=== PATIENT | female | born 1995 | race Caucasian/White ===

== ENCOUNTER 2017-11-15 20:39 | Emergency (ER) | payer BC, MEDICAID, SELFPAY ==
[2017-11-15 20:41] VITALS: BP 112/75; PULSE 84; RESP 15; TEMP 36.8; O2SAT 100; BMI 22.4
--- NOTE | 2017-11-15 21:23 | US_ITS ---
STUDY: FIRST TRIMESTER OBSTETRICAL ULTRASOUND REASON FOR EXAM: Female, 22 years old. . Pain. LMP: 08/29/2017 TECHNIQUE: Grayscale, color and Doppler images were obtained by transvaginal scanning PRIOR ULTRASOUND: None. FINDINGS: There is visualization of a single gestational sac in a normal intrauterine position. There is a visualized yolk sac. There is visualization of a live embryo. The crown-rump length (CRL) measures 4.5 cm, indicating an estimated gestational age (EGA) of 11 weeks, 3 days. There is demonstrated cardiac activity with a heart rate of 178 bpm. The uterus measures 9.6 x 7.4 x 5.8. There is no demonstrated uterine fibroid. The cervix is closed. The right ovary measures 3.5 x 2.6 x 2.7 cm. There is no right ovarian cyst. There is no visualized right adnexal mass or complex lesion. The left ovary measures 2.8 x 1.8 x 1.2 cm. There is no left ovarian cyst. There is no visualized left adnexal mass or complex lesion. There is no fluid in the cul de sac. US/Transvaginal w/Preg US IMPRESSION: Single live intrauterine gestation, as described above. Electronically Signed: Skinny Vanessa, at 22:37 EST Tel , Service support ,
--- NOTE | 2017-11-15 21:27 | ED.VISSUMM ---
- ER Visit Summary Date of Service: 11/15/17 Chief Complaint: [Pelvic cramping] History of Present Illness: The patient is a 22 F who presents the emergency department. She is 11 weeks . Yesterday she had a gastroenteritis and was vomiting with diarrhea. She spent 4 hours in the emergency department. She received Phenergan. This morning she had a brownish vaginal discharge. This afternoon about 3 PM she started having lower abdominal cramping. She feels pressure in her lower pelvis. This is her first . She is followed by Bonnie Watson. She had an ultrasound at 9 weeks which is unremarkable. She does complain of some mild dysuria today] Physical Examination: [] Vital signs normal WN WD NAD PERRL EOMI MMM NECK supple and nontender, no masses RRR no murmur rub or gallop, no peripheral edema, symmetric radial pulses CTAB no respiratory distress ABDOMEN is soft she has mild tenderness of bilateral lower quadrants and suprapubic area, normal bowel sounds, no distension, no rebound or guarding SKIN is warm and dry no rashes Alert and Oriented x3, CN II-XII in tact, no motor or sensory deficits, gait normal No lymphadenopathy Test Results: [] Emergency Department Course and Treatment: [Screening ABO blood type was sent. Serum hCG was sent. Patient was given Tylenol for discomfort. Ultrasound was ordered. Ultrasound was obtained and showed a live IUP with a heart rate of 178 gestational age 11 weeks and 3 days. Blood type was O+ serum hCG was 73,000. Pelvic exam showed a closed cervix with thick white discharge. GC and Chlamydia cultures were sent. Patient did continue to have cramping however there was no blood on exam and she reported no more bleeding. I did precaution her about the possibility of miscarriage and she understands reasons for which to return and will follow up with her APPLICATION INTEGRATOR] Treatment Plan: [] Disposition: [Discharge] Impression: [Threatened miscarriage] This note was generated with [employer] dictation software. It may contain incorrect words, spelling, and punctuation that were not noted in review of the chart prior to signing ED Disposition - Plan for ED Patient: Chief Complaint: Vag Bld, Preg Referrals: Kevin Stauffer MD [Primary Care Provider] -
[2017-11-15] MEDS: Acetaminophen 500 MG Tablet 1000 MG PO (21:28)
[2017-11-15 22:24] LABS: Color, Urine Yellow (Yellow); Glucose, Dipstick Normal (Normal); Ketone-Dipstick Negative (Negative); Leukocyte Esterase-Dipstick Negative /ul (Negative); Nitrite-Dipstick Negative (Negative); Occult Blood-Urine 25 /ul (Negative); Protein-Dipstick Negative (Negative); Specific Gravity, Urine 1.025 (1.002-1.030); Urine Bilirubin Dipstick Negative (Negative); Urine Clarity Clear (Clear); Urine Urobilinogen Normal (Normal)
[2017-11-15 22:36] LABS: Squamous Epithelial Cells - UA 0-5 SEEN /hpf (5-10)
[2017-11-15 22:37] LABS: Bacteria RARE /hpf (None Seen); Mucous, Urine 1+ /hpf (<or=2+); Red Blood Cells-Urine 0-5 SEEN /hpf (0-5); White Blood Cells 0 SEEN /hpf (0-5)
--- NOTE | 2017-11-15 23:26 | ED.DEP ---
ED Disposition - Plan for ED Patient: Chief Complaint: Vag Bld, Preg Instructions: ED Miscarriage Poss Referrals: Diana Andrade MD [STAFF PHYSICIAN] - 11/17/17
[2017-11-15 23:35] VITALS: BP 119/74; PULSE 73; RESP 18; O2SAT 99
[2017-11-16 01:24] LABS: Chlamydia Trachomatis by PCR Negative (Negative); Neisserai gonorrhoeae by PCR Negative (Negative); Probe Check PASS; Sample Adequacy Control PASS; Specimen Processing Control PASS
== END 2017-11-15 23:36 | disposition home or self-care (01) ==
LOC: ED 21:32
PROVIDERS: Emergency Provider Emergency Medicine; Family Provider Family Medicine; PCP Family Medicine
DX: O20.0 Threatened abortion (principal); Z3A.11 11 weeks gestation of pregnancy
CPT/HCPCS: 76817; 81001; 84702; 86900; 86901; 87491; 87591; 99283; J7030

== ENCOUNTER → 2017-11-30 14:51 | Outpatient (CLI) | payer BC, MEDICAID, SELFPAY ==
[2017-11-30 16:25] LABS: Free T3 2.2 pg/mL (2.18-3.98); T4 Free Direct 1.09 ng/dL (0.76-1.46); Thyroid Stim Hormone (TSH) 7.79 uIU/mL (0.358-3.74)
== END ==
PROVIDERS: Family Provider Family Medicine; PCP Family Medicine; Visit Provider Obstetrics & Gynecology
DX: O99.280 Endocrine, nutritional and metabolic diseases complicating pregnancy, unspecified trimester (principal); E03.9 Hypothyroidism, unspecified; Z3A.00 Weeks of gestation of pregnancy not specified
CPT/HCPCS: 36415; 84439; 84443; 84481

== ENCOUNTER → 2017-12-28 09:55 | Outpatient (CLI) | payer BC, MEDICAID, SELFPAY ==
[2017-12-28 11:02] LABS: Free T3 2.7 pg/mL (2.18-3.98); T4 Free Direct 1.31 ng/dL (0.76-1.46); Thyroid Stim Hormone (TSH) 3.68 uIU/mL (0.358-3.74)
[2017-12-31 03:01] LABS: AFP MoM Value 1.03 (.); AFP Value-EIA 41.5 ng/mL (.); Comment Report (.); DIA MoM Value 1.18 (.); DIA Value-EIA 211.04 pg/mL (.); DSR (By Age) 1022 (.); DSR (Second Trimester) 6187 (.); Gestat. Age Based On As provided (.); Gestational Age 17.3 WEEKS (.); Insulin Dep Diabetes No (.); Maternal Age At EDD 25.2 YEARS (.)
== END ==
PROVIDERS: Visit Provider Obstetrics & Gynecology
DX: O99.282 Endocrine, nutritional and metabolic diseases complicating pregnancy, second trimester (principal); E03.9 Hypothyroidism, unspecified; Z3A.00 Weeks of gestation of pregnancy not specified
CPT/HCPCS: 36415; 82105; 82677; 84439; 84443; 84481; 84702; 86336

== ENCOUNTER 2018-02-09 09:02 | Emergency (ER) | payer BC, MEDICAID, SELFPAY ==
[2018-02-09 09:03] VITALS: BP 128/70; PULSE 106; RESP 24; TEMP 36.8; O2SAT 100; BMI 25.0
--- NOTE | 2018-02-09 09:29 | ED.DCSUM_ITS ---
- ER Visit Summary Date of Service: 02/09/18 Chief Complaint: Cough and congestion History of Present Illness: The patient is a 22 F history of asthma, anemia and currently 6 months . For last 3-4 days she has had nasal congestion and a nonproductive cough. She denies hemoptysis. Only chest pain is with coughing. No fever. No vomiting some mild diarrhea no dysuria. No vaginal bleeding. Her due date is May of this year. Physical Examination: Appearing young female no acute distress. Pulse ox 100% on room air no signs of hypoxia. H EENT exam nasal congestion clear rhinorrhea. Posterior pharynx moist and pink without erythema or exudate. No trouble breathing or swallowing no drooling or stridor neck nontender no JVD no lymphadenopathy. Lungs dry cough but no rales, rhonchi or wheezing equal and symmetrical no distress heart regular rhythm rate about 100 205 no murmur. Abdomen is soft and nontender. Normal bowel sounds no peritoneal signs. Gravid nontender uterus she is moving all 4 extremities. Calves are nontender without edema or cords. Neurologically she is awake and alert without focal deficits. Posterior lung auscultation is unchanged. Test Results: X-ray AP and lateral view no acute abnormality read both by myself the radiologist. Emergency Department Course and Treatment: The patient is a viral URI. She does not need antibiotics. She is not wheezing I do not feel she needs steroids and reportedly in the past she had angioedema when she was taking steroids and and Zithromax in the right unsure which one caused the reaction. She had to be intubated that time Treatment Plan: Patient is doing well on repeat exam at 1023. She will be treated as a viral URI. Disposition: Discharged Impression: Viral bronchitis 6 months This note was generated with [employer] dictation software. It may contain incorrect words, spelling, and punctuation that were not noted in review of the chart prior to signing ED Disposition - Plan for ED Patient: Chief Complaint: Shortness of Breath Referrals: Kevin Stauffer MD [Primary Care Provider] -
--- NOTE | 2018-02-09 09:35 | RAD_ITS ---
STUDY: X-RAY CHEST REASON FOR EXAM: Female, 22 years old. Cough and shortness of breath. The patient is six-month . The patient was shielded appropriately. TECHNIQUE: PA and lateral views of the chest. COMPARISON: Comparison is made with prior study dated October 17, 2015. FINDINGS: The lungs are clear and expanded. There is no demonstrated pleural abnormality. Normal size heart. Normal mediastinum and phillip. Normal visualized pulmonary arteries. Normal visualized aortic arch and descending thoracic aorta. Normal visualized thoracic spine. Normal visualized ribs, clavicles, and shoulders. There is no demonstrated abnormality of the visualized soft tissue structures of the upper abdomen. RAD/Chest PA and Lateral IMPRESSION: Normal x-ray examination of the chest. Electronically Signed: Lonnie Kim MD at 9:50 EDT Tel [phone], Service support ,
[2018-02-09] MEDS: Ipratropium/Albuterol Sulfate 3 ML AMPUL.NEB INHALATION (09:40)
[2018-02-09 09:42] VITALS: PULSE 116; RESP 21; O2SAT 100
--- NOTE | 2018-02-09 10:25 | ED.DEP ---
ED Disposition - Plan for ED Patient: Disposition: Home or Assisted Living Chief Complaint: Shortness of Breath Instructions: ED URI Viral Referrals: Kevin Stauffer MD [Primary Care Provider] - 1 Week if not improving Additional Instructions: Fluids and rest. Tylenol as needed.
== END 2018-02-09 10:39 | disposition home or self-care (01) ==
PROVIDERS: Emergency Provider Emergency Medicine; Family Provider Family Medicine; PCP Family Medicine
DX: O26.893 Other specified pregnancy related conditions, third trimester (principal); J06.9 Acute upper respiratory infection, unspecified; J20.8 Acute bronchitis due to other specified organisms; Z3A.00 Weeks of gestation of pregnancy not specified
CPT/HCPCS: 71046; 94640; 99282

== ENCOUNTER 2018-02-13 18:30 | Outpatient (CLI) | payer BC, MEDICAID, SELFPAY ==
[2018-02-13 18:42] VITALS: BMI 25.7
[2018-02-13 19:35] LABS: Mucous, Urine 0 SEEN /hpf (<or=2+); Squamous Epithelial Cells - UA 0 SEEN /hpf (5-10)
[2018-02-13] MEDS: Acetaminophen 500 MG Tablet 1000 MG PO (19:40)
[2018-02-13] MEDS: Nitrofurantoin Macrocrystals 100 MG Capsule PO (19:40)
[2018-02-13 19:50] LABS: Color, Urine Yellow (Yellow); Glucose, Dipstick Normal (Normal); Ketone-Dipstick Negative (Negative); Leukocyte Esterase-Dipstick 500 /ul (Negative); Nitrite-Dipstick Negative (Negative); Occult Blood-Urine 150 /ul (Negative); Protein-Dipstick 30 mg/dl (Negative); Urine Bilirubin Dipstick Negative (Negative); Urine Clarity Sl. Cloudy (Clear); Urine Urobilinogen Normal (Normal)
[2018-02-13] MEDS: Phenazopyridine 95 MG Tablet 190 MG PO (19:51)
[2018-02-13 20:51] LABS: Bacteria 2+ /hpf (None Seen); Red Blood Cells-Urine 10-25 SEEN /hpf (0-5); White Blood Cells 50-100 SEEN /hpf (0-5)
[2018-02-13 21:04] VITALS: TEMP 35.9
--- NOTE | 2018-02-14 07:57 | OB.TRI.NOTE ---
History of Present Illness Date of Service: 02/13/18 Was patient seen by the physician?: No Reason For Visit: BLEEDING cramping dysuria Date of Service: 02/13/18 Final MORRO: 06/05/18 Gestational age: 24 Weeks and 0 Days History of Present Illness: 22 yo female presents at 24 wk with pain with urination, lower abdominal cramping and some spotting. She had intercourse recently. No continued bleeding. + FM. unsure if contractions. no ROM. Home Medications Medication Instructions Recorded Levothyroxine [Synthroid] 150 mcg PO DAILY 02/04/16 Vit No.130/Iron/FA 1 each PO DAILY 02/27/17 [ Vitamins] Pyridoxine HCl [Vitamin B-6] 100 mg PO DAILY 11/14/17 Kelp 150 mcg PO DAILY 02/09/18 Allergies azithromycin [From Zithromax Z-Ruiz] Allergy (Verified 02/09/18 09:03) Anaphylaxis bacitracin [From Neosporin (vtz-zat-ccslh)] Allergy (Verified 02/09/18 09:03) Swelling bacitracin zinc [From Neosporin (rma-vre-qlxzd)] Allergy (Verified 02/09/18 09:03) Swelling ketorolac [From Toradol] Allergy (Verified 02/09/18 09:03) Other latex Allergy (Verified 02/09/18 09:03) Rash neomycin sulfate [From Neosporin (nma-ojm-mngje)] Allergy (Verified 02/09/18 09:03) Swelling polymyxin B [From Neosporin (ruf-ppo-gfhvy)] Allergy (Verified 02/09/18 09:03) Swelling prednisone Allergy (Verified 02/09/18 09:03) Anaphylaxis EXCEDRIN Allergy (Uncoded 02/09/18 09:03) Anaphylaxis Physical Exam Vitals: Vital Signs Temp 96.6 F L 02/13/18 21:04 NST - FHR Rate Baby A Baseline: 130s with accels to 150s Variability:: Moderate Accelerations:: 10 x 10 Decelerations:: None NST Reactive:: Yes, Appropriate for gestational age FHR Category:: Category I Uterine Activity:: No UCs noted Impression/Plan 24 wk EGA UA with 150 occult blood 500 LE, 2+ bacteria. Sp Gr 1.020 Urinary tract infection, w/o fever or CVAT Macrobid and Pyridium given Macrobid x 7 d planned and RX [facility] appt as planned.
--- NOTE | 2018-02-14 08:02 | OB.TRI.HP_ITS ---
History of Present Illness Date of Service: 02/13/18 Was patient seen by the physician?: No Reason For Visit: BLEEDING cramping dysuria Date of Service: 02/13/18 Final MORRO: 06/05/18 Gestational age: 24 Weeks and 0 Days History of Present Illness: 22 yo female presents at 24 wk with pain with urination, lower abdominal cramping and some spotting. She had intercourse recently. No continued bleeding. + FM. unsure if contractions. no ROM. Home Medications Medication Instructions Recorded Levothyroxine [Synthroid] 150 mcg PO DAILY 02/04/16 Vit No.130/Iron/FA 1 each PO DAILY 02/27/17 [ Vitamins] Pyridoxine HCl [Vitamin B-6] 100 mg PO DAILY 11/14/17 Kelp 150 mcg PO DAILY 02/09/18 Allergies azithromycin [From Zithromax Z-Ruiz] Allergy (Verified 02/09/18 09:03) Anaphylaxis bacitracin [From Neosporin (qve-uam-nqrqo)] Allergy (Verified 02/09/18 09:03) Swelling bacitracin zinc [From Neosporin (dzk-mzw-jssec)] Allergy (Verified 02/09/18 09: 03) Swelling ketorolac [From Toradol] Allergy (Verified 02/09/18 09:03) Other latex Allergy (Verified 02/09/18 09:03) Rash neomycin sulfate [From Neosporin (doa-ove-zlmll)] Allergy (Verified 02/09/18 09: 03) Swelling polymyxin B [From Neosporin (cfp-ngl-tarpt)] Allergy (Verified 02/09/18 09:03) Swelling prednisone Allergy (Verified 02/09/18 09:03) Anaphylaxis EXCEDRIN Allergy (Uncoded 02/09/18 09:03) Anaphylaxis Physical Exam Vitals: Vital Signs Temp 96.6 F L 02/13/18 21:04 NST - FHR Rate Baby A Baseline: 130s with accels to 150s Variability:: Moderate Accelerations:: 10 x 10 Decelerations:: None NST Reactive:: Yes, Appropriate for gestational age FHR Category:: Category I Uterine Activity:: No UCs noted Impression/Plan 24 wk EGA UA with 150 occult blood 500 LE, 2+ bacteria. Sp Gr 1.020 Urinary tract infection, w/o fever or CVAT Macrobid and Pyridium given Macrobid x 7 d planned and RX [facility] appt as planned.
== END 2018-02-13 21:05 | disposition home or self-care (01) ==
LOC: WPOUT 18:30 → WP 18:31
PROVIDERS: Family Provider Family Medicine; PCP Family Medicine; Visit Provider Obstetrics & Gynecology
DX: O23.42 Unspecified infection of urinary tract in pregnancy, second trimester (principal); Z3A.24 24 weeks gestation of pregnancy
CPT/HCPCS: 59025; 59050; 81001; 87077; 87086; 87088; 87186; 99218; G0378

== ENCOUNTER → 2018-02-22 10:56 | Outpatient (CLI) | payer BC, MEDICAID, SELFPAY ==
[2018-02-22 14:34] LABS: Free T3 2.7 pg/mL (2.18-3.98); T4 Free Direct 1.13 ng/dL (0.76-1.46); Thyroid Stim Hormone (TSH) 0.56 uIU/mL (0.358-3.74)
== END ==
PROVIDERS: Visit Provider Obstetrics & Gynecology
DX: O99.282 Endocrine, nutritional and metabolic diseases complicating pregnancy, second trimester (principal); E03.9 Hypothyroidism, unspecified; Z3A.00 Weeks of gestation of pregnancy not specified
CPT/HCPCS: 36415; 84439; 84443; 84481

== ENCOUNTER → 2018-03-20 11:29 | Outpatient (CLI) | payer BC, MEDICAID, SELFPAY ==
[2018-03-20 11:40] LABS: Mucous, Urine 0 SEEN /hpf (<or=2+); Red Blood Cells-Urine 0 SEEN /hpf (0-5)
[2018-03-20 13:51] LABS: Color, Urine Yellow (Yellow); Glucose, Dipstick Normal (Normal); Ketone-Dipstick Negative (Negative); Leukocyte Esterase-Dipstick Negative /ul (Negative); Nitrite-Dipstick Negative (Negative); Occult Blood-Urine 10 /ul (Negative); Protein-Dipstick Negative (Negative); Urine Bilirubin Dipstick Negative (Negative); Urine Clarity Cloudy (Clear); Urine Urobilinogen Normal (Normal)
[2018-03-20 14:05] LABS: Hematocrit 29.9 % (37-47); Hemoglobin 9.7 g/dl (12.0-15.0); Mean Corp Hgb Conc 32.4 g/gl (32-36); Mean Corpuscular Hgb 26.3 pg (27.0-32.0); Mean Platelet Vol. 10.4 fl (6.2-12.0); Platelet Count 299 K/mm3 (150-450); RBC Distribution Width CV 14.1 % (11.6-14.6); RBC Distribution Width SD 40.3 fl (35.1-43.9); Red Blood Count 3.69 M/mm3 (4.2-5.4); White Blood Count 13.3 K/mm3 (4.4-11.0)
[2018-03-20 14:09] LABS: Amorphous Sediment 3+; Bacteria 2+ /hpf (None Seen); Squamous Epithelial Cells - UA 0-5 SEEN /hpf (5-10); White Blood Cells 0-5 SEEN /hpf (0-5)
[2018-03-20 14:10] LABS: Scan Indicated on CBC? Y/N NO
[2018-03-20 15:58] LABS: Glucose Challenge Gest 1H 50g 119 mg/dL (70-140)
== END ==
PROVIDERS: Visit Provider Obstetrics & Gynecology
DX: O23.40 Unspecified infection of urinary tract in pregnancy, unspecified trimester (principal); Z3A.00 Weeks of gestation of pregnancy not specified
CPT/HCPCS: 36415; 81001; 82950; 85027; 87086; 87088

== ENCOUNTER → 2018-04-20 16:15 | Outpatient (CLI) | payer BC, MEDICAID, SELFPAY ==
[2018-04-20 16:44] LABS: Hematocrit 33.1 % (37-47); Hemoglobin 10.5 g/dl (12.0-15.0); Mean Corp Hgb Conc 31.7 g/gl (32-36); Mean Corpuscular Hgb 25.3 pg (27.0-32.0); Mean Corpuscular Volume 79.8 fL (81-99); Mean Platelet Vol. 9.9 fl (6.2-12.0); Platelet Count 270 K/mm3 (150-450); RBC Distribution Width CV 14.3 % (11.6-14.6); RBC Distribution Width SD 41.5 fl (35.1-43.9); Red Blood Count 4.15 M/mm3 (4.2-5.4); White Blood Count 13.6 K/mm3 (4.4-11.0)
[2018-04-20 17:03] LABS: ALB/GLOB Ratio 0.6 RATIO (0.9-2.4); AST(SGOT) 11 U/L (15-37); Alanine Aminotransfer ALT/SGPT 16 U/L (13-56); Albumin, Serum 2.8 g/dL (3.2-5.0); Alkaline Phosphatase 87 U/L (45-117); Anion Gap 10 (5-15); BUN 4 mg/dL (7-18); BUN/Creat Ratio 8.1 RATIO (10-20); Calcium,Total 8.2 mg/dL (8.5-10.1); Chloride 105 mmol/L (98-107); Creatinine, Serum 0.49 mg/dL (0.55-1.02); EST Glomerular Filtration Rate 162 mL/min (>60); Est Glom Filt Rate - Afr Amer 196 mL/min (>60); Globulin 4.5 g/dL (2.2-4.2); Glucose 70 mg/dL (74-106); Potassium 3.4 mmol/L (3.5-5.1); Protein, Total 7.3 g/dL (6.4-8.2); Sodium Level 139 mmol/L (136-145); Uric Acid 3.1 mg/dL (2.6-6.0)
[2018-04-20 17:05] LABS: Scan Indicated on CBC? Y/N NO
[2018-04-20 17:20] LABS: Fetal Fibronectin Negative
[2018-04-20 17:26] LABS: Protein, Urine (Random) 22.8 mg/dL (<11.9)
== END ==
PROVIDERS: Visit Provider Obstetrics & Gynecology
DX: Z34.83 Encounter for supervision of other normal pregnancy, third trimester (principal); R10.9 Unspecified abdominal pain
CPT/HCPCS: 36415; 80053; 82570; 82731; 84156; 84550; 85027

== ENCOUNTER 2018-04-27 15:10 | Outpatient (CLI) | payer BC, MEDICAID, SELFPAY ==
[2018-04-27 15:35] VITALS: BMI 28.0
[2018-04-27 15:52] LABS: ROM Internal Control Test YES-OK TO RESULT pt. (Internal QC); ROM Patient Test Negative (Negative)
[2018-04-27 16:16] LABS: Mucous, Urine 0 SEEN /hpf (<or=2+)
[2018-04-27 16:41] LABS: Color, Urine Yellow (Yellow); Glucose, Dipstick Normal (Normal); Ketone-Dipstick Negative (Negative); Leukocyte Esterase-Dipstick Negative /ul (Negative); Nitrite-Dipstick Negative (Negative); Occult Blood-Urine 250 /ul (Negative); Protein-Dipstick Negative (Negative); Urine Bilirubin Dipstick Negative (Negative); Urine Clarity Sl. Cloudy (Clear); Urine Urobilinogen Normal (Normal)
[2018-04-27 16:57] LABS: Bacteria RARE /hpf (None Seen); Red Blood Cells-Urine 0-5 SEEN /hpf (0-5); Squamous Epithelial Cells - UA 0-5 SEEN /hpf (5-10); White Blood Cells 0-5 SEEN /hpf (0-5)
--- NOTE | 2018-04-30 07:53 | OB.TRI.NOTE ---
History of Present Illness Date of Service: 04/27/18 Was patient seen by the physician?: No Reason For Visit: R/O PREMATURE LABOR Date of Service: 04/27/18 Final MORRO: 06/05/18 Gestational age: 34 Weeks and 3 Days History of Present Illness: 23 yo female at 34 3/7 wk with CC of abdominal pain starting at 1400 and ? SROM. with a jaycee of fluid after voiding. Allergies azithromycin [From Zithromax Z-Ruiz] Allergy (Verified 02/09/18 09:03) Anaphylaxis bacitracin [From Neosporin (vwr-kor-louwx)] Allergy (Verified 02/09/18 09:03) Swelling bacitracin zinc [From Neosporin (nro-pob-imogk)] Allergy (Verified 02/09/18 09:03) Swelling ketorolac [From Toradol] Allergy (Verified 02/09/18 09:03) Other latex Allergy (Verified 02/09/18 09:03) Rash neomycin sulfate [From Neosporin (xnu-hnu-qwrst)] Allergy (Verified 02/09/18 09:03) Swelling polymyxin B [From Neosporin (hcs-rmh-drhys)] Allergy (Verified 02/09/18 09:03) Swelling prednisone Allergy (Verified 02/09/18 09:03) Anaphylaxis EXCEDRIN Allergy (Uncoded 02/09/18 09:03) Anaphylaxis Physical Exam Cervix Dilation (cm): 0 - Ext os FT, Int os CL Station: -3 Effacement (%): 0 - ROM NEGATIVE NST - FHR Rate Baby A Baseline: 120-130 with accels to 170s variable to 100 (quick return) Variability:: Moderate Accelerations:: 15 x 15 Decelerations:: Variable NST Reactive:: Yes, Appropriate for gestational age FHR Category:: Category I Uterine Activity:: Irreg UCs with irritability noted Impression/Plan 34 3/7 wk FALSE LABOR ROM NEG UA occult blood, but rare bacteria. NEG for UTI Home. Labor warnings Keep next appt as scheduled with Dr. HIDALGO. Return to hospital if inc s/sx of labor.
--- NOTE | 2018-04-30 08:00 | OB.TRI.HP_ITS ---
History of Present Illness Date of Service: 04/27/18 Was patient seen by the physician?: No Reason For Visit: R/O PREMATURE LABOR Date of Service: 04/27/18 Final MORRO: 06/05/18 Gestational age: 34 Weeks and 3 Days History of Present Illness: 23 yo female at 34 3/7 wk with CC of abdominal pain starting at 1400 and ? SROM. with a jaycee of fluid after voiding. Allergies azithromycin [From Zithromax Z-Ruiz] Allergy (Verified 02/09/18 09:03) Anaphylaxis bacitracin [From Neosporin (wam-yrr-dvdhx)] Allergy (Verified 02/09/18 09:03) Swelling bacitracin zinc [From Neosporin (woe-hrg-jvlak)] Allergy (Verified 02/09/18 09: 03) Swelling ketorolac [From Toradol] Allergy (Verified 02/09/18 09:03) Other latex Allergy (Verified 02/09/18 09:03) Rash neomycin sulfate [From Neosporin (rhu-zvr-hkeng)] Allergy (Verified 02/09/18 09: 03) Swelling polymyxin B [From Neosporin (qua-dxz-ycxpe)] Allergy (Verified 02/09/18 09:03) Swelling prednisone Allergy (Verified 02/09/18 09:03) Anaphylaxis EXCEDRIN Allergy (Uncoded 02/09/18 09:03) Anaphylaxis Physical Exam Cervix Dilation (cm): 0 - Ext os FT, Int os CL Station: -3 Effacement (%): 0 - ROM NEGATIVE NST - FHR Rate Baby A Baseline: 120-130 with accels to 170s variable to 100 (quick return) Variability:: Moderate Accelerations:: 15 x 15 Decelerations:: Variable NST Reactive:: Yes, Appropriate for gestational age FHR Category:: Category I Uterine Activity:: Irreg UCs with irritability noted Impression/Plan 34 3/7 wk FALSE LABOR ROM NEG UA occult blood, but rare bacteria. NEG for UTI Home. Labor warnings Keep next appt as scheduled with Dr. HIDALGO. Return to hospital if inc s/sx of labor.
== END 2018-04-27 18:15 | disposition home or self-care (01) ==
LOC: WPOUT 15:15 → WP 15:16
PROVIDERS: Family Provider Family Medicine; PCP Family Medicine; Visit Provider Obstetrics & Gynecology
DX: O47.03 False labor before 37 completed weeks of gestation, third trimester (principal); Z3A.34 34 weeks gestation of pregnancy
CPT/HCPCS: 59025; 59050; 81001; 84112; 99218; G0378

== ENCOUNTER → 2018-05-09 11:03 | Outpatient (CLI) | payer BC, MEDICAID, SELFPAY ==
[2018-05-09 17:14] LABS: Group B Strep DNA By PCR Negative (Negative); Internal Control PASS; Probe Check PASS; Specimen Processing Control PASS
== END ==
PROVIDERS: Visit Provider Obstetrics & Gynecology
DX: Z36.85 Encounter for antenatal screening for Streptococcus B (principal)
CPT/HCPCS: 87081; 87653

== ENCOUNTER 2018-05-19 10:55 | Outpatient (CLI) | payer BC, MEDICAID, SELFPAY ==
[2018-05-19 11:21] VITALS: BMI 28.8
[2018-05-19 11:50] LABS: Bacteria 0 SEEN /hpf (None Seen); Mucous, Urine 0 SEEN /hpf (<or=2+); Red Blood Cells-Urine 0 SEEN /hpf (0-5); White Blood Cells 0 SEEN /hpf (0-5)
[2018-05-19 11:58] LABS: Color, Urine Yellow (Yellow); Glucose, Dipstick Normal (Normal); Ketone-Dipstick Negative (Negative); Leukocyte Esterase-Dipstick Negative /ul (Negative); Nitrite-Dipstick Negative (Negative); Occult Blood-Urine Negative /ul (Negative); Protein-Dipstick Negative (Negative); Urine Bilirubin Dipstick Negative (Negative); Urine Clarity Clear (Clear); Urine Urobilinogen Normal (Normal)
[2018-05-19 12:05] LABS: Squamous Epithelial Cells - UA 0-5 SEEN /hpf (5-10)
--- NOTE | 2018-05-20 08:03 | OB.TRI.NOTE ---
History of Present Illness Date of Service: 05/19/18 Was patient seen by the physician?: No Reason For Visit: R/O LABOR Date of Service: 05/19/18 Final MORRO: 06/05/18 Final MORRO Source: US <20 weeks Gestational age: 37 Weeks and 5 Days History of Present Illness: C/O contractions and pressure. Allergies azithromycin [From Zithromax Z-Ruiz] Allergy (Verified 02/09/18 09:03) Anaphylaxis bacitracin [From Neosporin (jwo-nvg-ghhbx)] Allergy (Verified 02/09/18 09:03) Swelling bacitracin zinc [From Neosporin (aey-qpv-qyydu)] Allergy (Verified 02/09/18 09:03) Swelling ketorolac [From Toradol] Allergy (Verified 02/09/18 09:03) Other latex Allergy (Verified 02/09/18 09:03) Rash neomycin sulfate [From Neosporin (bsd-znc-jvjzi)] Allergy (Verified 02/09/18 09:03) Swelling polymyxin B [From Neosporin (eii-tii-oxjdj)] Allergy (Verified 02/09/18 09:03) Swelling prednisone Allergy (Verified 02/09/18 09:03) Anaphylaxis EXCEDRIN Allergy (Uncoded 02/09/18 09:03) Anaphylaxis Physical Exam General: Alert, Oriented x3, Cooperative, No apparent distress Cardiovascular: Regular rate, Regular Rhythm Lungs: Clear to auscultation, Normal air movement Abdomen: Bowel Sounds Present, Soft, Non Tender, Non-Distended, Gravid, Appropriate for Gestational Age Extremities:: No edema Neurological: Neuro 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 Signs and symptoms of labor and SROM reviewed with the patient. Will followup in office or return with increasing symptoms of labor.
--- NOTE | 2018-05-20 08:06 | OB.TRI.HP_ITS ---
History of Present Illness Date of Service: 05/19/18 Was patient seen by the physician?: No Reason For Visit: R/O LABOR Date of Service: 05/19/18 Final MORRO: 06/05/18 Final MORRO Source: US <20 weeks Gestational age: 37 Weeks and 5 Days History of Present Illness: C/O contractions and pressure. Allergies azithromycin [From Zithromax Z-Ruiz] Allergy (Verified 02/09/18 09:03) Anaphylaxis bacitracin [From Neosporin (yda-fdh-zxclm)] Allergy (Verified 02/09/18 09:03) Swelling bacitracin zinc [From Neosporin (eeq-imc-ccnvi)] Allergy (Verified 02/09/18 09: 03) Swelling ketorolac [From Toradol] Allergy (Verified 02/09/18 09:03) Other latex Allergy (Verified 02/09/18 09:03) Rash neomycin sulfate [From Neosporin (rbx-sdy-kuyco)] Allergy (Verified 02/09/18 09: 03) Swelling polymyxin B [From Neosporin (tyl-lia-oopfm)] Allergy (Verified 02/09/18 09:03) Swelling prednisone Allergy (Verified 02/09/18 09:03) Anaphylaxis EXCEDRIN Allergy (Uncoded 02/09/18 09:03) Anaphylaxis Physical Exam General: Alert, Oriented x3, Cooperative, No apparent distress Cardiovascular: Regular rate, Regular Rhythm Lungs: Clear to auscultation, Normal air movement Abdomen: Bowel Sounds Present, Soft, Non Tender, Non-Distended, Gravid, Appropriate for Gestational Age Extremities:: No edema Neurological: Neuro 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 Signs and symptoms of labor and SROM reviewed with the patient. Will followup in office or return with increasing symptoms of labor.
== END 2018-05-19 12:30 | disposition home or self-care (01) ==
LOC: WPOUT 11:00 → WP 11:01
PROVIDERS: Family Provider Family Medicine; PCP Family Medicine; Visit Provider Obstetrics & Gynecology
DX: O47.1 False labor at or after 37 completed weeks of gestation (principal); Z3A.37 37 weeks gestation of pregnancy
CPT/HCPCS: 59025; 59050; 81001; 99218; G0378

== ENCOUNTER → 2018-05-24 13:58 | Outpatient (CLI) | payer BC, MEDICAID, SELFPAY ==
[2018-05-24 15:22] LABS: Hematocrit 34.5 % (37-47); Hemoglobin 11.4 g/dl (12.0-15.0); Mean Corpuscular Hgb 26.1 pg (27.0-32.0); Mean Corpuscular Volume 78.9 fL (81-99); Mean Platelet Vol. 11.2 fl (6.2-12.0); Platelet Count 285 K/mm3 (150-450); RBC Distribution Width CV 15.1 % (11.6-14.6); Red Blood Count 4.37 M/mm3 (4.2-5.4); White Blood Count 14.2 K/mm3 (4.4-11.0)
[2018-05-24 15:25] LABS: Scan Indicated on CBC? Y/N NO
[2018-05-24 15:55] LABS: ALB/GLOB Ratio 0.6 RATIO (0.9-2.4); AST(SGOT) 14 U/L (15-37); Alanine Aminotransfer ALT/SGPT 18 U/L (13-56); Albumin, Serum 2.7 g/dL (3.2-5.0); Alkaline Phosphatase 94 U/L (45-117); Anion Gap 11 (5-15); BUN 7 mg/dL (7-18); BUN/Creat Ratio 10.2 RATIO (10-20); Calcium,Total 8.6 mg/dL (8.5-10.1); Chloride 105 mmol/L (98-107); Creatinine, Serum 0.69 mg/dL (0.55-1.02); EST Glomerular Filtration Rate 110 mL/min (>60); Est Glom Filt Rate - Afr Amer 134 mL/min (>60); Free T3 2.4 pg/mL (2.18-3.98); Globulin 4.6 g/dL (2.2-4.2); Glucose 142 mg/dL (74-106); Potassium 3.5 mmol/L (3.5-5.1); Protein, Total 7.3 g/dL (6.4-8.2); Sodium Level 140 mmol/L (136-145); Thyroid Stim Hormone (TSH) 2.49 uIU/mL (0.358-3.74); Uric Acid 4.3 mg/dL (2.6-6.0)
[2018-05-24 16:07] LABS: Protein, Urine (Random) 21.6 mg/dL (<11.9); Protein:Creat Ratio 183 mg/g CRE (0-200)
[2018-05-28 14:07] LABS: Hemoglobin Fraction A 97.8 % (96.4-98.8); Hemoglobin Fraction A2 2.2 % (1.8-3.2); Hemoglobin Fraction C 0 % (0.0); Hemoglobin Fraction F 0 % (0.0-2.0); Hemoglobin Fraction S 0 % (0.0); Hemoglobin Solubility,Panel Negative (Negative)
== END ==
PROVIDERS: Visit Provider Obstetrics & Gynecology
DX: O99.019 Anemia complicating pregnancy, unspecified trimester (principal); D64.9 Anemia, unspecified; Z3A.00 Weeks of gestation of pregnancy not specified
CPT/HCPCS: 36415; 80053; 82570; 83021; 84156; 84439; 84443; 84481; 84550; 85027; 85660

== ENCOUNTER 2018-05-30 15:13 | Inpatient (IN) | payer BC, MEDICAID, SELFPAY ==
[2018-05-30 15:47] VITALS: BMI 27.6
[2018-05-30] MEDS: Lactated Ringers 1,000 ML 50 ML IV ×2 (15:50→22:40)
[2018-05-30 16:09] LABS: Hematocrit 34.2 % (37-47); Hemoglobin 11.4 g/dl (12.0-15.0); Mean Corp Hgb Conc 33.3 g/gl (32-36); Mean Corpuscular Hgb 26.3 pg (27.0-32.0); Mean Corpuscular Volume 78.8 fL (81-99); Mean Platelet Vol. 10.9 fl (6.2-12.0); Platelet Count 298 K/mm3 (150-450); RBC Distribution Width CV 15.4 % (11.6-14.6); RBC Distribution Width SD 42.1 fl (35.1-43.9); Red Blood Count 4.34 M/mm3 (4.2-5.4); White Blood Count 12.6 K/mm3 (4.4-11.0)
[2018-05-30 16:15] LABS: Scan Indicated on CBC? Y/N NO
[2018-05-30] MEDS: 0.9% Saline Lock 10 ML Syringe IV (19:44)
[2018-05-30] MEDS: Nalbuphine 10 MG/ML Ampul IV (19:44)
[2018-05-30] MEDS: fentaNYL-bupivacaine (epidural) 100 ML BAG EPIDURAL (23:34)
[2018-05-30] MEDS: Ondansetron 4 MG/2 ML Vial IV (23:56)
[2018-05-31] VITALS (15 sets, daily range): BP systolic 97–139; BP diastolic 56–82; PULSE 87–120; RESP 15–103; TEMP 36.7–37.6; O2SAT 95–100
[2018-05-31] MEDS: Oxytocin 30 units/NS 500 ml 30 UNITS/500 ML IV.SOLN IV (00:28)
[2018-05-31] MEDS: Lactated Ringers 1,000 ML 50 ML IV ×3 (02:21→11:31)
[2018-05-31] MEDS: fentaNYL-bupivacaine (epidural) 100 ML BAG EPIDURAL (04:12)
[2018-05-31] MEDS: DiphenhydrAMINE 25 MG Capsule PO (05:55)
[2018-05-31] MEDS: Acetaminophen 325 MG Tablet PO ×2 (08:41→20:05)
[2018-05-31] MEDS: Ondansetron 4 MG/2 ML Vial IV (11:31)
--- NOTE | 2018-05-31 13:00 | PCM.PN.BLA ---
Progress Note LABOR PROGRESS NOTE Jaquelin complains of left sided body pain, worsened with contractions. She is asking about a section. AVSS GEN - Appears uncomfortable, AAO x 3 FHR 135, moderate variability, + accelerations, no decelerations TOCO 5/10 min SVE 8/80/-1, some caput present and u/l cervical edema A/P: 23yo G1 @ 39 1/7wga in labor on pitocin, Cat I FHR -IUPC placed by RN - if contractions inadequate will increase pitocin further -Recommend continue in labor. Reviewed with patient section as an alternative and will proceed if desired. risks reviewed including pain, bleeding, infection, nerve injury, hemorrhage possibly requiring further surgery including hysterectomy, bowel injury, bladder injury, ureteral injury, VTE. Patinet declines at this time. -Repeat exam in 1.5 hours and if unchanged will plan to proceed with section. -Anesthesiology consultation for further pain management
[2018-05-31] MEDS: Mag Hydrox/Al Hydrox/Simeth 30 ML UDC PO (13:06)
[2018-05-31] MEDS: Sodium Citrate/Citric Acid 30 ML UDC PO (14:30)
--- NOTE | 2018-05-31 15:27 | FALS_PTH ---
PATIENT: SONIA SZYMANSKI LOC: [facility] U#:[id number] AGE/SX: 23/F ROOM: WP008 RE05/30/[address]: Dr. Diana Watson MD : 1995 BED: 1 DIS: 06/04/2018 SPEC #: [id number] RECD: 06/01/18 11:41 STATUS: CHRIS REJamir #: [id number] LENORA: 05/31/18 15:[address]: Diana Steele DEPT: SURGICAL PATHOLOGY RECD BY: Chivo Haddad ENTERED: 06/01/18 11:41 SP TYPE: FALL TUBES OTHR DR: Dr. Kevin Stauffer MD Tissues: Fallopian tube Procedures: Surgery Specimen Level II HEADER OPERATION: Tubal ligation PRE-OP DIAGNOSIS: Desires sterilization TISSUE SUBMITTED: Fallopian tube, stitch in left tube MICROSCOPIC DIAGNOSIS Right and left fallopian tubes, bilateral partial salpingectomies: Two complete cross-sections of fallopian tubes with no pathologic change. AM:mariella 06/04/18 MICROSCOPIC DESCRIPTION Slides are reviewed. GROSS DESCRIPTION Received in fixative is one container labeled with the patient's name and designated tubes, stitch left tube. The specimen consists of two tubular pieces of craft soft tissue. The right tube measures 1 cm in length and 0.7 cm in diameter. The left tube measures 1.5 cm in length and 0.7 cm in diameter. The left tube is identified by a suture and inked black. The entire specimen is submitted in one cassette. Both pieces will be sectioned at the time of embedding. / MOISE:mariella 06/01/18 TC:5 CPT: 08558 x2
--- NOTE | 2018-05-31 16:11 | OP.PN_ITS ---
- Problem List (1) 39 weeks gestation of Status: Acute (2) Arrest of dilation, delivered, current hospitalization Status: Acute (3) delivery delivered Status: Acute H-Mqvcbmk-Qowpdmgoq PostOp Date of Procedure: 05/31/18 Primary Surgeon/Physician: Diana Andrade, bakery team leader: Ryan Mcintyre Pre-op Diagnosis: Desires elective sterilization, - - Arrest of dilation Post-Op Diagnosis: Desires elective sterilization, - - Arrest of Dilation Surgery/Procedure Performed: Primary low transverse Section, - - Bilateral tubal ligation Description of Surgical Findings:: normal tubes and ovaries and uterus Estimated Blood Loss: 600 ml Specimens Removed: placenta to [facility] Drain: [place] to straight drain Type of Anesthesia: Epidural - Admit VTE Documentation VTE Present on Admission: No VTE Mechan Device Prophylaxis: SCD's VTE Pharm Prophylaxis ordered?: No
--- NOTE | 2018-05-31 16:13 | OP.PCM_ITS ---
- Problem List (1) 39 weeks gestation of Status: Acute (2) Arrest of dilation, delivered, current hospitalization Status: Acute (3) delivery delivered Status: Acute Delivery Classification: Scheduled Final MORRO: 06/05/18 Final MORRO Source: [place] <20 weeks Gestational age: 39 Weeks and 2 Days Indications: Jaquelin is a 23-year-old 1 at 39-1/7 weeks gestational age admitted in labor. She had amniotomy and was augmented with Pitocin and progressed to 89 cm however had been 8-9 cm for more than 6 hours on Pitocin with inadequate contractions. Risks, benefits, indications and alternatives to procedure were reviewed at length. Indications for : Desires elective sterilization, Sec. Arrest of Dilitation Description of Procedure: The patient was taken to the operating room and spinal analgesia was administered. She is placed in a dorsal supine position with left lateral tilt. The perineum and abdomen were prepped and draped in sterile fashion. And the spinal was found to be adequate. A Pfannenstiel incision was made using a scalpel and brought down to incise the subcutaneous tissue and rectus fascia at the midline. Subcutaneous tissue was bluntly dissected off the fascia laterally. The fascial incision was dissected laterally and cephalad using curved Carpio scissors. The superior leaflet of the rectus fascia was grasped using Mirella clamps and bluntly dissected and sharply dissected from the underlying rectus muscle. In a similar fashion the inferior rectus fascia was dissected from the underlying muscle. The rectus muscles were bluntly at the midline. The peritoneum was identified and entered [sharply]. The bladder blade was placed into the abdomen and the vesicouterine peritoneal fold identified. The fold was incised and a bladder flap created. Bladder blade was then repositioned to the abdomen. A low transverse hysterotomy was made using the [Metzenbaum scissors] to level of the membranes. The hysterotomy was extended bluntly cephalad and caudad. The membranes were then ruptured revealing clear fluid. The head was elevated and brought to the level of the hysterotomy and the delivered revealing vigorous [ male] . A loose nuchal cord was reduced. The cord was doubly clamped and cut after 60 seconds. The infant was passed to awaiting [nursery personnel] . The placenta was [expressed] from the uterus and appeared intact on inspection. The uterus was exteriorized and cleared of debris. The hysterotomy was then repaired using 0 Vicryl running lock suture. A second imbricating layer was also placed for additional hemostasis. Attention was turned to the right adnexa and the tube was grasped using a Anival clamp. And the avascular segment of the ampullary mesosalpinx was incised using the Bovie. The proximal and distal portions of the tube were tied with 2 oh plain gut and the intervening tube excised. In similar fashion Hazel tubal ligation was also performed on the left. There is good hemostasis. The uterus and adnexa were returned to the abdomen. Srinivasan was placed along the hysterotomy site for continued hemostasis. The bladder blade was removed. The anterior cul -de-sac was cleared of debris. The peritoneum and rectus muscles were reapproximated using 2-0 Vicryl running suture. The rectus fascia was closed using 0 Vicryl running suture. The subcutaneous tissue was sponge irrigated and small capillary bleeding controlled using the Bovie device. The subcutaneous tissue was reapproximated using 2-0 Vicryl. The skin was closed using 4-0 Monocryl subcuticularly. a Mepilex occlusive dressing was placed over the incision. The fundus was firm. The patient was then transferred to the recovery room without complication. Sponge, instrument, and needle counts were correct ?2. Amniotic Membrane Rupture Type: Spontaneous Amniotic Fluid Description: Clear Placenta Disposition: [facility] Specimen(s) sent to pathology: placenta to [facility] Drain: Worley to straight drain Cord Entanglement: Around neck x 1, loose Nuchal Cord Compression: Without compression Cord Vessel Description: 3 Vessels Esitmated Blood Loss (ml): 600 Gender: Male (1 minute): 8 (5 minute): 9 Delayed cord clamping: Yes Pre-op Antibiotic Given: Ancef 2 grams IV x1 Pt instructed on risks of surgery: Bleeding, Anesthesia Risks, Infection, Need for Future C-Sections, Failure Rate of 1 to 2%, Injury to surrounding structure( s) including bowel and bladder Complications: None - Admit VTE Documentation VTE Present on Admission: No VTE Mechan Device Prophylaxis: SCD's VTE Pharm Prophylaxis ordered?: No
[2018-05-31] MEDS: Lactated Ringers 1,000 ML 100 ML IV (16:15)
--- NOTE | 2018-05-31 17:33 | NURSING ---
1730: epidural catheter removed, blue tip intact
--- NOTE | 2018-05-31 19:16 | PCM.DCCSEC ---
Discharge Diet: No Restrictions Discharge Activity: Return to Normal Activity, May Not Drive, May not drive while taking narcotic pain medications., May Shower May resume sexual activity in: 6 weeks Lifting Restrictions: 10 lb Call your doctor if your incision/area has: Continuous Slow Oozing, Sudden Increased Bleeding, Increased Pain/ Swelling, Increased Redness, Foul Smelling Discharge Call your doctor if you observe: Fever of 101 or Higher, Inability to urinate, Inability to have a bowel movement, Using more than one pad per hour, Shortness of breath, Chest pain, Calf discomfort, Uncontrolled pain Suture Line Care: Avoid Pulling/Pushing Remove Dressing in (days):: 2 Cleanse incision/area with: Soap & Water Additional Instructions: If you experience any of the following, contact your healthcare provider. Bleeding that soaks a pad every hour for 2 hours Fever 100.4 or higher Unrelieved incision or abdominal pain Swelling, redness, discharge or bleeding from your incision or episiotomy site Your incision begins to separate Problems urinating (including inability to urinate or burning while urinating). Visual changes Severe headache Flu-like symptoms Pain or redness in one of both of your breasts Pain, warmth, tenderness or swelling in your legs, especially the calf area Frequent nausea and vomiting Symptoms of depression or anxiety If you experience any of the following, call 911 or go to the nearest Emergency Room. Chest pain Problems breathing Seizure activity Partial or complete paralysis of a body part, slurred speech, weakness or drooping of the face, or a sudden inability to walk or hold your balance Allergies/Adverse Reactions: Allergies azithromycin [From Zithromax Z-Ruiz] Allergy (Verified 05/30/18 19:24) Anaphylaxis bacitracin [From Neosporin ([id number]-[id number])] Allergy (Verified 05/30/18 19:24) Swelling bacitracin zinc [From Neosporin (ike-ogq-prngd)] Allergy (Verified 05/30/18 19:24) Swelling ketorolac [From Toradol] Allergy (Verified 05/30/18 19:24) Other latex Allergy (Verified 05/30/18 19:24) Rash neomycin sulfate [From Neosporin ([id number])] Allergy (Verified 05/30/18 19:24) Swelling polymyxin B [From Neosporin ([id number]-[id number])] Allergy (Verified 05/30/18 19:24) Swelling prednisone Allergy (Verified 05/30/18 19:24) Anaphylaxis EXCEDRIN Allergy (Uncoded 02/09/18 09:03) Anaphylaxis Medications to take at Discharge Levothyroxine [Synthroid] 150 mcg PO DAILY 02/04/16 Vit No.130/Iron/FA [ Vitamins] 1 each PO DAILY 02/27/17 Kelp 150 mcg PO DAILY 02/09/18 Levothyroxine [Synthroid] 88 mcg PO DAILY@0600 #30 tab 05/31/18 Oxycodone [Oxyir] 1 - 2 tab PO Q4H PRN PRN 3 Days #28 tablet 05/31/18 The following prescriptions were given: Oxycodone [Oxyir] 1 - 2 tab PO Q4H PRN PRN 3 Days #28 tablet PRN Reason: Mod-Severe Pain (4-1010) Levothyroxine [Synthroid] 88 mcg PO DAILY@0600 #30 tab Follow-Up: Call to make an appointment with your doctor for an incision check in 1-2 weeks. You will also need a 6 week post- follow up appointment. Test results from this visit will be discussed in further detail at your follow-up appointment, if applicable. Please Follow Up With: Diana Andrade MD When: 1-2 [facility] Primary Care Physician: Kevin Stauffer MD [Primary Care Provider] -
--- NOTE | 2018-05-31 19:20 | DCINST_ITS ---
Discharge Diet: No Restrictions Discharge Activity: Return to Normal Activity, May Not Drive, May not drive while taking narcotic pain medications., May Shower May resume sexual activity in: 6 weeks Lifting Restrictions: 10 lb Call your doctor if your incision/area has: Continuous Slow Oozing, Sudden Increased Bleeding, Increased Pain/ Swelling, Increased Redness, Foul Smelling Discharge Call your doctor if you observe: Fever of 101 or Higher, Inability to urinate, Inability to have a bowel movement, Using more than one pad per hour, Shortness of breath, Chest pain, Calf discomfort, Uncontrolled pain Suture Line Care: Avoid Pulling/Pushing Remove Dressing in (days):: 2 Cleanse incision/area with: Soap & Water Additional Instructions: If you experience any of the following, contact your healthcare provider. * Bleeding that soaks a pad every hour for 2 hours * Fever 100.4 or higher * Unrelieved incision or abdominal pain * Swelling, redness, discharge or bleeding from your incision or episiotomy site * Your incision begins to separate * Problems urinating (including inability to urinate or burning while urinating) . * Visual changes * Severe headache * Flu-like symptoms * Pain or redness in one of both of your breasts * Pain, warmth, tenderness or swelling in your legs, especially the calf area * Frequent nausea and vomiting * Symptoms of depression or anxiety If you experience any of the following, call 911 or go to the nearest Emergency Room. * Chest pain * Problems breathing * Seizure activity * Partial or complete paralysis of a body part, slurred speech, weakness or drooping of the face, or a sudden inability to walk or hold your balance Allergies/Adverse Reactions: Allergies azithromycin [From Zithromax Z-Ruiz] Allergy (Verified 05/30/18 19:24) Anaphylaxis bacitracin [From Neosporin (ers-eqv-onalk)] Allergy (Verified 05/30/18 19:24) Swelling bacitracin zinc [From Neosporin ([id number]-ogd-bcxwa)] Allergy (Verified 05/30/18 19: 24) Swelling ketorolac [From Toradol] Allergy (Verified 05/30/18 19:24) Other latex Allergy (Verified 05/30/18 19:24) Rash neomycin sulfate [From Neosporin (vsk-nfw-biatb)] Allergy (Verified 05/30/18 19: 24) Swelling polymyxin B [From Neosporin (bwa-fbo-nvhyc)] Allergy (Verified 05/30/18 19:24) Swelling prednisone Allergy (Verified 05/30/18 19:24) Anaphylaxis EXCEDRIN Allergy (Uncoded 02/09/18 09:03) Anaphylaxis Medications to take at Discharge Levothyroxine [Synthroid] 150 mcg PO DAILY 02/04/16 Vit No.130/Iron/FA [ Vitamins] 1 each PO DAILY 02/27/17 Kelp 150 mcg PO DAILY 02/09/18 Levothyroxine [Synthroid] 88 mcg PO DAILY@0600 #30 tab 05/31/18 Oxycodone [Oxyir] 1 - 2 tab PO Q4H PRN PRN 3 Days #28 tablet 05/31/18 The following prescriptions were given: Oxycodone [Oxyir] 1 - 2 tab PO Q4H PRN PRN 3 Days #28 tablet PRN Reason: Mod-Severe Pain (4-08/01) Levothyroxine [Synthroid] 88 mcg PO DAILY@0600 #30 tab Follow-Up: Call to make an appointment with your doctor for an incision check in 1-2 weeks. You will also need a 6 week post- follow up appointment. Test results from this visit will be discussed in further detail at your follow- up appointment, if applicable. Please Follow Up With: Diana Andrade MD When: 1-2 [facility] Primary Care Physician: Kevin Stauffer MD [Primary Care Provider] -
--- NOTE | 2018-05-31 19:25 | PN_ITS ---
Progress Note LABOR PROGRESS NOTE Jaquelin complains of left sided body pain, worsened with contractions. She is asking about a section. AVSS GEN - Appears uncomfortable, AAO x 3 FHR 135, moderate variability, + accelerations, no decelerations TOCO 5/10 min SVE 8/80/-1, some caput present and u/l cervical edema A/P: 23yo G1 @ 39 1/7wga in labor on pitocin, Cat I FHR -IUPC placed by RN - if contractions inadequate will increase pitocin further -Recommend continue in labor. Reviewed with patient section as an alternative and will proceed if desired. risks reviewed including pain , bleeding, infection, nerve injury, hemorrhage possibly requiring further surgery including hysterectomy, bowel injury, bladder injury, ureteral injury, VTE. Patinet declines at this time. -Repeat exam in 1.5 hours and if unchanged will plan to proceed with section. -Anesthesiology consultation for further pain management
[2018-05-31] MEDS: Cefazolin 1 GM/50 ML BAG IV (22:35)
[2018-06-01] VITALS (13 sets, daily range): BP systolic 101–130; BP diastolic 52–74; PULSE 88–111; RESP 16–20; TEMP 36.8–37; O2SAT 96–99
[2018-06-01] MEDS: Lactated Ringers 1,000 ML 100 ML IV (01:19)
[2018-06-01] MEDS: Acetaminophen 325 MG Tablet PO ×4 (01:31→22:26)
--- NOTE | 2018-06-01 01:39 | NURSING ---
0030-resting sound did not awaken
--- NOTE | 2018-06-01 01:56 | NURSING ---
0130-awake d/t baby spitting, states her pain is 5-6/10 on ps. medicated with tylenol.
[2018-06-01] MEDS: DiphenhydrAMINE 25 MG Capsule PO (04:13)
[2018-06-01] MEDS: Cefazolin 1 GM/50 ML BAG IV (06:33)
[2018-06-01] MEDS: Levothyroxine 88 MCG Tablet PO (06:38)
[2018-06-01 07:05] LABS: Hematocrit 27.6 % (37-47); Hemoglobin 9.1 g/dl (12.0-15.0); Mean Corpuscular Hgb 26.2 pg (27.0-32.0); Mean Corpuscular Volume 79.5 fL (81-99); Mean Platelet Vol. 10.6 fl (6.2-12.0); Platelet Count 231 K/mm3 (150-450); RBC Distribution Width CV 15.5 % (11.6-14.6); RBC Distribution Width SD 42.5 fl (35.1-43.9); Red Blood Count 3.47 M/mm3 (4.2-5.4); White Blood Count 17.9 K/mm3 (4.4-11.0)
[2018-06-01 07:06] LABS: Scan Indicated on CBC? Y/N NO
--- NOTE | 2018-06-01 07:10 | PCM.PN.OB ---
Patient Problems: Active and Suspected Problems 39 weeks gestation of (Acute) Arrest of dilation, delivered, current hospitalization (Acute) delivery delivered (Acute) Subjective: She is sore this morning. Not yet out of bed. is nursing well. Denies heavy lochia. Objective: avss - Physical Exam General: Alert, Oriented x3, Cooperative, No apparent distress HEENT: Atraumatic, Normocephalic Lungs: Clear to auscultation, Normal air movement Cardiovascular: Regular rate, Regular Rhythm, Normal S1, Normal S2 Abdomen: Bowel Sounds Present, Soft, Non Tender, Non-Distended, - - Fundus firm and nontender, lochia scant - incisional dressing c/d/i Extremities: No edema, No Calf Tenderness Neurological: Neuro grossly intact Psych/Mental Status: Normal Affect, Appropriate, Alert and oriented to time, place, person, mood and affect Vital Signs Temp Pulse Resp BP Pulse Ox 98.4 F 104 H 16 117/67 97 06/01/18 12:00 06/01/18 12:00 06/01/18 12:00 06/01/18 12:00 06/01/18 12:00 Oxygen Delivery Method Room Air Weight: 79.832 kg Body Mass Index (BMI) 27.6 Intake and Output for Last 24 Hours 05/30/18 05/31/18 06/01/18 23:59 23:59 23:59 Intake Total 9058.5 / 9058.5 2294 / 2294 Output Total 800 / 800 5950 / 5950 1700 / 1700 Balance -800 / -800 3108.5 / 3108.5 594 / 594 Laboratory Tests Past 24 Hrs 06/01/18 06:40 WBC 17.9 H RBC 3.47 L Hgb 9.1 L Hct 27.6 L MCV 79.5 L MCH 26.2 L MCHC 33.0 RDW 15.5 H RDW Differential 42.5 Plt Count 231 MPV 10.6 Medical Necessity - Tobacco Use Smoking Status: Former smoker Assessment/Plan All Active Problems 39 weeks gestation of (Acute) Arrest of dilation, delivered, current hospitalization (Acute) delivery delivered (Acute) Confusion (Acute) Acute respiratory failure (Resolved) 23yo POD#1 s/p PLTCS doing well. -Routine postop care -d/c peterson -Regular diet
[2018-06-01] MEDS: oxyCODONE 5 MG Tablet PO ×3 (14:22→23:20)
[2018-06-01] MEDS: Senna/Docusate Sodium 1 Tablet PO (18:48)
[2018-06-02 02:00] VITALS: BP 119/69; PULSE 98; RESP 16; TEMP 37.1
[2018-06-02] MEDS: oxyCODONE 5 MG Tablet PO ×4 (05:33→22:40)
[2018-06-02] MEDS: Levothyroxine 88 MCG Tablet PO (05:34)
--- NOTE | 2018-06-02 07:52 | PCM.PN.OB ---
Patient Problems: Active and Suspected Problems 39 weeks gestation of (Acute) Arrest of dilation, delivered, current hospitalization (Acute) delivery delivered (Acute) Subjective: POD#2 primary C/S after labor, FTP Doing ok. Less sore this am. Planning to stay until POD#4 at this point. - Physical Exam General: Alert, Oriented x3, Cooperative, No apparent distress HEENT: Atraumatic Neck: Supple Abdomen: Soft - fundus firm and tender c/w postop status, at approx umbilicus Skin: Incision - mepilex dressing dry and intact. Psych/Mental Status: Normal Affect Vital Signs Temp Pulse Resp BP Pulse Ox 98.8 F 98 16 119/69 97 06/02/18 02:00 06/02/18 02:00 06/02/18 02:00 06/02/18 02:00 06/01/18 16:15 Oxygen Delivery Method Room Air Weight: 79.832 kg Body Mass Index (BMI) 27.6 Intake and Output for Last 24 Hours 05/31/18 06/01/18 06/02/18 23:59 23:59 23:59 Intake Total 9058.5 / 9058.5 2294 / 2294 Output Total 5950 / 5950 6500 / 6500 Balance 3108.5 / 3108.5 -4206 / -4206 Medical Necessity - Tobacco Use Smoking Status: Former smoker Assessment/Plan All Active Problems 39 weeks gestation of (Acute) Arrest of dilation, delivered, current hospitalization (Acute) delivery delivered (Acute) Confusion (Acute) Acute respiratory failure (Resolved) POD#2 Primary C/S for CPD, FTP Stable postop . Continue care. Assist with nursing, care.
[2018-06-02 09:33] VITALS: BP 115/76; PULSE 93; RESP 16; TEMP 37.6
[2018-06-02] MEDS: Acetaminophen 325 MG Tablet PO ×2 (10:27→20:09)
[2018-06-02] MEDS: Prenatal Vits Tablet 1 TABLET PO (11:44)
[2018-06-02 14:30] VITALS: BP 122/75; PULSE 88; RESP 16; TEMP 36.6
[2018-06-02] MEDS: Senna/Docusate Sodium 1 Tablet PO (17:31)
[2018-06-02 20:00] VITALS: BP 122/82; PULSE 94; RESP 16; TEMP 37.5; O2SAT 98
[2018-06-03 03:35] VITALS: BP 116/72; PULSE 84; RESP 16; TEMP 37.3; O2SAT 96
[2018-06-03] MEDS: oxyCODONE 5 MG Tablet PO ×4 (05:45→20:51)
[2018-06-03] MEDS: Levothyroxine 88 MCG Tablet PO (06:04)
--- NOTE | 2018-06-03 08:37 | PCM.PN.OB ---
Patient Problems: Active and Suspected Problems 39 weeks gestation of (Acute) Arrest of dilation, delivered, current hospitalization (Acute) delivery delivered (Acute) Subjective: POD#3 Wants to stay. States incision is still hurting. Likes abdominal binder. - Physical Exam General: Alert, Oriented x3, Cooperative, No apparent distress HEENT: Atraumatic Neck: Supple Abdomen: Soft - Fundus firm and tender c/w postop status. Skin: Incision - Mepilex dry, intact. Surrounding skin w/o irritation, erythema. (c/o itchiness there) Neurological: Cranial nerves II-XII grossly intact Psych/Mental Status: Normal Affect Vital Signs Temp Pulse Resp BP Pulse Ox 99.2 F H 84 16 116/72 96 06/03/18 03:35 06/03/18 03:35 06/03/18 03:35 06/03/18 03:35 06/03/18 03:35 Oxygen Delivery Method Room Air Weight: 79.832 kg Body Mass Index (BMI) 27.6 Intake and Output for Last 24 Hours 06/01/18 06/02/18 06/03/18 23:59 23:59 23:59 Intake Total 2294 / 2294 Output Total 6500 / 6500 Balance -4206 / -4206 Medical Necessity - Tobacco Use Smoking Status: Former smoker Assessment/Plan All Active Problems 39 weeks gestation of (Acute) Arrest of dilation, delivered, current hospitalization (Acute) delivery delivered (Acute) Confusion (Acute) Acute respiratory failure (Resolved) POD#3 Primary C/S for CPD, FTP Stable postop . wants to stay. Continue care.
[2018-06-03 09:14] VITALS: BP 116/70; PULSE 87; RESP 20; TEMP 37.3; O2SAT 96
[2018-06-03] MEDS: Senna/Docusate Sodium 1 Tablet PO (10:28)
[2018-06-03] MEDS: Acetaminophen 325 MG Tablet PO ×2 (10:30→19:59)
[2018-06-03] MEDS: Prenatal Vits Tablet 1 TABLET PO (12:18)
[2018-06-03 14:00] VITALS: BP 111/75; PULSE 80; TEMP 37.4; O2SAT 97
[2018-06-03 20:00] VITALS: BP 131/71; PULSE 91; RESP 16; TEMP 37.4; O2SAT 98
[2018-06-04] MEDS: Acetaminophen 325 MG Tablet PO (00:11)
[2018-06-04 03:10] VITALS: BP 123/80; PULSE 80; RESP 16; TEMP 36.9; O2SAT 97
[2018-06-04] MEDS: oxyCODONE 5 MG Tablet PO ×2 (03:47→08:57)
[2018-06-04] MEDS: Levothyroxine 88 MCG Tablet PO (05:51)
--- NOTE | 2018-06-04 08:47 | PCM.PN.OB ---
Patient Problems: Active and Suspected Problems 39 weeks gestation of (Acute) Arrest of dilation, delivered, current hospitalization (Acute) delivery delivered (Acute) Subjective: POD#4 C/S Ready to go home today. No concerns voiced. Objective: Holding baby and eating breakfast. - Physical Exam General: Alert, Oriented x3, Cooperative, No apparent distress HEENT: Atraumatic Neck: Supple Abdomen: Soft - Fundus inferior to umblicus, Tender c/w postop status. Skin: Incision - CDI. Mepilex dressing in place. Neurological: Cranial nerves II-XII grossly intact Psych/Mental Status: Normal Affect Vital Signs Temp Pulse Resp BP Pulse Ox 98.5 F 80 16 123/80 H 97 06/04/18 03:10 06/04/18 03:10 06/04/18 03:10 06/04/18 03:10 06/04/18 03:10 Oxygen Delivery Method Room Air Weight: 79.832 kg Body Mass Index (BMI) 27.6 Medical Necessity - Tobacco Use Smoking Status: Former smoker Assessment/Plan All Active Problems 39 weeks gestation of (Acute) Arrest of dilation, delivered, current hospitalization (Acute) delivery delivered (Acute) Confusion (Acute) Acute respiratory failure (Resolved) POD#4 Primary C/S for CPD, FTP Stable postop . Plans to go home today.
--- NOTE | 2018-06-04 08:51 | PCM.DC.SUM ---
Discharge Date and Diagnosis - Problem List Patient Problems: Active and Suspected Problems 39 weeks gestation of (Acute) Arrest of dilation, delivered, current hospitalization (Acute) delivery delivered (Acute) Date of Admission: 04/29/15 - 39 wk Date of Discharge: 06/04/18 - C/S and Bilateral tubal occlusion - Primary Discharge Diagnosis Active and Suspected Problems 39 weeks gestation of (Acute) Arrest of dilation, delivered, current hospitalization (Acute) delivery delivered (Acute) - Secondary Discharge Diagnosis Chronic Problems Migraine (Chronic) Mild intermittent asthma (Chronic) Hospital Course and Treatment Operations: - - C section for arrest of dilation. Bilateral tubal occlusion. Summary of Care Provided: The patient is a 23 year old F presents 39-1/7 weeks gestational age admitted in labor. She had amniotomy and was augmented with Pitocin and progressed to 8- 9 cm however had been 8-9 cm for more than 6 hours on Pitocin with inadequate contractions. Primary C section and bilateral tubal occlusion performed. Preoperative Hgb 11.4 g/dl Acute blood loss anemia then and postop Hgb at 9.1 g/dl. Postoperative course uneventful. Elected to stay until POD#4 . Discharge home today. RTO in 2 wk for postop incision check. Discharge Diet: No Restrictions Discharge Activity: Return to Normal Activity, May Not Drive, May not drive while taking narcotic pain medications., May Shower May resume sexual activity in: 6 weeks Call your doctor if your incision/area has: Continuous Slow Oozing, Sudden Increased Bleeding, Increased Pain/ Swelling, Increased Redness, Foul Smelling Discharge Call your doctor if you observe: Fever of 101 or Higher, Inability to urinate, Inability to have a bowel movement, Using more than one pad per hour, Shortness of breath, Chest pain, Calf discomfort, Uncontrolled pain Suture Line Care: Avoid Pulling/Pushing Remove Dressing in (days):: 2 Cleanse incision/area with: Soap & Water Home Medications: Medications to take at Discharge Levothyroxine [Synthroid] 150 mcg PO DAILY 02/04/16 Vit No.130/Iron/FA [ Vitamins] 1 each PO DAILY 02/27/17 Kelp 150 mcg PO DAILY 02/09/18 Levothyroxine [Synthroid] 88 mcg PO DAILY@0600 #30 tab 05/31/18 Oxycodone [Oxyir] 1 - 2 tab PO Q4H PRN PRN 3 Days #28 tablet 05/31/18 Following Prescrptions Were Given to Patient: Oxycodone [Oxyir] 1 - 2 tab PO Q4H PRN PRN 3 Days #28 tablet PRN Reason: Mod-Severe Pain (-08/01) Levothyroxine [Synthroid] 88 mcg PO DAILY@0600 #30 tab Primary Care Physician: Kevin Stauffer MD [Primary Care Provider] - Please Follow Up With: Diana Andrade MD When: [facility]2 [facility] Medical Necessity - Tobacco Use Smoking Status: Former smoker Meaningful Use Info Meaningful Use Diagnoses (Choose all that apply): None applicable
[2018-06-04] MEDS: Senna/Docusate Sodium 1 Tablet PO (08:57)
[2018-06-04 09:00] VITALS: BP 119/78; PULSE 101; RESP 185; TEMP 36.8
[2018-06-05 12:58] LABS: Pathology Specimen OB SEE PATHOLOGY REPORT
== END 2018-06-04 11:45 | disposition home or self-care (01) | DRG 765 ==
PROVIDERS: Obstetrics & Gynecology; Admitting Provider Obstetrics & Gynecology; Family Provider Family Medicine; PCP Family Medicine; Visit Provider Obstetrics & Gynecology
DX: O62.1 Secondary uterine inertia (principal); D62 Acute posthemorrhagic anemia; O13.3 Gestational [pregnancy-induced] hypertension without significant proteinuria, third trimester; O69.81X0 Labor and delivery complicated by cord around neck, without compression, not applicable or unspecified; O90.81 Anemia of the puerperium; Z87.891 Personal history of nicotine dependence; O99.52 Diseases of the respiratory system complicating childbirth; J45.20 Mild intermittent asthma, uncomplicated; O99.283 Endocrine, nutritional and metabolic diseases complicating pregnancy, third trimester; E05.00 Thyrotoxicosis with diffuse goiter without thyrotoxic crisis or storm; Z3A.39 39 weeks gestation of pregnancy; Z37.0 Single live birth; Z30.2 Encounter for sterilization
CPT/HCPCS: 59025; 59050; 85027; 86850; 86900; 88302; 99218; J7120; A4216; G0378; J2405; J3490

== ENCOUNTER 2018-12-09 06:42 | Emergency (ER) | payer BC, OTHER, SELFPAY ==
[2018-12-09 06:43] VITALS: BP 112/73; PULSE 90; RESP 18; TEMP 36.7; O2SAT 100; BMI 22.9
--- NOTE | 2018-12-09 07:08 | CT_ITS ---
STUDY: CT ABDOMEN AND PELVIS WITHOUT CONTRAST REASON FOR EXAM: Female, 23 years old. Left lower abdominal pain beginning today. Hematuria. RADIATION DOSAGE (If Supplied By Facility): CTDIvol = ( 7.37 ) mGy, DLP = ( 360.69 ) mGycm TECHNIQUE: Transaxial images were obtained from the dome of the diaphragm to the symphysis pubis without oral contrast, and without intravenous contrast. Sagittal and coronal images were reconstructed. Individualized dose optimization techniques were used for this CT. COMPARISON: CT of the abdomen and pelvis, February 27, 2017. FINDINGS: The visualized lung bases are unremarkable. The visualized portions of the heart are within normal limits. Normal liver. Normal gallbladder and extrahepatic biliary system. There are multiple benign calcified granulomata of the spleen. Normal pancreas. Normal bilateral adrenal glands. Normal right kidney. Normal left kidney. Normal visualized ureters. Normal visualized stomach. Normal small intestine. Normal colon. The appendix is visualized and appears normal. Normal abdominal aorta. Normal inferior vena cava. There is nonspecific subcentimeter lymphadenopathy at the level of the renal phillip which appears unchanged. Normal urinary bladder. Normal uterus and ovaries. There is no pelvic lymphadenopathy. No free air or free fluid is seen within the peritoneal cavity. Normal abdominal wall. Normal osseous structures. CT/Abdomen/Pelvis without Cont IMPRESSION: No acute intra-abdominal or pelvic abnormality or major interval change. Specifically, there is no evidence of renal, ureteral or urinary bladder abnormality. Electronically Signed: William Bradford DO at 8:38 EST Tel [phone], Service support ,
--- NOTE | 2018-12-09 07:09 | ED.VISSUMM ---
- ER Visit Summary Date of Service: 12/09/18 Chief Complaint: Left flank pain History of Present Illness: The patient is a 23 F presenting with left flank pain. Patient states pain woke her from sleep at 4 AM. She has pain in the left back radiating to the left lower abdomen. She has a history of previous kidney stones. She has had hematuria. She has nausea with no vomiting. Denies other complaints. Physical Examination: Vitals are stable. Patient is afebrile. Alert no acute distress. HEENT exam is unremarkable. Neck is supple. Lungs are clear and equal bilaterally. Heart is regular rate and rhythm. Abdomen is soft mild left lower quadrant tenderness with no rebound or guarding Back left CVA tenderness Extremities are unremarkable. Skin is warm and dry. Remainder of exam is unremarkable. Emergency Department Course and Treatment: Patient was given morphine, Zofran IV. HCG negative. Urinalysis shows 0-5 white blood cells, over 100 red blood cells. She states she did start her period today. CT abdomen pelvis shows no acute process. Patient was given Toradol IV. She has a listed allergy to Toradol but states that her reaction is that it has made her mean in the past. Patient continued to have pain. Pelvic ultrasound was obtained and shows no ovarian masses or sonographic evidence of ovarian torsion. Slight fluid within the endocervical canal. On reevaluation, patient is resting comfortably. She is given a prescription for Percocet. 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 Advised return to ED if worsening complaints. Disposition: Discharge home Impression: Left flank pain This note was generated with [employer] dictation software. It may contain incorrect words, spelling, and punctuation that were not noted in review of the chart prior to signing ED Disposition - Plan for ED Patient: Referrals: Kevin Stauffer MD [Primary Care Provider] -
[2018-12-09] MEDS: Ondansetron 4 MG/2 ML Vial IV (07:21)
[2018-12-09] MEDS: Morphine 4 MG/ML Syringe IV ×2 (07:21→09:02)
[2018-12-09 07:28] LABS: Mucous, Urine 0 SEEN /hpf (<or=2+); Squamous Epithelial Cells - UA 0 SEEN /hpf (5-10)
[2018-12-09 07:29] LABS: Color, Urine Red (Yellow); Glucose, Dipstick Normal (Normal); Ketone-Dipstick 5 mg/dl (Negative); Leukocyte Esterase-Dipstick 25 /ul (Negative); Nitrite-Dipstick Negative (Negative); Occult Blood-Urine 250 /ul (Negative); Protein-Dipstick 100 mg/dl (Negative); Specific Gravity, Urine 1.025 (1.002-1.030); Urine Bilirubin Dipstick Negative (Negative); Urine Clarity Turbid (Clear); Urine Urobilinogen Normal (Normal)
[2018-12-09 07:36] LABS: Red Blood Cells-Urine > 100 SEEN /hpf (0-5)
[2018-12-09 07:39] LABS: Bacteria 1+ /hpf (None Seen); White Blood Cells 0-5 SEEN /hpf (0-5)
[2018-12-09 07:40] LABS: Pregnancy, Serum, hCG Quali. NEGATIVE Negative (0-9 Nonpreg)
[2018-12-09 08:57] VITALS: BP 134/62; PULSE 71; RESP 16; O2SAT 98
--- NOTE | 2018-12-09 09:00 | US_ITS ---
STUDY: ULTRASOUND TRANSVAGINAL CLINICAL: Female, 23 years old. Left-sided pelvic pain for one day TECHNIQUE: Transvaginal COMPARISON: CT from earlier today FINDINGS: Normal uterine size measuring 9.2 x 4.5 x 2.8 cm in maximal craniocaudal dimension. There are no myometrial masses. Normal endometrial thickness measuring 9 mm. There are no endometrial masses, and there is slight amount of fluid in the endocervical canal. Normal uterine cervix. Normal right ovary, measuring 2.7 x 2.3 x 1.9 cm. There are multiple follicles without a dominant cyst. Normal left ovary, measuring 2.8 x 2.8 x 1.5 cm. There are multiple follicles without a dominant cyst. Minimal amount of free fluid in the dependent portion of the pelvis. US/Transvaginal Non- IMPRESSION: 1. No ovarian masses or sonographic evidence of ovarian torsion. 2. Slight fluid within the endocervical canal. Electronically Signed: Kevin Cabrales MD at 11:20 EST , Service support ,
[2018-12-09] MEDS: Ketorolac 30 MG/ML Syringe IV (09:03)
[2018-12-09 10:00] VITALS: RESP 16
--- NOTE | 2018-12-09 11:52 | ED.DEP ---
ED Disposition - Plan for ED Patient: Instructions: ED Abdominal Pain Unkn Cause Prescriptions: Oxycodone HCl/Acetaminophen [Percocet 5/325] 1 tablet PO Q6H PRN PRN 3 Days #12 tablet PRN Reason: Pain Referrals: Kevin Stauffer MD [Primary Care Provider] - Diana Andrade MD [STAFF PHYSICIAN] -
[2018-12-09] MEDS: oxyCODONE 5 MG Tablet PO (12:06)
== END 2018-12-09 12:14 | disposition home or self-care (01) ==
PROVIDERS: Emergency Provider Emergency Medicine; Family Provider Family Medicine; PCP Family Medicine
DX: R10.32 Left lower quadrant pain (principal); Z87.442 Personal history of urinary calculi
CPT/HCPCS: 74176; 76830; 81001; 84703; 93976; 96374; 96375; 96376; 99283; J7030; A4216; J2405

== ENCOUNTER 2019-02-21 10:04 | Emergency (ER) | payer BC, OTHER, SELFPAY ==
[2019-02-21 10:06] VITALS: BP 118/75; PULSE 83; RESP 12; TEMP 36.4; O2SAT 100; BMI 23.7
[2019-02-21 10:12] VITALS: BP 116/73; PULSE 77; RESP 18; O2SAT 100
--- NOTE | 2019-02-21 10:13 | EKG12_ITS ---
Test Reason : CP Blood Pressure : / mmHG Vent. Rate : 081 BPM Atrial Rate : 081 BPM P-R Int : 168 ms QRS Dur : 094 ms QT Int : 382 ms P-R-T Axes : 035 044 -24 degrees QTc Int : 443 ms Normal sinus rhythm ST & T wave abnormality, consider inferior ischemia ST & T wave abnormality, consider anterior ischemia Abnormal ECG Confirmed by ELEUTERIO CHRISTY MD ([id number]), society editor CAMILA FLETCHER ([id number]) on 02/26/2019 3:45:57 PM Referred By: DIANA Confirmed By:ELEUTERIO CHRISTY MD
--- NOTE | 2019-02-21 12:04 | ED.RN ---
PT SPOUSE BEEN RUDE SINCE PT'S ARRIVAL. PT HAD JUST ARRIVED BY EMS, PT SPOUSE COMES BACK TO PTS ROOM AND STATES THAT HE HAS BEEN WAITING FOR 5 MIN AND KNOW ONE INFORMED HIM THE PT WAS THERE. PT SPOUSE WAS LOUD STATING THIS HOSPITAL SUCKS. PT SPOUSE WAS INFORMED THAT THE PT HAD JUST ARRIVED BY EMS, SKIP LLANES STATED THIS TO PT SPOUSE. PT SPOUSE CONTINUES TO BE DEMANDING AND RUDE. APOLOGIZES HAD BEEN MADE REGARDING DELAY OF MD. SPOUSE INFORMED THAT PT IS ON THE MONITOR AND EKG HAD BEEN OBTAINED.
--- NOTE | 2019-02-21 12:20 | ED.VISSUMM ---
- ER Visit Summary Date of Service: 02/21/19 Chief Complaint: Chest pain History of Present Illness: The patient is a 23 F of cardiac arrhythmia primarily a tachycardia. She also has anemia and had a prior thyroidectomy and is on thyroid medication. She is never had any coronary disease. Sees Dr. Angel Gonsalves of cardiology. Is undergoing a further evaluation of the electrolyte activity of her heart and he is determining a plan to treat that. He is expecting to place her on a beta-adal. Physical Examination: Young female no acute distress. Vital signs are stable. He is afebrile. Her pulse ox is 100% on room air. No signs of hypoxia. H EENT exam is unremarkable. Neck: No lymphadenopathy. Lungs clear to auscultation bilaterally. Heart regular rhythm no murmur. Rate approximately 80. Chest wall reproducible chest wall pain along the left lateral sternum consistent with a costochondritis. No ecchymosis or bruising. No subcu air crepitus. No history of trauma. Abdomen soft nontender. Normal bowel sounds no peritoneal signs. Patient moving all 4 extremities. She is equal symmetrical radial pulses. Calves are nontender without edema or cords. Neurologically she is awake alert with no focal motor deficits. Test Results: EKG shows a sinus rhythm rate of [address]-T wave changes anterolaterally. There is no old EKG available for comparison. Patient requested a cardiac work-up be done. A portable chest x-ray 1 view read by myself and radiologist shows no acute abnormality. White count was 7. Hemoglobin of 12. Letter lites unremarkable potassium 3.4. Normal creatinine and gap. Troponin normal. Patient has had chest pain for hours I do not think she needs a repeat troponin. Emergency Department Course and Treatment: I spoke to the patient's director business integration Dr. Angel Gonsalves. He has her set up for further outpatient evaluation for this rhythm issue. Clinically I think this pain is noncardiac and chest wall pain. Instructed to ice it and use Motrin for pain. Patient was given IV Toradol in the emergency department for pain. On repeat exam at 1341 she is doing well. Treatment Plan: Ice and Motrin. Follow-up with a director business integration. Disposition: Discharge Impression: Acute chest wall pain This note was generated with [employer] dictation software. It may contain incorrect words, spelling, and punctuation that were not noted in review of the chart prior to signing ED Disposition - Plan for ED Patient: Disposition: Home or Assisted Living Referrals: Vince Leonard MD [STAFF PHYSICIAN] - As soon as possible Additional Instructions: Chest wall for pain. Motrin for pain and inflammation. Follow-up with your director business integration.
--- NOTE | 2019-02-21 12:23 | ED.DCSUM_ITS ---
- ER Visit Summary Date of Service: 02/21/19 Chief Complaint: Chest pain History of Present Illness: The patient is a 23 F of cardiac arrhythmia primarily a tachycardia. She also has anemia and had a prior thyroidectomy and is on thyroid medication. She is never had any coronary disease. Sees Dr. Angel Gonsalves of cardiology. Is undergoing a further evaluation of the electrolyte activity of her heart and he is determining a plan to treat that. He is expecting to place her on a beta-adal. Physical Examination: Young female no acute distress. Vital signs are stable. He is afebrile. Her pulse ox is 100% on room air. No signs of hypoxia. H EENT exam is unremarkable. Neck: No lymphadenopathy. Lungs clear to auscultation bilaterally. Heart regular rhythm no murmur. Rate approximately 80. Chest wall reproducible chest wall pain along the left lateral sternum consistent with a costochondritis. No ecchymosis or bruising. No subcu air crepitus. No history of trauma. Abdomen soft nontender. Normal bowel sounds no peritoneal signs. Patient moving all 4 extremities. She is equal symmetrical radial pulses. Calves are nontender without edema or cords. Neurologically she is awake alert with no focal motor deficits. Test Results: EKG shows a sinus rhythm rate of [address]-T wave changes anterolaterally. There is no old EKG available for comparison. Patient requested a cardiac work-up be done. A portable chest x-ray 1 view read by myself and radiologist shows no acute abnormality. White count was 7. Hemoglobin of 12. Letter lites unremarkable potassium 3.4. Normal creatinine and gap. Troponin normal. Patient has had chest pain for hours I do not think she needs a repeat troponin. Emergency Department Course and Treatment: I spoke to the patient's miner operator Dr. Angel Gonsalves. He has her set up for further outpatient evaluation for this rhythm issue. Clinically I think this pain is noncardiac and chest wall pain. Instructed to ice it and use Motrin for pain. Patient was given IV Toradol in the emergency department for pain. On repeat exam at 1341 she is doing well. Treatment Plan: Ice and Motrin. Follow-up with a miner operator. Disposition: Discharge Impression: Acute chest wall pain This note was generated with [employer] dictation software. It may contain incorrect words, spelling, and punctuation that were not noted in review of the chart prior to signing ED Disposition - Plan for ED Patient: Disposition: Home or Assisted Living Referrals: Vince Leonard MD [STAFF PHYSICIAN] - As soon as possible Additional Instructions: Chest wall for pain. Motrin for pain and inflammation. Follow-up with your miner operator.
[2019-02-21 12:31] VITALS: O2SAT 97
[2019-02-21 12:33] VITALS: PULSE 78; RESP 16
--- NOTE | 2019-02-21 12:38 | RAD_ITS ---
STUDY: X-RAY CHEST REASON FOR EXAM: Female, 23 years old. Chest pain. TECHNIQUE: Single AP portable view of the chest. COMPARISON: Comparison is made with prior study February 09, 2018. FINDINGS: The lungs are clear and expanded. There is no demonstrated pleural abnormality. Normal size heart. Normal mediastinum and phillip. Normal visualized pulmonary arteries. Normal visualized aortic arch and descending thoracic aorta. Normal visualized thoracic spine. Normal visualized ribs, clavicles, and shoulders. There is no demonstrated abnormality of the visualized soft tissue structures of the upper abdomen. RAD/Chest 1 View (Portable) IMPRESSION: Normal x-ray examination of the chest. Electronically Signed: Lonnie Kim, at 12:58 EDT , Service support ,
[2019-02-21] MEDS: Ketorolac 30 MG/ML Syringe IV (12:42)
[2019-02-21 13:02] LABS: Absolute Lymphocyte Count 2.53 X10^3/ul (0.83-4.51); Absolute Neutrophil Count 4.6 X10^3/uL (2.0-7.7); Basophil# 0.02 X10^3/uL; Basophil% 0.3 % (0-1); Eosinophil# 0.03 X10^3/uL; Eosinophils% 0.4 % (0-5); Hematocrit 39.1 % (37-47); Hemoglobin 12.6 g/dl (12.0-15.0); Lymphocyte # 2.53 X10^3/ul (4.0); Lymphocyte % 32.1 % (19-41); Mean Corp Hgb Conc 32.2 g/gl (32-36); Mean Corpuscular Hgb 25.1 pg (27.0-32.0); Mean Platelet Vol. 10.1 fl (6.2-12.0); Monocyte# 0.67 X10^3/uL; Monocyte% 8.5 % (0-10); Neutrophil # 4.63 X10^3/uL (2.7-7.7); Neutrophil % 58.6 % (47-70); Platelet Count 340 K/mm3 (150-450); RBC Distribution Width CV 14.7 % (11.6-14.6); RBC Distribution Width SD 40.6 fl (35.1-43.9); Red Blood Count 5.01 M/mm3 (4.2-5.4); White Blood Count 7.9 K/mm3 (4.4-11.0)
[2019-02-21 13:03] LABS: POSITIVE COUNT NO; POSITIVE DIFFERENTIAL NO; POSITIVE MORPHOLOGY NO
[2019-02-21 13:21] LABS: Anion Gap 7 (5-15); BUN 7 mg/dL (7-18); BUN/Creat Ratio 10.1 RATIO (10-20); Chloride 107 mmol/L (98-107); Creatinine, Serum 0.69 mg/dL (0.55-1.02); EST Glomerular Filtration Rate 109 mL/min (>60); Est Glom Filt Rate - Afr Amer 131 mL/min (>60); Estimated Creatinine Clearance 116.68 ml/min; Glucose 83 mg/dL (74-106); Potassium 3.4 mmol/L (3.5-5.1); Sodium Level 141 mmol/L (136-145)
[2019-02-21 14:07] VITALS: BP 113/72; PULSE 74; RESP 18; O2SAT 98
== END 2019-02-21 14:08 | disposition home or self-care (01) ==
PROVIDERS: Emergency Provider Emergency Medicine; Family Provider Family Medicine; PCP Family Medicine
DX: R07.89 Other chest pain (principal); E03.9 Hypothyroidism, unspecified; Z87.442 Personal history of urinary calculi; Z86.2 Personal history of diseases of the blood and blood-forming organs and certain disorders involving the immune mechanism; Z79.899 Other long term (current) drug therapy
CPT/HCPCS: 71045; 80048; 84484; 85025; 93005; 96374; 99285; A4216

== ENCOUNTER 2019-03-19 09:46 | Emergency (ER) | payer OTHER, SELFPAY ==
[2019-03-19 09:48] VITALS: BP 129/89; PULSE 82; RESP 16; TEMP 36.6; O2SAT 99; BMI 23.2
--- NOTE | 2019-03-19 10:01 | EKG12_ITS ---
Test Reason : CP Blood Pressure : / mmHG Vent. Rate : 087 BPM Atrial Rate : 087 BPM P-R Int : 214 ms QRS Dur : 094 ms QT Int : 386 ms P-R-T Axes : 045 061 -32 degrees QTc Int : 464 ms Poor data quality, interpretation may be adversely affected Sinus rhythm with sinus arrhythmia with 1st degree A-V block ST & T wave abnormality, consider lateral ischemia Prolonged QT Abnormal ECG Confirmed by ROBY CAVANAUGH ([id number]), mapping editor SOILA SORIANO ([id number]) on 03/21/2019 8:39:18 AM Referred By: MANI/ISH Confirmed By:ROBY CAVANAUGH
--- NOTE | 2019-03-19 10:02 | RAD_ITS ---
STUDY: X-RAY CHEST REASON FOR EXAM: Female, 24 years old. Chest discomfort. TECHNIQUE: PA and lateral views of the chest. COMPARISON: Comparison is made with prior examination dated February 21, 2019. FINDINGS: EKG electrodes are seen. The lungs are clear and expanded. There is no demonstrated pleural abnormality. Normal size heart. Normal mediastinum and phillip. Scattered calcified granulomas. Normal visualized pulmonary arteries. Normal visualized aortic arch and descending thoracic aorta. Normal visualized thoracic spine. Normal visualized ribs, clavicles, and shoulders. There is no demonstrated abnormality of the visualized soft tissue structures of the upper abdomen. RAD/Chest PA and Lateral IMPRESSION: Normal x-ray examination of the chest. Electronically Signed: Lonnie Kim, at 10:52 EDT , Service support ,
[2019-03-19] MEDS: Nitroglycerin SL (ED/IMG/CATH) 0.4 MG TABLET SUBLINGUAL (10:08)
[2019-03-19 10:13] LABS: Absolute Lymphocyte Count 2.79 X10^3/ul (0.83-4.51); Absolute Neutrophil Count 3.2 X10^3/uL (2.0-7.7); Basophil# 0.01 X10^3/uL; Basophil% 0.1 % (0-1); Eosinophil# 0.04 X10^3/uL; Eosinophils% 0.6 % (0-5); Hematocrit 40.1 % (37-47); Hemoglobin 13.1 g/dl (12.0-15.0); Lymphocyte # 2.79 X10^3/ul (4.0); Lymphocyte % 41.7 % (19-41); Mean Corp Hgb Conc 32.7 g/gl (32-36); Mean Corpuscular Hgb 25.3 pg (27.0-32.0); Mean Corpuscular Volume 77.4 fL (81-99); Mean Platelet Vol. 10.2 fl (6.2-12.0); Monocyte# 0.67 X10^3/uL; Neutrophil # 3.17 X10^3/uL (2.7-7.7); Neutrophil % 47.5 % (47-70); Platelet Count 392 K/mm3 (150-450); RBC Distribution Width CV 14.4 % (11.6-14.6); RBC Distribution Width SD 40.1 fl (35.1-43.9); Red Blood Count 5.18 M/mm3 (4.2-5.4); White Blood Count 6.7 K/mm3 (4.4-11.0)
[2019-03-19 10:15] LABS: POSITIVE COUNT NO; POSITIVE DIFFERENTIAL NO; POSITIVE MORPHOLOGY NO
[2019-03-19 10:26] LABS: Anion Gap 6 (5-15); BUN 9 mg/dL (7-18); BUN/Creat Ratio 10.5 RATIO (10-20); Chloride 105 mmol/L (98-107); Creatinine, Serum 0.86 mg/dL (0.55-1.02); EST Glomerular Filtration Rate 85 mL/min (>60); Est Glom Filt Rate - Afr Amer 103 mL/min (>60); Glucose 88 mg/dL (74-106); Magnesium 1.9 mg/dL (1.6-2.6); Potassium 3.6 mmol/L (3.5-5.1); Sodium Level 140 mmol/L (136-145)
--- NOTE | 2019-03-19 10:28 | ED.VISSUMM ---
- ER Visit Summary Date of Service: 03/19/19 Chief Complaint: Chest pain History of Present Illness: The patient is a 24 F who states she woke this morning with a pressure in her chest. She has had this before. She is currently seeing Dr. Gonsalves for cardiology. The patient notes that she had a stress test. This was suspicious for right coronary territory ischemia. Noted to have poor augmentation of LV function and prominent inferior dysfunction associated with chest discomfort and ST depression with exercise. Based on this approximate 4 days ago she underwent heart catheterization at [facility] showed the coronary arteries to be clear. She has a history of Graves' disease and is currently on Synthroid. She is also on verapamil. She tells me that there is no clear etiology for the patient's symptomology. She states she has nitroglycerin but was advised by the on-call nurse not to take it as her heart rate was in the 50s. She has a history of what sounds like a tachybradycardia dysrhythmia. I see documentation of SVT. Notes she has an appointment tomorrow with cardiology. Physical Examination: Afebrile vital signs are stable Gen: Well-nourished well-developed Head: Normocephalic atraumatic Eyes: Perrl EOMI ENT: TMs clear no rhinorrhea moist mucous membranes Neck: Supple no lymphadenopathy no JVD nontender CVS: Regular rate rhythm no murmurs normal S1-S2 Respiratory: No distress clear to auscultation bilaterally chest nontender Abdomen: Soft nontender nondistended normal bowel sounds no masses Back: Nontender Extremity: Nontender no edema Skin: Normal color no rash Neuro: alert orientated ?3 CN II-XII intact normal strength sensation reflexes gait cerebellar Psych: Normal affect normal mood Test Results: EKG showed a sinus rhythm first-degree AV block. Heart rate is 87. There are some ST abnormalities laterally. CBC BMP troponin magnesium negative. Chest x-ray negative. Emergency Department Course and Treatment: Patient had no events on the monitor. She is been as low as 54. She is had no evidence of SVT. Patient received nitroglycerin which helped with the pain. She has appointment tomorrow with cardiology. Impression: 1. Chest pain This note was generated with [employer] software. It may contain incorrect words, spelling, and punctuation that were not noted in review of the chart prior to signing ED Disposition - Plan for ED Patient: Disposition: Home or Assisted Living Instructions: ED Chest Pain Atypical Unkn Cause Referrals: Vince Leonard MD [STAFF PHYSICIAN] - Keep Dante appointment
--- NOTE | 2019-03-19 10:32 | ED.DCSUM_ITS ---
- ER Visit Summary Date of Service: 03/19/19 Chief Complaint: Chest pain History of Present Illness: The patient is a 24 F who states she woke this morning with a pressure in her chest. She has had this before. She is currently seeing Dr. Gonsalves for cardiology. The patient notes that she had a stress test. This was suspicious for right coronary territory ischemia. Noted to have poor augmentation of LV function and prominent inferior dysfunction associated with chest discomfort and ST depression with exercise. Based on this approximate 4 days ago she underwent heart catheterization at [facility] showed the coronary arteries to be clear. She has a history of Graves' disease and is currently on Synthroid. She is also on verapamil. She tells me that there is no clear etiology for the patient's symptomology. She states she has nitroglycerin but was advised by the on-call nurse not to take it as her heart rate was in the 50s. She has a history of what sounds like a tachybradycardia dysrhythmia. I see documentation of SVT. Notes she has an appointment tomorrow with cardiology. Physical Examination: Afebrile vital signs are stable Gen: Well-nourished well-developed Head: Normocephalic atraumatic Eyes: Perrl EOMI ENT: TMs clear no rhinorrhea moist mucous membranes Neck: Supple no lymphadenopathy no JVD nontender CVS: Regular rate rhythm no murmurs normal S1-S2 Respiratory: No distress clear to auscultation bilaterally chest nontender Abdomen: Soft nontender nondistended normal bowel sounds no masses Back: Nontender Extremity: Nontender no edema Skin: Normal color no rash Neuro: alert orientated ?3 CN II-XII intact normal strength sensation reflexes gait cerebellar Psych: Normal affect normal mood Test Results: EKG showed a sinus rhythm first-degree AV block. Heart rate is 87. There are some ST abnormalities laterally. CBC BMP troponin magnesium negative. Chest x-ray negative. Emergency Department Course and Treatment: Patient had no events on the monitor. She is been as low as 54. She is had no evidence of SVT. Patient received nitroglycerin which helped with the pain. She has appointment tomorrow with cardiology. Impression: 1. Chest pain This note was generated with [employer] software. It may contain incorrect words, spelling, and punctuation that were not noted in review of the chart prior to signing ED Disposition - Plan for ED Patient: Disposition: Home or Assisted Living Instructions: ED Chest Pain Atypical Unkn Cause Referrals: Vince Leonard MD [STAFF PHYSICIAN] - Keep Dante appointment
[2019-03-19 10:53] VITALS: BP 105/70; PULSE 72; RESP 14; O2SAT 98
[2019-03-19 11:27] VITALS: BP 100/72; PULSE 63; RESP 16; O2SAT 98
[2019-03-19 12:46] VITALS: PULSE 97; RESP 16; RESP 18; O2SAT 97
== END 2019-03-19 12:47 | disposition home or self-care (01) ==
PROVIDERS: Emergency Provider Emergency Medicine; Family Provider Family Medicine; PCP Family Medicine
DX: R07.9 Chest pain, unspecified (principal); E05.00 Thyrotoxicosis with diffuse goiter without thyrotoxic crisis or storm; F32.9 Major depressive disorder, single episode, unspecified; Z79.899 Other long term (current) drug therapy; Z87.891 Personal history of nicotine dependence
CPT/HCPCS: 71046; 80048; 83735; 84484; 85025; 93005; 99284; A4216

== ENCOUNTER 2019-06-08 14:34 | Emergency (ER) | payer OTHER, SELFPAY ==
[2019-06-08 14:35] VITALS: BP 103/55; PULSE 105; RESP 17; TEMP 36.7; O2SAT 99; BMI 23.6
--- NOTE | 2019-06-08 15:10 | CT_ITS ---
STUDY: CT BRAIN WITHOUT CONTRAST REASON FOR EXAM: Female, 24 years old. Left ear pain for 3 weeks RADIATION DOSAGE (If Supplied By Facility): CTDIvol = ( 44.99 ) mGy, DLP = ( 745.49 ) mGycm TECHNIQUE: Transaxial CT imaging of the brain was performed without administration of intravenous contrast material. Individualized dose optimization techniques were used for this CT. COMPARISON: No relevant priors. FINDINGS: Normal soft tissue structures. Normal calvarium. Bilateral tragal piercings are noted. Normal size ventricles and extra-axial spaces for the patient's age. Normal white matter tracts of the cerebral hemispheres. Normal basal ganglia and thalami. Normal brainstem. Normal cerebellum. There is no intracranial hemorrhage. There are no findings of an acute ischemic infarction. Normal visualized paranasal sinuses and mastoid air cells and auditory canals. CT/Brain/Head without Contrast IMPRESSION: 1. Normal unenhanced CT scan of the brain. Electronically Signed: Kevin Cabrales MD (Brooks) at 16:10 EDT , Service support ,
[2019-06-08] MEDS: HYDROcodone Bitartrate/Apap 5/325 Tablet PO (15:18)
[2019-06-08] MEDS: AMOXICILLIN 500 MG CAPSULE PO (15:19)
--- NOTE | 2019-06-08 16:16 | ED.DCSUM_ITS ---
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 She reports she has left ear pain that began approximately 3 weeks ago. Is a sharp pain is 10 on 10 at worst a 10 currently. Is worsened by nothing. She is taken Tylenol, ibuprofen, heating pad without relief. Patient reports that she was seen last week and was told that she had an otitis externa she was placed on Ciprodex which she took twice a day for 7 days. She finished this 3 days ago. She did not get any relief from this. She does report that she is getting clear drainage from her ear. Patient denies any fever or chills. No dental pain. Physical Examination: Vitals: Stable. Afebrile. General: Well-nourished and well-developed. Head: Normocephalic atraumatic. HEENT: Pain with movement of the tragus on the left. However, her external auditory canal is normal. There is no swelling. There is no exudate. Her TM appears normal as well. I do not appreciate any fluid in the canal. She does have mild left mastoid tenderness. There is no lateral or outward displacement of her pinna. Neck: Supple, no lymphadenopathy. No JVD. Nontender. Cardiovascular: Regular rate and rhythm. No murmurs. Respiratory: No respiratory distress. Clear to auscultation bilaterally. Abdominal: Soft, nontender, nondistended, normal bowel sounds. No guarding, rebound, or peritoneal signs. Back: Nontender. Extremities: Nontender, no edema. Skin: Normal color, no rash. Neurologic: Alert and oriented ?3. Cranial nerves II through XII are intact. Normal strength and sensation. Psych: Normal affect. Test Results: CT brain is normal. No mastoiditis. Emergency Department Course and Treatment: The prolonged discussion the patient this time I do not have an explanation for pain. With the clear drainage I question whether or not she may have a perforated eardrum. She was given a dose of amoxicillin and [place] here. Treatment Plan: Patient will be discharged instructions to follow-up with Dr. Munroe in 1 week for another exam. She will be discharged with amoxicillin and [place]. Return to the emergency department for any worsening symptoms. Disposition: To home in improved and stable condition. Impression: 1. Otalgia on the left, uncertain cause. This note was generated with [employer] dictation software. It may contain incorrect words, spelling, and punctuation that were not noted in review of the chart prior to signing ED Disposition - Plan for ED Patient: Disposition: Home or Assisted Living Instructions: EARACHE w/o Infection (Adult) Prescriptions: Amoxicillin 500 mg PO TID #30 tab Prescription Printed Hydrocodone Bitart/Apap 5-325 [[place] 5MG-325MG] 1 tab PO Q4H PRN PRN 2 Days #10 tab PRN Reason: Pain Prescription Printed Referrals: Gerardo Munroe MD [STAFF PHYSICIAN] - 1 Week
[2019-06-08 16:28] VITALS: BP 107/83; PULSE 81; RESP 14; O2SAT 99
== END 2019-06-08 16:31 | disposition home or self-care (01) ==
LOC: ED 16:23
PROVIDERS: Emergency Provider Emergency Medicine; Family Provider Family Medicine; PCP Family Medicine
DX: H92.02 Otalgia, left ear (principal); E03.9 Hypothyroidism, unspecified; Z79.899 Other long term (current) drug therapy
CPT/HCPCS: 70450; 99283

== ENCOUNTER 2019-09-10 16:36 | Emergency (ER) | payer OTHER, SELFPAY ==
[2019-09-10 16:37] VITALS: BP 128/77; PULSE 78; RESP 15; TEMP 36.7; O2SAT 98; BMI 25.3
[2019-09-10] MEDS: diazePAM 5 MG Tablet PO (16:54)
--- NOTE | 2019-09-10 16:55 | RAD_ITS ---
STUDY: X-RAY - CERVICAL SPINE REASON FOR EXAM: Female, 24 years old. Neck pain and headache TECHNIQUE: 4 view(s) of the cervical spine were obtained. COMPARISON: None FINDINGS: Normal anterior atlantoaxial articulation. Normal odontoid process. Normal cervical lordosis. Normal vertebral bodies and endplates. Normal disc space heights. Normal visualized intervertebral neuroforamina. The soft tissue structures are unremarkable. RAD/Cerv Spine 2 or 3 Views IMPRESSION: Normal x-ray examination of the visualized cervical spine. Electronically Signed: Mehdi Montalvo MD at 17:10 EST , Service support ,
--- NOTE | 2019-09-10 17:18 | ED.VIS.GEN ---
History of Present Illness Chief Complaint: Other, Pain/Inj Informant: Patient Onset: Yesterday Narrative: Left-sided neck pain since 4 PM yesterday. No falls or injuries. Reports pain into her shoulder. Also reports numbness and tingling of the hand especially ulnar aspect. She is right-hand dominant. 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 History of gastric ulcers and kidney stones. Use Tylenol with no relief. Pain worse with movement. Prior similar symptoms: No Past Medical History - Allergies and Home Meds Allergies/Adverse Reactions: Allergies azithromycin [From Zithromax Z-Ruiz] Allergy (Verified 09/10/19 16:39) Anaphylaxis bacitracin [From Neosporin ([id number])] Allergy (Verified 09/10/19 16:39) Swelling bacitracin zinc [From Neosporin (mql-[id number])] Allergy (Verified 09/10/19 16:39) Swelling latex Allergy (Verified 09/10/19 16:39) Rash neomycin sulfate [From Neosporin (iur-pwu-cwikh)] Allergy (Verified 09/10/19 16:39) Swelling polymyxin B [From Neosporin (apy-hbb-jurim)] Allergy (Verified 09/10/19 16:39) Swelling prednisone Allergy (Verified 09/10/19 16:39) Anaphylaxis EXCEDRIN Allergy (Uncoded 09/10/19 16:39) Anaphylaxis Primary Care Physician: Kevin Stauffer MD [Primary Care Provider] - Surgical History: no surgical history Smoking Status: Never smoker - Family History Maternal Family History: Reports: No pertinent history Paternal Family History: Reports: No pertinent history Review of Systems General: Denies: Chills, Fever, Sweats Eyes: Denies: Visual changes - bilaterally, Diplopia ENT: Denies: Rhinorrhea, Sore throat Cardiovascular: Denies: Chest pain, Palpitations Respiratory: Denies: Dyspnea, Cough, Dyspnea on exertion Gastrointestinal: Denies: Abdominal pain, Nausea, Vomiting, Diarrhea, Melena, Hematochezia Genitourinary: Denies: Dysuria, Hematuria, Frequency Musculoskeletal: Reports: Neck pain. Denies: Back pain, Extremity Pain Skin: Denies: Rash, Wounds Neurological: Reports: Parasthesia, Numbness. Denies: Headache, Weakness Physical Exam Vital Signs/Narrative: Vital Signs Temp Pulse Resp BP Pulse Ox 09/10/19 16:37 98.1 F 78 15 128/77 H 98 Inital Vital Signs reviewed: Yes General: Well nourished, Well developed, No Acute Distress Head: Normocephalic, Atraumatic Eyes: Perrl, EOMI ENT: Moist mucous membranes, No rhinorrhea Neck: Supple, - - No midline tenderness tender palpation along left lateral cervical with somatic dysfunction especially at C2-C3. Spurling's test negative bilaterally. Cardiovascular: Regular rate, Regular rhythm, No murmurs Respiratory: No distress, CTA bilaterally, Chest nontender Abdomen: Soft, Nontender, Nondistended, Normal bowel sounds Back: Nontender, Normal Inspection Extremities: Nontender, No edema, - - Left upper extremity: Strength intact, positive Tinel's at ulnar cubital region. vascular intact distally. Skin: Normal color, No rash Neurological: Alert, Oriented x3, Cranial nerves II-XII grossly intact, Normal Strength, Normal Sensation Psychological: Normal affect, Normal Mood Diagnostic/Tx/Re-eval Clinical Impression(s) from Imaging Studies Cervical Spine X-Ray 09/10/19 16:55 IMPRESSION: Normal x-ray examination of the visualized cervical spine. Electronically Signed: Mehdi Montalvo MD at 17:10 EST , Service support , - Medical Decision Making History and exam not consistent with radicular symptoms into her hands. She has a positive Tinel's concerning for ulnar tunnel syndrome. Neck concern for cervical strain with pain to the upper trapezius region. Somatic dysfunction cervical spine, I did obtain x-rays which were negative. Discussed osteopathic manipulation for which she agreed. She was initially treated with Valium, HVLA performed upper cervical at C2 and C3 with improve movement and alignment, however she still reports muscle pain. She cannot do NSAIDs due to gastric ulcers. Discussed continue Tylenol every 6 hours. She provided short course of Valium to use for muscle relaxer control. She will follow-up with her PCP for reevaluation and further testing as an outpatient. All questions were answered. ED Disposition - Plan for ED Patient: Disposition: Home or Assisted Living Diagnosis: Sprain of cervical neck, Ulnar nerve entrapment syndrome Instructions: Neck Sprain/Strain Prescriptions: Diazepam [Valium] 5 mg PO Q8 PRN #12 tablet PRN Reason: Muscle Spasm Transmission Status: Sent to [facility] Referrals: Kevin Stauffer MD [Primary Care Provider] - 3-5 Days Additional Instructions: Neck x-ray normal. Somatic dysfunction of your neck, status post osteopathic manipulation of your neck. Continue Valium and Tylenol. Follow-up with your doctor. Left hand tingling concerns for ulnar nerve syndrome. Further work-up as an outpatient.
== END 2019-09-10 17:31 | disposition home or self-care (01) ==
PROVIDERS: Emergency Provider Emergency Medicine; Family Provider Family Medicine; PCP Family Medicine
DX: S13.4XXA Sprain of ligaments of cervical spine, initial encounter (principal); X58.XXXA Exposure to other specified factors, initial encounter; Y93.9 Activity, unspecified; G56.22 Lesion of ulnar nerve, left upper limb
CPT/HCPCS: 72040; 99283

== ENCOUNTER 2019-10-06 09:00 | Emergency (ER) | payer OTHER, SELFPAY ==
[2019-10-06 09:01] VITALS: BP 121/69; PULSE 103; RESP 16; TEMP 36.7; O2SAT 97; BMI 25.7
--- NOTE | 2019-10-06 09:18 | RAD_ITS ---
STUDY: X-RAY - RIGHT ANKLE REASON FOR EXAM: Female, 24 years old. Fall with pain TECHNIQUE: 3 view(s) of the ankle. COMPARISON: None. FINDINGS: Normal visualized distal tibia and fibula. Normal medial and lateral malleoli. Normal tibiotalar articulation and ankle mortise. Normal visualized talus and calcaneus. The visualized subtalar, talonavicular, calcaneocuboid and tarsal articulations are normal. The soft tissue structures are unremarkable. RAD/Ankle min 3 Views IMPRESSION: Normal x-ray examination of the ankle. Electronically Signed: Emery Baugh DO at 10:17 EST Tel , Service support ,
--- NOTE | 2019-10-06 09:19 | RAD_ITS ---
STUDY: X-RAY - RIGHT FOOT CLINICAL: Female, 24 years old. Foot and ankle pain TECHNIQUE: 3 view(s) of the foot. COMPARISON: None. FINDINGS: Normal talus, calcaneus, and tarsal bones. Normal visualized subtalar, talonavicular, calcaneocuboid, tarsal and tarsometatarsal articulations. Normal metatarsi. Normal metatarsophalangeal joint of the great toe. Normal tibial and fibular sesamoid bones. Normal interphalangeal joint of the great toe. Normal phalanges of the great toe. Normal second through fifth metatarsophalangeal joints. Normal interphalangeal joints and phalanges of the lesser toes. The soft tissue structures are unremarkable. RAD/Foot min 3 Views IMPRESSION: Normal x-ray examination of the foot. Electronically Signed: Emery Baugh DO at 10:13 EST Tel , Service support ,
--- NOTE | 2019-10-06 09:20 | ED.VIS.GEN ---
History of Present Illness <Santosh Donaldson - Last Filed: 10/06/19 09:32> Informant: Patient Narrative: Patient is a 24-year-old female with no significant past medical history who presents with right ankle pain. States that it began last night. States that she tripped while coming off of a concrete patio and twisted her right ankle. States that the pain is sharp in nature. Worse with ambulation. States that she is having difficulty bearing weight. States that she has broken this foot before in the past. Denies any numbness or tingling. Denies any head trauma or loss of consciousness. <Bryce Romero - Last Filed: 10/06/19 13:09> Chief Complaint: Lower Extremity Injury Past Medical History <Santosh Donaldson - Last Filed: 10/06/19 09:32> Prior records reviewed: Yes Past Medical History: None Surgical History: no surgical history Lives: Spouse/ Significant Other Smoking Status: Former smoker - Family History Maternal Family History: Reports: No pertinent history Paternal Family History: Reports: No pertinent history <Bryce Romero - Last Filed: 10/06/19 13:09> - Allergies and Home Meds Allergies/Adverse Reactions: Allergies azithromycin [From Zithromax Z-Ruiz] Allergy (Verified 10/06/19 09:01) Anaphylaxis bacitracin [From Neosporin (imd-rwn-dywgi)] Allergy (Verified 10/06/19 09:01) Swelling bacitracin zinc [From Neosporin (bhg-scy-jgycf)] Allergy (Verified 10/06/19 09:01) Swelling latex Allergy (Verified 10/06/19 09:01) Rash neomycin sulfate [From Neosporin (gmh-kwe-kidlt)] Allergy (Verified 10/06/19 09:01) Swelling polymyxin B [From Neosporin (zfd-qvu-cfxnb)] Allergy (Verified 10/06/19 09:01) Swelling prednisone Allergy (Verified 10/06/19 09:01) Anaphylaxis EXCEDRIN Allergy (Uncoded 10/06/19 09:01) Anaphylaxis Primary Care Physician: Kevin Stauffer MD [Primary Care Provider] - Review of Systems General: Denies: Chills, Fever, Sweats Eyes: Denies: Visual changes - bilaterally, Diplopia ENT: Denies: Rhinorrhea, Sore throat Cardiovascular: Denies: Chest pain, Palpitations Respiratory: Denies: Dyspnea, Cough, Dyspnea on exertion Gastrointestinal: Denies: Abdominal pain, Nausea, Vomiting, Diarrhea, Melena, Hematochezia Genitourinary: Denies: Dysuria, Hematuria, Frequency Musculoskeletal: Reports: Arthralgias. Denies: Back pain, Extremity Pain Skin: Denies: Rash, Wounds Neurological: Denies: Headache, Weakness, Numbness <Bryce Romero - Last Filed: 10/06/19 13:09> Physical Exam Vital Signs/Narrative: Vital Signs Temp Pulse Resp BP Pulse Ox 10/06/19 09:01 98.1 F 103 H 16 121/69 H 97 <Santosh Donaldson - Last Filed: 10/06/19 09:32> Vital Signs/Narrative: Vital Signs Temp Pulse Resp BP Pulse Ox 10/06/19 09:01 98.1 F 103 H 16 121/69 H 97 Inital Vital Signs reviewed: Yes General: Well nourished, Well developed, No Acute Distress Head: Normocephalic, Atraumatic Eyes: Perrl, EOMI ENT: Moist mucous membranes, No rhinorrhea Neck: Supple, Nontender Cardiovascular: Regular rate, Regular rhythm, No murmurs Respiratory: No distress, CTA bilaterally, Chest nontender Abdomen: Soft, Nontender, Nondistended, Normal bowel sounds Back: Nontender, Normal Inspection Extremities: No edema, Tenderness - Pain to palpation of the medial and lateral right ankle and foot. No significant edema or gnosis Skin: Normal color, No rash Neurological: Alert, Oriented x3, Cranial nerves II-XII grossly intact, Normal Strength, Normal Sensation Psychological: Normal affect, Normal Mood <Bryce Romero - Last Filed: 10/06/19 13:09> Diagnostic/Tx/Re-eval - Medical Decision Making The patient was seen with Dr. Lewis agree with history and physical as above patient injured her ankle twisting it, prior history of injury, the exam she is able to dorsi and plantarflex minimally the Achilles appears intact the foot is unremarkable, at this time x-rays will be obtained see the full chart for full details and disposition <Santosh Donaldson - Last Filed: 10/06/19 09:32> Chest X-Ray - ED: - - X-ray of the right ankle as well as foot shows no acute abnormality. - Medical Decision Making Patient appears well nontoxic. Vital signs within normal limits. No acute fracture. Patient was given naproxen and will be discharged home with this medication. Given Naren wrap as well as crutches. Asked to follow-up with her primary care provider. Patient agreeable and discharged home in stable condition. <Bryce Romero - Last Filed: 10/06/19 13:09> ED Disposition <Santosh Donaldson - Last Filed: 10/06/19 09:32> <Bryce Romero - Last Filed: 10/06/19 13:09> - Plan for ED Patient: Disposition: Home or Assisted Living Diagnosis: Sprain and strain of ankle Instructions: Sprain, Ankle, with X-Ray Prescriptions: Naproxen 500 mg PO BID 5 Days #10 tab Prescription Printed Referrals: Kevin Stauffer MD [Primary Care Provider] -
[2019-10-06] MEDS: Naproxen 500 MG Tablet PO (09:55)
== END 2019-10-06 10:50 | disposition home or self-care (01) ==
PROVIDERS: Emergency Provider Emergency Medicine; Family Provider Family Medicine; PCP Family Medicine
DX: S93.401A Sprain of unspecified ligament of right ankle, initial encounter (principal); S96.911A Strain of unspecified muscle and tendon at ankle and foot level, right foot, initial encounter; W01.0XXA Fall on same level from slipping, tripping and stumbling without subsequent striking against object, initial encounter; Y93.9 Activity, unspecified; Y92.9 Unspecified place or not applicable; Y99.9 Unspecified external cause status; Z88.1 Allergy status to other antibiotic agents; Z91.040 Latex allergy status; Z87.891 Personal history of nicotine dependence; Z79.899 Other long term (current) drug therapy
CPT/HCPCS: 73610; 73630; 99284

== ENCOUNTER 2020-03-02 14:24 | Day surgery (SDC) | payer MEDICAID, SELFPAY ==
[2020-03-02] VITALS (8 sets, daily range): BP systolic 90–110; BP diastolic 58–77; PULSE 60–83; RESP 16; TEMP 36.6–37.3; O2SAT 97–100; BMI 26.4
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
[2020-03-02 15:17] LABS: Absolute Lymphocyte Count 2.78 X10^3/uL (0.83-4.51); Absolute Neutrophil Count 6.4 X10^3/uL (2.0-7.7); Basophil# 0.03 X10^3/uL; Basophil% 0.3 % (0-1); Eosinophil# 0.02 X10^3/uL; Eosinophils% 0.2 % (0-5); Hematocrit 36.2 % (37-47); Hemoglobin 11.6 g/dL (12.0-15.0); Lymphocyte # 2.78 X10^3/ul (4.0); Lymphocyte % 26.8 % (19-41); Mean Corpuscular Hgb 25.1 pg (27.0-32.0); Mean Corpuscular Volume 78.4 fL (81-99); Mean Platelet Vol. 9.9 fl (6.2-12.0); Monocyte# 1.09 X10^3/uL; Monocyte% 10.5 % (0-10); NRBC Flagged by Analyzer 0 % (0-5); Neutrophil # 6.44 X10^3/uL (2.7-7.7); Neutrophil % 61.9 % (47-70); Platelet Count 304 K/mm3 (150-450); RBC Distribution Width CV 13.7 % (11.6-14.6); RBC Distribution Width SD 39.2 fl (35.1-43.9); Red Blood Count 4.62 M/mm3 (4.2-5.4); White Blood Count 10.4 K/mm3 (4.4-11.0)
[2020-03-02 15:19] LABS: Prothrombin Time (Protime)PT. 13.1 SECONDS (11.7-14.9)
[2020-03-02] MEDS: Lactated Ringers 1,000 ML 100 ML IV (15:19)
[2020-03-02 15:20] LABS: Partial Thromboplast Time 32.3 Seconds (24.1-36.2)
--- NOTE | 2020-03-02 16:20 | OV_PTH ---
PATIENT: SONIA SZYMANSKI LOC: [facility] [place] U#:[id number] AGE/SX: 24/F ROOM: RE03/02/[address]: Dr. Jamil Martinez MD : 1995 BED: DIS: 03/02/2020 SPEC #: [id number] RECD: 03/03/20 07:57 STATUS: CHRIS JUDIE #: [id number] LENORA: 03/02/20 16:[address]: Jamil Martinez DEPT: SURGICAL PATHOLOGY RECD BY: Rosie Matamoros ENTERED: 03/03/20 09:05 SP TYPE: OVARY OTHR DR: Dr. Kevin Stauffer MD Tissues: Left ovary Procedures: Surgery Specimen Level IV Surgery Specimen Level V HEADER OPERATION: Laparoscopic left salpingo-oophorectomy, right salpingectomy PRE-OP DIAGNOSIS: Left ovarian cyst, left lower quadrant pain TISSUE SUBMITTED: Left fallopian tube and ovary, right fallopian tube MICROSCOPIC DIAGNOSIS Left fallopian tube and ovary and right fallopian tube, left salpingo-oophorectomy and right salpingectomy: Bilateral fallopian tubes - no pathologic diagnosis. Left ovary: Serous cystadenoma (1 cm in greatest dimension). See comment. - Hemorrhagic corpus luteum cyst and physiologic follicular cysts.. SJ:rg 03/04/20 COMMENT The lesion was noted grossly as paratubal cyst Case has been reviewed in consultation with Dr. Wheeler who concurs with the above diagnosis. IDC:AM MICROSCOPIC DESCRIPTION Slides are reviewed. GROSS DESCRIPTION Received in fixative is one container labeled with the patient's name and designated left fallopian tube and ovary and right fallopian tube. The specimen consists of bilateral fallopian tubes including fimbrial endsand ovary in multiple pieces identified as left ovary and one detached piece of fallopian tube. One of the fallopian tubes measures 5 cm in length and up to 0.6 cm in diameter. The fimbrial end is identified. Sections reveal unremarkable cut surfaces. A paratubal cyst is noted filled with agosto turbid fluid measuring 1 cm in diameter. The cyst wall is smooth without any papillation. The second fallopian tube measures 3.5 cm in length and 0.5 cm in diameter. Sections do not reveal any mass lesion. The fimbrial end is identified. The smaller detached piece of fallopian tube measures 0.5 cm in length and 0.5 cm in diameter. The detached ovary in multiple pieces measures in aggregate 4.5 x 4 x 1.5 cm. A few of the fragments consist of hemorrhagic tissue and may represent hemorrhagic cyst content. The largest piece of ovary measures 4 cm in greatest dimension. Sections reveal multiple cysts filled with hemorrhagic fluid. The largest cyst measures 1 cm in greatest dimension. Detention Deputy sections are submitted in eight cassettes as follows: 1 - one fallopian tube including paratubal cyst, 2-3 - second fallopian tube and detached piece of fallopian tube, inked black, 4-8 - ovary (4 contains the hemorrhagic tissue). / SJ:mariella 03/03/20 TC:1 CPT: 42469, 73454
--- NOTE | 2020-03-02 16:50 | OP.PCM_ITS ---
Report of Operation Date of Procedure: 03/02/20 Pre-Operative Diagnosis: Left Ovarian Cyst, Left Lower Quadrant Pain Post-Operative Diagnosis: Left Ovarian Cyst, Left Lower Quadrant Pain, Dense Adhesions Surgery/Procedure Performed:: Diagnostic Laparoscopy, Laparoscopic Left Salpingo-Oophorectomy, Right Salpingectomy, Lysis of Dense Adhesions Description of Surgical Findings:: 8 cm size uterus with small cervix high in vagina which would make laparoscopic- assisted vaginal hysterectomy technically not feasible. However robotic assisted vaginal hysterectomy would be feasible if hysterectomy were ever needed. Dense adhesions of the uterus to the anterior abdominal wall and dense adhesions of the remnants of the fallopian tubes to the abdominal wall. Dense adhesions of the omentum to the anterior abdominal wall. The majority this adhe sions were taken down with Enseal cautery. 5 cm left ovarian cyst with clear fluid present on a small stalk which would make pain from torsion likely. Evidence of prior bilateral tubal ligation. Normal right ovary and normal uterus except for the dense adhesions of the uterus to the anterior abdominal medina. No evidence of endometriosis. cooling tower technician: Shahrzad Bang Type of Anesthesia:: General - Endotracheal Anesthesiologist: Esa Post Specimen's removed: Left fallopian tube and ovary, right fallopian tube Estimated Blood Loss (mL): Minimal Fluids Replaced: Crystalloid Description of Procedure: Surgeon: Jamil Martinez MD, FACOG Indications: This is a 24 year old patient who presented to the emergency room in [place] last Ernesto with severe left lower quadrant pain. She was noted to have approximately a 5 cm left ovarian cyst and was given Percocet and sent home. Her pain persisted and she presented again to the emergency room in [place] today. Her pain was so severe that she was nearly unable to walk. Repeat ultrasound showed a persistent left ovarian cyst. Urine test was negative. White count was normal. Patient denies any nausea vomiting or diarrhea. She has had a prior tubal sterilization done. She desires that we proceed with surgery due to the pain being so severe. Patient has been counseled during the risk and indications of this procedure including the possibly of bleeding, infection, and injury to surrounding structures such as bowel and bladder. All questions were answered to consider the patient well- informed. Procedure: The patient was taken to the operating room where after induction of general anesthesia, she was placed in the dorsolithotomy position and prepped and draped in the usual sterile fashion. The bladder was drained of appro ximately 50 cc of clear yellow urine with a latex free catheter. Anterior cervix was grasped with the tenaculum. Conn cannula was placed and attention was turned toward the laparoscopic portion of the procedure. Approximately 20 cc of half percent ropivacaine was injected subumbilically, 10 cm right and lateral to the subumbilical port, and suprapubically after adhesions had been cleared. A 5 mm bladeless trocar was placed subumbilically and intraperitoneal placement confirmed. After CO2 insufflation was complete, a 5 mm bladeless trocar was introduced in the right lateral area. This was done under direct visualization. The above adhesive findings were noted and after ligating these adhesions a 10/12 mm bladeless port was placed suprapubically. Enseal device was used to ligate the majority of adhesions and infundibulopelvic ligaments on the left and was also used to detach the left cystic ovary and left fallopian tube remnants. The right fallopian tube was also detached with the Enseal device. All remnants were brought through the 10/12 mm suprapubic port with a laparoscopic grasper. Pelvis was copiously irrigated and hemostasis was noted. The right ureter was noted to peristalsis after the procedure. Photographs were taken. Laparoscopic instruments with as much CO2 gas as possible were removed and incisions were closed with interrupted 4-0 Monocryl suture after placing 2 [id number] 0 Vicryl sutures deep in the 10/12 mm port site to close underlying subcutaneous tissue. Steri-Strips placed across the incision. Vaginal instruments were removed. Patient tolerated procedure well was taken to recovery room in satisfactory condition sponge instrument and needle counts were all reportedly correct. Estimated blood loss for the case was minimal. There were no apparent complications of the surgery. Cefotan 2 g IV was given prior to beginning the operative procedure. Specimens to pathology was bilateral tubes and left cystic ovary. Grafts/Implants Used: None - Complications None - Admit VTE Documentation VTE Present on Admission: Yes VTE Mechan Device Prophylaxis: SCD's
--- NOTE | 2020-03-02 16:55 | DCINST_ITS ---
Discharge Diet: No Restrictions - Increase fluid intake for the next 48 hours. Discharge Activity: Return to Normal Activity, May Drive - when you are no longer taking pain/narcotic medicines., May Shower, May Take a Tub Bath May resume sexual activity in: 2 weeks Additional Activity Instructions:: Ambulate often the next week after surgery. Nothing in the vagina for 5 days. Call your doctor if your incision/area has: Continuous Slow Oozing, Sudden Increased Bleeding, Increased Pain/ Swelling, Increased Redness, Foul Smelling Discharge Call your doctor if you observe: Fever of 101 or Higher, Inability to urinate, Inability to have a bowel movement, Using more than one pad per hour Allergies/Adverse Reactions: Allergies azithromycin [From Zithromax Z-Ruiz] Allergy (Verified 03/02/20 14:48) Anaphylaxis bacitracin [From Neosporin ([id number])] Allergy (Verified 03/02/20 14:48) Swelling bacitracin zinc [From Neosporin ([id number])] Allergy (Verified 03/02/20 14:48) Swelling latex Allergy (Verified 03/02/20 14:48) Rash neomycin sulfate [From Neosporin ([id number])] Allergy (Verified 03/02/20 14:48) Swelling polymyxin B [From Neosporin ([id number])] Allergy (Verified 03/02/20 14:48) Swelling prednisone Allergy (Verified 03/02/20 14:48) Anaphylaxis EXCEDRIN Allergy (Uncoded 03/02/20 14:48) Anaphylaxis Medications to take at Discharge Verapamil HCl [Verapamil ER] 120 mg PO DAILY 03/19/19 Hydroxyzine HCl 25 mg PO PRN PRN 10/06/19 Levothyroxine [Synthroid] 112 mcg PO DAILY@0600 03/02/20 Oxycodone [Oxyir] 5 mg PO Q6H PRN PRN 7 Days #10 tablet 03/02/20 The following prescriptions were given: Oxycodone [Oxyir] 5 mg PO Q6H PRN PRN 7 Days #10 tablet PRN Reason: Pain Score 6-10/10 Transmission Status: Sent to [facility] #30 Primary Care Physician: Kevin Stauffer MD [Primary Care Provider] - Test Results: Test results from this visit will be discussed in further detail at your follow- up appointment, if applicable. Please Follow Up With: Jamil Martinez MD - [phone] When: 2 to 3 weeks.
[2020-03-02] MEDS: Ropivacaine 0.5% 30 ML Vial (17:05)
[2020-03-02] MEDS: oxyCODONE 5 MG Tablet PO (19:45)
== END 2020-03-02 20:35 | disposition home or self-care (01) ==
LOC: SDC 14:30 → AC 14:30
PROVIDERS: PCP Family Medicine; Referring Provider Obstetrics & Gynecology; Visit Provider Obstetrics & Gynecology
PROC: (CPT 58661; principal; 2020-03-02 16:05)
DX: D27.1 Benign neoplasm of left ovary (principal); N83.12 Corpus luteum cyst of left ovary; Z87.891 Personal history of nicotine dependence; Z79.899 Other long term (current) drug therapy; E05.00 Thyrotoxicosis with diffuse goiter without thyrotoxic crisis or storm; J45.909 Unspecified asthma, uncomplicated; K21.9 Gastro-esophageal reflux disease without esophagitis
CPT/HCPCS: 00840; 58661; 36415; 85025; 85610; 85730; 86850; 86900; 86901; 88305; 88307; J7120; C1760; J2405

== ENCOUNTER → 2020-04-28 12:22 | Outpatient (CLI) | payer MEDICAID, SELFPAY ==
[2020-03-02 14:58] VITALS: BMI 26.4
--- NOTE | 2020-04-28 12:25 | US_ITS ---
STUDY: ULTRASOUND OF THE FEMALE PELVIS - COMPLETE REASON FOR EXAM: Female, 25 years old. RLQ PAIN -- LTO / TUBE REMOVED LMP: March 31, 2020. TECHNIQUE: Transabdominal TECHNICAL QUALITY: Adequate. COMPARISON: Comparison is made with prior examination dated December 09, 2018. FINDINGS: The uterus is anteverted and is in a midline position. The uterus measures 10.6 cm x 3 cm x 5.6 cm. Normal uterine cervix. The endometrium measures 8.0 mm in thickness, and is heterogeneous (striated). There is no demonstrated endometrial mass. There is no demonstrated myometrial mass. I.U.D. - The patient does not have an I.U.D. The right ovary is visualized. The right ovary measures 2.6 cm x 2.4 cm x 2.4 cm. There is no right ovarian cyst or ovarian mass. There is no visualized right adnexal mass or complex lesion. There is normal arterial and normal venous vascularity. The left ovary is non-visualized. The patient is status post left oophorectomy. There is no fluid in the cul-de-sac. The pre void volume of the bladder was 267 ml. Polycystic ovary disease: No. US/Pelvic (Non ) IMPRESSION: Normal female pelvis. Status post left oophorectomy. Electronically Signed: Lonnie Kim, at 13:06 EDT , Service support ,
== END ==
PROVIDERS: PCP Family Medicine; Referring Provider Obstetrics & Gynecology; Visit Provider Obstetrics & Gynecology
DX: R10.31 Right lower quadrant pain (principal)
CPT/HCPCS: 76856; 93976

== ENCOUNTER 2020-08-13 14:22 | Observation (INO) | payer MEDICAID, SELFPAY ==
[2020-03-02 14:58] VITALS: BMI 26.4
--- NOTE | 2020-08-07 09:12 | EKG12_ITS ---
Test Reason : PRE OP Blood Pressure : / mmHG Vent. Rate : 072 BPM Atrial Rate : 072 BPM P-R Int : 142 ms QRS Dur : 084 ms QT Int : 356 ms P-R-T Axes : 039 055 -16 degrees QTc Int : 389 ms Normal sinus rhythm Nonspecific T wave abnormality Abnormal ECG Confirmed by SENIA PRO, DIANE ([id number]), editor school photograph SOILA SORIANO ([id number]) on 08/10/2020 7:59:44 AM Referred By: Diana Watson Confirmed By:DIANE CONN MD
[2020-08-07 11:13] LABS: Hemoglobin 12.8 g/dL (12.0-15.0); Mean Corp Hgb Conc 31.2 g/dL (32-36); Mean Corpuscular Hgb 25.2 pg (27.0-32.0); Mean Corpuscular Volume 80.7 fL (81-99); Mean Platelet Vol. 10.1 fl (6.2-12.0); Platelet Count 420 K/mm3 (150-450); RBC Distribution Width CV 13.2 % (11.6-14.6); RBC Distribution Width SD 38.7 fl (35.1-43.9); Red Blood Count 5.08 M/mm3 (4.2-5.4); White Blood Count 7.1 K/mm3 (4.4-11.0)
[2020-08-07 11:28] LABS: Prothrombin Time (Protime)PT. 13.1 SECONDS (11.7-14.9)
[2020-08-07 11:29] LABS: Partial Thromboplast Time 29.9 Seconds (24.1-36.2)
[2020-08-07 11:50] LABS: AST(SGOT) 9 U/L (15-37); Alanine Aminotransfer ALT/SGPT 15 U/L (13-56); Alkaline Phosphatase 85 U/L (45-117); Anion Gap 5 (5-15); BUN 6 mg/dL (7-18); BUN/Creat Ratio 7.9 RATIO (10-20); Bilirubin, Direct 0.18 mg/dL (0.00-0.30); Calcium,Total 9.3 mg/dL (8.5-10.1); Chloride 107 mmol/L (98-107); Creatinine, Serum 0.76 mg/dL (0.55-1.02); EST Glomerular Filtration Rate 96 mL/min (>60); Est Glom Filt Rate - Afr Amer 116 mL/min (>60); Globulin 4.5 g/dL (2.2-4.2); Glucose 92 mg/dL (74-106); Potassium 3.8 mmol/L (3.5-5.1); Protein, Total 8.5 g/dL (6.4-8.2); Sodium Level 139 mmol/L (136-145); Thyroid Stim Hormone (TSH) 0.26 uIU/mL (0.358-3.74)
[2020-08-07 18:40] LABS: Free T3 3.2 pg/mL (2.18-3.98); T4 Free Direct 1.33 ng/dL (0.76-1.46)
[2020-08-13] VITALS (13 sets, daily range): BP systolic 101–122; BP diastolic 7–80; PULSE 65–98; RESP 16–18; TEMP 36.8–37.7; O2SAT 93–100; BMI 25.7
--- NOTE | 2020-08-13 00:17 | PCM.HPOB.BLA ---
- Problem List (1) Chronic female pelvic pain Status: Chronic (2) Adenomyosis Status: Acute (3) Endometriosis determined by laparoscopy Status: Acute (4) Abnormal uterine bleeding (AUB) Status: Acute History and Physical Date of Admission: 08/13/20 Date: 08/07/2020 Name: SONIA AVENDAÑO Age: 25 Date of : 1995 HISTORY OF PRESENT ILLNESS: On 08/07/2020, Sonia Avendaño, a 25 year old female 1 0 0 0 1, presented for: -- Pre-Op -- Sonia is being seen for pre op visit. Mother and son are with pt for visit today. Pt to have LAVH 08/13/[address] Bonnie Watson at [facility]. Pt is having surgery due to adenomyosis. Consents signed and information reviewed. Medications and allergeis are up to date. AM as above. hx known endometriosis and chronic pelvic pain with dysmenorrhea and AUB with presumed adenomyosis. Plan for LAVH. [facility] ALLERGIES: Latex, Hives and/or rash, Voltaren, Swelling-throat, Zithromax, Swelling-throat, Prednisone, Swelling-throat, Neosporin, Tongue swelling, Excedrin Migraine, Tongue swelling, Aspirin and Gastric ulcer with hemorrhage MEDICATIONS HISTORY: Current medications prescribed by our practice are: 1. gabapentin 300 mg capsule, take 1 capsule qd for 1 week then increase to bid 2. Prometrium 200 mg capsule, One pill by mouth twice a day Patient is also takin. albuterol sulfate HFA 90 mcg/actuation aerosol inhaler, As Directed 2. hydroxyzine HCl 25 mg tablet, One pill by mouth three times a day prn 3. nitroglycerin 0.3 mg sublingual tablet, As Directed prn 4. Synthroid 112 mcg tablet, One pill by mouth once a day 5. verapamil ER 120 mg 24 hr capsule,extended release, One pill by mouth once a day 6. Zoloft 25 mg tablet, 1 tab po daily REVIEW OF SYSTEMS: GENERAL - Denies fever, or chills SKIN - Denies skin changes EYES - Denies visual changes EARS - Denies difficulty hearing NOSE - Denies nasal congestion or bleeding MOUTH - Denies sore throat or difficulty swallowing NECK - Denies pain or swelling RESPIRATORY - Denies shortness of breath or wheezing CARDIOVASCULAR - Denies palpitations or chest pain GASTROINTESTINAL - Denies nausea, vomiting, diarrhea, constipation GENITOURINARY - Denies dysuria, frequency of urination, incontinence of urine MUSCULOSKELETAL - Denies joint or muscle pain NEUROLOGICAL - Denies localized numbness or weakness PSYCHIATRIC - Denies depression or anxiety ENDOCRINE - Denies heat or cold intolerance, weight loss or gain HEMATO-IMMUNOLOGIC - Denies excesive bleeding with cuts SURGICAL HISTORY: 1. 05/31/2018 and Tubal Summer Bonnie Watson MD 2. 03/02/2020 Dx laparoscopy, LSO/Rt salpingectomy, lysis of adhesions Jamil Martinez M.D. 3. thyroidectomy 2016 4. Nelson Teeth Removal MENSTRUAL HISTORY: LMP Known?- Approximate-Month KnownAmount/Duration - 4 to 7 days, Regularity - Irregular, Frequency - variable days, LMP - 08/05/20, Age Onset Menarche - 10 FAMILY HISTORY: Uncle - Type 1 Diabetes; SOCIAL HISTORY: Alcohol Use - denies drinking Smoking - used to smoke but quit Diet - no particular diet Lifestyle - Exercise - none Seat Belt Use - always Employer - stays at home Illicit Drug Use - denies use of street drugs Sexual Activity - single sexual partner Residence - lives with Place of - [place], [place] Spouse-Sig Other Name - Compa Avendaño Spouse-Sig Other 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 Spouse-Sig Other Phone No - [phone] Children Name(s) - Americo Lazaro Control - Tubal PHYSICAL EXAMINATION BP- 110/76 Sitting, Right arm, regular cuff Temp- 98.2 Weight- 153.00 lbs Height- 64.25 inch BMI:26.11 CONSTITUTIONAL - NAD, well nourished, and well developed SKIN - No rash, lesions, or ulcers HEENT - Normocephalic, PERRLA, EOMI LUNGS - CTA x2 without wheezes, crackles or rales CARDIAC - Regular rate and rhythm without rubs, murmurs, or gallops ABDOMEN - Without hepatosplenomegaly, distention, masses, rebound, or guarding; normal bowel sounds; no hernias EXTREMITIES - No edema or calf tenderness NEUROLOGICAL - normal gait, normal balance, normal motor PSYCHIATRIC - A and O to time, place, person, mood and affect Laboratory Tests 10/16/20 10/16/20 10/16/20 Range/Units 11:03 11:01 11:01 WBC (4.4-11.0) K/mm3 RBC (4.2-5.4) M/mm3 Hgb (12.0-15.0) g/dL Hct (37-47) % MCV (81-99) fL MCH (27.0-32.0) pg MCHC (32-36) g/dL RDW Std Deviation (35.1-43.9) fl RDW Coeff of Renetta (11.6-14.6) % Plt Count (150-450) K/mm3 MPV (6.2-12.0) fl PT 13.1 (11.7-14.9) SECONDS INR 1.0 APTT 29.9 (24.1-36.2) Seconds Sodium 139 (136-145) mmol/L Potassium 3.8 (3.5-5.1) mmol/L Chloride 107 (98-107) mmol/L Carbon Dioxide 27.0 (21.0-32.0) mmol/L Anion Gap 5 (5-15) BUN 6 L (7-18) mg/dL Creatinine 0.76 (0.55-1.02) mg/dL Est GFR (MDRD) Af Amer 116 (>60) mL/min Est GFR (MDRD) Non-Af 96 (>60) mL/min BUN/Creatinine Ratio 7.9 L (10-20) RATIO Glucose 92 (74-106) mg/dL Calcium 9.3 (8.5-10.1) mg/dL Total Bilirubin 0.80 (0.20-1.00) mg/dL Direct Bilirubin 0.18 (0.00-0.30) mg/dL AST 9 L (15-37) U/L ALT 15 (13-56) U/L Alkaline Phosphatase 85 (45-117) U/L Total Protein 8.5 H (6.4-8.2) g/dL Albumin 4.0 (3.2-5.0) g/dL Globulin 4.5 H (2.2-4.2) g/dL TSH 0.26 L (0.358-3.74) uIU/mL Free T4 1.33 (0.76-1.46) ng/dL Free T3 pg/dL 3.2 (2.18-3.98) pg/mL COVID-19 (PINKY) (Not Detected) Blood Type O POSITIVE Antibody Screen NEGATIVE 08/07/20 08/07/20 Range/Units 11:01 09:15 WBC 7.1 (4.4-11.0) K/mm3 RBC 5.08 (4.2-5.4) M/mm3 Hgb 12.8 (12.0-15.0) g/dL Hct 41.0 (37-47) % MCV 80.7 L (81-99) fL MCH 25.2 L (27.0-32.0) pg MCHC 31.2 L (32-36) g/dL RDW Std Deviation 38.7 (35.1-43.9) fl RDW Coeff of Renetta 13.2 (11.6-14.6) % Plt Count 420 (150-450) K/mm3 MPV 10.1 (6.2-12.0) fl PT (11.7-14.9) SECONDS INR APTT (24.1-36.2) Seconds Sodium (136-145) mmol/L Potassium (3.5-5.1) mmol/L Chloride (98-107) mmol/L Carbon Dioxide (21.0-32.0) mmol/L Anion Gap (5-15) BUN (7-18) mg/dL Creatinine (0.55-1.02) mg/dL Est GFR (MDRD) Af Amer (>60) mL/min Est GFR (MDRD) Non-Af (>60) mL/min BUN/Creatinine Ratio (10-20) RATIO Glucose (74-106) mg/dL Calcium (8.5-10.1) mg/dL Total Bilirubin (0.20-1.00) mg/dL Direct Bilirubin (0.00-0.30) mg/dL AST (15-37) U/L ALT (13-56) U/L Alkaline Phosphatase (45-117) U/L Total Protein (6.4-8.2) g/dL Albumin (3.2-5.0) g/dL Globulin (2.2-4.2) g/dL TSH (0.358-3.74) uIU/mL Free T4 (0.76-1.46) ng/dL Free T3 pg/dL (2.18-3.98) pg/mL COVID-19 (PINKY) Not Detected (Not Detected) Blood Type Antibody Screen ASSESSMENT: PLAN BY DIAGNOSIS: 1. Dyspareunia, Endometriosis Of Uterus, Lower Abdominal Pain, Unspecified and Secondary Dysmenorrhea Adenomyosis and endometriosis Plan for LAVH, r/b ovarian conservation discussed at length today. Pt in agreement with oophorectomy as surgically indicated, otherwise plan for conservation Procedural r/b/i/a reviewed Consents signed, preop instructions reviewed at length Rx Oxycodone 5mg, #15 Pt and mother given opportunity to ask questions and questions answered to her satisfaction Medication(s) Stopped/Reason: Prometrium 200 mg capsule - No Longer Needed
[2020-08-13] MEDS: Acetaminophen 500 MG Tablet 1000 MG PO ×2 (08:39→18:04)
[2020-08-13] MEDS: Heparin Injection (Vial) 5,000 UNIT/ML VIAL 5000 UNIT SC ×2 (08:41→21:19)
[2020-08-13] MEDS: Lactated Ringers 1,000 ML 75 ML IV ×4 (09:14→19:00)
--- NOTE | 2020-08-13 10:10 | HYST_PTH ---
PATIENT: SONIA SZYMANSKI LOC: MS3 U#:[id number] AGE/SX: 25/F ROOM: [facility] RE08/13/[address]: Dr. Diana Watson MD : 1995 BED: 1 DIS: 08/14/2020 SPEC #: [id number] RECD: 08/14/20 07:15 STATUS: CHRIS REJamir #: [id number] LENORA: 08/13/20 10:[address]: Diana Steele DEPT: SURGICAL PATHOLOGY RECD BY: Rosie Matamoros ENTERED: 08/14/20 07:59 SP TYPE: HYSTERECT OTHR DR: Dr. Kevin Stauffer MD Tissues: A - Ligament, NOS B - Perineum, NOS C - Uterus, NOS Procedures: Surgery Specimen Level IV Surgery Specimen Level V HEADER OPERATION: Resection of endometriosis, hysterectomy, LAVH PRE-OP DIAGNOSIS: Chronic pelvic pain, adenomyosis, endometriosis, abnormal uterine bleeding TISSUE SUBMITTED: A - Left uterosacral ligament endometriosis, B - Posterior cul-de-sac endometriosis, C - Uterus and cervix MICROSCOPIC DIAGNOSIS A. Left uterosacral ligament, biopsy: Fragments of fibroconnective tissue with focal changes suggestive of endometriosis. B. Posterior cul-de-sac, biopsy: Fragments of fibroconnective tissue with focal changes suggestive of endometriosis. C. Uterus and cervix, hysterectomy: Cervix - mild chronic cystic cervicitis. Endometrium - proliferative endometrium. Myometrium - no pathologic diagnosis. SJ:mariella 08/17/20 COMMENT Case has been reviewed in consultation with Dr. Wheeler who concurs with the above diagnosis. IDC:AM MICROSCOPIC DESCRIPTION Slides are reviewed. GROSS DESCRIPTION A - Received in fixative is one container labeled with the patient's name and designated left uterosacral ligament endometriosis. The specimen consists of multiple irregular fragments of craft congested soft tissue that in aggregate measure 2 x 0.5 x 0.3 cm. The specimen is totally submitted in one cassette. B - Received in fixative is one container labeled with the patient's name and designated posterior culdesac endometriosis. The specimen consists of two irregular fragments of craft-pink congested soft tissue that in aggregate measure 1.5 x 0.5 x 0.2 cm. The specimen is totally submitted in one cassette. C - Received in fixative is one container labeled with the patient's name and designated uterus and cervix. The specimen consists of a hysterectomy specimen consisting of uterus with cervix weighing 49 gm and measuring 8 x 5 x 3 cm. The serosal surface is craft, glistening. The ectocervical mucosa is unremarkable. The external os is oval in contour. The endocervical canal measures 3 cm in length and the endocervical mucosa is craft, glistening and unremarkable. The triangular endometrial cavity measures 4 cm in length and 1.5 cm in width. The endometrium is craft, glistening, focally congested without any mass lesion and measures 0.1 cm in thickness. Sections of the uterine wall do not reveal any mass lesion and measures 1.5 cm in thickness. Mortar Carrier sections are submitted in six cassettes as follows: 1 - anterior cervix, 2 - posterior cervix, 3 & 4 - anterior uterine wall, 5 & 6 - posterior uterine wall. / MOISE:mariella 08/14/20 TC:5 CPT: 64732, 11300 x2
[2020-08-13] MEDS: Cefotetan 2 GM in 0.9% NS 100 ML IV (11:47)
[2020-08-13] MEDS: Bupivacaine Mpf 0.5% 30 ML VIAL (12:13)
[2020-08-13] MEDS: Vasopressin 20 UNITS/ML Vial (13:40)
--- NOTE | 2020-08-13 14:27 | PCM.OPRPT ---
Problem List (1) Chronic female pelvic pain Status: Chronic (2) Adenomyosis Status: Acute (3) Endometriosis determined by laparoscopy Status: Acute (4) Abnormal uterine bleeding (AUB) Status: Acute Report of Operation Date of Procedure: 08/13/20 Pre-Operative Diagnosis: 1. Chronic pelvic pain. 2. Endometriosis. 3. Adenomyosis. 4. Dysmenorrhea. 5. Irregular menstruation Post-Operative Diagnosis: 1. Chronic pelvic pain. 2. Endometriosis. 3. Adenomyosis. 4. Dysmenorrhea. 5. Irregular menstruation Surgery/Procedure Performed:: Laparoscopic assisted vaginal hysterectomy. Lysis of adhesion. Surgical treatment of endometriosis Description of Surgical Findings:: Posterior culdesac and L. uterosacral ligament endometriosis Anterior culdesac bladder adhesions Absent tubes bilaterally, absent L. ovary R. ovary normal in appearance pediatric oncologist: Bárbara Woods SSFA Type of Anesthesia:: General, Local Anesthesiologist: Terrance Varma Specimen's removed: 1. uterus and cervix. 2. L. uterosacral ligament peritoneum. 3. Posterior culdesac peritoneum #1. 4. Posterior culdesac peritoneum #2 Drains: UO 150 mL Estimated Blood Loss (mL): 350 ml Fluids Replaced: 1100 ml Description of Procedure: Indications: 25-year-old 1 para 1-0-0-1 with history of chronic pelvic pain no endometriosis as confirmed by laparoscopy prior with recurrent pelvic pain refractory to progestin hormonal medical management. Patient was not a candidate for [facility]. She was counseled regarding management options and opted to proceed with laparoscopic-assisted vaginal hysterectomy with unilateral ovarian conservation. Patient had previously undergone bilateral salpingectomy and LSO for ovarian cyst and sterilization request. Procedural risks, benefits, indications and alternatives were reviewed at length. Patient desired to proceed. Procedure: The patient was brought to the operating room and signed was performed. She was placed in the dorsal supine position and induced under general anesthesia and intubated. She was repositioned to dorsolithotomy and examination under anesthesia prep was performed. Her arms were tucked at her sides. The abdomen and perineum were prepped and draped in sterile fashion. The catheter was placed in the bladder. Patient was placed into high lithotomy and a weighted speculum placed vaginally. The cervix was grasped the anterior cervical lip and sounded to 8 cm. The tenaculum was removed and an ad [employer] allow uterine manipulator was placed. The patient was placed into low lithotomy attention turned to the abdomen. An inferior umbilical incision was made using a scalpel and Veress needle was subsequently placed with successful hanging drop test and no aspirate. Abdominal entry pressures were less than 5 mmHg. The abdomen was insufflated to 15 mmHg. The Veress needle was removed and a 5 mm trocar was placed under laparoscopic guidance confirming entry into the abdominal cavity. Right and left lower quadrant tap blocks were performed under laparoscopic guidance using half percent Marcaine. Using transillumination incisions were made at each of the sites and 5 mm ports were also placed. A suprapubic incision was made and a 5 mm port also placed at the site. The patient was placed into Trendelenburg. The abdomen and pelvis were inspected. There was extensive scarring of the bladder to the uterus likely due to prior sections as well as posterior cul-de-sac, and sigmoid adhesions to the left uterus were present. The left uterosacral ligament endometriosis noted. The bilateral tubes and left ovary were notably surgically absent. I sharply and bluntly dissected the of the sigmoid uterine adhesions. The left ureter tract was identified and left uterosacral peritoneum endometriosis was demarcated using L hook electrocoagulation and a wide margin. The peritoneum was undermined sharply and bluntly with excision of the peritoneum. In similar fashion posterior cul-de-sac endometriosis was also removed. Third lesion was close to the rectum. And E EA sizer was placed rectally to demarcate the rectum further. The right lateral posterior cul-de-sac endometriosis lesion was sharply and bluntly excised using wide margin. The EEA sizer was removed. Approximately 45 minutes of time was devoted to excision of endometriotic lesions section. I then proceeded with the hysterectomy. The left round ligament was clamped, coagulated and transected using the LigaSure. The anterior broad ligament was opened and the uterine vessels were skeletonized and the left bladder flap created with lysis of anterior bladder adhesions sharply and bluntly. The posterior broad ligament was taken down. Attention was turned to the right adnexa. The uterine ovarian ligament and the round ligaments were simultaneously clamped, electrocoagulated and transected using the LigaSure device. The anterior broad ligament was opened with skeletonization of the uterine arteries and completion of the bladder flap. The posterior broad ligament was opened. The uterine vessels bilaterally were electrocoagulated using the LigaSure device. The laparoscope was removed and abdomen desufflated, and attention was turned to the perineum. The patient was placed into high lithotomy, less steep Trendelenburg and a weighted speculum was placed vaginally. The Advincula uterine manipulator was removed. The cervix was grasped the anterior cervical lip using a single-tooth tenaculum. A circumferential incision was just inferior to the cervicovaginal junction using a scalpel. The anterior vesicouterine uterine membrane was dissected and the anterior cul-de-sac peritoneum was entered identified and sharply entered. A curved Bellmont was placed at the site. The posterior cul-de-sac was entered sharply and a long weighted speculum was placed here. The uterosacral then cardinal ligaments and uterine vessels were serially Kin clamped cut and suture ligated using 0 Vicryl. 0 Vicryl was used for all sutures during this procedure. The uterus and cervix were delivered. A modified Hunter culdoplasty was performed incorporating the uterosacral ligament pedicles with the posterior and anterior cul-de-sac peritoneum distally. The vaginal cuff was reapproximated using serial figure of 8 sutures. There is good hemostasis here. The patient was placed into low lithotomy and attention turned to the abdomen for repeat laparoscopy. The abdomen was reinsufflated to 15 mmHg and laparoscopy again performed. The pelvis was irrigated and suctioned. The vaginal cuff and prior biopsy sites were hemostatic. The procedure was complete. The abdomen was desufflated laparoscope and trochars were removed. The skin was closed using 4-0 Monocryl by the student surgical or first assist registered nurse under my supervision. Steri-Strips and OpSite were placed over the incisions. The patient was placed into dorsal supine position, awakened, extubated and transferred to the recovery room without complication. Sponge, instrument and needle counts were correct x2. Patient tolerated the procedure well. - Complications None - Admit VTE Documentation VTE Present on Admission: No VTE Mechan Device Prophylaxis: SCD's VTE Pharm Prophylaxis ordered?: Yes
--- NOTE | 2020-08-13 15:48 | CPS ---
SMI placed in room. Pt not on floor at this time
[2020-08-13] MEDS: oxyCODONE 5 MG Tablet PO ×2 (18:04→22:21)
[2020-08-13] MEDS: Sertraline 50 MG Tablet 25 MG PO (18:06)
[2020-08-13] MEDS: hydrOXYzine PAM 25 MG Capsule PO (21:19)
[2020-08-13] MEDS: Gabapentin 300 MG Capsule PO (21:22)
[2020-08-14] VITALS (7 sets, daily range): BP systolic 100–111; BP diastolic 55–75; PULSE 63–85; RESP 16–17; TEMP 36.4–37.6; O2SAT 94–100
[2020-08-14] MEDS: oxyCODONE 5 MG Tablet PO ×3 (05:26→13:58)
[2020-08-14] MEDS: Acetaminophen 500 MG Tablet 1000 MG PO (05:26)
[2020-08-14] MEDS: Levothyroxine 112 MCG Tablet PO (05:28)
[2020-08-14 06:43] LABS: Hematocrit 33.4 % (37-47); Hemoglobin 10.5 g/dL (12.0-15.0); Mean Corp Hgb Conc 31.4 g/dL (32-36); Mean Corpuscular Hgb 25.5 pg (27.0-32.0); Mean Corpuscular Volume 81.3 fL (81-99); Mean Platelet Vol. 10.2 fl (6.2-12.0); Platelet Count 338 K/mm3 (150-450); RBC Distribution Width CV 13.4 % (11.6-14.6); RBC Distribution Width SD 39.9 fl (35.1-43.9); Red Blood Count 4.11 M/mm3 (4.2-5.4); White Blood Count 11.1 K/mm3 (4.4-11.0)
[2020-08-14 07:12] LABS: Creatinine, Serum 0.72 mg/dL (0.55-1.02); EST Glomerular Filtration Rate 103 mL/min (>60); Est Glom Filt Rate - Afr Amer 125 mL/min (>60); Estimated Creatinine Clearance 105.61 ml/min
[2020-08-14] MEDS: Lactated Ringers 1,000 ML 75 ML IV (08:23)
[2020-08-14] MEDS: Gabapentin 300 MG Capsule PO (10:50)
[2020-08-14] MEDS: Heparin Injection (Vial) 5,000 UNIT/ML VIAL 5000 UNIT SC (10:50)
--- NOTE | 2020-08-14 12:26 | PCM.DC.VHY ---
Discharge Diet: No Restrictions Discharge Activity: Return to Normal Activity, May not drive while taking narcotic pain medications., May Shower, - - No tub bath for 2 weeks May resume sexual activity in: 6 weeks Lifting Restrictions: 5-10 lb Call your doctor if your incision/area has: Continuous Slow Oozing, Increased Pain/ Swelling, Increased Redness Call your doctor if you observe: Fever of 101 or Higher, Inability to urinate, Inability to have a bowel movement, Using more than one pad per hour, Shortness of breath, Chest pain, Calf discomfort, Uncontrolled pain Suture Line Care: Avoid Pulling/Pushing Remove Dressing in (days):: 1 - Remove steristrip (mini bandaids) in 5 days Cleanse incision/area with: Soap & Water Instructions: ED [place] Catheter Care Additional Instructions: You may take Tylenol or Extra Strength Tylenol over the counter as needed for pain. Allergies/Adverse Reactions: Allergies azithromycin [From Zithromax Z-Ruiz] Allergy (Verified 08/04/20 08:50) Anaphylaxis bacitracin [From Neosporin (jqt-phn-invge)] Allergy (Verified 08/04/20 08:50) Swelling bacitracin zinc [From Neosporin (yan-tij-bqfqc)] Allergy (Verified 08/04/20 08:50) Swelling latex Allergy (Verified 08/04/20 08:50) Rash neomycin sulfate [From Neosporin (pxc-beg-robda)] Allergy (Verified 08/04/20 08:50) Swelling polymyxin B [From Neosporin (ysk-vnq-gqqvf)] Allergy (Verified 08/04/20 08:50) Swelling prednisone Allergy (Verified 08/04/20 08:50) Anaphylaxis EXCEDRIN Allergy (Uncoded 08/04/20 08:50) Anaphylaxis Medications to take at Discharge Verapamil HCl [Verapamil ER] 120 mg PO QHS 03/19/19 Hydroxyzine HCl 25 mg PO PRN PRN 10/06/19 Levothyroxine [Synthroid] 112 mcg PO DAILY@0600 03/02/20 Albuterol Inhaler [Ventolin Hfa] 1 - 2 puff INHALATION Q4H PRN PRN 08/04/20 Gabapentin [Neurontin] 300 mg PO BID 08/04/20 Multivitamin with Minerals [Hair, Skin and Nails] 1 ea PO DAILY 08/04/20 Rizatriptan Benzoate [Maxalt] 10 mg PO PRN PRN 08/04/20 Sertraline HCl [Zoloft] 25 mg PO 1500 08/04/20 Nitrofurantoin Monohyd/M-Cryst [Macrobid 100 mg Capsule] 100 mg PO BID #10 cap 08/14/20 Oxycodone [Oxyir] 5 mg PO Q6H PRN PRN 7 Days #30 tab 08/14/20 The following prescriptions were given: Nitrofurantoin Monohyd/M-Cryst [Macrobid 100 mg Capsule] 100 mg PO BID #10 cap Transmission Status: Pending to [facility] Oxycodone [Oxyir] 5 mg PO Q6H PRN PRN 7 Days #30 tab PRN Reason: Pain Score 4-10 Transmission Status: Received by [facility] Primary Care Physician: Kevin Stauffer MD [Primary Care Provider] - Test Results: Test results from this visit will be discussed in further detail at your follow-up appointment, if applicable. Please Follow Up With: Diana Steele MD When: 08/28/20 at 0845 am Please Follow Up With: Diana Steele MD - Call to schedule nurse visit for catheter removal When: Monday08/18/20
== END 2020-08-14 14:20 | disposition home or self-care (01) ==
LOC: SDC 14:41 → MS3 14:41
PROVIDERS: Anesthesiology; Admitting Provider Obstetrics & Gynecology; PCP Family Medicine; Referring Provider Obstetrics & Gynecology; Visit Provider Obstetrics & Gynecology
PROC: 0UT9FZZ Resection of Uterus, Via Natural or Artificial Opening With Percutaneous Endoscopic Assistance (ICD-10-PCS; CPT 58550; principal; 2020-08-13 09:45)
DX: N80.3 Endometriosis of pelvic peritoneum (principal); N80.0 Endometriosis of uterus; G89.29 Other chronic pain; Z20.828 Contact with and (suspected) exposure to other viral communicable diseases; N72 Inflammatory disease of cervix uteri; N94.6 Dysmenorrhea, unspecified; N94.10 Unspecified dyspareunia; N92.6 Irregular menstruation, unspecified; F41.9 Anxiety disorder, unspecified; F32.9 Major depressive disorder, single episode, unspecified; K21.9 Gastro-esophageal reflux disease without esophagitis; E05.00 Thyrotoxicosis with diffuse goiter without thyrotoxic crisis or storm; Z79.899 Other long term (current) drug therapy; Z87.891 Personal history of nicotine dependence
CPT/HCPCS: 00940; 58550; 36415; 80048; 80076; 82565; 84439; 84443; 84481; 85027; 85610; 85730; 86850; 86900; 86901; 87635; 88305; 88307; 93005; 96360; 96361; 99218; 99251; C9803; J7120; G0378; G0463; J2405; U0003

== ENCOUNTER → 2020-08-18 13:10 | Outpatient (CLI) | payer MEDICAID, SELFPAY ==
[2020-08-13 16:57] VITALS: BMI 25.7
[2020-08-18 13:14] LABS: Mucous, Urine 0 SEEN /hpf (<or=2+)
[2020-08-18 13:48] LABS: Absolute Lymphocyte Count 2.11 X10^3/uL (0.83-4.51); Basophil# 0.04 X10^3/uL; Basophil% 0.4 % (0-1); Eosinophil# 0.11 X10^3/uL; Eosinophils% 1.1 % (0-5); Hematocrit 40.8 % (37-47); Hemoglobin 12.6 g/dL (12.0-15.0); Lymphocyte # 2.11 X10^3/ul (4.0); Mean Corp Hgb Conc 30.9 g/dL (32-36); Mean Corpuscular Hgb 24.9 pg (27.0-32.0); Mean Corpuscular Volume 80.6 fL (81-99); Mean Platelet Vol. 10.1 fl (6.2-12.0); Monocyte# 0.75 X10^3/uL; Monocyte% 7.5 % (0-10); NRBC Flagged by Analyzer 0 % (0-5); Neutrophil # 6.99 X10^3/uL (2.7-7.7); Neutrophil % 69.6 % (47-70); Platelet Count 398 K/mm3 (150-450); RBC Distribution Width CV 13.4 % (11.6-14.6); RBC Distribution Width SD 38.7 fl (35.1-43.9); Red Blood Count 5.06 M/mm3 (4.2-5.4)
[2020-08-18 13:51] LABS: Color, Urine Yellow (Yellow); Glucose, Dipstick Normal (Normal); Ketone-Dipstick Negative (Negative); Leukocyte Esterase-Dipstick 500 /ul (Negative); Nitrite-Dipstick Negative (Negative); Occult Blood-Urine 250 /ul (Negative); Protein-Dipstick 15 mg/dl (Negative); Specific Gravity, Urine 1.015 (1.002-1.030); Urine Bilirubin Dipstick Negative (Negative); Urine Clarity Clear (Clear); Urine Urobilinogen Normal (Normal)
[2020-08-18 13:59] LABS: Red Blood Cells-Urine 0-5 SEEN /hpf (0-5); White Blood Cells 50-100 SEEN /hpf (0-5)
[2020-08-18 14:00] LABS: Bacteria 2+ /hpf (None Seen); Squamous Epithelial Cells - UA 10-25 SEEN /hpf (5-10)
== END ==
PROVIDERS: PCP Family Medicine; Visit Provider Obstetrics & Gynecology
DX: Z98.890 Other specified postprocedural states (principal)
CPT/HCPCS: 81001; 85025; 87077; 87086; 87088; 87186

== ENCOUNTER → 2020-09-25 10:54 | Outpatient (CLI) | payer MEDICAID, SELFPAY ==
[2020-08-13 16:57] VITALS: BMI 25.7
[2020-09-25 10:58] LABS: Bacteria 0 SEEN /hpf (None Seen); Mucous, Urine 0 SEEN /hpf (<or=2+); White Blood Cells 0 SEEN /hpf (0-5)
[2020-09-25 11:31] LABS: Color, Urine Yellow (Yellow); Glucose, Dipstick Normal (Normal); Ketone-Dipstick Negative (Negative); Leukocyte Esterase-Dipstick Negative /ul (Negative); Nitrite-Dipstick Negative (Negative); Occult Blood-Urine 25 /ul (Negative); Protein-Dipstick Negative (Negative); Urine Bilirubin Dipstick Negative (Negative); Urine Clarity Cloudy (Clear); Urine Urobilinogen Normal (Normal)
[2020-09-25 11:43] LABS: Red Blood Cells-Urine 0-5 SEEN /hpf (0-5); Squamous Epithelial Cells - UA 0-5 SEEN /hpf (5-10)
[2020-09-25 11:44] LABS: Amorphous Sediment 1+
== END ==
PROVIDERS: PCP Family Medicine; Visit Provider Obstetrics & Gynecology
DX: R31.9 Hematuria, unspecified (principal)
CPT/HCPCS: 81001; 87086; 87088

== ENCOUNTER → 2020-10-22 07:17 | Outpatient (CLI) | payer MEDICAID, SELFPAY ==
[2020-08-13 16:57] VITALS: BMI 25.7
[2020-10-22 08:37] LABS: Estradiol 64.7 pg/mL; Follicle Stimulating Hormone 7.7 mIU/mL
== END ==
PROVIDERS: PCP Family Medicine; Referring Provider Obstetrics & Gynecology; Visit Provider Obstetrics & Gynecology
DX: Z13.31 Encounter for screening for depression (principal); Z51.81 Encounter for therapeutic drug level monitoring
CPT/HCPCS: 36415; 82670; 83001

== ENCOUNTER 2020-11-11 16:45 | Emergency (ER) | payer MEDICAID, SELFPAY ==
[2020-08-13 16:57] VITALS: BMI 25.7
[2020-11-11 16:46] VITALS: BP 123/85; PULSE 106; RESP 16; TEMP 36.8; O2SAT 100; BMI 24.7
--- NOTE | 2020-11-11 16:59 | CT_ITS ---
STUDY: CT BRAIN WITHOUT CONTRAST REASON FOR EXAM: Female, 25 years old. HEADACHE, PARAESTHESIAS RADIATION DOSAGE (If Supplied By Facility): CTDIvol = ( 44.99 ) mGy, DLP = ( 779.24 ) mGycm TECHNIQUE: Transaxial CT imaging of the brain was performed without administration of intravenous contrast material. Individualized dose optimization techniques were used for this CT. COMPARISON: 06/08/2019 FINDINGS: Normal soft tissue structures. Normal calvarium. Normal size ventricles and extra-axial spaces for the patient''s age. Normal white matter tracts of the cerebral hemispheres. Normal basal ganglia and thalami. Normal brainstem. Normal cerebellum. There is no intracranial hemorrhage. There are no findings of an acute ischemic infarction. Normal visualized paranasal sinuses. CT/Brain/Head without Contrast IMPRESSION: Normal unenhanced CT scan of the brain. Electronically Signed: Chivo Yee MD at 17:33 EST Tel , Service support ,
--- NOTE | 2020-11-11 17:01 | ED.DCSUM_ITS ---
- ER Visit Summary Date of Service: 11/11/20 Chief Complaint: [Headache and numbness and tingling to left side of body] History of Present Illness: The patient is a 25 F [resents to the emergency department with complaint of an odd sensation that started around 3 PM where she just felt strange and lightheaded. Patient states that she then felt somewhat confused. Patient developed pain behind her left thigh and then numbness and tingling to the left side of her body. Patient states that she has had similar episodes like this since August. Patient currently seeing a neurologist and they are evaluating possibility of migraine versus seizure disorder. Patient does have remote history of seizures. Patient 5 days ago was started on Depakote. Patient does complain of photophobia with her headache. Patient denies any nausea or vomiting. Patient denies any urinary symptoms. Patient does have history of graves disease is remote. She has had prior hysterectomy.] Patient states that she has an EEG scheduled for November and also has MRIs of the brain and spine ordered for next Monday. Physical Examination: [HEENT-PERRLA, EOMI. Cranial nerves II through XII grossly intact. TMs clear. Mucous membranes moist. No adenopathy. Cardiovascular-regular rate and rhythm without murmur or ectopy Lungs-clear to auscultation, chest wall stable without crepitus or subcu emphysema Abdomen-normoactive bowel sounds, soft, nontender, no rebound or rigidity, no peritoneal signs. Neuro crhc-qfmnyi-xyyl and heel honeycutt testing within normal limits, negative Romberg, negative for drift, fundi benign patient has normal strength in the upper and lower extremities. She does complain of paresthesias to the left arm and left leg. There is no evidence of facial droop. Extremities-intact ?4, normal range of motion, normal pulses, atraumatic] Test Results: [CBC with differential was normal. Chemistries unremarkable. Valproic acid level was 59. CT scan of the brain without contrast was normal.] Emergency Department Course and Treatment: [The line established on arrival. Patient was given a liter normal same fluid bolus as well as Reglan, Benadryl, and Toradol. On repeat examination patient's headaches mostly resolved at this point she is resting comfortably in bed and states that her paresthesias have resolved.] Treatment Plan: [Patient to follow-up with her neurologist and to continue to have further work-up such as MRI and EEG. I suspect patient likely having complex migraines.] Disposition: [Discharged home in stable condition] Impression: [Complex migrainous cephalgia-resolved] This note was generated with [employer] dictation software. It may contain incorrect words, spelling, and punctuation that were not noted in review of the chart prior to signing ED Disposition - Plan for ED Patient: Referrals: Kevin Stauffer MD [Primary Care Provider] -
[2020-11-11] MEDS: 0.9% Normal Saline 1,000 ML 1000 ML IV (17:11)
[2020-11-11] MEDS: Metoclopramide 10 MG/2 ML Vial IV (17:12)
[2020-11-11] MEDS: DiphenhydrAMINE 50 MG/ML Syringe 25 MG IV (17:12)
[2020-11-11] MEDS: Ketorolac 30 MG/ML Syringe IV (17:12)
[2020-11-11 17:19] LABS: Absolute Lymphocyte Count 2.41 X10^3/uL (0.83-4.51); Absolute Neutrophil Count 3.2 X10^3/uL (2.0-7.7); Basophil# 0.03 X10^3/uL; Basophil% 0.5 % (0-1); Eosinophil# 0.08 X10^3/uL; Eosinophils% 1.3 % (0-5); Hematocrit 37.4 % (37-47); Hemoglobin 11.9 g/dL (12.0-15.0); Lymphocyte # 2.41 X10^3/ul (4.0); Lymphocyte % 38.3 % (19-41); Mean Corp Hgb Conc 31.8 g/dL (32-36); Mean Corpuscular Hgb 25.5 pg (27.0-32.0); Mean Corpuscular Volume 80.1 fL (81-99); Mean Platelet Vol. 10.2 fl (6.2-12.0); Monocyte# 0.58 X10^3/uL; Monocyte% 9.2 % (0-10); NRBC Flagged by Analyzer 0 % (0-5); Neutrophil # 3.19 X10^3/uL (2.7-7.7); Neutrophil % 50.5 % (47-70); Platelet Count 346 K/mm3 (150-450); RBC Distribution Width CV 14.5 % (11.6-14.6); RBC Distribution Width SD 42.5 fl (35.1-43.9); Red Blood Count 4.67 M/mm3 (4.2-5.4); White Blood Count 6.3 K/mm3 (4.4-11.0)
[2020-11-11 17:27] LABS: Anion Gap 5 (5-15); BUN 5 mg/dL (7-18); BUN/Creat Ratio 5.9 RATIO (10-20); Calcium,Total 8.7 mg/dL (8.5-10.1); Chloride 107 mmol/L (98-107); Creatinine, Serum 0.84 mg/dL (0.55-1.02); EST Glomerular Filtration Rate 86 mL/min (>60); Est Glom Filt Rate - Afr Amer 104 mL/min (>60); Estimated Creatinine Clearance 94.18 ml/min; Glucose 105 mg/dL (74-106); Potassium 3.7 mmol/L (3.5-5.1); Sodium Level 139 mmol/L (136-145)
[2020-11-11 17:30] LABS: Valproic Acid (Depakene) Level 59 ug/mL (50-100)
--- NOTE | 2020-11-11 18:47 | ED.DEP ---
ED Disposition - Plan for ED Patient: Instructions: ED, Migraine (Classical) Referrals: Kevin Stauffer MD [Primary Care Provider] - Additional Instructions: see your neurologist
[2020-11-11 18:56] VITALS: BP 124/77; PULSE 62; RESP 15; O2SAT 98
== END 2020-11-11 18:56 | disposition home or self-care (01) ==
LOC: ED 17:39
PROVIDERS: Emergency Provider Emergency Medicine; PCP Family Medicine
DX: R51.9 Headache, unspecified (principal)
CPT/HCPCS: 70450; 80048; 80164; 85025; 96361; 96374; 96375; 99285; J7030; A4216

== ENCOUNTER → 2020-11-24 10:54 | Outpatient (CLI) | payer MEDICAID, SELFPAY ==
[2020-11-11 16:46] VITALS: BMI 24.7
[2020-11-24 11:18] LABS: Mucous, Urine 0 SEEN /hpf (<or=2+); White Blood Cells 0 SEEN /hpf (0-5)
[2020-11-24 14:27] LABS: Color, Urine Yellow (Yellow); Glucose, Dipstick Normal (Normal); Ketone-Dipstick 5 mg/dl (Negative); Leukocyte Esterase-Dipstick Negative /ul (Negative); Nitrite-Dipstick Negative (Negative); Occult Blood-Urine 50 /ul (Negative); Protein-Dipstick Negative (Negative); Urine Bilirubin Dipstick Negative (Negative); Urine Clarity Sl. Cloudy (Clear); Urine Urobilinogen Normal (Normal)
[2020-11-24 14:43] LABS: Bacteria 1+ /hpf (None Seen); Red Blood Cells-Urine 0-5 SEEN /hpf (0-5); Squamous Epithelial Cells - UA 0-5 SEEN /hpf (5-10)
== END ==
PROVIDERS: PCP Family Medicine; Visit Provider Obstetrics & Gynecology
DX: R30.0 Dysuria (principal)
CPT/HCPCS: 81001; 87086

== ENCOUNTER → 2020-12-18 08:49 | Outpatient (CLI) | payer MEDICAID, SELFPAY ==
[2020-08-13 16:57] VITALS: BMI 25.7
[2020-12-11 13:47] VITALS: BMI 25.3
--- NOTE | 2020-12-18 10:58 | TELEMED_ITS ---
[facility] has confirmed receipt of a request for visit. This document confirms receipt of the order initiating the consult. To find the results of the consultation, please view the patient's reports for the scanned Telemed Consult.
== END ==
PROVIDERS: PCP Family Medicine; Referring Provider Psychiatry & Neurology Sleep Medicine; Visit Provider Psychiatry & Neurology Sleep Medicine
DX: R56.9 Unspecified convulsions (principal); R20.0 Anesthesia of skin; R53.1 Weakness; Z87.898 Personal history of other specified conditions
CPT/HCPCS: 95819

== ENCOUNTER 2020-12-28 06:01 | Day surgery (SDC) | payer MEDICAID, SELFPAY ==
[2020-12-11 13:47] VITALS: BMI 25.3
[2020-12-23 13:29] LABS: Hematocrit 38.4 % (37-47); Hemoglobin 11.8 g/dL (12.0-15.0); Mean Corp Hgb Conc 30.7 g/dL (32-36); Mean Corpuscular Hgb 25.2 pg (27.0-32.0); Mean Corpuscular Volume 82.1 fL (81-99); Mean Platelet Vol. 10.4 fl (6.2-12.0); Platelet Count 347 K/mm3 (150-450); RBC Distribution Width CV 14.2 % (11.6-14.6); RBC Distribution Width SD 42.3 fl (35.1-43.9); Red Blood Count 4.68 M/mm3 (4.2-5.4); White Blood Count 6.2 K/mm3 (4.4-11.0)
[2020-12-23 13:41] LABS: International Normalized Ratio 1.1; Prothrombin Time (Protime)PT. 13.3 SECONDS (11.7-14.9)
[2020-12-23 13:42] LABS: Partial Thromboplast Time 30.3 Seconds (24.1-36.2)
[2020-12-23 13:54] LABS: Valproic Acid (Depakene) Level 73 ug/mL (50-100)
[2020-12-23 13:58] LABS: Creatinine, Serum 0.63 mg/dL (0.55-1.02); EST Glomerular Filtration Rate 121 mL/min (>60); Est Glom Filt Rate - Afr Amer 146 mL/min (>60); Thyroid Stim Hormone (TSH) 0.28 uIU/mL (0.358-3.74)
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
[2020-12-28] VITALS (7 sets, daily range): BP systolic 95–115; BP diastolic 60–89; PULSE 66–89; RESP 14–18; TEMP 36.8–37.1; O2SAT 94–100; BMI 24.7
--- NOTE | 2020-12-28 | APP_PTH ---
PATIENT: SONIA SZYMANSKI [place] [facility] [place][id number] AGE/SX: 25/F ROOM: RE12/28/[address]: Dr. Jamil Martinez MD : 1995 BED: DIS: 12/28/2020 SPEC #: [id number] RECD: 12/28/20 12:52 STATUS: CHRIS REJamir #: [id number] LENORA: 12/28/20 00:[address]: Jamil Martinez DEPT: SURGICAL PATHOLOGY RECD BY: Robby Robles ENTERED: 12/28/20 12:52 SP TYPE: APPENDIX OTHR DR: MD Dr. Catrachito Ribeiro MD Dr. William Lago, MD Tissues: A - Appendix, NOS B - Right ovary Procedures: Surgery Specimen Level III Surgery Specimen Level IV HEADER OPERATION: Laparoscopic oophorectomy PRE-OP DIAGNOSIS: Abdominal pain right lower quadrant, recurrent endometriosis TISSUE SUBMITTED: A - Appendix, B - Right ovary MICROSCOPIC DIAGNOSIS A. Appendix, appendectomy: Appendix, no pathologic diagnosis. See comment. B. Right ovary, oophorectomy: Physiologic follicular and corpus luteal cysts. Focal minimal mesothelial inclusion cysts. See comment. SJ:mariella 12/29/2020 COMMENT A. The entire appendix is examined. No evidence of acute inflammation in the lumen or appendicular wall. B. The entire specimen is examined. Changes consistent with endometriosis are not seen. Correlation with clinical findings and appropriate follow up are necessary. Case has been reviewed in consultation with Dr. Wheeler who concurs with the above diagnosis. IDC:AM MICROSCOPIC DESCRIPTION Slides are reviewed. GROSS DESCRIPTION A - Received in fixative is one container labeled with the patient's name and designated appendix. The specimen consists of an appendix measuring 5 cm in length and up to 0.6 cm in diameter. The attached periappendiceal adipose tissue measures up to 1.5 cm in width. The serosa is mildly congested. No obvious perforation is identified. The lumen contains fecal material. No fecalith is identified. The entire appendix is submitted in two cassettes as follows: 1 - proximal portion and tip, 2 - rest of the appendix. B - Received in fixative is one container labeled with the patient's name and designated right ovary. The specimen consists of an ovary in multiple pieces measuring in aggregate 4 x 3 x 1.5 cm. A hemorrhagic corpus luteum is noted measuring 0.5 cm in greatest dimension. No obvious mass lesion is identified. The entire specimen is submitted in four cassettes. / SJ:mariella 12/28/20 TC:4 CPT: 82996, 54072
[2020-12-28] MEDS: Lactated Ringers 1,000 ML 100 ML IV ×2 (06:49→08:15)
--- NOTE | 2020-12-28 07:14 | PCM.HP.BLA ---
Problem List (1) RLQ abdominal pain Status: Acute History and Physical Date of Admission: 12/28/20 Intake Vital Signs 12/11/20 Height 5 ft 5 in 12/11/20 Weight: 152 lb 8 oz 12/11/20 BP 112/78 12/11/20 Blood Pressure Location Rt brachial 12/11/20 Position Sitting 12/11/20 Respiration 20 H 12/11/20 Pulse 115 H 12/11/20 Pulse Source NIBP 12/11/20 Temp 98.2 F 12/11/20 Temp Source Temporal 12/11/20 Pulse Oximetry (%) 97 12/11/20 Oxygen Delivery Method room air Intake Visit Reasons: APPY, COMBINED SURGERY Chief Complaint: elective appy [employer] Required: No Is patient in pain?: No Allergies azithromycin [From Zithromax Z-Ruiz] Allergy (Verified 12/11/20 13:48) Anaphylaxis bacitracin [From Neosporin (cnl-hky-pdxhi)] Allergy (Verified 12/11/20 13:48) Swelling bacitracin zinc [From Neosporin (dhu-syj-qnokb)] Allergy (Verified 12/11/20 13:48) Swelling latex Allergy (Verified 12/11/20 13:48) Rash neomycin sulfate [From Neosporin (yzi-cwi-giwef)] Allergy (Verified 12/11/20 13:48) Swelling polymyxin B [From Neosporin (yld-ukm-fvwvq)] Allergy (Verified 12/11/20 13:48) Swelling prednisone Allergy (Verified 12/11/20 13:48) Anaphylaxis EXCEDRIN Allergy (Uncoded 08/04/20 08:50) Anaphylaxis Medications Verapamil HCl [Verapamil ER] 120 mg PO QHS 03/19/19 [History Confirmed 12/11/20] Hydroxyzine HCl 25 mg PO PRN PRN 10/06/19 [History Confirmed 12/11/20] Levothyroxine [Synthroid] 112 mcg PO DAILY@0600 03/02/20 [History Confirmed 12/11/20] Albuterol Inhaler [Ventolin Hfa] 1 - 2 puff INHALATION Q4H PRN PRN 08/04/20 [History Confirmed 12/11/20] Gabapentin [Neurontin] 300 mg PO TID 08/04/20 [History Confirmed 12/11/20] Multivitamin with Minerals [Hair, Skin and Nails] 1 ea PO DAILY 08/04/20 [History Confirmed 12/11/20] Sertraline HCl [Zoloft] 25 mg PO 1500 08/04/20 [History Confirmed 12/11/20] divalproex 500 mg tablet,delayed release 500 mg PO QDAY tab 12/11/20 [History Confirmed 12/11/20] nitroglycerin 0.3 mg sublingual tablet 0.3 mg SUBLINGUAL Q5M PRN 12/11/20 [History Confirmed 12/11/20] Is last menstrual period known: No Post menopausal: No Patient : No PFSH Medical History (Updated 12/11/20 @ 13:45 by Nayeli Casarez) Anxiety and depression (Acute) Seizure (Acute) Graves disease (Acute) Chronic female pelvic pain (Chronic) Adenomyosis (Acute) Endometriosis determined by laparoscopy (Acute) Abnormal uterine bleeding (AUB) (Acute) Migraine (Chronic) Mild intermittent asthma (Chronic) Surgical History (Updated 12/11/20 @ 13:46 by Nayeli Casarez) History of section (Acute) History of laparoscopic-assisted vaginal hysterectomy (Acute) History of laparoscopy (Acute) History of left salpingo-oophorectomy (Acute) History of thyroidectomy (Acute) History of tubal ligation (Acute) History of wisdom tooth extraction (Acute) Family History (Updated 12/11/20 @ 13:47 by Nayeli Casarez) Uncle Diabetes Cancer lung Father Diabetes Grandfather CVA (cerebral vascular accident) Cancer lung, unsure additional type Uncle Cancer brain Grandmother Cancer lung and unsure additional type Social History (Updated 12/11/20 @ 16:[address] Gabino Chavez MD) Smoking Status: Former smoker HPI HPI HPI: SONIA SZYMANSKI, is a 25 F who presents to the office today for HPI HPI Surgical H&P: Yes HPI: SONIA SZYMANSKI, is a 25 F who presents to the office today for right lower quadrant pain. The patient was referred for appendectomy during right oophorectomy. The patient is undergoing a right oophorectomy for multiple cysts in the right ovary as well as right lower quadrant pain. Patient has been having sharp pain for several months. ROS General General: No weight change, appetite, fatigue, colon cancer, breast cancer or weakness HEENT HEENT: No difficulty swallowing, eye injury, eye surgery, swollen glands or hoarseness Endo Endocrine: Yes thyroid disease; no diabetes mellitus, thyroid cancer, Hair loss, heat intolerance or cold intolerance Musc Musculoskeletal: No back problems, arthritis, rheumatoid arthritis, gout or joint pain Cardio Cardiovascular: No murmur, pacemaker, heart disease, atrial fibrillation, high blood pressure, heart attack, heart stent, palpitations, shortness of breat with exertion or chest pain Psych Psychiatric: Yes depression and anxiety; no hearing voices Resp Respiratory: Yes shortness of breath, No sleep apnea, No cough, No COPD, Yes asthma, No emphysema, No wheezing Gastro Gastrointestinal: Yes abdominal pain, No nausea or vomiting, Yes diarrhea, No constipation, No blood in stool, No acid reflux, No hemorrhoids, Yes ulcers, No gallbladder problem, No black,tarry stools Kelvin Hematologic: No blood thinners, No blood disorders, No bleeding, No anemia, No blood clots Neuro Neurologic: No weakness Exam Const General: cooperative Orientation: alert, oriented x3 Resp Effort & Inspection: normal respiratory effort Auscultation: clear to auscultation bilaterally Cardio Rate: regular rate Rhythm: regular rhythm Heart Sounds: no murmurs GI Inspection: non-distended Palpation: soft, nontender Assessment & Plan Problems 1. RLQ abdominal pain R10.31 Plan The patient is having severe right lower quadrant pain and is scheduled to undergo a right oophorectomy. The patient requests appendectomy during time of surgery. I discussed this with her and I discussed the risks of bleeding, infection, injury to surrounding organs. Patient understands risks and would like appendectomy during the time of oophorectomy to remove appendicitis from her differential diagnosis in the future. Gabino Chavez MD Pager: [facility] [address] [place] [address], [address] [place] [address] Office: I have seen and reexamined the patient and there are no changes.
[2020-12-28] MEDS: Cefotetan 2 GM in 0.9% NS 100 ML IV (07:34)
[2020-12-28] MEDS: Ropivacaine 0.5% 30 ML Vial (07:50)
--- NOTE | 2020-12-28 08:18 | OP.PCM_ITS ---
Report of Operation Date of Procedure: 12/28/20 Pre-Operative Diagnosis: Right Lower Quadrant Pain and Endometriosis Post-Operative Diagnosis: Right Lower Quadrant Pain and Endometriosis Surgery/Procedure Performed:: Laparoscopic Right Oophorectomy and Appendectomy Description of Surgical Findings:: Normal-appearing right ovary with absent fallopian tubes, uterus, and left ovary. Normal-appearing appendix. Powder burn implant of endometriosis near the right ovary. panel wirer: Ryan Mcintyre Type of Anesthesia:: General - Endotracheal Anesthesiologist: Arthur Lowery Specimen's removed: Right ovary and appendix Estimated Blood Loss (mL): Minimal Fluids Replaced: Crystalloid Description of Procedure: Surgeon: Jamil Martinez MD, FACOG Co-surgeon: Gabino Chavez MD, FACS Indications: This is a 25 year old patient who has the above diagnosis. She had a prior hysterectomy and left salpingo-oophorectomy and right salpingectomy. She understands that this procedure may not help with her right lower quadrant pain and understands that with the right ovary removed that she will be surgically menopausal which may require hormone replacement therapy for an indefinite period of time. All questions were answered to consider the patient well-informed. Procedure: The patient was taken to the operating room where after induction of general anesthesia, she was placed in the dorsolithotomy position and prepped and draped in the usual sterile fashion. The bladder was drained of approximately 50 cc of clear yellow urine with a catheter. Approximately 20 cc of half percent ropivacaine was injected subumbilically, suprapubically and midway between. A 5 mm bladeless trocar was placed subumbilically and intraperitoneal placement confirmed. After CO2 insufflation was complete, a 5 mm bladeless trocar and eventually a 10/12 mm trocar was introduced suprapubically. The above findings were noted. A 5 mm bladeless port was then placed midway between these 2 ports for manipulation. The right ovary was identified and noted to be free of the pelvic sidewall. The infundibulopelvic ligament was divided with an Enseal device without difficulty and ovary removed in pieces through the 10/12 mm port without difficulty. Hemostasis was noted and the single spot of powder burn endometriosis was cauterized with the Enseal device. At this time in the procedure Dr. Gabino Chavez was present and performed the appendectomy which is dictated separately. Laparoscopic instruments with as much CO2 gas as possible were removed and incisions were closed with interrupted 4-0 Monocryl suture. Steri-Strips placed across the incision. The patient tolerated the procedure well was taken to recovery room in satisfactory condition and sponge instrument and needle counts were all reportedly correct. Estimated blood loss for the case was minimal. There were no apparent complications of the surgery. Specimens to pathology was right ovary and appendix Grafts/Implants Used: None - Complications None - Admit VTE Documentation VTE Present on Admission: Yes VTE Mechan Device Prophylaxis: SCD's
--- NOTE | 2020-12-28 08:30 | PCM.DC.TUB ---
Discharge Diet: No Restrictions - Increase fluid intake for the next 48 hours. Discharge Activity: Return to Normal Activity, May Drive - when you are no longer taking pain/narcotic medicines., May Shower, May Take a Tub Bath May resume sexual activity in: 3 weeks Additional Activity Instructions:: Ambulate often the next week after surgery. Nothing in the vagina for 5 days. Call your doctor if your incision/area has: Continuous Slow Oozing, Sudden Increased Bleeding, Increased Pain/ Swelling, Increased Redness, Foul Smelling Discharge Call your doctor if you observe: Fever of 101 or Higher, Inability to urinate, Inability to have a bowel movement, Using more than one pad per hour Allergies/Adverse Reactions: Allergies azithromycin [From Zithromax Z-Ruiz] Allergy (Verified 12/28/20 06:23) Anaphylaxis bacitracin [From Neosporin ([id number]-[id number])] Allergy (Verified 12/28/20 06:23) Swelling bacitracin zinc [From Neosporin (ijf-ohn-wzxps)] Allergy (Verified 12/28/20 06:23) Swelling latex Allergy (Verified 12/28/20 06:23) Rash neomycin sulfate [From Neosporin ([id number]-wkp-[id number])] Allergy (Verified 12/28/20 06:23) Swelling polymyxin B [From Neosporin ([id number]-ail-[id number])] Allergy (Verified 12/28/20 06:23) Swelling prednisone Allergy (Verified 12/28/20 06:23) Anaphylaxis EXCEDRIN Allergy (Uncoded 12/28/20 06:23) Anaphylaxis Medications to take at Discharge Verapamil HCl [Verapamil ER] 120 mg PO QHS 03/19/19 Hydroxyzine HCl 25 mg PO PRN PRN 10/06/19 Levothyroxine [Synthroid] 112 mcg PO DAILY@0600 03/02/20 Albuterol Inhaler [Ventolin Hfa] 1 - 2 puff INHALATION Q4H PRN PRN 08/04/20 Gabapentin [Neurontin] 300 mg PO TID 08/04/20 Multivitamin with Minerals [Hair, Skin and Nails] 1 ea PO DAILY 08/04/20 Sertraline HCl [Zoloft] 25 mg PO QHS 08/04/20 divalproex 500 mg tablet,delayed release 500 mg PO QHS tab 12/11/20 nitroglycerin 0.3 mg sublingual tablet 0.3 mg SUBLINGUAL Q5M PRN 12/11/20 Calcium/Soy/Cohosh/Melatonin [Estroven Nighttime Caplet] 1 ea PO QHS 12/21/20 Estradiol 2 mg PO DAILY #100 tab 12/28/20 Oxycodone [Oxyir] 5 mg PO Q6H PRN PRN 7 Days #5 tablet 12/28/20 The following prescriptions were given: Estradiol 2 mg PO DAILY #100 tab Transmission Status: Pending to [facility] Oxycodone [Oxyir] 5 mg PO Q6H PRN PRN 7 Days #5 tablet PRN Reason: Pain Score 6-10 Transmission Status: Sent to [facility] Primary Care Physician: Kevin Stauffer MD [Primary Care Provider] - Test Results: Test results from this visit will be discussed in further detail at your follow-up appointment, if applicable. Please Follow Up With: Jamil Martinez MD - [phone] When: 2-3 weeks
[2020-12-28] MEDS: Acetaminophen 325 MG Tablet 650 MG PO (09:43)
[2020-12-28] MEDS: oxyCODONE 5 MG Tablet PO (09:43)
--- NOTE | 2020-12-28 10:03 | PCM.OPRPT ---
Problem List (1) RLQ abdominal pain Status: Acute Report of Operation Date of Procedure: 12/28/20 Pre-Operative Diagnosis: Chronic right lower quadrant pain Post-Operative Diagnosis: Same Surgery/Procedure Performed:: Laparoscopic appendectomy Specimen's removed: Appendix Description of Procedure: The patient underwent laparoscopic right oophorectomy by Dr. Martinez. At the end of his portion of procedure I took over the operation. I located the appendix in the right lower quadrant and grasped and elevated. The mesoappendix was taken down using Enseal. The base of the appendix was stapled across and the appendix was placed into a bag and it was removed through the 12 mm port. The air was then allowed to desufflate from the abdomen and the ports were removed. An 0 Vicryl suture was used to close the anterior fascia at the large port site. All the incisions were injected with local anesthesia and closed with interrupted 4-0 Monocryl sutures. Steri-Strips and bandages were applied and patient was awoken and taken to PACU in stable condition. - Admit VTE Documentation VTE Mechan Device Prophylaxis: SCD's
== END 2020-12-28 10:37 | disposition home or self-care (01) ==
LOC: SDC 06:01 → AC 06:02
PROVIDERS: Anesthesiology; Surgery; PCP Family Medicine; Referring Provider Anesthesiology; Visit Provider Obstetrics & Gynecology
PROC: (CPT 58720; principal; 2020-12-28 07:10)
PROC: 0DTJ4ZZ Resection of Appendix, Percutaneous Endoscopic Approach (ICD-10-PCS; CPT 44970; 2020-12-28 07:10)
DX: N83.11 Corpus luteum cyst of right ovary (principal); N80.3 Endometriosis of pelvic peritoneum; Z20.828 Contact with and (suspected) exposure to other viral communicable diseases; N83.291 Other ovarian cyst, right side; Z79.899 Other long term (current) drug therapy; J45.909 Unspecified asthma, uncomplicated; F32.9 Major depressive disorder, single episode, unspecified; Z87.891 Personal history of nicotine dependence; F41.9 Anxiety disorder, unspecified; K21.9 Gastro-esophageal reflux disease without esophagitis
CPT/HCPCS: 00840; 44970; 58661; 36415; 80164; 82565; 84443; 85027; 85610; 85730; 86850; 86900; 86901; 87426; 88304; 88305; C9803; J7120; C1760; J2405

== ENCOUNTER 2021-02-02 09:41 | Emergency (ER) | payer MEDICAID, SELFPAY ==
[2020-12-28 06:27] VITALS: BMI 24.7
[2021-02-02 09:42] VITALS: BP 141/82; PULSE 85; RESP 16; TEMP 35.8; O2SAT 99; BMI 24.7
--- NOTE | 2021-02-02 09:58 | CT_ITS ---
STUDY: CT ABDOMEN AND PELVIS WITHOUT CONTRAST REASON FOR EXAM: Female, 25 years old. Left flank pain. Recent appendectomy and ovarian surgery. RADIATION DOSAGE (If Supplied By Facility): CTDIvol = ( 6.34 ) mGy, DLP = ( 306.15 ) mGycm TECHNIQUE: Transaxial images were obtained from the dome of the diaphragm to the symphysis pubis without oral contrast, and without intravenous contrast. Sagittal and coronal images were reconstructed. Individualized dose optimization techniques were used for this CT. COMPARISON: Comparison is made with prior study dated 12/09/2018. FINDINGS: The visualized lung bases are unremarkable. The visualized portions of the heart are within normal limits. Normal liver. Mild degree of increased density within the gallbladder lumen suggestive of either tiny gallstones or sludge. There are multiple benign calcified granulomata of the spleen. Normal pancreas. Normal bilateral adrenal glands. Normal right kidney. Normal left kidney. There is a small hiatal hernia. Normal small intestine. There are scattered colonic diverticula consistent with diverticulosis. There are surgical clips in the region of the appendix consistent with a prior appendectomy. Normal abdominal aorta. Normal inferior vena cava. There is borderline retroperitoneal lymphadenopathy with enlarged nodes no greater than 10mm in the short axis diameter. Normal urinary bladder. There is absence of the uterus consistent with a prior hysterectomy. Mild degree of increased markings are seen in the subcutaneous fat overlying the lower anterior abdominal wall most likely secondary to prior surgery. Normal osseous structures. CT/Abdomen/Pelvis without Cont IMPRESSION: Increased density within the gallbladder lumen suggestive of either gallstones or sludge. Correlation with ultrasound is recommended if clinically indicated. No acute abnormality is seen. Electronically Signed: Lonnie Kim MD at 11:06 EDT , Service support ,
--- NOTE | 2021-02-02 09:59 | ED.DCSUM_ITS ---
History of Present Illness Chief Complaint: Flank Pain Informant: Patient Onset: Today Current Severity: Moderate Maximum Severity: Moderate Narrative: Patient presents with dysuria and left flank pain. Patient states symptoms started at 4 AM this morning. This woke her from sleep. When she initially urinated this morning she did have some blood in her urine. Patient has had a hysterectomy in the past. 5 weeks ago she had her right ovary removed and appendectomy. Patient does state that after her surgeries she had difficulty passing urine and had to go home with a catheter. No fever or chills. She does have a history of kidney stones as well. - Past Medical History (1) Anxiety and depression Status: Chronic (2) Seizure Status: Chronic (3) Migraine Status: Chronic (4) Mild intermittent asthma Status: Chronic Past Medical History - Allergies and Home Meds Allergies/Adverse Reactions: Allergies azithromycin [From Zithromax Z-Ruiz] Allergy (Verified 02/02/21 09:44) Anaphylaxis bacitracin [From Neosporin (sev-amq-zpege)] Allergy (Verified 02/02/21 09:44) Swelling bacitracin zinc [From Neosporin (hjv-kcd-wvdid)] Allergy (Verified 02/02/21 09:4 4) Swelling latex Allergy (Verified 02/02/21 09:44) Rash neomycin sulfate [From Neosporin (zfv-dhs-pfewk)] Allergy (Verified 02/02/21 09:44) Swelling polymyxin B [From Neosporin (zvw-jyz-rhfqx)] Allergy (Verified 02/02/21 09:44) Swelling prednisone Allergy (Verified 02/02/21 09:44) Anaphylaxis EXCEDRIN Allergy (Uncoded 02/02/21 09:44) Anaphylaxis Primary Care Physician: Kevin Stauffer MD [Primary Care Provider] - 1 Week Prior records reviewed: Yes Surgical History: no surgical history Lives: With Family Smoking Status: Former smoker - Family History Maternal Family History: Family History (Last Updated 12/11/20 @ 13:47 by Nayeli Casarez) Uncle Diabetes Cancer Father Diabetes Grandfather CVA (cerebral vascular accident) Cancer Uncle Cancer Grandmother Cancer Family History: Reports: No pertinent history Paternal Family History: Family History (Last Updated 12/11/20 @ 13:47 by Nayeli Casarez) Uncle Diabetes Cancer Father Diabetes Grandfather CVA (cerebral vascular accident) Cancer Uncle Cancer Grandmother Cancer Family History: Reports: No pertinent history Review of Systems General: Denies: Chills, Fever Eyes: Denies: Visual changes - bilaterally ENT: Denies: Bilateral ear pain Cardiovascular: Denies: Chest pain Respiratory: Denies: Dyspnea, Cough Gastrointestinal: Reports: Abdominal pain. Denies: Vomiting, Diarrhea Genitourinary: Reports: Dysuria Musculoskeletal: Denies: Swelling, Extremity Pain Skin: Denies: Rash Hematologic: Denies: Easy bruising, Easy bleeding Allergy: Denies: Uticaria Physical Exam Vital Signs/Narrative: Vital Signs Temp Pulse Resp BP Pulse Ox 02/02/21 09:42 96.5 F L 85 16 141/82 H 99 Inital Vital Signs reviewed: Yes General: Well nourished, Well developed Neck: Supple Cardiovascular: Regular rate, Regular rhythm Respiratory: No distress, CTA bilaterally Abdomen: Soft, Tender - Suprapubic tenderness to palpation.. Negative for: Guarding, Rebound tenderness Extremities: Nontender Skin: Normal color Neurological: Alert, Oriented x3 Psychological: Normal affect Diagnostic/Tx/Re-eval Impressions Abdomen/Pelvis CT 02/02/21 09:58 IMPRESSION: Increased density within the gallbladder lumen suggestive of either gallstones or sludge. Correlation with ultrasound is recommended if clinically indicated. No acute abnormality is seen. Electronically Signed: Lonnie Kim MD at 11:06 EDT , Service support , 02/02/21 09:58 Abdomen/Pelvis without Cont [CT] Stat Laboratory Results 02/02/21 02/02/21 02/02/21 09:55 09:55 10:00 WBC 10.6 RBC 4.82 Hgb 12.4 Hct 40.0 MCV 83.0 MCH 25.7 L MCHC 31.0 L RDW Std Deviation 42.9 RDW Coeff of Renetta 14.1 Plt Count 333 MPV 10.4 Immature Gran % (Auto) 0.300 Neut % (Auto) 69.4 Lymph % (Auto) 22.4 [place] % (Auto) 7.0 Eos % (Auto) 0.5 Baso % (Auto) 0.4 Absolute Neuts (auto) 7.3 Absolute Lymphs (auto) 2.37 Nucleated RBC % 0 Sodium 138 Potassium 3.9 Chloride 102 Carbon Dioxide 30.0 Anion Gap 6 BUN 9 Creatinine 0.73 Estim Creat Clear Calc 104.16 Est GFR (MDRD) Af Amer 123 Est GFR (MDRD) Non-Af 101 BUN/Creatinine Ratio 12.4 Glucose 84 Calcium 9.0 Urine Color Yellow Urine Clarity Clear Urine pH 8.0 Ur Specific Alpha 1.010 Urine Protein Negative Urine Glucose (UA) Normal Urine Ketones Negative Urine Occult Blood 50 H Urine Nitrite Negative Urine Bilirubin Negative Urine Urobilinogen Normal Ur Leukocyte Esterase 25 H Urine RBC 0-5 SEEN Urine WBC 10-25 SEEN Ur Squamous Epith Cells 0 SEEN Urine Bacteria 0 SEEN Urine Mucus 0 SEEN - Medical Decision Making She was given morphine, Zofran, Toradol, IV fluids. Test results are largely unremarkable. Renal function is normal. Urinalysis does have white cells. CT flank reveals questionable gallstones. No abnormalities noted in the pelvis. On repeat evaluation patient's resting comfortably but states she is still having pain. She will be treated for UTI. I will cover her with 10 days of antibiotics because she is having significant flank pain with it as well. She will be given Azo to help with dysuria. ED Disposition - Plan for ED Patient: Disposition: Home or Assisted Living Diagnosis: Pyelonephritis Instructions: ED Pyelonephritis, Female (Adult) Prescriptions: Smz/Tmp Ds [Bactrim Ds] 1 tablet PO BID #20 tab Transmission Status: Received by [facility] Hydrocodone Bitart/Apap 5-325 [[place] 5MG-325MG] 1 tablet PO Q6H PRN PRN 3 Days #10 tab PRN Reason: Pain Transmission Status: Received by [facility] Phenazopyridine HCl [Pyridium] 200 mg PO BID PRN PRN #10 tablet PRN Reason: Pain Transmission Status: Received by [facility] Referrals: Kevin Stauffer MD [Primary Care Provider] - 1 Week
[2021-02-02 10:05] LABS: Bacteria 0 SEEN /hpf (None Seen); Mucous, Urine 0 SEEN /hpf (<or=2+); Squamous Epithelial Cells - UA 0 SEEN /hpf (5-10)
[2021-02-02] MEDS: Ondansetron 4 MG/2 ML Vial IV (10:08)
[2021-02-02] MEDS: Ketorolac 30 MG/ML Syringe IV (10:08)
[2021-02-02 10:09] LABS: Glucose, Dipstick Normal (Normal); Ketone-Dipstick Negative (Negative); Leukocyte Esterase-Dipstick 25 /ul (Negative); Nitrite-Dipstick Negative (Negative); Occult Blood-Urine 50 /ul (Negative); Protein-Dipstick Negative (Negative); Urine Bilirubin Dipstick Negative (Negative); Urine Clarity Clear (Clear); Urine Urobilinogen Normal (Normal)
[2021-02-02] MEDS: Morphine 4 MG/ML Syringe IV ×2 (10:09→12:06)
[2021-02-02] MEDS: 0.9% Normal Saline 1,000 ML 150 ML IV (10:10)
[2021-02-02 10:11] LABS: Color, Urine Yellow (Yellow)
[2021-02-02 10:13] LABS: Absolute Lymphocyte Count 2.37 X10^3/uL (0.83-4.51); Absolute Neutrophil Count 7.3 X10^3/uL (2.0-7.7); Basophil# 0.04 X10^3/uL; Basophil% 0.4 % (0-1); Eosinophil# 0.05 X10^3/uL; Eosinophils% 0.5 % (0-5); Hemoglobin 12.4 g/dL (12.0-15.0); Lymphocyte # 2.37 X10^3/ul (4.0); Lymphocyte % 22.4 % (19-41); Mean Corpuscular Hgb 25.7 pg (27.0-32.0); Mean Platelet Vol. 10.4 fl (6.2-12.0); Monocyte# 0.74 X10^3/uL; NRBC Flagged by Analyzer 0 % (0-5); Neutrophil # 7.33 X10^3/uL (2.7-7.7); Neutrophil % 69.4 % (47-70); Platelet Count 333 K/mm3 (150-450); RBC Distribution Width CV 14.1 % (11.6-14.6); RBC Distribution Width SD 42.9 fl (35.1-43.9); Red Blood Count 4.82 M/mm3 (4.2-5.4); White Blood Count 10.6 K/mm3 (4.4-11.0)
[2021-02-02 10:19] LABS: Red Blood Cells-Urine 0-5 SEEN /hpf (0-5); White Blood Cells 10-25 SEEN /hpf (0-5)
[2021-02-02 10:24] LABS: Anion Gap 6 (5-15); BUN 9 mg/dL (7-18); BUN/Creat Ratio 12.4 RATIO (10-20); Chloride 102 mmol/L (98-107); Creatinine, Serum 0.73 mg/dL (0.55-1.02); EST Glomerular Filtration Rate 101 mL/min (>60); Est Glom Filt Rate - Afr Amer 123 mL/min (>60); Estimated Creatinine Clearance 104.16 ml/min; Glucose 84 mg/dL (74-106); Potassium 3.9 mmol/L (3.5-5.1); Sodium Level 138 mmol/L (136-145)
[2021-02-02] MEDS: Phenazopyridine 95 MG Tablet 190 MG PO (12:06)
[2021-02-02] MEDS: Smz/Tmp Ds Tablet 1 TABLET PO (12:06)
== END 2021-02-02 12:09 | disposition home or self-care (01) ==
PROVIDERS: Emergency Provider Emergency Medicine; PCP Family Medicine
DX: N12 Tubulo-interstitial nephritis, not specified as acute or chronic (principal); J45.20 Mild intermittent asthma, uncomplicated; F32.9 Major depressive disorder, single episode, unspecified; Z90.721 Acquired absence of ovaries, unilateral; Z87.891 Personal history of nicotine dependence; Z87.442 Personal history of urinary calculi
CPT/HCPCS: 74176; 80048; 81001; 85025; 96361; 96374; 96375; 96376; 99284; J7030; A4216; J2405

== ENCOUNTER 2021-06-18 10:30 | Emergency (ER) | payer MEDICAID, SELFPAY ==
[2021-06-18 10:31] VITALS: BP 118/72; PULSE 75; RESP 16; TEMP 36.2; O2SAT 100; BMI 28.5
[2021-06-18 10:35] VITALS: BP 118/72; PULSE 72; RESP 16; TEMP 36.2; O2SAT 100
--- NOTE | 2021-06-18 11:02 | EKG12_ITS ---
Test Reason : VERTIGO Blood Pressure : / mmHG Vent. Rate : 068 BPM Atrial Rate : 068 BPM P-R Int : 210 ms QRS Dur : 102 ms QT Int : 402 ms P-R-T Axes : 065 049 -23 degrees QTc Int : 427 ms Sinus rhythm with 1st degree A-V block Nonspecific T wave abnormality Abnormal ECG Confirmed by JAELYN PRO, ELEUTERIO ([id number]), manager editorial SOILA SORIANO ([id number]) on 06/21/2021 12:42:06 PM Referred By: ESTEFANI Confirmed By:ELEUTERIO CHRISTY MD
--- NOTE | 2021-06-18 11:02 | CT_ITS ---
STUDY: CT ABDOMEN AND PELVIS WITHOUT CONTRAST REASON FOR EXAM: Female, 26 years old. Postoperative abdominal pain. The patient is one week post cholecystectomy. RADIATION DOSAGE (If Supplied By Facility): CTDIvol = ( 6.67 ) mGy, DLP = ( 349.90 ) mGycm TECHNIQUE: Transaxial images were obtained from the dome of the diaphragm to the symphysis pubis without oral contrast, and without intravenous contrast. Sagittal and coronal images were reconstructed. Individualized dose optimization techniques were used for this CT. COMPARISON: Comparison is made with prior examination dated 02/02/2021. FINDINGS: The visualized lung bases are unremarkable. The visualized portions of the heart are within normal limits. Normal liver. There are surgical clips in the gallbladder fossa consistent with a prior cholecystectomy. There are multiple benign calcified granulomata of the spleen. Normal pancreas. There is a small, circumscribed, smooth, low attenuation left adrenal mass, consistent with an adrenal adenoma. This measures 1.1 cm. This was not well seen on prior examination. Normal right adrenal gland. Normal right kidney. Normal left kidney. Normal visualized stomach. Normal small intestine. There are scattered colonic diverticula consistent with diverticulosis. There are surgical clips in the region of the appendix consistent with a prior appendectomy. Normal abdominal aorta. Normal inferior vena cava. Normal retroperitoneum. Normal urinary bladder. There is absence of the uterus consistent with a prior hysterectomy. Normal abdominal wall. Normal osseous structures. CT/Abdomen/Pel W ORAL Cont Only IMPRESSION: The patient is status post cholecystectomy. Findings suggestive of a 1.1 cm left adrenal adenoma. Electronically Signed: Lonnie Kim MD at 13:13 EDT , Service support ,
--- NOTE | 2021-06-18 11:03 | EX.ED.DYSGE1 ---
HPI History of Present Illness Chief Complaint: Abd Pain Informant: patient and spouse/S.O. Narrative Narrative: Patient presents with symptoms that been ongoing since she got home from surgery Monday. They seem worse today though. She states she lifted her dog and she got pain in the upper incision. She is still eating and drinking and moving bowels though. No fevers or sweats. No swelling of the incision. Incision did not open. She also complains that she gets very dizzy mostly if she sits up or she moves. She feels as though the room is shaking back and forth. She does report a history of vertigo. This is similar. She is not having headaches. She has no chest pain or palpitations. She is having no dyspnea. No history of DVT or PE. She states her blood pressure has been skyrocketing up to 140. Sometimes it plummets down to 102. No known heart rate changes with this. She is concerned that there is bleeding in the abdomen. [facility] Medical History Abnormal uterine bleeding (AUB) Adenomyosis Anxiety and depression Chronic female pelvic pain Endometriosis determined by laparoscopy Graves disease Migraine Mild intermittent asthma Seizure Home Medications hydroxyzine HCl 25 mg PO PRN PRN 10/06/19 [History Last Taken Unknown] levothyroxine 112 mcg PO DAILY@0600 03/02/20 [History Last Taken 12/28/20 05:00] albuterol sulfate 1 - 2 puff INHALATION Q4H PRN PRN 08/04/20 [History Last Taken Unknown] sertraline 25 mg PO QHS 08/04/20 [History Last Taken Unknown] divalproex 500 mg tablet,delayed release 500 mg PO QHS tab 12/11/20 [History Last Taken Unknown] nitroglycerin 0.3 mg sublingual tablet 0.3 mg SUBLINGUAL Q5M PRN 12/11/20 [History Last Taken Unknown] estradiol 2 mg PO DAILY #100 tab 12/28/20 [Rx Last Taken Unknown] phenazopyridine 200 mg PO BID PRN PRN #10 tablet 02/02/21 [Rx Last Taken Unknown] sulfamethoxazole-trimethoprim 1 tablet PO BID #20 tab 02/02/21 [Rx Last Taken Unknown] meclizine 25 mg PO TID PRN #20 tab 06/18/21 [Rx Last Taken Unknown] Allergy/AdvReac Type Severity Reaction Status Date / Time azithromycin Allergy Anaphylaxis Verified 06/18/21 10:36 [From Zithromax Z-Ruiz] bacitracin Allergy Swelling Verified 06/18/21 10:36 [From Neosporin ([id number])] bacitracin zinc Allergy Swelling Verified 06/18/21 10:36 [From Neosporin ([id number])] latex Allergy Rash Verified 06/18/21 10:36 neomycin sulfate Allergy Swelling Verified 06/18/21 10:36 [From Neosporin ([id number])] polymyxin B Allergy Swelling Verified 06/18/21 10:36 [From Neosporin ([id number])] prednisone Allergy Anaphylaxis Verified 06/18/21 10:36 EXCEDRIN Allergy Anaphylaxis Uncoded 06/18/21 10:36 Family History Uncle Diabetes Cancer lung Father Diabetes Grandfather CVA (cerebral vascular accident) Cancer lung, unsure additional type Uncle Cancer brain Grandmother Cancer lung and unsure additional type Surgical History History of section History of laparoscopic-assisted vaginal hysterectomy History of laparoscopy History of left salpingo-oophorectomy History of thyroidectomy History of tubal ligation History of wisdom tooth extraction Social History Smoking Status: Former smoker ROS ROS ED Constitutional Constitutional ED: Denies chills, fever(s) or sweats Eyes Eyes: Reports blurry vision and other Details: He feels like her vision is shaking back and forth. ENT ENT ED: Denies rhinorrhea Respiratory/Chest Respiratory/Chest: Denies cough, dyspnea or sputum Gastrointestinal Gastrointestinal: Reports abdominal pain; Denies constipation, diarrhea, melena, nausea or vomiting Genitourinary Genitourinary ED: Denies dysuria Musculoskeletal Musculoskeletal: Denies back pain, myalgias or neck pain Integumentary Denies rash Neurologic Neurologic: Denies headache(s), paresthesias or weakness Psychiatric Psychiatric: Reports anxiety Endocrine Endocrinology: Denies polydipsia or polyuria Allergic/Immunologic Allergic/Immunologic ED: Denies urticaria EXAM Physical Exam Const Vital Signs: 06/18/21 10:31 06/18/21 10:35 06/18/21 11:37 Temperature 97.2 F L 97.2 F L 97.3 F L Temperature Source Temporal Temporal Oral Pulse Rate 75 72 84 Respiratory Rate 16 16 16 Blood Pressure 118/72 118/72 124/77 H Blood Pressure Mean 87 87 92 Pulse Ox 100 100 97 Oxygen Delivery Method Room Air Room Air Room Air 06/18/21 12:32 06/18/21 13:31 Temperature 97 F L 98.2 F Temperature Source Temporal Oral Pulse Rate 68 63 Respiratory Rate 12 15 Blood Pressure 104/73 117/75 Blood Pressure Mean 83 89 Pulse Ox 100 100 Oxygen Delivery Method Room Air Room Air Positive well nourished and well developed General Appearance ED: well developed and NAD HEENT Reports dry mucous membranes Mouth ED: Yes dry mucous membranes Mouth: dry mucous membranes Eyes EOMs intact bilaterally Eyes Narrative: Patient's pupils are normal and reactive. They go from about 3 down to 2 mm with light. She does have some nystagmus when she moves or twists. This is horizontal. When this happens she feels more dizzy. General Eye ED: Negative for pale conjunctiva or scleral icterus Neck no lymphadenopathy and supple Chest Wall inspection of chest normal Resp normal respiratory effort and clear to auscultation bilaterally Resp Narrative: No pain or disc for with breath Effort and Inspection: Negative for pain with movement Auscultation: Negative for rales, rhonchi or wheezes Cardio regular rate, regular rhythm and no murmurs GI normal to inspection, nondistended, normoactive bowel sounds GI Narrative: Patient's port sites look good and intact. There is no erythema or warmth. There is no herniation that is noted. She has local tenderness around the wound in the right upper quadrant. But overall the abdomen is not notably tender. It is a little hard to separate tenderness with very light touch versus firmer touch. Palpation: soft Back/Spine no CVA tenderness Extremity normal to inspection Extremity Narrative: No cords edema distended veins or asymmetry. General Extremety ED: Negative for edema or tenderness General Extremity: Negative for edema Neuro oriented x3 Neuro Narrative: Normal other than some mild horizontal nystagmus as above with motion. Sensorium / Orientation: alert Psych mental status grossly normal Skin no rashes or lesions noted MDM MDM MDM Narrative Medical decision making narrative: Patient's blood work showed normal CBC. Hemoglobin is stable. Electrolytes look normal. LFTs show no marked abnormalities. Lactate was mildly elevated. Urine is negative. I did a CT scan of the abdomen that shows no acute process. There is no sign of fluid collection or bleeding. I rechecked the patient. Her nystagmus is gone. She has had vertigo many times before. She is not sure what meds she was put on. However she seemed to spot to Antivert well. Patient is not having chest pain dyspnea or palpitations. She is feeling better. I think it is okay that we get her home. I see no indication of any complication with her surgery whatsoever. Lab Data Attestation: I reviewed the patient's lab results. Labs: Laboratory Results - last 24 hr 06/18/21 06/18/21 06/18/21 10:34 10:34 11:05 WBC 7.2 RBC 4.68 Hgb 12.4 Hct 39.4 MCV 84.2 MCH 26.5 L MCHC 31.5 L RDW Std Deviation 43.6 RDW Coeff of Renetta 14.3 Plt Count 366 MPV 9.8 Immature Gran % (Auto) 0.400 Neut % (Auto) 58.7 Lymph % (Auto) 29.7 [place] % (Auto) 8.0 Eos % (Auto) 2.6 Baso % (Auto) 0.6 Absolute Neuts (auto) 4.2 Absolute Lymphs (auto) 2.15 Nucleated RBC % 0 Sodium 137 Potassium 3.6 Chloride 103 Carbon Dioxide 27.0 Anion Gap 7 BUN 11 Creatinine 0.67 Estim Creat Clear Calc 112.49 Est GFR (MDRD) Af Amer 135 Est GFR (MDRD) Non-Af 111 BUN/Creatinine Ratio 16.4 Glucose 81 Lactic Acid 2.5 H* Calcium 9.0 Total Bilirubin 0.50 AST 21 ALT 50 Alkaline Phosphatase 86 Total Protein 8.8 H Albumin 3.6 Globulin 5.2 H Albumin/Globulin Ratio 0.7 L Lipase 66 L Urine Color Urine Clarity Urine pH Ur Specific [place] Urine Protein Urine Glucose (UA) Urine Ketones Urine Occult Blood Urine Nitrite Urine Bilirubin Urine Urobilinogen Ur Leukocyte Esterase Urine RBC Urine WBC Ur Squamous Epith Cells Urine Bacteria Urine Mucus 06/18/21 11:32 WBC RBC Hgb Hct MCV MCH MCHC RDW Std Deviation RDW Coeff of Renetta Plt Count MPV Immature Gran % (Auto) Neut % (Auto) Lymph % (Auto) [place] % (Auto) Eos % (Auto) Baso % (Auto) Absolute Neuts (auto) Absolute Lymphs (auto) Nucleated RBC % Sodium Potassium Chloride Carbon Dioxide Anion Gap BUN Creatinine Estim Creat Clear Calc Est GFR (MDRD) Af Amer Est GFR (MDRD) Non-Af BUN/Creatinine Ratio Glucose Lactic Acid Calcium Total Bilirubin AST ALT Alkaline Phosphatase Total Protein Albumin Globulin Albumin/Globulin Ratio Lipase Urine Color Straw Urine Clarity Clear Urine pH 7.0 Ur Specific [place] 1.010 Urine Protein Negative Urine Glucose (UA) Normal Urine Ketones Negative Urine Occult Blood 25 H Urine Nitrite Negative Urine Bilirubin Negative Urine Urobilinogen Normal Ur Leukocyte Esterase Negative Urine RBC 0 SEEN Urine WBC 0 SEEN Ur Squamous Epith Cells 0-5 SEEN Urine Bacteria RARE Urine Mucus 0 SEEN Radiography Diagnostic Testing: Radiology Impression Abdomen CT 06/18/21 11:02 IMPRESSION: The patient is status post cholecystectomy. Findings suggestive of a 1.1 cm left adrenal adenoma. Electronically Signed: Lonnie Kim MD at 13:13 EDT , Service support , EKG Initial EKG: Comments: EKG done for lightheadedness and read by me shows normal sinus rhythm rate of 68. No ectopy. There are some nonspecific anterior lateral changes but this is similar to 07 August [address]. No acute [address] elevation. SC interval is slightly long showing a slight first-degree AV block. QRS duration and QTc normal. Discharge Plan Triage Chief Complaint: Abd Pain ED Provider: Kyrie Castro Dx/Rx/DC Orders Clinical Impression: Vertigo Instructions: ED Vertigo, Unspecified Prescriptions: New meclizine 25 mg tablet 25 mg PO TID PRN (Reason: dizziness) Qty: 20 RF: 0 No Action divalproex 500 mg tablet,delayed release (DR/EC) 500 mg PO QHS RF: 0 nitroglycerin 0.3 mg tablet, sublingual 0.3 mg SUBLINGUAL Q5M PRN (Reason: cp) RF: 0 hydroxyzine HCl 25 MG tablet 25 mg PO PRN PRN (Reason: Anxiety) RF: 0 levothyroxine 88 MCG tablet 112 mcg PO DAILY@0600 RF: 0 sertraline 25 MG tablet 25 mg PO QHS RF: 0 albuterol sulfate 1 INHALER inhaler 1 - 2 puff INHALATION Q4H PRN PRN (Reason: Sob &/Or Wheezing) RF: 0 estradiol 2 MG tablet 2 mg PO DAILY Qty: 100 RF: 4 sulfamethoxazole-trimethoprim 1 TABLET tablet 1 tablet PO BID Qty: 20 RF: 0 phenazopyridine 200 MG tablet 200 mg PO BID PRN PRN (Reason: Pain) Qty: 10 RF: 0 Primary Care Provider: Kevin Stauffer Referrals: Kevin Stauffer MD [Primary Care Provider] - 3-5 Days if not improving Disposition Disposition: Home, Self Care
[2021-06-18 11:10] LABS: Absolute Lymphocyte Count 2.15 X10^3/uL (0.83-4.51); Absolute Neutrophil Count 4.2 X10^3/uL (2.0-7.7); Basophil# 0.04 X10^3/uL; Basophil% 0.6 % (0-1); Eosinophil# 0.19 X10^3/uL; Eosinophils% 2.6 % (0-5); Hematocrit 39.4 % (37-47); Hemoglobin 12.4 g/dL (12.0-15.0); Lymphocyte # 2.15 X10^3/ul (0.83-4.51); Lymphocyte % 29.7 % (19-41); Mean Corp Hgb Conc 31.5 g/dL (32-36); Mean Corpuscular Hgb 26.5 pg (27.0-32.0); Mean Corpuscular Volume 84.2 fL (81-99); Mean Platelet Vol. 9.8 fl (6.2-12.0); Monocyte# 0.58 X10^3/uL; NRBC Flagged by Analyzer 0 % (0-5); Neutrophil # 4.24 X10^3/uL (2.7-7.7); Neutrophil % 58.7 % (47-70); Platelet Count 366 K/mm3 (150-450); RBC Distribution Width CV 14.3 % (11.6-14.6); RBC Distribution Width SD 43.6 fl (35.1-43.9); Red Blood Count 4.68 M/mm3 (4.2-5.4); White Blood Count 7.2 K/mm3 (4.4-11.0)
[2021-06-18] MEDS: 0.9% Normal Saline 1,000 ML 1000 ML IV (11:10)
[2021-06-18] MEDS: Meclizine HCl 25 MG Tablet PO (11:10)
[2021-06-18 11:22] LABS: ALB/GLOB Ratio 0.7 RATIO (0.9-2.4); AST(SGOT) 21 U/L (15-37); Alanine Aminotransfer ALT/SGPT 50 U/L (13-56); Albumin, Serum 3.6 g/dL (3.2-5.0); Alkaline Phosphatase 86 U/L (45-117); Anion Gap 7 (5-15); BUN 11 mg/dL (7-18); BUN/Creat Ratio 16.4 RATIO (10-20); Chloride 103 mmol/L (98-107); Creatinine, Serum 0.67 mg/dL (0.55-1.02); EST Glomerular Filtration Rate 111 mL/min (>60); Est Glom Filt Rate - Afr Amer 135 mL/min (>60); Estimated Creatinine Clearance 112.49 ml/min; Globulin 5.2 g/dL (2.2-4.2); Glucose 81 mg/dL (74-106); Lipase 66 U/L (73-393); Potassium 3.6 mmol/L (3.5-5.1); Protein, Total 8.8 g/dL (6.4-8.2); Sodium Level 137 mmol/L (136-145)
[2021-06-18 11:37] VITALS: BP 124/77; PULSE 84; RESP 16; TEMP 36.3; O2SAT 97
[2021-06-18 11:38] LABS: Mucous, Urine 0 SEEN /hpf (<or=2+); Red Blood Cells-Urine 0 SEEN /hpf (0-5); White Blood Cells 0 SEEN /hpf (0-5)
[2021-06-18 11:39] LABS: Color, Urine Straw (Yellow); Glucose, Dipstick Normal (Normal); Ketone-Dipstick Negative (Negative); Leukocyte Esterase-Dipstick Negative /ul (Negative); Nitrite-Dipstick Negative (Negative); Occult Blood-Urine 25 /ul (Negative); Protein-Dipstick Negative (Negative); Urine Bilirubin Dipstick Negative (Negative); Urine Clarity Clear (Clear); Urine Urobilinogen Normal (Normal)
[2021-06-18 11:48] LABS: Lactic Acid 2.5 mmol/L (0.4-1.9)
[2021-06-18 11:48] LABS: Bacteria RARE /hpf (None Seen); Squamous Epithelial Cells - UA 0-5 SEEN /hpf (5-10)
[2021-06-18 12:32] VITALS: BP 104/73; PULSE 68; RESP 12; TEMP 36.1; O2SAT 100
[2021-06-18 13:31] VITALS: BP 117/75; PULSE 63; RESP 15; TEMP 36.8; O2SAT 100
[2021-06-18 14:09] VITALS: BP 122/71; PULSE 78; RESP 16; O2SAT 98
[2021-06-18 15:11] LABS: Reflex Lactate? Y
== END 2021-06-18 14:10 | disposition home or self-care (01) ==
PROVIDERS: Emergency Provider Emergency Medicine; PCP Family Medicine
DX: R42 Dizziness and giddiness (principal); F32.9 Major depressive disorder, single episode, unspecified; E05.00 Thyrotoxicosis with diffuse goiter without thyrotoxic crisis or storm; J45.20 Mild intermittent asthma, uncomplicated; Z87.891 Personal history of nicotine dependence; Z79.899 Other long term (current) drug therapy
CPT/HCPCS: 74176; 80053; 81001; 83605; 83690; 85025; 93005; 96360; 96361; 99285

== ENCOUNTER 2021-08-10 18:43 | Emergency (ER) | payer MEDICAID, SELFPAY ==
[2021-08-10 18:46] VITALS: BP 114/69; PULSE 109; RESP 40; TEMP 35.9; O2SAT 100; BMI 26.6
[2021-08-10 18:48] VITALS: PULSE 111; RESP 22
[2021-08-10] MEDS: Ipratropium/Albuterol Sulfate 3 ML AMPUL.NEB INHALATION (18:48)
== END 2021-08-10 19:37 | disposition left against medical advice (07) ==
LOC: ED 19:39
PROVIDERS: PCP Family Medicine
DX: Z53.21 Procedure and treatment not carried out due to patient leaving prior to being seen by health care provider (principal)
CPT/HCPCS: 87426; 94640

== ENCOUNTER 2021-09-17 08:34 | Emergency (ER) | payer MEDICAID, SELFPAY ==
[2021-09-17 08:35] VITALS: BP 118/76; PULSE 100; RESP 18; TEMP 36.6; O2SAT 99; BMI 27.4
--- NOTE | 2021-09-17 09:11 | EDS_ITS ---
HPI History of Present Illness Chief Complaint: Chest Pain Informant: patient Onset/Context/Timing Onset: Days (2) Activity at onset: sudden and sleep Timing: Continuous and Waxes and wanes Quality: Positive for Sharp Location: - (epigastric/mid-low chest) Current Severity: Moderate Maximum Severity: Severe Worsened By: - (swallowing food) Relieved By: Nothing (tried pantoprazole, baking soda in water) Associated Symptoms: Positive for - (mild sore throat, wheezing/sob); Negative for Nausea, Vomiting and Fever Narrative Narrative: Patient states she is having discomfort in her lower mid chest without radiation/epigastrium that woke her up at 3 AM couple mornings ago, has been constant ever since but colicky, she states it was definitely worse when she was swallowing food she had trouble eating Thanksgiving dinner last night as a result, when the food seems to get to her lower esophagus it seems to make the discomfort worse. She also states that she has been wheezing lately, she has a history of asthma, as a result she has been using her nebulizer with albuterol, this has been helping the wheezing when she has had a. She is not using this a lot. She has had a mild sore throat, no fevers or chills, no coughing. She denies any leg pain or swelling, history DVT or PE, hospitalization/travel/surgery/immobilization in the past 1-2 months. She has extensive medical history for her age including Davonte's disease, Graves' disease, seizure disorder, etc., and she states she has some type of heart problem which is why she became concerned enough to come to the ER for this. On further exploration when the patient pulls up her [facility] in my chart, it appears that she had palpitations in the past and therefore has been following with cardiology Dr. Leonard, and she was diagnosed with a first-degree AV block with no ST segment problems, she had a normal stress echo and a normal heart cath in 2019. Patient states because of the mild sore throat and wheezing she did a home Covid test 3 days ago and it was negative. She has not been vaccinated, but is thinking about getting vaccinated because of all of her medical problems. [facility] Medical History (Updated 09/17/21 @ 10:[address] Piotr Garay MD) Abnormal uterine bleeding (AUB) Adenomyosis Anxiety and depression Chronic female pelvic pain Endometriosis determined by laparoscopy Graves disease History of left heart catheterization Migraine Mild intermittent asthma Seizure Home Medications hydroxyzine HCl 25 mg PO PRN PRN 10/06/19 [History Last Taken Unknown] levothyroxine 112 mcg PO DAILY@0600 03/02/20 [History Last Taken 12/28/20 05:00] albuterol sulfate 1 - 2 puff INHALATION Q4H PRN PRN 08/04/20 [History Last Taken Unknown] sertraline 25 mg PO QHS 08/04/20 [History Last Taken Unknown] divalproex 500 mg tablet,delayed release 500 mg PO QHS tab 12/11/20 [History Last Taken Unknown] nitroglycerin 0.3 mg sublingual tablet 0.3 mg SUBLINGUAL Q5M PRN 12/11/20 [History Last Taken Unknown] estradiol 2 mg PO DAILY #100 tab 12/28/20 [Rx Last Taken Unknown] phenazopyridine 200 mg PO BID PRN PRN #10 tablet 02/02/21 [Rx Last Taken Unknown] sulfamethoxazole-trimethoprim 1 tablet PO BID #20 tab 02/02/21 [Rx Last Taken Unknown] meclizine 25 mg PO TID PRN #20 tab 06/18/21 [Rx Last Taken Unknown] pantoprazole 40 mg PO DAILY #14 tab 09/17/21 [Rx Last Taken Unknown] Allergy/AdvReac Type Severity Reaction Status Date / Time azithromycin Allergy Anaphylaxis Verified 09/17/21 08:38 [From Zithromax Z-Ruiz] bacitracin Allergy Swelling Verified 09/17/21 08:38 [From Neosporin ([id number])] bacitracin zinc Allergy Swelling Verified 09/17/21 08:38 [From Neosporin ([id number])] latex Allergy Rash Verified 09/17/21 08:38 neomycin sulfate Allergy Swelling Verified 09/17/21 08:38 [From Neosporin ([id number])] polymyxin B Allergy Swelling Verified 09/17/21 08:38 [From Neosporin ([id number])] EXCEDRIN Allergy Anaphylaxis Uncoded 09/17/21 08:38 Family History Uncle Diabetes Cancer lung Father Diabetes Grandfather CVA (cerebral vascular accident) Cancer lung, unsure additional type Uncle Cancer brain Grandmother Cancer lung and unsure additional type Surgical History History of section History of laparoscopic-assisted vaginal hysterectomy History of laparoscopy History of left salpingo-oophorectomy History of thyroidectomy History of tubal ligation History of wisdom tooth extraction Social History Smoking Status: Former smoker ROS ROS ED Constitutional Constitutional ED: Denies chills or fever(s) Eyes Eyes: Denies change in vision or diplopia ENT ENT ED: Reports sore throat; Denies rhinorrhea Cardiovascular Cardiovascular: Reports as per HPI and chest pain; Denies palpitations Respiratory/Chest Respiratory/Chest: Reports dyspnea and wheezing; Denies cough Gastrointestinal Gastrointestinal: Reports abdominal pain and nausea; Denies diarrhea or vomiting Genitourinary Genitourinary ED: Denies dysuria or hematuria Musculoskeletal Musculoskeletal: Denies back pain or neck pain Integumentary Denies abscess or rash Neurologic Neurologic: Denies headache(s), paresthesias or weakness Psychiatric Psychiatric: Denies anxiety or suicidal thoughts EXAM Physical Exam Const Vital Signs: 09/17/21 08:35 09/17/21 09:36 Temperature 97.9 F Temperature Source Temporal Pulse Rate 100 Respiratory Rate 18 Respiratory Effort Normal Non-Labored Respiratory Pattern Normal Blood Pressure 118/76 Blood Pressure Mean 90 Pulse Ox 99 Oxygen Delivery Method Room Air Positive well nourished and well developed General Appearance ED: well developed and NAD HEENT Reports moist mucous membranes normocephalic and atraumatic Eyes PERRL and EOMs intact bilaterally Neck full ROM and supple Resp normal respiratory effort and clear to auscultation bilaterally Cardio regular rate, regular rhythm and no murmurs Rate: Negative for tachycardic GI non-distended GI Narrative: Tender in epigastrium only. Otherwise benign exam. Negative [place]'s. Auscultation: normoactive bowel sounds Palpation: soft Back/Spine no CVA tenderness General Back: other FROM Extremity normal to inspection and no calf tenderness General Extremety ED: Negative for edema, pulses abnormal or tenderness General Extremity: Negative for edema or pulses abnormal Neuro oriented x3, CN's II-XII intact bilaterally and no sensory deficits noted Sensorium / Orientation: awake and alert Motor Exam: strength 5/5 throughout Skin no rashes or lesions noted and no wounds MDM MDM MDM Narrative Medical decision making narrative: EKG and x-ray are unremarkable. I feel like the patient's mild asthma symptoms are unrelated to this chest discomfort which she states feels esophageal and I agree. She states it is much worse whenever she swallows anything, and on its way down her esophagus she has no discomfort until it seems to get to the end. I do not think she needs a CT scan at this time nor any blood work, she has had a prior cholecystectomy, this clearly is distal esophagus/stomach in etiology, but she is able to pass food and liquids, it just hurts. I would recommend following up for an EGD if symptoms persist and do a PPI in the meantime, we discussed all that and she was in agreement, she was given a referral. Radiography Diagnostic Testing: Clinical Impression(s) from Imaging Studies Chest X-Ray 09/17/21 09:50 IMPRESSION: No acute cardiopulmonary process. Electronically Signed: Dieudonne Lua MD at 10:12 EST Tel , Service support , EKG Initial EKG: Attestation: I personally reviewed and interpreted this EKG as follows: Interpretation: Sinus Rhythm, No Acute Injury Pattern and Non-Specific ST Changes (Inferiorly and laterally, unchanged compared with prior) Prior EKG tracings: available for review (06/18/2021) Prior: Unchanged Discharge Plan Triage Chief Complaint: Chest Pain ED Provider: Piotr Garay Dx/Rx/DC Orders Clinical Impression: Acute epigastric pain Instructions: ED Epigastric Pain Uncertain Cause Prescriptions: New pantoprazole 40 mg tablet,delayed release (DR/EC) 40 mg PO DAILY Qty: 14 RF: 0 No Action divalproex 500 mg tablet,delayed release (DR/EC) 500 mg PO QHS RF: 0 nitroglycerin 0.3 mg tablet, sublingual 0.3 mg SUBLINGUAL Q5M PRN (Reason: cp) RF: 0 hydroxyzine HCl 25 MG tablet 25 mg PO PRN PRN (Reason: Anxiety) RF: 0 levothyroxine 88 MCG tablet 112 mcg PO DAILY@0600 RF: 0 sertraline 25 MG tablet 25 mg PO QHS RF: 0 albuterol sulfate 1 INHALER inhaler 1 - 2 puff INHALATION Q4H PRN PRN (Reason: Sob &/Or Wheezing) RF: 0 estradiol 2 MG tablet 2 mg PO DAILY Qty: 100 RF: 4 sulfamethoxazole-trimethoprim 1 TABLET tablet 1 tablet PO BID Qty: 20 RF: 0 phenazopyridine 200 MG tablet 200 mg PO BID PRN PRN (Reason: Pain) Qty: 10 RF: 0 meclizine 25 mg tablet 25 mg PO TID PRN (Reason: dizziness) Qty: 20 RF: 0 Primary Care Provider: Kevin Stauffer Referrals: Gabo Salomon DO [STAFF PHYSICIAN] - As soon as possible Kevin Stauffer MD [Primary Care Provider] - Disposition Disposition: Home, Self Care
--- NOTE | 2021-09-17 09:11 | EKG12_ITS ---
Test Reason : Blood Pressure : / mmHG Vent. Rate : 086 BPM Atrial Rate : 086 BPM P-R Int : 164 ms QRS Dur : 090 ms QT Int : 362 ms P-R-T Axes : 033 042 -20 degrees QTc Int : 433 ms Normal sinus rhythm Nonspecific T wave abnormality Abnormal ECG Confirmed by JAELYN PRO, ELEUTERIO ([id number]), legal editor SOILA SORIANO ([id number]) on 09/21/2021 8:52:47 AM Referred By: ERMIAS Confirmed By:ELEUTERIO CHRISTY MD
--- NOTE | 2021-09-17 09:50 | RAD_ITS ---
INDICATION: cp/sob EXAMINATION/TECHNIQUE: X-RAY - XR Chest 2 Views COMPARISON: Chest radiograph from 03/11/2019. FINDINGS: LINES/DEVICES: None. The cardiomediastinal silhouette is within normal limits. No focal consolidations, effusions, or sizable pneumothorax. Osseous structures are grossly intact. RAD/Chest PA and Lateral IMPRESSION: No acute cardiopulmonary process. Electronically Signed: Dieudonne Lua MD at 10:12 EST Tel , Service support ,
[2021-09-17] MEDS: Mag Hydrox/Al Hydrox/Simeth 30 ML UDC PO (09:53)
[2021-09-17 11:16] VITALS: RESP 18
== END 2021-09-17 11:17 | disposition home or self-care (01) ==
PROVIDERS: Emergency Provider Emergency Medicine; PCP Family Medicine
DX: R10.13 Epigastric pain (principal); Z87.891 Personal history of nicotine dependence
CPT/HCPCS: 71046; 93005; 99283

== ENCOUNTER 2021-09-21 12:17 | Day surgery (SDC) | payer MEDICAID, SELFPAY ==
[2021-09-21 13:03] VITALS: BP 95/66; PULSE 47; RESP 18; TEMP 37.2; O2SAT 97; BMI 26.3
[2021-09-21] MEDS: Lactated Ringers 1,000 ML 15 ML IV (13:17)
--- NOTE | 2021-09-21 13:30 | EGD_PTH ---
PATIENT: SONIA SZYMANSKI LOC: EN U#:[id number] AGE/SX: 26/F ROOM: RE09/21/[address]: Dr. Gabo Salomon DO : 1995 BED: DIS: 09/21/2021 SPEC #: [id number] RECD: 09/21/21 15:18 STATUS: CHRIS REJamir #: [id number] LENORA: 09/21/21 13:[address]: Gabo Salomon DEPT: SURGICAL PATHOLOGY RECD BY: Radha Armas ENTERED: 09/22/21 09:32 SP TYPE: EGD BIOPSY LAWANDA DR: Dr. Kevin Stauffer MD Tissues: A - Gastric mucous membrane B - Duodenum, NOS C - Esophagus, NOS Procedures: Surgery Specimen Level IV HEADER OPERATION: EGD PRE-OP DIAGNOSIS: Acute epigastric pain, RLQ abdominal pain, dysphagia TISSUE SUBMITTED: A ? Antrum biopsy for H. pylori and path, B ? Duodenum biopsy, C ? Random esophagus biopsy MICROSCOPIC DIAGNOSIS A. Antrum biopsy: Mild gastritis. See microscopic description and comment. B. Duodenum, biopsy: Fragments of duodenal mucosa with mild congestion. C. Esophagus, random biopsy: Fragments of squamous epithelium, no pathologic diagnosis. SJ:rg 09/23/2021 COMMENT A. The results of immunohistochemistry for Helicobacter pylori will be reported separately ([id number]). MICROSCOPIC DESCRIPTION Slides are reviewed. A. The specimen shows fragments of gastric mucosa with chronic inflammatory cell infiltrates in the lamina propria consisting of lymphocytes and plasma cells, consistent with mild chronic gastritis. Focal mucosal congestion is also noted. GROSS DESCRIPTION A - Received in fixative is one container labeled with the patient's name and designated antrum biopsy. The specimen consists of two irregular fragments of light craft soft tissue that in aggregate measure 0.5 x 0.5 x 0.1 cm. The specimen is totally submitted in one cassette. B - Received in fixative is one container labeled with the patient's name and designated duodenum biopsy. The specimen consists of multiple irregular fragments of light craft soft tissue that in aggregate measure 1.5 x 0.5 x 0.1 cm. The specimen is totally submitted in one cassette. C - Received in fixative is one container labeled with the patient's name and designated random esophagus biopsy. The specimen consists of multiple irregular fragments of light craft soft tissue that in aggregate measure 1 x 0.2 x 0.1 cm. The specimen is totally submitted in one cassette. / SJ:rg 09/22/21 TC:5 CPT: 78362 x3
--- NOTE | 2021-09-21 13:30 | IMM_PTH ---
PATIENT: SONIA SZYMANSKI LOC: EN U#:[id number] AGE/SX: 26/F ROOM: RE09/21/[address]: Dr. Gabo Salomon DO : 1995 BED: DIS: 09/21/2021 SPEC #: [id number] RECD: 09/22/21 13:36 STATUS: CHRIS REQ #: [id number] LENORA: 09/21/21 13:[address]: Gabo Salomon DEPT: IMMUNOHISTOCHEMISTRY RECD BY: Marilee Rosario ENTERED: 09/22/21 13:37 SP TYPE: IMMUNO OTHR DR: Dr. Kevin Stauffer MD Tissues: A - Stomach, NOS Procedures: H Pylori (initial) PHYSICIAN & INSTITUTION [address] [address] SPECIMEN INFORMATION: Tissue Source: A ? Antrum biopsy Clinical Info: Acute epigastric pain, RLQ abdominal pain, dysphagia Specimen Number: [id number] CPT code: 72726 METHODOLOGY: Deparaffinized sections of prefer/formalin-fixed tissue or PAP/DQ stained slides are incubated with monoclonal/polyclonal antibodies/oligonucleotide probes. Localization is made via biotin free immunoperoxidase method. Appropriate controls are performed and reacted as expected. Results on target cell population are indicated in the following table: RESULTS: ANTIBODY / CLONE RESULT Block A H Pylori (polyclonal) negative These tests were developed and their performance characteristics determined by [facility]. They may not have been cleared or approved by the U.S. Food and Drug Administration. The FDA has determined that such clearance or approval is not necessary. INTERPRETATION: A. Antrum, biopsy: Negative for Helicobacter pylori organisms. SJ:mariella 09/23/2021
--- NOTE | 2021-09-21 14:41 | HP.PCM_ITS ---
History and Physical Date of Admission: 09/21/21 who presents to the office today for evaluation of midepigastric chest pain and GERD. She did go to the emergency room after having worsening midepigastric pain associated with nausea and worsening reflux disease. Thanksgiving morning she woke with pain midepigastric and chest. Additionally she has difficulty with swallowing and hoarsness. Presented to ED for evaluation who referred to our office and gave her protonix. 4-5 years prior she had EGD and colonoscopy performed with findings of gastric ulcer located at the top of her stomach, IBS-D and diverticulitis history. IBS managed with diet. Gallbladder removed May of this year following severe pain and testing showed it was not functioning correctly. No repeat EGD. History of [place]'s Disease, Grave's Disease, migraines, seizures, hypothyroid. ROS ENT ENT: Positive for difficulty swallowing, hoarseness and sore throat Cardio Cardiology: Positive for chest pain at rest and shortness of breath Gastro GI: Positive for diarrhea, difficulty swallowing and nausea/dyspepsia Psych Psychiatric: Positive for anxiety Exam Const General: cooperative and comfortable Nutritional Appearance: average body habitus and well nourished HENMT Head: normal to inspection Ears: hearing grossly normal bilaterally Nose: external nose normal Face and sinus: normal facial exam Mouth: oral mucosae normal Throat: posterior oropharynx normal Eyes General: appearance normal, both eyes and all related structures Neck Neck: normal visual inspection Chest Chest palpation & inspection: normal inspection of the chest and normal palpation of entire chest wall Resp Effort & Inspection: normal respiratory effort Auscultation: Bilateral: Clear to Auscultation Cardio Palpation: normal PMI Rate: regular rate Rhythm: regular rhythm GI Inspection: normal to inspection Auscultation: normal bowel sounds Percussion: normal to percussion Palpation: no hepatosplenomegaly Skin General: no rashes or lesions noted Neuro General: patient alert Extrem General: normal to inspection Psych Affect: normal affect Quality Reporting Tobacco Screening (CMS 138) Smoking Status: Former smoker Assessment and Plan Assessment and Plan (1) Acute epigastric pain: Status: Acute Plan - Dr. Ayon Friend, DO: Differential diagnosis for abdominal pain would be functional abdominal pain, IBS, gastritis, atypical GERD. We will also evaluate her for possible celiac disease. She should also possibly worked up for a men syndrome being that she does have [place]'s disease and Graves' disease. (2) RLQ abdominal pain: Status: Acute Plan - Dr. Ayon Friend, DO: . This was for functional gallbladder disease. It is better since removing her gallbladder but she still gets occasional pain. (3) Dysphagia: Status: Acute Plan - Dr. Ayon Friend, DO: We will evaluate her upper GI tract for erosive esophagitis, eosinophilic esophagitis, hiatal hernia, esophageal web. I suspect this is all from erosive esophagitis however we will not know until she gets an upper endoscopy. I have re-examined the patient. There are no clinical changes since date of exam.
[2021-09-21 15:10] VITALS: BP 107/72; BP 95/66; PULSE 80; RESP 16; TEMP 36.1; O2SAT 99
[2021-09-21 15:15] VITALS: BP 95/66; BP 96/65; PULSE 76; RESP 16; O2SAT 99
[2021-09-21 15:20] VITALS: BP 102/65; BP 95/66; PULSE 85; RESP 16; O2SAT 100
[2021-09-21 15:22] VITALS: BP 107/65; BP 95/66; PULSE 81; RESP 16; TEMP 36.6; O2SAT 97
--- NOTE | 2021-09-21 15:34 | OP.EGD_ITS ---
Patient Name: Jaquelin Avendaño Procedure Date: 09/21/2021 2:35 PM Date of : 1995 Age: 26 Procedure: Upper GI endoscopy Indications: Epigastric abdominal pain, Dysphagia Providers: Gabo Salomon DO Medicines: See the Anesthesia note for documentation of the administered medications Patient Profile: This is a 26 year old female. Refer to note in patient chart for documentation of history and physical. Patient has symptoms of chronic dysphagia and dysphagia with solids. Complications: No immediate complications. Procedure: Pre-Anesthesia Assessment: - Prior to the procedure, a History and Physical was performed, and patient medications and allergies were reviewed. The risks and benefits of the procedure and the sedation options and risks were discussed with the patient. All questions were answered and informed consent was obtained. Patient identification and proposed procedure were verified by the physician in the pre-procedure area. Mental Status Examination: alert and oriented. Airway Examination: normal oropharyngeal airway and neck mobility. Respiratory Examination: clear to auscultation. CV Examination: normal. Prophylactic Antibiotics: The patient does not require prophylactic antibiotics. Prior Anticoagulants: The patient has taken no previous anticoagulant or antiplatelet agents. ASA Grade Assessment: II - A patient with mild systemic disease. After reviewing the risks and benefits, the patient was deemed in satisfactory condition to undergo the procedure. The anesthesia plan was to use moderate sedation / analgesia (conscious sedation). Immediately prior to administration of medications, the patient was re-assessed for adequacy to receive sedatives. The heart rate, respiratory rate, oxygen saturations, blood pressure, adequacy of pulmonary ventilation, and response to care were monitored throughout the procedure. The physical status of the patient was re-assessed after the procedure. After obtaining informed consent, the endoscope was passed under direct vision. Throughout the procedure, the patient's blood pressure, pulse, and oxygen saturations were monitored continuously. The Endoscope was introduced through the mouth, and advanced to the second part of duodenum. The upper GI endoscopy was accomplished without difficulty. The patient tolerated the procedure well. Moderate Sedation: Moderate (conscious) sedation was administered by the endoscopy nurse and supervised by the endoscopist. The patient's oxygen saturation, heart rate, blood pressure and response to care were monitored. Total physician intraservice time was 15 minutes. Scope In: 2:48:37 PM Scope Out: 3:03:44 PM Total Procedure Duration Time 0 hours 15 minutes 7 seconds Findings: Non-severe esophagitis with no bleeding was found. Biopsies were taken with a cold forceps for histology. Verification of patient identification for the specimen was done. Estimated blood loss was minimal. A mild Schatzki ring was found in the lower third of the esophagus. A guidewire was placed and the scope was withdrawn. Dilation was performed with a Savary dilator with no resistance at 54 Fr. The dilation site was examined and showed moderate improvement in luminal narrowing. Estimated blood loss was minimal. Localized mild inflammation characterized by congestion (edema) was found at the pylorus. Biopsies were taken with a cold forceps for histology. Verification of patient identification for the specimen was done. Estimated blood loss was minimal. Scattered moderate inflammation characterized by erosions, erythema and friability was found in the first portion of the duodenum. Biopsies were taken with a cold forceps for histology. Verification of patient identification for the specimen was done. Estimated blood loss was minimal. Impression: - Non-severe non-erosive esophagitis. Biopsied. - Mild Schatzki ring. Dilated. - Gastritis. Biopsied. - Duodenitis. Biopsied. Recommendation: - Discharge patient to home. - Resume previous diet. - Continue present medications. - Await pathology results. - Repeat upper endoscopy in 1 year for surveillance based on pathology results. - Return to GI office in 2 weeks. Procedure Code(s): --- Professional --- 51063, Esophagogastroduodenoscopy, flexible, transoral; with insertion of guide wire followed by passage of dilator(s) through esophagus over guide wire 16804, 59, Esophagogastroduodenoscopy, flexible, transoral; with biopsy, single or multiple G0500, Moderate sedation services provided by the same physician or other qualified health foster care case manager performing a gastrointestinal endoscopic service that sedation supports, requiring the presence of an independent trained observer to assist in the monitoring of the patient's level of consciousness and physiological status; initial 15 minutes of intra-service time; patient age 5 years or older (additional time may be reported with 92089, as appropriate) Diagnosis Code(s): --- Professional --- K20.8, Other esophagitis K22.2, Esophageal obstruction K29.70, Gastritis, unspecified, without bleeding K29.80, Duodenitis without bleeding R10.13, Epigastric pain R13.10, Dysphagia, unspecified CPT copyright 2017 [employer]. All rights reserved. The codes documented in this report are preliminary and upon hospital librarian review may be revised to meet current compliance requirements. Gabo Salomon DO 09/21/2021 3:34:27 PM This report has been signed electronically. Number of Addenda: 1 Note Initiated On: 09/21/2021 2:35 PM Addendum Number: 1 Addendum Date: 06/24/2022 6:37:24 AM MAC was used instead of moderate sedation for this patient. Gabo Salomon DO 06/24/2022 6:37:29 AM This report has been signed electronically.
[2021-09-21 15:45] VITALS: BP 95/66
== END 2021-09-21 15:48 ==
LOC: EN 12:19 → AC 12:19
PROVIDERS: PCP Family Medicine; Referring Provider Family Medicine; Visit Provider Internal Medicine Gastroenterology
DX: K29.70 Gastritis, unspecified, without bleeding (principal); K20.90 Esophagitis, unspecified without bleeding; K22.2 Esophageal obstruction; K29.80 Duodenitis without bleeding; K21.9 Gastro-esophageal reflux disease without esophagitis; J45.909 Unspecified asthma, uncomplicated; F41.9 Anxiety disorder, unspecified; F32.A Depression, unspecified; E03.9 Hypothyroidism, unspecified; E27.1 Primary adrenocortical insufficiency; R56.9 Unspecified convulsions; G43.909 Migraine, unspecified, not intractable, without status migrainosus; K58.9 Irritable bowel syndrome, unspecified; E05.00 Thyrotoxicosis with diffuse goiter without thyrotoxic crisis or storm; Z87.891 Personal history of nicotine dependence; Z79.899 Other long term (current) drug therapy
CPT/HCPCS: 43239; 43248; 87426; 88305; 88342; C9803; J7120; C1769; J2405

== ENCOUNTER 2021-09-29 12:09 | Emergency (ER) | payer MEDICAID, SELFPAY ==
[2021-09-29 12:10] VITALS: BP 123/83; PULSE 65; RESP 15; TEMP 36.3; O2SAT 100; BMI 27.5
[2021-09-29] MEDS: Ondansetron 4 MG/2 ML Vial IV (13:15)
[2021-09-29] MEDS: 0.9% Normal Saline 1,000 ML 1000 ML IV (13:15)
[2021-09-29 13:16] VITALS: RESP 16
[2021-09-29 13:17] LABS: Absolute Lymphocyte Count 3.04 X10^3/uL (0.83-4.51); Absolute Neutrophil Count 2.7 X10^3/uL (2.0-7.7); Basophil# 0.01 X10^3/uL; Basophil% 0.2 % (0-1); Eosinophil# 0.02 X10^3/uL; Eosinophils% 0.3 % (0-5); Hematocrit 33.6 % (37-47); Hemoglobin 10.9 g/dL (12.0-15.0); Lymphocyte # 3.04 X10^3/ul (0.83-4.51); Lymphocyte % 49.8 % (19-41); Mean Corp Hgb Conc 32.4 g/dL (32-36); Mean Corpuscular Hgb 27.1 pg (27.0-32.0); Mean Corpuscular Volume 83.6 fL (81-99); Mean Platelet Vol. 9.7 fl (6.2-12.0); Monocyte# 0.33 X10^3/uL; Monocyte% 5.4 % (0-10); NRBC Flagged by Analyzer 0 % (0-5); Neutrophil # 2.67 X10^3/uL (2.7-7.7); Neutrophil % 43.8 % (47-70); Platelet Count 277 K/mm3 (150-450); Red Blood Count 4.02 M/mm3 (4.2-5.4); White Blood Count 6.1 K/mm3 (4.4-11.0)
--- NOTE | 2021-09-29 13:25 | CT_ITS ---
STUDY: CT ABDOMEN AND PELVIS WITHOUT CONTRAST REASON FOR EXAM: Female, 26 years old. Abdominal pain. History of [place]''s disease and Graves'' disease. RADIATION DOSAGE (If Supplied By Facility): CTDIvol = ( 6.95 ) mGy, DLP = ( 359.28 ) mGycm TECHNIQUE: Transaxial images were obtained from the dome of the diaphragm to the symphysis pubis without oral contrast, and without intravenous contrast. Sagittal and coronal images were reconstructed. Individualized dose optimization techniques were used for this CT. COMPARISON: Comparison is made with prior study 06/18/2021. FINDINGS: The visualized lung bases are unremarkable. The visualized portions of the heart are within normal limits. Normal liver. The patient is status post cholecystectomy. Normal spleen. Normal pancreas. There is a small, circumscribed, smooth, low attenuation left adrenal mass, consistent with an adrenal adenoma. This is unchanged. Normal right adrenal gland. Normal right kidney. Normal left kidney. Normal visualized stomach. Normal small intestine. Normal colon. The appendix is visualized and appears normal. Normal abdominal aorta. Normal inferior vena cava. There is borderline retroperitoneal lymphadenopathy with enlarged nodes no greater than 10mm in the short axis diameter. Normal urinary bladder. There is absence of the uterus consistent with a prior hysterectomy. Normal abdominal wall. Normal osseous structures. CT/Abdomen/Pelvis without Cont IMPRESSION: Stable examination. Electronically Signed: Lonnie Kim MD at 14:07 EST , Service support ,
[2021-09-29 13:50] LABS: ALB/GLOB Ratio 0.7 RATIO (0.9-2.4); AST(SGOT) 6 U/L (15-37); Alanine Aminotransfer ALT/SGPT 16 U/L (13-56); Albumin, Serum 2.8 g/dL (3.2-5.0); Alkaline Phosphatase 54 U/L (45-117); Anion Gap 6 (5-15); BUN 11 mg/dL (7-18); BUN/Creat Ratio 12.5 RATIO (10-20); Calcium,Total 8.4 mg/dL (8.5-10.1); Chloride 102 mmol/L (98-107); Creatinine, Serum 0.88 mg/dL (0.55-1.02); EST Glomerular Filtration Rate 81 mL/min (>60); Est Glom Filt Rate - Afr Amer 98 mL/min (>60); Globulin 4.3 g/dL (2.2-4.2); Glucose 92 mg/dL (74-106); Lipase 53 U/L (73-393); Potassium 2.8 mmol/L (3.5-5.1); Protein, Total 7.1 g/dL (6.4-8.2); Sodium Level 142 mmol/L (136-145)
[2021-09-29 13:51] LABS: Mucous, Urine 0 SEEN /hpf (<or=2+)
[2021-09-29 13:54] LABS: Color, Urine Yellow (Yellow); Glucose, Dipstick Normal (Normal); Ketone-Dipstick 5 mg/dl (Negative); Leukocyte Esterase-Dipstick 25 /ul (Negative); Nitrite-Dipstick Negative (Negative); Occult Blood-Urine 10 /ul (Negative); Protein-Dipstick 30 mg/dl (Negative); Urine Clarity Clear (Clear); Urine Urobilinogen 4 mg/dl (Normal)
[2021-09-29 14:04] LABS: Urine Bilirubin Dipstick 1 mg/dL (Negative)
--- NOTE | 2021-09-29 14:22 | EDS_ITS ---
HPI History of Present Illness Chief Complaint: Nausea/Vomiting Narrative Narrative: Patient with past medical history of Herman's disease, takes oral steroids, presents with multiple somatic complaints, but mainly nausea and vomiting, along with diarrhea. She states that she has had Covid and was diagnosed last week. She has been having shortness of breath and fatigue consistent with COVID-19. However, she developed nausea and vomiting. She has vomited a few times today. She was able to take her morning dose of steroids, but states she vomited them back up. She administered her intramuscular injection of steroids for her Herman's, and presents to the emergency department because she was told by her risk and insurance manager that anytime she has nausea and vomiting and is unable to take her steroids that she needs to come directly to the emergency department. Past medical history also includes Graves' disease and seizure disorder. She states she feels fatigued and has had symptoms of nausea and vomiting with a small amount of diarrhea from her COVID- 19. [facility] Medical History Abnormal uterine bleeding (AUB) Adenomyosis Anxiety and depression Asthma Cardiology follow-up encounter Chest pain Chronic female pelvic pain Diabetes Difficulty swallowing Dysphagia Easy bruising Endometriosis determined by laparoscopy Former smoker Gastric reflux Graves disease History of diverticulitis History of echocardiogram History of IBS History of left heart catheterization History of steroid therapy History of stress test History of ulceration Low iron Migraine Mild intermittent asthma Restless legs Seizure Seizures Shortness of breath on exertion Wears glasses Home Medications hydroxyzine HCl 25 mg PO PRN PRN 10/06/19 [History Last Taken Unknown] levothyroxine 112 mcg PO DAILY@0600 03/02/20 [History Last Taken 09/21/21] albuterol sulfate 1 - 2 puff INHALATION Q4H PRN PRN 08/04/20 [History Last Taken Unknown] divalproex 500 mg tablet,delayed release 750 mg PO QHS tab 12/11/20 [History Last Taken Unknown] nitroglycerin 0.3 mg sublingual tablet 0.3 mg SUBLINGUAL Q5M PRN 12/11/20 [History Last Taken Unknown] estradiol 2 mg PO DAILY #100 tab 12/28/20 [Rx Last Taken Unknown] pantoprazole 40 mg PO DAILY #14 tab 09/17/21 [Rx Last Taken Unknown] eletriptan 20 mg PO Q2H PRN 09/20/21 [History Last Taken Unknown] fluoxetine [Prozac] 20 mg PO QHS 09/20/21 [History Last Taken Unknown] fremanezumab-vfrm [Ajovy Autoinjector] 225 mg SUBCUT QMONTH 09/20/21 [History Last Taken Unknown] hydrocortisone [Cortef] 10 mg PO QHS 09/20/21 [History Last Taken Unknown] hydrocortisone [Cortef] 15 mg PO DAILY 09/20/21 [History Last Taken 09/21/21] misoprostol 100 mcg tablet 100 mcg PO .q8 #52 tab 09/21/21 [Rx Last Taken Unknown] ondansetron 4 mg PO Q8H PRN #10 tab 09/29/21 [Rx Last Taken Unknown] potassium chloride 20 meq PO DAILY #7 tab 09/29/21 [Rx Last Taken Unknown] Allergy/AdvReac Type Severity Reaction Status Date / Time azithromycin Allergy Anaphylaxis Verified 09/29/21 12:13 [From Zithromax Z-Ruiz] bacitracin Allergy Swelling Verified 09/29/21 12:13 [From Neosporin ([id number])] bacitracin zinc Allergy Swelling Verified 09/29/21 12:13 [From Neosporin ([id number])] latex Allergy Rash Verified 09/29/21 12:13 neomycin sulfate Allergy Swelling Verified 09/29/21 12:13 [From Neosporin ([id number])] polymyxin B Allergy Swelling Verified 09/29/21 12:13 [From Neosporin ([id number])] EXCEDRIN Allergy Anaphylaxis Uncoded 09/29/21 12:13 Family History Uncle Diabetes Cancer lung Father Diabetes Grandfather CVA (cerebral vascular accident) Cancer lung, unsure additional type Uncle Cancer brain Grandmother Cancer lung and unsure additional type Surgical History History of appendectomy History of section History of laparoscopic-assisted vaginal hysterectomy History of laparoscopy History of left salpingo-oophorectomy History of thyroidectomy History of tubal ligation History of wisdom tooth extraction Hx laparoscopic cholecystectomy Social History Smoking Status: Former smoker ROS ROS ED ROS Narrative Constitutional: No fever, no chills. Positive fatigue. HEENT: No sore throat. No neck pain. No loss of vision. No rhinorrhea. Cardiovascular: No chest pain. No palpitations. No pedal edema. Respiratory: Positive cough, positive shortness of breath. Abdominal: Diffuse abdominal pain. Positive nausea. Positive vomiting. No hematemesis. Small amount of diarrhea. Genitourinary: No dysuria. No hematuria. Musculoskeletal: No myalgias. No arthralgias. Neurologic: No headaches. No dizziness. No lightheadedness. Skin: No rash. No change in color. Psychiatric: No depression. No anxiety. EXAM Physical Exam Narrative Exam Narrative: Afebrile. Vital signs noted. HEENT: Normocephalic. Atraumatic. PERRL, EOMI. Neck soft and supple. No point tenderness or step off. Cardiovascular: Regular rate and rhythm. No murmurs, rubs, or gallops appreciated. Respiratory: No tachypnea. Lungs clear to auscultation bilaterally. Occasional dry cough on examination. Gastrointestinal: Abdomen soft, mild diffuse tenderness to palpation, with normoactive bowel sounds. No rebound or guarding. Neurological: Awake. Alert. Nonfocal, nonlateralizing. Skin: No rash. Normal color. No pallor. Musculoskeletal: No pedal edema. Full range of motion extremities. Const Vital Signs: 09/29/21 12:10 09/29/21 13:16 Temperature 97.3 F L Temperature Source Temporal Pulse Rate 65 Respiratory Rate 15 16 Blood Pressure 123/83 H Blood Pressure Mean 96 Pulse Ox 100 Oxygen Delivery Method Room Air Room Air MDM MDM MDM Narrative Medical decision making narrative: Comprehensive work-up was pursued. Her CBC shows normal white count of 6.1, hemoglobin stable at 10.9, normal platelet count of 277. Potassium is low at 2.8 with a CO2 of 34. She has normal sodium of 142. With addisonian crisis, the low sodium and high potassium is not seen. Her creatinine is normal at 0.88. Calcium slightly low at 8.4. Lipase low at 53. LFTs are grossly unremarkable/not elevated. Her urinalysis shows 5 urine ketones, but no evidence of infection with negative nitrites. In discussion with the patient, I discussed potassium replacement with her. She has not had vomiting here in the emergency department. She will be administered potassium in attempt to see if she can take her oral medications. I do feel that this time she tolerates her potassium, as there is been no vomiting here in the emergency department, I do not feel that she needs to be admitted for her COVID-19 as she is not hypoxic, and satting 100% on room air. She will be given a prescription for 20 mEq of potassium to take daily for the next 7 days and follow-up with her primary care physician. She was also written a prescription for Zofran 4 mg oral disintegrating tablets #10. I will sign the patient out to the oncoming physician to ensure that she be discharged. She is in stable condition. Lab Data Attestation: I reviewed the patient's lab results. Labs: Laboratory Results - last 24 hr 09/29/21 09/29/21 09/29/21 13:01 13:01 13:47 WBC 6.1 RBC 4.02 L Hgb 10.9 L Hct 33.6 L MCV 83.6 MCH 27.1 MCHC 32.4 RDW Std Deviation 43.0 RDW Coeff of Renetta 14.0 Plt Count 277 MPV 9.7 Immature Gran % (Auto) 0.500 Neut % (Auto) 43.8 L Lymph % (Auto) 49.8 H [place] % (Auto) 5.4 Eos % (Auto) 0.3 Baso % (Auto) 0.2 Absolute Neuts (auto) 2.7 Absolute Lymphs (auto) 3.04 Nucleated RBC % 0 Sodium 142 Potassium 2.8 L Chloride 102 Carbon Dioxide 34.0 H Anion Gap 6 BUN 11 Creatinine 0.88 Estim Creat Clear Calc 89.10 Est GFR (MDRD) Af Amer 98 Est GFR (MDRD) Non-Af 81 BUN/Creatinine Ratio 12.5 Glucose 92 Calcium 8.4 L Total Bilirubin 0.50 AST 6 L ALT 16 Alkaline Phosphatase 54 Total Protein 7.1 Albumin 2.8 L Globulin 4.3 H Albumin/Globulin Ratio 0.7 L Lipase 53 L Urine Color Yellow Urine Clarity Clear Urine pH 7.0 Ur Specific [employer] 1.010 Urine Protein 30 H Urine Glucose (UA) Normal Urine Ketones 5 H Urine Occult Blood 10 H Urine Nitrite Negative Urine Bilirubin 1 H Urine Urobilinogen 4 H Ur Leukocyte Esterase 25 H Urine RBC 0-5 SEEN Urine WBC 0-5 SEEN Ur Squamous Epith Cells 0-5 SEEN Urine Bacteria 1+ Urine Mucus 0 SEEN Radiography Diagnostic Testing: Clinical Impression(s) from Imaging Studies Abdomen/Pelvis CT 09/29/21 13:25 IMPRESSION: Stable examination. Electronically Signed: Lonnie Kim MD at 14:07 EST , Service support , Discharge Plan Triage Chief Complaint: Nausea/Vomiting ED Provider: Liborio Santo Dx/Rx/DC Orders Clinical Impression: COVID-19, Nausea & vomiting, Acute hypokalemia Instructions: Coronavirus Disease 2019 (COVID-19): Overview, Coronavirus Disease 2019 (COVID-19): Caring for Yourself or Others, ED Hypokalemia, ED Vomiting (Adult) Prescriptions: New potassium chloride 20 mEq tablet extended release 20 meq PO DAILY Qty: 7 RF: 0 ondansetron 4 mg tablet,disintegrating 4 mg PO Q8H PRN (Reason: nausea and vomiting) Qty: 10 RF: 0 No Action divalproex 500 mg tablet,delayed release (DR/EC) 750 mg PO QHS RF: 0 nitroglycerin 0.3 mg tablet, sublingual 0.3 mg sublingual Q5M PRN (Reason: cp) RF: 0 hydroxyzine HCl 25 MG tablet 25 mg PO PRN PRN (Reason: Anxiety) RF: 0 levothyroxine 88 MCG tablet 112 mcg PO DAILY@0600 RF: 0 albuterol sulfate 1 INHALER inhaler 1 - 2 puff INHALATION Q4H PRN PRN (Reason: Sob &/Or Wheezing) RF: 0 estradiol 2 MG tablet 2 mg PO DAILY Qty: 100 RF: 4 pantoprazole 40 mg tablet,delayed release (DR/EC) 40 mg PO DAILY Qty: 14 RF: 0 hydrocortisone [Cortef] 20 mg Tablet 15 mg PO DAILY RF: 0 hydrocortisone [Cortef] 20 mg Tablet 10 mg PO QHS RF: 0 fluoxetine [Prozac] 20 mg Capsule 20 mg PO QHS RF: 0 eletriptan 20 mg Tablet 20 mg PO Q2H PRN (Reason: MIGRAINES) RF: 0 Ajovy Autoinjector 225 mg/1.5 mL Auto-Injector 225 mg SUBCUT QMONTH RF: 0 misoprostol 100 mcg tablet 100 mcg PO .q8 Qty: 52 RF: 0 Primary Care Provider: Kevin Stauffer Referrals: Kevin Stauffer MD [Primary Care Provider] - 10/04/21 Disposition Disposition: Home, Self Care
[2021-09-29 14:23] LABS: Bacteria 1+ /hpf (None Seen); Red Blood Cells-Urine 0-5 SEEN /hpf (0-5); Squamous Epithelial Cells - UA 0-5 SEEN /hpf (5-10); White Blood Cells 0-5 SEEN /hpf (0-5)
[2021-09-29] MEDS: Potassium Chloride Oral Tablet 20 MEQ 40 MEQ PO (15:42)
[2021-09-29 16:12] VITALS: PULSE 84
[2021-09-29 16:13] VITALS: PULSE 84; RESP 16
== END 2021-09-29 16:13 | disposition home or self-care (01) ==
PROVIDERS: Emergency Provider Emergency Medicine; PCP Family Medicine
DX: U07.1 COVID-19 (principal); R11.2 Nausea with vomiting, unspecified; E87.6 Hypokalemia; E27.1 Primary adrenocortical insufficiency; Z87.891 Personal history of nicotine dependence; Z79.899 Other long term (current) drug therapy
CPT/HCPCS: 74176; 80053; 81001; 83690; 85025; 96374; 99284; A4216; J2405

== ENCOUNTER 2021-10-28 07:31 | Day surgery (SDC) | payer MEDICAID, SELFPAY ==
[2021-10-28] MEDS: Lidocaine Jelly 2% 20 ML Syringe (URO-JET) 1 APPLIC (07:50)
[2021-10-28 08:27] VITALS: BP 124/86; PULSE 78; RESP 18; TEMP 36.6; O2SAT 98
== END 2021-10-28 23:59 | disposition home or self-care (01) ==
LOC: EN 07:32
PROVIDERS: PCP Family Medicine; Referring Provider Family Medicine; Visit Provider Internal Medicine Gastroenterology
PROC: F00ZJWZ Instrumental Swallowing and Oral Function Assessment using Swallowing Equipment (ICD-10-PCS; CPT 43235; principal; 2021-10-28 07:25)
DX: R13.10 Dysphagia, unspecified (principal)

== ENCOUNTER 2021-10-29 07:44 | Outpatient (CLI) | payer MEDICAID, SELFPAY ==
--- NOTE | 2021-10-29 08:14 | RAD_ITS ---
STUDY: X-RAY - ESOPHAGUS (BARIUM SWALLOW) WITH FLUOROSCOPY REASON FOR EXAM: Female, 26 years old. Difficulty swallowing TECHNIQUE: 17 view(s) of the esophagus were obtained following swallowing of barium. FLUOROSCOPY TIME (if supplied): (28 seconds) minutes/seconds COMPARISON: None. FINDINGS: There is no demonstrated esophageal foreign body. There is no demonstrated stricture or mucosal abnormality. Normal gastroesophageal junction, without a demonstrated hiatal hernia. The patient ingested a 12 mm tablet of barium without any difficulty. Normal visualized aortic arch and descending thoracic aorta. Normal visualized pulmonary parenchyma. Normal visualized osseous structures of the thorax. RAD/Esophagus Dual Contrast IMPRESSION: Normal plain film x-ray examination (barium swallow) of the esophagus. Electronically Signed: Lonnie Kim MD at 8:53 EST , Service support ,
== END 2021-10-29 23:59 | disposition short-term general hospital (02) ==
LOC: RAD 07:46
PROVIDERS: PCP Family Medicine; Referring Provider Internal Medicine Gastroenterology; Visit Provider Internal Medicine Gastroenterology
DX: R13.10 Dysphagia, unspecified (principal)
CPT/HCPCS: 74221

== ENCOUNTER 2021-11-02 10:22 | Outpatient (CLI) | payer MEDICAID, SELFPAY ==
--- NOTE | 2021-11-02 10:33 | NM_ITS ---
CLINICAL: 26-year-old female with reported history of abdominal pain and clinical gastroparesis. SEMI-SOLID PHASE 99m Tc SULFUR COLLOID GASTRIC EMPTYING STUDY COMPARISON: CT of the abdomen-pelvis report 09/29/2021 FINDINGS: The patient was administered 1.0 mCi of 99m Tc sulfur colloid mixed with oatmeal and consumed per os. Image acquisitions in the anterior-posterior projections for a total of 60 minutes. There is prompt visualization of the stomach. There is no gastroesophageal reflux identified. The T ? emptying was calculated to be 37.19 minutes, (Normal: 12-56 minutes). NM/Gastric Emptying Study IMPRESSION: 1. NORMAL 99m Tc sulfur colloid semi-solid phase (oatmeal) gastric emptying imaging examination. A. There is normal and preserved semi-solid phase gastric emptying compared to normal controls. (Amie et al, J Nucl Med Tech 38: 186, 2010). Electronically Signed: Chivo Hubbard DO at 21:57 EST Tel , Service support ,
== END 2021-11-02 23:59 | disposition short-term general hospital (02) ==
LOC: NM 10:23
PROVIDERS: PCP Family Medicine; Referring Provider Internal Medicine Gastroenterology; Visit Provider Internal Medicine Gastroenterology
DX: K31.84 Gastroparesis (principal)
CPT/HCPCS: 78264; A9541

== ENCOUNTER 2021-11-05 08:35 | Emergency (ER) | payer MEDICAID, SELFPAY ==
[2021-11-05 08:36] VITALS: BP 136/95; PULSE 86; RESP 16; TEMP 37; O2SAT 97; BMI 27.4
--- NOTE | 2021-11-05 09:20 | EDS_ITS ---
HPI HPI - GI History of Present Illness Chief Complaint: Chest Pain Narrative Narrative: 26-year-old female presenting with epigastric pain. She states she has a known hiatal hernia. She also states that she was told she had an abnormal upper endoscopy performed by Dr. Salomon. She states that she has been having this epigastric pain. She is already had her esophagitis dilated by Dr. Salomon in September. She reports that the pain is getting worse. She states that she did message Dr. Salomon and he is trying to find a surgeon could repair her hiatal hernia. She reports multiple episodes of vomiting last night. She has Phenergan at home. She also states she is on amitriptyline for her stomach issues. [facility] Medical History Abnormal uterine bleeding (AUB) Adenomyosis Anxiety and depression Asthma Cardiology follow-up encounter Chest pain Chronic female pelvic pain Diabetes Difficulty swallowing Dysphagia Easy bruising Endometriosis determined by laparoscopy Former smoker Gastric reflux Gastroparesis Graves disease History of diverticulitis History of echocardiogram History of IBS History of left heart catheterization History of steroid therapy History of stress test History of ulceration Low iron Migraine Mild intermittent asthma Restless legs Seizure Seizures Shortness of breath on exertion Wears glasses Home Medications hydroxyzine HCl 25 mg PO PRN PRN 10/06/19 [History Last Taken Unknown] levothyroxine 112 mcg PO DAILY@0600 03/02/20 [History Last Taken 09/21/21] albuterol sulfate 1 - 2 puff INHALATION Q4H PRN PRN 08/04/20 [History Last Taken Unknown] divalproex 500 mg tablet,delayed release 750 mg PO QHS tab 12/11/20 [History Last Taken Unknown] nitroglycerin 0.3 mg sublingual tablet 0.3 mg SUBLINGUAL Q5M PRN 12/11/20 [History Last Taken Unknown] estradiol 2 mg PO DAILY #100 tab 12/28/20 [Rx Last Taken Unknown] eletriptan 20 mg PO Q2H PRN 09/20/21 [History Last Taken Unknown] fluoxetine [Prozac] 20 mg PO QHS 09/20/21 [History Last Taken Unknown] fremanezumab-vfrm [Ajovy Autoinjector] 225 mg SUBCUT QMONTH 09/20/21 [History Last Taken Unknown] hydrocortisone [Cortef] 10 mg PO QHS 09/20/21 [History Last Taken Unknown] hydrocortisone [Cortef] 15 mg PO DAILY 09/20/21 [History Last Taken 09/21/21] misoprostol 100 mcg tablet 100 mcg PO .q8 #52 tab 09/21/21 [Rx Last Taken Unknown] ondansetron 4 mg PO Q8H PRN #10 tab 09/29/21 [Rx Last Taken Unknown] potassium chloride 20 meq PO DAILY #7 tab 09/29/21 [Rx Last Taken Unknown] amitriptyline 10 mg tablet 10 mg PO QHS #30 tab 10/11/21 [Rx Last Taken Unknown] diltiazem HCl [Cardizem] 30 mg PO TID #30 tab 11/05/21 [Rx Last Taken Unknown] sucralfate [Carafate] 10 ml PO TID 11/05/21 [History Last Taken Unknown] Allergy/AdvReac Type Severity Reaction Status Date / Time azithromycin Allergy Anaphylaxis Verified 11/05/21 08:38 [From Zithromax Z-Ruiz] bacitracin Allergy Swelling Verified 11/05/21 08:38 [From Neosporin ([id number])] bacitracin zinc Allergy Swelling Verified 11/05/21 08:38 [From Neosporin ([id number])] latex Allergy Rash Verified 11/05/21 08:38 neomycin sulfate Allergy Swelling Verified 11/05/21 08:38 [From Neosporin ([id number])] polymyxin B Allergy Swelling Verified 11/05/21 08:38 [From Neosporin ([id number])] EXCEDRIN Allergy Anaphylaxis Uncoded 11/05/21 08:38 Family History Uncle Diabetes Cancer lung Father Diabetes Grandfather CVA (cerebral vascular accident) Cancer lung, unsure additional type Uncle Cancer brain Grandmother Cancer lung and unsure additional type Surgical History History of appendectomy History of section History of laparoscopic-assisted vaginal hysterectomy History of laparoscopy History of left salpingo-oophorectomy History of thyroidectomy History of tubal ligation History of wisdom tooth extraction Hx laparoscopic cholecystectomy Social History Smoking Status: Former smoker ROS ROS ED Constitutional Constitutional ED: Denies chills or fever(s) ENT ENT ED: Reports sore throat; Denies rhinorrhea Cardiovascular Cardiovascular: Reports chest pain Respiratory/Chest Respiratory/Chest: Denies cough or dyspnea Gastrointestinal Gastrointestinal: Reports abdominal pain, nausea and vomiting Genitourinary Genitourinary ED: Denies dysuria or hematuria Musculoskeletal Musculoskeletal: Denies arthralgias or myalgias Integumentary Denies Abrasions or rash Neurologic Neurologic: Denies headache(s), paresthesias or weakness EXAM Physical Exam Const Vital Signs: 11/05/21 08:36 11/05/21 09:31 11/05/21 10:40 Temperature 98.6 F Temperature Source Oral Pulse Rate 86 65 84 Respiratory Rate 16 18 17 Blood Pressure 136/95 H 142/99 H 123/90 H Blood Pressure Mean 108 113 101 Pulse Ox 97 95 100 Oxygen Delivery Method Room Air Room Air Room Air 11/05/21 12:24 Temperature Temperature Source Pulse Rate 94 Respiratory Rate 16 Blood Pressure 119/80 Blood Pressure Mean 93 Pulse Ox 97 Oxygen Delivery Method Room Air Positive well nourished General Appearance ED: NAD; Negative for pallor HEENT Reports moist mucous membranes normocephalic and atraumatic Eyes PERRL and EOMs intact bilaterally General Eye ED: Negative for pale conjunctiva or scleral icterus Neck no lymphadenopathy and supple Resp normal respiratory effort and clear to auscultation bilaterally GI non-distended Palpation: soft and tender epigastric Neuro Sensorium / Orientation: alert, oriented to person, oriented to place and oriented to time Psych mental status grossly normal and thought process normal Skin General Skin Exam: Negative for jaundice or pallor MDM MDM MDM Narrative Medical decision making narrative: Patient presenting with epigastric pain. I did obtain an EKG and on my interpretation there are T wave inversions in leads V3 through V6 as well as 2,3, and aVF. These appear to be present on her previous EKG. No ST elevations. Chest x-ray my interpretation is no acute cardiopulmonary process and the radiologist, that there might be a focal infiltrate in the right infrahilar area. CBC near baseline. No leukocytosis. Hemoglobin stable. Renal function electrolytes are normal. LFTs are normal. Patient was given a liter of IV fluids and she has had a 0.5 mg dose of Dilaudid followed by 1 mg dose of Dilaudid for her pain she is very tearful. Depakote level came back normal. High-sensitivity troponin is initially 4 and on delta troponin is 3. Therefore she ruled out for cardiac. I obtained a CTA of the chest which is negative for acute findings. After negative work-up I spoke with Dr. Salomon regarding the patient. He stated that she does have a very small hiatal hernia but he does not believe anybody will surgically repair this. He thinks that the majority of her pain is from esophageal spasms which are severe. She is already on amitriptyline to help with this. He recommended putting on her calcium channel adal. This was provided for her and first dose was given in the ER. She is recommended to follow-up with Dr. Salomon outpatient. Impression: 1. Chest pain noncardiac 2. Esophageal spasm Lab Data Attestation: I reviewed the patient's lab results. Labs: Laboratory Results - last 24 hr 11/05/21 11/05/21 11/05/21 09:30 09:30 09:30 WBC 10.3 RBC 4.11 L Hgb 10.9 L Hct 34.6 L MCV 84.2 MCH 26.5 L MCHC 31.5 L RDW Std Deviation 43.5 RDW Coeff of Renetta 14.1 Plt Count 360 MPV 9.1 Immature Gran % (Auto) 0.600 Neut % (Auto) 45.5 L Lymph % (Auto) 45.0 H [place] % (Auto) 7.9 Eos % (Auto) 0.7 Baso % (Auto) 0.3 Absolute Neuts (auto) 4.7 Absolute Lymphs (auto) 4.61 H Nucleated RBC % 0 Platelet Estimate ADEQUATE RBC Morphology NORM C+C Sodium 140 Potassium 3.7 Chloride 103 Carbon Dioxide 31.0 Anion Gap 6 BUN 11 Creatinine 0.79 Estim Creat Clear Calc 99.25 Est GFR (MDRD) Af Amer 112 Est GFR (MDRD) Non-Af 92 BUN/Creatinine Ratio 14.0 Glucose 73 L Calcium 8.9 Total Bilirubin 0.30 AST 5 L ALT 18 Alkaline Phosphatase 48 Troponin I High Sens Total Protein 7.2 Albumin 3.0 L Globulin 4.2 Albumin/Globulin Ratio 0.7 L Lipase 51 L Valproic Acid 55 11/05/21 11/05/21 09:30 11:45 WBC RBC Hgb Hct MCV MCH MCHC RDW Std Deviation RDW Coeff of Renetta Plt Count MPV Immature Gran % (Auto) Neut % (Auto) Lymph % (Auto) [place] % (Auto) Eos % (Auto) Baso % (Auto) Absolute Neuts (auto) Absolute Lymphs (auto) Nucleated RBC % Platelet Estimate RBC Morphology Sodium Potassium Chloride Carbon Dioxide Anion Gap BUN Creatinine Estim Creat Clear Calc Est GFR (MDRD) Af Amer Est GFR (MDRD) Non-Af BUN/Creatinine Ratio Glucose Calcium Total Bilirubin AST ALT Alkaline Phosphatase Troponin I High Sens 4 3 Total Protein Albumin Globulin Albumin/Globulin Ratio Lipase Valproic Acid Radiography Diagnostic Testing: Clinical Impression(s) from Imaging Studies Chest X-Ray 11/05/21 09:35 IMPRESSION: Possible focal right infrahilar infiltrate. Electronically Signed: Lonnie Kim MD at 9:56 EST , Service support , Chest CTA 11/05/21 10:20 IMPRESSION: Minimal degree of dependent bibasilar atelectasis. No evidence of pulmonary embolism. Electronically Signed: Lonnie Kim MD at 11:15 EST , Service support , Discharge Plan Triage Chief Complaint: Chest Pain ED Provider: Rodrigo Mace Dx/Rx/DC Orders Instructions: ED Chest Pain, Noncardiac, ED Esophageal Spasm Prescriptions: New diltiazem HCl [Cardizem] 30 mg tablet 30 mg PO TID Qty: 30 RF: 0 No Action divalproex 500 mg tablet,delayed release (DR/EC) 750 mg PO QHS RF: 0 nitroglycerin 0.3 mg tablet, sublingual 0.3 mg sublingual Q5M PRN (Reason: cp) RF: 0 hydroxyzine HCl 25 MG tablet 25 mg PO PRN PRN (Reason: Anxiety) RF: 0 levothyroxine 88 MCG tablet 112 mcg PO DAILY@0600 RF: 0 albuterol sulfate 1 INHALER inhaler 1 - 2 puff INHALATION Q4H PRN PRN (Reason: Sob &/Or Wheezing) RF: 0 estradiol 2 MG tablet 2 mg PO DAILY Qty: 100 RF: 4 hydrocortisone [Cortef] 20 mg Tablet 15 mg PO DAILY RF: 0 hydrocortisone [Cortef] 20 mg Tablet 10 mg PO QHS RF: 0 fluoxetine [Prozac] 20 mg Capsule 20 mg PO QHS RF: 0 eletriptan 20 mg Tablet 20 mg PO Q2H PRN (Reason: MIGRAINES) RF: 0 Ajovy Autoinjector 225 mg/1.5 mL Auto-Injector 225 mg SUBCUT QMONTH RF: 0 potassium chloride 20 mEq tablet extended release 20 meq PO DAILY Qty: 7 RF: 0 ondansetron 4 mg tablet,disintegrating 4 mg PO Q8H PRN (Reason: nausea and vomiting) Qty: 10 RF: 0 sucralfate [Carafate] 100 mg/mL suspension 10 ml PO TID RF: 0 misoprostol 100 mcg tablet 100 mcg PO .q8 Qty: 52 RF: 0 amitriptyline 10 mg tablet 10 mg PO QHS Qty: 30 RF: 2 Primary Care Provider: Kevin Stauffer Referrals: Gabo Salomon DO [STAFF PHYSICIAN] - As Needed Kevin Stauffer MD [Primary Care Provider] - Disposition Disposition: Home, Self Care Discharge Date/Time: 11/05/21 12:33
[2021-11-05] MEDS: Morphine 4 MG/ML Syringe IV (09:30)
[2021-11-05] MEDS: Ondansetron 4 MG/2 ML Vial IV (09:30)
[2021-11-05] MEDS: 0.9% Normal Saline 1,000 ML 1000 ML IV (09:30)
[2021-11-05 09:31] VITALS: BP 142/99; PULSE 65; RESP 18; O2SAT 95
--- NOTE | 2021-11-05 09:35 | RAD_ITS ---
STUDY: X-RAY CHEST REASON FOR EXAM: Female, 26 years old. Epigastric pain TECHNIQUE: Single AP portable view of the chest. COMPARISON: Comparison is made with prior study dated 09/17/2021. FINDINGS: Mild increased markings in the right infrahilar region. This may represent an early right infrahilar infiltrate. There is no demonstrated pleural abnormality. Normal size heart. Normal mediastinum and phillip. Normal visualized pulmonary arteries. Normal visualized aortic arch and descending thoracic aorta. Normal visualized thoracic spine. Normal visualized ribs, clavicles, and shoulders. There is no demonstrated abnormality of the visualized soft tissue structures of the upper abdomen. RAD/Chest 1 View (Portable) IMPRESSION: Possible focal right infrahilar infiltrate. Electronically Signed: Lonnie Kim MD at 9:56 EST , Service support ,
[2021-11-05 09:37] LABS: Absolute Lymphocyte Count 4.61 X10^3/uL (0.83-4.51); Absolute Neutrophil Count 4.7 X10^3/uL (2.0-7.7); Basophil# 0.03 X10^3/uL; Basophil% 0.3 % (0-1); Eosinophil# 0.07 X10^3/uL; Eosinophils% 0.7 % (0-5); Hematocrit 34.6 % (37-47); Hemoglobin 10.9 g/dL (12.0-15.0); Lymphocyte # 4.61 X10^3/ul (0.83-4.51); Mean Corp Hgb Conc 31.5 g/dL (32-36); Mean Corpuscular Hgb 26.5 pg (27.0-32.0); Mean Corpuscular Volume 84.2 fL (81-99); Mean Platelet Vol. 9.1 fl (6.2-12.0); Monocyte# 0.81 X10^3/uL; Monocyte% 7.9 % (0-10); NRBC Flagged by Analyzer 0 % (0-5); Neutrophil # 4.67 X10^3/uL (2.7-7.7); Neutrophil % 45.5 % (47-70); POSITIVE MORPHOLOGY YES; Platelet Count 360 K/mm3 (150-450); RBC Distribution Width CV 14.1 % (11.6-14.6); RBC Distribution Width SD 43.5 fl (35.1-43.9); Red Blood Count 4.11 M/mm3 (4.2-5.4); White Blood Count 10.3 K/mm3 (4.4-11.0)
[2021-11-05 09:41] LABS: Differential Indicated SCAN CRITERIA MET
[2021-11-05 09:53] LABS: ALB/GLOB Ratio 0.7 RATIO (0.9-2.4); AST(SGOT) 5 U/L (15-37); Alanine Aminotransfer ALT/SGPT 18 U/L (13-56); Alkaline Phosphatase 48 U/L (45-117); Anion Gap 6 (5-15); BUN 11 mg/dL (7-18); Calcium,Total 8.9 mg/dL (8.5-10.1); Chloride 103 mmol/L (98-107); Creatinine, Serum 0.79 mg/dL (0.55-1.02); EST Glomerular Filtration Rate 92 mL/min (>60); Est Glom Filt Rate - Afr Amer 112 mL/min (>60); Estimated Creatinine Clearance 99.25 ml/min; Globulin 4.2 g/dL (2.2-4.2); Glucose 73 mg/dL (74-106); Lipase 51 U/L (73-393); Potassium 3.7 mmol/L (3.5-5.1); Protein, Total 7.2 g/dL (6.4-8.2); Sodium Level 140 mmol/L (136-145)
--- NOTE | 2021-11-05 10:06 | ED.RN ---
DR ESTEVEZ NOTIFIED PT C/O INCREASED PAIN
[2021-11-05 10:08] LABS: Valproic Acid (Depakene) Level 55 ug/mL (50-100)
[2021-11-05] MEDS: HYDROmorphone 0.5 MG/0.5 ML SYRINGE IV (10:09)
--- NOTE | 2021-11-05 10:10 | EKGRS_ITS ---
Test Reason : CP Blood Pressure : / mmHG Vent. Rate : 081 BPM Atrial Rate : 081 BPM P-R Int : 202 ms QRS Dur : 088 ms QT Int : 384 ms P-R-T Axes : 063 052 265 degrees QTc Int : 446 ms Normal sinus rhythm ST & T wave abnormality, consider inferior ischemia ; metabolic effect; medication effect ST & T wave abnormality, consider anterolateral ischemia ; metabolic effect; medication effect Abnormal ECG Confirmed by SENIA PRO, DIANE ([id number]), health editor SOILA SORIANO ([id number]) on 11/08/2021 11:05:37 AM Referred By: ROCÍO Confirmed By:DIANE CONN MD
--- NOTE | 2021-11-05 10:14 | ED.RN ---
pt reports increased pain, tearful reports it hurts to breath in her back. pt placed on cardiac catheterization technologist. assisted back into bed.
[2021-11-05 10:15] LABS: Platelet Estimate ADEQUATE (ADEQ); Red Cell Morphology NORM C+C NORMAL (NORM C&C)
--- NOTE | 2021-11-05 10:20 | CT_ITS ---
STUDY: CTA CHEST REASON FOR EXAM: Female, 26 years old. Chest pain RADIATION DOSAGE (If Supplied By Facility): CTDIvol = ( 10.04 ) mGy, DLP = ( 338.31 ) mGycm TECHNIQUE: The examination was performed with the intravenous administration of IV 100mL Isovue-370. Post-processing of the angiographic images was performed, with multiplanar reformation and 3D reconstruction. Individualized dose optimization techniques were used for this CT. COMPARISON: None. FINDINGS: Small benign-appearing bilateral axillary lymph nodes. Normal enhancement of the main pulmonary artery and right and left pulmonary arteries. Normal enhancement of the bilateral peripheral pulmonary arteries. There is no demonstrated pulmonary embolism. Normal thoracic aorta and visualized great vessels. There is no demonstrated aortic dissection. Normal heart and pericardium. Normal mediastinum. Normal hilar regions. Normal visualized trachea and bronchi. The lungs are well expanded. Minimal degree of dependent bibasilar atelectasis. Normal pleura. Normal chest wall structures. Normal osseous structures. Normal visualized upper abdomen. CT/CTA Chest W/WO Contrast IMPRESSION: Minimal degree of dependent bibasilar atelectasis. No evidence of pulmonary embolism. Electronically Signed: Lonnie Kim MD at 11:15 EST , Service support ,
[2021-11-05 10:40] VITALS: BP 123/90; PULSE 84; RESP 17; O2SAT 100
[2021-11-05] MEDS: HYDROmorphone 1 MG/ML Syringe IV (10:41)
[2021-11-05 10:42] LABS: Troponin-I HS 4 pg/mL (3.0-54.0)
[2021-11-05 12:12] LABS: Troponin-I HS 3 pg/mL (3.0-54.0)
[2021-11-05 12:24] VITALS: BP 119/80; PULSE 94; RESP 16; O2SAT 97
[2021-11-05] MEDS: dilTIAZem 30 MG Tablet PO (12:28)
== END 2021-11-05 12:33 | disposition home or self-care (01) ==
PROVIDERS: Emergency Provider Student in an Organized Health Care Education/Training Program; PCP Family Medicine; Visit Provider Student in an Organized Health Care Education/Training Program
DX: R07.89 Other chest pain (principal); K22.4 Dyskinesia of esophagus; J45.909 Unspecified asthma, uncomplicated; K21.9 Gastro-esophageal reflux disease without esophagitis; Z87.891 Personal history of nicotine dependence; Z79.899 Other long term (current) drug therapy
CPT/HCPCS: 71045; 71275; 80053; 80164; 83690; 84484; 85025; 93005; 96361; 96374; 96375; 96376; 99284; Q9967; A4216; J2405

== ENCOUNTER 2021-11-18 10:27 | Outpatient (CLI) | payer MEDICAID, SELFPAY ==
[2021-11-18 12:24] LABS: Erythrocyte Sedimentation Rate 4 mm/hr (0-30)
[2021-11-18 13:36] LABS: Rheumatoid Factor < 10.0 IU/mL (<15)
[2021-11-22 18:08] LABS: Anti-Centromere B Ab <0.2 AI (0.0-0.9); Anti-Chromatin <0.2 AI (0.0-0.9); Anti-Jo <0.2 AI (0.0-0.9); Anti-Scleroderma-70 AB <0.2 AI (0.0-0.9); RNP Ab 0.7 AI (0.0-0.9); SJOGREN'S Anti-SS-A test < 0.2 AI (0.0-0.9); SJOGREN'S Anti-SS-B test < 0.2 AI (0.0-0.9); Smith Ab <0.2 AI (0.0-0.9)
[2021-11-22 21:46] LABS: Anti-Nuclear Antibody Test Negative (.); Anti-dsDNA Ab 9 IU/mL (0-9)
== END 2021-11-18 23:59 | disposition short-term general hospital (02) ==
LOC: LAB 10:28
PROVIDERS: PCP Family Medicine; Referring Provider Nurse Practitioner Adult Health; Visit Provider Nurse Practitioner Adult Health
DX: M25.50 Pain in unspecified joint (principal)
CPT/HCPCS: 36415; 85652; 86038; 86140; 86225; 86235; 86431

== ENCOUNTER 2021-11-29 08:10 | Outpatient (CLI) | payer MEDICAID, SELFPAY ==
--- NOTE | 2021-11-29 08:11 | RAD_ITS ---
STUDY: X-RAY - ESOPHAGUS (BARIUM SWALLOW) WITH FLUOROSCOPY REASON FOR EXAM: Female, 26 years old. Eval for achalasia, abnl manometry -- timed esophagram TECHNIQUE: 22 view(s) of the esophagus were obtained following swallowing of barium. FLUOROSCOPY TIME (if supplied): (34 seconds) minutes/seconds COMPARISON: Comparison is made with prior study dated 10/29/2021. FINDINGS: There is no demonstrated esophageal foreign body. There is no demonstrated stricture or mucosal abnormality. Normal gastroesophageal junction, without a demonstrated hiatal hernia. The patient ingested a 12 mm tablet of barium without any difficulty. Normal visualized aortic arch and descending thoracic aorta. Normal visualized pulmonary parenchyma. Normal visualized osseous structures of the thorax. RAD/Esophagus Single Contrast IMPRESSION: Normal plain film x-ray examination (barium swallow) of the esophagus. Electronically Signed: Lonnie Kim MD at 9:03 EST ,
== END 2021-11-29 23:59 | disposition home or self-care (01) ==
LOC: RAD 08:10
PROVIDERS: PCP Family Medicine; Referring Provider Nurse Practitioner Adult Health; Visit Provider Nurse Practitioner Adult Health
DX: R10.13 Epigastric pain (principal); K21.9 Gastro-esophageal reflux disease without esophagitis; R11.10 Vomiting, unspecified
CPT/HCPCS: 74220

== ENCOUNTER 2021-12-02 15:48 | Emergency (ER) | payer MEDICAID, SELFPAY ==
[2021-12-02 15:49] VITALS: BP 129/98; PULSE 85; PULSE 95; RESP 16; RESP 18; TEMP 33.2; O2SAT 100; BMI 28.6
--- NOTE | 2021-12-02 16:03 | EKG12_ITS ---
Test Reason : CP Blood Pressure : / mmHG Vent. Rate : 082 BPM Atrial Rate : 082 BPM P-R Int : 200 ms QRS Dur : 098 ms QT Int : 416 ms P-R-T Axes : 036 031 017 degrees QTc Int : 486 ms Normal sinus rhythm Nonspecific ST and T wave abnormality Abnormal ECG Confirmed by SENIA PRO, DIANE ([id number]), purchasing expeditor SOILA SORIANO ([id number]) on 12/03/2021 11:06:21 AM Referred By: ROB Confirmed By:DIANE CONN MD
--- NOTE | 2021-12-02 16:09 | EDS_ITS ---
HPI History of Present Illness Chief Complaint: Chest Pain Narrative Narrative: 26-year-old female presenting with retrosternal chest pain. She has a long history of acid reflux and hiatal hernia. She sees Dr. Salomon for this. She had pain in her stomach and was diagnosed with gastritis and duodenitis. She recently had upper endoscopy by Dr. Salomon which did show this. She is also having trouble swallowing and states that she is having trouble keeping her medications down and are getting stuck in her throat. Patient did speak with Dr. Salomon today it was told to come to the emergency room for pain control. [facility] Medical History Abnormal uterine bleeding (AUB) Adenomyosis Anxiety and depression Asthma Cardiology follow-up encounter Chest pain Chronic female pelvic pain Diabetes Difficulty swallowing Dysphagia Easy bruising Endometriosis determined by laparoscopy Former smoker Gastric reflux Gastroparesis Graves disease History of diverticulitis History of echocardiogram History of IBS History of left heart catheterization History of steroid therapy History of stress test History of ulceration Low iron Migraine Mild intermittent asthma Restless legs Seizure Seizures Shortness of breath on exertion Wears glasses Home Medications hydroxyzine HCl 25 mg PO PRN PRN 10/06/19 [History Last Taken Unknown] levothyroxine 112 mcg PO DAILY@0600 03/02/20 [History Last Taken 09/21/21] albuterol sulfate 1 - 2 puff INHALATION Q4H PRN PRN 08/04/20 [History Last Taken Unknown] divalproex 500 mg tablet,delayed release 750 mg PO QHS tab 12/11/20 [History Last Taken Unknown] nitroglycerin 0.3 mg sublingual tablet 0.3 mg SUBLINGUAL Q5M PRN 12/11/20 [History Last Taken Unknown] estradiol 2 mg PO DAILY #100 tab 12/28/20 [Rx Last Taken Unknown] eletriptan 20 mg PO Q2H PRN 09/20/21 [History Last Taken Unknown] fluoxetine [Prozac] 20 mg PO QHS 09/20/21 [History Last Taken Unknown] fremanezumab-vfrm [Ajovy Autoinjector] 225 mg SUBCUT QMONTH 09/20/21 [History Last Taken Unknown] hydrocortisone [Cortef] 10 mg PO QHS 09/20/21 [History Last Taken Unknown] hydrocortisone [Cortef] 15 mg PO DAILY 09/20/21 [History Last Taken 09/21/21] ondansetron 4 mg PO Q8H PRN #10 tab 09/29/21 [Rx Last Taken Unknown] potassium chloride 20 meq PO DAILY #7 tab 09/29/21 [Rx Last Taken Unknown] sucralfate [Carafate] 10 ml PO TID 11/05/21 [History Last Taken Unknown] pantoprazole 40 mg tablet,delayed release 40 mg PO BID #60 tab 11/12/21 [Rx Last Taken Unknown] alprazolam 0.25 mg tablet 0.25 mg PO BID PRN #14 tab 11/19/21 [Rx Last Taken Unknown] amitriptyline 25 mg tablet 25 mg PO QHS #30 tab 11/19/21 [Rx Last Taken Unknown] lorazepam [Ativan] 1 mg PO TID PRN #12 tab 12/02/21 [Rx Last Taken Unknown] Allergy/AdvReac Type Severity Reaction Status Date / Time azithromycin Allergy Anaphylaxis Verified 12/02/21 15:56 [From Zithromax Z-Ruiz] bacitracin Allergy Swelling Verified 12/02/21 15:56 [From Neosporin ([id number])] bacitracin zinc Allergy Swelling Verified 12/02/21 15:56 [From Neosporin ([id number])] latex Allergy Rash Verified 12/02/21 15:56 neomycin sulfate Allergy Swelling Verified 12/02/21 15:56 [From Neosporin ([id number])] polymyxin B Allergy Swelling Verified 12/02/21 15:56 [From Neosporin ([id number])] EXCEDRIN Allergy Anaphylaxis Uncoded 12/02/21 15:56 Family History Uncle Diabetes Cancer lung Father Diabetes Grandfather CVA (cerebral vascular accident) Cancer lung, unsure additional type Uncle Cancer brain Grandmother Cancer lung and unsure additional type Surgical History History of appendectomy History of section History of laparoscopic-assisted vaginal hysterectomy History of laparoscopy History of left salpingo-oophorectomy History of thyroidectomy History of tubal ligation History of wisdom tooth extraction Hx laparoscopic cholecystectomy Social History Smoking Status: Former smoker ROS ROS ED Constitutional Constitutional ED: Denies chills or fever(s) Eyes Eyes: Denies blurry vision or change in vision ENT ENT ED: Denies rhinorrhea or sore throat Cardiovascular Cardiovascular: Reports as per HPI Respiratory/Chest Respiratory/Chest: Denies cough or dyspnea Gastrointestinal Gastrointestinal: Reports nausea; Denies abdominal pain or vomiting Genitourinary Genitourinary ED: Denies dysuria or hematuria Musculoskeletal Musculoskeletal: Denies arthralgias or myalgias Integumentary Denies Abrasions or rash Neurologic Neurologic: Denies headache(s) or weakness Psychiatric Psychiatric: Denies anxiety or depression EXAM Physical Exam Const Vital Signs: 12/02/21 15:49 12/02/21 15:56 12/02/21 16:13 Temperature 91.7 F L Temperature Source Temporal Pulse Rate 95 74 Respiratory Rate 18 Respiratory Effort Normal Non-Labored Blood Pressure 129/98 H 133/98 H Blood Pressure Mean 108 Pulse Ox 100 96 Oxygen Delivery Method Room Air Room Air 12/02/21 16:16 Temperature Temperature Source Pulse Rate 88 Respiratory Rate 17 Respiratory Effort Blood Pressure 113/68 Blood Pressure Mean 83 Pulse Ox 94 Oxygen Delivery Method Room Air Positive well nourished General Appearance ED: NAD HEENT Reports moist mucous membranes normocephalic and atraumatic Eyes PERRL and EOMs intact bilaterally Resp normal respiratory effort Cardio regular rate and regular rhythm GI normal to inspection, nondistended, normoactive bowel sounds Extremity normal to inspection General Extremety ED: Negative for edema or tenderness General Extremity: Negative for edema Neuro oriented x3 Sensorium / Orientation: awake and alert Psych mental status grossly normal Skin no rashes or lesions noted and no wounds Heart Score History: Slightly/Non-Suspicious ECG: Normal Age: </= 45 years Risk Factors: No Risk Factors Troponin: </= Normal Limit Score: 0 MDM MDM MDM Narrative Medical decision making narrative: Patient presenting with chest pain. EKG on my interpretation shows normal sinus rhythm with ventricular rate of 82 bpm. There does appear to be T wave inversions in V3, V5, V6. V4 #2 is artifact to be interpreted. Patient given nitroglycerin and Dilaudid with Zofran. EKG is unchanged from previous. CBC and CMP are unremarkable. High-sensitivity troponin is less than 3. Patient is already had a cardiac work-up for this which was negative as well. She had a CTA recently which was negative for PE. Patient initially given Dilaudid and Zofran as well as nitroglycerin. She states that this did not give her much relief. I spoke with Dr. Salmoon who recommended trying Ativan. Patient has been trying to use Xanax at home but she states this is not helping. Dr. Salomon believes there is a component of anxiety which is worsening her spasm and 1 mg of Ativan was given and the patient reports relief. She states her pain is not related 0 but it is improved. Dr. Salomon requested that I send her home with prescription for Ativan. He will try to get her follow-up with a specialty try to figure out where her source of pain is coming from. Patient is discharged home in stable condition. Impression: 1. Chest pain noncardiac 2. Esophageal spasm Lab Data Attestation: I reviewed the patient's lab results. Labs: Laboratory Results - last 24 hr 12/02/21 12/02/21 12/02/21 16:02 16:02 16:02 WBC 9.6 RBC 4.34 Hgb 11.7 L Hct 36.9 L MCV 85.0 MCH 27.0 MCHC 31.7 L RDW Std Deviation 44.0 H RDW Coeff of Renetta 14.1 Plt Count 362 MPV 9.2 Immature Gran % (Auto) 0.700 Neut % (Auto) 57.8 Lymph % (Auto) 33.1 [place] % (Auto) 7.0 Eos % (Auto) 0.9 Baso % (Auto) 0.5 Absolute Neuts (auto) 5.5 Absolute Lymphs (auto) 3.18 Nucleated RBC % 0 Sodium 137 Potassium 3.7 Chloride 104 Carbon Dioxide 29.0 Anion Gap 4 L BUN 7 Creatinine 0.83 Estim Creat Clear Calc 94.47 Est GFR (MDRD) Af Amer 104 Est GFR (MDRD) Non-Af 86 BUN/Creatinine Ratio 8.4 L Glucose 93 Calcium 8.7 Total Bilirubin 0.30 Direct Bilirubin 0.08 AST 11 L ALT 21 Alkaline Phosphatase 63 Troponin I High Sens < 3 L Total Protein 7.7 Albumin 3.3 Globulin 4.4 H Lipase 71 L Radiography Diagnostic Testing: Clinical Impression(s) from Imaging Studies Chest X-Ray 12/02/21 16:30 IMPRESSION: No radiographic evidence of acute cardiopulmonary disease. at 1641 Reported and signed by: Crystal Gonzalez MD Electronically Signed: Crystal Gonzalez MD at 16:40 EST Reading Location ID and State: [facility] / [place] Tel , Service support , Discharge Plan Triage Chief Complaint: Chest Pain ED Provider: Rodrigo Mace Dx/Rx/DC Orders Instructions: ED Chest Pain, Noncardiac, ED Esophageal Spasm Prescriptions: New lorazepam [Ativan] 1 mg tablet 1 mg PO TID PRN (Reason: anxiety) Qty: 12 RF: 0 No Action divalproex 500 mg tablet,delayed release (DR/EC) 750 mg PO QHS RF: 0 nitroglycerin 0.3 mg tablet, sublingual 0.3 mg sublingual Q5M PRN (Reason: cp) RF: 0 pantoprazole 40 mg tablet,delayed release (DR/EC) 40 mg PO BID Qty: 60 RF: 1 hydroxyzine HCl 25 MG tablet 25 mg PO PRN PRN (Reason: Anxiety) RF: 0 levothyroxine 88 MCG tablet 112 mcg PO DAILY@0600 RF: 0 albuterol sulfate 1 INHALER inhaler 1 - 2 puff INHALATION Q4H PRN PRN (Reason: Sob &/Or Wheezing) RF: 0 estradiol 2 MG tablet 2 mg PO DAILY Qty: 100 RF: 4 hydrocortisone [Cortef] 20 mg Tablet 15 mg PO DAILY RF: 0 hydrocortisone [Cortef] 20 mg Tablet 10 mg PO QHS RF: 0 fluoxetine [Prozac] 20 mg Capsule 20 mg PO QHS RF: 0 eletriptan 20 mg Tablet 20 mg PO Q2H PRN (Reason: MIGRAINES) RF: 0 Ajovy Autoinjector 225 mg/1.5 mL Auto-Injector 225 mg SUBCUT QMONTH RF: 0 potassium chloride 20 mEq tablet extended release 20 meq PO DAILY Qty: 7 RF: 0 ondansetron 4 mg tablet,disintegrating 4 mg PO Q8H PRN (Reason: nausea and vomiting) Qty: 10 RF: 0 sucralfate [Carafate] 100 mg/mL suspension 10 ml PO TID RF: 0 amitriptyline 25 mg tablet 25 mg PO QHS Qty: 30 RF: 2 alprazolam 0.25 mg tablet 0.25 mg PO BID PRN (Reason: anxiety) Qty: 14 RF: 0 Primary Care Provider: Kevin Stauffer Referrals: Kevin Stauffer MD [Primary Care Provider] - Disposition Disposition: Home, Self Care
[2021-12-02 16:13] VITALS: BP 133/98; PULSE 74; O2SAT 96
[2021-12-02] MEDS: Nitroglycerin SL (ED/IMG/CATH) 0.4 MG TABLET SL (16:13)
[2021-12-02 16:16] VITALS: BP 113/68; PULSE 88; RESP 17; O2SAT 94
[2021-12-02] MEDS: Ondansetron 4 MG/2 ML Vial IV (16:20)
[2021-12-02] MEDS: HYDROmorphone 0.5 MG/0.5 ML SYRINGE IV (16:20)
[2021-12-02 16:21] LABS: Absolute Lymphocyte Count 3.18 X10^3/uL (0.83-4.51); Absolute Neutrophil Count 5.5 X10^3/uL (2.0-7.7); Basophil# 0.05 X10^3/uL; Basophil% 0.5 % (0-1); Eosinophil# 0.09 X10^3/uL; Eosinophils% 0.9 % (0-5); Hematocrit 36.9 % (37-47); Hemoglobin 11.7 g/dL (12.0-15.0); Lymphocyte # 3.18 X10^3/ul (0.83-4.51); Lymphocyte % 33.1 % (19-41); Mean Corp Hgb Conc 31.7 g/dL (32-36); Mean Platelet Vol. 9.2 fl (6.2-12.0); Monocyte# 0.67 X10^3/uL; NRBC Flagged by Analyzer 0 % (0-5); Neutrophil # 5.54 X10^3/uL (2.7-7.7); Neutrophil % 57.8 % (47-70); Platelet Count 362 K/mm3 (150-450); RBC Distribution Width CV 14.1 % (11.6-14.6); Red Blood Count 4.34 M/mm3 (4.2-5.4); White Blood Count 9.6 K/mm3 (4.4-11.0)
--- NOTE | 2021-12-02 16:30 | RAD_ITS ---
HISTORY: chest pain. TECHNIQUE: XR Chest 1 View. # of images incl. paperwork: 1. COMPARISON: 11/05/2021. FINDINGS: CARDIOMEDIASTINAL STRUCTURES: Cardiac silhouette not enlarged. Mediastinal contour unremarkable. LUNGS: Calcified granuloma in the left midlung again seen. PLEURA: No pleural effusion or pneumothorax. OSSEOUS STRUCTURES: Unremarkable. RAD/Chest 1 View (Portable) IMPRESSION: No radiographic evidence of acute cardiopulmonary disease. at 1641 Reported and signed by: Crystal Gonzalez MD Electronically Signed: Crystal Gonzalez MD at 16:40 EST ,
[2021-12-02 16:34] LABS: Anion Gap 4 (5-15); BUN 7 mg/dL (7-18); BUN/Creat Ratio 8.4 RATIO (10-20); Calcium,Total 8.7 mg/dL (8.5-10.1); Chloride 104 mmol/L (98-107); Creatinine, Serum 0.83 mg/dL (0.55-1.02); EST Glomerular Filtration Rate 86 mL/min (>60); Est Glom Filt Rate - Afr Amer 104 mL/min (>60); Estimated Creatinine Clearance 94.47 ml/min; Glucose 93 mg/dL (74-106); Lipase 71 U/L (73-393); Potassium 3.7 mmol/L (3.5-5.1); Sodium Level 137 mmol/L (136-145); Troponin-I HS < 3 pg/mL (3.0-54.0)
[2021-12-02 16:38] LABS: AST(SGOT) 11 U/L (15-37); Alanine Aminotransfer ALT/SGPT 21 U/L (13-56); Albumin, Serum 3.3 g/dL (3.2-5.0); Alkaline Phosphatase 63 U/L (45-117); Bilirubin, Direct 0.08 mg/dL (0.00-0.30); Globulin 4.4 g/dL (2.2-4.2); Protein, Total 7.7 g/dL (6.4-8.2)
[2021-12-02] MEDS: LORazepam 2 MG/ML Syringe 1 MG IV (17:41)
[2021-12-02 18:20] VITALS: BP 124/68; PULSE 71; RESP 16; O2SAT 98
== END 2021-12-02 18:21 | disposition home or self-care (01) ==
PROVIDERS: Emergency Provider Student in an Organized Health Care Education/Training Program; PCP Family Medicine; Visit Provider Student in an Organized Health Care Education/Training Program
DX: R07.89 Other chest pain (principal); K22.4 Dyskinesia of esophagus; Z87.891 Personal history of nicotine dependence
CPT/HCPCS: 71045; 80048; 80076; 83690; 84484; 85025; 93005; 96374; 96375; 99284; A4216; J2405

== ENCOUNTER 2021-12-19 09:34 | Emergency (ER) | payer MEDICAID, SELFPAY ==
[2021-12-19 09:35] VITALS: BP 131/83; PULSE 89; RESP 20; TEMP 36.9; O2SAT 100; BMI 29.3
--- NOTE | 2021-12-19 09:54 | EKG12_ITS ---
Test Reason : Blood Pressure : / mmHG Vent. Rate : 070 BPM Atrial Rate : 070 BPM P-R Int : 158 ms QRS Dur : 098 ms QT Int : 382 ms P-R-T Axes : 048 043 -24 degrees QTc Int : 412 ms Normal sinus rhythm ST & T wave abnormality, consider lateral ischemia Abnormal ECG Confirmed by JAELYN PRO, ELEUTERIO ([id number]), development editor SOILA SORIANO ([id number]) on 12/21/2021 10:59:24 AM Referred By: RU Confirmed By:ELEUTERIO CHRISTY MD
--- NOTE | 2021-12-19 09:58 | EDS_ITS ---
HPI History of Present Illness Chief Complaint: Chest Pain Detail of Chief Complaint: Chest pain and throat pain x5 days Informant: patient Onset/Context/Timing Current Severity: Severe Narrative Narrative: Patient presents to the emergency department chief complaint of pain in her chest that sharp and radiates towards her throat x5 days. Patient states that she has been dealing with similar issues since August 2021. Patient has been seen by GI Dr. Salomon and has had EGD and was told she had a Schatzki ring as well as a hiatal hernia. Patient has been taking Carafate as well as Nexium and Levsin. She is scheduled to have another EGD by another physician for a second opinion tomorrow. Patient states that she has been seen in the emergency department several times for this. Patient denies fever. She has vomited 4 times today. Pain is severe. She denies blood in her stool or black tarry stool. Prior similar symptoms: Yes PFSH PFSH Medical History Abnormal uterine bleeding (AUB) Adenomyosis Anxiety and depression Asthma Cardiology follow-up encounter Chest pain Chronic female pelvic pain Diabetes Difficulty swallowing Dysphagia Easy bruising Endometriosis determined by laparoscopy Former smoker Gastric reflux Gastroparesis Graves disease History of diverticulitis History of echocardiogram History of IBS History of left heart catheterization History of steroid therapy History of stress test History of ulceration Low iron Migraine Mild intermittent asthma Restless legs Seizure Seizures Shortness of breath on exertion Wears glasses Home Medications hydroxyzine HCl 25 mg PO PRN PRN 10/06/19 [History Last Taken Unknown] levothyroxine 112 mcg PO DAILY@0600 03/02/20 [History Last Taken 09/21/21] albuterol sulfate 1 - 2 puff INHALATION Q4H PRN PRN 08/04/20 [History Last Taken Unknown] divalproex 500 mg tablet,delayed release 750 mg PO QHS tab 12/11/20 [History Last Taken Unknown] nitroglycerin 0.3 mg sublingual tablet 0.3 mg SUBLINGUAL Q5M PRN 12/11/20 [History Last Taken Unknown] estradiol 2 mg PO DAILY #100 tab 12/28/20 [Rx Last Taken Unknown] eletriptan 20 mg PO Q2H PRN 09/20/21 [History Last Taken Unknown] fluoxetine [Prozac] 20 mg PO QHS 09/20/21 [History Last Taken Unknown] fremanezumab-vfrm [Ajovy Autoinjector] 225 mg SUBCUT QMONTH 09/20/21 [History Last Taken Unknown] hydrocortisone [Cortef] 15 mg PO DAILY 09/20/21 [History Last Taken 09/21/21] ondansetron 4 mg PO Q8H PRN #10 tab 09/29/21 [Rx Last Taken Unknown] potassium chloride 20 meq PO DAILY #7 tab 09/29/21 [Rx Last Taken Unknown] sucralfate [Carafate] 10 ml PO TID 11/05/21 [History Last Taken Unknown] pantoprazole 40 mg tablet,delayed release 40 mg PO BID #60 tab 11/12/21 [Rx Last Taken Unknown] amitriptyline 25 mg tablet 25 mg PO QHS #30 tab 11/19/21 [Rx Last Taken Unknown] lorazepam [Ativan] 1 mg PO TID PRN #12 tab 12/02/21 [Rx Last Taken Unknown] alprazolam 0.5 mg tablet 0.5 mg PO TID PRN #30 tab 12/16/21 [Rx Last Taken Unknown] esomeprazole magnesium [Nexium] 40 mg PO DAILY 12/19/21 [History Last Taken Unknown] hydrocodone-acetaminophen 1 tab PO Q4H PRN PRN 2 Days #5 tablet 12/19/21 [Rx Last Taken Unknown] hyoscyamine sulfate [Levsin] 0.125 mg PO Q4H PRN PRN 12/19/21 [History Last Taken Unknown] Allergy/AdvReac Type Severity Reaction Status Date / Time azithromycin Allergy Anaphylaxis Verified 12/02/21 15:56 [From Zithromax Z-Ruiz] bacitracin Allergy Swelling Verified 12/02/21 15:56 [From Neosporin ([id number])] bacitracin zinc Allergy Swelling Verified 12/02/21 15:56 [From Neosporin ([id number])] latex Allergy Rash Verified 12/02/21 15:56 neomycin sulfate Allergy Swelling Verified 12/02/21 15:56 [From Neosporin ([id number])] polymyxin B Allergy Swelling Verified 12/02/21 15:56 [From Neosporin ([id number])] EXCEDRIN Allergy Anaphylaxis Uncoded 12/02/21 15:56 Family History Uncle Diabetes Cancer lung Father Diabetes Grandfather CVA (cerebral vascular accident) Cancer lung, unsure additional type Uncle Cancer brain Grandmother Cancer lung and unsure additional type Surgical History History of appendectomy History of section History of laparoscopic-assisted vaginal hysterectomy History of laparoscopy History of left salpingo-oophorectomy History of thyroidectomy History of tubal ligation History of wisdom tooth extraction Hx laparoscopic cholecystectomy Social History Smoking Status: Former smoker ROS ROS ED Constitutional Constitutional ED: Reports systems reviewed and no addt'l complaints, except as documented; Denies body ache(s), change in weight or chills Eyes Eyes: Denies acute decrease in peripheral vision, change in vision, double vision or loss of vision ENT ENT ED: Reports none; Denies ear pain, lip swelling, loss taste/smell, neck pain, otalgia or sore throat Cardiovascular Cardiovascular: Reports none and chest pain; Denies abdominal pain, chest pain with activity, leg edema, lightheadedness, palpitations, rapid heart rate or syncope Respiratory/Chest Respiratory/Chest: Reports none; Denies change in mental status, dry cough, dyspnea, hemoptysis, shortness of breath at rest or shortness of breath with exertion Gastrointestinal Gastrointestinal: Reports none, nausea and vomiting; Denies abdominal pain, change in stool character, diarrhea, hematemesis, hematochezia, melena or rectal bleeding Genitourinary Genitourinary ED: Reports none; Denies abdominal discomfort, anuria, dysuria, genital pain or polyuria Musculoskeletal Musculoskeletal: Reports none; Denies arthralgias, back pain, difficulty walking, extremity pain, muscle weakness or myalgias Integumentary Reports none; Denies abscess or rash Neurologic Neurologic: Reports none; Denies abnormal gait, confusion, focal weakness, frequent falls, headache(s), loss of vision, numbness, paresthesias, radicular pain, vertigo or weakness Psychiatric Psychiatric: Reports systems reviewed and no addt'l complaints, except as documented and none; Denies behavioral changes, confusion, difficulty conc entrating, hallucinations, suicidal ideation, tactile hallucinations or visual hallucinations Endocrine Endocrinology: Denies none, cold intolerance, excessive sweating, fatigue or heat intolerance Hematologic/Lymphatic Hematologic/Lymphatic: Reports none; Denies anemia, easy bleeding or easy bruising Allergic/Immunologic Allergic/Immunologic ED: Denies as per HPI, none, lip swelling, mouth swelling, throat swelling, tongue swelling or hives EXAM Physical Exam Const Vital Signs: 12/19/21 09:35 12/19/21 09:52 12/19/21 10:36 Temperature 98.4 F Temperature Source Temporal Pulse Rate 89 93 Respiratory Rate 20 H 15 Respiratory Effort Short of Breath Blood Pressure 131/83 H 116/79 Blood Pressure Mean 99 91 Pulse Ox 100 97 Oxygen Delivery Method Room Air Room Air Positive well nourished and well developed General Appearance ED: well developed and NAD HEENT Reports TM's clear and moist mucous membranes HEENT Narrative: Patient has old thyroidectomy scar with no edema noted over the anterior throat. No masses palpated. normocephalic and atraumatic; Negative for trauma or tenderness Tympanic Membrane ED: Yes TM's clear Eyes PERRL and EOMs intact bilaterally General Eye ED: Negative for pale conjunctiva or scleral icterus Neck no lymphadenopathy, supple and no JVD General: Negative for tenderness Chest Wall inspection of chest normal and palpation of chest normal Chest: Negative for tenderness Resp normal respiratory effort and clear to auscultation bilaterally Effort and Inspection: Negative for respiratory distress or pain with movement Auscultation: Negative for rhonchi, wheezes or diminished lung sounds Cardio regular rate, regular rhythm, S1 normal heart sound, S2 normal heart sound and no murmurs Peripheral Pulses: pulses 2+ throughout GI normal to inspection, nondistended, normoactive bowel sounds, soft to palpation, non-tender, non-distended and no masses Back/Spine no CVA tenderness and no thoracic nor lumbar tenderness Extremity normal to inspection General Extremety ED: Negative for edema General Extremity: Negative for edema Neuro oriented x3, CN's II-XII intact bilaterally, no sensory deficits noted and gait normal Sensorium / Orientation: awake, alert, oriented to person, oriented to place and oriented to time Motor Exam: strength 5/5 throughout and strength abnormal Psych mental status grossly normal Skin no rashes or lesions noted and no wounds MDM MDM MDM Narrative Medical decision making narrative: IV line established on arrival. Patient was medicated Dilaudid 1 mg IV as well as Ativan 1 mg IV. She was ordered a GI cocktail but she stated that she could not swallow it. Patient continued complaint of pain and was given a second milligram of Dilaudid IV. Lab work-up was unremarkable. Chest x-ray unremarkable. EKG was unremarkable. She did feel markedly improved after the second Dilaudid dose. At this point I do not feel she has a surgical emergency and feel she can follow-up tomorrow with her senior interactive producer for her scope. I will write her a prescription for few Doss for pain as needed for severe pain. Patient advised to return if fever, hemoptysis, black tarry stool, or condition should worsen anyway. Lab Data Attestation: I reviewed the patient's lab results. Labs: Laboratory Results - last 24 hr 12/19/21 12/19/21 10:10 10:10 WBC 9.8 RBC 4.30 Hgb 11.5 L Hct 36.0 L MCV 83.7 MCH 26.7 L MCHC 31.9 L RDW Std Deviation 44.5 H RDW Coeff of Renetta 14.6 Plt Count 376 MPV 9.2 Immature Gran % (Auto) 0.300 Neut % (Auto) 52.2 Lymph % (Auto) 37.6 [place] % (Auto) 8.4 Eos % (Auto) 1.2 Baso % (Auto) 0.3 Absolute Neuts (auto) 5.1 Absolute Lymphs (auto) 3.68 Nucleated RBC % 0 Sodium 139 Potassium 3.6 Chloride 106 Carbon Dioxide 28.0 Anion Gap 5 BUN 9 Creatinine 0.84 Estim Creat Clear Calc 89.72 Est GFR (MDRD) Af Amer 104 Est GFR (MDRD) Non-Af 86 BUN/Creatinine Ratio 10.8 Glucose 79 Calcium 9.0 Total Bilirubin 0.60 AST 10 L ALT 22 Alkaline Phosphatase 56 Troponin I High Sens < 3 L Total Protein 7.4 Albumin 3.2 Globulin 4.2 Albumin/Globulin Ratio 0.8 L Lipase 64 L Radiography Diagnostic Testing: Clinical Impression(s) from Imaging Studies Chest X-Ray 12/19/21 10:42 IMPRESSION: Normal x-ray examination of the chest. Electronically Signed: Shahana Taylor MD at 11:30 EST , 1 view chest x-ray obtained interpreted by myself no acute disease process. Radiology in agreement. EKG Initial EKG: Attestation: I personally reviewed and interpreted this EKG as follows: Comments: Sinus rhythm with a ventricular rate of [address] changes Prior EKG tracings: available for review Prior: Unchanged Discharge Plan Triage Chief Complaint: Chest Pain ED Provider: Herberth Spear Dx/Rx/DC Orders Clinical Impression: Chest pain Instructions: ED Chest Pain, Uncertain Cause Prescriptions: New hydrocodone-acetaminophen [hydrocodone-acetaminophen] 1 TABLET tablet 1 tab PO Q4H PRN PRN (Reason: Pain) 2 Days Qty: 5 RF: 0 No Action divalproex 500 mg tablet,delayed release (DR/EC) 750 mg PO QHS RF: 0 nitroglycerin 0.3 mg tablet, sublingual 0.3 mg sublingual Q5M PRN (Reason: cp) RF: 0 pantoprazole 40 mg tablet,delayed release (DR/EC) 40 mg PO BID Qty: 60 RF: 1 hydroxyzine HCl 25 MG tablet 25 mg PO PRN PRN (Reason: Anxiety) RF: 0 levothyroxine 88 MCG tablet 112 mcg PO DAILY@0600 RF: 0 albuterol sulfate 1 INHALER inhaler 1 - 2 puff INHALATION Q4H PRN PRN (Reason: Sob &/Or Wheezing) RF: 0 estradiol 2 MG tablet 2 mg PO DAILY Qty: 100 RF: 4 hydrocortisone [Cortef] 20 mg Tablet 15 mg PO DAILY RF: 0 fluoxetine [Prozac] 20 mg Capsule 20 mg PO QHS RF: 0 eletriptan 20 mg Tablet 20 mg PO Q2H PRN (Reason: MIGRAINES) RF: 0 Ajovy Autoinjector 225 mg/1.5 mL Auto-Injector 225 mg SUBCUT QMONTH RF: 0 potassium chloride 20 mEq tablet extended release 20 meq PO DAILY Qty: 7 RF: 0 ondansetron 4 mg tablet,disintegrating 4 mg PO Q8H PRN (Reason: nausea and vomiting) Qty: 10 RF: 0 sucralfate [Carafate] 100 mg/mL suspension 10 ml PO TID RF: 0 lorazepam [Ativan] 1 mg tablet 1 mg PO TID PRN (Reason: anxiety) Qty: 12 RF: 0 hyoscyamine sulfate [Levsin] 0.125 mg Tablet 0.125 mg PO Q4H PRN PRN (Reason: swallowing) RF: 0 esomeprazole magnesium [Nexium] 40 mg Capsule,Delayed Release(Dr/Ec) 40 mg PO DAILY RF: 0 amitriptyline 25 mg tablet 25 mg PO QHS Qty: 30 RF: 2 alprazolam [Xanax] 0.5 mg tablet 0.5 mg PO TID PRN (Reason: anxiety) Qty: 30 RF: 0 Primary Care Provider: Kevin Stauffer Referrals: Kevin Stauffer MD [Primary Care Provider] - Activity Restrictions/Additional Instructions: See your senior interactive producer tomorrow for your EGD. Disposition Disposition: Home, Self Care
[2021-12-19] MEDS: 0.9% Normal Saline 1,000 ML 150 ML IV (10:20)
[2021-12-19] MEDS: Ondansetron 4 MG/2 ML Vial IV (10:21)
[2021-12-19] MEDS: Mag Hydrox/Al Hydrox/Simeth 30 ML UDC PO (10:21)
[2021-12-19] MEDS: LORazepam 2 MG/ML Syringe 1 MG IV (10:21)
[2021-12-19] MEDS: HYDROmorphone 1 MG/ML Syringe IV ×2 (10:21→11:15)
[2021-12-19 10:24] LABS: Absolute Lymphocyte Count 3.68 X10^3/uL (0.83-4.51); Absolute Neutrophil Count 5.1 X10^3/uL (2.0-7.7); Basophil# 0.03 X10^3/uL; Basophil% 0.3 % (0-1); Eosinophil# 0.12 X10^3/uL; Eosinophils% 1.2 % (0-5); Hemoglobin 11.5 g/dL (12.0-15.0); Lymphocyte # 3.68 X10^3/ul (0.83-4.51); Lymphocyte % 37.6 % (19-41); Mean Corp Hgb Conc 31.9 g/dL (32-36); Mean Corpuscular Hgb 26.7 pg (27.0-32.0); Mean Corpuscular Volume 83.7 fL (81-99); Mean Platelet Vol. 9.2 fl (6.2-12.0); Monocyte# 0.82 X10^3/uL; Monocyte% 8.4 % (0-10); NRBC Flagged by Analyzer 0 % (0-5); Neutrophil % 52.2 % (47-70); Platelet Count 376 K/mm3 (150-450); RBC Distribution Width CV 14.6 % (11.6-14.6); RBC Distribution Width SD 44.5 fl (35.1-43.9); White Blood Count 9.8 K/mm3 (4.4-11.0)
[2021-12-19 10:36] VITALS: BP 116/79; PULSE 93; RESP 15; O2SAT 97
[2021-12-19 10:37] LABS: ALB/GLOB Ratio 0.8 RATIO (0.9-2.4); AST(SGOT) 10 U/L (15-37); Alanine Aminotransfer ALT/SGPT 22 U/L (13-56); Albumin, Serum 3.2 g/dL (3.2-5.0); Alkaline Phosphatase 56 U/L (45-117); Anion Gap 5 (5-15); BUN 9 mg/dL (7-18); BUN/Creat Ratio 10.8 RATIO (10-20); Chloride 106 mmol/L (98-107); Creatinine, Serum 0.84 mg/dL (0.55-1.02); EST Glomerular Filtration Rate 86 mL/min (>60); Est Glom Filt Rate - Afr Amer 104 mL/min (>60); Estimated Creatinine Clearance 89.72 ml/min; Globulin 4.2 g/dL (2.2-4.2); Glucose 79 mg/dL (74-106); Lipase 64 U/L (73-393); Potassium 3.6 mmol/L (3.5-5.1); Protein, Total 7.4 g/dL (6.4-8.2); Sodium Level 139 mmol/L (136-145); Troponin-I HS < 3 pg/mL (3.0-54.0)
--- NOTE | 2021-12-19 10:37 | ED.RN ---
Patient unable to swallow GI cocktail, ended up spitting it out. Dr. Garcia aware
--- NOTE | 2021-12-19 10:42 | RAD_ITS ---
STUDY: X-RAY CHEST REASON FOR EXAM: Female, 26 years old. chest pain Technologist Notes PT C/O CP AND PAIN IN THROAT. I HAVE TO TELL MYSELF TO SWALLOW GETTING WORSE FOR THE PAST 4 DAYS. I''VE BEEN DEALING WITH THIS SINCE AUGUST TECHNIQUE: Single AP portable view of the chest. COMPARISON: Chest x-ray 12/02/2021, CTA chest 11/05/2021 FINDINGS: Cardiac monitoring leads are present. The lungs are clear and expanded. There is no demonstrated pleural abnormality. Normal size heart. Normal mediastinum and phillip. Normal visualized pulmonary arteries. Normal visualized aortic arch and descending thoracic aorta. Normal visualized thoracic spine. Normal visualized ribs, clavicles, and shoulders. There is no demonstrated abnormality of the visualized soft tissue structures of the upper abdomen. RAD/Chest 1 View (Portable) IMPRESSION: Normal x-ray examination of the chest. Electronically Signed: Shahana Taylor MD at 11:30 EST ,
[2021-12-19 12:12] VITALS: BP 105/83; PULSE 88; RESP 12
== END 2021-12-19 12:17 | disposition home or self-care (01) ==
PROVIDERS: Emergency Provider Emergency Medicine; PCP Family Medicine; Visit Provider Emergency Medicine
DX: R07.9 Chest pain, unspecified (principal); K21.9 Gastro-esophageal reflux disease without esophagitis; J45.909 Unspecified asthma, uncomplicated; G43.909 Migraine, unspecified, not intractable, without status migrainosus; Z87.891 Personal history of nicotine dependence; Z79.899 Other long term (current) drug therapy
CPT/HCPCS: 71045; 80053; 83690; 84484; 85025; 93005; 96374; 96375; 96376; 99283; J7030; A4216; J2405

== ENCOUNTER 2021-12-21 14:20 | Emergency (ER) | payer MEDICAID, SELFPAY ==
[2021-12-21 14:21] VITALS: BP 125/84; PULSE 69; RESP 15; TEMP 36.4; O2SAT 99; BMI 29.4
[2021-12-21 14:44] VITALS: BP 125/84; PULSE 69; RESP 15; TEMP 36.4; O2SAT 99
--- NOTE | 2021-12-21 14:50 | EX.ED.DYSGE1 ---
HPI History of Present Illness Chief Complaint: Nausea/Vomiting Informant: patient Onset/Context/Timing Onset: Weeks Current Severity: Moderate Maximum Severity: Severe Narrative Narrative: Patient presents secondary to continued epigastric pain radiating up into her chest. She has been having problems similar to this since last August. She is undergone 2 EGDs, second 1 yesterday. She is been diagnosed with a hiatal hernia, Schatzki's ring, and esophagitis. Biopsies were taken yesterday and they are awaiting pathology results. Patient is already on Carafate and Protonix. Patient states she called her doctor today when she was unable to get pain under control and they asked her to come to the emergency room. [facility] Medical History Abnormal uterine bleeding (AUB) Addisons disease Adenomyosis Anxiety and depression Asthma Cardiology follow-up encounter Chest pain Chronic female pelvic pain Diabetes Difficulty swallowing Dysphagia Easy bruising Endometriosis determined by laparoscopy Former smoker Gastric reflux Gastroparesis Graves disease History of diverticulitis History of echocardiogram History of IBS History of left heart catheterization History of steroid therapy History of stress test History of ulceration Low iron Migraine Mild intermittent asthma Restless legs Seizures Shortness of breath on exertion Wears glasses Home Medications hydroxyzine HCl 25 mg PO PRN PRN 10/06/19 [History Last Taken Unknown] levothyroxine 112 mcg PO DAILY@0600 03/02/20 [History Last Taken 09/21/21] albuterol sulfate 1 - 2 puff INHALATION Q4H PRN PRN 08/04/20 [History Last Taken Unknown] divalproex 500 mg tablet,delayed release 750 mg PO QHS tab 12/11/20 [History Last Taken Unknown] nitroglycerin 0.3 mg sublingual tablet 0.3 mg SUBLINGUAL Q5M PRN 12/11/20 [History Last Taken Unknown] estradiol 2 mg PO DAILY #100 tab 12/28/20 [Rx Last Taken Unknown] eletriptan 20 mg PO Q2H PRN 09/20/21 [History Last Taken Unknown] fluoxetine [Prozac] 20 mg PO QHS 09/20/21 [History Last Taken Unknown] fremanezumab-vfrm [Ajovy Autoinjector] 225 mg SUBCUT QMONTH 09/20/21 [History Last Taken Unknown] hydrocortisone [Cortef] 15 mg PO DAILY 09/20/21 [History Last Taken 09/21/21] ondansetron 4 mg PO Q8H PRN #10 tab 09/29/21 [Rx Last Taken Unknown] potassium chloride 20 meq PO DAILY #7 tab 09/29/21 [Rx Last Taken Unknown] sucralfate [Carafate] 10 ml PO TID 11/05/21 [History Last Taken Unknown] pantoprazole 40 mg tablet,delayed release 40 mg PO BID #60 tab 11/12/21 [Rx Last Taken Unknown] amitriptyline 25 mg tablet 25 mg PO QHS #30 tab 11/19/21 [Rx Last Taken Unknown] lorazepam [Ativan] 1 mg PO TID PRN #12 tab 12/02/21 [Rx Last Taken Unknown] alprazolam 0.5 mg tablet 0.5 mg PO TID PRN #30 tab 12/16/21 [Rx Last Taken Unknown] esomeprazole magnesium [Nexium] 40 mg PO DAILY 12/19/21 [History Last Taken Unknown] hydrocodone-acetaminophen 1 tab PO Q4H PRN PRN 2 Days #5 tablet 12/19/21 [Rx Last Taken Unknown] hyoscyamine sulfate [Levsin] 0.125 mg PO Q4H PRN PRN 12/19/21 [History Last Taken Unknown] promethazine 25 mg NC Q6H PRN #12 ea 12/21/21 [Rx Last Taken Unknown] Allergy/AdvReac Type Severity Reaction Status Date / Time azithromycin Allergy Anaphylaxis Verified 12/02/21 15:56 [From Zithromax Z-Ruiz] bacitracin Allergy Swelling Verified 12/02/21 15:56 [From Neosporin ([id number])] bacitracin zinc Allergy Swelling Verified 12/02/21 15:56 [From Neosporin ([id number])] latex Allergy Rash Verified 12/02/21 15:56 neomycin sulfate Allergy Swelling Verified 12/02/21 15:56 [From Neosporin ([id number])] polymyxin B Allergy Swelling Verified 12/02/21 15:56 [From Neosporin ([id number])] EXCEDRIN Allergy Anaphylaxis Uncoded 12/02/21 15:56 Family History Uncle Diabetes Cancer lung Father Diabetes Grandfather CVA (cerebral vascular accident) Cancer lung, unsure additional type Uncle Cancer brain Grandmother Cancer lung and unsure additional type Surgical History History of appendectomy History of section History of laparoscopic-assisted vaginal hysterectomy History of laparoscopy History of left salpingo-oophorectomy History of thyroidectomy History of tubal ligation History of wisdom tooth extraction Hx laparoscopic cholecystectomy Social History Smoking Status: Former smoker ROS ROS ED Constitutional Constitutional ED: Denies chills or fever(s) Eyes Eyes: Denies change in vision ENT ENT ED: Reports sore throat Cardiovascular Cardiovascular: Reports chest pain Respiratory/Chest Respiratory/Chest: Denies cough or dyspnea Gastrointestinal Gastrointestinal: Reports abdominal pain, nausea and vomiting; Denies diarrhea Genitourinary Genitourinary ED: Denies dysuria Musculoskeletal Musculoskeletal: Denies back pain Integumentary Denies rash Neurologic Neurologic: Denies headache(s) or weakness Allergic/Immunologic Allergic/Immunologic ED: Denies urticaria EXAM Physical Exam Const Vital Signs: 12/21/21 14:21 12/21/21 14:44 12/21/21 15:40 Temperature 97.6 F L 97.6 F L 97.6 F L Temperature Source Temporal Temporal Temporal Pulse Rate 69 69 69 Respiratory Rate 15 15 15 Blood Pressure 125/84 H 125/84 H 125/84 H Blood Pressure Mean 97 97 97 Pulse Ox 99 99 99 Oxygen Delivery Method Room Air Room Air Room Air 12/21/21 16:38 Temperature Temperature Source Pulse Rate Respiratory Rate 16 Blood Pressure Blood Pressure Mean Pulse Ox Oxygen Delivery Method Positive well nourished and well developed General Appearance ED: well developed HEENT Reports moist mucous membranes Eyes PERRL and EOMs intact bilaterally Neck supple Chest Wall inspection of chest normal and palpation of chest normal Resp normal respiratory effort and clear to auscultation bilaterally Cardio regular rate and regular rhythm GI Palpation: soft and tender epigastric Extremity normal to inspection Neuro oriented x3 Sensorium / Orientation: alert Psych mental status grossly normal Skin no rashes or lesions noted MDM MDM MDM Narrative Medical decision making narrative: Patient was given a small dose of Dilaudid and Zofran along with IV fluids. Lab work obtained and chest x-ray ordered because of the recent EGD. Lab Data Attestation: I reviewed the patient's lab results. Labs: Laboratory Results - last 24 hr 12/21/21 12/21/21 15:00 15:00 WBC 8.4 RBC 4.10 L Hgb 11.2 L Hct 34.9 L MCV 85.1 MCH 27.3 MCHC 32.1 RDW Std Deviation 44.6 H RDW Coeff of Renetta 14.4 Plt Count 345 MPV 9.5 Immature Gran % (Auto) 0.400 Neut % (Auto) 63.7 Lymph % (Auto) 26.8 Hubbard % (Auto) 8.0 Eos % (Auto) 0.7 Baso % (Auto) 0.4 Absolute Neuts (auto) 5.3 Absolute Lymphs (auto) 2.25 Nucleated RBC % 0 Sodium 139 Potassium 3.9 Chloride 105 Carbon Dioxide 28.0 Anion Gap 6 BUN 10 Creatinine 0.86 Estim Creat Clear Calc 87.64 Est GFR (MDRD) Af Amer 101 Est GFR (MDRD) Non-Af 83 BUN/Creatinine Ratio 11.7 Glucose 137 H Calcium 8.8 Total Bilirubin 0.30 Direct Bilirubin 0.06 AST 23 ALT 89 H Alkaline Phosphatase 69 Total Protein 7.1 Albumin 3.0 L Globulin 4.1 Lipase 99 Radiography Chest X-Ray - ED: 1 View, Read by ED Physician, Normal, Heart, Lungs and Mediastinum Diagnostic Testing: Clinical Impression(s) from Imaging Studies Chest X-Ray 12/21/21 15:05 IMPRESSION: Normal x-ray examination of the chest. Electronically Signed: Lonnie Kim MD at 15:19 EST , Treatment and Re-Evaluation Comments:: Chest x-ray is unremarkable. Lab work normal. When I went back to reevaluate the patient she had vomited again. She was given IM Phenergan. At this time on repeat evaluation she does report that her nausea is improved. She told the nurse that if you are not going to give anything further for pain she would just leave. I advised her I am trying to control her nausea so she can keep her medicines down at home. I will give her 1 more small dose of IV Dilaudid here and write her prescriptions for Phenergan suppositories. She already has Zofran ODT at home. She is to call her doctor tomorrow for follow-up and further analgesics as needed. Discharge Plan Triage Chief Complaint: Nausea/Vomiting ED Provider: Charleen Guaman Dx/Rx/DC Orders Clinical Impression: Epigastric pain, Vomiting Instructions: ED Vomiting (Adult), ED Epigastric Pain Uncertain Cause Prescriptions: New promethazine 25 mg suppository 25 mg NC Q6H PRN (Reason: nausea and vomiting) Qty: 12 RF: 0 No Action divalproex 500 mg tablet,delayed release (DR/EC) 750 mg PO QHS RF: 0 nitroglycerin 0.3 mg tablet, sublingual 0.3 mg sublingual Q5M PRN (Reason: cp) RF: 0 pantoprazole 40 mg tablet,delayed release (DR/EC) 40 mg PO BID Qty: 60 RF: 1 hydroxyzine HCl 25 MG tablet 25 mg PO PRN PRN (Reason: Anxiety) RF: 0 levothyroxine 88 MCG tablet 112 mcg PO DAILY@0600 RF: 0 albuterol sulfate 1 INHALER inhaler 1 - 2 puff INHALATION Q4H PRN PRN (Reason: Sob &/Or Wheezing) RF: 0 estradiol 2 MG tablet 2 mg PO DAILY Qty: 100 RF: 4 hydrocortisone [Cortef] 20 mg Tablet 15 mg PO DAILY RF: 0 fluoxetine [Prozac] 20 mg Capsule 20 mg PO QHS RF: 0 eletriptan 20 mg Tablet 20 mg PO Q2H PRN (Reason: MIGRAINES) RF: 0 Ajovy Autoinjector 225 mg/1.5 mL Auto-Injector 225 mg SUBCUT QMONTH RF: 0 potassium chloride 20 mEq tablet extended release 20 meq PO DAILY Qty: 7 RF: 0 ondansetron 4 mg tablet,disintegrating 4 mg PO Q8H PRN (Reason: nausea and vomiting) Qty: 10 RF: 0 sucralfate [Carafate] 100 mg/mL suspension 10 ml PO TID RF: 0 lorazepam [Ativan] 1 mg tablet 1 mg PO TID PRN (Reason: anxiety) Qty: 12 RF: 0 hyoscyamine sulfate [Levsin] 0.125 mg Tablet 0.125 mg PO Q4H PRN PRN (Reason: swallowing) RF: 0 esomeprazole magnesium [Nexium] 40 mg Capsule,Delayed Release(Dr/Ec) 40 mg PO DAILY RF: 0 hydrocodone-acetaminophen [hydrocodone-acetaminophen] 1 TABLET tablet 1 tab PO Q4H PRN PRN (Reason: Pain) 2 Days Qty: 5 RF: 0 amitriptyline 25 mg tablet 25 mg PO QHS Qty: 30 RF: 2 alprazolam [Xanax] 0.5 mg tablet 0.5 mg PO TID PRN (Reason: anxiety) Qty: 30 RF: 0 Primary Care Provider: Kevin Stauffer Referrals: Kevin Stauffer MD [Primary Care Provider] - As soon as possible Disposition Disposition: Home, Self Care
[2021-12-21] MEDS: HYDROmorphone 1 MG/ML Syringe 0.5 MG IV (15:01)
[2021-12-21] MEDS: 0.9% Normal Saline 1,000 ML 1000 ML IV (15:01)
[2021-12-21] MEDS: Ondansetron 4 MG/2 ML Vial IV (15:01)
--- NOTE | 2021-12-21 15:05 | RAD_ITS ---
STUDY: X-RAY CHEST REASON FOR EXAM: Female, 26 years old. Pain -- EGD 12/20 TECHNIQUE: Single AP portable view of the chest. COMPARISON: Comparison is made with prior study dated 12/19/2021. FINDINGS: The lungs are clear and expanded. There is no demonstrated pleural abnormality. Normal size heart. Normal mediastinum and phillip. Normal visualized pulmonary arteries. Normal visualized aortic arch and descending thoracic aorta. Normal visualized thoracic spine. Normal visualized ribs, clavicles, and shoulders. There is no demonstrated abnormality of the visualized soft tissue structures of the upper abdomen. RAD/Chest 1 View (Portable) IMPRESSION: Normal x-ray examination of the chest. Electronically Signed: Lonnie Kim MD at 15:19 EST ,
[2021-12-21 15:11] LABS: Absolute Lymphocyte Count 2.25 X10^3/uL (0.83-4.51); Absolute Neutrophil Count 5.3 X10^3/uL (2.0-7.7); Basophil# 0.03 X10^3/uL; Basophil% 0.4 % (0-1); Eosinophil# 0.06 X10^3/uL; Eosinophils% 0.7 % (0-5); Hematocrit 34.9 % (37-47); Hemoglobin 11.2 g/dL (12.0-15.0); Lymphocyte # 2.25 X10^3/ul (0.83-4.51); Lymphocyte % 26.8 % (19-41); Mean Corp Hgb Conc 32.1 g/dL (32-36); Mean Corpuscular Hgb 27.3 pg (27.0-32.0); Mean Corpuscular Volume 85.1 fL (81-99); Mean Platelet Vol. 9.5 fl (6.2-12.0); Monocyte# 0.67 X10^3/uL; NRBC Flagged by Analyzer 0 % (0-5); Neutrophil # 5.34 X10^3/uL (2.7-7.7); Neutrophil % 63.7 % (47-70); Platelet Count 345 K/mm3 (150-450); RBC Distribution Width CV 14.4 % (11.6-14.6); RBC Distribution Width SD 44.6 fl (35.1-43.9); White Blood Count 8.4 K/mm3 (4.4-11.0)
[2021-12-21 15:26] LABS: AST(SGOT) 23 U/L (15-37); Alanine Aminotransfer ALT/SGPT 89 U/L (13-56); Alkaline Phosphatase 69 U/L (45-117); Anion Gap 6 (5-15); BUN 10 mg/dL (7-18); BUN/Creat Ratio 11.7 RATIO (10-20); Bilirubin, Direct 0.06 mg/dL (0.00-0.30); Calcium,Total 8.8 mg/dL (8.5-10.1); Chloride 105 mmol/L (98-107); Creatinine, Serum 0.86 mg/dL (0.55-1.02); EST Glomerular Filtration Rate 83 mL/min (>60); Est Glom Filt Rate - Afr Amer 101 mL/min (>60); Estimated Creatinine Clearance 87.64 ml/min; Globulin 4.1 g/dL (2.2-4.2); Glucose 137 mg/dL (74-106); Lipase 99 U/L (73-393); Potassium 3.9 mmol/L (3.5-5.1); Protein, Total 7.1 g/dL (6.4-8.2); Sodium Level 139 mmol/L (136-145)
[2021-12-21 15:40] VITALS: BP 125/84; PULSE 69; RESP 15; TEMP 36.4; O2SAT 99
[2021-12-21] MEDS: proMETHazine 25 MG/ML Syringe IM (16:21)
[2021-12-21 16:38] VITALS: RESP 16
--- NOTE | 2021-12-21 17:30 | ED.RN ---
PER MARION, RN, PT CALLED OUT WANTING MORE PAIN MEDS. PT STATED THAT IF SHE ISNT GOING TO GET MORE PAIN MEDS, THEN SHE IS JUST GOING TO LEAVE. MARION MADE AWARE TO DR HERNANDEZ. 0.5 MG DILAUDID ORDERED BEFORE DISCHARGE.
[2021-12-21] MEDS: HYDROmorphone 0.5 MG/0.5 ML SYRINGE IV (17:37)
[2021-12-21 18:03] VITALS: PULSE 71; RESP 18; O2SAT 98
== END 2021-12-21 18:03 | disposition home or self-care (01) ==
PROVIDERS: Emergency Provider Emergency Medicine; PCP Family Medicine; Visit Provider Emergency Medicine
DX: R10.13 Epigastric pain (principal); R11.2 Nausea with vomiting, unspecified; Z87.891 Personal history of nicotine dependence
CPT/HCPCS: 71045; 80048; 80076; 83690; 85025; 96361; 96372; 96374; 96375; 96376; 99282; J7030; A4216; J2405

== ENCOUNTER 2022-01-13 09:45 | Emergency (ER) | payer MEDICAID, SELFPAY ==
[2022-01-13 09:45] VITALS: BP 153/96; PULSE 65; RESP 16; TEMP 36.2; O2SAT 100; BMI 25.0
[2022-01-13 10:06] LABS: Bedside Glucose 67 mg/dL (74-106)
--- NOTE | 2022-01-13 10:36 | CT_ITS ---
STUDY: CT BRAIN WITHOUT CONTRAST REASON FOR EXAM: Female, 26 years old. headache RADIATION DOSAGE (If Supplied By Facility): CTDIvol = ( 44.99 ) mGy, DLP = ( 745.49 ) mGycm TECHNIQUE: Transaxial CT imaging of the brain was performed without administration of intravenous contrast material. Individualized dose optimization techniques were used for this CT. COMPARISON: 11/11/2020 FINDINGS: Normal soft tissue structures. Normal calvarium. Normal size ventricles and extra-axial spaces for the patient''s age. Normal white matter tracts of the cerebral hemispheres. Normal basal ganglia and thalami. Normal brainstem. Normal cerebellum. There is no intracranial hemorrhage. There are no findings of an acute ischemic infarction. Normal visualized paranasal sinuses. CT/Brain/Head without Contrast IMPRESSION: Normal unenhanced CT scan of the brain. Electronically Signed: Kevin Cabrales MD ([place]) at 11:21 EDT ,
--- NOTE | 2022-01-13 10:40 | EDS_ITS ---
HPI <CATE Ramos - Last Filed: 01/13/22 13:14> History of Present Illness Chief Complaint: General Illness Narrative Narrative: 26 female with a long medical history, Mineral's, hypothyroidism, chronic migraines, diabetes, Graves' disease presents to the emergency department with 3 days of headache, having difficulty keeping her blood sugar up, as well as feeling generally unwell. Patient did speak with her specialist, they did advise her to come the office however the patient was feeling so unwell, the patient decided come to the emergency department. Patient denies any chest pain, denies any nausea or vomiting. Patient states that her blood s ugar was low, patient states that she fell in the emergency department striking her right eye. Patient states that the headache is unlike her other migraines. Patient denies any fevers or chills PFSH <CATE Ramos - Last Filed: 01/13/22 13:14> PFSH Medical History Abnormal uterine bleeding (AUB) Addisons disease Adenomyosis Anxiety and depression Asthma Cardiology follow-up encounter Chest pain Chronic female pelvic pain Diabetes Difficulty swallowing Dysphagia Easy bruising Endometriosis determined by laparoscopy Former smoker Gastric reflux Gastroparesis Graves disease History of diverticulitis History of echocardiogram History of IBS History of left heart catheterization History of steroid therapy History of stress test History of ulceration Low iron Migraine Mild intermittent asthma Restless legs Seizures Shortness of breath on exertion Wears glasses Home Medications hydroxyzine HCl 25 mg PO PRN PRN 10/06/19 [History Last Taken Unknown] levothyroxine 112 mcg PO DAILY@0600 03/02/20 [History Last Taken 09/21/21] albuterol sulfate 1 - 2 puff INHALATION Q4H PRN PRN 08/04/20 [History Last Taken Unknown] divalproex 500 mg tablet,delayed release 750 mg PO QHS tab 12/11/20 [History Last Taken Unknown] nitroglycerin 0.3 mg sublingual tablet 0.3 mg SUBLINGUAL Q5M PRN 12/11/20 [History Last Taken Unknown] estradiol 2 mg PO DAILY #100 tab 12/28/20 [Rx Last Taken Unknown] eletriptan 20 mg PO Q2H PRN 09/20/21 [History Last Taken Unknown] fluoxetine [Prozac] 20 mg PO QHS 09/20/21 [History Last Taken Unknown] fremanezumab-vfrm [Ajovy Autoinjector] 225 mg SUBCUT QMONTH 09/20/21 [History Last Taken Unknown] hydrocortisone [Cortef] 15 mg PO DAILY 09/20/21 [History Last Taken 09/21/21] ondansetron 4 mg PO Q8H PRN #10 tab 09/29/21 [Rx Last Taken Unknown] potassium chloride 20 meq PO DAILY #7 tab 09/29/21 [Rx Last Taken Unknown] sucralfate [Carafate] 10 ml PO TID 11/05/21 [History Last Taken Unknown] pantoprazole 40 mg tablet,delayed release 40 mg PO BID #60 tab 11/12/21 [Rx Last Taken Unknown] amitriptyline 25 mg tablet 25 mg PO QHS #30 tab 11/19/21 [Rx Last Taken Unknown] lorazepam [Ativan] 1 mg PO TID PRN #12 tab 12/02/21 [Rx Last Taken Unknown] alprazolam 0.5 mg tablet 0.5 mg PO TID PRN #30 tab 12/16/21 [Rx Last Taken Unknown] esomeprazole magnesium [Nexium] 40 mg PO DAILY 12/19/21 [History Last Taken Unknown] hydrocodone-acetaminophen 1 tab PO Q4H PRN PRN 2 Days #5 tablet 12/19/21 [Rx Last Taken Unknown] hyoscyamine sulfate [Levsin] 0.125 mg PO Q4H PRN PRN 12/19/21 [History Last Taken Unknown] promethazine 25 mg NH Q6H PRN #12 ea 12/21/21 [Rx Last Taken Unknown] Allergy/AdvReac Type Severity Reaction Status Date / Time azithromycin Allergy Anaphylaxis Verified 01/13/22 09:48 [From Zithromax Z-Ruiz] bacitracin Allergy Swelling Verified 01/13/22 09:48 [From Neosporin ([id number])] bacitracin zinc Allergy Swelling Verified 01/13/22 09:48 [From Neosporin ([id number])] latex Allergy Rash Verified 01/13/22 09:48 neomycin sulfate Allergy Swelling Verified 01/13/22 09:48 [From Neosporin ([id number])] polymyxin B Allergy Swelling Verified 01/13/22 09:48 [From Neosporin ([id number])] EXCEDRIN Allergy Anaphylaxis Uncoded 01/13/22 09:48 Family History Uncle Diabetes Cancer lung Father Diabetes Grandfather CVA (cerebral vascular accident) Cancer lung, unsure additional type Uncle Cancer brain Grandmother Cancer lung and unsure additional type Surgical History History of appendectomy History of section History of laparoscopic-assisted vaginal hysterectomy History of laparoscopy History of left salpingo-oophorectomy History of thyroidectomy History of tubal ligation History of wisdom tooth extraction Hx laparoscopic cholecystectomy Social History Smoking Status: Former smoker ROS <Migel Luis NP-C - Last Filed: 01/13/22 13:14> ROS ED ROS Narrative Constitutional: Negative for fever, chills, weight loss or gain. Positive for feeling weakness Eyes: Negative for vision loss, vision change, double vision ENT: Negative for any hearing changes, ringing in the ears, dizziness, discharge, pain Nose: Negative for any congestion, runny nose, sinus pain, allergies Throat: Negative for any sore throat hoarseness, voice changes, Cardiovascular: Negative for any chest pain, tightness, palpitations, racing heartbeat Respiratory: Negative for any coughs, sputum production, coughing, hemoptysis, shortness of breath, shortness of breath on exertion, Gastrointestinal: Negative for any abdominal pain, nausea, vomiting, diarrhea, constipation, blood in stool, blood in vomit : Negative for any urinary frequency, incontinence, dysuria, retention, blood in urine Muscle skeletal: Negative for any muscle joint pain, stiffness, myalgias, a rthralgias, neck pain, back pain Neurological: Negative for any headache, head injury, dizziness, syncope, numbness or tingling Skin: Negative for any rashes, lumps, itching, abrasions, lacerations Psychiatric: Negative for any depression, anxiety, stress, suicidal ideation, homicidal ideation Hematologic: Negative for any easy bruising, excessive bruising, easy bleeding Allergies: Negative for any eczema, hives, rash EXAM <CATE Ramos - Last Filed: 01/13/22 13:14> Physical Exam Const Vital Signs: 01/13/22 09:45 01/13/22 11:10 Temperature 97.1 F L Temperature Source Temporal Pulse Rate 65 Respiratory Rate 16 Respiratory Effort Normal Non-Labored Respiratory Pattern Normal Blood Pressure 153/96 H Blood Pressure Mean 115 Pulse Ox 100 Oxygen Delivery Method Room Air HEENT HEENT Narrative: Patient did have slight edema to the right eyebrow secondary to the fall, pupils equal round reactive light negative for any hematoma, septal hematoma tenderness Eyes PERRL and EOMs intact bilaterally Neck no lymphadenopathy and supple Neck Narrative: Negative for any tenderness Chest Wall inspection of chest normal and palpation of chest normal Resp normal respiratory effort and clear to auscultation bilaterally Cardio regular rate, regular rhythm and no murmurs GI normal to inspection, nondistended, normoactive bowel sounds, non-tender and non-distended Palpation: soft Back/Spine no CVA tenderness Extremity normal to inspection Neuro oriented x3 and CN's II-XII intact bilaterally Sensorium / Orientation: alert Motor Exam: strength 5/5 throughout Psych mental status grossly normal Skin no rashes or lesions noted <Dr. Ryan Lopez MD - Last Filed: 01/13/22 11:12> Physical Exam Const Vital Signs: 01/13/22 09:45 01/13/22 11:10 Temperature 97.1 F L Temperature Source Temporal Pulse Rate 65 Respiratory Rate 16 Respiratory Effort Normal Non-Labored Respiratory Pattern Normal Blood Pressure 153/96 H Blood Pressure Mean 115 Pulse Ox 100 Oxygen Delivery Method Room Air MDM <CATE Ramos - Last Filed: 01/13/22 13:14> [facility] Lab Data Labs: Laboratory Results - last 24 hr 01/13/22 01/13/22 01/13/22 09:58 10:59 10:59 WBC 10.3 RBC 4.16 L Hgb 11.4 L Hct 35.5 L MCV 85.3 MCH 27.4 MCHC 32.1 RDW Std Deviation 43.8 RDW Coeff of Renetta 14.1 Plt Count 316 MPV 9.7 Immature Gran % (Auto) 0.600 Neut % (Auto) 55.5 Lymph % (Auto) 34.8 [place] % (Auto) 8.3 Eos % (Auto) 0.5 Baso % (Auto) 0.3 Absolute Neuts (auto) 5.7 Absolute Lymphs (auto) 3.57 Nucleated RBC % 0 Sodium 139 Potassium 3.4 L Chloride 102 Carbon Dioxide 30.0 Anion Gap 7 BUN 9 Creatinine 0.82 Estim Creat Clear Calc 91.91 Est GFR (MDRD) Af Amer 107 Est GFR (MDRD) Non-Af 88 BUN/Creatinine Ratio 11.0 Glucose 83 Calcium 8.4 L POC Glucose 67 L Radiography Diagnostic Testing: Clinical Impression(s) from Imaging Studies Brain CT 01/13/22 10:36 IMPRESSION: Normal unenhanced CT scan of the brain. Electronically Signed: Kevin Cabrales MD (Brooks) at 11:21 EDT Reading Location ID and State: [facility] / [place] , Service support , Patient appears well, patient appears nontoxic, vital signs are stable. Patient presents the emergency department because she has feels ill, weak over the last several weeks. Patient did have multiple complaints. Patient biggest complaint was a headache, patient did receive a CT scan of brain which was unremarkable. Patient's laboratory studies show slight anemia however this is chronic, patient is blood sugar was 67, she did receive crackers, peanut butter, this raised her blood sugar up to 87. Patient states to have been having low blood sugars for multiple months. Patient did receive medications such as IM Toradol, Compazine, by mouth Benadryl for her headache this helped slightly however she still complains of a chronic migraine. On reassessment, the patient states that she was hungry and would like to be discharged. At this time, there is no indication of a deep tissue infection, infection, intracranial process. Patient will be discharged and follow-up outpatient with her specialties. Instructed return for any worsening symptoms. <Dr. Ryan Lopez MD - Last Filed: 01/13/22 11:12> [facility] Narrative Medical decision making narrative: 1*-year-old female evaluated with her physician pastrycook's assistant. She has had a headache for the last 2 to 3 days. She has a history of chronic migraines but states this feels different. When she was placed in the room today she had an episode where she passed out fell and hit her head. She has a mild contusion on her head. Otherwise exam is unremarkable. She is neurologically intact. She is awake and alert. She has no focal motor deficits. Lungs are clear. Heart regular rhythm. CAT scan labs are being obtained. For headache she will be treated with Toradol, Compazine and Benadryl. She had initial IV which blew she did not want a second 1 started so she will get IM injections and p.o. medications. She did take Tylenol at home already today. Lab Data Lab results narrative: CBC shows a white count of 10. H&H 11 and 35. Labs: Laboratory Results - last 24 hr 01/13/22 01/13/22 01/13/22 09:58 10:59 10:59 WBC 10.3 RBC 4.16 L Hgb 11.4 L Hct 35.5 L MCV 85.3 MCH 27.4 MCHC 32.1 RDW Std Deviation 43.8 RDW Coeff of Renetta 14.1 Plt Count 316 MPV 9.7 Immature Gran % (Auto) 0.600 Neut % (Auto) 55.5 Lymph % (Auto) 34.8 [place] % (Auto) 8.3 Eos % (Auto) 0.5 Baso % (Auto) 0.3 Absolute Neuts (auto) 5.7 Absolute Lymphs (auto) 3.57 Nucleated RBC % 0 Sodium 139 Potassium 3.4 L Chloride 102 Carbon Dioxide 30.0 Anion Gap 7 BUN 9 Creatinine 0.82 Estim Creat Clear Calc 91.91 Est GFR (MDRD) Af Amer 107 Est GFR (MDRD) Non-Af 88 BUN/Creatinine Ratio 11.0 Glucose 83 Calcium 8.4 L POC Glucose 67 L Radiography Diagnostic Testing: Clinical Impression(s) from Imaging Studies Brain CT 01/13/22 10:36 IMPRESSION: Normal unenhanced CT scan of the brain. Electronically Signed: Kevin Cabrales MD (Brooks) at 11:21 EDT , Discharge Plan Triage Chief Complaint: General Illness ED Midlevel Provider: Migel Luis ED Provider: Ryan Lopez Dx/Rx/DC Orders Clinical Impression: Headache, Hypoglycemia Instructions: Understanding Headache Pain, ED Hypoglycemia Oral Diabetic ... Prescriptions: No Action divalproex 500 mg tablet,delayed release (DR/EC) 750 mg PO QHS RF: 0 nitroglycerin 0.3 mg tablet, sublingual 0.3 mg sublingual Q5M PRN (Reason: cp) RF: 0 pantoprazole 40 mg tablet,delayed release (DR/EC) 40 mg PO BID Qty: 60 RF: 1 hydroxyzine HCl 25 MG tablet 25 mg PO PRN PRN (Reason: Anxiety) RF: 0 levothyroxine 88 MCG tablet 112 mcg PO DAILY@0600 RF: 0 albuterol sulfate 1 INHALER inhaler 1 - 2 puff INHALATION Q4H PRN PRN (Reason: Sob &/Or Wheezing) RF: 0 estradiol 2 MG tablet 2 mg PO DAILY Qty: 100 RF: 4 hydrocortisone [Cortef] 20 mg Tablet 15 mg PO DAILY RF: 0 fluoxetine [Prozac] 20 mg Capsule 20 mg PO QHS RF: 0 eletriptan 20 mg Tablet 20 mg PO Q2H PRN (Reason: MIGRAINES) RF: 0 Ajovy Autoinjector 225 mg/1.5 mL Auto-Injector 225 mg SUBCUT QMONTH RF: 0 potassium chloride 20 mEq tablet extended release 20 meq PO DAILY Qty: 7 RF: 0 ondansetron 4 mg tablet,disintegrating 4 mg PO Q8H PRN (Reason: nausea and vomiting) Qty: 10 RF: 0 sucralfate [Carafate] 100 mg/mL suspension 10 ml PO TID RF: 0 lorazepam [Ativan] 1 mg tablet 1 mg PO TID PRN (Reason: anxiety) Qty: 12 RF: 0 hyoscyamine sulfate [Levsin] 0.125 mg Tablet 0.125 mg PO Q4H PRN PRN (Reason: swallowing) RF: 0 esomeprazole magnesium [Nexium] 40 mg Capsule,Delayed Release(Dr/Ec) 40 mg PO DAILY RF: 0 hydrocodone-acetaminophen [hydrocodone-acetaminophen] 1 TABLET tablet 1 tab PO Q4H PRN PRN (Reason: Pain) 2 Days Qty: 5 RF: 0 promethazine 25 mg suppository 25 mg NH Q6H PRN (Reason: nausea and vomiting) Qty: 12 RF: 0 amitriptyline 25 mg tablet 25 mg PO QHS Qty: 30 RF: 2 alprazolam [Xanax] 0.5 mg tablet 0.5 mg PO TID PRN (Reason: anxiety) Qty: 30 RF: 0 Primary Care Provider: Kevin Stauffer Referrals: Kevin tSauffer MD [Primary Care Provider] - Print Language: Japanese Disposition Disposition: Home, Self Care
[2022-01-13 11:02] LABS: Absolute Lymphocyte Count 3.57 X10^3/uL (0.83-4.51); Absolute Neutrophil Count 5.7 X10^3/uL (2.0-7.7); Basophil# 0.03 X10^3/uL; Basophil% 0.3 % (0-1); Eosinophil# 0.05 X10^3/uL; Eosinophils% 0.5 % (0-5); Hematocrit 35.5 % (37-47); Hemoglobin 11.4 g/dL (12.0-15.0); Lymphocyte # 3.57 X10^3/ul (0.83-4.51); Lymphocyte % 34.8 % (19-41); Mean Corp Hgb Conc 32.1 g/dL (32-36); Mean Corpuscular Hgb 27.4 pg (27.0-32.0); Mean Corpuscular Volume 85.3 fL (81-99); Mean Platelet Vol. 9.7 fl (6.2-12.0); Monocyte# 0.85 X10^3/uL; Monocyte% 8.3 % (0-10); NRBC Flagged by Analyzer 0 % (0-5); Neutrophil # 5.69 X10^3/uL (2.7-7.7); Neutrophil % 55.5 % (47-70); Platelet Count 316 K/mm3 (150-450); RBC Distribution Width CV 14.1 % (11.6-14.6); RBC Distribution Width SD 43.8 fl (35.1-43.9); Red Blood Count 4.16 M/mm3 (4.2-5.4); White Blood Count 10.3 K/mm3 (4.4-11.0)
[2022-01-13 11:16] LABS: Anion Gap 7 (5-15); BUN 9 mg/dL (7-18); Calcium,Total 8.4 mg/dL (8.5-10.1); Chloride 102 mmol/L (98-107); Creatinine, Serum 0.82 mg/dL (0.55-1.02); EST Glomerular Filtration Rate 88 mL/min (>60); Est Glom Filt Rate - Afr Amer 107 mL/min (>60); Estimated Creatinine Clearance 91.91 ml/min; Glucose 83 mg/dL (74-106); Potassium 3.4 mmol/L (3.5-5.1); Sodium Level 139 mmol/L (136-145)
[2022-01-13] MEDS: proCHLORPERazine 10 MG/2 ML Vial IM (11:21)
[2022-01-13] MEDS: DiphenhydrAMINE 25 MG Capsule 50 MG PO (11:21)
[2022-01-13] MEDS: Ketorolac 60 MG/2 ML Vial IM (11:21)
[2022-01-13 13:13] VITALS: BP 128/86; PULSE 53; RESP 18; O2SAT 96
== END 2022-01-13 13:17 | disposition home or self-care (01) ==
PROVIDERS: Nurse Practitioner; Emergency Provider Emergency Medicine; PCP Family Medicine; Visit Provider Emergency Medicine
DX: R51.9 Headache, unspecified (principal); E16.2 Hypoglycemia, unspecified; Z87.891 Personal history of nicotine dependence
CPT/HCPCS: 70450; 80048; 82962; 85025; 96372; 99281

== ENCOUNTER 2022-07-11 11:27 | Emergency (ER) | payer MEDICAID, SELFPAY ==
[2022-07-11 11:28] VITALS: BP 112/70; PULSE 95; RESP 16; TEMP 36.8; O2SAT 100; BMI 26.9
[2022-07-11 11:31] VITALS: BP 112/70; PULSE 95; RESP 16; TEMP 36.8; O2SAT 100
--- NOTE | 2022-07-11 12:29 | CT_ITS ---
STUDY: CT ABDOMEN AND PELVIS WITH CONTRAST REASON FOR EXAM: Female, 27 years old. ruq pain RADIATION DOSAGE (If Supplied By Facility): CTDIvol = ( 10.20 ) mGy, DLP = ( 531.08 ) mGycm TECHNIQUE: Transaxial images were obtained from the dome of the diaphragm to the symphysis pubis without oral contrast. IV 100mL Isovue-300 was administered. Sagittal and coronal images were reconstructed. Individualized dose optimization techniques were used for this CT. COMPARISON: 09/29/2021 FINDINGS: The visualized lung bases are unremarkable. The visualized portions of the heart are within normal limits. Normal liver. There is non-visualization of the gallbladder, which may be secondary to either contraction or a prior cholecystectomy. Normal spleen. Normal pancreas. Normal bilateral adrenal glands. Normal right kidney. Normal left kidney. Normal visualized stomach. Normal small intestine. Normal colon. There are surgical clips in the region of the appendix consistent with a prior appendectomy. Normal abdominal aorta. Normal inferior vena cava. Normal retroperitoneum. Normal urinary bladder. Normal abdominal wall. Normal osseous structures. CT/Abdomen/Pelvis W IV Cont ONLY IMPRESSION: Normal enhanced CT of the abdomen and pelvis. Electronically Signed: Chivo Yee MD at 13:35 EDT ,
[2022-07-11 12:30] VITALS: BP 112/70; PULSE 95; RESP 16; TEMP 36.8; O2SAT 100
--- NOTE | 2022-07-11 12:30 | ED.VIS.GI ---
HPI HPI - GI History of Present Illness Chief Complaint: Abd Pain Narrative Narrative: 27-year-old female presenting with right upper quadrant abdominal pain. She states he has had this for a couple of weeks. She initially presented via squad to [facility] in [place] and it was determined she was in an addisonian crisis. Patient was ultimately transferred over to [facility] where she has spent the last 2 weeks. Apparently she had to have a feeding tube placed. She reportedly had intractable nausea and vomiting and was unable to eat and drink. She had an upper endoscopy performed which showed normal esophagus and stomach. The patient reports that her LFTs were initially elevated, but [facility] could not determine why. She states she had a normal right upper quadrant ultrasound. When these normalized she was discharged home. She had use a walker at home. She had a follow-up televisit on the and the patient reports she is having continuing ongoing right upper quadrant pain. She was initially given oxycodone for this but she states it did not make the pain go away. She states has been trying to stick to a bland diet but last night ate chicken nuggets which made her pain worse. She did not eat today. She is not had a fever. She is making bowel movements. She has not been vomiting. [facility] Medical History Abnormal uterine bleeding (AUB) Addisons disease Adenomyosis Anxiety and depression Asthma Cardiology follow-up encounter Chest pain Chronic female pelvic pain Diabetes Difficulty swallowing Dysphagia Easy bruising Endometriosis determined by laparoscopy Former smoker Gastric reflux Gastroparesis Graves disease History of diverticulitis History of echocardiogram History of IBS History of left heart catheterization History of steroid therapy History of stress test History of ulceration Low iron Migraine Mild intermittent asthma Restless legs Seizures Shortness of breath on exertion Wears glasses Home Medications hydroxyzine HCl 25 mg tablet 25 mg PO PRN PRN Anxiety 10/06/19 [History Last Taken Unknown] levothyroxine 88 mcg tablet 112 mcg PO DAILY@0600 03/02/20 [History Last Taken 09/21/21] albuterol sulfate 90 mcg/actuation aerosol inhaler 1 - 2 puff inhalation Q4H PRN PRN Sob &/Or Wheezing 08/04/20 [History Last Taken Unknown] divalproex 500 mg tablet,delayed release 750 mg PO QHS 12/11/20 [History Last Taken Unknown] nitroglycerin 0.3 mg sublingual tablet 0.3 mg sublingual Q5M PRN cp 12/11/20 [History Last Taken Unknown] estradiol 2 mg tablet 2 mg PO DAILY #100 tabs 12/28/20 [Rx Last Taken Unknown] eletriptan 20 mg tablet 20 mg PO Q2H PRN MIGRAINES 09/20/21 [History Last Taken Unknown] fluoxetine 20 mg capsule (Prozac) 20 mg PO QHS 09/20/21 [History Last Taken Unknown] fremanezumab-vfrm 225 mg/1.5 mL subcutaneous auto-injector (Ajovy) 225 mg subcut QMONTH 09/20/21 [History Last Taken Unknown] hydrocortisone 20 mg tablet (Cortef) 15 mg PO DAILY 09/20/21 [History Last Taken 09/21/21] ondansetron 4 mg disintegrating tablet 4 mg PO Q8H PRN nausea and vomiting #10 tabs 09/29/21 [Rx Last Taken Unknown] potassium chloride 20 mEq tablet,extended release 20 meq PO DAILY #7 tabs 09/29/21 [Rx Last Taken Unknown] sucralfate 100 mg/mL oral suspension (Carafate) 10 ml PO TID 11/05/21 [History Last Taken Unknown] pantoprazole 40 mg tablet,delayed release 40 mg PO BID #60 tabs 11/12/21 [Rx Last Taken Unknown] amitriptyline 25 mg tablet 25 mg PO QHS #30 tabs 11/19/21 [Rx Last Taken Unknown] lorazepam 1 mg tablet (Ativan) 1 mg PO TID PRN anxiety #12 tabs 12/02/21 [Rx Last Taken Unknown] alprazolam 0.5 mg tablet (Xanax) 0.5 mg PO TID PRN anxiety #30 tabs 12/16/21 [Rx Last Taken Unknown] esomeprazole magnesium 40 mg capsule,delayed release (Nexium) 40 mg PO DAILY 12/19/21 [History Last Taken Unknown] hydrocodone-acetaminophen 5-325mg 5mg-325mg 1 tab PO Q4H PRN PRN Pain 2 days #5 TABLETS 12/19/21 [Rx Last Taken Unknown] hyoscyamine sulfate 0.125 mg tablet (Levsin) 0.125 mg PO Q4H PRN PRN swallowing 12/19/21 [History Last Taken Unknown] promethazine 25 mg rectal suppository 25 mg VA Q6H PRN nausea and vomiting #12 ea 12/21/21 [Rx Last Taken Unknown] ondansetron 4 mg disintegrating tablet 4 mg PO Q8H PRN nausea and vomiting #10 tabs 07/11/22 [Rx Last Taken Unknown] Allergy/AdvReac Type Severity Reaction Status Date / Time azithromycin Allergy Anaphylaxis Verified 07/11/22 11:31 [From Zithromax Z-Ruiz] bacitracin Allergy Swelling Verified 07/11/22 11:31 [From Neosporin ([id number])] bacitracin zinc Allergy Swelling Verified 07/11/22 11:31 [From Neosporin ([id number])] latex Allergy Rash Verified 07/11/22 11:31 neomycin sulfate Allergy Swelling Verified 07/11/22 11:31 [From Neosporin ([id number])] polymyxin B Allergy Swelling Verified 07/11/22 11:31 [From Neosporin ([id number])] EXCEDRIN Allergy Anaphylaxis Uncoded 07/11/22 11:31 Family History Uncle Diabetes Cancer lung Father Diabetes Grandfather CVA (cerebral vascular accident) Cancer lung, unsure additional type Uncle Cancer brain Grandmother Cancer lung and unsure additional type Surgical History History of appendectomy History of section History of laparoscopic-assisted vaginal hysterectomy History of laparoscopy History of left salpingo-oophorectomy History of thyroidectomy History of tubal ligation History of wisdom tooth extraction Hx laparoscopic cholecystectomy Social History Smoking Status: Former smoker ROS ROS ED Constitutional Constitutional ED: Denies chills or fever(s) ENT ENT ED: Denies rhinorrhea or sore throat Cardiovascular Cardiovascular: Denies chest pain or palpitations Respiratory/Chest Respiratory/Chest: Denies cough or dyspnea Gastrointestinal Gastrointestinal: Reports abdominal pain and nausea; Denies constipation or diarrhea Genitourinary Genitourinary ED: Denies dysuria or hematuria Musculoskeletal Musculoskeletal: Denies arthralgias or back pain Integumentary Denies abscess Neurologic Neurologic: Denies headache(s) Psychiatric Psychiatric: Denies anxiety or depression Endocrine Endocrinology: Denies polydipsia or polyphagia EXAM Physical Exam Const Vital Signs: 07/11/22 11:28 07/11/22 11:31 07/11/22 12:30 Temperature 98.3 F 98.3 F 98.3 F Temperature Source Temporal Temporal Temporal Pulse Rate 95 95 95 Respiratory Rate 16 16 16 Blood Pressure 112/70 112/70 112/70 Blood Pressure Mean 84 84 84 Pulse Ox 100 100 100 Oxygen Delivery Method Room Air Room Air Room Air 07/11/22 13:32 07/11/22 14:06 Temperature Temperature Source Pulse Rate 90 73 Respiratory Rate 18 16 Blood Pressure 91/53 L 118/64 Blood Pressure Mean 65 Pulse Ox 100 99 Oxygen Delivery Method Room Air Positive well nourished General Appearance ED: NAD; Negative for pallor HEENT Reports moist mucous membranes atraumatic Eyes PERRL and EOMs intact bilaterally General Eye ED: Negative for pale conjunctiva or scleral icterus Resp normal respiratory effort and clear to auscultation bilaterally Effort and Inspection: respiratory distress Auscultation: Negative for rales, rhonchi or wheezes Cardio regular rate and regular rhythm GI Palpation: tender RLQ Back/Spine no CVA tenderness Neuro CN's II-XII intact bilaterally Sensorium / Orientation: alert and oriented to person Motor Exam: strength 5/5 throughout Psych mental status grossly normal Skin General Skin Exam: Negative for jaundice or pallor MDM MDM MDM Narrative Medical decision making narrative: Patient presenting with continued upper abdominal pain on the right. She has a history of gastroparesis, endometriosis and has been hospitalized at [facility] for the last 2 weeks prior to coming to the [place] emergency room. She states she was referred to the emergency room here. She states that all of her follow-up appointments are booked way out and she cannot wait for them. She initially had oxycodone which did not improve her pain. She states that she had been doing bland foods and trying to stick to the diet. She is also reports that last night she ate chicken nuggets which made her pain worse. She has not had a fever. I looked through the medical record I did not see a source of her elevated LFTs. I will obtain blood work and give her morphine and Zofran for pain and nausea. I will obtain imaging. Patient CBC shows no leukocytosis. Hemoglobin hematocrit are stable. Platelets are normal. Renal function and electrolytes are normal. LFTs all within normal limits. Lipase is negative at 95. Patient was initially medicated with morphine and Zofran. She complained of more pain and she was given a dose of 0.5 of Dilaudid. I obtained a CT of the abdomen pelvis with IV contrast with does not show anything acute. Again the patient recently had an upper endoscopy when she was in the hospital and a right upper quadrant ultrasound which were normal. I did not find a source of her pain today. Given her vital signs lab work and CT scan are normal I feel she safe for discharge home. Impression: 1. Abdominal pain 2. Nausea 3. History of Davonte's disease Lab Data Attestation: I reviewed the patient's lab results. Labs: Laboratory Results - last 24 hr 07/11/22 07/11/22 12:41 12:41 WBC 7.7 RBC 4.73 Hgb 12.3 Hct 39.5 MCV 83.5 MCH 26.0 L MCHC 31.1 L RDW Std Deviation 44.3 H RDW Coeff of Renetta 14.6 Plt Count 376 MPV 9.5 Immature Gran % (Auto) 0.300 Neut % (Auto) 43.5 L Lymph % (Auto) 43.4 H [place] % (Auto) 9.0 Eos % (Auto) 3.4 Baso % (Auto) 0.4 Absolute Neuts (auto) 3.4 Absolute Lymphs (auto) 3.34 Nucleated RBC % 0 Sodium 139 Potassium 3.9 Chloride 101 Carbon Dioxide 28.0 Anion Gap 10 BUN 9 Creatinine 0.79 Estim Creat Clear Calc 94.55 Est GFR (MDRD) Af Amer 110 Est GFR (MDRD) Non-Af 91 BUN/Creatinine Ratio 11.3 Glucose 75 Calcium 9.2 Total Bilirubin 0.60 Direct Bilirubin 0.09 AST 10 L ALT 24 Alkaline Phosphatase 75 Total Protein 8.0 Albumin 3.3 Globulin 4.7 H Lipase 95 Radiography Diagnostic Testing: Clinical Impression(s) from Imaging Studies Abdomen/Pelvis CT 07/11/22 12:29 IMPRESSION: Normal enhanced CT of the abdomen and pelvis. Electronically Signed: Chivo Yee MD at 13:35 EDT , Discharge Plan Triage Chief Complaint: Abd Pain ED Provider: Rodrigo Mace Dx/Rx/DC Orders Instructions: ED Abdominal Pain Unkn Cause Fem Prescriptions: New ondansetron 4 mg tablet,disintegrating 4 mg PO Q8H PRN (Reason: nausea and vomiting) Qty: 10 0RF No Action divalproex 500 mg tablet,delayed release (DR/EC) 750 mg PO QHS Label Comments: Take 1 tablet by mouth daily at bedtime. nitroglycerin 0.3 mg tablet, sublingual 0.3 mg sublingual Q5M PRN (Reason: cp) Rx Instructions: do not exceed 3 doses per episode pantoprazole 40 mg tablet,delayed release (DR/EC) 40 mg PO BID Qty: 60 1RF hydroxyzine HCl 25 MG tablet 25 mg PO PRN PRN (Reason: Anxiety) levothyroxine 88 MCG tablet 112 mcg PO DAILY@0600 albuterol sulfate 1 INHALER inhaler 1 - 2 puff INHALATION Q4H PRN PRN (Reason: Sob &/Or Wheezing) estradiol 2 MG tablet 2 mg PO DAILY Qty: 100 4RF hydrocortisone [Cortef] 20 mg Tablet 15 mg PO DAILY fluoxetine [Prozac] 20 mg Capsule 20 mg PO QHS eletriptan 20 mg Tablet 20 mg PO Q2H PRN (Reason: MIGRAINES) Ajovy Autoinjector 225 mg/1.5 mL Auto-Injector 225 mg SUBCUT QMONTH potassium chloride 20 mEq tablet extended release 20 meq PO DAILY Qty: 7 0RF ondansetron 4 mg tablet,disintegrating 4 mg PO Q8H PRN (Reason: nausea and vomiting) Qty: 10 0RF sucralfate [Carafate] 100 mg/mL suspension 10 ml PO TID Rx Instructions: Take one hour prior to meals on an empty stomach. lorazepam [Ativan] 1 mg tablet 1 mg PO TID PRN (Reason: anxiety) Qty: 12 0RF hyoscyamine sulfate [Levsin] 0.125 mg Tablet 0.125 mg PO Q4H PRN PRN (Reason: swallowing) esomeprazole magnesium [Nexium] 40 mg Capsule,Delayed Release(Dr/Ec) 40 mg PO DAILY hydrocodone-acetaminophen [hydrocodone-acetaminophen] 1 TABLET tablet 1 tab PO Q4H PRN PRN (Reason: Pain) 2 Days Qty: 5 0RF promethazine 25 mg suppository 25 mg VA Q6H PRN (Reason: nausea and vomiting) Qty: 12 0RF amitriptyline 25 mg tablet 25 mg PO QHS Qty: 30 2RF alprazolam [Xanax] 0.5 mg tablet 0.5 mg PO TID PRN (Reason: anxiety) Qty: 30 0RF Primary Care Provider: Kevin Stauffer Referrals: Kevin Stauffer MD [Primary Care Provider] - Disposition Disposition: Home, Self Care Discharge Date/Time: 07/11/22 14:07
[2022-07-11] MEDS: 0.9% Normal Saline 1,000 ML 1000 ML IV (12:41)
[2022-07-11] MEDS: Morphine 4 MG/ML Syringe IV (12:43)
[2022-07-11] MEDS: Ondansetron 4 MG/2 ML Vial IV (12:43)
[2022-07-11 12:48] LABS: Absolute Lymphocyte Count 3.34 X10^3/uL (0.83-4.51); Absolute Neutrophil Count 3.4 X10^3/uL (2.0-7.7); Basophil# 0.03 X10^3/uL; Basophil% 0.4 % (0-1); Eosinophil# 0.26 X10^3/uL; Eosinophils% 3.4 % (0-5); Hematocrit 39.5 % (37-47); Hemoglobin 12.3 g/dL (12.0-15.0); Lymphocyte # 3.34 X10^3/ul (0.83-4.51); Lymphocyte % 43.4 % (19-41); Mean Corp Hgb Conc 31.1 g/dL (32-36); Mean Corpuscular Volume 83.5 fL (81-99); Mean Platelet Vol. 9.5 fl (6.2-12.0); Monocyte# 0.69 X10^3/uL; NRBC Flagged by Analyzer 0 % (0-5); Neutrophil # 3.36 X10^3/uL (2.7-7.7); Neutrophil % 43.5 % (47-70); Platelet Count 376 K/mm3 (150-450); RBC Distribution Width CV 14.6 % (11.6-14.6); RBC Distribution Width SD 44.3 fl (35.1-43.9); Red Blood Count 4.73 M/mm3 (4.2-5.4); White Blood Count 7.7 K/mm3 (4.4-11.0)
[2022-07-11 13:02] LABS: AST(SGOT) 10 U/L (15-37); Alanine Aminotransfer ALT/SGPT 24 U/L (13-56); Albumin, Serum 3.3 g/dL (3.2-5.0); Alkaline Phosphatase 75 U/L (45-117); Anion Gap 10 (5-15); BUN 9 mg/dL (7-18); BUN/Creat Ratio 11.3 RATIO (10-20); Bilirubin, Direct 0.09 mg/dL (0.00-0.30); Calcium,Total 9.2 mg/dL (8.5-10.1); Chloride 101 mmol/L (98-107); Creatinine, Serum 0.79 mg/dL (0.55-1.02); EST Glomerular Filtration Rate 91 mL/min (>60); Est Glom Filt Rate - Afr Amer 110 mL/min (>60); Estimated Creatinine Clearance 94.55 ml/min; Globulin 4.7 g/dL (2.2-4.2); Glucose 75 mg/dL (74-106); Lipase 95 U/L (73-393); Potassium 3.9 mmol/L (3.5-5.1); Sodium Level 139 mmol/L (136-145)
[2022-07-11] MEDS: HYDROmorphone 0.5 MG/0.5 ML SYRINGE IV (13:26)
[2022-07-11 13:32] VITALS: BP 91/53; PULSE 90; RESP 18; O2SAT 100
[2022-07-11 14:06] VITALS: BP 118/64; PULSE 73; RESP 16; O2SAT 99
== END 2022-07-11 14:07 | disposition home or self-care (01) ==
PROVIDERS: Emergency Provider Student in an Organized Health Care Education/Training Program; PCP Family Medicine; Visit Provider Student in an Organized Health Care Education/Training Program
DX: R10.11 Right upper quadrant pain (principal); R11.0 Nausea; Z87.891 Personal history of nicotine dependence
CPT/HCPCS: 74177; 80048; 80076; 83690; 85025; 96361; 96374; 96375; 99283; J7030; Q9967; A4216; J2405

== ENCOUNTER 2022-08-09 09:22 | Inpatient (IN) | payer MEDICAID, SELFPAY ==
[2022-08-09] VITALS (9 sets, daily range): BP systolic 105–132; BP diastolic 67–80; PULSE 73–128; RESP 11–20; TEMP 35.9–37.1; O2SAT 94–99; BMI 28.5; BMI 28.0
--- NOTE | 2022-08-09 09:36 | ED.RN ---
BLOOD GLUCOSE 91
[2022-08-09 09:51] LABS: Bedside Glucose 91 mg/dL (74-106)
--- NOTE | 2022-08-09 09:51 | EX.ED.DYSGE1 ---
HPI History of Present Illness Chief Complaint: Abd Pain Informant: patient Onset/Context/Timing Onset: Days Context: Gradual Onset Narrative Narrative: Patient presents with vomiting, diarrhea, abdominal pain. She has a history of Davonte's disease and states that she was admitted to the hospital at [facility] about 6 weeks ago with an addisonian crisis. She is concerned that she is in crisis again. She reports increasing abdominal pain with nausea, vomiting, and diarrhea over the past couple of days. No fever has been noted. She is currently doing Solu-Cortef injections. states he found her this morning confused and vomiting. He did not give her her emergency injection, but did call squad. [facility] Medical History Abnormal uterine bleeding (AUB) Addisons disease Adenomyosis Anxiety and depression Asthma Cardiology follow-up encounter Chest pain Chronic female pelvic pain Diabetes Difficulty swallowing Dysphagia Easy bruising Endometriosis determined by laparoscopy Former smoker Gastric reflux Gastroparesis Graves disease History of diverticulitis History of echocardiogram History of IBS History of left heart catheterization History of steroid therapy History of stress test History of ulceration Low iron Migraine Mild intermittent asthma Restless legs Seizures Shortness of breath on exertion Wears glasses Home Medications hydroxyzine HCl 25 mg tablet 25 mg PO PRN PRN Anxiety 10/06/19 [History Last Taken Unknown] levothyroxine 88 mcg tablet 112 mcg PO DAILY@0600 03/02/20 [History Last Taken 09/21/21] albuterol sulfate 90 mcg/actuation aerosol inhaler 1 - 2 puff inhalation Q4H PRN PRN Sob &/Or Wheezing 08/04/20 [History Last Taken Unknown] divalproex 500 mg tablet,delayed release 750 mg PO QHS 12/11/20 [History Last Taken Unknown] nitroglycerin 0.3 mg sublingual tablet 0.3 mg sublingual Q5M PRN cp 12/11/20 [History Last Taken Unknown] estradiol 2 mg tablet 2 mg PO DAILY #100 tabs 12/28/20 [Rx Last Taken Unknown] eletriptan 20 mg tablet 20 mg PO Q2H PRN MIGRAINES 09/20/21 [History Last Taken Unknown] fluoxetine 20 mg capsule (Prozac) 20 mg PO QHS 09/20/21 [History Last Taken Unknown] fremanezumab-vfrm 225 mg/1.5 mL subcutaneous auto-injector (Ajovy) 225 mg subcut QMONTH 09/20/21 [History Last Taken Unknown] hydrocortisone 20 mg tablet (Cortef) 15 mg PO DAILY 09/20/21 [History Last Taken 09/21/21] ondansetron 4 mg disintegrating tablet 4 mg PO Q8H PRN nausea and vomiting #10 tabs 09/29/21 [Rx Last Taken Unknown] potassium chloride 20 mEq tablet,extended release 20 meq PO DAILY #7 tabs 09/29/21 [Rx Last Taken Unknown] sucralfate 100 mg/mL oral suspension (Carafate) 10 ml PO TID 11/05/21 [History Last Taken Unknown] pantoprazole 40 mg tablet,delayed release 40 mg PO BID #60 tabs 11/12/21 [Rx Last Taken Unknown] amitriptyline 25 mg tablet 25 mg PO QHS #30 tabs 11/19/21 [Rx Last Taken Unknown] lorazepam 1 mg tablet (Ativan) 1 mg PO TID PRN anxiety #12 tabs 12/02/21 [Rx Last Taken Unknown] alprazolam 0.5 mg tablet (Xanax) 0.5 mg PO TID PRN anxiety #30 tabs 12/16/21 [Rx Last Taken Unknown] esomeprazole magnesium 40 mg capsule,delayed release (Nexium) 40 mg PO DAILY 12/19/21 [History Last Taken Unknown] hydrocodone-acetaminophen 5-325mg 5mg-325mg 1 tab PO Q4H PRN PRN Pain 2 days #5 TABLETS 12/19/21 [Rx Last Taken Unknown] hyoscyamine sulfate 0.125 mg tablet (Levsin) 0.125 mg PO Q4H PRN PRN swallowing 12/19/21 [History Last Taken Unknown] promethazine 25 mg rectal suppository 25 mg NH Q6H PRN nausea and vomiting #12 ea 12/21/21 [Rx Last Taken Unknown] ondansetron 4 mg disintegrating tablet 4 mg PO Q8H PRN nausea and vomiting #10 tabs 07/11/22 [Rx Last Taken Unknown] hydrocortisone sod succinate 100 mg solution for injection (Solu-Cortef) mg 08/09/22 [History Last Taken Unknown] Allergy/AdvReac Type Severity Reaction Status Date / Time acetaminophen Allergy Anaphylaxis Verified 08/09/22 09:28 [From Excedrin Migraine] aspirin Allergy Anaphylaxis Verified 08/09/22 09:28 [From Excedrin Migraine] azithromycin Allergy Anaphylaxis Verified 08/09/22 09:28 [From Zithromax Z-Ruiz] bacitracin Allergy Swelling Verified 08/09/22 09:28 [From Neosporin ([id number])] bacitracin zinc Allergy Swelling Verified 08/09/22 09:28 [From Neosporin ([id number])] caffeine Allergy Anaphylaxis Verified 08/09/22 09:28 [From Excedrin Migraine] latex Allergy Rash Verified 08/09/22 09:28 neomycin sulfate Allergy Swelling Verified 08/09/22 09:28 [From Neosporin ([id number])] polymyxin B Allergy Swelling Verified 08/09/22 09:28 [From Neosporin ([id number])] Family History Uncle Diabetes Cancer lung Father Diabetes Grandfather CVA (cerebral vascular accident) Cancer lung, unsure additional type Uncle Cancer brain Grandmother Cancer lung and unsure additional type Surgical History History of appendectomy History of section History of laparoscopic-assisted vaginal hysterectomy History of laparoscopy History of left salpingo-oophorectomy History of thyroidectomy History of tubal ligation History of wisdom tooth extraction Hx laparoscopic cholecystectomy Social History Smoking Status: Former smoker ROS ROS ED Constitutional Constitutional ED: Denies chills or fever(s) Eyes Eyes: Denies change in vision or discharge from eye(s) ENT ENT ED: Denies discharge from eye(s), rhinorrhea or sore throat Cardiovascular Cardiovascular: Denies chest pain or palpitations Respiratory/Chest Respiratory/Chest: Denies cough or dyspnea Gastrointestinal Gastrointestinal: Reports abdominal pain, diarrhea, nausea and vomiting Genitourinary Genitourinary ED: Denies difficulty urinating or dysuria Musculoskeletal Musculoskeletal: Denies back pain or extremity pain Integumentary Denies Abrasions or rash Neurologic Neurologic: Denies headache(s) or weakness Allergic/Immunologic Allergic/Immunologic ED: Denies lip swelling or urticaria EXAM Physical Exam Const Vital Signs: 08/09/22 09:23 08/09/22 10:40 08/09/22 11:13 Temperature 96.7 F L Temperature Source Temporal Pulse Rate 128 H 94 82 Respiratory Rate 20 H 12 11 L Blood Pressure 117/71 112/75 105/68 Blood Pressure Mean 86 87 80 Pulse Ox 98 96 99 Oxygen Delivery Method Room Air Room Air Room Air 08/09/22 13:00 Temperature Temperature Source Pulse Rate 107 H Respiratory Rate 16 Blood Pressure Blood Pressure Mean Pulse Ox 96 Oxygen Delivery Method Room Air Positive well nourished and well developed General Appearance ED: well developed HEENT Reports normocephalic and head/scalp atraumatic Eyes PERRL and EOMs intact bilaterally Neck supple Chest Wall inspection of chest normal and palpation of chest normal Resp clear to auscultation bilaterally Resp Narrative: Tachypnea Cardio regular rhythm Rate: tachycardic GI normal to inspection, nondistended, normoactive bowel sounds Palpation: soft Narrative: Abdomen soft with tenderness in the epigastrium and right upper quadrant. No guarding or rebound. Extremity normal to inspection Neuro oriented x3 and no sensory deficits noted Sensorium / Orientation: alert Motor Exam: strength 5/5 throughout Psych mental status grossly normal Skin no rashes or lesions noted MDM MDM MDM Narrative Medical decision making narrative: Patient was given IV Solu-Cortef 100 mg on arrival along with IV fluids. Lab work obtained. She is treated with Dilaudid and Zofran for pain control. Lab Data Attestation: I reviewed the patient's lab results. Labs: Laboratory Results - last 24 hr 08/09/22 08/09/22 08/09/22 09:30 09:30 09:30 WBC 8.4 RBC 4.60 Hgb 12.2 Hct 38.7 MCV 84.1 MCH 26.5 L MCHC 31.5 L RDW Std Deviation 44.5 H RDW Coeff of Renetta 14.6 Plt Count 360 MPV 10.1 Immature Gran % (Auto) 0.400 Neut % (Auto) 44.1 L Lymph % (Auto) 40.9 Durham % (Auto) 11.7 H Eos % (Auto) 2.4 Baso % (Auto) 0.5 Absolute Neuts (auto) 3.7 Absolute Lymphs (auto) 3.45 Nucleated RBC % 0 Sodium 143 Potassium 3.4 L Chloride 108 H Carbon Dioxide 20.0 L Anion Gap 15 BUN 9 Creatinine 1.00 Estim Creat Clear Calc 74.69 Est GFR (MDRD) Af Amer 84 Est GFR (MDRD) Non-Af 70 BUN/Creatinine Ratio 9.0 L Glucose 84 Lactic Acid 5.5 H* Calcium 9.2 Total Bilirubin 0.60 Direct Bilirubin 0.12 AST 10 L ALT 20 Alkaline Phosphatase 66 Total Protein 8.3 H Albumin 3.6 Globulin 4.7 H Lipase 85 POC Glucose 08/09/22 08/09/22 09:31 14:21 WBC RBC Hgb Hct MCV MCH MCHC RDW Std Deviation RDW Coeff of Renetta Plt Count MPV Immature Gran % (Auto) Neut % (Auto) Lymph % (Auto) Durham % (Auto) Eos % (Auto) Baso % (Auto) Absolute Neuts (auto) Absolute Lymphs (auto) Nucleated RBC % Sodium Potassium Chloride Carbon Dioxide Anion Gap BUN Creatinine Estim Creat Clear Calc Est GFR (MDRD) Af Amer Est GFR (MDRD) Non-Af BUN/Creatinine Ratio Glucose Lactic Acid 2.6 H* Calcium Total Bilirubin Direct Bilirubin AST ALT Alkaline Phosphatase Total Protein Albumin Globulin Lipase POC Glucose 91 Radiography Diagnostic Testing: Clinical Impression(s) from Imaging Studies Abdomen/Pelvis CTA 08/09/22 11:37 IMPRESSION: Prior cholecystectomy. No acute abnormality is seen. Electronically Signed: Lonnie Kim MD at 12:24 EDT Reading Location ID and State: [facility] / [place] , Service support , Treatment and Re-Evaluation Narrative: Lab work including CBC, chemistry studies, LFTs are unremarkable. Lactic acid is elevated at 5.5. In light of this patient is sent for CTA of the abdomen and pelvis. This returns with no acute abnormality, prior cholecystectomy noted. Patient's heart rate has improved into the 80s. She has required repeat doses of analgesics. She still states that she feels off and dizzy. 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 Pride at [facility]. I spoke with the transfer line at [facility] and patient has been accepted by medicine. Patient's repeat lactic acid is 2.6. We will treat her with Solu-Cortef 100 mg every 6 hours while awaiting transfer bed. Discharge Plan Triage Chief Complaint: Abd Pain ED Provider: Charleen Guaman Dx/Rx/DC Orders Clinical Impression: Addisonian crisis Prescriptions: No Action divalproex 500 mg tablet,delayed release (DR/EC) 750 mg PO QHS Label Comments: Take 1 tablet by mouth daily at bedtime. nitroglycerin 0.3 mg tablet, sublingual 0.3 mg sublingual Q5M PRN (Reason: cp) Rx Instructions: do not exceed 3 doses per episode pantoprazole 40 mg tablet,delayed release (DR/EC) 40 mg PO BID Qty: 60 1RF hydroxyzine HCl 25 MG tablet 25 mg PO PRN PRN (Reason: Anxiety) levothyroxine 88 MCG tablet 112 mcg PO DAILY@0600 albuterol sulfate 1 INHALER inhaler 1 - 2 puff INHALATION Q4H PRN PRN (Reason: Sob &/Or Wheezing) estradiol 2 MG tablet 2 mg PO DAILY Qty: 100 4RF hydrocortisone [Cortef] 20 mg Tablet 15 mg PO DAILY fluoxetine [Prozac] 20 mg Capsule 20 mg PO QHS eletriptan 20 mg Tablet 20 mg PO Q2H PRN (Reason: MIGRAINES) Ajovy Autoinjector 225 mg/1.5 mL Auto-Injector 225 mg SUBCUT QMONTH potassium chloride 20 mEq tablet extended release 20 meq PO DAILY Qty: 7 0RF ondansetron 4 mg tablet,disintegrating 4 mg PO Q8H PRN (Reason: nausea and vomiting) Qty: 10 0RF sucralfate [Carafate] 100 mg/mL suspension 10 ml PO TID Rx Instructions: Take one hour prior to meals on an empty stomach. lorazepam [Ativan] 1 mg tablet 1 mg PO TID PRN (Reason: anxiety) Qty: 12 0RF hyoscyamine sulfate [Levsin] 0.125 mg Tablet 0.125 mg PO Q4H PRN PRN (Reason: swallowing) esomeprazole magnesium [Nexium] 40 mg Capsule,Delayed Release(Dr/Ec) 40 mg PO DAILY hydrocodone-acetaminophen [hydrocodone-acetaminophen] 1 TABLET tablet 1 tab PO Q4H PRN PRN (Reason: Pain) 2 Days Qty: 5 0RF promethazine 25 mg suppository 25 mg NH Q6H PRN (Reason: nausea and vomiting) Qty: 12 0RF ondansetron 4 mg tablet,disintegrating 4 mg PO Q8H PRN (Reason: nausea and vomiting) Qty: 10 0RF Solu-Cortef 100 mg recon soln Label Comments: INJECT 15MG IN THE MORNING, 7.5MG AT 2PM AND 5MG AT 7PM amitriptyline 25 mg tablet 25 mg PO QHS Qty: 30 2RF alprazolam [Xanax] 0.5 mg tablet 0.5 mg PO TID PRN (Reason: anxiety) Qty: 30 0RF Primary Care Provider: Kevin Stauffer Referrals: Kevin Stauffer MD [Primary Care Provider] - Disposition Disposition: Acute Care Hospital Discharge Location: [facility]
[2022-08-09] MEDS: HYDROmorphone 1 MG/ML Syringe 0.5 MG IV (09:56)
[2022-08-09] MEDS: Ondansetron 4 MG/2 ML Vial IV (09:56)
[2022-08-09] MEDS: Hydrocortisone Sod Succinate 100 MG/2 ML Vial IV ×3 (09:56→22:20)
[2022-08-09] MEDS: 0.9% Normal Saline 1,000 ML 1000 ML IV (09:58)
[2022-08-09 10:12] LABS: Absolute Lymphocyte Count 3.45 X10^3/uL (0.83-4.51); Absolute Neutrophil Count 3.7 X10^3/uL (2.0-7.7); Basophil# 0.04 X10^3/uL; Basophil% 0.5 % (0-1); Eosinophils% 2.4 % (0-5); Hematocrit 38.7 % (37-47); Hemoglobin 12.2 g/dL (12.0-15.0); Lymphocyte # 3.45 X10^3/ul (0.83-4.51); Lymphocyte % 40.9 % (19-41); Mean Corp Hgb Conc 31.5 g/dL (32-36); Mean Corpuscular Hgb 26.5 pg (27.0-32.0); Mean Corpuscular Volume 84.1 fL (81-99); Mean Platelet Vol. 10.1 fl (6.2-12.0); Monocyte# 0.99 X10^3/uL; Monocyte% 11.7 % (0-10); NRBC Flagged by Analyzer 0 % (0-5); Neutrophil # 3.72 X10^3/uL (2.7-7.7); Neutrophil % 44.1 % (47-70); Platelet Count 360 K/mm3 (150-450); RBC Distribution Width CV 14.6 % (11.6-14.6); RBC Distribution Width SD 44.5 fl (35.1-43.9); White Blood Count 8.4 K/mm3 (4.4-11.0)
[2022-08-09 10:37] LABS: AST(SGOT) 10 U/L (15-37); Alanine Aminotransfer ALT/SGPT 20 U/L (13-56); Albumin, Serum 3.6 g/dL (3.2-5.0); Alkaline Phosphatase 66 U/L (45-117); Anion Gap 15 (5-15); BUN 9 mg/dL (7-18); Bilirubin, Direct 0.12 mg/dL (0.00-0.30); Calcium,Total 9.2 mg/dL (8.5-10.1); Chloride 108 mmol/L (98-107); EST Glomerular Filtration Rate 70 mL/min (>60); Est Glom Filt Rate - Afr Amer 84 mL/min (>60); Estimated Creatinine Clearance 74.69 ml/min; Globulin 4.7 g/dL (2.2-4.2); Glucose 84 mg/dL (74-106); Lipase 85 U/L (73-393); Potassium 3.4 mmol/L (3.5-5.1); Protein, Total 8.3 g/dL (6.4-8.2); Sodium Level 143 mmol/L (136-145)
[2022-08-09] MEDS: 0.9% Normal Saline 1,000 ML 250 ML IV ×3 (10:38→18:16)
[2022-08-09 10:54] LABS: Lactic Acid 5.5 mmol/L (0.4-1.9)
[2022-08-09] MEDS: HYDROmorphone 0.5 MG/0.5 ML SYRINGE IV ×4 (11:23→20:25)
[2022-08-09] MEDS: Potassium Chloride 10mEq/100mL 10 MEQ/100 ML IV.SOLN. 100 MEQ IV BOLUS ×4 (11:24→21:26)
--- NOTE | 2022-08-09 11:37 | CT_ITS ---
STUDY: CTA ABDOMEN AND PELVIS WITH CONTRAST REASON FOR EXAM: Female, 27 years old. Abd pain, elevated lactate RADIATION DOSAGE (If Supplied By Facility): CTDIvol = ( 21.10 ) mGy, DLP = ( 709.42 ) mGycm TECHNIQUE: Transaxial images were obtained from the dome of the diaphragm to the symphysis pubis without oral contrast. IV 100mL Isovue-370 was administered. Sagittal and coronal images were reconstructed. Individualized dose optimization techniques were used for this CT. COMPARISON: Comparison is made with prior study 07/11/2022. FINDINGS: The visualized lung bases are unremarkable. The visualized portions of the heart are within normal limits. Normal liver. The patient is status post cholecystectomy. Normal spleen. Normal pancreas. Normal bilateral adrenal glands. Normal right kidney. Normal left kidney. Normal visualized stomach. Normal small intestine. There are scattered colonic diverticula consistent with diverticulosis. The appendix is visualized and appears normal. Normal abdominal aorta. Normal inferior vena cava. Normal retroperitoneum. Normal urinary bladder. Normal abdominal wall. Normal osseous structures. CT/CT ANGIO ABD&PEL W/O&W/DYE IMPRESSION: Prior cholecystectomy. No acute abnormality is seen. Electronically Signed: Lonnie Kim MD at 12:24 EDT ,
[2022-08-09] MEDS: fentaNYL 100 MCG/2 ML Ampul 50 MCG IV (13:06)
--- NOTE | 2022-08-09 13:48 | NURSING ---
CALLED [facility] ABOUT TRANSFER
[2022-08-09 14:05] LABS: Reflex Lactate? Y
[2022-08-09 15:02] LABS: Lactic Acid 2.6 mmol/L (0.4-1.9)
--- NOTE | 2022-08-09 15:18 | NURSING ---
ACCEPTED AT [facility] BY DR BAILEY. WAITING ON A ROOM
--- NOTE | 2022-08-09 17:04 | NURSING ---
CALLED [facility]. TALKED TO [facility]. NO BED YET
--- NOTE | 2022-08-09 18:07 | NURSING ---
MED SURG KJ ADDISONIAN CRISIS, NAUSEA, VOMITING
--- NOTE | 2022-08-09 18:50 | PCM.HP.STD ---
HPI - General General Date of Admission: 08/09/22 Date of Service: 08/09/22 Chief Complaint: Abdominal pain, nausea and vomiting and diarrhea for past few days HPI Narrative SONIA SZYMANSKI, is a 27 F with multiple comorbidities at young age including Sargents's disease, Graves' disease status post thyroidectomy in 2015 came to ED for nausea, vomiting, diarrhea for past few days. She stated she initially had constipation could not move bowel for few days then started having runny bowel movement for last 2 to 3 days. She not had bowel movement today. She denies fever and headache. She has persistent vomiting. Abdominal pain is mainly epigastric/upper abdomen, cramping in nature intermittent after every few hours lasting for half hour to 1 hour. She has severe abdominal pain ranging 8-10/10 intensity. She was admitted in [facility] last week of May for addisonian crisis and she feels the same way. 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 She is also confused in the morning. Patient other comorbidities which includes migraine disease, anxiety, depression, GERD. She also has gastric ulcer but on recent [facility] admission she had EGD and was told ulcer is small in size and healing. Denies fever. In ED, CT head, abdomen pelvis CTA which did not show acute abnormality. She had appendectomy, cholecystectomy, abdominal hysterectomy and left salpingo-oophorectomy. She was told that she has endometriosis and is growing in pelvic wall. In triage, she was tachycardic heart rate 128 bpm, BP 117/71 with no hypoxia or tachypnea. [facility] Medical History Abnormal uterine bleeding (AUB) Addisons disease Adenomyosis Anxiety and depression Asthma Cardiology follow-up encounter Chest pain Chronic female pelvic pain Diabetes Difficulty swallowing Dysphagia Easy bruising Endometriosis determined by laparoscopy Former smoker Gastric reflux Gastroparesis Graves disease History of diverticulitis History of echocardiogram History of IBS History of left heart catheterization History of steroid therapy History of stress test History of ulceration Low iron Migraine Mild intermittent asthma Restless legs Seizures Shortness of breath on exertion Wears glasses Home Medications albuterol sulfate 90 mcg/actuation aerosol inhaler 1 - 2 puff inhalation Q4H PRN PRN Sob &/Or Wheezing 08/04/20 [History Last Taken Unknown] nitroglycerin 0.3 mg sublingual tablet 0.3 mg sublingual Q5M PRN cp 12/11/20 [History Last Taken Unknown] fremanezumab-vfrm 225 mg/1.5 mL subcutaneous auto-injector (Ajovy) 225 mg subcut QMONTH MIGRAINES 09/20/21 [History Last Taken 07/12/22] ondansetron 4 mg disintegrating tablet 4 mg PO Q8H PRN nausea and vomiting #10 tabs 09/29/21 [Rx Last Taken 2 Days Ago ~08/07/22] sucralfate 100 mg/mL oral suspension (Carafate) 10 ml PO TID GERD 11/05/21 [History Last Taken Unknown] lorazepam 1 mg tablet (Ativan) 1 mg PO TID PRN anxiety #12 tabs 12/02/21 [Rx Last Taken 08/08/22] esomeprazole magnesium 40 mg capsule,delayed release (Nexium) 40 mg PO DAILY GERD 12/19/21 [History Last Taken 08/08/22] acarbose 25 mg tablet 25 mg PO TID sugar 08/09/22 [History Last Taken Unknown] albuterol sulfate 90 mcg/actuation aerosol inhaler (Ventolin HFA) 2 inh inhalation Q4H PRN sob 08/09/22 [History Last Taken Unknown] buspirone 5 mg tablet 5 mg PO TID ANXIETY 08/09/22 [History Last Taken 08/08/22] divalproex 250 mg tablet,delayed release 250 mg PO UD SEIZURE 08/09/22 [History Last Taken 08/08/22] eletriptan 40 mg tablet 40 mg PO DAILY migraines 08/09/22 [History Last Taken 2 Days Ago ~08/07/22] estradiol 0.0375 mg/24 hr weekly transdermal patch 0.0375 mg transdermal MO HORMONES 08/09/22 [History Last Taken 08/01/22] fludrocortisone 0.1 mg tablet 0.1 mg PO DAILY ADDISONS 08/09/22 [History Last Taken 08/08/22] fluoxetine 40 mg capsule 40 mg PO DAILY ANXIETY 08/09/22 [History Last Taken 08/08/22] glucagon 1 mg/0.2 mL subcutaneous auto-injector (Gvoke HypoPen 2-Pack) 1 mg subcut DAILY PRN PRN Hypoglycemia 10/18/22 [History Last Taken Unknown] hydrocortisone sod succinate 100 mg solution for injection (Solu-Cortef) 5 - 15 mg IM TID ADDISONS 08/09/22 [History Last Taken 08/09/22] hydroxychloroquine 200 mg tablet 200 mg PO BID ARTHRITIS 08/09/22 [History Last Taken 08/08/22] levothyroxine 137 mcg tablet 137 mcg PO DAILY thyroid 08/09/22 [History Last Taken 08/08/22] tizanidine 4 mg tablet 4 mg PO Q8H PRN Spasms 08/09/22 [History Last Taken 2 Days Ago ~08/07/22] trazodone 100 mg tablet 100 mg PO QHS SLEEP 08/09/22 [History Last Taken 08/07/22] Allergy/AdvReac Type Severity Reaction Status Date / Time acetaminophen Allergy Anaphylaxis Verified 08/09/22 09:28 [From Excedrin Migraine] aspirin Allergy Anaphylaxis Verified 08/09/22 09:28 [From Excedrin Migraine] azithromycin Allergy Anaphylaxis Verified 08/09/22 09:28 [From Zithromax Z-Ruiz] bacitracin Allergy Swelling Verified 08/09/22 09:28 [From Neosporin ([id number])] bacitracin zinc Allergy Swelling Verified 08/09/22 09:28 [From Neosporin ([id number])] caffeine Allergy Anaphylaxis Verified 08/09/22 09:28 [From Excedrin Migraine] latex Allergy Rash Verified 08/09/22 09:28 neomycin sulfate Allergy Swelling Verified 08/09/22 09:28 [From Neosporin ([id number])] polymyxin B Allergy Swelling Verified 08/09/22 09:28 [From Neosporin ([id number])] Family History Uncle Diabetes Cancer lung Father Diabetes Grandfather CVA (cerebral vascular accident) Cancer lung, unsure additional type Uncle Cancer brain Grandmother Cancer lung and unsure additional type Surgical History History of appendectomy History of section History of laparoscopic-assisted vaginal hysterectomy History of laparoscopy History of left salpingo-oophorectomy History of thyroidectomy History of tubal ligation History of wisdom tooth extraction Hx laparoscopic cholecystectomy Social History Smoking Status: Former smoker ROS ROS Narrative Constitutional: Reports fatigue and weakness, dehydrated. HEENT: Reports systems reviewed and no addt'l complaints, except as documented Respiratory/Chest: Denies chest pain, shortness of breath at rest or with exertion Gastrointestinal: Denies hematemesis, melena or hematochezia. Rest as described in HPI. Genitourinary: Denies burning urination or new urinary tract symptoms Musculoskeletal: Sometimes muscle spasm on Flexeril. Neurologic:. History of seizure on antiepileptic and chronic migraine headaches on migraine prophylaxis. Psychiatric: Anxiety and depression. Multiple functional disorders skin: No ulcer. No rash Endocrinology: Sargents's disease. Hypothyroidism after thyroidectomy for Graves' disease. Intermittent sometimes hypoglycemia. Hematologic/Lymphatic: Reports systems reviewed and no addt'l complaints, except as documented Rest 14 ROS are negative except as mentioned in HPI Vital Signs Vital Signs Vital Signs: 08/09/22 09:23 08/09/22 10:40 08/09/22 11:13 Temperature 96.7 F L Temperature Source Temporal Pulse Rate 128 H 94 82 Respiratory Rate 20 H 12 11 L Blood Pressure 117/71 112/75 105/68 Blood Pressure Mean 86 87 80 Pulse Ox 98 96 99 Oxygen Delivery Method Room Air Room Air Room Air 08/09/22 13:00 08/09/22 15:00 08/09/22 17:00 Temperature Temperature Source Pulse Rate 107 H 100 73 Respiratory Rate 16 14 17 Blood Pressure Blood Pressure Mean Pulse Ox 96 98 96 Oxygen Delivery Method Room Air Room Air Room Air 08/09/22 18:00 Temperature 98.8 F Temperature Source Temporal Pulse Rate 78 Respiratory Rate 13 Blood Pressure 132/78 H Blood Pressure Mean 96 Pulse Ox 94 Oxygen Delivery Method Room Air Weight Weight: 171 lb 8.314 oz Body Mass Index (BMI) 28.5 Physical Exam Narrative Physical exam General: Alert, Oriented x3, Cooperative HEENT: Atraumatic, PERRLA, EOMI, Normocephalic Oral: Oral mucosa dry. No Gingival or Mucosal Lesions/ Ulcerations Neck: Supple, No JVD, Negative Carotid Bruits Lungs: Air entry equal in bilateral lung bases. No crepitation/rhonchi Cardiovascular: Sinus rhythm, regular rate and rhythm, Normal S1, Normal S2, No murmurs Abdomen: Bowel Sounds hyperactive, soft, Non Tender, Non-Distended : No renal angle tenderness. No suprapubic tenderness. Extremities: No edema, Capillary Refill Less than 3 Seconds Skin: No rashes, No breakdown Musculoskeletal: No Tenderness to Palpation of Joints or Extremities. ROM full. Neurological: Cranial nerves II-XII grossly intact, DTR 2+/4 and Symmetrical, Neuro grossly intact Psych/Mental Status: Anxious. Results Lab / Micro Data Result Diagrams: 08/09/22 09:30 08/09/22 09:30 Labs: Laboratory Results - last 24 hr 08/09/22 09:30: WBC 8.4, RBC 4.60, Hgb 12.2, Hct 38.7, MCV 84.1, MCH 26.5 L, MCHC 31.5 L, RDW Std Deviation 44.5 H, RDW Coeff of Renetta 14.6, Plt Count 360, MPV 10.1, Immature Gran % (Auto) 0.400, Neut % (Auto) 44.1 L, Lymph % (Auto) 40.9, [place] % (Auto) 11.7 H, Eos % (Auto) 2.4, Baso % (Auto) 0.5, Absolute Neuts (auto) 3.7, Absolute Lymphs (auto) 3.45, Nucleated RBC % 0 08/09/22 09:30: Sodium 143, Potassium 3.4 L, Chloride 108 H, Carbon Dioxide 20.0 L, Anion Gap 15, BUN 9, Creatinine 1.00, Estim Creat Clear Calc 74.69, Est GFR (MDRD) Af Amer 84, Est GFR (MDRD) Non-Af 70, BUN/Creatinine Ratio 9.0 L, Glucose 84, Calcium 9.2, Total Bilirubin 0.60, Direct Bilirubin 0.12, AST 10 L, ALT 20, Alkaline Phosphatase 66, Total Protein 8.3 H, Albumin 3.6, Globulin 4.7 H, Lipase 85 08/09/22 09:30: Lactic Acid 5.5 H* 08/09/22 09:31: POC Glucose 91 08/09/22 14:21: Lactic Acid 2.6 H* Radiology Impression Abdomen/Pelvis CTA 08/09/22 11:37 IMPRESSION: Prior cholecystectomy. No acute abnormality is seen. Electronically Signed: Lonnie Kim MD at 12:24 EDT , Assessment & Plan Assessment/Plan (1) Addisonian crisis: (2) Epigastric pain: PLAN: Plan This is a 27-year-old female with history of Sargents's disease admitted for abdominal pain, nausea vomiting dehydration and tachycardia suggestive of Davonte's crisis. 1. Davonte's crisis: Patient is being admitted to [facility] floor. Patient was discharged with normal saline bolus in ED. Started on IV fluid Ringer lactate to 50 mill per hour for 1 L and then 150 mill per hour to continue. Patient is accepted in [facility] but they do not have beds therefore admitted in the interim period. As per ED, they might have bed tomorrow AM. Patient is started on hydrocortisone 100 mg every 6 hourly in ED and changed to 100 mg every 8 hourly. Mild hypokalemia, potassium getting replaced. Check serum magnesium and phosphorus. Continue soft diet as tolerated. 2. Sargents's disease, Graves' disease status post thyroidectomy subsequent hypothyroidism and intermittent history of hypoglycemia due to Sargents's disease: Serum cortisol, TSH and free T4 ordered for tomorrow AM. Accu-Chek every 6 hourly with hypoglycemia protocol 3. History of GERD and PUD: IV pantoprazole 40 mg 1 dose now and then continue pantoprazole oral once daily and had recent EGD in [facility] [place] and was told stomach ulcer is healing and smaller in size. 4. Migraines headache, chronic focal epilepsy: Home medications continued. 5. Gynecological disorders: Patient had history of abnormal uterine bleeding, endometriosis, adenomyosis status post hysterectomy and left salpingo-oophorectomy: 6. Multiple other comorbidities which include mild intermittent asthma, anxiety and depression, chronic pelvic pain: Home medication reconciliation done Full code ordered. Charges/Coding Visit Charges Inpatient E&M: 93676 Init Hosp L3
[2022-08-09 19:13] LABS: Magnesium 2.1 mg/dL (1.6-2.6); Phosphorus 2.6 mg/dL (2.5-4.9)
[2022-08-09] MEDS: Lactated Ringers 1,000 ML 250 ML IV (20:20)
[2022-08-09] MEDS: LORazepam 1 MG Tablet PO (20:25)
[2022-08-09] MEDS: busPIRone 5 MG Tablet PO (22:18)
[2022-08-09] MEDS: traZODone 100 MG Tablet PO (22:18)
[2022-08-09] MEDS: Divalproex Sodium 250 MG Tablet 500 MG PO (22:19)
[2022-08-09] MEDS: Ensure Plus High Protein 120 ML LIQUID PO (22:24)
[2022-08-09] MEDS: 0.9% Saline Lock 10 ML Syringe IV (22:24)
[2022-08-10] MEDS: 0.9% Saline Lock 10 ML Syringe IV ×3 (01:20→22:13)
[2022-08-10] MEDS: HYDROmorphone 0.5 MG/0.5 ML SYRINGE IV ×7 (01:21→22:12)
[2022-08-10] MEDS: Lactated Ringers 1,000 ML 150 ML IV ×3 (01:21→14:34)
[2022-08-10 02:46] LABS: Bedside Glucose 129 mg/dL (74-106)
[2022-08-10] MEDS: Hydrocortisone Sod Succinate 100 MG/2 ML Vial IV ×3 (05:28→22:13)
[2022-08-10] MEDS: busPIRone 5 MG Tablet PO ×3 (05:28→22:14)
[2022-08-10] MEDS: Sucralfate 1 GM Tablet PO ×3 (05:29→16:35)
[2022-08-10] MEDS: Levothyroxine 137 MCG Tablet PO (05:29)
[2022-08-10 05:50] LABS: Absolute Lymphocyte Count 1.58 X10^3/uL (0.83-4.51); Absolute Neutrophil Count 8.2 X10^3/uL (2.0-7.7); Basophil# 0.01 X10^3/uL; Basophil% 0.1 % (0-1); Hematocrit 31.7 % (37-47); Hemoglobin 10.4 g/dL (12.0-15.0); Lymphocyte # 1.58 X10^3/ul (0.83-4.51); Mean Corp Hgb Conc 32.8 g/dL (32-36); Mean Corpuscular Hgb 27.1 pg (27.0-32.0); Mean Corpuscular Volume 82.6 fL (81-99); Monocyte# 0.68 X10^3/uL; Monocyte% 6.5 % (0-10); NRBC Flagged by Analyzer 0 % (0-5); Neutrophil # 8.22 X10^3/uL (2.7-7.7); Platelet Count 303 K/mm3 (150-450); RBC Distribution Width CV 14.4 % (11.6-14.6); RBC Distribution Width SD 42.9 fl (35.1-43.9); Red Blood Count 3.84 M/mm3 (4.2-5.4); White Blood Count 10.5 K/mm3 (4.4-11.0)
[2022-08-10] MEDS: Ensure Plus High Protein 120 ML LIQUID PO ×3 (05:56→22:14)
[2022-08-10 06:11] LABS: Bedside Glucose 128 mg/dL (74-106)
[2022-08-10 06:40] LABS: Anion Gap 8 (5-15); BUN 5 mg/dL (7-18); BUN/Creat Ratio 7.4 RATIO (10-20); Calcium,Total 8.4 mg/dL (8.5-10.1); Chloride 106 mmol/L (98-107); Creatinine, Serum 0.68 mg/dL (0.55-1.02); EST Glomerular Filtration Rate 109 mL/min (>60); Est Glom Filt Rate - Afr Amer 132 mL/min (>60); Estimated Creatinine Clearance 109.84 ml/min; Glucose 128 mg/dL (74-106); Potassium 3.6 mmol/L (3.5-5.1); Sodium Level 140 mmol/L (136-145); Thyroid Stim Hormone (TSH) 0.33 uIU/mL (0.358-3.74)
[2022-08-10 06:40] LABS: Bacteria 0 SEEN /hpf (None Seen); Mucous, Urine 0 SEEN /hpf (<or=2+); Squamous Epithelial Cells - UA 0 SEEN /hpf (5-10); White Blood Cells 0 SEEN /hpf (0-5)
[2022-08-10 06:41] LABS: Color, Urine Yellow (Yellow); Glucose, Dipstick Normal (Normal); Ketone-Dipstick 5 mg/dl (Negative); Leukocyte Esterase-Dipstick Negative /ul (Negative); Nitrite-Dipstick Negative (Negative); Occult Blood-Urine 50 /ul (Negative); Protein-Dipstick Negative (Negative); Urine Bilirubin Dipstick Negative (Negative); Urine Clarity Clear (Clear); Urine Urobilinogen Normal (Normal)
[2022-08-10 06:47] LABS: Red Blood Cells-Urine 0-5 SEEN /hpf (0-5)
[2022-08-10 07:54] VITALS: O2SAT 95
[2022-08-10] MEDS: Fluoxetine HCl 40 MG CAPSULE PO (08:10)
[2022-08-10] MEDS: Divalproex Sodium 250 MG Tablet PO (08:10)
[2022-08-10] MEDS: Pantoprazole Sodium 40 MG Tablet PO (08:10)
[2022-08-10 08:15] VITALS: BP 107/77; PULSE 80; RESP 16; TEMP 36.4; O2SAT 98
--- NOTE | 2022-08-10 09:45 | CASEMGMT ---
Addendum entered by Grisel Meredith 08/10/22 13:31: Pt plans to trf to [facility] with possibility of trf yet today. RN CM assessment not completed at this time. Original Note: According to [facility] website, the following tertiary facilities are in network: [facility], [facility], [facility], [facility], [facility], [facility] and .
[2022-08-10 12:05] LABS: Bedside Glucose 113 mg/dL (74-106)
[2022-08-10] MEDS: LORazepam 1 MG Tablet PO (12:34)
[2022-08-10 14:40] VITALS: BP 113/75; PULSE 91; RESP 16; TEMP 36.7; O2SAT 97
[2022-08-10] MEDS: proCHLORPERazine 10 MG/2 ML Vial 5 MG IV (15:39)
[2022-08-10 16:55] LABS: Bedside Glucose 118 mg/dL (74-106)
--- NOTE | 2022-08-10 17:01 | PN.HOSP_ITS ---
Subjective Subjective Complains of ongoing right upper quadrant and epigastric pain. Had EGD done [facility] for similar presentation. Attributes this to addisonian crisis however blood pressure and other labs seem to be normal. CT of the abdomen pelvis is unremarkable. Has been transferred to [facility] and transfer is pending. Objective Data Objective Data Vital Signs: Vital Signs Temp Pulse Resp BP Pulse Ox O2 Del Method 98.0 F 91 16 113/75 97 Room Air 08/10/22 14:40 08/10/22 14:40 08/10/22 14:40 08/10/22 14:40 08/10/22 14:40 08/10/22 14:40 Oxygen Delivery Method Room Air Weight: 76.5 kg Body Mass Index (BMI) 28.0 Intake & Output: Intake and Output for Last 24 Hours 08/08/22 08/09/22 08/10/22 23:59 23:59 23:59 Intake Total 4026.67 / 4026.67 3462.5 / 3462.5 Output Total 1150 / 1150 Balance 4026.67 / 3576.67 2312.5 / 2312.5 Lab / Micro Data Result Diagrams: 08/10/22 05:17 08/10/22 05:17 Labs: Laboratory Results - last 24 hr 08/09/22 09:30: Phosphorus 2.6, Magnesium 2.1 08/10/22 01:14: POC Glucose 129 H 08/10/22 05:17: WBC 10.5, RBC 3.84 L, Hgb 10.4 L, Hct 31.7 L, MCV 82.6, MCH 27.1, MCHC 32.8, RDW Std Deviation 42.9, RDW Coeff of Renetta 14.4, Plt Count 303, MPV 10.0, Immature Gran % (Auto) 0.400, Neut % (Auto) 78.0 H, Lymph % (Auto) 15.0 L, [place] % (Auto) 6.5, Eos % (Auto) 0.0, Baso % (Auto) 0.1, Absolute Neuts (auto) 8.2 H, Absolute Lymphs (auto) 1.58, Nucleated RBC % 0 08/10/22 05:17: Sodium 140, Potassium 3.6, Chloride 106, Carbon Dioxide 26.0, Anion Gap 8, BUN 5 L, Creatinine 0.68, Estim Creat Clear Calc 109.84, Est GFR (MDRD) Af Amer 132, Est GFR (MDRD) Non-Af 109, BUN/Creatinine Ratio 7.4 L, Glucose 128 H, Calcium 8.4 L, TSH 0.33 L, Free T4 0.90 08/10/22 05:17: Cortisol 21.50 08/10/22 05:39: POC Glucose 128 H 08/10/22 05:40: Urine Color Yellow, Urine Clarity Clear, Urine pH 7.0, Ur Specific [place] 1.010, Urine Protein Negative, Urine Glucose (UA) Normal, Urine Ketones 5 H, Urine Occult Blood 50 H, Urine Nitrite Negative, Urine Bilirubin Negative, Urine Urobilinogen Normal, Ur Leukocyte Esterase Negative, Urine RBC 0-5 SEEN, Urine WBC 0 SEEN, Ur Squamous Epith Cells 0 SEEN, Urine Bacteria 0 SEEN, Urine Mucus 0 SEEN 08/10/22 11:32: POC Glucose 113 H 08/10/22 16:35: POC Glucose 118 H Physical Exam Const alert, oriented x3, no apparent distress, healthy appearing and well nourished Constitutional Narrative: Overweight, young female lying in bed appears comfortable upon my arrival however complaining of abdominal pain and the need for further opiates HEENT head/scalp atraumatic and moist oral mucous membranes Head and Scalp: normocephalic Resp normal respiratory effort, no retractions, no use of accessory muscles and clear to auscultation bilaterally Auscultation: Negative for crackles, rales, rhonchi or wheezes Cardio regular rate, regular rhythm, S1 normal heart sound, S2 normal heart sound, no murmurs, no rub, no gallops and no clicks GI normal to inspection, nondistended, normoactive bowel sounds and soft to palpation GI Narrative: Patient complains of tenderness with palpation of the right upper quadrant and epigastrium Extremity no clubbing, cyanosis or edema Neuro oriented x3, CN's II-XII intact bilaterally, moves all extremities and no focal motor deficits Speech: speech normal Psych Psych Narrative: Flat affect Assessment & Plan Assessment/Plan (1) Epigastric pain: (2) Lactic acidosis: (3) Nausea & vomiting: PLAN: Plan Abdominal pain/nausea/vomiting -Patient attributes to addisonian crisis however patient never had hypotension nor did she have any abnormal potassium or glucose on presentation -Had EGD earlier this year without any abnormalities identified--> biopsies performed([facility]) -She is following with GI as an outpatient at [facility] and colonoscopy has been recommended however patient has not yet to have this procedure performed -Has appointment documented there via [facility] was 08/01/2022 -Continue on Solu-Cortef as ordered -Continue transitional diet -Decrease IV fluids to 50 cc an hour with normal blood pressure -CTA of the abdomen pelvis was negative -Appears that the patient has a history of abdominal pain in different areas with a history of endometriosis -Continue pain medication wean as able -Patient follows with endocrinology at [facility] in bed is pending availability Lactic acidosis -Resolved -Etiology unclear at this point as patient never had any hypotension and did not appear to be volume depleted or hypoxic History of GERD -Continue PPI -Continue Carafate [place]'s disease -Continue cortisol -Serum cortisol is normal History of Graves' disease status post thyroidectomy -TSH and free T4 within normal limits -Continue vit D History of seizure disorder -Continue divalproex Rheumatoid arthritis -Continue hydroxychloroquine History of migraine headaches -Current issues-patient is on a chronic suppression medication will continue upon discharge -Continue home eletriptan History of endometriosis -No identifiable current issues -Patient status post hysterectomy Depression/anxiety -Continue home Ativan next-Home fluoxetine seen -Continue home BuSpar DVT prophylaxis -We will start Lovenox as patient did not getting out of bed much CODE STATUS Full code Charges/Coding Visit Charges Inpatient E&M: 41529 Subs Hosp L2
[2022-08-10] MEDS: Ondansetron 4 MG/2 ML Vial IV (18:59)
[2022-08-10 20:40] VITALS: BP 116/71; PULSE 79; RESP 14; TEMP 36.8; O2SAT 96
[2022-08-10] MEDS: traZODone 100 MG Tablet PO (22:13)
[2022-08-10] MEDS: Divalproex Sodium 250 MG Tablet 500 MG PO (22:13)
[2022-08-11] MEDS: HYDROmorphone 0.5 MG/0.5 ML SYRINGE IV ×8 (01:19→23:26)
[2022-08-11] MEDS: Lactated Ringers 1,000 ML 50 ML IV ×2 (02:31→20:33)
[2022-08-11 02:40] VITALS: BP 121/82; PULSE 73; RESP 16; TEMP 36.6; O2SAT 98
[2022-08-11 03:56] LABS: Bedside Glucose 154 mg/dL (74-106)
[2022-08-11] MEDS: Ondansetron 4 MG/2 ML Vial IV ×3 (05:14→23:25)
[2022-08-11] MEDS: 0.9% Saline Lock 10 ML Syringe IV ×4 (05:15→20:36)
[2022-08-11] MEDS: Sucralfate 1 GM Tablet PO ×3 (05:21→16:03)
[2022-08-11] MEDS: Levothyroxine 137 MCG Tablet PO (05:21)
[2022-08-11] MEDS: busPIRone 5 MG Tablet PO ×3 (05:21→20:33)
[2022-08-11] MEDS: Hydrocortisone Sod Succinate 100 MG/2 ML Vial IV ×3 (05:22→20:33)
[2022-08-11 07:04] LABS: Anion Gap 8 (5-15); BUN 7 mg/dL (7-18); BUN/Creat Ratio 9.6 RATIO (10-20); Calcium,Total 8.1 mg/dL (8.5-10.1); Chloride 104 mmol/L (98-107); Creatinine, Serum 0.73 mg/dL (0.55-1.02); EST Glomerular Filtration Rate 100 mL/min (>60); Est Glom Filt Rate - Afr Amer 121 mL/min (>60); Estimated Creatinine Clearance 102.32 ml/min; Glucose 107 mg/dL (74-106); Magnesium 1.8 mg/dL (1.6-2.6); Phosphorus 3.8 mg/dL (2.5-4.9); Potassium 3.4 mmol/L (3.5-5.1); Sodium Level 143 mmol/L (136-145)
[2022-08-11 07:51] LABS: Bedside Glucose 127 mg/dL (74-106)
[2022-08-11 08:10] VITALS: BP 124/81; PULSE 65; RESP 16; TEMP 36.6; O2SAT 97
[2022-08-11] MEDS: proCHLORPERazine 10 MG/2 ML Vial 5 MG IV (08:20)
[2022-08-11] MEDS: Potassium Chloride 10mEq/100mL 10 MEQ/100 ML IV.SOLN. 100 MEQ IV BOLUS ×4 (08:21→12:30)
[2022-08-11] MEDS: Pantoprazole Sodium 40 MG Tablet PO (09:29)
[2022-08-11] MEDS: Divalproex Sodium 250 MG Tablet PO (09:29)
[2022-08-11] MEDS: Fluoxetine HCl 40 MG CAPSULE PO (09:29)
[2022-08-11] MEDS: Enoxaparin 40 MG/0.4 ML Syringe SC (09:32)
[2022-08-11 11:25] LABS: Bedside Glucose 163 mg/dL (74-106)
[2022-08-11 14:21] VITALS: BP 107/69; PULSE 70; RESP 16; TEMP 36.7; O2SAT 95
[2022-08-11 14:38] VITALS: PULSE 80
--- NOTE | 2022-08-11 14:52 | PCM.PN.HOSP ---
Subjective Subjective Patient complains of continuing epigastric pain and nausea. Has been able to eat small amounts. Requesting diet be advanced from transitional. No episodes of hypotension and blood sugars appear to be stable. Remains on stress dose steroids. 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 Objective Data Objective Data Vital Signs: Vital Signs Temp Pulse Resp BP Pulse Ox O2 Del Method 98.1 F 80 16 107/69 95 Room Air 08/11/22 14:21 08/11/22 14:38 08/11/22 14:21 08/11/22 14:21 08/11/22 14:21 08/11/22 14:21 Oxygen Delivery Method Room Air Weight: 78.925 kg Body Mass Index (BMI) 28.0 Intake & Output: Intake and Output for Last 24 Hours 08/09/22 08/10/22 08/11/22 23:59 23:59 23:59 Intake Total 4026.67 / 4026.67 4477.5 / 4477.5 1385 / 1385 Output Total 1150 / 1150 1800 / 1800 Balance 4026.67 / 3576.67 3327.5 / 3327.5 -415 / -415 Lab / Micro Data Result Diagrams: 08/10/22 05:17 08/11/22 06:20 Labs: Laboratory Results - last 24 hr 08/10/22 16:35: POC Glucose 118 H 08/11/22 03:18: POC Glucose 154 H 08/11/22 06:20: Sodium 143, Potassium 3.4 L, Chloride 104, Carbon Dioxide 31.0, Anion Gap 8, BUN 7, Creatinine 0.73, Estim Creat Clear Calc 102.32, Est GFR (MDRD) Af Amer 121, Est GFR (MDRD) Non-Af 100, BUN/Creatinine Ratio 9.6 L, Glucose 107 H, Calcium 8.1 L, Phosphorus 3.8, Magnesium 1.8 08/11/22 07:33: POC Glucose 127 H 08/11/22 11:05: POC Glucose 163 H Physical Exam Const alert, oriented x3, no apparent distress, healthy appearing and well nourished Constitutional Narrative: Overweight, young female lying in bed appears comfortable upon my arrival however continues to complain of epigastric/right upper quadrant abdominal pain HEENT head/scalp atraumatic and moist oral mucous membranes Resp normal respiratory effort, no retractions, no use of accessory muscles and clear to auscultation bilaterally Auscultation: Negative for crackles, rales, rhonchi or wheezes Cardio regular rate, regular rhythm, S1 normal heart sound, S2 normal heart sound, no murmurs, no rub, no gallops and no clicks GI normal to inspection, nondistended, normoactive bowel sounds and soft to palpation GI Narrative: Patient complains of tenderness with palpation of the right upper quadrant and epigastrium Extremity no clubbing, cyanosis or edema Neuro oriented x3, moves all extremities and no focal motor deficits Speech: speech normal Psych Psych Narrative: Flat affect Assessment & Plan Assessment/Plan (1) Epigastric pain: (2) Lactic acidosis: (3) Nausea & vomiting: PLAN: Plan Abdominal pain/nausea/vomiting -Patient attributes to addisonian crisis however patient never had hypotension nor did she have any abnormal potassium or glucose on presentation -Had EGD earlier this year without any abnormalities identified--> biopsies performed([facility]) -She is following with GI as an outpatient at [facility] and colonoscopy has been recommended however patient has not yet to have this procedure performed -Has appointment documented there via [facility] was 08/01/2022 -Continue on Solu-Cortef as ordered -Advance to regular diet -Continue IV fluids to 50 cc an hour with normal blood pressure -CTA of the abdomen pelvis was negative -Appears that the patient has a history of abdominal pain in different areas with a history of endometriosis -Continue pain medication wean as able -Patient follows with endocrinology at [facility] in bed is pending availability -Call made to [facility] and they indicates she still on the list however bed is still pending Hypokalemia -IV potassium supplementation with ongoing nausea -Repeat potassium level in a.m. History of GERD -Continue PPI -Continue Carafate Davonte's disease -Continue cortisol -Serum cortisol is normal History of Graves' disease status post thyroidectomy -TSH and free T4 within normal limits -Continue vit D History of seizure disorder -Continue divalproex Rheumatoid arthritis -Continue hydroxychloroquine History of migraine headaches -Current issues-patient is on a chronic suppression medication will continue upon discharge -Continue home eletriptan History of endometriosis -No identifiable current issues and patient without any pelvic pain at this time -Patient status post hysterectomy Depression/anxiety -Continue home Ativan next-Home fluoxetine seen -Continue home BuSpar DVT prophylaxis -Continue Lovenox subcu CODE STATUS Full code Charges/Coding Visit Charges Inpatient E&M: 91602 Subs Hosp L2
[2022-08-11 16:25] LABS: Bedside Glucose 126 mg/dL (74-106)
[2022-08-11] MEDS: Ensure Plus High Protein 120 ML LIQUID PO ×2 (17:27→20:31)
[2022-08-11 20:21] VITALS: BP 129/85; PULSE 86; RESP 15; TEMP 36.8; O2SAT 98
[2022-08-11] MEDS: Divalproex Sodium 250 MG Tablet 500 MG PO (20:32)
[2022-08-11] MEDS: traZODone 100 MG Tablet PO (20:33)
[2022-08-11 21:36] LABS: Bedside Glucose 133 mg/dL (74-106)
[2022-08-12 02:21] VITALS: BP 121/80; PULSE 60; RESP 16; TEMP 36.7; O2SAT 95
[2022-08-12] MEDS: HYDROmorphone 0.5 MG/0.5 ML SYRINGE IV ×6 (02:57→21:43)
[2022-08-12] MEDS: 0.9% Saline Lock 10 ML Syringe IV (02:57)
[2022-08-12] MEDS: Levothyroxine 137 MCG Tablet PO (06:17)
[2022-08-12] MEDS: Hydrocortisone Sod Succinate 100 MG/2 ML Vial IV ×2 (06:17→13:28)
[2022-08-12] MEDS: busPIRone 5 MG Tablet PO ×3 (06:17→21:01)
[2022-08-12] MEDS: Sucralfate 1 GM Tablet PO ×2 (06:22→15:55)
[2022-08-12 07:06] LABS: Bedside Glucose 112 mg/dL (74-106)
[2022-08-12 07:12] LABS: Anion Gap 6 (5-15); BUN 10 mg/dL (7-18); BUN/Creat Ratio 15.8 RATIO (10-20); Calcium,Total 8.5 mg/dL (8.5-10.1); Chloride 101 mmol/L (98-107); Creatinine, Serum 0.63 mg/dL (0.55-1.02); EST Glomerular Filtration Rate 118 mL/min (>60); Est Glom Filt Rate - Afr Amer 142 mL/min (>60); Estimated Creatinine Clearance 118.56 ml/min; Glucose 98 mg/dL (74-106); Potassium 3.2 mmol/L (3.5-5.1); Sodium Level 140 mmol/L (136-145)
[2022-08-12 08:21] VITALS: BP 124/80; PULSE 62; RESP 16; TEMP 36.3; O2SAT 96
[2022-08-12] MEDS: Enoxaparin 40 MG/0.4 ML Syringe SC (09:19)
[2022-08-12] MEDS: Fluoxetine HCl 40 MG CAPSULE PO (09:19)
[2022-08-12] MEDS: Pantoprazole Sodium 40 MG Tablet PO (09:19)
[2022-08-12] MEDS: Divalproex Sodium 250 MG Tablet PO (09:19)
[2022-08-12 09:32] VITALS: O2SAT 94
[2022-08-12] MEDS: Ondansetron 4 MG/2 ML Vial IV (13:24)
--- NOTE | 2022-08-12 14:05 | CASEMGMT ---
RN NATHALIE PAIN COORDINATOR CM to room to meet with patient for initial transition planning/care coordination assessment. SKIP ZELAYA introduced self and role at [facility].? Pt voices understanding and consents to assessment at this time.? Pt resting in bed in no distress at this time.?Family friend, Alie, @ bedside and pt agreeable to her being present during assessment. Pt is A/O at this time and answers all questions appropriately.?? Care providers, pharmacy, and demographics verified/updated at this time. Pt did become tearful during assessment, as she was sharing the stressors of frequent hospitalizations and illnesses and how it has been difficult for her children. Emotional support provided. Offered for poultry raiser to come talk w/her but she declines, stating her director of dementia operations has been in to see her. She also states has good support from her and family. PCP: Dr Stauffer Specialists: Therapeutic Specialist/Dr Pride @ [facility]. Pt also sees GI specialist and neurologist @ [facility] and has upcoming appt @ [facility] to see specialist for recent finding of a pelvic cyst. Preferred Pharmacy: [facility] Insurance: [employer] Prescription Benefit:?Yes Living Will/HPOA:? Pt does not currently have LW/HCPOA and would like to talk w/SW to complete HCPOA, if possible, before she transfers to [facility], made aware. Pt aware SW may not be available prior to transfer, and if not, to f/u with SW @ [facility]. She was also made aware can f/u w/SW as an OP @ [facility] for AD completion. Pt has Check Writer Salesperson Rac Card w/contact information. LNOK: , Chidi. Mother, Sofia. Living Arrangements: Lives w/ and 2 children, ages 4 and 7, in 2-story home w/basement. Bedroom is on 2nd floor. Bathroom is on main floor. Laundry in basement. Pt states she is able to bath/dress herself, but does stay nearby to assist her in/out for safety. assists w/home mgmt tasks and taking care of the children. Pt states after recent hospitalization she has been very weak and the stairs are difficult at times. Discussed w/pt if it is an option for [facility]SU, if needed, in the future. She states that may be a possibility. and family are supportive. Brother came to stay w/her after recent hospitalization to help her while @ work. Transportation:?Pt states she has not been driving recently. provides transportation. DME: States has the following DME:?shower chair, cane, walker, nebulizer, BP machine, functioning glucometer w/supplies. Pt is not on insulin. Discussed option of BSC. She states she does not want to get one at this time, but may consider it in the future. Pt states no need for further DME at this time.? HHC/SNF: No hx of either. Pt states when she left the hospital last admission, they discussed OP therapy w/her, but she declined at that time. Pt states she may consider it once she is able to return home again. Pt voices no further concerns/needs at this time and voiced appreciation of time and support. Advised pt to ask for CM if any further questions/concerns/needs arise.? Voices understanding. PLAN:??transfer to [facility]. Awaiting bed. Ying ARGUETAN RN CM
[2022-08-12 14:20] VITALS: BP 149/99; PULSE 65; RESP 16; TEMP 36.6; O2SAT 97
[2022-08-12 14:20] LABS: Bedside Glucose 102 mg/dL (74-106)
--- NOTE | 2022-08-12 15:57 | PCM.PN.HOSP ---
Objective Data Objective Data Vital Signs: Vital Signs Temp Pulse Resp BP Pulse Ox O2 Del Method 97.3 F L 62 16 124/80 H 94 Room Air 08/12/22 08:21 08/12/22 08:21 08/12/22 08:21 08/12/22 08:21 08/12/22 09:32 08/12/22 09:32 Oxygen Delivery Method Room Air Weight: 78.3 kg Body Mass Index (BMI) 28.0 Intake & Output: Intake and Output for Last 24 Hours 08/10/22 08/11/22 08/12/22 23:59 23:59 23:59 Intake Total 4477.5 / 4477.5 2636.67 / 2836.67 700 / 700 Output Total 1150 / 1150 1800 / 1800 Balance 3327.5 / 3327.5 836.67 / 1036.67 700 / 700 Lab / Micro Data Result Diagrams: 08/10/22 05:17 08/12/22 05:50 Labs: Laboratory Results - last 24 hr 08/11/22 16:01: POC Glucose 126 H 08/11/22 21:00: POC Glucose 133 H 08/12/22 05:50: Sodium 140, Potassium 3.2 L, Chloride 101, Carbon Dioxide 33.0 H, Anion Gap 6, BUN 10, Creatinine 0.63, Estim Creat Clear Calc 118.56, Est GFR (MDRD) Af Amer 142, Est GFR (MDRD) Non-Af 118, BUN/Creatinine Ratio 15.8, Glucose 98, Calcium 8.5 08/12/22 06:27: POC Glucose 112 H 08/12/22 14:00: POC Glucose 102 Physical Exam Const alert, oriented x3, no apparent distress, healthy appearing and well nourished Constitutional Narrative: Overweight, young female lying in bed appears comfortable HEENT head/scalp atraumatic and moist oral mucous membranes Resp normal respiratory effort, no retractions, no use of accessory muscles and clear to auscultation bilaterally Auscultation: Negative for crackles, rales, rhonchi or wheezes Cardio regular rate, regular rhythm, S1 normal heart sound, S2 normal heart sound, no murmurs, no rub, no gallops and no clicks GI normal to inspection, nondistended, normoactive bowel sounds and soft to palpation GI Narrative: tenderness with palpation of the right upper quadrant and epigastrium Extremity no clubbing, cyanosis or edema Neuro oriented x3, CN's II-XII intact bilaterally, moves all extremities and no focal motor deficits Speech: speech normal Psych Psych Narrative: Flat affect Assessment & Plan Assessment/Plan (1) Nausea & vomiting: (2) Epigastric pain: PLAN: Plan Abdominal pain/nausea/vomiting -Patient attributes to addisonian crisis however patient never had hypotension nor did she have any abnormal potassium or glucose on presentation -Had EGD earlier this year without any abnormalities identified--> biopsies performed([facility]) -She is following with GI as an outpatient at [facility] and colonoscopy has been recommended however patient has not yet to have this procedure performed -Has appointment documented there via [facility] was 08/01/2022 -Continue on Solu-Cortef but weaned to 50 3 times daily -Sinew p.o. regular diet however p.o. intake has been poor -Continue IV fluids to 50 cc an hour with normal blood pressure -CTA of the abdomen pelvis was negative -Appears that the patient has a history of abdominal pain in different areas with a history of endometriosis -Decrease Dilaudid from every 3 to every 4 hours -Patient follows with endocrinology at [facility] in bed is pending availability -Call made to [facility] and they indicates she still on the list however bed is still pending--> Maybe there will be a bed later today Hypokalemia -40 mill equivalents p.o. potassium -Repeat potassium level in a.m. History of GERD -Continue PPI -Continue Carafate Davonte's disease -Continue cortisol -Serum cortisol is normal History of Graves' disease status post thyroidectomy -TSH and free T4 within normal limits -Continue vit D History of seizure disorder -Continue divalproex Rheumatoid arthritis -Continue hydroxychloroquine History of migraine headaches -Current issues-patient is on a chronic suppression medication will continue upon discharge -Continue home eletriptan History of endometriosis -No identifiable current issues and patient without any pelvic pain at this time -Patient status post hysterectomy Depression/anxiety -Continue home Ativan next-Home fluoxetine seen -Continue home BuSpar DVT prophylaxis -Continue Lovenox subcu CODE STATUS Full code Charges/Coding Visit Charges Inpatient E&M: 53112 Subs Hosp L2
--- NOTE | 2022-08-12 16:13 | CASEMGMT ---
Social Work Met with patient to complete advanced directives. Original and copy placed on chart. Copies provided to pt. During completion of documents, pt and this worker had conversations about pt's medical conditions, home life, support systems, and concerns pt had for homegoing. Pt expressed her , mother and MIL are all very supportive. Pt has two children whom are being cared for by and in-law's during hospitalization. Pt has been able to visit with children during stay. Pt stated she has a very close relationship with her Senior Major Gifts Officer who is also a counselor. Pt has been speaking with Senior Major Gifts Officer regularly for prayer and therapy. Pt appears to have good insight to health issues and mental health. SW provided ongoing supportive listening, validation of feelings, and emotional support throughout conversation. No other SW needs noted. Mahogany Liz, EDWIN DIAZW
[2022-08-12] MEDS: Lactated Ringers 1,000 ML 50 ML IV (17:17)
[2022-08-12] MEDS: Ensure Plus High Protein 120 ML LIQUID PO (17:18)
[2022-08-12] MEDS: Potassium Chloride Oral Tablet 20 MEQ 40 MEQ PO (17:35)
[2022-08-12 18:46] LABS: Bedside Glucose 165 mg/dL (74-106)
[2022-08-12] MEDS: Hydrocortisone Sod Succinate 100 MG/2 ML Vial 50 MG IV (21:00)
[2022-08-12] MEDS: Divalproex Sodium 250 MG Tablet 500 MG PO (21:01)
[2022-08-12] MEDS: traZODone 100 MG Tablet PO (21:02)
[2022-08-12] MEDS: LORazepam 1 MG Tablet PO (21:05)
[2022-08-12 21:49] VITALS: BP 129/88; PULSE 60; RESP 16; TEMP 36.6; O2SAT 98
[2022-08-12 23:05] LABS: Bedside Glucose 108 mg/dL (74-106)
[2022-08-13] MEDS: HYDROmorphone 0.5 MG/0.5 ML SYRINGE IV ×5 (03:43→21:21)
[2022-08-13 03:49] VITALS: BP 135/83; PULSE 63; RESP 16; TEMP 36.6; O2SAT 98
[2022-08-13] MEDS: busPIRone 5 MG Tablet PO ×3 (05:39→21:20)
[2022-08-13] MEDS: Hydrocortisone Sod Succinate 100 MG/2 ML Vial 50 MG IV ×3 (05:39→21:20)
[2022-08-13] MEDS: Levothyroxine 137 MCG Tablet PO (05:39)
[2022-08-13] MEDS: Sucralfate 1 GM Tablet PO ×3 (05:39→17:07)
[2022-08-13 07:06] LABS: Bedside Glucose 71 mg/dL (74-106)
--- NOTE | 2022-08-13 07:44 | NURSING ---
[facility] transfer line called for an update. No bed available at this time, but it could be this weekend.
[2022-08-13 07:47] LABS: Anion Gap 8 (5-15); BUN 12 mg/dL (7-18); BUN/Creat Ratio 19.5 RATIO (10-20); Calcium,Total 8.5 mg/dL (8.5-10.1); Chloride 101 mmol/L (98-107); Creatinine, Serum 0.62 mg/dL (0.55-1.02); EST Glomerular Filtration Rate 122 mL/min (>60); Est Glom Filt Rate - Afr Amer 147 mL/min (>60); Estimated Creatinine Clearance 120.47 ml/min; Glucose 86 mg/dL (74-106); Potassium 3.5 mmol/L (3.5-5.1); Sodium Level 138 mmol/L (136-145)
[2022-08-13 08:17] VITALS: BP 161/93; PULSE 59; RESP 16; TEMP 36.3; O2SAT 100
[2022-08-13] MEDS: Pantoprazole Sodium 40 MG Tablet PO (08:19)
[2022-08-13] MEDS: Enoxaparin 40 MG/0.4 ML Syringe SC (08:19)
[2022-08-13] MEDS: Ensure Plus High Protein 120 ML LIQUID PO ×3 (08:19→21:29)
[2022-08-13] MEDS: Fluoxetine HCl 40 MG CAPSULE PO (08:19)
[2022-08-13] MEDS: Divalproex Sodium 250 MG Tablet PO (08:20)
[2022-08-13 12:48] VITALS: BP 135/97; PULSE 62; RESP 16; TEMP 36.2; O2SAT 98
[2022-08-13] MEDS: 0.9% Saline Lock 10 ML Syringe IV ×2 (12:53→21:20)
[2022-08-13] MEDS: Ondansetron 4 MG/2 ML Vial IV (12:53)
--- NOTE | 2022-08-13 12:58 | PCM.PN.HOSP ---
Subjective Subjective Patient still remains lightheaded with upright movement, p.o. intake remains poor. Still having abdominal pain that worsens with eating. Blood pressure and electrolytes remained stable. Patient appears to be hydrating herself fairly well. Objective Data Objective Data Vital Signs: Vital Signs Temp Pulse Resp BP Pulse Ox O2 Del Method 97.2 F L 62 16 135/97 H 98 Room Air 08/13/22 12:48 08/13/22 12:48 08/13/22 12:48 08/13/22 12:48 08/13/22 12:48 08/13/22 12:48 Oxygen Delivery Method Room Air Weight: 78.3 kg Body Mass Index (BMI) 28.0 Intake & Output: Intake and Output for Last 24 Hours 08/11/22 08/12/22 08/13/22 23:59 23:59 23:59 Intake Total 2636.67 / 2836.67 1979 1321.67 / 1321.67 Output Total 1800 / 1800 Balance 836.67 / 1036.67 1979 1321.67 / 1321.67 Lab / Micro Data Result Diagrams: 08/10/22 05:17 08/13/22 06:51 Labs: Laboratory Results - last 24 hr 08/12/22 14:00: POC Glucose 102 08/12/22 18:26: POC Glucose 165 H 08/12/22 21:46: POC Glucose 108 H 08/13/22 05:42: POC Glucose 71 L 08/13/22 06:51: Sodium 138, Potassium 3.5, Chloride 101, Carbon Dioxide 29.0, Anion Gap 8, BUN 12, Creatinine 0.62, Estim Creat Clear Calc 120.47, Est GFR (MDRD) Af Amer 147, Est GFR (MDRD) Non-Af 122, BUN/Creatinine Ratio 19.5, Glucose 86, Calcium 8.5 Physical Exam Const alert, oriented x3, no apparent distress, healthy appearing and well nourished Constitutional Narrative: Overweight, young female lying in bed appears comfortable HEENT head/scalp atraumatic and moist oral mucous membranes Resp normal respiratory effort, no retractions, no use of accessory muscles and clear to auscultation bilaterally Auscultation: Negative for crackles, rales, rhonchi or wheezes Cardio regular rate, regular rhythm, S1 normal heart sound, S2 normal heart sound, no murmurs, no rub, no gallops and no clicks GI normal to inspection, nondistended, normoactive bowel sounds and soft to palpation GI Narrative: tenderness with palpation of the right upper quadrant and epigastrium Extremity no clubbing, cyanosis or edema Neuro oriented x3, moves all extremities and no focal motor deficits Speech: speech normal Assessment & Plan Assessment/Plan (1) Nausea & vomiting: (2) Epigastric pain: PLAN: Plan Abdominal pain/nausea/vomiting -Patient attributes to addisonian crisis however patient never had hypotension nor did she have any abnormal potassium or glucose on presentation -Had EGD earlier this year without any abnormalities identified--> biopsies performed([facility]) -She is following with GI as an outpatient at [facility] and colonoscopy has been recommended however patient has not yet to have this procedure performed -Has appointment documented there via [facility] was 08/01/2022 -Continue on Solu-Cortef 50 mg 3 times daily -Continue p.o. regular diet however p.o. intake has been poor -P.o. intake is not improved by Monday and she still at our institution will start Dobbhoff tube feeds -Trial off IV fluids -CTA of the abdomen pelvis was negative -Appears that the patient has a history of abdominal pain in different areas with a history of endometriosis -Continue as needed Dilaudid -Patient follows with endocrinology at [facility] in bed is pending availability -Call made to [facility] and they indicates she still on the list however bed is still pending Hypokalemia - resolved -Continue to monitor History of GERD -Continue PPI -Continue Carafate Davonte's disease -Continue hydrocortisone -Serum cortisol is normal History of Graves' disease status post thyroidectomy -TSH and free T4 within normal limits -Continue vit D History of seizure disorder -Continue divalproex Rheumatoid arthritis -Continue hydroxychloroquine History of migraine headaches -Current issues-patient is on a chronic suppression medication will continue upon discharge -Continue home eletriptan History of endometriosis -No identifiable current issues and patient without any pelvic pain at this time -Patient status post hysterectomy Depression/anxiety -Continue home Ativan next-Home fluoxetine seen -Continue home BuSpar DVT prophylaxis -Continue Lovenox subcu CODE STATUS Full code Charges/Coding Visit Charges Inpatient E&M: 73419 Subs Hosp L2
[2022-08-13 17:12] VITALS: BP 122/91; PULSE 58; RESP 16; TEMP 36.2; O2SAT 97
[2022-08-13 17:40] LABS: Bedside Glucose 117 mg/dL (74-106)
[2022-08-13] MEDS: traZODone 100 MG Tablet PO (21:20)
[2022-08-13] MEDS: Divalproex Sodium 250 MG Tablet 500 MG PO (21:20)
[2022-08-14] VITALS: BP 134/93; PULSE 64; RESP 16; TEMP 36.4; O2SAT 97
[2022-08-14 00:51] LABS: Bedside Glucose 106 mg/dL (74-106)
[2022-08-14] MEDS: HYDROmorphone 0.5 MG/0.5 ML SYRINGE IV ×4 (02:27→15:45)
[2022-08-14] MEDS: 0.9% Saline Lock 10 ML Syringe IV ×5 (02:27→15:45)
[2022-08-14] MEDS: Hydrocortisone Sod Succinate 100 MG/2 ML Vial 50 MG IV ×2 (06:27→15:00)
[2022-08-14] MEDS: Levothyroxine 137 MCG Tablet PO (06:27)
[2022-08-14] MEDS: busPIRone 5 MG Tablet PO ×2 (06:27→15:00)
[2022-08-14] MEDS: Sucralfate 1 GM Tablet PO ×3 (06:28→16:39)
[2022-08-14 06:30] VITALS: BP 132/83; PULSE 56; RESP 16; TEMP 36.3; O2SAT 93
[2022-08-14] MEDS: Ondansetron 4 MG/2 ML Vial IV ×2 (06:35→12:01)
[2022-08-14 07:11] LABS: Bedside Glucose 87 mg/dL (74-106)
--- NOTE | 2022-08-14 07:16 | NURSING ---
[facility] transfer line called at this time and they state medicine has accepted but there is still no bed.
[2022-08-14] MEDS: Enoxaparin 40 MG/0.4 ML Syringe SC (08:32)
[2022-08-14] MEDS: Pantoprazole Sodium 40 MG Tablet PO (08:33)
[2022-08-14] MEDS: Divalproex Sodium 250 MG Tablet PO (08:33)
[2022-08-14] MEDS: Fluoxetine HCl 40 MG CAPSULE PO (08:33)
--- NOTE | 2022-08-14 11:18 | PN.HOSP_ITS ---
Subjective Subjective Patient frustrated as she still having pain and what she describes as true dizziness with position changes and still is waiting for [facility] bed. She states her abdominal pain just worsens with eating. I did discuss with her the need to start enteral feeds tomorrow if she still not taking much by p.o. with [facility]. She voiced understanding and is agreeable to this if need be. She indicates that she is trying to eat however it just increases her pain and nausea. She has had multiple types of testing all of which recently have been fairly unremarkable. Objective Data Objective Data Vital Signs: Vital Signs Temp Pulse Resp BP Pulse Ox O2 Del Method 97.3 F L 56 L 16 132/83 H 93 Room Air 08/14/22 06:30 08/14/22 06:30 08/14/22 06:30 08/14/22 06:30 08/14/22 06:30 08/14/22 06:30 Oxygen Delivery Method Room Air Weight: 76.3 kg Body Mass Index (BMI) 28.0 Intake & Output: Intake and Output for Last 24 Hours 08/12/22 08/13/22 08/14/22 23:59 23:59 23:59 Intake Total 1979 2211.67 / 2211.67 Balance 1979 2211.67 / 2211.67 Lab / Micro Data Result Diagrams: 08/10/22 05:17 08/13/22 06:51 Labs: Laboratory Results - last 24 hr 08/13/22 17:05: POC Glucose 117 H 08/14/22 00:29: POC Glucose 106 08/14/22 06:41: POC Glucose 87 Physical Exam Narrative . Const alert, oriented x3, no apparent distress, healthy appearing and well nourished Constitutional Narrative: Overweight, young female lying in bed appears comfortable, watching television, hardly tray at bedside HEENT head/scalp atraumatic and moist oral mucous membranes Resp normal respiratory effort, no retractions, no use of accessory muscles and clear to auscultation bilaterally Auscultation: Negative for crackles, rales, rhonchi or wheezes Cardio regular rate, regular rhythm, S1 normal heart sound, S2 normal heart sound, no murmurs, no rub, no gallops and no clicks GI normal to inspection, nondistended, normoactive bowel sounds and soft to palpation GI Narrative: tenderness with palpation of the right upper quadrant and epigastrium Extremity no clubbing, cyanosis or edema Neuro oriented x3, moves all extremities and no focal motor deficits Speech: speech normal Psych Psych Narrative: Flat affect Assessment & Plan Assessment/Plan (1) Nausea & vomiting: (2) Epigastric pain: PLAN: Plan Abdominal pain/nausea/vomiting -Patient attributes to addisonian crisis however patient never had hypotension nor did she have any abnormal potassium or glucose on presentation -Had EGD earlier this year without any abnormalities identified--> biopsies performed([facility]) -She is following with GI as an outpatient at [facility] and colonoscopy has been idalia mmended however patient has not yet to have this procedure performed -Has appointment documented there via [facility] was 08/01/2022 -Continue on Solu-Cortef 50 mg 3 times daily -Continue p.o. regular diet however p.o. intake has been poor -P.o. intake is not improved by Monday and she still at our institution will start Dobbhoff tube feeds -Trial off IV fluids -CTA of the abdomen pelvis was negative -Appears that the patient has a history of abdominal pain in different areas with a history of endometriosis -Continue as needed Dilaudid -Patient follows with endocrinology at [facility] in bed is pending availability -Call made to [facility] and they indicates she still on the list however bed is still pending--> possibly later today Hypokalemia -resolved -Continue to monitor with repeat BMP in a.m. History of GERD -Continue PPI -Continue Carafate Davonte's disease -Continue hydrocortisone as ordered -Serum cortisol is normal History of Graves' disease status post thyroidectomy -TSH and free T4 within normal limits -Continue TSH History of seizure disorder -Continue divalproex Rheumatoid arthritis -Continue hydroxychloroquine History of migraine headaches -Current issues-patient is on a chronic suppression medication will continue upon discharge -Continue home eletriptan History of endometriosis -No identifiable current issues and patient without any pelvic pain at this time -Patient status post hysterectomy Depression/anxiety -Continue home Ativan next-Home fluoxetine seen -Continue home BuSpar DVT prophylaxis -Continue Lovenox subcu CODE STATUS Full code Charges/Coding Visit Charges Inpatient E&M: 22727 Subs Hosp L2
[2022-08-14 12:02] VITALS: BP 144/94; PULSE 57; RESP 16; TEMP 36.7; O2SAT 97
[2022-08-14 12:30] LABS: Bedside Glucose 82 mg/dL (74-106)
--- NOTE | 2022-08-14 14:33 | NURSING ---
Called [facility] transfer line at this time and [facility] transfer center states there is still no bed available.
[2022-08-14 17:25] LABS: Bedside Glucose 162 mg/dL (74-106)
--- NOTE | 2022-08-14 17:44 | NURSING ---
Report called to [facility] at [facility].
--- NOTE | 2022-08-15 06:51 | PCM.DC.SUM ---
Providers Date of Admission: 08/09/22 Date of Discharge: 08/14/22 Primary Care Physician: Dr. Kevin Stauffer MD Reason For Visit: ABDOMINAL PAIN, ADDISONS DISEASE ON HYDROCORTISONE Diagnosis Discharge Diagnosis (1) Nausea & vomiting: Status: Acute Code(s): R11.2 - Nausea with vomiting, unspecified (2) Epigastric pain: Status: Acute Code(s): R10.13 - Epigastric pain Medications at Discharge Home Medications albuterol sulfate 90 mcg/actuation aerosol inhaler 1 - 2 puff inhalation Q4H PRN PRN Sob &/Or Wheezing 08/04/20 nitroglycerin 0.3 mg sublingual tablet 0.3 mg sublingual Q5M PRN cp 12/11/20 fremanezumab-vfrm 225 mg/1.5 mL subcutaneous auto-injector (Ajovy) 225 mg subcut QMONTH MIGRAINES 09/20/21 ondansetron 4 mg disintegrating tablet 4 mg PO Q8H PRN nausea and vomiting #10 tabs 09/29/21 sucralfate 100 mg/mL oral suspension (Carafate) 10 ml PO TID GERD 11/05/21 lorazepam 1 mg tablet (Ativan) 1 mg PO TID PRN anxiety #12 tabs 12/02/21 esomeprazole magnesium 40 mg capsule,delayed release (Nexium) 40 mg PO DAILY GERD 12/19/21 acarbose 25 mg tablet 25 mg PO TID sugar 08/09/22 albuterol sulfate 90 mcg/actuation aerosol inhaler (Ventolin HFA) 2 inh inhalation Q4H PRN sob 08/09/22 buspirone 5 mg tablet 5 mg PO TID ANXIETY 08/09/22 divalproex 250 mg tablet,delayed release 250 mg PO UD SEIZURE 08/09/22 eletriptan 40 mg tablet 40 mg PO DAILY migraines 08/09/22 estradiol 0.0375 mg/24 hr weekly transdermal patch 0.0375 mg transdermal MO HORMONES 08/09/22 fludrocortisone 0.1 mg tablet 0.1 mg PO DAILY ADDISONS 08/09/22 fluoxetine 40 mg capsule 40 mg PO DAILY ANXIETY 08/09/22 glucagon 1 mg/0.2 mL subcutaneous auto-injector (Gvoke HypoPen 2-Pack) 1 mg subcut DAILY PRN PRN Hypoglycemia 08/09/22 hydrocortisone sod succinate 100 mg solution for injection (Solu-Cortef) 5 - 15 mg IM TID ADDISONS 08/09/22 hydroxychloroquine 200 mg tablet 200 mg PO BID ARTHRITIS 08/09/22 levothyroxine 137 mcg tablet 137 mcg PO DAILY thyroid 08/09/22 tizanidine 4 mg tablet 4 mg PO Q8H PRN Spasms 08/09/22 trazodone 100 mg tablet 100 mg PO QHS SLEEP 08/09/22 Hospital Course Operations None Procedures - (CTA abdomen pelvis) Summary of Care Provided Minutes Spent on Discharge: 25 Hospital Course: Ms. Avendaño is a 27-year-old female who presented to emergency department [facility] on 08/09/2022 with abdominal pain, nausea and vomiting, and diarrhea that had been ongoing for a couple days prior to presentation. 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 She indicated that she had not had a bowel movement on the day of presentation and had persistent vomiting with nausea. She is also had ongoing abdominal pain mainly in the epigastric and bilateral upper abdomen. She reported was cramping in nature and intermittent. She complained that it was 8 out of 10 in intensity and that her clinical informatics spec at [facility] has been adjusting her Solu-Cortef dosing. She has had multiple recent studies including gastric emptying study which was normal, an EGD which was normal, and has followed up with GI up at [facility] and has been scheduled for colonoscopy to be done on September 01. She does have history of gastric ulcer but has noted an EGD was done recently and was noted to be improved with no significant abnormalities. Upon presentation she was tachycardic with a heart rate of 128 but blood pressure was 117/171. Given her history and concern for possible issues related to her Nassau's [facility] was contacted and they accepted her for transfer. Bed was not available immediately so she was admitted to hospital. She was maintained on IV fluids and her electrolytes and blood pressures were monitored. She had no significant blood pressure fluctuations during her hospital course and was only mildly hypokalemic intermittently for which she was replaced with potassium. Her p.o. intake remained poor however she was able to maintain hydration and we were able to discontinue IV fluids. She was on stress dose steroids and on admission initially was placed on 100 every 8 this was subsequently decreased to 50 every 8 prior to discharge. A bed finally became available on 08/14/2022 when she was discharged to [facility] for further work-up and evaluation by her clinical informatics spec. Discharge diagnoses: Abdominal pain/nausea and vomiting Nassau's disease Intermittent hypokalemia GERD History of PUD History of Graves' disease status post thyroidectomy Seizure disorder RA History of migraine headaches History of endometriosis Depression Anxiety Physical Exam Narrative . Const alert, oriented x3, no apparent distress, healthy appearing and well nourished Constitutional Narrative: Overweight, young female lying in bed appears comfortable, watching television, hardly eaten tray at bedside General Appearance: cooperative, comfortable, well kempt and well developed Orientation / Consciousness: awake Exam Limitations: no limitations Nutritional Appearance: overweight HEENT normocephalic, head/scalp atraumatic, hearing grossly normal bilaterally and moist oral mucous membranes Resp normal respiratory effort, no retractions, no use of accessory muscles and clear to auscultation bilaterally Auscultation: Negative for crackles, rales, rhonchi or wheezes Cardio regular rate, regular rhythm, S1 normal heart sound, S2 normal heart sound, no murmurs, no rub, no gallops and no clicks GI normal to inspection, nondistended, normoactive bowel sounds and soft to palpation GI Narrative: tenderness with palpation of the right upper quadrant and epigastrium Extremity no clubbing, cyanosis or edema Neuro oriented x3, CN's II-XII intact bilaterally, moves all extremities and no focal motor deficits Speech: speech normal Psych Psych Narrative: Flat affect Weight / BMI Weight Weight: 76.3 kg Body Mass Index (BMI) 28.0 ABG / Lab / Microbiology Data Result Diagrams: 08/10/22 05:17 08/13/22 06:51 Laboratory: Laboratory Results - last 24 hr 08/14/22 06:41: POC Glucose 87 08/14/22 11:55: POC Glucose 82 08/14/22 17:03: POC Glucose 162 H Meaningful Use Info Meaningful Use Diagnoses (Choose all that apply): None applicable Discharge Plan Admission Admit Date/Time: 08/09/22 18:09 Primary Reason for Your Visit: Nausea vomiting/abdominal pain Attending Provider: Litzy Young Primary Care Provider: Kevin Stauffer Consulting Providers: Saqib Cohen Discharge Orders/Prescriptions Prescriptions: No Action nitroglycerin 0.3 mg tablet, sublingual 0.3 mg sublingual Q5M PRN (Reason: cp) Rx Instructions: do not exceed 3 doses per episode albuterol sulfate 1 INHALER inhaler 1 - 2 puff INHALATION Q4H PRN PRN (Reason: Sob &/Or Wheezing) Ajovy Autoinjector 225 mg/1.5 mL Auto-Injector 225 mg SUBCUT QMONTH ondansetron 4 mg tablet,disintegrating 4 mg PO Q8H PRN (Reason: nausea and vomiting) Qty: 10 0RF sucralfate [Carafate] 100 mg/mL suspension 10 ml PO TID Rx Instructions: Take one hour prior to meals on an empty stomach. lorazepam [Ativan] 1 mg tablet 1 mg PO TID PRN (Reason: anxiety) Qty: 12 0RF esomeprazole magnesium [Nexium] 40 mg Capsule,Delayed Release(Dr/Ec) 40 mg PO DAILY Solu-Cortef 100 mg recon soln 5 - 15 mg IM TID fluoxetine 40 mg capsule 40 mg PO DAILY Label Comments: Take 1 capsule by mouth once daily. buspirone 5 mg tablet 5 mg PO TID Label Comments: TAKE 1 TABLET BY MOUTH THREE TIMES DAILY levothyroxine 137 mcg tablet 137 mcg PO DAILY Label Comments: Take 1 tablet by mouth once daily. divalproex 250 mg tablet,delayed release (DR/EC) 250 mg PO UD Label Comments: Take 1 tablet by mouth every morning AND TAKE 2 tablets every evening. tizanidine 4 mg tablet 4 mg PO Q8H PRN (Reason: Spasms) Label Comments: TAKE 1 TABLET BY MOUTH EVERY 8 HOURS NEEDED trazodone 100 mg tablet 100 mg PO QHS Label Comments: Take 1 tablet by mouth daily at bedtime. hydroxychloroquine 200 mg tablet 200 mg PO BID Label Comments: Take 1 tablet by mouth twice daily. albuterol sulfate [Ventolin HFA] 90 mcg/actuation HFA aerosol inhaler 2 inh INHALATION Q4H PRN (Reason: sob) Label Comments: Inhale 2 Puffs as instructed every 4 hours as needed. fludrocortisone 0.1 mg tablet 0.1 mg PO DAILY Label Comments: TAKE 1 TABLET BY MOUTH EVERY DAY acarbose 25 mg tablet 25 mg PO TID Label Comments: TAKE 1 TABLET THREE TIMES DAILY eletriptan 40 mg tablet 40 mg PO DAILY Label Comments: Take 1 tablet at the onset of migraine. Repeat 1 dose in 2 hours, if needed. estradiol 0.0375 mg/24 hr patch weekly 0.0375 mg transdermal MO Label Comments: Apply 1 Patch as directed one time a week. Gvoke HypoPen 2-Pack 1 mg/0.2 mL auto-injector 1 mg SUBCUT DAILY PRN PRN (Reason: Hypoglycemia) Label Comments: Inject 1 mg subcutaneously as needed. Referrals / Follow Up: Kevin Stauffer MD [Primary Care Provider] - Disposition Disposition (needs filled in before D/C Order can be placed): Acute Care Hospital Charges/Coding Visit Charges Inpatient E&M: 80647 Disch Hosp
== END 2022-08-14 17:45 | disposition short-term general hospital (02) | DRG 251 ==
LOC: ED 15:21 → MS3 18:14
PROVIDERS: Admitting Provider Internal Medicine; Emergency Provider Emergency Medicine; PCP Family Medicine; Visit Provider Internal Medicine
DX: R10.13 Epigastric pain (principal); E27.1 Primary adrenocortical insufficiency; E87.20 Acidosis, unspecified; E11.9 Type 2 diabetes mellitus without complications; G40.109 Localization-related (focal) (partial) symptomatic epilepsy and epileptic syndromes with simple partial seizures, not intractable, without status epilepticus; M06.9 Rheumatoid arthritis, unspecified; K21.9 Gastro-esophageal reflux disease without esophagitis; J45.20 Mild intermittent asthma, uncomplicated; G43.909 Migraine, unspecified, not intractable, without status migrainosus; E87.6 Hypokalemia; F41.9 Anxiety disorder, unspecified; E89.0 Postprocedural hypothyroidism; R11.2 Nausea with vomiting, unspecified; F32.A Depression, unspecified; Z79.84 Long term (current) use of oral hypoglycemic drugs; Z79.01 Long term (current) use of anticoagulants; Z79.52 Long term (current) use of systemic steroids; Z79.890 Hormone replacement therapy; Z79.899 Other long term (current) drug therapy; Z87.891 Personal history of nicotine dependence; Z90.710 Acquired absence of both cervix and uterus
CPT/HCPCS: 36415; 74174; 80048; 80076; 81001; 82533; 82962; 83605; 83690; 83735; 84100; 84439; 84443; 85025; 97802; 99285; J7030; J7120; Q9967; A4216; J2405

== ENCOUNTER 2022-09-05 11:53 | Emergency (ER) | payer MEDICAID, SELFPAY ==
[2022-09-05 11:54] VITALS: BP 122/77; PULSE 119; RESP 14; TEMP 36.3; O2SAT 99; BMI 28.1
[2022-09-05 13:14] LABS: Bacteria 0 SEEN /hpf (None Seen); Mucous, Urine 0 SEEN /hpf (<or=2+); White Blood Cells 0 SEEN /hpf (0-5)
[2022-09-05 13:25] LABS: Color, Urine Yellow (Yellow); Glucose, Dipstick Normal (Normal); Ketone-Dipstick 5 mg/dl (Negative); Leukocyte Esterase-Dipstick Negative /ul (Negative); Nitrite-Dipstick Negative (Negative); Occult Blood-Urine 150 /ul (Negative); Protein-Dipstick 15 mg/dl (Negative); Specific Gravity, Urine 1.015 (1.002-1.030); Urine Bilirubin Dipstick Negative (Negative); Urine Clarity Clear (Clear); Urine Urobilinogen Normal (Normal)
[2022-09-05 13:43] LABS: Red Blood Cells-Urine 10-25 SEEN /hpf (0-5); Squamous Epithelial Cells - UA 0-5 SEEN /hpf (5-10)
[2022-09-05 13:54] VITALS: RESP 16
--- NOTE | 2022-09-05 15:00 | CT_ITS ---
STUDY: CT ABDOMEN AND PELVIS WITHOUT CONTRAST REASON FOR EXAM: Female, 27 years old. Flank pain -- s/p total hysterectomy. Hematuria. History of recent UTI. RADIATION DOSAGE (If Supplied By Facility): CTDIvol = ( 7.44 ) mGy, DLP = ( 381.19 ) mGycm TECHNIQUE: Transaxial images were obtained from the dome of the diaphragm to the symphysis pubis without oral contrast, and without intravenous contrast. Sagittal and coronal images were reconstructed. Individualized dose optimization techniques were used for this CT. COMPARISON: Comparison is made with prior study dated 07/11/2022. FINDINGS: 2 mm calcified granuloma in the peripheral lateral aspect of the The visualized portions of the heart are within normal limits. Normal liver. The patient is status post cholecystectomy. Normal spleen. Normal pancreas. Normal bilateral adrenal glands. Normal right kidney. Normal left kidney. Normal visualized stomach. Surgical anastomosis seen in the distal ileum. Normal colon. The appendix is visualized and appears normal. There is scattered atherosclerotic calcification of the abdominal aorta, without a demonstrated aneurysm. Normal inferior vena cava. There is borderline retroperitoneal lymphadenopathy with enlarged nodes no greater than 10mm in the short axis diameter. Normal urinary bladder. Normal abdominal wall. Normal osseous structures. CT/Abdomen/Pelvis without Cont IMPRESSION: No acute abnormality is seen. Electronically Signed: Lonnie Kim MD at 15:41 EST ,
[2022-09-05] MEDS: Ondansetron 4 MG/2 ML Vial IV (15:12)
[2022-09-05] MEDS: Morphine 4 MG/ML Syringe IV (15:12)
[2022-09-05] MEDS: Ketorolac 15 MG/ML Vial IV (15:17)
[2022-09-05 15:19] LABS: Absolute Neutrophil Count 3.7 X10^3/uL (2.0-7.7); Basophil# 0.03 X10^3/uL; Basophil% 0.4 % (0-1); Eosinophil# 0.04 X10^3/uL; Eosinophils% 0.6 % (0-5); Hematocrit 34.4 % (37-47); Hemoglobin 11.3 g/dL (12.0-15.0); Mean Corp Hgb Conc 32.8 g/dL (32-36); Mean Corpuscular Volume 82.3 fL (81-99); Mean Platelet Vol. 9.7 fl (6.2-12.0); Monocyte% 10.3 % (0-10); NRBC Flagged by Analyzer 0 % (0-5); Neutrophil # 3.68 X10^3/uL (2.7-7.7); Neutrophil % 54.4 % (47-70); Platelet Count 327 K/mm3 (150-450); RBC Distribution Width CV 14.5 % (11.6-14.6); RBC Distribution Width SD 43.8 fl (35.1-43.9); Red Blood Count 4.18 M/mm3 (4.2-5.4); White Blood Count 6.8 K/mm3 (4.4-11.0)
--- NOTE | 2022-09-05 15:24 | EDS_ITS ---
HPI History of Present Illness Chief Complaint: Flank Pain Narrative Narrative: Patient presents with right flank pain and hematuria that started today. No fevers or chills. No cough or congestion. She does have some right lower abdominal pain. She does have a history of kidney stones. She also has a history of multiple UTIs. [facility] Medical History Abnormal uterine bleeding (AUB) Addisonian crisis Addisons disease Adenomyosis Anxiety and depression Asthma Cardiology follow-up encounter Chest pain Chronic female pelvic pain Diabetes Difficulty swallowing Dysphagia Easy bruising Endometriosis determined by laparoscopy Former smoker Gastric reflux Gastroparesis Graves disease History of diverticulitis History of echocardiogram History of IBS History of left heart catheterization History of steroid therapy History of stress test History of ulceration Low iron Migraine Mild intermittent asthma Restless legs Seizures Shortness of breath on exertion Wears glasses Home Medications albuterol sulfate 90 mcg/actuation aerosol inhaler 1 - 2 puff inhalation Q4H PRN PRN Sob &/Or Wheezing 08/04/20 [History Last Taken Unknown] nitroglycerin 0.3 mg sublingual tablet 0.3 mg sublingual Q5M PRN cp 12/11/20 [History Last Taken Unknown] fremanezumab-vfrm 225 mg/1.5 mL subcutaneous auto-injector (Ajovy) 225 mg subcut QMONTH MIGRAINES 09/20/21 [History Last Taken 07/12/22] ondansetron 4 mg disintegrating tablet 4 mg PO Q8H PRN nausea and vomiting #10 tabs 09/29/21 [Rx Last Taken 2 Days Ago ~08/07/22] sucralfate 100 mg/mL oral suspension (Carafate) 10 ml PO TID GERD 11/05/21 [History Last Taken Unknown] lorazepam 1 mg tablet (Ativan) 1 mg PO TID PRN anxiety #12 tabs 12/02/21 [Rx Last Taken 08/08/22] esomeprazole magnesium 40 mg capsule,delayed release (Nexium) 40 mg PO DAILY GERD 12/19/21 [History Last Taken 08/08/22] acarbose 25 mg tablet 25 mg PO TID sugar 08/09/22 [History Last Taken 08/08/22] albuterol sulfate 90 mcg/actuation aerosol inhaler (Ventolin HFA) 2 inh inhalation Q4H PRN sob 08/09/22 [History Last Taken Unknown] buspirone 5 mg tablet 5 mg PO TID ANXIETY 08/09/22 [History Last Taken 08/08/22] divalproex 250 mg tablet,delayed release 250 mg PO UD SEIZURE 08/09/22 [History Last Taken 08/08/22] eletriptan 40 mg tablet 40 mg PO DAILY migraines 08/09/22 [History Last Taken 2 Days Ago ~08/07/22] estradiol 0.0375 mg/24 hr weekly transdermal patch 0.0375 mg transdermal MO HORMONES 08/09/22 [History Last Taken 08/01/22] fludrocortisone 0.1 mg tablet 0.1 mg PO DAILY ADDISONS 08/09/22 [History Last Taken 08/08/22] fluoxetine 40 mg capsule 40 mg PO DAILY ANXIETY 08/09/22 [History Last Taken 08/08/22] glucagon 1 mg/0.2 mL subcutaneous auto-injector (GvAmerican Well HypoPen 2-Pack) 1 mg subcut DAILY PRN PRN Hypoglycemia 08/09/22 [History Last Taken Unknown] hydrocortisone sod succinate 100 mg solution for injection (Solu-Cortef) 5 - 15 mg IM TID ADDISONS 08/09/22 [History Last Taken 08/09/22] hydroxychloroquine 200 mg tablet 200 mg PO BID ARTHRITIS 08/09/22 [History Last Taken 08/08/22] levothyroxine 137 mcg tablet 137 mcg PO DAILY thyroid 08/09/22 [History Last Taken 08/08/22] tizanidine 4 mg tablet 4 mg PO Q8H PRN Spasms 08/09/22 [History Last Taken 2 Days Ago ~08/07/22] trazodone 100 mg tablet 100 mg PO QHS SLEEP 08/09/22 [History Last Taken 08/07/22] metformin 500 mg tablet 500 mg PO DAILY 09/05/22 [History Last Taken Unknown] naproxen 500 mg tablet (Naprosyn) 500 mg PO BID #20 tabs 09/05/22 [Rx Last Taken Unknown] sulfamethoxazole 800 mg-trimethoprim 160 mg tablet (Bactrim DS) 1 tab PO BID #14 tabs 09/05/22 [Rx Last Taken Unknown] Allergy/AdvReac Type Severity Reaction Status Date / Time acetaminophen Allergy Anaphylaxis Verified 09/05/22 11:58 [From Excedrin Migraine] aspirin Allergy Anaphylaxis Verified 09/05/22 11:58 [From Excedrin Migraine] azithromycin Allergy Anaphylaxis Verified 09/05/22 11:58 [From Zithromax Z-Ruiz] bacitracin Allergy Swelling Verified 09/05/22 11:58 [From Neosporin ([id number])] bacitracin zinc Allergy Swelling Verified 09/05/22 11:58 [From Neosporin ([id number])] caffeine Allergy Anaphylaxis Verified 09/05/22 11:58 [From Excedrin Migraine] latex Allergy Rash Verified 09/05/22 11:58 neomycin sulfate Allergy Swelling Verified 09/05/22 11:58 [From Neosporin ([id number])] polymyxin B Allergy Swelling Verified 09/05/22 11:58 [From Neosporin ([id number])] Family History Uncle Diabetes Cancer lung Father Diabetes Grandfather CVA (cerebral vascular accident) Cancer lung, unsure additional type Uncle Cancer brain Grandmother Cancer lung and unsure additional type Surgical History History of appendectomy History of section History of laparoscopic-assisted vaginal hysterectomy History of laparoscopy History of left salpingo-oophorectomy History of thyroidectomy History of tubal ligation History of wisdom tooth extraction Hx laparoscopic cholecystectomy Social History Smoking Status: Former smoker ROS ROS ED ROS Narrative Past medical history: Reviewed, includes multiple UTIs, Davonte's disease, gastroparesis, Graves' disease, chronic pelvic pain status post total hysterectomy. Medications: Reviewed Social history: Noncontributory Review of systems: All systems negative except as indicated General: No fever Eyes: No visual changes ENT: No upper airway congestion, normal voice Neck: No neck pain Cardiovascular: No chest pain Respiratory: No shortness of breath or cough Gastrointestinal: As in HPI Genitourinary: As in HPI Musculoskeletal: Denies myalgias no difficulty with ambulation Skin: No rash Neurological: No memory loss, confusion or any focal weakness Psych: No recent behavioral changes Hematologic: No easy bleeding or easy bruising EXAM Physical Exam Narrative Exam Narrative: Physical exam General: Patient appears somewhat uncomfortable Head: Normocephalic, Atraumatic Eyes: Conjunctiva not pale ENT: Moist mucous membranes Neck: Supple, Nontender, No lymphadenopathy Cardiovascular: Regular rate, Regular rhythm Respiratory: No distress, CTA bilaterally Abdomen: Soft, minimal right-sided abdominal pain Back: Nontender, Normal Inspection. Right CVA tenderness. Extremities: Nontender, No edema Skin: Normal color, No rash Neurological: Alert, Normal Strength, Normal Sensation Psychological: Normal affect Const Vital Signs: 09/05/22 11:54 09/05/22 13:54 09/05/22 14:44 Temperature 97.4 F L Temperature Source Temporal Pulse Rate 119 H Respiratory Rate 14 16 Respiratory Effort Normal Non-Labored Respiratory Pattern Normal Blood Pressure 122/77 H Blood Pressure Mean 92 Pulse Ox 99 Oxygen Delivery Method Room Air MDM MDM MDM Narrative Medical decision making narrative: Patient is a normal work-up, she may have hemorrhagic cystitis but otherwise she has a normal work-up without kidney stones. I will discharge her with antibiotics and analgesics. Lab Data Labs: Laboratory Results - last 24 hr 09/05/22 09/05/22 09/05/22 13:03 15:05 15:05 WBC 6.8 RBC 4.18 L Hgb 11.3 L Hct 34.4 L MCV 82.3 MCH 27.0 MCHC 32.8 RDW Std Deviation 43.8 RDW Coeff of Renetta 14.5 Plt Count 327 MPV 9.7 Immature Gran % (Auto) 0.300 Neut % (Auto) 54.4 Lymph % (Auto) 34.0 Clay % (Auto) 10.3 H Eos % (Auto) 0.6 Baso % (Auto) 0.4 Absolute Neuts (auto) 3.7 Absolute Lymphs (auto) 2.30 Nucleated RBC % 0 Sodium 139 Potassium 3.7 Chloride 102 Carbon Dioxide 27.0 Anion Gap 10 BUN 11 Creatinine 0.76 Estim Creat Clear Calc 98.28 Est GFR (MDRD) Af Amer 115 Est GFR (MDRD) Non-Af 95 BUN/Creatinine Ratio 14.4 Glucose 80 Calcium 9.0 Total Bilirubin 0.60 AST 10 L ALT 23 Alkaline Phosphatase 52 Total Protein 7.8 Albumin 3.5 Globulin 4.3 H Albumin/Globulin Ratio 0.8 L Urine Color Yellow Urine Clarity Clear Urine pH 7.0 Ur Specific [place] 1.015 Urine Protein 15 H Urine Glucose (UA) Normal Urine Ketones 5 H Urine Occult Blood 150 H Urine Nitrite Negative Urine Bilirubin Negative Urine Urobilinogen Normal Ur Leukocyte Esterase Negative Urine RBC 10-25 SEEN Urine WBC 0 SEEN Ur Squamous Epith Cells 0-5 SEEN Urine Bacteria 0 SEEN Urine Mucus 0 SEEN Radiography Diagnostic Testing: Clinical Impression(s) from Imaging Studies Abdomen/Pelvis CT 09/05/22 15:00 IMPRESSION: No acute abnormality is seen. Electronically Signed: Lonnie Kim MD at 15:41 EST , Discharge Plan Triage Chief Complaint: Flank Pain ED Provider: Migel Osei Dx/Rx/DC Orders Clinical Impression: Acute flank pain, Hematuria Instructions: ED Hematuria Prescriptions: New sulfamethoxazole-trimethoprim [Bactrim DS] 800-160 mg tablet 1 tab PO BID Qty: 14 0RF naproxen [Naprosyn] 500 mg tablet 500 mg PO BID Qty: 20 0RF No Action nitroglycerin 0.3 mg tablet, sublingual 0.3 mg sublingual Q5M PRN (Reason: cp) Rx Instructions: do not exceed 3 doses per episode albuterol sulfate 1 INHALER inhaler 1 - 2 puff INHALATION Q4H PRN PRN (Reason: Sob &/Or Wheezing) Ajovy Autoinjector 225 mg/1.5 mL Auto-Injector 225 mg SUBCUT QMONTH ondansetron 4 mg tablet,disintegrating 4 mg PO Q8H PRN (Reason: nausea and vomiting) Qty: 10 0RF sucralfate [Carafate] 100 mg/mL suspension 10 ml PO TID Rx Instructions: Take one hour prior to meals on an empty stomach. lorazepam [Ativan] 1 mg tablet 1 mg PO TID PRN (Reason: anxiety) Qty: 12 0RF esomeprazole magnesium [Nexium] 40 mg Capsule,Delayed Release(Dr/Ec) 40 mg PO DAILY Solu-Cortef 100 mg recon soln 5 - 15 mg IM TID fluoxetine 40 mg capsule 40 mg PO DAILY Label Comments: Take 1 capsule by mouth once daily. buspirone 5 mg tablet 5 mg PO TID Label Comments: TAKE 1 TABLET BY MOUTH THREE TIMES DAILY levothyroxine 137 mcg tablet 137 mcg PO DAILY Label Comments: Take 1 tablet by mouth once daily. divalproex 250 mg tablet,delayed release (DR/EC) 250 mg PO UD Label Comments: Take 1 tablet by mouth every morning AND TAKE 2 tablets every evening. tizanidine 4 mg tablet 4 mg PO Q8H PRN (Reason: Spasms) Label Comments: TAKE 1 TABLET BY MOUTH EVERY 8 HOURS NEEDED trazodone 100 mg tablet 100 mg PO QHS Label Comments: Take 1 tablet by mouth daily at bedtime. hydroxychloroquine 200 mg tablet 200 mg PO BID Label Comments: Take 1 tablet by mouth twice daily. albuterol sulfate [Ventolin HFA] 90 mcg/actuation HFA aerosol inhaler 2 inh INHALATION Q4H PRN (Reason: sob) Label Comments: Inhale 2 Puffs as instructed every 4 hours as needed. fludrocortisone 0.1 mg tablet 0.1 mg PO DAILY Label Comments: TAKE 1 TABLET BY MOUTH EVERY DAY acarbose 25 mg tablet 25 mg PO TID Label Comments: TAKE 1 TABLET THREE TIMES DAILY eletriptan 40 mg tablet 40 mg PO DAILY Label Comments: Take 1 tablet at the onset of migraine. Repeat 1 dose in 2 hours, if needed. estradiol 0.0375 mg/24 hr patch weekly 0.0375 mg transdermal MO Label Comments: Apply 1 Patch as directed one time a week. Gvoke HypoPen 2-Pack 1 mg/0.2 mL auto-injector 1 mg SUBCUT DAILY PRN PRN (Reason: Hypoglycemia) Label Comments: Inject 1 mg subcutaneously as needed. metformin 500 mg Tablet 500 mg PO DAILY Primary Care Provider: Kevin Stauffer Referrals: Kevin Stauffer MD [Primary Care Provider] - 3-5 Days Disposition Disposition: Home, Self Care
[2022-09-05 15:31] LABS: ALB/GLOB Ratio 0.8 RATIO (0.9-2.4); AST(SGOT) 10 U/L (15-37); Alanine Aminotransfer ALT/SGPT 23 U/L (13-56); Albumin, Serum 3.5 g/dL (3.2-5.0); Alkaline Phosphatase 52 U/L (45-117); Anion Gap 10 (5-15); BUN 11 mg/dL (7-18); BUN/Creat Ratio 14.4 RATIO (10-20); Chloride 102 mmol/L (98-107); Creatinine, Serum 0.76 mg/dL (0.55-1.02); EST Glomerular Filtration Rate 95 mL/min (>60); Est Glom Filt Rate - Afr Amer 115 mL/min (>60); Estimated Creatinine Clearance 98.28 ml/min; Globulin 4.3 g/dL (2.2-4.2); Glucose 80 mg/dL (74-106); Potassium 3.7 mmol/L (3.5-5.1); Protein, Total 7.8 g/dL (6.4-8.2); Sodium Level 139 mmol/L (136-145)
[2022-09-05] MEDS: oxyCODONE 5 MG Tablet PO (16:58)
[2022-09-05 17:02] VITALS: BP 120/70; PULSE 79; RESP 18; O2SAT 100
== END 2022-09-05 17:03 | disposition home or self-care (01) ==
PROVIDERS: Emergency Provider Emergency Medicine; PCP Family Medicine; Visit Provider Emergency Medicine
DX: R10.9 Unspecified abdominal pain (principal); E11.43 Type 2 diabetes mellitus with diabetic autonomic (poly)neuropathy; R31.9 Hematuria, unspecified; F41.9 Anxiety disorder, unspecified; F32.A Depression, unspecified; Z87.891 Personal history of nicotine dependence; Z79.899 Other long term (current) drug therapy; Z79.84 Long term (current) use of oral hypoglycemic drugs
CPT/HCPCS: 74176; 80053; 81001; 85025; 96361; 96374; 96375; 99285; J7030; A4216; J2405

== ENCOUNTER 2022-09-06 21:31 | Emergency (ER) | payer MEDICAID, SELFPAY ==
[2022-09-06 21:32] VITALS: BP 122/85; PULSE 95; RESP 15; TEMP 36.6; O2SAT 98; BMI 29.7
--- NOTE | 2022-09-06 21:49 | EX.ED.DYSGE1 ---
HPI History of Present Illness Chief Complaint: Complaint Detail of Chief Complaint: Urinary retention Informant: patient Narrative Narrative: Patient presents to the emergency department complaint of not being able to urinate. Patient states that she last urinated on her own yesterday morning. Patient was seen in the emergency department yesterday for flank pain and had a work-up including lab work and urinalysis and a CT scan which were essentially unremarkable. Patient followed up with her urologist today who had to do a straight cath and they got over 500 cc of urine at the time. Patient was told that she would need to return to their office if she could not urinate. Patient apparently had one of her bladder medications discontinued today. Patient complains of sensation of feeling like she needs to urinate but cannot. She complains of some pain in her back. Patient is not had a fever. She had no vomiting or diarrhea. [facility] Medical History Abnormal uterine bleeding (AUB) Addisonian crisis Addisons disease Adenomyosis Anxiety and depression Asthma Cardiology follow-up encounter Chest pain Chronic female pelvic pain Diabetes Difficulty swallowing Dysphagia Easy bruising Endometriosis determined by laparoscopy Former smoker Gastric reflux Gastroparesis Graves disease History of diverticulitis History of echocardiogram History of IBS History of left heart catheterization History of steroid therapy History of stress test History of ulceration Low iron Migraine Mild intermittent asthma Restless legs Seizures Shortness of breath on exertion Wears glasses Home Medications albuterol sulfate 90 mcg/actuation aerosol inhaler 1 - 2 puff inhalation Q4H PRN PRN Sob &/Or Wheezing 08/04/20 [History Last Taken Unknown] nitroglycerin 0.3 mg sublingual tablet 0.3 mg sublingual Q5M PRN cp 12/11/20 [History Last Taken Unknown] fremanezumab-vfrm 225 mg/1.5 mL subcutaneous auto-injector (Ajovy) 225 mg subcut QMONTH MIGRAINES 09/20/21 [History Last Taken 07/12/22] ondansetron 4 mg disintegrating tablet 4 mg PO Q8H PRN nausea and vomiting #10 tabs 09/29/21 [Rx Last Taken 2 Days Ago ~08/07/22] sucralfate 100 mg/mL oral suspension (Carafate) 10 ml PO TID GERD 11/05/21 [History Last Taken Unknown] lorazepam 1 mg tablet (Ativan) 1 mg PO TID PRN anxiety #12 tabs 12/02/21 [Rx Last Taken 08/08/22] esomeprazole magnesium 40 mg capsule,delayed release (Nexium) 40 mg PO DAILY GERD 12/19/21 [History Last Taken 08/08/22] acarbose 25 mg tablet 25 mg PO TID sugar 08/09/22 [History Last Taken 08/08/22] albuterol sulfate 90 mcg/actuation aerosol inhaler (Ventolin HFA) 2 inh inhalation Q4H PRN sob 08/09/22 [History Last Taken Unknown] buspirone 5 mg tablet 5 mg PO TID ANXIETY 08/09/22 [History Last Taken 08/08/22] divalproex 250 mg tablet,delayed release 250 mg PO UD SEIZURE 08/09/22 [History Last Taken 08/08/22] eletriptan 40 mg tablet 40 mg PO DAILY migraines 08/09/22 [History Last Taken 2 Days Ago ~08/07/22] estradiol 0.0375 mg/24 hr weekly transdermal patch 0.0375 mg transdermal MO HORMONES 08/09/22 [History Last Taken 08/01/22] fludrocortisone 0.1 mg tablet 0.1 mg PO DAILY ADDISONS 08/09/22 [History Last Taken 08/08/22] fluoxetine 40 mg capsule 40 mg PO DAILY ANXIETY 08/09/22 [History Last Taken 08/08/22] glucagon 1 mg/0.2 mL subcutaneous auto-injector (Gvoke HypoPen 2-Pack) 1 mg subcut DAILY PRN PRN Hypoglycemia 08/09/22 [History Last Taken Unknown] hydrocortisone sod succinate 100 mg solution for injection (Solu-Cortef) 5 - 15 mg IM TID ADDISONS 08/09/22 [History Last Taken 08/09/22] hydroxychloroquine 200 mg tablet 200 mg PO BID ARTHRITIS 08/09/22 [History Last Taken 08/08/22] levothyroxine 137 mcg tablet 137 mcg PO DAILY thyroid 08/09/22 [History Last Taken 08/08/22] tizanidine 4 mg tablet 4 mg PO Q8H PRN Spasms 08/09/22 [History Last Taken 2 Days Ago ~08/07/22] trazodone 100 mg tablet 100 mg PO QHS SLEEP 08/09/22 [History Last Taken 08/07/22] metformin 500 mg tablet 500 mg PO DAILY 09/05/22 [History Last Taken Unknown] naproxen 500 mg tablet (Naprosyn) 500 mg PO BID #20 tabs 09/05/22 [Rx Last Taken Unknown] sulfamethoxazole 800 mg-trimethoprim 160 mg tablet (Bactrim DS) 1 tab PO BID #14 tabs 09/05/22 [Rx Last Taken Unknown] phenazopyridine 200 mg tablet (Pyridium) 200 mg PO TID 6 doses #6 tabs 09/06/22 [Rx Last Taken Unknown] Allergy/AdvReac Type Severity Reaction Status Date / Time acetaminophen Allergy Anaphylaxis Verified 09/06/22 21:36 [From Excedrin Migraine] aspirin Allergy Anaphylaxis Verified 09/06/22 21:36 [From Excedrin Migraine] azithromycin Allergy Anaphylaxis Verified 09/06/22 21:36 [From Zithromax Z-Ruiz] bacitracin Allergy Swelling Verified 09/06/22 21:36 [From Neosporin ([id number])] bacitracin zinc Allergy Swelling Verified 09/06/22 21:36 [From Neosporin ([id number])] caffeine Allergy Anaphylaxis Verified 09/06/22 21:36 [From Excedrin Migraine] latex Allergy Rash Verified 09/06/22 21:36 neomycin sulfate Allergy Swelling Verified 09/06/22 21:36 [From Neosporin ([id number])] polymyxin B Allergy Swelling Verified 09/06/22 21:36 [From Neosporin ([id number])] Family History Uncle Diabetes Cancer lung Father Diabetes Grandfather CVA (cerebral vascular accident) Cancer lung, unsure additional type Uncle Cancer brain Grandmother Cancer lung and unsure additional type Surgical History History of appendectomy History of section History of laparoscopic-assisted vaginal hysterectomy History of laparoscopy History of left salpingo-oophorectomy History of thyroidectomy History of tubal ligation History of wisdom tooth extraction Hx laparoscopic cholecystectomy Social History Smoking Status: Former smoker ROS ROS ED Review of Systems ROS Unobtainable: other Constitutional Constitutional ED: Reports lethargy; Denies chills, fever(s), sweats or weight loss Eyes Eyes: Denies blurry vision, change in vision or diplopia ENT ENT ED: Denies rhinorrhea or sore throat Cardiovascular Cardiovascular: Denies chest pain, orthopnea or racing heartbeat Respiratory/Chest Respiratory/Chest: Denies cough, dyspnea, dyspnea on exertion, orthopnea or sputum Gastrointestinal Gastrointestinal: Reports abdominal pain; Denies diarrhea, nausea or vomiting Genitourinary Genitourinary ED: Denies dysuria, hematuria or urinary frequency Musculoskeletal Musculoskeletal: Reports back pain; Denies arthralgias, myalgias or neck pain Integumentary Denies abscess, Abrasions or rash Neurologic Neurologic: Denies headache(s) or weakness Psychiatric Psychiatric: Denies anxiety, depression or suicidal thoughts Endocrine Endocrinology: Denies polydipsia, polyphagia or polyuria Hematologic/Lymphatic Hematologic/Lymphatic: Denies easy bleeding, easy bruising or lymphadenopathy Allergic/Immunologic Allergic/Immunologic ED: Denies mouth swelling, tongue swelling or urticaria EXAM Physical Exam Const Vital Signs: 09/06/22 21:32 Temperature 97.8 F Temperature Source Temporal Pulse Rate 95 Respiratory Rate 15 Blood Pressure 122/85 H Blood Pressure Mean 97 Pulse Ox 98 Oxygen Delivery Method Room Air Positive well nourished and well developed General Appearance ED: well developed and NAD HEENT Reports TM's clear and moist mucous membranes normocephalic and atraumatic; Negative for trauma or tenderness Tympanic Membrane ED: Yes TM's clear Eyes PERRL and EOMs intact bilaterally General Eye ED: Negative for pale conjunctiva or scleral icterus Neck no lymphadenopathy, supple and no JVD General: Negative for tenderness Chest Wall inspection of chest normal and palpation of chest normal Chest: Negative for tenderness Resp normal respiratory effort and clear to auscultation bilaterally Effort and Inspection: Negative for respiratory distress or pain with movement Auscultation: Negative for rhonchi, wheezes or diminished lung sounds Cardio regular rate, regular rhythm, S1 normal heart sound, S2 normal heart sound and no murmurs Peripheral Pulses: pulses 2+ throughout GI normal to inspection, nondistended, normoactive bowel sounds, soft to palpation, non-distended and no masses GI Narrative: Patient was mild tenderness over the suprapubic region. There is no rebound, rigidity, or peritoneal signs. No masses palpated. Back/Spine no CVA tenderness and no thoracic nor lumbar tenderness Extremity normal to inspection General Extremety ED: Negative for edema General Extremity: Negative for edema Neuro oriented x3, CN's II-XII intact bilaterally, no sensory deficits noted and gait normal Sensorium / Orientation: awake, alert, oriented to person, oriented to place and oriented to time Motor Exam: strength 5/5 throughout and strength abnormal Psych mental status grossly normal Skin no rashes or lesions noted and no wounds MDM MDM MDM Narrative Medical decision making narrative: Patient had a Worley catheter placed in we obtained 375 cc of urine and the urine continues to drain from the bladder. The urine appeared clear. At this point she will be sent home with a leg bag and will be started on Pyridium. Patient advised to follow-up with her urologist tomorrow. Discharge Plan Triage Chief Complaint: Complaint ED Provider: Herberth Spear Dx/Rx/DC Orders Clinical Impression: Acute urinary retention Instructions: ED Urinary Retention, Female Prescriptions: New phenazopyridine [Pyridium] 200 mg tablet 200 mg PO TID Qty: 6 0RF No Action nitroglycerin 0.3 mg tablet, sublingual 0.3 mg sublingual Q5M PRN (Reason: cp) Rx Instructions: do not exceed 3 doses per episode albuterol sulfate 1 INHALER inhaler 1 - 2 puff INHALATION Q4H PRN PRN (Reason: Sob &/Or Wheezing) Ajovy Autoinjector 225 mg/1.5 mL Auto-Injector 225 mg SUBCUT QMONTH ondansetron 4 mg tablet,disintegrating 4 mg PO Q8H PRN (Reason: nausea and vomiting) Qty: 10 0RF sucralfate [Carafate] 100 mg/mL suspension 10 ml PO TID Rx Instructions: Take one hour prior to meals on an empty stomach. lorazepam [Ativan] 1 mg tablet 1 mg PO TID PRN (Reason: anxiety) Qty: 12 0RF esomeprazole magnesium [Nexium] 40 mg Capsule,Delayed Release(Dr/Ec) 40 mg PO DAILY Solu-Cortef 100 mg recon soln 5 - 15 mg IM TID fluoxetine 40 mg capsule 40 mg PO DAILY Label Comments: Take 1 capsule by mouth once daily. buspirone 5 mg tablet 5 mg PO TID Label Comments: TAKE 1 TABLET BY MOUTH THREE TIMES DAILY levothyroxine 137 mcg tablet 137 mcg PO DAILY Label Comments: Take 1 tablet by mouth once daily. divalproex 250 mg tablet,delayed release (DR/EC) 250 mg PO UD Label Comments: Take 1 tablet by mouth every morning AND TAKE 2 tablets every evening. tizanidine 4 mg tablet 4 mg PO Q8H PRN (Reason: Spasms) Label Comments: TAKE 1 TABLET BY MOUTH EVERY 8 HOURS NEEDED trazodone 100 mg tablet 100 mg PO QHS Label Comments: Take 1 tablet by mouth daily at bedtime. hydroxychloroquine 200 mg tablet 200 mg PO BID Label Comments: Take 1 tablet by mouth twice daily. albuterol sulfate [Ventolin HFA] 90 mcg/actuation HFA aerosol inhaler 2 inh INHALATION Q4H PRN (Reason: sob) Label Comments: Inhale 2 Puffs as instructed every 4 hours as needed. fludrocortisone 0.1 mg tablet 0.1 mg PO DAILY Label Comments: TAKE 1 TABLET BY MOUTH EVERY DAY acarbose 25 mg tablet 25 mg PO TID Label Comments: TAKE 1 TABLET THREE TIMES DAILY eletriptan 40 mg tablet 40 mg PO DAILY Label Comments: Take 1 tablet at the onset of migraine. Repeat 1 dose in 2 hours, if needed. estradiol 0.0375 mg/24 hr patch weekly 0.0375 mg transdermal MO Label Comments: Apply 1 Patch as directed one time a week. Gvoke HypoPen 2-Pack 1 mg/0.2 mL auto-injector 1 mg SUBCUT DAILY PRN PRN (Reason: Hypoglycemia) Label Comments: Inject 1 mg subcutaneously as needed. metformin 500 mg Tablet 500 mg PO DAILY sulfamethoxazole-trimethoprim [Bactrim DS] 800-160 mg tablet 1 tab PO BID Qty: 14 0RF naproxen [Naprosyn] 500 mg tablet 500 mg PO BID Qty: 20 0RF Primary Care Provider: Kevin Stauffer Referrals: Kevin Stauffer MD [Primary Care Provider] - Activity Restrictions/Additional Instructions: Follow-up with your urologist tomorrow Disposition Disposition: Home, Self Care
[2022-09-06] MEDS: Phenazopyridine 95 MG Tablet 190 MG PO (22:33)
== END 2022-09-06 22:46 | disposition home or self-care (01) ==
PROVIDERS: Emergency Provider Emergency Medicine; PCP Family Medicine; Visit Provider Emergency Medicine
DX: R33.9 Retention of urine, unspecified (principal); Z87.891 Personal history of nicotine dependence
CPT/HCPCS: 51702; 99284

== ENCOUNTER 2022-09-08 17:38 | Emergency (ER) | payer MEDICAID, SELFPAY ==
[2022-09-08 17:39] VITALS: BP 108/77; PULSE 105; RESP 14; TEMP 37.1; O2SAT 99; BMI 28.1
--- NOTE | 2022-09-08 18:22 | EDS_ITS ---
HPI HPI - Female History of Present Illness Chief Complaint: Worley C/O Narrative Narrative: 27-year-old female presents with Worley catheter pain that she has had since its insertion 2 days ago. She states that she saw her urologist at the [facility] [place] because she is had longstanding bladder problems ever since her hysterectomy a year ago. She is had Worley catheters in the past. When she went to see him on Monday, she was in urinary retention and they had to straight catheterize her in the office. She was told that if she could not urinate 4 hours later that she needed to come to the emergency department. She states she came to the emergency department, saw Dr. Garcia, who inserted a Worley catheter because of her continued urinary retention. She states that this was most likely from a medication that was changed on Monday. She had a high dose of an antispasm medication for her bladder which was changed by her urologist. Since Monday she has developed pain in the Worley catheter and she states that she can feel when she is urinating and it feels like razor blades. She is still taking Pyridium. She presents to the emergency department because she would like the Worley catheter removed to see if she can urinate on her own. She denies any fevers or chills. She has occasional nausea but no vomiting and she states that she has having mild bladder pain. [facility] Medical History Abnormal uterine bleeding (AUB) Addisonian crisis Addisons disease Adenomyosis Anxiety and depression Asthma Cardiology follow-up encounter Chest pain Chronic female pelvic pain Diabetes Difficulty swallowing Dysphagia Easy bruising Endometriosis determined by laparoscopy Former smoker Gastric reflux Gastroparesis Graves disease History of diverticulitis History of echocardiogram History of IBS History of left heart catheterization History of steroid therapy History of stress test History of ulceration Low iron Migraine Mild intermittent asthma Restless legs Seizures Shortness of breath on exertion Wears glasses Home Medications albuterol sulfate 90 mcg/actuation aerosol inhaler 1 - 2 puff inhalation Q4H PRN PRN Sob &/Or Wheezing 08/04/20 [History Last Taken Unknown] nitroglycerin 0.3 mg sublingual tablet 0.3 mg sublingual Q5M PRN cp 12/11/20 [History Last Taken Unknown] fremanezumab-vfrm 225 mg/1.5 mL subcutaneous auto-injector (Ajovy) 225 mg subcut QMONTH MIGRAINES 09/20/21 [History Last Taken 07/12/22] ondansetron 4 mg disintegrating tablet 4 mg PO Q8H PRN nausea and vomiting #10 tabs 09/29/21 [Rx Last Taken 2 Days Ago ~08/07/22] sucralfate 100 mg/mL oral suspension (Carafate) 10 ml PO TID GERD 11/05/21 [History Last Taken Unknown] lorazepam 1 mg tablet (Ativan) 1 mg PO TID PRN anxiety #12 tabs 12/02/21 [Rx Last Taken 08/08/22] esomeprazole magnesium 40 mg capsule,delayed release (Nexium) 40 mg PO DAILY GERD 12/19/21 [History Last Taken 08/08/22] acarbose 25 mg tablet 25 mg PO TID sugar 08/09/22 [History Last Taken 08/08/22] albuterol sulfate 90 mcg/actuation aerosol inhaler (Ventolin HFA) 2 inh inhalation Q4H PRN sob 08/09/22 [History Last Taken Unknown] buspirone 5 mg tablet 5 mg PO TID ANXIETY 08/09/22 [History Last Taken 08/08/22] divalproex 250 mg tablet,delayed release 250 mg PO UD SEIZURE 08/09/22 [History Last Taken 08/08/22] eletriptan 40 mg tablet 40 mg PO DAILY migraines 08/09/22 [History Last Taken 2 Days Ago ~08/07/22] estradiol 0.0375 mg/24 hr weekly transdermal patch 0.0375 mg transdermal MO HORMONES 08/09/22 [History Last Taken 08/01/22] fludrocortisone 0.1 mg tablet 0.1 mg PO DAILY ADDISONS 08/09/22 [History Last Taken 08/08/22] fluoxetine 40 mg capsule 40 mg PO DAILY ANXIETY 08/09/22 [History Last Taken 1 ] glucagon 1 mg/0.2 mL subcutaneous auto-injector (Gvoke HypoPen 2-Pack) 1 mg subcut DAILY PRN PRN Hypoglycemia 08/09/22 [History Last Taken Unknown] hydrocortisone sod succinate 100 mg solution for injection (Solu-Cortef) 5 - 15 mg IM TID ADDISONS 08/09/22 [History Last Taken 08/09/22] hydroxychloroquine 200 mg tablet 200 mg PO BID ARTHRITIS 08/09/22 [History Last Taken 08/08/22] levothyroxine 137 mcg tablet 137 mcg PO DAILY thyroid 08/09/22 [History Last Taken 08/08/22] tizanidine 4 mg tablet 4 mg PO Q8H PRN Spasms 08/09/22 [History Last Taken 2 Days Ago ~08/07/22] trazodone 100 mg tablet 100 mg PO QHS SLEEP 08/09/22 [History Last Taken 08/07/22] metformin 500 mg tablet 500 mg PO DAILY 09/05/22 [History Last Taken Unknown] naproxen 500 mg tablet (Naprosyn) 500 mg PO BID #20 tabs 09/05/22 [Rx Last Taken Unknown] sulfamethoxazole 800 mg-trimethoprim 160 mg tablet (Bactrim DS) 1 tab PO BID #14 tabs 09/05/22 [Rx Last Taken Unknown] phenazopyridine 200 mg tablet (Pyridium) 200 mg PO TID 6 doses #6 tabs 09/06/22 [Rx Last Taken Unknown] Allergy/AdvReac Type Severity Reaction Status Date / Time acetaminophen Allergy Anaphylaxis Verified 09/08/22 17:42 [From Excedrin Migraine] aspirin Allergy Anaphylaxis Verified 09/08/22 17:42 [From Excedrin Migraine] azithromycin Allergy Anaphylaxis Verified 09/08/22 17:42 [From Zithromax Z-Ruiz] bacitracin Allergy Swelling Verified 09/08/22 17:42 [From Neosporin ([id number])] bacitracin zinc Allergy Swelling Verified 09/08/22 17:42 [From Neosporin ([id number])] caffeine Allergy Anaphylaxis Verified 09/08/22 17:42 [From Excedrin Migraine] latex Allergy Rash Verified 09/08/22 17:42 neomycin sulfate Allergy Swelling Verified 09/08/22 17:42 [From Neosporin ([id number])] polymyxin B Allergy Swelling Verified 09/08/22 17:42 [From Neosporin ([id number])] Family History Uncle Diabetes Cancer lung Father Diabetes Grandfather CVA (cerebral vascular accident) Cancer lung, unsure additional type Uncle Cancer brain Grandmother Cancer lung and unsure additional type Surgical History History of appendectomy History of section History of laparoscopic-assisted vaginal hysterectomy History of laparoscopy History of left salpingo-oophorectomy History of thyroidectomy History of tubal ligation History of wisdom tooth extraction Hx laparoscopic cholecystectomy Social History Smoking Status: Former smoker ROS ROS ED ROS Narrative Constitutional: No fever, no chills. HEENT: No sore throat. No neck pain. No loss of vision. No rhinorrhea. Cardiovascular: No chest pain. No palpitations. No pedal edema. Respiratory: No cough, no shortness of breath. Abdominal: Suprapubic abdominal pain. No nausea. No vomiting. Genitourinary: No dysuria. Randall urine secondary to Pyridium. Positive pain with urination although she has a Worley catheter in place. Musculoskeletal: No myalgias. No arthralgias. Neurologic: No headaches. No dizziness. No lightheadedness. Skin: No rash. No change in color. Psychiatric: No depression. No anxiety. EXAM Physical Exam Const Vital Signs: 09/08/22 17:39 09/08/22 18:46 Temperature 98.8 F Temperature Source Temporal Pulse Rate 105 H 92 Respiratory Rate 14 17 Blood Pressure 108/77 Blood Pressure Mean 87 Pulse Ox 99 98 Oxygen Delivery Method Room Air MDM MDM MDM Narrative Medical decision making narrative: I had a lengthy discussion with the patient that should her Worley catheter be removed, she may go into urinary retention again. She thinks it was secondary to the medication. She is frustrated because she cannot see her urologist until Monday, approximately 5 days from now. Worley catheter will be removed. She was told to return to the emergency department if she cannot urinate in 4 to 8 hours for Worley catheter reinsertion. Disposition is discharged home in stable condition. Discharge Plan Triage Chief Complaint: Worley C/O ED Provider: Liborio Santo Dx/Rx/DC Orders Clinical Impression: History of urinary retention, Encounter for Worley catheter removal, Worley catheter problem, Dysuria Instructions: Dysuria Prescriptions: No Action nitroglycerin 0.3 mg tablet, sublingual 0.3 mg sublingual Q5M PRN (Reason: cp) Rx Instructions: do not exceed 3 doses per episode albuterol sulfate 1 INHALER inhaler 1 - 2 puff INHALATION Q4H PRN PRN (Reason: Sob &/Or Wheezing) Ajovy Autoinjector 225 mg/1.5 mL Auto-Injector 225 mg SUBCUT QMONTH ondansetron 4 mg tablet,disintegrating 4 mg PO Q8H PRN (Reason: nausea and vomiting) Qty: 10 0RF sucralfate [Carafate] 100 mg/mL suspension 10 ml PO TID Rx Instructions: Take one hour prior to meals on an empty stomach. lorazepam [Ativan] 1 mg tablet 1 mg PO TID PRN (Reason: anxiety) Qty: 12 0RF esomeprazole magnesium [Nexium] 40 mg Capsule,Delayed Release(Dr/Ec) 40 mg PO DAILY Solu-Cortef 100 mg recon soln 5 - 15 mg IM TID fluoxetine 40 mg capsule 40 mg PO DAILY Label Comments: Take 1 capsule by mouth once daily. buspirone 5 mg tablet 5 mg PO TID Label Comments: TAKE 1 TABLET BY MOUTH THREE TIMES DAILY levothyroxine 137 mcg tablet 137 mcg PO DAILY Label Comments: Take 1 tablet by mouth once daily. divalproex 250 mg tablet,delayed release (DR/EC) 250 mg PO UD Label Comments: Take 1 tablet by mouth every morning AND TAKE 2 tablets every evening. tizanidine 4 mg tablet 4 mg PO Q8H PRN (Reason: Spasms) Label Comments: TAKE 1 TABLET BY MOUTH EVERY 8 HOURS NEEDED trazodone 100 mg tablet 100 mg PO QHS Label Comments: Take 1 tablet by mouth daily at bedtime. hydroxychloroquine 200 mg tablet 200 mg PO BID Label Comments: Take 1 tablet by mouth twice daily. albuterol sulfate [Ventolin HFA] 90 mcg/actuation HFA aerosol inhaler 2 inh INHALATION Q4H PRN (Reason: sob) Label Comments: Inhale 2 Puffs as instructed every 4 hours as needed. fludrocortisone 0.1 mg tablet 0.1 mg PO DAILY Label Comments: TAKE 1 TABLET BY MOUTH EVERY DAY acarbose 25 mg tablet 25 mg PO TID Label Comments: TAKE 1 TABLET THREE TIMES DAILY eletriptan 40 mg tablet 40 mg PO DAILY Label Comments: Take 1 tablet at the onset of migraine. Repeat 1 dose in 2 hours, if needed. estradiol 0.0375 mg/24 hr patch weekly 0.0375 mg transdermal MO Label Comments: Apply 1 Patch as directed one time a week. Gvoke HypoPen 2-Pack 1 mg/0.2 mL auto-injector 1 mg SUBCUT DAILY PRN PRN (Reason: Hypoglycemia) Label Comments: Inject 1 mg subcutaneously as needed. metformin 500 mg Tablet 500 mg PO DAILY sulfamethoxazole-trimethoprim [Bactrim DS] 800-160 mg tablet 1 tab PO BID Qty: 14 0RF naproxen [Naprosyn] 500 mg tablet 500 mg PO BID Qty: 20 0RF phenazopyridine [Pyridium] 200 mg tablet 200 mg PO TID Qty: 6 0RF Primary Care Provider: Kevin Stauffer Referrals: Kevin Stauffer MD [Primary Care Provider] - Activity Restrictions/Additional Instructions: Follow-up with your urologist as soon as possible. Return with inability to urinate in 4 to 8 hours. Disposition Disposition: Home, Self Care Discharge Date/Time: 09/08/22 18:50
[2022-09-08 18:46] VITALS: PULSE 92; RESP 17; O2SAT 98
== END 2022-09-08 18:50 | disposition home or self-care (01) ==
PROVIDERS: Emergency Provider Emergency Medicine; PCP Family Medicine; Visit Provider Emergency Medicine
DX: R33.9 Retention of urine, unspecified (principal); T83.9XXA Unspecified complication of genitourinary prosthetic device, implant and graft, initial encounter; R30.0 Dysuria; Z87.891 Personal history of nicotine dependence; X58.XXXA Exposure to other specified factors, initial encounter
CPT/HCPCS: 99282

== ENCOUNTER 2022-09-10 20:38 | Emergency (ER) | payer MEDICAID, SELFPAY ==
[2022-09-10 20:39] VITALS: BP 123/77; PULSE 105; RESP 18; TEMP 36.8; O2SAT 100; BMI 28.3
--- NOTE | 2022-09-10 21:26 | EDS_ITS ---
HPI HPI - Female History of Present Illness Chief Complaint: Complaint Narrative Narrative: 27-year-old female presenting with dysuria and urinary frequency. She is on Pyridium and states she still having the symptoms. On the the patient presented with acute urinary retention and a Worley catheter was placed. She had this in until the and she came back to the emergency room to have it removed because she felt it was burning. She continues to have burning. She is able to void all day yesterday without much difficulty but noticed the burning started about 430 this morning she has had urinary frequency and urgency all day. She switched to follow-up with Dr. Lopez her urologist next week and she supposed to be taught how to self catheterize her self as needed. She has not have any suprapubic pressure. She is not feeling ill. No nausea or vomiting. No abdominal pain. [facility] Medical History Abnormal uterine bleeding (AUB) Addisonian crisis Addisons disease Adenomyosis Anxiety and depression Asthma Cardiology follow-up encounter Chest pain Chronic female pelvic pain Diabetes Difficulty swallowing Dysphagia Easy bruising Endometriosis determined by laparoscopy Former smoker Gastric reflux Gastroparesis Graves disease History of diverticulitis History of echocardiogram History of IBS History of left heart catheterization History of steroid therapy History of stress test History of ulceration Low iron Migraine Mild intermittent asthma Restless legs Seizures Shortness of breath on exertion Wears glasses Home Medications albuterol sulfate 90 mcg/actuation aerosol inhaler 1 - 2 puff inhalation Q4H PRN PRN Sob &/Or Wheezing 08/04/20 [History Last Taken Unknown] nitroglycerin 0.3 mg sublingual tablet 0.3 mg sublingual Q5M PRN cp 12/11/20 [History Last Taken Unknown] fremanezumab-vfrm 225 mg/1.5 mL subcutaneous auto-injector (Ajovy) 225 mg subcut QMONTH MIGRAINES 09/20/21 [History Last Taken 07/12/22] ondansetron 4 mg disintegrating tablet 4 mg PO Q8H PRN nausea and vomiting #10 tabs 09/29/21 [Rx Last Taken 2 Days Ago ~08/07/22] sucralfate 100 mg/mL oral suspension (Carafate) 10 ml PO TID GERD 11/05/21 [History Last Taken Unknown] lorazepam 1 mg tablet (Ativan) 1 mg PO TID PRN anxiety #12 tabs 12/02/21 [Rx Last Taken 08/08/22] esomeprazole magnesium 40 mg capsule,delayed release (Nexium) 40 mg PO DAILY GERD 12/19/21 [History Last Taken 08/08/22] acarbose 25 mg tablet 25 mg PO TID sugar 08/09/22 [History Last Taken 08/08/22] albuterol sulfate 90 mcg/actuation aerosol inhaler (Ventolin HFA) 2 inh inhalation Q4H PRN sob 08/09/22 [History Last Taken Unknown] buspirone 5 mg tablet 5 mg PO TID ANXIETY 08/09/22 [History Last Taken 08/08/22] divalproex 250 mg tablet,delayed release 250 mg PO UD SEIZURE 08/09/22 [History Last Taken 08/08/22] eletriptan 40 mg tablet 40 mg PO DAILY migraines 08/09/22 [History Last Taken 2 Days Ago ~08/07/22] estradiol 0.0375 mg/24 hr weekly transdermal patch 0.0375 mg transdermal [place] HORMONES 08/09/22 [History Last Taken 08/01/22] fludrocortisone 0.1 mg tablet 0.1 mg PO DAILY ADDISONS 08/09/22 [History Last Taken 08/08/22] fluoxetine 40 mg capsule 40 mg PO DAILY ANXIETY 08/09/22 [History Last Taken 08/08/22] glucagon 1 mg/0.2 mL subcutaneous auto-injector (Gvoke HypoPen 2-Pack) 1 mg s ubcut DAILY PRN PRN Hypoglycemia 08/09/22 [History Last Taken Unknown] hydrocortisone sod succinate 100 mg solution for injection (Solu-Cortef) 5 - 15 mg IM TID ADDISONS 08/09/22 [History Last Taken 08/09/22] hydroxychloroquine 200 mg tablet 200 mg PO BID ARTHRITIS 08/09/22 [History Last Taken 08/08/22] levothyroxine 137 mcg tablet 137 mcg PO DAILY thyroid 08/09/22 [History Last Taken 08/08/22] tizanidine 4 mg tablet 4 mg PO Q8H PRN Spasms 08/09/22 [History Last Taken 2 Days Ago ~08/07/22] trazodone 100 mg tablet 100 mg PO QHS SLEEP 08/09/22 [History Last Taken 08/07/22] metformin 500 mg tablet 500 mg PO DAILY 09/05/22 [History Last Taken Unknown] naproxen 500 mg tablet (Naprosyn) 500 mg PO BID #20 tabs 09/05/22 [Rx Last Taken Unknown] sulfamethoxazole 800 mg-trimethoprim 160 mg tablet (Bactrim DS) 1 tab PO BID #14 tabs 09/05/22 [Rx Last Taken Unknown] phenazopyridine 200 mg tablet (Pyridium) 200 mg PO TID 6 doses #6 tabs 09/06/22 [Rx Last Taken Unknown] cephalexin 500 mg capsule 500 mg PO Q12 #14 caps 09/10/22 [Rx Last Taken Unknown] Allergy/AdvReac Type Severity Reaction Status Date / Time acetaminophen Allergy Anaphylaxis Verified 09/10/22 20:42 [From Excedrin Migraine] aspirin Allergy Anaphylaxis Verified 09/10/22 20:42 [From Excedrin Migraine] azithromycin Allergy Anaphylaxis Verified 09/10/22 20:42 [From Zithromax Z-Ruiz] bacitracin Allergy Swelling Verified 09/10/22 20:42 [From Neosporin ([id number])] bacitracin zinc Allergy Swelling Verified 09/10/22 20:42 [From Neosporin ([id number])] caffeine Allergy Anaphylaxis Verified 09/10/22 20:42 [From Excedrin Migraine] latex Allergy Rash Verified 09/10/22 20:42 neomycin sulfate Allergy Swelling Verified 09/10/22 20:42 [From Neosporin ([id number])] polymyxin B Allergy Swelling Verified 09/10/22 20:42 [From Neosporin ([id number])] Family History Uncle Diabetes Cancer lung Father Diabetes Grandfather CVA (cerebral vascular accident) Cancer lung, unsure additional type Uncle Cancer brain Grandmother Cancer lung and unsure additional type Surgical History History of appendectomy History of section History of laparoscopic-assisted vaginal hysterectomy History of laparoscopy History of left salpingo-oophorectomy History of thyroidectomy History of tubal ligation History of wisdom tooth extraction Hx laparoscopic cholecystectomy Social History Smoking Status: Former smoker ROS ROS ED Constitutional Constitutional ED: Denies chills or fever(s) Eyes Eyes: Denies change in vision or diplopia ENT ENT ED: Denies rhinorrhea or sore throat Cardiovascular Cardiovascular: Denies chest pain or palpitations Respiratory/Chest Respiratory/Chest: Denies cough or dyspnea Gastrointestinal Gastrointestinal: Denies abdominal pain, nausea or vomiting Genitourinary Genitourinary ED: Reports dysuria and urinary frequency Musculoskeletal Musculoskeletal: Denies arthralgias or myalgias Integumentary Denies abscess or Abrasions Neurologic Neurologic: Denies headache(s) or paresthesias Psychiatric Psychiatric: Denies anxiety or depression EXAM Physical Exam Const Vital Signs: 09/10/22 20:39 Temperature 98.3 F Temperature Source Temporal Pulse Rate 105 H Respiratory Rate 18 Blood Pressure 123/77 H Blood Pressure Mean 92 Pulse Ox 100 Oxygen Delivery Method Room Air Positive well nourished General Appearance ED: NAD HEENT Reports TM's clear and moist mucous membranes Tympanic Membrane ED: Yes TM's clear Eyes EOMs intact bilaterally Chest Wall inspection of chest normal and palpation of chest normal Resp normal respiratory effort and clear to auscultation bilaterally Cardio regular rate and regular rhythm GI normal to inspection, nondistended, normoactive bowel sounds Back/Spine no CVA tenderness Extremity normal to inspection Neuro oriented x3 and CN's II-XII intact bilaterally Sensorium / Orientation: alert Motor Exam: strength 5/5 throughout Psych mental status grossly normal Skin no rashes or lesions noted MDM MDM MDM Narrative Medical decision making narrative: 27-year-old female presenting with dysuria and urinary frequency. She is voiding although it small amounts. No fevers or chills. No abdominal pain or flank pain. She feels otherwise well. Bladder scan showed 27 cc. Patient was unable to void so I gave her water. We will obtain a urinalysis and hCG. Urinalysis consistent with UTI. She will be treated with Keflex. First dose given in the ER. Urine test negative. She will follow-up with urology. Impression: 1. UTI Lab Data Attestation: I reviewed the patient's lab results. Labs: Laboratory Results - last 24 hr 09/10/22 21:35 Urine Color SEE COMMENT BELOW Urine Clarity Clear Urine pH 5.0 Ur Specific [place] 1.030 Urine Protein 30 H Urine Glucose (UA) Normal Urine Ketones 5 H Urine Occult Blood 150 H Urine Nitrite Positive H Urine Bilirubin 3 H Urine Urobilinogen 4 H Ur Leukocyte Esterase 25 H Urine RBC 5-10 SEEN Urine WBC 10-25 SEEN Ur Squamous Epith Cells 0-5 SEEN Urine Bacteria 1+ Hyaline Casts 0-5 SEEN Urine Mucus 4+ Urine Test Negative Discharge Plan Triage Chief Complaint: Complaint ED Provider: Rodrigo Mace Dx/Rx/DC Orders Instructions: ED Cystitis Female Adult Prescriptions: New cephalexin 500 mg capsule 500 mg PO Q12 Qty: 14 0RF No Action nitroglycerin 0.3 mg tablet, sublingual 0.3 mg sublingual Q5M PRN (Reason: cp) Rx Instructions: do not exceed 3 doses per episode albuterol sulfate 1 INHALER inhaler 1 - 2 puff INHALATION Q4H PRN PRN (Reason: Sob &/Or Wheezing) Ajovy Autoinjector 225 mg/1.5 mL Auto-Injector 225 mg SUBCUT QMONTH ondansetron 4 mg tablet,disintegrating 4 mg PO Q8H PRN (Reason: nausea and vomiting) Qty: 10 0RF sucralfate [Carafate] 100 mg/mL suspension 10 ml PO TID Rx Instructions: Take one hour prior to meals on an empty stomach. lorazepam [Ativan] 1 mg tablet 1 mg PO TID PRN (Reason: anxiety) Qty: 12 0RF esomeprazole magnesium [Nexium] 40 mg Capsule,Delayed Release(Dr/Ec) 40 mg PO DAILY Solu-Cortef 100 mg recon soln 5 - 15 mg IM TID fluoxetine 40 mg capsule 40 mg PO DAILY Label Comments: Take 1 capsule by mouth once daily. buspirone 5 mg tablet 5 mg PO TID Label Comments: TAKE 1 TABLET BY MOUTH THREE TIMES DAILY levothyroxine 137 mcg tablet 137 mcg PO DAILY Label Comments: Take 1 tablet by mouth once daily. divalproex 250 mg tablet,delayed release (DR/EC) 250 mg PO UD Label Comments: Take 1 tablet by mouth every morning AND TAKE 2 tablets every evening. tizanidine 4 mg tablet 4 mg PO Q8H PRN (Reason: Spasms) Label Comments: TAKE 1 TABLET BY MOUTH EVERY 8 HOURS NEEDED trazodone 100 mg tablet 100 mg PO QHS Label Comments: Take 1 tablet by mouth daily at bedtime. hydroxychloroquine 200 mg tablet 200 mg PO BID Label Comments: Take 1 tablet by mouth twice daily. albuterol sulfate [Ventolin HFA] 90 mcg/actuation HFA aerosol inhaler 2 inh INHALATION Q4H PRN (Reason: sob) Label Comments: Inhale 2 Puffs as instructed every 4 hours as needed. fludrocortisone 0.1 mg tablet 0.1 mg PO DAILY Label Comments: TAKE 1 TABLET BY MOUTH EVERY DAY acarbose 25 mg tablet 25 mg PO TID Label Comments: TAKE 1 TABLET THREE TIMES DAILY eletriptan 40 mg tablet 40 mg PO DAILY Label Comments: Take 1 tablet at the onset of migraine. Repeat 1 dose in 2 hours, if needed. estradiol 0.0375 mg/24 hr patch weekly 0.0375 mg transdermal [place] Label Comments: Apply 1 Patch as directed one time a week. Gvoke HypoPen 2-Pack 1 mg/0.2 mL auto-injector 1 mg SUBCUT DAILY PRN PRN (Reason: Hypoglycemia) Label Comments: Inject 1 mg subcutaneously as needed. metformin 500 mg Tablet 500 mg PO DAILY sulfamethoxazole-trimethoprim [Bactrim DS] 800-160 mg tablet 1 tab PO BID Qty: 14 0RF naproxen [Naprosyn] 500 mg tablet 500 mg PO BID Qty: 20 0RF phenazopyridine [Pyridium] 200 mg tablet 200 mg PO TID Qty: 6 0RF Primary Care Provider: Kevin Stauffer Referrals: eKvin Stauffer MD [Primary Care Provider] - Disposition Disposition: Home, Self Care
[2022-09-10 22:00] LABS: Glucose, Dipstick Normal (Normal); Ketone-Dipstick 5 mg/dl (Negative); Leukocyte Esterase-Dipstick 25 /ul (Negative); Nitrite-Dipstick Positive (Negative); Occult Blood-Urine 150 /ul (Negative); Protein-Dipstick 30 mg/dl (Negative); Urine Clarity Clear (Clear); Urine Urobilinogen 4 mg/dl (Normal)
[2022-09-10 22:03] LABS: Color, Urine SEE COMMENT BELOW (Yellow); Urine Bilirubin Dipstick 3 mg/dL (Negative)
[2022-09-10 22:04] LABS: Internal QC Validated? YES +Cl - CLEAR BKGD; Pregnancy, Urine Negative Negative
[2022-09-10 22:09] LABS: Mucous, Urine 4+ /hpf (<or=2+)
[2022-09-10 22:10] LABS: Red Blood Cells-Urine 5-10 SEEN /hpf (0-5); Squamous Epithelial Cells - UA 0-5 SEEN /hpf (5-10); White Blood Cells 10-25 SEEN /hpf (0-5)
[2022-09-10 22:12] LABS: Bacteria 1+ /hpf (None Seen); Hyaline Cast 0-5 SEEN /lpf (0-5)
[2022-09-10] MEDS: Cephalexin 250 MG Capsule 500 MG PO (22:24)
== END 2022-09-10 22:25 | disposition home or self-care (01) ==
PROVIDERS: Emergency Provider Student in an Organized Health Care Education/Training Program; PCP Family Medicine; Visit Provider Student in an Organized Health Care Education/Training Program
DX: N39.0 Urinary tract infection, site not specified (principal); Z87.891 Personal history of nicotine dependence
CPT/HCPCS: 81001; 81025; 87077; 87086; 87088; 87186; 99283

== ENCOUNTER 2022-09-11 18:12 | Emergency (ER) | payer MEDICAID, SELFPAY ==
[2022-09-11 18:13] VITALS: BP 129/84; PULSE 115; RESP 18; TEMP 36.6; O2SAT 100; BMI 29.1
--- NOTE | 2022-09-11 18:30 | EDS_ITS ---
HPI <TRUDI Nicholson - Last Filed: 09/11/22 20:27> History of Present Illness Chief Complaint: Complaint Narrative Narrative: 27-year-old female presents with urinary retention x24 hours. She has had issues urinating since her hysterectomy 2 years ago. At first it was incontinence and she was placed on antispasmodics. She was having retention issues and her urologist thought it was due to the high dose of the antispasmodic so it was discontinued. She continued to retain urine and was seen here on September 06 and discharged with indwelling Worley catheter. She states it was burning and irritating so she came back on the and had it removed. She came back on the because she was having dysuria and dribbling and was diagnosed with a UTI and prescribed Keflex. She states she has not urinated at all for 24 hours and she has low back pain and suprapubic pressure. She follows with a urologist at [facility] Dr. Lopez and is scheduled to see him in 2 days. PFS <TRUDI Nicholson - Last Filed: 09/11/22 20:27> [facility] Medical History Abnormal uterine bleeding (AUB) Addisonian crisis Addisons disease Adenomyosis Anxiety and depression Asthma Cardiology follow-up encounter Chest pain Chronic female pelvic pain Diabetes Difficulty swallowing Dysphagia Easy bruising Endometriosis determined by laparoscopy Former smoker Gastric reflux Gastroparesis Graves disease History of diverticulitis History of echocardiogram History of IBS History of left heart catheterization History of steroid therapy History of stress test History of ulceration Low iron Migraine Mild intermittent asthma Restless legs Seizures Shortness of breath on exertion Wears glasses Home Medications albuterol sulfate 90 mcg/actuation aerosol inhaler 1 - 2 puff inhalation Q4H PRN PRN Sob &/Or Wheezing 08/04/20 [History Last Taken Unknown] nitroglycerin 0.3 mg sublingual tablet 0.3 mg sublingual Q5M PRN cp 12/11/20 [History Last Taken Unknown] fremanezumab-vfrm 225 mg/1.5 mL subcutaneous auto-injector (Ajovy) 225 mg subcut QMONTH MIGRAINES 09/20/21 [History Last Taken 07/12/22] ondansetron 4 mg disintegrating tablet 4 mg PO Q8H PRN nausea and vomiting #10 tabs 09/29/21 [Rx Last Taken 2 Days Ago ~08/07/22] sucralfate 100 mg/mL oral suspension (Carafate) 10 ml PO TID GERD 11/05/21 [History Last Taken Unknown] lorazepam 1 mg tablet (Ativan) 1 mg PO TID PRN anxiety #12 tabs 12/02/21 [Rx Last Taken 08/08/22] esomeprazole magnesium 40 mg capsule,delayed release (Nexium) 40 mg PO DAILY GERD 12/19/21 [History Last Taken 08/08/22] acarbose 25 mg tablet 25 mg PO TID sugar 08/09/22 [History Last Taken 08/08/22] albuterol sulfate 90 mcg/actuation aerosol inhaler (Ventolin HFA) 2 inh inhalation Q4H PRN sob 08/09/22 [History Last Taken Unknown] buspirone 5 mg tablet 5 mg PO TID ANXIETY 08/09/22 [History Last Taken 08/08/22] divalproex 250 mg tablet,delayed release 250 mg PO UD SEIZURE 08/09/22 [History Last Taken 08/08/22] eletriptan 40 mg tablet 40 mg PO DAILY migraines 08/09/22 [History Last Taken 2 Days Ago ~08/07/22] estradiol 0.0375 mg/24 hr weekly transdermal patch 0.0375 mg transdermal MO HORMONES 08/09/22 [History Last Taken 08/01/22] fludrocortisone 0.1 mg tablet 0.1 mg PO DAILY ADDISONS 08/09/22 [History Last Taken 08/08/22] fluoxetine 40 mg capsule 40 mg PO DAILY ANXIETY 08/09/22 [History Last Taken 08/08/22] glucagon 1 mg/0.2 mL subcutaneous auto-injector (Gvoke HypoPen 2-Pack) 1 mg subcut DAILY PRN PRN Hypoglycemia 08/09/22 [History Last Taken Unknown] hydrocortisone sod succinate 100 mg solution for injection (Solu-Cortef) 5 - 15 mg IM TID ADDISONS 08/09/22 [History Last Taken 08/09/22] hydroxychloroquine 200 mg tablet 200 mg PO BID ARTHRITIS 08/09/22 [History Last Taken 08/08/22] levothyroxine 137 mcg tablet 137 mcg PO DAILY thyroid 08/09/22 [History Last Taken 08/08/22] tizanidine 4 mg tablet 4 mg PO Q8H PRN Spasms 08/09/22 [History Last Taken 2 Days Ago ~08/07/22] trazodone 100 mg tablet 100 mg PO QHS SLEEP 08/09/22 [History Last Taken 08/07/22] metformin 500 mg tablet 500 mg PO DAILY 09/05/22 [History Last Taken Unknown] naproxen 500 mg tablet (Naprosyn) 500 mg PO BID #20 tabs 09/05/22 [Rx Last Taken Unknown] sulfamethoxazole 800 mg-trimethoprim 160 mg tablet (Bactrim DS) 1 tab PO BID #14 tabs 09/05/22 [Rx Last Taken Unknown] phenazopyridine 200 mg tablet (Pyridium) 200 mg PO TID 6 doses #6 tabs 09/06/22 [Rx Last Taken Unknown] cephalexin 500 mg capsule 500 mg PO Q12 #14 caps 09/10/22 [Rx Last Taken Unknown] Allergy/AdvReac Type Severity Reaction Status Date / Time acetaminophen Allergy Anaphylaxis Verified 09/11/22 18:41 [From Excedrin Migraine] aspirin Allergy Anaphylaxis Verified 09/11/22 18:41 [From Excedrin Migraine] azithromycin Allergy Anaphylaxis Verified 09/11/22 18:41 [From Zithromax Z-Ruiz] bacitracin Allergy Swelling Verified 09/11/22 18:41 [From Neosporin ([id number])] bacitracin zinc Allergy Swelling Verified 09/11/22 18:41 [From Neosporin ([id number])] caffeine Allergy Anaphylaxis Verified 09/11/22 18:41 [From Excedrin Migraine] latex Allergy Rash Verified 09/11/22 18:41 neomycin sulfate Allergy Swelling Verified 09/11/22 18:41 [From Neosporin ([id number])] polymyxin B Allergy Swelling Verified 09/11/22 18:41 [From Neosporin ([id number])] Family History Uncle Diabetes Cancer lung Father Diabetes Grandfather CVA (cerebral vascular accident) Cancer lung, unsure additional type Uncle Cancer brain Grandmother Cancer lung and unsure additional type Surgical History History of appendectomy History of section History of laparoscopic-assisted vaginal hysterectomy History of laparoscopy History of left salpingo-oophorectomy History of thyroidectomy History of tubal ligation History of wisdom tooth extraction Hx laparoscopic cholecystectomy Social History Smoking Status: Former smoker ROS <TRUDI Nicholson - Last Filed: 09/11/22 20:27> ROS ED ROS Narrative Constitutional: Negative for fever, chills, malaise. Eyes: Negative for visual change. ENT: Negative for sore throat, ear pain, rhinorrhea. CVS: Negative for palpitations, chest pain, syncope. Respiratory: Negative for shortness of breath, cough, orthopnea. GI: Positive for suprapubic pain. No nausea or vomiting, constipation. : Positive for retention. Neuro: Negative for headache, motor/sensory dysfunction. Skin: Negative for rash, abscess, or wound. Musc: Negative for joint pain, swelling, trauma. Heme: Negative for easy bruising, bleeding, lymphadenopathy. EXAM <TRUDI Nicholson - Last Filed: 09/11/22 20:27> Physical Exam Narrative Exam Narrative: CONST: Patient sitting in no acute distress. EYES: Normal inspection. NECK: Normal inspection. RESP: No respiratory distress, CTAB. CVS: Regular rate and rhythm, no murmur, no gallop. ABD: Soft with suprapubic tenderness but no significant distention, no guarding or rebound. Back: Normal inspection, no CVA tenderness. SKIN: Color normal, no rash, warm, dry, intact. EXTREMITIES: Normal appearance, no pedal edema. NEURO: Oriented x4. PSYCH: Normal affect. Const Vital Signs: 09/11/22 18:13 09/11/22 18:38 09/11/22 18:40 Temperature 98 F 97.8 F 97.8 F Temperature Source Temporal Oral Oral Pulse Rate 115 H 102 H 109 H Respiratory Rate 18 18 18 Blood Pressure 129/84 H 116/87 H 116/87 H Blood Pressure Mean 99 96 96 Pulse Ox 100 100 99 Oxygen Delivery Method Room Air Room Air Room Air 09/11/22 19:57 09/11/22 20:14 09/11/22 20:28 Temperature 97.5 F L Temperature Source Temporal Pulse Rate 88 101 H 93 Respiratory Rate 18 18 18 Blood Pressure 123/68 H 119/63 118/74 Blood Pressure Mean 86 81 Pulse Ox 99 95 94 Oxygen Delivery Method Room Air Room Air <Liborio Santo MD - Last Filed: 09/11/22 22:48> Physical Exam Const Vital Signs: 09/11/22 18:13 09/11/22 18:38 09/11/22 18:40 Temperature 98 F 97.8 F 97.8 F Temperature Source Temporal Oral Oral Pulse Rate 115 H 102 H 109 H Respiratory Rate 18 18 18 Blood Pressure 129/84 H 116/87 H 116/87 H Blood Pressure Mean 99 96 96 Pulse Ox 100 100 99 Oxygen Delivery Method Room Air Room Air Room Air 09/11/22 19:57 09/11/22 20:14 09/11/22 20:28 Temperature 97.5 F L Temperature Source Temporal Pulse Rate 88 101 H 93 Respiratory Rate 18 18 18 Blood Pressure 123/68 H 119/63 118/74 Blood Pressure Mean 86 81 Pulse Ox 99 95 94 Oxygen Delivery Method Room Air Room Air MDM <TRUDI Nicholson - Last Filed: 09/11/22 20:27> [facility] Narrative Medical decision making narrative: Patient presents with urinary retention over the last 24 hours. She was here earlier this week for this issue and had a Worley placed but came back and had it removed due to discomfort. She also just started Keflex for UTI. She appears well nontoxic. Vital signs unremarkable. Anastacio is soft with mild suprapubic tenderness. No CVA tenderness. Bladder scan showed 250 cc present but patient states she has had significantly more than the scan showed in the past. Thus Worley was placed and does have over 400 cc of urine output. Culture from yesterday showed gram-negative rods so it is appropriate to continue Keflex. BMP obtained today is normal and she had symptomatic improvement in her low back pain after Toradol. Patient counseled to follow-up with her urologist as scheduled on 09/13 and was discharged in stable condition. Lab Data Attestation: I reviewed the patient's lab results. Labs: Laboratory Results - last 24 hr 09/11/22 19:26 Sodium 139 Potassium 4.6 Chloride 105 Carbon Dioxide 26.0 Anion Gap 8 BUN 9 Creatinine 0.74 Estim Creat Clear Calc 100.94 Est GFR (MDRD) Af Amer 118 Est GFR (MDRD) Non-Af 98 BUN/Creatinine Ratio 12.1 Glucose 88 Calcium 9.3 <Liborio Santo MD - Last Filed: 09/11/22 22:48> [facility] Narrative Medical decision making narrative: Patient presents with urinary retention over the last 24 hours. She was here earlier this week for this issue and had a Worley placed but came back and had it removed due to discomfort. She also just started Keflex for UTI. She appears well nontoxic. Vital signs unremarkable. Anastacio is soft with mild suprapubic tenderness. No CVA tenderness. Bladder scan showed 250 cc present but patient states she has had significantly more than the scan showed in the past. Thus Worley was placed and does have over 400 cc of urine output. Culture from yesterday showed gram-negative rods so it is appropriate to continue Keflex. BMP obtained today is normal and she had symptomatic improvement in her low back pain after Toradol. Patient counseled to follow-up with her urologist as scheduled on 09/13 and was discharged in stable condition. I have personally performed a face to face assessment of the patient and have reviewed the MIN Note. I performed a substantive portion of the visit including all aspects of the following. My bell findings include: History is low back pain. History of urinary retention and UTI. Seen in emergency department multiple times, the last time for Worley catheter removal, then for UTI symptoms. Complaining of urinary retention and not being able to urinate despite tolerance of p.o. fluids, has not urinated for 24 hours reportedly. Exam is afebrile. Vital signs noted. Regular rate and rhythm. Lungs clear to auscultation bilaterally. Abdomen soft and nontender. Medical Decision Making bladder scan shows only 250 mL of urine. She states that at her urologist office it only showed 300 mL of urine but when they inserted Worlye catheter, 600 mL was produced. She would like Worley catheter inserted. Check BMP. She has normal creatinine of 0.74 and normal BUN of 9, no evidence of dehydration. Given Toradol for her low back pain. Follow-up with urology. Discharge. Other additions or changes: [None] Lab Data Labs: Laboratory Results - last 24 hr 09/11/22 19:26 Sodium 139 Potassium 4.6 Chloride 105 Carbon Dioxide 26.0 Anion Gap 8 BUN 9 Creatinine 0.74 Estim Creat Clear Calc 100.94 Est GFR (MDRD) Af Amer 118 Est GFR (MDRD) Non-Af 98 BUN/Creatinine Ratio 12.1 Glucose 88 Calcium 9.3 Discharge Plan Triage Chief Complaint: Complaint ED Midlevel Provider: Danyell Saenz ED Provider: Liborio Santo Dx/Rx/DC Orders Clinical Impression: Acute on chronic urinary retention, UTI (urinary tract infection) Instructions: ED Worley Catheter, Care, ED Cystitis Female Adult Prescriptions: No Action nitroglycerin 0.3 mg tablet, sublingual 0.3 mg sublingual Q5M PRN (Reason: cp) Rx Instructions: do not exceed 3 doses per episode albuterol sulfate 1 INHALER inhaler 1 - 2 puff INHALATION Q4H PRN PRN (Reason: Sob &/Or Wheezing) Ajovy Autoinjector 225 mg/1.5 mL Auto-Injector 225 mg SUBCUT QMONTH ondansetron 4 mg tablet,disintegrating 4 mg PO Q8H PRN (Reason: nausea and vomiting) Qty: 10 0RF sucralfate [Carafate] 100 mg/mL suspension 10 ml PO TID Rx Instructions: Take one hour prior to meals on an empty stomach. lorazepam [Ativan] 1 mg tablet 1 mg PO TID PRN (Reason: anxiety) Qty: 12 0RF esomeprazole magnesium [Nexium] 40 mg Capsule,Delayed Release(Dr/Ec) 40 mg PO DAILY Solu-Cortef 100 mg recon soln 5 - 15 mg IM TID fluoxetine 40 mg capsule 40 mg PO DAILY Label Comments: Take 1 capsule by mouth once daily. buspirone 5 mg tablet 5 mg PO TID Label Comments: TAKE 1 TABLET BY MOUTH THREE TIMES DAILY levothyroxine 137 mcg tablet 137 mcg PO DAILY Label Comments: Take 1 tablet by mouth once daily. divalproex 250 mg tablet,delayed release (DR/EC) 250 mg PO UD Label Comments: Take 1 tablet by mouth every morning AND TAKE 2 tablets every evening. tizanidine 4 mg tablet 4 mg PO Q8H PRN (Reason: Spasms) Label Comments: TAKE 1 TABLET BY MOUTH EVERY 8 HOURS NEEDED trazodone 100 mg tablet 100 mg PO QHS Label Comments: Take 1 tablet by mouth daily at bedtime. hydroxychloroquine 200 mg tablet 200 mg PO BID Label Comments: Take 1 tablet by mouth twice daily. albuterol sulfate [Ventolin HFA] 90 mcg/actuation HFA aerosol inhaler 2 inh INHALATION Q4H PRN (Reason: sob) Label Comments: Inhale 2 Puffs as instructed every 4 hours as needed. fludrocortisone 0.1 mg tablet 0.1 mg PO DAILY Label Comments: TAKE 1 TABLET BY MOUTH EVERY DAY acarbose 25 mg tablet 25 mg PO TID Label Comments: TAKE 1 TABLET THREE TIMES DAILY eletriptan 40 mg tablet 40 mg PO DAILY Label Comments: Take 1 tablet at the onset of migraine. Repeat 1 dose in 2 hours, if needed. estradiol 0.0375 mg/24 hr patch weekly 0.0375 mg transdermal MO Label Comments: Apply 1 Patch as directed one time a week. Gvoke HypoPen 2-Pack 1 mg/0.2 mL auto-injector 1 mg SUBCUT DAILY PRN PRN (Reason: Hypoglycemia) Label Comments: Inject 1 mg subcutaneously as needed. metformin 500 mg Tablet 500 mg PO DAILY sulfamethoxazole-trimethoprim [Bactrim DS] 800-160 mg tablet 1 tab PO BID Qty: 14 0RF naproxen [Naprosyn] 500 mg tablet 500 mg PO BID Qty: 20 0RF phenazopyridine [Pyridium] 200 mg tablet 200 mg PO TID Qty: 6 0RF cephalexin 500 mg capsule 500 mg PO Q12 Qty: 14 0RF Primary Care Provider: Kevin Stauffer Referrals: Kevin Stauffer MD [Primary Care Provider] - Activity Restrictions/Additional Instructions: Continue the antibiotics and the Worley will stay in until you see your urologist. Disposition Disposition: Home, Self Care Discharge Date/Time: 09/11/22 20:43
[2022-09-11 18:38] VITALS: BP 116/87; PULSE 102; RESP 18; TEMP 36.6; O2SAT 100
[2022-09-11 18:40] VITALS: BP 116/87; PULSE 109; RESP 18; TEMP 36.6; O2SAT 99
[2022-09-11 19:57] VITALS: BP 123/68; PULSE 88; RESP 18; TEMP 36.4; O2SAT 99
--- NOTE | 2022-09-11 20:08 | ED.RN ---
PT REQUESTING PAIN MEDICATION AT 1999. DR. NGUYỄN NOTIFIED AT 2004. NO NEW ORDERS AT THIS TIME.
[2022-09-11 20:14] VITALS: BP 119/63; PULSE 101; RESP 18; O2SAT 95
[2022-09-11] MEDS: Ketorolac 15 MG/ML Vial IV (20:17)
[2022-09-11 20:18] LABS: Anion Gap 8 (5-15); BUN 9 mg/dL (7-18); BUN/Creat Ratio 12.1 RATIO (10-20); Calcium,Total 9.3 mg/dL (8.5-10.1); Chloride 105 mmol/L (98-107); Creatinine, Serum 0.74 mg/dL (0.55-1.02); EST Glomerular Filtration Rate 98 mL/min (>60); Est Glom Filt Rate - Afr Amer 118 mL/min (>60); Estimated Creatinine Clearance 100.94 ml/min; Glucose 88 mg/dL (74-106); Potassium 4.6 mmol/L (3.5-5.1); Sodium Level 139 mmol/L (136-145)
[2022-09-11 20:28] VITALS: BP 118/74; PULSE 93; RESP 18; O2SAT 94
== END 2022-09-11 20:43 | disposition home or self-care (01) ==
PROVIDERS: Physician Assistant; Emergency Provider Emergency Medicine; PCP Family Medicine; Visit Provider Emergency Medicine
DX: R33.9 Retention of urine, unspecified (principal); N39.0 Urinary tract infection, site not specified; Z87.891 Personal history of nicotine dependence
CPT/HCPCS: 51702; 80048; 96374; 99284; A4216

== ENCOUNTER 2022-10-29 10:43 | Emergency (ER) | payer MEDICAID, SELFPAY ==
[2022-10-29 10:45] VITALS: BP 142/97; PULSE 103; RESP 4; TEMP 36.3; O2SAT 99; BMI 27.6
--- NOTE | 2022-10-29 10:56 | RAD_ITS ---
STUDY: X-RAY CHEST REASON FOR EXAM: Female, 27 years old. Weakness TECHNIQUE: Single AP portable view of the chest. COMPARISON: December 21, 2021 FINDINGS: The lungs are clear and expanded. There are stable granulomatous calcification in the left lower chest. There is no demonstrated pleural abnormality. Normal size heart. There are calcified mediastinal lymph nodes. Normal visualized pulmonary arteries. Normal visualized aortic arch and descending thoracic aorta. Normal visualized thoracic spine. Normal visualized ribs, clavicles, and shoulders. There is no demonstrated abnormality of the visualized soft tissue structures of the upper abdomen. RAD/Chest 1 View (Portable) IMPRESSION: No acute cardiopulmonary disease. Stable appearance. Electronically Signed: Piotr Holcomb MD at 12:39 EST ,
--- NOTE | 2022-10-29 10:59 | EDS_ITS ---
HPI History of Present Illness Chief Complaint: Dizziness Narrative Narrative: Patient presents with lightheadedness, she possibly had a seizure and she has some vertigo. 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 She feels the same before each Sequatchie's crisis. She does not feel lightheaded. She has pain in her right upper quadrant which is also consistent with her Sequatchie's disease. No recent fever or chills. No recent urinary symptoms. [facility] Medical History Abnormal uterine bleeding (AUB) Addisonian crisis Addisons disease Adenomyosis Anxiety and depression Asthma Cardiology follow-up encounter Chest pain Chronic female pelvic pain Diabetes Difficulty swallowing Dysphagia Easy bruising Endometriosis determined by laparoscopy Former smoker Gastric reflux Gastroparesis Graves disease History of diverticulitis History of echocardiogram History of IBS History of left heart catheterization History of steroid therapy History of stress test History of ulceration Low iron Migraine Mild intermittent asthma Restless legs Seizures Shortness of breath on exertion Wears glasses Home Medications albuterol sulfate 90 mcg/actuation aerosol inhaler 1 - 2 puff inhalation Q4H PRN PRN Sob &/Or Wheezing 08/04/20 [History Last Taken Unknown] nitroglycerin 0.3 mg sublingual tablet 0.3 mg sublingual Q5M PRN cp 12/11/20 [History Last Taken Unknown] fremanezumab-vfrm 225 mg/1.5 mL subcutaneous auto-injector (Ajovy) 225 mg subcut QMONTH MIGRAINES 09/20/21 [History Last Taken 07/12/22] ondansetron 4 mg disintegrating tablet 4 mg PO Q8H PRN nausea and vomiting #10 tabs 09/29/21 [Rx Last Taken 2 Days Ago ~08/07/22] sucralfate 100 mg/mL oral suspension (Carafate) 10 ml PO TID GERD 11/05/21 [History Last Taken Unknown] lorazepam 1 mg tablet (Ativan) 1 mg PO TID PRN anxiety #12 tabs 12/02/21 [Rx Last Taken 08/08/22] esomeprazole magnesium 40 mg capsule,delayed release (Nexium) 40 mg PO DAILY GERD 12/19/21 [History Last Taken 08/08/22] acarbose 25 mg tablet 25 mg PO TID sugar 10/18/22 [History Last Taken 08/08/22] albuterol sulfate 90 mcg/actuation aerosol inhaler (Ventolin HFA) 2 inh inhalation Q4H PRN sob 08/09/22 [History Last Taken Unknown] buspirone 5 mg tablet 5 mg PO TID ANXIETY 08/09/22 [History Last Taken 08/08/22] divalproex 250 mg tablet,delayed release 250 mg PO UD SEIZURE 08/09/22 [History Last Taken 08/08/22] eletriptan 40 mg tablet 40 mg PO DAILY migraines 08/09/22 [History Last Taken 2 Days Ago ~08/07/22] estradiol 0.0375 mg/24 hr weekly transdermal patch 0.0375 mg transdermal [place] HORMONES 08/09/22 [History Last Taken 08/01/22] fludrocortisone 0.1 mg tablet 0.1 mg PO DAILY ADDISONS 08/09/22 [History Last Taken 08/08/22] fluoxetine 40 mg capsule 40 mg PO DAILY ANXIETY 08/09/22 [History Last Taken 08/08/22] glucagon 1 mg/0.2 mL subcutaneous auto-injector (Gvoke HypoPen 2-Pack) 1 mg subcut DAILY PRN PRN Hypoglycemia 08/09/22 [History Last Taken Unknown] hydrocortisone sod succinate 100 mg solution for injection (Solu-Cortef) 5 - 15 mg IM TID ADDISONS 08/09/22 [History Last Taken 08/09/22] hydroxychloroquine 200 mg tablet 200 mg PO BID ARTHRITIS 08/09/22 [History Last Taken 08/08/22] levothyroxine 137 mcg tablet 137 mcg PO DAILY thyroid 08/09/22 [History Last Taken 08/08/22] tizanidine 4 mg tablet 4 mg PO Q8H PRN Spasms 08/09/22 [History Last Taken 2 Days Ago ~08/07/22] trazodone 100 mg tablet 100 mg PO QHS SLEEP 08/09/22 [History Last Taken 08/07/22] metformin 500 mg tablet 500 mg PO DAILY 09/05/22 [History Last Taken Unknown] naproxen 500 mg tablet (Naprosyn) 500 mg PO BID #20 tabs 09/05/22 [Rx Last Taken Unknown] sulfamethoxazole 800 mg-trimethoprim 160 mg tablet (Bactrim DS) 1 tab PO BID #14 tabs 09/05/22 [Rx Last Taken Unknown] phenazopyridine 200 mg tablet (Pyridium) 200 mg PO TID 6 doses #6 tabs 09/06/22 [Rx Last Taken Unknown] cephalexin 500 mg capsule 500 mg PO Q12 #14 caps 09/10/22 [Rx Last Taken U nknown] oxycodone 5 mg capsule 5 mg PO TID 3 days #9 caps 10/29/22 [Rx Last Taken Unknown] Allergy/AdvReac Type Severity Reaction Status Date / Time acetaminophen Allergy Anaphylaxis Verified 10/29/22 10:49 [From Excedrin Migraine] aspirin Allergy Anaphylaxis Verified 10/29/22 10:49 [From Excedrin Migraine] azithromycin Allergy Anaphylaxis Verified 10/29/22 10:49 [From Zithromax Z-Ruiz] bacitracin Allergy Swelling Verified 10/29/22 10:49 [From Neosporin ([id number])] bacitracin zinc Allergy Swelling Verified 10/29/22 10:49 [From Neosporin ([id number])] caffeine Allergy Anaphylaxis Verified 10/29/22 10:49 [From Excedrin Migraine] latex Allergy Rash Verified 10/29/22 10:49 neomycin sulfate Allergy Swelling Verified 10/29/22 10:49 [From Neosporin ([id number])] polymyxin B Allergy Swelling Verified 10/29/22 10:49 [From Neosporin ([id number])] Family History Uncle Diabetes Cancer lung Father Diabetes Grandfather CVA (cerebral vascular accident) Cancer lung, unsure additional type Uncle Cancer brain Grandmother Cancer lung and unsure additional type Surgical History History of appendectomy History of section History of laparoscopic-assisted vaginal hysterectomy History of laparoscopy History of left salpingo-oophorectomy History of thyroidectomy History of tubal ligation History of wisdom tooth extraction Hx laparoscopic cholecystectomy Social History Smoking Status: Former smoker ROS ROS ED ROS Narrative Past medical history: Reviewed Medications: Reviewed Social history: Noncontributory Review of systems: All systems negative except as indicated General: No fever, she does feel ill Eyes: No visual changes ENT: No upper airway congestion, normal voice Neck: No neck pain Cardiovascular: No chest pain Respiratory: No shortness of breath or cough Gastrointestinal: Right upper quadrant abdominal pain Genitourinary: No dysuria Musculoskeletal: Denies myalgias no difficulty with ambulation Skin: No rash Neurological: Possible seizure, no current neurological symptoms. She is oriented x3. Psych: No recent behavioral changes Hematologic: No easy bleeding or easy bruising EXAM Physical Exam Narrative Exam Narrative: Physical exam General: She appears relatively comfortable in the bed Head: Normocephalic, Atraumatic Eyes: Conjunctiva not pale ENT: Slightly dry mucous membranes. Normal tongue no abrasions. Neck: Supple, Nontender, No lymphadenopathy Cardiovascular: Regular rate, Regular rhythm Respiratory: No distress, CTA bilaterally Abdomen: Soft, Nontender, Nondistended Back: Nontender, Normal Inspection. Negative for: CVA tenderness Extremities: Nontender, No edema. Full range of motion without trauma. Skin: Normal color, No rash Neurological: Alert, Normal Strength, Normal Sensation Psychological: Normal affect Const Vital Signs: 10/29/22 10:45 10/29/22 10:51 10/29/22 11:23 Temperature 97.4 F L Temperature Source Temporal Pulse Rate 103 H Pulse Rate [Lying] 95 Pulse Rate [Sitting (for 1 minute prior to obtaining)] 98 Pulse Rate [Standing (for 1 minute prior to obtaining)] 123 H Respiratory Rate 4 L Respiratory Effort Normal Non-Labored Respiratory Pattern Normal Blood Pressure 142/97 H Blood Pressure [Lying] 118/75 Blood Pressure [Sitting (for 1 minute prior to obtaining)] 120/80 Blood Pressure [Standing (for 1 minute prior to obtaining)] 114/76 Blood Pressure Mean 112 Blood Pressure Mean [Lying] 89 Blood Pressure Mean [Sitting (for 1 minute prior to obtaining)] 93 Blood Pressure Mean [Standing (for 1 minute prior to obtaining)] 88 Pulse Ox 99 Oxygen Delivery Method Room Air 10/29/22 12:30 10/29/22 14:00 Temperature Temperature Source Pulse Rate 102 H 103 H Pulse Rate [Lying] Pulse Rate [Sitting (for 1 minute prior to obtaining)] Pulse Rate [Standing (for 1 minute prior to obtaining)] Respiratory Rate 22 H 14 Respiratory Effort Respiratory Pattern Blood Pressure 112/74 110/74 Blood Pressure [Lying] Blood Pressure [Sitting (for 1 minute prior to obtaining)] Blood Pressure [Standing (for 1 minute prior to obtaining)] Blood Pressure Mean 86 86 Blood Pressure Mean [Lying] Blood Pressure Mean [Sitting (for 1 minute prior to obtaining)] Blood Pressure Mean [Standing (for 1 minute prior to obtaining)] Pulse Ox 97 96 Oxygen Delivery Method Room Air Room Air MDM MDM MDM Narrative Medical decision making narrative: A. Problems addressed Patient has a low TSH which means she probably is taking too much of her Synthroid, I talked to her about reducing it from 130 mg to 100 mg and getting checked again in 1 week. She can follow-up with her front counter clerk. As far as the Sequatchie's, there is no signs or symptoms of this, she has a normal blood pressure and cortisol level in the emergency department. Otherwise she has the same right upper quadrant abdominal pain that she has had in the past, this will be treated with analgesia. I did think about a CT of the abdomen but this is chronic recurrent abdominal pain with no leukocytosis. B. Amount and/or complexity of the data (2 out of 3) 1. I reviewed the external note from the nurse practitioner Dar for GI on 11/12/2021, this chronic abdominal pain seems to be related to acid reflux although the patient thinks it could be related to her Sequatchie's. I interpreted blood work as above I discussed the patient with her sister who was in the room 2. Independent interpretation of test Telemetry: Sinus rhythm with a rate in the low 100s on the monitor there is no ectopy I have thought about doing a CT see above. C. Risk of complications and/or morbidity See above. Lab Data Labs: Laboratory Results - last 24 hr 10/29/22 10/29/22 10/29/22 10:50 10:50 10:50 WBC 5.9 RBC 4.61 Hgb 11.6 L Hct 37.4 MCV 81.1 MCH 25.2 L MCHC 31.0 L RDW Std Deviation 39.4 RDW Coeff of Renetta 13.4 Plt Count 293 MPV 10.0 Immature Gran % (Auto) 0.300 Neut % (Auto) 45.8 L Lymph % (Auto) 39.7 Nye % (Auto) 12.7 H Eos % (Auto) 1.0 Baso % (Auto) 0.5 Absolute Neuts (auto) 2.7 Absolute Lymphs (auto) 2.35 Nucleated RBC % 0 PT INR Sodium 140 Potassium 3.2 L Chloride 105 Carbon Dioxide 23.0 Anion Gap 12 BUN 10 Creatinine 0.89 Estim Creat Clear Calc 83.93 Est GFR (MDRD) Af Amer 96 Est GFR (MDRD) Non-Af 79 BUN/Creatinine Ratio 11.2 Glucose 100 Calcium 9.3 Total Bilirubin 0.50 AST 8 L ALT 19 Alkaline Phosphatase 57 Troponin I High Sens 3 Total Protein 7.9 Albumin 3.5 Globulin 4.4 H Albumin/Globulin Ratio 0.8 L TSH 0.02 L Cortisol 25.40 H Urine Color Urine Clarity Urine pH Ur Specific [place] Urine Protein Urine Glucose (UA) Urine Ketones Urine Occult Blood Urine Nitrite Urine Bilirubin Urine Urobilinogen Ur Leukocyte Esterase Urine Test 10/29/22 10/29/22 11:35 12:00 WBC RBC Hgb Hct MCV MCH MCHC RDW Std Deviation RDW Coeff of Renetta Plt Count MPV Immature Gran % (Auto) Neut % (Auto) Lymph % (Auto) Nye % (Auto) Eos % (Auto) Baso % (Auto) Absolute Neuts (auto) Absolute Lymphs (auto) Nucleated RBC % PT 12.9 INR 1.0 Sodium Potassium Chloride Carbon Dioxide Anion Gap BUN Creatinine Estim Creat Clear Calc Est GFR (MDRD) Af Amer Est GFR (MDRD) Non-Af BUN/Creatinine Ratio Glucose Calcium Total Bilirubin AST ALT Alkaline Phosphatase Troponin I High Sens Total Protein Albumin Globulin Albumin/Globulin Ratio TSH Cortisol Urine Color Yellow Urine Clarity Clear Urine pH 8.0 Ur Specific [place] 1.010 Urine Protein Negative Urine Glucose (UA) Normal Urine Ketones Negative Urine Occult Blood 50 H Urine Nitrite Negative Urine Bilirubin Negative Urine Urobilinogen Normal Ur Leukocyte Esterase Negative Urine Test Negative Radiography Diagnostic Testing: Clinical Impression(s) from Imaging Studies Chest X-Ray 10/29/22 10:56 IMPRESSION: No acute cardiopulmonary disease. Stable appearance. Electronically Signed: Piotr Holcomb MD at 12:39 EST , Treatment and Re-Evaluation Narrative: A. Problems addressed ( does not have to be diagnoses) B. Amount and/or complexity of the data (2 out of 3) I ordered blood work and interpreted it I discussed the patient with her sister who was in the room and told me that she has similar symptoms with all her Sequatchie's disease. 2. Independent interpretation of test Telemetry: EKG: Bedside ultrasound X-ray read by me I have thought about doing the following tests but the patient 3. Discussion of management with external healthcare provider C. Risk of complications and/or morbidity I have thought about admitting the patient High risk parenteral controlled substances Drug therapy requiring intensive monitoring for toxicity The following treatments were considered The following medications were considered The following systemic symptoms have placed the patient at high probability of high risk condition Prescription medication was considered however the patient decided to table take [id number] medication Patient has a chronic history of which is not at goal therapy Patient is having an exacerbation or severe exacerbation of Patient has the following social determinants of health and it impacts their health care Discharge Plan Triage Chief Complaint: Dizziness Other Complaint: Nausea/Vomiting ED Provider: Migel Osei Dx/Rx/DC Orders Clinical Impression: Davonte's disease, Hypothyroidism, Abdominal pain Instructions: Abdominal Pain, When You Have Davonte Disease Prescriptions: New oxycodone 5 mg capsule 5 mg PO TID 3 Days Qty: 9 0RF No Action nitroglycerin 0.3 mg tablet, sublingual 0.3 mg sublingual Q5M PRN (Reason: cp) Rx Instructions: do not exceed 3 doses per episode albuterol sulfate 1 INHALER inhaler 1 - 2 puff INHALATION Q4H PRN PRN (Reason: Sob &/Or Wheezing) Ajovy Autoinjector 225 mg/1.5 mL Auto-Injector 225 mg SUBCUT QMONTH ondansetron 4 mg tablet,disintegrating 4 mg PO Q8H PRN (Reason: nausea and vomiting) Qty: 10 0RF sucralfate [Carafate] 100 mg/mL suspension 10 ml PO TID Rx Instructions: Take one hour prior to meals on an empty stomach. lorazepam [Ativan] 1 mg tablet 1 mg PO TID PRN (Reason: anxiety) Qty: 12 0RF esomeprazole magnesium [Nexium] 40 mg Capsule,Delayed Release(Dr/Ec) 40 mg PO DAILY Solu-Cortef 100 mg recon soln 5 - 15 mg IM TID fluoxetine 40 mg capsule 40 mg PO DAILY Label Comments: Take 1 capsule by mouth once daily. buspirone 5 mg tablet 5 mg PO TID Label Comments: TAKE 1 TABLET BY MOUTH THREE TIMES DAILY levothyroxine 137 mcg tablet 137 mcg PO DAILY Label Comments: Take 1 tablet by mouth once daily. divalproex 250 mg tablet,delayed release (DR/EC) 250 mg PO UD Label Comments: Take 1 tablet by mouth every morning AND TAKE 2 tablets every evening. tizanidine 4 mg tablet 4 mg PO Q8H PRN (Reason: Spasms) Label Comments: TAKE 1 TABLET BY MOUTH EVERY 8 HOURS NEEDED trazodone 100 mg tablet 100 mg PO QHS Label Comments: Take 1 tablet by mouth daily at bedtime. hydroxychloroquine 200 mg tablet 200 mg PO BID Label Comments: Take 1 tablet by mouth twice daily. albuterol sulfate [Ventolin HFA] 90 mcg/actuation HFA aerosol inhaler 2 inh INHALATION Q4H PRN (Reason: sob) Label Comments: Inhale 2 Puffs as instructed every 4 hours as needed. fludrocortisone 0.1 mg tablet 0.1 mg PO DAILY Label Comments: TAKE 1 TABLET BY MOUTH EVERY DAY acarbose 25 mg tablet 25 mg PO TID Label Comments: TAKE 1 TABLET THREE TIMES DAILY eletriptan 40 mg tablet 40 mg PO DAILY Label Comments: Take 1 tablet at the onset of migraine. Repeat 1 dose in 2 hours, if needed. estradiol 0.0375 mg/24 hr patch weekly 0.0375 mg transdermal [place] Label Comments: Apply 1 Patch as directed one time a week. Gvoke HypoPen 2-Pack 1 mg/0.2 mL auto-injector 1 mg SUBCUT DAILY PRN PRN (Reason: Hypoglycemia) Label Comments: Inject 1 mg subcutaneously as needed. metformin 500 mg Tablet 500 mg PO DAILY sulfamethoxazole-trimethoprim [Bactrim DS] 800-160 mg tablet 1 tab PO BID Qty: 14 0RF naproxen [Naprosyn] 500 mg tablet 500 mg PO BID Qty: 20 0RF phenazopyridine [Pyridium] 200 mg tablet 200 mg PO TID Qty: 6 0RF cephalexin 500 mg capsule 500 mg PO Q12 Qty: 14 0RF Primary Care Provider: Kevin Stauffer Referrals: Kevin Stauffer MD [Primary Care Provider] - 3-5 Days Disposition Disposition: Home, Self Care
[2022-10-29] MEDS: 0.9% Normal Saline 1,000 ML 1000 ML IV (11:05)
[2022-10-29 11:15] LABS: Absolute Lymphocyte Count 2.35 X10^3/uL (0.83-4.51); Absolute Neutrophil Count 2.7 X10^3/uL (2.0-7.7); Basophil# 0.03 X10^3/uL; Basophil% 0.5 % (0-1); Eosinophil# 0.06 X10^3/uL; Hematocrit 37.4 % (37-47); Hemoglobin 11.6 g/dL (12.0-15.0); Lymphocyte # 2.35 X10^3/ul (0.83-4.51); Lymphocyte % 39.7 % (19-41); Mean Corpuscular Hgb 25.2 pg (27.0-32.0); Mean Corpuscular Volume 81.1 fL (81-99); Monocyte# 0.75 X10^3/uL; Monocyte% 12.7 % (0-10); NRBC Flagged by Analyzer 0 % (0-5); Neutrophil # 2.71 X10^3/uL (2.7-7.7); Neutrophil % 45.8 % (47-70); Platelet Count 293 K/mm3 (150-450); RBC Distribution Width CV 13.4 % (11.6-14.6); RBC Distribution Width SD 39.4 fl (35.1-43.9); Red Blood Count 4.61 M/mm3 (4.2-5.4); White Blood Count 5.9 K/mm3 (4.4-11.0)
[2022-10-29 11:23] VITALS: BP 114/76; BP 118/75; BP 120/80; PULSE 123; PULSE 95; PULSE 98
[2022-10-29] MEDS: Ondansetron 4 MG/2 ML Vial IV ×2 (11:27→12:48)
[2022-10-29] MEDS: Morphine 4 MG/ML Syringe IV ×2 (11:27→12:41)
[2022-10-29 11:46] LABS: ALB/GLOB Ratio 0.8 RATIO (0.9-2.4); AST(SGOT) 8 U/L (15-37); Alanine Aminotransfer ALT/SGPT 19 U/L (13-56); Albumin, Serum 3.5 g/dL (3.2-5.0); Alkaline Phosphatase 57 U/L (45-117); Anion Gap 12 (5-15); BUN 10 mg/dL (7-18); BUN/Creat Ratio 11.2 RATIO (10-20); Calcium,Total 9.3 mg/dL (8.5-10.1); Chloride 105 mmol/L (98-107); Creatinine, Serum 0.89 mg/dL (0.55-1.02); EST Glomerular Filtration Rate 79 mL/min (>60); Est Glom Filt Rate - Afr Amer 96 mL/min (>60); Estimated Creatinine Clearance 83.93 ml/min; Globulin 4.4 g/dL (2.2-4.2); Glucose 100 mg/dL (74-106); Potassium 3.2 mmol/L (3.5-5.1); Protein, Total 7.9 g/dL (6.4-8.2); Sodium Level 140 mmol/L (136-145); Thyroid Stim Hormone (TSH) 0.02 uIU/mL (0.358-3.74); Troponin-I HS 3 pg/mL (3.0-54.0)
[2022-10-29 11:52] LABS: Prothrombin Time (Protime)PT. 12.9 SECONDS (11.7-14.9)
[2022-10-29 12:10] LABS: Color, Urine Yellow (Yellow); Glucose, Dipstick Normal (Normal); Ketone-Dipstick Negative (Negative); Leukocyte Esterase-Dipstick Negative /ul (Negative); Nitrite-Dipstick Negative (Negative); Occult Blood-Urine 50 /ul (Negative); Protein-Dipstick Negative (Negative); Urine Bilirubin Dipstick Negative (Negative); Urine Clarity Clear (Clear); Urine Urobilinogen Normal (Normal)
[2022-10-29 12:17] LABS: Internal QC Validated? YES +Cl - CLEAR BKGD; Pregnancy, Urine Negative Negative
[2022-10-29 12:30] VITALS: BP 112/74; PULSE 102; RESP 22; O2SAT 97
[2022-10-29] MEDS: LORazepam 2 MG/ML Syringe 0.5 MG IV (12:48)
[2022-10-29 14:00] VITALS: BP 110/74; PULSE 103; RESP 14; O2SAT 96
[2022-10-29] MEDS: oxyCODONE 5 MG Tablet PO (14:54)
[2022-10-29 14:57] VITALS: BP 103/66; PULSE 88
--- NOTE | 2022-10-29 15:00 | ED.RN ---
Waiting for Metoprolol to come from pharmacy and noted VS to be normal with HR now in the 80's, Dr. Osei advised to hold Metoprolol at to DC as ordered due to VS stable.
== END 2022-10-29 15:02 | disposition home or self-care (01) ==
PROVIDERS: Emergency Provider Emergency Medicine; PCP Family Medicine; Visit Provider Emergency Medicine
DX: E27.1 Primary adrenocortical insufficiency (principal); E03.9 Hypothyroidism, unspecified; R11.2 Nausea with vomiting, unspecified; G89.29 Other chronic pain; R10.9 Unspecified abdominal pain; Z87.891 Personal history of nicotine dependence
CPT/HCPCS: 71045; 80053; 81002; 81025; 82533; 84443; 84484; 85025; 85610; 87428; 96361; 96374; 96375; 96376; 99285; J7030; A4216; J2405

== ENCOUNTER 2022-10-31 17:17 | Emergency (ER) | payer MEDICAID, SELFPAY ==
[2022-10-31 17:19] VITALS: BP 119/76; PULSE 109; RESP 18; TEMP 36.6; O2SAT 97; BMI 27.4
--- NOTE | 2022-10-31 19:50 | CT_ITS ---
STUDY: CT CERVICAL SPINE WITHOUT CONTRAST REASON FOR EXAM: Female, 27 years old. Fall. RADIATION DOSAGE (If Supplied By Facility): CTDIvol = ( 20.66 ) mGy, DLP = ( 460.62 ) mGycm TECHNIQUE: High resolution transaxial imaging was performed without contrast material. Sagittal and coronal images were reconstructed. Individualized dose optimization techniques were used for this CT. COMPARISON: None FINDINGS: Normal craniovertebral junction. Normal anterior atlantoaxial articulation. Normal odontoid process. There is straightening of the normal cervical lordosis. Normal vertebral bodies and posterior osseous elements. C2-3: Normal endplates. Normal disc height and morphology. Normal central canal and intervertebral neuroforamina. C3-4: Normal endplates. Normal disc height and morphology. Normal central canal and intervertebral neuroforamina. C4-5: Normal endplates. Normal disc height and morphology. Normal central canal and intervertebral neuroforamina. C5-6: Normal endplates. Normal disc height and morphology. Normal central canal and intervertebral neuroforamina. C6-7: Normal endplates. Normal disc height and morphology. Normal central canal and intervertebral neuroforamina. C7-T1: Normal endplates. Normal disc height and morphology. Normal central canal and intervertebral neuroforamina. Normal visualized soft tissue structures. CT/Spine Cervical without Contras IMPRESSION: 1. No acute fracture or subluxation. 2. Flattening of the cervical lordosis. Positional versus muscular strain. Note: MRI is more sensitive than CT in detecting cord injury, ligamentous injury and epidural hematoma. If there is continued clinical concern for any of these entities, MRI should be considered. Electronically Signed: William Bradford DO at 20:55 EST ,
--- NOTE | 2022-10-31 19:50 | CT_ITS ---
STUDY: CT BRAIN WITHOUT CONTRAST REASON FOR EXAM: Female, 27 years old. Fall. RADIATION DOSAGE (If Supplied By Facility): CTDIvol = ( 44.99 ) mGy, DLP = ( 812.98 ) mGycm TECHNIQUE: Transaxial CT imaging of the brain was performed without administration of intravenous contrast material. Individualized dose optimization techniques were used for this CT. COMPARISON: January 13, 2022. FINDINGS: Normal soft tissue structures. Normal calvarium. Normal size ventricles and extra-axial spaces for the patient''s age. Normal white matter tracts of the cerebral hemispheres. Normal basal ganglia and thalami. Normal brainstem. Normal cerebellum. There is no intracranial hemorrhage. There are no findings of an acute ischemic infarction. Normal visualized paranasal sinuses. CT/Brain/Head without Contrast IMPRESSION: Normal unenhanced CT scan of the brain. Electronically Signed: William Bradford DO at 20:34 EST ,
--- NOTE | 2022-10-31 19:59 | EKG12_ITS ---
Test Reason : DYSRHYTHMIA Blood Pressure : / mmHG Vent. Rate : 072 BPM Atrial Rate : 072 BPM P-R Int : 182 ms QRS Dur : 094 ms QT Int : 418 ms P-R-T Axes : 030 040 012 degrees QTc Int : 457 ms Normal sinus rhythm Normal ECG Confirmed by SENIA PRO, DIANE ([id number]), editorial specialist SOILA SORIANO ([id number]) on 11/02/2022 10:42:03 AM Referred By: TL Confirmed By:DIANE CONN MD
--- NOTE | 2022-10-31 20:00 | RAD_ITS ---
STUDY: X-RAY - PELVIS AND RIGHT HIP REASON FOR EXAM: Female, 27 years old. Fell down a flight of steps at home at approximately 1300 hours. Patient felt dizzy prior to falling. Loss of consciousness with headache dizziness and right hip pain. TECHNIQUE: 3 views of the pelvis and hip. COMPARISON: None. FINDINGS: There is a non-specific bowel gas pattern. Normal visualized soft tissue structures. There are atherosclerotic vascular calcifications. Normal bilateral iliac wings, sacroiliac joints and visualized sacrum. Normal bilateral superior and inferior pubic rami. Normal pubic symphysis. Normal bilateral ischial tuberosities. Normal visualized right femoral head. Normal right acetabulum. Normal right hip joint. RAD/HIP, UNI W/ Pelvis 2-3 Views IMPRESSION: Normal x-ray examination of the pelvis and right hip. Electronically Signed: William Bradford DO at 20:42 EST ,
--- NOTE | 2022-10-31 20:00 | RAD_ITS ---
STUDY: X-RAY - LUMBAR SPINE REASON FOR EXAM: Female, 27 years old. Fell down a flight of steps. Pain. TECHNIQUE: 3 view(s) of the lumbar spine were obtained. COMPARISON: None FINDINGS: Normal lumbar lordosis. There is no substantial scoliosis. There is a normal alignment of the vertebrae. Normal vertebral bodies and endplates. Normal disc space heights. There is no evidence of acute fracture or loss of vertebral axial height. The soft tissue structures are unremarkable. RAD/Lumbar Spine 2 or 3 Views IMPRESSION: Normal x-ray examination of the lumbar spine. Electronically Signed: William Bradford DO at 20:42 EST ,
--- NOTE | 2022-10-31 20:16 | EX.ED.GENINJ ---
HPI <TRUDI Quinones - Last Filed: 10/31/22 22:28> History of Present Illness Chief Complaint: Fall Narrative Narrative: Patient presents today after falling down her stairs earlier this evening. She states she has been dizzy since Monday and went to walk in her basement when she fell down steps. She thinks she may have lost consciousness and woke up on the floor. Patient is complaining of head pain, radiating pain, and lower back pain. Patient has a history of [place]'s disease as well as hypothyroidism. Patient states her dizziness is intermittent and does not worsen with head movements. 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 Patient denies tinnitus, recent illness, fever, chest pain, shortness of breath, abdominal pain, nausea, vomiting, and diarrhea. [facility] <TRUDI Quinones - Last Filed: 10/31/22 22:28> [facility] Medical History Abnormal uterine bleeding (AUB) Addisonian crisis Addisons disease Adenomyosis Anxiety and depression Asthma Cardiology follow-up encounter Chest pain Chronic female pelvic pain Diabetes Difficulty swallowing Dysphagia Easy bruising Endometriosis determined by laparoscopy Former smoker Gastric reflux Gastroparesis Graves disease History of diverticulitis History of echocardiogram History of IBS History of left heart catheterization History of steroid therapy History of stress test History of ulceration Low iron Migraine Mild intermittent asthma Restless legs Seizures Shortness of breath on exertion Wears glasses Home Medications albuterol sulfate 90 mcg/actuation aerosol inhaler 1 - 2 puff inhalation Q4H PRN PRN Sob &/Or Wheezing 08/04/20 [History Last Taken Unknown] nitroglycerin 0.3 mg sublingual tablet 0.3 mg sublingual Q5M PRN cp 12/11/20 [History Last Taken Unknown] fremanezumab-vfrm 225 mg/1.5 mL subcutaneous auto-injector (Ajovy) 225 mg subcut QMONTH MIGRAINES 09/20/21 [History Last Taken 07/12/22] ondansetron 4 mg disintegrating tablet 4 mg PO Q8H PRN nausea and vomiting #10 tabs 09/29/21 [Rx Last Taken 2 Days Ago ~08/07/22] sucralfate 100 mg/mL oral suspension (Carafate) 10 ml PO TID GERD 11/05/21 [History Last Taken Unknown] lorazepam 1 mg tablet (Ativan) 1 mg PO TID PRN anxiety #12 tabs 12/02/21 [Rx Last Taken 08/08/22] esomeprazole magnesium 40 mg capsule,delayed release (Nexium) 40 mg PO DAILY GERD 12/19/21 [History Last Taken 08/08/22] acarbose 25 mg tablet 25 mg PO TID sugar 08/09/22 [History Last Taken 08/08/22] albuterol sulfate 90 mcg/actuation aerosol inhaler (Ventolin HFA) 2 inh inhalation Q4H PRN sob 08/09/22 [History Last Taken Unknown] buspirone 5 mg tablet 5 mg PO TID ANXIETY 08/09/22 [History Last Taken 08/08/22] divalproex 250 mg tablet,delayed release 250 mg PO UD SEIZURE 08/09/22 [History Last Taken 08/08/22] eletriptan 40 mg tablet 40 mg PO DAILY migraines 08/09/22 [History Last Taken 2 Days Ago ~08/07/22] estradiol 0.0375 mg/24 hr weekly transdermal patch 0.0375 mg transdermal MO HORMONES 08/09/22 [History Last Taken 08/01/22] fludrocortisone 0.1 mg tablet 0.1 mg PO DAILY [place] 08/09/22 [History Last Taken 08/08/22] fluoxetine 40 mg capsule 40 mg PO DAILY ANXIETY 08/09/22 [History Last Taken 08/08/22] glucagon 1 mg/0.2 mL subcutaneous auto-injector (Gvoke HypoPen 2-Pack) 1 mg subcut DAILY PRN PRN Hypoglycemia 08/09/22 [History Last Taken Unknown] hydrocortisone sod succinate 100 mg solution for injection (Solu-Cortef) 5 - 15 mg IM TID [place] 08/09/22 [History Last Taken 08/09/22] hydroxychloroquine 200 mg tablet 200 mg PO BID ARTHRITIS 08/09/22 [History Last Taken 08/08/22] levothyroxine 137 mcg tablet 137 mcg PO DAILY thyroid 08/09/22 [History Last Taken 08/08/22] tizanidine 4 mg tablet 4 mg PO Q8H PRN Spasms 08/09/22 [History Last Taken 2 Days Ago ~08/07/22] trazodone 100 mg tablet 100 mg PO QHS SLEEP 08/09/22 [History Last Taken 08/07/22] metformin 500 mg tablet 500 mg PO DAILY 09/05/22 [History Last Taken Unknown] naproxen 500 mg tablet (Naprosyn) 500 mg PO BID #20 tabs 09/05/22 [Rx Last Taken Unknown] sulfamethoxazole 800 mg-trimethoprim 160 mg tablet (Bactrim DS) 1 tab PO BID #14 tabs 09/05/22 [Rx Last Taken Unknown] phenazopyridine 200 mg tablet (Pyridium) 200 mg PO TID 6 doses #6 tabs 09/06/22 [Rx Last Taken Unknown] cephalexin 500 mg capsule 500 mg PO Q12 #14 caps 09/10/22 [Rx Last Taken Unknown] oxycodone 5 mg capsule 5 mg PO TID 3 days #9 caps 10/29/22 [Rx Last Taken Unknown] Allergy/AdvReac Type Severity Reaction Status Date / Time acetaminophen Allergy Anaphylaxis Verified 10/29/22 10:49 [From Excedrin Migraine] aspirin Allergy Anaphylaxis Verified 10/29/22 10:49 [From Excedrin Migraine] azithromycin Allergy Anaphylaxis Verified 10/29/22 10:49 [From Zithromax Z-Ruiz] bacitracin Allergy Swelling Verified 10/29/22 10:49 [From Neosporin ([id number])] bacitracin zinc Allergy Swelling Verified 10/29/22 10:49 [From Neosporin ([id number])] caffeine Allergy Anaphylaxis Verified 10/29/22 10:49 [From Excedrin Migraine] latex Allergy Rash Verified 10/29/22 10:49 neomycin sulfate Allergy Swelling Verified 10/29/22 10:49 [From Neosporin ([id number])] polymyxin B Allergy Swelling Verified 10/29/22 10:49 [From Neosporin ([id number])] Family History Uncle Diabetes Cancer lung Father Diabetes Grandfather CVA (cerebral vascular accident) Cancer lung, unsure additional type Uncle Cancer brain Grandmother Cancer lung and unsure additional type Surgical History History of appendectomy History of section History of laparoscopic-assisted vaginal hysterectomy History of laparoscopy History of left salpingo-oophorectomy History of thyroidectomy History of tubal ligation History of wisdom tooth extraction Hx laparoscopic cholecystectomy Social History Smoking Status: Former smoker ROS <TRUDI Quinones - Last Filed: 10/31/22 22:28> ROS ED Constitutional Constitutional ED: Denies chills, fever(s) or sweats Eyes Eyes: Denies blurry vision or change in vision ENT ENT ED: Denies ear pain or sore throat Cardiovascular Cardiovascular: Denies chest pain or palpitations Respiratory/Chest Respiratory/Chest: Denies cough, dyspnea or dyspnea on exertion Gastrointestinal Gastrointestinal: Reports nausea; Denies abdominal pain, diarrhea or vomiting Genitourinary Genitourinary ED: Denies dysuria, hematuria or urinary frequency Musculoskeletal Musculoskeletal: Reports back pain, myalgias and neck pain Integumentary Denies abscess, Abrasions or rash Neurologic Neurologic: Reports headache(s); Denies paresthesias or weakness Psychiatric Psychiatric: Denies anxiety, depression or suicidal thoughts EXAM <TRUDI Quinones - Last Filed: 10/31/22 22:28> Physical Exam Const Vital Signs: 10/31/22 17:19 10/31/22 21:38 Temperature 98 F Temperature Source Temporal Pulse Rate 109 H 62 Respiratory Rate 18 15 Blood Pressure 119/76 116/74 Blood Pressure Mean 90 Pulse Ox 97 98 Oxygen Delivery Method Room Air Positive well nourished and well developed General Appearance ED: well developed and NAD HEENT atraumatic Eyes PERRL and EOMs intact bilaterally General Eye ED: Yes other Neck full ROM Chest Wall inspection of chest normal and palpation of chest normal Resp normal respiratory effort and clear to auscultation bilaterally Cardio regular rhythm and no murmurs Rate: regular rate GI non-tender, non-distended and no masses Palpation: soft Back/Spine normal to inspection Back/Spine Narrative: Patient does have some tenderness to palpation to her lumbar paraspinal muscles. No hematoma. Extremity Extremity Narrative: Patient has a bruise on her right forearm. She has full range of motion of her arm and denies arm pain. Radial pulses 2+ bilaterally neurovascularly intact, good capillary refill. Patient has tenderness to palpation in her right hip joint. DP pulses 2+ bilaterally, neurovascularly intact, good capillary refill. No hematoma present on either lower extremity. Neuro oriented x3, CN's II-XII intact bilaterally, moves all extremities, no focal motor deficits and no sensory deficits noted Sensorium / Orientation: alert <Dr. Manuel Corrales DO - Last Filed: 10/31/22 23:38> Physical Exam Const Vital Signs: 10/31/22 17:19 10/31/22 21:38 Temperature 98 F Temperature Source Temporal Pulse Rate 109 H 62 Respiratory Rate 18 15 Blood Pressure 119/76 116/74 Blood Pressure Mean 90 Pulse Ox 97 98 Oxygen Delivery Method Room Air MDM <Francisca Gonzalez PA - Last Filed: 10/31/22 22:28> [facility] Narrative Medical decision making narrative: Patient presents after falling down the steps to her basement. Patient appears to be in pain but is nontoxic-appearing. CT of the head and neck obtained and shows no acute findings. Lumbar and hip x-rays obtained and showed no acute findings. She has been given Zofran for her nausea and pain control. Laboratory work obtained due to patient's dizziness does not show any clear findings as to why patient would be dizzy. Free T4 obtained because patient TSH was low on last visit. It appears to be within normal limits. Patient has had this dizziness worked up in the past and states she was put on meclizine by her PCP for vertigo which did not help. Patient was given Reglan here to see if this would help with the dizziness. On reexamination patient requested to go home and did not want to be here anymore. She denied allowing the nurse to ambulate her to see if she could walk and just wanted to leave. Patient discharged home in stable condition. Impressions 1. dizziness 2. fall 3. back pain 4. neck pain 5. hip pain 6. [place]'s disease Attending note: Patient seen and evaluated with shirt creaser. I perform my own [id number]-gs-[id number] evaluation. I agree with the plan of work-up. There is a fall up 15 steps in the basement. She passed out. No anticoagulation medicines. History of [place]'s disease with dizziness symptoms. Pain to her head right hip and lower back. Came in by private vehicle. Exam GCS 15 no scalp hematoma or laceration no hemotympanums there is paraspinal neck tenderness. No midline thoracic or lumbar tenderness no chest wall tenderness. There is small ecchymosis on the lateral aspect of the right hip negative logroll no deformities. Focal neurological deficits. EKG sinus rhythm. Trauma scans head and neck were interpreted reviewed by myself showed no acute intracranial hemorrhage or cervical fractures. Pending radiology read. X-ray 3 views lumbar spine interpreted by myself shows no fracture or dislocation. 3 view right hip and pelvis interpreted by myself no fracture or dislocation. Lab Data Lab results narrative: Hemoglobin 11.5, hematocrit 36, MCH 26.3, BMP unremarkable, T4 1.2, cortisol 4.8 Labs: Laboratory Results - last 24 hr 10/31/22 10/31/22 10/31/22 20:17 20:17 20:17 WBC 6.7 RBC 4.37 Hgb 11.5 L Hct 36.0 L MCV 82.4 MCH 26.3 L MCHC 31.9 L RDW Std Deviation 40.1 RDW Coeff of Renetta 13.4 Plt Count 273 MPV 10.0 Immature Gran % (Auto) 0.100 Neut % (Auto) 51.1 Lymph % (Auto) 34.2 Stephenson % (Auto) 13.3 H Eos % (Auto) 0.9 Baso % (Auto) 0.4 Absolute Neuts (auto) 3.4 Absolute Lymphs (auto) 2.29 Nucleated RBC % 0 Sodium 140 Potassium 4.2 Chloride 105 Carbon Dioxide 27.0 Anion Gap 8 BUN 8 Creatinine 0.74 Estim Creat Clear Calc 100.94 Est GFR (MDRD) Af Amer 118 Est GFR (MDRD) Non-Af 98 BUN/Creatinine Ratio 10.8 Glucose 96 Calcium 9.2 Free T4 1.22 Cortisol 10/31/22 20:25 WBC RBC Hgb Hct MCV MCH MCHC RDW Std Deviation RDW Coeff of Renetta Plt Count MPV Immature Gran % (Auto) Neut % (Auto) Lymph % (Auto) Stephenson % (Auto) Eos % (Auto) Baso % (Auto) Absolute Neuts (auto) Absolute Lymphs (auto) Nucleated RBC % Sodium Potassium Chloride Carbon Dioxide Anion Gap BUN Creatinine Estim Creat Clear Calc Est GFR (MDRD) Af Amer Est GFR (MDRD) Non-Af BUN/Creatinine Ratio Glucose Calcium Free T4 Cortisol 4.80 Radiography Diagnostic Testing: Clinical Impression(s) from Imaging Studies Brain CT 10/31/22 19:50 IMPRESSION: Normal unenhanced CT scan of the brain. Electronically Signed: William [place] kandis at 20:34 EST Reading Location ID and State: [place] / [place] Tel [phone], Service support , Cervical Spine CT 10/31/22 19:50 IMPRESSION: 1. No acute fracture or subluxation. 2. Flattening of the cervical lordosis. Positional versus muscular strain. Note: MRI is more sensitive than CT in detecting cord injury, ligamentous injury and epidural hematoma. If there is continued clinical concern for any of these entities, MRI should be considered. Electronically Signed: William [place] kandis at 20:55 EST Reading Location ID and State: [employer] / [place] Tel [phone], Service support , Hip/Pelvis X-Ray 10/31/22 20:00 IMPRESSION: Normal x-ray examination of the pelvis and right hip. Electronically Signed: William Bradford DO at 20:42 EST Reading Location ID and State: [employer] / [employer] Tel [phone], Service support , Lumbar Spine X-Ray 10/31/22 20:00 IMPRESSION: Normal x-ray examination of the lumbar spine. Electronically Signed: William Bradford DO at 20:42 EST Reading Location ID and State: [employer] / [employer] Tel [phone], Service support , X-rays and CTs interpreted by attending ED physician. EKG Initial EKG: Comments: Sinus rate of 72, no ST changes. T wave inversion in lead III nonspecific. QTc 457. EKG interpreted by attending ED physician. <Dr. Manuel Corrales DO - Last Filed: 10/31/22 23:38> [facility] Narrative Medical decision making narrative: Patient presents after falling down the steps to her basement. Patient appears to be in pain but is nontoxic-appearing. CT of the head and neck obtained and shows no acute findings. Lumbar and hip x-rays obtained and showed no acute findings. She has been given Zofran for her nausea and pain control. Laboratory work obtained due to patient's dizziness does not show any clear findings as to why patient would be dizzy. Free T4 obtained because patient TSH was low on last visit. It appears to be within normal limits. Patient has had this dizziness worked up in the past and states she was put on meclizine by her PCP for vertigo which did not help. Patient was given Reglan here to see if this would help with the dizziness. On reexamination patient requested to go home and did not want to be here anymore. She denied allowing the nurse to ambulate her to see if she could walk and just wanted to leave. Patient discharged home in stable condition. Impressions 1. dizziness 2. fall 3. back pain 4. neck pain 5. hip pain 6. [place]'s disease Attending note: Patient seen and evaluated with shirt creaser. I perform my own iuzr-dg-bqam evaluation. I agree with the plan of work-up. There is a fall up 15 steps in the basement. She passed out. No anticoagulation medicines. History of [place]'s disease with dizziness symptoms. Pain to her head right hip and lower back. Came in by private vehicle. Exam GCS 15 no scalp hematoma or laceration no hemotympanums there is paraspinal neck tenderness. No midline thoracic or lumbar tenderness no chest wall tenderness. There is small ecchymosis on the lateral aspect of the right hip negative logroll no deformities. Focal neurological deficits. EKG sinus rhythm. Trauma scans head and neck were interpreted reviewed by myself showed no acute intracranial hemorrhage or cervical fractures. Pending radiology read. X-ray 3 views lumbar spine interpreted by myself shows no fracture or dislocation. 3 view right hip and pelvis interpreted by myself no fracture or dislocation. Differentials intracranial hemorrhage, syncope, vertigo, right hip fracture versus contusion, lumbar contusion, lumbar sprain, or vertebral fracture. All image studies with CT scan x-rays read by radiology also negative. EKG sinus rhythm. Cortisol returned normal range along with free T4 levels. Initial plan for treatment with Reglan however she declined this. She stated nursing she wanted to go home. Discussed ambulation trial however she states she just wanted to leave. Discharged with outpatient follow-up. Lab Data Attestation: I reviewed the patient's lab results. Labs: Laboratory Results - last 24 hr 10/31/22 10/31/22 10/31/22 20:17 20:17 20:17 WBC 6.7 RBC 4.37 Hgb 11.5 L Hct 36.0 L MCV 82.4 MCH 26.3 L MCHC 31.9 L RDW Std Deviation 40.1 RDW Coeff of Renetta 13.4 Plt Count 273 MPV 10.0 Immature Gran % (Auto) 0.100 Neut % (Auto) 51.1 Lymph % (Auto) 34.2 Stephenson % (Auto) 13.3 H Eos % (Auto) 0.9 Baso % (Auto) 0.4 Absolute Neuts (auto) 3.4 Absolute Lymphs (auto) 2.29 Nucleated RBC % 0 Sodium 140 Potassium 4.2 Chloride 105 Carbon Dioxide 27.0 Anion Gap 8 BUN 8 Creatinine 0.74 Estim Creat Clear Calc 100.94 Est GFR (MDRD) Af Amer 118 Est GFR (MDRD) Non-Af 98 BUN/Creatinine Ratio 10.8 Glucose 96 Calcium 9.2 Free T4 1.22 Cortisol 10/31/22 20:25 WBC RBC Hgb Hct MCV MCH MCHC RDW Std Deviation RDW Coeff of Renetta Plt Count MPV Immature Gran % (Auto) Neut % (Auto) Lymph % (Auto) Stephenson % (Auto) Eos % (Auto) Baso % (Auto) Absolute Neuts (auto) Absolute Lymphs (auto) Nucleated RBC % Sodium Potassium Chloride Carbon Dioxide Anion Gap BUN Creatinine Estim Creat Clear Calc Est GFR (MDRD) Af Amer Est GFR (MDRD) Non-Af BUN/Creatinine Ratio Glucose Calcium Free T4 Cortisol 4.80 Radiography Diagnostic Testing: Clinical Impression(s) from Imaging Studies Brain CT 10/31/22 19:50 IMPRESSION: Normal unenhanced CT scan of the brain. Electronically Signed: William Bradford DO at 20:34 EST Reading Location ID and State: [address] [place] [address] Tel [phone], Service support , Cervical Spine CT 10/31/22 19:50 IMPRESSION: 1. No acute fracture or subluxation. 2. Flattening of the cervical lordosis. Positional versus muscular strain. Note: MRI is more sensitive than CT in detecting cord injury, ligamentous injury and epidural hematoma. If there is continued clinical concern for any of these entities, MRI should be considered. Electronically Signed: William Bradford DO at 20:55 EST Reading Location ID and State: [facility] / [place] Tel [phone], Service support , Hip/Pelvis X-Ray 10/31/22 20:00 IMPRESSION: Normal x-ray examination of the pelvis and right hip. Electronically Signed: William Bradford at 20:42 EST Reading Location ID and State: [place] / [place] Tel [phone], Service support , Lumbar Spine X-Ray 10/31/22 20:00 IMPRESSION: Normal x-ray examination of the lumbar spine. Electronically Signed: William Bradford DO at 20:42 EST Reading Location ID and State: [facility] / [place] Tel [phone], Service support , EKG Initial EKG: Attestation: I personally reviewed and interpreted this EKG as follows: Comments: Sinus rate of 72, no ST changes. T wave inversion in lead III nonspecific. QTc 457. Discharge Plan Triage Chief Complaint: Fall ED Midlevel Provider: Francisca Gonzalez ED Provider: Manuel Corrales Dx/Rx/DC Orders Clinical Impression: Fall, Dizziness, Back pain, Davonte's disease, Contusion of hip, right, Lumbar contusion, CHI (closed head injury) Instructions: ED Dizziness, Uncertain Cause Prescriptions: No Action nitroglycerin 0.3 mg tablet, sublingual 0.3 mg sublingual Q5M PRN (Reason: cp) Rx Instructions: do not exceed 3 doses per episode albuterol sulfate 1 INHALER inhaler 1 - 2 puff INHALATION Q4H PRN PRN (Reason: Sob &/Or Wheezing) Ajovy Autoinjector 225 mg/1.5 mL Auto-Injector 225 mg SUBCUT QMONTH ondansetron 4 mg tablet,disintegrating 4 mg PO Q8H PRN (Reason: nausea and vomiting) Qty: 10 0RF sucralfate [Carafate] 100 mg/mL suspension 10 ml PO TID Rx Instructions: Take one hour prior to meals on an empty stomach. lorazepam [Ativan] 1 mg tablet 1 mg PO TID PRN (Reason: anxiety) Qty: 12 0RF esomeprazole magnesium [Nexium] 40 mg Capsule,Delayed Release(Dr/Ec) 40 mg PO DAILY Solu-Cortef 100 mg recon soln 5 - 15 mg IM TID fluoxetine 40 mg capsule 40 mg PO DAILY Label Comments: Take 1 capsule by mouth once daily. buspirone 5 mg tablet 5 mg PO TID Label Comments: TAKE 1 TABLET BY MOUTH THREE TIMES DAILY levothyroxine 137 mcg tablet 137 mcg PO DAILY Label Comments: Take 1 tablet by mouth once daily. divalproex 250 mg tablet,delayed release (DR/EC) 250 mg PO UD Label Comments: Take 1 tablet by mouth every morning AND TAKE 2 tablets every evening. tizanidine 4 mg tablet 4 mg PO Q8H PRN (Reason: Spasms) Label Comments: TAKE 1 TABLET BY MOUTH EVERY 8 HOURS NEEDED trazodone 100 mg tablet 100 mg PO QHS Label Comments: Take 1 tablet by mouth daily at bedtime. hydroxychloroquine 200 mg tablet 200 mg PO BID Label Comments: Take 1 tablet by mouth twice daily. albuterol sulfate [Ventolin HFA] 90 mcg/actuation HFA aerosol inhaler 2 inh INHALATION Q4H PRN (Reason: sob) Label Comments: Inhale 2 Puffs as instructed every 4 hours as needed. fludrocortisone 0.1 mg tablet 0.1 mg PO DAILY Label Comments: TAKE 1 TABLET BY MOUTH EVERY DAY acarbose 25 mg tablet 25 mg PO TID Label Comments: TAKE 1 TABLET THREE TIMES DAILY eletriptan 40 mg tablet 40 mg PO DAILY Label Comments: Take 1 tablet at the onset of migraine. Repeat 1 dose in 2 hours, if needed. estradiol 0.0375 mg/24 hr patch weekly 0.0375 mg transdermal MO Label Comments: Apply 1 Patch as directed one time a week. Gvoke HypoPen 2-Pack 1 mg/0.2 mL auto-injector 1 mg SUBCUT DAILY PRN PRN (Reason: Hypoglycemia) Label Comments: Inject 1 mg subcutaneously as needed. metformin 500 mg Tablet 500 mg PO DAILY sulfamethoxazole-trimethoprim [Bactrim DS] 800-160 mg tablet 1 tab PO BID Qty: 14 0RF naproxen [Naprosyn] 500 mg tablet 500 mg PO BID Qty: 20 0RF phenazopyridine [Pyridium] 200 mg tablet 200 mg PO TID Qty: 6 0RF cephalexin 500 mg capsule 500 mg PO Q12 Qty: 14 0RF oxycodone 5 mg capsule 5 mg PO TID 3 Days Qty: 9 0RF Primary Care Provider: Kevin Stauffer Referrals: Kevin Stauffer MD [Primary Care Provider] - 3-5 Days Activity Restrictions/Additional Instructions: Ice the area where you are in pain from falling for 10 to 15 minutes 3-4 times a day for the next few days. Follow-up with PCP. You can take Tylenol and ibuprofen for pain. Disposition Disposition: Home, Self Care Discharge Date/Time: 10/31/22 21:39
[2022-10-31 20:32] LABS: Absolute Lymphocyte Count 2.29 X10^3/uL (0.83-4.51); Absolute Neutrophil Count 3.4 X10^3/uL (2.0-7.7); Basophil# 0.03 X10^3/uL; Basophil% 0.4 % (0-1); Eosinophil# 0.06 X10^3/uL; Eosinophils% 0.9 % (0-5); Hemoglobin 11.5 g/dL (12.0-15.0); Lymphocyte # 2.29 X10^3/ul (0.83-4.51); Lymphocyte % 34.2 % (19-41); Mean Corp Hgb Conc 31.9 g/dL (32-36); Mean Corpuscular Hgb 26.3 pg (27.0-32.0); Mean Corpuscular Volume 82.4 fL (81-99); Monocyte# 0.89 X10^3/uL; Monocyte% 13.3 % (0-10); NRBC Flagged by Analyzer 0 % (0-5); Neutrophil # 3.41 X10^3/uL (2.7-7.7); Neutrophil % 51.1 % (47-70); Platelet Count 273 K/mm3 (150-450); RBC Distribution Width CV 13.4 % (11.6-14.6); RBC Distribution Width SD 40.1 fl (35.1-43.9); Red Blood Count 4.37 M/mm3 (4.2-5.4); White Blood Count 6.7 K/mm3 (4.4-11.0)
[2022-10-31] MEDS: fentaNYL 100 MCG/2 ML Ampul 25 MCG IV (20:33)
[2022-10-31] MEDS: Ondansetron 4 MG/2 ML Vial IV (20:34)
[2022-10-31 20:48] LABS: Anion Gap 8 (5-15); BUN 8 mg/dL (7-18); BUN/Creat Ratio 10.8 RATIO (10-20); Calcium,Total 9.2 mg/dL (8.5-10.1); Chloride 105 mmol/L (98-107); Creatinine, Serum 0.74 mg/dL (0.55-1.02); EST Glomerular Filtration Rate 98 mL/min (>60); Est Glom Filt Rate - Afr Amer 118 mL/min (>60); Estimated Creatinine Clearance 100.94 ml/min; Glucose 96 mg/dL (74-106); Potassium 4.2 mmol/L (3.5-5.1); Sodium Level 140 mmol/L (136-145)
[2022-10-31 20:58] LABS: T4 Free Direct 1.22 ng/dL (0.76-1.46)
[2022-10-31] MEDS: Metoclopramide 10 MG/2 ML Vial 5 MG IV (21:21)
--- NOTE | 2022-10-31 21:37 | ED.RN ---
Pt. back and forth about wanting to be admitted and wanting to go home. Pt. states she is still dizzy, still in pain but wants to go home. This RN attempted to walk patient her Dr. order to ensure she could walk and pt. refused. States she would just like to go home.
[2022-10-31 21:38] VITALS: BP 116/74; PULSE 62; RESP 15; O2SAT 98
--- NOTE | 2022-10-31 21:39 | ED.RN ---
PT STATED SHE WAS READY TO GO HOME AND DIDN'T WANT TO WAIT FOR DC PAPERS. PT AMBULATED FROM ED WITH STEADY GAIT AND NO SIGN OF DISCOMFORT
== END 2022-10-31 21:39 | disposition home or self-care (01) ==
PROVIDERS: Physician Assistant; Emergency Provider Emergency Medicine; PCP Family Medicine; Visit Provider Emergency Medicine
DX: S70.01XA Contusion of right hip, initial encounter (principal); E27.1 Primary adrenocortical insufficiency; E11.9 Type 2 diabetes mellitus without complications; S30.0XXA Contusion of lower back and pelvis, initial encounter; W10.8XXA Fall (on) (from) other stairs and steps, initial encounter; Y93.01 Activity, walking, marching and hiking; Y99.8 Other external cause status; Y92.008 Other place in unspecified non-institutional (private) residence as the place of occurrence of the external cause; E03.9 Hypothyroidism, unspecified; Z79.84 Long term (current) use of oral hypoglycemic drugs; Z79.899 Other long term (current) drug therapy; Z87.891 Personal history of nicotine dependence
CPT/HCPCS: 70450; 72100; 72125; 73502; 80048; 82533; 84439; 85025; 93005; 96374; 96375; 99282; J2405

== ENCOUNTER 2022-11-03 19:21 | Emergency (ER) | payer MEDICAID, SELFPAY ==
[2022-11-03 19:23] VITALS: BP 112/82; PULSE 86; RESP 18; TEMP 36.3; O2SAT 100; BMI 29.5
--- NOTE | 2022-11-03 20:05 | EDS_ITS ---
HPI HPI - GI History of Present Illness Chief Complaint: Nausea/Vomiting/Diarrhea Informant: patient Abdominal Pain/Flank Pain Onset: Weeks (1) Context: Gradual Onset Timing: Continuous Quality: Aching Location: RUQ Current Severity: Moderate Maximum Severity: Moderate Worsened by: - (vomiting) Relieved by: Nothing Nausea/Vomiting/Emesis GI Symptom: Positive for Nausea and Vomiting Onset: Weeks (1) Quality: Positive for Nonbilious Severity: Severe Diarrhea/Melena/Hematochezia GI Symptom: Positive for Diarrhea; Negative for Melena or Hematochezia Onset: Weeks (1) Stool Quality: Positive for Watery Severity: Moderate Associated Symptoms Associated Symptoms: Negative for Dysuria, Frequency or Hematuria Narrative Narrative: Patient presents with 1 week of vomiting and diarrhea, right upper quadrant abdominal pain. She has had prior cholecystectomy and appendectomy. She states she has a history of [place]ag[place]'s disease and it is flared up. When asked how she knows that, she states the same symptoms that she already told me. Earlier in the week, she was seen here after she had a syncopal episode, resulting in her falling down a flight of steps. She had imaging here, verified she did not have any acute injuries other than contusions. She has had no further syncopal episodes. She is on Solu-Cortef subcutaneous injections, 15 mg every morning, and 7.5 mg another 2 times throughout the rest of the day, she has been continuing to do that but no stress dosing. She denies any known fevers. She states she was treated the other 2 times she was in this emergency department and this past week when she has had the symptoms, but she has not been prescribed any antinausea medication to use at home. [facility] Medical History Abnormal uterine bleeding (AUB) Addisonian crisis Addisons disease Adenomyosis Anxiety and depression Asthma Cardiology follow-up encounter Chest pain Chronic female pelvic pain Diabetes Difficulty swallowing Dysphagia Easy bruising Endometriosis determined by laparoscopy Former smoker Gastric reflux Gastroparesis Graves disease History of diverticulitis History of echocardiogram History of IBS History of left heart catheterization History of steroid therapy History of stress test History of ulceration Low iron Migraine Mild intermittent asthma Restless legs Seizures Shortness of breath on exertion Wears glasses Home Medications albuterol sulfate 90 mcg/actuation aerosol inhaler 1 - 2 puff inhalation Q4H PRN PRN Sob &/Or Wheezing 08/04/20 [History Last Taken Unknown] nitroglycerin 0.3 mg sublingual tablet 0.3 mg sublingual Q5M PRN cp 12/11/20 [History Last Taken Unknown] fremanezumab-vfrm 225 mg/1.5 mL subcutaneous auto-injector (Ajovy) 225 mg subcut QMONTH MIGRAINES 09/20/21 [History Last Taken 07/12/22] lorazepam 1 mg tablet (Ativan) 1 mg PO TID PRN anxiety #12 tabs 12/02/21 [Rx Last Taken 08/08/22] esomeprazole magnesium 40 mg capsule,delayed release (Nexium) 40 mg PO DAILY GERD 12/19/21 [History Last Taken 08/08/22] acarbose 25 mg tablet 25 mg PO TID sugar 08/09/22 [History Last Taken 08/08/22] albuterol sulfate 90 mcg/actuation aerosol inhaler (Ventolin HFA) 2 inh inhalation Q4H PRN sob 08/09/22 [History Last Taken Unknown] buspirone 5 mg tablet 5 mg PO TID ANXIETY 08/09/22 [History Last Taken 08/08/22] divalproex 250 mg tablet,delayed release 250 mg PO UD SEIZURE 08/09/22 [History Last Taken 08/08/22] eletriptan 40 mg tablet 40 mg PO DAILY migraines 08/09/22 [History Last Taken 2 Days Ago ~08/07/22] estradiol 0.0375 mg/24 hr weekly transdermal patch 0.0375 mg transdermal MO HORMONES 08/09/22 [History Last Taken 08/01/22] fludrocortisone 0.1 mg tablet 0.1 mg PO DAILY ADDISONS 08/09/22 [History Last Taken 08/08/22] fluoxetine 40 mg capsule 40 mg PO DAILY ANXIETY 08/09/22 [History Last Taken 08/08/22] glucagon 1 mg/0.2 mL subcutaneous auto-injector (Gvoke HypoPen 2-Pack) 1 mg subcut DAILY PRN PRN Hypoglycemia 08/09/22 [History Last Taken Unknown] hydrocortisone sod succinate 100 mg solution for injection (Solu-Cortef) 5 - 15 mg IM TID ADDISONS 08/09/22 [History Last Taken 08/09/22] hydroxychloroquine 200 mg tablet 200 mg PO BID ARTHRITIS 08/09/22 [History Last Taken 08/08/22] levothyroxine 137 mcg tablet 137 mcg PO DAILY thyroid 08/09/22 [History Last Taken 08/08/22] tizanidine 4 mg tablet 4 mg PO Q8H PRN Spasms 08/09/22 [History Last Taken 2 Days Ago ~08/07/22] metformin 500 mg tablet 500 mg PO DAILY 09/05/22 [History Last Taken Unknown] hydrocodone-acetaminophen 5-325mg 5mg-325mg 1 tab PO Q4H PRN PRN Pain 2 days #10 TABLETS 11/03/22 [Rx Last Taken Unknown] ondansetron 4 mg disintegrating tablet 8 mg PO Q8H PRN PRN Nausea #20 tabs 11/03/22 [Rx Last Taken Unknown] Allergy/AdvReac Type Severity Reaction Status Date / Time acetaminophen Allergy Anaphylaxis Verified 10/29/22 10:49 [From Excedrin Migraine] aspirin Allergy Anaphylaxis Verified 10/29/22 10:49 [From Excedrin Migraine] azithromycin Allergy Anaphylaxis Verified 10/29/22 10:49 [From Zithromax Z-Ruiz] bacitracin Allergy Swelling Verified 10/29/22 10:49 [From Neosporin ([id number])] bacitracin zinc Allergy Swelling Verified 10/29/22 10:49 [From Neosporin ([id number])] caffeine Allergy Anaphylaxis Verified 10/29/22 10:49 [From Excedrin Migraine] latex Allergy Rash Verified 10/29/22 10:49 neomycin sulfate Allergy Swelling Verified 10/29/22 10:49 [From Neosporin ([id number])] polymyxin B Allergy Swelling Verified 10/29/22 10:49 [From Neosporin ([id number])] Family History Uncle Diabetes Cancer lung Father Diabetes Grandfather CVA (cerebral vascular accident) Cancer lung, unsure additional type Uncle Cancer brain Grandmother Cancer lung and unsure additional type Surgical History History of appendectomy History of section History of laparoscopic-assisted vaginal hysterectomy History of laparoscopy History of left salpingo-oophorectomy History of thyroidectomy History of tubal ligation History of wisdom tooth extraction Hx laparoscopic cholecystectomy Social History Smoking Status: Former smoker ROS ROS ED Constitutional Constitutional ED: Reports fatigue and malaise; Denies chills or fever(s) Eyes Eyes: Denies change in vision or diplopia ENT ENT ED: Denies rhinorrhea or sore throat Cardiovascular Cardiovascular: Reports syncope; Denies chest pain or palpitations Respiratory/Chest Respiratory/Chest: Denies cough or dyspnea Gastrointestinal Gastrointestinal: Reports abdominal pain, diarrhea, nausea and vomiting; Denies melena Genitourinary Genitourinary ED: Denies dysuria or hematuria Musculoskeletal Musculoskeletal: Denies back pain or neck pain Integumentary Denies abscess or rash Neurologic Neurologic: Denies headache(s), paresthesias or weakness Psychiatric Psychiatric: Denies anxiety or suicidal thoughts EXAM Physical Exam Const Vital Signs: 11/03/22 19:23 11/03/22 21:57 Temperature 97.3 F L Temperature Source Temporal Pulse Rate 86 82 Respiratory Rate 18 16 Blood Pressure 112/82 H 120/88 H Blood Pressure Mean 92 98 Pulse Ox 100 98 Oxygen Delivery Method Room Air Room Air Positive well nourished and well developed Constitutional Narrative: Appears malaised, no distress. Conversive in full sentences. Keenly alert. General Appearance ED: well developed and NAD HEENT Reports moist mucous membranes normocephalic and atraumatic Eyes PERRL and EOMs intact bilaterally Neck full ROM and supple Resp normal respiratory effort and clear to auscultation bilaterally Cardio regular rate, regular rhythm and no murmurs Rate: Negative for tachycardic GI non-distended GI Narrative: Tender epigastrium and right upper quadrant, no guarding or rebound. No other areas of tenderness. Soft. Auscultation: normoactive bowel sounds Palpation: soft Back/Spine no CVA tenderness General Back: other FROM Extremity normal to inspection General Extremety ED: Negative for edema, pulses abnormal or tenderness General Extremity: Negative for edema or pulses abnormal Neuro oriented x3, CN's II-XII intact bilaterally and no sensory deficits noted Sensorium / Orientation: awake and alert Motor Exam: strength 5/5 throughout Psych thought process normal Mood & Affect: anxious Skin no rashes or lesions noted and no wounds MDM MDM MDM Narrative Medical decision making narrative: I reviewed patient's prior labs and imaging. Her blood pressure is normal right now, but I am still giving her a stress dose of Solu-Medrol 60 mg IV in addition to IV fluids, Zofran, and analgesics. She had CT imaging of her head and neck but did not have anything of her abdomen/pelvis. Since she has been having this pain for a week now even though she has had prior cholecystectomy I am doing labs as well as a CT. Labs are normal. There is no electrolyte imbalance nor hypotension to suggest adrenal crisis. Given her acute illness, I gave her IV Solu-Medrol 60 mg in order to provide stress dose steroid to help her avoid adrenal crisis. She injects at home, so she is already bypassing the GI tract with her GI illness. She states she has been able to keep down fluids well, but having trouble eating at home. She was feeling better after medications here although the pain was coming back. I am happy to retreat this. We did a CT scan of her abdomen/pelvis I see nothing acute. My interpretation of the CT agrees with that of the radiologist. Given all of this, I am comfortable discharging her home. I did consider the possibility of C. difficile since she has had cephalexin for a urinary tract infection recently, however she did not provide diarrhea to send to the lab here in the emergency department. She states the last time she went was right before coming to the ER and it was liquid. I will send her home with a kit and a prescription for C. difficile testing and close outpatient follow-up if her symptoms do not resolve. Advised to eat yogurt every day, prescribe Zofran to go home with, and advised regarding stress dose steroids, I would recommend doubling her dosing for right now, basically until her illness resolves I think would be reasonable as long as it is less than a week. Lab Data Attestation: I reviewed the patient's lab results. Labs: Laboratory Results - last 24 hr 11/03/22 11/03/22 20:15 20:15 WBC 5.4 RBC 4.11 L Hgb 10.5 L Hct 33.6 L MCV 81.8 MCH 25.5 L MCHC 31.3 L RDW Std Deviation 39.3 RDW Coeff of Renetta 13.1 Plt Count 267 MPV 9.7 Immature Gran % (Auto) 0.200 Neut % (Auto) 41.0 L Lymph % (Auto) 43.5 H Bertie % (Auto) 13.6 H Eos % (Auto) 1.1 Baso % (Auto) 0.6 Absolute Neuts (auto) 2.2 Absolute Lymphs (auto) 2.33 Nucleated RBC % 0 Sodium 142 Potassium 3.6 Chloride 110 H Carbon Dioxide 27.0 Anion Gap 5 BUN 9 Creatinine 0.70 Estim Creat Clear Calc 106.71 Est GFR (MDRD) Af Amer 127 Est GFR (MDRD) Non-Af 105 BUN/Creatinine Ratio 12.9 Glucose 90 Calcium 8.5 Total Bilirubin 0.30 AST 12 L ALT 52 Alkaline Phosphatase 76 Total Protein 6.9 Albumin 3.1 L Globulin 3.8 Albumin/Globulin Ratio 0.8 L Lipase 100 Radiography Diagnostic Testing: Clinical Impression(s) from Imaging Studies Abdomen/Pelvis CT 11/03/22 20:07 IMPRESSION: No mass or obstruction. No hydronephrosis. Postoperative change. Electronically Signed: Piotr Holcomb MD at 21:34 EST , Discharge Plan Triage Chief Complaint: Nausea/Vomiting/Diarrhea ED Provider: Piotr Garay Dx/Rx/DC Orders Clinical Impression: Gastroenteritis, [place]ag[place]a's disease, Right upper quadrant abdominal pain Instructions: Viral Gastroenteritis, Abdominal Pain Prescriptions: New hydrocodone-acetaminophen [hydrocodone-acetaminophen] 5-325 mg tablet 1 tab PO Q4H PRN PRN (Reason: Pain) 2 Days Qty: 10 0RF ondansetron [ondansetron] 4 mg tablet,disintegrating 8 mg PO Q8H PRN PRN (Reason: Nausea) Qty: 20 0RF No Action nitroglycerin 0.3 mg tablet, sublingual 0.3 mg sublingual Q5M PRN (Reason: cp) Rx Instructions: do not exceed 3 doses per episode albuterol sulfate 1 INHALER inhaler 1 - 2 puff INHALATION Q4H PRN PRN (Reason: Sob &/Or Wheezing) Ajovy Autoinjector 225 mg/1.5 mL Auto-Injector 225 mg SUBCUT QMONTH lorazepam [Ativan] 1 mg tablet 1 mg PO TID PRN (Reason: anxiety) Qty: 12 0RF esomeprazole magnesium [Nexium] 40 mg Capsule,Delayed Release(Dr/Ec) 40 mg PO DAILY Solu-Cortef 100 mg recon soln 5 - 15 mg IM TID fluoxetine 40 mg capsule 40 mg PO DAILY Label Comments: Take 1 capsule by mouth once daily. buspirone 5 mg tablet 5 mg PO TID Label Comments: TAKE 1 TABLET BY MOUTH THREE TIMES DAILY levothyroxine 137 mcg tablet 137 mcg PO DAILY Label Comments: Take 1 tablet by mouth once daily. divalproex 250 mg tablet,delayed release (DR/EC) 250 mg PO UD Label Comments: Take 1 tablet by mouth every morning AND TAKE 2 tablets every evening. tizanidine 4 mg tablet 4 mg PO Q8H PRN (Reason: Spasms) Label Comments: TAKE 1 TABLET BY MOUTH EVERY 8 HOURS NEEDED hydroxychloroquine 200 mg tablet 200 mg PO BID Label Comments: Take 1 tablet by mouth twice daily. albuterol sulfate [Ventolin HFA] 90 mcg/actuation HFA aerosol inhaler 2 inh INHALATION Q4H PRN (Reason: sob) Label Comments: Inhale 2 Puffs as instructed every 4 hours as needed. fludrocortisone 0.1 mg tablet 0.1 mg PO DAILY Label Comments: TAKE 1 TABLET BY MOUTH EVERY DAY acarbose 25 mg tablet 25 mg PO TID Label Comments: TAKE 1 TABLET THREE TIMES DAILY eletriptan 40 mg tablet 40 mg PO DAILY Label Comments: Take 1 tablet at the onset of migraine. Repeat 1 dose in 2 hours, if needed. estradiol 0.0375 mg/24 hr patch weekly 0.0375 mg transdermal MO Label Comments: Apply 1 Patch as directed one time a week. Gvoke HypoPen 2-Pack 1 mg/0.2 mL auto-injector 1 mg SUBCUT DAILY PRN PRN (Reason: Hypoglycemia) Label Comments: Inject 1 mg subcutaneously as needed. metformin 500 mg Tablet 500 mg PO DAILY Primary Care Provider: Kevin Stauffer Referrals: Kevin Stauffer MD [Primary Care Provider] - 3-5 Days if not improving Activity Restrictions/Additional Instructions: Double your steroid injection dosing until your vomiting and diarrhea are better, then go back to your usual dosing. Disposition Disposition: Home, Self Care
--- NOTE | 2022-11-03 20:07 | CT_ITS ---
STUDY: CT ABDOMEN AND PELVIS WITH CONTRAST REASON FOR EXAM: Female, 27 years old. Upper abd pain, vomiting RADIATION DOSAGE (If Supplied By Facility): CTDIvol = ( 17.49 ) mGy, DLP = ( 799.56 ) mGycm TECHNIQUE: Transaxial images were obtained from the dome of the diaphragm to the symphysis pubis without oral contrast. IV 100mL Isovue-370 was administered. Sagittal and coronal images were reconstructed. Individualized dose optimization techniques were used for this CT. COMPARISON: None. FINDINGS: There is left lower lung granuloma. The visualized portions of the heart are within normal limits. Normal liver. There is non-visualization of the gallbladder, which may be secondary to either contraction or a prior cholecystectomy. Normal spleen. Normal pancreas. Normal bilateral adrenal glands. Normal right kidney. Normal left kidney. Normal visualized stomach. Normal small intestine. Normal colon. There are surgical clips in the region of the appendix consistent with a prior appendectomy. Normal abdominal aorta. Normal inferior vena cava. Normal retroperitoneum. Normal urinary bladder. There is absence of the uterus consistent with a prior hysterectomy. There is no free fluid in the abdomen or pelvis. Normal abdominal wall. Normal osseous structures. CT/Abdomen/Pelvis W IV Cont ONLY IMPRESSION: No mass or obstruction. No hydronephrosis. Postoperative change. Electronically Signed: Piotr Holcomb MD at 21:34 EST ,
[2022-11-03] MEDS: Dicyclomine 20 MG/2 ML Vial IM (20:15)
[2022-11-03] MEDS: MethylPREDNISolone 125 MG/2 ML Vial 60 MG IV (20:16)
[2022-11-03] MEDS: Ondansetron 4 MG/2 ML Vial IV (20:16)
[2022-11-03] MEDS: Ketorolac 15 MG/ML Vial IV (20:16)
[2022-11-03] MEDS: 0.9% Normal Saline 1,000 ML 999 ML IV (20:17)
[2022-11-03 20:24] LABS: Absolute Lymphocyte Count 2.33 X10^3/uL (0.83-4.51); Absolute Neutrophil Count 2.2 X10^3/uL (2.0-7.7); Basophil# 0.03 X10^3/uL; Basophil% 0.6 % (0-1); Eosinophil# 0.06 X10^3/uL; Eosinophils% 1.1 % (0-5); Hematocrit 33.6 % (37-47); Hemoglobin 10.5 g/dL (12.0-15.0); Lymphocyte # 2.33 X10^3/ul (0.83-4.51); Lymphocyte % 43.5 % (19-41); Mean Corp Hgb Conc 31.3 g/dL (32-36); Mean Corpuscular Hgb 25.5 pg (27.0-32.0); Mean Corpuscular Volume 81.8 fL (81-99); Mean Platelet Vol. 9.7 fl (6.2-12.0); Monocyte# 0.73 X10^3/uL; Monocyte% 13.6 % (0-10); NRBC Flagged by Analyzer 0 % (0-5); Platelet Count 267 K/mm3 (150-450); RBC Distribution Width CV 13.1 % (11.6-14.6); RBC Distribution Width SD 39.3 fl (35.1-43.9); Red Blood Count 4.11 M/mm3 (4.2-5.4); White Blood Count 5.4 K/mm3 (4.4-11.0)
[2022-11-03 20:43] LABS: ALB/GLOB Ratio 0.8 RATIO (0.9-2.4); AST(SGOT) 12 U/L (15-37); Alanine Aminotransfer ALT/SGPT 52 U/L (13-56); Albumin, Serum 3.1 g/dL (3.2-5.0); Alkaline Phosphatase 76 U/L (45-117); Anion Gap 5 (5-15); BUN 9 mg/dL (7-18); BUN/Creat Ratio 12.9 RATIO (10-20); Calcium,Total 8.5 mg/dL (8.5-10.1); Chloride 110 mmol/L (98-107); EST Glomerular Filtration Rate 105 mL/min (>60); Est Glom Filt Rate - Afr Amer 127 mL/min (>60); Estimated Creatinine Clearance 106.71 ml/min; Globulin 3.8 g/dL (2.2-4.2); Glucose 90 mg/dL (74-106); Lipase 100 U/L (73-393); Potassium 3.6 mmol/L (3.5-5.1); Protein, Total 6.9 g/dL (6.4-8.2); Sodium Level 142 mmol/L (136-145)
[2022-11-03] MEDS: Morphine 4 MG/ML Syringe IV (20:58)
[2022-11-03 21:57] VITALS: BP 120/88; PULSE 82; RESP 16; O2SAT 98
[2022-11-03] MEDS: HYDROcodone Bitartrate/Apap 5/325 Tablet PO (23:10)
[2022-11-03] MEDS: Mag Hydrox/Al Hydrox/Simeth 30 ML UDC PO (23:10)
== END 2022-11-03 23:53 | disposition home or self-care (01) ==
PROVIDERS: Emergency Provider Emergency Medicine; PCP Family Medicine; Visit Provider Emergency Medicine
DX: K52.9 Noninfective gastroenteritis and colitis, unspecified (principal); E27.1 Primary adrenocortical insufficiency; R10.11 Right upper quadrant pain; Z87.891 Personal history of nicotine dependence
CPT/HCPCS: 74177; 80053; 83690; 85025; 96372; 96374; 96375; 99285; Q9967; J2405

== ENCOUNTER 2023-02-04 16:46 | Emergency (ER) | payer MEDICAID, SELFPAY ==
[2023-02-04 16:48] VITALS: PULSE 103; RESP 16; TEMP 36.3; BMI 32.1
--- NOTE | 2023-02-04 17:09 | EX.ED.DYSGE1 ---
HPI History of Present Illness Chief Complaint: Seizure Narrative Narrative: 27-year-old female here with concern for seizure, vomiting. History is provided by patient and EMS. Patient states she was lying in bed when she had aura of having a seizure. Denies any recent fever, abdominal pain. Notes after her seizure she had vomiting. Thinks her [place]'s is getting worse. States she does not think she is . Denies any medication noncompliance. Last dose of Depakote was yesterday. PFSH PFS Medical History Abnormal uterine bleeding (AUB) Addisonian crisis Addisons disease Adenomyosis Anxiety and depression Asthma Cardiology follow-up encounter Chest pain Chronic female pelvic pain Diabetes Difficulty swallowing Dysphagia Easy bruising Endometriosis determined by laparoscopy Former smoker Gastric reflux Gastroparesis Graves disease History of diverticulitis History of echocardiogram History of IBS History of left heart catheterization History of steroid therapy History of stress test History of ulceration Low iron Migraine Mild intermittent asthma Restless legs Seizures Shortness of breath on exertion Wears glasses Home Medications albuterol sulfate 90 mcg/actuation aerosol inhaler 1 - 2 puff inhalation Q4H PRN PRN Sob &/Or Wheezing 08/04/20 [History Last Taken Unknown] nitroglycerin 0.3 mg sublingual tablet 0.3 mg sublingual Q5M PRN cp 12/11/20 [History Last Taken Unknown] fremanezumab-vfrm 225 mg/1.5 mL subcutaneous auto-injector (Ajovy) 225 mg subcut QMONTH MIGRAINES 09/20/21 [History Last Taken 07/12/22] lorazepam 1 mg tablet (Ativan) 1 mg PO TID PRN anxiety #12 tabs 12/02/21 [Rx Last Taken 08/08/22] esomeprazole magnesium 40 mg capsule,delayed release (Nexium) 40 mg PO DAILY GERD 12/19/21 [History Last Taken 08/08/22] acarbose 25 mg tablet 25 mg PO TID sugar 08/09/22 [History Last Taken 08/08/22] albuterol sulfate 90 mcg/actuation aerosol inhaler (Ventolin HFA) 2 inh inhalation Q4H PRN sob 08/09/22 [History Last Taken Unknown] buspirone 5 mg tablet 5 mg PO TID ANXIETY 08/09/22 [History Last Taken 08/08/22] divalproex 250 mg tablet,delayed release 250 mg PO UD SEIZURE 08/09/22 [History Last Taken 08/08/22] eletriptan 40 mg tablet 40 mg PO DAILY migraines 08/09/22 [History Last Taken 2 Days Ago ~08/07/22] estradiol 0.0375 mg/24 hr weekly transdermal patch 0.0375 mg transdermal [place] HORMONES 08/09/22 [History Last Taken 08/01/22] fludrocortisone 0.1 mg tablet 0.1 mg PO DAILY ADDISONS 08/09/22 [History Last Taken 08/08/22] fluoxetine 40 mg capsule 40 mg PO DAILY ANXIETY 08/09/22 [History Last Taken 08/08/22] glucagon 1 mg/0.2 mL subcutaneous auto-injector (Gvoke HypoPen 2-Pack) 1 mg subcut DAILY PRN PRN Hypoglycemia 08/09/22 [History Last Taken Unknown] hydrocortisone sod succinate 100 mg solution for injection (Solu-Cortef) 5 - 15 mg IM TID ADDISONS 08/09/22 [History Last Taken 08/09/22] hydroxychloroquine 200 mg tablet 200 mg PO BID ARTHRITIS 08/09/22 [History Last Taken 08/08/22] levothyroxine 137 mcg tablet 137 mcg PO DAILY thyroid 08/09/22 [History Last Taken 08/08/22] tizanidine 4 mg tablet 4 mg PO Q8H PRN Spasms 08/09/22 [History Last Taken 2 Days Ago ~08/07/22] metformin 500 mg tablet 500 mg PO DAILY 09/05/22 [History Last Taken Unknown] hydrocodone-acetaminophen 5-325mg 5mg-325mg 1 tab PO Q4H PRN PRN Pain 2 days #10 TABLETS 11/03/22 [Rx Last Taken Unknown] ondansetron 4 mg disintegrating tablet 8 mg PO Q8H PRN PRN Nausea #20 tabs 11/03/22 [Rx Last Taken Unknown] Allergy/AdvReac Type Severity Reaction Status Date / Time acetaminophen Allergy Anaphylaxis Verified 02/04/23 17:05 [From Excedrin Migraine] aspirin Allergy Anaphylaxis Verified 02/04/23 17:05 [From Excedrin Migraine] azithromycin Allergy Anaphylaxis Verified 02/04/23 17:05 [From Zithromax Z-Ruiz] bacitracin Allergy Swelling Verified 02/04/23 17:05 [From Neosporin ([id number])] bacitracin zinc Allergy Swelling Verified 02/04/23 17:05 [From Neosporin ([id number])] caffeine Allergy Anaphylaxis Verified 02/04/23 17:05 [From Excedrin Migraine] latex Allergy Rash Verified 02/04/23 17:05 neomycin sulfate Allergy Swelling Verified 02/04/23 17:05 [From Neosporin ([id number])] polymyxin B Allergy Swelling Verified 02/04/23 17:05 [From Neosporin ([id number])] Family History Uncle Diabetes Cancer lung Father Diabetes Grandfather CVA (cerebral vascular accident) Cancer lung, unsure additional type Uncle Cancer brain Grandmother Cancer lung and unsure additional type Surgical History History of appendectomy History of section History of laparoscopic-assisted vaginal hysterectomy History of laparoscopy History of left salpingo-oophorectomy History of thyroidectomy History of tubal ligation History of wisdom tooth extraction Hx laparoscopic cholecystectomy Social History Smoking Status: Former smoker ROS ROS ED ROS Narrative Constitutional: Denies fever HEENT: Denies sore throat Neck: Denies neck pain Cardiovascular: Denies chest pain, syncope Respiratory: Denies shortness of breath GI: Endorses nausea, vomiting and abdominal pain : Denies changes in urinary habits Musculoskeletal: Denies muscle or joint pain Neurologic: Endorses seizures Skin denies rash EXAM Physical Exam Narrative Exam Narrative: Nursing triage notes reviewed, Vital signs reviewed Constitutional: please see mdm HENT: MMM Eyes: Pupils equal round and reactive to light, Extraocular muscles intact Neck: No stridor, no JVD, full neck ROM Lungs: Clear to auscultation, No wheezing or rales. No increased work of breathing, no conversational dyspnea, no accessory muscle use, no nasal flaring. No respiratory distress noted Heart: Regular rate and rhythm, No murmurs, No rubs and No gallops, 2+ distal pulses (radial, femoral, posterior tibial) in all extremities Abdomen: Soft, there is no tenderness, rigidity, rebound or guarding, no obvious peritoneal signs, no palpable pulsatile abdominal masses, no auscultated abdominal bruit : No CVAT Extremities: No edema Neuro: Alert and oriented x3, neuro exam at baseline, cranial nerves II through XII are intact. No pain with extraocular muscle movement. There is negative test of skew. Normal speech. 5 of 5 strength in upper and lower extremities in flexion extension. Intact sensation to light touch in upper and lower extremity dermatomes. No truncal or extremity ataxia. No dysdiadochokinesia. Normal gait. 2+ reflexes. No meningeal signs. Negative Babinski. NIH of 0 Skin: No rash or lesions noted Const Vital Signs: 02/04/23 16:48 02/04/23 19:01 02/04/23 22:35 Temperature 97.4 F L Temperature Source Temporal Pulse Rate 103 H 70 97 Respiratory Rate 16 15 Blood Pressure 105/75 111/79 Blood Pressure Mean 85 89 Pulse Ox 97 Oxygen Delivery Method Room Air Room Air MDM MDM MDM Narrative Medical decision making narrative: Chief Complaint: Seizure External records reviewed: Last CT scan of the head was in October 2022 showed no acute process I considered the following differential diagnosis: Hypoglycemia, hyponatremia, infection, eclampsia, syncope, myocardial ischemia, arrhythmia, anemia, electrolyte abnormality, dehydration, medication noncompliance. The patient had no focal neurologic deficits to suggest acute intracranial abnormality. There is no fever, meningeal signs to suggest meningitis or encephalitis. I obtained a broad lab work-up to further elucidate etiology of the patient's complaints. Labs without evidence of significant hyponatremia, hypoglycemia. Patient's valproic acid level is subtherapeutic suggestive of med noncompliance which may have precipitated her seizure. Will dose valproic acid here. test negative making eclampsia less likely. Patient's lactate was persistently elevated despite IV fluids. I attributed this to likely recent seizure. I gave the patient fluids and repeated a lactate level. Lactate up trended for the second time. Given her abdominal pain I was concerned about intra-abdominal pathology or infection. CT scan was negative. No obvious source of infection could be ascertained on exam with labs. Delay in antibiotics secondary to concern for initial seizure. Third lactate continued to uptrend. At this point I was more concerned about sepsis which can also lower the patient's seizure threshold so I faiza blood cultures, give broad-spectrum antibiotics and continue to resuscitate the patient with fluids. At this point do not think the patient's port for home-going. This discussed with the patient she agreed. She should be admitted pending blood cultures, ongoing care and resuscitation. Factors affecting care: History of seizures on Depakote Social determinants of health: Former smoker History obtained from others: Shared decision making: I will have a discussion with the patient and or visitors regarding risk/benefits of further testing or admission. They will be made aware of of the risk/benefits inherent in this decision they will be given the opportunity to voice understanding. Consults: none Lab Data Attestation: I reviewed the patient's lab results. Lab results narrative: CBC without leukocytosis, mild anemia no thrombocytopenia. BMP without evidence of significant electrolyte abnormalities, no anion gap, no acute kidney injury. LFTs show no evidence of hepatobiliary pathology. TSH within normal limits Alcohol level negative Valproic acid subtherapeutic indicative of med noncompliance Lactic acid elevated indicative of poor endorgan perfusion makes seizure more likely test is negative UA without evidence of UTI Labs: Laboratory Results - last 24 hr 02/04/23 02/04/23 02/04/23 17:33 17:33 17:33 WBC 7.8 RBC 4.51 Hgb 11.6 L Hct 37.5 MCV 83.1 MCH 25.7 L MCHC 30.9 L RDW Std Deviation 45.3 H RDW Coeff of Renetta 14.8 H Plt Count 368 MPV 9.7 Sodium 138 Potassium 3.7 Chloride 103 Carbon Dioxide 28.0 Anion Gap 7 BUN 9 Creatinine 0.86 Estim Creat Clear Calc 86.85 Est GFR (MDRD) Af Amer 99 Est GFR (MDRD) Non-Af 82 BUN/Creatinine Ratio 10.4 Glucose 121 H Lactic Acid Calcium 9.0 Total Bilirubin 0.30 AST 13 L ALT 22 Alkaline Phosphatase 62 Total Protein 7.6 Albumin 3.3 Globulin 4.3 H Albumin/Globulin Ratio 0.8 L Lipase 26 TSH 1.14 Urine Color Urine Clarity Urine pH Ur Specific [place] Urine Protein Urine Glucose (UA) Urine Ketones Urine Occult Blood Urine Nitrite Urine Bilirubin Urine Urobilinogen Ur Leukocyte Esterase Urine RBC Urine WBC Ur Squamous Epith Cells Urine Bacteria Urine Mucus Urine Test Urine Opiates Screen Urine Methadone Screen Ur Barbiturates Screen Valproic Acid Ur Phencyclidine Scrn Ur Amphetamines Screen MDMA (Ecstasy) Screen U Benzodiazepines Scrn Urine Cocaine Screen U Cannabinoids Screen Ur Drug Screen Comment Ethyl Alcohol < 3.0 02/04/23 02/04/23 02/04/23 17:33 17:33 19:16 WBC RBC Hgb Hct MCV MCH MCHC RDW Std Deviation RDW Coeff of Renetta Plt Count MPV Sodium Potassium Chloride Carbon Dioxide Anion Gap BUN Creatinine Estim Creat Clear Calc Est GFR (MDRD) Af Amer Est GFR (MDRD) Non-Af BUN/Creatinine Ratio Glucose Lactic Acid 2.8 H* Calcium Total Bilirubin AST ALT Alkaline Phosphatase Total Protein Albumin Globulin Albumin/Globulin Ratio Lipase TSH Urine Color Yellow Urine Clarity Clear Urine pH 7.0 Ur Specific [place] 1.010 Urine Protein Negative Urine Glucose (UA) Normal Urine Ketones Negative Urine Occult Blood 50 H Urine Nitrite Negative Urine Bilirubin Negative Urine Urobilinogen Normal Ur Leukocyte Esterase Negative Urine RBC 0-5 SEEN Urine WBC 0-5 SEEN Ur Squamous Epith Cells 0-5 SEEN Urine Bacteria 0 SEEN Urine Mucus 0 SEEN Urine Test Negative Urine Opiates Screen Urine Methadone Screen Ur Barbiturates Screen Valproic Acid 44 L Ur Phencyclidine Scrn Ur Amphetamines Screen MDMA (Ecstasy) Screen U Benzodiazepines Scrn Urine Cocaine Screen U Cannabinoids Screen Ur Drug Screen Comment Ethyl Alcohol 02/04/23 02/04/23 02/04/23 19:16 20:30 23:51 WBC RBC Hgb Hct MCV MCH MCHC RDW Std Deviation RDW Coeff of Renetta Plt Count MPV Sodium Potassium Chloride Carbon Dioxide Anion Gap BUN Creatinine Estim Creat Clear Calc Est GFR (MDRD) Af Amer Est GFR (MDRD) Non-Af BUN/Creatinine Ratio Glucose Lactic Acid 3.1 H* 4.3 H* Calcium Total Bilirubin AST ALT Alkaline Phosphatase Total Protein Albumin Globulin Albumin/Globulin Ratio Lipase TSH Urine Color Urine Clarity Urine pH Ur Specific [place] Urine Protein Urine Glucose (UA) Urine Ketones Urine Occult Blood Urine Nitrite Urine Bilirubin Urine Urobilinogen Ur Leukocyte Esterase Urine RBC Urine WBC Ur Squamous Epith Cells Urine Bacteria Urine Mucus Urine Test Urine Opiates Screen POSITIVE H Urine Methadone Screen NEGATIVE Ur Barbiturates Screen NEGATIVE Valproic Acid Ur Phencyclidine Scrn NEGATIVE Ur Amphetamines Screen NEGATIVE MDMA (Ecstasy) Screen NEGATIVE U Benzodiazepines Scrn NEGATIVE Urine Cocaine Screen NEGATIVE U Cannabinoids Screen NEGATIVE Ur Drug Screen Comment Ethyl Alcohol Radiography Chest X-Ray - ED: Read by ED Physician Diagnostic Testing: Clinical Impression(s) from Imaging Studies Chest X-Ray 02/04/23 17:45 IMPRESSION: No radiographic evidence of acute cardiopulmonary disease. Electronically Signed: Maykel Berry DO at 18:25 EDT , Abdomen/Pelvis CT 02/04/23 21:17 IMPRESSION: Left adnexal cystic nodules. Electronically Signed: Maykel Berry DO at 23:33 EDT , I have personally reviewed the patient's chest x-ray. Chest x-ray is unremarkable for pulmonary edema, pneumothorax, pneumonia or focal cardiopulmonary abnormality. EKG Initial EKG: Attestation: I personally reviewed and interpreted this EKG as follows: Comments: EKG with sinus tachycardia, normal intervals, no STEMI. No WPW, no Brugada, no ARVD Discharge Plan Triage Chief Complaint: Seizure ED Provider: Elfego Anna Dx/Rx/DC Orders Prescriptions: No Action nitroglycerin 0.3 mg tablet, sublingual 0.3 mg sublingual Q5M PRN (Reason: cp) Rx Instructions: do not exceed 3 doses per episode albuterol sulfate 1 INHALER inhaler 1 - 2 puff INHALATION Q4H PRN PRN (Reason: Sob &/Or Wheezing) Ajovy Autoinjector 225 mg/1.5 mL Auto-Injector 225 mg SUBCUT QMONTH lorazepam [Ativan] 1 mg tablet 1 mg PO TID PRN (Reason: anxiety) Qty: 12 0RF esomeprazole magnesium [Nexium] 40 mg Capsule,Delayed Release(Dr/Ec) 40 mg PO DAILY Solu-Cortef 100 mg recon soln 5 - 15 mg IM TID fluoxetine 40 mg capsule 40 mg PO DAILY Label Comments: Take 1 capsule by mouth once daily. buspirone 5 mg tablet 5 mg PO TID Label Comments: TAKE 1 TABLET BY MOUTH THREE TIMES DAILY levothyroxine 137 mcg tablet 137 mcg PO DAILY Label Comments: Take 1 tablet by mouth once daily. divalproex 250 mg tablet,delayed release (DR/EC) 250 mg PO UD Label Comments: Take 1 tablet by mouth every morning AND TAKE 2 tablets every evening. tizanidine 4 mg tablet 4 mg PO Q8H PRN (Reason: Spasms) Label Comments: TAKE 1 TABLET BY MOUTH EVERY 8 HOURS NEEDED hydroxychloroquine 200 mg tablet 200 mg PO BID Label Comments: Take 1 tablet by mouth twice daily. albuterol sulfate [Ventolin HFA] 90 mcg/actuation HFA aerosol inhaler 2 inh INHALATION Q4H PRN (Reason: sob) Label Comments: Inhale 2 Puffs as instructed every 4 hours as needed. fludrocortisone 0.1 mg tablet 0.1 mg PO DAILY Label Comments: TAKE 1 TABLET BY MOUTH EVERY DAY acarbose 25 mg tablet 25 mg PO TID Label Comments: TAKE 1 TABLET THREE TIMES DAILY eletriptan 40 mg tablet 40 mg PO DAILY Label Comments: Take 1 tablet at the onset of migraine. Repeat 1 dose in 2 hours, if needed. estradiol 0.0375 mg/24 hr patch weekly 0.0375 mg transdermal [place] Label Comments: Apply 1 Patch as directed one time a week. Gvoke HypoPen 2-Pack 1 mg/0.2 mL auto-injector 1 mg SUBCUT DAILY PRN PRN (Reason: Hypoglycemia) Label Comments: Inject 1 mg subcutaneously as needed. metformin 500 mg Tablet 500 mg PO DAILY hydrocodone-acetaminophen [hydrocodone-acetaminophen] 5-325 mg tablet 1 tab PO Q4H PRN PRN (Reason: Pain) 2 Days Qty: 10 0RF ondansetron [ondansetron] 4 mg tablet,disintegrating 8 mg PO Q8H PRN PRN (Reason: Nausea) Qty: 20 0RF Primary Care Provider: Kevin Stauffer Referrals: Kevin Stauffer MD [Primary Care Provider] -
--- NOTE | 2023-02-04 17:20 | EKG12_ITS ---
Test Reason : SEIZERS Blood Pressure : / mmHG Vent. Rate : 109 BPM Atrial Rate : 109 BPM P-R Int : 156 ms QRS Dur : 092 ms QT Int : 332 ms P-R-T Axes : 037 027 040 degrees QTc Int : 447 ms Sinus tachycardia Nonspecific ST and T wave abnormality Abnormal ECG When compared with ECG of 31-OCT-2022 20:25, Vent. rate has increased BY 37 BPM Nonspecific T wave abnormality now evident in Lateral leads Confirmed by AFRICA SOLORZANO ([id number]), material expeditor SOILA SORIANO ([id number]) on 02/08/2023 1:40:11 PM Referred By: Confirmed By:AFRICA SOLORZANO
[2023-02-04] MEDS: 0.9% Normal Saline 1,000 ML 1000 ML IV (17:42)
[2023-02-04] MEDS: Metoclopramide 10 MG/2 ML Vial 5 MG IV (17:42)
[2023-02-04] MEDS: Hydrocortisone Sod Succinate 100 MG/2 ML Vial IV (17:42)
--- NOTE | 2023-02-04 17:45 | RAD_ITS ---
INDICATION: seizure r/o PNA EXAMINATION/TECHNIQUE: X-RAY - XR Chest 1 View COMPARISON: October 29, 2022. FINDINGS: LINES/DEVICES: None. LUNGS: No consolidation, edema or effusion. No pneumothorax. MEDIASTINUM AND CARDIOVASCULAR STRUCTURES: Cardiac silhouette not enlarged. Central airways and mediastinal contour are unremarkable. BONES AND SOFT TISSUES: Unremarkable. RAD/Chest 1 View (Portable) IMPRESSION: No radiographic evidence of acute cardiopulmonary disease. Electronically Signed: Maykel Berry DO at 18:25 EDT ,
[2023-02-04 17:49] LABS: Hematocrit 37.5 % (37-47); Hemoglobin 11.6 g/dL (12.0-15.0); Mean Corp Hgb Conc 30.9 g/dL (32-36); Mean Corpuscular Hgb 25.7 pg (27.0-32.0); Mean Corpuscular Volume 83.1 fL (81-99); Mean Platelet Vol. 9.7 fl (6.2-12.0); Platelet Count 368 K/mm3 (150-450); RBC Distribution Width CV 14.8 % (11.6-14.6); RBC Distribution Width SD 45.3 fl (35.1-43.9); Red Blood Count 4.51 M/mm3 (4.2-5.4); White Blood Count 7.8 K/mm3 (4.4-11.0)
[2023-02-04 18:11] LABS: ALB/GLOB Ratio 0.8 RATIO (0.9-2.4); AST(SGOT) 13 U/L (15-37); Alanine Aminotransfer ALT/SGPT 22 U/L (13-56); Albumin, Serum 3.3 g/dL (3.2-5.0); Alkaline Phosphatase 62 U/L (45-117); Anion Gap 7 (5-15); BUN 9 mg/dL (7-18); BUN/Creat Ratio 10.4 RATIO (10-20); Chloride 103 mmol/L (98-107); Creatinine, Serum 0.86 mg/dL (0.55-1.02); EST Glomerular Filtration Rate 82 mL/min (>60); Est Glom Filt Rate - Afr Amer 99 mL/min (>60); Estimated Creatinine Clearance 86.85 ml/min; Globulin 4.3 g/dL (2.2-4.2); Glucose 121 mg/dL (74-106); Lipase 26 U/L (13-75); Potassium 3.7 mmol/L (3.5-5.1); Protein, Total 7.6 g/dL (6.4-8.2); Sodium Level 138 mmol/L (136-145); Thyroid Stim Hormone (TSH) 1.14 uIU/mL (0.358-3.74)
[2023-02-04] MEDS: Famotidine 200 MG/20 ML MDV 20 MG in 0.9% Normal Saline (Pres. free 8 ML 300 MG IV (18:25)
[2023-02-04] MEDS: Morphine 2 MG/ML Syringe IV (18:25)
[2023-02-04 18:30] LABS: Alcohol, Blood (Medical)-Serum < 3.0 mg/dL
[2023-02-04 18:31] LABS: Lactic Acid 2.8 mmol/L (0.4-1.9); Valproic Acid (Depakene) Level 44 ug/mL (50-100)
[2023-02-04 19:01] VITALS: BP 105/75; PULSE 70; RESP 15; O2SAT 97
[2023-02-04 19:21] LABS: Bacteria 0 SEEN /hpf (None Seen); Mucous, Urine 0 SEEN /hpf (<or=2+)
[2023-02-04 19:23] LABS: Color, Urine Yellow (Yellow); Glucose, Dipstick Normal (Normal); Ketone-Dipstick Negative (Negative); Leukocyte Esterase-Dipstick Negative /ul (Negative); Nitrite-Dipstick Negative (Negative); Occult Blood-Urine 50 /ul (Negative); Protein-Dipstick Negative (Negative); Urine Bilirubin Dipstick Negative (Negative); Urine Clarity Clear (Clear); Urine Urobilinogen Normal (Normal)
[2023-02-04 19:27] LABS: White Blood Cells 0-5 SEEN /hpf (0-5)
[2023-02-04 19:28] LABS: Red Blood Cells-Urine 0-5 SEEN /hpf (0-5); Squamous Epithelial Cells - UA 0-5 SEEN /hpf (5-10)
[2023-02-04 19:29] LABS: Internal QC Validated? YES +Cl - CLEAR BKGD; Pregnancy, Urine Negative Negative
[2023-02-04] MEDS: Divalproex Sodium 250 MG Tablet PO (19:30)
[2023-02-04 19:38] LABS: Amphetamine Urine VISTA NEGATIVE (<1000 ng/mL); Barbiturate Urine VISTA NEGATIVE (< 200 ng/mL); Benzodiazepine Urine VISTA NEGATIVE (< 200 ng/mL); Cocaine Urine VISTA NEGATIVE (< 300 ng/mL); Ecstacy Urine VISTA NEGATIVE (< 500 ng/mL); Methadone Urine VISTA NEGATIVE (< 300 ng/mL); PCP Urine VISTA NEGATIVE (< 25 ng/mL); THC Urine VISTA NEGATIVE (< 50 ng/mL); Vista UDS pH Range 7
[2023-02-04] MEDS: 0.9% Normal Saline 1,000 ML 999 ML IV (20:27)
[2023-02-04] MEDS: Morphine 4 MG/ML Syringe IV (20:28)
--- NOTE | 2023-02-04 21:17 | CT_ITS ---
STUDY: CT ABDOMEN AND PELVIS WITH CONTRAST REASON FOR EXAM: Female, 27 years old. abdominal pain RADIATION DOSAGE (If Supplied By Facility): CTDIvol = ( 15.01 ) mGy, DLP = ( 849.78 ) mGycm TECHNIQUE: Transaxial images were obtained from the dome of the diaphragm to the symphysis pubis without oral contrast. Oral and amp; IV Gastrografin and amp; 100mL Isovue-370 was administered. Sagittal and coronal images were reconstructed. Individualized dose optimization techniques were used for this CT. COMPARISON: 11/03/2022 FINDINGS: The visualized lung bases are unremarkable. The visualized portions of the heart are within normal limits. Normal liver. Nonvisualization of the gallbladder. No significant dilatation of the extrahepatic biliary system. Normal spleen. Normal pancreas. Normal bilateral adrenal glands. Normal right kidney. Normal left kidney. Normal visualized stomach. Normal small intestine. Normal colon. The appendix is nonvisualized. Normal abdominal aorta. Normal inferior vena cava. Normal retroperitoneum. Normal urinary bladder. Left adnexal cystic nodules up to 2 cm. Normal abdominal wall. Normal osseous structures. CT/Abdomen/Pelvis WITH Contrast IMPRESSION: Left adnexal cystic nodules. Electronically Signed: Maykel Berry DO at 23:33 EDT Reading Location ID and State: [facility] / [place] Tel [phone], Service support ,
[2023-02-04 21:19] LABS: Lactic Acid 3.1 mmol/L (0.4-1.9)
[2023-02-04 21:40] LABS: Reflex Lactate? Y
[2023-02-04 22:35] VITALS: BP 111/79; PULSE 97
[2023-02-04] MEDS: HYDROmorphone 0.5 MG/0.5 ML SYRINGE IV (23:35)
[2023-02-05 00:41] LABS: Lactic Acid 4.3 mmol/L (0.4-1.9)
[2023-02-05 00:41] LABS: Reflex Lactate? Y
--- NOTE | 2023-02-05 01:06 | HP.PCM.HOS_ITS ---
HPI - General General Date of Admission: 02/05/23 Date of Service: 02/05/23 Chief Complaint: seizures HPI Narrative SONIA SZYMANSKI, is a 27 F with a significant history of Meriden's Disease, Grave's Disease, migraines, seizures, and hypothyroidism who presented to the emergency department with seizures. Patient reported that 3 days prior to presentation she had malaise, fatigue and Vertigo. She has been very lethargic and she has been sleeping a lot more than usual. On the day of presentation she had a seizure with postictal confusion. Patient was brought to emergency department by paramedics. Reportedly on the morning of the day of presentation she missed her Depakote. Patient complains of excruciating pain at her epigastrium [facility] Medical History (Updated 02/05/23 @ 01:[address] Kev Caldwell MD) Abnormal uterine bleeding (AUB) Addisonian crisis Addisons disease Adenomyosis Anxiety and depression Asthma Cardiology follow-up encounter Chest pain Chronic female pelvic pain Diabetes Difficulty swallowing Dysphagia Easy bruising Endometriosis determined by laparoscopy Former smoker Gastric reflux Gastroparesis Graves disease History of diverticulitis History of echocardiogram History of IBS History of left heart catheterization History of steroid therapy History of stress test History of ulceration Low iron Migraine Mild intermittent asthma Restless legs Seizures Shortness of breath on exertion Wears glasses Home Medications albuterol sulfate 90 mcg/actuation aerosol inhaler 1 - 2 puff inhalation Q4H PRN PRN Sob &/Or Wheezing 08/04/20 [History Last Taken Unknown] nitroglycerin 0.3 mg sublingual tablet 0.3 mg sublingual Q5M PRN cp 12/11/20 [History Last Taken Unknown] fremanezumab-vfrm 225 mg/1.5 mL subcutaneous auto-injector (Ajovy) 225 mg subcut QMONTH MIGRAINES 09/20/21 [History Last Taken 07/12/22] lorazepam 1 mg tablet (Ativan) 1 mg PO TID PRN anxiety #12 tabs 12/02/21 [Rx Last Taken 08/08/22] esomeprazole magnesium 40 mg capsule,delayed release (Nexium) 40 mg PO DAILY GERD 12/19/21 [History Last Taken 08/08/22] acarbose 25 mg tablet 25 mg PO TID sugar 08/09/22 [History Last Taken 08/08/22] albuterol sulfate 90 mcg/actuation aerosol inhaler (Ventolin HFA) 2 inh inhalation Q4H PRN sob 08/09/22 [History Last Taken Unknown] buspirone 5 mg tablet 5 mg PO TID ANXIETY 08/09/22 [History Last Taken 08/08/22] divalproex 250 mg tablet,delayed release 250 mg PO UD SEIZURE 08/09/22 [History Last Taken 08/08/22] eletriptan 40 mg tablet 40 mg PO DAILY migraines 08/09/22 [History Last Taken 2 Days Ago ~08/07/22] estradiol 0.0375 mg/24 hr weekly transdermal patch 0.0375 mg transdermal MO HORMONES 08/09/22 [History Last Taken 08/01/22] fludrocortisone 0.1 mg tablet 0.1 mg PO DAILY ADDISONS 08/09/22 [History Last Taken 08/08/22] fluoxetine 40 mg capsule 40 mg PO DAILY ANXIETY 08/09/22 [History Last Taken 08/08/22] glucagon 1 mg/0.2 mL subcutaneous auto-injector (Gvoke HypoPen 2-Pack) 1 mg capps bcut DAILY PRN PRN Hypoglycemia 08/09/22 [History Last Taken Unknown] hydrocortisone sod succinate 100 mg solution for injection (Solu-Cortef) 5 - 15 mg IM TID ADDISONS 08/09/22 [History Last Taken 08/09/22] hydroxychloroquine 200 mg tablet 200 mg PO BID ARTHRITIS 08/09/22 [History Last Taken 08/08/22] levothyroxine 137 mcg tablet 137 mcg PO DAILY thyroid 08/09/22 [History Last Taken 08/08/22] tizanidine 4 mg tablet 4 mg PO Q8H PRN Spasms 08/09/22 [History Last Taken 2 Days Ago ~08/07/22] metformin 500 mg tablet 500 mg PO DAILY 09/05/22 [History Last Taken Unknown] hydrocodone-acetaminophen 5-325mg 5mg-325mg 1 tab PO Q4H PRN PRN Pain 2 days #10 TABLETS 11/03/22 [Rx Last Taken Unknown] ondansetron 4 mg disintegrating tablet 8 mg PO Q8H PRN PRN Nausea #20 tabs 11/03/22 [Rx Last Taken Unknown] Allergy/AdvReac Type Severity Reaction Status Date / Time acetaminophen Allergy Anaphylaxis Verified 02/04/23 17:05 [From Excedrin Migraine] aspirin Allergy Anaphylaxis Verified 02/04/23 17:05 [From Excedrin Migraine] azithromycin Allergy Anaphylaxis Verified 02/04/23 17:05 [From Zithromax Z-Ruiz] bacitracin Allergy Swelling Verified 02/04/23 17:05 [From Neosporin ([id number])] bacitracin zinc Allergy Swelling Verified 02/04/23 17:05 [From Neosporin ([id number])] caffeine Allergy Anaphylaxis Verified 02/04/23 17:05 [From Excedrin Migraine] latex Allergy Rash Verified 02/04/23 17:05 neomycin sulfate Allergy Swelling Verified 02/04/23 17:05 [From Neosporin ([id number])] polymyxin B Allergy Swelling Verified 02/04/23 17:05 [From Neosporin ([id number])] Family History Uncle Diabetes Cancer lung Father Diabetes Grandfather CVA (cerebral vascular accident) Cancer lung, unsure additional type Uncle Cancer brain Grandmother Cancer lung and unsure additional type Surgical History History of appendectomy History of section History of laparoscopic-assisted vaginal hysterectomy History of laparoscopy History of left salpingo-oophorectomy History of thyroidectomy History of tubal ligation History of wisdom tooth extraction Hx laparoscopic cholecystectomy Social History Smoking Status: Former smoker ROS ROS Narrative Pertinent positives and pertinent negatives as noted in HPI. All other systems were reviewed and are negative Vital Signs Vital Signs Vital Signs: 02/04/23 16:48 02/04/23 19:01 02/04/23 22:35 Temperature 97.4 F L Temperature Source Temporal Pulse Rate 103 H 70 97 Respiratory Rate 16 15 Blood Pressure 105/75 111/79 Blood Pressure Mean 85 89 Pulse Ox 97 Oxygen Delivery Method Room Air Room Air Weight Weight: 87.4 kg Body Mass Index (BMI) 32.1 Physical Exam Narrative Physical exam: General: Well-nourished, well-developed. Head: Normocephalic, atraumatic, no tenderness Eyes: Vision is grossly intact. EOMI ENT, no trauma, moist mucous membranes, no rhinorrhea Neck: Nontender, No thyromegaly. CVS: Regular rate and rhythm. S1-S2 present. No murmur, gallop or rub. Respiratory : clear to auscultation bilaterally, chest wall nontender Abdomen: Soft, nontender, nondistended, normal bowel sounds, no masses : Deferred Back: Nontender, no CVA tenderness, no midline spinal tenderness, deformities, step-offs Extremities: Nontender full range of motion, no trauma Skin: Normal color, no trauma, abrasions Neuro: Alert, oriented, cranial nerves II through XII grossly intact. Psychiatry: Normal mood. Normal affect. Not depressed. Not anxious. Results Lab / Micro Data Result Diagrams: 02/04/23 17:33 02/04/23 17:33 Labs: Laboratory Results - last 24 hr 02/04/23 17:33: WBC 7.8, RBC 4.51, Hgb 11.6 L, Hct 37.5, MCV 83.1, MCH 25.7 L, MCHC 30.9 L, RDW Std Deviation 45.3 H, RDW Coeff of Renetta 14.8 H, Plt Count 368, MPV 9.7 02/04/23 17:33: Sodium 138, Potassium 3.7, Chloride 103, Carbon Dioxide 28.0, Anion Gap 7, BUN 9, Creatinine 0.86, Estim Creat Clear Calc 86.85, Est GFR (MDRD) Af Amer 99, Est GFR (MDRD) Non-Af 82, BUN/Creatinine Ratio 10.4, Glucose 121 H, Calcium 9.0, Total Bilirubin 0.30, AST 13 L, ALT 22, Alkaline Phosphatase 62, Total Protein 7.6, Albumin 3.3, Globulin 4.3 H, Albumin/Globulin Ratio 0.8 L , Lipase 26, TSH 1.14 02/04/23 17:33: Ethyl Alcohol < 3.0 02/04/23 17:33: Lactic Acid 2.8 H* 02/04/23 17:33: Valproic Acid 44 L 02/04/23 19:16: Urine Color Yellow, Urine Clarity Clear, Urine pH 7.0, Ur Specific Hayes 1.010, Urine Protein Negative, Urine Glucose (UA) Normal, Urine Ketones Negative, Urine Occult Blood 50 H, Urine Nitrite Negative, Urine Bilirubin Negative, Urine Urobilinogen Normal, Ur Leukocyte Esterase Negative, Urine RBC 0-5 SEEN, Urine WBC 0-5 SEEN, Ur Squamous Epith Cells 0-5 SEEN, Urine Bacteria 0 SEEN, Urine Mucus 0 SEEN, Urine Test Negative 02/04/23 19:16: Urine Opiates Screen POSITIVE H, Urine Methadone Screen NEGATIVE, Ur Barbiturates Screen NEGATIVE, Ur Phencyclidine Scrn NEGATIVE, Ur Amphetamines Screen NEGATIVE, MDMA (Ecstasy) Screen NEGATIVE, U Benzodiazepines Scrn NEGATIVE, Urine Cocaine Screen NEGATIVE, U Cannabinoids Screen NEGATIVE, Ur Drug Screen Comment 02/04/23 20:30: Lactic Acid 3.1 H* 02/04/23 23:51: Lactic Acid 4.3 H* Radiology Impression Chest X-Ray 02/04/23 17:45 IMPRESSION: No radiographic evidence of acute cardiopulmonary disease. Electronically Signed: Maykel Berry DO at 18:25 EDT Reading Location ID and State: [facility] / [place] Tel [phone], Service support , Abdomen/Pelvis CT 02/04/23 21:17 IMPRESSION: Left adnexal cystic nodules. Electronically Signed: Maykel Berry DO at 23:33 EDT , Assessment & Plan Assessment/Plan (1) Epigastric pain: (2) Seizure disorder: (3) Nausea & vomiting: (4) Graves disease: (5) Hypothyroidism: PLAN: Plan Davonte's disease Unclear whether flare up or not. On presentation patient was not hypotensive We will check a.m. cortisol level. Patient think that she received steroids from paramedics. Hypothyroidism status post thyroidectomy Patient hypothyroidism secondary to Graves' disease. Will check a TSH level. Continue home Synthroid Breakthrough seizures Depakote level mildly low. Received Depakote 250 mg p.o. x1 at the ED Discussed with ED physician to consult neurologist for further recommendations. Upon further discussions with ED physician was informed that patient will be transferred to another hospital. Lactic acidosis Initial lactic acid of 2.8. Patient received IV fluid boluses and her lactic rather went up to 4.3 on repeat. No clear source of infection at this time. Of note patient's does not meet SIRS criteria. Admittedly patient is immunocompromise but been on steroids. However patient does not look sick. We will hold off further antibiotics at this time. Trend lactic acid. Await blood cultures Abdominal pain Unclear etiology. Cannot rule out side effects from acarbose In the past patient followed up with GI Protonix ordered DVT prophylaxis: Subcutaneous Lovenox ordered Charges/Coding Multi Select Codes Visit Charges Office Visit/Consults: 01891 ED Visit; Moderate Severity
[2023-02-05 01:10] VITALS: BP 110/77; PULSE 109; RESP 20
[2023-02-05 01:21] VITALS: BP 113/69; PULSE 105; RESP 17; TEMP 36.4
[2023-02-05] MEDS: Ketorolac 15 MG/ML Vial IV (01:26)
[2023-02-05] MEDS: 0.9% Normal Saline 1,000 ML 999 ML IV (03:31)
[2023-02-05 03:52] VITALS: BP 110/71; PULSE 110; RESP 18; O2SAT 98
[2023-02-05] MEDS: HYDROmorphone 0.5 MG/0.5 ML SYRINGE IV (04:54)
[2023-02-05 05:15] VITALS: BP 110/69; PULSE 101; RESP 16; TEMP 36.7; O2SAT 98
[2023-02-05 05:33] VITALS: BP 117/77; PULSE 94; RESP 16; O2SAT 98
--- NOTE | 2023-02-05 05:55 | ED.RN ---
ACCEPTED AT [facility] 8[address] BED [address] ETA [id number]
== END 2023-02-05 07:08 | disposition short-term general hospital (02) ==
PROVIDERS: Emergency Provider Emergency Medicine; PCP Family Medicine; Visit Provider Emergency Medicine
DX: R10.13 Epigastric pain (principal); G40.909 Epilepsy, unspecified, not intractable, without status epilepticus; E11.9 Type 2 diabetes mellitus without complications; E89.0 Postprocedural hypothyroidism; E05.00 Thyrotoxicosis with diffuse goiter without thyrotoxic crisis or storm; J45.909 Unspecified asthma, uncomplicated; F41.9 Anxiety disorder, unspecified; F32.A Depression, unspecified; Z79.84 Long term (current) use of oral hypoglycemic drugs; Z79.899 Other long term (current) drug therapy; Z87.891 Personal history of nicotine dependence
CPT/HCPCS: 71045; 74177; 80053; 80164; 80307; 81001; 81025; 82077; 83605; 83690; 84443; 85027; 87040; 93005; 96365; 96366; 96367; 96375; 96376; 99285; J7030; J7040; Q9967; A4216; J3490

== ENCOUNTER 2023-02-12 10:26 | Emergency (ER) | payer MEDICAID, SELFPAY ==
[2023-02-12 10:27] VITALS: BP 115/74; PULSE 108; RESP 16; TEMP 37; O2SAT 100; BMI 32.3
[2023-02-12] MEDS: 0.9% Normal Saline 1,000 ML 1000 ML IV (11:24)
[2023-02-12] MEDS: Ondansetron 4 MG/2 ML Vial IV (11:24)
[2023-02-12] MEDS: Morphine 4 MG/ML Syringe IV (11:33)
--- NOTE | 2023-02-12 11:33 | EX.ED.DYSGE1 ---
HPI <TRUDI Quinones - Last Filed: 02/12/23 14:37> History of Present Illness Chief Complaint: Dizziness Narrative Narrative: Patient presenting today with complaints of fatigue, lightheadedness, and feeling like she is having an Freeborn's crisis. Patient was recently admitted to the hospital last Monday at [facility] with similar symptoms as well as having a seizure and was kept for 5 days due to lactic acidosis and elevated liver enzymes. Patient went home on Monday because she was feeling better and states that yesterday she began to feel symptomatic again. She reports right upper quadrant pain that she states happens whenever she is having an Davonte's crisis. She states she was told that she had a swollen liver after having a RUQ ultrasound performed while in the hospital. She also reports having elevated liver enzymes at that time. She has had multiple episodes of nausea, vomiting, and diarrhea since yesterday. She denies any fever, chills, chest pain, shortness of breath, urinary symptoms, hematemesis. PFSH <TRUDI Quinones - Last Filed: 02/12/23 14:37> [facility] Medical History Abnormal uterine bleeding (AUB) Addisonian crisis Addisons disease Adenomyosis Anxiety and depression Asthma Cardiology follow-up encounter Chest pain Chronic female pelvic pain Diabetes Difficulty swallowing Dysphagia Easy bruising Endometriosis determined by laparoscopy Former smoker Gastric reflux Gastroparesis Graves disease History of diverticulitis History of echocardiogram History of IBS History of left heart catheterization History of steroid therapy History of stress test History of ulceration Low iron Migraine Mild intermittent asthma Restless legs Seizures Shortness of breath on exertion Wears glasses Home Medications albuterol sulfate 90 mcg/actuation aerosol inhaler 1 - 2 puff inhalation Q4H PRN PRN Sob &/Or Wheezing 08/04/20 [History Last Taken Unknown] nitroglycerin 0.3 mg sublingual tablet 0.3 mg sublingual Q5M PRN cp 12/11/20 [History Last Taken Unknown] fremanezumab-vfrm 225 mg/1.5 mL subcutaneous auto-injector (Ajovy) 225 mg subcut QMONTH MIGRAINES 09/20/21 [History Last Taken 07/12/22] lorazepam 1 mg tablet (Ativan) 1 mg PO TID PRN anxiety #12 tabs 12/02/21 [Rx Last Taken 08/08/22] esomeprazole magnesium 40 mg capsule,delayed release (Nexium) 40 mg PO DAILY GERD 12/19/21 [History Last Taken 08/08/22] acarbose 25 mg tablet 25 mg PO TID sugar 08/09/22 [History Last Taken 08/08/22] albuterol sulfate 90 mcg/actuation aerosol inhaler (Ventolin HFA) 2 inh inhalation Q4H PRN sob 08/09/22 [History Last Taken Unknown] buspirone 5 mg tablet 5 mg PO TID ANXIETY 08/09/22 [History Last Taken 08/08/22] eletriptan 40 mg tablet 40 mg PO DAILY migraines 08/09/22 [History Last Taken 2 Days Ago ~08/07/22] estradiol 0.0375 mg/24 hr weekly transdermal patch 0.0375 mg transdermal MO HORMONES 08/09/22 [History Last Taken 08/01/22] fludrocortisone 0.1 mg tablet 0.1 mg PO DAILY ADDISONS 08/09/22 [History Last Taken 08/08/22] fluoxetine 40 mg capsule 40 mg PO DAILY ANXIETY 08/09/22 [History Last Taken 08/08/22] glucagon 1 mg/0.2 mL subcutaneous auto-injector (GvVYRE Limited HypoPen 2-Pack) 1 mg subcut DAILY PRN PRN Hypoglycemia 08/09/22 [History Last Taken Unknown] hydrocortisone sod succinate 100 mg solution for injection (Solu-Cortef) 5 - 15 mg IM TID ADDISONS 08/09/22 [History Last Taken 08/09/22] hydroxychloroquine 200 mg tablet 200 mg PO BID ARTHRITIS 08/09/22 [History Last Taken 08/08/22] levothyroxine 137 mcg tablet 137 mcg PO DAILY thyroid 08/09/22 [History Last Taken 08/08/22] tizanidine 4 mg tablet 4 mg PO Q8H PRN Spasms 08/09/22 [History Last Taken 2 Days Ago ~08/07/22] metformin 500 mg tablet 500 mg PO DAILY 09/05/22 [History Last Taken Unknown] hydrocodone-acetaminophen 5-325mg 5mg-325mg 1 tab PO Q4H PRN PRN Pain 2 days #10 TABLETS 11/03/22 [Rx Last Taken Unknown] ondansetron 4 mg disintegrating tablet 8 mg PO Q8H PRN PRN Nausea #20 tabs 11/03/22 [Rx Last Taken Unknown] ondansetron 4 mg disintegrating tablet 4 mg PO Q8H PRN PRN Nausea #10 tabs 02/12/23 [Rx Last Taken Unknown] Allergy/AdvReac Type Severity Reaction Status Date / Time acetaminophen Allergy Anaphylaxis Verified 02/12/23 10:29 [From Excedrin Migraine] aspirin Allergy Anaphylaxis Verified 02/12/23 10:29 [From Excedrin Migraine] azithromycin Allergy Anaphylaxis Verified 02/12/23 10:29 [From Zithromax Z-Ruiz] bacitracin Allergy Swelling Verified 02/12/23 10:29 [From Neosporin ([id number])] bacitracin zinc Allergy Swelling Verified 02/12/23 10:29 [From Neosporin ([id number])] caffeine Allergy Anaphylaxis Verified 02/12/23 10:29 [From Excedrin Migraine] latex Allergy Rash Verified 02/12/23 10:29 neomycin sulfate Allergy Swelling Verified 02/12/23 10:29 [From Neosporin ([id number])] polymyxin B Allergy Swelling Verified 02/12/23 10:29 [From Neosporin ([id number])] Family History Uncle Diabetes Cancer lung Father Diabetes Grandfather CVA (cerebral vascular accident) Cancer lung, unsure additional type Uncle Cancer brain Grandmother Cancer lung and unsure additional type Surgical History History of appendectomy History of section History of laparoscopic-assisted vaginal hysterectomy History of laparoscopy History of left salpingo-oophorectomy History of thyroidectomy History of tubal ligation History of wisdom tooth extraction Hx laparoscopic cholecystectomy Social History Smoking Status: Former smoker ROS <TRUDI Quinones - Last Filed: 02/12/23 14:37> ROS ED Constitutional Constitutional ED: Denies chills, fever(s) or sweats Eyes Eyes: Denies change in vision Cardiovascular Cardiovascular: Denies chest pain or palpitations Respiratory/Chest Respiratory/Chest: Denies cough or dyspnea Gastrointestinal Gastrointestinal: Reports abdominal pain, diarrhea, nausea and vomiting; Denies constipation Genitourinary Genitourinary ED: Denies dysuria, hematuria or urinary urgency Musculoskeletal Musculoskeletal: Denies arthralgias or myalgias Integumentary Denies abscess, Abrasions or rash Neurologic Neurologic: Reports dizziness and weakness Psychiatric Psychiatric: Denies anxiety, depression, suicidal ideation or suicidal thoughts EXAM <TRUDI Quinones - Last Filed: 02/12/23 14:37> Physical Exam Const Vital Signs: 02/12/23 10:27 02/12/23 12:43 Temperature 98.6 F Temperature Source Oral Pulse Rate 108 H 84 Respiratory Rate 16 16 Blood Pressure 115/74 Blood Pressure Mean 87 Pulse Ox 100 Oxygen Delivery Method Room Air Positive well nourished, well developed and no apparent distress General Appearance ED: well developed HEENT Reports normocephalic and head/scalp atraumatic Mouth ED: Yes moist mucous membranes normal Eyes PERRL and EOMs intact bilaterally Neck full ROM and supple Chest Wall inspection of chest normal Resp normal respiratory effort and clear to auscultation bilaterally Cardio regular rate and regular rhythm GI non-distended and no masses GI Narrative: Right upper quadrant tenderness to palpation. Palpation: soft Back/Spine normal ROM and normal to inspection Extremity normal to inspection and full ROM Neuro oriented x3, CN's II-XII intact bilaterally, moves all extremities, no focal motor deficits and no sensory deficits noted Sensorium / Orientation: awake and alert Psych mental status grossly normal and thought process normal Skin no rashes or lesions noted and no wounds <Dr. Charleen Gauman MD - Last Filed: 02/12/23 15:46> Physical Exam Const Vital Signs: 02/12/23 10:27 02/12/23 12:43 Temperature 98.6 F Temperature Source Oral Pulse Rate 108 H 84 Respiratory Rate 16 16 Blood Pressure 115/74 Blood Pressure Mean 87 Pulse Ox 100 Oxygen Delivery Method Room Air MDM <TRUDI Quinones - Last Filed: 02/12/23 14:37> MDM MDM Narrative Medical decision making narrative: Patient presenting today with fatigue, lightheadedness, RUQ pain abdominal pain, fatigue, nausea, vomiting, and diarrhea that she has had since yesterday. Patient presented here to the ED 02/04 due to a seizure and vomiting and was found to have up-trending lactic acidosis and was ultimately transferred to [facility] where she stayed until Monday. Patient reported having an inflamed liver that was found on RUQ US while in the hospital. We have obtained this report, it shows evidence of a cholecystectomy but otherwise was unremarkable. Patient reports having elevated LFTs and was ultimately taken off of Depakote and put on Vimpat. We have not found any record of patient having elevated LFTs as it was not documented during her hospital visit. However, it was documented in her recent PCP note from last week and she does have an ALT here of 71. Otherwise, labs are unremarkable and lactic acid is WNL. She reports that the hospital told her to discontinue her 20 mg dose Zoloft completely due to her elevated LFTs. Her psychiatrist has been trying to wean her off of this slowly. We have encouraged her that it is dangerous to abruptly discontinue this medication and that she should go back on it until she sees her psychiatrist. She has been given IV fluids, Zofran, Ativan, and morphine here. Recent PCP note states that patient has been referred to pain management for her chronic right upper quadrant pain. I do not feel that any imaging is needed today as patient recently had a CT of her abdomen and pelvis that was unremarkable on 02/04 and recently had a RUQ US that was unremarkable. On reexamination patient is feeling much better. She states she still has leftover OxyContin at home for her pain. I have given her a prescription for Zofran. Her main complaint was feeling fatigued, this could be due to her recently being in the hospital for several days. I have encouraged her to get plenty of rest. She has had no vomiting or diarrhea here in the ED. She is to follow-up with her PCP tomorrow to make an appointment. She has been given return instructions will be discharged home in stable condition. She is comfortable with plan. Lab Data Attestation: I reviewed the patient's lab results. Lab results narrative: Hemoglobin 11.4, anion gap 4, ALT 71 Labs: Laboratory Results - last 24 hr 02/12/23 02/12/23 02/12/23 11:20 11:20 11:20 WBC 7.4 RBC 4.40 Hgb 11.4 L Hct 37.1 MCV 84.3 MCH 25.9 L MCHC 30.7 L RDW Std Deviation 46.6 H RDW Coeff of Renetta 15.3 H Plt Count 346 MPV 9.1 Immature Gran % (Auto) 1.100 H Neut % (Auto) 44.6 L Lymph % (Auto) 36.5 Turner % (Auto) 13.9 H Eos % (Auto) 3.0 Baso % (Auto) 0.9 Absolute Neuts (auto) 3.3 Absolute Lymphs (auto) 2.70 Nucleated RBC % 0 Sodium 139 Potassium 3.9 Chloride 105 Carbon Dioxide 30.0 Anion Gap 4 L BUN 8 Creatinine 0.76 Estim Creat Clear Calc 98.28 Est GFR (MDRD) Af Amer 115 Est GFR (MDRD) Non-Af 95 BUN/Creatinine Ratio 10.5 Glucose 82 Lactic Acid 1.9 Calcium 9.2 Total Bilirubin 0.30 AST 19 ALT 71 H Alkaline Phosphatase 65 Total Protein 7.6 Albumin 3.3 Globulin 4.3 H Albumin/Globulin Ratio 0.8 L <Dr. Charleen Guaman MD - Last Filed: 02/12/23 15:46> [facility] Lab Data Labs: Laboratory Results - last 24 hr 02/12/23 02/12/23 02/12/23 11:20 11:20 11:20 WBC 7.4 RBC 4.40 Hgb 11.4 L Hct 37.1 MCV 84.3 MCH 25.9 L MCHC 30.7 L RDW Std Deviation 46.6 H RDW Coeff of Renetta 15.3 H Plt Count 346 MPV 9.1 Immature Gran % (Auto) 1.100 H Neut % (Auto) 44.6 L Lymph % (Auto) 36.5 Turner % (Auto) 13.9 H Eos % (Auto) 3.0 Baso % (Auto) 0.9 Absolute Neuts (auto) 3.3 Absolute Lymphs (auto) 2.70 Nucleated RBC % 0 Sodium 139 Potassium 3.9 Chloride 105 Carbon Dioxide 30.0 Anion Gap 4 L BUN 8 Creatinine 0.76 Estim Creat Clear Calc 98.28 Est GFR (MDRD) Af Amer 115 Est GFR (MDRD) Non-Af 95 BUN/Creatinine Ratio 10.5 Glucose 82 Lactic Acid 1.9 Calcium 9.2 Total Bilirubin 0.30 AST 19 ALT 71 H Alkaline Phosphatase 65 Total Protein 7.6 Albumin 3.3 Globulin 4.3 H Albumin/Globulin Ratio 0.8 L Treatment and Re-Evaluation :: Patient seen and evaluated with MIN. I personally interviewed and examined the patient. I was involved in all aspects of patient's orders, interpretation of results, and treatment. Patient seen and evaluated secondary to abdominal pain and dizziness. Patient was recently admitted to [facility] with similar. She was discharged a few days ago. Patient states that she feels extremely fatigued and wiped out after her hospital stay. Today she is having more right upper quadrant pain and her friend called the ambulance. Patient reports being told that her LFTs were abnormal during her recent stay and her lactic acid is been elevated. She states she was taken off of Depakote and Zoloft secondary to the elevated LFTs. She has been placed on Vimpat. She states that her psychiatrist had been tapering down her Zoloft but she was still on 20 mg a day and was to continue that until she was seen by her psychiatrist. They told her to [facility] to stop the Zoloft completely. Patient states she was told that if her LFTs or lactic acid are still elevated and she gets recurrent symptoms that she would need to be readmitted. Patient lying in bed no acute distress. She is nontoxic-appearing. Head and neck examination unremarkable. Moist mucous membranes. Heart is regular rate and rhythm. Lung sounds are clear. Abdomen is soft with mild tenderness on the right. No guarding or rebound. Neuro exam reveals no focal neurodeficits. I was able to review the records from [facility] and [facility]. I do not see any documentation of what her liver function tests were. She had a right upper quadrant ultrasound that was normal. She was referred to pain management for her chronic right-sided abdominal pain. CBC and chemistry studies today are unremarkable. LFTs significant only for a slightly elevated ALT at 71. Her lactic acid today is normal at 1.9. At this time patient would prefer to go home. She still has some oxycodone left from her recent discharge. She can follow with her primary care physician for any further pain medication. I advised her that she needs to restart her Zoloft at 20 mg and taper it per the psychiatrist recommendations, as stopping this suddenly can certainly make her feel significantly worse and lead to withdrawal. She voices understanding and agreement. Discharge Plan Triage Chief Complaint: Dizziness ED Midlevel Provider: Francisca Gonzalez ED Provider: Charleen Guaman Dx/Rx/DC Orders Clinical Impression: Abdominal pain, Nausea & vomiting, Fatigue, Diarrhea Instructions: ED Vomiting and Diarrhea ... Prescriptions: New ondansetron 4 mg tablet,disintegrating 4 mg PO Q8H PRN PRN (Reason: Nausea) Qty: 10 0RF No Action nitroglycerin 0.3 mg tablet, sublingual 0.3 mg sublingual Q5M PRN (Reason: cp) Rx Instructions: do not exceed 3 doses per episode albuterol sulfate 1 INHALER inhaler 1 - 2 puff INHALATION Q4H PRN PRN (Reason: Sob &/Or Wheezing) Ajovy Autoinjector 225 mg/1.5 mL Auto-Injector 225 mg SUBCUT QMONTH lorazepam [Ativan] 1 mg tablet 1 mg PO TID PRN (Reason: anxiety) Qty: 12 0RF esomeprazole magnesium [Nexium] 40 mg Capsule,Delayed Release(Dr/Ec) 40 mg PO DAILY Solu-Cortef 100 mg recon soln 5 - 15 mg IM TID fluoxetine 40 mg capsule 40 mg PO DAILY Label Comments: Take 1 capsule by mouth once daily. buspirone 5 mg tablet 5 mg PO TID Label Comments: TAKE 1 TABLET BY MOUTH THREE TIMES DAILY levothyroxine 137 mcg tablet 137 mcg PO DAILY Label Comments: Take 1 tablet by mouth once daily. tizanidine 4 mg tablet 4 mg PO Q8H PRN (Reason: Spasms) Label Comments: TAKE 1 TABLET BY MOUTH EVERY 8 HOURS NEEDED hydroxychloroquine 200 mg tablet 200 mg PO BID Label Comments: Take 1 tablet by mouth twice daily. albuterol sulfate [Ventolin HFA] 90 mcg/actuation HFA aerosol inhaler 2 inh INHALATION Q4H PRN (Reason: sob) Label Comments: Inhale 2 Puffs as instructed every 4 hours as needed. fludrocortisone 0.1 mg tablet 0.1 mg PO DAILY Label Comments: TAKE 1 TABLET BY MOUTH EVERY DAY acarbose 25 mg tablet 25 mg PO TID Label Comments: TAKE 1 TABLET THREE TIMES DAILY eletriptan 40 mg tablet 40 mg PO DAILY Label Comments: Take 1 tablet at the onset of migraine. Repeat 1 dose in 2 hours, if needed. estradiol 0.0375 mg/24 hr patch weekly 0.0375 mg transdermal MO Label Comments: Apply 1 Patch as directed one time a week. Gvoke HypoPen 2-Pack 1 mg/0.2 mL auto-injector 1 mg SUBCUT DAILY PRN PRN (Reason: Hypoglycemia) Label Comments: Inject 1 mg subcutaneously as needed. metformin 500 mg Tablet 500 mg PO DAILY hydrocodone-acetaminophen [hydrocodone-acetaminophen] 5-325 mg tablet 1 tab PO Q4H PRN PRN (Reason: Pain) 2 Days Qty: 10 0RF ondansetron [ondansetron] 4 mg tablet,disintegrating 8 mg PO Q8H PRN PRN (Reason: Nausea) Qty: 20 0RF Primary Care Provider: Kevin Stauffer Referrals: Kevin Stauffer MD [Primary Care Provider] - 1-2 Days if not improving Activity Restrictions/Additional Instructions: Please follow-up your PCP, get plenty of rest, drink plenty of fluids and return for any worsening of symptoms. Disposition Disposition: Home, Self Care Discharge Date/Time: 02/12/23 12:45
[2023-02-12 11:37] LABS: Absolute Neutrophil Count 3.3 X10^3/uL (2.0-7.7); Basophil# 0.07 X10^3/uL; Basophil% 0.9 % (0-1); Eosinophil# 0.22 X10^3/uL; Hematocrit 37.1 % (37-47); Hemoglobin 11.4 g/dL (12.0-15.0); Lymphocyte % 36.5 % (19-41); Mean Corp Hgb Conc 30.7 g/dL (32-36); Mean Corpuscular Hgb 25.9 pg (27.0-32.0); Mean Corpuscular Volume 84.3 fL (81-99); Mean Platelet Vol. 9.1 fl (6.2-12.0); Monocyte# 1.03 X10^3/uL; Monocyte% 13.9 % (0-10); NRBC Flagged by Analyzer 0 % (0-5); Neutrophil % 44.6 % (47-70); Platelet Count 346 K/mm3 (150-450); RBC Distribution Width CV 15.3 % (11.6-14.6); RBC Distribution Width SD 46.6 fl (35.1-43.9); White Blood Count 7.4 K/mm3 (4.4-11.0)
[2023-02-12 11:50] LABS: ALB/GLOB Ratio 0.8 RATIO (0.9-2.4); AST(SGOT) 19 U/L (15-37); Alanine Aminotransfer ALT/SGPT 71 U/L (13-56); Albumin, Serum 3.3 g/dL (3.2-5.0); Alkaline Phosphatase 65 U/L (45-117); Anion Gap 4 (5-15); BUN 8 mg/dL (7-18); BUN/Creat Ratio 10.5 RATIO (10-20); Calcium,Total 9.2 mg/dL (8.5-10.1); Chloride 105 mmol/L (98-107); Creatinine, Serum 0.76 mg/dL (0.55-1.02); EST Glomerular Filtration Rate 95 mL/min (>60); Est Glom Filt Rate - Afr Amer 115 mL/min (>60); Estimated Creatinine Clearance 98.28 ml/min; Globulin 4.3 g/dL (2.2-4.2); Glucose 82 mg/dL (74-106); Potassium 3.9 mmol/L (3.5-5.1); Protein, Total 7.6 g/dL (6.4-8.2); Sodium Level 139 mmol/L (136-145)
[2023-02-12 11:52] LABS: Lactic Acid 1.9 mmol/L (0.4-1.9)
[2023-02-12] MEDS: LORazepam 2 MG/ML Syringe 0.5 MG IV (12:06)
[2023-02-12] MEDS: Sertraline 50 MG Tablet 25 MG PO (12:06)
[2023-02-12 12:43] VITALS: PULSE 84; RESP 16
== END 2023-02-12 12:45 | disposition home or self-care (01) ==
PROVIDERS: Physician Assistant; Emergency Provider Emergency Medicine; PCP Family Medicine; Visit Provider Emergency Medicine
DX: R10.9 Unspecified abdominal pain (principal); R11.2 Nausea with vomiting, unspecified; R53.83 Other fatigue; R19.7 Diarrhea, unspecified; Z87.891 Personal history of nicotine dependence
CPT/HCPCS: 80053; 83605; 85025; 96361; 96374; 96375; 96376; 99285; J2405

== ENCOUNTER 2023-02-14 19:20 | Emergency (ER) | payer MEDICAID, SELFPAY ==
[2023-02-14 19:21] VITALS: BP 112/77; PULSE 72; RESP 15; TEMP 36.6; O2SAT 100; BMI 32.3
[2023-02-14 19:58] LABS: Absolute Lymphocyte Count 2.46 X10^3/uL (0.83-4.51); Absolute Neutrophil Count 4.2 X10^3/uL (2.0-7.7); Basophil# 0.05 X10^3/uL; Basophil% 0.6 % (0-1); Eosinophil# 0.16 X10^3/uL; Eosinophils% 2.1 % (0-5); Hematocrit 36.1 % (37-47); Hemoglobin 11.6 g/dL (12.0-15.0); Lymphocyte # 2.46 X10^3/ul (0.83-4.51); Lymphocyte % 31.9 % (19-41); Mean Corp Hgb Conc 32.1 g/dL (32-36); Mean Corpuscular Hgb 26.5 pg (27.0-32.0); Mean Corpuscular Volume 82.6 fL (81-99); Mean Platelet Vol. 9.3 fl (6.2-12.0); Monocyte# 0.81 X10^3/uL; Monocyte% 10.5 % (0-10); NRBC Flagged by Analyzer 0 % (0-5); Neutrophil # 4.18 X10^3/uL (2.7-7.7); Neutrophil % 54.1 % (47-70); Platelet Count 379 K/mm3 (150-450); RBC Distribution Width CV 15.5 % (11.6-14.6); RBC Distribution Width SD 46.8 fl (35.1-43.9); Red Blood Count 4.37 M/mm3 (4.2-5.4); White Blood Count 7.7 K/mm3 (4.4-11.0)
[2023-02-14 20:10] LABS: Color, Urine Yellow (Yellow); Glucose, Dipstick Normal (Normal); Ketone-Dipstick Negative (Negative); Leukocyte Esterase-Dipstick Negative /ul (Negative); Mucous, Urine 0 SEEN /hpf (<or=2+); Nitrite-Dipstick Negative (Negative); Occult Blood-Urine 50 /ul (Negative); Protein-Dipstick Negative (Negative); Specific Gravity, Urine 1.015 (1.002-1.030); Urine Bilirubin Dipstick Negative (Negative); Urine Clarity Clear (Clear); Urine Urobilinogen Normal (Normal); White Blood Cells 0 SEEN /hpf (0-5)
[2023-02-14 20:13] LABS: Internal QC Validated? YES +Cl - CLEAR BKGD; Pregnancy, Serum, hCG Quali. NEGATIVE Negative
[2023-02-14 20:16] LABS: Bacteria RARE /hpf (None Seen); Red Blood Cells-Urine 0-5 SEEN /hpf (0-5); Squamous Epithelial Cells - UA 0-5 SEEN /hpf (5-10)
[2023-02-14 20:19] LABS: ALB/GLOB Ratio 0.7 RATIO (0.9-2.4); AST(SGOT) 54 U/L (15-37); Alanine Aminotransfer ALT/SGPT 190 U/L (13-56); Albumin, Serum 3.4 g/dL (3.2-5.0); Alkaline Phosphatase 76 U/L (45-117); Anion Gap 6 (5-15); BUN 7 mg/dL (7-18); Calcium,Total 8.8 mg/dL (8.5-10.1); Chloride 104 mmol/L (98-107); Creatinine, Serum 0.87 mg/dL (0.55-1.02); EST Glomerular Filtration Rate 81 mL/min (>60); Est Glom Filt Rate - Afr Amer 98 mL/min (>60); Estimated Creatinine Clearance 85.85 ml/min; Globulin 4.6 g/dL (2.2-4.2); Glucose 142 mg/dL (74-106); Potassium 4.5 mmol/L (3.5-5.1); Sodium Level 137 mmol/L (136-145)
--- NOTE | 2023-02-14 21:09 | US_ITS ---
STUDY: ABDOMINAL ULTRASOUND - RIGHT UPPER QUADRANT REASON FOR VISIT: Female, 27 years old abd pain -- vomiting, hx of cholecystectomy, eval cbd TECHNIQUE: Ultrasound evaluation of the right upper quadrant was performed with real-time and static agosto-scale imaging. TECHNICAL QUALITY: Adequate. COMPARISON: None. FINDINGS: Liver: The liver measures 17.4 cm in craniocaudal dimension. There is mildly increased echogenicity of the liver. The bile ducts are within normal limits. There is hepatic color flow. The direction of portal flow is hepatopetal. There is no demonstrated mass lesion. Gallbladder: Patient is status post cholecystectomy. Common bile duct is mildly distended measuring 7 mm in diameter this can be within normal limits status post cholecystectomy. No intrahepatic biliary ductal dilation. Common Pancreas: No abnormality within limits of the exam. 9 x 11 x 4 mm anechoic focus anterior to the pancreatic head. Right Kidney: Normal size, contour and echogenicity. No cortical thinning. No solid or cystic mass lesion. No hydronephrosis. US/Gallbladder IMPRESSION: 7 mm diameter common bile duct may potentially be within normal limits status post cholecystectomy. Correlation for obstructive biliary pattern is recommended. No intrahepatic ductal dilation. A limited increased echogenicity of the liver suggesting mild hepatic steatosis. 9 x 11 x 4 mm anechoic focus anterior to the pancreatic head. Electronically Signed: Chuck Wade DO at 22:51 EDT ,
[2023-02-14] MEDS: 0.9% Normal Saline 1,000 ML 1000 ML IV (21:23)
[2023-02-14] MEDS: Morphine 4 MG/ML Syringe IV (21:24)
[2023-02-14] MEDS: Ondansetron 4 MG/2 ML Vial IV (21:25)
[2023-02-14 21:44] LABS: Lipase 26 U/L (13-75)
--- NOTE | 2023-02-14 22:40 | ED.VIS.GI ---
HPI HPI - GI History of Present Illness Chief Complaint: Abd Pain Informant: patient Narrative Narrative: Patient presents recurrent diarrhea starting yesterday along with vomiting today and abdominal pain. History of [place]'s disease and seizure disorder. Cholecystectomy, appendectomy and hysterectomy in the past. She is followed by GI through [facility]. She states she is concerned and upped her steroids today. She denies recent antibiotics. States stools are darker however nonbloody. Denies hematemesis. States she was here 2 days ago for similar. She has a history of elevated liver enzymes states concerned that is going back up. She had blood work from triage stated it was started and elevated compared to previous. States she was [facility] discharged a week ago after 5-day stay for trending up lactic acidosis. She states there is unclear source. She states she was taken off her Zoloft however when she returned 2 days ago this was restarted. She states she had a dilated common bile duct in the past report had MRI studies last July confirming this however never had an ERCP. Denies urinary. Prior similar symptoms: Yes PFSH PFSH Medical History Abnormal uterine bleeding (AUB) Addisonian crisis Addisons disease Adenomyosis Anxiety and depression Asthma Cardiology follow-up encounter Chest pain Chronic female pelvic pain Diabetes Difficulty swallowing Dysphagia Easy bruising Endometriosis determined by laparoscopy Former smoker Gastric reflux Gastroparesis Graves disease History of diverticulitis History of echocardiogram History of IBS History of left heart catheterization History of steroid therapy History of stress test History of ulceration Low iron Migraine Mild intermittent asthma Restless legs Seizures Shortness of breath on exertion Wears glasses Home Medications albuterol sulfate 90 mcg/actuation aerosol inhaler 1 - 2 puff inhalation Q4H PRN PRN Sob &/Or Wheezing 08/04/20 [History Last Taken Unknown] nitroglycerin 0.3 mg sublingual tablet 0.3 mg sublingual Q5M PRN cp 12/11/20 [History Last Taken Unknown] fremanezumab-vfrm 225 mg/1.5 mL subcutaneous auto-injector (Ajovy) 225 mg subcut QMONTH MIGRAINES 09/20/21 [History Last Taken 07/12/22] lorazepam 1 mg tablet (Ativan) 1 mg PO TID PRN anxiety #12 tabs 12/02/21 [Rx Last Taken 08/08/22] esomeprazole magnesium 40 mg capsule,delayed release (Nexium) 40 mg PO DAILY GERD 12/19/21 [History Last Taken 08/08/22] acarbose 25 mg tablet 25 mg PO TID sugar 08/09/22 [History Last Taken 08/08/22] albuterol sulfate 90 mcg/actuation aerosol inhaler (Ventolin HFA) 2 inh inhalation Q4H PRN sob 08/09/22 [History Last Taken Unknown] buspirone 5 mg tablet 5 mg PO TID ANXIETY 08/09/22 [History Last Taken 08/08/22] eletriptan 40 mg tablet 40 mg PO DAILY migraines 08/09/22 [History Last Taken 2 Days Ago ~08/07/22] estradiol 0.0375 mg/24 hr weekly transdermal patch 0.0375 mg transdermal [place] HORMONES 08/09/22 [History Last Taken 08/01/22] fludrocortisone 0.1 mg tablet 0.1 mg PO DAILY ADDISONS 08/09/22 [History Last Taken 08/08/22] fluoxetine 40 mg capsule 40 mg PO DAILY ANXIETY 08/09/22 [History Last Taken 08/08/22] glucagon 1 mg/0.2 mL subcutaneous auto-injector (GvWealthyLife HypoPen 2-Pack) 1 mg subcut DAILY PRN PRN Hypoglycemia 08/09/22 [History Last Taken Unknown] hydrocortisone sod succinate 100 mg solution for injection (Solu-Cortef) 5 - 15 mg IM TID ADDISONS 08/09/22 [History Last Taken 08/09/22] hydroxychloroquine 200 mg tablet 200 mg PO BID ARTHRITIS 08/09/22 [History Last Taken 08/08/22] levothyroxine 137 mcg tablet 137 mcg PO DAILY thyroid 08/09/22 [History Last Taken 08/08/22] tizanidine 4 mg tablet 4 mg PO Q8H PRN Spasms 08/09/22 [History Last Taken 2 Days Ago ~08/07/22] metformin 500 mg tablet 500 mg PO DAILY 09/05/22 [History Last Taken Unknown] hydrocodone-acetaminophen 5-325mg 5mg-325mg 1 tab PO Q4H PRN PRN Pain 2 days #10 TABLETS 11/03/22 [Rx Last Taken Unknown] ondansetron 4 mg disintegrating tablet 8 mg PO Q8H PRN PRN Nausea #20 tabs 11/03/22 [Rx Last Taken Unknown] ondansetron 4 mg disintegrating tablet 4 mg PO Q8H PRN PRN Nausea #10 tabs 02/12/23 [Rx Last Taken Unknown] hyoscyamine sulfate 0.125 mg sublingual tablet (Levsin/SL) 0.125 mg PO TID PRN abdominal pain #10 tabs 02/14/23 [Rx Last Taken Unknown] Allergy/AdvReac Type Severity Reaction Status Date / Time acetaminophen Allergy Anaphylaxis Verified 02/14/23 19:25 [From Excedrin Migraine] aspirin Allergy Anaphylaxis Verified 02/14/23 19:25 [From Excedrin Migraine] azithromycin Allergy Anaphylaxis Verified 02/14/23 19:25 [From Zithromax Z-Ruiz] bacitracin Allergy Swelling Verified 02/14/23 19:25 [From Neosporin ([id number])] bacitracin zinc Allergy Swelling Verified 02/14/23 19:25 [From Neosporin ([id number])] caffeine Allergy Anaphylaxis Verified 02/14/23 19:25 [From Excedrin Migraine] latex Allergy Rash Verified 02/14/23 19:25 neomycin sulfate Allergy Swelling Verified 02/14/23 19:25 [From Neosporin ([id number])] polymyxin B Allergy Swelling Verified 02/14/23 19:25 [From Neosporin ([id number])] Family History Uncle Diabetes Cancer lung Father Diabetes Grandfather CVA (cerebral vascular accident) Cancer lung, unsure additional type Uncle Cancer brain Grandmother Cancer lung and unsure additional type Surgical History History of appendectomy History of section History of laparoscopic-assisted vaginal hysterectomy History of laparoscopy History of left salpingo-oophorectomy History of thyroidectomy History of tubal ligation History of wisdom tooth extraction Hx laparoscopic cholecystectomy Social History Smoking Status: Former smoker ROS ROS ED Constitutional Constitutional ED: Denies chills, fever(s) or sweats Eyes Eyes: Denies change in vision ENT ENT ED: Denies dysphagia or sore throat Cardiovascular Cardiovascular: Denies chest pain, leg edema, palpitations or racing heartbeat Respiratory/Chest Respiratory/Chest: Denies cough, dyspnea or dyspnea on exertion Gastrointestinal Gastrointestinal: Reports abdominal pain, diarrhea and vomiting; Denies nausea Genitourinary Genitourinary ED: Denies dysuria, hematuria or urinary frequency Musculoskeletal Musculoskeletal: Denies back pain, extremity pain or neck pain Integumentary Denies rash or wounds Neurologic Neurologic: Denies headache(s), paresthesias or weakness EXAM Physical Exam Const Vital Signs: 02/14/23 19:21 Temperature 97.9 F Temperature Source Temporal Pulse Rate 72 Respiratory Rate 15 Blood Pressure 112/77 Blood Pressure Mean 88 Pulse Ox 100 Oxygen Delivery Method Room Air Positive well nourished and well developed General Appearance ED: well developed and NAD HEENT HEENT Narrative: Mild dry mucosal membranes normocephalic and atraumatic Eyes PERRL, EOMs intact bilaterally and conjunctivae normal General Eye ED: Yes normal appearance of both eyes Neck no lymphadenopathy and supple General: Negative for tenderness Chest Wall Chest: Negative for tenderness Resp normal respiratory effort and normal air movement Effort and Inspection: symmetric chest movement; Negative for respiratory distress Cardio regular rate, regular rhythm and no murmurs Peripheral Pulses: pulses 2+ throughout GI normal to inspection, nondistended, normoactive bowel sounds GI Narrative: Mild mid abdominal pain, no guarding or rebound. Palpation: Negative for guarding or rebound tenderness present Back/Spine no CVA tenderness and no thoracic nor lumbar tenderness Extremity normal to inspection General Extremety ED: Negative for edema or tenderness General Extremity: Negative for edema Neuro oriented x3, CN's II-XII intact bilaterally and no sensory deficits noted Sensorium / Orientation: awake and alert Skin no rashes or lesions noted and no wounds MDM MDM MDM Narrative Medical decision making narrative: Interventions / MDM: Differential diagnosis: Gastroenteritis, vomiting, diarrhea, choledocholithiasis Diagnosis considered but do not suspect: [place]'s crisis, normal blood pressure My EKG interpretation: N/A Imaging independently reviewed and interpreted by myself: Gallbladder ultrasound: Common bile duct 7 mm, absent gallbladder, pancreas with hyper anechoic lesion up to 1.1 cm. Fatty liver. External documents reviewed: Clinisync -visit from [facility] with a neurology consult took her off Depakote due to elevated liver enzymes started on Vimpat. Also noted referral to pain management. She is seen by psychiatry stopped her Zoloft. Test considered but not ordered:N/A ED course: Patient laboratory studies started in triage white count 6 and her enzymes slightly elevated at 190 ALT AST 54. Elevated from 2 days ago. Likely added normal. Due to reported dilated common bile duct in the past, reporting she had gallstones prior to her cholecystectomy. Ultrasound was ordered for evaluation. She was treated with morphine and Zofran fluids. Re-evaluation: Soft abdomen she was given additional Levsin. Proving symptoms no vomiting or diarrhea in the ED. Liver enzymes elevated slightly I did send for hepatitis panel for further evaluation. Clinically nontoxic. She has Zofran at home. Discussed findings for ultrasound the patient which can be followed up with her GI doctor through [facility]. Disposition discussed with patient/family/significant other: Patient and significant other Case discussed with consulting clinician: N/A Lab Data Attestation: I reviewed the patient's lab results. Labs: Laboratory Results - last 24 hr 02/14/23 02/14/23 02/14/23 19:50 19:50 19:50 WBC 7.7 RBC 4.37 Hgb 11.6 L Hct 36.1 L MCV 82.6 MCH 26.5 L MCHC 32.1 RDW Std Deviation 46.8 H RDW Coeff of Renetta 15.5 H Plt Count 379 MPV 9.3 Immature Gran % (Auto) 0.800 Neut % (Auto) 54.1 Lymph % (Auto) 31.9 [place] % (Auto) 10.5 H Eos % (Auto) 2.1 Baso % (Auto) 0.6 Absolute Neuts (auto) 4.2 Absolute Lymphs (auto) 2.46 Nucleated RBC % 0 Sodium 137 Potassium 4.5 Chloride 104 Carbon Dioxide 27.0 Anion Gap 6 BUN 7 Creatinine 0.87 Estim Creat Clear Calc 85.85 Est GFR (MDRD) Af Amer 98 Est GFR (MDRD) Non-Af 81 BUN/Creatinine Ratio 8.0 L Glucose 142 H Calcium 8.8 Total Bilirubin 0.30 AST 54 H ALT 190 H Alkaline Phosphatase 76 Total Protein 8.0 Albumin 3.4 Globulin 4.6 H Albumin/Globulin Ratio 0.7 L Lipase Serum , Qual NEGATIVE Urine Color Urine Clarity Urine pH Ur Specific [place] Urine Protein Urine Glucose (UA) Urine Ketones Urine Occult Blood Urine Nitrite Urine Bilirubin Urine Urobilinogen Ur Leukocyte Esterase Urine RBC Urine WBC Ur Squamous Epith Cells Urine Bacteria Urine Mucus 02/14/23 02/14/23 20:00 21:30 WBC RBC Hgb Hct MCV MCH MCHC RDW Std Deviation RDW Coeff of [place]etta Plt Count MPV Immature Gran % (Auto) Neut % (Auto) Lymph % (Auto) [place] % (Auto) Eos % (Auto) Baso % (Auto) Absolute Neuts (auto) Absolute Lymphs (auto) Nucleated RBC % Sodium Potassium Chloride Carbon Dioxide Anion Gap BUN Creatinine Estim Creat Clear Calc Est GFR (MDRD) Af Amer Est GFR (MDRD) Non-Af BUN/Creatinine Ratio Glucose Calcium Total Bilirubin AST ALT Alkaline Phosphatase Total Protein Albumin Globulin Albumin/Globulin Ratio Lipase 26 Serum , Qual Urine Color Yellow Urine Clarity Clear Urine pH 6.0 Ur Specific [place] 1.015 Urine Protein Negative Urine Glucose (UA) Normal Urine Ketones Negative Urine Occult Blood 50 H Urine Nitrite Negative Urine Bilirubin Negative Urine Urobilinogen Normal Ur Leukocyte Esterase Negative Urine RBC 0-5 SEEN Urine WBC 0 SEEN Ur Squamous Epith Cells 0-5 SEEN Urine Bacteria RARE Urine Mucus 0 SEEN Radiography Diagnostic Testing: Clinical Impression(s) from Imaging Studies Gallbladder Ultrasound 02/14/23 21:09 IMPRESSION: 7 mm diameter common bile duct may potentially be within normal limits status post cholecystectomy. Correlation for obstructive biliary pattern is recommended. No intrahepatic ductal dilation. A limited increased echogenicity of the liver suggesting mild hepatic steatosis. 9 x 11 x 4 mm anechoic focus anterior to the pancreatic head. Electronically Signed: Chuck Wade DO at 22:51 EDT , Discharge Plan Triage Chief Complaint: Abd Pain ED Provider: Manuel Corrales Dx/Rx/DC Orders Clinical Impression: Nausea & vomiting, Abdominal pain, Diarrhea, Elevated liver enzymes Instructions: Abdominal Pain, ED Vomiting and Diarrhea ... Prescriptions: New hyoscyamine sulfate [Levsin/SL] 0.125 mg tablet, sublingual 0.125 mg PO TID PRN (Reason: abdominal pain) Qty: 10 0RF No Action nitroglycerin 0.3 mg tablet, sublingual 0.3 mg sublingual Q5M PRN (Reason: cp) Rx Instructions: do not exceed 3 doses per episode albuterol sulfate 1 INHALER inhaler 1 - 2 puff INHALATION Q4H PRN PRN (Reason: Sob &/Or Wheezing) Ajovy Autoinjector 225 mg/1.5 mL Auto-Injector 225 mg SUBCUT QMONTH lorazepam [Ativan] 1 mg tablet 1 mg PO TID PRN (Reason: anxiety) Qty: 12 0RF esomeprazole magnesium [Nexium] 40 mg Capsule,Delayed Release(Dr/Ec) 40 mg PO DAILY Solu-Cortef 100 mg recon soln 5 - 15 mg IM TID fluoxetine 40 mg capsule 40 mg PO DAILY Label Comments: Take 1 capsule by mouth once daily. buspirone 5 mg tablet 5 mg PO TID Label Comments: TAKE 1 TABLET BY MOUTH THREE TIMES DAILY levothyroxine 137 mcg tablet 137 mcg PO DAILY Label Comments: Take 1 tablet by mouth once daily. tizanidine 4 mg tablet 4 mg PO Q8H PRN (Reason: Spasms) Label Comments: TAKE 1 TABLET BY MOUTH EVERY 8 HOURS NEEDED hydroxychloroquine 200 mg tablet 200 mg PO BID Label Comments: Take 1 tablet by mouth twice daily. albuterol sulfate [Ventolin HFA] 90 mcg/actuation HFA aerosol inhaler 2 inh INHALATION Q4H PRN (Reason: sob) Label Comments: Inhale 2 Puffs as instructed every 4 hours as needed. fludrocortisone 0.1 mg tablet 0.1 mg PO DAILY Label Comments: TAKE 1 TABLET BY MOUTH EVERY DAY acarbose 25 mg tablet 25 mg PO TID Label Comments: TAKE 1 TABLET THREE TIMES DAILY eletriptan 40 mg tablet 40 mg PO DAILY Label Comments: Take 1 tablet at the onset of migraine. Repeat 1 dose in 2 hours, if needed. estradiol 0.0375 mg/24 hr patch weekly 0.0375 mg transdermal [place] Label Comments: Apply 1 Patch as directed one time a week. Gvoke HypoPen 2-Pack 1 mg/0.2 mL auto-injector 1 mg SUBCUT DAILY PRN PRN (Reason: Hypoglycemia) Label Comments: Inject 1 mg subcutaneously as needed. metformin 500 mg Tablet 500 mg PO DAILY hydrocodone-acetaminophen [hydrocodone-acetaminophen] 5-325 mg tablet 1 tab PO Q4H PRN PRN (Reason: Pain) 2 Days Qty: 10 0RF ondansetron [ondansetron] 4 mg tablet,disintegrating 8 mg PO Q8H PRN PRN (Reason: Nausea) Qty: 20 0RF ondansetron 4 mg tablet,disintegrating 4 mg PO Q8H PRN PRN (Reason: Nausea) Qty: 10 0RF Primary Care Provider: Kevin Stauffer Referrals: Kevin Stauffer MD [Primary Care Provider] - Activity Restrictions/Additional Instructions: Blood work slight elevated liver enzymes 190 ALT, 54 AST. Bilirubin is normal. Lipase is normal. Ultrasound notes fatty liver, common bile duct 7 mm normal. Pancreas with anechoic lesion of 11 mm is largest. Hepatitis panel sent and pending. Follow-up with your GI doctor. Use Levsin as needed Zofran at home as needed. Disposition Disposition: Home, Self Care Discharge Date/Time: 02/14/23 23:25
[2023-02-14] MEDS: Hyoscyamine Sulfate 0.125 MG Tablet SL (22:46)
[2023-02-16 06:09] LABS: HEPATITIS B SURFACE AG Negative (Negative); Hep C Antibodies Non Reactive (Non Reactive); Hepatitis A IgM Antibody Negative (Negative); Hepatitis B Core AB IgM Negative (Negative)
== END 2023-02-14 23:25 | disposition home or self-care (01) ==
PROVIDERS: Emergency Provider Emergency Medicine; PCP Family Medicine; Visit Provider Emergency Medicine
DX: R11.2 Nausea with vomiting, unspecified (principal); R10.9 Unspecified abdominal pain; R19.7 Diarrhea, unspecified; K76.0 Fatty (change of) liver, not elsewhere classified; Z87.891 Personal history of nicotine dependence
CPT/HCPCS: 76705; 80053; 80074; 81001; 83690; 84703; 85025; 96360; 96361; 99284; J7030; A4216; J2405

== ENCOUNTER 2023-02-23 15:27 | Emergency (ER) | payer MEDICAID, SELFPAY ==
[2023-02-23 15:28] VITALS: BP 92/73; PULSE 95; RESP 16; TEMP 36.3; O2SAT 100; BMI 32.1
[2023-02-23] MEDS: 0.9% Normal Saline 1,000 ML 1000 ML IV (16:07)
--- NOTE | 2023-02-23 16:13 | EDS_ITS ---
HPI <CATE Ramos - Last Filed: 02/23/23 18:38> History of Present Illness Chief Complaint: Seizure Narrative Narrative: Patient is a 27-year-old female with history of seizure disorder, anxiety, depression adrenal insufficiency who takes Solu-Cortef 30 mg throughout the day. Patient also has history of seizure disorder, recently admitted here and then transferred to [facility] for 6 days. Last admission date was 02/14/2023. Patient states she was sitting on the couch today when she had a seizure, her friend called the ambulance. On arrival, the patient was not postictal. The patient has been taking Vimpat, has been off Depakote for greater than 2 weeks. She did state that she did miss some doses over the last couple days secondary to forgetting. She complains of a headache worse the left side which is chronic after she is having her seizures. Her last seizure was Monday which was 1 week ago. She did not come to the emergency department that time. She has been having trouble giving herself her full dose of Solu-Cortef secondary to a pharmacy issue. Patient states that she sees Tejal in [place]. Patient is unable to get in with her until March. Patient has no other complaints other than left-sided headache. [facility] <CATE Ramos - Last Filed: 02/23/23 18:38> [facility] Medical History Abnormal uterine bleeding (AUB) Addisonian crisis Addisons disease Adenomyosis Anxiety and depression Asthma Cardiology follow-up encounter Chest pain Chronic female pelvic pain Diabetes Difficulty swallowing Dysphagia Easy bruising Endometriosis determined by laparoscopy Former smoker Gastric reflux Gastroparesis Graves disease History of diverticulitis History of echocardiogram History of IBS History of left heart catheterization History of steroid therapy History of stress test History of ulceration Low iron Migraine Mild intermittent asthma Restless legs Seizures Shortness of breath on exertion Wears glasses Home Medications albuterol sulfate 90 mcg/actuation aerosol inhaler 1 - 2 puff inhalation Q4H PRN PRN Sob &/Or Wheezing 08/04/20 [History Last Taken Unknown] nitroglycerin 0.3 mg sublingual tablet 0.3 mg sublingual Q5M PRN cp 12/11/20 [History Last Taken Unknown] fremanezumab-vfrm 225 mg/1.5 mL subcutaneous auto-injector (Ajovy) 225 mg subcut QMONTH MIGRAINES 09/20/21 [History Last Taken 07/12/22] lorazepam 1 mg tablet (Ativan) 1 mg PO TID PRN anxiety #12 tabs 12/02/21 [Rx Last Taken 08/08/22] esomeprazole magnesium 40 mg capsule,delayed release (Nexium) 40 mg PO DAILY GERD 12/19/21 [History Last Taken 08/08/22] acarbose 25 mg tablet 25 mg PO TID sugar 08/09/22 [History Last Taken 08/08/22] albuterol sulfate 90 mcg/actuation aerosol inhaler (Ventolin HFA) 2 inh inhalation Q4H PRN sob 08/09/22 [History Last Taken Unknown] buspirone 5 mg tablet 15 mg PO TID ANXIETY 08/09/22 [History Last Taken 07/23 05/13] eletriptan 40 mg tablet 40 mg PO DAILY migraines 08/09/22 [History Last Taken 2 Days Ago ~08/07/22] estradiol 0.0375 mg/24 hr weekly transdermal patch 0.0375 mg transdermal MO HORMONES 08/09/22 [History Last Taken 08/01/22] fludrocortisone 0.1 mg tablet 0.1 mg PO DAILY ADDISONS 08/09/22 [History Last Taken 08/08/22] glucagon 1 mg/0.2 mL subcutaneous auto-injector (Gvoke HypoPen 2-Pack) 1 mg subcut DAILY PRN PRN Hypoglycemia 08/09/22 [History Last Taken Unknown] hydrocortisone sod succinate 100 mg solution for injection (Solu-Cortef) 5 - 15 mg IM TID ADDISONS 08/09/22 [History Last Taken 08/09/22] hydroxychloroquine 200 mg tablet 200 mg PO BID ARTHRITIS 08/09/22 [History Last Taken 08/08/22] levothyroxine 137 mcg tablet 125 mcg PO DAILY thyroid 08/09/22 [History Last Taken 08/08/22] tizanidine 4 mg tablet 4 mg PO Q8H PRN Spasms 08/09/22 [History Last Taken 2 Days Ago ~08/07/22] hydrocodone-acetaminophen 5-325mg 5mg-325mg 1 tab PO Q4H PRN PRN Pain 2 days #10 TABLETS 11/03/22 [Rx Last Taken Unknown] ondansetron 4 mg disintegrating tablet 8 mg PO Q8H PRN PRN Nausea #20 tabs 11/03/22 [Rx Last Taken Unknown] ondansetron 4 mg disintegrating tablet 4 mg PO Q8H PRN PRN Nausea #10 tabs 02/12/23 [Rx Last Taken Unknown] hyoscyamine sulfate 0.125 mg sublingual tablet (Levsin/SL) 0.125 mg PO TID PRN abdominal pain #10 tabs 02/14/23 [Rx Last Taken Unknown] clomipramine 75 mg capsule 100 mg PO DAILY 02/23/23 [History Last Taken Unknown] cyclobenzaprine 10 mg tablet 10 mg PO TID 02/23/23 [History Last Taken Unknown] gabapentin 100 mg capsule 100 mg PO BID 02/23/23 [History Last Taken Unknown] glimepiride 1 mg tablet 1 mg PO DAILY 02/23/23 [History Last Taken Unknown] lacosamide 100 mg tablet 100 mg PO BID 02/23/23 [History Last Taken Unknown] oxybutynin chloride 5 mg tablet 5 mg PO TID 02/23/23 [History Last Taken Unknown] pantoprazole 40 mg tablet,delayed release 40 mg PO DAILY 02/23/23 [History Last Taken Unknown] promethazine 25 mg tablet 25 mg PO Q6H PRN PRN Nausea 02/23/23 [History Last Taken Unknown] sitagliptin phosphate 100 mg tablet (Januvia) 100 mg PO DAILY 02/23/23 [History Last Taken Unknown] sucralfate 100 mg/mL oral suspension 1 g PO BID 02/23/23 [History Last Taken Unknown] Allergy/AdvReac Type Severity Reaction Status Date / Time acetaminophen Allergy Anaphylaxis Verified 02/23/23 15:32 [From Excedrin Migraine] aspirin Allergy Anaphylaxis Verified 02/23/23 15:32 [From Excedrin Migraine] azithromycin Allergy Anaphylaxis Verified 02/23/23 15:32 [From Zithromax Z-Ruiz] bacitracin Allergy Swelling Verified 02/23/23 15:32 [From Neosporin ([id number])] bacitracin zinc Allergy Swelling Verified 02/23/23 15:32 [From Neosporin ([id number])] caffeine Allergy Anaphylaxis Verified 02/23/23 15:32 [From Excedrin Migraine] latex Allergy Rash Verified 02/23/23 15:32 neomycin sulfate Allergy Swelling Verified 02/23/23 15:32 [From Neosporin ([id number])] polymyxin B Allergy Swelling Verified 02/23/23 15:32 [From Neosporin ([id number])] Family History Uncle Diabetes Cancer lung Father Diabetes Grandfather CVA (cerebral vascular accident) Cancer lung, unsure additional type Uncle Cancer brain Grandmother Cancer lung and unsure additional type Surgical History History of appendectomy History of section History of laparoscopic-assisted vaginal hysterectomy History of laparoscopy History of left salpingo-oophorectomy History of thyroidectomy History of tubal ligation History of wisdom tooth extraction Hx laparoscopic cholecystectomy Social History Smoking Status: Former smoker ROS <CATE Ramos - Last Filed: 02/23/23 18:38> ROS ED ROS Narrative Constitutional: Negative for fever, chills, weight loss, weakness Eyes: Negative for vision loss, vision change, double vision ENT: Negative for any sore throat, ear pain, congestion Cardiovascular: Negative for any chest pain, tightness, palpitations Respiratory: Negative for any cough, sputum production, hemoptysis, dyspnea, dyspnea on exertion, orthopnea Gastrointestinal: Negative for any abdominal pain, nausea, vomiting, diarrhea, constipation, blood in stool, blood in vomit : Negative for any urinary frequency, dysuria, retention, blood in urine Muscle skeletal: Negative for any muscle joint pain, stiffness, myalgias, arthralgias, neck pain, back pain Neurological: Negative for any numbness or tingling, dizziness. Positive left- sided headache, syncope Skin: Negative for any rashes, lumps, itching, abrasions, lacerations Psychiatric: Negative for any depression, anxiety, stress, suicidal ideation, homicidal ideation Hematologic: Negative for any easy bruising, excessive bruising, easy bleeding Allergies: Negative for any eczema, hives, rash EXAM <CATE Ramos - Last Filed: 02/23/23 18:38> Physical Exam Narrative Exam Narrative: Vital signs reviewed. Patient alert and orient x4. HEET: Head normocephalic atraumatic, TMs clear bilaterally. Posterior pharynx is clear, dry mucous membranes. Nares clear bilaterally. Pupils are equal round reactive to light. Neck: Supple with no lymphadenopathy or tenderness. No signs of meningismus Cardiac: Regular rate and rhythm no murmurs gallops or rubs, equal peripheral pulses bilaterally. Respiratory: Lungs clear to auscultation bilaterally. No chest tenderness. Abdomen: Soft, nontender, nondistended. No abdominal bruit or pulsatile masses. No hepatosplenomegaly Extremities: No peripheral edema, no signs of gross trauma or deformity. Active full range of motion of all extremities. Neuro: Cranial nerves II through XII intact, no focal neurological deficits. Skin: Clean dry and intact with no rash, purpura, petechiae, vesicles or pustules. Backs/flank: No CVA tenderness, no midline spinal tenderness, no deformity. Psych: Normal mood and affect. No SI, HI or acute psychosis. Const Vital Signs: 02/23/23 15:28 02/23/23 17:31 Temperature 97.4 F L Temperature Source Temporal Pulse Rate 95 80 Respiratory Rate 16 16 Blood Pressure 92/73 112/76 Blood Pressure Mean 79 88 Pulse Ox 100 100 Oxygen Delivery Method Room Air Room Air Positive well nourished and well developed General Appearance ED: well developed <Dr. Herberth Spear DO - Last Filed: 02/23/23 18:25> Physical Exam Const Vital Signs: 02/23/23 15:28 02/23/23 17:31 Temperature 97.4 F L Temperature Source Temporal Pulse Rate 95 80 Respiratory Rate 16 16 Blood Pressure 92/73 112/76 Blood Pressure Mean 79 88 Pulse Ox 100 100 Oxygen Delivery Method Room Air Room Air MDM <CATE Ramos - Last Filed: 02/23/23 18:38> MDM Lab Data Labs: Laboratory Results - last 24 hr 02/23/23 02/23/23 02/23/23 16:22 16:22 18:00 WBC 7.6 RBC 4.60 Hgb 11.7 L Hct 38.8 MCV 84.3 MCH 25.4 L MCHC 30.2 L RDW Std Deviation 48.0 H RDW Coeff of Renetta 15.7 H Plt Count 387 MPV 10.2 Immature Gran % (Auto) 0.300 Neut % (Auto) 55.8 Lymph % (Auto) 33.2 [place] % (Auto) 9.3 Eos % (Auto) 0.9 Baso % (Auto) 0.5 Absolute Neuts (auto) 4.2 Absolute Lymphs (auto) 2.51 Nucleated RBC % 0 Sodium 140 Potassium 3.5 Chloride 104 Carbon Dioxide 26.0 Anion Gap 10 BUN 8 Creatinine 0.83 Estim Creat Clear Calc 89.99 Est GFR (MDRD) Af Amer 104 Est GFR (MDRD) Non-Af 86 BUN/Creatinine Ratio 9.7 L Glucose 87 Calcium 9.4 Total Bilirubin 0.70 AST 19 ALT 67 H Alkaline Phosphatase 79 Total Protein 8.4 H Albumin 3.8 Globulin 4.6 H Albumin/Globulin Ratio 0.8 L Urine Color Yellow Urine Clarity Clear Urine pH 7.0 Ur Specific [place] 1.010 Urine Protein Negative Urine Glucose (UA) Normal Urine Ketones Negative Urine Occult Blood 25 H Urine Nitrite Negative Urine Bilirubin Negative Urine Urobilinogen Normal Ur Leukocyte Esterase 25 H Urine RBC 0-5 SEEN Urine WBC 0 SEEN Ur Squamous Epith Cells 0 SEEN Urine Bacteria 0 SEEN Urine Mucus 0 SEEN Treatment and Re-Evaluation :: Patient appears generally well, patient appears nontoxic, vital signs are stable. Patient presents to the emergency department for concern of a seizure- like activity. Patient had no loss of conscious, no bowel or bladder inco ntinence. Patient was seen here a couple weeks ago for the same, last seizure that she said was Monday which was 1 week ago. Patient is complaint is a headache which she gets after seizures. Patient was given 10 mg of Solu-Cortef, she takes 310 mg subcu shots daily. Patient's laboratory values show a normal CBC, chemistries were unremarkable. Patient was given a migraine cocktail, history of she states that this did little to help her headache however she would like to be discharged because she has a migraine medications at home. Patient is ambulatory, patient's neurological exam was unremarkable. Considered CT scan of the brain however she had one recently which was negative. She has history of the seizures. I did reach out to the patient's neurologist in [place], they will try to put her on the list to get seen sooner. Patient does have a ride in the room. At this time, patient states that she would like to be discharged. The patient was given return precautions, all questions ordered. Patient stable for discharge. <Dr. Herberth Spear, DO - Last Filed: 02/23/23 18:25> [facility] Narrative Medical decision making narrative: I have personally performed a face to face assessment of the patient and have reviewed the MIN Note. I performed a substantive portion of the visit including all aspects of the following. My bell findings include: History is [patient presents with a seizure via EMS. Patient apparently was with a friend when she had an episode that she thought was seizure related. Patient apparently became confused and disoriented but did not lose consciousness. There was no significant shaking. Patient wanted to then go to sleep but her friend would letter and call the squad for. Patient does have history of seizure disorder and states that her neurologist thinks it is stress related. Patient recently switched from Depakote to Vimpat because she was having some elevation in her liver enzymes and elevated lactate. Patient has not been totally compliant with her Vimpat and is missed it for several days. 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 Patient does complain of a headache. She denies falls or head injuries. She denies recent illness otherwise.] Patient did not lose control of bowel or bladder. She did not bite her tongue. Exam is [HEENT-PERRLA, EOMI. Cranial nerves II through XII grossly intact. TMs clear. Mucous membranes moist. No adenopathy. Cardiovascular-regular rate and rhythm without murmur or ectopy Lungs-clear to auscultation, chest wall stable without crepitus or subcu emphysema Abdomen-normoactive bowel sounds, soft, nontender, no rebound or rigidity, no peritoneal signs. Extremities-intact ?4, normal range of motion, normal pulses, atraumatic] Medical Decison Making [patient presents with possible seizure. She has a history of nonepileptic seizures. She has not been compliant with her Vimpat. Patient was medicated with Ativan 1 mg IV and given Toradol for her headache. Patient will be discharged to home. Advised to continue with her Vimpat and follow-up with her neurologist. Clinically I do not feel she had an epileptic seizure as there is no loss of consciousness and she had no loss of bowel or bladder. Patient currently working on obtaining Solu-Cortef through her pharmacy. We will contact our pharmacy to see if they have it available.] Other additions or changes: [None] Lab Data Labs: Laboratory Results - last 24 hr 02/23/23 02/23/23 02/23/23 16:22 16:22 18:00 WBC 7.6 RBC 4.60 Hgb 11.7 L Hct 38.8 MCV 84.3 MCH 25.4 L MCHC 30.2 L RDW Std Deviation 48.0 H RDW Coeff of Renetta 15.7 H Plt Count 387 MPV 10.2 Immature Gran % (Auto) 0.300 Neut % (Auto) 55.8 Lymph % (Auto) 33.2 [place] % (Auto) 9.3 Eos % (Auto) 0.9 Baso % (Auto) 0.5 Absolute Neuts (auto) 4.2 Absolute Lymphs (auto) 2.51 Nucleated RBC % 0 Sodium 140 Potassium 3.5 Chloride 104 Carbon Dioxide 26.0 Anion Gap 10 BUN 8 Creatinine 0.83 Estim Creat Clear Calc 89.99 Est GFR (MDRD) Af Amer 104 Est GFR (MDRD) Non-Af 86 BUN/Creatinine Ratio 9.7 L Glucose 87 Calcium 9.4 Total Bilirubin 0.70 AST 19 ALT 67 H Alkaline Phosphatase 79 Total Protein 8.4 H Albumin 3.8 Globulin 4.6 H Albumin/Globulin Ratio 0.8 L Urine Color Yellow Urine Clarity Clear Urine pH 7.0 Ur Specific [place] 1.010 Urine Protein Negative Urine Glucose (UA) Normal Urine Ketones Negative Urine Occult Blood 25 H Urine Nitrite Negative Urine Bilirubin Negative Urine Urobilinogen Normal Ur Leukocyte Esterase 25 H Urine RBC 0-5 SEEN Urine WBC 0 SEEN Ur Squamous Epith Cells 0 SEEN Urine Bacteria 0 SEEN Urine Mucus 0 SEEN Discharge Plan Triage Chief Complaint: Seizure ED Midlevel Provider: Migel Luis ED Provider: Herberth Spear Dx/Rx/DC Orders Clinical Impression: Anxiety, Seizure, Cephalalgia Instructions: ED Anxiety Reaction, ED Headache, Tension, ED Seizure, Recurrent (Adult) Prescriptions: No Action nitroglycerin 0.3 mg tablet, sublingual 0.3 mg sublingual Q5M PRN (Reason: cp) Rx Instructions: do not exceed 3 doses per episode albuterol sulfate 1 INHALER inhaler 1 - 2 puff INHALATION Q4H PRN PRN (Reason: Sob &/Or Wheezing) Ajovy Autoinjector 225 mg/1.5 mL Auto-Injector 225 mg SUBCUT QMONTH lorazepam [Ativan] 1 mg tablet 1 mg PO TID PRN (Reason: anxiety) Qty: 12 0RF esomeprazole magnesium [Nexium] 40 mg Capsule,Delayed Release(Dr/Ec) 40 mg PO DAILY Solu-Cortef 100 mg recon soln 5 - 15 mg IM TID buspirone 5 mg tablet 15 mg PO TID Label Comments: TAKE 1 TABLET BY MOUTH THREE TIMES DAILY levothyroxine 137 mcg tablet 125 mcg PO DAILY Label Comments: Take 1 tablet by mouth once daily. tizanidine 4 mg tablet 4 mg PO Q8H PRN (Reason: Spasms) Label Comments: TAKE 1 TABLET BY MOUTH EVERY 8 HOURS NEEDED hydroxychloroquine 200 mg tablet 200 mg PO BID Label Comments: Take 1 tablet by mouth twice daily. albuterol sulfate [Ventolin HFA] 90 mcg/actuation HFA aerosol inhaler 2 inh INHALATION Q4H PRN (Reason: sob) Label Comments: Inhale 2 Puffs as instructed every 4 hours as needed. fludrocortisone 0.1 mg tablet 0.1 mg PO DAILY Label Comments: TAKE 1 TABLET BY MOUTH EVERY DAY acarbose 25 mg tablet 25 mg PO TID Label Comments: TAKE 1 TABLET THREE TIMES DAILY eletriptan 40 mg tablet 40 mg PO DAILY Label Comments: Take 1 tablet at the onset of migraine. Repeat 1 dose in 2 hours, if needed. estradiol 0.0375 mg/24 hr patch weekly 0.0375 mg transdermal [place] Label Comments: Apply 1 Patch as directed one time a week. Gvoke HypoPen 2-Pack 1 mg/0.2 mL auto-injector 1 mg SUBCUT DAILY PRN PRN (Reason: Hypoglycemia) Label Comments: Inject 1 mg subcutaneously as needed. hydrocodone-acetaminophen [hydrocodone-acetaminophen] 5-325 mg tablet 1 tab PO Q4H PRN PRN (Reason: Pain) 2 Days Qty: 10 0RF ondansetron [ondansetron] 4 mg tablet,disintegrating 8 mg PO Q8H PRN PRN (Reason: Nausea) Qty: 20 0RF ondansetron 4 mg tablet,disintegrating 4 mg PO Q8H PRN PRN (Reason: Nausea) Qty: 10 0RF hyoscyamine sulfate [Levsin/SL] 0.125 mg tablet, sublingual 0.125 mg PO TID PRN (Reason: abdominal pain) Qty: 10 0RF cyclobenzaprine 10 mg tablet 10 mg PO TID clomipramine 75 mg capsule 100 mg PO DAILY sucralfate 100 mg/mL suspension 1 g PO BID glimepiride 1 mg tablet 1 mg PO DAILY pantoprazole 40 mg tablet,delayed release (DR/EC) 40 mg PO DAILY promethazine 25 mg tablet 25 mg PO Q6H PRN PRN (Reason: Nausea) gabapentin 100 mg capsule 100 mg PO BID oxybutynin chloride 5 mg tablet 5 mg PO TID Januvia 100 mg tablet 100 mg PO DAILY lacosamide 100 mg tablet 100 mg PO BID Primary Care Provider: Kevin Stauffer Referrals: Kevin Stauffer MD [Primary Care Provider] - Disposition Disposition: Home, Self Care
[2023-02-23] MEDS: Hydrocortisone Sod Succinate 100 MG/2 ML Vial 10 MG IM (16:33)
[2023-02-23] MEDS: LORazepam 2 MG/ML Syringe 1 MG IV (16:34)
[2023-02-23 16:35] LABS: Absolute Lymphocyte Count 2.51 X10^3/uL (0.83-4.51); Absolute Neutrophil Count 4.2 X10^3/uL (2.0-7.7); Basophil# 0.04 X10^3/uL; Basophil% 0.5 % (0-1); Eosinophil# 0.07 X10^3/uL; Eosinophils% 0.9 % (0-5); Hematocrit 38.8 % (37-47); Hemoglobin 11.7 g/dL (12.0-15.0); Lymphocyte # 2.51 X10^3/ul (0.83-4.51); Lymphocyte % 33.2 % (19-41); Mean Corp Hgb Conc 30.2 g/dL (32-36); Mean Corpuscular Hgb 25.4 pg (27.0-32.0); Mean Corpuscular Volume 84.3 fL (81-99); Mean Platelet Vol. 10.2 fl (6.2-12.0); Monocyte% 9.3 % (0-10); NRBC Flagged by Analyzer 0 % (0-5); Neutrophil # 4.21 X10^3/uL (2.7-7.7); Neutrophil % 55.8 % (47-70); Platelet Count 387 K/mm3 (150-450); RBC Distribution Width CV 15.7 % (11.6-14.6); White Blood Count 7.6 K/mm3 (4.4-11.0)
[2023-02-23 16:49] LABS: ALB/GLOB Ratio 0.8 RATIO (0.9-2.4); AST(SGOT) 19 U/L (15-37); Alanine Aminotransfer ALT/SGPT 67 U/L (13-56); Albumin, Serum 3.8 g/dL (3.2-5.0); Alkaline Phosphatase 79 U/L (45-117); Anion Gap 10 (5-15); BUN 8 mg/dL (7-18); BUN/Creat Ratio 9.7 RATIO (10-20); Calcium,Total 9.4 mg/dL (8.5-10.1); Chloride 104 mmol/L (98-107); Creatinine, Serum 0.83 mg/dL (0.55-1.02); EST Glomerular Filtration Rate 86 mL/min (>60); Est Glom Filt Rate - Afr Amer 104 mL/min (>60); Estimated Creatinine Clearance 89.99 ml/min; Globulin 4.6 g/dL (2.2-4.2); Glucose 87 mg/dL (74-106); Potassium 3.5 mmol/L (3.5-5.1); Protein, Total 8.4 g/dL (6.4-8.2); Sodium Level 140 mmol/L (136-145)
[2023-02-23] MEDS: Ketorolac 15 MG/ML Vial IV (17:26)
[2023-02-23 17:31] VITALS: BP 112/76; PULSE 80; RESP 16; O2SAT 100
[2023-02-23 18:07] LABS: Bacteria 0 SEEN /hpf (None Seen); Mucous, Urine 0 SEEN /hpf (<or=2+); Squamous Epithelial Cells - UA 0 SEEN /hpf (5-10); White Blood Cells 0 SEEN /hpf (0-5)
[2023-02-23 18:10] LABS: Color, Urine Yellow (Yellow); Glucose, Dipstick Normal (Normal); Ketone-Dipstick Negative (Negative); Leukocyte Esterase-Dipstick 25 /ul (Negative); Nitrite-Dipstick Negative (Negative); Occult Blood-Urine 25 /ul (Negative); Protein-Dipstick Negative (Negative); Urine Bilirubin Dipstick Negative (Negative); Urine Clarity Clear (Clear); Urine Urobilinogen Normal (Normal)
[2023-02-23] MEDS: DiphenhydrAMINE 50 MG/ML Syringe 25 MG IV (18:13)
[2023-02-23] MEDS: Metoclopramide 10 MG/2 ML Vial IV (18:14)
[2023-02-23 18:15] LABS: Red Blood Cells-Urine 0-5 SEEN /hpf (0-5)
== END 2023-02-23 18:45 | disposition home or self-care (01) ==
PROVIDERS: Nurse Practitioner; Emergency Provider Emergency Medicine; PCP Family Medicine; Visit Provider Emergency Medicine
DX: F41.9 Anxiety disorder, unspecified (principal); E11.43 Type 2 diabetes mellitus with diabetic autonomic (poly)neuropathy; R56.9 Unspecified convulsions; R51.9 Headache, unspecified; J45.909 Unspecified asthma, uncomplicated; K21.9 Gastro-esophageal reflux disease without esophagitis; F32.A Depression, unspecified; Z87.891 Personal history of nicotine dependence; Z79.899 Other long term (current) drug therapy; Z79.84 Long term (current) use of oral hypoglycemic drugs
CPT/HCPCS: 80053; 81001; 85025; 96361; 96372; 96374; 96375; 99285; J7030; A4216

== ENCOUNTER 2023-06-09 13:18 | Emergency (ER) | payer MEDICAID, SELFPAY ==
[2023-06-09 13:19] VITALS: BP 146/96; PULSE 106; RESP 18; TEMP 35.8; O2SAT 100; BMI 33.7
--- NOTE | 2023-06-09 13:34 | EDS_ITS ---
HPI <TRUDI Nicholson - Last Filed: 06/09/23 14:47> History of Present Illness Chief Complaint: Nausea/Vomiting/Diarrhea Narrative Narrative: 28-year-old female with PMH of seizures, DM2, O'Neals's disease, Graves' disease, PETERSON presents with upper abdominal pain and nausea and vomiting that started this morning. She states she had similar symptoms about 3 weeks ago and was admitted to [facility]. Today she cannot keep down any p.o. intake and feels weak and thinks her skin looks flushed. She has had loose light-colored stools. No urinary symptoms. Surgical history includes cholecystectomy, appendectomy, complete hysterectomy for endometriosis. PFSH <TRUDI Nicholson - Last Filed: 06/09/23 14:47> [facility] Medical History Abnormal uterine bleeding (AUB) Addisonian crisis Addisons disease Adenomyosis Anxiety and depression Asthma Cardiology follow-up encounter Chest pain Chronic female pelvic pain Diabetes Difficulty swallowing Dysphagia Easy bruising Endometriosis determined by laparoscopy Former smoker Gastric reflux Gastroparesis Graves disease History of diverticulitis History of echocardiogram History of IBS History of left heart catheterization History of steroid therapy History of stress test History of ulceration Low iron Migraine Mild intermittent asthma Restless legs Seizures Shortness of breath on exertion Wears glasses Home Medications albuterol sulfate 90 mcg/actuation aerosol inhaler 1 - 2 puff inhalation Q4H PRN PRN Sob &/Or Wheezing 08/04/20 [History Last Taken Unknown] nitroglycerin 0.3 mg sublingual tablet 0.3 mg sublingual Q5M PRN cp 12/11/20 [History Last Taken Unknown] fremanezumab-vfrm 225 mg/1.5 mL subcutaneous auto-injector (Ajovy) 225 mg subcut QMONTH MIGRAINES 09/20/21 [History Last Taken 07/12/22] lorazepam 1 mg tablet (Ativan) 1 mg PO TID PRN anxiety #12 tabs 12/02/21 [Rx Last Taken 08/08/22] esomeprazole magnesium 40 mg capsule,delayed release (Nexium) 40 mg PO DAILY GERD 12/19/21 [History Last Taken 08/08/22] acarbose 25 mg tablet 25 mg PO TID sugar 08/09/22 [History Last Taken 08/08/22] albuterol sulfate 90 mcg/actuation aerosol inhaler (Ventolin HFA) 2 inh inhalation Q4H PRN sob 08/09/22 [History Last Taken Unknown] buspirone 5 mg tablet 15 mg PO TID ANXIETY 08/09/22 [History Last Taken 08/08/22] eletriptan 40 mg tablet 40 mg PO DAILY migraines 08/09/22 [History Last Taken 2 Days Ago ~08/07/22] estradiol 0.0375 mg/24 hr weekly transdermal patch 0.0375 mg transdermal MO H ORMONES 08/09/22 [History Last Taken 08/01/22] fludrocortisone 0.1 mg tablet 0.1 mg PO DAILY ADDISONS 08/09/22 [History Last Taken 08/08/22] glucagon 1 mg/0.2 mL subcutaneous auto-injector (Gvoke HypoPen 2-Pack) 1 mg subcut DAILY PRN PRN Hypoglycemia 08/09/22 [History Last Taken Unknown] hydrocortisone sod succinate 100 mg solution for injection (Solu-Cortef) 5 - 15 mg IM TID ADDISONS 08/09/22 [History Last Taken 08/09/22] hydroxychloroquine 200 mg tablet 200 mg PO BID ARTHRITIS 08/09/22 [History Last Taken 08/08/22] levothyroxine 137 mcg tablet 125 mcg PO DAILY thyroid 08/09/22 [History Last Taken 08/08/22] tizanidine 4 mg tablet 4 mg PO Q8H PRN Spasms 08/09/22 [History Last Taken 2 Days Ago ~08/07/22] hydrocodone-acetaminophen 5-325mg 5mg-325mg 1 tab PO Q4H PRN PRN Pain 2 days #10 TABLETS 11/03/22 [Rx Last Taken Unknown] ondansetron 4 mg disintegrating tablet 8 mg (2 x 4 mg) PO Q8H PRN PRN Nausea #20 tabs 11/03/22 [Rx Last Taken Unknown] ondansetron 4 mg disintegrating tablet 4 mg PO Q8H PRN PRN Nausea #10 tabs 02/12/23 [Rx Last Taken Unknown] hyoscyamine sulfate 0.125 mg sublingual tablet (Levsin/SL) 0.125 mg PO TID PRN abdominal pain #10 tabs 02/14/23 [Rx Last Taken Unknown] clomipramine 75 mg capsule 100 mg PO DAILY 02/23/23 [History Last Taken Unknown] cyclobenzaprine 10 mg tablet 10 mg PO TID 02/23/23 [History Last Taken Unknown] gabapentin 100 mg capsule 100 mg PO BID 02/23/23 [History Last Taken Unknown] glimepiride 1 mg tablet 1 mg PO DAILY 02/23/23 [History Last Taken Unknown] lacosamide 100 mg tablet 100 mg PO BID 02/23/23 [History Last Taken Unknown] oxybutynin chloride 5 mg tablet 5 mg PO TID 02/23/23 [History Last Taken Unknown] pantoprazole 40 mg tablet,delayed release 40 mg PO DAILY 02/23/23 [History Last Taken Unknown] promethazine 25 mg tablet 25 mg PO Q6H PRN PRN Nausea 02/23/23 [History Last Taken Unknown] sitagliptin phosphate 100 mg tablet (Januvia) 100 mg PO DAILY 02/23/23 [History Last Taken Unknown] sucralfate 100 mg/mL oral suspension 1 g PO BID 02/23/23 [History Last Taken Unknown] ondansetron 4 mg disintegrating tablet 4 mg PO Q6H PRN nausea and vomiting #12 tabs 06/09/23 [Rx Last Taken Unknown] Allergy/AdvReac Type Severity Reaction Status Date / Time acetaminophen Allergy Anaphylaxis Verified 06/09/23 13:19 [From Excedrin Migraine] aspirin Allergy Anaphylaxis Verified 06/09/23 13:19 [From Excedrin Migraine] azithromycin Allergy Anaphylaxis Verified 06/09/23 13:19 [From Zithromax Z-Ruiz] bacitracin Allergy Swelling Verified 06/09/23 13:19 [From Neosporin ([id number])] bacitracin zinc Allergy Swelling Verified 06/09/23 13:19 [From Neosporin ([id number])] caffeine Allergy Anaphylaxis Verified 06/09/23 13:19 [From Excedrin Migraine] latex Allergy Rash Verified 06/09/23 13:19 neomycin sulfate Allergy Swelling Verified 06/09/23 13:19 [From Neosporin ([id number])] polymyxin B Allergy Swelling Verified 06/09/23 13:19 [From Neosporin ([id number])] Family History Uncle Diabetes Cancer lung Father Diabetes Grandfather CVA (cerebral vascular accident) Cancer lung, unsure additional type Uncle Cancer brain Grandmother Cancer lung and unsure additional type Surgical History History of appendectomy History of section History of laparoscopic-assisted vaginal hysterectomy History of laparoscopy History of left salpingo-oophorectomy History of thyroidectomy History of tubal ligation History of wisdom tooth extraction Hx laparoscopic cholecystectomy Social History Smoking Status: Former smoker ROS <TRUDI Nicholson - Last Filed: 06/09/23 14:47> ROS ED ROS Narrative Constitutional: Negative for fever, chills, malaise. CVS: Negative for palpitations, chest pain, syncope. Respiratory: Negative for shortness of breath, cough, orthopnea. GI: Positive for abdominal pain, nausea, vomiting. Negative for constipation, melena, hematochezia. : Negative for dysuria, hematuria or frequency. Neuro: Negative for headache. EXAM <TRUDI Nicholson - Last Filed: 06/09/23 14:47> Physical Exam Narrative Exam Narrative: CONST: Patient sitting in no acute distress. EYES: Normal inspection. ENT: Normal inspection, slightly dry mucous membranes. NECK: Normal inspection. RESP: No respiratory distress, CTAB. CVS: Regular rate and rhythm, no murmur, no gallop. ABD: Soft with diffuse upper abdominal tenderness, no guarding or rebound, nondistended, no hepatosplenomegaly. SKIN: Color normal, no rash, warm, dry, intact. EXTREMITIES: Normal appearance, no pedal edema. NEURO: Oriented x4. PSYCH: Normal affect. Const Vital Signs: 06/09/23 13:19 Temperature 96.4 F L Temperature Source Temporal Pulse Rate 106 H Respiratory Rate 18 Blood Pressure 146/96 H Blood Pressure Mean 112 Pulse Ox 100 Oxygen Delivery Method Room Air <Dr. Ryan Lopez MD - Last Filed: 06/09/23 13:56> Physical Exam Const Vital Signs: 06/09/23 13:19 Temperature 96.4 F L Temperature Source Temporal Pulse Rate 106 H Respiratory Rate 18 Blood Pressure 146/96 H Blood Pressure Mean 112 Pulse Ox 100 Oxygen Delivery Method Room Air [facility] <TRUDI Nicholson - Last Filed: 06/09/23 14:47> [facility] Narrative Medical decision making narrative: Patient complains of upper abdominal pain and nausea and vomiting. Has a history of Peterson and states she was hospitalized for this about 3 weeks ago with liver enzymes in the thousands. She appears well and nontoxic. She is slightly hypertensive and tachycardic at 106 with otherwise normal vital signs. She does not look ill or septic. Exam is only notable for upper abdominal pain without peritoneal signs. She is already had a cholecystectomy. She does have history of GERD and PETERSON. Labs show white count of 14.0 which may be reactive from vomiting. Hemoglobin is 11.7. She has normal electrolytes, normal renal function, AST 18, ALT 30, normal lipase. Urinalysis negative. She has had a hysterectomy so I did not obtain a test. After IV fluids, Zofran, and Toradol she is feeling somewhat improved. She did request prescription pain medication for home but she states she cannot take NSAIDs due to prior GI bleed and was advised not to take Tylenol after her liver issues. I do not think narcotic medication is indicated. Her symptoms may be viral gastroenteritis and I discussed symptomatic treatment and prescribed Zofran. She also has Phenergan at home. Patient was given return precautions and discharged in stable condition. I have personally performed a face to face assessment of the patient and have reviewed the MIN Note. I performed a substantive portion of the visit including all aspects of the following. My bell findings include: History is 28-year-old female complaining of right upper quadrant abdominal pain. Has a history of liver disease. Complaining nausea and vomiting for the last several days. Recent hospitalization at [facility]. Pending upcoming appointment to see a liver specialist at [facility]. Exam is [28-year-old no acute distress vital signs stable afebrile. HEENT exam unremarkable. Neck is nontender. No JVD. No lymphadenopathy. Lungs clear to auscultation bilaterally. Heart regular rhythm no murmur. Abdomen soft nondistended normal bowel sounds no peritoneal signs. Tender to right upper quadrant. Moves all 4 extremities nontender no edema. Back nontender. She is awake and alert. No focal motor deficits.] Medical Decision Making [patient with acute on chronic right abdominal pain. Treated with Zofran for nausea and Toradol for pain.] Other additions or changes: [None] Lab Data Attestation: I reviewed the patient's lab results. Labs: Laboratory Results - last 24 hr 06/09/23 06/09/23 13:42 14:18 WBC 14.0 H RBC 4.42 Hgb 11.7 L Hct 37.7 MCV 85.3 MCH 26.5 L MCHC 31.0 L RDW Std Deviation 44.4 H RDW Coeff of Renetta 14.5 Plt Count 364 MPV 9.6 Immature Gran % (Auto) 1.000 H Neut % (Auto) 75.8 H Lymph % (Auto) 16.0 L Citrus % (Auto) 7.0 Eos % (Auto) 0.0 Baso % (Auto) 0.2 Absolute Neuts (auto) 10.6 H Absolute Lymphs (auto) 2.23 Nucleated RBC % 0 Sodium 136 Potassium 4.1 Chloride 104 Carbon Dioxide 26.0 Anion Gap 6 BUN 12 Creatinine 0.80 Estim Creat Clear Calc 92.53 Est GFR (MDRD) Af Amer 108 Est GFR (MDRD) Non-Af 89 BUN/Creatinine Ratio 15.0 Glucose 98 Calcium 9.5 Total Bilirubin 0.50 Direct Bilirubin 0.08 AST 18 ALT 30 Alkaline Phosphatase 70 Total Protein 7.9 Albumin 3.4 Globulin 4.5 H Lipase 33 Urine Color Yellow Urine Clarity Clear Urine pH 7.0 Ur Specific Hersey 1.010 Urine Protein Negative Urine Glucose (UA) Normal Urine Ketones Negative Urine Occult Blood 50 H Urine Nitrite Negative Urine Bilirubin Negative Urine Urobilinogen Normal Ur Leukocyte Esterase Negative Urine RBC 0 SEEN Urine WBC 0 SEEN Ur Squamous Epith Cells 0 SEEN Urine Bacteria 0 SEEN Urine Mucus 0 SEEN <Dr. Ryan Lopez MD - Last Filed: 06/09/23 13:56> [facility] Narrative Medical decision making narrative: I have personally performed a face to face assessment of the patient and have reviewed the MIN Note. I performed a substantive portion of the visit including all aspects of the following. My bell findings include: History is 28-year-old female complaining of right upper quadrant abdominal pain. Has a history of liver disease. Complaining nausea and vomiting for the last several days. Recent hospitalization at [facility]. Pending upcoming appointment to see a liver specialist at [facility]. Exam is [28-year-old no acute distress vital signs stable afebrile. HEENT exam unremarkable. Neck is nontender. No JVD. No lymphadenopathy. Lungs clear to auscultation bilaterally. Heart regular rhythm no murmur. Abdomen soft nondistended normal bowel sounds no peritoneal signs. Tender to right upper quadrant. Moves all 4 extremities nontender no edema. Back nontender. She is awake and alert. No focal motor deficits.] Medical Decision Making [patient with acute on chronic right abdominal pain. Treated with Zofran for nausea and Toradol for pain.] Other additions or changes: [None] History & Record Review Discussion w/independent historian: Patient Lab Data Labs: Laboratory Results - last 24 hr 06/09/23 06/09/23 13:42 14:18 WBC 14.0 H RBC 4.42 Hgb 11.7 L Hct 37.7 MCV 85.3 MCH 26.5 L MCHC 31.0 L RDW Std Deviation 44.4 H RDW Coeff of Renetta 14.5 Plt Count 364 MPV 9.6 Immature Gran % (Auto) 1.000 H Neut % (Auto) 75.8 H Lymph % (Auto) 16.0 L Citrus % (Auto) 7.0 Eos % (Auto) 0.0 Baso % (Auto) 0.2 Absolute Neuts (auto) 10.6 H Absolute Lymphs (auto) 2.23 Nucleated RBC % 0 Sodium 136 Potassium 4.1 Chloride 104 Carbon Dioxide 26.0 Anion Gap 6 BUN 12 Creatinine 0.80 Estim Creat Clear Calc 92.53 Est GFR (MDRD) Af Amer 108 Est GFR (MDRD) Non-Af 89 BUN/Creatinine Ratio 15.0 Glucose 98 Calcium 9.5 Total Bilirubin 0.50 Direct Bilirubin 0.08 AST 18 ALT 30 Alkaline Phosphatase 70 Total Protein 7.9 Albumin 3.4 Globulin 4.5 H Lipase 33 Urine Color Yellow Urine Clarity Clear Urine pH 7.0 Ur Specific Hersey 1.010 Urine Protein Negative Urine Glucose (UA) Normal Urine Ketones Negative Urine Occult Blood 50 H Urine Nitrite Negative Urine Bilirubin Negative Urine Urobilinogen Normal Ur Leukocyte Esterase Negative Urine RBC 0 SEEN Urine WBC 0 SEEN Ur Squamous Epith Cells 0 SEEN Urine Bacteria 0 SEEN Urine Mucus 0 SEEN Discharge Plan Triage Chief Complaint: Nausea/Vomiting/Diarrhea Other Complaint: Abd Pain ED Midlevel Provider: Danyell Saenz ED Provider: Ryan Lopez Dx/Rx/DC Orders Clinical Impression: Nausea and vomiting, Abdominal pain Instructions: ED Vomiting (Adult) Prescriptions: New ondansetron 4 mg tablet,disintegrating 4 mg PO Q6H PRN (Reason: nausea and vomiting) Qty: 12 0RF No Action nitroglycerin 0.3 mg tablet, sublingual 0.3 mg sublingual Q5M PRN (Reason: cp) Rx Instructions: do not exceed 3 doses per episode albuterol sulfate 1 INHALER inhaler 1 - 2 puff INHALATION Q4H PRN PRN (Reason: Sob &/Or Wheezing) Ajovy Autoinjector 225 mg/1.5 mL Auto-Injector 225 mg SUBCUT QMONTH lorazepam [Ativan] 1 mg tablet 1 mg PO TID PRN (Reason: anxiety) Qty: 12 0RF esomeprazole magnesium [Nexium] 40 mg Capsule,Delayed Release(Dr/Ec) 40 mg PO DAILY Solu-Cortef 100 mg recon soln 5 - 15 mg IM TID buspirone 5 mg tablet 15 mg PO TID Patient Comments: TAKE 1 TABLET BY MOUTH THREE TIMES DAILY levothyroxine 137 mcg tablet 125 mcg PO DAILY Patient Comments: Take 1 tablet by mouth once daily. tizanidine 4 mg tablet 4 mg PO Q8H PRN (Reason: Spasms) Patient Comments: TAKE 1 TABLET BY MOUTH EVERY 8 HOURS NEEDED hydroxychloroquine 200 mg tablet 200 mg PO BID Patient Comments: Take 1 tablet by mouth twice daily. albuterol sulfate [Ventolin HFA] 90 mcg/actuation HFA aerosol inhaler 2 inh INHALATION Q4H PRN (Reason: sob) Patient Comments: Inhale 2 Puffs as instructed every 4 hours as needed. fludrocortisone 0.1 mg tablet 0.1 mg PO DAILY Patient Comments: TAKE 1 TABLET BY MOUTH EVERY DAY acarbose 25 mg tablet 25 mg PO TID Patient Comments: TAKE 1 TABLET THREE TIMES DAILY eletriptan 40 mg tablet 40 mg PO DAILY Patient Comments: Take 1 tablet at the onset of migraine. Repeat 1 dose in 2 hours, if needed. estradiol 0.0375 mg/24 hr patch weekly 0.0375 mg transdermal MO Patient Comments: Apply 1 Patch as directed one time a week. Gvoke HypoPen 2-Pack 1 mg/0.2 mL auto-injector 1 mg SUBCUT DAILY PRN PRN (Reason: Hypoglycemia) Patient Comments: Inject 1 mg subcutaneously as needed. hydrocodone-acetaminophen [hydrocodone-acetaminophen] 5-325 mg tablet 1 tab PO Q4H PRN PRN (Reason: Pain) 2 Days Qty: 10 0RF ondansetron [ondansetron] 4 mg tablet,disintegrating 8 mg PO Q8H PRN PRN (Reason: Nausea) Qty: 20 0RF ondansetron 4 mg tablet,disintegrating 4 mg PO Q8H PRN PRN (Reason: Nausea) Qty: 10 0RF hyoscyamine sulfate [Levsin/SL] 0.125 mg tablet, sublingual 0.125 mg PO TID PRN (Reason: abdominal pain) Qty: 10 0RF cyclobenzaprine 10 mg tablet 10 mg PO TID clomipramine 75 mg capsule 100 mg PO DAILY sucralfate 100 mg/mL suspension 1 g PO BID glimepiride 1 mg tablet 1 mg PO DAILY pantoprazole 40 mg tablet,delayed release (DR/EC) 40 mg PO DAILY promethazine 25 mg tablet 25 mg PO Q6H PRN PRN (Reason: Nausea) gabapentin 100 mg capsule 100 mg PO BID oxybutynin chloride 5 mg tablet 5 mg PO TID Januvia 100 mg tablet 100 mg PO DAILY lacosamide 100 mg tablet 100 mg PO BID Primary Care Provider: Kevin Stauffer Referrals: Kevin Stauffer MD [Primary Care Provider] - Activity Restrictions/Additional Instructions: Today your blood work overall looks unremarkable. Your liver enzymes are normal at 18, 30 (AST, ALT). I prescribed Zofran which is for nausea and vomiting and recommended rest and increase fluids. Follow-up with your primary care doctor. Disposition Disposition: Home, Self Care
[2023-06-09] MEDS: Ondansetron 4 MG/2 ML Vial IV (13:41)
[2023-06-09] MEDS: 0.9% Normal Saline 1,000 ML 999 ML IV (13:41)
[2023-06-09] MEDS: Ketorolac 30 MG/ML Syringe IV (13:54)
[2023-06-09 14:02] LABS: Absolute Lymphocyte Count 2.23 X10^3/uL (0.83-4.51); Absolute Neutrophil Count 10.6 X10^3/uL (2.0-7.7); Basophil# 0.03 X10^3/uL; Basophil% 0.2 % (0-1); Hematocrit 37.7 % (37-47); Hemoglobin 11.7 g/dL (12.0-15.0); Lymphocyte # 2.23 X10^3/ul (0.83-4.51); Mean Corpuscular Hgb 26.5 pg (27.0-32.0); Mean Corpuscular Volume 85.3 fL (81-99); Mean Platelet Vol. 9.6 fl (6.2-12.0); Monocyte# 0.97 X10^3/uL; NRBC Flagged by Analyzer 0 % (0-5); Neutrophil # 10.58 X10^3/uL (2.7-7.7); Neutrophil % 75.8 % (47-70); Platelet Count 364 K/mm3 (150-450); RBC Distribution Width CV 14.5 % (11.6-14.6); RBC Distribution Width SD 44.4 fl (35.1-43.9); Red Blood Count 4.42 M/mm3 (4.2-5.4)
[2023-06-09 14:21] LABS: AST(SGOT) 18 U/L (15-37); Alanine Aminotransfer ALT/SGPT 30 U/L (13-56); Albumin, Serum 3.4 g/dL (3.2-5.0); Alkaline Phosphatase 70 U/L (45-117); Anion Gap 6 (5-15); BUN 12 mg/dL (7-18); Bilirubin, Direct 0.08 mg/dL (0.00-0.30); Calcium,Total 9.5 mg/dL (8.5-10.1); Chloride 104 mmol/L (98-107); EST Glomerular Filtration Rate 89 mL/min (>60); Est Glom Filt Rate - Afr Amer 108 mL/min (>60); Estimated Creatinine Clearance 92.53 ml/min; Globulin 4.5 g/dL (2.2-4.2); Glucose 98 mg/dL (74-106); Lipase 33 U/L (13-75); Potassium 4.1 mmol/L (3.5-5.1); Protein, Total 7.9 g/dL (6.4-8.2); Sodium Level 136 mmol/L (136-145)
[2023-06-09 14:22] LABS: Bacteria 0 SEEN /hpf (None Seen); Mucous, Urine 0 SEEN /hpf (<or=2+); Red Blood Cells-Urine 0 SEEN /hpf (0-5); Squamous Epithelial Cells - UA 0 SEEN /hpf (5-10); White Blood Cells 0 SEEN /hpf (0-5)
[2023-06-09 14:26] LABS: Color, Urine Yellow (Yellow); Glucose, Dipstick Normal (Normal); Ketone-Dipstick Negative (Negative); Leukocyte Esterase-Dipstick Negative /ul (Negative); Nitrite-Dipstick Negative (Negative); Occult Blood-Urine 50 /ul (Negative); Protein-Dipstick Negative (Negative); Urine Bilirubin Dipstick Negative (Negative); Urine Clarity Clear (Clear); Urine Urobilinogen Normal (Normal)
--- NOTE | 2023-06-09 14:56 | ED.RN ---
pt was given d/c paperwork. states this is not a stomach bug, also states i have zofran at home. pt states i just want this iv out
== END 2023-06-09 14:57 | disposition home or self-care (01) ==
PROVIDERS: Physician Assistant; Emergency Provider Emergency Medicine; PCP Family Medicine; Visit Provider Emergency Medicine
DX: R11.2 Nausea with vomiting, unspecified (principal); R10.9 Unspecified abdominal pain; Z87.891 Personal history of nicotine dependence
CPT/HCPCS: 99281 ×2; 80048; 80076; 81001; 83690; 85025; 96374; 96375; 99282; J7030; A4216; J2405

== ENCOUNTER 2023-07-24 11:09 | Emergency (ER) | payer MEDICAID, SELFPAY ==
[2023-07-24 11:28] VITALS: BP 121/87; PULSE 108; RESP 14; TEMP 36.3; O2SAT 100
[2023-07-24] MEDS: Ondansetron 4 MG/2 ML Vial IV (12:55)
[2023-07-24] MEDS: 0.9% Normal Saline (1000mL) 1,000 ML 1000 ML IV (12:55)
[2023-07-24 13:00] LABS: Absolute Lymphocyte Count 2.94 X10^3/uL (0.83-4.51); Absolute Neutrophil Count 6.5 X10^3/uL (2.0-7.7); Basophil# 0.04 X10^3/uL; Basophil% 0.4 % (0-1); Hemoglobin 12.1 g/dL (12.0-15.0); Lymphocyte # 2.94 X10^3/ul (0.83-4.51); Lymphocyte % 28.2 % (19-41); Mean Corpuscular Hgb 26.2 pg (27.0-32.0); Mean Corpuscular Volume 84.6 fL (81-99); Mean Platelet Vol. 9.3 fl (6.2-12.0); Monocyte# 0.91 X10^3/uL; Monocyte% 8.7 % (0-10); NRBC Flagged by Analyzer 0 % (0-5); Neutrophil # 6.46 X10^3/uL (2.7-7.7); Neutrophil % 62.1 % (47-70); Platelet Count 344 K/mm3 (150-450); RBC Distribution Width CV 13.8 % (11.6-14.6); RBC Distribution Width SD 42.5 fl (35.1-43.9); Red Blood Count 4.61 M/mm3 (4.2-5.4); White Blood Count 10.4 K/mm3 (4.4-11.0)
[2023-07-24 13:20] LABS: AST(SGOT) 16 U/L (15-37); Alanine Aminotransfer ALT/SGPT 32 U/L (13-56); Albumin, Serum 3.4 g/dL (3.2-5.0); Alkaline Phosphatase 83 U/L (45-117); Anion Gap 6 (5-15); BUN 6 mg/dL (7-18); BUN/Creat Ratio 7.6 RATIO (10-20); Bilirubin, Direct 0.12 mg/dL (0.00-0.30); Chloride 106 mmol/L (98-107); Creatinine, Serum 0.79 mg/dL (0.55-1.02); EST Glomerular Filtration Rate 91 mL/min (>60); Est Glom Filt Rate - Afr Amer 110 mL/min (>60); Globulin 4.5 g/dL (2.2-4.2); Glucose 79 mg/dL (74-106); Lipase 19 U/L (13-75); Potassium 3.8 mmol/L (3.5-5.1); Protein, Total 7.9 g/dL (6.4-8.2); Sodium Level 140 mmol/L (136-145)
[2023-07-24 13:34] VITALS: PULSE 96; RESP 21
[2023-07-24] MEDS: MethylPREDNISolone 125 MG/2 ML Vial 60 MG IV (13:55)
[2023-07-24 14:04] LABS: Lactic Acid 1.7 mmol/L (0.4-1.9)
--- NOTE | 2023-07-24 14:38 | EX.ED.DYSGE1 ---
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 Patient states she feels like she is having an Spade's crisis. Patient follows with [facility] endocrinology. She notes that her steroid dosing was decreased last week. Today at work obtained via anus/lightheaded is her sink. She also has a reported history of fatty liver disease is she is been evaluated for and hypothyroidism (Graves' disease). There is a reported seizure history. Mom states she went to pick her up and she seemed rather out of it to the point where she pulled over into a fire department and had the fire department transported her here. Patient notes right-sided abdominal pain. Mom states her enzyme living did as well as her lactic acid which they would like checked. They are not certain why her lactic acid is elevated or what impact that has on her treatment/disposition. Patient states that over the past several days she has not been feeling quite right. She did not speak with on-call endocrinology. [facility] Medical History Abnormal uterine bleeding (AUB) Addisonian crisis Addisons disease Adenomyosis Anxiety and depression Asthma Cardiology follow-up encounter Chest pain Chronic female pelvic pain Diabetes Difficulty swallowing Dysphagia Easy bruising Endometriosis determined by laparoscopy Former smoker Gastric reflux Gastroparesis Graves disease History of diverticulitis History of echocardiogram History of IBS History of left heart catheterization History of steroid therapy History of stress test History of ulceration Low iron Migraine Mild intermittent asthma Restless legs Seizures Shortness of breath on exertion Wears glasses Home Medications albuterol sulfate 90 mcg/actuation aerosol inhaler 1 - 2 puff inhalation Q4H PRN PRN Sob &/Or Wheezing 08/04/20 [History Last Taken Unknown] acarbose 25 mg tablet 25 mg PO TID sugar 08/09/22 [History Last Taken 08/08/22] albuterol sulfate 90 mcg/actuation aerosol inhaler (Ventolin HFA) 2 inh inhalation Q4H PRN sob 08/09/22 [History Last Taken Unknown] buspirone 5 mg tablet 15 mg PO TID ANXIETY 08/09/22 [History Last Taken 08/08/22] eletriptan 40 mg tablet 40 mg PO DAILY migraines 08/09/22 [History Last Taken 2 Days Ago ~08/07/22] estradiol 0.0375 mg/24 hr weekly transdermal patch 0.0375 mg transdermal MO HORMONES 08/09/22 [History Last Taken 08/01/22] fludrocortisone 0.1 mg tablet 0.1 mg PO DAILY ADDISONS 08/09/22 [History Last Taken 08/08/22] glucagon 1 mg/0.2 mL subcutaneous auto-injector (Gvoke HypoPen 2-Pack) 1 mg subcut DAILY PRN PRN Hypoglycemia 08/09/22 [History Last Taken Unknown] hydrocortisone sod succinate 100 mg solution for injection (Solu-Cortef) 5 - 15 mg IM TID ADDISONS 08/09/22 [History Last Taken 08/09/22] hydroxychloroquine 200 mg tablet 200 mg PO BID ARTHRITIS 08/09/22 [History Last Taken 08/08/22] tizanidine 4 mg tablet 4 mg PO Q8H PRN Spasms 08/09/22 [History Last Taken 2 Days Ago ~08/07/22] ondansetron 4 mg disintegrating tablet 8 mg (2 x 4 mg) PO Q8H PRN PRN Nausea #20 tabs 11/03/22 [Rx Last Taken Unknown] ondansetron 4 mg disintegrating tablet 4 mg PO Q8H PRN PRN Nausea #10 tabs 02/12/23 [Rx Last Taken Unknown] hyoscyamine sulfate 0.125 mg sublingual tablet (Levsin/SL) 0.125 mg PO TID PRN abdominal pain #10 tabs 02/14/23 [Rx Last Taken Unknown] clomipramine 75 mg capsule 100 mg PO DAILY 02/23/23 [History Last Taken Unknown] cyclobenzaprine 10 mg tablet 10 mg PO TID 02/23/23 [History Last Taken Unknown] gabapentin 100 mg capsule 100 mg PO BID 02/23/23 [History Last Taken Unknown] glimepiride 1 mg tablet 1 mg PO DAILY 02/23/23 [History Last Taken Unknown] lacosamide 100 mg tablet 100 mg PO BID 02/23/23 [History Last Taken Unknown] oxybutynin chloride 5 mg tablet 5 mg PO TID 02/23/23 [History Last Taken Unknown] pantoprazole 40 mg tablet,delayed release 40 mg PO DAILY 02/23/23 [History Last Taken Unknown] promethazine 25 mg tablet 25 mg PO Q6H PRN PRN Nausea 02/23/23 [History Last Taken Unknown] sitagliptin phosphate 100 mg tablet (Januvia) 100 mg PO DAILY 02/23/23 [History Last Taken Unknown] sucralfate 100 mg/mL oral suspension 1 g PO BID 02/23/23 [History Last Taken Unknown] ondansetron 4 mg disintegrating tablet 4 mg PO Q6H PRN nausea and vomiting #12 tabs 06/09/23 [Rx Last Taken Unknown] atorvastatin 10 mg tablet 10 mg PO DAILY 07/24/23 [History Last Taken Unknown] clomipramine 50 mg capsule 100 mg PO DAILY 07/24/23 [History Last Taken Unknown] dexamethasone 0.5 mg tablet 0.5 mg PO DAILY 07/24/23 [History Last Taken Unknown] levothyroxine 125 mcg tablet 125 mcg PO DAILY 07/24/23 [History Last Taken Unknown] lorazepam 0.5 mg tablet 0.5 mg PO DAILY PRN anxiety 07/24/23 [History Last Taken Unknown] naloxone 4 mg/actuation nasal spray 1 spray intranasal PRN PRN OVERDOSE 07/24/23 [History Last Taken Unknown] polyethylene glycol 3350 17 gram/dose oral powder 17 g PO DAILY 07/24/23 [History Last Taken Unknown] scopolamine base 1 mg over 3 days transdermal patch 1 patch topical Q72H 07/24/23 [History Last Taken Unknown] sertraline 50 mg tablet 50 mg PO DAILY 07/24/23 [History Last Taken Unknown] Allergy/AdvReac Type Severity Reaction Status Date / Time acetaminophen Allergy Anaphylaxis Verified 07/24/23 11:27 [From Excedrin Migraine] aspirin Allergy Anaphylaxis Verified 07/24/23 11:27 [From Excedrin Migraine] azithromycin Allergy Anaphylaxis Verified 07/24/23 11:27 [From Zithromax Z-Ruiz] bacitracin Allergy Swelling Verified 07/24/23 11:27 [From Neosporin ([id number])] bacitracin zinc Allergy Swelling Verified 07/24/23 11:27 [From Neosporin ([id number])] caffeine Allergy Anaphylaxis Verified 07/24/23 11:27 [From Excedrin Migraine] latex Allergy Rash Verified 07/24/23 11:27 neomycin sulfate Allergy Swelling Verified 06/09/23 13:19 [From Neosporin ([id number])] polymyxin B Allergy Swelling Verified 07/24/23 11:27 [From Neosporin ([id number])] Family History Uncle Diabetes Cancer lung Father Diabetes Grandfather CVA (cerebral vascular accident) Cancer lung, unsure additional type Uncle Cancer brain Grandmother Cancer lung and unsure additional type Surgical History History of appendectomy History of section History of laparoscopic-assisted vaginal hysterectomy History of laparoscopy History of left salpingo-oophorectomy History of thyroidectomy History of tubal ligation History of wisdom tooth extraction Hx laparoscopic cholecystectomy Social History Smoking Status: Former smoker ROS ROS ED Constitutional Constitutional ED: Reports chills and sweats; Denies fever(s) or weight loss Eyes Eyes: Denies change in vision or diplopia ENT ENT ED: Denies ear pain, rhinorrhea or sore throat Cardiovascular Cardiovascular: Reports palpitations and other Details: Near syncope ; Denies chest pain, orthopnea or racing heartbeat Respiratory/Chest Respiratory/Chest: Denies cough, dyspnea or orthopnea Gastrointestinal Gastrointestinal: Reports abdominal pain, diarrhea, nausea and vomiting Genitourinary Genitourinary ED: Denies dysuria, hematuria or urinary frequency Musculoskeletal Musculoskeletal: Denies arthralgias or myalgias Integumentary Denies abscess or rash Neurologic Neurologic: Denies headache(s) or weakness Psychiatric Psychiatric: Denies anxiety, depression, suicidal ideation or suicidal thoughts Endocrine Endocrinology: Reports polydipsia; Denies polyphagia or polyuria Allergic/Immunologic Allergic/Immunologic ED: Denies mouth swelling, tongue swelling or urticaria EXAM Physical Exam Const Vital Signs: 07/24/23 11:28 07/24/23 13:34 Temperature 97.3 F L Temperature Source Temporal Pulse Rate 108 H 96 Respiratory Rate 14 21 H Blood Pressure 121/87 H Blood Pressure Mean 98 Pulse Ox 100 Oxygen Delivery Method Room Air Positive well nourished, well developed and obese General Appearance ED: well developed Nutritional Appearance: obese HEENT Reports normocephalic, head/scalp atraumatic and moist mucous membranes Eyes PERRL and EOMs intact bilaterally Neck no lymphadenopathy, supple and no JVD Resp normal respiratory effort and clear to auscultation bilaterally Cardio regular rate, regular rhythm and no murmurs GI Palpation: soft and tender; Negative for guarding or rebound tenderness present Back/Spine no CVA tenderness and normal ROM Extremity normal to inspection General Extremety ED: Negative for edema General Extremity: Negative for edema Neuro oriented x3 and CN's II-XII intact bilaterally Sensorium / Orientation: alert Motor Exam: strength 5/5 throughout Psych mental status grossly normal Mood & Affect: Negative for depressed or tearful Skin no rashes or lesions noted and no wounds MDM MDM MDM Narrative Medical decision making narrative: White count 10.4. Lipase is 19. Lactic acid 1.7. Normal liver enzymes. BMP is normal with a BUN of 6 creatinine 0.79. Patient received IV fluids Zofran and Solu-Medrol. From an emergent standpoint I think the patient can be discharged home. She does not appear clinically dehydrated. No evidence of obstruction. She does not have a surgical abdomen. Patient should follow-up with her treatment team. Lab Data Attestation: I reviewed the patient's lab results. Labs: Laboratory Results - last 24 hr 07/24/23 12:50 WBC 10.4 RBC 4.61 Hgb 12.1 Hct 39.0 MCV 84.6 MCH 26.2 L MCHC 31.0 L RDW Std Deviation 42.5 RDW Coeff of Renetta 13.8 Plt Count 344 MPV 9.3 Immature Gran % (Auto) 0.600 Neut % (Auto) 62.1 Lymph % (Auto) 28.2 [place] % (Auto) 8.7 Eos % (Auto) 0.0 Baso % (Auto) 0.4 Absolute Neuts (auto) 6.5 Absolute Lymphs (auto) 2.94 Nucleated RBC % 0 Sodium 140 Potassium 3.8 Chloride 106 Carbon Dioxide 28.0 Anion Gap 6 BUN 6 L Creatinine 0.79 Est GFR (MDRD) Af Amer 110 Est GFR (MDRD) Non-Af 91 BUN/Creatinine Ratio 7.6 L Glucose 79 Lactic Acid 1.7 Calcium 9.0 Total Bilirubin 0.50 Direct Bilirubin 0.12 AST 16 ALT 32 Alkaline Phosphatase 83 Total Protein 7.9 Albumin 3.4 Globulin 4.5 H Lipase 19 Discharge Plan Triage Chief Complaint: Nausea/Vomiting ED Provider: Franko Crowley Dx/Rx/DC Orders Clinical Impression: Dizziness, Spade's disease, Abdominal pain, vomiting, and diarrhea Instructions: When You Have Spade Disease Prescriptions: No Action albuterol sulfate 1 INHALER inhaler 1 - 2 puff INHALATION Q4H PRN PRN (Reason: Sob &/Or Wheezing) Solu-Cortef 100 mg recon soln 5 - 15 mg IM TID buspirone 5 mg tablet 15 mg PO TID Patient Comments: TAKE 1 TABLET BY MOUTH THREE TIMES DAILY tizanidine 4 mg tablet 4 mg PO Q8H PRN (Reason: Spasms) Patient Comments: TAKE 1 TABLET BY MOUTH EVERY 8 HOURS NEEDED hydroxychloroquine 200 mg tablet 200 mg PO BID Patient Comments: Take 1 tablet by mouth twice daily. albuterol sulfate [Ventolin HFA] 90 mcg/actuation HFA aerosol inhaler 2 inh INHALATION Q4H PRN (Reason: sob) Patient Comments: Inhale 2 Puffs as instructed every 4 hours as needed. fludrocortisone 0.1 mg tablet 0.1 mg PO DAILY Patient Comments: TAKE 1 TABLET BY MOUTH EVERY DAY acarbose 25 mg tablet 25 mg PO TID Patient Comments: TAKE 1 TABLET THREE TIMES DAILY eletriptan 40 mg tablet 40 mg PO DAILY Patient Comments: Take 1 tablet at the onset of migraine. Repeat 1 dose in 2 hours, if needed. estradiol 0.0375 mg/24 hr patch weekly 0.0375 mg transdermal MO Patient Comments: Apply 1 Patch as directed one time a week. Gvoke HypoPen 2-Pack 1 mg/0.2 mL auto-injector 1 mg SUBCUT DAILY PRN PRN (Reason: Hypoglycemia) Patient Comments: Inject 1 mg subcutaneously as needed. ondansetron [ondansetron] 4 mg tablet,disintegrating 8 mg PO Q8H PRN PRN (Reason: Nausea) Qty: 20 0RF ondansetron 4 mg tablet,disintegrating 4 mg PO Q8H PRN PRN (Reason: Nausea) Qty: 10 0RF hyoscyamine sulfate [Levsin/SL] 0.125 mg tablet, sublingual 0.125 mg PO TID PRN (Reason: abdominal pain) Qty: 10 0RF cyclobenzaprine 10 mg tablet 10 mg PO TID clomipramine 75 mg capsule 100 mg PO DAILY sucralfate 100 mg/mL suspension 1 g PO BID glimepiride 1 mg tablet 1 mg PO DAILY pantoprazole 40 mg tablet,delayed release (DR/EC) 40 mg PO DAILY promethazine 25 mg tablet 25 mg PO Q6H PRN PRN (Reason: Nausea) gabapentin 100 mg capsule 100 mg PO BID oxybutynin chloride 5 mg tablet 5 mg PO TID Januvia 100 mg tablet 100 mg PO DAILY lacosamide 100 mg tablet 100 mg PO BID ondansetron 4 mg tablet,disintegrating 4 mg PO Q6H PRN (Reason: nausea and vomiting) Qty: 12 0RF lorazepam 0.5 mg tablet 0.5 mg PO DAILY PRN (Reason: anxiety) Patient Comments: Take 1 tablet by mouth once daily as needed for up to 30 days. dexamethasone 0.5 mg tablet 0.5 mg PO DAILY Patient Comments: TAKE 1 TABLET BY MOUTH EVERY 6 HOURS atorvastatin 10 mg tablet 10 mg PO DAILY Patient Comments: TAKE 1 TABLET BY MOUTH ONCE DAILY levothyroxine 125 mcg tablet 125 mcg PO DAILY Patient Comments: Take 1 tablet by mouth once daily. M=S AND 1.5 ON MONDAY polyethylene glycol 3350 17 gram/dose powder 17 g PO DAILY Patient Comments: Take 17 g by mouth once daily. Dissolve dose in 4 - 8 ounces of liquid and take as directed. sertraline 50 mg tablet 50 mg PO DAILY Patient Comments: Take 1 tablet by mouth once daily. Take 1/2 tab once a day orally for one week then 1 tab once a day scopolamine base 1 mg over 3 days patch 3 day 1 patch topical Q72H Patient Comments: Place 1 patch on skin every 72 hours. naloxone 4 mg/actuation spray,non-aerosol 1 spray INTRANASAL PRN PRN (Reason: OVERDOSE) Patient Comments: [place] 0.1 mL (contents of one device) into one nostril upon signs of opioid overdose. Call 911. May repeat once if no response within 2-3 minutes. clomipramine 50 mg capsule 100 mg PO DAILY Patient Comments: TAKE 2 CAPSULES BY MOUTH EVERY DAY AT BEDTIME Primary Care Provider: Kevin Stauffer Referrals: Kevin Stauffer MD [Primary Care Provider] - As Needed Disposition Disposition: Home, Self Care
--- NOTE | 2023-07-24 14:43 | ED.RN ---
Patient requested IV to be taken out prior to recieving d/c paperwork. States I don't need the paperwork.
== END 2023-07-24 14:44 | disposition home or self-care (01) ==
PROVIDERS: Emergency Provider Emergency Medicine; PCP Family Medicine; Visit Provider Emergency Medicine
DX: R42 Dizziness and giddiness (principal); E27.1 Primary adrenocortical insufficiency; R11.2 Nausea with vomiting, unspecified; R19.7 Diarrhea, unspecified; E66.9 Obesity, unspecified; Z79.899 Other long term (current) drug therapy; Z87.891 Personal history of nicotine dependence
CPT/HCPCS: 80048; 80076; 83605; 83690; 85025; 96374; 96375; 99283; J7030; A4216; J2405

== ENCOUNTER 2024-03-08 11:10 | Emergency (ER) | payer MEDICAID, SELFPAY ==
[2024-03-08 11:12] VITALS: BP 132/85; PULSE 85; RESP 18; TEMP 36.6; O2SAT 98; BMI 36.1
--- NOTE | 2024-03-08 11:51 | EKG12_ITS ---
Test Reason : CP Blood Pressure : / mmHG Vent. Rate : 092 BPM Atrial Rate : 092 BPM P-R Int : 164 ms QRS Dur : 100 ms QT Int : 362 ms P-R-T Axes : 034 029 269 degrees QTc Int : 447 ms Normal sinus rhythm ST & T wave abnormality, consider lateral ischemia Abnormal ECG Confirmed by Chuck Mackenzie ([id number]), editor news ABDOUL MUSTAFA ([id number]) on 03/11/2024 8:46:46 AM Referred By: HERB/MANI Confirmed By:Chuck Mackenzie
[2024-03-08 12:28] LABS: Absolute Lymphocyte Count 2.78 X10^3/uL (0.83-4.51); Absolute Neutrophil Count 4.6 X10^3/uL (2.0-7.7); Basophil# 0.03 X10^3/uL; Basophil% 0.4 % (0-1); Hematocrit 36.9 % (37-47); Hemoglobin 11.3 g/dL (12.0-15.0); Lymphocyte # 2.78 X10^3/ul (0.83-4.51); Lymphocyte % 33.7 % (19-41); Mean Corp Hgb Conc 30.6 g/dL (32-36); Mean Corpuscular Hgb 24.3 pg (27.0-32.0); Mean Corpuscular Volume 79.4 fL (81-99); Mean Platelet Vol. 9.6 fl (6.2-12.0); Monocyte# 0.83 X10^3/uL; Monocyte% 10.1 % (0-10); NRBC Flagged by Analyzer 0 % (0-5); Neutrophil # 4.56 X10^3/uL (2.7-7.7); Neutrophil % 55.3 % (47-70); Platelet Count 313 K/mm3 (150-450); RBC Distribution Width CV 16.2 % (11.6-14.6); RBC Distribution Width SD 46.5 fl (35.1-43.9); Red Blood Count 4.65 M/mm3 (4.2-5.4); White Blood Count 8.2 K/mm3 (4.4-11.0)
--- NOTE | 2024-03-08 12:45 | RAD_ITS ---
STUDY: X-RAY CHEST REASON FOR EXAM: Female, 29 years old. Chest pain TECHNIQUE: Single AP portable view of the chest. COMPARISON: Comparison is made with prior study February 04, 2023. FINDINGS: EKG electrodes are seen. The lungs are clear and expanded. There is no demonstrated pleural abnormality. Normal size heart. Normal mediastinum and phillip. Normal visualized pulmonary arteries. Normal visualized aortic arch and descending thoracic aorta. Normal visualized thoracic spine. Normal visualized ribs, clavicles, and shoulders. There is no demonstrated abnormality of the visualized soft tissue structures of the upper abdomen. RAD/Chest 1 View (Portable) IMPRESSION: Normal x-ray examination of the chest. Electronically Signed: Lonnie Kim MD at 13:15 EDT ,
[2024-03-08 12:52] LABS: Lactic Acid 2.1 mmol/L (0.4-1.9)
[2024-03-08 12:53] LABS: AST(SGOT) 33 U/L (15-37); Alanine Aminotransfer ALT/SGPT 57 U/L (13-56); Albumin, Serum 3.2 g/dL (3.2-5.0); Alkaline Phosphatase 100 U/L (45-117); Anion Gap 4 (5-15); BUN 5 mg/dL (7-18); BUN/Creat Ratio 5.8 RATIO (10-20); Calcium,Total 8.8 mg/dL (8.5-10.1); Chloride 107 mmol/L (98-107); Creatinine, Serum 0.86 mg/dL (0.55-1.02); EST Glomerular Filtration Rate 82 mL/min (>60); Est Glom Filt Rate - Afr Amer 99 mL/min (>60); Estimated Creatinine Clearance 110.13 ml/min; Globulin 4.2 g/dL (2.2-4.2); Glucose 87 mg/dL (74-106); Magnesium 1.8 mg/dL (1.6-2.6); Potassium 3.5 mmol/L (3.5-5.1); Protein, Total 7.4 g/dL (6.4-8.2); Sodium Level 138 mmol/L (136-145); Thyroid Stim Hormone (TSH) 2.92 uIU/mL (0.358-3.74); Troponin-I HS < 3 pg/mL (3.0-54.0)
--- NOTE | 2024-03-08 12:59 | EDS_ITS ---
HPI History of Present Illness Chief Complaint: Chest Pain Informant: patient Narrative Narrative: 29-year-old female presenting to the emergency room stating she does not feel well. Patient states over the past several days she has had nausea dizziness when she tries to move. She states she is having difficulty doing her daily routine. She was seen in the emergency department at an outside facility last night where she tells me that her TSH was 9 and her magnesium was low they wanted to transfer her to [facility] because the doctor did not have much experience with her endocrinology issues but they ended up discharging her home. She called the ambulance today due to continued symptoms. Patient states that her heart is racing because she is hyperthyroid. I explained to her that if her TSH was elevated it would be more that she is hypothyroid and that is consistent with what her doctors wrote on her papers last night. Patient denies any diarrhea or fevers. She states that she has been trying to see her health insurance specialist for 5 months and has an appointment in several weeks. [facility] Medical History Addisonian crisis Addisons disease Gastroparesis Dysphagia Wears glasses History of steroid therapy Diabetes Low iron Easy bruising Restless legs Seizures Difficulty swallowing History of ulceration History of IBS History of diverticulitis Gastric reflux Former smoker Asthma Shortness of breath on exertion Cardiology follow-up encounter History of echocardiogram History of stress test Chest pain History of left heart catheterization Anxiety and depression Graves disease Abnormal uterine bleeding (AUB) Endometriosis determined by laparoscopy Adenomyosis Chronic female pelvic pain Migraine Mild intermittent asthma Home Medications ?Medication ?Instructions ?Recorded ?Last Taken ?Type albuterol sulfate 90 mcg/actuation 1 - 2 puff inhalation Q4H PRN PRN 08/04/20 Unknown History aerosol inhaler Sob &/Or Wheezing acarbose 25 mg tablet 25 mg PO TID sugar 08/09/22 08/08/22 History albuterol sulfate 90 mcg/actuation 2 inh inhalation Q4H PRN sob 08/09/22 Unknown History aerosol inhaler (Ventolin HFA) buspirone 5 mg tablet 15 mg PO TID ANXIETY 08/09/22 08/08/22 History eletriptan 40 mg tablet 40 mg PO DAILY migraines 08/09/22 2 Days Ago History ~08/07/22 estradiol 0.0375 mg/24 hr weekly 0.0375 mg transdermal MO HORMONES 08/09/22 08/01/22 History transdermal patch fludrocortisone 0.1 mg tablet 0.1 mg PO DAILY ADDISONS 08/09/22 08/08/22 History glucagon 1 mg/0.2 mL subcutaneous 1 mg subcut DAILY PRN PRN 08/09/22 Unknown History auto-injector (Gvoke HypoPen Hypoglycemia 2-Pack) hydrocortisone sod succinate 100 5 - 15 mg IM TID ADDISONS 08/09/22 08/09/22 History mg solution for injection (Solu-Cortef) hydroxychloroquine 200 mg tablet 200 mg PO BID ARTHRITIS 08/09/22 08/08/22 History tizanidine 4 mg tablet 4 mg PO Q8H PRN Spasms 08/09/22 2 Days Ago History ~08/07/22 ondansetron 4 mg disintegrating 8 mg (2 x 4 mg) PO Q8H PRN PRN 11/03/22 Unknown Rx tablet Nausea #20 tabs ondansetron 4 mg disintegrating 4 mg PO Q8H PRN PRN Nausea #10 tabs 02/12/23 Unknown Rx tablet hyoscyamine sulfate 0.125 mg 0.125 mg PO TID PRN abdominal pain 02/14/23 Unknown Rx sublingual tablet (Levsin/SL) #10 tabs clomipramine 75 mg capsule 100 mg PO DAILY 02/23/23 Unknown History cyclobenzaprine 10 mg tablet 10 mg PO TID 02/23/23 Unknown History gabapentin 100 mg capsule 100 mg PO BID 02/23/23 Unknown History glimepiride 1 mg tablet 1 mg PO DAILY 02/23/23 Unknown History lacosamide 100 mg tablet 100 mg PO BID 02/23/23 Unknown History oxybutynin chloride 5 mg tablet 5 mg PO TID 02/23/23 Unknown History pantoprazole 40 mg tablet,delayed 40 mg PO DAILY 02/23/23 Unknown History release promethazine 25 mg tablet 25 mg PO Q6H PRN PRN Nausea 02/23/23 Unknown History sitagliptin phosphate 100 mg 100 mg PO DAILY 02/23/23 Unknown History tablet (Januvia) sucralfate 100 mg/mL oral 1 g PO BID 02/23/23 Unknown History suspension ondansetron 4 mg disintegrating 4 mg PO Q6H PRN nausea and 06/09/23 Unknown Rx tablet vomiting #12 tabs atorvastatin 10 mg tablet 10 mg PO DAILY 07/24/23 Unknown History clomipramine 50 mg capsule 100 mg PO DAILY 07/24/23 Unknown History dexamethasone 0.5 mg tablet 0.5 mg PO DAILY 07/24/23 Unknown History levothyroxine 125 mcg tablet 125 mcg PO DAILY 07/24/23 Unknown History lorazepam 0.5 mg tablet 0.5 mg PO DAILY PRN anxiety 07/24/23 Unknown History naloxone 4 mg/actuation nasal spray 1 spray intranasal PRN PRN OVERDOSE 07/24/23 Unknown History polyethylene glycol 3350 17 17 g PO DAILY 07/24/23 Unknown History gram/dose oral powder scopolamine base 1 mg over 3 days 1 patch topical Q72H 07/24/23 Unknown History transdermal patch sertraline 50 mg tablet 50 mg PO DAILY 07/24/23 Unknown History Allergy/AdvReac Type Severity Reaction Status Date / Time acetaminophen (From Excedrin Allergy Anaphylaxis Verified 03/08/24 11:17 Migraine) aspirin (From Excedrin Allergy Anaphylaxis Verified 03/08/24 11:17 Migraine) azithromycin (From Zithromax Allergy Anaphylaxis Verified 03/08/24 11:17 Z-Ruiz) bacitracin (From Neosporin Allergy Swelling Verified 03/08/24 11:17 ([id number])) bacitracin zinc (From Allergy Swelling Verified 03/08/24 11:17 Neosporin ([id number])) caffeine (From Excedrin Allergy Anaphylaxis Verified 03/08/24 11:17 Migraine) latex Allergy Rash Verified 03/08/24 11:17 neomycin sulfate (From Allergy Swelling Verified 03/08/24 11:17 Neosporin ([id number])) polymyxin B (From Neosporin Allergy Swelling Verified 03/08/24 11:17 ([id number])) Family History Uncle Diabetes Cancer lung Father Diabetes Grandfather CVA (cerebral vascular accident) Cancer lung, unsure additional type Uncle Cancer brain Grandmother Cancer lung and unsure additional type Surgical History History of appendectomy Hx laparoscopic cholecystectomy History of left salpingo-oophorectomy History of tubal ligation History of laparoscopic-assisted vaginal hysterectomy History of laparoscopy History of wisdom tooth extraction History of thyroidectomy History of section Social History Smoking Status: Former smoker ROS ROS ED ROS Narrative Dizziness with movement Constitutional Constitutional ED: Reports chills; Denies fever(s) or weight loss Eyes Eyes: Denies change in vision or diplopia ENT ENT ED: Denies ear pain, rhinorrhea or sore throat Cardiovascular Cardiovascular: Denies chest pain, orthopnea, palpitations or racing heartbeat Respiratory/Chest Respiratory/Chest: Denies cough, dyspnea or orthopnea Gastrointestinal Gastrointestinal: Reports nausea; Denies abdominal pain, diarrhea or vomiting Genitourinary Genitourinary ED: Denies dysuria, hematuria or urinary frequency Musculoskeletal Musculoskeletal: Denies arthralgias or myalgias Integumentary Denies abscess or rash Neurologic Neurologic: Denies headache(s) or weakness Psychiatric Psychiatric: Denies anxiety, depression, suicidal ideation or suicidal thoughts Endocrine Endocrinology: Denies polydipsia, polyphagia or polyuria Allergic/Immunologic Allergic/Immunologic ED: Denies mouth swelling, tongue swelling or urticaria EXAM Physical Exam Const Vital Signs: 03/08/24 11:12 03/08/24 11:18 03/08/24 13:11 Temperature 98 F Temperature Source Oral Pulse Rate 85 82 Pulse Rate [Lying] Pulse Rate [Sitting (for 1 minute prior to obtaining)] Pulse Rate [Standing (for 1 minute prior to obtaining)] Respiratory Rate 18 16 Respiratory Effort Normal Blood Pressure 132/85 H 118/90 H Blood Pressure [Lying] Blood Pressure [Sitting (for 1 minute prior to obtaining)] Blood Pressure [Standing (for 1 minute prior to obtaining)] Blood Pressure Mean 100 99 Blood Pressure Mean [Lying] Blood Pressure Mean [Sitting (for 1 minute prior to obtaining)] Blood Pressure Mean [Standing (for 1 minute prior to obtaining)] Pulse Ox 98 100 Oxygen Delivery Method Room Air 03/08/24 13:24 Temperature Temperature Source Pulse Rate Pulse Rate [Lying] 78 Pulse Rate [Sitting (for 1 minute prior to obtaining)] 92 Pulse Rate [Standing (for 1 minute prior to obtaining)] 120 H Respiratory Rate Respiratory Effort Blood Pressure Blood Pressure [Lying] 115/59 L Blood Pressure [Sitting (for 1 minute prior to obtaining)] 122/79 H Blood Pressure [Standing (for 1 minute prior to obtaining)] 118/100 H Blood Pressure Mean Blood Pressure Mean [Lying] 77 Blood Pressure Mean [Sitting (for 1 minute prior to obtaining)] 93 Blood Pressure Mean [Standing (for 1 minute prior to obtaining)] 106 Pulse Ox Oxygen Delivery Method Positive well nourished, well developed and obese General Appearance ED: well developed Nutritional Appearance: obese HEENT Reports normocephalic, head/scalp atraumatic and moist mucous membranes Eyes PERRL and EOMs intact bilaterally Neck no lymphadenopathy, supple and no JVD Resp normal respiratory effort and clear to auscultation bilaterally Cardio regular rate, regular rhythm and no murmurs GI normal to inspection, nondistended, normoactive bowel sounds and non-tender Palpation: soft Back/Spine no CVA tenderness and normal ROM Extremity normal to inspection General Extremety ED: Negative for edema General Extremity: Negative for edema Neuro oriented x3 and CN's II-XII intact bilaterally Sensorium / Orientation: alert Motor Exam: strength 5/5 throughout Psych mental status grossly normal Mood & Affect: Negative for depressed or tearful Skin no rashes or lesions noted and no wounds MDM MDM MDM Narrative Medical decision making narrative: White count 8.2 hemoglobin 11.3 which is chronic platelet count of 313. Creatinine is normal 0.86 BUN of 5 CO2 is 27 anion gap is 4. Lactic acid 2.1. This is of questionable clinical significance though she is not showing any other shock. Troponin is normal urinalysis shows the patient to appears to be well-hydrated with no obvious infection. Patient was asked to stand for vital signs and did not feel that she could do it. Nursing notes that the patient was not hypotensive but was tachycardic. Tachycardia could be explained by the patient's behavior during the testing. At this point I do not think that the patient is in a Nye's crisis. I will recommend that she follow-up with her doctors continue oral hydration take her nausea medications as it was prescribed last night. Of note I did recheck her TSH today which came back in the normal range. I am not sure why there would be a large discrepancy between her TSH level that she self-reports last night and ours. History & Record Review Discussion w/independent historian: Patient Additional record(s) reviewed:: Prior ED visit and Prior labs Lab Data Attestation: I reviewed the patient's lab results. Labs: Laboratory Results - last 24 hr 03/08/24 03/08/24 12:10 13:50 WBC 8.2 RBC 4.65 Hgb 11.3 L Hct 36.9 L MCV 79.4 L MCH 24.3 L MCHC 30.6 L RDW Std Deviation 46.5 H RDW Coeff of Renetta 16.2 H Plt Count 313 MPV 9.6 Immature Gran % (Auto) 0.500 Neut % (Auto) 55.3 Lymph % (Auto) 33.7 Howard % (Auto) 10.1 H Eos % (Auto) 0.0 Baso % (Auto) 0.4 Absolute Neuts (auto) 4.6 Absolute Lymphs (auto) 2.78 Nucleated RBC % 0 Sodium 138 Potassium 3.5 Chloride 107 Carbon Dioxide 27.0 Anion Gap 4 L BUN 5 L Creatinine 0.86 Estim Creat Clear Calc 110.13 Est GFR (MDRD) Af Amer 99 Est GFR (MDRD) Non-Af 82 BUN/Creatinine Ratio 5.8 L Glucose 87 Lactic Acid 2.1 H* Calcium 8.8 Magnesium 1.8 Total Bilirubin 0.90 Direct Bilirubin 0.20 AST 33 ALT 57 H Alkaline Phosphatase 100 Troponin I High Sens < 3 L Total Protein 7.4 Albumin 3.2 Globulin 4.2 TSH 2.92 Urine Color Yellow Urine Clarity Sl. Cloudy Urine pH 8.0 Ur Specific [place] 1.010 Urine Protein Negative Urine Glucose (UA) Normal Urine Ketones Negative Urine Occult Blood 10 H Urine Nitrite Negative Urine Bilirubin Negative Urine Urobilinogen 1 H Ur Leukocyte Esterase Negative Urine RBC 0-5 SEEN Urine WBC 0 SEEN Ur Squamous Epith Cells 0-5 SEEN Urine Bacteria 0 SEEN Urine Mucus 0 SEEN Urine Test Negative Radiography Diagnostic Testing: Clinical Impression(s) from Imaging Studies Chest X-Ray 03/08/24 12:45 IMPRESSION: Normal x-ray examination of the chest. Electronically Signed: Lonnie Kim MD at 13:15 EDT , EKG Initial EKG: Attestation: I personally reviewed and interpreted this EKG as follows: Comments: Normal sinus rhythm ventricular rate of 92 bpm Discharge Plan Triage Chief Complaint: Chest Pain ED Provider: Franko Crowley Dx/Rx/DC Orders Clinical Impression: Dizziness, Nausea, Davonte's disease Prescriptions: No Action albuterol sulfate 1 INHALER inhaler 1 - 2 puff INHALATION Q4H PRN PRN (Reason: Sob &/Or Wheezing) Solu-Cortef 100 mg recon soln 5 - 15 mg IM TID buspirone 5 mg tablet 15 mg PO TID Patient Comments: TAKE 1 TABLET BY MOUTH THREE TIMES DAILY tizanidine 4 mg tablet 4 mg PO Q8H PRN (Reason: Spasms) Patient Comments: TAKE 1 TABLET BY MOUTH EVERY 8 HOURS NEEDED hydroxychloroquine 200 mg tablet 200 mg PO BID Patient Comments: Take 1 tablet by mouth twice daily. albuterol sulfate [Ventolin HFA] 90 mcg/actuation HFA aerosol inhaler 2 inh INHALATION Q4H PRN (Reason: sob) Patient Comments: Inhale 2 Puffs as instructed every 4 hours as needed. fludrocortisone 0.1 mg tablet 0.1 mg PO DAILY Patient Comments: TAKE 1 TABLET BY MOUTH EVERY DAY acarbose 25 mg tablet 25 mg PO TID Patient Comments: TAKE 1 TABLET THREE TIMES DAILY eletriptan 40 mg tablet 40 mg PO DAILY Patient Comments: Take 1 tablet at the onset of migraine. Repeat 1 dose in 2 hours, if needed. estradiol 0.0375 mg/24 hr patch weekly 0.0375 mg transdermal MO Patient Comments: Apply 1 Patch as directed one time a week. Gvoke HypoPen 2-Pack 1 mg/0.2 mL auto-injector 1 mg SUBCUT DAILY PRN PRN (Reason: Hypoglycemia) Patient Comments: Inject 1 mg subcutaneously as needed. ondansetron [ondansetron] 4 mg tablet,disintegrating 8 mg PO Q8H PRN PRN (Reason: Nausea) Qty: 20 0RF ondansetron 4 mg tablet,disintegrating 4 mg PO Q8H PRN PRN (Reason: Nausea) Qty: 10 0RF hyoscyamine sulfate [Levsin/SL] 0.125 mg tablet, sublingual 0.125 mg PO TID PRN (Reason: abdominal pain) Qty: 10 0RF cyclobenzaprine 10 mg tablet 10 mg PO TID clomipramine 75 mg capsule 100 mg PO DAILY sucralfate 100 mg/mL suspension 1 g PO BID glimepiride 1 mg tablet 1 mg PO DAILY pantoprazole 40 mg tablet,delayed release (DR/EC) 40 mg PO DAILY promethazine 25 mg tablet 25 mg PO Q6H PRN PRN (Reason: Nausea) gabapentin 100 mg capsule 100 mg PO BID oxybutynin chloride 5 mg tablet 5 mg PO TID Januvia 100 mg tablet 100 mg PO DAILY lacosamide 100 mg tablet 100 mg PO BID ondansetron 4 mg tablet,disintegrating 4 mg PO Q6H PRN (Reason: nausea and vomiting) Qty: 12 0RF lorazepam 0.5 mg tablet 0.5 mg PO DAILY PRN (Reason: anxiety) Patient Comments: Take 1 tablet by mouth once daily as needed for up to 30 days. dexamethasone 0.5 mg tablet 0.5 mg PO DAILY Patient Comments: TAKE 1 TABLET BY MOUTH EVERY 6 HOURS atorvastatin 10 mg tablet 10 mg PO DAILY Patient Comments: TAKE 1 TABLET BY MOUTH ONCE DAILY levothyroxine 125 mcg tablet 125 mcg PO DAILY Patient Comments: Take 1 tablet by mouth once daily. M=S AND 1.5 ON MONDAY polyethylene glycol 3350 17 gram/dose powder 17 g PO DAILY Patient Comments: Take 17 g by mouth once daily. Dissolve dose in 4 - 8 ounces of liquid and take as directed. sertraline 50 mg tablet 50 mg PO DAILY Patient Comments: Take 1 tablet by mouth once daily. Take 1/2 tab once a day orally for one week then 1 tab once a day scopolamine base 1 mg over 3 days patch 3 day 1 patch topical Q72H Patient Comments: Place 1 patch on skin every 72 hours. naloxone 4 mg/actuation spray,non-aerosol 1 spray INTRANASAL PRN PRN (Reason: OVERDOSE) Patient Comments: [place] 0.1 mL (contents of one device) into one nostril upon signs of opioid overdose. Call 911. May repeat once if no response within 2-3 minutes. clomipramine 50 mg capsule 100 mg PO DAILY Patient Comments: TAKE 2 CAPSULES BY MOUTH EVERY DAY AT BEDTIME Primary Care Provider: Kevin Stauffer Referrals: Kevin Stauffer MD [Primary Care Provider] - 3-5 Days Activity Restrictions/Additional Instructions: Please mushroom picker your nausea medication as prescribed last night. I would encourage oral hydration. Please schedule follow-up with your primary care doctor Print Language: Mozambican Disposition Disposition: Home, Self Care
[2024-03-08 13:11] VITALS: BP 118/90; PULSE 82; RESP 16; O2SAT 100
[2024-03-08 13:24] VITALS: BP 115/59; BP 118/100; BP 122/79; PULSE 120; PULSE 78; PULSE 92
[2024-03-08 13:54] LABS: Bacteria 0 SEEN /hpf (None Seen); Mucous, Urine 0 SEEN /hpf (<or=2+); White Blood Cells 0 SEEN /hpf (0-5)
[2024-03-08 14:09] LABS: Color, Urine Yellow (Yellow); Glucose, Dipstick Normal (Normal); Ketone-Dipstick Negative (Negative); Leukocyte Esterase-Dipstick Negative /ul (Negative); Nitrite-Dipstick Negative (Negative); Occult Blood-Urine 10 /ul (Negative); Protein-Dipstick Negative (Negative); Urine Bilirubin Dipstick Negative (Negative); Urine Clarity Sl. Cloudy (Clear); Urine Urobilinogen 1 mg/dl (Normal)
[2024-03-08 14:28] LABS: Red Blood Cells-Urine 0-5 SEEN /hpf (0-5); Squamous Epithelial Cells - UA 0-5 SEEN /hpf (5-10)
[2024-03-08 14:29] LABS: Internal QC Validated? YES +Cl - CLEAR BKGD; Pregnancy, Urine Negative Negative; Record Kit Lot#,Urine Preg HCG0000718089
[2024-03-08 15:00] VITALS: BP 116/88; PULSE 80; RESP 16; O2SAT 100
[2024-03-08 15:16] VITALS: BP 108/82; PULSE 98; RESP 16; TEMP 36.8; O2SAT 98
--- NOTE | 2024-03-08 15:25 | ED.RN ---
1520: THE PATIENT WAS NOT PLEASED WITH THE DOCTOR DURING THIS VISIT. STATING HE DIDN'T DO ANYTHING THIS TIME OR LAST TIME, HE DOESN'T UNDERSTAND THE DISEASE. SHE WAS UNDERSTANDING OF THE D/C INSTRUCTIONS. SHE WAS OFFERED THE PATIENT ADVOCATE NUMBER AND REFUSED IT. I INSTRUCTED THE PATIENT TO CALL AT A LATER TIME IF SHE FELT IT WAS NECESSARY. PATIENT ASSISTED INTO WHEELCHAIR AND TAKEN TO THE WAITING ROOM WITH HER SON. I WAS INFORMED HER WOULD BE COMING TO GET HER.
[2024-03-08 16:22] LABS: Reflex Lactate? Y
== END 2024-03-08 15:25 | disposition home or self-care (01) ==
PROVIDERS: Emergency Provider Emergency Medicine; PCP Family Medicine; Visit Provider Emergency Medicine
DX: R42 Dizziness and giddiness (principal); E27.1 Primary adrenocortical insufficiency; R11.0 Nausea; J45.909 Unspecified asthma, uncomplicated; Z87.891 Personal history of nicotine dependence
CPT/HCPCS: 71045; 80048; 80076; 81001; 81025; 83605; 83735; 84443; 84484; 85025; 93005; 99285

== ENCOUNTER 2024-04-01 10:54 | Emergency (ER) | payer MEDICAID, SELFPAY ==
[2024-04-01] VITALS (10 sets, daily range): BP systolic 89–124; BP diastolic 59–93; PULSE 83–109; RESP 11–23; TEMP 36.2–36.7; O2SAT 92–98; BMI 37.0
--- NOTE | 2024-04-01 11:21 | CT_ITS ---
STUDY: CT BRAIN WITHOUT CONTRAST REASON FOR EXAM: Female, 29 years old. Syncope, head trauma RADIATION DOSAGE (If Supplied By Facility): CTDIvol = ( 44.99 ) mGy, DLP = ( 796.11 ) mGycm TECHNIQUE: Transaxial CT imaging of the brain was performed without administration of intravenous contrast material. Individualized dose optimization techniques were used for this CT. COMPARISON: Comparison is made with prior study dated October 31, 2022. FINDINGS: Normal soft tissue structures. Normal calvarium. Normal size ventricles and extra-axial spaces for the patient''s age. Normal white matter tracts of the cerebral hemispheres. Normal basal ganglia and thalami. Normal brainstem. Normal cerebellum. There is no intracranial hemorrhage. There are no findings of an acute ischemic infarction. Normal visualized paranasal sinuses. CT/Brain/Head without Contrast IMPRESSION: Normal unenhanced CT scan of the brain. Electronically Signed: Lonnie Kim MD at 12:22 EDT ,
[2024-04-01] MEDS: 0.9% Normal Saline (1000mL) 1,000 ML 999 ML IV (11:29)
[2024-04-01] MEDS: Hydrocortisone Sod Succinate 100 MG/2 ML Vial IV (11:29)
--- NOTE | 2024-04-01 11:30 | EKG12_ITS ---
Test Reason : Blood Pressure : / mmHG Vent. Rate : 088 BPM Atrial Rate : 088 BPM P-R Int : 170 ms QRS Dur : 096 ms QT Int : 380 ms P-R-T Axes : 042 021 000 degrees QTc Int : 459 ms Normal sinus rhythm ST & T wave abnormality, consider lateral ischemia Abnormal ECG Confirmed by Chuck Mackenzie ([id number]), news video editor SOILA SORIANO ([id number]) on 04/02/2024 9:11:51 AM Referred By: SUSY Confirmed By:Chuck Mackenzie
--- NOTE | 2024-04-01 11:35 | RAD_ITS ---
STUDY: X-RAY CHEST REASON FOR EXAM: Female, 29 years old. Chest pain TECHNIQUE: Single AP portable view of the chest. COMPARISON: Comparison is made with prior study March 08, 2024. FINDINGS: EKG electrodes are seen. The lungs are clear and expanded. Scattered calcified granulomas. There is no demonstrated pleural abnormality. Normal size heart. Normal mediastinum and phillip. Normal visualized pulmonary arteries. Normal visualized aortic arch and descending thoracic aorta. Normal visualized thoracic spine. Normal visualized ribs, clavicles, and shoulders. There is no demonstrated abnormality of the visualized soft tissue structures of the upper abdomen. RAD/Chest 1 View (Portable) IMPRESSION: Normal x-ray examination of the chest. Electronically Signed: Lonnie Kim MD at 12:22 EDT ,
[2024-04-01] MEDS: Metoclopramide 10 MG/2 ML Vial 5 MG IV (12:21)
[2024-04-01 12:37] LABS: Absolute Lymphocyte Count 2.23 X10^3/uL (0.83-4.51); Absolute Neutrophil Count 5.5 X10^3/uL (2.0-7.7); Basophil# 0.05 X10^3/uL; Basophil% 0.6 % (0-1); Hematocrit 41.1 % (37-47); Hemoglobin 12.8 g/dL (12.0-15.0); Lymphocyte # 2.23 X10^3/ul (0.83-4.51); Lymphocyte % 25.6 % (19-41); Mean Corp Hgb Conc 31.1 g/dL (32-36); Mean Corpuscular Hgb 24.3 pg (27.0-32.0); Mean Platelet Vol. 9.7 fl (6.2-12.0); Monocyte# 0.84 X10^3/uL; Monocyte% 9.7 % (0-10); NRBC Flagged by Analyzer 0 % (0-5); Neutrophil # 5.52 X10^3/uL (2.7-7.7); Neutrophil % 63.4 % (47-70); Platelet Count 362 K/mm3 (150-450); RBC Distribution Width CV 16.2 % (11.6-14.6); RBC Distribution Width SD 45.6 fl (35.1-43.9); Red Blood Count 5.27 M/mm3 (4.2-5.4); White Blood Count 8.7 K/mm3 (4.4-11.0)
[2024-04-01 12:42] LABS: Bedside Glucose 104 mg/dL (74-106)
[2024-04-01 12:48] LABS: Anion Gap 5 (5-15); BUN 6 mg/dL (7-18); BUN/Creat Ratio 6.6 RATIO (10-20); Calcium,Total 9.8 mg/dL (8.5-10.1); Chloride 106 mmol/L (98-107); EST Glomerular Filtration Rate 77 mL/min (>60); Est Glom Filt Rate - Afr Amer 93 mL/min (>60); Estimated Creatinine Clearance 110.41 ml/min; Glucose 99 mg/dL (74-106); Potassium 4.1 mmol/L (3.5-5.1); Sodium Level 135 mmol/L (136-145); Troponin-I HS (w/2H Reflex) < 3 pg/mL (3.0-54.0)
[2024-04-01] MEDS: Ketorolac 15 MG/ML Vial IV (13:51)
[2024-04-01] MEDS: oxyCODONE 5 MG Tablet PO (13:51)
--- NOTE | 2024-04-01 14:22 | EX.ED.DYSGE1 ---
HPI History of Present Illness Chief Complaint: Syncope [facility] Medical History Addisonian crisis Addisons disease Gastroparesis Dysphagia Wears glasses History of steroid therapy Diabetes Low iron Easy bruising Restless legs Seizures Difficulty swallowing History of ulceration History of IBS History of diverticulitis Gastric reflux Former smoker Asthma Shortness of breath on exertion Cardiology follow-up encounter History of echocardiogram History of stress test Chest pain History of left heart catheterization Anxiety and depression Graves disease Abnormal uterine bleeding (AUB) Endometriosis determined by laparoscopy Adenomyosis Chronic female pelvic pain Migraine Mild intermittent asthma Home Medications ?Medication ?Instructions ?Recorded ?Last Taken ?Type albuterol sulfate 90 mcg/actuation 1 - 2 puff inhalation Q4H PRN PRN 08/04/20 Unknown History aerosol inhaler Sob &/Or Wheezing acarbose 25 mg tablet 25 mg PO TID sugar 08/09/22 08/08/22 History albuterol sulfate 90 mcg/actuation 2 inh inhalation Q4H PRN sob 08/09/22 Unknown History aerosol inhaler (Ventolin HFA) buspirone 5 mg tablet 15 mg PO TID ANXIETY 08/09/22 08/08/22 History eletriptan 40 mg tablet 40 mg PO DAILY migraines 08/09/22 2 Days Ago History ~08/07/22 estradiol 0.0375 mg/24 hr weekly 0.0375 mg transdermal MO HORMONES 08/09/22 08/01/22 History transdermal patch fludrocortisone 0.1 mg tablet 0.1 mg PO DAILY ADDISONS 08/09/22 08/08/22 History glucagon 1 mg/0.2 mL subcutaneous 1 mg subcut DAILY PRN PRN 08/09/22 Unknown History auto-injector (Gvoke HypoPen Hypoglycemia 2-Pack) hydrocortisone sod succinate 100 5 - 15 mg IM TID ADDISONS 08/09/22 08/09/22 History mg solution for injection (Solu-Cortef) hydroxychloroquine 200 mg tablet 200 mg PO BID ARTHRITIS 08/09/22 08/08/22 History tizanidine 4 mg tablet 4 mg PO Q8H PRN Spasms 08/09/22 2 Days Ago History ~08/07/22 ondansetron 4 mg disintegrating 8 mg (2 x 4 mg) PO Q8H PRN PRN 01/12/23 Unknown Rx tablet Nausea #20 tabs ondansetron 4 mg disintegrating 4 mg PO Q8H PRN PRN Nausea #10 tabs 02/12/23 Unknown Rx tablet hyoscyamine sulfate 0.125 mg 0.125 mg PO TID PRN abdominal pain 02/14/23 Unknown Rx sublingual tablet (Levsin/SL) #10 tabs clomipramine 75 mg capsule 100 mg PO DAILY 02/23/23 Unknown History cyclobenzaprine 10 mg tablet 10 mg PO TID 02/23/23 Unknown History gabapentin 100 mg capsule 100 mg PO BID 02/23/23 Unknown History glimepiride 1 mg tablet 1 mg PO DAILY 02/23/23 Unknown History lacosamide 100 mg tablet 100 mg PO BID 02/23/23 Unknown History oxybutynin chloride 5 mg tablet 5 mg PO TID 02/23/23 Unknown History pantoprazole 40 mg tablet,delayed 40 mg PO DAILY 02/23/23 Unknown History release promethazine 25 mg tablet 25 mg PO Q6H PRN PRN Nausea 02/23/23 Unknown History sitagliptin phosphate 100 mg 100 mg PO DAILY 02/23/23 Unknown History tablet (Januvia) sucralfate 100 mg/mL oral 1 g PO BID 02/23/23 Unknown History suspension ondansetron 4 mg disintegrating 4 mg PO Q6H PRN nausea and 06/09/23 Unknown Rx tablet vomiting #12 tabs atorvastatin 10 mg tablet 10 mg PO DAILY 07/24/23 Unknown History clomipramine 50 mg capsule 100 mg PO DAILY 07/24/23 Unknown History dexamethasone 0.5 mg tablet 0.5 mg PO DAILY 07/24/23 Unknown History levothyroxine 125 mcg tablet 125 mcg PO DAILY 07/24/23 Unknown History lorazepam 0.5 mg tablet 0.5 mg PO DAILY PRN anxiety 07/24/23 Unknown History naloxone 4 mg/actuation nasal spray 1 spray intranasal PRN PRN OVERDOSE 07/24/23 Unknown History polyethylene glycol 3350 17 17 g PO DAILY 07/24/23 Unknown History gram/dose oral powder scopolamine base 1 mg over 3 days 1 patch topical Q72H 07/24/23 Unknown History transdermal patch sertraline 50 mg tablet 50 mg PO DAILY 07/24/23 Unknown History Allergy/AdvReac Type Severity Reaction Status Date / Time acetaminophen (From Excedrin Allergy Anaphylaxis Verified 04/01/24 11:01 Migraine) aspirin (From Excedrin Allergy Anaphylaxis Verified 04/01/24 11:01 Migraine) azithromycin (From Zithromax Allergy Anaphylaxis Verified 04/01/24 11:01 Z-Ruiz) bacitracin (From Neosporin Allergy Swelling Verified 04/01/24 11:01 ([id number])) bacitracin zinc (From Allergy Swelling Verified 04/01/24 11:01 Neosporin ([id number])) caffeine (From Excedrin Allergy Anaphylaxis Verified 04/01/24 11:01 Migraine) latex Allergy Rash Verified 04/01/24 11:01 neomycin sulfate (From Allergy Swelling Verified 04/01/24 11:01 Neosporin ([id number])) polymyxin B (From Neosporin Allergy Swelling Verified 04/01/24 11:01 ([id number])) Family History Uncle Diabetes Cancer lung Father Diabetes Grandfather CVA (cerebral vascular accident) Cancer lung, unsure additional type Uncle Cancer brain Grandmother Cancer lung and unsure additional type Surgical History History of appendectomy Hx laparoscopic cholecystectomy History of left salpingo-oophorectomy History of tubal ligation History of laparoscopic-assisted vaginal hysterectomy History of laparoscopy History of wisdom tooth extraction History of thyroidectomy History of section Social History Smoking Status: Former smoker EXAM Physical Exam Const Vital Signs: 04/01/24 10:56 04/01/24 11:04 04/01/24 11:34 Temperature 98.0 F Temperature Source Oral Pulse Rate 109 H Respiratory Rate 12 Respiratory Effort Normal Non-Labored Respiratory Pattern Normal Blood Pressure 90/74 Blood Pressure Mean 79 Pulse Ox 97 Oxygen Delivery Method Room Air Room Air 04/01/24 12:15 04/01/24 12:30 04/01/24 12:45 Temperature Temperature Source Pulse Rate 98 97 Respiratory Rate 20 H 22 H Respiratory Effort Respiratory Pattern Blood Pressure 89/59 L 113/80 123/93 H Blood Pressure Mean 70 91 102 Pulse Ox 98 97 Oxygen Delivery Method 04/01/24 13:00 04/01/24 13:15 04/01/24 13:30 Temperature Temperature Source Pulse Rate 89 96 89 Respiratory Rate 23 H 11 L 15 Respiratory Effort Respiratory Pattern Blood Pressure 112/86 H 114/85 H 119/90 H Blood Pressure Mean 95 96 101 Pulse Ox 95 92 96 Oxygen Delivery Method 04/01/24 13:45 04/01/24 14:00 Temperature Temperature Source Pulse Rate 90 83 Respiratory Rate 20 H 20 H Respiratory Effort Respiratory Pattern Blood Pressure 116/87 H 119/92 H Blood Pressure Mean 97 102 Pulse Ox 95 95 Oxygen Delivery Method [facility] MDM Narrative Medical decision making narrative: HISTORY OF PRESENT ILLNESS: 29-year-old female presents with concern for syncope. She states her blood sugar earlier was 42. She then describes lightheadedness, dizziness shakiness and loss of consciousness. States she lost consciousness he did strike the back of her head. She denies any focal neurologic deficits at this time. Denies any chest pain, shortness of breath, recent fever, cough, vomiting, diarrhea. No urinary complaints. She notes history of Clearwater's disease. REVIEW OF SYSTEMS: Detailed in HPI PHYSICAL EXAM: Nursing triage notes reviewed, Vital signs reviewed Constitutional: please see [facility] HENT: MMM, atraumatic, normocephalic Eyes: Pupils equal round and reactive to light, Extraocular muscles intact Neck: No stridor, no JVD, full neck ROM Lungs: Clear to auscultation, No wheezing or rales. No increased work of breathing, no conversational dyspnea, no accessory muscle use, no nasal flaring. No respiratory distress noted Heart: Regular rate and rhythm, No murmurs, No rubs and No gallops, 2+ distal pulses (radial, femoral, posterior tibial) in all extremities Abdomen: Soft, there is no tenderness, rigidity, rebound or guarding, no obvious peritoneal signs, no palpable pulsatile abdominal masses, no auscultated abdominal bruit : No CVAT Extremities: No edema Neuro: No focal neurological deficits, cranial nerves II through XII intact, 5/5 strength in all extremities. Intact sensation to light touch in all extremities, 2+ reflexes bilateral patella tendons. Normal gait. No ataxia. Skin: No rash or lesions noted MEDICAL DECISION MAKING: Chief Complaint: Syncope, head trauma External records reviewed: Recent ED visit on 03/08/2024 with concern for not feeling well, nausea and dizziness. Factors affecting care: History of seizures, Davonte's disease Social determinants of health: none Consults: none MDM Narrative: Patient was initially with soft blood pressures however was afebrile, nontoxic-appearing. No focus of trauma noted on exam. No focal cardiopulmonary normalities noted I considered the following differential diagnosis: Addisonian crisis, arrhythmia, anemia, electro disturbance, intracranial hemorrhage, hypoglycemia ALL IMAGES (IF OBTAINED) HAVE BEEN PERSONALLY REVIEWED AND INTERPRETED BY MYSELF. I have personally reviewed the patient's chest x-ray. Chest x-ray is unremarkable for pulmonary edema, pneumothorax, pneumonia or focal cardiopulmonary abnormality. EKG with normal sinus rhythm, normal axis, normal intervals, no ST or T wave changes to suggest ischemia. No evidence of WPW, Brugada, ARVD. High-sensitivity troponin is negative, no evidence of myocardial ischemia Corrected glucose within normal limits BMP without significant electrolyte abnormalities, no MARZENA, no evidence of metabolic acidosis CBC without leukocytosis, severe anemia, no thrombocytopenia. CT scan of the brain is negative The synthesis of the patients history, physical exam, labs, and images suggest likely hypoglycemia as a cause of her syncope. No signs of abnormal heart rhythm, ACS, anemia, electrolyte disturbance. No clinical exam, historical evidence to suggest pulmonary embolism. Initial blood pressure improved after 1 L of IV fluid. The patient maintained her blood pressure here after fluids. While I gave stress dose steroids as a precaution given initial low blood pressure, report of hypoglycemia and syncope I do not think she is undergoing true addisonian crisis. In addition she has oral corticosteroids to take at home. She is appropriate discharge home with close PCP follow-up. The patient and/or family, caregivers express understanding. The patient and/or family, caregivers agrees with the plan. Shared decision making: I will have a discussion with the patient and or visitors regarding risk/benefits of further testing or admission. They will be made aware of of the risk/benefits inherent in this decision they will be given the opportunity to voice understanding. Total critical care time today provided was at least 0 minutes. This excludes separately billable procedures. Critical care time (if documented) is secondary to the patient having high probability of clinically significant/life threatening deterioration in the patient's condition which required my urgent intervention. Impression: 1. Hyperglycemia 2. Syncope 3. History of Clearwater's disease Dispo: Discharge home This note was generated with [employer]! dictation software. It may contain incorrect words, spelling, and punctuation that were not noted in review of the chart prior to signing. Lab Data Labs: Laboratory Results - last 24 hr 04/01/24 04/01/24 12:20 12:24 WBC 8.7 RBC 5.27 Hgb 12.8 Hct 41.1 MCV 78.0 L MCH 24.3 L MCHC 31.1 L RDW Std Deviation 45.6 H RDW Coeff of Renetta 16.2 H Plt Count 362 MPV 9.7 Immature Gran % (Auto) 0.700 Neut % (Auto) 63.4 Lymph % (Auto) 25.6 Haskell % (Auto) 9.7 Eos % (Auto) 0.0 Baso % (Auto) 0.6 Absolute Neuts (auto) 5.5 Absolute Lymphs (auto) 2.23 Nucleated RBC % 0 Sodium 135 L Potassium 4.1 Chloride 106 Carbon Dioxide 24.0 Anion Gap 5 BUN 6 L Creatinine 0.90 Estim Creat Clear Calc 110.41 Est GFR (MDRD) Af Amer 93 Est GFR (MDRD) Non-Af 77 BUN/Creatinine Ratio 6.6 L Glucose 99 Calcium 9.8 Troponin I High Sens < 3 L POC Glucose 104 Radiography Diagnostic Testing: Clinical Impression(s) from Imaging Studies Brain CT 04/01/24 11:21 IMPRESSION: Normal unenhanced CT scan of the brain. Electronically Signed: Lonnie Kim MD at 12:22 EDT , Chest X-Ray 04/01/24 11:35 IMPRESSION: Normal x-ray examination of the chest. Electronically Signed: Lonnie Kim MD at 12:22 EDT , Discharge Plan Triage Chief Complaint: Syncope ED Provider: Elfego Anna Dx/Rx/DC Orders Prescriptions: No Action albuterol sulfate 1 INHALER inhaler 1 - 2 puff INHALATION Q4H PRN PRN (Reason: Sob &/Or Wheezing) Solu-Cortef 100 mg recon soln 5 - 15 mg IM TID buspirone 5 mg tablet 15 mg PO TID Patient Comments: TAKE 1 TABLET BY MOUTH THREE TIMES DAILY tizanidine 4 mg tablet 4 mg PO Q8H PRN (Reason: Spasms) Patient Comments: TAKE 1 TABLET BY MOUTH EVERY 8 HOURS NEEDED hydroxychloroquine 200 mg tablet 200 mg PO BID Patient Comments: Take 1 tablet by mouth twice daily. albuterol sulfate [Ventolin HFA] 90 mcg/actuation HFA aerosol inhaler 2 inh INHALATION Q4H PRN (Reason: sob) Patient Comments: Inhale 2 Puffs as instructed every 4 hours as needed. fludrocortisone 0.1 mg tablet 0.1 mg PO DAILY Patient Comments: TAKE 1 TABLET BY MOUTH EVERY DAY acarbose 25 mg tablet 25 mg PO TID Patient Comments: TAKE 1 TABLET THREE TIMES DAILY eletriptan 40 mg tablet 40 mg PO DAILY Patient Comments: Take 1 tablet at the onset of migraine. Repeat 1 dose in 2 hours, if needed. estradiol 0.0375 mg/24 hr patch weekly 0.0375 mg transdermal MO Patient Comments: Apply 1 Patch as directed one time a week. Gvoke HypoPen 2-Pack 1 mg/0.2 mL auto-injector 1 mg SUBCUT DAILY PRN PRN (Reason: Hypoglycemia) Patient Comments: Inject 1 mg subcutaneously as needed. ondansetron [ondansetron] 4 mg tablet,disintegrating 8 mg PO Q8H PRN PRN (Reason: Nausea) Qty: 20 0RF ondansetron 4 mg tablet,disintegrating 4 mg PO Q8H PRN PRN (Reason: Nausea) Qty: 10 0RF hyoscyamine sulfate [Levsin/SL] 0.125 mg tablet, sublingual 0.125 mg PO TID PRN (Reason: abdominal pain) Qty: 10 0RF cyclobenzaprine 10 mg tablet 10 mg PO TID clomipramine 75 mg capsule 100 mg PO DAILY sucralfate 100 mg/mL suspension 1 g PO BID glimepiride 1 mg tablet 1 mg PO DAILY pantoprazole 40 mg tablet,delayed release (DR/EC) 40 mg PO DAILY promethazine 25 mg tablet 25 mg PO Q6H PRN PRN (Reason: Nausea) gabapentin 100 mg capsule 100 mg PO BID oxybutynin chloride 5 mg tablet 5 mg PO TID Januvia 100 mg tablet 100 mg PO DAILY lacosamide 100 mg tablet 100 mg PO BID ondansetron 4 mg tablet,disintegrating 4 mg PO Q6H PRN (Reason: nausea and vomiting) Qty: 12 0RF lorazepam 0.5 mg tablet 0.5 mg PO DAILY PRN (Reason: anxiety) Patient Comments: Take 1 tablet by mouth once daily as needed for up to 30 days. dexamethasone 0.5 mg tablet 0.5 mg PO DAILY Patient Comments: TAKE 1 TABLET BY MOUTH EVERY 6 HOURS atorvastatin 10 mg tablet 10 mg PO DAILY Patient Comments: TAKE 1 TABLET BY MOUTH ONCE DAILY levothyroxine 125 mcg tablet 125 mcg PO DAILY Patient Comments: Take 1 tablet by mouth once daily. M=S AND 1.5 ON MONDAY polyethylene glycol 3350 17 gram/dose powder 17 g PO DAILY Patient Comments: Take 17 g by mouth once daily. Dissolve dose in 4 - 8 ounces of liquid and take as directed. sertraline 50 mg tablet 50 mg PO DAILY Patient Comments: Take 1 tablet by mouth once daily. Take 1/2 tab once a day orally for one week then 1 tab once a day scopolamine base 1 mg over 3 days patch 3 day 1 patch topical Q72H Patient Comments: Place 1 patch on skin every 72 hours. naloxone 4 mg/actuation spray,non-aerosol 1 spray INTRANASAL PRN PRN (Reason: OVERDOSE) Patient Comments: Tavernier 0.1 mL (contents of one device) into one nostril upon signs of opioid overdose. Call 911. May repeat once if no response within 2-3 minutes. clomipramine 50 mg capsule 100 mg PO DAILY Patient Comments: TAKE 2 CAPSULES BY MOUTH EVERY DAY AT BEDTIME Primary Care Provider: Kevin Stauffer Referrals: Kevin Stauffer MD [Primary Care Provider] - Print Language: Latvian
[2024-04-01 14:27] LABS: Reflex Troponin-HS? (from REC) Y
== END 2024-04-01 14:52 | disposition home or self-care (01) ==
PROVIDERS: Emergency Provider Emergency Medicine; PCP Family Medicine; Visit Provider Emergency Medicine
DX: R55 Syncope and collapse (principal); E27.1 Primary adrenocortical insufficiency; E11.65 Type 2 diabetes mellitus with hyperglycemia; Z87.891 Personal history of nicotine dependence; F41.8 Other specified anxiety disorders; Z79.84 Long term (current) use of oral hypoglycemic drugs; K21.9 Gastro-esophageal reflux disease without esophagitis; Z79.899 Other long term (current) drug therapy; Z90.49 Acquired absence of other specified parts of digestive tract; Z90.721 Acquired absence of ovaries, unilateral; Z98.51 Tubal ligation status; Z90.710 Acquired absence of both cervix and uterus
CPT/HCPCS: 70450; 71045; 80048; 82962; 84484; 85025; 93005; 96361; 96374; 96375; 96376; 99284; J7030; A4216

== ENCOUNTER 2024-07-18 09:04 | Emergency (ER) | payer MEDICAID, SELFPAY ==
[2024-07-18 09:05] VITALS: BP 124/87; PULSE 111; RESP 22; TEMP 36.8; O2SAT 98; BMI 32.3
--- NOTE | 2024-07-18 09:11 | CT_ITS ---
STUDY: CT ABDOMEN AND PELVIS WITHOUT CONTRAST REASON FOR EXAM: Female, 29 years old. Left flank pain since yesterday. RADIATION DOSAGE (If Supplied By Facility): CTDIvol = ( 13.60 ) mGy, DLP = ( 720.55 ) mGycm TECHNIQUE: Transaxial images were obtained from the dome of the diaphragm to the symphysis pubis without oral contrast, and without intravenous contrast. Sagittal and coronal images were reconstructed. Individualized dose optimization techniques were used for this CT. COMPARISON: Comparison is made with prior study dated February 04, 2023. FINDINGS: The visualized lung bases are unremarkable. The visualized portions of the heart are within normal limits. There is decreased attenuation of the liver consistent with steatosis. The patient is status post cholecystectomy. Normal spleen. Normal pancreas. Normal bilateral adrenal glands. Normal right kidney. Normal left kidney. Incidental note is made of a left retroaortic renal vein. Normal visualized stomach. Normal small intestine. There are scattered colonic diverticula consistent with diverticulosis. There are surgical clips in the region of the appendix consistent with a prior appendectomy. There is scattered atherosclerotic calcification of the abdominal aorta, without a demonstrated aneurysm. Normal inferior vena cava. Normal retroperitoneum. Normal urinary bladder. There is absence of the uterus consistent with a prior hysterectomy. Stable 1.9 cm left adnexal cyst. Normal abdominal wall. Normal osseous structures. CT/Abdomen/Pelvis without Cont IMPRESSION: Scattered sigmoid diverticula. Stable left adnexal cyst. No obstructive uropathy is seen. Electronically Signed: Lonnie Kim MD at 9:53 EDT ,
--- NOTE | 2024-07-18 09:11 | ED.VIS.GI ---
HPI HPI - GI History of Present Illness Chief Complaint: Flank Pain Informant: patient Narrative Narrative: Brought in by EMS left lower quadrant abdominal pain rating to her flank since yesterday. Stayed no blood and dysuria yesterday. No fevers. Nausea without vomiting. Hysterectomy in the past. Similar symptoms with kidney stone last time a year ago. States there is been no intervention. Multiple allergies including Toradol causing nausea. She denies history of gastric ulcers. Tolerated Zofran and morphine in the past. Prior similar symptoms: Yes PFSH PFSH Medical History Addisonian crisis Addisons disease Gastroparesis Dysphagia Wears glasses History of steroid therapy Diabetes Low iron Easy bruising Restless legs Seizures Difficulty swallowing History of ulceration History of IBS History of diverticulitis Gastric reflux Former smoker Asthma Shortness of breath on exertion Cardiology follow-up encounter History of echocardiogram History of stress test Chest pain History of left heart catheterization Anxiety and depression Graves disease Abnormal uterine bleeding (AUB) Endometriosis determined by laparoscopy Adenomyosis Chronic female pelvic pain Migraine Mild intermittent asthma Home Medications ?Medication ?Instructions ?Recorded ?Last Taken ?Type albuterol sulfate 90 mcg/actuation 1 - 2 puff inhalation Q4H PRN PRN 08/04/20 Unknown History aerosol inhaler Sob &/Or Wheezing acarbose 25 mg tablet 25 mg PO TID sugar 08/09/22 08/08/22 History albuterol sulfate 90 mcg/actuation 2 inh inhalation Q4H PRN sob 08/09/22 Unknown History aerosol inhaler (Ventolin HFA) buspirone 5 mg tablet 15 mg PO TID ANXIETY 08/09/22 08/08/22 History eletriptan 40 mg tablet 40 mg PO DAILY migraines 08/09/22 2 Days Ago History ~08/07/22 estradiol 0.0375 mg/24 hr weekly 0.0375 mg transdermal MO HORMONES 08/09/22 08/01/22 History transdermal patch fludrocortisone 0.1 mg tablet 0.1 mg PO DAILY ADDISONS 08/09/22 08/08/22 History glucagon 1 mg/0.2 mL subcutaneous 1 mg subcut DAILY PRN PRN 08/09/22 Unknown History auto-injector (Gvoke HypoPen Hypoglycemia 2-Pack) hydrocortisone sod succinate 100 5 - 15 mg IM TID ADDISONS 08/09/22 08/09/22 History mg solution for injection (Solu-Cortef) hydroxychloroquine 200 mg tablet 200 mg PO BID ARTHRITIS 08/09/22 08/08/22 History tizanidine 4 mg tablet 4 mg PO Q8H PRN Spasms 08/09/22 2 Days Ago History ~08/07/22 ondansetron 4 mg disintegrating 8 mg (2 x 4 mg) PO Q8H PRN PRN 11/03/22 Unknown Rx tablet Nausea #20 tabs ondansetron 4 mg disintegrating 4 mg PO Q8H PRN PRN Nausea #10 tabs 02/12/23 Unknown Rx tablet hyoscyamine sulfate 0.125 mg 0.125 mg PO TID PRN abdominal pain 02/14/23 Unknown Rx sublingual tablet (Levsin/SL) #10 tabs clomipramine 75 mg capsule 100 mg PO DAILY 02/23/23 Unknown History cyclobenzaprine 10 mg tablet 10 mg PO TID 02/23/23 Unknown History gabapentin 100 mg capsule 100 mg PO BID 02/23/23 Unknown History glimepiride 1 mg tablet 1 mg PO DAILY 02/23/23 Unknown History lacosamide 100 mg tablet 100 mg PO BID 02/23/23 Unknown History oxybutynin chloride 5 mg tablet 5 mg PO TID 02/23/23 Unknown History pantoprazole 40 mg tablet,delayed 40 mg PO DAILY 02/23/23 Unknown History release promethazine 25 mg tablet 25 mg PO Q6H PRN PRN Nausea 02/23/23 Unknown History sitagliptin phosphate 100 mg 100 mg PO DAILY 02/23/23 Unknown History tablet (Januvia) sucralfate 100 mg/mL oral 1 g PO BID 02/23/23 Unknown History suspension ondansetron 4 mg disintegrating 4 mg PO Q6H PRN nausea and 06/09/23 Unknown Rx tablet vomiting #12 tabs atorvastatin 10 mg tablet 10 mg PO DAILY 07/24/23 Unknown History clomipramine 50 mg capsule 100 mg PO DAILY 07/24/23 Unknown History dexamethasone 0.5 mg tablet 0.5 mg PO DAILY 07/24/23 Unknown History levothyroxine 125 mcg tablet 125 mcg PO DAILY 07/24/23 Unknown History lorazepam 0.5 mg tablet 0.5 mg PO DAILY PRN anxiety 07/24/23 Unknown History naloxone 4 mg/actuation nasal spray 1 spray intranasal PRN PRN OVERDOSE 07/24/23 Unknown History polyethylene glycol 3350 17 17 g PO DAILY 07/24/23 Unknown History gram/dose oral powder scopolamine base 1 mg over 3 days 1 patch topical Q72H 07/24/23 Unknown History transdermal patch sertraline 50 mg tablet 50 mg PO DAILY 07/24/23 Unknown History metoclopramide HCl 5 mg tablet 5 mg PO Q8H PRN PRN headache #20 04/01/24 Unknown Rx (Reglan) tabs ondansetron 4 mg disintegrating 4 mg PO Q8H PRN PRN Nausea #10 tabs 07/18/24 Unknown Rx tablet oxycodone 5 mg tablet 5 mg PO Q6H PRN pain 3 days #10 07/18/24 Unknown Rx tabs Allergy/AdvReac Type Severity Reaction Status Date / Time acetaminophen (From Excedrin Allergy Anaphylaxis Verified 04/01/24 11:01 Migraine) aspirin (From Excedrin Allergy Anaphylaxis Verified 04/01/24 11:01 Migraine) azithromycin (From Zithromax Allergy Anaphylaxis Verified 04/01/24 11:01 Z-Ruiz) bacitracin (From Neosporin Allergy Swelling Verified 04/01/24 11:01 ([id number])) bacitracin zinc (From Allergy Swelling Verified 04/01/24 11:01 Neosporin ([id number])) caffeine (From Excedrin Allergy Anaphylaxis Verified 04/01/24 11:01 Migraine) latex Allergy Rash Verified 04/01/24 11:01 neomycin sulfate (From Allergy Swelling Verified 04/01/24 11:01 Neosporin ([id number])) polymyxin B (From Neosporin Allergy Swelling Verified 04/01/24 11:01 ([id number])) Family History Uncle Diabetes Cancer lung Father Diabetes Grandfather CVA (cerebral vascular accident) Cancer lung, unsure additional type Uncle Cancer brain Grandmother Cancer lung and unsure additional type Surgical History History of appendectomy Hx laparoscopic cholecystectomy History of left salpingo-oophorectomy History of tubal ligation History of laparoscopic-assisted vaginal hysterectomy History of laparoscopy History of wisdom tooth extraction History of thyroidectomy History of section Social History Smoking Status: Former smoker ROS ROS ED Constitutional Constitutional ED: Denies chills, fever(s) or sweats Eyes Eyes: Denies change in vision ENT ENT ED: Denies dysphagia or sore throat Cardiovascular Cardiovascular: Denies chest pain, leg edema, palpitations or racing heartbeat Respiratory/Chest Respiratory/Chest: Denies cough, dyspnea or dyspnea on exertion Gastrointestinal Gastrointestinal: Reports abdominal pain and nausea; Denies diarrhea or vomiting Genitourinary Genitourinary ED: Reports dysuria and hematuria; Denies urinary frequency Musculoskeletal Musculoskeletal: Reports back pain; Denies extremity pain or neck pain Integumentary Denies rash or wounds Neurologic Neurologic: Reports other Details: Reports dizziness ; Denies headache(s), paresthesias or weakness EXAM Physical Exam Const Vital Signs: 07/18/24 09:05 07/18/24 10:50 Temperature 98.3 F 97.5 F L Temperature Source Oral Pulse Rate 111 H 81 Respiratory Rate 22 H 16 Blood Pressure 124/87 H 127/63 H Blood Pressure Mean 99 84 Pulse Ox 98 99 Oxygen Delivery Method Room Air Positive well nourished and well developed Constitutional Narrative: Anxious, uncomfortable, nontoxic General Appearance ED: well developed HEENT Reports moist mucous membranes normocephalic and atraumatic Eyes EOMs intact bilaterally and conjunctivae normal General Eye ED: Yes normal appearance of both eyes Neck no lymphadenopathy and supple General: Negative for tenderness Chest Wall Chest: Negative for tenderness Resp normal respiratory effort and normal air movement Effort and Inspection: symmetric chest movement; Negative for respiratory distress Cardio regular rhythm and no murmurs Rate: tachycardic Peripheral Pulses: pulses 2+ throughout GI normal to inspection, nondistended, normoactive bowel sounds and non-tender GI Narrative: No guarding or rebound. Negative Monaco's or McBurney's tenderness. Palpation: Negative for guarding or rebound tenderness present Back/Spine no CVA tenderness and no thoracic nor lumbar tenderness Extremity normal to inspection General Extremety ED: Negative for edema or tenderness General Extremity: Negative for edema Neuro oriented x3, CN's II-XII intact bilaterally and no sensory deficits noted Sensorium / Orientation: awake and alert Skin no rashes or lesions noted and no wounds MDM MDM MDM Narrative Medical decision making narrative: Interventions / MDM: Differential diagnosis: Flank pain, ovarian cyst Diagnosis considered but do not suspect: Kidney stone however negative CT. UTI however urine negative. My EKG interpretation: N/A Imaging independently reviewed and interpreted by myself: Noncontrast CT abdomen pelvis: No obstructive process. 1.9 cm ovarian cyst noted per radiology. External documents reviewed: N/A Test considered but not ordered:N/A ED course: Tachycardic uncomfortable hematuria dysuria with flank pain. Renal stone protocol. Fluids started Zofran morphine. Labs including a urine. CT scan. History of Russell's disease blood pressure stable. 1015: Workup negative for any obstructive kidney process reported 1.9 cm ovarian cyst. Urine with microscopic hematuria no infection. Reevaluation proving symptoms. Discussed the ovarian cyst however she reports she had a total hysterectomy including ovaries removed followed by Dr. Bonnie Watson. Discussed the cystic structure that is stable in the adnexal region. Pain worsens yesterday show monitor for rash for any shingles concerns. She will follow-up with her gynecology team. Prescription for pain and nausea. All questions were answered. Re-evaluation: stable Disposition discussed with patient/family/significant other: Patient Case discussed with consulting clinician: N/A This note was generated with boomtrain dictation software. It may contain incorrect words, spelling, and punctuation that were not noted in checking the note before signing. Lab Data Labs: Laboratory Results - last 24 hr 07/18/24 07/18/24 09:00 09:20 WBC 9.1 RBC 5.26 Hgb 12.5 Hct 39.7 MCV 75.5 L MCH 23.8 L MCHC 31.5 L RDW Std Deviation 44.6 H RDW Coeff of Renetta 16.6 H Plt Count 377 MPV 9.6 Immature Gran % (Auto) 0.400 Neut % (Auto) 57.0 Lymph % (Auto) 33.5 [place] % (Auto) 8.8 Eos % (Auto) 0.0 Baso % (Auto) 0.3 Absolute Neuts (auto) 5.2 Absolute Lymphs (auto) 3.04 Nucleated RBC % 0 Sodium 137 Potassium 3.2 L Chloride 104 Carbon Dioxide 23.0 Anion Gap 10 BUN 7 Creatinine 0.96 Estim Creat Clear Calc 96.38 Est GFR (MDRD) Af Amer 87 Est GFR (MDRD) Non-Af 72 BUN/Creatinine Ratio 7.3 L Glucose 86 Calcium 9.6 Urine Color Yellow Urine Clarity Sl. Cloudy Urine pH 8.0 Ur Specific [place] 1.010 Urine Protein 15 H Urine Glucose (UA) 1000 H Urine Ketones Negative Urine Occult Blood 150 H Urine Nitrite Negative Urine Bilirubin Negative Urine Urobilinogen Normal Ur Leukocyte Esterase Negative Urine RBC 10-25 SEEN Urine WBC 0-5 SEEN Ur Squamous Epith Cells 0-5 SEEN Ur Transition Epith Cell 0-5 SEEN Urine Bacteria 0 SEEN Urine Mucus 0 SEEN Radiography Diagnostic Testing: Clinical Impression(s) from Imaging Studies Abdomen/Pelvis CT 07/18/24 09:11 IMPRESSION: Scattered sigmoid diverticula. Stable left adnexal cyst. No obstructive uropathy is seen. Electronically Signed: Lonnie Kim MD at 9:53 EDT , Discharge Plan Triage Chief Complaint: Flank Pain ED Provider: Manuel Corrales Dx/Rx/DC Orders Clinical Impression: Left flank pain, Ovarian cyst, Hematuria Instructions: Ovarian Cysts, ED Flank Pain, Uncertain Cause, ED Hematuria Prescriptions: New ondansetron 4 mg tablet,disintegrating 4 mg PO Q8H PRN PRN (Reason: Nausea) Qty: 10 0RF oxycodone 5 mg tablet 5 mg PO Q6H PRN (Reason: pain) 3 Days Qty: 10 0RF No Action albuterol sulfate 1 INHALER inhaler 1 - 2 puff INHALATION Q4H PRN PRN (Reason: Sob &/Or Wheezing) Solu-Cortef 100 mg recon soln 5 - 15 mg IM TID buspirone 5 mg tablet 15 mg PO TID Patient Comments: TAKE 1 TABLET BY MOUTH THREE TIMES DAILY tizanidine 4 mg tablet 4 mg PO Q8H PRN (Reason: Spasms) Patient Comments: TAKE 1 TABLET BY MOUTH EVERY 8 HOURS NEEDED hydroxychloroquine 200 mg tablet 200 mg PO BID Patient Comments: Take 1 tablet by mouth twice daily. albuterol sulfate [Ventolin HFA] 90 mcg/actuation HFA aerosol inhaler 2 inh INHALATION Q4H PRN (Reason: sob) Patient Comments: Inhale 2 Puffs as instructed every 4 hours as needed. fludrocortisone 0.1 mg tablet 0.1 mg PO DAILY Patient Comments: TAKE 1 TABLET BY MOUTH EVERY DAY acarbose 25 mg tablet 25 mg PO TID Patient Comments: TAKE 1 TABLET THREE TIMES DAILY eletriptan 40 mg tablet 40 mg PO DAILY Patient Comments: Take 1 tablet at the onset of migraine. Repeat 1 dose in 2 hours, if needed. estradiol 0.0375 mg/24 hr patch weekly 0.0375 mg transdermal MO Patient Comments: Apply 1 Patch as directed one time a week. Gvoke HypoPen 2-Pack 1 mg/0.2 mL auto-injector 1 mg SUBCUT DAILY PRN PRN (Reason: Hypoglycemia) Patient Comments: Inject 1 mg subcutaneously as needed. ondansetron [ondansetron] 4 mg tablet,disintegrating 8 mg PO Q8H PRN PRN (Reason: Nausea) Qty: 20 0RF ondansetron 4 mg tablet,disintegrating 4 mg PO Q8H PRN PRN (Reason: Nausea) Qty: 10 0RF hyoscyamine sulfate [Levsin/SL] 0.125 mg tablet, sublingual 0.125 mg PO TID PRN (Reason: abdominal pain) Qty: 10 0RF cyclobenzaprine 10 mg tablet 10 mg PO TID clomipramine 75 mg capsule 100 mg PO DAILY sucralfate 100 mg/mL suspension 1 g PO BID glimepiride 1 mg tablet 1 mg PO DAILY pantoprazole 40 mg tablet,delayed release (DR/EC) 40 mg PO DAILY promethazine 25 mg tablet 25 mg PO Q6H PRN PRN (Reason: Nausea) gabapentin 100 mg capsule 100 mg PO BID oxybutynin chloride 5 mg tablet 5 mg PO TID Januvia 100 mg tablet 100 mg PO DAILY lacosamide 100 mg tablet 100 mg PO BID ondansetron 4 mg tablet,disintegrating 4 mg PO Q6H PRN (Reason: nausea and vomiting) Qty: 12 0RF lorazepam 0.5 mg tablet 0.5 mg PO DAILY PRN (Reason: anxiety) Patient Comments: Take 1 tablet by mouth once daily as needed for up to 30 days. dexamethasone 0.5 mg tablet 0.5 mg PO DAILY Patient Comments: TAKE 1 TABLET BY MOUTH EVERY 6 HOURS atorvastatin 10 mg tablet 10 mg PO DAILY Patient Comments: TAKE 1 TABLET BY MOUTH ONCE DAILY levothyroxine 125 mcg tablet 125 mcg PO DAILY Patient Comments: Take 1 tablet by mouth once daily. M=S AND 1.5 ON MONDAY polyethylene glycol 3350 17 gram/dose powder 17 g PO DAILY Patient Comments: Take 17 g by mouth once daily. Dissolve dose in 4 - 8 ounces of liquid and take as directed. sertraline 50 mg tablet 50 mg PO DAILY Patient Comments: Take 1 tablet by mouth once daily. Take 1/2 tab once a day orally for one week then 1 tab once a day scopolamine base 1 mg over 3 days patch 3 day 1 patch topical Q72H Patient Comments: Place 1 patch on skin every 72 hours. naloxone 4 mg/actuation spray,non-aerosol 1 spray INTRANASAL PRN PRN (Reason: OVERDOSE) Patient Comments: [place] 0.1 mL (contents of one device) into one nostril upon signs of opioid overdose. Call 911. May repeat once if no response within 2-3 minutes. clomipramine 50 mg capsule 100 mg PO DAILY Patient Comments: TAKE 2 CAPSULES BY MOUTH EVERY DAY AT BEDTIME metoclopramide HCl [Reglan] 5 mg tablet 5 mg PO Q8H PRN PRN (Reason: headache) Qty: 20 0RF Stand Alone Forms: ED Work / School Excuse Primary Care Provider: Kevin Stauffer Referrals: Nasir Thomas MD [Med Staff - Active Staff] - 1-2 Weeks Diana Steele MD [Med Staff - Active Staff] - 1 Week Kevin Stauffer MD [Primary Care Provider] - 1 Week Activity Restrictions/Additional Instructions: 1.9 cm cystlike structure left adnexa reported from radiology ovarian cyst. However you report total hysterectomy with ovaries removed. No kidney stones no urine infection. Take medications as prescribed. Follow-up with your therapist for cystlike structure. Follow-up with urology for blood in your urine. Monitor for any vesicular rash in the region of pain for possible shingles. Print Language: Greek Disposition Disposition: Home, Self Care Discharge Date/Time: 07/18/24 10:51
[2024-07-18 09:18] LABS: Absolute Lymphocyte Count 3.04 X10^3/uL (0.83-4.51); Absolute Neutrophil Count 5.2 X10^3/uL (2.0-7.7); Basophil# 0.03 X10^3/uL; Basophil% 0.3 % (0-1); Hematocrit 39.7 % (37-47); Hemoglobin 12.5 g/dL (12.0-15.0); Lymphocyte # 3.04 X10^3/ul (0.83-4.51); Lymphocyte % 33.5 % (19-41); Mean Corp Hgb Conc 31.5 g/dL (32-36); Mean Corpuscular Hgb 23.8 pg (27.0-32.0); Mean Corpuscular Volume 75.5 fL (81-99); Mean Platelet Vol. 9.6 fl (6.2-12.0); Monocyte% 8.8 % (0-10); NRBC Flagged by Analyzer 0 % (0-5); Neutrophil # 5.17 X10^3/uL (2.7-7.7); Platelet Count 377 K/mm3 (150-450); RBC Distribution Width CV 16.6 % (11.6-14.6); RBC Distribution Width SD 44.6 fl (35.1-43.9); Red Blood Count 5.26 M/mm3 (4.2-5.4); White Blood Count 9.1 K/mm3 (4.4-11.0)
[2024-07-18] MEDS: 0.9% Normal Saline (1000mL) 1,000 ML 250 ML IV (09:18)
[2024-07-18] MEDS: Ondansetron 4 MG/2 ML Vial IV (09:19)
[2024-07-18] MEDS: Morphine 4 MG/ML Syringe IV (09:19)
[2024-07-18 09:29] LABS: Anion Gap 10 (5-15); BUN 7 mg/dL (7-18); BUN/Creat Ratio 7.3 RATIO (10-20); Calcium,Total 9.6 mg/dL (8.5-10.1); Chloride 104 mmol/L (98-107); Creatinine, Serum 0.96 mg/dL (0.55-1.02); EST Glomerular Filtration Rate 72 mL/min (>60); Est Glom Filt Rate - Afr Amer 87 mL/min (>60); Estimated Creatinine Clearance 96.38 ml/min; Glucose 86 mg/dL (74-106); Potassium 3.2 mmol/L (3.5-5.1); Sodium Level 137 mmol/L (136-145)
[2024-07-18 09:31] LABS: Bacteria 0 SEEN /hpf (None Seen); Mucous, Urine 0 SEEN /hpf (<or=2+)
[2024-07-18 09:32] LABS: Color, Urine Yellow (Yellow); Glucose, Dipstick 1000 mg/dl (Normal); Ketone-Dipstick Negative (Negative); Leukocyte Esterase-Dipstick Negative /ul (Negative); Nitrite-Dipstick Negative (Negative); Occult Blood-Urine 150 /ul (Negative); Protein-Dipstick 15 mg/dl (Negative); Urine Bilirubin Dipstick Negative (Negative); Urine Clarity Sl. Cloudy (Clear); Urine Urobilinogen Normal (Normal)
[2024-07-18 09:49] LABS: Red Blood Cells-Urine 10-25 SEEN /hpf (0-5)
[2024-07-18 09:50] LABS: Squamous Epithelial Cells - UA 0-5 SEEN /hpf (5-10); Transitional Epithelial - Ur 0-5 SEEN /hpf (0-5); White Blood Cells 0-5 SEEN /hpf (0-5)
[2024-07-18] MEDS: oxyCODONE 5 MG Tablet PO (10:44)
[2024-07-18 10:50] VITALS: BP 127/63; PULSE 81; RESP 16; TEMP 36.4; O2SAT 99
== END 2024-07-18 10:51 | disposition home or self-care (01) ==
PROVIDERS: Emergency Provider Emergency Medicine; PCP Family Medicine; Visit Provider Emergency Medicine
DX: R10.32 Left lower quadrant pain (principal); E27.1 Primary adrenocortical insufficiency; G40.909 Epilepsy, unspecified, not intractable, without status epilepticus; E11.43 Type 2 diabetes mellitus with diabetic autonomic (poly)neuropathy; R31.29 Other microscopic hematuria; N83.8 Other noninflammatory disorders of ovary, fallopian tube and broad ligament; K31.84 Gastroparesis; K21.9 Gastro-esophageal reflux disease without esophagitis; K57.30 Diverticulosis of large intestine without perforation or abscess without bleeding; J45.20 Mild intermittent asthma, uncomplicated; F41.9 Anxiety disorder, unspecified; F32.A Depression, unspecified; G43.909 Migraine, unspecified, not intractable, without status migrainosus; G25.81 Restless legs syndrome; E05.00 Thyrotoxicosis with diffuse goiter without thyrotoxic crisis or storm; Z88.1 Allergy status to other antibiotic agents; Z87.19 Personal history of other diseases of the digestive system; Z90.49 Acquired absence of other specified parts of digestive tract; Z79.84 Long term (current) use of oral hypoglycemic drugs; Z87.442 Personal history of urinary calculi; Z90.710 Acquired absence of both cervix and uterus; Z79.890 Hormone replacement therapy; Z87.891 Personal history of nicotine dependence
CPT/HCPCS: 74176; 80048; 81001; 85025; 96361; 96374; 96375; 99284; J7030; J2405

== ENCOUNTER 2024-12-10 12:17 | Emergency (ER) | payer MEDICAID, SELFPAY ==
[2024-12-10 12:18] VITALS: BP 101/76; PULSE 82; RESP 15; TEMP 35.8; O2SAT 99
[2024-12-10] MEDS: Ondansetron 4 MG/2 ML Vial IV (14:14)
[2024-12-10] MEDS: Meclizine 12.5 MG Tablet PO (14:14)
[2024-12-10] MEDS: 0.9% Normal Saline (1000mL) 1,000 ML 999 ML IV (14:15)
[2024-12-10 14:17] VITALS: BP 103/83; PULSE 68; RESP 18; O2SAT 97; BMI 32.2
[2024-12-10 14:30] LABS: Absolute Lymphocyte Count 2.44 X10^3/uL (0.83-4.51); Basophil# 0.06 X10^3/uL; Basophil% 0.7 % (0-1); Hematocrit 39.1 % (37-47); Hemoglobin 12.1 g/dL (12.0-15.0); Lymphocyte # 2.44 X10^3/ul (0.83-4.51); Lymphocyte % 26.8 % (19-41); Mean Corp Hgb Conc 30.9 g/dL (32-36); Mean Corpuscular Hgb 24.2 pg (27.0-32.0); Mean Platelet Vol. 9.9 fl (6.2-12.0); Monocyte# 0.61 X10^3/uL; Monocyte% 6.7 % (0-10); NRBC Flagged by Analyzer 0 % (0-5); Neutrophil # 5.95 X10^3/uL (2.7-7.7); Neutrophil % 65.5 % (47-70); Platelet Count 355 K/mm3 (150-450); RBC Distribution Width CV 17.2 % (11.6-14.6); RBC Distribution Width SD 47.8 fl (35.1-43.9); Red Blood Count 5.01 M/mm3 (4.2-5.4); White Blood Count 9.1 K/mm3 (4.4-11.0)
[2024-12-10 14:44] LABS: Internal QC Validated? YES +Cl - CLEAR BKGD; Pregnancy, Serum, hCG Quali. NEGATIVE Negative
[2024-12-10 14:51] LABS: ALB/GLOB Ratio 0.8 RATIO (0.9-2.4); AST(SGOT) 27 U/L (15-37); Alanine Aminotransfer ALT/SGPT 47 U/L (13-56); Albumin, Serum 3.5 g/dL (3.2-5.0); Alkaline Phosphatase 112 U/L (45-117); Anion Gap 6 (5-15); BUN 9 mg/dL (7-18); BUN/Creat Ratio 10.4 RATIO (10-20); Calcium,Total 9.5 mg/dL (8.5-10.1); Chloride 106 mmol/L (98-107); Creatinine, Serum 0.87 mg/dL (0.55-1.02); EST Glomerular Filtration Rate 80 mL/min (>60); Est Glom Filt Rate - Afr Amer 97 mL/min (>60); Estimated Creatinine Clearance 102.59 ml/min; Globulin 4.4 g/dL (2.2-4.2); Glucose 88 mg/dL (74-106); Lipase 24 U/L (73-393); Potassium 3.9 mmol/L (3.5-5.1); Protein, Total 7.9 g/dL (6.4-8.2); Sodium Level 138 mmol/L (136-145)
[2024-12-10 14:57] VITALS: BP 112/76; PULSE 69; RESP 18; O2SAT 100
[2024-12-10] MEDS: diazePAM 2 MG Tablet PO (15:23)
--- NOTE | 2024-12-10 15:33 | EX.ED.DYSGE1 ---
HPI History of Present Illness Chief Complaint: General Illness Narrative Narrative: Patient is a 29-year-old female with past medical history of [place]'s disease, gastroparesis, diabetes, seizures, IBS, asthma, migraine headaches, vertigo who presents to the emergency department with a chief complaint of just not feeling well overall and dizziness as well. She states that she is under a lot of stress recently as she recently lost a family member unexpectedly which she knows that stress and stuff can mess with her [place]'s disease. Patient is also complaining some right sided abdominal pain as well as nausea. She states that she is very fatigued overall and does not feel well. Patient denies any sick contacts. [facility] Medical History Addisonian crisis Addisons disease Gastroparesis Dysphagia Wears glasses History of steroid therapy Diabetes Low iron Easy bruising Restless legs Seizures Difficulty swallowing History of ulceration History of IBS History of diverticulitis Gastric reflux Former smoker Asthma Shortness of breath on exertion Cardiology follow-up encounter History of echocardiogram History of stress test Chest pain History of left heart catheterization Anxiety and depression Graves disease Abnormal uterine bleeding (AUB) Endometriosis determined by laparoscopy Adenomyosis Chronic female pelvic pain Migraine Mild intermittent asthma Home Medications ?Medication ?Instructions ?Recorded ?Last Taken ?Type albuterol sulfate 90 mcg/actuation 1 - 2 puff inhalation Q4H PRN PRN 08/04/20 Unknown History aerosol inhaler Sob &/Or Wheezing acarbose 25 mg tablet 25 mg PO TID sugar 08/09/22 08/08/22 History albuterol sulfate 90 mcg/actuation 2 inh inhalation Q4H PRN sob 08/09/22 Unknown History aerosol inhaler (Ventolin HFA) buspirone 5 mg tablet 15 mg PO TID ANXIETY 08/09/22 08/08/22 History eletriptan 40 mg tablet 40 mg PO DAILY migraines 08/09/22 2 Days Ago History ~08/07/22 estradiol 0.0375 mg/24 hr weekly 0.0375 mg transdermal MO HORMONES 08/09/22 08/01/22 History transdermal patch fludrocortisone 0.1 mg tablet 0.1 mg PO DAILY ADDISONS 08/09/22 08/08/22 History glucagon 1 mg/0.2 mL subcutaneous 1 mg subcut DAILY PRN PRN 08/09/22 Unknown History auto-injector (Gvoke HypoPen Hypoglycemia 2-Pack) hydrocortisone sod succinate 100 5 - 15 mg IM TID ADDISONS 08/09/22 08/09/22 History mg solution for injection (Solu-Cortef) hydroxychloroquine 200 mg tablet 200 mg PO BID ARTHRITIS 08/09/22 08/08/22 History tizanidine 4 mg tablet 4 mg PO Q8H PRN Spasms 08/09/22 2 Days Ago History ~08/07/22 ondansetron 4 mg disintegrating 8 mg (2 x 4 mg) PO Q8H PRN PRN 11/03/22 Unknown Rx tablet Nausea #20 tabs ondansetron 4 mg disintegrating 4 mg PO Q8H PRN PRN Nausea #10 tabs 02/12/23 Unknown Rx tablet hyoscyamine sulfate 0.125 mg 0.125 mg PO TID PRN abdominal pain 02/14/23 Unknown Rx sublingual tablet (Levsin/SL) #10 tabs clomipramine 75 mg capsule 100 mg PO DAILY 02/23/23 Unknown History cyclobenzaprine 10 mg tablet 10 mg PO TID 02/23/23 Unknown History gabapentin 100 mg capsule 100 mg PO BID 02/23/23 Unknown History glimepiride 1 mg tablet 1 mg PO DAILY 02/23/23 Unknown History lacosamide 100 mg tablet 100 mg PO BID 02/23/23 Unknown History oxybutynin chloride 5 mg tablet 5 mg PO TID 02/23/23 Unknown History pantoprazole 40 mg tablet,delayed 40 mg PO DAILY 02/23/23 Unknown History release promethazine 25 mg tablet 25 mg PO Q6H PRN PRN Nausea 02/23/23 Unknown History sitagliptin phosphate 100 mg 100 mg PO DAILY 02/23/23 Unknown History tablet (Januvia) sucralfate 100 mg/mL oral 1 g PO BID 02/23/23 Unknown History suspension ondansetron 4 mg disintegrating 4 mg PO Q6H PRN nausea and 06/09/23 Unknown Rx tablet vomiting #12 tabs atorvastatin 10 mg tablet 10 mg PO DAILY 07/24/23 Unknown History clomipramine 50 mg capsule 100 mg PO DAILY 07/24/23 Unknown History dexamethasone 0.5 mg tablet 0.5 mg PO DAILY 07/24/23 Unknown History levothyroxine 125 mcg tablet 125 mcg PO DAILY 07/24/23 Unknown History lorazepam 0.5 mg tablet 0.5 mg PO DAILY PRN anxiety 07/24/23 Unknown History naloxone 4 mg/actuation nasal spray 1 spray intranasal PRN PRN OVERDOSE 07/24/23 Unknown History polyethylene glycol 3350 17 17 g PO DAILY 07/24/23 Unknown History gram/dose oral powder scopolamine base 1 mg over 3 days 1 patch topical Q72H 07/24/23 Unknown History transdermal patch sertraline 50 mg tablet 50 mg PO DAILY 07/24/23 Unknown History metoclopramide HCl 5 mg tablet 5 mg PO Q8H PRN PRN headache #20 04/01/24 Unknown Rx (Reglan) tabs ondansetron 4 mg disintegrating 4 mg PO Q8H PRN PRN Nausea #10 tabs 07/18/24 Unknown Rx tablet oxycodone 5 mg tablet 5 mg PO Q6H PRN pain 3 days #10 07/18/24 Unknown Rx tabs Allergy/AdvReac Type Severity Reaction Status Date / Time acetaminophen (From Excedrin Allergy Anaphylaxis Verified 12/10/24 12:18 Migraine) aspirin (From Excedrin Allergy Anaphylaxis Verified 12/10/24 12:18 Migraine) azithromycin (From Zithromax Allergy Anaphylaxis Verified 12/10/24 12:18 Z-Ruiz) bacitracin (From Neosporin Allergy Swelling Verified 12/10/24 12:18 ([id number])) bacitracin zinc (From Allergy Swelling Verified 12/10/24 12:18 Neosporin ([id number])) caffeine (From Excedrin Allergy Anaphylaxis Verified 12/10/24 12:18 Migraine) latex Allergy Rash Verified 12/10/24 12:18 neomycin sulfate (From Allergy Swelling Verified 12/10/24 12:18 Neosporin ([id number])) polymyxin B (From Neosporin Allergy Swelling Verified 12/10/24 12:18 ([id number])) Family History Uncle Diabetes Cancer lung Father Diabetes Grandfather CVA (cerebral vascular accident) Cancer lung, unsure additional type Uncle Cancer brain Grandmother Cancer lung and unsure additional type Surgical History History of appendectomy Hx laparoscopic cholecystectomy History of left salpingo-oophorectomy History of tubal ligation History of laparoscopic-assisted vaginal hysterectomy History of laparoscopy History of wisdom tooth extraction History of thyroidectomy History of section Social History Smoking Status: Former smoker ROS ROS ED ROS Narrative Constitutional: Complains of head pressure as well as dizziness denies any fevers or chills denies diffuse bodyaches Eyes: Denies change in vision double vision blurry vision Cardiovascular: Denies chest pain or palpitations Respiratory: Denies coughing wheezing shortness of breath Abdomen: Denies abdominal pain nausea vomit diarrhea : Denies any urinary symptoms Neurological: Denies any numbness, weakness, tingling Musculoskeletal: Denies back pain Skin: Denies any rashes or lesions EXAM Physical Exam Narrative Exam Narrative: General: Patient lying in bed rest comfortably did not appear to be in any acute distress Head: Atraumatic, normocephalic Eyes: PERRL bilaterally, EOMI bilateral, no conjunctival injection noted Neck: Soft, supple, trachea midline Cardiovascular: Regular rate and rhythm no murmurs gallops rubs noted Respiratory: Clear to auscultation bilaterally no rales rhonchi or wheezes noted Abdomen: Soft, nondistended, mild tenderness palpation the right upper quadrant no rebound or guarding on exam Extremities: +5/5 strength noted in the bilateral upper and lower extremities, radial pulses +2/4 in the bilateral extremities, no pedal edema on exam, Neurological: Patient commands and that she was at [facility] year is 2024. NIH is 0 GCS 15 Skin: Warm, dry, intact no rashes or lesions noted Const Vital Signs: 12/10/24 12:18 12/10/24 14:17 12/10/24 14:20 Temperature 96.5 F L Temperature Source Temporal Pulse Rate 82 68 Respiratory Rate 15 18 Respiratory Effort Normal Non-Labored Respiratory Pattern Normal Blood Pressure 101/76 103/83 H Blood Pressure Mean 84 89 Pulse Ox 99 97 Oxygen Delivery Method Room Air Room Air 12/10/24 14:57 Temperature Temperature Source Pulse Rate 69 Respiratory Rate 18 Respiratory Effort Respiratory Pattern Blood Pressure 112/76 Blood Pressure Mean 88 Pulse Ox 100 Oxygen Delivery Method Room Air MDM MDM MDM Narrative Medical decision making narrative: Patient is a 29-year-old female who presented to the emergency department the chief complaint of dizziness, generalized not feeling well as well as abdominal pain nausea. On the differential diagnose includes but limited to intracranial hemorrhage, migraine, vertigo, , electrolyte abnormality, dehydration, influenza COVID. Once workup is obtained reviewed she will be reevaluated. Patient given IV fluids and Antivert. Reevaluation she states that she is still having dizziness we will add a CT head on as well as try Valium. Patient CBC reviewed showed no evidence leukocytosis white blood count normal at 9.1, hemoglobin 12.1, plate count to be 355. Patient sodium normal 130, potassium normal 3.9, creatinine normal at 0.87. Patient's AST and ALT were normal at 2747 respectively. Patient lipase normal at 24, test negative. Patient CT abdomen pelvis with IV contrast as well as CT head without contrast pending. Patient tested negative for COVID flu RSV. Patient's case will be signed out to oncoming provider to follow-up on CT results and make ultimate disposition see their note for details. Lab Data Labs: Laboratory Results - last 24 hr 12/10/24 14:22 WBC 9.1 RBC 5.01 Hgb 12.1 Hct 39.1 MCV 78.0 L MCH 24.2 L MCHC 30.9 L RDW Std Deviation 47.8 H RDW Coeff of Renetta 17.2 H Plt Count 355 MPV 9.9 Immature Gran % (Auto) 0.300 Neut % (Auto) 65.5 Lymph % (Auto) 26.8 [place] % (Auto) 6.7 Eos % (Auto) 0.0 Baso % (Auto) 0.7 Absolute Neuts (auto) 6.0 Absolute Lymphs (auto) 2.44 Nucleated RBC % 0 Sodium 138 Potassium 3.9 Chloride 106 Carbon Dioxide 26.0 Anion Gap 6 BUN 9 Creatinine 0.87 Estim Creat Clear Calc 102.59 Est GFR (MDRD) Af Amer 97 Est GFR (MDRD) Non-Af 80 BUN/Creatinine Ratio 10.4 Glucose 88 Calcium 9.5 Total Bilirubin 0.80 AST 27 ALT 47 Alkaline Phosphatase 112 Total Protein 7.9 Albumin 3.5 Globulin 4.4 H Albumin/Globulin Ratio 0.8 L Lipase 24 L Serum , Qual NEGATIVE Discharge Plan Triage Chief Complaint: General Illness ED Provider: Diallo Lowery Dx/Rx/DC Orders Prescriptions: No Action albuterol sulfate 1 INHALER inhaler 1 - 2 puff INHALATION Q4H PRN PRN (Reason: Sob &/Or Wheezing) Solu-Cortef 100 mg recon soln 5 - 15 mg IM TID buspirone 5 mg tablet 15 mg PO TID Patient Comments: TAKE 1 TABLET BY MOUTH THREE TIMES DAILY tizanidine 4 mg tablet 4 mg PO Q8H PRN (Reason: Spasms) Patient Comments: TAKE 1 TABLET BY MOUTH EVERY 8 HOURS NEEDED hydroxychloroquine 200 mg tablet 200 mg PO BID Patient Comments: Take 1 tablet by mouth twice daily. albuterol sulfate [Ventolin HFA] 90 mcg/actuation HFA aerosol inhaler 2 inh INHALATION Q4H PRN (Reason: sob) Patient Comments: Inhale 2 Puffs as instructed every 4 hours as needed. fludrocortisone 0.1 mg tablet 0.1 mg PO DAILY Patient Comments: TAKE 1 TABLET BY MOUTH EVERY DAY acarbose 25 mg tablet 25 mg PO TID Patient Comments: TAKE 1 TABLET THREE TIMES DAILY eletriptan 40 mg tablet 40 mg PO DAILY Patient Comments: Take 1 tablet at the onset of migraine. Repeat 1 dose in 2 hours, if needed. estradiol 0.0375 mg/24 hr patch weekly 0.0375 mg transdermal MO Patient Comments: Apply 1 Patch as directed one time a week. Gvoke HypoPen 2-Pack 1 mg/0.2 mL auto-injector 1 mg SUBCUT DAILY PRN PRN (Reason: Hypoglycemia) Patient Comments: Inject 1 mg subcutaneously as needed. ondansetron [ondansetron] 4 mg tablet,disintegrating 8 mg PO Q8H PRN PRN (Reason: Nausea) Qty: 20 0RF ondansetron 4 mg tablet,disintegrating 4 mg PO Q8H PRN PRN (Reason: Nausea) Qty: 10 0RF hyoscyamine sulfate [Levsin/SL] 0.125 mg tablet, sublingual 0.125 mg PO TID PRN (Reason: abdominal pain) Qty: 10 0RF cyclobenzaprine 10 mg tablet 10 mg PO TID clomipramine 75 mg capsule 100 mg PO DAILY sucralfate 100 mg/mL suspension 1 g PO BID glimepiride 1 mg tablet 1 mg PO DAILY pantoprazole 40 mg tablet,delayed release (DR/EC) 40 mg PO DAILY promethazine 25 mg tablet 25 mg PO Q6H PRN PRN (Reason: Nausea) gabapentin 100 mg capsule 100 mg PO BID oxybutynin chloride 5 mg tablet 5 mg PO TID Januvia 100 mg tablet 100 mg PO DAILY lacosamide 100 mg tablet 100 mg PO BID ondansetron 4 mg tablet,disintegrating 4 mg PO Q6H PRN (Reason: nausea and vomiting) Qty: 12 0RF lorazepam 0.5 mg tablet 0.5 mg PO DAILY PRN (Reason: anxiety) Patient Comments: Take 1 tablet by mouth once daily as needed for up to 30 days. dexamethasone 0.5 mg tablet 0.5 mg PO DAILY Patient Comments: TAKE 1 TABLET BY MOUTH EVERY 6 HOURS atorvastatin 10 mg tablet 10 mg PO DAILY Patient Comments: TAKE 1 TABLET BY MOUTH ONCE DAILY levothyroxine 125 mcg tablet 125 mcg PO DAILY Patient Comments: Take 1 tablet by mouth once daily. M=S AND 1.5 ON MONDAY polyethylene glycol 3350 17 gram/dose powder 17 g PO DAILY Patient Comments: Take 17 g by mouth once daily. Dissolve dose in 4 - 8 ounces of liquid and take as directed. sertraline 50 mg tablet 50 mg PO DAILY Patient Comments: Take 1 tablet by mouth once daily. Take 1/2 tab once a day orally for one week then 1 tab once a day scopolamine base 1 mg over 3 days patch 3 day 1 patch topical Q72H Patient Comments: Place 1 patch on skin every 72 hours. naloxone 4 mg/actuation spray,non-aerosol 1 spray INTRANASAL PRN PRN (Reason: OVERDOSE) Patient Comments: [place] 0.1 mL (contents of one device) into one nostril upon signs of opioid overdose. Call 911. May repeat once if no response within 2-3 minutes. clomipramine 50 mg capsule 100 mg PO DAILY Patient Comments: TAKE 2 CAPSULES BY MOUTH EVERY DAY AT BEDTIME metoclopramide HCl [Reglan] 5 mg tablet 5 mg PO Q8H PRN PRN (Reason: headache) Qty: 20 0RF ondansetron 4 mg tablet,disintegrating 4 mg PO Q8H PRN PRN (Reason: Nausea) Qty: 10 0RF oxycodone 5 mg tablet 5 mg PO Q6H PRN (Reason: pain) 3 Days Qty: 10 0RF Primary Care Provider: Kevin Stauffer Referrals: Kevin Stauffer MD [Primary Care Provider] - Print Language: Micronesian
--- NOTE | 2024-12-10 15:40 | CT_ITS ---
EXAM: BRAIN/HEAD WITHOUT CONTRAST CLINICAL HISTORY: Dizzy COMPARISON: None. TECHNIQUE: Noncontrast images of the head with multiplanar reconstructions. Dose reduction techniques were used including intermediate exposure control (AEC),iterative reconstruction technique, and/or mA and/or KV dose adjustments based on patient's size. FINDINGS: CT HEAD FINDINGS: No acute intracranial hemorrhage, mass, mass effect, midline shift or pathologic extra-axial fluid collection. No hydrocephalus. Age- appropriate cerebral volume and white matter. Visualized paranasal sinuses and mastoid air cells are clear. The calvarium is grossly intact. CT/Brain/Head without Contrast IMPRESSION: No CT evidence of acute intracranial pathology. Reading Location: [facility]
--- NOTE | 2024-12-10 15:40 | CT_ITS ---
PROCEDURE: ABDOMEN/PELVIS W IV CONT ONLY REASON FOR EXAM: Epigastric pain TECHNIQUE: Abdomen and pelvis CT with intravenous contrast. IV CONTRAST: COMPARISON: 07/18/2024 FINDINGS: Lung bases: Clear Liver: Diffuse fatty infiltration. Gallbladder: Surgically absent. Spleen: Unremarkable. Pancreas: Normal size without evidence of mass surrounding inflammation or ductal dilation. Adrenals: Unremarkable. Kidneys: Normal renal sizes. No hydronephrosis. Bladder: Unremarkable. Reproductive Organs: Prior hysterectomy. Adnexal regions are unremarkable. Bowel: No bowel obstruction. Appendix: Normal. Lymph nodes: No suspicious lymph node enlargement. Vasculature: Major vascular structures are unremarkable. Peritoneum / Retroperitoneum: No ascites. No free air. Bones: Unremarkable. CT/Abdomen/Pelvis W IV Cont ONLY IMPRESSION: 1. No acute abnormality in the abdomen and pelvis. 2. Hepatic steatosis One or more dose reduction techniques were used (e.g., Automated exposure contr ol, adjustment of the mA and/or kV according to patient size, use of iterative reconstruction technique). Reading Location: [facility]
[2024-12-10 16:00] VITALS: PULSE 76; RESP 18; O2SAT 96
[2024-12-10 17:28] VITALS: BP 110/78; PULSE 72; RESP 16; TEMP 36.8; O2SAT 99
== END 2024-12-10 17:29 | disposition home or self-care (01) ==
PROVIDERS: Emergency Medicine; Emergency Provider Emergency Medicine; PCP Family Medicine; Visit Provider Emergency Medicine
DX: R42 Dizziness and giddiness (principal); E27.1 Primary adrenocortical insufficiency; G40.909 Epilepsy, unspecified, not intractable, without status epilepticus; E11.43 Type 2 diabetes mellitus with diabetic autonomic (poly)neuropathy; R10.9 Unspecified abdominal pain; R11.0 Nausea; K31.84 Gastroparesis; K58.9 Irritable bowel syndrome, unspecified; E05.00 Thyrotoxicosis with diffuse goiter without thyrotoxic crisis or storm; J45.20 Mild intermittent asthma, uncomplicated; F32.A Depression, unspecified; F41.9 Anxiety disorder, unspecified; G43.909 Migraine, unspecified, not intractable, without status migrainosus; Z88.1 Allergy status to other antibiotic agents; Z79.84 Long term (current) use of oral hypoglycemic drugs; Z79.899 Other long term (current) drug therapy; Z79.890 Hormone replacement therapy; Z87.891 Personal history of nicotine dependence
CPT/HCPCS: 70450; 74177; 80053; 83690; 84703; 85025; 87631; 93005; 96361; 96374; 99285; Q9967; A4216; J2405

== ENCOUNTER 2025-02-16 16:23 | Inpatient (IN) | payer MEDICAID, SELFPAY ==
[2025-02-16] VITALS (8 sets, daily range): BP systolic 98–132; BP diastolic 56–91; PULSE 61–116; RESP 15–20; TEMP 36.1–36.8; O2SAT 95–100; BMI 31.1; BMI 30.7
--- NOTE | 2025-02-16 16:40 | EKG12_ITS ---
Test Reason : Blood Pressure : */* mmHG Vent. Rate : 73 BPM Atrial Rate : 73 BPM P-R Int : 156 ms QRS Dur : 104 ms QT Int : 384 ms P-R-T Axes : 29 18 4 degrees QTcB Int : 423 ms Normal sinus rhythm Incomplete right bundle branch block ST & T wave abnormality, consider anterior ischemia Abnormal ECG Confirmed by HENNA PRO, ALEX ([id number]), social media editor ABDOUL MUSTAFA ([id number]) on 02/19/2025 11:54:12 AM Referred By: Agustín Noriega Confirmed By: ALEX AGUILLON MD
--- NOTE | 2025-02-16 16:41 | EX.ED.DYSGE1 ---
HPI History of Present Illness Chief Complaint: Nausea/Vomiting Detail of Chief Complaint: I feel terrible Informant: patient and spouse/S.O. Onset/Context/Timing Onset: Days Context: Sudden Onset Timing: Continuous Quality: Nausea, vomiting diarrhea, history of Davonte's disease Location: Generalized Current Severity: Moderate Maximum Severity: Severe Worsened by: Orthostatic lightheadedness, has not taken Decadron in a couple of weeks Relieved by: nothing Associated Symptoms Associated Symptoms: HPI narrative Narrative Narrative: Patient is a 29-year-old female. She has not felt well for the past several days. She initially had diarrhea. She has had nausea and vomiting for the past 24+ hours. Patient denies hematemesis, coffee-ground emesis, melena or hematochezia. She states she feels terrible. She denies headache. She states she feels tired. She has had no visual ocular auditory symptoms. She does endorse thirst dry mouth, decreased urine output and orthostatic lightheadedness. Patient states she ran out of Decadron has not taken it for couple of weeks. She is status post hysterectomy with bilateral salpingo-oophorectomy due to extensive endometriosis. She does have history of diabetes with gastroparesis. Review of prior records also indicates she has a history of Graves' disease, seizure disorder and migraine headaches. She presently does complain of mild headache. She denies ringing or ears decreased hearing. She has no respiratory symptoms. She denies chest discomfort. Prior similar symptoms: Yes Recent Illness/Hospitalization: No PFSH PFSH Medical History Addisonian crisis Addisons disease Gastroparesis Dysphagia Wears glasses History of steroid therapy Diabetes Low iron Easy bruising Restless legs Seizures Difficulty swallowing History of ulceration History of IBS History of diverticulitis Gastric reflux Former smoker Asthma Shortness of breath on exertion Cardiology follow-up encounter History of echocardiogram History of stress test Chest pain History of left heart catheterization Anxiety and depression Graves disease Abnormal uterine bleeding (AUB) Endometriosis determined by laparoscopy Adenomyosis Chronic female pelvic pain Migraine Mild intermittent asthma Home Medications ?Medication ?Instructions ?Recorded ?Last Taken ?Type albuterol sulfate 90 mcg/actuation 1 - 2 puff inhalation Q4H PRN PRN 08/04/20 Unknown History aerosol inhaler Sob &/Or Wheezing albuterol sulfate 90 mcg/actuation 2 inh inhalation Q4H PRN sob 08/09/22 Unknown History aerosol inhaler (Ventolin HFA) eletriptan 40 mg tablet 40 mg PO DAILY migraines 08/09/22 2 Days Ago History ~08/07/22 tizanidine 4 mg tablet 4 mg PO Q8H PRN Spasms 08/09/22 2 Days Ago History ~08/07/22 ondansetron 4 mg disintegrating 8 mg (2 x 4 mg) PO Q8H PRN PRN 11/03/22 Unknown Rx tablet Nausea #20 tabs ondansetron 4 mg disintegrating 4 mg PO Q8H PRN PRN Nausea #10 tabs 02/12/23 Unknown Rx tablet clomipramine 75 mg capsule 100 mg PO DAILY see pcp 02/23/23 Unknown History pantoprazole 40 mg tablet,delayed 40 mg PO DAILY see pcp 02/23/23 Unknown History release promethazine 25 mg tablet 25 mg PO Q6H PRN PRN Nausea 02/23/23 Unknown History ondansetron 4 mg disintegrating 4 mg PO Q6H PRN nausea and 06/09/23 Unknown Rx tablet vomiting #12 tabs atorvastatin 10 mg tablet 10 mg PO DAILY hyperlipidemia 07/24/23 Unknown History clomipramine 50 mg capsule 100 mg PO BID see pcp 07/24/23 Unknown History dexamethasone 0.5 mg tablet 0.5 mg PO DAILY see pcp 07/24/23 Unknown History levothyroxine 125 mcg tablet 125 mcg PO DAILY see pcp 07/24/23 Unknown History naloxone 4 mg/actuation nasal spray 1 spray intranasal PRN PRN OVERDOSE 07/24/23 Unknown History ondansetron 4 mg disintegrating 4 mg PO Q8H PRN PRN Nausea #10 tabs 07/18/24 Unknown Rx tablet ondansetron 4 mg disintegrating 4 mg PO Q6H PRN nausea and 12/10/24 Unknown Rx tablet vomiting #20 tabs alprazolam 0.5 mg tablet 0.5 mg PO TID PRN PRN anxiety 02/16/25 Unknown History empagliflozin 10 mg tablet 10 mg PO DAILY see pcp 02/16/25 Unknown History (Jardiance) erenumab-aooe 70 mg/mL 70 mg subcut QMONTH see pcp 02/16/25 Unknown History subcutaneous auto-injector (Aimovig Autoinjector) lamotrigine 100 mg tablet 100 mg PO DAILY see pcp 02/16/25 Unknown History lurasidone 60 mg tablet 60 mg PO QPM see pcp 02/16/25 Unknown History tirzepatide 2.5 mg/0.5 mL 2.5 mg subcut QWEEK see PCP 02/16/25 Unknown History subcutaneous pen injector (Mounjaro) topiramate 25 mg tablet 25 mg PO QHS migraine 02/16/25 Unknown History Allergy/AdvReac Type Severity Reaction Status Date / Time acetaminophen (From Excedrin Allergy Anaphylaxis Verified 02/16/25 16:25 Migraine) aspirin (From Excedrin Allergy Anaphylaxis Verified 02/16/25 16:25 Migraine) azithromycin (From Zithromax Allergy Anaphylaxis Verified 02/16/25 16:25 Z-Ruiz) bacitracin (From Neosporin Allergy Swelling Verified 02/16/25 16:25 ([id number])) bacitracin zinc (From Allergy Swelling Verified 02/16/25 16:25 Neosporin ([id number])) caffeine (From Excedrin Allergy Anaphylaxis Verified 02/16/25 16:25 Migraine) latex Allergy Rash Verified 02/16/25 16:25 neomycin sulfate (From Allergy Swelling Verified 02/16/25 16:25 Neosporin ([id number])) polymyxin B (From Neosporin Allergy Swelling Verified 02/16/25 16:25 ([id number])) Family History Uncle Diabetes Cancer lung Father Diabetes Grandfather CVA (cerebral vascular accident) Cancer lung, unsure additional type Uncle Cancer brain Grandmother Cancer lung and unsure additional type Surgical History History of appendectomy Hx laparoscopic cholecystectomy History of left salpingo-oophorectomy History of tubal ligation History of laparoscopic-assisted vaginal hysterectomy History of laparoscopy History of wisdom tooth extraction History of thyroidectomy History of section Social History (Updated 02/16/25 @ 16:54 by Vesta Lucero) household members: spouse housing: house Smoking Status: Former smoker ROS ROS ED Constitutional Constitutional ED: Reports chills; Denies fever(s), subjective, sweats or weight loss Eyes Eyes: Denies blurry vision, change in vision or diplopia ENT ENT ED: Denies ear pain, rhinorrhea or sore throat Cardiovascular Cardiovascular: Denies chest pain or palpitations Respiratory/Chest Respiratory/Chest: Denies cough, dyspnea or dyspnea on exertion Gastrointestinal Gastrointestinal: Reports abdominal pain, diarrhea, nausea and vomiting; Denies constipation or melena Genitourinary Genitourinary ED: Denies dysuria, hematuria or urinary frequency Musculoskeletal Musculoskeletal: Denies arthralgias or myalgias Integumentary Denies rash Neurologic Neurologic: Reports weakness; Denies headache(s) or paresthesias Psychiatric Psychiatric: Reports depression Hematologic/Lymphatic Hematologic/Lymphatic: Reports systems reviewed and no addt'l complaints, except as documented Allergic/Immunologic Allergic/Immunologic ED: Denies mouth swelling or tongue swelling EXAM Physical Exam Const Vital Signs: 02/16/25 16:25 02/16/25 16:53 02/16/25 18:25 Temperature 97.3 F L Temperature Source Temporal Pulse Rate 116 H 79 67 Respiratory Rate 20 H 19 H 15 Blood Pressure 132/91 H 120/79 110/75 Blood Pressure Mean 104 92 86 Pulse Ox 100 99 95 Oxygen Delivery Method Room Air Room Air 02/16/25 19:05 Temperature 97 F L Temperature Source Pulse Rate 61 Respiratory Rate 16 Blood Pressure 116/75 Blood Pressure Mean 88 Pulse Ox 96 Oxygen Delivery Method Positive well nourished and well developed Constitutional Narrative: Patient has some vann face and buffalo hump. There is some telangiectasias noted of the extremities. There is no petechiae. Vital signs remarkable for heart rate of 116. General Appearance ED: well developed and pallor HEENT Reports dry mucous membranes HEENT Narrative: Head is atraumatic normocephalic. Ears normal. Nares patent. Posterior pharynx is normal. Mouth ED: Yes dry mucous membranes Mouth: dry mucous membranes Eyes PERRL and EOMs intact bilaterally General Eye ED: Negative for pale conjunctiva or scleral icterus Neck no lymphadenopathy, supple and no JVD Resp normal respiratory effort and clear to auscultation bilaterally Cardio regular rhythm, S1 normal heart sound, S2 normal heart sound and no murmurs Rate: tachycardic GI normal to inspection, nondistended, normoactive bowel sounds, non-distended and no masses; Negative for non-tender or hepatosplenomegaly Palpation: soft and tender other (Generalized); Negative for guarding, mass or rebound tenderness present Extremity normal to inspection General Extremety ED: Negative for edema or tenderness General Extremity: Negative for edema Neuro oriented x3 and CN's II-XII intact bilaterally Neuro Narrative: Moves all extremities. No obvious focal findings. Sensorium / Orientation: Negative for alert Skin no rashes or lesions noted, no wounds and No skin turgor normal General Skin Exam: pallor; Negative for elasticity normal or jaundice MDM MDM MDM Narrative Medical decision making narrative: Patient appears ill. Suspect she has a viral illness and possible adrenal insufficiency crisis due to her illness and lack of steroids. I will 100 mg of Solu-Cortef was ordered. Appropriate blood work was ordered. Clinically she appears dehydrated. 1 L normal saline was ordered. Competence of metabolic panel was obtained to assess renal function, CO2 anion gap as well as glucose since she is diabetic. Concern for hypokalemia because of the diarrhea. Will obtain urine to rule out infection and to assess for ketones. History & Record Review Additional record(s) reviewed:: Prior inpatient record (Last admission was July 2022 for [place]'s crisis.), Prior outpatient record, Prior ED visit and Prior labs Lab Data Attestation: I reviewed the patient's lab results. Lab results narrative: CBC is remarkable for microcytic indices. Urinalysis is unremarkable. Macro was positive for occult blood and leukoesterase. Micro is negative. Comprehensive metabolic panel is unremarkable. Lactate is elevated 2.5. Labs: Laboratory Results - last 24 hr 02/16/25 02/16/25 02/16/25 16:41 17:00 19:00 WBC 7.1 RBC 4.91 Hgb 12.1 Hct 38.2 MCV 77.8 L MCH 24.6 L MCHC 31.7 L RDW Std Deviation 47.2 H RDW Coeff of Renetta 16.7 H Plt Count 347 MPV 9.8 Immature Gran % (Auto) 0.400 Neut % (Auto) 46.3 L Lymph % (Auto) 41.9 H [place] % (Auto) 9.3 Eos % (Auto) 1.7 Baso % (Auto) 0.4 Absolute Neuts (auto) 3.3 Absolute Lymphs (auto) 2.97 Nucleated RBC % 0 Sodium 138 Potassium 3.4 Chloride 102 Carbon Dioxide 23.4 Anion Gap 13 BUN 4 Creatinine 0.82 Estim Creat Clear Calc 107.02 Est GFR (MDRD) Non-Af 98 BUN/Creatinine Ratio 4.6 L Glucose 93 Lactic Acid 2.5 H* Calcium 9.4 Total Bilirubin 0.94 AST 26 ALT 32 Alkaline Phosphatase 114 H Troponin T High Sens 6 Troponin T Hi Sens 2 Hr < 6 Total Protein 7.9 Albumin 4.3 Globulin 3.6 Albumin/Globulin Ratio 1.2 Urine Color Straw Urine Clarity Clear Urine pH 6.0 Ur Specific [place] 1.005 Urine Protein Negative Urine Glucose (UA) Normal Urine Ketones Negative Urine Occult Blood 10 H Urine Nitrite Negative Urine Bilirubin Negative Urine Urobilinogen Normal Ur Leukocyte Esterase 25 H Urine RBC 0-5 SEEN Urine WBC 0-5 SEEN Ur Squamous Epith Cells 0-5 SEEN Urine Bacteria 0 SEEN Urine Mucus 0 SEEN EKG Initial EKG: Attestation: I personally reviewed and interpreted this EKG as follows: Interpretation: Sinus Rhythm (Sinus rhythm rate of 73. There is evidence of an incomplete right bundle branch block. VT interval 256 ms cures duration 104 ms. QT duration 294 ms. [place] is normal. It is unchanged from December 10, 2024.) Prior: Unchanged (December 10, 2024.) Management Discussion w/another healthcare provider: Hospitalist (Dr. Wang was made aware of patient's history, past medical history, presentation findings and results. Plan is full admission medical surgical for.) Treatment and Re-Evaluation :: Patient was reassessed at 1750. She still does not appear well and reports she does not feel any better. Her heart rate has improved. Her heart rate is now 66 on the monitor. Her blood pressure is stable. 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
[2025-02-16] MEDS: Hydrocortisone Sod Succinate 100 MG/2 ML Vial IV (16:50)
[2025-02-16] MEDS: 0.9% Normal Saline (1000mL) 1,000 ML 1000 ML IV (16:52)
[2025-02-16 16:58] LABS: Absolute Lymphocyte Count 2.97 X10^3/uL (0.83-4.51); Absolute Neutrophil Count 3.3 X10^3/uL (2.0-7.7); Basophil# 0.03 X10^3/uL; Basophil% 0.4 % (0-1); Eosinophil# 0.12 X10^3/uL; Eosinophils% 1.7 % (0-5); Hematocrit 38.2 % (37-47); Hemoglobin 12.1 g/dL (12.0-15.0); Lymphocyte # 2.97 X10^3/ul (0.83-4.51); Lymphocyte % 41.9 % (19-41); Mean Corp Hgb Conc 31.7 g/dL (32-36); Mean Corpuscular Hgb 24.6 pg (27.0-32.0); Mean Corpuscular Volume 77.8 fL (81-99); Mean Platelet Vol. 9.8 fl (6.2-12.0); Monocyte# 0.66 X10^3/uL; Monocyte% 9.3 % (0-10); NRBC Flagged by Analyzer 0 % (0-5); Neutrophil # 3.27 X10^3/uL (2.7-7.7); Neutrophil % 46.3 % (47-70); Platelet Count 347 K/mm3 (150-450); RBC Distribution Width CV 16.7 % (11.6-14.6); RBC Distribution Width SD 47.2 fl (35.1-43.9); Red Blood Count 4.91 M/mm3 (4.2-5.4); White Blood Count 7.1 K/mm3 (4.4-11.0)
[2025-02-16 17:05] LABS: Bacteria 0 SEEN /hpf (None Seen); Mucous, Urine 0 SEEN /hpf (<or=2+)
[2025-02-16 17:06] LABS: Color, Urine Straw (Yellow); Glucose, Dipstick Normal (Normal); Ketone-Dipstick Negative (Negative); Leukocyte Esterase-Dipstick 25 /ul (Negative); Nitrite-Dipstick Negative (Negative); Occult Blood-Urine 10 /ul (Negative); Protein-Dipstick Negative (Negative); Specific Gravity, Urine 1.005 (1.002-1.030); Urine Bilirubin Dipstick Negative (Negative); Urine Clarity Clear (Clear); Urine Urobilinogen Normal (Normal)
[2025-02-16 17:15] LABS: Red Blood Cells-Urine 0-5 SEEN /hpf (0-5); Squamous Epithelial Cells - UA 0-5 SEEN /hpf (5-10); White Blood Cells 0-5 SEEN /hpf (0-5)
[2025-02-16 17:21] LABS: ALB/GLOB Ratio 1.2 RATIO (0.9-2.4); AST(SGOT) 26 U/L (<=31); Alanine Aminotransfer ALT/SGPT 32 U/L (<=34); Albumin, Serum 4.3 g/dL (3.5-5.0); Alkaline Phosphatase 114 U/L (35-104); Anion Gap 13 (5-15); BUN 4 mg/dL (4-19); BUN/Creat Ratio 4.6 RATIO (10-20); Calcium,Total 9.4 mg/dL (7.6-11.0); Carbon Dioxide 23.4 mmol/L (21.0-32.0); Chloride 102 mmol/L (98-108); Creatinine, Serum 0.82 mg/dL (0.70-1.20); EST Glomerular Filtration Rate 98 (>60); Estimated Creatinine Clearance 107.02 ml/min (50-250); Globulin 3.6 g/dL (2.2-4.2); Glucose 93 mg/dL (70-99); Potassium 3.4 mmol/L (3.3-5.1); Protein, Total 7.9 g/dL (5.9-8.4); Sodium Level 138 mmol/L (133-145); Total Bilirubin 0.94 mg/dL (0.00-1.30); Troponin T High Sensitivity 6 ng/L (<=14)
[2025-02-16 17:34] LABS: Lactic Acid 2.5 mmol/L (0.0-2.0)
--- NOTE | 2025-02-16 19:06 | PCM.HP.STD ---
HPI - General General Date of Admission: 02/16/25 Date of Service: 02/16/25 Chief Complaint: N/V/Diarrhea, poor PO, not taking her Davonte's medications HPI Narrative SONIA SZYMANSKI, is a 29-year-old female history of Davonte's disease, anxiety, migraines, ?diabetes, GERD, non focal stress induced seizures, and hypothyroidism who presented to [facility] ED 02/16/2025 with nausea and vomiting with orthostatic lightheadedness in the setting of not taking her Decadron for Davonte's for a week or two because she did not pick it up. She initially had diarrhea and has felt unwell for several days and now has had nausea and vomiting since this AM. Feels tired and has dry mouth and is not urinating as much, also reports some orthostatic lightheadedness. In the ED patient initially tachycardic with heart rate of 116, blood pressure 132/91, afebrile, respiratory rate 20 saturating 100% on room air. CBC and BMP no acute process however lactic was 2.5. Patient given IV fluids and IV steroids however still feels generally unwell so hospitalist contacted for admission. Patient evaluated at bedside. Pt reports she started having diarrhea a couple of days ago and nausea and vomiting today, she hasn't been taking her Decadron which she takes reportedly for her Center Line's disease because she did not pick it up, patient not very forthcoming with how long she has not been taking this but sounds as though it has been a week or 2, she also has not been taking her Topamax or her Synthroid. Patient reports that she does get the symptoms when she does not take her medications. Initially reports no abdominal pain but then reports some upper abdominal discomfort that she says happens whenever she is having any symptoms and that this is not new. Patient denies any fever, she reports she feels a little bit dizzy and that Like she is spinning. Patient said she felt weird earlier and that she has a history of nonfocal stress-induced seizures for which she just takes Topamax and has not been taking this (fill history show she takes this for migraines) and that she thinks she may have had 1 earlier because she was dizzy and confused. When asking if patient has ever had an epileptic seizure she denies, asked if she follows with a neurologist for these nonfocal stress-induced seizures and she said no, she does follow with a neurologist for her migraines but said that they do not talk about the seizures. [facility] Medical History Addisonian crisis Addisons disease Gastroparesis Dysphagia Wears glasses History of steroid therapy Diabetes Low iron Easy bruising Restless legs Seizures Difficulty swallowing History of ulceration History of IBS History of diverticulitis Gastric reflux Former smoker Asthma Shortness of breath on exertion Cardiology follow-up encounter History of echocardiogram History of stress test Chest pain History of left heart catheterization Anxiety and depression Graves disease Abnormal uterine bleeding (AUB) Endometriosis determined by laparoscopy Adenomyosis Chronic female pelvic pain Migraine Mild intermittent asthma Home Medications ?Medication ?Instructions ?Recorded ?Last Taken ?Type albuterol sulfate 90 mcg/actuation 1 - 2 puff inhalation Q4H PRN PRN 08/04/20 Unknown History aerosol inhaler Sob &/Or Wheezing albuterol sulfate 90 mcg/actuation 2 inh inhalation Q4H PRN sob 08/09/22 Unknown History aerosol inhaler (Ventolin HFA) eletriptan 40 mg tablet 40 mg PO DAILY migraines 08/09/22 2 Days Ago History ~08/07/22 tizanidine 4 mg tablet 4 mg PO Q8H PRN Spasms 08/09/22 2 Days Ago History ~08/07/22 ondansetron 4 mg disintegrating 8 mg (2 x 4 mg) PO Q8H PRN PRN 11/03/22 Unknown Rx tablet Nausea #20 tabs ondansetron 4 mg disintegrating 4 mg PO Q8H PRN PRN Nausea #10 tabs 02/12/23 Unknown Rx tablet clomipramine 75 mg capsule 100 mg PO DAILY 02/23/23 Unknown History pantoprazole 40 mg tablet,delayed 40 mg PO DAILY 02/23/23 Unknown History release promethazine 25 mg tablet 25 mg PO Q6H PRN PRN Nausea 02/23/23 Unknown History ondansetron 4 mg disintegrating 4 mg PO Q6H PRN nausea and 06/09/23 Unknown Rx tablet vomiting #12 tabs atorvastatin 10 mg tablet 10 mg PO DAILY 07/24/23 Unknown History clomipramine 50 mg capsule 100 mg PO DAILY 07/24/23 Unknown History dexamethasone 0.5 mg tablet 0.5 mg PO DAILY 07/24/23 Unknown History levothyroxine 125 mcg tablet 125 mcg PO DAILY 07/24/23 Unknown History naloxone 4 mg/actuation nasal spray 1 spray intranasal PRN PRN OVERDOSE 07/24/23 Unknown History ondansetron 4 mg disintegrating 4 mg PO Q8H PRN PRN Nausea #10 tabs 07/18/24 Unknown Rx tablet ondansetron 4 mg disintegrating 4 mg PO Q6H PRN nausea and 12/10/24 Unknown Rx tablet vomiting #20 tabs alprazolam 0.5 mg tablet 0.5 mg PO TID PRN PRN anxiety 02/16/25 Unknown History empagliflozin 10 mg tablet 10 mg PO DAILY see pcp 02/16/25 Unknown History (Jardiance) erenumab-aooe 70 mg/mL 70 mg subcut QMONTH see pcp 02/16/25 Unknown History subcutaneous auto-injector (Aimovig Autoinjector) lamotrigine 100 mg tablet 100 mg PO DAILY see pcp 02/16/25 Unknown History lurasidone 60 mg tablet 60 mg PO QPM see pcp 02/16/25 Unknown History tirzepatide 2.5 mg/0.5 mL 2.5 mg subcut QWEEK see PCP 02/16/25 Unknown History subcutaneous pen injector (Toyunyadiraro) topiramate 25 mg tablet 25 mg PO QHS migraine 02/16/25 Unknown History Allergy/AdvReac Type Severity Reaction Status Date / Time acetaminophen (From Excedrin Allergy Anaphylaxis Verified 02/16/25 16:25 Migraine) aspirin (From Excedrin Allergy Anaphylaxis Verified 02/16/25 16:25 Migraine) azithromycin (From Zithromax Allergy Anaphylaxis Verified 02/16/25 16:25 Z-Ruiz) bacitracin (From Neosporin Allergy Swelling Verified 02/16/25 16:25 ([id number])) bacitracin zinc (From Allergy Swelling Verified 02/16/25 16:25 Neosporin ([id number])) caffeine (From Excedrin Allergy Anaphylaxis Verified 02/16/25 16:25 Migraine) latex Allergy Rash Verified 02/16/25 16:25 neomycin sulfate (From Allergy Swelling Verified 02/16/25 16:25 Neosporin ([id number])) polymyxin B (From Neosporin Allergy Swelling Verified 02/16/25 16:25 ([id number])) Family History Uncle Diabetes Cancer lung Father Diabetes Grandfather CVA (cerebral vascular accident) Cancer lung, unsure additional type Uncle Cancer brain Grandmother Cancer lung and unsure additional type Surgical History History of appendectomy Hx laparoscopic cholecystectomy History of left salpingo-oophorectomy History of tubal ligation History of laparoscopic-assisted vaginal hysterectomy History of laparoscopy History of wisdom tooth extraction History of thyroidectomy History of section Social History (Updated 02/16/25 @ 16:54 by Vesta Lucero) household members: spouse housing: house Smoking Status: Former smoker ROS ROS Narrative General: Denies fever/chills HENT: denies stuffy nose, denies sore throat EYES: Denies changes in vision but feels like she is spinning Resp: Denies cough, denies shortness of breath Cardiac: Denies chest pain GI: Has a little upper abdominal discomfort that she did not note until palpation said this is not new, has had diarrhea as well as nausea and vomiting, no blood in her stool : Some decreased urination Extremity: Denies swelling MSK: Generalized weakness Neuro: Has some tingling in hands and feet from her diabetes which she reports is chronic Heme: Denies any bleeding or bruising Skin: Denies rashes Psychiatric: No complaints voiced Vital Signs Vital Signs Vital Signs: 02/16/25 16:25 02/16/25 16:53 02/16/25 18:25 Temperature 97.3 F L Temperature Source Temporal Pulse Rate 116 H 79 67 Respiratory Rate 20 H 19 H 15 Blood Pressure 132/91 H 120/79 110/75 Blood Pressure Mean 104 92 86 Pulse Ox 100 99 95 Oxygen Delivery Method Room Air Room Air Weight Weight: 85 kg Body Mass Index (BMI) 31.1 Physical Exam Narrative General: Alert, oriented HEENT: Atraumatic, normocephalic Eyes: Anicteric, normal conjunctiva, extraocular movements grossly intact Neck: Supple Respiratory: Clear to auscultation bilaterally, normal respiratory effort Cardiovascular: Regular rate and rhythm GI: Soft, no significant tenderness, no rebound, guarding, rigidity, nondistended Extremities: No edema Musculoskeletal: Moving all extremities Neuro: No overt focal neurological deficits Skin: No rashes appreciated Psych: Cooperative Results Lab / Micro Data 02/16/25 16:41 02/16/25 16:41 Labs: Laboratory Results - last 24 hr 02/16/25 16:41: WBC 7.1, RBC 4.91, Hgb 12.1, Hct 38.2, MCV 77.8 L, MCH 24.6 L, MCHC 31.7 L, RDW Std Deviation 47.2 H, RDW Coeff of Renetta 16.7 H, Plt Count 347, MPV 9.8, Immature Gran % (Auto) 0.400, Neut % (Auto) 46.3 L, Lymph % (Auto) 41.9 H, [place] % (Auto) 9.3, Eos % (Auto) 1.7, Baso % (Auto) 0.4, Absolute Neuts (auto) 3.3, Absolute Lymphs (auto) 2.97, Nucleated RBC % 0, Sodium 138, Potassium 3.4, Chloride 102, Carbon Dioxide 23.4, Anion Gap 13, BUN 4, Creatinine 0.82, Estim Creat Clear Calc 107.02, Est GFR (MDRD) Non-Af 98, BUN/Creatinine Ratio 4.6 L, Glucose 93, Lactic Acid 2.5 H*, Calcium 9.4, Total Bilirubin 0.94, AST 26, ALT 32, Alkaline Phosphatase 114 H, Troponin T High Sens 6, Total Protein 7.9, Albumin 4.3, Globulin 3.6, Albumin/Globulin Ratio 1.2 02/16/25 17:00: Urine Color Straw, Urine Clarity Clear, Urine pH 6.0, Ur Specific [place] 1.005, Urine Protein Negative, Urine Glucose (UA) Normal, Urine Ketones Negative, Urine Occult Blood 10 H, Urine Nitrite Negative, Urine Bilirubin Negative, Urine Urobilinogen Normal, Ur Leukocyte Esterase 25 H, Urine RBC 0-5 SEEN, Urine WBC 0-5 SEEN, Ur Squamous Epith Cells 0-5 SEEN, Urine Bacteria 0 SEEN, Urine Mucus 0 SEEN Assessment & Plan Assessment/Plan (1) Nausea, vomiting and diarrhea: PLAN: Plan # Nausea/vomiting/diarrhea -Over the past several days -Possibly due to patient's noncompliance with her home medications, she reports this does happen when she misses her medications -Continue stress dose steroids, will also add fludrocortisone at this time -Monitor intake and output -Presently vitally stable and CBC and BMP unremarkable with no significant electrolyte abnormalities -IV fluids -Given patient's nausea and vomiting will start on clear liquid diet and advance as she tolerates -Supportive care -Will check stool studies in the event there is a GI component though less likely -Abdomen soft with no rebound, guarding, rigidity, do not see acute need for imaging at this time, if symptoms worsen or do not improve can consider abdominal imaging # History of Center Line's disease -Patient has not taken her Decadron as she did not pick it up -Stress dose steroids as above, fludrocortisone #Depression/anxiety -Continue home medications #GERD -Continue PPI #?Diabetes -Glucose checks and sliding scale insulin -Pt on Jardiance outpt, will place on glucose checks and SSI for closer monitoring of glucose especially with decreased PO d/t n/v -Check AM A1c # Nonfocal stress-induced seizures - Patient reports she does not follow with a neurologist and was diagnosed with nonfocal stress-induced seizures before for which she takes 25 mg of Topamax nightly (though indication is listed as migraine) - 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 #DVT ppx: SCDs Mary Wang MD Charges/Coding Visit Charges Inpatient E&M: 76979 Init Hosp L2
--- NOTE | 2025-02-16 19:15 | ED.RN ---
pt med list unable to cpmlete d/t dr. pryor being in chart
[2025-02-16 19:22] LABS: Troponin T High Sens 2 HR < 6 ng/L (<=14)
[2025-02-16 20:52] LABS: Reflex Lactate? Y
[2025-02-16] MEDS: 0.9% Normal Saline (1000mL) 1,000 ML 100 ML IV (21:08)
[2025-02-16] MEDS: LURASIDONE HCL 40 MG TABLET 60 MG PO (21:31)
[2025-02-16] MEDS: Atorvastatin Calcium 10 MG Tablet PO (21:31)
[2025-02-16] MEDS: CLOMIPRAMINE HCL 25 MG 100 MG PO (21:31)
[2025-02-16] MEDS: Fludrocortisone Acetate 0.1 MG Tablet 0.05 MG PO (21:32)
[2025-02-16] MEDS: Topiramate 25 MG Tablet PO (21:32)
[2025-02-16] MEDS: 0.9% Saline Lock 10 ML Syringe IV (21:35)
[2025-02-16 21:42] LABS: Troponin T High Sens 4 HR < 6 ng/L (<=14)
[2025-02-16 21:45] LABS: Lactic Acid 1.9 mmol/L (0.0-2.0)
[2025-02-16] MEDS: LORazepam 2 MG/ML Syringe IV (22:32)
[2025-02-16] MEDS: Ondansetron 4 MG/2 ML Vial IV (22:33)
--- NOTE | 2025-02-16 22:41 | CASEMGMT ---
Social Work: bushel worker responded to Rapid Response Team call; no family/visitors present. bushel worker stood near bedside of patient while patient received medical care. Charleen Kemp CNA CAREGIVER, BUTTON DECORATING MACHINE OPERATOR
[2025-02-16 22:42] LABS: Allen Test Positive; Base Excess -9 mmol/L (-2 to +2); Bicarbonate 14.9 mmol/L (22-26); Blood Gas Specimen Type ART; Mode Not entered; O2 Delivery Device Cannula; PO2 120 mmHG (75-100); SITE L Radial; SO2 99 % (95-99); Total Carbon Dioxide 16 mmol/L; pCO2 21.4 mmHg (35-45); pH 7.45 (7.35-7.45)
--- NOTE | 2025-02-16 22:47 | NURSING ---
pt was heard breathing heavily financial operations analyst light, another RN came to the room to check on pt. Pt started seizing and became unresponsive, was place to her left side for safety. Staff assist was called, additional staffs came to the room. Rapid response called, see documentation.
--- NOTE | 2025-02-16 22:59 | PN.HOSP_ITS ---
Hospitalist Note Rapid response was called at approximately 22:10 hours with patient having witnessed pseudoseizure likely triggered by worsening nausea, anxiety and malaise. She was treated supportively and then given IV lorazepam 2 mg once with complete resolution of her neurologic symptoms. She then was treated with IV ondansetron followed by IM promethazine with improvement in her nausea. Her blood glucose was 154 mg/dL and her vital signs are now normal with appropriate mentation. ABG was unremarkable. EKG showed no signs of STEMI. Patient was pl aced on telemetric monitoring with IV lorazepam ordered as needed for recurrence. Med-trauma surgeon updated with plan.
[2025-02-16] MEDS: proMETHazine 25 MG/ML Syringe IM (23:04)
[2025-02-16 23:18] LABS: Bedside Glucose 130 mg/dL (74-106)
[2025-02-16 23:18] LABS: Bedside Glucose 144 mg/dL (74-106)
[2025-02-16] MEDS: Hydrocortisone Sod Succinate 100 MG/2 ML Vial 50 MG IV (23:44)
[2025-02-17] VITALS (7 sets, daily range): BP systolic 94–124; BP diastolic 54–81; PULSE 61–120; RESP 15–16; TEMP 36.5–36.6; O2SAT 97–100
--- NOTE | 2025-02-17 00:21 | EKG12_ITS ---
Test Reason : Seizure Blood Pressure : */* mmHG Vent. Rate : 98 BPM Atrial Rate : 98 BPM P-R Int : 182 ms QRS Dur : 94 ms QT Int : 380 ms P-R-T Axes : 25 16 176 degrees QTcB Int : 485 ms Normal sinus rhythm ST & T wave abnormality, consider anterolateral ischemia Abnormal ECG When compared with ECG of 16-Feb-2025 16:48, MANUAL COMPARISON REQUIRED DATA IS UNCONFIRMED Confirmed by JAELYN PRO, ELEUTERIO ([id number]), senior technical editor SOILA SORIANO ([id number]) on 02/20/2025 1:37:09 PM Referred By: Agustín Noriega Confirmed By: ELEUTERIO CHRISTY MD
[2025-02-17] MEDS: Levothyroxine 125 MCG Tablet PO (06:17)
[2025-02-17] MEDS: 0.9% Normal Saline (1000mL) 1,000 ML 100 ML IV ×2 (06:17→16:17)
[2025-02-17] MEDS: Hydrocortisone Sod Succinate 100 MG/2 ML Vial 50 MG IV ×3 (06:17→17:35)
[2025-02-17] MEDS: Ondansetron 4 MG/2 ML Vial IV (06:24)
[2025-02-17 06:48] LABS: Bedside Glucose 122 mg/dL (74-106)
[2025-02-17 07:09] LABS: Absolute Lymphocyte Count 1.68 X10^3/uL (0.83-4.51); Absolute Neutrophil Count 6.1 X10^3/uL (2.0-7.7); Basophil# 0.01 X10^3/uL; Basophil% 0.1 % (0-1); Hematocrit 36.2 % (37-47); Hemoglobin 11.5 g/dL (12.0-15.0); Lymphocyte # 1.68 X10^3/ul (0.83-4.51); Lymphocyte % 20.5 % (19-41); Mean Corp Hgb Conc 31.8 g/dL (32-36); Mean Corpuscular Hgb 24.7 pg (27.0-32.0); Mean Corpuscular Volume 77.8 fL (81-99); Monocyte# 0.41 X10^3/uL; NRBC Flagged by Analyzer 0 % (0-5); Neutrophil # 6.08 X10^3/uL (2.7-7.7); Platelet Count 368 K/mm3 (150-450); RBC Distribution Width CV 16.8 % (11.6-14.6); RBC Distribution Width SD 47.5 fl (35.1-43.9); Red Blood Count 4.65 M/mm3 (4.2-5.4); White Blood Count 8.2 K/mm3 (4.4-11.0)
[2025-02-17 08:03] LABS: ALB/GLOB Ratio 1.2 RATIO (0.9-2.4); AST(SGOT) 23 U/L (<=31); Alanine Aminotransfer ALT/SGPT 28 U/L (<=34); Albumin, Serum 3.9 g/dL (3.5-5.0); Alkaline Phosphatase 101 U/L (35-104); Anion Gap 10 (5-15); BUN 3 mg/dL (4-19); BUN/Creat Ratio 4.7 RATIO (10-20); Calcium,Total 8.9 mg/dL (7.6-11.0); Carbon Dioxide 24.9 mmol/L (21.0-32.0); Chloride 106 mmol/L (98-108); Creatinine, Serum 0.67 mg/dL (0.70-1.20); EST Glomerular Filtration Rate 120 (>60); Estimated Creatinine Clearance 130.15 ml/min (50-250); Globulin 3.3 g/dL (2.2-4.2); Glucose 115 mg/dL (70-99); Magnesium 1.9 mg/dL (1.5-2.2); Potassium 3.8 mmol/L (3.3-5.1); Protein, Total 7.2 g/dL (5.9-8.4); Sodium Level 141 mmol/L (133-145); Total Bilirubin 0.91 mg/dL (0.00-1.30)
[2025-02-17 08:16] LABS: Hemoglobin A1c 5.8 % (<=5.6)
[2025-02-17] MEDS: lamoTRIgine 100 MG Tablet PO (10:54)
[2025-02-17] MEDS: CLOMIPRAMINE HCL 25 MG 100 MG PO ×2 (10:55→22:45)
[2025-02-17] MEDS: Fludrocortisone Acetate 0.1 MG Tablet 0.05 MG PO (10:55)
[2025-02-17] MEDS: Pantoprazole Sodium 40 MG Tablet PO (10:55)
--- NOTE | 2025-02-17 11:08 | PCM.PN.HOSP ---
Reason for Visit Reason for Visit: Diagnoses Nausea with vomiting, unspecified (02/16/25) Diarrhea, unspecified (02/16/25) Subjective Subjective Saw patient at bedside this morning. Patient was laying in bed and appeared mildly uncomfortable due to ongoing nausea with abdominal pain. Noted that she continues to have lightheadedness and dizziness with sitting up in bed. Does not have an appetite at this time. Notes that with past admissions like this it has taken a few days for her to start to feel better. She denies any other new concerns this morning. Objective Data Objective Data Vital Signs: Vital Signs Temp Pulse Resp BP Pulse Ox O2 Del Method O2 Flow Rate 97.7 F L 76 16 96/54 L 99 Nasal Cannula 2 02/17/25 08:07 02/17/25 10:44 02/17/25 08:07 02/17/25 10:44 02/17/25 08:07 02/17/25 08:07 02/17/25 08:07 Oxygen Flow Rate (L/min) 2 Oxygen Delivery Method Nasal Cannula Weight: 83.915 kg Body Mass Index (BMI) 30.7 Intake & Output: Intake and Output for Last 24 Hours 02/15/25 02/16/25 02/17/25 23:59 23:59 23:59 Intake Total 1000 / 1000 915 / 915 Output Total 450 / 450 Balance 1000 / 1000 465 / 465 Lab / Micro Data 02/17/25 06:20 02/17/25 06:20 Labs: Laboratory Results - last 24 hr 02/16/25 16:41: WBC 7.1, RBC 4.91, Hgb 12.1, Hct 38.2, MCV 77.8 L, MCH 24.6 L, MCHC 31.7 L, RDW Std Deviation 47.2 H, RDW Coeff of Renetta 16.7 H, Plt Count 347, MPV 9.8, Immature Gran % (Auto) 0.400, Neut % (Auto) 46.3 L, Lymph % (Auto) 41.9 H, [place] % (Auto) 9.3, Eos % (Auto) 1.7, Baso % (Auto) 0.4, Absolute Neuts (auto) 3.3, Absolute Lymphs (auto) 2.97, Nucleated RBC % 0, Sodium 138, Potassium 3.4, Chloride 102, Carbon Dioxide 23.4, Anion Gap 13, BUN 4, Creatinine 0.82, Estim Creat Clear Calc 107.02, Est GFR (MDRD) Non-Af 98, BUN/Creatinine Ratio 4.6 L, Glucose 93, Lactic Acid 2.5 H*, Calcium 9.4, Total Bilirubin 0.94, AST 26, ALT 32, Alkaline Phosphatase 114 H, Troponin T High Sens 6, Total Protein 7.9, Albumin 4.3, Globulin 3.6, Albumin/Globulin Ratio 1.2 02/16/25 17:00: Urine Color Straw, Urine Clarity Clear, Urine pH 6.0, Ur Specific [place] 1.005, Urine Protein Negative, Urine Glucose (UA) Normal, Urine Ketones Negative, Urine Occult Blood 10 H, Urine Nitrite Negative, Urine Bilirubin Negative, Urine Urobilinogen Normal, Ur Leukocyte Esterase 25 H, Urine RBC 0-5 SEEN, Urine WBC 0-5 SEEN, Ur Squamous Epith Cells 0-5 SEEN, Urine Bacteria 0 SEEN, Urine Mucus 0 SEEN 02/16/25 19:00: Troponin T Hi Sens 2 Hr < 6 02/16/25 21:10: Lactic Acid 1.9, Troponin T Hi Sens 4Hr < 6 02/16/25 21:20: POC Glucose 144 H 02/16/25 22:24: POC Glucose 130 H 02/17/25 06:20: WBC 8.2, RBC 4.65, Hgb 11.5 L, Hct 36.2 L, MCV 77.8 L, MCH 24.7 L, MCHC 31.8 L, RDW Std Deviation 47.5 H, RDW Coeff of Renetta 16.8 H, Plt Count 368, MPV 10.0, Immature Gran % (Auto) 0.400, Neut % (Auto) 74.0 H, Lymph % (Auto) 20.5, [place] % (Auto) 5.0, Eos % (Auto) 0.0, Baso % (Auto) 0.1, Absolute Neuts (auto) 6.1, Absolute Lymphs (auto) 1.68, Nucleated RBC % 0, Sodium 141, Potassium 3.8, Chloride 106, Carbon Dioxide 24.9, Anion Gap 10, BUN 3 L, Creatinine 0.67 L, Estim Creat Clear Calc 130.15, Est GFR (MDRD) Non-Af 120, BUN/Creatinine Ratio 4.7 L, Glucose 115 H, Hemoglobin A1c 5.8 H, Calcium 8.9, Magnesium 1.9, Total Bilirubin 0.91, AST 23, ALT 28, Alkaline Phosphatase 101, Total Protein 7.2, Albumin 3.9, Globulin 3.3, Albumin/Globulin Ratio 1.2, TSH 10.200 H 02/17/25 06:22: POC Glucose 122 H ABG Data ABG results: ABG 02/16/25 22:37 Specimen Type ART Sample Site L Radial pH 7.45 Bicarbonate Actual 14.9 L Total CO2 16 Base Excess -9 L O2 Saturation 99 O2 % 2.0 ABG pCO2 21.4 L ABG pO2 120 H Juan Jose Test Positive O2 Delivery Device Cannula Vent Mode Not entered Physical Exam Const alert and oriented x3 Constitutional Narrative: Younger female, class I obesity, mildly fatigued appearing, mildly uncomfortable appearing due to ongoing nausea and abdominal discomfort, otherwise conversing normally. General Appearance: cooperative HEENT normocephalic, head/scalp atraumatic, hearing grossly normal bilaterally, nasal mucous membranes and turbinates normal and moist oral mucous membranes Eyes PERRL, EOMs intact bilaterally and conjunctivae normal Neck full ROM Chest inspection of chest normal Resp normal respiratory effort, normal air movement, no use of accessory muscles and clear to auscultation bilaterally Cardio regular rate, regular rhythm, no murmurs and peripheral pulses 2+ throughout GI GI Narrative: Abdomen mildly tender to palpation diffusely but otherwise soft and nondistended. Back/Spine normal ROM Extremity normal to inspection, full ROM and no pedal edema Skin no rashes or lesions noted Psych mental status grossly normal Mood & Affect: anxious Assessment & Plan Assessment/Plan (1) Nausea, vomiting and diarrhea: (2) Orthostatic hypotension: PLAN: Plan Patient is a 29-year-old female who presented to [facility] ED on 02/16/2025 with nausea/vomiting and lightheadedness. 1. 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 Presented with nausea/vomiting/diarrhea, abdominal discomfort and orthostatic lightheadedness and had not taken home Decadron in a few weeks as she had run out. Giving 3 L of IV fluids total through morning of 02/18. Continue IV stress dose steroids and p.o. fludrocortisone. Continue clear liquid diet and advance as tolerated. No electrolyte abnormalities but will continue to monitor BMP daily. 2. 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 Is on home Topamax and Lamictal, though she reports recent nonadherence to these medications as she ran out. Apparently does not follow with neurology. Topamax notably is listed as being prescribed for migraines. Had episode on the evening of admission concerning for seizure versus pseudoseizure. Will continue home Topamax and Lamictal at this time. 3. Depression/anxiety ? Continue home clomipramine, lurasidone and alprazolam as needed. Chronic medical conditions: ? Class I obesity: BMI 30 on admit. Is on Mounjaro weekly as noted below. Encouraged weight loss. ? Reported type 2 diabetes mellitus: A1c 5.8% on admit. Hold home empagliflozin and Mounjaro. Continue treatment with sliding scale insulin as needed. ? Hypothyroidism: Continue home Synthroid. ? Hyperlipidemia: Continue home statin. ? GERD: Continue home PPI. ? History of endometriosis s/p hysterectomy with bilateral salpingo-oophorectomy. DVT prophylaxis: Lovenox CODE STATUS: Full code, verified Expected disposition: Home, 2 to 3 days Total clinical time spent by myself addressing the patient's medical issues, reviewing all the data, and collaborating with patient's care team: 35 minutes. Charges/Coding Visit Charges Inpatient E&M: 42560 Subs Hosp L2
--- NOTE | 2025-02-17 11:36 | CASEMGMT ---
SKIP ZELAYA Assessment Face to Face with patient for initial transition planning/care coordination assessment. SKIP ZELAYA introduced self and role at [facility], pt voices understanding. Pt is A&Ox4 and is resting comfortably in bed and is calm. Care providers, pharmacy, and demographics verified. Admitting dx: Dehydration, N/V LACE Strata: 3 PCP: [facility] Specialists: Shannen ([facility] Endo), Maximino (Neurology), Trina ([facility] Psychiatry) Preferred Pharmacy: [facility] Insurance: [employer] Prescription Benefit: Yes LNOK: Chidi Avendaño (H), Sofia Alfonso (Mother) Living Arrangements: Pt lives with her and 2 children (Ages 6 & 10) in a 2 story home with 2 steps to enter ADLs/IADLs: Pt states that she is independent Transportation: Self, DME: Functioning CBGM with 1 sensor left. Pt states that she has an active Rx for this to get refilled. Pt states that she also has a backup BGM with sufficient supplies. Pt also reports that she has a shower chair, cane, FWW, Nebulizer, and BP Machine HHC/SNF: Reports HH history x 2 years ago through . Denies SNF hx or needs Medication Compliancy: Per H&P, pt was not taking her medications x 1-2 weeks prior to arrival. Pt states that she,Just did not get them. Pt states that affordability was not the issue and then stated again that she just did not get them. Pt states that she does have them now and plans to resume taking them after DC. Pt?s goal: Home Plan: Home with family, anticipate no additional needs. Pt denies the need for any form of HH or OP therapy. Pt states that she feels safe returning home with her family once she is medically ready and denies further questions or concerns at this time. Report given to MS3 SKIP ZELAYA. Raj Tavarez
[2025-02-17 11:45] LABS: Bedside Glucose 114 mg/dL (74-106)
[2025-02-17] MEDS: HYDROmorphone 0.5 MG/0.5 ML SYRINGE IV ×2 (13:47→19:55)
[2025-02-17 17:00] LABS: Bedside Glucose 108 mg/dL (74-106)
[2025-02-17] MEDS: Senna/Docusate Sodium 1 Tablet PO (21:53)
[2025-02-17] MEDS: ALPRAZolam 0.5 MG Tablet PO (21:53)
[2025-02-17] MEDS: Topiramate 25 MG Tablet PO (21:53)
[2025-02-17] MEDS: Atorvastatin Calcium 10 MG Tablet PO (21:53)
[2025-02-17] MEDS: LURASIDONE HCL 40 MG TABLET 60 MG PO (22:46)
[2025-02-18] VITALS (11 sets, daily range): BP systolic 97–113; BP diastolic 63–80; PULSE 61–86; RESP 15–18; TEMP 36.2–36.8; O2SAT 95–99
[2025-02-18] MEDS: Hydrocortisone Sod Succinate 100 MG/2 ML Vial 50 MG IV ×4 (00:21→18:10)
[2025-02-18] MEDS: HYDROmorphone 0.5 MG/0.5 ML SYRINGE IV ×2 (02:25→06:28)
[2025-02-18] MEDS: 0.9% Saline Lock 10 ML Syringe IV ×4 (06:06→18:10)
[2025-02-18] MEDS: Levothyroxine 125 MCG Tablet PO (06:06)
[2025-02-18 07:25] LABS: Bedside Glucose 113 mg/dL (74-106)
[2025-02-18] MEDS: Fludrocortisone Acetate 0.1 MG Tablet 0.05 MG PO (09:55)
[2025-02-18] MEDS: CLOMIPRAMINE HCL 25 MG 100 MG PO ×2 (09:55→21:11)
[2025-02-18] MEDS: Enoxaparin 40 MG/0.4 ML Syringe SC (09:55)
[2025-02-18] MEDS: Senna/Docusate Sodium 1 Tablet PO ×2 (09:57→21:12)
[2025-02-18] MEDS: HYDROmorphone 2 MG TABLET PO ×3 (10:06→21:09)
[2025-02-18] MEDS: Pantoprazole Sodium 40 MG Tablet PO (10:07)
[2025-02-18] MEDS: lamoTRIgine 100 MG Tablet PO (10:07)
--- NOTE | 2025-02-18 10:38 | PCM.PN.HOSP ---
Reason for Visit Reason for Visit: Diagnoses Orthostatic hypotension (02/16/25) Nausea with vomiting, unspecified (02/16/25) Diarrhea, unspecified (02/16/25) Subjective Subjective Saw patient at bedside this morning. Patient appeared similar this morning to yesterday, was laying comfortably in bed but continued to appear fatigued. Patient stated that she did feel slightly better this morning compared yesterday. She was able to get down apple juice and a cup of Jell-O without issue this morning. Notes that her abdominal pain feels somewhat improved. Denies any other new concerns today. Objective Data Objective Data Vital Signs: Vital Signs Temp Pulse Resp BP Pulse Ox O2 Del Method O2 Flow Rate 98.3 F 63 18 110/80 98 Room Air 2 02/18/25 08:00 02/18/25 08:00 02/18/25 10:00 02/18/25 08:00 02/18/25 08:00 02/18/25 10:00 02/17/25 21:09 Oxygen Flow Rate (L/min) 2 Oxygen Delivery Method Room Air Weight: 83.915 kg Body Mass Index (BMI) 30.7 Intake & Output: Intake and Output for Last 24 Hours 02/16/25 02/17/25 02/18/25 23:59 23:59 23:59 Intake Total 1000 / 1000 1915 / 1915 1100 / 1100 Output Total 1650 / 1650 Balance 1000 / 1000 265 / 265 1100 / 1100 Lab / Micro Data 02/17/25 06:20 02/17/25 06:20 Labs: Laboratory Results - last 24 hr 02/17/25 11:23: POC Glucose 114 H 02/17/25 16:39: POC Glucose 108 H 02/18/25 06:10: POC Glucose 113 H Physical Exam Const alert and oriented x3 Constitutional Narrative: Younger female, class I obesity, fatigued appearing but otherwise appears comfortable laying in bed and is conversing normally. General Appearance: cooperative HEENT normocephalic, head/scalp atraumatic, hearing grossly normal bilaterally, nasal mucous membranes and turbinates normal and moist oral mucous membranes Eyes PERRL, EOMs intact bilaterally and conjunctivae normal Neck full ROM Chest inspection of chest normal Resp normal respiratory effort, normal air movement, no use of accessory muscles and clear to auscultation bilaterally Cardio regular rate, regular rhythm, no murmurs and peripheral pulses 2+ throughout GI GI Narrative: Abdomen mildly tender to palpation diffusely but otherwise soft and nondistended. Stable. Back/Spine normal ROM Extremity normal to inspection, full ROM and no pedal edema Skin no rashes or lesions noted Psych mental status grossly normal Mood & Affect: anxious Assessment & Plan Assessment/Plan (1) Nausea, vomiting and diarrhea: (2) Orthostatic hypotension: PLAN: Plan Patient is a 29-year-old female who presented to [facility] ED on 02/16/2025 with nausea/vomiting and lightheadedness. 1. 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 Presented with nausea/vomiting/diarrhea, abdominal discomfort and orthostatic lightheadedness and had not taken home Decadron in a few weeks as she had run out. Given 3 L of IV fluids total through morning of 02/18. Mild to moderate improvement noted to this point. Orthostatic vital signs on morning of 02/18 much improved from admission. Continue IV stress dose steroids and p.o. fludrocortisone for now; hopeful to transition to only p.o. steroids tomorrow. Continue clear liquid diet and advance as tolerated. No electrolyte abnormalities but will continue to monitor BMP daily. 2. 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 Is on home Topamax and Lamictal, though she reports recent nonadherence to these medications as she ran out. Apparently does not follow with neurology. Topamax notably is listed as being prescribed for migraines. Had episode on the evening of admission concerning for seizure versus pseudoseizure, no further episodes since then. Continue home Topamax and Lamictal at this time. 3. Depression/anxiety ? Continue home clomipramine, lurasidone and alprazolam as needed. Chronic medical conditions: ? Class I obesity: BMI 30 on admit. Is on Mounjaro weekly as noted below. Encouraged weight loss. ? Reported type 2 diabetes mellitus: A1c 5.8% on admit. Hold home empagliflozin and Mounjaro. Continue treatment with sliding scale insulin as needed. ? Hypothyroidism: Continue home Synthroid. ? Hyperlipidemia: Continue home statin. ? GERD: Continue home PPI. ? History of endometriosis s/p hysterectomy with bilateral salpingo-oophorectomy DVT prophylaxis: Lovenox CODE STATUS: Full code, verified Expected disposition: Home, 2 to 3 days Total clinical time spent by myself addressing the patient's medical issues, reviewing all the data, and collaborating with patient's care team: 35 minutes. Charges/Coding Visit Charges Inpatient E&M: 25643 Subs Hosp L2
[2025-02-18 13:48] LABS: Bedside Glucose 99 mg/dL (74-106)
[2025-02-18] MEDS: ALPRAZolam 0.5 MG Tablet PO ×2 (14:43→21:27)
[2025-02-18 17:08] LABS: Bedside Glucose 117 mg/dL (74-106)
[2025-02-18] MEDS: Atorvastatin Calcium 10 MG Tablet PO (21:12)
[2025-02-18] MEDS: LURASIDONE HCL 40 MG TABLET 60 MG PO (21:13)
[2025-02-18] MEDS: Topiramate 25 MG Tablet PO (21:27)
[2025-02-19] VITALS (7 sets, daily range): BP systolic 113–132; BP diastolic 68–83; PULSE 46–82; RESP 16–18; TEMP 36.4–36.6; O2SAT 96–100
[2025-02-19] MEDS: Hydrocortisone Sod Succinate 100 MG/2 ML Vial 50 MG IV ×2 (00:25→06:31)
[2025-02-19] MEDS: HYDROmorphone 2 MG TABLET PO ×4 (04:19→22:43)
[2025-02-19] MEDS: Levothyroxine 125 MCG Tablet PO (04:20)
[2025-02-19 06:51] LABS: Bedside Glucose 110 mg/dL (74-106)
[2025-02-19 07:49] LABS: Hematocrit 33.4 % (37-47); Hemoglobin 10.7 g/dL (12.0-15.0); Mean Corpuscular Hgb 24.9 pg (27.0-32.0); Mean Corpuscular Volume 77.9 fL (81-99); Platelet Count 355 K/mm3 (150-450); RBC Distribution Width CV 17.1 % (11.6-14.6); RBC Distribution Width SD 48.3 fl (35.1-43.9); Red Blood Count 4.29 M/mm3 (4.2-5.4); White Blood Count 9.7 K/mm3 (4.4-11.0)
[2025-02-19 08:18] LABS: Anion Gap 11 (5-15); BUN 7 mg/dL (4-19); BUN/Creat Ratio 8.2 RATIO (10-20); Calcium,Total 8.9 mg/dL (7.6-11.0); Carbon Dioxide 24.8 mmol/L (21.0-32.0); Chloride 106 mmol/L (98-108); EST Glomerular Filtration Rate 102 (>60); Glucose 104 mg/dL (70-99); Potassium 3.2 mmol/L (3.3-5.1); Sodium Level 141 mmol/L (133-145)
[2025-02-19] MEDS: Enoxaparin 40 MG/0.4 ML Syringe SC (08:57)
[2025-02-19] MEDS: lamoTRIgine 100 MG Tablet PO (08:57)
[2025-02-19] MEDS: CLOMIPRAMINE HCL 25 MG 100 MG PO ×2 (08:58→21:17)
[2025-02-19] MEDS: Pantoprazole Sodium 40 MG Tablet PO (08:59)
[2025-02-19] MEDS: Senna/Docusate Sodium 1 Tablet PO ×2 (08:59→21:16)
[2025-02-19] MEDS: ALPRAZolam 0.5 MG Tablet PO ×2 (09:04→18:49)
[2025-02-19] MEDS: dexAMETHasone 4 MG Tablet 6 MG PO (09:05)
--- NOTE | 2025-02-19 11:26 | PCM.PN.HOSP ---
Reason for Visit Reason for Visit: Diagnoses Orthostatic hypotension (02/16/25) Nausea with vomiting, unspecified (02/16/25) Diarrhea, unspecified (02/16/25) Subjective Subjective Saw patient at bedside this morning. Patient continues to have mild to moderate improvement in her energy level and abdominal pain. Was able to tolerate a small breakfast with regular diet this morning. Is okay with transitioning to p.o. steroids with potential plan to go home tomorrow if she continues to improve. No other new concerns today. Objective Data Objective Data Vital Signs: Vital Signs Temp Pulse Resp BP Pulse Ox O2 Del Method O2 Flow Rate 97.8 F 60 16 129/83 H 97 Room Air 2 02/19/25 09:10 02/19/25 09:12 02/19/25 09:10 02/19/25 09:10 02/19/25 09:10 02/19/25 09:10 02/17/25 21:09 Oxygen Flow Rate (L/min) 2 Oxygen Delivery Method Room Air Weight: 83.915 kg Body Mass Index (BMI) 30.7 Intake & Output: Intake and Output for Last 24 Hours 02/17/25 02/18/25 02/19/25 23:59 23:59 23:59 Intake Total 1915 / 1915 1650 / 1650 Output Total 1650 / 1650 Balance 265 / 265 1650 / 1650 Lab / Micro Data 02/19/25 07:20 02/19/25 07:20 Labs: Laboratory Results - last 24 hr 02/18/25 11:22: POC Glucose 99 02/18/25 16:50: POC Glucose 117 H 02/19/25 06:29: POC Glucose 110 H 02/19/25 07:20: WBC 9.7, RBC 4.29, Hgb 10.7 L, Hct 33.4 L, MCV 77.9 L, MCH 24.9 L, MCHC 32.0, RDW Std Deviation 48.3 H, RDW Coeff of Renetta 17.1 H, Plt Count 355, MPV 10.0, Sodium 141, Potassium 3.2 L, Chloride 106, Carbon Dioxide 24.8, Anion Gap 11, BUN 7, Creatinine 0.80, Estim Creat Clear Calc 109.00, Est GFR (MDRD) Non-Af 102, BUN/Creatinine Ratio 8.2 L, Glucose 104 H, Calcium 8.9 Physical Exam Const alert and oriented x3 Constitutional Narrative: Younger female, class I obesity, mildly fatigued appearing but improving, otherwise appears comfortable laying in bed and is conversing normally. General Appearance: cooperative HEENT normocephalic, head/scalp atraumatic, hearing grossly normal bilaterally, nasal mucous membranes and turbinates normal and moist oral mucous membranes Eyes PERRL, EOMs intact bilaterally and conjunctivae normal Neck full ROM Chest inspection of chest normal Resp normal respiratory effort, normal air movement, no use of accessory muscles and clear to auscultation bilaterally Cardio regular rate, regular rhythm, no murmurs and peripheral pulses 2+ throughout GI GI Narrative: Abdomen soft, nondistended and now nontender to palpation. Improved from admission. Back/Spine normal ROM Extremity normal to inspection, full ROM and no pedal edema Skin no rashes or lesions noted Psych mental status grossly normal Mood & Affect: anxious Assessment & Plan Assessment/Plan (1) Nausea, vomiting and diarrhea: (2) Orthostatic hypotension: PLAN: Plan Patient is a 29-year-old female who presented to [facility] ED on 02/16/2025 with nausea/vomiting and lightheadedness. 1. Suspected adrenal crisis in setting of [place]'s disease ? Presented with nausea/vomiting/diarrhea, abdominal discomfort and orthostatic lightheadedness and had not taken home Decadron in a few weeks as she had run out. Given 3 L of IV fluids total through morning of 02/18. Moderate improvement noted to this point. Orthostatic vital signs on morning of 02/18 much improved from admission. Transitioned from IV stress to steroids and p.o. fludrocortisone to p.o. Decadron on 02/19. Advanced to regular diet on 02/19 and patient tolerating without issue. If patient continues to improve tomorrow, will plan for discharge home on Decadron taper. 2. 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 Is on home Topamax and Lamictal, though she reports recent nonadherence to these medications as she ran out. Apparently does not follow with neurology. Topamax notably is listed as being prescribed for migraines. Had episode on the evening of admission concerning for seizure versus pseudoseizure, no further episodes since then. Continue home Topamax and Lamictal at this time. 3. Depression/anxiety ? Continue home clomipramine, lurasidone and alprazolam as needed. Chronic medical conditions: ? Class I obesity: BMI 30 on admit. Is on Mounjaro weekly as noted below. Encouraged weight loss. ? Reported type 2 diabetes mellitus: A1c 5.8% on admit. Hold home empagliflozin and Mounjaro. Continue treatment with sliding scale insulin as needed. ? Hypothyroidism: Continue home Synthroid. ? Hyperlipidemia: Continue home statin. ? GERD: Continue home PPI. ? History of endometriosis s/p hysterectomy with bilateral salpingo-oophorectomy DVT prophylaxis: Lovenox CODE STATUS: Full code, verified Expected disposition: Home, 1 to 2 days Total clinical time spent by myself addressing the patient's medical issues, reviewing all the data, and collaborating with patient's care team: 35 minutes. Charges/Coding Visit Charges Inpatient E&M: 01750 Subs Hosp L2
[2025-02-19 11:47] LABS: Bedside Glucose 137 mg/dL (74-106)
[2025-02-19 16:16] LABS: Bedside Glucose 134 mg/dL (74-106)
[2025-02-19] MEDS: Topiramate 25 MG Tablet PO (21:16)
[2025-02-19] MEDS: LURASIDONE HCL 40 MG TABLET 60 MG PO (21:17)
[2025-02-19] MEDS: Atorvastatin Calcium 10 MG Tablet PO (21:18)
[2025-02-20 04:00] VITALS: BP 133/91; PULSE 46; RESP 16; TEMP 36.4; O2SAT 97
[2025-02-20] MEDS: Levothyroxine 125 MCG Tablet PO (05:25)
[2025-02-20] MEDS: HYDROmorphone 2 MG TABLET PO ×2 (05:48→12:17)
[2025-02-20 07:15] VITALS: O2SAT 98
[2025-02-20 08:27] LABS: Bedside Glucose 90 mg/dL (74-106)
[2025-02-20 09:40] VITALS: BP 99/65; PULSE 69; RESP 18; TEMP 36.4; O2SAT 99
[2025-02-20] MEDS: CLOMIPRAMINE HCL 25 MG 100 MG PO (09:46)
[2025-02-20] MEDS: lamoTRIgine 100 MG Tablet PO (09:46)
[2025-02-20] MEDS: Potassium Chloride Oral Tablet 20 MEQ 40 MEQ PO (09:46)
[2025-02-20] MEDS: Senna/Docusate Sodium 1 Tablet PO (09:47)
[2025-02-20] MEDS: Pantoprazole Sodium 40 MG Tablet PO (09:47)
[2025-02-20] MEDS: Enoxaparin 40 MG/0.4 ML Syringe SC (09:47)
[2025-02-20] MEDS: dexAMETHasone 4 MG Tablet 6 MG PO (09:49)
--- NOTE | 2025-02-20 10:23 | DS.PCM_ITS ---
Providers Date of Admission: 02/16/25 Date of Discharge: 02/20/25 Primary Care Physician: Dr. Kevin Stauffer MD Reason For Visit: DEHYDRATION, NAUSEA, VOMITING Diagnosis Discharge Diagnosis (1) Abdominal pain: Status: Inactive Code(s): R10.9 - Unspecified abdominal pain (2) Acute adrenal insufficiency: Status: Acute Code(s): E27.40 - Unspecified adrenocortical insufficiency (3) Epigastric pain: Status: Acute Code(s): R10.13 - Epigastric pain Medications at Discharge Home Medications albuterol sulfate 90 mcg/actuation aerosol inhaler (Ventolin HFA) 2 inh inhalation Q4H PRN sob 08/09/22 eletriptan 40 mg tablet 40 mg PO DAILY migraines 08/09/22 tizanidine 4 mg tablet 4 mg PO Q8H PRN Spasms 08/09/22 ondansetron 4 mg disintegrating tablet 8 mg (2 x 4 mg) PO Q8H PRN PRN Nausea #20 tabs 11/03/22 pantoprazole 40 mg tablet,delayed release 40 mg PO DAILY see pcp 02/23/23 promethazine 25 mg tablet 25 mg PO Q6H PRN PRN Nausea 02/23/23 atorvastatin 10 mg tablet 10 mg PO DAILY hyperlipidemia 07/24/23 clomipramine 50 mg capsule 100 mg PO BID see pcp 07/24/23 levothyroxine 125 mcg tablet 125 mcg PO DAILY see pcp 07/24/23 naloxone 4 mg/actuation nasal spray 1 spray intranasal PRN PRN OVERDOSE 07/24/23 alprazolam 0.5 mg tablet 0.5 mg PO TID PRN PRN anxiety 02/16/25 empagliflozin 10 mg tablet (Jardiance) 10 mg PO DAILY see pcp 02/16/25 erenumab-aooe 70 mg/mL subcutaneous auto-injector (Aimovig Autoinjector) 70 mg subcut QMONTH see pcp 02/16/25 lamotrigine 100 mg tablet 100 mg PO DAILY see pcp 02/16/25 lurasidone 60 mg tablet 60 mg PO QPM see pcp 02/16/25 tirzepatide 2.5 mg/0.5 mL subcutaneous pen injector (Mounjaro) 2.5 mg subcut QWEEK see PCP 02/16/25 topiramate 25 mg tablet 25 mg PO QHS migraine 02/16/25 dexamethasone 1.5 mg tablet See Rx Instructions .Route .COMPLEX 30 days #60 tabs 02/20/25 hydromorphone 2 mg tablet 2 mg PO TID PRN PRN Pain Score 6-10 3 days #9 tabs 02/20/25 Hospital Course Operations None Procedures EKG Summary of Care Provided Minutes Spent on Discharge: 35 Hospital Course: Patient is a 29-year-old female who presented to [facility] ED on 02/16/2025 with nausea/vomiting and lightheadedness. Hospital course as noted below. Patient discharged home in stable condition on 02/20. 1. Suspected adrenal crisis in setting of [place]'s disease ? Presented with nausea/vomiting/diarrhea, abdominal discomfort and orthostatic lightheadedness and had not taken home Decadron in a few weeks as she had run out. Given 3 L of IV fluids total through morning of 02/18. Moderate improvement noted to this point. Orthostatic vital signs on morning of 02/18 much improved from admission. Transitioned from IV stress steroids and p.o. fludrocortisone to p.o. Decadron on 02/19. Advanced to regular diet on 02/19 and patient tolerated without issue. Will discharge on Decadron taper of 6 mg for 3 days, then 4.5 mg for 3 days, then 3 mg for 3 days, then 1.5 mg daily going forward. 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 2. 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 Is on home Topamax and Lamictal, though she reports recent nonadherence to these medications as she ran out. Apparently does not follow with neurology. Topamax notably is listed as being prescribed for migraines. Had episode on the evening of admission concerning for seizure versus pseudoseizure, no further episodes since then. Continue home Topamax and Lamictal at this time. 3. Depression/anxiety ? Continue home clomipramine, lurasidone and alprazolam as needed. Chronic medical conditions: ? Class I obesity: BMI 30 on admit. Is on Mounjaro weekly as noted below. Encouraged weight loss. ? Reported type 2 diabetes mellitus: A1c 5.8% on admit. Treated with sliding scale insulin with meals while inpatient with good glucose control. Okay to resume home empagliflozin and Mounjaro on discharge. ? Hypothyroidism: Continue home Synthroid. ? Hyperlipidemia: Continue home statin. ? GERD: Continue home PPI. ? History of endometriosis s/p hysterectomy with bilateral salpingo-oophorectomy Total clinical time spent by myself addressing the patient's medical issues, reviewing all the data, and collaborating with patient's care team: 35 minutes. Physical Exam Const alert and oriented x3 Constitutional Narrative: Younger female, class I obesity, mildly fatigued appearing but improving, otherwise appears comfortable laying in bed and is conversing normally. General Appearance: cooperative HEENT normocephalic, head/scalp atraumatic, hearing grossly normal bilaterally, nasal mucous membranes and turbinates normal and moist oral mucous membranes Eyes PERRL, EOMs intact bilaterally and conjunctivae normal Neck full ROM Chest inspection of chest normal Resp normal respiratory effort, normal air movement, no use of accessory muscles and clear to auscultation bilaterally Cardio regular rate, regular rhythm, no murmurs and peripheral pulses 2+ throughout GI GI Narrative: Abdomen soft, nondistended and now nontender to palpation. Improved from admission. Back/Spine normal ROM Extremity normal to inspection, full ROM and no pedal edema Skin no rashes or lesions noted Psych mental status grossly normal Mood & Affect: anxious Weight / BMI Weight Weight: 83.915 kg Body Mass Index (BMI) 30.7 ABG / Lab / Microbiology Data 02/19/25 07:20 02/19/25 07:20 Laboratory: Laboratory Results - last 24 hr 02/19/25 11:29: POC Glucose 137 H 02/19/25 15:54: POC Glucose 134 H 02/20/25 05:47: POC Glucose 90 D/C Instructions DC O2, CPAP, BIPAP Needs Home O2 Discharge instructions: No Meaningful Use Info Meaningful Use Meaningful Use Diagnoses (Choose all that apply): None applicable Ischemic Stroke Statin Dosing Therapy Reference: STATIN DOSE THERAPY REFERENCE: * Patients > 75 years receive moderate or high dose statin therapy. * Patients 75 years or YOUNGER should receive HIGH intensity statin dose unless contraindicated. You will be required to document reason for non-treatment if statin daily dose does not meet guidelines. HIGH DOSE STATIN THERAPY DAILY Atorvastatin > than or = to 40 mg Rosuvastatin > than or = to 20 mg Amlodipine + Atorvastatin > than or = to 2.5/40 mg Ezetimibe + Simvastatin 10/80 mg Simvastatin 80mg Discharge Plan Admission Admit Date/Time: 02/16/25 19:07 Primary Reason for Your Visit: Nausea/vomiting and lightheadedness Attending Provider: Robbin Hanks Primary Care Provider: Kevin Stauffer Consulting Providers: Mary Wang Discharge Orders/Prescriptions Prescriptions: New hydromorphone 2 mg Tablet 2 mg PO TID PRN PRN (Reason: Pain Score 6-10) 3 Days Qty: 9 0RF dexamethasone 1.5 mg tablet See Rx Instructions .ROUTE .COMPLEX 30 Days Qty: 60 0RF Rx Instructions: Please take as follows: 4 pills for 3 days, then 3 pills for 3 days, then 2 pills for 3 days, then 1 pill daily going forward. Continued tizanidine 4 mg tablet 4 mg PO Q8H PRN (Reason: Spasms) Patient Comments: TAKE 1 TABLET BY MOUTH EVERY 8 HOURS NEEDED albuterol sulfate [Ventolin HFA] 90 mcg/actuation HFA aerosol inhaler 2 inh INHALATION Q4H PRN (Reason: sob) Patient Comments: Inhale 2 Puffs as instructed every 4 hours as needed. eletriptan 40 mg tablet 40 mg PO DAILY Patient Comments: Take 1 tablet at the onset of migraine. Repeat 1 dose in 2 hours, if needed. ondansetron 4 mg tablet,disintegrating 8 mg PO Q8H PRN PRN (Reason: Nausea) Qty: 20 0RF pantoprazole 40 mg tablet,delayed release (DR/EC) 40 mg PO DAILY promethazine 25 mg tablet 25 mg PO Q6H PRN PRN (Reason: Nausea) atorvastatin 10 mg tablet 10 mg PO DAILY Patient Comments: TAKE 1 TABLET BY MOUTH ONCE DAILY levothyroxine 125 mcg tablet 125 mcg PO DAILY Patient Comments: Take 1 tablet by mouth once daily. M=S AND 1.5 ON MONDAY naloxone 4 mg/actuation spray,non-aerosol 1 spray INTRANASAL PRN PRN (Reason: OVERDOSE) Patient Comments: [place] 0.1 mL (contents of one device) into one nostril upon signs of opioid overdose. Call 911. May repeat once if no response within 2-3 minutes. clomipramine 50 mg capsule 100 mg PO BID Patient Comments: TAKE 2 CAPSULES BY MOUTH EVERY DAY AT BEDTIME alprazolam 0.5 mg tablet 0.5 mg PO TID PRN PRN (Reason: anxiety) topiramate 25 mg tablet 25 mg PO QHS lurasidone 60 mg tablet 60 mg PO QPM lamotrigine 100 mg tablet 100 mg PO DAILY Jardiance 10 mg tablet 10 mg PO DAILY Mounjaro 2.5 mg/0.5 mL pen injector 2.5 mg subcut QWEEK Rx Instructions: for 4 weeks Aimovig Autoinjector 70 mg/mL auto-injector 70 mg subcut QMONTH Discontinued albuterol sulfate 1 INHALER inhaler 1 - 2 puff INHALATION Q4H PRN PRN (Reason: Sob &/Or Wheezing) ondansetron 4 mg tablet,disintegrating 4 mg PO Q8H PRN PRN (Reason: Nausea) Qty: 10 0RF clomipramine 75 mg capsule 100 mg PO DAILY ondansetron 4 mg tablet,disintegrating 4 mg PO Q6H PRN (Reason: nausea and vomiting) Qty: 12 0RF dexamethasone 0.5 mg tablet 0.5 mg PO DAILY Patient Comments: TAKE 1 TABLET BY MOUTH EVERY 6 HOURS ondansetron 4 mg tablet,disintegrating 4 mg PO Q8H PRN PRN (Reason: Nausea) Qty: 10 0RF ondansetron 4 mg tablet,disintegrating 4 mg PO Q6H PRN (Reason: nausea and vomiting) Qty: 20 0RF Referrals / Follow Up: Kevin Stauffer MD [Primary Care Provider] - Disposition Disposition (needs filled in before D/C Order can be placed): Home, Self Care Charges/Coding Visit Charges Inpatient E&M: 58302 Disch Hosp >30min
[2025-02-20] MEDS: ALPRAZolam 0.5 MG Tablet PO (11:35)
--- NOTE | 2025-02-20 11:36 | CASEMGMT ---
Pt with dc order in. No homegoing needs at this time.
[2025-02-20 11:50] LABS: Bedside Glucose 110 mg/dL (74-106)
== END 2025-02-20 13:31 | disposition home or self-care (01) | DRG 424 ==
LOC: ED 18:54 → MS3 19:10
PROVIDERS: Admitting Provider Internal Medicine; Emergency Provider Emergency Medicine; PCP Family Medicine; Referring Provider Emergency Medicine; Visit Provider Hospitalist
DX: E27.2 Addisonian crisis (principal); E87.20 Acidosis, unspecified; R56.9 Unspecified convulsions; E11.43 Type 2 diabetes mellitus with diabetic autonomic (poly)neuropathy; E89.0 Postprocedural hypothyroidism; E05.00 Thyrotoxicosis with diffuse goiter without thyrotoxic crisis or storm; F32.A Depression, unspecified; Z68.30 Body mass index [BMI] 30.0-30.9, adult; E27.1 Primary adrenocortical insufficiency; R19.7 Diarrhea, unspecified; G43.909 Migraine, unspecified, not intractable, without status migrainosus; F41.9 Anxiety disorder, unspecified; I95.1 Orthostatic hypotension; K21.9 Gastro-esophageal reflux disease without esophagitis; E78.5 Hyperlipidemia, unspecified; K31.84 Gastroparesis; Z90.722 Acquired absence of ovaries, bilateral; Z90.710 Acquired absence of both cervix and uterus; Z87.891 Personal history of nicotine dependence; Z83.3 Family history of diabetes mellitus; Z79.52 Long term (current) use of systemic steroids; E66.811 Obesity, class 1; Z88.6 Allergy status to analgesic agent; Z88.8 Allergy status to other drugs, medicaments and biological substances; Z91.048 Other nonmedicinal substance allergy status; Z91.040 Latex allergy status; Z79.02 Long term (current) use of antithrombotics/antiplatelets; Z79.899 Other long term (current) drug therapy; Z79.84 Long term (current) use of oral hypoglycemic drugs; Z79.890 Hormone replacement therapy
CPT/HCPCS: 36415; 36600; 80048; 80053; 81001; 82803; 82962; 83036; 83605; 83735; 84443; 84484; 85025; 85027; 93005; 99285; A4216; J2405

== ENCOUNTER 2025-06-16 10:06 | Observation (INO) | payer MEDICAID, SELFPAY ==
[2025-06-16] VITALS (11 sets, daily range): BP systolic 94–114; BP diastolic 67–82; PULSE 52–103; RESP 11–18; TEMP 36.5–37; O2SAT 93–100; BMI 33.0
--- NOTE | 2025-06-16 10:55 | EDS_ITS ---
HPI History of Present Illness Chief Complaint: Dizziness Informant: patient Onset/Context/Timing Onset: Yesterday Context: Gradual Onset Timing: Continuous Quality: Dizzy, spinning sensation Location: Generalized Worsened by: Nothing Relieved by: Nothing Narrative Narrative: Patient presents with dizziness and possible [place]'s flare. Patient states she feels like everything is spinning. Patient states it is generalized. Patient admits to some nausea but denies any vomiting. Patient admits to some right upper quadrant abdominal pain which she states is typical of her [place]linger's flareups. Patient states nothing makes it worse and nothing makes it better. Patient states it has been constant since yesterday evening. Patient states she had difficulty walking and called EMS. [facility] Medical History (Updated 06/16/25 @ 17:[address] Terrance Tavera, ) Depression Kidney stones GI bleed Irregular heart beat Migraines Addisonian crisis Addisons disease Gastroparesis Dysphagia Wears glasses History of steroid therapy Diabetes Low iron Easy bruising Restless legs Seizures Difficulty swallowing History of ulceration History of IBS History of diverticulitis Gastric reflux Former smoker Asthma Shortness of breath on exertion Cardiology follow-up encounter History of echocardiogram History of stress test Chest pain History of left heart catheterization Anxiety and depression Graves disease Abnormal uterine bleeding (AUB) Endometriosis determined by laparoscopy Adenomyosis Chronic female pelvic pain Migraine Mild intermittent asthma Home Medications ?Medication ?Instructions ?Recorded ?Last Taken ?Type albuterol sulfate 90 mcg/actuation 2 inh inhalation Q4 H PRN sob 08/09/22 Unknown History aerosol inhaler (Ventolin HFA) tizanidine 4 mg tablet 4 mg PO Q8H PRN Spasms 08/0906/15/25 History pantoprazole 40 mg tablet,delayed 40 mg PO DAILY see p cp 02/23/23 06/15/25 History release atorvastatin 10 mg tablet 10 mg PO DAILY hyperlipidemi a 07/24/23 06/15/25 History clomipramine 50 mg capsule 100 mg PO BID see pcp 07/2406/15/25 History levothyroxine 125 mcg tablet 125 mcg PO DAILY see pcp 07/24/23 06/15/25 History alprazolam 0.5 mg tablet 0.5 mg PO TID PRN PRN anxiet y 02/16/25 06/15/25 History empagliflozin 10 mg tablet 10 mg PO DAILY see pcp 01/2206/15/25 History (Jardiance) lamotrigine 100 mg tablet 100 mg PO DAILY see pcp 01/2206/15/25 History lurasidone 60 mg tablet 60 mg PO QPM see pcp 5 06/15/25 History topiramate 25 mg tablet 25 mg PO QHS migraine 06/15/25 History dexamethasone 0.75 mg tablet 1.5 mg PO Q24H 06/16/25 0 06/15/25 History Allergy/AdvReac Type Severity Reaction Status Date / Time acetaminophen (From Excedrin Allergy Anaphylaxis Verified 06/16/25 10:09 Migraine) aspirin (From Excedrin Allergy Anaphylaxis Verified 06/16/25 10:09 Migraine) azithromycin (From Zithromax Allergy Anaphylaxis Verified 06/16/25 10:09 Z-Ruiz) bacitracin (From Neosporin Allergy Swelling Verified 06/16/25 10:09 ([id number])) bacitracin zinc (From Allergy Swelling Verified 06/16/25 10:09 Neosporin ([id number])) caffeine (From Excedrin Allergy Anaphylaxis Verified 06/16/25 10:09 Migraine) latex Allergy Rash Verified 06/16/25 10:09 neomycin sulfate (From Allergy Swelling Verified 06/16/25 10:09 Neosporin ([id number])) polymyxin B (From Neosporin Allergy Swelling Verified 06/16/25 10:09 ([id number])) Family History Uncle Diabetes Cancer lung Father Diabetes Grandfather CVA (cerebral vascular accident) Cancer lung, unsure additional type Uncle Cancer brain Grandmother Cancer lung and unsure additional type Surgical History (Updated 06/16/25 @ 17:11 by Dayami Steele) History of cholecystectomy History of appendectomy Hx laparoscopic cholecystectomy History of left salpingo-oophorectomy History of tubal ligation History of laparoscopic-assisted vaginal hysterectomy History of laparoscopy History of wisdom tooth extraction History of thyroidectomy History of section Social History (Updated 02/16/25 @ 16:54 by Vesta Lucero) household members: spouse housing: house Smoking Status: Former smoker EXAM Physical Exam Const Vital Signs: 06/16/25 10:07 06/16/25 10:59 06/16/25 11:07 Temperature 97.9 F Temperature Source Oral Pulse Rate 66 62 Pulse Rate [Lying] 64 Pulse Rate [Sitting (for 1 minute prior to obtaining)] 81 Pulse Rate [Standing (for 1 minute prior to obtaining)] 103 H Respiratory Rate 11 L Blood Pressure 102/68 101/72 Blood Pressure [Lying] 94/67 Blood Pressure [Sitting (for 1 minute prior to obtaining)] 106/79 Blood Pressure [Standing (for 1 minute prior to obtaining)] 98/82 H Blood Pressure Mean 79 81 Blood Pressure Mean [Lying] 76 Blood Pressure Mean [Sitting (for 1 minute prior to obtaining)] 88
--- NOTE | 2025-06-16 10:55 | EX.ED.DYSGE1 ---
HPI History of Present Illness Chief Complaint: Dizziness Informant: patient Onset/Context/Timing Onset: Yesterday Context: Gradual Onset Timing: Continuous Quality: Dizzy, spinning sensation Location: Generalized Worsened by: Nothing Relieved by: Nothing Narrative Narrative: Patient presents with dizziness and possible Davonte's flare. Patient states she feels like everything is spinning. Patient states it is generalized. Patient admits to some nausea but denies any vomiting. Patient admits to some right upper quadrant abdominal pain which she states is typical of her Becker's flareups. Patient states nothing makes it worse and nothing makes it better. Patient states it has been constant since yesterday evening. Patient states she had difficulty walking and called EMS. [facility] Medical History (Updated 06/16/25 @ 17:[address] Terrance Tavera, ) Depression Kidney stones GI bleed Irregular heart beat Migraines Addisonian crisis Addisons disease Gastroparesis Dysphagia Wears glasses History of steroid therapy Diabetes Low iron Easy bruising Restless legs Seizures Difficulty swallowing History of ulceration History of IBS History of diverticulitis Gastric reflux Former smoker Asthma Shortness of breath on exertion Cardiology follow-up encounter History of echocardiogram History of stress test Chest pain History of left heart catheterization Anxiety and depression Graves disease Abnormal uterine bleeding (AUB) Endometriosis determined by laparoscopy Adenomyosis Chronic female pelvic pain Migraine Mild intermittent asthma Home Medications ?Medication ?Instructions ?Recorded ?Last Taken ?Type albuterol sulfate 90 mcg/actuation 2 inh inhalation Q4H PRN sob 08/09/22 Unknown History aerosol inhaler (Ventolin HFA) tizanidine 4 mg tablet 4 mg PO Q8H PRN Spasms 08/09/22 06/15/25 History pantoprazole 40 mg tablet,delayed 40 mg PO DAILY see pcp 02/23/23 06/15/25 History release atorvastatin 10 mg tablet 10 mg PO DAILY hyperlipidemia 07/24/23 06/15/25 History clomipramine 50 mg capsule 100 mg PO BID see pcp 07/24/23 06/15/25 History levothyroxine 125 mcg tablet 125 mcg PO DAILY see pcp 07/24/23 06/15/25 History alprazolam 0.5 mg tablet 0.5 mg PO TID PRN PRN anxiety 02/16/25 06/15/25 History empagliflozin 10 mg tablet 10 mg PO DAILY see pcp 02/16/25 06/15/25 History (Jardiance) lamotrigine 100 mg tablet 100 mg PO DAILY see pcp 02/16/25 06/15/25 History lurasidone 60 mg tablet 60 mg PO QPM see pcp 02/16/25 06/15/25 History topiramate 25 mg tablet 25 mg PO QHS migraine 02/16/25 06/15/25 History dexamethasone 0.75 mg tablet 1.5 mg PO Q24H 06/16/25 06/15/25 History Allergy/AdvReac Type Severity Reaction Status Date / Time acetaminophen (From Excedrin Allergy Anaphylaxis Verified 06/16/25 10:09 Migraine) aspirin (From Excedrin Allergy Anaphylaxis Verified 06/16/25 10:09 Migraine) azithromycin (From Zithromax Allergy Anaphylaxis Verified 06/16/25 10:09 Z-Ruiz) bacitracin (From Neosporin Allergy Swelling Verified 06/16/25 10:09 ([id number])) bacitracin zinc (From Allergy Swelling Verified 06/16/25 10:09 Neosporin ([id number])) caffeine (From Excedrin Allergy Anaphylaxis Verified 06/16/25 10:09 Migraine) latex Allergy Rash Verified 06/16/25 10:09 neomycin sulfate (From Allergy Swelling Verified 06/16/25 10:09 Neosporin ([id number])) polymyxin B (From Neosporin Allergy Swelling Verified 06/16/25 10:09 ([id number])) Family History Uncle Diabetes Cancer lung Father Diabetes Grandfather CVA (cerebral vascular accident) Cancer lung, unsure additional type Uncle Cancer brain Grandmother Cancer lung and unsure additional type Surgical History (Updated 06/16/25 @ 17:11 by Dayami Steele) History of cholecystectomy History of appendectomy Hx laparoscopic cholecystectomy History of left salpingo-oophorectomy History of tubal ligation History of laparoscopic-assisted vaginal hysterectomy History of laparoscopy History of wisdom tooth extraction History of thyroidectomy History of section Social History (Updated 02/16/25 @ 16:54 by Vesta Lucero) household members: spouse housing: house Smoking Status: Former smoker EXAM Physical Exam Const Vital Signs: 06/16/25 10:07 06/16/25 10:59 06/16/25 11:07 Temperature 97.9 F Temperature Source Oral Pulse Rate 66 62 Pulse Rate [Lying] 64 Pulse Rate [Sitting (for 1 minute prior to obtaining)] 81 Pulse Rate [Standing (for 1 minute prior to obtaining)] 103 H Respiratory Rate 11 L Blood Pressure 102/68 101/72 Blood Pressure [Lying] 94/67 Blood Pressure [Sitting (for 1 minute prior to obtaining)] 106/79 Blood Pressure [Standing (for 1 minute prior to obtaining)] 98/82 H Blood Pressure Mean 79 81 Blood Pressure Mean [Lying] 76 Blood Pressure Mean [Sitting (for 1 minute prior to obtaining)] 88 Blood Pressure Mean [Standing (for 1 minute prior to obtaining)] 87 Pulse Ox 94 98 Oxygen Delivery Method Room Air 06/16/25 12:00 06/16/25 13:35 06/16/25 14:58 Temperature Temperature Source Pulse Rate 67 61 63 Pulse Rate [Lying] Pulse Rate [Sitting (for 1 minute prior to obtaining)] Pulse Rate [Standing (for 1 minute prior to obtaining)] Respiratory Rate 14 17 Blood Pressure 98/71 Blood Pressure [Lying] Blood Pressure [Sitting (for 1 minute prior to obtaining)] Blood Pressure [Standing (for 1 minute prior to obtaining)] Blood Pressure Mean 80 Blood Pressure Mean [Lying] Blood Pressure Mean [Sitting (for 1 minute prior to obtaining)] Blood Pressure Mean [Standing (for 1 minute prior to obtaining)] Pulse Ox 99 93 Oxygen Delivery Method 06/16/25 15:00 06/16/25 16:13 Temperature Temperature Source Pulse Rate 66 65 Pulse Rate [Lying] Pulse Rate [Sitting (for 1 minute prior to obtaining)] Pulse Rate [Standing (for 1 minute prior to obtaining)] Respiratory Rate 16 18 Blood Pressure Blood Pressure [Lying] Blood Pressure [Sitting (for 1 minute prior to obtaining)] Blood Pressure [Standing (for 1 minute prior to obtaining)] Blood Pressure Mean Blood Pressure Mean [Lying] Blood Pressure Mean [Sitting (for 1 minute prior to obtaining)] Blood Pressure Mean [Standing (for 1 minute prior to obtaining)] Pulse Ox 100 Oxygen Delivery Method Positive well nourished and well developed Constitutional Narrative: BMI is 33.0. General Appearance ED: well developed and NAD HEENT Reports moist mucous membranes Neck supple and no JVD Resp normal respiratory effort and clear to auscultation bilaterally Cardio regular rate and regular rhythm GI non-tender and non-distended Palpation: soft Extremity normal to inspection General Extremety ED: Negative for edema or tenderness General Extremity: Negative for edema Neuro oriented x3, CN's II-XII intact bilaterally and no sensory deficits noted Sensorium / Orientation: alert Motor Exam: strength 5/5 throughout Psych mental status grossly normal MDM MDM MDM Narrative Medical decision making narrative: Differential diagnosis includes Becker's crisis, gastroenteritis, gastritis, peptic ulcer disease, duodenal ulcer, pancreatitis, dehydration, diabetic ketoacidosis, sepsis, peripheral vertigo, and electrolyte abnormality. CBC will be obtained to assess for leukocytosis and anemia. Basic metabolic profile will be obtained to assess for electrolyte abnormality and renal function. Serum lactate will be obtained to assess for sepsis. PT with INR PTT will be obtained to assess for coagulopathy. Serum cortisol level will be obtained to assess for Becker's crisis. Urinalysis will be obtained to assess for urinary tract infection or hematuria. COVID-19, influenza, and RSV PCR will be obtained to assess for viral illness. Serum ketones will be obtained to assess for diabetic ketoacidosis. Orthostatic vital signs will be obtained to assess for hypovolemia. History & Record Review Additional record(s) reviewed:: Prior inpatient record, Prior ED visit and Prior labs Lab Data Attestation: I reviewed the patient's lab results. Lab results narrative: CBC was reviewed and was essentially within normal limits. Basic metabolic profile was reviewed and was within normal limits. Serum lactate was reviewed and was 2.0. PT with INR and PTT were reviewed and were within normal limits. Urinalysis was reviewed. There is no evidence of urinary tract infection or hematuria. Serum cortisol level was reviewed and was low at 0.16. Beta hydroxybutyrate was obtained and was normal at 0.1. COVID-19 PCR was reviewed and was negative. Influenza PCR was reviewed and was negative for influenza A and influenza B. RSV PCR was reviewed and was negative. Labs: Laboratory Results - last 24 hr 06/16/25 06/16/25 06/16/25 11:11 11:35 11:53 WBC 9.4 RBC 5.19 Hgb 12.7 Hct 41.6 MCV 80.2 L MCH 24.5 L MCHC 30.5 L RDW Std Deviation 45.7 H RDW Coeff of Renetta 16.1 H Plt Count 280 MPV 9.6 Immature Gran % (Auto) 0.400 Neut % (Auto) 58.0 Lymph % (Auto) 32.6 [place] % (Auto) 8.6 Eos % (Auto) 0.0 Baso % (Auto) 0.4 Absolute Neuts (auto) 5.4 Absolute Lymphs (auto) 3.06 Nucleated RBC % 0 PT 13.1 INR 1.0 APTT 29.0 Sodium 140 Potassium 3.8 Chloride 103 Carbon Dioxide 21.3 Anion Gap 16 H BUN 9 Creatinine 0.92 Estim Creat Clear Calc 97.23 Est GFR (MDRD) Non-Af 85 BUN/Creatinine Ratio 10.1 Glucose 72 Lactic Acid 2.0 Calcium 9.1 b-Hydroxybutyric mmol/L 0.1 Cortisol AM Sample 0.16 L Urine Color Straw Urine Clarity Clear Urine pH 7.0 Ur Specific [place] 1.005 Urine Protein 15 H Urine Glucose (UA) 250 H Urine Ketones Negative Urine Occult Blood Negative Urine Nitrite Negative Urine Bilirubin Negative Urine Urobilinogen Normal Ur Leukocyte Esterase Negative Urine RBC 0 SEEN Urine WBC 0-5 SEEN Ur Squamous Epith Cells 0 SEEN Urine Bacteria RARE Urine Mucus 0 SEEN Treatment and Re-Evaluation :: Patient was given IV fluids. Patient was given a dose of Solu-Cortef. Patient is feeling better on reevaluation. However, she still felt dizzy. Patient was advised of her findings. Patient was given a repeat bolus of normal saline. Case was discussed with the hospitalist. She will admit the patient to her service. Patient understood and was agreeable with the plan. All questions were answered. Discharge Plan Dx/Rx/DC Orders Clinical Impression: Acute adrenal insufficiency, Vertigo, Type 2 diabetes mellitus Disposition Disposition: Acute Care Hospital [facility] Discharge Date/Time: 06/16/25 17:41
[2025-06-16 11:20] LABS: Mucous, Urine 0 SEEN /hpf (<or=2+); Red Blood Cells-Urine 0 SEEN /hpf (0-5); Squamous Epithelial Cells - UA 0 SEEN /hpf (5-10)
[2025-06-16 11:26] LABS: Color, Urine Straw (Yellow); Glucose, Dipstick 250 mg/dl (Normal); Ketone-Dipstick Negative (Negative); Leukocyte Esterase-Dipstick Negative /ul (Negative); Nitrite-Dipstick Negative (Negative); Occult Blood-Urine Negative /ul (Negative); Protein-Dipstick 15 mg/dl (Negative); Specific Gravity, Urine 1.005 (1.002-1.030); Urine Bilirubin Dipstick Negative (Negative)
[2025-06-16] MEDS: 0.9% Normal Saline (1000mL) 1,000 ML 1000 ML IV ×2 (11:42→16:55)
[2025-06-16 11:45] LABS: Hematocrit 41.6 % (37-47); Hemoglobin 12.7 g/dL (12.0-15.0); Immature Granulocytes Count 0.040 X10^3/uL (0.0-0.0); Mean Corp Hgb Conc 30.5 g/dL (32-36); Mean Corpuscular Volume 80.2 fL (81-99); Mean Platelet Vol. 9.6 fl (6.2-12.0); NRBC Flagged by Analyzer 0 % (0-5); Platelet Count 280 K/mm3 (150-450); RBC Distribution Width CV 16.1 % (11.6-14.6); RBC Distribution Width SD 45.7 fl (35.1-43.9); Red Blood Count 5.19 M/mm3 (4.2-5.4); White Blood Count 9.4 K/mm3 (4.4-11.0)
[2025-06-16 12:11] LABS: Prothrombin Time (Protime)PT. 13.1 SECONDS (11.7-14.9)
[2025-06-16 12:12] LABS: Partial Thromboplast Time 29.0 Seconds (24.1-36.2)
[2025-06-16 12:30] LABS: BETA-HYDROXYBUTYRATE 0.1 mmol/L (0.0-0.3)
[2025-06-16 12:35] LABS: Anion Gap 16 (5-15); BUN 9 mg/dL (4-19); BUN/Creat Ratio 10.1 RATIO (10-20); CORTISOL AM 0.16 ug/dL (6.02-18.40); Calcium,Total 9.1 mg/dL (7.6-11.0); Carbon Dioxide 21.3 mmol/L (21.0-32.0); Chloride 103 mmol/L (98-108); Estimated Creatinine Clearance 97.23 ml/min (50-250); Glucose 72 mg/dL (70-99); Potassium 3.8 mmol/L (3.3-5.1)
[2025-06-16 15:57] LABS: Reflex Lactate? Y
--- NOTE | 2025-06-16 17:13 | PCM.HP.STD ---
HPI - General General Date of Admission: 06/16/25 Date of Service: 06/16/25 Chief Complaint: light headed HPI Narrative SONIA SZYMANSKI, is a 30-year-old female history of [place]'s disease, anxiety, migraines, GERD, hypothyroidism who presented to [facility] ED 06/16/2025 reporting lightheadedness and feeling like she was going into an adrenal crisis. In the ED patient afebrile, heart rate 66 with a blood pressure 102/68 and patient 94% on room air. Labs fairly unrevealing aside from a cortisol that was low at 0.16 despite patient reporting compliance with her medications for Menifee's. She reports she recently saw her chief operator reformer and they were actually going to increase her medicine as they were concerned she was headed towards adrenal crisis which she has yet to pick it up. Patient given a dose of IV hydrocortisone, IV fluids and hospitalist contacted for admission. Patient evaluated at bedside, she reports that she is lightheaded and feels foggy when she tries to sit up or stand up, also has a left sided headache which she reports is where she gets her migraines and thinks it is from all of the stress of this, has had some nausea and diarrhea over the past 2 days and reports that this feels just like previous adrenal crises, also some right upper quadrant pain, again consistent with this. [facility] Medical History (Updated 06/16/25 @ 17:[address] Terrance Tavera, DO) Abnormal uterine bleeding (AUB) Addisonian crisis Addisons disease Adenomyosis Anxiety and depression Asthma Cardiology follow-up encounter Chest pain Chronic female pelvic pain Depression Diabetes Difficulty swallowing Dysphagia Easy bruising Endometriosis determined by laparoscopy Former smoker Gastric reflux Gastroparesis GI bleed Graves disease History of diverticulitis History of echocardiogram History of IBS History of left heart catheterization History of steroid therapy History of stress test History of ulceration Irregular heart beat Kidney stones Low iron Migraine Migraines Mild intermittent asthma Restless legs Seizures Shortness of breath on exertion Wears glasses Home Medications ?Medication ?Instructions ?Recorded ?Last Taken ?Type albuterol sulfate 90 mcg/actuation 2 inh inhalation Q4H PRN sob 08/09/22 Unknown History aerosol inhaler (Ventolin HFA) tizanidine 4 mg tablet 4 mg PO Q8H PRN Spasms 08/09/22 06/15/25 History pantoprazole 40 mg tablet,delayed 40 mg PO DAILY see pcp 02/23/23 06/15/25 History release atorvastatin 10 mg tablet 10 mg PO DAILY hyperlipidemia 07/24/23 06/15/25 History clomipramine 50 mg capsule 100 mg PO BID see pcp 07/24/23 06/15/25 History levothyroxine 125 mcg tablet 125 mcg PO DAILY see pcp 07/24/23 06/15/25 History alprazolam 0.5 mg tablet 0.5 mg PO TID PRN PRN anxiety 02/16/25 06/15/25 History empagliflozin 10 mg tablet 10 mg PO DAILY see pcp 02/16/25 06/15/25 History (Jardiance) lamotrigine 100 mg tablet 100 mg PO DAILY see pcp 02/16/25 06/15/25 History lurasidone 60 mg tablet 60 mg PO QPM see pcp 02/16/25 06/15/25 History topiramate 25 mg tablet 25 mg PO QHS migraine 02/16/25 06/15/25 History dexamethasone 0.75 mg tablet 1.5 mg PO Q24H 06/16/25 06/15/25 History Allergy/AdvReac Type Severity Reaction Status Date / Time acetaminophen (From Excedrin Allergy Anaphylaxis Verified 06/16/25 10:09 Migraine) aspirin (From Excedrin Allergy Anaphylaxis Verified 06/16/25 10:09 Migraine) azithromycin (From Zithromax Allergy Anaphylaxis Verified 06/16/25 10:09 Z-Ruiz) bacitracin (From Neosporin Allergy Swelling Verified 06/16/25 10:09 ([id number])) bacitracin zinc (From Allergy Swelling Verified 06/16/25 10:09 Neosporin ([id number])) caffeine (From Excedrin Allergy Anaphylaxis Verified 06/16/25 10:09 Migraine) latex Allergy Rash Verified 06/16/25 10:09 neomycin sulfate (From Allergy Swelling Verified 06/16/25 10:09 Neosporin ([id number])) polymyxin B (From Neosporin Allergy Swelling Verified 06/16/25 10:09 ([id number])) Family History Uncle Diabetes Cancer lung Father Diabetes Grandfather CVA (cerebral vascular accident) Cancer lung, unsure additional type Uncle Cancer brain Grandmother Cancer lung and unsure additional type Surgical History (Updated 06/16/25 @ 17:11 by Dayami Steele) History of appendectomy History of section History of cholecystectomy History of laparoscopic-assisted vaginal hysterectomy History of laparoscopy History of left salpingo-oophorectomy History of thyroidectomy History of tubal ligation History of wisdom tooth extraction Hx laparoscopic cholecystectomy Social History (Updated 02/16/25 @ 16:54 by Vesta Lucero) household members: spouse housing: house Smoking Status: Former smoker ROS ROS Narrative General: Denies fever/chills HENT: Left-sided headache, denies stuffy nose, denies sore throat EYES: Denies changes in vision Resp: Denies cough, denies shortness of breath Cardiac: Denies chest pain GI: Some right upper quadrant pain, diarrhea, nausea : Denies changes in urination Extremity: Denies swelling MSK: Feels generally weak and fatigued Neuro: Denies any numbness/tingling Heme: Denies any bleeding or bruising Skin: Denies rashes Psychiatric: No complaints voiced Vital Signs Vital Signs Vital Signs: 06/16/25 10:07 06/16/25 10:59 06/16/25 11:07 Temperature 97.9 F Temperature Source Oral Pulse Rate 66 62 Pulse Rate [Lying] 64 Pulse Rate [Sitting (for 1 minute prior to obtaining)] 81 Pulse Rate [Standing (for 1 minute prior to obtaining)] 103 H Respiratory Rate 11 L Blood Pressure 102/68 101/72 Blood Pressure [Lying] 94/67 Blood Pressure [Sitting (for 1 minute prior to obtaining)] 106/79 Blood Pressure [Standing (for 1 minute prior to obtaining)] 98/82 H Blood Pressure Mean 79 81 Blood Pressure Mean [Lying] 76 Blood Pressure Mean [Sitting (for 1 minute prior to obtaining)] 88 Blood Pressure Mean [Standing (for 1 minute prior to obtaining)] 87 Pulse Ox 94 98 Oxygen Delivery Method Room Air 06/16/25 12:00 06/16/25 13:35 06/16/25 14:58 Temperature Temperature Source Pulse Rate 67 61 63 Pulse Rate [Lying] Pulse Rate [Sitting (for 1 minute prior to obtaining)] Pulse Rate [Standing (for 1 minute prior to obtaining)] Respiratory Rate 14 17 Blood Pressure 98/71 Blood Pressure [Lying] Blood Pressure [Sitting (for 1 minute prior to obtaining)] Blood Pressure [Standing (for 1 minute prior to obtaining)] Blood Pressure Mean 80 Blood Pressure Mean [Lying] Blood Pressure Mean [Sitting (for 1 minute prior to obtaining)] Blood Pressure Mean [Standing (for 1 minute prior to obtaining)] Pulse Ox 99 93 Oxygen Delivery Method 06/16/25 15:00 06/16/25 16:13 Temperature Temperature Source Pulse Rate 66 65 Pulse Rate [Lying] Pulse Rate [Sitting (for 1 minute prior to obtaining)] Pulse Rate [Standing (for 1 minute prior to obtaining)] Respiratory Rate 16 18 Blood Pressure Blood Pressure [Lying] Blood Pressure [Sitting (for 1 minute prior to obtaining)] Blood Pressure [Standing (for 1 minute prior to obtaining)] Blood Pressure Mean Blood Pressure Mean [Lying] Blood Pressure Mean [Sitting (for 1 minute prior to obtaining)] Blood Pressure Mean [Standing (for 1 minute prior to obtaining)] Pulse Ox 100 Oxygen Delivery Method Weight Weight: 89.9 kg Body Mass Index (BMI) 33.0 Physical Exam Narrative General: Alert, oriented, appears to feel unwell HEENT: Atraumatic, normocephalic Eyes: Anicteric, normal conjunctiva, extraocular movements grossly intact Neck: Supple Respiratory: Clear to auscultation bilaterally, normal respiratory effort Cardiovascular: Regular rate and rhythm GI: Soft, nondistended, some tenderness more on right side of abdomen without rebound, guarding, rigidity Extremities: No edema Musculoskeletal: Moving all extremities Neuro: No overt focal neurological deficits Skin: No rashes appreciated Psych: Cooperative Results Lab / Micro Data 06/16/25 11:35 06/16/25 11:35 Labs: Laboratory Results - last 24 hr 06/16/25 11:11: Urine Color Straw, Urine Clarity Clear, Urine pH 7.0, Ur Specific [place] 1.005, Urine Protein 15 H, Urine Glucose (UA) 250 H, Urine Ketones Negative, Urine Occult Blood Negative, Urine Nitrite Negative, Urine Bilirubin Negative, Urine Urobilinogen Normal, Ur Leukocyte Esterase Negative, Urine RBC 0 SEEN, Urine WBC 0-5 SEEN, Ur Squamous Epith Cells 0 SEEN, Urine Bacteria RARE, Urine Mucus 0 SEEN 06/16/25 11:35: WBC 9.4, RBC 5.19, Hgb 12.7, Hct 41.6, MCV 80.2 L, MCH 24.5 L, MCHC 30.5 L, RDW Std Deviation 45.7 H, RDW Coeff of Renetta 16.1 H, Plt Count 280, MPV 9.6, Immature Gran % (Auto) 0.400, Neut % (Auto) 58.0, Lymph % (Auto) 32.6, [place] % (Auto) 8.6, Eos % (Auto) 0.0, Baso % (Auto) 0.4, Absolute Neuts (auto) 5.4, Absolute Lymphs (auto) 3.06, Nucleated RBC % 0, Sodium 140, Potassium 3.8, Chloride 103, Carbon Dioxide 21.3, Anion Gap 16 H, BUN 9, Creatinine 0.92, Estim Creat Clear Calc 97.23, Est GFR (MDRD) Non-Af 85, BUN/Creatinine Ratio 10.1, Glucose 72, Calcium 9.1, b-Hydroxybutyric mmol/L 0.1, Cortisol AM Sample 0.16 L 06/16/25 11:53: PT 13.1, INR 1.0, APTT 29.0, Lactic Acid 2.0 Micro: Microbiology 06/16/25 11:00 Mucosa - Nose SARS-CoV-2, Influenza & RSV (PCR) - Final Assessment & Plan Assessment/Plan (1) Acute adrenal insufficiency: PLAN: Plan # 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 insufficiency - Serum cortisol is low, patient reports all of her symptoms are consistent with previous episodes of adrenal insufficiency, recently saw her outpatient chief operator reformer who was concern for this as well and was going to adjust her medications but she has not picked them up yet - Continue stress dose steroids and IV fluids - Blood pressure already improving, patient seems to be improving overall, may not need prolonged stay # History of migraines - Continue Topamax #Depression/anxiety -Continue home medications #GERD -Continue PPI #Hypothyroidism -Continue Synthroid #DVT ppx: Hypothyroidism Mary Wang MD Time spent in the patient's overall evaluation, decision-making process, review of diagnostic data, adjustment of management, discussion with other providers, nursing and ancillary staff involved in patient's care documentation, 57 Minutes Charges/Coding Visit Charges Inpatient E&M: 20461 Init Hosp L2
[2025-06-16] MEDS: 0.9% Normal Saline (1000mL) 1,000 ML 100 ML IV (18:48)
[2025-06-16] MEDS: 0.9% Saline Lock 10 ML Syringe IV (20:28)
[2025-06-17 00:48] VITALS: BP 117/76; PULSE 59; RESP 16; TEMP 36.4; O2SAT 98
[2025-06-17] MEDS: 0.9% Normal Saline (1000mL) 1,000 ML 100 ML IV (05:11)
[2025-06-17 06:05] VITALS: BP 101/72; PULSE 70; RESP 16; TEMP 36.3; O2SAT 94
[2025-06-17 07:40] LABS: Hematocrit 35.4 % (37-47); Hemoglobin 11.2 g/dL (12.0-15.0); Immature Granulocytes Count 0.040 X10^3/uL (0.0-0.0); Mean Corp Hgb Conc 31.6 g/dL (32-36); Mean Corpuscular Volume 79.2 fL (81-99); Mean Platelet Vol. 10.6 fl (6.2-12.0); NRBC Flagged by Analyzer 0 % (0-5); Platelet Count 356 K/mm3 (150-450); RBC Distribution Width CV 16.1 % (11.6-14.6); RBC Distribution Width SD 45.8 fl (35.1-43.9); Red Blood Count 4.47 M/mm3 (4.2-5.4); White Blood Count 10.1 K/mm3 (4.4-11.0)
[2025-06-17 08:37] VITALS: BP 109/74; PULSE 67; RESP 18; TEMP 36.2; O2SAT 98
[2025-06-17] MEDS: CLARIFY ORDER 1 EACH NOTE (08:42)
[2025-06-17 08:44] LABS: Anion Gap 11 (5-15); BUN 6 mg/dL (4-19); BUN/Creat Ratio 8.7 RATIO (10-20); Calcium,Total 8.1 mg/dL (7.6-11.0); Carbon Dioxide 21.9 mmol/L (21.0-32.0); Chloride 106 mmol/L (98-108); Estimated Creatinine Clearance 124.24 ml/min (50-250); Glucose 89 mg/dL (70-99); Potassium 3.9 mmol/L (3.3-5.1)
--- NOTE | 2025-06-17 09:29 | PCM.DC ---
Discharge Instructions DC O2, CPAP, BIPAP needs Home O2 Discharge instructions: No Dressing / Incision Discharge Activity: Return to Normal Activity Dressing / Incision Call your doctor if you observe: Fever of 101 or Higher, Shortness of breath, Dizziness, Fainting spells, Swelling in the ankles, Chest pain and Increased palpitations (irregular heartbeat) Follow Up Care Test Results: Test results from this visit will be discussed in further detail at your follow-up appointment, if applicable. Discharge Plan Admission Admit Date/Time: 06/16/25 17:13 Attending Provider: Mode Christianson Primary Care Provider: Kevin Stauffer Consulting Providers: Mary Wang Discharge Orders/Prescriptions Prescriptions: New oxycodone 5 mg Tablet 5 mg PO Q4H PRN PRN (Reason: Pain Score 4-10) 3 Days Qty: 10 0RF dexamethasone 1.5 mg tablet 1.5 mg PO DAILY Qty: 18 0RF Rx Instructions: take 3 tablets daily for 3 days then 2 tablets daily for 3 days then 1 tablet daily for 3 days then resume regular dosing Continued tizanidine 4 mg tablet 4 mg PO Q8H PRN (Reason: Spasms) Patient Comments: TAKE 1 TABLET BY MOUTH EVERY 8 HOURS NEEDED albuterol sulfate [Ventolin HFA] 90 mcg/actuation HFA aerosol inhaler 2 inh INHALATION Q4H PRN (Reason: sob) Patient Comments: Inhale 2 Puffs as instructed every 4 hours as needed. pantoprazole 40 mg tablet,delayed release (DR/EC) 40 mg PO DAILY atorvastatin 10 mg tablet 10 mg PO DAILY Patient Comments: TAKE 1 TABLET BY MOUTH ONCE DAILY levothyroxine 125 mcg tablet 125 mcg PO DAILY Patient Comments: Take 1 tablet by mouth once daily. M=S AND 1.5 ON MONDAY clomipramine 50 mg capsule 100 mg PO BID Patient Comments: TAKE 2 CAPSULES BY MOUTH EVERY DAY AT BEDTIME alprazolam 0.5 mg tablet 0.5 mg PO TID PRN PRN (Reason: anxiety) topiramate 25 mg tablet 25 mg PO QHS lurasidone 60 mg tablet 60 mg PO QPM lamotrigine 100 mg tablet 100 mg PO DAILY Jardiance 10 mg tablet 10 mg PO DAILY dexamethasone 0.75 mg tablet 1.5 mg PO Q24H Referrals / Follow Up: [place],Kevin, MD [Primary Care Provider] - Within 1 Week Disposition Disposition (needs filled in before D/C Order can be placed): Home, Self Care
[2025-06-17 09:56] LABS: Ferritin 41 ng/mL (22-378); Iron Binding Capacity,Total 322 ug/dL (250-450)
[2025-06-17 10:04] LABS: Iron 52 ug/dL (50-170); Iron Binding Capacity,Unsat 270 ug/dL (228-428)
--- NOTE | 2025-06-17 10:47 | PHA.DC_ITS ---
Pharmacy [facility] Counseling Pharmacy Service has performed discharge medication reconciliation and counseling for this patient. 1. OXYCODONE 5MG PO Q4H PRN PAIN 2. DECADRON 4.5MG PO DAILY X 3 DAYS, THEN 3MG X 3 DAYS, THEN 1.5MG X 3 DAYS, THEN RESUME NORMAL DOSING The patient's discharge medication list was reviewed for discrepancies and discrepancies were resolved. The patient was counseled on the following discharge medications and changes in medications for homegoing were reviewed. The Reason for Use, instructions for use, and potential side effects were reviewed for all new medications. The patient's questions regarding all of their medications were answered. The patient was able to verbally demonstrate an understanding of their discharge medications. Medications at Discharge Home Medications albuterol sulfate 90 mcg/actuation aerosol inhaler (Ventolin HFA) 2 inh inhalation Q4H PRN sob 08/09/22 tizanidine 4 mg tablet 4 mg PO Q8H PRN Spasms 08/09/22 pantoprazole 40 mg tablet,delayed release 40 mg PO DAILY see pcp 02/23/23 atorvastatin 10 mg tablet 10 mg PO DAILY hyperlipidemia 07/24/23 clomipramine 50 mg capsule 100 mg PO BID see pcp 07/24/23 levothyroxine 125 mcg tablet 125 mcg PO DAILY see pcp 07/24/23 alprazolam 0.5 mg tablet 0.5 mg PO TID PRN PRN anxiety 02/16/25 empagliflozin 10 mg tablet (Jardiance) 10 mg PO DAILY see pcp 02/16/25 lamotrigine 100 mg tablet 100 mg PO DAILY see pcp 02/16/25 lurasidone 60 mg tablet 60 mg PO QPM see pcp 02/16/25 topiramate 25 mg tablet 25 mg PO QHS migraine 02/16/25 dexamethasone 0.75 mg tablet 1.5 mg PO Q24H 06/16/25 dexamethasone 1.5 mg tablet 1.5 mg PO DAILY #18 tabs 06/17/25 oxycodone 5 mg tablet 5 mg PO Q4H PRN PRN Pain Score 4-10 3 days #10 tabs 06/17/25
[2025-06-17 14:17] VITALS: BP 105/80; PULSE 65; RESP 18; TEMP 36.2; O2SAT 96
--- NOTE | 2025-06-17 15:49 | PCM.DC.SUM ---
Providers Date of Admission: 06/16/25 Primary Care Physician: Dr. Kevin Stauffer MD Reason For Visit: CONCERNS FOR ADRENAL CRISIS Diagnosis Discharge Diagnosis (1) Acute adrenal insufficiency: Status: Acute Code(s): E27.40 - Unspecified adrenocortical insufficiency Medications at Discharge Home Medications albuterol sulfate 90 mcg/actuation aerosol inhaler (Ventolin HFA) 2 inh inhalation Q4H PRN sob 08/09/22 tizanidine 4 mg tablet 4 mg PO Q8H PRN Spasms 08/09/22 pantoprazole 40 mg tablet,delayed release 40 mg PO DAILY see pcp 02/23/23 atorvastatin 10 mg tablet 10 mg PO DAILY hyperlipidemia 07/24/23 clomipramine 50 mg capsule 100 mg PO BID see pcp 07/24/23 levothyroxine 125 mcg tablet 125 mcg PO DAILY see pcp 07/24/23 alprazolam 0.5 mg tablet 0.5 mg PO TID PRN PRN anxiety 02/16/25 empagliflozin 10 mg tablet (Jardiance) 10 mg PO DAILY see pcp 02/16/25 lamotrigine 100 mg tablet 100 mg PO DAILY see pcp 02/16/25 lurasidone 60 mg tablet 60 mg PO QPM see pcp 02/16/25 topiramate 25 mg tablet 25 mg PO QHS migraine 02/16/25 dexamethasone 0.75 mg tablet 1.5 mg PO Q24H 06/16/25 dexamethasone 1.5 mg tablet 1.5 mg PO DAILY #18 tabs 06/17/25 oxycodone 5 mg tablet 5 mg PO Q4H PRN PRN Pain Score 4-10 3 days #10 tabs 06/17/25 Hospital Course Operations None Procedures None Summary of Care Provided Minutes Spent on Discharge: 33 Hospital Course: Per HPI: SONIA SZYMANSKI, is a 30-year-old female history of Ocean's disease, anxiety, migraines, GERD, hypothyroidism who presented to [facility] ED 06/16/2025 reporting lightheadedness and feeling like she was going into an adrenal crisis. In the ED patient afebrile, heart rate 66 with a blood pressure 102/68 and patient 94% on room air. Labs fairly unrevealing aside from a cortisol that was low at 0.16 despite patient reporting compliance with her medications for Ocean's. She reports she recently saw her correctional officer captain and they were actually going to increase her medicine as they were concerned she was headed towards adrenal crisis which she has yet to pick it up. Patient given a dose of IV hydrocortisone, IV fluids and hospitalist contacted for admission. Patient evaluated at bedside, she reports that she is lightheaded and feels foggy when she tries to sit up or stand up, also has a left sided headache which she reports is where she gets her migraines and thinks it is from all of the stress of this, has had some nausea and diarrhea over the past 2 days and reports that this feels just like previous adrenal crises, also some right upper quadrant pain, again consistent with this. Hospital Course: 1. Adrenal insufficiency?30-year-old female with a history of Davonte's disease presents to the hospital with signs and symptoms of concerning for acute adrenal insufficiency. She was feeling lightheaded and dizzy and was borderline hypotensive with very low cortisol level. She has been having this low cortisol level for the last couple of weeks and her correctional officer captain prescribed her an increased dose of Decadron, she states that she is supposed to take 0.5 mg daily and was increased to 0.75 mg p.o. daily however she has not picked it up yet and so presented to the hospital. She was placed on stress dose hydrocortisone at 50 mg IV 4 times daily. Today she says that she was feeling much better and would like to go home, I discussed with her the possibility of discharge and she expressed understanding the risks and benefits of going home and would still like to go home today. Will plan for Decadron 1.5 mg p.o. daily starting at 3 tablets daily for 3 days and then 2 tablets daily for 3 days then 1 tablet daily for 3 days and then she can resume her correctional officer captain dosing of 0.75 mg p.o. daily. Lab work and vital signs on the day of discharge were all unremarkable and systolic blood pressures have remained above 100 today. She was also complaining about a nonspecific abdominal pain she says that she often times gets epigastric and right upper quadrant abdominal pain intermittently. She does have a history of a cholecystectomy as well as a history of a hysterectomy for endometriosis so 3 days of pain medication were prescribed. 2. History of migraines, depression, anxiety, GERD, hypothyroidism are all chronic medical conditions complicate her care. Her home medications were continued where appropriate. Physical Exam Narrative General: Alert, Oriented x3, Cooperative, No apparent distress HEENT: Atraumatic, PERRLA, EOMI, Normocephalic Oral: Moist Mucosa Neck: Supple, No JVD Lungs: Clear to auscultation, Normal air movement, No rhonchi, No wheeze, No rales Cardiovascular: Regular rate, Regular Rhythm, Normal S1, Normal S2, No murmurs Abdomen: Soft, mildly tender right upper quadrant and epigastric region, Non-Distended, No Hepato-splenomegaly Extremities: No edema, Capillary Refill Less than 3 Seconds Skin: No rashes, No breakdown Musculoskeletal: No Tenderness to Palpation of Joints or Extremities Neurological: No focal neurological deficits, Motor Exam 5/5 strength throughout, Sensory exam intact to light touch and pain Psych/Mental Status: Normal Affect, Appropriate Weight / BMI Weight Weight: 198 lb 3.129 oz Body Mass Index (BMI) 33.0 ABG / Lab / Microbiology Data 06/17/25 06:58 06/17/25 06:58 Laboratory: Laboratory Results - last 24 hr 06/16/25 19:30: Lactic Acid 1.7 06/17/25 06:58: WBC 10.1, RBC 4.47, Hgb 11.2 L, Hct 35.4 L, MCV 79.2 L, MCH 25.1 L, MCHC 31.6 L, RDW Std Deviation 45.8 H, RDW Coeff of Renetta 16.1 H, Plt Count 356, MPV 10.6, Immature Gran % (Auto) 0.400, Neut % (Auto) 76.9 H, Lymph % (Auto) 17.7 L, Yates % (Auto) 4.8, Eos % (Auto) 0.0, Baso % (Auto) 0.2, Absolute Neuts (auto) 7.8 H, Absolute Lymphs (auto) 1.78, Nucleated RBC % 0, Sodium 139, Potassium 3.9, Chloride 106, Carbon Dioxide 21.9, Anion Gap 11, BUN 6, Creatinine 0.72, Estim Creat Clear Calc 124.24, Est GFR (MDRD) Non-Af 114, BUN/Creatinine Ratio 8.7 L, Glucose 89, Calcium 8.1, Iron 52, TIBC 322, Iron Saturation 16.1, Unsaturated IBC 270, Ferritin 41 Microbiology: Microbiology 06/16/25 11:00 Mucosa - Nose SARS-CoV-2, Influenza & RSV (PCR) - Final D/C Instructions Call your doctor if you observe: Fever of 101 or Higher, Shortness of breath, Dizziness, Fainting spells, Swelling in the ankles, Chest pain and Increased palpitations (irregular heartbeat) DC O2, CPAP, BIPAP Needs Home O2 Discharge instructions: No Meaningful Use Info Meaningful Use Meaningful Use Diagnoses (Choose all that apply): None applicable Discharge Plan Admission Admit Date/Time: 06/16/25 17:13 Attending Provider: Mode Christianson Primary Care Provider: Kevin Stauffer Consulting Providers: Mary Wang Discharge Orders/Prescriptions Prescriptions: New oxycodone 5 mg Tablet 5 mg PO Q4H PRN PRN (Reason: Pain Score 4-10) 3 Days Qty: 10 0RF dexamethasone 1.5 mg tablet 1.5 mg PO DAILY Qty: 18 0RF Rx Instructions: take 3 tablets daily for 3 days then 2 tablets daily for 3 days then 1 tablet daily for 3 days then resume regular dosing Continued tizanidine 4 mg tablet 4 mg PO Q8H PRN (Reason: Spasms) Patient Comments: TAKE 1 TABLET BY MOUTH EVERY 8 HOURS NEEDED albuterol sulfate [Ventolin HFA] 90 mcg/actuation HFA aerosol inhaler 2 inh INHALATION Q4H PRN (Reason: sob) Patient Comments: Inhale 2 Puffs as instructed every 4 hours as needed. pantoprazole 40 mg tablet,delayed release (DR/EC) 40 mg PO DAILY atorvastatin 10 mg tablet 10 mg PO DAILY Patient Comments: TAKE 1 TABLET BY MOUTH ONCE DAILY levothyroxine 125 mcg tablet 125 mcg PO DAILY Patient Comments: Take 1 tablet by mouth once daily. M=S AND 1.5 ON MONDAY clomipramine 50 mg capsule 100 mg PO BID Patient Comments: TAKE 2 CAPSULES BY MOUTH EVERY DAY AT BEDTIME alprazolam 0.5 mg tablet 0.5 mg PO TID PRN PRN (Reason: anxiety) topiramate 25 mg tablet 25 mg PO QHS lurasidone 60 mg tablet 60 mg PO QPM lamotrigine 100 mg tablet 100 mg PO DAILY Jardiance 10 mg tablet 10 mg PO DAILY dexamethasone 0.75 mg tablet 1.5 mg PO Q24H Referrals / Follow Up: Kevin Stauffer MD [Primary Care Provider] - 06/18/25 11:00 am Disposition Disposition (needs filled in before D/C Order can be placed): Home, Self Care Charges/Coding Visit Charges Inpatient E&M: 42316 Disch Hosp >30min
== END 2025-06-17 15:39 | disposition home or self-care (01) ==
LOC: ED 10:45 → MS3 17:30
PROVIDERS: Admitting Provider Internal Medicine; Emergency Provider Emergency Medicine; PCP Family Medicine; Visit Provider Family Medicine
DX: E27.1 Primary adrenocortical insufficiency (principal); E11.43 Type 2 diabetes mellitus with diabetic autonomic (poly)neuropathy; Z79.84 Long term (current) use of oral hypoglycemic drugs; Z79.890 Hormone replacement therapy; Z87.891 Personal history of nicotine dependence; K21.9 Gastro-esophageal reflux disease without esophagitis; F41.9 Anxiety disorder, unspecified; J45.20 Mild intermittent asthma, uncomplicated; K31.84 Gastroparesis; Z79.899 Other long term (current) drug therapy; E03.9 Hypothyroidism, unspecified; G43.909 Migraine, unspecified, not intractable, without status migrainosus; F32.A Depression, unspecified
CPT/HCPCS: 36415; 80048; 81001; 82010; 82533; 82728; 83540; 83550; 83605; 85025; 85610; 85730; 87631; 96361; 96374; 96375; 96376; 99221; 99285; A4216; G0378; J2405

== ENCOUNTER 2025-07-20 13:05 | Observation (INO) | payer MEDICAID, SELFPAY ==
--- OUTSIDE RECORDS SUMMARY | 2025-07-19 10:29 | XMS RPT_ITS ---
Author Name Auto Generated Organization OHIP Support Name Relationship Address Phone TRINH SZYMANSKI Next of Kin [address] [place] [address] + TRINH SZYMANSKI Next of Kin [address] [place] [place] [address] Unavailable NOT GIVEN Next of Kin [place]available TRINH SZYMANSKI Next of Kin [address] [place] [place] [address] + TRINH SZYMANSKI Next of Kin [address] [place] [address] Unavailable NOT GIVEN Next of [place] TRINH SZYMANSKI Next of Kin [address] [facility] [place] [address] + TRINH SZYMANSKI Next of Kin [address] [place] [place] [address] Unavailable NOT GIVEN Next of Kin [place] Un[place] TRINH SZYMANSKI Next of Kin [address] [place] [address] + TRINH SZYMANSKI Next of Kin [address] [facility] [place] [address] Unavailable NOT GIVEN Next of Kin [place]available TRINH SZYMANSKI Next of Kin [address] [facility] [place] [address] + TRINH SZYMANSKI Next of Kin [address] [place] [address] Unavailable NOT GIVEN Next of [place] Un[place] TRINH SZYMANSKI Next of Kin [address] [facility] [place] [address] + NESSA TRINH Next of Kin [address] [place] [address] Unavailable NOT GIVEN [facility] [place] Un[place] NESSA TRINH Next of Kin [address] [place] [address] + NESSA TRINH Next of Kin [address] [place] [address] Unavailable NOT GIVEN Next of Kin [place]available NESSA TRINH Next of Kin [address] [place] [address] + NESSA TRINH Next of Kin [address] [place] [address] Unavailable NOT GIVEN Next of Kin [place], [place] Unavailable NESSAKHURRAMRY Next of Kin [address] [place] [address] + NESSA TRINH Next of Kin [address] [place] [address] Unavailable NOT GIVEN Next of Kin [place] Unavailable NESSAELISEOTRINH Next of Kin [address] [place] [address] + NESSA TRINH Next of Kin [address] [place] [address] Unavailable NOT GIVEN Next of Kin [place], [place] Unavailable Care Team Providers Care Special Education Professional Name Role Phone RODNEY MACE JR Admitting Unavailable RODNEY MACE JR Attending Unavailable RODNEY MACE JR Primary Care Unavailable KEVIN BRADLEY MD Referring Unavailable KEVIN BRADLEY MD Consulting Unavailable PROVIDER, UNKNOWN Consulting Unavailable KALANI DIAZ MD Attending Unavailable KALANI DIAZ MD Primary Care Unavailable KALANI DIAZ MD Admitting Unavailable KEVIN BRADLEY MD Consulting Unavailable KEVIN BRADLEY MD Referring Unavailable PROVIDER, UNKNOWN Consulting Unavailable MATTHIAS LEANDRO C Primary Care Unavailable KEVIN BRADLEY MD Referring Unavailable MATTHIAS LEANDRO Daysi Admitting Unavailable KEVIN BRADLEY MD Consulting Unavailable MATTHIAS LEANDRO C Attending Unavailable PROVIDER, UNKNOWN Consulting Unavailable RIZZO, LEANDRO C Primary Care Unavailable MATTHIAS LEANDRO C Admitting Unavailable KEVIN BRADLEY MD Consulting Unavailable KEVIN BRADLEY MD Referring Unavailable MATTHIAS LEANDRO C Attending Unavailable PROVIDER, UNKNOWN Consulting Unavailable RODNEY MACE JR Admitting Unavailable RODNEY MACE JR Attending Unavailable RODNEY MACE JR Primary Care Unavailable MIRNA, KEVIN PRO Consulting Unavailable MIRNA, KEVIN PRO Referring Unavailable PROVIDER, UNKNOWN Consulting Unavailable BRYCE JUSTIN Attending Unavailable BRYCE JUSTIN Primary Care Unavailable BRYCE JUSTIN Admitting Unavailable MIRNA, KEVIN PRO Consulting Unavailable MIRNA, KEVIN PRO Referring Unavailable PROVIDER, UNKNOWN Consulting Unavailable RODNEY MACE JR Attending Unavailable RODNEY MACE JR Primary Care Unavailable RODNEY MACE JR Admitting Unavailable MIRNA, KEVIN PRO Consulting Unavailable MIRNA, KEVIN PRO Referring Unavailable PROVIDER, UNKNOWN Consulting Unavailable KEVIN GARCIA Attending Unavailable KEVIN GARCIA Primary Care Unavailable KEVIN GARCIA Admitting Unavailable MIRNA, KEVIN PRO Consulting Unavailable MIRNA, KEVIN PRO Referring Unavailable PROVIDER, UNKNOWN Consulting Unavailable LEANDRO RIZZO Admitting Unavailable MIRNA, KEVIN PRO Consulting Unavailable MIRNA, KEVIN PRO Referring Unavailable LEANDRO RIZZO Attending Unavailable LEANDRO RIZZO Primary Care Unavailable PROVIDER, UNKNOWN Consulting Unavailable ANJU VILLAGRAN DO Attending Unavailable ANJU VILLAGRAN DO Primary Care Unavailable ANJU VILLAGRAN DO Admitting Unavailable MIRNA, KEVIN PRO Referring Unavailable MIRNA, KEVIN PRO Consulting Unavailable PROVIDER, UNKNOWN Consulting Unavailable KEVIN BRADLEY Primary Care Unavailable TRINA DAILY Referring Unavailable TRINA DAILY Attending Unavailable KEVIN BRADLEY Primary Care Unavailable TRINA DAILY Referring Unavailable TRINA DAILY Attending Unavailable KEVIN BRADLEY Attending Unavailable KEVIN BRADLEY Primary Care Unavailable KEVIN BRADLEY Referring Unavailable KEVIN BRADLEY Primary Care Unavailable KEVIN BRADLEY Referring Unavailable MIRNA, KEVIN Prajapati Primary Care Unavailable MIRNA, KEVIN Prajapati Primary Care Unavailable KEVIN BRADLEY Attending Unavailable KEVIN BRADLEY Primary Care Unavailable TRINA DAILY Attending Unavailable KEVIN BRADLEY Primary Care Unavailable BECKIE BEAR Attending Unavaila ble KEVIN BRADLEY Primary Care Unavailable TRINA DAILY Attending Unavailable TRINA DAILY Referring Unavailable TRINA DAILY Attending Unavailable KEVIN BRADLEY Primary Care Unavailable TRINA DAILY Referring Unavailable KEVIN BRADLEY Primary Care Unavailable KEVIN BRADLEY Attending Unavailable TRINA DAILY Attending Unavailable KEVIN BRADLEY Primary Care Unavailable TRINA DAILY Referring Unavailable MIRNA, KEVIN Prajapati Attending Unavailable KEVIN BRADLEY Primary Care Unavailable PROBLEMS DATE TYPE CONDITION / CODE ATTENDING STATUS [facility] 01/18/2022 Active Graves disease / E05.00(ICD-10) NA Active [facility] 06/09/2025 Active Anemia, unspecif ied type / D64.9(ICD-10) NA Active [facility] 06/09/2025 Active Adrenal crisis ( HCC) / E27.2(ICD-10) NA Active [facility] 06/09/2025 Active Severe episode o f recurrent major depressive disorder, without psychotic features (HCC) / F33.2(ICD-10) KEVIN BRADLEY [facility] 06/09/2025 Active Type 2 diabetes mellitus with hypoglycemia without coma, without long-term current use of insulin ([facility]) / E11.649(ICD-10) KEVIN BRADLEY [facility] 08/15/2022 Active SLE (systemic teo pus erythematosus related syndrome) ([facility]) / M32.9(ICD-10) KEVIN BRADLEY [facility] 08/15/2022 Active Post-surgical hypothyroidism / E89.0(ICD-10) KEVIN BRADLEY [facility] 08/14/2022 Active Adrenal insuffic iency (Stewart's disease) ([facility]) / E27.1(ICD-10) KEVIN BRADLEY [facility] 01/18/2022 Active Esophagitis / K20.90(ICD-10) KEVIN BRADLEY [facility] 01/18/2022 Active Seizure-like act ivity ([facility]) / R56.9(ICD-10) KEVIN BRADLEY [facility] 06/27/2017 Active Mild intermitten t asthma without complication ([facility]) / J45.20(ICD-10) KEVIN BRADLEY Active [facility] 06/09/2025 Active Contusion of mul tiple sites of left shoulder and upper arm, subsequent encounter / S40.012D(ICD-10) KEVIN BRADLEY Active [facility] 06/09/2025 Active Contusion of mul tiple sites of left shoulder and upper arm, subsequent encounter / S40.022D(ICD-10) KEVIN BRADLEY [facility] 06/09/2025 Active Contusion of lef t hip, subsequent encounter / S70.02XD(ICD-10) KEVIN BRADLEY Active [facility] 02/05/2023 Active Major depressive disorder, recurrent episode, moderate (HCC) / F33.1(ICD-10) TRINA DAILY [facility] 02/05/2023 Active Mixed obsessiona l thoughts and acts / F42.2(ICD-10) TRINA DAILY [facility] 02/05/2023 Active Chronic post-tra umatic stress disorder (PTSD) / F43.12(ICD-10) TRINA DAILY [facility] 12/26/2022 Active Panic disorder w ith agoraphobia / F40.01(ICD-10) TRINA DAILY [facility] 04/02/[address]ors / Z65.8(ICD-10) TRINA DAILY [facility] 04/02/2025 Active Encounter for lo ng-term (current) use of medications / Z79.899(ICD-10) TRINA DAILY [facility] 02/05/2023 Active OLGA (generalized anxiety disorder) / F41.1(ICD-10) KEVIN BRADLEY [facility] 08/15/2022 Active Prediabetes / R73.03(ICD-10) KEVIN BRADLEY Active [facility] 08/15/2022 Active Recurrent major depression in partial remission / F33.41(ICD-10) KEVIN BRADLEY Active [facility] 08/15/2022 Active Other migraine w ithout status migrainosus, intractable / G43.819(ICD-10) KEVIN BRADLEY [facility] 01/18/2022 Active Mixed anxiety de pressive disorder / F41.8(ICD-10) KEVIN BRADLEY Active [facility] 09/13/2021 Active Migraine variant with headache / G43.809(ICD-10) KEVIN BRADLEY Active [facility] 09/13/2021 Active Weakness / R53.1(ICD-10) KEVIN BRADLEY Active [facility] 2025 Active Upper respirator y tract infection, unspecified type / J06.9(ICD-10) KEVIN BRADLEY Active [facility] PROCEDURES No Procedure Records Found RESULTS URINALYSIS Collected: 2:33 PM Status: F Source: [facility] TYPE CODE TESTS RESULT OUT OF RANGE REFERENCE UNITS LAB URINALYSIS(KARMA NC) URINALYSIS Result Comment: URINALYSIS LAB Specimen Type(LOINC) Specimen Type R LAB Color(LOINC) Color p.yel NORMAL: YELLOW LAB Clarity(LOINC) Clarity clear PEARL L: CLEAR LAB ph(LOINC) ph 7 NORMAL: 5.0-8.0 LAB Protein(LOINC) Protein NEG PEARL L: NEGATIVE LAB Glucose(LOINC) Glucose 1000 Abnormal PEARL L: NORMAL LAB Ketone(LOINC) Ketone NEG NORMAL : NEGATIVE LAB Bilirubin(LOIN C) Bilirubin NEG NORMAL: NEGATIVE LAB Blood(LOINC) Blood NEG NORMAL: NEGATIVE LAB Urobilinog(KARMA NC) Urobilinog NORM NORMAL: NORMAL LAB Sp [place](LOINC) Sp [place] 1.010 NORMAL: 1.010-1.030 LAB Nitrite(LOINC) Nitrite NEG PEARL L: NEGATIVE LAB Leukocytes(KARMA NC) Leukocytes NEG NORMAL: NEGATIVE LAB Microscopic(LO INC) Microscopic NOT INDICATED Performed By: #### [id number] ## ## [facility],[address] [place] [address] RESPIRATORY PANEL PCR (POM) Collected: 07/19/2025 11: 00 AM Status: F Source: [facility] TYPE CODE TESTS RESULT OUT OF RANGE REFERENCE UNITS LAB RESPIRATORY PANEL PCR (POM)(LOINC) RESPIRATORY PANEL PCR (POM) Result Comment: RESPIRATORY PANEL FLEX PCR LAB ADENOVIRUS(LOINC ) ADENOVIRUS NEGATIVE NORMAL: NEGATIVE LAB H. METAPNEUMOVIRUS( LOINC) H. METAPNEUMOVIRUS NEGATIVE NORMAL: NEGATIVE LAB Influenza A(LOINC) Influenza A NEGATIVE NORMAL: NEGATIVE LAB INFLUENZA A H1(LOINC) INFLUENZA A H1 NEGATIVE NORMAL: NEGATIVE LAB INFLUENZA A H3(LOINC) INFLUENZA A H3 NEGATIVE NORMAL: NEGATIVE LAB Influenza B(LOINC) Influenza B NEGATIVE NORMAL: NEGATIVE LAB PARAINFLUENZA 1(LOINC) PARAINFLUENZA 1 NEGATIVE NORMAL: NEGATIVE LAB PARAINFLUENZA 2(LOINC) PARAINFLUENZA 2 NEGATIVE NORMAL: NEGATIVE LAB PARAINFLUENZA 3(LOINC) PARAINFLUENZA 3 NEGATIVE NORMAL: NEGATIVE LAB PARAINFLUENZA 4(LOINC) PARAINFLUENZA 4 NEGATIVE NORMAL: NEGATIVE LAB RSV A(LOINC) RSV A NEGATIVE NORMAL: NEGATIVE LAB RSV B(LOINC) RSV B NEGATIVE NORMAL: NEGATIVE LAB RHINOVIRUS(LOINC ) RHINOVIRUS NEGATIVE NORMAL: NEGATIVE LAB B. PARAPERTUSSIS(LO INC) B. PARAPERTUSSIS NEGATIVE NORMAL: NEGATIVE LAB B. HOLMESII(LOINC) B. HOLMESII NEGATIVE NORMAL: NEGATIVE LAB B. PERTUSSIS(LOINC) B. PERTUSSIS NEGATIVE NORMAL: NEGATIVE LAB SEND TO IC?(LOINC) SEND TO IC? NO Result Comment: THIS ASSAY H BEEN VALIDATED IN THE [facility] FOR USE WITH NASOPHARYNGEAL SPECIMENS IN [facility]. INTERPRETIVE DATA THE [employer] RESPIRATORY PATHOGENS FLEX NUCLEIC ACID TEST (RP FLEX) IS A MULTIPLEXED QUALITATIVE TEST INTENDED FOR THE SIMULTANEOUS DETECTION AND IDENTIFICATION OF MULTIPLE VIRAL AND BACTERIAL NUCLEIC ACIDS IN NASOPHARYNGEAL SWABS (HOT WORT SETTLER) OBTAINED FROM INDIVIDUALS SUSPECTED OF RESPIRATORY TRACT INFECTION. THE TEST IS PERFORMED ON THE AUTOMATED [employer] SYSTEM UTILIZING REVERSE FARROWING MANAGER (RT), POLYMERASE CHAIN REACTION (PCR), AND MICROARRAY HYBRIDIZATION TO DETECT GENE SEQUENCES OF THE FOLLOWING ORGANISM TYPES AND SUBTYPES: ADENOVIRUS, HUMAN METAPNEUMOVIRUS,INFLUENZA A,INFLUENZA A (SUBTYPE H1), INFLUENZA A (SUBTYPE H3), INFLUENZA B,PARAINFLUENZA 1,PARAINFLUENZA 2, PARAINFLUENZA 3, PARAINFLUENZA 4, RESPIRATORY SYNCYTIAL VIRUS A,RESPIRATORY SYNCYTIAL VIRUS B, RHINOVIRUS,BORDETELLA PARAPERTUSSIS/BRONCHISEPTICA,BORDETELLA HOLMESII,AND BORDETELLA PERTUSSIS. DETECTING AND IDENTIFYING SPECIFIC VIRAL AND BACTERIAL NUCLEIC ACIDS FROM INDIVIDUALS EXHIBITING SIGNS AND SYMPTOMS OF RESPIRATORY INFECTION AIDS IN THE DIAGNOSIS OF RESPIRATORY INFECTION, IF USED IN CONJUNCTION WITH OTHER CLINICAL AND LABORATORY FINDINGS. THE RESULTS OF THIS TEST SHOULD NOT BE USED THE SOLE BASIS FOR DIAGNOSIS, TREATMENT, OR PATIENT MANAGEMENT DECISIONS. NEGATIVE RESULTS IN THE PRESENCE OF A RESPIRATORY ILLNESS DO NOT PRECLUDE RESPIRATORY INFECTION AND MAY BE DUE TO INFECTION WITH PATHOGENS THAT ARE NOT DETECTED BY THIS TEST OR LOWER RESPIRATORY TRACT INFECTION THAT IS NOT DETECTED BY AN HOT WORT SETTLER SPECIMEN. CONVERSELY, POSITIVE RESULTS DO NOT RULE-OUT INFECTION OR CO-INFECTION WITH ORGANISMS NOT DETECTED BY RP FLEX. THE AGENT(S) DETECTED MAY NOT BE THE DEFINITE CAUSE OF DISEASE. THE USE OF ADDITIONAL LABORATORY TESTING AND CLINICAL PRESENTATION MAY BE NECESSARY TO ESTABLISH A FINAL DIAGNOSIS OF RESPIRATORY INFECTION. CLINICAL EVALUATION INDICATES A LOWER SENSITIVITY SPECIFIC TO RP FLEX FOR THE DETECTION OF RHINOVIRUS. IF INFECTION WITH RHINOVIRUS IS SUSPECTED, NEGATIVE SAMPLES SHOULD BE CONFIRMED USING AN ALTERNATIVE METHOD. PERFORMANCE CHARACTERISTICS FOR INFLUENZA A WERE ESTABLISHED WHEN INFLUENZA A/H1 (2009 PANDEMIC) AND A/H3 WERE THE PREDOMINANT INFLUENZA A VIRUSES IN CIRCULATION. RP FLEX MAY NOT DETECT NOVEL INFLUENZA A STRAINS. IF INFECTION WITH A NOVEL INFLUENZA A VIRUS IS SUSPECTED BASED ON CURRENT CLINICAL AND EPIDEMIOLOGICAL SCREENING CRITERIA RECOMMENDED BY PUBLIC HEALTH AUTHORITIES, SPECIMENS SHOULD BE COLLECTED WITH APPROPRIATE INFECTION CONTROL PRECAUTIONS USED SPECIFICALLY FOR NOVEL VIRULENT INFLUENZA VIRUSES AND SENT TO APPROPRIATE HEALTH AUTHORITIES FOR TESTING. VIRAL CULTURE SHOULD NOT BE ATTEMPTED IN THESE CASES UNLESS A BIOSAFETY LEVEL (BSL) 3+ FACILITY IS AVAILABLE TO RECEIVE AND CULTURE SPECIMENS. Performed By: #### [id number] ## ## [place] [address] RSV Observed: 07/19/2025 11:00 AM Status: F Source: [facility] RSV NEGATIVE INTERNAL NEG QC PASS INTERNAL POS QC PASS EXTERNAL QC DONE? YES THIS TESTS IS INTENDED FOR IN VITRO DIAGNOSTIC USE TO AID IN THE DIAGNOSIS OF RESPIRATORY SYNCTYIAL VIRUS INFECTIONS IN AND PEDIATRIC PATIENTS UNDER THE AGE OF 5. IT IS RECOMMENDED THAT NEGATIVE TEST RESULTS BE CONFIRMED BY CELL CULTURE. Performed By: #### [id number] ## ## [place] [id number] CORONAVIRUS (SARS) ANTIGEN TEST Collect ed: 07/19/2025 11:00 AM Status: F Source: [facility] TYPE CODE TESTS RESULT OUT OF RANGE REFERENCE UNITS LAB SARS ANTIGEN(LOINC) SARS ANTIGEN NEGATIVE NORMAL: NEGATIVE LAB INTERNAL CONTROL(LOINC) INTERNAL CONTROL PASS LAB EXTERNAL QC DONE?(LOINC) EXTERNAL QC DONE? YES LAB SEND TO IC?(LOINC) SEND TO IC? NO Result Comment: SARS-CoV-2 THIS TEST IS BEING USED UNDER THE FDA EUA PROCEDURE. THIS ASSAY HAS BEEN VALIDATED AT [facility] FOR USE WITH NASAL AND NASOPHARYNGEAL SWAB SPECIMENS. INTERPRETIVE DATA TEST RESULTS SHOULD ALWAYS BE CONSIDERED IN THE CONTEXT OF CLINICAL OBSERVATIONS AND EPIDEMIOLOGICAL DATA IN MAKING FINAL DIAGNOSIS AND PATIENT MANAGEMENT DECISIONS. PATIENT MANAGEMENT SHOULD FOLLOW CURRENT CDC GUIDELINES. THE ANATOLIY SARS ANTIGEN LESTER DOES NOT DIFFERENTIATE BETWEEN SARS-CoV & SARS-CoV-2. A POSITIVE TEST RESULT INDICATES THE PRESENCE OF SARS-CoV-2 NUCLEOCAPSID PROTEIN ANTIGEN, AND THE PATIENT IS INFECTED WITH THE VIRUS AND PRESUMED TO BE CONTAGIOUS. A NEGATIVE TEST RESULT FOR THIS TEST MEANS THAT SARS-CoV-2 NUCLEOCAPSID PROTEIN ANTIGEN WAS NOT PRESENT IN THE SPECIMEN ABOVE THE LIMIT OF DETECTION. HOWEVER, A NEGATIVE RESULT DOES NOT RULE OUT COVID-19 AND SHOULD NOT BE USED THE SOLE BASIS FOR TREATMENT OR PATIENT MANAGEMENT DECISIONS. A NEGATIVE RESULT DOES NOT EXCLUDE THE POSSIBILITY OF COVID-19. NEGATIVE RESULTS, FROM PATIENTS WITH SYMPTOM ONSET BEYOND FIVE DAYS, SHOULD BE TREATED PRESUMPTIVE AND CONFIRMATION WITH A MOLECULAR ASSAY, IF NECESSARY, FOR PATIENT MANAGEMENT, MAY BE PERFORMED. WHEN DIAGNOSTIC TESTING IS NEGATIVE, THE POSSIBLILTY OF A FALSE NEGATIVE RESULT SHOULD BE CONSIDERED IN THE CONTEXT OF A PATIENT'S RECENT EXPOSURES AND THE PRESENCE OF CLINICAL SIGNS AND SYMPTOMS CONSISTENT WITH COVID-19. THE POSSIBILITY OF A FALSE NEGATIVE RESULT SHOULD ESPECIALLY BE CONSIDERED IF THE PATIENT'S RECENT EXPOSURES OR CLINICAL PRESENTATION INDICATE THAT COVID-19 IS LIKELY, AND DIAGNOSTIC TESTS FOR OTHER CAUSES OF ILLNESS (e.g., OTHER RESPIRATORY ILLNESS) ARE NEGATIVE. IF COVID-19 IS STILL SUSPECTED BASED ON EXPOSURE HISTORY TOGETHER WITH OTHER CLINICAL FINDINGS, RE-TESTING SHOULD BE CONSIDERED BY HEALTHCARE PROVIDERS IN CONSULTATION WITH PUBLIC HEALTH AUTHORITIES. Performed By: #### [id number] ## ## [facility],[address] [place] [address] INFLUENZA VIRUS RAPID A/B Observed: 06/24 11:00 AM Status: F Source: [facility] INFLUENZA A NEGATIVE INFLUENZA B NEGATIVE INTERNAL NEG QC PASS INTERNAL POS QC PASS EXTERNAL QC DONE? YES SEND TO IC? AGNIESZKA NEGATIVE TEST RESULT DOES NOT EXCLUDE INFECTION WITH INFLUENZA A OR B. THEREFORE, THE RESULTS OBTAINED FROM THIS FLU TEST SHOULD BE USED IN CONJUCTION WITH CLINICAL FINDINGS TO MAKE AN ACCURATE DIAGNOSIS. A POSITIVE RESULT DOES NOT RULE OUT CO-INFECTIONS WITH OTHER PATHOGENS OR IDENTIFY ANY SPECIFIC INFLUENZA A VIRUS SUBTYPE.CO-INFECTION WITH INFLUENZA A AND B IS RARE. IT IS RECOMMENDED THAT DUAL POSITIVE RESULTS BE CONFIRMED BY VIRAL CULTURE OR AN FDA-CLEARED INFLUENZA A AND B MOLECULAR ASSAY. INDIVIDUALS WHO HAVE RECEIVED NASALLY ADMINISTERED INFLUENZA A VACCINE MAY TEST POSITIVE IN COMMERCIALLY AVAILABLE INFLUENZA RAPID DIAGNOSTIC TESTS FOR UP TO THREE DAYS. RESULT CRITICAL? NO Performed By: #### [id number] ## ## [address] [address] LACTATE Collected: 10:56 AM Status: F Source: [facility] TYPE CODE TESTS RESULT OUT OF RANGE REFERENCE UNITS LAB LACTATE(LOINC) LACTATE 1.8 0.4 - 2.0 mmol/L Performed By: #### [id number] ## ## [place] [id number] TROPONIN Collected: 10:55 AM Status: F Source: [facility] TYPE CODE TESTS RESULT OUT OF RANGE REFERENCE UNITS LAB HS TROPONIN(LOINC) HS TROPONIN <4.0 0.0 - 51.4 pg/mL Performed By: #### [id number] ## ## [address] [address] CBC + DIFF Collected: 10:55 AM Status: F Source: [facility] TYPE CODE TESTS RESULT OUT OF RANGE REFERENCE UNITS LAB CBC + DIFF(LOINC) CBC + DIFF Result Comment: CBC-COMPLETE BLOOD COUNT LAB WBC(LOINC) WBC 9.7 4.5 - 10.8 x 10EE3/UL LAB RBC(LOINC) RBC 4.87 4.10 - 5.30 x 10EE6/UL LAB HEMOGLOBIN(KARMA NC) HEMOGLOBIN 12.2 12.0 - 16.0 g/dl LAB HEMATOCRIT([facility] NC) HEMATOCRIT 36.8 34.0 - 46.0 % LAB MCV(LOINC) MCV 76 Low 80 - 99 fl LAB MCH(LOINC) MCH 25 Low 27 - 33 pg LAB MCHC(LOINC) MCHC 33 32 - 36 X10 3 LAB RDW/CV(LOINC) RDW/CV 16.6 High 12.0 - 15.6 % LAB PLATELET(LOINC ) PLATELET 421 150 - 450 x10EE3/UL LAB MPV(LOINC) MPV 7.4 6.6 - 10.5 fl Result Comment: AUTOMATED DI FFERENTIAL LAB NEUT %(LOINC) NEUT % 58.8 46.0 - 76.0 % LAB LYMPH %(LOINC) LYMPH % 32.4 20.0 - 45.0 % LAB MONOS %(LOINC) MONOS % 8.2 0.0 - 10.0 % LAB EO %(LOINC) EO % 0.4 0.0 - 7.0 % LAB BASO %(LOINC) BASO % 0.3 0.0 - 2.0 % LAB Lymph #(LOINC) Lymph # 3.14 High 0.80 - 2.80 x10EE 3/UL LAB Neut #(LOINC) Neut # 5.71 1.50 - 7.10 x10EE3 /UL LAB Cannon #(LOINC) Cannon # 0.79 0.20 - 1.00 x10EE3 /UL LAB EO #(LOINC) EO # 0.03 0.00 - 0.50 x10EE3/U L LAB Baso #(LOINC) Baso # 0.03 0.00 - 0.10 x10EE3 /UL LAB MANUAL DIFF(LOINC) MANUAL DIFF N/A LAB MORPHOLOGY([facility] NC) MORPHOLOGY N/A Performed By: #### [id number] ## ## [place] [id number] TSH Collected: 10:55 AM Status: F Source: [facility] TYPE CODE TESTS RESULT OUT OF RANGE REFERENCE UNITS LAB TSH(LOINC) TSH 2.69 0.35 - 3.74 uIU/ml Performed By: #### [id number] ## ## [place] [id number] CK [CCL] Collected: 5 10:55 AM Status: F Source: [facility] TYPE CODE TESTS RESULT OUT OF RANGE REFERENCE UNITS LAB CK(LOINC) CK 46 42-196 U/L Result Comment: [facility] [address] [place] [id number] Eric Singh III, M.D. [id number] Performed By: #### [id number] ## ## [place] [address],[place] [address] CMP WITH EGFR Collected: 10:55 AM Status: F Source: [facility] TYPE CODE TESTS RESULT OUT OF RANGE REFERENCE UNITS LAB CMP with eGFR(LOINC) CMP with eGFR Result Comment: COMPREHENSIV E METABOLIC PANEL LAB SODIUM(LOINC) SODIUM 137 136 - 145 mmol/l LAB POTASSIUM(LOIN C) POTASSIUM 3.2 Low 3.5 - 5.1 mmol/L LAB CHLORIDE(LOINC ) CHLORIDE 101 98 - 107 mmol/L LAB CO2(LOINC) CO2 31.1 21.0 - 32.0 mmol/L LAB GLUCOSE(LOINC) GLUCOSE 77 74 - 106 mg/dl LAB BUN(LOINC) BUN 9 7 - 18 mg/dl LAB CREATININE(KARMA NC) CREATININE 0.98 0.55 - 1.02 mg/dl LAB AST/SGOT(LOINC ) AST/SGOT 14 13 - 39 U/L LAB ALK PHOS(LOINC) ALK PHOS 105 46 - 116 U/L LAB CALCIUM(LOINC) CALCIUM 8.6 8.5 - 10.1 mg/dl LAB TOTAL PROTEIN(LOINC) TOTAL PROTEIN 7.1 6.4 - 8.2 g/dl LAB ALBUMIN(LOINC) ALBUMIN 3.1 Low 3.4 - 5.0 g/dL LAB GLOBULIN(LOINC ) GLOBULIN 4.0 High 1.5 - 3.8 G/DL LAB A/G RATIO(LOINC) A/G RATIO 0.8 Low 0.9 - 1.6 LAB TOTAL BILI(LOINC) TOTAL BILI 0.7 0.2 - 1.0 mg/dl LAB B/C RATIO(LOINC) B/C RATIO 9 0 - 30 ratio LAB ALT/SGPT(LOINC ) ALT/SGPT 30 16 - 63 U/L LAB ANION GAP(LOINC) ANION GAP 8 Low 10 - 20 mmol/L LAB AGE(LOINC) AGE 30 years LAB eGFR(LOINC) eGFR >60 60 - 999 ML/MINUT E LAB eGFR(AA)(LOINC ) eGFR(AA) >60 60 - 999 ML/MINUT E Result Comment: ACCORDING TO THE NATIONAL KIDNEY DISEASE EDUCATION PROGRAM(NKDE), A NORMAL eGFR IS A VALUE GREATER THAN OR EQUAL TO 60 ML/MIN/1.73 SQ METERS. CHRONIC KIDNEY DISEASE: <60mL/MIN/1.73 SQ METERS KIDNEY FAILURE: <15mL/MIN/1.73 SQ METERS THIS TEST SHOULD ONLY BE USED FOR PATIENTS 18 YEARS OF AGE AND OLDER. Performed By: #### [id number] ## ## [address] [address] LIPASE Collected: 10:55 AM Status: F Source: [facility] TYPE CODE TESTS RESULT OUT OF RANGE REFERENCE UNITS LAB LIPASE(LOINC) LIPASE 21.0 15.0 - 78.0 U/L Result Comment: *PLEASE NOTE THAT RANGES FOR LIPASE HAVE CHANGED OF 10/20/23 DUE TO AN ASSAY UPDATE BY THE PRODUCTION CONTROLLER.THE NEW ASSAY RANGE IS 6-250 U/L, WITH A REFERENCE RANGE OF 16-77 U/L. Performed By: #### [id number] ## ## [address] [address] CK SERPL-CCNC Collected: 10:55 AM Status: F Source: [facility] Order Comment: Specimen Type : BLOOD SPECIMEN Ordering Facility: [facility] Address: [address] [place] [id number] TYPE CODE TESTS RESULT OUT OF RANGE REFERENCE UNITS LAB 2157-6(LOINC) CK SerPl-cCnc 46 42-196 U/L Performed By: #### [id number] ## ## [facility] CLIA [id number] [address] [place] [address] [place] Observed: 06/13/2025 2:37 PM Status: COMPLETED Source: [facility] HNO ID: [id number] Author: BRISEYDA KIM MD Service: ? Author Type: Physician Type: Progress Notes Filed: 06/13/2025 14:48 Note Text: virtual zoom 2:35-2:46 I have communicated my name and active licensure. The patient's identity and physical location were verified at the time of this visit. Either the patient or their legal in store representative has been informed of the risks and benefits of -- and alternatives to -- treatment through a remote evaluation and consents to proceed with the evaluation remotely. 30 year old female who comes for eval of davonte's and hypoglycemia. bs dropping to 52, 53 54. Patient on decadron 0.5 mg/d . Due to the lows she increased to 1 mg/d. Low blood sugars improved with decadron 1 mg/d. Plan decrease deamethasone from 1 mg to 0.75 mg/d Briseyda Kim MD Answers submitted by the patient for this visit: Core Review of Systems (Submitted on 06/11/2025) Fever : No Night sweats: No Recent unintentional weight change: Yes Nasal Congestion: No Hearing Loss: No Vision Disturbance: No A cough: No Difficulty Breathing?: No Chest pain: No Irregular heartbeat: No Leg Swelling: No Nausea: No Diarrhea: No Black tarry stools: No Difficulty Urinating?: No Awaken at Night More Than Once to Urinate?: No Joint pain or stiffness: Yes Muscle aches: Yes Leg or Foot Discomfort at Night?: No A rash: No Dizziness: Yes Headaches: Yes Memory Loss: No Seizures: No CNPN Observed: 06/12/2025 12:00 AM Status: COMPLETED Source: [facility] Telephone (ENDCMN) JAQUELIN SZYMANSKI ([id number]) 1995 F Date Time Provider Department 06/12/25 LITZY RUCKER [facility] During your visit today, we recorded the following information about you: Litzy Rucker RD 06/12/2025 11:25 AM Signed Spoke with patient this morning re: sharing blood sugar readings prior to virtual visit tomorrow with Dr. Kim. Patient states that she is wearing a Cecily CGM. Instructions sent via [employer] for uploading and sharing her data with our office. Patient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 HIGH/URGENT SEVERITY (31281-55) Nurse/IV/IM/Infusions IM/SQ (59615) 482513 1 $0.00 $0.00 Grand Total $0.00 Providers Rodney Mace D.O. Chief Complaint HIP INJURY. Principal Diagnosis Contusion to the left hip. 1 of 2 [facility] JAQUELIN SZYMANSKI, : 1995, , ICD-10 Codes S70.02xA: Contusion of left hip, initial encounter 2 of 2 ED NURSES CLINICAL NOTE Observed: 2024 4:40 PM Status: F Source: [facility] Nurse Narrative - BUDDY SZYMANSKI, : 1995, , Nurse Clinical [address] [address] [phone] 06/06/2025 16:40:00 Patient: JAQUELIN SZYMANSKI Sex: Female : 1995 Age: 30y Disposition: Discharge to Home Disposition Decision Time: 17:54 06/06/2025 Departure Time: 18:06 06/06/2025 TRIAGE Arrived by private vehicle. Historian: (patient). Primary physician (Mirna). ( Pt offers was ran over with a shopping cart at [facility] and knocked over and c/o unable to put pressure on her leg and nauseated). Triage time: 16:39 06/06/2025. Acuity: LEVEL 4. Chief Complaint: LEFT LOWER EXTREMITY PAIN. Injury occurred. This started yesterday. It is described as radiating to the left lower extremity. SEPSIS SCREEN: NEGATIVE. SIRS criteria negative: heart rate greater than 90. No possible sources of infection. -- 16:48 06/06/25 ASIM Rodríguez R.N. 16:45 06/06/25. BP: 122/81 MAP: 95. HR: 109. RR: 17. O2 saturation: 99% Temperature: 97.3 F. Pain level now 9/10. (tylenol 1230- 2 tabs ES). -- 16:45 06/06/25 ASIM Rodríguez R.N. Measurements: 16:45 06/06/25 Wt: 84.4 kg, Ht/Osmar: 65.0 in, BMI: 30.95 -- 16:45 06/06/25 ASIM Rodríguez R.N. Medications: Xanax 0.5 mg tablet: 1 once a day. -- 16:43 06/06/25 ASIM Rodríguez R.N. topiramate 25 mg tablet: 1 once a day. -- 16:43 06/06/25 ASIM Rodríguez R.N. lurasidone 40 mg tablet: 1 once a day. -- 16:43 06/06/25 ASIM Rodríguez R.N. 1 of 4 Nurse Narrative - JAQUELIN SZYMANSKI, : 1995, , levothyroxine 125 mcg tablet: 1 once a day. -- 16:43 06/06/25 ASIM Rodríguez R.N. Jardiance 10 mg tablet: 1 once a day. -- 16:43 06/06/25 ASIM Rodríguez R.N. fludrocortisone 0.1 mg tablet: 1 once a day. -- 16:43 06/06/25 ASIM Rodríguez R.N. eletriptan 40 mg tablet: 1 tablet as directed. (onset and every 2 hours) -- 16:43 06/06/25 ASIM Rodríguez R.N. dexamethasone 0.5 mg tablet: 1 once a day. -- 16:43 06/06/25 ASIM Rodríguez R.N. clomipramine 50 mg capsule: 4 capsule twice a day. (200 mg total) -- 16:43 06/06/25 ASIM Rodríguez R.N. atorvastatin 10 mg tablet: 1 tablet once a day. -- 16:43 06/06/25 ASIM Rodríguez R.N. Aimovig Autoinjector 70 mg/mL subcutaneous auto-injector: 1 once a month. -- 16:43 06/06/25 ASIM Rodríguez R.N. 16:39 06/06/25. Preferred Pharmacy: ([email or web address] [place]). -- 16:48 06/06/25 ASIM Rodríguez R.N. Allergies: Excedrin Migraine -- 16:43 06/06/25 ASIM Rodríguez R.N. Neosporin (sfk-edj-bhyzm) -- 16:43 06/06/25 ASIM Rodríguez R.N. latex -- 16:43 06/06/25 ASIM Rodríguez R.N. azithromycin -- 16:43 06/06/25 ASIM Rodríguez R.N. Problems: nonalcoholic steatohepatitis -- 16:44 06/06/25 ASIM Rodríguez R.N. Stewart's Disease -- 16:44 06/06/25 ASIM Rodríguez R.N. Migraine Headache -- 16:44 06/06/25 ASIM Rodríguez R.N. Grave's Disease -- 16:44 06/06/25 ASIM Rodríguez R.N. Diabetes Mellitus Type 2 -- 16:44 06/06/25 ASIM Rodríguez R.N. Seizure -- 16:44 06/06/25 ASIM Rodríguez R.N. Surgeries: Gallbladder Surgery -- 16:44 06/06/25 ASIM Rodríguez R.N. Appendectomy -- 16:44 06/06/25 ASIM Rodríguez R.N. -- 16:44 06/06/25 ASIM Rodríguez R.N. Total abdominal hysterectomy -- 16:44 06/06/25 ASIM Rodríguez R.N. History 2 of 4 Nurse Narrative - JAQUELIN SZYMANSKI, : 1995, , 16:39 06/06/25. PAST MEDICAL HX: Immunizations: up-to-date. LNMP: No menstrual periods. SOCIAL HX: Never smoker. No alcohol use or drug use. The patient has not traveled outside the [place] Infectious disease exposure: No infectious disease exposure. ABUSE ASSESSMENT: The patient answered yes to the question(s) Do you feel safe in your home? and no to the question(s) Are you afraid to go home?. Abuse denied. SELF HARM ASSESSMENT: Self harm assessment was performed. The patient answered no to the question(s) Have you recently felt down, depressed, or hopeless? and Do you have thoughts of harming or killing yourself?. FALL RISK ASSESSMENT: Fall risk assessment completed. Risk factors identified include patient impairment of mobility. Fall interventions initiated. Patient visible from nurses' station and identified as a fall risk by ID band. -- 16:48 06/06/25 EDT Brianna Rodríguez R.N. Interventions 16:39 06/06/25. Advanced care plan discussed with patient (Ful Code). -- 16:48 06/06/25 EDT Brianna Rodríguez R.N. PHYSICAL ASSESSMENT 17:47 06/06/25. Ambulatory to room. GENERAL / NEURO / PSYCH: Oriented X 4. Alert. Appears in no acute distress. EXTREMITIES: Limited ROM present. Extremity pulses are within normal limits. Neuro-vascular status intact to the extremity. No lower extremity edema. Normal gait. Left hip: tenderness. SKIN: Skin intact. Skin is warm and dry. -- 17:47 06/06/25 VISHALT Javy Zee R.N. NURSING PROGRESS NOTES 17:15 06/06/25. Ondansetron (Zofran) ODT PO 4 mg given. -- 17:15 06/06/25 VISHALT Javy Zee R.N. 17:15 06/06/25. KetorOLAC (Toradol) IM 30 mg given. -- 17:15 06/06/25 VISHALT Javy Zee R.N. DISPOSITION / DISCHARGE 3 of 4 Nurse Narrative - JAQUELIN SZYMANSKI, : 1995, , 18:06 06/06/25. Condition at departure: unchanged. No learning barriers present. Discharge instructions provided and reviewed. Patient verbalized understanding. Written instructions provided in Scottish. The patient was discharged by the physician. The patient was discharged home. The patient left ambulatory and via private vehicle. Patient driving. -- 18:06 06/06/25 EDT Javy Zee R.N. Departure time: 18:06 06/06/2025. -- 18:07 06/06/25 EDT Javy Zee R.N. (Electronically signed by Javy Zee R.N. 06/06/25 18:08:14 EDT) Generated by [facility] 4 of 4 ED ORDER SHEET (CPOE ONLY) Observed: 4:40 PM Status: F Source: [facility] Order Sheet - JAQUELIN SZYMANSKI , : 1995, , Order Sheet [address] [address] [id number] 06/06/2025 Patient: JAQUELIN SZYMANSKI Sex: Female : 1995 Age: 30y MEASUREMENTS: Wt: 84.4 kg, Ht/Osmar: 65.0 in, BMI: 30.95 ALLERGIES: Excedrin Migraine, Neosporin (wwr-vym-yorlf), azithromycin, latex MEDICATION/IV/DRIP/FLUID ORDERS Order Description Priority Entered Acknowledged Completed KetorOLAC (Toradol) IM30 mg 17:03 06/06/2025 17:15 (NOW x1) Rodney Mace D.O. 06/06/2025 Javy Zee R.N. Reason for ordering with alerts: Benefits outweigh risks --17:03 06/06/2025 Rodney Mace D.O. Ondansetron (Zofran) ODT PO4 17:03 06/06/2025 17:15 mg (NOW x1) Rodney Mace D.O. 06/06/2025 Javy Zee R.N. LAB ORDERS Order Description Priority Entered Acknowledged Collected Completed DIAGNOSTIC STUDY ORDERS Order Description Priority Entered Acknowledged Completed CT Hip L wo Cont Stat Stat 17:03 06/06/2025 17:17 Rodney Mace D.O. 06/06/2025 1 of 2 Order Sheet - JAQUELIN SZYMANSKI, : 1995, , Javy Zee R.N. Order Comments: 17:02 06/06/2025: Status: Not . Rodney Mace D.O. Reason for Study: hip trauma STAFF ORDERS Order Description Priority Entered Acknowledged Collected Completed [Electronically signed by Rodney Mace D.O. (06/06/2025 17:54 EDT)] 2 of 2 ED PHYSICIAN CLINICAL REPORT Observed: 0 06/06/2025 4:40 PM Status: F Source: [facility] Narrative - JAQUELIN SZYMANSKI, : 1995, , Physician Clinical [address] [place] [address] [phone] 06/06/2025 16:40:00 Patient: JAQUELIN SZYMANSKI Sex: Female : 1995 Age: 30y Disposition: Discharge Disposition Decision Time: 17:54 06/06/2025 Measurements Wt: 84.4 kg, Ht/Osmar: 65.0 in, BMI: 30.95 Initial Vital Sign Measured Time BP MAP HR RR O2Sat ETCO2 Temp Pain GCS RTS 16:45 06/06/2025 122/81 95 109 17 99% 97.3 F 9 Time Seen: 16:42 06/06/2025. Arrived- By private vehicle. Historian- patient. HISTORY OF PRESENT ILLNESS Chief Complaint: HIP INJURY. The injury occurred yesterday. ( allegedly Was knocked over by a grocery cart). Occurred at a store. The patient complains of moderate pain. No blow to the head. REVIEW OF SYSTEMS NEUROLOGICAL: No numbness, headache or weakness. SKIN: No laceration. : No bladder dysfunction. RESPIRATORY: No difficulty breathing. GI: No nausea or vomiting. EARS: No hearing loss. EYES: No loss of vision. Status: Not . 1 of 5 Narrative - JAQUELIN SZYMANSKI, : 1995, , PAST HISTORY See nurses notes. Stewart's Disease Diabetes Mellitus Type 2 Grave's Disease Migraine Headache nonalcoholic steatohepatitis Seizure Surgeries: Appendectomy Gallbladder Surgery Total abdominal hysterectomy Medications: Aimovig Autoinjector 70 mg/mL subcutaneous auto-injector: 1 once a month. atorvastatin 10 mg tablet: 1 tablet once a day. clomipramine 50 mg capsule: 4 capsule twice a day. (200 mg total) dexamethasone 0.5 mg tablet: 1 once a day. eletriptan 40 mg tablet: 1 tablet as directed. (onset and every 2 hours) fludrocortisone 0.1 mg tablet: 1 once a day. Jardiance 10 mg tablet: 1 once a day. levothyroxine 125 mcg tablet: 1 once a day. lurasidone 40 mg tablet: 1 once a day. topiramate 25 mg tablet: 1 once a day. Xanax 0.5 mg tablet: 1 once a day. Allergies: azithromycin Excedrin Migraine latex Neosporin (ppu-nxe-ghuox) SOCIAL HISTORY 2 of 5 Narrative - JAQUELIN SZYMANSKI, : 1995, , Never smoker. No alcohol use or drug use. ADDITIONAL NOTES The nursing notes have been reviewed. PHYSICAL EXAM Vital Signs: Have been reviewed. Appearance: Alert. Oriented X3. Eyes: Pupils equal, round and reactive to light. EOM intact. CVS: Pulses normal. Respiratory: No respiratory distress. Back: No tenderness. Skin: Skin intact. Skin warm and dry. Extremities: Left hip: moderate tenderness, mild swelling and small ecchymosis located in the lateral aspect of the hip. Neurovascular intact distally. No erythema, laceration or deformity. No limitation in ROM. The left leg is not shortened, externally rotated or internally rotated. Neuro: Oriented X 3. No motor deficit. No sensory deficit. LABS, X-RAYS, AND EKG Diagnostic Study Tests: CT HIP W/O LT Final EXAM Date: 06/06/2025 17:29:00 EDT MsgRcvd: 06/06/2025 17:39 EDT [place] [id number] Patient: JAQUELIN SZYMANSKI Phone#: : 1995 Age: 30 Gender: F Pt. Type: ER Account: [id number] Location: 052 Ordering: RODNEY MACE Exam Date: 06/06/2025/17:18 Family Phys: KEVIN BRADLEY Charge Code: [id number] Physician: [place] Order #: [id number] Dose#: 9.9 mGy 3 of 5 [facility] - JAQUELIN SZYMANSKI, : 1995, , PROCEDURE: CT HIP LT WITHOUT CONTRAST COMPARISON: None. INDICATIONS: Trauma. TECHNIQUE: Multi-planar CT images were created without intravenous contrast. All CT scans at this facility use dose modulation, iterative reconstruction, and/or weight based dosing when appropriate to reduce radiation dose to as low as reasonably achievable. IV CONTRAST: No IV contrast used,ml TOTAL DOSE: 9.9 CTDIvol(mGy) FINDINGS: BONES: Normal. No significant arthropathy or acute abnormality. SOFT TISSUES: Negative. No visible soft tissue swelling. EFFUSION: None visible. OTHER: Negative. CONCLUSION: 1. There is no evidence of acute bone abnormality. Dictated by: Gretchen Espinoza MD on 06/06/2025 at 17:33 Approved by: Gretchen Espinoza MD on 06/06/2025 at 17:35 PROGRESS AND PROCEDURES MEDICAL DECISION MAKING: (Precautions w patient presenting today for re- evaluation of hip pain. She had fall yesterday after allegedly being hit by shopping cart at [employer]. She states it ran her over. Patient states he has been having pain with ambulation. She was seen yesterday and had negative hip x-rays. She states she has a leave work today secondary to pain. She states she has tried ice and an has not helped. She has a antalgic gait. Denies new trauma. No numbness or tingling. Differential includes hip contusion versus hip fracture. We will obtain a CT of the left hip. Patient will be given an I am dose of Toradol as well as Zofran as she states she is nauseous from the pain. CT of the left hip is negative for acute fracture or subluxation. Patient is counseled on findings. I offered her crutches for ambulation but she did not want them. I will send her home with a prescription for Naprosyn and she is given a work note for couple of days.). Disposition: Condition: good. Discharged in good condition. Discharge decision based on the following: patient's condition is stable. CLINICAL IMPRESSION Contusion to the left hip. 4 of 5 Narrative - JAQUELIN SZYMANSKI, : 1995, , DISCHARGE INSTRUCTIONS Follow-up: Follow up with your healthcare provider. Understanding of the discharge instructions verbalized by patient. (Electronically signed by Rodney Mace D.O. 06/06/25 17:54:42 EDT) [facility] ED MED ADMINISTRATION DETAIL Observed: 0 06/06/2025 4:40 PM Status: F Source: [facility] [employer]wardess - JAQUELIN SZYMANSKI, : 1995, , [place] [address] [id number] 06/06/2025 Patient: JAQUELIN SZYMANSKI Sex: Female : 1995 Age: 30y MEASUREMENTS: Wt: 84.4 kg, Ht/Osmar: 65.0 in, BMI: 30.95 ALLERGIES: Excedrin Migraine, Neosporin (dar-efe-ooaif), azithromycin, latex Medication Ordered Medication Administration Date/Time KetorOLAC 17:15 08 KetorOLAC (Toradol) IM 30 mg given. - 17:15 Javy Given (Toradol) IM 30 mg Angel Luis Zee 17:15 06/06/2025 (NOW x1) Javy Zee R.N. Scanned Ondansetron 17:15 08 Ondansetron (Zofran) ODT PO 4 mg given. - 17:15 Given (Zofran) ODT PO 4 Javy Zee R.N. 17:15 06/06/2025 mg (NOW x1) Javy Zee R.N. Scanned [address] CERVICAL W/O CONTRAST Observed: 06/05 7:37 PM Status: F Source: [place] [id number] [place], [place] [address] Patient: JAQUELIN SZYMANSKI Phone#: : 1995 Age: 30 Gender: F Pt. Type: ER Account: [id number] Location: [facility] Ordering: OLIVER CUADRA Exam Date: 06/05/2025/19:21 Family Phys: KEVIN BRADLEY Charge Code: [id number] Physician: [place] Order #: [id number] Dose#: 11.9 mgy PROCEDURE: CT CERVICAL WITHOUT CONTRAST COMPARISON: [facility], CT, CERVICAL W/O CON, 04/11/2024, 16:39. INDICATIONS: Trauma. TECHNIQUE: Multi-planar CT images were created without intravenous contrast. All CT scans at this facility use dose modulation, iterative reconstruction, and/or weight-based dosing when appropriate to reduce radiation dose to as low as reasonably achievable. IV CONTRAST: No IV contrast used,ml TOTAL DOSE: 11.9 CTDIvol(mGy) FINDINGS: Attenuation of the CT beam by the patient's shoulders somewhat limits evaluation of the lower cervical spine. CRANIOCERVICAL AREA: Normal foramen magnum with no Chiari malformation. PARASPINAL AREA: Normal with no visible mass. BONES: Vertebral bodies are maintained in height and alignment. No appreciable fracture or subluxation. Anterior osteophyte present at C5-6. Dens is intact. Lateral masses are symmetric. CERVICAL DISC LEVELS: C2-C3 to C7-T1: No significant disc/facet abnormality, spinal stenosis, or foraminal stenosis. CONCLUSION: 1. No acute osseous abnormality Dictated by: Hailee Alicea MD on 06/05/2025 at 19:43 Approved by: Hailee Alicea MD on 06/05/2025 at 19:46 HIP COMPLETE LT MIN 2 VIEWS W/PELVIS Observed: 06/05/2025 7:36 PM Status: F Source: [address] [address] Patient: JAQUELIN SZYMANSKI Phone#: : 1995 Age: 30 Gender: F Pt. Type: ER Account: [id number] Location: 052 Ordering: OLIVER CUADRA Exam Date: 06/05/2025/19:34 Family Phys: KEVIN BRADLEY Charge Code: [id number] Physician: [place] Order #: [id number] Dose#: PROCEDURE: X-RAY HIP LT COMPLETE MIN 2 VIEWS W/PELVIS COMPARISON: None. INDICATIONS: Trauma. FINDINGS: BONES: Normal. No significant arthropathy or acute abnormality. SOFT TISSUES: Negative. No visible soft tissue swelling. EFFUSION: None visible. OTHER: Moderate stool retention. CONCLUSION: 1. There is no evidence of acute bone abnormality. Dictated by: Gretchen Espinoza MD on 06/06/2025 at 8:49 Approved by: Gretchen Espinoza MD on 06/06/2025 at 8:51 CT BRAIN W/O CONTRAST Observed: 06/05/20 7:36 PM Status: F Source: [place] [address] Patient: JAQUELIN SZYMANSKI Phone#: : 1995 Age: 30 Gender: F Pt. Type: ER Account: [id number] Location: [facility] Ordering: OLIVER CUADRA Exam Date: 06/05/2025/19:21 Family Phys: KEVIN BRADLEY Charge Code: [id number] Physician: [place] Order #: [id number] Dose#: 57.50 mGy PROCEDURE: CT BRAIN WITHOUT CONTRAST COMPARISON: [facility], CT, BRAIN W/O CON, 08/15/2024, 18:11. INDICATIONS: Trauma. TECHNIQUE: CT images were obtained without contrast material. All CT scans at this facility use dose modulation, iterative reconstruction, and/or weight based dosing when appropriate to reduce radiation dose to as low as reasonably achievable. IV CONTRAST: No IV contrast used,0.0ml TOTAL DOSE: 57.50 CTDIvol(mGy) FINDINGS: CEREBRUM: No edema, hemorrhage, mass, or inappropriate atrophy. CEREBELLUM: No edema, hemorrhage, mass, or inappropriate atrophy. BRAINSTEM: No edema, hemorrhage, mass, or inappropriate atrophy. CSF SPACES: Ventricles, cisterns, and sulci are appropriate for age. No hydrocephalus, subarachnoid hemorrhage, or mass. SKULL: No mass or other significant visible lesion. SINUSES: Limited views demonstrate no significant mucosal thickening or fluid. ORBITS: Limited views are unremarkable. OTHER: Negative. CONCLUSION: 1. No appreciable acute intracranial abnormality or interval change. Dictated by: Hailee Alicea MD on 06/05/2025 at 19:39 Approved by: Hailee Alicea MD on 06/05/2025 at 19:42 ED MED ADMINISTRATION DETAIL Observed: 0 06/05/2025 6:54 PM Status: F Source: [facility] [employer]ess - JAQUELIN SZYMANSKI, : 1995, , Medication Administration Record [address] [address] [id number] 06/05/2025 Patient: JAQUELIN SZYMANSKI Sex: Female : 1995 Age: 30y MEASUREMENTS: Wt: 84.4 kg, Ht/Osmar: 65.0 in, BMI: 30.95 ALLERGIES: Excedrin Migraine, Neosporin (rdg-byj-rrqay), azithromycin, latex Medication Ordered Medication Administration Date/Time OxyCODONE-APAP 19:28 06/05 OxyCODONE-APAP 5-325 (Percocet) PO 1 tab given. Given 5-325 (Percocet) PO Allergies verified and confirmed 5 rights. Information reviewed with 19:28 06/05/2025 1 tab (NOW x1, patient including reason for taking this medication. Verbalizes Mile Alas R.N. HIGH ALERT understanding. - 19:28 Mile Alas R.N. Not Scanned MEDICATION) ketorolac (Toradol) 20:50 06/05 ketorolac (Toradol) PO 10 mg given. Allergies verified Given PO 10 mg (NOW x1) and confirmed 5 rights. Information reviewed with patient including 20:50 06/05/2025 reason for taking this medication. Verbalizes understanding. - Mile Alas R.N. 20:51 Mile Alas R.N. Scanned 1 of 1 ED SUPER BILL Observed: 06/05/2025 6:54 PM Status: F Source: [facility] JAQUELIN SZYMANSKI, : 1995, , [address] [address] [id number] 06/05/2025 Patient: JAQUELIN SZYMANSKI Sex: Female : 1995 Age: 30y Item Professional Category Description Facility Code Code Quantity Fee Total Nurse/E/M EMERGENCY 448641 1 $0.00 $0.00 DEPARTMENT VISIT HIGH/URGENT SEVERITY (18736-15) Grand Total $0.00 Providers Oliver Cuadra D.O. Chief Complaint LEFT HIP INJURY. Principal Diagnosis Minor closed head injury. No loss of consciousness. No right cerebral injury or right sided epidural hematoma. No left cerebral injury or left sided epidural hematoma. No cerebellar injury. No brainstem injury. No concussion or skull fracture. [facility] 1995[facility] , Cervical strain. Sprain of the iliofemoral ligament of the left hip. ICD-10 Codes S16.1xxA: Strain of muscle, fascia and tendon at neck level, initial encounter S06.890A: Other specified intracranial injury without loss of consciousness, initial encounter S73.112A: Iliofemoral ligament sprain of left hip, initial encounter 2 of 2 ED PHYSICIAN CLINICAL REPORT Observed: 0 06/05/2025 6:54 PM Status: F Source: [facility] JAQUELIN SZYMANSKI, : 1995, , Physician Clinical Narrative [address] [address] [id number] 06/05/2025 18:54:00 Patient: JAQUELIN SZYMANSKI Sex: Female : 1995 Age: 30y Disposition: Discharge to Home Disposition Decision Time: 20:30 06/05/2025 Departure Time: 20:53 06/05/2025 Measurements Wt: 84.4 kg, Ht/Osmar: 65.0 in, BMI: 30.95 Initial Vital Sign Measured Time BP MAP HR RR O2Sat ETCO2 Temp Pain GCS RTS 18:58 06/05/2025 153/90 111 118 18 100% 97.8 F 8 Time Seen: 18:58 06/05/2025. Arrived- By private vehicle. Historian- patient. HISTORY OF PRESENT ILLNESS Chief Complaint: LEFT HIP INJURY. The injury occurred just prior to arrival. Occurred at a store ([employer]). The patient complains of severe pain. The patient sustained a blow to the head. (ladder fell and struck head/neck). No loss of consciousness. The patient was dazed. REVIEW OF SYSTEMS EARS: No hearing loss. SKIN: No laceration. EYES: No loss of vision. : No bladder dysfunction. RESPIRATORY: No difficulty breathing. GI: No abdominal pain or nausea. PSYCHIATRIC: No depression. NEUROLOGICAL: No numbness or weakness. The patient has had a headache. CVS: No chest pain. Status: Not . 1 of 7 Narrative - NESSAJAQUELIN, : 1995, , PAST HISTORY See nurses notes. Stewart's Disease Diabetes Mellitus Type 2 Grave's Disease Migraine Headache nonalcoholic steatohepatitis Seizure Surgeries: Appendectomy Gallbladder Surgery Total abdominal hysterectomy Medications: Aimovig Autoinjector 70 mg/mL subcutaneous auto-injector: 1 once a month . atorvastatin 10 mg tablet: 1 tablet once a day . clomipramine 50 mg capsule: 4 capsule twice a day . (200 mg total) dexamethasone 0.5 mg tablet: 1 once a day . eletriptan 40 mg tablet: 1 tablet as directed . (onset and every 2 hours) fludrocortisone 0.1 mg tablet: 1 once a day . Jardiance 10 mg tablet: 1 once a day . levothyroxine 125 mcg tablet: 1 once a day . lurasidone 40 mg tablet: 1 once a day . topiramate 25 mg tablet: 1 once a day . Xanax 0.5 mg tablet: 1 once a day . Allergies: azithromycin Excedrin Migraine latex Neosporin (rhy-wce-cxhyj) SOCIAL HISTORY 2 of 7 Narrative - JAQUELIN SZYMANSKI, : 1995, , Never smoker. No alcohol use or drug use. ADDITIONAL NOTES The nursing notes have been reviewed. PHYSICAL EXAM Appearance: Alert. Oriented X3. Appears to be in pain. Head: Left parietal area: mild tenderness and swelling of the posterior aspect of the left parietal area. No erythema, ecchymosis, petechiae, laceration or abrasion. No puncture wound, foreign body or deformity. No avulsion. Eyes: Pupils equal, round and reactive to light. EOM intact. ENT: No dental injury. Pharynx normal. Neck: Moderate muscle spasm of the left posterior neck. Mild vertebral tenderness of the lower cervical spine. No palpable step-off. CVS: Heart sounds normal. Pulses normal. Respiratory: Painless inspiration. Breath sounds normal. Chest nontender. Abdomen: No visible injury. Soft and nontender. Bowel sounds normal. No organomegaly. No mass. Back: No tenderness. ROM normal. Skin: Skin intact. Skin warm and dry. Extremities: Moderate bony tenderness present in the left hip. Left hip: moderate tenderness and mild swelling located in the anterior and lateral aspect of the hip. Limited ROM (diminished flexion and extension). Neurovascular intact distally. No erythema, laceration, abrasion, ecchymosis or puncture wound. No foreign body or deformity. No avulsion. The left leg is not shortened or externally rotated. Gait: Limping gait. Gait not tested due to pain. Neuro: Oriented X 3. No motor deficit. No sensory deficit. LABS, X-RAYS, AND EKG X-Rays: Left hip negative. Diagnostic Study Tests: CT BRAIN W/O CONTRAST Final EXAM Date: 06/05/2025 19:36:00 EDT MsgRcvd: 06/05/2025 19:46 EDT [facility] 3 of 7 JAQUELIN Durham, : 1995, , [address] [address] Patient: JAQUELIN SZYMANSKI Phone#: : 1995 Age: 30 Gender: F Pt. Type: ER Account: [id number] Location: 052 Ordering: OLIVER CUADRA Exam Date: 06/05/2025/19:21 Family Phys: KEVIN BRADLEY Charge Code: [id number] Physician: [place] Order #: [id number] Dose#: 57.50 mGy PROCEDURE: CT BRAIN WITHOUT CONTRAST COMPARISON: [facility], CT, BRAIN W/O CON, 08/15/2024, 18:11. INDICATIONS: Trauma. TECHNIQUE: CT images were obtained without contrast material. All CT scans at this facility use dose modulation, iterative reconstruction, and/or weight based dosing when appropriate to reduce radiation dose to as low as reasonably achievable. IV CONTRAST: No IV contrast used,0.0ml TOTAL DOSE: 57.50 CTDIvol(mGy) FINDINGS: CEREBRUM: No edema, hemorrhage, mass, or inappropriate atrophy. CEREBELLUM: No edema, hemorrhage, mass, or inappropriate atrophy. BRAINSTEM: No edema, hemorrhage, mass, or inappropriate atrophy. CSF SPACES: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 R.N. NURSING PROGRESS NOTES 11:36 05/05/25. BP: 110/70 MAP: 78 mmHg. HR: 88 bpm. -- 16:23 05/05/25 EDT Bryce Torrez R.N. 11:51 05/05/25. BP: 107/76 MAP: 84 mmHg. HR: 84 bpm. -- 16:05/05/25 EDT Bryce Torrez R.N. 12:12 05/05/25. IV NS 0.9 % 1000 mL started in bag#1 1000 mL at 999 mL/hr via Site# 1. Allergies verified and confirmed 5 rights. IV patency established. IV site checked: no pain, redness, or swelling. IV flushed thoroughly pre-medication administration. Information reviewed with patient. -- 12:05/05/25 EDT Bryce Torrez R.N. 12:05/05/25. HYDROmorphone (Dilaudid) IVP 0.5 mg given via Site# 1. Allergies verified and confirmed 5 rights. IV patency established. IV site checked: no pain, redness, or swelling. IV flushed thoroughly pre-medication administration. IVP given by nurse. Information reviewed with patient. Verbalizes understanding. Medication Wastage: 0.5 mg wasted. -- 12:05/05/25 EDT Bryce Torrez R.N. 3 of 5 Nurse Narrative 12:05/05/25. Zofran IVP 4 mg given via Site# 1. Allergies verified and confirmed 5 rights. IV patency established. IV site checked: no pain, redness, or swelling. IV flushed thoroughly pre-medication administration. IVP given by nurse. -- 12:05/05/25 EDT Bryce Torrez R.N. 12:15 05/05/25. Hydrocortisone (Solu-Cortef) IVP 100 mg given via Site# 1. Allergies verified and confirmed 5 rights. IV patency established. IV site checked: no pain, redness, or swelling. IV flushed thoroughly pre-medication administration. IVP given by nurse. Information reviewed with patient. -- 12:15 05/05/25 EDT Bryce Torrez R.N. 12:21 05/05/25. BP: 107/65 MAP: 79 mmHg. HR: 94 bpm. -- 16:23 05/05/25 EDT Bryce Torrez R.N. 12:36 05/05/25. BP: 124/83 MAP: 91 mmHg. HR: 80 bpm. -- 16:24 05/05/25 EDT Bryce Torrez R.N. 12:51 05/05/25. BP: 109/65 MAP: 79 mmHg. HR: 87 bpm. -- 16:24 05/05/25 EDT Bryce Torrez R.N. 12:53 05/05/25. Call light placed in reach. Side rails up. Bed placed in lowest position. -- 12:53 05/05/25 EDT Bryce Torrez R.N. 12:58 05/05/25. Critical value relayed by josie leo (12:57 05/05/2025). Critical value received by katharina kirby. Lactate level: 2.1. ED physician and charge nurse notifed of critical value. -- 12:58 05/05/25 EDT Samantha Snider 13:06 05/05/25. BP: 108/74 MAP: 81 mmHg. HR: 89 bpm. -- 16:24 05/05/25 EDT Bryce Torrez R.N. 13:20 05/05/25. IV NS 0.9 %: Medication Discontinued. bag #1 infused. Total amount infused: 1000 mL. IV patency established. IV site checked: no pain, redness, or swelling. IV flushed thoroughly post-medication administration. -- 15:10 05/05/25 EDT Bryce Torrez R.N. 13:21 05/05/25. BP: 126/80 MAP: 91 mmHg. HR: 87 bpm. -- 16:24 05/05/25 EDT Bryce Torrez R.N. 13:36 05/05/25. BP: 112/65 MAP: 80 mmHg. HR: 85 bpm. -- 16:05/05/25 EDT Bryce Torrez R.N. 13:51 05/05/25. BP: 117/74 MAP: 85 mmHg. HR: 88 bpm. -- 16:05/05/25 EDT Bryce Torrez R.N. 14:36 05/05/25. BP: 117/75 MAP: 88 mmHg. HR: 81 bpm. -- 16:05/05/25 EDT Bryce Torrez R.N. 14:37 05/05/25. HYDROmorphone (Dilaudid) IVP 1 mg given via Site# 1. Allergies verified and confirmed 5 rights. IV patency established. IV site checked: no pain, redness, or swelling. IV flushed thoroughly pre-medication administration. Information reviewed with patient. -- 14:39 05/05/25 EDT Bryce Torrez R.N. 14:51 05/05/25. BP: 118/64 MAP: 82 mmHg. HR: 88 bpm. -- 16:05/05/25 EDT Bryce Torrez R.N. 14:53 05/05/25. IV NS 0.9 % 1000 mL started in bag#2 1000 mL at 999 mL/hr via Site# 1. Allergies verified and confirmed 5 rights. IV patency established. IV site checked: no pain, redness, or swelling. IV flushed thoroughly pre-medication administration. Information reviewed with patient. -- 14:56 05/05/25 EDT Bryce Torrez R.N. 15:06 05/05/25. BP: 111/65 MAP: 78 mmHg. HR: 83 bpm. -- 16:05/05/25 EDT Bryce Torrez R.N. 15:21 05/05/25. BP: 129/87 MAP: 98 mmHg. HR: 87 bpm. -- 16:05/05/25 EDT Bryce Torrez R.N. 15:36 05/05/25. BP: 106/59 MAP: 74 mmHg. HR: 85 bpm. -- 16:24 05/05/25 EDT Bryce Torrez R.N. 15:51 05/05/25. BP: 106/59 MAP: 71 mmHg. HR: 87 bpm. -- 16:24 05/05/25 EDT Bryce Torrez R.N. 16:06 05/05/25. BP: 107/70 MAP: 77 mmHg. HR: 98 bpm. -- 16:24 05/05/25 EDT Bryce Torrez R.N. DISPOSITION / DISCHARGE 4 of 5 Nurse Narrative 12:14 05/05/25. Site #1 started in the right antecubital space with a 20g angiocath with aseptic technique and good blood return; 1 attempt. Blood drawn: rainbow set and agosto tube(s) and cultures x 1. Saline lock flushed with 5 mL saline. -- 12:14 05/05/25 EDT Bryce Torrez R.N. 16:10 05/05/25. IV NS 0.9 %: Medication Discontinued. bag #2 completed upon discharge. Total amount infused: 1000 mL. IV patency established. IV site checked: no pain, redness, or swelling. IV flushed thoroughly post-medication administration. -- 16:27 05/05/25 EDT Bryce Torrez R.N. Departure time: 16:15 05/05/2025. Condition at departure: improved. No learning barriers present. Discharge instructions provided and reviewed with the patient. Patient verbalized understanding. Written instructions provided in Scottish. The patient was discharged by the physician. The patient was discharged home and accompanied by spouse. The patient left ambulatory and via private vehicle. Spouse driving. -- 16:33 05/05/25 EDT Bryce Torrez R.N. 16:15 05/05/25. Site #1 removed upon discharge. Bandage applied. -- 16:31 05/05/25 EDT Bryce Torrez R.N. (Electronically signed by Bryce Torrez R.N. 05/05/25 18:26:13 EDT) [facility] PHYSICIAN CLINICAL REPORT Observed: 0 05/05/2025 11:12 AM Status: F Source: [facility] Narrative Physician Clinical Narrative [address] [place] [address] [phone] 05/05/2025 11:12:00 Patient: JAQUELIN SZYMANSKI [facility]#: [id number] Sex: Female : 1995 Age: 30y Disposition: Discharge to Home Disposition Decision Time: 15:57 05/05/2025 Departure Time: 16:15 05/05/2025 Measurements Wt: 84.4 kg, Ht/Osmar: 65.0 in, BMI: 30.95 Initial Vital Sign Measured Time BP MAP HR RR O2Sat ETCO2 Temp Pain GCS RTS 11:27 05/05/2025 95/75 82 87 16 98% RA 98.0 F 8 Time Seen: 11:41 05/05/2025. Arrived- By private vehicle. Historian- patient. HISTORY OF PRESENT ILLNESS Chief Complaint: ABDOMINAL PAIN. This started yesterday started not feeling well yesterday. States that her glucose levels have been running low in the 40s and 50s and she can not get them up. She feels nauseated has tried to take p.o. fluids orange juice etc. but states that it just taste real yucky. and is still present. Modifying factors- (Feel as weak lightheaded a bit dizzy. She states that she gets episodes of sweating and feeling clammy.). The patient has had nausea and loss of appetite. No vomiting or diarrhea. Similar symptoms previously. Patient has had similar symptoms several times. REVIEW OF SYSTEMS 1 of 10 Narrative EYES: No blurred vision. NEUROLOGICAL: No headache. CONSTITUTIONAL: No fever or chills. : No difficulty with urination, pain with urination or urinary frequency. GI: No constipation. CVS: No chest pain. THROAT: No sore throat. PAST HISTORY See nurses notes. 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 atorvastatin 10 mg tablet: 1 tablet once a day . clomipramine 50 mg capsule: 4 capsule twice a day . (200 mg total) dexamethasone 0.5 mg tablet: 1 once a day . eletriptan 40 mg tablet: 1 tablet as directed . (onset and every 2 hours) fludrocortisone 0.1 mg tablet: 1 once a day . Jardiance 10 mg tablet: 1 once a day . levothyroxine 125 mcg tablet: 1 once a day . lurasidone 40 mg tablet: 1 once a day . topiramate 25 mg tablet: 1 once a day . Xanax 0.5 mg tablet: 1 once a day . Allergies: azithromycin Excedrin Migraine latex 2 of 10 Narrative Neosporin ([id number]) SOCIAL HISTORY Does not use tobacco. No alcohol use. ADDITIONAL NOTES The nursing notes have been reviewed. PHYSICAL EXAM Vital Signs: Have been reviewed. Appearance: Alert. Oriented X3. No acute distress. Patient in mild distress. Eyes: Pupils equal, round and reactive to light. Eyes normal inspection. ENT: Nose normal. Pharynx normal. Neck: Normal inspection. Neck supple. CVS: Normal heart rate and rhythm. Heart sounds normal. Pulses normal. Respiratory: No respiratory distress. Breath sounds normal. Chest nontender. Abdomen: Soft. Mild rebound tenderness diffusely. No guarding or rigidity. Bowel sounds normal. No organomegaly. No mass. Obese. Back: Normal inspection. Skin: Skin warm and dry. Normal skin color. No rash. Normal skin turgor. Extremities: Extremities exhibit normal ROM. No lower extremity edema. Neuro: Oriented X 3. No motor deficit. No sensory deficit. Reflexes normal. LABS, X-RAYS, AND EKG Laboratory Tests: C-REACTIVE PROTEIN Final LENORA: 05/05/2025 12:10:00 EDT MsgRcvd: 05/05/2025 12:54 EDT Lab Test Result Reference Status Received Comments 1.38 mg/dl 05/05/2025 12:54 CRP 0.00 - 0.90 Final Above high normal EDT 3 of 10 Narrative CBC + DIFF Final LENORA: 05/05/2025 12:10:00 EDT MsgRcvd: 05/05/2025 12:42 EDT Lab Test Result Reference Status Received Comments 05/05/2025 12:42 CBC-COMPLETE CBC + DIFF Final EDT BLOOD COUNT 05/05/2025 12:42 WBC 8.8 x 10/UL 4.5 - 10.8 Final EDT 05/05/2025 12:42 RBC 4.96 x 10/UL 4.10 - 5.30 Final EDT 05/05/2025 12:42 HEMOGLOBIN 12.4 g/dl 12.0 - 16.0 Final EDT 05/05/2025 12:42 HEMATOCRIT 37.6 % 34.0 - 46.0 Final EDT 76 fl 05/05/2025 12:42 MCV 80 - 99 Final Below low normal EDT 25 pg 05/05/2025 12:42 MCH 27 - 33 Final Below low normal EDT 05/05/2025 12:42 MCHC 33 X10 3 32 - 36 Final EDT 16.0 % 05/05/2025 12:42 RDW/CV 12.0 - 15.6 Final Above high normal EDT 05/05/2025 12:42 PLATELET 376 x10/UL 150 - 450 Final EDT 05/05/2025 12:42 AUTOMATED MPV 7.5 fl 6.6 - 10.5 Final EDT DIFFERENTIAL 05/05/2025 12:42 NEUT % 66.9 % 46.0 - 76.0 Final EDT 4 of 10 Narrative Lab Test Result Reference Status Received Comments 05/05/2025 12:42 LYMPH % 25.3 % 20.0 - 45.0 Final EDT 05/05/2025 12:42 MONOS % 7.4 % 0.0 - 10.0 Final EDT 05/05/2025 12:42 EO % 0.2 % 0.0 - 7.0 Final EDT 05/05/2025 12:42 BASO % 0.3 % 0.0 - 2.0 Final EDT 05/05/2025 12:42 Lymph # 2.23 x10/UL 0.80 - 2.80 Final EDT 05/05/2025 12:42 Neut # 5.90 x10/UL 1.50 - 7.10 Final EDT 05/05/2025 12:42 Cannon # 0.65 x10/UL 0.20 - 1.00 Final EDT 05/05/2025 12:42 EO # 0.02 x10/UL 0.00 - 0.50 Final EDT 05/05/2025 12:42 Baso # 0.02 x10/UL 0.00 - 0.10 Final EDT 05/05/2025 12:42 MANUAL DIFF N/A New Order EDT 05/05/2025 12:42 MORPHOLOGY N/A New Order EDT CMP with eGFR Final LENORA: 05/05/2025 12:10:00 EDT MsgRcvd: 05/05/2025 12:54 EDT Lab Test Result Reference Status Received Comments 5 of 10 Narrative Lab Test Result Reference Status Received Comments COMPREHENSIVE 05/05/2025 CMP with eGFR Final METABOLIC 12:54 EDT PANEL 05/05/2025 SODIUM 139 mmol/l 136 - 145 Final 12:54 EDT 05/05/2025 POTASSIUM 4.4 mmol/L 3.5 - 5.1 Final 12:54 EDT 05/05/2025 CHLORIDE 102 mmol/L 98 - 107 Final 12:54 EDT 05/05/2025 CO2 28.1 mmol/L 21.0 - 32.0 Final 12:54 EDT 05/05/2025 GLUCOSE 90 mg/dl 74 - 106 Final 12:54 EDT 05/05/2025 BUN 8 mg/dl 7 - 18 Final 12:54 EDT 05/05/2025 CREATININE 0.97 mg/dl 0.55 - 1.02 Final 12:54 EDT 05/05/2025 AST/SGOT 28 U/L 13 - 39 Final 12:54 EDT 05/05/2025 ALK PHOS 105 U/L 46 - 116 Final 12:54 EDT 8.4 mg/dl 05/05/2025 CALCIUM 8.5 - 10.1 Final Below low normal 12:54 EDT TOTAL 05/05/2025 7.9 g/dl 6.4 - 8.2 Final PROTEIN 12:54 EDT 3.2 g/dL 05/05/2025 ALBUMIN 3.4 - 5.0 Final Below low normal 12:54 EDT 6 of 10 Narrative Lab Test Result Reference Status Received Comments 4.7 G/DL 05/05/2025 GLOBULIN Above high 1.5 - 3.8 Final 12:54 EDT normal 0.7 05/05/2025 A/G RATIO 0.9 - 1.6 Final Below low normal 12:54 EDT 05/05/2025 TOTAL BILI 0.9 mg/dl 0.2 - 1.0 Final 12:54 EDT 05/05/2025 B/C RATIO 8 ratio 0 - 30 Final 12:54 EDT 05/05/2025 ALT/SGPT 25 U/L 16 - 63 Final 12:54 EDT 05/05/2025 ANION GAP 13 mmol/L 10 - 20 Final 12:54 EDT 05/05/2025 AGE 30 years Final 12:54 EDT 05/05/2025 eGFR >60 ML/MINUTE 60 - 999 Final 12:54 EDT 7 of 10 Narrative Lab Test Result Reference Status Received Comments ACCORDING TO THE NATIONAL KIDNEY DISEASE EDUCATION PROGRAM(NKDE), A NORMAL eGFR IS A VALUE GREATER THAN OR EQUAL TO 60 ML/MIN/1.73 SQ METERS. 05/05/2025 CHRONIC KIDNEY eGFR(AA) >60 ML/MINUTE 60 - 999 Final 12:54 EDT DISEASE: <60mL/MIN/1.73 SQ METERS KIDNEY FAILURE: <15mL/MIN/1.73 SQ METERS THIS TEST SHOULD ONLY BE USED FOR PATIENTS 18 YEARS OF AGE AND OLDER. LACTATE Final LENORA: 05/05/2025 12:10:00 EDT MsgRcvd: 05/05/2025 12:57 EDT Lab Test Result Reference Status Received Comments 8 of 10 Narrative Lab Test Result Reference Status Received Comments LACTATE 3 HR NOTIFIED TO: _RACHEL 2.1 mmol/L 05/05/2025 05/05/25.1256.CWB. . . LACTATE Above high 0.4 - 2.0 Final 12:57 EDT LACTATE 3 HR NOTIFIED BY: normal _CB 05/05/25.1256.CWB. . . NT-proBNP Final LENORA: 05/05/2025 12:10:00 EDT MsgRcvd: 05/05/2025 13:14 EDT Lab Test Result Reference Status Received Comments 05/05/2025 13:14 NT PRO-BNP 20 pg/mL 0 - 125 Final EDT TSH Final LENORA: 05/05/2025 12:10:00 EDT MsgRcvd: 05/05/2025 13:24 EDT Lab Test Result Reference Status Received Comments 0.16 uIU/ml 05/05/2025 13:24 TSH 0.35 - 3.74 Final Below low normal EDT PROGRESS AND PROCEDURES MEDICAL DECISION MAKING: MEDICAL COMPLEXITY MODERATE. Pertinent clinical findings include the acute presentation and the character and location of the pain. The exam revealed no vital signs that were significantly abnormal, unequal pulses, rebound tenderness or mass. Serious conditions are unlikely to be a cause for the patient's findings. IV fluids and narcotics have been given and antiemetics have been given. (Patient is seen frequently in the ED usually for abdominal pain. She does have a history of Stewart's. Appears minimally hypovolemia but not severely dehydrated. No evidence of any obvious acute infection suspect possible viral etiology. Did feel somewhat improved after IV fluid). Disposition: Condition: stable. Discharged in stable condition. Discharge decision based on the following: patient's condition is stable; patient's exam is stable; clinical impression is consistent with outpatient treatment. 9 of 10 Narrative CLINICAL IMPRESSION Chronic generalized abdominal pain of undetermined cause. Vomiting with nausea. Abnormal tests; (borderline hypoglycemia). Davonte's disease. DISCHARGE INSTRUCTIONS Warnings: GENERAL WARNINGS: Return or contact your physician immediately if your condition worsens or changes unexpectedly, if not improving as expected, or if other problems arise. Prescription Medications: increased Decadron to 2 mg daily for the next 3 days. Follow-up: Follow up with your doctor in two days if not better. (Electronically signed by Leandro Rizzo M.D. 05/05/25 16:42:43 EDT) Generated by [facility] 10 of 10 ED ORDER SHEET ([facility] ONLY) Observed: 11:12 AM Status: F Source: [facility] Order Sheet Order Sheet [address] [place] [address] [id number] 05/05/2025 Patient: JAQUELIN SZYMANSKI Sex: Female : 1995 Age: 30y MEASUREMENTS: Wt: 84.4 kg, Ht/Osmar: 65.0 in, BMI: 30.95 ALLERGIES: Excedrin Migraine, Neosporin ([id number]), azithromycin, latex MEDICATION/IV/DRIP/FLUID ORDERS Order Description Priority Entered Acknowledged Completed IV NS 0.9 %1000 mL at 999 11:52 05/05/2025 11:55 12:14 mL/hr (NOW x1) Leandro Rizzo M.D. 05/05/2025 05/05/2025 Bryce Monroe R.N. RRicky Zofran IVP4 mg (NOW x1) 11:52 05/05/2025 11:55 12:14 Leandro Rizzo M.D. 05/05/2025 05/05/2025 Bryce Monroe R.N. R.NKaye HYDROmorphone (Dilaudid) 11:52 05/05/2025 11:55 12:14 IVP0.5 mg (NOW x1, HIGH Leandro Rizzo M.D. 05/05/2025 05/05/2025 ALERT MEDICATION) Bryce Monroe R.N. RKayeNKaye Reason for ordering with alerts: Benefits outweigh risks --11:52 05/05/2025 Leandro Rizzo M.D. Hydrocortisone (Solu-Cortef) 11:52 05/05/2025 11:55 12:15 [id number] mg (NOW x1) Leandro Rizzo M.D. 05/05/2025 05/05/2025 Bryce Monroe R.N. RKayeNKaye 1 of 3 Order Sheet HYDROmorphone (Dilaudid) 14:34 05/05/2025 14:35 14:39 IVP1 mg (NOW x1, HIGH ALERT Leandro Rizzo M.D. 05/05/2025 05/05/2025 MEDICATION) Bryce Monroe R.N. RKayeNKaye Reason for ordering with alerts: Clinical consideration given --14:34 05/05/2025 Leandro Rizzo M.D. IV NS 0.9 %1000 mL at 999 14:51 05/05/2025 14:56 mL/hr (NOW x1) Bryce Torrez R.N. 05/05/2025 Verbal Order, Auth by: Leandro Monroe M.D. R.N. Read back and verified Reason for ordering with alerts: Benefits outweigh risks --14:51 05/05/2025 Bryce Torrez R.N. LAB ORDERS Order Description Priority Entered Acknowledged Collected Completed CBC w Diff Stat Stat 11:51 05/05/2025 11:54 05/05/2025 12:30 05/05/2025 Lyric Sierra Cameron Yoder, R.N. R.N. CMP Stat Stat 11:51 05/05/2025 11:54 05/05/2025 12:30 05/05/2025 Lyric Sierra Cameron Yoder, R.N. RCarmel. Blood Culture Stat 11:51 05/05/2025 11:54 05/05/2025 12:30 05/05/2025 [Angelica] # 1 Stat Lyric Sierra Cameron Yoder, R.N. R.N. Blood Culture Stat 11:51 05/05/2025 11:54 05/05/2025 13:33 05/05/2025 [[place]] # 2 Stat Lyric Sierra Cameron Yoder, R.N. R.N. BNP Stat Stat 11:51 05/05/2025 11:54 05/05/2025 12:30 05/05/2025 Lyric Sierra Cameron Yoder, R.N. R.N. 2 of 3 Order Sheet Urinalysis Stat Stat 11:51 05/05/2025 11:55 05/05/2025 Lyric Sierra R.N. CRP Stat Stat 11:51 05/05/2025 11:54 05/05/2025 12:30 05/05/2025 Lyric Sierra Cameron Yoder, R.N. RCarmel. TSH Stat Stat 11:51 05/05/2025 11:55 05/05/2025 12:30 05/05/2025 Lyric Sierra Cameron Yoder, R.N. RKayeN. Lactate, Serum Stat Stat 11:51 05/05/2025 11:54 05/05/2025 12:30 05/05/2025 Lyric Sierra Cameron Yoder, R.N. R.N. DIAGNOSTIC STUDY ORDERS Order Description Priority Entered Acknowledged Completed STAFF ORDERS Order Description Priority Entered Acknowledged Collected Completed [Electronically signed by Leandro Rizzo M.D. (05/05/2025 16:42 EDT)] 3 of 3 ED SUPER BILL Observed: 05/05/2025 11:12 AM Status: F [facility] [address] [address] [id number] 05/05/2025 Patient: JAQUELIN SZYMANSKI Sex: Female : 1995 Age: 30y Item Facility Professional Category Description Code Code Quantity Fee Total Drugs Normal Saline 583463 2 $0.00 $0.00 1000cc (020777) Nurse/E/M EMERGENCY 240852 1 $0.00 $0.00 DEPARTMENT VISIT HIGH/URGENT SEVERITY (75900-61) Nurse/IV/IM/Infusions Hydration 997449 2 $0.00 $0.00 additional hour (02671) Nurse/IV/IM/Infusions IVP additional 080024 2 $0.00 $0.00 push (69421) Nurse/IV/IM/Infusions IVP initial 991170 1 $0.00 $0.00 (79721) Nurse/IV/IM/Infusions IVP same med [id number] 1 $0.00 $0.00 (31 min apart) (19137) Grand Total $0.00 1 of 2 [facility] Providers Leandro Rizzo M.D. Chief Complaint ABDOMINAL PAIN. Principal Diagnosis Chronic generalized abdominal pain of undetermined cause. Vomiting with nausea. Abnormal tests; (borderline hypoglycemia). Davonte's disease. ICD-10 Codes R10.84: Generalized abdominal pain R11.2: Nausea with vomiting, unspecified 2 of 2 ED VITALS FLOW SHEET Observed: 11:12 AM Status: F Source: [facility] Vitals Vital Sign Flow Sheet [address] [address] [id number] 05/05/2025 Patient: JAQUELIN SZYMANSKI Sex: Female : 1995 Age: 30y Measurements Wt: 84.4 kg, Ht/Osmar: 65.0 in, BMI: 30.95 Measured Time BP MAP HR RR O2Sat ETCO2 Temp Pain GCS RTS 16:06 05/05/2025 107/70 77 98 16:05 05/05/2025 96 94% 16:00 05/05/2025 97 94% 15:55 05/05/2025 91 93% 15:51 05/05/2025 106/59 71 87 15:50 05/05/2025 88 93% 15:45 05/05/2025 88 94% 15:40 05/05/2025 86 93% 15:36 05/05/2025 106/59 74 85 15:35 05/05/2025 84 94% 15:30 05/05/2025 87 96% 15:25 05/05/2025 81 95% 15:21 05/05/2025 129/87 98 87 15:20 05/05/2025 124 93% 15:15 05/05/2025 89 95% 1 of 4 Vitals Measured Time BP MAP HR RR O2Sat ETCO2 Temp Pain GCS RTS 15:10 05/05/2025 81 94% 15:06 05/05/2025 111/65 78 83 15:05 05/05/2025 81 94% 15:00 05/05/2025 81 94% 14:55 05/05/2025 83 95% 14:51 05/05/2025 118/64 82 88 14:50 05/05/2025 86 93% 14:45 05/05/2025 85 96% 14:40 05/05/2025 85 96% 14:36 05/05/2025 117/75 88 81 14:35 05/05/2025 91 96% 14:30 05/05/2025 84 95% 14:25 05/05/2025 84 95% 14:21 05/05/2025 119/81 89 82 14:20 05/05/2025 87 96% 14:15 05/05/2025 86 98% 14:10 05/05/2025 94 96% 14:06 05/05/2025 110/73 79 89 14:05 05/05/2025 89 97% 14:00 05/05/2025 89 96% 13:55 05/05/2025 85 96% 13:51 05/05/2025 117/74 85 88 13:50 05/05/2025 83 96% 13:45 05/05/2025 85 96% 13:40 05/05/2025 83 96% 2 of 4 Vitals Measured Time BP MAP HR RR O2Sat ETCO2 Temp Pain GCS RTS 13:36 05/05/2025 112/65 80 85 13:35 05/05/2025 85 98% 13:30 05/05/2025 89 97% 13:25 05/05/2025 84 97% 13:21 05/05/2025 126/80 91 87 13:20 05/05/2025 87 97% 13:15 05/05/2025 87 97% 13:10 05/05/2025 88 97% 13:06 05/05/2025 108/74 81 89 13:05 05/05/2025 89 97% 13:00 05/05/2025 91 96% 12:55 05/05/2025 97 96% 12:51 05/05/2025 109/65 79 87 12:50 05/05/2025 89 97% 12:45 05/05/2025 92 97% 12:40 05/05/2025 91 96% 12:36 05/05/2025 124/83 91 80 12:35 05/05/2025 87 97% 12:30 05/05/2025 94 96% 12:25 05/05/2025 89 97% 12:21 05/05/2025 107/65 79 94 12:20 05/05/2025 98 98% 12:15 05/05/2025 86 97% 12:10 05/05/2025 92 99% 12:06 05/05/2025 122/50 76 89 3 of 4 Vitals Measured Time BP MAP HR RR O2Sat ETCO2 Temp Pain GCS RTS 12:05 05/05/2025 94 99% 12:00 05/05/2025 90 99% 11:55 05/05/2025 92 98% 11:51 05/05/2025 107/76 84 84 11:50 05/05/2025 86 98% 11:45 05/05/2025 101 99% 11:40 05/05/2025 89 99% 11:36 05/05/2025 110/70 78 88 11:35 05/05/2025 87 100% 11:30 05/05/2025 89 99% 11:27 05/05/2025 95/75 82 87 16 98% RA 98.0 F 8 4 of 4 PROGRESS Observed: 04/02/2025 2:00 PM Status: COMPLETED Source: [facility] ID: [id number] Author: TRINA DAILY APRN.WELL [employer]ER Service: ? Author Type: Nurse Practitioner Type: Progress Notes Filed: 04/02/2025 14:31 Note Text: FOLLOW UP - PSYCHIATRIC PROGRESS NOTE Visit Type:Virtual Visit utilizing two-way audio and video for at least a portion of the visit. Consent for virtual visit obtained verbally. Confidentiality limitations with virtual visits reviewed with the patient and guardian, if present, who have accepted the risk verbally prior to proceeding with encounter. I have communicated my name and active licensure. The patient's identity and physical location were verified at the time of this visit. Either the patient or their legal in store representative has been informed of the risks and benefits of -- and alternatives to -- treatment through a remote evaluation and consents to proceed with the evaluation remotely. Recording using [employer] software for draft documentation of the visit was discussed with the patient/authorized in store representative; all questions welcomed and answered. Patient/authorized in store representative agreed to proceed Reason for Visit: Outpatient follow-up and safety monitoring of previously prescribed psychiatric medication, psychotherapy or other treatment CC: Follow up on psychiatric medication management. HPI: Patient is a 30-year-old female with a history of OCD, PTSD, and depression, presenting for follow-up. The patient was recently hospitalized due to an inability to access her medications and experiencing an adrenal crisis. She reports being off clomipramine for about a month but resumed it yesterday. She has continued taking lamotrigine and Latuda without interruption. Since discontinuing clomipramine, she has experienced a resurgence of OCD symptoms, describing them as so bad. She reports intrusive thoughts compelling her to engage in cleaning and other activities, which interfere with her sleep. These compulsions are driven by a need to feel better and an inability to relax unless the tasks are completed. She notes that clomipramine previously made a significant difference in managing these symptoms. Despite the challenges, she reports that lamotrigine and Latuda have been effective in managing her depression. She denies feeling overwhelmed or depressed due to the resurgence of OCD symptoms. She also expresses concerns about her son's schooling and the additional stress of managing these responsibilities without her full medication regimen. She is currently working from home and is exploring options for FMLA to manage her workload and mental health needs effectively. Risks and benefits of the medication, including any black box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 08/15/2022 Hyperemesis [R11.10] 08/15/2022 OLGA (generalized anxiety disorder) [F41.1] 08/15/2022 Nausea and vomiting [R11.2] 11/18/2022 Malnutrition of mild degree (HCC) [E44.1] 11/20/2022 Elevated LFTs [R79.89] 11/20/2022 Mixed obsessional thoughts and acts [F42.2] 12/26/2022 Panic disorder with agoraphobia [F40.01] 12/26/2022 Chronic post-traumatic stress disorder (PTSD) [*12/26/2022 Major depressive disorder, recurrent episode, m*12/26/2022 Elevated liver enzymes [R74.8] 05/03/2023 Obesity, Class I, BMI 30-34.9 [E66.811] 05/12/2023 12/06/2023 Encounter Status:Closed by MAKENZIE LEVIN on 02/17/25 ELBOW COMPLETE RT Observed: 02/03/2025 9:57 AM Status: F Source: [place] [address] Patient: JAQUELIN SZYMANSKI Phone#: : 1995 Age: 29 Gender: F Pt. Type: ER Account: [id number] Location: 052 Ordering: KEVIN GARCIA Exam Date: 02/02/2025/19:15 Family Phys: KEVIN BRADLEY Charge Code: 025418 Physician: [place] Order #: [id number] Dose#: PROCEDURE: X-RAY ELBOW RT MIN 3 VIEWS COMPARISON: [facility], XR, FOOT LT COMPLETE, 08/22/2023, 20:19. INDICATIONS: Elbow injury. FINDINGS: BONES: Subtle lucency in the radial head concerning for nondisplaced fracture. Distal humerus unremarkable. Proximal ulna is unremarkable. SOFT TISSUES: Negative. No visible soft tissue swelling. EFFUSION: None visible. OTHER: Negative. CONCLUSION: 1. Subtle lucency in the radial head, concerning for nondisplaced fracture. This report was communicated by telephone to Dr. Kalani Mathew at the dictation time shown below. Dictated by: Hailee Alicae MD on 02/03/2025 at 9:31 Approved by: Hailee Alicea MD on 02/03/2025 at 9:56 ED SUPER BILL Observed: 02/02/2025 6:35 PM Status: C Source: [address] [address] [id number] 02/02/2025 Patient: JAQUELIN SZYMANSKI Sex: Female : 1995 Age: 29y Item Professional Category Description Facility Code Code Quantity Fee Total Nurse/E/M EMERGENCY 876766 1 $0.00 $0.00 DEPARTMENT VISIT MODERATE SEVERITY (13415-98) Grand Total $0.00 Providers Kevin Garcia D.O. Chief Complaint Injury to the right elbow and Chief Complaint- patient was did not really feel well was been on a stress or uncle she doubled her steroids. And she slipped and fell in the bathroom and hit the tub she injured her right elbow which was giving her severe pain complain some minimal pain to the hip. She denied loss of consciousness. She presents to the emergency department. she has a history of Stewart's disease. Actually, the patient states she is lightheaded and then fell into the bath. She says she gets lightheaded frequently with her Stewart's. Said this is kind of normal for her. We did do orthostatics. And her heart rate did elevate. She said she felt okay with this. I did offer to do a workup on her. But she declined saying this is pretty much baseline for her. 1 of 2 Superbill Principal Diagnosis Acute traumatic pain in the right upper extremity (elbow) and right lower extremity (hip). Near syncope Single contusion with soft tissue hematoma to the right elbow and left hip. Fall on the same level by stumbling. ICD-10 Codes G89.11: Acute pain due to trauma W01.0XXA: Fall on same level from slipping, tripping and stumbling without subsequent striking against object, initial encounter S50.01xA: Contusion of right elbow, initial encounter S70.02xA: Contusion of left hip, initial encounter R55: Syncope and collapse 2 of 2 ED MED ADMINISTRATION DETAIL Observed: 0 02/02/2025 6:35 PM Status: C Source: [facility] Banquet Stewardess Medication Administration Record [address] [address] [id number] 02/02/2025 Patient: JAQUELIN SZYMANSKI Sex: Female : 1995 Age: 29y MEASUREMENTS: Wt: 84.4 kg, Ht/Osmar: 66.0 in, BMI: 30.02 ALLERGIES: Excedrin Migraine, Neosporin (iih-wim-pvgrx), azithromycin, latex Medication Ordered Medication Administration Date/Time OxyCODONE-APAP 20:26 02/02 OxyCODONE-APAP 5-325 (Percocet) PO 1 tab given. Given 5-325 (Percocet) PO Allergies verified and confirmed 5 rights. Information reviewed with 20:26 02/02/2025 1 tab (NOW x1, patient including reason for taking this medication, signs of allergic Sosa Abbasi R.N. HIGH ALERT reaction and precautions. Verbalizes understanding. - 20:28 Scanned MEDICATION) Sosa Abbasi R.N. OxyCODONE-APAP Completed 5-325 (Percocet) PO 20:44 02/02/2025 2 tab Sosa Abbasi R.N. Order Comments: 20:00 02/02/2025 (to go) Kevin Garcia D.O. 20:44 02/02/2025 Order Completed. Medication given for home per order Sosa Abbasi R.N. 1 of 1 ED VITALS FLOW SHEET Observed: 6:35 PM Status: C Source: [facility] Vitals Vital Sign Flow Sheet [address] [address] [id number] 02/02/2025 Patient: JAQUELIN SZYMANSKI Sex: Female : 1995 Age: 29y Measurements Wt: 84.4 kg, Ht/Osmar: 66.0 in, BMI: 30.02 Measured Time BP MAP HR RR O2Sat ETCO2 Temp Pain GCS RTS 20:50 02/02/2025 16 4 20:42 02/02/2025 91/65 73 73 20:41 02/02/2025 84 94% 20:40 02/02/2025 103/76 83 87 20:38 02/02/2025 108/74 83 84 20:36 02/02/2025 96 96% 20:36 02/02/2025 107/70 82 90 20:35 02/02/2025 107/64 70 93 20:32 02/02/2025 93/63 72 96 20:31 02/02/2025 95 98% 20:30 02/02/2025 105/61 70 93 20:28 02/02/2025 99/64 73 92 20:26 02/02/2025 84 97% 20:26 02/02/2025 114/70 82 84 20:24 02/02/2025 113/75 84 79 1 of 3 Vitals Measured Time BP MAP HR RR O2Sat ETCO2 Temp Pain GCS RTS 20:22 02/02/2025 98/60 76 81 20:21 02/02/2025 83 94% 20:19 02/02/2025 111/69 80 86 20:18 02/02/2025 107/72 81 80 20:16 02/02/2025 95 96% 20:16 02/02/2025 101/59 80 90 20:13 02/02/2025 107/68 78 92 20:12 02/02/2025 96/69 74 92 20:11 02/02/2025 89 89% 20:09 02/02/2025 113/73 81 83 20:07 02/02/2025 106/66 78 82 20:06 02/02/2025 88 97% 20:05 02/02/2025 101/65 77 83 20:03 02/02/2025 106/69 83 84 20:01 02/02/2025 105/72 81 81 20:01 02/02/2025 88 88% 19:59 02/02/2025 101/68 77 82 19:57 02/02/2025 109/72 84 93 19:56 02/02/2025 83 96% 19:55 02/02/2025 96/59 71 82 19:53 02/02/2025 100/66 78 92 19:51 02/02/2025 90 95% 19:51 02/02/2025 106/71 79 87 19:49 02/02/2025 104/68 76 87 19:47 02/02/2025 103/67 75 89 2 of 3 Vitals Measured Time BP MAP HR RR O2Sat ETCO2 Temp Pain GCS RTS 19:45 02/02/2025 104/65 78 82 19:43 02/02/2025 108/75 86 84 19:41 02/02/2025 93 97% 19:41 02/02/2025 120/94 102 114 19:39 02/02/2025 113/80 90 90 19:37 02/02/2025 102/51 74 88 19:36 02/02/2025 88 95% 19:31 02/02/2025 88 94% 19:26 02/02/2025 83 98% 19:16 02/02/2025 81 94% 19:11 02/02/2025 96 98% 19:08 02/02/2025 109/75 81 94 19:06 02/02/2025 85 95% 19:01 02/02/2025 94 96% 18:56 02/02/2025 82 94% 18:53 02/02/2025 109/74 85 80 18:51 02/02/2025 74 97% 18:46 02/02/2025 87 95% 18:41 02/02/2025 91 98% 18:41 02/02/2025 124/88 100 95 16 98% RA 98.4 F 8 18:38 02/02/2025 124/88 95 72 3 of 3 ED NURSES CLINICAL NOTE Observed: 2024 6:35 PM Status: C Source: [facility] Nurse Narrative Nurse Clinical Narrative [facility] [address] [place] [address] [id number] 02/02/2025 18:35:00 Patient: JAQUELIN SZYMANSKI Sex: Female : 1995 Age: 29y Disposition: Discharge to Home Disposition Decision Time: 20:47 02/02/2025 Departure Time: 20:52 02/02/2025 TRIAGE Arrived by private vehicle. Historian: (patient). Primary physician (Dr. Gonsalez). Triage time: 18:38 02/02/2025. Acuity: LEVEL 3. Chief Complaint: RIGHT UPPER EXTREMITY PAIN, NUMBNESS and TINGLING. Location of symptoms- right elbow. This started today. ( Fell backwards into the bathtub. Left hip pain). The patient has had fatigue and dizziness. SEPSIS SCREEN: NEGATIVE. SIRS criteria negative: heart rate greater than 90. -- 18:42 02/02/25 EDT Sosa Abbasi R.N. 18:41 02/02/25. BP: 124/88 MAP: 100. HR: 95. RR: 16. O2 saturation: 98% on room air. Temperature: 98.4 F (temporal). Pain level now 8/10. Describes the pain as aching and throbbing. (Right Elbow). -- 18:42 02/02/25 ASIM Abbasi R.N. Measurements: 18:41 02/02/25 Wt: 84.4 kg, Ht/Osmar: 66.0 in, BMI: 30.02 -- 18:41 02/02/25 ASIM Abbasi R.N. Medications: Xanax 0.5 mg tablet: 1 once a day . -- 18:40 04/13/25 VISHALT Sosa Abbasi R.N. topiramate 25 mg tablet: 1 once a day . -- 18:40 02/02/25 EDT Sosa Abbasi R.N. 1 of 4 Nurse Narrative lurasidone 40 mg tablet: 1 once a day . -- 18:40 02/02/25 VISHALT Sosa Abbasi R.N. levothyroxine 125 mcg tablet: 1 once a day . -- 18:40 02/02/25 EDT Sosa Abbasi R.N. Jardiance 10 mg tablet: 1 once a day . -- 18:40 02/02/25 VISHALT Sosa Abbasi R.N. fludrocortisone 0.1 mg tablet: 1 once a day . -- 18:40 02/02/25 VISHALT Sosa Abbasi R.N. eletriptan 40 mg tablet: 1 tablet as directed . (onset and every 2 hours) -- 18:40 02/02/25 VISHALT Sosa Abbasi R.N. dexamethasone 0.5 mg tablet: 1 once a day . -- 18:40 02/02/25 VISHALT Sosa Abbasi R.N. clomipramine 50 mg capsule: 4 capsule twice a day . (200 mg total) -- 18:40 02/02/25 VISHALT Sosa Abbasi R.N. atorvastatin 10 mg tablet: 1 tablet once a day . -- 18:40 02/02/25 VISHALT Sosa Abbasi R.N. Aimovig Autoinjector 70 mg/mL subcutaneous auto-injector: 1 once a month . -- 18:40 02/02/25 VISHALT Sosa Abbasi R.N. Allergies: Excedrin Migraine -- 18:40 02/02/25 VISHALT Sosa Abbasi R.N. Neosporin (vfq-czh-akctd) -- 18:40 02/02/25 VISHALT Sosa Abbasi R.N. latex -- 18:40 02/02/25 VISHALT Sosa Abbasi R.N. azithromycin -- 18:40 02/02/25 VISHALT Sosa Abbasi R.N. 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 Migraine Headache -- 18:40 02/02/25 EDT Sosa Abbasi R.N. Grave's Disease -- 18:40 02/02/25 EDT Sosa Abbasi R.N. Diabetes Mellitus Type 2 -- 18:40 02/02/25 EDT Sosa Abbasi R.N. Seizure -- 18:40 02/02/25 EDT Sosa Abbasi R.N. ADDITIONAL SURGERIES: Gallbladder Surgery -- 18:40 02/02/25 EDT Sosa Abbasi R.N. Appendectomy -- 18:40 02/02/25 VISHALT Sosa Abbasi R.N. -- 18:40 02/02/25 EDT Sosa Abbasi R.N. Total abdominal hysterectomy -- 18:40 02/02/25 VISHALT Sosa Abbasi R.N. History 18:38 02/02/25. PAST MEDICAL HX: Immunizations: up-to-date. 2 of 4 Nurse Narrative SOCIAL HX: Never smoker. No alcohol use or drug use. The patient has not traveled outside the [place] Infectious disease exposure: No infectious disease exposure. ABUSE ASSESSMENT: The patient answered yes to the question(s) Do you feel safe in your home? and no to the question(s) Are you afraid to go home?. SELF HARM ASSESSMENT: Self harm assessment was performed. The patient answered no to the question(s) Have you recently felt down, depressed, or hopeless? and Do you have thoughts of harming or killing yourself?. FALL RISK ASSESSMENT: Fall risk assessment completed. Risk factors identified include dizziness. Fall interventions initiated. Patient placed on stretcher. Side rails up x2. Bed in low position. Brakes on. Call light in reach of patient. Instructed not to get up without assistance. Instructions given to patient including fall prevention information. Verbalizes understanding. -- 18:42 02/02/25 ASIM Abbasi R.N. Interventions 18:38 02/02/25. Advanced care plan discussed with patient. Patient does not have advanced directive. -- 18:42 02/02/25 EDT Sosa Abbasi R.N. PHYSICAL ASSESSMENT 18:45 02/02/25. GENERAL / NEURO / PSYCH: Oriented X 4. Alert. Appears in no acute distress. ( Pt arrives via w/c to ER#6 c/o right elbow pain that started after she fell in the bathroom today.PT reports she has been stress out from a in the family and wanted to take a bath and she fell. Pt has a bruise noted to the outer right upper forearm below the elbow. Pt states more pain with extension.). The patient has numbness. EXTREMITIES: Limited ROM present. No upper extremity edema. Right elbow: tenderness and ecchymosis of the area of the posterior elbow. Limited ROM secondary to pain (diminished extension). No laceration, abrasion, puncture wound, foreign body or deformity. SKIN: Skin intact. Skin is warm and dry. -- 19:10 02/02/25 EDT Brianna Rodríguez R.N. NURSING PROGRESS NOTES 19:02/02/25. Care transferred and report received (Riky). -- 19:27 02/02/25 EDT Ingrid Aguilar R.N. 19:17 02/02/25. Patient transported to radiology by stretcher with plant health care technician. -- 19:27 02/02/25 EDT Ingrid Aguilar R.N. 19:27 02/02/25. Patient returned from radiology by stretcher with plant health care technician. -- 19:27 02/02/25 EDT Ingrid Aguilar R.N. 3 of 4 Nurse Narrative 19:28 02/02/25. ( Pt c/o increased pain to her right elbow. Reported to Dr. Garcia.). -- 19:28 02/02/25 EDT Ingrid Aguilar R.N. 19:33 02/02/25. ED physician at the patient's bedside (19:33 02/02/2025). -- 19:33 02/02/25 EDT Ingrid Aguilar R.N. 19:37 02/02/25. BP: 102/51 MAP: 74 mmHg. HR: 88 bpm. -- 19:41 02/02/25 EDT Ingrid Aguilar R.N. 19:39 02/02/25. BP: 113/80 MAP: 90 mmHg. HR: 90 bpm. -- 19:41 02/02/25 EDT Ingrid Aguilar R.N. 19:41 02/02/25. BP: 120/94 MAP: 102 mmHg. HR: 114 bpm. -- 19:42 02/02/25 EDT Ingrid Aguilar R.N. 19:42 02/02/25. ( Orthostatic vs completed.). -- 19:42 02/02/25 EDT Ingrid Aguilar R.N. 19:43 02/02/25. ( VS reported to MD.). -- 23:39 02/02/25 EDT Ingrid Aguilar R.N. 20:26 02/02/25. OxyCODONE-APAP 5-325 (Percocet) PO 1 tab given. Allergies verified and confirmed 5 rights. Information reviewed with patient including reason for taking this medication, signs of allergic reaction and precautions. Verbalizes understanding. -- 20:28 02/02/25 EDT Sosa Abbasi R.N. 20:46 02/02/25. Sling applied to right arm by nurse; distal pulses intact, sensation intact and motor function within normal limits. -- 20:46 02/02/25 EDT Sosa Abbasi R.N. 20:47 02/02/25. ED physician at the patient's bedside. -- 20:47 02/02/25 EDT Sosa Abbasi R.N. DISPOSITION / DISCHARGE 20:41 02/02/25. HR: 84 bpm. O2 saturation: 94%. -- 20:53 02/02/25 EDT Sosa Abbasi R.N. 20:42 02/02/25. BP: 91/65 MAP: 73 mmHg. HR: 73 bpm. -- 20:53 02/02/25 EDT Sosa Abbasi R.N. 20:50 02/02/25. RR: 16. Temperature: Deferred . Pain level now 4/10. (Right elbow). -- 20:54 02/02/25 EDT Sosa Abbasi R.N. Departure time: 20:52 02/02/2025. Condition at departure: stable. No learning barriers present. Reviewed medication(s) side effects, precautions, dosing and course information. Prescription(s) given to the patient. Medication(s) given for home use per physician order and policy. Reviewed ice and elevation instructions. Reviewed referral to an orthopedic surgeon. Patient verbalized understanding. Written instructions provided in Scottish. The patient was discharged home. The patient left ambulatory and via private vehicle. Spouse driving. -- 20:55 02/02/25 EDT Sosa Abbasi R.N. (Electronically signed by Ingrid Aguilar R.N. 02/03/25 06:56:37 EDT) Generated by [facility] 4 of 4 ED VISIT SUMMARY Observed: 02/02/2025 6:35 PM Status: C Source: [facility] Visit Overview Visit Overview [address] [place] [address] [id number] 02/02/2025 Patient: JAQUELIN SZYMANSKI Sex: Female : 1995 Age: 29y 02/05/2025 03:58 PM EDT ED Arrival:18:35 02/02/2025 EDT Status:not Recent Travel:no Language:eng Adv Directive:No Isolation Status: Ethnicity:N Fall Risk:risk Infectious Disease Exposure:no Measurements:5'6 / 167.6 Self-Harm Status:risk Sepsis Screen:negative cm 186.0 lb / 84.4 kg Chief Complaint:right elbow, RIGHT UPPER EXTREMITY NUMBNESS, RIGHT UPPER EXTREMITY PAIN, RIGHT UPPER EXTREMITY TINGLING, (Dr. Gonsalez), and (Fell backwards into the bathtub. Left hip pain) ALLERGIES azithromycin Excedrin Migraine latex Neosporin (fyi-zhk-ftmow) 1 of 4 Visit Overview HOME MEDICATIONS Aimovig Autoinjector 70 mg/mL subcutaneous auto-injector: 1 once a month . atorvastatin 10 mg tablet: 1 tablet once a day . clomipramine 50 mg capsule: 4 capsule twice a day . (200 mg total) dexamethasone 0.5 mg tablet: 1 once a day . eletriptan 40 mg tablet: 1 tablet as directed . (onset and every 2 hours) fludrocortisone 0.1 mg tablet: 1 once a day . Jardiance 10 mg tablet: 1 once a day . levothyroxine 125 mcg tablet: 1 once a day . lurasidone 40 mg tablet: 1 once a day . topiramate 25 mg tablet: 1 once a day . Xanax 0.5 mg tablet: 1 once a day . 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 Immunizations: up-to-date Migraine Headache See nurses notes Seizure PAST SURGICAL HISTORY Appendectomy Gallbladder Surgery Total abdominal hysterectomy SOCIAL HISTORY Smoking status: No Alcohol use: No Drug use: No ED COURSE 2 of 4 Visit Overview MEDICATIONS GIVEN IN EMERGENCY DEPARTMENT 20:26 02/02/25 OxyCODONE-APAP 5-325 (Percocet) PO 1 tab IV SITE INFORMATION INTAKE OUTPUT REASSESMENT (most recent) 19:28 02/02/25. ( Pt c/o increased pain to her right elbow. Reported to Dr. Garcia.). VITAL SIGNS First Vitals Last Vitals Temp 18:38 02/02/25 Temp 20:50 02/02/25 BP 18:38 02/02/25 124/88 BP 20:50 02/02/25 HR 18:38 02/02/25 72 HR 20:50 02/02/25 RR 18:38 02/02/25 RR 20:50 02/02/25 16 O2 Sat 18:38 02/02/25 O2 Sat 20:50 02/02/25 Pain 18:38 02/02/25 Pain 20:50 02/02/25 4 ETCO2 18:38 02/02/25 ETCO2 20:50 02/02/25 GCS 18:38 02/02/25 GCS 20:50 02/02/25 RTS 18:38 02/02/25 RTS 20:50 02/02/25 PROCEDURES NURSING INTERVENTIONS LABS / STUDIES LABS / STUDIES ORDERED EKG - ED Elbow R Complete LABS / STUDIES PENDING IMPORT ELBOW COMPLETE RT CLINICAL IMPRESSION 3 of 4 Visit Overview ACUTE TRAUMATIC PAIN IN THE RIGHT UPPER EXTREMITY (ELBOW) AND RIGHT LOWER EXTREMITY (HIP) FALL ON THE SAME LEVEL BY STUMBLING NEAR SYNCOPE SINGLE CONTUSION WITH SOFT TISSUE HEMATOMA TO THE RIGHT ELBOW AND LEFT HIP 4 of 4 ED ORDER SHEET (CPOE ONLY) Observed: 6:35 PM Status: C Source: [facility] Order Sheet Order Sheet [facility] [address] [place] [address] [id number] 02/02/2025 Patient: JAQUELIN SZYMANSKI Sex: Female : 1995 Age: 29y MEASUREMENTS: Wt: 84.4 kg, Ht/Osmar: 66.0 in, BMI: 30.02 ALLERGIES: Excedrin Migraine, Neosporin (tmy-xcr-hpypa), azithromycin, latex MEDICATION/IV/DRIP/FLUID ORDERS Order Description Priority Entered Acknowledged Completed OxyCODONE-APAP 5-325 20:00 02/02/2025 20:25 20:28 (Percocet) PO1 tab (NOW x1, Kevin Garcia, 02/02/2025 02/02/2025 HIGH ALERT MEDICATION) Sosa Martinez R.N. RKayeNKaye Reason for ordering with alerts: Benefits outweigh risks --20:00 02/02/2025 Kevin Garcia D.O. OxyCODONE-APAP 5-325 20:00 02/02/2025 20:25 20:44 (Percocet) PO2 tab (NOW x1, Kevin Garcia, 02/02/2025 02/02/2025 HIGH ALERT MEDICATION) Sosa Martinez R.NKaye RKayeNKaye Order Comments: 20:00 02/02/2025: (to go) Kevin Garcia D.O. 20:44 02/02/2025: Order Completed. Medication given for home per order Sosa Abbasi R.N. Reason for ordering with alerts: Benefits outweigh risks --20:00 02/02/2025 Kevin Garcia D.O. LAB ORDERS Order Description Priority Entered Acknowledged Collected Completed 1 of 2 Order Sheet EKG - ED Stat Stat 19:49 02/02/2025 20:15 02/02/2025 20:15 02/02/2025 Sosa [place] Katelyn Horst, D.O. R.N. R.NKaye DIAGNOSTIC STUDY ORDERS Order Description Priority Entered Acknowledged Completed Elbow R Complete Stat Stat 19:11 02/02/2025 19:12 20:28 Kevin Garcia 02/02/2025 02/02/2025 Sosa Wall, RKayeNKaye RKayeNKaye Order Comments: 19:11 02/02/2025: Status: Not . Kevin Garcia D.O. Reason for Study: Elbow Injury STAFF ORDERS Order Description Priority Entered Acknowledged Collected Completed Sling - arm 20:15 02/02/2025 20:25 02/02/2025 20:28 02/02/2025 Sosa Hampton Katelyn Horst, D.O. R.NKaye RKayeNKaye [Electronically signed by Kevin Garcia D.O. (02/03/2025 07:54 EDT)] 2 of 2 ED PHYSICIAN CLINICAL REPORT Observed: 0 02/02/2025 6:35 PM Status: C Source: [facility] Narrative Physician Clinical Narrative [address] [address] [phone] 02/02/2025 18:35:00 Patient: JAQUELIN SZYMANSKI Sex: Female : 1995 Age: 29y Disposition: Discharge to Home Disposition Decision Time: 20:47 02/02/2025 Departure Time: 20:52 02/02/2025 Measurements Wt: 84.4 kg, Ht/Somar: 66.0 in, BMI: 30.02 Initial Vital Sign Measured Time BP MAP HR RR O2Sat ETCO2 Temp Pain GCS RTS 18:38 02/02/2025 124/88 95 72 Time Seen: 19:06 02/02/2025. Arrived- By private vehicle. Historian- patient. Independent historian- family. HISTORY OF PRESENT ILLNESS Chief Complaint: Injury to the right elbow and Chief Complaint- patient was did not really feel well was been on a stress or uncle she doubled her steroids. And she slipped and fell in the bathroom and hit the tub she injured her right elbow which was giving her severe pain complain some minimal pain to the hip. She denied loss of consciousness. She presents to the emergency department. she has a history of Davonte's disease. Actually, the patient states she is lightheaded and then fell into the bath. She says she gets lightheaded frequently with her Stewart's. Said this is kind of normal for her. We did do orthostatics. And her heart rate did elevate. She said she felt okay with this. I did offer to do a workup on her. But she declined saying this is pretty much baseline for her. The injury happened just prior to arrival. Occurred at work. REVIEW OF SYSTEMS 1 of 5 Narrative SKIN: No suspected foreign body or skin laceration. NEUROLOGICAL: The patient has had new onset of constant, pain-related tingling of the right hand (moderate). No weakness. MUSCULOSKELETAL: The patient has had swelling. Status: Not . PAST HISTORY See nurses notes. Stewart's Disease Diabetes Mellitus Type 2 Grave's Disease Migraine Headache Seizure Surgeries: Appendectomy Gallbladder Surgery Total abdominal hysterectomy Medications: Aimovig Autoinjector 70 mg/mL subcutaneous auto-injector: 1 once a month . atorvastatin 10 mg tablet: 1 tablet once a day . clomipramine 50 mg capsule: 4 capsule twice a day . (200 mg total) dexamethasone 0.5 mg tablet: 1 once a day . eletriptan 40 mg tablet: 1 tablet as directed . (onset and every 2 hours) fludrocortisone 0.1 mg tablet: 1 once a day . Jardiance 10 mg tablet: 1 once a day . levothyroxine 125 mcg tablet: 1 once a day . lurasidone 40 mg tablet: 1 once a day . topiramate 25 mg tablet: 1 once a day . Xanax 0.5 mg tablet: 1 once a day . Allergies: azithromycin Excedrin Migraine latex Neosporin (wub-ziu-tcurg) 2 of 5 Narrative SOCIAL HISTORY Never smoker. No alcohol use. ADDITIONAL NOTES The nursing notes have been reviewed. PHYSICAL EXAM Appearance: Appears to be in pain. Head: Head atraumatic. Eyes: Pupils equal, round and reactive to light. Eyes normal inspection. ENT: Ears normal. Nose normal. Neck: Normal inspection. CVS: Normal heart rate and rhythm. Heart sounds normal. Respiratory: No respiratory distress. Breath sounds normal. Abdomen: No visible injury. Soft and nontender. Back: Normal inspection. No tenderness. Skin: Skin warm and dry. Normal skin color. Normal skin turgor. Extremities: Right elbow: moderate tenderness, mild swelling and medium sized ecchymosis. Limited ROM secondary to pain (diminished extension). Neurovascular intact distally. No erythema, abrasion, deformity or open wound communicating with joint space. No avulsion. Extremities otherwise negative. Neuro, Vascular and Tendons: Sensation intact. Motor intact. Neuro: No motor deficit. LABS, X-RAYS, AND EKG 12-LEAD EKG: EKG time: 20:14 02/02/2025. No acute process. Rate: 97. Normal QRS complex. Normal axis. ST depression in lead I, aVL, V4, V5 and V6. Changes present when compared to prior EKG. Interpretation time: 20:18 02/02/2025. PROGRESS AND PROCEDURES MEDICAL DECISION MAKING: (patient was did not really feel well was been on a stress or uncle she doubled her steroids. And she slipped and fell in the bathroom and hit the tub she injured her right elbow which was giving her severe pain complain some minimal pain to the left hip. She denied loss of consciousness. She presents to the emergency department. she has a history of Stewart's disease. 3 of 5 Narrative Actually, the patient states she is lightheaded and then fell into the bath. She says she gets lightheaded frequently with her Davonte's. Said this is kind of normal for her. We did do orthostatics. And her heart rate did elevate. She said she felt okay with this. I did offer to do a workup on her. But she declined saying this is pretty much baseline for her. patient had a EKG he which showed red 97 normal axis there was some depression V4 V6 1 aVL it actually looks improved for EKG done on October 20, 2024 I did offer her to do a workup for her near-syncope she says she has he has all the time and she feels okay at this time and wants to go home and declines it at this time. She was placed in a sling I did give her a Percocet here for the pain we will give her 2 Percocet to go she should follow up with her family doctor and also Dr. Lyndon Story she does have some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 vaccine every fall. Ask your provider about this. When to seek medical advice Call your healthcare provider right away if you have the flu and any of these occur: Cough with lots of colored mucus (sputum) or blood in your mucus Chest pain, shortness of breath, wheezing, or trouble breathing Severe headache, or face, neck, or ear pain New rash with fever Fever of 100.4F (38C) or higher, or as directed by your healthcare provider Confusion, behavior change, or seizure 4 of 5 Discharge Instructions Severe weakness or dizziness You get a new fever or cough after getting better for a few days Also call your provider if you have flu symptoms and have a weakened immune system or are taking medicines that can weaken your immune system. These include steroids and certain anti-inflammatory medicines. Activities Restrictions [address] [address] [id number] 11/10/2024 Patient: JAQUELIN SZYMANSKI Sex: Female : 1995 Age: 29y You have been given the following instructions regarding activity, work, and/or school. Off work for 3 days. Facility [facility] 5 of 5 ED PHYSICIAN CLINICAL REPORT Observed: 0 11/10/2024 3:13 PM Status: F Source: [facility] Narrative Physician Clinical Narrative [address] [address] [id number] 11/10/2024 Patient: JAQUELIN SZYMANSKI Sex: Female : 1995 Age: 29y Measurements Wt: 85.7 kg, Ht/Osmar: 65.0 in, BMI: 31.45 Initial Vital Sign Measured Time BP MAP HR RR O2Sat ETCO2 Temp Pain GCS RTS 15:17 11/10/2024 127/85 94 70 Time Seen: 15:38 11/10/2024. Arrived- By private vehicle. Historian- patient. HISTORY OF PRESENT ILLNESS Chief Complaint: COUGH, SORE THROAT, SINUS PAIN, CHILLS and MUSCLE ACHES. This started 3 days ago and is still present. The patient has had a cough, chest discomfort, nasal congestion and a nasal discharge. No sputum production, difficulty breathing or ear pain. Additional history - The patient has had contact with a sick child with confirmed type A flu and Coronavirus. Similar symptoms previously. None. Recent medical care: Not recently seen/assessed. REVIEW OF SYSTEMS SKIN: No skin rash. CVS: No pedal edema or calf pain. NEUROLOGICAL: The patient has had a headache. EYES: No eye discomfort. GI: The patient has had nausea, vomiting and diarrhea. No abdominal pain. 1 of 8 Narrative ENDO/HEME/LYMPH: No enlarged lymph nodes. : No difficulty with urination. ALLERGY/IMMUNO: No hay fever. 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 atorvastatin 10 mg tablet: 1 tablet once a day. clomipramine 50 mg capsule: 4 capsule twice a day. (200 mg total) dexamethasone 0.5 mg tablet: 1 once a day. eletriptan 40 mg tablet: 1 tablet as directed. (onset and every 2 hours) fludrocortisone 0.1 mg tablet: 1 once a day. Jardiance 10 mg tablet: 1 once a day. levothyroxine 125 mcg tablet: 1 once a day. lurasidone 40 mg tablet: 1 once a day. topiramate 25 mg tablet: 1 once a day. Xanax 0.5 mg tablet: 1 once a day. Allergies: azithromycin Excedrin Migraine latex Neosporin (ges-lvp-nfscr) SOCIAL HISTORY 2 of 8 Narrative No alcohol use or drug use. ADDITIONAL NOTES The nursing notes have been reviewed. PHYSICAL EXAM Vital Signs: Have been reviewed. Appearance: Alert. No acute distress. Eyes: Pupils equal, round and reactive to light. Eyes normal inspection. ENT: Pharynx normal. Uvula midline. No pharyngeal erythema, mouth ulcerations, tonsillar exudate, peritonsillar mass or muffled or hoarse voice. No trismus. Neck: Normal inspection. Neck supple. CVS: Normal heart rate and rhythm. Heart sounds normal. Respiratory: No respiratory distress. Painless inspiration. Breath sounds normal. Skin: Skin warm. Normal skin color. No rash. Neuro: Oriented X 3. No motor deficit. No sensory deficit. LABS, X-RAYS, AND EKG Laboratory Tests: CORONAVIRUS (SARS) ANTIGEN TEST Final LENORA: 11/10/2024 17:15:00 EST MsgRcvd: 11/10/2024 17:49 EST Lab Test Result Reference Status Received Comments NORMAL: 11/10/2024 SARS ANTIGEN NEGATIVE Final NEGATIVE 17:49 EST INTERNAL 11/10/2024 PASS Final CONTROL 17:49 EST EXTERNAL QC 11/10/2024 YES Final DONE? 17:49 EST 3 of 8 Narrative SARS-CoV-2 THIS TEST IS BEING USED UNDER THE FDA EUA PROCEDURE. THIS ASSAY HAS BEEN VALIDATED AT [facility] FOR USE WITH NASAL AND NASOPHARYNGEAL SWAB SPECIMENS. INTERPRETIVE DATA TEST RESULTS SHOULD ALWAYS BE CONSIDERED IN THE CONTEXT OF CLINICAL OBSERVATIONS AND EPIDEMIOLOGICAL DATA IN MAKING FINAL DIAGNOSIS AND PATIENT MANAGEMENT DECISIONS. PATIENT MANAGEMENT SHOULD FOLLOW CURRENT CDC GUIDELINES. [facility] [place] [facility] SARS 4 of 8 ANTIGEN LESTER DOES NOT Narrative INFLUENZA VIRUS RAPID A/B Final LENORA: 11/10/2024 16:05:00 EST MsgRcvd: 11/10/2024 17:00 EST Lab Test Result Reference Status Received Comments POSITIVE 11/10/2024 CALLED TO ANDERSON BY INFLUENZA A [NEGATIVE Final 17:00 EST MKY AT 16:58 Abnormal NEGATIVE 11/10/2024 INFLUENZA B Final [NEGATIVE 17:00 EST INTERNAL 11/10/2024 PASS Final NEG QC 17:00 EST INTERNAL 11/10/2024 PASS Final POS QC 17:00 EST EXTERNAL QC 11/10/2024 YES Final DONE? 17:00 EST 5 of 8 Narrative A NEGATIVE TEST RESULT DOES NOT EXCLUDE INFECTION WITH INFLUENZA A OR B. THEREFORE, THE RESULTS OBTAINED FROM THIS FLU TEST SHOULD BE USED IN CONJUCTION WITH CLINICAL FINDINGS TO MAKE AN ACCURATE DIAGNOSIS. A POSITIVE RESULT DOES NOT RULE OUT CO-INFECTIONS WITH OTHER PATHOGENS OR IDENTIFY ANY SPECIFIC INFLUENZA A VIRUS 11/10/2024 SEND TO IC? YES Final SUBTYPE.CO-INFECTION 17:00 EST WITH INFLUENZA A AND B IS RARE. IT IS RECOMMENDED THAT DUAL POSITIVE RESULTS BE CONFIRMED BY VIRAL CULTURE OR AN FDA-CLEARED INFLUENZA A AND B MOLECULAR ASSAY. INDIVIDUALS WHO HAVE RECEIVED NASALLY ADMINISTERED 6 of 8 INFLUENZA A VACCINE MAY TEST Narrative RESULT 11/10/2024 NO Final CRITICAL? 17:00 EST PROGRESS AND PROCEDURES MEDICAL DECISION MAKING: (I do no Patient presenting with chills, myalgias, nausea, vomiting. She states her son was diagnosed with influenza and COVID on Monday. This has been her symptoms started. She states she needs to be tested for COVID and influenza in order to be off of work. On exam her heart is regular rate and rhythm without murmur lungs clear to auscultation bilaterally HEENT exam is unremarkable. I did test for COVID, influenza and this is pending. She is given a shot of IM Toradol and Zofran for nausea. Patient is just positive for influenza A. There was a delay in care as her COVID test had to be redone. Patient states she needed to have a positive COVID the stay home from work. COVID test was negative. I did give her a work note. I wrote her a prescription for Zofran. I recommended Prolia of fluids and rest. Return precautions discussed.). Disposition: Condition: good. Discharged in good condition. CLINICAL IMPRESSION Influenza type A with upper respiratory infection. DISCHARGE INSTRUCTIONS Off work for 3 days. Prescription Medications: ondansetron 4 mg disintegrating tablet: Take 1 tablet on tongue every eight hours for nausea/vomiting for 5 days, dispense 15 tablet. Refills 0. Pharmacy: [id number] - [address] [place] [address]. Follow-up: Follow up with your healthcare provider. Follow up with doctor. Understanding of the discharge instructions verbalized by patient. (Electronically signed by Rodney Mace D.O. 11/10/24 17:54:57 EST) 7 of 8 Narrative Generated by [employer] 8 of 8 ED MED ADMINISTRATION DETAIL Observed: 0 11/10/2024 3:13 PM Status: F Source: [facility] Banquet Stewardess Medication Administration Record [address] [address] [id number] 11/10/2024 Patient: JAQUELIN SZYMANSKI Sex: Female : 1995 Age: 29y MEASUREMENTS: Wt: 85.7 kg, Ht/Osmar: 65.0 in, BMI: 31.45 ALLERGIES: Excedrin Migraine, Neosporin (qio-lhb-bqcvt), azithromycin, latex Medication Ordered Medication Administration Date/Time KetorOLAC 16:12 11/10 KetorOLAC (Toradol) IM 30 mg given. Given in the Given (Toradol) IM 30 mg right gluteus jeancarlos. Allergies verified and confirmed 5 rights. 16:12 11/10/2024 (NOW x1) Information reviewed with patient including reason for taking this Sosa Abbasi R.N. medication, signs of allergic reaction and precautions. Verbalizes Scanned understanding. - 16:14 Sosa Abbasi R.N. Ondansetron ODT 16:11 11/10 Ondansetron ODT PO 4 mg given. Allergies verified Given PO 4 mg (NOW x1) and confirmed 5 rights. Information reviewed with patient including 16:11 11/10/2024 reason for taking this medication, signs of allergic reaction and Sosa Abbasi R.N. precautions. Verbalizes understanding. - 16:12 Sosa Abbasi R.N. Scanned 1 of 1 ED ORDER SHEET (CPOE ONLY) Observed: 3:13 PM Status: F Source: [facility] Order Sheet Order Sheet [address] [address] [id number] 11/10/2024 Patient: JAQUELIN SZYMANSKI Sex: Female : 1995 Age: 29y MEASUREMENTS: Wt: 85.7 kg, Ht/Osmar: 65.0 in, BMI: 31.45 ALLERGIES: Excedrin Migraine, Neosporin (iym-rir-enmos), azithromycin, latex MEDICATION/IV/DRIP/FLUID ORDERS Order Description Priority Entered Acknowledged Completed KetorOLAC (Toradol) IM30 mg 15:46 11/10/2024 16:10 16:14 (NOW x1) Rodney Mace D.O. 11/10/2024 11/10/2024 Sosa Tsai, Jani.N. R.NKaye Reason for ordering with alerts: Benefits outweigh risks --15:46 11/10/2024 Rodney Mace D.O. Ondansetron ODT PO4 mg 15:46 11/10/2024 16:10 16:12 (NOW x1) Rodney Mace D.O. 11/10/2024 11/10/2024 Sosa Tsai, Jani.N. R.NKaye LAB ORDERS Order Description Priority Entered Acknowledged Collected Completed Rapid COVID (SARS) Stat 15:45 11/10/2024 16:05 11/10/2024 16:05 11/10/2024 ANTIGEN TEST Stat Sosa Stout Katelyn Horst, D.O. R.N. R.NKaye 1 of 2 Order Sheet Flu Swab (Influenzae Stat 15:45 11/10/2024 16:05 11/10/2024 16:05 11/10/2024 AAg) Stat Sosa Stout Katelyn Horst, D.O. R.N. R.NKaye DIAGNOSTIC STUDY ORDERS Order Description Priority Entered Acknowledged Completed STAFF ORDERS Order Description Priority Entered Acknowledged Collected Completed [Electronically signed by Rodney Mace D.O. (11/10/2024 17:54 EST)] 2 of 2 ED SUPER BILL Observed: 11/10/2024 3:13 PM Status: F Source: [address] [place] [address] [id number] 11/10/2024 Patient: JAQUELIN SZYMANSKI Sex: Female : 1995 Age: 29y Item Facility Professional Category Description Code Code Quantity Fee Total Nurse/E/M EMERGENCY 996994 1 $0.00 $0.00 DEPARTMENT VISIT HIGH/URGENT SEVERITY (37764-12) Nurse/IV/IM/Infusions IM/SQ (93635) 708699 1 $0.00 $0.00 Grand Total $0.00 Providers Rodney Mace D.O. Chief Complaint COUGH, SORE THROAT, SINUS PAIN, CHILLS and MUSCLE ACHES. Principal Diagnosis Influenza type A with upper respiratory infection. 1 of 2 [facility] ICD-10 Codes J11.1: Influenza due to unidentified influenza virus with other respiratory manifestations J06.9: Acute upper respiratory infection, unspecified 2 of 2 ED NURSES CLINICAL NOTE Observed: 2024 3:13 PM Status: F Source: [facility] Nurse Narrative Nurse Clinical Narrative [facility] [address] [place] [address] [phone] 11/10/2024 Patient: JAQUELIN SZYMANSKI Sex: Female : 1995 Age: 29y Disposition: Discharge to Home Disposition Decision Time: 17:55 11/10/2024 Departure Time: 18:16 11/10/2024 TRIAGE Arrived by private vehicle. Historian: patient. ( son had Flu A and COVID dg'd on Monday). Triage time: 15:09 11/10/2024. Acuity: LEVEL 3. Chief Complaint: COUGH, known FLU EXPOSURE, SINUS CONGESTION and known COVID-19 EXPOSURE. Onset. (Monday). The patient has had chest congestion, fatigue, a headache and diarrhea. SEPSIS SCREEN: NEGATIVE. SIRS criteria negative. Possible sources of infection: COVID-19. -- 15:20 11/10/24 TOMAS Rodríguez R.N. 15:11/10/24. BP: 127/85 MAP: 99. HR: 90. RR: 18. O2 saturation: 99% Temperature: 97.8 F. Pain level now 10/10. -- 15:11/10/24 TOMAS Rodríguez R.N. Measurements: 15:11/10/24 Wt: 85.7 kg, Ht/Osmar: 65.0 in, BMI: 31.45 -- 15:11/10/24 TOMAS Rodríguez R.N. Medications: Xanax 0.5 mg tablet: 1 once a day. -- 15:11/10/24 TOMAS Rodríguez R.N. topiramate 25 mg tablet: 1 once a day. -- 15:11/10/24 TOMAS Rodríguez R.N. lurasidone 40 mg tablet: 1 once a day. -- 15:11/10/24 TOMAS Rodríguez R.N. levothyroxine 125 mcg tablet: 1 once a day. -- 15:11/10/24 TOMAS Rodríguez R.N. 1 of 4 Nurse Narrative Jardiance 10 mg tablet: 1 once a day. -- 15:11/10/24 TOMAS Rodríguez R.N. fludrocortisone 0.1 mg tablet: 1 once a day. -- 15:11/10/24 TOMAS Rodríguez R.N. eletriptan 40 mg tablet: 1 tablet as directed. (onset and every 2 hours) -- 15:11/10/24 TOMAS Rodríguez R.N. dexamethasone 0.5 mg tablet: 1 once a day. -- 15:11/10/24 TOMAS Rodríguez R.N. clomipramine 50 mg capsule: 4 capsule twice a day. (200 mg total) -- 15:11/10/24 TOMAS Rodríguez R.N. atorvastatin 10 mg tablet: 1 tablet once a day. -- 15:11/10/24 TOMAS Rodríguez R.N. Aimovig Autoinjector 70 mg/mL subcutaneous auto-injector: 1 once a month. -- 15:11/10/24 TOMAS Rodríguez R.N. Allergies: Excedrin Migraine -- 15:11/10/24 TOMAS Rodríguez R.N. Neosporin (tui-qbe-jppzc) -- 15:11/10/24 TOMAS Rodríguez R.N. latex -- 15:11/10/24 TOMAS Rodríguez R.N. azithromycin -- 15:11/10/24 TOMAS Rodríguez R.N. Problems: Davonte's Disease -- 15:11/10/24 TOMAS Rodríguez R.N. Migraine Headache -- 15:11/10/24 TOMAS Rodríguez R.N. Grave's Disease -- 15:11/10/24 EST Brianna Rodríguez, R.N. Diabetes Mellitus Type 2 -- 15:17 11/10/24 TOMAS Rodríguez R.N. Seizure -- 15:11/10/24 TOMAS Rodríguez R.N. ADDITIONAL SURGERIES: Gallbladder Surgery -- 15:11/10/24 TOMAS Rodríguez R.N. Appendectomy -- 15:11/10/24 TOMAS Rodríguez R.N. -- 15:11/10/24 TOMAS Rodríguez R.N. Total abdominal hysterectomy -- 15:11/10/24 TOMAS Rodríguez R.N. History 15:11/10/24. PAST MEDICAL HX: No menstrual periods. Denies current . SOCIAL HX: Never smoker. No alcohol use or drug use. The patient has not traveled outside the [place] Infectious disease exposure: No infectious disease exposure. 2 of 4 Nurse Narrative ABUSE ASSESSMENT: The patient answered yes to the question(s) Do you feel safe in your home? and no to the question(s) Are you afraid to go home?. Abuse denied. No suspicion of abuse. SELF HARM ASSESSMENT: Self harm assessment was performed. The patient answered no to the question(s) Have you recently felt down, depressed, or hopeless? and Do you have thoughts of harming or killing yourself?. FALL RISK ASSESSMENT: Fall risk assessment completed. No risk factors identified. -- 15:11/10/24 TOMAS Rodríguez R.N. Interventions 15:11/10/24. Advanced care plan discussed with patient (Full Code). -- 15:11/10/24 TOMAS Rodríguez R.N. PHYSICAL ASSESSMENT 16:11/10/24. GENERAL / NEURO / PSYCH: Alert. Oriented X 4. Appears in no acute distress. HEENT: Pupils equal, round and reactive to light. RESPIRATORY: Respirations not labored. Nonproductive cough. Breath sounds within normal limits. CVS: Normal sinus rhythm noted. Capillary refill less than 2 seconds. Pulses within normal limits. GI / : The patient has had decreased oral intake. The patient has had nausea and diarrhea. Emesis noted. Abdomen soft and nontender and normal bowel sounds. SKIN: Skin intact. Skin is warm and dry. Normal skin turgor. -- 16:11/10/24 TOMAS Abbasi R.N. 16:06 11/10/24. Pain level now 8/10. Describes the pain as tightness. -- 16:07 11/10/24 TOMAS Abbasi R.N. NURSING PROGRESS NOTES 15:42 11/10/24. ED physician at the patient's bedside. -- 15:42 11/10/24 TOMAS Abbasi R.N. 16:05 11/10/24. Patient ID band checked. COVID-19 specimen obtained by nurse via nasal specimen. Labeled in the presence of the patient and sent to lab. Patient ID band checked. Flu swab obtained by nurse via nasal swab. Labeled in the presence of the patient and sent to lab. -- 16:06 11/10/24 TOMAS Abbasi R.N. 16:11 11/10/24. Ondansetron ODT PO 4 mg given. Allergies verified and confirmed 5 rights. Information reviewed with patient including reason for taking this medication, signs of allergic reaction and precautions. Verbalizes understanding. -- 16:12 11/10/24 TOMAS Abbasi R.N. 3 of 4 Nurse Narrative 16:12 11/10/24. KetorOLAC (Toradol) IM 30 mg given. Given in the right gluteus jeancarlos. Allergies verified and confirmed 5 rights. Information reviewed with patient including reason for taking this medication, signs of allergic reaction and precautions. Verbalizes understanding. -- 16:14 11/10/24 TOMAS Abbasi R.N. 16:58 11/10/24. Flu A+. ED physician and charge nurse notifed of critical value. Orders were not received. -- 16:58 11/10/24 TOMAS Gayle R.N. DISPOSITION / DISCHARGE 18:11/10/24. BP: 114/73 MAP: 80 mmHg. HR: 70 bpm. -- 18:17 11/10/24 TOMAS Abbasi R.N. 18:04 11/10/24. HR: 71 bpm. O2 saturation: 100%. -- 18:17 11/10/24 TOMAS Abbasi R.N. Cardiac rhythm: normal sinus rhythm. Departure time: 18:16 11/10/2024. Condition at departure: stable. No learning barriers present. Discharge instructions provided and reviewed with the patient. Patient verbalized understanding. Written instructions provided in Scottish. The patient was discharged home. The patient left ambulatory and via private vehicle. -- 18:18 11/10/24 EST Sosa Abbasi R.N. (Electronically signed by Sosa Abbasi R.N. 11/10/24 18:18:47 EST) Generated by [facility] 4 of 4 URINALYSIS Collected: 4 1:24 PM Status: F Source: [facility] TYPE CODE TESTS RESULT OUT OF RANGE REFERENCE UNITS LAB URINALYSIS(KARMA NC) URINALYSIS Result Comment: URINALYSIS LAB Specimen Type(LOINC) Specimen Type R LAB Color(LOINC) Color keven NORMAL: YELLOW LAB Clarity(LOINC) Clarity clear PEARL L: CLEAR LAB ph(LOINC) ph 5 NORMAL: 5.0-8.0 LAB Protein(LOINC) Protein 30 Abnormal PEARL L: NEGATIVE LAB Glucose(LOINC) Glucose 250 Abnormal PEARL L: NORMAL LAB Ketone(LOINC) Ketone 50 Abnormal NORMAL : NEGATIVE LAB Bilirubin(LOIN C) Bilirubin 1 Abnormal NORMAL: NEGATIVE LAB Blood(LOINC) Blood 25 Abnormal NORMAL: NEGATIVE LAB Urobilinog(KARMA NC) Urobilinog NORM NORMAL: NORMAL LAB Sp [place](LOINC) Sp [place] 1.025 NORMAL: 1.010-1.030 LAB Nitrite(LOINC) Nitrite NEG PEARL L: NEGATIVE LAB Leukocytes(KARMA NC) Leukocytes NEG NORMAL: NEGATIVE LAB Microscopic(LO INC) Microscopic SEE BELOW Result Comment: MICROSCOPIC LAB Wbc(LOINC) Wbc NONE 0-5/hpf LAB Rbc(LOINC) Rbc 0-5 0-3/hpf LAB Casts(LOINC) Casts NONE LAB Crystals(LOINC ) Crystals NONE LAB Amorphous(LOIN C) Amorphous NONE LAB Bacteria(LOINC ) Bacteria NONE LAB Epi Cells(LOINC) Epi Cells OCC LAB Mucous(LOINC) Mucous NONE LAB Yeast(LOINC) Yeast NONE Performed By: #### [id number] ## ## [facility],[address] [place] [address] CBC + DIFF Collected: 4 11:53 AM Status: F Source: [facility] TYPE CODE TESTS RESULT OUT OF RANGE REFERENCE UNITS LAB CBC + DIFF(LOINC) CBC + DIFF Result Comment: CBC-COMPLETE BLOOD COUNT LAB WBC(LOINC) WBC 7.2 4.5 - 10.8 x 10EE3/UL LAB RBC(LOINC) RBC 5.35 High 4.10 - 5.30 x 10EE6/UL LAB HEMOGLOBIN(KARMA NC) HEMOGLOBIN 13.7 12.0 - 16.0 g/dl LAB HEMATOCRIT(KARMA NC) HEMATOCRIT 40.0 34.0 - 46.0 % LAB MCV(LOINC) MCV 75 Low 80 - 99 fl LAB MCH(LOINC) MCH 26 Low 27 - 33 pg LAB MCHC(LOINC) MCHC 34 32 - 36 X10 3 LAB RDW/CV(LOINC) RDW/CV 16.8 High 12.0 - 15.6 % LAB PLATELET(LOINC ) PLATELET 424 150 - 450 x10EE3/UL LAB MPV(LOINC) MPV 7.9 6.6 - 10.5 fl Result Comment: AUTOMATED DI FFERENTIAL LAB NEUT %(LOINC) NEUT % 59.0 46.0 - 76.0 % LAB LYMPH %(LOINC) LYMPH % 32.0 20.0 - 45.0 % LAB MONOS %(LOINC) MONOS % 8.3 0.0 - 10.0 % LAB EO %(LOINC) EO % 0.3 0.0 - 7.0 % LAB BASO %(LOINC) BASO % 0.4 0.0 - 2.0 % LAB Lymph #(LOINC) Lymph # 2.29 0.80 - 2.80 x10EE 3/UL LAB Neut #(LOINC) Neut # 4.22 1.50 - 7.10 x10EE3 /UL LAB Cannon #(LOINC) Cannon # 0.59 0.20 - 1.00 x10EE3 /UL LAB EO #(LOINC) EO # 0.02 0.00 - 0.50 x10EE3/U L LAB Baso #(LOINC) Baso # 0.03 0.00 - 0.10 x10EE3 /UL LAB MANUAL DIFF(LOINC) MANUAL DIFF N/A LAB MORPHOLOGY(KARMA NC) MORPHOLOGY N/A Performed By: #### [id number] ## ## [facility] [address] [address] TROPONIN Collected: 11:53 AM Status: F Source: [facility] TYPE CODE TESTS RESULT OUT OF RANGE REFERENCE UNITS LAB HS TROPONIN(LOINC) HS TROPONIN <4.0 0.0 - 51.4 pg/mL Performed By: #### [id number] ## ## [address] [address] CORONAVIRUS (SARS) ANTIGEN TEST Collect ed: 10/20/2024 11:53 AM Status: F Source: [facility] TYPE CODE TESTS RESULT OUT OF RANGE REFERENCE UNITS LAB SARS ANTIGEN(LOINC) SARS ANTIGEN NEGATIVE NORMAL: NEGATIVE LAB INTERNAL CONTROL(LOINC) INTERNAL CONTROL PASS LAB EXTERNAL QC DONE?(LOINC) EXTERNAL QC DONE? YES LAB SEND TO IC?(LOINC) SEND TO IC? NO Result Comment: SARS-CoV-2 THIS TEST IS BEING USED UNDER THE FDA EUA PROCEDURE. THIS ASSAY HAS BEEN VALIDATED AT [facility] FOR USE WITH NASAL AND NASOPHARYNGEAL SWAB SPECIMENS. INTERPRETIVE DATA TEST RESULTS SHOULD ALWAYS BE CONSIDERED IN THE CONTEXT OF CLINICAL OBSERVATIONS AND EPIDEMIOLOGICAL DATA IN MAKING FINAL DIAGNOSIS AND PATIENT MANAGEMENT DECISIONS. PATIENT MANAGEMENT SHOULD FOLLOW CURRENT CDC GUIDELINES. THE ANATOLIY SARS ANTIGEN LESTER DOES NOT DIFFERENTIATE BETWEEN SARS-CoV & SARS-CoV-2. A POSITIVE TEST RESULT INDICATES THE PRESENCE OF SARS-CoV-2 NUCLEOCAPSID PROTEIN ANTIGEN, AND THE PATIENT IS INFECTED WITH THE VIRUS AND PRESUMED TO BE CONTAGIOUS. A NEGATIVE TEST RESULT FOR THIS TEST MEANS THAT SARS-CoV-2 NUCLEOCAPSID PROTEIN ANTIGEN WAS NOT PRESENT IN THE SPECIMEN ABOVE THE LIMIT OF DETECTION. HOWEVER, A NEGATIVE RESULT DOES NOT RULE OUT COVID-19 AND SHOULD NOT BE USED THE SOLE BASIS FOR TREATMENT OR PATIENT MANAGEMENT DECISIONS. A NEGATIVE RESULT DOES NOT EXCLUDE THE POSSIBILITY OF COVID-19. NEGATIVE RESULTS, FROM PATIENTS WITH SYMPTOM ONSET BEYOND FIVE DAYS, SHOULD BE TREATED PRESUMPTIVE AND CONFIRMATION WITH A MOLECULAR ASSAY, IF NECESSARY, FOR PATIENT MANAGEMENT, MAY BE PERFORMED. WHEN DIAGNOSTIC TESTING IS NEGATIVE, THE POSSIBLILTY OF A FALSE NEGATIVE RESULT SHOULD BE CONSIDERED IN THE CONTEXT OF A PATIENT'S RECENT EXPOSURES AND THE PRESENCE OF CLINICAL SIGNS AND SYMPTOMS CONSISTENT WITH COVID-19. THE POSSIBILITY OF A FALSE NEGATIVE RESULT SHOULD ESPECIALLY BE CONSIDERED IF THE PATIENT'S RECENT EXPOSURES OR CLINICAL PRESENTATION INDICATE THAT COVID-19 IS LIKELY, AND DIAGNOSTIC TESTS FOR OTHER CAUSES OF ILLNESS (e.g., OTHER RESPIRATORY ILLNESS) ARE NEGATIVE. IF COVID-19 IS STILL SUSPECTED BASED ON EXPOSURE HISTORY TOGETHER WITH OTHER CLINICAL FINDINGS, RE-TESTING SHOULD BE CONSIDERED BY HEALTHCARE PROVIDERS IN CONSULTATION WITH PUBLIC HEALTH AUTHORITIES. Performed By: #### [id number] ## ## [facility],[address] [place] [address] CMP WITH EGFR Collected: 4 11:53 AM Status: F Source: [facility] TYPE CODE TESTS RESULT OUT OF RANGE REFERENCE UNITS LAB CMP with eGFR(LOINC) CMP with eGFR Result Comment: COMPREHENSIV E METABOLIC PANEL LAB SODIUM(LOINC) SODIUM 139 136 - 145 mmol/l LAB POTASSIUM(LOIN C) POTASSIUM 4.0 3.5 - 5.1 mmol/L LAB CHLORIDE(LOINC ) CHLORIDE 103 98 - 107 mmol/L LAB CO2(LOINC) CO2 25.3 21.0 - 32.0 mmol/L LAB GLUCOSE(LOINC) GLUCOSE 90 74 - 106 mg/dl LAB BUN(LOINC) BUN 12 7 - 18 mg/dl LAB CREATININE(KARMA NC) CREATININE 1.08 High 0.55 - 1.02 mg/dl LAB AST/SGOT(LOINC ) AST/SGOT 35 13 - 39 U/L LAB ALK PHOS(LOINC) ALK PHOS 131 High 46 - 116 U/L LAB CALCIUM(LOINC) CALCIUM 9.5 8.5 - 10.1 mg/dl LAB TOTAL PROTEIN(LOINC) TOTAL PROTEIN 8.3 High 6.4 - 8.2 g/dl LAB ALBUMIN(LOINC) ALBUMIN 3.9 3.4 - 5.0 g/dL LAB GLOBULIN(LOINC ) GLOBULIN 4.4 High 1.5 - 3.8 G/DL LAB A/G RATIO(LOINC) A/G RATIO 0.9 0.9 - 1.6 LAB TOTAL BILI(LOINC) TOTAL BILI 1.4 High 0.2 - 1.0 mg/dl LAB B/C RATIO(LOINC) B/C RATIO 11 0 - 30 ratio LAB ALT/SGPT(LOINC ) ALT/SGPT 54 16 - 63 U/L LAB ANION GAP(LOINC) ANION GAP 15 10 - 20 mmol/L LAB AGE(LOINC) AGE 29 years LAB eGFR(LOINC) eGFR 59 Low 60 - 999 ML/MINUT E LAB eGFR(AA)(LOINC ) eGFR(AA) >60 60 - 999 ML/MINUT E Result Comment: ACCORDING TO THE NATIONAL KIDNEY DISEASE EDUCATION PROGRAM(NKDE), A NORMAL eGFR IS A VALUE GREATER THAN OR EQUAL TO 60 ML/MIN/1.73 SQ METERS. CHRONIC KIDNEY DISEASE: <60mL/MIN/1.73 SQ METERS KIDNEY FAILURE: <15mL/MIN/1.73 SQ METERS THIS TEST SHOULD ONLY BE USED FOR PATIENTS 18 YEARS OF AGE AND OLDER. Performed By: #### [id number] ## ## [place] [address] INFLUENZA VIRUS RAPID A/B Observed: 09/23 11:53 AM Status: F Source: [facility] INFLUENZA A NEGATIVE INFLUENZA B NEGATIVE INTERNAL NEG QC PASS INTERNAL POS QC PASS EXTERNAL QC DONE? YES SEND TO IC? [facility] NEGATIVE TEST RESULT DOES NOT EXCLUDE INFECTION WITH INFLUENZA A OR B. THEREFORE, THE RESULTS OBTAINED FROM THIS FLU TEST SHOULD BE USED IN CONJUCTION WITH CLINICAL FINDINGS TO MAKE AN ACCURATE DIAGNOSIS. A POSITIVE RESULT DOES NOT RULE OUT CO-INFECTIONS WITH OTHER PATHOGENS OR IDENTIFY ANY SPECIFIC INFLUENZA A VIRUS SUBTYPE.CO-INFECTION WITH INFLUENZA A AND B IS RARE. IT IS RECOMMENDED THAT DUAL POSITIVE RESULTS BE CONFIRMED BY VIRAL CULTURE OR AN FDA-CLEARED INFLUENZA A AND B MOLECULAR ASSAY. INDIVIDUALS WHO HAVE RECEIVED NASALLY ADMINISTERED INFLUENZA A VACCINE MAY TEST POSITIVE IN COMMERCIALLY AVAILABLE INFLUENZA RAPID DIAGNOSTIC TESTS FOR UP TO THREE DAYS. RESULT CRITICAL? NO Performed By: #### [id number] ## ## [place] [id number] CHEST 1 VIEW Observed: 10/20/2024 11:38 AM Status: F Source: [place] [address] Patient: JAQUELIN SZYMANSKI Phone#: : 1995 Age: 29 Gender: F Pt. Type: ER Account: [id number] Location: [id number] Ordering: BRYCE JUSTIN Exam Date: 10/20/2024/11:32 Family Phys: KEVIN BRADLEY Charge Code: 514162 Physician: [place] Order #: [id number] Dose#: PROCEDURE: X-RAY CHEST 1 VIEW COMPARISON: [facility], XR, CHEST 1 VIEW, 05/10/2024, 20:31. INDICATIONS: Cough. FINDINGS: LUNGS: Normal. No significant pulmonary parenchymal abnormalities. VASCULATURE: Normal. Unremarkable pulmonary vasculature. CARDIAC: Normal. No cardiac silhouette abnormality or cardiomegaly. MEDIASTINUM: Normal. No visible mass or adenopathy. PLEURA: Normal. No effusion or pleural thickening. BONES: Normal. No fracture or visible bony lesion. OTHER: Negative. CONCLUSION: No acute disease. Dictated by: Gretchen Espinoza MD on 10/20/2024 at 20:03 Approved by: Gretchen Espinoza MD on 10/20/2024 at 20:04 ED ORDER SHEET (CPOE ONLY) Observed: 11:11 AM Status: F Source: [facility] Order Sheet Order Sheet [address] [place] [address] [id number] 10/20/2024 Patient: JAQUELIN SZYMANSKI Sex: Female : 1995 Age: 29y MEASUREMENTS: Wt: 86.6 kg, Ht/Osmar: 65.0 in, BMI: 31.78 ALLERGIES: Excedrin Migraine, Neosporin ([id number]), azithromycin, latex MEDICATION/IV/DRIP/FLUID ORDERS Order Description Priority Entered Acknowledged Completed IV NS 0.9 %1000 mL at 999 11:30 10/20/2024 11:31 12:06 mL/hr (NOW x1) Bryce Justin, 10/20/2024 10/20/2024 Tila Conteh, Jani.N. R.N. KetorOLAC (Toradol) IVP30 mg 11:30 10/20/2024 11:31 12:06 (NOW x1) Bryce Justin, 10/20/2024 10/20/2024 Tila Conteh R.N. R.N. Reason for ordering with alerts: Benefits outweigh risks --11:30 10/20/2024 Bryce Justin D.O. Acetaminophen (Tylenol) 14:12 10/20/2024 14:22 14:28 PO975 mg (NOW x1) Bryce Justin, 10/20/2024 10/20/2024 Tila Conteh R.N. RRicky Reason for ordering with alerts: Benefits outweigh risks --14:12 10/20/2024 Bryce Justin D.O. 1 of 3 Order Sheet LAB ORDERS Order Description Priority Entered Acknowledged Collected Completed CBC w Diff Stat Stat 11:30 10/20/2024 11:31 10/20/2024 12:01 10/20/2024 Tila Alston Lemasters, D.O. R.N. R.NKaye CMP Stat Stat 11:30 10/20/2024 11:31 10/20/2024 12:01 10/20/2024 Tila Alston Lemasters, D.O. R.N. R.NKaye EKG - ED Stat Stat 11:30 10/20/2024 11:31 10/20/2024 12:01 10/20/2024 Tila Alstno Lemasters, D.O. R.N. R.NKaye Troponin-I Stat Stat 11:30 10/20/2024 11:31 10/20/2024 12:01 10/20/2024 Tila Alston Lemasters, D.O. R.N. R.N. Urinalysis Stat Stat 11:30 10/20/2024 11:31 10/20/2024 12:01 10/20/2024 Tila Alston Lemasters, D.O. R.N. R.NKaye Rapid COVID (SARS) Stat 11:30 10/20/2024 11:31 10/20/2024 12:01 10/20/2024 ANTIGEN TEST Stat Tila Alston Lemasters, D.O. R.N. R.NKaye Flu Swab (Influenzae Stat 11:30 10/20/2024 11:31 10/20/2024 12:01 10/20/2024 AAg) Stat Tila Alston Lemasters, D.O. R.NKaye RKayeNKaye DIAGNOSTIC STUDY ORDERS 2 of 3 Order Sheet Order Description Priority Entered Acknowledged Completed Chest 1V Stat Stat 11:30 10/20/2024 11:31 12:01 Bryce Justin, 10/20/2024 10/20/2024 Tila Conteh R.N. RRicky Reason for Study: Cough STAFF ORDERS Order Description Priority Entered Acknowledged Collected Completed IV Saline Lock 11:30 10/20/2024 11:31 10/20/2024 12:01 10/20/2024 Tila Alston Lemasters, D.O. R.N. RKayeNKaye [Electronically signed by Bryce Justin D.O. (11/02/2024 07:55 EST)] 3 of 3 ED PHYSICIAN DISCHARGE REPORT Observed: 10/20/2024 11:11 AM Status: F Source: [facility] Discharge Instructions Discharge Summary [address] [address] [id number] 10/20/2024 Patient: JAQUELIN SZYMANSKI Sex: Female : 1995 Age: 29y Thank you for visiting [facility]. You have been evaluated today by Bryce Justin D.O. for the following condition(s): Principal Diagnosis Viral syndrome INSTRUCTIONS Prescription Medications: ketorolac 10 mg tablet: Take 1 tablet by mouth every eight hours as needed for pain for 5 days, dispense 15 tablet. Refills 0. Pharmacy: [facility] - [address] [place] [address]. ondansetron 4 mg disintegrating tablet: Take 1 tablet on tongue every eight hours for nausea/vomiting for 5 days, dispense 15 tablet. Refills 0. Pharmacy: [facility] - [address] [place] [address]. Follow-up: Follow up with your healthcare provider in two days. Call for an appointment. You have been given the following additional information: Viral Syndrome (Adult) 1 of 4 Discharge Instructions Patient Signature Facility [facility] [place] Date/Time General Instructions with ExitWriter [place] [address] [place] [address] [phone] 10/20/2024 Patient: JAQUELIN SZYMANSKI Sex: Female : 1995 Age: 29y Thank you for visiting [facility]. You have been evaluated today by Bryce Justin D.O. for the following condition(s): Principal Diagnosis Viral syndrome INSTRUCTIONS Prescription Medications: ketorolac 10 mg tablet: Take 1 tablet by mouth every eight hours as needed for pain for 5 days, dispense 15 tablet. Refills 0. Pharmacy: [facility] - [address] [place] [address]. ondansetron 4 mg disintegrating tablet: Take 1 tablet on tongue every eight hours for nausea/vomiting for 5 days, dispense 15 tablet. Refills 0. Pharmacy: [facility] - [address] [place] [address]. Follow-up: Follow up with your healthcare provider in two days. Call for an appointment. 2 of 4 Discharge Instructions ADDITIONAL INFORMATION Viral Syndrome (Adult) A viral illness may cause a number of symptoms such as fever. Other symptoms depend on the part of the body that the virus affects. If it settles in your nose, throat, and lungs, it may cause cough, sore throat, congestion, runny nose, headache, earache and other ear symptoms, or shortness of breath. If it settles in your stomach and intestinal tract, it may cause nausea, vomiting, cramping, and diarrhea. Sometimes it causes generalized symptoms like aching all over, feeling tired, loss of energy, or loss of appetite. A viral illness usually lasts anywhere from several days to several weeks, but sometimes it lasts longer. In some cases, a more serious infection can look like a viral syndrome in the first few days of the illness. You may need another exam and additional tests to know the difference. Watch for the warning signs listed below for when to seek medical advice. Home care Follow these guidelines for taking care of yourself at home: If symptoms are severe, rest at home for the first 2 to 3 days. Stay away from cigarette smoke - both your smoke and the smoke from others. You may use fmbw-rds-wvptwnt acetaminophen or ibuprofen for fever, muscle aching, and headache, unless another medicine was prescribed for this. If you have chronic liver or kidney disease or ever had a stomach ulcer or gastrointestinal bleeding, talk with your healthcare provider before using these medicines. No one who is younger than 18 and ill with a fever should take aspirin. It may cause severe disease or . Your appetite may be poor, so a light diet is fine. Avoid dehydration by drinking 8 to 12, 8-ounce glasses of fluids each day. This may include water; orange juice; lemonade; apple, grape, and cranberry juice; clear fruit drinks; electrolyte replacement and sports drinks; and decaffeinated teas and coffee. If you have been diagnosed with a kidney disease, ask your healthcare provider how much and what types of fluids you should drink to prevent dehydration. If you have kidney disease, drinking too much fluid can cause it build up in the your body and be dangerous to your health. Pkji-ayp-tlxdxrf remedies won't shorten the length of the illness but may be helpful for symptoms such as cough, sore throat, nasal and sinus congestion, or diarrhea. Don't use decongestants if you have high blood pressure. 3 of 4 Discharge Instructions Follow-up care Follow up with your healthcare provider if you do not improve over the next week. Call 911 Call 911 if any of the following occur: Convulsion Feeling weak, dizzy, or like you are going to faint Chest pain, or more than mild shortness of breath When to seek medical advice Call your healthcare provider right away if any of these occur: Cough with lots of colored sputum (mucus) or blood in your sputum Chest pain, shortness of breath, wheezing, or trouble breathing Severe headache; face, neck, or ear pain Severe, constant pain in the lower right side of your belly (abdominal) Continued vomiting (can't keep liquids down) Frequent diarrhea (more than 5 times a day); blood (red or black color) or mucus in diarrhea Feeling weak, dizzy, or like you are going to faint Extreme thirst Fever of 100.4F (38C) or higher, or as directed by your healthcare provider 4 of 4 ED NURSES CLINICAL NOTE Observed: 2023 11:11 AM Status: F Source: [facility] Nurse Narrative Nurse Clinical Narrative [facility] [address] [place] [address] [phone] 10/20/2024 Patient: JAQUELIN SZYMANSKI Sex: Female : 1995 Age: 29y Disposition: Discharge to Home Disposition Decision Time: 14:42 10/20/2024 Departure Time: 14:53 10/20/2024 TRIAGE Arrived by private vehicle. Historian: patient. Accompanied by family. Triage time: 11:11 10/20/2024. Acuity: LEVEL 3. Chief Complaint: COUGH and SORE THROAT and SINUS CONGESTION and CHILLS (headache, chest pain). Onset. (). -- 11:25 10/20/24 TOMAS Rodríguez R.N. 11:10/20/24. SEPSIS SCREEN: NEGATIVE. SIRS criteria negative: heart rate greater than 90. Possible sources of infection: COVID-19. -- 11:38 10/20/24 TOMAS Rodríguez R.N. 11:10/20/24. BP: 112/73 MAP: 86. HR: 120. RR: 19. O2 saturation: 97% Temperature: 97.8 F. Pain level now 5/10. Describes the pain as aching. -- 11:10/20/24 TOMAS Rodríguez R.N. Measurements: 11:10/20/24 Wt: 86.6 kg, Ht/Osmar: 65.0 in, BMI: 31.78 -- 11:10/20/24 TOMAS Rodríguez R.N. Medications: Xanax 0.5 mg tablet: 1 once a day. -- 11:10/20/24 TOMAS Rodríguez R.N. topiramate 25 mg tablet: 1 once a day. -- 11:10/20/24 TOMAS Rodríguez R.N. lurasidone 40 mg tablet: 1 once a day. -- 11:10/20/24 TOMAS Rodríguez R.N. 1 of 4 Nurse Narrative Aimovig Autoinjector 70 mg/mL subcutaneous auto-injector: 1 once a month. -- 11:10/20/24 TOMAS Rodríguez R.N. levothyroxine 125 mcg tablet: 1 once a day. -- 11:10/20/24 TOMAS Rodríguez R.N. Jardiance 10 mg tablet: 1 once a day. -- 11:10/20/24 TOMAS Rodríguez R.N. fludrocortisone 0.1 mg tablet: 1 once a day. -- 11:10/20/24 TOMAS Rodríguez R.N. eletriptan 40 mg tablet: 1 tablet as directed. (onset and every 2 hours) -- 11:10/20/24 TOMAS Rodríguez R.N. dexamethasone 0.5 mg tablet: 1 once a day. -- 11:10/20/24 TOMAS Rodríguez R.N. clomipramine 50 mg capsule: 4 capsule twice a day. (200 mg total) -- 11:10/20/24 TOMAS Rodríguez R.N. atorvastatin 10 mg tablet: 1 tablet once a day. -- 11:10/20/24 TOMAS Rodríguez R.N. Allergies: Excedrin Migraine -- 11:19 10/20/24 TOMAS Rodríguez R.N. Neosporin (sjo-exa-dmsev) -- 11:19 10/20/24 TOMAS Rodríguez R.N. latex -- 11:19 10/20/24 TOMAS Rodríguez R.N. azithromycin -- 11:19 10/20/24 TOMAS Rodríguez R.N. Home Medications/Allergy Information Source: patient -- 11:20 10/20/24 TOMAS Rodríguez R.N. 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 Migraine Headache -- 11:20 10/20/24 TOMAS Rodríguez R.N. Grave's Disease -- 11:20 10/20/24 TOMAS Rodríguez R.N. Diabetes Mellitus Type 2 -- 11:20 10/20/24 TOMAS Rodríguez R.N. Seizure -- 11:20 10/20/24 TOMAS Rodríguez R.N. ADDITIONAL SURGERIES: Gallbladder Surgery -- 11:20 10/20/24 TOMAS Rodríguez R.N. Appendectomy -- 11:20 10/20/24 TOMAS Rodríguez R.N. -- 11:20 10/20/24 TOMAS Rodríguez R.N. Total abdominal hysterectomy -- 11:20 10/20/24 TOMAS Rodríguez R.N. History 2 of 4 Nurse Narrative 11:10/20/24. PAST MEDICAL HX: Immunizations: up-to-date. No menstrual periods. Denies current . SOCIAL HX: Never smoker. No alcohol use or drug use. The patient has not traveled outside the [place] ABUSE ASSESSMENT: The patient answered yes to the question(s) Do you feel safe in your home? and no to the question(s) Are you afraid to go home?. Abuse denied. No suspicion of abuse. SELF HARM ASSESSMENT: Self harm assessment was performed. The patient answered no to the question(s) Have you recently felt down, depressed, or hopeless? and Do you have thoughts of harming or killing yourself?. FALL RISK ASSESSMENT: Fall risk assessment completed. No risk factors identified. -- 11:25 10/20/24 TOMAS Rodríguez R.N. 11:10/20/24. SOCIAL HX: The patient has not traveled outside the [place] Infectious disease exposure: No infectious disease exposure. -- 11:38 10/20/24 TOMAS Rodríguez R.N. Interventions 11:11 10/20/24. Advanced care plan (Full Code). -- 11:25 10/20/24 TOMAS Rodríguez R.N. PHYSICAL ASSESSMENT 12:08 10/20/24. Ambulatory to room. GENERAL / NEURO / PSYCH: Alert. Oriented X 4. ( Pt started with a WALKER on Monday. She now has runny nose, feels feverish, chills. Pt is afebrile upon arrival.). HEENT: Pupils equal, round and reactive to light. Runny nose. RESPIRATORY: Respirations not labored. No cough. GI / : The patient has had nausea. SKIN: Skin is warm and dry. -- 12:23 10/20/24 TOMAS Torrez R.N. NURSING PROGRESS NOTES 11:19 10/20/24. 12-LEAD EKG: EKG time: (11:10/20/2024). 12-Lead EKG was performed by me and shown to the ED physician. -- 11:39 10/20/24 TOMAS Rodríguez R.N. 11:34 10/20/24. technology sales specialist at the patient's bedside (doing ordered chest x- ray). -- 11:34 10/20/24 TOMAS Torrez R.N. 3 of 4 Nurse Narrative 11:53 10/20/24. Site #1 started via IV in the left antecubital space with an 18g angiocath with aseptic technique, ultrasound guidance and good blood return; 1 attempt. Blood drawn: rainbow set tube(s). Labeled in the presence of the patient and sent to the lab. Saline lock flushed with 5 mL saline. -- 12:03 10/20/24 TOMAS Torrez R.N. 12:05 10/20/24. KetorOLAC (Toradol) IVP 30 mg given via Site# 1. Allergies verified and confirmed 5 rights. IV patency established. IV site checked: no pain, redness, or swelling. IV flushed thoroughly pre-medication administration. IVP given by nurse. Information reviewed with patient including reason for taking this medication. -- 12:06 10/20/24 TOMAS Torrez R.N. 12:10/20/24. IV NS 0.9 % 1000 mL started in bag#1 1000 mL at 999 mL/hr via Site# 1. Allergies verified and confirmed 5 rights. Via IV pump. IV patency established. IV site checked: no pain, redness, or swelling. IV flushed thoroughly pre-medication administration. Information reviewed with patient including reason for taking this medication. -- 12:06 10/20/24 TOMAS Torrez R.N. 12:08 10/20/24. Patient identifiers checked. Call light placed in reach. Side rails up x 2. Bed placed in lowest position. Brakes of bed on. -- 12:18 10/20/24 TOMAS Torrez R.N. 13:29 10/20/24. IV NS 0.9 %: Medication Discontinued. bag #1 infused. Total amount infused: 1000 mL. IV patency established. IV site checked: no pain, redness, or swelling. IV flushed thoroughly post-medication administration. -- 14:29 10/20/24 TOMAS Torrez R.N. 14:27 10/20/24. Acetaminophen (Tylenol) PO 975 mg given. Allergies verified and confirmed 5 rights. Information reviewed with patient including reason for taking this medication. -- 14:28 10/20/24 TOMAS Torrez R.N. DISPOSITION / DISCHARGE 14:31 10/20/24. BP: 100/48 MAP: 65 mmHg. HR: 94 bpm. -- 15:10 10/20/24 TOMAS Torrez R.N. Departure time: 14:53 10/20/2024. Condition at departure: improved. No learning barriers present. Discharge instructions provided and reviewed with the patient. Reviewed medication(s). Reviewed referral to a primary care physician for followup. Patient verbalized understanding. Written instructions provided in Scottish. The patient was discharged by the physician. The patient was discharged home. The patient left ambulatory and via private vehicle. Spouse driving. -- 15:07 10/20/24 TOMAS Torrez R.N. Departure time: 14:53 10/20/2024. -- 15:07 10/20/24 TOMAS Torrez R.N. 14:53 10/20/24. BP: 103/56 taken on left arm, while lying. MAP: 72. Pain level now 4/10. -- 15:10 10/20/24 TOMAS Torrez R.N. 14:53 10/20/24. Site #1 removed upon discharge. Catheter intact. Bandaid applied. -- 15:06 10/20/24 TOMAS Torrez R.N. (Electronically signed by Tila Torrez R.N. 10/20/24 15:10:58 EST) Generated by [facility] 4 of 4 ED VITALS FLOW SHEET Observed: 11:11 AM Status: F Source: [facility] Vitals Vital Sign Flow Sheet [place] [address] [place] [phone] 10/20/2024 Patient: JAQUELIN SZYMANSKI [facility]#: [id number] Sex: Female : 1995 Age: 29y Measurements Wt: 86.6 kg, Ht/Osmar: 65.0 in, BMI: 31.78 Measured Time BP MAP HR RR O2Sat ETCO2 Temp Pain GCS RTS 14:53 10/20/2024 103/56 72 4 14:40 10/20/2024 76 98% 14:35 10/20/2024 78 97% 13:20 10/20/2024 89 96% 13:15 10/20/2024 89 96% 13:10 10/20/2024 83 94% 13:05 10/20/2024 82 94% 13:04 10/20/2024 98/63 71 86 13:00 10/20/2024 96 94% 12:55 10/20/2024 81 95% 12:50 10/20/2024 81 95% 12:45 10/20/2024 84 94% 12:44 10/20/2024 98/53 68 85 12:40 10/20/2024 77 94% 12:30 10/20/2024 78 94% 1 of 2 Vitals Measured Time BP MAP HR RR O2Sat ETCO2 Temp Pain GCS RTS 12:25 10/20/2024 88 94% 12:24 10/20/2024 100/63 75 81 12:15 10/20/2024 81 95% 12:10 10/20/2024 97 95% 12:05 10/20/2024 105 96% 12:04 10/20/2024 106/76 84 97 12:00 10/20/2024 94 96% 11:50 10/20/2024 112 97% 11:45 10/20/2024 86 96% 11:44 10/20/2024 110/79 86 89 11:40 10/20/2024 95 97% 11:30 10/20/2024 111 98% 11:25 10/20/2024 112/73 86 111 11:25 10/20/2024 112 97% 11:21 10/20/2024 112/73 86 120 19 97% 97.8 F 5 2 of 2 ED VISIT SUMMARY Observed: 10/20/2024 11:11 AM Status: F Source: [facility] Visit Overview Visit Overview [place] [address] [place] [address] [phone] 10/20/2024 Patient: JAQUELIN SZYMANSKI Sex: Female : 1995 Age: 29y 11/02/2024 07:55 AM EST ED Arrival:11:11 10/20/2024 EST Status:not Recent Travel:no Language:eng Adv Directive: Isolation Status: Ethnicity:N Fall Risk:no risk Infectious Disease Exposure:no Measurements:5'5 / 165.1 Self-Harm Status:risk Sepsis Screen:negative cm 191.0 lb / 86.6 kg Chief Complaint:CHILLS, COUGH, SINUS CONGESTION, SORE THROAT, (headache, chest pain ), and ( ) ALLERGIES azithromycin Excedrin Migraine latex Neosporin (eyl-znz-pulyu) HOME MEDICATIONS Aimovig Autoinjector 70 mg/mL subcutaneous auto-injector: 1 once a month. atorvastatin 10 mg tablet: 1 tablet once a day. Visit Overview clomipramine 50 mg capsule: 4 capsule twice a day. (200 mg total) dexamethasone 0.5 mg tablet: 1 once a day. eletriptan 40 mg tablet: 1 tablet as directed. (onset and every 2 hours) fludrocortisone 0.1 mg tablet: 1 once a day. Jardiance 10 mg tablet: 1 once a day. levothyroxine 125 mcg tablet: 1 once a day. lurasidone 40 mg tablet: 1 once a day. topiramate 25 mg tablet: 1 once a day. Xanax 0.5 mg tablet: 1 once a day. 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 Immunizations: up-to-date Migraine Headache No menstrual periods Seizure PAST SURGICAL HISTORY Appendectomy Gallbladder Surgery Total abdominal hysterectomy SOCIAL HISTORY Smoking status: No Alcohol use: No Drug use: No ED COURSE MEDICATIONS GIVEN IN EMERGENCY DEPARTMENT 12:05 10/20/24 KetorOLAC (Toradol) IVP 30 mg 12:06 10/20/24 IV NS 0.9 % 1000 mL 999 mL/hr 2 4 Visit Overview 14:27 10/20/24 Acetaminophen (Tylenol) PO 975 mg IV SITE INFORMATION INTAKE OUTPUT REASSESMENT (most recent) 12:08 10/20/24. Ambulatory to room. GENERAL / NEURO / PSYCH: Alert. Oriented X 4. ( Pt started with a WALKER on Monday. She now has runny nose, feels feverish, chills. Pt is afebrile upon arrival.). HEENT: Pupils equal, round and reactive to light. Runny nose. RESPIRATORY: Respirations not labored. No cough. GI / : The patient has had nausea. SKIN: Skin is warm and dry. VITAL SIGNS First Vitals Last Vitals Temp 11:21 10/20/24 97.8 F Temp 14:53 10/20/24 BP 11:21 10/20/24 112/73 BP 14:53 10/20/24 103/56 HR 11:21 10/20/24 120 HR 14:53 10/20/24 RR 11:21 10/20/24 19 RR 14:53 10/20/24 O2 Sat 11:21 10/20/24 97% O2 Sat 14:53 10/20/24 Pain 11:21 10/20/24 5 Pain 14:53 10/20/24 4 ETCO2 11:21 10/20/24 ETCO2 14:53 10/20/24 GCS 11:21 10/20/24 GCS 14:53 10/20/24 RTS 11:21 10/20/24 RTS 14:53 10/20/24 PROCEDURES NURSING INTERVENTIONS LABS / STUDIES LABS / STUDIES ORDERED CBC w Diff Chest 1V CMP EKG - ED Flu Swab (Influenzae AAg) Rapid COVID (SARS) ANTIGEN TEST 3 of 4 Visit Overview Troponin-I Urinalysis CLINICAL IMPRESSION VIRAL SYNDROME 4 of 4 ED SUPER BILL Observed: 10/20/2024 11:11 AM Status: F Source: [address] [place] [address] [phone] 10/20/2024 Patient: JAQUELIN SZYMANSKI Sex: Female : 1995 Age: 29y Item Facility Professional Category Description Code Code Quantity Fee Total Nurse/E/M EMERGENCY 084211 1 $0.00 $0.00 DEPARTMENT VISIT HIGH/URGENT SEVERITY (29134-48) Nurse/IV/IM/Infusions Hydration 395430 1 $0.00 $0.00 additional hour (23897) Nurse/IV/IM/Infusions IVP initial 761480 1 $0.00 $0.00 (52819) Grand Total $0.00 Providers Bryce Justin D.O. Chief Complaint COUGH, MUSCLE ACHES and FLU. 1 of 2 Superbill Principal Diagnosis Viral syndrome ICD-10 Codes B34.9: Viral infection, unspecified 2 of 2 ED PHYSICIAN CLINICAL REPORT Observed: 1 12/21/2023 11:11 AM Status: F Source: [facility] Narrative Physician Clinical [address] [place] [address] [phone] 10/20/2024 Patient: JAQUELIN SZYMANSKI Sex: Female : 1995 Age: 29y Disposition: Discharge to Home Disposition Decision Time: 14:42 10/20/2024 Departure Time: 14:53 10/20/2024 Measurements Wt: 86.6 kg, Ht/Osmar: 65.0 in, BMI: 31.78 Initial Vital Sign Measured Time BP MAP HR RR O2Sat ETCO2 Temp Pain GCS RTS 11:21 10/20/2024 112/73 86 120 19 97% 97.8 F 5 Time Seen: 11:26 10/20/2024. Arrived- By private vehicle. Historian- patient. HISTORY OF PRESENT ILLNESS Chief Complaint: COUGH, MUSCLE ACHES and FLU. (2-3 days). (cough, myalgias, headache. COVID exposure. Denies any nausea, vomiting, abdominal pain, urinary symptoms.). REVIEW OF SYSTEMS NEUROLOGICAL: The patient has had a headache. GI: No nausea, vomiting or diarrhea. PAST HISTORY Stewart's Disease 1 of 17 Narrative Diabetes Mellitus Type 2 Grave's Disease Migraine Headache Seizure Surgeries: Appendectomy Gallbladder Surgery Total abdominal hysterectomy Medications: Aimovig Autoinjector 70 mg/mL subcutaneous auto-injector: 1 once a month. atorvastatin 10 mg tablet: 1 tablet once a day. clomipramine 50 mg capsule: 4 capsule twice a day. (200 mg total) dexamethasone 0.5 mg tablet: 1 once a day. eletriptan 40 mg tablet: 1 tablet as directed. (onset and every 2 hours) fludrocortisone 0.1 mg tablet: 1 once a day. Jardiance 10 mg tablet: 1 once a day. levothyroxine 125 mcg tablet: 1 once a day. lurasidone 40 mg tablet: 1 once a day. topiramate 25 mg tablet: 1 once a day. Xanax 0.5 mg tablet: 1 once a day. Allergies: azithromycin Excedrin Migraine latex Neosporin (fmx-yvr-wviio) Home Medications/Allergy Information Source: patient - Brianna RodríguezAngel Luis, 10/20/2024 11:20 EST SOCIAL HISTORY No alcohol use or drug use. 2 of 17 Narrative ADDITIONAL NOTES The nursing notes have been reviewed. PHYSICAL EXAM Vital Signs: Have been reviewed. Appearance: Alert. No acute distress. Eyes: Pupils equal, round and reactive to light. Eyes normal inspection. ENT: Ears normal. Nose normal. Pharynx normal. Uvula midline. Neck: Normal inspection. Neck supple. CVS: Tachycardia. Heart sounds normal. Pulses normal. Respiratory: No respiratory distress. Breath sounds normal. Abdomen: Soft and nontender. Skin: Skin warm and dry. Normal skin color. Extremities: No lower extremity edema. Neuro: No motor deficit. No sensory deficit. LABS, X-RAYS, AND EKG 12-LEAD EKG: EKG time: 11:19 10/20/2024. Tachycardia (124). Normal P waves. Normal QRS complex. Normal ST and T waves. The study has been interpreted contemporaneously by me. Interpretation time: 11:21 10/20/2024. Laboratory Tests: CBC + DIFF Final LENORA: 10/20/2024 11:53:00 EST MsgRcvd: 10/20/2024 12:37 EST Lab Test Result Reference Status Received Comments 10/20/2024 12:37 CBC-COMPLETE CBC + DIFF Final EST BLOOD COUNT 10/20/2024 12:37 WBC 7.2 x 10/UL 4.5 - 10.8 Final EST 3 of 17 Narrative 5.35 x 10/UL 10/20/2024 12:37 RBC 4.10 - 5.30 Final Above high normal EST 10/20/2024 12:37 HEMOGLOBIN 13.7 g/dl 12.0 - 16.0 Final EST 10/20/2024 12:37 HEMATOCRIT 40.0 % 34.0 - 46.0 Final EST 75 fl 10/20/2024 12:37 MCV 80 - 99 Final Below low normal EST 26 pg 10/20/2024 12:37 MCH 27 - 33 Final Below low normal EST 10/20/2024 12:37 MCHC 34 X10 3 32 - 36 Final EST 16.8 % 10/20/2024 12:37 RDW/CV 12.0 - 15.6 Final Above high normal EST 10/20/2024 12:37 PLATELET 424 x10/UL 150 - 450 Final EST 10/20/2024 12:37 AUTOMATED MPV 7.9 fl 6.6 - 10.5 Final EST DIFFERENTIAL 10/20/2024 12:37 NEUT % 59.0 % 46.0 - 76.0 Final EST 10/20/2024 12:37 LYMPH % 32.0 % 20.0 - 45.0 Final EST 10/20/2024 12:37 MONOS % 8.3 % 0.0 - 10.0 Final EST 10/20/2024 12:37 EO % 0.3 % 0.0 - 7.0 Final EST 10/20/2024 12:37 BASO % 0.4 % 0.0 - 2.0 Final EST 4 of 17 Narrative 10/20/2024 12:37 Lymph # 2.29 x10/UL 0.80 - 2.80 Final EST 10/20/2024 12:37 Neut # 4.22 x10/UL 1.50 - 7.10 Final EST 10/20/2024 12:37 Cannon # 0.59 x10/UL 0.20 - 1.00 Final EST 10/20/2024 12:37 EO # 0.02 x10/UL 0.00 - 0.50 Final EST 10/20/2024 12:37 Baso # 0.03 x10/UL 0.00 - 0.10 Final EST 10/20/2024 12:37 MANUAL DIFF N/A New Order EST 10/20/2024 12:37 MORPHOLOGY N/A New Order EST CMP with eGFR Final LENORA: 10/20/2024 11:53:00 EST MsgRcvd: 10/20/2024 12:57 EST Lab Test Result Reference Status Received Comments COMPREHENSIVE 10/20/2024 CMP with eGFR Final METABOLIC 12:57 EST PANEL 10/20/2024 SODIUM 139 mmol/l 136 - 145 Final 12:57 EST 10/20/2024 POTASSIUM 4.0 mmol/L 3.5 - 5.1 Final 12:57 EST 10/20/2024 CHLORIDE 103 mmol/L 98 - 107 Final 12:57 EST 5 of 17 Narrative 10/20/2024 CO2 25.3 mmol/L 21.0 - 32.0 Final 12:57 EST 10/20/2024 GLUCOSE 90 mg/dl 74 - 106 Final 12:57 EST 10/20/2024 BUN 12 mg/dl 7 - 18 Final 12:57 EST 1.08 mg/dl 10/20/2024 CREATININE Above high 0.55 - 1.02 Final 12:57 EST normal 10/20/2024 AST/SGOT 35 U/L 13 - 39 Final 12:57 EST 131 U/L 10/20/2024 ALK PHOS Above high 46 - 116 Final 12:57 EST normal 10/20/2024 CALCIUM 9.5 mg/dl 8.5 - 10.1 Final 12:57 EST 8.3 g/dl TOTAL 10/20/2024 Above high 6.4 - 8.2 Final PROTEIN 12:57 EST normal 10/20/2024 ALBUMIN 3.9 g/dL 3.4 - 5.0 Final 12:57 EST 4.4 G/DL 10/20/2024 GLOBULIN Above high 1.5 - 3.8 Final 12:57 EST normal 10/20/2024 A/G RATIO 0.9 0.9 - 1.6 Final 12:57 EST 1.4 mg/dl 10/20/2024 TOTAL BILI Above high 0.2 - 1.0 Final 12:57 EST normal 6 of 17 Narrative 10/20/2024 B/C RATIO 11 ratio 0 - 30 Final 12:57 EST 10/20/2024 ALT/SGPT 54 U/L 16 - 63 Final 12:57 EST 10/20/2024 ANION GAP 15 mmol/L 10 - 20 Final 12:57 EST 10/20/2024 AGE 29 years Final 12:57 EST 59 ML/MINUTE 10/20/2024 eGFR 60 - 999 Final Below low normal 12:57 EST 7 of 17 Narrative ACCORDING TO THE NATIONAL KIDNEY DISEASE EDUCATION PROGRAM(NKDE), A NORMAL eGFR IS A VALUE GREATER THAN OR EQUAL TO 60 ML/MIN/1.73 SQ METERS. 10/20/2024 CHRONIC KIDNEY eGFR(AA) >60 ML/MINUTE 60 - 999 Final 12:57 EST DISEASE: <60mL/MIN/1.73 SQ METERS KIDNEY FAILURE: <15mL/MIN/1.73 SQ METERS THIS TEST SHOULD ONLY BE USED FOR PATIENTS 18 YEARS OF AGE AND OLDER. CORONAVIRUS (SARS) ANTIGEN TEST Final LENORA: 10/20/2024 11:53:00 EST MsgRcvd: 10/20/2024 13:04 EST Lab Test Result Reference Status Received Comments NORMAL: 10/20/2024 SARS ANTIGEN NEGATIVE Final NEGATIVE 13:04 EST INTERNAL 10/20/2024 PASS Final CONTROL 13:04 EST 8 of 17 Narrative EXTERNAL QC 10/20/2024 YES Final DONE? 13:04 EST 9 of 17 Narrative SARS-CoV-2 THIS TEST IS BEING USED UNDER THE FDA EUA PROCEDURE. THIS ASSAY HAS BEEN VALIDATED AT [facility] FOR USE WITH NASAL AND NASOPHARYNGEAL SWAB SPECIMENS. INTERPRETIVE DATA TEST RESULTS SHOULD ALWAYS BE CONSIDERED IN THE CONTEXT OF CLINICAL OBSERVATIONS AND EPIDEMIOLOGICAL DATA IN MAKING FINAL DIAGNOSIS AND PATIENT MANAGEMENT DECISIONS. PATIENT MANAGEMENT SHOULD FOLLOW CURRENT CDC GUIDELINES. THE ANATOLIY SARS ANTIGEN LESTER DOES NOT Narrative INFLUENZA VIRUS RAPID A/B Final LENORA: 10/20/2024 11:53:00 EST MsgRcvd: 10/20/2024 13:05 EST Lab Test Result Reference Status Received Comments NEGATIVE 10/20/2024 INFLUENZA A Final [NEGATIVE 13:05 EST NEGATIVE 10/20/2024 INFLUENZA B Final [NEGATIVE 13:05 EST INTERNAL 10/20/2024 PASS Final NEG QC 13:05 EST INTERNAL 10/20/2024 PASS Final POS QC 13:05 EST EXTERNAL QC 10/20/2024 YES Final DONE? 13:05 EST 11 of 17 Narrative A NEGATIVE TEST RESULT DOES NOT EXCLUDE INFECTION WITH INFLUENZA A OR B. THEREFORE, THE RESULTS OBTAINED FROM THIS FLU TEST SHOULD BE USED IN CONJUCTION WITH CLINICAL FINDINGS TO MAKE AN ACCURATE DIAGNOSIS. A POSITIVE RESULT DOES NOT RULE OUT CO-INFECTIONS WITH OTHER PATHOGENS OR IDENTIFY ANY SPECIFIC INFLUENZA A VIRUS 10/20/2024 SEND TO IC? NO Final SUBTYPE.CO-INFECTION 13:05 EST WITH INFLUENZA A AND B IS RARE. IT IS RECOMMENDED THAT DUAL POSITIVE RESULTS BE CONFIRMED BY VIRAL CULTURE OR AN FDA-CLEARED INFLUENZA A AND B MOLECULAR ASSAY. INDIVIDUALS WHO HAVE RECEIVED NASALLY ADMINISTERED INFLUENZA A VACCINE MAY TEST Narrative RESULT 10/20/2024 NO Final CRITICAL? 13:05 EST TROPONIN Final LENORA: 10/20/2024 11:53:00 EST MsgRcvd: 10/20/2024 12:58 EST Lab Test Result Reference Status Received Comments 10/20/2024 12:58 HS TROPONIN <4.0 pg/mL 0.0 - 51.4 Final EST URINALYSIS Final LENORA: 10/20/2024 13:24:00 EST MsgRcvd: 10/20/2024 14:35 EST Lab Test Result Reference Status Received Comments 10/20/2024 14:35 URINALYSIS Final URINALYSIS EST 10/20/2024 14:35 Specimen Type R New Order EST NORMAL: 10/20/2024 14:35 Color keven Final YELLOW EST NORMAL: 10/20/2024 14:35 Clarity clear Final CLEAR EST NORMAL: 10/20/2024 14:35 ph 5 Final 5.0-8.0 EST 30 NORMAL: 10/20/2024 14:35 Protein Final Abnormal NEGATIVE EST 250 NORMAL: 10/20/2024 14:35 Glucose Final Abnormal NORMAL EST 13 Narrative 50 NORMAL: 10/20/2024 14:35 Ketone Final Abnormal NEGATIVE EST 1 NORMAL: 10/20/2024 14:35 Bilirubin Final Abnormal NEGATIVE EST 25 NORMAL: 10/20/2024 14:35 Blood Final Abnormal NEGATIVE EST NORMAL: 10/20/2024 14:35 Urobilinog NORM Final NORMAL EST NORMAL: 10/20/2024 14:35 Sp [place] 1.025 Final 1.010-1.030 EST NORMAL: 10/20/2024 14:35 Nitrite NEG Final NEGATIVE EST NORMAL: 10/20/2024 14:35 Leukocytes NEG Final NEGATIVE EST 10/20/2024 14:35 Microscopic SEE BELOW Final MICROSCOPIC EST 10/20/2024 14:35 Wbc NONE 0-5/hpf Final EST 10/20/2024 14:35 Rbc 0-5 0-3/hpf Final EST 10/20/2024 14:35 Casts NONE Final EST 10/20/2024 14:35 Crystals NONE Final EST 10/20/2024 14:35 Amorphous NONE Final EST 10/20/2024 14:35 Bacteria NONE Final EST 14 of 17 Narrative 10/20/2024 14:35 Epi Cells OCC Final EST 10/20/2024 14:35 Mucous NONE Final EST 10/20/2024 14:35 Yeast NONE Final EST Diagnostic Study Tests: CHEST 1 VIEW Final EXAM Date: 10/20/2024 11:38:00 EST MsgRcvd: 10/20/2024 20:08 EST [place] [id number] Patient: JAQUELIN SZYMANSKI Phone#: : 1995 Age: 29 Gender: F Pt. Type: ER Account: [id number] Location: 2 Ordering: BRYCE JUSTIN Exam Date: 10/20/2024/11:32 Family Phys: KEVIN BRADLEY Charge Code: [id number] Physician: [place] Order #: [id number] Dose#: PROCEDURE: X-RAY CHEST 1 VIEW COMPARISON: [facility], XR, CHEST 1 VIEW, 05/10/2024, 20:31. INDICATIONS: Cough. FINDINGS: LUNGS: Normal. No significant pulmonary parenchymal abnormalities. VASCULATURE: Normal. Unremarkable pulmonary vasculature. CARDIAC: Normal. No cardiac silhouette abnormality or cardiomegaly. MEDIASTINUM: Normal. No visible mass or adenopathy. PLEURA: Normal. No effusion or pleural thickening. BONES: Normal. No fracture or visible bony lesion. OTHER: Negative. CONCLUSION: No acute disease. 15 of 17 Narrative Dictated by: Gretchen Espinoza MD on 10/20/2024 at 20:03 Approved by: Gretchen Espinoza MD on 10/20/2024 at 20:04 PROGRESS AND PROCEDURES Differential Diagnosis: Other possible considerations: URI, pneumonia, bronchitis, volume depletion. MEDICAL DECISION MAKING: (Patient appears well nontoxic. Lab work unremarkable. Patient treated with fluid resuscitation, Toradol, Tylenol. Feeling improved. Viral swabs negative. Patient advised on continued supportive care and follow up with primary care. Stable time of discharge.). Disposition: Condition: good. Disposition Decision Time: 14:42 10/20/2024. Patient discharged. Discharged in good condition. CLINICAL IMPRESSION Viral syndrome DISCHARGE INSTRUCTIONS Prescription Medications: ketorolac 10 mg tablet: Take 1 tablet by mouth every eight hours as needed for pain for 5 days, dispense 15 tablet. Refills 0. Pharmacy: [id number] - [address] [place] [address]. ondansetron 4 mg disintegrating tablet: Take 1 tablet on tongue every eight hours for nausea/vomiting for 5 days, dispense 15 tablet. Refills 0. Pharmacy: [id number] - [address] [place] [address]. Follow-up: Follow up with your healthcare provider in two days. Call for an appointment. (Electronically signed by Bryce Justin D.O. 11/02/24 07:55:08 EST) Disposition History: 16 of Narrative Disposition Decision Time: 14:42 10/20/2024. Disposition changed to Discharge. -- 14:42 10/20/2024 Bryce Justin D.O. Disposition Decision Time: 14:42 10/20/2024. Disposition changed to Discharge to Home. Departure Time: 14:53 10/20/2024. -- 15:07 10/20/2024 Tila Torrez R.N. Generated by [facility] ED MED ADMINISTRATION DETAIL Observed: 1 12/21/2023 11:11 AM Status: F Source: [facility] Banquet Stewardess Medication Administration Record [address] [place] [address] [phone] 10/20/2024 Patient: JAQUELIN SZYMANSKI Sex: Female : 1995 Age: 29y MEASUREMENTS: Wt: 86.6 kg, Ht/Osmar: 65.0 in, BMI: 31.78 ALLERGIES: Excedrin Migraine, Neosporin (fxa-yaw-wazrx), azithromycin, latex Medication Ordered Medication Administration Date/Time IV NS 0.9 % 1000 12:10/20 IV NS 0.9 % 1000 mL started in bag#1 1000 mL at Started mL at 999 mL/hr 999 mL/hr via Site# 1. Allergies verified and confirmed 5 rights. Via 12:06 10/20/2024 (NOW x1) IV pump. IV patency established. IV site checked: no pain, redness, Tila Torrez R.N. or swelling. IV flushed thoroughly pre-medication administration. Stopped Information reviewed with patient including reason for taking this 13:29 10/20/2024 medication. - 12:06 Angel Luis Dinh R.N. Scanned 13:10/20 Medication Discontinued: bag #1 infused. Total amount infused: 1000 mL. IV patency established. IV site checked: no pain, redness, or swelling. IV flushed thoroughly post-medication administration. - 14:29 Tila Torrez R.N. KetorOLAC 12:10/20 KetorOLAC (Toradol) IVP 30 mg given via Site# 1. Given (Toradol) IVP 30 mg Allergies verified and confirmed 5 rights. IV patency established. IV 12:10/20/2024 (NOW x1) site checked: no pain, redness, or swelling. IV flushed thoroughly Tila Torrez R.N. pre-medication administration. IVP given by nurse. Information Scanned reviewed with patient including reason for taking this medication. - 12:06 Tila Torrez R.N. Acetaminophen 14:27 10/20 Acetaminophen (Tylenol) PO 975 mg given. Allergies Given (Tylenol) PO 975 verified and confirmed 5 rights. Information reviewed with patient 14:27 10/20/2024 mg (NOW x1) including reason for taking this medication. - 14:28 Tila Dinh R.N. RRicky Scanned 1 of 2 Banquet Stewardess 2 of 2 URINALYSIS Collected: 4 11:20 PM Status: F Source: [facility] TYPE CODE TESTS RESULT OUT OF RANGE REFERENCE UNITS LAB URINALYSIS(KARMA NC) URINALYSIS Result Comment: URINALYSIS LAB Specimen Type(LOINC) Specimen Type R LAB Color(LOINC) Color yellow NORMAL: YELLOW LAB Clarity(LOINC) Clarity clear PEARL L: CLEAR LAB ph(LOINC) ph 5 NORMAL: 5.0-8.0 LAB Protein(LOINC) Protein NEG PEARL L: NEGATIVE LAB Glucose(LOINC) Glucose 1000 Abnormal PEARL L: NORMAL LAB Ketone(LOINC) Ketone NEG NORMAL : NEGATIVE LAB Bilirubin(LOIN C) Bilirubin NEG NORMAL: NEGATIVE LAB Blood(LOINC) Blood 25 Abnormal NORMAL: NEGATIVE LAB Urobilinog(KARMA NC) Urobilinog NORM NORMAL: NORMAL LAB Sp [place](LOINC) Sp [place] 1.020 NORMAL: 1.010-1.030 LAB Nitrite(LOINC) Nitrite NEG PEARL L: NEGATIVE LAB Leukocytes(KARMA NC) Leukocytes NEG NORMAL: NEGATIVE LAB Microscopic(LO INC) Microscopic SEE BELOW Result Comment: MICROSCOPIC LAB Wbc(LOINC) Wbc NONE 0-5/hpf LAB Rbc(LOINC) Rbc 0-5 0-3/hpf LAB Casts(LOINC) Casts NONE LAB Crystals(LOINC ) Crystals NONE LAB Amorphous(LOIN C) Amorphous NONE LAB Bacteria(LOINC ) Bacteria 1+ LAB Epi Cells(LOINC) Epi Cells FEW LAB Mucous(LOINC) Mucous 2+ LAB Yeast(LOINC) Yeast NONE Performed By: #### [id number] ## ## [facility],[address] [place] [address] URINE Collected: 10/07/2024 11:20 PM Statu s: F Source: [facility] TYPE CODE TESTS RESULT OUT OF RANGE REFERENCE UNITS LAB UR(LOINC) UR NEGATIVE NEGATIVE LAB INTERNAL QC(LOINC) INTERNAL QC PASS LAB EXTERNAL QC DONE?(LOINC) EXTERNAL QC DONE? YES Performed By: #### [id number] ## ## [place] [address] CT KUB (KIDNEY STONE PROTOCOL) Observed: 10/07/2024 9:06 PM Status: F Source: [place] [id number] Patient: JAQUELIN SZYMANSKI Phone#: : 1995 Age: 29 Gender: F Pt. Type: ER Account: [id number] Location: 052 Ordering: DR. STEPHANIE RODAS Exam Date: 10/07/2024/20:39 Family Phys: KEVIN BRADLEY Charge Code: [id number] Physician: [place] Order #: [id number] Dose#: 13.2 mGy PROCEDURE: CT ABDOMEN AND PELVIS WITHOUT CONTRAST COMPARISON: [facility], CT, ABDOMEN/PELVIS W CON, 06/10/2024, 15:23. [facility], CT, KUB W/O CON, 11/02/2023, 15:17. INDICATIONS: Kidney stones, flank pain. TECHNIQUE: After obtaining the patient's consent, CT images of the abdomen and pelvis were created without non-ionic intravenous contrast material. All CT scans at this facility use dose modulation, iterative reconstruction, and/or weight based dosing when appropriate to reduce radiation dose to as low as reasonably achievable. IV CONTRAST: No IV contrast used,ml TOTAL DOSE: 13.2 CTDIvol(mGy) FINDINGS: KIDNEYS: No right nephrolithiasis or hydronephrosis. ADRENALS: Normal. No mass or enlargement. URINARY BLADDER: Normal. No visible focal wall thickening, lesion, or calculus. LIVER: Liver is diffusely decreased in attenuation, consistent with diffuse fatty infiltration of the liver. BILIARY: Gallbladder is absent. PANCREAS: Unremarkable in contour SPLEEN: Calcified granulomas in the spleen. AORTA/VASCULAR: No aortic aneurysm. There are scattered atherosclerotic calcifications of the aorta. RETROPERITONEUM: Limited evaluation for adenopathy in the absence of contrast BOWEL/MESENTERY: No bowel obstruction or dilatation. Moderate to large stool burden. Appendix is not visualized. Surgical clips are present at the cecum, likely secondary to appendectomy. ABDOMINAL WALL: Normal. No mass or hernia. PELVIC NODES: Normal. No adenopathy. PELVIC ORGANS: Uterus is absent. Low-attenuation lesion in the left ovary measuring 3.3 x 3.6 x 3.1 cm, incompletely characterized without contrast. Continued Report - Page 2 of 2 Patient: JAQUELIN SZYMANSKI Phone#: : 1995 Age: 29 Gender: F Pt. Type: ER Account: [id number] Location: 052 Ordering: DR. STEPHANIE RODAS Exam Date: 10/07/2024/20:39 Family Phys: KEVIN BRADLEY Charge Code: [id number] Physician: [place] Order #: [id number] Dose#: 13.2 mGy BONES: Normal. No bony lesion or fracture. LUNG BASES: Calcified granuloma in the left lower lobe. Scarring versus atelectasis in the right middle lobe. OTHER: Negative. CONCLUSION: 1. No nephrolithiasis or hydronephrosis. 2. Constipation 3. Fatty infiltration of the liver Dictated by: Hailee Alicea MD on 10/07/2024 at 20:52 Approved by: Hailee Alicea MD on 10/07/2024 at 21:02 LIPASE Collected: 4 7:40 PM Status: F Source: [facility] TYPE CODE TESTS RESULT OUT OF RANGE REFERENCE UNITS LAB LIPASE(LOINC) LIPASE 21.0 15.0 - 78.0 U/L Result Comment: *PLEASE NOTE THAT RANGES FOR LIPASE HAVE CHANGED OF 10/20/23 DUE TO AN ASSAY UPDATE BY THE PRODUCTION CONTROLLER.THE NEW ASSAY RANGE IS 6-250 U/L, WITH A REFERENCE RANGE OF 16-77 U/L. Performed By: #### [id number] ## ## [facility],[address] [place] [address] CBC + DIFF Collected: 4 7:40 PM Status: F Source: [facility] TYPE CODE TESTS RESULT OUT OF RANGE REFERENCE UNITS LAB CBC + DIFF(LOINC) CBC + DIFF Result Comment: CBC-COMPLETE BLOOD COUNT LAB WBC(LOINC) WBC 8.7 4.5 - 10.8 x 10EE3/UL LAB RBC(LOINC) RBC 4.86 4.10 - 5.30 x 10EE6/UL LAB HEMOGLOBIN(KARMA NC) HEMOGLOBIN 12.2 12.0 - 16.0 g/dl LAB HEMATOCRIT(KARMA NC) HEMATOCRIT 36.7 34.0 - 46.0 % LAB MCV(LOINC) MCV 76 Low 80 - 99 fl LAB MCH(LOINC) MCH 25 Low 27 - 33 pg LAB MCHC(LOINC) MCHC 33 32 - 36 X10 3 LAB RDW/CV(LOINC) RDW/CV 17.0 High 12.0 - 15.6 % LAB PLATELET(LOINC ) PLATELET 336 150 - 450 x10EE3/UL LAB MPV(LOINC) MPV 7.8 6.6 - 10.5 fl Result Comment: AUTOMATED DI FFERENTIAL LAB NEUT %(LOINC) NEUT % 58.1 46.0 - 76.0 % LAB LYMPH %(LOINC) LYMPH % 32.6 20.0 - 45.0 % LAB MONOS %(LOINC) MONOS % 8.7 0.0 - 10.0 % LAB EO %(LOINC) EO % 0.4 0.0 - 7.0 % LAB BASO %(LOINC) BASO % 0.3 0.0 - 2.0 % LAB Lymph #(LOINC) Lymph # 2.83 High 0.80 - 2.80 x10EE 3/UL LAB Neut #(LOINC) Neut # 5.04 1.50 - 7.10 x10EE3 /UL LAB Cannon #(LOINC) Cannon # 0.75 0.20 - 1.00 x10EE3 /UL LAB EO #(LOINC) EO # 0.03 0.00 - 0.50 x10EE3/U L LAB Baso #(INC) Baso # 0.02 0.00 - 0.10 x10EE3 /UL LAB MANUAL DIFF([facility]) MANUAL DIFF N/A LAB MORPHOLOGY([facility]MA AK) MORPHOLOGY N/A Performed By: #### [id number] ## ## [facility],[address] [place] [address] CMP WITH EGFR Collected: 4 7:40 PM Status: F Source: [facility] TYPE CODE TESTS RESULT OUT OF RANGE REFERENCE UNITS LAB CMP with eGFR(INC) CMP with eGFR Result Comment: COMPREHENSIV E METABOLIC PANEL LAB SODIUM(LOINC) SODIUM 137 136 - 145 mmol/l LAB POTASSIUM(LOIN C) POTASSIUM 4.2 3.5 - 5.1 mmol/L LAB CHLORIDE(LOINC ) CHLORIDE 102 98 - 107 mmol/L LAB CO2(LOINC) CO2 26.7 21.0 - 32.0 mmol/L LAB GLUCOSE(LOINC) GLUCOSE 88 74 - 106 mg/dl LAB BUN(LOINC) BUN 7 7 - 18 mg/dl LAB CREATININE(KARMA NC) CREATININE 0.97 0.55 - 1.02 mg/dl LAB AST/SGOT(LOINC ) AST/SGOT 20 13 - 39 U/L LAB ALK PHOS(LOINC) ALK PHOS 116 46 - 116 U/L LAB CALCIUM(LOINC) CALCIUM 9.3 8.5 - 10.1 mg/dl LAB TOTAL PROTEIN(LOINC) TOTAL PROTEIN 7.9 6.4 - 8.2 g/dl LAB ALBUMIN(LOINC) ALBUMIN 3.3 Low 3.4 - 5.0 g/dL LAB GLOBULIN(LOINC ) GLOBULIN 4.6 High 1.5 - 3.8 G/DL LAB A/G RATIO(LOINC) A/G RATIO 0.7 Low 0.9 - 1.6 LAB TOTAL BILI(LOINC) TOTAL BILI 0.6 0.2 - 1.0 mg/dl LAB B/C RATIO(LOINC) B/C RATIO 7 0 - 30 ratio LAB ALT/SGPT(LOINC ) ALT/SGPT 30 16 - 63 U/L LAB ANION GAP(LOINC) ANION GAP 13 10 - 20 mmol/L LAB AGE(LOINC) AGE 29 years LAB eGFR(LOINC) eGFR >60 60 - 999 ML/MINUT E LAB eGFR(AA)(LOINC ) eGFR(AA) >60 60 - 999 ML/MINUT E Result Comment: ACCORDING TO THE NATIONAL KIDNEY DISEASE EDUCATION PROGRAM(NKDE), A NORMAL eGFR IS A VALUE GREATER THAN OR EQUAL TO 60 ML/MIN/1.73 SQ METERS. CHRONIC KIDNEY DISEASE: <60mL/MIN/1.73 SQ METERS KIDNEY FAILURE: <15mL/MIN/1.73 SQ METERS THIS TEST SHOULD ONLY BE USED FOR PATIENTS 18 YEARS OF AGE AND OLDER. Performed By: #### [id number] ## ## [facility],[address] [place] [address] ED VISIT SUMMARY Observed: 10/07/2024 6:23 PM Status: F Source: [facility] Visit [place] [address] [id number] 10/07/2024 Patient: JAQUELIN SZYMANSKI Sex: Female : 1995 Age: 29y 10/08/2024 02:01 AM EST ED Arrival:18:23 10/07/2024 EST Status:not Recent Travel:no Language:eng Adv Directive: Isolation Status: Ethnicity:N Fall Risk:no risk Infectious Disease Exposure:no Measurements:5'5 / 165.1 Self-Harm Status:risk Sepsis Screen:negative cm 191.0 lb / 86.6 kg Chief Complaint:ABDOMINAL PAIN, (hurts with urination; urinating frequently), and (right sided pain ) ALLERGIES azithromycin Excedrin Migraine latex Neosporin (zuo-cpb-boiiz) HOME MEDICATIONS Aimovig Autoinjector 70 mg/mL subcutaneous auto-injector: 1 once a month. atorvastatin 10 mg tablet: 1 tablet once a day. 1 4 Visit Overview clomipramine 50 mg capsule: 2 capsule twice a day. dexamethasone 0.5 mg tablet: 1 once a day. eletriptan 40 mg tablet: 1 tablet as directed. fludrocortisone 0.1 mg tablet: 1 once a day. Jardiance 10 mg tablet: 1 once a day. levothyroxine 125 mcg tablet: 1 once a day. lorazepam 1 mg tablet: Stopped 10/07/2024. lurasidone 40 mg tablet: 1 once a day. topiramate 25 mg tablet: 1 once a day. Xanax 0.5 mg tablet: 1 once a day. 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 Immunizations: up-to-date Migraine Headache No menstrual periods Seizure PAST SURGICAL HISTORY Appendectomy Gallbladder Surgery Total abdominal hysterectomy SOCIAL HISTORY Smoking status: No Alcohol use: No Drug use: No ED COURSE MEDICATIONS GIVEN IN EMERGENCY DEPARTMENT 19:58 10/07/24 IV NS 0.9 % 1000 mL 999 mL/hr 2 4 Visit Overview 20:05 10/07/24 Zofran IVP 4 mg 20:08 10/07/24 KetorOLAC (Toradol) IVP 15 mg 21:00 10/07/24 HYDROmorphone (Dilaudid) IVP 0.5 mg 22:20 10/07/24 Zofran IVP 4 mg 22:24 10/07/24 HYDROmorphone (Dilaudid) IVP 0.5 mg IV SITE INFORMATION INTAKE OUTPUT REASSESMENT (most recent) 19:35 10/07/24. Ambulatory to room. GENERAL / NEURO / PSYCH: Alert. Oriented X 4. HEENT: Mucous membranes are pink. RESPIRATORY: Respirations not labored. Breath sounds within normal limits. GI / : Abdomen soft and nontender. Bowel sounds within normal limits. SKIN: Skin is warm and dry. VITAL SIGNS First Vitals Last Vitals Temp 18:28 10/07/24 98.0 F Temp 22:28 10/07/24 BP 18:28 10/07/24 108/69 BP 22:28 10/07/24 101/58 HR 18:28 10/07/24 108 HR 22:28 10/07/24 89 RR 18:28 10/07/24 17 RR 22:28 10/07/24 16 O2 Sat 18:28 10/07/24 97% O2 Sat 22:28 10/07/24 97% RA Pain 18:28 10/07/24 8 Pain 22:28 10/07/24 8 ETCO2 18:28 10/07/24 ETCO2 22:28 10/07/24 GCS 18:28 10/07/24 GCS 22:28 10/07/24 RTS 18:28 10/07/24 RTS 22:28 10/07/24 PROCEDURES NURSING INTERVENTIONS LABS / STUDIES LABS / STUDIES ORDERED CBC w Diff CMP 3 of [address] KUB (Kidney stone) Lipase Urinalysis Urine - HCG CLINICAL IMPRESSION RIGHT UPPER QUADRANT ABDOMINAL PAIN 4 of 4 ED VITALS FLOW SHEET Observed: 6:23 PM Status: F Source: [facility] Vitals Vital Sign Flow Sheet [address] [address] [id number] 10/07/2024 Patient: JAQUELIN SZYMANSKI Sex: Female : 1995 Age: 29y Measurements Wt: 86.6 kg, Ht/Osmar: 65.0 in, BMI: 31.78 Measured Time BP MAP HR RR O2Sat ETCO2 Temp Pain GCS RTS 22:28 10/07/2024 101/58 72 89 16 97% RA 8 18:28 10/07/2024 108/69 82 108 17 97% 98.0 F 8 1 of 1 ED ORDER SHEET (CPOE ONLY) Observed: 6:23 PM Status: F Source: [facility] Order Sheet Order Sheet [address] [address] [id number] 10/07/2024 Patient: JAQUELIN SZYMANSKI Sex: Female : 1995 Age: 29y MEASUREMENTS: Wt: 86.6 kg, Ht/Osmar: 65.0 in, BMI: 31.78 ALLERGIES: Excedrin Migraine, Neosporin ([id number]-lcz-bmyyx), azithromycin, latex MEDICATION/IV/DRIP/FLUID ORDERS Order Description Priority Entered Acknowledged Completed Zofran IVP4 mg (NOW x1) 19:33 10/07/2024 19:35 20:05 Stephanie Rodas M.D. 10/07/2024 10/07/2024 Ingrid Gagnon, Jani.N. R.N. IV NS 0.9 %1000 mL at 999 19:33 10/07/2024 19:35 19:59 mL/hr (NOW x1) Stephanie Rodas M.D. 10/07/2024 10/07/2024 Ingrid Gagnon, Jani.N. R.N. KetorOLAC (Toradol) IVP15 mg 19:33 10/07/2024 19:35 20:08 (NOW x1) Stephanie Rodas M.D. 10/07/2024 10/07/2024 Ingrid Gagnon, AngeliqueN. R.N. Reason for ordering with alerts: Benefits outweigh risks --19:33 10/07/2024 Stephanie Rodas M.D. HYDROmorphone (Dilaudid) 20:53 10/07/2024 20:55 21:02 IVP0.5 mg (NOW x1, HIGH Stephanie Rodas M.D. 10/07/2024 10/07/2024 ALERT MEDICATION) Ingrid Gagnon, 1 of 3 Order Sheet R.N. R.N. Reason for ordering with alerts: Benefits outweigh risks --20:53 10/07/2024 Stephanie Rodas M.D. HYDROmorphone (Dilaudid) 22:11 10/07/2024 22:14 22:24 IVP0.5 mg (NOW x1, HIGH Stephanie Rodas M.D. 10/07/2024 10/07/2024 ALERT MEDICATION) Ingrid Gagnon R.NKaye RKayeNKaye Reason for ordering with alerts: Benefits outweigh risks --22:11 10/07/2024 Stephanie Rodas M.D. Zofran IVP4 mg (NOW x1) 22:11 10/07/2024 22:14 22:24 Stephanie Rodas M.D. 10/07/2024 10/07/2024 Ingrid Aguilar, Ingrid Aguilar R.N. R.NKaye Reason for ordering with alerts: Benefits outweigh risks --22:11 10/07/2024 Stephanie Rodas M.D. LAB ORDERS Order Description Priority Entered Acknowledged Collected Completed CBC w Diff Stat Stat 18:35 10/07/2024 18:49 10/07/2024 Sosa Stout D.O. R.Marlee. CMP Stat Stat 18:35 10/07/2024 18:49 10/07/2024 Sosa Stout D.O. RCarmel. Lipase Stat Stat 18:35 10/07/2024 18:49 10/07/2024 Sosa Stout D.O. R.NKaye Urinalysis Stat Stat 18:35 10/07/2024 18:49 10/07/2024 Sosa Stout D.O. R.NKaye 2 of 3 Order Sheet Urine - HCG Stat 18:35 10/07/2024 18:49 10/07/2024 Stat Sosa Stout D.O. R.NKaye DIAGNOSTIC STUDY ORDERS Order Description Priority Entered Acknowledged Completed CT ABD/PEL wo Cont Stat Stat 19:32 10/07/2024 Cancelled: Other Stephanie Rodas M.D. 20:01 EST Stephanie Rodas M.D. Order Comments: 19:32 10/07/2024: (right sided flank pain. hx of kidney stones) Stephanie Rodas M.D. Reason for Study: Abdominal Pain CT KUB (Kidney stone) Stat Stat 20:01 10/07/2024 20:12 Stephanie Rodas M.D. 10/07/2024 Ingrid Aguilar R.N. Reason for Study: Kidney Stones,Flank Pain STAFF ORDERS Order Description Priority Entered Acknowledged Collected Completed IV Saline Lock 18:35 10/07/2024 18:49 10/07/2024 Sosa Stout D.O. R.N. [Electronically signed by Stephanie Rodas M.D. (10/08/2024 02:01 EST)] 3 of 3 ED MED ADMINISTRATION DETAIL Observed: 1 12/08/2023 6:23 PM Status: F Source: [facility] Banquet Stewardess Medication Administration Record [facility] [address] [facility] [place] [address] [id number] 10/07/2024 Patient: JAQUELIN SZYMANSKI Sex: Female : 1995 Age: 29y MEASUREMENTS: Wt: 86.6 kg, Ht/Osmar: 65.0 in, BMI: 31.78 ALLERGIES: Excedrin Migraine, Neosporin ([id number]), azithromycin, latex Medication Ordered Medication Administration Date/Time Zofran IVP 4 mg 20:05 10/07 Zofran IVP 4 mg given via Site# 1. Allergies verified Given (NOW x1) and confirmed 5 rights. IV patency established. IV site checked: no 20:05 10/07/2024 pain, redness, or swelling. IV flushed thoroughly pre-medication Ingrid Aguilar R.N. administration. IVP given by nurse. Information reviewed with Scanned patient. - 20:05 Ingrid Aguilar R.N. IV NS 0.9 % 1000 19:58 10/07 IV NS 0.9 % 1000 mL started in bag#1 1000 mL at Started mL at 999 mL/hr 999 mL/hr via Site# 2. Allergies verified and confirmed 5 rights. Via 19:58 10/07/2024 (NOW x1) IV pump. IV patency established. IV site checked: no pain, redness, Ingrid Aguilar R.N. or swelling. IV flushed thoroughly pre-medication administration. Stopped Information reviewed with patient. - 19:59 Ingrid Aguilar R.N. 20:03 10/07/2024 Ingrid Aguilar R.N. 20:03 10/07 Medication Discontinued: bag #1 infused. Total Scanned amount infused: 1000 mL. IV patency established. IV site checked: no pain, redness, or swelling. IV flushed thoroughly post-medication administration. - 00:03 Ingrid Aguilar R.N. 1 of 3 Banquet Stewardess Medication Ordered Medication Administration Date/Time KetorOLAC 20:08 10/07 KetorOLAC (Toradol) IVP 15 mg given via Site# 1. Given (Toradol) IVP 15 mg Allergies verified and confirmed 5 rights. IV patency established. IV 20:08 10/07/2024 (NOW x1) site checked: no pain, redness, or swelling. IV flushed thoroughly Ingrid Aguilar R.N. pre-medication administration. IVP given by nurse. Information Scanned reviewed with patient including reason for taking this medication. Medication Wastage: 15 mg wasted. - 20:08 Ingrid Aguilar R.N. 21:05 10/07 Medication Response: No adverse reaction. Pain is worsening. - 21:06 Ingrid Aguilar R.N. HYDROmorphone 21:00 10/07 HYDROmorphone (Dilaudid) IVP 0.5 mg given via Given (Dilaudid) IVP 0.5 Site# 1. Allergies verified and confirmed 5 rights. IV patency 21:00 10/07/2024 mg (NOW x1, HIGH established. IV site checked: no pain, redness, or swelling. IV Ingrid Aguilar R.N. ALERT flushed thoroughly pre-medication administration. IVP given by Scanned MEDICATION) nurse. Information reviewed with patient including reason for taking this medication. Medication Wastage: 0.5 mg wasted. - 21:02 Ingrid Aguilar R.N. 21:10/07 Medication Response: No adverse reaction. Pain is improving. Symptoms have improved. The patient feels better. - 21:06 Ingrid Aguilar R.N. HYDROmorphone 22:24 10/07 HYDROmorphone (Dilaudid) IVP 0.5 mg given via Given (Dilaudid) IVP 0.5 Site# 1. Allergies verified and confirmed 5 rights. IV patency 22:24 10/07/2024 mg (NOW x1, HIGH established. IV site checked: no pain, redness, or swelling. IV Ingrid Aguilar R.N. ALERT flushed thoroughly pre-medication administration. IVP given by Scanned MEDICATION) nurse. Information reviewed with patient. Medication Wastage: 0.5 mg wasted. - 22:24 Ingrid Aguilar R.N. 22:38 10/07 Medication Response: No adverse reaction. Pain is improving. Symptoms have improved. The patient feels better. - 22:38 Ingrid Aguilar R.N. 2 of 3 Banquet Stewardess Medication Ordered Medication Administration Date/Time Zofran IVP 4 mg 22:20 10/07 Zofran IVP 4 mg given via Site# 1. Confirmed 5 rights. Given (NOW x1) IV patency established. IV site checked: no pain, redness, or 22:20 10/07/2024 swelling. IV flushed thoroughly pre-medication administration. IVP Ingrid Aguilar R.N. given by nurse. Information reviewed with patient. - 22:24 Ingrid Aguilar R.N. 22:39 10/07 Medication Response: No adverse reaction. Pain is improving. Symptoms have improved. The patient feels better. - 22:39 Ingrid Aguilar R.N. 3 of 3 ED NURSES CLINICAL NOTE Observed: 2023 6:23 PM Status: F Source: [facility] Nurse Narrative Nurse Clinical Narrative [address] [address] [id number] 10/07/2024 Patient: JAQUELIN SZYMANSKI Sex: Female : 1995 Age: 29y Disposition: Discharge to Home Disposition Decision Time: 23:27 10/07/2024 Departure Time: 23:36 10/07/2024 TRIAGE Arrived by private vehicle. Historian: patient. Triage time: 18:25 10/07/2024. Acuity: LEVEL 3. Chief Complaint: ABDOMINAL PAIN and (right sided pain). This started yesterday. ( hurts with urination; urinating frequently). The patient has had nausea. SEPSIS SCREEN: NEGATIVE. SIRS criteria negative: heart rate greater than 90. No possible sources of infection. -- 18:31 10/07/24 TOMAS Rodríguez R.N. 18:28 10/07/24. BP: 108/69 MAP: 82. HR: 108. RR: 17. O2 saturation: 97% Temperature: 98 F. Pain level now 8/10. Describes the pain as sharp. Constant. -- 18:30 10/07/24 TOMAS Rodríguez R.N. Measurements: 18:28 10/07/24 Wt: 86.6 kg, Ht/Osmar: 65.0 in, BMI: 31.78 -- 18:28 10/07/24 TOMAS Rodríugez R.N. Medications: topiramate 25 mg tablet: 1 once a day. -- 18:41 10/07/24 TOMAS Rodríguez R.N. lurasidone 40 mg tablet: 1 once a day. -- 18:41 10/07/24 TOMAS Rodríguez R.N. Xanax 0.5 mg tablet: 1 once a day. -- 18:41 10/07/24 TOMAS Rodríguez R.N. lorazepam 1 mg tablet: Stopped 10/07/2024. -- 18:41 10/07/24 TOMAS Rodríguez R.N. 1 of 5 Nurse Narrative levothyroxine 125 mcg tablet: 1 once a day. -- 18:41 10/07/24 TOMAS Rodríguez R.N. Jardiance 10 mg tablet: 1 once a day. -- 18:41 10/07/24 TOMAS Rodríguez R.N. fludrocortisone 0.1 mg tablet: 1 once a day. -- 18:41 10/07/24 TOMAS Rodríguez R.N. eletriptan 40 mg tablet: 1 tablet as directed. -- 18:41 10/07/24 TOMAS Rodríguez R.N. dexamethasone 0.5 mg tablet: 1 once a day. -- 18:41 10/07/24 TOMAS Rodríguez R.N. clomipramine 50 mg capsule: 2 capsule twice a day. -- 18:41 10/07/24 TOMAS Rodríguez R.N. atorvastatin 10 mg tablet: 1 tablet once a day. -- 18:41 10/07/24 TOMAS Rodríguez R.N. Aimovig Autoinjector 70 mg/mL subcutaneous auto-injector: 1 once a month. -- 18:41 10/07/24 OTMAS Rodríguez R.N. Allergies: Excedrin Migraine -- 18:26 10/07/24 TOMAS Rodríguez R.N. Neosporin (bbu-tqa-rbmnm) -- 18:26 10/07/24 TOMAS Rodríguez R.N. latex -- 18:26 10/07/24 TOMAS Rodríguez R.N. azithromycin -- 18:26 10/07/24 TOMAS Rodríguez R.N. Home Medications/Allergy Information Source: patient -- 18:26 10/07/24 TOMAS Rodríguez R.N. 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 Migraine Headache -- 18:26 10/07/24 TOMAS Rodríguez R.N. Grave's Disease -- 18:26 10/07/24 TOMAS Rodríguez R.N. Diabetes Mellitus Type 2 -- 18:26 10/07/24 TOMAS Rodríguez R.N. Seizure -- 18:26 10/07/24 TOMAS Rodríguez R.N. ADDITIONAL SURGERIES: Gallbladder Surgery -- 18:27 10/07/24 TOMAS Rodríguez R.N. Appendectomy -- 18:27 10/07/24 TOMAS Rodríguez R.N. -- 18:27 10/07/24 TOMAS Rodríguez R.N. Total abdominal hysterectomy -- 18:27 10/07/24 TOMAS Rodríguez R.N. History 2 of 5 Nurse Narrative 18:25 10/07/24. PAST MEDICAL HX: Immunizations: up-to-date. No menstrual periods. Denies current . SOCIAL HX: Never smoker. No alcohol use or drug use. The patient has not traveled outside the [place] Infectious disease exposure: No infectious disease exposure. ABUSE ASSESSMENT: The patient answered yes to the question(s) Do you feel safe in your home? and no to the question(s) Are you afraid to go home?. Abuse denied. No suspicion of abuse. SELF HARM ASSESSMENT: Self harm assessment was performed. The patient answered no to the question(s) Have you recently felt down, depressed, or hopeless? and Do you have thoughts of harming or killing yourself?. FALL RISK ASSESSMENT: Fall risk assessment completed. No risk factors identified. -- 18:31 10/07/24 TOMAS Rodríguez R.N. Interventions 18:25 10/07/24. Advanced care plan (Full Code). -- 18:31 10/07/24 TOMAS Rodríguez R.N. PHYSICAL ASSESSMENT 18:28 10/07/24. BP: 108/69 MAP: 82. HR: 108. RR: 17. O2 saturation: 97% Temperature: 98 F. Pain level now 8/10. Describes the pain as sharp. Constant. -- 19:49 10/07/24 TOMAS Aguilar R.N. 19:35 10/07/24. Ambulatory to room. GENERAL / NEURO / PSYCH: Alert. Oriented X 4. HEENT: Mucous membranes are pink. RESPIRATORY: Respirations not labored. Breath sounds within normal limits. GI / : Abdomen soft and nontender. Bowel sounds within normal limits. SKIN: Skin is warm and dry. -- 19:50 10/07/24 TOMAS Aguilar R.N. NURSING PROGRESS NOTES 19:05 10/07/24. Care transferred and report received (Fabio). -- 19:27 10/07/24 TOMAS Aguilar R.N. 19:40 10/07/24. Site #1 started via IV in the left antecubital space with a 20g angiocath with aseptic technique, ultrasound guidance and good blood return; 3 attempts. Blood drawn: rainbow set tube(s). Labeled in the presence of the patient and sent to the lab. Saline lock flushed with 5 mL saline. -- 19:41 10/07/24 TOMAS Abbasi R.N. 19:50 10/07/24. ( Pt is resting on cart). -- 19:50 10/07/24 TOMAS Aguilar R.N. 3 of 5 Nurse Narrative 19:58 10/07/24. IV NS 0.9 % 1000 mL started in bag#1 1000 mL at 999 mL/hr via Site# 2. Allergies verified and confirmed 5 rights. Via IV pump. IV patency established. IV site checked: no pain, redness, or swelling. IV flushed thoroughly pre-medication administration. Information reviewed with patient. -- 19:59 10/07/24 TOMAS Aguilar R.N. 20:05 10/07/24. Zofran IVP 4 mg given via Site# 1. Allergies verified and confirmed 5 rights. IV patency established. IV site checked: no pain, redness, or swelling. IV flushed thoroughly pre-medication administration. IVP given by nurse. Information reviewed with patient. -- 20:05 10/07/24 TOMAS Aguilar R.N. 20:08 10/07/24. KetorOLAC (Toradol) IVP 15 mg given via Site# 1. Allergies verified and confirmed 5 rights. IV patency established. IV site checked: no pain, redness, or swelling. IV flushed thoroughly pre-medication administration. IVP given by nurse. Information reviewed with patient including reason for taking this medication. Medication Wastage: 15 mg wasted. -- 20:08 10/07/24 TOMAS Aguilar R.N. 20:11 10/07/24. ( Pt is resting on cart). -- 20:11 10/07/24 TOMAS Aguilar R.N. 20:29 10/07/24. Patient walked to radiology with plant health care technician. -- 20:44 10/07/24 TOMAS Aguilar R.N. 20:45 10/07/24. Patient walked back from radiology with plant health care technician. -- 20:45 10/07/24 TOMAS Aguilar R.N. 20:48 10/07/24. ( Pt c/o increased pain to RUQ of abd. 8/10, Reported to ). -- 20:53 10/07/24 TOMAS Aguilar R.N. 21:00 10/07/24. HYDROmorphone (Dilaudid) IVP 0.5 mg given via Site# 1. Allergies verified and confirmed 5 rights. IV patency established. IV site checked: no pain, redness, or swelling. IV flushed thoroughly pre-medication administration. IVP given by nurse. Information reviewed with patient including reason for taking this medication. Medication Wastage: 0.5 mg wasted. -- 21:02 10/07/24 TOMAS Aguilar R.N. 21:05 10/07/24. ( Pt medicated as ordered. Resting on her left side.). -- 21:05 10/07/24 TOMAS Aguilar R.N. 21:05 10/07/24. KetorOLAC (Toradol) IVP: Medication Response. No adverse reaction. Pain is worsening. -- 21:06 10/07/24 TOMAS Aguilar R.N. 21:06 10/07/24. HYDROmorphone (Dilaudid) IVP: Medication Response. No adverse reaction. Pain is improving. Symptoms have improved. The patient feels better. -- 21:06 10/07/24 TOMAS Aguilar R.N. 22:00 10/07/24. ( Pain has lessened. 10). -- 23:59 10/07/24 TOMAS Aguilar R.N. 22:20 10/07/24. Zofran IVP 4 mg given via Site# 1. Confirmed 5 rights. IV patency established. IV site checked: no pain, redness, or swelling. IV flushed thoroughly pre-medication administration. IVP given by nurse. Information reviewed with patient. -- 22:24 10/07/24 TOMAS Aguilar R.N. 22:24 10/07/24. HYDROmorphone (Dilaudid) IVP 0.5 mg given via Site# 1. Allergies verified and confirmed 5 rights. IV patency established. IV site checked: no pain, redness, or swelling. IV flushed thoroughly pre-medication administration. IVP given by nurse. Information reviewed with patient. Medication Wastage: 0.5 mg wasted. -- 22:24 10/07/24 TOMAS Aguilar R.N. 22:28 10/07/24. BP: 101/58 (regular cuff) taken on right arm, while lying. MAP: 72. HR: 89. Regular and normal rate. RR: 16. Regular and unlabored. O2 saturation: 97% on room air. Pain level now 8/10. -- 22:29 10/07/24 TOMAS Aguilar R.N. 4 of 5 Nurse Narrative 22:38 10/07/24. HYDROmorphone (Dilaudid) IVP: Medication Response. No adverse reaction. Pain is improving. Symptoms have improved. The patient feels better. -- 22:38 10/07/24 TOMAS Aguilar R.N. 22:39 10/07/24. Zofran IVP: Medication Response. No adverse reaction. Pain is improving. Symptoms have improved. The patient feels better. -- 22:39 10/07/24 TOMAS Aguilar R.N. 23:36 10/08/24. Side rails up x 1. Bed placed in lowest position. Brakes of bed on. At the patient's bedside (23:25 10/08/2024). -- 00:01 10/08/24 TOMAS Aguilar R.N. DISPOSITION / DISCHARGE 19:44 10/07/24. Site #2 started via IV in the left antecubital space with a 20g angiocath with aseptic technique and ultrasound guidance. Blood drawn: rainbow set tube(s). Saline lock flushed with 5 mL saline. (Inserted per Keshia VALDIVIA.) -- 19:59 10/07/24 TOMAS Aguilar R.N. 20:03 10/07/24. IV NS 0.9 %: Medication Discontinued. bag #1 infused. Total amount infused: 1000 mL. IV patency established. IV site checked: no pain, redness, or swelling. IV flushed thoroughly post-medication administration. -- 00:03 10/08/24 TOMAS Aguilar R.N. Departure time: 23:36 10/07/2024. Condition at departure: improved. No learning barriers present. Discharge instructions provided and reviewed with the patient. Patient verbalized understanding. Written instructions provided in Scottish. The patient was discharged by the physician. The patient was discharged home and accompanied by spouse. The patient left ambulatory and via private vehicle. Spouse driving. -- 00:04 10/08/24 TOMAS Aguilar R.N. 23:36 10/07/24. Site #1 removed upon discharge. Catheter intact. Pressure dressing applied. -- 00:05 10/08/24 TOMAS Aguilar R.N. 23:36 10/07/24. Site #2 removed upon discharge. Catheter intact. Pressure dressing applied. -- 00:06 10/08/24 TOMAS Aguilar R.N. (Electronically signed by Ingrid Aguilar R.N. 10/08/24 00:07:23 EST) Generated by [employer] 5 of 5 ED PHYSICIAN CLINICAL REPORT Observed: 1 12/08/2023 6:23 PM Status: F Source: [facility] Narrative Physician Clinical Narrative [facility] [address] [place] [address] [phone] 10/07/2024 Patient: JAQUELIN SZYMANSKI Sex: Female : 1995 Age: 29y Disposition: Discharge to Home Disposition Decision Time: 23:27 10/07/2024 Departure Time: 23:36 10/07/2024 Measurements Wt: 86.6 kg, Ht/Osmar: 65.0 in, BMI: 31.78 Initial Vital Sign Measured Time BP MAP HR RR O2Sat ETCO2 Temp Pain GCS RTS 18:28 10/07/2024 108/69 82 108 17 97% 98.0 F 8 Time Seen: 19:30 10/07/2024. Historian- patient. HISTORY OF PRESENT ILLNESS Chief Complaint: FLANK PAIN. Additional history - ( Patient is a 29-year-old female who presents to the ED with complaint of ongoing right-sided flank pain, over the last 2 days, described as constant, sharp, nothing makes it worse or better. She has a history of renal stones, and thinks that this feels like 1. She denies vomiting, but admits to nausea. Denies urinary symptoms. Having normal bowel movement. Denies chest pain, shortness of breath, fever or chills. Denies tobacco use, denies ETOH use or any illicit drug History of cholecystectomy, hysterectomy in the past.). REVIEW OF SYSTEMS negative review of system unless otherwise mentioned in HPI. 1 of 14 Narrative PAST HISTORY Stewart's Disease Diabetes Mellitus Type 2 Grave's Disease Migraine Headache Seizure Surgeries: Appendectomy Gallbladder Surgery Total abdominal hysterectomy Medications: Aimovig Autoinjector 70 mg/mL subcutaneous auto-injector: 1 once a month. atorvastatin 10 mg tablet: 1 tablet once a day. clomipramine 50 mg capsule: 2 capsule twice a day. dexamethasone 0.5 mg tablet: 1 once a day. eletriptan 40 mg tablet: 1 tablet as directed. fludrocortisone 0.1 mg tablet: 1 once a day. Jardiance 10 mg tablet: 1 once a day. levothyroxine 125 mcg tablet: 1 once a day. lorazepam 1 mg tablet: Stopped 10/07/2024. lurasidone 40 mg tablet: 1 once a day. topiramate 25 mg tablet: 1 once a day. Xanax 0.5 mg tablet: 1 once a day. Allergies: azithromycin Excedrin Migraine latex Neosporin ([id number]) Home Medications/Allergy Information Source: patient - Brianna RodríguezAngel Luis, 10/07/2024 18:26 EST 2 of 14 Narrative SOCIAL HISTORY Never smoker. ADDITIONAL NOTES The nursing notes have been reviewed. PHYSICAL EXAM Vital Signs: Have been reviewed. Appearance: Alert. Oriented X3. No acute distress. Eyes: Eyes normal inspection. ENT: Ears normal. Neck: Normal inspection. CVS: Normal heart rate. Respiratory: No respiratory distress. Rectal: Mild right-sided CVA tenderness, no right lower quadrant pain, mild right upper quadrant tenderness on exam, no guarding, no rigidity on exam. Skin: Normal skin color. Extremities: Extremities exhibit normal ROM. Neuro: Oriented X 3. No motor deficit. LABS, X-RAYS, AND EKG Diagnostic Tests: Diagnostic tests have been ordered, with results reviewed and considered in the medical decision making process. Laboratory Tests: CBC + DIFF Final LENORA: 10/07/2024 19:40:00 EST MsgRcvd: 10/07/2024 20:11 EST Lab Test Result Reference Status Received Comments 10/07/2024 20:11 CBC-COMPLETE CBC + DIFF Final EST BLOOD COUNT 3 of 14 Narrative 10/07/2024 20:11 WBC 8.7 x 10/UL 4.5 - 10.8 Final EST 10/07/2024 20:11 RBC 4.86 x 10/UL 4.10 - 5.30 Final EST 10/07/2024 20:11 HEMOGLOBIN 12.2 g/dl 12.0 - 16.0 Final EST 10/07/2024 20:11 HEMATOCRIT 36.7 % 34.0 - 46.0 Final EST 76 fl 10/07/2024 20:11 MCV 80 - 99 Final Below low normal EST 25 pg 10/07/2024 20:11 MCH 27 - 33 Final Below low normal EST 10/07/2024 20:11 MCHC 33 X10 3 32 - 36 Final EST 17.0 % 10/07/2024 20:11 RDW/CV 12.0 - 15.6 Final Above high normal EST 10/07/2024 20:11 PLATELET 336 x10/UL 150 - 450 Final EST 10/07/2024 20:11 AUTOMATED MPV 7.8 fl 6.6 - 10.5 Final EST DIFFERENTIAL 10/07/2024 20:11 NEUT % 58.1 % 46.0 - 76.0 Final EST 10/07/2024 20:11 LYMPH % 32.6 % 20.0 - 45.0 Final EST 10/07/2024 20:11 MONOS % 8.7 % 0.0 - 10.0 Final EST 10/07/2024 20:11 EO % 0.4 % 0.0 - 7.0 Final EST 4 of 14 Narrative 10/07/2024 20:11 BASO % 0.3 % 0.0 - 2.0 Final EST 2.83 x10/UL 10/07/2024 20:11 Lymph # 0.80 - 2.80 Final Above high normal EST 10/07/2024 20:11 Neut # 5.04 x10/UL 1.50 - 7.10 Final EST 10/07/2024 20:11 Cannon # 0.75 x10/UL 0.20 - 1.00 Final EST 10/07/2024 20:11 EO # 0.03 x10/UL 0.00 - 0.50 Final EST 10/07/2024 20:11 Baso # 0.02 x10/UL 0.00 - 0.10 Final EST 10/07/2024 20:11 MANUAL DIFF N/A New Order EST 10/07/2024 20:11 MORPHOLOGY N/A New Order EST CMP with eGFR Final LENORA: 10/07/2024 19:40:00 EST MsgRcvd: 10/07/2024 20:19 EST Lab Test Result Reference Status Received Comments COMPREHENSIVE 10/07/2024 CMP with eGFR Final METABOLIC 20:19 EST PANEL 10/07/2024 SODIUM 137 mmol/l 136 - 145 Final 20:19 EST 10/07/2024 POTASSIUM 4.2 mmol/L 3.5 - 5.1 Final 20:19 EST 5 of 14 Narrative 10/07/2024 CHLORIDE 102 mmol/L 98 - 107 Final 20:19 EST 10/07/2024 CO2 26.7 mmol/L 21.0 - 32.0 Final 20:19 EST 10/07/2024 GLUCOSE 88 mg/dl 74 - 106 Final 20:19 EST 10/07/2024 BUN 7 mg/dl 7 - 18 Final 20:19 EST 10/07/2024 CREATININE 0.97 mg/dl 0.55 - 1.02 Final 20:19 EST 10/07/2024 AST/SGOT 20 U/L 13 - 39 Final 20:19 EST 10/07/2024 ALK PHOS 116 U/L 46 - 116 Final 20:19 EST 10/07/2024 CALCIUM 9.3 mg/dl 8.5 - 10.1 Final 20:19 EST TOTAL 10/07/2024 7.9 g/dl 6.4 - 8.2 Final PROTEIN 20:19 EST 3.3 g/dL 10/07/2024 ALBUMIN 3.4 - 5.0 Final Below low normal 20:19 EST 4.6 G/DL 10/07/2024 GLOBULIN Above high 1.5 - 3.8 Final 20:19 EST normal 0.7 10/07/2024 A/G RATIO 0.9 - 1.6 Final Below low normal 20:19 EST 10/07/2024 TOTAL BILI 0.6 mg/dl 0.2 - 1.0 Final 20:19 EST 6 of 14 Narrative 10/07/2024 B/C RATIO 7 ratio 0 - 30 Final 20:19 EST 10/07/2024 ALT/SGPT 30 U/L 16 - 63 Final 20:19 EST 10/07/2024 ANION GAP 13 mmol/L 10 - 20 Final 20:19 EST 10/07/2024 AGE 29 years Final 20:19 EST 10/07/2024 eGFR >60 ML/MINUTE 60 - 999 Final 20:19 EST 7 of 14 Narrative ACCORDING TO THE NATIONAL KIDNEY DISEASE EDUCATION PROGRAM(NKDE), A NORMAL eGFR IS A VALUE GREATER THAN OR EQUAL TO 60 ML/MIN/1.73 SQ METERS. 10/07/2024 CHRONIC KIDNEY eGFR(AA) >60 ML/MINUTE 60 - 999 Final 20:19 EST DISEASE: <60mL/MIN/1.73 SQ METERS KIDNEY FAILURE: <15mL/MIN/1.73 SQ METERS THIS TEST SHOULD ONLY BE USED FOR PATIENTS 18 YEARS OF AGE AND OLDER. LIPASE Final LENORA: 10/07/2024 19:40:00 EST MsgRcvd: 10/07/2024 20:19 EST Lab Test Result Reference Status Received Comments 8 of 14 Narrative *PLEASE NOTE THAT RANGES FOR LIPASE HAVE CHANGED OF 10/20/23 DUE TO AN ASSAY 10/07/2024 LIPASE 21.0 U/L 15.0 - 78.0 Final UPDATE BY THE 20:19 EST PRODUCTION CONTROLLER.THE NEW ASSAY RANGE IS 6-250 U/L, WITH A REFERENCE RANGE OF 16-77 U/L. URINE Final LENORA: 10/07/2024 23:20:00 EST MsgRcvd: 10/07/2024 23:59 EST Lab Test Result Reference Status Received Comments 10/07/2024 23:59 NEGATIVE NEGATIVE Final UR EST 10/07/2024 23:59 INTERNAL QC PASS Final EST EXTERNAL QC 10/07/2024 23:59 YES Final DONE? EST URINALYSIS Final LENROA: 10/07/2024 23:20:00 EST MsgRcvd: 10/08/2024 00:02 EST Lab Test Result Reference Status Received Comments 10/08/2024 00:02 URINALYSIS Final URINALYSIS EST 10/08/2024 00:02 Specimen Type R New Order EST 9 of 14 Narrative NORMAL: 10/08/2024 00:02 Color yellow Final YELLOW EST NORMAL: 10/08/2024 00:02 Clarity clear Final CLEAR EST NORMAL: 10/08/2024 00:02 ph 5 Final 5.0-8.0 EST NORMAL: 10/08/2024 00:02 Protein NEG Final NEGATIVE EST 1000 NORMAL: 10/08/2024 00:02 Glucose Final Abnormal NORMAL EST NORMAL: 10/08/2024 00:02 Ketone NEG Final NEGATIVE EST NORMAL: 10/08/2024 00:02 Bilirubin NEG Final NEGATIVE EST 25 NORMAL: 10/08/2024 00:02 Blood Final Abnormal NEGATIVE EST NORMAL: 10/08/2024 00:02 Urobilinog NORM Final NORMAL EST NORMAL: 10/08/2024 00:02 Sp [place] 1.020 Final 1.010-1.030 EST NORMAL: 10/08/2024 00:02 Nitrite NEG Final NEGATIVE EST NORMAL: 10/08/2024 00:02 Leukocytes NEG Final NEGATIVE EST 10/08/2024 00:02 Microscopic SEE BELOW Final MICROSCOPIC EST 10/08/2024 00:02 Wbc NONE 0-5/hpf Final EST of 14 Narrative 10/08/2024 00:02 Rbc 0-5 0-3/hpf Final EST 10/08/2024 00:02 Casts NONE Final EST 10/08/2024 00:02 Crystals NONE Final EST 10/08/2024 00:02 Amorphous NONE Final EST 10/08/2024 00:02 Bacteria 1+ Final EST 10/08/2024 00:02 Epi Cells FEW Final EST 10/08/2024 00:02 Mucous 2+ Final EST 10/08/2024 00:02 Yeast NONE Final EST Diagnostic Study Tests: CT KUB (KIDNEY STONE PROTOCOL) Final EXAM Date: 10/07/2024 21:06:00 EST MsgRcvd: 10/07/2024 21:06 EST [place] [id number] Patient: JAQUELIN SZYMANSKI Phone#: : 1995 Age: 29 Gender: F Pt. Type: ER Account: [id number] Location: 052 Ordering: DR. STEPHANIE RODAS Exam Date: 10/07/2024/20:39 Family Phys: KEVIN BRADLEY Charge Code: [id number] Physician: [place] Order #: [id number] Narrative Dose#: 13.2 mGy PROCEDURE: CT ABDOMEN AND PELVIS WITHOUT CONTRAST COMPARISON: [facility], CT,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 MEDICATION/IV/DRIP/FLUID ORDERS Order Description Priority Entered Acknowledged Completed IV NS 0.9 %1000 mL at 500 11:28 08/26/2024 11:35 mL/hr (NOW x1) Kevin Garcia, 08/26/2024 Ken Torrez, Angel Luis LAB ORDERS Order Description Priority Entered Acknowledged Collected Completed CBC w Diff Stat Stat 10:58 08/26/2024 10:59 08/26/2024 10:59 08/26/2024 Tila Hampton Natalie Yoder, D.O. R.N. R.Marlee. CMP Stat Stat 10:58 08/26/2024 10:59 08/26/2024 10:59 08/26/2024 Tila Hampton Natalie Yoder, D.O. R.N. R.Marlee. Troponin-I Stat Stat 10:58 08/26/2024 10:59 08/26/2024 10:59 08/26/2024 Tila Hampton Natalie Yoder, 1 of 3 Order Sheet Ken Hein R.Marlee. EKG - ED Stat Stat 10:58 08/26/2024 10:59 08/26/2024 10:59 08/26/2024 Tila Hampton Natalie Yoder, D.O. R.N. R.N. Urinalysis Stat Stat 11:29 08/26/2024 11:30 08/26/2024 11:30 08/26/2024 Tila Hampton Natalie Yoder, D.O. R.N. R.NKaye Troponin-I Stat Stat 12:41 08/26/2024 12:49 08/26/2024 13:33 08/26/2024 Tila Hampton Natalie Yoder, D.O. R.NKaye R.NKaye DIAGNOSTIC STUDY ORDERS Order Description Priority Entered Acknowledged Completed STAFF ORDERS Order Description Priority Entered Acknowledged Collected Completed Obtain Old EKG 10:58 08/26/2024 10:59 08/26/2024 10:59 08/26/2024 Tila Hampton Natalie Yoder, D.O. R.N. R.N. Lining Mechanic 10:58 08/26/2024 10:59 08/26/2024 10:59 08/26/2024 Tila Hampton Natalie Yoder, D.O. R.NKaye RRicky Vital signs every 15 10:58 08/26/2024 10:59 08/26/2024 10:59 08/26/2024 minutes Tila Hampton Natalie Yoder, D.O. R.NKaye RRicky 2 of 3 Order Sheet IV Saline Lock 10:58 08/26/2024 10:59 08/26/2024 10:59 08/26/2024 Tila Hampton Natalie Yoder, D.O. R.N. RRicky Vitals - Orthostatic 13:15 08/26/2024 13:33 08/26/2024 13:33 08/26/2024 Tila Hampton Natalie Yoder, D.O. R.N. RRicky [Electronically signed by Kevin Garcia D.O. (08/27/2024 00:13 EST)] 3 of 3 ED PHYSICIAN CLINICAL REPORT Observed: 08/26/2024 10:39 AM Status: F Source: [facility] Narrative Physician Clinical Narrative [address] [address] [id number] 08/26/2024 Patient: JAQUELIN SZYMANSKI Sex: Female : 1995 Age: 29y Disposition: Discharge to Home Disposition Decision Time: 14:10 08/26/2024 Departure Time: 14:37 08/26/2024 Measurements Wt: 87.1 kg, Ht/Osmar: 65.0 in, BMI: 31.95 Initial Vital Sign Measured Time BP MAP HR RR O2Sat ETCO2 Temp Pain GCS RTS 10:45 08/26/2024 115/82 89 95 Time Seen: 10:50 08/26/2024. Arrived- By ambulance. Historian- patient. Independent historian- EMS personnel. HISTORY OF PRESENT ILLNESS Chief Complaint: SINGLE SYNCOPAL EPISODE. This occurred just prior to arrival. The patient has recovered. The patient had preceding symptoms of light-headedness and dim vision. The patient had preceding symptoms of nausea (vomiting). The patient felt faint and lost consciousness. REVIEW OF SYSTEMS GI: No abdominal pain, vomiting or diarrhea. NEUROLOGICAL: No headache or dizziness. ENDO/HEME/LYMPH: No enlarged lymph nodes. CONSTITUTIONAL: No fever. THROAT: No sore throat. : No difficulty with urination. SKIN: No skin rash. CVS: No chest pain or palpitations. PAST HISTORY 1 of 11 Narrative Stewart's Disease Diabetes Mellitus Type 2 Grave's Disease Migraine Headache Seizure Surgeries: Appendectomy Gallbladder Surgery Total abdominal hysterectomy Medications: Aimovig Autoinjector 70 mg/mL subcutaneous auto-injector atorvastatin 10 mg tablet clomipramine 50 mg capsule dexamethasone 0.5 mg tablet eletriptan 40 mg tablet fludrocortisone 0.1 mg tablet Jardiance 10 mg tablet levothyroxine 125 mcg tablet lorazepam 1 mg tablet lurasidone 40 mg tablet topiramate 25 mg tablet Allergies: azithromycin Excedrin Migraine latex Neosporin (uhl-nzr-pljmh) SOCIAL HISTORY Never smoker. No alcohol use. ADDITIONAL NOTES The nursing notes have been reviewed. 2 of 11 Narrative PHYSICAL EXAM Appearance: Alert. No acute distress. Head: Swelling (patient's swelling probable from steroid use). Eyes: Pupils equal, round and reactive to light. No nystagmus. ENT: Normal ENT inspection. TM's normal. Pharynx normal. Neck: Neck supple. CVS: Normal heart rate and rhythm. Heart sounds normal. Respiratory: No respiratory distress. Abdomen: Soft and nontender. Back: Normal inspection. Skin: Skin warm and dry. Normal skin color. No rash. Extremities: Extremities exhibit normal ROM. No lower extremity edema. Neuro: Alert. Oriented X 3. Mood/affect normal. Cranial nerves normal (as tested). No cerebellar findings. No motor deficit. No sensory deficit. LABS, X-RAYS, AND EKG Laboratory Tests: CBC + DIFF Final LENORA: 08/26/2024 10:51:00 EST MsgRcvd: 08/26/2024 11:47 EST Lab Test Result Reference Status Received Comments 08/26/2024 11:47 CBC-COMPLETE CBC + DIFF Final EST BLOOD COUNT 08/26/2024 11:47 WBC 9.1 x 10/UL 4.5 - 10.8 Final EST 5.38 x 10/UL 08/26/2024 11:47 RBC 4.10 - 5.30 Final Above high normal EST 08/26/2024 11:47 HEMOGLOBIN 12.9 g/dl 12.0 - 16.0 Final EST 3 of 11 Narrative 08/26/2024 11:47 HEMATOCRIT 40.1 % 34.0 - 46.0 Final EST 75 fl 08/26/2024 11:47 MCV 80 - 99 Final Below low normal EST 24 pg 08/26/2024 11:47 MCH 27 - 33 Final Below low normal EST 08/26/2024 11:47 MCHC 32 X10 3 32 - 36 Final EST 17.5 % 08/26/2024 11:47 RDW/CV 12.0 - 15.6 Final Above high normal EST 08/26/2024 11:47 PLATELET 449 x10/UL 150 - 450 Final EST 08/26/2024 11:47 AUTOMATED MPV 7.9 fl 6.6 - 10.5 Final EST DIFFERENTIAL 08/26/2024 11:47 NEUT % 67.2 % 46.0 - 76.0 Final EST 08/26/2024 11:47 LYMPH % 24.1 % 20.0 - 45.0 Final EST 08/26/2024 11:47 MONOS % 8.2 % 0.0 - 10.0 Final EST 08/26/2024 11:47 EO % 0.3 % 0.0 - 7.0 Final EST 08/26/2024 11:47 BASO % 0.3 % 0.0 - 2.0 Final EST 08/26/2024 11:47 Lymph # 2.19 x10/UL 0.80 - 2.80 Final EST 08/26/2024 11:47 Neut # 6.13 x10/UL 1.50 - 7.10 Final EST 4 of 11 Narrative 08/26/2024 11:47 Cannon # 0.75 x10/UL 0.20 - 1.00 Final EST 08/26/2024 11:47 EO # 0.02 x10/UL 0.00 - 0.50 Final EST 08/26/2024 11:47 Baso # 0.02 x10/UL 0.00 - 0.10 Final EST 08/26/2024 11:47 MANUAL DIFF SEE BELOW Final EST 08/26/2024 11:47 SEGS 69 % 46 - 76 Final EST 08/26/2024 11:47 LYMPH 25 % 20 - 45 Final EST 08/26/2024 11:47 MONOS 6% 0 - 10 Final EST 08/26/2024 11:47 CELL COUNT 100 Final EST 08/26/2024 11:47 MORPHOLOGY N/A New Order EST CMP with eGFR Final LENORA: 08/26/2024 10:51:00 EST MsgRcvd: 08/26/2024 11:27 EST Lab Test Result Reference Status Received Comments COMPREHENSIVE 08/26/2024 CMP with eGFR Final METABOLIC 11:27 EST PANEL 08/26/2024 SODIUM 139 mmol/l 136 - 145 Final 11:27 EST 5 of 11 Narrative 08/26/2024 POTASSIUM 4.4 mmol/L 3.5 - 5.1 Final 11:27 EST SPECIMEN MODERATELY 08/26/2024 New Order HEMOLYZED 11:27 EST MODERATELY 08/26/2024 CHLORIDE 100 mmol/L 98 - 107 Final 11:27 EST 08/26/2024 CO2 25.6 mmol/L 21.0 - 32.0 Final 11:27 EST 08/26/2024 GLUCOSE 90 mg/dl 74 - 106 Final 11:27 EST 08/26/2024 BUN 8 mg/dl 7 - 18 Final 11:27 EST 08/26/2024 CREATININE 0.94 mg/dl 0.55 - 1.02 Final 11:27 EST 08/26/2024 AST/SGOT 34 U/L 13 - 39 Final 11:27 EST 129 U/L 08/26/2024 ALK PHOS Above high 46 - 116 Final 11:27 EST normal 08/26/2024 CALCIUM 9.7 mg/dl 8.5 - 10.1 Final 11:27 EST 8.4 g/dl TOTAL 08/26/2024 Above high 6.4 - 8.2 Final PROTEIN 11:27 EST normal 08/26/2024 ALBUMIN 3.9 g/dL 3.4 - 5.0 Final 11:27 EST 6 of 11 Narrative 4.5 G/DL 08/26/2024 GLOBULIN Above high 1.5 - 3.8 Final 11:27 EST normal 08/26/2024 A/G RATIO 0.9 0.9 - 1.6 Final 11:27 EST 1.5 mg/dl 08/26/2024 TOTAL BILI Above high 0.2 - 1.0 Final 11:27 EST normal 08/26/2024 B/C RATIO 9 ratio 0 - 30 Final 11:27 EST 08/26/2024 ALT/SGPT 52 U/L 16 - 63 Final 11:27 EST 08/26/2024 ANION GAP 18 mmol/L 10 - 20 Final 11:27 EST 08/26/2024 AGE 29 years Final 11:27 EST 08/26/2024 eGFR >60 ML/MINUTE 60 - 999 Final 11:27 EST 7 of 11 Narrative ACCORDING TO THE NATIONAL KIDNEY DISEASE EDUCATION PROGRAM(NKDE), A NORMAL eGFR IS A VALUE GREATER THAN OR EQUAL TO 60 ML/MIN/1.73 SQ METERS. 08/26/2024 CHRONIC KIDNEY eGFR(AA) >60 ML/MINUTE 60 - 999 Final 11:27 EST DISEASE: <60mL/MIN/1.73 SQ METERS KIDNEY FAILURE: <15mL/MIN/1.73 SQ METERS THIS TEST SHOULD ONLY BE USED FOR PATIENTS 18 YEARS OF AGE AND OLDER. TROPONIN Final LENORA: 08/26/2024 10:51:00 EST MsgRcvd: 08/26/2024 11:27 EST Lab Test Result Reference Status Received Comments 08/26/2024 11:27 HS TROPONIN <4.0 pg/mL 0.0 - 51.4 Final EST TROPONIN 8 of 11 Narrative Final LENORA: 08/26/2024 12:56:00 EST MsgRcvd: 08/26/2024 13:43 EST Lab Test Result Reference Status Received Comments 08/26/2024 13:43 HS TROPONIN <4.0 pg/mL 0.0 - 51.4 Final EST URINALYSIS Final LENORA: 08/26/2024 12:48:00 EST MsgRcvd: 08/26/2024 13:17 EST Lab Test Result Reference Status Received Comments 08/26/2024 13:17 URINALYSIS Final URINALYSIS EST 08/26/2024 13:17 Specimen Type R New Order EST NORMAL: 08/26/2024 13:17 Color p.yel Final YELLOW EST NORMAL: 08/26/2024 13:17 Clarity clear Final CLEAR EST NORMAL: 08/26/2024 13:17 ph 6.5 Final 5.0-8.0 EST 15 NORMAL: 08/26/2024 13:17 Protein Final Abnormal NEGATIVE EST 1000 NORMAL: 08/26/2024 13:17 Glucose Final Abnormal NORMAL EST 5 NORMAL: 08/26/2024 13:17 Ketone Final Abnormal NEGATIVE EST NORMAL: 08/26/2024 13:17 Bilirubin NEG Final NEGATIVE EST 9 of 11 Narrative 10 NORMAL: 08/26/2024 13:17 Blood Final Abnormal NEGATIVE EST NORMAL: 08/26/2024 13:17 Urobilinog NORM Final NORMAL EST NORMAL: 08/26/2024 13:17 Sp [place] 1.010 Final 1.010-1.030 EST NORMAL: 08/26/2024 13:17 Nitrite POS Final NEGATIVE EST NORMAL: 08/26/2024 13:17 Leukocytes NEG Final NEGATIVE EST 08/26/2024 13:17 Microscopic SEE BELOW Final MICROSCOPIC EST 08/26/2024 13:17 Wbc NONE 0-5/hpf Final EST 08/26/2024 13:17 Rbc 0-5 0-3/hpf Final EST 08/26/2024 13:17 Casts NONE Final EST 08/26/2024 13:17 Crystals NONE Final EST 08/26/2024 13:17 Amorphous NONE Final EST 08/26/2024 13:17 Bacteria 1+ Final EST 08/26/2024 13:17 Epi Cells FEW Final EST 08/26/2024 13:17 Mucous NONE Final EST 10 of 11 Narrative 08/26/2024 13:17 Yeast NONE Final EST PROGRESS AND PROCEDURES MEDICAL DECISION MAKING: (patient came in she was having nausea and vomiting this morning and felt lightheaded. And when the squad was there they are getting her to go and she passed out briefly they caught her. She presented to the emergency department her EKGs see no obvious ST elevation or depression. Her electrolytes were unremarkable. She has had 2 sets of cardiac markers which were unremarkable. I suspect she had 2 mild dehydration and or vagal when she had her episode where she passed out. She will be discharged home. And told to return if any problems or concerns.). Disposition: Condition: stable. Discharged in fair condition. Discharge decision based on the following: patient's condition is stable; patient's exam is stable. CLINICAL IMPRESSION Syncope. Vomiting with nausea. Possible acute urinary tract infection with cystitis. No hematuria. DISCHARGE INSTRUCTIONS Prescription Medications: cephalexin 500 mg tablet: Take 1 tablet by mouth twice a day for 3 days, dispense 6 tablet. Refills 0. Pharmacy: [id number] - [address] [place] [address]. Follow-up: Follow up with your doctor in two. Call for an appointment. (Electronically signed by Kevin Garcia D.O. 08/27/24 00:12:59 EST) [facility] by [facility] of 11 ED VITALS FLOW SHEET Observed: 10:39 AM Status: F Source: [facility] Vitals Vital Sign Flow Sheet [place] [address] [place] [address] [phone] 08/26/2024 Patient: JAQUELIN SZYMANSKI Sex: Female : 1995 Age: 29y Measurements Wt: 87.1 kg, Ht/Osmar: 65.0 in, BMI: 31.95 Measured Time BP MAP HR RR O2Sat ETCO2 Temp Pain GCS RTS 14:33 08/26/2024 94 100% 14:28 08/26/2024 86 97% 14:26 08/26/2024 112/81 91 78 14:23 08/26/2024 82 96% 14:18 08/26/2024 88 97% 14:13 08/26/2024 76 98% 14:08 08/26/2024 75 96% 14:07 08/26/2024 95/64 70 74 14:03 08/26/2024 78 95% 13:58 08/26/2024 79 97% 13:53 08/26/2024 84 96% 13:48 08/26/2024 86 98% 13:47 08/26/2024 110/60 76 82 13:43 08/26/2024 79 98% 13:38 08/26/2024 82 99% 1 of 4 Vitals Measured Time BP MAP HR RR O2Sat ETCO2 Temp Pain GCS RTS 13:33 08/26/2024 79 99% 13:30 08/26/2024 113/73 86 95 16 98% 13:30 08/26/2024 113/73 81 97 13:28 08/26/2024 85 98% 13:28 08/26/2024 110/84 89 83 13:28 08/26/2024 110/84 93 85 16 99% 13:26 08/26/2024 100/66 77 84 16 99% 13:25 08/26/2024 100/66 77 80 13:23 08/26/2024 84 96% 13:18 08/26/2024 84 97% 13:13 08/26/2024 82 95% 13:08 08/26/2024 81 96% 13:06 08/26/2024 106/77 83 78 13:03 08/26/2024 83 95% 12:58 08/26/2024 85 96% 12:53 08/26/2024 82 98% 12:48 08/26/2024 78 99% 12:46 08/26/2024 115/77 84 74 12:38 08/26/2024 83 95% 12:33 08/26/2024 79 96% 12:30 08/26/2024 108/82 89 75 12:28 08/26/2024 81 96% 12:23 08/26/2024 80 96% 12:18 08/26/2024 81 97% 12:15 08/26/2024 118/84 92 75 2 of 4 Vitals Measured Time BP MAP HR RR O2Sat ETCO2 Temp Pain GCS RTS 12:13 08/26/2024 80 96% 12:08 08/26/2024 85 88% 12:03 08/26/2024 82 94% 12:00 08/26/2024 114/81 91 77 11:58 08/26/2024 81 95% 11:53 08/26/2024 78 95% 11:48 08/26/2024 87 98% 11:45 08/26/2024 105/67 79 84 11:43 08/26/2024 83 96% 11:38 08/26/2024 83 93% 11:33 08/26/2024 77 91% 11:30 08/26/2024 109/81 89 78 11:28 08/26/2024 87 95% 11:23 08/26/2024 88 98% 11:18 08/26/2024 89 90% 11:15 08/26/2024 110/77 85 82 11:13 08/26/2024 87 88% 11:08 08/26/2024 88 88% 11:03 08/26/2024 79 98% 11:00 08/26/2024 103/73 80 84 10:58 08/26/2024 93 99% 10:53 08/26/2024 89 95% 10:48 08/26/2024 91 99% 10:48 08/26/2024 115/82 93 88 18 99% 97.6 F 0 10:45 08/26/2024 115/82 89 95 3 of 4 Vitals 4 of 4 ED SUPER BILL Observed: 08/26/2024 10:39 AM Status: F [facility] [address] [place] [address] [phone] 08/26/2024 Patient: JAQUELIN SZYMANSKI Sex: Female : 1995 Age: 29y Item Professional Category Description Facility Code Code Quantity Fee Total Nurse/E/M EMERGENCY 843556 1 $0.00 $0.00 DEPARTMENT VISIT MODERATE SEVERITY (44897-51) Grand Total $0.00 Providers Kevin Garcia D.O. Chief Complaint SINGLE SYNCOPAL EPISODE. Principal Diagnosis Syncope. Vomiting with nausea. [facility] R[facility]: Syncope and collapse R11.2: Nausea with vomiting, unspecified 2 of 2 ED VISIT SUMMARY Observed: 08/26/2024 10:39 AM Status: F Source: [facility] Visit Overview Visit Overview [address] [place] [address] [phone] 08/26/2024 Patient: JAQUELIN SZYMANSKI Sex: Female : 1995 Age: 29y 08/27/2024 12:13 AM EST ED Arrival:10:39 08/26/2024 EST Status: Recent Travel:no Language:eng Adv Directive:No Isolation Status: Ethnicity:N Fall Risk:risk Infectious Disease Exposure:no Measurements:5'5 / 165.1 Self-Harm Status:risk Sepsis Screen:negative cm 192.0 lb / 87.1 kg Chief Complaint:DIZZINESS and FAINTING ALLERGIES azithromycin Excedrin Migraine latex Neosporin ([id number]) HOME MEDICATIONS Aimovig Autoinjector 70 mg/mL subcutaneous auto-injector atorvastatin 10 mg tablet clomipramine 50 mg capsule dexamethasone 0.5 mg tablet 1 of 3 Visit Overview eletriptan 40 mg tablet fludrocortisone 0.1 mg tablet Jardiance 10 mg tablet levothyroxine 125 mcg tablet lorazepam 1 mg tablet lurasidone 40 mg tablet topiramate 25 mg tablet 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 To room via stretcher. Patient gowned. GENERAL / NEURO / PSYCH: Alert. Oriented X 4. Appears in no acute distress. ( Pt believes she had a seizure earlier. She isn't acting post-ictal. A Ox4). HEENT: Pupils equal, round and reactive to light. RESPIRATORY: Respirations not labored. CVS: Capillary refill less than 2 seconds. Pulses within normal limits. SKIN: Skin is warm and dry. VITAL SIGNS First Vitals Last Vitals Temp 10:45 08/26/24 Temp 14:33 08/26/24 BP 10:45 08/26/24 115/82 BP 14:33 08/26/24 HR 10:45 08/26/24 95 HR 14:33 08/26/24 94 RR 10:45 08/26/24 RR 14:33 08/26/24 O2 Sat 10:45 08/26/24 O2 Sat 14:33 08/26/24 100% Pain 10:45 08/26/24 Pain 14:33 08/26/24 ETCO2 10:45 08/26/24 ETCO2 14:33 08/26/24 GCS 10:45 08/26/24 GCS 14:33 08/26/24 RTS 10:45 08/26/24 RTS 14:33 08/26/24 PROCEDURES NURSING INTERVENTIONS LABS / STUDIES LABS / STUDIES ORDERED CBC w Diff CMP EKG - ED Troponin-I Troponin-I Urinalysis CLINICAL IMPRESSION POSSIBLE ACUTE URINARY TRACT INFECTION WITH CYSTITIS. NO HEMATURIA SYNCOPE VOMITING WITH NAUSEA 3 of 3 ED NURSES CLINICAL NOTE Observed: 2023 10:39 AM Status: F Source: [facility] Nurse Narrative Nurse Clinical Narrative [facility] [place] [address] [phone] 08/26/2024 Patient: JAQUELIN SZYMANSKI Sex: Female : 1995 Age: 29y Disposition: Discharge to Home Disposition Decision Time: 14:10 08/26/2024 Departure Time: 14:37 08/26/2024 TRIAGE Arrived by EMS, and from home. Historian: patient. Primary physician (Mirna). ( Pt woke up feeling dizzy. Pt stated to vomit, which caused her BP to drop. Pt had a syncopal episode when squad arrived but she was caught before she went down.). Triage time: 10:44 08/26/2024. Acuity: LEVEL 3. This started just prior to arrival. 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 SEPSIS SCREEN: NEGATIVE. SIRS criteria negative. No possible sources of infection. -- 10:49 08/26/24 TOMAS Torrez R.N. 10:48 08/26/24. BP: 115/82 MAP: 93. HR: 88. RR: 18. O2 saturation: 99% Temperature: 97.6 F (oral). Pain level now 0/10. -- 10:48 08/26/24 TOMAS Torrez R.N. Acuity: LEVEL 3. Chief Complaint: DIZZINESS and FAINTING. 10:58 08/26/24. -- 10:58 08/26/24 TOMAS Torrez R.N. Measurements: 10:49 08/26/24 Wt: 87.1 kg, Ht/Osmar: 65.0 in, BMI: 31.95 -- 10:49 08/26/24 TOMAS Torrez R.N. 1 of 4 Nurse Narrative Medications: atorvastatin 10 mg tablet -- 10:47 08/26/24 TOMAS Torrez R.N. levothyroxine 125 mcg tablet -- 10:47 08/26/24 TOMAS Torrez R.N. topiramate 25 mg tablet -- 10:47 08/26/24 TOMAS Torrez R.N. dexamethasone 0.5 mg tablet -- 10:47 08/26/24 EST Tila Torrez R.N. clomipramine 50 mg capsule -- 10:47 08/26/24 TOMAS Torrez R.N. fludrocortisone 0.1 mg tablet -- 10:47 08/26/24 EST Tila Torrez R.N. eletriptan 40 mg tablet -- 10:47 08/26/24 EST Tila Torrez R.N. lorazepam 1 mg tablet -- 10:47 08/26/24 EST Tila Torrez R.N. lurasidone 40 mg tablet -- 10:47 08/26/24 EST Tila Torrez R.N. Jardiance 10 mg tablet -- 10:47 08/26/24 EST Tila Torrez R.N. Aimovig Autoinjector 70 mg/mL subcutaneous auto-injector -- 10:47 08/26/24 TOMAS Torrez R.N. Allergies: Excedrin Migraine -- 10:47 08/26/24 TOMAS Torrez R.N. Neosporin ([id number]) -- 10:47 08/26/24 TOMAS Torrez R.N. latex -- 10:47 08/26/24 EST Tila Torrez R.N. azithromycin -- 10:47 08/26/24 TOMAS Torrez R.N. Problems: Stewart's Disease -- 10:47 08/26/24 TOMAS Torrez R.N. Migraine Headache -- 10:47 08/26/24 TOMAS Torrez R.N. Grave's Disease -- 10:47 08/26/24 TOMAS Torrez R.N. Diabetes Mellitus Type 2 -- 10:47 08/26/24 TOMAS Torrez R.N. Seizure -- 10:47 08/26/24 TOMAS Torrez R.N. 10:44 08/26/24. Preferred pharmacy: [facility]. -- 10:49 08/26/24 EST Tila Torrez, R.N. ADDITIONAL SURGERIES: Gallbladder Surgery -- 10:47 08/26/24 TOMAS Torrez R.N. Appendectomy -- 10:47 08/26/24 TOMAS Torrez R.N. 2 of 4 Nurse Narrative -- 10:47 08/26/24 TOMAS Torrez R.N. Total abdominal hysterectomy -- 10:47 08/26/24 TOMAS Torrez R.N. History 10:44 08/26/24. SOCIAL HX: Never smoker. No alcohol use or drug use. The patient has not traveled outside the [place] Infectious disease exposure: No infectious disease exposure. ABUSE ASSESSMENT: The patient answered yes to the question(s) Do you feel safe in your home? and no to the question(s) Are you afraid to go home?. SELF HARM ASSESSMENT: Self harm assessment was performed. The patient answered no to the question(s) Have you recently felt down, depressed, or hopeless? and Do you have thoughts of harming or killing yourself?. FALL RISK ASSESSMENT: Fall risk assessment completed. Risk factors identified include dizziness and patient history of fainting. -- 10:49 08/26/24 TOMAS Torrez R.N. Interventions 10:44 08/26/24. Advanced care plan discussed with patient. Patient does not have advanced directive. -- 10:49 08/26/24 TOMAS Torrez R.N. PHYSICAL ASSESSMENT 10:48 08/26/24. BP: 115/82 MAP: 93. HR: 88. RR: 18. O2 saturation: 99% Temperature: 97.6 F (oral). Pain level now 0/10. -- 10:50 08/26/24 TOMAS Torrez R.N. 10:51 08/26/24. To room via stretcher. Patient gowned. GENERAL / NEURO / PSYCH: Alert. Oriented X 4. Appears in no acute distress. ( Pt believes she had a seizure earlier. She isn't acting post-ictal. A Ox4). HEENT: Pupils equal, round and reactive to light. RESPIRATORY: Respirations not labored. CVS: Capillary refill less than 2 seconds. Pulses within normal limits. SKIN: Skin is warm and dry. -- 10:52 08/26/24 TOMAS Torrez R.N. NURSING PROGRESS NOTES 3 of 4 Nurse Narrative 10:56 08/26/24. One (1) unsuccessful IV access attempt in the left antecubital space. Applied bandaid. (Able to obtain rainbow set. Labeled in pt's presence Sent to lab for processing.) -- 10:56 08/26/24 TOMAS Torrez R.N. 10:57 08/26/24. Call light placed in reach. Side rails up x 2. Bed placed in lowest position. Brakes of bed on. -- 10:57 08/26/24 TOMAS Torrez R.N. 13:26 08/26/24. BP: 100/66 while lying. MAP: 77. HR: 84. RR: 16. O2 saturation: 99% -- 13:26 08/26/24 TOMAS Torrez R.N. 13:28 08/26/24. BP: 110/84 while sitting. MAP: 93. HR: 85. RR: 16. O2 saturation: 99% -- 13:28 08/26/24 TOMAS Torrez R.N. 13:30 08/26/24. BP: 113/73 while standing. MAP: 86. HR: 95. RR: 16. O2 saturation: 98% -- 13:30 08/26/24 TOMAS Torrez R.N. DISPOSITION / DISCHARGE 14:26 08/26/24. BP: 112/81 MAP: 91 mmHg. HR: 78 bpm. -- 14:36 08/26/24 TOMAS Vasquez R.N. 14:33 08/26/24. HR: 94 bpm. O2 saturation: 100%. -- 14:36 08/26/24 TOMAS Vasquez R.N. Departure time: 14:37 08/26/2024. Condition at departure: unchanged. Reviewed medication(s). Treatments reviewed. The patient was discharged home and accompanied by family. The patient left ambulatory and via private vehicle. Family member driving. -- 14:37 08/26/24 TOMAS Vasquez R.N. (Electronically signed by Tila Torrez R.N. 08/26/24 14:42:16 EST) Generated by [facility] 4 of 4 ED PHYSICIAN DISCHARGE REPORT Observed: 08/26/2024 10:39 AM Status: F Source: [facility] Discharge Instructions Discharge Summary [address] [address] [id number] 08/26/2024 Patient: JAQUELIN SZYMANSKI Sex: Female : 1995 Age: 29y Thank you for visiting [facility]. You have been evaluated today by Kevin Garcia D.O. for the following condition(s): Principal Diagnosis Syncope. Vomiting with nausea. INSTRUCTIONS Prescription Medications: cephalexin 500 mg tablet: Take 1 tablet by mouth twice a day for 3 days, dispense 6 tablet. Refills 0. Pharmacy: [id number] [id number] [place] [address]. Follow-up: Follow up with your doctor in two. Call for an appointment. You have been given the following additional information: Vomiting (Adult) Bladder Infection, Female (Adult) Patient Signature 1 of 8 Discharge Instructions Facility [facility] Date/Time General Instructions with ExitWriter [address] [address] [phone] 08/26/2024 Patient: JAQUELIN SZYMANSKI Sex: Female : 1995 Age: 29y Thank you for visiting [facility]. You have been evaluated today by Kevin Garcia D.O. for the following condition(s): Principal Diagnosis Syncope. Vomiting with nausea. INSTRUCTIONS Prescription Medications: cephalexin 500 mg tablet: Take 1 tablet by mouth twice a day for 3 days, dispense 6 tablet. Refills 0. Pharmacy: [facility] [address] [place] [address]. Follow-up: Follow up with your doctor in two. Call for an appointment. ADDITIONAL INFORMATION 2 of 8 Discharge Instructions Vomiting (Adult) Vomiting is a common symptom that may be due to different causes. These include gastroenteritis (stomach flu), food poisoning and gastritis. There are other more serious causes of vomiting which may be hard to diagnose early in the illness. Therefore, it is important to watch for the warning signs listed below. The main danger from repeated vomiting is dehydration. This is due to excess loss of water and minerals from the body. When this occurs, your body fluids must be replaced. Home care If symptoms are severe, rest at home for the next 24 hours. Because your symptoms may be from an infection, wash your hands often and well. If soap and water are not available, use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] 09/07/2021 11/18/2022 Vertigo [R42] 09/13/2021 Seizure (HCC) [R56.9] 09/13/2021 02/06/2023 Mixed anxiety depressive disorder [F41.8] 09/13/2021 Mild intermittent asthma [J45.20] 09/13/2021 Migraine variant with headache [G43.809] 09/14/2020 H/O total vaginal hysterectomy [Z90.710] 08/13/2020 Endometriosis [N80.9] 09/13/2021 delivery delivered [O82] 09/13/2021 Weakness [R53.1] 09/14/2020 Noninfective gastroenteritis and colitis, unspe*11/02/2020 Schatzki's ring [K22.2] 09/23/2021 Chronic gastritis without bleeding [K29.50] 09/23/2021 Epigastric pain [R10.13] 12/22/2021 Hypoglycemia [E16.2] 01/14/2022 Esophagitis [K20.90] 01/15/2022 Hematuria [R31.9] 01/15/2022 BOBBY positive [R76.8] 01/15/2022 Paresthesias [R20.2] 01/15/2022 Adrenal insufficiency (Stewart's disease) (HCC)*08/14/2022 SLE (systemic lupus erythematosus related syndr*08/15/2022 Prediabetes [R73.03] 08/15/2022 Other insomnia [G47.09] 08/15/2022 Hyperemesis [R11.10] 08/15/2022 OLGA (generalized anxiety disorder) [F41.1] 08/15/2022 Nausea and vomiting [R11.2] 11/18/2022 Malnutrition of mild degree (HCC) [E44.1] 11/20/2022 Elevated LFTs [R79.89] 11/20/2022 Mixed obsessional thoughts and acts [F42.2] 12/26/2022 Panic disorder with agoraphobia [F40.01] 12/26/2022 Chronic post-traumatic stress disorder (PTSD) [*12/26/2022 Major depressive disorder, recurrent episode, m*12/26/2022 Elevated liver enzymes [R74.8] 05/03/2023 Obesity, Class I, BMI 30-34.9 [E66.811] 05/12/2023 12/06/2023 Encounter Status:Closed by WALLY FARFAN on 08/19/24 CT FACIAL BONES W/O CONTRAST Observed: 1 9:11 AM Status: F Source: [place] [id number] Patient: JAQUELIN SZYMANSKI Phone#: : 1995 Age: 29 Gender: F Pt. Type: ER Account: [id number] Location: 052 Ordering: LEANDRO RIZZO Exam Date: 08/15/2024/18:11 Family Phys: KEVIN BRADLEY Charge Code: [id number] Physician: [place] Order #: [id number] Dose#: [id number] PROCEDURE: CT FACIAL BONES WITHOUT CONTRAST COMPARISON: [facility], CT, FACIAL BONES W/O CON, 01/16/2024, 14:22. INDICATIONS: Facial pain. TECHNIQUE: After obtaining the patient's consent, CT images were created without non-ionic intravenous contrast. All CT scans at this facility use dose modulation, iterative reconstruction, and/or weight based dosing when appropriate to reduce radiation dose to as low as reasonably achievable. IV CONTRAST: No IV contrast used,0.0ml TOTAL DOSE: 27.80 CTDIvol(mGy) FINDINGS: FACIAL BONES: Normal. No bony lesion or fracture SINUSES: Normal. No visible mass, significant fluid or mucosal thickening. NASAL FOSSA: Normal. No mass, fracture, or significant septal deviation. SKULL BASE: Normal. No mass or bone destruction. ORBITS: Normal. No visible mass, hematoma, edema or fracture. CAVERNOUS SINUS: Normal. Symmetric appearance with no visible lesion. SALIVARY GLANDS: Normal. The parotid and submandibular glands are unremarkable. OTHER: The patient is partially edentulous. The nasopharynx, oropharynx, and oral cavity are unremarkable. No lymphadenopathy. CONCLUSION: 1. There is no evidence of acute abnormality. There has been no interval change. Dictated by: Gretchen Espinoza MD on 08/16/2024 at 9:08 Approved by: Gretchen Espinoza MD on 08/16/2024 at 9:11 CT BRAIN W/O CONTRAST Observed: 08/16/20 9:08 AM Status: F Source: [address] [address] Patient: JAQUELIN SZYMANSKI Phone#: : 1995 Age: 29 Gender: F Pt. Type: ER Account: [id number] Location: 052 Ordering: LEANDRO RIZZO Exam Date: 08/15/2024/18:11 Family Phys: KEVIN BRADLEY Charge Code: [id number] Physician: [place] Order #: [id number] Dose#: [id number] PROCEDURE: CT BRAIN WITHOUT CONTRAST COMPARISON: [facility], CT, BRAIN W/O CON, 04/11/2024, 16:39. INDICATIONS: Headache. TECHNIQUE: CT images were obtained without contrast material. All CT scans at this facility use dose modulation, iterative reconstruction, and/or weight based dosing when appropriate to reduce radiation dose to as low as reasonably achievable. IV CONTRAST: No IV contrast used,0.0ml TOTAL DOSE: 52.30 CTDIvol(mGy) FINDINGS: CEREBRUM: No edema, hemorrhage, mass, acute infarction, or inappropriate atrophy. CEREBELLUM: No edema, hemorrhage, mass, acute infarction, or inappropriate atrophy. BRAINSTEM: No edema, hemorrhage, mass, acute infarction, or inappropriate atrophy. CSF SPACES: Ventricles, cisterns, and sulci are appropriate for age. No hydrocephalus, subarachnoid hemorrhage, or mass. SKULL: No mass or other significant visible lesion. SINUSES: Limited views demonstrate no significant mucosal thickening or fluid. ORBITS: Limited views are unremarkable. OTHER: Negative. CONCLUSION: 1. There is no evidence of acute intracranial abnormality. There has been no interval change since prior exam. Dictated by: Gretchen Espinoza MD on 08/16/2024 at 9:06 Approved by: Gretchen Espinoza MD on 08/16/2024 at 9:08 [facility] Observed: 08/16/2024 12:00 AM Status: COMPLETED Source: [facility] Telephone (FAMPWS) JAQUELIN SZYMANSKI ([id number]) 1995 F Date Time Provider Department 08/16/24 KEVIN BRADLEY During your visit today, we recorded the following information about you: Hayde Garsia LPN 08/16/2024 12:17 PM Signed Patient calling, states she went to the [facility] ER last night for a migraine. She has been having trouble getting her migraine medication due to prior authorizations. States while at the ER they gave her morphine and sent her home with oxycodone which she has taken 1/2 a tablet of today and has not really helped. She states that her whole face hurts which is not typical with her migraines and wondering if she should be concerned. She will be able to pick and shovel man her migraine medication tomorrow. Asking if PCP would recommend she do anything different. Please advise. Kevin [place] MD 08/16/2024 1:32 PM Signed That is as strong a med as she can get. Did they do ct etc in ER. If not and is worst headache of her life or neuro issues, to ER Mariluz Goldman LPN 08/16/2024 2:11 PM Signed Behind eyes hurts so bad she can't even move her eyes. Eletriptin is approved but out of stock so will probably be tomorrow before she gets it. Did get some relief last night but back to terrible pain today. Has been a couple of months without her preventative shot. Knows that may need to go back to ER. Allergies As of Date: 08/16/2024 Noted Allergy Reaction PREDNISONE 12/23/2015 10 - Anaphylaxis Comments: Had at the same time as Brisa - unsure which caused the anaphylaxis [id number] 02/27/2017 10 - Anaphylaxis EXCEDRIN (ACETAMINOPHEN-CAFFEINE) 06/05/2013 7 - Swelling Comments: Mouth, can take tylenol LATEX 07/08/2014 2 - Rash 4 - Hives Comments: at site NEOSPORIN ([id number]*04/21/2014 4 - Hives VOLTAREN (DICLOFENAC SODIUM) 09/29/2014 14 - Other: See Comments Comments: Nausea ZITHROMAX (AZITHROMYCIN) 07/30/2014 10 - Anaphylaxis Comments: Hospitalized on 07/03/14 for this Date Reviewed: 05/22/2024 Reviewed by: Mounika Begum MA - Fully Assessed Reason for Visit: Patient Update [1234] Prescriptions as of 08/16/2024 - atorvastatin (LIPITOR) 10 mg tablet Take 1 tablet by mouth once daily. - clomiPRAMINE (ANAFRANIL) 50 mg capsule Take 2 capsules by mouth daily at bedtime AND 2 capsules every morning. - lurasidone (LATUDA) 40 mg tablet Take 1 tablet by mouth daily with dinner. Take with 300 calories. - LORazepam (ATIVAN) 1 mg tablet Take 1 tablet by mouth two times a day for 60 days. - pantoprazole DR (PROTONIX) 40 mg tablet Take 1 tablet by mouth daily at 6 am. - sucralfate (CARAFATE) 100 mg/mL suspension Take 10 mL by mouth before meals and at bedtime. (560cc=2wks) - ondansetron orally disintegrating (ZOFRAN ODT) 4 mg disintegrating tablet Take 1 tablet by mouth every 6 hours as needed for nausea/vomiting. - empagliflozin (JARDIANCE) 10 mg tablet Take 1 tablet by mouth daily with breakfast. - tirzepatide (MOUNJARO) 2.5 mg/0.5 mL pen injector Inject 2.5 mg subcutaneously one time a week. - eletriptan (RELPAX) 40 mg tablet At migraine onset. may repeat in 2 hours if necessary - erenumab-aooe 70 mg/mL subcutaneous auto-injector (AIMOVIG) Inject 1 mL subcutaneously once every month. Do not shake. - Blood-Glucose Sensor (FREESTYLE CECILY 3 SENSOR) eliseo 1 Each every 2 weeks. - topiramate (TOPAMAX) 25 mg tablet Take 1 tablet by mouth daily at bedtime. - levothyroxine (SYNTHROID) 125 mcg tablet take 1 tablet by mouth once daily. - fludrocortisone (FLORINEF) 0.1 mg tablet Take 1 tablet by mouth once daily. - tiZANidine HCl (ZANAFLEX) 4 mg capsule Take 1 capsule by mouth three times daily as needed. Hold flexeril while on meds - dexAMETHasone (DECADRON) 0.5 mg tablet Take 1 tablet by mouth every 6 hours. - promethazine (PHENERGAN) 25 mg tablet Take 1 tablet by mouth every 6 hours as needed for nausea/vomiting. - albuterol HFA (PROAIR HFA) 90 mcg/actuation inhaler Inhale 2 Puffs as instructed every 4 hours as needed for wheezing/shortness of breath. - Syringe with Needle, Disp, (BD TUBERCULIN SYRINGE) 1 mL 27 x 1/2 1 Each three times daily. - Food Supplement, Lactose-Free (NUTRITIONAL DRINK) liqd Take 237 mL by mouth three times daily with meals. - Blood-Glucose Meter Use to check blood sugar 3-4 times daily. - Lancets lancets Use as instructed - blood sugar diagnostic (BLOOD GLUCOSE TEST) test strip Use as instructed - acetaminophen (TYLENOL) 500 mg tablet 2 tablets by ORAL/FEEDING TUBE route every 8 hours as needed for pain. - alcohol swabs 3x/d - glucagon (GVOKE HYPOPEN 2-PACK) 1 mg/0.2 mL AutoInjector Inject 1 mg subcutaneously as needed. - albuterol (PROVENTIL) 2.5 mg /3 mL (0.083 %) nebulizer solution Use 3 mL via nebulizer every 4 hours as needed for wheezing/shortness of breath. Use over 5-15minutes. 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] 09/07/2021 11/18/2022 Vertigo [R42] 09/13/2021 Seizure (HCC) [R56.9] 09/13/2021 02/06/2023 Mixed anxiety depressive disorder [F41.8] 09/13/2021 Mild intermittent asthma [J45.20] 09/13/2021 Migraine variant with headache [G43.809] 09/14/2020 H/O total vaginal hysterectomy [Z90.710] 08/13/2020 Endometriosis [N80.9] 09/13/2021 delivery delivered [O82] 09/13/2021 Weakness [R53.1] 09/14/2020 Noninfective gastroenteritis and colitis, unspe*11/02/2020 Schatzki's ring [K22.2] 09/23/2021 Chronic gastritis without bleeding [K29.50] 09/23/2021 Epigastric pain [R10.13] 12/22/2021 Hypoglycemia [E16.2] 01/14/2022 Esophagitis [K20.90] 01/15/2022 Hematuria [R31.9] 01/15/2022 BOBBY positive [R76.8] 01/15/2022 Paresthesias [R20.2] 01/15/2022 Adrenal insufficiency (Stewart's disease) (HCC)*08/14/2022 SLE (systemic lupus erythematosus related syndr*08/15/2022 Prediabetes [R73.03] 08/15/2022 Other insomnia [G47.09] 08/15/2022 Hyperemesis [R11.10] 08/15/2022 OLGA (generalized anxiety disorder) [F41.1] 08/15/2022 Nausea and vomiting [R11.2] 11/18/2022 Malnutrition of mild degree (HCC) [E44.1] 11/20/2022 Elevated LFTs [R79.89] 11/20/2022 Mixed obsessional thoughts and acts [F42.2] 12/26/2022 Panic disorder with agoraphobia [F40.01] 12/26/2022 Chronic post-traumatic stress disorder (PTSD) [*12/26/2022 Major depressive disorder, recurrent episode, m*12/26/2022 Elevated liver enzymes [R74.8] 05/03/2023 Obesity, Class I, BMI 30-34.9 [E66.811] 05/12/2023 12/06/2023 Encounter Status:Closed by MARILUZ GOLDMAN on 08/16/24 CBC + DIFF Collected: 4 5:51 PM Status: F Source: [facility] TYPE CODE TESTS RESULT OUT OF RANGE REFERENCE UNITS LAB CBC + DIFF(LOINC) CBC + DIFF Result Comment: CBC-COMPLETE BLOOD COUNT LAB WBC(LOINC) WBC 8.6 4.5 - 10.8 x 10EE3/UL LAB RBC(LOINC) RBC 5.38 High 4.10 - 5.30 x 10EE6/UL LAB HEMOGLOBIN(KARMA NC) HEMOGLOBIN 12.9 12.0 - 16.0 g/dl LAB HEMATOCRIT(KARMA NC) HEMATOCRIT 40.8 34.0 - 46.0 % LAB MCV(LOINC) MCV 76 Low 80 - 99 fl LAB MCH(LOINC) MCH 24 Low 27 - 33 pg LAB MCHC(LOINC) MCHC 32 32 - 36 X10 3 LAB RDW/CV(LOINC) RDW/CV 17.5 High 12.0 - 15.6 % LAB PLATELET(LOINC ) PLATELET 365 150 - 450 x10EE3/UL LAB MPV(LOINC) MPV 7.9 6.6 - 10.5 fl Result Comment: AUTOMATED DI FFERENTIAL LAB NEUT %(LOINC) NEUT % 57.7 46.0 - 76.0 % LAB LYMPH %(LOINC) LYMPH % 33.8 20.0 - 45.0 % LAB MONOS %(LOINC) MONOS % 7.7 0.0 - 10.0 % LAB EO %(LOINC) EO % 0.7 0.0 - 7.0 % LAB BASO %(LOINC) BASO % 0.2 0.0 - 2.0 % LAB Lymph #(LOINC) Lymph # 2.89 High 0.80 - 2.80 x10EE 3/UL LAB Neut #(LOINC) Neut # 4.94 1.50 - 7.10 x10EE3 /UL LAB Cannon #(LOINC) Cannon # 0.66 0.20 - 1.00 x10EE3 /UL LAB EO #(LOINC) EO # 0.06 0.00 - 0.50 x10EE3/U L LAB Baso #(LOINC) Baso # 0.02 0.00 - 0.10 x10EE3 /UL LAB MANUAL DIFF(LOINC) MANUAL DIFF N/A LAB MORPHOLOGY(KARMA NC) MORPHOLOGY N/A Performed By: #### [id number] ## ## [facility],[address] [place] [address] CMP WITH EGFR Collected: 4 5:51 PM Status: F Source: [facility] TYPE CODE TESTS RESULT OUT OF RANGE REFERENCE UNITS LAB CMP with eGFR(LOINC) CMP with eGFR Result Comment: COMPREHENSIV E METABOLIC PANEL LAB SODIUM(LOINC) SODIUM 139 136 - 145 mmol/l LAB POTASSIUM(LOIN C) POTASSIUM 3.6 3.5 - 5.1 mmol/L LAB CHLORIDE(LOINC ) CHLORIDE 102 98 - 107 mmol/L LAB CO2(LOINC) CO2 27.1 21.0 - 32.0 mmol/L LAB GLUCOSE(LOINC) GLUCOSE 84 74 - 106 mg/dl LAB BUN(LOINC) BUN 13 7 - 18 mg/dl LAB CREATININE(KARMA NC) CREATININE 1.10 High 0.55 - 1.02 mg/dl LAB AST/SGOT(LOINC ) AST/SGOT 19 13 - 39 U/L LAB ALK PHOS(LOINC) ALK PHOS 120 High 46 - 116 U/L LAB CALCIUM(LOINC) CALCIUM 9.1 8.5 - 10.1 mg/dl LAB TOTAL PROTEIN(LOINC) TOTAL PROTEIN 8.1 6.4 - 8.2 g/dl LAB ALBUMIN(LOINC) ALBUMIN 3.6 3.4 - 5.0 g/dL LAB GLOBULIN(LOINC ) GLOBULIN 4.5 High 1.5 - 3.8 G/DL LAB A/G RATIO(LOINC) A/G RATIO 0.8 Low 0.9 - 1.6 LAB TOTAL BILI(LOINC) TOTAL BILI 0.9 0.2 - 1.0 mg/dl LAB B/C RATIO(LOINC) B/C RATIO 12 0 - 30 ratio LAB ALT/SGPT(LOINC ) ALT/SGPT 31 16 - 63 U/L LAB ANION GAP(LOINC) ANION GAP 14 10 - 20 mmol/L LAB AGE(LOINC) AGE 29 years LAB eGFR(LOINC) eGFR 58 Low 60 - 999 ML/MINUT E LAB eGFR(AA)(LOINC ) eGFR(AA) >60 60 - 999 ML/MINUT E Result Comment: ACCORDING TO THE NATIONAL KIDNEY DISEASE EDUCATION PROGRAM(NKDE), A NORMAL eGFR IS A VALUE GREATER THAN OR EQUAL TO 60 ML/MIN/1.73 SQ METERS. CHRONIC KIDNEY DISEASE: <60mL/MIN/1.73 SQ METERS KIDNEY FAILURE: <15mL/MIN/1.73 SQ METERS THIS TEST SHOULD ONLY BE USED FOR PATIENTS 18 YEARS OF AGE AND OLDER. Performed By: #### [id number] ## ## [facility],[address] [place] [id number] ED MED ADMINISTRATION DETAIL Observed: 1 4:40 PM Status: F Source: [facility] Banquet Stewardess Medication Administration Record [address] [place] [address] [id number] 08/15/2024 Patient: JAQUELIN SZYMANSKI Sex: Female : 1995 Age: 29y MEASUREMENTS: Wt: 88.0 kg, Ht/Osmar: 65.0 in, BMI: 32.28 ALLERGIES: Excedrin Migraine, Neosporin ([id number]), azithromycin, latex Medication Ordered Medication Administration Date/Time IV NS 0.9 % 1000 17:56 08/15 IV NS 0.9 % 1000 mL started in bag#1 1000 mL at Started mL at 999 mL/hr 999 mL/hr via Site# 1. - 17:56 Stephanie Samuel R.N. 17:56 08/15/2024 (NOW x1) Stephanie Samuel R.N. 19:11 08/15 Medication Discontinued: IV infused. Total amount Stopped infused: 1000 mL. - 19:11 Stephanie Samuel R.N. 19:11 08/15/2024 Stephanie Samuel R.N. Scanned MORPHine IVP 4 17:55 08/15 MORPHine IVP 2 mg given over 2 minute(s) via Site# Given mg (NOW x1, HIGH 1. - 17:55 Stephanie Samuel R.N. 17:55 08/15/2024 ALERT Stephanie Samuel R.N. MEDICATION) 19:11 08/15 Medication Response: No adverse reaction. - 19:11 Scanned Stephanie Samuel R.N. Ondansetron IVP 4 17:56 08/15 Ondansetron IVP 4 mg given over 2 minute(s) via Given mg (NOW x1) Site# 1. - 17:57 Stephanie Samuel R.N. 17:56 08/15/2024 Stephanie Samuel R.N. 19:11 08/15 Medication Response: No adverse reaction. - 19:11 Scanned Stephanie Samuel R.N. 1 of 2 Banquet Stewardess Medication Ordered Medication Administration Date/Time MORPHine IVP 6 19:07 08/15 MORPHine IVP 6 mg given over 2 minute(s) via Site# Given mg (NOW x1, HIGH 1. - 19:08 Angelique GuevaraNKaye 19:07 08/15/2024 ALERT Stephanie Samuel R.N. MEDICATION) Scanned MethylPREDNISolo 19:07 08/15 MethylPREDNISolone Sodium Succ (Solu-Medrol) IVP Given ne Sodium Succ 125 mg given over 2 minute(s) via Site# 1. - 19:07 Stephanie Samuel, 19:07 08/15/2024 (Solu-Medrol) IVP R.N. Stephanie Samuel R.N. 125 mg (NOW x1) Scanned 2 of 2 ED VISIT SUMMARY Observed: 08/15/2024 4:40 PM Status: F Source: [facility] Visit Overview Visit Overview [address] [address] [id number] 08/15/2024 Patient: JAQUELIN SZYMANSKI Sex: Female : 1995 Age: 29y 08/15/2024 07:48 PM EDT ED Arrival:16:40 08/15/2024 EDT Status:not Recent Travel:no Language:eng Adv Directive: Isolation Status: Ethnicity:N Fall Risk:no risk Infectious Disease Exposure:no Measurements:5'5 / 165.1 Self-Harm Status:risk Sepsis Screen:negative cm 194.0 lb / 88.0 kg Chief Complaint:FACIAL PAIN and MIGRAINE HEADACHE ALLERGIES azithromycin Excedrin Migraine latex Neosporin (ebt-eks-yumll) HOME MEDICATIONS Unable To Obtain PAST MEDICAL HISTORY / PROBLEMS 1 of 3 Visit Overview Stewart's Disease Diabetes Mellitus Type 2 Grave's Disease Migraine Headache See nurses notes Seizure PAST SURGICAL HISTORY Appendectomy Gallbladder Surgery Total abdominal hysterectomy SOCIAL HISTORY Smoking status: No Alcohol use: No Drug use: No ED COURSE MEDICATIONS GIVEN IN EMERGENCY DEPARTMENT 17:55 08/15/24 MORPHine IVP 2 mg over 2 minute(s) 17:56 08/15/24 IV NS 0.9 % 1000 mL 999 mL/hr 17:56 08/15/24 Ondansetron IVP 4 mg over 2 minute(s) 19:07 08/15/24 MethylPREDNISolone Sodium Succ (Solu-Medrol) IVP 125 mg over 2 minute(s) 19:07 08/15/24 MORPHine IVP 6 mg over 2 minute(s) IV SITE INFORMATION INTAKE OUTPUT REASSESMENT (most recent) 2 of 3 Visit Overview 18:27 08/15/24. Oxygen not administered. Monitoring of patient in place. No cold pack applied. Patient gowned. Head of bed elevated 45 degrees. Reassurance given. Lights dimmed. GENERAL / NEURO / PSYCH: The patient reports headache is still present but improving and is currently mild in severity. Alert. Oriented X 4. HEENT: The patient reports eye pain is still present but improving and is currently mild in severity. The patient reports neck pain is still present but improving. Pupils equal, round and reactive to light. RESPIRATORY: No respiratory distress. SKIN: Skin is warm. Skin color within normal limits. Two patient identifiers checked. Call light placed in reach. Side rails up x 2. Bed placed in lowest position. Brakes of bed on. VITAL SIGNS First Vitals Last Vitals Temp 16:46 08/15/24 Temp 19:23 08/15/24 BP 16:46 08/15/24 117/85 BP 19:23 08/15/24 HR 16:46 08/15/24 91 HR 19:23 08/15/24 98 RR 16:46 08/15/24 RR 19:23 08/15/24 O2 Sat 16:46 08/15/24 O2 Sat 19:23 08/15/24 93% Pain 16:46 08/15/24 Pain 19:23 08/15/24 ETCO2 16:46 08/15/24 ETCO2 19:23 08/15/24 GCS 16:46 08/15/24 GCS 19:23 08/15/24 RTS 16:46 08/15/24 RTS 19:23 08/15/24 PROCEDURES NURSING INTERVENTIONS LABS / STUDIES LABS / STUDIES ORDERED CBC w Diff CMP CT Brain wo IV Cont CT Facial wo IV Cont CLINICAL IMPRESSION ACUTE NONTRAUMATIC PAIN IN THE HEAD AND FACE 3 of 3 ED PHYS CODING ABST SUMMARY Observed: 4:40 PM Status: F Source: [facility] Coding Summary Coding Summary [facility] [address] [place] [address] [id number] 08/15/2024 Patient: JAQUELIN SZYMANSKI Sex: Female : 1995 Age: 29y ICD-10 Codes R51: Headache This is a partial abstract of information documented in the full record. Singer [employer] Un[employer] must use independent judgment in selecting codes. CPT copyright 2022 [employer]. All Rights Reserved. 1 of 1 ED FACILITY CODING SUMMARY Observed: 4:40 PM Status: F Source: [facility] Facility Coding Facility Coding Summary [address] [place] [address] [id number] 08/15/2024 Patient: JAQUELIN SZYMANSKI Sex: Female : 1995 Age: 29y Providers: Leandro Rizzo M.D. DIAGNOSTIC WORKUP Chief Complaint SWELLING OF JAW / FACE facial pain. -- Leandro Rizzo M.D. Principal Diagnosis Acute nontraumatic pain in the head and face. -- Leandro Rizzo M.D. ICD-10 Codes R51: Headache PROCEDURES Procedures from Providers: Procedures from Nurses/Facility: IV Hydration (CPT: 99555) IV Push MORPHine IVP (CPT: 24562) IV Push MethylPREDNISolone Sodium Succ (Solu-Medrol) IVP (CPT: 14181) IV Push Ondansetron IVP (CPT: 55817) IV Push MORPHine IVP (CPT: 50831) SUPPLIES 1 of 2 Facility Coding ELEVEL 87984-52 This is a partial abstract of information documented in the full record. Singer [employer]loader must use independent judgment in selecting codes. CPT copyright 2022 [employer]. All Rights Reserved. 2 of 2 ED PHYSICIAN CLINICAL REPORT Observed: 1 4:40 PM Status: F Source: [facility] Narrative Physician Clinical Narrative [facility] [address] [place] [address] [id number] 08/15/2024 Patient: JAQUELIN SZYMANSKI Sex: Female : 1995 Age: 29y Disposition: Discharge to Home Disposition Decision Time: 19:09 08/15/2024 Measurements Wt: 88.0 kg, Ht/Osmar: 65.0 in, BMI: 32.28 Initial Vital Sign Measured Time BP MAP HR RR O2Sat ETCO2 Temp Pain GCS RTS 16:46 08/15/2024 117/85 94 91 Time Seen: 17:31 08/15/2024. Arrived- By private vehicle. Historian- patient. HISTORY OF PRESENT ILLNESS Chief Complaint: SWELLING OF JAW / FACE facial pain. This started 2 days ago and is still present. Pain described as moderate. The patient has had a sore throat, swelling of the jaw and face, jaw pain and facial pain. The patient has had ear pain. No mouth sores, nasal discharge or congestion or toothache. Similar symptoms previously. None. REVIEW OF SYSTEMS EYES: The patient has had moderate eye discomfort (retro orbital) involving the left eye with pain. No burning eye discomfort, foreign body sensation or photophobia. CONSTITUTIONAL: No fever. Status: Not . 1 of 8 Narrative PAST HISTORY See nurses notes. seen freq in ED for abd pain. Davonte's Disease Diabetes Mellitus Type 2 Grave's Disease Migraine Headache Seizure Surgeries: Appendectomy Gallbladder Surgery Total abdominal hysterectomy Medications: unable to obtain home medications Allergies: azithromycin Excedrin Migraine latex Neosporin (hdk-xxt-ieuuk) SOCIAL HISTORY Does not use tobacco. Resides in a house. Marital status: . ADDITIONAL NOTES The nursing notes have been reviewed. PHYSICAL EXAM Vital Signs: Have been reviewed. Appearance: Anxious. Patient in mild distress. Head: Normal external inspection. No facial erythema. No tenderness to palpation/percussion over the 2 of 8 Narrative sinuses, mandibular swelling or maxillary swelling. Eyes: Pupils equal, round and reactive to light. No conjunctival findings. ENT: Ears normal. Nose normal. Pharynx normal. Lips normal. Gums normal. No trismus present. Uvula midline. No tonsillar exudate, peritonsillar mass, muffled or hoarse voice or drooling. No dental decay or tenderness. The mucous membranes are not dry. Neck: Trachea midline. No adenopathy. Thyroid normal. CVS: Normal heart rate. Heart sounds normal. Pulses normal. Respiratory: No respiratory distress. Breath sounds normal. Chest nontender. Abdomen: Soft. Skin: Normal skin color. No rash. Extremities: Extremities exhibit normal ROM. Extremities nontender. LABS, X-RAYS, AND EKG CT Face: No acute disease. CT Head: No acute disease. Laboratory Tests: CBC + DIFF Final LENORA: 08/15/2024 17:51:00 EDT MsgRcvd: 08/15/2024 18:31 EDT Lab Test Result Reference Status Received Comments 08/15/2024 18:31 CBC-COMPLETE CBC + DIFF Final EDT BLOOD COUNT 08/15/2024 18:31 WBC 8.6 x 10/UL 4.5 - 10.8 Final EDT 5.38 x 10/UL 08/15/2024 18:31 RBC 4.10 - 5.30 Final Above high normal EDT 08/15/2024 18:31 HEMOGLOBIN 12.9 g/dl 12.0 - 16.0 Final EDT 08/15/2024 18:31 HEMATOCRIT 40.8 % 34.0 - 46.0 Final EDT 3 of 8 Narrative 76 fl 08/15/2024 18:31 MCV 80 - 99 Final Below low normal EDT 24 pg 08/15/2024 18:31 MCH 27 - 33 Final Below low normal EDT 08/15/2024 18:31 MCHC 32 X10 3 32 - 36 Final EDT 17.5 % 08/15/2024 18:31 RDW/CV 12.0 - 15.6 Final Above high normal EDT 08/15/2024 18:31 PLATELET 365 x10/UL 150 - 450 Final EDT 08/15/2024 18:31 AUTOMATED MPV 7.9 fl 6.6 - 10.5 Final EDT DIFFERENTIAL 08/15/2024 18:31 NEUT % 57.7 % 46.0 - 76.0 Final EDT 08/15/2024 18:31 LYMPH % 33.8 % 20.0 - 45.0 Final EDT 08/15/2024 18:31 MONOS % 7.7 % 0.0 - 10.0 Final EDT 08/15/2024 18:31 EO % 0.7 % 0.0 - 7.0 Final EDT 08/15/2024 18:31 BASO % 0.2 % 0.0 - 2.0 Final EDT 2.89 x10/UL 08/15/2024 18:31 Lymph # 0.80 - 2.80 Final Above high normal EDT 08/15/2024 18:31 Neut # 4.94 x10/UL 1.50 - 7.10 Final EDT 08/15/2024 18:31 Cannon # 0.66 x10/UL 0.20 - 1.00 Final EDT 4 of 8 Narrative 08/15/2024 18:31 EO # 0.06 x10/UL 0.00 - 0.50 Final EDT 08/15/2024 18:31 Baso # 0.02 x10/UL 0.00 - 0.10 Final EDT 08/15/2024 18:31 MANUAL DIFF N/A New Order EDT 08/15/2024 18:31 MORPHOLOGY N/A New Order EDT CMP with eGFR Final LENORA: 08/15/2024 17:51:00 EDT MsgRcvd: 08/15/2024 18:35 EDT Lab Test Result Reference Status Received Comments COMPREHENSIVE 08/15/2024 CMP with eGFR Final METABOLIC 18:35 EDT PANEL 08/15/2024 SODIUM 139 mmol/l 136 - 145 Final 18:35 EDT 08/15/2024 POTASSIUM 3.6 mmol/L 3.5 - 5.1 Final 18:35 EDT 08/15/2024 CHLORIDE 102 mmol/L 98 - 107 Final 18:35 EDT 08/15/2024 CO2 27.1 mmol/L 21.0 - 32.0 Final 18:35 EDT 08/15/2024 GLUCOSE 84 mg/dl 74 - 106 Final 18:35 EDT 08/15/2024 BUN 13 mg/dl 7 - 18 Final 18:35 EDT 5 of 8 Narrative 1.10 mg/dl 08/15/2024 CREATININE Above high 0.55 - 1.02 Final 18:35 EDT normal 08/15/2024 AST/SGOT 19 U/L 13 - 39 Final 18:35 EDT 120 U/L 08/15/2024 ALK PHOS Above high 46 - 116 Final 18:35 EDT normal 08/15/2024 CALCIUM 9.1 mg/dl 8.5 - 10.1 Final 18:35 EDT TOTAL 08/15/2024 8.1 g/dl 6.4 - 8.2 Final PROTEIN 18:35 EDT 08/15/2024 ALBUMIN 3.6 g/dL 3.4 - 5.0 Final 18:35 EDT 4.5 G/DL 08/15/2024 GLOBULIN Above high 1.5 - 3.8 Final 18:35 EDT normal 0.8 08/15/2024 A/G RATIO 0.9 - 1.6 Final Below low normal 18:35 EDT 08/15/2024 TOTAL BILI 0.9 mg/dl 0.2 - 1.0 Final 18:35 EDT 08/15/2024 B/C RATIO 12 ratio 0 - 30 Final 18:35 EDT 08/15/2024 ALT/SGPT 31 U/L 16 - 63 Final 18:35 EDT 08/15/2024 ANION GAP 14 mmol/L 10 - 20 Final 18:35 EDT 08/15/2024 AGE 29 years Final 18:35 EDT 6 of 8 Narrative 58 ML/MINUTE 08/15/2024 eGFR 60 - 999 Final Below low normal 18:35 EDT ACCORDING TO THE NATIONAL KIDNEY DISEASE EDUCATION PROGRAM(NKDE), A NORMAL eGFR IS A VALUE GREATER THAN OR EQUAL TO 60 ML/MIN/1.73 SQ METERS. 08/15/2024 CHRONIC KIDNEY eGFR(AA) >60 ML/MINUTE 60 - 999 Final 18:35 EDT DISEASE: <60mL/MIN/1.73 SQ METERS KIDNEY FAILURE: <15mL/MIN/1.73 SQ METERS THIS TEST SHOULD ONLY BE USED FOR PATIENTS 18 YEARS OF AGE AND OLDER. PROGRESS AND PROCEDURES Differential Diagnosis: I considered migraine, cluster headache, cerebral venous thrombosis and trigeminal neuralgia as a possible cause of headache in this patient. This is a partial list of diagnoses considered. MEDICAL DECISION MAKING: No significant abnormalities were noted on the tests reviewed. MEDICAL COMPLEXITY MODERATE. Serious conditions are unlikely to be a cause for the patient's findings. The 7 of 8 Narrative diagnosis appears to be less serious in nature. Disposition: Condition: stable. Discharged in stable condition. Discharge decision based on the following: patient's condition is stable; patient's exam is stable; no abnormal test results. CLINICAL IMPRESSION Acute nontraumatic pain in the head and face. possible atypical igraine. DISCHARGE INSTRUCTIONS No strenuous activity. Rest today. Warnings: GENERAL WARNINGS: Return or contact your physician immediately if your condition worsens or changes unexpectedly, if not improving as expected, or if other problems arise. Prescription Medications: Medications prescribed: Percocet ([facility] [employer]). Percocet 5 mg-325 mg tablet: 1 tablet by mouth three times a day, dispense 6 tablet. Refills 0. Pharmacy: [id number] [address] [place] [address]. Phone: Follow-up: Follow up with your doctor tomorrow if not better. (Electronically signed by Leandro Rizzo M.D. 08/15/24 19:33:22 EDT) Generated by [facility] 8 of 8 ED SUPER BILL Observed: 08/15/2024 4:40 PM Status: F Source: [address] [place] [address] [id number] 08/15/2024 Patient: JAQUELIN SZYMANSKI Sex: Female : 1995 Age: 29y Item Facility Professional Category Description Code Code Quantity Fee Total Nurse/E/M EMERGENCY 512036 1 $0.00 $0.00 DEPARTMENT VISIT HIGH/URGENT SEVERITY (80759-69) Nurse/IV/IM/Infusions Hydration 980379 1 $0.00 $0.00 additional hour (65498) Nurse/IV/IM/Infusions IVP additional 311970 2 $0.00 $0.00 push (72600) Nurse/IV/IM/Infusions IVP initial 471523 1 $0.00 $0.00 (36457) Nurse/IV/IM/Infusions IVP same med 378611 1 $0.00 $0.00 (31 min apart) (22087) Grand Total $0.00 Providers Leandro Rizzo M.D. 1 of 2 [facility] Chief Complaint SWELLING OF JAW / FACE facial pain. Principal Diagnosis Acute nontraumatic pain in the head and face. ICD-10 Codes R51: Headache 2 of 2 ED PHYSICIAN DISCHARGE REPORT Observed: 08/15/2024 4:40 PM Status: F Source: [facility] Discharge Instructions Discharge Summary [address] [place] [address] [id number] 08/15/2024 Patient: JAQUELIN SZYMANSKI Sex: Female : 1995 Age: 29y Thank you for visiting [facility]. You have been evaluated today by Leandro Rizzo M.D. for the following condition(s): Principal Diagnosis Acute nontraumatic pain in the head and face. INSTRUCTIONS No strenuous activity. Rest today. Warnings: GENERAL WARNINGS: Return or contact your physician immediately if your condition worsens or changes unexpectedly, if not improving as expected, or if other problems arise. Prescription Medications: Medications prescribed: Percocet ([facility] [employer] [employer] [facility]). Percocet 5 mg-325 mg tablet: 1 tablet by mouth three times a day, dispense 6 tablet. Refills 0. Pharmacy: [id number] - [address] [place] [address]. Phone: Follow-up: Follow up with your doctor tomorrow if not better. You have been given the following additional information: Acute Pain, Uncertain Cause 1 of 4 Discharge Instructions Patient Signature Facility [facility] [place] Date/Time General Instructions with ExitWriter [address] [address] [id number] 08/15/2024 Patient: JAQUELIN SZYMANSKI Sex: Female : 1995 Age: 29y Thank you for visiting [facility]. You have been evaluated today by Leandro Rizzo M.D. for the following condition(s): Principal Diagnosis Acute nontraumatic pain in the head and face. INSTRUCTIONS No strenuous activity. Rest today. Warnings: GENERAL WARNINGS: Return or contact your physician immediately if your condition worsens or changes unexpectedly, if not improving as expected, or if other problems arise. Prescription Medications: Medications prescribed: Percocet ([facility] [place]). Percocet 5 mg-325 mg tablet: 1 tablet by mouth three times a day, dispense 6 tablet. Refills 0. Pharmacy: [id number] - [address] [place] [address]. Phone: 2 of 4 Discharge Instructions Follow-up: Follow up with your doctor tomorrow if not better. ADDITIONAL INFORMATION Acute Pain, Uncertain Cause Pain can be caused by many conditions that range from very minor to very serious. In some cases, though, pain comes and goes with no apparent cause. We were not able to find the exact cause for your pain. At this time there is no sign of any serious illness causing your pain. More tests may be needed to determine the cause. In many cases, pain like this goes away by itself. Home care Take any medicines as prescribed. If another medicine was not prescribed for pain, you can take an gsog-esf-nbkcbex pain medicine such as ibuprofen or acetaminophen. Use these as directed on the label. Follow-up care Follow up with your healthcare provider or our staff as directed. When to seek medical advice Call your healthcare provider for any of the following: Pain changes in pattern Pain doesn't lessen or gets worse New symptoms appear Fever of 100.4F (38C) or higher, or as directed by your healthcare provider Activities [address] [place] [address] [phone] 3 of 4 Discharge Instructions 08/15/2024 Patient: JAQUELIN SZYMANSKI Sex: Female : 1995 Age: 29y You have been given the following instructions regarding activity, work, and/or school. No strenuous activity. Rest today. Facility [facility] 4 of 4 ED NURSES CLINICAL NOTE Observed: 2023 4:40 PM Status: F Source: [facility] Nurse Narrative Nurse Clinical Narrative [address] [place] [address] [phone] 08/15/2024 Patient: JAQUELIN SZYMANSKI Sex: Female : 1995 Age: 29y Disposition: Discharge to Home Disposition Decision Time: 19:09 08/15/2024 Departure Time: 19:47 08/15/2024 TRIAGE Arrived by private vehicle. Historian: patient. ( Severe Left-sided facial pain began 2 days [employer]. Pt states that pain is worse today and that it is making her feel nauseated. Pain is excruciating behind left eye. Pt sees bright spots in visual field. Pt states it feels similar to a usual migraine but the pain is intractable even after she has taken her medication.). Triage time: 16:46 08/15/2024. This started 2 days ago. The patient has had fever, nausea and vomiting. SEPSIS SCREEN: NEGATIVE. SIRS criteria negative. No possible sources of infection. -- 16:56 08/15/24 EDT Jatinder Rodriguez E.M.T.-P. 16:46 08/15/24. BP: 117/85 MAP: 94 mmHg. HR: 91 bpm. -- 16:54 08/15/24 EDT Candelaria SebastianPKaye 16:55 08/15/24. Pain level now 10/10. Patient conversant. Describes the pain as sharp. Constant. Physician notified. It is described as radiating to the left ear and left neck. -- 16:55 08/15/24 EDT Jatinder Rodriguez E.M.T.-P. 16:55 08/15/24. Pain level now 10/10. Patient conversant. Describes the pain as sharp. Constant. Physician notified. It is described as radiating to the left ear and left neck. -- 16:57 08/15/24 EDT Jatinder Rodriguez E.M.T.-P. Chief Complaint: MIGRAINE HEADACHE and FACIAL PAIN. 16:57 08/15/24. -- 16:57 08/15/24 EDT Jatinder Rodriguez E.M.T.-P. 16:58 08/15/24. BP: 117/85 MAP: 96. HR: 88. RR: 18. O2 saturation: 100% Temperature: 97.8 F. Pain level now 08/01. -- 16:58 08/15/24 EDT Jatinder Rodriguez E.M.T.-P. Acuity: LEVEL 3. 17:06 08/15/24. -- 17:06 08/15/24 EDT Stephanie Samuel R.N. 1 of 5 Nurse Narrative Acuity: LEVEL 4. 17:23 08/15/24. -- 17:23 08/15/24 EDT Tila Torrez R.N. Measurements: 16:53 08/15/24 Wt: 88.0 kg, Ht/Osmar: 65.0 in, BMI: 32.28 -- 16:53 08/15/24 EDT Jatinder Michael, E.M.T.-P. Medications: unable to obtain home medications -- 16:53 08/15/24 EDT Candelaria SebastianP. atorvastatin 10 mg tablet -- 17:03 08/15/24 EDT Marylu Sebastian-P. levothyroxine 125 mcg tablet -- 17:03 08/15/24 EDT Candelaria SebastianPKaye topiramate 25 mg tablet: Take 1 tablet by mouth daily at bedtime. -- 17:03 08/15/24 EDT Candelaria SebastianP. dexamethasone 0.5 mg tablet: TAKE 1 TABLET BY MOUTH EVERY 6 HOURS -- 17:03 08/15/24 EDT Candelaria SebastianP. clomipramine 50 mg capsule -- 17:03 08/15/24 EDT Candelaria SebastianP. fludrocortisone 0.1 mg tablet -- 17:03 08/15/24 EDT Candelaria SebastianP. eletriptan 40 mg tablet -- 17:03 08/15/24 EDT Candelaria SebastianPKaye lorazepam 1 mg tablet: Take 1 tablet by mouth two times a day for 60 days. -- 17:03 08/15/24 EDT Candelaria SebastianP. lurasidone 40 mg tablet -- 17:03 08/15/24 EDT Candelaria SebastianP. Jardiance 10 mg tablet: Take 1 tablet by mouth daily with breakfast. -- 17:03 08/15/24 EDT Candelaria SebastianPKaye Aimovig Autoinjector 70 mg/mL subcutaneous auto-injector -- 17:03 08/15/24 EDT Candelaria SebastianP. Allergies: Excedrin Migraine -- 16:49 08/15/24 EDT Candelaria SebastianPKaye Neosporin (bkc-bxt-zaqdr) -- 16:49 08/15/24 EDT Candelaria SebastianP. latex -- 16:50 08/15/24 EDT Jatinder Rodriguez E.M.T.-P. azithromycin -- 16:50 08/15/24 EDT Jatinder Rodriguez E.M.T.-P. 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 Migraine Headache -- 16:51 08/15/24 EDT Jatinder Rodriguez E.M.T.-P. Grave's Disease -- 16:51 08/15/24 EDT Jatinder Rodriguez E.M.T.-P. Diabetes Mellitus Type 2 -- 16:51 08/15/24 EDT Jatinder Rodriguez E.M.T.-P. Seizure -- 16:51 08/15/24 EDT Jatinder Rodriguez E.M.T.-P. 2 of 5 Nurse Narrative ADDITIONAL SURGERIES: Gallbladder Surgery -- 16:51 08/15/24 EDT Jatinder Rodriguez E.M.T.-P. Appendectomy -- 16:51 08/15/24 EDT Jatinder Rodriguez E.M.T.-P. -- 16:52 08/15/24 EDT Jatinder Rodriguez E.M.T.-P. Total abdominal hysterectomy -- 16:52 08/15/24 EDT Jatinder Rodriguez E.M.T.-P. History 16:46 08/15/24. SOCIAL HX: Former smoker, end date 2016. No alcohol use or drug use. The patient has not traveled outside the [place] Infectious disease exposure: No infectious disease exposure. ABUSE ASSESSMENT: The patient answered yes to the question(s) Do you feel safe in your home? and no to the question(s) Are you afraid to go home?. SELF HARM ASSESSMENT: Self harm assessment was performed. The patient answered no to the question(s) Have you recently felt down, depressed, or hopeless? and Do you have thoughts of harming or killing yourself?. FALL RISK ASSESSMENT: Fall risk assessment completed. No risk factors identified. -- 16:56 08/15/24 EDT Jatinder Rodriguez E.M.T.-P. Interventions 16:46 08/15/24. Identification band and allergy band on patient. -- 16:56 08/15/24 EDT Jatinder Rodriguez E.M.T.-P. PHYSICAL ASSESSMENT 16:58 08/15/24. GENERAL / NEURO / PSYCH: Alert. Oriented X 4. Appears in pain. Speech within normal limits. Pupillary exam: Pupils are equal, round, and reactive to light. Right pupil 3mm, round and briskly reactive to light directly. Left pupil: 3mm, round and briskly reactive to light directly. HEENT: No facial asymmetry noted. Pupils equal, round and reactive to light. No signs of head trauma. ( LEFT FACIAL PAINPT REPORTS VISUAL DISTRUBANCE AND NECK PAIN). RESPIRATORY: Respirations not labored. Breath sounds within normal limits. CVS: No abnormal heart sounds. Capillary refill less than 2 seconds but is not greater than 2 seconds. 3 of 5 Nurse Narrative GI / : Abdomen soft and nontender. No nausea noted. No abdominal tenderness or distention. No emesis noted. SKIN: Skin is warm and dry. Skin not cool to touch. -- 16:59 08/15/24 EDT Stephanie Samuel R.N. NURSING PROGRESS NOTES 17:55 08/15/24. MORPHine IVP 2 mg given over 2 minute(s) via Site# 1. -- 17:55 08/15/24 EDT Stephanie Samuel R.N. 17:55 08/15/24. Site #1 started via IV in the right antecubital space with a 20g angiocath. -- 17:55 08/15/24 EDT Stephanie Samuel R.N. 17:56 08/15/24. IV NS 0.9 % 1000 mL started in bag#1 1000 mL at 999 mL/hr via Site# 1. -- 17:56 08/15/24 EDT Stephanie Samuel R.N. 17:56 08/15/24. Ondansetron IVP 4 mg given over 2 minute(s) via Site# 1. -- 17:57 08/15/24 EDT Stephanie Samuel R.N. 18:25 08/15/24. Patient returned. (1820). Patient waiting for CT results. -- 18:25 08/15/24 EDT Stephanie Samuel R.N. 18:27 08/15/24. Oxygen not administered. Monitoring of patient in place. No cold pack applied. Patient gowned. Head of bed elevated 45 degrees. Reassurance given. Lights dimmed. GENERAL / NEURO / PSYCH: The patient reports headache is still present but improving and is currently mild in severity. Alert. Oriented X 4. HEENT: The patient reports eye pain is still present but improving and is currently mild in severity. The patient reports neck pain is still present but improving. Pupils equal, round and reactive to light. RESPIRATORY: No respiratory distress. SKIN: Skin is warm. Skin color within normal limits. Two patient identifiers checked. Call light placed in reach. Side rails up x 2. Bed placed in lowest position. Brakes of bed on. -- 18:27 08/15/24 EDJuancarlos Samuel R.N. 19:07 08/15/24. MethylPREDNISolone Sodium Succ (Solu-Medrol) IVP 125 mg given over 2 minute(s) via Site# 1. -- 19:08/15/24 EDJuancarlos Samuel R.N. 19:07 08/15/24. MORPHine IVP 6 mg given over 2 minute(s) via Site# 1. -- 19:08 08/15/24 EDJuancarlos Samuel R.N. 19:11 08/15/24. IV NS 0.9 %: Medication Discontinued. IV infused. Total amount infused: 1000 mL. -- 19:11 08/15/24 ASIM Samuel R.N. 19:11 08/15/24. MORPHine IVP: Medication Response. No adverse reaction. -- 19:11 08/15/24 ASIM Samuel R.N. 19:11 08/15/24. Ondansetron IVP: Medication Response. No adverse reaction. -- 19:11 08/15/24 ASIM Samuel R.N. DISPOSITION / DISCHARGE 16:46 08/15/24. BP: 117/85 MAP: 94 mmHg. HR: 91 bpm. -- 19:25 08/15/24 ASIM Samuel R.N. 4 of 5 Nurse Narrative 16:53 08/15/24. HR: 92 bpm. O2 saturation: 98%. -- 19:25 08/15/24 EDT Stephanie Samuel R.N. 16:56 08/15/24. RR: 18. Temperature: 97.8 F. -- 19:25 08/15/24 EDT Stephanie Samuel R.N. 16:58 08/15/24. BP: 117/85 MAP: 96. HR: 88. RR: 18. O2 saturation: 100% Temperature: 97.8 F. Pain level now 08/01. -- 19:25 08/15/24 EDT Stephanie Samuel R.N. 16:58 08/15/24. HR: 89 bpm. O2 saturation: 99%. -- 19:25 08/15/24 EDT Jani Guevara.N. 17:00 08/15/24. BP: 116/80 MAP: 90 mmHg. HR: 85 bpm. -- 19:25 08/15/24 EDAngelique VegaNKaye 17:08 08/15/24. HR: 90 bpm. O2 saturation: 98%. -- 19:25 08/15/24 EDT Stephanie Samuel R.N. 17:15 08/15/24. BP: 115/83 MAP: 91 mmHg. HR: 87 bpm. -- 19:25 08/15/24 EDJuancarlos Samuel R.N. 17:23 08/15/24. HR: 94 bpm. O2 saturation: 98%. -- 19:25 08/15/24 EDJuancarlos Samuel R.NKaye 17:30 08/15/24. BP: 118/73 MAP: 81 mmHg. HR: 89 bpm. -- 19:25 08/15/24 EDT Stephanie Samuel R.N. 17:43 08/15/24. HR: 90 bpm. O2 saturation: 97%. -- 19:25 08/15/24 EDJuancarlos Samuel R.N. 17:45 08/15/24. BP: 113/78 MAP: 87 mmHg. HR: 87 bpm. -- 19:25 08/15/24 EDJuancarlos Samuel R.NKaye 17:58 08/15/24. HR: 93 bpm. O2 saturation: 100%. -- 19:25 08/15/24 EDT Jani Guevara.NKaye 18:00 08/15/24. BP: 124/86 MAP: 98 mmHg. HR: 89 bpm. -- 19:25 08/15/24 EDT Angelique GuevaraNKaye 18:18 08/15/24. HR: 95 bpm. O2 saturation: 97%. -- 19:25 08/15/24 EDT Jani Guevara.NKaye 18:28 08/15/24. HR: 93 bpm. O2 saturation: 97%. -- 19:25 08/15/24 EDT Jani Guevara.NKaye 18:30 08/15/24. BP: 118/84 MAP: 91 mmHg. HR: 91 bpm. -- 19:25 08/15/24 EDT Angelique GuevaraNKaye 18:33 08/15/24. HR: 94 bpm. O2 saturation: 98%. -- 19:25 08/15/24 EDT Jani Guevara.NKaye 18:53 08/15/24. HR: 82 bpm. O2 saturation: 100%. -- 19:25 08/15/24 EDT Angelique GuevaraNKaye 19:00 08/15/24. BP: 126/89 MAP: 108 mmHg. HR: 72 bpm. -- 19:25 08/15/24 EDT Jani Guevara.NKaye 19:15 08/15/24. BP: 136/84 MAP: 101 mmHg. HR: 88 bpm. -- 19:25 08/15/24 EDT Jani Guevara.NKaye 19:23 08/15/24. HR: 98 bpm. O2 saturation: 93%. -- 19:25 08/15/24 EDT Angelique GuevaraNKaye 19:24 08/15/24. Site #1 removed. Bandage, pressure dressing and manual pressure applied. (CATHETER IS INTACT BLEEDING CONTROLLED.) -- 19:24 08/15/24 EDT Jani Guevara.NKaye 19:26 08/15/24. Condition at departure: improved. Reviewed warnings. Reviewed medication(s) (PERCOCET 5/325). Reviewed referrals (F/U WITH PCP). Written instructions provided in Scottish. The patient was discharged by the physician. The patient was discharged home and accompanied by spouse. The patient left ambulatory and via private vehicle. Patient driving. -- 19:26 08/15/24 EDT Stephanie Samuel R.N. Departure time: 19:47 08/15/2024. -- 19:47 08/15/24 EDT Stephanie Samuel R.N. (Electronically signed by Stephanie Samuel R.N. 08/15/24 19:48:07 EDT) Generated by [facility] 5 of 5 ED ORDER SHEET (CPOE ONLY) Observed: 4:40 PM Status: F Source: [facility] Order Sheet Order Sheet [address] [id number] 08/15/2024 Patient: JAQUELIN SZYMANSKI Sex: Female : 1995 Age: 29y MEASUREMENTS: Wt: 88.0 kg, Ht/Osmar: 65.0 in, BMI: 32.28 ALLERGIES: Excedrin Migraine, Neosporin (tno-pgq-gdxqj), azithromycin, latex MEDICATION/IV/DRIP/FLUID ORDERS Order Description Priority Entered Acknowledged Completed IV NS 0.9 %1000 mL at 999 17:42 08/15/2024 17:53 17:56 mL/hr (NOW x1) Leandro Rizzo M.D. 08/15/2024 08/15/2024 Stephanie Guevara R.N. RKayeNKaye MORPHine IVP4 mg (NOW x1, 17:42 08/15/2024 17:53 17:55 HIGH ALERT MEDICATION) Leandro Rizzo M.D. 08/15/2024 08/15/2024 Stephanie Guevara R.N. R.N. Reason for ordering with alerts: Does not appear to be a true allergy --17:42 08/15/2024 Leandro Rizzo M.D. Ondansetron IVP4 mg (NOW x1) 17:42 08/15/2024 17:53 17:57 Leandro Rizzo M.D. 08/15/2024 08/15/2024 Stephanie Guevara R.N. R.Issac MORPHine IVP6 mg (NOW x1, 18:58 08/15/2024 19:05 19:08 HIGH ALERT MEDICATION) Leandro Rizzo M.D. 08/15/2024 08/15/2024 Stephanie Guevara, 1 of 3 Order Sheet R.N. R.N. Reason for ordering with alerts: Clinical consideration given --18:58 08/15/2024 Leandro Rizzo M.D. MethylPREDNISolone Sodium 18:58 08/15/2024 19:05 19:07 Succ (Solu-Medrol) QLO247 mg Leandro Rizzo M.D. 08/15/2024 08/15/2024 (NOW x1) Stephanie Guevara R.N. RRicky LAB ORDERS Order Description Priority Entered Acknowledged Collected Completed CBC w Diff Stat Stat 17:42 08/15/2024 17:45 08/15/2024 17:53 08/15/2024 Lyric Sierra Samuel Burgett, R.N. RRicky CMP Stat Stat 17:42 08/15/2024 17:45 08/15/2024 17:53 08/15/2024 Lyric Sierra Samuel Burgett, R.N. R.Issac DIAGNOSTIC STUDY ORDERS Order Description Priority Entered Acknowledged Completed CT Brain wo IV Cont Stat Stat 17:42 08/15/2024 17:46 18:06 Leandro Rizzo M.D. 08/15/2024 08/15/2024 Stephanie Guevara R.N. RKayeNKaye Order Comments: 17:42 08/15/2024: Status: Not . Leandro Rizzo M.D. Reason for Study: Headache CT Facial wo IV Cont Stat Stat 17:42 08/15/2024 17:46 18:23 Leandro Rizzo M.D. 08/15/2024 08/15/2024 Stephanie Guevara R.N. R.N. Order Comments: 17:42 08/15/2024: Status: Not . Leandro Rizzo M.D. Reason for Study: Facial Pain STAFF ORDERS 2 of 3 Order Sheet Order Description Priority Entered Acknowledged Collected Completed [Electronically signed by Leandro Rizzo M.D. (08/15/2024 19:33 EDT)] 3 of 3 PROGRESS Observed: 08/07/2024 9:03 AM Status: COMPLETED Source: [facility] ID: [id number] Author: KEVIN BRADLEY MD Service: ? Author Type: Physician Type: Progress Notes Filed: 08/07/2024 09:14 Note Text: Patient presents with: Acute Visit: Leg pain HPI:This visit is a virtual encounter. It required patient-provider interaction for the medical decision making as documented below. Patient has elected to have a visit through distance medicine I have communicated my name and active licensure. The patient's identity and physical location were verified at the time of this visit. Either the patient or their legal in store representative has been informed of the risks and benefits of -- and alternatives to -- treatment through a remote evaluation and consents to proceed with the evaluation remotely. Complains of leg pain for several week. Started with a muscle cramp and never went away. Happens with both legs. Has back pain that corresponds along with the leg pain. No injury. Stretching out in bed or sitting down makes it worse. Feet feel numb occasionally. No swelling or redness in the legs. Pain is more in the calves. No hx of dvt. Legs occasionally feel week. Is on a statin. Sugars have been overall ok. Occasionally low. Sees endo. Meds were switched to jardiance.a few months ago. Discussed hydration. MEDICATIONS: Current Outpatient Medications Medication Sig atorvastatin (LIPITOR) 10 mg tablet Take 1 tablet by mouth once daily. clomiPRAMINE (ANAFRANIL) 50 mg capsule Take 2 capsules by mouth daily at bedtime AND 2 capsules every morning. lurasidone (LATUDA) 40 mg tablet Take 1 tablet by mouth daily with dinner. Take with 300 calories. LORazepam (ATIVAN) 1 mg tablet Take 1 tablet by mouth two times a day for [address] (PROTONIX) 40 mg tablet Take 1 tablet by mouth daily at 6 am. sucralfate (CARAFATE) 100 mg/mL suspension Take 10 mL by mouth before meals and at bedtime. (560cc=2wks) ondansetron orally disintegrating (ZOFRAN ODT) 4 mg disintegrating tablet Take 1 tablet by mouth every 6 hours as needed for nausea/vomiting. empagliflozin (JARDIANCE) 10 mg tablet Take 1 tablet by mouth daily with breakfast. tirzepatide (MOUNJARO) 2.5 mg/0.5 mL pen injector Inject 2.5 mg subcutaneously one time a week. eletriptan (RELPAX) 40 mg tablet At migraine onset. may repeat in 2 hours if necessary erenumab-aooe 70 mg/mL subcutaneous auto-injector (AIMOVIG) Inject 1 mL subcutaneously once every month. Do not shake. Blood-Glucose Sensor (FREESTYLE CECILY 3 SENSOR) eliseo 1 Each every 2 weeks. topiramate (TOPAMAX) 25 mg tablet Take 1 tablet by mouth daily at bedtime. levothyroxine (SYNTHROID) 125 mcg tablet take 1 tablet by mouth once daily. fludrocortisone (FLORINEF) 0.1 mg tablet Take 1 tablet by mouth once daily. tiZANidine HCl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 [facility] 08/15/2024 JAQUELIN DESAITODOB: [id number] [place], [place] [address]Hum: () Primary Insurance:[facility] OUTPATIENTPolicy Number: [id number] Date:Plan Name:X2 JAQUELIN DESAITODOB: [id number] [place] [address] [facility] 08/07/2024 Primary Insurance:[facility] MEDICAIDPolicy Number: [id number] Date:9279-00-83Wevk Name:X JAQUELIN DESAITODOB: [id number] [place] [address] [facility]
--- OUTSIDE RECORDS SUMMARY | 2025-07-19 10:29 | XMS RPT_ITS ---
Author Name Auto Generated Organization OHIP Support Name Relationship Address Phone TRINH SZYMANSKI Next of Kin [address] [place] [address] + TRINH SZYMANSKI Next of Kin [address] [place] [address] Unavailable NOT GIVEN Next of Kin [place] Unavailable TRIHN SZYMANSKI Next of Kin [address] [place] [address] + TRINH SZYMANSKI Next of Kin [address] [facility] [place] [address] Unavailable NOT GIVEN Next of Kin [place] Unavailable TRINH SZYMANSKI Next of Kin [address] [place] [address] + TRINH SZYMANSKI Next of Kin [address] [place] [address] Unavailable NOT GIVEN Next of Kin [place] Unavailable TRINH SZYMANSKI Next of Kin [address] [address] + TRINH SZYMANSKI Next of Kin [address] [facility] [place] [address] Unavailable NOT GIVEN Next of Kin [place]available TRINH SZYMANSKI Next of Kin [address] [facility] [place] [address] + TRINH SZYMANSKI Next of Kin [address] [facility] [place] [address] Unavailable NOT GIVEN Next of Kin [place] Un[place] TRINH SZYMANSKI Next of Kin [address] [facility] [place] [address] + NESSA TRINH Next of Kin [address] [place] [address] Unavailable NOT GIVEN Next of Kin [place], [place] Unavailable NESSA TRINH Next of Kin [address] [place] [address] + NESSA TRINH Next of Kin [address] [place] [address] Unavailable NOT GIVEN Next of Kin [place], Wy Unavailable NESSA TRINH Next of Kin [address] [place] [address] + NESSA TRINH Next of Kin [address] [place] [address] Unavailable NOT GIVEN Next of Kin [place], Wy Unavailable NESSA TRINH Next of Kin [address] [place] [address] + NESSA TRINH Next of Kin [address] [place] [address] Unavailable NOT GIVEN Next of Kin [place], Wy Unavailable NESSA TRINH Next of Kin [address] [place] [address] + NESSA TRINH Next of Kin [address] [facility] [place] [address] Unavailable NOT GIVEN Next of Kin [place], Wy Unavailable Care Team Providers Care Automatic Pilot Mechanic Name Role Phone KEVIN BRADLEY Primary Care Unavailable TRINA DAILY Referring Unavailable TRINA DAILY Attending Unavailable KEVIN BRADLEY Primary Care Unavailable TRINA DAILY Referring Unavailable TRINA DAILY Attending Unavailable KEVIN BRADLEY Attending Unavailable KEVIN BRADLEY Primary Care Unavailable KEVIN BRADLEY Referring Unavailable KEVIN BRADLEY Primary Care Unavailable KEVIN BRADLEY Referring Unavailable KEVIN BRADLEY Primary Care Unavailable KEVIN BRADLEY Primary Care Unavailable KEVIN [...] Unavailable TRINA DAILY Referring Unavailable KEVIN BRADLEY Attending Unavailable KEVIN BRADLEY Primary Care Unavailable RODNEY MACE JR Admitting Unavailable RODNEY MACE JR Attending Unavailable RODNEY MACE JR Primary Care Unavailable KEVIN BRADLEY MD Referring Unavailable MIRNA, KEVIN PRO Consulting Unavailable PROVIDER, UNKNOWN Consulting Unavailable KALANI DIAZ MD Attending Unavailable KALANI DIAZ MD Primary Care Unavailable KALANI DIAZ MD Admitting Unavailable MIRNA, KEVIN PRO Consulting Unavailable KEVIN BRADLEY MD Referring Unavailable PROVIDER, UNKNOWN Consulting Unavailable LEANDRO RIZZO Primary Care Unavailable MIRNA, KEVIN PRO Referring Unavailable LEANDRO RIZZO Admitting Unavailable MIRNA, KEVIN PRO Consulting Unavailable LEANDRO RIZZO Attending Unavailable PROVIDER, UNKNOWN Consulting Unavailable LEANDRO RIZZO Primary Care Unavailable MATTHIAS LEANDRO Daysi Admitting Unavailable KEVIN BRADLEY MD Consulting Unavailable KEVIN BRADLEY MD Referring Unavailable LEANDRO RIZZO Attending Unavailable PROVIDER, UNKNOWN Consulting Unavailable RODNEY MACE JR Admitting Unavailable RODRI, RODNEY SEPULVEDA Attending Unavailable RODNEY MACE JR Primary Care Unavailable MIRNA, KEVIN PRO Consulting Unavailable KEVIN BRADLEY MD Referring Unavailable PROVIDER, UNKNOWN Consulting Unavailable BRYCE JUSTIN Attending Unavailable BRYCE JUSTIN Primary Care Unavailable BRYCE JUSTIN Admitting Unavailable MIRNA, KEVIN PRO Consulting Unavailable KEVIN BRADLEY MD Referring Unavailable PROVIDER, UNKNOWN Consulting Unavailable RODNEY MACE JR Attending Unavailable RODNEY MACE JR Primary Care Unavailable RODNEY MACE JR Admitting Unavailable MIRNA, KEVIN PRO Consulting Unavailable KEVIN BRADLEY MD Referring Unavailable PROVIDER, UNKNOWN Consulting Unavailable KEVIN GARCIA Attending Unavailable KEVIN GARCIA Primary Care Unavailable KEVIN GARCIA Admitting Unavailable KEVIN BRADLEY MD Consulting Unavailable KEVIN BRADLEY MD Referring Unavailable PROVIDER, UNKNOWN Consulting Unavailable LEANDRO RIZZO Admitting Unavailable MIRNA, KEVIN PRO Consulting Unavailable KEVIN BRADLEY MD Referring Unavailable LEANDRO RIZZO Attending Unavailable MATTHIAS LEANDRO C Primary Care Unavailable PROVIDER, UNKNOWN Consulting Unavailable ANJU VILLAGRAN DO Attending Unavailable ANJU VILLAGRAN DO Primary Care Unavailable ANJU VILLAGRAN DO Admitting Unavailable KEVIN BRADLEY MD Referring Unavailable KEVIN BRADLEY MD Consulting Unavailable PROVIDER, UNKNOWN Consulting Unavailable PROBLEMS DATE TYPE CONDITION / CODE ATTENDING STATUS [facility] 01/18/2022 Active Graves disease / E05.00(ICD-10) NA [facility] 06/09/2025 Active Anemia, unspecif ied type / D64.9(ICD-10) NA [facility] 06/09/2025 Active Adrenal crisis ( HCC) / E27.2(ICD-10) NA [facility] 06/09/2025 Active Severe episode o f recurrent major depressive disorder, without psychotic features ([facility]) / F33.2(ICD-10) KEVIN BRADLEY [facility] 06/09/2025 Active Type 2 diabetes mellitus with hypoglycemia without coma, without long-term current use of insulin ([facility]) / E11.649(ICD-10) KEVIN BRADLEY [facility] 08/15/2022 Active SLE (systemic teo pus erythematosus related syndrome) ([facility]) / M32.9(ICD-10) KEVIN BRADLEY [facility] 08/15/2022 Active Post-surgical hypothyroidism / E89.0(ICD-10) KEVIN BRADLEY [facility] 08/14/2022 Active Adrenal insuffic iency (Warren's disease) ([facility]) / E27.1(ICD-10) KEVIN BRADLEY [facility] 01/18/2022 Active Esophagitis / K20.90(ICD-10) KEVIN BRADLEY [facility] 01/18/2022 Active Seizure-like act ivity ([facility]) / R56.9(ICD-10) KEVIN BRADLEY [facility] 06/27/2017 Active Mild intermitten t asthma without complication ([facility]) / J45.20(ICD-10) KEVIN BRADLEY Active [facility] 06/09/2025 Active Contusion of mul tiple sites of left shoulder and upper arm, subsequent encounter / S40.012D(ICD-10) KEVIN BRADLEY [facility] 06/09/2025 Active Contusion of mul tiple sites of left shoulder and upper arm, subsequent encounter / S40.022D(ICD-10) KEVIN BRADLEY [facility] 06/09/2025 Active Contusion of lef t hip, subsequent encounter / S70.02XD(ICD-10) KEVIN BRADLEY Active [facility] 02/05/2023 Active Major depressive disorder, recurrent episode, moderate (HCC) / F33.1(ICD-10) TRINA DAILY [facility] 02/05/2023 Active Mixed obsessiona l thoughts and acts / F42.2(ICD-10) TRINA DAILY [facility] 02/05/2023 Active Chronic post-tra umatic stress disorder (PTSD) / F43.12(ICD-10) TRINA DAILY [facility] 12/26/2022 Active Panic disorder w ith agoraphobia / F40.01(ICD-10) TRINA DAILY [facility] 04/02/[address] essors / Z65.8(ICD-10) TRINA DAILY [facility] 04/02/2025 Active Encounter for lo ng-term (current) use of medications / Z79.899(ICD-10) TRINA DAILY [facility] 02/05/2023 Active OLGA (generalized anxiety disorder) / F41.1(ICD-10) KEVIN BRADLEY [facility] 08/15/2022 Active Prediabetes / R73.03(ICD-10) KEVIN BRADLEY Active [facility] 08/15/2022 Active Recurrent major depression in partial remission / F33.41(ICD-10) KEVIN BRADLEY Active [facility] 08/15/2022 Active Other migraine w ithout status migrainosus, intractable / G43.819(ICD-10) KEVIN BRADLEY [facility] 01/18/2022 Active Mixed anxiety de pressive disorder / F41.8(ICD-10) KEVIN BRADLEY Active [facility] 09/13/2021 Active Migraine variant with headache / G43.809(ICD-10) KEVIN BRADLEY Active [facility] 09/13/2021 Active Weakness / R53.1(ICD-10) KEVIN BRADLEY Active [facility] 2025 Active Upper respirator y tract infection, unspecified type / J06.9(ICD-10) KEVIN BRADLEY Active [facility] PROCEDURES No Procedure Records Found RESULTS URINALYSIS Collected: 2:33 PM Status: F Source: [facility] TYPE CODE TESTS RESULT OUT OF [...] NC) Urobilinog NORM NORMAL: NORMAL LAB Sp Valier(LOINC) Sp Valier 1.010 NORMAL: 1.010-1.030 LAB Nitrite(LOINC) Nitrite NEG PEARL L: NEGATIVE LAB Leukocytes(KARMA NC) Leukocytes NEG NORMAL: NEGATIVE LAB Microscopic(LO INC) Microscopic NOT INDICATED Performed By: #### [id number] ## ## [facility],[address] [place] [address] RESPIRATORY PANEL PCR (POM) Collected: 07/19/2025 11: 00 AM Status: F Source: [facility] TYPE CODE TESTS RESULT OUT OF [...] THIS ASSAY H BEEN VALIDATED IN THE [facility] FOR USE WITH NASOPHARYNGEAL SPECIMENS IN [facility]. INTERPRETIVE DATA THE [employer] RESPIRATORY PATHOGENS FLEX NUCLEIC ACID TEST (RP FLEX) IS A MULTIPLEXED QUALITATIVE TEST INTENDED FOR THE SIMULTANEOUS DETECTION AND IDENTIFICATION OF MULTIPLE VIRAL AND BACTERIAL NUCLEIC ACIDS IN NASOPHARYNGEAL SWABS (POWER PLANT MANAGER) OBTAINED FROM INDIVIDUALS SUSPECTED OF RESPIRATORY TRACT INFECTION. THE TEST IS PERFORMED ON THE AUTOMATED [employer] SYSTEM UTILIZING REVERSE COLLECTION CARD CLERK (RT), POLYMERASE CHAIN REACTION (PCR), AND MICROARRAY [...] INFECTION THAT IS NOT DETECTED BY AN POWER PLANT MANAGER SPECIMEN. CONVERSELY, POSITIVE RESULTS DO NOT RULE-OUT [...] RECEIVE AND CULTURE SPECIMENS. Performed By: #### [id number] ## ## [place] [address] RSV Observed: 07/19/2025 11:00 AM Status: F Source: [facility] RSV NEGATIVE INTERNAL NEG QC PASS INTERNAL POS QC PASS EXTERNAL QC DONE? YES THIS TESTS IS INTENDED FOR IN [facility] USE TO AID IN THE DIAGNOSIS OF RESPIRATORY SYNCTYIAL VIRUS INFECTIONS IN AND PEDIATRIC PATIENTS UNDER THE AGE OF 5. IT IS RECOMMENDED THAT NEGATIVE TEST RESULTS BE CONFIRMED BY CELL CULTURE. Performed By: #### [id number] ## ## [place] [id number] CORONAVIRUS (SARS) ANTIGEN TEST Collect ed: 07/19/2025 11:00 AM Status: F Source: [facility] TYPE CODE TESTS RESULT OUT OF RANGE REFERENCE UNITS LAB SARS ANTIGEN(LOINC) SARS ANTIGEN NEGATIVE NORMAL: NEGATIVE LAB INTERNAL CONTROL(LOINC) INTERNAL CONTROL PASS LAB EXTERNAL QC DONE?(LOINC) EXTERNAL QC DONE? YES LAB SEND TO IC?(LOINC) SEND TO IC? NO Result Comment: SARS-CoV-2 THIS TEST IS BEING USED UNDER THE FDA EUA PROCEDURE. THIS ASSAY HAS BEEN VALIDATED AT [facility] FOR USE WITH NASAL AND NASOPHARYNGEAL SWAB [...] WITH PUBLIC HEALTH AUTHORITIES. Performed By: #### [id number] ## ## [facility],[address] [place] [address] INFLUENZA VIRUS RAPID A/B Observed: 06/24 11:00 AM Status: F Source: [facility] INFLUENZA A NEGATIVE INFLUENZA B NEGATIVE [...] DAYS. RESULT CRITICAL? NO Performed By: #### [id number] ## ## [address] [address] LACTATE Collected: 10:56 AM Status: F Source: [facility] TYPE CODE TESTS RESULT OUT OF RANGE REFERENCE UNITS LAB LACTATE(LOINC) LACTATE 1.8 0.4 - 2.0 mmol/L Performed By: #### [id number] ## ## [place] [id number] TROPONIN Collected: 10:55 AM Status: F Source: [facility] TYPE CODE TESTS RESULT OUT OF RANGE REFERENCE UNITS LAB HS TROPONIN(LOINC) HS TROPONIN <4.0 0.0 - 51.4 pg/mL Performed By: #### [id number] ## ## [address] [address] CBC + DIFF Collected: 10:55 AM Status: F Source: [facility] TYPE CODE TESTS RESULT OUT OF [...] 5.71 1.50 - 7.10 x10EE3 /UL LAB [place] #(LOINC) [place] # 0.79 0.20 - 1.00 x10EE3 /UL LAB EO #(LOINC) EO # 0.03 0.00 - 0.50 x10EE3/U L LAB Baso #(LOINC) Baso # 0.03 0.00 - 0.10 x10EE3 /UL LAB MANUAL DIFF(LOINC) MANUAL DIFF N/A LAB MORPHOLOGY(KARMA NC) MORPHOLOGY N/A Performed By: #### [id number] ## ## [place] [address] TSH Collected: 5 10:55 AM Status: F Source: [facility] TYPE CODE TESTS RESULT OUT OF RANGE REFERENCE UNITS LAB TSH(INC) TSH 2.69 0.35 - 3.74 uIU/ml Performed By: #### [id number] ## ## [place] [address] CMP WITH EGFR Collected: 5 10:55 AM Status: F Source: [facility] TYPE CODE TESTS RESULT OUT OF [...] OF AGE AND OLDER. Performed By: #### [id number] ## ## [facility],[address] [place] [address] LIPASE Collected: 5 10:55 AM Status: F Source: [facility] TYPE CODE TESTS RESULT OUT OF RANGE REFERENCE UNITS LAB LIPASE(LOINC) LIPASE 21.0 15.0 - 78.0 U/L Result Comment: *PLEASE NOTE THAT RANGES FOR LIPASE HAVE CHANGED OF 10/20/23 DUE TO AN ASSAY UPDATE BY THE FOUR CORNER FORMER MACHINE OPERATOR.THE NEW ASSAY RANGE IS 6-250 U/L, WITH A REFERENCE RANGE OF 16-77 U/L. Performed By: #### [id number] ## ## [facility],[address] [place] [address] PROGRESS Observed: 06/13/2025 2:37 PM Status: COMPLETED Source: [facility] HNO ID: [id number] Author: BRISEYDA KIM MD Service: ? Author Type: Physician Type: Progress Notes Filed: 06/13/2025 14:48 Note Text: virtual zoom 2:35-2:46 I have communicated my name and active licensure. The patient's identity and physical location were verified at the time of this visit. Either the patient or their legal inside sales representative has been informed of the risks [...] Observed: 06/12/2025 12:00 AM Status: COMPLETED Source: [facility] Telephone (ENDCMN) JAQUELIN SZYMANSKI ([id number]) 1995 F Date Time Provider Department 06/12/25 LITZY RUCKER During your visit today, we recorded the following information about you: Litzy Rucker, JOEL 06/12/2025 11:25 AM Signed Spoke with patient this morning re: sharing blood sugar readings prior to virtual visit tomorrow with Dr. Kim. Patient states that she is wearing a Cecily CGM. Instructions sent via [employer] for uploading and sharing her data with our office. Patient agreeable to doing so. Keshia Rucker RDN, [facility] Allergies As of Date: 06/12/2025 Noted Allergy Reaction PREDNISONE 12/23/2015 10 - Anaphylaxis Comments: Had at the same time as Denisegeri - unsure which caused the anaphylaxis [id number] 02/27/2017 10 - Anaphylaxis EXCEDRIN (ACETAMINOPHEN-CAFFEINE) 06/05/2013 7 - Swelling Comments: Mouth, can take tylenol LATEX 07/08/2014 2 - Rash 4 - Hives Comments: at site NEOSPORIN ([id number]*04/21/2014 4 - Hives VOLTAREN (DICLOFENAC SODIUM) 09/29/2014 [...] 01/15/2022 06/09/2025 Paresthesias [R20.2] 01/15/2022 Adrenal insufficiency (Warren's disease) (HCC)*08/14/2022 SLE (systemic lupus erythematosus related [...] Observed: 06/09/2025 4:28 PM Status: COMPLETED Source: [facility] ID: [id number] Author: KEVIN BRADLEY MD Service: ? Author Type: Physician Type: Progress Notes Filed: 06/09/2025 16:33 Note Text: Malia Szymanski is a 30-year-old female presenting for follow-up after an ER visit. HPI ER Follow-Up: - Recent ER visit at [facility]. Seen on 2 occasions at er on 06/05 and 06/06 - No loss of consciousness. No new headache or other neuro issues. - Underwent left hip X-ray and cervical spine and head CT, all unremarkable. - Was bending over in an aisle at [employer] and was struck by a shopping cart. [...] Z-geri - unsure which caused the anaphylaxis Yfh-Ozuyizcawwbdc-P* Anaphylaxis Excedrin [Acetamino* Swelling Mouth, can take [...] bowel prep, will need repeated EGD W/O [facility] SPEC VARICIES INJ 09/21/2021 EXTRACTION ERUPTED TOOTH 08/2015 HYSTERECTOMY 08/13/2020 LAPAROSCOPIC CHOLECYSTECTOMY 06/09/2021 [facility] REMOVAL OF OVARY(S) Right 12/28/2020 Dr Chavez THYROIDECTOMY TOTAL/COMPLETE 2016 [facility] / [facility] VAGINAL HYSTERECTOMY FAMILY [...] encounter (S70.02XD) - Recent ER visit at [facility] in [place]; reviewed available records including unremarkable X-rays of left hip. - Reviewed available records including unremarkable CT scan of cervical spine and neck. - Ice alternating with heat. - trazodone prn. Do not use with xanax. - return if not better in one week or as needed. 3. Severe episode of recurrent major depressive disorder, without psychotic features ([facility]) (F33.2) 4. Chronic post-traumatic stress disorder (PTSD) (F43.12) - Continues psychiatric follow-up with [facility]. 5. Type 2 diabetes mellitus with hypoglycemia without coma, without long-term current use of insulin ([facility]) (E11.649) - Pending A1c lab from April; advised patient to complete today. 6. SLE (systemic lupus erythematosus related syndrome) ([facility]) (M32.9) - stable. 7. Seizure-like activity ([facility]) (R56.9) - Continues neurology follow-up with Dr. Stanton. 8. Mild intermittent asthma without complication ([facility]) (J45.20) stable. 9. Esophagitis (K20.90) continue meds. 10. Adrenal insufficiency (Warren's disease) ([facility]) (E27.1) - Pending cortisol lab from April; advised patient to complete today. 11. Post-surgical hypothyroidism (E89.0) - Pending TSH lab from April; advised patient to complete today. - Continues endocrinology follow-up with Dr. Kim. (See patient after visit summary for additional instructions to patient) Kevin Bradley MD Recording using [employer] software for draft documentation of the visit was discussed with the patient/authorized inside sales representative; all questions welcomed and answered. Patient/authorized inside sales representative agreed to proceed [1] Social History [...] 06/09/2025 4:[address] atus: F Source: [facility] Order Comment: Specimen Type : BLOOD SPECIMEN Ordering Facility: [facility] Address: [address] [place] [address] TYPE CODE TESTS RESULT OUT OF RANGE REFERENCE UNITS LAB 6690-2([facility]) WBC # Bld Auto 8.99 3.70-11.00 k/uL LAB 789-8([facility]) RBC # Bld Auto 4.86 3.90-5.20 m/ uL LAB 718-7([facility]) Hgb Bld-mCnc 11.9 11.5-15.5 g/dL LAB 4544-3([facility]) Hct VFr Bld Auto 38.6 36.0-46.0 % LAB 787-2([facility]) MCV RBC Auto 79.4 Low 80.0-100.0 fL LAB 785-6([facility]) MCH RBC Qn Auto 24.5 Low 26.0-34.0 p g LAB 786-4(INC) MCHC RBC Auto-mCnc 30.8 30.5-36.0 g/dL LAB 46432-3([facility]) RDW RBC-Rto 16.4 High 11.5-15.0 % LAB 777-3(INC) Platelet # Bld Auto 411 High 150-400 k/uL LAB 44472-2([facility]) PMV Bld Auto 10.1 9.0-12.7 fL LAB 770-8(INC) Neutrophils/leuk NFr Bld Auto 55.4 % LAB 751-8(LOINC) Neutrophils # Bld Auto 4.98 1.45-7.50 k/uL LAB 736-9(INC) Lymphocytes/leuk NFr Bld Auto 35.8 % LAB 731-0(INC) Lymphocytes # Bld Auto 3.22 1.00-4.00 k/uL LAB 5905-5(INC) Monocytes/leuk NFr Bld Auto 7.9 % LAB 742-7(LOINC) Monocytes # Bld Auto 0.71 <0.87 k/uL LAB 713-8(LOINC) Eosinophil/leuk NFr Bld Auto 0.0 % LAB 711-2(LOINC) Eosinophil # Bld Auto <0.03 <0.46 k/uL LAB 706-2(LOINC) Basophils/leuk NFr Bld Auto 0.6 % LAB 704-7(LOINC) Basophils # Bld Auto 0.05 <0.11 k/uL LAB 00604-3(LOINC) Imm Granulocytes/liban k NFr Bld Auto 0.3 % LAB 46937-7(LOINC) Imm Granulocytes # Bld Auto 0.03 <0.10 k/uL LAB 75619-9(LOINC) nRBC/100 WBC Bld-Rto 0.0 /100 WBC LAB 771-6(INC) nRBC # Bld Auto <0.01 <0.01 k/u L LAB 28994-3([facility]) Differential method Bld Auto Performed By: #### 94257-7 # ### [facility] CLIA [id number] [address] [place] [address] [place] IRON+TIBC PNL SERPL Collected: 06/09/2025 4:[address] atus: F Source: [facility] Order Comment: Specimen Type : BLOOD SPECIMEN Ordering Facility: [facility] Address: [address] [place] [address] TYPE CODE TESTS RESULT OUT OF RANGE REFERENCE UNITS LAB 2498-4(LOINC) Iron SerPl-mCnc 48 41-186 ug/dL LAB 2500-7(INC) TIBC SerPl-mCnc 382 232-386 ug/dL LAB 86229-4(INC) Iron/TIBC SerPl-sRto 12.6 Low 15.0-57.0 % Performed By: #### 2143-6, 2 276-4, 92527-4, TSHRF #### [facility] CLIA [id number] [address] [place] [address] [place] FERRITIN SERPL-MCNC Collected: 06/09/20 4:02 PM Status: F Source: [facility] Order Comment: Specimen Type : BLOOD SPECIMEN Ordering Facility: [facility] Address: [address] [place] [address] TYPE CODE TESTS RESULT OUT OF RANGE REFERENCE UNITS LAB 2276-4(LOINC) Ferritin SerPl-mCnc 39.8 14.7-205.1 ng/mL Performed By: #### 2143-6, 2 276-4, 08942-7, TSHRF #### [facility] CLIA [id number] [address] [place] [address] [place] TSH W/REFLEX FT4 Collected: 4:02 PM Status: F Source: [facility] Comment: Specimen Type : BLOOD SPECIMEN Ordering Facility: [facility] Address: [address] [place] [address] TYPE CODE TESTS RESULT OUT OF RANGE REFERENCE UNITS LAB 3016-3(LOINC) TSH SerPl-aCnc 1.650 0.270-4.200 mIU/L Result Comment: If the patie nt is , TSH reference range varies by gestational period: First Trimester (weeks 9-12): 0.180-2.990 mIU/L Second Trimester: 0.110-3.980 mIU/L Third Trimester: 0.480-4.710 mIU/L Fercho Potter et al. A Practical Approach for the Verifications and Determination of Site- and Trimester-Specific Reference Intervals for Thyroid Function tests in . Thyroid, 2019:29:3:412-420. Robbin Wilson, et al. 2017 Guidelines of the [place] Thyroid Association for the Diagnosis and Management of Thyroid Disease during and the . Thyroid, 2017:27:3:315-389. Performed By: #### 2143-6, 2 276-4, 60178-1, TSHRF #### [facility] CLIA [id number] [address] [place], [place] [id number] [place] CORTIS SERPL-MCNC Collected: 06/09/2025 4:02 PM Stat us: F Source: [facility] Comment: Specimen Type : BLOOD SPECIMEN Ordering Facility: [facility] Address: [address] [place] [address] TYPE CODE TESTS RESULT OUT OF RANGE REFERENCE UNITS LAB 2143-6(LOINC) Cortis SerPl-mCnc 0.3 Low 4.8-19.5 ug/dL Result Comment: Provided ref erence range is from 6-10 AM sample collection time. Cortisol Reference Range: 6-10 AM = 4.8-19.5 ug/dL, 4-8 PM = 2.5-11.9 ug/dL Performed By: #### 2143-6, 2 276-4, 92866-7, TSHRF #### [facility] CLIA [id number] [address] [place] [address] OF [place] DEPRECATED HGB A1C BLD Collected: 06/09 4:02 PM Status: F Source: [facility] Comment: Specimen Type : BLOOD SPECIMEN Ordering Facility: [facility] Address: [address] [place] [address] TYPE CODE TESTS RESULT OUT OF RANGE REFERENCE UNITS LAB 4548-4(LOINC) HbA1c MFr Bld 5.6 4.3-5.6 % Result Comment: [place] Day[employer] betes Association guidelines indicate that patients with HgbA1c in the range 5.7-6.4% are at increased risk for development of diabetes, and intervention by lifestyle modification may be beneficial. HgbA1c greater or equal to 6.5% is considered diagnostic of diabetes. LAB 40477-3(LOINC) Est. average glucose Bld gHb Est-mCnc 114 mg/dL Result Comment: eAG: (Estima anjelica average glucose) is a calculated value from HgbA1c and is inside sales representative of the average blood glucose level in the last 2-3 month period. Performed By: #### 09403-1 # ### [facility] CLIA [id number] [address] [place] [address] OF NIKOLAS COMP METAB 2000 PNL SERPL Collected: 4:02 PM Status: F Source: [facility] Order Comment: Specimen Type : BLOOD SPECIMEN Ordering Facility: [facility] Address: [address] [place] [address] TYPE CODE TESTS RESULT OUT OF RANGE REFERENCE UNITS LAB 2885-2(LOINC) Prot SerPl-mCnc 7.0 6.3-8.0 g/dL LAB 1751-7(LOINC) Albumin SerPl-mCnc 4.3 3.9-4.9 g/dL LAB 27539-9(LOINC) Calcium SerPl-mCnc 9.6 8.5-10.2 mg/dL LAB 1975-2(LOINC) Bilirub SerPl-mCnc 0.7 0.2-1.3 mg/dL LAB 6768-6(LOINC) ALP SerPl-cCnc 116 34-123 U/L LAB 1920-8(LOINC) AST SerPl-cCnc 17 13-35 U/L LAB 1742-6(LOINC) ALT SerPl-cCnc 37 7-38 U/L LAB 2345-7(LOINC) Glucose SerPl-mCnc 85 74-99 mg/dL Result Comment: The [place] Diabetes Association (ADA) provides guidance for cutoff [...] Standards of Medical Care in Diabetes 2016, [place] Diabetes Association. Diabetes Care. 2016.39(Suppl 1). LAB 3094-0(LOINC) BUN SerPl-mCnc 7 7-21 mg/dL LAB 2160-0(LOINC) Creat SerPl-mCnc 0.99 High 0.58-0.96 mg/dL LAB 2951-2(LOINC) Sodium SerPl-sCnc 139 136-144 mmol/L LAB 2823-3(LOINC) Potassium SerPl-sCnc 4.2 3.7-5.1 mmol/L LAB 2075-0(LOINC) Chloride SerPl-sCnc 100 98-107 mmol/L LAB 2027-9(LOINC) CO2 SerPl-sCnc 25 22-30 mmol/L LAB 24477-5(LOINC) Anion Gap SerPl-sCnc 14 8-15 mmol/L LAB 85580-5(INC) eGFRcr SerPlBld CKD-EPI 2020 78 >=60 mL/min/1. [...] actual GFR. Performed By: #### 2132-9, 2 432-8, 8 #### [facility] CLIA [id number] [address] [place] [address] [place] VIT B12 SERPL-MCNC Collected: 06/09/2025 4:02 PM Sta tus: F Source: [facility] Order Comment: Specimen Type : BLOOD SPECIMEN Ordering Facility: [facility] Address: [address] [place] [address] TYPE CODE TESTS RESULT OUT OF RANGE REFERENCE UNITS LAB 2131-9([facility]) Vit B12 SerPl-mCnc 772 342-1785 pg/mL Performed By: #### 2132-9, 2 4322-8, 8 #### [facility] CLIA [id number] [address] [place] [address] [place] FOLATE SERPL-MCNC Collected: 06/09/2025 4:02 PM Stat us: F Source: [facility] Order Comment: Specimen Type : BLOOD SPECIMEN Ordering Facility: [facility] Address: [address] [place] [address] TYPE CODE TESTS RESULT OUT OF RANGE REFERENCE UNITS LAB 4-8([facility]) Folate SerPl-mCnc 5.7 >4.7 ng/mL Performed By: #### 2132-9, 2 3-8, 8 #### [facility] CLIA [id number] [address] [place] [address] [place] XR SHLDR >/=3V AP/TIMOTHY AP/OTHR LT Observed: 06/09/2025 4:00 PM Status: F Source: [facility] * * *Final Report* * * [...] Soft tissues are unremarkable. IMPRESSION: Normal exam. Heddler Tier: PSCB Transcribe Date/Time: Jun 14 2025 6:28P Dictated by : MOUNIKA HILARIO MD This examination was interpreted and the report reviewed and electronically signed by: MOUNIKA HILARIO MD on Jun 14 2025 6:29PM EST [id number] Observed: 06/09/2025 3:40 PM Status: COMPLETED Source: [facility] HNO ID: [id number] Author: GINO LENZ RT(R) Service: ? Author Type: Mass Spectroscopist Type: Progress Notes Filed: 06/09/2025 15:58 Note [...] PATIENT PRESENTS WITH AN IMPLANTABLE OR ATTACHED OIL DIPPER: No RADIOLOGY DEPARTMENT: General X-ray: Exam(s) Completed: Upper Extremity X-Ray(s): Shoulder, AP / TRUE AP / AXILLARY left PERIPHERAL IV DATA: Not applicable SIGNED BY: RT Solange(R) June 09, 2025 3:42 PM IDAOV Observed: 06/09/2025 3:00 PM Status: COMPLETED Source: [facility] NESSAJAQUELIN ([id number]) 1995 F Date Time Provider Department 06/09/25 3:00 PM KEVIN BRADLEY [facility] During your visit today, we recorded [...] Bradley MD 06/09/2025 4:33 PM Signed Malia Syzmanski is a 30-year-old female presenting for follow-up after an ER visit. HPI ER Follow-Up: - Recent ER visit at [facility] in [place]. Seen on 2 occasions at er on 06/05 and 06/06 - No loss of consciousness. No new headache or other neuro issues. - Underwent left hip X-ray and cervical spine and head CT, all unremarkable. - Was bending over in an aisle at [employer] and was struck by a shopping cart. [...] Z-geri - unsure which caused the anaphylaxis Gfl-Uacrwjzeiqfyf-I* Anaphylaxis Excedrin [Acetamino* Swelling Mouth, can take [...] bowel prep, will need repeated EGD W/O [facility] SPEC VARICIES INJ 09/21/2021 EXTRACTION ERUPTED TOOTH 08/2015 HYSTERECTOMY 08/13/2020 LAPAROSCOPIC CHOLECYSTECTOMY 06/09/2021 Byron Story REMOVAL OF OVARY(S) Right 12/28/2020 Dr Chavez THYROIDECTOMY TOTAL/COMPLETE 2016 graves [facility] / [facility] VAGINAL HYSTERECTOMY FAMILY [...] encounter (S70.02XD) - Recent ER visit at [facility] in [place]; reviewed available records including unremarkable X-rays of left hip. - Reviewed available records including unremarkable CT scan of cervical spine and neck. - Ice alternating with heat. - trazodone prn. Do not use with xanax. - return if not better in one week or as needed. 3. Severe episode of recurrent major depressive disorder, without psychotic features ([facility]) (F33.2) 4. Chronic post-traumatic stress disorder (PTSD) (F43.12) - Continues psychiatric follow-up with YESSY Daily. 5. Type 2 diabetes mellitus with hypoglycemia without coma, without long-term current use of insulin ([facility]) (E11.649) - Pending A1c lab from April; advised patient to complete today. 6. SLE (systemic lupus erythematosus related syndrome) ([facility]) (M32.9) - stable. 7. Seizure-like activity ([facility]) (R56.9) - Continues neurology follow-up with Dr. Stanton. 8. Mild intermittent asthma without complication ([facility]) (J45.20) stable. 9. Esophagitis (K20.90) continue meds. 10. Adrenal insufficiency (Warren's disease) ([facility]) (E27.1) - Pending cortisol lab from April; advised patient to complete today. 11. Post-surgical hypothyroidism (E89.0) - Pending TSH lab from April; advised patient to complete today. - Continues endocrinology follow-up with Dr. Kim. (See patient after visit summary for additional instructions to patient) Kevin Bradley MD Recording using [employer] software for draft documentation of the visit was discussed with the patient/authorized inside sales representative; all questions welcomed and answered. Patient/authorized inside sales representative agreed to proceed [1] Social History [...] Z-geri - unsure which caused the anaphylaxis UYN-XBXZQNINKDXRS-EVHL-BUFFERS 02/27/2017 10 - Anaphylaxis EXCEDRIN (ACETAMINOPHEN-CAFFEINE) 06/05/2013 7 - Swelling Comments: Mouth, can take tylenol LATEX 07/08/2014 2 - Rash 4 - Hives Comments: at site NEOSPORIN (CHLQMCLL-IYCVEJNDND-TA*04/21/2014 4 - Hives VOLTAREN (DICLOFENAC SODIUM) 09/29/2014 [...] (HCC) [R56.9] Mild intermittent asthma without complication (HCC) [J45.20] Esophagitis [K20.90] Adrenal insufficiency (Davonte's disease) (HCC) [E27.1] Post-surgical hypothyroidism [E89.0] Chronic post-traumatic stress disorder (PTSD) [F43.12] Order(s):pantoprazole DR (PROTONIX) 40 mg tabletTake 1 tablet by mouth daily at 6 am.Disp: 90 tabletRfl: 3 XR SHOULDER GENERAL 3V OR MORE AP/TRUE AP/OTHER LEFT [[id number]] Order #: [id number] FUTURE tiZANidine (ZANAFLEX) 4 mg tabletTake 1 [...] 03/20/2021 Recurrent major depression in partial remission*03/21/2021 Warren's disease (HCC) [E27.1] 09/07/2021 11/18/2022 Vertigo [R42] [...] 01/15/2022 06/09/2025 Paresthesias [R20.2] 01/15/2022 Adrenal insufficiency (Warren's disease) (HCC)*08/14/2022 SLE (systemic lupus erythematosus related [...] for Encounter Date Provider Department Center 06/09/2025 [id number] BRADLEY [facility] Encounter Status:Closed by KEVIN BRADLEY on 06/09/25 CT HIP W/O LT Observed: 06/06/2025 5:29 PM Status: F Source: [place] [address] Patient: JAQUELIN SZYMANSKI Phone#: : 1995 Age: 30 Gender: F Pt. Type: ER Account: [id number] Location: [facility] Ordering: RODNEY MACE Exam Date: 06/06/2025/17:18 Family Phys: KEVIN BRADLEY Charge Code: [id number] Physician: Greenwood Order #: [id number] Dose#: 9.9 mGy PROCEDURE: CT HIP LT [...] Observed: 06/06/2025 4:40 PM Status: F Source: [facility] Visit Overview - YANCI SZYMANSKI, : 1995, , [place] [address] [id number] 06/06/2025 Patient: JAQUELIN SZYMANSKI Sex: Female : 1995 Age: 30y 06/06/2025 06:08 PM EDT ED Arrival:16:40 06/06/2025 EDT Status:not Recent Travel:no Language:eng Adv Directive: Isolation Status: Ethnicity:N Fall Risk:risk Infectious Disease Exposure:no Measurements:5'5 / 165.1 Self-Harm Status:risk Sepsis Screen:negative cm 186.0 lb / 84.4 kg Chief Complaint:LEFT LOWER EXTREMITY PAIN, (Mirna), and (Pt offers was ran over with a shopping cart at [facility] and knocked over and c/o unable to put pressure on her leg and nauseated ) ALLERGIES azithromycin Excedrin Migraine latex Neosporin (azg-lfs-jsswx) 1 of 4 Visit Overview - JAQUELIN [...] a day. PAST MEDICAL HISTORY / PROBLEMS Davonte's Disease Diabetes Mellitus Type 2 Grave's Disease Immunizations: up-to-date LNMP: No menstrual periods Migraine Headache nonalcoholic steatohepatitis See nurses notes Seizure PAST SURGICAL HISTORY Appendectomy Gallbladder Surgery Total abdominal hysterectomy SOCIAL HISTORY Smoking status: No Alcohol use: No Drug use: No 2 of 4 Visit Overview - JAQUELIN SZYMANSKI, : 1995, , ED [...] L wo Cont 3 of 4 Visit Overview - JAQUELIN SZYMANSKI, : 1995, , CLINICAL IMPRESSION CONTUSION TO THE LEFT HIP 4 of 4 ED VITALS FLOW SHEET Observed: 4:40 PM Status: F Source: [facility] Vitals - JAQUELIN SZYMANSKI, : 1995, , Vital Sign Flow Sheet [address] [address] [id number] 06/06/2025 Patient: JAQUELIN SZYMANSKI Sex: Female : [...] Observed: 06/06/2025 4:40 PM Status: F Source: [facility] AJQUELIN SZYMANSKI, : 1995, , [address] [address] [id number] 06/06/2025 Patient: JAQUELIN SZYMANSKI Sex: Female : 1995 Age: 30y Item Facility Professional Category Description Code Code Quantity Fee Total Nurse/E/M EMERGENCY 491680 1 $0.00 $0.00 DEPARTMENT VISIT HIGH/URGENT SEVERITY (92741-61) Nurse/IV/IM/Infusions IM/SQ (53886) 690779 1 $0.00 $0.00 Grand Total $0.00 Providers Rodney Mace D.O. Chief Complaint HIP INJURY. Principal Diagnosis Contusion to the left hip. 1 of 2 [facility], : 1995, , ICD-10 Codes S70.02xA: Contusion of left hip, initial encounter 2 of 2 ED NURSES CLINICAL NOTE Observed: 2024 4:40 PM Status: F Source: [facility] Nurse Narrative - BUDDY SZYMANSKI, : 1995, , Nurse Clinical Narrative [address] [address] [id number] 06/06/2025 16:40:00 Patient: JQAUELIN SZYMANSKI Sex: Female : 1995 Age: 30y Disposition: Discharge to Home Disposition Decision Time: 17:54 06/06/2025 Departure Time: 18:06 06/06/2025 TRIAGE Arrived by private vehicle. Historian: (patient). Primary physician (Mirna). ( Pt offers was ran over with a shopping cart at [facility] and knocked over and c/o unable to put pressure on her leg and nauseated). Triage time: 16:39 06/06/2025. Acuity: LEVEL 4. Chief Complaint: LEFT LOWER EXTREMITY PAIN. Injury occurred. This started yesterday. It is described as radiating to the left lower extremity. SEPSIS SCREEN: NEGATIVE. SIRS criteria negative: heart rate greater than 90. No possible sources of infection. -- 16:48 06/06/25 EDT Brianna Rodríguez R.N. 16:45 06/06/25. BP: 122/81 MAP: 95. HR: 109. RR: 17. O2 saturation: 99% Temperature: 97.3 F. Pain level now 9/10. (tylenol 1230- 2 tabs ES). -- 16:45 06/06/25 ASIM Rodríguez R.N. Measurements: 16:45 06/06/25 Wt: 84.4 kg, Ht/Osmar: 65.0 in, BMI: 30.95 -- 16:45 06/06/25 EDT Brianna Rodríguez R.N. Medications: Xanax 0.5 mg tablet: 1 once a day. -- 16:43 06/06/25 VISHALT Brianna Rodríguez R.N. topiramate 25 mg tablet: 1 once a day. -- 16:43 06/06/25 VISHALT Brianna Rodríguez R.N. lurasidone 40 mg tablet: 1 once a day. -- 16:43 06/06/25 VISHALT Brianna Rodríguez R.N. 1 of 4 Nurse Narrative [...] ASIM Rodríguez R.N. 16:39 06/06/25. Preferred Pharmacy: ([facility]). -- 16:48 06/06/25 ASIM Rodríguez R.N. Allergies: Excedrin Migraine -- 16:43 06/06/25 ASIM Rodríguez R.N. Neosporin (byw-tnz-yhbmr) -- 16:43 06/06/25 ASIM Rodríguez R.N. latex -- 16:43 06/06/25 ASIM Rodríguez R.N. azithromycin -- 16:43 06/06/25 ASIM Rodríguez R.N. Problems: nonalcoholic steatohepatitis -- 16:44 06/06/25 ASIM Rodríguez R.N. Davonte's Disease -- 16:44 06/06/25 ASIM Rodríguez R.N. Migraine Headache -- 16:44 06/06/25 ASIM Rodríguez R.N. Grave's Disease -- 16:44 06/06/25 ASIM Rodríguez R.N. Diabetes Mellitus Type 2 -- 16:44 06/06/25 ASIM Rodríguez R.N. Seizure -- 16:44 06/06/25 VISHALT Brianna Rodríguez R.N. Surgeries: Gallbladder Surgery -- 16:44 06/06/25 ASIM Rodríguez R.N. Appendectomy -- 16:44 06/06/25 ASIM Rodríguez R.N. -- 16:44 06/06/25 ASIM Rodríguez R.N. Total abdominal hysterectomy -- 16:44 06/06/25 ASIM Rodríguez R.N. History 2 of 4 Nurse Narrative - NESSA JAQUELIN, : 1995, , 16:39 06/06/25. PAST MEDICAL [...] risk by ID band. -- 16:48 06/06/25 ASIM Rodríguez R.N. Interventions 16:39 06/06/25. Advanced care plan discussed with patient (Ful Code). -- 16:48 06/06/25 ASIM Rodríguez R.N. PHYSICAL ASSESSMENT 17:47 06/06/25. Ambulatory to room. GENERAL / NEURO / PSYCH: Oriented X 4. Alert. Appears in no acute distress. EXTREMITIES: Limited ROM present. Extremity pulses are within normal limits. Neuro-vascular status intact to the extremity. No lower extremity edema. Normal gait. Left hip: tenderness. SKIN: Skin intact. Skin is warm and dry. -- 17:47 06/06/25 EDT Javy Zee R.N. NURSING PROGRESS NOTES 17:15 06/06/25. Ondansetron (Zofran) ODT PO 4 mg given. -- 17:15 06/06/25 EDT Javy Zee R.N. 17:15 06/06/25. KetorOLAC (Toradol) IM 30 mg given. -- 17:15 06/06/25 EDT Javy Zee R.N. DISPOSITION / DISCHARGE 3 of 4 Nurse Narrative - JAQUELIN SZYMANSKI, : 1995, , 18:06 06/06/25. Condition at departure: unchanged. No learning barriers present. Discharge instructions provided and reviewed. Patient verbalized understanding. Written instructions provided in Moroccan. The patient was discharged by the physician. The patient was discharged home. The patient left ambulatory and via private vehicle. Patient driving. -- 18:06 06/06/25 EDT Javy Zee R.N. Departure time: 18:06 06/06/2025. -- 18:07 06/06/25 EDT Javy Zee R.N. (Electronically signed by Javy Zee R.N. 06/06/25 18:08:14 EDT) Generated by [facility] 4 of 4 ED ORDER SHEET (CPOE ONLY) Observed: 4:40 PM Status: F Source: [facility] Order Sheet - JAQUELIN SZYMANSKI , : 1995, , Order Sheet [address] [place] [address] [id number] 06/06/2025 Patient: JAQUELIN SZYMANSKI Sex: Female : 1995 Age: 30y MEASUREMENTS: Wt: 84.4 kg, Ht/Osmar: 65.0 in, BMI: 30.95 ALLERGIES: Excedrin Migraine, Neosporin (exx-xnh-qbzqt), azithromycin, latex MEDICATION/IV/DRIP/FLUID ORDERS Order Description Priority [...] JAQUELIN SZYMANSKI, : 1995, , Javy Zee RKayeN. Order Comments: 17:02 06/06/2025: Status: Not . Rodney Mace D.O. Reason for Study: hip trauma STAFF ORDERS Order Description Priority Entered Acknowledged Collected Completed [Electronically signed by Rodney Mace D.O. (06/06/2025 17:54 EDT)] 2 of 2 ED PHYSICIAN CLINICAL REPORT Observed: 0 06/06/2025 4:40 PM Status: F Source: [facility] Narrative - JAQUELIN SZYMANSKI, : 1995, , Physician Clinical [address] [address] [id number] 06/06/2025 16:40:00 Patient: JAQUELIN SZYMANSKI Sex: Female [...] vision. Status: Not . 1 of 5 JAQUELIN Durham, : 1995, , PAST HISTORY See nurses notes. Warren's Disease Diabetes Mellitus Type 2 Grave's Disease [...] day. Allergies: azithromycin Excedrin Migraine latex Neosporin (dmc-moe-pmghm) SOCIAL HISTORY 2 of 5 JAQUELIN Durham, : 1995, , Never smoker. No alcohol [...] 06/06/2025 17:29:00 EDT MsgRcvd: 06/06/2025 17:39 EDT [place] [address] Patient: JAQUELIN SZYMANSKI Phone#: : 1995 Age: 30 Gender: F Pt. Type: ER Account: [id number] Location: 052 Ordering: RODNEY MACE Exam Date: 06/06/2025/17:18 Family Phys: KEVIN MIRNA Charge Code: [id number] Physician: Greenwood Order #: [id number] Dose#: 9.9 mGy 3 of 5 Narrative - JAQUELIN SZYMANSKI, : 1995, , PROCEDURE: [...] allegedly being hit by shopping cart at [employer]. She states it ran her over. Patient [...] left hip. 4 of 5 Narrative - NESSAJAQUELIN BROWN, : 1995, , DISCHARGE INSTRUCTIONS Follow-up: Follow up with your healthcare provider. Understanding of the discharge instructions verbalized by patient. (Electronically signed by Rodney Mace D.O. 06/06/25 17:54:42 EDT) Generated by [facility] 5 of 5 ED MED ADMINISTRATION DETAIL Observed: 0 06/06/2025 4:40 PM Status: F Source: [facility] Carbon Setter - NESSAJAQUELIN BROWN, : 1995, , Medication Administration Record [address] [place] [address] [id number] 06/06/2025 Patient: BUDDY SZYMANSKIASHReinaldo Cardenas Sex: Female : 1995 Age: 30y MEASUREMENTS: Wt: 84.4 kg, Ht/Osmar: 65.0 in, BMI: 30.95 ALLERGIES: Excedrin Migraine, Neosporin (ias-yvv-swwer), azithromycin, latex Medication Ordered Medication Administration Date/Time [...] Observed: 06/05 7:37 PM Status: F Source: [place] [address] Patient: JAUQELIN SZYMANSKI Phone#: : 1995 Age: 30 Gender: F Pt. Type: ER Account: [id number] Location: [facility] Ordering: OLIVER CUADRA Exam Date: 06/05/2025/19:21 Family Phys: KEVIN BRADLEY Charge Code: [id number] Physician: Greenwood Order #: [id number] Dose#: 11.9 mgy PROCEDURE: CT CERVICAL WITHOUT CONTRAST COMPARISON: [facility], CT, CERVICAL W/O CON, 04/11/2024, 16:39. INDICATIONS: [...] Observed: 06/05/2025 7:36 PM Status: F Source: [place] [address] Patient: JAQUELIN SZYMANSKIKaye Phone#: : 1995 Age: 30 Gender: F Pt. Type: ER Account: [id number] Location: 052 Ordering: OLIVER CUADRA Exam Date: 06/05/2025/19:34 Family Phys: KEVIN BRADLEY Charge Code: [id number] Physician: Greenwood Order #: [id number] Dose#: PROCEDURE: X-RAY HIP LT COMPLETE MIN [...] Observed: 06/05/20 7:36 PM Status: F Source: [place] [address] Patient: JAQUELIN SZYMANSKI. Phone#: : 1995 Age: 30 Gender: F Pt. Type: ER Account: [id number] Location: [facility] Ordering: OLIVER CUADRA Exam Date: 06/05/2025/19:21 Family Phys: KEVIN BRADLEY Charge Code: [id number] Physician: Greenwood Order #: [id number] Dose#: 57.50 mGy PROCEDURE: CT BRAIN WITHOUT CONTRAST COMPARISON: [facility], CT, BRAIN W/O CON, 08/15/2024, 18:11. INDICATIONS: [...] 0 06/05/2025 6:54 PM Status: F Source: [facility] Carbon Setter - JAQUELIN SZYMANSKI, : 1995, , Medication Administration Record [address] [address] [id number] 06/05/2025 Patient: JAQUELIN SZYMANSKI Sex: Female : 1995 Age: 30y MEASUREMENTS: Wt: 84.4 kg, Ht/Osmar: 65.0 in, BMI: 30.95 ALLERGIES: Excedrin Migraine, Neosporin (gle-evn-pmhqd), azithromycin, latex Medication Ordered Medication Administration Date/Time [...] Observed: 06/05/2025 6:54 PM Status: F [facility] 1995, , [address] [address] [id number] 06/05/2025 Patient: JAQUELIN SZYMANSKI Sex: Female : 1995 Age: 30y Item Professional Category Description Facility Code Code Quantity Fee Total Nurse/E/M EMERGENCY 868054 1 $0.00 $0.00 DEPARTMENT VISIT HIGH/URGENT SEVERITY (80734-77) Grand Total $0.00 Providers Oliver Cuadra D.O. Chief Complaint LEFT HIP INJURY. Principal Diagnosis Minor closed head injury. No loss of consciousness. No right cerebral injury or right sided epidural hematoma. No left cerebral injury or left sided epidural hematoma. No cerebellar injury. No brainstem injury. No concussion or skull fracture. [facility] 2 [facility] : 1995, , Cervical strain. Sprain of the iliofemoral ligament of the left hip. ICD-10 Codes S16.1xxA: Strain of muscle, fascia and tendon at neck level, initial encounter S06.890A: Other specified intracranial injury without loss of consciousness, initial encounter S73.112A: Iliofemoral ligament sprain of left hip, initial encounter 2 of 2 ED PHYSICIAN CLINICAL REPORT Observed: 0 06/05/2025 6:54 PM Status: F Source: [facility] JAQUELIN SZYMANSKI, : 1995, , Physician Clinical [address] [address] [id number] 06/05/2025 18:54:00 Patient: JAQUELIN SZYMANSKI Sex: Female [...] prior to arrival. Occurred at a store ([facility]). The patient complains of severe pain. The [...] pain. Status: Not . 1 of 7 JAQUELIN Durham, : 1995, , PAST HISTORY See nurses notes. Warren's Disease Diabetes Mellitus Type 2 Grave's Disease [...] . Allergies: azithromycin Excedrin Migraine latex Neosporin (ebt-qau-ksvkf) SOCIAL HISTORY 2 of 7 JAQUELIN Durham, : 1995, , Never smoker. No alcohol [...] 06/05/2025 19:36:00 EDT MsgRcvd: 06/05/2025 19:46 EDT [facility] 3 of 7 [facility] - JAQUELIN SZYMANSKI, : 1995, , [address] [place] [address] Patient: JAQUELIN SZYMANSKI Phone#: : 1995 Age: 30 Gender: F Pt. Type: ER Account: [id number] Location: [facility] Ordering: OLIVER CUADRA Exam Date: 06/05/2025/19:21 Family Phys: KEVIN MIRNA Charge Code: [id number] Physician: Greenwood Order #: [id number] Dose#: 57.50 mGy PROCEDURE: CT BRAIN WITHOUT CONTRAST COMPARISON: [facility], CT, BRAIN W/O CON, 08/15/2024, 18:11. INDICATIONS: [...] 06/05/2025 19:37:00 EDT MsgRcvd: 06/05/2025 19:50 EDT [facility] 4 of 7 Narrative - JAQUELIN SZYMANSKI, : 1995, , [address] [place] [address] Patient: JAQUELIN SZYMANSKI Phone#: : 1995 Age: 30 Gender: F Pt. Type: ER Account: [id number] Location: [facility] Ordering: OLIVER CUADRA Exam Date: 06/05/2025/19:21 Family Phys: KEVIN BRADLEY Charge Code: [id number] Physician: Greenwood Order #: [id number] Dose#: 11.9 mgy PROCEDURE: CT CERVICAL WITHOUT CONTRAST COMPARISON: [facility], CT, CERVICAL W/O CON, 04/11/2024, 16:39. INDICATIONS: [...] was struck by a shopping cart at [employer]. 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 6 of 7 Narrative - JAQUELIN SZYMANSKI, : 1995, , CLINICAL [...] days, dispense 15 tablet. Refills 0. Pharmacy: [facility] - [address] [place] [address]. Understanding of the discharge instructions verbalized by patient. Follow-up with: Dr. Kevin Bradley, Phone: [phone], [place], [place]. Follow up in three days. Call for an appointment. Reason for referral: evaluation and treatment. Summary of care provided to patient. (Electronically signed by Oliver Cuadra D.O. 06/05/25 21:25:22 EDT) Generated by [facility] 7 of 7 ED VISIT SUMMARY Observed: 06/05/2025 6:54 PM Status: F Source: [facility] Visit Overview - YANCI SZYMANSKI, : 1995, , Visit [place] [id number] 06/05/2025 Patient: JAQUELIN SZYMANSKI Sex: Female : 1995 Age: 30y 06/05/2025 09:25 PM EDT ED Arrival:18:54 06/05/2025 EDT Status:not Recent Travel:no Language:eng Adv Directive:No Isolation Status: Ethnicity:N Fall Risk:risk Infectious Disease Exposure:no Measurements:5'5 / 165.1 Self-Harm Status:risk Sepsis Screen:negative cm 186.0 lb / 84.4 kg Chief Complaint:(18:41 06/05/2025), ([place]), and (Pt was [place] by [place] and then a ladder fell on her. ) ALLERGIES azithromycin Excedrin Migraine latex Neosporin (ycf-wvg-yugfn) HOME MEDICATIONS Aimovig Autoinjector 70 mg/mL subcutaneous auto-injector: 1 once a month . atorvastatin 10 mg tablet: 1 tablet once a day . 1 of 4 Visit Shi - JAQUELIN SZYMANSKI, : 1995, , clomipramine [...] day . PAST MEDICAL HISTORY / PROBLEMS Warren's Disease Diabetes Mellitus Type 2 Grave's Disease Migraine Headache nonalcoholic steatohepatitis See nurses notes Seizure PAST SURGICAL HISTORY Appendectomy Gallbladder Surgery Total abdominal hysterectomy SOCIAL HISTORY Smoking status: No Alcohol use: No Drug use: No ED COURSE MEDICATIONS GIVEN IN EMERGENCY DEPARTMENT 19:28 06/05/25 OxyCODONE-APAP 5-325 (Percocet) PO 1 tab 20:50 06/05/25 ketorolac (Toradol) PO 10 mg 2 of 4 Visit Shi - JAQUELIN SZYMANSKI, : 1995, , IV [...] STRAIN 3 of 4 Visit Overview - NESSA JAQUELIN, : 1995, , MINOR CLOSED HEAD INJURY. NO LOSS OF CONSCIOUSNESS. NO RIGHT CEREBRAL INJURY OR RIGHT SIDED EPIDURAL HEMATOMA. NO LEFT CEREBRAL INJURY OR LEFT SIDED EPIDURAL HEMATOMA. NO CEREBELLAR INJURY. NO BRAINSTEM INJURY. NO CONCUSSION OR SKULL FRACTURE SPRAIN OF THE ILIOFEMORAL LIGAMENT OF THE LEFT HIP 4 of 4 ED ORDER SHEET (CPOE ONLY) Observed: 6:54 PM Status: F Source: [facility] Order Sheet - JAQUELIN SZYMANSKI , : 1995, , Order Sheet [facility] [address] [place] [address] [id number] 06/05/2025 Patient: JAQUELIN SZYMANSKI Sex: Female : 1995 Age: 30y MEASUREMENTS: Wt: 84.4 kg, Ht/Osmar: 65.0 in, BMI: 30.95 ALLERGIES: Excedrin Migraine, Neosporin (tef-vdb-hahxj), azithromycin, latex MEDICATION/IV/DRIP/FLUID ORDERS Order Description Priority Entered Acknowledged Completed OxyCODONE-APAP 5-325 19:14 06/05/2025 19:23 19:28 (Percocet) PO1 tab (NOW x1, Oliver Cuadra D.O. 06/05/2025 06/05/2025 HIGH ALERT MEDICATION) Angel Luis Jorgensen R.N. Reason for ordering [...] 06/05/2025 1 of 2 Order Sheet - JAQUELIN SZYMANSKI, : 1995, , Angel Luis Jorgensen R.N. [...] Observed: 2024 6:54 PM Status: F Source: [facility] Nurse Narrative - BUDDY SZYMANSKI, : 1995, , Nurse Clinical [address] [address] [phone] 06/05/2025 18:54:00 Patient: JAQUELIN SZYMANSKI Sex: Female : 1995 Age: 30y Disposition: Discharge to Home Disposition Decision Time: 20:30 06/05/2025 Departure Time: 20:53 06/05/2025 TRIAGE Arrived by private vehicle. Historian: (patient). Unaccompanied. Primary physician (Mirna). Triage time: 18:55 06/05/2025. Acuity: LEVEL 4. Chief Complaint: INJURY TO THE LEFT HIP. Occurred 18:41 06/05/2025. ( Pt was hit by shopping cart at [facility] and then a ladder fell on her.). The patient has had trouble walking, neck pain and back pain. Fell; fell onto tile surface while standing. Treatment HEADRIG SAWYER: None. SEPSIS SCREEN: NEGATIVE. SIRS criteria negative: heart rate greater than 90. No possible sources of infection. -- 18:58 06/05/25 EDT José Miguel Story R.N. 18:58 06/05/25. BP: 153/90 MAP: 111. HR: 118. RR: 18. O2 saturation: 100% Temperature: 97.8 F. Pain level now 06/01. -- 18:58 06/05/25 ASIM Story R.N. Measurements: 18:58 06/05/25 Wt: 84.4 kg, Ht/Osmar: 65.0 in, BMI: 30.95 -- 18:06/05/25 ASIM Story R.N. Medications: 1 of 4 Nurse Narrative - NESSA JAQUELIN, : 1995, , Xanax 0.5 mg tablet: 1 once a day . -- 18:59 06/05/25 ASIM Story R.N. topiramate 25 mg tablet: 1 once a day . -- 18:06/05/25 ASIM Story R.N. lurasidone 40 mg tablet: 1 once a day . -- 18:06/05/25 ASIM Story R.N. levothyroxine 125 mcg tablet: 1 once a day . -- 18:06/05/25 ASIM Story R.N. Jardiance 10 mg tablet: 1 once a day . -- 18:06/05/25 ASIM Story R.N. fludrocortisone 0.1 mg tablet: 1 once a day . -- 18:59 06/05/25 ASIM Story R.N. eletriptan 40 mg tablet: 1 tablet as directed . (onset and every 2 hours) -- 18:06/05/25 ASIM Story R.N. dexamethasone 0.5 mg tablet: 1 once a day . -- 18:06/05/25 ASIM Story R.N. clomipramine 50 mg capsule: 4 capsule twice a day . (200 mg total) -- 18:06/05/25 ASIM Story R.N. atorvastatin 10 mg tablet: 1 tablet once a day . -- 18:06/05/25 EDT José Miguel Story, R.N. Aimovig Autoinjector 70 mg/mL subcutaneous auto-injector: 1 once a month . -- 18:59 06/05/25 ASIM Story R.N. 18:55 06/05/25. Preferred Pharmacy: ([facility]). -- 18:58 06/05/25 ASIM Story R.N. Allergies: Excedrin Migraine -- 18:56 06/05/25 ASIM Story R.N. Neosporin (ybp-akj-eobnq) -- 18:56 06/05/25 ASIM Story R.N. latex -- 18:56 06/05/25 ASIM Story R.N. azithromycin -- 18:56 06/05/25 VISHALT José Miguel Story R.N. Problems: nonalcoholic steatohepatitis -- 18:57 06/05/25 ASIM Story R.N. Davonte's Disease -- 18:57 06/05/25 ASIM Story R.N. Migraine Headache -- 18:57 06/05/25 ASIM Story R.N. Grave's Disease -- 18:57 06/05/25 ASIM Story R.N. Diabetes Mellitus Type 2 -- 18:57 06/05/25 ASIM Story R.N. Seizure -- 18:57 06/05/25 VISHALT José Miguel Story R.N. Surgeries: Gallbladder Surgery -- 18:57 06/05/25 ASIM Story R.N. Appendectomy -- 18:57 06/05/25 ASIM Story R.N. -- 18:57 06/05/25 ASIM Story R.N. Total abdominal hysterectomy -- 18:57 06/05/25 ASIM Story R.N. 2 of 4 Nurse Elizabeth - JAQUELIN SZYMANSKI, : 1995, , History [...] band. Patient in slippers. -- 18:58 06/05/25 EDT José Miguel Story R.N. Interventions 18:55 06/05/25. Advanced care plan discussed with patient. Patient does not have advanced directive. (full code). -- 18:58 06/05/25 EDT José Miguel Story R.N. PHYSICAL ASSESSMENT 19:57 06/05/25. GENERAL [...] Patient transported to CT by stretcher with radiologic technology teacher. -- 19:20 06/05/25 EDT Mile Alas R.N. 3 of 4 Nurse Narrative - JAQUELIN SZYMANSKI, : 1995, , 19:28 06/05/25. OxyCODONE-APAP 5-325 (Percocet) PO 1 tab given. Allergies verified and confirmed 5 rights. Information reviewed with patient including reason for taking this medication. Verbalizes understanding. -- 19:28 06/05/25 EDT Mile Alas R.N. 19:33 06/05/25. Patient returned from CT by stretcher with radiologic technology teacher. -- 19:33 06/05/25 EDT Mile Alas R.N. [...] Patient verbalized understanding. Written instructions provided in Moroccan. -- 20:55 06/05/25 EDT Mile Alas R.N. (Electronically signed by Mile Alas R.N. 06/05/25 20:55:58 EDT) Generated by [facility] 4 of 4 ED VITALS FLOW SHEET Observed: 6:54 PM Status: F Source: [facility] Vitals - JAQUELIN SZYMANSKI, : 1995, , Vital Sign Flow Sheet [address] [address] [phone] 06/05/2025 Patient: JAQUELIN SZYMANSKI Sex: Female : [...] Observed: 06/04/2025 4:00 PM Status: COMPLETED Source: [facility] ID: [id number] Author: TRINA DAILY APRN.HUY Service: ? Author Type: Nurse Practitioner Type: [...] visit. Either the patient or their legal inside sales representative has been informed of the risks and benefits of -- and alternatives to -- treatment through a remote evaluation and consents to proceed with the evaluation remotely. Recording using ambient Salemarked software for draft documentation of the visit was discussed with the patient/authorized inside sales representative; all questions welcomed and answered. 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 She has missed fewer days recently, taking only two days off since April for personal reasons. She uses one PTO day per month for mental health. She inquired about FMLA but has not met the required hours due to previous absences. She is concerned about stress triggering her Warren's disease, leading to potential hospitalizations. She is [...] bowel prep, will need repeated EGD W/O [facility] SPEC VARICIES INJ 09/21/2021 EXTRACTION ERUPTED TOOTH [...] by mouth three times daily with meals. 17785 mL 5 Blood-Glucose Meter Use to check [...] Appropriate Insight: Improving Judgment: Improving DATA REVIEWED: [facility] website checked and validated. All prescriptions have been APPROPRIATELY filled. No suspicious activity was identified. 06/04/2025 by Trina Daily APRN.LAB ASSISTANT Psychiatric scales, Labs, and Electronic medical record [...] DATE: June 04, 2025 TIME: 4:00 PM CBL Observed: 05/05/2025 1:00 PM Status: F Source: [facility] . MICRO - Microbiology PROCEDURE: Blood Culture [...] Locations *1: This test was performed at: [facility], [address] [place] [address], [facility] , CULTURE BLOOD [[place]] Observed: 2024 1:00 PM Status: F Source: [facility] CULTURE BLOOD [[place]] _[facility]_ [facility] REPORTS AND ATTACHMENTS FOR SCANNED REPORT 05/12/[email or web address] Performed By: #### [id number] ## ## [facility],[address] [place] [address] Observed: 05/05/2025 12:10 PM Status: F Source: [facility] . MICRO - Microbiology PROCEDURE: Blood Culture [...] Locations *1: This test was performed at: [facility], [address] [place] [address], [address] [place] [address] NT-PROBNP Collected: 12:10 PM Status: F Source: [facility] TYPE CODE TESTS RESULT OUT OF RANGE REFERENCE UNITS LAB NT PRO-BNP(LOINC) NT PRO-BNP 20 0 - 125 pg/ mL Performed By: #### [id number] ## ## [place] [id number] LACTATE Collected: 12:10 PM Status: F Source: [facility] TYPE CODE TESTS RESULT OUT OF RANGE REFERENCE UNITS LAB LACTATE(LOINC) LACTATE 2.1 High 0.4 - 2.0 mmol/L Result Comment: LACTATE 3 HR NOTIFIED TO: _RACNADINE 05/05/25.1256.CWB. . . LACTATE 3 HR NOTIFIED BY: _CB 05/05/25.1256.CWB. . . Performed By: #### [id number] ## ## [address] [address] TSH Collected: 12:10 PM Status: F Source: [facility] TYPE CODE TESTS RESULT OUT OF RANGE REFERENCE UNITS LAB TSH(LOINC) TSH 0.16 Low 0.35 - 3.74 uIU/ml Performed By: #### [id number] ## ## [address] [address] CBC + DIFF Collected: 12:10 PM Status: F Source: [facility] TYPE CODE TESTS RESULT OUT OF [...] 5.90 1.50 - 7.10 x10EE3 /UL LAB [place] #(LOINC) [place] # 0.65 0.20 - 1.00 x10EE3 /UL LAB EO #(LOINC) EO # 0.02 0.00 - 0.50 x10EE3/U L LAB Baso #(LOINC) Baso # 0.02 0.00 - 0.10 x10EE3 /UL LAB MANUAL DIFF(LOINC) MANUAL DIFF N/A LAB MORPHOLOGY([facility]) MORPHOLOGY N/A Performed By: #### [id number] ## ## [place] [address] C-REACTIVE PROTEIN Collected: 12:10 PM Status: F Source: [facility] TYPE CODE TESTS RESULT OUT OF RANGE REFERENCE UNITS LAB CRP([facility]) CRP 1.38 High 0.00 - 0.90 mg/dl Performed By: #### [id number] ## ## [facility],[address] [place], [place] [id number] CMP WITH EGFR Collected: 12:10 PM Status: F Source: [facility] TYPE CODE TESTS RESULT OUT OF RANGE REFERENCE UNITS LAB CMP with eGFR([facility]) CMP with eGFR Result Comment: COMPREHENSIV E METABOLIC PANEL LAB SODIUM(INC) SODIUM 139 136 - 145 mmol/l LAB POTASSIUM(IN C) POTASSIUM 4.4 3.5 - 5.1 mmol/L LAB CHLORIDE(INC ) CHLORIDE 102 98 - 107 mmol/L LAB CO2(INC) CO2 28.1 21.0 - 32.0 mmol/L LAB GLUCOSE([facility]) GLUCOSE 90 74 - 106 mg/dl LAB BUN([facility]) BUN 8 7 - 18 mg/dl LAB CREATININE([facility]) CREATININE 0.97 0.55 - 1.02 mg/dl LAB AST/SGOT(INC ) AST/SGOT 28 13 - 39 U/L LAB ALK PHOS([facility]) ALK PHOS 105 46 - 116 U/L LAB CALCIUM(LOINC) CALCIUM 8.4 Low 8.5 - 10.1 mg/dl LAB TOTAL PROTEIN(LOINC) TOTAL PROTEIN 7.9 6.4 - 8.2 g/dl LAB ALBUMIN(INC) ALBUMIN 3.2 Low 3.4 - 5.0 g/dL LAB GLOBULIN(INC ) GLOBULIN 4.7 High 1.5 - 3.8 [...] OF AGE AND OLDER. Performed By: #### [id number] ## ## [place] [address] CULTURE BLOOD [[place]] Observed: 2024 12:10 PM Status: F Source: [facility] CULTURE BLOOD [[place]] _[facility] REPORTS AND ATTACHMENTS FOR SCANNED REPORT 05/12/[email or web address].COMPLETE Performed By: #### [id number] ## ## [place] [id number] ED VISIT SUMMARY Observed: 05/05/2025 11:12 AM Status: F Source: [facility] Visit Overview [place] [address] [id number] 05/05/2025 Patient: JAQUELIN SZYMANSKI Sex: Female : [...] ) ALLERGIES azithromycin Excedrin Migraine latex Neosporin (daj-fis-zwbvo) HOME MEDICATIONS Aimovig Autoinjector 70 mg/mL subcutaneous [...] 05/05/25 98.0 F Temp 16:06 05/05/25 BP 11:27 05/05/25 95/75 BP 16:06 05/05/25 107/70 HR 11:27 05/05/25 87 HR 16:06 05/05/25 98 RR 11:27 05/05/25 16 RR 16:06 05/05/25 O2 Sat 11:27 05/05/25 98% RA O2 Sat 16:06 05/05/25 Pain 11:27 05/05/25 8 Pain 16:06 05/05/25 ETCO2 11:27 05/05/25 ETCO2 16:06 05/05/25 GCS 11:27 05/05/25 GCS 16:06 05/05/25 RTS 11:27 05/05/25 RTS 16:06 05/05/25 PROCEDURES NURSING INTERVENTIONS LABS / STUDIES LABS / STUDIES ORDERED 3 of 4 Visit Overview Blood Culture [[place]] # 1 Blood Culture [[place]] # 2 BNP CBC w Diff CMP CRP Lactate, Serum TSH Urinalysis CLINICAL IMPRESSION ABNORMAL TESTS; (BORDERLINE HYPOGLYCEMIA) CHRONIC GENERALIZED ABDOMINAL PAIN OF UNDETERMINED CAUSE VOMITING WITH NAUSEA 4 of 4 ED MED ADMINISTRATION DETAIL Observed: 0 05/05/2025 11:12 AM Status: F Source: [facility] Carbon Setter Medication Administration Record [address] [address] [id number] 05/05/2025 Patient: JAQUELIN SZYMANSKI Sex: Female : 1995 Age: 30y MEASUREMENTS: Wt: 84.4 kg, Ht/Osmar: 65.0 in, BMI: 30.95 ALLERGIES: Excedrin Migraine, Neosporin (kqz-wiy-xavfj), azithromycin, latex Medication Ordered Medication Administration Date/Time IV NS 0.9 % 1000 12:12 05/05 IV NS 0.9 % 1000 mL [...] Bryce Torrez R.N. Zofran IVP 4 mg 12:05/05 Zofran IVP 4 mg given via Site# 1. Allergies verified Given (NOW x1) and confirmed 5 rights. IV patency established. IV site checked: no 12:14 05/05/2025 pain, redness, or swelling. IV flushed thoroughly pre-medication Bryce Torrez administration. IVP given by nurse. - 12:14 Bryce Torrez R.N. RRicky Scanned HYDROmorphone 12:05/05 HYDROmorphone (Dilaudid) IVP 0.5 mg given via Given (Dilaudid) IVP 0.5 Site# 1. Allergies verified and confirmed 5 rights. IV patency 12:14 05/05/2025 mg (NOW x1, HIGH established. IV site checked: no pain, redness, or swelling. IV Bryce Torrez ALERT flushed thoroughly pre-medication administration. IVP given by R.N. MEDICATION) nurse. Information reviewed with patient. Verbalizes understanding. Scanned Medication Wastage: 0.5 mg wasted. - 12:14 Bryce Torrez R.N. 1 of 2 Carbon Setter Medication Ordered Medication Administration Date/Time Hydrocortisone 12:15 05/05 Hydrocortisone (Solu-Cortef) IVP 100 mg given via Given (Solu-Cortef) IVP Site# 1. Allergies verified and confirmed 5 rights. IV patency 12:05/05/2025 100 mg (NOW x1) established. IV site checked: no pain, redness, or swelling. IV Bryce Torrez flushed thoroughly pre-medication administration. IVP given by R.N. nurse. Information reviewed with patient. - 12:15 Bryce Torrez, Scanned R.N. HYDROmorphone 14:37 07 HYDROmorphone (Dilaudid) IVP 1 mg given via [...] Observed: 2024 11:12 AM Status: F Source: [facility] Nurse Narrative Nurse Clinical [address] [address] [id number] 05/05/2025 11:12:00 Patient: JAQEULIN SZYMANSKI Sex: Female : 1995 Age: 30y Disposition: Discharge to Home Disposition Decision Time: 15:57 05/05/2025 Departure Time: 16:15 05/05/2025 TRIAGE Arrived by private vehicle. Historian: (patient). Accompanied by family. Primary physician (Dr. Bradley). Triage time: 11:05/05/2025. Acuity: LEVEL 2. Chief Complaint: DIZZINESS, WEAKNESS and LIGHT HEADED and DIABETIC (hypoglycemia, headache, nausea, right rib pain). This started yesterday. The patient has had nausea and a headache. No ear pain, trouble walking, vomiting, weakness or fainting episodes. No tinnitus. SEPSIS SCREEN: NEGATIVE. SIRS criteria negative. No possible sources of infection. -- 11:05/05/25 ASIM Flower R.N. 11:05/05/25. BP: 95/75 MAP: 82. HR: 87. RR: 16. O2 saturation: 98% on room air. Temperature: 98 F (oral). Pain level now 06/01. -- 11:05/05/25 ASIM Flower R.N. Measurements: 11:05/05/25 Wt: 84.4 kg, Ht/Osmar: 65.0 in, BMI: 30.95 -- 11:05/05/25 ASIM Flower R.N. Medications: Xanax 0.5 mg tablet: 1 once a day . -- 11:05/05/25 VISHALT Nicolette Flower R.N. topiramate 25 mg tablet: 1 once a day . -- 11:05/05/25 ASIM Flower R.N. 1 of 5 Nurse Narrative lurasidone 40 mg tablet: 1 once a day . -- 11:05/05/25 ASIM Flower R.N. levothyroxine 125 mcg tablet: 1 once a day . -- 11:05/05/25 VISHALT Nicolette Flower R.N. Jardiance 10 mg tablet: 1 once a day . -- 11:05/05/25 VISHALT Nicolette Flower R.N. fludrocortisone 0.1 mg tablet: 1 once a day . -- 11:05/05/25 ASIM Flower R.N. eletriptan 40 mg tablet: 1 tablet as directed . (onset and every 2 hours) -- 11:05/05/25 ASIM Flower R.N. dexamethasone 0.5 mg tablet: 1 once a day . -- 11:05/05/25 VISHALT Nicolette Flower R.N. clomipramine 50 mg capsule: 4 capsule twice a day . (200 mg total) -- 11:05/05/25 ASIM Flower R.N. atorvastatin 10 mg tablet: 1 tablet once a day . -- 11:05/05/25 ASIM Flower R.N. Aimovig Autoinjector 70 mg/mL subcutaneous auto-injector: 1 once a month . -- 11:05/05/25 ASIM Flower R.N. Allergies: Excedrin Migraine -- 11:05/05/25 VISHALT Nicolette Flower R.N. Neosporin (vrw-ltg-sgzco) -- 11:05/05/25 VISHALT Nicolette Flower R.N. latex -- 11:05/05/25 VISHALT Nicolette Flower R.N. azithromycin -- 11:05/05/25 VISHALT Nicolette Flower R.N. Problems: Davonte's Disease -- 11:05/05/25 VISHALT Nicolette Flower R.N. Migraine Headache -- 11:05/05/25 VISHALT Nicolette Flower R.N. Grave's Disease -- 11:05/05/25 VISHALT Nicolette Flower R.N. Diabetes Mellitus Type 2 -- 11:05/05/25 ASIM Flower R.N. Seizure -- 11:05/05/25 VISHALT Nicolette Flower R.N. nonalcoholic steatohepatitis -- 11:05/05/25 VISHALT Nicolette Flower R.N. Surgeries: Gallbladder Surgery -- 11:05/05/25 ASIM Flower R.N. Appendectomy -- 11:05/05/25 VISHALT Nicolette Flower R.N. -- 11:05/05/25 VISHALT Nicolette Flower R.N. Total abdominal hysterectomy -- 11:05/05/25 VISHALT Nicolette Flower R.N. History 11:05/05/25. SOCIAL HX: Never [...] assessment completed. No risk factors identified. -- 11:28 05/05/25 EDT Nicolette Flower R.N. Interventions 11:08 05/05/25. Advanced care plan. Patient does not have advanced directive. -- 11:28 05/05/25 EDT Nicolette Flower R.N. PHYSICAL ASSESSMENT 11:48 05/05/25. ( [...] MAP: 84 mmHg. HR: 84 bpm. -- 16:23 05/05/25 EDT Bryce Torrez R.N. 12:12 05/05/25. IV NS 0.9 % 1000 mL started in bag#1 1000 mL at 999 mL/hr via Site# 1. Allergies verified and confirmed 5 rights. IV patency established. IV site checked: no pain, redness, or swelling. IV flushed thoroughly pre-medication administration. Information reviewed with patient. -- 12:14 05/05/25 EDT Bryce Torrez R.N. 12:05/05/25. HYDROmorphone (Dilaudid) IVP 0.5 mg given via Site# 1. Allergies verified and confirmed 5 rights. IV patency established. IV site checked: no pain, redness, or swelling. IV flushed thoroughly pre-medication administration. IVP given by nurse. Information reviewed with patient. Verbalizes understanding. Medication Wastage: 0.5 mg wasted. -- 12:14 05/05/25 EDT Bryce Torrez R.N. 3 of 5 [...] MAP: 79 mmHg. HR: 87 bpm. -- 16:05/05/25 EDT Bryce Torrez R.N. 12:53 05/05/25. Call [...] MAP: 80 mmHg. HR: 85 bpm. -- 16:24 05/05/25 EDT Angelique MonroeNKaye 13:51 05/05/25. BP: 117/74 MAP: 85 mmHg. HR: 88 bpm. -- 16:24 05/05/25 EDT Angelique MonroeNKaye 14:36 05/05/25. BP: 117/75 MAP: 88 mmHg. HR: 81 bpm. -- 16:24 05/05/25 EDT Angelique MonroeNKaye 14:37 05/05/25. HYDROmorphone (Dilaudid) IVP 1 mg given via Site# 1. Allergies verified and confirmed 5 rights. IV patency established. IV site checked: no pain, redness, or swelling. IV flushed thoroughly pre-medication administration. Information reviewed with patient. -- 14:39 05/05/25 EDT Bryce Torrez R.N. 14:51 05/05/25. BP: 118/64 MAP: 82 mmHg. HR: 88 bpm. -- 16:24 05/05/25 EDT Bryce Torrez R.N. 14:53 05/05/25. IV [...] MAP: 78 mmHg. HR: 83 bpm. -- 16:24 05/05/25 EDT Bryce Torrez R.N. 15:21 05/05/25. BP: [...] / DISCHARGE 4 of 5 Nurse Narrative 12:05/05/25. Site #1 started in the right antecubital [...] Patient verbalized understanding. Written instructions provided in Moroccan. The patient was discharged by the physician. The patient was discharged home and accompanied by spouse. The patient left ambulatory and via private vehicle. Spouse driving. -- 16:33 05/05/25 EDT Bryce Torrez R.N. 16:15 05/05/25. Site #1 removed upon discharge. Bandage applied. -- 16:31 05/05/25 EDT Bryce Torrez R.N. (Electronically signed by Bryce Torrez R.N. 05/05/25 18:26:13 EDT) Generated by [facility] 5 of 5 ED PHYSICIAN CLINICAL REPORT Observed: 0 05/05/2025 11:12 AM Status: F Source: [facility] Narrative Physician Clinical Narrative [address] [place] [address] [phone] 05/05/2025 11:12:00 Patient: JAQUELIN SZYMANSKI Sex: Female [...] for abdominal pain related issues does have Warren's disease diabetes. Warren's Disease Diabetes Mellitus Type 2 Grave's Disease [...] Migraine latex 2 of 10 Narrative Neosporin (tbh-rww-zwuyr) SOCIAL HISTORY Does not use tobacco. No [...] 1.50 - 7.10 Final EDT 05/05/2025 12:42 [place] # 0.65 x10/UL 0.20 - 1.00 Final [...] pain. She does have a history of Davonte's. Appears minimally hypovolemia but not severely dehydrated. [...] Vomiting with nausea. Abnormal tests; (borderline hypoglycemia). Warren's disease. DISCHARGE INSTRUCTIONS Warnings: GENERAL WARNINGS: Return [...] Rizzo M.D. 05/05/25 16:42:43 EDT) Generated by [facility] 10 of 10 ED ORDER SHEET (CPOE ONLY) Observed: 11:12 AM Status: F Source: [facility] Order Sheet Order Sheet [place] [id number] [place] [address] [phone] 05/05/2025 Patient: JAQUELIN SZYMANSKI Sex: Female : 1995 Age: 30y MEASUREMENTS: Wt: 84.4 kg, Ht/Osmar: 65.0 in, BMI: 30.95 ALLERGIES: Excedrin Migraine, Neosporin (xqq-fla-hswfq), azithromycin, latex MEDICATION/IV/DRIP/FLUID ORDERS Order Description Priority Entered Acknowledged Completed IV NS 0.9 %1000 mL at 999 11:52 05/05/2025 11:55 12:14 mL/hr (NOW x1) Leandro Rizzo M.D. 05/05/2025 05/05/2025 Bryce Monroe, R.N. R.N. Zofran IVP4 mg (NOW x1) 11:52 05/05/2025 11:55 12:14 Leandro Rizzo M.D. 05/05/2025 05/05/2025 Bryce Monroe, Jani.N. R.N. HYDROmorphone (Dilaudid) 11:52 05/05/2025 11:55 12:14 IVP0.5 mg (NOW x1, HIGH Leandro Rizzo M.D. 05/05/2025 05/05/2025 ALERT MEDICATION) Bryce Monroe R.N. R.N. Reason for ordering with alerts: Benefits outweigh risks --11:52 05/05/2025 Leandro Rizzo M.D. Hydrocortisone (Solu-Cortef) 11:52 05/05/2025 11:55 12:15 [id number] mg (NOW x1) Leandro Rizzo M.D. 05/05/2025 05/05/2025 Bryce Monroe R.N. R.N. 1 of 3 Order Sheet HYDROmorphone (Dilaudid) 14:34 05/05/2025 14:35 14:39 IVP1 mg (NOW x1, HIGH ALERT Leandro Rizzo M.D. 05/05/2025 05/05/2025 MEDICATION) Bryce Monroe R.N. R.N. Reason for ordering with alerts: [...] 05/05/2025 Lyric Sierra Cameron Yoder, R.N. RCarmel. CMP Stat Stat 11:51 05/05/2025 11:54 05/05/2025 12:30 05/05/2025 Lyric Sierra Cameron Yoder, R.N. RKayeN. Blood Culture Stat 11:51 05/05/2025 11:54 05/05/2025 12:30 05/05/2025 [Nba] # 1 Stat Lyric Sierra Cameron Yoder, R.N. RKayeN. Blood Culture Stat 11:51 05/05/2025 11:54 05/05/2025 13:33 05/05/2025 [Nba] # 2 Stat Lyric Sierra Cameron Yoder, R.N. RKayeNKaye BNP Stat Stat 11:51 05/05/2025 11:54 05/05/2025 12:30 05/05/2025 Lyric Sierra Cameron Yoder, R.N. RRicky 2 of 3 Order Sheet Urinalysis Stat Stat 11:51 05/05/2025 11:55 05/05/2025 Lyric Sierra R.N. CRP Stat Stat 11:51 05/05/2025 11:54 05/05/2025 12:30 05/05/2025 Lyric Sierra Cameron Yoder, R.N. RRicky TSH Stat Stat 11:51 05/05/2025 11:55 05/05/2025 12:30 05/05/2025 Lyric Sierra Cameron Yoder, R.N. R.N. Lactate, Serum Stat Stat 11:51 05/05/2025 11:54 05/05/2025 12:30 05/05/2025 Lyric Sierra Cameron Yoder, R.N. RRicky DIAGNOSTIC STUDY ORDERS Order Description Priority Entered Acknowledged Completed STAFF ORDERS Order Description Priority Entered Acknowledged Collected Completed [Electronically signed by Leandro Rizzo M.D. (05/05/2025 16:42 EDT)] 3 of 3 ED SUPER BILL Observed: 05/05/2025 11:12 AM Status: F Source: [address] [id number] 05/05/2025 Patient: JAQUELIN SZYMANSKI Sex: Female : 1995 Age: 30y Item Facility Professional Category Description Code Code Quantity Fee Total Drugs Normal Saline 147860 2 $0.00 $0.00 1000cc (036436) Nurse/E/M EMERGENCY 891538 1 $0.00 $0.00 DEPARTMENT VISIT HIGH/URGENT SEVERITY (27487-66) Nurse/IV/IM/Infusions Hydration 363884 2 $0.00 $0.00 additional hour (91565) Nurse/IV/IM/Infusions IVP additional 247291 2 $0.00 $0.00 push (08949) Nurse/IV/IM/Infusions IVP initial 771891 1 $0.00 $0.00 (78704) Nurse/IV/IM/Infusions IVP same med 017677 1 $0.00 $0.00 (31 min apart) (69515) Grand Total $0.00 1 of 2 Superbill Providers Leandro Rizzo M.D. Chief Complaint ABDOMINAL PAIN. Principal Diagnosis Chronic generalized abdominal pain of undetermined cause. Vomiting with nausea. Abnormal tests; (borderline hypoglycemia). Warren's disease. ICD-10 Codes R10.84: Generalized abdominal pain R11.2: Nausea with vomiting, unspecified 2 of 2 ED VITALS FLOW SHEET Observed: 11:12 AM Status: F Source: [facility] Vitals Vital Sign Flow Sheet [address] [place] [address] [id number] 05/05/2025 Patient: JAQUELIN SZYMANSKI Sex: Female : [...] Observed: 04/02/2025 2:00 PM Status: COMPLETED Source: [facility] HNO ID: [id number] Author: TRINA DAILY APRN.LAB ASSISTANT Service: ? Author Type: Nurse Practitioner Type: [...] visit. Either the patient or their legal inside sales representative has been informed of the risks and benefits of -- and alternatives to -- treatment through a remote evaluation and consents to proceed with the evaluation remotely. Recording using ambient Salemarked software for draft documentation of the visit was discussed with the patient/authorized inside sales representative; all questions welcomed and answered. Patient/authorized inside sales representative agreed to proceed Reason for Visit: [...] bowel prep, will need repeated EGD W/O [facility] SPEC VARICIES INJ 09/21/2021 EXTRACTION ERUPTED TOOTH [...] by mouth three times daily with meals. 60383 mL 5 Blood-Glucose Meter Use to check [...] Observed: 2025 9:10 AM Status: COMPLETED Source: [facility] ID: [id number] Author: KEVIN BRADLEY MD Service: ? Author Type: Physician Type: Progress Notes Filed: 2025 09:32 Note Text: Malia is a 30-year-old female with a history of Warren's disease, hypothyroidism, depression, and anxiety, presenting for a hospital follow-up after an adrenal crisis. Virtual Visit (Audio/Visual)I have discussed the nature of this visit with the patient which will occur via [facility] (Phone, Virtual Visit) and she agrees to proceed with this interaction. HPI Adrenal Crisis: - Hospitalized at [facility] from 02/16 to 02/20 for suspected adrenal [...] Anxiety: - Managed by Bárbara Daily, Psych, AVIATION SUPPORT EQUIPMENT REPAIRER; Malia is adherent to medications. - Recent [...] Z-geri - unsure which caused the anaphylaxis Jgk-Uiagfgausmmqm-M* Anaphylaxis Excedrin [Acetamino* Swelling Mouth, can take [...] bowel prep, will need repeated EGD W/O [facility] SPEC VARICIES INJ 09/21/2021 EXTRACTION ERUPTED TOOTH [...] Diabetic Foot Exam due on 08/09/2023 Covid-19 Vaccine(2023-) due on 06/23/2024 LDL Cholesterol due on [...] Adrenal crisis (HCC) (E27.2) 2. Adrenal insufficiency (Warren's disease) (HCC) (E27.1) - Recent hospitalization from [...] Declines covid testing. - Advised use of uzlr-pme-yfxvtaz cough and cold medications. - Monitor for [...] to patient) Kevin Bradley MD Recording using [employer] software for draft documentation of the visit was discussed with the patient/authorized inside sales representative; all questions welcomed and answered. Patient/authorized inside sales representative agreed to proceed MARIXA Observed: 02/12/2025 12:00 AM Status: COMPLETED Source: [facility] Telephone (PSWSTR) JAQUELIN SZYMANSKI ([id number]) 1995 F Date Time Provider Department 02/12/25 TRINA DAILY PSWSTR During your visit today, we recorded the following information about you: Dang Mayen RN 02/12/2025 8:09 AM Signed Pt calling [...] Z-geri - unsure which caused the anaphylaxis OHZ-ZCYVHBVORTMMM-CBEQ-BUFFERS 02/27/2017 10 - Anaphylaxis EXCEDRIN (ACETAMINOPHEN-CAFFEINE) 06/05/2013 7 - Swelling Comments: Mouth, can take tylenol LATEX 07/08/2014 2 - Rash 4 - Hives Comments: at site NEOSPORIN (OAGDBJDE-SFLPRPQTDK-HT*04/21/2014 4 - Hives VOLTAREN (DICLOFENAC SODIUM) 09/29/2014 [...] Observed: 02/03/2025 9:57 AM Status: F Source: [place] [address] Patient: JAQUELIN SZYMANSKI Phone#: : 1995 Age: 29 Gender: F Pt. Type: ER Account: [id number] Location: [facility] Ordering: KEVIN GARCIA Exam Date: 02/02/2025/19:15 Family Phys: KEVIN BRADLEY Charge Code: 265572 Physician: [place] Order #: [id number] Dose#: PROCEDURE: X-RAY ELBOW RT MIN 3 VIEWS COMPARISON: [facility], XR, FOOT LT COMPLETE, 08/22/2023, 20:19. INDICATIONS: [...] dictation time shown below. Dictated by: Hailee Alicea MD on 02/03/2025 at 9:31 Approved by: Hailee Alicea MD on 02/03/2025 at 9:56 ED SUPER BILL Observed: 02/02/2025 6:35 PM Status: C [facility] [address] [place] [address] [id number] 02/02/2025 Patient: JAQUELIN SZYMANSKI Sex: Female : 1995 Age: 29y Item Professional Category Description Facility Code Code Quantity Fee Total Nurse/E/M EMERGENCY 016663 1 $0.00 $0.00 DEPARTMENT VISIT MODERATE SEVERITY (87330-25) Grand Total $0.00 Providers Kevin Garcia D.O. [...] emergency department. she has a history of Warren's disease. Actually, the patient states she is [...] much baseline for her. 1 of 2 [facility] Principal Diagnosis Acute traumatic pain in the [...] 0 02/02/2025 6:35 PM Status: C Source: [facility] Carbon Setter Medication Administration Record [facility] [address] [place] [address] [id number] 02/02/2025 Patient: JAQUELIN SZYMANSKI Sex: Female : 1995 Age: 29y MEASUREMENTS: Wt: 84.4 kg, Ht/Osmar: 66.0 in, BMI: 30.02 ALLERGIES: Excedrin Migraine, Neosporin (hvt-bow-yixrq), azithromycin, latex Medication Ordered Medication Administration Date/Time [...] SHEET Observed: 6:35 PM Status: C Source: [facility] Vitals Vital Sign Flow Sheet [address] [place] [address] [phone] 02/02/2025 Patient: JAQUELIN SZYMANSKI Sex: Female : [...] Observed: 2024 6:35 PM Status: C Source: [facility] Nurse Narrative Nurse Clinical Narrative [facility] [address] [place] [address]. [place] [address] [phone] 02/02/2025 18:35:00 Patient: JAQUELIN SZYMANSKI Sex: Female [...] rate greater than 90. -- 18:42 02/02/25 ASIM Abbasi R.N. 18:41 02/02/25. BP: 124/88 MAP: [...] once a day . -- 18:40 02/02/25 ASIM Abbasi R.N. topiramate 25 mg tablet: 1 once a day . -- 18:40 02/02/25 ASIM Abbasi R.N. 1 of 4 Nurse Narrative lurasidone 40 mg tablet: 1 once a day . -- 18:40 02/02/25 ASIM Abbasi R.N. levothyroxine 125 mcg tablet: 1 once a day . -- 18:40 02/02/25 ASIM Abbasi R.N. Jardiance 10 mg tablet: 1 once a day . -- 18:40 02/02/25 VISHALT Sosa Abbasi R.N. fludrocortisone 0.1 mg tablet: 1 once a day . -- 18:40 02/02/25 ASIM Abbasi R.N. eletriptan 40 mg tablet: 1 tablet as directed . (onset and every 2 hours) -- 18:40 02/02/25 ASIM Abbasi R.N. dexamethasone 0.5 mg tablet: 1 once a day . -- 18:40 02/02/25 ASIM Abbasi R.N. clomipramine 50 mg capsule: 4 capsule twice a day . (200 mg total) -- 18:40 02/02/25 EDT Soas Abbasi R.N. atorvastatin 10 mg tablet: 1 tablet once a day . -- 18:40 02/02/25 EDT Sosa Abbasi R.N. Aimovig Autoinjector 70 mg/mL subcutaneous auto-injector: 1 once a month . -- 18:40 02/02/25 EDT Sosa Abbasi R.N. Allergies: Excedrin Migraine -- 18:40 02/02/25 EDT Sosa Abbasi R.N. Neosporin (ovi-xgb-vfrkx) -- 18:40 02/02/25 EDT Sosa Abbasi R.N. latex -- 18:40 02/02/25 EDT Sosa Abbasi R.N. azithromycin -- 18:40 02/02/25 EDT Sosa Abbasi R.N. 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 Migraine Headache -- 18:40 02/02/25 EDT Sosa Abbasi R.N. Grave's Disease -- 18:40 02/02/25 EDT Sosa Abbasi R.N. Diabetes Mellitus Type 2 -- 18:40 02/02/25 EDT Sosa Abbasi R.N. Seizure -- 18:40 02/02/25 VISHALT Sosa Abbasi R.N. ADDITIONAL SURGERIES: Gallbladder Surgery -- 18:40 02/02/25 EDT Sosa Abbasi R.N. Appendectomy -- 18:40 02/02/25 EDT Sosa Abbasi R.N. -- 18:40 02/02/25 EDT Sosa Abbasi R.N. Total abdominal hysterectomy -- 18:40 02/02/25 EDT Sosa Abbasi R.N. History 18:38 02/02/25. PAST [...] prevention information. Verbalizes understanding. -- 18:42 02/02/25 EDT Sosa Abbasi R.N. Interventions 18:38 02/02/25. Advanced care [...] Patient transported to radiology by stretcher with radiologic technology teacher. -- 19:27 02/02/25 EDT Ingrid Aguilar R.N. 19:27 02/02/25. Patient returned from radiology by stretcher with radiologic technology teacher. -- 19:27 02/02/25 EDT Ingrid Aguilar R.N. 3 of 4 Nurse Narrative 19:28 02/02/25. ( Pt c/o increased pain to her right elbow. Reported to Dr. Garcia.). -- 19:28 02/02/25 EDT Ingrid Aguilar R.N. 19:02/02/25. ED physician at the patient's bedside (19:02/02/2025). -- 19:33 02/02/25 EDT Ingrid Aguilar R.N. [...] R.N. 19:43 02/02/25. ( VS reported to .). -- 23:39 02/02/25 EDT Ingrid Aguilar R.N. [...] Patient verbalized understanding. Written instructions provided in Moroccan. The patient was discharged home. The patient left ambulatory and via private vehicle. Spouse driving. -- 20:55 02/02/25 EDT Sosa Abbasi R.N. (Electronically signed by Ingrid Aguilar R.N. 02/03/25 06:56:37 EDT) Generated by [facility] 4 of 4 ED VISIT SUMMARY Observed: 02/02/2025 6:35 PM Status: C Source: [facility] Visit Overview Visit Overview [address] [place] [address] [id number] 02/02/2025 Patient: JAQUELIN SZYMANSKI Sex: Female : [...] pain) ALLERGIES azithromycin Excedrin Migraine latex Neosporin (mke-mwy-bukla) 1 of 4 Visit Overview HOME MEDICATIONS [...] day . PAST MEDICAL HISTORY / PROBLEMS Warren's Disease Diabetes Mellitus Type 2 Grave's Disease [...] Temp 18:38 02/02/25 Temp 20:50 02/02/25 BP 18:02/02/25 124/88 BP 20:50 02/02/25 HR 18:02/02/25 72 HR 20:50 02/02/25 RR 18:02/02/25 RR 20:50 02/02/25 16 O2 Sat 18:38 [...] ONLY) Observed: 6:35 PM Status: C Source: [facility] Order Sheet Order Sheet [address] [place] [address] [id number] 02/02/2025 Patient: JAQUELIN SZYMANSKI Sex: Female : 1995 Age: 29y MEASUREMENTS: Wt: 84.4 kg, Ht/Osmar: 66.0 in, BMI: 30.02 ALLERGIES: Excedrin Migraine, Neosporin (wie-vzh-aduhw), azithromycin, latex MEDICATION/IV/DRIP/FLUID ORDERS Order Description Priority Entered Acknowledged Completed OxyCODONE-APAP 5-325 20:00 02/02/2025 20:25 20:28 (Percocet) PO1 tab (NOW x1, Kevin Garcia, 02/02/2025 02/02/2025 HIGH ALERT MEDICATION) Ken Abbasi, Sosa Abbsai, R.N. R.N. Reason for ordering with alerts: Benefits outweigh risks --20:00 02/02/2025 Kevin Garcia D.O. OxyCODONE-APAP 5-325 20:00 02/02/2025 20:25 20:44 (Percocet) PO2 tab (NOW x1Kevin, 02/02/2025 02/02/2025 HIGH ALERT MEDICATION) Sosa [place] R.N. R.N. Order Comments: 20:00 02/02/2025: (to go) Kevin [...] 02/02/2025 Sosa Hampton Katelyn Horst, D.O. R.N. RRicky DIAGNOSTIC STUDY ORDERS Order Description Priority Entered Acknowledged Completed Elbow R Complete Stat Stat 19:11 02/02/2025 19:12 20:28 Kevin Garcia 02/02/2025 02/02/2025 Sosa Wall R.NKaye RRicky Order Comments: 19:11 02/02/2025: Status: Not . [...] 0 02/02/2025 6:35 PM Status: C Source: [facility] Narrative Physician Clinical Narrative [address] [address] [phone] 02/02/2025 18:35:00 Patient: JAQUELIN SZYMANSKI Sex: Female : 1995 Age: 29y Disposition: Discharge to Home Disposition Decision Time: 20:47 02/02/2025 Departure Time: 20:52 02/02/2025 Measurements Wt: 84.4 kg, Ht/Osmar: 66.0 in, BMI: 30.02 Initial Vital Sign [...] Not . PAST HISTORY See nurses notes. Warren's Disease Diabetes Mellitus Type 2 Grave's Disease [...] . Allergies: azithromycin Excedrin Migraine latex Neosporin (cty-itz-kowpu) 2 of 5 Narrative SOCIAL HISTORY Never [...] she has a history of Davonte's disease. 3 of 5 Narrative Actually, the [...] level. Wear sling. Follow-up with: Lyndon Story MD,[facility], [facility], Orthopedic, Phone: [phone], [facility] [place] [phone]. (Rest. ice 15 minutes every 4-6 hours. return if increasing pain tingling or any concerns. do qjsnf-wl-ukbzbw exercises which were demonstrated 10 reps every [...] 15:58:18 EDT Kevin Garcia D.O. Generated by [facility] 5 of 5 PROGRESS Observed: 01/01/2025 2:00 PM Status: COMPLETED Source: [facility] HNO ID: [id number] Author: TRINA DAILY APRN.LAB ASSISTANT Service: ? Author Type: Nurse Practitioner Type: [...] visit. Either the patient or their legal inside sales representative has been informed of the risks [...] focused. Is going to reach out to [facility] as she had a good experience there [...] bowel prep, will need repeated EGD W/O [facility] SPEC VARICIES INJ 09/21/2021 EXTRACTION ERUPTED TOOTH 08/2015 HYSTERECTOMY 08/13/2020 LAPAROSCOPIC CHOLECYSTECTOMY 06/09/2021 Byron Story REMOVAL OF OVARY(S) Right 12/28/2020 Dr Chavez THYROIDECTOMY TOTAL/COMPLETE 2015 [facility] / [facility] VAGINAL HYSTERECTOMY ALLERGIES Allergen Reactions Prednisone Anaphylaxis Had at the same time as Z-geri - unsure which caused the anaphylaxis Bba-Adaucbidevruh-R* Anaphylaxis Excedrin [Acetamino* Swelling Mouth, can take [...] stressors Major depressive disorder, recurrent episode, moderate ([facility]) GAF: -60-51 Moderate symptoms or moderate difficulty [...] help address depressive symptoms. [facility] focused [facility]. Complete [...] 1 [facility] Risk: Moderate: Moderate risk from testing/treatment and Drug management Medical Decision Making Level: 5 - High ADD ON PSYCHOTHERAPY CODE : No SIGNATURE: Trina Daily APRN.CNP PATIENT NAME: Jaquelin Szymanski DATE: January 01, 2025 TIME: 2:00 PM PROGRESS Observed: 12/18/2024 10:52 AM Status: COMPLETED Source: [facility] ID: [id number] Author: KEVIN BRADLEY MD Service: ? Author [...] visit. Either the patient or their legal inside sales representative has been informed of the risks [...] by mouth daily with breakfast. Blood-Glucose Sensor (MyWobileYLE CECILY 3 SENSOR) eliseo 1 Each every [...] Z-geri - unsure which caused the anaphylaxis Ghu-Akwtabpjdfvnt-F* Anaphylaxis Excedrin [Acetamino* Swelling Mouth, can take [...] bowel prep, will need repeated EGD W/O [facility] SPEC VARICIES INJ 09/21/2021 EXTRACTION ERUPTED TOOTH 08/2015 HYSTERECTOMY 08/13/2020 LAPAROSCOPIC CHOLECYSTECTOMY 06/09/2021 Byron Story REMOVAL OF OVARY(S) Right 12/28/2020 Dr Chavez THYROIDECTOMY TOTAL/COMPLETE 2016 [facility] / [facility] VAGINAL HYSTERECTOMY FAMILY [...] at some point for a check up. MARIXA Observed: 12/17/2024 12:00 AM Status: COMPLETED Source: [facility] Telephone (FAMPWS) NESSAJAQUELIN ([id number]) 1995 F Date Time Provider Department 12/17/24 KEVIN BRADLEY [facility] During your visit today, we recorded [...] Z-geri - unsure which caused the anaphylaxis ZHD-XABYPEJIJIAPB-MBII-BUFFERS 02/27/2017 10 - Anaphylaxis EXCEDRIN (ACETAMINOPHEN-CAFFEINE) 06/05/2013 7 - Swelling Comments: Mouth, can take tylenol LATEX 07/08/2014 2 - Rash 4 - Hives Comments: at site NEOSPORIN (VFNJIYEA-MSDVQKLNCG-DF*04/21/2014 4 - Hives VOLTAREN (DICLOFENAC SODIUM) 09/29/2014 [...] 03/20/2021 Recurrent major depression in partial remission*03/21/2021 Warren's disease (HCC) [E27.1] 09/07/2021 11/18/2022 Vertigo [R42] [...] [R76.8] 01/15/2022 Paresthesias [R20.2] 01/15/2022 Adrenal insufficiency (Warren's disease) (HCC)*08/14/2022 SLE (systemic lupus erythematosus related [...] Observed: 11/20/2024 1:34 PM Status: COMPLETED Source: [facility] ID: [id number] Author: TRINA DAILY APRN.LAB ASSISTANT Service: ? Author Type: Nurse Practitioner Type: [...] visit. Either the patient or their legal inside sales representative has been informed of the risks [...] providers. Is going to reach out to [facility] to start trauma focused therapy. Has had good experience in the past with [facility] as she went there for therapy when [...] bowel prep, [facility] 09/21/2021 EXTRACTION ERUPTED TOOTH 08/2015 HYSTERECTOMY 08/13/2020 LAPAROSCOPIC CHOLECYSTECTOMY 06/09/2021 Byron Story REMOVAL OF OVARY(S) Right 12/28/2020 Dr Chavez THYROIDECTOMY TOTAL/COMPLETE 2016 [facility] / [facility] VAGINAL HYSTERECTOMY ALLERGIES Allergen Reactions Prednisone Anaphylaxis Had at the same time as Z-geri - unsure which caused the anaphylaxis Zel-Nyyaukrzaokoz-B* Anaphylaxis Excedrin [Acetamino* Swelling Mouth, can take [...] focused. Is going to reach out to [facility] as she had a good experience there [...] ed: 11/10/2024 5:15 PM Status: F Source: [facility] TYPE CODE TESTS RESULT OUT OF RANGE REFERENCE UNITS LAB SARS ANTIGEN(LOINC) SARS ANTIGEN NEGATIVE NORMAL: NEGATIVE LAB INTERNAL CONTROL(LOINC) INTERNAL CONTROL PASS LAB EXTERNAL QC DONE?(LOINC) EXTERNAL QC DONE? YES LAB SEND TO IC?(LOINC) SEND TO IC? NO Result Comment: SARS-CoV-2 THIS TEST IS BEING USED UNDER THE FDA EUA PROCEDURE. THIS ASSAY HAS BEEN VALIDATED AT [facility] FOR USE WITH NASAL AND NASOPHARYNGEAL SWAB [...] WITH PUBLIC HEALTH AUTHORITIES. Performed By: #### [id number] ## ## [facility],[address] [place], [place] [id number] INFLUENZA VIRUS RAPID A/B Observed: 10/23 4:05 PM Status: F Source: [facility] INFLUENZA A POSITIVE CALLED TO ANDERSON BY NIDIA AT 16:58 INFLUENZA B NEGATIVE [...] DAYS. RESULT CRITICAL? NO Performed By: #### [id number] ## ## [facility],[address] [place] [address] ED NURSES CLINICAL NOTE Observed: 2024 3:13 PM Status: F Source: [facility] Nurse Narrative Nurse Clinical Narrative [address] [place] [address] [phone] 11/10/2024 Patient: JAQUELIN SZYMANSKI Sex: Female : [...] negative. Possible sources of infection: COVID-19. -- 15:11/10/24 TOMAS Rodríguez R.N. 15:11/10/24. BP: 127/85 MAP: [...] Migraine -- 15:11/10/24 TOMAS Rodríguez R.N. Neosporin (zzv-itf-amxaw) -- 15:11/10/24 TOMAS Rodríguez R.N. latex -- 15:11/10/24 EST Brianna Rodríguez, R.N. azithromycin -- 15:17 11/10/24 TOMAS Rodríguez R.N. Problems: Warren's Disease -- 15:11/10/24 TOMAS Rodríguez R.N. Migraine Headache -- 15:11/10/24 TOMAS Rodríguez R.N. Grave's Disease -- 15:11/10/24 TOMAS Rodríguez R.N. Diabetes Mellitus Type 2 -- 15:11/10/24 TOMAS Rodríguez R.N. Seizure -- 15:11/10/24 TOMAS [...] discussed with patient (Full Code). -- 15:11/10/24 TMOAS Rodríguez R.N. PHYSICAL ASSESSMENT 16:11/10/24. GENERAL / [...] warm and dry. Normal skin turgor. -- 16:08 11/10/24 TOMAS Abbasi R.N. 16:06 11/10/24. Pain level [...] mmHg. HR: 70 bpm. -- 18:17 11/10/24 EST Sosa Abbasi R.N. 18:04 11/10/24. HR: 71 bpm. O2 saturation: 100%. -- 18:17 11/10/24 EST Sosa Abbasi R.N. Cardiac rhythm: normal sinus rhythm. Departure time: 18:16 11/10/2024. Condition at departure: stable. No learning barriers present. Discharge instructions provided and reviewed with the patient. Patient verbalized understanding. Written instructions provided in Moroccan. The patient was discharged home. The patient left ambulatory and via private vehicle. -- 18:18 11/10/24 EST Sosa Abbasi R.N. (Electronically signed by Sosa Abbasi R.N. 11/10/24 18:18:47 EST) Generated by [facility] 4 of 4 ED VITALS FLOW SHEET Observed: 3:13 PM Status: F Source: [facility] Vitals Vital Sign Flow Sheet [address] [address] [phone] 11/10/2024 Patient: JAQUELIN SZYMANSKI Sex: Female : [...] Observed: 11/10/2024 3:13 PM Status: F Source: [facility] Visit Overview Visit Overview [place] [address] [place] [address] [phone] 11/10/2024 Patient: JAQUELIN SZYMANSKI Sex: Female : [...] ) ALLERGIES azithromycin Excedrin Migraine latex Neosporin (htt-mtc-wqmmg) HOME MEDICATIONS 1 of 4 Visit Overview [...] a day. PAST MEDICAL HISTORY / PROBLEMS Davonte's Disease Diabetes Mellitus Type 2 Grave's Disease Migraine Headache No menstrual periods Seizure PAST SURGICAL HISTORY Appendectomy Gallbladder Surgery Total abdominal hysterectomy SOCIAL HISTORY Smoking status: No Alcohol use: No Drug use: No ED COURSE MEDICATIONS GIVEN IN EMERGENCY DEPARTMENT 16:11 11/10/24 Ondansetron ODT PO 4 mg 2 of 4 Visit Overview 16:12 11/10/24 KetorOLAC (Toradol) IM 30 mg IV SITE INFORMATION INTAKE OUTPUT REASSESMENT (most recent) 16:06 11/10/24. GENERAL / NEURO / PSYCH: Alert. Oriented [...] VITAL SIGNS First Vitals Last Vitals Temp 15:17 11/10/24 Temp 18:09 11/10/24 BP 15:17 11/10/24 127/85 BP 18:09 11/10/24 HR 15:17 11/10/24 70 HR 18:09 11/10/24 74 RR 15:17 11/10/24 RR 18:09 11/10/24 O2 Sat 15:17 11/10/24 O2 Sat 18:09 [...] Observed: 11/10/2024 3:13 PM Status: F Source: [facility] Discharge Instructions Discharge Summary [address] [place] [address] [phone] 11/10/2024 Patient: JAQUELIN SZYMANSKI Sex: Female : 1995 Age: 29y Thank you for visiting [facility]. You have been evaluated today by Rodney Rodri, D.O. for the following condition(s): Principal Diagnosis Influenza type A with upper respiratory infection. INSTRUCTIONS Off work for 3 days. Prescription Medications: ondansetron 4 mg disintegrating tablet: Take 1 tablet on tongue every eight hours for nausea/vomiting for 5 days, dispense 15 tablet. Refills 0. Pharmacy: [id number] - [address] [place] [address]. Follow-up: Follow up with your healthcare provider. Follow up with doctor. Understanding of the discharge instructions verbalized by patient. You have been given the following additional information: Influenza (Adult) 1 of 5 Discharge Instructions Patient Signature Facility [facility] [employer] Date/Time General Instructions with ExitWriter [place] [address] [place] [address] [phone] 11/10/2024 Patient: JAQUELIN SZYMANSKI Sex: Female : 1995 Age: 29y Thank you for visiting [facility]. You have been evaluated today by Rodney Mace D.O. for the following condition(s): Principal Diagnosis Influenza type A with upper respiratory infection. INSTRUCTIONS Off work for 3 days. Prescription Medications: ondansetron 4 mg disintegrating tablet: Take 1 tablet on tongue every eight hours for nausea/vomiting for 5 days, dispense 15 tablet. Refills 0. Pharmacy: [id number] - [address] [place] [address]. Follow-up: Follow up with your healthcare provider. [...] loosen secretions in your nose and lungs. Tyda-jxb-navrwte cold medicines will not make the flu [...] steroids and certain anti-inflammatory medicines. Activities Restrictions [address] [address] [phone] 11/10/2024 Patient: JAQUELIN SZYMANSKI Sex: Female : 1995 Age: 29y You have been given the following instructions regarding activity, work, and/or school. Off work for 3 days. Facility [facility] 5 of 5 ED PHYSICIAN CLINICAL REPORT Observed: 0 11/10/2024 3:13 PM Status: F Source: [facility] Narrative Physician Clinical Narrative [address] [address] [phone] 11/10/2024 Patient: JAQUELIN SZYMANSKI Sex: Female : [...] urination. ALLERGY/IMMUNO: No hay fever. PAST HISTORY Warren's Disease Diabetes Mellitus Type 2 Grave's Disease [...] day. Allergies: azithromycin Excedrin Migraine latex Neosporin (nxm-buj-vjcry) SOCIAL HISTORY 2 of 8 Narrative No [...] PROCEDURE. THIS ASSAY HAS BEEN VALIDATED AT [facility] FOR USE WITH NASAL AND NASOPHARYNGEAL SWAB SPECIMENS. INTERPRETIVE DATA TEST RESULTS SHOULD ALWAYS BE CONSIDERED IN THE CONTEXT OF CLINICAL OBSERVATIONS AND EPIDEMIOLOGICAL DATA IN MAKING FINAL DIAGNOSIS AND PATIENT MANAGEMENT DECISIONS. PATIENT MANAGEMENT SHOULD FOLLOW CURRENT CDC GUIDELINES. THE ANATOLIY SARS 4 of 8 ANTIGEN LESTER DOES NOT Narrative INFLUENZA VIRUS RAPID A/B Final LENROA: 11/10/2024 16:05:00 EST MsgRcvd: 11/10/2024 17:00 EST [...] days, dispense 15 tablet. Refills 0. Pharmacy: [facility] - [address] [place] [address]. Follow-up: Follow up with your healthcare provider. Follow up with doctor. Understanding of the discharge instructions verbalized by patient. (Electronically signed by Rodney Mace D.O. 11/10/24 17:54:57 EST) 7 of 8 Narrative Generated by [facility] 8 of 8 ED MED ADMINISTRATION DETAIL Observed: 0 11/10/2024 3:13 PM Status: F Source: [facility] Carbon Setter Medication Administration Record [address] [place] [address] [id number] 11/10/2024 Patient: JAQUELIN SZYMANSKI Sex: Female : 1995 Age: 29y MEASUREMENTS: Wt: 85.7 kg, Ht/Osmar: 65.0 in, BMI: 31.45 ALLERGIES: Excedrin Migraine, Neosporin (ufk-inr-qtyza), azithromycin, latex Medication Ordered Medication Administration Date/Time [...] ONLY) Observed: 3:13 PM Status: F Source: [facility] Order Sheet Order Sheet [address] [address] [id number] 11/10/2024 Patient: JAQUELIN SZYMANSKI Sex: Female : 1995 Age: 29y MEASUREMENTS: Wt: 85.7 kg, Ht/Osmar: 65.0 in, BMI: 31.45 ALLERGIES: Excedrin Migraine, Neosporin (pck-chl-hqlzh), azithromycin, latex MEDICATION/IV/DRIP/FLUID ORDERS Order Description Priority Entered Acknowledged Completed KetorOLAC (Toradol) IM30 mg 15:46 11/10/2024 16:10 16:14 (NOW x1) Rodney Mace D.O. 11/10/2024 11/10/2024 Sosa Tsai, AngeliqueN. R.N. Reason for ordering with alerts: Benefits outweigh risks --15:46 11/10/2024 Rodney Mace D.O. Ondansetron ODT PO4 mg 15:46 11/10/2024 16:10 16:12 (NOW x1) Rodney Mace D.O. 11/10/2024 11/10/2024 Sosa Tsai R.N. RKayeN. LAB ORDERS Order Description Priority Entered Acknowledged Collected Completed Rapid COVID (SARS) Stat 15:45 11/10/2024 16:05 11/10/2024 16:05 11/10/2024 ANTIGEN TEST Stat Sosa Stout Katelyn Horst, D.O. RKayeN. R.N. 1 of 2 Order Sheet Flu Swab (Influenzae Stat 15:45 11/10/2024 16:05 11/10/2024 16:05 11/10/2024 AAg) Stat Sosa Stout, Sosa Abbasi D.O. RKayeNKaye RKayeNKaye DIAGNOSTIC STUDY ORDERS Order Description Priority Entered Acknowledged Completed STAFF ORDERS Order Description Priority Entered Acknowledged Collected Completed [Electronically signed by Rodney Mace D.O. (11/10/2024 17:54 EST)] 2 of 2 ED SUPER BILL Observed: 11/10/2024 3:13 PM Status: F Source: [address] [address] [id number] 11/10/2024 Patient: JAQUELIN SZYMANSKI Sex: Female : 1995 Age: 29y Item Facility Professional Category Description Code Code Quantity Fee Total Nurse/E/M EMERGENCY 828096 1 $0.00 $0.00 DEPARTMENT VISIT HIGH/URGENT SEVERITY (27670-05) Nurse/IV/IM/Infusions IM/SQ (61426) 696009 1 $0.00 $0.00 Grand Total $0.00 Providers Rodney Mace D.O. Chief Complaint COUGH, SORE THROAT, SINUS PAIN, CHILLS and MUSCLE ACHES. Principal Diagnosis Influenza type A with upper respiratory infection. 1 of 2 [facility] ICD-10 Codes J11.1: Influenza due to unidentified influenza virus with other respiratory manifestations J06.9: Acute upper respiratory infection, unspecified 2 of 2 URINALYSIS Collected: 4 1:24 PM Status: F Source: [facility] TYPE CODE TESTS RESULT OUT OF [...] NC) Urobilinog NORM NORMAL: NORMAL LAB Sp Valier(LOINC) Sp Valier 1.025 NORMAL: 1.010-1.030 LAB Nitrite(LOINC) Nitrite NEG [...] LAB Yeast(LOINC) Yeast NONE Performed By: #### [id number] ## ## [facility],[address] [place] [address] CBC + DIFF Collected: 4 11:53 AM Status: F Source: [facility] TYPE CODE TESTS RESULT OUT OF [...] 4.22 1.50 - 7.10 x10EE3 /UL LAB [place] #(LOINC) [place] # 0.59 0.20 - 1.00 x10EE3 /UL LAB EO #(LOINC) EO # 0.02 0.00 - 0.50 x10EE3/U L LAB Baso #(LOINC) Baso # 0.03 0.00 - 0.10 x10EE3 /UL LAB MANUAL DIFF(LOINC) MANUAL DIFF N/A LAB MORPHOLOGY(KARMA NC) MORPHOLOGY N/A Performed By: #### [id number] ## ## [place] [address] TROPONIN Collected: 11:53 AM Status: F Source: [facility] TYPE CODE TESTS RESULT OUT OF RANGE REFERENCE UNITS LAB HS TROPONIN(INC) HS TROPONIN <4.0 0.0 - 51.4 pg/mL Performed By: #### [id number] ## ## [place] [address] CORONAVIRUS (SARS) ANTIGEN TEST Collect ed: 10/20/2024 11:53 AM Status: F Source: [facility] TYPE CODE TESTS RESULT OUT OF RANGE REFERENCE UNITS LAB SARS ANTIGEN(LOINC) SARS ANTIGEN NEGATIVE NORMAL: NEGATIVE LAB INTERNAL CONTROL(LOINC) INTERNAL CONTROL PASS LAB EXTERNAL QC DONE?(LOINC) EXTERNAL QC DONE? YES LAB SEND TO IC?(LOINC) SEND TO IC? NO Result Comment: SARS-CoV-2 THIS TEST IS BEING USED UNDER THE FDA EUA PROCEDURE. THIS ASSAY HAS BEEN VALIDATED AT [facility] FOR USE WITH NASAL AND NASOPHARYNGEAL SWAB [...] WITH PUBLIC HEALTH AUTHORITIES. Performed By: #### [id number] ## ## [facility],[address] [place] [address] CMP WITH EGFR Collected: 4 11:53 AM Status: F Source: [facility] TYPE CODE TESTS RESULT OUT OF [...] OF AGE AND OLDER. Performed By: #### [id number] ## ## [facility],[address] [place] [address] INFLUENZA VIRUS RAPID A/B Observed: 09/23 11:53 AM Status: F Source: [facility] INFLUENZA A NEGATIVE INFLUENZA B NEGATIVE [...] DAYS. RESULT CRITICAL? NO Performed By: #### [id number] ## ## [facility],[address] [place] [address] CHEST 1 VIEW Observed: 10/20/2024 11:38 AM Status: F Source: [place] [address] Patient: JAQUELIN SZYMANSKI Phone#: : 1995 Age: 29 Gender: F Pt. Type: ER Account: [id number] Location: [facility] Ordering: BRYCE JUSTIN Exam Date: 10/20/2024/11:32 Family Phys: KEVIN BRADLEY Charge Code: [id number] Physician: Greenwood Order #: [id number] Dose#: PROCEDURE: X-RAY CHEST 1 VIEW COMPARISON: [facility], , CHEST 1 VIEW, 05/10/2024, 20:31. INDICATIONS: Cough. [...] ONLY) Observed: 11:11 AM Status: F Source: [facility] Order Sheet Order Sheet [address] [address] [id number] 10/20/2024 Patient: JAQUELIN SZYMANSKI Sex: Female : 1995 Age: 29y MEASUREMENTS: Wt: 86.6 kg, Ht/Osmar: 65.0 in, BMI: 31.78 ALLERGIES: Excedrin Migraine, Neosporin (cdy-wuf-rlfcj), azithromycin, latex MEDICATION/IV/DRIP/FLUID ORDERS Order Description Priority Entered Acknowledged Completed IV NS 0.9 %1000 mL at 999 11:30 10/20/2024 11:31 12:06 mL/hr (NOW x1) Bryce Justin, 10/20/2024 10/20/2024 D.OTila Jennings, R.N. R.N. KetorOLAC (Toradol) IVP30 mg 11:30 10/20/2024 11:31 12:06 (NOW x1) Bryce Justin, 10/20/2024 10/20/2024 Tila Conteh, R.N. R.N. Reason for ordering with alerts: Benefits outweigh risks --11:30 10/20/2024 Bryce Justin D.O. Acetaminophen (Tylenol) 14:12 10/20/2024 14:22 14:28 PO975 mg (NOW x1) Bryce Justin, 10/20/2024 10/20/2024 Tila Conteh, Jani.N. R.N. Reason for ordering with alerts: Benefits outweigh risks --14:12 10/20/2024 Bryce Justin D.O. 1 of 3 Order Sheet LAB ORDERS Order Description Priority Entered Acknowledged Collected Completed CBC w Diff Stat Stat 11:30 10/20/2024 11:31 10/20/2024 12:01 10/20/2024 Tila Alston Lemasters, D.O. R.N. R.N. CMP Stat Stat 11:30 10/20/2024 11:31 10/20/2024 12:01 10/20/2024 Tila Alston Lemasters, D.O. R.N. R.N. EKG - ED Stat Stat 11:30 10/20/2024 11:31 10/20/2024 12:01 10/20/2024 Tila Alston Lemasters, D.O. R.N. R.N. Troponin-I Stat Stat 11:30 10/20/2024 11:31 10/20/2024 12:01 10/20/2024 Tila Alston Lemasters, D.O. R.N. R.NKaye Urinalysis Stat Stat 11:30 10/20/2024 11:31 10/20/2024 12:01 10/20/2024 Tila Alston Lemasters, D.O. R.N. R.NKaye Rapid COVID (SARS) Stat 11:30 10/20/2024 11:31 10/20/2024 12:01 10/20/2024 ANTIGEN TEST Stat Tila Alston Lemasters, D.O. R.N. R.NKaye Flu Swab (Influenzae Stat 11:30 10/20/2024 11:31 10/20/2024 12:01 10/20/2024 AAg) Stat Tila Alston Lemasters, D.O. R.N. R.NKaye DIAGNOSTIC STUDY ORDERS 2 of 3 Order Sheet Order Description Priority Entered Acknowledged Completed Chest 1V Stat Stat 11:30 10/20/2024 11:31 12:01 Bryce Justin, 10/20/2024 10/20/2024 Tila Conteh R.N. R.NKaye Reason for Study: Cough STAFF ORDERS Order Description Priority Entered Acknowledged Collected Completed IV Saline Lock 11:30 10/20/2024 11:31 10/20/2024 12:01 10/20/2024 Tila Alston Lemasters, D.O. R.N. R.NKaye [Electronically signed by Bryce Justin D.O. (11/02/2024 07:55 EST)] 3 of 3 ED PHYSICIAN DISCHARGE REPORT Observed: 10/20/2024 11:11 AM Status: F Source: [facility] Discharge Instructions Discharge Summary [address] [address] [id number] 10/20/2024 Patient: JAQUELIN SZYMANSKI Sex: Female : 1995 Age: 29y Thank you for visiting [facility]. You have been evaluated today by Bryce Justin D.O. for the following condition(s): Principal Diagnosis Viral syndrome INSTRUCTIONS Prescription Medications: ketorolac 10 mg tablet: Take 1 tablet by mouth every eight hours as needed for pain for 5 days, dispense 15 tablet. Refills 0. Pharmacy: [facility] [address] [place] [address]. ondansetron 4 mg disintegrating tablet: Take 1 tablet on tongue every eight hours for nausea/vomiting for 5 days, dispense 15 tablet. Refills 0. Pharmacy: [facility] - [address] [place] [address]. Follow-up: Follow up with your healthcare provider in two days. Call for an appointment. You have been given the following additional information: Viral Syndrome (Adult) 1 of 4 Discharge Instructions Patient Signature Facility [employer] Date/Time General Instructions with ExitWriter [address] [address] [id number] 10/20/2024 Patient: JAQUELIN SZYMANSKI Sex: Female : 1995 Age: 29y Thank you for visiting [facility]. You have been evaluated today by Bryce Justin D.O. for the following condition(s): Principal Diagnosis Viral syndrome INSTRUCTIONS Prescription Medications: ketorolac 10 mg tablet: Take 1 tablet by mouth every eight hours as needed for pain for 5 days, dispense 15 tablet. Refills 0. Pharmacy: [facility] [address] [place] [address]. ondansetron 4 mg disintegrating tablet: Take 1 tablet on tongue every eight hours for nausea/vomiting for 5 days, dispense 15 tablet. Refills 0. Pharmacy: [facility] - [address] [place] [address]. Follow-up: Follow up with your healthcare provider [...] the smoke from others. You may use hxvj-yrg-nfhxhra acetaminophen or ibuprofen for fever, muscle aching, [...] body and be dangerous to your health. Hhrz-psv-smqbzhq remedies won't shorten the length of the [...] Observed: 2023 11:11 AM Status: F Source: [facility] Nurse Narrative Nurse Clinical Narrative [address] [address] [phone] 10/20/2024 Patient: JAQUELIN SZYMANSKI Sex: Female : 1995 Age: 29y Disposition: Discharge to Home Disposition Decision Time: 14:42 10/20/2024 Departure Time: 14:53 10/20/2024 TRIAGE Arrived by private vehicle. Historian: patient. Accompanied by family. Triage time: 11:11 10/20/2024. Acuity: LEVEL 3. Chief Complaint: COUGH and SORE THROAT and SINUS CONGESTION and CHILLS (headache, chest pain). Onset. (). -- 11:25 10/20/24 TOMAS Rodríguez R.N. 11:11 10/20/24. SEPSIS SCREEN: NEGATIVE. SIRS criteria negative: heart rate greater than 90. Possible sources of infection: COVID-19. -- 11:38 10/20/24 TOMAS Rodríguez R.N. 11:21 10/20/24. BP: 112/73 MAP: 86. HR: 120. RR: 19. O2 saturation: 97% Temperature: 97.8 F. Pain level now 5/10. Describes the pain as aching. -- 11:24 10/20/24 TOMAS Rodríguez R.N. Measurements: 11:10/20/24 Wt: 86.6 [...] -- 11:19 10/20/24 TOMAS Rodríguez R.N. Neosporin (irv-ybe-rsggu) -- 11:19 10/20/24 TOMAS Rodríguez R.N. latex -- 11:19 10/20/24 TOMAS Rodríguez R.N. azithromycin -- 11:19 10/20/24 TOMAS Rodríguez R.N. Home Medications/Allergy Information Source: patient -- 11:20 10/20/24 TOMAS Rodríguez R.N. Problems: Davonte's Disease -- 11:20 10/20/24 TOMAS Rodríguez R.N. [...] R.N. History 2 of 4 Nurse Narrative 11:11 10/20/24. PAST MEDICAL HX: Immunizations: up-to-date. No menstrual [...] identified. -- 11:25 10/20/24 TOMAS Rodríguez R.N. 11:11 10/20/24. SOCIAL HX: The patient has not traveled [...] NOTES 11:19 10/20/24. 12-LEAD EKG: EKG time: (11:19 10/20/2024). 12-Lead EKG was performed by me and shown to the ED physician. -- 11:39 10/20/24 TOMAS Rodríguez R.N. 11:34 10/20/24. lead technical architect at the patient's bedside (doing ordered chest [...] medication. -- 12:06 10/20/24 TOMAS Torrez R.N. 12:06 10/20/24. IV NS 0.9 % 1000 mL started [...] Patient verbalized understanding. Written instructions provided in Moroccan. The patient was discharged by the physician. The patient was discharged home. The patient left ambulatory and via private vehicle. Spouse driving. -- 15:07 10/20/24 TOMAS Torrez R.N. Departure time: 14:53 10/20/2024. -- 15:07 10/20/24 TOMAS Torrez R.N. 14:53 10/20/24. BP: 103/56 taken on left arm, while lying. MAP: 72. Pain level now 10. -- 15:10 10/20/24 TOMAS Torrez R.N. 14:53 10/20/24. Site #1 removed upon discharge. Catheter intact. Bandaid applied. -- 15:06 10/20/24 TOMAS Torrez R.N. (Electronically signed by Tila Torrez R.N. 10/20/24 15:10:58 EST) Generated by [facility] 4 of 4 ED VITALS FLOW SHEET Observed: 11:11 AM Status: F Source: [facility] Vitals Vital Sign Flow Sheet [address] [address] [id number] 10/20/2024 Patient: JAQUELIN SZYMANSKI Sex: Female : [...] Observed: 10/20/2024 11:11 AM Status: F Source: [facility] Visit Overview Visit Overview [address] [place] [address] [phone] 10/20/2024 Patient: JAQUELIN SZYMANSKI Sex: Female : [...] ) ALLERGIES azithromycin Excedrin Migraine latex Neosporin (qyz-aqr-jgxul) HOME MEDICATIONS Aimovig Autoinjector 70 mg/mL subcutaneous auto-injector: 1 once a month. atorvastatin 10 mg tablet: 1 tablet once a day. 1 of 4 Visit Overview clomipramine 50 mg capsule: 4 [...] a day. PAST MEDICAL HISTORY / PROBLEMS Davonte's Disease [...] 999 mL/hr 2 of 4 Visit Overview 14:27 10/20/24 Acetaminophen (Tylenol) [...] Observed: 10/20/2024 11:11 AM Status: F Source: [facility] [address] [place] [address] [phone] 10/20/2024 Patient: JAQUELIN SZYMANSKI Sex: Female : 1995 Age: 29y Item Facility Professional Category Description Code Code Quantity Fee Total Nurse/E/M EMERGENCY 248267 1 $0.00 $0.00 DEPARTMENT VISIT HIGH/URGENT SEVERITY (08818-14) Nurse/IV/IM/Infusions Hydration 967214 1 $0.00 $0.00 additional hour (72263) Nurse/IV/IM/Infusions IVP initial 203563 1 $0.00 $0.00 (70763) Grand Total $0.00 Providers Bryce Justin D.O. Chief Complaint COUGH, MUSCLE ACHES and FLU. 1 of 2 [facility] Principal Diagnosis Viral syndrome ICD-10 Codes B34.9: Viral infection, unspecified 2 of 2 ED PHYSICIAN CLINICAL REPORT Observed: 1 12/21/2023 11:11 AM Status: F Source: [facility] Narrative Physician Clinical Narrative [facility] [address] [facility] [place] [address] [phone] 10/20/2024 Patient: JAQUELIN SZYMANSKI Sex: Female : [...] No nausea, vomiting or diarrhea. PAST HISTORY Warren's Disease 1 of 17 Narrative Diabetes Mellitus [...] day. Allergies: azithromycin Excedrin Migraine latex Neosporin (byy-aeg-phsat) Home Medications/Allergy Information Source: patient - Brianna Rodríguez R.N., 10/20/2024 11:20 EST SOCIAL HISTORY No alcohol [...] 1.50 - 7.10 Final EST 10/20/2024 12:37 [place] # 0.59 x10/UL 0.20 - 1.00 Final [...] PROCEDURE. THIS ASSAY HAS BEEN VALIDATED AT [facility] FOR USE WITH NASAL AND NASOPHARYNGEAL SWAB [...] 14:35 Glucose Final Abnormal NORMAL EST 13 of 17 Narrative 50 NORMAL: 10/20/2024 14:35 Ketone Final Abnormal NEGATIVE EST 1 NORMAL: 10/20/2024 14:35 Bilirubin Final Abnormal NEGATIVE EST 25 NORMAL: 10/20/2024 14:35 Blood Final Abnormal NEGATIVE EST NORMAL: 10/20/2024 14:35 Urobilinog NORM Final NORMAL EST NORMAL: 10/20/2024 14:35 Sp Valier 1.025 Final 1.010-1.030 EST NORMAL: 10/20/2024 14:35 [...] 10/20/2024 11:38:00 EST MsgRcvd: 10/20/2024 20:08 EST [place] [address] Patient: JAQUELIN SZYMANSKI Phone#: : 1995 Age: 29 Gender: F Pt. Type: ER Account: [id number] Location: 052 Ordering: BRYCE JUSTIN Exam Date: 10/20/2024/11:32 Family Phys: KEVIN BRADLEY Charge Code: [id number] Physician: Greenwood Order #: [id number] Dose#: PROCEDURE: X-RAY CHEST 1 VIEW COMPARISON: [facility], XR, CHEST 1 VIEW, 05/10/2024, 20:31. INDICATIONS: [...] days, dispense 15 tablet. Refills 0. Pharmacy: [facility] - [address] [place] [id number]. ondansetron 4 mg disintegrating tablet: Take 1 tablet on tongue every eight hours for nausea/vomiting for 5 days, dispense 15 tablet. Refills 0. Pharmacy: [facility] - [address] [place] [address]. Follow-up: Follow up with your healthcare provider in two days. Call for an appointment. (Electronically signed by Bryce Justin D.O. 11/02/24 07:55:08 EST) Disposition History: 16 of 17 Narrative Disposition Decision Time: 14:42 10/20/2024. Disposition changed to Discharge. -- 14:42 10/20/2024 Bryce Justin D.O. Disposition Decision Time: 14:42 10/20/2024. Disposition changed to Discharge to Home. Departure Time: 14:53 10/20/2024. -- 15:07 10/20/2024 Tila Torrez R.N. Generated by [facility] 17 of 17 ED MED ADMINISTRATION DETAIL Observed: 1 12/21/2023 11:11 AM Status: F Source: [facility] Carbon Setter Medication Administration Record [place] [address] [place] [address] [phone] 10/20/2024 Patient: JAQUELIN SZYMANSKI Sex: Female : 1995 Age: 29y MEASUREMENTS: Wt: 86.6 kg, Ht/Osmar: 65.0 in, BMI: 31.78 ALLERGIES: Excedrin Migraine, Neosporin (raz-jkb-ypdjk), azithromycin, latex Medication Ordered Medication Administration Date/Time IV NS 0.9 % 1000 12:10/20 IV NS 0.9 % 1000 mL started in bag#1 1000 mL at Started mL at 999 mL/hr 999 mL/hr via Site# 1. Allergies verified and confirmed 5 rights. Via 12:10/20/2024 (NOW x1) IV pump. IV patency established. [...] for taking this medication. - 14:28 Tila Torrez, Tila Torrez, Angel Luis RRicky Scanned 1 of 2 Carbon Setter 2 of 2 URINALYSIS Collected: 11:20 PM Status: F Source: [facility] TYPE CODE TESTS RESULT OUT OF [...] NC) Urobilinog NORM NORMAL: NORMAL LAB Sp Valier(LOINC) Sp Valier 1.020 NORMAL: 1.010-1.030 LAB Nitrite(LOINC) Nitrite NEG [...] LAB Yeast(LOINC) Yeast NONE Performed By: #### [id number] ## ## [facility],[address] [place] [address] URINE Collected: 10/07/2024 11:20 PM Statu s: F Source: [facility] TYPE CODE TESTS RESULT OUT OF RANGE REFERENCE UNITS LAB UR(LOINC) UR NEGATIVE NEGATIVE LAB INTERNAL QC(LOINC) INTERNAL QC PASS LAB EXTERNAL QC DONE?(INC) EXTERNAL QC DONE? YES Performed By: #### [id number] ## ## [facility],[address] [place] [address] CT KUB (KIDNEY STONE PROTOCOL) Observed: 10/07/2024 9:06 PM Status: F Source: [place] [address] Patient: JAQUELIN SZYMANSKI Phone#: : 1995 Age: 29 Gender: F Pt. Type: ER Account: [id number] Location: 2 Ordering: DR. STEPHANIE RODAS Exam Date: 10/07/2024/20:39 Family Phys: KEVIN BRADLEY Charge Code: [id number] Physician: Greenwood Order #: [id number] Dose#: 13.2 mGy PROCEDURE: CT ABDOMEN AND PELVIS WITHOUT CONTRAST COMPARISON: [facility], CT, ABDOMEN/PELVIS W CON, 06/10/2024, 15:23. [facility], CT, KUB W/O CON, 11/02/2023, 15:17. INDICATIONS: [...] 29 Gender: F Pt. Type: ER Account: [id number] Location: 052 Ordering: DR. STEPHANIE RODAS Exam Date: 10/07/2024/20:39 Family Phys: KEVIN BRADLEY Charge Code: [id number] Physician: Greenwood Order #: [id number] Dose#: 13.2 mGy BONES: Normal. No bony [...] Collected: 4 7:40 PM Status: F Source: [facility] TYPE CODE TESTS RESULT OUT OF RANGE REFERENCE UNITS LAB LIPASE(LOINC) LIPASE 21.0 15.0 - 78.0 U/L Result Comment: *PLEASE NOTE THAT RANGES FOR LIPASE HAVE CHANGED OF 10/20/23 DUE TO AN ASSAY UPDATE BY THE FOUR CORNER FORMER MACHINE OPERATOR.THE NEW ASSAY RANGE IS 6-250 U/L, WITH A REFERENCE RANGE OF 16-77 U/L. Performed By: #### [id number] ## ## [facility],[address] [place] [address] CBC + DIFF Collected: 4 7:40 PM Status: F Source: [facility] TYPE CODE TESTS RESULT OUT OF [...] 5.04 1.50 - 7.10 x10EE3 /UL LAB [place] #(LOINC) [place] # 0.75 0.20 - 1.00 x10EE3 /UL LAB EO #(LOINC) EO # 0.03 0.00 - 0.50 x10EE3/U L LAB Baso #(LOINC) Baso # 0.02 0.00 - 0.10 x10EE3 /UL LAB MANUAL DIFF(LOINC) MANUAL DIFF N/A LAB MORPHOLOGY(KARMA NC) MORPHOLOGY N/A Performed By: #### [id number] ## ## [facility],[address] [place] [address] CMP WITH EGFR Collected: 4 7:40 PM Status: F Source: [facility] TYPE CODE TESTS RESULT OUT OF [...] OF AGE AND OLDER. Performed By: #### [id number] ## ## [facility],[address] [place] [address] ED VISIT SUMMARY Observed: 10/07/2024 6:23 PM Status: F Source: [facility] Visit Overview Visit Overview [address] [place] [address] [phone] 10/07/2024 Patient: JAQUELIN SZYMANSKI Sex: Female : [...] ) ALLERGIES azithromycin Excedrin Migraine latex Neosporin (qks-xaw-ooohm) HOME MEDICATIONS Aimovig Autoinjector 70 mg/mL subcutaneous auto-injector: 1 once a month. atorvastatin 10 mg tablet: 1 tablet once a day. 1 of 4 Visit Overview clomipramine 50 mg capsule: [...] a day. 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 [address] [id number] 10/07/2024 Patient: JAQUELIN SZYMANSKI Sex: Female : [...] ONLY) Observed: 6:23 PM Status: F Source: [facility] Order Sheet Order Sheet [address] [place] [address] [id number] 10/07/2024 Patient: JAQUELIN SZYMANSKI Sex: Female : 1995 Age: 29y MEASUREMENTS: Wt: 86.6 kg, Ht/Osmar: 65.0 in, BMI: 31.78 ALLERGIES: Excedrin Migraine, Neosporin (jjl-tqc-dqhpq), azithromycin, latex MEDICATION/IV/DRIP/FLUID ORDERS Order Description Priority Entered Acknowledged Completed Zofran IVP4 mg (NOW x1) 19:33 10/07/2024 19:35 20:05 Stephanie Rodas M.D. 10/07/2024 10/07/2024 Ingrid Gagnon R.NKaye R.N. IV NS 0.9 %1000 mL at 999 19:33 10/07/2024 19:35 19:59 mL/hr (NOW x1) Stephanie Rodas M.D. 10/07/2024 10/07/2024 Ingrid Gagnon R.N. R.N. KetorOLAC (Toradol) IVP15 mg 19:33 10/07/2024 19:35 20:08 (NOW x1) Stephanie Rodas M.D. 10/07/2024 10/07/2024 Ingrid Jeff, Ingrid Jeff, R.N. R.N. Reason for ordering with alerts: [...] M.D. 10/07/2024 10/07/2024 ALERT MEDICATION) Ingrid Gagnon, AngeliqueN. R.N. Reason for ordering with alerts: Benefits outweigh risks --22:11 10/07/2024 Stephanie Rodas M.D. Zofran IVP4 mg (NOW x1) 22:11 10/07/2024 22:14 22:24 Stephanie Rodas M.D. 10/07/2024 10/07/2024 Ingrid Gagnon, Jani.N. R.N. Reason for ordering with alerts: Benefits outweigh risks --22:11 10/07/2024 Stephanie Rodas M.D. LAB ORDERS Order Description Priority Entered Acknowledged Collected Completed CBC w Diff Stat Stat 18:35 10/07/2024 18:49 10/07/2024 Sosa Stout D.O. R.N. CMP Stat Stat 18:35 10/07/2024 18:49 10/07/2024 Sosa Stout D.O. R.N. Lipase Stat Stat 18:35 10/07/2024 18:49 10/07/2024 Sosa Stout D.O. RRicky Urinalysis Stat Stat 18:35 10/07/2024 18:49 10/07/2024 Sosa Stout D.O. RKayeNKaye 2 of 3 Order Sheet Urine - HCG Stat 18:35 10/07/2024 18:49 10/07/2024 Stat Sosa Stout D.O. RRicky DIAGNOSTIC STUDY ORDERS Order Description Priority Entered [...] 18:35 10/07/2024 18:49 10/07/2024 Sosa Stout D.O. RKayeNKaye [Electronically signed by Stephanie Rodas M.D. (10/08/2024 02:01 EST)] 3 of 3 ED MED ADMINISTRATION DETAIL Observed: 1 12/08/2023 6:23 PM Status: F Source: [facility] Carbon Setter Medication Administration Record [address] [address] [id number] 10/07/2024 Patient: JAQUELIN SZYMANSKI Sex: Female : 1995 Age: 29y MEASUREMENTS: Wt: 86.6 kg, Ht/Osmar: 65.0 in, BMI: 31.78 ALLERGIES: Excedrin Migraine, Neosporin (azb-ndh-xbpyf), azithromycin, latex Medication Ordered Medication Administration Date/Time [...] 00:03 Ingrid Aguilar R.N. 1 of 3 Carbon Setter Medication Ordered Medication Administration Date/Time KetorOLAC 20:08 [...] mg wasted. - 21:02 Ingrid Aguilar R.N. 21:06 10/07 Medication Response: No adverse reaction. Pain [...] 22:38 Ingrid Aguilar R.N. 2 of 3 Carbon Setter Medication Ordered Medication Administration Date/Time Zofran IVP [...] Observed: 2023 6:23 PM Status: F Source: [facility] Nurse Narrative Nurse Clinical Narrative [facility] [address] [place] [address] [phone] 10/07/2024 Patient: JAQUELIN SZYMANSKI Sex: Female : [...] in, BMI: 31.78 -- 18:28 10/07/24 TOMAS Rodríguez R.N. Medications: topiramate 25 mg tablet: 1 [...] 1 once a month. -- 18:41 10/07/24 TOMAS Rodríguez R.N. Allergies: Excedrin Migraine -- 18:26 10/07/24 TOMAS Rodríguez R.N. Neosporin (dzv-jnh-tabaq) -- 18:26 10/07/24 TOMAS Rodríguez R.N. latex -- 18:26 10/07/24 TOMAS Rodríguez R.N. azithromycin -- 18:26 10/07/24 TOMAS Rodríguez R.N. Home Medications/Allergy Information Source: patient -- 18:26 10/07/24 TOMAS Rodríguez R.N. Problems: Warren's Disease -- 18:26 10/07/24 TOMAS Rodríguez R.N. [...] is resting on cart). -- 19:50 10/07/24 EST Ingrid Aguilar R.N. 3 of 5 Nurse Narrative [...] 20:29 10/07/24. Patient walked to radiology with radiologic technology teacher. -- 20:44 10/07/24 TOMAS Aguilar R.N. 20:45 10/07/24. Patient walked back from radiology with radiologic technology teacher. -- 20:45 10/07/24 TOMAS Aguilar R.N. 20:48 [...] R.N. 22:00 10/07/24. ( Pain has lessened. 6/10). -- 23:59 10/07/24 TOMAS Aguilar R.N. 22:20 [...] 97% on room air. Pain level now 06/01. -- 22:29 10/07/24 TOMAS Aguilar R.N. 4 of 5 Nurse Narrative 22:38 10/07/24. HYDROmorphone (Dilaudid) IVP: Medication Response. No adverse reaction. Pain is improving. Symptoms have improved. The patient feels better. -- 22:38 10/07/24 TOMAS Aguialr R.N. 22:39 10/07/24. Zofran IVP: Medication Response. [...] with 5 mL saline. (Inserted per Keshia MONSIVAIS) -- 19:59 10/07/24 TOMAS Aguilar R.N. 20:03 10/07/24. IV NS 0.9 %: Medication Discontinued. bag #1 infused. Total amount infused: 1000 mL. IV patency established. IV site checked: no pain, redness, or swelling. IV flushed thoroughly post-medication administration. -- 00:03 10/08/24 EST Ingrid Aguilar R.N. Departure time: 23:36 10/07/2024. Condition at departure: improved. No learning barriers present. Discharge instructions provided and reviewed with the patient. Patient verbalized understanding. Written instructions provided in Moroccan. The patient was discharged by the physician. The patient was discharged home and accompanied by spouse. The patient left ambulatory and via private vehicle. Spouse driving. -- 00:04 10/08/24 EST Ingrid Aguilar R.N. 23:36 10/07/24. Site #1 removed upon discharge. Catheter intact. Pressure dressing applied. -- 00:05 10/08/24 EST Ingrid Aguilar R.N. 23:36 10/07/24. Site #2 removed upon discharge. Catheter intact. Pressure dressing applied. -- 00:06 10/08/24 EST Ingrid Aguilar R.N. (Electronically signed by Ingrid Aguilar R.N. 10/08/24 00:07:23 EST) Generated by [facility] 5 of 5 ED PHYSICIAN CLINICAL REPORT Observed: 1 12/08/2023 6:23 PM Status: F Source: [facility] Narrative Physician Clinical Narrative [address] [address] [id number] 10/07/2024 Patient: JAQUELIN SZYMANSKI Sex: Female : [...] HPI. 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 Allergies: azithromycin Excedrin Migraine latex Neosporin (uje-cdu-jctjj) Home Medications/Allergy Information Source: patient - Brianna [...] 1.50 - 7.10 Final EST 10/07/2024 20:11 [place] # 0.75 x10/UL 0.20 - 1.00 Final [...] 78.0 Final UPDATE BY THE 20:19 EST FOUR CORNER FORMER MACHINE OPERATOR.THE NEW ASSAY RANGE IS 6-250 U/L, WITH A REFERENCE RANGE OF 16-77 U/L. URINE Final LENORA: 10/07/2024 23:20:00 EST MsgRcvd: 10/07/2024 23:59 EST Lab Test Result Reference Status Received Comments 10/07/2024 23:59 NEGATIVE NEGATIVE Final UR EST 10/07/2024 23:59 INTERNAL QC PASS Final EST EXTERNAL QC 10/07/2024 23:59 YES Final DONE? EST URINALYSIS Final LENORA: 10/07/2024 23:20:00 EST MsgRcvd: 10/08/2024 00:02 EST [...] Final NORMAL EST NORMAL: 10/08/2024 00:02 Sp Valier 1.020 Final 1.010-1.030 EST NORMAL: 10/08/2024 00:02 Nitrite NEG Final NEGATIVE EST NORMAL: 10/08/2024 00:02 Leukocytes NEG Final NEGATIVE EST 10/08/2024 00:02 Microscopic SEE BELOW Final MICROSCOPIC EST 10/08/2024 00:02 Wbc NONE 0-5/hpf Final EST Narrative 10/08/2024 00:02 Rbc 0-5 0-3/hpf Final [...] 10/07/2024 21:06:00 EST MsgRcvd: 10/07/2024 21:06 EST [place] [address] Patient: JAQUELIN SZYMANSKI Phone#: : 1995 Age: 29 Gender: F Pt. Type: ER Account: [id number] Location: 052 Ordering: DR. STEPHANIE RODAS Exam Date: 10/07/2024/20:39 Family Phys: KEVIN BRADLEY Charge Code: 717705 Physician: Greenwood Order #: [id number] Narrative Dose#: 13.2 mGy PROCEDURE: CT ABDOMEN AND PELVIS WITHOUT CONTRAST COMPARISON: [facility], CT, ABDOMEN/PELVIS W CON, 06/10/2024, 15:23. [facility], CT, KUB W/O CON, 11/02/2023, 15:17. INDICATIONS: [...] 29 Gender: F Pt. Type: ER Account: [id number] Location: 052 Ordering: DR. STEPHANIE RODAS Exam Date: 10/07/2024/20:39 Family Phys: KEVIN MIRNA Charge Code: 627650 Physician: Greenwood Order #: [id number] 12 of 14 Narrative Dose#: 13.2 mGy [...] this time to follow up with PCP. 13 of 14 Narrative Disposition: Discharge patient Impression: abdominal pain). [...] Rodas M.D. 10/08/24 02:01:16 EST) Generated by [facility] 14 of 14 ED PHYSICIAN DISCHARGE REPORT Observed: 10/07/2024 6:23 PM Status: F Source: [facility] Discharge Instructions Discharge Summary [address] [address] [id number] 10/07/2024 Patient: JAQUELIN SZYMANSKI Sex: Female : 1995 Age: 29y Thank you for visiting [facility]. You have been evaluated today by Stephanie [...] of Abdominal Pain (Female) Patient Signature Facility Binder Lockstitch Date/Time 1 of 5 Discharge Instructions General Instructions with ExitWriter [address] [address] [id number] 10/07/2024 Patient: JAQUELIN SZYMANSKI Sex: Female : 1995 Age: 29y Thank you for visiting [facility]. You have been evaluated today by Stephanie [...] Observed: 10/07/2024 6:23 PM Status: F Source: [address] [place] [address] [phone] 10/07/2024 Patient: JAQUELIN SZYMANSKI Sex: Female : 1995 Age: 29y Item Facility Professional Category Description Code Code Quantity Fee Total Drugs Normal Saline 744050 1 $0.00 $0.00 1000cc (361142) Nurse/E/M EMERGENCY 113781 1 $0.00 $0.00 DEPARTMENT VISIT HIGH/URGENT SEVERITY (93870-43) Nurse/IV/IM/Infusions IVP additional 003341 2 $0.00 $0.00 push (48072) Nurse/IV/IM/Infusions IVP initial 319918 1 $0.00 $0.00 (38707) Nurse/IV/IM/Infusions IVP same med 375197 2 $0.00 $0.00 (31 min apart) (28268) Grand Total $0.00 Providers Stephanie Rodas M.D. 1 of 2 [facility] Chief Complaint FLANK PAIN. Principal Diagnosis Right upper quadrant abdominal pain. ICD-10 Codes R10.11: Right upper quadrant pain 2 of 2 PROGRESS Observed: 09/25/2024 3:29 PM Status: COMPLETED Source: [facility] HNO ID: [id number] Author: TRINA DAILY APRN.CNP Service: ? Author Type: Nurse Practitioner Type: [...] visit. Either the patient or their legal inside sales representative has been informed of the risks and benefits of -- and alternatives to -- treatment through a remote evaluation and consents to proceed with the evaluation remotely. All information is from Patient report except when noted. This evaluation is NOT intended for forensic, disability or child custody purposes. ITrina APRN.CNP, personally performed the services described in this documentation. All medical record entries made by the CHRISTINE student were at my direction and in my presence. I have reviewed the chart and discharge instructions (if applicable) and agree that the record reflects my personal performance and is accurate and complete. Trina Daily APRN.CNP October 03, 2024 CC: Presenting today for [...] level for monitoring purposes. 4. [facility] or 180. 5. Follow up [...] bowel prep, will need repeated EGD W/O [facility] SPEC VARICIES INJ 09/21/2021 EXTRACTION ERUPTED TOOTH 08/2015 HYSTERECTOMY 08/13/2020 LAPAROSCOPIC CHOLECYSTECTOMY 06/09/2021 Byron Story REMOVAL OF OVARY(S) Right 12/28/2020 Dr Chavez THYROIDECTOMY TOTAL/COMPLETE 2015 [facility] VAGINAL HYSTERECTOMY ALLERGIES Allergen Reactions Prednisone Anaphylaxis Had at the same time as Z-geri - unsure which caused the anaphylaxis Syn-Gbaxbofazpxue-G* Anaphylaxis Excedrin [Acetamino* Swelling Mouth, can take [...] Observed: 09/25/2024 10:24 AM Status: COMPLETED Source: [facility] ID: [id number] Author: BECKIE BEAR MD Service: ? Author Type: Physician Type: Progress Notes Filed: 09/25/2024 10:25 Note Text: Patient left without being seen TROPONIN Collected: 12:56 PM Status: F Source: [facility] TYPE CODE TESTS RESULT OUT OF RANGE REFERENCE UNITS LAB HS TROPONIN(LOINC) HS TROPONIN <4.0 0.0 - 51.4 pg/mL Performed By: #### [id number] ## ## [facility],[address] [place] [address] URINALYSIS Collected: 4 12:48 PM Status: F Source: [facility] TYPE CODE TESTS RESULT OUT OF [...] NC) Urobilinog NORM NORMAL: NORMAL LAB Sp Valier(LOINC) Sp Valier 1.010 NORMAL: 1.010-1.030 LAB Nitrite(LOINC) Nitrite POS [...] LAB Yeast(LOINC) Yeast NONE Performed By: #### [id number] ## ## [facility],[address] [place] [address] TROPONIN Collected: 4 10:51 AM Status: F Source: [facility] TYPE CODE TESTS RESULT OUT OF RANGE REFERENCE UNITS LAB HS TROPONIN(LOINC) HS TROPONIN <4.0 0.0 - 51.4 pg/mL Performed By: #### [id number] ## ## [facility],[address] [place] [address] CBC + DIFF Collected: 4 10:51 AM Status: F Source: [facility] TYPE CODE TESTS RESULT OUT OF [...] 6.13 1.50 - 7.10 x10EE3 /UL LAB [place] #(LOINC) [place] # 0.75 0.20 - 1.00 x10EE3 /UL [...] MORPHOLOGY(KARMA NC) MORPHOLOGY N/A Performed By: #### [id number] ## ## [facility],[address] [place] [address] ED ORDER SHEET (CPOE ONLY) Observed: 01/2024 10:39 AM Status: F Source: [facility] Order [place] [address] [id number] 08/26/2024 Patient: JAQUELIN SZYMANSKI Sex: Female : 1995 Age: 29y MEASUREMENTS: Wt: 87.1 kg, Ht/Osmar: 65.0 in, BMI: 31.95 ALLERGIES: Excedrin Migraine, Neosporin (gog-kdf-mkwzo), azithromycin, latex MEDICATION/IV/DRIP/FLUID ORDERS Order Description Priority Entered Acknowledged Completed IV NS 0.9 %1000 mL at 500 11:28 08/26/2024 11:35 mL/hr (NOW x1) Kevin Garcia, 08/26/2024 Ken Torrez, R.NKaye LAB ORDERS Order Description Priority Entered Acknowledged Collected Completed CBC w Diff Stat Stat 10:58 08/26/2024 10:59 08/26/2024 10:59 08/26/2024 Tila Hampton Natalie Yoder, D.O. R.N. R.N. CMP Stat Stat 10:58 08/26/2024 10:59 08/26/2024 10:59 08/26/2024 Tila Hampton Natalie Yoder, D.O. R.N. R.N. Troponin-I Stat Stat 10:58 08/26/2024 10:59 08/26/2024 10:59 08/26/2024 Tila Hampton Natalie Yoder, 1 of 3 Order Sheet Ken Hein R.N. EKG - ED Stat Stat 10:58 08/26/2024 10:59 08/26/2024 10:59 08/26/2024 Tila Hampton Natalie Yoder, D.O. R.N. R.NKaye Urinalysis Stat Stat 11:29 08/26/2024 11:30 08/26/2024 11:30 08/26/2024 Tila Hampton Natalie Yoder, D.O. R.N. R.NKaye Troponin-I Stat Stat 12:41 08/26/2024 12:49 08/26/2024 13:33 08/26/2024 Tila Hampton Natalie Yoder, D.O. R.N. R.NKaye DIAGNOSTIC STUDY ORDERS Order Description Priority Entered Acknowledged Completed STAFF ORDERS Order Description Priority Entered Acknowledged Collected Completed Obtain Old EKG 10:58 08/26/2024 10:59 08/26/2024 10:59 08/26/2024 Tila Hampton Natalie Yoder, D.O. R.N. R.NKaye General Road Production Manager 10:58 08/26/2024 10:59 08/26/2024 10:59 08/26/2024 Tila Hampton Natalie Yoder, D.O. R.N. R.NKaye Vital signs every 15 10:58 08/26/2024 10:59 08/26/2024 10:59 08/26/2024 minutes Tila Hampton Natalie Yoder, D.O. R.N. R.NKaye 2 of 3 Order Sheet IV Saline Lock 10:58 08/26/2024 10:59 08/26/2024 10:59 08/26/2024 Tila Hampton Natalie Yoder, D.O. R.N. R.NKaye Vitals - Orthostatic 13:15 08/26/2024 13:33 08/26/2024 13:33 08/26/2024 Tila Hampton Natalie Yoder, D.O. R.N. R.NKaye [Electronically signed by Kevin Garcia D.O. (08/27/2024 00:13 EST)] 3 of 3 ED PHYSICIAN CLINICAL REPORT Observed: 08/26/2024 10:39 AM Status: F Source: [facility] Narrative Physician Clinical Narrative [facility] [address] [place] [address] [phone] 08/26/2024 Patient: JAQUELIN SZYMANSKI Sex: Female : [...] palpitations. PAST HISTORY 1 of 11 Narrative Warren's Disease Diabetes Mellitus Type 2 Grave's Disease [...] tablet Allergies: azithromycin Excedrin Migraine latex Neosporin (azp-rlu-xckyq) SOCIAL HISTORY Never smoker. No alcohol use. [...] EST 4 of 11 Narrative 08/26/2024 11:47 [place] # 0.75 x10/UL 0.20 - 1.00 Final [...] Final NORMAL EST NORMAL: 08/26/2024 13:17 Sp Valier 1.010 Final 1.010-1.030 EST NORMAL: 08/26/2024 13:17 [...] days, dispense 6 tablet. Refills 0. Pharmacy: [facility] - [address] [place] [address]. Follow-up: Follow up with your doctor in two. Call for an appointment. (Electronically signed by Kevin Garcia D.O. 08/27/24 00:12:59 EST) Generated by [facility] ED VITALS FLOW SHEET Observed: 10:39 AM Status: F Source: [facility] Vitals Vital Sign Flow Sheet [address] [place] [address] [phone] 08/26/2024 Patient: JAQUELIN SZYMANSKI Sex: Female : [...] Observed: 08/26/2024 10:39 AM Status: F Source: [address] [place] [address] [phone] 08/26/2024 Patient: JAQUELIN SZYMANSKI Sex: Female : 1995 Age: 29y Item Professional Category Description Facility Code Code Quantity Fee Total Nurse/E/M EMERGENCY 132321 1 $0.00 $0.00 DEPARTMENT VISIT MODERATE SEVERITY (28969-10) Grand Total $0.00 Providers Kevin Radha, D.O. Chief Complaint SINGLE SYNCOPAL EPISODE. Principal Diagnosis Syncope. Vomiting with nausea. 1 of 2 Superbill ICD-10 Codes R55: Syncope and collapse R11.2: Nausea with vomiting, unspecified 2 of 2 ED VISIT SUMMARY Observed: 08/26/2024 10:39 AM Status: F Source: [facility] Visit Overview Visit Overview [facility] [address] [place] [address] [phone] 08/26/2024 Patient: JAQUELIN SZYMANSKI Sex: Female : 1995 Age: 29y 08/27/2024 12:13 AM EST ED Arrival:10:39 08/26/2024 EST Status: Recent Travel:no Language:eng Adv Directive:No Isolation Status: Ethnicity:N Fall Risk:risk Infectious Disease Exposure:no Measurements:5'5 / 165.1 Self-Harm Status:risk Sepsis Screen:negative cm 192.0 lb / 87.1 kg Chief Complaint:DIZZINESS and FAINTING ALLERGIES azithromycin Excedrin Migraine latex Neosporin (efd-xpm-hsokv) HOME MEDICATIONS Aimovig Autoinjector 70 mg/mL subcutaneous auto-injector atorvastatin 10 mg tablet clomipramine 50 mg capsule dexamethasone 0.5 mg tablet 1 of 3 Visit Overview eletriptan 40 mg tablet fludrocortisone 0.1 mg tablet Jardiance 10 mg tablet levothyroxine 125 mcg tablet lorazepam 1 mg tablet lurasidone 40 mg tablet topiramate 25 mg tablet PAST MEDICAL HISTORY / PROBLEMS Warren's Disease Diabetes Mellitus Type 2 Grave's Disease [...] Observed: 2023 10:39 AM Status: F Source: [facility] Nurse Narrative Nurse Clinical Narrative [place] [address] [place] [address] [phone] 08/26/2024 Patient: JAQUELIN SZYMANSKI Sex: Female : [...] This started just prior to arrival. 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 SEPSIS SCREEN: NEGATIVE. SIRS criteria negative. No possible sources of infection. -- 10:49 08/26/24 TOMAS Torrez R.N. 10:48 11/4/24. BP: 115/82 MAP: 93. HR: 88. RR: [...] fludrocortisone 0.1 mg tablet -- 10:47 08/26/24 TOMAS Torrez R.N. eletriptan 40 mg tablet -- 10:47 08/26/24 TOMAS Torrez R.N. lorazepam 1 mg tablet -- 10:47 08/26/24 TOMAS Torrez R.N. lurasidone 40 mg tablet -- 10:47 08/26/24 EST Tila Torrez R.N. Jardiance 10 mg tablet -- 10:47 08/26/24 TOMAS Torrez R.N. Aimovig Autoinjector 70 mg/mL subcutaneous auto-injector -- 10:47 08/26/24 TOMAS Torrez R.N. Allergies: Excedrin Migraine -- 10:47 08/26/24 TOMAS Torrez R.N. Neosporin (jfn-jsx-dbimg) -- 10:47 08/26/24 TOMAS Torrez R.N. latex -- 10:47 08/26/24 TOMAS Torrez R.N. azithromycin -- 10:47 08/26/24 TOMAS Torrez R.N. Problems: Warren's Disease -- 10:47 08/26/24 TOMAS Torrez R.N. Migraine Headache -- 10:47 08/26/24 TOMAS Torrez R.N. Grave's Disease -- 10:47 08/26/24 TOMAS Torrez R.N. Diabetes Mellitus Type 2 -- 10:47 08/26/24 TOMAS Torrez R.N. Seizure -- 10:47 08/26/24 TOMAS Torrez R.N. 10:44 08/26/24. Preferred pharmacy: [facility] Hal Felipe. -- 10:49 08/26/24 TOMAS Torrez R.N. ADDITIONAL SURGERIES: Gallbladder Surgery -- 10:47 [...] 84. RR: 16. O2 saturation: 99% -- 13:08/26/24 TOMAS Torrez R.N. 13:28 08/26/24. BP: 110/84 [...] Torrez R.N. 08/26/24 14:42:16 EST) Generated by [facility] 4 of 4 ED PHYSICIAN DISCHARGE REPORT Observed: 08/26/2024 10:39 AM Status: F Source: [facility] Discharge Instructions Discharge Summary [address] [address] [id number] 08/26/2024 Patient: JAQUELIN SZYMANSKI Sex: Female : 1995 Age: 29y Thank you for visiting [facility]. You have been evaluated today by Kevin Garcia D.O. for the following condition(s): Principal Diagnosis Syncope. Vomiting with nausea. INSTRUCTIONS Prescription Medications: cephalexin 500 mg tablet: Take 1 tablet by mouth twice a day for 3 days, dispense 6 tablet. Refills 0. Pharmacy: [facility] - [address] [place] [address]. Follow-up: Follow up with your doctor in two. Call for an appointment. You have been given the following additional information: Vomiting (Adult) Bladder Infection, Female (Adult) Patient Signature 1 of 8 Discharge Instructions Facility Binder Lockstitch Date/Time General Instructions with ExitWriter [address] [address] [phone] 08/26/2024 Patient: JAQUELIN SZYMANSKI Sex: Female : 1995 Age: 29y Thank you for visiting [facility]. You have been evaluated today by Kevin Garcia D.O. for the following condition(s): Principal Diagnosis Syncope. Vomiting with nausea. INSTRUCTIONS Prescription Medications: cephalexin 500 mg tablet: Take 1 tablet by mouth twice a day for 3 days, dispense 6 tablet. Refills 0. Pharmacy: [facility] - [address] [place] [phone]. Follow-up: Follow up with your doctor in [...] and water are not available, use alcohol-based internal wholesaler to keep from spreading the infection to [...] 1 10/26/2023 10:39 AM Status: F Source: [facility] Carbon Setter Medication Administration Record [facility] [address] [facility] [place] [address] [phone] 08/26/2024 Patient: JAQUELIN SZYMANSKI Sex: Female : 1995 Age: 29y MEASUREMENTS: Wt: 87.1 kg, Ht/Osmar: 65.0 in, BMI: 31.95 ALLERGIES: Excedrin Migraine, Neosporin (uyt-vdh-dbbnl), azithromycin, latex Medication Ordered Medication Administration Date/Time PROGRESS Observed: 08/21/2024 1:07 PM Status: COMPLETED [facility] [id number] Author: TRINA DAILY APRN.HUY Service: ? Author Type: Nurse Practitioner Type: [...] visit. Either the patient or their legal inside sales representative has been informed of the risks [...] to poor sleep. Recommend weekly trauma-based therapy. Celtaxsys did not work out. Alternative resources provided. [...] to some high school football games, birthday green party for child. States she hated it. [...] her anxiety and stress will cause another Davonte's flare up. Taking Latuda and Topamax as [...] bowel prep, will need repeated EGD W/O [facility] SPEC VARICIES INJ 09/21/2021 EXTRACTION ERUPTED TOOTH 08/2015 HYSTERECTOMY 08/13/2020 LAPAROSCOPIC CHOLECYSTECTOMY 06/09/2021 Byron Story REMOVAL OF OVARY(S) Right 12/28/2020 Dr Chavez THYROIDECTOMY TOTAL/COMPLETE 2015 [facility] VAGINAL HYSTERECTOMY ALLERGIES Allergen Reactions Prednisone Anaphylaxis Had at the same time as Z-geri - unsure which caused the anaphylaxis Inz-Zpwqncxwrarxc-J* Anaphylaxis Excedrin [Acetamino* Swelling Mouth, can take [...] level for monitoring purposes. 4. Look into [facility] for counseling or 180. 5. Follow up [...] DATE: August 21, 2024 TIME: 1:07 PM CNPN Observed: 08/19/2024 12:00 AM Status: COMPLETED Source: [facility] Telephone (EMQ) JAQUELIN SZYMANSKI ([id number]) 1995 F Date Time Provider Department 08/19/24 BRISEYDA KIM EMQ During your visit today, we recorded the [...] your request via staff message to the [employer] Auth Appeals Pool ([id number]). You can find templates listed below to support your appeal in [employer] (Epic drop down, select patient care, select send letter). If it is an urgent request, you can email the [place] auth Team at . Please make sure [...] Medical Necessity Apurva BRUSH Clindoc Wally Prior [employer] Machine Mechanic III Endocrinology AND Metabolism [place] Allergies As of Date: 08/19/2024 Noted Allergy Reaction PREDNISONE 12/23/2015 10 - Anaphylaxis Comments: Had at the same time as Z-geri - unsure which caused the anaphylaxis AXT-TQXMYIYTEFFZF-QCJQ-BUFFERS 02/27/2017 10 - Anaphylaxis EXCEDRIN (ACETAMINOPHEN-CAFFEINE) 06/05/2013 7 - Swelling Comments: Mouth, can take tylenol LATEX 07/08/2014 2 - Rash 4 - Hives Comments: at site NEOSPORIN (JMLAWWHW-CCPTXQPDDB-VK*04/21/2014 4 - Hives VOLTAREN (DICLOFENAC SODIUM) 09/29/2014 14 - Other: See Comments Comments: Nausea ZITHROMAX (AZITHROMYCIN) 07/30/2014 10 - Anaphylaxis Comments: Hospitalized on 07/03/14 for this Date Reviewed: 05/22/2024 Reviewed by: Mounika Begum MA - Fully Assessed Reason for Visit: Medication Preauthorization [914] Cmt: Mounjaro Prescriptions as of 08/19/2024 - atorvastatin (LIPITOR) [...] 03/20/2021 Recurrent major depression in partial remission*03/21/2021 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 Type: ER Account: [id number] Location: [facility] Ordering: LEANDRO RIZZO Exam Date: 08/15/2024/18:11 Family Phys: KEVIN BRADLEY Charge Code: [id number] Physician: Greenwood Order #: [id number] Dose#: [id number] PROCEDURE: CT FACIAL BONES WITHOUT CONTRAST COMPARISON: [facility], CT, FACIAL BONES W/O CON, 01/16/2024, 14:22. [...] Observed: 08/16/20 9:08 AM Status: F Source: [place] [address] Patient: JAQUELIN SZYMANSKI Phone#: : 1995 Age: 29 Gender: F Pt. Type: ER Account: [id number] Location: 052 Ordering: LEANDRO RIZZO Exam Date: 08/15/2024/18:11 Family Phys: KEVIN BRADLEY Charge Code: 322032 Physician: Greenwood Order #: [id number] Dose#: [id number] PROCEDURE: CT BRAIN WITHOUT CONTRAST COMPARISON: [facility], CT, BRAIN W/O CON, 04/11/2024, 16:39. INDICATIONS: [...] Gretchen Espinoza MD on 08/16/2024 at 9:08 [facility] Observed: 08/16/2024 12:00 AM Status: COMPLETED Source: [facility] Telephone (FAMWS) JAQUELIN SZYMANSKI ([id number]) 1995 F Date Time Provider Department 08/16/24 KEVIN BRADLEY [facility] During your visit today, we recorded the following information about you: Hayde Garsia LPN 08/16/2024 12:17 PM Signed Patient calling, states she went to the [facility] ER last night for a migraine. [...] be concerned. She will be able to spanish moss picker her migraine medication tomorrow. Asking if PCP [...] Comments: Had at the same time as TadSantigeri - unsure which caused the anaphylaxis UOF-VHIREVKHMPWCV-XMIN-BUFFERS 02/27/2017 10 - Anaphylaxis EXCEDRIN (ACETAMINOPHEN-CAFFEINE) 06/05/2013 7 - Swelling Comments: Mouth, can take tylenol LATEX 07/08/2014 2 - Rash 4 - Hives Comments: at site NEOSPORIN (VCMRJADA-ZFHWWKZWDS-IP*04/21/2014 4 - Hives VOLTAREN (DICLOFENAC SODIUM) 09/29/2014 14 - Other: See Comments Comments: Nausea ZITHROMAX (AZITHROMYCIN) 07/30/2014 10 - Anaphylaxis Comments: Hospitalized on 07/03/14 for this Date Reviewed: 05/22/2024 Reviewed by: Mounika Beugm MA - Fully Assessed Reason for Visit: [...] GOLDMAN on 08/16/24 CBC + DIFF Collected: 5:51 PM Status: F Source: [facility] TYPE CODE TESTS RESULT OUT OF [...] 4.94 1.50 - 7.10 x10EE3 /UL LAB [place] #(INC) [place] # 0.66 0.20 - 1.00 x10EE3 /UL LAB EO #([facility]) EO # 0.06 0.00 - 0.50 x10EE3/U L LAB Baso #([facility]) Baso # 0.02 0.00 - 0.10 x10EE3 /UL LAB MANUAL DIFF([facility]) MANUAL DIFF N/A LAB MORPHOLOGY([facility]) MORPHOLOGY N/A Performed By: #### [id number] ## ## [facility],[address] [place] [address] CMP WITH EGFR Collected: 4 5:51 PM Status: F Source: [facility] TYPE CODE TESTS RESULT OUT OF RANGE REFERENCE UNITS LAB CMP with eGFR(INC) CMP with eGFR Result Comment: COMPREHENSIV E METABOLIC PANEL LAB SODIUM(INC) SODIUM 139 136 - 145 mmol/l LAB POTASSIUM(IN C) POTASSIUM 3.6 3.5 - 5.1 mmol/L LAB CHLORIDE(INC ) CHLORIDE 102 98 - 107 mmol/L LAB CO2(INC) CO2 27.1 21.0 - 32.0 mmol/L LAB GLUCOSE([facility]) GLUCOSE 84 74 - 106 mg/dl LAB BUN([facility]) BUN 13 7 - 18 mg/dl LAB CREATININE([facility]) CREATININE 1.10 High 0.55 - 1.02 mg/dl LAB AST/SGOT(LOINC ) AST/SGOT 19 13 - 39 U/L LAB ALK PHOS(LOINC) ALK PHOS 120 High 46 - 116 U/L LAB CALCIUM(LOINC) CALCIUM 9.1 8.5 - 10.1 mg/dl LAB TOTAL PROTEIN(LOINC) TOTAL PROTEIN 8.1 6.4 - 8.2 g/dl LAB ALBUMIN(LOINC) ALBUMIN 3.6 3.4 - 5.0 g/dL LAB GLOBULIN(INC ) GLOBULIN 4.5 High 1.5 - 3.8 [...] OF AGE AND OLDER. Performed By: #### [id number] ## ## [facility],[address] [place] [address] ED MED ADMINISTRATION DETAIL Observed: 1 4:40 PM Status: F Source: [facility] Carbon Setter Medication [place] [address] [id number] 08/15/2024 Patient: JAQUELIN SZYMANSKI Sex: Female : 1995 Age: 29y MEASUREMENTS: Wt: 88.0 kg, Ht/Osmar: 65.0 in, BMI: 32.28 ALLERGIES: Excedrin Migraine, Neosporin (pgw-hhw-vsupf), azithromycin, latex Medication Ordered Medication Administration Date/Time [...] Scanned Stephanie Samuel R.N. 1 of 2 Carbon Setter Medication Ordered Medication Administration Date/Time MORPHine IVP [...] Observed: 08/15/2024 4:40 PM Status: F Source: [facility] Visit Overview Visit Overview [address] [place] [address] [phone] 08/15/2024 Patient: JAQUELIN SZYMANSKI Sex: Female : 1995 Age: 29y 08/15/2024 07:48 PM EDT ED Arrival:16:40 08/15/2024 EDT Status:not Recent Travel:no Language:eng Adv Directive: Isolation Status: Ethnicity:N Fall Risk:no risk Infectious Disease Exposure:no Measurements:5'5 / 165.1 Self-Harm Status:risk Sepsis Screen:negative cm 194.0 lb / 88.0 kg Chief Complaint:FACIAL PAIN and MIGRAINE HEADACHE ALLERGIES azithromycin Excedrin Migraine latex Neosporin (jkc-pmo-oqbyb) HOME MEDICATIONS Unable To Obtain PAST MEDICAL HISTORY / PROBLEMS 3 Visit Overview Warren's Disease Diabetes Mellitus Type 2 Grave's Disease [...] SITE INFORMATION INTAKE OUTPUT REASSESMENT (most recent) of 3 Visit Overview 18:27 08/15/24. Oxygen [...] SUMMARY Observed: 4:40 PM Status: F Source: [facility] Coding Summary Coding Summary [address] [address] [id number] 08/15/2024 Patient: JAQUELIN SZYMANSKI Sex: Female : 1995 Age: 29y ICD-10 Codes R51: Headache This is a partial abstract of information documented in the full record. Interpreter must use independent judgment in selecting codes. CPT copyright 2022 [employer]. All Rights Reserved. 1 of 1 ED FACILITY CODING SUMMARY Observed: 4:40 PM Status: F Source: [facility] Facility Coding Facility Coding Summary [address] [address] [id number] 08/15/2024 Patient: JAQUELIN SZYMANSKI Sex: Female : 1995 Age: 29y Providers: Leandro Rizzo M.D. DIAGNOSTIC WORKUP Chief Complaint SWELLING OF JAW / FACE facial pain. -- Leandro Rizzo M.D. Principal Diagnosis Acute nontraumatic pain in the head and face. -- Leandro Rizzo M.D. ICD-10 Codes R51: Headache PROCEDURES Procedures from Providers: Procedures from Nurses/Facility: IV Hydration (CPT: 82093) IV Push MORPHine IVP (CPT: 39149) IV Push MethylPREDNISolone Sodium Succ (Solu-Medrol) IVP (CPT: 26743) IV Push Ondansetron IVP (CPT: 07012) IV Push MORPHine IVP (CPT: 76394) SUPPLIES 1 of 2 Facility Coding NIDHI 90336-25 This is a partial abstract of information documented in the full record. Interpreter must use independent judgment in selecting codes. CPT copyright 2022 [employer]. All Rights Reserved. 2 of 2 ED PHYSICIAN CLINICAL REPORT Observed: 1 4:40 PM Status: F Source: [facility] Narrative Physician Clinical Narrative [facility] [address] [place] [address]. [place] [address] [phone] 08/15/2024 Patient: JAQUELIN SZYMANSKI Sex: Female : [...] medications Allergies: azithromycin Excedrin Migraine latex Neosporin (ncy-qbl-wrqdy) SOCIAL HISTORY Does not use tobacco. Resides [...] 1.50 - 7.10 Final EDT 08/15/2024 18:31 [place] # 0.66 x10/UL 0.20 - 1.00 Final [...] problems arise. Prescription Medications: Medications prescribed: Percocet ([facility]). Percocet 5 mg-325 mg tablet: 1 tablet by mouth three times a day, dispense 6 tablet. Refills 0. Pharmacy: [facility] - [address] [place] [address]. Phone: Follow-up: Follow up with your doctor tomorrow if not better. (Electronically signed by Leandro Rizzo M.D. 08/15/24 19:33:22 EDT) [facility] by [facility] 8 of 8 ED SUPER BILL Observed: 08/15/2024 4:40 PM Status: F Source: [address] [address] [phone] 08/15/2024 Patient: JAQUELIN SZYMANSKI Sex: Female : 1995 Age: 29y Item Facility Professional Category Description Code Code Quantity Fee Total Nurse/E/M EMERGENCY 367975 1 $0.00 $0.00 DEPARTMENT VISIT HIGH/URGENT SEVERITY (23006-90) Nurse/IV/IM/Infusions Hydration 300740 1 $0.00 $0.00 additional hour (66023) Nurse/IV/IM/Infusions IVP additional 422975 2 $0.00 $0.00 push (64563) Nurse/IV/IM/Infusions IVP initial 655424 1 $0.00 $0.00 (68137) Nurse/IV/IM/Infusions IVP same med 920211 1 $0.00 $0.00 (31 min apart) (29902) Grand Total $0.00 Providers Leandro Rizzo M.D. 1 of 2 [facility] Chief Complaint SWELLING OF JAW / FACE facial pain. Principal Diagnosis Acute nontraumatic pain in the head and face. ICD-10 Codes R51: Headache 2 of 2 ED PHYSICIAN DISCHARGE REPORT Observed: 08/15/2024 4:40 PM Status: F Source: [facility] Discharge Instructions Discharge Summary [address] [address] [id number] 08/15/2024 Patient: JAQUELIN SZYMANSKI Sex: Female : 1995 Age: 29y Thank you for visiting [facility]. You have been evaluated today by Leandro Rizzo M.D. for the following condition(s): Principal Diagnosis Acute nontraumatic pain in the head and face. INSTRUCTIONS No strenuous activity. Rest today. Warnings: GENERAL WARNINGS: Return or contact your physician immediately if your condition worsens or changes unexpectedly, if not improving as expected, or if other problems arise. Prescription Medications: Medications prescribed: Percocet ([facility]). Percocet 5 mg-325 mg tablet: 1 tablet by mouth three times a day, dispense 6 tablet. Refills 0. Pharmacy: [facility] - [address] [place] [address]. Phone: Follow-up: Follow up with your doctor tomorrow if not better. You have been given the following additional information: Acute Pain, Uncertain Cause 1 of 4 Discharge Instructions Patient Signature Facility Binder Lockstitch Date/Time General Instructions with ExitWriter [address] [address] [id number] 08/15/2024 Patient: JAQUELIN SZYMANSKI Sex: Female : 1995 Age: 29y Thank you for visiting [facility]. You have been evaluated today by Leandro Rizzo M.D. for the following condition(s): Principal Diagnosis Acute nontraumatic pain in the head and face. INSTRUCTIONS No strenuous activity. Rest today. Warnings: GENERAL WARNINGS: Return or contact your physician immediately if your condition worsens or changes unexpectedly, if not improving as expected, or if other problems arise. Prescription Medications: Medications prescribed: Percocet ([employer]). Percocet 5 mg-325 mg tablet: 1 tablet by mouth three times a day, dispense 6 tablet. Refills 0. Pharmacy: [facility] - [address] [place] [address]. Phone: 2 of 4 Discharge Instructions Follow-up: [...] prescribed for pain, you can take an iyog-bgm-dknapiu pain medicine such as ibuprofen or acetaminophen. [...] as directed by your healthcare provider Activities [address] [place] [address] [phone] 3 of 4 Discharge Instructions 08/15/2024 Patient: JAQUELIN SZYMANSKI Sex: Female : 1995 Age: 29y You have been given the following instructions regarding activity, work, and/or school. No strenuous activity. Rest today. Facility [facility] 4 of 4 ED NURSES CLINICAL NOTE Observed: 2023 4:40 PM Status: F Source: [facility] Nurse Narrative Nurse Clinical Narrative [facility] [address] [place] [address] [phone] 08/15/2024 Patient: JAQUELIN SZYMANSKI Sex: Female : 1995 Age: 29y Disposition: Discharge to Home Disposition Decision Time: 19:09 08/15/2024 Departure Time: 19:47 08/15/2024 TRIAGE Arrived by private vehicle. Historian: patient. 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 Pt states that pain is worse today [...] sources of infection. -- 16:56 08/15/24 EDT Candelaria SebastianP. 16:46 08/15/24. BP: 117/85 MAP: 94 mmHg. HR: 91 bpm. -- 16:54 08/15/24 EDT Harvinder Sebastian.-P. 16:55 08/15/24. Pain level now 10/10. Patient conversant. Describes the pain as sharp. Constant. Physician notified. It is described as radiating to the left ear and left neck. -- 16:55 08/15/24 EDT Marylu Sebastian-P. 16:55 08/15/24. Pain level now 10/10. Patient conversant. Describes the pain as sharp. Constant. Physician notified. It is described as radiating to the left ear and left neck. -- 16:57 08/15/24 EDT Candelaria SebastianPKaye Chief Complaint: MIGRAINE HEADACHE and FACIAL PAIN. 16:57 08/15/24. -- 16:57 08/15/24 EDT Candelaria SebastianPKaye 16:58 08/15/24. BP: 117/85 MAP: 96. HR: 88. RR: 18. O2 saturation: 100% Temperature: 97.8 F. Pain level now 08/01. -- 16:58 08/15/24 EDT Candelaria SebastianPKaye Acuity: LEVEL 3. 17:06 08/15/24. -- 17:06 08/15/24 EDT Stephanie Samuel R.N. 1 of 5 Nurse Narrative Acuity: LEVEL 4. 17:23 08/15/24. -- 17:23 08/15/24 EDT Tila Torrez R.N. Measurements: 16:53 08/15/24 Wt: 88.0 kg, Ht/Osmar: 65.0 in, BMI: 32.28 -- 16:53 08/15/24 EDT Candelaria SebastianPKaye Medications: unable to obtain home medications -- 16:53 08/15/24 EDT Candelaria SebastianP. atorvastatin 10 mg tablet -- 17:03 08/15/24 EDT Candelaria SebastianP. levothyroxine 125 mcg tablet -- 17:03 08/15/24 EDT Marylu Sebastian-PKaye topiramate 25 mg tablet: Take 1 tablet by mouth daily at bedtime. -- 17:03 08/15/24 EDT Candelaria SebastianPKaye dexamethasone 0.5 mg tablet: TAKE 1 TABLET BY MOUTH EVERY 6 HOURS -- 17:03 08/15/24 EDT Marylu Sebastian-P. clomipramine 50 mg capsule -- 17:03 08/15/24 EDT Candelaria SebastianPKaye fludrocortisone 0.1 mg tablet -- 17:03 08/15/24 EDT Candelaria SebastianPKaye eletriptan 40 mg tablet -- 17:03 08/15/24 EDT Candelaria SebastianPaKye lorazepam 1 mg tablet: Take 1 tablet by mouth two times a day for 60 days. -- 17:03 08/15/24 EDT Jatinder Rodriguez E.M.T.-P. lurasidone 40 mg tablet -- 17:03 08/15/24 EDT Jatinder Rodriguez E.M.T.-P. Jardiance 10 mg tablet: Take 1 tablet by mouth daily with breakfast. -- 17:03 08/15/24 EDT Jatinder Rodriguez E.M.T.-P. Aimovig Autoinjector 70 mg/mL subcutaneous auto-injector -- 17:03 08/15/24 EDT Jatinder Rodriguez E.M.T.-P. Allergies: Excedrin Migraine -- 16:49 08/15/24 EDT Jatinder Rodriguez E.M.T.-P. Neosporin (cdh-xfn-rfdzc) -- 16:49 08/15/24 EDT Jatinder Rodriguez E.M.T.-P. latex -- 16:50 08/15/24 EDT Jatinder Rodriguez E.M.T.-P. azithromycin -- 16:50 08/15/24 EDT Jatinder Rodriguez E.M.T.-P. Problems: Davonte's Disease -- 16:50 08/15/24 EDT Jatinder Rodriguez [...] Brakes of bed on. -- 18:27 08/15/24 EDT Stephanie Samuel R.N. 19:07 08/15/24. MethylPREDNISolone Sodium Succ (Solu-Medrol) IVP 125 mg given over 2 minute(s) via Site# 1. -- 19:07 08/15/24 EDT Stephanie Samuel R.N. 19:07 08/15/24. MORPHine IVP 6 mg given over 2 minute(s) via Site# 1. -- 19:08 08/15/24 EDT Stephanie aSmuel R.N. 19:11 08/15/24. IV NS 0.9 %: Medication Discontinued. IV infused. Total amount infused: 1000 mL. -- 19:11 08/15/24 EDT Stephanie Samuel R.N. 19:11 08/15/24. MORPHine IVP: Medication Response. No adverse reaction. -- 19:11 08/15/24 EDT Stephanie Samuel R.N. 19:11 08/15/24. Ondansetron IVP: Medication Response. No adverse reaction. -- 19:11 08/15/24 EDJuancarlos Samuel R.N. DISPOSITION / DISCHARGE 16:46 08/15/24. BP: 117/85 MAP: 94 mmHg. HR: 91 bpm. -- 19:25 08/15/24 EDT Stephanie Samuel R.N. 4 of 5 Nurse Narrative [...] O2 saturation: 99%. -- 19:25 08/15/24 EDT Stephanie Samuel R.N. 17:00 08/15/24. BP: 116/80 MAP: 90 mmHg. HR: 85 bpm. -- 19:25 08/15/24 EDJuancarlos Samuel R.N. 17:08 08/15/24. HR: 90 bpm. O2 saturation: 98%. -- 19:25 08/15/24 EDJuancarlos Samuel R.N. 17:15 08/15/24. BP: 115/83 MAP: 91 mmHg. HR: 87 bpm. -- 19:25 08/15/24 EDJuancarlos Samuel R.N. 17:23 08/15/24. HR: 94 bpm. O2 saturation: 98%. -- 19:25 08/15/24 EDT Stephanie Samuel R.N. 17:30 08/15/24. BP: 118/73 MAP: 81 mmHg. HR: 89 bpm. -- 19:25 08/15/24 EDT Stephanie Samuel R.N. 17:43 08/15/24. HR: 90 bpm. O2 saturation: 97%. -- 19:25 08/15/24 EDT Stephanie Samuel R.N. 17:45 08/15/24. BP: 113/78 MAP: 87 mmHg. HR: 87 bpm. -- 19:25 08/15/24 EDJuancarlos Samuel R.NKaye 17:58 08/15/24. HR: 93 bpm. O2 saturation: 100%. -- 19:25 08/15/24 EDJuancarlos Samuel R.N. 18:00 08/15/24. BP: 124/86 MAP: 98 mmHg. HR: 89 bpm. -- 19:25 08/15/24 EDJuancarlos Samuel R.NKaye 18:18 08/15/24. HR: 95 bpm. O2 saturation: 97%. -- 19:25 08/15/24 ASIM Samuel R.NKaye 18:28 08/15/24. HR: 93 bpm. O2 saturation: 97%. -- 19:25 08/15/24 EDT Stephanie Samuel R.N. 18:30 08/15/24. BP: 118/84 MAP: 91 mmHg. HR: 91 bpm. -- 19:25 08/15/24 EDJuancarlos Samuel R.NKaye 18:33 08/15/24. HR: 94 bpm. O2 saturation: 98%. -- 19:25 08/15/24 EDJuancarlos Samuel R.NKaye 18:53 08/15/24. HR: 82 bpm. O2 saturation: 100%. -- 19:25 08/15/24 EDT Stephanie Samuel R.N. 19:00 08/15/24. BP: 126/89 MAP: 108 mmHg. HR: 72 bpm. -- 19:25 08/15/24 EDT Stephanie Samuel R.N. 19:15 08/15/24. BP: 136/84 MAP: 101 mmHg. HR: 88 bpm. -- 19:25 08/15/24 EDT Stephanie Samuel R.N. 19:23 08/15/24. HR: 98 bpm. O2 saturation: 93%. -- 19:25 08/15/24 EDT Stephanie Samuel R.N. 19:24 08/15/24. Site #1 removed. Bandage, pressure dressing and manual pressure applied. (CATHETER IS INTACT BLEEDING CONTROLLED.) -- 19:24 08/15/24 EDT Stephanie Samuel R.N. 19:26 08/15/24. Condition at departure: improved. Reviewed warnings. Reviewed medication(s) (PERCOCET 5/325). Reviewed referrals (F/U WITH PCP). Written instructions provided in Moroccan. The patient was discharged by the physician. The patient was discharged home and accompanied by spouse. The patient left ambulatory and via private vehicle. Patient driving. -- 19:26 08/15/24 EDT Stephanie Samuel R.N. Departure time: 19:47 08/15/2024. -- 19:47 08/15/24 EDT Stephanie Samuel R.N. (Electronically signed by Stephanie Samuel R.N. 08/15/24 19:48:07 EDT) Generated by [facility] 5 of 5 ED ORDER SHEET (CPOE ONLY) Observed: 4:40 PM Status: F Source: [facility] Order Sheet Order Sheet [address] [place] [address] [id number] 08/15/2024 Patient: JAQUELIN SZYMANSKI Sex: Female : 1995 Age: 29y MEASUREMENTS: Wt: 88.0 kg, Ht/Osmar: 65.0 in, BMI: 32.28 ALLERGIES: Excedrin Migraine, Neosporin (tas-bzz-ztvkk), azithromycin, latex MEDICATION/IV/DRIP/FLUID ORDERS Order Description Priority Entered Acknowledged Completed IV NS 0.9 %1000 mL at 999 17:42 08/15/2024 17:53 17:56 mL/hr (NOW x1) Leandro Rizzo M.D. 08/15/2024 08/15/2024 Stephanie Guevara R.N. R.N. MORPHine IVP4 mg (NOW x1, 17:42 08/15/2024 17:53 17:55 HIGH ALERT MEDICATION) Leandro Rizzo M.D. 08/15/2024 08/15/2024 Stephanie Guevara R.N. R.NKaye Reason for ordering with alerts: Does not appear to be a true allergy --17:42 08/15/2024 Leandro Rizzo M.D. Ondansetron IVP4 mg (NOW x1) 17:42 08/15/2024 17:53 17:57 Leandro Rizzo M.D. 08/15/2024 08/15/2024 Stephanie Guevara R.NKaye R.N. MORPHine IVP6 mg (NOW x1, 18:58 08/15/2024 19:05 19:08 HIGH ALERT MEDICATION) Leandro Rizzo M.D. 08/15/2024 08/15/2024 Stephanie Guevara, 1 of 3 Order Sheet R.N. R.N. Reason for ordering with alerts: Clinical consideration given --18:58 08/15/2024 Leandro Rizzo M.D. MethylPREDNISolone Sodium 18:58 08/15/2024 19:05 19:07 Succ (Solu-Medrol) URE927 mg Leandro Rizzo M.D. 08/15/2024 08/15/2024 (NOW x1) Stephanie Guevara R.NKaye RKayeNKaye LAB ORDERS Order Description Priority Entered Acknowledged Collected Completed CBC w Diff Stat Stat 17:42 08/15/2024 17:45 08/15/2024 17:53 08/15/2024 Lyric Sierra Samuel Burgett, R.N. R.N. CMP Stat Stat 17:42 08/15/2024 17:45 08/15/2024 17:53 08/15/2024 Lyric Sierra Samuel Burgett, R.N. R.N. DIAGNOSTIC STUDY ORDERS Order Description [...] Observed: 08/07/2024 9:03 AM Status: COMPLETED [id number] Author: KEVIN BRADLEY MD Service: ? Author [...] visit. Either the patient or their legal inside sales representative has been informed of the risks [...] Z-geri - unsure which caused the anaphylaxis Kcf-Wxltcobzamivs-C* Anaphylaxis Excedrin [Acetamino* Swelling Mouth, can take [...] bowel prep, will need repeated EGD W/O [facility] SPEC VARICIES INJ 09/21/2021 EXTRACTION ERUPTED TOOTH [...] Observed: 08/07/2024 12:00 AM Status: COMPLETED Source: [facility] Telephone ([email or web address].ws) JAQUELIN SZYMANSKI ([id number]) 1995 F Date Time Provider Department 08/07/24 KEVIN BRADLEY [facility] During your visit today, we recorded [...] Z-geri - unsure which caused the anaphylaxis [id number]-KQXXUAGWVGAPY-CTFE-BUFFERS 02/27/2017 10 - Anaphylaxis EXCEDRIN (ACETAMINOPHEN-CAFFEINE) 06/05/2013 7 - Swelling Comments: Mouth, can take tylenol LATEX 07/08/2014 2 - Rash 4 - Hives Comments: at site NEOSPORIN (XHMBVJHZ-CKIIXQJLGO-DM*04/21/2014 4 - Hives VOLTAREN (DICLOFENAC SODIUM) 09/29/2014 [...] [R76.8] 01/15/2022 Paresthesias [R20.2] 01/15/2022 Adrenal insufficiency (Warren's disease) (HCC)*08/14/2022 SLE (systemic lupus erythematosus related [...] Encounter Status:Closed by MARILUZ GOLDMAN on 08/08/24 MARIXA Observed: 08/05/2024 12:00 AM Status: COMPLETED Source: [facility] Telephone (ENDOMN) JAQUELIN SZYMANSKI ([id number]) 1995 F Date Time Provider Department 08/05/24 BRISEYDA KIM During your visit today, we recorded the following information about you: Halina Campbell 08/05/2024 2:35 PM Signed Received the following notification from [facility]. Please advise, thank you! Halina Campbell Clinical Nursing Manager II Endocrinology AND Metabolism [place] [facility] X-20, F-20 Allergies As of Date: 08/05/2024 Noted Allergy Reaction PREDNISONE 12/23/2015 10 - Anaphylaxis Comments: Had at the same time as Z-geri - unsure which caused the anaphylaxis [id number]-ZQPWRPKGTFOCN-IHDJ-BUFFERS 02/27/2017 10 - Anaphylaxis EXCEDRIN (ACETAMINOPHEN-CAFFEINE) 06/05/2013 7 - Swelling Comments: Mouth, can take tylenol LATEX 07/08/2014 2 - Rash 4 - Hives Comments: at site NEOSPORIN ([id number]-HEEHYTRPIP-RA*04/21/2014 4 - Hives VOLTAREN (DICLOFENAC SODIUM) 09/29/2014 [...] [R76.8] 01/15/2022 Paresthesias [R20.2] 01/15/2022 Adrenal insufficiency (Warren's disease) (HCC)*08/14/2022 SLE (systemic lupus erythematosus related [...] NAME / CODE REACTION SEVERITY SOURCE 02/27/2017 DRUG/004501339(SNO MED CT) ASA-ACETAMINOPHEN -CAFF-BUFFERS ANAPHYLAXIS [facility] 12/23/2015 DRUG INGREDI/316256416( SNOMED CT) PREDNISONE ANAPHYLAXIS [facility] 09/29/2014 DRUG INGREDI/083272976( SNOMED CT) DICLOFENAC SODIUM OTHER: SEE C [facility] 07/30/2014 DRUG INGREDI/263887185( SNOMED CT) AZITHROMYCIN ANAPHYLAXIS [facility] 07/08/2014 DRUG INGREDI/083662565( SNOMED CT) LATEX RASH [facility] 04/21/2014 DRUG/900276166(SNO MED CT) NEOMYCIN-BACITRAC IN-POLYMYXIN HIVES [facility] 06/05/2013 DRUG/828836652(SNO MED CT) ACETAMINOPHEN-CAF FEINE SWELLING [facility] Drug Allergy/095901422( SNOMED CT) ASPIRIN/27932793( RXNORM) U [facility] Environmental Allergy/755755612( SNOMED CT) LATEX Moderate (Severity Modifier) (Qualifier Value) [facility] Drug Allergy/466658895( SNOMED CT) ZITHROMAX/1624862 9(RXNORM) ANAPHYLAXIS Severe (Severity Modifier) (Qualifier Value) [facility] Drug Allergy/053349449( SNOMED CT) ZITHROMAX Z-GERI/99672076(RX NORM) ANAPHYLAXIS Severe (Severity Modifier) (Qualifier Value) [facility] Drug Allergy/021443977( SNOMED CT) EXCEDRIN/46226463 (RXNORM) Moderate (Severity Modifier) (Qualifier Value) [facility] Drug Allergy/221558717( SNOMED CT) NEOSPORIN/6242095 0(RXNORM) Moderate (Severity Modifier) (Qualifier Value) [facility] ENCOUNTERS ADMIT/DISCHARGE ACCOUNT NUMBER ADMITTING ENCOUNTER CLASS LOCATION SOURCE 07/19/2025/07/19/20 25 [id number] ANJU VILLAGRAN DO Emergency BuildinR oom: ERBed: 1 [facility] 06/09/2025/06/09/20 25 [id number] Ambulatory [facility] HospitalBuild ing:[facility] 06/09/2025 [id number] Ambulatory [facility] HospitalBuild ing:WORG [facility] 06/09/2025/06/09/20 25 [id number] [facility] [id number] RODNEY MACE JR Emergency BuildinR oom: ERBed: 2 [facility] 06/05/2025/06/05/20 25 [id number] KALANI DIAZ MD Emergency BuildinR oom: ERBed: 2 [facility] 06/04/2025/06/04/20 25 [id number] [facility] [facility] 05/05/2025/05/05/20 25 [id number] LEANDRO RIZZO Emergency BuildinR oom: ERBed: W4 [facility] 04/02/2025/04/02/20 [id number] [facility] 03/06/2025/03/06/20 [id number] Ambulatory [facility] HospitalBuild ing:FPMBHT [facility] 02/02/2025/02/03/20 [id number] LEANDRO RIZZO Emergency BuildinR oom: ERBed: 6 [facility] 01/01/2025/01/02/20 25 [id number] [facility] 12/18/2024/12/18/19 [id number] Ambulatory [facility] HospitalBuild ing:WOFM [facility] 11/20/2024/11/20/19 [id number] [facility] 11/10/2024/11/10/19 25 [id number] RODNEY MACE JR Emergency BuildinR oom: ERBed: 5 [facility] 10/20/2024/10/20/20 24 [id number] BRYCE JUSTIN Emergency BuildinR oom: ERBed: 3 [facility] 10/07/2024/10/07/20 24 [id number] RODNEY MACE JR Emergency BuildinR oom: ERBed: W2 [facility] 09/25/2024/09/25/20 24 [id number] Ambulatory [facility] HospitalBuild ing:PSYCHA [facility] 09/25/2024/09/25/20 24 [id number] [facility]ENW[facility] 08/26/2024/08/26/20 24 [id number] KEVIN GARCIA Emergency BuildinR oom: ERBed: 5 [facility] 08/21/2024/08/21/20 24 [id number] [facility] 08/15/2024/08/15/20 [id number] LEANDRO RIZZO Emergency BuildinR oom: ERBed: 1 [facility] 08/07/2024/08/07/20 [id number] [facility] PAYERS ENCOUNTER GUARANTOR PAYER SUBSCRIBER SOURCE 07/19/2025 JAQUELIN Cardenas LUISAB: [id number] [place], [place] [address]Shj: (HP) Primary Insurance:[place] [employer] OUTPATIENTPolicy Number: [id number] Date:Plan Name:X2 JAQUELIN Cardenas LUISAB: [id number] [place] [address] [facility] 06/09/2025 Primary Insurance:[facility] MEDICAIDPolicy Number: [id number] Date:6512-28-04Ivhn Name:X JAQUELIN DESAIBRENDAB: [id number] [place] [address] [facility] 06/09/2025 Primary Insurance:[facility] MEDICAIDPolicy Number: [id number] Date:3253-01-09Tsor Name:X JAQUELIN DESAISTEPHANIEDOB: [id number] [place] [address] [facility] 06/09/2025 Primary Insurance:[facility] MEDICAIDPolicy Number: [id number] Date:4832-44-01Sbun Name:X JAQUELIN DESAISTEPHANIEDOB: [id number] [place] [address] [facility] 06/06/2025 JAQUELIN Cardenas LUISAB: [id number] [place], [place] [address]Ptr: (HP) Primary Insurance:[employer] [employer] OUTPATIENTPolicy Number: [id number] Date:Plan Name:X2 JAQUELIN Cardenas LUISAB: [id number] [place] [address] [facility] 06/05/2025 JAQUELIN Cardenas LUISAB: [id number] [place], [place] [address]Ald: (HP) Primary Insurance:[employer] [employer] OUTPATIENTPolicy Number: [id number] Date:Plan Name:X2 JAQUELIN SZYMANSKIDOB: [id number] [place] [address] [facility] 06/04/2025 Primary Insurance:[facility] MEDICAIDPolicy Number: [id number] Date:4918-58-20Bsiq Name:Renato SZYMANSKIB: [id number] [place], [place] [id number] [place] [address] 05/05/2025 JAQUELIN Cardenas LUISAB: [id number] [place], [place] [address]Wmx: (HP) Primary Insurance:[employer] OUTPATIENTPolicy Number: [id number] Date:Plan Name:X2 JAQUELIN SZYMANSKIB: [id number] [place] [address] [facility] 04/02/2025 Primary Insurance:[facility] MEDICAIDPolicy Number: [id number] Date:8936-38-05Ahcl Name:Renato SZYMANSKIB: [id number] [place] [address] [facility] 2025 Primary Insurance:[facility] MEDICAIDPolicy Number: [id number] Date:1850-01-46Bcsj Name:Renato SZYMANSKIB: [id number] [place] [address] [facility] 02/02/2025 JAQUELIN Cardenas LUISAB: [id number] [place], [place] [address]Cyk: (HP) Primary Insurance:[employer] [employer] OUTPATIENTPolicy Number: [id number] Date:Plan Name:X2 JAQUELIN SZYMANSKIDOB: [id number] [place] [address] [facility] 01/01/2025 Primary Insurance:[facility] MEDICAIDPolicy Number: [id number] Date:3389-14-37Rctn Name:X JAQUELIN DESAITODOB: [id number] [place] [address] [facility] 12/18/2024 Primary Insurance:[facility] MEDICAIDPolicy Number: [id number] Date:0475-85-53Wrop Name:X JAQUELIN SZYMANSKIDOB: [id number] [place] [address] [facility] 11/20/2024 Primary Insurance:[facility] MEDICAIDPolicy Number: [id number] Date:2664-15-41Fqvu Name:X JAQUELIN DESAITODOB: [id number] [place] [address] [facility] 11/10/2024 JAQUELIN DESAITODOB: [id number] [place], [place] [address]Ipk: (HP) Primary Insurance:[employer] OUTPATIENTPolicy Number: [id number] Date:Plan Name:X2 JAQUELIN DESAITODOB: [id number] [place] [address] [facility] 10/20/2024 JAQUELIN DESAITODOB: [id number] [place], [place] [address]Qtu: (HP) Primary Insurance:[facility] MEDICAID OUTPATIENTPolicy Number: [id number] Date:Plan Name:X2 JAQUELIN DESAITODOB: [id number] [place] [address] [facility] 10/07/2024 JAQUELIN DESAITODOB: [id number] [place], [place] [address]Zyy: (HP) Primary Insurance:[facility] MEDICAID OUTPATIENTPolicy Number: [id number] Date:Plan Name:X2 JAQUELIN DESAITODOB: [id number] [place] [address] [facility] 09/25/2024 Primary Insurance:[facility] MEDICAIDPolicy Number: [id number] Date:4375-19-80Pere Name:Renato DESAITODOB: [id number] [place] [address] [facility] 09/25/2024 Primary Insurance:[facility] MEDICAIDPolicy Number: [id number] Date:4519-53-97Pdbp Name:X JAQUELIN DESAITODOB: [id number] [place] [address] [facility] 08/26/2024 JAQUELIN LLOYDTODOB: [id number] [place], [place] [address]Vtn: () Primary Insurance:[facility] MEDICAID OUTPATIENTPolicy Number: [id number] Date:Plan Name:X2 JAQUELIN DESAITODOB: [id number] [place] [address] [facility] 08/21/2024 Primary Insurance:[facility] MEDICAIDPolicy Number: [id number] Date:3585-71-67Morv Name:Renato DESAITODOB: [id number] [place] [address] [facility] 08/15/2024 JAQUELINDAVID DESAITODOB: [id number] [place], [place] [address]Wgv: () Primary Insurance:[facility] OUTPATIENTPolicy Number: [id number] Date:Plan Name:Gianluca Cardenas FAMILIA: [id number] [place] [address] [facility] 08/07/2024 Primary Insurance:[facility] MEDICAIDPolicy Number: [id number] Date:3911-02-56Babg Name:Renato SCOTT FAMILIA: [id number] [facility] [place] [address] [facility]
[2025-07-20 13:06] VITALS: BP 138/85; PULSE 100; RESP 16; TEMP 36.7; O2SAT 100; BMI 32.3
--- NOTE | 2025-07-20 13:29 | EDS_ITS ---
HPI History of Present Illness Chief Complaint: General Illness Detail of Chief Complaint: Weakness and myalgias Narrative Narrative: Patient presents to the emergency department with complaint of generalized weakness and myalgias. Patient states that she believes she is having an Johnston flareup. She had recent evaluation by her mounted police officer at [facility] and had low cortisol levels so they increased her Decadron to 0.75 mg daily. Patient states that she started getting sick a week ago with cold-like symptoms. 3 days ago started with vomiting and diarrhea. She was seen at [facility] yesterday where she had fluids given as well as steroids IV and potassium IV. She is not feeling any better. Patient denies fevers. Patient also complains of some facial swelling which is typical when she has her Davonte's flares. [facility] Medical History (Updated 07/20/25 @ 14:[address] Herberth Spear, DO) Depression Kidney stones GI bleed Irregular heart beat Migraines Acute adrenal insufficiency Addisonian crisis Addisons disease Gastroparesis Dysphagia Wears glasses History of steroid therapy Diabetes Low iron Easy bruising Restless legs Seizures Difficulty swallowing History of ulceration History of IBS History of diverticulitis Gastric reflux Former smoker Asthma Shortness of breath on exertion Cardiology follow-up encounter History of echocardiogram History of stress test Chest pain History of left heart catheterization Anxiety and depression Graves disease Abnormal uterine bleeding (AUB) Endometriosis determined by laparoscopy Adenomyosis Chronic female pelvic pain Migraine Mild intermittent asthma Home Medications ?Medication ?Instructions ?Recorded ?Last Taken ?Type albuterol sulfate 90 mcg/actuation 2 inh inhalation Q4 H PRN sob 08/09/22 Unknown History aerosol inhaler (Ventolin HFA) pantoprazole 40 mg tablet,delayed 40 mg PO DAILY see p cp 02/23/23 07/20/25 History release atorvastatin 10 mg tablet 10 mg PO DAILY hyperlipidemi a 07/24/23 07/19/25 History clomipramine 50 mg capsule 100 mg PO BID see pcp 07/2407/19/25 History levothyroxine 125 mcg tablet 125 mcg PO DAILY see pcp 07/24/23 07/20/25 History alprazolam 0.5 mg tablet 0.5 mg PO Q8H PRN anxiety 07/19/25 History empagliflozin 10 mg tablet 10 mg PO DAILY see pcp 01/2207/19/25 History (Jardiance) lamotrigine 100 mg tablet 100 mg PO DAILY see pcp 01/2207/19/25 History lurasidone 60 mg tablet 60 mg PO QPM see pcp 5 07/19/25 History topiramate 25 mg tablet 25 mg PO QHS migraine 07/19/25 History dexamethasone 0.75 mg tablet 0.75 mg PO Q24H 06/16/25 07/20/25 History ondansetron 4 mg disintegrating 4 mg PO TID PRN nausea /vomiting 07/20/25 07/20/25 History tablet potassium chloride 10 mEq 10 meq PO BID 07/20/25 Unkno wn History tablet,extended release Allergy/AdvReac Type Severity Reaction Status Date / Time acetaminophen (From Excedrin Allergy Anaphylaxis Verified 07/20/25 13:07 Migraine) aspirin (From Excedrin Allergy Anaphylaxis Verified 07/20/25 13:07 Migraine) azithromycin (From Zithromax Allergy Anaphylaxis Verified 07/20/25 13:07 Z-Ruiz) bacitracin (From Neosporin Allergy Swelling Verified 07/20/25 13:07 ([id number])) bacitracin zinc (From Allergy Swelling Verified 07/20/25 13:07 Neosporin ([id number])) caffeine (From Excedrin Allergy Anaphylaxis Verified 07/20/25 13:07 Migraine) latex Allergy Rash Verified 07/20/25 13:07 neomycin sulfate (From Allergy Swelling Verified 07/20/25 13:07 Neosporin ([id number])) polymyxin B (From Neosporin Allergy Swelling Verified 07/20/25 13:07 (ljv-yai-jazis)) Family History Uncle Diabetes Cancer lung Father Diabetes Grandfather CVA (cerebral vascular accident) Cancer lung, unsure additional type Uncle Cancer brain Grandmother Cancer lung and unsure additional type Surgical History History of cholecystectomy History of appendectomy Hx laparoscopic cholecystectomy History of left salpingo-oophorectomy History of tubal ligation History of laparoscopic-assisted vaginal hysterectomy History of laparoscopy History of wisdom tooth extraction History of thyroidectomy History of section Social History (Updated 02/16/25 @ 16:54 by Vesta Lucero) household members: spouse housing: house Smoking Status: Former smoker ROS ROS ED Review of Systems ROS Unobtainable: other Constitutional Constitutional ED: Reports lethargy; Denies chills, fever(s), sweats or weight loss Eyes Eyes: Denies blurry vision, change in vision or diplopia ENT ENT ED: Denies rhinorrhea or sore throat Cardiovascular Cardiovascular: Denies chest pain, orthopnea or racing heartbeat Respiratory/Chest Respiratory/Chest: Reports dyspnea on exertion; Denies cough, dyspnea, orthopnea or sputum Gastrointestinal Gastrointestinal: Reports diarrhea, nausea and vomiting; Denies abdominal pain Genitourinary Genitourinary ED: Denies dysuria, hematuria or urinary frequency Musculoskeletal Musculoskeletal: Reports myalgias; Denies arthralgias, back pain or neck pain Integumentary Denies abscess, Abrasions or rash Neurologic Neurologic: Reports headache(s) and weakness Psychiatric Psychiatric: Denies anxiety, depression or suicidal thoughts Endocrine Endocrinology: Denies polydipsia, polyphagia or polyuria Hematologic/Lymphatic Hematologic/Lymphatic: Denies easy bleeding, easy bruising or lymphadenopathy Allergic/Immunologic Allergic/Immunologic ED: Denies mouth swelling, tongue swelling or urticaria EXAM Physical Exam Const Vital Signs: 07/20/25 13:06 07/20/25 13:25 Temperature 98.0 F Temperature Source Oral Pulse Rate 100 Respiratory Rate 16 Respiratory Pattern Normal Blood Pressure 138/85 H Blood Pressure Mean 102 Pulse Ox 100 Oxygen Delivery Method Room Air Positive well nourished and well developed General Appearance ED: well developed and NAD HEENT Reports TM's clear and moist mucous membranes normocephalic and atraumatic; Negative for trauma or tenderness Tympanic Membrane ED: Yes TM's clear Eyes PERRL and EOMs intact bilaterally General Eye ED: Negative for pale conjunctiva or scleral icterus Neck no lymphadenopathy, supple and no JVD General: Negative for tenderness Chest Wall inspection of chest normal and palpation of chest normal Chest: Negative for tenderness Resp normal respiratory effort and clear to auscultation bilaterally Effort and Inspection: Negative for respiratory distress or pain with movement Auscultation: Negative for rhonchi, wheezes or diminished lung sounds Cardio regular rate, regular rhythm, S1 normal heart sound, S2 normal heart sound and no murmurs Peripheral Pulses: pulses 2+ throughout GI normal to inspection, nondistended, normoactive bowel sounds, soft to palpation, non-tender, non-distended and no masses Back/Spine no CVA tenderness and no thoracic nor lumbar tenderness Extremity normal to inspection General Extremety ED: Negative for edema General Extremity: Negative for edema Neuro oriented x3, CN's II-XII intact bilaterally, no sensory deficits noted and gait normal Sensorium / Orientation: awake, alert, oriented to person, oriented to place and oriented to time Motor Exam: strength 5/5 throughout and strength abnormal Psych mental status grossly normal Skin no rashes or lesions noted and no wounds MDM MDM MDM Narrative Medical decision making narrative: Patient presents with concern for Johnston's crisis. History of same in the past. Seen at emergency department in [place] yesterday and continues to complain of not feeling well. Recent URI symptoms and also recent vomiting and diarrhea. IV line established. She was given normal saline fluid bolus. CBC with differential obtained showed an elevated white count of 14.7 which may be related to recent increase in her steroids. Hemoglobin was 12 and platelet count 445. Chemistries unremarkable. AST and ALT elevated with an AST of 288 and ALT of 502. Alk phos was 177. Serum hCG was negative. Cortisol was 0.12. Patient case discussed with hospitalist. Results discussed with patient and she tells me she recently had diagnosis of GROSS. Suspect she may have adrenal insufficiency as well as recent viral infection potentially. Her abdominal exam does reveal some tenderness over the right upper quadrant but the abdomen is soft and appears benign. Lab Data Attestation: I reviewed the patient's lab results. Labs: Laboratory Results - last 24 hr 07/20/25 13:33 WBC 14.7 H RBC 4.89 Hgb 12.0 Hct 37.3 MCV 76.3 L MCH 24.5 L MCHC 32.2 RDW Std Deviation 45.6 H RDW Coeff of Renetta 16.8 H Plt Count 445 MPV 9.1 Immature Gran % (Auto) 2.000 H Neut % (Auto) 67.9 Lymph % (Auto) 22.7 [place] % (Auto) 7.2 Eos % (Auto) 0.0 Baso % (Auto) 0.2 Absolute Neuts (auto) 10.0 H Absolute Lymphs (auto) 3.34 Nucleated RBC % 0 Sodium 137 Potassium 3.5 Chloride 99 Carbon Dioxide 22.5 Anion Gap 16 H BUN 8 Creatinine 0.79 Estim Creat Clear Calc 112.03 Est GFR (MDRD) Non-Af 102 BUN/Creatinine Ratio 10.0 Glucose 103 H Calcium 9.5 Total Bilirubin 0.55 AST 288 H ALT 502 H Alkaline Phosphatase 177 H Total Protein 7.4 Albumin 4.1 Globulin 3.3 Albumin/Globulin Ratio 1.2 Serum , Qual NEGATIVE Cortisol AM Sample 0.12 L Discharge Plan Dx/Rx/DC Orders Clinical Impression: Acute adrenal insufficiency, Weakness, Myalgia, Elevated liver enzymes Disposition Disposition: Acute Care Hospital [facility]
[2025-07-20 13:44] LABS: Hematocrit 37.3 % (37-47); Hemoglobin 12.0 g/dL (12.0-15.0); Immature Granulocytes Count 0.290 X10^3/uL (0.0-0.0); Mean Corp Hgb Conc 32.2 g/dL (32-36); Mean Corpuscular Volume 76.3 fL (81-99); Mean Platelet Vol. 9.1 fl (6.2-12.0); NRBC Flagged by Analyzer 0 % (0-5); Platelet Count 445 K/mm3 (150-450); RBC Distribution Width CV 16.8 % (11.6-14.6); RBC Distribution Width SD 45.6 fl (35.1-43.9); Red Blood Count 4.89 M/mm3 (4.2-5.4); White Blood Count 14.7 K/mm3 (4.4-11.0)
[2025-07-20] MEDS: 0.9% Normal Saline (1000mL) 1,000 ML 1000 ML IV (13:55)
[2025-07-20 14:32] LABS: Internal QC Validated? YES +Cl - CLEAR BKGD; Pregnancy, Serum, hCG Quali. NEGATIVE Negative; Record Kit Lot#, Serum Preg. 0000964736
[2025-07-20 14:33] LABS: AST(SGOT) 288 U/L (<=31); Alanine Aminotransfer ALT/SGPT 502 U/L (<=34); Albumin, Serum 4.1 g/dL (3.5-5.0); Alkaline Phosphatase 177 U/L (35-104); Anion Gap 16 (5-15); BUN 8 mg/dL (4-19); BUN/Creat Ratio 10.0 RATIO (10-20); CORTISOL AM 0.12 ug/dL (6.02-18.40); Calcium,Total 9.5 mg/dL (7.6-11.0); Carbon Dioxide 22.5 mmol/L (21.0-32.0); Chloride 99 mmol/L (98-108); Estimated Creatinine Clearance 112.03 ml/min (50-250); Globulin 3.3 g/dL (2.2-4.2); Glucose 103 mg/dL (70-99); Potassium 3.5 mmol/L (3.3-5.1)
[2025-07-20 14:50] LABS: Mucous, Urine 0 SEEN /hpf (<or=2+)
[2025-07-20 14:51] LABS: Color, Urine Yellow (Yellow); Glucose, Dipstick 1000 mg/dl (Normal); Ketone-Dipstick Negative (Negative); Leukocyte Esterase-Dipstick Negative /ul (Negative); Nitrite-Dipstick Negative (Negative); Occult Blood-Urine 10 /ul (Negative); Protein-Dipstick Negative (Negative); Specific Gravity, Urine 1.010 (1.002-1.030); Urine Bilirubin Dipstick Negative (Negative)
--- NOTE | 2025-07-20 15:04 | PCM.HP.STD ---
HPI - General General Date of Admission: 07/20/25 Date of Service: 07/20/25 Chief Complaint: Weakness, fatigue, aches, nausea and diarrhea HPI Narrative SONIA SZYMANSKI, is a 30-year-old female history of [place]'s disease, GERD, hypothyroidism, depression and anxiety who presented to [facility] ED 07/20/2025 with generalized weakness and myalgias and she was concerned she may be having an [place]'s flare. Recently evaluated by her wastewater design engineer at [facility] and had low cortisol level so they increased her Decadron to 0.75 mg daily, for the past week she started getting sick with cold-like symptoms and 3 days ago she started with vomiting and diarrhea. She was seen at [facility] yesterday and was given fluids as well as IV steroids and potassium but she is not feeling any better. Also complaining of some facial swelling which is typical for her [place]'s flare. In the ED temp 98, heart rate 100 and blood pressure 138/85, respiratory rate 16 pulse ox 100% on room air. CBC with a white count of 14 and hemoglobin of 12, CMP with a BUN of 8 and creatinine 0.79, elevated liver function tests with AST of 288, ALT 502, alk phos 177, cortisol 0.12, serum negative, UA ordered but not yet obtained. Given patient's symptoms and low cortisol consistent with Dav[place]'s flare hospitalist contacted for admission. Patient evaluated at bedside, she reports 1 week ago she had URI-like symptoms with some cough, congestion, shortness of breath with some intermittent chest pain, nausea and congestion which has significantly improved however on Monday she felt herself started to have symptoms consistent with adrenal crisis. She was feeling weak, achy, tired and she started having significant nausea as well as diarrhea. She had a syncopal episode yesterday when she went from laying on the couch to sitting up that was brief and she went to [place] and was given fluids and potassium and discharged home however she reports she continues to feel worse so she presented to [facility] ED. Reports her only URI symptom is a little bit congestion still however the rest of her symptoms have resolved, does have headache, diarrhea and nausea but is the same as previous flares, weakness, achiness, fatigue and right upper quadrant abdominal pain. Discussed her elevated liver enzymes and she reports that in the [id number] past she had a CT of her abdomen for this right upper quadrant pain and that was when she was told she has GROSS and no other acute abnormalities were found. Her current pain is the same pain she gets every time she has a flare. Patient notes some increased urinary frequency without any burning on urination. No fevers, no changes in vision. No rashes, bleeding, bruising. Also notes some swelling in her face which she reports is also consistent with her symptoms when she has acute adrenal insufficiency. [facility] Medical History (Updated 07/20/25 @ 14:[address] Herberth Spear, DO) Abnormal uterine bleeding (AUB) Acute adrenal insufficiency Addisonian crisis Addisons disease Adenomyosis Anxiety and depression Asthma Cardiology follow-up encounter Chest pain Chronic female pelvic pain Depression Diabetes Difficulty swallowing Dysphagia Easy bruising Endometriosis determined by laparoscopy Former smoker Gastric reflux Gastroparesis GI bleed Graves disease History of diverticulitis History of echocardiogram History of IBS History of left heart catheterization History of steroid therapy History of stress test History of ulceration Irregular heart beat Kidney stones Low iron Migraine Migraines Mild intermittent asthma Restless legs Seizures Shortness of breath on exertion Wears glasses Home Medications ?Medication ?Instructions ?Recorded ?Last Taken ?Type albuterol sulfate 90 mcg/actuation 2 inh inhalation Q4H PRN sob 08/09/22 Unknown History aerosol inhaler (Ventolin HFA) pantoprazole 40 mg tablet,delayed 40 mg PO DAILY see pcp 02/23/23 07/20/25 History release atorvastatin 10 mg tablet 10 mg PO DAILY hyperlipidemia 07/24/23 07/19/25 History clomipramine 50 mg capsule 100 mg PO BID see pcp 07/24/23 07/19/25 History levothyroxine 125 mcg tablet 125 mcg PO DAILY see pcp 07/24/23 07/20/25 History alprazolam 0.5 mg tablet 0.5 mg PO Q8H PRN anxiety 02/16/25 07/19/25 History empagliflozin 10 mg tablet 10 mg PO DAILY see pcp 02/16/25 07/19/25 History (Jardiance) lamotrigine 100 mg tablet 100 mg PO DAILY see pcp 02/16/25 07/19/25 History lurasidone 60 mg tablet 60 mg PO QPM see pcp 02/16/25 07/19/25 History topiramate 25 mg tablet 25 mg PO QHS migraine 02/16/25 07/19/25 History dexamethasone 0.75 mg tablet 0.75 mg PO Q24H 06/16/25 07/20/25 History ondansetron 4 mg disintegrating 4 mg PO TID PRN nausea/vomiting 07/20/25 07/20/25 History tablet potassium chloride 10 mEq 10 meq PO BID 07/20/25 Unknown History tablet,extended release Allergy/AdvReac Type Severity Reaction Status Date / Time acetaminophen (From Excedrin Allergy Anaphylaxis Verified 07/20/25 13:07 Migraine) aspirin (From Excedrin Allergy Anaphylaxis Verified 07/20/25 13:07 Migraine) azithromycin (From Zithromax Allergy Anaphylaxis Verified 07/20/25 13:07 Z-Ruiz) bacitracin (From Neosporin Allergy Swelling Verified 07/20/25 13:07 ([id number])) bacitracin zinc (From Allergy Swelling Verified 07/20/25 13:07 Neosporin ([id number])) caffeine (From Excedrin Allergy Anaphylaxis Verified 07/20/25 13:07 Migraine) latex Allergy Rash Verified 07/20/25 13:07 neomycin sulfate (From Allergy Swelling Verified 07/20/25 13:07 Neosporin ([id number])) polymyxin B (From Neosporin Allergy Swelling Verified 07/20/25 13:07 ([id number])) Family History Uncle Diabetes Cancer lung Father Diabetes Grandfather CVA (cerebral vascular accident) Cancer lung, unsure additional type Uncle Cancer brain Grandmother Cancer lung and unsure additional type Surgical History History of appendectomy History of section History of cholecystectomy History of laparoscopic-assisted vaginal hysterectomy History of laparoscopy History of left salpingo-oophorectomy History of thyroidectomy History of tubal ligation History of wisdom tooth extraction Hx laparoscopic cholecystectomy Social History (Updated 02/16/25 @ 16:54 by Vesta Lucero) household members: spouse housing: house Smoking Status: Former smoker ROS ROS Narrative General: Denies fever/chills HENT: Some headache, still has some congestion, denies sore throat EYES: Denies changes in vision Resp: Denies cough, denies shortness of breath Cardiac: Denies chest pain GI: Right upper quadrant abdominal pain consistent with her previous pain, significant nausea with poor p.o., frequent diarrhea : Urinary frequency Extremity: Denies swelling in extremities, feels she has some swelling in her face similar to previous MSK: Denies weakness Neuro: Denies any numbness/tingling Heme: Denies any bleeding or bruising Skin: Denies rashes Psychiatric: Patient tearful, concerned she is going to lose her job Vital Signs Vital Signs Vital Signs: 07/20/25 13:06 07/20/25 13:25 Temperature 98.0 F Temperature Source Oral Pulse Rate 100 Respiratory Rate 16 Respiratory Pattern Normal Blood Pressure 138/85 H Blood Pressure Mean 102 Pulse Ox 100 Oxygen Delivery Method Room Air Weight Weight: 88.042 kg Body Mass Index (BMI) 32.3 Physical Exam Narrative General: Alert, oriented, patient tearful HEENT: Atraumatic, normocephalic Eyes: Anicteric, normal conjunctiva, extraocular movements grossly intact Neck: Supple Respiratory: Clear to auscultation bilaterally, normal respiratory effort Cardiovascular: Regular rate and rhythm GI: Tender to palpation right upper quadrant without rebound, guarding, rigidity Extremities: No significant pitting edema Musculoskeletal: Moving all extremities Neuro: No overt focal neurological deficits Skin: No rashes appreciated Psych: Cooperative but is tearful and anxious Results Lab / Micro Data 07/20/25 13:33 07/20/25 13:33 Labs: Laboratory Results - last 24 hr 07/20/25 13:33: WBC 14.7 H, RBC 4.89, Hgb 12.0, Hct 37.3, MCV 76.3 L, MCH 24.5 L, MCHC 32.2, RDW Std Deviation 45.6 H, RDW Coeff of Renetta 16.8 H, Plt Count 445, MPV 9.1, Immature Gran % (Auto) 2.000 H, Neut % (Auto) 67.9, Lymph % (Auto) 22.7, Real % (Auto) 7.2, Eos % (Auto) 0.0, Baso % (Auto) 0.2, Absolute Neuts (auto) 10.0 H, Absolute Lymphs (auto) 3.34, Nucleated RBC % 0, Sodium 137, Potassium 3.5, Chloride 99, Carbon Dioxide 22.5, Anion Gap 16 H, BUN 8, Creatinine 0.79, Estim Creat Clear Calc 112.03, Est GFR (MDRD) Non-Af 102, BUN/Creatinine Ratio 10.0, Glucose 103 H, Calcium 9.5, Total Bilirubin 0.55, AST 288 H, ALT 502 H, Alkaline Phosphatase 177 H, Total Protein 7.4, Albumin 4.1, Globulin 3.3, Albumin/Globulin Ratio 1.2, Serum , Qual NEGATIVE, Cortisol AM Sample 0.12 L 07/20/25 14:45: Urine Color Yellow, Urine Clarity Clear, Urine pH 7.0, Ur Specific [place] 1.010, Urine Protein Negative, Urine Glucose (UA) 1000 H, Urine Ketones Negative, Urine Occult Blood 10 H, Urine Nitrite Negative, Urine Bilirubin Negative, Urine Urobilinogen Normal, Ur Leukocyte Esterase Negative Assessment & Plan Assessment/Plan (1) Acute adrenal insufficiency: (2) Elevated liver enzymes: PLAN: Plan # Adrenal insufficiency in the setting of known Davonte's disease - Patient has symptoms consistent with all of her previous episodes of acute adrenal insufficiency -Will give hydrocortisone 50 every 6 for stress dose steroids -IV fluids - Seems this may have been precipitated by URI, awaiting COVID/flu/RSV which was obtained in the ED, will add respiratory panel -Awaiting UA # Elevated liver function tests - AST 288, ALT 502, alk phos 177 -Does report right upper quadrant pain but notes it is the exact same pain she gets with every adrenal crisis with no differences -Reports a CT scan in the [id number] past though she is unsure when that was obtained due to the symptoms and she was told that she has GROSS -Avoid hepatotoxic agents -Repeat CMP in the a.m. -Given symptoms are consistent with all of her previous flares do not certainly think she needs acute reimaging however if pain changes or LFTs worsen will likely need further evaluation - Will hold statin # Nausea and diarrhea -IV fluids, antiemetics, supportive care -Diet as tolerated -Will obtain stool studies, suspect this is due to to #1 however cannot rule out other underlying etiology and feel it is reasonable to obtain the studies #Hypothyroidism -Continue Synthroid #Depression/anxiety -Continue home medications #GERD - Will give PPI IV due to patient's significant nausea and difficulty tolerating p.o. #DVT ppx: SCDs Mary Wang MD Charges/Coding Visit Charges Inpatient E&M: 97822 Init Hosp L2
[2025-07-20 15:06] VITALS: BP 135/93; PULSE 96; RESP 26; O2SAT 100
[2025-07-20 15:12] LABS: Red Blood Cells-Urine 0-5 SEEN /hpf (0-5); Squamous Epithelial Cells - UA 0-5 SEEN /hpf (5-10)
[2025-07-20 15:23] VITALS: BP 135/93; PULSE 81; RESP 16; TEMP 36.6; O2SAT 100
[2025-07-20 15:41] VITALS: BP 112/85; PULSE 71; RESP 17; TEMP 36.8; O2SAT 100; BMI 32.3
[2025-07-20] MEDS: 0.9% Normal Saline (1000mL) 1,000 ML 100 ML IV (16:07)
[2025-07-20 21:32] VITALS: BP 131/82; PULSE 76; RESP 16; TEMP 36.6; O2SAT 95
[2025-07-20] MEDS: MELATONIN 10 MG TABLET PO (21:34)
[2025-07-21] MEDS: 0.9% Saline Lock 10 ML Syringe IV ×2 (01:53→18:33)
[2025-07-21] MEDS: 0.9% Normal Saline (1000mL) 1,000 ML 100 ML IV ×2 (01:53→12:06)
[2025-07-21 03:30] VITALS: BP 113/66; PULSE 68; RESP 16; TEMP 36.4; O2SAT 95
[2025-07-21 05:34] LABS: Hematocrit 35.5 % (37-47); Hemoglobin 10.8 g/dL (12.0-15.0); Immature Granulocytes Count 0.090 X10^3/uL (0.0-0.0); Mean Corp Hgb Conc 30.4 g/dL (32-36); Mean Corpuscular Volume 79.2 fL (81-99); Mean Platelet Vol. 9.3 fl (6.2-12.0); NRBC Flagged by Analyzer 0 % (0-5); Platelet Count 465 K/mm3 (150-450); RBC Distribution Width CV 17.0 % (11.6-14.6); RBC Distribution Width SD 48.5 fl (35.1-43.9); Red Blood Count 4.48 M/mm3 (4.2-5.4); White Blood Count 12.9 K/mm3 (4.4-11.0)
[2025-07-21 06:06] LABS: AST(SGOT) 328 U/L (<=31); Alanine Aminotransfer ALT/SGPT 550 U/L (<=34); Albumin, Serum 3.7 g/dL (3.5-5.0); Alkaline Phosphatase 180 U/L (35-104); Anion Gap 12 (5-15); BUN 7 mg/dL (4-19); BUN/Creat Ratio 11.4 RATIO (10-20); Calcium,Total 8.6 mg/dL (7.6-11.0); Carbon Dioxide 23.5 mmol/L (21.0-32.0); Chloride 105 mmol/L (98-108); Estimated Creatinine Clearance 149.97 ml/min (50-250); Globulin 3.0 g/dL (2.2-4.2); Glucose 113 mg/dL (70-99); Potassium 3.9 mmol/L (3.3-5.1)
--- NOTE | 2025-07-21 09:07 | PCM.PN.HOSP ---
Subjective Subjective Still does not feel back to her baseline and does not feel much improved from admission Objective Data Objective Data Vital Signs: Vital Signs Temp Pulse Resp BP Pulse Ox O2 Del Method 97.6 F L 68 16 113/66 95 Room Air 07/21/25 03:30 07/21/25 03:30 07/21/25 03:30 07/21/25 03:30 07/21/25 03:30 07/21/25 03:30 Oxygen Delivery Method Room Air Weight: 194 lb 0.108 oz Body Mass Index (BMI) 32.3 Intake & Output: Intake and Output for Last 24 Hours 07/20/25 07/21/25 07/22/25 03:59 03:59 03:59 Intake Total 2656.67 / 2656.67 60 / 60 Balance 2656.67 / 2656.67 Lab / Micro Data 07/21/25 05:10 07/21/25 05:10 Labs: Laboratory Results - last 24 hr 07/20/25 13:33: WBC 14.7 H, RBC 4.89, Hgb 12.0, Hct 37.3, MCV 76.3 L, MCH 24.5 L, MCHC 32.2, RDW Std Deviation 45.6 H, RDW Coeff of Renetta 16.8 H, Plt Count 445, MPV 9.1, Immature Gran % (Auto) 2.000 H, Neut % (Auto) 67.9, Lymph % (Auto) 22.7, [place] % (Auto) 7.2, Eos % (Auto) 0.0, Baso % (Auto) 0.2, Absolute Neuts (auto) 10.0 H, Absolute Lymphs (auto) 3.34, Nucleated RBC % 0, Sodium 137, Potassium 3.5, Chloride 99, Carbon Dioxide 22.5, Anion Gap 16 H, BUN 8, Creatinine 0.79, Estim Creat Clear Calc 112.03, Est GFR (MDRD) Non-Af 102, BUN/Creatinine Ratio 10.0, Glucose 103 H, Calcium 9.5, Total Bilirubin 0.55, AST 288 H, ALT 502 H, Alkaline Phosphatase 177 H, Total Protein 7.4, Albumin 4.1, Globulin 3.3, Albumin/Globulin Ratio 1.2, Serum , Qual NEGATIVE, Cortisol AM Sample 0.12 L 07/20/25 14:45: Urine Color Yellow, Urine Clarity Clear, Urine pH 7.0, Ur Specific [place] 1.010, Urine Protein Negative, Urine Glucose (UA) 1000 H, Urine Ketones Negative, Urine Occult Blood 10 H, Urine Nitrite Negative, Urine Bilirubin Negative, Urine Urobilinogen Normal, Ur Leukocyte Esterase Negative, Urine RBC 0-5 SEEN, Urine WBC 0-5 SEEN, Ur Squamous Epith Cells 0-5 SEEN, Urine Bacteria 1+, Urine Mucus 0 SEEN 07/20/25 21:42: POC Glucose 147 H 07/21/25 05:10: WBC 12.9 H, RBC 4.48, Hgb 10.8 L, Hct 35.5 L, MCV 79.2 L, MCH 24.1 L, MCHC 30.4 L D, RDW Std Deviation 48.5 H, RDW Coeff of Renetta 17.0 H, Plt Count 465 H, MPV 9.3, Immature Gran % (Auto) 0.700, Neut % (Auto) 77.0 H, Lymph % (Auto) 15.5 L, [place] % (Auto) 6.7, Eos % (Auto) 0.0, Baso % (Auto) 0.1, Absolute Neuts (auto) 9.9 H, Absolute Lymphs (auto) 1.99, Nucleated RBC % 0, Sodium 141, Potassium 3.9, Chloride 105, Carbon Dioxide 23.5, Anion Gap 12, BUN 7, Creatinine 0.59 L, Estim Creat Clear Calc 149.97, Est GFR (MDRD) Non-Af 123, BUN/Creatinine Ratio 11.4, Glucose 113 H, Calcium 8.6, Total Bilirubin 0.49, AST 328 H, ALT 550 H, Alkaline Phosphatase 180 H, Total Protein 6.7, Albumin 3.7, Globulin 3.0, Albumin/Globulin Ratio 1.3 Micro: Microbiology 07/20/25 16:31 Mucosa - Nasopharyngeal Respiratory Panel (PCR) - Final 07/20/25 14:30 Mucosa - Nose SARS-CoV-2, Influenza & RSV (PCR) - Final Physical Exam Narrative General: Alert, Oriented x3, Cooperative, No apparent distress HEENT: Atraumatic, PERRLA, EOMI, Normocephalic Oral: Moist Mucosa Neck: Supple, No JVD Lungs: Diminished, Normal air movement, No rhonchi, No wheeze, No rales Cardiovascular: Regular rate, Regular Rhythm, Normal S1, Normal S2, No murmurs Abdomen: Soft, TTP RUQ, Non-Distended, No Hepato-splenomegaly Extremities: No edema, Capillary Refill Less than 3 Seconds Skin: No rashes, No breakdown Musculoskeletal: No Tenderness to Palpation of Joints or Extremities Neurological: No focal neurological deficits, Motor Exam 5/5 strength throughout, Sensory exam intact to light touch and pain Psych/Mental Status: Normal Affect, Appropriate Assessment & Plan Assessment/Plan (1) Acute adrenal insufficiency: (2) Elevated liver enzymes: PLAN: Plan 1. 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 Elevated LFTs higher than her normal to be expected in the setting of her [place]'s and MASH ? Continue with stress dose steroids, if she does start to feel better can plan for discharge on her previous taper ? Continue with IV fluids ? I do recommend outpatient follow-up with gastroenterology for her elevated LFTs ? Respiratory panels are negative will continue supportive care for her nausea and diarrhea 2. Hypothyroidism ? Stable ? Continue with Synthroid 3. Anxiety/depression ? Stable ? Continue with her home medications 4. GERD ? Stable ? Continue with her home medications DVT: SCDs Charges/Coding Visit Charges Inpatient E&M: 42093 Subs Hosp L2
[2025-07-21 09:30] VITALS: BP 119/71; PULSE 88; RESP 18; TEMP 36.6; O2SAT 97
[2025-07-21] MEDS: Pantoprazole Sodium 40 MG in 0.9% Normal Saline (100mL MB+) 100 ML 300 MG IV (10:13)
--- NOTE | 2025-07-21 11:30 | NURSING ---
Patient's blood sugar per dexcom 116.
--- NOTE | 2025-07-21 13:31 | CASEMGMT ---
SKIP ZELAYA Assessment Face to Face with patient for initial transition planning/care coordination assessment. SKIP ZELAYA introduced self and role at [facility], pt voices understanding. Pt is A&Ox4 and is resting comfortably in bed and is calm. Care providers, pharmacy, and demographics verified. Admitting dx: Adrenal Crisis PCP: Xiomy Specialists: Shannen ([facility] Endo), Maximino (Neurology), Trina ([facility]), [facility] Preferred Pharmacy: [facility] Insurance: [employer] Prescription Benefit: Yes LNOK: Chidi Avendaño (H), Sofia Alfonso (Mother) Living Arrangements: Pt lives with her and 2 children (Ages 6 & 10) in a 2 story home with 2 steps to enter ADLs/IADLs: Pt states that she is independent. 6-Click score is 24 Transportation: Self, DME: Functioning CBGM with sensors. Pt states that she also has a backup BGM with sufficient supplies. Pt states that she has a shower chair, cane, FWW, Nebulizer, and BP Machine HHC/SNF: Reports HH history x 2 years ago through [facility]. Denies SNF hx or needs Pt?s goal: Home Plan: Home with family, anticipate no additional needs. Pt denies the need for any form of HH or OP therapy. Pt states that she feels safe returning home with her family once she is medically ready and denies further questions or concerns at this time. Report given to [facility] [employer] CM. Raj Story RN, CM
[2025-07-21 15:30] VITALS: BP 141/93; PULSE 73; RESP 18; TEMP 36.4; O2SAT 97
[2025-07-21] MEDS: LURASIDONE HCL 60 MG TABLET PO (16:48)
--- NOTE | 2025-07-21 16:54 | NURSING ---
Patient's blood sugar per dexcom 160.
[2025-07-21 21:10] VITALS: BP 118/80; PULSE 65; RESP 16; TEMP 36.5; O2SAT 97
[2025-07-21] MEDS: MELATONIN 10 MG TABLET PO (21:17)
[2025-07-22] MEDS: 0.9% Saline Lock 10 ML Syringe IV ×4 (00:52→11:17)
[2025-07-22 00:55] VITALS: BP 120/81; PULSE 60; RESP 14; TEMP 36.7; O2SAT 94
[2025-07-22 06:14] LABS: Hematocrit 35.4 % (37-47); Hemoglobin 10.7 g/dL (12.0-15.0); Immature Granulocytes Count 0.200 X10^3/uL (0.0-0.0); Mean Corp Hgb Conc 30.2 g/dL (32-36); Mean Corpuscular Volume 80.3 fL (81-99); Mean Platelet Vol. 9.5 fl (6.2-12.0); NRBC Flagged by Analyzer 0 % (0-5); Platelet Count 452 K/mm3 (150-450); RBC Distribution Width CV 17.0 % (11.6-14.6); RBC Distribution Width SD 48.9 fl (35.1-43.9); Red Blood Count 4.41 M/mm3 (4.2-5.4); White Blood Count 12.3 K/mm3 (4.4-11.0)
[2025-07-22 06:25] VITALS: BP 132/93; PULSE 72; RESP 16; TEMP 36.7; O2SAT 96
[2025-07-22 07:11] LABS: AST(SGOT) 81 U/L (<=31); Alanine Aminotransfer ALT/SGPT 346 U/L (<=34); Albumin, Serum 3.5 g/dL (3.5-5.0); Alkaline Phosphatase 148 U/L (35-104); Anion Gap 13 (5-15); BUN 7 mg/dL (4-19); BUN/Creat Ratio 9.1 RATIO (10-20); Calcium,Total 8.8 mg/dL (7.6-11.0); Carbon Dioxide 23.1 mmol/L (21.0-32.0); Chloride 103 mmol/L (98-108); Estimated Creatinine Clearance 122.90 ml/min (50-250); Globulin 3.0 g/dL (2.2-4.2); Glucose 109 mg/dL (70-99); Potassium 4.0 mmol/L (3.3-5.1)
--- NOTE | 2025-07-22 08:35 | DCINST_ITS ---
Discharge Instructions DC O2, CPAP, BIPAP needs Home O2 Discharge instructions: No Dressing / Incision Discharge Activity: Return to Normal Activity Dressing / Incision Call your doctor if you observe: Fever of 101 or Higher, Shortness of breath, Dizziness, Fainting spells, Swelling in the ankles, Chest pain and Increased palpitations (irregular heartbeat) Follow Up Care Test Results: Test results from this visit will be discussed in further detail at your follow- up appointment, if applicable. Discharge Plan Admission Admit Date/Time: 07/20/25 15:05 Attending Provider: Mode Christianson Primary Care Provider: Kevin Stauffer Consulting Providers: Mary Wang Discharge Orders/Prescriptions Prescriptions: New dexamethasone 1.5 mg tablet 1.5 mg PO DAILY Qty: 18 0RF Rx Instructions: Take 3 tablets daily for 3 days then 2 tablets daily for 3 days then 1 tablet daily for 3 days then resume your home dosing oxycodone 5 mg tablet 5 mg PO Q8H PRN (Reason: pain) 3 Days Qty: 10 0RF Continued albuterol sulfate [Ventolin HFA] 90 mcg/actuation HFA aerosol inhaler 2 inh INHALATION Q4H PRN (Reason: sob) Patient Comments: Inhale 2 Puffs as instructed every 4 hours as needed. pantoprazole 40 mg tablet,delayed release (DR/EC) 40 mg PO DAILY atorvastatin 10 mg tablet 10 mg PO DAILY Patient Comments: TAKE 1 TABLET BY MOUTH ONCE DAILY levothyroxine 125 mcg tablet 125 mcg PO DAILY Patient Comments: Take 1 tablet by mouth once daily. M=S AND 1.5 ON MONDAY clomipramine 50 mg capsule 100 mg PO BID alprazolam 0.5 mg tablet 0.5 mg PO Q8H PRN (Reason: anxiety) topiramate 25 mg tablet 25 mg PO QHS lurasidone 60 mg tablet 60 mg PO QPM lamotrigine 100 mg tablet 100 mg PO DAILY Jardiance 10 mg tablet 10 mg PO DAILY ondansetron 4 mg tablet,disintegrating 4 mg PO TID PRN (Reason: nausea/vomiting) potassium chloride 10 mEq tablet extended release 10 meq PO BID dexamethasone 0.75 mg tablet 0.75 mg PO Q24H Referrals / Follow Up: Kevin Stauffer MD [Primary Care Provider, Medical] - Within 1 Week Disposition Disposition (needs filled in before D/C Order can be placed): Home, Self Care
[2025-07-22] MEDS: 0.9% Normal Saline (250mL Bag) 250 ML 15 ML IV (09:15)
[2025-07-22] MEDS: Pantoprazole Sodium 40 MG in 0.9% Normal Saline (100mL MB+) 100 ML 300 MG IV (09:16)
--- NOTE | 2025-07-22 09:40 | PHA.DC_ITS ---
Pharmacy [facility] Counseling Pharmacy Service has performed discharge medication reconciliation and counseling for this patient. The patient's discharge medication list was reviewed for discrepancies and discrepancies were resolved. The patient was counseled on the following discharge medications and changes in medications for homegoing were reviewed. The Reason for Use, instructions for use, and potential side effects were reviewed for all new medications. The patient's questions regarding all of their medications were answered. 1. Dexamethasone taper 2. Oxycodone 5 mg PO Q8H PRN pain The patient was able to verbally demonstrate an understanding of their discharge medications. Medications at Discharge Home Medications albuterol sulfate 90 mcg/actuation aerosol inhaler (Ventolin HFA) 2 inh inhalation Q4H PRN sob 08/09/22 pantoprazole 40 mg tablet,delayed release 40 mg PO DAILY see pcp 02/23/23 atorvastatin 10 mg tablet 10 mg PO DAILY hyperlipidemia 07/24/23 clomipramine 50 mg capsule 100 mg PO BID see pcp 07/24/23 levothyroxine 125 mcg tablet 125 mcg PO DAILY see pcp 07/24/23 alprazolam 0.5 mg tablet 0.5 mg PO Q8H PRN anxiety 02/16/25 empagliflozin 10 mg tablet (Jardiance) 10 mg PO DAILY see pcp 02/16/25 lamotrigine 100 mg tablet 100 mg PO DAILY see pcp 02/16/25 lurasidone 60 mg tablet 60 mg PO QPM see pcp 02/16/25 topiramate 25 mg tablet 25 mg PO QHS migraine 02/16/25 dexamethasone 0.75 mg tablet 0.75 mg PO Q24H 06/16/25 ondansetron 4 mg disintegrating tablet 4 mg PO TID PRN nausea/vomiting 07/20/25 potassium chloride 10 mEq tablet,extended release 10 meq PO BID 07/20/25 dexamethasone 1.5 mg tablet 1.5 mg PO DAILY #18 tabs 07/22/25 oxycodone 5 mg tablet 5 mg PO Q8H PRN pain 3 days #10 tabs 07/22/25
--- NOTE | 2025-07-22 09:53 | PCM.DC.SUM ---
Providers Date of Admission: 07/20/25 Primary Care Physician: Dr. Kevin Stauffer MD Reason For Visit: ADRENAL CRISIS Diagnosis Discharge Diagnosis (1) Acute adrenal insufficiency: Status: Acute Code(s): E27.40 - Unspecified adrenocortical insufficiency (2) Elevated liver enzymes: Status: Acute Code(s): R74.8 - Abnormal levels of other serum enzymes Medications at Discharge Home Medications albuterol sulfate 90 mcg/actuation aerosol inhaler (Ventolin HFA) 2 inh inhalation Q4H PRN sob 08/09/22 pantoprazole 40 mg tablet,delayed release 40 mg PO DAILY see pcp 02/23/23 atorvastatin 10 mg tablet 10 mg PO DAILY hyperlipidemia 07/24/23 clomipramine 50 mg capsule 100 mg PO BID see pcp 07/24/23 levothyroxine 125 mcg tablet 125 mcg PO DAILY see pcp 07/24/23 alprazolam 0.5 mg tablet 0.5 mg PO Q8H PRN anxiety 02/16/25 empagliflozin 10 mg tablet (Jardiance) 10 mg PO DAILY see pcp 02/16/25 lamotrigine 100 mg tablet 100 mg PO DAILY see pcp 02/16/25 lurasidone 60 mg tablet 60 mg PO QPM see pcp 02/16/25 topiramate 25 mg tablet 25 mg PO QHS migraine 02/16/25 dexamethasone 0.75 mg tablet 0.75 mg PO Q24H 06/16/25 ondansetron 4 mg disintegrating tablet 4 mg PO TID PRN nausea/vomiting 07/20/25 potassium chloride 10 mEq tablet,extended release 10 meq PO BID 07/20/25 dexamethasone 1.5 mg tablet 1.5 mg PO DAILY #18 tabs 07/22/25 oxycodone 5 mg tablet 5 mg PO Q8H PRN pain 3 days #10 tabs 07/22/25 Hospital Course Operations None Procedures None Summary of Care Provided Minutes Spent on Discharge: 33 Hospital Course: Per HPI: SONIA SZYMANSKI, is a 30-year-old 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 and had low cortisol level so they increased her Decadron to 0.75 mg daily, for the past week she started getting sick with cold-like symptoms and 3 days ago she started with vomiting and diarrhea. She was seen at [facility] yesterday and was given fluids as well as IV steroids and potassium but she is not feeling any better. Also complaining of some facial swelling which is typical for her Baxter's flare. In the ED temp 98, heart rate 100 and blood pressure 138/85, respiratory rate 16 pulse ox 100% on room air. CBC with a white count of 14 and hemoglobin of 12, CMP with a BUN of 8 and creatinine 0.79, elevated liver function tests with AST of 288, ALT 502, alk phos 177, cortisol 0.12, serum negative, UA ordered but not yet obtained. Given patient's symptoms and low cortisol consistent with Baxter's flare hospitalist contacted for admission. Patient evaluated at bedside, she reports 1 week ago she had URI-like symptoms with some cough, congestion, shortness of breath with some intermittent chest pain, nausea and congestion which has significantly improved however on Monday she felt herself started to have symptoms consistent with adrenal crisis. She was feeling weak, achy, tired and she started having significant nausea as well as diarrhea. She had a syncopal episode yesterday when she went from laying on the couch to sitting up that was brief and she went to [place] and was given fluids and potassium and discharged home however she reports she continues to feel worse so she presented to [facility] ED. Reports her only URI symptom is a little bit congestion still however the rest of her symptoms have resolved, does have headache, diarrhea and nausea but is the same as previous flares, weakness, achiness, fatigue and right upper quadrant abdominal pain. Discussed her elevated liver enzymes and she reports that in the [id number] past she had a CT of her abdomen for this right upper quadrant pain and that was when she was told she has GROSS and no other acute abnormalities were found. Her current pain is the same pain she gets every time she has a flare. Patient notes some increased urinary frequency without any burning on urination. No fevers, no changes in vision. No rashes, bleeding, bruising. Also notes some swelling in her face which she reports is also consistent with her symptoms when she has acute adrenal insufficiency. Hospital Course: 1. Adrenal insufficiency in the setting of Davonte's disease with MASH?30-year-old female presented to the hospital with another Baxter's crisis likely precipitated by a viral URI. Respiratory panels were negative though. LFTs were also elevated which is not inconsistent with her past though they were more elevated than usual. They have significantly improved on the day of discharge and I do recommend that she follow-up with gastroenterology as an outpatient. In the meantime she was placed on stress dose steroids of hydrocortisone 50 mg IV 4 times daily. She is feeling a little bit better despite having her abdominal pain. She would like to go home today with the steroid taper and the oxycodone that she had been given the last time she was here in the hospital. She expressed understanding of the risk and benefits of going home and would like to go home today. 2. Hypothyroidism, anxiety, depression, GERD are all chronic medical conditions which complicate her care. Her home medications were continued where appropriate Physical Exam Narrative General: Alert, Oriented x3, Cooperative, No apparent distress HEENT: Atraumatic, PERRLA, EOMI, Normocephalic Oral: Moist Mucosa Neck: Supple, No JVD Lungs: Diminished, Normal air movement, No rhonchi, No wheeze, No rales Cardiovascular: Regular rate, Regular Rhythm, Normal S1, Normal S2, No murmurs Abdomen: Soft, TTP RUQ, Non-Distended, No Hepato-splenomegaly Extremities: No edema, Capillary Refill Less than 3 Seconds Skin: No rashes, No breakdown Musculoskeletal: No Tenderness to Palpation of Joints or Extremities Neurological: No focal neurological deficits, Motor Exam 5/5 strength throughout, Sensory exam intact to light touch and pain Psych/Mental Status: Normal Affect, Appropriate Weight / BMI Weight Weight: 194 lb 0.108 oz Body Mass Index (BMI) 32.3 ABG / Lab / Microbiology Data 07/22/25 05:06 07/22/25 05:06 Laboratory: Laboratory Results - last 24 hr 07/22/25 05:06: WBC 12.3 H, RBC 4.41, Hgb 10.7 L, Hct 35.4 L, MCV 80.3 L, MCH 24.3 L, MCHC 30.2 L, RDW Std Deviation 48.9 H, RDW Coeff of Renetta 17.0 H, Plt Count 452 H, MPV 9.5, Immature Gran % (Auto) 1.600 H, Neut % (Auto) 68.9, Lymph % (Auto) 21.8, [place] % (Auto) 7.5, Eos % (Auto) 0.0, Baso % (Auto) 0.2, Absolute Neuts (auto) 8.5 H, Absolute Lymphs (auto) 2.69, Nucleated RBC % 0, Sodium 140, Potassium 4.0, Chloride 103, Carbon Dioxide 23.1, Anion Gap 13, BUN 7, Creatinine 0.72, Estim Creat Clear Calc 122.90, Est GFR (MDRD) Non-Af 115, BUN/Creatinine Ratio 9.1 L, Glucose 109 H, Calcium 8.8, Total Bilirubin 0.21, AST 81 H, ALT 346 H, Alkaline Phosphatase 148 H, Total Protein 6.4, Albumin 3.5, Globulin 3.0, Albumin/Globulin Ratio 1.2 Microbiology: Microbiology 07/20/25 16:31 Mucosa - Nasopharyngeal Respiratory Panel (PCR) - Final 07/20/25 14:30 Mucosa - Nose SARS-CoV-2, Influenza & RSV (PCR) - Final D/C Instructions Call your doctor if you observe: Fever of 101 or Higher, Shortness of breath, Dizziness, Fainting spells, Swelling in the ankles, Chest pain and Increased palpitations (irregular heartbeat) DC O2, CPAP, BIPAP Needs Home O2 Discharge instructions: No Meaningful Use Info Meaningful Use Meaningful Use Diagnoses (Choose all that apply): None applicable Discharge Plan Admission Admit Date/Time: 07/20/25 15:05 Attending Provider: Mode Christianson Primary Care Provider: Kevin Stauffer Consulting Providers: Mary Wang Discharge Orders/Prescriptions Prescriptions: New dexamethasone 1.5 mg tablet 1.5 mg PO DAILY Qty: 18 0RF Rx Instructions: Take 3 tablets daily for 3 days then 2 tablets daily for 3 days then 1 tablet daily for 3 days then resume your home dosing oxycodone 5 mg tablet 5 mg PO Q8H PRN (Reason: pain) 3 Days Qty: 10 0RF Continued albuterol sulfate [Ventolin HFA] 90 mcg/actuation HFA aerosol inhaler 2 inh INHALATION Q4H PRN (Reason: sob) Patient Comments: Inhale 2 Puffs as instructed every 4 hours as needed. pantoprazole 40 mg tablet,delayed release (DR/EC) 40 mg PO DAILY atorvastatin 10 mg tablet 10 mg PO DAILY Patient Comments: TAKE 1 TABLET BY MOUTH ONCE DAILY levothyroxine 125 mcg tablet 125 mcg PO DAILY Patient Comments: Take 1 tablet by mouth once daily. M=S AND 1.5 ON MONDAY clomipramine 50 mg capsule 100 mg PO BID alprazolam 0.5 mg tablet 0.5 mg PO Q8H PRN (Reason: anxiety) topiramate 25 mg tablet 25 mg PO QHS lurasidone 60 mg tablet 60 mg PO QPM lamotrigine 100 mg tablet 100 mg PO DAILY Jardiance 10 mg tablet 10 mg PO DAILY ondansetron 4 mg tablet,disintegrating 4 mg PO TID PRN (Reason: nausea/vomiting) potassium chloride 10 mEq tablet extended release 10 meq PO BID dexamethasone 0.75 mg tablet 0.75 mg PO Q24H Referrals / Follow Up: Kevin Stauffer MD [Primary Care Provider, Medical] - Within 1 Week Disposition Disposition (needs filled in before D/C Order can be placed): Home, Self Care Charges/Coding Visit Charges Inpatient E&M: 09062 Disch Hosp >30min
[2025-07-22 12:25] VITALS: BP 110/65; PULSE 63; RESP 16; TEMP 36.1; O2SAT 95
== END 2025-07-22 12:50 | disposition home or self-care (01) ==
LOC: ED 14:55 → PCU 15:20
PROVIDERS: Admitting Provider Internal Medicine; Emergency Provider Emergency Medicine; PCP Family Medicine; Visit Provider Family Medicine
DX: E27.1 Primary adrenocortical insufficiency (principal); E11.43 Type 2 diabetes mellitus with diabetic autonomic (poly)neuropathy; E03.9 Hypothyroidism, unspecified; K75.81 Nonalcoholic steatohepatitis (NASH); F32.A Depression, unspecified; K21.9 Gastro-esophageal reflux disease without esophagitis; F41.9 Anxiety disorder, unspecified; Z87.891 Personal history of nicotine dependence; Z79.51 Long term (current) use of inhaled steroids; Z79.899 Other long term (current) drug therapy
CPT/HCPCS: 36415; 80053; 81001; 82533; 82962; 84703; 85025; 87631; 87633; 96361; 96365; 96366; 96375; 96376; 99221; 99285; A4216; G0378; J2405

== ENCOUNTER 2025-08-26 08:39 | Observation (INO) | payer OTHER, SELFPAY ==
[2025-08-26] VITALS (8 sets, daily range): BP systolic 83–115; BP diastolic 63–87; PULSE 64–101; RESP 14–18; TEMP 36.4–36.6; O2SAT 95–100; BMI 34.7; BMI 34.4
--- NOTE | 2025-08-26 09:16 | EX.ED.DYSGE1 ---
HPI History of Present Illness Chief Complaint: General Illness Informant: patient Narrative Narrative: Patient is a 30-year-old female with history of [place]'s disease, Graves' disease, type 2 diabetes mellitus (reports hypoglycemia), gastroparesis, migraines, depression and anxiety, IBS and MASH and GERD presenting with concern addisonian crisis. Patient states she has had an increased stress with home and work lately. States she started to feel like she is maybe getting an addisonian crisis yesterday with her typical symptoms of liver hurting (pain on her right side). This morning she felt dizzy, her feet felt flushed, she was shaky and had increased pain on her right side. She denies any nausea or vomiting. No she has had some recent urinary frequency does have a history of urinary tract infections. Denies any dysuria. Notes that she did not take her Decadron today (normally on 0.75 mg daily and supposed to double it if she is having a crisis). Took a normal dose yesterday. Denies any recent infectious symptoms, URI symptoms or fevers. Came in for further evaluation. She follows with Dr. Pride through the [facility] for endocrinology. Chart review shows that patient was admitted for similar presentation on 07/20 through 07/22 and at that time and had a recent URI symptoms. Liver enzymes were downtrending and she was opposed to follow-up for the GROSS. Patient does admit she has not been able to follow-up. [facility] Medical History Depression Kidney stones GI bleed Irregular heart beat Migraines Acute adrenal insufficiency Addisonian crisis Addisons disease Gastroparesis Dysphagia Wears glasses History of steroid therapy Diabetes Low iron Easy bruising Restless legs Seizures Difficulty swallowing History of ulceration History of IBS History of diverticulitis Gastric reflux Former smoker Asthma Shortness of breath on exertion Cardiology follow-up encounter History of echocardiogram History of stress test Chest pain History of left heart catheterization Anxiety and depression Graves disease Abnormal uterine bleeding (AUB) Endometriosis determined by laparoscopy Adenomyosis Chronic female pelvic pain Migraine Mild intermittent asthma Home Medications ?Medication ?Instructions ?Recorded ?Last Taken ?Type albuterol sulfate 90 mcg/actuation 2 inh inhalation Q4H PRN sob 08/09/22 Unknown History aerosol inhaler (Ventolin HFA) pantoprazole 40 mg tablet,delayed 40 mg PO DAILY GERD 02/23/23 07/20/25 History release atorvastatin 10 mg tablet 10 mg PO DAILY hyperlipidemia 07/24/23 08/25/25 History clomipramine 50 mg capsule 100 mg PO BID DEPRESSION 07/24/23 08/26/25 History levothyroxine 125 mcg tablet 125 mcg PO DAILY THYROID 07/24/23 08/25/25 History alprazolam 0.5 mg tablet 0.5 mg PO Q8H PRN anxiety 02/16/25 08/25/25 History empagliflozin 10 mg tablet 10 mg PO DAILY TYPE 2 DIABETES 02/16/25 08/26/25 History (Jardiance) lamotrigine 100 mg tablet 100 mg PO DAILY MOOD 02/16/25 08/25/25 History lurasidone 60 mg tablet 60 mg PO QPM MOOD 02/16/25 08/25/25 History topiramate 25 mg tablet 25 mg PO QHS migraine 02/16/25 08/25/25 History ondansetron 4 mg disintegrating 4 mg PO TID PRN nausea/vomiting 07/20/25 08/19/25 History tablet Allergy/AdvReac Type Severity Reaction Status Date / Time acetaminophen (From Excedrin Allergy Anaphylaxis Verified 07/20/25 13:07 Migraine) aspirin (From Excedrin Allergy Anaphylaxis Verified 07/20/25 13:07 Migraine) azithromycin (From Zithromax Allergy Anaphylaxis Verified 07/20/25 13:07 Z-Ruiz) bacitracin (From Neosporin Allergy Swelling Verified 07/20/25 13:07 ([id number])) bacitracin zinc (From Allergy Swelling Verified 07/20/25 13:07 Neosporin ([id number])) caffeine (From Excedrin Allergy Anaphylaxis Verified 07/20/25 13:07 Migraine) latex Allergy Rash Verified 07/20/25 13:07 neomycin sulfate (From Allergy Swelling Verified 07/20/25 13:07 Neosporin ([id number])) polymyxin B (From Neosporin Allergy Swelling Verified 07/20/25 13:07 ([id number])) Family History Uncle Diabetes Cancer lung Father Diabetes Grandfather CVA (cerebral vascular accident) Cancer lung, unsure additional type Uncle Cancer brain Grandmother Cancer lung and unsure additional type Surgical History History of cholecystectomy History of appendectomy Hx laparoscopic cholecystectomy History of left salpingo-oophorectomy History of tubal ligation History of laparoscopic-assisted vaginal hysterectomy History of laparoscopy History of wisdom tooth extraction History of thyroidectomy History of section Social History household members: spouse housing: house Smoking Status: Former smoker ROS ROS ED Constitutional Constitutional ED: Reports other Details: flushed feeling ; Denies chills or fever(s) Cardiovascular Cardiovascular: Denies chest pain Respiratory/Chest Respiratory/Chest: Denies cough or dyspnea Gastrointestinal Gastrointestinal: Reports abdominal pain; Denies nausea or vomiting Genitourinary Genitourinary ED: Reports urinary frequency; Denies dysuria or hematuria Musculoskeletal Musculoskeletal: Reports myalgias Integumentary Denies rash Neurologic Neurologic: Reports weakness and other Details: shaky feeling Psychiatric Psychiatric: Reports anxiety Hematologic/Lymphatic Hematologic/Lymphatic: Denies easy bleeding or easy bruising EXAM Physical Exam Const Vital Signs: 08/26/25 08:40 08/26/25 10:39 08/26/25 11:29 Temperature 97.7 F L Temperature Source Oral Pulse Rate 101 H 78 Pulse Rate [Lying] 71 Pulse Rate [Sitting (for 1 minute prior to obtaining)] 84 Respiratory Rate 18 16 Respiratory Effort Respiratory Pattern Blood Pressure 114/84 H 83/72 L Blood Pressure [Lying] 109/73 Blood Pressure [Sitting (for 1 minute prior to obtaining)] 83/72 L Blood Pressure Mean 94 75 Blood Pressure Mean [Lying] 85 Blood Pressure Mean [Sitting (for 1 minute prior to obtaining)] 75 Pulse Ox 100 98 Oxygen Delivery Method Room Air Room Air 08/26/25 12:00 08/26/25 12:24 Temperature Temperature Source Pulse Rate 64 Pulse Rate [Lying] Pulse Rate [Sitting (for 1 minute prior to obtaining)] Respiratory Rate 16 Respiratory Effort Normal Respiratory Pattern Normal Blood Pressure 115/87 H Blood Pressure [Lying] Blood Pressure [Sitting (for 1 minute prior to obtaining)] Blood Pressure Mean 96 Blood Pressure Mean [Lying] Blood Pressure Mean [Sitting (for 1 minute prior to obtaining)] Pulse Ox 98 Oxygen Delivery Method Room Air Positive well nourished and well developed Constitutional Narrative: Patient looks nontoxic but does look like she does not feel well. General Appearance ED: well developed and NAD HEENT Reports moist mucous membranes HEENT Narrative: Flushed face Eyes PERRL General Eye ED: Negative for pale conjunctiva or scleral icterus Neck supple and no JVD Chest Wall inspection of chest normal and palpation of chest normal Resp normal respiratory effort and clear to auscultation bilaterally Cardio regular rate and regular rhythm GI Inspection: Negative for abdominal distention Auscultation: normoactive bowel sounds Palpation: soft and tender RUQ; Negative for rebound tenderness present Extremity normal to inspection General Extremety ED: Negative for edema General Extremity: Negative for edema Neuro Sensorium / Orientation: alert Motor Exam: general weakness Psych mental status grossly normal Mood & Affect: depressed Skin no wounds Rashes: No rashes noted MDM MDM MDM Narrative Medical decision making narrative: Patient evaluated for increased upper quadrant abdominal pain, shaky feeling, dizziness and feeling flushed. She states she feels that she is having and addisonian crisis. Patient's vital signs are stable but she is mildly tachycardic with a heart rate of 101. Denies any acute cardiopulmonary symptoms. She is afebrile. Patient is given fentanyl for pain control and Solu-Cortef for concern of acute addisonian crisis with her history of [place]'s disease. Is given a liter of IV fluids. Tells me that her Dexcom is picking her blood sugars 50. Not she has not anything to eat. Is given apple juice in the emergency room. I will obtain workup looking for cause of her symptoms including infection and looking for electrolyte imbalances. Workup shows a mild anemia which is chronic. Is microcytic in nature. She has a low cortisol a.m. level but her work is otherwise largely normal. After liter of fluid and stress dose of Solu-Cortef orthostatic vital signs are performed and she is quite symptomatic. I spoke with her meeting/event planner through [facility]. He states that her presentation is atypical but given her profound orthostasis does not recommend admission. Wonders if her gastroparesis/IBS is causing poor absorption of her Decadron that she takes orally as she is on a relatively high dose. Also anticipates her cortisol level will be low because of her high baseline steroid need/use. No other acute recommendations at this time. Will speak to hospitalist for admission. Lab Data Labs: Laboratory Results - last 24 hr 08/26/25 08/26/25 08/26/25 09:20 09:24 09:44 WBC 10.0 RBC 4.44 Hgb 11.0 L Hct 34.3 L MCV 77.3 L MCH 24.8 L MCHC 32.1 RDW Std Deviation 49.3 H RDW Coeff of Renetta 17.9 H Plt Count 426 MPV 9.4 Immature Gran % (Auto) 0.900 Neut % (Auto) 46.6 L Lymph % (Auto) 40.7 [place] % (Auto) 9.6 Eos % (Auto) 1.9 Baso % (Auto) 0.3 Absolute Neuts (auto) 4.7 Absolute Lymphs (auto) 4.07 Nucleated RBC % 0 Differential Comment SCANNED Reactive Lymphocytes 1+ Sodium 139 Potassium 3.6 Chloride 103 Carbon Dioxide 25.9 Anion Gap 10 BUN 9 Creatinine 0.92 Estim Creat Clear Calc 99.95 Est GFR (MDRD) Non-Af 85 BUN/Creatinine Ratio 10.2 Glucose 71 Calcium 9.1 Total Bilirubin 0.59 Direct Bilirubin 0.22 AST 17 ALT 22 Alkaline Phosphatase 83 Total Protein 7.1 Albumin 4.0 Globulin 3.1 Cortisol AM Sample 0.14 L Urine Color Yellow Urine Clarity Clear Urine pH 7.0 Ur Specific [place] 1.010 Urine Protein 15 H Urine Glucose (UA) 1000 H Urine Ketones Negative Urine Occult Blood 10 H Urine Nitrite Negative Urine Bilirubin Negative Urine Urobilinogen Normal Ur Leukocyte Esterase Negative Urine RBC 0 SEEN Urine WBC 0 SEEN Ur Squamous Epith Cells 0-5 SEEN Urine Bacteria 0 SEEN Urine Mucus 0 SEEN Management Discussion w/another healthcare provider: Hospitalist and Staffing Director Discharge Plan Dx/Rx/DC Orders Clinical Impression: Weakness, Acute adrenal insufficiency, Type 2 diabetes mellitus, Abdominal pain, RUQ Disposition Disposition: Acute Care Hospital [facility] Discharge Date/Time: 08/26/25 14:43
[2025-08-26] MEDS: 0.9% Normal Saline (1000mL) 1,000 ML 999 ML IV ×2 (09:32→11:36)
[2025-08-26] MEDS: fentaNYL 100 MCG/2 ML Ampul 50 MCG IV (09:32)
[2025-08-26 09:37] LABS: Hematocrit 34.3 % (37-47); Hemoglobin 11.0 g/dL (12.0-15.0); Immature Granulocytes Count 0.090 X10^3/uL (0.0-0.0); Mean Corp Hgb Conc 32.1 g/dL (32-36); Mean Corpuscular Volume 77.3 fL (81-99); Mean Platelet Vol. 9.4 fl (6.2-12.0); NRBC Flagged by Analyzer 0 % (0-5); POSITIVE MORPHOLOGY YES; Platelet Count 426 K/mm3 (150-450); RBC Distribution Width CV 17.9 % (11.6-14.6); RBC Distribution Width SD 49.3 fl (35.1-43.9); Red Blood Count 4.44 M/mm3 (4.2-5.4); White Blood Count 10.0 K/mm3 (4.4-11.0)
[2025-08-26 09:41] LABS: Differential Indicated SCAN CRITERIA MET
[2025-08-26 09:50] LABS: Mucous, Urine 0 SEEN /hpf (<or=2+); Red Blood Cells-Urine 0 SEEN /hpf (0-5)
[2025-08-26 09:59] LABS: Color, Urine Yellow (Yellow); Glucose, Dipstick 1000 mg/dl (Normal); Ketone-Dipstick Negative (Negative); Leukocyte Esterase-Dipstick Negative /ul (Negative); Nitrite-Dipstick Negative (Negative); Occult Blood-Urine 10 /ul (Negative); Protein-Dipstick 15 mg/dl (Negative); Specific Gravity, Urine 1.010 (1.002-1.030); Urine Bilirubin Dipstick Negative (Negative)
[2025-08-26 10:00] LABS: AST(SGOT) 17 U/L (<=31); Alanine Aminotransfer ALT/SGPT 22 U/L (<=34); Albumin, Serum 4.0 g/dL (3.5-5.0); Alkaline Phosphatase 83 U/L (35-104); Anion Gap 10 (5-15); BUN 9 mg/dL (4-19); BUN/Creat Ratio 10.2 RATIO (10-20); Bilirubin, Direct 0.22 mg/dL (0.00-0.30); Calcium,Total 9.1 mg/dL (7.6-11.0); Carbon Dioxide 25.9 mmol/L (21.0-32.0); Chloride 103 mmol/L (98-108); Estimated Creatinine Clearance 99.95 ml/min (50-250); Globulin 3.1 g/dL (2.2-4.2); Glucose 71 mg/dL (70-99); Potassium 3.6 mmol/L (3.3-5.1)
[2025-08-26 10:04] LABS: CORTISOL AM 0.14 ug/dL (6.02-18.40)
[2025-08-26 10:06] LABS: Differential Comment SCANNED; Reactive Lymphocyte 1+
[2025-08-26 10:07] LABS: Squamous Epithelial Cells - UA 0-5 SEEN /hpf (5-10)
--- NOTE | 2025-08-26 13:02 | PCM.HP.STD ---
HPI - General General Date of Service: 08/26/25 Chief Complaint: dizziness, abdominal pain HPI Narrative SONIA SZYMANSKI, is a 30 F with history of presents with weakness, dizziness, right upper quadrant abdominal pain consistent when she gets crises. Has been under stress lately with her uncle recently as well as other personal stressors. Also complains of facial swelling again also consistent with her Jones's crises. She does take dexamethasone 0.75 mg daily states that she has not been missing any doses. Anesthesia presented here, received fentanyl IV, 100 mg of hydrocortisone and Bentyl. She had a cortisol level that was 0.14. FOR[facility]LY [facility] Medical History Depression Kidney stones GI bleed Irregular heart beat Migraines Acute adrenal insufficiency Addisonian crisis Addisons disease Gastroparesis Dysphagia Wears glasses History of steroid therapy Diabetes Low iron Easy bruising Restless legs Seizures Difficulty swallowing History of ulceration History of IBS History of diverticulitis Gastric reflux Former smoker Asthma Shortness of breath on exertion Cardiology follow-up encounter History of echocardiogram History of stress test Chest pain History of left heart catheterization Anxiety and depression Graves disease Abnormal uterine bleeding (AUB) Endometriosis determined by laparoscopy Adenomyosis Chronic female pelvic pain Migraine Mild intermittent asthma Home Medications ?Medication ?Instructions ?Recorded ?Last Taken ?Type albuterol sulfate 90 mcg/actuation 2 inh inhalation Q4H PRN sob 08/09/22 Unknown History aerosol inhaler (Ventolin HFA) pantoprazole 40 mg tablet,delayed 40 mg PO DAILY GERD 02/23/23 07/20/25 History release atorvastatin 10 mg tablet 10 mg PO DAILY hyperlipidemia 07/24/23 08/25/25 History clomipramine 50 mg capsule 100 mg PO BID DEPRESSION 07/24/23 08/26/25 History levothyroxine 125 mcg tablet 125 mcg PO DAILY THYROID 07/24/23 08/25/25 History alprazolam 0.5 mg tablet 0.5 mg PO Q8H PRN anxiety 02/16/25 08/25/25 History empagliflozin 10 mg tablet 10 mg PO DAILY TYPE 2 DIABETES 02/16/25 08/26/25 History (Jardiance) lamotrigine 100 mg tablet 100 mg PO DAILY MOOD 02/16/25 08/25/25 History lurasidone 60 mg tablet 60 mg PO QPM MOOD 02/16/25 08/25/25 History topiramate 25 mg tablet 25 mg PO QHS migraine 02/16/25 08/25/25 History ondansetron 4 mg disintegrating 4 mg PO TID PRN nausea/vomiting 07/20/25 08/19/25 History tablet Allergy/AdvReac Type Severity Reaction Status Date / Time acetaminophen (From Excedrin Allergy Anaphylaxis Verified 07/20/25 13:07 Migraine) aspirin (From Excedrin Allergy Anaphylaxis Verified 07/20/25 13:07 Migraine) azithromycin (From Zithromax Allergy Anaphylaxis Verified 07/20/25 13:07 Z-Ruiz) bacitracin (From Neosporin Allergy Swelling Verified 07/20/25 13:07 ([id number])) bacitracin zinc (From Allergy Swelling Verified 07/20/25 13:07 Neosporin ([id number])) caffeine (From Excedrin Allergy Anaphylaxis Verified 07/20/25 13:07 Migraine) latex Allergy Rash Verified 07/20/25 13:07 neomycin sulfate (From Allergy Swelling Verified 07/20/25 13:07 Neosporin ([id number])) polymyxin B (From Neosporin Allergy Swelling Verified 07/20/25 13:07 ([id number])) Family History Uncle Diabetes Cancer lung Father Diabetes Grandfather CVA (cerebral vascular accident) Cancer lung, unsure additional type Uncle Cancer brain Grandmother Cancer lung and unsure additional type Surgical History History of cholecystectomy History of appendectomy Hx laparoscopic cholecystectomy History of left salpingo-oophorectomy History of tubal ligation History of laparoscopic-assisted vaginal hysterectomy History of laparoscopy History of wisdom tooth extraction History of thyroidectomy History of section Social History household members: spouse housing: house Smoking Status: Former smoker ROS ROS Narrative Nausea, no vomiting. No fever or chills. No dysuria, no diarrhea. No rashes. Vital Signs Vital Signs Vital Signs: 08/26/25 08:40 08/26/25 10:39 08/26/25 11:29 Temperature 36.5 C L Temperature Source Oral Pulse Rate 101 H 78 Pulse Rate [Lying] 71 Pulse Rate [Sitting (for 1 minute prior to obtaining)] 84 Respiratory Rate 18 16 Respiratory Effort Respiratory Pattern Blood Pressure 114/84 H 83/72 L Blood Pressure [Lying] 109/73 Blood Pressure [Sitting (for 1 minute prior to obtaining)] 83/72 L Blood Pressure Mean 94 75 Blood Pressure Mean [Lying] 85 Blood Pressure Mean [Sitting (for 1 minute prior to obtaining)] 75 Pulse Ox 100 98 Oxygen Delivery Method Room Air Room Air 08/26/25 12:00 08/26/25 12:24 Temperature Temperature Source Pulse Rate 64 Pulse Rate [Lying] Pulse Rate [Sitting (for 1 minute prior to obtaining)] Respiratory Rate 16 Respiratory Effort Normal Respiratory Pattern Normal Blood Pressure 115/87 H Blood Pressure [Lying] Blood Pressure [Sitting (for 1 minute prior to obtaining)] Blood Pressure Mean 96 Blood Pressure Mean [Lying] Blood Pressure Mean [Sitting (for 1 minute prior to obtaining)] Pulse Ox 98 Oxygen Delivery Method Room Air Weight Weight: 94.801 kg Body Mass Index (BMI) 34.7 Physical Exam Const alert and no apparent distress Constitutional Narrative: No respiratory distress. No conversational dyspnea. HEENT normocephalic, head/scalp atraumatic, hearing grossly normal bilaterally and moist oral mucous membranes Resp normal respiratory effort, no retractions, no use of accessory muscles and clear to auscultation bilaterally Cardio regular rate, regular rhythm, S1 normal heart sound and S2 normal heart sound GI GI Narrative: Exhibited discomfort with manual palpation of the right upper quadrant. Did not exhibit discomfort from pressure in the right upper quadrant with the stethoscope. Nondistended. Normal bowel sounds. Neuro Sensorium / Orientation: awake and alert Results Lab / Micro Data 08/26/25 09:20 08/26/25 09:20 Labs: Laboratory Results - last 24 hr 08/26/25 09:20: WBC 10.0, RBC 4.44, Hgb 11.0 L, Hct 34.3 L, MCV 77.3 L, MCH 24.8 L, MCHC 32.1, RDW Std Deviation 49.3 H, RDW Coeff of Renetta 17.9 H, Plt Count 426, MPV 9.4, Immature Gran % (Auto) 0.900, Neut % (Auto) 46.6 L, Lymph % (Auto) 40.7, [place] % (Auto) 9.6, Eos % (Auto) 1.9, Baso % (Auto) 0.3, Absolute Neuts (auto) 4.7, Absolute Lymphs (auto) 4.07, Nucleated RBC % 0, Differential Comment SCANNED, Reactive Lymphocytes 1+, Sodium 139, Potassium 3.6, Chloride 103, Carbon Dioxide 25.9, Anion Gap 10, BUN 9, Creatinine 0.92, Estim Creat Clear Calc 99.95, Est GFR (MDRD) Non-Af 85, BUN/Creatinine Ratio 10.2, Glucose 71, Calcium 9.1, Total Bilirubin 0.59, Direct Bilirubin 0.22, AST 17, ALT 22, Alkaline Phosphatase 83, Total Protein 7.1, Albumin 4.0, Globulin 3.1 08/26/25 09:24: Cortisol AM Sample 0.14 L 08/26/25 09:44: Urine Color Yellow, Urine Clarity Clear, Urine pH 7.0, Ur Specific [place] 1.010, Urine Protein 15 H, Urine Glucose (UA) 1000 H, Urine Ketones Negative, Urine Occult Blood 10 H, Urine Nitrite Negative, Urine Bilirubin Negative, Urine Urobilinogen Normal, Ur Leukocyte Esterase Negative, Urine RBC 0 SEEN, Urine WBC 0 SEEN, Ur Squamous Epith Cells 0-5 SEEN, Urine Bacteria 0 SEEN, Urine Mucus 0 SEEN Assessment & Plan Assessment/Plan (1) Acute adrenal insufficiency: PLAN: Unclear if true adrenal crisis versus some other possibility. Patient did receive IV hydrocortisone. Patient has some personal stressors that are compounding this assessment treatment was not true adrenal crisis. Nonetheless, her a.m. cortisol was low. Patient received that 100 mg of IV hydrocortisone. Will continue with 50 mg every 6 hours with plans to taper to cortisone on discharge. I looked through Dr. Burris but was unable to find any information through the [facility] system Recommend patient follow-up with her quahogger after discharge close follow-up. Patient planing of abdominal pain LFTs at this time are improved from previous. If she does have worsening abdominal pain and need to consider CT imaging. Patient's last CT imaging we have in our system from November of this year. As needed oxycodone. PLAN: Plan Hyperglycemia: Continue empagliflozin. Sliding scale insulin. Hypothyroidism: Continue levothyroxine Hyperlipidemia: Continue atorvastatin Mood disorder: Continue lamotrigine and alprazolam Multiple medical allergies. Patient has noted anaphylaxis to a myriad of medications including acetaminophen, aspirin, and azithromycin, and Excedrin, as well as swelling due to other medications. If these are true allergies and plaque cyst then patient should have close follow-up with an gis analyst developer Class I: Complicates care and recovery. The prophylaxis with experience Charges/Coding Visit Charges Inpatient E&M: 52894 Init Hosp L2
[2025-08-26] MEDS: 0.9% Normal Saline (1000mL) 1,000 ML 150 ML IV (15:24)
--- NOTE | 2025-08-26 17:15 | CASEMGMT ---
Social Work- SW was requested by pt. SW introduced self and role. Pt reports that she would like to discuss an issue with care provider. Pt tearful and visibly upset. Pt shared experiences and request for a new provider. It was noted that provider was not documented to have previously been a provider for pt personally. SW collaborated with charge nurse and bedside nurse, as well as SW supervisor cigar making hand. A new care provider was assigned; pt updated. Pt appreciative and reports that all other staff have been helpful and good. SW remains available to follow. EASTON Sharma
[2025-08-26] MEDS: LURASIDONE HCL 40 MG TABLET 60 MG PO (22:52)
[2025-08-26] MEDS: 0.9% Saline Lock 10 ML Syringe IV (23:00)
[2025-08-27] MEDS: 0.9% Saline Lock 10 ML Syringe IV ×4 (00:08→16:59)
[2025-08-27 03:35] LABS: Hematocrit 35.9 % (37-47); Hemoglobin 11.2 g/dL (12.0-15.0); Immature Granulocytes Count 0.090 X10^3/uL (0.0-0.0); Mean Corp Hgb Conc 31.2 g/dL (32-36); Mean Corpuscular Volume 78.7 fL (81-99); Mean Platelet Vol. 9.3 fl (6.2-12.0); NRBC Flagged by Analyzer 0 % (0-5); Platelet Count 442 K/mm3 (150-450); RBC Distribution Width CV 17.9 % (11.6-14.6); RBC Distribution Width SD 50.8 fl (35.1-43.9); Red Blood Count 4.56 M/mm3 (4.2-5.4); White Blood Count 14.7 K/mm3 (4.4-11.0)
[2025-08-27 04:03] LABS: AST(SGOT) 14 U/L (<=31); Alanine Aminotransfer ALT/SGPT 18 U/L (<=34); Albumin, Serum 3.8 g/dL (3.5-5.0); Alkaline Phosphatase 92 U/L (35-104); Anion Gap 13 (5-15); BUN 5 mg/dL (4-19); BUN/Creat Ratio 8.4 RATIO (10-20); Calcium,Total 8.7 mg/dL (7.6-11.0); Carbon Dioxide 19.7 mmol/L (21.0-32.0); Chloride 105 mmol/L (98-108); Estimated Creatinine Clearance 147.57 ml/min (50-250); Globulin 2.9 g/dL (2.2-4.2); Glucose 118 mg/dL (70-99); Potassium 3.8 mmol/L (3.3-5.1)
[2025-08-27 04:39] VITALS: BP 107/72; PULSE 63; RESP 16; TEMP 36.6; O2SAT 99
[2025-08-27] MEDS: Lidocaine 5% Patch 1 PATCH TOPICAL (08:07)
--- NOTE | 2025-08-27 10:39 | PCM.PN.HOSP ---
Reason for Visit Chief Complaint: dizziness, abdominal pain Subjective Subjective Still dizzy when she gets up and needed help getting to the bathroom but was able to get there, still having some abdominal pain consistent with her typical adrenal crisis which is slightly improving but still present, no changes in bowel, not vomiting, overall slowly improving Objective Data Objective Data Vital Signs: Vital Signs Temp Pulse Resp BP Pulse Ox O2 Del Method 98 F 63 16 107/72 99 Room Air 08/27/25 04:39 08/27/25 04:39 08/27/25 04:39 08/27/25 04:39 08/27/25 04:39 08/27/25 04:39 Oxygen Delivery Method Room Air Weight: 93.9 kg Body Mass Index (BMI) 34.4 Intake & Output: Intake and Output for Last 24 Hours 08/25/25 08/26/25 08/27/25 23:59 23:59 23:59 Intake Total 3000 / 3330 730 / 730 Balance 3000 / 3330 730 / 730 Lab / Micro Data 08/27/25 03:01 08/27/25 03:01 Labs: Laboratory Results - last 24 hr 08/26/25 16:33: POC Glucose 124 H 08/26/25 22:51: POC Glucose 109 H 08/27/25 03:01: WBC 14.7 H, RBC 4.56, Hgb 11.2 L, Hct 35.9 L, MCV 78.7 L, MCH 24.6 L, MCHC 31.2 L, RDW Std Deviation 50.8 H, RDW Coeff of Renetta 17.9 H, Plt Count 442, MPV 9.3, Immature Gran % (Auto) 0.600, Neut % (Auto) 80.8 H, Lymph % (Auto) 14.1 L, [place] % (Auto) 4.2, Eos % (Auto) 0.1, Baso % (Auto) 0.2, Absolute Neuts (auto) 11.9 H, Absolute Lymphs (auto) 2.06, Nucleated RBC % 0, Sodium 137, Potassium 3.8, Chloride 105, Carbon Dioxide 19.7 L, Anion Gap 13, BUN 5, Creatinine 0.62 L, Estim Creat Clear Calc 147.57, Est GFR (MDRD) Non-Af 121, BUN/Creatinine Ratio 8.4 L, Glucose 118 H, Calcium 8.7, Total Bilirubin 0.51, AST 14, ALT 18, Alkaline Phosphatase 92, Total Protein 6.7, Albumin 3.8, Globulin 2.9, Albumin/Globulin Ratio 1.3 08/27/25 06:18: POC Glucose 86 Physical Exam Narrative General: Alert, oriented HEENT: Atraumatic, normocephalic Eyes: Anicteric, normal conjunctiva, extraocular movements grossly intact Neck: Supple Respiratory: Clear to auscultation bilaterally, normal respiratory effort Cardiovascular: Regular rate and rhythm GI: Soft, tender in right upper quadrant without rebound, guarding, rigidity Extremities: No edema Musculoskeletal: Moving all extremities Neuro: No overt focal neurological deficits Skin: No rashes appreciated Psych: Cooperative Assessment & Plan Assessment/Plan (1) Acute adrenal insufficiency: PLAN: Plan #Acute adrenal insufficiency - Symptoms consistent with previous flares - Patient on stress dose steroids - Receiving IV fluids - Slowly improving #Hypothyroidism -Continue Synthroid # Prediabetes - A1c 5.8% on 02/17/2025 - Glucose checks and sliding scale insulin #Depression/anxiety -Continue home medications #GERD -Continue PPI #DVT ppx: Lovenox subcu Mary Wang MD Time spent in the patient's overall evaluation, decision-making process, review of diagnostic data, adjustment of management, discussion with other providers, nursing and ancillary staff involved in patient's care documentation, 37 Minutes Charges/Coding Visit Charges Inpatient E&M: 28078 Subs Hosp L2
[2025-08-27] MEDS: 0.9% Normal Saline (1000mL) 1,000 ML 250 ML IV (11:35)
[2025-08-27 22:13] VITALS: BP 117/81; PULSE 63; RESP 18; TEMP 36.4; O2SAT 99
[2025-08-27] MEDS: LURASIDONE HCL 40 MG TABLET 60 MG PO (22:23)
[2025-08-28] MEDS: 0.9% Saline Lock 10 ML Syringe IV ×3 (00:31→11:57)
[2025-08-28 03:36] LABS: Hematocrit 35.4 % (37-47); Hemoglobin 10.8 g/dL (12.0-15.0); Mean Corp Hgb Conc 30.5 g/dL (32-36); Mean Corpuscular Volume 79.2 fL (81-99); Mean Platelet Vol. 9.3 fl (6.2-12.0); Platelet Count 433 K/mm3 (150-450); RBC Distribution Width CV 17.9 % (11.6-14.6); RBC Distribution Width SD 51.1 fl (35.1-43.9); Red Blood Count 4.47 M/mm3 (4.2-5.4); White Blood Count 13.2 K/mm3 (4.4-11.0)
[2025-08-28 04:07] LABS: Anion Gap 12 (5-15); BUN 8 mg/dL (4-19); BUN/Creat Ratio 11.6 RATIO (10-20); Calcium,Total 8.6 mg/dL (7.6-11.0); Carbon Dioxide 21.6 mmol/L (21.0-32.0); Chloride 106 mmol/L (98-108); Estimated Creatinine Clearance 138.63 ml/min (50-250); Glucose 128 mg/dL (70-99); Potassium 3.9 mmol/L (3.3-5.1)
[2025-08-28 05:00] VITALS: BP 139/94; PULSE 88; RESP 16; TEMP 36.5; O2SAT 100
[2025-08-28 08:00] VITALS: BP 122/90; PULSE 62; RESP 12; TEMP 36.3; O2SAT 97
[2025-08-28] MEDS: Lidocaine 5% Patch 1 PATCH TOPICAL (08:35)
--- NOTE | 2025-08-28 10:38 | NURSING ---
0985-CAME TO ROOM WITH PAIN MEDICINE WAS TOLD TO PT. PT SLEEPING.
--- NOTE | 2025-08-28 13:12 | CASEMGMT ---
SKIP CM into pt room, pt denies any homegoing needs. Pt states she has a walker and shower chair at home. Pt states she feels weak but denies need for any therapy. She states it will just take time to get back to normal.
[2025-08-28 14:00] VITALS: BP 103/68; PULSE 69; RESP 15; TEMP 36.3; O2SAT 100
[2025-08-28 15:00] VITALS: BP 103/68; BP 111/71; BP 119/64; PULSE 69; PULSE 84; PULSE 90
--- NOTE | 2025-08-28 15:59 | DS.PCM_ITS ---
Providers Date of Admission: 08/26/25 Date of Discharge: 08/28/25 Primary Care Physician: Dr. Kevin Stauffer MD Reason For Visit: DIZZINESS Diagnosis Discharge Diagnosis (1) Acute adrenal insufficiency: Status: Acute Code(s): E27.40 - Unspecified adrenocortical insufficiency Plan #Acute adrenal insufficiency #Hypothyroidism # Prediabetes #Depression/anxiety #GERD Medications at Discharge Home Medications albuterol sulfate 90 mcg/actuation aerosol inhaler (Ventolin HFA) 2 inh inhalation Q4H PRN sob 08/09/22 pantoprazole 40 mg tablet,delayed release 40 mg PO DAILY GERD 02/23/23 atorvastatin 10 mg tablet 10 mg PO DAILY hyperlipidemia 07/24/23 clomipramine 50 mg capsule 100 mg PO BID DEPRESSION 07/24/23 levothyroxine 125 mcg tablet 125 mcg PO DAILY THYROID 07/24/23 alprazolam 0.5 mg tablet 0.5 mg PO Q8H PRN anxiety 02/16/25 empagliflozin 10 mg tablet (Jardiance) 10 mg PO DAILY TYPE 2 DIABETES 02/16/25 lamotrigine 100 mg tablet 100 mg PO DAILY MOOD 02/16/25 lurasidone 60 mg tablet 60 mg PO QPM MOOD 02/16/25 topiramate 25 mg tablet 25 mg PO QHS migraine 02/16/25 ondansetron 4 mg disintegrating tablet 4 mg PO TID PRN nausea/vomiting 07/20/25 dexamethasone 1.5 mg tablet See Rx Instructions .Route .COMPLEX #18 tabs 08/28/25 oxycodone 5 mg tablet 5 mg PO Q6H PRN Pain Score 4-10 3 days #12 tabs 08/28/25 Hospital Course Summary of Care Provided Minutes Spent on Discharge: 24 Hospital Course: SONIA SZYMANSKI, is a 30-year-old female history of Hanna's disease, GERD, hypothyroidism, depression and anxiety who presented to [facility] ED 08/26/2025 with generalized weakness, right upper quadrant pain, and lightheadedness with concern she was having an Davonte's flare. Patient was unable to complete orthostats due to significant drop in blood pressure with symptoms. Hospitalist contacted for admission, she was given stress dose steroids and IV fluids and supportive care. Patient slowly improved, on day of discharge does report she is feeling tired but reports all of her symptoms are slowly improving and lightheadedness improving, does still the right upper quadrant pain which she said is the exact same as all of her other flares and that slowly improving as well. Aside from feeling tired there are no other new or acute complaints, discussed with patient staying 1 more night versus discharge home and ultimately patient comfortable discharging home. Orthostats negative on day of discharge. Lab work with no acute process and was similar to the day before. Pt discharged w/ decadron taper and instructions to follow up w/ outpt providers Physical Exam Narrative General: Tired but is awake and answers questions appropriately HEENT: Atraumatic, normocephalic Eyes: extraocular movements grossly intact Neck: Supple Respiratory: normal respiratory effort Cardiovascular: no edema appreciated GI: nondistended, still some right upper quadrant pain consistent with previous Extremities: Moving all extremities Neuro: No overt focal neurological deficits Psych: Cooperative Weight / BMI Weight Weight: 93.9 kg Body Mass Index (BMI) 34.4 ABG / Lab / Microbiology Data 08/28/25 03:24 08/28/25 03:24 Laboratory: Laboratory Results - last 24 hr 08/27/25 16:58: POC Glucose 132 H 08/27/25 22:16: POC Glucose 103 08/28/25 03:24: WBC 13.2 H, RBC 4.47, Hgb 10.8 L, Hct 35.4 L, MCV 79.2 L, MCH 24.2 L, MCHC 30.5 L, RDW Std Deviation 51.1 H, RDW Coeff of Renetta 17.9 H, Plt Count 433, MPV 9.3, Sodium 139, Potassium 3.9, Chloride 106, Carbon Dioxide 21.6, Anion Gap 12, BUN 8, Creatinine 0.66 L, Estim Creat Clear Calc 138.63, Est GFR (MDRD) Non-Af 120, BUN/Creatinine Ratio 11.6, Glucose 128 H, Calcium 8.6 08/28/25 06:46: POC Glucose 94 08/28/25 10:59: POC Glucose 120 H 08/28/25 16:40: POC Glucose 160 H D/C Instructions DC O2, CPAP, BIPAP Needs Home O2 Discharge instructions: No Meaningful Use Info Meaningful Use Meaningful Use Diagnoses (Choose all that apply): None applicable Discharge Plan Admission Admit Date/Time: 08/26/25 13:01 Primary Reason for Your Visit: Adrenal crisis Attending Provider: Mary Wang Primary Care Provider: Kevin Stauffer Consulting Providers: Terrance Dumas Instructions Patient Instructions: ED Fall Prevention Additional Instructions / Restrictions: DISCHARGE INSTRUCTIONS PLEASE READ *Please take this with you to your next doctors appointment* - A prescription of dexamethasone was sent to your preferred pharmacy on file for stress dose steroids -Take 3 tablets daily for 3 days then 2 tablets daily for 3 days then 1 tablet daily for 3 days then resume your home dosing - Please follow-up with the physician who manages your steroids for further instructions and management -A prescription for medicine to help with your pain was also sent to your preferred pharmacy on file -Please call your primary care provider's office upon discharge to schedule a hospital follow up within 1 week. -For any concerning signs or symptoms please call 911 or proceed to the nearest emergency department Discharge Orders/Prescriptions Prescriptions: New oxycodone 5 mg Tablet 5 mg PO Q6H PRN (Reason: Pain Score 4-10) 3 Days Qty: 12 0RF dexamethasone 1.5 mg tablet See Rx Instructions .ROUTE .COMPLEX Qty: 18 0RF Rx Instructions: Take 3 tablets daily for 3 days then 2 tablets daily for 3 days then 1 tablet daily for 3 days then resume your home dosing Continued albuterol sulfate [Ventolin HFA] 90 mcg/actuation HFA aerosol inhaler 2 inh INHALATION Q4H PRN (Reason: sob) Patient Comments: Inhale 2 Puffs as instructed every 4 hours as needed. pantoprazole 40 mg tablet,delayed release (DR/EC) 40 mg PO DAILY atorvastatin 10 mg tablet 10 mg PO DAILY Patient Comments: TAKE 1 TABLET BY MOUTH ONCE DAILY levothyroxine 125 mcg tablet 125 mcg PO DAILY clomipramine 50 mg capsule 100 mg PO BID alprazolam 0.5 mg tablet 0.5 mg PO Q8H PRN (Reason: anxiety) topiramate 25 mg tablet 25 mg PO QHS lurasidone 60 mg tablet 60 mg PO QPM lamotrigine 100 mg tablet 100 mg PO DAILY Jardiance 10 mg tablet 10 mg PO DAILY ondansetron 4 mg tablet,disintegrating 4 mg PO TID PRN (Reason: nausea/vomiting) Referrals / Follow Up: Kevin Stauffer MD [Primary Care Provider, Medical] - Within 1 Week Disposition Disposition (needs filled in before D/C Order can be placed): Home, Self Care Charges/Coding Visit Charges Inpatient E&M: 60642 Disch Hosp
--- NOTE | 2025-08-28 16:35 | PHA.DC_ITS ---
Pharmacy [facility] has performed discharge medication counseling for this patient. The patient was counseled on the following discharge medications and changes in medications for homegoing review. - Dexamethasone 1.5 mg tablet, Oxycodone 5 mg tablet The Reason for Use, instructions for use, and potential side effects were reviewed for all new medications. The patient's questions regarding all of their medications were answered. The patient was able to verbally demonstrate an understanding of their discharge medications. Medications at Discharge Home Medications albuterol sulfate 90 mcg/actuation aerosol inhaler (Ventolin HFA) 2 inh inhalation Q4H PRN sob 08/09/22 pantoprazole 40 mg tablet,delayed release 40 mg PO DAILY GERD 02/23/23 atorvastatin 10 mg tablet 10 mg PO DAILY hyperlipidemia 07/24/23 clomipramine 50 mg capsule 100 mg PO BID DEPRESSION 07/24/23 levothyroxine 125 mcg tablet 125 mcg PO DAILY THYROID 07/24/23 alprazolam 0.5 mg tablet 0.5 mg PO Q8H PRN anxiety 02/16/25 empagliflozin 10 mg tablet (Jardiance) 10 mg PO DAILY TYPE 2 DIABETES 02/16/25 lamotrigine 100 mg tablet 100 mg PO DAILY MOOD 02/16/25 lurasidone 60 mg tablet 60 mg PO QPM MOOD 02/16/25 topiramate 25 mg tablet 25 mg PO QHS migraine 02/16/25 ondansetron 4 mg disintegrating tablet 4 mg PO TID PRN nausea/vomiting 07/20/25 dexamethasone 1.5 mg tablet See Rx Instructions .Route .COMPLEX #18 tabs 08/28/25 oxycodone 5 mg tablet 5 mg PO Q6H PRN Pain Score 4-10 3 days #12 tabs 08/28/25
== END 2025-08-28 16:58 | disposition home or self-care (01) ==
LOC: ED 09:37 → MS3 14:40
PROVIDERS: Emergency Provider Emergency Medicine; PCP Family Medicine; Visit Provider Internal Medicine
DX: E27.1 Primary adrenocortical insufficiency (principal); E11.43 Type 2 diabetes mellitus with diabetic autonomic (poly)neuropathy; E11.65 Type 2 diabetes mellitus with hyperglycemia; K31.84 Gastroparesis; R10.11 Right upper quadrant pain; G43.909 Migraine, unspecified, not intractable, without status migrainosus; F41.9 Anxiety disorder, unspecified; F32.A Depression, unspecified; K58.9 Irritable bowel syndrome, unspecified; E03.9 Hypothyroidism, unspecified; E78.5 Hyperlipidemia, unspecified; D64.9 Anemia, unspecified; K75.81 Nonalcoholic steatohepatitis (NASH); K21.9 Gastro-esophageal reflux disease without esophagitis; J45.20 Mild intermittent asthma, uncomplicated; E66.811 Obesity, class 1; Z63.4 Disappearance and death of family member; Z88.6 Allergy status to analgesic agent; Z88.1 Allergy status to other antibiotic agents; Z88.8 Allergy status to other drugs, medicaments and biological substances; Z87.19 Personal history of other diseases of the digestive system; Z79.890 Hormone replacement therapy; Z79.899 Other long term (current) drug therapy; Z79.84 Long term (current) use of oral hypoglycemic drugs; Z87.440 Personal history of urinary (tract) infections; Z87.891 Personal history of nicotine dependence; Z90.49 Acquired absence of other specified parts of digestive tract; Z68.34 Body mass index [BMI] 34.0-34.9, adult
CPT/HCPCS: 36415; 80048; 80053; 80076; 81001; 82024; 82533; 82962; 84439; 84443; 85025; 85027; 96361; 96366; 96372; 96374; 96375; 96376; 97802; 99221; 99285; A4216; G0378

== ENCOUNTER 2025-09-16 18:28 | Emergency (ER) | payer OTHER, SELFPAY ==
[2025-09-16 18:30] VITALS: BP 129/86; PULSE 127; RESP 20; TEMP 35.8; O2SAT 98
[2025-09-16 18:35] VITALS: BP 118/75; PULSE 84; O2SAT 98; BMI 35.0
--- NOTE | 2025-09-16 19:05 | CT_ITS ---
PROCEDURE: CT ABDOMEN/PELVIS W IV CONT ONLY 09/16/2025 REASON FOR EXAM: RUQ PAIN TECHNIQUE: Procedure Code: [id number] Modality: CT Procedure: ABDOMEN/PELVIS W IV CONT ONLY Coronal and Sagittal reconstruction series were provided. CONTRAST: Isovue 370 VOLUME: 100 mL One or more dose reduction techniques were used (e.g., Automated exposure control, adjustment of the mA and/or kV according to patient size, use of iterative reconstruction technique. RADIATION DOSE SUMMARY: DLP: 1001.44 mGycm COMPARISON: 12/10/2024 FINDINGS: Lung bases: Clear. Liver: Diffuse hepatic steatosis. Gallbladder: Surgically absent. Spleen: Unremarkable. Pancreas: Unremarkable. Adrenals: Unremarkable. Kidneys: Unremarkable. No urolithiasis or hydronephrosis. Bladder: Unremarkable. Reproductive Organs: Prior hysterectomy. Unremarkable adnexal regions. Bowel: No evidence of obstruction or active inflammatory process. Appendix appears surgically absent with pericecal surgical material. Lymph nodes: No suspicious lymph node enlargement. Vasculature: Normal caliber abdominal aorta and IVC. Peritoneum / Retroperitoneum: No ascites or free air. Bones: No significant abnormality. CT/Abdomen/Pelvis W IV Cont ONLY IMPRESSION: No acute intra-abdominal pathology. Hepatic steatosis. Reading Location: [id number]
--- NOTE | 2025-09-16 19:05 | EKG12_ITS ---
Test Reason : DYSRHYTHMIA Blood Pressure : */* mmHG Vent. Rate : 108 BPM Atrial Rate : 108 BPM P-R Int : 152 ms QRS Dur : 82 ms QT Int : 298 ms P-R-T Axes : 33 11 19 degrees QTcB Int : 399 ms Sinus tachycardia Nonspecific ST and T wave abnormality Abnormal ECG Confirmed by JAELYN PRO, ELEUTERIO ([id number]), photograph editor SOILA SORIANO ([id number]) on 09/17/2025 9:24:06 AM Referred By: CATHERINE Confirmed By: ELEUTERIO CHRISTY MD
--- NOTE | 2025-09-16 19:05 | RAD_ITS ---
PROCEDURE: CHEST PA AND LATERAL 09/16/2025 REASON FOR EXAM: SOB, RULE OUT PNA TECHNIQUE: Procedure Code: RADCXR Modality: DX Procedure: CHEST PA AND LATERAL COMPARISON: 04/01/2024 FINDINGS: LUNGS AND PLEURA: No focal airspace consolidation. Calcified granulomas again seen. No pleural effusion or pneumothorax. HEART AND MEDIASTINUM: The heart size and mediastinal contours are normal. BONES: No acute osseous abnormality. RAD/Chest PA and Lateral IMPRESSION: NO ACUTE FINDINGS. Reading Location: [id number]
[2025-09-16] MEDS: 0.9% Normal Saline (1000mL) 1,000 ML 999 ML IV (19:22)
[2025-09-16 19:23] LABS: Hematocrit 39.3 % (37-47); Hemoglobin 12.2 g/dL (12.0-15.0); Immature Granulocytes Count 0.060 X10^3/uL (0.0-0.0); Mean Corp Hgb Conc 31.0 g/dL (32-36); Mean Corpuscular Volume 80.0 fL (81-99); Mean Platelet Vol. 9.5 fl (6.2-12.0); NRBC Flagged by Analyzer 0 % (0-5); Platelet Count 446 K/mm3 (150-450); RBC Distribution Width CV 17.6 % (11.6-14.6); RBC Distribution Width SD 50.5 fl (35.1-43.9); Red Blood Count 4.91 M/mm3 (4.2-5.4); White Blood Count 8.6 K/mm3 (4.4-11.0)
--- OUTSIDE RECORDS SUMMARY | 2025-09-16 19:28 | XMS RPT_ITS | CCD ---
Author Organization [facility] Care Team Providers Care Tester Armature Or Fields Name Role Phone ISAIAS BRADLEY Unavailable Unavailable JOSE NARVAEZ Unavailable Unavailable SOLANGE, JOSE W Unavailable Unavailable SABOTA, BRISEYDA W Unavailable Unavailable SABOTA, BRISEYDA W Unavailable Unavailable SABOTA, BRISEYDA W Unavailable Unavailable SABOTA, BRISEYDA W Unavailable Unavailable SABOTA, BRISEYDA W Unavailable Unavailable SABOTA, BRISEYDA W Unavailable Unavailable SABOTA, BRISEYDA W Unavailable Unavailable SABOTA, BRISEYDA W Unavailable Unavailable SABOTA, BRISEYDA W Unavailable Unavailable LEVER, OLIVER Lee Unavailable Unavailable JEFFERSONOLIVER Unavailable Unavaila ble LEVER, OLIVER Lee Unavailable Unavailable LEVER, OLIVER Lee Unavailable Unavailable LEVER, OLIVER Lee Unavailable Unavailable LEVER, OLIVER Lee Unavailable Unavailable KENIA PRESCOTT Attending Unavailable ISAIAS BRADLEY Primary Care Unavailable SYSTEM, PROVIDER NOT IN Referring UnavailISAIAS Spence Primary Care Unavailable AL JULIO COTTON Admitting Unavailab KURT Murphy Consulting Unavailable LONNY VALDES Attending Unavailable Isaias Bradley Primary Care Provider Isaias Bradley Primary Care Provider [phone] Isaias Bradley MD Primary Care Provider Isaias Bradley MD Primary Care Provider Unavailable Primary Care Provider Isaias Hanna MD Primary Care Provider ALAYNA RASMUSSEN Admitting Unavailable LILIANA BUTCHER Referring Unavailable KATE BEGUM Attending Unavailable CONSULT, ENDOCRINOLOGY-GENERAL Consulting U Dr. Isaias Luna Primary Care Provider Guaman, Dr. Villaseñor Emergency Provider Noel, Dr. Cerrato Admit Provider Noel, Dr. Cerrato Attending Provider Noel, Dr. Cerrato Other Provider Hector, Dr. Mcghee Attending Provider Hector, Dr. Mcghee Other Provider Mirna, Dr. Brown Primary Care Provider Rowena, Dr. Villaseñor Emergency Provider Noel, Dr. Cerrato Admit Provider Noel, Dr. Cerrato Attending Provider Noel, Dr. Cerrato Other Provider Hector, Dr. Mcghee Attending Provider Hector, Dr. Mcghee Other Provider Isaias Bradley MD Primary Care Provider Esa Cordero PA-C Unavailable Isaias Bradley MD Unavailable Stanton Serrano RN Unavailable Mario Bowen Attending Unavailable Karen Hernandez Referring Unavailable ISAIAS BRADLEY Primary Care Unavailable ISAIAS BRADLEY Primary Care Unavailable JONO JOHNSON Admitting Unavailable BELKIS CASSIDY Attending Unavailable SANA BRADY Consulting Unavailable Amber Shen RN Unavailable [phone] Dr. Isaias Bradley Primary Care Provider Dr. Elfego Anna Emergency Provider Dr. Kev Caldwell Attending Provider Dr. Elfego Anan Referring Provider ISAIAS BRADLEY Primary Care Unavailable KAMAR BURR Consulting Unavailab le EMILY GARCIAI Admitting Unavailable YANNA GARCIA Attending Unavailable SCOTT III, DARRICK W Attending Unavailable ISAIAS BRADLEY Primary Care Unavailable ISAIAS BRADLEY Referring Unavailable KASHIF III, ISAIAS ALISA (HIST) Referring Unavailable ISAIAS BRADLEY Primary Care Unavailable JOSE GUADALUPE GARCIA Admitting Unavailable JOSE GUADALUPE GARCIA Attending Unavailable Jordy RN, Mode Tavarez Unavailable Unavailalbania Spence RN, Mode Tavarez Unavailable UnavailALIX Dubon Attending Unavailable ISAIAS BRADLEY Primary Care Unavailable Isaias Bradley MD Primary Care Provider ISAIAS ROWLAND Admitting Unavailable ISAIAS ROWLAND Attending Unavailable ISAIAS ROWLAND Primary Care Unavailable ISAIAS BRADLEY MD Primary Care Physician Fuentes Rounding Nurse, Andreas Unavailable Oleg BRADLEY MD, ISAIAS Primary Care Unavailable OTSILAS DAMON Admitting Unavailable ADRI PRO, KASSANDRA Najera Attending Unavailab JESENIA Florian DO Consulting Unavail sidney ELIZONDO MD, SABI Consulting Unavailable MIRNA PRO, ISAIAS Consulting Unavailable Haagen FIELD RESEARCH ASSISTANT.HEALTH CLUB MANAGER, Abby Unavailable Suppan FIELD RESEARCH ASSISTANT.HEALTH CLUB MANAGER, Vida A Unavailable Suppan FIELD RESEARCH ASSISTANT.HEALTH CLUB MANAGER, Vida A Unavailable Suppan FIELD RESEARCH ASSISTANT.HEALTH CLUB MANAGER, Vida A Unavailable Dr. Isaias Bradley MD Primary Care Provider Dr. Elfego Anna DO Attending Provider Dr. Elfego Anna DO Emergency Provider Dr. Agustín Noriega MD Referring Provider Dr. Agustín Noriega MD Emergency Provider Dr. Mary Wang MD Admit Provider Dr. Mary Wang MD Attending Provider Dr. Isaias Bradley MD Primary Care Provider Dr. Mary Wang MD Other Provider Dr. Robbin Hanks DO Attending Provider Dr. Aneudy Reese MD Attending Provider Dr. Oliver Tripp DO Referring Provider Unav ailable Latonya ZUNIGA, Dr. Siegel Other Provider Ayse ZUNIGA, Dr. Carlos Emergency Provider Felipe PRO, Dr. Hernandez Attending Provider Meghan PRO, Dr. Mode Bender Attending Provider Mirna PRO, Dr. Brown Primary Care Physician Ayse ZUNIGA, Dr. Carlos Emergency Department Physi mari Felipe PRO, Dr. Hernandez Admitting Physician Felipe PRO, Dr. Hernandez Nurse Practitioner Meghan PRO, Dr. Mode Bender Attending Physician Meghan PRO, Dr. Mode Bender Nurse Practitioner Beatris ZUNIGA, Dr. Kevin Emergency Department Physici an ISAIAS BRADLEY MD Referring Unavailable MIRNAISAIAS Platt MD Consulting Unavailable RIZZO, CANDIE C Primary Care Unavailable RIZZO, CANDIE C Attending Unavailable RIZZO, CANDIE C Admitting Unavailable PROVIDER, UNKNOWN Consulting Unavailable ISAIAS BRADLEY MD Referring Unavailable ISAIAS BRADLEY MD Consulting Unavailable RIZZO, CANDIE C Admitting Unavailable RIZZO, CANDIE C Primary Care Unavailable RIZZO, CANDIE C Attending Unavailable PROVIDER, UNKNOWN Consulting Unavailable KALANI DYE MD Attending Unavailable KALANI DYE MD Admitting Unavailable ISAIAS BRADLEY MD Referring Unavailable ISAIAS BRADLEY MD Consulting Unavailable KALANI DYE MD Primary Care Unavailable PROVIDER, UNKNOWN Consulting Unavailable ISAIAS BRADLEY MD Referring Unavailable HERB, RODNEY JR Admitting Unavailable HERB, RODNEY JR Primary Care Unavailable RODNEY ESTEVEZ JR Attending Unavailable ISAIAS BRADLEY MD Consulting Unavailable PROVIDER, UNKNOWN Consulting Unavailable TERRANCE VILLAGRAN DO Attending Unavailable TERRANCE VILLAGRAN DO Admitting Unavailable ISAIAS BRADLEY MD Referring Unavailable TERRANCE VILLAGRAN DO Primary Care Unavailable ISAIAS BRADLEY MD Consulting Unavailable PROVIDER, UNKNOWN Consulting Unavailable ISAIAS BRADLEY MD Referring Unavailable ISAIAS BRADLEY MD Consulting Unavailable RIZZO, CANDIE C Admitting Unavailable RIZZO, CANDIE C Primary Care Unavailable RIZZO, CANDIE C Attending Unavailable PROVIDER, UNKNOWN Consulting Unavailable ISAIAS BRADLEY MD Referring Unavailable MIRNA, ISAIAS MD Consulting Unavailable ISAIAS ROWLAND Attending Unavailable ISAIAS ROWLAND Admitting Unavailable ISAIAS ROWLAND Primary Care Unavailable PROVIDER, UNKNOWN Consulting Unavailable ISAIAS BRADLEY MD Referring Unavailable ISAIAS BRADLEY MD Consulting Unavailable RODNEY ESTEVEZ JR Admitting Unavailable RODNEY ESTEVEZ JR Primary Care Unavailable RODNEY ESTEVEZ JR Attending Unavailable PROVIDER, UNKNOWN Consulting Unavailable LEANDRO JUSTIN Attending Unavailable LEANDRO JUSTIN Admitting Unavailable ISAIAS BRADLEY MD Referring Unavailable ISAIAS BRADLEY MD Consulting Unavailable LEANDRO JUSTIN Primary Care Unavailable PROVIDER, UNKNOWN Consulting Unavailable ISAIAS BRADLEY MD Consulting Unavailable RODNEY ESTEVEZ JR Primary Care Unavailable RODNEY ESTEVEZ JR Attending Unavailable ISAIAS BRADLEY MD Referring Unavailable RODNEY ESTEVEZ JR Admitting Unavailable PROVIDER, UNKNOWN Consulting Unavailable Mary Wang Attending Unavailable Terrance Dumas Consulting Unavailable Terrance Dumas Admitting Unavailable [facility] Care Unavailable Felipe, Mary Consulting Unavailable Mode Christianson Attending Unavailable [facility] Care Unavailable Wang, Mary Consulting Unavailable Mary Wang Admitting Unavailable Mode Christianson Consulting Unavailable Terrance Dumas Attending Unavailable [facility] Primary Care Unavailable Wang Mary Consulting Unavailable Mary Wang Attending Unavailable [facility] Care Unavailable Felipe, Mary Admitting Unavailable Oliver Tripp Referring Unavailable Aneudy Reese Attending Unavailable [facility] Care Unavailable Mode Christianson Attending Unavailable Mode Christianson Consulting Unavailable Mary Wang Attending Unavailable WangMary Consulting Unavailable Felipe, Mary Admitting Unavailable Robbin Hanks Attending Unavailable [facility] Primary Care Unavailable Noriega, Agustín Referring Unavailable Robbin Hanks Consulting Unavailable Mary Wang Attending Unavailable Elfego Anna Attending Unavailable [facility] Primary Care Unavailable Wang Mary Consulting Unavailable Mode Christianson Attending Unavailable [facility] Care Unavailable Wang, Mary Admitting Unavailable Wang, Mary Admitting Unavailable Robbin Hanks Attending Unavailable Noriega, Agustín Referring Unavailable Wang, Mary Consulting Unavailable [facility] Primary Care Unavailable WangMary Attending Unavailable Jopperi, Terrance Consulting Unavailable Jopperi, Terrance Admitting Unavailable [facility] Care Unavailable Wang, Mray Consulting Unavailable Mode Christianson Attending Unavailable Mirna, Isaias Primary Care Unavailable Mary Wang Admitting Unavailable ISAIAS BRADLEY Attending Unavailable ISAIAS BRADLEY Primary Care Unavailable KENISHA DAILY Attending Unavailable KENISHA DAILY Referring Unavailable MIRNA, ISAIAS Prajapati Primary Care Unavailable ISAIAS BRADLEY Attending Unavailable ISAIAS BRADLEY Primary Care Unavailable KENISHA DAILY Attending Unavailable KENISHA DAILY Referring Unavailable MIRNA, ISAIAS Prajapati Primary Care Unavailable KENISHA DAILY Attending Unavailable KENISHA DAILY Referring Unavailable MIRNA, ISAIAS Prajapati Primary Care Unavailable MIRNA, ISAIAS Prajapati Attending Unavailable MIRNA, ISAIAS Prajapati Primary Care Unavailable MIRNA, ISAIAS Prajapati Referring Unavailable MIRNA, ISAIAS Prajapati Primary Care Unavailable MIRNA, ISAIAS Prajapati Referring Unavailable MIRNA, ISAIAS Prajapati Primary Care Unavailable KENISHA DAILY Attending Unavailable KENISHA DAILY Referring Unavailable MIRNA, ISAIAS Prajapati Primary Care Unavailable BECKIE DOE Attending Unavaila ble ISAIAS BRADLEY Primary Care Unavailable KENISHA DAILY Attending Unavailable KENISHA DAILY Referring Unavailable MIRNA, ISAIAS Prajapati Primary Care Unavailable KENISHA DAILY Attending Unavailable KENISHA DAILY Referring Unavailable MIRNA, ISAIAS Prajapati Primary Care Unavailable Allergies Allergy Classification Reported Allergen(s) Allergy Type Date of Onset Reaction(s) Facility Acetaminophen / Aspirin / Caffeine (1 source) Acetaminophen / Aspirin / Caffeine; Translations: [APAP/ASA/caffein e] Drug Allergy throat [facility] Acetaminophen / Caffeine (1 source) Acetaminophen / Caffeine Drug Allergy 06-05-20 13 Swelling [facility] bacitracin / neomycin / polymyxin b (2 sources) bacitracin / neomycin / polymyxin b; Translations: [bacitracin/neomy tess/polymyxin B topical] Drug Allergy 04-21-20 14 [facility] Work Phone: Corticosteroids (1 source) predniSONE Drug Allergy 12-23-19 16 Anaphylaxis [facility] Work Phone: Latex (2 sources) Latex Substance Allergy 07-08-20 14 Rash, [facility] Work Phone: Macrolides (antibiotic) (2 sources) Azithromycin; Translations: [azithromycin] Drug Allergy 07-30-20 14 Anaphylaxis [facility] NSAIDs (1 source) Diclofenac Drug Allergy 09-29-20 14 Other: See Comments [facility] (20 sources) acetaminophen / caffeine; Translations: [ACETAMINOPHEN-CA FFEINE] Drug Allergy 06-05-20 13 Swelling [facility] (20 sources) azithromycin; Translations: [AZITHROMYCIN] Drug Allergy 07-30-20 14 Anaphylaxis [facility] (20 sources) diclofenac; Translations: [DICLOFENAC SODIUM] Drug Allergy 09-29-20 14 Other: See Comments [facility] (20 sources) Latex; Translations: [LATEX] Propensity to adverse reactions to drug (disorder) 07-08-20 14 Rash, Hives, Swelling [facility] (20 sources) predniSONE; Translations: [PREDNISONE] Drug Allergy 12-23-19 16 Anaphylaxis [facility] (20 sources) NEOMYCIN-BACITRAC IN-POLYMYXIN; Translations: [NEOMYCIN-BACITRA TESS-POLYMYXIN] Propensity to adverse reactions to drug (disorder) 04-21-20 14 [facility] Repository (2 sources) natural latex rubber; Translations: [LATEX, NATURAL RUBBER] Propensity to adverse reactions to drug (disorder) 08-11-20 17 [facility] Repository (2 sources) ASPIRIN-ACETAMINO PHEN-CAFFEINE; Translations: [ASPIRIN-ACETAMIN OPHEN-CAFFEINE] Propensity to adverse reactions to drug (disorder) 08-11-20 17 Swelling [facility] Repository (2 sources) NEOMYCIN-BACITRAC NZN-POLYMYXNB; Translations: [NEOMYCIN-BACITRA CNZN-POLYMYXNB] Propensity to adverse reactions to drug (disorder) 08-11-20 17 [facility] Repository (20 sources) Bacitracin Drug Allergy 07-21-20 19 [place] (1 source) Neomycin-Polymyxi n-Gramicidin Propensity to adverse reactions to drug 07-21-20 19 [place] (20 sources) Asa-Acetaminophen -Caff-Buffers; Translations: [ASA-ACETAMINOPHE T-MVHW-XBBWEWE] Drug Allergy 02-28-20 17 Anaphylaxis [facility] (1 source) Bacitracin / Polymyxin B Drug Allergy 06-25-20 22 [facility] (3 sources) Acetaminophen / Aspirin / Caffeine; Translations: [EXCEDRIN] Drug Allergy 07-11-20 Anaphylaxis [facility] Repository (20 sources) Bacitracin; Translations: [bacitracin zinc] Drug Allergy 07-11-20 [facility] (20 sources) Neomycin; Translations: [neomycin sulfate] Drug Allergy 07-11-20 Swelling [facility] (20 sources) Polymyxin B Drug Allergy 07-11-20 Swelling [facility] (20 sources) Acetaminophen Drug Allergy 08-09-20 Anaphylaxis [facility] (20 sources) Aspirin Drug Allergy 08-09-20 Anaphylaxis [facility] (20 sources) Caffeine Drug Allergy 08-09-20 Anaphylaxis [facility] (2 sources) Aspirin Drug Allergy [facility] (2 sources) Azithromycin Drug Allergy [facility] (2 sources) Azithromycin Drug Allergy [facility] (2 sources) Bacitracin / Neomycin / Polymyxin B Drug Allergy [facility] (1 source) Acetaminophen Drug Allergy 07-20-20 25 [facility] Repository (1 source) Aspirin Drug Allergy 07-20-20 25 [facility] Repository (1 source) Bacitracin Drug Allergy 07-20-20 25 [facility] Repository (1 source) Caffeine Drug Allergy 07-20-20 25 [facility] Repository (1 source) Ketorolac Drug Allergy 08-27-20 25 [facility] Repository (1 source) polymyxin B Drug allergy (disorder) 07-20-20 25 [facility] Repository Medications Current Medications Medication Drug Class(es) Dates Sig (Normalized) Sig (Original) acetaminophen 500 mg oral tablet (20 sources) Start: 08-19-2022 take 2 tablets enteral route every eight hours as needed acetaminophen (TYLENOL) 500 mg tablet 2 tablets by ORAL/FEEDING TUBE route every 8 hours as needed for pain. 08/19/2022 Active Start: 08-19-2022 take 2 tablets by mo uth every eight hours as needed acetaminophen (TYLENOL) 500 mg tablet 2 tablets by ORAL/FEEDING TUBE route every 8 hours as needed for pain. 0 08/19/2022 Active Start: 06-25-2022 End: 07-05-2022 take 1 tablet by mouth every six hours as needed 650 mg, Oral, EVERY 6 HOURS NEEDED, Starting on 06/25/22 at 0518, Until 07/05/22 at 1642, Mild Pain, Oral temp > 100.4 F Maximum dose of acetaminophen is 4000 mg from all sources in 24 hours. Start: 09-14-2020 End: 09-15-2020 take 1 tablet by mouth every four hours as needed 650 mg, Oral, Every 4 hours PRN, mild pain, fever 100.4 F or greater, headaches, Starting 09/14/20 at 2006 Comment on above: 2 tablets by ORAL/FE EDING TUBE route every 8 hours as needed for pain. acetaminophen 325 mg / HYDROcodone bitartrate 5 mg oral tablet (20 sources) Opioid Agonist Start: 4 End: 4 take 1 tablet by mouth every six hours as needed for pain [place] 325- 5 mg oral tablet Dose = 1 tab(s), Oral, q6h, PRN for pain, X 3 day(s), # 7 tab(s), 0 Refill(s), Pharmacy: [id number], Abdominal pain, 165, cm, 05/12/24 23:25:00 EDT, Height, 93, kg, 05/12/24 23:25:00 EDT, Dosing Weight Start Date: 05/16/24 Stop Date: 05/19/24 Status: Ordered Start: 11-03-2022 End: 07-24-2023 Hydrocodone-Acetaminophen 5- 325 mg tablet Discontinued 1 {tbl} PO EVERY 4 HOURS NEEDED as needed for Pain 10 2 November 03, 2022 July 24, 2023 12:32pm Abdominal pain Unspecified abdominal pain Start: 11-03-2022 End: 07-24-2023 take 1 tablet by mouth every four hours as needed Hydrocodone-Acetaminophen Discontinued 1 TABLET PO EVERY 4 HOURS NEEDED 10 November 03, 2022 July 24, 2023 12:32pm Start: 12-19-2021 take 1 tablet by ashish th every four hours as needed Hydrocodone-Acetaminophen Active 1 TABLE T PO EVERY 4 HOURS NEEDED 5 2 December 19, 2021 Start: 02-02-2021 End: 02-05-2021 Hydrocodone-Acetaminophen 1 TABLET tablet Discontinued 1 {tbl} PO EVERY 6 HOURS NEEDED as needed for Pain 10 3 0 February 02, 2021 February 04, 2021 12:00am February 05, 2021 12:04am Pyelonephritis Tubulo-interstitial nephritis, not specified as acute or chronic Start: 02-02-2021 End: 02-05-2021 take 1 tablet by mouth every six hours as needed Hydrocodone-Acetaminophen Discontinued 1 TABLET PO EVERY 6 HOURS NEEDED 10 3 February 02, 2021 February 05, 2021 12:04am Start: 07-21-2019 End: 07-21-2019 HYDROcodone-acetaminophen (N ORCO) 5-325 MG per tablet 2 tablet Start: 06-08-2019 End: 06-12-2019 Hydrocodone-Acetaminophen 1 TABLET tablet Discontinued 1 {tbl} PO EVERY 4 HOURS NEEDED as needed for Pain 10 2 0 June 08, 2019 June 09, 2019 12:00am June 12, 2019 12:06am Left ear pain Otalgia, left ear Start: 06-08-2019 End: 06-12-2019 take 1 tablet by mouth every four hours as needed Hydrocodone-Acetaminophen Discontinued 1 TABLET PO EVERY 4 HOURS NEEDED 10 2 June 08, 2019 June 12, 2019 12:06am take 1 tablet by ashish th every six hours as needed HYDROcodone-acetaminophen (NORCO) 5-325 mg per tablet Take 1 tablet by mouth every 6 (six) hours as needed for pain. 0 Active [id number] actuat albuterol 0.09 mg/actuat metered dose inhaler (20 sources) beta2-Adrenergic Agonist Start: 02-07-2023 take 2 puff(s) by inhalation every four hours as needed for wheezing albuterol HFA (PROAIR HFA) 90 mcg/actuation inhaler Inhale 2 Puffs as instructed every 4 hours as needed for wheezing/shortness of breath. 02/07/2023 Active Start: 08-09-2022 Albuterol Sulf ate (Ventolin Hfa) 90 mcg/actuation HFA aerosol inhaler Active 2 INH INHALATION Q4H August 09, 2022 12:00am Start: 04-15-2022 End: 02-07-2023 albuterol HFA (PROAIR HFA) 9 0 mcg/actuation inhaler [The details of the medication are not available because there are pending changes by a home health clinician.] 18 g 3 04/15/2022 02/07/2023 Discontinued Start: 04-15-2022 take 2 puff(s) by in halation every four hours as needed albuterol 108 (90 Base) MCG/ACT Aero Soln inhaler Inhale 2 puffs Every 4 hours as needed. 0 04/15/2022 Active Start: 09-09-2021 take 2.5 mg by inhal ation every four hours as needed for dyspnea and dyspnea albuterol (PROVENTIL) 2.5 mg /3 mL (0.083 %) nebulizer solution Indications: SOB (shortness of breath) Use 3 mL via nebulizer every 4 hours as needed for wheezing/shortness of breath. Use over 5-15minutes. 120 mL 1 09/09/2021 Active Start: 09-09-2021 albuterol (2.5 MG/3ML) 0.083% inhalation solution Inhale 2.5 mg Every 4 hours as needed. 0 09/09/2021 Active Start: 02-17-2021 End: 04-15-2022 take 2 puff(s) by inhalation every four hours as needed albuterol HFA (PROAIR HFA) 90 mcg/actuation inhaler Inhale 2 Puffs as instructed every 4 hours as needed. 18 g 3 02/17/2021 04/15/2022 Discontinued Start: 08-04-2020 End: 02-20-2025 Start: 08-04-2020 take 1 puff(s) by in halation every four hours as needed Albuterol Sulfate Active 1 - 2 PUFF INHALATION EVERY 4 HOURS NEEDED August 04, 2020 12:00am Comment on above: Inhale 2 Puffs as in structed every 4 hours as needed. Use 3 mL via nebuliz er every 4 hours as needed for wheezing/shortness of breath. Use over 5-15minutes. [The details of the medication are not available because there are pending changes by a home health clinician.] Inhale 2 Puffs as in structed every 4 hours as needed for wheezing/shortness of breath. Albuterol (Eqv-Ventolin HFA) 90 mcg/inh inhalation aerosol (1 source) Start: 07-20-20 24 take 1 dose by inhalation every six hours as needed for wheezing Albuterol (Eqv-Ventolin HFA) 90 mcg/inh inhalation aerosol Dose = 1 puff(s), Inhalation, q6hr, PRN as needed for wheezing, 0 Refill(s) Start Date: 05/11/24 Status: Ordered ALPRAZolam 0.5 mg oral tablet (20 sources) Benzodiazepine Start: 02-17-20 take 1 tablet by mouth every eight hours as needed for anxiety Start: 02-14-2025 End: 07-04-2025 take 1 tablet by mouth three times daily as needed for anxiety ALPRAZolam (XANAX) 0.5 mg tablet Indications: Panic disorder with agoraphobia , Chronic post-traumatic stress disorder (PTSD) Take 1 tablet by mouth three times a day as needed (anxiety and panic symptoms) for up to 30 days. 60 tablet 06/04/2025 07/04/2025 Active Start: 09-25-2024 End: 02-12-2025 take 1 tablet by mouth three times daily as needed for anxiety ALPRAZolam (XANAX) 0.5 mg tablet Indications: Panic disorder with agoraphobia , Chronic post-traumatic stress disorder (PTSD) Take 1 tablet by mouth three times a day as needed (anxiety and panic symptoms) for up to 30 days. 60 tablet 01/13/2025 02/12/2025 Active Start: 09-04-2024 End: 09-18-2024 take 1 tablet by mouth three times daily as needed for anxiety ALPRAZolam (XANAX) 0.5 mg tablet Indications: Panic disorder with agoraphobia , Chronic post-traumatic stress disorder (PTSD) Take 1 tablet by mouth three times a day as needed (anxiety and panic symptoms) for up to 14 days. 30 tablet 09/04/2024 09/18/2024 Active Start: 08-21-2024 End: 08-31-2024 take 1 tablet by mouth three times daily as needed for anxiety ALPRAZolam (XANAX) 0.5 mg tablet Indications: Panic disorder with agoraphobia , Chronic post-traumatic stress disorder (PTSD) Take 1 tablet by mouth three times a day as needed (anxiety and panic symptoms) for up to 10 days. 30 tablet 08/21/2024 08/31/2024 Active Start: 12-16-2021 take 1 tablet by ashish th three times daily Alprazolam (Xanax) 0.5 mg tablet Active 0.5 MG PO THREE TIMES A DAY December 16, 2021 1:00am Start: 11-12-2021 End: 11-15-2021 take 1 tablet by mouth twice daily as needed for anxiety Alprazolam 0.25 mg tablet Discontinued 0.25 mg PO TWICE A DAY as needed for anxiety 6 3 0 November 12, 2021 1:00am November 14, 2021 1:00am November 15, 2021 1:01am amitriptyline hydrochloride 25 mg oral tablet (20 sources) Tricyclic Antidepressant Start: 11-19-2021 End: 07-28-2022 take 25 mg by mouth at bedtime Amitriptyline Active 25 MG PO AT BEDTIME November 19, 2021 1:00am Start: 10-11-2021 End: 11-19-2021 take 1 tablet by mouth at bedtime Amitriptyline 10 mg tablet Discontinued 10 mg PO AT BEDTIME October 11, 2021 1:00am November 19, 2021 3:05pm Take one tablet at bedtime. Comment on above: Take 25 mg by mouth daily at bedtime. amoxicillin 500 mg oral capsule (3 sources) Penicillin-class Antibacterial Start: End: take 1 capsule by mouth every twelve hours amoxicillin (AMOXIL) 500 mg capsule Indications: Acute otitis media, right Take 1 capsule by mouth every 12 hours for 7 days. 14 capsule 12/18/2024 12/25/2024 Active Start: 02-09-2022 End: 02-16-2022 take 1 tablet by mouth twice daily amoxicillin (AMOXIL) 875 mg tablet Take 1 tablet by mouth twice daily for 7 days. 14 tablet 02/09/2022 02/16/2022 Comment on above: Take 1 tablet by ashish th twice daily for 7 days. atorvastatin 10 mg oral tablet (20 sources) HMG-CoA Reductase Inhibitor Start: 06-27-2023 End: 08-01-2024 take 1 tablet by mouth once daily Comment on above: Take 1 tablet by ashish th once daily. Blood-Glucose Meter (20 sources) Start: 09-02-2022 Blood-Glucose Meter Use to check blood sugar 3-4 times daily. 1 Each 1 09/02/2022 Suspended Start: 09-02-2022 Blood-Glucose Meter Use to check blood sugar 3-4 times daily. 1 Each 1 09/02/2022 Active Comment on above: Use to check blood s ugar 3-4 times daily. Blood-Glucose Sensor (FREESTYLE LUKE 3 SENSOR) eliseo (20 sources) Start: 12-16-2024 Blood-Glucose Sensor (FREESTYLE LUKE 3 SENSOR) eliseo 1 Each every 2 weeks. 2 Each 5 12/16/2024 Active Start: 10-02-2024 End: 12-16-2024 Blood-Glucose Sensor (FREEST YLE LUKE 3 SENSOR) eliseo 1 Each every 2 weeks. 2 Each 5 10/02/2024 12/16/2024 Discontinued Start: 10-02-2024 Blood-Glucose Sensor (FREESTYLE LUKE 3 SENSOR) eliseo 1 Each every 2 weeks. 2 Each 5 10/02/2024 Active Start: 12-21-2023 End: 10-02-2024 Blood-Glucose Sensor (FREEST YLE LUKE 3 SENSOR) eliseo 1 Each every 2 weeks. 2 Each 5 12/21/2023 10/02/2024 Discontinued Start: 12-21-2023 Blood-Glucose Sensor (FREESTYLE LUKE 3 SENSOR) eliseo 1 Each every 2 weeks. 2 Each 5 12/21/2023 Active Start: 09-22-2023 End: 12-21-2023 Blood-Glucose Sensor (FREEST YLE LUKE 3 SENSOR) eliseo 1 Each every 2 weeks. 2 Each 5 09/22/2023 12/21/2023 Discontinued Start: 09-22-2023 Blood-Glucose Sensor (FREESTYLE LUKE 3 SENSOR) eliseo 1 Each every 2 weeks. 2 Each 5 09/22/2023 Active Comment on above: 1 Each every 2 weeks . busPIRone hydrochloride 15 mg oral tablet (20 sources) Start: 04-19-2023 End: 05-19-2023 take 1 tablet by mouth twice daily busPIRone (BUSPAR) 15 mg tablet Indications: Anxiety with depression Take 1 tablet by mouth twice daily. 60 tablet 5 04/19/2023 05/19/2023 Active Start: 02-01-2023 End: 03-18-2023 take 1 tablet by mouth twice daily busPIRone (BUSPAR) 15 mg tablet Take 1 tablet by mouth twice daily. 60 tablet 5 02/16/2023 03/18/2023 Active Start: 12-02-2022 End: 12-02-2023 take 1 tablet by mouth three times daily busPIRone (BUSPAR) 7.5 mg tablet Indications: Reaction, adjustment, with anxious, depressed mood Take 1 tablet by mouth three times daily. 90 tablet 11 12/02/2022 02/01/2023 Discontinued Start: 08-09-2022 End: 02-16-2025 take 3 tablets by mouth three times daily Buspirone 5 mg tablet Discontinued 15 mg PO THREE TIMES A DAY August 09, 2022 12:00am February 16, 2025 7:41pm ANXIETY Start: 08-09-2022 take 15 mg by mouth three times daily Buspirone Active 15 MG PO THREE TIMES A DAY August 09, 2022 12:00am Start: 07-01-2022 End: 07-05-2022 busPIRone (BUSPAR) tablet 5 mg Start: 06-27-2022 End: 07-01-2022 busPIRone (BUSPAR) tablet 5 mg Start: 03-18-2022 End: 12-02-2022 take 1 tablet by mouth three times daily busPIRone (BUSPAR) 5 mg tablet Indications: Reaction, adjustment, with anxious, depressed mood Take 1 tablet by mouth three times daily. 90 tablet 2 07/21/2022 12/02/2022 Discontinued Comment on above: Take 1 tablet by ashish th three times daily. Take 1 tablet by ashish th twice daily. Calcium Carbonate / Ergocalciferol (1 source) Provitamin D2 Compound take 1 tablet by mouth twice daily calcium carbonate-vitam in D2 500 mg(1,250mg) -200 unit tablet Take 1 tablet by mouth 2 (two) times a day. 0 Active clomiPRAMINE hydrochloride 50 mg oral capsule (20 sources) Tricyclic Antidepressant Start: take 1 capsule by mouth twice daily Start: 07-24-2023 take 100 mg by mouth once steven y Clomipramine Active 100 MG PO DAILY July 24, 2023 12:00am Start: 02-23-2023 take 100 mg by mouth once steven y Clomipramine Active 100 MG PO DAILY February 23, 2023 12:00am Start: 02-23-2023 End: 02-20-2025 take 1 capsule by mouth once daily Clomipramine 75 mg capsule Discontinued 100 mg PO DAILY February 23, 2023 12:00am February 20, 2025 10:51am see pcp Start: 02-23-2023 take 100 mg by mouth once steven y Clomipramine Active 100 MG PO DAILY February 23, 2023 12:00am Start: 02-16-2023 End: 08-03-2025 take 2 capsules by mouth once daily at bedtime, then take 2 capsules by mouth once daily in the morning clomiPRAMINE (ANAFRANIL) 50 mg capsule Indications: Panic disorder with agoraphobia , Mixed obsessional thoughts and acts , Chronic post-traumatic stress disorder (PTSD) Take 2 capsules by mouth daily at bedtime AND 2 capsules every morning. 120 capsule 2 06/04/2025 08/03/2025 Active Start: 02-01-2023 End: 02-20-2025 take 1 capsule by mouth once daily Clomipramine 75 mg capsule Discontinued 100 mg PO DAILY February 23, 2023 12:00am February 20, 2025 10:51am see pcp Start: 12-26-2022 End: 02-08-2023 take 1 capsule by mouth once daily at bedtime, then take 2 capsules by mouth once daily at bedtime clomiPRAMINE (ANAFRANIL) 25 mg capsule Take 1 capsule by mouth daily at bedtime for 14 days, THEN 2 capsules daily at bedtime. 74 capsule 0 12/26/2022 02/01/2023 Discontinued Comment on above: Take 1 capsule by mo uth daily at bedtime for 14 days, THEN 2 capsules daily at bedtime. Take 1 capsule by mo uth daily at bedtime. Take 2 capsules by m outh daily at bedtime. Take 2 capsules by m outh daily at bedtime AND 1 capsule every morning. Take 2 capsules by m outh daily at bedtime AND 2 capsules every morning. dexamethasone 1.5 mg oral tablet (20 sources) Corticosteroid Start: 07-22-2025 Start: 07-22-2025 Start: 06-17-2025 End: 07-20-2025 Dexamethasone 1.5 mg tablet Discontinued 1.5 mg PO DAILY 18 0 June 17, 2025 12:00am July 20, 2025 2:50pm take 3 tablets daily for 3 days then 2 tablets daily for 3 days then 1 tablet daily for 3 days then resume regular dosing Start: 06-16-2025 take 1 tablet by ashish every twenty-four hours Start: 06-16-2025 take 2 tablets by mo [facility] every twenty-four hours Dexamethasone 0.75 mg tablet Active 1.5 mg PO Q24H June 16, 2025 12:00am Start: 06-13-2025 take 1 tablet by ashish twice daily at mealtime dexAMETHasone (DECADRON) 0.75 mg tablet Take 1 tablet by mouth two times a day with meals. 90 tablet 3 06/13/2025 Active Start: 02-20-2025 End: 06-16-2025 Dexamethasone 1.5 mg tablet Discontinued 0 .ROUTE .COMPLEX 60 30 0 February 20, 2025 12:00am June 16, 2025 4:29pm Please take as follows: 4 pills for 3 days, then 3 pills for 3 days, then 2 pills for 3 days, then 1 pill daily going forward. Start: 07-24-2023 End: 02-20-2025 take 1 tablet by mouth once daily Dexamethasone 0.5 mg tablet Discontinued 0.5 mg PO DAILY July 24, 2023 12:00am February 20, 2025 10:51am see pcp Start: 06-14-2023 End: 06-13-2025 take 1 tablet by mouth every six hours dexAMETHasone (DECADRON) 0.5 mg tablet Take 1 tablet by mouth every 6 hours. 90 tablet 3 09/11/2024 06/13/2025 Discontinued Start: 02-23-2023 End: 06-14-2023 take 1 tablet by mouth once daily at breakfast dexAMETHasone (DECADRON) 1 mg tablet Take 1 tablet by mouth daily with breakfast. 90 tablet 2 02/23/2023 06/14/2023 Discontinued Comment on above: Take 1 tablet by ashish daily with breakfast. Take 1 tablet by ashish th every 6 hours. empagliflozin 10 mg oral tablet (20 sources) Sodium-Glucose Cotransporter 2 Inhibitor Start: 02-16-2025 take 1 tablet by mouth once daily Start: 03-15-2024 End: 12-16-2024 take 1 tablet by mouth once daily at breakfast empagliflozin (JARDIANCE) 10 mg tablet Take 1 tablet by mouth daily with breakfast. 90 tablet 3 12/16/2024 Active Food Supplement, Lactose-Free (NUTRITIONAL DRINK) liqd (20 sources) Start: 11-02-2022 take 237 mL by mouth three times daily at mealtime Food Supplement, Lactose-Free (NUTRITIONAL DRINK) liqd Indications: Chronic gastritis without bleeding, unspecified gastritis type , Hyperemesis Take 237 mL by mouth three times daily with meals. [id number] mL 5 11/02/2022 Active Start: 11-02-2022 take 237 mL by mouth three times daily at mealtime Food Supplement, Lactose-Free (NUTRITIONAL DRINK) liqd Indications: Chronic gastritis without bleeding, unspecified gastritis type , Hyperemesis Take 237 mL by mouth three times daily with meals. [id number] mL 5 11/02/2022 Suspended Start: 11-02-2022 End: 05-01-2023 take 237 mL by mouth three times daily at mealtime Food Supplement, Lactose-Free (NUTRITIONAL DRINK) liqd Indications: Chronic gastritis without bleeding, unspecified gastritis type , Hyperemesis Take 237 mL by mouth three times daily with meals. [id number] mL 5 11/02/2022 05/01/2023 Active Comment on above: Take 237 mL by mouth three times daily with meals. Iron (1 source) iron 18 mg Tab Take by mouth . 0 Active isopropyl alcohol 0.7 ml/ml medicated pad (20 sources) Start: 07-28-2022 alcohol swabs 3x/d 300 Each 3 07/28/2022 Active Comment on above: 3x/d lamoTRIgine 100 mg oral tablet (20 sources) Mood Stabilizer, Anti-epileptic Agent Start: 01-01-2025 End: 08-03-2025 take 1 tablet by mouth once daily Start: 11-20-2024 End: 01-01-2025 take 1 tablet by mouth once daily, then take 2 tablets by mouth once daily, then take 3 tablets by mouth once daily lamoTRIgine (LAMICTAL) 25 mg tablet Take 1 tablet by mouth once daily for 14 days, THEN 2 tablets once daily for 14 days, THEN 3 tablets once daily for 14 days. 84 tablet 11/20/2024 01/01/2025 Discontinued (Course of therapy completed) levothyroxine sodium 0.125 mg oral tablet (20 sources) l-Thyroxine Start: 05-11-2024 levothyroxine 125 mcg (0.125 mg) oral tablet Dose : 125 mcg = 1 tab(s), Oral, qDay, 0 Refill(s) Start Date: 05/11/24 Status: Ordered Start: 11-16-2022 End: 12-16-2024 take 1 tablet by mouth once daily Start: 08-09-2022 End: 07-24-2023 Levothyroxine 137 mcg tablet Discontinued 125 ug PO DAILY August 09, 2022 12:00am July 24, 2023 12:28pm thyroid Start: 08-09-2022 End: 07-24-2023 take 125 ug by mouth once daily Levothyroxine Discontinued 125 MCG PO DAILY August 09, 2022 12:00am July 24, 2023 12:28pm Start: 07-02-2022 End: 07-05-2022 levothyroxine (SYNTHROID) ta blet 137.5 mcg Start: 06-26-2022 End: 07-01-2022 levothyroxine (SYNTHROID) ta blet 137.5 mcg Start: 01-04-2022 End: 11-16-2022 take 1 tablet by mouth once daily levothyroxine (LEVOXYL) 137 mcg tablet Take 1 tablet by mouth once daily. 90 tablet 3 01/04/2022 11/16/2022 Discontinued Start: 09-13-2021 End: 01-04-2022 take 1 tablet by mouth once daily levothyroxine (SYNTHROID) 112 mcg tablet Indications: [place]'s disease (HCC) Take 1 tablet by mouth once daily. 90 tablet 3 09/13/2021 01/04/2022 Discontinued Start: 09-15-2020 End: 10-15-2020 take 1 tablet by mouth once daily levothyroxine (SYNTHROID, LEVOTHROID) 75 MCG tablet Take 1 (one) tablet (75 mcg total) by mouth once daily . 30 tablet 0 09/15/2020 10/15/2020 Active Start: 09-15-2020 End: 09-15-2020 take 88 ug by mouth once daily 88 mcg, Oral, Daily, Fi rst dose on Tu09/15/20 at 0600 For patients on continuous tube feed: Hold TF from 1 hr before until 1 hr after each dose. TF rate may need adjustment to meet caloric needs. Start: 03-02-2020 take 112 ug by mouth once daily Levothyroxine Active 112 MCG PO DAILY@0600 March 02, 2020 2:50pm Start: 05-31-2018 End: 03-02-2020 take 1 tablet by mouth once daily Levothyroxine 88 MCG tablet Discontinued 88 ug PO DAILY@0600 30 May 31, 2018 12:00am March 02, 2020 2:50pm Comment on above: Take 1 tablet by ashish th once daily. Take 1 tablet by ashish th once daily. mon-mon and 1 1/2 tabs on monday lurasidone hydrochloride 60 mg oral tablet (20 sources) Atypical Antipsychotic Start: 02-14-2025 End: 07-04-2025 take 1 tablet by mouth once daily in the evening Start: 08-21-2024 End: 01-31-2025 take 1 tablet by mouth once daily at dinner lurasidone (LATUDA) 60 mg tablet Take 1 tablet by mouth daily with dinner. Take with 300 calories. 30 tablet 1 01/01/2025 Active Start: 07-11-2024 End: 08-21-2024 take 1 tablet by mouth once daily at dinner lurasidone (LATUDA) 40 mg tablet Take 1 tablet by mouth daily with dinner. Take with 300 calories. 30 tablet 1 07/11/2024 08/21/2024 Discontinued Start: 01-23-2024 End: 06-21-2024 take 1 tablet by mouth once daily at dinner lurasidone (LATUDA) 40 mg tablet Take 1 tablet by mouth daily with dinner. Take with 300 calories. 30 tablet 1 05/22/2024 06/21/2024 Active Start: 12-13-2023 End: 01-12-2024 take 1 tablet by mouth once daily lurasidone (LATUDA) 40 mg tablet Take 1 tablet by mouth once daily. Take with 300 calories. 30 tablet 0 12/13/2023 Active Start: 11-29-2023 End: 12-13-2023 take 1 tablet by mouth once daily lurasidone (LATUDA) 20 mg tablet Take 1 tablet by mouth once daily. Take with 300 calories. 30 tablet 0 11/29/2023 12/13/2023 Discontinued Comment on above: [facility] Take with 300 calories. metFORMIN hydrochloride 500 mg oral tablet (20 sources) Biguanide Start: 09-05-2022 take 500 mg by mouth once daily Metformin Active 500 MG PO DAILY September 05, 2022 1:00am Start: 08-23-2022 End: 12-16-2022 take 1 tablet by mouth once daily metFORMIN ER (GLUCOPHAGE XR) 500 mg 24 hr tablet Take 1 tablet by mouth once daily. 90 tablet 3 08/23/2022 12/16/2022 Discontinued Comment on above: [facility] naproxen 500 mg oral tablet (20 sources) Nonsteroidal Anti-inflammatory Drug Start: 09-05-2022 take 1 tablet by mouth twice daily Naproxen (Naprosyn) 500 mg tablet Active 500 MG PO TWICE A DAY September 05, 2022 12:00am Start: 10-06-2019 End: 10-11-2019 take 1 tablet by mouth twice daily Naproxen 500 MG tablet Discontinued 500 mg PO TWICE A DAY 10 5 0 October 06, 2019 1:00am October 10, 2019 1:00am October 11, 2019 1:10am nitrofurantoin, macrocrystals 25 mg / nitrofurantoin, monohydrate 75 mg oral capsule (1 source) Nitrofuran Antibacterial Start: 11-23-2023 End: 11-28-2023 take 1 capsule by mouth twice daily at mealtime nitrofurantoin monohydrate and macrocrystal (MACROBID) 100 mg capsule Take 1 capsule by mouth two times a day with meals for 5 days. 10 capsule 0 11/23/2023 11/28/2023 Active Comment on above: Take 1 capsule by mo [facility] two times a day with meals for 5 days. ondansetron 4 mg disintegrating oral tablet (20 sources) Serotonin-3 Receptor Antagonist Start: 07-20-2025 take 1 tablet by mouth three times daily as needed for nausea Start: 06-09-2023 End: 02-20-2025 take 1 tablet by mouth every six hours as needed for nausea and vomiting Ondansetron 4 mg tablet,disintegrating Discontinued 4 mg PO EVERY 6 HOURS as needed for nausea and vomiting December 10, 2024 1:00am May 1st, 2025 10:52am Start: 02-12-2023 End: 02-20-2025 take 1 tablet by mouth every eight hours as needed for nausea Ondansetron 4 mg tablet,disintegrating Discontinued 4 mg PO EVERY 8 HOURS NEEDED as needed for Nausea July 18, 2024 12:00am February 20, 2025 10:52am Start: 11-03-2022 End: 06-16-2025 take 2 tablets by mouth every eight hours as needed for nausea Ondansetron 4 mg tablet,disintegrating Discontinued 8 mg PO EVERY 8 HOURS NEEDED as needed for Nausea November 03, 2022 1:00am June 16, 2025 4:30pm Start: 11-03-2022 take 8 mg by mouth e very eight hours as needed Ondansetron Active 8 MG PO EVERY 8 HOURS NEEDED November 03, 2022 1:00am Start: 06-25-2022 End: 06-25-2022 ondansetron 4mg/2ml (ZOFRAN) injection 4 mg Start: 09-29-2021 take 4 mg by mouth e very eight hours Ondansetron Active 4 MG PO Q8H September 29, 2021 12:00am Start: 09-14-2020 End: 09-15-2020 take 4 mg intravenous route every six hours as needed 4 mg, Intravenous, Every 6 hours PRN, nausea, vomiting, Starting 09/14/20 at 2006 oseltamivir 75 mg oral capsule (3 sources) Neuraminidase Inhibitor Start: 10-05-2022 End: 10-10-2022 take 1 capsule by mouth twice daily oseltamivir (TAMIFLU) 75 mg capsule Indications: Flu-like symptoms Take 1 capsule by mouth twice daily for 5 days. 10 capsule 0 10/05/2022 10/10/2022 Active Comment on above: Take 1 capsule by mo [facility] twice daily for 5 days. oxyCODONE hydrochloride 5 mg oral tablet (20 sources) Opioid Agonist Start: 07-22-2025 take 1 tablet by mouth every eight hours as needed for pain Start: 07-22-2025 take 1 tablet by ashish every eight hours as needed for pain Start: 06-17-2025 End: 07-20-2025 take 1 tablet by mouth every four hours as needed for pain Oxycodone 5 mg Tablet Discontinued 5 mg PO EVERY 4 HOURS NEEDED as needed for Pain Score 4-10 10 3 0 June 17, 2025 July 20, 2025 2:50pm Epigastric pain Right lower quadrant abdominal pain Epigastric pain Right lower quadrant pain Start: 07-18-2024 End: 02-16-2025 take 1 tablet by mouth every six hours as needed for pain Oxycodone 5 mg tablet Discontinued 5 mg PO EVERY 6 HOURS as needed for pain 10 3 0 July 18, 2024 February 16, 2025 7:43pm Left flank pain Unspecified abdominal pain Start: 02-07-2023 End: 02-12-2023 take 1 tablet by mouth every six hours as needed oxyCODONE IR (ROXICODONE) 5 mg immediate release tablet Indications: RUQ pain Take 1 tablet by mouth every 6 hours as needed for up to 5 days. 20 tablet 0 02/07/2023 02/12/2023 Active Start: 10-29-2022 take 5 mg by mouth t hree times daily Oxycodone Active 5 MG PO THREE TIMES A DAY 9 October 29, 2022 Start: 08-19-2022 End: 08-26-2022 take 1 tablet by mouth every six hours as needed oxyCODONE IR (ROXICODONE) 5 mg immediate release tablet Indications: Right flank pain Take 1 tablet by mouth every 6 hours as needed for up to 7 days. 20 tablet 0 08/19/2022 08/26/2022 Active Start: 07-01-2022 End: 07-07-2022 take 1 tablet by mouth every eight hours as needed for pain oxyCODONE 5 MG tablet Indications: Abdominal pain due to injury Take 1 tablet by mouth every 8 hours as needed for Severe Pain for up to 10 doses. 10 tablet 0 07/05/2022 07/07/2022 Active Start: 06-28-2022 End: 07-01-2022 take 1 tablet nasogastric route every four hours as needed oxyCODONE (ROXICODONE) tablet 5 mg Start: 12-28-2020 End: 01-04-2021 take 1 tablet by mouth every six hours as needed for pain Oxycodone 5 MG tablet Discontinued 5 mg PO EVERY 6 HOURS NEEDED as needed for Pain Score 6-10 5 7 0 December 28, 2020 January 03, 2021 1:00am January 04, 2021 12:03am Other acute postprocedural pain Start: 08-14-2020 End: 08-21-2020 take 1 tablet by mouth every six hours as needed for pain Oxycodone 5 MG tablet Discontinued 5 mg PO EVERY 6 HOURS NEEDED as needed for Pain Score 4-10 30 7 0 August 14, 2020 August 20, 2020 12:00am August 21, 2020 12:03am Endometriosis of pelvic peritoneum Start: 03-02-2020 End: 03-09-2020 take 1 tablet by mouth every six hours as needed for pain Oxycodone 5 MG tablet Discontinued 5 mg PO EVERY 6 HOURS NEEDED as needed for Pain Score 6-10/10 10 7 0 March 02, 2020 March 08, 2020 12:00am March 09, 2020 12:02am Other acute postprocedural pain Comment on above: Take 1 tablet by ashish th every 6 hours as needed for up to 7 days. Take 1 tablet by ashish th every 6 hours as needed for up to 5 days. pantoprazole 40 mg delayed release oral tablet (20 sources) Proton Pump Inhibitor Start: 02-23-2023 End: 06-09-2026 take 1 tablet by mouth once daily Start: 11-23-2022 End: 01-20-2023 take 1 tablet by mouth once daily, then take 6 tablets by mouth in the morning pantoprazole DR (PROTONIX) 40 mg tablet Take 1 tablet by mouth DAILY (6 AM). 30 tablet 5 12/21/2022 Active Start: 06-25-2022 End: 07-05-2022 pantoprazole (PROTONIX) inje ction 40 mg Start: 11-12-2021 take 40 mg by mouth twice steven y Pantoprazole Active 40 MG PO TWICE A DAY November 12, 2021 1:00am Comment on above: Take 1 tablet by ashish th DAILY (6 AM). Take 1 tablet by ashish th daily at 6 am. potassium chloride 10 meq extended release oral tablet (4 sources) Start: 07-20-2025 take 1 tablet by mouth twice daily Start: 09-29-2021 take 20 mEq by mouth once steven y Potassium Chloride Active 20 MEQ PO DAILY September 29, 2021 1:00am prazosin 2 mg oral capsule (20 sources) alpha-Adrenergic Ev Start: 04-03-2024 End: 07-02-2024 prazosin 2 mg oral capsule Dose : 2 mg = 1 cap(s), Oral, qHS, 0 Refill(s) Start Date: 05/11/24 Status: Ordered Start: 02-15-2024 End: 03-16-2024 take 1 capsule by mouth once daily at bedtime prazosin (MINIPRESS) 2 mg cap Take 1 capsule by mouth daily at bedtime. 30 capsule 0 02/15/2024 03/16/2024 Active Start: 11-15-2023 End: 01-12-2024 take 1 capsule by mouth once daily at bedtime prazosin (MINIPRESS) 2 mg cap Take 1 capsule by mouth daily at bedtime. 30 capsule 0 12/13/2023 01/12/2024 Active Start: 09-20-2023 End: 10-20-2023 take 1 capsule by mouth once daily at bedtime prazosin (MINIPRESS) 1 mg cap Take 1 capsule by mouth daily at bedtime. 30 capsule 0 09/20/2023 10/20/2023 Active Start: 08-17-2023 End: 09-16-2023 take 1 capsule by mouth once daily at bedtime prazosin (MINIPRESS) 1 mg cap Take 1 capsule by mouth daily at bedtime. 30 capsule 0 08/17/2023 09/16/2023 Active Comment on above: Take 1 capsule by mo uth daily at bedtime. 21/IRON FU/FOLIC ACID ( COMPLETE ORAL) (1 source) 21/IRON FU/FOLIC ACID ( COMPLETE ORAL) Take by mouth. 0 Active Syringe with Needle, Disp, (BD TUBERCULIN SYRINGE) 1 mL 27 x 1/2" (20 sources) Start: 11-23-2022 Syringe with Needle, Disp, (BD TUBERCULIN SYRINGE) 1 mL 27 x 1/2" 1 Each three times daily. 300 Each 3 11/23/2022 Suspended Start: 11-23-2022 Syringe with N eedle, Disp, (BD TUBERCULIN SYRINGE) 1 mL 27 x 1/2" 1 Each three times daily. 300 Each 3 11/23/2022 Active Start: 07-28-2022 End: 11-22-2022 Syringe with Needle, Disp, ( BD TUBERCULIN SYRINGE) 1 mL 27 x 1/2" 1 Each three times daily. 300 Each 0 07/28/2022 11/22/2022 Discontinued Start: 07-28-2022 Syringe with N eedle, Disp, (BD TUBERCULIN SYRINGE) 1 mL 27 x 1/2" 1 Each three times daily. 300 Each 0 07/28/2022 Suspended Start: 07-28-2022 Syringe with N eedle, Disp, (BD TUBERCULIN SYRINGE) 1 mL 27 x 1/2" 1 Each three times daily. 300 Each 0 07/28/2022 Active Comment on above: 1 Each three times d aily. tiZANidine 4 mg oral tablet (20 sources) Central alpha-2 Adrenergic Agonist Start: 06-09-2025 take 1 tablet by mouth once daily tiZANidine (ZANAFLEX) 4 mg tablet Indications: Contusion of multiple sites of left shoulder and upper arm, subsequent encounter , Contusion of left hip, subsequent encounter Take 1 tablet by mouth once daily. 20 tablet 06/09/2025 Active Start: 02-01-2023 End: 06-09-2025 take 1 capsule by mouth three times daily as needed tiZANidine HCl (ZANAFLEX) 4 mg capsule Indications: Lumbar pain Take 1 capsule by mouth three times daily as needed. Hold flexeril while on meds 20 capsule 07/05/2023 06/09/2025 Discontinued Start: 08-09-2022 End: 07-20-2025 take 1 tablet by mouth every eight hours as needed for muscle spasms Tizanidine 4 mg tablet Discontinued 4 mg PO Q8H as needed for Spasms August 09, 2022 12:00am July 20, 2025 2:50pm Start: 03-15-2022 End: 07-21-2022 take 4 mg by mouth every eight hours Tizanidine Active 4 MG PO Q8H August 09, 2022 12:00am Comment on above: Take 1 tablet by ashish th every 8 hours as needed (muscle spasms). Take 1 capsule by mo uth three times daily as needed. Hold flexeril while on meds topiramate 25 mg oral tablet (20 sources) Start: 02-16-2025 End: 03-19-2026 take 1 tablet by mouth at bedtime Start: 11-22-2023 End: 11-21-2024 take 1 tablet by mouth at bedtime Topiramate 25 mg tablet Active 25 mg PO AT BEDTIME February 16, 2025 12:00am Start: 09-22-2020 End: 10-22-2020 take 1 tablet by mouth twice daily topiramate (TOPAMAX) 25 MG tablet Take 1 (one) tablet (25 mg total) by mouth 2 (two) times a day Start: 09/22/20. 60 tablet 0 09/22/2020 10/22/2020 Active Start: 09-15-2020 End: 09-15-2020 topiramate (TOPAMAX) tablet 25 mg Start: 09-15-2020 End: 10-15-2020 take 1 tablet by mouth once daily topiramate (TOPAMAX) 25 MG tablet Take 1 (one) tablet (25 mg total) by mouth nightly . 30 tablet 0 09/15/2020 10/15/2020 Active Comment on above: Take 1 tablet by ashish th daily at bedtime. traZODone hydrochloride 100 mg oral tablet (20 sources) Serotonin Reuptake Inhibitor Start: 06-27-2022 End: 07-05-2022 traZODone (DESYREL) tablet 100 mg Start: 08-31-2021 End: 09-14-2022 take 1 tablet by mouth once daily at bedtime traZODone (DESYREL) 100 mg tablet Indications: Reaction, adjustment, with anxious, depressed mood Take 1 tablet by mouth daily at bedtime. 30 tablet 5 03/18/2022 09/14/2022 take 1 tablet by ashish th once daily traZODone (DESYREL) 50 MG tablet Take 50 mg by mouth daily 0 Active Comment on above: Take 1 tablet by ashish th daily at bedtime. verapamil hydrochloride 120 mg oral tablet (1 source) Calcium Channel Ev take 1 tablet by mouth once daily verapamil (CALAN) 120 MG tablet Take 120 mg by mouth nightly 0 Active Completed/Discontinued Medications Medication Drug Class(es) Dates Sig (Normalized) Sig (Original) acarbose 25 mg oral tablet (20 sources) alpha-Glucosidase Inhibitor Start: 07-01-2022 End: 07-05-2022 acarbose (PRECOSE) tablet 25 mg Start: 06-26-2022 End: 07-01-2022 acarbose (PRECOSE) tablet 25 mg Start: 02-02-2022 End: 02-16-2025 take 1 tablet by mouth three times daily Acarbose 25 mg tablet Discontinued 25 mg PO THREE TIMES A DAY August 09, 2022 12:00am February 16, 2025 7:41pm sugar Comment on above: Take 1 tablet by ashish th three times daily. take 1 tablet by ashish th three times daily acetaminophen 325 mg / oxyCODONE hydrochloride 5 mg oral tablet (20 sources) Opioid Agonist Start: 0 End: 0 take 1-10 tablets by mouth every six hours as needed for pain Oxycodone-Acetaminoph en 1 EACH tablet Discontinued 1 NMA PO EVERY 6 HOURS as needed for Pain 1-10 Or Fever August 04, 2020 12:00am August 14, 2020 12:24pm Start: 08-04-2020 End: 08-14-2020 Oxycodone-Acetaminophen Disc ontinued 1 EACH PO EVERY 6 HOURS August 04, 2020 12:00am August 14, 2020 12:24pm Start: 12-09-2018 End: 12-12-2018 Oxycodone-Acetaminophen 1 TA BLET tablet Discontinued 1 {tbl} PO EVERY 6 HOURS NEEDED as needed for Pain 12 3 0 December 09, 2018 1:00am December 11, 2018 1:00am December 12, 2018 1:07am Flank pain Unspecified abdominal pain Start: 12-09-2018 End: 12-12-2018 take 1 tablet by mouth every six hours as needed Oxycodone-Acetaminophen Discontinued 1 TABLET PO EVERY 6 HOURS NEEDED 12 3 December 09, 2018 1:00am December 12, 2018 1:07am ARIPiprazole 5 mg oral tablet (20 sources) Atypical Antipsychotic Start: 11-29-2023 End: 12-29-2023 take 1 tablet by mouth once daily ARIPiprazole (ABILIFY) 5 mg tablet Take 1 tablet by mouth once daily. 45 tablet 0 11/29/2023 12/13/2023 Discontinued (Side Effects) Start: 11-22-2023 End: 12-22-2023 take 1.5 tablets by mouth once daily ARIPiprazole (ABILIFY) 5 mg tablet Take 1.5 tablets by mouth once daily. 45 tablet 0 11/22/2023 11/29/2023 Discontinued (Adjust Sig - Block E-Cancel) Start: 08-02-2023 End: 10-20-2023 take 1 tablet by mouth once daily ARIPiprazole (ABILIFY) 5 mg tablet Take 1 tablet by mouth once daily. 30 tablet 0 09/20/2023 10/20/2023 Active Start: 07-26-2023 End: 08-25-2023 take 1 tablet by mouth once daily ARIPiprazole (ABILIFY) 2 mg tablet Take 1 tablet by mouth once daily. 30 tablet 0 07/26/2023 08/02/2023 Discontinued Comment on above: Take 1 tablet by ashish once daily. Take 1.5 tablets by mouth once daily. azithromycin 250 mg oral tablet (20 sources) Macrolide Antimicrobial Start: End: take 1 tablet by mouth once daily Azithromycin 250 MG tablet Discontinued 250 mg PO DAILY July 03, 2014 12:00am July 05, 2014 1:06pm calcium carbonate 648 mg oral tablet (1 source) Start: End: calcium carbonate antacid tablet 648 mg calcium carbonate 1250 mg / cholecalciferol 200 unt oral tablet (1 source) Vitamin D Start: End: take 2 tablets by mouth once daily at breakfast 2 tablet, Oral, Daily with breakfast, First dose on Mon09/15/20 at 0800 cephalexin 500 mg oral capsule (6 sources) Cephalosporin Antibacterial Start: 023 End: 023 take 1 capsule by mouth twice daily cephALEXin (KEFLEX) 500 mg capsule Indications: Urinary frequency Take 1 capsule by mouth twice daily for 5 days. 10 capsule 0 04/13/2023 04/18/2023 Start: 09-10-2022 take 500 mg by mouth every twelve hours Cephalexin Active 500 MG PO EVERY 12 HOURS September 10, 2022 12:00am Start: 01-27-2022 End: 01-27-2022 cephALEXin 500 mg cap(s) (KE FLEX) Comment on above: Take 1 capsule by mo [facility] twice daily for 5 days. cyclobenzaprine hydrochloride 10 mg oral tablet (20 sources) Muscle Relaxant Start: 02-08-20 23 End: 02-17-20 25 take 1 tablet by mouth three times daily Cyclobenzaprine 10 mg tablet Discontinued 10 mg PO THREE TIMES A DAY February 23, 2023 12:00am February 16, 2025 7:42pm Start: 10-18-2022 End: 02-07-2023 cyclobenzaprine (FLEXERIL) 1 0 mg tablet Indications: Acute bilateral low back pain with left-sided sciatica [The details of the medication are not available because there are pending changes by a home health clinician.] 30 tablet 2 10/18/2022 02/07/2023 Discontinued Start: 10-18-2022 take 1 tablet by ashish th three times daily as needed cyclobenzaprine (FLEXERIL) 10 mg tablet Indications: Acute bilateral low back pain with left-sided sciatica Take 1 tablet by mouth three times daily as needed. 30 tablet 2 10/18/2022 Active Start: 08-19-2022 End: 08-26-2022 take 1 tablet by mouth three times daily cyclobenzaprine (FLEXERIL) 5 mg tablet Take 1 tablet by mouth three times daily for 7 days. 21 tablet 0 08/19/2022 08/26/2022 Active Start: 04-01-2021 End: 01-14-2022 take 1 tablet by mouth three times daily as needed cyclobenzaprine (FLEXERIL) 10 mg tablet Indications: Acute bilateral low back pain with left-sided sciatica Take 1 tablet by mouth three times daily as needed. 30 tablet 0 11/29/2021 12/28/2021 Discontinued Comment on above: Take 1 tablet by ashish th three times daily as needed. Take 1 tablet by ashish th three times daily for 7 days. [The details of the medication are not available because there are pending changes by a home health clinician.] Take 1 tablet by ashish th three times daily as needed for muscle spasm. dilTIAZem hydrochloride 30 mg oral tablet (20 sources) Calcium Channel Ev Start: 11-05-19 End: 11-12-19 take 1 tablet by mouth three times daily Diltiazem Hcl (Cardizem) 30 mg tablet Discontinued 30 mg PO THREE TIMES A DAY 30 0 November 05, 2021 1:00am November 12, 2021 3:57pm 1 ml diphenhydrAMINE hydrochloride 50 mg/ml cartridge (1 source) Histamine-1 Receptor Antagonist Start: 07-04-20 End: 07-04-20 diphenhydrAMINE (BENADRYL) injection eletriptan 40 mg oral tablet (20 sources) Serotonin-1b and Serotonin-1d Receptor Agonist Start: 09-20-20 take 20 mg by mouth every two hours Eletriptan Active 20 MG PO Q2H September 20, 2021 1:00am Start: 09-14-2021 End: 06-16-2025 take 1 tablet by mouth once daily Eletriptan 40 mg tablet Discontinued 40 mg PO DAILY August 09, 2022 12:00am June 16, 2025 4:30pm migraines Comment on above: At migraine onset. m ay repeat in 2 hours if necessary [The details of the medication are not available because there are pending changes by a home health clinician.] 0.4 ml enoxaparin sodium 100 mg/ml prefilled syringe (1 source) Low Molecular Weight Heparin Start: 09-15-20 End: 09-15-20 inject 40 mg by subcutaneous injection once daily 40 mg, Subcutaneous, Daily, First dose on Mon09/15/20 at 0800 Administer in abdomen unless otherwise directed by prescriber. Notify physician if patient refuses. Indication: VTE Prophylaxis Enoxaparin Sodium (LOVENOX) injection 40 mg (1 source) Start: 06-27-20 End: 07-05-20 Enoxaparin Sodium (LOVENOX) injection 40 mg 1 ml erenumab-aooe 70 mg/ml auto-injector (20 sources) Start: 03-11-20 End: 06-16-20 Erenumab-Aooe (Aimovig Autoinjector) 70 mg/mL auto-injector Discontinued 70 mg SC EVERY MONTH February 16, 2025 12:00am June 16, 2025 4:30pm see pcp Start: 07-22-2023 End: 08-21-2023 inject 1 mL by subcutaneous injection every month erenumab-aooe (AIMOVIG AUTOINJECTOR) 70 mg/mL auto-injector Indications: Migraine with aura, not intractable, without status migrainosus Inject 1 mL subcutaneously once every month. 1 mL 5 07/22/2023 08/21/2023 Comment on above: Inject 1 mL subcutan eously once every month. esomeprazole 40 mg delayed release oral capsule (20 sources) Proton Pump Inhibitor Start: 12-19-19 End: 07-24-20 take 1 capsule by mouth once daily Esomeprazole Magnesium (Nexium) 40 mg Capsule,Delayed Release(Dr/Ec) Discontinued 40 mg PO DAILY December 19, 2021 1:00am July 24, 2023 12:37pm GERD Start: 12-17-2021 End: 01-14-2022 take 1 capsule by mouth twice daily before mealtime, then take 1 capsule by mouth twice daily esomeprazole (NEXIUM) 40 mg capsule Take 1 capsule by mouth twice daily before meals. 1 po BID; 30" - 1 hr before breakast and before dinner 60 capsule 1 12/17/2021 01/14/2022 Discontinued Comment on above: Take 1 capsule by [facility] once daily. Take 1 capsule by [facility] twice daily before meals. 1 po BID; 30" - 1 hr before breakast and before dinner 168 hr estradiol 0.32886 mg/hr transdermal system (20 sources) Estrogen Start: apply 1 dose transdermal route every week estradiol 0.0375 MG/24HR Patch Weekly Place 1 patch on skin Once a week. 0 05/30/2022 Active Start: 04-01-2022 End: 02-16-2025 Estradiol 0.0375 mg/24 hr pa tch weekly Discontinued 0.0375 mg TD MO August 09, 2022 12:00am February 16, 2025 7:42pm HORMONES Start: 12-28-2020 End: 04-01-2022 take 2 mg by mouth once daily Estradiol Active 2 MG PO DAILY December 28, 2020 1:00am Comment on above: Take 2 mg by mouth o nce daily. Apply 1 Patch as dir ected one time a week. Take 1 tablet by ashish once daily. 2 ml fentaNYL 0.05 mg/ml injection (2 sources) Opioid Agonist Start: 07-04-20 End: 07-04-20 fentaNYL (SUBLIMAZE) injection fludrocortisone acetate 0.1 mg oral tablet (20 sources) Start: 09-13-20 End: 02-17-20 take 1 tablet by mouth once daily Fludrocortisone 0.1 mg tablet Discontinued 0.1 mg PO DAILY August 09, 2022 12:00am February 16, 2025 7:42pm ADDISONS Comment on above: Take 1 tablet by ashish once daily. FLUoxetine 20 mg oral capsule (20 sources) Serotonin Reuptake Inhibitor Start: 02-02-20 End: 03-03-20 take 1 capsule by mouth once daily FLUoxetine (PROZAC) 20 mg capsule Take 1 capsule by mouth once daily. 30 capsule 0 02/01/2023 02/07/2023 Discontinued Start: 07-02-2022 End: 07-05-2022 FLUoxetine (PROZAC) oral [place] ution 40 mg Start: 06-26-2022 End: 07-01-2022 FLUoxetine (PROZAC) oral [place] ution 40 mg Start: 02-07-2022 End: 02-01-2023 take 1 capsule by mouth once daily FLUoxetine (PROZAC) 40 mg capsule Indications: Reaction, adjustment, with anxious, depressed mood Take 1 capsule by mouth once daily. 30 capsule 5 03/18/2022 12/26/2022 Discontinued Start: 10-25-2021 take 1 capsule by [facility] once daily FLUoxetine HCl (PROZAC) 40 mg capsule Indications: Reaction, adjustment, with anxious, depressed mood Take 1 capsule by mouth once daily. 30 capsule 5 10/25/2021 Active Start: 09-20-2021 take 1 capsule by [facility] at bedtime Fluoxetine (Prozac) 20 mg Capsule Active 20 MG PO AT BEDTIME September 20, 2021 1:00am Comment on above: Take 1 capsule by mouth once daily. 1.5 ml fremanezumab-vfr m 150 mg/ml auto-injector (20 sources) Start: 2 End: 3 inject 1.5 mL by subcutaneous injection every month AJOVY AUTOINJECTOR 225 mg/1.5 mL auto-injector INJECT 1.5 ML SUBCUTANEOUSLY ONCE EVERY MONTH 1 Pen 5 01/06/2022 02/07/2023 Discontinued Start: 09-20-2021 End: 07-24-2023 Fremanezumab-Vfrm (Ajovy Aut oinjector) 225 mg/1.5 mL Auto-Injector Discontinued 225 mg SC EVERY MONTH September 20, 2021 1:00am October 2nd, 2023 12:37pm MIGRAINES Start: 08-26-2021 End: 01-04-2022 WALDOASHISH AUTOINJECTOR 225 mg/1. 5 mL auto-injector Comment on above: INJECT 1.5 ML SUBCUT ANEOUSLY ONCE EVERY MONTH gabapentin 100 mg oral capsule (20 sources) Anti-epileptic Agent Start: 05-15-2023 End: 12-10-2023 gabapentin (NEURONTIN) 100 mg capsule Indications: Adrenal insufficiency (Wabasso's disease) (HCC) , SLE (systemic lupus erythematosus related syndrome) (HCC) , Chronic pain syndrome One po q hs for one week, and then increase to BID. 60 capsule 2 05/15/2023 08/23/2023 Discontinued Start: 02-23-2023 End: 02-16-2025 take 1 capsule by mouth twice daily Gabapentin 100 mg capsule Discontinued 100 mg PO TWICE A DAY February 23, 2023 12:00am February 16, 2025 7:42pm Start: 01-12-2023 End: 03-14-2023 gabapentin (NEURONTIN) 100 m g capsule Indications: Adrenal insufficiency (Wabasso's disease) (HCC) , SLE (systemic lupus erythematosus related syndrome) (HCC) , Chronic pain syndrome One po q hs for one week, and then increase to BID. 60 capsule 2 01/12/2023 Suspended Start: 06-26-2022 End: 07-01-2022 gabapentin (NEURONTIN) capsu le 100 mg Start: 03-25-2022 End: 07-28-2022 take 1 capsule by mouth three times daily as needed gabapentin (NEURONTIN) 100 mg capsule Indications: Acute right-sided low back pain with right-sided sciatica Take 1 capsule by mouth three times daily as needed for up to 30 days. 90 capsule 0 03/25/2022 07/28/2022 Discontinued Start: 05-21-2021 End: 01-14-2022 take 1 capsule by mouth once daily at bedtime gabapentin (NEURONTIN) 300 mg capsule Take 1 capsule by mouth daily at bedtime for 90 days. 30 capsule 2 05/21/2021 01/14/2022 Discontinued Start: 09-14-2020 End: 09-15-2020 take 300 mg by mouth once daily 300 mg, Oral, Nightly, First dose on 09/14/20 at 2100 Comment on above: Take 1 capsule by mo uth daily at bedtime for 90 days. Take 1 capsule by [facility] three times daily as needed for up to 30 days. One po q hs for one week, and then increase to BID. GI Cocktail (1 source) Start: End: take 30 mL nasogastric route every six hours as needed GI Cocktail glimepiride 1 mg oral tablet (20 sources) Sulfonylurea Start: End: take 1 tablet by mouth once daily Glimepiride 1 mg tablet Discontinued 1 mg PO DAILY February 23, 2023 12:00am February 16, 2025 7:42pm Comment on above: Take 1 tablet by ashish once daily. [The details of the medication are not available because there are pending changes by a home health clinician.] Take 1 tablet by ashish th as directed. take if BG >160 0.2 ml glucagon 5 mg/ml auto-injector (20 sources) Antihypoglycemic Agent Start: End: Glucagon (Gvoke Hypopen 2-Pack) 1 mg/0.2 mL auto-injector Discontinued 1 mg SC DAILY NEEDED as needed for Hypoglycemia August 09, 2022 12:00am February 16, 2025 7:42pm Start: 02-02-2022 glucagon (GVOK E HYPOPEN 2-PACK) 1 mg/0.2 mL AutoInjector Inject 1 mg subcutaneously as needed. 0.4 mL 2 02/02/2022 Active Comment on above: Inject 1 mg subcutan eously as needed. 250 ml glucose 50 mg/ml / sodium chloride 9 mg/ml injection (1 source) Start: 06-25-2022 End: 07-05-2022 dextrose 5% and sodium chloride 0.9% IV solution hydrocortisone 100 mg injection (20 sources) Corticosteroid Start: 08-19-2022 End: 02-23-2023 hydrocortisone sodium succinate (SOLU-CORTEF) 100 mg injection [The details of the medication are not available because there are pending changes by a home health clinician.] 30 Each 3 08/19/2022 02/23/2023 Discontinued Start: 08-19-2022 hydrocortisone sodium succinate (SOLU-CORTEF) 100 mg injection 15 mg q am 7.5 mg 2p 7.5 mg 7 pm 30 Each 3 08/19/2022 Active Start: 07-28-2022 hydrocortisone sodium succinate (SOLU-CORTEF) 100 mg injection 15 mg q am 7.5 mg 2p 5 mg 7 pm 30 Each 3 07/28/2022 Suspended Start: 06-29-2022 End: 07-05-2022 hydrocortisone (CORTEF) tabl et 10 mg Start: 06-25-2022 End: 06-26-2022 hydrocortisone sodium succin ate PF (SOLU-CORTEF) injection 100 mg Start: 03-18-2022 End: 08-14-2022 hydrocortisone (CORTEF) 5 mg tablet Indications: Wabasso's disease (HCC) Take 10 mg in the morning, 10 mg in the afternoon, and 5 mg in the evening 150 tablet 11 03/18/2022 08/14/2022 Discontinued Start: 09-20-2021 Hydrocortisone (Cortef) 20 mg Tablet Active 15 MG PO DAILY September 20, 2021 1:00am Start: 09-14-2021 End: 02-16-2025 inject 100 mg by intramuscular injection three times daily Hydrocortisone Sod Succinate (Solu-Cortef) 100 mg recon soln Discontinued 5 - 15 mg IM THREE TIMES A DAY August 09, 2022 12:00am February 16, 2025 7:42pm ADDISONS Start: 08-09-2021 End: 01-18-2022 hydrocortisone (CORTEF) 5 mg tablet 3 tabs am 2 tab at dinner 450 tablet 3 08/09/2021 01/18/2022 Discontinued (Adjust Sig - Block E-Cancel) End: 08-14-2022 take 1 tablet by mouth once daily in the evening hydrocortisone (CORTEF) 5 mg tablet Take 5 mg by mouth DAILY AT 6 PM. 08/14/2022 Discontinued Comment on above: Inject 2 mL intramus cularly as needed. Take 10 mg by mouth daily after lunch. Take 5 mg by mouth D AILY AT 6 PM. Take 10 mg by mouth every morning. 3 tabs am 2 tab at d inner Take 10 mg in the mo rning, 10 mg in the afternoon, and 5 mg in the evening 15 mg q am 7.5 mg 2p 5 mg 7 pm 15 mg q am 7.5 mg 2p 7.5 mg 7 pm [The details of the medication are not available because there are pending changes by a home health clinician.] Hydrocortisone Sod Succinate (Solu-Cortef) 100 mg recon soln (3 sources) Start: 2021 End: 2024 inject 100 mg by intramuscular injection three times daily Hydrocortisone Sod Succinate (Solu-Cortef) 100 mg recon soln Discontinued 5 - 15 mg IM THREE TIMES A DAY August 09, 2022 12:00am February 16, 2025 7:42pm ADDISONS Start: 08-09-2022 End: 02-16-2025 inject 100 mg by intramuscular injection three times daily Hydrocortisone Sod Succinate (Solu-Cortef) 100 mg recon soln Discontinued 5 - 15 mg IM THREE TIMES A DAY August 09, 2022 12:00am February 16, 2025 7:42pm HYDROmorphone hydrochloride 2 mg oral tablet (9 sources) Opioid Agonist Start: 02-20-2025 End: 06-16-2025 take 1 tablet by mouth three times daily as needed for pain Hydromorphone 2 mg Tablet Discontinued 2 mg PO 3 TIMES DAILY NEEDED as needed for Pain Score 6-10 9 3 0 February 20, 2025 June 16, 2025 4:30pm Abdominal pain Acute adrenal insufficiency Epigastric pain Unspecified abdominal pain Unspecified adrenocortical insufficiency Epigastric pain Start: 07-04-2022 End: 07-03-2022 HYDROmorphone (DILAUDID) inj ection 0.5 mg Start: 07-01-2022 End: 07-01-2022 HYDROmorphone (DILAUDID) inj ection 0.5 mg Start: 06-25-2022 End: 07-05-2022 HYDROmorphone (DILAUDID) inj ection 0.5 mg hydroxychloroquine sulfate 200 mg oral tablet (20 sources) Antimalarial, Antirheumatic Agent Start: 07-22-2022 End: 02-16-2025 take 1 tablet by mouth twice daily Hydroxychloroquine 200 mg tablet Discontinued 200 mg PO TWICE A DAY August 09, 2022 12:00am February 16, 2025 7:42pm ARTHRITIS Start: 07-01-2022 End: 07-05-2022 hydroxychloroquine (PLAQUENI L) suspension 200 mg Start: 06-26-2022 End: 07-01-2022 hydroxychloroquine (PLAQUENI L) suspension 200 mg Start: 03-04-2022 End: 06-02-2022 take 1 tablet by mouth twice daily hydroxychloroquine 200 MG tablet Take 200 mg by mouth 2 times daily. 0 05/23/2022 Active Comment on above: Take 1 tablet by ashish th twice daily. Take 200 mg by mouth twice daily. hydrOXYzine hydrochloride 25 mg oral tablet (11 sources) Antihistamine Start: 08-13-20 End: 03-18-20 take 1 tablet by mouth three times daily as needed for anxiety hydrOXYzine HCl (ATARAX) 25 mg tablet Indications: DIOGO (generalized anxiety disorder) Take 1 tablet by mouth three times daily as needed for Anxiety. 30 tablet 1 08/13/2019 03/18/2022 Discontinued Comment on above: Take 1 tablet by ashish three times daily as needed for Anxiety. hyoscyamine sulfate 0.125 mg sublingual tablet (20 sources) Start: 02-15-20 End: 02-17-20 take 1 tablet by mouth three times daily as needed for pain Hyoscyamine Sulfate (Levsin/Sl) 0.125 mg tablet, sublingual Discontinued 0.125 mg PO THREE TIMES A DAY as needed for abdominal pain 10 February 14, 2023 12:00am February 16, 2025 7:37pm Start: 12-19-2021 take 1 tablet by ashish every four hours as needed Hyoscyamine Sulfate (Levsin) 0.125 mg Tablet Active 0.125 MG PO EVERY 4 HOURS NEEDED December 19, 2021 1:00am Start: 12-17-2021 End: 08-14-2022 take 0.125 mg under the tongue every four hours as needed hyoscyamine sublingual (LEVSIN/SL) 0.125 mg Dissolve 1 tablet under the tongue every 4 hours as needed. 120 tablet 2 12/17/2021 08/14/2022 Discontinued Comment on above: Dissolve 1 tablet un noah the tongue every 4 hours as needed. ibuprofen 200 mg oral tablet (20 sources) Nonsteroidal Anti-inflammatory Drug Start: 014 End: 014 take 1 tablet by mouth every six hours as needed for pain Ibuprofen 200 MG tablet Discontinued 200 mg PO EVERY 6 HOURS NEEDED as needed for Pain July 03, 2014 12:00am July 05, 2014 1:06pm Jevity 1.5 William/Fiber LIQD (1 source) Start: End: Jevity 1.5 William/Fiber LIQD 1 ml ketorolac tromethamine 15 mg/ml cartridge (1 source) Nonsteroidal Anti-inflammatory Drug, Cyclooxygenase Inhibitor Start: End: take 15 mg intravenously every six hours as needed ketorolac (TORADOL) injection 15 mg lacosamide 100 mg oral tablet (20 sources) Anti-epileptic Agent Start: End: take 1 tablet by mouth twice daily Lacosamide 100 mg tablet Discontinued 100 mg PO TWICE A DAY February 23, 2023 12:00am February 16, 2025 7:42pm Comment on above: Take 1 tablet by ashish twice daily for 30 days. Do not start before February 08, 2023. Take 1 tablet by ashish twice daily for 30 days. lidocaine hydrochloride 0.02 mg/mg topical gel (2 sources) Antiarrhythmic, Amide Local Anesthetic Start: End: lidocaine 2 % (XYLOCAINE) Start: 07-21-2019 End: 07-21-2019 lidocaine 1 % injection 5 mL LORazepam 1 mg oral tablet (20 sources) Benzodiazepine Start: 05-22-2024 End: 09-09-2024 take 1 tablet by mouth twice daily LORazepam (ATIVAN) 1 mg tablet Indications: Mixed obsessional thoughts and acts , Chronic post-traumatic stress disorder (PTSD) , Panic disorder with agoraphobia Take 1 tablet by mouth two times a day for 60 days. 60 tablet 1 07/11/2024 08/21/2024 Discontinued (Lack of Efficacy) Start: 05-11-2024 LORazepam 1 mg oral tablet Dose : 1 mg = 1 tab(s), Oral, BID, PRN as needed for anxiety, 0 Refill(s), 93 Start Date: 05/11/24 Status: Ordered Start: 04-03-2024 End: 05-03-2024 take 1 tablet by mouth twice daily as needed for anxiety LORazepam (ATIVAN) 1 mg tablet Indications: Mixed obsessional thoughts and acts , Panic disorder with agoraphobia , Chronic post-traumatic stress disorder (PTSD) Take 1 tablet by mouth two times a day as needed (anxiety and intrusive thoughts) for up to 30 days. 60 tablet 0 04/03/2024 05/03/2024 Active Start: 02-15-2024 End: 03-16-2024 take 1 tablet by mouth twice daily as needed for anxiety LORazepam (ATIVAN) 1 mg tablet Indications: Mixed obsessional thoughts and acts , Panic disorder with agoraphobia , Chronic post-traumatic stress disorder (PTSD) Take 1 tablet by mouth two times a day as needed (anxiety and intrusive thoughts) for up to 30 days. 60 tablet 0 02/15/2024 03/16/2024 Active Start: 11-22-2023 End: 01-12-2024 take 1 tablet by mouth twice daily as needed for anxiety LORazepam (ATIVAN) 1 mg tablet Indications: Mixed obsessional thoughts and acts , Panic disorder with agoraphobia , Chronic post-traumatic stress disorder (PTSD) Take 1 tablet by mouth two times a day as needed (anxiety and intrusive thoughts) for up to 30 days. 60 tablet 0 12/13/2023 01/12/2024 Active Start: 09-20-2023 End: 10-20-2023 take 1 tablet by mouth once daily as needed for anxiety LORazepam (ATIVAN) 1 mg tablet Indications: Mixed obsessional thoughts and acts , Panic disorder with agoraphobia , Chronic post-traumatic stress disorder (PTSD) Take 1 tablet by mouth once daily as needed (anxiety and intrusive thoughts) for up to 30 days. 30 tablet 0 09/20/2023 10/20/2023 Active Start: 07-26-2023 End: 08-31-2023 take 1 tablet by mouth once daily as needed for anxiety LORazepam (ATIVAN) 1 mg tablet Indications: Mixed obsessional thoughts and acts , Panic disorder with agoraphobia , Chronic post-traumatic stress disorder (PTSD) Take 1 tablet by mouth once daily as needed (anxiety and intrusive thoughts) for up to 14 days. 14 tablet 0 07/26/2023 08/02/2023 Discontinued Start: 07-12-2023 End: 02-16-2025 take 1 tablet by mouth once daily as needed for anxiety Lorazepam 0.5 mg tablet Discontinued 0.5 mg PO DAILY as needed for anxiety July 24, 2023 12:00am February 16, 2025 7:42pm Start: 06-08-2023 End: 07-08-2023 take 1 tablet by mouth once daily as needed LORazepam (ATIVAN) 0.5 mg Indications: Mixed obsessional thoughts and acts , Panic disorder with agoraphobia , Chronic post-traumatic stress disorder (PTSD) , Major depressive disorder, recurrent episode, moderate (HCC) Take 1 tablet by mouth once daily as needed for up to 30 days. 30 tablet 0 06/08/2023 07/08/2023 Active Start: 04-18-2023 End: 05-18-2023 take 1 tablet by mouth once daily as needed LORazepam (ATIVAN) 0.5 mg Indications: Mixed obsessional thoughts and acts , Panic disorder with agoraphobia , Chronic post-traumatic stress disorder (PTSD) , Major depressive disorder, recurrent episode, moderate (HCC) Take 1 tablet by mouth once daily as needed for up to 30 days. 30 tablet 0 04/18/2023 05/18/2023 Active Start: 02-01-2023 End: 04-02-2023 take 1 tablet by mouth once daily as needed LORazepam (ATIVAN) 0.5 mg Indications: Mixed obsessional thoughts and acts , Panic disorder with agoraphobia , Chronic post-traumatic stress disorder (PTSD) , Major depressive disorder, recurrent episode, moderate (HCC) Take 1 tablet by mouth once daily as needed for up to 30 days. Do not start before March 03, 2023. 30 tablet 0 03/03/2023 04/02/2023 Active Start: 12-26-2022 End: 01-25-2023 take 0.5 tablet by mouth twice daily as needed LORazepam (ATIVAN) 0.5 mg Indications: Mixed obsessional thoughts and acts , Panic disorder with agoraphobia , Chronic post-traumatic stress disorder (PTSD) , Major depressive disorder, recurrent episode, moderate (HCC) Take 0.5 tablets by mouth twice daily as needed for up to 30 days. 15 tablet 0 12/26/2022 01/25/2023 Active Start: 12-02-2021 End: 07-24-2023 take 1 tablet by mouth three times daily as needed for anxiety Lorazepam (Ativan) 1 mg tablet Discontinued 1 mg PO THREE TIMES A DAY as needed for anxiety 12 0 December 02, 2021 1:00am July 24, 2023 12:28pm Comment on above: Take 0.5 tablets by mouth twice daily as needed for up to 30 days. Take 1 tablet by ashish th once daily as needed for up to 30 days. Take 1 tablet by ashish th once daily as needed for up to 30 days. Do not start before March 03, 2023. Take 1 tablet by ashish once daily as needed (anxiety and intrusive thoughts) for up to 14 days. Take 1 tablet by ashish th once daily as needed (anxiety and intrusive thoughts) for up to 30 days. Take 1 tablet by ashish th two times a day as needed (anxiety and intrusive thoughts) for up to 30 days. magic mouthwash (standard) (1 source) Start: 2021 End: 2021 take 15 mL transmucosal route every six hours as needed magic mouthwash (standard) melatonin 3 mg oral tablet (1 source) Start: 2021 End: 2021 take 6 mg by mouth once daily at bedtime as needed 6 mg, Oral, DAILY AT BEDTIME NEEDED, Starting on 06/25/22 at 0518, Until 07/05/22 at 1642, Insomnia metoclopramide 5 mg oral tablet (6 sources) Dopamine-2 Receptor Antagonist Start: 2023 End: 2024 take 1 tablet by mouth every eight hours as needed for headache Metoclopramide Hcl (Reglan) 5 mg tablet Discontinued 5 mg PO EVERY 8 HOURS NEEDED as needed for headache 20 0 April 01, 2024 2:29pm February 16, 2025 7:37pm metroNIDAZOLE 500 mg oral tablet (1 source) Nitroimidazole Antimicrobial Start: 2019 End: 2019 take 1 tablet by mouth twice daily metroNIDAZOLE (FLAGYL) 500 MG tablet Take 500 mg by mouth 2 (two) times a day . 0 08/28/2020 09/15/2020 Discontinued (Stop Taking at Discharge) 2 ml midazolam 1 mg/ml injection (3 sources) Benzodiazepine Start: 2021 End: 2021 Midazolam HCl (PF) (VERSED) injection miSOPROStol 0.1 mg oral tablet (20 sources) Prostaglandin E1 Analog Start: 2020 End: 2021 take 8 ug by mouth once Misoprostol 100 mcg tablet Discontinued 100 ug PO .q8 52 0 September 21, 2021 1:00am November 12, 2021 3:57pm 1 ml morphine sulfate 2 mg/ml cartridge (1 source) Opioid Agonist Start: 2019 End: 2019 2 mg, Intravenous, Once, 09/14/20 at 2100, For 1 dose Start: 09-14-2020 End: 09-14-2020 2 mg, Intravenous, Once, 09/14/20 at 2100, For 1 dose naloxone hydrochloride 40 mg/ml nasal spray (20 sources) Opioid Antagonist Start: 07-24-2023 End: 06-16-2025 Naloxone 4 mg/actuation spray,non-aerosol Discontinued 1 NMA INTRANASAL NEEDED as needed for OVERDOSE July 24, 2023 12:00am June 16, 2025 4:30pm Start: 07-24-2023 Naloxone Activ e 1 SPRAY INTRANASAL NEEDED July 24, 2023 12:00am Start: 05-12-2023 End: 09-04-2023 naloxone 4 mg/actuation nasa l spray (NARCAN) Use 1 spray in one nostril as needed for overdose. May repeat every 2 to 3 min in alternating nostrils until medical assistance is available 2 Each 0 05/12/2023 09/04/2023 Discontinued Comment on above: Use 1 spray in one n ostril as needed for overdose. May repeat every 2 to 3 min in alternating nostrils until medical assistance is available naloxone (NARCAN) injection 0.1 mg (1 source) Start: 09-14-2020 End: 09-15-2020 naloxone (NARCAN) injection 0.1 mg Naloxone 4 mg/actuation spray,non-aerosol (3 sources) Start: 07-24-2023 End: 06-16-2025 Naloxone 4 mg/actuation spray,non-aerosol Discontinued 1 NMA INTRANASAL NEEDED as needed for OVERDOSE July 24, 2023 12:00am June 16, 2025 4:30pm Start: 07-24-2023 Naloxone 4 mg/ actuation spray,non-aerosol Active 1 NMA INTRANASAL NEEDED as needed for OVERDOSE July 24, 2023 12:00am nitroglycerin 0.3 mg sublingual tablet (20 sources) Nitrate Vasodilator Start: 12-11-2020 End: 07-24-2023 Nitroglycerin 0.3 mg tablet, sublingual Discontinued 0.3 mg SL Q5M as needed for cp December 11, 2020 1:00am July 24, 2023 12:37pm do not exceed 3 doses per episode Start: 12-11-2020 End: 07-24-2023 Nitroglycerin Discontinued 0 .3 MG SL Q5M December 11, 2020 1:00am July 24, 2023 12:37pm do not exceed 3 doses per episode Start: 02-21-2019 End: 07-28-2022 nitroglycerin sublingual (NI TROQUICK) 0.4 mg SL tablet Dissolve 1 tablet under the tongue as needed. FOR CHEST PAIN. IF NO RELIEF CALL 911 1 Bottle of 25 3 02/21/2019 07/28/2022 Discontinued Comment on above: Dissolve 1 tablet un noah the tongue as needed. FOR CHEST PAIN. IF NO RELIEF CALL 911 omeprazole 40 mg delayed release oral capsule (20 sources) Proton Pump Inhibitor Start: 2021 End: 2021 take 1 capsule by mouth once daily Omeprazole 40 mg capsule,delayed release(DR/EC) Discontinued 40 mg PO DAILY 90 3 November 19, 2021 1:00am November 19, 2021 2:35pm ondansetron 4mg/2ml (ZOFRAN) injection 4 mg (1 source) Start: 2021 End: 2021 take 4 mg intravenously every six hours as needed ondansetron 4mg/2ml (ZOFRAN) injection 4 mg oxybutynin chloride 5 mg oral tablet (20 sources) Cholinergic Muscarinic Antagonist Start: 2021 End: 2024 take 1 tablet by mouth three times daily Oxybutynin Chloride 5 mg tablet Discontinued 5 mg PO THREE TIMES A DAY February 23, 2023 12:00am February 16, 2025 7:42pm Comment on above: Take 1 tablet by ashish th three times daily. Take 1 tablet by ashish th three times daily as needed. perflutren lipid microspheres (DEFINVigilix) 0.143 mg/mL solution 0-10 mL of mixture (1 source) Start: 2019 End: 2019 0-10 mL of mixture, Intravenous, Once in imaging, contrast, IF suboptimal echo, Starting 09/14/20 at 2008, For 48 hours Prepare syringe by withdrawing 1.3 mL of perflutren (DEFINITY) from the 2ml vial. Further dilute the 1.3 mL of perflutren with Sodium Chloride (NS) 0.9% to total volume of 10 ml. Chart total "ML OF MIXTURE" given to patient. phenazopyridine hydrochloride 200 mg oral tablet (7 sources) Start: 2022 End: 2022 take 1 tablet by mouth three times daily as needed phenazopyridine (PYRIDIUM) 200 mg tablet Indications: Urinary frequency Take 1 tablet by mouth three times daily as needed for up to 3 days. 9 tablet 0 04/13/2023 04/16/2023 Start: 09-06-2022 take 1 tablet by ashish th three times daily Phenazopyridine (Pyridium) 200 mg tablet Active 200 MG PO THREE TIMES A DAY 6 September 06, 2022 12:00am Comment on above: Take 1 tablet by ashish th three times daily as needed for up to 3 days. phenol 14 mg/ml mouthwash (1 source) Start: 06-30-2022 End: 07-05-2022 phenol (CHLORASEPTIC) 1.4 % oral spray 2 spray polyethylene glycol 3350 38003 mg powder for oral solution (20 sources) Osmotic Laxative Start: 07-24-2023 End: 02-16-2025 take 17 g by mouth once daily Polyethylene Glycol 3350 17 gram/dose powder Discontinued 17 g PO DAILY July 24, 2023 12:00am February 16, 2025 7:43pm Start: 06-14-2023 End: 06-13-2024 polyethylene glycol 3350 (LA XATIVE PEG 3350) 17 gram/dose powder Indications: Chronic constipation Take 17 g by mouth once daily. Dissolve dose in 4 - 8 ounces of liquid and take as directed. 510 g 11 06/14/2023 11/22/2023 Discontinued Comment on above: Take 17 g by mouth o nce daily. Dissolve dose in 4 - 8 ounces of liquid and take as directed. polyethylene glycol 3350 084324 mg / potassium chloride 2970 mg / sodium bicarbonate 6740 mg / sodium chloride 5860 mg / sodium sulfate 75627 mg powder for oral solution (20 sources) Osmotic Laxative Start: 11-18-2022 End: 02-07-2023 peg 3350-Electrolytes (GOLYTELY) 236-22.74-6.74 -5.86 gram suspension Refer to printed patient instructions that will be mailed to you. 4000 mL 0 11/18/2022 02/07/2023 Discontinued (Course of therapy completed) Start: 09-14-2022 End: 09-14-2022 peg 3350-Electrolytes (GOLYT DELGADO) 236-22.74-6.74 -5.86 gram suspension Indications: Diarrhea, unspecified type Take 4,000 mL by mouth one time only for 1 dose. Refer to printed prep instructions from your provider. 4000 mL 0 09/14/2022 09/14/2022 Active Start: 08-01-2022 End: 08-01-2022 peg 3350-Electrolytes (GOLYT DELGADO) 236-22.74-6.74 -5.86 gram suspension Take 4,000 mL by mouth one time only for 1 dose. Refer to printed prep instructions from your provider. 4000 mL 0 08/01/2022 08/01/2022 Active Comment on above: Take 4,000 mL by ashish th one time only for 1 dose. Refer to printed prep instructions from your provider. Refer to printed pat ient instructions that will be mailed to you. potassium bicarbonate 20 meq effervescent oral tablet (2 sources) Start: 06-27-20 End: 06-28-20 Potassium Bicarb-Citric Acid (Effer-K) 20 MEQ effervescent tablets for oral solution 40 mEq predniSONE 10 mg oral tablet (20 sources) Start: 07-03-20 14 End: 07-05-20 14 take 4 tablets by mouth once daily Prednisone 10 MG tablet Discontinued 40 mg PO DAILY July 03, 2014 12:00am July 05, 2014 1:06pm Start: 07-03-2014 End: 07-05-2014 take 40 mg by mouth once daily Prednisone Discontinued 40 MG PO DAILY July 03, 2014 12:00am July 05, 2014 1:06pm promethazine hydrochloride 25 mg oral tablet (20 sources) Phenothiazine Start: 02-23-2023 End: 08-25-2025 take 1 tablet by mouth every six hours as needed for nausea Promethazine 25 mg tablet Discontinued 25 mg PO EVERY 6 HOURS NEEDED as needed for Nausea February 23, 2023 12:00am June 16, 2025 4:30pm Start: 07-14-2022 End: 02-07-2023 take 1 tablet by mouth every six hours as needed for nausea promethazine (PHENERGAN) 25 mg tablet Indications: Hyperemesis Take 1 tablet by mouth every 6 hours as needed for nausea/vomiting. 02/07/2023 Active Start: 06-25-2022 End: 07-05-2022 take 6.25 mg intravenously every eight hours as needed promethazine (PHENERGAN) injection 6.25 mg Start: 12-21-2021 Promethazine A ctive 25 MG RC EVERY 6 HOURS December 21, 2021 1:00am Start: 09-14-2020 End: 09-14-2020 take 25 mg by mouth once 25 mg, Oral, Once, Mon 09/14 at 2100, For 1 dose Comment on above: Take 1 tablet by ashish th every 6 hours as needed. [The details of the medication are not available because there are pending changes by a home health clinician.] Take 1 tablet by ashish th every 6 hours as needed for nausea/vomiting. rizatriptan 10 mg oral tablet (20 sources) Serotonin-1b and Serotonin-1d Receptor Agonist Start: 04-20-2021 End: 01-14-2022 rizatriptan (MAXALT) 10 mg tablet Indications: Migraine with aura, not intractable, without status migrainosus Take at migraine onset.May repeat 2 hrs later if needed. 12 tablet 5 04/20/2021 01/14/2022 Discontinued Start: 08-04-2020 End: 12-11-2020 Rizatriptan 10 MG tablet Dis continued 10 mg PO NEEDED as needed for migraines August 04, 2020 12:00am December 11, 2020 2:50pm Comment on above: Take at migraine ons et.May repeat 2 hrs later if needed. 72 hr scopolamine 0.0139 mg/hr transdermal system (20 sources) Anticholinergic Start: 07-24-2023 End: 02-16-2025 Scopolamine Base 1 mg over 3 days patch 3 day Discontinued 1 NMA TOPICAL Q72H July 24, 2023 12:00am February 16, 2025 7:43pm Start: 07-24-2023 Scopolamine Ba se Active 1 PATCH TOPICAL Q72H July 24, 2023 12:00am Start: 07-05-2022 scopolamine 1. 5 mg/72 [address] 1 patch on skin every 72 hours. 10 patch 1 07/05/2022 Active Start: 06-26-2022 End: 11-22-2023 scopolamine (TRANSDERM-SCOP) patch 1.5 mg/72 hr (delivers 1 mg over 3 days) Apply 1 Patch as directed every 72 hours. As needed for nausea 0 07/05/2022 11/22/2023 Discontinued Comment on above: Apply 1 Patch as dir ected every 72 hours. Apply 1 Patch as dir ected every 72 hours. As needed [The details of the medication are not available because there are pending changes by a home health clinician.] Apply 1 Patch as dir ected every 72 hours. As needed for nausea sertraline 50 mg oral tablet (20 sources) Serotonin Reuptake Inhibitor Start: 3 End: 5 take 1 tablet by mouth once daily Sertraline 50 mg tablet Discontinued 50 mg PO DAILY July 24, 2023 12:00am February 16, 2025 7:43pm Start: 09-14-2020 End: 09-15-2020 take 25 mg by mouth once daily 25 mg, Oral, Daily, Fir st dose on 09/14/20 at 2130 take 1 tablet by ashish th once daily sertraline (ZOLOFT) 25 MG tablet Take 25 mg by mouth daily . 0 Active Comment on above: Take 1 tablet by ashish th once daily. Take 1/2 tab once a day orally for one week then 1 tab once a day SITagliptin 100 mg oral tablet (20 sources) Dipeptidyl Peptidase 4 Inhibitor Start: 3 End: 5 take 1 tablet by mouth once daily Sitagliptin Phosphate (Januvia) 100 mg tablet Discontinued 100 mg PO DAILY February 23, 2023 12:00am February 16, 2025 7:43pm Comment on above: Take 1 tablet by ashish once daily. 1000 ml sodium chloride 9 mg/ml injection (1 source) Start: 2 End: 2 Intravenous, at 20 mL/hr, NEEDED, Starting on 06/25/22 at 0518, Until 07/05/22 at 1642, Carrier Fluid - See Admin. Inst 250mL 0.9NS to be used as carrier fluid for intermittent small volume or piggyback medication administration as needed. Infusion rate of the carrier fluid should be set at 20 mL/hr unless the rate as the intermittent medication is less than 20 mL/hr. For intermittent medications with a rate less than 20 mL/hr set the carrier fluid at that rate of the intermittent or piggy back medication. sucralfate 100 mg/ml oral suspension (20 sources) Aluminum Complex Start: 4 End: 5 take 10 mL by mouth at bedtime sucralfate (CARAFATE) 100 mg/mL suspension Take 10 mL by mouth before meals and at bedtime. (560cc=2wks) 1200 mL 5 05/27/2024 11/23/2024 Start: 02-23-2023 End: 02-16-2025 take 1 g by mouth twice daily Sucralfate 100 mg/mL agustin pension Discontinued 1 g PO TWICE A DAY February 23, 2023 12:00am February 16, 2025 7:43pm Start: 02-23-2023 take 1 g by mouth twice daily Sucralfate Active 1 GM PO TWICE A DAY February 23, 2023 12:00am Start: 11-22-2022 End: 01-20-2023 take 10 mL by mouth twice daily sucralfate (CARAFATE) 100 mg/mL suspension Take 10 mL by mouth twice daily. 600 mL 5 12/21/2022 01/20/2023 Active Start: 07-02-2022 End: 07-05-2022 sucralfate (CARAFATE) oral suspension 1,000 mg Start: 11-05-2021 take 1 mL by mouth o nce daily at mealtime Sucralfate (Carafate) 100 mg/mL suspension Active 10 ML PO THREE TIMES A DAY November 05, 2021 9:00am Take one hour prior to meals on an empty stomach. Start: 10-11-2021 End: 11-05-2021 take 1 mL by mouth once at mealtime Sucralfate (Carafate) 100 mg/mL suspension Discontinued 10 mL PO before meals 1000 2 October 11, 2021 1:00am November 05, 2021 9:58am Take one hour prior to meals on an empty stomach. Start: 10-11-2021 End: 11-05-2021 take 1 mL by mouth once at mealtime Sucralfate (Carafate) 100 mg/mL suspension Discontinued 10 ML PO before meals 999October 11, 2021 1:00am November 05, 2021 9:58am Take one hour prior to meals on an empty stomach. Comment on above: Take 10 mL by mouth twice daily. Take 1 g by mouth tw ice daily. sulfamethoxazole 800 mg / trimethoprim 160 mg oral tablet (20 sources) Dihydrofolate Reductase Inhibitor Antibacterial, Sulfonamide Antimicrobial Start: 09-05-20 End: 11-18-19 take 1 tablet by mouth twice daily sulfamethoxazole-tr imethoprim (BACTRIM DS,SEPTRA DS) 800-160 mg per tablet Take 1 tablet by mouth twice daily. 0 09/05/2022 11/18/2022 Discontinued (Erroneous entry) Comment on above: Take 1 tablet by ashish twice daily. SUMAtriptan 25 mg oral tablet (1 source) Serotonin-1b and Serotonin-1d Receptor Agonist Start: 09-14-20 End: 09-15-20 20 50 mg, Oral, As needed, migraine, Starting 09/14/20 at 2003 thiamine 100 mg oral tablet (2 sources) Start: 07-02-20 End: 07-05-20 thiamine tablet 100 mg Start: 06-26-2022 End: 07-01-2022 thiamine tablet 100 mg Tirzepatide (2 sources) Start: 02-16-2025 End: 06-16-2025 Tirzepatide (Mounjaro) 2.5 mg/0.5 mL pen injector Discontinued 2.5 mg SC EVERY WEEK February 16, 2025 12:00am June 16, 2025 4:31pm see PCP for 4 weeks tirzepatide (MOUNJARO) 2.5 mg/0.5 mL pen injector (20 sources) Start: 03-15-2024 End: 06-09-2025 inject 2.5 mg by subcutaneous injection every week tirzepatide (MOUNJARO) 2.5 mg/0.5 mL pen injector Inject 2.5 mg subcutaneously one time a week. 4 Each 1 03/15/2024 06/09/2025 Discontinued (Cost of medication) Start: 03-15-2024 inject 2.5 mg by sub cutaneous injection every week tirzepatide (MOUNJARO) 2.5 mg/0.5 mL pen injector Inject 2.5 mg subcutaneously one time a week. 4 Each 1 03/15/2024 Active Tirzepatide (Mounjaro) 2.5 mg/0.5 mL pen injector (3 sources) Start: 02-16-2025 End: 06-16-2025 Tirzepatide (Mounjaro) 2.5 mg/0.5 mL pen injector Discontinued 2.5 mg SC EVERY WEEK February 16, 2025 12:00am June 16, 2025 4:31pm see PCP for 4 weeks Start: 02-16-2025 Tirzepatide (M ounjaro) 2.5 mg/0.5 mL pen injector Active 2.5 mg SC EVERY WEEK February 16, 2025 12:00am for 4 weeks traMADol hydrochloride 50 mg oral tablet (7 sources) Opioid Agonist Start: 11-22-2022 End: 11-25-2022 take 1 tablet by mouth twice daily traMADol (ULTRAM) 50 mg tablet Indications: Generalized abdominal pain Take 1 tablet by mouth twice daily for 3 days. 6 tablet 0 11/22/2022 11/25/2022 Start: 06-25-2022 End: 06-28-2022 take 1 tablet nasogastric route every eight hours as needed traMADol (ULTRAM) tablet 50 mg Comment on above: Take 1 tablet by ashish th twice daily for 3 days. trospium chloride 20 mg oral tablet (8 sources) Cholinergic Muscarinic Antagonist Start: 2 End: 2 take 1 tablet by mouth twice daily before mealtime trospium (SANCTURA) 20 mg tablet Take 1 tablet by mouth twice daily before meals. 60 tablet 1 08/19/2022 09/06/2022 Discontinued Comment on above: Take 1 tablet by ashish th twice daily before meals. divalproex sodium 250 mg delayed release oral tablet (20 sources) Mood Stabilizer, Anti-epileptic Agent Start: 2 End: 2 valproate (DEPAKENE) solution 250 mg Start: 06-26-2022 End: 07-01-2022 valproate (DEPAKENE) solutio n 250 mg Start: 12-17-2021 End: 02-07-2023 take 1 tablet by mouth once daily in the morning, then take 2 tablets by mouth once daily in the evening divalproex DR (DEPAKOTE) 250 mg EC tablet Take 1 tablet by mouth every morning AND 2 tablets every evening. 270 tablet 1 12/17/2021 09/17/2022 Discontinued Start: 12-11-2020 take 750 mg by mouth at bedtim e Divalproex Active 750 MG PO AT BEDTIME December 11, 2020 1:00am Comment on above: Take 1 tablet by ashish th every morning AND 2 tablets every evening. Problems Active Problems Problem Classification Problem Date Documented Da te Episodic/Chronic Abdominal pain (20 sources) Epigastric pain; Translations: [Epigastric pain] Onset: 06-27-2017 Resolved: 07-20-2021 12-22-2021 Episodic Adjustment disorders (6 sources) Adjustment disorder with mixed anxiety and depressed mood; Translations: [Adjustment disorder with mixed anxiety and depressed mood] Chronic Anxiety disorders (20 sources) Mixed anxiety and depressive disorder; Translations: [Other specified anxiety disorders] Onset: 09-13-2021 01-18-2022 Chronic Asthma (20 sources) Asthma; Translations: [Unspecified asthma, uncomplicated] Onset: 06-27-2017 06-27-2017 Chronic Cardiac dysrhythmias (7 sources) Tachycardia; Translations: [Tachycardia, unspecified] Episodic Complication of device; implant or graft (16 sources) Complication of urinary catheter; Translations: [Unspecified complication of genitourinary prosthetic device, implant and graft, initial encounter] 09-16-2022 Episodic Complications of surgical procedures or medical care (20 sources) Postoperative hypothyroidism; Translations: [Postprocedural hypothyroidism] Onset: 05-30-2016 01-18-2022 Chronic Complications of surgical procedures or medical care (1 source) Drug therapy finding; Translations: [Unspecified adverse effect of drug or medicament, initial encounter] 05-01-2024 Episodic Conditions associated with dizziness or vertigo (20 sources) Vertigo; Translations: [Dizziness and giddiness] Onset: 09-13-2021 09-13-2021 Episodic Deficiency and other anemia (1 source) Anemia; Translations: [Anemia, unspecified] 2025 Episodic Diabetes mellitus with complications (9 sources) Type 2 diabetes mellitus; Translations: [Type 2 diabetes mellitus with hypoglycemia without coma] Onset: 06-09-2025 03-15-2024 Chronic Diabetes mellitus without complication (19 sources) Type 2 diabetes mellitus without complication; Translations: [Type 2 diabetes mellitus without complications] Chronic Comment on above: HYPOGLYCEMIA/SLADE S AND GRAVES DISEASE Diseases of mouth; excluding dental (2 sources) Recurrent ulcer of mouth; Translations: [Other lesions of oral mucosa] Episodic E Codes: Fall (13 sources) Fall; Translations: [Unspecified fall, initial encounter] 11-08-2022 Episodic Endometriosis (20 sources) Endometriosis (clinical); Translations: [Endometriosis, unspecified] Onset: 09-13-2021 01-18-2022 Chronic Epilepsy; convulsions (15 sources) Seizure disorder; Translations: [Epilepsy, unspecified, not intractable, without status epilepticus] 02-05-2023 Chronic Esophageal disorders (20 sources) Gastro-esophageal reflux disease without esophagitis; Translations: [Lower esophageal ring] Onset: 06-28-2017 01-18-2022 Chronic distress and abnormal forces of labor (20 sources) Arrested active phase of labor; Translations: [Secondary uterine inertia] 09-10-2019 Episodic Fluid and electrolyte disorders (20 sources) Acute hypokalemia; Translations: [Hypokalemia] Episodic Gastritis and duodenitis (20 sources) Chronic gastritis; Translations: [Unspecified chronic gastritis without bleeding] Onset: 09-23-2021 09-23-2021 Chronic Gastritis and duodenitis (2 sources) Gastritis; Translations: [Gastritis, unspecified, without bleeding] Episodic Genitourinary symptoms and ill-defined conditions (17 sources) Urge incontinence of urine; Translations: [Urge incontinence] Chronic Genitourinary symptoms and ill-defined conditions (20 sources) Blood in urine; Translations: [Hematuria, unspecified] Onset: 01-15-2022 01-18-2022 Episodic Headache; including migraine (20 sources) Migraine variant with headache; Translations: [Migraine] Onset: 09-14-2020 09-14-2020 Chronic Headache; including migraine (20 sources) Headache; Translations: [Headache] 01-21-2022 Episodic Hepatitis (1 source) Acute hepatitis; Translations: [Acute viral hepatitis, unspecified] 05-18-2023 Episodic Mood disorders (20 sources) Recurrent major depression in partial remission; Translations: [Major depressive disorder, recurrent, in partial remission] Onset: 03-21-2021 Resolved: 06-09-2025 01-15-2022 Chronic Noninfectious gastroenteritis (20 sources) Noninfectious gastroenteritis; Translations: [Noninfective gastroenteritis and colitis, unspecified] Onset: 11-02-2020 09-13-2021 Episodic Nonspecific chest pain (20 sources) Chest pain; Translations: [Chest pain, unspecified] 12-27-2021 Episodic Other aftercare (6 sources) Long-term current use of drug therapy; Translations: [Other retirement (current) drug therapy] 08-28-2024 Episodic Other circulatory disease (7 sources) Orthostatic hypotension; Translations: [Orthostatic hypotension] 02-16-2025 Episodic Other complications of ; puerperium affecting management of mother (20 sources) Deliveries by ; Translations: [Encounter for delivery without indication] Onset: 09-13-2021 Resolved: 06-09-2025 09-13-2021 Episodic Other connective tissue disease (1 source) Pain in bilateral legs; Translations: [Pain in right leg] 08-07-2024 Episodic Other connective tissue disease (4 sources) Muscle pain; Translations: [Myalgia, unspecified site] 07-20-2025 Episodic Other disorders of stomach and duodenum (20 sources) Gastroparesis syndrome; Translations: [Gastroparesis] 10-05-2021 Episodic Other endocrine disorders (20 sources) Slade's disease; 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] Onset: 09-07-2021 Resolved: 11-18-2022 01-18-2022 Chronic Other endocrine disorders (20 sources) Hypoglycemia; Translations: [Hypoglycemia, unspecified] Onset: 01-14-2022 Resolved: 06-09-2025 01-18-2022 Chronic Other endocrine disorders (4 sources) Adrenal cortical hypofunction; Translations: [Unspecified adrenocortical insufficiency] Chronic Other endocrine disorders (20 sources) Severe adrenal insufficiency; Translations: [Addisonian crisis] Chronic Other endocrine disorders (3 sources) Addisonian crisis; Translations: [Glucocorticoid deficiency] Onset: 2025 Chronic Other endocrine disorders (3 sources) Primary adrenocortical insufficiency; Translations: [Adrenal insufficiency (Wabasso's disease) (HCC)] Onset: 08-14-2022 Chronic Other endocrine disorders (1 source) Primary adrenocortical insufficiency; 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] Chronic Other endocrine disorders (14 sources) Acute adrenal insufficiency; Translations: [Unspecified adrenocortical insufficiency] 02-16-2025 Chronic Other endocrine disorders (1 source) Hypoadrenalism; Translations: [Addisonian crisis] 2025 Chronic Other endocrine disorders (2 sources) Unspecified adrenocortical insufficiency; Translations: [Unspecified adrenocortical insufficiency] Onset: 08-28-2025 Chronic Other female genital disorders (20 sources) Abnormal uterine bleeding; Translations: [Abnormal uterine and vaginal bleeding, unspecified] 12-27-2020 Chronic Other gastrointestinal disorders (20 sources) Dysphagia; Translations: [Dysphagia, unspecified] Episodic Other gastrointestinal disorders (20 sources) Diarrhea; Translations: [Diarrhea, unspecified] Episodic Other gastrointestinal disorders (1 source) Chronic constipation; Translations: [Other constipation] 06-14-2023 Episodic Other injuries and conditions due to external causes (12 sources) Closed injury of head; Translations: [Unspecified injury of head, initial encounter] 11-08-2022 Episodic Other liver diseases (2 sources) Steatosis of liver; Translations: [Fatty (change of) liver, not elsewhere classified] 04-06-2024 Chronic Other liver diseases (20 sources) Elevated liver enzymes level; Translations: [Abnormal levels of other serum enzymes] Onset: 05-03-2023 Episodic Other liver diseases (2 sources) Abnormal levels of other serum enzymes; Translations: [Elevated liver enzymes] Onset: 05-03-2023 Episodic Other nervous system disorders (20 sources) Ulnar nerve entrapment; Translations: [Lesion of ulnar nerve, unspecified upper limb] 09-11-2019 Chronic Other nervous system disorders (3 sources) Chronic pain syndrome; Translations: [Chronic pain syndrome] Chronic Other nervous system disorders (1 source) Chronic pain syndrome; Translations: [Chronic pain syndrome] Onset: 03-16-2023 Chronic Other non-traumatic joint disorders (2 sources) Multiple joint pain; Translations: [Pain in unspecified joint] Episodic Other non-traumatic joint disorders (1 source) Hip pain; Translations: [Pain in unspecified hip] Episodic Other nutritional; endocrine; and metabolic disorders (2 sources) Obesity; Translations: [Obesity, unspecified] 12-06-2023 Chronic Other nutritional; endocrine; and metabolic disorders (2 sources) Severe obesity; Translations: [Morbid (severe) obesity due to excess calories] 03-15-2024 Chronic Other nutritional; endocrine; and metabolic disorders (2 sources) H/O: thyroid disorder; Translations: [Personal history of other endocrine, nutritional and metabolic disease] Episodic Other nutritional; endocrine; and metabolic disorders (2 sources) H/O: endocrine disorder; Translations: [Personal history of other endocrine, nutritional and metabolic disease] Episodic Other nutritional; endocrine; and metabolic disorders (2 sources) Weight loss; Translations: [Abnormal weight loss] Episodic Other nutritional; endocrine; and metabolic disorders (1 source) Loss of appetite; Translations: [Anorexia] Episodic Other skin disorders (2 sources) Butterfly rash; Translations: [Rash and other nonspecific skin eruption] Episodic Otitis media and related conditions (1 source) Acute right otitis media; Translations: [Otitis media, unspecified, right ear] 12-18-2024 Episodic Ovarian cyst (6 sources) Follicular cyst of ovary; Translations: [Cyst of ovary] Onset: 08-11-2017 08-11-2017 Episodic Residual codes; unclassified (20 sources) Insomnia; Translations: [Other insomnia] Onset: 08-15-2022 08-15-2022 Chronic Residual codes; unclassified (20 sources) Gestation period, 39 weeks; Translations: [39 weeks gestation of ] 09-10-2019 Episodic Residual codes; unclassified (20 sources) Confusional state; Translations: [Disorientation, unspecified] 05-31-2018 Episodic Residual codes; unclassified (16 sources) H/O: urinary disease; Translations: [Personal history of other specified conditions] 09-16-2022 Episodic Residual codes; unclassified (1 source) Influenza-like symptoms; Translations: [Other general symptoms and signs] Episodic Residual codes; unclassified (1 source) Unable to perform personal care activity; Translations: [Other specified health status] Episodic Residual codes; unclassified (2 sources) Failed encounter; Translations: [No-show for appointment] 06-12-2024 Episodic Respiratory failure; insufficiency; arrest (adult) (20 sources) Acute respiratory failure; Translations: [Acute respiratory failure, unspecified whether with hypoxia or hypercapnia] 05-31-2018 Episodic Spondylosis; intervertebral disc disorders; other back problems (20 sources) Acute low back pain; Translations: [Acute midline low back pain without sciatica] Onset: 02-05-2023 Episodic Sprains and strains (20 sources) Neck sprain; Translations: [Sprain of joints and ligaments of unspecified parts of neck, initial encounter] 09-11-2019 Episodic Superficial injury; contusion (20 sources) Contusion of lower back; Translations: [Contusion of lower back and pelvis, initial encounter] Onset: 06-09-2025 11-08-2022 Episodic Syncope (3 sources) Syncope; Translations: [Syncope and collapse] Episodic Systemic lupus erythematosus and connective tissue disorders (20 sources) Systemic lupus erythematosus-related syndrome; Translations: [Systemic lupus erythematosus, unspecified] Onset: 08-15-2022 08-15-2022 Chronic Thyroid disorders (20 sources) Graves' disease; Translations: [Thyrotoxicosis with diffuse goiter without thyrotoxic crisis or storm] Onset: 12-23-2015 01-18-2022 Chronic Unclassified (1 source) Unknown / UNK(Unknown) Onset: 05-10-2017 Unclassified (7 sources) NO SHOW Unclassified (2 sources) APPOINTMENT CANCELLED 09-27-2023 Urinary tract infections (20 sources) Pyelonephritis; Translations: [Tubulo-interstitial nephritis, not specified as acute or chronic] 09-19-2022 Episodic Viral infection (20 sources) Disease caused by 2019-nCoV; Translations: [COVID-19] Episodic Past or Other Problems Problem Classification Problem Date Documented Da te Episodic/Chronic Administrative/social admission (5 sources) Stress; Translations: [Other specified problems related to psychosocial circumstances] Onset: 01-01-2025 11-20-2024 Episodic Deficiency and other anemia (1 source) Anemia, unspecified; Translations: [Anemia, unspecified type] Onset: 2025 Episodic Diabetes mellitus without complication (20 sources) Prediabetes; Translations: [Prediabetes] Onset: 08-15-2022 Resolved: 06-09-2025 08-15-2022 Episodic Epilepsy; convulsions (20 sources) Neurological finding; Translations: [Unspecified convulsions] Onset: 03-20-2021 Resolved: 02-06-2023 01-18-2022 Episodic Esophageal disorders (20 sources) Esophagitis; Translations: [Esophagitis] Onset: 01-15-2022 01-18-2022 Episodic Gastrointestinal hemorrhage (1 source) Melena; Translations: [Melena] Onset: 06-28-2017 Episodic Immunizations and screening for infectious disease (20 sources) Anti-nuclear factor positive; Translations: [Other specified abnormal immunological findings in serum] Onset: 01-15-2022 Resolved: 06-09-2025 01-18-2022 Episodic Inflammation; infection of eye (except that caused by tuberculosis or sexually transmitteddisease) (1 source) Hordeolum externum left lower eyelid; Translations: [Hordeolum externum left lower eyelid] Onset: 08-11-2017 08-11-2017 Episodic Malaise and fatigue (20 sources) Asthenia; Translations: [Weakness] Onset: 09-14-2020 Resolved: 06-09-2025 09-13-2021 Episodic Nausea and vomiting (20 sources) Nausea; Translations: [Nausea and vomiting] Onset: 06-28-2017 Episodic Nutritional deficiencies (20 sources) Undernutrition; Translations: [Mild protein-calorie malnutrition] Onset: 11-20-2022 Resolved: 06-09-2025 Chronic Open wounds of head; neck; and trunk (1 source) Laceration of nose; Translations: [Laceration of nose, initial encounter] Episodic Other aftercare (1 source) Other termite control representative (current) drug therapy; Translations: [Encounter for long-term (current) use of medications] Onset: 01-01-2025 Episodic Other circulatory disease (1 source) Orthostatic hypotension; Translations: [Orthostatic hypotension] Onset: 02-20-2025 Episodic Other complications of ; puerperium affecting management of mother (20 sources) delivery - delivered; Translations: [Encounter for delivery without indication] Onset: 09-13-2021 09-13-2021 Episodic Other gastrointestinal disorders (2 sources) Diarrhea, unspecified; Translations: [Diarrhea, unspecified] Onset: 06-28-2017 Episodic Other nervous system disorders (20 sources) Paresthesia; Translations: [Paresthesia of skin] Onset: 01-15-2022 01-18-2022 Episodic Other nutritional; endocrine; and metabolic disorders (20 sources) Obese class I; Translations: [Obesity, unspecified] Onset: 05-12-2023 Resolved: 12-06-2023 05-12-2023 Chronic Other screening for suspected conditions (not mental disorders or infectious disease) (20 sources) Liver function tests abnormal; Translations: [Other specified abnormal findings of blood chemistry] Onset: 11-20-2022 Episodic Other upper respiratory infections (20 sources) Sore throat symptom; Translations: [Acute pharyngitis, unspecified] Onset: 07-03-2014 Resolved: 07-30-2014 Episodic Results Test Name Value Interpretation Reference Range Facility Basic Metabolic Profile (BMP )on 09-03-2025 BUN Normal 4-19 [facility] Comment on above: Result Comment: Canc elled via OM: Order cancelled - Patient discharged Performed By: #### L 500.2500, L100.0500 ####[facility] [address] [facility] [address] BUN/CRE Normal 10-20 [facility] Comment on above: Result Comment: Canc elled via OM: Order cancelled - Patient discharged Performed By: #### L 500.2500, L100.0500 ####[facility] [address] [place], [address] Calcium Normal 7.6-11.0 [facility] Comment on above: Result Comment: Canc elled via OM: Order cancelled - Patient discharged Performed By: #### L 500.2500, L100.0500 ####[facility] [address] [place], [address] CL Normal 98-108 [facility] Comment on above: Result Comment: Canc elled via OM: Order cancelled - Patient discharged Performed By: #### L 500.2500, L100.0500 ####[facility] [address] [place], [address] CO2 Normal 21.0-32.0 [facility] Comment on above: Result Comment: Canc elled via OM: Order cancelled - Patient discharged Performed By: #### L 500.2500, L100.0500 ####[facility] [address] [place], [address] CREAT,SERUM Normal 0.70-1.20 [facility] Comment on above: Result Comment: Canc elled via OM: Order cancelled - Patient discharged Performed By: #### L 500.2500, L100.0500 ####[facility] [address] [place], [address] eGFR Normal >60 [facility] Comment on above: Result Comment: Canc elled via OM: Order cancelled - Patient discharged Performed By: #### L 500.2500, L100.0500 ####[facility] [address] [place], [address] GAP Normal 5-15 [facility] Comment on above: Result Comment: Canc elled via OM: Order cancelled - Patient discharged Performed By: #### L 500.2500, L100.0500 ####[facility] [address] [place], [address] GLU Normal 70-99 [facility] Comment on above: Result Comment: Canc elled via OM: Order cancelled - Patient discharged Performed By: #### L 500.2500, L100.0500 ####[facility] [address] [place], [address] Potassium Normal 3.3-5.1 [facility] Comment on above: Result Comment: Canc elled via OM: Order cancelled - Patient discharged Performed By: #### L 500.2500, L100.0500 ####[facility] [address] [place], [address] Basic Metabolic Profile (BMP) Normal 133-145 [facility] Comment on above: Result Comment: Canc elled via OM: Order cancelled - Patient discharged Performed By: #### L 500.2500, L100.0500 ####[facility] [address] [place], [address] CBC-Complete Blood Cnt No Di ffon 09-03-2025 HCT Normal 37-47 [facility] Comment on above: Result Comment: Canc elled via OM: Order cancelled - Patient discharged Performed By: #### L 500.2500, L100.0500 ####[facility] [address] [place], [address] HGB Normal 12.0-15.0 [facility] Comment on above: Result Comment: Canc elled via OM: Order cancelled - Patient discharged Performed By: #### L 500.2500, L100.0500 ####[facility] [address] [place], [address] MCH Normal 27.0-32.0 [facility] Comment on above: Result Comment: Canc elled via OM: Order cancelled - Patient discharged Performed By: #### L 500.2500, L100.0500 ####[facility] [address] [place], [address] MCHC Normal 32-36 [facility] Comment on above: Result Comment: Canc elled via OM: Order cancelled - Patient discharged Performed By: #### L 500.2500, L100.0500 ####[facility] [address] [place], [address] MCV Normal 81-99 [facility] Comment on above: Result Comment: Canc elled via OM: Order cancelled - Patient discharged Performed By: #### L 500.2500, L100.0500 ####[facility] [address] [place], [address] PLT Normal 150-450 [facility] Comment on above: Result Comment: Canc elled via OM: Order cancelled - Patient discharged Performed By: #### L 500.2500, L100.0500 ####[facility] [address] [place], [address] RBC Normal 4.2-5.4 [facility] Comment on above: Result Comment: Canc elled via OM: Order cancelled - Patient discharged Performed By: #### L 500.2500, L100.0500 ####[facility] [address] [place], [address] RDW CV Normal 11.6-14.6 [facility] Comment on above: Result Comment: Canc elled via OM: Order cancelled - Patient discharged Performed By: #### L 500.2500, L100.0500 ####[facility] [address] [place], [address] RDW SD Normal 35.1-43.9 [facility] Comment on above: Result Comment: Canc elled via OM: Order cancelled - Patient discharged Performed By: #### L 500.2500, L100.0500 ####[facility] [address] [place], [address] WBC Normal 4.4-11.0 [facility] Comment on above: Result Comment: Canc elled via OM: Order cancelled - Patient discharged Performed By: #### L 500.2500, L100.0500 ####[facility] [address] [place], [address] Basic Metabolic Profile (BMP )on 09-02-2025 BUN Normal 4-19 [facility] Comment on above: Result Comment: Canc elled via OM: Order cancelled - Patient discharged Performed By: #### L 100.0500, L500.2500 ####[facility] [address] [place], [address] BUN/CRE Normal 10-20 [facility] Comment on above: Result Comment: Canc elled via OM: Order cancelled - Patient discharged Performed By: #### L 100.0500, L500.2500 ####[facility] [address] [place], [address] Calcium Normal 7.6-11.0 [facility] Comment on above: Result Comment: Canc elled via OM: Order cancelled - Patient discharged Performed By: #### L 100.0500, L500.2500 ####[facility] [address] [place], [address] CL Normal 98-108 [facility] Comment on above: Result Comment: Canc elled via OM: Order cancelled - Patient discharged Performed By: #### L 100.0500, L500.2500 ####[facility] [address] [place], [address] CO2 Normal 21.0-32.0 [facility] Comment on above: Result Comment: Canc elled via OM: Order cancelled - Patient discharged Performed By: #### L 100.0500, L500.2500 ####[facility] [address] [place], [address] CREAT,SERUM Normal 0.70-1.20 [facility] Comment on above: Result Comment: Canc elled via OM: Order cancelled - Patient discharged Performed By: #### L 100.0500, L500.2500 ####[facility] [address] [place], [address] eGFR Normal >60 [facility] Comment on above: Result Comment: Canc elled via OM: Order cancelled - Patient discharged Performed By: #### L 100.0500, L500.2500 ####[facility] [address] [place], [address] GAP Normal 5-15 [facility] Comment on above: Result Comment: Canc elled via OM: Order cancelled - Patient discharged Performed By: #### L 100.0500, L500.2500 ####[facility] [address] [place], [address] GLU Normal 70-99 [facility] Comment on above: Result Comment: Canc elled via OM: Order cancelled - Patient discharged Performed By: #### L 100.0500, L500.2500 ####[facility] [address] [place], [address] Potassium Normal 3.3-5.1 [facility] Comment on above: Result Comment: Canc elled via OM: Order cancelled - Patient discharged Performed By: #### L 100.0500, L500.2500 ####[facility] [address] [place], [address] Basic Metabolic Profile (BMP) Normal 133-145 [facility] Comment on above: Result Comment: Canc elled via OM: Order cancelled - Patient discharged Performed By: #### L 100.0500, L500.2500 ####[facility] [address] [place], [address] CBC-Complete Blood Cnt No Di ffon 09-02-2025 HCT Normal 37-47 [facility] Comment on above: Result Comment: Canc elled via OM: Order cancelled - Patient discharged Performed By: #### L 100.0500, L500.2500 ####[facility] [address] [place], [address] HGB Normal 12.0-15.0 [facility] Comment on above: Result Comment: Canc elled via OM: Order cancelled - Patient discharged Performed By: #### L 100.0500, L500.2500 ####[facility] [address] [place], [address] MCH Normal 27.0-32.0 [facility] Comment on above: Result Comment: Canc elled via OM: Order cancelled - Patient discharged Performed By: #### L 100.0500, L500.2500 ####[facility] [address] [place], [address] MCHC Normal 32-36 [facility] Comment on above: Result Comment: Canc elled via OM: Order cancelled - Patient discharged Performed By: #### L 100.0500, L500.2500 ####[facility] [address] [place], [address] MCV Normal 81-99 [facility] Comment on above: Result Comment: Canc elled via OM: Order cancelled - Patient discharged Performed By: #### L 100.0500, L500.2500 ####[facility] [address] [place], [address] PLT Normal 150-450 [facility] Comment on above: Result Comment: Canc elled via OM: Order cancelled - Patient discharged Performed By: #### L 100.0500, L500.2500 ####[facility] [address] [place], [address] RBC Normal 4.2-5.4 [facility] Comment on above: Result Comment: Canc elled via OM: Order cancelled - Patient discharged Performed By: #### L 100.0500, L500.2500 ####[facility] [address] [place], [address] RDW CV Normal 11.6-14.6 [facility] Comment on above: Result Comment: Canc elled via OM: Order cancelled - Patient discharged Performed By: #### L 100.0500, L500.2500 ####[facility] [address] [place], [address] RDW SD Normal 35.1-43.9 [facility] Comment on above: Result Comment: Canc elled via OM: Order cancelled - Patient discharged Performed By: #### L 100.0500, L500.2500 ####[facility] [address] [place], [address] WBC Normal 4.4-11.0 [facility] Comment on above: Result Comment: Canc elled via OM: Order cancelled - Patient discharged Performed By: #### L 100.0500, L500.2500 ####[facility] [address] [place], [address] Basic Metabolic Profile (BMP )on 09-01-2025 BUN Normal 4-19 [facility] Comment on above: Result Comment: Canc elled via OM: Order cancelled - Patient discharged Performed By: #### L 500.2500, L100.0500 ####[facility] [address] [place], [address] BUN/CRE Normal -20 [facility] Comment on above: Result Comment: Canc elled via OM: Order cancelled - Patient discharged Performed By: #### L 500.2500, L100.0500 ####[facility] [address] [place], [address] Calcium Normal 7.6-11.0 [facility] Comment on above: Result Comment: Canc elled via OM: Order cancelled - Patient discharged Performed By: #### L 500.2500, L100.0500 ####[facility] [address] [place], [address] CL Normal 98-108 [facility] Comment on above: Result Comment: Canc elled via OM: Order cancelled - Patient discharged Performed By: #### L 500.2500, L100.0500 ####[facility] [address] [place], [address] CO2 Normal 21.0-32.0 [facility] Comment on above: Result Comment: Canc elled via OM: Order cancelled - Patient discharged Performed By: #### L 500.2500, L100.0500 ####[facility] [address] [place], [address] CREAT,SERUM Normal 0.70-1.20 [facility] Comment on above: Result Comment: Canc elled via OM: Order cancelled - Patient discharged Performed By: #### L 500.2500, L100.0500 ####[facility] [address] [place], [address] eGFR Normal >60 [facility] Comment on above: Result Comment: Canc elled via OM: Order cancelled - Patient discharged Performed By: #### L 500.2500, L100.0500 ####[facility] [address] [place], [address] GAP Normal 5-15 [facility] Comment on above: Result Comment: Canc elled via OM: Order cancelled - Patient discharged Performed By: #### L 500.2500, L100.0500 ####[facility] [address] [place], [address] GLU Normal 70-99 [facility] Comment on above: Result Comment: Canc elled via OM: Order cancelled - Patient discharged Performed By: #### L 500.2500, L100.0500 ####[facility] [address] [place], [address] Potassium Normal 3.3-5.1 [facility] Comment on above: Result Comment: Canc elled via OM: Order cancelled - Patient discharged Performed By: #### L 500.2500, L100.0500 ####[facility] [address] [place], [address] Basic Metabolic Profile (BMP) Normal 133-145 [facility] Comment on above: Result Comment: Canc elled via OM: Order cancelled - Patient discharged Performed By: #### L 500.2500, L100.0500 ####[facility] [address] [place], [address] CBC-Complete Blood Cnt No Di ffon 09-01-2025 HCT Normal 37-47 [facility] Comment on above: Result Comment: Canc elled via OM: Order cancelled - Patient discharged Performed By: #### L 500.2500, L100.0500 ####[facility] [address] [place], [address] HGB Normal 12.0-15.0 [facility] Comment on above: Result Comment: Canc elled via OM: Order cancelled - Patient discharged Performed By: #### L 500.2500, L100.0500 ####[facility] [address] [place], [address] MCH Normal 27.0-32.0 [facility] Comment on above: Result Comment: Canc elled via OM: Order cancelled - Patient discharged Performed By: #### L 500.2500, L100.0500 ####[facility] [address] [place], [address] MCHC Normal 32-36 [facility] Comment on above: Result Comment: Canc elled via OM: Order cancelled - Patient discharged Performed By: #### L 500.2500, L100.0500 ####[facility] [address] [place], [address] MCV Normal 81-99 [facility] Comment on above: Result Comment: Canc elled via OM: Order cancelled - Patient discharged Performed By: #### L 500.2500, L100.0500 ####[facility] [address] [place], [address] PLT Normal 150-450 [facility] Comment on above: Result Comment: Canc elled via OM: Order cancelled - Patient discharged Performed By: #### L 500.2500, L100.0500 ####[facility] [address] [place], [address] RBC Normal 4.2-5.4 [facility] Comment on above: Result Comment: Canc elled via OM: Order cancelled - Patient discharged Performed By: #### L 500.2500, L100.0500 ####[facility] [address] [place], [address] RDW CV Normal 11.6-14.6 [facility] Comment on above: Result Comment: Canc elled via OM: Order cancelled - Patient discharged Performed By: #### L 500.2500, L100.0500 ####[facility] [address] [place], [address] RDW SD Normal 35.1-43.9 [facility] Comment on above: Result Comment: Canc elled via OM: Order cancelled - Patient discharged Performed By: #### L 500.2500, L100.0500 ####[facility] [address] [place], [address] WBC Normal 4.4-11.0 [facility] Comment on above: Result Comment: Canc elled via OM: Order cancelled - Patient discharged Performed By: #### L 500.2500, L100.0500 ####[facility] [address] [place], [address] Basic Metabolic Profile (BMP )on 08-31-2025 BUN Normal 4-19 [facility] Comment on above: Result Comment: Canc elled via OM: Order cancelled - Patient discharged Performed By: #### L 100.0500, L500.2500 ####[facility] [address] [place], [address] BUN/CRE Normal 10-20 [facility] Comment on above: Result Comment: Canc elled via OM: Order cancelled - Patient discharged Performed By: #### L 100.0500, L500.2500 ####[facility] [address] [place], [address] Calcium Normal 7.6-11.0 [facility] Comment on above: Result Comment: Canc elled via OM: Order cancelled - Patient discharged Performed By: #### L 100.0500, L500.2500 ####[facility] [address] [place], [address] CL Normal 98-108 [facility] Comment on above: Result Comment: Canc elled via OM: Order cancelled - Patient discharged Performed By: #### L 100.0500, L500.2500 ####[facility] [address] [place], [address] CO2 Normal 21.0-32.0 [facility] Comment on above: Result Comment: Canc elled via OM: Order cancelled - Patient discharged Performed By: #### L 100.0500, L500.2500 ####[facility] [address] [place], [address] CREAT,SERUM Normal 0.70-1.20 [facility] Comment on above: Result Comment: Canc elled via OM: Order cancelled - Patient discharged Performed By: #### L 100.0500, L500.2500 ####[facility] [address] [place], [address] eGFR Normal >60 [facility] Comment on above: Result Comment: Canc elled via OM: Order cancelled - Patient discharged Performed By: #### L 100.0500, L500.2500 ####[facility] [address] [place], [address] GAP Normal 5-15 [facility] Comment on above: Result Comment: Canc elled via OM: Order cancelled - Patient discharged Performed By: #### L 100.0500, L500.2500 ####[facility] [address] [place], [address] GLU Normal 70-99 [facility] Comment on above: Result Comment: Canc elled via OM: Order cancelled - Patient discharged Performed By: #### L 100.0500, L500.2500 ####[facility] [address] [place], [address] Potassium Normal 3.3-5.1 [facility] Comment on above: Result Comment: Canc elled via OM: Order cancelled - Patient discharged Performed By: #### L 100.0500, L500.2500 ####[facility] [address] [place], [address] Basic Metabolic Profile (BMP) Normal 133-145 [facility] Comment on above: Result Comment: Canc elled via OM: Order cancelled - Patient discharged Performed By: #### L 100.0500, L500.2500 ####[facility] [address] [place], [address] CBC-Complete Blood Cnt No Di ffon 08-31-2025 HCT Normal 37-47 [facility] Comment on above: Result Comment: Canc elled via OM: Order cancelled - Patient discharged Performed By: #### L 100.0500, L500.2500 ####[facility] [address] [place], [address] HGB Normal 12.0-15.0 [facility] Comment on above: Result Comment: Canc elled via OM: Order cancelled - Patient discharged Performed By: #### L 100.0500, L500.2500 ####[facility] [address] [place], [address] MCH Normal 27.0-32.0 [facility] Comment on above: Result Comment: Canc elled via OM: Order cancelled - Patient discharged Performed By: #### L 100.0500, L500.2500 ####[facility] [address] [place], [address] MCHC Normal 32-36 [facility] Comment on above: Result Comment: Canc elled via OM: Order cancelled - Patient discharged Performed By: #### L 100.0500, L500.2500 ####[facility] [address] [place], [address] MCV Normal 81-99 [facility] Comment on above: Result Comment: Canc elled via OM: Order cancelled - Patient discharged Performed By: #### L 100.0500, L500.2500 ####[facility] [address] [place], [address] PLT Normal 150-450 [facility] Comment on above: Result Comment: Canc elled via OM: Order cancelled - Patient discharged Performed By: #### L 100.0500, L500.2500 ####[facility] [address] [place], [address] RBC Normal 4.2-5.4 [facility] Comment on above: Result Comment: Canc elled via OM: Order cancelled - Patient discharged Performed By: #### L 100.0500, L500.2500 ####[facility] [address] [place], [address] RDW CV Normal 11.6-14.6 [facility] Comment on above: Result Comment: Canc elled via OM: Order cancelled - Patient discharged Performed By: #### L 100.0500, L500.2500 ####[facility] [address] [place], [address] RDW SD Normal 35.1-43.9 [facility] Comment on above: Result Comment: Canc elled via OM: Order cancelled - Patient discharged Performed By: #### L 100.0500, L500.2500 ####[facility] [address] [place], [address] WBC Normal 4.4-11.0 [facility] Comment on above: Result Comment: Canc elled via OM: Order cancelled - Patient discharged Performed By: #### L 100.0500, L500.2500 ####[facility] [address] [place], [address] Basic Metabolic Profile (BMP )on 08-30-2025 BUN Normal 4-19 [facility] Comment on above: Result Comment: Canc elled via OM: Order cancelled - Patient discharged Performed By: #### L 100.0500, L500.2500 ####[facility] [address] [place], [address] BUN/CRE Normal 10-20 [facility] Comment on above: Result Comment: Canc elled via OM: Order cancelled - Patient discharged Performed By: #### L 100.0500, L500.2500 ####[facility] [address] [place], [address] Calcium Normal 7.6-11.0 [facility] Comment on above: Result Comment: Canc elled via OM: Order cancelled - Patient discharged Performed By: #### L 100.0500, L500.2500 ####[facility] [address] [place], [address] CL Normal 98-108 [facility] Comment on above: Result Comment: Canc elled via OM: Order cancelled - Patient discharged Performed By: #### L 100.0500, L500.2500 ####[facility] [address] [place], [address] CO2 Normal 21.0-32.0 [facility] Comment on above: Result Comment: Canc elled via OM: Order cancelled - Patient discharged Performed By: #### L 100.0500, L500.2500 ####[facility] [address] [place], [address] CREAT,SERUM Normal 0.70-1.20 [facility] Comment on above: Result Comment: Canc elled via OM: Order cancelled - Patient discharged Performed By: #### L 100.0500, L500.2500 ####[facility] [address] [place], [address] eGFR Normal >60 [facility] Comment on above: Result Comment: Canc elled via OM: Order cancelled - Patient discharged Performed By: #### L 100.0500, L500.2500 ####[facility] [address] [place], [address] GAP Normal 5-15 [facility] Comment on above: Result Comment: Canc elled via OM: Order cancelled - Patient discharged Performed By: #### L 100.0500, L500.2500 ####[facility] [address] [place], [address] GLU Normal 70-99 [facility] Comment on above: Result Comment: Canc elled via OM: Order cancelled - Patient discharged Performed By: #### L 100.0500, L500.2500 ####[facility] [address] [place], [address] Potassium Normal 3.3-5.1 [facility] Comment on above: Result Comment: Canc elled via OM: Order cancelled - Patient discharged Performed By: #### L 100.0500, L500.2500 ####[facility] [address] [place], [address] Basic Metabolic Profile (BMP) Normal 133-145 [facility] Comment on above: Result Comment: Canc elled via OM: Order cancelled - Patient discharged Performed By: #### L 100.0500, L500.2500 ####[facility] [address] [place], [address] CBC-Complete Blood Cnt No Di ffon 08-30-2025 HCT Normal 37-47 [facility] Comment on above: Result Comment: Canc elled via OM: Order cancelled - Patient discharged Performed By: #### L 100.0500, L500.2500 ####[facility] [address] [place], [address] HGB Normal 12.0-15.0 [facility] Comment on above: Result Comment: Canc elled via OM: Order cancelled - Patient discharged Performed By: #### L 100.0500, L500.2500 ####[facility] [address] [place], [address] MCH Normal 27.0-32.0 [facility] Comment on above: Result Comment: Canc elled via OM: Order cancelled - Patient discharged Performed By: #### L 100.0500, L500.2500 ####[facility] [address] [place], [address] MCHC Normal 32-36 [facility] Comment on above: Result Comment: Canc elled via OM: Order cancelled - Patient discharged Performed By: #### L 100.0500, L500.2500 ####[facility] [address] [place], [address] MCV Normal 81-99 [facility] Comment on above: Result Comment: Canc elled via OM: Order cancelled - Patient discharged Performed By: #### L 100.0500, L500.2500 ####[facility] [address] [place], [address] PLT Normal 150-450 [facility] Comment on above: Result Comment: Canc elled via OM: Order cancelled - Patient discharged Performed By: #### L 100.0500, L500.2500 ####[facility] [address] [place], [address] RBC Normal 4.2-5.4 [facility] Comment on above: Result Comment: Canc elled via OM: Order cancelled - Patient discharged Performed By: #### L 100.0500, L500.2500 ####[facility] [address] [place], [address] RDW CV Normal 11.6-14.6 [facility] Comment on above: Result Comment: Canc elled via OM: Order cancelled - Patient discharged Performed By: #### L 100.0500, L500.2500 ####[facility] [address] [place], [address] RDW SD Normal 35.1-43.9 [facility] Comment on above: Result Comment: Canc elled via OM: Order cancelled - Patient discharged Performed By: #### L 100.0500, L500.2500 ####[facility] [address] [place], [address] WBC Normal 4.4-11.0 [facility] Comment on above: Result Comment: Canc elled via OM: Order cancelled - Patient discharged Performed By: #### L 100.0500, L500.2500 ####[facility] [address] [place], [address] Basic Metabolic Profile (BMP )on 08-29-2025 BUN Normal 4-19 [facility] Comment on above: Result Comment: Canc elled via OM: Order cancelled - Patient discharged Performed By: #### L 100.0500, L500.2500 ####[facility] [address] [place], [address] BUN/CRE Normal 10-20 [facility] Comment on above: Result Comment: Canc elled via OM: Order cancelled - Patient discharged Performed By: #### L 100.0500, L500.2500 ####[facility] [address] [place], [address] Calcium Normal 7.6-11.0 [facility] Comment on above: Result Comment: Canc elled via OM: Order cancelled - Patient discharged Performed By: #### L 100.0500, L500.2500 ####[facility] [address] [place], [address] CL Normal 98-108 [facility] Comment on above: Result Comment: Canc elled via OM: Order cancelled - Patient discharged Performed By: #### L 100.0500, L500.2500 ####[facility] [address] [place], [address] CO2 Normal 21.0-32.0 [facility] Comment on above: Result Comment: Canc elled via OM: Order cancelled - Patient discharged Performed By: #### L 100.0500, L500.2500 ####[facility] [address] [place], [address] CREAT,SERUM Normal 0.70-1.20 [facility] Comment on above: Result Comment: Canc elled via OM: Order cancelled - Patient discharged Performed By: #### L 100.0500, L500.2500 ####[facility] [address] [place], [address] eGFR Normal >60 [facility] Comment on above: Result Comment: Canc elled via OM: Order cancelled - Patient discharged Performed By: #### L 100.0500, L500.2500 ####[facility] [address] [place], [address] GAP Normal 5-15 [facility] Comment on above: Result Comment: Canc elled via OM: Order cancelled - Patient discharged Performed By: #### L 100.0500, L500.2500 ####[facility] [address] [place], [address] GLU Normal 70-99 [facility] Comment on above: Result Comment: Canc elled via OM: Order cancelled - Patient discharged Performed By: #### L 100.0500, L500.2500 ####[facility] [address] [place], [address] Potassium Normal 3.3-5.1 [facility] Comment on above: Result Comment: Canc elled via OM: Order cancelled - Patient discharged Performed By: #### L 100.0500, L500.2500 ####[facility] [address] [place], [address] Basic Metabolic Profile (BMP) Normal 133-145 [facility] Comment on above: Result Comment: Canc elled via OM: Order cancelled - Patient discharged Performed By: #### L 100.0500, L500.2500 ####[facility] [address] [place], [address] CBC-Complete Blood Cnt No Di ffon 08-29-2025 HCT Normal 37-47 [facility] Comment on above: Result Comment: Canc elled via OM: Order cancelled - Patient discharged Performed By: #### L 100.0500, L500.2500 ####[facility] [address] [place], [address] HGB Normal 12.0-15.0 [facility] Comment on above: Result Comment: Canc elled via OM: Order cancelled - Patient discharged Performed By: #### L 100.0500, L500.2500 ####[facility] [address] [place], [address] MCH Normal 27.0-32.0 [facility] Comment on above: Result Comment: Canc elled via OM: Order cancelled - Patient discharged Performed By: #### L 100.0500, L500.2500 ####[facility] [address] [place], [address] MCHC Normal 32-36 [facility] Comment on above: Result Comment: Canc elled via OM: Order cancelled - Patient discharged Performed By: #### L 100.0500, L500.2500 ####[facility] [address] [place], [address] MCV Normal 81-99 [facility] Comment on above: Result Comment: Canc elled via OM: Order cancelled - Patient discharged Performed By: #### L 100.0500, L500.2500 ####[facility] [address] [place], [address] PLT Normal 150-450 [facility] Comment on above: Result Comment: Canc elled via OM: Order cancelled - Patient discharged Performed By: #### L 100.0500, L500.2500 ####[facility] [address] [place], [address] RBC Normal 4.2-5.4 [facility] Comment on above: Result Comment: Canc elled via OM: Order cancelled - Patient discharged Performed By: #### L 100.0500, L500.2500 ####[facility] [address] [place], [address] RDW CV Normal 11.6-14.6 [facility] Comment on above: Result Comment: Canc elled via OM: Order cancelled - Patient discharged Performed By: #### L 100.0500, L500.2500 ####[facility] [address] [place], [address] RDW SD Normal 35.1-43.9 [facility] Comment on above: Result Comment: Canc elled via OM: Order cancelled - Patient discharged Performed By: #### L 100.0500, L500.2500 ####[facility] [address] [place], [address] WBC Normal 4.4-11.0 [facility] Comment on above: Result Comment: Canc elled via OM: Order cancelled - Patient discharged Performed By: #### L 100.0500, L500.2500 ####[facility] [address] [place], [address] Basic Metabolic Profile (BMP )on 08-28-2025 BUN/CRE 11.6 RATIO Normal 10-20 [facility] Comment on above: Performed By: #### L 100.0500, L500.2500 ####[facility] [address] [place], [address] Calcium [Mass/Vol] 8.6 mg/dL Normal 7.6-11.0 [facility] Comment on above: Performed By: #### L 100.0500, L500.2500 ####[facility] [address] [place], [address] Chloride [Moles/Vol] 106 mmol/L Normal 98-108 [facility] Comment on above: Performed By: #### L 100.0500, L500.2500 ####[facility] [address] [place], [address] CO2 [Moles/Vol] 21.6 mmol/L Normal 21.0-32.0 [facility] Comment on above: Performed By: #### L 100.0500, L500.2500 ####[facility] [address] [place], [address] Creatinine [Mass/Vol] 0.66 mg/dL Low 0.70-1.20 [facility] Comment on above: Performed By: #### L 100.0500, L500.2500 ####[facility] [address] [place], [address] ECRCL 138.63 ml/min Normal 50-250 [facility] Comment on above: Performed By: #### L 100.0500, L500.2500 ####[facility] [address] [place], [address] GAP 12 Normal 5-15 [facility] Comment on above: Performed By: #### L 100.0500, L500.2500 ####[facility] [address] [place], [address] GFR/1.73 sq M.predicted among non-blacks MDRD (S/P/Bld) [Vol rate/Area] 120 mL/min/{1.73_m2} Normal >60 [facility] Comment on above: Result Comment: mL/m in/1.73m2 CKD-EPI Creatinine Equation (2020) Performed By: #### L 100.0500, L500.2500 ####[facility] [address] [place], [address] Glucose [Mass/Vol] 128 mg/dL High 70-99 [facility] Comment on above: Performed By: #### L 100.0500, L500.2500 ####[facility] [address] [place], [address] Potassium [Moles/Vol] 3.9 mmol/L Normal 3.3-5.1 [facility] Comment on above: Performed By: #### L 100.0500, L500.2500 ####[facility] [address] [place], [address] Sodium [Moles/Vol] 139 mmol/L Normal 133-145 [facility] Comment on above: Performed By: #### L 100.0500, L500.2500 ####[facility] [address] [place], [address] Urea nitrogen [Mass/Vol] 8 mg/dL Normal 4-19 [facility] Comment on above: Performed By: #### L 100.0500, L500.2500 ####[facility] [address] [place], [address] Bedside Glucoseon 08-28-2025 FINGERSTICK GLU 160 mg/dL High 74-106 [facility] Comment on above: Result Comment: NANI GEMENT OF PATIENT CARE PER NURSING PROTOCOL Performed By: #### L 501.080 ####[facility] [address] [place], [address] FINGERSTICK GLU 120 mg/dL High 74-106 [facility] Comment on above: Result Comment: NANI GEMENT OF PATIENT CARE PER NURSING PROTOCOL Performed By: #### L 501.080 ####[facility] [address] [place], [address] FINGERSTICK GLU 94 mg/dL Normal 74-106 [facility] Comment on above: Result Comment: NANI GEMENT OF PATIENT CARE PER NURSING PROTOCOL Performed By: #### L 501.080 ####[facility] [address] [place], [address] CBC-Complete Blood Cnt No Di ffon 08-28-2025 Erythrocyte distribution width (RBC) [Ratio] 17.9 % High 11.6-14.6 [facility] Comment on above: Performed By: #### L 100.0500, L500.2500 ####[facility] [address] [place], [address] Hematocrit (Bld) [Volume fraction] 35.4 % Low 37-47 [facility] Comment on above: Performed By: #### L 100.0500, L500.2500 ####[facility] [address] [place], [address] Hemoglobin (Bld) [Mass/Vol] 10.8 g/dL Low 12.0-15.0 [facility] Comment on above: Performed By: #### L 100.0500, L500.2500 ####[facility] [address] [place], [address] MCH (RBC) [Entitic mass] 24.2 pg Low 27.0-32.0 [facility] Comment on above: Performed By: #### L 100.0500, L500.2500 ####[facility] [address] [place], [address] MCHC (RBC) [Mass/Vol] 30.5 g/dL Low 32-36 [facility] Comment on above: Performed By: #### L 100.0500, L500.2500 ####[facility] [address] [place], [address] MCV (RBC) [Entitic vol] 79.2 fL Low 81-99 [facility] Comment on above: Performed By: #### L 100.0500, L500.2500 ####[facility] [address] [place], [address] Platelet mean volume (Bld) [Entitic vol] 9.3 fL Normal 6.2-12.0 [facility] Comment on above: Performed By: #### L 100.0500, L500.2500 ####[facility] [address] [place], [address] Platelets (Bld) [#/Vol] 433 10*3/uL Normal 150-450 [facility] Comment on above: Performed By: #### L 100.0500, L500.2500 ####[facility] [address] [place], [address] RBC (Bld) [#/Vol] 4.47 10*6/uL Normal 4.2-5.4 [facility] Comment on above: Performed By: #### L 100.0500, L500.2500 ####[facility] [address] [place], [address] RDW SD 51.1 fl High 35.1-43.9 [facility] Comment on above: Performed By: #### L 100.0500, L500.2500 ####[facility] [address] [place], [address] WBC (Bld) [#/Vol] 13.2 10*3/uL High 4.4-11.0 [facility] Comment on above: Performed By: #### L 100.0500, L500.2500 ####[facility] [address] [place], [address] Discharge Instructionon Discharge Instruction Normal [facility] Adrenocorticotropic Hormoneo n 08-27-2025 ACTH < 1.5 Low 7.2-63.3 [facility] Comment on above: Result Comment: ACTH reference interval for samples collected between 7 and10 AM.Performed at: [address] [id number] Director: Jaime Woods PhD, Phone: [phone] Performed By: #### L 3300.1000 ####[facility] [address] [place], [address] Bedside Glucoseon 08-27-2025 FINGERSTICK GLU 103 mg/dL Normal 74-106 [facility] Comment on above: Result Comment: NANI GEMENT OF PATIENT CARE PER NURSING PROTOCOL Performed By: #### L 501.080 ####[facility] [address] [place], [address] FINGERSTICK GLU 132 mg/dL High 74-106 [facility] Comment on above: Result Comment: NANI GEMENT OF PATIENT CARE PER NURSING PROTOCOL Performed By: #### L 501.080 ####[facility] [address] [place], [address] FINGERSTICK GLU 146 mg/dL High 74-106 [facility] Comment on above: Result Comment: NANI GEMENT OF PATIENT CARE PER NURSING PROTOCOL Performed By: #### L 501.080 ####[facility] [address] [place], [address] FINGERSTICK GLU 86 mg/dL Normal 74-106 [facility] Comment on above: Result Comment: NANI GEMENT OF PATIENT CARE PER NURSING PROTOCOL Performed By: #### L 501.080 ####[facility] [address] [place], [address] CBC W/Diff, Automatedon 11-0 Absolute Lymph 2.06 X10 3/uL Normal 0.83-4.51 [facility] Comment on above: Performed By: #### L 100.0100, L500.4050 ####[facility] [address] [place], [address] Absolute Neut 11.9 X10 3/uL High 2.0-7.7 [facility] Comment on above: Performed By: #### L 100.0100, L500.4050 ####[facility] [address] [place], [address] Basophils/100 WBC (Bld) 0.2 % Normal 0-1 [facility] Comment on above: Performed By: #### L 100.0100, L500.4050 ####[facility] [address] [place], [address] Eosinophils/100 WBC (Bld) 0.1 % Normal 0-5 [facility] Comment on above: Performed By: #### L 100.0100, L500.4050 ####[facility] [address] [place], [address] Erythrocyte distribution width (RBC) [Ratio] 17.9 % High 11.6-14.6 [facility] Comment on above: Performed By: #### L 100.0100, L500.4050 ####[facility] [address] [place], [address] Hematocrit (Bld) [Volume fraction] 35.9 % Low 37-47 [facility] Comment on above: Performed By: #### L 100.0100, L500.4050 ####[facility] [address] [place], [address] Hemoglobin (Bld) [Mass/Vol] 11.2 g/dL Low 12.0-15.0 [facility] Comment on above: Performed By: #### L 100.0100, L500.4050 ####[facility] [address] [place], [address] IG% 0.600 Normal 0.0-0.9 [facility] Comment on above: Result Comment: IG% - Immature Granulocytes (promyelocytes, myelocytes andmetamyelocytes) > 1% indicates that a LEFT SHIFT is Present. Performed By: #### L 100.0100, L500.4050 ####[facility] [address] [place], [address] Lymphocytes/100 WBC (Bld) 14.1 % Low 19-41 [facility] Comment on above: Performed By: #### L 100.0100, L500.4050 ####[facility] [address] [place], [address] MCH (RBC) [Entitic mass] 24.6 pg Low 27.0-32.0 [facility] Comment on above: Performed By: #### L 100.0100, L500.4050 ####[facility] [address] [place], [address] MCHC (RBC) [Mass/Vol] 31.2 g/dL Low 32-36 [facility] Comment on above: Performed By: #### L 100.0100, L500.4050 ####[facility] [address] [place], [address] MCV (RBC) [Entitic vol] 78.7 fL Low 81-99 [facility] Comment on above: Performed By: #### L 100.0100, L500.4050 ####[facility] [address] [place], [address] Monocytes/100 WBC (Bld) 4.2 % Normal 0-10 [facility] Comment on above: Performed By: #### L 100.0100, L500.4050 ####[facility] [address] [place], [address] Neutrophils/100 WBC (Bld) 80.8 % High 47-70 [facility] Comment on above: Performed By: #### L 100.0100, L500.4050 ####[facility] [address] [place], [address] Nucleated RBC (Bld) [#/Vol] 0 10*3/uL Normal 0-5 [facility] Comment on above: Performed By: #### L 100.0100, L500.4050 ####[facility] [address] [place], [address] Platelet mean volume (Bld) [Entitic vol] 9.3 fL Normal 6.2-12.0 [facility] Comment on above: Performed By: #### L 100.0100, L500.4050 ####[facility] [address] [place], [address] Platelets (Bld) [#/Vol] 442 10*3/uL Normal 150-450 [facility] Comment on above: Performed By: #### L 100.0100, L500.4050 ####[facility] [address] [place], [address] RBC (Bld) [#/Vol] 4.56 10*6/uL Normal 4.2-5.4 [facility] Comment on above: Performed By: #### L 100.0100, L500.4050 ####[facility] [address] [place], [address] RDW SD 50.8 fl High 35.1-43.9 [facility] Comment on above: Performed By: #### L 100.0100, L500.4050 ####[facility] [address] [place], [address] WBC (Bld) [#/Vol] 14.7 10*3/uL High 4.4-11.0 [facility] Comment on above: Performed By: #### L 100.0100, L500.4050 ####[facility] [address] [place], [address] Comprehensive Metabolic Prof ilon 08-27-2025 Albumin [Mass/Vol] 3.8 g/dL Normal 3.5-5.0 [facility] Comment on above: Performed By: #### L 100.0100, L500.4050 ####[facility] [address] [place], [address] Albumin/Globulin [Mass ratio] 1.3 {ratio} Normal 0.9-2.4 [facility] Comment on above: Performed By: #### L 100.0100, L500.4050 ####[facility] [address] [place], [address] ALK PHOS 92 U/L Normal 35-104 [facility] Comment on above: Performed By: #### L 100.0100, L500.4050 ####[facility] [address] [place], [address] ALT [Catalytic activity/Vol] 18 U/L Normal <=34 [facility] Comment on above: Performed By: #### L 100.0100, L500.4050 ####[facility] [address] [place], [address] AST [Catalytic activity/Vol] 14 U/L Normal <=31 [facility] Comment on above: Performed By: #### L 100.0100, L500.4050 ####[facility] [address] [place], [address] Bilirubin [Mass/Vol] 0.51 mg/dL Normal 0.00-1.30 [facility] Comment on above: Performed By: #### L 100.0100, L500.4050 ####[facility] [address] [place], [address] BUN/CRE 8.4 RATIO Low 10-20 [facility] Comment on above: Performed By: #### L 100.0100, L500.4050 ####[facility] [address] [place], [address] Calcium [Mass/Vol] 8.7 mg/dL Normal 7.6-11.0 [facility] Comment on above: Performed By: #### L 100.0100, L500.4050 ####[facility] [address] [place], [address] Chloride [Moles/Vol] 105 mmol/L Normal 98-108 [facility] Comment on above: Performed By: #### L 100.0100, L500.4050 ####[facility] [address] [place], [address] CO2 [Moles/Vol] 19.7 mmol/L Low 21.0-32.0 [facility] Comment on above: Performed By: #### L 100.0100, L500.4050 ####[facility] [address] [place], [address] Creatinine [Mass/Vol] 0.62 mg/dL Low 0.70-1.20 [facility] Comment on above: Performed By: #### L 100.0100, L500.4050 ####[facility] [address] [place], [address] ECRCL 147.57 ml/min Normal 50-250 [facility] Comment on above: Performed By: #### L 100.0100, L500.4050 ####[facility] [address] [place], [address] GAP 13 Normal 5-15 [facility] Comment on above: Performed By: #### L 100.0100, L500.4050 ####[facility] [address] [place], [address] GFR/1.73 sq M.predicted among non-blacks MDRD (S/P/Bld) [Vol rate/Area] 121 mL/min/{1.73_m2} Normal >60 [facility] Comment on above: Result Comment: mL/m in/1.73m2 CKD-EPI Creatinine Equation (2020) Performed By: #### L 100.0100, L500.4050 ####[facility] [address] [place], [address] Globulin (S) [Mass/Vol] 2.9 g/dL Normal 2.2-4.2 [facility] Comment on above: Performed By: #### L 100.0100, L500.4050 ####[facility] [address] [place], [address] Glucose [Mass/Vol] 118 mg/dL High 70-99 [facility] Comment on above: Performed By: #### L 100.0100, L500.4050 ####[facility] [address] [place], [address] Potassium [Moles/Vol] 3.8 mmol/L Normal 3.3-5.1 [facility] Comment on above: Performed By: #### L 100.0100, L500.4050 ####[facility] [address] [place], [address] Sodium [Moles/Vol] 137 mmol/L Normal 133-145 [facility] Comment on above: Performed By: #### L 100.0100, L500.4050 ####[facility] [address] [place], [address] T PROT 6.7 g/dL Normal 5.9-8.4 [facility] Comment on above: Performed By: #### L 100.0100, L500.4050 ####[facility] [address] [place], [address] Urea nitrogen [Mass/Vol] 5 mg/dL Normal 4-19 [facility] Comment on above: Performed By: #### L 100.0100, L500.4050 ####[facility] [address] [place], [address] T4 Free Directon 08-27-2025 T4 FREE DIRECT 1.00 ng/dL Normal 0.76-1.46 [facility] Comment on above: Order Comment: Comme nts: Add onto previous labs if possibleAdd onto previous labs if possible Performed By: #### L 501.9520, L506.0400 ####[facility] [address] [place], [address] Thyroid Stim Hormone (TSH)on 08-27-2025 TSH 0.536 uIU/mL Normal 0.300-4.200 [facility] Comment on above: Order Comment: Comme nts: Add onto previous labs if possible Performed By: #### L 501.9520, L506.0400 ####[facility] [address] [place], [address] Basic Metabolic Profile (BMP )on 08-26-2025 BUN/CRE 10.2 RATIO Normal 10-20 [facility] Comment on above: Performed By: #### L 500.2500, L500.3400, L100.0100 ####[facility] [address] [place], [address] Calcium [Mass/Vol] 9.1 mg/dL Normal 7.6-11.0 [facility] Comment on above: Performed By: #### L 500.2500, L500.3400, L100.0100 ####[facility] [address] [place], [address] Chloride [Moles/Vol] 103 mmol/L Normal 98-108 [facility] Comment on above: Performed By: #### L 500.2500, L500.3400, L100.0100 ####[facility] [address] [place], [address] CO2 [Moles/Vol] 25.9 mmol/L Normal 21.0-32.0 [facility] Comment on above: Performed By: #### L 500.2500, L500.3400, L100.0100 ####[facility] [address] [place], [address] Creatinine [Mass/Vol] 0.92 mg/dL Normal 0.70-1.20 [facility] Comment on above: Performed By: #### L 500.2500, L500.3400, L100.0100 ####[facility] [address] [place], [address] ECRCL 99.95 ml/min Normal 50-250 [facility] Comment on above: Performed By: #### L 500.2500, L500.3400, L100.0100 ####[facility] [address] [place], [address] GAP 10 Normal 5-15 [facility] Comment on above: Performed By: #### L 500.2500, L500.3400, L100.0100 ####[facility] [address] [place], [address] GFR/1.73 sq M.predicted among non-blacks MDRD (S/P/Bld) [Vol rate/Area] 85 mL/min/{1.73_m2} Normal >60 [facility] Comment on above: Result Comment: mL/m in/1.73m2 CKD-EPI Creatinine Equation (2020) Performed By: #### L 500.2500, L500.3400, L100.0100 ####[facility] [address] [place], [address] Glucose [Mass/Vol] 71 mg/dL Normal 70-99 [facility] Comment on above: Performed By: #### L 500.2500, L500.3400, L100.0100 ####[facility] [address] [place], [address] Potassium [Moles/Vol] 3.6 mmol/L Normal 3.3-5.1 [facility] Comment on above: Performed By: #### L 500.2500, L500.3400, L100.0100 ####[facility] [address] [place], [address] Sodium [Moles/Vol] 139 mmol/L Normal 133-145 [facility] Comment on above: Performed By: #### L 500.2500, L500.3400, L100.0100 ####[facility] [address] [place], [address] Urea nitrogen [Mass/Vol] 9 mg/dL Normal 4-19 [facility] Comment on above: Performed By: #### L 500.2500, L500.3400, L100.0100 ####[facility] [address] [place], [address] Bedside Glucoseon 08-26-2025 FINGERSTICK GLU 109 mg/dL High 74-106 [facility] Comment on above: Result Comment: NANI GEMENT OF PATIENT CARE PER NURSING PROTOCOL Performed By: #### L 501.080 ####[facility] [address] [place], [address] FINGERSTICK GLU 124 mg/dL High 74-106 [facility] Comment on above: Result Comment: NANI GEMENT OF PATIENT CARE PER NURSING PROTOCOL Performed By: #### L 501.080 ####[facility] [address] [place], [address] CBC W/Diff, Automatedon REACTIVE LYMPH 1+ Normal [facility] Comment on above: Performed By: #### L 500.2500, L500.3400, L100.0100 ####[facility] [address] [place], [address] SMEAR COMMENT SCANNED Normal [facility] Comment on above: Performed By: #### L 500.2500, L500.3400, L100.0100 ####[facility] [address] [place], [address] Emergency Department Summary on 08-26-2025 Emergency Department Summary Normal [facility] H AND P Exam - Hospitaliston 08-26-2025 H&P Exam - Hospitalist Normal [facility] L509.6001on 08-26-2025 CORTISOL 0.14 ug/dL Low 6.02-18.40 [facility] Comment on above: Performed By: #### L 509.6001 ####[facility] [address] [place], [address] Liver Profileon 08-26-2025 Albumin [Mass/Vol] 4.0 g/dL Normal 3.5-5.0 [facility] Comment on above: Performed By: #### L 500.2500, L500.3400, L100.0100 ####[facility] [address] [place], [address] ALK PHOS 83 U/L Normal 35-104 [facility] Comment on above: Performed By: #### L 500.2500, L500.3400, L100.0100 ####[facility] [address] [place], [address] ALT [Catalytic activity/Vol] 22 U/L Normal <=34 [facility] Comment on above: Performed By: #### L 500.2500, L500.3400, L100.0100 ####[facility] [address] [place], [address] AST [Catalytic activity/Vol] 17 U/L Normal <=31 [facility] Comment on above: Performed By: #### L 500.2500, L500.3400, L100.0100 ####[facility] [address] [place], [address] Bilirubin [Mass/Vol] 0.59 mg/dL Normal 0.00-1.30 [facility] Comment on above: Performed By: #### L 500.2500, L500.3400, L100.0100 ####[facility] [address] [place], [address] Bilirubin.direct [Mass/Vol] 0.22 mg/dL Normal 0.00-0.30 [facility] Comment on above: Performed By: #### L 500.2500, L500.3400, L100.0100 ####[facility] [address] [place], [address] Globulin (S) [Mass/Vol] 3.1 g/dL Normal 2.2-4.2 [facility] Comment on above: Performed By: #### L 500.2500, L500.3400, L100.0100 ####[facility] [address] [place], [address] T PROT 7.1 g/dL Normal 5.9-8.4 [facility] Comment on above: Performed By: #### L 500.2500, L500.3400, L100.0100 ####[facility] [address] [place], [address] Urinalysis, Completeon 08-26 EPI,SQUAMOUS 0-5 SEEN Normal 5-10 [facility] Comment on above: Order Comment: CLEAN CATCH Performed By: #### L 400.0001 ####[facility] [address] [place], [address] BACTERIA 0 SEEN Normal None Seen [facility] Comment on above: Order Comment: CLEAN CATCH Performed By: #### L 400.0001 ####[facility] [address] [place], [address] Mucus Ql (Urine sed) 0 SEEN Normal [facility] Comment on above: Order Comment: CLEAN CATCH Performed By: #### L 400.0001 ####[facility] [address] [place], [address] RBC 0 SEEN Normal 0-5 [facility] Comment on above: Order Comment: CLEAN CATCH Performed By: #### L 400.0001 ####[facility] [address] [place], [address] WBC 0 SEEN Normal 0-5 [facility] Comment on above: Order Comment: CLEAN CATCH Performed By: #### L 400.0001 ####[facility] [address] [place], [address] Absolute lymphocyte countOrd ered By: Mode Christianson on 07-22-2025 Lymphocytes Auto (Unsp spec) [#/Vol] 2.69 10*3/uL 0.83-4.51 [facility] Absolute neutrophil countOrd ered By: Mode Christianson on 07-22-2025 Neutrophils (Bld) [#/Vol] 8.5 10*3/uL High 2.0-7.7 [facility] Anion gap in Serum or Plasma Ordered By: Mode Christianson on 07-22-2025 Anion gap [Moles/Vol] 13 mmol/L 5-15 [facility] Automated lymphocyte count a s percentage of total leukocytesOrdered By: Mode Christianson on 07-22-2025 Lymphocytes/100 WBC Auto (Unsp spec) 21.8 % 19-41 [facility] BUN/creatinine ratioOrdered By: Mode Christianson on 07-22-2025 Urea nitrogen/Creatinine [Mass ratio] 9.1 mg/mg Low 10-20 [facility] Basophil percentageOrdered B y: Mode Christianson on 07-22-2025 Basophils/100 WBC (Bld) 0.2 % 0-1 [facility] Bilirubin, totalOrdered By: Mode Christianson on 07-22-2025 Bilirubin [Mass/Vol] 0.21 mg/dL 0.00-1.30 [facility] CBC W/Diff, Automatedon 06-25 0-2024 Absolute Lymph 2.69 X10 3/uL Normal 0.83-4.51 [facility] Comment on above: Performed By: #### L 500.4050, L100.0100 ####[facility] [address] [place], [address] Absolute Neut 8.5 X10 3/uL High 2.0-7.7 [facility] Comment on above: Performed By: #### L 500.4050, L100.0100 ####[facility] [address] [place], [address] Basophils/100 WBC (Bld) 0.2 % Normal 0-1 [facility] Comment on above: Performed By: #### L 500.4050, L100.0100 ####[facility] [address] [place], [address] Eosinophils/100 WBC (Bld) 0.0 % Normal 0-5 [facility] Comment on above: Performed By: #### L 500.4050, L100.0100 ####[facility] [address] [place], [address] Erythrocyte distribution width (RBC) [Ratio] 17.0 % High 11.6-14.6 [facility] Comment on above: Performed By: #### L 500.4050, L100.0100 ####[facility] [address] [place], [address] Hematocrit (Bld) [Volume fraction] 35.4 % Low 37-47 [facility] Comment on above: Performed By: #### L 500.4050, L100.0100 ####[facility] [address] [place], [address] Hemoglobin (Bld) [Mass/Vol] 10.7 g/dL Low 12.0-15.0 [facility] Comment on above: Performed By: #### L 500.4050, L100.0100 ####[facility] [address] [place], [address] IG% 1.600 High 0.0-0.9 [facility] Comment on above: Result Comment: IG% - Immature Granulocytes (promyelocytes, myelocytes andmetamyelocytes) > 1% indicates that a LEFT SHIFT is Present. Performed By: #### L 500.4050, L100.0100 ####[facility] [address] [place], [address] Lymphocytes/100 WBC (Bld) 21.8 % Normal 19-41 [facility] Comment on above: Performed By: #### L 500.4050, L100.0100 ####[facility] [address] [place], [address] MCH (RBC) [Entitic mass] 24.3 pg Low 27.0-32.0 [facility] Comment on above: Performed By: #### L 500.4050, L100.0100 ####[facility] [address] [place], [address] MCHC (RBC) [Mass/Vol] 30.2 g/dL Low 32-36 [facility] Comment on above: Performed By: #### L 500.4050, L100.0100 ####[facility] [address] [place], [address] MCV (RBC) [Entitic vol] 80.3 fL Low 81-99 [facility] Comment on above: Performed By: #### L 500.4050, L100.0100 ####[facility] [address] [place], [address] Monocytes/100 WBC (Bld) 7.5 % Normal 0-10 [facility] Comment on above: Performed By: #### L 500.4050, L100.0100 ####[facility] [address] [place], [address] Neutrophils/100 WBC (Bld) 68.9 % Normal 47-70 [facility] Comment on above: Performed By: #### L 500.4050, L100.0100 ####[facility] [address] [place], [address] Nucleated RBC (Bld) [#/Vol] 0 10*3/uL Normal 0-5 [facility] Comment on above: Performed By: #### L 500.4050, L100.0100 ####[facility] [address] [place], [address] Platelet mean volume (Bld) [Entitic vol] 9.5 fL Normal 6.2-12.0 [facility] Comment on above: Performed By: #### L 500.4050, L100.0100 ####[facility] [address] [place], [address] Platelets (Bld) [#/Vol] 452 10*3/uL High 150-450 [facility] Comment on above: Performed By: #### L 500.4050, L100.0100 ####[facility] [address] [place], [address] RBC (Bld) [#/Vol] 4.41 10*6/uL Normal 4.2-5.4 [facility] Comment on above: Performed By: #### L 500.4050, L100.0100 ####[facility] [address] [place], [address] RDW SD 48.9 fl High 35.1-43.9 [facility] Comment on above: Performed By: #### L 500.4050, L100.0100 ####[facility] [address] [place], [address] WBC (Bld) [#/Vol] 12.3 10*3/uL High 4.4-11.0 [facility] Comment on above: Performed By: #### L 500.4050, L100.0100 ####[facility] [address] [place], [address] Carbon dioxide, total [Moles /volume] in Central venous bloodOrdered By: Mode Christianson on 07-22-2025 CO2 [Moles/Vol] 23.1 mmol/L 21.0-32.0 [facility] Chloride assayOrdered By: Erin Christianson on 07-22-2025 Chloride [Moles/Vol] 103 mmol/L 98-108 [facility] Comprehensive Metabolic Prof ilon 07-22-2025 Albumin [Mass/Vol] 3.5 g/dL Normal 3.5-5.0 [facility] Comment on above: Performed By: #### L 500.4050, L100.0100 ####[facility] [address] [place], [address] Albumin/Globulin [Mass ratio] 1.2 {ratio} Normal 0.9-2.4 [facility] Comment on above: Performed By: #### L 500.4050, L100.0100 ####[facility] [address] [place], [address] ALK PHOS 148 U/L High 35-104 [facility] Comment on above: Performed By: #### L 500.4050, L100.0100 ####[facility] [address] [place], [address] ALT [Catalytic activity/Vol] 346 U/L High <=34 [facility] Comment on above: Performed By: #### L 500.4050, L100.0100 ####[facility] [address] [place], [address] AST [Catalytic activity/Vol] 81 U/L High <=31 [facility] Comment on above: Performed By: #### L 500.4050, L100.0100 ####[facility] [address] [place], [address] Bilirubin [Mass/Vol] 0.21 mg/dL Normal 0.00-1.30 [facility] Comment on above: Performed By: #### L 500.4050, L100.0100 ####[facility] [address] [place], [address] BUN/CRE 9.1 RATIO Low 10-20 [facility] Comment on above: Performed By: #### L 500.4050, L100.0100 ####[facility] [address] [place], [address] Calcium [Mass/Vol] 8.8 mg/dL Normal 7.6-11.0 [facility] Comment on above: Performed By: #### L 500.4050, L100.0100 ####[facility] [address] [place], [address] Chloride [Moles/Vol] 103 mmol/L Normal 98-108 [facility] Comment on above: Performed By: #### L 500.4050, L100.0100 ####[facility] [address] [place], [address] CO2 [Moles/Vol] 23.1 mmol/L Normal 21.0-32.0 [facility] Comment on above: Performed By: #### L 500.4050, L100.0100 ####[facility] [address] [place], [address] Creatinine [Mass/Vol] 0.72 mg/dL Normal 0.70-1.20 [facility] Comment on above: Performed By: #### L 500.4050, L100.0100 ####[facility] [address] [place], [address] ECRCL 122.90 ml/min Normal 50-250 [facility] Comment on above: Performed By: #### L 500.4050, L100.0100 ####[facility] [address] [place], [address] GAP 13 Normal 5-15 [facility] Comment on above: Performed By: #### L 500.4050, L100.0100 ####[facility] [address] [place], [address] GFR/1.73 sq M.predicted among non-blacks MDRD (S/P/Bld) [Vol rate/Area] 115 mL/min/{1.73_m2} Normal >60 [facility] Comment on above: Result Comment: mL/m in/1.73m2 CKD-EPI Creatinine Equation (2020) Performed By: #### L 500.4050, L100.0100 ####[facility] [address] [place], [address] Globulin (S) [Mass/Vol] 3.0 g/dL Normal 2.2-4.2 [facility] Comment on above: Performed By: #### L 500.4050, L100.0100 ####[facility] [address] [place], [address] Glucose [Mass/Vol] 109 mg/dL High 70-99 [facility] Comment on above: Performed By: #### L 500.4050, L100.0100 ####[facility] [address] [place], [address] Potassium [Moles/Vol] 4.0 mmol/L Normal 3.3-5.1 [facility] Comment on above: Performed By: #### L 500.4050, L100.0100 ####[facility] [address] [place], [address] Sodium [Moles/Vol] 140 mmol/L Normal 133-145 [facility] Comment on above: Performed By: #### L 500.4050, L100.0100 ####[facility] [address] [place], [address] T PROT 6.4 g/dL Normal 5.9-8.4 [facility] Comment on above: Performed By: #### L 500.4050, L100.0100 ####[facility] [address] [place], [address] Urea nitrogen [Mass/Vol] 7 mg/dL Normal 4-19 [facility] Comment on above: Performed By: #### L 500.4050, L100.0100 ####[facility] [address] [place], [address] Discharge Instructionon 06-25 Discharge Instruction Normal [facility] ED MED ADMINISTRATION DETAIL on 07-22-2025 ED MED ADMINISTRATION DETAIL Normal [facility] ED NURSES CLINICAL NOTEon ED NURSES CLINICAL NOTE Normal [facility] ED ORDER SHEET (CPOE ONLY)on 07-22-2025 ED ORDER SHEET (CPOE ONLY) Normal [facility] ED PHYSICIAN CLINICAL REPORT on 07-22-2025 ED PHYSICIAN CLINICAL REPORT Normal [facility] ED SUPER BILLon 07-22-2025 ED SUPER BILL Normal [facility] ED VISIT SUMMARYon ED VISIT SUMMARY Normal [facility] ED VITALS FLOW SHEETon 07-22 ED VITALS FLOW SHEET Normal [facility] Eosinophil percentageOrdered By: Mode Christianson on 07-22-2025 Eosinophils/100 WBC (Bld) 0.0 % 0-5 [facility] Erythrocyte distribution wid th ratioOrdered By: Mode Christianson on 07-22-2025 Erythrocyte distribution width (RBC) [Ratio] 17.0 % High 11.6-14.6 [facility] Erythrocyte distribution wid th standard deviationOrdered By: Mode Christianson on 07-22-2025 Erythrocyte distribution width (RBC) [Ratio] 48.9 fl High 35.1-43.9 [facility] Glomerular filtration rate ( GFR) estimation/1.73 sq m using serum, plasma, or whole bOrdered By: Mode Christianson on 07-22-2025 GFR/1.73 sq M.predicted among non-blacks MDRD (S/P/Bld) [Vol rate/Area] 115 mL/min/{1.73_m2} >60 [facility] Comment on above: mL/min/1.73m2 CKD-EP I Creatinine Equation (2020) Hematocrit Auto (Bld) [Volum e fraction]Ordered By: Mode Christianson on 07-22-2025 Hematocrit (Bld) [Volume fraction] 35.4 % Low 37-47 [facility] Hemoglobin measurementOrdere d By: Mode Christianson on 07-22-2025 Hemoglobin (Bld) [Mass/Vol] 10.7 g/dL Low 12.0-15.0 [facility] Immature granulocytes/100 WB C Auto (Bld)Ordered By: Mode Chrisitanson on 07-22-2025 Immature granulocytes/100 WBC (Bld) 1.600 % High 0.0-0.9 [facility] Comment on above: IG% - Immature Granu locytes (promyelocytes, myelocytes and metamyelocytes) > 1% indicates that a LEFT SHIFT is Present. Laboratory - Chemistry and C hemistry - challengeOrdered By: Mode Christianson on 07-22-2025 AST [Catalytic activity/Vol] 81 U/L High <32 [facility] MCV (mean corpuscular volume ) determinationOrdered By: Mode Christianson on 07-22-2025 MCV (RBC) [Entitic vol] 80.3 fL Low 81-99 [facility] Mean corpuscular hemoglobin (MCH) determinationOrdered By: Mode Christianson on 07-22-2025 MCH (RBC) [Entitic mass] 24.3 pg Low 27.0-32.0 [facility] Mean corpuscular hemoglobin concentration (MCHC) determinationOrdered By: Mode Christianson on 07-22-2025 MCHC (RBC) [Mass/Vol] 30.2 g/dL Low 32-36 [facility] Mean platelet volume determi nationOrdered By: Mode Christianson on 07-22-2025 Platelet mean volume (Bld) [Entitic vol] 9.5 fL 6.2-12.0 [facility] Monocyte percentageOrdered B y: Mode Christianson on 07-22-2025 Monocytes/100 WBC (Bld) 7.5 % 0-10 [facility] Neutrophil percentageOrdered By: Mode Christianson on 07-22-2025 Neutrophils/100 WBC (Bld) 68.9 % 47-70 [facility] Nucleated red blood cell per centageOrdered By: Mode Christianson on 07-22-2025 Nucleated RBC/100 WBC (Bld) [Ratio] 0 % 0-5 [facility] Platelet countOrdered By: Erin Christianson on 07-22-2025 Platelets (Bld) [#/Vol] 452 10*3/uL High 150-450 [facility] Potassium measurement (mass/ volume)Ordered By: Mode Christianson on 07-22-2025 Potassium (Unsp spec) [Mass/Vol] 4.0 mmol/L 3.3-5.1 [facility] RBC Auto (Bld) [#/Vol]Ordere d By: Mdoe Christianson on 07-22-2025 RBC (Bld) [#/Vol] 4.41 10*6/uL 4.2-5.4 [facility] Serum creatinine measurement (mass/volume)Ordered By: Mode Christianson on 07-22-2025 Creatinine [Mass/Vol] 0.72 mg/dL 0.70-1.20 [facility] Serum globulin measurementOr dered By: Mode Christianson on 07-22-2025 Globulin (S) [Mass/Vol] 3.0 g/dL 2.2-4.2 [facility] Serum glucose measurement (m ass/volume)Ordered By: Mode Christianson on 07-22-2025 Glucose [Mass/Vol] 109 mg/dL High 70-99 [facility] Serum or plasma alanine hammer otransferase (ALT) measurementOrdered By: Mode Christianson on 07-22-2025 ALT [Catalytic activity/Vol] 346 U/L High <35 [facility] Serum or plasma albumin evert urement (mass/volume)Ordered By: Mode Christianson on 07-22-2025 Albumin [Mass/Vol] 3.5 g/dL 3.5-5.0 [facility] Serum or plasma albumin/glob ulin mass ratioOrdered By: Mode Christianson on 07-22-2025 Albumin/Globulin [Mass ratio] 1.2 {ratio} 0.9-2.4 [facility] Serum or plasma alkaline kelsy sphatase measurementOrdered By: Mode Christianson on 07-22-2025 ALP [Catalytic activity/Vol] 148 U/L High 35-104 [facility] Serum or plasma calcium evert urement (mass/volume)Ordered By: Mode Christianson on 07-22-2025 Calcium [Mass/Vol] 8.8 mg/dL 7.6-11.0 [facility] Serum or plasma urea nitroge n measurement (mass/volume)Ordered By: Mode Christianson on 07-22-2025 Urea nitrogen [Mass/Vol] 7 mg/dL 4-19 [facility] Sodium levelOrdered By: John Christianson on 07-22-2025 Sodium [Moles/Vol] 140 mmol/L 133-145 [facility] Total proteinOrdered By: Scar Christianson on 07-22-2025 Protein [Mass/Vol] 6.4 g/dL 5.9-8.4 [facility] White blood cell (WBC) count Ordered By: Mode Christianson on 07-22-2025 WBC (Bld) [#/Vol] 12.3 10*3/uL High 4.4-11.0 [facility] CBC W/Diff, Automatedon 06-24 Absolute Lymph 1.99 X10 3/uL Normal 0.83-4.51 [facility] Comment on above: Performed By: #### L 500.4050, L100.0100 ####[facility] [address] [place], [place], [id number] Absolute Neut 9.9 X10 3/uL High 2.0-7.7 [facility] Comment on above: Performed By: #### L 500.4050, L100.0100 ####[facility] [address] [place], [address] Basophils/100 WBC (Bld) 0.1 % Normal 0-1 [facility] Comment on above: Performed By: #### L 500.4050, L100.0100 ####[facility] [address] [place], [address] Eosinophils/100 WBC (Bld) 0.0 % Normal 0-5 [facility] Comment on above: Performed By: #### L 500.4050, L100.0100 ####[facility] [address] [place], [address] Erythrocyte distribution width (RBC) [Ratio] 17.0 % High 11.6-14.6 [facility] Comment on above: Performed By: #### L 500.4050, L100.0100 ####[facility] [address] [place], [address] Hematocrit (Bld) [Volume fraction] 35.5 % Low 37-47 [facility] Comment on above: Performed By: #### L 500.4050, L100.0100 ####[facility] [address] [place], [address] Hemoglobin (Bld) [Mass/Vol] 10.8 g/dL Low 12.0-15.0 [facility] Comment on above: Performed By: #### L 500.4050, L100.0100 ####[facility] [address] [place], [address] IG% 0.700 Normal 0.0-0.9 [facility] Comment on above: Result Comment: IG% - Immature Granulocytes (promyelocytes, myelocytes andmetamyelocytes) > 1% indicates that a LEFT SHIFT is Present. Performed By: #### L 500.4050, L100.0100 ####[facility] [address] [place], [address] Lymphocytes/100 WBC (Bld) 15.5 % Low 19-41 [facility] Comment on above: Performed By: #### L 500.4050, L100.0100 ####[facility] [address] [place], [address] MCH (RBC) [Entitic mass] 24.1 pg Low 27.0-32.0 [facility] Comment on above: Performed By: #### L 500.4050, L100.0100 ####[facility] [address] [place], [address] MCHC (RBC) [Mass/Vol] 30.4 g/dL Low 32-36 [facility] Comment on above: Performed By: #### L 500.4050, L100.0100 ####[facility] [address] [place], [address] MCV (RBC) [Entitic vol] 79.2 fL Low 81-99 [facility] Comment on above: Performed By: #### L 500.4050, L100.0100 ####[facility] [address] [place], [address] Monocytes/100 WBC (Bld) 6.7 % Normal 0-10 [facility] Comment on above: Performed By: #### L 500.4050, L100.0100 ####[facility] [address] [place], [address] Neutrophils/100 WBC (Bld) 77.0 % High 47-70 [facility] Comment on above: Performed By: #### L 500.4050, L100.0100 ####[facility] [address] [place], [address] Nucleated RBC (Bld) [#/Vol] 0 10*3/uL Normal 0-5 [facility] Comment on above: Performed By: #### L 500.4050, L100.0100 ####[facility] [address] [place], [address] Platelet mean volume (Bld) [Entitic vol] 9.3 fL Normal 6.2-12.0 [facility] Comment on above: Performed By: #### L 500.4050, L100.0100 ####[facility] [address] [place], [address] Platelets (Bld) [#/Vol] 465 10*3/uL High 150-450 [facility] Comment on above: Performed By: #### L 500.4050, L100.0100 ####[facility] [address] [place], [address] RBC (Bld) [#/Vol] 4.48 10*6/uL Normal 4.2-5.4 [facility] Comment on above: Performed By: #### L 500.4050, L100.0100 ####[facility] [address] [place], [address] RDW SD 48.5 fl High 35.1-43.9 [facility] Comment on above: Performed By: #### L 500.4050, L100.0100 ####[facility] [address] [place], [address] WBC (Bld) [#/Vol] 12.9 10*3/uL High 4.4-11.0 [facility] Comment on above: Performed By: #### L 500.4050, L100.0100 ####[facility] [address] [place], [address] Comprehensive Metabolic Prof ilon 07-21-2025 Albumin [Mass/Vol] 3.7 g/dL Normal 3.5-5.0 [facility] Comment on above: Performed By: #### L 500.4050, L100.0100 ####[facility] [address] [place], [address] Albumin/Globulin [Mass ratio] 1.3 {ratio} Normal 0.9-2.4 [facility] Comment on above: Performed By: #### L 500.4050, L100.0100 ####[facility] [address] [place], [address] ALK PHOS 180 U/L High 35-104 [facility] Comment on above: Performed By: #### L 500.4050, L100.0100 ####[facility] [address] [place], [address] ALT [Catalytic activity/Vol] 550 U/L High <=34 [facility] Comment on above: Performed By: #### L 500.4050, L100.0100 ####[facility] [address] [place], [address] AST [Catalytic activity/Vol] 328 U/L High <=31 [facility] Comment on above: Performed By: #### L 500.4050, L100.0100 ####[facility] [address] [place], [address] Bilirubin [Mass/Vol] 0.49 mg/dL Normal 0.00-1.30 [facility] Comment on above: Performed By: #### L 500.4050, L100.0100 ####[facility] [address] [place], [address] BUN/CRE 11.4 RATIO Normal 10-20 [facility] Comment on above: Performed By: #### L 500.4050, L100.0100 ####[facility] [address] [place], [address] Calcium [Mass/Vol] 8.6 mg/dL Normal 7.6-11.0 [facility] Comment on above: Performed By: #### L 500.4050, L100.0100 ####[facility] [address] [place], [address] Chloride [Moles/Vol] 105 mmol/L Normal 98-108 [facility] Comment on above: Performed By: #### L 500.4050, L100.0100 ####[facility] [address] [place], [address] CO2 [Moles/Vol] 23.5 mmol/L Normal 21.0-32.0 [facility] Comment on above: Performed By: #### L 500.4050, L100.0100 ####[facility] [address] [place], [address] Creatinine [Mass/Vol] 0.59 mg/dL Low 0.70-1.20 [facility] Comment on above: Performed By: #### L 500.4050, L100.0100 ####[facility] [address] [place], [address] ECRCL 149.97 ml/min Normal 50-250 [facility] Comment on above: Performed By: #### L 500.4050, L100.0100 ####[facility] [address] [place], [address] GAP 12 Normal 5-15 [facility] Comment on above: Performed By: #### L 500.4050, L100.0100 ####[facility] [address] [place], [address] GFR/1.73 sq M.predicted among non-blacks MDRD (S/P/Bld) [Vol rate/Area] 123 mL/min/{1.73_m2} Normal >60 [facility] Comment on above: Result Comment: mL/m in/1.73m2 CKD-EPI Creatinine Equation (2020) Performed By: #### L 500.4050, L100.0100 ####[facility] [address] [place], [address] Globulin (S) [Mass/Vol] 3.0 g/dL Normal 2.2-4.2 [facility] Comment on above: Performed By: #### L 500.4050, L100.0100 ####[facility] [address] [place], [address] Glucose [Mass/Vol] 113 mg/dL High 70-99 [facility] Comment on above: Performed By: #### L 500.4050, L100.0100 ####[facility] [address] [place], [address] Potassium [Moles/Vol] 3.9 mmol/L Normal 3.3-5.1 [facility] Comment on above: Performed By: #### L 500.4050, L100.0100 ####[facility] [address] [place], [address] Sodium [Moles/Vol] 141 mmol/L Normal 133-145 [facility] Comment on above: Performed By: #### L 500.4050, L100.0100 ####[facility] [address] [place], [address] T PROT 6.7 g/dL Normal 5.9-8.4 [facility] Comment on above: Performed By: #### L 500.4050, L100.0100 ####[facility] [address] [place], [address] Urea nitrogen [Mass/Vol] 7 mg/dL Normal 4-19 [facility] Comment on above: Performed By: #### L 500.4050, L100.0100 ####[facility] [address] [place], [address] Bedside Glucoseon 07-20-2025 FINGERSTICK GLU 147 mg/dL High 74-106 [facility] Comment on above: Result Comment: NANI TREVIÑO OF PATIENT CARE PER NURSING PROTOCOL Performed By: #### L 501.080 ####[facility] [address] [place], [address] Bilirubin Test strip Ql (U)O rdered By: Herberth Spear on 07-20-2025 Bilirubin Ql (U) Negative Negative [facility] CBC W/Diff, Automatedon 06-24 Absolute Lymph 3.34 X10 3/uL Normal 0.83-4.51 [facility] Comment on above: Performed By: #### L 100.0100, L700.6800 ####[facility] [address] [place], [address] Absolute Neut 10.0 X10 3/uL High 2.0-7.7 [facility] Comment on above: Performed By: #### L 100.0100, L700.6800 ####[facility] [address] [place], [address] Basophils/100 WBC (Bld) 0.2 % Normal 0-1 [facility] Comment on above: Performed By: #### L 100.0100, L700.6800 ####[facility] [address] [place], [address] Eosinophils/100 WBC (Bld) 0.0 % Normal 0-5 [facility] Comment on above: Performed By: #### L 100.0100, L700.6800 ####[facility] [address] [place], [address] Erythrocyte distribution width (RBC) [Ratio] 16.8 % High 11.6-14.6 [facility] Comment on above: Performed By: #### L 100.0100, L700.6800 ####[facility] [address] [place], [address] Hematocrit (Bld) [Volume fraction] 37.3 % Normal 37-47 [facility] Comment on above: Performed By: #### L 100.0100, L700.6800 ####[facility] [address] [place], [address] Hemoglobin (Bld) [Mass/Vol] 12.0 g/dL Normal 12.0-15.0 [facility] Comment on above: Performed By: #### L 100.0100, L700.6800 ####[facility] [address] [place], [address] IG% 2.000 High 0.0-0.9 [facility] Comment on above: Result Comment: IG% - Immature Granulocytes (promyelocytes, myelocytes andmetamyelocytes) > 1% indicates that a LEFT SHIFT is Present. Performed By: #### L 100.0100, L700.6800 ####[facility] [address] [place], [address] Lymphocytes/100 WBC (Bld) 22.7 % Normal 19-41 [facility] Comment on above: Performed By: #### L 100.0100, L700.6800 ####[facility] [address] [place], [address] MCH (RBC) [Entitic mass] 24.5 pg Low 27.0-32.0 [facility] Comment on above: Performed By: #### L 100.0100, L700.6800 ####[facility] [address] [place], [address] MCHC (RBC) [Mass/Vol] 32.2 g/dL Normal 32-36 [facility] Comment on above: Performed By: #### L 100.0100, L700.6800 ####[facility] [address] [place], [address] MCV (RBC) [Entitic vol] 76.3 fL Low 81-99 [facility] Comment on above: Performed By: #### L 100.0100, L700.6800 ####[facility] [address] [place], [address] Monocytes/100 WBC (Bld) 7.2 % Normal 0-10 [facility] Comment on above: Performed By: #### L 100.0100, L700.6800 ####[facility] [address] [place], [address] Neutrophils/100 WBC (Bld) 67.9 % Normal 47-70 [facility] Comment on above: Performed By: #### L 100.0100, L700.6800 ####[facility] [address] [place], [address] Nucleated RBC (Bld) [#/Vol] 0 10*3/uL Normal 0-5 [facility] Comment on above: Performed By: #### L 100.0100, L700.6800 ####[facility] [address] [place], [address] Platelet mean volume (Bld) [Entitic vol] 9.1 fL Normal 6.2-12.0 [facility] Comment on above: Performed By: #### L 100.0100, L700.6800 ####[facility] [address] [place], [address] Platelets (Bld) [#/Vol] 445 10*3/uL Normal 150-450 [facility] Comment on above: Performed By: #### L 100.0100, L700.6800 ####[facility] [address] [place], [address] RBC (Bld) [#/Vol] 4.89 10*6/uL Normal 4.2-5.4 [facility] Comment on above: Performed By: #### L 100.0100, L700.6800 ####[facility] [address] [place], [address] RDW SD 45.6 fl High 35.1-43.9 [facility] Comment on above: Performed By: #### L 100.0100, L700.6800 ####[facility] [address] [place], [address] WBC (Bld) [#/Vol] 14.7 10*3/uL High 4.4-11.0 [facility] Comment on above: Performed By: #### L 100.0100, L700.6800 ####[facility] [address] [place], [address] CK [CCL]on 07-20-2025 CK [Catalytic activity/Vol] 46 U/L Normal 42-196 [facility] Comment on above: Result Comment: [facility] [address] [place], [place] [address]Yxuxkj Francisco KERR [id number] Performed By: #### 2 33038 ####[facility],[address] [place] [address] Comprehensive Metabolic Prof ilon 07-20-2025 Albumin [Mass/Vol] 4.1 g/dL Normal 3.5-5.0 [facility] Comment on above: Performed By: #### L 509.6001, L500.4050 ####[facility] [address] [place], [address] Albumin/Globulin [Mass ratio] 1.2 {ratio} Normal 0.9-2.4 [facility] Comment on above: Performed By: #### L 509.6001, L500.4050 ####[facility] [address] [place], [address] ALK PHOS 177 U/L High 35-104 [facility] Comment on above: Performed By: #### L 509.6001, L500.4050 ####[facility] [address] [place], [address] ALT [Catalytic activity/Vol] 502 U/L High <=34 [facility] Comment on above: Performed By: #### L 509.6001, L500.4050 ####[facility] [address] [place], [address] AST [Catalytic activity/Vol] 288 U/L High <=31 [facility] Comment on above: Performed By: #### L 509.6001, L500.4050 ####[facility] [address] [place], [address] Bilirubin [Mass/Vol] 0.55 mg/dL Normal 0.00-1.30 [facility] Comment on above: Performed By: #### L 509.6001, L500.4050 ####[facility] [address] [place], [address] BUN/CRE 10.0 RATIO Normal 10-20 [facility] Comment on above: Performed By: #### L 509.6001, L500.4050 ####[facility] [address] [place], [address] Calcium [Mass/Vol] 9.5 mg/dL Normal 7.6-11.0 [facility] Comment on above: Performed By: #### L 509.6001, L500.4050 ####[facility] [address] [place], [address] Chloride [Moles/Vol] 99 mmol/L Normal 98-108 [facility] Comment on above: Performed By: #### L 509.6001, L500.4050 ####[facility] [address] [place], [address] CO2 [Moles/Vol] 22.5 mmol/L Normal 21.0-32.0 [facility] Comment on above: Performed By: #### L 509.6001, L500.4050 ####[facility] [address] [place], [address] Creatinine [Mass/Vol] 0.79 mg/dL Normal 0.70-1.20 [facility] Comment on above: Performed By: #### L 509.6001, L500.4050 ####[facility] [address] [place], [address] ECRCL 112.03 ml/min Normal 50-250 [facility] Comment on above: Performed By: #### L 509.6001, L500.4050 ####[facility] [address] [place], [address] GAP 16 High 5-15 [facility] Comment on above: Performed By: #### L 509.6001, L500.4050 ####[facility] [address] [place], [address] GFR/1.73 sq M.predicted among non-blacks MDRD (S/P/Bld) [Vol rate/Area] 102 mL/min/{1.73_m2} Normal >60 [facility] Comment on above: Result Comment: mL/m in/1.73m2 CKD-EPI Creatinine Equation (2020) Performed By: #### L 509.6001, L500.4050 ####[facility] [address] [place], [address] Globulin (S) [Mass/Vol] 3.3 g/dL Normal 2.2-4.2 [facility] Comment on above: Performed By: #### L 509.6001, L500.4050 ####[facility] [address] [place], [address] Glucose [Mass/Vol] 103 mg/dL High 70-99 [facility] Comment on above: Performed By: #### L 509.6001, L500.4050 ####[facility] [address] [place], [address] Potassium [Moles/Vol] 3.5 mmol/L Normal 3.3-5.1 [facility] Comment on above: Performed By: #### L 509.6001, L500.4050 ####[facility] [address] [place], [address] Sodium [Moles/Vol] 137 mmol/L Normal 133-145 [facility] Comment on above: Performed By: #### L 509.6001, L500.4050 ####[facility] [address] [place], [address] T PROT 7.4 g/dL Normal 5.9-8.4 [facility] Comment on above: Performed By: #### L 509.6001, L500.4050 ####[facility] [address] [place], [address] Urea nitrogen [Mass/Vol] 8 mg/dL Normal 4-19 [facility] Comment on above: Performed By: #### L 509.6001, L500.4050 ####[facility] [address] [place], [address] Emergency Department Summary on 07-20-2025 Emergency Department Summary Normal [facility] deOrdered By: Mary Wang on 07-20-2025 Glucose [Mass/Vol] 147 mg/dL High 74-106 [facility] Comment on above: MANAGEMENT OF PATIEN T CARE PER NURSING PROTOCOL H AND P Exam - Hospitaliston 07-20-2025 H&P Exam - Hospitalist Normal [facility] Influenza virus A and B and SARS-CoV-2 (COVID-19) and Respiratory syncytial virus RNAOrdered By: Herberth Spear on 07-20-2025 SARS-CoV-2 (COVID-19) RNA PINKY+probe Ql (Unsp spec) [facility] Ketones Test strip Ql (U)Ord ered By: Herberth Spear on 07-20-2025 Ketones Ql (U) Negative Negative [facility] L509.6001on 07-20-2025 CORTISOL 0.12 ug/dL Low 6.02-18.40 [facility] Comment on above: Performed By: #### L 509.6001, L500.4050 ####[facility] [address] [place], [address] M100.678on 07-20-2025 M100.678 Pending SARS-CoV-2 (COVID 19) Negative INFLUENZA A Negative INFLUENZA B Negative RSV PCR Negative Normal [facility] Comment on above: Performed By: #### L 400.0001, M100.678 ####[facility] [address] [place], [address] Microscopic analysis of urin e for red blood cells (RBC)Ordered By: Herberth Spear on 07-20-2025 Microscopic analysis of urine for red blood cells (RBC) 0-5 SEEN /hpf 0-5 [facility] Mucus LM Ql (Urine sed)Order ed By: Herberth Spear on 07-20-2025 Mucus Ql (Urine sed) 0 SEEN /hpf [facility] Nitrite Test strip Ql (U)Ord ered By: Herberth Spear on 07-20-2025 Nitrite Ql (U) Negative Negative [facility] ,Serum,hCG Quali.on 07-20-2025 HCG, SERUM QUAL Negative Normal [facility] Comment on above: Performed By: #### L 100.0100, L700.6800 ####[facility] [address] [place], [place], [id number] Protein Test strip Ql (U)Ord ered By: Herberth Spear on 07-20-2025 Protein Ql (U) Negative Negative [facility] RESPIRATORY PANEL MOLECULARo n 07-20-2025 RP PANEL Normal [facility] Comment on above: Performed By: #### M 100.638 ####[facility] [address] [place], [address] Respiratory pathogens detect ion panel by molecular detection methodOrdered By: Mary Wang on 07-20-2025 Respiratory pathogens DNA and RNA panel PINKY+probe (Resp) [facility] Serum beta-hCG test, qualita tiveOrdered By: Herberth Spear on 07-20-2025 Beta HCG ( test) Ql Negative [facility] Serum or plasma cortisol rdau surement (mass/volume)Ordered By: Herberth Spear on 07-20-2025 Cortisol [Mass/Vol] 0.12 ug/dL Low 6.02-18.40 [facility] Squamous epithelial cells de tection in urine sediment by light microscopyOrdered By: Herberth Spear on 07-20-2025 Epithelial cells.squamous LM Ql (Urine sed) 0-5 SEEN /hpf 5-10 [facility] Urinalysis, Completeon 07-20 BACTERIA 1+ /hpf Normal None Seen [facility] Comment on above: Order Comment: CLEAN CATCH Performed By: #### L 400.0001, M100.678 ####[facility] [address] [place], [address] EPI,SQUAMOUS 0-5 SEEN Normal 5-10 [facility] Comment on above: Order Comment: CLEAN CATCH Performed By: #### L 400.0001, M100.678 ####[facility] [address] [place], [address] RBC 0-5 SEEN Normal 0-5 [facility] Comment on above: Order Comment: CLEAN CATCH Performed By: #### L 400.0001, M100.678 ####[facility] [address] [place], [address] WBC 0-5 SEEN Normal 0-5 [facility] Comment on above: Order Comment: CLEAN CATCH Performed By: #### L 400.0001, M100.678 ####[facility] [address] [place], [address] Mucus Ql (Urine sed) 0 SEEN Normal [facility] Comment on above: Order Comment: CLEAN CATCH Performed By: #### L 400.0001, M100.678 ####[facility] [address] [place], [address] Urine clarityOrdered By: Rosa Spear on 07-20-2025 Clarity (U) Clear Clear [facility] Urine color determinationOrd ered By: Herberth Spear on 07-20-2025 Color (U) Yellow Yellow [facility] Urine glucose detectionOrder ed By: Herberth Spear on 07-20-2025 Glucose Ql (U) 1000 mg/dl High Normal [facility] Urine leukocyte esterase det ection by dipstickOrdered By: Herberth Spear on 07-20-2025 Leukocyte esterase Test strip Ql (U) Negative Negative [facility] Urine pHOrdered By: Herberth Un gur on 07-20-2025 pH (U) 7.0 [pH] 5.0 - 8.0 [facility] Urine sediment bacteria coun t by microscopy (number/high power field)Ordered By: Herberth Spear on 07-20-2025 Bacteria LM.HPF (Urine sed) [#/Area] 1 /[HPF] None Seen [facility] Urine specific gravity measu rementOrdered By: Herberth Spear on 07-20-2025 Specific gravity (U) [Rel density] 1.010 1.002-1.030 [facility] Urine urobilinogen measureme ntOrdered By: Herberth Spear on 07-20-2025 Urobilinogen Ql (U) Normal mg/dl Normal [facility] White blood cell countOrdere d By: Herberth Spear on 07-20-2025 White blood cell count 0-5 SEEN /hpf 0-5 [facility] CBC + DIFFon 07-19-2025 Baso # 0.03 x10EE3/UL Normal 0.00 - 0.10 [facility] Comment on above: Performed By: #### 2 13527 ####[facility],[address] [place] [address] Basophils/100 WBC (Bld) 0.3 % Normal 0.0 - 2.0 [facility] Comment on above: Performed By: #### 2 22817 ####[facility],[address] [place] [address] CBC + DIFF Normal [facility] Comment on above: Result Comment: CBC- COMPLETE BLOOD COUNT Performed By: #### 2 60551 ####[facility],[address] [place] [address] EO # 0.03 x10EE3/UL Normal 0.00 - 0.50 [facility] Comment on above: Performed By: #### 2 34931 ####[facility],[address] [place] [address] Eosinophils/100 WBC (Bld) 0.4 % Normal 0.0 - 7.0 [facility] Comment on above: Performed By: #### 2 73481 ####[facility],[address] [place] [address] Erythrocyte distribution width (RBC) [Ratio] 16.6 % High 12.0 - 15.6 [facility] Comment on above: Performed By: #### 2 49881 ####[facility],[address] [place] [address] Hematocrit (Bld) [Volume fraction] 36.8 % Normal 34.0 - 46.0 [facility] Comment on above: Performed By: #### 2 16783 ####[facility],[address] [place], [place] [id number] Hemoglobin (Bld) [Mass/Vol] 12.2 g/dL Normal 12.0 - 16.0 [facility] Comment on above: Performed By: #### 2 04761 ####[facility],[address] [place], [place] [id number] Lymph # 3.14 x10EE3/UL High 0.80 - 2.80 [facility] Comment on above: Performed By: #### 2 13965 ####[facility],[address] [place] [address],[place] [address] Lymphocytes/100 WBC (Bld) 32.4 % Normal 20.0 - 45.0 [facility] Comment on above: Performed By: #### 2 49876 ####[facility],[address] [place] [address] MANUAL DIFF N/A Normal [facility] Comment on above: Performed By: #### 2 15227 ####[facility],[address] [place] [address] MCH (RBC) [Entitic mass] 25 pg Low 27 - 33 [facility] Comment on above: Performed By: #### 2 66744 ####[facility],[address] [place] [address] MCHC 33 X10 3 Normal 32 - 36 [facility] Comment on above: Performed By: #### 2 20245 ####[facility],[address] [place] [address] MCV (RBC) [Entitic vol] 76 fL Low 80 - 99 [facility] Comment on above: Performed By: #### 2 59059 ####[facility],[address] [place] [address] Freestone # 0.79 x10EE3/UL Normal 0.20 - 1.00 [facility] Comment on above: Performed By: #### 2 29970 ####[facility],[address] [place] [address] MONOS % 8.2 % Normal 0.0 - 10.0 [facility] Comment on above: Performed By: #### 2 83901 ####[facility],[address] [place], [place] [id number] Morphology Arnie (Bld) [Interp] N/A Normal [facility] Comment on above: Performed By: #### 2 46148 ####[facility],[address] [place] [address] Neut # 5.71 x10EE3/UL Normal 1.50 - 7.10 [facility] Comment on above: Performed By: #### 2 45695 ####[facility],[address] [place] [address] 60349 Neutrophils/100 WBC (Bld) 58.8 % Normal 46.0 - 76.0 [facility] Comment on above: Performed By: #### 2 40232 ####[facility],[address] [place], [place] [id number] PLATELET 421 x10EE3/UL Normal 150 - 450 [facility] Comment on above: Performed By: #### 2 27447 ####[facility],[address] [place] [address] Platelet mean volume (Bld) [Entitic vol] 7.4 fL Normal 6.6 - 10.5 [facility] Comment on above: Result Comment: AUTO MATED DIFFERENTIAL Performed By: #### 2 59119 ####[facility],[address] [place] [address] RBC 4.87 x 10EE6/UL Normal 4.10 - 5.30 [facility] Comment on above: Performed By: #### 2 02191 ####[facility],[address] [place], [place] [id number] WBC 9.7 x 10EE3/UL Normal 4.5 - 10.8 [facility] Comment on above: Performed By: #### 2 28669 ####[facility],[address] [place], [place] [id number] CK SerPl-cCncon 07-19-2025 CK [Catalytic activity/Vol] 46 U/L Normal 42-196 [facility] Comment on above: Order Comment: Speci men Type: BLOOD SPECIMENOrdering Facility: [facility] Address: [address] [place] [address] Performed By: #### 2 157-6 ####[facility] [id number] [address] [place] CMP with eGFRon 07-19-2025 AGE 30 years Normal [facility] Comment on above: Performed By: #### 2 34970 ####[facility],[address] [place] [address]674 Albumin [Mass/Vol] 3.1 g/dL Low 3.4 - 5.0 [facility] Comment on above: Performed By: #### 2 19409 ####[facility],[address] [place] [address] Albumin/Globulin [Mass ratio] 0.8 {ratio} Low 0.9 - 1.6 [facility] Comment on above: Performed By: #### 2 33302 ####[facility],[address] [place], [place] [id number] ALK PHOS 105 U/L Normal 46 - 116 [facility] Comment on above: Performed By: #### 2 21026 ####[facility],[address] [place], [place] [id number] ALT [Catalytic activity/Vol] 30 U/L Normal 16 - 63 [facility] Comment on above: Performed By: #### 2 97776 ####[facility],[address] [place] [address] Anion gap [Moles/Vol] 8 mmol/L Low 10 - 20 [facility] Comment on above: Performed By: #### 2 05998 ####[address] [address] AST [Catalytic activity/Vol] 14 U/L Normal 13 - 39 [facility] Comment on above: Performed By: #### 2 19302 ####[address] [address] B/C RATIO 9 ratio Normal 0 - 30 [facility] Comment on above: Performed By: #### 2 24169 ####[address] [address] Bilirubin [Mass/Vol] 0.7 mg/dL Normal 0.2 - 1.0 [facility] Comment on above: Performed By: #### 2 11969 ####[place] [address] Calcium [Mass/Vol] 8.6 mg/dL Normal 8.5 - 10.1 [facility] Comment on above: Performed By: #### 2 49913 ####[place] [address] Chloride [Moles/Vol] 101 mmol/L Normal 98 - 107 [facility] Comment on above: Performed By: #### 2 13588 ####[place] [address] CMP with eGFR Normal [facility] Comment on above: Result Comment: COMP REHENSIVE METABOLIC PANEL Performed By: #### 2 21695 ####[place] [address] CO2 [Moles/Vol] 31.1 mmol/L Normal 21.0 - 32.0 [facility] Comment on above: Performed By: #### 2 19495 ####[place] [address] Creatinine [Mass/Vol] 0.98 mg/dL Normal 0.55 - 1.02 [facility] Comment on above: Performed By: #### 2 27046 ####[place] [address] GFR/1.73 sq M.predicted among non-blacks MDRD (S/P/Bld) [Vol rate/Area] mL/min/{1.73_m2} Normal 60 - 999 [facility] Comment on above: Performed By: #### 2 55363 ####[facility],[address] [place] [address] Result Comment: ACCO RDING TO THE NATIONAL KIDNEY DISEASE EDUCATION PROGRAM(NKDE), A NORMAL eGFRIS A VALUE GREATER THAN OR EQUAL TO 60 ML/MIN/1.73 SQ METERS.CHRONIC KIDNEY DISEASE: <60mL/MIN/1.73 SQ METERSKIDNEY FAILURE: <15mL/MIN/1.73 SQ METERSTHIS TEST SHOULD ONLY BE USED FOR PATIENTS 18 YEARS OF AGE AND OLDER. Globulin (S) [Mass/Vol] 4.0 g/dL High 1.5 - 3.8 [facility] Comment on above: Performed By: #### 2 99258 ####[facility],[address] [place] [address] Glucose [Mass/Vol] 77 mg/dL Normal 74 - 106 [facility] Comment on above: Performed By: #### 2 31024 ####[facility],[address] [place] [address] Potassium [Moles/Vol] 3.2 mmol/L Low 3.5 - 5.1 [facility] Comment on above: Performed By: #### 2 30408 ####[facility],[address] [place] [address] Protein [Mass/Vol] 7.1 g/dL Normal 6.4 - 8.2 [facility] Comment on above: Performed By: #### 2 06480 ####[address] [address] Sodium [Moles/Vol] 137 mmol/L Normal 136 - 145 [facility] Comment on above: Performed By: #### 2 40468 ####[facility],[address] [place] [address] 14234 Urea nitrogen [Mass/Vol] 9 mg/dL Normal 7 - 18 [facility] Comment on above: Performed By: #### 2 11337 ####[facility],[address] [place] [address] CORONAVIRUS (SARS) ANTIGEN T ESTon 07-19-2025 EXTERNAL QC DONE? YES Normal [facility] Comment on above: Performed By: #### 2 11107 ####[facility],[address] [place] [address] 35421 INTERNAL CONTROL PASS Normal [facility] Comment on above: Performed By: #### 2 88495 ####[facility],[address] [place] [address] 38314 SARS ANTIGEN Negative Normal NORMAL: NEGATIVE [facility] Comment on above: Performed By: #### 2 88280 ####[facility],[address] [place] [address]95 SEND TO ? NO Normal [facility] Comment on above: Result Comment: SARS -CoV-2THIS TEST IS BEING USED UNDER THE FDA EUA PROCEDURE. THIS ASSAY HAS BEENVALIDATED AT [facility] FOR USE WITH NASAL AND NASOPHARYNGEAL SWABSPECIMENS.INTERPRETIVE DATATEST RESULTS SHOULD ALWAYS BE CONSIDERED IN THE CONTEXT OF CLINICALOBSERVATIONS AND EPIDEMIOLOGICAL DATA IN MAKING FINAL DIAGNOSIS AND PATIENTMANAGEMENT DECISIONS. PATIENT MANAGEMENT SHOULD FOLLOW CURRENT CDC GUIDELINES.THE ANATOLIY SARS ANTIGEN LESTER DOES NOT DIFFERENTIATE BETWEEN SARS-CoV & SARS-CoV-2.A POSITIVE TEST RESULT INDICATES THE PRESENCE OF SARS-CoV-2 NUCLEOCAPSID PROTEINANTIGEN, AND THE PATIENT IS INFECTED WITH THE VIRUS AND PRESUMED TO BECONTAGIOUS.A NEGATIVE TEST RESULT FOR THIS TEST MEANS THAT SARS-CoV-2 NUCLEOCAPSID PROTEINANTIGEN WAS NOT PRESENT IN THE SPECIMEN ABOVE THE LIMIT OF DETECTION. HOWEVER, ANEGATIVE RESULT DOES NOT RULE OUT COVID-19 AND SHOULD NOT BE USED THE SOLEBASIS FOR TREATMENT OR PATIENT MANAGEMENT DECISIONS. A NEGATIVE RESULT DOES NOTEXCLUDE THE POSSIBILITY OF COVID-19. NEGATIVE RESULTS, FROM PATIENTS WITHSYMPTOM ONSET BEYOND FIVE DAYS, SHOULD BE TREATED PRESUMPTIVE ANDCONFIRMATION WITH A MOLECULAR ASSAY, IF NECESSARY, FOR PATIENT MANAGEMENT, MAYBE PERFORMED.WHEN DIAGNOSTIC TESTING IS NEGATIVE, THE POSSIBLILTY OF A FALSE NEGATIVE RESULTSHOULD BE CONSIDERED IN THE CONTEXT OF A PATIENT'S RECENT EXPOSURES AND THEPRESENCE OF CLINICAL SIGNS AND SYMPTOMS CONSISTENT WITH COVID-19. THEPOSSIBILITY OF A FALSE NEGATIVE RESULT SHOULD ESPECIALLY BE CONSIDERED IF THEPATIENT'S RECENT EXPOSURES OR CLINICAL PRESENTATION INDICATE THAT COVID-19 ISLIKELY, AND DIAGNOSTIC TESTS FOR OTHER CAUSES OF ILLNESS (e.g., OTHERRESPIRATORY ILLNESS) ARE NEGATIVE. IF COVID-19 IS STILL SUSPECTED BASED ONEXPOSURE HISTORY TOGETHER WITH OTHER CLINICAL FINDINGS, RE-TESTING SHOULD BECONSIDERED BY HEALTHCARE PROVIDERS IN CONSULTATION WITH [facility]. Performed By: #### 2 03592 ####[facility],[address] [place] [address] INFLUENZA VIRUS RAPID A/Bon 07-19-2025 INFLUENZA VIRUS RAPID A/B Normal [facility] Comment on above: Performed By: #### 2 39755 ####[place] [address] LACTATEon 07-19-2025 Lactate [Moles/Vol] 1.8 mmol/L Normal 0.4 - 2.0 [facility] Comment on above: Performed By: #### 2 68002 ####[facility],[address] [place] [address] LIPASEon 07-19-2025 Lipase [Catalytic activity/Vol] 21.0 U/L Normal 15.0 - 78.0 [facility] Comment on above: Result Comment: *PLE ASE NOTE THAT RANGES FOR LIPASE HAVE CHANGED OF 10/20/23 DUE TO AN ASSAYUPDATE BY THE RIVER PILOT.THE NEW ASSAY RANGE IS 6-250 U/L, WITH A REFERENCERANGE OF 16-77 U/L. Performed By: #### 2 92109 ####[facility],[address] [place] [address] RESPIRATORY PANEL PCR (POM)o n 07-19-2025 ADENOVIRUS Negative Normal NORMAL: NEGATIVE [facility] Comment on above: Performed By: #### 2 48690 ####[address] [address] B. HOLMESII Negative Normal NORMAL: NEGATIVE [facility] Comment on above: Performed By: #### 2 13840 ####[address] [address] B. PARAPERTUSSIS Negative Normal NORMAL: NEGATIVE [facility] Comment on above: Performed By: #### 2 76052 ####[facility],[address] [facility] [address] B. PERTUSSIS Negative Normal NORMAL: NEGATIVE [facility] Comment on above: Performed By: #### 2 00173 ####[facility],[address] [facility] [address] H. METAPNEUMOVIRUS Negative Normal NORMAL: NEGATIVE [facility] Comment on above: Performed By: #### 2 48074 ####[facility],[address] [facility] [address] Influenza A Negative Normal NORMAL: NEGATIVE [facility] Comment on above: Performed By: #### 2 42913 ####[facility],[address] [facility] [address] INFLUENZA A H1 Negative Normal NORMAL: NEGATIVE [facility] Comment on above: Performed By: #### 2 23743 ####[facility],[address] [facility] [address] INFLUENZA A H3 Negative Normal NORMAL: NEGATIVE [facility] Comment on above: Performed By: #### 2 19645 ####[facility],[address] [facility] [address] Influenza B Negative Normal NORMAL: NEGATIVE [facility] Comment on above: Performed By: #### 2 97920 ####[facility],[address] [facility],[place] [address] PARAINFLUENZA 1 Negative Normal NORMAL: NEGATIVE [facility] Comment on above: Performed By: #### 2 62895 ####[facility],[address] [facility] [address] PARAINFLUENZA 2 Negative Normal NORMAL: NEGATIVE [facility] Comment on above: Performed By: #### 2 43291 ####[facility],[address] [facility],[place] [address] PARAINFLUENZA 3 Negative Normal NORMAL: NEGATIVE [facility] Comment on above: Performed By: #### 2 07475 ####[facility],[address] [place] [address] PARAINFLUENZA 4 Negative Normal NORMAL: NEGATIVE [facility] Comment on above: Performed By: #### 2 01147 ####[facility],[address] [place] [address] RESPIRATORY PANEL PCR (POM) Normal [facility] Comment on above: Result Comment: RESP IRATORY PANEL FLEX PCR Performed By: #### 2 71254 ####[facility],[address] [place] [address] RHINOVIRUS Negative Normal NORMAL: NEGATIVE [facility] Comment on above: Performed By: #### 2 43055 ####[facility],[address] [place] [address] RSV A Negative Normal NORMAL: NEGATIVE [facility] Comment on above: Performed By: #### 2 61815 ####[facility],[address] [place] [address] RSV B Negative Normal NORMAL: NEGATIVE [facility] Comment on above: Performed By: #### 2 04981 ####[facility],[address] [place] [address]157 SEND TO ? NO Normal [facility] Comment on above: Result Comment: THIS ASSAY HAS BEEN VALIDATED IN THE [facility] FOR USE WITHNASOPHARYNGEAL SPECIMENS IN [facility].INTERPRETIVE DATATHE [employer] RESPIRATORY PATHOGENS FLEX NUCLEIC ACID TEST (RP FLEX) IS AMULTIPLEXED QUALITATIVE TEST INTENDED FOR THE SIMULTANEOUS DETECTION ANDIDENTIFICATION OF MULTIPLE VIRAL AND BACTERIAL NUCLEIC ACIDS IN NASOPHARYNGEALSWABS (SCIENCE ANALYST) OBTAINED FROM INDIVIDUALS SUSPECTED OF RESPIRATORY TRACT INFECTION.THE TEST IS PERFORMED ON THE AUTOMATED [employer] SYSTEM UTILIZING REVERSETRANSCRIPTION (RT), POLYMERASE CHAIN REACTION (PCR), AND MICROARRAYHYBRIDIZATION TO DETECT GENE SEQUENCES OF THE FOLLOWING ORGANISM TYPES ANDSUBTYPES:ADENOVIRUS, HUMAN METAPNEUMOVIRUS,INFLUENZA A,INFLUENZA A (SUBTYPE H1),INFLUENZA A (SUBTYPE H3), INFLUENZA B,PARAINFLUENZA 1,PARAINFLUENZA 2,PARAINFLUENZA 3, PARAINFLUENZA 4, RESPIRATORY SYNCYTIAL VIRUS A,RESPIRATORYSYNCYTIAL VIRUS B, RHINOVIRUS,BORDETELLA PARAPERTUSSIS/BRONCHISEPTICA,BORDETELLAHOLMESII,AND BORDETELLA PERTUSSIS.DETECTING AND IDENTIFYING SPECIFIC VIRAL AND BACTERIAL NUCLEIC ACIDS FROMINDIVIDUALS EXHIBITING SIGNS AND SYMPTOMS OF RESPIRATORY INFECTION AIDS IN THEDIAGNOSIS OF RESPIRATORY INFECTION, IF USED IN CONJUNCTION WITH OTHER CLINICALAND LABORATORY FINDINGS. THE RESULTS OF THIS TEST SHOULD NOT BE USED THE SOLEBASIS FOR DIAGNOSIS, TREATMENT, OR PATIENT MANAGEMENT DECISIONS.NEGATIVE RESULTS IN THE PRESENCE OF A RESPIRATORY ILLNESS DO NOT PRECLUDERESPIRATORY INFECTION AND MAY BE DUE TO INFECTION WITH PATHOGENS THAT ARE NOTDETECTED BY THIS TEST OR LOWER RESPIRATORY TRACT INFECTION THAT IS NOT DETECTEDBY AN SCIENCE ANALYST SPECIMEN. CONVERSELY, POSITIVE RESULTS DO NOT RULE-OUT INFECTION ORCO-INFECTION WITH ORGANISMS NOT DETECTED BY RP FLEX. THE AGENT(S) DETECTED MAYNOT BE THE DEFINITE CAUSE OF DISEASE. THE USE OF ADDITIONAL LABORATORY TESTINGAND CLINICAL PRESENTATION MAY BE NECESSARY TO ESTABLISH A FINAL DIAGNOSIS OFRESPIRATORY INFECTION. CLINICAL EVALUATION INDICATES A LOWER SENSITIVITYSPECIFIC TO RP FLEX FOR THE DETECTION OF RHINOVIRUS. IF INFECTION WITHRHINOVIRUS IS SUSPECTED, NEGATIVE SAMPLES SHOULD BE CONFIRMED USING ANALTERNATIVE METHOD.PERFORMANCE CHARACTERISTICS FOR INFLUENZA A WERE ESTABLISHED WHEN INFLUENZA A/H1(2009 PANDEMIC) AND A/H3 WERE THE PREDOMINANT INFLUENZA A VIRUSES INCIRCULATION. RP FLEX MAY NOT DETECT NOVEL INFLUENZA A STRAINS. IF INFECTION WITHA NOVEL INFLUENZA A VIRUS IS SUSPECTED BASED ON CURRENT CLINICAL ANDEPIDEMIOLOGICAL SCREENING CRITERIA RECOMMENDED BY PUBLIC HEALTH AUTHORITIES,SPECIMENS SHOULD BE COLLECTED WITH APPROPRIATE INFECTION CONTROL PRECAUTIONSUSED SPECIFICALLY FOR NOVEL VIRULENT INFLUENZA VIRUSES AND SENT TO APPROPRIATEHEALTH AUTHORITIES FOR TESTING. VIRAL CULTURE SHOULD NOT BE ATTEMPTED IN THESECASES UNLESS A BIOSAFETY LEVEL (BSL) 3+ FACILITY IS AVAILABLE TO RECEIVE ANDCULTURE SPECIMENS. Performed By: #### 2 78548 ####[address] [address] RSVon 07-19-2025 RSV Normal [facility] Comment on above: Performed By: #### 2 15488 ####[facility],[address] [place] [address] 23968 TROPONINon 07-19-2025 HS TROPONIN <4.0 Normal 0.0 - 51.4 [facility] Comment on above: Performed By: #### 2 68703 ####[facility],[address] [place], [place] [id number] TSHon 07-19-2025 TSH Qn 2.69 m[IU]/L Normal 0.35 - 3.74 [facility] Comment on above: Performed By: #### 2 09938 ####[facility],[address] [place] [address] URINALYSISon 07-19-2025 Bilirubin Ql (U) Negative Normal NORMAL: NEGATIVE [facility] Comment on above: Performed By: #### 2 57435 ####[facility],[address] [place], [place] [id number] Clarity (U) clear Normal NORMAL: CLEAR [facility] Comment on above: Performed By: #### 2 45317 ####[facility],[address] [place], [place] [id number] Color (U) p.yel Normal NORMAL: YELLOW [facility] Comment on above: Performed By: #### 2 32879 ####[facility],[address] [place] [address] Glucose Ql (U) 1000 Abnormal NORMAL: NORMAL [facility] Comment on above: Performed By: #### 2 58426 ####[facility],[address] [place] [address] Hemoglobin Ql (U) Negative Normal NORMAL: NEGATIVE [facility] Comment on above: Performed By: #### 2 34763 ####[facility],[address] [place] [address] 24945 Ketone Negative Normal NORMAL: NEGATIVE [facility] Comment on above: Performed By: #### 2 03003 ####[facility],[address] [place] [address]25[address] Leukocytes Negative Normal NORMAL: NEGATIVE [facility] Comment on above: Performed By: #### 2 72544 ####[facility],[address] [place] [address] Nitrite Ql (U) Negative Normal NORMAL: NEGATIVE [facility] Comment on above: Performed By: #### 2 38046 ####[facility],[address] [place] [address] pH (U) 7 [pH] Normal NORMAL: 5.0-8.0 [facility] Comment on above: Performed By: #### 2 63609 ####[facility],[address] [place] [address] Protein Ql (U) Negative Normal NORMAL: NEGATIVE [facility] Comment on above: Performed By: #### 2 19023 ####[facility],[address] [place] [address] Sp [place] 1.010 Normal NORMAL: 1.010-1.030 [facility] Comment on above: Performed By: #### 2 69243 ####[facility],[address] [place] [address] Specimen Type R Normal [facility] Comment on above: Performed By: #### 2 23421 ####[facility],[address] [place] [address] Urinalysis dipstick W Reflex Microscopic panel (U) NOT INDICATED Normal [facility] Comment on above: Performed By: #### 2 75859 ####[place] [address] Urobilinog NORM Normal NORMAL: NORMAL [facility] Comment on above: Performed By: #### 2 48185 ####[place] [address] Absolute lymphocyte countOrd ered By: Mary Wang on 06-17-2025 Lymphocytes Auto (Unsp spec) [#/Vol] 1.78 10*3/uL 0.83-4.51 [facility] Absolute neutrophil countOrd ered By: Mary Wang on 06-17-2025 Neutrophils (Bld) [#/Vol] 7.8 10*3/uL High 2.0-7.7 [facility] Anion gap in Serum or Plasma Ordered By: Mary Wang on 06-17-2025 Anion gap [Moles/Vol] 11 mmol/L 5-15 [facility] Automated lymphocyte count a s percentage of total leukocytesOrdered By: Mary Wang on 06-17-2025 Lymphocytes/100 WBC Auto (Unsp spec) 17.7 % Low 19-41 [facility] BUN/creatinine ratioOrdered By: Mary Wang on 06-17-2025 Urea nitrogen/Creatinine [Mass ratio] 8.7 mg/mg Low 10-20 [facility] Basic Metabolic Profile (BMP )on 06-17-2025 BUN/CRE 8.7 RATIO Low 10-20 [facility] Comment on above: Performed By: #### L 100.0100, L500.2500 ####[facility] [address] [place], [address] Calcium [Mass/Vol] 8.1 mg/dL Normal 7.6-11.0 [facility] Comment on above: Performed By: #### L 100.0100, L500.2500 ####[facility] [address] [place], [address] Chloride [Moles/Vol] 106 mmol/L Normal 98-108 [facility] Comment on above: Performed By: #### L 100.0100, L500.2500 ####[facility] [address] [place], [address] CO2 [Moles/Vol] 21.9 mmol/L Normal 21.0-32.0 [facility] Comment on above: Performed By: #### L 100.0100, L500.2500 ####[facility] [address] [place], [address] Creatinine [Mass/Vol] 0.72 mg/dL Normal 0.70-1.20 [facility] Comment on above: Performed By: #### L 100.0100, L500.2500 ####[facility] [address] [place], [address] ECRCL 124.24 ml/min Normal 50-250 [facility] Comment on above: Performed By: #### L 100.0100, L500.2500 ####[facility] [address] [place], [address] GAP 11 Normal 5-15 [facility] Comment on above: Performed By: #### L 100.0100, L500.2500 ####[facility] [address] [place], [address] GFR/1.73 sq M.predicted among non-blacks MDRD (S/P/Bld) [Vol rate/Area] 114 mL/min/{1.73_m2} Normal >60 [facility] Comment on above: Result Comment: mL/m in/1.73m2 CKD-EPI Creatinine Equation (2020) Performed By: #### L 100.0100, L500.2500 ####[facility] [address] [place], [address] Glucose [Mass/Vol] 89 mg/dL Normal 70-99 [facility] Comment on above: Performed By: #### L 100.0100, L500.2500 ####[facility] [address] [place], [address] Potassium [Moles/Vol] 3.9 mmol/L Normal 3.3-5.1 [facility] Comment on above: Result Comment: Hemo lysis present, Results??could be affected.?? Performed By: #### L 100.0100, L500.2500 ####[facility] [address] [place], [address] Sodium [Moles/Vol] 139 mmol/L Normal 133-145 [facility] Comment on above: Performed By: #### L 100.0100, L500.2500 ####[facility] [address] [place], [address] Urea nitrogen [Mass/Vol] 6 mg/dL Normal 4-19 [facility] Comment on above: Performed By: #### L 100.0100, L500.2500 ####[facility] [address] [place], [address] Basophil percentageOrdered B y: Mary Wang on 06-17-2025 Basophils/100 WBC (Bld) 0.2 % 0-1 [facility] CBC W/Diff, Automatedon 05-24 Absolute Lymph 1.78 X10 3/uL Normal 0.83-4.51 [facility] Comment on above: Performed By: #### L 100.0100, L500.2500 ####[facility] [address] [place], [address] Absolute Neut 7.8 X10 3/uL High 2.0-7.7 [facility] Comment on above: Performed By: #### L 100.0100, L500.2500 ####[facility] [address] [place], [address] Basophils/100 WBC (Bld) 0.2 % Normal 0-1 [facility] Comment on above: Performed By: #### L 100.0100, L500.2500 ####[facility] [address] [place], [address] Eosinophils/100 WBC (Bld) 0.0 % Normal 0-5 [facility] Comment on above: Performed By: #### L 100.0100, L500.2500 ####[facility] [address] [place], [address] Erythrocyte distribution width (RBC) [Ratio] 16.1 % High 11.6-14.6 [facility] Comment on above: Performed By: #### L 100.0100, L500.2500 ####[facility] [address] [place], [address] Hematocrit (Bld) [Volume fraction] 35.4 % Low 37-47 [facility] Comment on above: Performed By: #### L 100.0100, L500.2500 ####[facility] [address] [place], [address] Hemoglobin (Bld) [Mass/Vol] 11.2 g/dL Low 12.0-15.0 [facility] Comment on above: Performed By: #### L 100.0100, L500.2500 ####[facility] [address] [place], [address] IG% 0.400 Normal 0.0-0.9 [facility] Comment on above: Result Comment: IG% - Immature Granulocytes (promyelocytes, myelocytes andmetamyelocytes) > 1% indicates that a LEFT SHIFT is Present. Performed By: #### L 100.0100, L500.2500 ####[facility] [address] [place], [address] Lymphocytes/100 WBC (Bld) 17.7 % Low 19-41 [facility] Comment on above: Performed By: #### L 100.0100, L500.2500 ####[facility] [address] [place], [address] MCH (RBC) [Entitic mass] 25.1 pg Low 27.0-32.0 [facility] Comment on above: Performed By: #### L 100.0100, L500.2500 ####[facility] [address] [place], [address] MCHC (RBC) [Mass/Vol] 31.6 g/dL Low 32-36 [facility] Comment on above: Performed By: #### L 100.0100, L500.2500 ####[facility] [address] [place], [address] MCV (RBC) [Entitic vol] 79.2 fL Low 81-99 [facility] Comment on above: Performed By: #### L 100.0100, L500.2500 ####[facility] [address] [place], [address] Monocytes/100 WBC (Bld) 4.8 % Normal 0-10 [facility] Comment on above: Performed By: #### L 100.0100, L500.2500 ####[facility] [address] [place], [address] Neutrophils/100 WBC (Bld) 76.9 % High 47-70 [facility] Comment on above: Performed By: #### L 100.0100, L500.2500 ####[facility] [address] [place], [address] Nucleated RBC (Bld) [#/Vol] 0 10*3/uL Normal 0-5 [facility] Comment on above: Performed By: #### L 100.0100, L500.2500 ####[facility] [address] [place], [address] Platelet mean volume (Bld) [Entitic vol] 10.6 fL Normal 6.2-12.0 [facility] Comment on above: Performed By: #### L 100.0100, L500.2500 ####[facility] [address] [place], [address] Platelets (Bld) [#/Vol] 356 10*3/uL Normal 150-450 [facility] Comment on above: Performed By: #### L 100.0100, L500.2500 ####[facility] [address] [place], [address] RBC (Bld) [#/Vol] 4.47 10*6/uL Normal 4.2-5.4 [facility] Comment on above: Performed By: #### L 100.0100, L500.2500 ####[facility] [address] [place], [address] RDW SD 45.8 fl High 35.1-43.9 [facility] Comment on above: Performed By: #### L 100.0100, L500.2500 ####[facility] [address] [place], [address] WBC (Bld) [#/Vol] 10.1 10*3/uL Normal 4.4-11.0 [facility] Comment on above: Performed By: #### L 100.0100, L500.2500 ####[facility] [address] [place], [place], [id number] Carbon dioxide, total [Moles /volume] in Central venous bloodOrdered By: Mary Wang on 06-17-2025 CO2 [Moles/Vol] 21.9 mmol/L 21.0-32.0 [facility] Chloride assayOrdered By: Trudi Wang on 06-17-2025 Chloride [Moles/Vol] 106 mmol/L 98-108 [facility] Discharge Instructionon 08-2 Discharge Instruction Normal [facility] Eosinophil percentageOrdered By: Mary Wang on 06-17-2025 Eosinophils/100 WBC (Bld) 0.0 % 0-5 [facility] Erythrocyte distribution wid th ratioOrdered By: Mary Wang on 06-17-2025 Erythrocyte distribution width (RBC) [Ratio] 16.1 % High 11.6-14.6 [facility] Erythrocyte distribution wid th standard deviationOrdered By: Mary Wang on 06-17-2025 Erythrocyte distribution width (RBC) [Ratio] 45.8 fl High 35.1-43.9 [facility] Ferritinon 06-17-2025 Ferritin [Mass/Vol] 41 ng/mL Normal 22-378 [facility] Comment on above: Order Comment: C62 N O STORAGE Performed By: #### L 503.6020, L503.6550 ####[facility] [address] [place], [place], [id number] Glomerular filtration rate ( GFR) estimation/1.73 sq m using serum, plasma, or whole bOrdered By: Mary Wang on 06-17-2025 GFR/1.73 sq M.predicted among non-blacks MDRD (S/P/Bld) [Vol rate/Area] 114 mL/min/{1.73_m2} >60 [facility] Comment on above: mL/min/1.73m2 CKD-EP I Creatinine Equation (2020) Hematocrit Auto (Bld) [Volum e fraction]Ordered By: Mary Wang on 06-17-2025 Hematocrit (Bld) [Volume fraction] 35.4 % Low 37-47 [facility] Hemoglobin measurementOrdere d By: Mary Wang on 06-17-2025 Hemoglobin (Bld) [Mass/Vol] 11.2 g/dL Low 12.0-15.0 [facility] Immature granulocytes/100 WB C Auto (Bld)Ordered By: Mary Wang on 06-17-2025 Immature granulocytes/100 WBC (Bld) 0.400 % 0.0-0.9 [facility] Comment on above: IG% - Immature Granu locytes (promyelocytes, myelocytes and metamyelocytes) > 1% indicates that a LEFT SHIFT is Present. Iron measurement (mass/mass) Ordered By: Mode Christianson on 06-17-2025 Iron (Unsp spec) [Mass/Mass] 52 ug/dL 50-170 [facility] Iron+Iron Binding Capacityon 06-17-2025 Iron [Mass/Vol] 52 ug/dL Normal 50-170 [facility] Comment on above: Order Comment: C62 N O STORAGE Performed By: #### L 503.6018, L503.6650 ####[facility] [address] [place], [place], [id number] UIBC 270 ug/dL Normal 228-428 [facility] Comment on above: Order Comment: C62 N O STORAGE Result Comment: Hemo lysis present, Results??could be affected.?? Performed By: #### L 503.6030, L503.6550 ####[facility] [address] [place], [place], [id number] MCV (mean corpuscular volume ) determinationOrdered By: Mary Wang on 06-17-2025 MCV (RBC) [Entitic vol] 79.2 fL Low 81-99 [facility] Mean corpuscular hemoglobin (MCH) determinationOrdered By: Mary Wang on 06-17-2025 MCH (RBC) [Entitic mass] 25.1 pg Low 27.0-32.0 [facility] Mean corpuscular hemoglobin concentration (MCHC) determinationOrdered By: Mary Wang on 06-17-2025 MCHC (RBC) [Mass/Vol] 31.6 g/dL Low 32-36 [facility] Mean platelet volume determi nationOrdered By: Mary Wang on 06-17-2025 Platelet mean volume (Bld) [Entitic vol] 10.6 fL 6.2-12.0 [facility] Monocyte percentageOrdered B y: Mary Wang on 06-17-2025 Monocytes/100 WBC (Bld) 4.8 % 0-10 [facility] Neutrophil percentageOrdered By: Mary Wang on 06-17-2025 Neutrophils/100 WBC (Bld) 76.9 % High 47-70 [facility] No Panel InformationOrdered By: Mode Christianson on 06-17-2025 Unsaturated Iron Binding Capacity 270 ug/dL 228-428 [facility] Comment on above: Hemolysis present, R esults could be affected. Nucleated red blood cell per centageOrdered By: Mary Wang on 06-17-2025 Nucleated RBC/100 WBC (Bld) [Ratio] 0 % 0-5 [facility] Platelet countOrdered By: Trudi Wang on 06-17-2025 Platelets (Bld) [#/Vol] 356 10*3/uL 150-450 [facility] Potassium measurement (mass/ volume)Ordered By: Mary Wang on 06-17-2025 Potassium (Unsp spec) [Mass/Vol] 3.9 mmol/L 3.3-5.1 [facility] Comment on above: Hemolysis present, R esults could be affected. RBC Auto (Bld) [#/Vol]Ordere d By: Mary Wang on 06-17-2025 RBC (Bld) [#/Vol] 4.47 10*6/uL 4.2-5.4 [facility] Serum creatinine measurement (mass/volume)Ordered By: Mary Wang on 06-17-2025 Creatinine [Mass/Vol] 0.72 mg/dL 0.70-1.20 [facility] Serum glucose measurement (m ass/volume)Ordered By: Mary Wang on 06-17-2025 Glucose [Mass/Vol] 89 mg/dL 70-99 [facility] Serum or plasma calcium evert urement (mass/volume)Ordered By: Mary Wang on 06-17-2025 Calcium [Mass/Vol] 8.1 mg/dL 7.6-11.0 [facility] Serum or plasma ferritin radu surement (mass/volume)Ordered By: Mode Christianson on 06-17-2025 Ferritin [Mass/Vol] 41 ng/mL 22-378 [facility] Serum or plasma iron saturat ion measurement (mass fraction)Ordered By: Mode Christianson on 06-17-2025 Iron saturation [Mass fraction] 16.1 % 13-59 [facility] Comment on above: Previous reported re sult: 16.0 %Edited by: LENO on 06/17/25:1004 AMENDED REPORT 06/17/25 1004 IRON SATURATION previously reported as: 16.0 % Serum or plasma urea nitroge n measurement (mass/volume)Ordered By: Mary Wang on 06-17-2025 Urea nitrogen [Mass/Vol] 6 mg/dL 4-19 [facility] Sodium levelOrdered By: Donald Wang on 06-17-2025 Sodium [Moles/Vol] 139 mmol/L 133-145 [facility] White blood cell (WBC) count Ordered By: Mary Wang on 06-17-2025 WBC (Bld) [#/Vol] 10.1 10*3/uL 4.4-11.0 [facility] Absolute lymphocyte countOrd ered By: Terrance Tavera on 06-16-2025 Lymphocytes Auto (Unsp spec) [#/Vol] 3.06 10*3/uL 0.83-4.51 [facility] Absolute neutrophil countOrd ered By: Terrance Tavera on 06-16-2025 Neutrophils (Bld) [#/Vol] 5.4 10*3/uL 2.0-7.7 [facility] Activated partial thrombopla stin time (aPTT) in platelet poor plasma by coagulation aOrdered By: Terrance Tavera on 06-16-2025 aPTT Coag (PPP) [Time] 29.0 s 24.1-36.2 [facility] Anion gap in Serum or Plasma Ordered By: Terrance Tavera on 06-16-2025 Anion gap [Moles/Vol] 16 mmol/L High 5-15 [facility] Automated lymphocyte count a s percentage of total leukocytesOrdered By: Terrance Tavera on 06-16-2025 Lymphocytes/100 WBC Auto (Unsp spec) 32.6 % - [facility] BUN/creatinine ratioOrdered By: Terrance Tavera on 06-16-2025 Urea nitrogen/Creatinine [Mass ratio] 10.1 mg/mg - [facility] Basic Metabolic Profile (BMP )on 06-16-2025 BUN/CRE 10.1 RATIO Normal - [facility] Comment on above: Performed By: #### L 300.4310, L100.0100, L300.3900, L503.6005, L509.6001, L500.2500 ####[facility] [address] [place], [address] Calcium [Mass/Vol] 9.1 mg/dL Normal 7.6-11.0 [facility] Comment on above: Performed By: #### L 300.4310, L100.0100, L300.3900, L503.6005, L509.6001, L500.2500 ####[facility] [address] [place], [address] Chloride [Moles/Vol] 103 mmol/L Normal 98-108 [facility] Comment on above: Performed By: #### L 300.4310, L100.0100, L300.3900, L503.6005, L509.6001, L500.2500 ####[facility] [address] [place], [address] CO2 [Moles/Vol] 21.3 mmol/L Normal 21.0-32.0 [facility] Comment on above: Performed By: #### L 300.4310, L100.0100, L300.3900, L503.6005, L509.6001, L500.2500 ####[facility] [address] [place], [address] Creatinine [Mass/Vol] 0.92 mg/dL Normal 0.70-1.20 [facility] Comment on above: Performed By: #### L 300.4310, L100.0100, L300.3900, L503.6005, L509.6001, L500.2500 ####[facility] [address] [place], [address] ECRCL 97.23 ml/min Normal 50-250 [facility] Comment on above: Performed By: #### L 300.4310, L100.0100, L300.3900, L503.6005, L509.6001, L500.2500 ####[facility] [address] [place], [address] GAP 16 High 5-15 [facility] Comment on above: Performed By: #### L 300.4310, L100.0100, L300.3900, L503.6005, L509.6001, L500.2500 ####[facility] [address] [place], [address] GFR/1.73 sq M.predicted among non-blacks MDRD (S/P/Bld) [Vol rate/Area] 85 mL/min/{1.73_m2} Normal >60 [facility] Comment on above: Result Comment: mL/m in/1.73m2 CKD-EPI Creatinine Equation (2020) Performed By: #### L 300.4310, L100.0100, L300.3900, L503.6005, L509.6001, L500.2500 ####[facility] [address] [place], [address] Glucose [Mass/Vol] 72 mg/dL Normal 70-99 [facility] Comment on above: Performed By: #### L 300.4310, L100.0100, L300.3900, L503.6005, L509.6001, L500.2500 ####[facility] [address] [place], [address] Potassium [Moles/Vol] 3.8 mmol/L Normal 3.3-5.1 [facility] Comment on above: Performed By: #### L 300.4310, L100.0100, L300.3900, L503.6005, L509.6001, L500.2500 ####[facility] [address] [place], [address] Sodium [Moles/Vol] 140 mmol/L Normal 133-145 [facility] Comment on above: Performed By: #### L 300.4310, L100.0100, L300.3900, L503.6005, L509.6001, L500.2500 ####[facility] [address] [place], [address] Urea nitrogen [Mass/Vol] 9 mg/dL Normal 4-19 [facility] Comment on above: Performed By: #### L 300.4310, L100.0100, L300.3900, L503.6005, L509.6001, L500.2500 ####[facility] [address] [place], [address] Basophil percentageOrdered B y: Terrance Tavera on 06-16-2025 Basophils/100 WBC (Bld) 0.4 % 0-1 [facility] Beta-Hydroxbytyrateon 2024 BETA-HYDROXYBUT 0.1 mmol/L Normal 0.0-0.3 [facility] Comment on above: Performed By: #### L 501.6901 ####[facility] [address] [place], [address] Beta-hydroxybutyrateOrdered By: Terrance Tavera on 06-16-2025 Beta hydroxybutyrate [Mass/Vol] 0.1 mmol/L 0.0-0.3 [facility] Bilirubin Test strip Ql (U)O rdered By: Terrance Tavera on 06-16-2025 Bilirubin Ql (U) Negative Negative [facility] CBC W/Diff, Automatedon 05-24 Absolute Lymph 3.06 X10 3/uL Normal 0.83-4.51 [facility] Comment on above: Performed By: #### L 300.4310, L100.0100, L300.3900, L503.6005, L509.6001, L500.2500 ####[facility] [address] [place], [address] Absolute Neut 5.4 X10 3/uL Normal 2.0-7.7 [facility] Comment on above: Performed By: #### L 300.4310, L100.0100, L300.3900, L503.6005, L509.6001, L500.2500 ####[facility] [address] [place], [address] Basophils/100 WBC (Bld) 0.4 % Normal 0-1 [facility] Comment on above: Performed By: #### L 300.4310, L100.0100, L300.3900, L503.6005, L509.6001, L500.2500 ####[facility] [address] [place], [address] Eosinophils/100 WBC (Bld) 0.0 % Normal 0-5 [facility] Comment on above: Performed By: #### L 300.4310, L100.0100, L300.3900, L503.6005, L509.6001, L500.2500 ####[facility] [address] [place], [address] Erythrocyte distribution width (RBC) [Ratio] 16.1 % High 11.6-14.6 [facility] Comment on above: Performed By: #### L 300.4310, L100.0100, L300.3900, L503.6005, L509.6001, L500.2500 ####[facility] [address] [place], [address] Hematocrit (Bld) [Volume fraction] 41.6 % Normal 37-47 [facility] Comment on above: Performed By: #### L 300.4310, L100.0100, L300.3900, L503.6005, L509.6001, L500.2500 ####[facility] [address] [place] [place], [address] Hemoglobin (Bld) [Mass/Vol] 12.7 g/dL Normal 12.0-15.0 [facility] Comment on above: Performed By: #### L 300.4310, L100.0100, L300.3900, L503.6005, L509.6001, L500.2500 ####[facility] [address] [place] [place], [address] IG% 0.400 Normal 0.0-0.9 [facility] Comment on above: Result Comment: IG% - Immature Granulocytes (promyelocytes, myelocytes andmetamyelocytes) > 1% indicates that a LEFT SHIFT is Present. Performed By: #### L 300.4310, L100.0100, L300.3900, L503.6005, L509.6001, L500.2500 ####[facility] [address] [place] [place], [address] Lymphocytes/100 WBC (Bld) 32.6 % Normal 19-41 [facility] Comment on above: Performed By: #### L 300.4310, L100.0100, L300.3900, L503.6005, L509.6001, L500.2500 ####[facility] [address] [place], [address] MCH (RBC) [Entitic mass] 24.5 pg Low 27.0-32.0 [facility] Comment on above: Performed By: #### L 300.4310, L100.0100, L300.3900, L503.6005, L509.6001, L500.2500 ####[facility] [address] [place], [address] MCHC (RBC) [Mass/Vol] 30.5 g/dL Low 32-36 [facility] Comment on above: Performed By: #### L 300.4310, L100.0100, L300.3900, L503.6005, L509.6001, L500.2500 ####[facility] [address] [place], [address] MCV (RBC) [Entitic vol] 80.2 fL Low 81-99 [facility] Comment on above: Performed By: #### L 300.4310, L100.0100, L300.3900, L503.6005, L509.6001, L500.2500 ####[facility] [address] [place], [address] Monocytes/100 WBC (Bld) 8.6 % Normal 0-10 [facility] Comment on above: Performed By: #### L 300.4310, L100.0100, L300.3900, L503.6005, L509.6001, L500.2500 ####[facility] [address] [place], [address] Neutrophils/100 WBC (Bld) 58.0 % Normal 47-70 [facility] Comment on above: Performed By: #### L 300.4310, L100.0100, L300.3900, L503.6005, L509.6001, L500.2500 ####[facility] [address] [place], [address] Nucleated RBC (Bld) [#/Vol] 0 10*3/uL Normal 0-5 [facility] Comment on above: Performed By: #### L 300.4310, L100.0100, L300.3900, L503.6005, L509.6001, L500.2500 ####[facility] [address] [place], [address] Platelet mean volume (Bld) [Entitic vol] 9.6 fL Normal 6.2-12.0 [facility] Comment on above: Performed By: #### L 300.4310, L100.0100, L300.3900, L503.6005, L509.6001, L500.2500 ####[facility] [address] [place], [address] Platelets (Bld) [#/Vol] 280 10*3/uL Normal 150-450 [facility] Comment on above: Performed By: #### L 300.4310, L100.0100, L300.3900, L503.6005, L509.6001, L500.2500 ####[facility] [address] [place], [address] RBC (Bld) [#/Vol] 5.19 10*6/uL Normal 4.2-5.4 [facility] Comment on above: Performed By: #### L 300.4310, L100.0100, L300.3900, L503.6005, L509.6001, L500.2500 ####[facility] [address] [place], [address] RDW SD 45.7 fl High 35.1-43.9 [facility] Comment on above: Performed By: #### L 300.4310, L100.0100, L300.3900, L503.6005, L509.6001, L500.2500 ####[facility] [address] [place], [address] WBC (Bld) [#/Vol] 9.4 10*3/uL Normal 4.4-11.0 [facility] Comment on above: Performed By: #### L 300.4310, L100.0100, L300.3900, L503.6005, L509.6001, L500.2500 ####[facility] [address] [place], [address] Carbon dioxide, total [Moles /volume] in Central venous bloodOrdered By: Terrance Tavera on 06-16-2025 CO2 [Moles/Vol] 21.3 mmol/L 21.0-32.0 [facility] Chloride assayOrdered By: Yaneli Tavera on 06-16-2025 Chloride [Moles/Vol] 103 mmol/L 98-108 [facility] Emergency Department Summary on 06-16-2025 Emergency Department Summary Normal [facility] Eosinophil percentageOrdered By: Terrance Tavera on 06-16-2025 Eosinophils/100 WBC (Bld) 0.0 % 0-5 [facility] Erythrocyte distribution wid th ratioOrdered By: Terrance Tavera on 06-16-2025 Erythrocyte distribution width (RBC) [Ratio] 16.1 % High 11.6-14.6 [facility] Erythrocyte distribution wid th standard deviationOrdered By: Terrance Tavera on 06-16-2025 Erythrocyte distribution width (RBC) [Ratio] 45.7 fl High 35.1-43.9 [facility] Glomerular filtration rate ( GFR) estimation/1.73 sq m using serum, plasma, or whole bOrdered By: Terrance Tavera on 06-16-2025 GFR/1.73 sq M.predicted among non-blacks MDRD (S/P/Bld) [Vol rate/Area] 85 mL/min/{1.73_m2} >60 [facility] Comment on above: mL/min/1.73m2 CKD-EP I Creatinine Equation (2020) H AND P Exam - [facility] 06-16-2025 H&P Exam - Hospitalist Normal [facility] Hematocrit Auto (Bld) [Volum e fraction]Ordered By: Terrance Tavera on 06-16-2025 Hematocrit (Bld) [Volume fraction] 41.6 % 37-47 [facility] Hemoglobin measurementOrdere d By: Terrance Tavera on 06-16-2025 Hemoglobin (Bld) [Mass/Vol] 12.7 g/dL 12.0-15.0 [facility] Immature granulocytes/100 WB C Auto (Bld)Ordered By: Terrance Tavera on 06-16-2025 Immature granulocytes/100 WBC (Bld) 0.400 % 0.0-0.9 [facility] Comment on above: IG% - Immature Granu locytes (promyelocytes, myelocytes and metamyelocytes) > 1% indicates that a LEFT SHIFT is Present. Influenza virus A and B and SARS-CoV-2 (COVID-19) and Respiratory syncytial virus RNAOrdered By: Terrance Tavera on 06-16-2025 SARS-CoV-2 (COVID-19) RNA PINKY+probe Ql (Unsp spec) [facility] International normalized rat io (INR) calculationOrdered By: Terrance Tavera on 06-16-2025 INR Coag (Bld) [Relative time] 1.0 {INR} [facility] Ketones Test strip Ql (U)Ord ered By: Terrance Tavera on 06-16-2025 Ketones Ql (U) Negative Negative [facility] L509.6001on 06-16-2025 CORTISOL 0.16 ug/dL Low 6.02-18.40 [facility] Comment on above: Performed By: #### L 300.4310, L100.0100, L300.3900, L503.6005, L509.6001, L500.2500 ####[facility] [address] [place], [address] Lactic Acidon 06-16-2025 Lactate [Moles/Vol] 1.7 mmol/L Normal 0.0-2.0 [facility] Comment on above: Performed By: #### L 503.6005 ####[facility] [address] [address] [place], [place], [id number] Lactate [Moles/Vol] 2.0 mmol/L Normal 0.0-2.0 [facility] Comment on above: Order Comment: Y Result Comment: Crit ical Result(s) Called to: Fish RN (ER) by:Genaro??Results read back by same. Performed By: #### L 300.4310, L100.0100, L300.3900, L503.6005, L509.6001, L500.2500 ####[facility] [address] [place], [place], [id number] Lactic acid measurementOrder ed By: Terrance Tavera on 06-16-2025 Lactate [Moles/Vol] 1.7 mmol/L 0.0-2.0 [facility] Lactate [Moles/Vol] 2.0 mmol/L 0.0-2.0 [facility] Comment on above: Critical Result(s) C alled to: Fish RN (ER) by: Genaro Results read back by same. M100.678on 06-16-2025 M100.678 Pending SARS-CoV-2 (COVID 19) Negative INFLUENZA A Negative INFLUENZA B Negative RSV PCR Negative Normal [facility] Comment on above: Performed By: #### M 100.678 ####[facility] [address] [place], [place], [id number] MCV (mean corpuscular volume ) determinationOrdered By: Terrance Tavera on 06-16-2025 MCV (RBC) [Entitic vol] 80.2 fL Low 81-99 [facility] Mean corpuscular hemoglobin (MCH) determinationOrdered By: Terrance Tavera on 06-16-2025 MCH (RBC) [Entitic mass] 24.5 pg Low 27.0-32.0 [facility] Mean corpuscular hemoglobin concentration (MCHC) determinationOrdered By: Terrance Tavera on 06-16-2025 MCHC (RBC) [Mass/Vol] 30.5 g/dL Low 32-36 [facility] Mean platelet volume determi nationOrdered By: Terrance Tavera on 06-16-2025 Platelet mean volume (Bld) [Entitic vol] 9.6 fL 6.2-12.0 [facility] Microscopic analysis of urin e for red blood cells (RBC)Ordered By: Terrance Tavera on 06-16-2025 Microscopic analysis of urine for red blood cells (RBC) 0 SEEN /hpf 0-5 [facility] Monocyte percentageOrdered B y: Terrance Tavera on 06-16-2025 Monocytes/100 WBC (Bld) 8.6 % 0-10 [facility] Mucus LM Ql (Urine sed)Order ed By: Terrance Tavera on 06-16-2025 Mucus Ql (Urine sed) 0 SEEN /hpf [facility] Neutrophil percentageOrdered By: Terrance Tavera on 06-16-2025 Neutrophils/100 WBC (Bld) 58.0 % 47-70 [facility] Nitrite Test strip Ql (U)Ord ered By: Terrance Tavera on 06-16-2025 Nitrite Ql (U) Negative Negative [facility] Nucleated red blood cell per centageOrdered By: Terrance Tavera on 06-16-2025 Nucleated RBC/100 WBC (Bld) [Ratio] 0 % 0-5 [facility] Partial Thromboplast Timeon 06-16-2025 aPTT Coag (Bld) [Time] 29.0 s Normal 24.1-36.2 [facility] Comment on above: Performed By: #### L 300.4310, L100.0100, L300.3900, L503.6005, L509.6001, L500.2500 ####[facility] [address] [place], [place], [id number] Platelet countOrdered By: Yaneli Tavera on 06-16-2025 Platelets (Bld) [#/Vol] 280 10*3/uL 150-450 [facility] Potassium measurement (mass/ volume)Ordered By: Terrance Tavera on 06-16-2025 Potassium (Unsp spec) [Mass/Vol] 3.8 mmol/L 3.3-5.1 [facility] Protein Test strip Ql (U)Ord ered By: Terrance Tavera on 06-16-2025 Protein Ql (U) 15 mg/dl High Negative [facility] Prothrombin Time w/INRon INR Coag (PPP) [Relative time] 1.0 {INR} Normal [facility] Comment on above: Performed By: #### L 300.4310, L100.0100, L300.3900, L503.6005, L509.6001, L500.2500 ####[facility] [address] [place], [address] PT Coag (PPP) [Time] 13.1 s Normal 11.7-14.9 [facility] Comment on above: Performed By: #### L 300.4310, L100.0100, L300.3900, L503.6005, L509.6001, L500.2500 ####[facility] [address] [place], [place], [address] Prothrombin timeOrdered By: Terrance Tavera on 06-16-2025 PT Coag (PPP) [Time] 13.1 s 11.7-14.9 [facility] RBC Auto (Bld) [#/Vol]Ordere d By: Terrance Tavera on 06-16-2025 RBC (Bld) [#/Vol] 5.19 10*6/uL 4.2-5.4 [facility] Serum creatinine measurement (mass/volume)Ordered By: Terrance Tavera on 06-16-2025 Creatinine [Mass/Vol] 0.92 mg/dL 0.70-1.20 [facility] Serum glucose measurement (m ass/volume)Ordered By: Terrance Tavera on 06-16-2025 Glucose [Mass/Vol] 72 mg/dL 70-99 [facility] Serum or plasma calcium evert urement (mass/volume)Ordered By: Terrance Tavera on 06-16-2025 Calcium [Mass/Vol] 9.1 mg/dL 7.6-11.0 [facility] Serum or plasma cortisol radu surement (mass/volume)Ordered By: Terrance Tavera on 06-16-2025 Cortisol [Mass/Vol] 0.16 ug/dL Low 6.02-18.40 [facility] Serum or plasma urea nitroge n measurement (mass/volume)Ordered By: Terrance Tavera on 06-16-2025 Urea nitrogen [Mass/Vol] 9 mg/dL 4-19 [facility] Sodium levelOrdered By: Terrance Tavera on 06-16-2025 Sodium [Moles/Vol] 140 mmol/L 133-145 [facility] Squamous epithelial cells de tection in urine sediment by light microscopyOrdered By: Terrance Tavera on 06-16-2025 Epithelial cells.squamous LM Ql (Urine sed) 0 SEEN /hpf 5-10 [facility] Urinalysis, Completeon 06-16 BACTERIA RARE Normal None Seen [facility] Comment on above: Order Comment: CLEAN CATCH Performed By: #### L 400.0001 ####[facility] [address] [place], [address] WBC 0-5 SEEN Normal 0-5 [facility] Comment on above: Order Comment: CLEAN CATCH Performed By: #### L 400.0001 ####[facility] [address] [place], [address] EPI,SQUAMOUS 0 SEEN Normal 5-10 [facility] Comment on above: Order Comment: CLEAN CATCH Performed By: #### L 400.0001 ####[facility] [address] [place], [address] Mucus Ql (Urine sed) 0 SEEN Normal [facility] Comment on above: Order Comment: CLEAN CATCH Performed By: #### L 400.0001 ####[facility] [address] [place], [address] RBC 0 SEEN Normal 0-5 [facility] Comment on above: Order Comment: CLEAN CATCH Performed By: #### L 400.0001 ####[facility] [address] [place], [address] Urine clarityOrdered By: Lisa Tavera on 06-16-2025 Clarity (U) Clear Clear [facility] Urine color determinationOrd ered By: Terrance Tavera on 06-16-2025 Color (U) Straw Yellow [facility] Urine glucose detectionOrder ed By: Terrance Tavera on 06-16-2025 Glucose Ql (U) 250 mg/dl High Normal [facility] Urine leukocyte esterase det ection by dipstickOrdered By: Terrance Tavera on 06-16-2025 Leukocyte esterase Test strip Ql (U) Negative Negative [facility] Urine pHOrdered By: Terrance ponce on 06-16-2025 pH (U) 7.0 [pH] 5.0 - 8.0 [facility] Urine sediment bacteria coun t by microscopy (number/high power field)Ordered By: Terrance Tavera on 06-16-2025 Bacteria LM.HPF (Urine sed) [#/Area] RARE /hpf None Seen [facility] Urine specific gravity measu rementOrdered By: Terrance Tavera on 06-16-2025 Specific gravity (U) [Rel density] 1.005 1.002-1.030 [facility] Urine urobilinogen measureme ntOrdered By: Terrance Tavera on 06-16-2025 Urobilinogen Ql (U) Normal mg/dl Normal [facility] White blood cell (WBC) count Ordered By: Terrance Tavera on 06-16-2025 WBC (Bld) [#/Vol] 9.4 10*3/uL 4.4-11.0 [facility] White blood cell countOrdere d By: Terrance Tavera on 06-16-2025 White blood cell count 0-5 SEEN /hpf 0-5 [facility] CNPNon 06-12-2025 CNPN Telephone [facility] SONIA SZYMANSKI ([id number]) 1995 F Date Time Provider Department 06/12/25 [facility] During your visit today, we recorded the following information about you: Litzy Andre, JOEL 06/12/2025 11:25 AM Signed Spoke with patient this morning re: sharing blood sugar readings prior to virtual visit tomorrow with Dr. Pride. Patient states that she is wearing a Luke CGM. Instructions sent via [employer] for uploading and sharing her data with our office. Patient agreeable to doing so. Keshia Andre RDN, [facility] Allergies As of Date: 06/12/2025 Noted Allergy Reaction PREDNISONE 12/23/2015 10 - Anaphylaxis Comments: Had at the same time as Z-trinidad - unsure which caused the anaphylaxis [id number]- [id number] 02/27/2017 10 - Anaphylaxis EXCEDRIN (ACETAMINOPHEN-CAFFEINE ) 06/05/2013 7 - Swelling Comments: Mouth, can take tylenol LATEX 07/08/2014 2 - Rash 4 - Hives Comments: at site NEOSPORIN ([id number] *04/21/2014 4 - Hives VOLTAREN (DICLOFENAC SODIUM) 09/29/2014 14 - Other: See Comments Comments: Nausea ZITHROMAX (AZITHROMYCIN) 07/30/2014 10 - Anaphylaxis Comments: Hospitalized on 07/03/14 for this Date Reviewed: 06/09/2025 Reviewed by: Jeanne Goldman LPN - Fully Assessed Reason for [...] daily with breakfast. - Blood-Glucose Sensor (FREESTYLE LUKE 3 SENSOR) eliseo 1 Each every 2 [...] (BD TUBERCULIN SYRINGE) 1 mL 27 x 1/2" 1 Each three times daily. 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 Normal [facility] CBC W Auto Differential pane l (Bld)on 06-09-2025 Basophils (Bld) [#/Vol] 0.05 10*3/uL Normal <0.11 [facility] Comment on above: Order Comment: Speci men Type: BLOOD SPECIMENOrdering Facility: [facility] Address: [address] [place] [address] Performed By: #### 5 7021-8 ####[facility] LABCLIA [id number] [place] [address] [place] Basophils/100 WBC (Bld) 0.6 % Normal [facility] Comment on above: Order Comment: Speci men Type: BLOOD SPECIMENOrdering Facility: [facility] Address: [address] [place] [address] Performed By: #### 5 7021-8 ####[facility] LABCLIA [id number] [place] [address] [place] Differential cell count method Nom (Bld) Auto Normal [facility] Comment on above: Order Comment: Speci men Type: BLOOD SPECIMENOrdering Facility: [facility] Address: [address] [place] [address] Performed By: #### 5 7021-8 ####[facility] LABCLIA [id number] [place] [address] [place] Eosinophils (Bld) [#/Vol] 10*3/uL Normal <0.46 [facility] Comment on above: Order Comment: Speci men Type: BLOOD SPECIMENOrdering Facility: [facility] Address: [address] [place] [address] Performed By: #### 5 7021-8 ####[facility] LABCLIA [id number] [place] [address] [place] Eosinophils/100 WBC (Bld) 0.0 % Normal [facility] Comment on above: Order Comment: Speci men Type: BLOOD SPECIMENOrdering Facility: [facility] Address: [address] [place] [address] Performed By: #### 5 7021-8 ####[facility] LABCLIA [id number] [place] [address] [place] Erythrocyte distribution width (RBC) [Ratio] 16.4 % High 11.5-15.0 [facility] Comment on above: Order Comment: Speci men Type: BLOOD SPECIMENOrdering Facility: [facility] Address: [address] [place] [address] Performed By: #### 5 7021-8 ####[facility] LABCLIA [id number] [place] [address] [place] Hematocrit (Bld) [Volume fraction] 38.6 % Normal 36.0-46.0 [facility] Comment on above: Order Comment: Speci men Type: BLOOD SPECIMENOrdering Facility: [facility] Address: [address] [place] [address] Performed By: #### 5 7021-8 ####[facility] LABCLIA [id number] [place] [address] [place] Hemoglobin (Bld) [Mass/Vol] 11.9 g/dL Normal 11.5-15.5 [facility] Comment on above: Order Comment: Speci men Type: BLOOD SPECIMENOrdering Facility: [facility] Address: [address] [place] [address] Performed By: #### 5 7021-8 ####[facility] LABCLIA [id number] [place] [address] [place] Immature granulocytes (Bld) [#/Vol] 0.03 10*3/uL Normal <0.10 [facility] Comment on above: Order Comment: Speci men Type: BLOOD SPECIMENOrdering Facility: [facility] Address: [address] [place] [address] Performed By: #### 5 7021-8 ####[facility] LABCLIA [id number] [place] [address] [place] Immature granulocytes/100 WBC (Bld) 0.3 % Normal [facility] Comment on above: Order Comment: Speci men Type: BLOOD SPECIMENOrdering Facility: [facility] Address: [address] [place] [address] Performed By: #### 5 7021-8 ####[facility] LABCLIA [id number] [place] [address] [place] Lymphocytes (Bld) [#/Vol] 3.22 10*3/uL Normal 1.00-4.00 [facility] Comment on above: Order Comment: Speci men Type: BLOOD SPECIMENOrdering Facility: [facility] Address: [address] [place] [address] Performed By: #### 5 7021-8 ####[facility] LABIA [id number] [place] [address] [place] Lymphocytes/100 WBC (Bld) 35.8 % Normal [facility] Comment on above: Order Comment: Speci men Type: BLOOD SPECIMENOrdering Facility: [facility] Address: [address] [place] [address] Performed By: #### 5 7021-8 ####[facility] LABIA [id number] [place] [address] [place] MCH (RBC) [Entitic mass] 24.5 pg Low 26.0-34.0 [facility] Comment on above: Order Comment: Speci men Type: BLOOD SPECIMENOrdering Facility: [facility] Address: [address] [place] [address] Performed By: #### 5 7021-8 ####[facility] [id number] [place] [address] [place] MCHC (RBC) [Mass/Vol] 30.8 g/dL Normal 30.5-36.0 [facility] Comment on above: Order Comment: Speci men Type: BLOOD SPECIMENOrdering Facility: [facility] Address: [address] [place] [address] Performed By: #### 5 7021-8 ####[facility] LABIA [id number] [place] [address] [place] MCV (RBC) [Entitic vol] 79.4 fL Low 80.0-100.0 [facility] Comment on above: Order Comment: Speci men Type: BLOOD SPECIMENOrdering Facility: [facility] Address: [address] [place] [address] Performed By: #### 5 7021-8 ####[facility] LABIA [id number] [address] [place] [address] [place] Monocytes (Bld) [#/Vol] 0.71 10*3/uL Normal <0.87 [facility] Comment on above: Order Comment: Speci men Type: BLOOD SPECIMENOrdering Facility: [facility] Address: [address] [place] [address] Performed By: #### 5 7021-8 ####[facility] LABCLIA [id number] [facility] [address], [place] [address] [place] Monocytes/100 WBC (Bld) 7.9 % Normal [facility] Comment on above: Order Comment: Speci men Type: BLOOD SPECIMENOrdering Facility: [facility] Address: [address] [place] [address] Performed By: #### 5 7021-8 ####[facility] LABCLIA [id number] [facility] [place] [address] [place] Neutrophils (Bld) [#/Vol] 4.98 10*3/uL Normal 1.45-7.50 [facility] Comment on above: Order Comment: Speci men Type: BLOOD SPECIMENOrdering Facility: [facility] Address: [address] [place] [address] Performed By: #### 5 7021-8 ####[facility] LABCLIA [id number] [facility] [address], [place] [address] [place] Neutrophils/100 WBC (Bld) 55.4 % Normal [facility] Comment on above: Order Comment: Speci men Type: BLOOD SPECIMENOrdering Facility: [facility] Address: [address] [place] [address] Performed By: #### 5 7021-8 ####[facility] LABCLIA [id number] [facility] [place] [address] [place] Nucleated RBC (Bld) [#/Vol] 10*3/uL Normal <0.01 [facility] Comment on above: Order Comment: Speci men Type: BLOOD SPECIMENOrdering Facility: [facility] Address: [address] [place] [address] Performed By: #### 5 7021-8 ####[facility] LABCLIA [id number] [place] [address] [place] Nucleated RBC/100 WBC (Bld) [Ratio] 0.0 /100 WBC Normal [facility] Comment on above: Order Comment: Speci men Type: BLOOD SPECIMENOrdering Facility: [facility] Address: [address] [place] [address] Performed By: #### 5 7021-8 ####[facility] LABCLIA [id number] [place] [address] [place] Platelet mean volume (Bld) [Entitic vol] 10.1 fL Normal 9.0-12.7 [facility] Comment on above: Order Comment: Speci men Type: BLOOD SPECIMENOrdering Facility: [facility] Address: [address] [place] [address] Performed By: #### 5 7021-8 ####[facility] LABCLIA [id number] [place] [address] [place] Platelets (Bld) [#/Vol] 411 10*3/uL High 150-400 [facility] Comment on above: Order Comment: Speci men Type: BLOOD SPECIMENOrdering Facility: [facility] Address: [address] [place] [address] Performed By: #### 5 7021-8 ####[facility] LABCLIA [id number] [address] [address] [place] RBC (Bld) [#/Vol] 4.86 10*6/uL Normal 3.90-5.20 [facility] Comment on above: Order Comment: Speci men Type: BLOOD SPECIMENOrdering Facility: [facility] Address: [address] [place] [address] Performed By: #### 5 7021-8 ####[facility] LABCLIA [id number] [place] [id number] [place] WBC (Bld) [#/Vol] 8.99 10*3/uL Normal 3.70-11.00 [facility] Comment on above: Order Comment: Speci men Type: BLOOD SPECIMENOrdering Facility: [facility] Address: [address] [place] [address] Performed By: #### 5 7021-8 ####[facility] LABCLIA [id number] [place] [id number] [place] CNOVon 06-09-2025 CNOV Office Visit (FAMPWS ) NESSASONIA BROWN ([id number]) 1995 F Date Time Provider Department 06/09/25 3:00 PM [facility] During your visit today, we recorded the following information about you: Pulse Blood pressure Weight 94/minute 94/62 87.1 kg Isaias Bradley MD 06/09/2025 3:28 PM Signed - Have the following lab tests drawn today before you leave: cortisol; comprehensive metabolic panel (CMP); thyroid-stimulating hormone (TSH); hemoglobin A1c (A1c); ferritin; folate; vitamin B12; iron; and complete blood count (CBC). - Continue your ongoing follow-up appointments with Kenisha Daily NP (psychiatry); Dr. Danielle (neurology); and Dr. Pride (endocrinology). - Use zanaflex as needed. Do not mix with xanax at same time. - ice alternating with heat. - Call if not better in one week or sooner as needed. - get xray of shoulder today Isaias Bradley MD 06/09/2025 4:33 PM Signed Malia Szymanski is a 30-year-old female presenting for follow-up after an ER visit. HPI ER Follow-Up: - Recent ER visit at [facility] in [place]. Seen on 2 occasions at er on 06/05 and 06/06 - No loss of consciousness. No new headache or other neuro issues. - Underwent left hip X-ray and cervical spine and head CT, all unremarkable. - Was bending over in an aisle at [employer] and was struck by a shopping cart. [...] Care: - Continues to follow up with Kenisha Daily NP for psychiatry. Neurological Care: - Continues to follow up with Dr. Danielle for neurology. Endocrinology Care: - Continues to follow up with Dr. Pride for endocrinology. MEDICATIONS: Current Outpatient Medications Medication [...] tablet by mouth once daily. Blood-Glucose Sensor (Cherry Blossom BakerySTYLE LUKE 3 SENSOR) eliseo 1 Each every 2 weeks. promethazine (PHENERGAN) 25 mg tablet Take 1 tablet by mouth every 6 hours as needed for nausea/vomiting. Syringe with Needle, Disp, (BD TUBERCULIN SYRINGE) 1 mL 27 x 1/2" 1 Each three times daily. Food Supplement, [...] Anaphylaxis Had at the same time as Z-trinidad - unsure which caused the anaphylaxis Dbx-Plkuxxyyalyza-E* Anaphylaxis Excedrin [Acetamino* Swelling Mouth, can take tylenol Latex Rash, Hives at site Neosporin [Neomycin* Hives Voltaren [Diclofena* Other: See Comments Nausea Zithromax [Azithrom* Anaphylaxis Hospitalized on 07/03/14 for this PAST ME (more content not included)... Normal [facility] Comprehensive metabolic 2000 panelon 06-09-2025 Albumin [Mass/Vol] 4.3 g/dL Normal 3.9-4.9 [facility] Comment on above: Order Comment: Speci men Type: BLOOD SPECIMENOrdering Facility: [facility] Address: [address] [place] [address] Performed By: #### 2 284-8, 42618-3, 2132-06 ####[facility] LABCLIA [id number] [address] [address] [place] ALP [Catalytic activity/Vol] 116 U/L Normal 34-123 [facility] Comment on above: Order Comment: Speci men Type: BLOOD SPECIMENOrdering Facility: [facility] Address: [address] [place] [address] Performed By: #### 2 284-8, 24398-3, 2132-06 ####[facility] LABCLIA [id number] [place] [id number] [place] ALT [Catalytic activity/Vol] 37 U/L Normal 7-38 [facility] Comment on above: Order Comment: Speci men Type: BLOOD SPECIMENOrdering Facility: [facility] Address: [address] [place] [address] Performed By: #### 2 284-8, 07418-5, 2132-06 ####[facility] LABIA [id number] [place] [id number] [place] Anion gap [Moles/Vol] 14 mmol/L Normal 8-15 [facility] Comment on above: Order Comment: Speci men Type: BLOOD SPECIMENOrdering Facility: [facility] Address: [address] [place] [address] Performed By: #### 2 284-8, 83446-0, 2132-06 ####[facility] LABIA [id number] [address] [address] [place] AST [Catalytic activity/Vol] 17 U/L Normal 13-35 [facility] Comment on above: Order Comment: Speci men Type: BLOOD SPECIMENOrdering Facility: [facility] Address: [address] [place] [address] Performed By: #### 2 284-8, 44070-3, 2132-06 ####[facility] LABCLIA [id number] [address] [address] [place] Bilirubin [Mass/Vol] 0.7 mg/dL Normal 0.2-1.3 [facility] Comment on above: Order Comment: Speci men Type: BLOOD SPECIMENOrdering Facility: [facility] Address: [address] [place] [address] Performed By: #### 2 284-8, 09367-1, 2132-06 ####[facility] LABCLIA [id number] [place] [id number] [place] Calcium [Mass/Vol] 9.6 mg/dL Normal 8.5-10.2 [facility] Comment on above: Order Comment: Speci men Type: BLOOD SPECIMENOrdering Facility: [facility] Address: [address] [place] [address] Performed By: #### 2 284-8, 73695-9, 2132-06 ####[facility] LABCLIA [id number] [address] [address] [place] Chloride [Moles/Vol] 100 mmol/L Normal 98-107 [facility] Comment on above: Order Comment: Speci men Type: BLOOD SPECIMENOrdering Facility: [facility] Address: [address] [place], [place] [address] Performed By: #### 2 284-8, 00807-8, 2132-06 ####[facility] LABCLIA [id number] [address] [address] [place] CO2 [Moles/Vol] 25 mmol/L Normal 22-30 [facility] Comment on above: Order Comment: Speci men Type: BLOOD SPECIMENOrdering Facility: [facility] Address: [address] [place], [place] [address] Performed By: #### 2 284-8, 66485-4, 2132-06 ####[facility] LABIA [id number] [address] [address] [place] Creatinine [Mass/Vol] 0.99 mg/dL High 0.58-0.96 [facility] Comment on above: Order Comment: Speci men Type: BLOOD SPECIMENOrdering Facility: [facility] Address: [address] [place] [address] Performed By: #### 2 284-8, 06721-0, 2132-06 ####[facility] LABIA [id number] [address] [address] [place] eGFRcr SerPlBld CKD-EPI 2020 78 mL/min/1.73m??? Normal >=60 [facility] Comment on above: Order Comment: [facility] Type: BLOOD SPECIMENOrdering Facility: [facility] Address: [address] [place] [address] Result Comment: Columba mated Glomerular Filtration Rate (eGFR) is calculated using the 2020 CKD-EPI creatinine equation. This equation utilizes serum creatinine, sex, and age as parameters. The creatinine assay has traceable calibration to isotope dilution-mass spectrometry. Refer to KDIGO guidelines for clinical interpretation. In patients with unstable renal function, e.g. those with acute kidney injury, the eGFR may not accurately reflect actual GFR. Performed By: #### 2 284-8, 69557-8, 2132-06 ####[facility] LABIA [id number] [address] [address] [place] Glucose [Mass/Vol] 85 mg/dL Normal 74-99 [facility] Comment on above: Order Comment: Speci mary Type: BLOOD SPECIMENOrdering Facility: [facility] Address: [address] [place] [employer], [place] [address] Result Comment: The [place] Diabetes Association (ADA) provides guidance for cutoff [...] Standards of Medical Care in Diabetes 2016, [place] Diabetes Association. Diabetes Care. 2016.39(Suppl 1). Performed By: #### 2 284-8, 87697-1, 2132-06 ####[facility] LABCLIA [id number] [place] [address] [place] Potassium [Moles/Vol] 4.2 mmol/L Normal 3.7-5.1 [facility] Comment on above: Order Comment: Speci men Type: BLOOD SPECIMENOrdering Facility: [facility] Address: [address] [place] [address] Performed By: #### 2 284-8, 76883-5, 2132-06 ####[facility] LABCLIA [id number] [place] [address] [place] Protein [Mass/Vol] 7.0 g/dL Normal 6.3-8.0 [facility] Comment on above: Order Comment: Nonii mary Type: BLOOD SPECIMENOrdering Facility: [facility] Address: [address] [place] [address] Performed By: #### 2 284-8, 67949-4, 2132-06 ####[facility] LABCLIA [id number] [place] [address] [place] Sodium [Moles/Vol] 139 mmol/L Normal 136-144 [facility] Comment on above: Order Comment: Speci men Type: BLOOD SPECIMENOrdering Facility: [facility] Address: [address] [place] [address] Performed By: #### 2 284-8, 19909-1, 2132-06 ####[facility] LABCLIA [id number] [address] [address] [place] Urea nitrogen [Mass/Vol] 7 mg/dL Normal 7-21 [facility] Comment on above: Order Comment: Speci men Type: BLOOD SPECIMENOrdering Facility: [facility] Address: [address] [place] [address] Performed By: #### 2 284-8, 68737-1, 2132-9 ####[facility] LABCLIA [id number] [place] [address] [place] Cortis SerPl-mCncon 06-09-20 25 Cortisol [Mass/Vol] 0.3 ug/dL Low 4.8-19.5 [facility] Comment on above: Order Comment: Speci men Type: BLOOD SPECIMENOrdering Facility: [facility] Address: [address] [place] [address] Result Comment: Prov ided reference range is from 6-10 AM sample collection time. Cortisol Reference Range: 6-10 AM = 4.8-19.5 ug/dL, 4-8 PM = 2.5-11.9 ug/dL Performed By: #### 5 0190-8, 2276-4, TSHRF, 2142-6 ####[facility] LABCLIA [id number] [place] [address] [place] Ferritin SerPl-mCncon 2024 Ferritin [Mass/Vol] 39.8 ng/mL Normal 14.7-205.1 [facility] Comment on above: Order Comment: Speci men Type: BLOOD SPECIMENOrdering Facility: [facility] Address: [address] [place] [address] Performed By: #### 5 0190-8, 2276-4, TSHRF, 2142-6 ####[facility] LABCLIA [id number] [place] [address] [place] Folate SerPl-mCncon 06-09-20 25 Folate [Mass/Vol] 5.7 ng/mL Normal >4.7 [facility] Comment on above: Order Comment: Speci men Type: BLOOD SPECIMENOrdering Facility: [facility] Address: [address] [place] [address] Performed By: #### 2 284-8, 78851-8, 2132-9 ####[facility] LABCLIA [id number] [place] [address] [place] HbA1c (Bld)on 06-09-2025 Average glucose Estimated from glycated hemoglobin (Bld) [Mass/Vol] 114 mg/dL Normal [facility] Comment on above: Order Comment: Speci men Type: BLOOD SPECIMENOrdering Facility: [facility] Address: [address] [place] [address] Result Comment: eAG: (Estimated average glucose) is a calculated value from HgbA1c and is employee representative of the average blood glucose level in the last 2-3 month period. Performed By: #### 5 5454-3 ####[facility] LABCLIA [id number] [place] [address] [place] HbA1c (Bld) [Mass fraction] 5.6 % Normal 4.3-5.6 [facility] Comment on above: Order Comment: Nonii men Type: BLOOD SPECIMENOrdering Facility: [facility] Address: [address] [place] [address] Result Comment: Ema ican Diabetes Association guidelines indicate that patients with HgbA1c in the range 5.7-6.4% are at increased risk for development of diabetes, and intervention by lifestyle modification may be beneficial. HgbA1c greater or equal to 6.5% is considered diagnostic of diabetes. Performed By: #### 5 5454-3 ####[facility] LABCLIA [id number] [place] [id number] [place] Iron and Iron binding capaci ty panelon 06-09-2025 Iron [Mass/Vol] 48 ug/dL Normal 41-186 [facility] Comment on above: Order Comment: Speci men Type: BLOOD SPECIMENOrdering Facility: [facility] Address: [address] [place] [address] Performed By: #### 5 0190-8, 2276-4, TSHRF, 2142-6 ####[facility] [id number] [address] [address] [place] Iron binding capacity [Mass/Vol] 382 ug/dL Normal 232-386 [facility] Comment on above: Order Comment: Speci men Type: BLOOD SPECIMENOrdering Facility: [facility] Address: [address] [place] [address] Performed By: #### 5 0190-8, 2276-4, TSHRF, 2142-6 ####[facility] [id number] [place] [id number] [place] Iron/TIBC [Molar ratio] 12.6 % Low 15.0-57.0 [facility] Comment on above: Order Comment: Speci men Type: BLOOD SPECIMENOrdering Facility: [facility] Address: [address] [place] [address] Performed By: #### 5 0190-8, 6-4, TSHRF, 6 ####[facility] [id number] [place] [address] [place] TSH W/REFLEX FT4on 5 TSH Qn 1.650 m[IU]/L Normal 0.270-4.200 [facility] Comment on above: Order Comment: Speci men Type: BLOOD SPECIMENOrdering Facility: [facility] Address: [address] [place] [address] Result Comment: If t he patient is , TSH reference range varies by gestational period: First Trimester (weeks 9-12): 0.180-2.990 mIU/L Second Trimester: 0.110-3.980 mIU/L Third Trimester: 0.480-4.710 mIU/L Fercho Potter et al. A Practical Approach for the Verifications and Determination of Site- and Trimester-Specific Reference Intervals for Thyroid Function tests in . Thyroid, 2019:29:3:412-420. Robbin Wilson, et al. 2017 Guidelines of the [place] Thyroid Association for the Diagnosis and Management of Thyroid Disease during and the . Thyroid, 2017:27:3:315-389. Performed By: #### 5 0190-8, 2276-4, TSHRF, 2143-6 ####[facility] LABCLIA [id number] [place] [id number] [place] [facility] Vit B12 SerPl-mCncon 025 Cobalamin (Vitamin B12) [Mass/Vol] 368 pg/mL Normal 232-1245 [facility] Comment on above: Order Comment: Speci men Type: BLOOD SPECIMENOrdering Facility: [facility] Address: [address] [place] [address] Performed By: #### 2 284-8, 21504-7, 2132-9 ####[facility] LABCLIA [id number] [place] [id number] [facility] XR SHLDR >/=3V AP/TIMOTHY AP/OTH R LTon 06-09-2025 XR SHLDR >/=3V AP/TIMOTHY AP/OTHR LT * * *Final Report* * * DATE OF EXAM: Jun 09 2025 4:00PM WOX 5252 - XR SHLDR >/=3V AP/TIMOTHY AP/OTHR LT / PROCEDURE REASON: multiple diagnoses * * * * Physician Interpretation * * * * XR SHLDR >/=3V AP/TIMOTHY AP/OTHR LT Ordering Physician: ISAIAS BRADLEY LEFT SHOULDER RADIOGRAPHS Clinical Statement: Contusion Comparison: None FINDINGS: There is no acute fracture or dislocation. The acromioclavicular and glenohumeral joints are normally approximated without degenerative change. Soft tissues are unremarkable. IMPRESSION: Normal exam. Esthetician: PSCB Transcribe Date/Time: Jun 14 2025 6:28P Dictated by : IGNACIO HILARIO MD This examination was interpreted and the report reviewed and electronically signed by: IGNACIO HILARIO MD on Jun 14 2025 6:29PM EST [id number] Normal [facility] CT HIP W/O LTon 06-06-2025 CT HIP W/O LT Normal [facility] ED MED ADMINISTRATION DETAIL on 06-06-2025 ED MED ADMINISTRATION DETAIL Normal [facility] ED NURSES CLINICAL NOTEon ED NURSES CLINICAL NOTE Normal [facility] ED ORDER SHEET (CPOE ONLY)on 06-06-2025 ED ORDER SHEET (CPOE ONLY) Normal [facility] ED PHYSICIAN CLINICAL REPORT on 06-06-2025 ED PHYSICIAN CLINICAL REPORT Normal [facility] ED SUPER BILLon 06-06-2025 ED SUPER BILL Normal [facility] ED VISIT SUMMARYon ED VISIT SUMMARY Normal [facility] ED VITALS FLOW SHEETon 06-06 ED VITALS FLOW SHEET Normal [facility] CT BRAIN W/O CONTRASTon 08- CT BRAIN W/O CONTRAST Normal [facility] CT CERVICAL W/O CONTRASTon 0 06-05-2025 CT CERVICAL W/O CONTRAST Normal [facility] ED MED ADMINISTRATION DETAIL on 06-05-2025 ED MED ADMINISTRATION DETAIL Normal [facility] ED NURSES CLINICAL NOTEon ED NURSES CLINICAL NOTE Normal [facility] ED ORDER SHEET (CPOE ONLY)on 06-05-2025 ED ORDER SHEET (CPOE ONLY) Normal [facility] ED PHYSICIAN CLINICAL REPORT on 06-05-2025 ED PHYSICIAN CLINICAL REPORT Normal [facility] ED SUPER BILLon 06-05-2025 ED SUPER BILL Normal [facility] ED VISIT SUMMARYon ED VISIT SUMMARY Normal [facility] ED VITALS FLOW SHEETon 06-05 ED VITALS FLOW SHEET Normal [facility] HIP COMPLETE LT MIN 2 VIEWS W/PELVISon 06-05-2025 HIP COMPLETE LT MIN 2 VIEWS W/PELVIS Normal [facility] C-REACTIVE PROTEINon 025 CRP 1.38 mg/dl High 0.00 - 0.90 [facility] Comment on above: Performed By: #### 2 45734 ####[facility],[address] [place] [address] CBC + DIFFon 05-05-2025 Baso # 0.02 x10EE3/UL Normal 0.00 - 0.10 [facility] Comment on above: Performed By: #### 2 99430 ####[facility],[address] [place] [address] Basophils/100 WBC (Bld) 0.3 % Normal 0.0 - 2.0 [facility] Comment on above: Performed By: #### 2 58935 ####[facility],[address] [place] [address] CBC + DIFF Normal [facility] Comment on above: Result Comment: CBC- COMPLETE BLOOD COUNT Performed By: #### 2 61229 ####[facility],[address] [place] [address] EO # 0.02 x10EE3/UL Normal 0.00 - 0.50 [facility] Comment on above: Performed By: #### 2 76881 ####[facility],[address] [place] [address] Eosinophils/100 WBC (Bld) 0.2 % Normal 0.0 - 7.0 [facility] Comment on above: Performed By: #### 2 80414 ####[facility],[address] [place] [address] Erythrocyte distribution width (RBC) [Ratio] 16.0 % High 12.0 - 15.6 [facility] Comment on above: Performed By: #### 2 53974 ####[facility],[address] [place] [address] Hematocrit (Bld) [Volume fraction] 37.6 % Normal 34.0 - 46.0 [facility] Comment on above: Performed By: #### 2 73776 ####[facility],[address] [place] [address] Hemoglobin (Bld) [Mass/Vol] 12.4 g/dL Normal 12.0 - 16.0 [facility] Comment on above: Performed By: #### 2 18841 ####[facility],[address] [place] [address] Lymph # 2.23 x10EE3/UL Normal 0.80 - 2.80 [facility] Comment on above: Performed By: #### 2 28802 ####[facility],[address] [place] [address] Lymphocytes/100 WBC (Bld) 25.3 % Normal 20.0 - 45.0 [facility] Comment on above: Performed By: #### 2 17730 ####[facility],[address] [place] [address] MANUAL DIFF N/A Normal [facility] Comment on above: Performed By: #### 2 99587 ####[facility],[address] [place] [address] MCH (RBC) [Entitic mass] 25 pg Low 27 - 33 [facility] Comment on above: Performed By: #### 2 73634 ####[facility],[address] [place] [address] MCHC 33 X10 3 Normal 32 - 36 [facility] Comment on above: Performed By: #### 2 48351 ####[facility],[address] [place] [address] MCV (RBC) [Entitic vol] 76 fL Low 80 - 99 [facility] Comment on above: Performed By: #### 2 64969 ####[facility],[address] [place], [place] [id number] [place] # 0.65 x10EE3/UL Normal 0.20 - 1.00 [facility] Comment on above: Performed By: #### 2 340[address] ####[place] [address] MONOS % 7.4 % Normal 0.0 - 10.0 [facility] Comment on above: Performed By: #### 2 04591 ####[facility],[address] [place] [address] Morphology Arnie (Bld) [Interp] N/A Normal [facility] Comment on above: Performed By: #### 2 18977 ####[facility],[address] [place] [address] Neut # 5.90 x10EE3/UL Normal 1.50 - 7.10 [facility] Comment on above: Performed By: #### 2 92822 ####[facility],[address] [place] [address] Neutrophils/100 WBC (Bld) 66.9 % Normal 46.0 - 76.0 [facility] Comment on above: Performed By: #### 2 72831 ####[facility],[address] [place] [address] PLATELET 376 x10EE3/UL Normal 150 - 450 [facility] Comment on above: Performed By: #### 2 54982 ####[facility],[address] [place] [address] Platelet mean volume (Bld) [Entitic vol] 7.5 fL Normal 6.6 - 10.5 [facility] Comment on above: Result Comment: AUTO MATED DIFFERENTIAL Performed By: #### 2 98271 ####[facility],[address] [place] [address] RBC 4.96 x 10EE6/UL Normal 4.10 - 5.30 [facility] Comment on above: Performed By: #### 2 32988 ####[facility],[address] [place] [address] WBC 8.8 x 10EE3/UL Normal 4.5 - 10.8 [facility] Comment on above: Performed By: #### 2 46662 ####[facility],[address] [place], [place] [id number] CMP with eGFRon 05-05-2025 AGE 30 years Normal [facility] Comment on above: Performed By: #### 2 55309 ####[facility],[address] [place] [address] Albumin [Mass/Vol] 3.2 g/dL Low 3.4 - 5.0 [facility] Comment on above: Performed By: #### 2 90140 ####[facility],[address] [place] [address] Albumin/Globulin [Mass ratio] 0.7 {ratio} Low 0.9 - 1.6 [facility] Comment on above: Performed By: #### 2 75088 ####[facility],[address] [place], [place] [id number] ALK PHOS 105 U/L Normal 46 - 116 [facility] Comment on above: Performed By: #### 2 64638 ####[facility],[address] [place], [place] [id number] ALT [Catalytic activity/Vol] 25 U/L Normal 16 - 63 [facility] Comment on above: Performed By: #### 2 20318 ####[facility],[address] [place] [address] Anion gap [Moles/Vol] 13 mmol/L Normal 10 - 20 [facility] Comment on above: Performed By: #### 2 56020 ####[facility],[address] [place], [place] [id number] AST [Catalytic activity/Vol] 28 U/L Normal 13 - 39 [facility] Comment on above: Performed By: #### 2 14432 ####[address] [address] B/C RATIO 8 ratio Normal 0 - 30 [facility] Comment on above: Performed By: #### 2 84631 ####[facility],[address] [place] [address] Bilirubin [Mass/Vol] 0.9 mg/dL Normal 0.2 - 1.0 [facility] Comment on above: Performed By: #### 2 09131 ####[facility],[address] [place] [address] Calcium [Mass/Vol] 8.4 mg/dL Low 8.5 - 10.1 [facility] Comment on above: Performed By: #### 2 00553 ####[facility],[address] [place] [address] Chloride [Moles/Vol] 102 mmol/L Normal 98 - 107 [facility] Comment on above: Performed By: #### 2 27658 ####[facility],[address] [place] [address] CMP with eGFR Normal [facility] Comment on above: Result Comment: COMP REHENSIVE METABOLIC PANEL Performed By: #### 2 99423 ####[place] [address] CO2 [Moles/Vol] 28.1 mmol/L Normal 21.0 - 32.0 [facility] Comment on above: Performed By: #### 2 26184 ####[facility],[address] [place] [address] Creatinine [Mass/Vol] 0.97 mg/dL Normal 0.55 - 1.02 [facility] Comment on above: Performed By: #### 2 38145 ####[facility],[address] [place], [place] [address] GFR/1.73 sq M.predicted among non-blacks MDRD (S/P/Bld) [Vol rate/Area] mL/min/{1.73_m2} Normal 60 - 999 [facility] Comment on above: Performed By: #### 2 39485 ####[place] [address] Result Comment: ACCO RDING TO THE NATIONAL KIDNEY DISEASE EDUCATION PROGRAM(NKDE), A NORMAL eGFRIS A VALUE GREATER THAN OR EQUAL TO 60 ML/MIN/1.73 SQ METERS.CHRONIC KIDNEY DISEASE: <60mL/MIN/1.73 SQ METERSKIDNEY FAILURE: <15mL/MIN/1.73 SQ METERSTHIS TEST SHOULD ONLY BE USED FOR PATIENTS 18 YEARS OF AGE AND OLDER. Globulin (S) [Mass/Vol] 4.7 g/dL High 1.5 - 3.8 [facility] Comment on above: Performed By: #### 2 48874 ####[facility],[address] [place] [address] Glucose [Mass/Vol] 90 mg/dL Normal 74 - 106 [facility] Comment on above: Performed By: #### 2 15932 ####[facility],[address] [place] [address] Potassium [Moles/Vol] 4.4 mmol/L Normal 3.5 - 5.1 [facility] Comment on above: Performed By: #### 2 23654 ####[facility],[address] [place] [address] Protein [Mass/Vol] 7.9 g/dL Normal 6.4 - 8.2 [facility] Comment on above: Performed By: #### 2 82368 ####[facility],[address] [place] [address] Sodium [Moles/Vol] 139 mmol/L Normal 136 - 145 [facility] Comment on above: Performed By: #### 2 05002 ####[facility],[address] [place] [address] Urea nitrogen [Mass/Vol] 8 mg/dL Normal 7 - 18 [facility] Comment on above: Performed By: #### 2 75190 ####[facility],[address] [place] [address] CULTURE BLOOD [NBA]on Microscopic examination of blood, culture CULTURE BLOOD [NBA] _BLOOD CULTURE_ [facility] AND ATTACHMENTS FOR SCANNED REPORT 05/12/25.0931.DNP.COMPL ETE Normal [facility] Comment on above: Performed By: #### 2 79323 ####[facility],[address] [place] [address] ED MED ADMINISTRATION DETAIL on 05-05-2025 ED MED ADMINISTRATION DETAIL Normal [facility] ED NURSES CLINICAL NOTEon ED NURSES CLINICAL NOTE Normal [facility] ED ORDER SHEET (CPOE ONLY)on 05-05-2025 ED ORDER SHEET (CPOE ONLY) Normal [facility] ED PHYSICIAN CLINICAL REPORT on 05-05-2025 ED PHYSICIAN CLINICAL REPORT Normal [facility] ED SUPER BILLon 05-05-2025 ED SUPER BILL Normal [facility] ED VISIT SUMMARYon ED VISIT SUMMARY Normal [facility] ED VITALS FLOW SHEETon 05-05 ED VITALS FLOW SHEET Normal [facility] LACTATEon 05-05-2025 Lactate [Moles/Vol] 2.1 mmol/L High 0.4 - 2.0 [facility] Comment on above: Result Comment: LACT ATE 3 HR NOTIFIED TO: _RACHEL 05/05/25.1256.CWB. . . LACTATE 3 HR NOTIFIED BY: _CB 05/05/25.1256.CWB. . . Performed By: #### 2 48646 ####[facility],[address] [place] [address] NT-proBNPon 05-05-2025 Natriuretic peptide B (Bld) [Mass/Vol] 20 pg/mL Normal 0 - 125 [facility] Comment on above: Performed By: #### 2 88619 ####[facility],[address] [place] [address] TSHon 05-05-2025 TSH Qn 0.16 m[IU]/L Low 0.35 - 3.74 [facility] Comment on above: Performed By: #### 2 82813 ####[facility],[address] [facility] [address] Basic Metabolic Profile (BMP )on 02-23-2025 BUN Normal 4-19 [facility] Comment on above: Result Comment: Canc elled via OM: Order cancelled - Patient discharged Performed By: #### L 500.2500 ####[facility] [address] [place], [address] BUN/CRE Normal 10-20 [facility] Comment on above: Result Comment: Canc elled via OM: Order cancelled - Patient discharged Performed By: #### L 500.2500 ####[facility] [address] [place], [address] Calcium Normal 7.6-11.0 [facility] Comment on above: Result Comment: Canc elled via OM: Order cancelled - Patient discharged Performed By: #### L 500.2500 ####[facility] [address] [place], [address] CL Normal 98-108 [facility] Comment on above: Result Comment: Canc elled via OM: Order cancelled - Patient discharged Performed By: #### L 500.2500 ####[facility] [address] [place], [address] CO2 Normal 21.0-32.0 [facility] Comment on above: Result Comment: Canc elled via OM: Order cancelled - Patient discharged Performed By: #### L 500.2500 ####[facility] [address] [place], [address] CREAT,SERUM Normal 0.70-1.20 [facility] Comment on above: Result Comment: Canc elled via OM: Order cancelled - Patient discharged Performed By: #### L 500.2500 ####[facility] [address] [place], [address] eGFR Normal >60 [facility] Comment on above: Result Comment: Canc elled via OM: Order cancelled - Patient discharged Performed By: #### L 500.2500 ####[facility] [address] [place], [address] GAP Normal 5-15 [facility] Comment on above: Result Comment: Canc elled via OM: Order cancelled - Patient discharged Performed By: #### L 500.2500 ####[facility] [address] [place], [address] GLU Normal 70-99 [facility] Comment on above: Result Comment: Canc elled via OM: Order cancelled - Patient discharged Performed By: #### L 500.2500 ####[facility] [address] [place], [address] Potassium Normal 3.3-5.1 [facility] Comment on above: Result Comment: Canc elled via OM: Order cancelled - Patient discharged Performed By: #### L 500.2500 ####[facility] [address] [place], [address] Basic Metabolic Profile (BMP) Normal 133-145 [facility] Comment on above: Result Comment: Canc elled via OM: Order cancelled - Patient discharged Performed By: #### L 500.2500 ####[facility] [address] [place], [address] CBC-Complete Blood Cnt No Di ffon 02-23-2025 HCT Normal 37-47 [facility] Comment on above: Result Comment: Canc elled via OM: Order cancelled - Patient discharged Performed By: #### L 100.0500 ####[facility] [address] [place], [address] HGB Normal 12.0-15.0 [facility] Comment on above: Result Comment: Canc elled via OM: Order cancelled - Patient discharged Performed By: #### L 100.0500 ####[facility] [address] [place], [address] MCH Normal 27.0-32.0 [facility] Comment on above: Result Comment: Canc elled via OM: Order cancelled - Patient discharged Performed By: #### L 100.0500 ####[facility] [address] [place], [address] MCHC Normal 32-36 [facility] Comment on above: Result Comment: Canc elled via OM: Order cancelled - Patient discharged Performed By: #### L 100.0500 ####[facility] [address] [place], [address] MCV Normal 81-99 [facility] Comment on above: Result Comment: Canc elled via OM: Order cancelled - Patient discharged Performed By: #### L 100.0500 ####[facility] [address] [place], [address] PLT Normal 150-450 [facility] Comment on above: Result Comment: Canc elled via OM: Order cancelled - Patient discharged Performed By: #### L 100.0500 ####[facility] [address] [place], [address] RBC Normal 4.2-5.4 [facility] Comment on above: Result Comment: Canc elled via OM: Order cancelled - Patient discharged Performed By: #### L 100.0500 ####[facility] [address] [place], [address] RDW CV Normal 11.6-14.6 [facility] Comment on above: Result Comment: Canc elled via OM: Order cancelled - Patient discharged Performed By: #### L 100.0500 ####[facility] [address] [place], [address] RDW SD Normal 35.1-43.9 [facility] Comment on above: Result Comment: Canc elled via OM: Order cancelled - Patient discharged Performed By: #### L 100.0500 ####[facility] [address] [place], [address] WBC Normal 4.4-11.0 [facility] Comment on above: Result Comment: Canc elled via OM: Order cancelled - Patient discharged Performed By: #### L 100.0500 ####[facility] [address] [place], [address] Basic Metabolic Profile (BMP )on 02-21-2025 BUN Normal 4-19 [facility] Comment on above: Result Comment: Canc elled via OM: Order cancelled - Patient discharged Performed By: #### L 500.2500 ####[facility] [address] [place], [address] BUN/CRE Normal 10-20 [facility] Comment on above: Result Comment: Canc elled via OM: Order cancelled - Patient discharged Performed By: #### L 500.2500 ####[facility] [address] [place], [address] Calcium Normal 7.6-11.0 [facility] Comment on above: Result Comment: Canc elled via OM: Order cancelled - Patient discharged Performed By: #### L 500.2500 ####[facility] [address] [place], [address] CL Normal 98-108 [facility] Comment on above: Result Comment: Canc elled via OM: Order cancelled - Patient discharged Performed By: #### L 500.2500 ####[facility] [address] [place], [address] CO2 Normal 21.0-32.0 [facility] Comment on above: Result Comment: Canc elled via OM: Order cancelled - Patient discharged Performed By: #### L 500.2500 ####[facility] [address] [place], [address] CREAT,SERUM Normal 0.70-1.20 [facility] Comment on above: Result Comment: Canc elled via OM: Order cancelled - Patient discharged Performed By: #### L 500.2500 ####[facility] [address] [place], [address] eGFR Normal >60 [facility] Comment on above: Result Comment: Canc elled via OM: Order cancelled - Patient discharged Performed By: #### L 500.2500 ####[facility] [address] [place], [address] GAP Normal 5-15 [facility] Comment on above: Result Comment: Canc elled via OM: Order cancelled - Patient discharged Performed By: #### L 500.2500 ####[facility] [address] [place], [address] GLU Normal 70-99 [facility] Comment on above: Result Comment: Canc elled via OM: Order cancelled - Patient discharged Performed By: #### L 500.2500 ####[facility] [address] [place], [address] Potassium Normal 3.3-5.1 [facility] Comment on above: Result Comment: Canc elled via OM: Order cancelled - Patient discharged Performed By: #### L 500.2500 ####[facility] [address] [place], [address] Basic Metabolic Profile (BMP) Normal 133-145 [facility] Comment on above: Result Comment: Canc elled via OM: Order cancelled - Patient discharged Performed By: #### L 500.2500 ####[facility] [address] [place], [address] CBC-Complete Blood Cnt No Di ffon 02-21-2025 HCT Normal 37-47 [facility] Comment on above: Result Comment: Canc elled via OM: Order cancelled - Patient discharged Performed By: #### L 100.0500 ####[facility] [address] [place], [address] HGB Normal 12.0-15.0 [facility] Comment on above: Result Comment: Canc elled via OM: Order cancelled - Patient discharged Performed By: #### L 100.0500 ####[facility] [address] [place], [address] MCH Normal 27.0-32.0 [facility] Comment on above: Result Comment: Canc elled via OM: Order cancelled - Patient discharged Performed By: #### L 100.0500 ####[facility] [address] [place], [address] MCHC Normal 32-36 [facility] Comment on above: Result Comment: Canc elled via OM: Order cancelled - Patient discharged Performed By: #### L 100.0500 ####[facility] [address] [place], [address] MCV Normal 81-99 [facility] Comment on above: Result Comment: Canc elled via OM: Order cancelled - Patient discharged Performed By: #### L 100.0500 ####[facility] [address] [place], [address] PLT Normal 150-450 [facility] Comment on above: Result Comment: Canc elled via OM: Order cancelled - Patient discharged Performed By: #### L 100.0500 ####[facility] [address] [place], [address] RBC Normal 4.2-5.4 [facility] Comment on above: Result Comment: Canc elled via OM: Order cancelled - Patient discharged Performed By: #### L 100.0500 ####[facility] [address] [place], [address] RDW CV Normal 11.6-14.6 [facility] Comment on above: Result Comment: Canc elled via OM: Order cancelled - Patient discharged Performed By: #### L 100.0500 ####[facility] [address] [place], [address] RDW SD Normal 35.1-43.9 [facility] Comment on above: Result Comment: Canc elled via OM: Order cancelled - Patient discharged Performed By: #### L 100.0500 ####[facility] [address] [place], [address] WBC Normal 4.4-11.0 [facility] Comment on above: Result Comment: Canc elled via OM: Order cancelled - Patient discharged Performed By: #### L 100.0500 ####[facility] [address] [place], [address] Bedside Glucoseon 02-20-2025 FINGERSTICK GLU 110 mg/dL High 74-106 [facility] Comment on above: Result Comment: NANI GEMENT OF PATIENT CARE PER NURSING PROTOCOL Performed By: #### L 501.080 ####[facility] [address] [place], [address] FINGERSTICK GLU 90 mg/dL Normal 74[address] [place] [address] Comment on above: Result Comment: NANI GEMENT OF PATIENT CARE PER NURSING PROTOCOL Performed By: #### L 501.080 ####[facility] [address] [place], [address] Discharge Instructionon 05-0 Discharge Instruction Normal [facility] Glucose measurement at bedsi deOrdered By: Robbin Hanks on 02-20-2025 Glucose [Mass/Vol] 110 mg/dL High 74-106 [facility] Comment on above: MANAGEMENT OF PATIEN T CARE PER NURSING PROTOCOL Anion gap in Serum or Plasma Ordered By: Robbin Hanks on 02-19-2025 Anion gap [Moles/Vol] 11 mmol/L 5-15 [facility] BUN/creatinine ratioOrdered By: Robbin Hanks on 02-19-2025 Urea nitrogen/Creatinine [Mass ratio] 8.2 mg/mg Low 10-20 [facility] Basic Metabolic Profile (BMP )on 02-19-2025 BUN/CRE 8.2 RATIO Low 10-20 [facility] Comment on above: Performed By: #### L 500.2500 ####[facility] [address] [place], [address] Calcium [Mass/Vol] 8.9 mg/dL Normal 7.6-11.0 [facility] Comment on above: Performed By: #### L 500.2500 ####[facility] [address] [place], [address] Chloride [Moles/Vol] 106 mmol/L Normal 98-108 [facility] Comment on above: Performed By: #### L 500.2500 ####[facility] [address] [place], [address] CO2 [Moles/Vol] 24.8 mmol/L Normal 21.0-32.0 [facility] Comment on above: Performed By: #### L 500.2500 ####[facility] [address] [place], [address] Creatinine [Mass/Vol] 0.80 mg/dL Normal 0.70-1.20 [facility] Comment on above: Performed By: #### L 500.2500 ####[facility] [address] [place], [address] ECRCL 109.00 ml/min Normal 50-250 [facility] Comment on above: Performed By: #### L 500.2500 ####[facility] [address] [place], [address] GAP 11 Normal 5-15 [facility] Comment on above: Performed By: #### L 500.2500 ####[facility] [address] [place], [address] GFR/1.73 sq M.predicted among non-blacks MDRD (S/P/Bld) [Vol rate/Area] 102 mL/min/{1.73_m2} Normal >60 [facility] Comment on above: Result Comment: mL/m in/1.73m2 CKD-EPI Creatinine Equation (2020) Performed By: #### L 500.2500 ####[facility] [address] [place], [address] Glucose [Mass/Vol] 104 mg/dL High 70-99 [facility] Comment on above: Performed By: #### L 500.2500 ####[facility] [address] [place], [address] Potassium [Moles/Vol] 3.2 mmol/L Low 3.3-5.1 [facility] Comment on above: Performed By: #### L 500.2500 ####[facility] [address] [place], [address] Sodium [Moles/Vol] 141 mmol/L Normal 133-145 [facility] Comment on above: Performed By: #### L 500.2500 ####[facility] [address] [place], [address] Urea nitrogen [Mass/Vol] 7 mg/dL Normal 4-19 [facility] Comment on above: Performed By: #### L 500.2500 ####[facility] [address] [place], [address] Bedside Glucoseon 02-19-2025 FINGERSTICK GLU 134 mg/dL High 74-106 [facility] Comment on above: Result Comment: NANI TREVIÑO OF PATIENT CARE PER NURSING PROTOCOL Performed By: #### L 501.080 ####[facility] [address] [place], [address] FINGERSTICK GLU 137 mg/dL High 74-106 [facility] Comment on above: Result Comment: NANI GEMENT OF PATIENT CARE PER NURSING PROTOCOL Performed By: #### L 501.080 ####[facility] [address] [place], [address] FINGERSTICK GLU 110 mg/dL High 74-106 [facility] Comment on above: Result Comment: NANI GEMENT OF PATIENT CARE PER NURSING PROTOCOL Performed By: #### L 501.080 ####[facility] [address] [place], [address] CBC-Complete Blood Cnt No Di ffon 02-19-2025 Erythrocyte distribution width (RBC) [Ratio] 17.1 % High 11.6-14.6 [facility] Comment on above: Performed By: #### L 100.0500 ####[facility] [address] [place], [address] Hematocrit (Bld) [Volume fraction] 33.4 % Low 37-47 [facility] Comment on above: Performed By: #### L 100.0500 ####[facility] [address] [place], [address] Hemoglobin (Bld) [Mass/Vol] 10.7 g/dL Low 12.0-15.0 [facility] Comment on above: Performed By: #### L 100.0500 ####[facility] [address] [place], [address] MCH (RBC) [Entitic mass] 24.9 pg Low 27.0-32.0 [facility] Comment on above: Performed By: #### L 100.0500 ####[facility] [address] [place], [address] MCHC (RBC) [Mass/Vol] 32.0 g/dL Normal 32-36 [facility] Comment on above: Performed By: #### L 100.0500 ####[facility] [address] [place], [address] MCV (RBC) [Entitic vol] 77.9 fL Low 81-99 [facility] Comment on above: Performed By: #### L 100.0500 ####[facility] [address] [place], [address] Platelet mean volume (Bld) [Entitic vol] 10.0 fL Normal 6.2-12.0 [facility] Comment on above: Performed By: #### L 100.0500 ####[facility] [address] [place], [address] Platelets (Bld) [#/Vol] 355 10*3/uL Normal 150-450 [facility] Comment on above: Performed By: #### L 100.0500 ####[facility] [address] [place], [address] RBC (Bld) [#/Vol] 4.29 10*6/uL Normal 4.2-5.4 [facility] Comment on above: Performed By: #### L 100.0500 ####[facility] [address] [place], [address] RDW SD 48.3 fl High 35.1-43.9 [facility] Comment on above: Performed By: #### L 100.0500 ####[facility] [address] [place], [address] WBC (Bld) [#/Vol] 9.7 10*3/uL Normal 4.4-11.0 [facility] Comment on above: Performed By: #### L 100.0500 ####[facility] [address] [place], [address] Carbon dioxide, total [Moles /volume] in Central venous bloodOrdered By: Robbin Hanks on 02-19-2025 CO2 [Moles/Vol] 24.8 mmol/L 21.0-32.0 [facility] Chloride assayOrdered By: Caro Hanks on 02-19-2025 Chloride [Moles/Vol] 106 mmol/L 98-108 [facility] Erythrocyte distribution wid th ratioOrdered By: Robbin Hanks on 02-19-2025 Erythrocyte distribution width (RBC) [Ratio] 17.1 % High 11.6-14.6 [facility] Erythrocyte distribution wid th standard deviationOrdered By: Robbin Hanks on 02-19-2025 Erythrocyte distribution width (RBC) [Ratio] 48.3 fl High 35.1-43.9 [facility] Glomerular filtration rate ( GFR) estimation/1.73 sq m using serum, plasma, or whole bOrdered By: Robbin Hanks on 02-19-2025 GFR/1.73 sq M.predicted among non-blacks MDRD (S/P/Bld) [Vol rate/Area] 102 mL/min/{1.73_m2} >60 [facility] Comment on above: mL/min/1.73m2 CKD-EP I Creatinine Equation (2020) Hematocrit Auto (Bld) [Volum e fraction]Ordered By: Robbin Hanks on 02-19-2025 Hematocrit (Bld) [Volume fraction] 33.4 % Low 37-47 [facility] Hemoglobin measurementOrdere d By: Robibn Hanks on 02-19-2025 Hemoglobin (Bld) [Mass/Vol] 10.7 g/dL Low 12.0-15.0 [facility] MCV (mean corpuscular volume ) determinationOrdered By: Robbin Hanks 02-19-2025 MCV (RBC) [Entitic vol] 77.9 fL Low 81-99 [facility] Mean corpuscular hemoglobin (MCH) determinationOrdered By: Robbin Hanks on 02-19-2025 MCH (RBC) [Entitic mass] 24.9 pg Low 27.0-32.0 [facility] Mean corpuscular hemoglobin concentration (MCHC) determinationOrdered By: Robbin Hanks 02-19-2025 MCHC (RBC) [Mass/Vol] 32.0 g/dL 32-36 [facility] Mean platelet volume determi nationOrdered By: Robbin Hanks 02-19-2025 Platelet mean volume (Bld) [Entitic vol] 10.0 fL 6.2-12.0 [facility] Platelet countOrdered By: Caro Hanks on 02-19-2025 Platelets (Bld) [#/Vol] 355 10*3/uL 150-450 [facility] Potassium measurement (mass/ volume)Ordered By: Robbin Hanks on 02-19-2025 Potassium (Unsp spec) [Mass/Vol] 3.2 mmol/L Low 3.3-5.1 [facility] RBC Auto (Bld) [#/Vol]Ordere d By: Robbin Hanks on 02-19-2025 RBC (Bld) [#/Vol] 4.29 10*6/uL 4.2-5.4 [facility] Serum creatinine measurement (mass/volume)Ordered By: Robbin Hanks on 02-19-2025 Creatinine [Mass/Vol] 0.80 mg/dL 0.70-1.20 [facility] Serum glucose measurement (m ass/volume)Ordered By: Robbin Hanks on 02-19-2025 Glucose [Mass/Vol] 104 mg/dL High 70-99 [facility] Serum or plasma calcium evert urement (mass/volume)Ordered By: Robbin Hanks on 02-19-2025 Calcium [Mass/Vol] 8.9 mg/dL 7.6-11.0 [facility] Serum or plasma urea nitroge n measurement (mass/volume)Ordered By: Robbin Hanks on 02-19-2025 Urea nitrogen [Mass/Vol] 7 mg/dL 4-19 [facility] Sodium levelOrdered By: Liborio Hanks on 02-19-2025 Sodium [Moles/Vol] 141 mmol/L 133-145 [facility] White blood cell (WBC) count Ordered By: Robbin Hanks on 02-19-2025 WBC (Bld) [#/Vol] 9.7 10*3/uL 4.4-11.0 [facility] Bedside Glucoseon 02-18-2025 FINGERSTICK GLU 117 mg/dL High 74-106 [facility] Comment on above: Result Comment: NANI TREVIÑO OF PATIENT CARE PER NURSING PROTOCOL Performed By: #### L 501.080 ####[facility] [address] [place], [address] FINGERSTICK GLU 99 mg/dL Normal 74-106 [facility] Comment on above: Result Comment: NANI GEMENT OF PATIENT CARE PER NURSING PROTOCOL Performed By: #### L 501.080 ####[facility] [address] [facility] [address] FINGERSTICK GLU 113 mg/dL High 74-106 [facility] Comment on above: Result Comment: NANI GEMENT OF PATIENT CARE PER NURSING PROTOCOL Performed By: #### L 501.080 ####[facility] [address] [facility] [address] 12 Lead EKGon 02-17-2025 12 Lead EKG Normal [facility] Absolute lymphocyte countOrd ered By: Mary Wang on 02-17-2025 Lymphocytes Auto (Unsp spec) [#/Vol] 1.68 10*3/uL 0.83-4.51 [facility] Absolute neutrophil countOrd ered By: Mary Wang on 02-17-2025 Neutrophils (Bld) [#/Vol] 6.1 10*3/uL 2.0-7.7 [facility] Automated lymphocyte count a s percentage of total leukocytesOrdered By: Mary Wang on 02-17-2025 Lymphocytes/100 WBC Auto (Unsp spec) 20.5 % 19-41 [facility] Basophil percentageOrdered B y: Mary Wang on 02-17-2025 Basophils/100 WBC (Bld) 0.1 % 0-1 [facility] Bedside Glucoseon 02-17-2025 FINGERSTICK GLU 108 mg/dL High 74-106 [facility] Comment on above: Result Comment: NANI GEMENT OF PATIENT CARE PER NURSING PROTOCOL Performed By: #### L 501.080 ####[facility] [address] [facility] [address] FINGERSTICK GLU 114 mg/dL High 74-106 [facility] Comment on above: Result Comment: NANI GEMENT OF PATIENT CARE PER NURSING PROTOCOL Performed By: #### L 501.080 ####[facility] [address] [place], [address] FINGERSTICK GLU 122 mg/dL High 74-106 [facility] Comment on above: Result Comment: NANI TREVIÑO OF PATIENT CARE PER NURSING PROTOCOL Performed By: #### L 501.080 ####[facility] [address] [place], [address] Bilirubin, totalOrdered By: Mary Wang on 02-17-2025 Bilirubin [Mass/Vol] 0.91 mg/dL 0.00-1.30 [facility] CBC W/Diff, Automatedon 01-22 Absolute Lymph 1.68 X10 3/uL Normal 0.83-4.51 [facility] Comment on above: Performed By: #### L 100.0100, L501.5200, L501.9520, L501.9985, L500.4050 ####[facility] [address] [place], [address] Absolute Neut 6.1 X10 3/uL Normal 2.0-7.7 [facility] Comment on above: Performed By: #### L 100.0100, L501.5200, L501.9520, L501.9985, L500.4050 ####[facility] [address] [place], [address] Basophils/100 WBC (Bld) 0.1 % Normal 0-1 [facility] Comment on above: Performed By: #### L 100.0100, L501.5200, L501.9520, L501.9985, L500.4050 ####[facility] [address] [place], [address] Eosinophils/100 WBC (Bld) 0.0 % Normal 0-5 [facility] Comment on above: Performed By: #### L 100.0100, L501.5200, L501.9520, L501.9985, L500.4050 ####[facility] [address] [place], [address] Erythrocyte distribution width (RBC) [Ratio] 16.8 % High 11.6-14.6 [facility] Comment on above: Performed By: #### L 100.0100, L501.5200, L501.9520, L501.9985, L500.4050 ####[facility] [address] [place], [address] Hematocrit (Bld) [Volume fraction] 36.2 % Low 37-47 [facility] Comment on above: Performed By: #### L 100.0100, L501.5200, L501.9520, L501.9985, L500.4050 ####[facility] [address] [place], [address] Hemoglobin (Bld) [Mass/Vol] 11.5 g/dL Low 12.0-15.0 [facility] Comment on above: Performed By: #### L 100.0100, L501.5200, L501.9520, L501.9985, L500.4050 ####[facility] [address] [place], [address] IG% 0.400 Normal 0.0-0.9 [facility] Comment on above: Result Comment: IG% - Immature Granulocytes (promyelocytes, myelocytes andmetamyelocytes) > 1% indicates that a LEFT SHIFT is Present. Performed By: #### L 100.0100, L501.5200, L501.9520, L501.9985, L500.4050 ####[facility] [address] [place], [address] Lymphocytes/100 WBC (Bld) 20.5 % Normal 19-41 [facility] Comment on above: Performed By: #### L 100.0100, L501.5200, L501.9520, L501.9985, L500.4050 ####[facility] [address] [place], [address] MCH (RBC) [Entitic mass] 24.7 pg Low 27.0-32.0 [facility] Comment on above: Performed By: #### L 100.0100, L501.5200, L501.9520, L501.9985, L500.4050 ####[facility] [address] [place], [address] MCHC (RBC) [Mass/Vol] 31.8 g/dL Low 32-36 [facility] Comment on above: Performed By: #### L 100.0100, L501.5200, L501.9520, L501.9985, L500.4050 ####[facility] [address] [place], [address] MCV (RBC) [Entitic vol] 77.8 fL Low 81-99 [facility] Comment on above: Performed By: #### L 100.0100, L501.5200, L501.9520, L501.9985, L500.4050 ####[facility] [address] [place], [address] Monocytes/100 WBC (Bld) 5.0 % Normal 0-10 [facility] Comment on above: Performed By: #### L 100.0100, L501.5200, L501.9520, L501.9985, L500.4050 ####[facility] [address] [place], [address] Neutrophils/100 WBC (Bld) 74.0 % High 47-70 [facility] Comment on above: Performed By: #### L 100.0100, L501.5200, L501.9520, L501.9985, L500.4050 ####[facility] [address] [place], [address] Nucleated RBC (Bld) [#/Vol] 0 10*3/uL Normal 0-5 [facility] Comment on above: Performed By: #### L 100.0100, L501.5200, L501.9520, L501.9985, L500.4050 ####[facility] [address] [place], [address] Platelet mean volume (Bld) [Entitic vol] 10.0 fL Normal 6.2-12.0 [facility] Comment on above: Performed By: #### L 100.0100, L501.5200, L501.9520, L501.9985, L500.4050 ####[facility] [address] [place], [address] Platelets (Bld) [#/Vol] 368 10*3/uL Normal 150-450 [facility] Comment on above: Performed By: #### L 100.0100, L501.5200, L501.9520, L501.9985, L500.4050 ####[facility] [address] [place], [address] RBC (Bld) [#/Vol] 4.65 10*6/uL Normal 4.2-5.4 [facility] Comment on above: Performed By: #### L 100.0100, L501.5200, L501.9520, L501.9985, L500.4050 ####[facility] [address] [place], [address] RDW SD 47.5 fl High 35.1-43.9 [facility] Comment on above: Performed By: #### L 100.0100, L501.5200, L501.9520, L501.9985, L500.4050 ####[facility] [address] [place], [address] WBC (Bld) [#/Vol] 8.2 10*3/uL Normal 4.4-11.0 [facility] Comment on above: Performed By: #### L 100.0100, L501.5200, L501.9520, L501.9985, L500.4050 ####[facility] [address] [place], [address] Comprehensive Metabolic Prof ilon 02-17-2025 Albumin [Mass/Vol] 3.9 g/dL Normal 3.5-5.0 [facility] Comment on above: Performed By: #### L 100.0100, L501.5200, L501.9520, L501.9985, L500.4050 ####[facility] [address] [place], [address] Albumin/Globulin [Mass ratio] 1.2 {ratio} Normal 0.9-2.4 [facility] Comment on above: Performed By: #### L 100.0100, L501.5200, L501.9520, L501.9985, L500.4050 ####[facility] [address] [place], [address] ALK PHOS 101 U/L Normal 35-104 [facility] Comment on above: Performed By: #### L 100.0100, L501.5200, L501.9520, L501.9985, L500.4050 ####[facility] [address] [place], [address] ALT [Catalytic activity/Vol] 28 U/L Normal <=34 [facility] Comment on above: Performed By: #### L 100.0100, L501.5200, L501.9520, L501.9985, L500.4050 ####[facility] [address] [place], [address] AST [Catalytic activity/Vol] 23 U/L Normal <=31 [facility] Comment on above: Performed By: #### L 100.0100, L501.5200, L501.9520, L501.9985, L500.4050 ####[facility] [address] [place], [address] Bilirubin [Mass/Vol] 0.91 mg/dL Normal 0.00-1.30 [facility] Comment on above: Performed By: #### L 100.0100, L501.5200, L501.9520, L501.9985, L500.4050 ####[facility] [address] [place], [address] BUN/CRE 4.7 RATIO Low 10-20 [facility] Comment on above: Performed By: #### L 100.0100, L501.5200, L501.9520, L501.9985, L500.4050 ####[facility] [address] [place], [address] Calcium [Mass/Vol] 8.9 mg/dL Normal 7.6-11.0 [facility] Comment on above: Performed By: #### L 100.0100, L501.5200, L501.9520, L501.9985, L500.4050 ####[facility] [address] [place], [address] Chloride [Moles/Vol] 106 mmol/L Normal 98-108 [facility] Comment on above: Performed By: #### L 100.0100, L501.5200, L501.9520, L501.9985, L500.4050 ####[facility] [address] [place], [address] CO2 [Moles/Vol] 24.9 mmol/L Normal 21.0-32.0 [facility] Comment on above: Performed By: #### L 100.0100, L501.5200, L501.9520, L501.9985, L500.4050 ####[facility] [address] [place], [address] Creatinine [Mass/Vol] 0.67 mg/dL Low 0.70-1.20 [facility] Comment on above: Performed By: #### L 100.0100, L501.5200, L501.9520, L501.9985, L500.4050 ####[facility] [address] [place], [address] ECRCL 130.15 ml/min Normal 50-250 [facility] Comment on above: Performed By: #### L 100.0100, L501.5200, L501.9520, L501.9985, L500.4050 ####[facility] [address] [place], [address] GAP 10 Normal 5-15 [facility] Comment on above: Performed By: #### L 100.0100, L501.5200, L501.9520, L501.9985, L500.4050 ####[facility] [address] [place], [address] GFR/1.73 sq M.predicted among non-blacks MDRD (S/P/Bld) [Vol rate/Area] 120 mL/min/{1.73_m2} Normal >60 [facility] Comment on above: Result Comment: mL/m in/1.73m2 CKD-EPI Creatinine Equation (2020) Performed By: #### L 100.0100, L501.5200, L501.9520, L501.9985, L500.4050 ####[facility] [address] [place], [address] Globulin (S) [Mass/Vol] 3.3 g/dL Normal 2.2-4.2 [facility] Comment on above: Performed By: #### L 100.0100, L501.5200, L501.9520, L501.9985, L500.4050 ####[facility] [address] [place], [address] Glucose [Mass/Vol] 115 mg/dL High 70-99 [facility] Comment on above: Performed By: #### L 100.0100, L501.5200, L501.9520, L501.9985, L500.4050 ####[facility] [address] [place], [address] Potassium [Moles/Vol] 3.8 mmol/L Normal 3.3-5.1 [facility] Comment on above: Performed By: #### L 100.0100, L501.5200, L501.9520, L501.9985, L500.4050 ####[facility] [address] [place], [address] Sodium [Moles/Vol] 141 mmol/L Normal 133-145 [facility] Comment on above: Performed By: #### L 100.0100, L501.5200, L501.9520, L501.9985, L500.4050 ####[facility] [address] [place], [address] T PROT 7.2 g/dL Normal 5.9-8.4 [facility] Comment on above: Performed By: #### L 100.0100, L501.5200, L501.9520, L501.9985, L500.4050 ####[facility] [address] [place], [address] Urea nitrogen [Mass/Vol] 3 mg/dL Low 4-19 [facility] Comment on above: Performed By: #### L 100.0100, L501.5200, L501.9520, L501.9985, L500.4050 ####[facility] [address] [place], [address] Eosinophil percentageOrdered By: Mary Wang on 02-17-2025 Eosinophils/100 WBC (Bld) 0.0 % 0-5 [facility] Hemoglobin A1con 02-17-2025 HbA1c (Bld) [Mass fraction] 5.8 % High <=5.6 [facility] Comment on above: Result Comment: Norm al < 5.7 % Prediabetic 5.7 - 6.4 % Diabetic >or= 6.5 % Please note range changes. Performed By: #### L 100.0100, L501.5200, L501.9520, L501.9985, L500.4050 ####[facility] [address] [place], [place], [address] Hemoglobin A1c percentageOrd ered By: Mary Wang on 02-17-2025 HbA1c (Bld) [Mass fraction] 5.8 % High <5.7 [facility] Comment on above: Normal < 5.7 % Predi abetic 5.7 - 6.4 % Diabetic >or= 6.5 % Please note range changes. Immature granulocytes/100 WB C Auto (Bld)Ordered By: Mary Wang on 02-17-2025 Immature granulocytes/100 WBC (Bld) 0.400 % 0.0-0.9 [facility] Comment on above: IG% - Immature Granu locytes (promyelocytes, myelocytes and metamyelocytes) > 1% indicates that a LEFT SHIFT is Present. Laboratory - Chemistry and C hemistry - challengeOrdered By: Mary Wang on 02-17-2025 AST [Catalytic activity/Vol] 23 U/L <32 [facility] Magnesiumon 02-17-2025 Magnesium [Mass/Vol] 1.9 mg/dL Normal 1.5-2.2 [facility] Comment on above: Performed By: #### L 100.0100, L501.5200, L501.9520, L501.9985, L500.4050 ####[facility] [address] [place], [place], [id number] Magnesium measurement (mass/ volume)Ordered By: Mary Wang on 02-17-2025 Magnesium (Unsp spec) [Mass/Vol] 1.9 mg/dL 1.5-2.2 [facility] Monocyte percentageOrdered B y: Mary Wang on 02-17-2025 Monocytes/100 WBC (Bld) 5.0 % 0-10 [facility] Neutrophil percentageOrdered By: Mary Wang on 02-17-2025 Neutrophils/100 WBC (Bld) 74.0 % High 47-70 [facility] Nucleated red blood cell per centageOrdered By: Mary Wang on 02-17-2025 Nucleated RBC/100 WBC (Bld) [Ratio] 0 % 0-5 [facility] Serum globulin measurementOr dered By: Mary Wang on 02-17-2025 Globulin (S) [Mass/Vol] 3.3 g/dL 2.2-4.2 [facility] Serum or plasma alanine hammer otransferase (ALT) measurementOrdered By: Mary Wang on 02-17-2025 ALT [Catalytic activity/Vol] 28 U/L <35 [facility] Serum or plasma albumin evert urement (mass/volume)Ordered By: Mary Wang on 02-17-2025 Albumin [Mass/Vol] 3.9 g/dL 3.5-5.0 [facility] Serum or plasma albumin/glob ulin mass ratioOrdered By: Mary Wang on 02-17-2025 Albumin/Globulin [Mass ratio] 1.2 {ratio} 0.9-2.4 [facility] Serum or plasma alkaline kelsy sphatase measurementOrdered By: Mary Wang on 02-17-2025 ALP [Catalytic activity/Vol] 101 U/L 35-104 [facility] TSH DL <= 0.005 mIU/L QnOrde red By: Mary Wang on 02-17-2025 TSH Qn 10.200 uIU/mL High 0.300-4.200 [facility] Thyroid Stim Hormone (TSH)on 02-17-2025 TSH 10.200 uIU/mL High 0.300-4.200 [facility] Comment on above: Performed By: #### L 100.0100, L501.5200, L501.9519, L501.9985, L500.4050 ####[facility] [address] [place], [place], [id number] Total proteinOrdered By: Angie Wang on 02-17-2025 Protein [Mass/Vol] 7.2 g/dL 5.9-8.4 [facility] 12 Lead EKGon 02-16-2025 12 Lead EKG Normal [facility] Absolute neutrophil countOrd ered By: Agustín Noriega on 02-16-2025 Neutrophils (Bld) [#/Vol] 3.3 10*3/uL 2.0-7.7 [facility] Anion gap in Serum or Plasma Ordered By: Agustín Noriega on 02-16-2025 Anion gap [Moles/Vol] 13 mmol/L 5-15 [facility] Assessment of wrist artery p atency prior to arterial punctureOrdered By: Mary Wang on 02-16-2025 Arterial patency Wrist artery --pre arterial puncture Positive [facility] BUN/creatinine ratioOrdered By: Agustín Noriega on 02-16-2025 Urea nitrogen/Creatinine [Mass ratio] 4.6 mg/mg Low 10-20 [facility] Basophil percentageOrdered B y: Agustín Noriega on 02-16-2025 Basophils/100 WBC (Bld) 0.4 % 0-1 [facility] Bedside Glucoseon 02-16-2025 FINGERSTICK GLU 130 mg/dL High 74-106 [facility] Comment on above: Result Comment: NANI GEMENT OF PATIENT CARE PER NURSING PROTOCOL Performed By: #### L 501.080 ####[facility] [address] [place], [place], [id number] FINGERSTICK GLU 144 mg/dL High 74-106 [facility] Comment on above: Result Comment: NANI GEMENT OF PATIENT CARE PER NURSING PROTOCOL Performed By: #### L 501.080 ####[facility] [address] [place], [place], [id number] Bilirubin Test strip Ql (U)O rdered By: Agustín Noriega on 02-16-2025 Bilirubin Ql (U) Negative Negative [facility] Bilirubin, totalOrdered By: Agustín Noriega on 02-16-2025 Bilirubin [Mass/Vol] 0.94 mg/dL 0.00-1.30 [facility] Blood Gases by CPSon 025 BAILEY TEST Positive Normal [facility] Comment on above: Performed By: #### L 9000.0800 ####[facility] [address] [place], [address] Base excess Calc (Bld) [Moles/Vol] -9 mmol/L Low -2 to +2 [facility] Comment on above: Performed By: #### L 9000.0800 ####[facility] [address] [place], [address] Blood Gas Type ART [facility] Comment on above: Performed By: #### L 9000.0800 ####[facility] [address] [place], [address] CO2 [Moles/Vol] 16 mmol/L [facility] Comment on above: Performed By: #### L 9000.0800 ####[facility] [address] [place], [address] FI02 2.0 [facility] Comment on above: Performed By: #### L 9000.0800 ####[facility] [address] [place], [address] HCO3 (Bld) [Moles/Vol] 14.9 mmol/L Low 22-26 [facility] Comment on above: Performed By: #### L 9000.0800 ####[facility] [address] [place], [address] Mode Not entered [facility] Comment on above: Performed By: #### L 9000.0800 ####[facility] [address] [place], [address] O2 Delivery Dev Cannula [facility] Comment on above: Performed By: #### L 9000.0800 ####[facility] [address] [place], [address] pCO2 21.4 mmHg Low 35-45 [facility] Comment on above: Performed By: #### L 9000.0800 ####[facility] [address] [place], [address] pH (Bld) 7.45 [pH] Normal 7.35-7.45 [facility] Comment on above: Performed By: #### L 9000.0800 ####[facility] [address] [place], [address] PO2 120 mmHG High 75-100 [facility] Comment on above: Performed By: #### L 9000.0800 ####[facility] [address] [place], [address] SITE L Radial Normal [facility] Comment on above: Performed By: #### L 9000.0800 ####[facility] [address] [place], [address] SO2 99 Normal 95-99 [facility] Comment on above: Performed By: #### L 9000.0800 ####[facility] [address] [place], [address] Blood base excess determinat ionOrdered By: Mray Wang on 02-16-2025 Base excess Calc (BldV) [Moles/Vol] -9 mmol/L Low -2-2 [facility] Blood bicarbonate measuremen tOrdered By: Mary Wang on 02-16-2025 HCO3 (Bld) [Moles/Vol] 14.9 mmol/L Low 22-26 [facility] CBC W/Diff, Automatedon 04-2 Absolute Lymph 2.97 X10 3/uL Normal 0.83-4.51 [facility] Comment on above: Performed By: #### L 500.4050, L100.0100, L501.4021, L503.6005 ####[facility] [address] [place], [address] Absolute Neut 3.3 X10 3/uL Normal 2.0-7.7 [facility] Comment on above: Performed By: #### L 500.4050, L100.0100, L501.4021, L503.6005 ####[facility] [address] [place], [address] Basophils/100 WBC (Bld) 0.4 % Normal 0-1 [facility] Comment on above: Performed By: #### L 500.4050, L100.0100, L501.4021, L503.6005 ####[facility] [address] [place], [address] Eosinophils/100 WBC (Bld) 1.7 % Normal 0-5 [facility] Comment on above: Performed By: #### L 500.4050, L100.0100, L501.4021, L503.6005 ####[facility] [address] [place], [address] Erythrocyte distribution width (RBC) [Ratio] 16.7 % High 11.6-14.6 [facility] Comment on above: Performed By: #### L 500.4050, L100.0100, L501.4021, L503.6005 ####[facility] [address] [place], [address] Hematocrit (Bld) [Volume fraction] 38.2 % Normal 37-47 [facility] Comment on above: Performed By: #### L 500.4050, L100.0100, L501.4021, L503.6005 ####[facility] [address] [place], [address] Hemoglobin (Bld) [Mass/Vol] 12.1 g/dL Normal 12.0-15.0 [facility] Comment on above: Performed By: #### L 500.4050, L100.0100, L501.4021, L503.6005 ####[facility] [address] [place], [address] IG% 0.400 Normal 0.0-0.9 [facility] Comment on above: Result Comment: IG% - Immature Granulocytes (promyelocytes, myelocytes andmetamyelocytes) > 1% indicates that a LEFT SHIFT is Present. Performed By: #### L 500.4050, L100.0100, L501.4021, L503.6005 ####[facility] [address] [place], [address] Lymphocytes/100 WBC (Bld) 41.9 % High 19-41 [facility] Comment on above: Performed By: #### L 500.4050, L100.0100, L501.4021, L503.6005 ####[facility] [address] [place], [address] MCH (RBC) [Entitic mass] 24.6 pg Low 27.0-32.0 [facility] Comment on above: Performed By: #### L 500.4050, L100.0100, L501.4021, L503.6005 ####[facility] [address] [place], [address] MCHC (RBC) [Mass/Vol] 31.7 g/dL Low 32-36 [facility] Comment on above: Performed By: #### L 500.4050, L100.0100, L501.4021, L503.6005 ####[facility] [address] [place], [address] MCV (RBC) [Entitic vol] 77.8 fL Low 81-99 [facility] Comment on above: Performed By: #### L 500.4050, L100.0100, L501.4021, L503.6005 ####[facility] [address] [place], [address] Monocytes/100 WBC (Bld) 9.3 % Normal 0-10 [facility] Comment on above: Performed By: #### L 500.4050, L100.0100, L501.4021, L503.6005 ####[facility] [address] [place], [address] Neutrophils/100 WBC (Bld) 46.3 % Low 47-70 [facility] Comment on above: Performed By: #### L 500.4050, L100.0100, L501.4021, L503.6005 ####[facility] [address] [place], [address] Nucleated RBC (Bld) [#/Vol] 0 10*3/uL Normal 0-5 [facility] Comment on above: Performed By: #### L 500.4050, L100.0100, L501.4021, L503.6005 ####[facility] [address] [place], [address] Platelet mean volume (Bld) [Entitic vol] 9.8 fL Normal 6.2-12.0 [facility] Comment on above: Performed By: #### L 500.4050, L100.0100, L501.4021, L503.6005 ####[facility] [address] [place], [address] Platelets (Bld) [#/Vol] 347 10*3/uL Normal 150-450 [facility] Comment on above: Performed By: #### L 500.4050, L100.0100, L501.4021, L503.6005 ####[facility] [address] [place], [address] RBC (Bld) [#/Vol] 4.91 10*6/uL Normal 4.2-5.4 [facility] Comment on above: Performed By: #### L 500.4050, L100.0100, L501.4021, L503.6005 ####[facility] [address] [place], [address] RDW SD 47.2 fl High 35.1-43.9 [facility] Comment on above: Performed By: #### L 500.4050, L100.0100, L501.4021, L503.6005 ####[facility] [address] [place], [address] WBC (Bld) [#/Vol] 7.1 10*3/uL Normal 4.4-11.0 [facility] Comment on above: Performed By: #### L 500.4050, L100.0100, L501.4021, L503.6005 ####[facility] [address] [place], [address] Carbon dioxide, total [Moles /volume] in Central venous bloodOrdered By: Agustín Noriega on 02-16-2025 CO2 [Moles/Vol] 23.4 mmol/L 21.0-32.0 [facility] Chloride assayOrdered By: Ug o Noriega on 02-16-2025 Chloride [Moles/Vol] 102 mmol/L 98-108 [facility] Comprehensive Metabolic Prof ilon 02-16-2025 Albumin [Mass/Vol] 4.3 g/dL Normal 3.5-5.0 [facility] Comment on above: Performed By: #### L 500.4050, L100.0100, L501.4021, L503.6005 ####[facility] [address] [place], [address] Albumin/Globulin [Mass ratio] 1.2 {ratio} Normal 0.9-2.4 [facility] Comment on above: Performed By: #### L 500.4050, L100.0100, L501.4021, L503.6005 ####[facility] [address] [place], [address] ALK PHOS 114 U/L High 35-104 [facility] Comment on above: Performed By: #### L 500.4050, L100.0100, L501.4021, L503.6005 ####[facility] [address] [place], [address] ALT [Catalytic activity/Vol] 32 U/L Normal <=34 [facility] Comment on above: Performed By: #### L 500.4050, L100.0100, L501.4021, L503.6005 ####[facility] [address] [place], [address] AST [Catalytic activity/Vol] 26 U/L Normal <=31 [facility] Comment on above: Performed By: #### L 500.4050, L100.0100, L501.4021, L503.6005 ####[facility] [address] [place], [address] Bilirubin [Mass/Vol] 0.94 mg/dL Normal 0.00-1.30 [facility] Comment on above: Performed By: #### L 500.4050, L100.0100, L501.4021, L503.6005 ####[facility] [address] [place], [address] BUN/CRE 4.6 RATIO Low 10-20 [facility] Comment on above: Performed By: #### L 500.4050, L100.0100, L501.4021, L503.6005 ####[facility] [address] [place], [address] Calcium [Mass/Vol] 9.4 mg/dL Normal 7.6-11.0 [facility] Comment on above: Performed By: #### L 500.4050, L100.0100, L501.4021, L503.6005 ####[facility] [address] [place], [address] Chloride [Moles/Vol] 102 mmol/L Normal 98-108 [facility] Comment on above: Performed By: #### L 500.4050, L100.0100, L501.4021, L503.6005 ####[facility] [address] [place], [address] CO2 [Moles/Vol] 23.4 mmol/L Normal 21.0-32.0 [facility] Comment on above: Performed By: #### L 500.4050, L100.0100, L501.4021, L503.6005 ####[facility] [address] [place], [address] Creatinine [Mass/Vol] 0.82 mg/dL Normal 0.70-1.20 [facility] Comment on above: Performed By: #### L 500.4050, L100.0100, L501.4021, L503.6005 ####[facility] [address] [place], [address] ECRCL 107.02 ml/min Normal 50-250 [facility] Comment on above: Performed By: #### L 500.4050, L100.0100, L501.4021, L503.6005 ####[facility] [address] [place], [address] GAP 13 Normal 5-15 [facility] Comment on above: Performed By: #### L 500.4050, L100.0100, L501.4021, L503.6005 ####[facility] [address] [place], [address] GFR/1.73 sq M.predicted among non-blacks MDRD (S/P/Bld) [Vol rate/Area] 98 mL/min/{1.73_m2} Normal >60 [facility] Comment on above: Result Comment: mL/m in/1.73m2 CKD-EPI Creatinine Equation (2020) Performed By: #### L 500.4050, L100.0100, L501.4021, L503.6005 ####[facility] [address] [place], [address] Globulin (S) [Mass/Vol] 3.6 g/dL Normal 2.2-4.2 [facility] Comment on above: Performed By: #### L 500.4050, L100.0100, L501.4021, L503.6005 ####[facility] [address] [place], [address] Glucose [Mass/Vol] 93 mg/dL Normal 70-99 [facility] Comment on above: Performed By: #### L 500.4050, L100.0100, L501.4021, L503.6005 ####[facility] [address] [place], [address] Potassium [Moles/Vol] 3.4 mmol/L Normal 3.3-5.1 [facility] Comment on above: Performed By: #### L 500.4050, L100.0100, L501.4021, L503.6005 ####[facility] [address] [place], [address] Sodium [Moles/Vol] 138 mmol/L Normal 133-145 [facility] Comment on above: Performed By: #### L 500.4050, L100.0100, L501.4021, L503.6005 ####[facility] [address] [place], [address] T PROT 7.9 g/dL Normal 5.9-8.4 [facility] Comment on above: Performed By: #### L 500.4050, L100.0100, L501.4021, L503.6005 ####[facility] [address] [place], [address] Urea nitrogen [Mass/Vol] 4 mg/dL Normal 4-19 [facility] Comment on above: Performed By: #### L 500.4050, L100.0100, L501.4021, L503.6005 ####[facility] [address] [place], [place], [id number] Emergency Department Summary on 02-16-2025 Emergency Department Summary Normal [facility] Eosinophil percentageOrdered By: Agustín Noriega on 02-16-2025 Eosinophils/100 WBC (Bld) 1.7 % 0-5 [facility] Epithelial cells.squamous LM Ql (Urine sed)Ordered By: Agustín Noriega on 02-16-2025 Epithelial cells.squamous LM.HPF (Urine sed) [#/Area] 0 /[HPF] 5-10 [facility] Erythrocyte distribution wid th (RBC) [Ratio]Ordered By: Agustínlc Noriega on 02-16-2025 Erythrocyte distribution width (RBC) [Entitic vol] 47.2 fL High 35.1-43.9 [facility] Erythrocyte distribution wid th ratioOrdered By: Agustínlc Noriega on 02-16-2025 Erythrocyte distribution width (RBC) [Ratio] 16.7 % High 11.6-14.6 [facility] Estimation of creatinine nj aranceOrdered By: Agustín Noriega on 02-16-2025 Estimated Creatinine Clearance Calc 107.02 ml/min 50-250 [facility] GFR/1.73 sq M.predicted ivy g non-blacks MDRD (S/P/Bld) [Vol rate/Area]Ordered By: Agustín Noriega on 02-16-2025 Estimated GFR (MDRD) Non-Af Amer 98 >60 [facility] Comment on above: mL/min/1.73m2 CKD-EP I Creatinine Equation (2020) Glucose Ql (U)Ordered By: Henry Noriega on 02-16-2025 Urine Glucose (UA) Normal mg/dl Normal [facility] H AND P Exam - Hospitaliston 02-16-2025 H&P Exam - Hospitalist Normal [facility] Hematocrit Auto (Bld) [Volum e fraction]Ordered By: Agustín Noriega on 02-16-2025 Hematocrit (Bld) [Volume fraction] 38.2 % 37-47 [facility] Hemoglobin measurementOrdere d By: Agustín Noriega on 02-16-2025 Hemoglobin (Bld) [Mass/Vol] 12.1 g/dL 12.0-15.0 [facility] Immature granulocytes/100 WB C Auto (Bld)Ordered By: Agustínlc Noriega on 02-16-2025 Immature granulocytes/100 WBC (Bld) 0.400 % 0.0-0.9 [facility] Comment on above: IG% - Immature Granu locytes (promyelocytes, myelocytes and metamyelocytes) > 1% indicates that a LEFT SHIFT is Present. Ketones Test strip Ql (U)Ord ered By: Agustín Noriega on 02-16-2025 Ketones Ql (U) Negative Negative [facility] L499.0042on 02-16-2025 Trop T High Sen < 6 Normal <=14 [facility] Comment on above: Performed By: #### L 499.0042 ####[facility] [address] [place], [address] L499.0043on 02-16-2025 Trop T High Sen < 6 Normal <=14 [facility] Comment on above: Performed By: #### L 499.0043 ####[facility] [address] [place], [address] L501.4021on 02-16-2025 Trop T High Sen 6 ng/L Normal <=14 [facility] Comment on above: Performed By: #### L 500.4050, L100.0100, L501.4021, L503.6005 ####[facility] [address] [place], [address] Laboratory - Chemistry and C hemistry - challengeOrdered By: Agustínlc Noriega on 02-16-2025 AST [Catalytic activity/Vol] 26 U/L <32 [facility] Lactic Acidon 02-16-2025 Lactate [Moles/Vol] 1.9 mmol/L Normal 0.0-2.0 [facility] Comment on above: Performed By: #### L 503.6005 ####[facility] [address] [place], [place], [address] Lactate [Moles/Vol] 2.5 mmol/L Invalid Interpretation Code 0.0-2.0 [facility] Comment on above: Order Comment: Y Result Comment: Crit ical Result(s) Called at 1734: by: RONALDO MARTINO. ??Results read back by same. Performed By: #### L 500.4050, L100.0100, L501.4021, L503.6005 ####[facility] [address] [place], [place], [id number] Lactic acid measurementOrder ed By: Agustínlc Noriega on 02-16-2025 Lactate [Moles/Vol] 1.9 mmol/L 0.0-2.0 [facility] Lactate [Moles/Vol] 2.5 mmol/L High 0.0-2.0 [facility] Comment on above: Critical Result(s) C alled at 1734: by: RONALDO MORRIS. Results read back by same. Lymphocytes Auto (Unsp spec) [#/Vol]Ordered By: Agustínlc Noriega on 02-16-2025 Lymphocytes (Bld) [#/Vol] 2.97 10*3/uL 0.83-4.51 [facility] Lymphocytes/100 WBC Auto (Un sp spec)Ordered By: Agustínlc Noriega on 02-16-2025 Lymphocytes/100 WBC (Bld) 41.9 % High 19-41 [facility] MCV (mean corpuscular volume ) determinationOrdered By: Agustínlc Noriega on 02-16-2025 MCV (RBC) [Entitic vol] 77.8 fL Low 81-99 [facility] Mean corpuscular hemoglobin (MCH) determinationOrdered By: Agustínlc Noriega on 02-16-2025 MCH (RBC) [Entitic mass] 24.6 pg Low 27.0-32.0 [facility] Mean corpuscular hemoglobin concentration (MCHC) determinationOrdered By: Agustín Noriega on 02-16-2025 MCHC (RBC) [Mass/Vol] 31.7 g/dL Low 32-36 [facility] Mean platelet volume determi nationOrdered By: Agustín Noriega on 02-16-2025 Platelet mean volume (Bld) [Entitic vol] 9.8 fL 6.2-12.0 [facility] Measurement, pHOrdered By: Gema Wang on 02-16-2025 pH (Unsp spec) 7.45 [pH] 7.35-7.45 [facility] Microscopic analysis of urin e for red blood cells (RBC)Ordered By: Agustín Noriega on 02-16-2025 Microscopic analysis of urine for red blood cells (RBC) 0-5 SEEN /hpf 0-5 [facility] Urine RBC 0-5 SEEN /hpf 0-5 [facility] Monocyte percentageOrdered B y: Agustín Noriega on 02-16-2025 Monocytes/100 WBC (Bld) 9.3 % 0-10 [facility] Mucus LM Ql (Urine sed)Order ed By: Agustín Noriega on 02-16-2025 Mucus Ql (Urine sed) 0 SEEN /hpf [facility] Neutrophil percentageOrdered By: Agustín Noriega on 02-16-2025 Neutrophils/100 WBC (Bld) 46.3 % Low 47-70 [facility] No Panel InformationOrdered By: Mary Wang on 02-16-2025 Blood Gas Sample Site L Radial [facility] Blood Gas Specimen Type ART [facility] Blood Gas Vent Mode Not entered [facility] Oxygen Delivery Device Cannula [facility] Nucleated red blood cell per centageOrdered By: Agustín Noriega on 02-16-2025 Nucleated RBC/100 WBC (Bld) [Ratio] 0 % 0-5 [facility] Platelet countOrdered By: Henry Noriega on 02-16-2025 Platelets (Bld) [#/Vol] 347 10*3/uL 150-450 [facility] Potassium (Unsp spec) [Mass/ Vol]Ordered By: Agustín Noriega on 02-16-2025 Potassium [Moles/Vol] 3.4 mmol/L 3.3-5.1 [facility] Protein Test strip Ql (U)Ord ered By: Agustín Noriega on 02-16-2025 Protein Ql (U) Negative Negative [facility] RBC Auto (Bld) [#/Vol]Ordere d By: Agustín Noriega on 02-16-2025 RBC (Bld) [#/Vol] 4.91 10*6/uL 4.2-5.4 [facility] Serum creatinine measurement (mass/volume)Ordered By: Agustín Noriega on 02-16-2025 Creatinine [Mass/Vol] 0.82 mg/dL 0.70-1.20 [facility] Serum globulin measurementOr dered By: Agustín Noriega on 02-16-2025 Globulin (S) [Mass/Vol] 3.6 g/dL 2.2-4.2 [facility] Serum glucose measurement (m ass/volume)Ordered By: Agustín Noriega on 02-16-2025 Glucose [Mass/Vol] 93 mg/dL 70-99 [facility] Serum or plasma alanine hammer otransferase (ALT) measurementOrdered By: Agustínlc Noriega on 02-16-2025 ALT [Catalytic activity/Vol] 32 U/L <35 [facility] Serum or plasma albumin evert urement (mass/volume)Ordered By: Agustín Noriega 02-16-2025 Albumin [Mass/Vol] 4.3 g/dL 3.5-5.0 [facility] Serum or plasma albumin/glob ulin mass ratioOrdered By: Agustín Noriega 02-16-2025 Albumin/Globulin [Mass ratio] 1.2 {ratio} 0.9-2.4 [facility] Serum or plasma alkaline kelsy sphatase measurementOrdered By: Agustín Noriega 02-16-2025 ALP [Catalytic activity/Vol] 114 U/L High 35-104 [facility] Serum or plasma calcium evert urement (mass/volume)Ordered By: Agustín Noriega 02-16-2025 Calcium [Mass/Vol] 9.4 mg/dL 7.6-11.0 [facility] Serum or plasma urea nitroge n measurement (mass/volume)Ordered By: Agustín Noriega 02-16-2025 Urea nitrogen [Mass/Vol] 4 mg/dL 4-19 [facility] Sodium levelOrdered By: Agustín Noriega 02-16-2025 Sodium [Moles/Vol] 138 mmol/L 133-145 [facility] Squamous epithelial cells de tection in urine sediment by light microscopyOrdered By: Agustín Noriega on 02-16-2025 Epithelial cells.squamous LM Ql (Urine sed) 0-5 SEEN /hpf 5-10 [facility] Total carbon dioxide measure mentOrdered By: Mary Wang on 02-16-2025 CO2 [Moles/Vol] 16 mmol/L [facility] Total proteinOrdered By: Agustín Noriega on 02-16-2025 Protein [Mass/Vol] 7.9 g/dL 5.9-8.4 [facility] Troponin T.cardiac High sens itivity method [Mass/Vol]Ordered By: Agustín Noriega on 02-16-2025 Troponin T High Sensitivity 2 Hour < 6 ng/L <14 [facility] Troponin T High Sensitivity 6 ng/L <14 [facility] Troponin T.cardiac [Mass/vol ume] in Serum or Plasma by High sensitivity methodOrdered By: Agustín Noriega on 02-16-2025 Troponin T.cardiac High sensitivity method [Mass/Vol] < 6 ng/L <14 [facility] Troponin T.cardiac High sensitivity method [Mass/Vol] 6 ng/L <14 [facility] Urinalysis, Completeon 02-16 EPI,SQUAMOUS 0-5 SEEN Normal 5-10 [facility] Comment on above: Order Comment: CLEAN CATCH Performed By: #### L 400.0001 ####[facility] [address] [facility] [address] RBC 0-5 SEEN Normal 0-5 [facility] Comment on above: Order Comment: CLEAN CATCH Performed By: #### L 400.0001 ####[facility] [address] [facility] [address] WBC 0-5 SEEN Normal 0-5 [facility] Comment on above: Order Comment: CLEAN CATCH Performed By: #### L 400.0001 ####[facility] [address] [place], [address] BILIRUBIN URINE Negative Normal Negative [facility] Comment on above: Order Comment: CLEAN CATCH Performed By: #### L 400.0001 ####[facility] [address] [place], [address] GLUCOSE, UR Normal Normal Normal [facility] Comment on above: Order Comment: CLEAN CATCH Performed By: #### L 400.0001 ####[facility] [address] [place], [address] KETONE UR Negative Normal Negative [facility] Comment on above: Order Comment: CLEAN CATCH Performed By: #### L 400.0001 ####[facility] [address] [place], [address] LEUK ESTERASE 25 /ul Abnormal Negative [facility] Comment on above: Order Comment: CLEAN CATCH Performed By: #### L 400.0001 ####[facility] [address] [place], [address] OCCULT BLOOD-UR 10 /ul Abnormal Negative [facility] Comment on above: Order Comment: CLEAN CATCH Performed By: #### L 400.0001 ####[facility] [address] [place], [address] pH UR 6.0 Normal 5.0 - 8.0 [facility] Comment on above: Order Comment: CLEAN CATCH Performed By: #### L 400.0001 ####[facility] [address] [place], [address] PROT DIPSTX Negative Normal Negative [facility] Comment on above: Order Comment: CLEAN CATCH Performed By: #### L 400.0001 ####[facility] [address] [place], [address] SP.GR. DIPSTX 1.005 Normal 1.002-1.030 [facility] Comment on above: Order Comment: CLEAN CATCH Performed By: #### L 400.0001 ####[facility] [address] [place], [address] UROBILI Normal Normal Normal [facility] Comment on above: Order Comment: CLEAN CATCH Performed By: #### L 400.0001 ####[facility] [address] [place], [address] BACTERIA 0 SEEN Normal None Seen [facility] Comment on above: Order Comment: CLEAN CATCH Performed By: #### L 400.0001 ####[facility] [address] [place], [address] Mucus Ql (Urine sed) 0 SEEN Normal [facility] Comment on above: Order Comment: CLEAN CATCH Performed By: #### L 400.0001 ####[facility] [address] [facility] [id number] Urine blood detectionOrdered By: Agustín Hari on 02-16-2025 Urine Occult Blood 10 /ul High Negative [facility] Urine clarityOrdered By: Agustínlc Noriega on 02-16-2025 Clarity (U) Clear Normal Clear [facility] Comment on above: Order Comment: CLEAN CATCH Performed By: #### L 400.0001 ####[facility] [address] [place], [place], [address] Urine color determinationOrd ered By: Agustín Noriega on 02-16-2025 Color (U) Straw Normal Yellow [facility] Comment on above: Order Comment: CLEAN CATCH Performed By: #### L 400.0001 ####[facility] [address] [place], [place], [id number] Urine glucose detectionOrder ed By: Agustín Noriega on 02-16-2025 Glucose Ql (U) Normal mg/dl Normal [facility] Urine leukocyte esterase det ection by dipstickOrdered By: Agustínlc Noriega on 02-16-2025 Leukocyte esterase Test strip Ql (U) 25 /ul High Negative [facility] Urine nitrite test by dipsti ckOrdered By: Agustínlc Noriega on 02-16-2025 Nitrite Ql (U) Negative Normal Negative [facility] Comment on above: Order Comment: CLEAN CATCH Performed By: #### L 400.0001 ####[facility] [address] [place], [address] Urine pHOrdered By: Agustínlc platt on 02-16-2025 pH (U) 6.0 [pH] 5.0 - 8.0 [facility] Urine sediment bacteria coun t by microscopy (number/high power field)Ordered By: Agustínlc Noriega on 02-16-2025 Bacteria LM.HPF (Urine sed) [#/Area] 0 /[HPF] None Seen [facility] Urine specific gravity measu rementOrdered By: Agustínlc Trejoo on 02-16-2025 Specific gravity (U) [Rel density] 1.005 1.002-1.030 [facility] Urine urobilinogen measureme ntOrdered By: Agustínlc Noriega on 02-16-2025 Urobilinogen Ql (U) Normal mg/dl Normal [facility] Urobilinogen Ql (U)Ordered B y: Agustín Trejoo on 02-16-2025 Urine Urobilinogen Normal mg/dl Normal [facility] White blood cell (WBC) count Ordered By: Agustínlc Noriega on 02-16-2025 WBC (Bld) [#/Vol] 7.1 10*3/uL 4.4-11.0 [facility] White blood cell countOrdere d By: Agustín Trejoo on 02-16-2025 Urine WBC 0-5 SEEN /hpf 0-5 [facility] White blood cell count 0-5 SEEN /hpf 0-5 [facility] CNPNon 02-12-2025 CNPN Telephone (PSWSTR) SONIA SZYMANSKI ([id number]) 1995 F Date Time Provider Department 02/12/25 KENISHA DAILY PSWSTR During your visit today, we recorded the following information about you: Dang Mayen RN 02/12/2025 8:09 AM Signed Pt calling in saying she needs a virtual appt with Kenisha Daily. Needs an appt as soon as possible so she can get her meds refilled. Makenzie Martinez LPN 02/17/2025 8:49 AM Signed Visit scheduled. Makenzie Martinez LPN Allergies As of Date: 02/12/2025 Noted Allergy Reaction PREDNISONE 12/23/2015 10 - Anaphylaxis Comments: Had at the same time as Z-trinidad - unsure which caused the anaphylaxis [id number] BUFFERS 02/27/2017 10 - Anaphylaxis EXCEDRIN (ACETAMINOPHEN-CAFFEINE ) 06/05/2013 7 - Swelling Comments: Mouth, can take tylenol LATEX 07/08/2014 2 - Rash 4 - Hives Comments: at site NEOSPORIN ([id number] *04/21/2014 4 - Hives VOLTAREN (DICLOFENAC SODIUM) 09/29/2014 14 - Other: See Comments Comments: Nausea ZITHROMAX (AZITHROMYCIN) 07/30/2014 10 - Anaphylaxis Comments: Hospitalized on 07/03/14 for this Date Reviewed: 12/18/2024 Reviewed by: Isaias Bradley MD - Fully Assessed Reason for [...] daily with breakfast. - Blood-Glucose Sensor (FREESTYLE LUKE 3 SENSOR) eliseo 1 Each every 2 [...] (BD TUBERCULIN SYRINGE) 1 mL 27 x 1/2" 1 Each three times daily. 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 Normal [facility] ED MED ADMINISTRATION DETAIL on 02-05-2025 ED MED ADMINISTRATION DETAIL Normal [facility] ED NURSES CLINICAL NOTEon ED NURSES CLINICAL NOTE Normal [facility] ED ORDER SHEET (CPOE ONLY)on 02-05-2025 ED ORDER SHEET (CPOE ONLY) Normal [facility] ED PHYSICIAN CLINICAL REPORT on 02-05-2025 ED PHYSICIAN CLINICAL REPORT Normal [facility] ED SUPER BILLon 02-05-2025 ED SUPER BILL Normal [facility] ED VISIT SUMMARYon ED VISIT SUMMARY Normal [facility] ED VITALS FLOW SHEETon 02-05 ED VITALS FLOW SHEET Normal [facility] ELBOW COMPLETE RTon 02-03-20 ELBOW COMPLETE RT Normal [facility] CNPNon 12-17-2024 [facility] SONIA SZYMANSKI ([id number]) 1995 F Date Time Provider Department 12/17/24 ISAIAS BRADLEY [facility] During your visit today, we recorded [...] instructions may repeat in 2 hours if necessary." Pt agreeable to take the 2nd dose [...] Brisa - unsure which caused the anaphylaxis [id number] [id number] 02/27/2017 10 - Anaphylaxis EXCEDRIN (ACETAMINOPHEN-CAFFEINE ) 06/05/2013 7 - Swelling Comments: Mouth, can take tylenol LATEX 07/08/2014 2 - Rash 4 - Hives Comments: at site NEOSPORIN ([id number] *04/21/2014 4 - Hives VOLTAREN (DICLOFENAC SODIUM) 09/29/2014 14 - Other: See Comments Comments: Nausea ZITHROMAX (AZITHROMYCIN) 07/30/2014 10 - Anaphylaxis Comments: Hospitalized on 07/03/14 for this Date Reviewed: 05/22/2024 Reviewed by: Ignacio Begum MA - Fully Assessed Reason for Visit: Patient Question [1477] Prescriptions as of 12/17/2024 - levothyroxine (SYNTHROID) 125 mcg tablet Take 1 tablet by mouth once daily. - empagliflozin (JARDIANCE) 10 mg tablet Take 1 tablet by mouth daily with breakfast. - Blood-Glucose Sensor (FREESTYLE LUKE 3 SENSOR) eliseo 1 Each every 2 [...] (BD TUBERCULIN SYRINGE) 1 mL 27 x 1/2" 1 Each three times daily. - Food [...] 03/20/2021 Recurrent major depression in partial remission*03/21/2021 Gerardo (more content not included)... Normal [facility] Abdomen/Pelvis W IV Cont ONL Yon 12-10-2024 Abdomen/Pelvis W IV Cont ONLY Normal [facility] Absolute neutrophil countOrd ered By: Diallo Lowery on 12-10-2024 Neutrophils (Bld) [#/Vol] 6.0 10*3/uL 2.0-7.7 [facility] Albumin to globulin ratioOrd ered By: Diallo Lowery on 12-10-2024 Albumin/Globulin [Mass ratio] 0.8 {ratio} Low 0.9-2.4 [facility] Basophil percentageOrdered B y: Diallo Lowery on 12-10-2024 Basophils/100 WBC (Bld) 0.7 % 0-1 [facility] Beta HCG ( test) Ql Ordered By: Diallo Lowery on 12-10-2024 Serum Test, Qualitative Negative [facility] Bilirubin, totalOrdered By: Diallo Lowery on 12-10-2024 Bilirubin [Mass/Vol] 0.80 mg/dL 0.20-1.00 [facility] Comment on above: For patients on eltr ombopag therapy, use of Dimension [place] TBIL is not recommended. Blood urea nitrogen (BUN)/cr eatinine ratioOrdered By: Diallo Lowery on 12-10-2024 Urea nitrogen/Creatinine [Mass ratio] 10.4 mg/mg 10-20 [facility] Brain/Head without Contrasto n 12-10-2024 Brain/Head without Contrast Normal [facility] CBC W/Diff, Automatedon 11-23 Absolute Lymph 2.44 X10 3/uL Normal 0.83-4.51 [facility] Comment on above: Performed By: #### L 501.2450, L700.6800, L500.4050, L100.0100 ####[facility] [address] [place], [address] Absolute Neut 6.0 X10 3/uL Normal 2.0-7.7 [facility] Comment on above: Performed By: #### L 501.2450, L700.6800, L500.4050, L100.0100 ####[facility] [address] [place], [address] Basophils/100 WBC (Bld) 0.7 % Normal 0-1 [facility] Comment on above: Performed By: #### L 501.2450, L700.6800, L500.4050, L100.0100 ####[facility] [address] [place], [address] Eosinophils/100 WBC (Bld) 0.0 % Normal 0-5 [facility] Comment on above: Performed By: #### L 501.2450, L700.6800, L500.4050, L100.0100 ####[facility] [address] [place], [address] Erythrocyte distribution width (RBC) [Ratio] 17.2 % High 11.6-14.6 [facility] Comment on above: Performed By: #### L 501.2450, L700.6800, L500.4050, L100.0100 ####[facility] [address] [place], [address] Hematocrit (Bld) [Volume fraction] 39.1 % Normal 37-47 [facility] Comment on above: Performed By: #### L 501.2450, L700.6800, L500.4050, L100.0100 ####[facility] [address] [place], [address] Hemoglobin (Bld) [Mass/Vol] 12.1 g/dL Normal 12.0-15.0 [facility] Comment on above: Performed By: #### L 501.2450, L700.6800, L500.4050, L100.0100 ####[facility] [address] [place], [address] IG% 0.300 Normal 0.0-0.9 [facility] Comment on above: Result Comment: IG% - Immature Granulocytes (promyelocytes, myelocytes andmetamyelocytes) > 1% indicates that a LEFT SHIFT is Present. Performed By: #### L 501.2450, L700.6800, L500.4050, L100.0100 ####[facility] [address] [place], [address] Lymphocytes/100 WBC (Bld) 26.8 % Normal 19-41 [facility] Comment on above: Performed By: #### L 501.2450, L700.6800, L500.4050, L100.0100 ####[facility] [address] [place], [address] MCH (RBC) [Entitic mass] 24.2 pg Low 27.0-32.0 [facility] Comment on above: Performed By: #### L 501.2450, L700.6800, L500.4050, L100.0100 ####[facility] [address] [place], [address] MCHC (RBC) [Mass/Vol] 30.9 g/dL Low 32-36 [facility] Comment on above: Performed By: #### L 501.2450, L700.6800, L500.4050, L100.0100 ####[facility] [address] [place], [address] MCV (RBC) [Entitic vol] 78.0 fL Low 81-99 [facility] Comment on above: Performed By: #### L 501.2450, L700.6800, L500.4050, L100.0100 ####[facility] [address] [place], [address] Monocytes/100 WBC (Bld) 6.7 % Normal 0-10 [facility] Comment on above: Performed By: #### L 501.2450, L700.6800, L500.4050, L100.0100 ####[facility] [address] [place], [address] Neutrophils/100 WBC (Bld) 65.5 % Normal 47-70 [facility] Comment on above: Performed By: #### L 501.2450, L700.6800, L500.4050, L100.0100 ####[facility] [address] [place], [address] Nucleated RBC (Bld) [#/Vol] 0 10*3/uL Normal 0-5 [facility] Comment on above: Performed By: #### L 501.2450, L700.6800, L500.4050, L100.0100 ####[facility] [address] [place], [address] Platelet mean volume (Bld) [Entitic vol] 9.9 fL Normal 6.2-12.0 [facility] Comment on above: Performed By: #### L 501.2450, L700.6800, L500.4050, L100.0100 ####[facility] [address] [place], [address] Platelets (Bld) [#/Vol] 355 10*3/uL Normal 150-450 [facility] Comment on above: Performed By: #### L 501.2450, L700.6800, L500.4050, L100.0100 ####[facility] [address] [place], [address] RBC (Bld) [#/Vol] 5.01 10*6/uL Normal 4.2-5.4 [facility] Comment on above: Performed By: #### L 501.2450, L700.6800, L500.4050, L100.0100 ####[facility] [address] [place], [address] RDW SD 47.8 fl High 35.1-43.9 [facility] Comment on above: Performed By: #### L 501.2450, L700.6800, L500.4050, L100.0100 ####[facility] [address] [place], [address] WBC (Bld) [#/Vol] 9.1 10*3/uL Normal 4.4-11.0 [facility] Comment on above: Performed By: #### L 501.2450, L700.6800, L500.4050, L100.0100 ####[facility] [address] [place], [address] Carbon dioxide measurementOr dered By: Diallo Lowery on 12-10-2024 CO2 [Moles/Vol] 26.0 mmol/L 21.0-32.0 [facility] Chloride measurementOrdered By: Diallo Lowery on 12-10-2024 Chloride [Moles/Vol] 106 mmol/L 98-107 [facility] Comprehensive Metabolic Prof ilon 12-10-2024 Albumin [Mass/Vol] 3.5 g/dL Normal 3.2-5.0 [facility] Comment on above: Performed By: #### L 501.2450, L700.6800, L500.4050, L100.0100 ####[facility] [address] [place], [address] Albumin/Globulin [Mass ratio] 0.8 {ratio} Low 0.9-2.4 [facility] Comment on above: Performed By: #### L 501.2450, L700.6800, L500.4050, L100.0100 ####[facility] [address] [place], [address] ALK P 112 U/L Normal 45-117 [facility] Comment on above: Performed By: #### L 501.2450, L700.6800, L500.4050, L100.0100 ####[facility] [address] [place], [address] ALT [Catalytic activity/Vol] 47 U/L Normal 13-56 [facility] Comment on above: Performed By: #### L 501.2450, L700.6800, L500.4050, L100.0100 ####[facility] [address] [place], [address] AST [Catalytic activity/Vol] 27 U/L Normal 15-37 [facility] Comment on above: Result Comment: Slig ht Hemolysis, Result may be falsely increased. Performed By: #### L 501.2450, L700.6800, L500.4050, L100.0100 ####[facility] [address] [place], [address] Bilirubin [Mass/Vol] 0.80 mg/dL Normal 0.20-1.00 [facility] Comment on above: Result Comment: For patients on eltrombopag therapy, use of Dimension [place] TBIL is not recommended. Performed By: #### L 501.2450, L700.6800, L500.4050, L100.0100 ####[facility] [address] [place], [address] BUN/CRE 10.4 RATIO Normal 10-20 [facility] Comment on above: Performed By: #### L 501.2450, L700.6800, L500.4050, L100.0100 ####[facility] [address] [place], [address] CA,Total 9.5 mg/dL Normal 8.5-10.1 [facility] Comment on above: Performed By: #### L 501.2450, L700.6800, L500.4050, L100.0100 ####[facility] [address] [place], [address] Chloride [Moles/Vol] 106 mmol/L Normal 98-107 [facility] Comment on above: Performed By: #### L 501.2450, L700.6800, L500.4050, L100.0100 ####[facility] [address] [place], [address] CO2 [Moles/Vol] 26.0 mmol/L Normal 21.0-32.0 [facility] Comment on above: Performed By: #### L 501.2450, L700.6800, L500.4050, L100.0100 ####[facility] [address] [place], [address] Creatinine [Mass/Vol] 0.87 mg/dL Normal 0.55-1.02 [facility] Comment on above: Result Comment: The validity of the calculated GFR GFRAA in patients over70 years has not been determined. Clinical correlation isessential. Performed By: #### L 501.2450, L700.6800, L500.4050, L100.0100 ####[facility] [address] [place], [address] ECRCL 102.59 ml/min Normal [facility] Comment on above: Performed By: #### L 501.2450, L700.6800, L500.4050, L100.0100 ####[facility] [address] [place], [address] EST GFR - AA 97 mL/min Normal >60 [facility] Comment on above: Result Comment: Afri can Australian GFR Calc Performed By: #### L 501.2450, L700.6800, L500.4050, L100.0100 ####[facility] [address] [place], [address] GAP 6 Normal 5-15 [facility] Comment on above: Performed By: #### L 501.2450, L700.6800, L500.4050, L100.0100 ####[facility] [address] [place], [address] GFR/1.73 sq M.predicted among non-blacks MDRD (S/P/Bld) [Vol rate/Area] 80 mL/min/{1.73_m2} Normal >60 [facility] Comment on above: Result Comment: Non- GFR Calc Performed By: #### L 501.2450, L700.6800, L500.4050, L100.0100 ####[facility] [address] [place], [address] Globulin (S) [Mass/Vol] 4.4 g/dL High 2.2-4.2 [facility] Comment on above: Performed By: #### L 501.2450, L700.6800, L500.4050, L100.0100 ####[facility] [address] [place], [address] Glucose [Mass/Vol] 88 mg/dL Normal 74-106 [facility] Comment on above: Performed By: #### L 501.2450, L700.6800, L500.4050, L100.0100 ####[facility] [address] [place], [address] Potassium [Moles/Vol] 3.9 mmol/L Normal 3.5-5.1 [facility] Comment on above: Result Comment: Slig ht Hemolysis, Result may be falsely increased. Performed By: #### L 501.2450, L700.6800, L500.4050, L100.0100 ####[facility] [address] [place], [address] Sodium [Moles/Vol] 138 mmol/L Normal 136-145 [facility] Comment on above: Performed By: #### L 501.2450, L700.6800, L500.4050, L100.0100 ####[facility] [address] [place], [address] T PROT 7.9 g/dL Normal 6.4-8.2 [facility] Comment on above: Performed By: #### L 501.2450, L700.6800, L500.4050, L100.0100 ####[facility] [address] [place], [address] Urea nitrogen [Mass/Vol] 9 mg/dL Normal 7-18 [facility] Comment on above: Performed By: #### L 501.2450, L700.6800, L500.4050, L100.0100 ####[facility] [address] [place], [address] Emergency Department Summary on 12-10-2024 Emergency Department Summary Normal [facility] Eosinophil percentageOrdered By: Diallo Lowery on 12-10-2024 Eosinophils/100 WBC (Bld) 0.0 % 0-5 [facility] Erythrocyte distribution wid th (RBC) [Ratio]Ordered By: Diallo Lowery on 12-10-2024 Erythrocyte distribution width (RBC) [Entitic vol] 47.8 fL High 35.1-43.9 [facility] Erythrocyte distribution wid th ratioOrdered By: Diallo Lowery on 12-10-2024 Erythrocyte distribution width (RBC) [Ratio] 17.2 % High 11.6-14.6 [facility] Estimated glomerular filtrat ion rate (GFR) AmericanOrdered By: Diallo Lowery on 12-10-2024 Estimated GFR (MDRD) Amer 97 mL/min >60 [facility] Comment on above: GFR Calc Estimation of creatinine nj aranceOrdered By: Diallo Lowery on 12-10-2024 Estimated Creatinine Clearance Calc 102.59 ml/min [facility] Glomerular filtration rate ( GFR) estimationOrdered By: Diallo Lowery on 12-10-2024 Estimated GFR (MDRD) Non-Af Amer 80 mL/min >60 [facility] Comment on above: Non- GFR Calc Glucose measurementOrdered B y: Diallo Lowery on 12-10-2024 Glucose [Mass/Vol] 88 mg/dL 74-106 [facility] Hematocrit Auto (Bld) [Volum e fraction]Ordered By: Diallo Lowery on 12-10-2024 Hematocrit (Bld) [Volume fraction] 39.1 % 37-47 [facility] Hemoglobin measurementOrdere d By: Diallo Lowery on 12-10-2024 Hemoglobin (Bld) [Mass/Vol] 12.1 g/dL 12.0-15.0 [facility] Immature granulocytes/100 WB C Auto (Bld)Ordered By: Diallo Lowery on 12-10-2024 Immature granulocytes/100 WBC (Bld) 0.300 % 0.0-0.9 [facility] Comment on above: IG% - Immature Granu locytes (promyelocytes, myelocytes and metamyelocytes) > 1% indicates that a LEFT SHIFT is Present. Influenza virus A and B and SARS-CoV-2 (COVID-19) and Respiratory syncytial virus RNAOrdered By: Diallo Lowery on 12-10-2024 SARS-CoV-2 (COVID-19) RNA PINKY+probe Ql (Unsp spec) [facility] Laboratory - Chemistry and C hemistry - challengeOrdered By: Diallo Lowery on 12-10-2024 AST [Catalytic activity/Vol] 27 U/L 15-37 [facility] Comment on above: Slight Hemolysis, Re sult may be falsely increased. Lipaseon 12-10-2024 Lipase [Catalytic activity/Vol] 24 U/L Low 73-393 [facility] Comment on above: Performed By: #### L 501.2450, L700.6800, L500.4050, L100.0100 ####[facility] [address] [place], [place], [address] Lipase measurementOrdered By : Diallo Lowery on 12-10-2024 Lipase [Catalytic activity/Vol] 24 U/L Low 73-393 [facility] Lymphocytes Auto (Unsp spec) [#/Vol]Ordered By: Diallo Lowery on 12-10-2024 Lymphocytes (Bld) [#/Vol] 2.44 10*3/uL 0.83-4.51 [facility] Lymphocytes/100 WBC Auto (Un sp spec)Ordered By: Diallo Lowery on 12-10-2024 Lymphocytes/100 WBC (Bld) 26.8 % 19-41 [facility] M100.678on 12-10-2024 M100.678 SARS-CoV-2 (COVID 19 ) Negative INFLUENZA A Negative INFLUENZA B Negative RSV PCR Negative Normal [facility] Comment on above: Performed By: #### M 100.678 ####[facility] [address] [place], [place], [id number] MCV (mean corpuscular volume ) determinationOrdered By: Diallo Lowery on 12-10-2024 MCV (RBC) [Entitic vol] 78.0 fL Low 81-99 [facility] Mean corpuscular hemoglobin (MCH) determinationOrdered By: Diallo Lowery on 12-10-2024 MCH (RBC) [Entitic mass] 24.2 pg Low 27.0-32.0 [facility] Mean corpuscular hemoglobin concentration (MCHC) determinationOrdered By: Diallo Lowery on 12-10-2024 MCHC (RBC) [Mass/Vol] 30.9 g/dL Low 32-36 [facility] Mean platelet volume determi nationOrdered By: Diallo Lowery on 12-10-2024 Platelet mean volume (Bld) [Entitic vol] 9.9 fL 6.2-12.0 [facility] Monocyte percentageOrdered B y: Diallo Lowery on 12-10-2024 Monocytes/100 WBC (Bld) 6.7 % 0-10 [facility] Neutrophil percentageOrdered By: Diallo Lowery on 12-10-2024 Neutrophils/100 WBC (Bld) 65.5 % 47-70 [facility] Nucleated red blood cell per centageOrdered By: Diallo Lowery on 12-10-2024 Nucleated RBC/100 WBC (Bld) [Ratio] 0 % 0-5 [facility] Platelet countOrdered By: Valentino Lowery on 12-10-2024 Platelets (Bld) [#/Vol] 355 10*3/uL 150-450 [facility] Potassium measurementOrdered By: Diallo Lowery on 12-10-2024 Potassium [Moles/Vol] 3.9 mmol/L 3.5-5.1 [facility] Comment on above: Slight Hemolysis, Re sult may be falsely increased. ,Serum,hCG Quali.on 12-10-2024 HCG, SERUM QUAL Negative Normal [facility] Comment on above: Performed By: #### L 501.2450, L700.6800, L500.4050, L100.0100 ####[facility] [address] [place], [address] RBC Auto (Bld) [#/Vol]Ordere d By: Diallo Lowery on 12-10-2024 RBC (Bld) [#/Vol] 5.01 10*6/uL 4.2-5.4 [facility] Serum anion gap measurementO rdered By: Diallo Lowery on 12-10-2024 Anion gap [Moles/Vol] 6 mmol/L 5-15 [facility] Serum globulin measurementOr dered By: Diallo Lowery on 12-10-2024 Globulin (S) [Mass/Vol] 4.4 g/dL High 2.2-4.2 [facility] Serum or plasma alanine hammer otransferase (ALT) measurementOrdered By: Diallo Lowery on 12-10-2024 ALT [Catalytic activity/Vol] 47 U/L 13-56 [facility] Serum or plasma albumin evert urement (mass/volume)Ordered By: Diallo Lowery on 12-10-2024 Albumin [Mass/Vol] 3.5 g/dL 3.2-5.0 [facility] Serum or plasma alkaline kelsy sphatase measurementOrdered By: Diallo Lowery on 12-10-2024 ALP [Catalytic activity/Vol] 112 U/L 45-117 [facility] Serum or plasma calcium evert urement (mass/volume)Ordered By: Diallo Lowery on 12-10-2024 Calcium [Mass/Vol] 9.5 mg/dL 8.5-10.1 [facility] Serum or plasma creatinine m easurement (mass/volume)Ordered By: Diallo Lowery on 12-10-2024 Creatinine [Mass/Vol] 0.87 mg/dL 0.55-1.02 [facility] Comment on above: The validity of the calculated GFR & GFRAA in patients over 70 years has not been determined. Clinical correlation is essential. Serum or plasma urea nitroge n measurement (mass/volume)Ordered By: Diallo Lowery on 12-10-2024 Urea nitrogen [Mass/Vol] 9 mg/dL 7-18 [facility] Sodium levelOrdered By: Chriss Lowery on 12-10-2024 Sodium [Moles/Vol] 138 mmol/L 136-145 [facility] Total proteinOrdered By: Steph Lowery on 12-10-2024 Protein [Mass/Vol] 7.9 g/dL 6.4-8.2 [facility] White blood cell (WBC) count Ordered By: Diallo Lowery on 12-10-2024 WBC (Bld) [#/Vol] 9.1 10*3/uL 4.4-11.0 [facility] CORONAVIRUS (SARS) ANTIGEN T ESTon 11-10-2024 EXTERNAL QC DONE? YES Normal [facility] Comment on above: Performed By: #### [id number] ####[facility],[address] [place] [address] INTERNAL CONTROL PASS Normal [facility] Comment on above: Performed By: #### 2 [id number] ####[facility],[address] [place] [address] SARS ANTIGEN Negative Normal NORMAL: NEGATIVE [facility] Comment on above: Performed By: #### 2 [id number] ####[facility],[address] [place] [address] SEND TO ? NO Normal [facility] Comment on above: Result Comment: SARS -CoV-2THIS TEST IS BEING USED UNDER THE FDA EUA PROCEDURE. THIS ASSAY HAS BEENVALIDATED AT [facility] FOR USE WITH NASAL AND NASOPHARYNGEAL SWABSPECIMENS.INTERPRETIVE DATATEST RESULTS SHOULD ALWAYS BE CONSIDERED IN THE CONTEXT OF CLINICALOBSERVATIONS AND EPIDEMIOLOGICAL DATA IN MAKING FINAL DIAGNOSIS AND PATIENTMANAGEMENT DECISIONS. PATIENT MANAGEMENT SHOULD FOLLOW CURRENT CDC GUIDELINES.THE ANATOLIY SARS ANTIGEN LESTER DOES NOT DIFFERENTIATE BETWEEN SARS-CoV & SARS-CoV-2.A POSITIVE TEST RESULT INDICATES THE PRESENCE OF SARS-CoV-2 NUCLEOCAPSID PROTEINANTIGEN, AND THE PATIENT IS INFECTED WITH THE VIRUS AND PRESUMED TO BECONTAGIOUS.A NEGATIVE TEST RESULT FOR THIS TEST MEANS THAT SARS-CoV-2 NUCLEOCAPSID PROTEINANTIGEN WAS NOT PRESENT IN THE SPECIMEN ABOVE THE LIMIT OF DETECTION. HOWEVER, ANEGATIVE RESULT DOES NOT RULE OUT COVID-19 AND SHOULD NOT BE USED THE [facility] FOR TREATMENT OR PATIENT MANAGEMENT DECISIONS. A NEGATIVE RESULT DOES NOTEXCLUDE THE POSSIBILITY OF COVID-19. NEGATIVE RESULTS, FROM PATIENTS WITHSYMPTOM ONSET BEYOND FIVE DAYS, SHOULD BE TREATED PRESUMPTIVE ANDCONFIRMATION WITH A MOLECULAR ASSAY, IF NECESSARY, FOR PATIENT MANAGEMENT, MAYBE PERFORMED.WHEN DIAGNOSTIC TESTING IS NEGATIVE, THE POSSIBLILTY OF A FALSE NEGATIVE RESULTSHOULD BE CONSIDERED IN THE CONTEXT OF A PATIENT'S RECENT EXPOSURES AND THEPRESENCE OF CLINICAL SIGNS AND SYMPTOMS CONSISTENT WITH COVID-19. THEPOSSIBILITY OF A FALSE NEGATIVE RESULT SHOULD ESPECIALLY BE CONSIDERED IF THEPATIENT'S RECENT EXPOSURES OR CLINICAL PRESENTATION INDICATE THAT COVID-19 ISLIKELY, AND DIAGNOSTIC TESTS FOR OTHER CAUSES OF ILLNESS (e.g., OTHERRESPIRATORY ILLNESS) ARE NEGATIVE. IF COVID-19 IS STILL SUSPECTED BASED ONEXPOSURE HISTORY TOGETHER WITH OTHER CLINICAL FINDINGS, RE-TESTING SHOULD BECONSIDERED BY HEALTHCARE PROVIDERS IN CONSULTATION WITH [facility]. Performed By: #### 2 73122 ####[facility],[address] [place] [address] ED MED ADMINISTRATION DETAIL on 11-10-2024 ED MED ADMINISTRATION DETAIL Normal [facility] ED NURSES CLINICAL NOTEon ED NURSES CLINICAL NOTE Normal [facility] ED ORDER SHEET (CPOE ONLY)on 11-10-2024 ED ORDER SHEET (CPOE ONLY) Normal [facility] ED PHYSICIAN CLINICAL REPORT on 11-10-2024 ED PHYSICIAN CLINICAL REPORT Normal [facility] ED PHYSICIAN DISCHARGE REPOR Ton 11-10-2024 ED PHYSICIAN DISCHARGE REPORT Normal [facility] ED SUPER BILLon 11-10-2024 ED SUPER BILL Normal [facility] ED VISIT SUMMARYon ED VISIT SUMMARY Normal [facility] ED VITALS FLOW SHEETon 11-10 ED VITALS FLOW SHEET Normal [facility] INFLUENZA VIRUS RAPID A/Bon 11-10-2024 INFLUENZA VIRUS RAPID A/B Normal [facility] Comment on above: Performed By: #### 2 12102 ####[facility],[address] [place] [address] ED MED ADMINISTRATION DETAIL on 11-02-2024 ED MED ADMINISTRATION DETAIL Normal [facility] ED NURSES CLINICAL NOTEon ED NURSES CLINICAL NOTE Normal [facility] ED ORDER SHEET (CPOE ONLY)on 11-02-2024 ED ORDER SHEET (CPOE ONLY) Normal [facility] ED PHYSICIAN CLINICAL REPORT on 11-02-2024 ED PHYSICIAN CLINICAL REPORT Normal [facility] ED PHYSICIAN DISCHARGE REPOR Ton 11-02-2024 ED PHYSICIAN DISCHARGE REPORT Normal [facility] ED SUPER BILLon 11-02-2024 ED SUPER BILL Normal [facility] ED VISIT SUMMARYon ED VISIT SUMMARY Normal [facility] ED VITALS FLOW SHEETon 11-02 ED VITALS FLOW SHEET Normal [facility] CBC + DIFFon 10-20-2024 Baso # 0.03 x10EE3/UL Normal 0.00 - 0.10 [facility] Comment on above: Performed By: #### 2 24477 ####[facility],[address] [place], [place] [id number] Basophils/100 WBC (Bld) 0.4 % Normal 0.0 - 2.0 [facility] Comment on above: Performed By: #### 2 27829 ####[facility],[address] [place] [address] CBC + DIFF Normal [facility] Comment on above: Result Comment: CBC- COMPLETE BLOOD COUNT Performed By: #### 2 72883 ####[facility],[address] [place], [place] [id number] EO # 0.02 x10EE3/UL Normal 0.00 - 0.50 [facility] Comment on above: Performed By: #### 2 15249 ####[facility],[address] [place] [address] 20819 Eosinophils/100 WBC (Bld) 0.3 % Normal 0.0 - 7.0 [facility] Comment on above: Performed By: #### 2 78498 ####[facility],[address],[place] [address] Erythrocyte distribution width (RBC) [Ratio] 16.8 % High 12.0 - 15.6 [facility] Comment on above: Performed By: #### 2 86777 ####[facility],[address] [place] [address] Hematocrit (Bld) [Volume fraction] 40.0 % Normal 34.0 - 46.0 [facility] Comment on above: Performed By: #### 2 26289 ####[facility],[address] [place] [address] Hemoglobin (Bld) [Mass/Vol] 13.7 g/dL Normal 12.0 - 16.0 [facility] Comment on above: Performed By: #### 2 48173 ####[facility],[address] [place] [address] Lymph # 2.29 x10EE3/UL Normal 0.80 - 2.80 [facility] Comment on above: Performed By: #### 2 99609 ####[facility],[address] [place] [address] Lymphocytes/100 WBC (Bld) 32.0 % Normal 20.0 - 45.0 [facility] Comment on above: Performed By: #### 2 57916 ####[facility],[address] [place] [address] MANUAL DIFF N/A Normal [facility] Comment on above: Performed By: #### 2 26083 ####[facility],[address] [place], [place] [id number] MCH (RBC) [Entitic mass] 26 pg Low 27 - 33 [facility] Comment on above: Performed By: #### 2 65197 ####[place] [address] MCHC 34 X10 3 Normal 32 - 36 [facility] Comment on above: Performed By: #### 2 54110 ####[place] [address] MCV (RBC) [Entitic vol] 75 fL Low 80 - 99 [facility] Comment on above: Performed By: #### 2 67964 ####[address] [address] [place] # 0.59 x10EE3/UL Normal 0.20 - 1.00 [facility] Comment on above: Performed By: #### 2 34943 ####[facility],[address] [place] [address] MONOS % 8.3 % Normal 0.0 - 10.0 [facility] Comment on above: Performed By: #### 2 15029 ####[place] [address] Morphology Arnie (Bld) [Interp] N/A Normal [facility] Comment on above: Performed By: #### 2 47899 ####[place] [address] Neut # 4.22 x10EE3/UL Normal 1.50 - 7.10 [facility] Comment on above: Performed By: #### 2 23911 ####[place] [address] Neutrophils/100 WBC (Bld) 59.0 % Normal 46.0 - 76.0 [facility] Comment on above: Performed By: #### 2 35454 ####[facility],[address] [place] [address] PLATELET 424 x10EE3/UL Normal 150 - 450 [facility] Comment on above: Performed By: #### 2 83389 ####[place] [id number] Platelet mean volume (Bld) [Entitic vol] 7.9 fL Normal 6.6 - 10.5 [facility] Comment on above: Result Comment: AUTO MATED DIFFERENTIAL Performed By: #### 2 94782 ####[facility],[address] [place] [address] 67414 RBC 5.35 x 10EE6/UL High 4.10 - 5.30 [facility] Comment on above: Performed By: #### 2 90149 ####[facility],[address] [place] [address] 25550 WBC 7.2 x 10EE3/UL Normal 4.5 - 10.8 [facility] Comment on above: Performed By: #### 2 25137 ####[facility],[address] [place] [address] 94270 CHEST 1 VIEWon 10-20-2024 CHEST 1 VIEW Normal [facility] CMP with eGFRon 10-20-2024 AGE 29 years Normal [facility] Comment on above: Performed By: #### 2 01406 ####[facility],[address] [place] [address] 55702 Albumin [Mass/Vol] 3.9 g/dL Normal 3.4 - 5.0 [facility] Comment on above: Performed By: #### 2 28151 ####[facility],[address] [place] [address] 05073 Albumin/Globulin [Mass ratio] 0.9 {ratio} Normal 0.9 - 1.6 [facility] Comment on above: Performed By: #### 2 44998 ####[facility],[address] [place] [address] 44408 ALK PHOS 131 U/L High 46 - 116 [facility] Comment on above: Performed By: #### 2 13309 ####[facility],[address] [place] [address] 65858 ALT [Catalytic activity/Vol] 54 U/L Normal 16 - 63 [facility] Comment on above: Performed By: #### 2 66746 ####[facility],[address] [place] [address] 23297 Anion gap [Moles/Vol] 15 mmol/L Normal 10 - 20 [facility] Comment on above: Performed By: #### 2 10032 ####[facility],[address] [place] [address] 60967 AST [Catalytic activity/Vol] 35 U/L Normal 13 - 39 [facility] Comment on above: Performed By: #### 2 94722 ####[facility],[address] [place] [address] 79224 B/C RATIO 11 ratio Normal 0 - 30 [facility] Comment on above: Performed By: #### 2 23768 ####[facility],[address] [place] [address] 72160 Bilirubin [Mass/Vol] 1.4 mg/dL High 0.2 - 1.0 [facility] Comment on above: Performed By: #### 2 79170 ####[facility],[address] [place] [address] 99741 Calcium [Mass/Vol] 9.5 mg/dL Normal 8.5 - 10.1 [facility] Comment on above: Performed By: #### 2 64665 ####[facility],[address] [place] [address] 93460 Chloride [Moles/Vol] 103 mmol/L Normal 98 - 107 [facility] Comment on above: Performed By: #### 2 54107 ####[facility],[address] [place] [address] 68156 CMP with eGFR Normal [facility] Comment on above: Result Comment: COMP REHENSIVE METABOLIC PANEL Performed By: #### 2 35622 ####[facility],[address] [place] [address] 13864 CO2 [Moles/Vol] 25.3 mmol/L Normal 21.0 - 32.0 [facility] Comment on above: Performed By: #### 2 56421 ####[facility],[address] [place] [address] 85542 Creatinine [Mass/Vol] 1.08 mg/dL High 0.55 - 1.02 [facility] Comment on above: Performed By: #### 2 70236 ####[facility],[address] [place] [address] 07175 eGFR 59 ML/MINUTE Low 60 - 999 [facility] Comment on above: Performed By: #### 2 10042 ####[facility],[address] [place] [address] 02850 GFR/1.73 sq M.predicted among non-blacks MDRD (S/P/Bld) [Vol rate/Area] mL/min/{1.73_m2} Normal 60 - 999 [facility] Comment on above: Result Comment: ACCO RDING TO THE NATIONAL KIDNEY DISEASE EDUCATION PROGRAM(NKDE), A NORMAL eGFRIS A VALUE GREATER THAN OR EQUAL TO 60 ML/MIN/1.73 SQ METERS.CHRONIC KIDNEY DISEASE: <60mL/MIN/1.73 SQ METERSKIDNEY FAILURE: <15mL/MIN/1.73 SQ METERSTHIS TEST SHOULD ONLY BE USED FOR PATIENTS 18 YEARS OF AGE AND OLDER. Performed By: #### 2 37222 ####[facility],[address] [place] [address] 75775 Globulin (S) [Mass/Vol] 4.4 g/dL High 1.5 - 3.8 [facility] Comment on above: Performed By: #### 2 97162 ####[facility],[address] [place] [address] 25765 Glucose [Mass/Vol] 90 mg/dL Normal 74 - 106 [facility] Comment on above: Performed By: #### 2 99190 ####[facility],[address] [place] [address] 86420 Potassium [Moles/Vol] 4.0 mmol/L Normal 3.5 - 5.1 [facility] Comment on above: Performed By: #### 2 47600 ####[facility],[address] [place] [address] 31384 Protein [Mass/Vol] 8.3 g/dL High 6.4 - 8.2 [facility] Comment on above: Performed By: #### 2 60107 ####[facility],[address] [place] [address] Sodium [Moles/Vol] 139 mmol/L Normal 136 - 145 [facility] Comment on above: Performed By: #### 2 54232 ####[facility],[address] [place] [address] Urea nitrogen [Mass/Vol] 12 mg/dL Normal 7 - 18 [facility] Comment on above: Performed By: #### 2 26178 ####[facility],[address] [place] [address] CORONAVIRUS (SARS) ANTIGEN T ESTon 10-20-2024 EXTERNAL QC DONE? YES Normal [facility] Comment on above: Performed By: #### 2 26884 ####[place] [address] INTERNAL CONTROL PASS Normal [facility] Comment on above: Performed By: #### 2 64054 ####[facility],[address] [place] [address] SARS ANTIGEN Negative Normal NORMAL: NEGATIVE [facility] Comment on above: Performed By: #### 2 85036 ####[facility],[address] [place] [address] SEND TO ? NO Normal [facility] Comment on above: Result Comment: SARS -CoV-2THIS TEST IS BEING USED UNDER THE FDA EUA PROCEDURE. THIS ASSAY HAS BEENVALIDATED AT [facility] FOR USE WITH NASAL AND NASOPHARYNGEAL SWABSPECIMENS.INTERPRETIVE DATATEST RESULTS SHOULD ALWAYS BE CONSIDERED IN THE CONTEXT OF CLINICALOBSERVATIONS AND EPIDEMIOLOGICAL DATA IN MAKING FINAL DIAGNOSIS AND PATIENTMANAGEMENT DECISIONS. PATIENT MANAGEMENT SHOULD FOLLOW CURRENT CDC GUIDELINES.THE ANATOLIY SARS ANTIGEN LESTER DOES NOT DIFFERENTIATE BETWEEN SARS-CoV & SARS-CoV-2.A POSITIVE TEST RESULT INDICATES THE PRESENCE OF SARS-CoV-2 NUCLEOCAPSID PROTEINANTIGEN, AND THE PATIENT IS INFECTED WITH THE VIRUS AND PRESUMED TO BECONTAGIOUS.A NEGATIVE TEST RESULT FOR THIS TEST MEANS THAT SARS-CoV-2 NUCLEOCAPSID PROTEINANTIGEN WAS NOT PRESENT IN THE SPECIMEN ABOVE THE LIMIT OF DETECTION. HOWEVER, ANEGATIVE RESULT DOES NOT RULE OUT COVID-19 AND SHOULD NOT BE USED THE SOLEBASIS FOR TREATMENT OR PATIENT MANAGEMENT DECISIONS. A NEGATIVE RESULT DOES NOTEXCLUDE THE POSSIBILITY OF COVID-19. NEGATIVE RESULTS, FROM PATIENTS WITHSYMPTOM ONSET BEYOND FIVE DAYS, SHOULD BE TREATED PRESUMPTIVE ANDCONFIRMATION WITH A MOLECULAR ASSAY, IF NECESSARY, FOR PATIENT MANAGEMENT, MAYBE PERFORMED.WHEN DIAGNOSTIC TESTING IS NEGATIVE, THE POSSIBLILTY OF A FALSE NEGATIVE RESULTSHOULD BE CONSIDERED IN THE CONTEXT OF A PATIENT'S RECENT EXPOSURES AND THEPRESENCE OF CLINICAL SIGNS AND SYMPTOMS CONSISTENT WITH COVID-19. THEPOSSIBILITY OF A FALSE NEGATIVE RESULT SHOULD ESPECIALLY BE CONSIDERED IF THEPATIENT'S RECENT EXPOSURES OR CLINICAL PRESENTATION INDICATE THAT COVID-19 ISLIKELY, AND DIAGNOSTIC TESTS FOR OTHER CAUSES OF ILLNESS (e.g., OTHERRESPIRATORY ILLNESS) ARE NEGATIVE. IF COVID-19 IS STILL SUSPECTED BASED ONEXPOSURE HISTORY TOGETHER WITH OTHER CLINICAL FINDINGS, RE-TESTING SHOULD BECONSIDERED BY HEALTHCARE PROVIDERS IN CONSULTATION WITH [facility]. Performed By: #### 2 59289 ####[place] [address] INFLUENZA VIRUS RAPID A/Bon 10-20-2024 INFLUENZA VIRUS RAPID A/B Normal [facility] Comment on above: Performed By: #### 2 74412 ####[place] [address] TROPONINon 10-20-2024 HS TROPONIN <4.0 Normal 0.0 - 51.4 [facility] Comment on above: Performed By: #### 2 87231 ####[place] [address] URINALYSISon 10-20-2024 Amorphous NONE Normal [facility] Comment on above: Performed By: #### 2 51000 ####[place] [address] Bacteria NONE Normal [facility] Comment on above: Performed By: #### 2 19336 ####[facility],[address] [place] [address] 23165 Bilirubin Ql (U) 1 Abnormal NORMAL: NEGATIVE [facility] Comment on above: Performed By: #### 2 65569 ####[facility],[address] [place] [address] 47305 Casts NONE Normal [facility] Comment on above: Performed By: #### 2 66645 ####[facility],[address] [place] [address] 91706 Clarity (U) clear Normal NORMAL: CLEAR [facility] Comment on above: Performed By: #### 2 49886 ####[facility],[address] [place] [address] 88763 Color (U) keven Normal NORMAL: YELLOW [facility] Comment on above: Performed By: #### 2 25959 ####[facility],[address] [place] [address] 26409 Crystals LM Nom (Urine sed) NONE Normal [facility] Comment on above: Performed By: #### 2 66511 ####[facility],[address] [place] [address] 84066 Epi Cells OCC Normal [facility] Comment on above: Performed By: #### 2 51570 ####[facility],[address] [place] [address] 05572 Glucose Ql (U) 250 Abnormal NORMAL: NORMAL [facility] Comment on above: Performed By: #### 2 15532 ####[facility],[address] [place] [address] 58329 Hemoglobin Ql (U) 25 Abnormal NORMAL: NEGATIVE [facility] Comment on above: Performed By: #### 2 25484 ####[facility],[address] [place] [address] 68119 Ketone 50 Abnormal NORMAL: NEGATIVE [facility] Comment on above: Performed By: #### 2 09000 ####[facility],[address] [place] [address] Leukocytes Negative Normal NORMAL: NEGATIVE [facility] Comment on above: Performed By: #### 2 86210 ####[facility],[address] [place], [place] [id number] Mucous NONE Normal [facility] Comment on above: Performed By: #### 2 81799 ####[facility],[address] [place] [address] Nitrite Ql (U) Negative Normal NORMAL: NEGATIVE [facility] Comment on above: Performed By: #### 2 72416 ####[facility],[address] [place] [address] pH (U) 5 [pH] Normal NORMAL: 5.0-8.0 [facility] Comment on above: Performed By: #### 2 56462 ####[facility],[address] [place] [address] Protein Ql (U) 30 Abnormal NORMAL: NEGATIVE [facility] Comment on above: Performed By: #### 2 17594 ####[facility],[address] [place] [address] Rbc 0-5 Normal 0-3/hpf [facility] Comment on above: Performed By: #### 2 81143 ####[facility],[address] [place] [address] Sp [place] 1.025 Normal NORMAL: 1.010-1.030 [facility] Comment on above: Performed By: #### 2 86894 ####[facility],[address] [place] [address] Specimen Type R Normal [facility] Comment on above: Performed By: #### 2 46404 ####[facility],[address] [place] [address] Urinalysis dipstick W Reflex Microscopic panel (U) SEE BELOW Normal [facility] Comment on above: Result Comment: MICR OSCOPIC Performed By: #### 2 68553 ####[facility],[address] [place] [address] Urobilinog NORM Normal NORMAL: NORMAL [facility] Comment on above: Performed By: #### 2 85228 ####[facility],[address] [place] [address] 60586 Wbc NONE Normal 0-5/hpf [facility] Comment on above: Performed By: #### 2 88715 ####[facility],[address] [place] [address] 40917 Yeast NONE Normal [facility] Comment on above: Performed By: #### 2 76356 ####[facility],[address] [place] [address] ED MED ADMINISTRATION DETAIL on 10-08-2024 ED MED ADMINISTRATION DETAIL Normal [facility] ED NURSES CLINICAL NOTEon ED NURSES CLINICAL NOTE Normal [facility] ED ORDER SHEET (CPOE ONLY)on 10-08-2024 ED ORDER SHEET (CPOE ONLY) Normal [facility] ED PHYSICIAN CLINICAL REPORT on 10-08-2024 ED PHYSICIAN CLINICAL REPORT Normal [facility] ED PHYSICIAN DISCHARGE REPOR Ton 10-08-2024 ED PHYSICIAN DISCHARGE REPORT Normal [facility] ED SUPER BILLon 10-08-2024 ED SUPER BILL Normal [facility] ED VISIT SUMMARYon ED VISIT SUMMARY Normal [facility] ED VITALS FLOW SHEETon 10-08 ED VITALS FLOW SHEET Normal [facility] URINALYSISon 10-08-2024 Amorphous NONE Normal [facility] Comment on above: Performed By: #### 2 96552 ####[facility],[address] [place], [place] [id number] Bacteria 1+ Normal [facility] Comment on above: Performed By: #### 2 44286 ####[facility],[address],[place] [address] Bilirubin Ql (U) Negative Normal NORMAL: NEGATIVE [facility] Comment on above: Performed By: #### 2 59442 ####[facility],[address] [place] [address] 05528 Casts NONE Normal [facility] Comment on above: Performed By: #### 2 36485 ####[facility],[address] [place] [address] 69996 Clarity (U) clear Normal NORMAL: CLEAR [facility] Comment on above: Performed By: #### 2 10900 ####[facility],[address] [place] [address] 06525 Color (U) yellow Normal NORMAL: YELLOW [facility] Comment on above: Performed By: #### 2 03570 ####[facility],[address] [place] [address] 11502 Crystals LM Nom (Urine sed) NONE Normal [facility] Comment on above: Performed By: #### 2 78070 ####[facility],[address] [place] [address] 87862 Epi Cells FEW Normal [facility] Comment on above: Performed By: #### 2 19990 ####[facility],[address] [place] [address] 66847 Glucose Ql (U) 1000 Abnormal NORMAL: NORMAL [facility] Comment on above: Performed By: #### 2 15806 ####[facility],[address] [place] [address] 10854 Hemoglobin Ql (U) 25 Abnormal NORMAL: NEGATIVE [facility] Comment on above: Performed By: #### 2 35431 ####[facility],[address] [place] [address] 03231 Ketone Negative Normal NORMAL: NEGATIVE [facility] Comment on above: Performed By: #### 2 33217 ####[facility],[address] [place] [address] 20952 Leukocytes Negative Normal NORMAL: NEGATIVE [facility] Comment on above: Performed By: #### 2 03851 ####[facility],[address] [place] [address] Mucous 2+ Normal [facility] Comment on above: Performed By: #### 2 46313 ####[facility],[address] [place], [place] [id number] Nitrite Ql (U) Negative Normal NORMAL: NEGATIVE [facility] Comment on above: Performed By: #### 2 95749 ####[facility],[address] [place] [address] pH (U) 5 [pH] Normal NORMAL: 5.0-8.0 [facility] Comment on above: Performed By: #### 2 36839 ####[facility],[address] [place] [address] Protein Ql (U) Negative Normal NORMAL: NEGATIVE [facility] Comment on above: Performed By: #### 2 19260 ####[facility],[address] [place] [address] Rbc 0-5 Normal 0-3/hpf [facility] Comment on above: Performed By: #### 2 61735 ####[facility],[address] [place] [address] Sp [place] 1.020 Normal NORMAL: 1.010-1.030 [facility] Comment on above: Performed By: #### 2 24852 ####[facility],[address] [place] [address] Specimen Type R Normal [facility] Comment on above: Performed By: #### 2 74267 ####[facility],[address] [place] [address] Urinalysis dipstick W Reflex Microscopic panel (U) SEE BELOW Normal [facility] Comment on above: Result Comment: MICR OSCOPIC Performed By: #### 2 40028 ####[facility],[address],[place] [address] Urobilinog NORM Normal NORMAL: NORMAL [facility] Comment on above: Performed By: #### 2 19437 ####[facility],[address] [place] [address] 17071 Wbc NONE Normal 0-5/hpf [facility] Comment on above: Performed By: #### 2 17518 ####[facility],[address] [place] [address] 47036 Yeast NONE Normal [facility] Comment on above: Performed By: #### 2 91223 ####[facility],[address] [place] [address] CBC + DIFFon 10-07-2024 Baso # 0.02 x10EE3/UL Normal 0.00 - 0.10 [facility] Comment on above: Performed By: #### 2 27104 ####[facility],[address] [place] [address] 93768 Basophils/100 WBC (Bld) 0.3 % Normal 0.0 - 2.0 [facility] Comment on above: Performed By: #### 2 39336 ####[facility],[address] [place] [address] CBC + DIFF Normal [facility] Comment on above: Result Comment: CBC- COMPLETE BLOOD COUNT Performed By: #### 2 35665 ####[facility],[address] [place] [address] 47144 EO # 0.03 x10EE3/UL Normal 0.00 - 0.50 [facility] Comment on above: Performed By: #### 2 40679 ####[facility],[address] [place] [address] 80712 Eosinophils/100 WBC (Bld) 0.4 % Normal 0.0 - 7.0 [facility] Comment on above: Performed By: #### 2 48932 ####[facility],[address] [place], [place] [id number] Erythrocyte distribution width (RBC) [Ratio] 17.0 % High 12.0 - 15.6 [facility] Comment on above: Performed By: #### 2 58938 ####[facility],[address] [place] [address] Hematocrit (Bld) [Volume fraction] 36.7 % Normal 34.0 - 46.0 [facility] Comment on above: Performed By: #### 2 38557 ####[facility],[address] [place] [address] Hemoglobin (Bld) [Mass/Vol] 12.2 g/dL Normal 12.0 - 16.0 [facility] Comment on above: Performed By: #### 2 74845 ####[facility],[address] [place] [address] Lymph # 2.83 x10EE3/UL High 0.80 - 2.80 [facility] Comment on above: Performed By: #### 2 22655 ####[facility],[address] [place], [place] [id number] Lymphocytes/100 WBC (Bld) 32.6 % Normal 20.0 - 45.0 [facility] Comment on above: Performed By: #### 2 06104 ####[facility],[address] [place], [place] [id number] MANUAL DIFF N/A Normal [facility] Comment on above: Performed By: #### 2 19078 ####[facility],[address] [place], [place] [id number] MCH (RBC) [Entitic mass] 25 pg Low 27 - 33 [facility] Comment on above: Performed By: #### 2 69895 ####[place] [id number] MCHC 33 X10 3 Normal 32 - 36 [facility] Comment on above: Performed By: #### 2 52510 ####[facility],[address] [place], [place] [id number] MCV (RBC) [Entitic vol] 76 fL Low 80 - 99 [facility] Comment on above: Performed By: #### 2 73971 ####[facility],[address] [place] [address] [place] # 0.75 x10EE3/UL Normal 0.20 - 1.00 [facility] Comment on above: Performed By: #### 2 60591 ####[facility],[address] [place] [address] MONOS % 8.7 % Normal 0.0 - 10.0 [facility] Comment on above: Performed By: #### 2 75996 ####[facility],[address] [place] [address] Morphology Arnie (Bld) [Interp] N/A Normal [facility] Comment on above: Performed By: #### 2 53886 ####[place] [address] Neut # 5.04 x10EE3/UL Normal 1.50 - 7.10 [facility] Comment on above: Performed By: #### 2 61385 ####[place] [address] Neutrophils/100 WBC (Bld) 58.1 % Normal 46.0 - 76.0 [facility] Comment on above: Performed By: #### 2 57534 ####[place] [address] PLATELET 336 x10EE3/UL Normal 150 - 450 [facility] Comment on above: Performed By: #### 2 55443 ####[place] [address] Platelet mean volume (Bld) [Entitic vol] 7.8 fL Normal 6.6 - 10.5 [facility] Comment on above: Result Comment: AUTO MATED DIFFERENTIAL Performed By: #### 2 40251 ####[place] [address] RBC 4.86 x 10EE6/UL Normal 4.10 - 5.30 [facility] Comment on above: Performed By: #### 2 92941 ####[facility],[address] [place] [address] 45122 WBC 8.7 x 10EE3/UL Normal 4.5 - 10.8 [facility] Comment on above: Performed By: #### 2 53471 ####[facility],[address] [place] [address] 41192 CMP with eGFRon 10-07-2024 AGE 29 years Normal [facility] Comment on above: Performed By: #### 2 86337 ####[facility],[address] [place] [address] 32349 Albumin [Mass/Vol] 3.3 g/dL Low 3.4 - 5.0 [facility] Comment on above: Performed By: #### 2 59498 ####[facility],[address] [place], [place] [id number] Albumin/Globulin [Mass ratio] 0.7 {ratio} Low 0.9 - 1.6 [facility] Comment on above: Performed By: #### 2 10191 ####[facility],[address] [place] [address] 75351 ALK PHOS 116 U/L Normal 46 - 116 [facility] Comment on above: Performed By: #### 2 81405 ####[facility],[address] [place] [address] 08986 ALT [Catalytic activity/Vol] 30 U/L Normal 16 - 63 [facility] Comment on above: Performed By: #### 2 96325 ####[facility],[address] [place] [address] 46900 Anion gap [Moles/Vol] 13 mmol/L Normal 10 - 20 [facility] Comment on above: Performed By: #### 2 92902 ####[facility],[address] [place] [address] 55161 AST [Catalytic activity/Vol] 20 U/L Normal 13 - 39 [facility] Comment on above: Performed By: #### 2 55868 ####[facility],[address] [place] [address] 84828 B/C RATIO 7 ratio Normal 0 - 30 [facility] Comment on above: Performed By: #### 2 75425 ####[facility],[address] [place] [address] 68079 Bilirubin [Mass/Vol] 0.6 mg/dL Normal 0.2 - 1.0 [facility] Comment on above: Performed By: #### 2 41482 ####[facility],[address] [place] [address] 88668 Calcium [Mass/Vol] 9.3 mg/dL Normal 8.5 - 10.1 [facility] Comment on above: Performed By: #### 2 02046 ####[facility],[address] [place] [address] 87841 Chloride [Moles/Vol] 102 mmol/L Normal 98 - 107 [facility] Comment on above: Performed By: #### 2 87987 ####[facility],[address] [place] [address] 93318 CMP with eGFR Normal [facility] Comment on above: Result Comment: COMP REHENSIVE METABOLIC PANEL Performed By: #### 2 74952 ####[facility],[address] [place] [address] 40657 CO2 [Moles/Vol] 26.7 mmol/L Normal 21.0 - 32.0 [facility] Comment on above: Performed By: #### 2 53270 ####[facility],[address] [place] [address] 54890 Creatinine [Mass/Vol] 0.97 mg/dL Normal 0.55 - 1.02 [facility] Comment on above: Performed By: #### 2 39203 ####[facility],[address] [place] [address] 19528 GFR/1.73 sq M.predicted among non-blacks MDRD (S/P/Bld) [Vol rate/Area] mL/min/{1.73_m2} Normal 60 - 999 [facility] Comment on above: Performed By: #### 2 09678 ####[facility],[address] [place] [address] 19832 Result Comment: ACCO RDING TO THE NATIONAL KIDNEY DISEASE EDUCATION PROGRAM(NKDE), A NORMAL eGFRIS A VALUE GREATER THAN OR EQUAL TO 60 ML/MIN/1.73 SQ METERS.CHRONIC KIDNEY DISEASE: <60mL/MIN/1.73 SQ METERSKIDNEY FAILURE: <15mL/MIN/1.73 SQ METERSTHIS TEST SHOULD ONLY BE USED FOR PATIENTS 18 YEARS OF AGE AND OLDER. Globulin (S) [Mass/Vol] 4.6 g/dL High 1.5 - 3.8 [facility] Comment on above: Performed By: #### 2 88660 ####[facility],[address] [place] [address] 10169 Glucose [Mass/Vol] 88 mg/dL Normal 74 - 106 [facility] Comment on above: Performed By: #### 2 29681 ####[facility],[address] [place] [address] 17470 Potassium [Moles/Vol] 4.2 mmol/L Normal 3.5 - 5.1 [facility] Comment on above: Performed By: #### 2 07125 ####[facility],[address] [place] [address] 70399 Protein [Mass/Vol] 7.9 g/dL Normal 6.4 - 8.2 [facility] Comment on above: Performed By: #### 2 21847 ####[facility],[address] [place] [address] 20666 Sodium [Moles/Vol] 137 mmol/L Normal 136 - 145 [facility] Comment on above: Performed By: #### 2 95242 ####[facility],[address] [place] [address] Urea nitrogen [Mass/Vol] 7 mg/dL Normal 7 - 18 [facility] Comment on above: Performed By: #### 2 09019 ####[facility],[address] [place] [address] CT KUB (KIDNEY STONE PROTOCO L)on 10-07-2024 CT KUB (KIDNEY STONE PROTOCOL) Normal [facility] LIPASEon 10-07-2024 Lipase [Catalytic activity/Vol] 21.0 U/L Normal 15.0 - 78.0 [facility] Comment on above: Result Comment: *PLE ASE NOTE THAT RANGES FOR LIPASE HAVE CHANGED OF 10/20/23 DUE TO AN ASSAYUPDATE BY THE RIVER PILOT.THE NEW ASSAY RANGE IS 6-250 U/L, WITH A REFERENCERANGE OF 16-77 U/L. Performed By: #### 2 77530 ####[facility],[address] [place] [address] URINEon 10-07-2024 Beta HCG ( test) Ql (U) Negative Normal NEGATIVE [facility] Comment on above: Performed By: #### 2 97049 ####[facility],[address] [place] [address] EXTERNAL QC DONE? YES Normal [facility] Comment on above: Performed By: #### 2 87312 ####[facility],[address] [place] [address] INTERNAL QC PASS Normal [facility] Comment on above: Performed By: #### 2 76367 ####[facility],[address] [place] [address] ED MED ADMINISTRATION DETAIL on 08-27-2024 ED MED ADMINISTRATION DETAIL Normal [facility] ED NURSES CLINICAL NOTEon ED NURSES CLINICAL NOTE Normal [facility] ED ORDER SHEET (CPOE ONLY)on 08-27-2024 ED ORDER SHEET (CPOE ONLY) Normal [facility] ED PHYSICIAN CLINICAL REPORT on 08-27-2024 ED PHYSICIAN CLINICAL REPORT Normal [facility] ED PHYSICIAN DISCHARGE REPOR Ton 08-27-2024 ED PHYSICIAN DISCHARGE REPORT Normal [facility] ED SUPER BILLon 08-27-2024 ED SUPER BILL Normal [facility] ED VISIT SUMMARYon ED VISIT SUMMARY Normal [facility] ED VITALS FLOW SHEETon 08-27 ED VITALS FLOW SHEET Normal [facility] CBC + DIFFon 08-26-2024 Baso # 0.02 x10EE3/UL Normal 0.00 - 0.10 [facility] Comment on above: Performed By: #### 2 33667 ####[facility],[address] [place], [place] [address] Basophils/100 WBC (Bld) 0.3 % Normal 0.0 - 2.0 [facility] Comment on above: Performed By: #### 2 72199 ####[facility],[address] [place] [address] 49174 CBC + DIFF Normal [facility] Comment on above: Result Comment: CBC- COMPLETE BLOOD COUNT Performed By: #### 2 80110 ####[facility],[address] [place] [address] 11122 CELL COUNT 100 Normal [facility] Comment on above: Performed By: #### 2 73646 ####[facility],[address] [place] [address] 20909 EO # 0.02 x10EE3/UL Normal 0.00 - 0.50 [facility] Comment on above: Performed By: #### 2 53645 ####[facility],[address] [place] [address] 27129 Eosinophils/100 WBC (Bld) 0.3 % Normal 0.0 - 7.0 [facility] Comment on above: Performed By: #### 2 48533 ####[facility],[address] [place] [address] 22553 Erythrocyte distribution width (RBC) [Ratio] 17.5 % High 12.0 - 15.6 [facility] Comment on above: Performed By: #### 2 17870 ####[facility],[address] [place] [address] Hematocrit (Bld) [Volume fraction] 40.1 % Normal 34.0 - 46.0 [facility] Comment on above: Performed By: #### 2 26465 ####[facility],[address] [place] [address] Hemoglobin (Bld) [Mass/Vol] 12.9 g/dL Normal 12.0 - 16.0 [facility] Comment on above: Performed By: #### 2 43756 ####[facility],[address] [place] [address] Lymph # 2.19 x10EE3/UL Normal 0.80 - 2.80 [facility] Comment on above: Performed By: #### 2 43840 ####[facility],[address] [place], [place] [id number] Lymphocytes/100 WBC (Bld) 24.1 % Normal 20.0 - 45.0 [facility] Comment on above: Performed By: #### 2 06305 ####[facility],[address] [place], [place] [id number] Lymphocytes/100 WBC (Bld) 25 % Normal 20 - 45 [facility] Comment on above: Performed By: #### 2 64799 ####[facility],[address] [place], [place] [id number] MANUAL DIFF SEE BELOW Normal [facility] Comment on above: Performed By: #### 2 01402 ####[facility],[address] [place], [place] [id number] MCH (RBC) [Entitic mass] 24 pg Low 27 - 33 [facility] Comment on above: Performed By: #### 2 41046 ####[place] [address] MCHC 32 X10 3 Normal 32 - 36 [facility] Comment on above: Performed By: #### 2 09440 ####[facility],[address] [place] [address] MCV (RBC) [Entitic vol] 75 fL Low 80 - 99 J l [facility] Comment on above: Performed By: #### 2 06280 ####[facility],[address] [place] [address] [place] # 0.75 x10EE3/UL Normal 0.20 - 1.00 [facility] Comment on above: Performed By: #### 2 96114 ####[facility],[address] [place] [address] MONOS 6 % Normal 0 - 10 [facility] Comment on above: Performed By: #### 2 57398 ####[facility],[address] [place] [address] MONOS % 8.2 % Normal 0.0 - 10.0 [facility] Comment on above: Performed By: #### 2 65182 ####[place] [address] Morphology Arnie (Bld) [Interp] N/A Normal [facility] Comment on above: Performed By: #### 2 49936 ####[facility],[address] [place] [address] Neut # 6.13 x10EE3/UL Normal 1.50 - 7.10 [facility] Comment on above: Performed By: #### 2 69446 ####[place] [address] Neutrophils/100 WBC (Bld) 67.2 % Normal 46.0 - 76.0 [facility] Comment on above: Performed By: #### 2 01599 ####[place] [address] PLATELET 449 x10EE3/UL Normal 150 - 450 [facility] Comment on above: Performed By: #### 2 80888 ####[facility],[address] [place] [address] Platelet mean volume (Bld) [Entitic vol] 7.9 fL Normal 6.6 - 10.5 [facility] Comment on above: Result Comment: AUTO MATED DIFFERENTIAL Performed By: #### 2 18359 ####[place] [address] RBC 5.38 x 10EE6/UL High 4.10 - 5.30 [facility] Comment on above: Performed By: #### 2 30442 ####[facility],[address] [place] [address] SEGS 69 % Normal 46 - 76 [facility] Comment on above: Performed By: #### 2 94591 ####[place] [address] WBC 9.1 x 10EE3/UL Normal 4.5 - 10.8 [facility] Comment on above: Performed By: #### 2 90497 ####[place] [address] TROPONINon 08-26-2024 HS TROPONIN <4.0 Normal 0.0 - 51.4 [facility] Comment on above: Performed By: #### 2 68887 ####[facility],[address] [place] [address] HS TROPONIN <4.0 Normal 0.0 - 51.4 [facility] Comment on above: Performed By: #### 2 49301 ####[place] [id number] URINALYSISon 08-26-2024 Amorphous NONE Normal [facility] Comment on above: Performed By: #### 2 00076 ####[place] [address] Bacteria 1+ Normal [facility] Comment on above: Performed By: #### 2 94199 ####[facility],[address] [place] [address] 05356 Bilirubin Ql (U) Negative Normal NORMAL: NEGATIVE [facility] Comment on above: Performed By: #### 2 62523 ####[facility],[address] [place] [address] 22822 Casts NONE Normal [facility] Comment on above: Performed By: #### 2 53163 ####[facility],[address] [place] [address] 38248 Clarity (U) clear Normal NORMAL: CLEAR [facility] Comment on above: Performed By: #### 2 08558 ####[facility],[address] [place] [address] 23677 Color (U) p.yel Normal NORMAL: YELLOW [facility] Comment on above: Performed By: #### 2 52333 ####[facility],[address] [place] [address] 97143 Crystals LM Nom (Urine sed) NONE Normal [facility] Comment on above: Performed By: #### 2 42322 ####[facility],[address] [place] [address] 44149 Epi Cells FEW Normal [facility] Comment on above: Performed By: #### 2 25778 ####[facility],[address] [place] [address] 17577 Glucose Ql (U) 1000 Abnormal NORMAL: NORMAL [facility] Comment on above: Performed By: #### 2 21221 ####[facility],[address] [place] [address] 71968 Hemoglobin Ql (U) 10 Abnormal NORMAL: NEGATIVE [facility] Comment on above: Performed By: #### 2 06856 ####[facility],[address] [place] [address] 33334 Ketone 5 Abnormal NORMAL: NEGATIVE [facility] Comment on above: Performed By: #### 2 68495 ####[facility],[address] [place] [address] 81151 Leukocytes Negative Normal NORMAL: NEGATIVE [facility] Comment on above: Performed By: #### 2 47445 ####[facility],[address] [place] [address] 71642 Mucous NONE Normal [facility] Comment on above: Performed By: #### 2 28046 ####[facility],[address] [place], [place] [phone] Nitrite Ql (U) Positive Normal NORMAL: NEGATIVE [facility] Comment on above: Performed By: #### 2 36995 ####[facility],[address] [place], [place] [phone] pH (U) 6.5 [pH] Normal NORMAL: 5.0-8.0 [facility] Comment on above: Performed By: #### 2 15933 ####[facility],[address] [place] [address] Protein Ql (U) 15 Abnormal NORMAL: NEGATIVE [facility] Comment on above: Performed By: #### 2 75409 ####[facility],[address] [place], [place] [id number] Rbc 0-5 Normal 0-3/hpf [facility] Comment on above: Performed By: #### 2 07776 ####[facility],[address] [place], [place] [id number] Sp [place] 1.010 Normal NORMAL: 1.010-1.030 [facility] Comment on above: Performed By: #### 2 84900 ####[facility],[address] [place], [place] [id number] Specimen Type R Normal [facility] Comment on above: Performed By: #### 2 15965 ####[facility],[address] [place], [place] [id number] Urinalysis dipstick W Reflex Microscopic panel (U) SEE BELOW Normal [facility] Comment on above: Result Comment: MICR OSCOPIC Performed By: #### 2 78677 ####[facility],[address] [place] [address] 67105 Urobilinog NORM Normal NORMAL: NORMAL [facility] Comment on above: Performed By: #### 2 62326 ####[facility],[address] [place] [address] 17974 Wbc NONE Normal 0-5/hpf [facility] Comment on above: Performed By: #### 2 71874 ####[facility],[address] [place] [address] 27631 Yeast NONE Normal [facility] Comment on above: Performed By: #### 2 62069 ####[facility],[address] [place] [address] 40689 CBC + DIFFon 08-15-2024 Baso # 0.02 x10EE3/UL Normal 0.00 - 0.10 [facility] Comment on above: Performed By: #### 2 63405 ####[facility],[address] [place] [address] 81648 Basophils/100 WBC (Bld) 0.2 % Normal 0.0 - 2.0 [facility] Comment on above: Performed By: #### 2 58020 ####[facility],[address] [place] [address] 71913 CBC + DIFF Normal [facility] Comment on above: Result Comment: CBC- COMPLETE BLOOD COUNT Performed By: #### 2 77931 ####[facility],[address] [place] [address] 35000 EO # 0.06 x10EE3/UL Normal 0.00 - 0.50 [facility] Comment on above: Performed By: #### 2 58440 ####[facility],[address] [place] [address] 31969 Eosinophils/100 WBC (Bld) 0.7 % Normal 0.0 - 7.0 [facility] Comment on above: Performed By: #### 2 21453 ####[facility],[address] [place] [address] Erythrocyte distribution width (RBC) [Ratio] 17.5 % High 12.0 - 15.6 [facility] Comment on above: Performed By: #### 2 35438 ####[facility],[address] [place] [address] Hematocrit (Bld) [Volume fraction] 40.8 % Normal 34.0 - 46.0 [facility] Comment on above: Performed By: #### 2 37192 ####[facility],[address] [place] [address] Hemoglobin (Bld) [Mass/Vol] 12.9 g/dL Normal 12.0 - 16.0 [facility] Comment on above: Performed By: #### 2 21420 ####[place] [address] Lymph # 2.89 x10EE3/UL High 0.80 - 2.80 [facility] Comment on above: Performed By: #### 2 00164 ####[facility],[address] [place] [address] Lymphocytes/100 WBC (Bld) 33.8 % Normal 20.0 - 45.0 [facility] Comment on above: Performed By: #### 2 75281 ####[facility],[address] [place], [place] [phone] MANUAL DIFF N/A Normal [facility] Comment on above: Performed By: #### 2 13119 ####[facility],[address] [place], [place] [id number] MCH (RBC) [Entitic mass] 24 pg Low 27 - 33 [facility] Comment on above: Performed By: #### 2 53547 ####[place] [address] MCHC 32 X10 3 Normal 32 - 36 [facility] Comment on above: Performed By: #### 2 24082 ####[facility],[address] [place] [address] 81751 MCV (RBC) [Entitic vol] 76 fL Low 80 - 99 [facility] Comment on above: Performed By: #### 2 26452 ####[facility],[address] [place] [address] 04406 [place] # 0.66 x10EE3/UL Normal 0.20 - 1.00 [facility] Comment on above: Performed By: #### 2 87060 ####[facility],[address] [place] [address] 00644 MONOS % 7.7 % Normal 0.0 - 10.0 [facility] Comment on above: Performed By: #### 2 12226 ####[facility],[address] [place] [address] 83082 Morphology Arnie (Bld) [Interp] N/A Normal [facility] Comment on above: Performed By: #### 2 35415 ####[facility],[address] [place] [address] 69225 Neut # 4.94 x10EE3/UL Normal 1.50 - 7.10 [facility] Comment on above: Performed By: #### 2 11555 ####[facility],[address] [place] [address] 03605 Neutrophils/100 WBC (Bld) 57.7 % Normal 46.0 - 76.0 [facility] Comment on above: Performed By: #### 2 19439 ####[facility],[address] [place] [address] 57461 PLATELET 365 x10EE3/UL Normal 150 - 450 [facility] Comment on above: Performed By: #### 2 67309 ####[facility],[address] [place] [address] 02008 Platelet mean volume (Bld) [Entitic vol] 7.9 fL Normal 6.6 - 10.5 [facility] Comment on above: Result Comment: AUTO MATED DIFFERENTIAL Performed By: #### 2 68779 ####[place] [id number] RBC 5.38 x 10EE6/UL High 4.10 - 5.30 [facility] Comment on above: Performed By: #### 2 33773 ####[facility],[address] [place] [address] 85719 WBC 8.6 x 10EE3/UL Normal 4.5 - 10.8 [facility] Comment on above: Performed By: #### 2 29022 ####[facility],[address] [place] [address] CMP with eGFRon 08-15-2024 AGE 29 years Normal [facility] Comment on above: Performed By: #### 2 67715 ####[place] [address] Albumin [Mass/Vol] 3.6 g/dL Normal 3.4 - 5.0 [facility] Comment on above: Performed By: #### 2 72427 ####[facility],[address] [place] [address] 58237 Albumin/Globulin [Mass ratio] 0.8 {ratio} Low 0.9 - 1.6 [facility] Comment on above: Performed By: #### 2 36455 ####[facility],[address] [place] [address] 78495 ALK PHOS 120 U/L High 46 - 116 [facility] Comment on above: Performed By: #### 2 79997 ####[address] [address] ALT [Catalytic activity/Vol] 31 U/L Normal 16 - 63 [facility] Comment on above: Performed By: #### 2 36776 ####[address] [address] Anion gap [Moles/Vol] 14 mmol/L Normal 10 - 20 [facility] Comment on above: Performed By: #### 2 83516 ####[facility],[address] [place] [address] AST [Catalytic activity/Vol] 19 U/L Normal 13 - 39 [facility] Comment on above: Performed By: #### 2 62392 ####[facility],[address] [place] [address] B/C RATIO 12 ratio Normal 0 - 30 [facility] Comment on above: Performed By: #### 2 22168 ####[facility],[address] [place] [address] Bilirubin [Mass/Vol] 0.9 mg/dL Normal 0.2 - 1.0 [facility] Comment on above: Performed By: #### 2 54564 ####[facility],[address] [place] [address] Calcium [Mass/Vol] 9.1 mg/dL Normal 8.5 - 10.1 [facility] Comment on above: Performed By: #### 2 18932 ####[facility],[address] [place] [address] Chloride [Moles/Vol] 102 mmol/L Normal 98 - 107 [facility] Comment on above: Performed By: #### 2 06533 ####[facility],[address] [place], [place] [id number] CMP with eGFR Normal [facility] Comment on above: Result Comment: COMP REHENSIVE METABOLIC PANEL Performed By: #### 2 63027 ####[facility],[address] [place] [address] 01072 CO2 [Moles/Vol] 27.1 mmol/L Normal 21.0 - 32.0 [facility] Comment on above: Performed By: #### 2 98804 ####[facility],[address] [place] [address] 32311 Creatinine [Mass/Vol] 1.10 mg/dL High 0.55 - 1.02 [facility] Comment on above: Performed By: #### 2 04730 ####[facility],[address] [place] [address] 18103 eGFR 58 ML/MINUTE Low 60 - 999 [facility] Comment on above: Performed By: #### 2 39633 ####[facility],[address] [place] [address] 29078 GFR/1.73 sq M.predicted among non-blacks MDRD (S/P/Bld) [Vol rate/Area] mL/min/{1.73_m2} Normal 60 - 999 [facility] Comment on above: Result Comment: ACCO RDING TO THE NATIONAL KIDNEY DISEASE EDUCATION PROGRAM(NKDE), A NORMAL eGFRIS A VALUE GREATER THAN OR EQUAL TO 60 ML/MIN/1.73 SQ METERS.CHRONIC KIDNEY DISEASE: <60mL/MIN/1.73 SQ METERSKIDNEY FAILURE: <15mL/MIN/1.73 SQ METERSTHIS TEST SHOULD ONLY BE USED FOR PATIENTS 18 YEARS OF AGE AND OLDER. Performed By: #### 2 78612 ####[facility],[address] [place] [address] 88650 Globulin (S) [Mass/Vol] 4.5 g/dL High 1.5 - 3.8 [facility] Comment on above: Performed By: #### 2 87594 ####[facility],[address] [place] [address] 53526 Glucose [Mass/Vol] 84 mg/dL Normal 74 - 106 [facility] Comment on above: Performed By: #### 2 46522 ####[address] [address] Potassium [Moles/Vol] 3.6 mmol/L Normal 3.5 - 5.1 [facility] Comment on above: Performed By: #### 2 52019 ####[facility],[address] [place], [place] [phone] Protein [Mass/Vol] 8.1 g/dL Normal 6.4 - 8.2 [facility] Comment on above: Performed By: #### 2 23643 ####[facility],[address] [place], [place] [phone] Sodium [Moles/Vol] 139 mmol/L Normal 136 - 145 [facility] Comment on above: Performed By: #### 2 78487 ####[facility],[address] [place], [place] [id number] Urea nitrogen [Mass/Vol] 13 mg/dL Normal 7 - 18 [facility] Comment on above: Performed By: #### 2 50947 ####[facility],[address] [place], [place] [id number] CT BRAIN W/O CONTRASTon 07-24 CT BRAIN W/O CONTRAST Normal [facility] CT FACIAL BONES W/O CONTRAST on 08-15-2024 CT FACIAL BONES W/O CONTRAST Normal [facility] ED FACILITY CODING SUMMARYon 08-15-2024 ED FACILITY CODING SUMMARY Normal [facility] ED MED ADMINISTRATION DETAIL on 08-15-2024 ED MED ADMINISTRATION DETAIL Normal [facility] ED NURSES CLINICAL NOTEon ED NURSES CLINICAL NOTE Normal [facility] ED ORDER SHEET (CPOE ONLY)on 08-15-2024 ED ORDER SHEET (CPOE ONLY) Normal [facility] ED PHYS CODING ABST SUMMARYo n 08-15-2024 ED PHYS CODING ABST SUMMARY Normal [facility] ED PHYSICIAN CLINICAL REPORT on 08-15-2024 ED PHYSICIAN CLINICAL REPORT Normal [facility] ED PHYSICIAN DISCHARGE REPOR Ton 08-15-2024 ED PHYSICIAN DISCHARGE REPORT Normal [facility] ED SUPER BILLon 08-15-2024 ED SUPER BILL Normal [facility] ED VISIT SUMMARYon ED VISIT SUMMARY Normal [facility] Final Surgical Pathology Rep cole 05-17-2024 Final Surgical Pathology Report . 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 PYLORI IS NEGATIVE CLINICAL INFORMATION: INTRACTABLE NAUSEA AND VOMITING , RIGHT UPPER QUADRANT PAIN Procedure: EGD Preoperative diagnosis: INTRACTABLE NAUSEA AND VOMITING , RIGHT UPPER QUADRANT PAIN Postoperative diagnosis: INTRACTABLE NAUSEA AND VOMITING , RIGHT UPPER QUADRANT PAIN SPECIMEN: A GASTRIC BX R/O HELICOBACTER PYLORI GROSS DESCRIPTION: All parts labelled with patient name and [id number] Received in formalin labeled "gastric biopsy" are 6 craft-pink tissue fragments aggregating 0.1 to 0.3 x 0.1 cm. TS-1 Lindsey Hankins, [employer] Market Consultant/ Dr. Roby Harris, Pathologist Performed by Lindsey Hankins MICROSCOPIC DESCRIPTION: The microscopic examination is performed, except in the case of Gross Only. Electronically Signed by Pathology Report verified by [facility] BRIGITTE PERES Sign out Date: 05/17/2024 09:21 Performing Lab: [facility], [address] [place] [address] Pathology Dept Disclaimer If ancillary studies were utilized, the following Laboratory Developed Test (LDT) disclaimer will apply: Under CLIA requirements, [facility] Pathology Laboratory is qualified to perform high complexity testing. For all ancillary stains, positive and negative controls stain appropriately. Performance characteristics of immunohistochemical and chromogenic in-situ hybridization tests have been determined by [facility] Pathology Laboratory. These tests are used for clinical purposes, They should not be regarded as investigational or for research. Normal Counts Include [address] [facility] ([place]) .Auto Diffon 05-16-2024 Basophil, Absolute 0.0 10 3/mcL Normal 0.0-0.3 [facility] ([place]) Comment on above: Performed By: #### A VISHAL, HEPAC, CBC, ADIFF, GFR, MG, CMP #### [place] [address] Basophils/100 WBC (Bld) 0.4 % Normal 0.0-2.5 A [facility] ([place]) Comment on above: Performed By: #### A VISHAL, HEPAC, CBC, ADIFF, GFR, MG, CMP #### [address] [address] Eosinophil, Absolute 0.0 10 3/mcL Normal 0.0-0.7 [facility] ([place]) Comment on above: Performed By: #### A VISHAL, HEPAC, CBC, ADIFF, GFR, MG, CMP #### [address] [address] Eosinophils/100 WBC (Bld) 0.1 % Normal 0.0-6.0 Counts Include [address] [facility] ([place]) Comment on above: Performed By: #### A VISHAL, HEPAC, CBC, ADIFF, GFR, MG, CMP #### [address] [address] Lymphocyte, Absolute 2.0 10 3/mcL Normal 0.9-4.3 [facility] ([place]) Comment on above: Performed By: #### A VISHAL, HEPAC, CBC, ADIFF, GFR, MG, CMP #### [address] [address] Lymphocytes/100 WBC (Bld) 33.0 % Normal 20.0-40.0 Counts Include [address] [facility] ([place]) Comment on above: Performed By: #### A VISHAL, HEPAC, CBC, ADIFF, GFR, MG, CMP #### [address] [address] Monocyte, Absolute 0.6 10 3/mcL Normal 0.1-1.4 [facility] ([place]) Comment on above: Performed By: #### A VISHAL, HEPAC, CBC, ADIFF, GFR, MG, CMP #### [address] [address] Monocytes/100 WBC (Bld) 10.1 % Normal 2.0-13.0 A [facility] ([place]) Comment on above: Performed By: #### A VISHAL, HEPAC, CBC, ADIFF, GFR, MG, CMP #### [address] [address] Neutrophils/100 WBC (Bld) 56.4 % Normal 50.0-75.0 Counts Include [address] [facility] ([place]) Comment on above: Performed By: #### A VISHAL, HEPAC, CBC, ADIFF, GFR, MG, CMP #### [place] [id number] [place] [id number] .GFRon 05-16-2024 GFR Non- >60 Normal Counts Include [address] [facility] ([place]) Comment on above: Result Comment: GFR Population mean for , Non- Americans Ages 20-29 = 116 mL/min/1.73 sq.m. Ages 30-39 = 107 mL/min/1.73 sq.m. Ages 40-49 = 99 mL/min/1.73 sq.m. Ages 50-59 = 93 mL/min/1.73 sq.m. Ages 60-69 = 85 mL/min/1.73 sq.m. Ages 70+ = 75 mL/min/1.73 sq.m. Chronic Kidney Disease: Less than 60 mL/min/1.73 square meters End Stage Renal Disease: Less than 15 mL/min/1.73 square meters Performed By: #### A VISHAL, HEPAC, CBC, ADIFF, GFR, MG, CMP #### [address] [address] GFR >60 Normal [facility] ([place]) Comment on above: Result Comment: GFR Population mean for , Non- Americans Ages 20-29 = 116 mL/min/1.73 sq.m. Ages 30-39 = 107 mL/min/1.73 sq.m. Ages 40-49 = 99 mL/min/1.73 sq.m. Ages 50-59 = 93 mL/min/1.73 sq.m. Ages 60-69 = 85 mL/min/1.73 sq.m. Ages 70+ = 75 mL/min/1.73 sq.m. Chronic Kidney Disease: Less than 60 mL/min/1.73 square meters End Stage Renal Disease: Less than 15 mL/min/1.73 square meters Performed By: #### A VISHAL, HEPAC, CBC, ADIFF, GFR, MG, CMP #### [address] [address] .NEUABSon 05-16-2024 Neutrophil, Absolute 3.4 10 3/mcL Normal 2.3-8.1 [facility] ([place]) Comment on above: Performed By: #### A VISHAL, HEPAC, CBC, ADIFF, GFR, MG, CMP #### [place] [address] CBCon 05-16-2024 Erythrocyte distribution width (RBC) [Ratio] 17.3 % High 11.5-15.5 Counts Include [address] [facility] ([place]) Comment on above: Performed By: #### A VISHAL, HEPAC, CBC, ADIFF, GFR, MG, CMP #### [place] [address] Hematocrit (Bld) [Volume fraction] 35.9 % Normal 34.0-46.0 Counts Include [address] [facility] ([place]) Comment on above: Performed By: #### A VISHAL, HEPAC, CBC, ADIFF, GFR, MG, CMP #### [place] [address] Hgb 11.5 G/dL Low 12.0-16.0 Counts Include [address] [facility] ([place]) Comment on above: Performed By: #### A VISHAL, HEPAC, CBC, ADIFF, GFR, MG, CMP #### [place] [address] MCH (RBC) [Entitic mass] 24.7 pg Low 27.0-33.0 Counts Include [address] [facility] ([place]) Comment on above: Performed By: #### A VISHAL, HEPAC, CBC, ADIFF, GFR, MG, CMP #### [place] [address] MCHC 32.2 G/dL Normal 32.0-36.0 Counts Include [address] [facility] ([place] Comment on above: Performed By: #### A VISHAL, HEPAC, CBC, ADIFF, GFR, MG, CMP #### [place] [address] MCV (RBC) [Entitic vol] 77.0 fL Low 80.0-99.0 A [facility] ([place]) Comment on above: Performed By: #### A VISHAL, HEPAC, CBC, ADIFF, GFR, MG, CMP #### [place] [id number] Platelet 299 10 3/mcL Normal 150-450 Counts Include [address] [facility] ([place]) Comment on above: Performed By: #### A VISHAL, HEPAC, CBC, ADIFF, GFR, MG, CMP #### [place] [address] Platelet mean volume (Bld) [Entitic vol] 8.0 fL Normal 6.6-10.5 Counts Include [address] [facility] ([place]) Comment on above: Performed By: #### A VISHAL, HEPAC, CBC, ADIFF, GFR, MG, CMP #### [place] [id number] RBC 4.66 10 6/mcL Normal 4.10-5.30 Counts Include [address] [facility] ([place]) Comment on above: Performed By: #### A VISHAL, HEPAC, CBC, ADIFF, GFR, MG, CMP #### [place] [address] WBC 6.0 10 3/mcL Normal 4.5-10.8 Counts Include [address] [facility] ([place] Comment on above: Performed By: #### A VISHAL, HEPAC, CBC, ADIFF, GFR, MG, CMP #### [place] [address] CMPon 05-16-2024 BUN/Creatinine Ratio Unable to Calculate Normal 10.0-2 2.0 Counts Include [address] [facility] ([place]) Comment on above: Result Comment: Unab le to calculate this test result accurately. Results used to calculate this test are outside the reportable range. Performed By: #### A VISHAL, HEPAC, CBC, ADIFF, GFR, MG, CMP #### [place] [address] Urea nitrogen [Mass/Vol] mg/dL Low 8.0-22.0 Counts Include [address] [facility] ([place]) Comment on above: Performed By: #### A VISHAL, HEPAC, CBC, ADIFF, GFR, MG, CMP #### [place] [address] Albumin Level 3.1 G/dL Low 3.2-4.8 Counts Include [address] [facility] ([place]) Comment on above: Performed By: #### A VISHAL, HEPAC, CBC, ADIFF, GFR, MG, CMP #### [address] [address] Albumin/Globulin [Mass ratio] 1.0 {ratio} Normal 0.9-1.6 Counts Include [address] [facility] ([place]) Comment on above: Performed By: #### A VISHAL, HEPAC, CBC, ADIFF, GFR, MG, CMP #### [address] [address] ALP [Catalytic activity/Vol] 102 U/L Normal 38-126 Counts Include [address] [facility] ([place]) Comment on above: Performed By: #### A VISHAL, HEPAC, CBC, ADIFF, GFR, MG, CMP #### [address] [address] ALT [Catalytic activity/Vol] 94 U/L High 10-49 Counts Include [address] [facility] ([place]) Comment on above: Performed By: #### A VISHAL, HEPAC, CBC, ADIFF, GFR, MG, CMP #### [address] [address] AST [Catalytic activity/Vol] 47 U/L High 8-34 Counts Include [address] [facility] ([place]) Comment on above: Performed By: #### A VISHAL, HEPAC, CBC, ADIFF, GFR, MG, CMP #### [address] [address] Bili Total 1.30 mg/dL High 0.20-1.20 Counts Include [address] [facility] ([place]) Comment on above: Result Comment: Use of this assay is not recommended for patients undergoing treatment with eltrombopag due to the potential for falsely elevated results. Performed By: #### A VISHAL, HEPAC, CBC, ADIFF, GFR, MG, CMP #### [address] [address] Calcium [Mass/Vol] 8.8 mg/dL Normal 8.7-10.4 [facility] ([place]) Comment on above: Performed By: #### A VISHAL, HEPAC, CBC, ADIFF, GFR, MG, CMP #### [address] [address] Chloride [Moles/Vol] 105 mmol/L Normal 98-110 [facility] ([place]) Comment on above: Performed By: #### A VISHAL, HEPAC, CBC, ADIFF, GFR, MG, CMP #### [address] [address] CO2 [Moles/Vol] 28 mmol/L Normal 22-32 Counts Include [address] [facility] ([place]) Comment on above: Performed By: #### A VISHAL, HEPAC, CBC, ADIFF, GFR, MG, CMP #### [place] [id number] Creatinine [Mass/Vol] 0.92 mg/dL Normal 0.50-1.20 [facility] ([place]) Comment on above: Performed By: #### A VISHAL, HEPAC, CBC, ADIFF, GFR, MG, CMP #### [place] [address] Electrolyte Balance 11.0 mEq/L Normal 4.0-15.0 [facility] ([place]) Comment on above: Performed By: #### A VISHAL, HEPAC, CBC, ADIFF, GFR, MG, CMP #### [place] [address] Globulin 3.2 G/dL Normal 1.5-3.8 Counts Include [address] [facility] ([place] Comment on above: Performed By: #### A VISHAL, HEPAC, CBC, ADIFF, GFR, MG, CMP #### [place] [address] Glucose [Mass/Vol] 86 mg/dL Normal 70-110 [facility] ([place]) Comment on above: Performed By: #### A VISHAL, HEPAC, CBC, ADIFF, GFR, MG, CMP #### [place] [address] Potassium [Moles/Vol] 3.2 mmol/L Low 3.5-5.0 [facility] ([place]) Comment on above: Performed By: #### A VISHAL, HEPAC, CBC, ADIFF, GFR, MG, CMP #### [address] [address] Sodium [Moles/Vol] 144 mmol/L Normal 136-145 [facility] ([place]) Comment on above: Performed By: #### A VISHAL, HEPAC, CBC, ADIFF, GFR, MG, CMP #### [address] [address] Total Protein 6.3 G/dL Normal 5.7-8.2 Counts Include [address] [facility] ([place]) Comment on above: Result Comment: No te - New Reference Range in effect 20 Performed By: #### A VISHAL, HEPAC, CBC, ADIFF, GFR, MG, CMP #### [place] [address] Romeo 05-16-2024 Potassium [Moles/Vol] 3.4 mmol/L Low 3.5-5.0 [facility] ([place]) Comment on above: Performed By: #### K #### [place] [address] LABORATORYOrdered By: SYSTEM SYSTEM on 05-16-2024 Potassium [Moles/Vol] 3.4 mmol/L Low 3.5 - 5.0 mEq/L ADM SS Albumin BCP dye [Mass/Vol] 3.1 G/dL Low 3.2 - 4.8 G/dL ADM SS Albumin/Globulin [Mass ratio] 1.0 {ratio} Normal 0.9 - 1.6 ratio ADM SS ALP [Catalytic activity/Vol] 102 U/L Normal 38 - 126 U/L ADM SS ALT No additional P-5'-P [Catalytic activity/Vol] 94 U/L High 10 - 49 U/L ADM SS AST [Catalytic activity/Vol] 47 U/L High 8 - 34 U/L ADM SS Basophils (Bld) [#/Vol] 0.0 103/mcL Normal 0.0 - 0.3 10^3/mcL Workflow SS Basophils/100 WBC (Bld) 0.4 % Normal 0.0 - 2.5 % Workflow SS Bilirubin [Mass/Vol] 1.30 mg/dL High 0.20 - 1.20 mg/dL ADM SS Comment on above: Interpretive Data: U se of this assay is not recommended for patients undergoing treatment with eltrombopag due to the potential for falsely elevated results. Calcium [Mass/Vol] 8.8 mg/dL Normal 8.7 - 10. 4 mg/dL ADM SS Chloride [Moles/Vol] 105 mmol/L Normal 98 - 11 0 mEq/L ADM SS CO2 [Moles/Vol] 28 mmol/L Normal 22 - 32 mEq/L ADM SS Creatinine [Mass/Vol] 0.92 mg/dL Normal 0.50 - 1.20 mg/dL ADM SS Electrolyte Balance 11.0 mEq/L Normal 4.0 - 15 .0 mEq/L ADM SS Eosinophils (Bld) [#/Vol] 0.0 103/mcL Normal 0.0 - 0.7 10^3/mcL Workflow SS Eosinophils/100 WBC (Bld) 0.1 % Normal 0.0 - 6.0 % Workflow SS Erythrocyte distribution width (RBC) [Ratio] 17.3 % High 11.5 - 15.5 % Workflow SS GFR/1.73 sq M.predicted among blacks MDRD (S/P/Bld) [Vol rate/Area] ml/min/1.73sqm Invalid Interpretation Code Satell[employer] Chemistry S Comment on above: Interpretive Data: GFR Population mean for , Non- Americans Ages 20-29 = 116 mL/min/1.73 sq.m. Ages 30-39 = 107 mL/min/1.73 sq.m. Ages 40-49 = 99 mL/min/1.73 sq.m. Ages 50-59 = 93 mL/min/1.73 sq.m. Ages 60-69 = 85 mL/min/1.73 sq.m. Ages 70+ = 75 mL/min/1.73 sq.m. Chronic Kidney Disease: Less than 60 mL/min/1.73 square meters End Stage Renal Disease: Less than 15 mL/min/1.73 square meters GFR/1.73 sq M.predicted among non-blacks MDRD (S/P/Bld) [Vol rate/Area] ml/min/1.73sqm Invalid Interpretation Code [employer] Chemistry S Comment on above: Interpretive Data: GFR Population mean for , Non- Americans Ages 20-29 = 116 mL/min/1.73 sq.m. Ages 30-39 = 107 mL/min/1.73 sq.m. Ages 40-49 = 99 mL/min/1.73 sq.m. Ages 50-59 = 93 mL/min/1.73 sq.m. Ages 60-69 = 85 mL/min/1.73 sq.m. Ages 70+ = 75 mL/min/1.73 sq.m. Chronic Kidney Disease: Less than 60 mL/min/1.73 square meters End Stage Renal Disease: Less than 15 mL/min/1.73 square meters Globulin 3.2 G/dL Normal 1.5 - 3.8 G/dL AH ADM SS Glucose [Mass/Vol] 86 mg/dL Normal 70 - 110 mg/dL AH ADM SS Hematocrit (Bld) [Volume fraction] 35.9 % Normal 34.0 - 46.0 % AH Workflow SS Hemoglobin (Bld) [Mass/Vol] 11.5 G/dL Low 12.0 - 16.0 G/dL AH Workflow SS Lymphocytes (Bld) [#/Vol] 2.0 103/mcL Normal 0.9 - 4.3 10^3/mcL AH Workflow SS Lymphocytes/100 WBC (Bld) 33.0 % Normal 20.0 - 40.0 % AH Workflow SS Magnesium [Mass/Vol] 1.6 mg/dL Normal 1.6 - 2 .4 mg/dL AH ADM SS MCH (RBC) [Entitic mass] 24.7 pg Low 27.0 - 33.0 pg AH Workflow SS MCHC 32.2 G/dL Normal 32.0 - 36.0 G/dL AH Workflow SS MCV (RBC) [Entitic vol] 77.0 fL Low 80.0 - 99.0 fL AH Workflow SS Monocytes (Bld) [#/Vol] 0.6 103/mcL Normal 0.1 - 1.4 10^3/mcL AH Workflow SS Monocytes/100 WBC (Bld) 10.1 % Normal 2.0 - 13.0 % AH Workflow SS Neutrophils (Bld) [#/Vol] 3.4 103/mcL Normal 2.3 - 8.1 10^3/mcL AH Workflow SS Neutrophils/100 WBC (Bld) 56.4 % Normal 50.0 - 75.0 % AH Workflow SS Platelet mean volume (Bld) [Entitic vol] 8.0 fL Normal 6.6 - 10.5 fL AH Workflow SS Platelets (Bld) [#/Vol] 299 103/mcL Normal 150 - 450 10^3/mcL AH Workflow SS Potassium [Moles/Vol] 3.2 mmol/L Low 3.5 - 5.0 mEq/L AH ADM SS Protein [Mass/Vol] 6.3 G/dL Normal 5.7 - 8.2 G/dL AH ADM SS Comment on above: Interpretive Data: * *Note - New Reference Range in effect 20 RBC (Bld) [#/Vol] 4.66 106/mcL Normal 4.10 - 5.3 0 10^6/mcL AH Workflow SS Sodium [Moles/Vol] 144 mmol/L Normal 136 - 145 mEq/L AH ADM SS WBC (Bld) [#/Vol] 6.0 103/mcL Normal 4.5 - 10.8 10^3/mcL Workflow SS LABORATORYOrdered By: Cori Felton on 05-16-2024 Blood Glucose Testing Reason Routine (05/16/24 12:01 PM) [facility] Work Phone: Glucose [Mass/Vol] 96 mg/dL Normal 70 - 110 mg/dL [facility] Work Phone: Blood Glucose Testing Reason Routine (05/16/24 7:58 AM) [facility] Work Phone: Glucose [Mass/Vol] 79 mg/dL Normal 70 - 110 mg/dL [facility] Work Phone: LABORATORYOrdered By: Jasiel Hubbard on 05-16-2024 Urea nitrogen [Mass/Vol] mg/dL Low 8.0 - 22.0 mg/dL Chemistry S Urea nitrogen/Creatinine [Mass ratio] Unable to Calculate Invalid Interpretation Code 10.0 - 22.0 Chemistry S Comment on above: Result Comment: Unab le to calculate this test result accurately. Results used to calculate this test are outside the reportable range. MGon 05-16-2024 Magnesium [Mass/Vol] 1.6 mg/dL Normal 1.6-2.4 [facility] ([place]) Comment on above: Performed By: #### A VISHAL, HEPAC, CBC, ADIFF, GFR, MG, CMP #### [address] [address] .Auto Diffon 05-15-2024 Basophil, Absolute 0.0 10 3/mcL Normal 0.0-0.3 [facility] ([place]) Comment on above: Performed By: #### A VISHAL, HEPAC, CBC, ADIFF, GFR, MG, CMP #### [address] [address] Basophils/100 WBC (Bld) 0.4 % Normal 0.0-2.5 A [facility] ([place]) Comment on above: Performed By: #### A VISHAL, HEPAC, CBC, ADIFF, GFR, MG, CMP #### [address] [address] Eosinophil, Absolute 0.0 10 3/mcL Normal 0.0-0.7 [facility] ([place]) Comment on above: Performed By: #### A VISHAL, HEPAC, CBC, ADIFF, GFR, MG, CMP #### [address] [address] Eosinophils/100 WBC (Bld) 0.0 % Normal 0.0-6.0 Counts Include [address] [facility] ([place]) Comment on above: Performed By: #### A VISHAL, HEPAC, CBC, ADIFF, GFR, MG, CMP #### [address] [address] Lymphocyte, Absolute 3.1 10 3/mcL Normal 0.9-4.3 [facility] ([place]) Comment on above: Performed By: #### A VISHAL, HEPAC, CBC, ADIFF, GFR, MG, CMP #### [address] [address] Lymphocytes/100 WBC (Bld) 39.9 % Normal 20.0-40.0 Counts Include [address] [facility] ([place]) Comment on above: Performed By: #### A VISHAL, HEPAC, CBC, ADIFF, GFR, MG, CMP #### [address] [address] Monocyte, Absolute 0.7 10 3/mcL Normal 0.1-1.4 [facility] ([place]) Comment on above: Performed By: #### A VISHAL, HEPAC, CBC, ADIFF, GFR, MG, CMP #### [address] [address] Monocytes/100 WBC (Bld) 9.2 % Normal 2.0-13.0 A [facility] ([place]) Comment on above: Performed By: #### A VISHAL, HEPAC, CBC, ADIFF, GFR, MG, CMP #### [address] [address] Neutrophils/100 WBC (Bld) 50.5 % Normal 50.0-75.0 Counts Include [address] [facility] ([place]) Comment on above: Performed By: #### A VISHAL, HEPAC, CBC, ADIFF, GFR, MG, CMP #### [address] [address] .GFRon 05-15-2024 GFR >60 Normal [facility] ([place]) Comment on above: Result Comment: GFR Population mean for , Non- Americans Ages 20-29 = 116 mL/min/1.73 sq.m. Ages 30-39 = 107 mL/min/1.73 sq.m. Ages 40-49 = 99 mL/min/1.73 sq.m. Ages 50-59 = 93 mL/min/1.73 sq.m. Ages 60-69 = 85 mL/min/1.73 sq.m. Ages 70+ = 75 mL/min/1.73 sq.m. Chronic Kidney Disease: Less than 60 mL/min/1.73 square meters End Stage Renal Disease: Less than 15 mL/min/1.73 square meters Performed By: #### A VISHLA, HEPAC, CBC, ADIFF, GFR, MG, CMP #### [address] [address] GFR Non- >60 Normal Counts Include [address] [facility] ([place]) Comment on above: Result Comment: GFR Population mean for , Non- Americans Ages 20-29 = 116 mL/min/1.73 sq.m. Ages 30-39 = 107 mL/min/1.73 sq.m. Ages 40-49 = 99 mL/min/1.73 sq.m. Ages 50-59 = 93 mL/min/1.73 sq.m. Ages 60-69 = 85 mL/min/1.73 sq.m. Ages 70+ = 75 mL/min/1.73 sq.m. Chronic Kidney Disease: Less than 60 mL/min/1.73 square meters End Stage Renal Disease: Less than 15 mL/min/1.73 square meters Performed By: #### A VISHAL, HEPAC, CBC, ADIFF, GFR, MG, CMP #### [address] [address] .NEUABSon 05-15-2024 Neutrophil, Absolute 3.9 10 3/mcL Normal 2.3-8.1 [facility] ([place]) Comment on above: Performed By: #### A VISHAL, HEPAC, CBC, ADIFF, GFR, MG, CMP #### [place] [address] CBCon 05-15-2024 Erythrocyte distribution width (RBC) [Ratio] 16.5 % High 11.5-15.5 Counts Include [address] [facility] ([place]) Comment on above: Performed By: #### A VISHAL, HEPAC, CBC, ADIFF, GFR, MG, CMP #### [place] [address] Hematocrit (Bld) [Volume fraction] 36.4 % Normal 34.0-46.0 Counts Include [address] [facility] ([place] Comment on above: Performed By: #### A VISHAL, HEPAC, CBC, ADIFF, GFR, MG, CMP #### [place] [address] Hgb 11.5 G/dL Low 12.0-16.0 Counts Include [address] [facility] ([place]) Comment on above: Performed By: #### A VISHAL, HEPAC, CBC, ADIFF, GFR, MG, CMP #### [place] [address] MCH (RBC) [Entitic mass] 24.4 pg Low 27.0-33.0 Counts Include [address] [facility] ([place]) Comment on above: Performed By: #### A VISHAL, HEPAC, CBC, ADIFF, GFR, MG, CMP #### [address] [address] MCHC 31.6 G/dL Low 32.0-36.0 Counts Include [address] [facility] ([place]) Comment on above: Performed By: #### A VISHAL, HEPAC, CBC, ADIFF, GFR, MG, CMP #### [place] [address] MCV (RBC) [Entitic vol] 77.3 fL Low 80.0-99.0 A [facility] ([place]) Comment on above: Performed By: #### A VISHAL, HEPAC, CBC, ADIFF, GFR, MG, CMP #### [place] [address] Platelet 321 10 3/mcL Normal 150-450 Counts Include [address] [facility] ([place]) Comment on above: Performed By: #### A VISHAL, HEPAC, CBC, ADIFF, GFR, MG, CMP #### [place] [address] Platelet mean volume (Bld) [Entitic vol] 7.9 fL Normal 6.6-10.5 Counts Include [address] [facility] ([place]) Comment on above: Performed By: #### A VISHAL, HEPAC, CBC, ADIFF, GFR, MG, CMP #### [place] [address] RBC 4.71 10 6/mcL Normal 4.10-5.30 Counts Include [address] [facility] ([place] Comment on above: Performed By: #### A VISHAL, HEPAC, CBC, ADIFF, GFR, MG, CMP #### [place] [address] WBC 7.7 10 3/mcL Normal 4.5-10.8 Counts Include [address] [facility] ([place] Comment on above: Performed By: #### A VISHAL, HEPAC, CBC, ADIFF, GFR, MG, CMP #### [place] [address] CMPon 05-15-2024 Albumin Level 3.3 G/dL Normal 3.2-4.8 Counts Include [address] [facility] ([place]) Comment on above: Performed By: #### A VISHAL, HEPAC, CBC, ADIFF, GFR, MG, CMP #### [address] [address] Albumin/Globulin [Mass ratio] 1.0 {ratio} Normal 0.9-1.6 Counts Include [address] [facility] ([place]) Comment on above: Performed By: #### A VISHAL, HEPAC, CBC, ADIFF, GFR, MG, CMP #### [address] [address] ALP [Catalytic activity/Vol] 104 U/L Normal 38-126 Counts Include [address] [facility] ([place]) Comment on above: Performed By: #### A VISHAL, HEPAC, CBC, ADIFF, GFR, MG, CMP #### [address] [address] ALT [Catalytic activity/Vol] 107 U/L High 10-49 Counts Include [address] [facility] ([place]) Comment on above: Performed By: #### A VISHAL, HEPAC, CBC, ADIFF, GFR, MG, CMP #### [place] [id number] AST [Catalytic activity/Vol] 45 U/L High 8-34 Counts Include [address] [facility] ([place]) Comment on above: Performed By: #### A VISHAL, HEPAC, CBC, ADIFF, GFR, MG, CMP #### [place] [id number] Bili Total 1.00 mg/dL Normal 0.20-1.20 Counts Include [address] [facility] ([place]) Comment on above: Result Comment: Use of this assay is not recommended for patients undergoing treatment with eltrombopag due to the potential for falsely elevated results. Performed By: #### A VISHAL, HEPAC, CBC, ADIFF, GFR, MG, CMP #### [place] [id number] BUN/Creatinine Ratio 6.2 ratio Low 10.0-22.0 [facility] ([place]) Comment on above: Performed By: #### A VISHAL, HEPAC, CBC, ADIFF, GFR, MG, CMP #### [address] [address] Calcium [Mass/Vol] 8.7 mg/dL Normal 8.7-10.4 [facility] ([place]) Comment on above: Performed By: #### A VISHAL, HEPAC, CBC, ADIFF, GFR, MG, CMP #### [place] [id number] Chloride [Moles/Vol] 107 mmol/L Normal 98-110 [facility] ([place]) Comment on above: Performed By: #### A VISHAL, HEPAC, CBC, ADIFF, GFR, MG, CMP #### [address] [address] CO2 [Moles/Vol] 27 mmol/L Normal 22-32 Counts Include [address] [facility] At [facility] ([place]) Comment on above: Performed By: #### A VISHAL, HEPAC, CBC, ADIFF, GFR, MG, CMP #### [place] [id number] Creatinine [Mass/Vol] 0.81 mg/dL Normal 0.50-1.20 [facility] ([place]) Comment on above: Performed By: #### A VISHAL, HEPAC, CBC, ADIFF, GFR, MG, CMP #### [place] [address] Electrolyte Balance 8.0 mEq/L Normal 4.0-15.0 [facility] ([place]) Comment on above: Performed By: #### A VISHAL, HEPAC, CBC, ADIFF, GFR, MG, CMP #### [address] [address] Globulin 3.4 G/dL Normal 1.5-3.8 Counts Include 234 [facility] At [facility] ([place]) Comment on above: Performed By: #### A VISHAL, HEPAC, CBC, ADIFF, GFR, MG, CMP #### [place] [id number] Glucose [Mass/Vol] 75 mg/dL Normal 70-110 [facility] ([place]) Comment on above: Performed By: #### A VISHAL, HEPAC, CBC, ADIFF, GFR, MG, CMP #### [place] [id number] Potassium [Moles/Vol] 3.2 mmol/L Low 3.5-5.0 [facility] ([place]) Comment on above: Performed By: #### A VISHAL, HEPAC, CBC, ADIFF, GFR, MG, CMP #### [address] [address] Sodium [Moles/Vol] 142 mmol/L Normal 136-145 [facility] ([place]) Comment on above: Performed By: #### A VISHAL, HEPAC, CBC, ADIFF, GFR, MG, CMP #### [address] [address] Total Protein 6.7 G/dL Normal 5.7-8.2 Counts Include [address] [facility] At [facility] ([place]) Comment on above: Result Comment: No te - New Reference Range in effect 20 Performed By: #### A VISHAL, HEPAC, CBC, ADIFF, GFR, MG, CMP #### [address] [address] Urea nitrogen [Mass/Vol] 5.0 mg/dL Low 8.0-22.0 Counts Include [address] [facility] ([place]) Comment on above: Performed By: #### A VISHAL, HEPAC, CBC, ADIFF, GFR, MG, CMP #### [address] [address] LABORATORYOrdered By: Patricia Kruse on 05-15-2024 Blood Glucose Testing Reason Routine (05/15/24 9:59 PM) [facility] Work Phone: Glucose [Mass/Vol] 89 mg/dL Normal 70 - 110 mg/dL [facility] Work Phone: LABORATORYOrdered By: Rudy Mcknight on 05-15-2024 Glucose [Mass/Vol] 96 mg/dL [facility] Work Phone: Time of Stated Blood Glucose [phone] [facility] Work Phone: LABORATORYOrdered By: SYSTEM SYSTEM on 05-15-2024 Albumin BCP dye [Mass/Vol] 3.3 G/dL Normal 3.2 - 4.8 G/dL ADM SS Albumin/Globulin [Mass ratio] 1.0 {ratio} Normal 0.9 - 1.6 ratio ADM SS ALP [Catalytic activity/Vol] 104 U/L Normal 38 - 126 U/L ADM SS ALT No additional P-5'-P [Catalytic activity/Vol] 107 U/L High 10 - 49 U/L ADM SS AST [Catalytic activity/Vol] 45 U/L High 8 - 34 U/L ADM SS Basophils (Bld) [#/Vol] 0.0 103/mcL Normal 0.0 - 0.3 10^3/mcL Workflow SS Basophils/100 WBC (Bld) 0.4 % Normal 0.0 - 2.5 % Workflow SS Bilirubin [Mass/Vol] 1.00 mg/dL Normal 0.20 - 1.20 mg/dL ADM SS Comment on above: Interpretive Data: U se of this assay is not recommended for patients undergoing treatment with eltrombopag due to the potential for falsely elevated results. Calcium [Mass/Vol] 8.7 mg/dL Normal 8.7 - 10. 4 mg/dL ADM SS Chloride [Moles/Vol] 107 mmol/L Normal 98 - 11 0 mEq/L ADM SS CO2 [Moles/Vol] 27 mmol/L Normal 22 - 32 mEq/L ADM SS Creatinine [Mass/Vol] 0.81 mg/dL Normal 0.50 - 1.20 mg/dL ADM SS Electrolyte Balance 8.0 mEq/L Normal 4.0 - 15 .0 mEq/L ADM SS Eosinophils (Bld) [#/Vol] 0.0 103/mcL Normal 0.0 - 0.7 10^3/mcL Workflow SS Eosinophils/100 WBC (Bld) 0.0 % Normal 0.0 - 6.0 % Workflow SS Erythrocyte distribution width (RBC) [Ratio] 16.5 % High 11.5 - 15.5 % Workflow SS GFR/1.73 sq M.predicted among blacks MDRD (S/P/Bld) [Vol rate/Area] ml/min/1.73sqm Invalid Interpretation Code Chemistry S Comment on above: Interpretive Data: GFR Population mean for , Non- Americans Ages 20-29 = 116 mL/min/1.73 sq.m. Ages 30-39 = 107 mL/min/1.73 sq.m. Ages 40-49 = 99 mL/min/1.73 sq.m. Ages 50-59 = 93 mL/min/1.73 sq.m. Ages 60-69 = 85 mL/min/1.73 sq.m. Ages 70+ = 75 mL/min/1.73 sq.m. Chronic Kidney Disease: Less than 60 mL/min/1.73 square meters End Stage Renal Disease: Less than 15 mL/min/1.73 square meters GFR/1.73 sq M.predicted among non-blacks MDRD (S/P/Bld) [Vol rate/Area] ml/min/1.73sqm Invalid Interpretation Code Chemistry S Comment on above: Interpretive Data: GFR Population mean for , Non- Americans Ages 20-29 = 116 mL/min/1.73 sq.m. Ages 30-39 = 107 mL/min/1.73 sq.m. Ages 40-49 = 99 mL/min/1.73 sq.m. Ages 50-59 = 93 mL/min/1.73 sq.m. Ages 60-69 = 85 mL/min/1.73 sq.m. Ages 70+ = 75 mL/min/1.73 sq.m. Chronic Kidney Disease: Less than 60 mL/min/1.73 square meters End Stage Renal Disease: Less than 15 mL/min/1.73 square meters Globulin 3.4 G/dL Normal 1.5 - 3.8 G/dL AH ADM SS Glucose [Mass/Vol] 75 mg/dL Normal 70 - 110 mg/dL ADM SS Hematocrit (Bld) [Volume fraction] 36.4 % Normal 34.0 - 46.0 % AH Workflow SS Hemoglobin (Bld) [Mass/Vol] 11.5 G/dL Low 12.0 - 16.0 G/dL AH Workflow SS Lymphocytes (Bld) [#/Vol] 3.1 103/mcL Normal 0.9 - 4.3 10^3/mcL AH Workflow SS Lymphocytes/100 WBC (Bld) 39.9 % Normal 20.0 - 40.0 % AH Workflow SS MCH (RBC) [Entitic mass] 24.4 pg Low 27.0 - 33.0 pg AH Workflow SS MCHC 31.6 G/dL Low 32.0 - 36.0 G/dL AH Workflow SS MCV (RBC) [Entitic vol] 77.3 fL Low 80.0 - 99.0 fL AH Workflow SS Monocytes (Bld) [#/Vol] 0.7 103/mcL Normal 0.1 - 1.4 10^3/mcL AH Workflow SS Monocytes/100 WBC (Bld) 9.2 % Normal 2.0 - 13.0 % AH Workflow SS Neutrophils (Bld) [#/Vol] 3.9 103/mcL Normal 2.3 - 8.1 10^3/mcL AH Workflow SS Neutrophils/100 WBC (Bld) 50.5 % Normal 50.0 - 75.0 % AH Workflow SS Platelet mean volume (Bld) [Entitic vol] 7.9 fL Normal 6.6 - 10.5 fL AH Workflow SS Platelets (Bld) [#/Vol] 321 103/mcL Normal 150 - 450 10^3/mcL AH Workflow SS Potassium [Moles/Vol] 3.2 mmol/L Low 3.5 - 5.0 mEq/L AH ADM SS Protein [Mass/Vol] 6.7 G/dL Normal 5.7 - 8.2 G/dL AH ADM SS Comment on above: Interpretive Data: * *Note - New Reference Range in effect 20 RBC (Bld) [#/Vol] 4.71 106/mcL Normal 4.10 - 5.3 0 10^6/mcL AH Workflow SS Sodium [Moles/Vol] 142 mmol/L Normal 136 - 145 mEq/L AH ADM SS Urea nitrogen [Mass/Vol] 5.0 mg/dL Low 8.0 - 22.0 mg/dL AH ADM SS Urea nitrogen/Creatinine [Mass ratio] 6.2 ratio Low 10.0 - 22.0 ratio AH ADM SS WBC (Bld) [#/Vol] 7.7 103/mcL Normal 4.5 - 10.8 10^3/mcL AH Workflow SS .Auto Diffon 05-14-2024 Basophil, Absolute 0.0 10 3/mcL Normal 0.0-0.3 [facility] ([place]) Comment on above: Performed By: #### A VISHAL, HEPAC, CBC, ADIFF, GFR, MG, CMP #### [facility] [address] [place] [address] Basophils/100 WBC (Bld) 0.2 % Normal 0.0-2.5 A [facility] ([place]) Comment on above: Performed By: #### A VISHAL, HEPAC, CBC, ADIFF, GFR, MG, CMP #### [address] [address] Eosinophil, Absolute 0.0 10 3/mcL Normal 0.0-0.7 [facility] ([place]) Comment on above: Performed By: #### A VISHAL, HEPAC, CBC, ADIFF, GFR, MG, CMP #### [address] [address] Eosinophils/100 WBC (Bld) 0.0 % Normal 0.0-6.0 Counts Include [address] At [facility] ([place]) Comment on above: Performed By: #### A VISHAL, HEPAC, CBC, ADIFF, GFR, MG, CMP #### [address] [address] Lymphocyte, Absolute 2.4 10 3/mcL Normal 0.9-4.3 [facility] ([place]) Comment on above: Performed By: #### A VISHAL, HEPAC, CBC, ADIFF, GFR, MG, CMP #### [address] [address] Lymphocytes/100 WBC (Bld) 27.9 % Normal 20.0-40.0 Counts Include [address] ([place]) Comment on above: Performed By: #### A VISHAL, HEPAC, CBC, ADIFF, GFR, MG, CMP #### [address] [address] Monocyte, Absolute 0.7 10 3/mcL Normal 0.1-1.4 [facility] ([place]) Comment on above: Performed By: #### A VISHAL, HEPAC, CBC, ADIFF, GFR, MG, CMP #### [address] [address] Monocytes/100 WBC (Bld) 8.0 % Normal 2.0-13.0 [facility] ([place]) Comment on above: Performed By: #### A VISHAL, HEPAC, CBC, ADIFF, GFR, MG, CMP #### [address] [address] Neutrophils/100 WBC (Bld) 63.9 % Normal 50.0-75.0 Counts Include [address] [facility] ([place]) Comment on above: Performed By: #### A VISHAL, HEPAC, CBC, ADIFF, GFR, MG, CMP #### [address] [address] .GFRon 05-14-2024 GFR >60 Normal [facility] ([place]) Comment on above: Result Comment: GFR Population mean for , Non- Americans Ages 20-29 = 116 mL/min/1.73 sq.m. Ages 30-39 = 107 mL/min/1.73 sq.m. Ages 40-49 = 99 mL/min/1.73 sq.m. Ages 50-59 = 93 mL/min/1.73 sq.m. Ages 60-69 = 85 mL/min/1.73 sq.m. Ages 70+ = 75 mL/min/1.73 sq.m. Chronic Kidney Disease: Less than 60 mL/min/1.73 square meters End Stage Renal Disease: Less than 15 mL/min/1.73 square meters Performed By: #### A VISHAL, HEPAC, CBC, ADIFF, GFR, MG, CMP #### [address] [address] GFR Non- >60 Normal Counts Include [address] [facility] ([place]) Comment on above: Result Comment: GFR Population mean for , Non- Americans Ages 20-29 = 116 mL/min/1.73 sq.m. Ages 30-39 = 107 mL/min/1.73 sq.m. Ages 40-49 = 99 mL/min/1.73 sq.m. Ages 50-59 = 93 mL/min/1.73 sq.m. Ages 60-69 = 85 mL/min/1.73 sq.m. Ages 70+ = 75 mL/min/1.73 sq.m. Chronic Kidney Disease: Less than 60 mL/min/1.73 square meters End Stage Renal Disease: Less than 15 mL/min/1.73 square meters Performed By: #### A VISHAL, HEPAC, CBC, ADIFF, GFR, MG, CMP #### [address] [address] .NEUABSon 05-14-2024 Neutrophil, Absolute 5.4 10 3/mcL Normal 2.3-8.1 [facility] ([place]) Comment on above: Performed By: #### A VISHAL, HEPAC, CBC, ADIFF, GFR, MG, CMP #### [address] [address] BMPon 05-14-2024 BUN/Creatinine Ratio 8.5 ratio Low 10.0-22.0 [facility] ([place]) Comment on above: Performed By: #### A VISHAL, HEPAC, CBC, ADIFF, GFR, MG, CMP #### [address] [address] Calcium [Mass/Vol] 8.4 mg/dL Low 8.7-10.4 [facility] ([place]) Comment on above: Performed By: #### A VISHAL, HEPAC, CBC, ADIFF, GFR, MG, CMP #### [address] [address] Chloride [Moles/Vol] 106 mmol/L Normal 98-110 [facility] ([place]) Comment on above: Performed By: #### A VISHAL, HEPAC, CBC, ADIFF, GFR, MG, CMP #### [address] [address] CO2 [Moles/Vol] 28 mmol/L Normal 22-32 Counts Include [address] [facility] ([place]) Comment on above: Performed By: #### A VISHAL, HEPAC, CBC, ADIFF, GFR, MG, CMP #### [address] [address] Creatinine [Mass/Vol] 0.71 mg/dL Normal 0.50-1.20 [facility] ([place]) Comment on above: Performed By: #### A VISHAL, HEPAC, CBC, ADIFF, GFR, MG, CMP #### [address] [address] Electrolyte Balance 7.0 mEq/L Normal 4.0-15.0 [facility] ([place]) Comment on above: Performed By: #### A VISHAL, HEPAC, CBC, ADIFF, GFR, MG, CMP #### [address] [address] Glucose [Mass/Vol] 100 mg/dL Normal 70-110 [facility] ([place]) Comment on above: Performed By: #### A VISHAL, HEPAC, CBC, ADIFF, GFR, MG, CMP #### [place] [id number] Potassium [Moles/Vol] 3.6 mmol/L Normal 3.5-5.0 [facility] ([place]) Comment on above: Performed By: #### A VISHAL, HEPAC, CBC, ADIFF, GFR, MG, CMP #### [place] [id number] Sodium [Moles/Vol] 141 mmol/L Normal 136-145 [facility] ([place]) Comment on above: Performed By: #### A VISHAL, HEPAC, CBC, ADIFF, GFR, MG, CMP #### [place] [id number] Urea nitrogen [Mass/Vol] 6.0 mg/dL Low 8.0-22.0 Counts Include [address] At [facility] ([place]) Comment on above: Performed By: #### A VISHAL, HEPAC, CBC, ADIFF, GFR, MG, CMP #### [address] [address] CBCon 05-14-2024 Erythrocyte distribution width (RBC) [Ratio] 16.4 % High 11.5-15.5 Counts Include [address] At [facility] ([place]) Comment on above: Performed By: #### A VISHAL, HEPAC, CBC, ADIFF, GFR, MG, CMP #### [place] [id number] Hematocrit (Bld) [Volume fraction] 34.0 % Normal 34.0-46.0 Counts Include [address] At [facility] ([place] Comment on above: Performed By: #### A VISHAL, HEPAC, CBC, ADIFF, GFR, MG, CMP #### [place] [id number] Hgb 11.0 G/dL Low 12.0-16.0 Counts Include [address] At [facility] ([place] Comment on above: Performed By: #### A VISHAL, HEPAC, CBC, ADIFF, GFR, MG, CMP #### [place] [id number] MCH (RBC) [Entitic mass] 24.9 pg Low 27.0-33.0 Counts Include 234 [address] At [facility] ([place]) Comment on above: Performed By: #### A VISHAL, HEPAC, CBC, ADIFF, GFR, MG, CMP #### [place] [id number] MCHC 32.4 G/dL Normal 32.0-36.0 Counts Include [address] At [facility] ([place] Comment on above: Performed By: #### A VISHAL, HEPAC, CBC, ADIFF, GFR, MG, CMP #### [place] [address] MCV (RBC) [Entitic vol] 76.7 fL Low 80.0-99.0 A [facility] ([place]) Comment on above: Performed By: #### A VISHAL, HEPAC, CBC, ADIFF, GFR, MG, CMP #### [place] [address] Platelet 321 10 3/mcL Normal 150-450 Counts Include 234 B[facility] At [facility] ([place]) Comment on above: Performed By: #### A VISHAL, HEPAC, CBC, ADIFF, GFR, MG, CMP #### [place] [address] Platelet mean volume (Bld) [Entitic vol] 7.9 fL Normal 6.6-10.5 Counts Include 234 [address] At [facility] ([place] Comment on above: Performed By: #### A VISHAL, HEPAC, CBC, ADIFF, GFR, MG, CMP #### [place] [address] RBC 4.42 10 6/mcL Normal 4.10-5.30 Counts Include 234 [facility] At [facility] ([place] Comment on above: Performed By: #### A VISHAL, HEPAC, CBC, ADIFF, GFR, MG, CMP #### [place] [address] WBC 8.4 10 3/mcL Normal 4.5-10.8 Counts Include 234 [address] At [facility] ([place]) Comment on above: Performed By: #### A VISHAL, HEPAC, CBC, ADIFF, GFR, MG, CMP #### [address] [address] HFPon 05-14-2024 Bili Indirect 0.4 mg/dL Normal 0.1-10.0 Counts Include [address] At [facility] ([place]) Comment on above: Performed By: #### A VISHAL, HEPAC, CBC, ADIFF, GFR, MG, CMP #### [place] [id number] Albumin Level 3.3 G/dL Normal 3.2-4.8 Counts Include [address] [facility] ([place]) Comment on above: Performed By: #### A VISHAL, HEPAC, CBC, ADIFF, GFR, MG, CMP #### [place] [id number] Albumin/Globulin [Mass ratio] 1.1 {ratio} Normal 0.9-1.6 Counts Include [address] At [facility] ([place] Comment on above: Performed By: #### A VISHAL, HEPAC, CBC, ADIFF, GFR, MG, CMP #### [place] [address] ALP [Catalytic activity/Vol] 101 U/L Normal 38-126 Counts Include 234 [address] [facility] ([place] Comment on above: Performed By: #### A VISHAL, HEPAC, CBC, ADIFF, GFR, MG, CMP #### [place] [id number] ALT [Catalytic activity/Vol] 113 U/L High 10-49 Counts Include 234 [address] ([place] Comment on above: Performed By: #### A VISHAL, HEPAC, CBC, ADIFF, GFR, MG, CMP #### [place] [id number] AST [Catalytic activity/Vol] 48 U/L High 8-34 Counts Include [address] [facility] ([place] Comment on above: Performed By: #### A VISHAL, HEPAC, CBC, ADIFF, GFR, MG, CMP #### [place] [address] Bili Direct 0.2 mg/dL Normal 0.0-0.4 Counts Include [address] At [facility] ([place]) Comment on above: Result Comment: Use of this assay is not recommended for patients undergoing treatment with eltrombopag due to the potential for falsely elevated results. Performed By: #### A VISHAL, HEPAC, CBC, ADIFF, GFR, MG, CMP #### [address] [address] Bili Total 0.60 mg/dL Normal 0.20-1.20 Counts Include [address] At [facility] ([place]) Comment on above: Result Comment: Use of this assay is not recommended for patients undergoing treatment with eltrombopag due to the potential for falsely elevated results. Performed By: #### A VISHAL, HEPAC, CBC, ADIFF, GFR, MG, CMP #### [place] [address] Globulin 3.1 G/dL Normal 1.5-3.8 Counts Include [address] At [facility] ([place] Comment on above: Performed By: #### A VISHAL, HEPAC, CBC, ADIFF, GFR, MG, CMP #### [place] [address] Total Protein 6.4 G/dL Normal 5.7-8.2 Counts Include [address] [facility] ([place]) Comment on above: Result Comment: No te - New Reference Range in effect 20 Performed By: #### A VISHAL, HEPAC, CBC, ADIFF, GFR, MG, CMP #### [place] [address] LABORATORYOrdered By: SYSTEM SYSTEM on 05-14-2024 Albumin BCP dye [Mass/Vol] 3.3 G/dL Normal 3.2 - 4.8 G/dL ADM SS Albumin/Globulin [Mass ratio] 1.1 {ratio} Normal 0.9 - 1.6 ratio AH ADM SS ALP [Catalytic activity/Vol] 101 U/L Normal 38 - 126 U/L ADM SS ALT No additional P-5'-P [Catalytic activity/Vol] 113 U/L High 10 - 49 U/L AH ADM SS AST [Catalytic activity/Vol] 48 U/L High 8 - 34 U/L AH ADM SS Basophils (Bld) [#/Vol] 0.0 103/mcL Normal 0.0 - 0.3 10^3/mcL AH Workflow SS Basophils/100 WBC (Bld) 0.2 % Normal 0.0 - 2.5 % Workflow SS Bili Indirect 0.4 mg/dL Normal 0.1 - 10.0 mg/dL Chemistry S Bilirubin [Mass/Vol] 0.60 mg/dL Normal 0.20 - 1.20 mg/dL ADM SS Comment on above: Interpretive Data: U se of this assay is not recommended for patients undergoing treatment with eltrombopag due to the potential for falsely elevated results. Bilirubin.conjugated [Mass/Vol] 0.2 mg/dL Normal 0.0 - 0.4 mg/dL ADM SS Comment on above: Interpretive Data: U se of this assay is not recommended for patients undergoing treatment with eltrombopag due to the potential for falsely elevated results. Calcium [Mass/Vol] 8.4 mg/dL Low 8.7 - 10. 4 mg/dL ADM SS Chloride [Moles/Vol] 106 mmol/L Normal 98 - 11 0 mEq/L ADM SS CO2 [Moles/Vol] 28 mmol/L Normal 22 - 32 mEq/L ADM SS Creatinine [Mass/Vol] 0.71 mg/dL Normal 0.50 - 1.20 mg/dL ADM SS Electrolyte Balance 7.0 mEq/L Normal 4.0 - 15 .0 mEq/L ADM SS Eosinophils (Bld) [#/Vol] 0.0 103/mcL Normal 0.0 - 0.7 10^3/mcL Workflow SS Eosinophils/100 WBC (Bld) 0.0 % Normal 0.0 - 6.0 % Workflow SS Erythrocyte distribution width (RBC) [Ratio] 16.4 % High 11.5 - 15.5 % Workflow SS GFR/1.73 sq M.predicted among blacks MDRD (S/P/Bld) [Vol rate/Area] ml/min/1.73sqm Invalid Interpretation Code Chemistry S Comment on above: Interpretive Data: GFR Population mean for , Non- Americans Ages 20-29 = 116 mL/min/1.73 sq.m. Ages 30-39 = 107 mL/min/1.73 sq.m. Ages 40-49 = 99 mL/min/1.73 sq.m. Ages 50-59 = 93 mL/min/1.73 sq.m. Ages 60-69 = 85 mL/min/1.73 sq.m. Ages 70+ = 75 mL/min/1.73 sq.m. Chronic Kidney Disease: Less than 60 mL/min/1.73 square meters End Stage Renal Disease: Less than 15 mL/min/1.73 square meters GFR/1.73 sq M.predicted among non-blacks MDRD (S/P/Bld) [Vol rate/Area] ml/min/1.73sqm Invalid Interpretation Code Chemistry S Comment on above: Interpretive Data: GFR Population mean for , Non- Americans Ages 20-29 = 116 mL/min/1.73 sq.m. Ages 30-39 = 107 mL/min/1.73 sq.m. Ages 40-49 = 99 mL/min/1.73 sq.m. Ages 50-59 = 93 mL/min/1.73 sq.m. Ages 60-69 = 85 mL/min/1.73 sq.m. Ages 70+ = 75 mL/min/1.73 sq.m. Chronic Kidney Disease: Less than 60 mL/min/1.73 square meters End Stage Renal Disease: Less than 15 mL/min/1.73 square meters Globulin 3.1 G/dL Normal 1.5 - 3.8 G/dL AH ADM SS Glucose [Mass/Vol] 100 mg/dL Normal 70 - 110 mg/dL ADM SS Hematocrit (Bld) [Volume fraction] 34.0 % Normal 34.0 - 46.0 % AH Workflow SS Hemoglobin (Bld) [Mass/Vol] 11.0 G/dL Low 12.0 - 16.0 G/dL AH Workflow SS Lymphocytes (Bld) [#/Vol] 2.4 103/mcL Normal 0.9 - 4.3 10^3/mcL AH Workflow SS Lymphocytes/100 WBC (Bld) 27.9 % Normal 20.0 - 40.0 % AH Workflow SS MCH (RBC) [Entitic mass] 24.9 pg Low 27.0 - 33.0 pg AH Workflow SS MCHC 32.4 G/dL Normal 32.0 - 36.0 G/dL AH Workflow SS MCV (RBC) [Entitic vol] 76.7 fL Low 80.0 - 99.0 fL AH Workflow SS Monocytes (Bld) [#/Vol] 0.7 103/mcL Normal 0.1 - 1.4 10^3/mcL AH Workflow SS Monocytes/100 WBC (Bld) 8.0 % Normal 2.0 - 13.0 % AH Workflow SS Neutrophils (Bld) [#/Vol] 5.4 103/mcL Normal 2.3 - 8.1 10^3/mcL AH Workflow SS Neutrophils/100 WBC (Bld) 63.9 % Normal 50.0 - 75.0 % AH Workflow SS Platelet mean volume (Bld) [Entitic vol] 7.9 fL Normal 6.6 - 10.5 fL AH Workflow SS Platelets (Bld) [#/Vol] 321 103/mcL Normal 150 - 450 10^3/mcL AH Workflow SS Protein [Mass/Vol] 6.4 G/dL Normal 5.7 - 8.2 G/dL AH ADM SS Comment on above: Interpretive Data: * *Note - New Reference Range in effect 20 RBC (Bld) [#/Vol] 4.42 106/mcL Normal 4.10 - 5.3 0 10^6/mcL AH Workflow SS Sodium [Moles/Vol] 141 mmol/L Normal 136 - 145 mEq/L AH ADM SS Urea nitrogen [Mass/Vol] 6.0 mg/dL Low 8.0 - 22.0 mg/dL AH ADM SS Urea nitrogen/Creatinine [Mass ratio] 8.5 ratio Low 10.0 - 22.0 ratio AH ADM SS WBC (Bld) [#/Vol] 8.4 103/mcL Normal 4.5 - 10.8 10^3/mcL AH Workflow SS .Auto Diffon 05-13-2024 Basophil, Absolute 0.0 10 3/mcL Normal 0.0-0.3 [facility] ([place]) Comment on above: Performed By: #### A VISHAL, HEPAC, CBC, ADIFF, GFR, MG, CMP #### [address] [address] Basophils/100 WBC (Bld) 0.2 % Normal 0.0-2.5 A [facility] ([place]) Comment on above: Performed By: #### A VISHAL, HEPAC, CBC, ADIFF, GFR, MG, CMP #### [address] [address] Eosinophil, Absolute 0.0 10 3/mcL Normal 0.0-0.7 [facility] ([place]) Comment on above: Performed By: #### A VISHAL, HEPAC, CBC, ADIFF, GFR, MG, CMP #### [address] [address] Eosinophils/100 WBC (Bld) 0.0 % Normal 0.0-6.0 Counts Include 234 B[facility] At [facility] ([place]) Comment on above: Performed By: #### A VISHAL, HEPAC, CBC, ADIFF, GFR, MG, CMP #### [address] [address] Lymphocyte, Absolute 3.0 10 3/mcL Normal 0.9-4.3 [facility] ([place]) Comment on above: Performed By: #### A VISHAL, HEPAC, CBC, ADIFF, GFR, MG, CMP #### [address] [address] Lymphocytes/100 WBC (Bld) 35.8 % Normal 20.0-40.0 Counts Include 234 [facility] At [facility] ([place]) Comment on above: Performed By: #### A VISHAL, HEPAC, CBC, ADIFF, GFR, MG, CMP #### [address] [address] Monocyte, Absolute 0.7 10 3/mcL Normal 0.1-1.4 [facility] ([place]) Comment on above: Performed By: #### A VISHAL, HEPAC, CBC, ADIFF, GFR, MG, CMP #### [address] [address] Monocytes/100 WBC (Bld) 8.1 % Normal 2.0-13.0 [facility] ([place]) Comment on above: Performed By: #### A VISHAL, HEPAC, CBC, ADIFF, GFR, MG, CMP #### [address] [address] Neutrophils/100 WBC (Bld) 55.9 % Normal 50.0-75.0 Counts Include [address] At [facility] ([place]) Comment on above: Performed By: #### A VISHAL, HEPAC, CBC, ADIFF, GFR, MG, CMP #### [address] [address] .GFRon 05-13-2024 GFR >60 Normal [facility] ([place]) Comment on above: Result Comment: GFR Population mean for , Non- Americans Ages 20-29 = 116 mL/min/1.73 sq.m. Ages 30-39 = 107 mL/min/1.73 sq.m. Ages 40-49 = 99 mL/min/1.73 sq.m. Ages 50-59 = 93 mL/min/1.73 sq.m. Ages 60-69 = 85 mL/min/1.73 sq.m. Ages 70+ = 75 mL/min/1.73 sq.m. Chronic Kidney Disease: Less than 60 mL/min/1.73 square meters End Stage Renal Disease: Less than 15 mL/min/1.73 square meters Performed By: #### A VISHAL, HEPAC, CBC, ADIFF, GFR, MG, CMP #### [address] [address] GFR Non- >60 Normal Counts Include [address] [facility] At [facility] ([place]) Comment on above: Result Comment: GFR Population mean for , Non- Americans Ages 20-29 = 116 mL/min/1.73 sq.m. Ages 30-39 = 107 mL/min/1.73 sq.m. Ages 40-49 = 99 mL/min/1.73 sq.m. Ages 50-59 = 93 mL/min/1.73 sq.m. Ages 60-69 = 85 mL/min/1.73 sq.m. Ages 70+ = 75 mL/min/1.73 sq.m. Chronic Kidney Disease: Less than 60 mL/min/1.73 square meters End Stage Renal Disease: Less than 15 mL/min/1.73 square meters Performed By: #### A VISHAL, HEPAC, CBC, ADIFF, GFR, MG, CMP #### [address] [address] .NEUABSon 05-13-2024 Neutrophil, Absolute 4.7 10 3/mcL Normal 2.3-8.1 [facility]ly [facility] ([place]) Comment on above: Performed By: #### A VISHAL, HEPAC, CBC, ADIFF, GFR, MG, CMP #### [address] [address] CBCon 05-13-2024 Erythrocyte distribution width (RBC) [Ratio] 16.4 % High 11.5-15.5 Counts Include [address] [facility] ([place]) Comment on above: Performed By: #### A VISHAL, HEPAC, CBC, ADIFF, GFR, MG, CMP #### [place] [address] Hematocrit (Bld) [Volume fraction] 32.6 % Low 34.0-46.0 Counts Include [address] [facility] ([place] Comment on above: Performed By: #### A VISHAL, HEPAC, CBC, ADIFF, GFR, MG, CMP #### [place] [address] Hgb 10.5 G/dL Low 12.0-16.0 Counts Include [address] [facility] ([place] Comment on above: Performed By: #### A VISHAL, HEPAC, CBC, ADIFF, GFR, MG, CMP #### [place] [address] MCH (RBC) [Entitic mass] 24.8 pg Low 27.0-33.0 Counts Include [facility] ([place] Comment on above: Performed By: #### A VISHAL, HEPAC, CBC, ADIFF, GFR, MG, CMP #### [place] [address] MCHC 32.3 G/dL Normal 32.0-36.0 Counts Include [facility] ([place] Comment on above: Performed By: #### A VISHAL, HEPAC, CBC, ADIFF, GFR, MG, CMP #### [place] [address] MCV (RBC) [Entitic vol] 76.7 fL Low 80.0-99.0 [facility] ([place]) Comment on above: Performed By: #### A VISHAL, HEPAC, CBC, ADIFF, GFR, MG, CMP #### [place] [address] Platelet 283 10 3/mcL Normal 150-450 Counts Include [facility] ([place] Comment on above: Performed By: #### A VISHAL, HEPAC, CBC, ADIFF, GFR, MG, CMP #### [place] [id number] Platelet mean volume (Bld) [Entitic vol] 7.7 fL Normal 6.6-10.5 Counts Include [address] [facility] ([place] Comment on above: Performed By: #### A VISHAL, HEPAC, CBC, ADIFF, GFR, MG, CMP #### [place] [address] RBC 4.24 10 6/mcL Normal 4.10-5.30 Counts Include [facility] ([place] Comment on above: Performed By: #### A VISHAL, HEPAC, CBC, ADIFF, GFR, MG, CMP #### [place] [id number] WBC 8.5 10 3/mcL Normal 4.5-10.8 Counts Include [address] [facility] ([place] Comment on above: Performed By: #### A VISHAL, HEPAC, CBC, ADIFF, GFR, MG, CMP #### [place] [address] CMPon 05-13-2024 Albumin Level 2.9 G/dL Low 3.2-4.8 Counts Include [address] [facility] ([place] Comment on above: Performed By: #### A VISHAL, HEPAC, CBC, ADIFF, GFR, MG, CMP #### [place] [address] Albumin/Globulin [Mass ratio] 1.0 {ratio} Normal 0.9-1.6 Counts Include [facility] ([place] Comment on above: Performed By: #### A VISHAL, HEPAC, CBC, ADIFF, GFR, MG, CMP #### [place] [address] ALP [Catalytic activity/Vol] 96 U/L Normal 38-126 Counts Include [facility] ([place] Comment on above: Performed By: #### A VISHAL, HEPAC, CBC, ADIFF, GFR, MG, CMP #### [place] [address] ALT [Catalytic activity/Vol] 115 U/L High 10-49 Counts Include [address] [facility] ([place] Comment on above: Performed By: #### A VISHAL, HEPAC, CBC, ADIFF, GFR, MG, CMP #### [address] [address] AST [Catalytic activity/Vol] 47 U/L High 8-34 Counts Include [address] [facility] ([place] Comment on above: Performed By: #### A VISHAL, HEPAC, CBC, ADIFF, GFR, MG, CMP #### [address] [address] Bili Total 0.70 mg/dL Normal 0.20-1.20 Counts Include [address] [facility] ([place] Comment on above: Result Comment: Use of this assay is not recommended for patients undergoing treatment with eltrombopag due to the potential for falsely elevated results. Performed By: #### A VISHAL, HEPAC, CBC, ADIFF, GFR, MG, CMP #### [place] [id number] BUN/Creatinine Ratio 11.3 ratio Normal 10.0-22.0 [facility] ([place]) Comment on above: Performed By: #### A VISHAL, HEPAC, CBC, ADIFF, GFR, MG, CMP #### [address] [address] Calcium [Mass/Vol] 8.6 mg/dL Low 8.7-10.4 [facility] ([place]) Comment on above: Performed By: #### A VISHAL, HEPAC, CBC, ADIFF, GFR, MG, CMP #### [address] [address] Chloride [Moles/Vol] 108 mmol/L Normal 98-110 [facility] ([place]) Comment on above: Performed By: #### A VISHAL, HEPAC, CBC, ADIFF, GFR, MG, CMP #### [address] [address] CO2 [Moles/Vol] 26 mmol/L Normal 22-32 Counts Include [address] [facility] ([place] Comment on above: Performed By: #### A VISHAL, HEPAC, CBC, ADIFF, GFR, MG, CMP #### [address] [address] Creatinine [Mass/Vol] 0.71 mg/dL Normal 0.50-1.20 [facility] ([place]) Comment on above: Performed By: #### A VISHAL, HEPAC, CBC, ADIFF, GFR, MG, CMP #### [address] [address] Electrolyte Balance 7.0 mEq/L Normal 4.0-15.0 [facility] ([place]) Comment on above: Performed By: #### A VISHAL, HEPAC, CBC, ADIFF, GFR, MG, CMP #### [address] [address] Globulin 3.0 G/dL Normal 1.5-3.8 Counts Include [address] [facility] ([place] Comment on above: Performed By: #### A VISHAL, HEPAC, CBC, ADIFF, GFR, MG, CMP #### [place] [id number] Glucose [Mass/Vol] 79 mg/dL Normal 70-110 [facility] ([place]) Comment on above: Performed By: #### A VISHAL, HEPAC, CBC, ADIFF, GFR, MG, CMP #### [place] [id number] Potassium [Moles/Vol] 3.6 mmol/L Normal 3.5-5.0 [facility] ([place] Comment on above: Performed By: #### A VISHAL, HEPAC, CBC, ADIFF, GFR, MG, CMP #### [address] [address] Sodium [Moles/Vol] 141 mmol/L Normal 136-145 [facility] ([place]) Comment on above: Performed By: #### A VISHAL, HEPAC, CBC, ADIFF, GFR, MG, CMP #### [place] [id number] Total Protein 5.9 G/dL Normal 5.7-8.2 Counts Include [address] [facility] ([place] Comment on above: Result Comment: No te - New Reference Range in effect 20 Performed By: #### A VISHAL, HEPAC, CBC, ADIFF, GFR, MG, CMP #### [place] [id number] Urea nitrogen [Mass/Vol] 8.0 mg/dL Normal 8.0-22.0 Counts Include [address] [facility] ([place] Comment on above: Performed By: #### A VISHAL, HEPAC, CBC, ADIFF, GFR, MG, CMP #### [place] [address] HEPACon 05-13-2024 Hep A IgM Ab Non-Reactive Normal Non-Reactive Counts Include [address] [facility] ([place] Comment on above: Performed By: #### A VISAHL, HEPAC, CBC, ADIFF, GFR, MG, CMP #### [place] [address] Hep A IgM Ab Int [facility] ([place]) Comment on above: Result Comment: No s erological evidence of a current Hepatitis A infection. See Interp Performed By: #### A VISHAL, HEPAC, CBC, ADIFF, GFR, MG, CMP #### [place] [address] Hep B Core IgM Ab Non-Reactive Normal Non-Reactive [facility] ([place] Comment on above: Performed By: #### A VISHAL, HEPAC, CBC, ADIFF, GFR, MG, CMP #### [place] [address] Hep B Core IgM Ab Int Normal [facility] ([place]) Comment on above: Result Comment: Samp les with a value < 0.80 Index are considered nonreactive (negative) for IgM antibodies to hepatitis B core antigen. See Interp Performed By: #### A VISHAL, HEPAC, CBC, ADIFF, GFR, MG, CMP #### [place] [address] Hep C Ab Non-Reactive Normal Non-Reactive Counts Include [address] [facility] ([place] Comment on above: Performed By: #### A VISHAL, HEPAC, CBC, ADIFF, GFR, MG, CMP #### [place] [address] Hep C Ab Int [facility] ([place]) Comment on above: Result Comment: Nonr eactive: Samples with a value < 0.80 are considered nonreactive (negative) for antibodies to HCV. A negative test result does not exclude the possibility of exposure to or infection with HCV. HCV antibodies may be undetectable in some stages of the infection and in some clinical conditions. See Interp Performed By: #### A VISHAL, HEPAC, CBC, ADIFF, GFR, MG, CMP #### [place] [address] Hep B Surf Ag Non-Reactive Normal Non-Reactive Counts Include [address] [facility] ([place] Comment on above: Performed By: #### A VISHAL, HEPAC, CBC, ADIFF, GFR, MG, CMP #### [place] [address] LABORATORYOrdered By: Haylie hooker on 05-13-2024 HAV IgM IA Ql Non-Reactive (05/13/24 6:07 AM) Normal Non-Reactive AH ADM SS HAV IgM IA Ql No serological evide nce of a current Hepatitis A infection. Invalid Interpretation Code AH Chemistry S HBV core IgM IA Ql Non-Reactive (05/13/24 6:07 AM) Normal Non-Reactive AH ADM SS HBV core IgM IA Ql Samples with a value < 0.80 Index are considered nonreactive (negative) for IgM antibodies to hepatitis B core antigen. Normal AH Chemistry S HCV Ab IA Ql Non-Reactive (05/13/24 6:07 AM) Normal Non-Reactive AH ADM SS HCV Ab IA Ql Nonreactive: Samples with a value < 0.80 are considered nonreactive (negative) for antibodies to HCV.A negative test result does not exclude the possibility of exposure to or infection with HCV. HCV antibodies may be undetectable in some stages of the infection and in some clinical conditions. Invalid Interpretation Code AH Chemistry S LABORATORYOrdered By: SYSTEM SYSTEM on 05-13-2024 HBV surface Ag IA Ql Non-Reactive (05/13/24 6:07 AM) Normal Non-Reactive AH ADM SS Magnesium [Mass/Vol] 1.9 mg/dL Normal 1.6 - 2 .4 mg/dL AH ADM SS MGon 05-13-2024 Magnesium [Mass/Vol] 1.9 mg/dL Normal 1.6-2.4 [facility] ([place]) Comment on above: Performed By: #### A VISHAL, HEPAC, CBC, ADIFF, GFR, MG, CMP #### [place] [address] US ABDOMEN LIMITEDon 024 US ABDOMEN LIMITED ORIGINAL EXAMINATION: RIGHT UPPER QUADRANT ULTRASOUND 05/13/2024 2:38 pm COMPARISON: CT abdomen and pelvis 05/11/2024 HISTORY: ORDERING SYSTEM PROVIDED HISTORY: Reason for Exam: Elevated LFTs, RUQ abdominal pain FINDINGS: LIVER: The liver demonstrates diffuse increased echogenicity without evidence of intrahepatic biliary ductal dilatation. Masking of the portal triads is noted. BILIARY SYSTEM: Gallbladder surgically absent. Common bile duct is within normal limits measuring 5.8 mm. RIGHT KIDNEY: The right kidney is grossly unremarkable without evidence of hydronephrosis. Kidney shows normal cortical thickness and echotexture measuring 10.2 x 4.2 cm. PANCREAS: Pancreas is poorly visualized. There is tenderness encountered on direct examination over the pancreas. OTHER: No evidence of right upper quadrant ascites. IMPRESSION: 1. Diffuse fatty infiltration of the liver. 2. Tenderness on direct examination over the pancreas. Interpreted by: Werner Lambert DO Preliminary Report By: Werner Lambert DO Electronically signed By Werner Lambert DO Dictated Date: 05/13/2024 2:49:54 PM Prelim Date: 05/13/2024 2:52:24 PM Sign Date: 05/13/2024 2:52:24 PM Ordering Provider: LEATHA Barr Counts Include [address] [facility] ([place]) .Auto Diffon 05-12-2024 Basophil, Absolute 0.0 10 3/mcL Normal 0.0-0.3 [facility] ([place]) Comment on above: Performed By: #### A VISHAL, HEPAC, CBC, ADIFF, GFR, MG, CMP #### [address] [address] Basophils/100 WBC (Bld) 0.1 % Normal 0.0-2.5 A [facility] ([place]) Comment on above: Performed By: #### A VISHAL, HEPAC, CBC, ADIFF, GFR, MG, CMP #### [address] [address] Eosinophil, Absolute 0.0 10 3/mcL Normal 0.0-0.7 [facility]ly [facility] ([place]) Comment on above: Performed By: #### A VISHAL, HEPAC, CBC, ADIFF, GFR, MG, CMP #### [address] [address] Eosinophils/100 WBC (Bld) 0.0 % Normal 0.0-6.0 Counts Include [address] [facility] ([place] Comment on above: Performed By: #### A VISHAL, HEPAC, CBC, ADIFF, GFR, MG, CMP #### [address] [address] Lymphocyte, Absolute 1.4 10 3/mcL Normal 0.9-4.3 [facility] ([place] Comment on above: Performed By: #### A VISHAL, HEPAC, CBC, ADIFF, GFR, MG, CMP #### [address] [address] Lymphocytes/100 WBC (Bld) 17.4 % Low 20.0-40.0 Counts Include [address] [facility] ([place] Comment on above: Performed By: #### A VISHAL, HEPAC, CBC, ADIFF, GFR, MG, CMP #### [address] [address] Monocyte, Absolute 0.3 10 3/mcL Normal 0.1-1.4 [facility] ([place] Comment on above: Performed By: #### A VISHAL, HEPAC, CBC, ADIFF, GFR, MG, CMP #### [address] [address] Monocytes/100 WBC (Bld) 4.2 % Normal 2.0-13.0 A [facility] ([place] Comment on above: Performed By: #### A VISHAL, HEPAC, CBC, ADIFF, GFR, MG, CMP #### [address] [address] Neutrophils/100 WBC (Bld) 78.3 % High 50.0-75.0 Counts Include [address] [facility] ([place] Comment on above: Performed By: #### A VISHAL, HEPAC, CBC, ADIFF, GFR, MG, CMP #### [address] [address] .GFRon 05-12-2024 GFR >60 Normal [facility] ([place]) Comment on above: Result Comment: GFR Population mean for , Non- Americans Ages 20-29 = 116 mL/min/1.73 sq.m. Ages 30-39 = 107 mL/min/1.73 sq.m. Ages 40-49 = 99 mL/min/1.73 sq.m. Ages 50-59 = 93 mL/min/1.73 sq.m. Ages 60-69 = 85 mL/min/1.73 sq.m. Ages 70+ = 75 mL/min/1.73 sq.m. Chronic Kidney Disease: Less than 60 mL/min/1.73 square meters End Stage Renal Disease: Less than 15 mL/min/1.73 square meters Performed By: #### A VISHAL, HEPAC, CBC, ADIFF, GFR, MG, CMP #### [address] [address] GFR Non- >60 Normal Counts Include [address] [facility] ([place] Comment on above: Result Comment: GFR Population mean for , Non- Americans Ages 20-29 = 116 mL/min/1.73 sq.m. Ages 30-39 = 107 mL/min/1.73 sq.m. Ages 40-49 = 99 mL/min/1.73 sq.m. Ages 50-59 = 93 mL/min/1.73 sq.m. Ages 60-69 = 85 mL/min/1.73 sq.m. Ages 70+ = 75 mL/min/1.73 sq.m. Chronic Kidney Disease: Less than 60 mL/min/1.73 square meters End Stage Renal Disease: Less than 15 mL/min/1.73 square meters Performed By: #### A VISHAL, HEPAC, CBC, ADIFF, GFR, MG, CMP #### [address] [address] .NEUABSon 05-12-2024 Neutrophil, Absolute 6.1 10 3/mcL Normal 2.3-8.1 [facility] ([place] Comment on above: Performed By: #### A VISHAL, HEPAC, CBC, ADIFF, GFR, MG, CMP #### [address] [address] CBCon 05-12-2024 Erythrocyte distribution width (RBC) [Ratio] 16.6 % High 11.5-15.5 Counts Include [address] [facility] ([place] Comment on above: Performed By: #### A VISHAL, HEPAC, CBC, ADIFF, GFR, MG, CMP #### [place] [address] Hematocrit (Bld) [Volume fraction] 36.4 % Normal 34.0-46.0 Counts Include [address] [facility] ([place] Comment on above: Performed By: #### A VISHAL, HEPAC, CBC, ADIFF, GFR, MG, CMP #### [place] [address] Hgb 11.6 G/dL Low 12.0-16.0 Counts Include [address] [facility] ([place] Comment on above: Performed By: #### A VISHAL, HEPAC, CBC, ADIFF, GFR, MG, CMP #### [place] [address] MCH (RBC) [Entitic mass] 24.4 pg Low 27.0-33.0 Counts Include [address] [facility] ([place] Comment on above: Performed By: #### A VISHAL, HEPAC, CBC, ADIFF, GFR, MG, CMP #### [place] [address] MCHC 31.9 G/dL Low 32.0-36.0 Counts Include [address] [facility] ([place] Comment on above: Performed By: #### A VISHAL, HEPAC, CBC, ADIFF, GFR, MG, CMP #### [place] [address] MCV (RBC) [Entitic vol] 76.5 fL Low 80.0-99.0 [facility] ([place] Comment on above: Performed By: #### A VISHAL, HEPAC, CBC, ADIFF, GFR, MG, CMP #### [place] [id number] Platelet 314 10 3/mcL Normal 150-450 Counts Include [address] [facility] ([place] Comment on above: Performed By: #### A VISHAL, HEPAC, CBC, ADIFF, GFR, MG, CMP #### [place] [address] Platelet mean volume (Bld) [Entitic vol] 8.0 fL Normal 6.6-10.5 Counts Include [address] [facility] ([place] Comment on above: Performed By: #### A VISHAL, HEPAC, CBC, ADIFF, GFR, MG, CMP #### [address] [address] RBC 4.76 10 6/mcL Normal 4.10-5.30 Counts Include [address] [facility] ([place] Comment on above: Performed By: #### A VISHAL, HEPAC, CBC, ADIFF, GFR, MG, CMP #### [place] [address] WBC 7.8 10 3/mcL Normal 4.5-10.8 Counts Include [address] [facility] ([place] Comment on above: Performed By: #### A VISHAL, HEPAC, CBC, ADIFF, GFR, MG, CMP #### [place] [address] CMPon 05-12-2024 Albumin Level 3.4 G/dL Normal 3.2-4.8 Counts Include [address] [facility] ([place] Comment on above: Performed By: #### A VISHAL, HEPAC, CBC, ADIFF, GFR, MG, CMP #### [place] [address] Albumin/Globulin [Mass ratio] 1.0 {ratio} Normal 0.9-1.6 Counts Include [address] [facility] ([place] Comment on above: Performed By: #### A VISHAL, HEPAC, CBC, ADIFF, GFR, MG, CMP #### [place] [address] ALP [Catalytic activity/Vol] 121 U/L Normal 38-126 Counts Include [address] [facility] ([place] Comment on above: Performed By: #### A VISHAL, HEPAC, CBC, ADIFF, GFR, MG, CMP #### [place] [address] ALT [Catalytic activity/Vol] 184 U/L High 10-49 Counts Include [address] [facility] ([place] Comment on above: Performed By: #### A VISHAL, HEPAC, CBC, ADIFF, GFR, MG, CMP #### [place] [id number] AST [Catalytic activity/Vol] 106 U/L High 8-34 Counts Include [address] [facility] ([place] Comment on above: Performed By: #### A VISHAL, HEPAC, CBC, ADIFF, GFR, MG, CMP #### [address] [address] Bili Total 1.10 mg/dL Normal 0.20-1.20 Counts Include [address] [facility] ([place] Comment on above: Result Comment: Use of this assay is not recommended for patients undergoing treatment with eltrombopag due to the potential for falsely elevated results. Performed By: #### A VISHAL, HEPAC, CBC, ADIFF, GFR, MG, CMP #### [address] [address] BUN/Creatinine Ratio 10.0 ratio Normal 10.0-22.0 [facility] ([place] Comment on above: Performed By: #### A VISHAL, HEPAC, CBC, ADIFF, GFR, MG, CMP #### [address] [address] Calcium [Mass/Vol] 8.5 mg/dL Low 8.7-10.4 [facility] ([place]) Comment on above: Performed By: #### A VISHAL, HEPAC, CBC, ADIFF, GFR, MG, CMP #### [address] [address] Chloride [Moles/Vol] 106 mmol/L Normal 98-110 [facility] ([place] Comment on above: Performed By: #### A VISHAL, HEPAC, CBC, ADIFF, GFR, MG, CMP #### [address] [address] CO2 [Moles/Vol] 27 mmol/L Normal 22-32 Counts Include [address] [facility] ([place] Comment on above: Performed By: #### A VISHAL, HEPAC, CBC, ADIFF, GFR, MG, CMP #### [address] [address] Creatinine [Mass/Vol] 0.70 mg/dL Normal 0.50-1.20 [facility] ([place]) Comment on above: Performed By: #### A VISHAL, HEPAC, CBC, ADIFF, GFR, MG, CMP #### [address] [address] Electrolyte Balance 5.0 mEq/L Normal 4.0-15.0 [facility] ([place]) Comment on above: Performed By: #### A VISHAL, HEPAC, CBC, ADIFF, GFR, MG, CMP #### [address] [address] Globulin 3.4 G/dL Normal 1.5-3.8 Counts Include [address] [facility] ([place] Comment on above: Performed By: #### A VISHAL, HEPAC, CBC, ADIFF, GFR, MG, CMP #### [address] [address] Glucose [Mass/Vol] 112 mg/dL High 70-110 [facility] ([place] Comment on above: Performed By: #### A VISHAL, HEPAC, CBC, ADIFF, GFR, MG, CMP #### [address] [address] Potassium [Moles/Vol] 4.3 mmol/L Normal 3.5-5.0 [facility] ([place] Comment on above: Performed By: #### A VISHAL, HEPAC, CBC, ADIFF, GFR, MG, CMP #### [address] [address] Sodium [Moles/Vol] 138 mmol/L Normal 136-145 [facility] ([place] Comment on above: Performed By: #### A VISHAL, HEPAC, CBC, ADIFF, GFR, MG, CMP #### [place] [id number] Total Protein 6.8 G/dL Normal 5.7-8.2 Counts Include [address] [facility] ([place] Comment on above: Result Comment: No te - New Reference Range in effect 20 Performed By: #### A VISHAL, HEPAC, CBC, ADIFF, GFR, MG, CMP #### [address] [address] Urea nitrogen [Mass/Vol] 7.0 mg/dL Low 8.0-22.0 Counts Include [address] [facility] ([place] Comment on above: Performed By: #### A VISHAL, HEPAC, CBC, ADIFF, GFR, MG, CMP #### [address] [address] CORTon 05-12-2024 Cortisol Level 131.4 mcg/dL Normal Counts Include [address] [facility] ([place] Comment on above: Result Comment: Dario isol AM Reference Range 6.5-26.0 mcg/dL Cortisol PM Reference Range 3.5-15.0 mcg/dL Performed By: #### A VISHAL, HEPAC, CBC, ADIFF, GFR, MG, CMP #### [place] [id number] [place] [address] HGBon 05-12-2024 Hgb 11.5 G/dL Low 12.0-16.0 Counts Include [address] [facility] ([place] Comment on above: Performed By: #### A VISHAL, HEPAC, CBC, ADIFF, GFR, MG, CMP #### [address] [address] LABORATORYOrdered By: SYSTEM SYSTEM on 05-12-2024 Cortisol [Mass/Vol] 131.4 ug/dL Invalid Interpretation Code AH ADM SS Comment on above: Interpretive Data: C ortisol AM Reference Range 6.5-26.0 mcg/dL Cortisol PM Reference Range 3.5-15.0 mcg/dL XR ENTERIC TUBE PLACEMENTon 05-12-2024 XR ENTERIC TUBE PLACEMENT ORIGINAL EXAMINATION: ONE SUPINE XRAY VIEW(S) OF THE ABDOMEN 05/12/2024 3:42 am COMPARISON: CT abdomen and pelvis May 11, 2024 HISTORY: ORDERING SYSTEM PROVIDED HISTORY: Reason for Exam: NG TUBE PLACEMENT FINDINGS: There is an enteric tube with the tip and side port projecting in the region of the proximal stomach. Retained oral contrast is seen within the colon. No disproportionately dilated loops of bowel. Supine technique limits the evaluation of air-fluid levels and free air. No acute osseous abnormality. Hazy airspace opacity throughout the majority of the right lung and at the left mid to lower lung. IMPRESSION: 1. Enteric tube terminates within the proximal stomach. 2. Hazy airspace opacities within the lungs bilaterally, greater on the right, may represent developing infiltrates versus superimposition of soft tissue. A two view chest radiograph should be performed when the patient's condition permits. Interpreted by: Fabrice Moreno MD Preliminary Report By: Fabrice Moreno MD Electronically signed By Fabrice Moreno MD Dictated Date: 05/12/2024 8:16:03 AM Prelim Date: 05/12/2024 8:21:28 AM Sign Date: 05/12/2024 8:21:28 AM Ordering Provider: SILAS Barr Counts Include [facility] ([place] .Auto Diffon 05-11-2024 Basophil, Absolute 0.0 10 3/mcL Normal 0.0-0.3 [facility] ([place] Comment on above: Performed By: #### A VISHAL, HEPAC, CBC, ADIFF, GFR, MG, CMP #### [address] [address] Basophils/100 WBC (Bld) 0.4 % Normal 0.0-2.5 A [facility] ([place] Comment on above: Performed By: #### A VISHAL, HEPAC, CBC, ADIFF, GFR, MG, CMP #### [address] [address] Eosinophil, Absolute 0.0 10 3/mcL Normal 0.0-0.7 [facility] ([place] Comment on above: Performed By: #### A VISHAL, HEPAC, CBC, ADIFF, GFR, MG, CMP #### [address] [address] Eosinophils/100 WBC (Bld) 0.0 % Normal 0.0-6.0 Counts Include [address] [facility] ([place] Comment on above: Performed By: #### A VISHAL, HEPAC, CBC, ADIFF, GFR, MG, CMP #### [address] [address] Lymphocyte, Absolute 1.4 10 3/mcL Normal 0.9-4.3 [facility] ([place] Comment on above: Performed By: #### A VISHAL, HEPAC, CBC, ADIFF, GFR, MG, CMP #### [address] [address] Lymphocytes/100 WBC (Bld) 17.2 % Low 20.0-40.0 Counts Include [address] [facility] ([place] Comment on above: Performed By: #### A VISHAL, HEPAC, CBC, ADIFF, GFR, MG, CMP #### [address] [address] Monocyte, Absolute 0.6 10 3/mcL Normal 0.1-1.4 [facility] ([place] Comment on above: Performed By: #### A VISHAL, HEPAC, CBC, ADIFF, GFR, MG, CMP #### [address] [address] Monocytes/100 WBC (Bld) 6.9 % Normal 2.0-13.0 A [facility] ([place] Comment on above: Performed By: #### A VISHAL, HEPAC, CBC, ADIFF, GFR, MG, CMP #### [address] [address] Neutrophils/100 WBC (Bld) 75.5 % High 50.0-75.0 Counts Include 234 Beds At [facility] ([place]) Comment on above: Performed By: #### A VISHAL, HEPAC, CBC, ADIFF, GFR, MG, CMP #### [address] [address] .GFRon 05-11-2024 GFR >60 Normal [facility] ([place]) Comment on above: Result Comment: GFR Population mean for , Non- Americans Ages 20-29 = 116 mL/min/1.73 sq.m. Ages 30-39 = 107 mL/min/1.73 sq.m. Ages 40-49 = 99 mL/min/1.73 sq.m. Ages 50-59 = 93 mL/min/1.73 sq.m. Ages 60-69 = 85 mL/min/1.73 sq.m. Ages 70+ = 75 mL/min/1.73 sq.m. Chronic Kidney Disease: Less than 60 mL/min/1.73 square meters End Stage Renal Disease: Less than 15 mL/min/1.73 square meters Performed By: #### A VISHAL, HEPAC, CBC, ADIFF, GFR, MG, CMP #### [address] [address] GFR Non- >60 Normal Counts Include [address] Beds At [facility] ([place]) Comment on above: Result Comment: GFR Population mean for , Non- Americans Ages 20-29 = 116 mL/min/1.73 sq.m. Ages 30-39 = 107 mL/min/1.73 sq.m. Ages 40-49 = 99 mL/min/1.73 sq.m. Ages 50-59 = 93 mL/min/1.73 sq.m. Ages 60-69 = 85 mL/min/1.73 sq.m. Ages 70+ = 75 mL/min/1.73 sq.m. Chronic Kidney Disease: Less than 60 mL/min/1.73 square meters End Stage Renal Disease: Less than 15 mL/min/1.73 square meters Performed By: #### A VISHAL, HEPAC, CBC, ADIFF, GFR, MG, CMP #### [place] [address] .MDWon 05-11-2024 Monocyte Distribution Width 19.75 Normal 0.00-20.00 Counts Include 234 Beds At [facility] ([place]) Comment on above: Result Comment: For ED adult patients suspected of sepsis, MDW<=20.0 does not rule out sepsis or risk of sepsis Performed By: #### A VISHAL, HEPAC, CBC, ADIFF, GFR, MG, CMP #### [place] [address] .NEUABSon 05-11-2024 Neutrophil, Absolute 6.3 10 3/mcL Normal 2.3-8.1 [facility] ([place]) Comment on above: Performed By: #### A VISHAL, HEPAC, CBC, ADIFF, GFR, MG, CMP #### [place] [address] CBCon 05-11-2024 Erythrocyte distribution width (RBC) [Ratio] 16.3 % High 11.5-15.5 Counts Include 234 Beds At [facility] ([place] Comment on above: Performed By: #### A VISHAL, HEPAC, CBC, ADIFF, GFR, MG, CMP #### [place] [address] Hematocrit (Bld) [Volume fraction] 38.3 % Normal 34.0-46.0 Counts Include 234 Beds At [facility] ([place] Comment on above: Performed By: #### A VISHAL, HEPAC, CBC, ADIFF, GFR, MG, CMP #### [place] [address] Hgb 12.3 G/dL Normal 12.0-16.0 Counts Include 234 Beds At [facility] ([place] Comment on above: Performed By: #### A VISHAL, HEPAC, CBC, ADIFF, GFR, MG, CMP #### [place] [address] MCH (RBC) [Entitic mass] 24.7 pg Low 27.0-33.0 Counts Include 234 Beds At [facility] ([place] Comment on above: Performed By: #### A VISHAL, HEPAC, CBC, ADIFF, GFR, MG, CMP #### [place] [address] MCHC 32.1 G/dL Normal 32.0-36.0 Counts Include 234 Beds At [facility] ([place] Comment on above: Performed By: #### A VISHAL, HEPAC, CBC, ADIFF, GFR, MG, CMP #### [place] [address] MCV (RBC) [Entitic vol] 76.9 fL Low 80.0-99.0 [facility] ([place]) Comment on above: Performed By: #### A VISHAL, HEPAC, CBC, ADIFF, GFR, MG, CMP #### [place] [address] Platelet 335 10 3/mcL Normal 150-450 Counts Include 234 Beds At [facility] ([place] Comment on above: Performed By: #### A VISHAL, HEPAC, CBC, ADIFF, GFR, MG, CMP #### [place] [address] Platelet mean volume (Bld) [Entitic vol] 8.2 fL Normal 6.6-10.5 Counts Include 234 Beds At [facility] ([place] Comment on above: Performed By: #### A VISHAL, HEPAC, CBC, ADIFF, GFR, MG, CMP #### [place] [address] RBC 4.99 10 6/mcL Normal 4.10-5.30 Counts Include 234 Beds At [facility] ([place] Comment on above: Performed By: #### A VISHAL, HEPAC, CBC, ADIFF, GFR, MG, CMP #### [address] [address] WBC 8.4 10 3/mcL Normal 4.5-10.8 Counts Include 234 Beds At [facility] ([place] Comment on above: Performed By: #### A VISHAL, HEPAC, CBC, ADIFF, GFR, MG, CMP #### [place] [id number] CMPon 05-11-2024 Albumin/Globulin [Mass ratio] 1.1 {ratio} Normal 0.9-1.6 Counts Include 234 Beds At [facility] ([place] Comment on above: Performed By: #### A VISHAL, HEPAC, CBC, ADIFF, GFR, MG, CMP #### [place] [address] Bili Total 1.40 mg/dL High 0.20-1.20 Counts Include 234 Beds At [facility] ([place]) Comment on above: Result Comment: Use of this assay is not recommended for patients undergoing treatment with eltrombopag due to the potential for falsely elevated results. Performed By: #### A VISHAL, HEPAC, CBC, ADIFF, GFR, MG, CMP #### [place] [address] Globulin 3.5 G/dL Normal 1.5-3.8 Counts Include 234 Beds At [facility] ([place] Comment on above: Performed By: #### A VISHAL, HEPAC, CBC, ADIFF, GFR, MG, CMP #### [place] [address] Total Protein 7.3 G/dL Normal 5.7-8.2 Counts Include 234 Beds At [facility] ([place]) Comment on above: Result Comment: No te - New Reference Range in effect 20 Performed By: #### A VISHAL, HEPAC, CBC, ADIFF, GFR, MG, CMP #### [place] [address] BUN/Creatinine Ratio Unable to Calculate Normal 10.0-2 2.0 Counts Include 234 Beds At [facility] ([place]) Comment on above: Result Comment: Unab le to calculate this test result accurately. Results used to calculate this test are outside the reportable range. Performed By: #### A VISHAL, HEPAC, CBC, ADIFF, GFR, MG, CMP #### [address] [address] Urea nitrogen [Mass/Vol] mg/dL Low 8.0-22.0 Counts Include 234 Beds At [facility] ([place] Comment on above: Performed By: #### A VISHAL, HEPAC, CBC, ADIFF, GFR, MG, CMP #### [address] [address] Albumin Level 3.8 G/dL Normal 3.2-4.8 Counts Include 234 Beds At [facility] ([place] Comment on above: Performed By: #### A VISHAL, HEPAC, CBC, ADIFF, GFR, MG, CMP #### [address] [address] ALP [Catalytic activity/Vol] 131 U/L High 38-126 Counts Include 234 Beds At [facility] ([place] Comment on above: Performed By: #### A VISHAL, HEPAC, CBC, ADIFF, GFR, MG, CMP #### [address] [address] ALT [Catalytic activity/Vol] 224 U/L High 10-49 Counts Include 234 Beds At [facility] ([place] Comment on above: Performed By: #### A VISHAL, HEPAC, CBC, ADIFF, GFR, MG, CMP #### [address] [address] AST [Catalytic activity/Vol] 157 U/L High 8-34 Counts Include 234 Beds At [facility] ([place] Comment on above: Performed By: #### A VISHAL, HEPAC, CBC, ADIFF, GFR, MG, CMP #### [address] [address] Calcium [Mass/Vol] 8.8 mg/dL Normal 8.7-10.4 [facility] ([place]) Comment on above: Performed By: #### A VISHAL, HEPAC, CBC, ADIFF, GFR, MG, CMP #### [address] [address] Chloride [Moles/Vol] 107 mmol/L Normal 98-110 [facility] ([place]) Comment on above: Performed By: #### A VISHAL, HEPAC, CBC, ADIFF, GFR, MG, CMP #### [address] [address] CO2 [Moles/Vol] 23 mmol/L Normal 22-32 Counts Include 234 Beds At [facility] ([place] Comment on above: Performed By: #### A VISHAL, HEPAC, CBC, ADIFF, GFR, MG, CMP #### [address] [address] Creatinine [Mass/Vol] 0.65 mg/dL Normal 0.50-1.20 [facility] ([place]) Comment on above: Performed By: #### A VISHAL, HEPAC, CBC, ADIFF, GFR, MG, CMP #### [place] [id number] Electrolyte Balance 8.0 mEq/L Normal 4.0-15.0 [facility] ([place]) Comment on above: Performed By: #### A VISHAL, HEPAC, CBC, ADIFF, GFR, MG, CMP #### [place] [address] Glucose [Mass/Vol] 112 mg/dL High 70-110 [facility] ([place]) Comment on above: Performed By: #### A VISHAL, HEPAC, CBC, ADIFF, GFR, MG, CMP #### [place] [address] Potassium [Moles/Vol] 3.6 mmol/L Normal 3.5-5.0 [facility] ([place]) Comment on above: Performed By: #### A VISHAL, HEPAC, CBC, ADIFF, GFR, MG, CMP #### [place] [id number] Sodium [Moles/Vol] 138 mmol/L Normal 136-145 [facility] ([place]) Comment on above: Performed By: #### A VISHAL, HEPAC, CBC, ADIFF, GFR, MG, CMP #### [place] [address] CORTon 05-11-2024 Cortisol Level 0.7 mcg/dL Normal Counts Include 234 Beds At [facility] ([place]) Comment on above: Result Comment: Dario isol AM Reference Range 6.5-26.0 mcg/dL Cortisol PM Reference Range 3.5-15.0 mcg/dL Performed By: #### C ORT, [facility] #### [place] [address] CT ABDOMEN/PELVIS W/CONTRAST on 05-11-2024 CT ABDOMEN/PELVIS W/CONTRAST ORIGINAL EXAMINATION: CT OF THE ABDOMEN AND PELVIS WITH CONTRAST05/11/2024 10:18 pm TECHNIQUE: CT of the abdomen and pelvis was performed with the administration of intravenous contrast. Multiplanar reformatted images are provided for review. Automated exposure control, iterative reconstruction, and/or weight based adjustment of the mA/kV was utilized to reduce the radiation dose to as low as reasonably achievable. COMPARISON: None HISTORY: ORDERING SYSTEM PROVIDED HISTORY: Reason for Exam: NAUSEA VOMITING WEAKNESS GENERAL ABD PAIN abdominal pain FINDINGS: Marked diffuse hypoattenuation of the liver, with some focal areas of hyperattenuation seen; these findings consistent with hepatic steatosis with fatty sparing. No suspicious hepatic lesions.There is no intra or extrahepatic biliary duct dilation.Surgically absent gallbladder. The pancreas, and bilateral adrenal glands are unremarkable. Calcified granulomas within the spleen. The kidneys enhance symmetrically.No hydronephrosis.No suspicious renal lesions. The urinary bladder is unremarkable within the confines of under distension. Surgically absent uterus. Left adnexal cyst up to 2.7 cm; no follow-up is required. No acute abnormality of the visualized GI tract.Nonvisualized appendix; no pericecal inflammation. No pathologically enlarged or aggressive appearing lymph nodes. Nonaneurysmal aortoiliac arteries. Circumaortic left renal vein. Small focus of infiltrative stranding of the anterior right abdominal wall subcutaneous adipose tissue. There is mild overlying skin thickening. Few foci of air are seen within. No drainable fluid collection. No acute osseous abnormality.No aggressive osseous lesions. No acute or suspicious abnormality within the partially visualized lower thorax.Bibasilar dependent atelectasis. Calcified granuloma at the left lung base. IMPRESSION: No acute intra-abdominal abnormality identified. Infiltrative stranding of the right anterior abdominal subcutaneous tissues with overlying skin thickening, probably injection site granuloma. Marked hepatic steatosis. I have personally reviewed the images of this examination and agree with the resident's findings and interpretation. Interpreted by: Roby Landaverde Preliminary Report By: Jono Perez Electronically signed By Roby Landaverde Dictated Date: 05/11/2024 10:21:18 PM Prelim Date: 05/11/2024 10:33:37 PM Sign Date: 05/11/2024 11:22:54 PM Ordering Provider: SILAS Barr Counts Include 234 Beds At [facility] ([place]) HBA1C (OUTSIDE)on 05-11-2024 HbA1c (Bld) [Mass fraction] 6.5 % [facility] LABORATORYOrdered By: SYSTEM SYSTEM on 05-11-2024 Cortisol [Mass/Vol] 0.7 ug/dL Invalid Interpretation Code [facility] Comment on above: Interpretive Data: C ortisol AM Reference Range 6.5-26.0 mcg/dL Cortisol PM Reference Range 3.5-15.0 mcg/dL TSH Qn 0.776 mIU/mL Normal 0.550 - 4.780 mIU/mL [facility] Comment on above: Interpretive Data: * *Note - New Reference Range in effect 20 Lipase [Catalytic activity/Vol] 31 U/L Normal 12 - 53 U/L [facility] Comment on above: Interpretive Data: * *Note - New Reference Range in effect 20 Magnesium [Mass/Vol] 1.9 mg/dL Normal 1.6 - 2 .4 mg/dL [facility] Monocyte distribution width Auto (Bld) [Entitic vol] 19.75 1 Normal 0.00 - 20.00 [facility] Comment on above: Result Comment: For ED adult patients suspected of sepsis, MDW<=20.0 does not rule out sepsis or risk of sepsis Troponin I.cardiac DL <= 0.01 ng/mL [Mass/Vol] ng/L Normal 0 - 34 ng/L [facility] Comment on above: Interpretive Data: High Sensitive Troponin I Reference Ranges: Female: 0-34 ng/L Male: 0-54 ng/L Testing performed on Bag Borrow or Steal analyzer using direct chemiluminescent technology. LIPon 05-11-2024 Lipase Level 31 U/L Normal 12-53 Counts Include 234 Beds At [facility] ([place]) Comment on above: Result Comment: No te - New Reference Range in effect 20 Performed By: #### A VISHAL, HEPAC, CBC, ADIFF, GFR, MG, CMP #### [place] [address] MGon 05-11-2024 Magnesium [Mass/Vol] 1.9 mg/dL Normal 1.6-2.4 [facility] ([place]) Comment on above: Performed By: #### A VISHAL, HEPAC, CBC, ADIFF, GFR, MG, CMP #### [address] [address] TROPHSon 05-11-2024 High Sensitivity Troponin I <3 Normal 0-34 Counts Include 234 Beds At [facility] ([place] Comment on above: Result Comment: High Sensitive Troponin I Reference Ranges: Female: 0-34 ng/L Male: 0-54 ng/L Testing performed on Bag Borrow or Steal analyzer using direct chemiluminescent technology. Performed By: #### A VISHAL, HEPAC, CBC, ADIFF, GFR, MG, CMP #### [place] [address] TSHon 05-11-2024 TSH 0.776 mIU/mL Normal 0.550-4.780 Counts Include 234 Beds At [facility] ([place] Comment on above: Result Comment: No te - New Reference Range in effect 20 Performed By: #### C ORT, TSH #### [place] [address] TSH (EXTERNAL)on 05-10-2024 TSH Qn 2.81 m[IU]/L [facility] RESCVIDon 10-02-2023 Adenovirus Not detected Normal Not Detected Counts Include 234 Beds At [facility] ([place] Comment on above: Performed By: #### A VISHAL, HEPAC, CBC, ADIFF, GFR, MG, CMP #### [place] [address] Bordetella Parapertussis Not detected Normal Not Detected Counts Include 234 Beds At [facility] ([place] Comment on above: Performed By: #### A VISHAL, HEPAC, CBC, ADIFF, GFR, MG, CMP #### [place] [address] Bordetella Pertussis Not detected Normal Not Detected Counts Include 234 Beds At [facility] ([place] Comment on above: Performed By: #### A VISHAL, HEPAC, CBC, ADIFF, GFR, MG, CMP #### [place] [address] Chlamydophila pneumoniae Not detected Normal Not Detected Counts Include 234 Beds At [facility] ([place] Comment on above: Performed By: #### A VISHAL, HEPAC, CBC, ADIFF, GFR, MG, CMP #### [place] [address] Coronavirus 229E (Not COVID-19) Not detected Normal Not Detected Counts Include 234 Beds At [facility] ([place]) Comment on above: Performed By: #### A VISHAL, HEPAC, CBC, ADIFF, GFR, MG, CMP #### [place] [address] Coronavirus HKU1 (Not COVID-19) Not detected Normal Not Detected Counts Include 234 Beds At [facility] ([place]) Comment on above: Performed By: #### A VISHAL, HEPAC, CBC, ADIFF, GFR, MG, CMP #### [place] [address] Coronavirus NL63 (Not COVID-19) Not detected Normal Not Detected Counts Include 234 Beds At [facility] ([place]) Comment on above: Performed By: #### A VISHAL, HEPAC, CBC, ADIFF, GFR, MG, CMP #### [place] [address] Coronavirus OC43 (Not COVID-19) Not detected Normal Not Detected Counts Include 234 Beds At [facility] ([place]) Comment on above: Performed By: #### A VISHAL, HEPAC, CBC, ADIFF, GFR, MG, CMP #### [place] [address] Human Metapneumovirus Not detected Normal Not Detected Counts Include 234 Beds At [facility] ([place]) Comment on above: Performed By: #### A VISHAL, HEPAC, CBC, ADIFF, GFR, MG, CMP #### [place] [address] Influenza A Not detected Normal Not Detected Counts Include 234 Beds At [facility] ([place]) Comment on above: Performed By: #### A VISHAL, HEPAC, CBC, ADIFF, GFR, MG, CMP #### [place] [address] Influenza B Not detected Normal Not Detected Counts Include 234 Beds At [facility] ([place]) Comment on above: Performed By: #### A VISHAL, HEPAC, CBC, ADIFF, GFR, MG, CMP #### [place] [address] Mycoplasma pneumoniae Not detected Normal Not Detected Counts Include 234 Beds At [facility] ([place] Comment on above: Performed By: #### A VISHAL, HEPAC, CBC, ADIFF, GFR, MG, CMP #### [place] [address] Parainfluenza 1 Not detected Normal Not Detected [facility] ([place]) Comment on above: Performed By: #### A VISHAL, HEPAC, CBC, ADIFF, GFR, MG, CMP #### [place] [address] Parainfluenza 2 Not detected Normal Not Detected [facility] ([place] Comment on above: Performed By: #### A VISHAL, HEPAC, CBC, ADIFF, GFR, MG, CMP #### [place] [address] Parainfluenza 3 Not detected Normal Not Detected [facility] ([place] Comment on above: Performed By: #### A VISHAL, HEPAC, CBC, ADIFF, GFR, MG, CMP #### [place] [address] Parainfluenza 4 Not detected Normal Not Detected [facility] ([place] Comment on above: Performed By: #### A VISHAL, HEPAC, CBC, ADIFF, GFR, MG, CMP #### [place] [address] Respiratory Syncytial Virus Detected Abnormal Not Detected Counts Include 234 Beds At [facility] ([place] Comment on above: Performed By: #### A VISHAL, HEPAC, CBC, ADIFF, GFR, MG, CMP #### [place] [address] Rhinovirus/Enterovirus Not detected Normal Not Detecte d Counts Include 234 Beds At [facility] ([place] Comment on above: Performed By: #### A VISHAL, HEPAC, CBC, ADIFF, GFR, MG, CMP #### [facility] [address] [place], [place] [address] SARS-CoV-2 (COVID-19) RNA PINKY+probe Ql (Unsp spec) Not detected Normal Not Detected Counts Include 234 Beds At [facility] ([place]) Comment on above: Result Comment: This test is being used under the FDA EUA procedure. This assay has been validated in the [facility] for use with nasopharyngeal specimens in [facility]. If a non-validated specimen or test collection method was used, please interpret the results with caution, especially if the test result is negative. A positive test result for COVID-19 indicates that RNA from SARS-CoV-2 was detected, and the patient is infected with the virus and presumed to be contagious. Laboratory test results should always be considered in the context of clinical observations and epidemiological data in making a final diagnosis and patient management decisions. Patient management should follow current CDC guidelines. A negative test result for this test means that SARS-CoV-2 RNA was not present in the specimen above the limit of detection. However, a negative result does not rule out COVID-19 and should not be used as the sole basis for treatment or patient management decisions. A negative result does not exclude the possibility of COVID-19. When diagnostic testing is negative, the possibility of a false negative result should be considered in the context of a patient's recent exposures and the presence of clinical signs and symptoms consistent with COVID-19. The possibility of a false negative result should especially be considered if the patient?s recent exposures or clinical presentation indicate that COVID-19 is likely, and diagnostic tests for other causes of illness (e.g., other respiratory illness) are negative. If COVID-19 is still suspected based on exposure history together with other clinical findings, re-testing should be considered by healthcare providers in consultation with public health authorities. Performed By: #### A VISHAL, HEPAC, CBC, ADIFF, GFR, MG, CMP #### [place] [address] COLONOSCOPY DIAGNOSTICon [facility] GLUCOSE, BLOOD (POC)on 08-09 Glucose [Mass/Vol] 86 mg/dL 74 - 99 mg/dL [facility] Absolute lymphocyte countOrd ered By: Roby Crowley on 07-24-2023 Lymphocytes Auto (Unsp spec) [#/Vol] 2.94 10*3/uL 0.83-4.51 [facility] Basophil percentageOrdered B y: Roby Crowley on 07-24-2023 Basophils/100 WBC (Bld) 0.4 % 0-1 [facility] Bilirubin [Mass/Vol] 0.50 mg/dL 0.20-1.00 [facility] Comment on above: For patients on eltr ombopag therapy, use of [employer] [place] TBIL is not recommended. Chloride [Moles/Vol] 106 mmol/L 98-107 [facility] Eosinophils/100 WBC (Bld) 0.0 % 0-5 [facility] Glucose [Mass/Vol] 79 mg/dL 74-106 [facility] Lactate [Moles/Vol] 1.7 mmol/L 0.4-2.0 [facility] Neutrophils (Bld) [#/Vol] 6.5 10*3/uL 2.0-7.7 [facility] Neutrophils/100 WBC (Bld) 62.1 % 47-70 [facility] Potassium [Moles/Vol] 3.8 mmol/L 3.5-5.1 [facility] Protein [Mass/Vol] 7.9 g/dL 6.4-8.2 [facility] Sodium [Moles/Vol] 140 mmol/L 136-145 [facility] WBC (Bld) [#/Vol] 10.4 10*3/uL 4.4-11.0 [facility] Blood erythrocytes count (nu mber/volume)Ordered By: Roby Crowley on 07-24-2023 RBC (Bld) [#/Vol] 4.61 10*6/uL 4.2-5.4 [facility] Blood hemoglobin measurement (mass/volume)Ordered By: Roby Crowley on 07-24-2023 Hemoglobin (Bld) [Mass/Vol] 12.1 g/dL 12.0-15.0 [facility] Blood lymphocytes/100 leukoc ytesOrdered By: Roby Crowley on 07-24-2023 Lymphocytes/100 WBC (Bld) 28.2 % 19-41 [facility] Blood monocytes/100 leukocyt esOrdered By: Roby Crowley on 07-24-2023 Monocytes/100 WBC (Bld) 8.7 % 0-10 [facility] Blood platelet mean volumeOr dered By: Roby Crowley on 07-24-2023 Platelet mean volume (Bld) [Entitic vol] 9.3 fL 6.2-12.0 [facility] Determination of erythrocyte mean corpuscular volume (MCV)Ordered By: Roby Crowley on 07-24-2023 MCV (RBC) [Entitic vol] 84.6 fL 81-99 [facility] Direct bilirubinOrdered By: Roby Crowley on 07-24-2023 Bilirubin.direct [Mass/Vol] 0.12 mg/dL 0.00-0.30 [facility] Hematocrit Auto (Bld) [Volum e fraction]Ordered By: Roby Crowley on 07-24-2023 Hematocrit (Bld) [Volume fraction] 39.0 % 37-47 [facility] Laboratory - Chemistry and C hemistry - challengeOrdered By: Roby Crowley on 07-24-2023 ALP [Catalytic activity/Vol] 83 U/L 45-117 [facility] ALT [Catalytic activity/Vol] 32 U/L 13-56 [facility] CO2 [Moles/Vol] 28.0 mmol/L 21.0-32.0 [facility] Globulin (S) [Mass/Vol] 4.5 g/dL 2.2-4.2 [facility] Lipase [Catalytic activity/Vol] 19 U/L 13-75 [facility] Comment on above: Please note:LIPASE r evised reference range effective 23. New Lipase methodology. Expected to produce lower values than the previous assay method. NEW Reference Range: 13 - 75 U/L Urea nitrogen/Creatinine [Mass ratio] 7.6 mg/mg 10-20 [facility] Laboratory - Hematology and Cell countsOrdered By: Roby Crowley on 07-24-2023 Erythrocyte distribution width (RBC) [Entitic vol] 42.5 fL 35.1-43.9 [facility] Erythrocyte distribution width (RBC) [Ratio] 13.8 % 11.6-14.6 [facility] Immature granulocytes/100 WBC (Bld) 0.600 % 0.0-0.9 [facility] Comment on above: IG% - Immature Granu locytes (promyelocytes, myelocytes and metamyelocytes) > 1% indicates that a LEFT SHIFT is Present. MCH (RBC) [Entitic mass] 26.2 pg 27.0-32.0 [facility] Nucleated RBC/100 WBC (Bld) [Ratio] 0 % 0-5 [facility] MCHC Auto (RBC) [Mass/Vol]Or dered By: Roby Crowley on 07-24-2023 MCHC (RBC) [Mass/Vol] 31.0 g/dL 32-36 [facility] No Panel InformationOrdered By: Roby Crowley on 07-24-2023 Estimated GFR (MDRD) Amer 110 mL/min >60 [facility] Comment on above: GFR Calc Estimated GFR (MDRD) Non-Af Amer 91 mL/min >60 [facility] Comment on above: Non- GFR Calc Platelets bldOrdered By: Buster Crowley on 07-24-2023 Platelets (Bld) [#/Vol] 344 10*3/uL 150-450 [facility] Serum or plasma albumin evert urement (mass/volume)Ordered By: Roby Crowley on 07-24-2023 Albumin [Mass/Vol] 3.4 g/dL 3.2-5.0 [facility] Serum or plasma calcium evert urement (mass/volume)Ordered By: Roby Crowley on 07-24-2023 Calcium [Mass/Vol] 9.0 mg/dL 8.5-10.1 [facility] Serum or plasma creatinine m easurement (mass/volume)Ordered By: Roby Crowley on 07-24-2023 Creatinine [Mass/Vol] 0.79 mg/dL 0.55-1.02 [facility] Comment on above: The validity of the calculated GFR & GFRAA in patients over 70 years has not been determined. Clinical correlation is essential. Serum or plasma urea nitroge n measurement (mass/volume)Ordered By: Roby Crowley on 07-24-2023 Urea nitrogen [Mass/Vol] 6 mg/dL 7-18 [facility] Thin prep Papanicolaou smear with manual screeningOrdered By: Roby Crowley on 07-24-2023 Thin prep Papanicolaou smear with manual screening 16 U/L 15-37 [facility] Thin prep Papanicolaou smear with manual screening 6 5-15 [facility] Absolute lymphocyte countOrd ered By: Danyell Saenz on 06-09-2023 Lymphocytes Auto (Unsp spec) [#/Vol] 2.23 10*3/uL 0.83-4.51 [facility] Basophil percentageOrdered B y: Danyell Saenz on 06-09-2023 Basophil percentage 0 SEEN /hpf 0-5 [facility] Basophils/100 WBC (Bld) 0.2 % 0-1 [facility] Bilirubin [Mass/Vol] 0.50 mg/dL 0.20-1.00 [facility] Comment on above: For patients on eltr ombopag therapy, use of Dimension [place] TBIL is not recommended. Chloride [Moles/Vol] 104 mmol/L 98-107 [facility] Eosinophils/100 WBC (Bld) 0.0 % 0-5 [facility] Glucose [Mass/Vol] 98 mg/dL 74-106 [facility] Neutrophils (Bld) [#/Vol] 10.6 10*3/uL 2.0-7.7 [facility] Neutrophils/100 WBC (Bld) 75.8 % 47-70 [facility] Potassium [Moles/Vol] 4.1 mmol/L 3.5-5.1 [facility] Comment on above: Moderate Hemolysis, Result may be falsely increased. Protein [Mass/Vol] 7.9 g/dL 6.4-8.2 [facility] Sodium [Moles/Vol] 136 mmol/L 136-145 [facility] WBC (Bld) [#/Vol] 14.0 10*3/uL 4.4-11.0 [facility] Bilirubin Test strip Ql (U)O rdered By: Danyell Saenz on 06-09-2023 Bilirubin Ql (U) Negative Negative [facility] Blood erythrocytes count (nu mber/volume)Ordered By: Danyell Saenz on 06-09-2023 RBC (Bld) [#/Vol] 4.42 10*6/uL 4.2-5.4 [facility] Blood hemoglobin measurement (mass/volume)Ordered By: Danyell Saenz on 06-09-2023 Hemoglobin (Bld) [Mass/Vol] 11.7 g/dL 12.0-15.0 [facility] Blood lymphocytes/100 leukoc ytesOrdered By: Danyell Saenz on 06-09-2023 Lymphocytes/100 WBC (Bld) 16.0 % 19-41 [facility] Blood monocytes/100 leukocyt esOrdered By: Danyell Saenz on 06-09-2023 Monocytes/100 WBC (Bld) 7.0 % 0-10 [facility] Blood platelet mean volumeOr dered By: Danyell Saenz on 06-09-2023 Platelet mean volume (Bld) [Entitic vol] 9.6 fL 6.2-12.0 [facility] Determination of erythrocyte mean corpuscular volume (MCV)Ordered By: Danyell Saenz on 06-09-2023 MCV (RBC) [Entitic vol] 85.3 fL 81-99 [facility] Direct bilirubinOrdered By: Danyell Saenz on 06-09-2023 Bilirubin.direct [Mass/Vol] 0.08 mg/dL 0.00-0.30 [facility] Hematocrit Auto (Bld) [Volum e fraction]Ordered By: Danyell Saenz on 06-09-2023 Hematocrit (Bld) [Volume fraction] 37.7 % 37-47 [facility] Ketones Test strip Ql (U)Ord ered By: Danyell Saenz on 06-09-2023 Ketones Ql (U) Negative Negative [facility] Laboratory - Chemistry and C hemistry - challengeOrdered By: Danyell Saenz on 06-09-2023 ALP [Catalytic activity/Vol] 70 U/L 45-117 [facility] ALT [Catalytic activity/Vol] 30 U/L 13-56 [facility] CO2 [Moles/Vol] 26.0 mmol/L 21.0-32.0 [facility] Globulin (S) [Mass/Vol] 4.5 g/dL 2.2-4.2 [facility] Lipase [Catalytic activity/Vol] 33 U/L 13-75 [facility] Comment on above: Please note:LIPASE r evised reference range effective 23. New Lipase methodology. Expected to produce lower values than the previous assay method. NEW Reference Range: 13 - 75 U/L Urea nitrogen/Creatinine [Mass ratio] 15.0 mg/mg 10-20 [facility] Laboratory - Hematology and Cell countsOrdered By: Danyell Saenz on 06-09-2023 Erythrocyte distribution width (RBC) [Entitic vol] 44.4 fL 35.1-43.9 [facility] Erythrocyte distribution width (RBC) [Ratio] 14.5 % 11.6-14.6 [facility] Immature granulocytes/100 WBC (Bld) 1.000 % 0.0-0.9 [facility] Comment on above: IG% - Immature Granu locytes (promyelocytes, myelocytes and metamyelocytes) > 1% indicates that a LEFT SHIFT is Present. MCH (RBC) [Entitic mass] 26.5 pg 27.0-32.0 [facility] Nucleated RBC/100 WBC (Bld) [Ratio] 0 % 0-5 [facility] MCHC Auto (RBC) [Mass/Vol]Or dered By: Danyell Saenz on 06-09-2023 MCHC (RBC) [Mass/Vol] 31.0 g/dL 32-36 [facility] Mucus LM Ql (Urine sed)Order ed By: Danyell Saenz on 06-09-2023 Mucus Ql (Urine sed) 0 SEEN /hpf [facility] Nitrite Test strip Ql (U)Ord ered By: Danyell Saenz on 06-09-2023 Nitrite Ql (U) Negative Negative [facility] No Panel InformationOrdered By: Danyell Saenz on 06-09-2023 Estimated Creatinine Clearance Calc 92.53 ml/min [facility] Estimated GFR (MDRD) Amer 108 mL/min >60 [facility] Comment on above: GFR Calc Estimated GFR (MDRD) Non-Af Amer 89 mL/min >60 [facility] Comment on above: Non- GFR Calc Platelets bldOrdered By: Janine Saenz on 06-09-2023 Platelets (Bld) [#/Vol] 364 10*3/uL 150-450 [facility] Protein Test strip Ql (U)Ord ered By: Danyell Saenz on 06-09-2023 Protein Ql (U) Negative Negative [facility] Serum or plasma albumin evert urement (mass/volume)Ordered By: Danyell Saenz on 06-09-2023 Albumin [Mass/Vol] 3.4 g/dL 3.2-5.0 [facility] Serum or plasma calcium evert urement (mass/volume)Ordered By: Danyell Saenz on 06-09-2023 Calcium [Mass/Vol] 9.5 mg/dL 8.5-10.1 [facility] Serum or plasma creatinine m easurement (mass/volume)Ordered By: Danyell Saenz on 06-09-2023 Creatinine [Mass/Vol] 0.80 mg/dL 0.55-1.02 [facility] Comment on above: The validity of the calculated GFR & GFRAA in patients over 70 years has not been determined. Clinical correlation is essential. Serum or plasma urea nitroge n measurement (mass/volume)Ordered By: Danyell Saenz on 06-09-2023 Urea nitrogen [Mass/Vol] 12 mg/dL -18 [facility] Squamous epithelial cells de tection in urine sediment by light microscopyOrdered By: Danyell Saenz on 06-09-2023 Epithelial cells.squamous LM Ql (Urine sed) 0 SEEN /hpf 5-10 [facility] Thin prep Papanicolaou smear with manual screeningOrdered By: Danyell Saenz on 06-09-2023 Thin prep Papanicolaou smear with manual screening 18 U/L 15-37 [facility] Comment on above: Moderate Hemolysis, Result may be falsely increased. Thin prep Papanicolaou smear with manual screening 6 5-15 [facility] Urine blood detectionOrdered By: Danyell Saenz on 06-09-2023 RBC Ql (U) 50 /ul Negative [facility] RBC Ql (U) 0 SEEN /hpf 0-5 [facility] Urine clarityOrdered By: Janine Saenz on 06-09-2023 Clarity (U) Clear Clear [facility] Urine color determinationOrd ered By: Danyell Saenz on 06-09-2023 Color (U) Yellow Yellow [facility] Urine glucose detectionOrder ed By: Danyell Saenz on 06-09-2023 Glucose Ql (U) Normal mg/dl Normal [facility] Urine leukocyte esterase det ection by dipstickOrdered By: Danyell Saenz on 06-09-2023 Leukocyte esterase Test strip Ql (U) Negative Negative [facility] Urine pHOrdered By: Danyell rebolledo on 06-09-2023 pH (U) 7.0 [pH] 5.0 - 8.0 [facility] Urine sediment bacteria coun t by microscopy (number/high power field)Ordered By: Danyell Saenz on 06-09-2023 Bacteria LM.HPF (Urine sed) [#/Area] 0 /[HPF] None Seen [facility] Urine specific gravity measu rementOrdered By: Danyell Saenz on 06-09-2023 Specific gravity (U) [Rel density] 1.010 1.002-1.030 [facility] Urobilinogen Auto test strip Ql (U)Ordered By: Danyell Saenz on 06-09-2023 Urobilinogen Ql (U) Normal mg/dl Normal [facility] CASE MANAGEMon 05-12-2023 CASE MANAGEM HNO ID: [id number] Author: Rimma Edwards MSW Service: Nursing Author Type: Chart Changer Type: Care Mgt Progress Note Filed: 05/12/2023 8:04 AM Note Text: CARE MANAGEMENT PROGRESS NOTE SERVICE DATE: 05/12/2023 SERVICE TIME: 8:04 AM LOS: 9 days Progress note Reviewed epic. Patient came in for elevated liver enzymes. Patient is currently receiving IV antibiotics GI consulted. Plan is for patient to return home when LFTs are back to normal. SIGNATURE: EDWIN Meza PATIENT NAME: Sonia Szymanski DATE: May 12, 2023 TIME: 7:56 AM PAGER/CONTACT #: [phone] Normal [facility] CBC W Auto Differential pane l (Bld)on 05-12-2023 Basophils (Bld) [#/Vol] 0.08 10*3/uL Normal <0.11 [facility] Comment on above: Order Comment: Speci men Type: BLOOD SPECIMENOrdering Facility: [facility] Address: [address] [place] [phone] Performed By: #### 5 7021-8 ####[facility] LABORATORYCLIA [id number] [place] [address] [place] Basophils/100 WBC (Bld) 0.8 % Normal [facility] Comment on above: Order Comment: Speci men Type: BLOOD SPECIMENOrdering Facility: [facility] Address: [address] [address] Performed By: #### 5 7021-8 ####[facility] LABORATORYCLIA [id number] [place] [address] [place] [facility] [place] Differential cell count method Nom (Bld) Auto Normal [facility] Comment on above: Order Comment: Speci men Type: BLOOD SPECIMENOrdering Facility: [facility] Address: [address] [place] [address] Performed By: #### 5 7021-8 ####[facility] LABORATORYCLIA [id number] [place] [address] [place] Eosinophils (Bld) [#/Vol] 0.14 10*3/uL Normal <0.46 [facility] Comment on above: Order Comment: Speci men Type: BLOOD SPECIMENOrdering Facility: [facility] Address: [address] [place] [address] Performed By: #### 5 7021-8 ####[facility] LABORATORYCLIA [id number] [address] [place] Eosinophils/100 WBC (Bld) 1.4 % Normal [facility] Comment on above: Order Comment: Speci men Type: BLOOD SPECIMENOrdering Facility: [facility] Address: [address] [address] Performed By: #### 5 7021-8 ####[facility] LABORATORYCLIA [id number] [address] [place] Erythrocyte distribution width (RBC) [Ratio] 16.0 % High 11.5-15.0 [facility] Comment on above: Order Comment: Speci men Type: BLOOD SPECIMENOrdering Facility: [facility] Address: [address] [place], [place] [phone] Performed By: #### 5 7021-8 ####[facility] LABORATORYCLIA [id number] [place] [address] [place] Hematocrit (Bld) [Volume fraction] 34.0 % Low 36.0-46.0 [facility] Comment on above: Order Comment: Speci men Type: BLOOD SPECIMENOrdering Facility: [facility] Address: [address] [address] Performed By: #### 5 7021-8 ####[facility] LABORATORYCLIA [id number] [place] [address] [place] Hemoglobin (Bld) [Mass/Vol] 10.8 g/dL Low 11.5-15.5 [facility] Comment on above: Order Comment: Speci men Type: BLOOD SPECIMENOrdering Facility: [facility] Address: [address] [address] Performed By: #### 5 7021-8 ####[facility] LABORATORYCLIA [id number] [place] [address] [place] Immature granulocytes (Bld) [#/Vol] 0.16 10*3/uL High <0.10 [facility] Comment on above: Order Comment: Speci men Type: BLOOD SPECIMENOrdering Facility: [facility] Address: [address] [address] Performed By: #### 5 7021-8 ####[facility]ORATORYCLIA [id number] [place] [address] [place] Immature granulocytes/100 WBC (Bld) 1.7 % Normal [facility] Comment on above: Order Comment: Speci men Type: BLOOD SPECIMENOrdering Facility: [facility] Address: [address] [address] Performed By: #### 5 7021-8 ####[facility] LABORATORYCLIA [id number] [place] [address] [place] Lymphocytes (Bld) [#/Vol] 3.59 10*3/uL Normal 1.00-4.00 [facility] Comment on above: Order Comment: Speci men Type: BLOOD SPECIMENOrdering Facility: [facility] Address: [address] [address] Performed By: #### 5 7021-8 ####[facility]ORATORYCLIA [id number] [address] [place] Lymphocytes/100 WBC (Bld) 37.2 % Normal [facility] Comment on above: Order Comment: Speci men Type: BLOOD SPECIMENOrdering Facility: [facility] Address: [address] [address] Performed By: #### 5 7021-8 ####[facility] LABORATORYCLIA [id number] [place] [address] [place] MCH (RBC) [Entitic mass] 26.7 pg Normal 26.0-34.0 [facility] Comment on above: Order Comment: Speci men Type: BLOOD SPECIMENOrdering Facility: [facility] Address: [address] [address] Performed By: #### 5 7021-8 ####[facility] LABORATORYCLIA [id number] [address] [place] MCHC (RBC) [Mass/Vol] 31.8 g/dL Normal 30.5-36.0 [facility] Comment on above: Order Comment: Speci men Type: BLOOD SPECIMENOrdering Facility: [facility] Address: [address] [address] Performed By: #### 5 7021-8 ####[facility] LABORATORYCLIA [id number] [place] [address] [place] MCV (RBC) [Entitic vol] 84.0 fL Normal 80.0-100.0 [facility] Comment on above: Order Comment: Speci men Type: BLOOD SPECIMENOrdering Facility: [facility] Address: [address] [address] Performed By: #### 5 7021-8 ####[facility] LABORATORYCLIA [id number] [place] [address] [place] Monocytes (Bld) [#/Vol] 0.97 10*3/uL High <0.87 [facility] Comment on above: Order Comment: Speci men Type: BLOOD SPECIMENOrdering Facility: [facility] Address: [address] [address] Performed By: #### 5 7021-8 ####[facility]ORATORYCLIA [id number] [place] [address] [place] Monocytes/100 WBC (Bld) 10.0 % Normal [facility] Comment on above: Order Comment: Speci men Type: BLOOD SPECIMENOrdering Facility: [facility] Address: [address] [place] [address] Performed By: #### 5 7021-8 ####[facility] LABORATORYCLIA [id number] [place] [address] [place] Neutrophils (Bld) [#/Vol] 4.72 10*3/uL Normal 1.45-7.50 [facility] Comment on above: Order Comment: Speci men Type: BLOOD SPECIMENOrdering Facility: [facility] Address: [address] [place] [address] Performed By: #### 5 7021-8 ####[facility] LABORATORYCLIA [id number] [place] [address] [place] Neutrophils/100 WBC (Bld) 48.9 % Normal [facility] Comment on above: Order Comment: Speci men Type: BLOOD SPECIMENOrdering Facility: [facility] Address: [address] [place] [address] Performed By: #### 5 7021-8 ####[facility] LABORATORYCLIA [id number] [place] [address] [place] Nucleated RBC (Bld) [#/Vol] 10*3/uL Normal <0.01 [facility] Comment on above: Order Comment: Speci men Type: BLOOD SPECIMENOrdering Facility: [facility] Address: [address] [address] Performed By: #### 5 7021-8 ####[facility] LABORATORYCLIA [id number] [place] [address] [place] Nucleated RBC/100 WBC (Bld) [Ratio] 0.0 /100 WBC Normal [facility] Comment on above: Order Comment: Speci men Type: BLOOD SPECIMENOrdering Facility: [facility] Address: [address] [address] Performed By: #### 5 7021-8 ####[facility] LABORATORYCLIA [id number] [place] [address] [place] Platelet mean volume (Bld) [Entitic vol] 9.3 fL Normal 9.0-12.7 [facility] Comment on above: Order Comment: Speci men Type: BLOOD SPECIMENOrdering Facility: [facility] Address: [address] [place] [address] Performed By: #### 5 7021-8 ####[facility] LABORATORYCLIA [id number] [place] [address] [place] Platelets (Bld) [#/Vol] 316 10*3/uL Normal 150-400 [facility] Comment on above: Order Comment: Speci men Type: BLOOD SPECIMENOrdering Facility: [facility] Address: [address] [address] Performed By: #### 5 7021-8 ####[facility] LABORATORYCLIA [id number] [place] [address] [place] RBC (Bld) [#/Vol] 4.05 10*6/uL Normal 3.90-5.20 [facility] Comment on above: Order Comment: Speci men Type: BLOOD SPECIMENOrdering Facility: [facility] Address: [address] [address] Performed By: #### 5 7021-8 ####[facility]ORATORYCLIA [id number] [place] [address] [place] WBC (Bld) [#/Vol] 9.66 10*3/uL Normal 3.70-11.00 [facility] Comment on above: Order Comment: Speci men Type: BLOOD SPECIMENOrdering Facility: [facility] Address: [place] [address] Performed By: #### 5 7021-8 ####[facility] LABORATORYCLIA [id number] [place] [address] [facility] CNDSon 05-12-2023 CNDS HNO ID: [id number] Author: Duarte Wall APRN.HEALTH CLUB MANAGER Service: Hospital Medicine Author Type: Nurse Practitioner Type: Discharge Summary Filed: 05/12/2023 12:01 PM Note Text: Attestation signed by Mode Oliver DO at 05/12/2023 6:09 PM Patient admitted to the hospital for intractable nausea vomiting and abdominal pain. She was found to have a significantly elevated liver enzymes. Work-up was unremarkable and enzymes decreased with supportive care. Patient was able to tolerate a diet at discharge. 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 DISCHARGE SUMMARY PATIENT NAME: Sonia Szymanski ADMISSION DATE: 05/03/2023 DISCHARGE DATE: 05/12/2023 ATTENDING PHYSICIAN: Mode Oliver DO Code Status: Full Code Highest Readmission Risk Score: 29 The 30 day readmissions risk score is derived from an internally validated risk model which evaluates patient level characteristics, utilization history, medication orders and lab results up until the day of discharge. Patients with a score of 40 or above are considered highest risk for readmission. Specific patient level drivers will be listed at the bottom of the summary. CONSULTING TEAMS DURING HOSPITALIZATION: Treatment Team: Attending Provider: Mode Oliver DO Consulting: Alicia Teresa MD Consulting: Brayan Woodall CNP REASON FOR HOSPITALIZATION: Elevated liver enzymes DIAGNOSIS: Elevated liver enzymes Nonepileptic seizure Bipolar disorder Depression/anxiety/PTSD /obsessive impulsive disorder Wabasso's disease Hypothyroidism Diabetes mellitus type 2 Upper extremity edema OPERATIONS DURING HOSPITALIZATION: None PROCEDURES DURING HOSPITALIZATION: EKG and MRCP, ultrasound of the liver, ultrasound of the abdomen HOSPITAL COURSE: Sonia Szymanski is a 28-year-old female who transferred here from [facility] for abnormal liver enzymes. She follows with gastroenterology up in [place] and of note patient has had elevated liver enzymes in October (did downward trend at that time as well), work-up at that time done in the winter and spring included unremarkable EBV serology, BOBBY, ASMA, acute hepatitis panel, ferritin, MRCP showed mild dilatation of the CBD without filling defect and right upper quadrant ultrasound was unremarkable. EGD done this year by Dr. Bowen showed bile gastritis and unremarkable duodenal biopsy for celiac sprue. Pathology from 2021 with unremarkable terminal ileum and random colon biopsies as well. Labs from outside facility acetaminophen level was unremarkable. LFTs have been downward trending and now almost back to normal alk phos 94, AST 22, ALT 237. Of note: Patient was recently started on Anafranil which has an ADR of hepatitis, she is also on Zanaflex, Zoloft which are also hepatotoxic. She reports her mother has liver disease but she does not know what type. She reports ongoing right upper quadrant pain that is sharp and stabbing worse after eating with associated intermittent heartburn and nausea. This started back in October when her liver enzymes were elevated the first time she, she even required a feeding tube for a week. Recently, she has developed dizziness, fatigue, muscle aches, joint pain, headache, light sensitivity (reports she does not have a migraine at present) has been worsened. She denies any recent fever. She states she had a CAT scan at [facility] and was told she had a fatty liver, and her physical chart here at the facility I do not see that CAT scan report. Abdominal ultrasound showed no acute abdominal findings and a normal hepatic Doppler. Patient was evaluated by gastroenterology and noted that acute hepatitis resolving, with resolving transaminitis. GI did not have a good explanation for this to have happened except possible episode of hypotension that resulted in hypoperfusion of the liver. All her liver numbers are trending down nicely without deseeding any of her medications, autoimmune work-up and other liver work-up including MRCP reviewed to be negative. Patient had been on IV antibiotics Zosyn, she has been tolerating a diet with occasional nausea and abdominal pain. Plan is to discharge home today with oxycodone IR 10 mg Q4H as needed x 4 days. Patient has been advised to follow-up with her PCP in 1 week after discharge. Transitions of Care Critical Issues: N/A LABS AND PROCEDURES PENDING AT DISCHARGE: No pending results. PATIENT CONDITION AT DISCHARGE: Stable DISCHARGE DISPOSITION: Home with Self Care PHYSICAL EXAM General - AANDOx3, NAD CV - HS I +II, regular, no murmurs RESP -clinically clear to auscultation ABD - soft, +BS, nontender, no palpable organs EXT -no bilateral leg edema NEURO - CN II-XII grossly intact, no focal de (more content not included)... Normal [facility] Comprehensive metabolic 2000 panelon 05-12-2023 Albumin [Mass/Vol] 3.2 g/dL Normal 3.2-5.0 [facility] Comment on above: Order Comment: Shaquille hernandez Type: BLOOD SPECIMENOrdering Facility: [facility] Address: [address] [id number] Performed By: #### 2 4323-8 ####[facility] LABORATORYCLIA [id number] [place] [address] [place] ALP [Catalytic activity/Vol] 94 U/L Normal 45-117 [facility] Comment on above: Order Comment: Shaquille hernandez Type: BLOOD SPECIMENOrdering Facility: [facility] Address: [address] [id number] Performed By: #### 2 4323-8 ####[facility] LABORATORYCLIA [id number] [place] [address] [place] ALT [Catalytic activity/Vol] 237 U/L High 13-61 [facility] Comment on above: Order Comment: Speci men Type: BLOOD SPECIMENOrdering Facility: [facility] Address: [address] [place] [address] Result Comment: Resu lts may be falsely depressed after the administration of Sulfasalazine and/or Sulfapyridine. Performed By: #### 2 4323-8 ####[facility] LABORATORYCLIA [id number] [place] [address] [place] Anion gap [Moles/Vol] 9 mmol/L Normal 5-16 [facility] Comment on above: Order Comment: Speci men Type: BLOOD SPECIMENOrdering Facility: [facility] Address: [address] [place] [address] Performed By: #### 2 4323-8 ####[facility] LABORATORYCLIA [id number] [place] [address] [place] AST [Catalytic activity/Vol] 22 U/L Normal 8-34 [facility] Comment on above: Order Comment: Speci men Type: BLOOD SPECIMENOrdering Facility: [facility] Address: [address] [place] [address] Result Comment: Resu lts may be falsely depressed after the administration of Sulfasalazine and/or Sulfapyridine. Performed By: #### 2 4323-8 ####[facility] LABORATORYCLIA [id number] [place] [address] [place] Bilirubin [Mass/Vol] 0.3 mg/dL Normal 0.2-1.0 [facility] Comment on above: Order Comment: Speci men Type: BLOOD SPECIMENOrdering Facility: [facility] Address: [address] [place] [address] Performed By: #### 2 4323-8 ####[facility] LABORATORYCLIA [id number] [place] [address] [place] Calcium [Mass/Vol] 9.0 mg/dL Normal 8.5-10.5 [facility] Comment on above: Order Comment: Speci men Type: BLOOD SPECIMENOrdering Facility: [facility] Address: [address] [address] Performed By: #### 2 4323-8 ####[facility] LABORATORYCLIA [id number] [place] [address] [place] Chloride [Moles/Vol] 105 mmol/L Normal 98-107 [facility] Comment on above: Order Comment: Speci men Type: BLOOD SPECIMENOrdering Facility: [facility] Address: [address] [place] [address] Performed By: #### 2 4323-8 ####[facility] LABORATORYCLIA [id number] [place] [address] [place] CO2 [Moles/Vol] 27 mmol/L Normal 21-32 [facility] Comment on above: Order Comment: Speci men Type: BLOOD SPECIMENOrdering Facility: [facility] Address: [address] [place] [address] Performed By: #### 2 4323-8 ####[facility] LABORATORYCLIA [id number] [place] [address] [place] Creatinine [Mass/Vol] 0.66 mg/dL Normal 0.51-0.95 [facility] Comment on above: Order Comment: Speci men Type: BLOOD SPECIMENOrdering Facility: [facility] Address: [address] [place] [address] Result Comment: Renee ents receiving either N-Acetylcysteine (NAC) or Metamizole prior to venipuncture, may have falsely depressed results. Performed By: #### 2 4323-8 ####[facility] LABORATORYCLIA [id number] [place] [address] [place] ESTIMATED GLOMERULAR FILTRATION RATE 121 mL/min/1.73m??? Normal >=60 [facility] Comment on above: Order Comment: Speci men Type: BLOOD SPECIMENOrdering Facility: [facility] Address: [address] [place] [address] Result Comment: Columba mated Glomerular Filtration Rate (eGFR) is calculated using the 2020 CKD-EPI creatinine equation. This equation utilizes serum creatinine, sex, and age as parameters. The creatinine assay has traceable calibration to isotope dilution-mass spectrometry. Refer to KDIGO guidelines for clinical interpretation. In patients with unstable renal function, e.g. those with acute kidney injury, the eGFR may not accurately reflect actual GFR. Performed By: #### 2 4323-8 ####[facility] LABORATORYCLIA [id number] [address] [id number] [place] Glucose [Mass/Vol] 99 mg/dL Normal 70-100 [facility] Comment on above: Order Comment: Shaquille hernandez Type: BLOOD SPECIMENOrdering Facility: [facility] Address: [address] [phone] Result Comment: The [place] Diabetes Association (ADA) provides guidance for cutoff [...] Standards of Medical Care in Diabetes 2016, [place] Diabetes Association. Diabetes Care. 2016.39(Suppl 1). Results may be falsely elevated after the administration of Sulfapyridine. Results may be falsely depressed after the administration of Sulfasalazine. Performed By: #### 2 4323-8 ####[facility] LABORATORYCLIA [id number] [place] [address] [place] Potassium [Moles/Vol] 3.7 mmol/L Normal 3.5-5.1 [facility] Comment on above: Order Comment: Shaquille hernandez Type: BLOOD SPECIMENOrdering Facility: [facility] Address: [address] [phone] Performed By: #### 2 4323-8 ####[facility] LABORATORYCLIA [id number] [address] [id number] [place] Protein [Mass/Vol] 6.6 g/dL Normal 6.0-8.5 [facility] Comment on above: Order Comment: Speci men Type: BLOOD SPECIMENOrdering Facility: [facility] Address: [address] [address] Performed By: #### 2 4323-8 ####[facility]ORATORYCLIA [id number] [address] [place] Sodium [Moles/Vol] 141 mmol/L Normal 136-145 [facility] Comment on above: Order Comment: Speci men Type: BLOOD SPECIMENOrdering Facility: [facility] Address: [address] [address] Performed By: #### 2 4323-8 ####[facility] LABORATORYCLIA [id number] [place] [address] [place] Urea nitrogen [Mass/Vol] 8 mg/dL Normal 7-26 [facility] Comment on above: Order Comment: Speci men Type: BLOOD SPECIMENOrdering Facility: [facility] Address: [address] Performed By: #### 2 4323-8 ####[facility] LABORATORYCLIA [id number] [place] [address] [place] Comprehensive metabolic 2000 panelon 05-11-2023 Albumin [Mass/Vol] 3.3 g/dL Normal 3.2-5.0 [facility] Comment on above: Order Comment: Speci men Type: BLOOD SPECIMEN [facility] Address: [address] Performed By: #### 2 4323-8 #### [facility] CLIA [id number] [address] [place] [address] [place] ALP [Catalytic activity/Vol] 107 U/L Normal 45-117 [facility] Comment on above: Order Comment: Speci men Type: BLOOD SPECIMEN [facility] Address: [address] [address] Performed By: #### 2 4323-8 #### [facility] CLIA [id number] [address] [place] [address] [place] ALT [Catalytic activity/Vol] 324 U/L High 13-61 [facility] Comment on above: Order Comment: Shaquille hernandez Type: BLOOD SPECIMEN [facility] Address: [address] [place] [address] Result Comment: Resu lts may be falsely depressed after the administration of Sulfasalazine and/or Sulfapyridine. Performed By: #### 2 4323-8 #### [facility] CLIA [id number] [address] [place] [address] [place] Anion gap [Moles/Vol] 10 mmol/L Normal 5-16 [facility] Comment on above: Order Comment: Shaquille hernandez Type: BLOOD SPECIMEN [facility] Address: [address] [place] [address] Performed By: #### 2 4323-8 #### [facility] CLIA [id number] [address] [place] [address] [place] AST [Catalytic activity/Vol] 33 U/L Normal 8-34 [facility] Comment on above: Order Comment: Shaquille hernandez Type: BLOOD SPECIMEN [facility] Address: [address] [place] [address] Result Comment: Resu lts may be falsely depressed after the administration of Sulfasalazine and/or Sulfapyridine. Performed By: #### 2 4323-8 #### [facility] CLIA [id number] [address] [place] [address] [place] Bilirubin [Mass/Vol] 0.6 mg/dL Normal 0.2-1.0 [facility] Comment on above: Order Comment: Shaquille hernandez Type: BLOOD SPECIMEN [facility] Address: [address] [place] [address] Performed By: #### 2 4323-8 #### [facility] CLIA [id number] [address] [place] [address] [place] Calcium [Mass/Vol] 9.1 mg/dL Normal 8.5-10.5 [facility] Comment on above: Order Comment: Speci men Type: BLOOD SPECIMEN [facility] Address: [address] [place] [address] Performed By: #### 2 4323-8 #### [facility] CLIA [id number] [address] [place] [address] [place] Chloride [Moles/Vol] 104 mmol/L Normal 98-107 [facility] Comment on above: Order Comment: Speci men Type: BLOOD SPECIMEN [facility] Address: [address] [place] [address] Performed By: #### 2 4323-8 #### [facility] CLIA [id number] [address] [place] [address] [place] CO2 [Moles/Vol] 27 mmol/L Normal 21-32 [facility] Comment on above: Order Comment: Speci men Type: BLOOD SPECIMEN [facility] Address: [address] [place] [address] Performed By: #### 2 4323-8 #### [facility] CLIA [id number] [address] [place] [address] [place] Creatinine [Mass/Vol] 0.64 mg/dL Normal 0.51-0.95 [facility] Comment on above: Order Comment: Speci men Type: BLOOD SPECIMEN [facility] Address: [address] [place] [address] Result Comment: Renee ents receiving either N-Acetylcysteine (NAC) or Metamizole prior to venipuncture, may have falsely depressed results. Performed By: #### 2 4323-8 #### [facility] CLIA [id number] [address] [place] [address] [place] ESTIMATED GLOMERULAR FILTRATION RATE 122 mL/min/1.73m??? Normal >=60 [facility] Comment on above: Order Comment: Speci men Type: BLOOD SPECIMEN [facility] Address: [address] [place] [address] Result Comment: Columba mated Glomerular Filtration Rate (eGFR) is calculated using the 2020 CKD-EPI creatinine equation. This equation utilizes serum creatinine, sex, and age as parameters. The creatinine assay has traceable calibration to isotope dilution-mass spectrometry. Refer to KDIGO guidelines for clinical interpretation. In patients with unstable renal function, e.g. those with acute kidney injury, the eGFR may not accurately reflect actual GFR. Performed By: #### 2 4323-8 #### [facility] CLIA [id number] [address] [place] [address] [place] Glucose [Mass/Vol] 87 mg/dL Normal 70-100 [facility] Comment on above: Order Comment: Shaquille hernandez Type: BLOOD SPECIMEN [facility] Address: [address] [address] Result Comment: The [place] Diabetes Association (ADA) provides guidance for cutoff [...] Standards of Medical Care in Diabetes 2016, [place] Diabetes Association. Diabetes Care. 2016.39(Suppl 1). Results may be falsely elevated after the administration of Sulfapyridine. Results may be falsely depressed after the administration of Sulfasalazine. Performed By: #### 2 4323-8 #### [facility] CLIA [id number] [address] [place], [place] [id number] [place] Potassium [Moles/Vol] 4.0 mmol/L Normal 3.5-5.1 [facility] Comment on above: Order Comment: Shaquille hernandez Type: BLOOD SPECIMEN [facility] Address: [address] [phone] Performed By: #### 2 4323-8 #### [facility] CLIA [id number] [address] [place] [address] [place] Protein [Mass/Vol] 6.8 g/dL Normal 6.0-8.5 [facility] Comment on above: Order Comment: Speci men Type: BLOOD SPECIMEN [facility] Address: [address] [place] [address] Performed By: #### 2 4323-8 #### [facility] CLIA [id number] [address] [place] [address] [place] Sodium [Moles/Vol] 141 mmol/L Normal 136-145 [facility] Comment on above: Order Comment: Speci men Type: BLOOD SPECIMEN [facility] Address: [address] [place] [address] Performed By: #### 2 4323-8 #### [facility] CLIA [id number] [address] [place] [address] [place] Urea nitrogen [Mass/Vol] 9 mg/dL Normal 7-26 [facility] Comment on above: Order Comment: Speci men Type: BLOOD SPECIMEN [facility] Address: [address] [place] [address] Performed By: #### 2 4323-8 #### [facility] CLIA [id number] [address] [place] [address] [place] CASE MANAGEMon 05-10-2023 CASE MANAGEM HNO ID: [id number] Author: Rmima Edwards MSW Service: Nursing Author Type: Chart Changer Type: Care Mgt Progress Note Filed: 05/10/2023 8:10 AM Note Text: CARE MANAGEMENT PROGRESS NOTE SERVICE DATE: 05/10/2023 SERVICE TIME: 8:06 AM LOS: 7 days Progress note Reviewed epic. Patient came in for Elevated liver enzymes. Plan is to consult Gi and Endocrinology, continue IV fluids and MRI today. Will continue to follow for discharge planning. SIGNATURE: EDWIN Meza PATIENT NAME: Sonia Szymanski DATE: May 10, 2023 TIME: 8:05 AM PAGER/CONTACT #: [phone] Normal [facility] CBC W Auto Differential pane l (Bld)on 05-10-2023 Basophils (Bld) [#/Vol] 0.04 10*3/uL Normal <0.11 [facility] Comment on above: Order Comment: Speci men Type: BLOOD SPECIMEN [facility] Address: [address] [address] Performed By: #### 5 8410-2 #### [facility] CLIA [id number] [address] [place] [address] [place] Basophils/100 WBC (Bld) 0.5 % Normal [facility] Comment on above: Order Comment: Speci men Type: BLOOD SPECIMEN [facility] Address: [address] [place] [address] Performed By: #### 5 8410-2 #### [facility] CLIA [id number] [address] [place] [address] [place] Differential cell count method Nom (Bld) Auto Normal [facility] Comment on above: Order Comment: Speci men Type: BLOOD SPECIMEN [facility] Address: [address] [address] Performed By: #### 5 8410-2 #### [facility] CLIA [id number] [address] [place] [address] [place] Eosinophils (Bld) [#/Vol] 0.12 10*3/uL Normal <0.46 [facility] Comment on above: Order Comment: Speci men Type: BLOOD SPECIMEN [facility] Address: [address] [address] Performed By: #### 5 8410-2 #### [facility] CLIA [id number] [address] [place] [address] [place] Eosinophils/100 WBC (Bld) 1.4 % Normal [facility] Comment on above: Order Comment: Speci men Type: BLOOD SPECIMEN [facility] Address: [address] [address] Performed By: #### 5 8410-2 #### [facility] CLIA [id number] [address] [place] [address] [place] Erythrocyte distribution width (RBC) [Ratio] 16.0 % High 11.5-15.0 [facility] Comment on above: Order Comment: Speci men Type: BLOOD SPECIMEN [facility] Address: [address] [place] [address] Performed By: #### 5 8410-2 #### [facility] CLIA [id number] [address] [place] [address] [place] Hematocrit (Bld) [Volume fraction] 34.7 % Low 36.0-46.0 [facility] Comment on above: Order Comment: Speci men Type: BLOOD SPECIMEN [facility] Address: [address] [place] [address] Performed By: #### 5 8410-2 #### [facility] CLIA [id number] [address] [place] [address] [place] Hemoglobin (Bld) [Mass/Vol] 11.1 g/dL Low 11.5-15.5 [facility] Comment on above: Order Comment: Speci men Type: BLOOD SPECIMEN [facility] Address: [address] [place] [address] Performed By: #### 5 8410-2 #### [facility] CLIA [id number] [address] [place] [address] [place] Immature granulocytes (Bld) [#/Vol] 0.10 10*3/uL High <0.10 [facility] Comment on above: Order Comment: Speci men Type: BLOOD SPECIMEN [facility] Address: [address] [place] [address] Performed By: #### 5 8410-2 #### [facility] CLIA [id number] [address] [place] [address] [place] Immature granulocytes/100 WBC (Bld) 1.1 % Normal [facility] Comment on above: Order Comment: Speci men Type: BLOOD SPECIMEN [facility] Address: [address] [address] Performed By: #### 5 8410-2 #### [facility] CLIA [id number] [address] [place] [address] [place] Lymphocytes (Bld) [#/Vol] 3.16 10*3/uL Normal 1.00-4.00 [facility] Comment on above: Order Comment: Speci men Type: BLOOD SPECIMEN [facility] Address: [address] [address] Performed By: #### 5 8410-2 #### [facility] CLIA [id number] [address] [place] [address] [place] Lymphocytes/100 WBC (Bld) 36.2 % Normal [facility] Comment on above: Order Comment: Speci men Type: BLOOD SPECIMEN [facility] Address: [address] [address] Performed By: #### 5 8410-2 #### [facility] CLIA [id number] [address] [place] [address] [place] MCH (RBC) [Entitic mass] 26.6 pg Normal 26.0-34.0 [facility] Comment on above: Order Comment: Speci men Type: BLOOD SPECIMEN [facility] Address: [address] [address] Performed By: #### 5 8410-2 #### [facility] CLIA [id number] [address] [place] [address] [place] MCHC (RBC) [Mass/Vol] 32.0 g/dL Normal 30.5-36.0 [facility] Comment on above: Order Comment: Speci men Type: BLOOD SPECIMEN [facility] Address: [address] [address] Performed By: #### 5 8410-2 #### [facility] CLIA [id number] [address] [place] [address] [place] MCV (RBC) [Entitic vol] 83.2 fL Normal 80.0-100.0 [facility] Comment on above: Order Comment: Speci men Type: BLOOD SPECIMEN [facility] Address: [address] [address] Performed By: #### 5 8410-2 #### [facility] CLIA [id number] [address] [place] [address] [place] Monocytes (Bld) [#/Vol] 0.91 10*3/uL High <0.87 [facility] Comment on above: Order Comment: Speci men Type: BLOOD SPECIMEN [facility] Address: [address] [place] [address] Performed By: #### 5 8410-2 #### [facility] CLIA [id number] [address] [place] [address] [place] Monocytes/100 WBC (Bld) 10.4 % Normal [facility] Comment on above: Order Comment: Speci men Type: BLOOD SPECIMEN [facility] Address: [address] [place] [address] Performed By: #### 5 8410-2 #### [facility] CLIA [id number] [address] [place] [address] [place] Neutrophils (Bld) [#/Vol] 4.41 10*3/uL Normal 1.45-7.50 [facility] Comment on above: Order Comment: Speci men Type: BLOOD SPECIMEN [facility] Address: [address] [place] [address] Performed By: #### 5 8410-2 #### [facility] CLIA [id number] [address] [place] [address] [place] Neutrophils/100 WBC (Bld) 50.4 % Normal [facility] Comment on above: Order Comment: Speci men Type: BLOOD SPECIMEN [facility] Address: [address] [place], [place] [id number] Performed By: #### 5 8410-2 #### [facility] CLIA [id number] [address] [place] [address] [place] Nucleated RBC (Bld) [#/Vol] 10*3/uL Normal <0.01 [facility] Comment on above: Order Comment: Speci men Type: BLOOD SPECIMEN [facility] Address: [address] [address] Performed By: #### 5 8410-2 #### [facility] CLIA [id number] [address] [place] [address] [place] Nucleated RBC/100 WBC (Bld) [Ratio] 0.0 /100 WBC Normal [facility] Comment on above: Order Comment: Speci men Type: BLOOD SPECIMEN [facility] Address: [address] [address] Performed By: #### 5 8410-2 #### [facility] CLIA [id number] [address] [place] [address] [place] Platelet mean volume (Bld) [Entitic vol] 9.2 fL Normal 9.0-12.7 [facility] Comment on above: Order Comment: Speci men Type: BLOOD SPECIMEN [facility] Address: [address] [address] Performed By: #### 5 8410-2 #### [facility] CLIA [id number] [address] [place] [address] [place] Platelets (Bld) [#/Vol] 324 10*3/uL Normal 150-400 [facility] Comment on above: Order Comment: Speci men Type: BLOOD SPECIMEN [facility] Address: [address] Performed By: #### 5 8410-2 #### [facility] CLIA [id number] [address] [place] [address] [place] RBC (Bld) [#/Vol] 4.17 10*6/uL Normal 3.90-5.20 [facility] Comment on above: Order Comment: Speci men Type: BLOOD SPECIMEN [facility] Address: [address] [address] Performed By: #### 5 8410-2 #### [facility] CLIA [id number] [address] [place] [address] OF [facility] WBC (Bld) [#/Vol] 8.74 10*3/uL Normal 3.70-11.00 [facility] Comment on above: Order Comment: Speci men Type: BLOOD SPECIMEN [facility] Address: [address] [address] Performed By: #### 5 8410-2 #### [facility] CLIA [id number] [address] [place] [address] [facility] Comprehensive metabolic 2000 panelon 05-10-2023 Albumin [Mass/Vol] 3.1 g/dL Low 3.2-5.0 [facility] Comment on above: Order Comment: Speci men Type: BLOOD SPECIMEN Ordering Facility: [facility] Address: [address] [address] Performed By: #### 5 8410-2 #### [facility] CLIA [id number] [address] [place] [address] [place] ALP [Catalytic activity/Vol] 114 U/L Normal 45-117 [facility] Comment on above: Order Comment: Speci men Type: BLOOD SPECIMEN Ordering Facility: [facility] Address: [address] Performed By: #### 5 8410-2 #### [facility] CLIA [id number] [address] [place] [address] [place] ALT [Catalytic activity/Vol] 414 U/L High 13-61 [facility] Comment on above: Order Comment: Speci men Type: BLOOD SPECIMEN Ordering Facility: [facility] Address: [address] [address] Result Comment: Resu lts may be falsely depressed after the administration of Sulfasalazine and/or Sulfapyridine. Performed By: #### 5 8410-2 #### [facility] CLIA [id number] [address] [place] [address] [place] [facility] Anion gap [Moles/Vol] 8 mmol/L Normal 5-16 [facility] Comment on above: Order Comment: Speci men Type: BLOOD SPECIMEN Ordering Facility: [facility] Address: [address] [place] [address] Performed By: #### 5 8410-2 #### [facility] CLIA [id number] [address] [place] [address] [place] AST [Catalytic activity/Vol] 57 U/L High 8-34 [facility] Comment on above: Order Comment: Speci men Type: BLOOD SPECIMEN Ordering Facility: [facility] Address: [address] [place] [address] Result Comment: Resu lts may be falsely depressed after the administration of Sulfasalazine and/or Sulfapyridine. Performed By: #### 5 8410-2 #### [facility] CLIA [id number] [address] [place] [address] [place] Bilirubin [Mass/Vol] 0.9 mg/dL Normal 0.2-1.0 [facility] Comment on above: Order Comment: Speci men Type: BLOOD SPECIMEN Ordering Facility: [facility] Address: [address] [place] [address] Performed By: #### 5 8410-2 #### [facility] CLIA [id number] [address] [place] [address] [place] Calcium [Mass/Vol] 8.8 mg/dL Normal 8.5-10.5 [facility] Comment on above: Order Comment: Speci men Type: BLOOD SPECIMEN Ordering Facility: [facility] Address: [address] [place] [address] Performed By: #### 5 8410-2 #### [facility] CLIA [id number] [address] [place] [address] [place] Chloride [Moles/Vol] 105 mmol/L Normal 98-107 [facility] Comment on above: Order Comment: Shaquille hernandez Type: BLOOD SPECIMEN Ordering Facility: [facility] Address: [address] [address] Performed By: #### 5 8410-2 #### [facility] CLIA [id number] [address] [place] [address] [place] CO2 [Moles/Vol] 28 mmol/L Normal 21-32 [facility] Comment on above: Order Comment: Shaquille hernandez Type: BLOOD SPECIMEN Ordering Facility: [facility] Address: [address] [address] Performed By: #### 5 8410-2 #### [facility] CLIA [id number] [address] [place] [address] [place] Creatinine [Mass/Vol] 0.71 mg/dL Normal 0.51-0.95 [facility] Comment on above: Order Comment: Shaquille hernandez Type: BLOOD SPECIMEN Ordering Facility: [facility] Address: [address] [place] [address] Result Comment: Renee ents receiving either N-Acetylcysteine (NAC) or Metamizole prior to venipuncture, may have falsely depressed results. Performed By: #### 5 8410-2 #### [facility] CLIA [id number] [address] [place] [address] [place] ESTIMATED GLOMERULAR FILTRATION RATE 117 mL/min/1.73m??? Normal >=60 [facility] Comment on above: Order Comment: Shaquille hernandez Type: BLOOD SPECIMEN Ordering Facility: [facility] Address: [address] [place] [address] Result Comment: Columba mated Glomerular Filtration Rate (eGFR) is calculated using the 2020 CKD-EPI creatinine equation. This equation utilizes serum creatinine, sex, and age as parameters. The creatinine assay has traceable calibration to isotope dilution-mass spectrometry. Refer to KDIGO guidelines for clinical interpretation. In patients with unstable renal function, e.g. those with acute kidney injury, the eGFR may not accurately reflect actual GFR. Performed By: #### 5 8410-2 #### [facility] CLIA [id number] [address] [place] [address] [place] Glucose [Mass/Vol] 102 mg/dL High 70-100 [facility] Comment on above: Order Comment: Shaquille hernandez Type: BLOOD SPECIMEN Ordering Facility: [facility] Address: [address] [place] [address] Result Comment: The [place] Diabetes Association (ADA) provides guidance for cutoff [...] Standards of Medical Care in Diabetes 2016, [place] Diabetes Association. Diabetes Care. 2016.39(Suppl 1). Results may be falsely elevated after the administration of Sulfapyridine. Results may be falsely depressed after the administration of Sulfasalazine. Performed By: #### 5 8410-2 #### [facility] CLIA [id number] [address] [place] [address] [place] Potassium [Moles/Vol] 3.3 mmol/L Low 3.5-5.1 [facility] Comment on above: Order Comment: Shaquille hernandez Type: BLOOD SPECIMEN Ordering Facility: [facility] Address: [address] [address] Performed By: #### 5 8410-2 #### [facility] CLIA [id number] [address] [place] [address] [place] Protein [Mass/Vol] 6.6 g/dL Normal 6.0-8.5 [facility] Comment on above: Order Comment: Shaquille mary Type: BLOOD SPECIMEN Ordering Facility: [facility] Address: [address] [address] Performed By: #### 5 8410-2 #### [facility] CLIA [id number] [address] [place] [address] [place] Sodium [Moles/Vol] 141 mmol/L Normal 136-145 [facility] Comment on above: Order Comment: Speci men Type: BLOOD SPECIMEN Ordering Facility: [facility] Address: [address] [place] [address] Performed By: #### 5 8410-2 #### [facility] CLIA [id number] [address] [place] [address] [place] Urea nitrogen [Mass/Vol] 8 mg/dL Normal 7-26 [facility] Comment on above: Order Comment: Speci men Type: BLOOD SPECIMEN Ordering Facility: [facility] Address: [address] [place] [address] Performed By: #### 5 8410-2 #### [facility] CLIA [id number] [address] [place] [address] OF [place] NUTRITIONon 05-10-2023 NUTRITION HNO ID: [id number] Author: Savanah Clark RD Service: Nutrition Therapy Author Type: Registered Dietitian Type: Nutrition Filed: 05/10/2023 2:45 PM Note Text: NUTRITION THERAPY INITIAL ASSESSMENT SERVICE DATE: 05/10/2023 SERVICE TIME: 1420 Nutrition Assessment: Recommended Malnutrition Diagnosis: No Malnutrition Identified Nutrition Diagnosis: Problem: Suboptimal oral intake Related to: Acute illness As evidenced by: Patient/family self-report, Anorexia, Nausea, Vomiting Estimated kilocalorie needs: 1900 Calorie Calculation Method: [place]-St. Jeor (with activity factor) (x 1.2 SF) Estimated protein needs (grams): 115-140 Grams protein determined by: 2.0 - 2.5 g/kg, [place] body weight Care Plan: Continue current diet Supplements: Boost Glucose Control (QD) Monitor and Evaluation: Meet greater than 75% of estimated needs, Monitor fluid/electrolyte balance, Monitor labs, I/Os, vital signs, weight, Monitor bowel function Discharge Recommendations: Diet;Oral Supplements Diet: Carbohydrate controlled Oral Supplements: continue prn HPI: Admit for elevated LFTs, weakness, fatigue, dizziness, abd pain. PMH includes migraines, hypothyroidism, asthma, seizures, hypoglycemia, rheumatoid arthritis, Wabasso's disease. Gastroenterology following for acute hepatitis. Endocrinology following. Pt reported decreased appetite over the past couple days with n/v. Drinks Ensure q AM at home. Intake History: Nutrition Intake Prior to Admission: Greater than 75% estimated energy needs greater than or equal to 5 days Current Nutrition Intake: (Mostly adequate per Flowsheet. Pt reporting decreased appetite over the past few days.) Current Intake Over time: Greater than or equal to 5 days Diet Orders (From admission, onward) Start Ordered 05/03/23929 DIET CARBOHYDRATE CONTROLLED START NOW Question: Carbohydrate Control Answer: CONSISTENT CARBOHYDRATE 05/03/23916 Anthropometrics: Height: 165.1 cm (5' 5") Weight: 87.4 kg (192 lb 10.9 oz) Dosing Weight: 87.4 kg (192 lb 10.9 oz) Usual Weight: 87.1 kg (192 lb) 03/2023 Usual Weight Obtained From: Chart Review Body mass index is 32.06 kg/m?. Obese Weight change percentage over time: Stable Physical Exam: Subcutaneous fat loss: No fat loss Muscle loss: No muscle loss Potential micronutrient deficiency: No deficiency identified Edema/Ascites: Generalized, Upper extremities (non-pitting generalized; non-pitting face) Upper Extremity: Non-pitting (RUE) GI Symptoms: Nausea, Vomiting, Abdominal pain, Bloating, Gaseous, Anorexia Potential Signs of Inflammation: Chronic condition hypothyroidism, rheumatoid arthritis, hypoglycemia MNT Billing: $ Initial Assessment: 16-30 minutes SIGNATURE: Savanah Clark RD PATIENT NAME: Sonia Szymanski DATE: May 10, 2023 TIME: 2:42 PM Normal [facility] CBC panel Auto (Bld)on 05-09 Erythrocyte distribution width (RBC) [Ratio] 15.9 % High 11.5-15.0 [facility] Comment on above: Order Comment: Speci men Type: BLOOD SPECIMENOrdering Facility: [facility] Address: [address] [place] [id number] Performed By: #### 5 8410-2 ####[facility] [id number] [place] [address] [place] Hematocrit (Bld) [Volume fraction] 36.2 % Normal 36.0-46.0 [facility] Comment on above: Order Comment: Speci men Type: BLOOD SPECIMENOrdering Facility: [facility] Address: [address] [place] [address] Performed By: #### 5 8410-2 ####[facility] [id number] [place] [address] [place] Hemoglobin (Bld) [Mass/Vol] 11.7 g/dL Normal 11.5-15.5 [facility] Comment on above: Order Comment: Speci men Type: BLOOD SPECIMENOrdering Facility: [facility] Address: [address] [place] [address] Performed By: #### 5 8410-2 ####[facility] [id number] [place] [address] [place] MCH (RBC) [Entitic mass] 26.7 pg Normal 26.0-34.0 [facility] Comment on above: Order Comment: Speci men Type: BLOOD SPECIMENOrdering Facility: [facility] Address: [address] [place] [address] Performed By: #### 5 8410-2 ####[facility] [id number] [place] [address] [place] MCHC (RBC) [Mass/Vol] 32.3 g/dL Normal 30.5-36.0 [facility] Comment on above: Order Comment: Speci men Type: BLOOD SPECIMENOrdering Facility: [facility] Address: [address] [place] [address] Performed By: #### 5 8410-2 ####[facility] [id number] [place] [address] [place] MCV (RBC) [Entitic vol] 82.5 fL Normal 80.0-100.0 [facility] Comment on above: Order Comment: Speci men Type: BLOOD SPECIMENOrdering Facility: [facility] Address: [address] [place] [address] Performed By: #### 5 8410-2 ####[facility] [id number] [place] [address] [place] Nucleated RBC (Bld) [#/Vol] 10*3/uL Normal <0.01 [facility] Comment on above: Order Comment: Speci men Type: BLOOD SPECIMENOrdering Facility: [facility] Address: [address] [place] [address] Performed By: #### 5 8410-2 ####[facility] [id number] [place] [address] [place] Platelet mean volume (Bld) [Entitic vol] 9.0 fL Normal 9.0-12.7 [facility] Comment on above: Order Comment: Speci men Type: BLOOD SPECIMENOrdering Facility: [facility] Address: [address] [place] [address] Performed By: #### 5 8410-2 ####[facility] [id number] [place] [address] [place] Platelets (Bld) [#/Vol] 356 10*3/uL Normal 150-400 [facility] Comment on above: Order Comment: Speci men Type: BLOOD SPECIMENOrdering Facility: [facility] Address: [address] [place] [address] Performed By: #### 5 8410-2 ####[facility] [id number] [place] [address] [place] RBC (Bld) [#/Vol] 4.39 10*6/uL Normal 3.90-5.20 [facility] Comment on above: Order Comment: Speci men Type: BLOOD SPECIMENOrdering Facility: [facility] Address: [address] [place], [place] [id number] Performed By: #### 5 8410-2 ####[facility] [id number] [place] [address] [place] WBC (Bld) [#/Vol] 11.92 10*3/uL High 3.70-11.00 [facility] Comment on above: Order Comment: Speci men Type: BLOOD SPECIMENOrdering Facility: [facility] Address: [address] [place] [address] Performed By: #### 5 8410-2 ####[facility] [id number] [place] [address] [place] Hepatic function 2000 panelo n 05-09-2023 Albumin [Mass/Vol] 3.5 g/dL Normal 3.2-5.0 [facility] Comment on above: Order Comment: Speci men Type: BLOOD SPECIMENOrdering Facility: [facility] Address: [address] [place] [address] Performed By: #### 2 4325-3 ####[facility] [id number] [address] [place] ALP [Catalytic activity/Vol] 133 U/L High 45-117 [facility] Comment on above: Order Comment: Speci men Type: BLOOD SPECIMENOrdering Facility: [facility] Address: [address] [place] [address] Performed By: #### 2 4325-3 ####[facility]ORY[facility]IA [id number] [address] [place] ALT [Catalytic activity/Vol] 638 U/L High 13-61 [facility] Comment on above: Order Comment: Speci men Type: BLOOD SPECIMENOrdering Facility: [facility] Address: [address] [place] [address] Result Comment: Resu lts may be falsely depressed after the administration of Sulfasalazine and/or Sulfapyridine. Performed By: #### 2 4325-3 ####[facility] [id number] [address] [place] AST [Catalytic activity/Vol] 101 U/L High 8-34 [facility] Comment on above: Order Comment: Speci men Type: BLOOD SPECIMENOrdering Facility: [facility] Address: [address] [place], [place] [id number] Result Comment: Resu lts may be falsely depressed after the administration of Sulfasalazine and/or Sulfapyridine. Performed By: #### 2 4325-3 ####[facility]ORY[facility] [id number] [address] [place] Bilirubin [Mass/Vol] 0.9 mg/dL Normal 0.2-1.0 [facility] Comment on above: Order Comment: Speci men Type: BLOOD SPECIMENOrdering Facility: [facility] Address: [address] [place] [address] Performed By: #### 2 4325-3 ####[facility]ORYCLIA [id number] [address] Bilirubin.conjugated [Mass/Vol] 0.2 mg/dL Normal 0.0-0.4 [facility] Comment on above: Order Comment: Speci men Type: BLOOD SPECIMENOrdering Facility: [facility] Address: [address] [place] [address] Performed By: #### 2 4325-3 ####[facility]ORYCLIA [id number] [place] [address] [place] Protein [Mass/Vol] 7.7 g/dL Normal 6.0-8.5 [facility] Comment on above: Order Comment: Speci men Type: BLOOD SPECIMENOrdering Facility: [facility] Address: [address] [place] [address] Performed By: #### 2 4325-3 ####[facility]ORYCLIA [id number] [address] [place] MRI PANC/MATT WO IVCONon 07- MRI PANC/MATT WO IVCON * * *Final Report* * * DATE OF EXAM: May 09 2023 12:25PM [facility] 0729 - MRI PANC/MATT WO IVCON / PROCEDURE REASON: Abn liver function tests (LFTs) * * * * Physician Interpretation * * * * EXAMINATION: MRI PANC/MATT WO IVCON HISTORY: Abn liver function tests (LFTs) UPPER RIGHT ABDOMINAL PAIN, INFLAMMED LIVER, VOMITING, PT STATES NPO COMPARISON: 11/21/2022 PROCEDURE COMMENTS: MRI of the abdomen was performed without intravenous contrast per the MRCP protocol. The clinical history for this exam indicates the need for complex data rendering of the images. Image data was processed by means of stand-alone dedicated system, creating volume-rendered and MIP images which were then incorporated into the exam, to provide greater insight, specificity, and sensitivity in the imaging evaluation of the patient. FINDINGS: LOWER THORAX: No pleural effusion. LIVER AND BILIARY SYSTEM: Mild hepatic steatosis.. No biliary duct dilatation. Unremarkable gallbladder. SPLEEN: Unremarkable PANCREAS: Unremarkable ADRENAL GLANDS: Unremarkable KIDNEYS AND URETERS: No hydronephrosis.No focal lesion. BOWEL: No bowel dilatation PERITONEAL CAVITY: No ascites VASCULATURE: No aortic aneurysm. Assessment of vascular patency is suboptimal due to lack of IV contrast.. LYMPH NODES: No obvious ann mass ABDOMINAL WALL: Within normal limits OSSEOUS STRUCTURES: No suspicious osseous finding. IMPRESSION: 1. No acute finding. 2. Mild hepatic steatosis. Esthetician: FELICIA Transcribe Date/Time: May 10 2023 9:32A Dictated by : MELI SOLIS MD This examination was interpreted and the report reviewed and electronically signed by: MELI SOLIS MD on May 10 2023 9:40AM EST [id number] Normal [facility] US ARM VEIN DVT UNL VAS LABo n 05-09-2023 ARM VEIN DVT UNL VAS LAB Non-Invasive Vascular Laboratory [facility] Upper Extremity Venous Duplex Unilateral - Right Date of service/time: 05/09/2023 12:56:38 PM Name: MS. SONIA SZYMANSKI Date: 1995 Age: 28 years Gender: F Clinical Indication Upper extremity swelling. TECHNIQUE -------- A venous duplex ultrasound examination was performed, including grayscale imaging with compression maneuvers and color Doppler and spectral Doppler examination with augmentation maneuvers and response to respiration of the below mentioned veins. FINDINGS -------- RIGHT SIDE Internal jugular vein Doppler: normal flow. Compression: normal. Subclavian vein Doppler: normal flow. Compression: normal. Axillary vein Doppler: normal flow. Compression: normal. Brachial vein Doppler: normal flow. Compression: normal. Basilic vein Compression: normal. Cephalic vein Compression: normal. Radial vein Compression: normal. Ulnar vein Compression: normal. LEFT SIDE Subclavian vein Doppler: normal flow. Compression: normal. IMPRESSION RIGHT SIDE - DEEP VEINS Negative for acute deep vein thrombosis. RIGHT SIDE - SUPERFICIAL VEINS Negative for superficial thrombophlebitis in the basilic vein and cephalic vein. Technologist: Silvia Daniel Ordering physician: EMI ROBERTO Interpreting physician: Bo Melendez MD Final CC [employer] : [id number] See Link below for Image Normal [facility] AFP SerPl-ncon 05-08-2023 AFP [Mass/Vol] ng/mL Normal <11.0 [facility] Comment on above: Order Comment: Speci men Type: BLOOD SPECIMENOrdering Facility: [facility] Address: [address] [place] [address] Result Comment: The test is typically used as an aid in managing hepatocellular carcinoma and non-seminomatous testicular cancer when used in conjunction with physical examination, histology, and other clinical evaluation procedures. Normal levels of AFP do not entirely exclude the possibility of the above-mentioned conditions, other malignancies, and chronic liver diseases. The normal range has not been established for newborns. The Alpha-Fetoprotein test was performed using the Siemens Centaur XP chemiluminometric immunoassay method. Results obtained with different assay methods or kits cannot be used interchangeably. Performed By: #### 1 834-1 ####[facility] [id number] [place] [address] [place] CASE MANAGEMon 05-08-2023 CASE MANAGEM HNO ID: [id number] Author: EDWIN Meza Service: Nursing Author Type: Chart Changer Type: Care Mgt Progress Note Filed: 05/08/2023 11:02 AM Note Text: CARE MANAGEMENT PROGRESS NOTE SERVICE DATE: 05/08/2023 SERVICE TIME: 10:58 AM LOS: 5 days Progress note Reviewed Epic. Patient came in for elevated liver enzymes. Plan is to have a MRCP, repeat AMA/ASMA. Patient may need a liver biopsy. Will continue to follow. SIGNATURE: EDWIN Meza PATIENT NAME: Sonia Szymanski DATE: May 08, 2023 TIME: 10:58 AM PAGER/CONTACT #: [phone] [facility] CONSULT PROGon 05-08-2023 CONSULT PROG HNO ID: [id number] Author: Herman Maldonado MD Service: Gastroenterology Author Type: Physician Type: Consult Progress Note Filed: 05/08/2023 12:25 PM Note Text: GI CONSULT PROGRESS NOTE SERVICE DATE: 05/08/2023 SERVICE TIME: 957 CONSULTING SERVICE: Gastroenterology Subjective acute hepatitis, recurring elevated liver function studies, acute right upper quadrant abdominal pain with nausea INTERVAL HPI: Keke Szymanski is a 28-year-old female that was admitted from [facility] 05/03/2023 with new onset of upper abdominal pain, weakness/vertigo. Patient was initially seen and discharged home on meclizine but worsened. Transferred to [facility] with no improvement. 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 Has history of bipolar disease, depression, anxiety, PTSD. Has noted paroxysmal nonepileptic seizures on Vimpat. Patient continues to complain of severe right upper quadrant pain worse with deep breath and eating. Has no appetite with poor intake. Has consistent nausea with vomiting yesterday of bile emesis. Tends to have problems with constipation but was able to have bowel movement yesterday with no melena or hematochezia. Patient has history of heartburn/reflux on sucralfate and esomeprazole with symptoms controlled. She has reported previous episodes of elevated liver function studies with repeated acute hepatitis panel showing negative hepatitis A IgM, hepatitis B core, hepatitis B surface antigen, hepatitis C antibody negative. She is positive for hepatitis B surface antibody. Past history of cholecystectomy for cholelithiasis. Had MRCP 11/21/2022 that showed mild dilation of the common bile duct presumed secondary to cholecystectomy but no findings of filling defect. During this hospital course patient was admitted with liver function studies showing AST 223, ALT 579. Had significant increase 05/07/2023 with alk phos 137, AST 777, ALT 1116 but normal total bilirubin. Patient had a CBC with elevated white count of 11.38. Today the liver enzymes have trended down again with alk phos of 135, AST 172, ALT 798. She has had ultrasound Doppler study done 05/07/2023 that shows a mild increased liver echogenicity or fatty infiltration but common bile duct was 0.48 mm. Previous cholecystectomy. Spleen normal at 9.8 cm. Splenic vein and portal vein and hepatic veins patent. Partial liver work-up showed 05/06/2023 the cytomegalovirus and the alpha-1 antitrypsin are still pending. 05/05/2023 ceruloplasmin was normal. 05/03/2023 acute hepatitis panel negative. Past endoscopies: 11/22/[address] Mario Bowen noted reactive gastropathy, duodenum normal 11/16/[address] Jigna Jiang normal, biopsy normal 09/01/[address] Jigna Jiang normal with terminal ileum and random biopsies negative 07/04/2022 EGD at [facility]: Biopsy showed gastric inflammation 12/20/[address] Antonio Rinaldi noted reflux esophagitis with esophageal biopsy showing focal necrosis, gastritis 06/28/2017 EGD and colonoscopy with Dr. Oliver Sequeira noted slight narrowing at the GE junction approximately 38 cm, 1 cm hiatal hernia, mild erythema of the gastric mucosa and patchy areas in the fundic region. Duodenum normal. Biopsies indicated esophagus with chronic inflammation, gastric biopsy with inflammation, duodenal biopsy with focal or hyperplasia. No Miller's or H. pylori. Colonoscopy was normal and biopsies normal Previous liver work-up: 02/05/2023 iron panel: Serum iron 90, total iron binding capacity 285, 31.6% saturation, ferritin 154.5 11/24/2022 [place] virus IgM negative, IgG positive 11/22/2022 stool for occult blood negative, lactoferrin negative, stool cultures negative 11/22/2022 CMP: Alk phos 141, AST 173, ALT 536 11/21/2022 Tox screen: Positive for oxycodone 11/20/2022 acute hepatitis panel negative, ASMA negative 07/04/2022 hepatic panel: ALT 57, AST 49 06/25/2022 acute hepatitis panel negative but hepatitis B surface antibody positive, ASMA 1: 80, AMA negative 12/21/2021 acute hepatitis panel negative 02/09/2022 acute hepatitis panel negative 01/03/2022 C-reactive protein 1.1, sed rate 0. 05/09/2017 celiac panel: Low probability with low H DQ gene present Risk factors: Denies alcohol, tobacco use, substance abuse. Patient states intolerant of NSAID use. Mother had liver disease. Has hepatotoxic medications for home medication hydroxychloroquine, Vimpat Current Facility-Administered Medications Medication Dose Route Frequency oxyCODONE IR 5 mg tab(s) (ROXICODONE) 5 mg ORAL q 6 H PRN ondansetron (PF) 4 mg injection (ZOFRAN) 4 mg INTRAVENOUS q 8 H PRN NaCl 0.9% iv infusion 150 mL/hr INTRAVENOUS CONTINUOUS NaCl 0.9% iv flush bag 20 mL I (more content not included)... Normal [facility] Hepatic function 2000 panelo n 05-08-2023 Albumin [Mass/Vol] 3.5 g/dL Normal 3.2-5.0 [facility] Comment on above: Order Comment: Speci men Type: BLOOD SPECIMENOrdering Facility: [facility] Address: [address] [place] [address] Performed By: #### 2 4325-3 ####[facility] LABORATORYCLIA [id number] [place] [address] [place] ALP [Catalytic activity/Vol] 135 U/L High 45-117 [facility] Comment on above: Order Comment: Speci men Type: BLOOD SPECIMENOrdering Facility: [facility] Address: [address] [place] [address] Performed By: #### 2 4325-3 ####[facility] LABORATORYCLIA [id number] [place] [address] [place] ALT [Catalytic activity/Vol] 798 U/L High 13-61 [facility] Comment on above: Order Comment: Speci men Type: BLOOD SPECIMENOrdering Facility: [facility] Address: [address] [place] [address] Result Comment: Resu lts may be falsely depressed after the administration of Sulfasalazine and/or Sulfapyridine. Performed By: #### 2 4325-3 ####[facility] LABORATORYCLIA [id number] [place] [address] [place] AST [Catalytic activity/Vol] 172 U/L High 8-34 [facility] Comment on above: Order Comment: Speci men Type: BLOOD SPECIMENOrdering Facility: [facility] Address: [address] [place] [address] Result Comment: Resu lts may be falsely depressed after the administration of Sulfasalazine and/or Sulfapyridine. Performed By: #### 2 4325-3 ####[facility] LABORATORYCLIA [id number] [place] [address] [place] Bilirubin [Mass/Vol] 0.6 mg/dL Normal 0.2-1.0 [facility] Comment on above: Order Comment: Speci men Type: BLOOD SPECIMENOrdering Facility: [facility] Address: [address] [place] [address] Performed By: #### 2 4325-3 ####[facility] LABORATORYCLIA [id number] [place] [address] [place] Bilirubin.conjugated [Mass/Vol] 0.2 mg/dL Normal 0.0-0.4 [facility] Comment on above: Order Comment: Speci men Type: BLOOD SPECIMENOrdering Facility: [facility] Address: [address] [place] [address] Performed By: #### 2 4325-3 ####[facility] LABORATORYCLIA [id number] [place] [address] [place] Protein [Mass/Vol] 7.4 g/dL Normal 6.0-8.5 [facility] Comment on above: Order Comment: Speci men Type: BLOOD SPECIMENOrdering Facility: [facility] Address: [address] [place] [id number] Performed By: #### 2 4325-3 ####[facility] LABORATORYCLIA [id number] [place] [address] [place] LKM ABon 05-08-2023 LIVER-KIDNEY MICROSOMAL ABS <1:20 Normal <1:20 [facility] Comment on above: Order Comment: [facility] Type: BLOOD SPECIMEN [facility] Address: [address] [place] [phone] Result Comment: INTE RPRETIVE INFORMATION: Ccruy-Eapmke-Hzyazrlfz Abs, IgG Liver-Kidney Microsome IgG antibody (anti-LKM), as detected by indirect immunofluorescent antibody (IFA) techniques, may be observed in patients with autoimmune hepatitis type 2 (AIH-2), AIH-2 associated with autoimmune mtkphzgorfyvlbdluc-zvccxuxmzcs-xrvmlccgtl dystrophy (APECED), viral hepatitis C or D, and some forms of drug-induced hepatitis. This IFA does not differentiate among the four types of LKM antibodies (LKM-1, LKM-2, LKM-3, and a fourth type that recognizes CY and CY antigens). Of these, anti-LKM-1 (cytochrome [id number]) IgG antibodies are considered specific for AIH-2. This test was developed and its performance characteristics determined by [facility]. It has not been cleared or approved by the [place] Food and Drug Administration. This test was performed in a CLIA certified laboratory and is intended for clinical purposes. Performed By: [facility] [address] [place] [address] [employer] Work: Jose Guadalupe Alexander MD, PhD Performed By: #### 2 4323-8 #### [facility] CLIA [id number] [address] [place] [address] [place] Mitochondria Ab IF Ql (S)on 05-08-2023 Mitochondria M2 Ab IA Qn (S) 3.1 Units Normal <=20.0 [facility] Comment on above: Order Comment: Shaquille mary Type: BLOOD SPECIMEN [facility] Address: [address] [place] [phone] Performed By: #### 2 4323-8 #### [facility] CLIA [id number] [address] [place] [address] [place] Mitochondria M2 Ab Ql (S) Negative Normal Negative [facility] Comment on above: Order Comment: Speci men Type: BLOOD SPECIMEN [facility] Address: [address] [place] [address] Result Comment: Anti -mitochondrial antibody test is used as an aid in diagnosis of primary biliary cholangitis. Clinical correlation is required. Performed By: #### 2 4323-8 #### [facility] CLIA [id number] [address] [place] [address] [place] NURSING PROGon 05-08-2023 NURSING PROG HNO ID: [id number] Author: Zahira Moon RN Service: ? Author Type: Registered Nurse Type: Nursing Progress Note Filed: 05/08/2023 10:45 PM Note Text: Pt called c/o right arm being swollen @ 1915. At 1929 pt walked into halls AND c/o face being swollen. 1939 called out c/o right face,right numb, AND tongue being numb. 1947 message sent to Albaro Carr NP with sound. While waiting on a reply pt called again @ 1950 now c/o whole left side of her body down to her toes are numb. New message sent to Grecia. At 1999 Grecia here to see pt. Orders received. Normal [facility] PROTEIN ELECTROPHORESIS SERU M (P)on 05-08-2023 Albumin [Mass/Vol] 3.80 g/dL Normal 3.43-5.41 [facility] Comment on above: Order Comment: Speci men Type: BLOOD SPECIMEN [facility] Address: [address] [place] [address] Performed By: #### 5 8410-2 #### [facility] CLIA [id number] [address] [place] [address] [place] Alpha 1 globulin Elph [Mass/Vol] 0.35 g/dL Normal 0.18-0.43 [facility] Comment on above: Order Comment: Speci men Type: BLOOD SPECIMEN [facility] Address: [address] [place] [address] Performed By: #### 5 8410-2 #### [facility] CLIA [id number] [address] [place] [address] [place] Alpha 2 globulin Elph [Mass/Vol] 0.83 g/dL Normal 0.42-0.98 [facility] Comment on above: Order Comment: Speci men Type: BLOOD SPECIMEN [facility] Address: [address] [place] [address] Performed By: #### 5 8410-2 #### [facility] CLIA [id number] [address] [place] [address] [place] Beta globulin Elph [Mass/Vol] 1.10 g/dL Normal 0.61-1.17 [facility] Comment on above: Order Comment: Speci men Type: BLOOD SPECIMEN [facility] Address: [address] [place] [address] Performed By: #### 5 8410-2 #### [facility] CLIA [id number] [address] [place] [address] [place] Gamma globulin Elph [Mass/Vol] 1.13 g/dL Normal 0.53-1.51 [facility] Comment on above: Order Comment: Speci men Type: BLOOD SPECIMEN [facility] Address: [address] [place] [address] Performed By: #### 5 8410-2 #### [facility] CLIA [id number] [address] [place] [address] [place] M-PROTEIN LOCATION Normal [facility] Comment on above: Order Comment: Speci men Type: BLOOD SPECIMEN [facility] Address: [address] [place] [address] Result Comment: Not Applicable. Performed By: #### 5 8410-2 #### [facility] CLIA [id number] [address] [place] [address] Protein Fractions [Interp] No definitive M protein is identified on protein electrophoresis. Normal No definitive M protein is identified on protein electrophore sis. [facility] Comment on above: Order Comment: Speci men Type: BLOOD SPECIMEN [facility] Address: [address] [place] [address] Performed By: #### 5 8410-2 #### [facility] CLIA [id number] [address] [place] [address] Protein.monoclonal Elph [Mass/Vol] 0.00 g/dL Normal <=0.00 [facility] Comment on above: Order Comment: Speci men Type: BLOOD SPECIMEN [facility] Address: [address] [place] [address] Performed By: #### 5 8410-2 #### [facility] CLIA [id number] [address] [place] [address] SPE STAFF REVIEW Reviewed by Radha Guerrero M.D. [facility] Comment on above: Order Comment: Speci men Type: BLOOD SPECIMEN [facility] Address: [address] [place] [address] Performed By: #### 5 8410-2 #### [facility] CLIA [id number] [address] [place] [address] [place] Prot SerPl-mCncon 05-08-2023 Protein [Mass/Vol] 7.2 g/dL Normal 6.3-8.0 [facility] Comment on above: Order Comment: Speci men Type: BLOOD SPECIMENOrdering Facility: [facility] Address: [address] [place] [address] Performed By: #### 2 885-2 ####[facility] LABCLIA [id number] [facility] [id number] [place] [address] [place] Smooth muscle Ab Ql (S)on ACTIN SMOOTH MUSCLE IGG QUALITATIVE Negative Normal Negative [facility] Comment on above: Order Comment: Speci men Type: BLOOD SPECIMEN [facility] Address: [address] [place] [address] Performed By: #### 2 4323-8 #### [facility] CLIA [id number] [address] [place] [address] [place] ACTIN SMOOTH MUSCLE IGG QUANTITATIVE 4 Units Normal <20 [facility] Comment on above: Order Comment: Speci men Type: BLOOD SPECIMEN [facility] Address: [address] [place] [address] Performed By: #### 2 4323-8 #### [facility] CLIA [id number] [address] [place] [address] [place] Basic metabolic 2000 panelon 05-07-2023 Anion gap [Moles/Vol] 10 mmol/L Normal 5-16 [facility] Comment on above: Order Comment: Speci men Type: BLOOD SPECIMENOrdering Facility: [facility] Address: [address] [place] [address] Performed By: #### 2 4321-2, 15150-1 ####[facility] LABORATORYCLIA [id number] [place] [address] [place] Calcium [Mass/Vol] 8.9 mg/dL Normal 8.5-10.5 [facility] Comment on above: Order Comment: Speci men Type: BLOOD SPECIMENOrdering Facility: [facility] Address: [address] [place] [address] Performed By: #### 2 432-2, 38058-5 ####[facility]ORATORYCLIA [id number] [place] [address] [place] Chloride [Moles/Vol] 104 mmol/L Normal 98-107 [facility] Comment on above: Order Comment: Speci men Type: BLOOD SPECIMENOrdering Facility: [facility] Address: [address] [place] [address] Performed By: #### 2 4321-2, 98793-1 ####[facility]ORATORYCLIA [id number] [place] [address] [place] CO2 [Moles/Vol] 29 mmol/L Normal 21-32 [facility] Comment on above: Order Comment: Shaquille hernandez Type: BLOOD SPECIMENOrdering Facility: [facility] Address: [address] [place] [address] Performed By: #### 2 4321-2, 28636-4 ####[facility]ATORYCLIA [id number] [address] [place] Creatinine [Mass/Vol] 0.66 mg/dL Normal 0.51-0.95 [facility] Comment on above: Order Comment: Speci men Type: BLOOD SPECIMENOrdering Facility: [facility] Address: [address] [place] [address] Result Comment: Renee ents receiving either N-Acetylcysteine (NAC) or Metamizole prior to venipuncture, may have falsely depressed results. Performed By: #### 2 4321-2, 24970-0 ####[facility]ORATORYCLIA [id number] [address] ESTIMATED GLOMERULAR FILTRATION RATE 121 mL/min/1.73m??? Normal >=60 [facility] Comment on above: Order Comment: Shaquille hernandez Type: BLOOD SPECIMENOrdering Facility: [facility] Address: [address] [place] [address] Result Comment: Columba mated Glomerular Filtration Rate (eGFR) is calculated using the 2020 CKD-EPI creatinine equation. This equation utilizes serum creatinine, sex, and age as parameters. The creatinine assay has traceable calibration to isotope dilution-mass spectrometry. Refer to KDIGO guidelines for clinical interpretation. In patients with unstable renal function, e.g. those with acute kidney injury, the eGFR may not accurately reflect actual GFR. Performed By: #### 2 4321-2, 59109-8 ####[facility]ATORYCLIA [id number] [place] [address] [place] Glucose [Mass/Vol] 105 mg/dL High 70-100 [facility] Comment on above: Order Comment: Shaquille hernandez Type: BLOOD SPECIMENOrdering Facility: [facility] Address: [address] [place] [address] Result Comment: The [place] Diabetes Association (ADA) provides guidance for cutoff [...] Standards of Medical Care in Diabetes 2016, [place] Diabetes Association. Diabetes Care. 2016.39(Suppl 1). Results may be falsely elevated after the administration of Sulfapyridine. Results may be falsely depressed after the administration of Sulfasalazine. Performed By: #### 2 4321-2, 15810-7 ####[facility]ORATORYCLIA [id number] [place] [address] [place] Potassium [Moles/Vol] 3.6 mmol/L Normal 3.5-5.1 [facility] Comment on above: Order Comment: Speci men Type: BLOOD SPECIMENOrdering Facility: [facility] Address: [address] [place] [address] Performed By: #### 2 4321-2, 58423-4 ####[facility]ORATORYCLIA [id number] [place] [address] [place] Sodium [Moles/Vol] 143 mmol/L Normal 136-145 [facility] Comment on above: Order Comment: Speci men Type: BLOOD SPECIMENOrdering Facility: [facility] Address: [address] [place] [address] Performed By: #### 2 4321-2, 12297-7 ####[facility]ORATORYCLIA [id number] [place] [address] [place] Urea nitrogen [Mass/Vol] 8 mg/dL Normal 7-26 [facility] Comment on above: Order Comment: Speci men Type: BLOOD SPECIMENOrdering Facility: [facility] Address: [address] [place] [address] Performed By: #### 2 4321-2, 94395-2 ####[facility] LABORATORYCLIA [id number] [place] [address] [place] [facility] CBC W Auto Differential pane l (Bld)on 05-07-2023 Basophils (Bld) [#/Vol] 0.00 10*3/uL Normal <0.11 [facility] Comment on above: Order Comment: Speci men Type: BLOOD SPECIMENOrdering Facility: [facility] Address: [address] [place] [address] Performed By: #### 5 7021-8 ####[facility] LABORATORYCLIA [id number] [address] [place] Basophils/100 WBC (Bld) 0.0 % Normal [facility] Comment on above: Order Comment: Speci men Type: BLOOD SPECIMENOrdering Facility: [facility] Address: [address] [place] [place] [address] Performed By: #### 5 7021-8 ####[facility] LABORATORYCLIA [id number] [address] [place] Differential cell count method Nom (Bld) Manual Normal [facility] Comment on above: Order Comment: Speci men Type: BLOOD SPECIMENOrdering Facility: [facility] Address: [address] [place] [address] Performed By: #### 5 7021-8 ####[facility]ATORYCLIA [id number] [address] [place] Eosinophils (Bld) [#/Vol] 0.00 10*3/uL Normal <0.46 [facility] Comment on above: Order Comment: Speci men Type: BLOOD SPECIMENOrdering Facility: [facility] Address: [address] [place] [address] Performed By: #### 5 7021-8 ####[facility]ORATORYCLIA [id number] [place] [address] [place] Eosinophils/100 WBC (Bld) 0.0 % Normal [facility] Comment on above: Order Comment: Speci men Type: BLOOD SPECIMENOrdering Facility: [facility] Address: [address] [place] [address] Performed By: #### 5 7021-8 ####[facility] LABORATORYCLIA [id number] [place] [address] [place] Erythrocyte distribution width (RBC) [Ratio] 15.7 % High 11.5-15.0 [facility] Comment on above: Order Comment: Speci men Type: BLOOD SPECIMENOrdering Facility: [facility] Address: [address] [place] [address] Performed By: #### 5 7021-8 ####[facility]ORATORYCLIA [id number] [address] [place] Hematocrit (Bld) [Volume fraction] 36.5 % Normal 36.0-46.0 [facility] Comment on above: Order Comment: Speci men Type: BLOOD SPECIMENOrdering Facility: [facility] Address: [address] [place] [address] Performed By: #### 5 7021-8 ####[facility]ORATORYCLIA [id number] [place] [address] [place] Hemoglobin (Bld) [Mass/Vol] 11.6 g/dL Normal 11.5-15.5 [facility] Comment on above: Order Comment: Speci men Type: BLOOD SPECIMENOrdering Facility: [facility] Address: [address] [place] [address] Performed By: #### 5 7021-8 ####[facility] LABORATORYCLIA [id number] [place] [address] [place] Lymphocytes (Bld) [#/Vol] 3.87 10*3/uL Normal 1.00-4.00 [facility] Comment on above: Order Comment: Speci men Type: BLOOD SPECIMENOrdering Facility: [facility] Address: [address] [place] [address] Performed By: #### 5 7021-8 ####[facility]ATORYCLIA [id number] [address] [place] Lymphocytes/100 WBC (Bld) 34.0 % Normal [facility] Comment on above: Order Comment: Speci men Type: BLOOD SPECIMENOrdering Facility: [facility] Address: [address] [place] [address] Performed By: #### 5 7021-8 ####[facility] LABORATORYCLIA [id number] [address] [place] MCH (RBC) [Entitic mass] 26.4 pg Normal 26.0-34.0 [facility] Comment on above: Order Comment: Speci men Type: BLOOD SPECIMENOrdering Facility: [facility] Address: [address] [place] [address] Performed By: #### 5 7021-8 ####[facility]ATORYCLIA [id number] [address] [place] MCHC (RBC) [Mass/Vol] 31.8 g/dL Normal 30.5-36.0 [facility] Comment on above: Order Comment: Speci men Type: BLOOD SPECIMENOrdering Facility: [facility] Address: [address] [place] [address] Performed By: #### 5 7021-8 ####[facility]ORATORYCLIA [id number] [address] [place] MCV (RBC) [Entitic vol] 83.1 fL Normal 80.0-100.0 [facility] Comment on above: Order Comment: Speci men Type: BLOOD SPECIMENOrdering Facility: [facility] Address: [address] [address] Performed By: #### 5 7021-8 ####[facility]ATORYCLIA [id number] [address] [place] Monocytes (Bld) [#/Vol] 0.80 10*3/uL Normal <0.87 [facility] Comment on above: Order Comment: Speci men Type: BLOOD SPECIMENOrdering Facility: [facility] Address: [address] [place] [address] Performed By: #### 5 7021-8 ####[facility] LABORATORYCLIA [id number] [place] [address] [place] Monocytes/100 WBC (Bld) 7.0 % Normal [facility] Comment on above: Order Comment: Speci men Type: BLOOD SPECIMENOrdering Facility: [facility] Address: [address] [address] Performed By: #### 5 7021-8 ####[facility] LAB[facility]ATORYCLIA [id number] [place] [address] [place] Neutrophils (Bld) [#/Vol] 6.71 10*3/uL Normal 1.45-7.50 [facility] Comment on above: Order Comment: Speci men Type: BLOOD SPECIMENOrdering Facility: [facility] Address: [address] [place] [address] Performed By: #### 5 7021-8 ####[facility]ATORYCLIA [id number] [address] [place] Neutrophils/100 WBC (Bld) 59.0 % Normal [facility] Comment on above: Order Comment: Speci men Type: BLOOD SPECIMENOrdering Facility: [facility] Address: [address] Performed By: #### 5 7021-8 ####[facility] LABORATORYCLIA [id number] [place] [address] [place] Nucleated RBC (Bld) [#/Vol] 10*3/uL Normal <0.01 [facility] Comment on above: Order Comment: Speci men Type: BLOOD SPECIMENOrdering Facility: [facility] Address: [address] [address] Performed By: #### 5 7021-8 ####[facility] LABORATORYCLIA [id number] [place] [address] [place] Nucleated RBC/100 WBC (Bld) [Ratio] 0.0 /100 WBC Normal [facility] Comment on above: Order Comment: Speci men Type: BLOOD SPECIMENOrdering Facility: [facility] Address: [address] [address] Performed By: #### 5 7021-8 ####[facility] LABORATORYCLIA [id number] [place] [address] [place] Platelet mean volume (Bld) [Entitic vol] 9.2 fL Normal 9.0-12.7 [facility] Comment on above: Order Comment: Speci men Type: BLOOD SPECIMENOrdering Facility: [facility] Address: [address] [address] Performed By: #### 5 7021-8 ####[facility] LABORATORYCLIA [id number] [place] [address] [place] Platelets (Bld) [#/Vol] 390 10*3/uL Normal 150-400 [facility] Comment on above: Order Comment: Speci men Type: BLOOD SPECIMENOrdering Facility: [facility] Address: [address] [place] [address] Performed By: #### 5 7021-8 ####[facility] LABORATORYCLIA [id number] [place] [address] [place] Platelets Estimate (Bld) [#/Vol] Adequate Normal [facility] Comment on above: Order Comment: Speci men Type: BLOOD SPECIMENOrdering Facility: [facility] Address: [address] [address] Performed By: #### 5 7021-8 ####[facility] LABORATORYCLIA [id number] [place] [address] [place] RBC (Bld) [#/Vol] 4.39 10*6/uL Normal 3.90-5.20 [facility] Comment on above: Order Comment: Speci men Type: BLOOD SPECIMENOrdering Facility: [facility] Address: [address] [place] [address] Performed By: #### 5 7021-8 ####[facility] LABORATORYCLIA [id number] [address] [place]ORPH Reviewed: unremarkable Normal [facility] Comment on above: Order Comment: Speci men Type: BLOOD SPECIMENOrdering Facility: [facility] Address: [address] [address] Performed By: #### 5 7021-8 ####[facility] LABORATORYCLIA [id number] [address] [facility] WBC (Bld) [#/Vol] 11.38 10*3/uL High 3.70-11.00 [facility] Comment on above: Order Comment: Speci men Type: BLOOD SPECIMENOrdering Facility: [facility] Address: [address] [address] Performed By: #### 5 7021-8 ####[facility] LABORATORYCLIA [id number] [address] Hepatic function 2000 panelo n 05-07-2023 Albumin [Mass/Vol] 3.4 g/dL Normal 3.2-5.0 [facility] Comment on above: Order Comment: Speci men Type: BLOOD SPECIMENOrdering Facility: [facility] Address: [address] [address] Performed By: #### 2 4321-2, 12739-0 ####[facility] LABORATORYCLIA [id number] [address] ALP [Catalytic activity/Vol] 137 U/L High 45-117 [facility] Comment on above: Order Comment: Speci men Type: BLOOD SPECIMENOrdering Facility: [facility] Address: [address] Performed By: #### 2 4321-2, 65904-1 ####[facility] LABORATORYCLIA [id number] [address] ALT [Catalytic activity/Vol] 1166 U/L High 13-61 [facility] Comment on above: Order Comment: Speci men Type: BLOOD SPECIMENOrdering Facility: [facility] Address: [address] [place] [address] Result Comment: Resu lts may be falsely depressed after the administration of Sulfasalazine and/or Sulfapyridine. Performed By: #### 2 4321-2, 07778-0 ####[facility] LABORATORYCLIA [id number] [place] [address] [place] AST [Catalytic activity/Vol] 777 U/L High 8-34 [facility] Comment on above: Order Comment: Speci men Type: BLOOD SPECIMENOrdering Facility: [facility] Address: [address] [place] [address] Result Comment: Resu lts may be falsely depressed after the administration of Sulfasalazine and/or Sulfapyridine. Performed By: #### 2 4321-2, 54573-8 ####[facility] LABORATORYCLIA [id number] [place] [address] [place] Bilirubin [Mass/Vol] 1.0 mg/dL Normal 0.2-1.0 [facility] Comment on above: Order Comment: Speci men Type: BLOOD SPECIMENOrdering Facility: [facility] Address: [address] [place] [address] Performed By: #### 2 4321-2, 68311-3 ####[facility] LABORATORYCLIA [id number] [place] [address] [place] Bilirubin.conjugated [Mass/Vol] 0.4 mg/dL Normal 0.0-0.4 [facility] Comment on above: Order Comment: Speci men Type: BLOOD SPECIMENOrdering Facility: [facility] Address: [address] [place] [address] Performed By: #### 2 4321-2, 18319-8 ####[facility] LABORATORYCLIA [id number] [place] [address] [place] Protein [Mass/Vol] 7.3 g/dL Normal 6.0-8.5 [facility] Comment on above: Order Comment: Speci men Type: BLOOD SPECIMENOrdering Facility: [facility] Address: [place] [address] Performed By: #### 2 4321-2, 23753-0 ####[facility] LABORATORYCLIA [id number] [place] [address] [place] US ABD LIVER VASCULARon 07- US ABD LIVER VASCULAR * * *Final Report* * * DATE OF EXAM: May 07 2023 2:00PM [facility] 1233 - US ABD LIVER VASCULAR / PROCEDURE REASON: Liver disease, chronic, fibrosis * * * * Physician Interpretation * * * * EXAMINATION: LIVER VASCULAR ULTRASOUND WITH DOPPLER IMAGING CLINICAL HISTORY: Liver disease, chronic TECHNIQUE: Abdominal ultrasound was performed. Sonography of the liver with color and spectral Doppler imaging of the hepatic vasculature was performed. Images were obtained and stored in a permanent archive. MQ: USLV_1 COMPARISON: Abdominal ultrasound 05/04/2023 and MRI of the pancreas 11/21/2022 RESULT: Sonographic Findings: Pancreas: Normal sonographic appearance. Portions obscured: tail Liver: Echotexture: Normal, homogeneous. Echogenicity: Mildly increased Surface contour: Smooth Lesions: None. Biliary: No intrahepatic biliary duct dilation. CBD: 0.48 cm at the hilum. Gallbladder: Cholecystectomy Right Kidney: The right kidney measures 10.7 cm in length. No hydronephrosis. Left kidney: The left kidney measures 11 cm in length. No hydronephrosis. Spleen: The spleen measures 9.7 x 3.7 x 9.8 cm. There are no splenic lesions. Bladder: Normal Aorta: Partially visualized, maximum diameter 1.8 cm Inferior vena cava: Visualized portions are patent. Other: No ascites VASCULATURE: Splenic vein: Patent with normal waveforms The portal vein: Patent with normal waveforms and normal directional flow. Intrahepatic portal veins: Patent, normal waveforms and directionality. Hepatic artery: Patent, peak systolic velocity 69 cm/s. Inferior vena cava: patent Hepatic veins: Patent with normal waveforms. IMPRESSION: 1. No acute abdominal findings. 2. Normal hepatic Doppler. Esthetician: FELICIA Transcribe Date/Time: May 07 2023 3:32P Dictated by : MAHENDRA KEANE MD This examination was interpreted and the report reviewed and electronically signed by: MAHENDRA KEANE MD on May 07 2023 3:42PM EST [id number] Normal [facility] US ABDOMEN COMPLETEon 2022 US ABDOMEN COMPLETE * * *Final Report* * * DATE OF EXAM: May 07 2023 2:00PM U 1040 - US ABDOMEN COMPLETE / PROCEDURE REASON: Abn liver function tests (LFTs) * * * * Physician Interpretation * * * * EXAMINATION: LIVER VASCULAR ULTRASOUND WITH DOPPLER IMAGING CLINICAL HISTORY: Liver disease, chronic TECHNIQUE: Abdominal ultrasound was performed. Sonography of the liver with color and spectral Doppler imaging of the hepatic vasculature was performed. Images were obtained and stored in a permanent archive. MQ: USLV_1 COMPARISON: Abdominal ultrasound 05/04/2023 and MRI of the pancreas 11/21/2022 RESULT: Sonographic Findings: Pancreas: Normal sonographic appearance. Portions obscured: tail Liver: Echotexture: Normal, homogeneous. Echogenicity: Mildly increased Surface contour: Smooth Lesions: None. Biliary: No intrahepatic biliary duct dilation. CBD: 0.48 cm at the hilum. Gallbladder: Cholecystectomy Right Kidney: The right kidney measures 10.7 cm in length. No hydronephrosis. Left kidney: The left kidney measures 11 cm in length. No hydronephrosis. Spleen: The spleen measures 9.7 x 3.7 x 9.8 cm. There are no splenic lesions. Bladder: Normal Aorta: Partially visualized, maximum diameter 1.8 cm Inferior vena cava: Visualized portions are patent. Other: No ascites VASCULATURE: Splenic vein: Patent with normal waveforms The portal vein: Patent with normal waveforms and normal directional flow. Intrahepatic portal veins: Patent, normal waveforms and directionality. Hepatic artery: Patent, peak systolic velocity 69 cm/s. Inferior vena cava: patent Hepatic veins: Patent with normal waveforms. IMPRESSION: 1. No acute abdominal findings. 2. Normal hepatic Doppler. Esthetician: PSCB Transcribe Date/Time: May 07 2023 3:32P Dictated by : MAHENDRA KEANE MD This examination was interpreted and the report reviewed and electronically signed by: MAHENDRA KEANE MD on May 07 2023 3:42PM EST [id number] [facility] US DOPPLER COMPLETEon 2022 US DOPPLER COMPLETE * * *Final Report* * * DATE OF EXAM: May 07 2023 2:00PM [facility] 1033 - US DOPPLER COMPLETE / PROCEDURE REASON: Abn liver function tests (LFTs) * * * * Physician Interpretation * * * * EXAMINATION: LIVER VASCULAR ULTRASOUND WITH DOPPLER IMAGING CLINICAL HISTORY: Liver disease, chronic TECHNIQUE: Abdominal ultrasound was performed. Sonography of the liver with color and spectral Doppler imaging of the hepatic vasculature was performed. Images were obtained and stored in a permanent archive. MQ: USLV_1 COMPARISON: Abdominal ultrasound 05/04/2023 and MRI of the pancreas 11/21/2022 RESULT: Sonographic Findings: Pancreas: Normal sonographic appearance. Portions obscured: tail Liver: Echotexture: Normal, homogeneous. Echogenicity: Mildly increased Surface contour: Smooth Lesions: None. Biliary: No intrahepatic biliary duct dilation. CBD: 0.48 cm at the hilum. Gallbladder: Cholecystectomy Right Kidney: The right kidney measures 10.7 cm in length. No hydronephrosis. Left kidney: The left kidney measures 11 cm in length. No hydronephrosis. Spleen: The spleen measures 9.7 x 3.7 x 9.8 cm. There are no splenic lesions. Bladder: Normal Aorta: Partially visualized, maximum diameter 1.8 cm Inferior vena cava: Visualized portions are patent. Other: No ascites VASCULATURE: Splenic vein: Patent with normal waveforms The portal vein: Patent with normal waveforms and normal directional flow. Intrahepatic portal veins: Patent, normal waveforms and directionality. Hepatic artery: Patent, peak systolic velocity 69 cm/s. Inferior vena cava: patent Hepatic veins: Patent with normal waveforms. IMPRESSION: 1. No acute abdominal findings. 2. Normal hepatic Doppler. Esthetician: PSCB Transcribe Date/Time: May 07 2023 3:32P Dictated by : MAHENDRA KEANE MD This examination was interpreted and the report reviewed and electronically signed by: MAHENDRA KEANE MD on May 10 2023 12:28PM EST [id number] Normal [facility] Basic metabolic 2000 panelon 05-06-2023 Anion gap [Moles/Vol] 11 mmol/L Normal 5-16 [facility] Comment on above: Order Comment: Speci men Type: BLOOD SPECIMENOrdering Facility: [facility] Address: [address] [address] Performed By: #### 2 432-2, 81956-8 ####[facility] LABORATORYCLIA [id number] [place] [address] [place] Calcium [Mass/Vol] 8.7 mg/dL Normal 8.5-10.5 [facility] Comment on above: Order Comment: Speci men Type: BLOOD SPECIMENOrdering Facility: [facility] Address: [address] [address] Performed By: #### 2 2, 83473-4 ####[facility] LABORATORYCLIA [id number] [place] [address] [place] Chloride [Moles/Vol] 104 mmol/L Normal 98-107 [facility] Comment on above: Order Comment: Speci men Type: BLOOD SPECIMENOrdering Facility: [facility] Address: [address] [place] [address] Performed By: #### 2 4320-11, 76426-8 ####[facility] LABORATORYCLIA [id number] [place] [address] [place] CO2 [Moles/Vol] 27 mmol/L Normal 21-32 [facility] Comment on above: Order Comment: Speci men Type: BLOOD SPECIMENOrdering Facility: [facility] Address: [address] [place] [address] Performed By: #### 2 4320-11, 86674-8 ####[facility] LABORATORYCLIA [id number] [place] [address] [place] Creatinine [Mass/Vol] 0.63 mg/dL Normal 0.51-0.95 [facility] Comment on above: Order Comment: Speci men Type: BLOOD SPECIMENOrdering Facility: [facility] Address: [address] [place] [address] Result Comment: Renee ents receiving either N-Acetylcysteine (NAC) or Metamizole prior to venipuncture, may have falsely depressed results. Performed By: #### 2 4320-2, 66494-5 ####[facility] LABORATORYCLIA [id number] [address] [place] ESTIMATED GLOMERULAR FILTRATION RATE 123 mL/min/1.73m??? Normal >=60 [facility] Comment on above: Order Comment: Shaquille hernandez Type: BLOOD SPECIMENOrdering Facility: [facility] Address: [address] [place] [address] Result Comment: Columba mated Glomerular Filtration Rate (eGFR) is calculated using the 2020 CKD-EPI creatinine equation. This equation utilizes serum creatinine, sex, and age as parameters. The creatinine assay has traceable calibration to isotope dilution-mass spectrometry. Refer to KDIGO guidelines for clinical interpretation. In patients with unstable renal function, e.g. those with acute kidney injury, the eGFR may not accurately reflect actual GFR. Performed By: #### 2 4321-2, 34226-2 ####[facility] LABORATORYCLIA [id number] [address] [place] Glucose [Mass/Vol] 92 mg/dL Normal 70-100 [facility] Comment on above: Order Comment: Shaquille mary Type: BLOOD SPECIMENOrdering Facility: [facility] Address: [address] [place] [address] Result Comment: The [place] Diabetes Association (ADA) provides guidance for cutoff [...] Standards of Medical Care in Diabetes 2016, [place] Diabetes Association. Diabetes Care. 2016.39(Suppl 1). Results may be falsely elevated after the administration of Sulfapyridine. Results may be falsely depressed after the administration of Sulfasalazine. Performed By: #### 2 4321-2, 95215-8 ####[facility] LABORATORYCLIA [id number] [place] [address] [place] Potassium [Moles/Vol] 3.6 mmol/L Normal 3.5-5.1 [facility] Comment on above: Order Comment: Speci men Type: BLOOD SPECIMENOrdering Facility: [facility] Address: [address] [address] Performed By: #### 2 4321-2, 94708-8 ####[facility] LABORATORYCLIA [id number] [place] [address] [place] Sodium [Moles/Vol] 142 mmol/L Normal 136-145 [facility] Comment on above: Order Comment: Speci men Type: BLOOD SPECIMENOrdering Facility: [facility] Address: [address] [place] [address] Performed By: #### 2 4321-2, 95868-0 ####[facility] LABORATORYCLIA [id number] [address] [place] Urea nitrogen [Mass/Vol] 11 mg/dL Normal 7-26 [facility] Comment on above: Order Comment: Speci men Type: BLOOD SPECIMENOrdering Facility: [facility] Address: [address] [place] [address] Performed By: #### 2 4321-2, 33424-0 ####[facility] LABORATORYCLIA [id number] [place] [address] [place] CMV DNA DETECTION AND QUANTo n 05-06-2023 CMV DNA PINKY+probe Qn (P) Not detected Normal Not Detected [facility] Comment on above: Order Comment: Speci men Type: BLOOD SPECIMENOrdering Facility: [facility] Address: [address] [place] [address] Performed By: #### C MVQNT ####[facility] LABCLIA [id number] [address] [place] Hepatic function 2000 panelo n 05-06-2023 Albumin [Mass/Vol] 3.2 g/dL Normal 3.2-5.0 [facility] Comment on above: Order Comment: Speci men Type: BLOOD SPECIMENOrdering Facility: [facility] Address: [address] [place] [address] Performed By: #### 2 4321-2, 93375-3 ####[facility] LABORATORYCLIA [id number] [place] [address] [place] ALP [Catalytic activity/Vol] 102 U/L Normal 45-117 [facility] Comment on above: Order Comment: Speci men Type: BLOOD SPECIMENOrdering Facility: [facility] Address: [address] [place] [address] Performed By: #### 2 4321-2, 33283-8 ####[facility] LABORATORYCLIA [id number] [address] [place] ALT [Catalytic activity/Vol] 636 U/L High 13-61 [facility] Comment on above: Order Comment: Speci men Type: BLOOD SPECIMENOrdering Facility: [facility] Address: [address] [place] [address] Result Comment: Resu lts may be falsely depressed after the administration of Sulfasalazine and/or Sulfapyridine. Performed By: #### 2 4321-2, 38115-0 ####[facility] LABORATORYCLIA [id number] [address] [place] AST [Catalytic activity/Vol] 544 U/L High 8-34 [facility] Comment on above: Order Comment: Speci men Type: BLOOD SPECIMENOrdering Facility: [facility] Address: [address] [place] [address] Result Comment: Resu lts may be falsely depressed after the administration of Sulfasalazine and/or Sulfapyridine. Performed By: #### 2 4321-2, 34398-3 ####[facility] LABORATORYCLIA [id number] [place] [address] [place] Bilirubin [Mass/Vol] 0.5 mg/dL Normal 0.2-1.0 [facility] Comment on above: Order Comment: Speci men Type: BLOOD SPECIMENOrdering Facility: [facility] Address: [address] [address] Performed By: #### 2 4321-2, 82421-4 ####[facility] LABORATORYCLIA [id number] [place] [address] [place] Bilirubin.conjugated [Mass/Vol] 0.2 mg/dL Normal 0.0-0.4 [facility] Comment on above: Order Comment: Speci men Type: BLOOD SPECIMENOrdering Facility: [facility] Address: [address] [place] [address] Performed By: #### 2 4321-2, 73942-6 ####[facility] LABORATORYCLIA [id number] [place] [address] [place] Protein [Mass/Vol] 6.8 g/dL Normal 6.0-8.5 [facility] Comment on above: Order Comment: Speci men Type: BLOOD SPECIMENOrdering Facility: [facility] Address: [address] [place] [address] Performed By: #### 2 4321-2, 40326-5 ####[facility] LABORATORYCLIA [id number] [place] [address] [place] ALPHA 1 ANTITRYPS STon 05-05 [id number] STOOL, ERIN 0.38 mg/g Normal 0.00-0.50 [facility] Comment on above: Order Comment: Speci men Type: BLOOD SPECIMEN [facility] Address: [address] [place] [address] Result Comment: INTERPRETIVE INFORMATION: A1A ERIN, Random Stool This test was developed and its performance characteristics determined by [facility]. It has not been cleared or approved by the [place] Food and Drug Administration. This test was performed in a CLIA certified laboratory and is intended for clinical purposes. Performed By: [facility] [address] [place] [address] [employer] Work: Jose Guadalupe Alexander MD, PhD Performed By: #### 2 4323-8 #### [facility] CLIA [id number] [address] [place] [address] [place] BOBBY BY IFA SCREENon 05-05-20 Nuclear Ab IF (S) [Titer] Negative Normal Negative [facility] Comment on above: Order Comment: Shaquille hernandez Type: BLOOD SPECIMEN [facility] Address: [address] [address] Result Comment: Anti -nuclear antibody test is used as an aid in diagnosis of systemic autoimmune diseases. Where positive and clinically warranted, follow-up using disease-specific testing is recommended. Low positive titers are not uncommon with advanced age, certain chronic infections, and malignancies among others. Test methodology: Indirect fluorescence immunoassay (IFA) using HEp-2 cells. Performed By: #### 5 8410-2 #### [facility] CLIA [id number] [address] [place] [address] [place] Basic metabolic 2000 panelon 05-05-2023 Anion gap [Moles/Vol] 9 mmol/L Normal 5-16 [facility] Comment on above: Order Comment: Shaquille hernandez Type: BLOOD SPECIMENOrdering Facility: [facility] Address: [address] [address] Performed By: #### 2 4321-2, 2157-6, 86745-9 ####[facility] LABORATORYCLIA [id number] [place] [address] [place] Calcium [Mass/Vol] 9.1 mg/dL Normal 8.5-10.5 [facility] Comment on above: Order Comment: Shaquille hernandez Type: BLOOD SPECIMENOrdering Facility: [facility] Address: [address] Performed By: #### 2 4321-2, 2157-6, 58913-7 ####[facility] LABORATORYCLIA [id number] [place] [address] [place] Chloride [Moles/Vol] 106 mmol/L Normal 98-107 [facility] Comment on above: Order Comment: Nonii mary Type: BLOOD SPECIMENOrdering Facility: [facility] Address: [address] [address] Performed By: #### 2 4321-2, 2157-03, 32640-6 ####[facility] LABORATORYCLIA [id number] [place] [address] [place] CO2 [Moles/Vol] 28 mmol/L Normal 21-32 [facility] Comment on above: Order Comment: Speci men Type: BLOOD SPECIMENOrdering Facility: [facility] Address: [address] [address] Performed By: #### 2 4321-2, 2157-03, ####[facility] LABORATORYCLIA [id number] [address] Creatinine [Mass/Vol] 0.59 mg/dL Normal 0.51-0.95 [facility] Comment on above: Order Comment: Speci men Type: BLOOD SPECIMENOrdering Facility: [facility] Address: [address] [place] [address] Result Comment: Renee ents receiving either N-Acetylcysteine (NAC) or Metamizole prior to venipuncture, may have falsely depressed results. Performed By: #### 2 4321-2, 2157-03, ####[facility] LABORATORYCLIA [id number] [address] ESTIMATED GLOMERULAR FILTRATION RATE 125 mL/min/1.73m??? Normal >=60 [facility] Comment on above: Order Comment: Speci men Type: BLOOD SPECIMENOrdering Facility: [facility] Address: [address] [place] [address] Result Comment: Columba mated Glomerular Filtration Rate (eGFR) is calculated using the 2020 CKD-EPI creatinine equation. This equation utilizes serum creatinine, sex, and age as parameters. The creatinine assay has traceable calibration to isotope dilution-mass spectrometry. Refer to KDIGO guidelines for clinical interpretation. In patients with unstable renal function, e.g. those with acute kidney injury, the eGFR may not accurately reflect actual GFR. Performed By: #### 2 4321-2, 2157-03, 27289-8 ####[facility] LABORATORYCLIA [id number] [place] [address] [place] Glucose [Mass/Vol] 100 mg/dL Normal 70-100 [facility] Comment on above: Order Comment: Shaquille mary Type: BLOOD SPECIMENOrdering Facility: [facility] Address: [address] [place] [address] Result Comment: The Australian Diabetes Association (ADA) provides guidance for cutoff [...] Standards of Medical Care in Diabetes 2016, [place] Diabetes Association. Diabetes Care. 2016.39(Suppl 1). Results may be falsely elevated after the administration of Sulfapyridine. Results may be falsely depressed after the administration of Sulfasalazine. Performed By: #### 2 4321-2, 2157-03, 52489-8 ####[facility] LABORATORYCLIA [id number] [place] [address] [place] Potassium [Moles/Vol] 3.9 mmol/L Normal 3.5-5.1 [facility] Comment on above: Order Comment: Shaquille mary Type: BLOOD SPECIMENOrdering Facility: [facility] Address: [address] [place] [address] Performed By: #### 2 4321-2, 2157-03, 66424-7 ####[facility] LABORATORYCLIA [id number] [place] [address] [place] Sodium [Moles/Vol] 143 mmol/L Normal 136-145 [facility] Comment on above: Order Comment: Shaquille mary Type: BLOOD SPECIMENOrdering Facility: [facility] Address: [address] [place] [address] Performed By: #### 2 4321-2, 2157-03, 47687-9 ####[facility] LABORATORYCLIA [id number] [place] [id number] [place] [facility] Urea nitrogen [Mass/Vol] 10 mg/dL Normal 7-26 [facility] Comment on above: Order Comment: Speci men Type: BLOOD SPECIMENOrdering Facility: [facility] Address: [address] [place] [address] Performed By: #### 2 4321-2, 2157, 09856-6 ####[facility] LABORATORYCLIA [id number] [place] [id number] [facility] [place] CK SerPl-cCncon 05-05-2023 CK [Catalytic activity/Vol] 55 U/L Normal 28-152 [facility] Comment on above: Order Comment: Speci men Type: BLOOD SPECIMENOrdering Facility: [facility] Address: [address] [place] [address] Performed By: #### 2 4321-2, 2157, 01072-9 ####[facility] LABORATORYCLIA [id number] [place] [id number] [facility] CONSULTon 05-05-2023 CONSULT HNO ID: [id number] Author: Alicia Teresa MD Service: Endocrinology Author Type: Physician Type: Consults Filed: 05/05/2023 10:06 AM Note Text: Endocrinology Consult SERVICE DATE: 05/05/2023 SERVICE TIME: 0805 CONSULTING SERVICE: Endocrinology REQUESTING PROVIDER: Consultation requested by Evelyn Padilla APRN.HEALTH CLUB MANAGER DIAGNOSIS: Slade's Disease, hypothyroidism Subjective CHIEF COMPLAINT: Weakness, fatigue, dizziness, abdominal pain HPI: Patient is a 28-year-old female who initially presented to the [facility] emergency department earlier this week for further evaluation of weakness, fatigue, dizziness, and abdominal pain. According to the patient following an unrevealing work-up she was discharged home and given a prescription for meclizine for what the emergency department provider thought was "vertigo". Patient says she took the meclizine as prescribed but did not achieve relief in her symptoms. Patient has known [place]'s Disease and follows with endocrinology in the outpatient setting, had contacted Dr. Pride and was told to return to ER. Patient was found to have elevated liver enzymes, and transfer to [facility] was initiated. Given IV steroids last pm Outpatient regimen includes Florinef 0.1mg daily, dexamethasone 1mg daily Januvia 100mg daily, precose 25mg TID with meals, amaryl 1mg for BS >160 Also with history of total thyroidectomy for graves disease PAST MEDICAL HISTORY Diagnosis Date Anxiety Arthritis [...] Social History Tobacco Use Smoking status: Former Packs/day: 0.50 Years: 8.00 Total pack years: 4.00 Types: Cigarettes Quit date: 10/17/2015 Years since quittin.5 Smokeless tobacco: Never Tobacco comments: quit on 10/17/15 Vaping Use Vaping Use: Never used Substance Use Topics Alcohol use: Not Currently Comment: socially Drug use: Not Currently Comment: CBD products Current Facility-Administered Medications Medication Dose Route Frequency Provider Last Rate Last Admin oxyCODONE IR 5 mg tab(s) (ROXICODONE) 5 mg ORAL q 6 H PRN Jamil Johnson APRN.HEALTH CLUB MANAGER 5 mg at 05/05/23 0550 ondansetron (PF) 4 mg injection (ZOFRAN) 4 mg INTRAVENOUS q 8 H PRN Wood, Jamil R, FIELD RESEARCH ASSISTANT.HEALTH CLUB MANAGER NaCl 0.9% iv infusion 100 mL/hr INTRAVENOUS CONTINUOUS Jose Guadalupe Garcia DO 100 mL/hr at 05/04/23 0820 100 mL/hr at 05/04/23 0820 NaCl 0.9% iv flush bag 20 mL INTRAVENOUS PRN Jose Guadalupe Garcia, hydrocortisone sodium succinate (PF) 50 mg injection (Solu-CORTEF) 50 mg INTRAVENOUS q 6 H Jose Guadalupe Garcia, 50 mg at 05/05/23 0550 HYDROmorphone (PF) 0.2 mg injection (DILAUDID) 0.2 mg INTRAVENOUS q 4 H PRN Jose Guadalupe Garcia, 0.2 mg at 05/05/23 0150 heparin 5,000 Units injection 5,000 Units SUBCUTANEOUS q 12 H Jose Guadalupe Garcia DO 5,000 Units at 05/04/232104 LORazepam 0.5 mg tab(s) (ATIVAN) 0.5 mg ORAL DAILY PRN Jose Guadalupe Garcia DO busPIRone (BUSPAR) tab(s) 15 mg 15 mg ORAL BID Jose Guadalupe Garcia, 15 mg at 05/04/232102 sucralfate 1 g CUP (CARAFATE) 1 g ORAL BID Jose Guadalupe Garcia, 1 g at 05/04/232103 gabapentin 200 mg cap(s) (NEURONTIN) 200 mg ORAL AT BEDTIME Jose Guadalupe Garcia, 200 mg at 05/04/232103 lacosamide 100 mg tab(s) (VIMPAT) 100 mg ORAL BID Jose Guadalupe Garcia, 100 mg at 05/04/232102 scopolamine 1 mg over 3 days 1 Patch (TRANSDERM-SCOP) 1 Patch TRANSDERMAL q 72 HR Jose Guadalupe Garcia DO 1 Patch at 05/03/23 0953 hydrOXYchloroQUINE 200 mg tab(s) (PLAQUENIL) 200 mg ORAL BID Jose Guadalupe Garica, 200 mg at 05/04/232104 albuterol 2.5 mg /3 mL (0.083 %) 2.5 mg (PROVENTIL) 2.5 mg INHALATION q 4 H PRN Jose Guadalupe Garcia, pantoprazole DR 40 mg tab(s) (PROTONIX) 40 mg ORAL DAILY (6 AM) Jose Guadalupe Garcia 40 mg at 05/05/23 055 (more content not included)... Normal [facility] Ceruloplasmin SerPl-mCncon 0 05-05-2023 Ceruloplasmin [Mass/Vol] 20 mg/dL Normal 16-45 [facility] Comment on above: Order Comment: Speci mary Type: BLOOD SPECIMENOrdering Facility: [facility] Address: [address] [place] [address] Performed By: #### 2 064-4 ####[facility] LABCLIA [id number] [facility] [id number] [facility] Hepatic function 2000 panelo n 05-05-2023 Albumin [Mass/Vol] 3.2 g/dL Normal 3.2-5.0 [facility] Comment on above: Order Comment: Nonii mary Type: BLOOD SPECIMENOrdering Facility: [facility] Address: [address] [place] [address] Performed By: #### 2 4321-2, 2157-6, 50300-7 ####[facility] LABORATORYCLIA [id number] [place] [address] [place] ALP [Catalytic activity/Vol] 105 U/L Normal 45-117 [facility] Comment on above: Order Comment: oNnii mary Type: BLOOD SPECIMENOrdering Facility: [facility] Address: [address] [place] [address] Performed By: #### 2 4321-2, 2156, 52250-7 ####[facility] LABORATORYCLIA [id number] [place] [id number] [place] ALT [Catalytic activity/Vol] 629 U/L High 13-61 [facility] Comment on above: Order Comment: Nonii mary Type: BLOOD SPECIMENOrdering Facility: [facility] Address: [address] [place] [address] Result Comment: Resu lts may be falsely depressed after the administration of Sulfasalazine and/or Sulfapyridine. Performed By: #### 2 4321-2, 2157-03, 94771-6 ####[facility] LABORATORYCLIA [id number] [address] [place] [facility] AST [Catalytic activity/Vol] 394 U/L High 8-34 [facility] Comment on above: Order Comment: Speci men Type: BLOOD SPECIMENOrdering Facility: [facility] Address: [address] [place] [address] Result Comment: Resu lts may be falsely depressed after the administration of Sulfasalazine and/or Sulfapyridine. Performed By: #### 2 4321-2, 2157-03, ####[facility] LABORATORYCLIA [id number] [address] [place] Bilirubin [Mass/Vol] 0.5 mg/dL Normal 0.2-1.0 [facility] Comment on above: Order Comment: Speci men Type: BLOOD SPECIMENOrdering Facility: [facility] Address: [address] [place] [address] Performed By: #### 2 4321-2, 2157-03, 87426-6 ####[facility] LABORATORYCLIA [id number] [address] [place] Bilirubin.conjugated [Mass/Vol] 0.1 mg/dL Normal 0.0-0.4 [facility] Comment on above: Order Comment: Speci men Type: BLOOD SPECIMENOrdering Facility: [facility] Address: [address] [place] [address] Performed By: #### 2 4321-2, 2157-03, 30274-7 ####[facility] LABORATORYCLIA [id number] [address] [place] Protein [Mass/Vol] 7.0 g/dL Normal 6.0-8.5 [facility] Comment on above: Order Comment: Speci men Type: BLOOD SPECIMENOrdering Facility: [facility] Address: [address] [place] [address] Performed By: #### 2 4321-2, 2157-03, 67973-6 ####[facility] LABORATORYCLIA [id number] [place] [id number] [place] CBC panel Auto (Bld)on 05-04 Erythrocyte distribution width (RBC) [Ratio] 15.3 % High 11.5-15.0 [facility] Comment on above: Order Comment: Speci men Type: BLOOD SPECIMENOrdering Facility: [facility] Address: [address] [place] [address] Performed By: #### 5 8410-2 ####[facility] LABORATORYCLIA [id number] [address] [place] Hematocrit (Bld) [Volume fraction] 34.0 % Low 36.0-46.0 [facility] Comment on above: Order Comment: Speci men Type: BLOOD SPECIMENOrdering Facility: [facility] Address: [address] [place] [address] Performed By: #### 5 8410-2 ####[facility] LABORATORYCLIA [id number] [address] [place] Hemoglobin (Bld) [Mass/Vol] 11.0 g/dL Low 11.5-15.5 [facility] Comment on above: Order Comment: Speci men Type: BLOOD SPECIMENOrdering Facility: [facility] Address: [address] [place] [address] Performed By: #### 5 8410-2 ####[facility] LABORATORYCLIA [id number] [address] [place] MCH (RBC) [Entitic mass] 26.8 pg Normal 26.0-34.0 [facility] Comment on above: Order Comment: Speci men Type: BLOOD SPECIMENOrdering Facility: [facility] Address: [address] [place] [address] Performed By: #### 5 8410-2 ####[facility] LABORATORYCLIA [id number] [address] [place] MCHC (RBC) [Mass/Vol] 32.4 g/dL Normal 30.5-36.0 [facility] Comment on above: Order Comment: Speci men Type: BLOOD SPECIMENOrdering Facility: [facility] Address: [address] Performed By: #### 5 8410-2 ####[facility] LABORATORYCLIA [id number] [place] [address] [place] MCV (RBC) [Entitic vol] 82.9 fL Normal 80.0-100.0 [facility] Comment on above: Order Comment: Speci men Type: BLOOD SPECIMENOrdering Facility: [facility] Address: [address] Performed By: #### 5 8410-2 ####[facility] LABORATORYCLIA [id number] [place] [address] [place] Nucleated RBC (Bld) [#/Vol] 10*3/uL Normal <0.01 [facility] Comment on above: Order Comment: Speci men Type: BLOOD SPECIMENOrdering Facility: [facility] Address: [address] Performed By: #### 5 8410-2 ####[facility] LABORATORYCLIA [id number] [place] [address] [place] Platelet mean volume (Bld) [Entitic vol] 9.0 fL Normal 9.0-12.7 [facility] Comment on above: Order Comment: Speci men Type: BLOOD SPECIMENOrdering Facility: [facility] Address: [address] Performed By: #### 5 8410-2 ####[facility] LABORATORYCLIA [id number] [place] [address] [place] Platelets (Bld) [#/Vol] 361 10*3/uL Normal 150-400 [facility] Comment on above: Order Comment: Speci men Type: BLOOD SPECIMENOrdering Facility: [facility] Address: [address] Performed By: #### 5 8410-2 ####[facility] LABORATORYCLIA [id number] [place] [address] [facility] [place] RBC (Bld) [#/Vol] 4.10 10*6/uL Normal 3.90-5.20 [facility] Comment on above: Order Comment: Speci men Type: BLOOD SPECIMENOrdering Facility: [facility] Address: [address] [place] [address] Performed By: #### 5 8410-2 ####[facility] LABORATORYCLIA [id number] [place] [id number] [facility] WBC (Bld) [#/Vol] 10.78 10*3/uL Normal 3.70-11.00 [facility] Comment on above: Order Comment: Speci men Type: BLOOD SPECIMENOrdering Facility: [facility] Address: [address] [place] [address] Performed By: #### 5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 SerPl-mCncon 05-03-20 23 Cortisol [Mass/Vol] 0.6 ug/dL Low 3.4-22.5 [facility] Comment on above: Order Comment: Speci mary Type: BLOOD SPECIMENOrdering Facility: [facility] Address: [address] [place] [address] Result Comment: PM: Approximately half of A.M. values Performed By: #### 2 2314-9, 57237-4, 2142-6, 5194-3 ####[facility] [id number] [address] HAV IgM Ser Qlon 05-03-2023 HAV IgM Ql (S) Non-Reactive Normal Nonreactive, Equivocal [facility] Comment on above: Order Comment: [facility] Type: BLOOD SPECIMEN Ordering Facility: [facility] Address: [address] [place] [address] Result Comment: Resu lts were obtained with the [employer] FIMA IM IgM assay. Values obtained with different manufactures' assay methods may not be used interchangeably. Assay performance characteristics have not been established for immunocompromised or immunosuppressed patients, cord blood, or patients less than 2 years of age. These results may be falsely depressed in the presence of Biotin concentrations above 500 ng/mL. Performed By: #### 2 2314-9, 32354-6, 3-6, 5195-3 #### [facility] CLIA [id number] [address] [place] [address] [place] HBV core IgM Ser Qlon 2022 HBV core IgM Ql (S) Non-Reactive Normal Nonreact rylan, Equivocal [facility] Comment on above: Order Comment: Shaquille hernandez Type: BLOOD SPECIMEN Ordering Facility: [facility] Address: [address] Result Comment: Resu lts were obtained with the [employer] IM IgM assay. Values obtained with different manufactures' assay methods may not be used interchangeably. Performed By: #### 2 2314-9, 85430-6, 2142-6, 5195-3 #### [facility] CLIA [id number] [address] [place] HBV surface Ag Ser Qlon 04-22 HBV surface Ag Ql (S) Non-Reactive Normal Equivo william, Nonreactive [facility] Comment on above: Order Comment: Speci mary Type: BLOOD SPECIMENOrdering Facility: [facility] Address: [address] [address] Result Comment: Resu lts were obtained with the [employer] IM IgM assay. Values obtained with different manufactures' assay methods may not be used interchangeably. Performed By: #### 2 2314-9, 77984-4, 2142-6, 5-3 ####[facility] [id number] [address] [id number] [facility] [place] HCV RNA SerPl PINKY+probe-aCnc on 05-03-2023 HCV RNA PINKY+probe Qn Not detected Normal HCV RNA not detected by PCR. [facility] Comment on above: Order Comment: Speci men Type: BLOOD SPECIMENOrdering Facility: [facility] Address: [address] Performed By: #### 1 1011-4 ####[facility] [id number] [facility] [id number] [place], [place] [address] [place] HISTORY PHYSICALon HISTORY PHYSICAL HNO ID: [id number] Author: Jose Guadalupe Garcia DO Service: Hospital Medicine Author Type: Physician Type: HANDP Filed: 05/03/2023 9:08 AM Note Text: HISTORY AND PHYSICAL SERVICE DATE: 05/03/2023 SERVICE TIME: 8:12 AM PRIMARY CARE PHYSICIAN: Isaias Bradley MD Subjective CHIEF COMPLAINT: Weakness, fatigue, dizziness, abdominal pain HPI: Patient is a 28-year-old female who initially presented to the [facility] emergency department earlier this week for further evaluation of weakness, fatigue, dizziness, and abdominal pain. According to the patient following an unrevealing work-up she was discharged home and given a prescription for meclizine for what the emergency department provider thought was "vertigo". Patient says she took the meclizine as prescribed but did not achieve relief in her symptoms. Patient has known Wabasso's Disease and follows with endocrinology in the outpatient setting. 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 Work-up in the [facility] emergency department yesterday revealed elevation in liver enzymes within ALT of 711 and AST of 466. Total bilirubin was within normal limits. Patient tells me that imaging was obtained and was found to be unrevealing. (It does not appear that information was sent here with the patient in her packet.) In light of her elevated liver enzymes the decision was made to transfer the patient here to [facility]. PAST MEDICAL HISTORY: Systemic lupus erythematosus (SLE) Wabasso's disease Graves' disease Paroxysmal nonepileptic seizures (PNES) Bipolar disorder Depression Anxiety Post-traumatic stress disorder (PTSD) Obsessive-compulsive disorder PAST SURGICAL HISTORY: Appendectomy Colonoscopy Cholecystectomy EGD with banding of varices Hysterectomy Tooth extraction Thyroidectomy FAMILY HISTORY: Mother: bipolar disorder SOCIAL HISTORY: Denies tobacco, EtOH, and illicits MEDICATIONS: estradiol (CLIMARA) 0.0375 mg/24 hr, Apply 1 Patch as directed one time a week., Disp: 4 Patch, Rfl: 1 clomiPRAMINE (ANAFRANIL) 50 mg capsule, Take 2 capsules by mouth daily at bedtime., Disp: 60 capsule, Rfl: 1 busPIRone (BUSPAR) 15 mg tablet, Take 1 tablet by mouth twice daily., Disp: 60 tablet, Rfl: 5 sertraline (ZOLOFT) 50 mg tablet, Take 1 tablet by mouth once daily. Take 1/2 tab once a day orally for one week then 1 tab once a day, Disp: 90 tablet, Rfl: 1 LORazepam (ATIVAN) 0.5 mg, Take 1 tablet by mouth once daily as needed for up to 30 days., Disp: 30 tablet, Rfl: 0 lacosamide (VIMPAT) 100 mg tab, Take 1 tablet by mouth twice daily for 30 days., Disp: 60 tablet, Rfl: 2 dexAMETHasone (DECADRON) 1 mg tablet, Take 1 tablet by mouth daily with breakfast., Disp: 90 tablet, Rfl: 2 eletriptan (RELPAX) 40 mg tablet, At migraine onset. may repeat in 2 hours if necessary, Disp: 12 tablet, Rfl: 5 sucralfate (CARAFATE) 100 mg/mL suspension, Take 1 g by mouth twice daily., Disp: , Rfl: promethazine (PHENERGAN) 25 mg tablet, Take 1 tablet by mouth every 6 hours as needed for nausea/vomiting., Disp: , Rfl: glimepiride (AMARYL) 1 mg tablet, Take 1 tablet by mouth as directed. take if BG >160, Disp: , Rfl: albuterol HFA (PROAIR HFA) 90 mcg/actuation inhaler, Inhale 2 Puffs as instructed every 4 hours as needed for wheezing/shortness of breath., Disp: , Rfl: oxybutynin (DITROPAN) 5 mg tablet, Take 1 tablet by mouth three times daily as needed., Disp: , Rfl: tiZANidine HCl (ZANAFLEX) 4 mg capsule, Take 1 capsule by mouth three times daily as needed. Hold flexeril while on meds, Disp: 20 capsule, Rfl: 0 hydrOXYchloroQUINE (PLAQUENIL) 200 mg tablet, Take 1 tablet by mouth twice daily., Disp: 60 tablet, Rfl: 2 gabapentin (NEURONTIN) 100 mg capsule, One po q hs for one week, and then increase to BID. (Patient taking differently: Take 200 mg by mouth daily at bedtime. One po q hs for one week, and then increase to BID.), Disp: 60 capsule, Rfl: [address] (PROTONIX) 40 mg tablet, Take 1 tablet by mouth DAILY (6 AM)., Disp: 30 tablet, Rfl: 5 SITagliptin phosphate (JANUVIA) 100 mg tablet, Take 1 tablet by mouth once daily., Disp: 90 tablet, Rfl: 3 Syringe with Needle, Disp, (BD TUBERCULIN SYRINGE) 1 mL 27 x 1/2", 1 Each three times daily., Disp: 300 Each, Rfl: 3 levothyroxine (SYNTHROID) 125 mcg tablet, Take 1 tablet by mouth once daily., Disp: 90 tablet, Rfl: 3 fludrocortisone (FLORINEF) 0.1 mg tablet, Take 1 tablet by mouth once daily., Disp: 90 tablet, Rfl: 3 Blood-Glucose Meter, Use to check blood sugar 3-4 times daily., Disp: 1 Each, Rfl: 1 Lancets lancets, Use as instructed, Disp: 300 Each, Rfl: 3 blood sugar diagnostic (BLOOD GLUCOSE TEST) test strip, Use as instructed, Disp: 300 Strip, Rfl: 3 acetaminophen (TYLENOL) 500 mg ta (more content not included)... Normal [facility] UA DIP, URINE (POC)on 2022 BILIRUBIN UA (POCT) Negative Negative [facility] CLARITY UA (POCT) Clear [facility] COLOR UA (POCT) Yellow [facility] GLUCOSE UA (POCT) Negative Negative mg/dL [facility] HEMOGLOBIN/BLOOD UA (POCT) Moderate Abnormal Negative [facility] KETONE UA (POCT) Negative Negative mg/dL [facility] LEUKOCYTES UA (POCT) Trace Abnormal Negative [facility] NITRITE UA (POCT) Negative Negative [facility] PH UA (POCT) 5.5 4.5 - 8.0 [facility] Protein Ql (U) Negative Negative mg/dL [facility] SPECIFIC GRAVITY UA (POCT) 1.025 1.005 - 1.030 [facility] UROBILINOGEN UA (POCT) 0.2 E.U./dL Viji l E.U./dL [facility] CNOVon 03-16-2023 CNOV Office Visit (SPAGWO ) NESSASONIA ([id number]) 1995 F Date Time Provider Department 03/16/23 11:00 AM DARRICK CHAVEZ During your visit today, we recorded the following information about you: Pulse Respiration Normal [facility] Absolute lymphocyte countOrd ered By: Migel Luis on 02-23-2023 Lymphocytes Auto (Unsp spec) [#/Vol] 2.51 10*3/uL 0.83-4.51 [facility] Basophil percentageOrdered B y: Migel Luis on 02-23-2023 Basophil percentage 0 SEEN /hpf 0-5 [facility] Basophils/100 WBC (Bld) 0.5 % 0-1 [facility] Bilirubin [Mass/Vol] 0.70 mg/dL 0.20-1.00 [facility] Comment on above: For patients on eltr ombopag therapy, use of Dimension [place] TBIL is not recommended. Chloride [Moles/Vol] 104 mmol/L 98-107 [facility] Eosinophils/100 WBC (Bld) 0.9 % 0-5 [facility] Glucose [Mass/Vol] 87 mg/dL 74-106 [facility] Neutrophils (Bld) [#/Vol] 4.2 10*3/uL 2.0-7.7 [facility] Neutrophils/100 WBC (Bld) 55.8 % 47-70 [facility] Potassium [Moles/Vol] 3.5 mmol/L 3.5-5.1 [facility] Protein [Mass/Vol] 8.4 g/dL 6.4-8.2 [facility] Sodium [Moles/Vol] 140 mmol/L 136-145 [facility] WBC (Bld) [#/Vol] 7.6 10*3/uL 4.4-11.0 [facility] Bilirubin Test strip Ql (U)O rdered By: Migel Luis on 02-23-2023 Bilirubin Ql (U) Negative Negative [facility] Blood erythrocytes count (nu mber/volume)Ordered By: Migel Luis on 02-23-2023 RBC (Bld) [#/Vol] 4.60 10*6/uL 4.2-5.4 [facility] Blood hemoglobin measurement (mass/volume)Ordered By: Migel Luis on 02-23-2023 Hemoglobin (Bld) [Mass/Vol] 11.7 g/dL 12.0-15.0 [facility] Blood lymphocytes/100 leukoc ytesOrdered By: Migel Luis on 02-23-2023 Lymphocytes/100 WBC (Bld) 33.2 % 19-41 [facility] Blood monocytes/100 leukocyt esOrdered By: Migel Luis on 02-23-2023 Monocytes/100 WBC (Bld) 9.3 % 0-10 [facility] Blood platelet mean volumeOr dered By: Migel Luis on 02-23-2023 Platelet mean volume (Bld) [Entitic vol] 10.2 fL 6.2-12.0 [facility] CNPNon 02-23-2023 CNPN Telephone (NEADFV) SONIA SZYMANSKI ([id number]) 1995 F Date Time Provider Department 02/23/23 ALIX DANIELLE During your visit today, we recorded the following information about you: Penny Lawrence 02/23/2023 4:30 PM Signed Received call from doctor at [facility] wanting to let provider know that patient was in ER today for having a seizure. She was also admitted back on February 14 for seizures and her medication switched from depakote to vimpat. He states that patient is unable to get appt till end of March and just wants to update provider on patient and if maybe she should be seen sooner. Dana Wilkins 03/02/2023 9:40 AM Signed Message from provider states: last saw her I have never seen her for seizures. She needs an appointment with me or any other neurologist specifically for that.LC " Allergies As of Date: 02/23/2023 Noted Allergy Reaction PREDNISONE 12/23/2015 10 - Anaphylaxis Comments: Had at the same time as Denisetrinidad - unsure which caused the anaphylaxis [id number] [id number] 02/27/2017 10 - Anaphylaxis EXCEDRIN (ACETAMINOPHEN-CAFFEINE ) 06/05/2013 7 - Swelling Comments: Mouth, can take tylenol LATEX 07/08/2014 2 - Rash 4 - Hives Comments: at site NEOSPORIN ([id number] *04/21/2014 4 - Hives VOLTAREN (DICLOFENAC SODIUM) 09/29/2014 14 - Other: See Comments Comments: Nausea ZITHROMAX (AZITHROMYCIN) 07/30/2014 10 - Anaphylaxis Comments: Hospitalized on 07/03/14 for this Date Reviewed: 02/16/2023 Reviewed by: Fatoumata Richardson LPN - Fully Assessed Reason for Visit: Patient Update [1234] Prescriptions as of 2023 - dexAMETHasone (DECADRON) 1 mg tablet Take 1 tablet by mouth daily with breakfast. - clomiPRAMINE (ANAFRANIL) 50 mg capsule Take 2 capsules by mouth daily at bedtime. - busPIRone (BUSPAR) 15 mg tablet Take 1 tablet by mouth twice daily. - LORazepam (ATIVAN) 0.5 mg Take 1 tablet by mouth once daily as needed for up to 30 days. Do not start before March 03, 2023. - estradiol (CLIMARA) 0.0375 mg/24 hr Apply 1 Patch as directed one time a week. - eletriptan (RELPAX) 40 mg tablet At migraine onset. may repeat in 2 hours if necessary - sucralfate (CARAFATE) 100 mg/mL suspension Take 1 g by mouth twice daily. - lacosamide (VIMPAT) 100 mg tab Take 1 tablet by mouth twice daily for 30 days. Do not start before February 08, 2023. - promethazine (PHENERGAN) 25 mg tablet Take 1 tablet by mouth every 6 hours as needed for nausea/vomiting. - glimepiride (AMARYL) 1 mg tablet Take 1 tablet by mouth as directed. take if BG >160 - albuterol HFA (PROAIR HFA) 90 mcg/actuation inhaler Inhale 2 Puffs as instructed every 4 hours as needed for wheezing/shortness of breath. - cyclobenzaprine (FLEXERIL) 10 mg tablet Take 1 tablet by mouth three times daily as needed for muscle spasm. - oxybutynin (DITROPAN) 5 mg tablet Take 1 tablet by mouth three times daily as needed. - tiZANidine HCl (ZANAFLEX) 4 mg capsule Take 1 capsule by mouth three times daily as needed. Hold flexeril while on meds - hydrOXYchloroQUINE (PLAQUENIL) 200 mg tablet Take 1 tablet by mouth twice daily. - gabapentin (NEURONTIN) 100 mg capsule One po q hs for one week, and then increase to BID. - pantoprazole DR (PROTONIX) 40 mg tablet Take 1 tablet by mouth DAILY (6 AM). - SITagliptin phosphate (JANUVIA) 100 mg tablet Take 1 tablet by mouth once daily. - Syringe with Needle, Disp, (BD TUBERCULIN SYRINGE) 1 mL 27 x 1/2" 1 Each three times daily. - levothyroxine (SYNTHROID) 125 mcg tablet Take 1 tablet by mouth once daily. - Food Supplement, Lactose-Free (NUTRITIONAL DRINK) liqd Take 237 mL by mouth three times daily with meals. - fludrocortisone (FLORINEF) 0.1 mg tablet Take 1 tablet by mouth once daily. - Blood-Glucose Meter Use to check blood sugar 3-4 times daily. - Lancets lancets Use as instructed - blood sugar diagnostic (BLOOD GLUCOSE TEST) test strip Use as instructed - acetaminophen (TYLENOL) 500 mg tablet 2 tablets by ORAL/FEEDING TUBE route every 8 hours as needed for pain. - alcohol swabs 3x/d - scopolamine (TRANSDERM-SCOP) patch 1.5 mg/72 hr (delivers 1 mg over 3 days) Apply 1 Patch as directed every 72 hours. As needed for nausea - acarbose (PRECOSE) 25 mg tablet Take 1 tablet by mouth three times daily. - glucagon (GVOKE HYPOPEN 2-PACK) 1 mg/0.2 mL AutoInjector Inject 1 mg subcutaneously as needed. - albuterol (PROVENTIL) 2.5 mg /3 mL (0.083 %) nebulizer solution Use 3 mL via nebulizer every 4 hours as needed for wheezing/shortness of breath. Use over 5-15minutes. Problem List As Of Date 02/23/2023 Noted Resolved Epiglottitis [J05.10] 07/03/2014 07/30/2014 Graves disease [E05.00] 12/23/2015 Post-surgical hypothyroidism [E89.0] 05/30/2016 Asthma [J45.909] Abdominal cramping [R10.9] 06/27/2017 07/20/2021 Migraines [G4 (more content not included)... Normal [facility] Determination of erythrocyte mean corpuscular volume (MCV)Ordered By: Migel Luis on 02-23-2023 MCV (RBC) [Entitic vol] 84.3 fL 81-99 [facility] Hematocrit Auto (Bld) [Volum e fraction]Ordered By: Migel Luis on 02-23-2023 Hematocrit (Bld) [Volume fraction] 38.8 % 37-47 [facility] Ketones Test strip Ql (U)Ord ered By: Migel Luis on 02-23-2023 Ketones Ql (U) Negative Negative [facility] Laboratory - Chemistry and C hemistry - challengeOrdered By: Migel Luis on 02-23-2023 ALP [Catalytic activity/Vol] 79 U/L 45-117 [facility] ALT [Catalytic activity/Vol] 67 U/L 13-56 [facility] CO2 [Moles/Vol] 26.0 mmol/L 21.0-32.0 [facility] Globulin (S) [Mass/Vol] 4.6 g/dL 2.2-4.2 [facility] Urea nitrogen/Creatinine [Mass ratio] 9.7 mg/mg 10-20 [facility] Laboratory - Hematology and Cell countsOrdered By: Migel Luis on 02-23-2023 Erythrocyte distribution width (RBC) [Entitic vol] 48.0 fL 35.1-43.9 [facility] Erythrocyte distribution width (RBC) [Ratio] 15.7 % 11.6-14.6 [facility] Immature granulocytes/100 WBC (Bld) 0.300 % 0.0-0.9 [facility] Comment on above: IG% - Immature Granu locytes (promyelocytes, myelocytes and metamyelocytes) > 1% indicates that a LEFT SHIFT is Present. MCH (RBC) [Entitic mass] 25.4 pg 27.0-32.0 [facility] Nucleated RBC/100 WBC (Bld) [Ratio] 0 % 0-5 [facility] MCHC Auto (RBC) [Mass/Vol]Or dered By: Migel Luis on 02-23-2023 MCHC (RBC) [Mass/Vol] 30.2 g/dL 32-36 [facility] Mucus LM Ql (Urine sed)Order ed By: Migel Luis on 02-23-2023 Mucus Ql (Urine sed) 0 SEEN /hpf [facility] Nitrite Test strip Ql (U)Ord ered By: Migel Luis on 02-23-2023 Nitrite Ql (U) Negative Negative [facility] No Panel InformationOrdered By: Migel Luis on 02-23-2023 Estimated Creatinine Clearance Calc 89.99 ml/min [facility] Estimated GFR (MDRD) Amer 104 mL/min >60 [facility] Comment on above: GFR Calc Estimated GFR (MDRD) Non-Af Amer 86 mL/min >60 [facility] Comment on above: Non- GFR Calc Platelets bldOrdered By: Ning Luis on 02-23-2023 Platelets (Bld) [#/Vol] 387 10*3/uL 150-450 [facility] Protein Test strip Ql (U)Ord ered By: Migel Luis on 02-23-2023 Protein Ql (U) Negative Negative [facility] Serum or plasma albumin evert urement (mass/volume)Ordered By: Migel Luis on 02-23-2023 Albumin [Mass/Vol] 3.8 g/dL 3.2-5.0 [facility] Serum or plasma albumin/glob ulin mass ratioOrdered By: Migel Luis on 02-23-2023 Albumin/Globulin [Mass ratio] 0.8 {ratio} 0.9-2.4 [facility] Serum or plasma calcium evert urement (mass/volume)Ordered By: Migel Luis on 02-23-2023 Calcium [Mass/Vol] 9.4 mg/dL 8.5-10.1 [facility] Serum or plasma creatinine m easurement (mass/volume)Ordered By: Migel Luis on 02-23-2023 Creatinine [Mass/Vol] 0.83 mg/dL 0.55-1.02 [facility] Comment on above: The validity of the calculated GFR & GFRAA in patients over 70 years has not been determined. Clinical correlation is essential. Serum or plasma urea nitroge n measurement (mass/volume)Ordered By: Migel Luis on 02-23-2023 Urea nitrogen [Mass/Vol] 8 mg/dL 7-18 [facility] Squamous epithelial cells de tection in urine sediment by light microscopyOrdered By: Migel Luis on 02-23-2023 Epithelial cells.squamous LM Ql (Urine sed) 0 SEEN /hpf 5-10 [facility] Thin prep Papanicolaou smear with manual screeningOrdered By: Migel Luis on 02-23-2023 Thin prep Papanicolaou smear with manual screening 19 U/L 15-37 [facility] Thin prep Papanicolaou smear with manual screening 10 5-15 [facility] Urine blood detectionOrdered By: Migel Luis on 02-23-2023 RBC Ql (U) 25 /ul Negative [facility] RBC Ql (U) 0-5 SEEN /hpf 0-5 [facility] Urine clarityOrdered By: Ning Luis on 02-23-2023 Clarity (U) Clear Clear [facility] Urine color determinationOrd ered By: Migel Luis on 02-23-2023 Color (U) Yellow Yellow [facility] Urine glucose detectionOrder ed By: Migel Luis on 02-23-2023 Glucose Ql (U) Normal mg/dl Normal [facility] Urine leukocyte esterase det ection by dipstickOrdered By: Migel Luis on 02-23-2023 Leukocyte esterase Test strip Ql (U) 25 /ul Negative [facility] Urine pHOrdered By: Migel coles on 02-23-2023 pH (U) 7.0 [pH] 5.0 - 8.0 [facility] Urine sediment bacteria coun t by microscopy (number/high power field)Ordered By: Migel Luis on 02-23-2023 Bacteria LM.HPF (Urine sed) [#/Area] 0 /[HPF] None Seen [facility] Urine specific gravity measu rementOrdered By: Migel Luis on 02-23-2023 Specific gravity (U) [Rel density] 1.010 1.002-1.030 [facility] Urobilinogen Auto test strip Ql (U)Ordered By: Migel Luis on 02-23-2023 Urobilinogen Ql (U) Normal mg/dl Normal [facility] Absolute lymphocyte countOrd ered By: ED PROVIDER on 02-14-2023 Lymphocytes Auto (Unsp spec) [#/Vol] 2.46 10*3/uL 0.83-4.51 [facility] Basophil percentageOrdered B y: ED PROVIDER on 02-14-2023 Basophil percentage 0 SEEN /hpf 0-5 [facility] Basophils/100 WBC (Bld) 0.6 % 0-1 [facility] Bilirubin [Mass/Vol] 0.30 mg/dL 0.20-1.00 [facility] Comment on above: For patients on eltr ombopag therapy, use of Dimension [place] TBIL is not recommended. Chloride [Moles/Vol] 104 mmol/L 98-107 [facility] Eosinophils/100 WBC (Bld) 2.1 % 0-5 [facility] Glucose [Mass/Vol] 142 mg/dL 74-106 [facility] Comment on above: Fasting Glucose resu lt greater than or equal to 126 mg/dL suggests DIABETES MELLITUS per A.D.A. criteria. Neutrophils (Bld) [#/Vol] 4.2 10*3/uL 2.0-7.7 [facility] Neutrophils/100 WBC (Bld) 54.1 % 47-70 [facility] Potassium [Moles/Vol] 4.5 mmol/L 3.5-5.1 [facility] Comment on above: Moderate Hemolysis, Result may be falsely increased. Protein [Mass/Vol] 8.0 g/dL 6.4-8.2 [facility] Sodium [Moles/Vol] 137 mmol/L 136-145 [facility] WBC (Bld) [#/Vol] 7.7 10*3/uL 4.4-11.0 [facility] Beta hCG serum qualOrdered B y: ED PROVIDER on 02-14-2023 Beta HCG ( test) Ql Negative [facility] Bilirubin Test strip Ql (U)O rdered By: ED PROVIDER on 02-14-2023 Bilirubin Ql (U) Negative Negative [facility] Blood erythrocytes count (nu mber/volume)Ordered By: ED PROVIDER on 02-14-2023 RBC (Bld) [#/Vol] 4.37 10*6/uL 4.2-5.4 [facility] Blood hemoglobin measurement (mass/volume)Ordered By: ED PROVIDER on 02-14-2023 Hemoglobin (Bld) [Mass/Vol] 11.6 g/dL 12.0-15.0 [facility] Blood lymphocytes/100 leukoc ytesOrdered By: ED PROVIDER on 02-14-2023 Lymphocytes/100 WBC (Bld) 31.9 % 19-41 [facility] Blood monocytes/100 leukocyt esOrdered By: ED PROVIDER on 02-14-2023 Monocytes/100 WBC (Bld) 10.5 % 0-10 [facility] Blood platelet mean volumeOr dered By: ED PROVIDER on 02-14-2023 Platelet mean volume (Bld) [Entitic vol] 9.3 fL 6.2-12.0 [facility] Determination of erythrocyte mean corpuscular volume (MCV)Ordered By: ED PROVIDER on 02-14-2023 MCV (RBC) [Entitic vol] 82.6 fL 81-99 [facility] Hematocrit Auto (Bld) [Volum e fraction]Ordered By: ED PROVIDER on 02-14-2023 Hematocrit (Bld) [Volume fraction] 36.1 % 37-47 [facility] Ketones Test strip Ql (U)Ord ered By: ED PROVIDER on 02-14-2023 Ketones Ql (U) Negative Negative [facility] Laboratory - Chemistry and C hemistry - challengeOrdered By: Dr. Corrales on 02-14-2023 Lipase [Catalytic activity/Vol] 26 U/L 13-75 [facility] Comment on above: Please note:LIPASE r evised reference range effective 23. New Lipase methodology. Expected to produce lower values than the previous assay method. NEW Reference Range: 13 - 75 U/L Laboratory - Chemistry and C hemistry - challengeOrdered By: ED PROVIDER on 02-14-2023 ALP [Catalytic activity/Vol] 76 U/L 45-117 [facility] ALT [Catalytic activity/Vol] 190 U/L 13-56 [facility] CO2 [Moles/Vol] 27.0 mmol/L 21.0-32.0 [facility] Globulin (S) [Mass/Vol] 4.6 g/dL 2.2-4.2 [facility] Urea nitrogen/Creatinine [Mass ratio] 8.0 mg/mg 10-20 [facility] Laboratory - Hematology and Cell countsOrdered By: ED PROVIDER on 02-14-2023 Erythrocyte distribution width (RBC) [Entitic vol] 46.8 fL 35.1-43.9 [facility] Erythrocyte distribution width (RBC) [Ratio] 15.5 % 11.6-14.6 [facility] Immature granulocytes/100 WBC (Bld) 0.800 % 0.0-0.9 [facility] Comment on above: IG% - Immature Granu locytes (promyelocytes, myelocytes and metamyelocytes) > 1% indicates that a LEFT SHIFT is Present. MCH (RBC) [Entitic mass] 26.5 pg 27.0-32.0 [facility] Nucleated RBC/100 WBC (Bld) [Ratio] 0 % 0-5 [facility] MCHC Auto (RBC) [Mass/Vol]Or dered By: ED PROVIDER on 02-14-2023 MCHC (RBC) [Mass/Vol] 32.1 g/dL 32-36 [facility] Mucus LM Ql (Urine sed)Order ed By: ED PROVIDER on 02-14-2023 Mucus Ql (Urine sed) 0 SEEN /hpf [facility] Nitrite Test strip Ql (U)Ord ered By: ED PROVIDER on 02-14-2023 Nitrite Ql (U) Negative Negative [facility] No Panel InformationOrdered By: Dr. Corrales on 02-14-2023 Hepatitis A IgM Antibody Negative Negative [facility] Hepatitis B Core IgM Antibody Negative Negative [facility] Hepatitis C Antibody (EIA) Non-Reactive Non Reactive [facility] Hepatitis C Antibody Comment Comment . [facility] Comment on above: Not infected with HC V unless early or acute infection issuspected (which may be delayed in an immunocompromisedindividual), or other evidence exists to indicate HCVinfection.Performed at: [email or web address] [id number] Director: Jaime Woods PhD, Phone: [phone] No Panel InformationOrdered By: ED PROVIDER on 02-14-2023 Estimated Creatinine Clearance Calc 85.85 ml/min [facility] Estimated GFR (MDRD) Amer 98 mL/min >60 [facility] Comment on above: GFR Calc Estimated GFR (MDRD) Non-Af Amer 81 mL/min >60 [facility] Comment on above: Non- GFR Calc Platelets bldOrdered By: ED PROVIDER on 02-14-2023 Platelets (Bld) [#/Vol] 379 10*3/uL 150-450 [facility] Protein Test strip Ql (U)Ord ered By: ED PROVIDER on 02-14-2023 Protein Ql (U)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 Alcohol use: Not Currently Comment: socially Drug use: Not Currently Comment: CBD products HOME MEDICATIONS: clomiPRAMINE (ANAFRANIL) 75 mg capsule, Take 1 capsule by mouth daily at bedtime., Disp: 30 capsule, Rfl: 1 LORazepam (ATIVAN) 0.5 mg, Take 1 tablet by mouth once daily as needed for up to 30 days., Disp: 30 tablet, Rfl: 0 busPIRone (BUSPAR) 15 mg tablet, Take 1 tablet by mouth twice daily., Disp: 60 tablet, Rfl: 1 tiZANidine HCl (ZANAFLEX) 4 mg capsule, Take 1 capsule by mouth three times daily as needed. Hold flexeril while on meds, Disp: 20 capsule, Rfl: 0 hydrOXYchloroQUINE (PLAQUENIL) 200 mg tablet, Take 1 tablet by mouth twice daily., Disp: 60 tablet, Rfl: 2 gabapentin (NEURONTIN) 100 mg capsule, One po q hs for one week, and then increase to BID., Disp: 60 capsule, Rfl: 2 eletriptan (RELPAX) 40 mg tablet, At migraine onset. may repeat in 2 hours if necessary, Disp: 12 tablet, Rfl: [address] (PROTONIX) 40 mg tablet, Take 1 tablet by mouth DAILY (6 AM)., Disp: 30 tablet, Rfl: 5 SITagliptin phosphate (JANUVIA) 100 mg tablet, Take 1 tablet by mouth once daily., Disp: 90 tablet, Rfl: 3 promethazine (PHENERGAN) 25 mg tablet, Take 1 tablet by mouth every 6 hours as needed. (Patient taking differently: Take 25 mg by mouth every 6 hours as needed for nausea/vomiting.), Disp: 30 tablet, Rfl: 0 levothyroxine (SYNTHROID) 125 mcg tablet, Take 1 tablet by mouth once daily., Disp: 90 tablet, Rfl: 3 estradiol (CLIMARA) 0.0375 mg/24 hr, Apply 1 Patch as directed one time a week., Disp: 4 Patch, Rfl: 1 Food Supplement, Lactose-Free (NUTRITIONAL DRINK) liqd, Take 237 mL by mouth three times daily with meals., Disp: 23223 mL, Rfl: 5 cyclobenzaprine (FLEXERIL) 10 mg tablet, Take 1 tablet by mouth three times daily as needed. (Patient taking differently: Take 10 mg by mouth three times daily as needed for muscle spasm.), Disp: 30 tablet, Rfl: 2 fludrocortisone (FLORINEF) 0.1 mg tablet, Take 1 tablet by mouth once daily., Disp: 90 tablet, Rfl: 3 glimepiride (AMARYL) 1 mg tablet, Take 1 tablet by mouth once daily. (Patient taking differently: Take 1 mg by mouth as directed. take if BG >160), Disp: 90 tablet, Rfl: [address] (DEPAKOTE) 250 mg EC tablet, Take 1 tablet by mouth (more content not included)... Normal [facility] Iron and Iron binding capaci ty panelon 02-05-2023 Iron [Mass/Vol] 90 ug/dL Normal 41-186 [facility] Comment on above: Order Comment: Speci men Type: BLOOD SPECIMEN Ordering Facility: [facility] Address: [address] [place] [address] Performed By: #### 2 276-4, 79676-8, 3034-6, 59059-2 #### [facility] CLIA [id number] [address] [place] [address] [place] [facility] Iron binding capacity [Mass/Vol] 285 ug/dL Normal 232-386 [facility] Comment on above: Order Comment: Speci men Type: BLOOD SPECIMEN Ordering Facility: [facility] Address: [address] [place] [address] Performed By: #### 2 276-4, 60507-7, 3034-6, 39895-5 #### [facility] CLIA [id number] [address] [place] [address] [place] Iron saturation [Mass fraction] 31.6 % Normal 15.0-57.0 [facility] Comment on above: Order Comment: Speci men Type: BLOOD SPECIMEN Ordering Facility: [facility] Address: [address] [place] [address] Performed By: #### 2 276-4, 14122-9, 3034-6, 31570-5 #### [facility] CLIA [id number] [address] [place] [address] [place] Transferrin SerPl-mCncon Transferrin [Mass/Vol] 242 mg/dL Normal 200-360 [facility] Comment on above: Order Comment: Speci men Type: BLOOD SPECIMEN Ordering Facility: [facility] Address: [address] [place] [address] Performed By: #### 2 276-4, 26127-6, 3034-6, 14560-2 #### [facility] CLIA [id number] [address] [place] [address] [place] Basophil percentageOrdered B y: Dr. Anna on 02-04-2023 Basophil percentage 0-5 SEEN /hpf 0-5 [facility] Bilirubin [Mass/Vol] 0.30 mg/dL 0.20-1.00 [facility] Comment on above: For patients on eltr ombopag therapy, use of Dimension [place] TBIL is not recommended. Chloride [Moles/Vol] 103 mmol/L 98-107 [facility] Glucose [Mass/Vol] 121 mg/dL 74-106 [facility] Comment on above: Fasting Glucose resu lt from 100 to 125 mg/dL suggests IMPAIRED HOMEOSTASIS per A.D.A. criteria. Potassium [Moles/Vol] 3.7 mmol/L 3.5-5.1 [facility] Protein [Mass/Vol] 7.6 g/dL 6.4-8.2 [facility] Sodium [Moles/Vol] 138 mmol/L 136-145 [facility] WBC (Bld) [#/Vol] 7.8 10*3/uL 4.4-11.0 [facility] Bilirubin Test strip Ql (U)O rdered By: Dr. Anna on 02-04-2023 Bilirubin Ql (U) Negative Negative [facility] Blood erythrocytes count (nu mber/volume)Ordered By: Dr. Anna on 02-04-2023 RBC (Bld) [#/Vol] 4.51 10*6/uL 4.2-5.4 [facility] Blood hemoglobin measurement (mass/volume)Ordered By: Dr. Anna on 02-04-2023 Hemoglobin (Bld) [Mass/Vol] 11.6 g/dL 12.0-15.0 [facility] Blood platelet mean volumeOr dered By: Dr. Anna on 02-04-2023 Platelet mean volume (Bld) [Entitic vol] 9.7 fL 6.2-12.0 [facility] Determination of erythrocyte mean corpuscular volume (MCV)Ordered By: Dr. Anna on 02-04-2023 MCV (RBC) [Entitic vol] 83.1 fL 81-99 [facility] Hematocrit Auto (Bld) [Volum e fraction]Ordered By: Dr. Anna on 02-04-2023 Hematocrit (Bld) [Volume fraction] 37.5 % 37-47 [facility] Ketones Test strip Ql (U)Ord ered By: Dr. Anna on 02-04-2023 Ketones Ql (U) Negative Negative [facility] Laboratory - Chemistry and C hemistry - challengeOrdered By: Dr. Anna on 02-04-2023 HCG ( test) Ql (U) Negative [facility] Comment on above: Very dilute urine sp ecimens, as indicated by a low specificgravity, may not contain employee representative levels of hCG. If is still suspected, a first morning urinespecimen should be collected 48 hours later and tested. ALP [Catalytic activity/Vol] 62 U/L 45-117 [facility] ALT [Catalytic activity/Vol] 22 U/L 13-56 [facility] CO2 [Moles/Vol] 28.0 mmol/L 21.0-32.0 [facility] Globulin (S) [Mass/Vol] 4.3 g/dL 2.2-4.2 [facility] Lipase [Catalytic activity/Vol] 26 U/L 13-75 [facility] Comment on above: Please note:LIPASE r evised reference range effective 23. New Lipase methodology. Expected to produce lower values than the previous assay method. NEW Reference Range: 13 - 75 U/L Urea nitrogen/Creatinine [Mass ratio] 10.4 mg/mg 10-20 [facility] Laboratory - Drug toxicology Ordered By: Dr. Anna on 02-04-2023 Amphetamines Ql (U) Negative <1000 ng/mL [facility] Benzodiazepines Ql (U) Negative < 200 ng/mL [facility] Cannabinoids Screen Ql (U) Negative < 50 ng/mL [facility] Cocaine Ql (U) Negative < 300 ng/mL [facility] Opiates Ql (U) Positive < 300 ng/mL [facility] Laboratory - Hematology and Cell countsOrdered By: Dr. Anna on 02-04-2023 Erythrocyte distribution width (RBC) [Entitic vol] 45.3 fL 35.1-43.9 [facility] Erythrocyte distribution width (RBC) [Ratio] 14.8 % 11.6-14.6 [facility] MCH (RBC) [Entitic mass] 25.7 pg 27.0-32.0 [facility] MCHC Auto (RBC) [Mass/Vol]Or dered By: Dr. Anna on 02-04-2023 MCHC (RBC) [Mass/Vol] 30.9 g/dL 32-36 [facility] Mucus LM Ql (Urine sed)Order ed By: Dr. Anna on 02-04-2023 Mucus Ql (Urine sed) 0 SEEN /hpf [facility] Nitrite Test strip Ql (U)Ord ered By: Dr. Anna on 02-04-2023 Nitrite Ql (U) Negative Negative [facility] No Panel InformationOrdered By: Dr. Anna on 02-04-2023 MDMA (Ecstasy) Screen Negative < 500 ng/mL [facility] Urine Barbiturates Screen Negative < 200 ng/mL [facility] Urine Drug Screen Comment [facility] Comment on above: CONFIRMATORY TESTING FOR ALL POSITIVE URINE DRUG SCREENRESULTS WILL ONLY BE SENT OUT UPON PHYSICIAN ORDER. VISTA Urine Drug Screen methods provide only preliminaryanalytical test results. A more specific alternate chemicalmethod must be used in order to obtain a confirmedanalytical result. Gas chromatography/mass spectrometery(GC/MS) is the preferred confirmatory method. Clinicalconsideration and professional judgement should be appliedto any drug of abuse test result, particularly whenpreliminary positive results are used. URINE TCA TESTING MUST BE ORDERED SEPARATELY. USE TESTMNEMONIC: [facility] Urine Methadone Screen Negative < 300 ng/mL [facility] Estimated Creatinine Clearance Calc 86.85 ml/min [facility] Estimated GFR (MDRD) Amer 99 mL/min >60 [facility] Comment on above: GFR Calc Estimated GFR (MDRD) Non-Af Amer 82 mL/min >60 [facility] Comment on above: Non- GFR Calc Ethyl Alcohol Level < 3.0 mg/dL [facility] Comment on above: The serum:whole bloo d ethanol ratio is approximately 1.14and varies slightly with hematocrit. Medical Alcohol reference interval and critical value innon-tolerant individuals; 50 - 100 Impairment 100 Intoxication 100 - 250 Severe Poisoning 250 - 400 Deep/possible fatal coma Thyroid Stimulating Hormone (TSH) 1.14 uIU/mL 0.358-3.74 [facility] Valproic Acid (Depakene) Level 44 ug/mL 50-100 [facility] Platelets bldOrdered By: Dr. Anna on 02-04-2023 Platelets (Bld) [#/Vol] 368 10*3/uL 150-450 [facility] Protein Test strip Ql (U)Ord ered By: Dr. Anna on 02-04-2023 Protein Ql (U) Negative Negative [facility] Serum or plasma albumin evert urement (mass/volume)Ordered By: Dr. Anna on 02-04-2023 Albumin [Mass/Vol] 3.3 g/dL 3.2-5.0 [facility] Serum or plasma albumin/glob ulin mass ratioOrdered By: Dr. Anna on 02-04-2023 Albumin/Globulin [Mass ratio] 0.8 {ratio} 0.9-2.4 [facility] Serum or plasma calcium evert urement (mass/volume)Ordered By: Dr. Anna on 02-04-2023 Calcium [Mass/Vol] 9.0 mg/dL 8.5-10.1 [facility] Serum or plasma creatinine m easurement (mass/volume)Ordered By: Dr. Anna on 02-04-2023 Creatinine [Mass/Vol] 0.86 mg/dL 0.55-1.02 [facility] Comment on above: The validity of the calculated GFR & GFRAA in patients over 70 years has not been determined. Clinical correlation is essential. Serum or plasma urea nitroge n measurement (mass/volume)Ordered By: Dr. Anna on 02-04-2023 Urea nitrogen [Mass/Vol] 9 mg/dL 7-18 [facility] Squamous epithelial cells de tection in urine sediment by light microscopyOrdered By: Dr. Anna on 02-04-2023 Epithelial cells.squamous LM Ql (Urine sed) 0-5 SEEN /hpf 5-10 [facility] Thin prep Papanicolaou smear with manual screeningOrdered By: Dr. Anna on 02-04-2023 Thin prep Papanicolaou smear with manual screening 13 U/L 15-37 [facility] Thin prep Papanicolaou smear with manual screening 7 5-15 [facility] Urine blood detectionOrdered By: Dr. Anna on 02-04-2023 RBC Ql (U) 50 /ul Negative [facility] RBC Ql (U) 0-5 SEEN /hpf 0-5 [facility] Urine clarityOrdered By: Dr. Anna on 02-04-2023 Clarity (U) Clear Clear [facility] Urine color determinationOrd ered By: Dr. Anna on 02-04-2023 Color (U) Yellow Yellow [facility] Urine glucose detectionOrder ed By: Dr. Anna on 02-04-2023 Glucose Ql (U) Normal mg/dl Normal [facility] Urine leukocyte esterase det ection by dipstickOrdered By: Dr. Anna on 02-04-2023 Leukocyte esterase Test strip Ql (U) Negative Negative [facility] Urine pHOrdered By: Dr. Davis sosa on 02-04-2023 pH (U) 7.0 [pH] 5.0 - 8.0 [facility] Urine phencyclidine (PCP) de tectionOrdered By: Dr. Anna on 02-04-2023 Phencyclidine Ql (U) Negative < 25 ng/mL [facility] Urine sediment bacteria coun t by microscopy (number/high power field)Ordered By: Dr. Anna on 02-04-2023 Bacteria LM.HPF (Urine sed) [#/Area] 0 /[HPF] None Seen [facility] Urine specific gravity measu rementOrdered By: Dr. Anna on 02-04-2023 Specific gravity (U) [Rel density] 1.010 1.002-1.030 [facility] Urobilinogen Auto test strip Ql (U)Ordered By: Dr. Anna on 02-04-2023 Urobilinogen Ql (U) Normal mg/dl Normal [facility] STREP A MOLECULAR (POC)on Procedural Control Valid [facility] Strep A (POCT) Negative Negative [facility] ESR Westergren method (Bld) [Velocity]on 11-24-2022 ESR (Bld) [Velocity] 15 mm/h 0 - 20 mm/hr [facility] VALPROIC A/DEPAKENEon 2022 Valproate [Mass/Vol] 65.8 ug/mL 50.0 - 100.0 ug/mL [facility] CASE MANAGEMon 11-22-2022 CASE MANAGEM HNO ID: [id number] Author: Noemi Jackson RN Service: ? Author Type: Registered Nurse Type: Care Mgt Progress Note Filed: 11/22/2022 2:25 PM Note Text: CARE MANAGEMENT DISCHARGE NOTE SERVICE DATE: 11/22/2022 SERVICE TIME: 2:23 PM LOS: 2 days Admission Date: 11/18/2022 DISCHARGE ARRANGEMENT (list agency and phone number) Discharge Arrangement: Home with Home Health Provider Name: [facility] CAREGIVER ASSESSMENT: Caregiver is ready, willing and able to meet the patient's needs as recommended by the inter-professional team:: Yes Patient's transition needs and plan for meeting these needs: Return home with home care services and family support HANDOFF COMMUNICATION: Handoff to: Primary Care Physician Primary Care Physician Name/Phone: Isaias Bradley MD TRANSPORTATION ARRANGEMENTS: Transportation Arrangements: Car ADDITIONAL CONTACT RESOURCES: Discharge Information Row Name ED to Hosp-Admission (Current) from 11/18/2022 in [facility] Start of Care -- SOC within 24- 48hrs of DC Patient aware of dc orders placed for today. Patient will dc home with [facility] HHC referral updated with orders. Per patient MIL will transport today. RN updated on dc plan. SIGNATURE: Noemi Jackson RN PATIENT NAME: Sonia Szymanski DATE: November 22, 2022 TIME: 2:23 PM PAGER/CONTACT #: [phone] Normal [facility] CBC panel Auto (Bld)on 11-22 Erythrocyte distribution width (RBC) [Ratio] 13.9 % Normal 11.5-15.0 [facility] Comment on above: Order Comment: Shaquille hernandez Type: BLOOD SPECIMENOrdering Facility: [facility] Address: [address] [place] [address] Performed By: #### 5 8410-2 ####[facility]IA [id number] [place] [address] [place] Hematocrit (Bld) [Volume fraction] 33.1 % Low 36.0-46.0 [facility] Comment on above: Order Comment: Shaquille hernandez Type: BLOOD SPECIMENOrdering Facility: [facility] Address: [address] [place] [address] Performed By: #### 5 8410-2 ####[facility]ORYCLIA [id number] [place] [address] [place] Hemoglobin (Bld) [Mass/Vol] 10.4 g/dL Low 11.5-15.5 [facility] Comment on above: Order Comment: Shaquille hernandez Type: BLOOD SPECIMENOrdering Facility: [facility] Address: [address] [place] [address] Performed By: #### 5 8410-2 ####[facility]ORYCLIA [id number] [place] [address] [place] MCH (RBC) [Entitic mass] 25.6 pg Low 26.0-34.0 [facility] Comment on above: Order Comment: Speci men Type: BLOOD SPECIMENOrdering Facility: [facility] Address: [address] [place] [place] [address] Performed By: #### 5 8410-2 ####[facility]ATORYCLIA [id number] [address] MCHC (RBC) [Mass/Vol] 31.4 g/dL Normal 30.5-36.0 [facility] Comment on above: Order Comment: Speci men Type: BLOOD SPECIMENOrdering Facility: [facility] Address: [address] [place] [place] [address] Performed By: #### 5 8410-2 ####[facility]ATORYCLIA [id number] [address] MCV (RBC) [Entitic vol] 81.3 fL Normal 80.0-100.0 [facility] Comment on above: Order Comment: Speci men Type: BLOOD SPECIMENOrdering Facility: [facility] Address: [address] [place] [place] [address] Performed By: #### 5 8410-2 ####[facility]ATORYCLIA [id number] [address] Nucleated RBC (Bld) [#/Vol] 10*3/uL Normal <0.01 [facility] Comment on above: Order Comment: Speci men Type: BLOOD SPECIMENOrdering Facility: [facility] Address: [address] [place] [place] [address] Performed By: #### 5 8410-2 ####[facility]ATORYCLIA [id number] [address] Platelet mean volume (Bld) [Entitic vol] 9.9 fL Normal 9.0-12.7 [facility] Comment on above: Order Comment: Speci men Type: BLOOD SPECIMENOrdering Facility: [facility] Address: [address] [place] [address] Performed By: #### 5 8410-2 ####[facility]ATORYCLIA [id number] [address] [place] Platelets (Bld) [#/Vol] 308 10*3/uL Normal 150-400 [facility] Comment on above: Order Comment: Speci men Type: BLOOD SPECIMENOrdering Facility: [facility] Address: [address] [place] [place] [address] Performed By: #### 5 8410-2 ####[facility]ATORYCLIA [id number] [address] RBC (Bld) [#/Vol] 4.07 10*6/uL Normal 3.90-5.20 [facility] Comment on above: Order Comment: Speci men Type: BLOOD SPECIMENOrdering Facility: [facility] Address: [address] [place] [address] Performed By: #### 5 8410-2 ####[facility]ATORYCLIA [id number] [address] WBC (Bld) [#/Vol] 8.85 10*3/uL Normal 3.70-11.00 [facility] Comment on above: Order Comment: Speci men Type: BLOOD SPECIMENOrdering Facility: [facility] Address: [address] [place] [address] Performed By: #### 5 8410-2 ####[facility]ORATORYCLIA [id number] [address] CNDSon 11-22-2022 CNDS HNO ID: [id number] Author: Esa Cordero PA-C Service: Hospital Medicine Author Type: Physician Commercial Crabber Type: Discharge Summary Filed: 11/22/2022 12:55 PM Note Text: Attestation signed by Belkis Cassidy MD at 11/22/2022 3:58 PM Attending Note I have performed an assessment of the patient and have reviewed the AMBER note and agree as written. Other additions or changes: As edited Signature: Belkis Cassidy Date: 11/22/2022 Time: 3:54 PM DISCHARGE SUMMARY PATIENT NAME: Sonia Szymanski Code Status: Full Code Highest Readmission Risk Score: 26 The 30 day readmissions risk score is derived from an internally validated risk model which evaluates patient level characteristics, utilization history, medication orders and lab results up until the day of discharge. Patients with a score of 40 or above are considered highest risk for readmission. Specific patient level drivers will be listed at the bottom of the summary. Admission Information Admission Information ADMIT DATE: 11/18/2022 DISCHARGE DATE: 11/22/2022 MY DOCTORS AND MEDICAL TEAM: My Main Hospital Doctor: Belkis Cassidy MD Primary Care Provider: Isaias Bradley MD My Medical Team Members: Treatment Team: Attending Provider: Belkis Cassidy MD Consulting: Sana Brady MD Physician Commercial Crabber: Esa Cordero PA-C MY CONDITION AT DISCHARGE: Improved REASON I WAS IN THE HOSPITAL: abdominal pain SUMMARY OF WHAT HAPPENED WHILE I WAS IN THE HOSPITAL: Patient was admitted for abdominal pain. Sonia Szymanski is a 27 year old female with a past medical history significant for migraines, [place]'s, Grave's s/p surgery, seizure disorder, depression and DM2 who presents with persistent nausea, vomiting and progressive weakness for the past 2-3 weeks. On admission, LFTs were wnl, however spiked in a hepatocellular pattern. Hep panel neg, smooth Ab negative, BOBBY in process. RUQ US showed mild intrahepatic bile duct dilation and CBD 7.2mm in diameter. GI followed. MRCP obtained: NAP, mild dilation of CBD likely post surgical from remote lap elisa. EGD was performed showing bile gastritis (bx sent) and variable z-line. GI recc Protonix 40 mg PO daily and sucralfate tablets 1 gram PO BID. Pt eager for discharge home. LFTs downtrending; she should repeat LFTs in one week and f/u with GI. Can discuss with PCP about metformin contributing to abdominal symptoms and consider stopping. Problem List: Nausea and vomiting Abdominal pain Diarrhea - Has had extensive work up and multiple hospitalizations over the past few months without significant findings aside from moderate stool burden - Admits to THC use about 2 weeks ago with worsening symptoms so she stopped using it - Abdominal XR no acute process - GI following and recommends Protonix 40mg BID and adding Carafate - Checking stool studies (no BM since admission) - Anemia work up revealed iron deficiency- started IV ferrlecit - Consider repeat EGD and colonoscopy - Consider gastric emptying study - PRN pain control and antiemetics Elevated LFTs - Alk phos slightly elevated, bili wnl - ALT 101-->734 --> 665 - AST 585 --> 319 - RUQ US: mild intrahepatic bile duct dilation; CBD: 7.2 mm in diameter - MRCP Generalized weakness - 2/2 GI losses - PT/OT evaluations Electrolyte abnormality - Hypomagnesemia, replaced with Mag sulfate - Monitor 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 * OPERATIONS PERFORMED WHILE IN THE HOSPITAL: None IMPORTANT TEST/PROCEDURES: EGD MRI TEST RESULTS NOT AVAILABLE AT THIS TIME: Liver serology: BOBBY Discharge Disposition Home/Self Care Activity When You Leave the Hospital Activity Resume pre-hospital activity Diet Instructions Diet Resume pre-hospital diet Follow Up Appointments Follow-Up Appointment When: In 1 week Isaias Bradley MD [phone] [id number] [facility] [address] PCP Requested Referral Additional Provider to Provider Information: Sonia Szymanski is a 27 year old female with a past medical history significant for migraines, Wabasso's, Grave's s/p surgery, seizure disorder, depression and DM2 who presents with persistent nausea, vomiting and progressive weakness for the past 2-3 weeks. On admission, LFTs were wnl, however spiked in a hepatocellular pattern. Hep panel neg, smooth Ab negative, BOBBY in process. RUQ (more content not included)... Normal [facility] Comprehensive metabolic 2000 panelon 11-22-2022 Albumin [Mass/Vol] 3.6 g/dL Low 3.9-4.9 [facility] Comment on above: Order Comment: Speci men Type: BLOOD SPECIMENOrdering Facility: [facility] Address: [address] [place] [address] Performed By: #### 2 4322-8, ####[facility] LABORATORYCLIA [id number] [place] [address] [place] ALP [Catalytic activity/Vol] 141 U/L High 34-123 [facility] Comment on above: Order Comment: Speci men Type: BLOOD SPECIMENOrdering Facility: [facility] Address: [address] [place] [address] Performed By: #### 2 8, ####[facility] LABORATORYCLIA [id number] [address] [place] ALT [Catalytic activity/Vol] 536 U/L High 7-38 [facility] Comment on above: Order Comment: Speci men Type: BLOOD SPECIMENOrdering Facility: [facility] Address: [address] [place] [address] Performed By: #### 2 8, ####[facility] LABORATORYCLIA [id number] [address] [place] Anion gap [Moles/Vol] 6 mmol/L Low 9-18 [facility] Comment on above: Order Comment: Speci men Type: BLOOD SPECIMENOrdering Facility: [facility] Address: [address] [address] Performed By: #### 2 8, ####[facility] LABORATORYCLIA [id number] [address] [place] AST [Catalytic activity/Vol] 173 U/L High 13-35 [facility] Comment on above: Order Comment: Speci men Type: BLOOD SPECIMENOrdering Facility: [facility] Address: [address] [address] Performed By: #### 2 8, ####[facility] LABORATORYCLIA [id number] [place] [address] [place] Bilirubin [Mass/Vol] 0.6 mg/dL Normal 0.2-1.3 [facility] Comment on above: Order Comment: Speci men Type: BLOOD SPECIMENOrdering Facility: [facility] Address: [address] [place] [address] Performed By: #### 2 4328, ####S[facility] LABORATORYCLIA [id number] [place] [address] [place] Calcium [Mass/Vol] 9.0 mg/dL Normal 8.5-10.2 [facility] Comment on above: Order Comment: Speci men Type: BLOOD SPECIMENOrdering Facility: [facility] Address: [address] [place] [address] Performed By: #### 2 8, ####S[facility] LABORATORYCLIA [id number] [place] [address] [place] Chloride [Moles/Vol] 101 mmol/L Normal 97-105 [facility] Comment on above: Order Comment: Speci men Type: BLOOD SPECIMENOrdering Facility: [facility] Address: [address] [place] [address] Performed By: #### 2 8, ####[facility] LABORATORYCLIA [id number] [place] [address] [place] CO2 [Moles/Vol] 32 mmol/L High 22-30 [facility] Comment on above: Order Comment: Speci men Type: BLOOD SPECIMENOrdering Facility: [facility] Address: [address] [place] [address] Performed By: #### 2 43238, ####S[facility] LABORATORYCLIA [id number] [place] [address] [place] Creatinine [Mass/Vol] 0.63 mg/dL Normal 0.58-0.96 [facility] Comment on above: Order Comment: Speci men Type: BLOOD SPECIMENOrdering Facility: [facility] Address: [address] [place] [address] Performed By: #### 2 4323-8, ####S[facility] LABORATORYCLIA [id number] [place] [address] [place] ESTIMATED GLOMERULAR FILTRATION RATE 123 mL/min/1.73m??? Normal >=60 [facility] Comment on above: Order Comment: Shaquille hernandez Type: BLOOD SPECIMENOrdering Facility: [facility] Address: [address] [address] Result Comment: Columba mated Glomerular Filtration Rate (eGFR) is calculated using the 2020 CKD-EPI creatinine equation. This equation utilizes serum creatinine, sex, and age as parameters. The creatinine assay has traceable calibration to isotope dilution-mass spectrometry. Refer to KDIGO guidelines for clinical interpretation. In patients with unstable renal function, e.g. those with acute kidney injury, the eGFR may not accurately reflect actual GFR. Performed By: #### 2 4323-8, ####S[facility] LABORATORYCLIA [id number] [place] [id number] [place] Glucose [Mass/Vol] 78 mg/dL Normal 74-99 [facility] Comment on above: Order Comment: Shaquille hernandez Type: BLOOD SPECIMENOrdering Facility: [facility] Address: [address] [place] [address] Result Comment: The [place] Diabetes Association (ADA) provides guidance for cutoff [...] Standards of Medical Care in Diabetes 2016, Australian Diabetes Association. Diabetes Care. 2016.39(Suppl 1). Performed By: #### 2 4323-8, ####S[facility] LABORATORYCLIA [id number] [place] [address] [place] Potassium [Moles/Vol] 3.8 mmol/L Normal 3.7-5.1 [facility] Comment on above: Order Comment: Speci men Type: BLOOD SPECIMENOrdering Facility: [facility] Address: [address] [address] Performed By: #### 2 4323-8, ####S[facility] LABORATORYCLIA [id number] [place] [address] [place] Protein [Mass/Vol] 6.4 g/dL Normal 6.3-8.0 [facility] Comment on above: Order Comment: Speci men Type: BLOOD SPECIMENOrdering Facility: [facility] Address: [address] [place] [address] Performed By: #### 2 8, ####[facility] LABORATORYCLIA [id number] [address] [place] Sodium [Moles/Vol] 139 mmol/L Normal 136-144 [facility] Comment on above: Order Comment: Speci men Type: BLOOD SPECIMENOrdering Facility: [facility] Address: [address] [address] Performed By: #### 2 8, ####[facility] LABORATORYCLIA [id number] [place] [address] [place] Urea nitrogen [Mass/Vol] 3 mg/dL Low 7-21 [facility] Comment on above: Order Comment: Speci men Type: BLOOD SPECIMENOrdering Facility: [facility] Address: [address] [address] Performed By: #### 2 43238, ####[facility] LABORATORYCLIA [id number] [place] [address] [place] FECAL LACTOFERRIN/LEUKOCYTES on 11-22-2022 Lactoferrin IA Ql (Stl) Negative for lactoferrin, which may indicate the absence of fecal white blood cells Normal Negative [facility] Comment on above: Order Comment: Speci men Type: STOOL SPECIMENOrdering Facility: [facility] Address: [address] [address] Performed By: #### F ECWBC ####[facility] LABCLIA [id number] [place] [address] [place] G lamblia+Cryptosp Ag Stl Ql IAon 11-22-2022 G. lamblia+Cryptosporidium sp Ag IA Ql (Stl) CRYPTOSPORIDIUM ANTIGEN BY EIA: Negative for Cryptosporidium by EIA. GIARDIA ANTIGEN BY EIA: Negative for Giardia lamblia by EIA. Normal [facility] Comment on above: Performed By: #### 2 4323-8, 3040-3, 58386-6 #### [facility] CLIA [id number] [address] [place] [address] [place] Gastrointestinal pathogens i dentified PINKY+probe Nom (Stl)on 11-22-2022 Campylobacter sp DNA PINKY+probe Nom (Unsp spec) Not detected Normal Not Detected [facility] Comment on above: Order Comment: Speci men Type: STOOL SPECIMENOrdering Facility: [facility] Address: [address] [place] [address] Performed By: #### 7 9390-1 ####[facility] LABCLIA [id number] [address] [place] Salmonella sp DNA PINKY+probe Ql (Unsp spec) Not detected Normal Not Detected [facility] Comment on above: Order Comment: Speci men Type: STOOL SPECIMENOrdering Facility: [facility] Address: [address] [place] [address] Performed By: #### 7 9390-1 ####[facility] LABCLIA [id number] [address] [place] Shiga toxin stx gene PINKY+probe Nom (Unsp spec) Not detected Normal Not Detected [facility] Comment on above: Order Comment: Speci men Type: STOOL SPECIMENOrdering Facility: [facility] Address: [address] [place] [address] Performed By: #### 7 9390-1 ####[facility] LABCLIA [id number] [place] [address] [place] Shigella sp DNA PINKY+probe Ql (Unsp spec) Not detected Normal Not Detected [facility] Comment on above: Order Comment: Speci men Type: STOOL SPECIMENOrdering Facility: [facility] Address: [address] [place] [address] Performed By: #### 7 9390-1 ####[facility] LABCLIA [id number] [place] [address] [place] Magnesium SerPl-mCncon 11-22 Magnesium [Mass/Vol] 1.6 mg/dL Low 1.7-2.3 [facility] Comment on above: Order Comment: Speci men Type: BLOOD SPECIMENOrdering Facility: [facility] Address: [address] [place] [address] Performed By: #### 2 4323-8, 68955-1 ####[facility] LABORATORYCLIA [id number] [address] [place] OCCULT BLD EXAM-DIAGon 11-22 OCCULT BLD EXAM-DIAG Negative Normal [facility] Comment on above: Performed By: #### 2 4323-8, 0-3, 23629-6 #### [facility] CLIA [id number] [address] [facility] SURGICAL PATHOLOGYon 023 CASE REPORT Normal [facility] Comment on above: Order Comment: Speci men Type: BLOOD SPECIMEN [facility] Address: [address] [place] [address] Result Comment: Surg ical Pathology Report Case: [id number] Authorizing Provider: Mario Bowen MD Collected: 11/22/2022 10:16 AM Ordering Location: [facility] Endoscopy Received: 11/22/2022 02:39 PM Pathologist: Ashlee Rivers MD Specimens: A) - DUODENUM BIOPSY, R/O Celiac B) - STOMACH BIOPSY, R/O H.pylori Performed By: #### 2 4323-8, 0-3, 46189-2 #### [facility] CLIA [id number] [address] FINAL DIAGNOSIS Normal [facility] Comment on above: Order Comment: Speci men Type: BLOOD SPECIMEN [facility] Address: [address] [id number] Result Comment: A. D uodenum, biopsy: - Duodenal mucosa with no diagnostic abnormality. - No evidence of celiac disease. B. Stomach, biopsy: - Gastric antral and oxyntic mucosa with reactive gastropathy. - No morphologic evidence of Helicobacter pylori organisms. Performed By: #### 2 4323-8, 3039-3, #### [facility] CLIA [id number] [address] FINAL PERFORMING LAB [facility] Comment on above: Order Comment: Speci mary Type: BLOOD SPECIMEN [facility] Address: [address] [place] [address] Result Comment: Diag nostic interpretation performed at [facility], [address] [address] CLIA# [id number] [employer] Work: Eric Singh M.D. Performed By: #### 2 4323-8, 3039-3, #### [facility] CLIA [id number] [address] GROSS DESCRIPTION [facility] Comment on above: Order Comment: Speci men Type: BLOOD SPECIMEN [facility] Address: [address] [address] Result Comment: A. D UODENUM BIOPSY Received in formalin are multiple pieces of craft, soft tissue aggregating to 1.2 x 0.2 x 0.2 cm. Totally submitted in one cassette. B. STOMACH BIOPSY Received in formalin are multiple pieces of craft, soft tissue aggregating to 1.4 x 0.2 x 0.2 cm. Totally submitted in one cassette. November 22, 2022 4:45 PM Gross examination performed at [facility], [address] [place] [address] Performed By: #### 2 4323-8, 3040-3, 14756-5 #### [facility] CLIA [id number] [address] [place] [address] [facility] THERAPY NTon 11-22-2022 THERAPY NT HNO ID: [id number] Author: Virginie Naranjo, PT Service: Physical Therapy Author Type: Physical Therapist Type: Therapy (PT/OT/Speech/Resp) Filed: 11/22/2022 1:17 PM Note Text: Physical Therapy Evaluation SERVICE DATE: 11/22/2022 SERVICE TIME: 1105 to 1142 ROOM: [place] [address] Recommended Discharge Disposition: Home PT Recommended Discharge Disposition Comments: for safety assessment and to increase strength and safe functional mobility in her home Anticipated Discharge Needs: Physical Assist at Home, Supervision at Home Physical Assist at Home for: Cleaning, Laundry, Meals, Safety, Shopping, Transportation Supervision at Home due to: (initially for optimal safety) Recommended Discharge Equipment: No equipment needs anticipated PT 6 Clicks Score: 20 Precautions/Activity Restrictions: Fall Risk, Lines/Tubes/Drains Current Hospital Course: workup Reason for Hospital Admission: nausea vomiting abd pain weakness Relevant Past Medical History: 27 yo woman with hx of migraines, Slade's, Grave's s/p surgery, Seizure disorder, depression, DM2 Response to Therapy Interventions: Good participation in activities, Requires additional time to complete activities, Requires encouragement to complete activities, Slow progression with functional activities/skills Assessment Comments: Patient presents with weakness and shaking with functional mobility. Patient demonstrates safety with FWW with cues for distancing due to patient reports of falls. recommend not to use rollator due to difficulty with distance. patient demonstrates good follow through with cues. Safe with room distances and cues Continue skilled needs due to: Functional mobility/skill impairments, Safety concerns Physical Therapy Problem List: Safety Deficits, Impaired Self Care, Decreased Activity Tolerance, Decreased Range Of Motion, Decreased Strength, Functional Mobility Impairment, Balance Impaired Treatment Interventions: Education, Neuromuscular Re-education Plan for next visit: Bed mobility, Curb step training, Fall prevention, Gait training, Pre-gait activities, Sit to Stand Transfers, Sitting balance, Standing Balance, Standing Tolerance, Walker Training Home Environment Patient Lives With: Family ( and son) Assistance Available: Part-Time (SPO works) Entry To Home: Stairs, Without Rail Number Of Stairs Into Home: 1 Number Of Stairs To Bed/Bath: 0 (1st floor set-up) Tub/Shower Type: tub/shower with SC, GB, HHS Laundry: in basement; SPO can assist Equipment Owned: Walker- Wheeled, Cane, Shower Chair, Grab Bars- Shower, Hand Held Shower, Rollator Prior Functional Level: Within Functional Limits, Required Assistance, History of Falls Assistance Required With: Cleaning, Laundry, Meals, Shopping, Transportation Prior Functional Level Comments: Patient ind with rollator and ADL however recently spouse provides assist. Spouse completes IADL's, driving, shopping. 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 patient notes 3-4 falls in last approximately 1 month due to weakness. Baseline Cognition: Oriented to self, Oriented to place, Oriented to time Patient Report: patient agreeable to PT and cleared by RN. notes that she feels weak and shaky CURRENT FUNCTIONAL STATUS: Most recent performance Current Functional Mobility Assist Level Additional Information Rolling Supine to Sit Supervision Sit to Supine Supervision Scooting Supervision, Additional Information in sitting, fwd/retro at EOB Sit to Stand Contact Guard Assistance, Additional Information from lowered EOB with FWW. cues for hand placement Stand to Sit Contact Guard Assistance, Additional Information to EOB with FWW. cues for safe approach of EOB with FWW, positioning at HOB, hand placement and controlled descent Bed to Chair Toilet/Commode Gait Contact Guard Assistance, Additional Information Gait Device: Wheeled Walker Gait Distance (feet): 25 x 1 recommendation for use of FWW at home instead of rollator due to falls and educaiton of rationale. education for adjusting device height appropriately and rationale. cues for walker negotiation/sequencingd istancing and turning. reinforced distancing with need to increase UE as needed for support to limit fall risk. noted shakiness throughout with no noted instability Stairs Curb Step Contact Guard Assistance, Additional Information Device: Wheeled Walker cues for sequencing/negotiation with FWW Car Transfer Blank addison indicate activity not attempted Gait Deviations Right Lower Extremity: Heel strike during initial stance decreased, Lacks hip extension beyond mid-stance, Push off during terminal stance decreased, Step length decreased Gait Deviations Left Lower Extremity: Heel strike during initial stance decreased, Lacks hip extension beyond mid-stance, Push off during terminal stance decreased, Step length decreased General Deviatio (more content not included)... Normal [facility] Upper GI endoscopyon 023 Upper GI endoscopy [facility] Gastrointestinal Endoscopy Patient Name: Sonia Szymanski Procedure Date: 11/22/2022 10:00 AM Date of : 1995 Admit Type: Inpatient Age: 27 Room: [facility] Gender: Female Note Status: Finalized Attending MD: Mario Bowen MD Procedure: Upper GI endoscopy Indications: Generalized abdominal pain, Nausea with vomiting Providers: Mario Bowen MD Patient Profile: Refer to note in patient chart for documentation of history and physical. Referring Physician: Karen Hernandez (Referring MD) Medicines: Meperidine 100 mg IV, Fentanyl 100 micrograms IV, Midazolam 4 mg IV Complications: No immediate complications. Requesting Provider: Procedure: Pre-Anesthesia Assessment: - Prior to the procedure, a History and Physical was performed, and patient medications, allergies and sensitivities were reviewed. The patient's tolerance of previous anesthesia was reviewed. - The risks and benefits of the procedure and the sedation options and risks were discussed with the patient. All questions were answered and informed consent was obtained. - Airway Examination: Mallampati Class IV (tongue obstructs view of the soft palate). - ASA Grade Assessment: III - A patient with severe systemic disease. - After reviewing the risks and benefits, the patient was deemed in satisfactory condition to undergo the procedure. - The anesthesia plan was to use moderate sedation/analgesia (conscious sedation). After obtaining informed consent, the endoscope was passed under direct vision. Throughout the procedure, the patient's blood pressure, pulse, and oxygen saturations were monitored continuously. The Endoscope was introduced through the mouth, and advanced to the second part of duodenum. The upper GI endoscopy was accomplished without difficulty. The patient tolerated the procedure well. Moderate Sedation: The administration of moderate sedation was initiated at 10:05 AM. Total Procedure Duration: 0 hours 4 minutes 45 seconds Findings: The examined duodenum was normal. This was biopsied with a cold forceps for r/o celiac disease. Diffuse moderate inflammation characterized by congestion (edema) and granularity was found in the stomach. This was biopsied with a cold forceps for Helicobacter pylori testing. The cardia and gastric fundus were normal on retroflexion. The Z-line was variable and was found 37 cm from the incisors. The exam of the esophagus was otherwise normal. Impression: - Normal examined duodenum. Biopsied. - Bile gastritis. Biopsied. - Z-line variable, 37 cm from the incisors. Recommendation: - Await pathology results. - [facility]. - Resume regular diet. - Use Protonix (pantoprazole) 40 mg PO daily. - Use sucralfate tablets 1 gram PO BID. Procedure Code(s): --- Professional --- 47066, Esophagogastroduodenosc opy, flexible, transoral; with biopsy, single or multiple CPT copyright 2020 [employer]. All rights reserved. The codes documented in this report are preliminary and upon map clerk review may be revised to meet current compliance requirements. Attending Participation: I personally performed the entire procedure. Scope In: 10:15:04 AM Scope Out: 10:19:49 AM MD Mairo Waller MD 11/22/2022 10:28:15 AM This report has been signed electronically by Mario Bowen MD Number of Addenda: 0 Note Initiated On: 11/22/2022 10:00 AM Estimated Blood Loss: Estimated blood loss: none. Normal [facility] 11-21-2022 [facility] HNO ID: [id number] Author: RT Ana(R) Service: Radiology Author Type: Technologist Type: Allied Health Filed: 11/21/2022 11:30 AM Note Text: Radiology Service Progress Note PATIENT NAME: Sonia Szymanski DATE OF SERVICE: November 21, 2022 TIME: 11:29 AM PATIENT IDENTITY VERIFICATION COMPLETED USING TWO (2) IDENTIFIERS: Name and Date of confirmed by patient verbally and Name and Date of confirmed by identification band. FALL SCREENING: Has the patient had 2 falls in the last year or 1 fall with injury or currently using an Ambulatory Assistive Device (Walker, Cane, Wheelchair, Crutches, etc.)? Inpatient: Screened on floor PATIENT GENDER DATA: Female. status: : No status: NO. PATIENT RELEVANT IMPLANT DATA REVIEWED: Yes RADIOLOGY DEPARTMENT: MR; Exam(s) Completed: Body: Pancreas/Biliary PERIPHERAL IV DATA: Inpatient: see LDA documentation SIGNED BY: RT Ana(R) November 21, 2022 11:29 AM Normal [facility] CASE MANAGEMon 11-21-2022 CASE MANAGEM HNO ID: [id number] Author: Noemi Jackson RN Service: ? Author Type: Registered Nurse Type: Care Mgt Progress Note Filed: 11/21/2022 10:33 AM Note Text: CARE MANAGEMENT PROGRESS NOTE SERVICE DATE: 11/21/2022 SERVICE TIME: 10:32 AM LOS: 1 day Needs Prior to Discharge: OT/PT Evaluation;Other: See Comment (medical clearance) CM rounded with MD. Plan for MRCP today. PT/OT eval pending CM department will continue to follow for dc planning needs. SIGNATURE: Noemi Jackson RN PATIENT NAME: Sonia Szymanski DATE: November 21, 2022 TIME: 10:31 AM PAGER/CONTACT #: [phone] Normal [facility] CBC panel Auto (Bld)on 11-21 Erythrocyte distribution width (RBC) [Ratio] 13.8 % Normal 11.5-15.0 [facility] Comment on above: Order Comment: Speci men Type: BLOOD SPECIMENOrdering Facility: [facility] Address: [address] [place] [address] Performed By: #### 5 8410-2 ####[facility] LABORATORYCLIA [id number] [place] [address] [place] Hematocrit (Bld) [Volume fraction] 30.8 % Low 36.0-46.0 [facility] Comment on above: Order Comment: Speci men Type: BLOOD SPECIMENOrdering Facility: [facility] Address: [address] [address] Performed By: #### 5 8410-2 ####[facility] LABORATORYCLIA [id number] [place] [address] [place] Hemoglobin (Bld) [Mass/Vol] 9.9 g/dL Low 11.5-15.5 [facility] Comment on above: Order Comment: Nonii men Type: BLOOD SPECIMENOrdering Facility: [facility] Address: [address] [address] Performed By: #### 5 8410-2 ####SALGUERO LABORATORYCLIA [id number] [address] MCH (RBC) [Entitic mass] 26.1 pg Normal 26.0-34.0 [facility] Comment on above: Order Comment: Speci men Type: BLOOD SPECIMENOrdering Facility: [facility] Address: [address] [place] [address] Performed By: #### 5 8410-2 ####SALGUERO LABORATORYCLIA [id number] [address] MCHC (RBC) [Mass/Vol] 32.1 g/dL Normal 30.5-36.0 [facility] Comment on above: Order Comment: Speci men Type: BLOOD SPECIMENOrdering Facility: [facility] Address: [address] [place] [address] Performed By: #### 5 8410-2 ####SALGUERO LABORATORYCLIA [id number] [address] MCV (RBC) [Entitic vol] 81.1 fL Normal 80.0-100.0 [facility] Comment on above: Order Comment: Speci men Type: BLOOD SPECIMENOrdering Facility: [facility] Address: [address] [place] [address] Performed By: #### 5 8410-2 ####SALGUERO LABORATORYCLIA [id number] [address] Nucleated RBC (Bld) [#/Vol] 10*3/uL Normal <0.01 [facility] Comment on above: Order Comment: Speci men Type: BLOOD SPECIMENOrdering Facility: [facility] Address: [address] [place] [address] Performed By: #### 5 8410-2 ####SALGUERO LABORATORYCLIA [id number] [address] Platelet mean volume (Bld) [Entitic vol] 9.8 fL Normal 9.0-12.7 [facility] Comment on above: Order Comment: Speci men Type: BLOOD SPECIMENOrdering Facility: [facility] Address: [address] [address] Performed By: #### 5 8410-2 ####SALGUERO LABORATORYCLIA [id number] [place] [address] [facility] [place] Platelets (Bld) [#/Vol] 284 10*3/uL Normal 150-400 [facility] Comment on above: Order Comment: Speci men Type: BLOOD SPECIMENOrdering Facility: [facility] Address: [address] [place] [address] Performed By: #### 5 8410-2 ####SALGUERO LABORATORYCLIA [id number] [place] [address] [place] RBC (Bld) [#/Vol] 3.80 10*6/uL Low 3.90-5.20 [facility] Comment on above: Order Comment: Speci men Type: BLOOD SPECIMENOrdering Facility: [facility] Address: [address] [place] [address] Performed By: #### 5 8410-2 ####SALGUERO LABORATORYCLIA [id number] [address] [place] WBC (Bld) [#/Vol] 7.01 10*3/uL Normal 3.70-11.00 [facility] Comment on above: Order Comment: Speci men Type: BLOOD SPECIMENOrdering Facility: [facility] Address: [address] [place] [address] Performed By: #### 5 8410-2 ####SALGUERO LABORATORYCLIA [id number] [address] [place] CONSULT PROGon 11-21-2022 CONSULT PROG HNO ID: [id number] Author: Mario Bowen MD Service: Gastroenterology Author Type: Physician Type: Consult Progress Note Filed: 11/21/2022 3:57 PM Note Text: GASTROENTEROLOGY CONSULT PROGRESS NOTE Patient Name: Sonia Szymanski SERVICE DATE: November 21, 2022 SERVICE TIME: 9:58 AM ASSESSMENT: Elevated LFTs. DDx Choledocholithiasis, COVID, Hepatitis, DILI Persistent nausea, non-bloody emesis and anorexia x 2-3 week. DDx gastritis (COVID related, bile), PUD, bilary etiologies, esophagitis, gastroparesis, IBS vs IBD Hx of diarrhea Anemia with component of iron deficiency S/P recent COVID in September 2022 Wabasso's disease / seizure disorder / DM 2 / Depression PLAN: - Agree with MRI/MRCP as ordered - Consider ERCP based on findings - Protonix 40 mg BID / Carafate 1 gm BID - Stool log: Obtain stool studies (FL, Cx, OANDP, C.diff, OB) if diarrhea relapses - Ferrlecit 125 mg IV daily - Monitor CBC, CMP and mag daily - Consider repeat EGD based on clinical course - Future colonoscopy - Clear liquid diet - Recommend close follow up with established [facility] following discharge Patient seen and examined. Discussed with mid level provider. Bell findings confirmed. Plan as outlined. Continue to complain of abd pain. MRCP reviewed Etiology of abnormal LFTs unclear, ? DILI. Follow LFTs. Plan EGD in AM Cautioned patient to avoid pain meds. Mario Bowen MD November 21, 2022 3:54 PM ___ INTERVAL HPI: Continues to complains of severe sharp RUQ 8/10 pain with radiation to back. Associated nausea without vomiting. No further diarrhea since admission. States last BM was Monday prior to arrival. Iron studies with component of iron deficiency and has been started on Ferrlecit. RUQ US mild intrahepatic bile dilation in the setting of cholecystectomy. MRI/MRCP ordered yesterday - spoke with MRI department and possibly to be completed today at 1600. PHYSICAL EXAM: Patient Vitals for the past 24 hrs: BP Temp Temp src Pulse Resp SpO2 Weight 11/21/22 0800 107/68 36.5 ?C (97.7 ?F) Oral 93 16 96 % -- 11/21/22 0643 -- -- -- -- -- -- 76.6 kg (168 lb 14 oz) 11/21/22 0314 -- -- -- -- 16 -- -- 11/21/22 0115 -- -- -- -- 16 -- -- 11/20/22 2358 101/74 36.8 ?C (98.2 ?F) Oral 66 16 95 % -- 11/20/22 2246 -- -- -- -- 18 -- -- 11/20/22 2115 -- -- -- -- 16 -- -- 11/20/22 1856 -- -- -- -- 18 -- -- 11/20/22 1029 -- -- -- -- -- -- 77.1 kg (169 lb 15.6 oz) GENERAL: Alert AND oriented x 3. Cooperative. NAD EYES: No scleral icterus SKIN: [place] in color. No jaundice LUNGS: Clear to auscultation anteriorly CARDIAC: RRR ABDOMEN: BS hypoactive. Abdomen soft and non distended. Diffusely tender with marked tenderness to RUQ. No palpable masses or organomegaly. No guarding or rebound tenderness elicited EXTREMITIES: No upper or lower extremity edema LABS: CBC, Coags, BMP, Mg, Phos Recent Labs 11/21/2241011/20/22 1010 11/20/2244811/19/22401 WBC 7.01 -- 6.29 7.48 HB 9.9* -- 10.0* 9.3* HCT 30.8* -- 32.1* 30.0* PLT 284 -- 293 280 INR -- 1.0 -- -- NA 142 -- 140 140 K 3.7 -- 3.7 4.1 CHLOR 102 -- 102 106* CO2 34* -- 29 26 BUN 3* -- 3* 7 CREAT 0.70 -- 0.63 0.51* GLUC 85 -- 88 106* CA 8.5 -- 8.8 8.1* MG 2.0 -- 1.8 1.4* Liver Function, Amylase, AND Lipase Recent Labs 11/21/2241011/20/2244811/18/222009 TPROT 6.4 6.8 7.0 ALB 3.7* 3.9 4.0 ALT 665* 734* 101* AST 319* 585* -- ALKPHOS 131* 133* 80 TBILI 0.4 0.5 0.3 LIPASE -- 26 24 MEDICATIONS: Current Facility-Administered Medications Medication Dose Route Frequency dextrose 40 % 15 g 15 g ORAL PRN Or glucagon 1 mg injection 1 mg INTRAMUSCULAR PRN Or dextrose 10% iv bolus 12.5 g INTRAVENOUS PRN insulin lispro injection (rapid acting) (ADMELOG) SUBCUTANEOUS w MEALS insulin lispro injection (rapid acting) (ADMELOG) SUBCUTANEOUS AT BEDTIME polyethylene glycol 3350 17 g packet (MIRALAX, GLYCOLAX) 17 g ORAL DAILY PRN benzocaine-menthol 1 Lozenge (CEPACOL) 1 Lozenge MUCOUS MEMBRANE (TOPICAL MOUTH AND THROAT) q 2 H PRN benzonatate 100 mg cap(s) (TESSALON PERLE) 100 mg ORAL TID PRN calcium carbonate 1,000 mg chewable tab(s) (TUMS) 1,000 mg ORAL TID PRN melatonin 3 mg tab(s) 3 mg ORAL AT BEDTIME PRN senna-docusate 8.6-50 mg 1 tablet (SENNA-S) 1 tablet ORAL BID PRN ondansetron (PF) 4 mg injection (ZOFRAN) 4 mg INTRAVENOUS q 6 H PRN prochlorperazine 10 mg injection (COMPAZINE) 10 mg INTRAVENOUS q 6 H PRN HYDROmorphone 0.5 mg injection (DILAUDID) 0.5 mg INTRAVENOUS q 3 H PRN ipratropium-albuterol 3 mL nebulizer solution (DUONEB) 3 mL INHALATION q [address] 40 mg tab(s) (PROTONIX) 40 mg ORAL BID AC (0600/1600) oxyCODONE IR 5 mg tab(s) (ROXICODONE) 5 mg ORAL q 4 H PRN busPIRone 5 mg tab(s) (BUSPAR) 5 mg ORAL TID divalproex DR 250 mg tab(s) (DEPAKOTE) 250 mg ORAL DAILY divalp (more content not included)... Normal [facility] Comprehensive metabolic 2000 panelon 11-21-2022 Albumin [Mass/Vol] 3.7 g/dL Low 3.9-4.9 [facility] Comment on above: Order Comment: Speci men Type: BLOOD SPECIMENOrdering Facility: [facility] Address: [address] [place], [place] [address]Bárbara JEFFERY, [address] Performed By: #### 2 432-8, 67012-6 ####SALGUERO LABORATORYCLIA [id number] [place] [address] [place] ALP [Catalytic activity/Vol] 131 U/L High 34-123 [facility] Comment on above: Order Comment: Speci men Type: BLOOD SPECIMENOrdering Facility: [facility] Address: [address] [place] [address] Performed By: #### 2 4328, ####SALGUERO LABORATORYCLIA [id number] [place] [address] [place] ALT [Catalytic activity/Vol] 665 U/L High 7-38 [facility] Comment on above: Order Comment: Speci men Type: BLOOD SPECIMENOrdering Facility: [facility] Address: [address] [place] [address] Performed By: #### 2 8, ####SALGUERO LABORATORYCLIA [id number] [place] [address] [place] Anion gap [Moles/Vol] 6 mmol/L Low 9-18 [facility] Comment on above: Order Comment: Speci men Type: BLOOD SPECIMENOrdering Facility: [facility] Address: [address] [place] [address] Performed By: #### 2 8, ####SALGUERO LABORATORYCLIA [id number] [address] [place] AST [Catalytic activity/Vol] 319 U/L High 13-35 [facility] Comment on above: Order Comment: Speci men Type: BLOOD SPECIMENOrdering Facility: [facility] Address: [address] [place] [address] Performed By: #### 2 432-8, ####SALGUERO LABORATORYCLIA [id number] [address] [place] Bilirubin [Mass/Vol] 0.4 mg/dL Normal 0.2-1.3 [facility] Comment on above: Order Comment: Speci men Type: BLOOD SPECIMENOrdering Facility: [facility] Address: [address] [address] Performed By: #### 2 43212-28, ####SALGUERO LABORATORYCLIA [id number] [place] [address] [place] Calcium [Mass/Vol] 8.5 mg/dL Normal 8.5-10.2 [facility] Comment on above: Order Comment: Speci men Type: BLOOD SPECIMENOrdering Facility: [facility] Address: [address] [address] Performed By: #### 2 8, ####SALGUREO LABORATORYCLIA [id number] [place] [address] [place] Chloride [Moles/Vol] 102 mmol/L Normal 97-105 [facility] Comment on above: Order Comment: Speci men Type: BLOOD SPECIMENOrdering Facility: [facility] Address: [address] [address] Performed By: #### 2 4323-05, ####SALGUERO LABORATORYCLIA [id number] [place] [address] [place] CO2 [Moles/Vol] 34 mmol/L High 22-30 [facility] Comment on above: Order Comment: Speci men Type: BLOOD SPECIMENOrdering Facility: [facility] Address: [address] [address] Performed By: #### 2 43212-28, ####SALGUERO LABORATORYCLIA [id number] [place] [address] [place] Creatinine [Mass/Vol] 0.70 mg/dL Normal 0.58-0.96 [facility] Comment on above: Order Comment: Speci men Type: BLOOD SPECIMENOrdering Facility: [facility] Address: [address] [address] Performed By: #### 2 4328, ####SALGUERO LABORATORYCLIA [id number] [place] [address] [place] ESTIMATED GLOMERULAR FILTRATION RATE 120 mL/min/1.73m??? Normal >=60 [facility] Comment on above: Order Comment: Shaquille hernandez Type: BLOOD SPECIMENOrdering Facility: [facility] Address: [address] [id number] Result Comment: Columba mated Glomerular Filtration Rate (eGFR) is calculated using the 2020 CKD-EPI creatinine equation. This equation utilizes serum creatinine, sex, and age as parameters. The creatinine assay has traceable calibration to isotope dilution-mass spectrometry. Refer to KDIGO guidelines for clinical interpretation. In patients with unstable renal function, e.g. those with acute kidney injury, the eGFR may not accurately reflect actual GFR. Performed By: #### 2 4323-8, ####COVELO LABORATORYCLIA [id number] [place] [address] [place] Glucose [Mass/Vol] 85 mg/dL Normal 74-99 [facility] Comment on above: Order Comment: Shaquille hernandez Type: BLOOD SPECIMENOrdering Facility: [facility] Address: [place] [address] Result Comment: The [place] Diabetes Association (ADA) provides guidance for cutoff [...] Standards of Medical Care in Diabetes 2016, [place] Diabetes Association. Diabetes Care. 2016.39(Suppl 1). Performed By: #### 2 4323-8, ####COVELO LABORATORYCLIA [id number] [place] [address] [place] Potassium [Moles/Vol] 3.7 mmol/L Normal 3.7-5.1 [facility] Comment on above: Order Comment: Shaquille hernandez Type: BLOOD SPECIMENOrdering Facility: [facility] Address: [address] [id number] Performed By: #### 2 4323-8, ####SALGUERO LABORATORYCLIA [id number] [address] [place] Protein [Mass/Vol] 6.4 g/dL Normal 6.3-8.0 [facility] Comment on above: Order Comment: Speci men Type: BLOOD SPECIMENOrdering Facility: [facility] Address: [address] [place] [address] Performed By: #### 2 4323-8, ####SALGUERO LABORATORYCLIA [id number] [address] [id number] [place] Sodium [Moles/Vol] 142 mmol/L Normal 136-144 [facility] Comment on above: Order Comment: Speci men Type: BLOOD SPECIMENOrdering Facility: [facility] Address: [address] [place] [address] Performed By: #### 2 4323-8, ####SALGUERO LABORATORYCLIA [id number] [address] [place] Urea nitrogen [Mass/Vol] 3 mg/dL Low 7-21 [facility] Comment on above: Order Comment: Speci men Type: BLOOD SPECIMENOrdering Facility: [facility] Address: [address] [place] [address] Performed By: #### 2 4323-8, ####SALGUERO LABORATORYCLIA [id number] [address] [place] HCG Preg Ur Qlon 11-21-2022 HCG ( test) Ql (U) Negative Normal Negative [facility] Comment on above: Order Comment: Speci men Type: URINE SPECIMENOrdering Facility: [facility] Address: [address] [place] [address] Result Comment: This test is intended to aid in the early detection of . Very dilute urine samples, as indicated by a low specific gravity, may not contain employee representative levels of hCG. This test detects intact hCG only. This test does not reliably detect hCG degradation products, including free-beta subunit and beta-core fragment. Therefore, this test may show reduced reactivity in urine after 8 weeks gestation. A number of conditions other than , including trophoblastic disease and certain non-trophoblastic neoplasms cause elevated levels of hCG. As with any assay employing mouse antibodies, the possibility exists for interference by human anti-mouse antibodies (HAMA) in the specimen. The test provides a presumptive diagnosis for . Performed By: #### 2 106-3 ####COVELO LABORATORYCLIA [id number] [place] [address] [place] [facility] MRI 3D POST PROCESSINGon MRI 3D POST PROCESSING * * *Final Report * * * DATE OF EXAM: Nov 21 2022 11:26AM [facility] 0280 - MRI 3D POST PROCESSING / PROCEDURE REASON: Abdominal pain, acute, nonlocalized * * * * Physician Interpretation * * * * MRI/MRCP ABDOMEN WITHOUT AND WITH CONTRAST, WITH 3-D RECONSTRUCTIONS 11/21/2022 11:43 AM HISTORY: Abn liver function tests (LFTs) TECHNIQUE: Multisequential, multiplanar MR imaging of the abdomen was performed both prior to and following the administration of intravenous gadolinium-based contrast. 3D image post-processing was performed at the request of the referring physician, on the MR scanner workstation under physician supervision. Contrast: IV: 15 mL of Dotarem COMPARISON: Abdominal ultrasound 11/20/2022 RESULT: Pancreas: No mass. No duct dilation. No divisum. Biliary: Mild dilatation of the common bile duct up to 7 mm in diameter. No filling defect in the common bile duct. Gallbladder is surgically absent. Liver: No mass. Normal morphology. Portal vein and branches, splenic vein, superior mesenteric vein and hepatic veins are patent. Spleen: No mass. No splenomegaly. Adrenals: No mass. Kidneys: The kidneys enhance symmetrically. No hydronephrosis. Misc: Visualized loops of bowel are nondistended. No ascites. No abdominal lymphadenopathy. No abdominal aortic aneurysm. - - IMPRESSION: MILD DILATATION OF THE COMMON BILE DUCT LIKELY DUE TO PRIOR CHOLECYSTECTOMY. NO FILLING DEFECT IN THE COMMON BILE DUCT. Esthetician: [facility] HOSPITALRaj Transcribe Date/Time: Nov 21 2022 12:53P Dictated by : MARIA EUGENIA BARBER MD This examination was interpreted and the report reviewed and electronically signed by: MARIA EUGENIA BARBER MD on Nov 21 2022 1:10PM EST [id number] Normal [facility] MRI PANC/MATT WO/W IVCONon MRI PANC/MATT WO/W IVCON * * *Final Repor t* * * DATE OF EXAM: Nov 21 2022 11:43AM [facility] 0730 - MRI PANC/MATT WO/W IVCON / PROCEDURE REASON: Abn liver function tests (LFTs) * * * * Physician Interpretation * * * * MRI/MRCP ABDOMEN WITHOUT AND WITH CONTRAST, WITH 3-D RECONSTRUCTIONS 11/21/2022 11:43 AM HISTORY: Abn liver function tests (LFTs) TECHNIQUE: Multisequential, multiplanar MR imaging of the abdomen was performed both prior to and following the administration of intravenous gadolinium-based contrast. 3D image post-processing was performed at the request of the referring physician, on the MR scanner workstation under physician supervision. Contrast: IV: 15 mL of Dotarem COMPARISON: Abdominal ultrasound 11/20/2022 RESULT: Pancreas: No mass. No duct dilation. No divisum. Biliary: Mild dilatation of the common bile duct up to 7 mm in diameter. No filling defect in the common bile duct. Gallbladder is surgically absent. Liver: No mass. Normal morphology. Portal vein and branches, splenic vein, superior mesenteric vein and hepatic veins are patent. Spleen: No mass. No splenomegaly. Adrenals: No mass. Kidneys: The kidneys enhance symmetrically. No hydronephrosis. Misc: Visualized loops of bowel are nondistended. No ascites. No abdominal lymphadenopathy. No abdominal aortic aneurysm. - - IMPRESSION: MILD DILATATION OF THE COMMON BILE DUCT LIKELY DUE TO PRIOR CHOLECYSTECTOMY. NO FILLING DEFECT IN THE COMMON BILE DUCT. Esthetician: FELICIA Transcribe Date/Time: Nov 21 2022 12:53P Dictated by : MARIA EUGENIA BARBER MD This examination was interpreted and the report reviewed and electronically signed by: MARIA EUGENIA BARBER MD on Nov 21 2022 1:10PM EST [id number] Normal [facility] Magnesium SerPl-mCncon 11-21 Magnesium [Mass/Vol] 2.0 mg/dL Normal 1.7-2.3 [facility] Comment on above: Order Comment: Speci men Type: BLOOD SPECIMENOrdering Facility: [facility] Address: [address] [place] [phone] Performed By: #### 2 7863-8, 88963-6 ####SALGUERO LABORATORYCLIA [id number] [address] [place] THERAPY NTon 11-21-2022 THERAPY NT HNO ID: [id number] Author: Virginie Naranjo PT Service: Physical Therapy Author Type: Physical Therapist Type: Therapy (PT/OT/Speech/Resp) Filed: 11/21/2022 1:17 PM Note Text: PHYSICAL THERAPY MISSED VISIT SERVICE DATE: 11/21/2022 SERVICE TIME: 1415 to 1415 ROOM: [place] [address] Patient not seen due to Test/Procedure. Patient is at [facility]. Will check back. Patient cleared by RN when she returns from [facility]. SIGNATURE: Virginie Naranjo PT PATIENT NAME: Sonia Szymanski DATE: November 21, 2022 TIME: 1:14 PM Normal [facility] TOX SCREEN ROUT URon 023 Amphetamines Confirm (U) [Mass/Vol] Negative Normal Negative [facility] Comment on above: Order Comment: Speci men Type: URINE SPECIMENOrdering Facility: [facility] Address: [address] [place] [address] Result Comment: Cuto ff threshold at 1000 ng/mL. Performed By: #### U TOX2 ####SALGUERO LABORATORYCLIA [id number] [address] [place] BARBITURATES, URINE Negative Normal Negative [facility] Comment on above: Order Comment: Speci men Type: URINE SPECIMENOrdering Facility: [facility] Address: [address] [place] [address] Result Comment: Cuto ff threshold at 200 ng/mL. Performed By: #### U TOX2 ####SALGUERO LABORATORYCLIA [id number] [place] [address] [place] BENZODIAZEPINES, UR Negative Normal Negative [facility] Comment on above: Order Comment: Speci men Type: URINE SPECIMENOrdering Facility: [facility] Address: [address] [place] [address] Result Comment: Cuto ff threshold at 200 ng/mL. Performed By: #### U TOX2 ####SALGUERO LABORATORYCLIA [id number] [place] [address] [place] CANNABINOIDS,URINE Negative Normal Negative [facility] Comment on above: Order Comment: Speci men Type: URINE SPECIMENOrdering Facility: [facility] Address: [address] [place] [address] Result Comment: Cuto ff threshold at 50 ng/mL. Performed By: #### U TOX2 ####SALGUERO LABORATORYCLIA [id number] [place] [address] [place] Cocaine Ql (U) Negative Normal Negative [facility] Comment on above: Order Comment: Speci men Type: URINE SPECIMENOrdering Facility: [facility] Address: [address] [place] [address] Result Comment: Cuto ff threshold at 300 ng/mL. Performed By: #### U TOX2 ####SALGUERO LABORATORYCLIA [id number] [place] [address] [place] Ethanol (U) [Mass/Vol] <11 Normal <11 [facility] Comment on above: Order Comment: Speci men Type: URINE SPECIMENOrdering Facility: [facility] Address: [address] [place] [address] Performed By: #### U TOX2 ####SALGUERO LABORATORYCLIA [id number] [address] [place] Opiates Screen Ql (U) Negative Normal Negative [facility] Comment on above: Order Comment: Speci men Type: URINE SPECIMENOrdering Facility: [facility] Address: [address] [place] [address] Result Comment: Cuto ff threshold at 300 ng/mL. Performed By: #### U TOX2 ####SALGUERO LABORATORYCLIA [id number] [address] [place] oxyCODONE cutoff Screen (U) [Mass/Vol] Positive Abnormal Negative [facility] Comment on above: Order Comment: Speci men Type: URINE SPECIMENOrdering Facility: [facility] Address: [address] [address] Result Comment: Cuto ff threshold at 100 ng/mL. Performed By: #### U TOX2 ####SALGUERO LABORATORYCLIA [id number] [address] [place] Phencyclidine Ql (U) Negative Normal Negative [facility] Comment on above: Order Comment: Shaquille hernandez Type: URINE SPECIMENOrdering Facility: [facility] Address: [address] [place] [address] Result Comment: Cuto ff threshold at 25 ng/mL. Performed By: #### U TOX2 ####COVELO LABORATORYCLIA [id number] [address] [place] ALLIED HEALTHon 11-20-2022 ALLIED HEALTH HNO ID: [id number] Author: RT Scar(R) Service: ? Author Type: Technologist Type: Allied Health Filed: 11/20/2022 10:08 AM Note Text: Radiology Service Progress Note PATIENT NAME: Sonia Szymanski DATE OF SERVICE: November 20, 2022 TIME: 10:07 AM PATIENT IDENTITY VERIFICATION COMPLETED USING TWO (2) IDENTIFIERS: Name and Date of confirmed by patient verbally and Name and Date of confirmed by identification band. FALL SCREENING: Has the patient had 2 falls in the last year or 1 fall with injury or currently using an Ambulatory Assistive Device (Walker, Cane, Wheelchair, Crutches, etc.)? Inpatient: Screened on floor PATIENT GENDER DATA: Female. status: Unknown status: NO. PATIENT RELEVANT IMPLANT DATA REVIEWED: Not Applicable RADIOLOGY DEPARTMENT: Ultrasound PERIPHERAL IV DATA: Not applicable SIGNED BY: RT Scar(R) November 20, 2022 10:07 AM Normal [facility] BOBBY BY IFA SCREENon 11-20-19 23 Nuclear Ab IF (S) [Titer] Negative Normal Negative [facility] Comment on above: Order Comment: Shaquille hernandez Type: BLOOD SPECIMEN [facility] Address: [address] [place] [address] Result Comment: Anti -nuclear antibody test is used as an aid in diagnosis of systemic autoimmune diseases. Where positive and clinically warranted, follow-up using disease-specific testing is recommended. Low positive titers are not uncommon with advanced age, certain chronic infections, and malignancies among others. Test methodology: Indirect fluorescence immunoassay (IFA) using HEp-2 cells. Performed By: #### 2 4323-8, 3040-3, 60481-4 #### [facility] CLIA [id number] [address] CBC panel Auto (Bld)on 11-20 Erythrocyte distribution width (RBC) [Ratio] 13.7 % Normal 11.5-15.0 [facility] Comment on above: Order Comment: Speci men Type: BLOOD SPECIMENOrdering Facility: [facility] Address: [address] [place] [address] Performed By: #### 5 8410-2 ####[facility] [id number] [address] Hematocrit (Bld) [Volume fraction] 32.1 % Low 36.0-46.0 [facility] Comment on above: Order Comment: Speci men Type: BLOOD SPECIMENOrdering Facility: [facility] Address: [address] [place] [address] Performed By: #### 5 8410-2 ####[facility] [id number] [address] Hemoglobin (Bld) [Mass/Vol] 10.0 g/dL Low 11.5-15.5 [facility] Comment on above: Order Comment: Speci men Type: BLOOD SPECIMENOrdering Facility: [facility] Address: [address] [place] [address] Performed By: #### 5 8410-2 ####[facility] [id number] [address] MCH (RBC) [Entitic mass] 25.3 pg Low 26.0-34.0 [facility] Comment on above: Order Comment: Speci men Type: BLOOD SPECIMENOrdering Facility: [facility] Address: [address] [place] [address] Performed By: #### 5 8410-2 ####[facility] [id number] [address] MCHC (RBC) [Mass/Vol] 31.2 g/dL Normal 30.5-36.0 [facility] Comment on above: Order Comment: Speci men Type: BLOOD SPECIMENOrdering Facility: [facility] Address: [address] [address] Performed By: #### 5 8410-2 ####[facility] [id number] [place] [address] [place] MCV (RBC) [Entitic vol] 81.1 fL Normal 80.0-100.0 [facility] Comment on above: Order Comment: Speci men Type: BLOOD SPECIMENOrdering Facility: [facility] Address: [address] [address] Performed By: #### 5 8410-2 ####[facility] [id number] [place] [address] [place] Nucleated RBC (Bld) [#/Vol] 10*3/uL Normal <0.01 [facility] Comment on above: Order Comment: Speci men Type: BLOOD SPECIMENOrdering Facility: [facility] Address: [address] [address] Performed By: #### 5 8410-2 ####[facility] [id number] [address] [place] Platelet mean volume (Bld) [Entitic vol] 10.0 fL Normal 9.0-12.7 [facility] Comment on above: Order Comment: Speci men Type: BLOOD SPECIMENOrdering Facility: [facility] Address: [address] [place] [address] Performed By: #### 5 8410-2 ####[facility] [id number] [address] [place] Platelets (Bld) [#/Vol] 293 10*3/uL Normal 150-400 [facility] Comment on above: Order Comment: Speci men Type: BLOOD SPECIMENOrdering Facility: [facility] Address: [address] [place] [address] Performed By: #### 5 8410-2 ####[facility]IA [id number] [place] [address] [place] RBC (Bld) [#/Vol] 3.96 10*6/uL Normal 3.90-5.20 [facility] Comment on above: Order Comment: Speci men Type: BLOOD SPECIMENOrdering Facility: [facility] Address: [place] [address] Performed By: #### 5 8410-2 ####[facility] [id number] [address] [facility] WBC (Bld) [#/Vol] 6.29 10*3/uL Normal 3.70-11.00 [facility] Comment on above: Order Comment: Speci men Type: BLOOD SPECIMENOrdering Facility: [facility] Address: [address] [phone] Performed By: #### 5 8410-2 ####[facility]IA [id number] [place] [id number] [facility] CONSULT PROGon 11-20-2022 CONSULT PROG HNO ID: [id number] Author: Mario Bowen MD Service: Gastroenterology Author Type: Physician Type: Consult Progress Note Filed: 11/20/2022 10:13 AM Note Text: GASTROENTEROLOGY CONSULT PROGRESS NOTE Patient Name: Sonia Szymanski SERVICE DATE: November 20, 2022 SERVICE TIME: 10:04 AM ASSESSMENT: Elevated LFTs. DDx Choledocholithiasis, COVID, Hepatitis, DILI Persistent nausea, non-bloody emesis and anorexia x 2-3 week. DDx gastritis (COVID related, bile), PUD, bilary etiologies, esophagitis, gastroparesis, IBS vs IBD. Hx of diarrhea Anemia S/P recent COVID in September 2022. PLAN: At this time I recommend: - Agree with getting RUQ US, consider MRCP vs ERCP based on findings. May need repeat viral Hep profile pending results. - Continue Protonix 40 mg BID , Carafate 1 gm BID - Stool log: Check stool studies (FL, Cx, OANDP, C.diff, OB) if diarrhea relapse. - Await iron studies, folate and vitamin B12 - Monitor CBC, CMP and mag daily - Consider repeat EGD based on clinical course - Future colonoscopy - Further recommendations to be determined based on findings of above evaluation and clinical course - Recommend close follow up with established [facility] following discharge ___ INTERVAL HPI: Reports that her pain is well controlled with pain meds. RUQ and RLQ pain. Nausea, no vomiting. No stools since admit. Afebrile. LFTs elevated. PHYSICAL EXAM: Patient Vitals for the past 24 hrs: BP Temp Temp src Pulse Resp SpO2 11/20/22 0821 102/73 36.6 ?C (97.9 ?F) Oral 80 18 100 % 11/20/22 0609 -- -- -- -- 18 -- 11/20/22 0456 114/80 36.4 ?C (97.5 ?F) Oral 80 18 95 % 11/20/22 0336 -- -- -- -- 18 -- 11/20/22 0040 114/73 36.4 ?C (97.5 ?F) Oral 81 20 95 % 11/19/22 2358 -- -- -- -- 18 -- 11/19/22 2115 -- -- -- -- 18 -- 11/19/22 1559 109/72 36.5 ?C (97.7 ?F) Oral 65 18 97 % 11/19/22 1148 121/85 36.5 ?C (97.7 ?F) Oral 88 16 99 % GENERAL: Alert and oriented x 3. Appears comfortable. NAD HEENT: No pallor. No scleral icterus LUNGS: Clear to auscultation anteriorly CARDIAC: RRR ABDOMEN: Soft. Mildly distended. Non tender. Bowel sounds normal. No guarding or rebound tenderness. EXTREMITIES: No edema to MATT lower extremities LABS: CBC, Coags, BMP, Mg, Phos Recent Labs 11/20/22 0449 11/19/22 0402 11/18/222009 WBC 6.29 7.48 7.47 HB 10.0* 9.3* 10.5* HCT 32.1* 30.0* 33.4* PLT 293 280 314 NA 140 140 140 K 3.7 4.1 4.3 CHLOR 102 106* 104 CO2 29 26 26 BUN 3* 7 9 CREAT 0.63 0.51* 0.68 GLUC 88 106* 97 CA 8.8 8.1* 8.8 MG 1.8 1.4* 1.6* Liver Function, Amylase, AND Lipase Recent Labs 11/20/22 0449 11/18/222009 TPROT 6.8 7.0 ALB 3.9 4.0 ALT 734* 101* AST 585* -- ALKPHOS 133* 80 TBILI 0.5 0.3 LIPASE 26 24 MEDICATIONS: Current Facility-Administered Medications Medication Dose Route Frequency dextrose 40 % 15 g 15 g ORAL PRN Or glucagon 1 mg injection 1 mg INTRAMUSCULAR PRN Or dextrose 10% iv bolus 12.5 g INTRAVENOUS PRN insulin lispro injection (rapid acting) (ADMELOG) SUBCUTANEOUS w MEALS insulin lispro injection (rapid acting) (ADMELOG) SUBCUTANEOUS AT BEDTIME polyethylene glycol 3350 17 g packet (MIRALAX, GLYCOLAX) 17 g ORAL DAILY PRN benzocaine-menthol 1 Lozenge (CEPACOL) 1 Lozenge MUCOUS MEMBRANE (TOPICAL MOUTH AND THROAT) q 2 H PRN benzonatate 100 mg cap(s) (TESSALON PERLE) 100 mg ORAL TID PRN calcium carbonate 1,000 mg chewable tab(s) (TUMS) 1,000 mg ORAL TID PRN melatonin 3 mg tab(s) 3 mg ORAL AT BEDTIME PRN senna-docusate 8.6-50 mg 1 tablet (SENNA-S) 1 tablet ORAL BID PRN ondansetron (PF) 4 mg injection (ZOFRAN) 4 mg INTRAVENOUS q 6 H PRN prochlorperazine 10 mg injection (COMPAZINE) 10 mg INTRAVENOUS q 6 H PRN HYDROmorphone 0.5 mg injection (DILAUDID) 0.5 mg INTRAVENOUS q 3 H PRN ipratropium-albuterol 3 mL nebulizer solution (DUONEB) 3 mL INHALATION q [address] 40 mg tab(s) (PROTONIX) 40 mg ORAL BID AC (0600/1600) oxyCODONE IR 5 mg tab(s) (ROXICODONE) 5 mg ORAL q 4 H PRN busPIRone 5 mg tab(s) (BUSPAR) 5 mg ORAL TID divalproex DR 250 mg tab(s) (DEPAKOTE) 250 mg ORAL DAILY divalproex DR 500 mg tab(s) (DEPAKOTE) 500 mg ORAL AT BEDTIME fludrocortisone 0.1 mg tab(s) (FLORINEF) 0.1 mg ORAL DAILY FLUoxetine 40 mg cap(s) (PROzac) 40 mg ORAL DAILY hydrOXYchloroQUINE 200 mg tab(s) (PLAQUENIL) 200 mg ORAL BID levothyroxine 125 mcg tab(s) (SYNTHROID) 125 mcg ORAL DAILY (6 AM) hydrocortisone sodium succinate (PF) 15 mg injection (Solu-CORTEF) 15 mg OTHER DAILY hydrocortisone sodium succinate (PF) 7.5 mg injection (Solu-CORTEF) 7.5 mg INTRAVENOUS DAILY (2 PM) hydrocortisone sodium succinate (PF) 7.5 mg injection (Solu-CORTEF) 7.5 mg OTHER DAILY (7 PM) NaCl 0.9% iv flush bag 20 mL INTRAVENOUS PRN ferric gluconate 125 mg in NaCl 0.9% 100 mL (FERRLECIT) 125 mg INTRAVENOUS DAILY AT 6 PM sucralfate 1 g tab(s) (CA (more content not included)... Normal [facility] Comprehensive metabolic 2000 panelon 11-20-2022 Albumin [Mass/Vol] 3.9 g/dL Normal 3.9-4.9 [facility] Comment on above: Order Comment: Specvirginia hernandez Type: BLOOD SPECIMEN [facility] Address: [address] [place] [phone] Performed By: #### 2 4323-8, 3039-3, #### [facility] CLIA [id number] [address] [place] [address] [place] ALP [Catalytic activity/Vol] 133 U/L High 34-123 [facility] Comment on above: Order Comment: Speci mary Type: BLOOD SPECIMEN [facility] Address: [address] [place] [address] Performed By: #### 2 4323-8, 0-3, #### [facility] CLIA [id number] [address] [place] [address] [place] ALT [Catalytic activity/Vol] 734 U/L High 7-38 [facility] Comment on above: Order Comment: Speci men Type: BLOOD SPECIMEN [facility] Address: [address] [place] [address] Performed By: #### 2 4323-8, 3040-3, 15554-1 #### [facility] CLIA [id number] [address] [place] [address] [place] Anion gap [Moles/Vol] 9 mmol/L Normal 9-18 [facility] Comment on above: Order Comment: Speci men Type: BLOOD SPECIMEN [facility] Address: [address] [place] [address] Performed By: #### 2 4323-8, 0-3, #### [facility] CLIA [id number] [address] [place] AST [Catalytic activity/Vol] 585 U/L High 13-35 [facility] Comment on above: Order Comment: Speci men Type: BLOOD SPECIMEN [facility] Address: [address] [place] [address] Performed By: #### 2 4323-8, 3039-3, #### [facility] CLIA [id number] [address] [place] Bilirubin [Mass/Vol] 0.5 mg/dL Normal 0.2-1.3 [facility] Comment on above: Order Comment: Speci men Type: BLOOD SPECIMEN [facility] Address: [address] [address] Performed By: #### 2 4323-8, 3040-3, #### [facility] CLIA [id number] [address] [facility] Calcium [Mass/Vol] 8.8 mg/dL Normal 8.5-10.2 [facility] Comment on above: Order Comment: Speci men Type: BLOOD SPECIMEN [facility] Address: [address] [place] [address] Performed By: #### 2 4323-8, 3040-3, #### [facility] CLIA [id number] [address] [place] [address] [place] Chloride [Moles/Vol] 102 mmol/L Normal 97-105 [facility] Comment on above: Order Comment: Speci men Type: BLOOD SPECIMEN [facility] Address: [address] [place] [address] Performed By: #### 2 4323-8, 3040-3, #### [facility] CLIA [id number] [address] [place] [address] [place] CO2 [Moles/Vol] 29 mmol/L Normal 22-30 [facility] Comment on above: Order Comment: Speci men Type: BLOOD SPECIMEN [facility] Address: [address] [place] [address] Performed By: #### 2 4323-8, 3040-3, #### [facility] CLIA [id number] [address] [facility] Creatinine [Mass/Vol] 0.63 mg/dL Normal 0.58-0.96 [facility] Comment on above: Order Comment: Speci men Type: BLOOD SPECIMEN [facility] Address: [address] [place] [address] Performed By: #### 2 4323-8, 3040-3, #### [facility] CLIA [id number] [address] ESTIMATED GLOMERULAR FILTRATION RATE 123 mL/min/1.73m??? Normal >=60 [facility] Comment on above: Order Comment: Speci men Type: BLOOD SPECIMEN [facility] Address: [address] [place] [address] Result Comment: Columba mated Glomerular Filtration Rate (eGFR) is calculated using the 2020 CKD-EPI creatinine equation. This equation utilizes serum creatinine, sex, and age as parameters. The creatinine assay has traceable calibration to isotope dilution-mass spectrometry. Refer to KDIGO guidelines for clinical interpretation. In patients with unstable renal function, e.g. those with acute kidney injury, the eGFR may not accurately reflect actual GFR. Performed By: #### 2 4323-8, 0-3, #### [facility] CLIA [id number] [address] [place] [address] [place] Glucose [Mass/Vol] 88 mg/dL Normal 74-99 [facility] Comment on above: Order Comment: Shaquille hernandez Type: BLOOD SPECIMEN [facility] Address: [address] [place] [phone] Result Comment: The [place] Diabetes Association (ADA) provides guidance for cutoff [...] Standards of Medical Care in Diabetes 2016, [place] Diabetes Association. Diabetes Care. 2016.39(Suppl 1). Performed By: #### 2 4323-8, 0-3, #### [facility] CLIA [id number] [address] [place] [address] [place] Potassium [Moles/Vol] 3.7 mmol/L Normal 3.7-5.1 [facility] Comment on above: Order Comment: Shaquille hernandez Type: BLOOD SPECIMEN [facility] Address: [address] [place] [phone] Performed By: #### 2 4323-8, 3040-3, #### [facility] CLIA [id number] [address] [place] [address] [place] Protein [Mass/Vol] 6.8 g/dL Normal 6.3-8.0 [facility] Comment on above: Order Comment: Shaquille hernandez Type: BLOOD SPECIMEN [facility] Address: [address] [place], [place] [phone] Performed By: #### 2 4323-8, 3040-3, 07561-6 #### [facility] CLIA [id number] [address] [place] [address] [place] Sodium [Moles/Vol] 140 mmol/L Normal 136-144 [facility] Comment on above: Order Comment: Speci men Type: BLOOD SPECIMEN [facility] Address: [address] [place] [address] Performed By: #### 2 4323-8, 3040-3, #### [facility] CLIA [id number] [address] [place] [address] [place] Urea nitrogen [Mass/Vol] 3 mg/dL Low 7-21 [facility] Comment on above: Order Comment: Nonii men Type: BLOOD SPECIMEN [facility] Address: [address] [place] [address] Performed By: #### 2 4323-8, 3040-3, #### [facility] CLIA [id number] [address] [place] HAV IgM Ser Qlon 11-20-2022 HAV IgM Ql (S) Negative Normal Negative [facility] Comment on above: Order Comment: Speci men Type: BLOOD SPECIMENOrdering Facility: [facility] Address: [address] [place] [address] Result Comment: No e vidence of recent infection with Hepatitis A virus. Performed By: #### 3 1204-1, 5195-3, 59990-4 ####[facility] [id number] [address] [place] HBV core IgM Ser Qlon 2022 HBV core IgM Ql (S) Negative Normal Negative [facility] Comment on above: Order Comment: Nonii men Type: BLOOD SPECIMENOrdering Facility: [facility] Address: [address] [place] [address] Result Comment: No e vidence of recent infection with Hepatitis B virus. Should recent infection be suspected, repeat testing may be considered 3-4 weeks after this draw. Performed By: #### 3 1204-1, 5195-3, 19216-6 ####[facility] [id number] [place] [address] [place] HBV surface Ag Ser Qlon - HBV surface Ag Ql (S) Negative Normal Negative [facility] Comment on above: Order Comment: Speci men Type: BLOOD SPECIMENOrdering Facility: [facility] Address: [address] [place] [address] Performed By: #### 3 1204-1, 5195-3, 57421-6 ####[facility] [id number] [place] [address] [place] HCV Ab Ser Qlon 11-20-2022 HCV Ab Ql (S) Negative Normal Negative [facility] Comment on above: Order Comment: [facility] Type: BLOOD SPECIMENOrdering Facility: [facility] Address: [address] [place] [address] Result Comment: The result suggests no evidence of active infection with Hepatitis C virus. Should recent infection be suspected, repeat testing may be considered 4-6 weeks after this draw. Performed By: #### 1 6128-1 ####[facility] [id number] [place] [address] [place] Lipase SerPl-cCncon 11-20-19 23 Lipase [Catalytic activity/Vol] 26 U/L Normal 16-61 [facility] Comment on above: Order Comment: Speci men Type: BLOOD SPECIMEN [facility] Address: [address] [place] [address] Performed By: #### 2 4323-8, 3040-3, 51912-7 #### [facility] CLIA [id number] [address] [place] [address] [place] Magnesium SerPl-mCncon 11-20 Magnesium [Mass/Vol] 1.8 mg/dL Normal 1.7-2.3 [facility] Comment on above: Order Comment: Speci men Type: BLOOD SPECIMEN [facility] Address: [place] [address] Performed By: #### 2 4323-8, 3040-3, 52569-7 #### [facility] CLIA [id number] [address] [place] [address] [address] [facility] NUTRITIONon 11-20-2022 NUTRITION HNO ID: [id number] Author: Ronaldo Piedra RD Service: Nutrition Therapy Author Type: Registered Dietitian Type: Nutrition Filed: 11/20/2022 2:37 PM Note Text: NUTRITION THERAPY INITIAL ASSESSMENT SERVICE DATE: 11/20/2022 SERVICE TIME: 1:42 pm Nutrition Assessment: Recommended Malnutrition Diagnosis: Mild Protein-Calorie Malnutrition In the context of: Chronic Illness or Injury Based on: Subcutaneous Fat Loss Estimated kilocalorie needs: 2980-9951 Calorie Calculation Method: 20-25 kcals/kg Estimated protein needs (grams): 77-92 Grams protein determined by: 1.0 - 1.2 g/kg Care Plan: Follow for diet advancement to goal Supplements: Ensure Clear Monitor and Evaluation: Meet greater than 75% of estimated needs HPI: 27 year old female admitted with nausea, vomiting, abdominal pain, diarrhea, elevated LFTs, weakness, Wabasso's, Graves, depression, anxiety, DM. GI following. Intake History: Nutrition Intake Prior to Admission: Less than 75% estimated energy needs greater than 7 days Decreased appetite/PO intake due to nausea. We discussed ensure clear. Diet Orders (From admission, onward) Start Ordered 11/20/22 1445 DIET SUPPLEMENTS NOW Question Answer Comment Supplement 1 ENSURE CLEAR APPLE Supplement 1 Frequency THREE TIMES/DAY WITH MEALS 11/20/22 1435 11/19/22 1030 DIET LIQUID START NOW Question: Liquid Diet Answer: CLEAR LIQUID 11/19/22 1020 Anthropometrics: Height: 165.1 cm (5' 5") Weight: 77.1 kg (169 lb 15.6 oz) Dosing Weight: 77.1 kg (169 lb 15.6 oz) Usual Weight: 81.2 kg (179 lb 0.2 oz) Body mass index is 28.29 kg/m?. Weight change percentage over time: 5.1% weight loss x 2.5 months Physical Exam: Subcutaneous fat loss: Mild Muscle loss: No muscle loss Potential Signs of Inflammation: Hyperglycemia, Chronic condition MNT Billing: $ Initial Assessment: 1-15 minutes SIGNATURE: Ronaldo Piedra RD PATIENT NAME: Sonia Szymanski DATE: November 20, 2022 TIME: 2:35 PM Normal [facility] PT panel Coag (PPP)on 2022 INR Coag (PPP) [Relative time] 1.0 {INR} Normal 0.9-1.3 [facility] Comment on above: Order Comment: Shaquille hernandez Type: BLOOD SPECIMEN [facility] Address: [address] [place], [place] [phone] Result Comment: Jacquelyn min K Antagonist (VKA) Therapeutic Range: INR 2 to 3 (Target INR of 2.5) Note: For patients treated with VKA drugs, such as warfarin, the [employer] 2012 Guideline recommends a therapeutic INR range of 2 to 3 (target INR of 2.5). This recommendation includes high-risk patients with antiphospholipid syndrome with previous arterial or venous thromboembolism, current-generation mechanical or bioprosthetic aortic heart valve replacement. Note: Patients with mechanical aortic valve replacement and additional risk factors for thromboembolic events (atrial fibrillation, previous thromboembolism, LV dysfunction, hypercoagulable conditions) or an older generation mechanical AVR (i.e., ball in-Cage) or any mechanical MVR should have a INR therapeutic range of 2.5 to 3.5 (target INR of 3). Miriam GH, et al. Chest 2012, 141:7S-47S Jannet RA, et al. [facility] 2017, 70: 252-289 Performed By: #### 3 4528-0 #### [facility] CLIA [id number] [address] [place] PT Coag (PPP) [Time] 10.2 s Normal 9.7-13.0 [facility] Comment on above: Order Comment: Shaquille hernandez Type: BLOOD SPECIMEN Ordering Facility[facility] Address: [address] [place] [address] Performed By: #### 3 4528-0 #### [facility] CLIA [id number] [address] [place] Smooth muscle Ab Ql (S)on ACTIN SMOOTH MUSCLE IGG QUALITATIVE Negative Normal Negative [facility] Comment on above: Order Comment: Speci men Type: BLOOD SPECIMEN Ordering Facility[facility] Address: [address] [phone] Performed By: #### 2 4323-8, 3040-3, #### [facility] CLIA [id number] [address] ACTIN SMOOTH MUSCLE IGG QUANTITATIVE 5 Units Normal <20 [facility] Comment on above: Order Comment: Speci men Type: BLOOD SPECIMEN Ordering Facility: [facility] Address: [address] [place] [phone] Performed By: #### 2 4323-8, 0-3, #### [facility] CLIA [id number] [address] THERAPY NTon 11-20-2022 THERAPY NT HNO ID: [id number] Author: Thor Sosa, OT/L Service: Occupational Therapy Author Type: Occupational Therapist Type: Therapy (PT/OT/Speech/Resp) Filed: 11/20/2022 12:33 PM Note Text: Occupational Therapy Evaluation SERVICE DATE: 11/20/2022 SERVICE TIME: 1131 to 1208 ROOM: [place] [address] Recommended Discharge Disposition: Subacute/SNF Recommended Discharge Disposition Comments: vs Home OT with family assist PRN for safety, pending medical progression Recommended Discharge Disposition Due to: Patient requires daily, facility-based rehabilitation from at least one discipline due to:, ADL impairment resulting in caregiver dependence, body-weight supported gait training needs, caregiver training needs, decline in functional status requiring daily skilled care, deficits affecting dominant side, deficits affecting non-dominant side, high level balance deficits, ongoing intervention of multiple therapy disciplines Anticipated Discharge Needs: Undetermined Recommended Discharge Equipment: To Be Determined (May benefit from BSC, LH sponge) OT 6 Clicks Score: 18 Precautions/Activity Restrictions: Fall Risk, Lines/Tubes/Drains Current Hospital Course: workup Reason for Hospital Admission: nausea vomiting abd pain weakness Relevant Past Medical History: 27 yo woman with hx of migraines, Wabasso's, Grave's s/p surgery, Seizure disorder, depression, DM2 Response to Therapy Interventions: Good participation in activities, Low activity tolerance, Requires additional time to complete activities, Multiple ongoing medical issues, Coping deficits Continue skilled needs due to: Coping deficits, Functional impairment, Safety concerns Occupational Therapy Problem List: Education Deficit, Pain, Cognitive Deficit, Safety Deficits, Impaired Self Care, Decreased Activity Tolerance, Decreased Range Of Motion, Decreased Strength, Functional Mobility Impairment, Balance Impaired Cognition/Communication Deficits Responsiveness: Awake Follows Commands: 3-step Commands Cognitive Clinical Tests and Screens: 4AT Screening Cognitive Activities Performed: Coping; pt discouraged with re-occurring hosptial admissions and CLOF. Prepress Manager provides active listening and responds with H.CamronRStacie. Pt and writer technical publications discuss coping mechanisms, pt identifies deep breathing exercises and computer time as strategies to relax. Pt thankful for writer technical publications time, mood appears unaffected. 4AT Screening Assess alertness (ask patient to state their name and address): Normal (fully alert, but not agitated, throughout assessment) Ask patient: age, date of , current year, and current location: No mistakes Ask patient to "tell me the months of the year backwards order, starting with September": Starts but states <7 months / refuses to start Acute change or fluctuating mental status: No 4AT Score: 1 Delirium Positive/Negative: Negative Treatment Interventions: Education, Self Care / Home Management, Strengthening, Functional Mobility Training, Balance Training, Energy Conservation Training Plan for next visit: Bathing training, Dressing training, Chair/commode transfer training, Energy conservation, Family instruction, Fall prevention, Standing balance, Standing tolerance Home Environment Patient Lives With: Family ( and son) Assistance Available: Part-Time (SPO works) Entry To Home: Stairs, Without Rail Number Of Stairs Into Home: 1 Number Of Stairs To Bed/Bath: 0 (1st floor set-up) Tub/Shower Type: tub/shower with SC, GB, HHS Laundry: in basement; SPO can assist Equipment Owned: Walker- Wheeled, Cane, Shower Chair, Grab Bars- Shower, Hand Held Shower Prior Functional Level: Within Functional Limits, Required Assistance, History of Falls Assistance Required With: Cleaning, Laundry, Meals, Shopping, Transportation Baseline Cognition: Oriented to self, Oriented to place, Oriented to time Occupational Factors Life Roles: Parent, Spouse/Significant Other, Family Member, Friend Identified Strengths: Good Support System, Involvement in Hobbies/Leisure Activities, Access to Healthcare, Problem-Solving Skills, Follows Multi-Step Commands, Memory/Attention, Safety Awareness Identified Barriers: Difficulty with ADLs/IADLs, Fear/Anxiety, Fatigue/Endurance, Difficulty Coping Patient Report: "I'd like to go home if I can" CURRENT FUNCTIONAL STATUS: Most recent performance Current Activities of Daily Living Assist Level Additional Information Feeding Set Up Grooming Set Up (seated) Bathing Upper Body Stand By Assistance (seated) Bathing Lower Body Moderate Assistance (seated) Dressing Upper Body Stand By Assistance (seated) Dressing Lower Body Moderate Assistance (seated) Toileting Moderate Assistance Instrumental Activities of Daily Living Assist Level Additional Information Meal/Beverage Prep Cleaning Laundry Medication Management with Strategies Functional Mobility Assist Level Gerardo (more content not included)... [facility] US ABD RIGHT UPPER QUADRANTo n 11-20-2022 US ABD RIGHT UPPER QUADRANT * * *Final Report* * * DATE OF EXAM: Nov 20 2022 10:07AM U 1032 - US ABD RIGHT UPPER QUADRANT / PROCEDURE REASON: Abn liver function tests (LFTs) * * * * Physician Interpretation * * * * EXAM TITLE: US ABD RIGHT UPPER QUADRANT, US ABD SPLEEN -NB HISTORY: Abnormal liver function test. TECHNIQUE: Sonography of the right upper quadrant and spleen was performed. Images were obtained and stored in a permanent archive. MQ: URUQ_1 COMPARISON: CT of abdomen pelvis on 08/09/2022 RESULT: Pancreas: Normal sonographic appearance in the visualized portions. Portions obscured: tail Liver: Echotexture: Homogeneous Echogenicity: Normal Surface contour: Smooth Lesions: None. Biliary: Mild intrahepatic bile duct dilation visualized. CBD: 7.2 mm in diameter. Gallbladder: Surgically absent. -Other: Negative sonographic Monaco's sign. Kidneys: Within normal limits, measuring 11.4 cm in length of the right kidney and 10.8 cm in length of the left kidney. Spleen: No splenomegaly or mass lesion identified. The spleen measures 9.8 x 8.6 x 8.1 cm. IMPRESSION: Mild intrahepatic bile dilation in the setting of cholecystectomy. Esthetician: FELICIA Transcribe Date/Time: Nov 20 2022 11:37A Dictated by : TYLER HERRERA MD This examination was interpreted and the report reviewed and electronically signed by: TYLER HERRERA MD on Nov 20 2022 11:41AM EST [id number] [facility] US ABD SPLEEN -NBon 11-20-19 23 US ABD SPLEEN -NB * * *Final Report* * * DATE OF EXAM: Nov 20 2022 10:07AM MARIA LUZ 1232 - US ABD SPLEEN -NB / PROCEDURE REASON: Abn liver function tests (LFTs) * * * * Physician Interpretation * * * * EXAM TITLE: US ABD RIGHT UPPER QUADRANT, US ABD SPLEEN -NB HISTORY: Abnormal liver function test. TECHNIQUE: Sonography of the right upper quadrant and spleen was performed. Images were obtained and stored in a permanent archive. MQ: URUQ_1 COMPARISON: CT of abdomen pelvis on 08/09/2022 RESULT: Pancreas: Normal sonographic appearance in the visualized portions. Portions obscured: tail Liver: Echotexture: Homogeneous Echogenicity: Normal Surface contour: Smooth Lesions: None. Biliary: Mild intrahepatic bile duct dilation visualized. CBD: 7.2 mm in diameter. Gallbladder: Surgically absent. -Other: Negative sonographic Monaco's sign. Kidneys: Within normal limits, measuring 11.4 cm in length of the right kidney and 10.8 cm in length of the left kidney. Spleen: No splenomegaly or mass lesion identified. The spleen measures 9.8 x 8.6 x 8.1 cm. IMPRESSION: Mild intrahepatic bile dilation in the setting of cholecystectomy. Esthetician: FELICIA Transcribe Date/Time: Nov 20 2022 11:37A Dictated by : TYLER HERRERA MD This examination was interpreted and the report reviewed and electronically signed by: TYLER HERRERA MD on Nov 20 2022 11:41AM EST [id number] [facility] Basic metabolic 2000 panelon 11-19-2022 Anion gap [Moles/Vol] 8 mmol/L Low 9-18 [facility] Comment on above: Order Comment: Speci men Type: BLOOD SPECIMENOrdering Facility: [facility] Address: [address] [place] [phone] Performed By: #### 2 4321-2, 10033-1, 97375-5, 2276-4 ####COVELO LABORATORYCLIA [id number] [place] [address] [place] Calcium [Mass/Vol] 8.1 mg/dL Low 8.5-10.2 [facility] Comment on above: Order Comment: Speci men Type: BLOOD SPECIMENOrdering Facility: [facility] Address: [address] [place] [address] Performed By: #### 2 4321-2, 40712-9, 07370-0, 2275-4 ####SALGUERO LABORATORYCLIA [id number] [place] [address] [place] Chloride [Moles/Vol] 106 mmol/L High 97-105 [facility] Comment on above: Order Comment: Speci men Type: BLOOD SPECIMENOrdering Facility: [facility] Address: [address] [place] [address] Performed By: #### 2 4321-2, 26862-5, 63183-9, 2275-4 ####COVELO LABORATORYCLIA [id number] [address] [place] CO2 [Moles/Vol] 26 mmol/L Normal 22-30 [facility] Comment on above: Order Comment: Speci men Type: BLOOD SPECIMENOrdering Facility: [facility] Address: [address] [place] [address] Performed By: #### 2 4321-2, 16817-1, 05173-6, 2275-4 ####SALGUERO LABORATORYCLIA [id number] [place] [address] [place] Creatinine [Mass/Vol] 0.51 mg/dL Low 0.58-0.96 [facility] Comment on above: Order Comment: Speci men Type: BLOOD SPECIMENOrdering Facility: [facility] Address: [address] [place] [address] Performed By: #### 2 4321-2, 83003-3, 29515-8, 2275-4 ####COVELO LABORATORYCLIA [id number] [address] [place] ESTIMATED GLOMERULAR FILTRATION RATE 130 mL/min/1.73m??? Normal >=60 [facility] Comment on above: Order Comment: Speci men Type: BLOOD SPECIMENOrdering Facility: [facility] Address: [address] [place] [address] Result Comment: Columba mated Glomerular Filtration Rate (eGFR) is calculated using the 2020 CKD-EPI creatinine equation. This equation utilizes serum creatinine, sex, and age as parameters. The creatinine assay has traceable calibration to isotope dilution-mass spectrometry. Refer to KDIGO guidelines for clinical interpretation. In patients with unstable renal function, e.g. those with acute kidney injury, the eGFR may not accurately reflect actual GFR. Performed By: #### 2 4321-2, 17330-6, 73298-5, 2276-01 ####COVELO LABORATORYCLIA [id number] [place] [address] [place] Glucose [Mass/Vol] 106 mg/dL High 74-99 [facility] Comment on above: Order Comment: Shaquille hernandez Type: BLOOD SPECIMENOrdering Facility: [facility] Address: [address] [place], [place] [id number] Result Comment: The [place] Diabetes Association (ADA) provides guidance for cutoff [...] Standards of Medical Care in Diabetes 2016, [place] Diabetes Association. Diabetes Care. 2016.39(Suppl 1). Performed By: #### 2 4321-2, 93482-8, 19618-8, 4 ####COVELO LABORATORYCLIA [id number] [place] [address] [place] Potassium [Moles/Vol] 4.1 mmol/L Normal 3.7-5.1 [facility] Comment on above: Order Comment: Shaquille hernandez Type: BLOOD SPECIMENOrdering Facility: [facility] Address: [address] [id number] Performed By: #### 2 4321-2, 51834-0, 74994-6, 6-4 ####SALGUERO LABORATORYCLIA [id number] [place] [address] [facility] Sodium [Moles/Vol] 140 mmol/L Normal 136-144 [facility] Comment on above: Order Comment: Speci men Type: BLOOD SPECIMENOrdering Facility: [facility] Address: [address] [place], [place] [phone] Performed By: #### 2 4321-2, 56529-3, 49553-9, 2275-4 ####SALGUERO LABORATORYCLIA [id number] [place] [address] [facility] Urea nitrogen [Mass/Vol] 7 mg/dL Normal 7-21 [facility] Comment on above: Order Comment: Speci men Type: BLOOD SPECIMENOrdering Facility: [facility] Address: [address] [place], [place] [phone] Performed By: #### 2 4321-2, 52341-7, 44644-8, 2275-4 ####SALGUERO LABORATORYCLIA [id number] [place] [id number] [facility] CASE MGT INIT ASSESon 2022 CASE MGT INIT ASSES HNO ID: [id number] Author: EASTON Dodson Service: ? Author Type: Chart Changer Type: Care Mgt Initial Assessment Filed: 11/19/2022 10:25 AM Note Text: CARE MANAGEMENT: ASSESSMENT AND DISCHARGE PLAN SERVICE DATE: November 19, 2022 SERVICE TIME: 9:50 am PRIMARY CARE PHYSICIAN: Isaias Bradley MD Primary Contact: Extended Emergency Contact Information Primary Emergency Contact: Rex Szymanski Address: [address] [place], [place] [id number] [place] [address] [facility] Mobile Relation: Spouse Secondary Emergency Contact: Ingrid Alfonso Mobile Relation: Mother ADMISSION STATUS: Observation Insurance Provider: BERTHA SANTORO MEDICAID NEEDS PRIOR TO DISCHARGE Needs Prior to Discharge: OT/PT Evaluation, To Be Determined POTENTIAL TRANSITION PLANS Home;Home Care;Custodial Facility/Intermediate Care Facility Based on clinical judgement, Care Management will address the following needs: Medical;Social;Function al Patient's perception of need for this admission: Not eating for 11 days, weight loss, weakness ADVANCE DIRECTIVES Current Advance Directive: Health Care Power of Machine Rebuilder;Living Will In Chart: Yes Up To Date and Valid: Yes MS/BEHAVIOR Baseline Mental Status Prior to this Illness what was the patient's Baseline Mental Status?: Alert AND Oriented Prior to this illness, has anyone described the patient having any of the following behaviors?: Not Applicable Relationship of the informant to the patient:: Self READMISSION Last Discharge Date: 08/19/22 Is this Within the Past 30 days? 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 Bradley Last Known Visit: Yesterday. Per pt, PCP sent to the hospital Does the patient have transportation upon discharge?: Yes Use of any community resources?: No Does the patient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 #### L ZL6673, 17485-9, 46812-4, 3040-3, 3016-3 ####SALGUERO LABORATORYCLIA [id number] [address] [facility] Creatinine [Mass/Vol] 0.68 mg/dL Normal 0.58-0.96 [facility] Comment on above: Order Comment: Shaquille hernandez Type: BLOOD SPECIMENOrdering Facility: [facility] Address: [address] [place] [address] Performed By: #### L WK8615, 19761-0, 67031-4, 3040-3, 3016-3 ####COVELO LABORATORYCLIA [id number] [address] ESTIMATED GLOMERULAR FILTRATION RATE 121 mL/min/1.73m??? Normal >=60 [facility] Comment on above: Order Comment: Shaquille hernandez Type: BLOOD SPECIMENOrdering Facility: [facility] Address: [address] [place] [address] Result Comment: Columba mated Glomerular Filtration Rate (eGFR) is calculated using the 2020 CKD-EPI creatinine equation. This equation utilizes serum creatinine, sex, and age as parameters. The creatinine assay has traceable calibration to isotope dilution-mass spectrometry. Refer to KDIGO guidelines for clinical interpretation. In patients with unstable renal function, e.g. those with acute kidney injury, the eGFR may not accurately reflect actual GFR. Performed By: #### L QA0792, 74033-9, 60775-1, 3040-3, 3016-3 ####COVELO LABORATORYCLIA [id number] [address] [place] Glucose [Mass/Vol] 97 mg/dL Normal 74-99 [facility] Comment on above: Order Comment: Shaquille hernandez Type: BLOOD SPECIMENOrdering Facility: [facility] Address: [address] [place] [address] Result Comment: The [place] Diabetes Association (ADA) provides guidance for cutoff [...] Standards of Medical Care in Diabetes 2016, [place] Diabetes Association. Diabetes Care. 2016.39(Suppl 1). Performed By: #### L [id number], 90369-8, 48137-2, 3040-3, 3016-3 ####SALGUERO LABORATORYCLIA [id number] [place] [address] [place] Potassium [Moles/Vol] 4.3 mmol/L Normal 3.7-5.1 [facility] Comment on above: Order Comment: Speci men Type: BLOOD SPECIMENOrdering Facility: [facility] Address: [address] [place] [address] Performed By: #### L SD1705, 43283-7, 49774-9, 3040-3, 3016-3 ####SALGUERO LABORATORYCLIA [id number] [place] [address] [place] Protein [Mass/Vol] 7.0 g/dL Normal 6.3-8.0 [facility] Comment on above: Order Comment: Speci men Type: BLOOD SPECIMENOrdering Facility: [facility] Address: [address] [place] [address] Performed By: #### L SK4554, 70369-6, 45800-7, 3040-3, 3016-3 ####SALGUERO LABORATORYCLIA [id number] [place] [address] [place] Sodium [Moles/Vol] 140 mmol/L Normal 136-144 [facility] Comment on above: Order Comment: Speci men Type: BLOOD SPECIMENOrdering Facility: [facility] Address: [address] [place] [address] Performed By: #### L WM0481, 98830-3, 25771-2, 3040-3, 3016-3 ####SALGUERO LABORATORYCLIA [id number] [place] [address] [place] Urea nitrogen [Mass/Vol] 9 mg/dL Normal 7-21 [facility] Comment on above: Order Comment: Speci men Type: BLOOD SPECIMENOrdering Facility: [facility] Address: [place] [address] Performed By: #### L CX9804, 10139-7, 55040-9, 3040-3, 3016-3 ####SALGUERO LABORATORYCLIA [id number] [place], [place] [address] [place] [address] [place] Cortis SerPl-mCncon 11-18-19 23 Cortisol [Mass/Vol] 3.9 ug/dL Low 4.8-19.5 [facility] Comment on above: Order Comment: Speci men Type: BLOOD SPECIMENOrdering Facility: [facility] Address: [address] [id number] Result Comment: Prov ided reference range is from 6-10 AM sample collection time. Cortisol Reference Range: 6-10 AM = 4.8-19.5 ug/dL, 4-8 PM = 2.5-11.9 ug/dL Performed By: #### 2 143-6 ####[facility] LABCLIA [id number] [place] [id number] [place] ECG COMPLETEon 11-18-2022 ECG COMPLETE Ventricular Rate : 8 8 BPM Atrial Rate : 88 BPM P-R Interval : 180 ms QRS Duration : 104 ms Q-T Interval : 386 ms QTC Calculation(Bazett) : 467 ms Calculated P [place] : 47 degrees Calculated R [place] : 29 degrees Calculated T [place] : 12 degrees NORMAL SINUS RHYTHM NORMAL ECG no stemi Confirmed by WILBUR WREN MD ([id number]), editorial director Karol Harvey ([id number]) on 11/19/2022 4:08:40 PM NAME : SONIA SZYMANSKI PID : [id number] : 1995 Gender : Female Race : ORD : [id number] Procedure Date : Nov 18 2022 19:42:40 Edit Date : Nov 19 2022 16:08:41 Diagnosis: NORMAL SINUS RHYTHM NORMAL ECG no stemi Confirmed by WILBUR WREN MD ([id number]), editorial director Karol Harvey ([id number]) on 11/19/2022 4:08:40 PM Test Reason : Chest Pain Location : 1 : ER ED Overread By : WILBUR WREN MD Edited By : Karol Harvey Referred By : , Acquired by : ISABELLE, [facility] ED NOTEon 11-18-2022 ED NOTE HNO ID: [id number] Author: Deondre Flynn Service: ? Author Type: Sales Account Executive and Solutions Market Consultant Type: ED Notes Filed: 11/18/2022 7:45 PM Note Text: [facility] ED NOTE HNO ID: [id number] Author: Ashlee TejadaRn) (Hist) SKIP Delcid Service: ? Author Type: Registered Nurse Type: ED Notes Filed: 11/18/2022 7:12 PM Note Text: Pt presents to ED with c/o generalized weakness, abdominal pain, pelvic pain, "high lactate levels" and states that her doctor told her she needed to "pack bags and go to [facility] to be admitted." Pt states that she is not able to take care of herself at home and she has not been able to eat in 2 weeks. [facility] ED PROV NOTEon 11-18-2022 ED PROV NOTE HNO ID: [id number] Author: Wilbur Wren MD Service: Emergency Medicine Author Type: Physician Type: ED Provider Notes Filed: 11/18/2022 9:25 PM Note Text: ED Provider Note Patient Name: Sonia Szymanski : 1995 SERVICE DATE: 11/18/22 History Patient presents with: Abdominal Pain Nausea AND Vomiting 88-year-old female with past medical history of Graves', Wabasso's disease, seizures, lupus, migraines presents tonight with generalized weakness for the last 2 weeks. She states she has lost 11 pounds. She reports abdominal pain, nausea, vomiting. She states has been seen at multiple emergency departments closer to home in [facility] and she keeps having discharge. She reports she saw her primary care doctor today who was concerned about her continuing elevated lactate levels and dehydration and advised her to come to [facility]. History provided by: Patient interpreter and translator used: No PAST MEDICAL HISTORY Diagnosis Date Anxiety Arthritis Asthma Depression Hyperthyroidism Hypoglycemia Migraines PONV (postoperative nausea and vomiting) Seizures (HCC) last in 2009 d/t stress [...] Social History Tobacco Use Smoking status: Former Packs/day: 0.50 Years: 8.00 Pack years: 4.00 Types: Cigarettes Quit date: 10/17/2015 Years since quittin.0 Smokeless tobacco: Never Tobacco comments: quit on 10/17/15 Vaping Use Vaping Use: Never used Substance and Sexual Activity Alcohol use: Not Currently Comment: socially Drug use: Not Currently Comment: CBD products Sexual activity: Yes Partners: Male ALLERGIES Allergen Reactions Prednisone Anaphylaxis Had at the same time as Z-trinidad - unsure which caused the anaphylaxis Hkd-Mmlakczwahyvi-G* Anaphylaxis Excedrin [Acetamino* Swelling Mouth, can take tylenol Latex Rash, Hives at site Neosporin [Neomycin* Hives Voltaren [Diclofena* Other: See Comments Nausea Zithromax [Azithrom* Anaphylaxis Hospitalized on 07/03/14 for this Review of Systems Constitutional: Positive for appetite change and fatigue. Negative for chills and fever. HENT: Negative for congestion and sore throat. Eyes: Negative. Respiratory: Positive for shortness of breath. Negative for cough. Cardiovascular: Positive for chest pain and palpitations. Gastrointestinal: Positive for abdominal pain, diarrhea, nausea and vomiting. Endocrine: Negative. Genitourinary: Positive for dysuria and pelvic pain. Musculoskeletal: Negative for arthralgias and myalgias. Skin: Negative for rash and wound. Allergic/Immunologic: Negative. Neurological: Positive for dizziness, syncope and weakness. Hematological: Does not bruise/bleed easily. Psychiatric/Behavioral: Negative. Physical Exam Vitals [11/18/22 1907] BP Pulse Temp Temp src Resp SpO2 Weight Height 130/83 (!) 91 36.8 ?C (98.3 ?F) Oral 16 98 % 74.4 kg (164 lb) -- Physical Exam Vitals and nursing note reviewed. Constitutional: Appearance: Normal appearance. She is ill-appearing. HENT: Head: Normocephalic and atraumatic. Cardiovascular: Rate and Rhythm: Normal rate and regular rhythm. Pulses: Normal pulses. Pulmonary: Effort: Pulmonary effort is normal. Breath sounds: Normal breath sounds. No wheezing, rhonchi or rales. Abdominal: General: Bowel sounds are normal. There is distension (mild). Palpations: Abdomen is soft. Tenderness: There is generalized abdominal tenderness (greater in RUQ and suprapubic). Hernia: No hernia is present. Skin: General: Skin is warm. Capillary Refill: Capillary refill takes less than 2 seconds. Neurological: Mental Status: She is alert and oriented to person, place, and time. Psychiatric: Mood and Affect: Mood normal. Behavior: Behavior normal. Behavior is cooperative. Diagnostic Testing ED Labs Ordered and Reviewed CBC + DIFF - (more content not included)... Normal [facility] Gas and Carbon monoxide pane l (BldV)on 11-18-2022 Base excess Calc (BldV) [Moles/Vol] 0 mmol/L Normal 0-2 [facility] Comment on above: Order Comment: Speci men Type: VENOUS BLOOD SPECIMENOrdering Facility: [facility] Address: [address] [id number] Performed By: #### 2 4344-4 ####JOSE M RESPIRATORYCLIA [id number] [facility]AT[facility] [id number] [place] [phone] Carboxyhemoglobin (BldV) [Mass fraction] 1.0 % Normal 0.0-2.0 [facility] Comment on above: Order Comment: Speci men Type: VENOUS BLOOD SPECIMENOrdering Facility: [facility] Address: [address] [place] [address] Result Comment: Carb oxyhemoglobin Reference Range for Smokers: 2.0-8.0% Performed By: #### 2 4344-4 ####JOSE M RESPIRATORYCLIA [id number] [facility] [id number] [place] [address] CO2 (BldV) [Partial pressure] 46 mm[Hg] Normal 42-55 [facility] Comment on above: Order Comment: Speci men Type: VENOUS BLOOD SPECIMENOrdering Facility: [facility] Address: [address] [address] Performed By: #### 2 4344-4 ####[facility]ATORYBARRE [facility] [id number] [facility] RESPIRATORY [id number] [address] CO2 adjusted to patient's actual temperature (BldV) [Partial pressure] Normal [facility] Comment on above: Order Comment: Speci men Type: VENOUS BLOOD SPECIMENOrdering Facility: [facility] Address: [address] [address] Performed By: #### 2 4344-4 ####[facility]ATORYBAR[facility] [id number] [facility]OSP[facility] RESPIRATORY [id number] [place] [address] HCO3 (Bld) [Moles/Vol] 25 mmol/L Normal 24-28 [facility] Comment on above: Order Comment: Speci men Type: VENOUS BLOOD SPECIMENOrdering Facility: [facility] Address: [address] [place] [address] Performed By: #### 2 4344-4 ####[facility] [id number] [facility] RESPIRATORY [id number] [place] [address] Hemoglobin (Bld) [Mass/Vol] 10.0 g/dL Low 11.5-15.5 [facility] Comment on above: Order Comment: Speci men Type: VENOUS BLOOD SPECIMENOrdering Facility: [facility] Address: [address] [address] Performed By: #### 2 4344-4 ####[facility] [id number] [facility]OS[facility] RESPIRATORY [id number] [address] Lactate [Moles/Vol] 2.0 mmol/L Normal 0.5-2.2 [facility] Comment on above: Order Comment: Speci men Type: VENOUS BLOOD SPECIMENOrdering Facility: [facility] Address: [address] [address] Performed By: #### 2 4344-4 ####SAL[facility] RESPIRATORYCLIA [id number] [facility] RESPIRATORY [id number] [address] Methemoglobin (Bld) [Mass fraction] 1.0 % Normal 0.0-1.5 [facility] Comment on above: Order Comment: Speci men Type: VENOUS BLOOD SPECIMENOrdering Facility: [facility] Address: [address] [address] Performed By: #### 2 4344-4 ####COVELO RESPIRATORYCLIA [id number] [facility] RESPIRATORY [id number] [place] [address] O2 THERAPY RA=Room Air [facility] Comment on above: Order Comment: Speci men Type: VENOUS BLOOD SPECIMENOrdering Facility: [facility] Address: [address] [address] Performed By: #### 2 4344-4 ####C[facility] RESPIRATORYIA [id number] [facility] RESPIRATORY [id number] [address] Oxygen (BldV) [Partial pressure] 34 mm[Hg] Low 35-45 [facility] Comment on above: Order Comment: Speci men Type: VENOUS BLOOD SPECIMENOrdering Facility: [facility] Address: [address] [address] Performed By: #### 2 4344-4 ####COV[facility] RESPIRATORYCLIA [id number] [facility] RESPIRATORY [id number] [address] Oxygen adjusted to patient's actual temperature (BldV) [Partial pressure] [facility] Comment on above: Order Comment: Speci men Type: VENOUS BLOOD SPECIMENOrdering Facility: [facility] Address: [address] Performed By: #### 2 4344-4 ####SALGUERO RESPIRATORYCLIA [id number] [facility] RESPIRATORY [id number] [place] [address] Oxyhemoglobin (BldV) [Mass fraction] 61 % Normal 60-85 [facility] Comment on above: Order Comment: Speci men Type: VENOUS BLOOD SPECIMENOrdering Facility: [facility] Address: [address] [address] Performed By: #### 2 4344-4 ####[facility] RESPIRATORYCLIA [id number] [facility] RESPIRATORY [id number] [address] pH (BldV) 7.36 [pH] Normal 7.32-7.42 [facility] Comment on above: Order Comment: Speci men Type: VENOUS BLOOD SPECIMENOrdering Facility: [facility] Address: [address] [place] [address] Performed By: #### 2 4344-4 ####COVELO RESPIRATORYIA [id number] [facility]OS[facility] RESPIRATORY [id number] [place], [place] [address] pH adjusted to patient's actual temperature (BldV) Normal [facility] Comment on above: Order Comment: Speci men Type: VENOUS BLOOD SPECIMENOrdering Facility: [facility] Address: [address] [place] [address] Performed By: #### 2 4344-4 ####COVELO RESPIRATORYIA [id number] [facility]OSP[facility] RESPIRATORY [id number] [address] [address] Potassium [Moles/Vol] 3.7 mmol/L Normal 3.5-5.0 [facility] Comment on above: Order Comment: Speci men Type: VENOUS BLOOD SPECIMENOrdering Facility: [facility] Address: [address] [address] Performed By: #### 2 4344-4 ####COVELO RESPIRATORYIA [id number] [facility]OSP[facility] RESPIRATORY [id number] [place] [address] HCG Preg Ur Qlon 11-18-2022 HCG ( test) Ql (U) Negative Normal Negative [facility] Comment on above: Order Comment: Speci men Type: URINE SPECIMENOrdering Facility: [facility] Address: [address] [place] [address] Result Comment: This test is intended to aid in the early detection of . Very dilute urine samples, as indicated by a low specific gravity, may not contain employee representative levels of hCG. This test detects intact hCG only. This test does not reliably detect hCG degradation products, including free-beta subunit and beta-core fragment. Therefore, this test may show reduced reactivity in urine after 8 weeks gestation. A number of conditions other than , including trophoblastic disease and certain non-trophoblastic neoplasms cause elevated levels of hCG. As with any assay employing mouse antibodies, the possibility exists for interference by human anti-mouse antibodies (HAMA) in the specimen. The test provides a presumptive diagnosis for . Performed By: #### 2 106-3 ####SALGUERO LABORATORYCLIA [id number] [address] [id number] [place] HIGH SENSITIVITY TROPONIN T (INITIAL)on 11-18-2022 HIGH SENSITIVITY MARV <6 Normal <12 [facility] Comment on above: Order Comment: Shaquille hernandez Type: BLOOD SPECIMENOrdering Facility: [facility] Address: [address] [place] [address] Result Comment: When assessing risk for acute coronary syndromes: In patients undergoing blood draw greater than or equal to 2 hours from symptom onset, with history of very low to moderate risk and non-ischemic ECG, an initial hs-Troponin T less than 12 ng/L AND a 1 hour delta hs-Troponin T less than 3 ng/L should be considered very low risk for 30 day MACE. Performed By: #### L [id number], 91597-3, 64817-7, 3040-3, 3016-3 ####SALGUERO LABORATORYCLIA [id number] [address] [id number] [place] HIGH SENSITIVITY TROPONIN T (SECOND)on 11-18-2022 HIGH SENSITIVITY MARV <6 Normal <12 [facility] Comment on above: Order Comment: Shaquille hernandez Type: BLOOD SPECIMENOrdering Facility: [facility] Address: [address] [place] [address] Result Comment: When assessing risk for acute coronary syndromes: In patients undergoing blood draw greater than or equal to 2 hours from symptom onset, with history of very low to moderate risk and non-ischemic ECG, an initial hs-Troponin T less than 12 ng/L AND a 1 hour delta hs-Troponin T less than 3 ng/L should be considered very low risk for 30 day MACE. Performed By: #### L [id number] ####JOSE M LABORATORYCLIA [id number] [place] [address] [place] HISTORY PHYSICALon HISTORY PHYSICAL HNO ID: [id number] Author: Jono Johnson MD Service: Hospital Medicine Author Type: Physician Type: HANDP Filed: 11/18/2022 9:51 PM Note Text: HISTORY AND PHYSICAL EXAMINATION SERVICE DATE: 11/18/2022 SERVICE TIME: 9:40 PM PRIMARY CARE PHYSICIAN: Isaias Bradley MD Chief Concern: nausea vomiting abd pain weakness HPI: 27 yo woman with hx of migraines, [place]'s, Grave's s/p surgery, Seizure disorder, depression, DM2, presenting with several weeks of non-resolving intermittent nausea vomiting poor oral intake weight loss fatigue and lightheadedness with multiple falls. She is using a walker at home. No hx of neurologic disease. Multiple ED visits. Post-cholecystectomy and appendectomy as well as total hysterectomy/oophorecto my for endometriosis. Had EGD showing schatzchi ring, PUD, and hiatal hernia (per her report) but no colonoscopy. Hasn't had gastric emptying study. Has upcoming colonoscopy this coming week. Her pain is central abd. Also reports frequent non-bloody stools without fevers/chills. Went to [facility] ED 11/[address] scan showing moderate stool but no acute abnormality Had CT 11/03 at [place] without significant abnormality PAST MEDICAL HISTORY Diagnosis Date Anxiety Arthritis Asthma Depression Hyperthyroidism Hypoglycemia Migraines PONV (postoperative nausea and vomiting) Seizures (HCC) last in 2009 d/t stress [...] Social History Tobacco Use Smoking status: Former Packs/day: 0.50 Years: 8.00 Pack years: 4.00 Types: Cigarettes Quit date: 10/17/2015 Years since quittin.0 Smokeless tobacco: Never Tobacco comments: quit on 10/17/15 Vaping Use Vaping Use: Never used Substance Use Topics Alcohol use: Not Currently Comment: socially Drug use: Not Currently Comment: CBD products (Not in a hospital admission) ALLERGIES Allergen Reactions Prednisone Anaphylaxis Had at the same time as Z-trinidad - unsure which caused the anaphylaxis Gwu-Mrogdfuvepnil-J* Anaphylaxis Excedrin [Acetamino* Swelling Mouth, can take tylenol Latex Rash, Hives at site Neosporin [Neomycin* Hives Voltaren [Diclofena* Other: See Comments Nausea Zithromax [Azithrom* Anaphylaxis Hospitalized on 07/03/14 for this REVIEW OF SYSTEMS: Review of Systems Respiratory: Negative for shortness of breath. Cardiovascular: Negative for chest pain. Gastrointestinal: Positive for abdominal pain, nausea and vomiting. EXAM: BP 130/83 Pulse 89 Temp 36.8 ?C (98.3 ?F) (Oral) Resp 16 Wt 74.4 kg (164 lb) LMP 11/27/2019 SpO2 97% BMI 27.29 kg/m? Body mass index is 27.29 kg/m?. Physical Exam Constitutional: General: She is not in acute distress. Appearance: She is not diaphoretic. HENT: Head: Normocephalic. Cardiovascular: Rate and Rhythm: Normal rate and regular rhythm. Pulmonary: Effort: Pulmonary effort is normal. Breath sounds: Normal breath sounds. Abdominal: General: There is no distension. Palpations: Abdomen is soft. Tenderness: There is no abdominal tenderness. Musculoskeletal: General: No swelling. Skin: General: Skin is warm. Neurological: Mental Status: She is alert and oriented to person, place, and time. Psychiatric: Mood and Affect: Mood normal. DATA: Cat1: reviewed CBC BMP and records from [facility] of [facility] - see HPI Cat 2: personally reviewed EKG - I see normal sinus. No abnormal ST-T. Assessment: Ms. Szymanski, your life has been affected by migraines, Slade's, Grave's s/p surgery, Seizure disorder, depression, DM2. You presented to the hospital with nausea vomiting diarrhea abdominal pain weight loss with mild signs of hypovolemia but normal electrolytes indicating that she is not having an slade's crisis. Will give some extra saline and consult GI to discuss inpatient vs outpatient further testing vs supportive care. Problem lis (more content not included)... Normal [facility] Lipase SerPl-cCncon 11-18-19 23 Lipase [Catalytic activity/Vol] 24 U/L Normal 16-61 [facility] Comment on above: Order Comment: Shaquille hernandez Type: BLOOD SPECIMENOrdering Facility: [facility] Address: [address] [place] [address] Performed By: #### L [id number], 46435-8, 37524-3, 3040-3, 3016-3 ####COVELO LABORATORYCLIA [id number] [place] [address] [place] Magnesium SerPl-mCncon 11-18 Magnesium [Mass/Vol] 1.6 mg/dL Low 1.7-2.3 [facility] Comment on above: Order Comment: Shaquille hernandez Type: BLOOD SPECIMENOrdering Facility: [facility] Address: [address] [place] [address] Performed By: #### L [id number], 78260-5, 81966-0, 3040-3, 3016-3 ####COVELO LABORATORYCLIA [id number] [place] [address] [place] TSH SerPl-aCncon 11-18-2022 TSH Qn 0.034 m[IU]/L Low 0.270-4.200 [facility] Comment on above: Order Comment: Shaquille hernandez Type: BLOOD SPECIMENOrdering Facility: [facility] Address: [address] [place] [address] Result Comment: If t he patient is , TSH reference range varies by gestational period: First Trimester (weeks 9-12): 0.180-2.990 mIU/L Second Trimester: 0.110-3.980 mIU/L Third Trimester: 0.480-4.710 mIU/L Fercho Potter et al. A Practical Approach for the Verifications and Determination of Site- and Trimester-Specific Reference Intervals for Thyroid Function tests in . Thyroid, 2019:29:3:412-420. Robbin E, et al. 2017 Guidelines of the [place] Thyroid Association for the Diagnosis and Management of Thyroid Disease during and the . Thyroid, 2017:27:3:315-389. Performed By: #### L [id number], 72080-9, 47621-1, 3040-3, 3016-3 ####SAL[facility]ERO LABORATORYCLIA [id number] [address] Urinalysis complete panel (U )on 11-18-2022 Bacteria LM.HPF (Urine sed) [#/Area] Few Abnormal None Seen [facility] Comment on above: Order Comment: Speci men Type: URINE SPECIMENOrdering Facility: [facility] Address: [address] [place] [address] Performed By: #### 2 4356-8 ####SALGUERO LABORATORYCLIA [id number] [address] Bilirubin Ql (U) Negative Normal Negative [facility] Comment on above: Order Comment: Speci men Type: URINE SPECIMENOrdering Facility: [facility] Address: [address] [place] [address] Performed By: #### 2 4356-8 ####SALGUERO LABORATORYCLIA [id number] [address] Clarity (Unsp spec) Clear Normal Clear [facility] Comment on above: Order Comment: Speci men Type: URINE SPECIMENOrdering Facility: [facility] Address: [address] [address] Performed By: #### 2 4356-8 ####SALGUERO LABORATORYCLIA [id number] [address] Color (U) Yellow Normal Yellow [facility] Comment on above: Order Comment: Speci men Type: URINE SPECIMENOrdering Facility: [facility] Address: [address] [place] [address] Performed By: #### 2 4356-8 ####SALGUERO LABORATORYCLIA [id number] [address] [place] Glucose Test strip (U) [Mass/Vol] Negative Normal Negative [facility] Comment on above: Order Comment: Speci men Type: URINE SPECIMENOrdering Facility: [facility] Address: [address] [address] Performed By: #### 2 4356-8 ####SALGUERO LABORATORYCLIA [id number] [place] [address] [place] Hemoglobin Ql (U) 1+ Abnormal Negative, Trace [facility] Comment on above: Order Comment: Speci men Type: URINE SPECIMENOrdering Facility: [facility] Address: [address] [place] [address] Performed By: #### 2 4356-8 ####SALGUERO LABORATORYCLIA [id number] [place] [address] [place] Ketones Ql (U) Negative Normal Negative [facility] Comment on above: Order Comment: Speci men Type: URINE SPECIMENOrdering Facility: [facility] Address: [address] [place] [address] Performed By: #### 2 4356-8 ####SALGUERO LABORATORYCLIA [id number] [address] Leukocyte esterase Test strip Ql (U) Negative Normal Negative [facility] Comment on above: Order Comment: Speci men Type: URINE SPECIMENOrdering Facility: [facility] Address: [address] [address] Performed By: #### 2 4356-8 ####SALGUERO LABORATORYCLIA [id number] [place] [address] [place] Nitrite Ql (U) Negative Normal Negative [facility] Comment on above: Order Comment: Speci men Type: URINE SPECIMENOrdering Facility: [facility] Address: [address] [place] [address] Performed By: #### 2 4356-8 ####SALGUERO LABORATORYCLIA [id number] [address] [place] pH (U) 6.0 [pH] Normal 5.0-8.0 [facility] Comment on above: Order Comment: Speci men Type: URINE SPECIMENOrdering Facility: [facility] Address: [address] [place] [address] Performed By: #### 2 4356-8 ####SALGUERO LABORATORYCLIA [id number] [address] [place] Protein (U) [Mass/Vol] Negative Normal Negative [facility] Comment on above: Order Comment: Speci men Type: URINE SPECIMENOrdering Facility: [facility] Address: [address] [place] [address] Performed By: #### 2 4356-8 ####COVELO LABORATORYCLIA [id number] [place] [address] [place] RBC LM.HPF (Urine sed) [#/Area] 0-3 /HPF Normal 0-3 /HPF [facility] Comment on above: Order Comment: Speci men Type: URINE SPECIMENOrdering Facility: [facility] Address: [address] [place] [address] Performed By: #### 2 4356-8 ####SALGUERO LABORATORYCLIA [id number] [address] [place] Specific gravity (U) [Rel density] >=1.030 High 1.005-1.030 [facility] Comment on above: Order Comment: Speci men Type: URINE SPECIMENOrdering Facility: [facility] Address: [address] [place] [address] Performed By: #### 2 4356-8 ####SALGUERO LABORATORYCLIA [id number] [address] Urobilinogen Ql (U) 0.2 EU/dL Normal 0.2-1.0 EU/dL [facility] Comment on above: Order Comment: Speci men Type: URINE SPECIMENOrdering Facility: [facility] Address: [address] [place] [address] Performed By: #### 2 4356-8 ####SALGUERO LABORATORYCLIA [id number] [address] WBC LM.HPF (Urine sed) [#/Area] 0-5 /HPF Normal 0-5 /HPF [facility] Comment on above: Order Comment: Speci men Type: URINE SPECIMENOrdering Facility: [facility] Address: [address] [id number] Performed By: #### 2 4356-8 ####SALGUERO LABORATORYCLIA [id number] [address] Absolute lymphocyte countOrd ered By: Dr. Garay on 11-03-2022 Lymphocytes Auto (Unsp spec) [#/Vol] 2.33 10*3/uL 0.83-4.51 [facility] Basophil percentageOrdered B y: Dr. Garay on 11-03-2022 Basophils/100 WBC (Bld) 0.6 % 0-1 [facility] Bilirubin [Mass/Vol] 0.30 mg/dL 0.20-1.00 [facility] Comment on above: For patients on eltr ombopag therapy, use of Dimension [place] TBIL is not recommended. Chloride [Moles/Vol] 110 mmol/L 98-107 [facility] Eosinophils/100 WBC (Bld) 1.1 % 0-5 [facility] Glucose [Mass/Vol] 90 mg/dL 74-106 [facility] Neutrophils (Bld) [#/Vol] 2.2 10*3/uL 2.0-7.7 [facility] Neutrophils/100 WBC (Bld) 41.0 % 47-70 [facility] Potassium [Moles/Vol] 3.6 mmol/L 3.5-5.1 [facility] Protein [Mass/Vol] 6.9 g/dL 6.4-8.2 [facility] Sodium [Moles/Vol] 142 mmol/L 136-145 [facility] WBC (Bld) [#/Vol] 5.4 10*3/uL 4.4-11.0 [facility] Blood erythrocytes count (nu mber/volume)Ordered By: Dr. Garay on 11-03-2022 RBC (Bld) [#/Vol] 4.11 10*6/uL 4.2-5.4 [facility] Blood hemoglobin measurement (mass/volume)Ordered By: Dr. Garay on 11-03-2022 Hemoglobin (Bld) [Mass/Vol] 10.5 g/dL 12.0-15.0 [facility] Blood lymphocytes/100 leukoc ytesOrdered By: Dr. Garay on 11-03-2022 Lymphocytes/100 WBC (Bld) 43.5 % 19-41 [facility] Blood monocytes/100 leukocyt esOrdered By: Dr. Garay on 11-03-2022 Monocytes/100 WBC (Bld) 13.6 % 0-10 [facility] Blood platelet mean volumeOr dered By: Dr. Garay on 11-03-2022 Platelet mean volume (Bld) [Entitic vol] 9.7 fL 6.2-12.0 [facility] Determination of erythrocyte mean corpuscular volume (MCV)Ordered By: Dr. Garay on 11-03-2022 MCV (RBC) [Entitic vol] 81.8 fL 81-99 [facility] Hematocrit Auto (Bld) [Volum e fraction]Ordered By: Dr. Garay on 11-03-2022 Hematocrit (Bld) [Volume fraction] 33.6 % 37-47 [facility] Laboratory - Chemistry and C hemistry - challengeOrdered By: Dr. Garay on 11-03-2022 ALP [Catalytic activity/Vol] 76 U/L 45-117 [facility] ALT [Catalytic activity/Vol] 52 U/L 13-56 [facility] CO2 [Moles/Vol] 27.0 mmol/L 21.0-32.0 [facility] Globulin (S) [Mass/Vol] 3.8 g/dL 2.2-4.2 [facility] Lipase [Catalytic activity/Vol] 100 U/L 73-393 [facility] Urea nitrogen/Creatinine [Mass ratio] 12.9 mg/mg 10-20 [facility] Laboratory - Hematology and Cell countsOrdered By: Dr. Garay on 11-03-2022 Erythrocyte distribution width (RBC) [Entitic vol] 39.3 fL 35.1-43.9 [facility] Erythrocyte distribution width (RBC) [Ratio] 13.1 % 11.6-14.6 [facility] Immature granulocytes/100 WBC (Bld) 0.200 % 0.0-0.9 [facility] Comment on above: IG% - Immature Granu locytes (promyelocytes, myelocytes and metamyelocytes) > 1% indicates that a LEFT SHIFT is Present. MCH (RBC) [Entitic mass] 25.5 pg 27.0-32.0 [facility] Nucleated RBC/100 WBC (Bld) [Ratio] 0 % 0-5 [facility] MCHC Auto (RBC) [Mass/Vol]Or dered By: Dr. Garay on 11-03-2022 MCHC (RBC) [Mass/Vol] 31.3 g/dL 32-36 [facility] No Panel InformationOrdered By: Dr. Garay on 11-03-2022 Estimated Creatinine Clearance Calc 106.71 ml/min [facility] Estimated GFR (MDRD) Amer 127 mL/min >60 [facility] Comment on above: GFR Calc Estimated GFR (MDRD) Non-Af Amer 105 mL/min >60 [facility] Comment on above: Non- GFR Calc Platelets bldOrdered By: Dr. Garay on 11-03-2022 Platelets (Bld) [#/Vol] 267 10*3/uL 150-450 [facility] Serum or plasma albumin evert urement (mass/volume)Ordered By: Dr. Garay on 11-03-2022 Albumin [Mass/Vol] 3.1 g/dL 3.2-5.0 [facility] Serum or plasma albumin/glob ulin mass ratioOrdered By: Dr. Garay on 11-03-2022 Albumin/Globulin [Mass ratio] 0.8 {ratio} 0.9-2.4 [facility] Serum or plasma calcium evert urement (mass/volume)Ordered By: Dr. Garay on 11-03-2022 Calcium [Mass/Vol] 8.5 mg/dL 8.5-10.1 [facility] Serum or plasma creatinine m easurement (mass/volume)Ordered By: Dr. Garay on 11-03-2022 Creatinine [Mass/Vol] 0.70 mg/dL 0.55-1.02 [facility] Comment on above: The validity of the calculated GFR & GFRAA in patients over 70 years has not been determined. Clinical correlation is essential. Serum or plasma urea nitroge n measurement (mass/volume)Ordered By: Dr. Garay on 11-03-2022 Urea nitrogen [Mass/Vol] 9 mg/dL 7-18 [facility] Thin prep Papanicolaou smear with manual screeningOrdered By: Dr. Garay on 11-03-2022 Thin prep Papanicolaou smear with manual screening 12 U/L 15-37 [facility] Thin prep Papanicolaou smear with manual screening 5 5-15 [facility] Absolute lymphocyte countOrd ered By: Francisca Gonzalez on 10-31-2022 Lymphocytes Auto (Unsp spec) [#/Vol] 2.29 10*3/uL 0.83-4.51 [facility] Basophil percentageOrdered B y: Francisca Gonzalez on 10-31-2022 Basophils/100 WBC (Bld) 0.4 % 0-1 [facility] Chloride [Moles/Vol] 105 mmol/L 98-107 [facility] Eosinophils/100 WBC (Bld) 0.9 % 0-5 [facility] Glucose [Mass/Vol] 96 mg/dL 74-106 [facility] Neutrophils (Bld) [#/Vol] 3.4 10*3/uL 2.0-7.7 [facility] Neutrophils/100 WBC (Bld) 51.1 % 47-70 [facility] Potassium [Moles/Vol] 4.2 mmol/L 3.5-5.1 [facility] Sodium [Moles/Vol] 140 mmol/L 136-145 [facility] WBC (Bld) [#/Vol] 6.7 10*3/uL 4.4-11.0 [facility] Blood erythrocytes count (nu mber/volume)Ordered By: Francisca Gonzalez on 10-31-2022 RBC (Bld) [#/Vol] 4.37 10*6/uL 4.2-5.4 [facility] Blood hemoglobin measurement (mass/volume)Ordered By: Francisca Gonzalez on 10-31-2022 Hemoglobin (Bld) [Mass/Vol] 11.5 g/dL 12.0-15.0 [facility] Blood lymphocytes/100 leukoc ytesOrdered By: Francisca Gonzalez on 10-31-2022 Lymphocytes/100 WBC (Bld) 34.2 % 19-41 [facility] Blood monocytes/100 leukocyt esOrdered By: Francisca Gonzalez on 10-31-2022 Monocytes/100 WBC (Bld) 13.3 % 0-10 [facility] Blood platelet mean volumeOr dered By: Francisca Gonzalez on 10-31-2022 Platelet mean volume (Bld) [Entitic vol] 10.0 fL 6.2-12.0 [facility] Determination of erythrocyte mean corpuscular volume (MCV)Ordered By: Francisca Gonzalez on 10-31-2022 MCV (RBC) [Entitic vol] 82.4 fL 81-99 [facility] Hematocrit Auto (Bld) [Volum e fraction]Ordered By: Francisca Gonzalez on 10-31-2022 Hematocrit (Bld) [Volume fraction] 36.0 % 37-47 [facility] Laboratory - Chemistry and C hemistry - challengeOrdered By: Francisca Gonzalez on 10-31-2022 CO2 [Moles/Vol] 27.0 mmol/L 21.0-32.0 [facility] Free T4 [Mass/Vol] 1.22 ng/dL 0.76-1.46 [facility] Urea nitrogen/Creatinine [Mass ratio] 10.8 mg/mg 10-20 [facility] Laboratory - Hematology and Cell countsOrdered By: Francisca Gonzalez on 10-31-2022 Erythrocyte distribution width (RBC) [Entitic vol] 40.1 fL 35.1-43.9 [facility] Erythrocyte distribution width (RBC) [Ratio] 13.4 % 11.6-14.6 [facility] Immature granulocytes/100 WBC (Bld) 0.100 % 0.0-0.9 [facility] Comment on above: IG% - Immature Granu locytes (promyelocytes, myelocytes and metamyelocytes) > 1% indicates that a LEFT SHIFT is Present. MCH (RBC) [Entitic mass] 26.3 pg 27.0-32.0 [facility] Nucleated RBC/100 WBC (Bld) [Ratio] 0 % 0-5 [facility] MCHC Auto (RBC) [Mass/Vol]Or dered By: Francisca Gonzalez on 10-31-2022 MCHC (RBC) [Mass/Vol] 31.9 g/dL 32-36 [facility] No Panel InformationOrdered By: Francisca Gonzalez on 10-31-2022 Estimated Creatinine Clearance Calc 100.94 ml/min [facility] Estimated GFR (MDRD) Amer 118 mL/min >60 [facility] Comment on above: GFR Calc Estimated GFR (MDRD) Non-Af Amer 98 mL/min >60 [facility] Comment on above: Non- GFR Calc Platelets bldOrdered By: Scar Gonzalez on 10-31-2022 Platelets (Bld) [#/Vol] 273 10*3/uL 150-450 [facility] Serum or plasma calcium evert urement (mass/volume)Ordered By: Francisca Gonzalez on 10-31-2022 Calcium [Mass/Vol] 9.2 mg/dL 8.5-10.1 [facility] Serum or plasma cortisol radu surement (mass/volume)Ordered By: Francisca Gonzalez on 10-31-2022 Cortisol [Mass/Vol] 4.80 ug/dL 3.44-22.45 [facility] Comment on above: Adult (AM) 5.27 - 22 .45 ug/dL Adult (PM) 3.44 - 16.76 ug/dLPlease note revised CORTISOL reference range effective 2019. Serum or plasma creatinine m easurement (mass/volume)Ordered By: Francisca Gonzalez on 10-31-2022 Creatinine [Mass/Vol] 0.74 mg/dL 0.55-1.02 [facility] Comment on above: The validity of the calculated GFR & GFRAA in patients over 70 years has not been determined. Clinical correlation is essential. Serum or plasma urea nitroge n measurement (mass/volume)Ordered By: Francisca Gonzalez on 10-31-2022 Urea nitrogen [Mass/Vol] 8 mg/dL 7-18 [facility] Thin prep Papanicolaou smear with manual screeningOrdered By: Francisca Gonzalez on 10-31-2022 Thin prep Papanicolaou smear with manual screening 8 5-15 [facility] Absolute lymphocyte countOrd ered By: Dr. Osei on 10-29-2022 Lymphocytes Auto (Unsp spec) [#/Vol] 2.35 10*3/uL 0.83-4.51 [facility] Basophil percentageOrdered B y: Dr. Osei on 10-29-2022 Basophils/100 WBC (Bld) 0.5 % 0-1 [facility] Bilirubin [Mass/Vol] 0.50 mg/dL 0.20-1.00 [facility] Comment on above: For patients on eltr ombopag therapy, use of Dimension [place] TBIL is not recommended. Chloride [Moles/Vol] 105 mmol/L 98-107 [facility] Eosinophils/100 WBC (Bld) 1.0 % 0-5 [facility] Glucose [Mass/Vol] 100 mg/dL 74-106 [facility] Comment on above: Fasting Glucose resu lt from 100 to 125 mg/dL suggests IMPAIRED HOMEOSTASIS per A.D.A. criteria. Neutrophils (Bld) [#/Vol] 2.7 10*3/uL 2.0-7.7 [facility] Neutrophils/100 WBC (Bld) 45.8 % 47-70 [facility] Potassium [Moles/Vol] 3.2 mmol/L 3.5-5.1 [facility] Protein [Mass/Vol] 7.9 g/dL 6.4-8.2 [facility] Sodium [Moles/Vol] 140 mmol/L 136-145 [facility] WBC (Bld) [#/Vol] 5.9 10*3/uL 4.4-11.0 [facility] Bilirubin Test strip Ql (U)O rdered By: Dr. Osei on 10-29-2022 Bilirubin Ql (U) Negative Negative [facility] Blood erythrocytes count (nu mber/volume)Ordered By: Dr. Osei on 10-29-2022 RBC (Bld) [#/Vol] 4.61 10*6/uL 4.2-5.4 [facility] Blood hemoglobin measurement (mass/volume)Ordered By: Dr. Osei on 10-29-2022 Hemoglobin (Bld) [Mass/Vol] 11.6 g/dL 12.0-15.0 [facility] Blood lymphocytes/100 leukoc ytesOrdered By: Dr. Osei on 10-29-2022 Lymphocytes/100 WBC (Bld) 39.7 % 19-41 [facility] Blood monocytes/100 leukocyt esOrdered By: Dr. Osei on 10-29-2022 Monocytes/100 WBC (Bld) 12.7 % 0-10 [facility] Blood platelet mean volumeOr dered By: Dr. Osei on 10-29-2022 Platelet mean volume (Bld) [Entitic vol] 10.0 fL 6.2-12.0 [facility] Determination of erythrocyte mean corpuscular volume (MCV)Ordered By: Dr. Osei on 10-29-2022 MCV (RBC) [Entitic vol] 81.1 fL 81-99 [facility] Hematocrit Auto (Bld) [Volum e fraction]Ordered By: Dr. Osei on 10-29-2022 Hematocrit (Bld) [Volume fraction] 37.4 % 37-47 [facility] INR in Blood by Coagulation assayOrdered By: Dr. Osei on 10-29-2022 INR Coag (Bld) [Relative time] 1.0 {INR} [facility] Influenza virus A and B and SARS-CoV-2 (COVID-19) Ag panel - Upper respiratory specimOrdered By: Dr. Osei on 10-29-2022 SARS-CoV-2 (COVID-19) RNA PINKY+probe Ql (Resp) [facility] Ketones Test strip Ql (U)Ord ered By: Dr. Osei on 10-29-2022 Ketones Ql (U) Negative Negative [facility] Laboratory - Chemistry and C hemistry - challengeOrdered By: Dr. Osei on 10-29-2022 HCG ( test) Ql (U) Negative [facility] Comment on above: Very dilute urine sp ecimens, as indicated by a low specificgravity, may not contain employee representative levels of hCG. If is still suspected, a first morning urinespecimen should be collected 48 hours later and tested. ALP [Catalytic activity/Vol] 57 U/L 45-117 [facility] ALT [Catalytic activity/Vol] 19 U/L 13-56 [facility] CO2 [Moles/Vol] 23.0 mmol/L 21.0-32.0 [facility] Globulin (S) [Mass/Vol] 4.4 g/dL 2.2-4.2 [facility] Urea nitrogen/Creatinine [Mass ratio] 11.2 mg/mg 10-20 [facility] Laboratory - CoagulationOrde red By: Dr. Osei on 10-29-2022 PT Coag (PPP) [Time] 12.9 s 11.7-14.9 [facility] Laboratory - Hematology and Cell countsOrdered By: Dr. Osei on 10-29-2022 Erythrocyte distribution width (RBC) [Entitic vol] 39.4 fL 35.1-43.9 [facility] Erythrocyte distribution width (RBC) [Ratio] 13.4 % 11.6-14.6 [facility] Immature granulocytes/100 WBC (Bld) 0.300 % 0.0-0.9 [facility] Comment on above: IG% - Immature Granu locytes (promyelocytes, myelocytes and metamyelocytes) > 1% indicates that a LEFT SHIFT is Present. MCH (RBC) [Entitic mass] 25.2 pg 27.0-32.0 [facility] Nucleated RBC/100 WBC (Bld) [Ratio] 0 % 0-5 [facility] MCHC Auto (RBC) [Mass/Vol]Or dered By: Dr. Osei on 10-29-2022 MCHC (RBC) [Mass/Vol] 31.0 g/dL 32-36 [facility] Nitrite Test strip Ql (U)Ord ered By: Dr. Osei on 10-29-2022 Nitrite Ql (U) Negative Negative [facility] No Panel InformationOrdered By: Dr. Osei on 10-29-2022 Estimated Creatinine Clearance Calc 83.93 ml/min [facility] Estimated GFR (MDRD) Amer 96 mL/min >60 [facility] Comment on above: GFR Calc Estimated GFR (MDRD) Non-Af Amer 79 mL/min >60 [facility] Comment on above: Non- GFR Calc Thyroid Stimulating Hormone (TSH) 0.02 uIU/mL 0.358-3.74 [facility] Troponin I High Sensitivity 3 pg/mL 3.0-54.0 [facility] Comment on above: Please Note: New Beau t Units and Gender Specific Reference Ranges. For more information see Policy Stat Procedure [place] High Sensitivity Troponin (TNIH) and attachments. Platelets bldOrdered By: Dr. Osei on 10-29-2022 Platelets (Bld) [#/Vol] 293 10*3/uL 150-450 [facility] Protein Test strip Ql (U)Ord ered By: Dr. Osei on 10-29-2022 Protein Ql (U) Negative Negative [facility] Serum or plasma albumin evert urement (mass/volume)Ordered By: Dr. Osei on 10-29-2022 Albumin [Mass/Vol] 3.5 g/dL 3.2-5.0 [facility] Serum or plasma albumin/glob ulin mass ratioOrdered By: Dr. Osei on 10-29-2022 Albumin/Globulin [Mass ratio] 0.8 {ratio} 0.9-2.4 [facility] Serum or plasma calcium evert urement (mass/volume)Ordered By: Dr. Osei on 10-29-2022 Calcium [Mass/Vol] 9.3 mg/dL 8.5-10.1 [facility] Serum or plasma cortisol radu surement (mass/volume)Ordered By: Dr. Osei on 10-29-2022 Cortisol [Mass/Vol] 25.40 ug/dL 3.44-22.45 [facility] Comment on above: Adult (AM) 5.27 - 22 .45 ug/dL Adult (PM) 3.44 - 16.76 ug/dLPlease note revised CORTISOL reference range effective 2019. Serum or plasma creatinine m easurement (mass/volume)Ordered By: Dr. Osei on 10-29-2022 Creatinine [Mass/Vol] 0.89 mg/dL 0.55-1.02 [facility] Comment on above: The validity of the calculated GFR & GFRAA in patients over 70 years has not been determined. Clinical correlation is essential. Serum or plasma urea nitroge n measurement (mass/volume)Ordered By: Dr. Osei on 10-29-2022 Urea nitrogen [Mass/Vol] 10 mg/dL 7-18 [facility] Thin prep Papanicolaou smear with manual screeningOrdered By: Dr. Osei on 10-29-2022 Thin prep Papanicolaou smear with manual screening 8 U/L 15-37 [facility] Thin prep Papanicolaou smear with manual screening 12 5-15 [facility] Urine blood detectionOrdered By: Dr. Osei on 10-29-2022 RBC Ql (U) 50 /ul Negative [facility] Urine clarityOrdered By: Dr. Osei on 10-29-2022 Clarity (U) Clear Clear [facility] Urine color determinationOrd ered By: Dr. Osei on 10-29-2022 Color (U) Yellow Yellow [facility] Urine glucose detectionOrder ed By: Dr. Osei on 10-29-2022 Glucose Ql (U) Normal mg/dl Normal [facility] Urine leukocyte esterase det ection by dipstickOrdered By: Dr. Osei on 10-29-2022 Leukocyte esterase Test strip Ql (U) Negative Negative [facility] Urine pHOrdered By: Dr. Santos peters on 10-29-2022 pH (U) 8.0 [pH] 5.0 - 8.0 [facility] Urine specific gravity measu rementOrdered By: Dr. Osei on 10-29-2022 Specific gravity (U) [Rel density] 1.010 1.002-1.030 [facility] Urobilinogen Auto test strip Ql (U)Ordered By: Dr. Osei on 10-29-2022 Urobilinogen Ql (U) Normal mg/dl Normal [facility] STREP A MOLECULAR (POC)on Procedural Control Valid [facility] Strep A (POCT) Negative Negative [facility] Basophil percentageon 2021 Chloride [Moles/Vol] 105 mmol/L 98-107 [facility] Work Phone: Glucose [Mass/Vol] 88 mg/dL 74-106 [facility] Work Phone: Potassium [Moles/Vol] 4.6 mmol/L 3.5-5.1 [facility] Work Phone: Comment on above: Moderate Hemolysis, Result may be falsely increased. Sodium [Moles/Vol] 139 mmol/L 136-145 [facility] Work Phone: Laboratory - Chemistry and C hemistry - challengeon 09-11-2022 CO2 [Moles/Vol] 26.0 mmol/L 21.0-32.0 [facility] Work Phone: [phone] Urea nitrogen/Creatinine [Mass ratio] 12.1 mg/mg 08-11 [facility] Work Phone: [phone] No Panel Informationon 09-11 Estimated Creatinine Clearance Calc 100.94 ml/min [facility] Work Phone: Estimated GFR (MDRD) Amer 118 mL/min >60 [facility] Work Phone: Comment on above: GFR Calc Estimated GFR (MDRD) Non-Af Amer 98 mL/min >60 [facility] Work Phone: Comment on above: Non- GFR Calc Serum or plasma calcium evert urement (mass/volume)on 09-11-2022 Calcium [Mass/Vol] 9.3 mg/dL 8.5-10.1 [facility] Work Phone: Serum or plasma creatinine m easurement (mass/volume)on 09-11-2022 Creatinine [Mass/Vol] 0.74 mg/dL 0.55-1.02 [facility] Work Phone: Comment on above: The validity of the calculated GFR & GFRAA in patients over 70 years has not been determined. Clinical correlation is essential. Serum or plasma urea nitroge n measurement (mass/volume)on 09-11-2022 Urea nitrogen [Mass/Vol] 9 mg/dL 7-18 [facility] Work Phone: [phone] Thin prep Papanicolaou smear with manual screeningon 09-11-2022 Thin prep Papanicolaou smear with manual screening 8 5-15 [facility] Work Phone: [phone] Basophil percentageon 2021 Basophil percentage 10-25 SEEN /hpf 0-5 [facility] Work Phone: Bilirubin Test strip Ql (U)o n 09-10-2022 Bilirubin Ql (U) 3 mg/dL Negative [facility] Work Phone: Comment on above: COLOR OF URINE MAY A FFECT DIPSTICK RESULTS. Hyaline casts LM.LPF (Urine sed) [#/Area]on 09-10-2022 Hyaline casts (Urine sed) [#/Area] 0 /[LPF] 0-5 [facility] Work Phone: Ketones Test strip Ql (U)on 09-10-2022 Ketones Ql (U) 5 mg/dl Negative [facility] Work Phone: Laboratory - Chemistry and C hemistry - challengeon 09-10-2022 HCG ( test) Ql (U) Negative [facility] Work Phone: Comment on above: Very dilute urine sp ecimens, as indicated by a low specificgravity, may not contain employee representative levels of hCG. If is still suspected, a first morning urinespecimen should be collected 48 hours later and tested. Mucus LM Ql (Urine sed)on Mucus Ql (Urine sed) 4+ /hpf [facility] Work Phone: Nitrite Test strip Ql (U)on 09-10-2022 Nitrite Ql (U) Positive Negative [facility] Work Phone: Protein Test strip Ql (U)on 09-10-2022 Protein Ql (U) 30 mg/dl Negative [facility] Work Phone: Squamous epithelial cells de tection in urine sediment by light microscopyon 09-10-2022 Epithelial cells.squamous LM Ql (Urine sed) 0-5 SEEN /hpf 5-10 [facility] Work Phone: Urine blood detectionon 08-23 RBC Ql (U) 150 /ul Negative [facility] Work Phone: RBC Ql (U) 5-10 SEEN /hpf 0-5 [facility] Work Phone: Urine clarityon 09-10-2022 Clarity (U) Clear Clear [facility] Work Phone: Urine color determinationon 09-10-2022 Color (U) SEE COMMENT BELOW Yellow [facility] Work Phone: Comment on above: Visual Urine Color: ORANGE Urine glucose detectionon Glucose Ql (U) Normal mg/dl Normal [facility] Work Phone: Urine leukocyte esterase det ection by dipstickon 09-10-2022 Leukocyte esterase Test strip Ql (U) 25 /ul Negative [facility] Work Phone: Urine pHon 09-10-2022 pH (U) 5.0 [pH] 5.0 - 8.0 [facility] Work Phone: Urine sediment bacteria coun t by microscopy (number/high power field)on 09-10-2022 Bacteria LM.HPF (Urine sed) [#/Area] 1 /[HPF] None Seen [facility] Work Phone: Urine specific gravity measu rementon 09-10-2022 Specific gravity (U) [Rel density] 1.030 1.002-1.030 [facility] Work Phone: Urobilinogen Auto test strip Ql (U)on 09-10-2022 Urobilinogen Ql (U) 4 mg/dl Normal [facility] Work Phone: Absolute lymphocyte counton 09-05-2022 Lymphocytes Auto (Unsp spec) [#/Vol] 2.30 10*3/uL 0.83-4.51 [facility] Work Phone: Basophil percentageon 2021 Basophils/100 WBC (Bld) 0.4 % 0-1 [facility] Work Phone: Bilirubin [Mass/Vol] 0.60 mg/dL 0.20-1.00 [facility] Work Phone: Comment on above: For patients on eltr ombopag therapy, use of Dimension [place] TBIL is not recommended. Chloride [Moles/Vol] 102 mmol/L 98-107 [facility] Work Phone: Eosinophils/100 WBC (Bld) 0.6 % 0-5 [facility] Work Phone: Glucose [Mass/Vol] 80 mg/dL 74-106 [facility] Work Phone: Neutrophils (Bld) [#/Vol] 3.7 10*3/uL 2.0-7.7 [facility] Work Phone: Neutrophils/100 WBC (Bld) 54.4 % 47-70 [facility] Work Phone: Potassium [Moles/Vol] 3.7 mmol/L 3.5-5.1 [facility] Work Phone: Protein [Mass/Vol] 7.8 g/dL 6.4-8.2 [facility] Work Phone: Sodium [Moles/Vol] 139 mmol/L 136-145 [facility] Work Phone: WBC (Bld) [#/Vol] 6.8 10*3/uL 4.4-11.0 [facility] Work Phone: Basophil percentage 0 SEEN /hpf 0-5 [facility] Work Phone: Bilirubin Test strip Ql (U)o n 09-05-2022 Bilirubin Ql (U) Negative Negative [facility] Work Phone: Blood erythrocytes count (nu mber/volume)on 09-05-2022 RBC (Bld) [#/Vol] 4.18 10*6/uL 4.2-5.4 [facility] Work Phone: Blood hemoglobin measurement (mass/volume)on 09-05-2022 Hemoglobin (Bld) [Mass/Vol] 11.3 g/dL 12.0-15.0 [facility] Work Phone: Blood lymphocytes/100 leukoc yteson 09-05-2022 Lymphocytes/100 WBC (Bld) 34.0 % 19-41 [facility] Work Phone: Blood monocytes/100 leukocyt eson 09-05-2022 Monocytes/100 WBC (Bld) 10.3 % 0-10 [facility] Work Phone: Blood platelet mean volumeon 09-05-2022 Platelet mean volume (Bld) [Entitic vol] 9.7 fL 6.2-12.0 [facility] Work Phone: Determination of erythrocyte mean corpuscular volume (MCV)on 09-05-2022 MCV (RBC) [Entitic vol] 82.3 fL 81-99 [facility] Work Phone: Hematocrit Auto (Bld) [Volum e fraction]on 09-05-2022 Hematocrit (Bld) [Volume fraction] 34.4 % 37-47 [facility] Work Phone: Ketones Test strip Ql (U)on 09-05-2022 Ketones Ql (U) 5 mg/dl Negative [facility] Work Phone: Laboratory - Chemistry and C hemistry - challengeon 09-05-2022 ALP [Catalytic activity/Vol] 52 U/L 45-117 [facility] Work Phone: ALT [Catalytic activity/Vol] 23 U/L 13-56 [facility] Work Phone: [phone] CO2 [Moles/Vol] 27.0 mmol/L 21.0-32.0 [facility] Work Phone: [phone] Globulin (S) [Mass/Vol] 4.3 g/dL 2.2-4.2 [facility] Work Phone: Urea nitrogen/Creatinine [Mass ratio] 14.4 mg/mg 10-20 [facility] Work Phone: Laboratory - Hematology and Cell countson 09-05-2022 Erythrocyte distribution width (RBC) [Entitic vol] 43.8 fL 35.1-43.9 [facility] Work Phone: [phone] Erythrocyte distribution width (RBC) [Ratio] 14.5 % 11.6-14.6 [facility] Work Phone: [phone] Immature granulocytes/100 WBC (Bld) 0.300 % 0.0-0.9 [facility] Work Phone: [phone] Comment on above: IG% - Immature Granu locytes (promyelocytes, myelocytes and metamyelocytes) > 1% indicates that a LEFT SHIFT is Present. MCH (RBC) [Entitic mass] 27.0 pg 27.0-32.0 [facility] Work Phone: Nucleated RBC/100 WBC (Bld) [Ratio] 0 % 0-5 [facility] Work Phone: [phone] MCHC Auto (RBC) [Mass/Vol]on 09-05-2022 MCHC (RBC) [Mass/Vol] 32.8 g/dL 32-36 [facility] Work Phone: [phone] Mucus LM Ql (Urine sed)on Mucus Ql (Urine sed) 0 SEEN /hpf [facility] Work Phone: [phone] Nitrite Test strip Ql (U)on 09-05-2022 Nitrite Ql (U) Negative Negative [facility] Work Phone: No Panel Informationon 09-05 Estimated Creatinine Clearance Calc 98.28 ml/min [facility] Work Phone: [phone] Estimated GFR (MDRD) Amer 115 mL/min >60 [facility] Work Phone: [phone] Comment on above: GFR Calc Estimated GFR (MDRD) Non-Af Amer 95 mL/min >60 [facility] Work Phone: [phone] Comment on above: Non- GFR Calc Platelets bldon 09-05-2022 Platelets (Bld) [#/Vol] 327 10*3/uL 150-450 [facility] Work Phone: [phone] Protein Test strip Ql (U)on 09-05-2022 Protein Ql (U) 15 mg/dl Negative [facility] Work Phone: [phone] Serum or plasma albumin evert urement (mass/volume)on 09-05-2022 Albumin [Mass/Vol] 3.5 g/dL 3.2-5.0 [facility] Work Phone: Serum or plasma albumin/glob ulin mass ratioon 09-05-2022 Albumin/Globulin [Mass ratio] 0.8 {ratio} 0.9-2.4 [facility] Work Phone: Serum or plasma calcium evert urement (mass/volume)on 09-05-2022 Calcium [Mass/Vol] 9.0 mg/dL 8.5-10.1 [facility] Work Phone: [phone] Serum or plasma creatinine m easurement (mass/volume)on 09-05-2022 Creatinine [Mass/Vol] 0.76 mg/dL 0.55-1.02 [facility] Work Phone: Comment on above: The validity of the calculated GFR & GFRAA in patients over 70 years has not been determined. Clinical correlation is essential. Serum or plasma urea nitroge n measurement (mass/volume)on 09-05-2022 Urea nitrogen [Mass/Vol] 11 mg/dL 7-18 [facility] Work Phone: Squamous epithelial cells de tection in urine sediment by light microscopyon 09-05-2022 Epithelial cells.squamous LM Ql (Urine sed) 0-5 SEEN /hpf 5-10 [facility] Work Phone: Thin prep Papanicolaou smear with manual screeningon 09-05-2022 Thin prep Papanicolaou smear with manual screening 10 U/L 15-37 [facility] Work Phone: Thin prep Papanicolaou smear with manual screening 10 5-15 [facility] Work Phone: Urine blood detectionon 08-23 RBC Ql (U) 150 /ul Negative [facility] Work Phone: RBC Ql (U) 10-25 SEEN /hpf 0-5 [facility] Work Phone: Urine clarityon 09-05-2022 Clarity (U) Clear Clear [facility] Work Phone: Urine color determinationon 11-14-2022 Color (U) Yellow Yellow [facility] Work Phone: Urine glucose detectionon Glucose Ql (U) Normal mg/dl Normal [facility] Work Phone: Urine leukocyte esterase det ection by dipstickon 09-05-2022 Leukocyte esterase Test strip Ql (U) Negative Negative [facility] Work Phone: Urine pHon 09-05-2022 pH (U) 7.0 [pH] 5.0 - 8.0 [facility] Work Phone: Urine sediment bacteria coun t by microscopy (number/high power field)on 09-05-2022 Bacteria LM.HPF (Urine sed) [#/Area] 0 /[HPF] None Seen [facility] Work Phone: Urine specific gravity measu rementon 09-05-2022 Specific gravity (U) [Rel density] 1.015 1.002-1.030 [facility] Work Phone: Urobilinogen Auto test strip Ql (U)on 09-05-2022 Urobilinogen Ql (U) Normal mg/dl Normal [facility] Work Phone: SURGICAL PATHOLOGYon 022 Case Report Surgical Pathology Report Case: [id number] Authorizing Provider: Roby Nathan MD Collected: 09/01/2022 10:17 AM Ordering Location: Ambulatory Surgery Received: 09/01/2022 03:09 PM Pathologist: Roby Bernard MD Specimens: A) - TERMINAL ILEUM BIOPSY B) - COLON BIOPSY, Random colon bx's from the Cecum to the Rectum [facility] FINAL DIAGNOSIS A. Terminal ileum, biopsy: - Ileal mucosa with no significant pathologic abnormality. B. Random colon, biopsy: - Colonic mucosa with no significant pathologic abnormality. Colonic mucosa with no significant pathologic abnormality. [facility] Gross Description A. TERMINAL ILEUM BIOPSY Received in formalin is one piece of craft, soft tissue measuring 0.3 x 0.2 x 0.2 cm. Totally submitted in one cassette. B. COLON BIOPSY Received in formalin are multiple pieces of craft, soft tissue aggregating to 3.1 x 0.3 x 0.2 cm. Totally submitted in two cassettes. Gross examination performed at [facility], [address] [place] [id number] TTN 09/01/2022 9:54 PM [facility] Performing Lab Diagnostic interpretation performed at [facility], [address] [place] [address] CLIA# [id number] [employer] Work: Eric Singh M.D. [facility] COLONOSCOPY DIAGNOSTICon [facility] Glucose Glucometer (BldC) [M ass/Vol]on 08-14-2022 Glucose [Mass/Vol] 162 mg/dL 74-106 [facility] Work Phone: Comment on above: MANAGEMENT OF PATIEN T CARE PER NURSING PROTOCOL Basophil percentageon 2021 Chloride [Moles/Vol] 101 mmol/L 98-107 [facility] Work Phone: Glucose [Mass/Vol] 86 mg/dL 74-106 [facility] Work Phone: Potassium [Moles/Vol] 3.5 mmol/L 3.5-5.1 [facility] Work Phone: Sodium [Moles/Vol] 138 mmol/L 136-145 [facility] Work Phone: Laboratory - Chemistry and C hemistry - challengeon 08-13-2022 CO2 [Moles/Vol] 29.0 mmol/L 21.0-32.0 [facility] Work Phone: Urea nitrogen/Creatinine [Mass ratio] 19.5 mg/mg - [facility] Work Phone: No Panel Informationon 08-13 Estimated Creatinine Clearance Calc 120.47 ml/min [facility] Work Phone: Estimated GFR (MDRD) Amer 147 mL/min >60 [facility] Work Phone: Comment on above: GFR Calc Estimated GFR (MDRD) Non-Af Amer 122 mL/min >60 [facility] Work Phone: Comment on above: Non- GFR Calc Serum or plasma calcium evert urement (mass/volume)on 08-13-2022 Calcium [Mass/Vol] 8.5 mg/dL 8.5-10.1 [facility] Work Phone: Serum or plasma creatinine m easurement (mass/volume)on 08-13-2022 Creatinine [Mass/Vol] 0.62 mg/dL 0.55-1.02 [facility] Work Phone: Comment on above: The validity of the calculated GFR & GFRAA in patients over 70 years has not been determined. Clinical correlation is essential. Serum or plasma urea nitroge n measurement (mass/volume)on 08-13-2022 Urea nitrogen [Mass/Vol] 12 mg/dL 7-18 [facility] Work Phone: Thin prep Papanicolaou smear with manual screeningon 08-13-2022 Thin prep Papanicolaou smear with manual screening 8 5-15 [facility] Work Phone: Basophil percentageon 2021 Basophil percentage 3.8 mg[facility].5-4.9 [facility] - Chemistry and C hemistry - challengeon 08-11-2022 Magnesium [Mass/Vol] 1.8 mg/dL 1.6-2.6 [facility] Work Phone: Absolute lymphocyte counton 08-10-2022 Lymphocytes Auto (Unsp spec) [#/Vol] 1.58 10*3/uL 0.83-4.51 [facility] Work Phone: Basophil percentageon 2021 Basophil percentage 0 SEEN /hpf 0-5 [facility] Work Phone: Basophils/100 WBC (Bld) 0.1 % 0-1 [facility] Work Phone: Eosinophils/100 WBC (Bld) 0.0 % 0-5 [facility] Work Phone: Neutrophils (Bld) [#/Vol] 8.2 10*3/uL 2.0-7.7 [facility] Work Phone: Neutrophils/100 WBC (Bld) 78.0 % 47-70 [facility] Work Phone: WBC (Bld) [#/Vol] 10.5 10*3/uL 4.4-11.0 [facility] Work Phone: Bilirubin Test strip Ql (U)o n 08-10-2022 Bilirubin Ql (U) Negative Negative [facility] Work Phone: Blood erythrocytes count (nu mber/volume)on 08-10-2022 RBC (Bld) [#/Vol] 3.84 10*6/uL 4.2-5.4 [facility] Work Phone: [phone] Blood hemoglobin measurement (mass/volume)on 08-10-2022 Hemoglobin (Bld) [Mass/Vol] 10.4 g/dL 12.0-15.0 [facility] Work Phone: Blood lymphocytes/100 leukoc yteson 08-10-2022 Lymphocytes/100 WBC (Bld) 15.0 % 19-41 [facility] Work Phone: Blood monocytes/100 leukocyt eson 08-10-2022 Monocytes/100 WBC (Bld) 6.5 % 0-10 [facility] Work Phone: Blood platelet mean volumeon 08-10-2022 Platelet mean volume (Bld) [Entitic vol] 10.0 fL 6.2-12.0 [facility] Work Phone: Determination of erythrocyte mean corpuscular volume (MCV)on 08-10-2022 MCV (RBC) [Entitic vol] 82.6 fL 81-99 [facility] Work Phone: Hematocrit Auto (Bld) [Volum e fraction]on 08-10-2022 Hematocrit (Bld) [Volume fraction] 31.7 % 37-47 [facility] Work Phone: Ketones Test strip Ql (U)on 08-10-2022 Ketones Ql (U) 5 mg/dl Negative [facility] Work Phone: Laboratory - Chemistry and C hemistry - challengeon 08-10-2022 Free T4 [Mass/Vol] 0.90 ng/dL 0.76-1.46 [facility] Work Phone: [phone] Laboratory - Hematology and Cell countson 08-10-2022 Erythrocyte distribution width (RBC) [Entitic vol] 42.9 fL 35.1-43.9 [facility] Work Phone: [phone] Erythrocyte distribution width (RBC) [Ratio] 14.4 % 11.6-14.6 [facility] Work Phone: [phone] Immature granulocytes/100 WBC (Bld) 0.400 % 0.0-0.9 [facility] Work Phone: [phone] Comment on above: IG% - Immature Granu locytes (promyelocytes, myelocytes and metamyelocytes) > 1% indicates that a LEFT SHIFT is Present. MCH (RBC) [Entitic mass] 27.1 pg 27.0-32.0 [facility] Work Phone: [phone] Nucleated RBC/100 WBC (Bld) [Ratio] 0 % 0-5 [facility] Work Phone: [phone] MCHC Auto (RBC) [Mass/Vol]on 08-10-2022 MCHC (RBC) [Mass/Vol] 32.8 g/dL 32-36 [facility] Work Phone: Mucus LM Ql (Urine sed)on Mucus Ql (Urine sed) 0 SEEN /hpf [facility] Work Phone: [phone] Nitrite Test strip Ql (U)on 08-10-2022 Nitrite Ql (U) Negative Negative [facility] Work Phone: [phone] No Panel Informationon 08-10 Thyroid Stimulating Hormone (TSH) 0.33 uIU/mL 0.358-3.74 [facility] Work Phone: Platelets bldon 08-10-2022 Platelets (Bld) [#/Vol] 303 10*3/uL 150-450 [facility] Work Phone: Protein Test strip Ql (U)on 08-10-2022 Protein Ql (U) Negative Negative [facility] Work Phone: Serum or plasma cortisol radu surement (mass/volume)on 08-10-2022 Cortisol [Mass/Vol] 21.50 ug/dL 3.44-22.45 [facility] Work Phone: Comment on above: Adult (AM) 5.27 - 22 .45 ug/dL Adult (PM) 3.44 - 16.76 ug/dLPlease note revised CORTISOL reference range effective 2019. Squamous epithelial cells de tection in urine sediment by light microscopyon 08-10-2022 Epithelial cells.squamous LM Ql (Urine sed) 0 SEEN /hpf 5-10 [facility] Work Phone: Urine blood detectionon 07-23 RBC Ql (U) 50 /ul Negative [facility] Work Phone: RBC Ql (U) 0-5 SEEN /hpf 0-5 [facility] Work Phone: Urine clarityon 08-10-2022 Clarity (U) Clear Clear [facility] Work Phone: Urine color determinationon 08-10-2022 Color (U) Yellow Yellow [facility] Work Phone: Urine glucose detectionon Glucose Ql (U) Normal mg/dl Normal [facility] Work Phone: Urine leukocyte esterase det ection by dipstickon 08-10-2022 Leukocyte esterase Test strip Ql (U) Negative Negative [facility] Work Phone: Urine pHon 08-10-2022 pH (U) 7.0 [pH] 5.0 - 8.0 [facility] Work Phone: Urine sediment bacteria coun t by microscopy (number/high power field)on 08-10-2022 Bacteria LM.HPF (Urine sed) [#/Area] 0 /[HPF] None Seen [facility] Work Phone: Urine specific gravity measu rementon 08-10-2022 Specific gravity (U) [Rel density] 1.010 1.002-1.030 [facility] Work Phone: Urobilinogen Auto test strip Ql (U)on 08-10-2022 Urobilinogen Ql (U) Normal mg/dl Normal [facility] Work Phone: [phone] Absolute lymphocyte counton 08-09-2022 Lymphocytes Auto (Unsp spec) [#/Vol] 3.45 10*3/uL 0.83-4.51 [facility] Work Phone: Basophil percentageon 2021 Lactate [Moles/Vol] 2.6 mmol/L 0.4-2.0 [facility] Work Phone: Comment on above: Critical Result(s) C alled at: 15:08:47 08/09/2022 by: Ronaldo Mathews. Results read back by same. Basophils/100 WBC (Bld) 0.5 % 0-1 [facility] Work Phone: Bilirubin [Mass/Vol] 0.60 mg/dL 0.20-1.00 [facility] Work Phone: [phone] Comment on above: For patients on eltr ombopag therapy, use of Dimension [place] TBIL is not recommended. Chloride [Moles/Vol] 108 mmol/L 98-107 [facility] Work Phone: Eosinophils/100 WBC (Bld) 2.4 % 0-5 [facility] Work Phone: Glucose [Mass/Vol] 84 mg/dL 74-106 [facility] Work Phone: Neutrophils (Bld) [#/Vol] 3.7 10*3/uL 2.0-7.7 [facility] Work Phone: Neutrophils/100 WBC (Bld) 44.1 % 47-70 [facility] Work Phone: Potassium [Moles/Vol] 3.4 mmol/L 3.5-5.1 [facility] Work Phone: Protein [Mass/Vol] 8.3 g/dL 6.4-8.2 [facility] Work Phone: [phone] Sodium [Moles/Vol] 143 mmol/L 136-145 [facility] Work Phone: [phone] WBC (Bld) [#/Vol] 8.4 10*3/uL 4.4-11.0 [facility] Work Phone: [phone] Blood erythrocytes count (nu mber/volume)on 08-09-2022 RBC (Bld) [#/Vol] 4.60 10*6/uL 4.2-5.4 [facility] Work Phone: [phone] Blood hemoglobin measurement (mass/volume)on 08-09-2022 Hemoglobin (Bld) [Mass/Vol] 12.2 g/dL 12.0-15.0 [facility] Work Phone: [phone] Blood lymphocytes/100 leukoc yteson 08-09-2022 Lymphocytes/100 WBC (Bld) 40.9 % 19-41 [facility] Work Phone: [phone] Blood monocytes/100 leukocyt eson 08-09-2022 Monocytes/100 WBC (Bld) 11.7 % 0-10 [facility] Work Phone: [phone] Blood platelet mean volumeon 08-09-2022 Platelet mean volume (Bld) [Entitic vol] 10.1 fL 6.2-12.0 [facility] Work Phone: [phone] Determination of erythrocyte mean corpuscular volume (MCV)on 08-09-2022 MCV (RBC) [Entitic vol] 84.1 fL 81-99 [facility] Work Phone: [phone] Direct bilirubinon Bilirubin.direct [Mass/Vol] 0.12 mg/dL 0.00-0.30 [facility] Work Phone: [phone] Glucose Glucometer (BldC) [M ass/Vol]on 08-09-2022 Glucose [Mass/Vol] 91 mg/dL 74-106 [facility] Work Phone: [phone] Comment on above: MANAGEMENT OF PATIEN T CARE PER NURSING PROTOCOL Hematocrit Auto (Bld) [Volum e fraction]on 08-09-2022 Hematocrit (Bld) [Volume fraction] 38.7 % 37-47 [facility] Work Phone: [phone] Laboratory - Chemistry and C hemistry - challengeon 08-09-2022 ALP [Catalytic activity/Vol] 66 U/L 45-117 [facility] Work Phone: [phone] ALT [Catalytic activity/Vol] 20 U/L 13-56 [facility] Work Phone: [phone] CO2 [Moles/Vol] 20.0 mmol/L 21.0-32.0 [facility] Work Phone: [phone] Globulin (S) [Mass/Vol] 4.7 g/dL 2.2-4.2 [facility] Work Phone: [phone] Lipase [Catalytic activity/Vol] 85 U/L 73-393 [facility] Work Phone: [phone] Urea nitrogen/Creatinine [Mass ratio] 9.0 mg/mg 10-20 [facility] Work Phone: [phone] Laboratory - Hematology and Cell countson 08-09-2022 Erythrocyte distribution width (RBC) [Entitic vol] 44.5 fL 35.1-43.9 [facility] Work Phone: [phone] Erythrocyte distribution width (RBC) [Ratio] 14.6 % 11.6-14.6 [facility] Work Phone: [phone] Immature granulocytes/100 WBC (Bld) 0.400 % 0.0-0.9 [facility] Work Phone: [phone] Comment on above: IG% - Immature Granu locytes (promyelocytes, myelocytes and metamyelocytes) > 1% indicates that a LEFT SHIFT is Present. MCH (RBC) [Entitic mass] 26.5 pg 27.0-32.0 [facility] Work Phone: [phone] Nucleated RBC/100 WBC (Bld) [Ratio] 0 % 0-5 [facility] Work Phone: [phone] MCHC Auto (RBC) [Mass/Vol]on 08-09-2022 MCHC (RBC) [Mass/Vol] 31.5 g/dL 32-36 [facility] Work Phone: No Panel Informationon 08-09 Estimated Creatinine Clearance Calc 74.69 ml/min [facility] Work Phone: Estimated GFR (MDRD) Amer 84 mL/min >60 [facility] Work Phone: [phone] Comment on above: GFR Calc Estimated GFR (MDRD) Non-Af Amer 70 mL/min >60 [facility] Work Phone: Comment on above: Non- GFR Calc Platelets bldon 08-09-2022 Platelets (Bld) [#/Vol] 360 10*3/uL 150-450 [facility] Work Phone: Serum or plasma albumin evert urement (mass/volume)on 08-09-2022 Albumin [Mass/Vol] 3.6 g/dL 3.2-5.0 [facility] Work Phone: Serum or plasma calcium evert urement (mass/volume)on 08-09-2022 Calcium [Mass/Vol] 9.2 mg/dL 8.5-10.1 [facility] Work Phone: Serum or plasma creatinine m easurement (mass/volume)on 08-09-2022 Creatinine [Mass/Vol] 1.00 mg/dL 0.55-1.02 [facility] Work Phone: Comment on above: The validity of the calculated GFR & GFRAA in patients over 70 years has not been determined. Clinical correlation is essential. Serum or plasma urea nitroge n measurement (mass/volume)on 08-09-2022 Urea nitrogen [Mass/Vol] 9 mg/dL 05-09 [facility] Work Phone: Thin prep Papanicolaou smear with manual screeningon 08-09-2022 Thin prep Papanicolaou smear with manual screening 10 U/L 15-37 [facility] Work Phone: Thin prep Papanicolaou smear with manual screening 15 5-15 [facility] Work Phone: Absolute lymphocyte counton 07-11-2022 Lymphocytes Auto (Unsp spec) [#/Vol] 3.34 10*3/uL 0.83-4.51 [facility] Work Phone: Basophil percentageon 2021 Basophils/100 WBC (Bld) 0.4 % 0-1 [facility] Work Phone: Bilirubin [Mass/Vol] 0.60 mg/dL 0.20-1.00 [facility] Work Phone: Comment on above: For patients on eltr ombopag therapy, use of [place] TBIL is not recommended. Chloride [Moles/Vol] 101 mmol/L 98-107 [facility] Work Phone: Eosinophils/100 WBC (Bld) 3.4 % 0-5 [facility] Work Phone: Glucose [Mass/Vol] 75 mg/dL 74-106 [facility] Work Phone: Neutrophils (Bld) [#/Vol] 3.4 10*3/uL 2.0-7.7 [facility] Work Phone: Neutrophils/100 WBC (Bld) 43.5 % 47-70 [facility] Work Phone: Potassium [Moles/Vol] 3.9 mmol/L 3.5-5.1 [facility] Work Phone: Protein [Mass/Vol] 8.0 g/dL 6.4-8.2 [facility] Work Phone: Sodium [Moles/Vol] 139 mmol/L 136-145 [facility] Work Phone: WBC (Bld) [#/Vol] 7.7 10*3/uL 4.4-11.0 [facility] Work Phone: Blood erythrocytes count (nu mber/volume)on 07-11-2022 RBC (Bld) [#/Vol] 4.73 10*6/uL 4.2-5.4 [facility] Work Phone: Blood hemoglobin measurement (mass/volume)on 07-11-2022 Hemoglobin (Bld) [Mass/Vol] 12.3 g/dL 12.0-15.0 [facility] Work Phone: Blood lymphocytes/100 leukoc yteson 07-11-2022 Lymphocytes/100 WBC (Bld) 43.4 % 19-41 [facility] Work Phone: Blood monocytes/100 leukocyt eson 07-11-2022 Monocytes/100 WBC (Bld) 9.0 % 0-10 [facility] Work Phone: Blood platelet mean volumeon 07-11-2022 Platelet mean volume (Bld) [Entitic vol] 9.5 fL 6.2-12.0 [facility] Work Phone: Determination of erythrocyte mean corpuscular volume (MCV)on 07-11-2022 MCV (RBC) [Entitic vol] 83.5 fL 81-99 [facility] Work Phone: Direct bilirubinon Bilirubin.direct [Mass/Vol] 0.09 mg/dL 0.00-0.30 [facility] Work Phone: [phone] Hematocrit Auto (Bld) [Volum e fraction]on 07-11-2022 Hematocrit (Bld) [Volume fraction] 39.5 % 37-47 [facility] Work Phone: Laboratory - Chemistry and C hemistry - challengeon 07-11-2022 ALP [Catalytic activity/Vol] 75 U/L 45-117 [facility] Work Phone: ALT [Catalytic activity/Vol] 24 U/L 13-56 [facility] Work Phone: [phone] CO2 [Moles/Vol] 28.0 mmol/L 21.0-32.0 [facility] Work Phone: [phone] Globulin (S) [Mass/Vol] 4.7 g/dL 2.2-4.2 [facility] Work Phone: Lipase [Catalytic activity/Vol] 95 U/L 73-393 [facility] Work Phone: [phone] Urea nitrogen/Creatinine [Mass ratio] 11.3 mg/mg 10-20 [facility] Work Phone: Laboratory - Hematology and Cell countson 07-11-2022 Erythrocyte distribution width (RBC) [Entitic vol] 44.3 fL 35.1-43.9 [facility] Work Phone: [phone] Erythrocyte distribution width (RBC) [Ratio] 14.6 % 11.6-14.6 [facility] Work Phone: [phone] Immature granulocytes/100 WBC (Bld) 0.300 % 0.0-0.9 [facility] Work Phone: [phone] Comment on above: IG% - Immature Granu locytes (promyelocytes, myelocytes and metamyelocytes) > 1% indicates that a LEFT SHIFT is Present. MCH (RBC) [Entitic mass] 26.0 pg 27.0-32.0 [facility] Work Phone: Nucleated RBC/100 WBC (Bld) [Ratio] 0 % 0-5 [facility] Work Phone: MCHC Auto (RBC) [Mass/Vol]on 07-11-2022 MCHC (RBC) [Mass/Vol] 31.1 g/dL 32-36 [facility] Work Phone: No Panel Informationon 07-11 Estimated Creatinine Clearance Calc 94.55 ml/min [facility] Work Phone: Estimated GFR (MDRD) Amer 110 mL/min >60 [facility] Work Phone: [phone] Comment on above: GFR Calc Estimated GFR (MDRD) Non-Af Amer 91 mL/min >60 [facility] Work Phone: Comment on above: Non- GFR Calc Platelets bldon 07-11-2022 Platelets (Bld) [#/Vol] 376 10*3/uL 150-450 [facility] Work Phone: Serum or plasma albumin evert urement (mass/volume)on 07-11-2022 Albumin [Mass/Vol] 3.3 g/dL 3.2-5.0 [facility] Work Phone: Serum or plasma calcium evert urement (mass/volume)on 07-11-2022 Calcium [Mass/Vol] 9.2 mg/dL 8.5-10.1 [facility] Work Phone: Serum or plasma creatinine m easurement (mass/volume)on 07-11-2022 Creatinine [Mass/Vol] 0.79 mg/dL 0.55-1.02 [facility] Work Phone: Comment on above: The validity of the calculated GFR & GFRAA in patients over 70 years has not been determined. Clinical correlation is essential. Serum or plasma urea nitroge n measurement (mass/volume)on 07-11-2022 Urea nitrogen [Mass/Vol] 9 mg/dL 7-18 [facility] Work Phone: Thin prep Papanicolaou smear with manual screeningon 07-11-2022 Thin prep Papanicolaou smear with manual screening 10 U/L 15-37 [facility] Work Phone: Thin prep Papanicolaou smear with manual screening 10 5-15 [facility] Work Phone: BASIC METABOLIC PANELOrdered By: Emi Caruso on 07-05-2022 Anion gap [Moles/Vol] 12 mmol/L 7 - 17 mmol/L [facility] Calcium [Mass/Vol] 8.5 mg/dL Low 8.6 - 10. 5 mg/dL [facility] Chloride [Moles/Vol] 105 mmol/L 98 - 10 8 mmol/L [facility] CO2 [Moles/Vol] 30 mmol/L 21 - 31 mmol/L [facility] Creatinine [Mass/Vol] 0.71 mg/dL 0.50 - 1.20 mg/dL [facility] [facility] G[facility]/1.73 sq M.predicted CKD-EPI (S/P/Bld) [Vol rate/Area] >90 >=60 mL/min/1.73m 2 [facility] Comment on above: Reported eGFR is bas ed on the CKD-EPI 2020 equation using creatinine, age, and sex. Glucose [Mass/Vol] 88 mg/dL 70 - 99 mg/dL [facility] Interpretation and review of laboratory results Abnormal [facility] Osmolality Calc [Osmolality] 296 [facility] Potassium [Moles/Vol] 3.9 mmol/L 3.5 - 5.0 mmol/L [facility] Sodium [Moles/Vol] 143 mmol/L 135 - 145 mmol/L [facility] Comment on above: Results inconsistent with previous results Urea nitrogen [Mass/Vol] 10 mg/dL 7 - 25 mg/dL [facility] Urea nitrogen/Creatinine [Mass ratio] 14 mg/mg [facility] BASIC METABOLIC PANELon 06-23 Anion gap [Moles/Vol] 12 mmol/L Normal 7-17 [facility] Comment on above: Performed By: #### I PB MGO, C7C, HFP #### [facility] (DEFAULT) [address] [place] [address] 49735 Calcium [Mass/Vol] 8.5 mg/dL Low 8.6-10.5 [facility] Comment on above: Performed By: #### I PB, MGO, C7C, HFP #### [facility] (DEFAULT) [address] [place] [address] 63836 Chloride [Moles/Vol] 105 mmol/L Normal 98-108 [facility] Comment on above: Performed By: #### I PB, MGO, C7C, HFP #### [facility] (DEFAULT) [address] [place] [address] 08543 CO2 [Moles/Vol] 30 mmol/L Normal 21-31 [place] Comment on above: Performed By: #### I PB, MGO, C7C, HFP #### [facility] (DEFAULT) [address] [place] [address] 82198 Creatinine [Mass/Vol] 0.71 mg/dL Normal 0.50-1.20 [facility] Comment on above: Performed By: #### I PB, MGO, C7C, HFP #### [facility] (DEFAULT) [address] [place] [address] 53693 eGFR, CKD-EPI, Female >90 Normal >=60 [facility] Comment on above: Result Comment: Repo rted eGFR is based on the CKD-EPI 2020 equation using creatinine, age, and sex. Performed By: #### I PB, MGO, C7C, HFP #### [facility] (DEFAULT) [address] [place] [address] 52862 Glucose [Mass/Vol] 88 mg/dL Normal 70-99 [facility] Comment on above: Performed By: #### I PB, MGO, C7C, HFP #### [facility] (DEFAULT) [address] [place] [address] 06376 Osmolality [Osmolality] 296 mosm/kg Normal 278-305 [facility] Comment on above: Performed By: #### I PB, MGO, C7C, HFP #### [facility] (DEFAULT) [address] [place] [address] 13683 Potassium [Moles/Vol] 3.9 mmol/L Normal 3.5-5.0 [facility] Comment on above: Performed By: #### I PB, MGO, C7C, HFP #### [facility] (DEFAULT) [address] [place] [address] 64364 Sodium [Moles/Vol] 143 mmol/L Normal 135-145 [facility] Comment on above: Result Comment: Resu lts inconsistent with previous results Performed By: #### I PB, MGO, C7C, HFP #### [facility] (DEFAULT) [address] [place] [address] 11128 Urea nitrogen [Mass/Vol] 10 mg/dL Normal 7-25 [facility] Comment on above: Performed By: #### I PB, MGO, C7C, HFP #### [facility] (DEFAULT) [address] [place] [address] 48988 Urea nitrogen/Creatinine [Mass ratio] 14 mg/mg Normal [facility] Comment on above: Performed By: #### I PB, MGO, C7C, HFP #### [facility] (DEFAULT) [address] [place] [address] 79080 HEPATIC FUNCTION PANELon Albumin [Mass/Vol] 3.6 g/dL 3.5 - 5.0 g/dL [facility] ALP [Catalytic activity/Vol] 66 U/L 32 - 126 U/L [facility] ALT [Catalytic activity/Vol] 39 U/L 9 - 48 U/L [facility] AST [Catalytic activity/Vol] 17 U/L 10 - 39 U/L [facility] Bilirubin [Mass/Vol] 0.6 mg/dL <1.5 [facility] Bilirubin.direct [Mass/Vol] 0.1 mg/dL <0.3 [facility] Protein [Mass/Vol] 6.7 g/dL 6.4 - 8.3 g/dL [facility] Albumin [Mass/Vol] 3.6 g/dL Normal 3.5-5.0 [facility] Comment on above: Performed By: #### I PB, MGO, C7C, HFP #### [facility] (DEFAULT) [address] [place] [address] 35705 ALP [Catalytic activity/Vol] 66 U/L Normal 32-126 [facility] Comment on above: Performed By: #### I PB, MGO, C7C, HFP #### [facility] (DEFAULT) [address] [place] [address] 84136 ALT [Catalytic activity/Vol] 39 U/L Normal 9-48 [facility] Comment on above: Performed By: #### I PB, MGO, C7C, HFP #### [facility] (DEFAULT) [address] [place] [address] 61810 AST [Catalytic activity/Vol] 17 U/L Normal 10-39 [facility] Comment on above: Performed By: #### I PB, MGO, C7C, HFP #### [facility] (DEFAULT) [address] [place] [address] 74645 Bilirubin [Mass/Vol] 0.6 mg/dL Normal <1.5 [facility] Comment on above: Performed By: #### I PB, MGO, C7C, HFP #### [facility] (DEFAULT) [address] [place] [address] 98325 Bilirubin.indirect [Mass/Vol] 0.1 mg/dL Normal <0.3 [facility] Comment on above: Performed By: #### I PB, MGO, C7C, HFP #### [facility] (DEFAULT) [address] [place] [address] 59717 Protein [Mass/Vol] 6.7 g/dL Normal 6.4-8.3 [facility] Comment on above: Performed By: #### I PB, MGO, C7C, HFP #### [facility] (DEFAULT) [address] [place] [address] 27299 MAGNESIUMon 07-05-2022 Magnesium [Mass/Vol] 1.8 mg/dL 1.6 - 2 .6 mg/dL [facility] Magnesium [Mass/Vol] 1.8 mg/dL Normal 1.6-2.6 [facility] Comment on above: Performed By: #### I PB, MGO, C7C, HFP #### [facility] (DEFAULT) [address] [place] [address] 97787 No Panel Informationon 07-05 Interpretation and review of laboratory results Normal [facility] PHOSPHATE, INORGANICon 07-05 Phosphate [Mass/Vol] 4.3 mg/dL 2.2 - 4 .6 mg/dL [facility] Phosphorous 4.3 mg/dL Normal 2.2-4.6 [facility] Comment on above: Performed By: #### I PB, MGO, C7C, HFP #### [facility] (DEFAULT) [address] [place] [address] 71848 PLATELET COUNTon 07-05-2022 Interpretation and review of laboratory results Normal [facility] Platelet mean volume (Bld) [Entitic vol] 9.9 fL 8.5 - 12.2 fL [facility] Platelets (Bld) [#/Vol] 324 10*3/uL 150 - 393 K/uL [facility] Platelet mean volume (Bld) [Entitic vol] 9.9 fL Normal 8.5-12.2 [facility] Comment on above: Performed By: #### I PB, MGO, C7C, HFP #### [facility] (DEFAULT) [address] [place] [address] 46959 Platelets (Bld) [#/Vol] 324 10*3/uL Normal 150-393 [facility] Comment on above: Performed By: #### I PB, MGO, C7C, HFP #### [facility] (DEFAULT) [address] [place] [address] 09484 BASIC METABOLIC PANELon 06-23 Anion gap [Moles/Vol] 10 mmol/L Normal 7-17 [facility] Comment on above: Performed By: #### I PB, MGO, C7C, HFP #### [facility] (DEFAULT) [address] [place] [address] 12223 Calcium [Mass/Vol] 9.0 mg/dL Normal 8.6-10.5 [facility] Comment on above: Performed By: #### I PB, MGO, C7C, HFP #### [facility] (DEFAULT) [address] [place] [address] 66466 Chloride [Moles/Vol] 103 mmol/L Normal 98-108 [facility] Comment on above: Performed By: #### I PB, MGO, C7C, HFP #### [facility] (DEFAULT) [address] [place] [address] 89503 CO2 [Moles/Vol] 28 mmol/L Normal 21-31 [place] Comment on above: Performed By: #### I PB, MGO, C7C, HFP #### [facility] (DEFAULT) [address] [place] [address] 41488 Creatinine [Mass/Vol] 0.62 mg/dL Normal 0.50-1.20 [facility] Comment on above: Performed By: #### I PB, MGO, C7C, HFP #### [facility] (DEFAULT) [address] [place] [address] 37861 eGFR, CKD-EPI, Female >90 Normal >=60 [facility] Comment on above: Result Comment: Repo rted eGFR is based on the CKD-EPI 2020 equation using creatinine, age, and sex. Performed By: #### I PB, MGO, C7C, HFP #### [facility] (DEFAULT) [address] [place] [address] 35833 Glucose [Mass/Vol] 77 mg/dL Normal 70-99 [facility] Comment on above: Performed By: #### I PB, MGO, C7C, HFP #### [facility] (DEFAULT) [address] [place] [address] 67501 Osmolality [Osmolality] 284 mosm/kg Normal 278-305 [facility] Comment on above: Performed By: #### I PB, MGO, C7C, HFP #### [facility] (DEFAULT) [address] [place] [address] 33608 Potassium [Moles/Vol] 4.1 mmol/L Normal 3.5-5.0 [facility] Comment on above: Performed By: #### I PB, MGO, C7C, HFP #### [facility] (DEFAULT) [address] [place] [address] 61404 Sodium [Moles/Vol] 137 mmol/L Normal 135-145 [facility] Comment on above: Performed By: #### I PB, MGO, C7C, HFP #### [facility] (DEFAULT) [address] [place] [address] Urea nitrogen [Mass/Vol] 8 mg/dL Normal 7-25 [facility] Comment on above: Performed By: #### I PB, MGO, C7C, HFP #### [facility] (DEFAULT) [address] [place] [address] Urea nitrogen/Creatinine [Mass ratio] 13 mg/mg Normal [facility] Comment on above: Performed By: #### I PB, MGO, C7C, HFP #### [facility] (DEFAULT) [address] [place] [address] Anion gap [Moles/Vol] 10 mmol/L 7 - 17 mmol/L [facility] Calcium [Mass/Vol] 9.0 mg/dL 8.6 - 10. 5 mg/dL [facility] Chloride [Moles/Vol] 103 mmol/L 98 - 10 8 mmol/L [facility] CO2 [Moles/Vol] 28 mmol/L 21 - 31 mmol/L [facility] Creatinine [Mass/Vol] 0.62 mg/dL 0.50 - 1.20 mg/dL [facility] GFR/1.73 sq M.predicted CKD-EPI (S/P/Bld) [Vol rate/Area] >90 >=60 mL/min/1.73m 2 [facility] Comment on above: Reported eGFR is bas ed on the CKD-EPI 2020 equation using creatinine, age, and sex. Glucose [Mass/Vol] 77 mg/dL 70 - 99 mg/dL [facility]] [facility] Potassium [Moles/Vol] 4.1 mmol/L 3.5 - 5.0 mmol/L [facility] Sodium [Moles/Vol] 137 mmol/L 135 - 145 mmol/L [facility] Urea nitrogen [Mass/Vol] 8 mg/dL 7 - 25 mg/dL [facility] Urea nitrogen/Creatinine [Mass ratio] 13 mg/mg [facility] CBC,PLATELETSon 07-04-2021 Hematocrit (Bld) [Volume fraction] 35.1 % Normal 34.9-44.3 [facility] Comment on above: Performed By: #### I PB, MGO, C7C, HFP #### [facility] (DEFAULT) [address] [place] [address] 69251 Hemoglobin (Bld) [Mass/Vol] 11.3 g/dL Low 11.4-15.2 [facility] Comment on above: Performed By: #### I PB, MGO, C7C, HFP #### [facility] (DEFAULT) [address] [place] [address] 76309 MCV (RBC) [Entitic vol] 83.2 fL Normal 79.6-97.7 [facility] Comment on above: Performed By: #### I PB, MGO, C7C, HFP #### [facility] (DEFAULT) [address] [place] [address] 70197 Mean Cell Hgb 26.8 pg Normal 25.9-33.9 [facility] Comment on above: Performed By: #### I PB, MGO, C7C, HFP #### [facility] (DEFAULT) [address] [place] [address] 45631 Mean Cell Hgb Conc 32.2 g/dL Normal 31.4-35.9 [facility] Comment on above: Performed By: #### I PB, MGO, C7C, HFP #### [facility] (DEFAULT) [address] [place] [address] 05426 Platelet mean volume (Bld) [Entitic vol] 10.1 fL Normal 8.5-12.2 [facility] Comment on above: Performed By: #### I PB, MGO, C7C, HFP #### [facility] (DEFAULT) [address] [place] [address] 51036 Platelets (Bld) [#/Vol] 302 10*3/uL Normal 150-393 [facility] Comment on above: Performed By: #### I PB, MGO C7C, HFP #### [facility] (DEFAULT) [address] [place] [address] 58473 RBC (Bld) [#/Vol] 4.22 10*6/uL Normal 3.91-5.04 [facility] Comment on above: Performed By: #### I PB, MGO C7C, HFP #### [facility] (DEFAULT) [address] [place] [address] 29593 RBC Distribution 15.0 % High 10.8-14.9 [facility] Comment on above: Performed By: #### I PB, MGO C7C, HFP #### [facility] (DEFAULT) [address] [place] [address] 93132 WBC (Bld) [#/Vol] 12.00 10*3/uL High 3.99-11.19 [facility] Comment on above: Performed By: #### I PB, MGO C7C, HFP #### [facility] (DEFAULT) [address] [place] [address] 16575 Erythrocyte distribution width (RBC) [Ratio] 15.0 % High 10.8 - 14.9 % [facility] Hematocrit (Bld) [Volume fraction] 35.1 % 34.9 - 44.3 % [facility] Hemoglobin (Bld) [Mass/Vol] 11.3 g/dL Low 11.4 - 15.2 g/dL [facility] Interpretation and review of laboratory results Abnormal [facility] MCH (RBC) [Entitic mass] 26.8 pg 25.9 - 33.9 pg [facility] MCHC (RBC) [Mass/Vol] 32.2 g/dL 31.4 - 35.9 g/dL [facility] MCV (RBC) [Entitic vol] 83.2 fL 79.6 - 97.7 fL [facility] Platelet mean volume (Bld) [Entitic vol] 10.1 fL 8.5 - 12.2 fL [facility] Platelets (Bld) [#/Vol] 302 10*3/uL 150 - 393 K/uL [facility] RBC (d) [#/Vol] 4.22 10*6/[facility]L [facility] WBC (d[facility] [#/Vol] 12.00 10*3/uL High 3.99 - 11 .19 K/uL [facility] DIAGNOSTIC UPPER ENDOSCOPYon 07-04-2022 [facility] Patient Name: Sonia Szymanski Procedure Date: 07/04/2022 3:36 PM Date of : 1995 Admit Type: Inpatient Age: 27 Room: [facility] room 2 Gender: Female Note Status: Finalized Attending MD: Charleen Ward MD Procedure: Upper GI endoscopy Attending Participation: I personally performed the entire procedure. Indications: Abdominal pain in the right upper quadrant Providers: Charleen Ward MD, Porsha Moon, SKIP (Nurse), [facility] Patient Profile: This is a 27 year old female. Refer to note in patient chart for documentation of history and physical. Has RUQ abd pain 7/10 currently. SBP 90s. Referring MD: Vince Ingram DO Complications: No immediate complications. Medicines: Midazolam 4 mg IV, Fentanyl 50 micrograms IV, Diphenhydramine 25 mg IV Requesting Provider: Procedure: Pre-Anesthesia Assessment: - Prior to the procedure, a History and Physical was performed, and patient medications and allergies were reviewed. The risks and benefits of the procedure and the sedation options and risks were discussed with the patient. All questions were answered and informed consent was obtained. Patient identification and proposed procedure were verified by the physician, the nurse and the electrical service technician in the procedure room at 16:00 PM. Mental Status Examination: alert and oriented. Airway Examination: normal oropharyngeal airway and neck mobility and Mallampati Class II (the uvula but not tonsillar pillars visualized). Respiratory Examination: clear to auscultation. CV Examination: RRR, no murmurs, no S3 or S4 and Abdominal examination: tenderness to palpation, +BS, nondistended, soft. Prophylactic Antibiotics: The patient does not require prophylactic antibiotics. Prior Anticoagulants: The patient has taken Lovenox (enoxaparin), last dose was 5 days prior to procedure. ASA Grade Assessment: II - A patient with mild systemic disease. After reviewing the risks and benefits, the patient was deemed in satisfactory condition to undergo the procedure. The anesthesia plan was to use moderate sedation / analgesia (conscious sedation). Immediately prior to administration of medications, the patient was re-assessed for adequacy to receive sedatives. The physical status of the patient was re-assessed after the procedure. - I have reviewed and am in agreement with the patient history as documented in [facility]. - Prior Aspirin/ NSAID therapy: The patient has taken no aspirin or NSAID medications. After obtaining informed consent, the endoscope was passed under direct vision. Throughout the procedure, the patient's blood pressure, pulse, and oxygen saturations were monitored continuously. The EGD scope was introduced through the mouth, and advanced to the second part of duodenum. The upper GI endoscopy was accomplished without difficulty. The patient tolerated the procedure fairly well (started to wake up in the last minutes and was trying to pull out the scope but otherwise very calm. Findings: The examined esophagus was normal. The Z-line was regular and was found 36 cm from the incisors. Bilious fluid was found in the gastric body. The exam of the stomach was otherwise normal. The examined duodenum was normal. Biopsies were taken with a cold forceps in the gastric body, at the incisura and in the gastric antrum for histology. Estimated blood loss was minimal. Impression: - Normal esophagus. - Z-line regular, 36 cm from the incisors. - Bilious gastric fluid. - Normal examined duodenum. - Biopsies were taken with a cold forc (more content not included)... LAB, [facility] Radiology Study observation (narrative) [facility] GLUCOSE POCon 07-04-2022 Glucose [Mass/Vol] 84 mg/dL 70 - 99 mg/dL [facility] POC Sample Type CAPBL [facility] Test performed at address of the patient encounter. [facility] HEPATIC FUNCTION PANELon Albumin [Mass/Vol] 3.7 g/dL Normal 3.5-5.0 [facility] Comment on above: Performed By: #### I PB, MGO, C7C, HFP #### [facility] (DEFAULT) [address] [place] [address] 20636 ALP [Catalytic activity/Vol] 73 U/L Normal 32-126 [facility] Comment on above: Performed By: #### I PB, MGO, C7C, HFP #### [facility] (DEFAULT) [address] [place] [address] 88363 ALT [Catalytic activity/Vol] 57 U/L High 9-48 [facility] Comment on above: Performed By: #### I PB, MGO, C7C, HFP #### [facility] (DEFAULT) [address] [place] [address] 53657 AST [Catalytic activity/Vol] 49 U/L High 10-39 [facility] Comment on above: Performed By: #### I PB, MGO, C7C, HFP #### [facility] (DEFAULT) [address] [place] [address] 59016 Bilirubin [Mass/Vol] 0.9 mg/dL Normal <1.5 [facility] Comment on above: Performed By: #### I PB, MGO, C7C, HFP #### [facility] (DEFAULT) [address] [place] [address] 36424 Bilirubin.indirect [Mass/Vol] 0.2 mg/dL Normal <0.3 [facility] Comment on above: Performed By: #### I PB, MGO, C7C, HFP #### [facility] (DEFAULT) [address] [place] [address] 20673 Protein [Mass/Vol] 6.6 g/dL Normal 6.4-8.3 [facility] Comment on above: Performed By: #### I PB, MGO, C7C, HFP #### [facility] (DEFAULT) [address] [place] [address] 90620 Albumin [Mass/Vol] 3.7 g/dL 3.5 - 5.0 g/dL [facility] ALP [Catalytic activity/Vol] 73 U/L 32 - 126 U/L [facility] ALT [Catalytic activity/Vol] 57 U/L High 9 - 48 U/L [facility] AST [Catalytic activity/Vol] 49 U/L High 10 - 39 U/L [facility] Bilirubin [Mass/Vol] 0.9 mg/dL <1.5 [facility] Bilirubin.direct [Mass/Vol] 0.2 mg/dL <0.3 [facility] Interpretation and review of laboratory results Abnormal [facility] Protein [Mass/Vol] 6.6 g/dL 6.4 - 8.3 g/dL [facility] MAGNESIUMon 07-04-2022 Magnesium [Mass/Vol] 2.0 mg/dL Normal 1.6-2.6 [facility] Comment on above: Performed By: #### I PB MGOBoC, HFP #### [facility] (DEFAULT) [address] [place] [address] 27246 Magnesium [Mass/Vol] 2.0 mg/dL 1.6 - 2 .6 mg/dL [facility] No Panel Informationon 07-04 Interpretation and review of laboratory results Normal [facility] PHOSPHATE, INORGANICon 07-04 Phosphorous 4.6 mg/dL Normal 2.2-4.6 [facility] Comment on above: Performed By: #### I PB MGO C7C, HFP #### [facility] (DEFAULT) [address] [place] [address] 93572 Phosphate [Mass/Vol] 4.6 mg/dL 2.2 - 4 .6 mg/dL [facility] BASIC METABOLIC PANELon 06-23 Anion gap [Moles/Vol] 12 mmol/L Normal 7-17 [facility] Comment on above: Performed By: #### I PB MGO C7C, HFP #### [facility] (DEFAULT) [address] [place] [address] 14399 Calcium [Mass/Vol] 8.7 mg/dL Normal 8.6-10.5 [facility] Comment on above: Performed By: #### I PB, MGO, C7C, HFP #### [facility] (DEFAULT) [address] [place] [address] 09974 Chloride [Moles/Vol] 102 mmol/L Normal 98-108 [facility] Comment on above: Performed By: #### I PB, MGO, C7C, HFP #### [facility] (DEFAULT) [address] [place] [address] 23352 CO2 [Moles/Vol] 27 mmol/L Normal 21-31 [place] Comment on above: Performed By: #### I PB, MGO, C7C, HFP #### [facility] (DEFAULT) [address] [place] [address] 40064 Creatinine [Mass/Vol] 0.63 mg/dL Normal 0.50-1.20 [facility] Comment on above: Performed By: #### I PB, MGO, C7C, HFP #### [facility] (DEFAULT) [address] [place] [address] 10899 eGFR, CKD-EPI, Female >90 Normal >=60 [facility] Comment on above: Result Comment: Repo rted eGFR is based on the CKD-EPI 2020 equation using creatinine, age, and sex. Performed By: #### I PB, MGO, C7C, HFP #### [facility] (DEFAULT) [address] [place] [address] 40169 Glucose [Mass/Vol] 98 mg/dL Normal 70-99 [facility] Comment on above: Performed By: #### I PB, MGO, C7C, HFP #### [facility] (DEFAULT) [address] [place] [address] 49939 Osmolality [Osmolality] 285 mosm/kg Normal 278-305 [facility] Comment on above: Performed By: #### I PB, MGO, C7C, HFP #### [facility] (DEFAULT) [address] [place] [address] 83722 Potassium [Moles/Vol] 3.8 mmol/L Normal 3.5-5.0 [facility] Comment on above: Performed By: #### I PB, MGO, C7C, HFP #### [facility] (DEFAULT) [address] [place] [address] 92671 Sodium [Moles/Vol] 137 mmol/L Normal 135-145 [facility] Comment on above: Performed By: #### I PB, MGO, C7C, HFP #### [facility] (DEFAULT) [address] [place] [address] 26255 Urea nitrogen [Mass/Vol] 9 mg/dL Normal 7-25 [facility] Comment on above: Performed By: #### I PB, MGO, C7C, HFP #### [facility] (DEFAULT) [address] [place] [address] 33006 Urea nitrogen/Creatinine [Mass ratio] 14 mg/mg Normal [facility] Comment on above: Performed By: #### I PB, MGO, C7C, HFP #### [facility] (DEFAULT) [address] [place] [address] 53201 Anion gap [Moles/Vol] 12 mmol/L 7 - 17 mmol/L [facility] Calcium [Mass/Vol] 8.7 mg/dL 8.6 - 10. 5 mg/dL [facility] Chloride [Moles/Vol] 102 mmol/L 98 - 10 8 mmol/L [facility] CO2 [Moles/Vol] 27 mmol/L 21 - 31 mmol/L [facility] Creatinine [Mass/Vol] 0.63 mg/dL 0.50 - 1.20 mg/dL [facility] GFR/1.73 sq M.predicted CKD-EPI (S/P/Bld) [Vol rate/Area] >90 >=60 mL/min/1.73m 2 [facility] Comment on above: Reported eGFR is bas ed on the CKD-EPI 2021 equation using creatinine, age, and sex. Glucose [Mass/Vol] 98 mg/dL 70 - 99 mg/dL [facility] Osmolality Calc [Osmolality] 285 [facility] Potassium [Moles/Vol] 3.8 mmol/L 3.5 - 5.0 mmol/L [facility] Sodium [Moles/Vol] 137 mmol/L 135 - 145 mmol/L [facility] Urea nitrogen [Mass/Vol] 9 mg/dL 7 - 25 mg/dL [facility] Urea nitrogen/Creatinine [Mass ratio] 14 mg/mg [facility] EXTRA MICROon 07-03-2022 [facility] HEPATIC FUNCTION PANELon Albumin [Mass/Vol] 3.6 g/dL Normal 3.5-5.0 [facility] Comment on above: Performed By: #### I UNIQUE REGALADO C7C, HFP #### [facility] (DEFAULT) [address] [place] [address] 44562 ALP [Catalytic activity/Vol] 58 U/L Normal 32-126 [facility] Comment on above: Performed By: #### UNIQUE CASTRO C7C, HFP #### [facility] (DEFAULT) [address] [place] [address] 04095 ALT [Catalytic activity/Vol] 30 U/L Normal 9-48 [facility] Comment on above: Performed By: #### [place] PB MGLc C7C, HFP #### [facility] (DEFAULT) [address] [place] [address] 46153 AST [Catalytic activity/Vol] 10 U/L Normal 10-39 [facility] Comment on above: Performed By: #### [place] PB MGO C7C, HFP #### [facility] (DEFAULT) [address] [place] [address] 24215 Bilirubin [Mass/Vol] 0.5 mg/dL Normal <1.5 [facility] Comment on above: Performed By: #### [place] PB, MGO, C7C, HFP #### [facility] (DEFAULT) [address] [place] [address] Bilirubin.indirect [Mass/Vol] 0.1 mg/dL Normal <0.3 [facility] Comment on above: Performed By: #### I PB, MGO, C7C, HFP #### [facility] (DEFAULT) [address] [place] [address] Protein [Mass/Vol] 6.4 g/dL Normal 6.4-8.3 [facility] Comment on above: Performed By: #### I PB, MGO, C7C, HFP #### [facility] (DEFAULT) [address] [place] [address] 68782 Albumin [Mass/Vol] 3.6 g/dL 3.5 - 5.0 g/dL [facility] ALP [Catalytic activity/Vol] 58 U/L 32 - 126 U/L [facility] ALT [Catalytic activity/Vol] 30 U/L 9 - 48 U/L [facility] AST [Catalytic activity/Vol] 10 U/L 10 - 39 U/L [facility] Bilirubin [Mass/Vol] 0.5 mg/dL <1.5 [facility] Bilirubin.direct [Mass/Vol] 0.1 mg/dL <0.3 [facility] Protein [Mass/Vol] 6.4 g/dL 6.4 - 8.3 g/dL [facility] MAGNESIUMon 07-03-2022 Magnesium [Mass/Vol] 1.7 mg/dL Normal 1.6-2.6 [facility] Comment on above: Performed By: #### I PB, MGO, C7C, HFP #### [facility] (DEFAULT) [address] [place] [address] 07156 Magnesium [Mass/Vol] 1.7 mg/dL 1.6 - 2 .6 mg/dL [facility] No Panel Informationon 07-03 Interpretation and review of laboratory results Normal [facility] PHOSPHATE, INORGANICon 07-032021 Phosphorous 4.4 mg/dL Normal 2.2-4.6 [facility] Comment on above: Performed By: #### I PB MGO C7C, HFP #### [facility] (DEFAULT) [address] [place] [address] 35582 Phosphate [Mass/Vol] 4.4 mg/dL 2.2 - 4 .6 mg/dL [facility] BASIC METABOLIC PANELon 06-23-2021 Anion gap [Moles/Vol] 13 mmol/L Normal 7-17 [facility] Comment on above: Performed By: #### [place] PB, MGO, C7C, HFP #### [facility] (DEFAULT) [address] [place] [address] 36956 Calcium [Mass/Vol] 8.7 mg/dL Normal 8.6-10.5 [facility] Comment on above: Performed By: #### [place] PB, MGO, C7C, HFP #### [facility] (DEFAULT) [address] [place] [address] 13159 Chloride [Moles/Vol] 102 mmol/L Normal 98-108 [facility] Comment on above: Performed By: #### [place] PB, MGO, C7C, HFP #### [facility] (DEFAULT) [address] [place] [address] 20055 CO2 [Moles/Vol] 26 mmol/L Normal 21-31 [place] Comment on above: Performed By: #### I PB, MGO, C7C, HFP #### [facility] (DEFAULT) [address] [place] [address] 33349 Creatinine [Mass/Vol] 0.71 mg/dL Normal 0.50-1.20 [facility] Comment on above: Performed By: #### I PB, MGO, C7C, HFP #### [facility] (DEFAULT) [address] [place] [address] 71049 eGFR, CKD-EPI, Female >90 Normal >=60 [facility] Comment on above: Result Comment: Repo rted eGFR is based on the CKD-EPI 2020 equation using creatinine, age, and sex. Performed By: #### I PB, MGO, C7C, HFP #### [facility] (DEFAULT) [address] [place] [address] 09532 Glucose [Mass/Vol] 86 mg/dL Normal 70-99 [facility] Comment on above: Performed By: #### I PB, MGO, C7C, HFP #### [facility] (DEFAULT) [address] [place] [address] 14823 Osmolality [Osmolality] 285 mosm/kg Normal 278-305 [facility] Comment on above: Performed By: #### I PB, MGO, C7C, HFP #### [facility] (DEFAULT) [address] [place] [address] 38066 Potassium [Moles/Vol] 4.1 mmol/L Normal 3.5-5.0 [facility] Comment on above: Performed By: #### I PB, MGO, C7C, HFP #### [facility] (DEFAULT) [address] [place] [address] 24849 Sodium [Moles/Vol] 137 mmol/L Normal 135-145 [facility] Comment on above: Performed By: #### I PB, MGO, C7C, HFP #### [facility] (DEFAULT) [address] [place] [address] 21936 Urea nitrogen [Mass/Vol] 8 mg/dL Normal 7-25 [facility] Comment on above: Performed By: #### I PB, MGO, C7C, HFP #### [facility] (DEFAULT) [address] [place] [address] 12698 Urea nitrogen/Creatinine [Mass ratio] 11 mg/mg Normal [facility] Comment on above: Performed By: #### I PB, MGO, C7C, HFP #### [facility] (DEFAULT) [address] [place] [address] 26047 Anion gap [Moles/Vol] 13 mmol/L 7 - 17 mmol/L [facility] Calcium [Mass/Vol] 8.7 mg/dL 8.6 - 10. 5 mg/dL [facility] Chloride [Moles/Vol] 102 mmol/L 98 - 10 8 mmol/L [facility] CO2 [Moles/Vol] 26 mmol/L 21 - 31 mmol/L [facility] Creatinine [Mass/Vol] 0.71 mg/dL 0.50 - 1.20 mg/dL [facility] GFR/1.73 sq M.predicted CKD-EPI (S/P/Bld) [Vol rate/Area] >90 >=60 mL/min/1.73m 2 [facility] Comment on above: Reported eGFR is bas ed on the CKD-EPI 2020 equation using creatinine, age, and sex. Glucose [Mass/Vol] 86 mg/dL 70 - 99 mg/dL [facility] Osmolality Calc [Osmolality] 285 [facility] Potassium [Moles/Vol] 4.1 mmol/L 3.5 - 5.0 mmol/L [facility] Sodium [Moles/Vol] 137 mmol/L 135 - 145 mmol/L [facility] Urea nitrogen [Mass/Vol] 8 mg/dL 7 - 25 mg/dL [facility] Urea nitrogen/Creatinine [Mass ratio] 11 mg/mg [facility] C DIFFICILE BY PCR (CLOSTRID IUM DIFFICILE TOXIN)Ordered By: Evy Rodriguez on 07-02-2022 C. difficile DNA PINKY+probe Ql (Unsp spec) Negative Negative [facility] Interpretation and review of laboratory results Normal [facility] This assay detects Toxigenic C. difficile (Toxin B gene DNA) by PCR. Results should be interpreted in conjunction with clinical findings. [facility] C DIFFICILE BY PCR (CLOSTRID IUM DIFFICILE TOXIN)on 07-02-2022 C Difficile By Pcr Negative Normal Negative [facility] Comment on above: Order Comment: C. di fficile toxin gene testing is clinically indicated if a patient has 3 or more watery, unformed stools in 24hrs. Assess patient for common causes of diarrhea such as antibiotics, laxatives, stool softeners, tube feeding, etc. Collect one sample in a 3-vial para-trinidad kit consisting of a white, orange, and pink vial. Vials must be to fill line. If minimum volume, always fill white vial first. If multiple stool tests are ordered, only one 3-vial kit is required. If one C. Difficile is requested, only the white vial or a sterile container is required. This assay detects Toxigenic C. difficile (Toxin B gene DNA) by PCR. Results should be interpreted in conjunction with clinical findings. Performed By: #### C DIFP #### [facility] (DEFAULT) [address] [address] HEPATIC FUNCTION PANELon Albumin [Mass/Vol] 3.6 g/dL Normal 3.5-5.0 [facility] Comment on above: Performed By: #### I PB MGO, C7C, HFP #### [facility] (DEFAULT) [address] [address] ALP [Catalytic activity/Vol] 56 U/L Normal 32-126 [facility] Comment on above: Performed By: #### I PB MGO, C7C, HFP #### [facility] (DEFAULT) [address] [address] ALT [Catalytic activity/Vol] 34 U/L Normal 9-48 [facility] Comment on above: Performed By: #### I PB, MGO, C7C, HFP #### [facility] (DEFAULT) [address] [address] AST [Catalytic activity/Vol] 10 U/L Normal 10-39 [facility] Comment on above: Performed By: #### I PB, MGO, C7C, HFP #### [facility] (DEFAULT) [address] [address] Bilirubin [Mass/Vol] 0.7 mg/dL Normal <1.5 [facility] Comment on above: Performed By: #### I PB, MGO, C7C, HFP #### [facility] (DEFAULT) [address] [place] [address] 66297 Bilirubin.indirect [Mass/Vol] 0.1 mg/dL Normal <0.3 [facility] Comment on above: Performed By: #### I PB, MGO, C7C, HFP #### [facility] (DEFAULT) [address] [place] [address] Protein [Mass/Vol] 6.6 g/dL Normal 6.4-8.3 [facility] Comment on above: Performed By: #### I PB, MGO, C7C, HFP #### [facility] (DEFAULT) [address] [place] [address] 43375 Albumin [Mass/Vol] 3.6 g/dL 3.5 - 5.0 g/dL [facility] ALP [Catalytic activity/Vol] 56 U/L 32 - 126 U/L [facility] ALT [Catalytic activity/Vol] 34 U/L 9 - 48 U/L [facility] AST [Catalytic activity/Vol] 10 U/L 10 - 39 U/L [facility] Bilirubin [Mass/Vol] 0.7 mg/dL <1.5 [facility] Bilirubin.direct [Mass/Vol] 0.1 mg/dL <0.3 [facility] Protein [Mass/Vol] 6.6 g/dL 6.4 - 8.3 g/dL [facility] MAGNESIUMon 07-02-2022 Magnesium [Mass/Vol] 2.0 mg/dL Normal 1.6-2.6 [facility] Comment on above: Performed By: #### I PB, MGO, C7C, HFP #### [facility] (DEFAULT) [address] [place] [address] 88806 Magnesium [Mass/Vol] 2.0 mg/dL 1.6 - 2 .6 mg/dL [facility] No Panel Informationon 07-02 Interpretation and review of laboratory results Normal [facility] PHOSPHATE, INORGANICon 07-02 Phosphorous 4.8 mg/dL High 2.2-4.6 [facility] Comment on above: Performed By: #### I PB MGBo PlattC, HFP #### [facility] (DEFAULT) [address] [place] [address] Interpretation and review of laboratory results Abnormal [facility] Phosphate [Mass/Vol] 4.8 mg/dL High 2.2 - 4 .6 mg/dL [facility] PLATELET COUNTon 07-02-2022 Platelet mean volume (Bld) [Entitic vol] 10.0 fL Normal 8.5-12.2 [facility] Comment on above: Performed By: #### I PB MGBo PlattC, HFP #### [facility] (DEFAULT) [address] [place] [address] Platelets (Bld) [#/Vol] 313 10*3/uL Normal 150-393 [facility] Comment on above: Performed By: #### I PB, MGBo PlattC, HFP #### [facility] (DEFAULT) [address] [place] [address] Interpretation and review of laboratory results Normal [facility] Platelet mean volume (Bld) [Entitic vol] 10.0 fL 8.5 - 12.2 fL [facility] Platelets (Bld) [#/Vol] 313 10*3/uL 150 - 393 K/uL [facility] URINALYSIS REFLEX TO CULTURE PERFORMABLEon 07-02-2022 Appearance (U) Clear Normal Clear [facility] Comment on above: Order Comment: For i ndwelling catheters, specimen collection is acceptable on catheter day 1 and 2 only. ? Performed By: #### D HES, ANASR, SMA #### [facility] (DEFAULT) [address] [place] [address] Bacteria ABSENT Normal ABSENT [facility] Comment on above: Order Comment: For i ndwelling catheters, specimen collection is acceptable on catheter day 1 and 2 only. ? Performed By: #### D HES, ANASR, SMA #### [facility] (DEFAULT) [address] [place] [address] 16500 Blood Urine Small Abnormal Negative [facility] Comment on above: Order Comment: For i ndwelling catheters, specimen collection is acceptable on catheter day 1 and 2 only. ? Performed By: #### D HES, ANASR, SMA #### [facility] (DEFAULT) [address] [place] [address] 36866 Color (U) Yellow Normal Yellow [facility] Comment on above: Order Comment: For i ndwelling catheters, specimen collection is acceptable on catheter day 1 and 2 only. ? Performed By: #### D HES, ANASR, SMA #### [facility] (DEFAULT) [address] [place] [address] 81320 Glucose Ql (U) Negative Normal Negative [facility] Comment on above: Order Comment: For i ndwelling catheters, specimen collection is acceptable on catheter day 1 and 2 only. ? Performed By: #### D HES, ANASR, SMA #### [facility] (DEFAULT) [address] [place] [address] 80288 Ketones Ql (U) Negative Normal Negative [facility] Comment on above: Order Comment: For i ndwelling catheters, specimen collection is acceptable on catheter day 1 and 2 only. ? Performed By: #### D HES, ANASR, SMA #### [facility] (DEFAULT) [address] [place] [address] 81303 Leukocyte esterase Test strip Ql (U) Negative Normal Negative [facility] Comment on above: Order Comment: For i ndwelling catheters, specimen collection is acceptable on catheter day 1 and 2 only. ? Performed By: #### D HES, ANASR, SMA #### [facility] (DEFAULT) [address] [place] [address] 57883 Nitrites Urine Negative Normal Negative [facility] Comment on above: Order Comment: For i ndwelling catheters, specimen collection is acceptable on catheter day 1 and 2 only. ? Performed By: #### D HES, ANASR, SMA #### [facility] (DEFAULT) [address] [place] [address] 92858 pH (U) 6.5 [pH] Normal 5.0-7.0 [facility] Comment on above: Order Comment: For i ndwelling catheters, specimen collection is acceptable on catheter day 1 and 2 only. ? Performed By: #### D HES, ANASR, SMA #### [facility] (DEFAULT) [address] [place] [address] 41644 Protein Urine Negative Normal Negative [facility] Comment on above: Order Comment: For i ndwelling catheters, specimen collection is acceptable on catheter day 1 and 2 only. ? Performed By: #### D HES, ANASR, SMA #### [facility] (DEFAULT) [address] [place] [address] 25451 RBC Urine 3-5 Abnormal 0-2 [facility] Comment on above: Order Comment: For i ndwelling catheters, specimen collection is acceptable on catheter day 1 and 2 only. ? Performed By: #### D HES, ANASR, SMA #### [facility] (DEFAULT) [address] [place] [address] 33340 Specific [place] Urine 1.010 Normal 1.001-1.035 [facility] Comment on above: Order Comment: For i ndwelling catheters, specimen collection is acceptable on catheter day 1 and 2 only. ? Performed By: #### D HES, ANASR, SMA #### [facility] (DEFAULT) [address] [place] [address] 92822 Squamous/Epithelial Cells 2-5/hpf = 2+ Normal 1/hpf = 1+, 2-5/hpf = 2+, 0/hpf = 0+, ABSENT [facility] Comment on above: Order Comment: For i ndwelling catheters, specimen collection is acceptable on catheter day 1 and 2 only. ? Performed By: #### D HES, ANASR, SMA #### [facility] (DEFAULT) [address] [place] [address] 08941 Urobilinogen Urine 0.2 E.U./dL Normal 0.2 E.U/d L, 1.0 E.U/dL [facility] Comment on above: Order Comment: For i ndwelling catheters, specimen collection is acceptable on catheter day 1 and 2 only. ? Performed By: #### D MEE EAGLE, #### [facility] (DEFAULT) [address] [place] [address] WBC Urine 0-5 Normal 0-5 [facility] Comment on above: Order Comment: For i ndwelling catheters, specimen collection is acceptable on catheter day 1 and 2 only. ? Performed By: #### D MEE EAGLE, #### [facility] (DEFAULT) [address] [place] [address] 18033 URINALYSIS REFLEX TO CULTURE PERFORMABLEOrdered By: Sruthi Fortune on 07-02-2022 Appearance (U) Clear Clear [facility] Bacteria LM Ql (Urine sed) ABSENT ABSENT [facility] Color (U) Yellow Yellow [facility] Epithelial cells.squamous LM Ql (Urine sed) 2-5/hpf = 2+ 1/hpf = 1+, 2-5/hpf = 2+, 0/hpf = 0+, ABSENT [facility] Glucose Test strip (U) [Mass/Vol] Negative Negative [facility] Interpretation and review of laboratory results Abnormal [facility] Ketones (U) [Mass/Vol] Negative Negative [facility] Leukocyte esterase Test strip Ql (U) Negative Negative [facility] Nitrite Ql (U) [facility] pH (U) 6.5 [pH] 5.0 - 7.0 [facility] Protein (U) [Mass/Vol] Negative Negative [facility] RBC (U) [#/Vol] Small [facility] RBC LM.HPF (Urine sed) [#/Area] 3-5 Abnormal 0 - 2 /HPF [facility] Specific gravity (U) [Rel density] 1.010 [facility] Urobilinogen (U) [Mass/Vol] 0.2 E.U./dL 0.2 E.U/dL, 1.0 E.U/dL [facility] WBC LM.HPF (Urine sed) [#/Area] 0-5 0 - 5 /HPF [facility] BASIC METABOLIC PANELon 09-0 Anion gap [Moles/Vol] 11 mmol/L Normal 7-17 [facility] Comment on above: Performed By: #### D MEE EAGLE, SMA #### [facility] (DEFAULT) [address] [place] [address] 60878 Calcium [Mass/Vol] 8.4 mg/dL Low 8.6-10.5 [facility] Comment on above: Performed By: #### D MEE EAGLE, SMA #### [facility] (DEFAULT) [address] [place] [address] 11098 Chloride [Moles/Vol] 102 mmol/L Normal 98-108 [facility] Comment on above: Performed By: #### D MEE EAGLE, SMA #### [facility] (DEFAULT) [address] [place] [address] 18710 CO2 [Moles/Vol] 28 mmol/L Normal 21-31 [place] Comment on above: Performed By: #### D MEE EAGLE, SMA #### [facility] (DEFAULT) [address] [place] [address] 82083 Creatinine [Mass/Vol] 0.64 mg/dL Normal 0.50-1.20 [facility] Comment on above: Performed By: #### D MEE EAGLE, SMA #### [facility] (DEFAULT) [address] [place] [address] 65688 eGFR, CKD-EPI, Female >90 Normal >=60 [facility] Comment on above: Result Comment: Repo rted eGFR is based on the CKD-EPI 2020 equation using creatinine, age, and sex. Performed By: #### D SHAGUFTA ANA, SMA #### [facility] (DEFAULT) [address] [place] [address] 98762 Glucose [Mass/Vol] 118 mg/dL High 70-99 [facility] Comment on above: Performed By: #### D MEE EAGLE, SMA #### [facility] (DEFAULT) [address] [place] [address] 64058 Osmolality [Osmolality] 286 mosm/kg Normal 278-305 [facility] Comment on above: Performed By: #### D MEE EAGLE, SMA #### [facility] (DEFAULT) [address] [place] [address] 42830 Potassium [Moles/Vol] 3.8 mmol/L Normal 3.5-5.0 [facility] Comment on above: Performed By: #### D MEE EAGLE, SMA #### [facility] (DEFAULT) [address] [place] [address] 12722 Sodium [Moles/Vol] 137 mmol/L Normal 135-145 [facility] Comment on above: Performed By: #### D MEE EAGLE, SMA #### [facility] (DEFAULT) [address] [place] [address] 72615 Urea nitrogen [Mass/Vol] 8 mg/dL Normal 7-25 [facility] Comment on above: Performed By: #### MEE REGAN, SMA #### [facility] (DEFAULT) [address] [place] [address] 22088 Urea nitrogen/Creatinine [Mass ratio] 13 mg/mg Normal [facility] Comment on above: Performed By: #### D MEE EAGLE, SMA #### [facility] (DEFAULT) [address] [place] [address] 24240 Anion gap [Moles/Vol] 11 mmol/L 7 - 17 mmol/L [facility] Calcium [Mass/Vol] 8.4 mg/dL Low 8.6 - 10. 5 mg/dL [facility] Chloride [Moles/Vol] 102 mmol/L 98 - 10 8 mmol/L [facility] CO2 [Moles/Vol] 28 mmol/L 21 - 31 mmol/L [facility] Creatinine [Mass/Vol] 0.64 mg/dL 0.50 - 1.20 mg/dL [facility] GFR/1.73 sq M.predicted CKD-EPI (S/P/Bld) [Vol rate/Area] >90 >=60 mL/min/1.73m 2 [facility] Comment on above: Reported eGFR is bas ed on the CKD-EPI 2020 equation using creatinine, age, and sex. Glucose [Mass/Vol] 118 mg/dL High 70 - 99 mg/dL [facility] Osmolality Calc [Osmolality] 286 [facility] Potassium [Moles/Vol] 3.8 mmol/L 3.5 - 5.0 mmol/L [facility] Sodium [Moles/Vol] 137 mmol/L 135 - 145 mmol/L [facility] Urea nitrogen [Mass/Vol] 8 mg/dL 7 - 25 mg/dL [facility] Urea nitrogen/Creatinine [Mass ratio] 13 mg/mg [facility] CBC,PLATELETSon 07-01-2022 Hematocrit (Bld) [Volume fraction] 35.2 % Normal 34.9-44.3 [facility] Comment on above: Performed By: #### I UNIQUE REGALADO C7C, HFP #### [facility] (DEFAULT) [address] [place] [address] Hemoglobin (Bld) [Mass/Vol] 11.5 g/dL Normal 11.4-15.2 [facility] Comment on above: Performed By: #### I UNIQUE REGALADO C7C, HFP #### [facility] (DEFAULT) [address] [place] [address] MCV (RBC) [Entitic vol] 80.4 fL Normal 79.6-97.7 [facility] Comment on above: Performed By: #### I UNIQUE REGALADO C7C, HFP #### [facility] (DEFAULT) [address] [place] [address] Mean Cell Hgb 26.3 pg Normal 25.9-33.9 [facility] Comment on above: Performed By: #### I PB, MGO, C7C, HFP #### [facility] (DEFAULT) [address] [place] [address] 83632 Mean Cell Hgb Conc 32.7 g/dL Normal 31.4-35.9 [facility] Comment on above: Performed By: #### I PB, MGO, C7C, HFP #### [facility] (DEFAULT) [address] [place] [address] 64896 Platelet mean volume (Bld) [Entitic vol] 10.0 fL Normal 8.5-12.2 [facility] Comment on above: Performed By: #### I PB, MGO, C7C, HFP #### [facility] (DEFAULT) [address] [place] [address] 84631 Platelets (Bld) [#/Vol] 284 10*3/uL Normal 150-393 [facility] Comment on above: Performed By: #### I PB, MGO, C7C, HFP #### [facility] (DEFAULT) [address] [place] [address] 99833 RBC (Bld) [#/Vol] 4.38 10*6/uL Normal 3.91-5.04 [facility] Comment on above: Performed By: #### I PB, MGO, C7C, HFP #### [facility] (DEFAULT) [address] [place] [address] 49262 RBC Distribution 15.0 % High 10.8-14.9 [facility] Comment on above: Performed By: #### I PB, MGO, C7C, HFP #### [facility] (DEFAULT) [address] [place] [address] 91265 WBC (Bld) [#/Vol] 12.41 10*3/uL High 3.99-11.19 [facility] Comment on above: Performed By: #### I PB, MGO, C7C, HFP #### [facility] (DEFAULT) [address] [place] [address] Erythrocyte distribution width (RBC) [Ratio] 15.0 % High 10.8 - 14.9 % [facility] Hematocrit (Bld) [Volume fraction] 35.2 % 34.9 - 44.3 % [facility] Hemoglobin (Bld) [Mass/Vol] 11.5 g/dL 11.4 - 15.2 g/dL [facility] Interpretation and review of laboratory results Abnormal [facility] MCH (RBC) [Entitic mass] 26.3 pg 25.9 - 33.9 pg [facility] MCHC (RBC) [Mass/Vol] 32.7 g/dL 31.4 - 35.9 g/dL [facility] MCV (RBC) [Entitic vol] 80.4 fL 79.6 - 97.7 fL [facility] Platelet mean volume (Bld) [Entitic vol] 10.0 fL 8.5 - 12.2 fL [facility] Platelets (Bld) [#/Vol] 284 10*3/uL 150 - 393 K/uL [facility] RBC (Bld) [#/Vol] 4.38 10*6/uL [facility] WBC (Bld) [#/Vol] 12.41 10*3/uL High 3.99 - 11 .19 K/uL [facility] GLUCOSE POCon 07-01-2022 Glucose [Mass/Vol] 114 mg/dL High 70 - 99 mg/dL [facility] Interpretation and review of laboratory results Abnormal [facility] POC Sample Type CAPBL [facility] Test performed at address of the patient encounter. [facility] Glucose [Mass/Vol] 120 mg/dL High 70 - 99 mg/dL [facility] Interpretation and review of laboratory results Abnormal [facility] POC Sample Type CAPBL [facility] Test performed at address of the patient encounter. [facility] Glucose [Mass/Vol] 113 mg/dL High 70 - 99 mg/dL [facility] Interpretation and review of laboratory results Abnormal [facility] POC Sample Type CAPBL [facility] Test performed at address of the patient encounter. [facility] Glucose [Mass/Vol] 122 mg/dL High 70 - 99 mg/dL [facility] Interpretation and review of laboratory results Abnormal [facility] POC Sample Type CAPBL [facility] Test performed at address of the patient encounter. [facility] Glucose [Mass/Vol] 99 mg/dL 70 - 99 mg/dL [facility] POC Sample Type CAPBL [facility] Test performed at address of the patient encounter. [facility] HEPATIC FUNCTION PANELon Albumin [Mass/Vol] 3.5 g/dL Normal 3.5-5.0 [facility] Comment on above: Performed By: #### D HES, ANASR, SMA #### [facility] (DEFAULT) [address] [place] [address] 03203 ALP [Catalytic activity/Vol] 59 U/L Normal 32-126 [facility] Comment on above: Performed By: #### D HES, ANASR, SMA #### [facility] (DEFAULT) [address] [place] [address] 62427 ALT [Catalytic activity/Vol] 44 U/L Normal 9-48 [facility] Comment on above: Performed By: #### D HES, ANASR, SMA #### [facility] (DEFAULT) [address] [place] [address] AST [Catalytic activity/Vol] 12 U/L Normal 10-39 [facility] Comment on above: Performed By: #### D HES, ANASR, SMA #### [facility] (DEFAULT) [address] [place] [address] 25210 Bilirubin [Mass/Vol] 0.6 mg/dL Normal <1.5 [facility] Comment on above: Performed By: #### D MEE EAGLE SMA #### [facility] (DEFAULT) [address] [place] [address] 29481 Bilirubin.indirect [Mass/Vol] 0.1 mg/dL Normal <0.3 [facility] Comment on above: Performed By: #### D MEE EAGLE SMA #### [facility] (DEFAULT) [address] [place] [address] 24494 Protein [Mass/Vol] 6.3 g/dL Low 6.4-8.3 [facility] Comment on above: Performed By: #### D MEE EAGLE SMA #### [facility] (DEFAULT) [address] [place] [address] 54044 Albumin [Mass/Vol] 3.5 g/dL 3.5 - 5.0 g/dL [facility] ALP [Catalytic activity/Vol] 59 U/L 32 - 126 U/L [facility] ALT [Catalytic activity/Vol] 44 U/L 9 - 48 U/L [facility] AST [Catalytic activity/Vol] 12 U/L 10 - 39 U/L [facility] Bilirubin [Mass/Vol] 0.6 mg/dL <1.5 [facility] Bilirubin.direct [Mass/Vol] 0.1 mg/dL <0.3 [facility] Protein [Mass/Vol] 6.3 g/dL Low 6.4 - 8.3 g/dL [facility] MAGNESIUMon 07-01-2022 Magnesium [Mass/Vol] 2.2 mg/dL Normal 1.6-2.6 [facility] Comment on above: Performed By: #### D MEE EAGLE SMA #### [facility] (DEFAULT) [address] [place] [address] 58515 Interpretation and review of laboratory results Normal [facility] Magnesium [Mass/Vol] 2.2 mg/dL 1.6 - 2 .6 mg/dL [facility] No Panel Informationon 07-01 Interpretation and review of laboratory results Abnormal [facility] PHOSPHATE, INORGANICon 07-01 Phosphorous 4.8 mg/dL High 2.2-4.6 [facility] Comment on above: Performed By: #### D SHAGUFTA, ANASR, SMA #### [facility] (DEFAULT) [address] [place] [address] Phosphate [Mass/Vol] 4.8 mg/dL High 2.2 - 4 .6 mg/dL [facility] BASIC METABOLIC PANELon Anion gap [Moles/Vol] 12 mmol/L 7 - 17 mmol/L [facility] Calcium [Mass/Vol] 8.5 mg/dL Low 8.6 - 10. 5 mg/dL [facility] Chloride [Moles/Vol] 101 mmol/L 98 - 10 8 mmol/L [facility] CO2 [Moles/Vol] 32 mmol/L High 21 - 31 mmol/L [facility] Creatinine [Mass/Vol] 0.68 mg/dL 0.50 - 1.20 mg/dL [facility] GFR/1.73 sq M.predicted CKD-EPI (S/P/Bld) [Vol rate/Area] >90 >=60 mL/min/1.73m 2 [facility] Comment on above: Reported eGFR is bas ed on the CKD-EPI 2020 equation using creatinine, age, and sex. Glucose [Mass/Vol] 89 mg/dL 70 - 99 mg/dL [facility] Osmolality Calc [Osmolality] 292 [facility] Potassium [Moles/Vol] 3.8 mmol/L 3.5 - 5.0 mmol/L [facility] Sodium [Moles/Vol] 141 mmol/L 135 - 145 mmol/L [facility] Urea nitrogen [Mass/Vol] 7 mg/dL 7 - 25 mg/dL [facility] Urea nitrogen/Creatinine [Mass ratio] 10 mg/mg [facility] Anion gap [Moles/Vol] 12 mmol/L Normal 7-17 [facility] Comment on above: Performed By: #### I PB, MGO, C7C, HFP #### [facility] (DEFAULT) [address] [place] [address] 57666 Calcium [Mass/Vol] 8.5 mg/dL Low 8.6-10.5 [facility] Comment on above: Performed By: #### I PB, MGO, C7C, HFP #### [facility] (DEFAULT) [address] [place] [address] 00781 Chloride [Moles/Vol] 101 mmol/L Normal 98-108 [facility] Comment on above: Performed By: #### I PB, MGO, C7C, HFP #### [facility] (DEFAULT) [address] [place] [address] 00592 CO2 [Moles/Vol] 32 mmol/L High 21-31 [place] Comment on above: Performed By: #### I PB, MGO, C7C, HFP #### [facility] (DEFAULT) [address] [place] [address] 51128 Creatinine [Mass/Vol] 0.68 mg/dL Normal 0.50-1.20 [facility] Comment on above: Performed By: #### I PB, MGO, C7C, HFP #### [facility] (DEFAULT) [address] [place] [address] 39961 eGFR, CKD-EPI, Female >90 Normal >=60 [facility] Comment on above: Result Comment: Repo rted eGFR is based on the CKD-EPI 1 equation using creatinine, age, and sex. Performed By: #### I PB, MGO, C7C, HFP #### [facility] (DEFAULT) [address] [place] [address] 24731 Glucose [Mass/Vol] 89 mg/dL Normal 70-99 [facility] Comment on above: Performed By: #### I PB, MGO, C7C, HFP #### [facility] (DEFAULT) [address] [place] [address] 39439 Osmolality [Osmolality] 292 mosm/kg Normal 278-305 [facility] Comment on above: Performed By: #### I SABINE MGLc C7C, HFP #### [facility] (DEFAULT) [address] [place] [address] 94538 Potassium [Moles/Vol] 3.8 mmol/L Normal 3.5-5.0 [facility] Comment on above: Performed By: #### [place] REGALADO MGO C7C, HFP #### [facility] (DEFAULT) [address] [place] [address] 05445 Sodium [Moles/Vol] 141 mmol/L Normal 135-145 [facility] Comment on above: Performed By: #### [place] PB, MGO C7C, HFP #### [facility] (DEFAULT) [address] [place] [address] 43909 Urea nitrogen [Mass/Vol] 7 mg/dL Normal 7-25 [facility] Comment on above: Performed By: #### [place] PB, MGO C7C, HFP #### [facility] (DEFAULT) [address] [place] [address] 20092 Urea nitrogen/Creatinine [Mass ratio] 10 mg/mg Normal [facility] Comment on above: Performed By: #### [place] PB, MGO C7C, HFP #### [facility] (DEFAULT) [address] [place] [address] 47899 HEPATIC FUNCTION PANELon Albumin [Mass/Vol] 3.6 g/dL 3.5 - 5.0 g/dL [facility] ALP [Catalytic activity/Vol] 59 U/L 32 - 126 U/L [facility] ALT [Catalytic activity/Vol] 59 U/L High 9 - 48 U/L [facility] AST [Catalytic activity/Vol] 10 U/L 10 - 39 U/L [facility] Bilirubin [Mass/Vol] 0.5 mg/dL <1.5 [facility] Bilirubin.direct [Mass/Vol] 0.1 mg/dL <0.3 [facility] Protein [Mass/Vol] 6.4 g/dL 6.4 - 8.3 g/dL [facility] Albumin [Mass/Vol] 3.6 g/dL Normal 3.5-5.0 [facility] Comment on above: Performed By: #### I PB, MGO, C7C, HFP #### [facility] (DEFAULT) [address] [place] [address] 75537 ALP [Catalytic activity/Vol] 59 U/L Normal 32-126 [facility] Comment on above: Performed By: #### I PB, MGO, C7C, HFP #### [facility] (DEFAULT) [address] [place] [address] 94787 ALT [Catalytic activity/Vol] 59 U/L High 9-48 [facility] Comment on above: Performed By: #### I PB, MGO, C7C, HFP #### [facility] (DEFAULT) [address] [place] [address] 08765 AST [Catalytic activity/Vol] 10 U/L Normal 10-39 [facility] Comment on above: Performed By: #### I PB, MGO, C7C, HFP #### [facility] (DEFAULT) [address] [place] [address] 14495 Bilirubin [Mass/Vol] 0.5 mg/dL Normal <1.5 [facility] Comment on above: Performed By: #### I PB, MGO, C7C, HFP #### [facility] (DEFAULT) [address] [place] [address] 68065 Bilirubin.indirect [Mass/Vol] 0.1 mg/dL Normal <0.3 [facility] Comment on above: Performed By: #### I PB, MGO, C7C, HFP #### [facility] (DEFAULT) [address] [place] [address] 11892 Protein [Mass/Vol] 6.4 g/dL Normal 6.4-8.3 [facility] Comment on above: Performed By: #### I PB, MGO, C7C, HFP #### [facility] (DEFAULT) [address] [place] [address] 17736 MAGNESIUMon 06-30-2022 Magnesium [Mass/Vol] 2.2 mg/dL 1.6 - 2 .6 mg/dL [facility] Magnesium [Mass/Vol] 2.2 mg/dL Normal 1.6-2.6 [facility] Comment on above: Performed By: #### I PB, MGO, C7C, HFP #### [facility] (DEFAULT) [address] [place] [address] 87693 No Panel Informationon 06-30 Interpretation and review of laboratory results Abnormal [facility] Interpretation and review of laboratory results Normal [facility] PHOSPHATE, INORGANICon 06-30 Phosphate [Mass/Vol] 4.1 mg/dL 2.2 - 4 .6 mg/dL [facility] Phosphorous 4.1 mg/dL Normal 2.2-4.6 [facility] Comment on above: Performed By: #### I PB, MGO, C7C, HFP #### [facility] (DEFAULT) [address] [place] [address] 81450 ANTI MITOCHONDRIAL ANTIBODYO rdered By: Stanton Baker on 06-29-2022 Interpretation and review of laboratory results Normal [facility] Mitochondria Ab IF Ql (S) Negative Negative [facility] ANTI SMOOTH MUSCLE ANTIBODYo n 06-29-2022 Interpretation and review of laboratory results Abnormal [facility] Smooth muscle Ab IF (S) [Titer] Positive Abnormal Negative [facility] Smooth muscle Ab IF (S) [Titer] 1:80 Abnormal (none) [facility] BASIC METABOLIC PANELon Anion gap [Moles/Vol] 9 mmol/L Normal 7-17 [facility] Comment on above: Performed By: #### D HES, ANASR, SMA #### [facility] (DEFAULT) [address] [place] [address] 55759 Calcium [Mass/Vol] 7.9 mg/dL Low 8.6-10.5 [facility] Comment on above: Performed By: #### D MEE EAGLE, SMA #### [facility] (DEFAULT) [address] [place] [address] 71885 Chloride [Moles/Vol] 103 mmol/L Normal 98-108 [facility] Comment on above: Performed By: #### D MEE EAGLE, SMA #### [facility] (DEFAULT) [address] [place] [address] 79324 CO2 [Moles/Vol] 30 mmol/L Normal 21-31 [place] Comment on above: Performed By: #### D MEE EAGLE, SMA #### [facility] (DEFAULT) [address] [place] [address] 63090 Creatinine [Mass/Vol] 0.58 mg/dL Normal 0.50-1.20 [facility] Comment on above: Performed By: #### D MEE EAGLE, SMA #### [facility] (DEFAULT) [address] [place] [address] 64288 eGFR, CKD-EPI, Female >90 Normal >=60 [facility] Comment on above: Result Comment: Repo rted eGFR is based on the CKD-EPI 2020 equation using creatinine, age, and sex. Performed By: #### D MEE EAGLE, SMA #### [facility] (DEFAULT) [address] [place] [address] 84272 Glucose [Mass/Vol] 111 mg/dL High 70-99 [facility] Comment on above: Performed By: #### D MEE EAGLE, SMA #### [facility] (DEFAULT) [address] [place] [address] 02724 Osmolality [Osmolality] 286 mosm/kg Normal 278-305 [facility] Comment on above: Performed By: #### D MEE EAGLE, SMA #### [facility] (DEFAULT) [address] [place] [address] Potassium [Moles/Vol] 3.7 mmol/L Normal 3.5-5.0 [facility] Comment on above: Performed By: #### D MEE EAGLE, SMA #### [facility] (DEFAULT) [address] [place] [address] Sodium [Moles/Vol] 138 mmol/L Normal 135-145 [facility] Comment on above: Performed By: #### D MEE EAGLE, SMA #### [facility] (DEFAULT) [address] [place] [address] Urea nitrogen [Mass/Vol] 5 mg/dL Low 7-25 [facility] Comment on above: Performed By: #### D MEE EAGLE, SMA #### [facility] (DEFAULT) [address] [place] [address] 62184 Urea nitrogen/Creatinine [Mass ratio] 9 mg/mg Normal [facility] Comment on above: Performed By: #### D MEE EAGLE, SMA #### [facility] (DEFAULT) [address] [place] [address] 96526 Anion gap [Moles/Vol] 9 mmol/L 7 - 17 mmol/L [facility] Calcium [Mass/Vol] 7.9 mg/dL Low 8.6 - 10. 5 mg/dL [facility] Chloride [Moles/Vol] 103 mmol/L 98 - 10 8 mmol/L [facility] CO2 [Moles/Vol] 30 mmol/L 21 - 31 mmol/L [facility] Creatinine [Mass/Vol] 0.58 mg/dL 0.50 - 1.20 mg/dL [facility] GFR/1.73 sq M.predicted CKD-EPI (S/P/Bld) [Vol rate/Area] >90 >=60 mL/min/1.73m 2 [facility] Comment on above: Reported eGFR is bas ed on the CKD-EPI 2020 equation using creatinine, age, and sex. Glucose [Mass/Vol] 111 mg/dL High 70 - 99 mg/dL [facility] Osmolality Calc [Osmolality] 286 [facility] Potassium [Moles/Vol] 3.7 mmol/L 3.5 - 5.0 mmol/L [facility] Sodium [Moles/Vol] 138 mmol/L 135 - 145 mmol/L [facility] Urea nitrogen [Mass/Vol] 5 mg/dL Low 7 - 25 mg/dL [facility] Urea nitrogen/Creatinine [Mass ratio] 9 mg/mg [facility] CBC,PLATELETSon 06-29-2022 Hematocrit (Bld) [Volume fraction] 33.1 % Low 34.9-44.3 [facility] Comment on above: Performed By: #### D MEE EAGLE, SMA #### [facility] (DEFAULT) [address] [place] [address] 94537 Hemoglobin (Bld) [Mass/Vol] 10.5 g/dL Low 11.4-15.2 [facility] Comment on above: Performed By: #### D MEE EAGLE, SMA #### [facility] (DEFAULT) [address] [place] [address] 68470 MCV (RBC) [Entitic vol] 81.7 fL Normal 79.6-97.7 [facility] Comment on above: Performed By: #### D BOBBY EAGLESR, SMA #### [facility] (DEFAULT) [address] [place] [address] 57393 Mean Cell Hgb 25.9 pg Normal 25.9-33.9 [facility] Comment on above: Performed By: #### D SHAGUFTA ANASR, SMA #### [facility] (DEFAULT) [address] [place] [address] 84508 Mean Cell Hgb Conc 31.7 g/dL Normal 31.4-35.9 [facility] Comment on above: Performed By: #### D HES, ANASR, SMA #### [facility] (DEFAULT) [address] [place] [address] 83586 Platelet mean volume (Bld) [Entitic vol] 10.1 fL Normal 8.5-12.2 [facility] Comment on above: Performed By: #### D MEE EAGLE, SMA #### [facility] (DEFAULT) [address] [place] [address] 86846 Platelets (Bld) [#/Vol] 235 10*3/uL Normal 150-393 [facility] Comment on above: Performed By: #### MEE REGAN, SMA #### [facility] (DEFAULT) [address] [place] [address] 08831 RBC (Bld) [#/Vol] 4.05 10*6/uL Normal 3.91-5.04 [facility] Comment on above: Performed By: #### D MEE EAGLE, #### [facility] (DEFAULT) [address] [place] [address] 22877 RBC Distribution 15.2 % High 10.8-14.9 [facility] Comment on above: Performed By: #### D MEE EAGLE, SMA #### [facility] (DEFAULT) [address] [place] [address] 22067 WBC (Bld) [#/Vol] 10.88 10*3/uL Normal 3.99-11.19 [facility] Comment on above: Performed By: #### MEE REGAN, SMA #### [facility] (DEFAULT) [address] [place] [address] 41393 Erythrocyte distribution width (RBC) [Ratio] 15.2 % High 10.8 - 14.9 % [facility] Hematocrit (Bld) [Volume fraction] 33.1 % Low 34.9 - 44.3 % [facility] Hemoglobin (Bld) [Mass/Vol] 10.5 g/dL Low 11.4 - 15.2 g/dL [facility] Interpretation and review of laboratory results Abnormal [facility] MCH (RBC) [Entitic mass] 25.9 pg 25.9 - 33.9 pg [facility] MCHC (RBC) [Mass/Vol] 31.7 g/dL 31.4 - 35.9 g/dL [facility] MCV (RBC) [Entitic vol] 81.7 fL 79.6 - 97.7 fL [facility] Platelet mean volume (Bld) [Entitic vol] 10.1 fL 8.5 - 12.2 fL [facility] Platelets (Bld) [#/Vol] 235 10*3/uL 150 - 393 K/uL [facility] RBC (Bld) [#/Vol] 4.05 10*6/uL [facility] WBC (Bld) [#/Vol] 10.88 10*3/uL 3.99 - 11 .19 K/uL [facility] GLUCOSE POCon 06-29-2022 Glucose [Mass/Vol] 105 mg/dL High 70 - 99 mg/dL [facility] Interpretation and review of laboratory results Abnormal [facility] POC Sample Type CAPBL [facility] Test performed at address of the patient encounter. [facility] Glucose [Mass/Vol] 95 mg/dL 70 - 99 mg/dL [facility] Glucose [Mass/Vol] 99 mg/dL 70 - 99 mg/dL [facility] HEPATIC FUNCTION PANELon Albumin [Mass/Vol] 3.3 g/dL Low 3.5-5.0 [facility] Comment on above: Performed By: #### D MEE EAGLE SMA #### [facility] (DEFAULT) [address] [place] [address] 58361 ALP [Catalytic activity/Vol] 55 U/L Normal 32-126 [facility] Comment on above: Performed By: #### MEE REGAN SMA #### [facility] (DEFAULT) [address] [place] [address] ALT [Catalytic activity/Vol] 69 U/L High 9-48 [facility] Comment on above: Performed By: #### MEE REGAN SMA #### [facility] (DEFAULT) [address] [place] [address] 09397 AST [Catalytic activity/Vol] 10 U/L Normal 10-39 [facility] Comment on above: Performed By: #### D BOBBY EAGLESR, SMA #### [facility] (DEFAULT) [address] [place] [address] 64686 Bilirubin [Mass/Vol] 0.6 mg/dL Normal <1.5 [facility] Comment on above: Performed By: #### D MEE EAGLE, SMA #### [facility] (DEFAULT) [address] [place] [address] 39530 Bilirubin.indirect [Mass/Vol] 0.1 mg/dL Normal <0.3 [facility] Comment on above: Performed By: #### D MEE EAGLE, SMA #### [facility] (DEFAULT) [address] [place] [address] 23329 Protein [Mass/Vol] 5.7 g/dL Low 6.4-8.3 [facility] Comment on above: Performed By: #### D MEE EAGLE, SMA #### [facility] (DEFAULT) [address] [place] [address] 51039 Albumin [Mass/Vol] 3.3 g/dL Low 3.5 - 5.0 g/dL [facility] ALP [Catalytic activity/Vol] 55 U/L 32 - 126 U/L [facility] ALT [Catalytic activity/Vol] 69 U/L High 9 - 48 U/L [facility] AST [Catalytic activity/Vol] 10 U/L 10 - 39 U/L [facility] Bilirubin [Mass/Vol] 0.6 mg/dL <1.5 [facility] Bilirubin.direct [Mass/Vol] 0.1 mg/dL <0.3 [facility] Protein [Mass/Vol] 5.7 g/dL Low 6.4 - 8.3 g/dL [facility] MAGNESIUMon 06-29-2022 Magnesium [Mass/Vol] 1.9 mg/dL Normal 1.6-2.6 [facility] Comment on above: Performed By: #### D MEE EAGLE SMA #### [facility] (DEFAULT) [address] [place] [address] Magnesium [Mass/Vol] 1.9 mg/dL 1.6 - 2 .6 mg/dL [facility] No Panel Informationon 06-29 POC Sample Type CAPBL [facility] Test performed at address of the patient encounter. [facility] Interpretation and review of laboratory results Abnormal [facility] Interpretation and review of laboratory results Normal [facility] No Panel InformationOrdered By: Stanton Baker on 06-29-2022 [facility] PHOSPHATE, INORGANICon 06-29 Phosphorous 3.2 mg/dL Normal 2.2-4.6 [facility] Comment on above: Performed By: #### D MEE EAGLE SMA #### [facility] (DEFAULT) [address] [place] [address] Phosphate [Mass/Vol] 3.2 mg/dL 2.2 - 4 .6 mg/dL [facility] PROTEIN ELECTROPHORESISOrder ed By: Grady Mcdermott on 06-29-2022 Albumin [Mass/Vol] 3.6 g/dL 3.5 - 5.0 g/dL [facility] Alpha 1 globulin Elph [Mass/Vol] 0.3 g/dL 0.2 - 0.4 g/dL [facility] Alpha 2 globulin Elph [Mass/Vol] 0.7 g/dL 0.5 - 1.0 g/dL [facility] Beta globulin [facility]ph [Mass/Vol] 0.9 g/dL 0.5 - 1.1 g/dL [facility] Gamma globulin Elph [Mass/Vol] 1.2 g/dL 0.6 - 1.5 g/dL [facility] Pathologist interpretation (Unsp spec) [Interp] Grady Mcdermott MD [facility] Protein Fractions [Interp] Normal serum protein electrophoresis pattern. [facility] ACTHOrdered By: Sharon bryson on 06-28-2022 Corticotropin (P) [Mass/Vol] <5.0 Low 9.0 - 50.0 pg/mL [facility] Interpretation and review of laboratory results Abnormal [facility] BOBBY MULTIPLEX SCRN WITH REFL EXon 06-28-2022 Interpretation and review of laboratory results Normal [facility] Nuclear Ab Ql (S) Negative Negative [facility] Comment on above: This test includes t he following antibodies: Centromere, Chromatin, DsDNA, Jo1, Ribosomal P, DIE STAMPING PRESS OPERATOR, ScL70, Sm/DIE STAMPING PRESS OPERATOR, [place], SSA and SSB. A negative screen result means each antibody listed is negative. If positive, the individual antibody results will be reflexed. [facility] BASIC METABOLIC PANELon Anion gap [Moles/Vol] 11 mmol/L Normal 7-17 [facility] Comment on above: Performed By: #### D HES, ANASR, SMA #### [facility] (DEFAULT) [address] [place] [address] 51493 Calcium [Mass/Vol] 8.1 mg/dL Low 8.6-10.5 [facility] Comment on above: Performed By: #### D HES, ANASR, SMA #### [facility] (DEFAULT) [address] [place] [address] Chloride [Moles/Vol] 103 mmol/L Normal 98-108 [facility] Comment on above: Performed By: #### D HES, ANASR, SMA #### [facility] (DEFAULT) [address] [place] [address] 37282 CO2 [Moles/Vol] 28 mmol/L Normal 21-31 [place] Comment on above: Performed By: #### D HES, ANASR, SMA #### [facility] (DEFAULT) [address] [place] [address] 09464 Creatinine [Mass/Vol] 0.65 mg/dL Normal 0.50-1.20 [facility] Comment on above: Performed By: #### D MEE EAGLE, SMA #### [facility] (DEFAULT) [address] [place] [address] 68028 eGFR, CKD-EPI, Female >90 Normal >=60 [facility] Comment on above: Result Comment: Repo rted eGFR is based on the CKD-EPI 2020 equation using creatinine, age, and sex. Performed By: #### D MEE EAGLE, SMA #### [facility] (DEFAULT) [address] [place] [address] 23217 Glucose [Mass/Vol] 154 mg/dL High 70-99 [facility] Comment on above: Performed By: #### D MEE EAGLE, SMA #### [facility] (DEFAULT) [address] [place] [address] 21216 Osmolality [Osmolality] 291 mosm/kg Normal 278-305 [facility] Comment on above: Performed By: #### MEE REGAN, SMA #### [facility] (DEFAULT) [address] [place] [address] 97212 Potassium [Moles/Vol] 3.4 mmol/L Low 3.5-5.0 [facility] Comment on above: Performed By: #### MEE REGAN, SMA #### [facility] (DEFAULT) [address] [place] [address] 77129 Sodium [Moles/Vol] 139 mmol/L Normal 135-145 [facility] Comment on above: Performed By: #### D MEE EAGLE, SMA #### [facility] (DEFAULT) [address] [place] [address] 66596 Urea nitrogen [Mass/Vol] 6 mg/dL Low 7-25 [facility] Comment on above: Performed By: #### D MEE EAGLE, SMA #### [facility] (DEFAULT) [address] [place] [address] 08998 Urea nitrogen/Creatinine [Mass ratio] 9 mg/mg Normal [facility] Comment on above: Performed By: #### D SHAGUFTA, BOBBYSR, SMA #### [facility] (DEFAULT) [address] [place] [address] Anion gap [Moles/Vol] 11 mmol/L 7 - 17 [facility]L [facility] Calcium [Mass/Vol] 8.1 mg/dL Low 8.6 - 10. 5 mg/dL [facility] Chloride [Moles/Vol] 103 mmol/L 98 - 10 8 mmol/L [facility] CO2 [Moles/Vol] 28 mmol/L 21 - 31 mmol/L [facility] Creatinine [Mass/Vol] 0.65 mg/dL 0.50 - 1.20 mg/dL [facility] GFR/1.73 sq M.predicted CKD-EPI (S/P/Bld) [Vol rate/Area] >90 >=60 mL/min/1.73m 2 [facility] Comment on above: Reported eGFR is bas ed on the CKD-EPI 2020 equation using creatinine, age, and sex. Glucose [Mass/Vol] 154 mg/dL High 70 - 99 mg/dL [facility] Osmolality Calc [Osmolality] 291 [facility] Potassium [Moles/Vol] 3.4 mmol/L Low 3.5 - 5.0 mmol/L [facility] Sodium [Moles/Vol] 139 mmol/L 135 - 145 [facility]L [facility] Urea nitrogen [Mass/Vol] 6 mg/dL Low 7 - 25 mg/dL [facility] Urea nitrogen/Creatinine [Mass ratio] 9 mg/mg [facility] Chronic hepatitis differenti ation between hepatitis B and C virus panelOrdered By: Roopa Stevens on 06-28-2022 HBV core IgG+IgM Ql (S) Negative Negative [facility] HBV surface Ab IA Ql (S) Positive [facility]normal [facility] HBV surface Ag Ql (S) Negative Negative [facility] HCV [facility] Ql (S) Negative [facility] Interpretation and review of laboratory results Abnormal [facility] DHEA-SULFATEon 06-28-2022 DHEA-S [Mass/Vol] ug/dL Low 35 - 430 ug/dL [facility] Interpretation and review of laboratory results Abnormal [facility] GLUCOSE POCon 06-28-2022 Glucose [Mass/Vol] 148 mg/dL High 70 - 99 mg/dL [facility] POC Sample Type CAPBL [facility] Test performed at address of the patient encounter. [facility] HEPATIC FUNCTION PANELon Albumin [Mass/Vol] 3.5 g/dL Normal 3.5-5.0 [facility] Comment on above: Performed By: #### D HES, ANASR, SMA #### [facility] (DEFAULT) [address] [place] [address] 68517 ALP [Catalytic activity/Vol] 65 U/L Normal 32-126 [facility] Comment on above: Performed By: #### D HES, ANASR, SMA #### [facility] (DEFAULT) [address] [place] [address] 53835 ALT [Catalytic activity/Vol] 103 U/L High 9-48 [facility] Comment on above: Performed By: #### D HES, ANASR, SMA #### [facility] (DEFAULT) [address] [place] [address] 87356 AST [Catalytic activity/Vol] 10 U/L Normal 10-39 [facility] Comment on above: Performed By: #### D HES, ANASR, SMA #### [facility] (DEFAULT) [address] [place] [address] 99249 Bilirubin [Mass/Vol] 0.6 mg/dL Normal <1.5 [facility] Comment on above: Performed By: #### D HES, ANASR, SMA #### [facility] (DEFAULT) [address] [place] [address] 55947 Bilirubin.indirect [Mass/Vol] 0.1 mg/dL Normal <0.3 [facility] Comment on above: Performed By: #### D MEE EAGLE SMA #### [facility] (DEFAULT) [address] [place] [address] Protein [Mass/Vol] 6.0 g/dL Low 6.4-8.3 [facility] Comment on above: Performed By: #### D MEE EAGLE SMA #### [facility] (DEFAULT) [address] [place] [address] 23856 Albumin [Mass/Vol] 3.5 g/dL 3.5 - 5.0 g/dL [facility] ALP [Catalytic activity/Vol] 65 U/L 32 - 126 U/L [facility] ALT [Catalytic activity/Vol] 103 U/L High 9 - 48 U/L [facility] AST [Catalytic activity/Vol] 10 U/L 10 - 39 U/L [facility] Bilirubin [Mass/Vol] 0.6 mg/dL <1.5 [facility] Bilirubin.direct [Mass/Vol] 0.1 mg/dL <0.3 [facility] Protein [Mass/Vol] 6.0 g/dL Low 6.4 - 8.3 g/dL [facility] HEPATITIS B CORE IGM ABon HBV core IgM Ql (S) Negative Negative [facility] Interpretation and review of laboratory results Normal [facility] MAGNESIUMon 06-28-2022 Magnesium [Mass/Vol] 1.8 mg/dL Normal 1.6-2.6 [facility] Comment on above: Performed By: #### D MEE EAGLE SMA #### [facility] (DEFAULT) [address] [place] [address] 27870 Magnesium [Mass/Vol] 1.8 mg/dL 1.6 - 2 .6 mg/dL [facility] No Panel Informationon 06-28 Interpretation and review of laboratory results Abnormal [facility] Interpretation and review of laboratory results Normal [facility] PHOSPHATE, INORGANICon 06-28 -2021 Phosphorous 3.1 mg/dL Normal 2.2-4.6 [facility] Comment on above: Performed By: #### D HES, ANASR, SMA #### [facility] (DEFAULT) [address] [place] [address] 37077 Phosphate [Mass/Vol] 3.1 mg/dL 2.2 - 4 .6 mg/dL [facility] BASIC METABOLIC PANELon Anion gap [Moles/Vol] 11 mmol/L Normal 7-17 [facility] Comment on above: Performed By: #### I PB, MGO, C7C, HFP #### [facility] (DEFAULT) [address] [place] [address] 40067 Calcium [Mass/Vol] 8.2 mg/dL Low 8.6-10.5 [facility] Comment on above: Performed By: #### I PB, MGO, C7C, HFP #### [facility] (DEFAULT) [address] [place] [address] 97829 Chloride [Moles/Vol] 103 mmol/L Normal 98-108 [facility] Comment on above: Performed By: #### I PB, MGO, C7C, HFP #### [facility] (DEFAULT) [address] [place] [address] 05371 CO2 [Moles/Vol] 27 mmol/L Normal 21-31 [place] Comment on above: Performed By: #### I PB, MGO, C7C, HFP #### [facility] (DEFAULT) [address] [place] [address] 45927 Creatinine [Mass/Vol] 0.67 mg/dL Normal 0.50-1.20 [facility] Comment on above: Performed By: #### I PB, MGO, C7C, HFP #### [facility] (DEFAULT) [address] [place] [address] 38391 eGFR, CKD-EPI, Female >90 Normal >=60 [facility] Comment on above: Result Comment: Repo rted eGFR is based on the CKD-EPI 2020 equation using creatinine, age, and sex. Performed By: #### I PB, MGO, C7C, HFP #### [facility] (DEFAULT) [address] [place] [address] 85738 Glucose [Mass/Vol] 130 mg/dL High 70-99 [facility] Comment on above: Performed By: #### I PB, MGO, C7C, HFP #### [facility] (DEFAULT) [address] [place] [address] 63177 Osmolality [Osmolality] 287 mosm/kg Normal 278-305 [facility] Comment on above: Performed By: #### I PB, MGO, C7C, HFP #### [facility] (DEFAULT) [address] [place] [address] 49165 Potassium [Moles/Vol] 3.1 mmol/L Low 3.5-5.0 [facility] Comment on above: Performed By: #### I PB, MGO, C7C, HFP #### [facility] (DEFAULT) [address] [place] [address] 37565 Sodium [Moles/Vol] 138 mmol/L Normal 135-145 [facility] Comment on above: Performed By: #### I PB, MGO, C7C, HFP #### [facility] (DEFAULT) [address] [place] [address] 85578 Urea nitrogen [Mass/Vol] 6 mg/dL Low 7-25 [facility] Comment on above: Performed By: #### I PB, MGO, C7C, HFP #### [facility] (DEFAULT) [address] [place] [address] 78057 Urea nitrogen/Creatinine [Mass ratio] 9 mg/mg Normal [facility] Comment on above: Performed By: #### I PB, MGO, C7C, HFP #### [facility] (DEFAULT) [address] [place] [address] Anion gap [Moles/Vol] 11 mmol/L 7 - 17 mmol/L [facility] Calcium [Mass/Vol] 8.2 mg/dL Low 8.6 - 10. 5 mg/dL [facility] Chloride [Moles/Vol] 103 mmol/L 98 - 10 8 mmol/L [facility] CO2 [Moles/Vol] 27 mmol/L 21 - 31 mmol/L [facility] Creatinine [Mass/Vol] 0.67 mg/dL 0.50 - 1.20 mg/dL [facility] GFR/1.73 sq M.predicted CKD-EPI (S/P/Bld) [Vol rate/Area] >90 >=60 mL/min/1.73m 2 [facility] Comment on above: Reported eGFR is bas ed on the CKD-EPI 2020 equation using creatinine, age, and sex. Glucose [Mass/Vol] 130 mg/dL High 70 - 99 mg/dL [facility] Interpretation and review of laboratory results Abnormal [facility] Osmolality Calc [Osmolality] 287 [facility] Potassium [Moles/Vol] 3.1 mmol/L Low 3.5 - 5.0 mmol/L [facility] Sodium [Moles/Vol] 138 mmol/L 135 - 145 mmol/L [facility] Urea nitrogen [Mass/Vol] 6 mg/dL Low 7 - 25 mg/dL [facility] Urea nitrogen/Creatinine [Mass ratio] 9 mg/mg [facility] CBC,PLATELETSon 06-27-2022 Hematocrit (Bld) [Volume fraction] 36.0 % Normal 34.9-44.3 [facility] Comment on above: Performed By: #### H [facility] #### [facility] (DEFAULT) [address] [place] [address] Hemoglobin (Bld) [Mass/Vol] 11.9 g/dL Normal 11.4-15.2 [facility] Comment on above: Performed By: #### H [facility] #### [facility] (DEFAULT) [address] [place] [address] 45060 MCV (RBC) [Entitic vol] 80.5 fL Normal 79.6-97.7 [facility] Comment on above: Performed By: #### H EMOGC #### [facility] (DEFAULT) [address] [place] [address] 57107 Mean Cell Hgb 26.6 pg Normal 25.9-33.9 [facility] Comment on above: Performed By: #### H EMOGC #### [facility] (DEFAULT) [address] [place] [address] 50036 Mean Cell Hgb Conc 33.1 g/dL Normal 31.4-35.9 [facility] Comment on above: Performed By: #### H EMOGC #### [facility] (DEFAULT) [address] [place] [address] 87438 Platelet mean volume (Bld) [Entitic vol] 10.3 fL Normal 8.5-12.2 [facility] Comment on above: Performed By: #### H EMOGC #### [facility] (DEFAULT) [address] [place] [address] 06163 Platelets (Bld) [#/Vol] 286 10*3/uL Normal 150-393 [facility] Comment on above: Performed By: #### H EMOGC #### [facility] (DEFAULT) [address] [place] [address] 94370 RBC (Bld) [#/Vol] 4.47 10*6/uL Normal 3.91-5.04 [facility] Comment on above: Performed By: #### H EMOGC #### [facility] (DEFAULT) [address] [place] [address] 73761 RBC Distribution 14.6 % Normal 10.8-14.9 [facility] Comment on above: Performed By: #### H EMOGC #### [facility] (DEFAULT) [address] [place] [address] 56539 WBC (Bld) [#/Vol] 12.61 10*3/uL High 3.99-11.19 [facility] Comment on above: Performed By: #### H [facility] #### [facility] (DEFAULT) [address] [place] [address] Erythrocyte distribution width (RBC) [Ratio] 14.6 % 10.8 - 14.9 % [facility] Hematocrit (Bld) [Volume fraction] 36.0 % 34.9 - 44.3 % [facility] Hemoglobin (Bld) [Mass/Vol] 11.9 g/dL 11.4 - 15.2 g/dL [facility] Interpretation and review of laboratory results Abnormal [facility] MCH (RBC) [Entitic mass] 26.6 pg 25.9 - 33.9 pg [facility] MCHC (RBC) [Mass/Vol] 33.1 g/dL 31.4 - 35.9 g/dL [facility] MCV (RBC) [Entitic vol] 80.5 fL 79.6 - 97.7 fL [facility] Platelet mean volume (Bld) [Entitic vol] 10.3 fL 8.5 - 12.2 fL [facility] Platelets (Bld) [#/Vol] 286 10*3/uL 150 - 393 K/uL [facility] RBC (Bld) [#/Vol] 4.47 10*6/uL [facility] WBC (Bld) [#/Vol] 12.61 10*3/uL High 3.99 - 11 .19 K/uL [facility] HEPATIC FUNCTION PANELon Albumin [Mass/Vol] 3.6 g/dL 3.5 - 5.0 g/dL [facility] ALP [Catalytic activity/Vol] 77 U/L 32 - 126 U/L [facility] ALT [Catalytic activity/Vol] 164 U/L High 9 - 48 U/L [facility] AST [Catalytic activity/Vol] 19 U/L 10 - 39 U/L [facility] Bilirubin [Mass/Vol] 0.8 mg/dL <1.5 [facility] Bilirubin.direct [Mass/Vol] 0.2 mg/dL <0.3 [facility] Interpretation and review of laboratory results Abnormal [facility] Protein [Mass/Vol] 6.3 g/dL Low 6.4 - 8.3 g/dL [facility] Albumin [Mass/Vol] 3.6 g/dL Normal 3.5-5.0 [facility] Comment on above: Performed By: #### I PB, MGO, C7C, HFP #### [facility] (DEFAULT) [address] [place] [address] 41501 ALP [Catalytic activity/Vol] 77 U/L Normal 32-126 [facility] Comment on above: Performed By: #### I PB, MGO, C7C, HFP #### [facility] (DEFAULT) [address] [place] [address] 20642 ALT [Catalytic activity/Vol] 164 U/L High 9-48 [facility] Comment on above: Performed By: #### I PB, MGO, C7C, HFP #### [facility] (DEFAULT) [address] [place] [address] 47484 AST [Catalytic activity/Vol] 19 U/L Normal 10-39 [facility] Comment on above: Performed By: #### I PB, MGO, C7C, HFP #### [facility] (DEFAULT) [address] [place] [address] 32900 Bilirubin [Mass/Vol] 0.8 mg/dL Normal <1.5 [facility] Comment on above: Performed By: #### I PB, MGO, C7C, HFP #### [facility] (DEFAULT) [address] [place] [address] 67506 Bilirubin.indirect [Mass/Vol] 0.2 mg/dL Normal <0.3 [facility] Comment on above: Performed By: #### I PB, MGO, C7C, HFP #### [facility] (DEFAULT) [address] [place] [address] 96375 Protein [Mass/Vol] 6.3 g/dL Low 6.4-8.3 [facility] Comment on above: Performed By: #### I PB, MGO, C7C, HFP #### [facility] (DEFAULT) [address] [place] [address] 37449 MAGNESIUMon 06-27-2022 Magnesium [Mass/Vol] 1.8 mg/dL Normal 1.6-2.6 [facility] Comment on above: Performed By: #### I PB, MGO, C7C, HFP #### [facility] (DEFAULT) [address] [place] [address] 74354 Magnesium [Mass/Vol] 1.8 mg/dL 1.6 - 2 .6 mg/dL [facility] No Panel Informationon 06-27 Interpretation and review of laboratory results Normal [facility] PHOSPHATE, INORGANICon 06-27 Phosphorous 3.1 mg/dL Normal 2.2-4.6 [facility] Comment on above: Performed By: #### I PB, MGO, C7C, HFP #### [facility] (DEFAULT) [address] [place] [address] 03333 Phosphate [Mass/Vol] 3.1 mg/dL 2.2 - 4 .6 mg/dL [facility] BASIC METABOLIC PANELon Anion gap [Moles/Vol] 13 mmol/L Normal 7-17 [facility] Comment on above: Performed By: #### I PB, MGO, C7C, HFP #### [facility] (DEFAULT) [address] [place] [address] 65743 Calcium [Mass/Vol] 8.3 mg/dL Low Male: 8.6-10.5, Female: 8.6-10.5 [facility] Comment on above: Performed By: #### I PB, MGO, C7C, HFP #### [facility] (DEFAULT) [address] [place] [address] 63567 Chloride [Moles/Vol] 103 mmol/L Normal 98-108 [facility] Comment on above: Performed By: #### I PB, MGO, C7C, HFP #### [facility] (DEFAULT) [address] [place] [address] 77822 CO2 [Moles/Vol] 25 mmol/L Normal 21-31 [place] Comment on above: Performed By: #### I PB, MGO, C7C, HFP #### [facility] (DEFAULT) [address] [place] [address] 77928 Creatinine [Mass/Vol] 0.77 mg/dL Normal Male: 0.7-1.3, Female: 0.5-1.2 [facility] Comment on above: Performed By: #### I PB, MGO, C7C, HFP #### [facility] (DEFAULT) [address] [place] [address] 45751 eGFR, CKD-EPI, Female >90 Normal >=60 [facility] Comment on above: Result Comment: Repo rted eGFR is based on the CKD-EPI 2021 equation using creatinine, age, and sex. Performed By: #### I PB, MGO, C7C, HFP #### [facility] (DEFAULT) [address] [place] [address] 64437 eGFR, CKD-EPI, Male >90 Normal >=60 [facility] Comment on above: Result Comment: Repo rted eGFR is based on the CKD-EPI 2021 equation using creatinine, age, and sex. Performed By: #### I PB, MGO, C7C, HFP #### [facility] (DEFAULT) [address] [place] [address] 99372 Glucose [Mass/Vol] 117 mg/dL High 70-99 [facility] Comment on above: Performed By: #### I PB, MGO, C7C, HFP #### [facility] (DEFAULT) [address] [place] [address] 63662 Osmolality [Osmolality] 288 mosm/kg Normal 278-305 [facility] Comment on above: Performed By: #### I SABINE MGLc C7C, HFP #### [facility] (DEFAULT) [address] [place] [address] 42836 Potassium [Moles/Vol] 3.4 mmol/L Low 3.5-5.0 [facility] Comment on above: Performed By: #### [place] REGALADO MGO C7C, HFP #### [facility] (DEFAULT) [address] [place] [address] 23819 Sodium [Moles/Vol] 138 mmol/L Normal 135-145 [facility] Comment on above: Performed By: #### [place] PB, MGO C7C, HFP #### [facility] (DEFAULT) [address] [place] [address] 37537 Urea nitrogen [Mass/Vol] 10 mg/dL Normal 7-25 [facility] Comment on above: Performed By: #### [place] PB, MGO C7C, HFP #### [facility] (DEFAULT) [address] [place] [address] 44225 Urea nitrogen/Creatinine [Mass ratio] 13 mg/mg Normal [facility] Comment on above: Performed By: #### [place] PB, MGO C7C, HFP #### [facility] (DEFAULT) [address] [place] [address] 87659 Anion gap [Moles/Vol] 13 mmol/L 7 - 17 mmol/L [facility] Calcium [Mass/Vol] 8.3 mg/dL Low Male: 8.6-10.5, Female: 8.6-10.5 [facility] Chloride [Moles/Vol] 103 mmol/L 98 - 10 8 mmol/L [facility] CO2 [Moles/Vol] 25 mmol/L 21 - 31 mmol/L [facility] Creatinine [Mass/Vol] 0.77 mg/dL Male: 0.7-1.3, Female: 0.5-1.2 [facility] Glucose [Mass/Vol] 117 mg/dL High 70 - 99 mg/dL [facility] Osmolality Calc [Osmolality] 288 [facility] Potassium [Moles/Vol] 3.4 mmol/L Low 3.5 - 5.0 mmol/L [facility] Sodium [Moles/Vol] 138 mmol/L 135 - 145 mmol/L [facility] Urea nitrogen [Mass/Vol] 10 mg/dL 7 - 25 mg/dL [facility] Urea nitrogen/Creatinine [Mass ratio] 13 mg/mg [facility] CBC AND ELECTRONIC DIFFon Basophils (Bld) [#/Vol] 10*3/uL Normal Male : 0.00-0.09, Female: 0.00-0.15 [facility] Comment on above: Performed By: #### I PB, MGO, C7C, HFP #### [facility] (DEFAULT) [address] [place] [address] 53148 Basophils/100 WBC (Bld) 0.2 % Normal [facility] Comment on above: Performed By: #### I PB, MGO, C7C, HFP #### [facility] (DEFAULT) [address] [place] [address] 67896 DIFF STATUS Electronic Differential Normal [facility] Comment on above: Performed By: #### I PB, MGO, C7C, HFP #### [facility] (DEFAULT) [address] [place] [address] 47848 Eosinophils (Bld) [#/Vol] 10*3/uL Normal Male: 0.00-0.48, Female: 0.00-0.42 [facility] Comment on above: Performed By: #### I PB, MGO, C7C, HFP #### [facility] (DEFAULT) [address] [place] [address] 64891 Eosinophils/100 WBC (Bld) 0.0 % Normal [facility] Comment on above: Performed By: #### I PB, MGO, C7C, HFP #### [facility] (DEFAULT) [address] [place] [address] 68712 Hematocrit (Bld) [Volume fraction] 36.0 % Low Male: 39.6-48.8, Female: 34.9-44.3 [facility] Comment on above: Performed By: #### I PB, MGO, C7C, HFP #### [facility] (DEFAULT) [address] [place] [address] 03401 Hemoglobin (Bld) [Mass/Vol] 11.8 g/dL Normal Male: 13.4-16.8, Female: 11.4-15.2 [facility] Comment on above: Performed By: #### I PB, MGO, C7C, HFP #### [facility] (DEFAULT) [address] [place] [address] 41098 Immature Grans % 0.4 % Normal [facility] Comment on above: Performed By: #### [place] PB, MGO, C7C, HFP #### [facility] (DEFAULT) [address] [place] [address] 62626 Immature Grans Absolute 0.04 K/uL Normal Male : <=0.07, Female: <=0.08 [facility] Comment on above: Performed By: #### I PB, MGO, C7C, HFP #### [facility] (DEFAULT) [address] [place] [address] 80954 Lymphocytes (Bld) [#/Vol] 1.90 10*3/uL Normal Male: 0.83-3.57, Female: 1.16-3.51 [facility] Comment on above: Performed By: #### I PB, MGO, C7C, HFP #### [facility] (DEFAULT) [address] [place] [address] 48001 Lymphocytes/100 WBC (Bld) 20.2 % Normal [facility] Comment on above: Performed By: #### I PB, MGO, C7C, HFP #### [facility] (DEFAULT) [address] [place] [address] 34649 MCV (RBC) [Entitic vol] 80.4 fL Normal Male : 79.0-94.5, Female: 79.6-97.7 [facility] Comment on above: Performed By: #### I PB, MGO, C7C, HFP #### [facility] (DEFAULT) [address] [place] [address] 85948 Mean Cell Hgb 26.3 pg Normal Male: 26.1-33.3, Female: 25.9-33.9 [facility] Comment on above: Performed By: #### I PB, MGO, C7C, HFP #### [facility] (DEFAULT) [address] [place] [address] 00997 Mean Cell Hgb Conc 32.8 g/dL Normal Male: 31.9-36.5, Female: 31.4-35.9 [facility] Comment on above: Performed By: #### [place] PB, MGO, C7C, HFP #### [facility] (DEFAULT) [address] [place] [address] 99970 Monocytes (Bld) [#/Vol] 0.81 10*3/uL Normal Male : 0.24-0.93 Female: 0.22-0.87 [facility] Comment on above: Performed By: #### I PB, MGO, C7C, HFP #### [facility] (DEFAULT) [address] [place] [address] 93006 Monocytes/100 WBC (Bld) 8.6 % Normal [facility] Comment on above: Performed By: #### I PB, MGO, C7C, HFP #### [facility] (DEFAULT) [address] [place] [address] 08804 Nucleated RBC 0.0 /100 WBC Normal <=0.2 [place] Comment on above: Performed By: #### I PB, MGO, C7C, HFP #### [facility] (DEFAULT) [address] [place] [address] 15334 Platelet mean volume (Bld) [Entitic vol] 10.5 fL Normal Male: 8.7-12.3, Female: 8.5-12.2 [facility] Comment on above: Performed By: #### I PB, MGO, C7C, HFP #### [facility] (DEFAULT) [address] [place] [address] 13940 Platelets (Bld) [#/Vol] 292 10*3/uL Normal Male : 146-337, Female: 150-393 [facility] Comment on above: Performed By: #### I PB, MGO, C7C, HFP #### [facility] (DEFAULT) [address] [place] [address] 89393 RBC (Bld) [#/Vol] 4.48 10*6/uL Normal Male: 4.38-5.83, Female: 3.91-5.04 [facility] Comment on above: Performed By: #### I PB, MGO, C7C, HFP #### [facility] (DEFAULT) [address] [place] [address] 38479 RBC Distribution 14.6 % High Male: 10.9-14.9, Female: 10.8-14.9 [facility] Comment on above: Performed By: #### I PB, MGO, C7C, HFP #### [facility] (DEFAULT) [address] [place] [address] 91878 Segs + Bands Auto 70.6 % Normal [facility] Comment on above: Performed By: #### I PB, MGO, C7C, HFP #### [facility] (DEFAULT) [address] [place] [address] 49597 Segs + Bands,Absolute Auto 6.62 K/uL High Male: 1.57-6.19, Female: 1.64-7.28 [facility] Comment on above: Performed By: #### I PB, MGO, C7C, HFP #### [facility] (DEFAULT) [address] [place] [address] 48459 WBC (Bld) [#/Vol] 9.39 10*3/uL Normal Male: 3.73-10.10, Female: 3.99-11.19 [facility] Comment on above: Performed By: #### I PB, MGO, C7C, HFP #### [facility] (DEFAULT) [address] [place] [address] Basophils (Bld) [#/Vol] 10*3/uL Male : 0.00-0.09, Female: 0.00-0.15 K/uL [facility] Basophils/100 WBC (Bld) 0.2 % [facility] Differential cell count method Nom (Bld) Electronic Differential [facility] Eosinophils (Bld) [#/Vol] 10*3/uL Male: 0.00-0.48, Female: 0.00-0.42 K/uL [facility] Eosinophils/100 WBC (Bld) 0.0 % [facility] Erythrocyte distribution width (RBC) [Ratio] 14.6 % High Male: 10.9-14.9, Female: 10.8-14.9 [facility] Hematocrit (Bld) [Volume fraction] 36.0 % Low Male: 39.6-48.8, Female: 34.9-44.3 [facility] Hemoglobin (Bld) [Mass/Vol] 11.8 g/dL Male: 13.4-16.8, Female: 11.4-15.2 [facility] Immature granulocytes (Bld) [#/Vol] 0.04 10*3/uL Male: <=0.07, Female: <=0.08 [facility] Immature granulocytes/100 WBC (Bld) 0.4 % [facility] Interpretation and review of laboratory results Abnormal [facility] Lymphocytes (Bld) [#/Vol] 1.90 10*3/uL Male: 0.83-3.57, Female: 1.16-3.51 [facility] Lymphocytes/100 WBC (Bld) 20.2 % [facility] MCH (RBC) [Entitic mass] 26.3 pg Male: 26.1-33.3, Female: 25.9-33.9 [facility] MCHC (RBC) [Mass/Vol] 32.8 g/dL Male: 31.9-36.5, Female: 31.4-35.9 [facility] MCV (RBC) [Entitic vol] 80.4 fL Male : 79.0-94.5, Female: 79.6-97.7 [facility] Monocytes (Bld) [#/Vol] 0.81 10*3/uL Male : 0.24-0.93 Female: 0.22-0.87 [facility] Monocytes/100 WBC (Bld) 8.6 % [facility] Neutrophils (Bld) [#/Vol] 6.62 10*3/uL High Male: 1.57-6.19, Female: 1.64-7.28 [facility] Nucleated RBC/100 WBC (Bld) [Ratio] 0.0 % <=0.2 /100 WBC [facility] Platelet mean volume (Bld) [Entitic vol] 10.5 fL Male: 8.7-12.3, Female: 8.5-12.2 [facility] Platelets (Bld) [#/Vol] 292 10*3/uL Male : 146-337, Female: 150-393 [facility] RBC (Bld) [#/Vol] 4.48 10*6/uL Male: 4.38-5.83, Female: 3.91-5.04 M/uL [facility] Segmented neutrophils/100 WBC (Bld) 70.6 % [facility] WBC (Bld) [#/Vol] 9.39 10*3/uL Male: 3.73-10.10, Female: 3.99-11.19 [facility] CKon 06-26-2022 CK [Catalytic activity/Vol] 27 U/L Low Male: 30-220, Female: 30-184 [facility] Comment on above: Performed By: #### I PB, MGO, C7C, HFP #### [facility] (DEFAULT) [address] [place] [address] 45750 CK [Catalytic activity/Vol] 27 U/L Low Male: 30-220, Female: 30-184 [facility] EXTRA MICROon 06-26-2022 [facility] HEPATIC FUNCTION PANELon Albumin [Mass/Vol] 3.8 g/dL Normal Male: 3.5-5.0, Female: 3.5-5.0 [facility] Comment on above: Performed By: #### I PB, MGO, C7C, HFP #### [facility] (DEFAULT) [address] [place] [address] 43702 ALP [Catalytic activity/Vol] 85 U/L Normal Male: 32-126, Female: 32-126 [facility] Comment on above: Performed By: #### I PB, MGO, C7C, HFP #### [facility] (DEFAULT) [address] [place] [address] 30284 ALT [Catalytic activity/Vol] 240 U/L High Male: 10-52, Female: 9-48 [facility] Comment on above: Performed By: #### I PB, MGO, C7C, HFP #### [facility] (DEFAULT) [address] [place] [address] 10772 AST [Catalytic activity/Vol] 31 U/L Normal Male: 10-39, Female: 10-39 [facility] Comment on above: Performed By: #### I PB, MGO, C7C, HFP #### [facility] (DEFAULT) [address] [place] [address] 06559 Bilirubin [Mass/Vol] 0.8 mg/dL Normal <1.5 [facility] Comment on above: Performed By: #### I PB, MGO, C7C, HFP #### [facility] (DEFAULT) [address] [place] [address] 82480 Bilirubin.indirect [Mass/Vol] 0.2 mg/dL Normal <0.3 [facility] Comment on above: Performed By: #### I PB, MGO, C7C, HFP #### [facility] (DEFAULT) [address] [place] [address] 04465 Protein [Mass/Vol] 6.6 g/dL Normal Male: 6.4-8.3, Female: 6.4-8.3 [facility] Comment on above: Performed By: #### I SABINE, MGO, C7C, HFP #### [facility] (DEFAULT) [address] [place] [address] 33311 Albumin [Mass/Vol] 3.8 g/dL Male: 3.5-5.0, Female: 3.5-5.0 [facility] ALP [Catalytic activity/Vol] 85 U/L Male: 32-126, Female: 32-126 [facility] ALT [Catalytic activity/Vol] 240 U/L High Male: 10-52, Female: 9-48 [facility] AST [Catalytic activity/Vol] 31 U/L Male: 10-39, Female: 10-39 [facility] Bilirubin [Mass/Vol] 0.8 mg/dL <1.5 [facility] Bilirubin.direct [Mass/Vol] 0.2 mg/dL <0.3 [facility] Protein [Mass/Vol] 6.6 g/dL Male: 6.4-8.3, Female: 6.4-8.3 [facility] LACTATE DEHYDROGENASEon LD Total 138 U/L Normal Male: 100-190, Female: 100-190 [facility] Comment on above: Performed By: #### I PB, MGO, C7C, HFP #### [facility] (DEFAULT) [address] [place] [address] 63791 Interpretation and review of laboratory results Normal [facility] LDH Lactate to pyruvate reaction [Catalytic activity/Vol] 138 U/L Male: 100-190, Female: 100-190 [facility] Laboratory - Chemistry and C hemistry - challengeon 06-26-2022 GFR/1.73 sq M.predicted CKD-EPI (S/P/Bld) [Vol rate/Area] >90 >=60 mL/min/1.73m 2 [facility] Comment on above: Reported eGFR is bas ed on the CKD-EPI 2020 equation using creatinine, age, and sex. No Panel Informationon 06-26 Interpretation and review of laboratory results Abnormal [facility] PROTIME-INRon 06-26-2022 INR Coag (PPP) [Relative time] 1.2 {INR} High 0.9-1.1 [facility] Comment on above: Performed By: #### D HES, ANASR, SMA #### [facility] (DEFAULT) [address] [place] [address] 54867 PT Coag (PPP) [Time] 15.1 s High 11.9-14.2 [facility] Comment on above: Performed By: #### D HES, ANASR, SMA #### [facility] (DEFAULT) [address] [place] [address] 85242 INR Coag (Bld) [Relative time] 1.2 {INR} High [facility] Interpretation and review of laboratory results Abnormal [facility] PT Coag (PPP) [Time] 15.1 s High [facility] ACTHon 06-25-2022 ACTH <5.0 Low 9.0-50.0 [facility] Comment on above: Performed By: #### A CT #### [facility] (DEFAULT) [address] [place] [address] 33784 BOBBY MULTIPLEX SCRN WITH REFL EXon 06-25-2022 BOBBY Screen, Multiplex Negative Normal Negative [facility] Comment on above: Result Comment: This test includes the following antibodies: Centromere, Chromatin, DsDNA, Jo1, Ribosomal P, DIE STAMPING PRESS OPERATOR, ScL70, Sm/DIE STAMPING PRESS OPERATOR, [place], SSA and SSB. A negative screen result means each antibody listed is negative. If positive, the individual antibody results will be reflexed. Performed By: #### D HES, ANASR, SMA #### [facility] (DEFAULT) [address] [place] [address] 59601 ANTI MITOCHONDRIAL ANTIBODYo n 06-25-2022 Anti-Mitochondrial Antibody Negative Normal Negative [facility] Comment on above: Performed By: #### D HES, ANASR, SMA #### [facility] (DEFAULT) [address] [place] [address] 35284 ANTI SMOOTH MUSCLE ANTIBODYo n 06-25-2022 Smooth Muscle Antibody Positive Abnormal Negative [facility] Comment on above: Performed By: #### D HES, ANASR, SMA #### [facility] (DEFAULT) [address] [place] [address] 83253 Smooth Muscle Antibody, Quant 1:80 Abnormal (none) [facility] Comment on above: Performed By: #### D HES, ANASR, SMA #### [facility] (DEFAULT) [address] [place] [address] 51010 CALCIUMon 06-25-2022 Calcium [Mass/Vol] 9.0 mg/dL Normal Male: 8.6-10.5, Female: 8.6-10.5 [facility] Comment on above: Performed By: #### I PB, MGO, C7C, HFP #### [facility] (DEFAULT) [address] [place] [address] 89388 Calcium [Mass/Vol] 9.0 mg/dL Male: 8.6-10.5, Female: 8.6-10.5 [facility] CBC AND ELECTRONIC DIFFon Basophils (Bld) [#/Vol] 0.04 10*3/uL Normal Male : 0.00-0.09, Female: 0.00-0.15 [facility] Comment on above: Performed By: #### D HES, ANASR, SMA #### [facility] (DEFAULT) [address] [place] [address] 28420 Basophils/100 WBC (Bld) 0.4 % Normal [facility] Comment on above: Performed By: #### D HES, ANASR, SMA #### [facility] (DEFAULT) [address] [place] [address] 72989 DIFF STATUS Electronic Differential Normal [facility] Comment on above: Performed By: #### MEE REGAN, SMA #### [facility] (DEFAULT) [address] [address] Eosinophils (Bld) [#/Vol] 10*3/uL Normal Male: 0.00-0.48, Female: 0.00-0.42 [facility] Comment on above: Performed By: #### MEE REGAN, SMA #### [facility] (DEFAULT) [address] [place] [address] 81980 Eosinophils/100 WBC (Bld) 0.0 % Normal [facility] Comment on above: Performed By: #### MEE REGAN, SMA #### [facility] (DEFAULT) [address] [address] Hematocrit (Bld) [Volume fraction] 37.5 % Low Male: 39.6-48.8, Female: 34.9-44.3 [facility] Comment on above: Performed By: #### MEE REGAN, SMA #### [facility] (DEFAULT) [address] [address] Hemoglobin (Bld) [Mass/Vol] 12.1 g/dL Normal Male: 13.4-16.8, Female: 11.4-15.2 [facility] Comment on above: Performed By: #### MEE REGAN, SMA #### [facility] (DEFAULT) [address] [address] Immature Grans % 0.5 % Normal [facility] Comment on above: Performed By: #### MEE REGAN, SMA #### [facility] (DEFAULT) [address] [address]60 Immature Grans Absolute 0.06 K/uL Normal Male : <=0.07, Female: <=0.08 [facility] Comment on above: Performed By: #### MEE REGAN, SMA #### [facility] (DEFAULT) [address] [place] [address] 08653 Lymphocytes (Bld) [#/Vol] 3.60 10*3/uL High Male: 0.83-3.57, Female: 1.16-3.51 [facility] Comment on above: Performed By: #### D HES, ANASR, SMA #### [facility] (DEFAULT) [address] [place] [address] 76939 Lymphocytes/100 WBC (Bld) 32.5 % Normal [facility] Comment on above: Performed By: #### D HES, ANASR, SMA #### [facility] (DEFAULT) [address] [address] MCV (RBC) [Entitic vol] 81.0 fL Normal Male : 79.0-94.5, Female: 79.6-97.7 [facility] Comment on above: Performed By: #### D HES, ANASR, SMA #### [facility] (DEFAULT) [address] [address] Mean Cell Hgb 26.1 pg Normal Male: 26.1-33.3, Female: 25.9-33.9 [facility] Comment on above: Performed By: #### D HES, ANASR, SMA #### [facility] (DEFAULT) [address] [address] Mean Cell Hgb Conc 32.3 g/dL Normal Male: 31.9-36.5, Female: 31.4-35.9 [facility] Comment on above: Performed By: #### D HES, ANASR, SMA #### [facility] (DEFAULT) [address] [address] Monocytes (Bld) [#/Vol] 0.84 10*3/uL Normal Male : 0.24-0.93 Female: 0.22-0.87 [facility] Comment on above: Performed By: #### D HES, ANASR, SMA #### [facility] (DEFAULT) [address] [place] [address] 72216 Monocytes/100 WBC (Bld) 7.6 % Normal [facility] Comment on above: Performed By: #### D MEE EAGLE, SMA #### [facility] (DEFAULT) [address] [place] [address] 69872 Nucleated RBC 0.0 /100 WBC Normal <=0.2 [place] Comment on above: Performed By: #### MEE REGAN, SMA #### [facility] (DEFAULT) [address] [place] [address] 82400 Platelet mean volume (Bld) [Entitic vol] 12.0 fL Normal Male: 8.7-12.3, Female: 8.5-12.2 [facility] Comment on above: Performed By: #### MEE REGAN, SMA #### [facility] (DEFAULT) [address] [place] [address] 16845 Platelets (Bld) [#/Vol] 208 10*3/uL Normal Male : 146-337, Female: 150-393 [facility] Comment on above: Performed By: #### MEE REGAN, SMA #### [facility] (DEFAULT) [address] [place] [address] 76391 RBC (Bld) [#/Vol] 4.63 10*6/uL Normal Male: 4.38-5.83, Female: 3.91-5.04 [facility] Comment on above: Performed By: #### D MEE EAGLE, SMA #### [facility] (DEFAULT) [address] [place] [address] 06178 RBC Distribution 14.4 % High Male: 10.9-14.9, Female: 10.8-14.9 [facility] Comment on above: Performed By: #### Bárbara EAGLE ANASR, SMA #### [facility] (DEFAULT) [address] [place] [address] 15760 Segs + Bands Auto 59.0 % Normal [facility] Comment on above: Performed By: #### D MEE EAGLE, #### [facility] (DEFAULT) [address] [place] [address] 66529 Segs + Bands,Absolute Auto 6.52 K/uL High Male: 1.57-6.19, Female: 1.64-7.28 [facility] Comment on above: Performed By: #### MEE REGAN, #### [facility] (DEFAULT) [address] [place] [address] 49996 WBC (Bld) [#/Vol] 11.06 10*3/uL High Male: 3.73-10.10, Female: 3.99-11.19 [facility] Comment on above: Performed By: #### D MEE EAGLE, #### [facility] (DEFAULT) [address] [place] [address] 90670 Basophils (Bld) [#/Vol] 0.04 10*3/uL Male : 0.00-0.09, Female: 0.00-0.15 [facility] Basophils/100 WBC (Bld) 0.4 % [facility] Differential cell count method Nom (Bld) Electronic Differential [facility] Eosinophils (Bld) [#/Vol] 10*3/uL Male: 0.00-0.48, Female: 0.00-0.42 K/uL [facility] Eosinophils/100 WBC (Bld) 0.0 % [facility] Erythrocyte distribution width (RBC) [Ratio] 14.4 % High Male: 10.9-14.9, Female: 10.8-14.9 [facility] Hematocrit (Bld) [Volume fraction] 37.5 % Low Male: 39.6-48.8, Female: 34.9-44.3 [facility] Hemoglobin (Bld) [Mass/Vol] 12.1 g/dL Male: 13.4-16.8, Female: 11.4-15.2 [facility] Immature granulocytes (Bld) [#/Vol] 0.06 10*3/uL Male: <=0.07, Female: <=0.08 [facility] Immature granulocytes/100 WBC (Bld) 0.5 % [facility] Interpretation and review of laboratory results Abnormal [facility] Lymphocytes (Bld) [#/Vol] 3.60 10*3/uL High Male: 0.83-3.57, Female: 1.16-3.51 [facility] Lymphocytes/100 WBC (Bld) 32.5 % [facility] MCH (RBC) [Entitic mass] 26.1 pg Male: 26.1-33.3, Female: 25.9-33.9 [facility] MCHC (RBC) [Mass/Vol] 32.3 g/dL Male: 31.9-36.5, Female: 31.4-35.9 [facility] MCV (RBC) [Entitic vol] 81.0 fL Male : 79.0-94.5, Female: 79.6-97.7 [facility] Monocytes (Bld) [#/Vol] 0.84 10*3/uL Male : 0.24-0.93 Female: 0.22-0.87 [facility] Monocytes/100 WBC (Bld) 7.6 % [facility] Neutrophils (Bld) [#/Vol] 6.52 10*3/uL High Male: 1.57-6.19, Female: 1.64-7.28 [facility] Nucleated RBC/100 WBC (Bld) [Ratio] 0.0 % <=0.2 /100 WBC [facility] Platelet mean volume (Bld) [Entitic vol] 12.0 fL Male: 8.7-12.3, Female: 8.5-12.2 [facility] Platelets (Bld) [#/Vol] 208 10*3/uL Male : 146-337, Female: 150-393 [facility] RBC (Bld) [#/Vol] 4.63 10*6/uL Male: 4.38-5.83, Female: 3.91-5.04 M/uL [facility] Segmented neutrophils/100 WBC (Bld) 59.0 % [facility] WBC (Bld) [#/Vol] 11.06 10*3/uL High Male: 3.73-10.10, Female: 3.99-11.19 [facility] CHEM 7 (LYTES,BUN,CREA,GLUC) on 06-25-2022 Anion gap [Moles/Vol] 16 mmol/L Normal 7-17 [facility] Comment on above: Performed By: #### I PB, MGO, C7C, HFP #### [facility] (DEFAULT) [address] [place] [address] 80307 Chloride [Moles/Vol] 100 mmol/L Normal 98-108 [facility] Comment on above: Performed By: #### I PB, MGO, C7C, HFP #### [facility] (DEFAULT) [address] [place] [address] 77655 CO2 [Moles/Vol] 24 mmol/L Normal 21-31 [place] Comment on above: Performed By: #### I PB, MGO, C7C, HFP #### [facility] (DEFAULT) [address] [place] [address] 97239 Creatinine [Mass/Vol] 0.82 mg/dL Normal Male: 0.7-1.3, Female: 0.5-1.2 [facility] Comment on above: Performed By: #### I PB, MGO, C7C, HFP #### [facility] (DEFAULT) [address] [place] [address] 13223 eGFR, CKD-EPI, Female >90 Normal >=60 [facility] Comment on above: Result Comment: Repo rted eGFR is based on the CKD-EPI 2020 equation using creatinine, age, and sex. Performed By: #### I PB, MGO, C7C, HFP #### [facility] (DEFAULT) [address] [place] [address] 88633 eGFR, CKD-EPI, Male >90 Normal >=60 [facility] Comment on above: Result Comment: Repo rted eGFR is based on the CKD-EPI 2020 equation using creatinine, age, and sex. Performed By: #### I PB, MGO, C7C, HFP #### [facility] (DEFAULT) [address] [place] [address] 14962 Glucose [Mass/Vol] 73 mg/dL Normal 70-99 [facility] Comment on above: Performed By: #### I PB, MGO, C7C, HFP #### [facility] (DEFAULT) [address] [place] [address] 69602 Osmolality [Osmolality] 282 mosm/kg Normal 278-305 [facility] Comment on above: Performed By: #### I PB, MGO, C7C, HFP #### [facility] (DEFAULT) [address] [place] [address] 69997 Potassium [Moles/Vol] 3.9 mmol/L Normal 3.5-5.0 [facility] Comment on above: Performed By: #### I PB, MGO, C7C, HFP #### [facility] (DEFAULT) [address] [place] [address] 85305 Sodium [Moles/Vol] 136 mmol/L Normal 135-145 [facility] Comment on above: Performed By: #### I PB, MGO, C7C, HFP #### [facility] (DEFAULT) [address] [place] [address] 61025 Urea nitrogen [Mass/Vol] 10 mg/dL Normal 7-25 [facility] Comment on above: Performed By: #### I PB, MGO, C7C, HFP #### [facility] (DEFAULT) [address] [place] [address] 16665 Urea nitrogen/Creatinine [Mass ratio] 12 mg/mg Normal [facility] Comment on above: Performed By: #### I PB, MGO, C7C, HFP #### [facility] (DEFAULT) [address] [place] [address] Anion gap [Moles/Vol] 16 mmol/L 7 - 17 mmol/L [facility] Chloride [Moles/Vol] 100 mmol/L 98 - 10 8 mmol/L [facility] CO2 [Moles/Vol] 24 mmol/L 21 - 31 mmol/L [facility] Creatinine [Mass/Vol] 0.82 mg/dL Male: 0.7-1.3, Female: 0.5-1.2 [facility] Glucose [Mass/Vol] 73 mg/dL 70 - 99 mg/dL [facility] Osmolality Calc [Osmolality] 282 [facility] Potassium [Moles/Vol] 3.9 mmol/L 3.5 - 5.0 mmol/L [facility] Sodium [Moles/Vol] 136 mmol/L 135 - 145 mmol/L [facility] Urea nitrogen [Mass/Vol] 10 mg/dL 7 - 25 mg/dL [facility] Urea nitrogen/Creatinine [Mass ratio] 12 mg/mg [facility] CORTISOLOrdered By: Floridalma Mishra on 06-25-2022 Cortisol [Mass/Vol] 123.14 ug/dL High [facility] Interpretation and review of laboratory results Abnormal [facility] CORTISOLon 06-25-2022 Cortisol 123.14 mcg/dL High 3.09-22.40 [facility] Comment on above: Performed By: #### D MEE EAGLE SMA #### [facility] (DEFAULT) [address] [address] DHEA-SULFATEon 06-25-2022 DHEA-Sulfate <15 Low 35-430 [facility] Comment on above: Performed By: #### D MEE EAGLE SMA #### [facility] (DEFAULT) [address] [address] GLUCOSE POCon 06-25-2022 Glucose [Mass/Vol] 108 mg/dL High 70 - 99 mg/dL [facility] Interpretation and review of laboratory results Abnormal [facility] POC Sample Type CAPBL [facility] Test performed at address of the patient encounter. [facility] Glucose [Mass/Vol] 100 mg/dL High 70 - 99 mg/dL [facility] Interpretation and review of laboratory results Abnormal [facility] POC Sample Type CAPBL [facility] Test performed at address of the patient encounter. [facility] Glucose [Mass/Vol] 90 mg/dL 70 - 99 mg/dL [facility] POC Sample Type CAPBL [facility] Test performed at address of the patient encounter. [facility] Glucose [Mass/Vol] 89 mg/dL 70 - 99 mg/dL [facility] POC Sample Type CAPBL [facility] Test performed at address of the patient encounter. [facility] HEPATIC FUNCTION PANELon Albumin [Mass/Vol] 4.0 g/dL Normal Male: 3.5-5.0, Female: 3.5-5.0 [facility] Comment on above: Performed By: #### I PB MGO C7C, HFP #### [facility] (DEFAULT) [address] [place] [address] ALP [Catalytic activity/Vol] 104 U/L Normal Male: 32-126, Female: 32-126 [facility] Comment on above: Performed By: #### I PB, MGO C7C, HFP #### [facility] (DEFAULT) [address] [place] [address] ALT [Catalytic activity/Vol] 365 U/L High Male: 10-52, Female: 9-48 [facility] Comment on above: Performed By: #### I PB, MGO, C7C, HFP #### [facility] (DEFAULT) [address] [place] [address] AST [Catalytic activity/Vol] 69 U/L High Male: 10-39, Female: 10-39 [facility] Comment on above: Performed By: #### I PB, MGO, C7C, HFP #### [facility] (DEFAULT) [address] [place] [address]46 Bilirubin [Mass/Vol] 0.7 mg/dL Normal <1.5 [facility] Comment on above: Performed By: #### I PB, MGO, C7C, HFP #### [facility] (DEFAULT) [address] [place] [address] Bilirubin.indirect [Mass/Vol] 0.1 mg/dL Normal <0.3 [facility] Comment on above: Performed By: #### I PB, MGO, C7C, HFP #### [facility] (DEFAULT) [address] [place] [address]71 Protein [Mass/Vol] 7.3 g/dL Normal Male: 6.4-8.3, Female: 6.4-8.3 [facility] Comment on above: Performed By: #### I PB, MGO, C7C, HFP #### [facility] (DEFAULT) [address] [place] [address] Albumin [Mass/Vol] 4.0 g/dL Male: 3.5-5.0, Female: 3.5-5.0 [facility] ALP [Catalytic activity/Vol] 104 U/L Male: 32-126, Female: 32-126 [facility] ALT [Catalytic activity/Vol] 365 U/L High Male: 10-52, Female: 9-48 [facility] AST [Catalytic activity/Vol] 69 U/L High Male: 10-39, Female: 10-39 [facility] Bilirubin [Mass/Vol] 0.7 mg/dL <1.5 [facility] Bilirubin.direct [Mass/Vol] 0.1 mg/dL <0.3 [facility] Interpretation and review of laboratory results Abnormal [facility] Protein [Mass/Vol] 7.3 g/dL Male: 6.4-8.3, Female: 6.4-8.3 [facility] HEPATITIS B CORE IGM ABon Hep B Core IgM Ab Negative Normal Negative [facility] Comment on above: Performed By: #### D SHAGUFTA, MEE, SMA #### [facility] (DEFAULT) [address] [place] [address] HEPATITIS BATTERY, CHRONICon 06-25-2022 Hep B Core Ab,Total (IgG+IgM) Negative Normal Negative [facility] Comment on above: Performed By: #### D SHAGUFTA, ANASR, SMA #### [facility] (DEFAULT) [address] [place] [address] Hep B Surface Ab Positive Abnormal Negative [facility] Comment on above: Performed By: #### D SHAGUFTA, ANASR, SMA #### [facility] (DEFAULT) [address] [address] Hepatitis B Surface Ag Negative Normal Negative [facility] Comment on above: Performed By: #### D SHAGUFTA, ANA, SMA #### [facility] (DEFAULT) [address] [place] [address] Hepatitis C Antibody Negative Normal Negative [facility] Comment on above: Performed By: #### D SHAGUFTA, ANA, SMA #### [facility] (DEFAULT) [address] [place] [address] Laboratory - Chemistry and C hemistry - challengeon 06-25-2022 GFR/1.73 sq M.predicted CKD-EPI (S/P/Bld) [Vol rate/Area] >90 >=60 mL/min/1.73m 2 [facility] Comment on above: Reported eGFR is bas ed on the CKD-EPI 2020 equation using creatinine, age, and sex. MAGNESIUMon 06-25-2022 Magnesium [Mass/Vol] 1.9 mg/dL Normal Male: 1.6-2.6, Female: 1.6-2.6 [facility] Comment on above: Performed By: #### I PB, MGO, C7C, HFP #### [facility] (DEFAULT) [address] [place] [address] Magnesium [Mass/Vol] 1.9 mg/dL Male: 1.6-2.6, Female: 1.6-2.6 [facility] No Panel Informationon 06-25 Interpretation and review of laboratory results Normal [facility] PROTEIN ELECTROPHORESISon Albumin [Mass/Vol] 3.6 g/dL Normal 3.5-5.0 [facility] Comment on above: Performed By: #### I PB, MGO, C7C, HFP #### [facility] (DEFAULT) [address] [place] [address] Alpha 1 0.3 g/dL Normal 0.2-0.4 [facility] Comment on above: Performed By: #### I PB, MGO, C7C, HFP #### [facility] (DEFAULT) [address] [place] [address] Alpha 2 0.7 g/dL Normal 0.5-1.0 [facility] Comment on above: Performed By: #### I PB, MGO, C7C, HFP #### [facility] (DEFAULT) [address] [place] [address]209 Beta 0.9 g/dL Normal 0.5-1.1 [facility] Comment on above: Performed By: #### I PB, MGO, C7C, HFP #### [facility] (DEFAULT) [address] [place] [address] Gamma 1.2 g/dL Normal 0.6-1.5 [facility] Comment on above: Performed By: #### I PB, MGO, C7C, HFP #### [facility] (DEFAULT) [address] [place] [address] Interpretation By: Grady Mcdermott MD Normal [facility] Comment on above: Performed By: #### I PB, MGO, C7C, HFP #### [facility] (DEFAULT) [address] [place] [address] Spe Interpretation Normal serum protein electrophoresis pattern. Normal [facility] Comment on above: Performed By: #### I PB, MGO, C7C, HFP #### [facility] (DEFAULT) [address] [place] [address] PT,INR,PTTon 06-25-2022 aPTT Coag (Bld) [Time] 27.3 s Normal 24.0-34.3 [facility] Comment on above: Performed By: #### I PB, MGO, C7C, HFP #### [facility] (DEFAULT) [address] [place] [address] INR Coag (PPP) [Relative time] 1.1 {INR} Normal 0.9-1.1 [facility] Comment on above: Performed By: #### I PB, MGO, C7C, HFP #### [facility] (DEFAULT) [address] [place] [address] PT Coag (PPP) [Time] 14.3 s High 11.9-14.2 [facility] Comment on above: Performed By: #### I PB, MGO, C7C, HFP #### [facility] (DEFAULT) [address] [place] [address] aPTT Coag (PPP) [Time] 27.3 s [facility] INR Coag (Bld) [Relative time] 1.1 {INR} [facility] Interpretation and review of laboratory results Abnormal [facility] PT Coag (PPP) [Time] 14.3 s High [facility] SPE SERUM TOTAL PROTEINon Interpretation and review of laboratory results Normal [facility] Protein [Mass/Vol] 6.6 g/dL Male: 6.4-8.3, Female: 6.4-8.3 [facility] Protein [Mass/Vol] 6.6 g/dL Normal Male: 6.4-8.3, Female: 6.4-8.3 [facility] Comment on above: Performed By: #### I PB, MGO, C7C, HFP #### [facility] (DEFAULT) [address] [place] [address] T4 FREEon 06-25-2022 Free T4 [Mass/Vol] 1.32 ng/dL 0.86 - 1. 76 ng/dL [facility] Interpretation and review of laboratory results Normal [facility] Free T4 [Mass/Vol] 1.32 ng/dL Normal 0.86-1.76 [facility] Comment on above: Performed By: #### I PB, MGO, C7C, HFP #### [facility] (DEFAULT) [address] [place] [address] TSH W/FT4 REFLEXon TSH 3.994 uIU/mL Normal 0.550-4.780 [facility] Comment on above: Performed By: #### I PB, MGO, C7C, HFP #### [facility] (DEFAULT) [address] [place] [address] Interpretation and review of laboratory results Normal [facility] TSH Qn 3.994 m[IU]/L [facility] URINALYSIS REFLEX TO CULTURE PERFORMABLEon 06-25-2022 Appearance (U) Clear Normal Clear [facility] Comment on above: Order Comment: For i ndwelling catheters, specimen collection is acceptable on catheter day 1 and 2 only. ? Performed By: #### I PB, MGO, C7C, HFP #### [facility] (DEFAULT) [address] [place] [address] Bacteria TRACE Abnormal ABSENT [facility] Comment on above: Order Comment: For i ndwelling catheters, specimen collection is acceptable on catheter day 1 and 2 only. ? Performed By: #### I PB, MGO, C7C, HFP #### [facility] (DEFAULT) [address] [place] [address] Blood Urine Small Abnormal Negative [facility] Comment on above: Order Comment: For i ndwelling catheters, specimen collection is acceptable on catheter day 1 and 2 only. ? Performed By: #### I PB, MGO, C7C, HFP #### [facility] (DEFAULT) [address] [place] [address] Color (U) Yellow Normal Yellow [facility] Comment on above: Order Comment: For i ndwelling catheters, specimen collection is acceptable on catheter day 1 and 2 only. ? Performed By: #### I PB, MGO, C7C, HFP #### [facility] (DEFAULT) [address] [place] [address] Glucose Ql (U) Negative Normal Negative [facility] Comment on above: Order Comment: For i ndwelling catheters, specimen collection is acceptable on catheter day 1 and 2 only. ? Performed By: #### I PB, MGO, C7C, HFP #### [facility] (DEFAULT) [address] [place] [address]857 Ketones Ql (U) Negative Normal Negative [facility] Comment on above: Order Comment: For i ndwelling catheters, specimen collection is acceptable on catheter day 1 and 2 only. ? Performed By: #### I PB, MGO, C7C, HFP #### [facility] (DEFAULT) [address] [place] [address]99 Leukocyte esterase Test strip Ql (U) Negative Normal Negative [facility] Comment on above: Order Comment: For i ndwelling catheters, specimen collection is acceptable on catheter day 1 and 2 only. ? Performed By: #### I PB, MGO, C7C, HFP #### [facility] (DEFAULT) [address] [place] [address]005 Nitrites Urine Negative Normal Negative [facility] Comment on above: Order Comment: For i ndwelling catheters, specimen collection is acceptable on catheter day 1 and 2 only. ? Performed By: #### I PB, MGO, C7C, HFP #### [facility] (DEFAULT) [address] [place] [address]143 pH (U) 6.5 [pH] Normal 5.0-7.0 [facility] Comment on above: Order Comment: For i ndwelling catheters, specimen collection is acceptable on catheter day 1 and 2 only. ? Performed By: #### I PB, MGO, C7C, HFP #### [facility] (DEFAULT) [address] [place] [address]21 Protein Urine Negative Normal Negative [facility] Comment on above: Order Comment: For i ndwelling catheters, specimen collection is acceptable on catheter day 1 and 2 only. ? Performed By: #### I PB, MGO, C7C, HFP #### [facility] (DEFAULT) [address] [place] [address] 53040 RBC Urine 0-2 Normal 0-2 [facility] Comment on above: Order Comment: For i ndwelling catheters, specimen collection is acceptable on catheter day 1 and 2 only. ? Performed By: #### I PB, MGO, C7C, HFP #### [facility] (DEFAULT) [address] [place] [address] Specific [place] Urine 1.010 Normal 1.001-1.035 [facility] Comment on above: Order Comment: For i ndwelling catheters, specimen collection is acceptable on catheter day 1 and 2 only. ? Performed By: #### I PB, MGO, C7C, HFP #### [facility] (DEFAULT) [address] [place] [address] Squamous/Epithelial Cells 1/hpf = 1+ Normal 1/hpf = 1+, 2-5/hpf = 2+, 0/hpf = 0+, ABSENT [facility] Comment on above: Order Comment: For i ndwelling catheters, specimen collection is acceptable on catheter day 1 and 2 only. ? Performed By: #### I PB, MGO, C7C, HFP #### [facility] (DEFAULT) [address] [place] [address]149 Urobilinogen Urine 0.2 E.U./dL Normal 0.2 E.U/d L, 1.0 E.U/dL [facility] Comment on above: Order Comment: For i ndwelling catheters, specimen collection is acceptable on catheter day 1 and 2 only. ? Performed By: #### I PB, MGO, C7C, HFP #### [facility] (DEFAULT) [address] [place] [address] WBC Urine 0-5 Normal 0-5 [facility] Comment on above: Order Comment: For i ndwelling catheters, specimen collection is acceptable on catheter day 1 and 2 only. ? Performed By: #### I PB, MGO, C7C, HFP #### [facility] (DEFAULT) [address] [place] [address] URINALYSIS REFLEX TO CULTURE PERFORMABLEOrdered By: Yaz Mon on 06-25-2022 Appearance (U) Clear Clear [facility] Bacteria LM Ql (Urine sed) TRACE Abnormal ABSENT [facility] Color (U) Yellow Yellow [facility] Epithelial cells.squamous LM Ql (Urine sed) 1/hpf = 1+ 1/hpf = 1+, 2-5/hpf = 2+, 0/hpf = 0+, ABSENT [facility] Glucose Test strip (U) [Mass/Vol] Negative Negative [facility] Interpretation and review of laboratory results Abnormal [facility] Ketones (U) [Mass/Vol] Negative Negative [facility] Leukocyte esterase Test strip Ql (U) Negative Negative [facility] Nitrite Ql (U) Negative Negative [facility] pH (U) 6.5 [pH] 5.0 - 7.0 [facility] Protein (U) [Mass/Vol] Negative Negative [facility] RBC (U) [#/Vol] Small Abnormal Negative [facility] RBC LM.HPF (Urine sed) [#/Area] 0-2 0 - 2 /HPF [facility] Specific gravity (U) [Rel density] 1.010 [facility] Urobilinogen (U) [Mass/Vol] 0.2 E.U./dL 0.2 E.U/dL, 1.0 E.U/dL [facility] WBC LM.HPF (Urine sed) [#/Area] 0-5 0 - 5 /HPF [facility]/GBon US ABDOMEN RUQ/LIVER/GB EXAM: US ABDOMEN RUQ/LIVER/GB, 06/25/2022 15:20 PM CLINICAL INDICATIONS: transaminitis COMPARISON: No prior studies available for comparison. TECHNIQUE: Real-time ultrasound evaluation of the right upper quadrant was performed utilizing a curved array transducer. Duplex scan is performed. Color flow images and spectral waveforms obtained. FINDINGS: Pancreas: Normal. Liver: The liver parenchyma is homogenous in echotexture. There is no evidence of an intrahepatic mass or biliary ductal dilation. Doppler ultrasound demonstrates hepatopetal flow in the main portal vein. Flow velocity is 51.6 cm/sec which is borderline elevated, potentially due to recent eating or hyperdynamic cardiac status. Gall Bladder: Cholecystectomy. The common duct is normal in caliber measuring 3 mm in diameter. Right Kidney: Normal without hydronephrosis. Bipolar length is 11.6 cm. Ascites: None in the right upper quadrant. IMPRESSION: Normal right upper quadrant ultrasound following cholecystectomy. Normal [facility] US Abdomen RUQon 06-25-2022 IMPRESSION: Normal right upper quadrant ultrasound following cholecystectomy. OLOGY EXAM: US ABDOMEN RUQ/LIVER/GB, 06/25/2022 15:20 PM CLINICAL INDICATIONS: transaminitis COMPARISON: No prior studies available for comparison. TECHNIQUE: Real-time ultrasound evaluation of the right upper quadrant was performed utilizing a curved array transducer. Duplex scan is performed. Color flow images and spectral waveforms obtained. FINDINGS: Pancreas: Normal. Liver: The liver parenchyma is homogenous in echotexture. There is no evidence of an intrahepatic mass or biliary ductal dilation. Doppler ultrasound demonstrates hepatopetal flow in the main portal vein. Flow velocity is 51.6 cm/sec which is borderline elevated, potentially due to recent eating or hyperdynamic cardiac status. Gall Bladder: Cholecystectomy. The common duct is normal in caliber measuring 3 mm in diameter. Right Kidney: Normal without hydronephrosis. Bipolar length is 11.6 cm. Ascites: None in the right upper quadrant. RADIOLOGY Melania Peterson MD - 06/25/2022 EXAM: US ABDOMEN RUQ/LIVER/GB, 06/25/2022 15:20 PM CLINICAL INDICATIONS: transaminitis COMPARISON: No prior studies available for comparison. TECHNIQUE: Real-time ultrasound evaluation of the right upper quadrant was performed utilizing a curved array transducer. Duplex scan is performed. Color flow images and spectral waveforms obtained. FINDINGS: Pancreas: Normal. Liver: The liver parenchyma is homogenous in echotexture. There is no evidence of an intrahepatic mass or biliary ductal dilation. Doppler ultrasound demonstrates hepatopetal flow in the main portal vein. Flow velocity is 51.6 cm/sec which is borderline elevated, potentially due to recent eating or hyperdynamic cardiac status. Gall Bladder: Cholecystectomy. The common duct is normal in caliber measuring 3 mm in diameter. Right Kidney: Normal without hydronephrosis. Bipolar length is 11.6 cm. Ascites: None in the right upper quadrant. IMPRESSION IMPRESSION: Normal right upper quadrant ultrasound following cholecystectomy. [facility] Radiology Study observation (narrative) [facility] US Abdomen RUQOrdered By: Jarrett Peterson on 06-25-2022 [facility] Work Phone: XR ABDOMEN 1 VIEW PORTABLEon 06-25-2022 XR ABDOMEN 1 VIEW PORTABLE EXAM: XR ABDOMEN 1 VIEW PORTABLE, 06/25/2022 16:02 PM COMPARISON: No prior abdominal radiographs available for comparison. CLINICAL INDICATIONS: ng tube placement FINDINGS: Limited field of view radiograph of the upper abdomen was obtained to evaluate enteric tube positioning. The NG tube is located with its tip and side-port in the gastric body. Bowel gas pattern is non-obstructive. No gross free air. IMPRESSION: Appropriately positioned enteric tube. Normal [facility] XR Abdomen Single viewon IMPRESSION: Appropriately positioned enteric tube. OLOGY EXAM: XR ABDOMEN 1 V IEW PORTABLE, 06/25/2022 16:02 PM COMPARISON: No prior abdominal radiographs available for comparison. CLINICAL INDICATIONS: ng tube placement FINDINGS: Limited field of view radiograph of the upper abdomen was obtained to evaluate enteric tube positioning. The NG tube is located with its tip and side-port in the gastric body. Bowel gas pattern is non-obstructive. No gross free air. RADIOLOGY Roby Salcedo M D - 06/25/2022 EXAM: XR ABDOMEN 1 VIEW PORTABLE, 06/25/2022 16:02 PM COMPARISON: No prior abdominal radiographs available for comparison. CLINICAL INDICATIONS: ng tube placement FINDINGS: Limited field of view radiograph of the upper abdomen was obtained to evaluate enteric tube positioning. The NG tube is located with its tip and side-port in the gastric body. Bowel gas pattern is non-obstructive. No gross free air. IMPRESSION IMPRESSION: Appropriately positioned enteric tube. [facility] Radiology Study observation (narrative) [facility] XR Abdomen Single viewOrdere d By: Roby Salcedo on 06-25-2022 [facility] Work Phone: STREP A MOLECULAR (POC)on Procedural Control Valid [facility] Strep A (POCT) Negative Negative [facility] No Panel Informationon 02-09 IMPRESSION: Mild narrowing of the interphalangeal joints otherwise unremarkable Esthetician: FELICIA Transcribe Date/Time: Feb 09 2022 9:37A Dictated by : BENNY GONCALVES DO This examination was interpreted and the report reviewed and electronically signed by: BENNY GONCALVES DO on Feb 09 2022 9:43AM EST ZZZ_DO_NOT_U SE_DIVISION OF RADIOLOGY IMPRESSION: No acute 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: FELICIA Transcribe Date/Time: Feb 09 2022 9:40A Dictated by : BENNY GONCALVES DO This examination was interpreted and the report reviewed and electronically signed by: BENNY GONCALVES DO on Feb 09 2022 9:42AM EST ZZZ_DO_NOT_U SE_DIVISION OF RADIOLOGY [facility] Radiology Study observation (narrative) [facility] No Panel InformationOrdered By: [facility]cf Provider on 02-09-2022 [facility] STREP A MOLECULAR (POC)on Procedural Control Valid [facility] Strep A (POCT) Negative Negative [facility] XR Ankle - bilateral AP and Lateral and obliqueon 02-09-2022 * * *Final Report* * * DATE OF EXAM: Feb 09 2022 9:31AM WOX [id number] - XR ANKLE 3V AP/LAT/OBL MATT / PROCEDURE REASON: multiple diagnoses * * * * Physician Interpretation * * * * XR FOOT 3V AP/LAT/OBL MATT, XR ANKLE 3V AP/LAT/OBL MATT EXAM DATE/TIME: 02/09/2022 9:31 AM HISTORY: 26 years old Clinical information: Elevated antinuclear antibody (BOBBY) level Dysphagia, unspecified type Malar rash Polyarthralgia Bilateral diffuse ankle and feet pain with swelling x 2 months, concern for lupus TECHNIQUE: Images: XR FOOT 3V AP/LAT/OBL MATT, XR ANKLE 3V AP/LAT/OBL MATT Comparison: None. RESULT: Findings: Bilateral findings: Bone density well-preserved. Joint spaces are well-preserved. No erosions. Right :No fractures or dislocations are seen. Left :No fractures or dislocations are seen. [email or web address]_U SE_DIVISION OF RADIOLOGY Provider, [facility] - 02/09/2022 * * *Final Report* * * DATE OF EXAM: Feb 09 2022 9:31AM WOX 5553 - XR ANKLE 3V AP/LAT/OBL MATT / PROCEDURE REASON: multiple diagnoses * * * * Physician Interpretation * * * * XR FOOT 3V AP/LAT/OBL MATT, XR ANKLE 3V AP/LAT/OBL MATT EXAM DATE/TIME: 02/09/2022 9:31 AM HISTORY: 26 years old Clinical information: Elevated antinuclear antibody (BOBBY) level Dysphagia, unspecified type Malar rash Polyarthralgia Bilateral diffuse ankle and feet pain with swelling x 2 months, concern for lupus TECHNIQUE: Images: XR FOOT 3V AP/LAT/OBL MATT, XR ANKLE 3V AP/LAT/OBL MATT Comparison: None. RESULT: Findings: Bilateral findings: Bone density well-preserved. Joint spaces are well-preserved. No erosions. Right :No fractures or dislocations are seen. Left :No fractures or dislocations are seen. 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: FELICIA Transcribe Date/Time: Feb 09 2022 9:40A Dictated by : BENNY GONCALVES DO This examination was interpreted and the report reviewed and electronically signed by: BENNY GONCALVES DO on Feb 09 2022 9:42AM [facility] XR Foot - bilateral AP and L ateral and obliqueon 02-09-2022 * * *Final Report* * * DATE OF EXAM: Feb 09 2022 9:31AM WOX 5555 - XR FOOT 3V AP/LAT/OBL MATT / PROCEDURE REASON: multiple diagnoses * * * * Physician Interpretation * * * * XR FOOT 3V AP/LAT/OBL MATT, XR ANKLE 3V AP/LAT/OBL MATT EXAM DATE/TIME: 02/09/2022 9:31 AM HISTORY: 26 years old Clinical information: Elevated antinuclear antibody (BOBBY) level Dysphagia, unspecified type Malar rash Polyarthralgia Bilateral diffuse ankle and feet pain with swelling x 2 months, concern for lupus TECHNIQUE: Images: XR FOOT 3V AP/LAT/OBL MATT, XR ANKLE 3V AP/LAT/OBL MATT Comparison: None. RESULT: Findings: Bilateral findings: Bone density well-preserved. Joint spaces are well-preserved. No erosions. Right :No fractures or dislocations are seen. Left :No fractures or dislocations are seen. [id number]_U SE_DIVISION OF RADIOLOGY Provider, [facility] - 02/09/2022 * * *Final Report* * * DATE OF EXAM: Feb 09 2022 9:31AM WOX 5555 - XR FOOT 3V AP/LAT/OBL MATT / PROCEDURE REASON: multiple diagnoses * * * * Physician Interpretation * * * * XR FOOT 3V AP/LAT/OBL MATT, XR ANKLE 3V AP/LAT/OBL MATT EXAM DATE/TIME: 02/09/2022 9:31 AM HISTORY: 26 years old Clinical information: Elevated antinuclear antibody (BOBBY) level Dysphagia, unspecified type Malar rash Polyarthralgia Bilateral diffuse ankle and feet pain with swelling x 2 months, concern for lupus TECHNIQUE: Images: XR FOOT 3V AP/LAT/OBL MATT, XR ANKLE 3V AP/LAT/OBL MATT Comparison: None. RESULT: Findings: Bilateral findings: Bone density well-preserved. Joint spaces are well-preserved. No erosions. Right :No fractures or dislocations are seen. Left :No fractures or dislocations are seen. 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: PSCB Transcribe Date/Time: Feb 09 2022 9:40A Dictated by : BENNY GONCALVES DO This examination was interpreted and the report reviewed and electronically signed by: BENNY GONCALVES DO on Feb 09 2022 9:42AM [facility] XR Hand - bilateral PA and L ateral and Obliqueon 02-09-2022 * * *Final Report* * * DATE OF EXAM: Feb 09 2022 9:31AM WOX 5556 - XR HAND 3V PA/LAT/OBL MATT / PROCEDURE REASON: multiple diagnoses * * * * Physician Interpretation * * * * XR HAND 3V PA/LAT/OBL MATT/ XR WRIST 3V PA/LAT/OBL MATT HISTORY: 26 years old Clinical information: Elevated antinuclear antibody (BOBBY) level Dysphagia, unspecified type Malar rash Polyarthralgia TECHNIQUE: Images: XR HAND 3V PA/LAT/OBL MATT, XR WRIST 3V PA/LAT/OBL MATT . Comparison: None. RESULT: Findings: Findings in the wrists and hands bilaterally: No periarticular erosions are seen. Bone density well-preserved. Mild narrowing of the interphalangeal joints Right wrist: No fractures or dislocations are seen. Right hand: No fractures or dislocations are seen. Left wrist: No fractures or dislocations are seen. Left hand: No fractures or dislocations are seen. [id number]_NOT_U _DIVISION OF RADIOLOGY Provider, [facility] - 02/09/2022 * * *Final Report* * * DATE OF EXAM: Feb 09 2022 9:31AM WOX 5556 - XR HAND 3V PA/LAT/OBL MATT / PROCEDURE REASON: multiple diagnoses * * * * Physician Interpretation * * * * XR HAND 3V PA/LAT/OBL MATT/ XR WRIST 3V PA/LAT/OBL MATT HISTORY: 26 years old Clinical information: Elevated antinuclear antibody (BOBBY) level Dysphagia, unspecified type Malar rash Polyarthralgia TECHNIQUE: Images: XR HAND 3V PA/LAT/OBL MATT, XR WRIST 3V PA/LAT/OBL MATT . Comparison: None. RESULT: Findings: Findings in the wrists and hands bilaterally: No periarticular erosions are seen. Bone density well-preserved. Mild narrowing of the interphalangeal joints Right wrist: No fractures or dislocations are seen. Right hand: No fractures or dislocations are seen. Left wrist: No fractures or dislocations are seen. Left hand: No fractures or dislocations are seen. IMPRESSION IMPRESSION: Mild narrowing of the interphalangeal joints otherwise unremarkable Esthetician: PSCB Transcribe Date/Time: Feb 09 2022 9:37A Dictated by : BENNY GONCALVES DO This examination was interpreted and the report reviewed and electronically signed by: BENNY GONCALVES DO on Feb 09 2022 9:43AM [facility] XR Wrist - bilateral PA and Lateral and Obliqueon 02-09-2022 * * *Final Report* * * DATE OF EXAM: Feb 09 2022 9:31AM WOX 5621 - XR WRIST 3V PA/LAT/OBL MATT / PROCEDURE REASON: multiple diagnoses * * * * Physician Interpretation * * * * XR HAND 3V PA/LAT/OBL MATT/ XR WRIST 3V PA/LAT/OBL MATT HISTORY: 26 years old Clinical information: Elevated antinuclear antibody (BOBBY) level Dysphagia, unspecified type Malar rash Polyarthralgia TECHNIQUE: Images: XR HAND 3V PA/LAT/OBL MATT, XR WRIST 3V PA/LAT/OBL MATT . Comparison: None. RESULT: Findings: Findings in the wrists and hands bilaterally: No periarticular erosions are seen. Bone density well-preserved. Mild narrowing of the interphalangeal joints Right wrist: No fractures or dislocations are seen. Right hand: No fractures or dislocations are seen. Left wrist: No fractures or dislocations are seen. Left hand: No fractures or dislocations are seen. ZZZ_DO_NOT_U _DIVISION OF RADIOLOGY Provider, [facility] - 02/09/2022 * * *Final Report* * * DATE OF EXAM: Feb 09 2022 9:31AM WOX 5621 - XR WRIST 3V PA/LAT/OBL MATT / PROCEDURE REASON: multiple diagnoses * * * * Physician Interpretation * * * * XR HAND 3V PA/LAT/OBL MATT/ XR WRIST 3V PA/LAT/OBL MATT HISTORY: 26 years old Clinical information: Elevated antinuclear antibody (BOBBY) level Dysphagia, unspecified type Malar rash Polyarthralgia TECHNIQUE: Images: XR HAND 3V PA/LAT/OBL MATT, XR WRIST 3V PA/LAT/OBL MATT . Comparison: None. RESULT: Findings: Findings in the wrists and hands bilaterally: No periarticular erosions are seen. Bone density well-preserved. Mild narrowing of the interphalangeal joints Right wrist: No fractures or dislocations are seen. Right hand: No fractures or dislocations are seen. Left wrist: No fractures or dislocations are seen. Left hand: No fractures or dislocations are seen. IMPRESSION IMPRESSION: Mild narrowing of the interphalangeal joints otherwise unremarkable Esthetician: FELICIA Transcribe Date/Time: Feb 09 2022 9:37A Dictated by : BENNY GONCALVES DO This examination was interpreted and the report reviewed and electronically signed by: BENNY GONCALVES DO on Feb 09 2022 9:43AM EST [facility] UA DIP, URINE (POC)on 2021 BILIRUBIN UA (POCT) Negative Negative [facility] CLARITY UA (POCT) Clear [facility] COLOR UA (POCT) Yellow [facility] GLUCOSE UA (POCT) Negative Negative mg/dL [facility] HEMOGLOBIN/BLOOD UA (POCT) Moderate Abnormal Negative [facility] KETONE UA (POCT) Negative Negative mg/dL [facility] LEUKOCYTES UA (POCT) Negative Negative [facility] NITRITE UA (POCT) Negative Negative [facility] PH UA (POCT) 7.0 4.5 - 8.0 [facility] Protein Ql (U) Negative Negative mg/dL [facility] SPECIFIC GRAVITY UA (POCT) 1.020 1.005 - 1.030 [facility] UROBILINOGEN UA (POCT) 0.2 E.U./dL Viji l E.U./dL [facility] Cortisol, Freeon 07-07-2021 Free Cortisol 1.00 ug/dL Normal [facility] Reference Lab ACTHon 07-02-2021 ACTH 30.4 pg/mL Normal 7.2-63.3 [facility] Reference Lab Comment on above: Performed By: #### A [facility] #### [facility] Laboratories Routine Lab [address] [place], [place] [address] CBC WITH AUTO DIFFERENTIALon 09-15-2020 Basophils (Bld) [#/Vol] 0.03 10*3/uL [facility] Basophils/100 WBC (Bld) 0.4 % [facility] Eosinophils (Bld) [#/Vol] 0.11 10*3/uL [facility] Eosinophils/100 WBC (Bld) 1.5 % [facility] Erythrocyte distribution width (RBC) [Entitic vol] 14.0 % 11.6 - 14.8 % [facility] Hematocrit (Bld) [Volume fraction] 39.1 % 36 - 46 % [facility] Hemoglobin (Bld) [Mass/Vol] 11.8 g/dL Low 12 - 16 g/dL [facility] Immature granulocytes (Bld) [#/Vol] 0.03 10*3/uL [facility] Immature granulocytes/100 WBC (Bld) 0.40 % [facility] Comment on above: The IG parameter is the percentage of metamyelocytes, myelocytes and promyelocytes. An immature granulocyte count (IG) of 1% or more suggests the possibility of infection, an IG count of 3% is very likely related to an infection. Interpretation and review of laboratory results Abnormal [facility] Lymphocytes (Bld) [#/Vol] 3.42 10*3/uL [facility] Lymphocytes/100 WBC (Bld) 47.3 % [facility] MCH (RBC) [Entitic mass] 25.2 pg Low 26 - 34 pg [facility] MCHC (RBC) [Mass/Vol] 30.2 g/dL Low 31 - 37 g/dL [facility] MCV (RBC) [Entitic vol] 83.4 fL 80 - 100 fL [facility] Monocytes (Bld) [#/Vol] 0.74 10*3/uL [facility] Monocytes/100 WBC (Bld) 10.2 % [facility] Neutrophils (Bld) [#/Vol] 2.90 10*3/uL [facility] Neutrophils/100 WBC (Bld) 40.2 % [facility] Nucleated RBC (Bld) [#/Vol] 0.00 10*3/uL [facility] Nucleated RBC/100 WBC (Bld) [Ratio] 0.0 % [facility] Platelet mean volume (Bld) [Entitic vol] 10.8 fL 9.4 - 12.4 fL [facility] Platelets (Bld) [#/Vol] 349 10*3/uL [facility] RBC (Bld) [#/Vol] 4.69 10*6/uL [facility] WBC (Bld) [#/Vol] 7.23 10*3/uL [facility] eah Hemoglobin A1con 09-15-2020 Average glucose Estimated from glycated hemoglobin mass conc (Bld) 108 mg/dL 68 - 114 mg/dL [facility] HbA1c (Bld) [Mass fraction] 5.4 % 4 - 5.6 % [facility] Interpretation and review of laboratory results Normal [facility] Normal: 4.0% - 5.6% Increased risk for diabetes: 5.7% - 6.4% Diabetes: >= 6.5% Pediatrics: No established reference range Estimated average glucose: 68-114 mg/dL [facility] MR Cow/Carotids/Brain With A nd Without Contraston 09-15-2020 EXAMINATION: MRA COW/CAROTIDS/BRAIN WITH AND WITHOUT CONTRAST HISTORY: ORDERING SYSTEM PROVIDED HISTORY: Neuro deficit, acute, stroke suspected, TECHNOLOGIST PROVIDED HISTORY: Illness/Other Reason for exam: yesterday morning had paralysis left side of body, left sided face droop, numbness of face, swelling, had partial hysterectomy 1 month ago, slurred speech, lasted for about an hour after getting to ER Encounter Type: Initial Additional signs and symptoms: had migraine after incident, ORDERING SYSTEM PROVIDED DIAGNOSIS CODES: COMPARISON: None TECHNIQUE: Brain: multiplanar multiecho sequences were performed through the brain utilizing T1 and T2 weighting, as well as T2 gradient echo sequences, and axial diffusion weighted images. Neck MRA: 2-D and 3-D [id number] MR angiography were obtained through the neck and MIP images were created. Head MRA: 3-D [id number] MR angiography was performed through the major intracranial vessels and MIP images were created. Carotid stenosis is reported according to NASCET criteria. CONTRAST: GADOTERATE MEGLUMINE 0.5 MMOL/ML (376.9 MG/ML) INTRAVENOUS SOLUTION - 13 mL, FINDINGS: Brain : Diagnostic quality: Adequate. The brain sulci and ventricles are within normal limits for patient age. There is no intraparenchymal mass, mass effect or midline shift is noted. No abnormal extra-axial fluid collections are seen. Basal cisterns are patent. The DWI images are slightly degraded by susceptibility artifact. However within the limitation of the study there is no definite acute infarction or intracranial hemorrhage. No abnormal enhancement is noted. Vascular Flow Voids: Normal. Paranasal Sinuses and Mastoid Air Cells: Grossly clear. Orbits: No definite masses within the limitations of the study. Extracranial Findings: None. Craniocervical Junction and Skull Base: No tonsillar ectopia or mass is present. Neck MRA: Diagnostic Quality: Slightly degraded by the breathing motion. Aorta and Great Vessel Origins: Multi branching pattern Right Cervical Carotid System: Patent There is 0 % stenosis of the carotid bulb by the NASCET criteria. Left Cervical Carotid System: Patent There is 0 % stenosis of the carotid bulb by the NASCET criteria. Vertebral Arteries: Patent bilaterally without significant abnormality within the limitation of the study. Other Findings: None. Head MRA: Diagnostic Quality: Adequate. Vertebrobasilar System: The distal intra-dural vertebral arteries are normal in appearance without significant stenosis. Carotid Arteries: The right internal carotid artery including the distal cervical, petrous, cavernous and supraclinoid segments are within normal limits with no apparent dissection, aneurysm or significant stenosis. The left internal carotid artery including the distal cervical, petrous, cavernous and supraclinoid segments are within normal limits with no apparent dissection, aneurysm or significant stenosis. [place] of [place] and Major Peripheral Branches: The right CONCEPCION and MCA as well as distal branches are within normal limits with no significant vascular stenosis, aneurysm or other vascular anomaly. The left CONCEPCION and MCA as well as distal branches are within normal limits with no significant vascular stenosis, aneurysm or other vascular anomaly. The basilar artery, posterior cerebral arteries, superior cerebellar arteries, and posterior-inferior cerebellar arteries are within normal limits. Other Findings: None. [facility], Rad In Fu ji [facility] - 09/15/2020 12:55 PM EST EXAMINATION: MRA COW/CAROTIDS/BRAIN WITH AND WITHOUT CONTRAST HISTORY: ORDERING SYSTEM PROVIDED HISTORY: Neuro deficit, acute, stroke suspected, TECHNOLOGIST PROVIDED HISTORY: Illness/Other Reason for exam: yesterday morning had paralysis left side of body, left sided face droop, numbness of face, swelling, had partial hysterectomy 1 month ago, slurred speech, lasted for about an hour after getting to ER Encounter Type: Initial Additional signs and symptoms: had migraine after incident, ORDERING SYSTEM PROVIDED DIAGNOSIS CODES: COMPARISON: None TECHNIQUE: Brain: multiplanar multiecho sequences were performed through the brain utilizing T1 and T2 weighting, as well as T2 gradient echo sequences, and axial diffusion weighted images. Neck MRA: 2-D and 3-D [id number] MR angiography were obtained through the neck and MIP images were created. Head MRA: 3-D [id number]-[id number] MR angiography was performed through the major intracranial vessels and MIP images were created. Carotid stenosis is reported according to NASCET criteria. CONTRAST: GADOTERATE MEGLUMINE 0.5 MMOL/ML (376.9 MG/ML) INTRAVENOUS SOLUTION - 13 mL, FINDINGS: Brain : Diagnostic quality: Adequate. The brain sulci and ventricles are within normal limits for patient age. There is no intraparenchymal mass, mass effect or midline shift is noted. No abnormal extra-axial fluid collections are seen. Basal cisterns are patent. The DWI images are slightly degraded by susceptibility artifact. However within the limitation of the study there is no definite acute infarction or intracranial hemorrhage. No abnormal enhancement is noted. Vascular Flow Voids: Normal. Paranasal Sinuses and Mastoid Air Cells: Grossly clear. Orbits: No definite masses within the limitations of the study. Extracranial Findings: None. Craniocervical Junction and Skull Base: No tonsillar ectopia or mass is present. Neck MRA: Diagnostic Quality: Slightly degraded by the breathing motion. Aorta and Great Vessel Origins: Multi branching pattern Right Cervical Carotid System: Patent There is 0 % stenosis of the carotid bulb by the NASCET criteria. Left Cervical Carotid System: Patent There is 0 % stenosis of the carotid bulb by the NASCET criteria. Vertebral Arteries: Patent bilaterally without significant abnormality within the limitation of the study. Other Findings: None. Head MRA: Diagnostic Quality: Adequate. Vertebrobasilar System: The distal intra-dural vertebral arteries are normal in appearance without significant stenosis. Carotid Arteries: The right internal carotid artery including the distal cervical, petrous, cavernous and supraclinoid segments are within normal limits with no apparent dissection, aneurysm or significant stenosis. The left internal carotid artery including the distal cervical, petrous, cavernous and supraclinoid segments are within normal limits with no apparent dissection, aneurysm or significant stenosis. [place] of [place] and Major Peripheral Branches: The right CONCEPCION and MCA as well as distal branches are within normal limits with no significant vascular stenosis, aneurysm or other vascular anomaly. The left CONCEPCION and MCA as well as distal branches are within normal limits with no significant vascular stenosis, aneurysm or other vascular anomaly. The basilar artery, posterior cerebral arteries, superior cerebellar arteries, and posterior-inferior cerebellar arteries are within normal limits. Other Findings: None. IMPRESSION: MR Brain: 1. No acute intracranial abnormality and no abnormal enhancement Neck MRA: 1. No significant carotid or vertebral arteries stenosis within the cervical region Head MRA: 1. No evidence of intracranial aneurysm, vascular malformation, significant stenosis or occlusion. [id number]: 1. No acut e intracranial abnormality and no abnormal enhancement Neck MRA: 1. No significant carotid or vertebral arteries stenosis within the cervical region Head MRA: 1. No evidence of intracranial aneurysm, vascular malformation, significant stenosis or occlusion. Workstation ID: [id number] [facility] MRA COW/CAROTIDS/BRAIN WITH AND WITHOUT CONTRASTon 09-15-2020 MRA COW/CAROTIDS/BRAIN WITH AND WITHOUT CONTRAST EXAMINATION: MRA COW/CAROTIDS/BRAIN WITH AND WITHOUT CONTRAST HISTORY: ORDERING SYSTEM PROVIDED HISTORY: Neuro deficit, acute, stroke suspected, TECHNOLOGIST PROVIDED HISTORY: Illness/Other Reason for exam: yesterday morning had paralysis left side of body, left sided face droop, numbness of face, swelling, had partial hysterectomy 1 month ago, slurred speech, lasted for about an hour after getting to ER Encounter Type: Initial Additional signs and symptoms: had migraine after incident, ORDERING SYSTEM PROVIDED DIAGNOSIS CODES: COMPARISON: None TECHNIQUE: Brain: multiplanar multiecho sequences were performed through the brain utilizing T1 and T2 weighting, as well as T2 gradient echo sequences, and axial diffusion weighted images. Neck MRA: 2-D and 3-D [id number] MR angiography were obtained through the neck and MIP images were created. Head MRA: 3-D [id number] MR angiography was performed through the major intracranial vessels and MIP images were created. Carotid stenosis is reported according to NASCET criteria. CONTRAST: GADOTERATE MEGLUMINE 0.5 MMOL/ML (376.9 MG/ML) INTRAVENOUS SOLUTION - 13 mL, FINDINGS: Brain : Diagnostic quality: Adequate. The brain sulci and ventricles are within normal limits for patient age. There is no intraparenchymal mass, mass effect or midline shift is noted. No abnormal extra-axial fluid collections are seen. Basal cisterns are patent. The DWI images are slightly degraded by susceptibility artifact. However within the limitation of the study there is no definite acute infarction or intracranial hemorrhage. No abnormal enhancement is noted. Vascular Flow Voids: Normal. Paranasal Sinuses and Mastoid Air Cells: Grossly clear. Orbits: No definite masses within the limitations of the study. Extracranial Findings: None. Craniocervical Junction and Skull Base: No tonsillar ectopia or mass is present. Neck MRA: Diagnostic Quality: Slightly degraded by the breathing motion. Aorta and Great Vessel Origins: Multi branching pattern Right Cervical Carotid System: Patent There is 0 % stenosis of the carotid bulb by the NASCET criteria. Left Cervical Carotid System: Patent There is 0 % stenosis of the carotid bulb by the NASCET criteria. Vertebral Arteries: Patent bilaterally without significant abnormality within the limitation of the study. Other Findings: None. Head MRA: Diagnostic Quality: Adequate. Vertebrobasilar System: The distal intra-dural vertebral arteries are normal in appearance without significant stenosis. Carotid Arteries: The right internal carotid artery including the distal cervical, petrous, cavernous and supraclinoid segments are within normal limits with no apparent dissection, aneurysm or significant stenosis. The left internal carotid artery including the distal cervical, petrous, cavernous and supraclinoid segments are within normal limits with no apparent dissection, aneurysm or significant stenosis. [place] of [place] and Major Peripheral Branches: The right CONCEPCION and MCA as well as distal branches are within normal limits with no significant vascular stenosis, aneurysm or other vascular anomaly. The left CONCEPCION and MCA as well as distal branches are within normal limits with no significant vascular stenosis, aneurysm or other vascular anomaly. The basilar artery, posterior cerebral arteries, superior cerebellar arteries, and posterior-inferior cerebellar arteries are within normal limits. Other Findings: None. IMPRESSION: MR Brain: 1. No acute intracranial abnormality and no abnormal enhancement Neck MRA: 1. No significant carotid or vertebral arteries stenosis within the cervical region Head MRA: 1. No evidence of intracranial aneurysm, vascular malformation, significant stenosis or occlusion. Workstation ID: [id number] Dictated by: HARVEY IBARRA on MonSep 15, 2020 12:53:17 PM EST Transcribed by: HARVEY IBARRA on MonSep 15, 2020 12:53:17 PM EST Finalized by: HARVEY IBARRA on MonSep 15, 2020 12:53:17 PM EST [facility] Comment on above: Order Comment: Injur y/Trauma or Illness?:Illness/Other How long have you had these symptoms (acute/chronic)?:Acute Reason for exam?:yesterday morning had paralysis left side of body, left sided face droop, numbness of face, swelling, had partial hysterectomy 1 month ago, slurred speech, lasted for about an hour after getting to ER Type of Exam?:Initial Additional signs and symptoms?:had migraine after incident, MRV BRAIN WITHOUT CONTRASTon 09-15-2020 MRV BRAIN WITHOUT CONTRAST EXAMINATION: MRV BRAIN WITHOUT CONTRAST HISTORY: headache Injury/Trauma or Illness?:Illness/Other How long have you had these symptoms (acute/chronic)?:Acute Reason for exam?: Yesterday morning had paralysis left side of body, left sided face droop, numbness of face, swelling, had partial hysterectomy 1 month ago, slurred speech, lasted for about an hour after getting to ER Type of Exam?:Initial Additional signs and symptoms?:. Injury/Trauma or Illness?:Illness/Other How long have you had these symptoms (acute/chronic)?:Acute COMPARISON: Recent MRI brain and MRA of the head and neck with contrast TECHNIQUE: Noncontrast oblique parasagittal TOF MR venography sequences were obtained. MIP images were created. FINDINGS: Diagnostic Quality: Adequate There is normal flow related enhancement of the superior sagittal, transverse and sigmoid sinuses with no filling defects to suggest thrombosis. However the left transverse, and sigmoid sinuses are hypoplastic. This was confirmed on the patient MRA of the head and neck and MRI brain with and without contrast that was done in the same date later. The straight sinus, Vein of Ciaran and deep venous system are grossly normal. IMPRESSION: No definite evidence of cerebral sinus thrombosis or occlusion. Workstation ID: [id number] Dictated by: HARVEY IBARRA on MonSep 15, 2020 12:58:01 PM EST Transcribed by: HARVEY IBARRA on MonSep 15, 2020 12:58:01 PM EST Finalized by: HARVEY IBARRA on MonSep 15, 2020 12:58:01 PM EST [facility] Comment on above: Order Comment: Injur y/Trauma or Illness?:Illness/Other How long have you had these symptoms (acute/chronic)?:Acute Reason for exam?:ester morning had paralysis left side of body, left sided face droop, numbness of face, swelling, had partial hysterectomy 1 month ago, slurred speech, lasted for about an hour after getting to ER Type of Exam?:Initial Additional signs and symptoms?:. MRV Brain Without Contraston 09-15-2020 Interface, Rad In Fu ji Speechq - 09/15/2020 1:00 PM EST EXAMINATION: MRV BRAIN WITHOUT CONTRAST HISTORY: headache Injury/Trauma or Illness?:Illness/Other How long have you had these symptoms (acute/chronic)?:Acute Reason for exam?: Yester morning had paralysis left side of body, left sided face droop, numbness of face, swelling, had partial hysterectomy 1 month ago, slurred speech, lasted for about an hour after getting to ER Type of Exam?:Initial Additional signs and symptoms?:. Injury/Trauma or Illness?:Illness/Other How long have you had these symptoms (acute/chronic)?:Acute COMPARISON: Recent MRI brain and MRA of the head and neck with contrast TECHNIQUE: Noncontrast oblique parasagittal TOF MR venography sequences were obtained. MIP images were created. FINDINGS: Diagnostic Quality: Adequate There is normal flow related enhancement of the superior sagittal, transverse and sigmoid sinuses with no filling defects to suggest thrombosis. However the left transverse, and sigmoid sinuses are hypoplastic. This was confirmed on the patient MRA of the head and neck and MRI brain with and without contrast that was done in the same date later. The straight sinus, Vein of Ciaran and deep venous system are grossly normal. IMPRESSION: No definite evidence of cerebral sinus thrombosis or occlusion. Workstation ID: [id number] [facility] EXAMINATION: MRV BRA IN WITHOUT CONTRAST HISTORY: headache Injury/Trauma or Illness?:Illness/Other How long have you had these symptoms (acute/chronic)?:Acute Reason for exam?: Yesterday morning had paralysis left side of body, left sided face droop, numbness of face, swelling, had partial hysterectomy 1 month ago, slurred speech, lasted for about an hour after getting to ER Type of Exam?:Initial Additional signs and symptoms?:. Injury/Trauma or Illness?:Illness/Other How long have you had these symptoms (acute/chronic)?:Acute COMPARISON: Recent MRI brain and MRA of the head and neck with contrast TECHNIQUE: Noncontrast oblique parasagittal TOF MR venography sequences were obtained. MIP images were created. FINDINGS: Diagnostic Quality: Adequate There is normal flow related enhancement of the superior sagittal, transverse and sigmoid sinuses with no filling defects to suggest thrombosis. However the left transverse, and sigmoid sinuses are hypoplastic. This was confirmed on the patient MRA of the head and neck and MRI brain with and without contrast that was done in the same date later. The straight sinus, Vein of Ciaran and deep venous system are grossly normal. [facility] No definite evidence of cerebral sinus thrombosis or occlusion. Workstation ID: [id number] [facility] Magnesiumon 09-15-2020 Interpretation and review of laboratory results Normal [facility] Magnesium [Mass/Vol] 2.2 mg/dL 1.6 - 2 .4 mg/dL [facility] Other 09-15-2020 Interpretation and review of laboratory results Abnormal [facility] Renal Function Panelon 09-15 Albumin [Mass/Vol] 3.6 g/dL 3.2 - 5.2 g/dL [facility] Anion gap [Moles/Vol] 11 mmol/L 10 - 2 0 mmol/L [facility] Calcium [Mass/Vol] 8.8 mg/dL 8.4 - 10. 2 mg/dL [facility] Chloride [Moles/Vol] 110 mmol/L High 98 - 10 8 mmol/L [facility] Creatinine [Mass/Vol] 0.64 mg/dL 0.40 - 1.10 [facility] GFR/1.73 sq M predicted among non-blacks MDRD (S/P/Bld) [Vol rate/Area] The eGFR should be used for monitoring renal function only and not for medication dosing. [facility] GFR/1.73 sq M.predicted CKD-EPI (S/P/Bld) [Vol rate/Area] 123 >=60 mL/min/1.73 m2 [facility] Glucose [Mass/Vol] 82 mg/dL 65 - 99 mg/dL [facility] HCO3 [Moles/Vol] 25 mmol/L 21 - 32 mmol/L [facility] Phosphate [Mass/Vol] 5.2 mg/dL High 2.7 - 4 .5 mg/dL [facility] Potassium [Moles/Vol] 3.7 mmol/L 3.5 - 5.1 mmol/L [facility] Sodium [Moles/Vol] 142 mmol/L 135 - 145 mmol/L [facility] Urea nitrogen [Mass/Vol] 11 mg/dL 8 - 25 mg/dL [facility] Urea nitrogen/Creatinine [Mass ratio] 17.2 mg/mg [facility] TSHon 09-15-2020 TSH Qn 0.13 m[IU]/L Low [facility] US DOPPLER CAROTIDon 020 US DOPPLER CAROTID Patient Info Name: SONIA SZYMANSKI Age: 25 years : 1995 Gender: Female Exam Date: 09/15/2020 7:23 AM Patient Status: Inpatient Cnc Applications Engineer: Wilbur Farnsworth, HAJA, LILIS Referring Physician: [id number] Herbert HANI, ; Indications G45.9 - Transient cerebral ischemic attack, unspecified - Stroke like symptoms Procedure Description 14040 Duplex examination using B-mode, color and spectral Doppler of extracranial arteries; complete bilateral study. NASCET criteria is used when performing imaging correlation with carotid duplex interpretation. Conclusions * Right. * No evidence of stenosis in the right internal carotid artery. * No evidence of stenosis in the right subclavian, common carotid and external carotid arteries. * Right vertebral artery is patent with antegrade flow. * Left. * No evidence of stenosis in the left internal carotid artery. * No evidence of stenosis in the left subclavian, common carotid and external carotid arteries. * Left vertebral artery is patent with antegrade flow. Recommendations * No indication for advanced imaging of carotid arteries based on above findings. Measurements - Name Value - Right PSV - Right Prox CCA PSV 58 cm/s Right Mid CCA PSV 72 cm/s Right Distal CCA PSV 74 cm/s Right Prox ICA PSV 50 cm/s Right Mid ICA PSV 55 cm/s Right Distal ICA PSV 56 cm/s Right ECA PSV 62 cm/s Right Vert PSV 44 cm/s BC PSV 81 cm/s Right Prox SCA PSV 124 cm/s Rt ICA/CCA Ratio 0.7 Measurements - Name Value - Right EDV - Right Prox CCA EDV 16 cm/s Right Mid CCA EDV 19 cm/s Right Distal CCA EDV 25 cm/s Right Prox ICA EDV 29 cm/s Right Mid ICA EDV 31 cm/s Right Distal ICA EDV 33 cm/s Right ECA EDV 17 cm/s Right Vert EDV 18 cm/s BC EDV 7 cm/s Right Prox SCA EDV 12 cm/s Measurements - Name Value - Left PSV - Left Prox CCA PSV 107 cm/s Left Mid CCA PSV 116 cm/s Left Distal CCA PSV 86 cm/s Left Prox ICA PSV 78 cm/s Left Mid ICA PSV 64 cm/s Left Distal ICA PSV 32 cm/s Left ECA PSV 82 cm/s Left Vert PSV 55 cm/s Left Prox SCA PSV 106 cm/s Lt ICA/CCA Ratio 0.9 Measurements - Name Value - Left EDV - Left Prox CCA EDV 29 cm/s Left Mid CCA EDV 31 cm/s Left Distal CCA EDV 31 cm/s Left Prox ICA EDV 36 cm/s Left Mid ICA EDV 35 cm/s Left ECA EDV 23 cm/s Left Vert EDV 26 cm/s Left Prox SCA EDV 31 cm/s Right Findings * No plaque noted in the right common carotid artery. * No plaque noted in the right internal carotid artery. * No plaque noted in the right external carotid artery. Left Findings * No plaque noted in the left common carotid artery. * No plaque noted in the left internal carotid artery. * No plaque noted in the left external carotid artery. Risk Factors Patient has no prior history. . Report Signatures Amended by Arnaldo Mathtew MD on 09/15/2020 08:45 AM Finalized by Arnaldo Matthew MD on 09/15/2020 08:44 AM Normal [facility] Interface, Rad In Heartlab Xper Echopacs - 09/15/2020 8:46 AM EST Patient Info Name: SONIA SZYMANSKI Age: 25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 episodes ofliquid stool daily, she cannot remember the last time she had a solid stool. Herstools smell bad. She is more bloated, some days she cannot wear her jeans. Shehas heartburn a couple times each week, uses TUMS, which does not relieve thepain. Has not tried any OTC PPIs.Objective:Componen t Latest Ref Rng AND Units 05/10/2017Celiac Risk Haplotype Negative NegativeHLA-DQA1 Genotype 01, 01HLA-DQB1 Genotype 05:01, 06:05Celiac Disease Risk The HLA-DQ genotype of the patient is not supportive of anincreased risk of . . .Celiac Category 0Gliadin Ab, IgA <20 Units 10Gliadin Ab, IgG <20 Units 2CRP <0.9 mg/dL 0.2IgA 78 - 391 mg/dL 326Transglutaminase Ab, IgA <20 Units 4Erythro Sed Rate 0 - 20 mm/hr 7Physical exam: DeferredImpression: Diarrhea - need to r/o microscopic colitisPlan: Colonoscopy with MAC - at [facility] next June 28 EGD with MAC CBC CMPThe majority of the visit was spent counseling and/or coordinating care for thepatient. Dfma-cd-iwpd time was 15 minutes.Omero Valentino, MDPrevious VersionLori GALVAN CNP 06/21/2017 10:11 AM AddendumColonoscopy with MAC - at [facility] - Miralax prepsheet given per patient requestEGD with MACCBCCMPGENERAL ANESTHESIAHow to Prepare for Your Colonoscopy Using Golytely, Nulytely, Trilyte, or ColytePreparationsIMPOR TANT - Please Read These Instructions at Least 2 Weeks Before YourColonoscopyKey Instructions:Your bowel must be empty so that your doctor can clearly view your colon. Followall of the instructions in this handout EXACTLY as they are written.If you do NOT follow the directions for when to start drinking the bowelpreparation (see next page), your colonoscopy WILL be cancelled.? Do NOT eat any solid food the ENTIRE day before your colonoscopy.? Buy your bowel preparation at least 5 days before your colonoscopy.? Do NOT mix the solution until the day before your colonoscopy.Designated Harnessmaker Apprentice on the Day of Your ExamA responsible family member or friend MUST come with you to your colonoscopy andREMAIN in the endoscopy area until you are discharged! You are NOT ALLOWED todrive, take a taxi or bus, or leave the Endoscopy Center ALONE.If you do not have a responsible driver/merchandiser (family member or friend) with you totake you home, your exam can not be done with sedation and will be cancelled.MedicationsSo me of the medicines you take may need to be stopped or adjusted before yourcolonoscopy.You MUST call the doctor who ordered any of the following medicines at least 2weeks before your colonoscopy.? Blood Thinners -- such as Coumadin? (warfarin), Plavix ? (clopidogrel), Ticlid? (ticlopidine hydrochloride), Agrylin ? (anagrelide), Xarelto (rivaroxaban),Pradaxa (dabigatran), and Effient (Prasugrel).? Insulin or diabetes pills. Please call the doctor that monitors your glucoselevels. Your insulin dosage may need to be adjusted due to diet restrictionsrequired with this bowel preparation. (Please bring your diabetes medicationswith you on the day of your procedure.)If you take aspirin, continue it and ALL other medications prescribed by yourdoctor. On the day of your colonoscopy, take your medications with a sip ofwater.Five (5) Days Before Your ColonoscopyDo NOT take medications that stop diarrhea-- such as Imodium?, Kaopectate?, orPepto Bismol?.Do NOT take fiber supplements--such as Metamucil?, Citrucel?, or Perdiem?.Do NOT take products that contain iron--such as multi-vitamins--(the label listswhat is in the products).Do NOT take vitamin E.Buy the prescription bowel preparation at your local pharmacy or drugstore.Three (3) Days Before Your ColonoscopyDo NOT eat high-fiber foods--such as popcorn, beans, seeds (flax, sunflower,quinoa), multigrain bread, nuts, salad/vegetables, or fresh and dried fruit.One (1) Day Before Your ColonoscopyOnly drink clear liquids the ENTIRE DAY before your colonoscopy. Do NOT eat anysolid foods. Drink at least 8 ounces of clear liquids every hour after wakingup. The clear liquids you can drink include:? water, apple or white grape juice; broth; coffee or tea (without milk orcreamer); clear carbonated beverages such as jocelyn sarthak or lemon-salt river soda;Gatorade? or other sports drinks (not red); Jurgen-Aid? or other flavored drinks(not red); plain jello or other gelatins (not red); popsicles (not red)? Do NOT drink alcohol on the day before or the day of the procedure.When to Mix and Drink Your Bowel PreparationFollow the instructions on the label. After mixing, place the solution in therefrigerator for a couple of hours before drinking. You may add the flavorpacket that came with the bowel preparation. DO NOT add ice, sugar or anyflavorings to the solution.Evening before ColonoscopyStart drinking the bowel preparation at 6 PM the evening before yourcolonoscopy. Drink an 8 oz glass of bowel preparation every 10 minutes. You mustfinish drinking the solution by 9 PM the night before your scheduled procedure.You may continue to drink clear liquids only until midnight.Do NOT eat or drink ANYTHING after midnight the night before your procedure, oryour procedure may be cancelled. This is for your safety and will reduce therisk of having any food or liquid in your stomach move into your lungs(aspiration) during a procedure. If you take aspirin, take it and ALL otherprescribed medicines with a sip of water on the day of your colonoscopy.Contact InformationIf you are unable to keep your appointment or have any questions about theinstructions, please call the facility where the procedure is being performed.Call between the hours of 8:00 AM and 5:00 PM. If you are calling after 5:00 PM,please call Nurse consulting technical director at [phone].COLONOSCOP Y PROCEDURE OVERVIEWPlease read prior to the procedureWhat is a Colonoscopy?A colonoscopy is an outpatient procedure in which the inside of the largeintestine (colon and rectum) is examined. A colonoscopy is commonly used toevaluate gastrointestinal symptoms, such as rectal and intestinal bleeding,abdominal pain, or changes in bowel habits. Colonoscopies are also performed inindividuals without symptoms to check for colorectal polyps or cancer. Ascreening colonoscopy is recommended for anyone 50 years of age and older, andfor anyone with parents, siblings or children with a history of colorectalcancer or polyps.What happens before a colonoscopy?To have a successful colonoscopy, your bowel must be empty so that yourphysician can clearly view the colon. To do this, it is very important to readand follow all of the instructions given to you at least 2 weeks BEFORE yourexam.If your bowel is not empty, your colonoscopy will not be successful and may haveto be repeated.If you feel nauseated or vomit while taking the bowel preparation, wait 30minutes before drinking more fluid and start with small sips of solution. Someactivity (such as walking) or a few soda crackers may help decrease the nauseayou are feeling. If the nausea persists, please contact nurse real estate transaction coordinator [phone].You may experience skin irritation around the anus due to the passage of liquidstools. To prevent and treat skin irritation, you should: Apply Vaseline orDesitin ointment to the skin around the anus before drinking the bowelpreparation medications. These products can be purchased at any drug store. Wipethe skin after each bowel movement with disposable wet wipes instead of toiletpaper. These are found in the toilet paper area of the store. Sit in a bathtubfilled with warm water for 10 to 15 minutes after you finish passing a stool;after soaking, blot the skin dry with a soft cloth, apply Vaseline or Desitinointment to the anal area, and place a cotton ball just outside your anus toabsorb leaking fluid.What happens during a colonoscopy?During a colonoscopy, an experienced physician uses a colonoscope (a long,flexible instrument about 1/2 inch in diameter) to view the lining of the colon.The colonoscope is inserted into the rectum and advanced through the largeintestine. If necessary during a colonoscopy, small amounts of tissue can beremoved for analysis (a biopsy) and polyps can be identified and entirelyremoved. In many cases, a colonoscopy allows accurate diagnosis and treatment ofcolorectal problems without the need for a major operation.You are asked to wear a hospital gown and an IV will be started.You are given a pain reliever and a sedative intravenously (in your vein). Youwill feel relaxed and somewhat drowsy. You will lie on your left side, with yourknees drawn up towards your chest. A small amount of air is used to expand thecolon so the physician can see the colon medina. You may feel mild crampingduring the procedure. Cramping can be reduced by taking slow, deep breaths.The colonoscope is slowly withdrawn while the lining of your bowel is carefullyexamined.The procedure lasts from 30 minutes to 1 hour.What happens after a colonoscopy?You will stay in a recovery room for observation until you are ready fordischarge.You may feel some cramping or a sensation of having gas, but this quicklypasses.If sedation has been given, a responsible driver/merchandiser (a family member or friend)must drive you home.Avoid alcohol, driving, and operating machinery for 24 hours following theprocedure.Unless otherwise instructed, you may immediately return to your normal diet. Werecommend you wait until the day after your procedure to resume normalactivities.If polyps were removed or a biopsy was taken, the physician performing yourcolonoscopy will tell you when it is safe to resume taking your blood thinners.If a biopsy was taken or a polyp was removed, you may notice a little amount ofrectal bleeding for 1 to 2 days after the procedure. If you have a large amountof rectal bleeding, high or persistent fevers, or severe abdominal pain withinthe next 2 weeks, please go to your local emergency room and call the physicianwho performed your exam.Previous VersionProgress Notes ([facility]):Leatha Quinteros LPN 06/19/2017 2:58 PM Signed----- Message from Oliver Sequeira sent at 06/19/2017 2:51 PM EDT -----Please forward a copy of the report to the patient. Thanks, Segun Beltran LPN 06/19/2017 2:59 PM SignedResults from Lactose Breath Test were mailed to the patient as directed by Ida.Leatha Quinteros LPN [facility] CBCon 06-21-2017 Erythrocyte distribution width Auto Ratio (RBC) 14.0 % Normal 11.5-15.0 [facility] Comment on above: Performed By: #### C BC, CMP ####[address] [phone] Erythrocytes (RBC) 4.58 10*6/uL Normal 3.90-5.20 [facility] Comment on above: Performed By: #### C BC, CMP ####[facility] [place], [place] [phone] Erythrocytes (RBC) 0.00 10*6/uL Normal 0.00 [facility] Comment on above: Performed By: #### C BC, CMP ####[facility] [place], [place] [phone] Hematocrit (HCT) 38.3 % Normal 36.0-46.0 [facility] Comment on above: Performed By: #### C BC, CMP ####[address] [phone] Hemoglobin mass conc (Bld) 12.2 g/dL Normal 11.5-15.5 [facility] Comment on above: Performed By: #### C BC, CMP ####[place] [address] [place], [place] [phone] MCH 26.6 pG Normal 26.0-34.0 [facility] Comment on above: Performed By: #### C BC, CMP ####[address] [phone] MCHC mass conc (RBC) 31.9 g/dL Normal 30.5-36.0 [facility] Comment on above: Performed By: #### C BC, CMP ####[address] [phone] MCV 83.6 fL Normal 80.0-100.0 [facility] Comment on above: Performed By: #### C BC, CMP ####[address] [phone] Platelet mean volume (PMV) 10.6 fL Normal 9.0-12.7 [facility] Comment on above: Performed By: #### C BC, CMP ####[address] [phone] Platelets 367 10*3/uL Normal 150-400 [facility] Comment on above: Performed By: #### C BC, CMP ####[address] [phone] WBC (Leukocytes) 7.62 10*3/uL Normal 3.70-11.00 [facility] Comment on above: Performed By: #### C BC, CMP ####[address] [phone] Comp Metabolic Panelon 06-21 Alanine aminotransferase (ALT) 5 U/L Low 7-38 [facility] Comment on above: Performed By: #### C BC, CMP ####[address] [phone] Albumin 4.3 g/dL Normal 3.9-4.9 [facility] Comment on above: Performed By: #### C BC, CMP ####[place] [address] [place] [phone] Alkaline phosphatase (ALP) 61 U/L Normal 32-117 [facility] Comment on above: Performed By: #### C BC, CMP ####[place] [address] [place] [phone] Anion gap 13 mmol/L Normal 9-18 [facility] Comment on above: Performed By: #### C BC, CMP ####[place] [phone] Aspartate aminotransferase (AST) 17 U/L Normal 13-35 [facility] Comment on above: Performed By: #### C BC, CMP ####[place] [phone] Bilirubin (total) 0.8 mg/dL Normal 0.2-1.3 [facility] Comment on above: Performed By: #### C BC, CMP ####[place] [phone] Calcium 9.3 mg/dL Normal 8.5-10.2 [facility] Comment on above: Performed By: #### C BC, CMP ####[place] [address] [place] [phone] Chloride 101 mmol/L Normal 97-105 [facility] Comment on above: Performed By: #### C BC, CMP ####[place] [address] [place] [phone] CO2 25 mmol/L Normal 22-30 [facility] Comment on above: Performed By: #### C BC, CMP ####[place] [address] [place] [phone] Creatinine 0.68 mg/dL Normal 0.58-0.96 [facility] Comment on above: Performed By: #### C BC, CMP ####[facility] [place], [place] [phone] eGFR (non-black) mL/min/{1.73_m2} Normal So [facility] Comment on above: Result Comment: eGFR (Estimated GFR) Units of measure: mL/min/1.73 meters squaredeGFR is derived from the reexpressed MDRD Study equation using the following parameters: serum creatinine, age, gender and race. The creatinine assay has been calibrated to be traceable to IDMS.An eGFR <60 mL/min/1.73m2 for >3 months is consistent with chronic kidney disease. Refer to KDOQI guidelines for clinical interpretation.In patients with unstable renal function, e.g. those with acute kidney injury, the eGFR may not accurately reflect actual GFR. Performed By: #### C BC, CMP ####[place] [id number] [place], [place] [phone] Glucose mass conc 80 mg/dL Normal 74-99 [facility] Comment on above: Result Comment: The [place] Diabetes Association (ADA) provides guidance for cutoff values for fasting glucose and random glucose. The ADA defines fasting as no caloric intake for at least 8 hours. Fasting plasma glucose results between 100 to 125 mg/dL indicate increased risk for diabetes (prediabetes).Fasting plasma glucose results greater than or equal to 126 mg/dL meet the criteria for diagnosis of diabetes. In the absence of unequivocal hyperglycemia, results should be confirmed by repeat testing. In a patient with classic symptoms of hyperglycemia or hyperglycemic crisis, random plasma glucose results greater than or equal to 200 mg/dL meet the criteria for diagnosis of diabetes.Reference: Standards of Medical Care in Diabetes 2016, [place] [employer]. Diabetes Care. 2016.39(Suppl 1). Performed By: #### C BC, CMP ####[facility] [place], [place] [phone] Potassium molar conc 4.1 mmol/L Normal 3.7-5.1 [facility] Comment on above: Performed By: #### C BC, CMP ####[address], [place] [phone] Protein 6.9 g/dL Normal 6.3-8.0 [facility] Comment on above: Performed By: #### C BC, CMP ####[facility] [place], [place] [phone] Sodium 139 mmol/L Normal 136-144 [facility] Comment on above: Performed By: #### C BC, CMP ####[facility] [place], [place] [phone] Urea nitrogen 7 mg/dL Normal 7-21 [facility] Comment on above: Performed By: #### C RENÉE, CMP ####[place] [id number] [place], [place] [phone] [place] Dis[place] Summaryon 05-20-2017 [place] Discharge Summary Normal Counts Include [facility] ([place] .Auto Diffon 05-19-2017 Basophils Auto #/vol (Bld) 0.00 10 3/mcL Normal 0.00-0.19 Counts Include [facility] ([place] Comment on above: Performed By: #### C BC, ADIFF, ANEU, TROP, BMP, GFR ####[address] [place], [place] [address] Basophils/100 WBC Auto (Bld) 0.4 % Normal 0.0-2.5 Counts Include [address] [facility] ([place] Comment on above: Performed By: #### C BC, ADIFF, ANEU, TROP, BMP, GFR ####[address] [place], [place] [address] Eosinophils 0.10 10 3/mcL Normal 0.00-0.40 Counts Include [address] [facility] ([place] Comment on above: Performed By: #### C BC, ADIFF, ANEU, TROP, BMP, GFR ####[address] [place], [place] [address] Eosinophils/100 leukocytes 1.1 % Normal 0.0-7.0 Counts Include [facility] ([place] Comment on above: Performed By: #### C BC, ADIFF, ANEU, TROP, BMP, GFR ####[address] [place], [place] [address] Lymphocytes 3.60 10 3/mcL Normal 0.77-3.85 Counts Include [facility] ([place] Comment on above: Performed By: #### C BC, ADIFF, ANEU, TROP, BMP, GFR ####[address] [place], [place] [address] Lymphocytes/100 leukocytes 46.8 % Normal 10.0-50.0 Counts Include [address] [facility] ([place] Comment on above: Performed By: #### C BC, ADIFF, ANEU, TROP, BMP, GFR ####[address] [place], [place] [address] Monocytes 0.90 10 3/mcL Normal 0.15-1.00 Counts Include [address] [facility] ([place] Comment on above: Performed By: #### C BC, ADIFF, ANEU, TROP, BMP, GFR ####[address] [place], [place] [address] Monocytes/100 leukocytes 11.3 % Normal 1.7-13.0 Counts Include [address] [facility] ([place] Comment on above: Performed By: #### C BC, ADIFF, ANEU, TROP, BMP, GFR ####[address] [place], [place] [address] Neutrophils/100 WBC Auto (Bld) 40.4 % Normal 37.0-80.0 Counts Include [address] [facility] ([place] Comment on above: Performed By: #### C BC, ADIFF, ANEU, TROP, BMP, GFR ####[address] [place], [place] [address] .NEUABSon 05-19-2017 Neutrophils 3.10 10 3/mcL Normal 2.85-6.16 Counts Include [address] [facility] ([place] Comment on above: Performed By: #### C BC, ADIFF, ANEU, TROP, BMP, GFR ####[address] [place], [place] [address] BMPon 05-19-2017 BUN/Creatinine Ratio 14 ratio Normal 7-27 [facility] ([place]) Comment on above: Performed By: #### C BC, ADIFF, ANEU, TROP, BMP, GFR ####[address] [place], [place] [address] Calcium 9.0 mg/dL Normal 8.4-10.2 Counts Include [address] [facility] ([place] Comment on above: Performed By: #### C BC, ADIFF, ANEU, TROP, BMP, GFR ####[address] [place], [place] [address] Chloride 107 mmol/L Normal 98-107 Counts Include [address] [facility] ([place] Comment on above: Performed By: #### C BC, ADIFF, ANEU, TROP, BMP, GFR ####[address] [place], [place] [address] CO2 24 mmol/L Normal 22-29 Counts Include [address] [facility] ([place] Comment on above: Performed By: #### C BC, ADIFF, ANEU, TROP, BMP, GFR ####[address] [place], [place] [address] Creatinine 0.7 mg/dL Normal 0.6-1.2 Counts Include [address] [facility] ([place] Comment on above: Performed By: #### C BC, ADIFF, ANEU, TROP, BMP, GFR ####[address] [place], [place] [address] Electrolyte Balance 8.0 mEq/L Normal [facility] ([place]) Comment on above: Performed By: #### C BC, ADIFF, ANEU, TROP, BMP, GFR ####[address] [place], [place] [address] Glucose mass conc 93 mg/dL Normal 70-105 Counts Include [address] [facility] ([place] Comment on above: Performed By: #### C BC, ADIFF, ANEU, TROP, BMP, GFR ####[address] [place], [place] [address] Potassium molar conc 4.2 mmol/L Normal 3.5-5.1 [facility] ([place] Comment on above: Performed By: #### C BC, ADIFF, ANEU, TROP, BMP, GFR ####[address] [place], [place] [address] Sodium 139 mmol/L Normal 136-146 Counts Include [address] [facility] ([place] Comment on above: Performed By: #### C BC, ADIFF, ANEU, TROP, BMP, GFR ####[address] [place], [place] [address] Urea nitrogen 10.1 mg/dL Normal 7.0-18.0 Counts Include [address] [facility] ([place] Comment on above: Performed By: #### C BC, ADIFF, ANEU, TROP, BMP, GFR ####[address] [place], [place] [address] CBCon 05-19-2017 Erythrocyte distribution width Auto Ratio (RBC) 13.2 % Normal 11.5-14.5 Counts Include [address] [facility] ([place] Comment on above: Performed By: #### C BC, ADIFF, ANEU, TROP, BMP, GFR ####[address] [place], [place] [address] Erythrocytes (RBC) 4.53 10 6/mcL Normal 4.20-5.40 [facility] ([place]) Comment on above: Performed By: #### C BC, ADIFF, ANEU, TROP, BMP, GFR ####[address] [place], [place] [address] Hematocrit (HCT) 35.8 % Low 37.0-47.0 Counts Include [address] [facility] ([place] Comment on above: Performed By: #### C BC, ADIFF, ANEU, TROP, BMP, GFR ####[address] [place], [place] [address] Hemoglobin mass conc (Bld) 11.5 G/dL Low 12.0-16.0 Counts Include [address] [facility] ([place] Comment on above: Performed By: #### C BC, ADIFF, ANEU, TROP, BMP, GFR ####[address] [place], [place] [address] MCH 25.5 pg Low 27.0-31.2 Counts Include [address] [facility] ([place] Comment on above: Performed By: #### C BC, ADIFF, ANEU, TROP, BMP, GFR ####[address] [place], [place] [address] MCHC mass conc (RBC) 32.3 G/dL Low 33.0-37.0 [facility] ([place] Comment on above: Performed By: #### C BC, ADIFF, ANEU, TROP, BMP, GFR ####[address] [place], [place] [address] MCV 79.1 fL Low 80.0-94.0 Counts Include [address] [facility] ([place] Comment on above: Performed By: #### C BC, ADIFF, ANEU, TROP, BMP, GFR ####[address] [place], [place] [address] Platelet mean volume (PMV) 8.4 fL Normal 7.4-10.4 Counts Include [address] [facility] ([place] Comment on above: Performed By: #### C BC, ADIFF, ANEU, TROP, BMP, GFR ####[address] [place], [place] [address] Platelets 286 10 3/mcL Normal 130-400 Counts Include [address] [facility] ([place] Comment on above: Performed By: #### C BC, ADIFF, ANEU, TROP, BMP, GFR ####[address] [place], [place] [address] WBC (Leukocytes) 7.60 10 3/mcL Normal 4.60-10.80 [facility] ([place] Comment on above: Performed By: #### C BC, ADIFF, ANEU, TROP, BMP, GFR ####[address] [place], [place] [address] Depart Summaryon 05-19-2017 Depart Summary Normal Counts Include [address] [facility] ([place] GFRon 05-19-2017 eGFR (non-black) 116 ml/min/1.73sqm Normal Counts Include [address] [facility] ([place] Comment on above: Result Comment: GFR Population mean for , Non- Americans Ages 20-29 = 116 mL/min/1.73 sq.m. Ages 30-39 = 107 mL/min/1.73 sq.m. Ages 40-49 = 99 mL/min/1.73 sq.m. Ages 50-59 = 93 mL/min/1.73 sq.m. Ages 60-69 = 85 mL/min/1.73 sq.m. Ages 70+ = 75 mL/min/1.73 sq.m.Chronic Kidney Disease: Less than 60 mL/min/1.73 square metersEnd Stage Renal Disease: Less than 15 mL/min/1.73 square meters Performed By: #### C BC, ADIFF, ANEU, TROP, BMP, GFR ####[address] [place], [place] [address] eGFR (non-black) mL/min/{1.73_m2} Normal [facility] ([place]) Comment on above: Result Comment: GFR Population mean for , Non- Americans Ages 20-29 = 116 mL/min/1.73 sq.m. Ages 30-39 = 107 mL/min/1.73 sq.m. Ages 40-49 = 99 mL/min/1.73 sq.m. Ages 50-59 = 93 mL/min/1.73 sq.m. Ages 60-69 = 85 mL/min/1.73 sq.m. Ages 70+ = 75 mL/min/1.73 sq.m.Chronic Kidney Disease: Less than 60 mL/min/1.73 square metersEnd Stage Renal Disease: Less than 15 mL/min/1.73 square meters Performed By: #### C BC, ADIFF, ANEU, TROP, BMP, GFR ####[address] [place], [place] [address] MGon 05-19-2017 Magnesium 1.8 mg/dL Normal 1.7-2.5 Counts Include [address] [facility] ([place] Comment on above: Performed By: #### C BC, ADIFF, ANEU, TROP, BMP, GFR ####[address] [place], [place] [address] [place] History and Physica florencio 05-19-2017 [place] History and Physical Normal Counts Include [address] [facility] ([place]) [place] Inpatient Patient S ummaryon 05-19-2017 [place] Inpatient Patient Summary Normal Counts Include [address] [facility] ([place] Progress Note-Nurseon 2016 Progress Note-Nurse Normal [facility] ([place] Progress Note-Nurse Normal [facility] ([place] Progress Note-Nurse Normal [facility] ([place] .Auto Diffon 05-18-2017 Basophils Auto #/vol (Bld) 0.00 10 3/mcL Normal 0.00-0.19 Counts Include [address] [facility] ([place] Comment on above: Performed By: #### C BC, ADIFF, ANEU, TROP, BMP, GFR ####[address] [place], [place] [address] Basophils/100 WBC Auto (Bld) 0.5 % Normal 0.0-2.5 Counts Include [address] [facility] ([place] Comment on above: Performed By: #### C BC, ADIFF, ANEU, TROP, BMP, GFR ####[address] [place], [place] [address] Eosinophils 0.00 10 3/mcL Normal 0.00-0.40 Counts Include [address] [facility] ([place] Comment on above: Performed By: #### C BC, ADIFF, ANEU, TROP, BMP, GFR ####[address] [place], [place] [address] Eosinophils/100 leukocytes 0.5 % Normal 0.0-7.0 Counts Include [address] [facility] ([place] Comment on above: Performed By: #### C BC, ADIFF, ANEU, TROP, BMP, GFR ####[address] [place], [place] [address] Lymphocytes 2.40 10 3/mcL Normal 0.77-3.85 Counts Include [address] [facility] ([place] Comment on above: Performed By: #### C BC, ADIFF, ANEU, TROP, BMP, GFR ####[address] [place], [place] [address] Lymphocytes/100 leukocytes 29.9 % Normal 10.0-50.0 Counts Include [address] [facility] ([place] Comment on above: Performed By: #### C BC, ADIFF, ANEU, TROP, BMP, GFR ####[address] [place], [place] [address] Monocytes 0.80 10 3/mcL Normal 0.15-1.00 Counts Include [address] [facility] ([place] Comment on above: Performed By: #### C BC, ADIFF, ANEU, TROP, BMP, GFR ####[address] [place], [place] [address] Monocytes/100 leukocytes 9.3 % Normal 1.7-13.0 Counts Include [address] [facility] ([place] Comment on above: Performed By: #### C BC, ADIFF, ANEU, TROP, BMP, GFR ####[address] [place], [place] [address] Neutrophils/100 WBC Auto (Bld) 59.8 % Normal 37.0-80.0 Counts Include [address] [facility] ([place] Comment on above: Performed By: #### C BC, ADIFF, ANEU, TROP, BMP, GFR ####[address] [place], [place] [address] .NEUABSon 05-18-2017 Neutrophils 4.80 10 3/mcL Normal 2.85-6.16 Counts Include [address] [facility] ([place] Comment on above: Performed By: #### C BC, ADIFF, ANEU, TROP, BMP, GFR ####[address] [place], [place] [address] .Urinalysis Microscopic (AO) on 05-18-2017 UA Squam Epithelial None Seen Normal None Seen [facility] ([place] Comment on above: Performed By: #### U A, UAMICAO, PREGU ####[address] [place], [place] [address] UA WBC None Seen Normal None Seen Counts Include [address] [facility] ([place] Comment on above: Performed By: #### U A, UAMICAO, PREGU ####[address] [place], [place] [address] Urine, erythrocytes None Seen Normal None Seen [facility] ([place] Comment on above: Performed By: #### U A, UAMICAO, PREGU ####[address] [place], [place] [address] Admission Note-Nursingon Admission Note-Nursing Normal [facility] ([place]) BMPon 05-18-2017 BUN/Creatinine Ratio 14 ratio Normal 05-18 [facility]) Comment on above: Performed By: #### C BC, ADIFF, ANEU, TROP, BMP, GFR ####[address] [place], [place] [address] Calcium 9.8 mg/dL Normal 8.4-10.2 Counts Include [address] [facility] ([place] Comment on above: Performed By: #### C BC, ADIFF, ANEU, TROP, BMP, GFR ####[address] [place], [place] [address] Chloride 101 mmol/L Normal 98-107 Counts Include [address] [facility] ([place] Comment on above: Performed By: #### C BC, ADIFF, ANEU, TROP, BMP, GFR ####[address] [place], [place] [address] CO2 25 mmol/L Normal 22-29 Counts Include [address] [facility] ([place] Comment on above: Performed By: #### C BC, ADIFF, ANEU, TROP, BMP, GFR ####[address] [place], [place] [address] Creatinine 0.7 mg/dL Normal 0.6-1.2 Counts Include [address] [facility] ([place] Comment on above: Performed By: #### C BC, ADIFF, ANEU, TROP, BMP, GFR ####[address] [place], [place] [address] Electrolyte Balance 10.0 mEq/L Normal [facility] ([place] Comment on above: Performed By: #### C BC, ADIFF, ANEU, TROP, BMP, GFR ####[address] [place], [place] [address] Glucose mass conc 85 mg/dL Normal 70-105 Counts Include [address] [facility] ([place] Comment on above: Performed By: #### C BC, ADIFF, ANEU, TROP, BMP, GFR ####[address] [place], [place] [address] Potassium molar conc 3.9 mmol/L Normal 3.5-5.1 [facility] ([place] Comment on above: Performed By: #### C BC, ADIFF, ANEU, TROP, BMP, GFR ####[address] [place], [place] [address] Sodium 136 mmol/L Normal 136-146 Counts Include [address] [facility] ([place] Comment on above: Performed By: #### C BC, ADIFF, ANEU, TROP, BMP, GFR ####[address] [place], [place] [address] Urea nitrogen 9.5 mg/dL Normal 7.0-18.0 Counts Include [address] [facility] ([place] Comment on above: Performed By: #### C BC, ADIFF, ANEU, TROP, BMP, GFR ####[address] [place], [place] [address] CBCon 05-18-2017 Erythrocyte distribution width Auto Ratio (RBC) 13.3 % Normal 11.5-14.5 Counts Include [address] [facility] ([place] Comment on above: Performed By: #### C BC, ADIFF, ANEU, TROP, BMP, GFR ####[address] [place], [place] [address] Erythrocytes (RBC) 4.92 10 6/mcL Normal 4.20-5.40 [facility] ([place] Comment on above: Performed By: #### C BC, ADIFF, ANEU, TROP, BMP, GFR ####[address] [place], [place] [address] Hematocrit (HCT) 38.4 % Normal 37.0-47.0 Counts Include [address] [facility] ([place] Comment on above: Performed By: #### C BC, ADIFF, ANEU, TROP, BMP, GFR ####[address] [place], [place] [address] Hemoglobin mass conc (Bld) 12.6 G/dL Normal 12.0-16.0 Counts Include [address] [facility] ([place] Comment on above: Performed By: #### C BC, ADIFF, ANEU, TROP, BMP, GFR ####[address] [place], [place] [address] MCH 25.7 pg Low 27.0-31.2 Counts Include [address] [facility] ([place] Comment on above: Performed By: #### C BC, ADIFF, ANEU, TROP, BMP, GFR ####[address] [place], [place] [address] MCHC mass conc (RBC) 32.8 G/dL Low 33.0-37.0 [facility] ([place] Comment on above: Performed By: #### C BC, ADIFF, ANEU, TROP, BMP, GFR ####[address] [place] [id number] MCV 78.2 fL Low 80.0-94.0 Counts Include [address] [facility] ([place] Comment on above: Performed By: #### C BC, ADIFF, ANEU, TROP, BMP, GFR ####[address] [place], [place] [address] Platelet mean volume (PMV) 7.9 fL Normal 7.4-10.4 Counts Include [address] [facility] ([place] Comment on above: Performed By: #### C BC, ADIFF, ANEU, TROP, BMP, GFR ####[address] [place], [place] [address] Platelets 317 10 3/mcL Normal 130-400 Counts Include [address] [facility] ([place] Comment on above: Performed By: #### C BC, ADIFF, ANEU, TROP, BMP, GFR ####[address] [place], [place] [address] WBC (Leukocytes) 8.10 10 3/mcL Normal 4.60-10.80 [facility] ([place] Comment on above: Performed By: #### C BC, ADIFF, ANEU, TROP, BMP, GFR ####[address] [place], [place] [address] CT HEAD OR BRAIN W/O CONTRAS Ton 05-18-2017 CT HEAD OR BRAIN W/O CONTRAST ORIGINALCT HEAD OR BRAIN W/O CONTRAST CLINICAL STATEMENT: dizziness COMPARISON: None FINDINGS: This exam was performed according to our departmental dose-optimization program which includes automated exposure control, adjustment of the mA and/or kVp according to patient size and/or use of iterative reconstruction technique where applicable. The ventricles and cisternal spaces are normal. No hemorrhage, mass effect or midline shift seen. No extra-axial fluid collection or mass identified. The mastoids are aerated. Sinuses are clear. No destructive osseous lesion identified. IMPRESSION: No hemorrhage or territorial infarct Interpreted By: Werner Watsonreliminary Report By: Werner Watson MDElectronically Signed By: Werner Watson MD Dictated Date: 05/18/2017 11:55:50 AM Prelim Date: 05/18/2017 11:55:50 AM Sign Date: 05/18/2017 11:57:12 AM Normal Counts Include [address] [facility] ([place] GFRon 05-18-2017 eGFR (non-black) mL/min/{1.73_m2} Normal [facility] ([place] Comment on above: Result Comment: GFR Population mean for , Non- Americans Ages 20-29 = 116 mL/min/1.73 sq.m. Ages 30-39 = 107 mL/min/1.73 sq.m. Ages 40-49 = 99 mL/min/1.73 sq.m. Ages 50-59 = 93 mL/min/1.73 sq.m. Ages 60-69 = 85 mL/min/1.73 sq.m. Ages 70+ = 75 mL/min/1.73 sq.m.Chronic Kidney Disease: Less than 60 mL/min/1.73 square metersEnd Stage Renal Disease: Less than 15 mL/min/1.73 square meters Performed By: #### C BC, ADIFF, ANEU, TROP, BMP, GFR ####[address] [place], [place] [address] eGFR (non-black) 123 ml/min/1.73sqm Normal Counts Include [address] [facility] ([place] Comment on above: Result Comment: GFR Population mean for , Non- Americans Ages 20-29 = 116 mL/min/1.73 sq.m. Ages 30-39 = 107 mL/min/1.73 sq.m. Ages 40-49 = 99 mL/min/1.73 sq.m. Ages 50-59 = 93 mL/min/1.73 sq.m. Ages 60-69 = 85 mL/min/1.73 sq.m. Ages 70+ = 75 mL/min/1.73 sq.m.Chronic Kidney Disease: Less than 60 mL/min/1.73 square metersEnd Stage Renal Disease: Less than 15 mL/min/1.73 square meters Performed By: #### C BC, ADIFF, ANEU, TROP, BMP, GFR ####[address] [place], [place] [address] [place] [facility] Note on 05-18-2017 [place] [facility] Note Normal Counts Include [address] [facility] ([place] PREGUon 05-18-2017 HCG ( test) Ql (U) Negative Normal Counts Include [address] ([place] Comment on above: Performed By: #### U ASHKAN Najera PREGU ####[address] [place], [place] [address] test (u) int HCG not detected. Invalid Interpretation Code Counts Include [address] [facility] ([place] Comment on above: Performed By: #### U A, UAMICAO, PREGU ####[address] [place], [place] [address] Patient Summary Documentson 05-18-2017 Patient Summary Documents Normal Counts Include [address] [facility] ([place] Progress Note-Nurseon 2016 Progress Note-Nurse Normal [facility] ([place] TROPon 05-18-2017 Troponin I.cardiac mass conc ng/mL Normal 0.00-0.30 Counts Include [address] [facility] ([place] Comment on above: Result Comment: Belo w measuring range>=0.30 Consistent with cardiac damage, increased clinical risk and possibility of myocardial infarction. Serial measurements, clinical history, appropriate symptoms and/or ECG changes may help assess possibility of MA.*Other non-acute coronary syndrome conditions such as CHF, myocarditis, pulmonary emboli, sepsis and cardiac surgery could result in myocardial damage and increased troponin levels. Performed By: #### C BC, ADIFF, ANEU, TROP, BMP, GFR ####[address] [place] [address] UAon 05-18-2017 UA Appear CLEAR Normal Counts Include [address] [facility] ([place] Comment on above: Performed By: #### U A, UAMICAO, PREGU ####[address] [place] [address] UA Blood TRACE-INTACT Normal Counts Include [address] [facility] ([place] Comment on above: Performed By: #### U A, UAMICAO, PREGU ####[address] [place] [address]37 UA Leuk Est Negative [facility] ([place]) Comment on above: Performed By: #### U A, UAMICAO, PREGU ####[address] [place], [place] [address] UA Nitrite Negative [facility] ([place] Comment on above: Performed By: #### U A, UAMICAO, PREGU ####[address] [place], [place] [address] UA pH 6.5 [facility] ([place] Comment on above: Performed By: #### U A, UAMICAO, PREGU ####[address] [place], [place] [address] UA Protein Negative Normal Counts Include [address] [facility] ([place] Comment on above: Performed By: #### U A, UAMICAO, PREGU ####[address] [place] [address] UA Spec Grav 1.010 Abnormal Counts Include [address] [facility] ([place] Comment on above: Performed By: #### U A, UAMICAO, PREGU ####[address] [place] [address] UA Specimen Type Void [facility] ([place] Comment on above: Performed By: #### U A, UAMICAO, PREGU ####[address] [place] [address] UA Urobilinogen 0.2 E.U./dL [facility] ([place] Comment on above: Performed By: #### U A, UAMICAO, PREGU ####[address] [place] [address] Urine, color YELLOW [facility] ([place] Comment on above: Performed By: #### U A, UAMICAO, PREGU ####[address] [place] [address] Urine, glucose Negative [facility] ([place] Comment on above: Performed By: #### U A, UAMICAO, PREGU ####[address] [place] [address] Urine, ketones presence Negative [facility] ([place]) Comment on above: Performed By: #### U A, UAMICAO, PREGU ####[address] [place] [address] Urine, urobilinogen Negative Normal [facility] ([place] Comment on above: Performed By: #### U A, UAMICAO, PREGU ####[address] [place], [place] [address] C-Reactive Proteinon 017 C reactive protein (CRP) 0.2 mg/dL Normal <0.9 [facility] Comment on above: Performed By: #### W SR, CRP, IGA, GLIAD, TGIGA ####[facility] [place], [place] [phone] Celiac HLA-DQon 05-10-2017 [facility] Interpretation The HLA-DQ genotype of the patient is not supportive of an increased risk of celiac disease. Normal [facility] Comment on above: Performed By: #### W SR, CRP, IGA, GLIAD, TGIGA ####[place] [id number] [place], [place] [phone] Celiac Category 0 Normal [facility] Comment on above: Result Comment: (NOT E)CATEGORY DQ HAPLOTYPE RELATIVE RISKCategory 7 DQ2.2 AND DQ2.5 Extremely HighCategory 7 DQ2.5 AND DQ2.5 Extremely HighCategory 6 DQ2.2 AND DQA1*05, DQB1*03:01 Very HighCategory 5 DQ2.2 AND DQ8 Very HighCategory 5 DQ2.5 AND DQ8 Very HighCategory 4 DQ8 AND DQ8 HighCategory 3 DQ2.5 AND DQA1*05, DQB1*03:01 HighCategory 3 DQ2.5 AND DQA1*02:01, DQB1*03:03 HighCategory 3 DQ2.5 AND DQA1*03, DQB1*02 HighCategory 3 DQ2.5 AND OTHER LOW RISK ALLELE HighCategory 3 DQ2.2 AND DQA1*05, DQB1*03:03 HighCategory 2 DQ8 AND OTHER LOW RISK ALLELE ModerateCategory 1 DQ2.2 AND OTHER LOW RISK ALLELE LowCategory 0 NEGATIVE FOR DQ2.2 NegativeCategory 0 NEGATIVE FOR DQ2.5 NegativeCategory 0 NEGATIVE FOR DQ8 NegativeDQ2.2 = DQA1*02:01, DQB1*02:02DQ2.5 = DQA1*05, DQB1*02:01DQ8 = DQA1*03, DQB1*03:02The identification of one of these HLA-DQ genotypes is not, byitself, sufficient for the diagnosis of celiac disease, since bothDQ2 and DQ8 are relatively common in the general population. Thestrongest reported HLA associations with celiac disease include DQ2(DQ2.5 or DQA1*05-DQB1*02:01 & DQA2.2 or DQA1*02:01-DQB1*02:02) andDQ8 (DQA1*03:01/DQB1*03:02). This test is useful for family membersof celiac patients and patients with negative serology results. Thistesting can rule out celiac disease with high negative predictivevalue (NPV) of 95-100% depending on the ethnic background.References: 1. Anna L, Anahi J, Jonathon Hastings, et al.Cost-effective HLA typing with tagging SNPs predicts celiac diseaserisk haplotypes in the [place], Korean and Spanish populations.Immunogenetics. 2009 Jan;61(4):247-56. 2. [place] GUTIERREZ. Celiac disease:dissecting a complex inflammatory disorder. April Rev Immunol. 2002Sep;2(9):647-55. 3. Messina E, Hector HS, Christine CA, et al. Risk ofpediatric celiac disease according to HLA haplotype and country. [facility] Med. 2014 ;371(1):42-9.This test was developed and its performance characteristicsdetermined by [employer]. The test has not been cleared or approvedby the [place] FDA. However, FDA approval was not necessary since this labis certified under CLIA for high complexity testing.Test performed by: [employer], [address], [place] [address]. CLIA [id number]. Performed By: #### W SR, CRP, IGA, GLIAD, TGIGA ####[address] [phone] Celiac RiskHaplotype Negative Normal Negative [facility] Comment on above: Performed By: #### W SR, CRP, IGA, GLIAD, TGIGA ####[place] [id number] [place] [phone] HLA-DQA1 Genotype 01, 01 [facility] Comment on above: Performed By: #### W SR, CRP, IGA, GLIAD, TGIGA ####[address] [place] [phone] HLA-DQB1 Genotype 05:01, 06:05 [facility] Comment on above: Performed By: #### W SR, CRP, IGA, GLIAD, TGIGA ####[place] [phone] Gliadin(Deamin.)Abson 2016 Gliad IgA Ab 10 Units Normal <20 [facility] Comment on above: Result Comment: Nega tive : < 20 UnitsWeak Positive : 20 - 30 UnitsModerate Pos to Strong Pos: >30 Units Performed By: #### W SR, CRP, IGA, GLIAD, TGIGA ####[address] [place] [phone] Gliad IgG Ab 2 Units Normal <20 [facility] Comment on above: Result Comment: Nega tive : < 20 UnitsWeak Positive : 20 - 30 UnitsModerate Pos to Strong Pos: >30 Units Performed By: #### W SR, CRP, IGA, GLIAD, TGIGA ####[place] [phone] IgAon 05-10-2017 IgA 326 mg/dL Normal 78-391 [facility] Comment on above: Performed By: #### W SR, CRP, IGA, GLIAD, TGIGA ####[place] [phone] Sed Rate Westergrenon 2016 Sed Rate Westergren 7 mm/hr Normal 0-[address] [facility] Comment on above: Performed By: #### W SR, CRP, IGA, GLIAD, TGIGA ####[address] [place] [phone] Transglutaminase IgAon 05-10 Transglutaminase IgA 4 Units Normal <20 [facility] Comment on above: Result Comment: Nega tive : < 20 UnitsWeak Positive : 20 - 30 UnitsModerate Pos to Strong Pos: >30 Units Performed By: #### W SR, CRP, IGA, GLIAD, TGIGA ####[facility] [id number] [place], [place] [phone] Culture, urine Bacteria identified Cx Nom (U) Escherichia coli [facility] Work Phone: Influenza virus A and B and SARS-CoV-2 (COVID-19) Ag panel - Upper respiratory specim SARS-CoV-2 (COVID-19) RNA PINKY+probe Ql (Resp) [facility] Work Phone: Vital Signs Date Time Vital Sign Value Performing Clinician Facility 07-22-2025 12:25-0400 Body temperature 97 [degF] Dr. Isaias Bradley MD Work Phone: 4(852)755-481230 [place] [address] 07-22-2025 12:25-0400 Diastolic blood pressure 65 mm[Hg] Dr. Isaias Bradley MD Work Phone: 8(564)652-791030 [place] [address] 07-22-2025 12:25-0400 Heart rate 63 /min Dr. Isaias Bradley MD Work Phone: 0(618)542-917030 [place] [address] 07-22-2025 12:25-0400 Respiratory rate 16 /min Dr. Isaias Bradley MD Work Phone: 5(917)679-940430 [place] [address] 07-22-2025 12:25-0400 SaO2% (BldA) [Mass fraction] 95 % Dr. Isaias Bradley MD Work Phone: 7(869)688-671530 [place] [address] 07-22-2025 12:25-0400 Systolic blood pressure 110 mm[Hg] Dr. Isaias Bradley MD Work Phone: 2(046)584-813205 [place] [address] 07-20-2025 15:41-0400 Body height 165.[address] Isaias Bradley MD Work Phone: 3(011)415-695105 [place] [address] 07-20-2025 15:41-0400 Body mass index (BMI) [Ratio] 32.3 kg/m2 Dr. Isaias Bradley MD Work Phone: 0(378)467-207630 [place] [address] 07-20-2025 15:41-0400 Body weight [address] Isaias Bradley MD Work Phone: 9(981)194-082230 [place] [address] 06-17-2025 14:17-0400 Body temperature 97.1 [degF] Dr. Isaias Bradley MD Work Phone: 1(662)687-890630 [place] [address] 06-17-2025 14:17-0400 Diastolic blood pressure 80 mm[Hg] Dr. Isaias Bradley MD Work Phone: 4(033)757-163130 [place] [address] 06-17-2025 14:17-0400 Heart rate 65 /min Dr. Isaias Bradley MD Work Phone: 0(265)141-820630 [place] [address] 06-17-2025 14:17-0400 Respiratory rate 18 /min Dr. Isaias Bradley MD Work Phone: 6(597)324-288630 [place] [address] 06-17-2025 14:17-0400 SaO2% (BldA) [Mass fraction] 96 % Dr. Isaias Bradley MD Work Phone: 9(755)610-104230 [place] [address] 06-17-2025 14:17-0400 Systolic blood pressure 105 mm[Hg] Dr. Isaias Bradley MD Work Phone: 6(199)679-230730 [place] [address] 06-16-2025 17:56-0400 Body height 165.[address] Isaias Bradley MD Work Phone: 3(687)183-431530 [place] [address] 06-16-2025 17:56-0400 Body mass index (BMI) [Ratio] 33 kg/m2 Dr. Isaias Bradley MD Work Phone: 5(298)035-234130 [place] [address] 06-16-2025 17:56-0400 Body weight 89.[address] Isaias Bradley MD Work Phone: 5(873)991-100130 [place] [address] 06-16-2025 17:35-0400 Body temperature 98.6 [degF] Dr. Isaias Bradley MD Work Phone: 7(799)729-436730 [place] [address] 06-16-2025 17:35-0400 Diastolic blood pressure 78 mm[Hg] Dr. Isaias Bradley MD Work Phone: [facility] 06-16-2025 17:35-0400 Heart rate 76 /min Dr. Isaias Bradley MD Work Phone: 8(917)174-197630 [place] [address] 06-16-2025 17:35-0400 Respiratory rate 16 /min Dr. Isaias Bradley MD Work Phone: 9(180)999-948930 [place] [address] 06-16-2025 17:35-0400 SaO2% (BldA) [Mass fraction] 100 % Dr. Isaias Bradley MD Work Phone: 7(495)717-692530 [place] [address] 06-16-2025 17:35-0400 Systolic blood pressure 114 mm[Hg] Dr. Isaias Bradley MD Work Phone: 3(620)080-648930 [place] [address] 06-16-2025 10:07-0400 Body height 165.[address] Isaias Bradley MD Work Phone: 9(323)929-101230 [place] [address] 06-16-2025 10:07-0400 Body mass index (BMI) [Ratio] 33 kg/m2 Dr. Isaias Bradley MD Work Phone: 7(681)466-363930 [place] [address] 06-16-2025 10:07-0400 Body weight 89.[address] Isaias Bradley MD Work Phone: [facility] 06-09-2025 14:50-0400 Body mass index (BMI) [Ratio] 31.95 kg/m2 Isaias Bradley MD Work Phone: [facility] 06-09-2025 14:50-0400 Body weight 87.09 kg Isaias Bradley MD Work Phone: [facility] 06-09-2025 14:50-0400 Diastolic blood pressure 62 mm[Hg] Isaias Bradley MD Work Phone: [facility] 06-09-2025 14:50-0400 Heart rate 94 /min Isaias Bradley MD Work Phone: [facility] 06-09-2025 14:50-0400 SaO2% (BldA) [Mass fraction] 99 % Isaias Bradley MD Work Phone: [facility] 06-09-2025 14:50-0400 Systolic blood pressure 94 mm[Hg] Isaias Bradley MD Work Phone: [facility] 02-20-2025 09:40-0400 Body temperature 97.6 [degF] Dr. Isaias Bradley MD Work Phone: [facility] 02-20-2025 09:40-0400 Diastolic blood pressure 65 mm[Hg] Dr. Isaias Bradley MD Work Phone: 7(030)018-294730 [place] [address] 02-20-2025 09:40-0400 Heart rate 69 /min Dr. Isaias Bradley MD Work Phone: 7(581)284-833930 [place] [address] 02-20-2025 09:40-0400 Respiratory rate 18 /min Dr. Isaias Bradley MD Work Phone: 1(637)500-694130 [place] [address] 02-20-2025 09:40-0400 SaO2% (BldA) [Mass fraction] 99 % Dr. Isaias Bradley MD Work Phone: 6(788)504-404730 [place] [address] 02-20-2025 09:40-0400 Systolic blood pressure 99 mm[Hg] Dr. Isaias Bradley MD Work Phone: 4(942)148-628630 [place] [address] 02-17-2025 21:09-0400 Inhaled oxygen flow rate 2 L/min Dr. Isaias Bradley MD Work Phone: 4(089)158-565930 [place] [address] 02-16-2025 19:45-0400 Body mass index (BMI) [Ratio] 30.7 kg/m2 Dr. Isaias Bradley MD Work Phone: 8(777)279-095130 [place] [address] 02-16-2025 19:45-0400 Body weight 83.[address] Isaias Bradley MD Work Phone: 1(987)241-978830 [place] [address] 02-16-2025 19:05-0400 Body temperature 97 [degF] Dr. Isaias Bradley MD Work Phone: 8(327)120-763830 [place] [address] 02-16-2025 19:05-0400 Diastolic blood pressure 75 mm[Hg] Dr. Isaias Bradley MD Work Phone: 2(649)607-977730 [place] [address] 02-16-2025 19:05-0400 Heart rate 61 /min Dr. Isaias Bradley MD Work Phone: 8(458)657-462730 [place] [address] 02-16-2025 19:05-0400 Respiratory rate 16 /min Dr. Isaias Bradley MD Work Phone: 5(574)666-980330 [place] [address] 02-16-2025 19:05-0400 SaO2% (BldA) [Mass fraction] 96 % Dr. Isaias Bradley MD Work Phone: 7(767)920-402030 [place] [address] 02-16-2025 19:05-0400 Systolic blood pressure 116 mm[Hg] Dr. Isaias Bradley MD Work Phone: 9(022)079-450230 [place] [address] 02-16-2025 16:53-0400 Body mass index (BMI) [Ratio] 31.1 kg/m2 Dr. Isaias Bradley MD Work Phone: 7(885)698-822130 [place] [address] 02-16-2025 16:53-0400 Body weight [address] Isaias Bradley MD Work Phone: 7(313)513-606930 [place] [address] 02-16-2025 16:25-0400 Body height 165.[address] Isaias Bradley MD Work Phone: 7(772)635-049830 [place] [address] 12-10-2024 17:28-0500 Body temperature 98.2 [degF] Dr. Isaias Bradley MD Work Phone: 2(627)678-256330 [place] [address] 12-10-2024 17:28-0500 Diastolic blood pressure 78 mm[Hg] Dr. Isaias Bradley MD Work Phone: 3(872)661-699930 [place] [address] 12-10-2024 17:28-0500 Heart rate 72 /min Dr. Isaias Bradley MD Work Phone: 9(852)432-355130 [place] [address] 12-10-2024 17:28-0500 Respiratory rate 16 /min Dr. Isaias Bradley MD Work Phone: 5(857)967-133330 [place] [address] 12-10-2024 17:28-0500 SaO2% (BldA) [Mass fraction] 99 % Dr. Isaias Bradley MD Work Phone: 7(503)161-303130 [place] [address] 12-10-2024 17:28-0500 Systolic blood pressure 110 mm[Hg] Dr. Isaias Bradley MD Work Phone: [facility] 12-10-2024 14:17-0500 Body mass index (BMI) [Ratio] 32.2 kg/m2 Dr. Isaias Bradley MD Work Phone: [facility] 12-10-2024 14:17-0500 Body weight 87.[address] Isaias Bradley MD Work Phone: [facility] 05-16-2024 14:47-0400 Body temperature 97.52 [degF] DR SILAS CRISTOBAL MD [address] 05-16-2024 14:47-0400 Diastolic Blood Pressure Non-Invasive 73 mm[Hg] DR SILAS CRISTOBAL MD [address] 05-16-2024 14:47-0400 Heart rate 74 /min DR SILAS CRISTOBAL MD [address] [place] [address] 05-16-2024 14:47-0400 Respiratory rate 18 /min DR SILAS CRISTOBAL MD [address] [place] [address] 05-16-2024 14:47-0400 Systolic Blood Pressure Non-Invasive 105 mm[Hg] DR SILAS CRISTOBAL MD [address] 05-16-2024 06:41-0400 Blood Pressure Cuff Size DR SILAS CRISTOBAL MD [address] [place] [address] 05-16-2024 06:41-[address] SILAS CRISTOBAL MD [address] [place] [address] 05-16-2024 06:41-[address] SILAS CRISTOBAL MD [address] [place] [address] 05-16-2024 06:41-0400 Body temperature 97.52 [degF] DR SILAS CRISTOBAL MD [address] [place] [address] 05-16-2024 06:41-0400 Diastolic Blood Pressure Non-Invasive 67 mm[Hg] DR SILAS CRISTOBAL MD [facility] 05-16-2024 06:41-0400 Heart rate 70 /min DR SILAS CRISTOBAL MD [address] [place] [address] 05-16-2024 06:41-0400 Reason For Taking VItal Signs DR SILAS CRISTOBAL MD [address] [place] [address] 05-16-2024 06:41-0400 Respiratory rate 18 /min DR SILAS CRISTOBAL MD [address] [place] [address] 05-16-2024 06:41-0400 Systolic Blood Pressure Non-Invasive 111 mm[Hg] DR SILAS CRISTOBAL MD [address] [place] [address] 05-16-2024 04:05-0400 Reason For Taking VItal Signs DR SILAS CRISTOBAL MD [address] [place] [address] 05-15-2024 22:23-0400 Blood Pressure Cuff Size DR SILAS CRISTOBAL MD [address] [place] [address] 05-15-2024 22:23-[address] SILAS CRISTOBAL MD [address] [place] [address] 05-15-2024 22:23-[address] SILAS CRISTOBAL MD [address] [place] [address] 05-15-2024 22:23-0400 Body temperature 98.24 [degF] DR SILAS CRISTOBAL MD [address] [place] [address] 05-15-2024 22:23-0400 Diastolic Blood Pressure Non-Invasive 71 mm[Hg] DR SILAS CRISTOBAL MD [address] [place] [address] 05-15-2024 22:23-0400 Heart rate 75 /min DR SILAS CRISTOBAL MD [address] [place] [address] 05-15-2024 22:23-0400 Reason For Taking VItal Signs DR SILAS CRISTOBAL MD [facility] 05-15-2024 22:23-0400 Respiratory rate 18 /min DR SILAS CRISTOBAL MD [facility] 05-15-2024 22:23-0400 Systolic Blood Pressure Non-Invasive 115 mm[Hg] DR SILAS CRISTOBAL MD [address] [place] [address] 05-15-2024 18:31-0400 Heart rate 92 /min DR SILAS CRISTOBAL MD [address] [place] [address] 05-15-2024 14:57-0400 Heart rate 79 /min DR SILAS CRISTOBAL MD [address] [place] [address] 05-15-2024 11:10-0400 Blood Pressure Cuff Size DR SILAS CRISTOBAL MD [address] [place] [address] 05-15-2024 11:10-[address] SILAS CRISTOBAL MD [address] [place] [address] 05-15-2024 11:10-[address] SILAS CRISTOBAL MD [facility] 05-15-2024 11:10-0400 Heart rate 75 /min DR SILAS CRISTOBAL MD [facility] 05-14-2024 11:41-0400 Mean blood pressure 99 mm[Hg] DR SILAS CRISTOBAL MD [address] [place] [address] 05-14-2024 11:26-0400 Body temperature 96.8 [degF] DR SILAS CRISTOBAL MD [address] [place] [address] 05-14-2024 11:20-0400 Respiratory Rate - Anes 14 br/min DR SILAS CRISTOBAL MD [address] [place] [address] 05-14-2024 11:15-0400 Respiratory Rate - Anes 15 br/min DR SILAS CRISTOBAL MD [facility] 05-14-2024 11:10-0400 Respiratory Rate - Anes 0 br/min DR SILAS CRISTOBAL MD [facility] 05-12-2024 23:25-0400 Body height [address] SILAS CRISTOBAL MD [address] [place] [address] 05-12-2024 23:25-0400 Body weight [address] SILAS CRISTOBAL MD [address] [place] [address] 05-12-2024 23:25-0400 Body weight 34.16 kg/m2 DR SILAS CRISTOBAL MD [address] [place] [address] 05-12-2024 16:06-0400 Mean blood pressure 82 mm[Hg] DR SILAS CRISTOBAL MD [address] [place] [address] 05-12-2024 15:27-0400 Mean blood pressure 92 mm[Hg] DR SILAS CRISTOBAL MD [address] [place] [address] 05-11-2024 13:45-0400 Body height [address] SILAS CRISTOBAL MD [address] [place] [address] 05-11-2024 13:45-0400 Body temperature 96.44 [degF] DR SILAS CRISTOBAL MD [facility] 05-11-2024 13:45-0400 Body weight [address] SILAS CRISTOBAL MD [facility] 08-09-2023 09:20-0400 Diastolic blood pressure 66 mm[Hg] Nisa Carlton MD Work Phone: [facility] 08-09-2023 09:20-0400 Heart rate 99 /min Nisa Carlton MD Work Phone: [facility] 08-09-2023 09:20-0400 SaO2% (BldA) [Mass fraction] 98 % Nisa Carlton MD Work Phone: [facility] 08-09-2023 09:20-0400 Systolic blood pressure 110 mm[Hg] Nisa Carlton MD Work Phone: [facility] 08-09-2023 08:15-0400 Body height 165.1 cm Nisa Carlton MD Work Phone: [facility] 08-09-2023 08:15-0400 Body temperature 97.2 [degF] Nisa Carlton MD Work Phone: [facility] 08-09-2023 08:15-0400 Body weight 92.08 kg Nisa Carlton MD Work Phone: [facility] 07-24-2023 13:34-0400 Heart rate 96 /min [facility] 07-24-2023 13:34-0400 Respiratory rate 21 /min [facility] 07-24-2023 11:28-0400 Body height 165.1 cm [facility] 07-24-2023 11:28-0400 Body temperature 97.3 [degF] [facility] 07-24-2023 11:28-0400 Diastolic blood pressure 87 mm[Hg] [facility] 07-24-2023 11:28-0400 SaO2% (BldA) [Mass fraction] 100 % [facility] 07-24-2023 11:28-0400 Systolic blood pressure 121 mm[Hg] [facility] 06-09-2023 13:19-0400 Body height 165.1 cm [facility] 06-09-2023 13:19-0400 Body mass index (BMI) [Ratio] 33.7 kg/m2 [facility] 06-09-2023 13:19-0400 Body temperature 96.4 [degF] [facility] 06-09-2023 13:19-0400 Body weight 92.07 kg [facility] 06-09-2023 13:19-0400 Diastolic blood pressure 96 mm[Hg] [facility] 06-09-2023 13:19-0400 Heart rate 106 /min [facility] 06-09-2023 13:19-0400 Respiratory rate 18 /min [facility] 06-09-2023 13:19-0400 SaO2% (BldA) [Mass fraction] 100 % [facility] 06-09-2023 13:19-0400 Systolic blood pressure 146 mm[Hg] [facility] 04-13-2023 17:17-0400 Body temperature 98.1 [degF] Thor Goetz MD Work Phone: [facility] 04-13-2023 17:17-0400 Body weight 87.36 kg Thor Goetz MD Work Phone: [facility] 04-13-2023 17:17-0400 Diastolic blood pressure 82 mm[Hg] Thor Goetz MD Work Phone: [facility] 04-13-2023 17:17-0400 Heart rate 95 /min Thor Goetz MD Work Phone: [facility] 04-13-2023 17:17-0400 Respiratory rate 18 /min Thor Goetz MD Work Phone: [facility] 04-13-2023 17:17-0400 SaO2% (BldA) [Mass fraction] 97 % Thor Goetz MD Work Phone: [facility] 04-13-2023 17:17-0400 Systolic blood pressure 128 mm[Hg] Thor Goetz MD Work Phone: [facility] 02-23-2023 17:31-0400 Diastolic blood pressure 76 mm[Hg] Dr. Isaias Bradley Work Phone: [facility] 02-23-2023 17:31-0400 Heart rate 80 /min Dr. Isaias Bradley Work Phone: [facility] 02-23-2023 17:31-0400 Respiratory rate 16 /min Dr. Isaias Bradley Work Phone: [facility] 02-23-2023 17:31-0400 SaO2% (BldA) [Mass fraction] 100 % Dr. Isaias Bradley Work Phone: 5(362)297-671005 [place] [address] 02-23-2023 17:31-0400 Systolic blood pressure 112 mm[Hg] Dr. Isaias Bradley Work Phone: 4(733)288-015030 [place] [address] 02-23-2023 15:28-0400 Body height 165.[address] Isaias Bradley Work Phone: 8(838)459-305730 [place] [address] 02-23-2023 15:28-0400 Body mass index (BMI) [Ratio] 32.1 kg/m2 Dr. Isaias Bradley Work Phone: 5(313)127-404030 [place] [address] 02-23-2023 15:28-0400 Body temperature 97.4 [degF] Dr. Isaias Bradley Work Phone: 1(733)947-705330 [place] [address] 02-23-2023 15:28-0400 Body weight 87.[address] Isaias Bradley Work Phone: 7(605)990-029505 [place] [address] 02-14-2023 19:21-0400 Body height 165.[address] Isaias Bradley Work Phone: 0(628)041-013730 [place] [address] 02-14-2023 19:21-0400 Body mass index (BMI) [Ratio] 32.3 kg/m2 Dr. Isaias Bradley Work Phone: 0(172)016-379830 [place] [address] 02-14-2023 19:21-0400 Body temperature 97.9 [degF] Dr. Isaias Bradley Work Phone: 1(387)246-552305 [place] [address] 02-14-2023 19:21-0400 Body weight 88.[address] Isaias Bradley Work Phone: 9(785)199-210730 [place] [address] 02-14-2023 19:21-0400 Diastolic blood pressure 77 mm[Hg] Dr. Isaias Bardley Work Phone: 0(148)943-788905 [place] [address] 02-14-2023 19:21-0400 Heart rate 72 /min Dr. Isaias Bradley Work Phone: 4(277)994-036605 [place] [address] 02-14-2023 19:21-0400 Respiratory rate 15 /min Dr. Isaias Bradley Work Phone: 9(417)562-398730 [place] [address] 02-14-2023 19:21-0400 SaO2% (BldA) [Mass fraction] 100 % Dr. Isaias Bradley Work Phone: 5(099)450-983930 [place] [address] 02-14-2023 19:21-0400 Systolic blood pressure 112 mm[Hg] Dr. Isaias Bradley Work Phone: 6(231)978-711530 [place] [address] 02-12-2023 12:43-0400 Heart rate 84 /min Dr. Isaias Bradley Work Phone: 3(612)665-526930 [place] [address] 02-12-2023 12:43-0400 Respiratory rate 16 /min Dr. Isaias Bradley Work Phone: 9(301)583-553330 [place] [address] 02-12-2023 10:27-0400 Body height 165.[address] Isaias Bradley Work Phone: 7(527)122-714730 [place] [address] 02-12-2023 10:27-0400 Body mass index (BMI) [Ratio] 32.3 kg/m2 Dr. Isaias Bradley Work Phone: 3(542)208-100430 [place] [address] 02-12-2023 10:27-0400 Body temperature 98.6 [degF] Dr. Isaias Bradley Work Phone: 8(177)098-738230 [place] [address] 02-12-2023 10:27-0400 Body weight [address] Isaias Bradley Work Phone: 2(308)778-502630 [place] [address] 02-12-2023 10:27-0400 Diastolic blood pressure 74 mm[Hg] Dr. Isaias Bradley Work Phone: 3(956)863-536230 [place] [address] 02-12-2023 10:27-0400 SaO2% (BldA) [Mass fraction] 100 % Dr. Isaias Bradley Work Phone: 3(066)330-029930 [place] [address] 02-12-2023 10:27-0400 Systolic blood pressure 115 mm[Hg] Dr. Isaias Bradley Work Phone: 6(597)688-652230 [place] [address] 02-05-2023 05:33-0400 Diastolic blood pressure 77 mm[Hg] [facility] 02-05-2023 05:33-0400 Heart rate 94 /min [facility] 02-05-2023 05:33-0400 Respiratory rate 16 /min [facility] 02-05-2023 05:33-0400 SaO2% (BldA) [Mass fraction] 98 % [facility] 02-05-2023 05:33-0400 Systolic blood pressure 117 mm[Hg] [facility] 02-05-2023 05:15-0400 Body temperature 98 [degF] [facility] 02-04-2023 16:48-0400 Body height 165.1 cm [facility] 02-04-2023 16:48-0400 Body mass index (BMI) [Ratio] 32.1 kg/m2 [facility] 02-04-2023 16:48-0400 Body weight 87.4 kg [facility] 02-01-2023 14:46-0400 Body weight 81.19 kg Isaias Bradley MD Work Phone: [facility] 02-01-2023 14:46-0400 Diastolic blood pressure 62 mm[Hg] Isaias Bradley MD Work Phone: [facility] 02-01-2023 14:46-0400 Heart rate 100 /min Isaias Bradley MD Work Phone: [facility] 02-01-2023 14:46-0400 Systolic blood pressure 92 mm[Hg] Isaias Bradley MD Work Phone: [facility] 02-01-2023 08:56-0400 Body weight 81.19 kg Kenisha Rajguru FIELD RESEARCH ASSISTANT.HEALTH CLUB MANAGER Work Phone: [facility] 02-01-2023 08:56-0400 Diastolic blood pressure 62 mm[Hg] Kenisha Rajguru FIELD RESEARCH ASSISTANT.HEALTH CLUB MANAGER Work Phone: [facility] 02-01-2023 08:56-0400 Heart rate 134 /min Kenisha Rajguru FIELD RESEARCH ASSISTANT.HEALTH CLUB MANAGER Work Phone: [facility] 02-01-2023 08:56-0400 Systolic blood pressure 104 mm[Hg] Kenisha Rajguru FIELD RESEARCH ASSISTANT.HEALTH CLUB MANAGER Work Phone: [facility] 01-17-2023 08:41-0400 Body temperature 98.8 [degF] Jose Guadalupe Alexander FIELD RESEARCH ASSISTANT.HEALTH CLUB MANAGER Work Phone: [facility] 01-17-2023 08:41-0400 Body weight 80.74 kg Jose Guadalupe Alexander FIELD RESEARCH ASSISTANT.HEALTH CLUB MANAGER Work Phone: [facility] 01-17-2023 08:41-0400 Diastolic blood pressure 80 mm[Hg] Jose Guadalupe King FIELD RESEARCH ASSISTANT.HEALTH CLUB MANAGER Work Phone: [facility] 01-17-2023 08:41-0400 Heart rate 88 /min Jose Guadalupe Alexander FIELD RESEARCH ASSISTANT.HEALTH CLUB MANAGER Work Phone: [facility] 01-17-2023 08:41-0400 Respiratory rate 16 /min Jose Guadalupe Alexander FIELD RESEARCH ASSISTANT.HEALTH CLUB MANAGER Work Phone: [facility] 01-17-2023 08:41-0400 SaO2% (BldA) [Mass fraction] 98 % Jose Guadalupe Alexander FIELD RESEARCH ASSISTANT.HEALTH CLUB MANAGER Work Phone: [facility] 01-17-2023 08:41-0400 Systolic blood pressure 122 mm[Hg] Jose Guadalupe Alexander FIELD RESEARCH ASSISTANT.HEALTH CLUB MANAGER Work Phone: [facility] 11-29-2022 09:14-0500 Body temperature 98.1 [degF] Natalia Most RN Work Phone: [facility] 11-29-2022 09:14-0500 Diastolic blood pressure 84 mm[Hg] Natalia Most RN Work Phone: [facility] 11-29-2022 09:14-0500 Heart rate 80 /min Natalia Most RN Work Phone: [facility] 11-29-2022 09:14-0500 Respiratory rate 16 /min Natalia Most RN Work Phone: [facility] 11-29-2022 09:14-0500 SaO2% (BldA) [Mass fraction] 98 % Natalia Most RN Work Phone: [facility] 11-29-2022 09:14-0500 Systolic blood pressure 118 mm[Hg] Natalia RN Work Phone: [facility] 11-25-2022 14:14-0500 Body height 165.1 cm Paulina Long RN Work Phone: [facility] 11-25-2022 14:14-0500 Body temperature 97.39 [degF] Paulina Long RN Work Phone: [facility] 11-25-2022 14:14-0500 Body weight 74.39 kg Paulina Long RN Work Phone: [facility] 11-25-2022 14:14-0500 Diastolic blood pressure 70 mm[Hg] Paulina Long RN Work Phone: [facility] 11-25-2022 14:14-0500 Heart rate 107 /min Paulina Long RN Work Phone: [facility] 11-25-2022 14:14-0500 Respiratory rate 18 /min Paulina Long RN Work Phone: [facility] 11-25-2022 14:14-0500 SaO2% (BldA) [Mass fraction] 99 % Paulina Long RN Work Phone: [facility] 11-25-2022 14:14-0500 Systolic blood pressure 102 mm[Hg] Paulina Long RN Work Phone: [facility] 11-24-2022 11:03-0500 Body height 165.1 cm Isaias Bradley MD Work Phone: [facility] 11-24-2022 11:03-0500 Body weight 80.29 kg Isaias Bradley MD Work Phone: [facility] 11-24-2022 11:03-0500 Diastolic blood pressure 76 mm[Hg] Isaias Bradley MD Work Phone: [facility] 11-24-2022 11:03-0500 Heart rate 146 /min Isaias Bradley MD Work Phone: [facility] 11-24-2022 11:03-0500 SaO2% (BldA) [Mass fraction] 99 % Isaias Bradley MD Work Phone: [facility] 11-24-2022 11:03-0500 Systolic blood pressure 98 mm[Hg] Isaias Bradley MD Work Phone: [facility] 11-18-2022 16:03-0500 Body height 165.1 cm Isaias Bradley MD Work Phone: [facility] 11-18-2022 16:03-0500 Body weight 75.75 kg Isaias Bradley MD Work Phone: [facility] 11-18-2022 16:03-0500 Diastolic blood pressure 90 mm[Hg] Isaias Bradley MD Work Phone: [facility] 11-18-2022 16:03-0500 Heart rate 115 /min Isaias Bradley MD Work Phone: [facility] 11-18-2022 16:03-0500 SaO2% (BldA) [Mass fraction] 99 % Isaias Bradley MD Work Phone: [facility] 11-18-2022 16:03-0500 Systolic blood pressure 116 mm[Hg] Isaias Bradley MD Work Phone: [facility] 11-03-2022 21:57-0500 Diastolic blood pressure 88 mm[Hg] Dr. Isaias Bradley Work Phone: [facility] 11-03-2022 21:57-0500 Heart rate 82 /min Dr. Isaias Bradley Work Phone: [facility] 11-03-2022 21:57-0500 Respiratory rate 16 /min Dr. Isaias Bradley Work Phone: [facility] 11-03-2022 21:57-0500 SaO2% (BldA) [Mass fraction] 98 % Dr. Isaias Bradley Work Phone: [facility] 11-03-2022 21:57-0500 Systolic blood pressure 120 mm[Hg] Dr. Isaias Bradley Work Phone: 2(025)987-283843 [place] [address] 11-03-2022 19:23-0500 Body height 165.[address] Isaias Bradley Work Phone: [facility] Work Phone: 11-03-2022 19:23-0500 Body mass index (BMI) [Ratio] 29.5 kg/m2 Dr. Isaias Bradley Work Phone: 0(954)592-069805 [place] [address] 11-03-2022 19:23-0500 Body temperature 97.3 [degF] Dr. Isaias Bradley Work Phone: 8(970)714-872336 [address] 11-03-2022 19:23-0500 Body weight 80.[address] Isaias Bradley Work Phone: 8(963)327-217830 [place] [address] 10-31-2022 21:38-0500 Diastolic blood pressure 74 mm[Hg] Dr. Isaias Bradley Work Phone: 5(215)476-664030 [place] [address] 10-31-2022 21:38-0500 Heart rate 62 /min Dr. Isaias Bradley Work Phone: 2(425)496-643230 [place] [address] 10-31-2022 21:38-0500 Respiratory rate 15 /min Dr. Isaias Bradley Work Phone: 7(628)817-751230 [place] [address] 10-31-2022 21:38-0500 SaO2% (BldA) [Mass fraction] 98 % Dr. Isaias Bradley Work Phone: 5(688)033-281905 [place] [address] 10-31-2022 21:38-0500 Systolic blood pressure 116 mm[Hg] Dr. Isaias Bradley Work Phone: 4(827)781-935005 [place] [address] 10-31-2022 17:19-0500 Body height 165.[address] Isaias Bradley Work Phone: 5(021)787-857005 [place] [address] Work Phone: 10-31-2022 17:19-0500 Body mass index (BMI) [Ratio] 27.4 kg/m2 Dr. Isaias Bradley Work Phone: 7(950)588-220105 [place] [address] 10-31-2022 17:19-0500 Body temperature 98 [degF] Dr. Isaias Bradley Work Phone: 2(101)815-470205 [place] [address] 10-31-2022 17:19-0500 Body weight 74.[address] Isaias Bradley Work Phone: 4(271)024-869705 [place] [address] 10-29-2022 14:57-0500 Diastolic blood pressure 66 mm[Hg] Dr. Isaias Bradley Work Phone: 5(749)076-425130 [place] [address] 10-29-2022 14:57-0500 Heart rate 88 /min Dr. Isaias Bradley Work Phone: 2(288)952-810430 [place] [address] 10-29-2022 14:57-0500 Systolic blood pressure 103 mm[Hg] Dr. Isaias Bradley Work Phone: 0(649)570-743630 [place] [address] 10-29-2022 14:00-0500 Respiratory rate 14 /min Dr. Isaias Bradley Work Phone: 5(230)818-308930 [place] [address] 10-29-2022 14:00-0500 SaO2% (BldA) [Mass fraction] 96 % Dr. Isaias Bradley Work Phone: 5(806)013-167530 [place] [address] 10-29-2022 10:45-0500 Body mass index (BMI) [Ratio] 27.6 kg/m2 Dr. Isaias Bradley Work Phone: 7(161)275-373730 [place] [address] 10-29-2022 10:45-0500 Body temperature 97.4 [degF] Dr. Isaias Bradley Work Phone: 4(181)815-725305 [place] [address] 10-29-2022 10:45-0500 Body weight 75.[address] Isaias Bradley Work Phone: 1(393)006-020305 [place] [address] 10-05-2022 11:51-0500 Body temperature 98.91 [degF] Chelle Gonzales APRN.HEALTH CLUB MANAGER Work Phone: 3(907)551-025530 [place] [address] 10-05-2022 11:51-0500 Body weight 78.47 kg Chelle Gonzales APRN.HEALTH CLUB MANAGER Work Phone: [facility] 10-05-2022 11:51-0500 Diastolic blood pressure 68 mm[Hg] Chelle Gonzales APRN.HEALTH CLUB MANAGER Work Phone: [facility] 10-05-2022 11:51-0500 Heart rate 98 /min Chelle Praisler-Wood FIELD RESEARCH ASSISTANT.HEALTH CLUB MANAGER Work Phone: [facility] 10-05-2022 11:51-0500 Respiratory rate 16 /min Chelle Praisler-Wood FIELD RESEARCH ASSISTANT.HEALTH CLUB MANAGER Work Phone: [facility] 10-05-2022 11:51-0500 SaO2% (BldA) [Mass fraction] 97 % Chelle Praisler-Wood FIELD RESEARCH ASSISTANT.HEALTH CLUB MANAGER Work Phone: [facility] 10-05-2022 11:51-0500 Systolic blood pressure 104 mm[Hg] Chelle Praisler-Wood FIELD RESEARCH ASSISTANT.HEALTH CLUB MANAGER Work Phone: [facility] 09-11-2022 20:28-0500 Diastolic blood pressure 74 mm[Hg] Dr. Isaias Bradley Work Phone: [facility] Work Phone: 09-11-2022 20:28-0500 Heart rate 93 /min Dr. Isaias Bradley Work Phone: [facility] Work Phone: 09-11-2022 20:28-0500 Respiratory rate 18 /min Dr. Isaias Bradley Work Phone: [facility] Work Phone: 09-11-2022 20:28-0500 SaO2% (BldA) [Mass fraction] 94 % Dr. Isaias Bradley Work Phone: [facility] Work Phone: 09-11-2022 20:28-0500 Systolic blood pressure 118 mm[Hg] Dr. Isaias Bradley Work Phone: [facility] Work Phone: 09-11-2022 19:57-0500 Body temperature 97.5 [degF] Dr. Isaias Bradley Work Phone: [facility] Work Phone: 09-11-2022 18:13-0500 Body height 165.[address] Isaias Bradley Work Phone: [facility] Work Phone: 09-11-2022 18:13-0500 Body mass index (BMI) [Ratio] 29.1 kg/m2 Dr. Isaias Bradley Work Phone: [facility] Work Phone: 09-11-2022 18:13-0500 Body weight 79.[address] Isaias Bradley Work Phone: [facility] Work Phone: 09-10-2022 20:39-0500 Body height 165.[address] Isaias Bradley Work Phone: [facility] Work Phone: 09-10-2022 20:39-0500 Body mass index (BMI) [Ratio] 28.3 kg/m2 Dr. Isaias Bradley Work Phone: [facility] Work Phone: 09-10-2022 20:39-0500 Body temperature 98.3 [degF] Dr. Isaias Bradley Work Phone: [facility] Work Phone: 09-10-2022 20:39-0500 Body weight 77.[address] Isaias Bradley Work Phone: [facility] Work Phone: 09-10-2022 20:39-0500 Diastolic blood pressure 77 mm[Hg] Dr. Isaias Bradley Work Phone: [facility] Work Phone: 09-10-2022 20:39-0500 Heart rate 105 /min Dr. Isaias Bradley Work Phone: [facility] Work Phone: 09-10-2022 20:39-0500 Respiratory rate 18 /min Dr. Isaias Bradley Work Phone: [facility] Work Phone: 09-10-2022 20:39-0500 SaO2% (BldA) [Mass fraction] 100 % Dr. Isaias Bradley Work Phone: [facility] Work Phone: 09-10-2022 20:39-0500 Systolic blood pressure 123 mm[Hg] Dr. Isaias Bradley Work Phone: [facility] Work Phone: 09-08-2022 18:46-0500 Heart rate 92 /min Dr. Isaias Bradley Work Phone: [facility] Work Phone: 09-08-2022 18:46-0500 Respiratory rate 17 /min Dr. Isaias Bradley Work Phone: [facility] Work Phone: 09-08-2022 18:46-0500 SaO2% (BldA) [Mass fraction] 98 % Dr. Isaias Bradley Work Phone: [facility] Work Phone: 09-08-2022 17:39-0500 Body height 165.[address] Isaias Bradley Work Phone: [facility] Work Phone: 09-08-2022 17:39-0500 Body mass index (BMI) [Ratio] 28.1 kg/m2 Dr. Isaias Bradley Work Phone: [facility] Work Phone: 09-08-2022 17:39-0500 Body temperature 98.8 [degF] Dr. Isaias Bradley Work Phone: [facility] Work Phone: 09-08-2022 17:39-0500 Body weight 76.[address] Isaias Bradley Work Phone: [facility] Work Phone: 09-08-2022 17:39-0500 Diastolic blood pressure 77 mm[Hg] Dr. Isaias Bradley Work Phone: [facility] Work Phone: 09-08-2022 17:39-0500 Systolic blood pressure 108 mm[Hg] Dr. Isaias Bradley Work Phone: [facility] Work Phone: 09-06-2022 21:32-0500 Body height 165.[address] Isaias Bradley Work Phone: [facility] Work Phone: 09-06-2022 21:32-0500 Body mass index (BMI) [Ratio] 29.7 kg/m2 Dr. Isaias Bradley Work Phone: [facility] Work Phone: 09-06-2022 21:32-0500 Body temperature 97.8 [degF] Dr. Isaias Bradley Work Phone: [facility] Work Phone: 09-06-2022 21:32-0500 Body weight 81.[address] Isaias Bradley Work Phone: [facility] Work Phone: 09-06-2022 21:32-0500 Diastolic blood pressure 85 mm[Hg] Dr. Isaias Bradley Work Phone: [facility] Work Phone: 09-06-2022 21:32-0500 Heart rate 95 /min Dr. Isaias Bradley Work Phone: [facility] Work Phone: 09-06-2022 21:32-0500 Respiratory rate 15 /min Dr. Isaias Bradley Work Phone: [facility] Work Phone: 09-06-2022 21:32-0500 SaO2% (BldA) [Mass fraction] 98 % Dr. Isaias Bradley Work Phone: [facility] Work Phone: 09-06-2022 21:32-0500 Systolic blood pressure 122 mm[Hg] Dr. Isaias Bradley Work Phone: [facility] Work Phone: 09-05-2022 17:02-0500 Diastolic blood pressure 70 mm[Hg] Dr. Isaias Bradley Work Phone: [facility] Work Phone: 09-05-2022 17:02-0500 Heart rate 79 /min Dr. Isaias Bradley Work Phone: [facility] Work Phone: 09-05-2022 17:02-0500 Respiratory rate 18 /min Dr. Isaias Bradley Work Phone: [facility] Work Phone: 09-05-2022 17:02-0500 SaO2% (BldA) [Mass fraction] 100 % Dr. Isaias Bradley Work Phone: [facility] Work Phone: 09-05-2022 17:02-0500 Systolic blood pressure 120 mm[Hg] Dr. Isaias Bradley Work Phone: [facility] Work Phone: 09-05-2022 11:54-0500 Body height 165.[address] Isaias Bradley Work Phone: [facility] Work Phone: 09-05-2022 11:54-0500 Body mass index (BMI) [Ratio] 28.1 kg/m2 Dr. Isaias Bradley Work Phone: [facility] Work Phone: 09-05-2022 11:54-0500 Body temperature 97.4 [degF] Dr. Isaias Bradley Work Phone: [facility] Work Phone: 09-05-2022 11:54-0500 Body weight 76.[address] Isaias Bradley Work Phone: [facility] Work Phone: 09-01-2022 11:01-0500 Diastolic blood pressure 62 mm[Hg] Roby Nathan MD Work Phone: [facility] 09-01-2022 11:01-0500 Heart rate 94 /min Roby Nathan MD Work Phone: [facility] 09-01-2022 11:01-0500 Respiratory rate 16 /min Roby Nathan MD Work Phone: [facility] 09-01-2022 11:01-0500 SaO2% (BldA) [Mass fraction] 100 % Roby Nathan MD Work Phone: [facility] 09-01-2022 11:01-0500 Systolic blood pressure 92 mm[Hg] Roby Nathan MD Work Phone: [facility] 09-01-2022 09:17-0500 Body temperature 97.2 [degF] Roby Nathan MD Work Phone: [facility] 08-14-2022 12:02-0400 Body temperature 98 [degF] Dr. Isaias Bradley Work Phone: [facility] Work Phone: 08-14-2022 12:02-0400 Diastolic blood pressure 94 mm[Hg] Dr. Isaias Bradley Work Phone: [facility] Work Phone: 08-14-2022 12:02-0400 Heart rate 57 /min Dr. Isaias Bradley Work Phone: [facility] Work Phone: 08-14-2022 12:02-0400 Respiratory rate 16 /min Dr. Isaias Bradley Work Phone: [facility] Work Phone: 08-14-2022 12:02-0400 SaO2% (BldA) [Mass fraction] 97 % Dr. Isaias Bradley Work Phone: [facility] Work Phone: 08-14-2022 12:02-0400 Systolic blood pressure 144 mm[Hg] Dr. Iasias Bradley Work Phone: [facility] Work Phone: 08-14-2022 06:00-0400 Body weight 76.[address] Isaias Bradley Work Phone: [facility] Work Phone: 08-10-2022 13:41-0400 Body height 165.[address] Isaias Bradley Work Phone: [facility] Work Phone: 08-09-2022 18:55-0400 Body mass index (BMI) [Ratio] 28 kg/m2 Dr. Isaias Bradley Work Phone: [facility] Work Phone: 08-09-2022 18:00-0400 Body temperature 98.8 [degF] [facility] Work Phone: 08-09-2022 18:00-0400 Diastolic blood pressure 78 mm[Hg] [facility] Work Phone: 08-09-2022 18:00-0400 Heart rate 78 /min [facility] Work Phone: 08-09-2022 18:00-0400 Respiratory rate 13 /min [facility] Work Phone: 08-09-2022 18:00-0400 SaO2% (BldA) [Mass fraction] 94 % [facility] Work Phone: 08-09-2022 18:00-0400 Systolic blood pressure 132 mm[Hg] [facility] Work Phone: 08-09-2022 09:23-0400 Body height 165.1 cm [facility] Work Phone: 08-09-2022 09:23-0400 Body mass index (BMI) [Ratio] 28.5 kg/m2 [facility] Work Phone: 08-09-2022 09:23-0400 Body weight 77.8 kg [facility] Work Phone: 08-01-2022 10:12-0400 Body height 165.1 cm Jigna Jiang MD Work Phone: [facility] 08-01-2022 10:12-0400 Body temperature 96.49 [degF] Jigna Jiang MD Work Phone: [facility] 08-01-2022 10:12-0400 Body weight 76.66 kg Jigna Jiang MD Work Phone: [facility] 08-01-2022 10:12-0400 Diastolic blood pressure 68 mm[Hg] Jigna Jiang MD Work Phone: [facility] 08-01-2022 10:12-0400 Heart rate 88 /min Jigna Jiang MD Work Phone: [facility] 08-01-2022 10:12-0400 SaO2% (BldA) [Mass fraction] 100 % Jigna Jiang MD Work Phone: [facility] 08-01-2022 10:12-0400 Systolic blood pressure 100 mm[Hg] Jigna Jiang MD Work Phone: [facility] 07-28-2022 10:04-0400 Body height 165.1 cm Briseyda Pride MD Work Phone: [facility] 07-28-2022 10:04-0400 Body weight 77.2 kg Briseyda Pride MD Work Phone: [facility] 07-28-2022 10:04-0400 Diastolic blood pressure 65 mm[Hg] Briseyda Pride MD Work Phone: [facility] 07-28-2022 10:04-0400 Heart rate 89 /min Briseyda Pride MD Work Phone: [facility] 07-28-2022 10:04-0400 Systolic blood pressure 104 mm[Hg] Briseyda Pride MD Work Phone: [facility] 07-14-2022 14:22-0400 Body weight 75.3 kg Isaias Bradley MD Work Phone: [facility] 07-14-2022 14:22-0400 Diastolic blood pressure 72 mm[Hg] Isaias Bradley MD Work Phone: [facility] 07-14-2022 14:22-0400 Heart rate 96 /min Isaias Bradley MD Work Phone: [facility] 07-14-2022 14:22-0400 Systolic blood pressure 102 mm[Hg] Isaias Bradley MD Work Phone: [facility] 07-11-2022 14:06-0400 Diastolic blood pressure 64 mm[Hg] [facility] Work Phone: 07-11-2022 14:06-0400 Heart rate 73 /min [facility] Work Phone: 07-11-2022 14:06-0400 Respiratory rate 16 /min [facility] Work Phone: 07-11-2022 14:06-0400 SaO2% (BldA) [Mass fraction] 99 % [facility] Work Phone: 07-11-2022 14:06-0400 Systolic blood pressure 118 mm[Hg] [facility] Work Phone: 07-11-2022 12:30-0400 Body temperature 98.3 [degF] [facility] Work Phone: 07-11-2022 11:28-0400 Body height 165.1 cm [facility] Work Phone: 07-11-2022 11:28-0400 Body mass index (BMI) [Ratio] 26.9 kg/m2 [facility] Work Phone: 07-11-2022 11:28-0400 Body weight 73.48 kg [facility] Work Phone: 07-05-2022 07:20-0400 Body temperature 98.2 [degF] Alayna Rasmussen MD Work Phone: [facility] 07-05-2022 07:20-0400 Diastolic blood pressure 55 mm[Hg] Alayna Rasmussen MD Work Phone: [facility] 07-05-2022 07:20-0400 Heart rate 70 /min Alayna Rasmussen MD Work Phone: [facility] 07-05-2022 07:20-0400 Respiratory rate 16 /min Alayna Rasmussen MD Work Phone: [facility] 07-05-2022 07:20-0400 SaO2% (BldA) [Mass fraction] 97 % Alayna Rasmussen MD Work Phone: [facility] 07-05-2022 07:20-0400 Systolic blood pressure 103 mm[Hg] Alayna Rasmussen MD Work Phone: [facility] 06-26-2022 11:00-0400 Body height 165.1 cm Alayna Rasmussen MD Work Phone: [facility] 06-25-2022 03:35-0400 Body mass index (BMI) [Ratio] 30.17 kg/m2 Alayna Rasmussen MD Work Phone: [facility] 06-25-2022 03:35-0400 Body weight 82.24 kg Alayna Rasmussen MD Work Phone: [facility] 04-19-2022 11:17-0400 Body temperature 97.11 [degF] Chelle Gonzales APRN.HEALTH CLUB MANAGER Work Phone: [facility] 04-19-2022 11:17-0400 Body weight 79.56 kg Chelle Gonzales APRN.HEALTH CLUB MANAGER Work Phone: [facility] 04-19-2022 11:17-0400 Diastolic blood pressure 62 mm[Hg] Chelle Gonzales APRN.HEALTH CLUB MANAGER Work Phone: [facility] 04-19-2022 11:17-0400 Heart rate 101 /min Chelle Praisler-Wood FIELD RESEARCH ASSISTANT.HEALTH CLUB MANAGER Work Phone: [facility] 04-19-2022 11:17-0400 Respiratory rate 18 /min Chelle Praisler-Wood FIELD RESEARCH ASSISTANT.HEALTH CLUB MANAGER Work Phone: [facility] 04-19-2022 11:17-0400 SaO2% (BldA) [Mass fraction] 98 % Chelle Praisler-Wood FIELD RESEARCH ASSISTANT.HEALTH CLUB MANAGER Work Phone: [facility] 04-19-2022 11:17-0400 Systolic blood pressure 98 mm[Hg] Chelle Praisler-Wood FIELD RESEARCH ASSISTANT.HEALTH CLUB MANAGER Work Phone: [facility] 04-01-2022 14:26-0400 Diastolic blood pressure 72 mm[Hg] Abby Haagen FIELD RESEARCH ASSISTANT.HEALTH CLUB MANAGER Work Phone: [facility] 04-01-2022 14:26-0400 Heart rate 104 /min Abby Haagen FIELD RESEARCH ASSISTANT.HEALTH CLUB MANAGER Work Phone: [facility] 04-01-2022 14:26-0400 Respiratory rate 18 /min Abby Haagen FIELD RESEARCH ASSISTANT.HEALTH CLUB MANAGER Work Phone: [facility] 04-01-2022 14:26-0400 SaO2% (BldA) [Mass fraction] 98 % Abby Haagen FIELD RESEARCH ASSISTANT.HEALTH CLUB MANAGER Work Phone: [facility] 04-01-2022 14:26-0400 Systolic blood pressure 104 mm[Hg] Abby Haagen FIELD RESEARCH ASSISTANT.HEALTH CLUB MANAGER Work Phone: [facility] 02-09-2022 08:30-0400 Body temperature 97.2 [degF] Amanda Casarez FIELD RESEARCH ASSISTANT.HEALTH CLUB MANAGER Work Phone: [facility] 02-09-2022 08:30-0400 Body weight 79.83 kg Amanda Casarez FIELD RESEARCH ASSISTANT.HEALTH CLUB MANAGER Work Phone: [facility] 02-09-2022 08:30-0400 Diastolic blood pressure 68 mm[Hg] Amanda Casarez FIELD RESEARCH ASSISTANT.HEALTH CLUB MANAGER Work Phone: [facility] 02-09-2022 08:30-0400 Heart rate 92 /min Amanda Casarez APRN.HEALTH CLUB MANAGER Work Phone: [facility] 02-09-2022 08:30-0400 Respiratory rate 16 /min Amanda Casarez APRN.HEALTH CLUB MANAGER Work Phone: [facility] 02-09-2022 08:30-0400 SaO2% (BldA) [Mass fraction] 99 % Amanda Casarez APRN.HEALTH CLUB MANAGER Work Phone: [facility] 02-09-2022 08:30-0400 Systolic blood pressure 108 mm[Hg] Amanda Casarez APRN.HEALTH CLUB MANAGER Work Phone: [facility] 02-04-2022 08:46-0400 Body height 165.1 cm Ahmed Elghawy DO Work Phone: [facility] 02-04-2022 08:46-0400 Body temperature 96.91 [degF] Ahmed Elghawy DO Work Phone: [facility] 02-04-2022 08:46-0400 Body weight 80.92 kg Ahmed Elghawy DO Work Phone: [facility] 02-04-2022 08:46-0400 Diastolic blood pressure 77 mm[Hg] Ahmed Elghawy DO Work Phone: [facility] 02-04-2022 08:46-0400 Heart rate 86 /min Ahmed Elghawy DO Work Phone: [facility] 02-04-2022 08:46-0400 Systolic blood pressure 118 mm[Hg] Ahmed Elghawy DO Work Phone: [facility] 02-02-2022 13:11-0400 Body weight 80.69 kg Briseyda Pride MD Work Phone: [facility] 02-02-2022 13:11-0400 Diastolic blood pressure 53 mm[Hg] Briseyda Pride MD Work Phone: [facility] 02-02-2022 13:11-0400 Heart rate 80 /min Briseyda Pride MD Work Phone: [facility] 02-02-2022 13:11-0400 Systolic blood pressure 100 mm[Hg] Briseyda Pride MD Work Phone: [facility] 01-27-2022 08:30-0400 Body height 165.1 cm Jamil Bryant MD Work Phone: [facility] 01-27-2022 08:30-0400 Body weight 80.29 kg Jamil Bryant MD Work Phone: [facility] 01-27-2022 08:30-0400 Diastolic blood pressure 92 mm[Hg] Jamil Bryant MD Work Phone: [facility] 01-27-2022 08:30-0400 Heart rate 70 /min Jamil Bryant MD Work Phone: [facility] 01-27-2022 08:30-0400 Respiratory rate 20 /min Jamil Bryant MD Work Phone: [facility] 01-27-2022 08:30-0400 Systolic blood pressure 118 mm[Hg] Jamil Bryant MD Work Phone: [facility] 09-15-2020 12:17-0500 Body Temperature 97.2 [degF] [facility] 09-15-2020 12:17-0500 BP Diastolic 74 mm[Hg] [facility] 09-15-2020 12:17-0500 BP Systolic 107 mm[Hg] [facility] 09-15-2020 12:17-0500 Pulse (Heart Rate) 81 /min [facility] 09-15-2020 12:17-0500 Pulse Oximetry 100 % [facility] 09-15-2020 12:17-0500 Respiratory Rate 14 /min [facility] 09-14-2020 18:51-0500 BMI (Body Mass Index) 23.48 kg/m2 [facility] 09-14-2020 18:51-0500 Body weight 66 kg [facility] 09-14-2020 18:51-0500 Height 167.6 cm [facility] 07-21-2019 10:51-0400 Body Temperature 98.71 [degF] [facility] [place] [place] 07-21-2019 10:51-0400 Body weight 68.27 [facility] [place] 07-21-2019 10:51-0400 BP Diastolic 73 mm[Hg] [facility] [employer] [facility] [place] 07-21-2019 10:51-0400 BP Systolic 116 mm[Hg] [facility] [place] 07-21-2019 10:51-0400 Pulse (Heart Rate) 80 /min [facility] [facility], [place] 07-21-2019 10:51-0400 Pulse Oximetry 100 % [facility] [employer] [place] 07-21-2019 10:51-0400 Respiratory Rate 20 /min [facility] [place] Encounters Encounter Date Encounter Type Care Provider Facility Start: 09-03-2025 End: 09-03-2025 ambulatory KENISHA DAILY Facility:[facility] Start: 08-26-2025 End: 08-28-2025 ambulatory Mary Frankfort Facility:[facility] Start: 07-22-2025 Non-patient / Non-visit Dr. Erin Christianson MD -[facility] Work Phone: Start: 07-21-2025 Non-patient / Non-visit Dr. Erin Christianson MD -[facility] Work Phone: Start: 07-20-2025 ambulatory Mode Christianson [facility] Start: 07-20-2025 End: 07-22-2025 Evaluation and management of inpatient Dr. Mode Christianson MD -[facility] Work Phone: Start: 07-19-2025 End: 07-19-2025 Emergency department patient visit TERRANCE LOU [facility] Start: 06-17-2025 Non-patient / Non-visit Dr. Erin Christianson MD -[facility] Work Phone: Start: 06-16-2025 End: 06-17-2025 ambulatory Mary Wang Facility:[facility] Start: 06-16-2025 End: 06-17-2025 Evaluation and management of inpatient Dr. Mary Wang MD -[facility] Work Phone: Start: 06-16-2025 End: 06-17-[address] 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) Start: 06-13-2025 End: 06-13-2025 Telemedicine consultation with patient Briseyda Pride MD Work Phone: Endocrinology Start: 06-12-2025 End: 06-12-20[address] Andre RD Endocrinology Comment on above: virtual visit prep Start: 06-10-2025 End: 06-12-2025 ambulatory [facility] End[facility]ology Comment on above: Please share blood s ugar readings prior to virtual visit on Monday Start: 06-10-2025 End: 06-12-2025 E-mail encounter from caregiver [facility] Endocrinology Start: 06-10-2025 End: 06-10-2025 Follow-up encounter Isaias Bradley MD Work Phone: [facility] Start: 06-09-2025 End: 06-09-2025 ambulatory ISAIAS BRADLEY Facility:[facility] Start: 06-09-2025 End: 06-09-2025 Subsequent hospital visit by physician Mickey [facility] Work Phone: Radiology Comment on above: Contusion of multipl e sites of left shoulder and upper arm, subsequent encounter [S40.012D, S40.022D] Start: 06-09-2025 End: 06-09-2025 Patient encounter procedure Isaias Bradley MD Work Phone: [facility] Comment on above: Contusion of multipl e sites of left shoulder and upper arm, subsequent encounter (Primary Dx); Contusion of left hip, subsequent encounter; Severe episode of recurrent major depressive disorder, without psychotic features (HCC); Type 2 diabetes mellitus with hypoglycemia without coma, without long-term current use of insulin (HCC); SLE (systemic lupus erythematosus related syndrome) (HCC); Seizure-like activity (HCC); Mild intermittent asthma without complication (HCC); Esophagitis; Adrenal insufficiency (Slade's disease) (HCC); Post-surgical hypothyroidism; Chronic post-traumatic stress disorder (PTSD) Start: 06-09-2025 End: 06-09-2025 ambulatory ISAIAS Prajapati MIRNA Facility:[facility] Start: 06-06-2025 End: 06-06-2025 Emergency department patient visit ISAIAS PRO [facility] Start: 06-05-2025 End: 06-05-2025 [facility] Start: 06-04-2025 End: 06-04-2025 [facility] FIELD RESEARCH ASSISTANT.HEALTH CLUB MANAGER Work Phone: Psychiatry Comment on above: Panic disorder with agoraphobia (Primary Dx); Mixed obsessional thoughts and acts; Chronic post-traumatic stress disorder (PTSD); Psychosocial stressors; Major depressive disorder, recurrent episode, moderate (HCC); Encounter for long-term (current) use of medications Start: 06-04-2025 End: 06-04-2025 ambulatory [facility] Facility:[facility] Start: 05-05-2025 End: 05-05-2025 Emergency department patient visit ISAIAS PRO [facility] Start: 04-02-2025 End: 04-02-2025 [facility] FIELD RESEARCH ASSISTANT.HEALTH CLUB MANAGER Work Phone: Psychiatry Comment on above: Mixed obsessional th oughts and acts (Primary Dx); Panic disorder with agoraphobia; Chronic post-traumatic stress disorder (PTSD); Psychosocial stressors; Encounter for long-term (current) use of medications Start: 04-02-2025 End: 04-02-[facility] Start: 03-18-2025 End: 03-19-2025 Refill Isaias Bradley MD Work Phone: [facility] Comment on above: Refill Request Start: 2025 End: 2025 [facility] Isaias Bradley MD Work Phone: [facility] Comment on above: Adrenal crisis (HCC) (Primary Dx); Upper respiratory tract infection, unspecified type; Other migraine without status migrainosus, intractable; Seizure-like activity (HCC); Migraine variant with headache; Mild intermittent asthma without complication (HCC); Graves disease; Weakness; Prediabetes; Recurrent major depression in partial remission; Mixed anxiety depressive disorder; DIOGO (generalized anxiety disorder); Anemia, unspecified type; Adrenal insufficiency (Wabasso's disease) (HCC) Start: 02-20-2025 Non-patient / Non-visit [facility] Work Phone: Start: 02-19-2025 Non-patient / Non-visit [facility] Work Phone: Start: 02-18-2025 Non-patient / Non-visit [facility] Work Phone: Start: 02-17-2025 Non-patient / Non-visit [facility] Work Phone: Start: 02-16-2025 End: 02-16-2025 ambulatory Oliver Tripp Facility:[facility] Start: 02-16-2025 End: 02-16-2025 Non-patient / Non-visit Dr. Aneudy Reese MD -[facility] Work Phone: Start: 02-16-2025 ambulatory Mary Wang Facility:[facility] Start: 02-16-2025 End: 02-20-2025 Evaluation and management of inpatient Dr. Mary Wang MD -[facility] Work Phone: Start: 02-05-2025 End: 02-05-2025 ambulatory Isaias Bradley MD Work Phone: [facility] [place] Start: 02-05-2025 End: 02-05-2025 Follow-up encounter Isaias Bradley MD Work Phone: [facility] [place] Comment on above: Er follow up Start: 02-02-2025 End: 02-02-2025 Emergency department patient visit ISAIAS BRADLEY [facility] Start: 01-13-2025 End: 01-13-2025 ambulatory Kenisha Daily APRN.HEALTH CLUB MANAGER Work Phone: Psychiatry Comment on above: Xanax Start: 01-01-2025 End: 01-01-2025 [facility] Kenisha Daily APRN.HEALTH CLUB MANAGER Work Phone: Psychiatry Comment on above: Panic disorder with agoraphobia (Primary Dx); Chronic post-traumatic stress disorder (PTSD); Encounter for long-term (current) use of medications; Mixed obsessional thoughts and acts; Psychosocial stressors; Major depressive disorder, recurrent episode, moderate (HCC) Start: 01-01-2025 End: 01-01-2025 ambulatory KENISHA DAILY Facility:[facility] Start: 12-18-2024 End: 12-18-2024 ambulatory Isaias Bradley MD Work Phone: [facility] [place] Comment on above: Acute otitis media, right (Primary Dx) Start: 12-18-2024 End: 12-18-2024 Telemedicine consultation with patient Isaias Bradley MD Work Phone: [facility] [place] Start: 12-17-2024 End: 12-17-2024 Telephone encounter Isaias Bradley MD Work Phone: [facility] [place] Comment on above: Patient Question Start: 12-16-2024 End: 12-16-2024 Refill Kenisha Daily APRN.HEALTH CLUB MANAGER Work Phone: Psychiatry Comment on above: Refill Request Start: 12-10-2024 End: 12-10-2024 Emergency department patient visit Dr. Elfego Anna DO -Emergency Department Work Phone: Start: 11-20-2024 End: 11-20-2024 [facility] Kenisha Daily APRN.HEALTH CLUB MANAGER Work Phone: Psychiatry Comment on above: Major depressive dis order, recurrent episode, moderate (HCC) (Primary Dx); Panic disorder with agoraphobia; Chronic post-traumatic stress disorder (PTSD); Mixed obsessional thoughts and acts; Encounter for long-term (current) use of medications; Psychosocial stressors Start: 11-20-2024 End: 11-20-2024 ambulatory [facility] lAo DAILY Facility:[facility] Start: 11-10-2024 End: 11-10-2024 Emergency department patient visit ISAIAS PRO [facility] Start: 10-24-2024 End: 10-24-2024 Refill Kenisha Daily APRN.HEALTH CLUB MANAGER Work Phone: Psychiatry Comment on above: Refill Request Start: 10-20-2024 End: 10-20-2024 Emergency department patient visit LEANDRO JUSTIN [facility] Start: 10-07-2024 End: 10-07-2024 Emergency department patient visit ISAIAS PRO [facility] Start: 10-02-2024 End: 10-02-2024 Refill Briseyda Pride MD Work Phone: Endocrinology Comment on above: Refill Request Start: 09-25-2024 End: 09-25-2024 ambulatory [facility] Facility:[facility] Start: 09-25-2024 End: 09-25-2024 Patient encounter procedure Beckie Doe MD Work Phone: Endocrinology Comment on above: No-show for appointm ent (Primary Dx) Mixed obsessional th oughts and acts (Primary Dx); Panic disorder with agoraphobia; Chronic post-traumatic stress disorder (PTSD); Major depressive disorder, recurrent episode, moderate (HCC); Encounter for long-term (current) use of medications Start: 09-25-2024 End: 09-25-2024 Telemedicine consultation with patient Beckie Doe MD Work Phone: Endocrinology Start: 09-10-2024 End: 09-11-2024 Refill Briseyda Pride MD Work Phone: Endocrinology Comment on above: Refill Request Start: 09-04-2024 End: 09-04-2024 ambulatory Kenisha Daliy APRN.HEALTH CLUB MANAGER Work Phone: Psychiatry Comment on above: Update on new med Start: 08-27-2024 End: 08-28-2024 ambulatory Isaias Bradley MD Work Phone: [facility] [place] Comment on above: Dizziness Start: 08-26-2024 End: 08-26-2024 Emergency department patient visit ISAIAS PRO [facility] Start: 08-21-2024 End: 08-21-2024 [facility] Kenisha Daily APRN.HEALTH CLUB MANAGER Work Phone: Psychiatry Comment on above: Panic disorder with agoraphobia (Primary Dx); Chronic post-traumatic stress disorder (PTSD); Encounter for long-term (current) use of medications; Mixed obsessional thoughts and acts; Major depressive disorder, recurrent episode, moderate (HCC) Start: 08-19-2024 End: 08-19-2024 Telephone encounter Briseyda Pride MD Work Phone: [facility] [place] Comment on above: Medication Preauthor ization (Mounjaro) Start: 08-16-2024 End: 08-16-2024 Telephone encounter Isaias Bradley MD Work Phone: [facility] [place] Comment on above: Patient Update Start: 08-15-2024 End: 08-15-2024 Emergency department patient visit ISAIAS PRO [facility] Start: 08-07-2024 End: 08-08-2024 Telephone encounter Isaias Bradley MD Work Phone: [facility] [place] Comment on above: Appointment Start: 08-07-2024 End: 08-07-2024 ambulatory Isaias Bradley MD Work Phone: [facility] [place] Comment on above: Pain in both lower e xtremities (Primary Dx); Acute bilateral low back pain with right-sided sciatica Start: 08-07-2024 End: 08-07-2024 Telemedicine consultation with patient Isaias Bradley MD Work Phone: [facility] [place] Start: 08-05-2024 End: 08-27-2024 Telephone encounter Briseyda Pride MD Work Phone: Endocrinology Comment on above: Prior Auth Request Start: 08-01-2024 End: 08-01-2024 ambulatory Isaias Bradley MD Work Phone: [facility] [place] Comment on above: Pain in legs Refill Request Start: 07-16-2024 End: 07-16-2024 ambulatory Isaias Bradley MD Work Phone: [facility] [place] Comment on above: Migraine meds Start: 07-10-2024 End: 07-11-2024 ambulatory Kenisha Daily APRN.HEALTH CLUB MANAGER Work Phone: Psychiatry Comment on above: Medication Start: 06-12-2024 End: 06-12-2024 Patient encounter procedure Thomas Ribera MD Work Phone: Pain Management Comment on above: No-show for appointm ent (Primary Dx) Start: 05-27-2024 ambulatory Isaias Bradley MD Work Phone: [facility] [place] Comment on above: Medication Refill Request Start: 05-22-2024 End: 05-22-2024 [facility] Kenisha Daily APRN.HEALTH CLUB MANAGER Work Phone: Psychiatry Comment on above: Mixed obsessional th oughts and acts (Primary Dx); Chronic post-traumatic stress disorder (PTSD); Panic disorder with agoraphobia Start: 05-13-2024 Chart abstracting Isaias Sheriff MD Work Phone: [facility] [place] Start: 05-11-2024 End: 05-16-2024 Evaluation and management of inpatient DR SILAS CRISTOBAL MD [facility] Start: 05-10-2024 ambulatory Isaias Bradley MD Work Phone: [facility] [place] Comment on above: Need advice Start: 05-01-2024 ambulatory Kenisha garnica FIELD RESEARCH ASSISTANT.HEALTH CLUB MANAGER Work Phone: Psychiatry Comment on above: Need meds Start: 04-06-2024 Telephone encounter Isaias Bradley MD Work Phone: [facility] [place] Comment on above: Appointment; Consult Start: 04-06-2024 End: 04-06-2024 ambulatory Isaias Bradley MD Work Phone: [facility] [place] Comment on above: Chronic pain syndrom e (Primary Dx); Hypoglycemia; Elevated liver enzymes; Fatty liver; Adrenal insufficiency (Wabasso's disease) (HCC) Start: 04-06-2024 End: 04-06-2024 Telemedicine consultation with patient Isaias Bradley MD Work Phone: [facility] [place] Start: 04-03-2024 End: 04-03-2024 [facility] Kenisha Daily FIELD RESEARCH ASSISTANT.HEALTH CLUB MANAGER Work Phone: Psychiatry Comment on above: Severe episode of re current major depressive disorder, without psychotic features (HCC) (Primary Dx); Chronic post-traumatic stress disorder (PTSD); Mixed obsessional thoughts and acts; Panic disorder with agoraphobia Start: 04-01-2024 ambulatory Isaias Bradley MD Work Phone: [facility] Comment on above: Forwarded to Dr. Radha platt Start: 03-29-2024 End: 03-29-2024 Telemedicine consultation with patient Isaias Bradley MD Work Phone: [facility] [place] Start: 03-29-2024 End: 03-29-2024 ambulatory Isaias Bradley MD Work Phone: [facility] [place] Comment on above: NO SHOW (Primary Dx) Rescedule Start: 03-28-2024 ambulatory Kenisha garnica FIELD RESEARCH ASSISTANT.HEALTH CLUB MANAGER Work Phone: Psychiatry Comment on above: Need mediation Start: 03-22-2024 Telephone encounter Briseyda perez MD Work Phone: [facility] [place] Comment on above: Insurance Authorizat ion (tirzepatide (MOUNJARO) 2.5 mg/0.5 mL pen injector ) Insurance Authorizat ion (Denied tirzepatide (MOUNJARO) 2.5 mg/0.5 mL pen injector ) Start: 03-15-2024 End: 03-15-2024 ambulatory Briseyda Pride MD Work Phone: Endocrinology Comment on above: Type 2 diabetes sima itus with hypoglycemia without coma, without long-term current use of insulin ([facility]) [E11.649] (Primary Dx); 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.40]; Class 2 severe obesity due to excess calories with serious comorbidity and body mass index (BMI) of 37.0 to 37.9 in adult ([facility]) [E66.01, Z68.37]; 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, E06.3] Start: 03-15-2024 End: 03-15-2024 Telemedicine consultation with patient Briseyda Pride MD Work Phone: Endocrinology Start: 03-08-2024 Emergency department patient visit ISAIAS Wilson KASHIF [facility] Start: 03-07-2024 ambulatory Alix najera MD Work Phone: Neurology Comment on above: Pharmacy needs scrip t Refill Request Start: 02-28-2024 End: 02-28-2024 ambulatory Kenisha Daily APRN.HEALTH CLUB MANAGER Work Phone: Psychiatry Comment on above: NO SHOW (Primary Dx) Start: 02-28-2024 End: 02-28-2024 Telemedicine consultation with patient Kenisha Prajapati [place]ola KING.HEALTH CLUB MANAGER Work Phone: Psychiatry Start: 02-14-2024 End: 02-14-2024 ambulatory Kenisha Daily APRN.HEALTH CLUB MANAGER Work Phone: Psychiatry Comment on above: NO SHOW (Primary Dx) Did I miss ?? Start: 02-14-2024 End: 02-14-2024 Telemedicine consultation with patient Kenisha Prajapati [place]ola KING.HEALTH CLUB MANAGER Work Phone: Psychiatry Start: 02-12-2024 ambulatory Isaias Bradley MD Work Phone: [facility] [place] Comment on above: Americo form Start: 02-11-2024 ambulatory Isaias Bradley MD Work Phone: [facility] [place] Comment on above: Americo quinones Start: 01-22-2024 Refill Kenisha garnica FIELD RESEARCH ASSISTANT.HEALTH CLUB MANAGER Work Phone: Psychiatry Comment on above: Refill Request Start: 01-11-2024 ambulatory Kenisha garnica FIELD RESEARCH ASSISTANT.HEALTH CLUB MANAGER Work Phone: [facility] Start: 01-11-2024 Patient encounter procedure Kenisha Daily FIELD RESEARCH ASSISTANT.HEALTH CLUB MANAGER Work Phone: Psychiatry Comment on above: Schedule appointment Start: 12-27-2023 ambulatory Isaias Bradley MD Work Phone: [facility] [place] Comment on above: Stitches Start: 12-27-2023 End: 12-27-2023 Patient encounter procedure Kenisha Daily FIELD RESEARCH ASSISTANT.HEALTH CLUB MANAGER Work Phone: Psychiatry Comment on above: APPOINTMENT CANCELLE D (Primary Dx) Start: 12-27-2023 End: 12-27-2023 Telemedicine consultation with patient Kenisha Daily APRN.HEALTH CLUB MANAGER Work Phone: [facility] Start: 12-21-2023 Refill Briseyda boss MD Work Phone: Endocrinology Comment on above: Refill Request Start: 12-13-2023 End: 12-13-2023 [facility] Kenisha Daily FIELD RESEARCH ASSISTANT.HEALTH CLUB MANAGER Work Phone: Psychiatry Comment on above: Major depressive dis order, recurrent episode, moderate (HCC) (Primary Dx); Mixed obsessional thoughts and acts; Panic disorder with agoraphobia; Chronic post-traumatic stress disorder (PTSD) Start: 12-07-2023 ambulatory Kenisha garnica FIELD RESEARCH ASSISTANT.HEALTH CLUB MANAGER Work Phone: Psychiatry Comment on above: Clomipramine Start: 12-06-2023 End: 12-06-2023 ambulatory Isaias Bradley MD Work Phone: [facility] [place] Comment on above: Migraine variant wit h headache (Primary Dx); Class 2 obesity with body mass index (BMI) of 35.0 to 35.9 in adult, unspecified obesity type, unspecified whether serious comorbidity present Start: 12-06-2023 End: 12-06-2023 Telemedicine consultation with patient Isaias Bradley MD Work Phone: [facility] Start: 11-29-2023 End: 11-29-2023 [facility] Kenisha Daily APRN.HEALTH CLUB MANAGER Work Phone: Psychiatry Comment on above: Severe episode of re current major depressive disorder, without psychotic features (HCC) (Primary Dx); Mixed obsessional thoughts and acts; Panic disorder with agoraphobia; Chronic post-traumatic stress disorder (PTSD) Start: 11-23-2023 ambulatory Isaias Bradley MD Work Phone: [facility] [place] Comment on above: UTI Start: 10-27-2023 Telephone encounter Isaias Bradley MD Work Phone: [facility] Comment on above: Received Outside Med ical Records Start: 09-27-2023 End: 09-27-2023 Patient encounter procedure Kenisha Daily APRN.HEALTH CLUB MANAGER Work Phone: Psychiatry Comment on above: APPOINTMENT CANCELLE D (Primary Dx) Start: 09-27-2023 End: 09-27-2023 Telemedicine consultation with patient Kenisha Alo Daily APRN.HEALTH CLUB MANAGER Work Phone: [facility] Start: 09-22-2023 End: 09-22-2023 ambulatory Briseyda Pride MD Work Phone: Endocrinology Comment on above: Controlled type 2 di abetes mellitus without complication, without long-term current use of insulin (HCC) (Primary Dx); ACI (adrenal cortical insufficiency) (HCC); 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 Start: 09-22-2023 End: 09-22-2023 Telemedicine consultation with patient Briseyda Pride MD Work Phone: [facility] Start: 09-21-2023 Refill Isaias Bradley MD Work Phone: [facility] [place] Comment on above: Refill Request Start: 09-20-2023 End: 09-20-2023 [facility] Kenisha Daily APRN.HEALTH CLUB MANAGER Work Phone: Psychiatry Comment on above: Major depressive dis order, recurrent episode, moderate (HCC) (Primary Dx); Mixed obsessional thoughts and acts; Panic disorder with agoraphobia; Chronic post-traumatic stress disorder (PTSD) Start: 09-13-2023 End: 09-13-2023 ambulatory Kenisha Daily APRN.HEALTH CLUB MANAGER Work Phone: Psychiatry Comment on above: NO SHOW (Primary Dx) Start: 09-13-2023 End: 09-13-2023 Telemedicine consultation with patient Kenisha J Abimbola KING.HEALTH CLUB MANAGER Work Phone: [facility] Start: 09-04-2023 End: 09-04-2023 ambulatory Isaias Bradley MD Work Phone: [facility] [place] Comment on above: NO SHOW (Primary Dx) Start: 09-04-2023 End: 09-04-2023 Telemedicine consultation with patient Isaias Bradley MD Work Phone: [facility] Start: 08-30-2023 Telephone encounter Kenisha doran APRN.HEALTH CLUB MANAGER Work Phone: [facility] [place] Comment on above: Patient Update Start: 08-23-2023 End: 08-23-2023 Refill Isaias Bradley MD Work Phone: [facility] [place] Comment on above: Refill Request NO SHOW (Primary Dx) Start: 08-17-2023 End: 08-17-2023 [facility] Kenisha Daily APRN.HEALTH CLUB MANAGER Work Phone: Psychiatry Comment on above: Major depressive dis order, recurrent episode, moderate (HCC) (Primary Dx); Mixed obsessional thoughts and acts; Panic disorder with agoraphobia; Chronic post-traumatic stress disorder (PTSD) Start: 08-09-2023 End: 08-09-2023 Subsequent hospital visit by physician Nisa Carlton MD Work Phone: Gastroenterology Comment on above: Diarrhea, unspecifie d type [R19.7] Start: 08-02-2023 End: 08-02-2023 Telephone encounter Anna Hollingsworth RNdeburring technician Comment on above: Education Of Patient /family; Appointment (Appointment confirmed for 08/09/2023) Major depressive dis order, recurrent episode, moderate (HCC) (Primary Dx); Mixed obsessional thoughts and acts; Panic disorder with agoraphobia; Chronic post-traumatic stress disorder (PTSD) Start: 08-02-2023 End: 08-02-2023 Telemedicine consultation with patient Kenisha Alo Daily APRN.HEALTH CLUB MANAGER Work Phone: [facility] Start: 07-26-2023 End: 07-26-2023 [facility] Kenisha Prajapati Abimbola KING.HEALTH CLUB MANAGER Work Phone: Psychiatry Comment on above: Severe episode of re current major depressive disorder, with psychotic features (HCC) (Primary Dx); Mixed obsessional thoughts and acts; Panic disorder with agoraphobia; Chronic post-traumatic stress disorder (PTSD) Medication Authoriza tion Start: 07-24-2023 End: 07-24-2023 Emergency department patient visit [facility] Work Phone: Start: 07-22-2023 End: 07-22-2023 ambulatory [facility] Facility:[facility] Start: 07-12-2023 Refill Samantha Bryson Work Phone: Psychiatry Comment on above: Refill Request Start: 07-11-2023 Telephone encounter Isaias Bradley MD Work Phone: [facility] Comment on above: CMN form Start: 07-05-2023 Refill Samantha Bryson Work Phone: Psychiatry Comment on above: Refill Request Start: 06-21-2023 ambulatory Isaias Bradley MD Work Phone: [facility] Comment on above: Blood work Start: 06-15-2023 Telephone encounter Briseyda perez MD Work Phone: Endocrinology Start: 06-14-2023 End: 06-14-2023 Telemedicine consultation with patient Isaias Bradley MD Work Phone: [facility] Start: 06-14-2023 End: 06-14-2023 ambulatory Isaias Bradley MD Work Phone: Family [facility] Comment on above: Right upper quadrant abdominal pain (Primary Dx); Right lower quadrant abdominal pain; Nausea and vomiting, unspecified vomiting type; Adrenal insufficiency (Wabasso's disease) (HCC); Chronic constipation Sleeping Start: 06-13-2023 ambulatory Briseyda boss MD Work Phone: Endocrinology Comment on above: Steroids Start: 06-09-2023 End: 06-09-2023 Emergency department patient visit [facility] Work Phone: Start: 06-07-2023 ambulatory Kenisha garnica APRNRENO Work Phone: Psychiatry Comment on above: Ativan Start: 06-02-2023 Refill Isaias Bradley MD Work Phone: [facility] Comment on above: Refill Request Start: 05-30-2023 Telephone encounter Isaias Bradley MD Work Phone: [facility] Comment on above: Results Erroneous encounter- disregard Start: 05-18-2023 End: 05-18-2023 ambulatory Isaias Bradley MD Work Phone: [facility] Comment on above: Hepatitis, acute (Pr imary Dx); Adrenal insufficiency (Slade's disease) (HCC); SLE (systemic lupus erythematosus related syndrome) (HCC) Start: 05-18-2023 End: 05-18-2023 Telemedicine consultation with patient Isaias Bradley MD Work Phone: [facility] Start: 05-18-2023 Telephone encounter Isaias Bradley MD Work Phone: Family [facility] Comment on above: Orders; Appointment Start: 05-03-2023 Evaluation and manag ement of inpatient ISAIAS CUELLAR ([facility]) [facility] Facility:[id number] Start: 05-02-2023 Telephone encounter Briseyda perez MD Work Phone: Endocrinology Comment on above: Patient Update Start: 04-26-2023 Refill Isaias Bradley MD Work Phone: [facility] Comment on above: Refill Request Start: 04-19-2023 End: 04-19-2023 ambulatory Isaias Bradley MD Work Phone: [facility] Comment on above: Anxiety with depress ion (Primary Dx); Seizure-like activity (HCC); Migraine variant with headache; Adrenal insufficiency (Slade's disease) (HCC) Start: 04-19-2023 End: 04-19-2023 Telemedicine consultation with patient Isaias Bradley MD Work Phone: [facility] Start: 04-13-2023 ambulatory Isaias Bradley MD Work Phone: [facility] Start: 04-13-2023 End: 04-13-2023 Patient encounter procedure Thor Goetz MD Work Phone: [facility] Comment on above: Urinary frequency (P rimary Dx) Need Ativan refilled Start: 04-06-2023 End: 04-06-2023 ambulatory Nurse Intm/Famp Triage [facility] Work Phone: Nurse Phone Triage Comment on above: Psychiatric Problem Start: 03-16-2023 End: 03-17-2023 ambulatory [facility] Facility[facility] Start: 2023 ambulatory Isaias Bradley MD Work Phone: [facility] Comment on above: Vimpat needs sent to pharmacy Start: 02-23-2023 End: 02-23-2023 Emergency department patient visit Dr. Isaias Bradley Work Phone: [facility] Start: 02-23-2023 Telephone encounter Briseyda perez MD Work Phone: Endocrinology Comment on above: Medication Problem ( Steroid Shot) Patient Update Start: 02-16-2023 End: 02-16-2023 [facility] Kenisha Daily APRN.CNP Work Phone: Psychiatry Comment on above: Mixed obsessional th oughts and acts; Panic disorder with agoraphobia; Chronic post-traumatic stress disorder (PTSD); Major depressive disorder, recurrent episode, moderate (HCC) Refill Request Start: 02-14-2023 End: 02-14-2023 Emergency department patient [facility]aias Bradley [facility] Start: 02-12-2023 End: 02-12-2023 Emergency department patient visit Dr[facility] Isaias Bradley [facility] Start: 02-07-2023 Telephone encounter Isaias Bradley MD Work Phone: [facility] Comment on above: Insurance Authorizat ion (tizanidine) Start: 02-05-2023 End: 02-07-2023 Evaluation and management of inpatient [facility] Facility:[facility] Start: 02-05-2023 Non-patient / Non-visit Dr. Angy Bradley Work Phone: [facility] Start: 02-04-2023 End: 02-05-2023 [facility] Start: 02-01-2023 End: 02-01-2023 Patient encounter procedure Isaias Bradley MD Work Phone: [facility] Comment on above: Lumbar pain (Primary Dx) Mixed obsessional th oughts and acts; Panic disorder with agoraphobia; Chronic post-traumatic stress disorder (PTSD); Major depressive disorder, recurrent episode, moderate (HCC) Start: 01-17-2023 End: 01-17-2023 Patient encounter procedure Jose Guadalupe Alexander APRN.CNP Work Phone: [facility] Comment on above: Viral syndrome (Prim zander Dx); Sore throat Start: 01-12-2023 Telephone encounter Isaias Bradley MD Work Phone: [facility] Comment on above: Consult Start: 01-12-2023 End: 01-12-2023 ambulatory Isaias Bradley MD Work Phone: [facility] Comment on above: Chronic pain syndrom e (Primary Dx); Seizure-like activity (HCC); Other migraine without status migrainosus, intractable; Noninfectious gastroenteritis, unspecified type; Adrenal insufficiency (Wabasso's disease) (HCC); SLE (systemic lupus erythematosus related syndrome) (HCC); Post-surgical hypothyroidism; Recurrent major depression in partial remission (HCC) Start: 01-12-2023 End: 01-12-2023 Telemedicine consultation with patient Isaias Bradley MD Work Phone: [facility] Start: 01-10-2023 ambulatory Isaias Bradley MD Work Phone: [facility] Comment on above: Pain in side Abdominal Pain Start: 01-02-2023 Get Medical Advice Isaias Bradley MD Work Phone: [facility] [place] Comment on above: Not allowing Ms to s end for refill Start: 12-26-2022 End: 12-26-2022 [facility] Kenisha Daily APRN.[facility] Work Phone: Psychiatry Comment on above: Mixed obsessional th oughts and acts (Primary Dx); Panic disorder with agoraphobia; Chronic post-traumatic stress disorder (PTSD); Major depressive disorder, recurrent episode, moderate (HCC) Start: 12-25-2022 Micheal Jimenez on PA-C Work Phone: [facility] Comment on above: Refill Request Start: 12-21-2022 ambulatory Isaias Bradley MD Work Phone: [facility] Comment on above: Carafate and protoni x Start: 12-16-2022 End: 12-16-2022 ambulatory Briseyda Pride MD Work Phone: Endocrinology Comment on above: ACI (adrenal cortica l insufficiency) (HCC) (Primary Dx); Hypothyroidism due to Hlalie's thyroiditis; Controlled type 2 diabetes mellitus without complication, without long-term current use of insulin (HCC) Start: 12-16-2022 End: 12-16-2022 Telemedicine consultation with patient Briseyda Pride MD Work Phone: [facility] Start: 12-09-2022 Telephone encounter Stanton Up RN Work Phone: [facility] Comment on above: Home Care (Notificat ion of SN discipline discharge from home care services.) Start: 12-09-2022 End: 12-09-2022 Home visit Stanton Serrano RN Work Phone: [facility] Comment on above: CARE COORDINATION OT AGENCY DC WO VISI T Start: 12-04-2022 Telephone encounter Hanh yang PT Work Phone: [facility] Comment on above: Home Care Start: 12-03-2022 End: 12-03-2022 Home visit Hanh Burns PT Work Phone: [facility] Comment on above: PT UNMADE VISIT Start: 12-02-2022 End: 12-02-2022 ambulatory Isaias Bradley MD Work Phone: [facility] Comment on above: Reaction, adjustment , with anxious, depressed mood Start: 12-02-2022 End: 12-02-2022 Telemedicine consultation with patient Isaias Bradley MD Work Phone: [facility] Start: 12-01-2022 Telephone encounter Tila del rio PT Work Phone: [facility] Comment on above: Home Care (Patient d eclined PT evaluation today) Start: 12-01-2022 End: 12-01-2022 ambulatory Nurse Intm/Famp Triage [facility] Work Phone: Nurse Phone Triage Comment on above: right upper abdomina l pain Start: 11-30-2022 Telephone encounter Self [facility] Comment on above: Home Care (DELAY IN SERVICE) Results Start: 11-29-2022 End: 11-29-2022 Home visit Natalia Miller RN Work Phone: [facility] Comment on above: SN ROUTINE Start: 11-25-2022 Telephone encounter Isaias Bradley MD Work Phone: [facility] [place] Comment on above: Results Start: 11-25-2022 End: 11-25-2022 Home visit Paulina Long RN Work Phone: [facility] Comment on above: SN SOC Start: 11-24-2022 Telephone encounter Isaias Bradley MD Work Phone: [facility] Comment on above: Results Start: 11-24-2022 End: 11-24-2022 Patient encounter procedure Isaias Bradley MD Work Phone: [facility] Comment on above: Vomiting without kranthi sea, unspecified vomiting type (Primary Dx); Seizure-like activity (HCC); Seizure (HCC); Migraine variant with headache; Chronic gastritis without bleeding, unspecified gastritis type; Syncope, unspecified syncope type; Adrenal insufficiency (Wabasso's disease) (HCC); Weight loss; Reaction, adjustment, with anxious, depressed mood; Prediabetes; Elevated liver enzymes; Gastritis without bleeding, unspecified chronicity, unspecified gastritis type; SLE (systemic lupus erythematosus related syndrome) (HCC) Start: 11-23-2022 Patient Outreach Porsha boateng RN [facility] Comment on above: Transition Of Care ( TCM initial outreach discharge 11/22) Start: 11-22-2022 Telephone encounter Hanhyenifer pereira Work Phone: [facility] Comment on above: Home Care (Confirmat ion Call ) Home Care (Follow fo r [facility] ) Start: 11-22-2022 End: 11-22-2022 Evaluation and management of inpatient Mario Bowen Facility:[facility] Start: 11-18-2022 End: 11-22-2022 Evaluation and management of inpatient ISAIAS BRADLEY Facility:[facility] Start: 11-18-2022 End: 11-18-2022 Patient encounter procedure Isaias Bradley MD Work Phone: [facility] Comment on above: Dehydration (Primary Dx); Weight loss; Vomiting without nausea, unspecified vomiting type; Diarrhea, unspecified type; Anorexia; Tachycardia; Syncope, unspecified syncope type; Lactate blood increase; Adrenal insufficiency (Slade's disease) (HCC); Weakness; Prediabetes; Seizure-like activity (HCC); Unable to care for self Start: 11-18-2022 Telephone encounter Maria Eugenia N Snell deburring technician Comment on above: Appointment Confirma tion Start: 11-16-2022 ambulatory Jigna willett MD Work Phone: Gastroenterology Comment on above: Colonoscopy Start: 11-15-2022 ambulatory Briseyda boss MD Work Phone: Endocrinology Comment on above: Question regarding T SH BLD Start: 11-04-2022 Refill Isaias Bradley MD Work Phone: [facility] Comment on above: Refill Request Start: 11-03-2022 End: 11-03-2022 Emergency department patient visit Dr. [facility]aias Bradley [facility] Start: 11-02-2022 ambulatory Isaias Bradley MD Work Phone: [facility] Comment on above: Ensure Start: 10-31-2022 End: 10-31-2022 Emergency department patient visit Dr. Isaias Bradley Work Phone: [facility] Start: 10-29-2022 End: 10-29-2022 Emergency department patient visit Dr. 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 (ICD-10-CM)] Start: 10-25-2022 End: 10-25-2022 Telemedicine consultation with patient Briseyda Pride MD Work Phone: [facility] Start: 10-18-2022 End: 10-18-2022 Nutrition therapy Ronald Lovell PA-C Work Phone: [facility] Comment on above: Slade's disease (H CC) (Primary Dx); Acute bilateral low back pain with left-sided sciatica; Malnutrition of mild degree (HCC); Recurrent major depression in partial remission (HCC); Reaction, adjustment, with anxious, depressed mood; Hyperemesis; Urinary retention Start: 10-18-2022 End: 10-18-2022 Telemedicine consultation with patient Ronald Sim Nas NATION Work Phone: [facility] Start: 10-10-2022 ambulatory Isaias Bradley MD Work Phone: [facility] [place] Comment on above: Trazodone fludrocortisone Start: 10-06-2022 ambulatory Briseyda boss MD Work Phone: Endocrinology Comment on above: Tested positive for Covid at urgent care Start: 10-05-2022 End: 10-05-2022 Patient encounter procedure Chelle Gonzales APRN.HEALTH CLUB MANAGER Work Phone: [facility] Comment on above: Flu-like symptoms (P rimary Dx); Sore throat Start: 10-04-2022 Telephone encounter Briseyda perez MD Work Phone: Endocrinology Comment on above: Patient Question Start: 09-13-2022 End: 09-13-2022 Nursing evaluation of patient and report Nurse Urol [facility] Work Phone: Urology Comment on above: Retention of urine ( Primary Dx) Start: 09-13-2022 ambulatory Jigna willett MD Work Phone: Gastroenterology Comment on above: Need to reschedule c olonoscopy Start: 09-12-2022 Telephone encounter Rigoberto farias PA-C Work Phone: Urology Comment on above: Patient Update Start: 09-11-2022 End: 09-11-2022 Emergency department patient visit Dr. Isaias Bradley Work Phone: [facility] Start: 09-10-2022 End: 09-10-2022 Emergency department patient visit Dr[facility]aias Bradley [facility] Start: 09-08-2022 End: 09-08-2022 Emergency department patient visit Dr. Isaias Bradley Work Phone: [facility] Start: 09-07-2022 Telephone encounter Rigoberto farias PA-C Work Phone: Urology Comment on above: Patient Update; Appo intment Start: 09-06-2022 End: 09-06-2022 Emergency department patient visit Dr. Isaias Bradley [facility] Start: 09-06-2022 Telephone encounter Rigoberto ALMAZANC Work Phone: Urology Comment on above: Question; Pain Start: 09-05-2022 End: 09-05-2022 Emergency department patient visit Dr. Isaias Bradley Work Phone: [facility] Start: 09-01-2022 Telephone encounter Briseyda perez MD Work Phone: Endocrinology Comment on above: Medication Problem ( GLUCOSE METER) Start: 09-01-2022 End: 09-01-2022 Subsequent hospital visit by physician Roby Nathan MD Work Phone: Ambulatory Surgery Comment on above: Diarrhea, unspecifie d type [R19.7] Start: 08-30-2022 ambulatory Briseyda boss MD Work Phone: Endocrinology Comment on above: Sugar equipment Start: 08-23-2022 Orders Only Briseyda boss MD Work Phone: Endocrinology Start: 08-22-2022 ambulatory [facility] Start: 08-22-2022 Telephone encounter Isaias Bradley MD Work Phone: Family [facility] Comment on above: Home Care Management Refill Request Transition Of Care ( [facility] INITIAL OUTREACH, 1st ATTEMPT, LVM) Start: 08-15-2022 Non-patient / Non-visit Dr. Angy Bradley Work Phone: [facility] Start: 08-14-2022 Non-patient / Non-visit Dr. Angy Bradley Work Phone: [facility] Start: 08-13-2022 Non-patient / Non-visit Dr. Angy Bradley Work Phone: [facility] Start: 08-12-2022 Non-patient / Non-visit Dr. Angy Bradley Work Phone: [facility] Start: 08-11-2022 Non-patient / Non-visit Dr. Angy Bradley Work Phone: [facility] Start: 08-11-2022 ambulatory Briseyda boss MD Work Phone: Endocrinology Comment on above: Still in ER Start: 08-10-2022 Non-patient / Non-visit Dr. Angy Bradley Work Phone: [facility] Start: 08-10-2022 ambulatory Briseyda boss MD Work Phone: Endocrinology Comment on above: In ER Start: 08-09-2022 Non-patient / Non-visit Dr. 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 (NPAF 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/) Start: 08-02-2022 Refill Briseyda boss MD Work Phone: Endocrinology Comment on above: Refill Request Start: 08-01-2022 End: 08-01-2022 Patient encounter procedure Jigna Jiang MD Work Phone: Gastroenterology Comment on above: Diarrhea, unspecifie d type (Primary Dx); Abnormal LFTs Refill Request Start: 07-28-2022 ambulatory Briseyda boss MD Work Phone: Endocrinology Comment on above: Insurance needs auth orization Start: 07-28-2022 End: 07-28-2022 Patient encounter procedure Briseyda Pride MD Work Phone: Endocrinology Comment on above: Wabasso's disease (H CC) (Primary Dx) Start: 07-25-2022 ambulatory Isaias Bradley MD Work Phone: Family [facility] Comment on above: Shot record Start: 07-21-2022 Refill M Roney marquis PA-C Work Phone: Family [facility] [place] Comment on above: Refill Request Start: 07-16-2022 ambulatory Briseyda boss MD Work Phone: Endocrinology Comment on above: In ER Start: 07-15-2022 ambulatory Isaias Bradley MD Work Phone: [facility] Comment on above: Work note Start: 07-14-2022 End: 07-14-2022 Patient encounter procedure Isaias Bradley MD Work Phone: Family [facility] [place] Comment on above: Hyperemesis (Primary Dx); Wabasso's disease (HCC); Recurrent major depression in partial remission (HCC); Elevated liver enzymes; Malnutrition of mild degree (HCC) Start: 07-11-2022 End: 07-11-2022 Emergency department patient visit [facility] Start: 06-30-2022 ambulatory Rigoberto Lopez PA-C Work Phone: Urology Comment on above: Returning call to Brett mitchell Start: 06-30-2022 Telephone encounter Rigoberto farias PA-C Work Phone: Urology Comment on above: Appointment; Care Co ordinator - Other Start: 06-25-2022 End: 07-05-2022 Evaluation and management of inpatient ALAYNAMarlee RASMUSSEN Facility:[facility] Start: 06-25-2022 End: 07-05-2022 Evaluation and management of inpatient Alayna Rasmussen MD Work Phone: [facility] Comment on above: Nausea & vomiting Start: 06-20-2022 ambulatory Polly Kilgore RN NURS E [facility] Comment on above: Information Start: 05-30-2022 Refill Abby Langford APRN.HEALTH CLUB MANAGER Work Phone: [facility] Comment on above: Refill Request Start: 04-19-2022 End: 04-19-2022 Patient encounter procedure Chelle Gonzales APRN.HEALTH CLUB MANAGER Work Phone: [facility] Comment on above: Sore throat (Primary Dx) Start: 04-15-2022 Refill Isaias Bradley MD Work Phone: [facility] Comment on above: Refill Request Start: 04-01-2022 End: 04-01-2022 Office outpatient visit 15 minutes Abby Langford APRN.HEALTH CLUB MANAGER Work Phone: [facility] Comment on above: Surgical menopause ( Primary Dx); Acute right-sided low back pain with right-sided sciatica Start: 03-15-2022 End: 03-15-2022 ambulatory Ronald Sim Nas NATION Work Phone: [facility] [place] Comment on above: Acute midline low ba ck pain without sciatica (Primary Dx) Start: 03-15-2022 End: 03-15-2022 Telemedicine consultation with patient Ronald ArevaloRoneymarie Lovell PA-C Work Phone: [facility] Start: 02-09-2022 End: 02-09-2022 Subsequent hospital visit by physician Xr [facility] [place] Work Phone: Radiology Comment on above: Elevated antinuclear antibody (BOBBY) level [R76.8] Start: 02-09-2022 End: 02-09-2022 Patient encounter procedure Amanda Casarez APRN.HEALTH CLUB MANAGER Work Phone: [facility] Comment on above: Sore throat (Primary Dx) Start: 02-04-2022 End: 02-04-2022 Patient encounter procedure Sangita Fragoso DO Work Phone: Rheumatology Comment on above: Elevated antinuclear antibody (BOBBY) level (Primary Dx); Malar rash; Polyarthralgia; Dysphagia, unspecified type; Recurrent oral ulcers; History of thyroid disease; History of Slade's disease Start: 02-02-2022 End: 02-02-2022 Patient encounter procedure Briseyda Pride MD Work Phone: Endocrinology Comment on above: ACI (adrenal cortica l insufficiency) (HCC); Hypoglycemia Start: 01-27-2022 End: 01-27-2022 Patient encounter procedure Jamil Bryant MD Work Phone: Urology Comment on above: Gross hematuria (Orsi cruz Dx); Urgency of urination; Urge incontinence Start: 01-19-2022 Patient Outreach Hanh christian RN Alloy Weigher Management Comment on above: Transition Of Care ( initial encounter post hosptial discharge 01/18/22) Start: 12-26-2021 Telephone encounter Quinten Waller MD Work Phone: Gastroenterology Comment on above: Results Start: 09-14-2020 End: 09-15-2020 Patient encounter procedure PROVIDER NOT IN SYSTEM [facility] Start: 09-14-2020 End: 09-15-2020 Subsequent hospital visit by physician [facility] Work Phone: [facility] Intermediate Start: 07-21-2019 End: 07-21-2019 Emergency department patient visit [facility] Start: 07-21-2019 End: 07-21-2019 Emergency department patient visit [facility] Work Phone: [facility] ED Comment on above: Laceration of nose, initial encounter (Primary Dx) Start: 06-28-2017 End: 06-28-[address] [facility] Start: 06-21-2017 [facility] Start: 05-18-2017 End: 05-19-2017 [facility] Facility:[facility] Start: 05-10-2017 [facility] Procedures Date Procedure Procedure Detail Performing Clinician Start: 07-22-[address] Isaias Bradley MD Work Phone: Start: 07-20-2025 Urnls dip stick/tabl et reagent auto microscopy Dr. Isaias Bradley MD Work Phone: Start: 07-20-[address] Isaias Bradley MD Work Phone: Start: 07-20-2025 SARS-CoV-2, Influenz a & RSV (PCR) Dr. Isaias Bradley MD Work Phone: Start: 07-19-2025 Urinalysis ISAIAS SHERIFF Comment on above: Result Comment: URIN ALYSIS Performed By: #### [id number] ####[facility],[address] [place] [address] Start: 06-17-[address] Isaias Bradley MD Work Phone: Start: 06-17-2025 Total iron binding capacity measurement Dr. Isaias Bradley MD Work Phone: Start: 06-16-2025 SARS-CoV-2, Influenz a & RSV (PCR) Dr. Isaias Bradley MD Work Phone: Start: 06-16-[address] Isaias Bradley MD Work Phone: Start: 06-16-2025 Urnls dip stick/tabl et reagent auto microscopy Dr. Isaias Bradley MD Work Phone: Start: 02-19-[address] Isaias Bradley MD Work Phone: Start: 02-16-2025 Carbon dioxide measurement, partial pressure Dr. Isaias Bradley MD Work Phone: Start: 02-16-2025 Gases blood o2 satur ation only direct evert Dr. Isaias Bradley MD Work Phone: Start: 02-16-2025 Measurement of parti al pressure of oxygen in blood Dr. Isaias Bradley MD Work Phone: Start: 02-16-[address] Isaias Bradley MD Work Phone: Start: 02-16-2025 Urnls dip stick/tabl et reagent auto microscopy Dr. Isaias Bradley MD Work Phone: Start: 12-10-2024 Computed tomography of abdomen and pelvis with intravenous contrast Dr. Isaias Bradley MD Work Phone: Start: 12-10-2024 CT of head without contrast Dr. Isaias Bradley MD Work Phone: Start: 12-10-2024 SARS-CoV-2, Influenz a & RSV (PCR) Dr. Isaias Bradley MD Work Phone: Start: 10-20-2024 Urinalysis ISAIAS SHERIFF Comment on above: Result Comment: URIN ALYSIS Performed By: #### [id number] ####[facility],[address] [place] [address] Start: 10-08-2024 Urinalysis ISAIAS SHERIFF Comment on above: Result Comment: URIN ALYSIS Performed By: #### [id number] ####[facility],[address] [place] [address] Start: 08-26-2024 Urinalysis ISAIAS SHERIFF Comment on above: Result Comment: URIN ALYSIS Performed By: #### [id number] ####[facility],[address] [place] [address] Start: 05-11-2024 Hemoglobin A1c/Hemoglobin.total in Blood [facility] Provider Start: 05-10-2024 Thyrotropin [Units/volume] in Serum or Plasma [facility] Provider Start: 08-09-2023 Gluc bld gluc mntr d ev cleared fda spec home use Patrizia Frederick FIELD RESEARCH ASSISTANT.SHELLFISH PROCESSING LABORER Start: 08-09-2023 Colonoscopy flx dx w/collj spec when pfrmd Jigna Jiang MD Work Phone: Start: 04-13-2023 Urnls dip stick/tabl et rgnt auto w/o microscopy Porsha Holt FIELD RESEARCH ASSISTANT.HEALTH CLUB MANAGER Work Phone: Start: 02-14-2023 US scan of gallbladder Dr. Isaias Bradley Work Phone: Start: 02-04-2023 Computed tomography of abdomen and pelvis with contrast Start: 02-04-2023 Plain chest X-ray Start: 01-17-2023 STREP A MOLECULAR (POC) Zamzam Dai PA-C Work Phone: Start: 11-03-2022 Computed tomography of abdomen and pelvis with intravenous contrast Dr. Isaias Bradley Work Phone: Start: 10-31-2022 Plain x-ray of pelvi s and lower extremity Dr. Isaias Bradley Work Phone: Start: 10-31-2022 X-ray of lumbar spin e, two or three views Dr. Isaias Bradley Work Phone: Start: 10-31-2022 CT cervical spine wi thout contrast Dr. Isaias Bradley Work Phone: Start: 10-31-2022 CT of head without contrast Dr. Isaias Bradley Work Phone: Start: 10-29-2022 Plain chest X-ray Dr. Kel Bradley Work Phone: Start: 10-05-2022 STREP A MOLECULAR (POC) Chelle Gonzales APRN.CNP Work Phone: Start: 09-05-2022 CT of abdomen and pe lvis without contrast Dr. Isaias Bradley Work Phone: Start: 09-01-2022 Level iv surg pathol ogy gross&microscopic exam Roby Nathan MD Work Phone: Start: 09-01-2022 Colonoscopy flx dx w/collj spec when pfrmd Jigna Jiang MD Work Phone: Start: 08-09-2022 Computed tomography angiography of abdominal and/or pelvic blood vessel Start: 07-11-2022 Computed tomography of abdomen and pelvis with intravenous contrast Start: 07-05-2022 Basic metabolic pane l calcium total Patsy Lua MD Work Phone: Start: 07-04-2022 DIAGNOSTIC UPPER ENDOSCOPY Vince Ingram DO Work Phone: Start: 07-04-2022 Glucose measurement, blood Kate Begum DO Work Phone: Start: 07-04-2022 Comprehensive metabo lic panel Patsy Lua MD Work Phone: Start: 07-03-2022 Comprehensive metabo lic panel Patsy Lua MD Work Phone: Start: 07-02-2022 Inf agent det nuclei c acid clostridium amp probe Kate Begum DO Work Phone: Start: 07-02-2022 EXTRA MICRO Kate gomes DO Work Phone: Start: 07-02-2022 URINALYSIS REFLEX TO CULTURE Kate Begum DO Work Phone: Start: 07-02-2022 Urnls dip stick/tabl et reagent auto microscopy Kate Begum DO Work Phone: Start: 07-02-2022 Comprehensive metabo lic panel Patsy Lua MD Work Phone: Start: 07-01-2022 Glucose measurement, blood Kate Begum DO Work Phone: Start: 07-01-2022 Comprehensive metabo lic panel Patsy Lua MD Work Phone: Start: 06-30-2022 End: 07-01-2022 Glucose measurement, blood Kate Begum DO Work Phone: Start: 06-30-2022 Comprehensive metabo lic panel Patsy Lua MD Work Phone: Start: 06-29-2022 Glucose measurement, blood Patsy Lua MD Work Phone: Start: 06-29-2022 Comprehensive metabo lic panel Patsy Lua MD Work Phone: Start: 06-29-2022 Glucose measurement, blood Patsy Lua MD Work Phone: Start: 06-28-2022 Glucose measurement, blood Patsy Lua MD Work Phone: Start: 06-28-2022 Comprehensive metabo lic panel Patsy Lua MD Work Phone: Start: 06-28-2022 Glucose measurement, blood Patsy Lua MD Work Phone: Start: 06-27-2022 Comprehensive metabo lic panel Patsy Lua MD Work Phone: Start: 06-26-2022 CBC AND ELECTRONIC DIFF Sai Joyce MD Work Phone: Start: 06-26-2022 Complete blood count with white cell differential, automated Sai Joyce MD Work Phone: Start: 06-26-2022 Comprehensive metabo lic panel Sai Joyce MD Work Phone: Start: 06-25-2022 Glucose measurement, blood Sai Joyce MD Work Phone: Start: 06-25-2022 Radiologic exam abdo men 1 view Sai Joyce MD Work Phone: Start: 06-25-2022 Us abdominal real ti me w/image limited Ursula Dominguez MD, MPH Work Phone: Start: 06-25-2022 EXTRA MICRO Ursula moura MD, MPH Work Phone: Start: 06-25-2022 URINALYSIS REFLEX TO CULTURE Ursula Dominguez MD, MPH Work Phone: Start: 06-25-2022 Urnls dip stick/tabl et reagent auto microscopy Ursula Dominguez MD, MPH Work Phone: Start: 06-25-2022 ANTI MITOCHONDRIAL ANTIBODY Sai Joyce MD Work Phone: Start: 06-25-2022 ANTI SMOOTH MUSCLE ANTIBODY Sai Joyce MD Work Phone: Start: 06-25-2022 Dehydroepiandrostero ne-capps lfate Leatha Taylor MD, PhD Work Phone: Start: 06-25-2022 Hepatitis b core ant ibody hbcab igm antibody Sai Joyce MD Work Phone: Start: 06-25-2022 PROTEIN ELECTROPHORE SIS SERUM, WITH REFLEX Sai Joyce MD Work Phone: Start: 06-25-2022 SPE SERUM TOTAL PROTEIN Sai Joyce MD Work Phone: Start: 06-25-2022 Glucose measurement, blood Sai Joyce MD Work Phone: Start: 06-25-2022 Cortisol total Ursula Dominguez MD, MPH Work Phone: Start: 06-25-2022 Glucose measurement, blood Sai Joyce MD Work Phone: Start: 06-25-2022 IP CONSULT TO SPEECH THERAPY Sai Joyce MD Work Phone: Start: 06-25-2022 CBC AND ELECTRONIC DIFF Ursula Dominguez MD, MPH Work Phone: Start: 06-25-2022 Complete blood count with white cell differential, automated Ursula Dominguez MD, MPH Work Phone: Start: 06-25-2022 End: 06-25-2022 Bilirubin direct Ursula Dominguez MD, MPH Work Phone: Start: 06-25-2022 Glucose measurement, blood Alayna Rasmussen MD Work Phone: Start: 04-19-2022 STREP A MOLECULAR (POC) Chelle Gonzales APRN.HEALTH CLUB MANAGER Work Phone: Start: 02-09-2022 Radex ankle complete minimum 3 views Sangita Fragoso DO Work Phone: Start: 02-09-2022 STREP A MOLECULAR (POC) Amanda Casarez APRN.HEALTH CLUB MANAGER Work Phone: Start: 01-27-2022 Urnls dip stick/tabl et rgnt auto w/o microscopy Jamil Bryant MD Work Phone: Start: 09-15-2020 Mra head w/o contrst material Kurt Craft Work Phone: Start: 09-15-2020 Mra neck w/o &w/cont rast material Kurt Craft Work Phone: Start: 09-15-2020 Carotid artery doppl er assessment Julio Leach Work Phone: Start: 09-15-2020 Complete blood count with white cell differential, automated Julio Castillo Al Barry Work Phone: Start: 09-15-2020 Complete blood count with white cell differential, manual Julio Castillo Al Barry Work Phone: Start: 09-15-2020 Magnesium [Mass/volu me] in Serum or Plasma Julio Leach Work Phone: Start: 09-15-2020 Renal function 2000 panel - Serum or Plasma Julio Leach Work Phone: Start: 09-15-2020 Thyrotropin [Units/volume] in Serum or Plasma by Detection limit <= 0.005 mIU/L Julio Leach Work Phone: Start: 09-14-2020 Urinalysis Julio Leach Work Phone: Start: 09-14-2020 Basic metabolic 2000 panel - Serum or Plasma Julio Leach Work Phone: Start: 09-14-2020 Cobalamin (Vitamin B 12) [Mass/volume] in Serum or Plasma Julio Leach Work Phone: Start: 09-14-2020 Complete blood count with white cell differential, automated Julio Castillo Al Galad Work Phone: Start: 09-14-2020 Complete blood count with white cell differential, manual Julio Castillo Al Galad Work Phone: Start: 09-14-2020 Hemoglobin A1c/Hemoglobin.total in Blood Julio Leach Work Phone: Start: 09-14-2020 Lipid 1996 panel - S espinoza or Plasma Julio Leach Work Phone: Start: 09-14-2020 Magnesium [Mass/volu me] in Serum or Plasma Julio Leach Work Phone: Start: 09-14-2020 Vitamin D, 25-hydrox y measurement Kurt Craft Work Phone: Start: 08-13-2020 H/O: hysterectomy H/O total va ginal hysterectomy Hanh Barrera RN Start: 07-21-2019 Radex nasal bones complete minimum 3 views VESELIN KENYON Start: 07-21-2019 Radex nasal bones complete minimum 3 views Veselin Kenyon Work Phone: Start: 11-21-2011 Microscopic observat ion [Identifier] in Cervix by Cyto stain [facility] Bacteria identified in Blood by Culture Dr. Isaias Bradley Work Phone: SARS-CoV-2 & FLU Ant igen (Rapid) Dr. Isaias Bradley Work Phone: SARS-CoV-2 & FLU Ant igen (Rapid) Urine culture Dr. Isaias Sheriff Work Phone: Plan of Treatment Date Care Activity Detail Author Start: 11-22-2033 Urine microalbumin profile DTaP,Tdap,Td Vaccine (8 - Td or Tdap) [facility] Start: 06-09-2026 Annual PCP Team Chronic Disease Visit Annual PCP Team Chronic Disease Visit [facility] Start: 2026 Annual PCP Team Chronic Disease Visit Annual PCP Team Chronic Disease Visit [facility] Start: 12-18-2025 Annual PCP Team Chronic Disease Visit Annual PCP Team Chronic Disease Visit [facility] Start: 12-10-2025 Hemoglobin A1c measurement HbA1C [facility] Start: 09-03-2025 End: 09-03-2025 Follow-up encounter 09/03/2025 11:00 AM [facility] [address] [place] [address] Kenisha Daily, FIELD RESEARCH ASSISTANT.HEALTH CLUB MANAGER [address] [place] [id number] Follow Up [facility] Comment on above: Follow Up [facility] Start: 08-07-2025 Annual PCP Team Chronic Disease Visit Annual PCP Team Chronic Disease Visit [facility] Start: 07-22-2025 Patient discharge [facility] Start: 07-20-2025 Application of intermittent pneumatic compression device [facility] Start: 07-20-2025 Assessment of risk of venous thromboembolism [facility] Start: 07-20-2025 Inhalation therapy procedure [facility] Start: 07-20-2025 Insertion of catheter into peripheral vein [facility] Start: 07-20-2025 Measuring intake and output [facility] Start: 07-20-2025 Providing care according to standard [facility] Start: 07-20-2025 [facility] Start: 07-20-2025 Following clinical pathway protocol [facility] Start: 07-20-2025 Admission procedure [facility] Start: 07-20-2025 Hospital admission, emergency, from emergency room, medical nature [facility] Start: 07-03-2025 End: 07-03-2025 [facility] 07/03/2025 10:00 AM EDT [facility] [address] [place] [address] [place] [id number] [place] [address] HEADACHES, MED REFILL FOLLOW UP Neurology Comment on above: HEADACHES, MED REFILL FOLLOW UP Start: 06-23-2025 Influenza vaccination [facility] Start: 06-18-2025 End: 06-18-2025 Patient encounter procedure 06/18/2025 11:00 AM EDT Office Visit [facility] [address] [place] [address] Isaias Bradley MD [address] [place] [address] ER follow up [facility] [place] Comment on above: ER follow up Start: 06-17-2025 Patient discharge [facility] Start: 06-16-2025 End: 06-17-2025 [facility] Start: 06-16-2025 Application of intermittent pneumatic compression device [facility] Start: 06-16-2025 Assessment of risk of venous thromboembolism [facility] Start: 06-16-2025 Insertion of catheter into peripheral vein [facility] Start: 06-16-2025 Measuring intake and output [facility] Start: 06-16-2025 Providing care according to standard [facility] Start: 06-16-2025 Provision of activity privileges [facility] Start: 06-16-2025 Following clinical pathway protocol [facility] Start: 06-16-2025 Hospital admission, emergency, from emergency room, medical nature [facility] Start: 06-16-2025 Admission procedure [facility] Start: 06-13-2025 End: 06-13-2025 ambulatory 06/13/2025 2:20 PM EDT [facility] End[facility] [address] [place] [address] Briseyda Pride MD [address] [place] [address] Check up Endocrinology Comment on above: Check up Start: 05-06-2025 End: 2026 CBC W Auto Differential panel - Blood COMPLETE BLOOD COUNT AND DIFFERENTIAL Lab Routine Anemia, unspecified type Expected: 05/06/2025, Expires: 2026 [facility] Work Phone: Comment on above: Expected: 05/06/2025, Expires: Start: 05-06-2025 End: 2026 Cobalamin (Vitamin B12) [Mass/volume] in Serum or Plasma VITAMIN B12 Lab Routine Anemia, unspecified type Expected: 05/06/2025, Expires: 2026 [facility] Comment on above: Expected: 05/06/2025, Expires: Start: 05-06-2025 End: 08-05-2025 Comprehensive metabolic 2000 panel - Serum or Plasma COMPREHENSIVE METABOLIC PANEL Lab Routine Adrenal crisis (HCC) Prediabetes Expected: 05/06/2025, Expires: 08/05/2025 [facility] Comment on above: Expected: 05/06/2025, Expires: Start: 05-06-2025 End: 08-05-2025 Cortisol [Mass/volume] in Serum or Plasma CORTISOL, SERUM Lab Routine Adrenal crisis (HCC) Expected: 05/06/2025, Expires: 08/05/2025 [facility] Comment on above: Expected: 05/06/2025, Expires: Start: 05-06-2025 End: 2026 Ferritin [Mass/volume] in Serum or Plasma FERRITIN Lab Routine Anemia, unspecified type Expected: 05/06/2025, Expires: 2026 [facility] Comment on above: Expected: 05/06/2025, Expires: Start: 05-06-2025 End: 2026 Folate [Mass/volume] in Serum or Plasma FOLATE, SERUM Lab Routine Anemia, unspecified type Expected: 05/06/2025, Expires: 2026 [facility] Comment on above: Expected: 05/06/2025, Expires: Start: 05-06-2025 End: 08-05-2025 Hemoglobin A1c in Blood HEMOGLOBIN A1C Lab Routine Prediabetes Expected: 05/06/2025, Expires: 08/05/2025 [facility] Comment on above: Expected: 05/06/2025, Expires: Start: 05-06-2025 End: 2026 Iron and Iron binding capacity panel - Serum or Plasma IRON AND TIBC Lab Routine Anemia, unspecified type Expected: 05/06/2025, Expires: 2026 [facility] Comment on above: Expected: 05/06/2025, Expires: Start: 05-06-2025 End: 08-05-2025 TSH W/REFLEX FT4 TSH W/REFLEX FT4 Lab Routine Graves disease Expected: 05/06/2025, Expires: 08/05/2025 [facility] Comment on above: Expected: 05/06/2025, Expires: Start: 04-06-2025 Annual PCP Team Chronic Disease Visit Annual PCP Team Chronic Disease Visit [facility] Start: 04-02-2025 End: 04-02-2025 [facility] 04/02/2025 2:00 PM EDT [facility] [address] [place] [address] Kenisha Daily, FIELD RESEARCH ASSISTANT.HEALTH CLUB MANAGER [address] [place] [address] Provider Ordered Follow Up Psychiatry Comment on above: Provider Ordered Follow Up Start: 03-29-2025 Annual PCP Team Chronic Disease Visit Annual PCP Team Chronic Disease Visit [facility] Start: 02-20-2025 Patient discharge [facility] Start: 02-17-2025 [facility] Start: 02-16-2025 Application of intermittent pneumatic compression device [facility] Start: 02-16-2025 Oxygen therapy [facility] Start: 02-16-2025 Following clinical pathway protocol [facility] Start: 02-16-2025 Assessment of risk of venous thromboembolism [facility] Start: 02-16-2025 Care regimes management [facility] Start: 02-16-2025 Inhalation therapy procedure [facility] Start: 02-16-2025 Insertion of catheter into peripheral vein [facility] Start: 02-16-2025 Measuring intake and output [facility] Start: 02-16-2025 Notification of physician [facility] Start: 02-16-2025 Providing care according to standard [facility] Start: 02-16-2025 Provision of activity privileges [facility] Start: 02-16-2025 End: 02-16-2025 [facility] Start: 02-16-2025 Verification routine [facility] Start: 02-16-2025 Admission procedure [facility] Start: 02-16-2025 Hospital admission, emergency, from emergency room, medical nature [facility] Start: 02-16-2025 [facility] Start: 01-01-2025 End: 04-02-2025 clomiPRAMINE and Norclomipramine panel - Serum or Plasma CLOMIPRAMINE Lab Routine Encounter for long-term (current) use of medications Expected: 01/01/2025, Expires: 04/02/2025 [facility] Work Phone: Comment on above: Expected: 01/01/2025, Expires: Start: 01-01-2025 End: 01-01-2025 Follow-up encounter 01/01/2025 2:00 PM EDT [facility] [address] [place] [address] Kenisha Daily, FIELD RESEARCH ASSISTANT.HEALTH CLUB MANAGER [address] [place] [address] 5-6 week follow up Psychiatry Comment on above: 5-6 week follow up Start: 12-24-2024 End: 12-24-2024 Follow-up encounter 12/24/2024 8:00 AM EST [facility] [address] [place] [address] Briseyda Pride MD [address] [place] [address] A follow up Endocrinology Comment on above: A follow up Start: 12-10-2024 [facility] Start: 12-06-2024 Annual PCP Team Chronic Disease Visit Annual PCP Team Chronic Disease Visit [facility] Start: 11-22-2024 Annual PCP Team Chronic Disease Visit Annual PCP Team Chronic Disease Visit [facility] Start: 11-20-2024 End: 11-20-2024 [facility] 11/20/2024 1:30 PM EST [facility] [address] [place] [address] Kenisha Daily, FIELD RESEARCH ASSISTANT.HEALTH CLUB MANAGER [address] [place] [address] Provider Ordered follow up Psychiatry Comment on above: Provider Ordered follow up Start: 11-13-2024 End: 11-13-2024 Follow-up encounter 11/13/2024 3:30 PM EST [facility] [address] [place] [address] [place] [id number] [place] [address] Follow up for medication renewal Neurology Comment on above: Follow up for medication renewal Start: 11-11-2024 Hemoglobin A1c measurement HbA1C [facility] Start: 09-25-2024 End: 09-25-2024 Follow-up encounter Psychiatry Comment on above: follow up Start: 09-25-2024 End: 09-25-2024 ambulatory 09/25/2024 10:00 AM EST [facility] [address] [place] [place] [id number] Beckie Doe MD [address] [place], [place] [id number] 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 Patient would like to est with someone closer to home Start: 09-04-2024 Annual PCP Team Chronic Disease Visit Annual PCP Team Chronic Disease Visit [facility] Start: 09-04-2024 End: 09-04-2024 Patient encounter procedure 09/04/2024 2:00 PM EST Office Visit Endocrinology [address] [place] [address] Briseyda Pride MD [address] [place] [address] Addisons disease Endocrinology Comment on above: Addisons disease Start: 08-21-2024 End: 11-20-2024 clomiPRAMINE and Norclomipramine panel - Serum or Plasma CLOMIPRAMINE Lab Routine Encounter for long-term (current) use of medications Expected: 08/21/2024, Expires: 11/20/2024 [facility] Work Phone: Comment on above: Expected: 08/21/2024, Expires: Start: 08-21-2024 End: 08-21-2024 Follow-up encounter 08/21/2024 1:00 PM EDT [facility] [address] [place] [address] Kenisha Daily, FIELD RESEARCH ASSISTANT.HEALTH CLUB MANAGER [address] [place] [address] follow up Psychiatry Comment on above: follow up Start: 08-07-2024 End: 11-06-2024 Basic metabolic 2000 panel - Serum or Plasma BASIC METABOLIC PANEL Lab Routine Pain in both lower extremities Acute bilateral low back pain with right-sided sciatica Expected: 08/07/2024, Expires: 11/06/2024 [facility] Comment on above: Expected: 08/07/2024, Expires: Start: 08-07-2024 End: 11-06-2024 CBC W Auto Differential panel - Blood COMPLETE BLOOD COUNT AND DIFFERENTIAL Lab Routine Pain in both lower extremities Acute bilateral low back pain with right-sided sciatica Expected: 08/07/2024, Expires: 11/06/2024 [facility] Work Phone: Comment on above: Expected: 08/07/2024, Expires: Start: 08-07-2024 End: 11-06-2024 Creatine kinase [Enzymatic activity/volume] in Serum or Plasma CREATINE KINASE/CK Lab Routine Pain in both lower extremities Acute bilateral low back pain with right-sided sciatica Expected: 08/07/2024, Expires: 11/06/2024 [facility] Comment on above: Expected: 08/07/2024, Expires: Start: 08-07-2024 End: 11-06-2024 Erythrocyte sedimentation rate SEDIMENTATION RATE, WESTERGREN Lab Routine Pain in both lower extremities Acute bilateral low back pain with right-sided sciatica Expected: 08/07/2024, Expires: 11/06/2024 [facility] Comment on above: Expected: 08/07/2024, Expires: Start: 08-07-2024 End: 11-06-2024 Magnesium [Mass/volume] in Serum or Plasma MAGNESIUM Lab Routine Pain in both lower extremities Acute bilateral low back pain with right-sided sciatica Expected: 08/07/2024, Expires: 11/06/2024 [facility] Comment on above: Expected: 08/07/2024, Expires: Start: 08-07-2024 End: 08-07-2024 ambulatory 08/07/2024 9:00 AM EDT [facility] [place] [address] [place] [address] Isaias Bradley MD [address] [place] [address] Leg pain since Saturday 07/28. c/o intermittent feet numbness. Declined sooner appt. [facility] [place] Comment on above: Leg pain since Saturday 07/28. c/o intermit tent feet numbness. Declined sooner appt. Start: 07-05-2024 End: 07-05-2024 Patient encounter procedure 07/05/2024 1:40 PM EDT Office Visit Endocrinology [address] [place] [address] Beckie Doe MD [address] [address] addisons Endocrinology Comment on above: addisons Start: 06-24-2024 Hepatitis B surface antibody level LDL Cholesterol [facility] Start: 06-23-2024 Covid-19 Vaccine ( season) Covid-19 Vaccine ( season) [facility] Start: 06-23-2024 Covid-19 Vaccine ( season) Covid-19 Vaccine ( season) [facility] Start: 06-23-2024 Influenza vaccination [facility] Start: 06-14-2024 ANNUAL PCP TEAM CHRONIC DISEASE VISIT ANNUAL PCP TEAM CHRONIC DISEASE VISIT [facility] Start: 06-12-2024 End: 06-12-2024 Patient encounter procedure 06/12/2024 11:00 AM EDT Office Visit Pain Management [id number] [place] [address] Thomas Ribera MD [address] [place] [address] Chronic pain syndrome [G89.4] Pain Management Comment on above: Chronic pain syndrome [G89.4] Start: 05-22-2024 End: 05-22-2024 Follow-up encounter 05/22/2024 1:00 PM EDT [facility] [address] [place] [address] Kenisha Daily, FIELD RESEARCH ASSISTANT.HEALTH CLUB MANAGER [address] [place] [phone] 6 TO 8 WEEK FOLLOW UP Psychiatry Comment on above: 6 TO 8 WEEK FOLLOW UP Start: 05-18-2024 ANNUAL PCP TEAM CHRONIC DISEASE VISIT ANNUAL PCP TEAM CHRONIC DISEASE VISIT [facility] Start: 05-14-2024 End: 05-14-2024 Patient encounter procedure 05/14/2024 3:00 PM EDT Office Visit [facility] [place] [address] [place] [address] Isaias Bradley MD [address] [place], [place] [id number] 40 min visit for check up in office per Dr Bradley [facility] [place] Comment on above: 40 min visit for check up in office per Dr Bradley Start: 05-03-2024 End: 05-03-2024 Follow-up encounter 05/03/2024 2:20 PM EDT [facility] [address] [place] [address] Briseyda Pride MD [address] [place] [address] Er follow up for sugar . Dropped to 42 Endocrinology Comment on above: Er follow up for sugar . Dropped to 42 Start: 04-19-2024 ANNUAL PCP TEAM CHRONIC DISEASE VISIT ANNUAL PCP TEAM CHRONIC DISEASE VISIT [facility] Start: 04-03-2024 End: 04-03-2024 Follow-up encounter 04/03/2024 1:30 PM EDT [facility] [address] [place] [address] Kenisha Daily, FIELD RESEARCH ASSISTANT.HEALTH CLUB MANAGER [address] [place] [phone] FOLLOW UP Psychiatry Comment on above: FOLLOW UP Start: 03-29-2024 End: 03-29-2024 ambulatory 03/29/2024 2:20 PM EDT [facility] [place] [address] [place], [place] [id number] Isaias Bradley MD [address] [place], [place] [id number] Pain management [facility] Comment on above: Pain management Start: 03-15-2024 End: 03-15-2024 Follow-up encounter 03/15/2024 2:20 PM EDT [facility] [address] [place] [address] Briseyda Pride MD [address] [place] [address] Er follow up Endocrinology Comment on above: Er follow up Start: 02-28-2024 End: 02-28-2024 Follow-up encounter 02/28/2024 1:00 PM EDT [facility] [address] [place] [address] Kenisha Daily, FIELD RESEARCH ASSISTANT.HEALTH CLUB MANAGER [address] [place] [phone] FOLLOW UP Psychiatry Comment on above: FOLLOW UP Start: 02-14-2024 End: 02-14-2024 Follow-up encounter 02/14/2024 2:00 PM EDT [facility] [address] [place] [address] Kenisha Daily, FIELD RESEARCH ASSISTANT.HEALTH CLUB MANAGER [address] [place] [phone] FOLLOW UP Psychiatry Comment on above: FOLLOW UP Start: 02-02-2024 ANNUAL PCP TEAM CHRONIC DISEASE VISIT ANNUAL PCP TEAM CHRONIC DISEASE VISIT [facility] Start: 01-13-2024 ANNUAL PCP TEAM CHRONIC DISEASE VISIT ANNUAL PCP TEAM CHRONIC DISEASE VISIT [facility] Start: 12-02-2023 ANNUAL PCP TEAM CHRONIC DISEASE VISIT ANNUAL PCP TEAM CHRONIC DISEASE VISIT [facility] Start: 11-27-2023 Hemoglobin A1c measurement HbA1C [facility] Start: 11-27-2023 Hemoglobin A1c/Hemoglobin.total in Blood HbA1C [facility] Start: 11-24-2023 ANNUAL PCP TEAM CHRONIC DISEASE VISIT ANNUAL PCP TEAM CHRONIC DISEASE VISIT [facility] Start: 11-18-2023 ANNUAL PCP TEAM CHRONIC DISEASE VISIT ANNUAL PCP TEAM CHRONIC DISEASE VISIT [facility] Start: 10-18-2023 ANNUAL PCP TEAM CHRONIC DISEASE VISIT ANNUAL PCP TEAM CHRONIC DISEASE VISIT [facility] Start: 08-09-2023 3 comp foot exam completed Diabetic Foot Exam [facility] Start: 08-09-2023 ANNUAL PCP TEAM CHRONIC DISEASE VISIT ANNUAL PCP TEAM CHRONIC DISEASE VISIT [facility] Start: 08-09-2023 Diabetic foot examination Diabetic Foot Exam [facility] Start: 07-14-2023 ANNUAL PCP TEAM CHRONIC DISEASE VISIT ANNUAL PCP TEAM CHRONIC DISEASE VISIT [facility] Start: 06-25-2023 Thyroid stimulating hormone measurement TSH [facility] Start: 06-23-2023 Covid-19 Vaccine ( season) Covid-19 Vaccine ( season) [facility] Start: 06-23-2023 Influenza vaccination [facility] Start: 06-09-2023 Emergency department visit limited/minor prob EMR DPT VST MAYX REQ PHY/QHP [facility] Start: 05-30-2023 End: 07-30-2023 Basic metabolic 2000 panel - Serum or Plasma BASIC METABOLIC PNL Lab Routine Hypokalemia Expected: 05/30/2023, Expires: 07/30/2023 [facility] Work Phone: Comment on above: Expected: 05/30/2023, Expires: Start: 05-18-2023 End: 07-18-2023 Comprehensive metabolic 2000 panel - Serum or Plasma COMP METABOLIC PANEL Lab Routine Hepatitis, acute Expected: 05/18/2023, Expires: 07/18/2023 [facility] Work Phone: Comment on above: Expected: 05/18/2023, Expires: 3 Start: 04-01-2023 ANNUAL PCP TEAM CHRONIC DISEASE VISIT ANNUAL PCP TEAM CHRONIC DISEASE VISIT [facility] Start: 03-15-2023 ANNUAL PCP TEAM CHRONIC DISEASE VISIT ANNUAL PCP TEAM CHRONIC DISEASE VISIT [facility] Start: 03-15-2023 End: 12-16-2023 Comprehensive metabolic 2000 panel - Serum or Plasma COMP METABOLIC PANEL Lab Routine ACI (adrenal cortical insufficiency) (HCC) Expected: 03/15/2023, Expires: 12/16/2023 [facility] Work Phone: Comment on above: Expected: 03/15/2023, Expires: 4 Start: 03-15-2023 End: 12-16-2023 Hemoglobin A1c in Blood HGB A1C Lab Routine Controlled type 2 diabetes mellitus without complication, without long-term current use of insulin (HCC) Expected: 03/15/2023, Expires: 12/16/2023 [facility] Work Phone: Comment on above: Expected: 03/15/2023, Expires: 4 Start: 03-15-2023 End: 12-16-2023 Lipid 1996 panel - Serum or Plasma LIPID PANEL BASIC Lab Routine Controlled type 2 diabetes mellitus without complication, without long-term current use of insulin (HCC) Expected: 03/15/2023, Expires: 12/16/2023 [facility] Work Phone: Comment on above: Expected: 03/15/2023, Expires: 4 Start: 03-15-2023 End: 12-16-2023 Thyrotropin [Units/volume] in Serum or Plasma TSH BLD Lab Routine 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 Expected: 03/15/2023, Expires: 12/16/2023 [facility] Work Phone: Comment on above: Expected: 03/15/2023, Expires: 4 Start: 2023 HPV TESTING HPV TESTING [facility] Start: 2023 Screening for malignant neoplasm of cervix HPV Testing [facility] Start: 02-05-2023 End: 02-05-2023 Blood culture [facility] Start: 12-28-2022 ANNUAL PCP TEAM CHRONIC DISEASE VISIT ANNUAL PCP TEAM CHRONIC DISEASE VISIT [facility] Start: 11-30-2022 End: 01-30-2023 Hepatic function 2000 panel - Serum or Plasma HEPATIC FUNCTION PNL Lab Routine Elevated liver enzymes Expected: 11/30/2022, Expires: 01/30/2023 [facility] Work Phone: Comment on above: Expected: 11/30/2022, Expires: 3 Start: 11-25-2022 End: 01-25-2023 Comprehensive metabolic 2000 panel - Serum or Plasma COMP METABOLIC PANEL Lab Routine Malnutrition of mild degree (HCC) Expected: 11/25/2022, Expires: 01/25/2023 [facility] Work Phone: Comment on above: Expected: 11/25/2022, Expires: 3 Start: 11-24-2022 End: 01-24-2023 C reactive protein [Mass/volume] in Serum or Plasma [facility] Work Phone: Comment on above: Expected: 11/24/2022, Expires: 3 Start: 11-24-2022 End: 01-24-2023 Comprehensive metabolic 2000 panel - Serum or Plasma [facility] Work Phone: Comment on above: Expected: 11/24/2022, Expires: 3 Start: 11-24-2022 End: 01-24-2023 KING TORRES PANEL [facility] Work Phone: Comment on above: Expected: 11/24/2022, Expires: 3 Start: 11-24-2022 End: 01-24-2023 Hemoglobin A1c in Blood [facility] Work Phone: Comment on above: Expected: 11/24/2022, Expires: 3 Start: 11-24-2022 End: 01-24-2023 Nuclear Ab [Presence] in Serum by Immunoassay [facility] Work Phone: Comment on above: Expected: 11/24/2022, Expires: 3 Start: 10-25-2022 End: 12-25-2022 Thyrotropin [Units/volume] in Serum or Plasma TSH BLD Lab Routine 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 Expected: 10/25/2022, Expires: 12/25/2022 [facility] Work Phone: Comment on above: Expected: 10/25/2022, Expires: 3 Start: 10-25-2022 End: 12-25-2022 Thyroxine (T4) free [Mass/volume] in Serum or Plasma T4 FREE/FREE THYROX Lab Routine 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 Expected: 10/25/2022, Expires: 12/25/2022 [facility] Work Phone: Comment on above: Expected: 10/25/2022, Expires: 3 Start: 10-25-2022 End: 12-25-2022 Triiodothyronine (T3) Free [Mass/volume] in Serum or Plasma T3 FREE BLD Lab Routine 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 Expected: 10/25/2022, Expires: 12/25/2022 [facility] Work Phone: Comment on above: Expected: 10/25/2022, Expires: 3 Start: 10-05-2022 End: 10-19-2022 Influenza virus A and B RNA and SARS-CoV-2 (COVID-19) N gene panel - Respiratory specimen by PINKY with probe detection COVID WITH FLUA+B, ROUTINE Microbiology Routine Flu-like symptoms Expected: 10/05/2022, Expires: 10/19/2022 [facility] Work Phone: Comment on above: Expected: 10/05/2022, Expires: 2 Start: 09-10-2022 End: 09-10-2022 [facility] Work Phone: Start: 09-08-2022 Removal of urinary catheter [facility] Work Phone: Start: 08-14-2022 Patient discharge [facility] Work Phone: Start: 08-09-2022 Ambulation without limitation [facility] Work Phone: Start: 08-09-2022 Assessment of risk of venous thromboembolism [facility] Work Phone: Start: 08-09-2022 Insertion of catheter into peripheral vein [facility] Work Phone: Start: 08-09-2022 Measuring intake and output [facility] Work Phone: Start: 08-09-2022 Providing care according to standard [facility] Work Phone: Start: 08-09-2022 End: 08-09-2022 [facility] Work Phone: Start: 08-09-2022 Following clinical pathway protocol [facility] Work Phone: Start: 08-09-2022 Care regimes management [facility] Work Phone: Start: 08-09-2022 Notification of physician [facility] Work Phone: Start: 08-09-2022 Admission procedure [facility] Work Phone: Start: 08-09-2022 Patient referral to dietitian [facility] Work Phone: Start: 08-01-2022 End: 10-01-2022 Hepatic function 2000 panel - Serum or Plasma HEPATIC FUNCTION PNL Lab Routine Abnormal LFTs Expected: 08/01/2022, Expires: 10/01/2022 [facility] Work Phone: Comment on above: Expected: 08/01/2022, Expires: Start: 08-01-2022 End: 10-01-2022 Smooth muscle Ab [Presence] in Serum SMOOTH MUSCLE AB SCR Lab Routine Abnormal LFTs Expected: 08/01/2022, Expires: 10/01/2022 [facility] Work Phone: Comment on above: Expected: 08/01/2022, Expires: 2 Start: 07-14-2022 End: 09-13-2022 CBC W Auto Differential panel - Blood CBC + DIFF Lab Routine Hyperemesis Elevated liver enzymes Expected: 07/14/2022, Expires: 09/13/2022 [facility] Work Phone: Comment on above: Expected: 07/14/2022, Expires: 2 Start: 07-14-2022 End: 09-13-2022 Comprehensive metabolic 2000 panel - Serum or Plasma COMP METABOLIC PANEL Lab Routine Hyperemesis Elevated liver enzymes Expected: 07/14/2022, Expires: 09/13/2022 [facility] Work Phone: Comment on above: Expected: 07/14/2022, Expires: 2 Start: 06-23-2022 Influenza vaccination [facility] Start: 04-19-2022 End: 05-03-2022 Influenza virus A and B RNA and SARS-CoV-2 (COVID-19) N gene panel - Respiratory specimen by PINKY with probe detection COVID WITH FLUA+B, ROUTINE Microbiology Routine Sore throat Expected: 04/19/2022, Expires: 05/03/2022 [facility] Work Phone: Comment on above: Expected: 04/19/2022, Expires: 2 Start: 02-04-2022 End: 04-06-2022 Aldolase [Enzymatic activity/volume] in Serum or Plasma ALDOLASE BLD Lab Routine Elevated antinuclear antibody (BOBBY) level Dysphagia, unspecified type Malar rash Polyarthralgia 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 Expected: 02/04/2022, Expires: 04/06/2022 [facility] Work Phone: Comment on above: Expected: 02/04/2022, Expires: 2 Start: 02-04-2022 End: 04-06-2022 BOBBY BY IFA WITH REFLEX BOBBY BY IFA WITH REFLEX Lab Routine Elevated antinuclear antibody (BOBBY) level Dysphagia, unspecified type Malar rash Polyarthralgia 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 Expected: 02/04/2022, Expires: 04/06/2022 [facility] Work Phone: Comment on above: Expected: 02/04/2022, Expires: 2 Start: 02-04-2022 End: 04-06-2022 ANTI NEUTRO CYTO AB ANTI NEUTRO CYTO AB Lab Routine Elevated antinuclear antibody (BOBBY) level Dysphagia, unspecified type Malar rash Polyarthralgia 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 Expected: 02/04/2022, Expires: 04/06/2022 [facility] Work Phone: Comment on above: Expected: 02/04/2022, Expires: 2 Start: 02-04-2022 End: 04-06-2022 BLOOD TB SCREEN BLOOD TB SCREEN Lab Routine Elevated antinuclear antibody (BOBBY) level Dysphagia, unspecified type Malar rash Polyarthralgia 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 Expected: 02/04/2022, Expires: 04/06/2022 [facility] Work Phone: Comment on above: Expected: 02/04/2022, Expires: 2 Start: 02-04-2022 End: 04-06-2022 C reactive protein [Mass/volume] in Serum or Plasma C-REACTIVE PROTEIN (CRP) Lab Routine Elevated antinuclear antibody (BOBBY) level Dysphagia, unspecified type Malar rash Polyarthralgia 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 Expected: 02/04/2022, Expires: 04/06/2022 [facility] Work Phone: Comment on above: Expected: 02/04/2022, Expires: 2 Start: 02-04-2022 End: 04-06-2022 CBC W Auto Differential panel - Blood CBC + DIFF Lab Routine Elevated antinuclear antibody (BOBBY) level Dysphagia, unspecified type Malar rash Polyarthralgia 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 Expected: 02/04/2022, Expires: 04/06/2022 [facility] Work Phone: Comment on above: Expected: 02/04/2022, Expires: 2 Start: 02-04-2022 End: 04-06-2022 Chronic hepatitis differentiation between hepatitis B and C virus panel - Serum or Plasma HEP REMOTE PANEL BL Lab Routine Elevated antinuclear antibody (BOBBY) level Dysphagia, unspecified type Malar rash Polyarthralgia 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 Expected: 02/04/2022, Expires: 04/06/2022 [facility] Work Phone: Comment on above: Expected: 02/04/2022, Expires: 2 Start: 02-04-2022 End: 04-06-2022 CK CREATINE KINASE CK CREATINE KINASE Lab Routine Elevated antinuclear antibody (BOBBY) level Dysphagia, unspecified type Malar rash Polyarthralgia 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 Expected: 02/04/2022, Expires: 04/06/2022 [facility] Work Phone: Comment on above: Expected: 02/04/2022, Expires: 2 Start: 02-04-2022 End: 04-06-2022 Complement C3 [Mass/volume] in Serum or Plasma C3 COMPLEMENT BLD Lab Routine Elevated antinuclear antibody (BOBBY) level Dysphagia, unspecified type Malar rash Polyarthralgia 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 Expected: 02/04/2022, Expires: 04/06/2022 [facility] Work Phone: Comment on above: Expected: 02/04/2022, Expires: 2 Start: 02-04-2022 End: 04-06-2022 Complement C4 [Mass/volume] in Serum or Plasma C4 COMPLEMENT BLD Lab Routine Elevated antinuclear antibody (BOBBY) level Dysphagia, unspecified type Malar rash Polyarthralgia 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 Expected: 02/04/2022, Expires: 04/06/2022 [facility] Work Phone: Comment on above: Expected: 02/04/2022, Expires: 2 Start: 02-04-2022 End: 04-06-2022 Comprehensive metabolic 2000 panel - Serum or Plasma COMP METABOLIC PANEL Lab Routine Elevated antinuclear antibody (BOBBY) level Dysphagia, unspecified type Malar rash Polyarthralgia 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 Expected: 02/04/2022, Expires: 04/06/2022 [facility] Work Phone: Comment on above: Expected: 02/04/2022, Expires: 2 Start: 02-04-2022 End: 04-06-2022 Cyclic citrullinated peptide IgG Ab [Units/volume] in Serum or Plasma CCP ANTIBODY IGG Lab Routine Elevated antinuclear antibody (BOBBY) level Dysphagia, unspecified type Malar rash Polyarthralgia 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 Expected: 02/04/2022, Expires: 04/06/2022 [facility] Work Phone: Comment on above: Expected: 02/04/2022, Expires: 2 Start: 02-04-2022 End: 04-06-2022 DNA double strand Ab [Units/volume] in Serum by Immunoassay DNA AB DS + CONF BLD Lab Routine Elevated antinuclear antibody (BOBBY) level Dysphagia, unspecified type Malar rash Polyarthralgia 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 Expected: 02/04/2022, Expires: 04/06/2022 [facility] Work Phone: Comment on above: Expected: 02/04/2022, Expires: 2 Start: 02-04-2022 End: 04-06-2022 Erythrocyte sedimentation rate SED RATE WESTERGREN Lab Routine Elevated antinuclear antibody (BOBBY) level Dysphagia, unspecified type Malar rash Polyarthralgia 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 Expected: 02/04/2022, Expires: 04/06/2022 [facility] Work Phone: Comment on above: Expected: 02/04/2022, Expires: 2 Start: 02-04-2022 End: 04-06-2022 Extractable nuclear Ab panel - Serum ANTI JARAD ID Lab Routine Elevated antinuclear antibody (BOBBY) level Dysphagia, unspecified type Malar rash Polyarthralgia 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 Expected: 02/04/2022, Expires: 04/06/2022 [facility] Work Phone: Comment on above: Expected: 02/04/2022, Expires: 2 Start: 02-04-2022 End: 04-06-2022 G-6-PD QUANTITATIVE G-6-PD QUANTITATIVE Lab Routine Elevated antinuclear antibody (BOBBY) level Dysphagia, unspecified type Malar rash Polyarthralgia 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 Expected: 02/04/2022, Expires: 04/06/2022 [facility] Work Phone: Comment on above: Expected: 02/04/2022, Expires: 2 Start: 02-04-2022 End: 04-06-[address]TICO[address] Lab Routine Elevated antinuclear antibody (BOBBY) level Dysphagia, unspecified type Malar rash Polyarthralgia 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 Expected: 02/04/2022, Expires: 04/06/2022 [facility] Work Phone: Comment on above: Expected: 02/04/2022, Expires: 2 Start: 02-04-2022 End: 04-06-2022 POLYMYOSITIS AND DERMATOMYOSITIS PANEL POLYMYOSITIS AND DERMATOMYOSITIS PANEL Lab Routine Elevated antinuclear antibody (BOBBY) level Dysphagia, unspecified type Malar rash Polyarthralgia 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 Expected: 02/04/2022, Expires: 04/06/2022 [facility] Work Phone: Comment on above: Expected: 02/04/2022, Expires: 2 Start: 02-04-2022 End: 04-06-2022 Protein/Creatinine [Mass Ratio] in Urine PROTEIN CREATININE RATIO Lab Routine Elevated antinuclear antibody (BOBBY) level Dysphagia, unspecified type Malar rash Polyarthralgia 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 Expected: 02/04/2022, Expires: 04/06/2022 [facility] Work Phone: Comment on above: Expected: 02/04/2022, Expires: 2 Start: 02-04-2022 End: 04-06-2022 RHEUMATOID FACTOR BL RHEUMATOID FACTOR BL Lab Routine Elevated antinuclear antibody (BOBBY) level Dysphagia, unspecified type Malar rash Polyarthralgia 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 Expected: 02/04/2022, Expires: 04/06/2022 [facility] Work Phone: Comment on above: Expected: 02/04/2022, Expires: 2 Start: 02-04-2022 End: 04-06-2022 T4 FREE/FREE THYROX T4 FREE/FREE THYROX Lab Routine Elevated antinuclear antibody (BOBBY) level Dysphagia, unspecified type Malar rash Polyarthralgia 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 Expected: 02/04/2022, Expires: 04/06/2022 [facility] Work Phone: Comment on above: Expected: 02/04/2022, Expires: 2 Start: 02-04-2022 End: 04-06-2022 Thyroglobulin Ab [Units/volume] in Serum or Plasma THYROGLOBULIN AB Lab Routine Elevated antinuclear antibody (BOBBY) level Dysphagia, unspecified type Malar rash Polyarthralgia 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 Expected: 02/04/2022, Expires: 04/06/2022 [facility] Work Phone: Comment on above: Expected: 02/04/2022, Expires: 2 Start: 02-04-2022 End: 04-06-2022 THYROID PEROXIDASE ANTIBODY BLOOD THYROID PEROXIDASE ANTIBODY BLOOD Lab Routine Elevated antinuclear antibody (BOBBY) level Dysphagia, unspecified type Malar rash Polyarthralgia 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 Expected: 02/04/2022, Expires: 04/06/2022 [facility] Work Phone: Comment on above: Expected: 02/04/2022, Expires: 2 Start: 02-04-2022 End: 04-06-2022 Thyrotropin [Units/volume] in Serum or Plasma TSH BLD Lab Routine Elevated antinuclear antibody (BOBBY) level Dysphagia, unspecified type Malar rash Polyarthralgia 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 Expected: 02/04/2022, Expires: 04/06/2022 [facility] Work Phone: Comment on above: Expected: 02/04/2022, Expires: 2 Start: 02-04-2022 End: 04-06-2022 TPMT PHENOTYPE/ENZYME ACTIVITY TPMT PHENOTYPE/ENZYME ACTIVITY Lab Routine Elevated antinuclear antibody (BOBBY) level Dysphagia, unspecified type Malar rash Polyarthralgia 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 Expected: 02/04/2022, Expires: 04/06/2022 [facility] Work Phone: Comment on above: Expected: 02/04/2022, Expires: 2 Start: 02-04-2022 End: 04-06-2022 TSH RECEPTOR AB TSH RECEPTOR AB Lab Routine Elevated antinuclear antibody (BOBBY) level Dysphagia, unspecified type Malar rash Polyarthralgia 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 Expected: 02/04/2022, Expires: 04/06/2022 [facility] Work Phone: Comment on above: Expected: 02/04/2022, Expires: 2 Start: 02-04-2022 End: 04-06-2022 Urinalysis complete panel - Urine URINALYSIS, WITH MICROSCOPIC Lab Routine Elevated antinuclear antibody (BOBBY) level Dysphagia, unspecified type Malar rash Polyarthralgia 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 Expected: 02/04/2022, Expires: 04/06/2022 [facility] Work Phone: Comment on above: Expected: 02/04/2022, Expires: 2 Start: 02-04-2022 End: 04-06-2022 VITAMIN D 25 HYDROXY VITAMIN D 25 HYDROXY Lab Routine Elevated antinuclear antibody (BOBBY) level Dysphagia, unspecified type Malar rash Polyarthralgia 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 Expected: 02/04/2022, Expires: 04/06/2022 [facility] Work Phone: Comment on above: Expected: 02/04/2022, Expires: 2 Start: 06-23-2021 Influenza vaccination INFLUENZA (#1) [facility] Start: 06-23-2020 Influenza vaccination given Sequential Influenza Vaccine (#1) [facility] Start: 2020 HPV Vaccine (1 - 3-dose SCDM series) HPV Vaccine (1 - 3-dose SCDM series) [facility] Start: 06-23-2019 Influenza vaccination Flu vaccine (#1) [place] Start: 01-05-2017 PNEUMOCOCCAL (2 - PCV) PNEUMOCOCCAL (2 - PCV) [facility] Start: 01-05-2017 Pneumococcal vaccination [facility] Start: 05-31-2016 Urine microalbumin profile [facility] Start: 11-21-2014 Screening for malignant neoplasm of cervix Pap Smear [facility] Start: 2014 Cervical cancer screen Cervical cancer screen [place], [place] Start: 2014 Screening for malignant neoplasm of cervix CERVICAL CANCER SCREENING DISCUSSION [facility] Start: 2012 DTaP/Tdap/Td vaccine (1 - Tdap) DTaP/Tdap/Td vaccine (1 - Tdap) [place] Start: 2012 SHINGRIX VACCINE (1 of 2) SHINGRIX VACCINE (1 of 2) [facility] Start: 2012 Third diphtheria, tetanus and acellular pertussis (DTaP) vaccination TDAP (ADULT) [facility] Start: 2011 Hepatitis C antibody, confirmatory test Hepatitis C Screening [facility] Start: 2011 HEPATITIS C SCREENING HEPATITIS C SCREENING [facility] Start: 2011 HIV SCREENING HIV SCREENING [facility] Start: 2011 HIV screening HIV Screening [facility] Start: 2011 SPIROMETRY SPIROMETRY [facility] Start: 2011 Tetanus vaccination TETANUS [facility] Start: 2008 HIV screen HIV screen [place], [place] Start: 2008 HIV screening [facility] Start: 2008 HPV vaccine (1 - Female 3-dose series) HPV vaccine (1 - Female 3-dose series) [place] Start: 2006 Varicella Vaccine (1 of 2 - 13+ 2-dose series) Varicella Vaccine (1 of 2 - 13+ 2-dose series) [place] Start: 2005 Adolescent depression screening assessment Depression Screening (PHQ9) [facility] Start: 2003 Glaucoma screening Dilated Retinal Exam [facility] Start: 2003 Hepatitis B screening Urine Albumin:Creatinine Ratio [facility] Start: 2003 Hepatitis C antibody, confirmatory test Dilated Retinal Exam [facility] Start: 1998 COVID-19 VACCINE (#1) COVID-19 VACCINE (#1) [facility] Start: 1998 COVID-19 VACCINE (1) COVID-19 VACCINE (1) [facility] Start: 1996 History and physical examination, annual for health maintenance Wellness Visit [facility] Start: 1993 COVID-19 VACCINE (#1) COVID-19 VACCINE (#1) [facility] Start: 1993 Tetanus vaccination Tetanus: Every 10yrs [facility] Bacteria identified in Blood by Culture Blood Culture [facility] Bacteria identified in Urine by Culture URINE CULTURE Microbiology Routine Urinary frequency 04/13/2023 6:26 PM EDT [facility] Work Phone: End: 08-01-2023 COLONOSCOPY DIAGNOSTIC COLONOSCOPY DIAGNOSTIC Endoscopy Routine Diarrhea, unspecified type 1 Occurrences starting 08/01/2022 until 08/01/2023 [facility] Work Phone: Comment on above: 1 Occurrences starting 08/01/2022 until 08/01/2023 End: 09-14-2023 COLONOSCOPY DIAGNOSTIC COLONOSCOPY DIAGNOSTIC Endoscopy Routine Diarrhea, unspecified type 1 Occurrences starting 09/14/2022 until 09/14/2023 [facility] Work Phone: Comment on above: 1 Occurrences starting 09/14/2022 until 09/14/2023 End: 09-21-2024 Comprehensive metabolic 2000 panel - Serum or Plasma COMP METABOLIC PANEL Lab Routine ACI (adrenal cortical insufficiency) (HCC) Every 3 months for 2 Occurrences starting 09/22/2023 until 09/21/2024 [facility] Work Phone: Comment on above: Every 3 months for 2 Occurrences startin g 09/22/2023 until 09/21/2024 PETERSON - DISCONTINUE PETERSON - DISC ONTINUE Procedures Routine Retention of urine Ordered: 09/08/2022 [facility] Work Phone: Comment on above: Ordered: 09/08/2022 End: 09-21-2024 Hemoglobin A1c in Blood HGB A1C Lab Routine Controlled type 2 diabetes mellitus without complication, without long-term current use of insulin (HCC) Every 3 months for 2 Occurrences starting 09/22/2023 until 09/21/2024 [facility] Work Phone: Comment on above: Every 3 months for 2 Occurrences startin g 09/22/2023 until 09/21/2024 Hepatitis A virus Ig M Ab [Presence] in Serum [facility] Hepatitis B core ant ibody measurement, IgM type [facility] Hepatitis B surface antigen measurement [facility] Hepatitis C antibody measurement [facility] Homocysteine [Moles/Vol] [facility] Influenza virus A an d B RNA and SARS-CoV-2 (COVID-19) N gene panel - Respiratory specimen by PINKY with probe detection COVID WITH FLUA+B, ROUTINE Microbiology Routine Viral syndrome Ordered: 01/17/2023 [facility] Work Phone: Comment on above: Ordered: 01/17/2023 Lactic acid measurement [facility] End: 09-21-2024 Lipid 1996 panel - Serum or Plasma LIPID PANEL BASIC Lab Routine 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 Every 3 months for 2 Occurrences starting 09/22/2023 until 09/21/2024 [facility] Work Phone: Comment on above: Every 3 months for 2 Occurrences startin g 09/22/2023 until 09/21/2024 Patient Education [facility] Work Phone: Patient referral [facility] Work Phone: End: 2023 Radiologic exam chest 2 views XR CHEST 2V FRONTAL/LAT Radiology Routine Elevated antinuclear antibody (BOBBY) level Dysphagia, unspecified type Malar rash Polyarthralgia 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 1 Occurrences starting 02/04/2022 until 2023 [facility] Work Phone: Comment on above: 1 Occurrences starting 02/04/2022 until 2023 End: 06-25-2022 Standard ECG [facility] Comment on above: One Time for 1 Occurrences starting 12/2021 until 06/25/2022 SURG PATH REQUEST [facility] Work Phone: Comment on above: Release Upon Ordering for 1 Occurrences starting 07/04/2022, 1 completed End: 09-21-2024 Thyrotropin [Units/volume] in Serum or Plasma TSH BLD Lab Routine 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 Every 3 months for 2 Occurrences starting 09/22/2023 until 09/21/2024 [facility] Work Phone: Comment on above: Every 3 months for 2 Occurrences startin g 09/22/2023 until 09/21/2024 Troponin T.cardiac [Mass/volume] in Serum or Plasma by High sensitivity method [facility] Urine culture Urine Culture [facility] Work Phone: VOIDING TRIAL PROTOCOL VOIDING T RIAL PROTOCOL Procedures Routine Retention of urine Ordered: 09/14/2022 [facility] Work Phone: Comment on above: Ordered: 09/14/2022 End: 2023 XR ANKLE GENERAL 3V AP/LAT/OBL BILATERAL XR ANKLE GENERAL 3V AP/LAT/OBL BILATERAL Radiology Routine Elevated antinuclear antibody (BOBBY) level Dysphagia, unspecified type Malar rash Polyarthralgia 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 1 Occurrences starting 02/04/2022 until 2023 [facility] Work Phone: Comment on above: 1 Occurrences starting 02/04/2022 until 2023 End: 2023 XR FOOT GENERAL 3V AP/LAT/OBL BILATERAL XR FOOT GENERAL 3V AP/LAT/OBL BILATERAL Radiology Routine Elevated antinuclear antibody (BOBBY) level Dysphagia, unspecified type Malar rash Polyarthralgia 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 1 Occurrences starting 02/04/2022 until 2023 [facility] Work Phone: Comment on above: 1 Occurrences starting 02/04/2022 until 2023 End: 2023 XR HAND GENERAL 3V PA/LAT/OBL BILATERAL XR HAND GENERAL 3V PA/LAT/OBL BILATERAL Radiology Routine Elevated antinuclear antibody (BOBBY) level Dysphagia, unspecified type Malar rash Polyarthralgia 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 1 Occurrences starting 02/04/2022 until 2023 [facility] Work Phone: Comment on above: 1 Occurrences starting 02/04/2022 until 2023 End: 09-06-2025 XR Lumbar spine 3 Views XR LUMBAR GENERAL 3V AP/LAT/L5-S1 Radiology Routine Acute bilateral low back pain with right-sided sciatica 1 Occurrences starting 08/07/2024 until 09/06/2025 [facility] Comment on above: 1 Occurrences starting 08/07/2024 until 09/06/2025 End: 07-09-2026 XR Shoulder - left 3 Views XR SHOULDER GENERAL 3V OR MORE AP/TRUE AP/OTHER LEFT Radiology Routine Contusion of multiple sites of left shoulder and upper arm, subsequent encounter Contusion of left hip, subsequent encounter 1 Occurrences starting 06/09/2025 until 07/09/2026 [facility] Work Phone: Comment on above: 1 Occurrences starting 06/09/2025 until 07/09/2026 XR Shoulder - left 3 Views XR SHOULDER GENERAL 3V OR MORE AP/TRUE AP/OTHER LEFT Radiology Routine Contusion of multiple sites of left shoulder and upper arm, subsequent encounter Contusion of left hip, subsequent encounter 06/09/2025 4:00 PM EDT [facility] End: 2023 XR WRIST GENERAL 3V PA/LAT/OBL BILATERAL XR WRIST GENERAL 3V PA/LAT/OBL BILATERAL Radiology Routine Elevated antinuclear antibody (BOBBY) level Dysphagia, unspecified type Malar rash Polyarthralgia 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 1 Occurrences starting 02/04/2022 until 2023 [facility] Work Phone: Comment on above: 1 Occurrences starting 02/04/2022 until 2023 [facility] Immunizations Immunization Date Immunization Notes Care Provider Fa cili 11-22-2023 tetanus toxoid, redu samuel diphtheria toxoid, and acellular pertussis vaccine, adsorbed Isaias Bradley MD Work Phone: [facility] 08-17-2018 influenza virus vacc ine, unspecified formulation Samantha Felix MD Work Phone: [facility] 01-06-2016 pneumococcal polysaccharide vaccine, 23 valent Hanh Barrera RN [facility] 05-31-2006 tetanus toxoid, redu samuel diphtheria toxoid, and acellular pertussis vaccine, adsorbed Hanh Barrera RN [facility] 06-02-2004 tetanus toxoid, adsorbed Hanh christian RN [facility] 12-10-1997 diphtheria, tetanus toxoids and acellular pertussis vaccine, unspecified formulation Hanh Barrera [facility] 12-10-1997 measles, mumps and rubella virus vaccine Hanh Barrera RN [facility] 12-10-1997 trivalent poliovirus vaccine, live, oral Hanh Barrera [facility] 06-21-1994 diphtheria, tetanus toxoids and acellular pertussis vaccine, unspecified formulation Hanh Barrera [facility] 06-21-1994 haemophilus influenz ae type b vaccine, conjugate unspecified formulation Hanh Barrera [facility] 06-21-1994 measles, mumps and rubella virus vaccine Hanh Barrera [facility] 1993 hepatitis B vaccine, pediatric or pediatric/adolescent dosage Hanh Barrera RN [facility] 1993 diphtheria, tetanus toxoids and pertussis vaccine Hanh Barrera RN [facility] 1993 haemophilus influenz ae type b vaccine, conjugate unspecified formulation Hanh Barrera RN [facility] 1993 trivalent poliovirus vaccine, live, oral Hanh Barrera [facility] 1993 diphtheria, tetanus toxoids and pertussis vaccine Hanh Barrera [facility] 1993 haemophilus influenz ae type b vaccine, conjugate unspecified formulation Hanh Barrera [facility] 1993 trivalent poliovirus vaccine, live, oral Hanh Barrera [facility] 1993 hepatitis B vaccine, pediatric or pediatric/adolescent dosage Hanh Barrera RN [facility] 1993 diphtheria, tetanus toxoids and pertussis vaccine Hanh Barrera RN [facility] 1993 haemophilus influenz ae type b vaccine, conjugate unspecified formulation Hanh Barrera RN [facility] 1993 hepatitis B vaccine, pediatric or pediatric/adolescent dosage Hanh Barrera RN [facility] 1993 trivalent poliovirus vaccine, live, oral Hanh Barrera RN [facility] Payers Date Payer Category Payer Self-pay [id number] 2022 Unknown [facility] [id number] 2022-Present [address] [place] [address] [id number] 2022 Unknown [id number] 2020 Medicaid [id number] [id number] 2020 Unknown [id number] [id number] .[id number] 2017 Unknown [id number] 2014 Unknown [id number] 2014 Unknown [employer] [address] xxxxxxxxxxxx 2014-Present [phone] [address] [place] [address] xxxxxxxxxxxx [id number] .[id number] 2012 Unknown [id number] 1993 Unknown [id number] 2.16.840.1.946955.3.579.2.174 1993 Unknown [id number] 2.16.840.1.114527.3.579.2.903 1993 Unknown [id number] 2.16.840.1.971329.3.579.2.594 1993 Unknown [id number] 2.16.840.1.381804.3.579.2.627 1993 Unknown [id number] 2.16.840.1.185905.3.579.2.651 1993 Unknown [id number] 2.16.840.1.840489.3.579.2.651 1993 Unknown [id number] 2.16.840.1.060606.3.579.2.651 1993 Unknown [id number] 2.16.840.1.171453.3.579.2.651 1993 Unknown [id number] 2.16.840.1.961208.3.579.2.651 1993 Unknown [id number] 2.16.840.1.834228.3.579.2.651 1993 Unknown [id number] 2.16.840.1.141401.3.579.2.651 1993 Unknown [id number] 2.16.840.1.299220.3.579.2.651 1993 Unknown [id number] 2.16.840.1.959123.3.579.2.651 1993 Unknown [id number] 2.16.840.1.791850.3.579.2.651 Unknown [id number] 2.16.840.1.381961.3.579.2.462 Unknown [id number] 2.16.840.1.599522.3.579.2.462 Unknown [id number] 2.16.840.1.013965.3.579.2.462 Unknown [id number] 2.16.840.1.083271.3.579.2.462 Unknown [id number] 2.16.840.1.710692.3.579.2.462 Unknown [id number] 2.16.840.1.279567.3.579.2.462 Unknown [id number] 2.16.840.1.959603.3.579.2.462 Unknown [id number] 2.16.840.1.451696.3.579.2.462 Unknown [id number] 2.16.840.1.486309.3.579.2.462 Unknown [id number] 2.16.840.1.677054.3.579.2.462 Unknown [id number] 2.16.840.1.258355.3.579.2.462 Unknown [id number] 2.16.840.1.222155.3.579.2.462 Unknown [id number] 2.16.840.1.466375.3.579.2.462 Unknown [id number] 2.16.840.1.859045.3.579.2.462 Unknown [id number] 2.16.840.1.519350.3.579.2.462 Unknown [id number] 2.16.840.1.181661.3.579.2.462 Unknown [id number] 2.16.840.1.700510.3.579.2.462 Unknown [id number] 2.16.840.1.400577.3.579.2.462 Unknown [id number] 2.16.840.1.481652.3.579.2.462 Social History Date Type Detail Facility Start: 07-21-2019 End: 09-14-2020 Tobacco smoking status NHIS Never smoker [place] Start: 09-14-2020 End: 06-09-2025 Tobacco use and exposure Never used [facility] Start: 1995 Sex Assigned At Not on file M [place] Start: 01-04-2022 End: 09-06-2022 Exposure to SARS-CoV-2 (event) Not sure [facility] Start: 07-21-2019 Alcohol Comment occ. Kellen Escudero enrico KAMRANADRIÁN Start: 10-20-2015 End: 07-20-2025 Tobacco smoking status NHIS Ex-smoker [facility] Start: 10-17-2007 End: 10-17-2015 History of tobacco use Current smoker [facility] Start: 10-17-2007 End: 10-17-2015 History of tobacco use Cigarette Smoker [facility] Start: 10-20-2015 End: 08-07-2024 Cigarettes smoked current (pack per day) - Reported 0.5 [facility] Start: 01-15-2022 End: 06-09-2025 Alcohol intake Ex-drinker (finding) [facility] Start: 07-10-2020 End: 10-18-2022 History SDOH Alcohol Frequency 3 [facility] Start: 07-10-2020 History SDOH Alcohol Std Drinks 98 [facility] Start: 07-10-2020 End: 09-21-2021 History SDOH Alcohol Binge 1 [facility] Start: 01-07-2022 History SDOH Alcohol Comment socially [facility] Start: 07-10-2020 History SDOH Social Connections Phone 4 [facility] Start: 07-10-2020 End: 02-06-2023 History SDOH Social Connections Get Together 2 [facility] Start: 07-10-2020 End: 02-06-2023 History SDOH Financial 5 [facility] Start: 07-10-2020 Education 12 [facility] Start: 10-20-2015 End: 07-14-2022 Tobacco Comment quit on 10/17/15 [facility] Start: 1995 Sex Assigned At Female C [facility] Start: 06-27-2017 History SDOH Alcohol Comment social [facility] Start: 07-11-2022 End: 07-24-2023 Tobacco smoking status TNIS Unknown if ever smoked [facility] Start: 05-09-2015 Rare [facility] Start: 05-09-2015 Marijuana [facility] Start: 02-02-2021 With Family [facility] Start: 12-21-2020 Non-smoker [facility] Start: 10-18-2022 End: 08-07-2024 Social connection and isolation panel [facility] Do you belong to any clubs or organizations such as lutheran groups, [employer], [employer] or athletic groups, or school groups? No [facility] Are you now , , , , never or living with a partner? [facility] How often to you hav e a drink containing alcohol? Monthly or less [facility] How many standard drinks containing alcohol do you have on a typical day? 1 or 2 [facility] How often do you hav e 6 or more drinks on 1 occasion? Never [facility] Start: 06-05-2013 How hard is it for y ou to pay for the very basics like food, housing, medical care, and heating Not hard at all [facility] Do you feel stress - tense, restless, nervous, or anxious, or unable to sleep at night because your mind is troubled all the time - these days [OSQ] Very much [facility] (I/We) worried wheth er (my/our) food would run out before (I/we) got money to buy more. Never true [facility] Start: 07-19-2021 Gender identity Identifies as female gender (finding) [facility] Do you belong to any clubs or organizations such as lutheran groups, [employer], [employer] or athletic groups, or school groups? Yes [facility] How often to you hav e a drink containing alcohol? 2-4 times a month [facility] Do you feel stress - tense, restless, nervous, or anxious, or unable to sleep at night because your mind is troubled all the time - these days [OSQ] Rather much [facility] (I/We) worried wheth er (my/our) food would run out before (I/we) got money to buy more. DK or Refused [facility] How hard is it for y ou to pay for the very basics like food, housing, medical care, and heating Not very hard [facility] Tobacco smoking status No Smokin g Status Entered [facility] Start: 02-16-2025 Sex Female (finding) [facility] Do you feel stress - tense, restless, nervous, or anxious, or unable to sleep at night because your mind is troubled all the time - these days [OSQ] To some extent [facility] NEGATED: Highlighted row [facility] Medical Equipment Procedure Code Equipment Code Equipment Origin al Text Equipment Identifier Dates 45mm Standard Reload FDA Start: 12-28-2020 45mm Standard Reload FDA Start: 12-28-2020 45mm Standard Reload FDA Start: 12-28-2020 Use as instructed [id number] , [id number] Start: 09-01-2022 Comment on above: Use as instructed 45mm Standard Reload FDA Start: 12-28-2020 45mm Standard Reload FDA Start: 12-28-2020 45mm Standard Reload FDA Start: 12-28-2020 45mm Standard Reload FDA Start: 12-28-2020 45mm Standard Reload FDA Start: 12-28-2020 45mm Standard Reload FDA Start: 12-28-2020 45mm Standard Reload FDA Start: 12-28-2020 45mm Standard Reload FDA Start: 12-28-2020 45mm Standard Reload FDA Start: 12-28-2020 45mm Standard Reload FDA Start: 12-28-2020 45mm Standard Reload FDA Start: 12-28-2020 45mm Standard Reload FDA Start: 12-28-2020 45mm Standard Reload FDA Start: 12-28-2020 45mm Standard Reload FDA Start: 12-28-2020 45mm Standard Reload FDA Start: 12-28-2020 45mm Standard Reload FDA Start: 12-28-2020 45mm Standard Reload FDA Start: 12-28-2020 45mm Standard Reload FDA Start: 12-28-2020 Goals Date Patient Goal Desired Activity /State Functional Status Date Assessment Result Facility 07-22-2025 Functional status Ambulates [facility] Work Phone: 06-17-2025 Functional status Bedside Commode [facility] Work Phone: 02-20-2025 Functional status Bedrest [facility] Work Phone: 05-16-2024 Functional Status Room check performed [facility] 05-16-2024 Functional Status [facility] 05-16-2024 Functional Status 7am-7pm [facility] 05-16-2024 Functional Status [facility] 05-15-2024 Functional Status [facility] 05-15-2024 Functional Status Independent [facility] 05-15-2024 Functional Status [facility] 05-14-2024 Functional Status [facility] 05-14-2024 Functional Status Lunch Percent 50 [facility] 05-14-2024 Functional Status Patient Identi fied Identification band, Verbal [facility] 05-14-2024 Functional Status Done [facility] 05-14-2024 Functional Status [facility] 05-13-2024 Functional Status Dinner Percent 90 [facility] 05-13-2024 Functional Status Multilevel home [facility] 05-13-2024 Functional Status [facility] 05-13-2024 Functional Status Breakfast Percent 0 l [facility] 05-12-2024 Functional Status Sensory Deficits None A [facility] 05-12-2024 Functional Status [facility] 05-12-2023 Are you deaf, or do you have serious difficulty hearing No 05/12/2023 12:19 PM Shae Matute RN [facility] 05-12-2023 Are you blind, or do you have serious difficulty seeing, even when wearing glasses No 05/12/2023 12:19 PM Shae Matute, RN [facility] 05-12-2023 Do you have serious difficulty walking or climbing stairs No 05/12/2023 12:19 PM Shae Matute RN [facility] 05-12-2023 Do you have difficul ty dressing or bathing No 05/12/2023 12:19 PM Shae Matute RN [facility] 05-12-2023 Because of a physica l, mental, or emotional condition, do you have difficulty doing errands alone such as visiting a physician's office or shopping No 05/12/2023 12:19 PM Shae Matute RN No [facility] 08-14-2022 Functional status Activity Ability Indepe ndent [facility] Work Phone: 08-13-2022 Functional status Ambulates [facility] Work Phone: Mental Status Date Assessment Result Facility 07-22-2025 Cognitive function Voice[facility]Name [facility] Work Phone: 06-17-2025 Cognitive function Voice[facility]Name [facility] Work Phone: 06-16-2025 Cognitive function Appropriate;Drowsy [facility] Work Phone: 02-20-2025 Cognitive function Voice/Name [facility] [facility] Work Phone: 02-16-2025 Cognitive function Awake;Follows Commands;Drowsy [facility] Work Phone: 12-10-2024 Cognitive function Level Of Cons ciousness Awake;Alert;Appropriate [facility] Work Phone: 05-16-2024 Mental Status Oriented x 4 [facility] 05-16-2024 Mental Status [facility] 05-15-2024 Mental Status [facility] 05-15-2024 Mental Status [facility] 05-12-2023 Because of a physica l, mental, or emotional condition, do you have serious difficulty concentrating, remembering, or making decisions No 05/12/2023 12:19 PM Shae Matute RN [facility] 02-23-2023 Cognitive function Awake;Alert [facility] Work Phone: 02-12-2023 Cognitive function Level Of Cons ciousness Awake;Alert;Appropriate;Fol lows Commands [facility] Work Phone: 02-04-2023 Cognitive function Voice/Name [facility] Work Phone: 10-29-2022 Cognitive function Level Of Cons ciousness Awake;Alert;Appropriate;Fol lows Commands [facility] Work Phone: 09-05-2022 Cognitive function Level Of Cons ciousness Awake;Alert;Appropriate;Fol lows Commands [facility] Work Phone: 08-14-2022 Cognitive function Voice/Name [facility] Work Phone: Clinical Notes 06-27-2017 to 08-28-2025 Note Date & Type Note Facility 08-28-2025 Note [facility] 07-22-2025 Discharge summary Note Date/Time July 22, 2025 10:02am [facility] Medical Records Department [address] [place] [address] Discharge Summary 07/22/25 0953 MR#: [id number] Acct: [id number] Name: SONIA SZYMANSKI Rep #:[id number] : 1995 30 From: Mode briceño MD PCP: Dr. Isaias Bradley MD Status:ADM I N Location: [place] [address] Providers Date of Admission: 07/20/25 Primary Care Physician: Dr. Isaias Bradley MD Reason For Visit: ADRENAL CRISIS Diagnosis Discharge Diagnosis (1) Acute adrenal insufficiency: Status: Acute Code(s): E27.40 - Unspecified adrenocortical insufficiency (2) Elevated liver enzymes: Status: Acute Code(s): R74.8 - Abnormal levels of other serum enzymes Medications at Discharge Home Medications albuterol sulfate 90 mcg/actuation aerosol inhaler (Ventolin HFA) 2 inh inhalation Q4H PRN sob 08/09/22 pantoprazole 40 mg tablet,delayed release 40 mg PO DAILY see pcp 02/23/23 atorvastatin 10 mg tablet 10 mg PO DAILY hyperlipidemia 07/24/23 clomipramine 50 mg capsule 100 mg PO BID see pcp 07/24/23 levothyroxine 125 mcg tablet 125 mcg PO DAILY see pcp 07/24/23 alprazolam 0.5 mg tablet 0.5 mg PO Q8H PRN anxiety 02/16/25 empagliflozin 10 mg tablet (Jardiance) 10 mg PO DAILY see pcp 02/16/25 lamotrigine 100 mg tablet 100 mg PO DAILY see pcp 02/16/25 lurasidone 60 mg tablet 60 mg PO QPM see pcp 02/16/25 topiramate 25 mg tablet 25 mg PO QHS migraine 02/16/25 dexamethasone 0.75 mg tablet 0.75 mg PO Q24H 06/16/25 ondansetron 4 mg disintegrating tablet 4 mg PO TID PRN nausea/vomiting 07/20/25 potassium chloride 10 mEq tablet,extended release 10 meq PO BID 07/20/25 dexamethasone 1.5 mg tablet 1.5 mg PO DAILY #18 tabs 07/22/25 oxycodone 5 mg tablet 5 mg PO Q8H PRN pain 3 days #10 tabs 07/22/25 Hospital Course Operations None Procedures None Summary of Care Provided Minutes Spent on Discharge: 33 Hospital Course: Per HPI: SONIA ZSYMANSKI, is a 30-year-old female history of Wabasso's disease, GERD, hypothyroidism, depression and anxiety who presented to [facility] ED 07/20/2025 with generalized weakness and myalgias and she was concerned she may be having an Wabasso's flare. Recently evaluated by her mold operator at [facility] and had low cortisol level so they increasedher Decadron to 0.75 mg daily, for the past week she started getting sick with cold-like symptoms and 3 days ago she started with vomiting and diarrhea. She was seen at [facility] yesterday and was given fluids as well as IV steroids and potassium but she is not feeling any better. Also complaining of some facial swelling which is typical for her Wabasso's flare. In the ED temp 98, heart rate 100 and blood pressure 138/85, respiratory rate 16 pulse ox 100% on room air. CBC with a white count of 14 and hemoglobin of 12, CMP with a BUN of 8 and creatinine 0.79, elevated liver function tests with AST of 288, ALT 502, alk phos 177, cortisol 0.12, serum negative, UA ordered but not yet obtained. Given patient's symptoms and low cortisol consistent with Wabasso's flare hospitalist contacted for admission. Patient evaluated at bedside, she reports 1 week ago she had URI-like symptoms with some cough, congestion, shortness of breath with some intermittent chest pain, nausea and congestion which has significantly improved however on Monday she felt herself started to have symptoms consistent with adrenal crisis. She was feeling weak, achy, tired and she started having significant nausea as well as diarrhea. She had a syncopal episode yesterday when she went from laying on the couch to sitting up that was brief and she went to [place] and was given fluids and potassium and discharged home however she reports she continues to feel worse selene presented to [facility] ED. Reports her only URI symptom chela little bit congestion still however the rest of her symptoms have resolved, does have headache, diarrhea and nausea but is the same as previous flares, weakness, achiness, fatigue and right upper quadrant abdominal pain. Discussed her elevated liver enzymes and she reports that in the [id number] past she had a CT of her abdomen for this right upper quadrant pain and that was when shewas told she has GROSS and no other acute abnormalities were found. Her current pain is the same pain she gets every time she has a flare. Patient notes some increased urinary frequency without any burning on urination. No fevers, no changes in vision. No rashes, bleeding, bruising. Also notes some swelling in her face which she reports is also consistent with her symptoms when she has acute adrenal insufficiency. Hospital Course: 1. 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 Respiratory panels were negative though. LFTs were also elevated which is not inconsistent with her past though they were moreelevated than usual. They have significantly improved on the day of discharge and I do recommend that she follow-up with gastroenterology as an outpatient. In the meantime she was placed on stress dose steroids of hydrocortisone 50 mg IV 4 times daily. She is feeling a little bit better despite having her abdominal pain. She would like to go home today with the steroid taper and the oxycodone that she had been given the last time she was here in the hospital. She expressed understanding of the risk and benefits of going home and would like to go home today. 2. Hypothyroidism, anxiety, depression, GERD are all chronic medical conditionswhich complicate her care. Her home medications were continued where appropriate Physical Exam Narrative General: Alert, Oriented x3, Cooperative, No apparent distress HEENT: Atraumatic, PERRLA, EOMI, Normocephalic Oral: Moist Mucosa Neck: Supple, No JVD Lungs: Diminished, Normal air movement, No rhonchi, No wheeze, No rales Cardiovascular: Regular rate, Regular Rhythm, Normal S1, Normal S2, No murmurs Abdomen: Soft, TTP RUQ, Non-Distended, No Hepato-splenomegaly Extremities: No edema, Capillary Refill Less than 3 Seconds Skin: No rashes, No breakdown Musculoskeletal: No Tenderness to Palpation of Joints or Extremities Neurological: No focal neurological deficits, Motor Exam 5/5 strength throughout, Sensory exam intact to light touch and pain Psych/Mental Status: Normal Affect, Appropriate Weight / BMI Weight Weight: 194 lb 0.108 oz Body Mass Index (BMI) 32.3 ABG / Lab / Microbiology Data 07/22/25 05:06 07/22/25 05:06 Laboratory: Laboratory Results - last 24 hr 07/22/25 05:06: WBC 12.3 H, RBC 4.41, Hgb 10.7 L, Hct 35.4 L, MCV 80.3 L, MCH 24.3 L, MCHC 30.2 L, RDW Std Deviation 48.9 H, RDW Coeff of Renetta 17.0 H, Plt Count 452 H, MPV 9.5, Immature Gran % (Auto) 1.600 H, Neut % (Auto) 68.9, Lymph % (Auto) 21.8, Freestone % (Auto) 7.5, Eos % (Auto) 0.0, Baso % (Auto) 0.2, Absolute Neuts (auto) 8.5 H, Absolute Lymphs (auto) 2.69, Nucleated RBC % 0, Sodium 140, Potassium 4.0, Chloride 103, Carbon Dioxide 23.1, Anion Gap 13, BUN 7, Creatinine 0.72, Estim Creat Clear Calc 122.90, Est GFR (MDRD) Non-Af 115, BUN/Creatinine Ratio 9.1 L, Glucose 109 H, Calcium 8.8, Total Bilirubin 0.21, AST81 H, ALT 346 H, Alkaline Phosphatase 148 H, Total Protein 6.4, Albumin 3.5, Globulin 3.0, Albumin/Globulin Ratio 1.2 Microbiology: Microbiology 07/20/25 16:31 Mucosa - Nasopharyngeal Respiratory Panel (PCR) - Final 07/20/25 14:30 Mucosa - Nose SARS-CoV-2, Influenza & RSV (PCR) - Final D/C Instructions Call your doctor if you observe: Fever of 101 or Higher, Shortness of breath, Dizziness, Fainting spells, Swelling in the ankles, Chest pain and Increased palpitations (irregular heartbeat) DC O2, CPAP, BIPAP Needs Home O2 Discharge instructions: No Meaningful Use Info Meaningful Use Meaningful Use Diagnoses (Choose all that apply): None applicable Discharge Plan Admission Admit Date/Time: 07/20/25 15:05 Attending Provider: Mode Christianson Primary Care Provider: Isaias Bradley Consulting Providers: Mary Wang Discharge Orders/Prescriptions Prescriptions: New dexamethasone 1.5 mg tablet 1.5 mg PO DAILY Qty: 18 0RF Rx Instructions: Take 3 tablets daily for 3 days then 2 tablets daily for 3 days then 1 tabletdaily for 3 days then resume your home dosing oxycodone 5 mg tablet 5 mg PO Q8H PRN (Reason: pain) 3 Days Qty: 10 0RF Continued albuterol sulfate [Ventolin HFA] 90 mcg/actuation HFA aerosol inhaler 2 inh INHALATION Q4H PRN (Reason: sob) Patient Comments: Inhale 2 Puffs as instructed every 4 hours as needed. pantoprazole 40 mg tablet,delayed release (DR/EC) 40 mg PO DAILY atorvastatin 10 mg tablet 10 mg PO DAILY Patient Comments: TAKE 1 TABLET BY MOUTH ONCE DAILY levothyroxine 125 mcg tablet 125 mcg PO DAILY Patient Comments: Take 1 tablet by mouth once daily. M=S AND 1.5 ON MONDAY clomipramine 50 mg capsule 100 mg PO BID alprazolam 0.5 mg tablet 0.5 mg PO Q8H PRN (Reason: anxiety) topiramate 25 mg tablet 25 mg PO QHS lurasidone 60 mg tablet 60 mg PO QPM lamotrigine 100 mg tablet 100 mg PO DAILY Jardiance 10 mg tablet 10 mg PO DAILY ondansetron 4 mg tablet,disintegrating 4 mg PO TID PRN (Reason: nausea/vomiting) potassium chloride 10 mEq tablet extended release 10 meq PO BID dexamethasone 0.75 mg tablet 0.75 mg PO Q24H Referrals / Follow Up: Isaias Bradley MD [Primary Care Provider, Medical] - Within 1 Week Disposition Disposition (needs filled in before D/C Order can be placed): Home, Self Care Charges/Coding Visit Charges Inpatient E&M: 30639 Disch Hosp >30min 07/22/25 1002 <Electronically signed by Mode Christianson MD> Cosigner Signature (if applicable): CC: Dr. Mode Christianson MD; Dr. Isaias Bradley MD~ Signed [facility] Work Phone: 1(185) 581-785109-30-2025 Consult note Author Tom Reed [facility] Note Date/Time July 22, 2025 9:41am [facility] Medical Records Department [address] [place] [address] Counseling Note - Pharmacy 07/22/25 0940 MR#: [id number] Acct: [id number] Name: SONIA SZYMANSKI Rep #:[id number] : 1995 30 From: Tom Reed PCP: Dr. Isaias Bradley MD Status:ADM I N Y Location: [place] [address] Pharmacy [facility] Service has performed discharge medication reconciliation and counseling for this patient. The patient's discharge medication list was reviewed for discrepancies and discrepancies were resolved. The patient was counseled on the following discharge medications and changes in medications for homegoing were reviewed. The Reason for Use, instructions for use, and potential side effects were reviewed for all new medications. The patient's questions regarding all of their medications were answered. 1. Dexamethasone taper 2. Oxycodone 5 mg PO Q8H PRN pain The patient was able to verbally demonstrate an understanding of their dischargemedications. Medications at Discharge Home Medications albuterol sulfate 90 mcg/actuation aerosol inhaler (Ventolin HFA) 2 inh inhalation Q4H PRN sob 08/09/22 pantoprazole 40 mg tablet,delayed release 40 mg PO DAILY see pcp 02/23/23 atorvastatin 10 mg tablet 10 mg PO DAILY hyperlipidemia 07/24/23 clomipramine 50 mg capsule 100 mg PO BID see pcp 07/24/23 levothyroxine 125 mcg tablet 125 mcg PO DAILY see pcp 07/24/23 alprazolam 0.5 mg tablet 0.5 mg PO Q8H PRN anxiety 02/16/25 empagliflozin 10 mg tablet (Jardiance) 10 mg PO DAILY see pcp 02/16/25 lamotrigine 100 mg tablet 100 mg PO DAILY see pcp 02/16/25 lurasidone 60 mg tablet 60 mg PO QPM see pcp 02/16/25 topiramate 25 mg tablet 25 mg PO QHS migraine 02/16/25 dexamethasone 0.75 mg tablet 0.75 mg PO Q24H 06/16/25 ondansetron 4 mg disintegrating tablet 4 mg PO TID PRN nausea/vomiting 07/20/25 potassium chloride 10 mEq tablet,extended release 10 meq PO BID 07/20/25 dexamethasone 1.5 mg tablet 1.5 mg PO DAILY #18 tabs 07/22/25 oxycodone 5 mg tablet 5 mg PO Q8H PRN pain 3 days #10 tabs 07/22/25 07/22/25 0941 <Electronically signed by Tom north> Date _ Tom Sanchez Signature (if applicable): Date CC: ~ Signed [facility] Work Phone: [phone]) 255-938409-30-2025 Discharge summary Author Mode Christianson [facility] Note Date/Time July 22, 2025 8:41am [facility] Medical Records Department [address] [place] [address] Instructions for Home/Discharge Instructions 07/22/25 0835 MR#: [id number] Acct: [id number] Name: SONIA SZYMANSKI Rep #:[id number] : 1995 30 From: Mode briceño MD PCP: Dr. Isaias Bradley MD Status:ADM I N Discharge Instructions DC O2, CPAP, BIPAP needs Home O2 Discharge instructions: No Dressing / Incision Discharge Activity: Return to Normal Activity Dressing / Incision Call your doctor if you observe: Fever of 101 or Higher, Shortness of breath, Dizziness, Fainting spells, Swelling in the ankles, Chest pain and Increased palpitations (irregular heartbeat) Follow Up Care Test Results: Test results from this visit will be discussed in further detail at your follow- up appointment, if applicable. Discharge Plan Admission Admit Date/Time: 07/20/25 15:05 Attending Provider: Mode Christianson Primary Care Provider: Isaias Bradley Consulting Providers: Mary Wang Discharge Orders/Prescriptions Prescriptions: New dexamethasone 1.5 mg tablet 1.5 mg PO DAILY Qty: 18 0RF Rx Instructions: Take 3 tablets daily for 3 days then 2 tablets daily for 3 days then 1 tabletdaily for 3 days then resume your home dosing oxycodone 5 mg tablet 5 mg PO Q8H PRN (Reason: pain) 3 Days Qty: 10 0RF Continued albuterol sulfate [Ventolin HFA] 90 mcg/actuation HFA aerosol inhaler 2 inh INHALATION Q4H PRN (Reason: sob) Patient Comments: Inhale 2 Puffs as instructed every 4 hours as needed. pantoprazole 40 mg tablet,delayed release (DR/EC) 40 mg PO DAILY atorvastatin 10 mg tablet 10 mg PO DAILY Patient Comments: TAKE 1 TABLET BY MOUTH ONCE DAILY levothyroxine 125 mcg tablet 125 mcg PO DAILY Patient Comments: Take 1 tablet by mouth once daily. M=S AND 1.5 ON MONDAY clomipramine 50 mg capsule 100 mg PO BID alprazolam 0.5 mg tablet 0.5 mg PO Q8H PRN (Reason: anxiety) topiramate 25 mg tablet 25 mg PO QHS lurasidone 60 mg tablet 60 mg PO QPM lamotrigine 100 mg tablet 100 mg PO DAILY Jardiance 10 mg tablet 10 mg PO DAILY ondansetron 4 mg tablet,disintegrating 4 mg PO TID PRN (Reason: nausea/vomiting) potassium chloride 10 mEq tablet extended release 10 meq PO BID dexamethasone 0.75 mg tablet 0.75 mg PO Q24H Referrals / Follow Up: Isaias Bradley MD [Primary Care Provider, Medical] - Within 1 Week Disposition Disposition (needs filled in before D/C Order can be placed): Home, Self Care 07/22/25 0841<Electronically signed by Mode Christianson MD>Mode Christianson MD CC: Dr. Mary Wang MD; Dr. Isaias Bradley MD ~ Signed [facility] Work Phone: [phone]) 555-596409-30-2025 Discharge summary [facility] Medical Records Department [address] [place] [address] Discharge Summary 07/22/25 0953 MR#: [id number] Acct: [id number] Name: SONIA SZYMANSKI Rep #:[id number] : 1995 30 From: Mode briceño MD PCP: Dr. Isaias Bradley MD Status:ADM I N Location: [place] [address] Providers Date of Admission: 07/20/25 Primary Care Physician: Dr. Isaias Bradley MD Reason For Visit: ADRENAL CRISIS Diagnosis Discharge Diagnosis (1) Acute adrenal insufficiency: Status: Acute Code(s): E27.40 - Unspecified adrenocortical insufficiency (2) Elevated liver enzymes: Status: Acute Code(s): R74.8 - Abnormal levels of other serum enzymes Medications at Discharge Home Medications albuterol sulfate 90 mcg/actuation aerosol inhaler (Ventolin HFA) 2 inh inhalation Q4H PRN sob 08/09/22 pantoprazole 40 mg tablet,delayed release 40 mg PO DAILY see pcp 02/23/23 atorvastatin 10 mg tablet 10 mg PO DAILY hyperlipidemia 07/24/23 clomipramine 50 mg capsule 100 mg PO BID see pcp 07/24/23 levothyroxine 125 mcg tablet 125 mcg PO DAILY see pcp 07/24/23 alprazolam 0.5 mg tablet 0.5 mg PO Q8H PRN anxiety 02/16/25 empagliflozin 10 mg tablet (Jardiance) 10 mg PO DAILY see pcp 02/16/25 lamotrigine 100 mg tablet 100 mg PO DAILY see pcp 02/16/25 lurasidone 60 mg tablet 60 mg PO QPM see pcp 02/16/25 topiramate 25 mg tablet 25 mg PO QHS migraine 02/16/25 dexamethasone 0.75 mg tablet 0.75 mg PO Q24H 06/16/25 ondansetron 4 mg disintegrating tablet 4 mg PO TID PRN nausea/vomiting 07/20/25 potassium chloride 10 mEq tablet,extended release 10 meq PO BID 07/20/25 dexamethasone 1.5 mg tablet 1.5 mg PO DAILY #18 tabs 07/22/25 oxycodone 5 mg tablet 5 mg PO Q8H PRN pain 3 days #10 tabs 07/22/25 Hospital Course Operations None Procedures None Summary of Care Provided Minutes Spent on Discharge: 33 Hospital Course: Per HPI: SONIA SZYMANSKI, is a 30-year-old female history of Wabasso's disease, GERD, hypothyroidism,depression and anxiety who presented to [facility] ED 07/20/2025 with generalized weakness and myalgias and she was concerned she may be having an Wabasso's flare. Recently evaluated by her mold operator at [facility] and had low cortisol level so they increasedher Decadron to 0.75 mg daily, for the past week she started getting sick with cold-like symptoms and 3 days ago she started with vomiting and diarrhea. She was seen at [facility] yesterday and was given fluids as well as IV steroids and potassium but she is not feeling any better. Also complaining of some facial swelling which is typical for her Wabasso's flare. In the ED temp 98, heart rate 100 and blood pressure 138/85, respiratory rate 16 pulse ox 100% on room air. CBC with a white count of 14 and hemoglobin of 12, CMP with a BUN of 8 and creatinine 0.79, elevated liver function tests with AST of 288, ALT 502, alk phos 177, cortisol 0.12, serum negative, UA ordered but not yet obtained. Given patient's symptoms and low cortisol consistent with Wabasso's flare hospitalist contacted for admission. Patient evaluated at bedside, she reports 1 week ago she had URI-like symptoms withsome cough, congestion, shortness of breath with some intermittent chest pain, nausea and congestion which has significantly improved however on Monday she felt herself started to have symptoms consistent with adrenal crisis. She was feeling weak, achy, tired and she started having significant nausea as well as diarrhea. She had a syncopal episode yesterday when she went from laying on the couch to sitting up that was brief and she went to [place] and was given fluids and potassium and discharged home however she reports she continues to feel worse soshe presented to [facility] ED. Reports her only URI symptom chela little bit congestion still however the rest of her symptoms have resolved, does have headache, diarrhea and nausea but is the same as previous flares, weakness, achiness, fatigue and right upper quadrant abdominal pain. Discussed her elevated liver enzymesand she reports that in the uwm-nqg-snadgas past she had a CT of her abdomen for this right upper quadrant pain and that was when shewas told she has GROSS and no other acute abnormalities were found.Her current pain is the same pain she gets every time she has a flare. Patient notes some increasedurinary frequency without any burning on urination. No fevers, no changes in vision. No rashes, bleeding, bruising. Also notes some swelling in her face which she reports is also consistent with her symptoms when she has acute adrenal insufficiency. Hospital Course: 1. 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 Respiratory panelswere negative though. LFTs were also elevated which is not inconsistent with her past though they were moreelevated than usual. They have significantly improved on the day of discharge and I do recommend that she follow-up with gastroenterology as an outpatient. In the meantime she was placed on stress dose steroids of hydrocortisone 50 mg IV 4 times daily. She is feeling a little bit better despi te having her abdominal pain. She would like to go home today with the steroid taper and the oxycodone that she had been given the last time she was here in the hospital. She expressed understanding of the risk and benefits of going home and would like to go home today. 2. Hypothyroidism, anxiety, depression, GERD are all chronic medical conditionswhich complicate hercare. Her home medications were continued where appropriate Physical Exam Narrative General: Alert, Oriented x3, Cooperative, No apparent distress HEENT: Atraumatic, PERRLA, EOMI, Normocephalic Oral: Moist Mucosa Neck: Supple, No JVD Lungs: Diminished, Normal air movement, No rhonchi, No wheeze, No rales Cardiovascular: Regular rate, Regular Rhythm, Normal S1, Normal S2, No murmurs Abdomen: Soft, TTP RUQ, Non-Distended, No Hepato-splenomegaly Extremities: No edema, Capillary Refill Less than 3 Seconds Skin: No rashes, No breakdown Musculoskeletal: No Tenderness to Palpation of Joints or Extremities Neurological: No focal neurological deficits, Motor Exam 5/5 strength throughout, Sensory exam intact to light touch and pain Psych/Mental Status: Normal Affect, Appropriate Weight / BMI Weight Weight: 194 lb 0.108 oz Body Mass Index (BMI) 32.3 ABG / Lab / Microbiology Data 07/22/25 05:06 07/22/25 05:06 Laboratory: Laboratory Results - last 24 hr 07/22/25 05:06: WBC 12.3 H, RBC 4.41, Hgb 10.7 L, Hct 35.4 L, MCV 80.3 L, MCH 24.3 L, MCHC 30.2 L, RDW Std Deviation 48.9 H, RDW Coeff of Renetta 17.0 H, Plt Count 452 H, MPV 9.5, Immature Gran % (Auto) 1.600 H, Neut % (Auto) 68.9, Lymph % (Auto) 21.8, Freestone % (Auto) 7.5, Eos % (Auto) 0.0, Baso % (Auto)0.2, Absolute Neuts (auto) 8.5 H, Absolute Lymphs (auto) 2.69, Nucleated RBC % 0, Sodium 140, Potassium 4.0, Chloride 103, Carbon Dioxide 23.1, Anion Gap 13, BUN 7, Creatinine 0.72, Estim Creat ClearCalc 122.90, Est GFR (MDRD) Non-Af 115, BUN/Creatinine Ratio 9.1 L, Glucose 109 H, Calcium 8.8, Total Bilirubin 0.21, AST81 H, ALT 346 H, Alkaline Phosphatase 148 H, Total Protein 6.4, Albumin 3.5, Globulin 3.0, Albumin/Globulin Ratio 1.2 Microbiology: Microbiology 07/20/25 16:31 Mucosa - Nasopharyngeal Respiratory Panel (PCR) - Final 07/20/25 14:30 Mucosa - Nose SARS-CoV-2, Influenza & RSV (PCR) - Final D/C Instructions Call your doctor if you observe: Fever of 101 or Higher, Shortness of breath, Dizziness, Fainting spells, Swelling in the ankles, Chest pain and Increased palpitations (irregular heartbeat) DC O2, CPAP, BIPAP Needs Home O2 Discharge instructions: No Meaningful Use Info Meaningful Use Meaningful Use Diagnoses (Choose all that apply): None applicable Discharge Plan Admission Admit Date/Time: 07/20/25 15:05 Attending Provider: Mode Christianson Primary Care Provider: Isaias Bradley Consulting Providers: Mary Wang Discharge Orders/Prescriptions Prescriptions: New dexamethasone 1.5 mg tablet 1.5 mg PO DAILY Qty: 18 0RF Rx Instructions: Take 3 tablets daily for 3 days then 2 tablets daily for 3 days then 1 tabletdaily for 3 days then resume your home dosing oxycodone 5 mg tablet 5 mg PO Q8H PRN (Reason: pain) 3 Days Qty: 10 0RF Continued albuterol sulfate [Ventolin HFA] 90 mcg/actuation HFA aerosol inhaler 2 inh INHALATION Q4H PRN (Reason: sob) Patient Comments: Inhale 2 Puffs as instructed every 4 hours as needed. pantoprazole 40 mg tablet,delayed release (DR/EC) 40 mg PO DAILY atorvastatin 10 mg tablet 10 mg PO DAILY Patient Comments: TAKE 1 TABLET BY MOUTH ONCE DAILY levothyroxine 125 mcg tablet 125 mcg PO DAILY Patient Comments: Take 1 tablet by mouth once daily. M=S AND 1.5 ON MONDAY clomipramine 50 mg capsule 100 mg PO BID alprazolam 0.5 mg tablet 0.5 mg PO Q8H PRN (Reason: anxiety) topiramate 25 mg tablet 25 mg PO QHS lurasidone 60 mg tablet 60 mg PO QPM lamotrigine 100 mg tablet 100 mg PO DAILY Jardiance 10 mg tablet 10 mg PO DAILY ondansetron 4 mg tablet,disintegrating 4 mg PO TID PRN (Reason: nausea/vomiting) potassium chloride 10 mEq tablet extended release 10 meq PO BID dexamethasone 0.75 mg tablet 0.75 mg PO Q24H Referrals / Follow Up: Isaias Bradley MD [Primary Care Provider, Medical] - Within 1 Week Disposition Disposition (needs filled in before D/C Order can be placed): Home, Self Care Charges/Coding Visit Charges Inpatient E&M: 98294 Disch Hosp >30min 07/22/25 1002 Cosigner Signature (if applicable): CC: Dr. Mode Christianson MD; Dr. Isaias Bradley MD~ Signed [facility]09-30-2025 [facility]09-30-2025 Consult note [facility] Medical Records Department [address] [place] [address] Counseling Note - Pharmacy 07/22/25 0940 MR#: [id number] Acct: [id number] Name: SONIA SZYMANSKI Rep #:[id number] : 1995 30 From: Tom Reed PCP: Dr. Isaias Bradley MD Status:ADM I N Y Location: [place] [address] Pharmacy DC Med Rec Counseling Pharmacy Service has performed discharge medication reconciliation and counseling for this patient. The patient's discharge medication list was reviewed for discrepancies and discrepancies were resolved. The patient was counseled on the following discharge medications and changes in medications for homegoing were reviewed. The Reason for Use, instructions for use, and potential side effects were reviewed for all new medications. The patient's questions regarding all of their medications were answered. 1. Dexamethasone taper 2. Oxycodone 5 mg PO Q8H PRN pain The patient was able to verbally demonstrate an understanding of their dischargemedications. Medications at Discharge Home Medications albuterol sulfate 90 mcg/actuation aerosol inhaler (Ventolin HFA) 2 inh inhalation Q4H PRN sob 08/09/22 pantoprazole 40 mg tablet,delayed release 40 mg PO DAILY see pcp 02/23/23 atorvastatin 10 mg tablet 10 mg PO DAILY hyperlipidemia 07/24/23 clomipramine 50 mg capsule 100 mg PO BID see pcp 07/24/23 levothyroxine 125 mcg tablet 125 mcg PO DAILY see pcp 07/24/23 alprazolam 0.5 mg tablet 0.5 mg PO Q8H PRN anxiety 02/16/25 empagliflozin 10 mg tablet (Jardiance) 10 mg PO DAILY see pcp 02/16/25 lamotrigine 100 mg tablet 100 mg PO DAILY see pcp 02/16/25 lurasidone 60 mg tablet 60 mg PO QPM see pcp 02/16/25 topiramate 25 mg tablet 25 mg PO QHS migraine 02/16/25 dexamethasone 0.75 mg tablet 0.75 mg PO Q24H 06/16/25 ondansetron 4 mg disintegrating tablet 4 mg PO TID PRN nausea/vomiting 07/20/25 potassium chloride 10 mEq tablet,extended release 10 meq PO BID 07/20/25 dexamethasone 1.5 mg tablet 1.5 mg PO DAILY #18 tabs 07/22/25 oxycodone 5 mg tablet 5 mg PO Q8H PRN pain 3 days #10 tabs 07/22/25 07/22/25 0941 r> Date _ Tom Sanchez Signature (if applicable): Date CC: ~ Signed [facility]09-30-2025 Discharge summary [facility] Medical Records Department [address] [place] [address] Instructions for Home/Discharge Instructions 07/22/25 0835 MR#: [id number] Acct: [id number] Name: SONIA SZYMANSKI Rep #:[id number] : 1995 30 From: Mode briceño MD PCP: Dr. Isaias Bradley MD Status:ADM I N Discharge Instructions DC O2, CPAP, BIPAP needs Home O2 Discharge instructions: No Dressing / Incision Discharge Activity: Return to Normal Activity Dressing / Incision Call your doctor if you observe: Fever of 101 or Higher, Shortness of breath, Dizziness, Fainting spells, Swelling in the ankles, Chest pain and Increased palpitations (irregular heartbeat) Follow Up Care Test Results: Test results from this visit will be discussed in further detail at your follow- up appointment, if applicable. Discharge Plan Admission Admit Date/Time: 07/20/25 15:05 Attending Provider: Mode Christianson Primary Care Provider: Isaias Bradley Consulting Providers: Mary Wang Discharge Orders/Prescriptions Prescriptions: New dexamethasone 1.5 mg tablet 1.5 mg PO DAILY Qty: 18 0RF Rx Instructions: Take 3 tablets daily for 3 days then 2 tablets daily for 3 days then 1 tabletdaily for 3 days then resume your home dosing oxycodone 5 mg tablet 5 mg PO Q8H PRN (Reason: pain) 3 Days Qty: 10 0RF Continued albuterol sulfate [Ventolin HFA] 90 mcg/actuation HFA aerosol inhaler 2 inh INHALATION Q4H PRN (Reason: sob) Patient Comments: Inhale 2 Puffs as instructed every 4 hours as needed. pantoprazole 40 mg tablet,delayed release (DR/EC) 40 mg PO DAILY atorvastatin 10 mg tablet 10 mg PO DAILY Patient Comments: TAKE 1 TABLET BY MOUTH ONCE DAILY levothyroxine 125 mcg tablet 125 mcg PO DAILY Patient Comments: Take 1 tablet by mouth once daily. M=S AND 1.5 ON MONDAY clomipramine 50 mg capsule 100 mg PO BID alprazolam 0.5 mg tablet 0.5 mg PO Q8H PRN (Reason: anxiety) topiramate 25 mg tablet 25 mg PO QHS lurasidone 60 mg tablet 60 mg PO QPM lamotrigine 100 mg tablet 100 mg PO DAILY Jardiance 10 mg tablet 10 mg PO DAILY ondansetron 4 mg tablet,disintegrating 4 mg PO TID PRN (Reason: nausea/vomiting) potassium chloride 10 mEq tablet extended release 10 meq PO BID dexamethasone 0.75 mg tablet 0.75 mg PO Q24H Referrals / Follow Up: Isaias Bradley MD [Primary Care Provider, Medical] - Within 1 Week Disposition Disposition (needs filled in before D/C Order can be placed): Home, Self Care 07/22/25 0841Mode Christianson MD CC: Dr. Mary Wang MD; Dr. Isaias Bradley MD ~ Signed [facility]09-29-2025 Progress note Author Mode Christianson [facility] Note Date/Time July 21, 2025 9:10am [facility] Medical Records Department [address] [place] [address] Progress Note - Hospitalist 07/21/25906 MR#: [id number] Acct: [id number] Name: SONIA SZYMANSKI Rep #:[id number] : 1995 30 From: Mode briceño MD PCP: Dr. Isaias Bradley MD Status:ADM I N Location: [place] [address] Subjective Subjective Still does not feel back to her baseline and does not feel much improved from admission Objective Data Objective Data Vital Signs: Vital Signs Temp Pulse Resp BP Pulse Ox O2 Del Method 97.6 F L 68 16 113/66 95 Room Air 07/21/25 03:30 07/21/25 03:30 07/21/25 03:30 07/21/25 03:30 07/21/25 03:30 07/21/25 03:30 Oxygen Delivery Method Room Air Weight: 194 lb 0.108 oz Body Mass Index (BMI) 32.3 Intake & Output: Intake and Output for Last 24 Hours 07/20/25 07/21/25 07/22/25 03:59 03:59 03:59 Intake Total 2656.67 / 2656.67 Balance 2656.67 / 2656.67 Lab / Micro Data 07/21/25 05:10 07/21/25 05:10 Labs: Laboratory Results - last 24 hr 07/20/25 13:33: WBC 14.7 H, RBC 4.89, Hgb 12.0, Hct 37.3, MCV 76.3 L, MCH 24.5 L, MCHC 32.2, RDW Std Deviation 45.6 H, RDW Coeff of Renetta 16.8 H, Plt Count 445, MPV 9.1, Immature Gran % (Auto) 2.000 H, Neut % (Auto) 67.9, Lymph % (Auto) 22.7, Freestone % (Auto) 7.2, Eos % (Auto) 0.0, Baso % (Auto) 0.2, Absolute Neuts (auto) 10.0 H, Absolute Lymphs (auto) 3.34, Nucleated RBC % 0, Sodium 137, Potassium 3.5, Chloride 99, Carbon Dioxide 22.5, Anion Gap 16 H, BUN 8, Creatinine 0.79, Estim Creat Clear Calc 112.03, Est GFR (MDRD) Non-Af 102, BUN/Creatinine Ratio 10.0, Glucose 103 H, Calcium 9.5, Total Bilirubin 0.55, DFP850 H, ALT 502 H, Alkaline Phosphatase 177 H, Total Protein 7.4, Albumin 4.1, Globulin 3.3, Albumin/Globulin Ratio 1.2, Serum , Qual NEGATIVE, Cortisol AM Sample 0.12 L 07/20/25 14:45: Urine Color Yellow, Urine Clarity Clear, Urine pH 7.0, Ur Specific [place] 1.010, Urine Protein Negative, Urine Glucose (UA) 1000 H, UrineKetones Negative, Urine Occult Blood 10 H, Urine Nitrite Negative, Urine Bilirubin Negative, Urine Urobilinogen Normal, Ur Leukocyte Esterase Negative, Urine RBC 0-5 SEEN, Urine WBC 0-5 SEEN, Ur Squamous Epith Cells 0-5 SEEN, Urine Bacteria 1+, Urine Mucus 0 SEEN 07/20/25 21:42: POC Glucose 147 H 07/21/25 05:10: WBC 12.9 H, RBC 4.48, Hgb 10.8 L, Hct 35.5 L, MCV 79.2 L, MCH 24.1 L, MCHC 30.4 L D, RDW Std Deviation 48.5 H, RDW Coeff of Renetta 17.0 H, Plt Count 465 H, MPV 9.3, Immature Gran % (Auto) 0.700, Neut % (Auto) 77.0 H, Lymph % (Auto) 15.5 L, Fre[place] % (Auto) 6.7, Eos % (Auto) 0.0, Baso % (Auto) 0.1, Absolute Neuts (auto) 9.9 H, Absolute Lymphs (auto) 1.99, Nucleated RBC % 0, Sodium 141, Potassium 3.9, Chloride 105, Carbon Dioxide 23.5, Anion Gap 12, BUN 7, Creatinine 0.59 L, Estim Creat Clear Calc 149.97, Est GFR (MDRD) Non-Af 123, BUN/Creatinine Ratio 11.4, Glucose 113 H, Calcium 8.6, Total Bilirubin 0.49, MEP207 H, ALT 550 H, Alkaline Phosphatase 180 H, Total Protein 6.7, Albumin 3.7, Globulin 3.0, Albumin/Globulin Ratio 1.3 Micro: Microbiology 07/20/25 16:31 Mucosa - Nasopharyngeal Respiratory Panel (PCR) - Final 07/20/25 14:30 Mucosa - Nose SARS-CoV-2, Influenza & RSV (PCR) - Final Physical Exam Narrative General: Alert, Oriented x3, Cooperative, No apparent distress HEENT: Atraumatic, PERRLA, EOMI, Normocephalic Oral: Moist Mucosa Neck: Supple, No JVD Lungs: Diminished, Normal air movement, No rhonchi, No wheeze, No rales Cardiovascular: Regular rate, Regular Rhythm, Normal S1, Normal S2, No murmurs Abdomen: Soft, TTP RUQ, Non-Distended, No Hepato-splenomegaly Extremities: No edema, Capillary Refill Less than 3 Seconds Skin: No rashes, No breakdown Musculoskeletal: No Tenderness to Palpation of Joints or Extremities Neurological: No focal neurological deficits, Motor Exam 5/5 strength throughout, Sensory exam intact to light touch and pain Psych/Mental Status: Normal Affect, Appropriate Assessment & Plan Assessment/Plan (1) Acute adrenal insufficiency: (2) Elevated liver enzymes: PLAN: Plan 1. 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 Elevated LFTs higher than her normal to be expected in the setting of her Wabasso's and MASH ? Continue with stress dose steroids, if she does start to feel better can plan for discharge on her previous taper ? Continue with IV fluids ? I do recommend outpatient follow-up with gastroenterology for her elevated LFTs ? Respiratory panels are negative will continue supportive care for her nausea and diarrhea 2. Hypothyroidism ? Stable ? Continue with Synthroid 3. Anxiety/depression ? Stable ? Continue with her home medications 4. GERD ? Stable ? Continue with her home medications DVT: SCDs Charges/Coding Visit Charges Inpatient E&M: 90984 Subs Hosp L2 07/21/25909 <Electronically signed by Mode Christianson MD> Cosigner Signature (if applicable): CC: ~ Signed [facility] Work Phone: [phone] Progress note [facility] Medical Records Department [address] [place] [id number] Progress Note - Hospitalist 07/21/25906 MR#: [id number] Acct: [id number] Name: SONIA SZYMANSKI Rep #:[id number] : 1995 30 From: Mode briceño MD PCP: Dr. Isaias Bradley MD Status:ADM I N Location: [place] [address] Subjective Subjective Still does not feel back to her baseline and does not feel much improved from admission Objective Data Objective Data Vital Signs: Vital Signs Temp Pulse Resp BP Pulse Ox O2 Del Method 97.6 F L 68 16 113/66 95 Room Air 07/21/25 03:30 07/21/25 03:30 07/21/25 03:30 07/21/25 03:30 07/21/25 03:30 07/21/25 03:30 Oxygen Delivery Method Room Air Weight: 194 lb 0.108 oz Body Mass Index (BMI) 32.3 Intake & Output: Intake and Output for Last 24 Hours 07/20/25 07/21/25 07/22/25 03:59 03:59 03:59 Intake Total 2656.67 / 2656.67 60 / 60 Balance 2656.67 / 2656.67 60 / 60 Lab / Micro Data 07/21/25 05:10 07/21/25 05:10 Labs: Laboratory Results - last 24 hr 07/20/25 13:33: WBC 14.7 H, RBC 4.89, Hgb 12.0, Hct 37.3, MCV 76.3 L, MCH 24.5 L, MCHC 32.2, RDW Std Deviation 45.6 H, RDW Coeff of Renetta 16.8 H, Plt Count 445, MPV 9.1, Immature Gran % (Auto) 2.000 H,Neut % (Auto) 67.9, Lymph % (Auto) 22.7, Freestone % (Auto) 7.2, Eos % (Auto) 0.0, Baso % (Auto) 0.2, Absolute Neuts (auto) 10.0 H, Absolute Lymphs (auto) 3.34, Nucleated RBC % 0, Sodium 137, Potassium 3.5, Chloride 99, Carbon Dioxide 22.5, Anion Gap 16 H, BUN 8, Creatinine 0.79, Estim Creat Clear Calc 112.03, Est GFR (MDRD) Non-Af 102, BUN/Creatinine Ratio 10.0, Glucose 103 H, Calcium 9.5, Total Bilirubin 0.55, RIJ910 H, ALT 502 H, Alkaline Phosphatase 177 H, Total Protein 7.4, Albumin 4.1, Globulin 3.3, Albumin/Globulin Ratio 1.2, Serum , Qual NEGATIVE, Cortisol AM Sample 0.12 L 07/20/25 14:45: Urine Color Yellow, Urine Clarity Clear, Urine pH 7.0, Ur Specific [place] 1.010, Urine Protein Negative, Urine Glucose (UA) 1000 H, UrineKetones Negative, Urine Occult Blood 10 H, Urine Nitrite Negative, Urine Bilirubin Negative, Urine Urobilinogen Normal, Ur Leukocyte Esterase Negative, Urine RBC 0-5 SEEN, Urine WBC 0-5 SEEN, Ur Squamous Epith Cells 0-5 SEEN, Urine Bacteria 1+, Urine Mucus 0 SEEN 07/20/25 21:42: POC Glucose 147 H 07/21/25 05:10: WBC 12.9 H, RBC 4.48, Hgb 10.8 L, Hct 35.5 L, MCV 79.2 L, MCH 24.1 L, MCHC 30.4 L D, RDW Std Deviation 48.5 H, RDW Coeff of Renetta 17.0 H, Plt Count 465 H, MPV 9.3, Immature Gran % (Auto) 0.700, Neut % (Auto) 77.0 H, Lymph % (Auto) 15.5 L, [place] % (Auto) 6.7, Eos % (Auto) 0.0, Baso % (Auto) 0.1, Absolute Neuts (auto) 9.9 H, Absolute Lymphs (auto) 1.99, Nucleated RBC % 0, Sodium 141, Potassium 3.9, Chloride 105, Carbon Dioxide 23.5, Anion Gap 12, BUN 7, Creatinine 0.59 L, Estim CreatClear Calc 149.97, Est GFR (MDRD) Non-Af 123, BUN/Creatinine Ratio 11.4, Glucose 113 H, Calcium 8.6, Total Bilirubin 0.49, KIE679 H, ALT 550 H, Alkaline Phosphatase 180 H, Total Protein 6.7, Albumin 3.7, Globulin 3.0, Albumin/Globulin Ratio 1.3 Micro: Microbiology 07/20/25 16:31 Mucosa - Nasopharyngeal Respiratory Panel (PCR) - Final 07/20/25 14:30 Mucosa - Nose SARS-CoV-2, Influenza & RSV (PCR) - Final Physical Exam Narrative General: Alert, Oriented x3, Cooperative, No apparent distress HEENT: Atraumatic, PERRLA, EOMI, Normocephalic Oral: Moist Mucosa Neck: Supple, No JVD Lungs: Diminished, Normal air movement, No rhonchi, No wheeze, No rales Cardiovascular: Regular rate, Regular Rhythm, Normal S1, Normal S2, No murmurs Abdomen: Soft, TTP RUQ, Non-Distended, No Hepato-splenomegaly Extremities: No edema, Capillary Refill Less than 3 Seconds Skin: No rashes, No breakdown Musculoskeletal: No Tenderness to Palpation of Joints or Extremities Neurological: No focal neurological deficits, Motor Exam 5/5 strength throughout, Sensory exam intact to light touch and pain Psych/Mental Status: Normal Affect, Appropriate Assessment & Plan Assessment/Plan (1) Acute adrenal insufficiency: (2) Elevated liver enzymes: PLAN: Plan 1. 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 Elevated LFTs higher than her normal to be expected in the setting of her Wabasso's and MASH ? Continue with stress dose steroids, if she does start to feel better can plan for discharge on her previous taper ? Continue with IV fluids ? I do recommend outpatient follow-up with gastroenterology for her elevated LFTs ? Respiratory panels are negative will continue supportive care for her nausea and diarrhea 2. Hypothyroidism ? Stable ? Continue with Synthroid 3. Anxiety/depression ? Stable ? Continue with her home medications 4. GERD ? Stable ? Continue with her home medications DVT: SCDs Charges/Coding Visit Charges Inpatient E&M: 31271 Subs Hosp L2 07/21/25 0910 Cosigner Signature (if applicable): CC: ~ Signed [facility]09-28-2025 History and physical note Author Mary Wang [facility] Note Date/Time July 20, 2025 3:25pm [facility] Medical Records Department [address] [place] [address] H&P Exam - Hospitalist 07/20/25 1504 MR#: [id number] Acct: [id number] Name: SONIA SZYMANSKI Rep #:[id number] : 1995 30 From: Mary Wang MD PCP: Dr. Isaias Bradley MD Status:ADM I N Location: [place] [id number] HPI - General General Date of Admission: 07/20/25 Date of Service: 07/20/25 Chief Complaint: Weakness, fatigue, aches, nausea and diarrhea HPI Narrative SONIA SZYMANSKI, is a 30-year-old female history of Slade's disease, GERD, hypothyroidism, depression and anxiety who presented to [facility] ED 07/20/2025 with generalized weakness and myalgias and she was concerned she may be having an Wabasso's flare. Recently evaluated by her mold operator at [facility] and had low cortisol level so they increasedher Decadron to 0.75 mg daily, for the past week she started getting sick with cold-like symptoms and 3 days ago she started with vomiting and diarrhea. She was seen at [facility] yesterday and was given fluids as well as IV steroids and potassium but she is not feeling any better. Also complaining of some facial swelling which is typical for her Slade's flare. In the ED temp 98, heart rate 100 and blood pressure 138/85, respiratory rate 16 pulse ox 100% on room air. CBC with a white count of 14 and hemoglobin of 12, CMP with a BUN of 8 and creatinine 0.79, elevated liver function tests with AST of 288, ALT 502, alk phos 177, cortisol 0.12, serum negative, UA ordered but not yet obtained. Given patient's symptoms and low cortisol consistent with Slade's flare hospitalist contacted for admission. Patient evaluated at bedside, she reports 1 week ago she had URI-like symptoms with some cough, congestion, shortness of breath with some intermittent chest pain, nausea and congestion which has significantly improved however on Monday she felt herself started to have symptoms consistent with adrenal crisis. She was feeling weak, achy, tired and she started having significant nausea as well as diarrhea. She had a syncopal episode yesterday when she went from laying on the couch to sitting up that was brief and she went to [place] and was given fluids and potassium and discharged home however she reports she continues to feel worse soshe presented to [facility] ED. Reports her only URI symptom chela little bit congestion still however the rest of her symptoms have resolved, does have headache, diarrhea and nausea but is the same as previous flares, weakness, achiness, fatigue and right upper quadrant abdominal pain. Discussed her elevated liver enzymes and she reports that in the [id number] past she had a CT of her abdomen for this right upper quadrant pain and that was when shewas told she has GROSS and no other acute abnormalities were found. Her current pain is the same pain she gets every time she has a flare. Patient notes some increased urinary frequency without any burning on urination. No fevers, no changes in vision. No rashes, bleeding, bruising. Also notes some swelling in her face which she reports is also consistent with her symptoms when she has acute adrenal insufficiency. [facility] Medical History (Updated 07/20/25 @ 14:[address] Herberth Spear, ) Abnormal uterine bleeding (AUB) Acute adrenal insufficiency Addisonian crisis Addisons disease Adenomyosis Anxiety and depression Asthma Cardiology follow-up encounter Chest pain Chronic female pelvic pain Depression Diabetes Difficulty swallowing Dysphagia Easy bruising Endometriosis determined by laparoscopy Former smoker Gastric reflux Gastroparesis GI bleed Graves disease History of diverticulitis History of echocardiogram History of IBS History of left heart catheterization History of steroid therapy History of stress test History of ulceration Irregular heart beat Kidney stones Low iron Migraine Migraines Mild intermittent asthma Restless legs Seizures Shortness of breath on exertion Wears glasses Home Medications ?Medication ?Instructions ?Recorded ?Last Taken ?Type albuterol sulfate 90 mcg/actuation 2 inh inhalation Q4 H PRN sob 08/09/22 Unknown History aerosol inhaler (Ventolin HFA) pantoprazole 40 mg tablet,delayed 40 mg PO DAILY see p cp 02/23/23 07/20/25 History release atorvastatin 10 mg tablet 10 mg PO DAILY hyperlipidemi a 07/24/23 07/19/25 History clomipramine 50 mg capsule 100 mg PO BID see pcp 07/2407/19/25 History levothyroxine 125 mcg tablet 125 mcg PO DAILY see pcp 07/24/23 07/20/25 History alprazolam 0.5 mg tablet 0.5 mg PO Q8H PRN anxiety 07/19/25 History empagliflozin 10 mg tablet 10 mg PO DAILY see pcp 01/2207/19/25 History (Jardiance) lamotrigine 100 mg tablet 100 mg PO DAILY see pcp 01/2207/19/25 History lurasidone 60 mg tablet 60 mg PO QPM see pcp 5 07/19/25 History topiramate 25 mg tablet 25 mg PO QHS migraine 07/19/25 History dexamethasone 0.75 mg tablet 0.75 mg PO Q24H 06/16/25 07/20/25 History ondansetron 4 mg disintegrating 4 mg PO TID PRN nausea /vomiting 07/20/25 07/20/25 History tablet potassium chloride 10 mEq 10 meq PO BID 07/20/25 Unkno wn History tablet,extended release Allergy/AdvReac Type Severity Reaction Status Date / Time acetaminophen (From Excedrin Allergy Anaphylaxis Verified 07/20/25 13:07 Migraine) aspirin (From Excedrin Allergy Anaphylaxis Verified 07/20/25 13:07 Migraine) azithromycin (From Zithromax Allergy Anaphylaxis Verified 07/20/25 13:07 Z-[place]) bacitracin (From Neosporin Allergy Swelling Verified 07/20/25 13:07 ([id number])) bacitracin zinc (From Allergy Swelling Verified 07/20/25 13:07 Neosporin ([id number])) caffeine (From Excedrin Allergy Anaphylaxis Verified 07/20/25 13:07 Migraine) latex Allergy Rash Verified 07/20/25 13:07 neomycin sulfate (From Allergy Swelling Verified 07/20/25 13:07 Neosporin ([id number])) polymyxin B (From Neosporin Allergy Swelling Verified 07/20/25 13:07 ([id number])) Family History Uncle Diabetes Cancer lung Father Diabetes Grandfather CVA (cerebral vascular accident) Cancer lung, unsure additional type Uncle Cancer brain Grandmother Cancer lung and unsure additional type Surgical History History of appendectomy History of section History of cholecystectomy History of laparoscopic-assisted vaginal hysterectomy History of laparoscopy History of left salpingo-oophorectomy History of thyroidectomy History of tubal ligation History of wisdom tooth extraction Hx laparoscopic cholecystectomy Social History (Updated 02/16/25 @ 16:54 by Vesta Lucero) household members: spouse housing: house Smoking Status: Former smoker ROS ROS Narrative General: Denies fever/chills HENT: Some headache, still has some congestion, denies sore throat EYES: Denies changes in vision Resp: Denies cough, denies shortness of breath Cardiac: Denies chest pain GI: Right upper quadrant abdominal pain consistent with her previous pain, significant nausea with poor p.o., frequent diarrhea : Urinary frequency Extremity: Denies swelling in extremities, feels she has some swelling in her face similar to previous MSK: Denies weakness Neuro: Denies any numbness/tingling Heme: Denies any bleeding or bruising Skin: Denies rashes Psychiatric: Patient tearful, concerned she is going to lose her job Vital Signs Vital Signs Vital Signs: 07/20/25 13:06 07/20/25 13:25 Temperature 98.0 F Temperature Source Oral Pulse Rate 100 Respiratory Rate 16 Respiratory Pattern Normal Blood Pressure 138/85 H Blood Pressure Mean 102 Pulse Ox 100 Oxygen Delivery Method Room Air Weight Weight: 88.042 kg Body Mass Index (BMI) 32.3 Physical Exam Narrative General: Alert, oriented, patient tearful HEENT: Atraumatic, normocephalic Eyes: Anicteric, normal conjunctiva, extraocular movements grossly intact Neck: Supple Respiratory: Clear to auscultation bilaterally, normal respiratory effort Cardiovascular: Regular rate and rhythm GI: Tender to palpation right upper quadrant without rebound, guarding, rigidity Extremities: No significant pitting edema Musculoskeletal: Moving all extremities Neuro: No overt focal neurological deficits Skin: No rashes appreciated Psych: Cooperative but is tearful and anxious Results Lab / Micro Data 07/20/25 13:33 07/20/25 13:33 Labs: Laboratory Results - last 24 hr 07/20/25 13:33: WBC 14.7 H, RBC 4.89, Hgb 12.0, Hct 37.3, MCV 76.3 L, MCH 24.5 L, MCHC 32.2, RDW Std Deviation 45.6 H, RDW Coeff of Renetta 16.8 H, Plt Count 445, MPV 9.1, Immature Gran % (Auto) 2.000 H, Neut % (Auto) 67.9, Lymph % (Auto) 22.7, Freestone % (Auto) 7.2, Eos % (Auto) 0.0, Baso % (Auto) 0.2, Absolute Neuts (auto) 10.0 H, Absolute Lymphs (auto) 3.34, Nucleated RBC % 0, Sodium 137, Potassium 3.5, Chloride 99, Carbon Dioxide 22.5, Anion Gap 16 H, BUN 8, Creatinine 0.79, Estim Creat Clear Calc 112.03, Est GFR (MDRD) Non-Af 102, BUN/Creatinine Ratio 10.0, Glucose 103 H, Calcium 9.5, Total Bilirubin 0.55, [id number] H, ALT 502 H, Alkaline Phosphatase 177 H, Total Protein 7.4, Albumin 4.1, Globulin 3.3, Albumin/Globulin Ratio 1.2, Serum , Qual NEGATIVE, Cortisol AM Sample 0.12 L 07/20/25 14:45: Urine Color Yellow, Urine Clarity Clear, Urine pH 7.0, Ur Specific [place] 1.010, Urine Protein Negative, Urine Glucose (UA) 1000 H, UrineKetones Negative, Urine Occult Blood 10 H, Urine Nitrite Negative, Urine Bilirubin Negative, Urine Urobilinogen Normal, Ur Leukocyte Esterase Negative Assessment & Plan Assessment/Plan (1) Acute adrenal insufficiency: (2) Elevated liver enzymes: PLAN: Plan # 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 - Patient has symptoms consistent with all of her previous episodes of acute adrenal insufficiency -Will give hydrocortisone 50 every 6 for stress dose steroids -IV fluids - Seems this may have been precipitated by URI, awaiting COVID/flu/RSV which wasobtained in the ED, will add respiratory panel -Awaiting UA # Elevated liver function tests - AST 288, ALT 502, alk phos 177 -Does report right upper quadrant pain but notes it is the exact same pain she gets with every adrenal crisis with no differences -Reports a CT scan in the [id number] past though she is unsure when that was obtained due to the symptoms and she was told that she has GROSS -Avoid hepatotoxic agents -Repeat CMP in the a.m. -Given symptoms are consistent with all of her previous flares do not certainly think she needs acute reimaging however if pain changes or LFTs worsen will likely need further evaluation - Will hold statin # Nausea and diarrhea -IV fluids, antiemetics, supportive care -Diet as tolerated -Will obtain stool studies, suspect this is due to to #1 however cannot rule outother underlying etiology and feel it is reasonable to obtain the studies #Hypothyroidism -Continue Synthroid #Depression/anxiety -Continue home medications #GERD - Will give PPI IV due to patient's significant nausea and difficulty toleratingp.o. #DVT ppx: SCDs Mary Wang MD Charges/Coding Visit Charges Inpatient E&M: 17820 Init Hosp L2 07/20/25 1525 <Electronically signed by Mary Wang MD> Cosigner Signature (if applicable): CC: Dr. Mary Wang MD; Dr. Isaias Bradley MD~ Signed [facility] Work Phone: [phone]) 528-719109-28-2025 Discharge summary Author Herberth Spear [facility] Note Date/Time July 20, 2025 3:15pm [facility] Medical Records Department [address] [place] [address] Emergency Department Summary 07/20/25 MR#: [id number] Acct: [id number] Name: SONIA SZYMANSKI Rep #:[id number] : 1995 30 From: Herberth Spear DO PCP: Dr. Isaias Bradley MD Status:REG E R Location: ED HPI History of Present Illness Chief Complaint: General Illness Detail of Chief Complaint: Weakness and myalgias Narrative Narrative: Patient presents to the emergency department with complaint of generalized weakness and myalgias. Patient states that she believes she is having an Wabasso flareup. She had recent evaluation by her mold operator at [facility] and had low cortisol levels so they increased her Decadron to 0.75 mg daily. Patient states that she started getting sick a week ago with cold-like symptoms. 3 days ago started with vomiting and diarrhea. She was seen at [facility] yesterday where she had fluids given as well as steroids IVand potassium IV. She is not feeling any better. Patient denies fevers. Patient also complains of some facial swelling which is typical when she has herAddison's flares. [facility] Medical History (Updated 07/20/25 @ 14:[address] Herberth Spear, DO) Depression Kidney stones GI bleed Irregular heart beat Migraines Acute adrenal insufficiency Addisonian crisis Addisons disease Gastroparesis Dysphagia Wears glasses History of steroid therapy Diabetes Low iron Easy bruising Restless legs Seizures Difficulty swallowing History of ulceration History of IBS History of diverticulitis Gastric reflux Former smoker Asthma Shortness of breath on exertion Cardiology follow-up encounter History of echocardiogram History of stress test Chest pain History of left heart catheterization Anxiety and depression Graves disease Abnormal uterine bleeding (AUB) Endometriosis determined by laparoscopy Adenomyosis Chronic female pelvic pain Migraine Mild intermittent asthma Home Medications ?Medication ?Instructions ?Recorded ?Last Taken ?Type albuterol sulfate 90 mcg/actuation 2 inh inhalation Q4 H PRN sob 08/09/22 Unknown History aerosol inhaler (Ventolin HFA) pantoprazole 40 mg tablet,delayed 40 mg PO DAILY see p cp 02/23/23 07/20/25 History release atorvastatin 10 mg tablet 10 mg PO DAILY hyperlipidemi a 07/24/23 07/19/25 History clomipramine 50 mg capsule 100 mg PO BID see pcp 07/2407/19/25 History levothyroxine 125 mcg tablet 125 mcg PO DAILY see pcp 07/24/23 07/20/25 History alprazolam 0.5 mg tablet 0.5 mg PO Q8H PRN anxiety 07/19/25 History empagliflozin 10 mg tablet 10 mg PO DAILY see pcp 01/2207/19/25 History (Jardiance) lamotrigine 100 mg tablet 100 mg PO DAILY see pcp 01/2207/19/25 History lurasidone 60 mg tablet 60 mg PO QPM see pcp 5 07/19/25 History topiramate 25 mg tablet 25 mg PO QHS migraine 07/19/25 History dexamethasone 0.75 mg tablet 0.75 mg PO Q24H 06/16/25 07/20/25 History ondansetron 4 mg disintegrating 4 mg PO TID PRN nausea /vomiting 07/20/25 07/20/25 History tablet potassium chloride 10 mEq 10 meq PO BID 07/20/25 Unkno wn History tablet,extended release Allergy/AdvReac Type Severity Reaction Status Date / Time acetaminophen (From Excedrin Allergy Anaphylaxis Verified 07/20/25 13:07 Migraine) aspirin (From Excedrin Allergy Anaphylaxis Verified 07/20/25 13:07 Migraine) azithromycin (From Zithromax Allergy Anaphylaxis Verified 07/20/25 13:07 Z-Trin[place]) bacitracin (From Neosporin Allergy Swelling Verified 07/20/25 13:07 ([id number]-[id number])) bacitracin zinc (From Allergy Swelling Verified 07/20/25 13:07 Neosporin (dhl-sui-[id number])) caffeine (From Excedrin Allergy Anaphylaxis Verified 07/20/25 13:07 Migraine) latex Allergy Rash Verified 07/20/25 13:07 neomycin sulfate (From Allergy Swelling Verified 07/20/25 13:07 Neosporin (fun-tye-zuntf)) polymyxin B (From Neosporin Allergy Swelling Verified 07/20/25 13:07 (icq-sul-ahnvw)) Family History Uncle Diabetes Cancer lung Father Diabetes Grandfather CVA (cerebral vascular accident) Cancer lung, unsure additional type Uncle Cancer brain Grandmother Cancer lung and unsure additional type Surgical History History of cholecystectomy History of appendectomy Hx laparoscopic cholecystectomy History of left salpingo-oophorectomy History of tubal ligation History of laparoscopic-assisted vaginal hysterectomy History of laparoscopy History of wisdom tooth extraction History of thyroidectomy History of section Social History (Updated 02/16/25 @ 16:54 by Vesta Lucero) household members: spouse housing: house Smoking Status: Former smoker ROS ROS ED Review of Systems ROS Unobtainable: other Constitutional Constitutional ED: Reports lethargy; Denies chills, fever(s), sweats or weight loss Eyes Eyes: Denies blurry vision, change in vision or diplopia ENT ENT ED: Denies rhinorrhea or sore throat Cardiovascular Cardiovascular: Denies chest pain, orthopnea or racing heartbeat Respiratory/Chest Respiratory/Chest: Reports dyspnea on exertion; Denies cough, dyspnea, orthopneaor sputum Gastrointestinal Gastrointestinal: Reports diarrhea, nausea and vomiting; Denies abdominal pain Genitourinary Genitourinary ED: Denies dysuria, hematuria or urinary frequency Musculoskeletal Musculoskeletal: Reports myalgias; Denies arthralgias, back pain or neck pain Integumentary Denies abscess, Abrasions or rash Neurologic Neurologic: Reports headache(s) and weakness Psychiatric Psychiatric: Denies anxiety, depression or suicidal thoughts Endocrine Endocrinology: Denies polydipsia, polyphagia or polyuria Hematologic/Lymphatic Hematologic/Lymphatic: Denies easy bleeding, easy bruising or lymphadenopathy Allergic/Immunologic Allergic/Immunologic ED: Denies mouth swelling, tongue swelling or urticaria EXAM Physical Exam Const Vital Signs: 07/20/25 13:06 07/20/25 13:25 Temperature 98.0 F Temperature Source Oral Pulse Rate 100 Respiratory Rate 16 Respiratory Pattern Normal Blood Pressure 138/85 H Blood Pressure Mean 102 Pulse Ox 100 Oxygen Delivery Method Room Air Positive well nourished and well developed General Appearance ED: well developed and NAD HEENT Reports TM's clear and moist mucous membranes normocephalic and atraumatic; Negative for trauma or tenderness Tympanic Membrane ED: Yes TM's clear Eyes PERRL and EOMs intact bilaterally General Eye ED: Negative for pale conjunctiva or scleral icterus Neck no lymphadenopathy, supple and no JVD General: Negative for tenderness Chest Wall inspection of chest normal and palpation of chest normal Chest: Negative for tenderness Resp normal respiratory effort and clear to auscultation bilaterally Effort and Inspection: Negative for respiratory distress or pain with movement Auscultation: Negative for rhonchi, wheezes or diminished lung sounds Cardio regular rate, regular rhythm, S1 normal heart sound, S2 normal heart sound and no murmurs Peripheral Pulses: pulses 2+ throughout GI normal to inspection, nondistended, normoactive bowel sounds, soft to palpation,non-tender, non-distended and no masses Back/Spine no CVA tenderness and no thoracic nor lumbar tenderness Extremity normal to inspection General Extremety ED: Negative for edema General Extremity: Negative for edema Neuro oriented x3, CN's II-XII intact bilaterally, no sensory deficits noted and gait normal Sensorium / Orientation: awake, alert, oriented to person, oriented to place andoriented to time Motor Exam: strength 5/5 throughout and strength abnormal Psych mental status grossly normal Skin no rashes or lesions noted and no wounds MDM MDM MDM Narrative Medical decision making narrative: Patient presents with concern for Wabasso's crisis. History of same in the past. Seen at emergency department in [place] yesterday and continues to complain of not feeling well. Recent URI symptoms and also recent vomiting and diarrhea. IV line established. She was given normal saline fluid bolus. CBC with differential obtained showed an elevated white count of 14.7 which may be related to recent increase in her steroids. Hemoglobin was 12 and platelet count 445. Chemistries unremarkable. AST and ALT elevated with an AST of 288 and ALT of 502. Alk phos was 177. Serum hCG was negative. Cortisol was 0.12. Patient case discussed with hospitalist. Results discussed with patient and shechristines me she recently had diagnosis of GROSS. Suspect she may have adrenal insufficiency as well as recent viral infection potentially. Her abdominal examdoes reveal some tenderness over the right upper quadrant but the abdomen is soft and appears benign. Lab Data Attestation: I reviewed the patient's lab results. Labs: Laboratory Results - last 24 hr 07/20/25 13:33 WBC 14.7 H RBC 4.89 Hgb 12.0 Hct 37.3 MCV 76.3 L MCH 24.5 L MCHC 32.2 RDW Std Deviation 45.6 H RDW Coeff of Renetta 16.8 H Plt Count 445 MPV 9.1 Immature Gran % (Auto) 2.000 H Neut % (Auto) 67.9 Lymph % (Auto) 22.7 Fre[place] % (Auto) 7.2 Eos % (Auto) 0.0 Baso % (Auto) 0.2 Absolute Neuts (auto) 10.0 H Absolute Lymphs (auto) 3.34 Nucleated RBC % 0 Sodium 137 Potassium 3.5 Chloride 99 Carbon Dioxide 22.5 Anion Gap 16 H BUN 8 Creatinine 0.79 Estim Creat Clear Calc 112.03 Est GFR (MDRD) Non-Af 102 BUN/Creatinine Ratio 10.0 Glucose 103 H Calcium 9.5 Total Bilirubin 0.55 AST 288 H ALT 502 H Alkaline Phosphatase 177 H Total Protein 7.4 Albumin 4.1 Globulin 3.3 Albumin/Globulin Ratio 1.2 Serum , Qual NEGATIVE Cortisol AM Sample 0.12 L Discharge Plan Dx/Rx/DC Orders Clinical Impression: Acute adrenal insufficiency, Weakness, Myalgia, Elevated liver enzymes Disposition Disposition: Acute Care Hospital [facility] What to do if you have Problems For any increased pain, shortness of breath, bleeding, nausea or vomiting, chestpain, or any unexpected problems, contact your Primary Care Provider. Call [facility] ([phone]) or report to the closest Emergency Room. Call 911 if necessary. 07/20/25 1515 <Electronically signed by Herberth Spear DO> Cosigner Signature (if applicable): CC: Dr. Isaias Bradley MD ~ Signed [facility] Work Phone: 1(281) 339-883709-28-2025 History and physical note [facility] Medical Records Department [address] [place] [id number] H&P Exam - Hospitalist 07/20/25 1504 MR#: [id number] Acct: [id number] Name: SONIA SZYMANSKI Rep #:[id number] : 1995 30 From: Mary Wang MD PCP: Dr. Isaias Bradley MD Status:ADM I N Location: [place] [address] HPI - General General Date of Admission: 07/20/25 Date of Service: 07/20/25 Chief Complaint: Weakness, fatigue, aches, nausea and diarrhea HPI Narrative SONIA SZYMANSKI, is a 30-year-old female history of Wabasso's disease, GERD, hypothyroidism, depression and anxiety who presented to [facility] ED 07/20/2025 with generalized weakness and myalgias and she was concerned she may be having an Slade's flare. Recently evaluated by her endo crinologist at [facility] and had low cortisol level so they increasedher Decadron to 0.75 mgdaily, for the past week she started getting sick with cold- like symptoms and 3 days ago she started with vomiting and diarrhea. She was seen at [facility] yesterday and was given fluids aswell as IV steroids and potassium but she is not feeling any better. Also complaining of some facial swelling which is typical for her Wabasso's flare. In the ED temp 98, heart rate 100 and blood pressure 138/85, respiratory rate 16 pulse ox 100% on room air. CBC with a white count of 14 and hemoglobin of 12, CMP with a BUN of 8 and creatinine 0.79, elevated liver function tests with AST of 288, ALT 502, alk phos 177, cortisol 0.12, serum negative, UA ordered but not yet obtained. Given patient's symptoms and low cortisol consistent with Wabasso's flare hospitalist contacted for admission. Patient evaluated at bedside, she reports 1 week ago she had URI-like symptoms with some cough, congestion, shortness of breath with some intermittent chest pain, nausea and congestion which has significantly improved however on Monday she felt herself started to have symptoms consistent with adrenal crisis. She was feeling weak, achy, tired and she started having significant nausea as well as diarrhea. She had a syncopal episode yesterday when she went from laying on the couch to sitting up that was brief and she went to [place] and was given fluids and potassium and discharged home however she reports she continues to feel worse soshe presented to [facility] ED.Reports her only URI symptom chela little bit congestion still however the rest of her symptoms have resolved, does have headache, diarrhea and nausea but is the same as previous flares, weakness, achiness, fatigue and right upper quadrant abdominal pain. Discussed her elevated liver enzymes and she reports that in the [id number]-[id number] past she had a CT of her abdomen for this right upper quadrant pain and that was when shewas told she has GROSS and no other acute abnormalities were found. Her curre nt pain is the same pain she gets every time she has a flare. Patient notes some increased urinary frequency without any burning on urination. No fevers, no changes in vision. No rashes, bleeding, bruising. Also notes some swelling in her face which she reports is also consistent with her symptoms when she has acute adrenal insufficiency. [facility] Medical History (Updated 07/20/25 @ 14:[address] Herberth Spear, ) Abnormal uterine bleeding (AUB) Acute adrenal insufficiency Addisonian crisis Addisons disease Adenomyosis Anxiety and depression Asthma Cardiology follow-up encounter Chest pain Chronic female pelvic pain Depression Diabetes Difficulty swallowing Dysphagia Easy bruising Endometriosis determined by laparoscopy Former smoker Gastric reflux Gastroparesis GI bleed Graves disease History of diverticulitis History of echocardiogram History of IBS History of left heart catheterization History of steroid therapy History of stress test History of ulceration Irregular heart beat Kidney stones Low iron Migraine Migraines Mild intermittent asthma Restless legs Seizures Shortness of breath on exertion Wears glasses Home Medications ?Medication ?Instructions ?Recorded ?Last Taken ?Type albuterol sulfate 90 mcg/actuation 2 inh inhalation Q4 H PRN sob 08/09/22 Unknown History aerosol inhaler (Ventolin HFA) pantoprazole 40 mg tablet,delayed 40 mg PO DAILY see p cp 02/23/23 07/20/25 History release atorvastatin 10 mg tablet 10 mg PO DAILY hyperlipidemi a 07/24/23 07/19/25 History clomipramine 50 mg capsule 100 mg PO BID see pcp 07/2407/19/25 History levothyroxine 125 mcg tablet 125 mcg PO DAILY see pcp 07/24/23 07/20/25 History alprazolam 0.5 mg tablet 0.5 mg PO Q8H PRN anxiety 07/19/25 History empagliflozin 10 mg tablet 10 mg PO DAILY see pcp 01/2207/19/25 History (Jardiance) lamotrigine 100 mg tablet 100 mg PO DAILY see pcp 01/2207/19/25 History lurasidone 60 mg tablet 60 mg PO QPM see pcp 5 07/19/25 History topiramate 25 mg tablet 25 mg PO QHS migraine 07/19/25 History dexamethasone 0.75 mg tablet 0.75 mg PO Q24H 06/16/25 07/20/25 History ondansetron 4 mg disintegrating 4 mg PO TID PRN nausea /vomiting 07/20/25 07/20/25 History tablet potassium chloride 10 mEq 10 meq PO BID 07/20/25 Unkno wn History tablet,extended release Allergy/AdvReac Type Severity Reaction Status Date / Time acetaminophen (From Excedrin Allergy Anaphylaxis Verified 07/20/25 13:07 Migraine) aspirin (From Excedrin Allergy Anaphylaxis Verified 07/20/25 13:07 Migraine) azithromycin (From Zithromax Allergy Anaphylaxis Verified 07/20/25 13:07 Z-[place]) bacitracin (From Neosporin Allergy Swelling Verified 07/20/25 13:07 (vsh-jtt-tizis)) bacitracin zinc (From Allergy Swelling Verified 07/20/25 13:07 Neosporin (oqk-utz-opmup)) caffeine (From Excedrin Allergy Anaphylaxis Verified 07/20/25 13:07 Migraine) latex Allergy Rash Verified 07/20/25 13:07 neomycin sulfate (From Allergy Swelling Verified 07/20/25 13:07 Neosporin (zwa-ldk-vcuar)) polymyxin B (From Neosporin Allergy Swelling Verified 07/20/25 13:07 ([id number]-[id number])) Family History Uncle Diabetes Cancer lung Father Diabetes Grandfather CVA (cerebral vascular accident) Cancer lung, unsure additional type Uncle Cancer brain Grandmother Cancer lung and unsure additional type Surgical History History of appendectomy History of section History of cholecystectomy History of laparoscopic-assisted vaginal hysterectomy History of laparoscopy History of left salpingo-oophorectomy History of thyroidectomy History of tubal ligation History of wisdom tooth extraction Hx laparoscopic cholecystectomy Social History (Updated 02/16/25 @ 16:54 by Vesta Lucero) household members: spouse housing: house Smoking Status: Former smoker ROS ROS Narrative General: Denies fever/chills HENT: Some headache, still has some congestion, denies sore throat EYES: Denies changes in vision Resp: Denies cough, denies shortness of breath Cardiac: Denies chest pain GI: Right upper quadrant abdominal pain consistent with her previous pain, significant nausea with poor p.o., frequent diarrhea : Urinary frequency Extremity: Denies swelling in extremities, feels she has some swelling in her face similar to previous MSK: Denies weakness Neuro: Denies any numbness/tingling Heme: Denies any bleeding or bruising Skin: Denies rashes Psychiatric: Patient tearful, concerned she is going to lose her job Vital Signs Vital Signs Vital Signs: 07/20/25 13:06 07/20/25 13:25 Temperature 98.0 F Temperature Source Oral Pulse Rate 100 Respiratory Rate 16 Respiratory Pattern Normal Blood Pressure 138/85 H Blood Pressure Mean 102 Pulse Ox 100 Oxygen Delivery Method Room Air Weight Weight: 88.042 kg Body Mass Index (BMI) 32.3 Physical Exam Narrative General: Alert, oriented, patient tearful HEENT: Atraumatic, normocephalic Eyes: Anicteric, normal conjunctiva, extraocular movements grossly intact Neck: Supple Respiratory: Clear to auscultation bilaterally, normal respiratory effort Cardiovascular: Regular rate and rhythm GI: Tender to palpation right upper quadrant without rebound, guarding, rigidity Extremities: No significant pitting edema Musculoskeletal: Moving all extremities Neuro: No overt focal neurological deficits Skin: No rashes appreciated Psych: Cooperative but is tearful and anxious Results Lab / Micro Data 07/20/25 13:33 07/20/25 13:33 Labs: Laboratory Results - last 24 hr 07/20/25 13:33: WBC 14.7 H, RBC 4.89, Hgb 12.0, Hct 37.3, MCV 76.3 L, MCH 24.5 L, MCHC 32.2, RDW Std Deviation 45.6 H, RDW Coeff of Renetta 16.8 H, Plt Count 445, MPV 9.1, Immature Gran % (Auto) 2.000 H,Neut % (Auto) 67.9, Lymph % (Auto) 22.7, [place] % (Auto) 7.2, Eos % (Auto) 0.0, Baso % (Auto) 0.2, Absolute Neuts (auto) 10.0 H, Absolute Lymphs (auto) 3.34, Nucleated RBC % 0, Sodium 137, Potassium 3.5, Chloride 99, Carbon Dioxide 22.5, Anion Gap 16 H, BUN 8, Creatinine 0.79, Estim Creat Clear Calc 112.03, Est GFR (MDRD) Non-Af 102, BUN/Creatinine Ratio 10.0, Glucose 103 H, Calcium 9.5, Total Bilirubin 0.55, [id number] H, ALT 502 H, Alkaline Phosphatase 177 H, Total Protein 7.4, Albumin 4.1, Globulin 3.3, Albumin/Globulin Ratio 1.2, Serum , Qual NEGATIVE, Cortisol AM Sample 0.12 L 07/20/25 14:45: Urine Color Yellow, Urine Clarity Clear, Urine pH 7.0, Ur Specific [place] 1.010, Urine Protein Negative, Urine Glucose (UA) 1000 H, UrineKetones Negative, Urine Occult Blood 10 H, Urine Nitrite Negative, Urine Bilirubin Negative, Urine Urobilinogen Normal, Ur Leukocyte Esterase Negative Assessment & Plan Assessment/Plan (1) Acute adrenal insufficiency: (2) Elevated liver enzymes: PLAN: Plan # 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 - Patient has symptoms consistent with all of her previous episodes of acute adrenal insufficiency -Will give hydrocortisone 50 every 6 for stress dose steroids -IV fluids - Seems this may have been precipitated by URI, awaiting COVID/flu/RSV which wasobtained in the ED,will add respiratory panel -Awaiting UA # Elevated liver function tests - AST 288, ALT 502, alk phos 177 -Does report right upper quadrant pain but notes it is the exact same pain she gets with every adrenal crisis with no differences -Reports a CT scan in the bed-wod-sjjqqru past though she is unsure when that was obtained due to the symptoms and she was told that she has GROSS -Avoid hepatotoxic agents -Repeat CMP in the a.m. -Given symptoms are consistent with all of her previous flares do not certainly think she needs acute reimaging however if pain changes or LFTs worsen will likely need further evaluation - Will hold statin # Nausea and diarrhea -IV fluids, antiemetics, supportive care -Diet as tolerated -Will obtain stool studies, suspect this is due to to #1 however cannot rule outother underlying etiology and feel it is reasonable to obtain the studies #Hypothyroidism -Continue Synthroid #Depression/anxiety -Continue home medications #GERD - Will give PPI IV due to patient's significant nausea and difficulty toleratingp.o. #DVT ppx: SCDs Mary Wang MD Charges/Coding Visit Charges Inpatient E&M: 38991 Init Hosp L2 07/20/25 1525 Cosigner Signature (if applicable): CC: Dr. Mary Wang MD; Dr. Isaias Bradley MD~ Signed [facility]09-28-2025 Discharge summary [facility] Medical Records Department [address] [place] [address] Emergency Department Summary 07/20/25 MR#: [id number] Acct: [id number] Name: SONIA SZYMANSKI Rep #:[id number] : 1995 30 From: Herberth Spear DO PCP: Dr. Isaias Bradley MD Status:REG E R Location: ED HPI History of Present Illness Chief Complaint: General Illness Detail of Chief Complaint: Weakness and myalgias Narrative Narrative: Patient presents to the emergency department with complaint of generalized weakness and myalgias. Patient states that she believes she is having an Slade flareup. She had recent evaluation by her mold operator at [facility] and had low cortisol levels so they increased her Decadron to 0.75 mg daily. Patient states that she started getting sick a week ago with cold-like symptoms. 3 days ago started with vomiting and diarrhea. She was seen at [facility] yesterday where she hadfluids given as well as steroids IVand potassium IV. She is not feeling any better. Patient denies fevers. Patient also complains of some facial swelling which is typical when she has herAddison's flares. [facility] Medical History (Updated 07/20/25 @ 14:[address] Herberth Spear, DO) Depression Kidney stones GI bleed Irregular heart beat Migraines Acute adrenal insufficiency Addisonian crisis Addisons disease Gastroparesis Dysphagia Wears glasses History of steroid therapy Diabetes Low iron Easy bruising Restless legs Seizures Difficulty swallowing History of ulceration History of IBS History of diverticulitis Gastric reflux Former smoker Asthma Shortness of breath on exertion Cardiology follow-up encounter History of echocardiogram History of stress test Chest pain History of left heart catheterization Anxiety and depression Graves disease Abnormal uterine bleeding (AUB) Endometriosis determined by laparoscopy Adenomyosis Chronic female pelvic pain Migraine Mild intermittent asthma Home Medications ?Medication ?Instructions ?Recorded ?Last Taken ?Type albuterol sulfate 90 mcg/actuation 2 inh inhalation Q4 H PRN sob 08/09/22 Unknown History aerosol inhaler (Ventolin HFA) pantoprazole 40 mg tablet,delayed 40 mg PO DAILY see p cp 02/23/23 07/20/25 History release atorvastatin 10 mg tablet 10 mg PO DAILY hyperlipidemi a 07/24/23 07/19/25 History clomipramine 50 mg capsule 100 mg PO BID see pcp 07/2407/19/25 History levothyroxine 125 mcg tablet 125 mcg PO DAILY see pcp 07/24/23 07/20/25 History alprazolam 0.5 mg tablet 0.5 mg PO Q8H PRN anxiety 07/19/25 History empagliflozin 10 mg tablet 10 mg PO DAILY see pcp 01/2207/19/25 History (Jardiance) lamotrigine 100 mg tablet 100 mg PO DAILY see pcp 01/2207/19/25 History lurasidone 60 mg tablet 60 mg PO QPM see pcp 5 07/19/25 History topiramate 25 mg tablet 25 mg PO QHS migraine 07/19/25 History dexamethasone 0.75 mg tablet 0.75 mg PO Q24H 06/16/25 07/20/25 History ondansetron 4 mg disintegrating 4 mg PO TID PRN nausea /vomiting 07/20/25 07/20/25 History tablet potassium chloride 10 mEq 10 meq PO BID 07/20/25 Unkno wn History tablet,extended release Allergy/AdvReac Type Severity Reaction Status Date / Time acetaminophen (From Excedrin Allergy Anaphylaxis Verified 07/20/25 13:07 Migraine) aspirin (From Excedrin Allergy Anaphylaxis Verified 07/20/25 13:07 Migraine) azithromycin (From Zithromax Allergy Anaphylaxis Verified 07/20/25 13:07 Z-Trinidad) bacitracin (From Neosporin Allergy Swelling Verified 07/20/25 13:07 ([id number])) bacitracin zinc (From Allergy Swelling Verified 07/20/25 13:07 Neosporin ([id number]-izn-[id number])) caffeine (From Excedrin Allergy Anaphylaxis Verified 07/20/25 13:07 Migraine) latex Allergy Rash Verified 07/20/25 13:07 neomycin sulfate (From Allergy Swelling Verified 07/20/25 13:07 Neosporin (tok-[id number])) polymyxin B (From Neosporin Allergy Swelling Verified 07/20/25 13:07 (fie-fsb-pireq)) Family History Uncle Diabetes Cancer lung Father Diabetes Grandfather CVA (cerebral vascular accident) Cancer lung, unsure additional type Uncle Cancer brain Grandmother Cancer lung and unsure additional type Surgical History History of cholecystectomy History of appendectomy Hx laparoscopic cholecystectomy History of left salpingo-oophorectomy History of tubal ligation History of laparoscopic-assisted vaginal hysterectomy History of laparoscopy History of wisdom tooth extraction History of thyroidectomy History of section Social History (Updated 02/16/25 @ 16:54 by Vesta Lucero) household members: spouse housing: house Smoking Status: Former smoker ROS ROS ED Review of Systems ROS Unobtainable: other Constitutional Constitutional ED: Reports lethargy; Denies chills, fever(s), sweats or weight loss Eyes Eyes: Denies blurry vision, change in vision or diplopia ENT ENT ED: Denies rhinorrhea or sore throat Cardiovascular Cardiovascular: Denies chest pain, orthopnea or racing heartbeat Respiratory/Chest Respiratory/Chest: Reports dyspnea on exertion; Denies cough, dyspnea, orthopneaor sputum Gastrointestinal Gastrointestinal: Reports diarrhea, nausea and vomiting; Denies abdominal pain Genitourinary Genitourinary ED: Denies dysuria, hematuria or urinary frequency Musculoskeletal Musculoskeletal: Reports myalgias; Denies arthralgias, back pain or neck pain Integumentary Denies abscess, Abrasions or rash Neurologic Neurologic: Reports headache(s) and weakness Psychiatric Psychiatric: Denies anxiety, depression or suicidal thoughts Endocrine Endocrinology: Denies polydipsia, polyphagia or polyuria Hematologic/Lymphatic Hematologic/Lymphatic: Denies easy bleeding, easy bruising or lymphadenopathy Allergic/Immunologic Allergic/Immunologic ED: Denies mouth swelling, tongue swelling or urticaria EXAM Physical Exam Const Vital Signs: 07/20/25 13:06 07/20/25 13:25 Temperature 98.0 F Temperature Source Oral Pulse Rate 100 Respiratory Rate 16 Respiratory Pattern Normal Blood Pressure 138/85 H Blood Pressure Mean 102 Pulse Ox 100 Oxygen Delivery Method Room Air Positive well nourished and well developed General Appearance ED: well developed and NAD HEENT Reports TM's clear and moist mucous membranes normocephalic and atraumatic; Negative for trauma or tenderness Tympanic Membrane ED: Yes TM's clear Eyes PERRL and EOMs intact bilaterally General Eye ED: Negative for pale conjunctiva or scleral icterus Neck no lymphadenopathy, supple and no JVD General: Negative for tenderness Chest Wall inspection of chest normal and palpation of chest normal Chest: Negative for tenderness Resp normal respiratory effort and clear to auscultation bilaterally Effort and Inspection: Negative for respiratory distress or pain with movement Auscultation: Negative for rhonchi, wheezes or diminished lung sounds Cardio regular rate, regular rhythm, S1 normal heart sound, S2 normal heart sound and no murmurs Peripheral Pulses: pulses 2+ throughout GI normal to inspection, nondistended, normoactive bowel sounds, soft to palpation,non-tender, non-distended and no masses Back/Spine no CVA tenderness and no thoracic nor lumbar tenderness Extremity normal to inspection General Extremety ED: Negative for edema General Extremity: Negative for edema Neuro oriented x3, CN's II-XII intact bilaterally, no sensory deficits noted and gait normal Sensorium / Orientation: awake, alert, oriented to person, oriented to place andoriented to time Motor Exam: strength 5/5 throughout and strength abnormal Psych mental status grossly normal Skin no rashes or lesions noted and no wounds MDM MDM MDM Narrative Medical decision making narrative: 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 Seen at emergency department in [place] yesterday and continues to complain of not feeling well. Recent URI symptoms and also recent vomiting and diarrhea. IV line established. She was given normal saline fluid bolus. CBC with differential obtained showed an elevated white count of 14.7 which may be related to recent increase in her steroids. Hemoglobin was 12 and platelet count 445. Chemistries unremarkable. AST and ALT elevated with an AST of 288 and ALT of 502. Alk phos was 177. Serum hCG was negative. Cortisol was 0.12. Patient case discussed with hospitalist. Results discussed with patient and sheteclaree she recently had diagnosis of GROSS. Suspect she may have adrenal insufficiency as well as recentviral infection potentially. Her abdominal examdoes reveal some tenderness over the right upper quadrant but the abdomen is soft and appears benign. Lab Data Attestation: I reviewed the patient's lab results. Labs: Laboratory Results - last 24 hr 07/20/25 13:33 WBC 14.7 H RBC 4.89 Hgb 12.0 Hct 37.3 MCV 76.3 L MCH 24.5 L MCHC 32.2 RDW Std Deviation 45.6 H RDW Coeff of Renetta 16.8 H Plt Count 445 MPV 9.1 Immature Gran % (Auto) 2.000 H Neut % (Auto) 67.9 Lymph % (Auto) 22.7 Freestone % (Auto) 7.2 Eos % (Auto) 0.0 Baso % (Auto) 0.2 Absolute Neuts (auto) 10.0 H Absolute Lymphs (auto) 3.34 Nucleated RBC % 0 Sodium 137 Potassium 3.5 Chloride 99 Carbon Dioxide 22.5 Anion Gap 16 H BUN 8 Creatinine 0.79 Estim Creat Clear Calc 112.03 Est GFR (MDRD) Non-Af 102 BUN/Creatinine Ratio 10.0 Glucose 103 H Calcium 9.5 Total Bilirubin 0.55 AST 288 H ALT 502 H Alkaline Phosphatase 177 H Total Protein 7.4 Albumin 4.1 Globulin 3.3 Albumin/Globulin Ratio 1.2 Serum , Qual NEGATIVE Cortisol AM Sample 0.12 L Discharge Plan Dx/Rx/DC Orders Clinical Impression: Acute adrenal insufficiency, Weakness, Myalgia, Elevated liver enzymes Disposition Disposition: Acute Care Hospital [facility] What to do if you have Problems For any increased pain, shortness of breath, bleeding, nausea or vomiting, chestpain, or any unexpected problems, contact your Primary Care Provider. Call [facility] ([phone]) or report tothe closest Emergency Room. Call 911 if necessary. 07/20/25 1515 Cosigner Signature (if applicable): CC: Dr. Isaias Bradley MD ~ Signed [facility]08-26-20[facility] Consult note Author Polly Torrez [facility] Note Date/Time June 17, 2025 10 :48am [facility] Medical Records Department [address] [place] [address] Counseling Note - Pharmacy 06/17/25 1047 MR#: [id number] Acct: [id number] Name: SONIA SZYMANSKI Rep #:[id number] : 1995 30 From: Polly Torrez PCP: Dr. Isaias Bradley MD Status:ADM I NO Y Location: [facility] [id number] Pharmacy [facility] Counseling Pharmacy Service has performed discharge medication reconciliation and counseling for this patient. 1. OXYCODONE 5MG PO Q4H PRN PAIN 2. DECADRON 4.5MG PO DAILY X 3 DAYS, THEN 3MG X 3 DAYS, THEN 1.5MG X 3 DAYS, THEN RESUME NORMAL DOSING The patient's discharge medication list was reviewed for discrepancies and discrepancies were resolved. The patient was counseled on the following discharge medications and changes in medications for homegoing were reviewed. The Reason for Use, instructions for use, and potential side effects were reviewed for all new medications. The patient's questions regarding all of their medications were answered. The patient was able to verbally demonstrate an understanding of their dischargemedications. Medications at Discharge Home Medications albuterol sulfate 90 mcg/actuation aerosol inhaler (Ventolin HFA) 2 inh inhalation Q4H PRN sob 08/09/22 tizanidine 4 mg tablet 4 mg PO Q8H PRN Spasms 08/09/22 pantoprazole 40 mg tablet,delayed release 40 mg PO DAILY see pcp 02/23/23 atorvastatin 10 mg tablet 10 mg PO DAILY hyperlipidemia 07/24/23 clomipramine 50 mg capsule 100 mg PO BID see pcp 07/24/23 levothyroxine 125 mcg tablet 125 mcg PO DAILY see pcp 07/24/23 alprazolam 0.5 mg tablet 0.5 mg PO TID PRN PRN anxiety 02/16/25 empagliflozin 10 mg tablet (Jardiance) 10 mg PO DAILY see pcp 02/16/25 lamotrigine 100 mg tablet 100 mg PO DAILY see pcp 02/16/25 lurasidone 60 mg tablet 60 mg PO QPM see pcp 02/16/25 topiramate 25 mg tablet 25 mg PO QHS migraine 02/16/25 dexamethasone 0.75 mg tablet 1.5 mg PO Q24H 06/16/25 dexamethasone 1.5 mg tablet 1.5 mg PO DAILY #18 tabs 06/17/25 oxycodone 5 mg tablet 5 mg PO Q4H PRN PRN Pain Score 4-10 3 days #10 tabs 06/17/25 06/17/25 1048 <Electronically signed by Polly Torrez> Date _ Polly Torrez Cosigner Signature (if applicable): Date CC: ~ Signed [facility] Work Phone: 1(469) 740-116308-26-2025 Discharge summary Author Mode Christianson [facility] Note Date/Time June 17, 2025 10 :15am [facility] Medical Records Department [address] [place] [address] Instructions for Home/Discharge Instructions 06/17/25 0929 MR#: [id number] Acct: [id number] Name: SONIA SZYMANSKI Rep #:[id number] : 1995 30 From: Mode briceño MD PCP: Dr. Isaias Bradley MD Status:ADM I NO Discharge Instructions DC O2, CPAP, BIPAP needs Home O2 Discharge instructions: No Dressing / Incision Discharge Activity: Return to Normal Activity Dressing / Incision Call your doctor if you observe: Fever of 101 or Higher, Shortness of breath, Dizziness, Fainting spells, Swelling in the ankles, Chest pain and Increased palpitations (irregular heartbeat) Follow Up Care Test Results: Test results from this visit will be discussed in further detail at your follow- up appointment, if applicable. Discharge Plan Admission Admit Date/Time: 06/16/25 17:13 Attending Provider: Mode Christianson Primary Care Provider: Isaias Bradley Consulting Providers: Mary Wang Discharge Orders/Prescriptions Prescriptions: New oxycodone 5 mg Tablet 5 mg PO Q4H PRN PRN (Reason: Pain Score 4-10) 3 Days Qty: 10 0RF dexamethasone 1.5 mg tablet 1.5 mg PO DAILY Qty: 18 0RF Rx Instructions: take 3 tablets daily for 3 days then 2 tablets daily for 3 days then 1 tabletdaily for 3 days then resume regular dosing Continued tizanidine 4 mg tablet 4 mg PO Q8H PRN (Reason: Spasms) Patient Comments: TAKE 1 TABLET BY MOUTH EVERY 8 HOURS NEEDED albuterol sulfate [Ventolin HFA] 90 mcg/actuation HFA aerosol inhaler 2 inh INHALATION Q4H PRN (Reason: sob) Patient Comments: Inhale 2 Puffs as instructed every 4 hours as needed. pantoprazole 40 mg tablet,delayed release (DR/EC) 40 mg PO DAILY atorvastatin 10 mg tablet 10 mg PO DAILY Patient Comments: TAKE 1 TABLET BY MOUTH ONCE DAILY levothyroxine 125 mcg tablet 125 mcg PO DAILY Patient Comments: Take 1 tablet by mouth once daily. M=S AND 1.5 ON MONDAY clomipramine 50 mg capsule 100 mg PO BID Patient Comments: TAKE 2 CAPSULES BY MOUTH EVERY DAY AT BEDTIME alprazolam 0.5 mg tablet 0.5 mg PO TID PRN PRN (Reason: anxiety) topiramate 25 mg tablet 25 mg PO QHS lurasidone 60 mg tablet 60 mg PO QPM lamotrigine 100 mg tablet 100 mg PO DAILY Jardiance 10 mg tablet 10 mg PO DAILY dexamethasone 0.75 mg tablet 1.5 mg PO Q24H Referrals / Follow Up: Isaias Bradley MD [Primary Care Provider] - Within 1 Week Disposition Disposition (needs filled in before D/C Order can be placed): Home, Self Care 06/17/25 1015<Electronically signed by Mode Christianson MD>Mode Christianson MD CC: Dr. Mary Wang MD; Dr. Isaias Bradley MD ~ Signed [facility] Work Phone: 1(897) 686-617108-26-2025 Consult note [facility] Medical Records Department [address] [place] [address] Counseling Note - Pharmacy 06/17/25 1047 MR#: [id number] Acct: [id number] Name: SONIA SZYMANSKI Rep #:[id number] : 1995 30 From: Polly Torrez PCP: Dr. Isaias Bradley MD Status:ADM I NO Y Location: [facility] [id number] Pharmacy [facility] Counseling Pharmacy Service has performed discharge medication reconciliation and counseling for this patient. 1. OXYCODONE 5MG PO Q4H PRN PAIN 2. DECADRON 4.5MG PO DAILY X 3 DAYS, THEN 3MG X 3 DAYS, THEN 1.5MG X 3 DAYS, THEN RESUME NORMAL DOSING The patient's discharge medication list was reviewed for discrepancies and discrepancies were resolved. The patient was counseled on the following discharge medications and changes in medications for homegoing were reviewed. The Reason for Use, instructions for use, and potential side effects were reviewed for all new medications. The patient's questions regarding all of their medications were answered. The patient was able to verbally demonstrate an understanding of their dischargemedications. Medications at Discharge Home Medications albuterol sulfate 90 mcg/actuation aerosol inhaler (Ventolin HFA) 2 inh inhalation Q4H PRN sob 08/09/22 tizanidine 4 mg tablet 4 mg PO Q8H PRN Spasms 08/09/22 pantoprazole 40 mg tablet,delayed release 40 mg PO DAILY see pcp 02/23/23 atorvastatin 10 mg tablet 10 mg PO DAILY hyperlipidemia 07/24/23 clomipramine 50 mg capsule 100 mg PO BID see pcp 07/24/23 levothyroxine 125 mcg tablet 125 mcg PO DAILY see pcp 07/24/23 alprazolam 0.5 mg tablet 0.5 mg PO TID PRN PRN anxiety 02/16/25 empagliflozin 10 mg tablet (Jardiance) 10 mg PO DAILY see pcp 02/16/25 lamotrigine 100 mg tablet 100 mg PO DAILY see pcp 02/16/25 lurasidone 60 mg tablet 60 mg PO QPM see pcp 02/16/25 topiramate 25 mg tablet 25 mg PO QHS migraine 02/16/25 dexamethasone 0.75 mg tablet 1.5 mg PO Q24H 06/16/25 dexamethasone 1.5 mg tablet 1.5 mg PO DAILY #18 tabs 06/17/25 oxycodone 5 mg tablet 5 mg PO Q4H PRN PRN Pain Score 4-10 3 days #10 tabs 06/17/25 06/17/25 1048 Date _ Polly Ahmadiignyaneli Signature (if applicable): Date CC: ~ Signed [facility]08-26-2025 Discharge summary [facility] Medical Records Department [address] [place] [address] Instructions for Home/Discharge Instructions 06/17/25928 MR#: [id number] Acct: [id number] Name: SONIA SZYMANSKI Rep #:[id number] : 1995 30 From: Mode briceño MD PCP: Dr. Isaias Bradley MD Status:ADM I NO Discharge Instructions DC O2, CPAP, BIPAP needs Home O2 Discharge instructions: No Dressing / Incision Discharge Activity: Return to Normal Activity Dressing / Incision Call your doctor if you observe: Fever of 101 or Higher, Shortness of breath, Dizziness, Fainting spells, Swelling in the ankles, Chest pain and Increased palpitations (irregular heartbeat) Follow Up Care Test Results: Test results from this visit will be discussed in further detail at your follow- up appointment, if applicable. Discharge Plan Admission Admit Date/Time: 06/16/25 17:13 Attending Provider: Mode Christianson Primary Care Provider: Isaias Bradley Consulting Providers: Mary Wang Discharge Orders/Prescriptions Prescriptions: New oxycodone 5 mg Tablet 5 mg PO Q4H PRN PRN (Reason: Pain Score 4-10) 3 Days Qty: 10 0RF dexamethasone 1.5 mg tablet 1.5 mg PO DAILY Qty: 18 0RF Rx Instructions: take 3 tablets daily for 3 days then 2 tablets daily for 3 days then 1 tabletdaily for 3 days then resume regular dosing Continued tizanidine 4 mg tablet 4 mg PO Q8H PRN (Reason: Spasms) Patient Comments: TAKE 1 TABLET BY MOUTH EVERY 8 HOURS NEEDED albuterol sulfate [Ventolin HFA] 90 mcg/actuation HFA aerosol inhaler 2 inh INHALATION Q4H PRN (Reason: sob) Patient Comments: Inhale 2 Puffs as instructed every 4 hours as needed. pantoprazole 40 mg tablet,delayed release (DR/EC) 40 mg PO DAILY atorvastatin 10 mg tablet 10 mg PO DAILY Patient Comments: TAKE 1 TABLET BY MOUTH ONCE DAILY levothyroxine 125 mcg tablet 125 mcg PO DAILY Patient Comments: Take 1 tablet by mouth once daily. M=S AND 1.5 ON MONDAY clomipramine 50 mg capsule 100 mg PO BID Patient Comments: TAKE 2 CAPSULES BY MOUTH EVERY DAY AT BEDTIME alprazolam 0.5 mg tablet 0.5 mg PO TID PRN PRN (Reason: anxiety) topiramate 25 mg tablet 25 mg PO QHS lurasidone 60 mg tablet 60 mg PO QPM lamotrigine 100 mg tablet 100 mg PO DAILY Jardiance 10 mg tablet 10 mg PO DAILY dexamethasone 0.75 mg tablet 1.5 mg PO Q24H Referrals / Follow Up: Isaias Bradley MD [Primary Care Provider] - Within 1 Week Disposition Disposition (needs filled in before D/C Order can be placed): Home, Self Care 06/17/25 1015Mode Christianson MD CC: Dr. Mary Wang MD; Dr. Isaias Bradley MD ~ Signed [facility]08-25-2025 History and physical note Author Mary Wang [facility] Note Date/Time June 16, 2025 6: 04pm [facility] Medical Records Department [address] [place] [address] H&P Exam - Hospitalist 06/16/25 1713 MR#: [id number] Acct: [id number] Name: SONIA SZYMANSKI Rep #:[id number] : 1995 30 From: Mary Wang MD PCP: Dr. Isaias Bradley MD Status:ADM I NO Location: [facility] [id number] HPI - General General Date of Admission: 06/16/25 Date of Service: 06/16/25 Chief Complaint: light headed HPI Narrative SONIA SZYMANSKI, is a 30-year-old female history of Wabasso's disease, anxiety, migraines, GERD, hypothyroidism who presented to [facility] ED 06/16/2025 reporting lightheadedness and feeling like she was going into an adrenal crisis. In the ED patient afebrile, heart rate 66 with a blood /68 and patient 94% on room air. Labs fairly unrevealing aside from a cortisol that was low at 0.16 despite patient reporting compliance with her medications for Wabasso's. She reports she recently saw her mold operator andthey were actually going to increase her medicine as they were concerned she washeaded towards adrenal crisis which she has yet to pick it up. Patient given a dose of IV hydrocortisone, IV fluids and hospitalist contacted for admission. Patient evaluated at bedside, she reports that she is lightheaded and feels foggy when she tries to sit up or stand up, also has a left sided headache whichshe reports is where she gets her migraines and thinks it is from all of the stress of this, has had some nausea and diarrhea over the past 2 days and reports that this feels just like previous adrenal crises, also some right upperquadrant pain, again consistent with this. [facility] Medical History (Updated 06/16/25 @ 17:[address] Terrance Tavera, DO) Abnormal uterine bleeding (AUB) Addisonian crisis Addisons disease Adenomyosis Anxiety and depression Asthma Cardiology follow-up encounter Chest pain Chronic female pelvic pain Depression Diabetes Difficulty swallowing Dysphagia Easy bruising Endometriosis determined by laparoscopy Former smoker Gastric reflux Gastroparesis GI bleed Graves disease History of diverticulitis History of echocardiogram History of IBS History of left heart catheterization History of steroid therapy History of stress test History of ulceration Irregular heart beat Kidney stones Low iron Migraine Migraines Mild intermittent asthma Restless legs Seizures Shortness of breath on exertion Wears glasses Home Medications ?Medication ?Instructions ?Recorded ?Last Taken ?Type albuterol sulfate 90 mcg/actuation 2 inh inhalation Q4 H PRN sob 08/09/22 Unknown History aerosol inhaler (Ventolin HFA) tizanidine 4 mg tablet 4 mg PO Q8H PRN Spasms 08/0906/15/25 History pantoprazole 40 mg tablet,delayed 40 mg PO DAILY see p cp 02/23/23 06/15/25 History release atorvastatin 10 mg tablet 10 mg PO DAILY hyperlipidemi a 07/24/23 06/15/25 History clomipramine 50 mg capsule 100 mg PO BID see pcp 07/2406/15/25 History levothyroxine 125 mcg tablet 125 mcg PO DAILY see pcp 07/24/23 06/15/25 History alprazolam 0.5 mg tablet 0.5 mg PO TID PRN PRN anxiet y 02/16/25 06/15/25 History empagliflozin 10 mg tablet 10 mg PO DAILY see pcp 01/2206/15/25 History (Jardiance) lamotrigine 100 mg tablet 100 mg PO DAILY see pcp 01/2206/15/25 History lurasidone 60 mg tablet 60 mg PO QPM see pcp 5 06/15/25 History topiramate 25 mg tablet 25 mg PO QHS migraine 06/15/25 History dexamethasone 0.75 mg tablet 1.5 mg PO Q24H 06/16/25 0 06/15/25 History Allergy/AdvReac Type Severity Reaction Status Date / Time acetaminophen (From Excedrin Allergy Anaphylaxis Verified 06/16/25 10:09 Migraine) aspirin (From Excedrin Allergy Anaphylaxis Verified 06/16/25 10:09 Migraine) azithromycin (From Zithromax Allergy Anaphylaxis Verified 06/16/25 10:09 Z-[place]) bacitracin (From Neosporin Allergy Swelling Verified 06/16/25 10:09 ([id number])) bacitracin zinc (From Allergy Swelling Verified 06/16/25 10:09 Neosporin ([id number]-wby-[id number])) caffeine (From Excedrin Allergy Anaphylaxis Verified 06/16/25 10:09 Migraine) latex Allergy Rash Verified 06/16/25 10:09 neomycin sulfate (From Allergy Swelling Verified 06/16/25 10:09 Neosporin ([id number]-ygh-[id number])) polymyxin B (From Neosporin Allergy Swelling Verified 06/16/25 10:09 (tml-flz-[id number])) Family History Uncle Diabetes Cancer lung Father Diabetes Grandfather CVA (cerebral vascular accident) Cancer lung, unsure additional type Uncle Cancer brain Grandmother Cancer lung and unsure additional type Surgical History (Updated 06/16/25 @ 17:11 by Dayami Steele) History of appendectomy History of section History of cholecystectomy History of laparoscopic-assisted vaginal hysterectomy History of laparoscopy History of left salpingo-oophorectomy History of thyroidectomy History of tubal ligation History of wisdom tooth extraction Hx laparoscopic cholecystectomy Social History (Updated 02/16/25 @ 16:54 by Vesta Lucero) household members: spouse housing: house Smoking Status: Former smoker ROS ROS Narrative General: Denies fever/chills HENT: Left-sided headache, denies stuffy nose, denies sore throat EYES: Denies changes in vision Resp: Denies cough, denies shortness of breath Cardiac: Denies chest pain GI: Some right upper quadrant pain, diarrhea, nausea : Denies changes in urination Extremity: Denies swelling MSK: Feels generally weak and fatigued Neuro: Denies any numbness/tingling Heme: Denies any bleeding or bruising Skin: Denies rashes Psychiatric: No complaints voiced Vital Signs Vital Signs Vital Signs: 06/16/25 10:07 06/16/25 10:59 06/16/25 11:07 Temperature 97.9 F Temperature Source Oral Pulse Rate 66 62 Pulse Rate [Lying] 64 Pulse Rate [Sitting (for 1 minute prior to obtaining)] 81 Pulse Rate [Standing (for 1 minute prior to obtaining)] 103 H Respiratory Rate 11 L Blood Pressure 102/68 101/72 Blood Pressure [Lying] 94/67 Blood Pressure [Sitting (for 1 minute prior to obtaining)] 106/79 Blood Pressure [Standing (for 1 minute prior to obtaining)] 98/82 H Blood Pressure Mean 79 81 Blood Pressure Mean [Lying] 76 Blood Pressure Mean [Sitting (for 1 minute prior to obtaining)] 88 Blood Pressure Mean [Standing (for 1 minute prior to obtaining)] 87 Pulse Ox 94 98 Oxygen Delivery Method Room Air 06/16/25 12:00 06/16/25 13:35 06/16/25 14:58 Temperature Temperature Source Pulse Rate 67 61 63 Pulse Rate [Lying] Pulse Rate [Sitting (for 1 minute prior to obtaining)] Pulse Rate [Standing (for 1 minute prior to obtaining)] Respiratory Rate 14 17 Blood Pressure 98/71 Blood Pressure [Lying] Blood Pressure [Sitting (for 1 minute prior to obtaining)] Blood Pressure [Standing (for 1 minute prior to obtaining)] Blood Pressure Mean 80 Blood Pressure Mean [Lying] Blood Pressure Mean [Sitting (for 1 minute prior to obtaining)] Blood Pressure Mean [Standing (for 1 minute prior to obtaining)] Pulse Ox 99 93 Oxygen Delivery Method 06/16/25 15:00 06/16/25 16:13 Temperature Temperature Source Pulse Rate 66 65 Pulse Rate [Lying] Pulse Rate [Sitting (for 1 minute prior to obtaining)] Pulse Rate [Standing (for 1 minute prior to obtaining)] Respiratory Rate 16 18 Blood Pressure Blood Pressure [Lying] Blood Pressure [Sitting (for 1 minute prior to obtaining)] Blood Pressure [Standing (for 1 minute prior to obtaining)] Blood Pressure Mean Blood Pressure Mean [Lying] Blood Pressure Mean [Sitting (for 1 minute prior to obtaining)] Blood Pressure Mean [Standing (for 1 minute prior to obtaining)] Pulse Ox 100 Oxygen Delivery Method Weight Weight: 89.9 kg Body Mass Index (BMI) 33.0 Physical Exam Narrative General: Alert, oriented, appears to feel unwell HEENT: Atraumatic, normocephalic Eyes: Anicteric, normal conjunctiva, extraocular movements grossly intact Neck: Supple Respiratory: Clear to auscultation bilaterally, normal respiratory effort Cardiovascular: Regular rate and rhythm GI: Soft, nondistended, some tenderness more on right side of abdomen without rebound, guarding, rigidity Extremities: No edema Musculoskeletal: Moving all extremities Neuro: No overt focal neurological deficits Skin: No rashes appreciated Psych: Cooperative Results Lab / Micro Data 06/16/25 11:35 06/16/25 11:35 Labs: Laboratory Results - last 24 hr 06/16/25 11:11: Urine Color Straw, Urine Clarity Clear, Urine pH 7.0, Ur Specific [place] 1.005, Urine Protein 15 H, Urine Glucose (UA) 250 H, Urine Ketones Negative, Urine Occult Blood Negative, Urine Nitrite Negative, Urine Bilirubin Negative, Urine Urobilinogen Normal, Ur Leukocyte Esterase Negative, Urine RBC 0 SEEN, Urine WBC 0-5 SEEN, Ur Squamous Epith Cells 0 SEEN, Urine Bacteria RARE, Urine Mucus 0 SEEN 06/16/25 11:35: WBC 9.4, RBC 5.19, Hgb 12.7, Hct 41.6, MCV 80.2 L, MCH 24.5 L, MCHC 30.5 L, RDW Std Deviation 45.7 H, RDW Coeff of Renetta 16.1 H, Plt Count 280, MPV 9.6, Immature Gran % (Auto) 0.400, Neut % (Auto) 58.0, Lymph % (Auto) 32.6, Freestone % (Auto) 8.6, Eos % (Auto) 0.0, Baso % (Auto) 0.4, Absolute Neuts (auto) 5.4, Absolute Lymphs (auto) 3.06, Nucleated RBC % 0, Sodium 140, Potassium 3.8, Chloride 103, Carbon Dioxide 21.3, Anion Gap 16 H, BUN 9, Creatinine 0.92, EstimCreat Clear Calc 97.23, Est GFR (MDRD) Non-Af 85, BUN/Creatinine Ratio 10.1, Glucose 72, Calcium 9.1, b-Hydroxybutyric mmol/L 0.1, Cortisol AM Sample 0.16 L 06/16/25 11:53: PT 13.1, INR 1.0, APTT 29.0, Lactic Acid 2.0 Micro: Microbiology 06/16/25 11:00 Mucosa - Nose SARS-CoV-2, Influenza & RSV (PCR) - Final Assessment & Plan Assessment/Plan (1) Acute adrenal insufficiency: PLAN: Plan # History of Wabasso's disease with concern for acute adrenal insufficiency - Serum cortisol is low, patient reports all of her symptoms are consistent withprevious episodes of adrenal insufficiency, recently saw her outpatient mold operator who was concern for this as well and was going to adjust her medications but she has not picked them up yet - Continue stress dose steroids and IV fluids - Blood pressure already improving, patient seems to be improving overall, may not need prolonged stay # History of migraines - Continue Topamax #Depression/anxiety -Continue home medications #GERD -Continue PPI #Hypothyroidism -Continue Synthroid #DVT ppx: Hypothyroidism Mary Wang MD Time spent in the patient's overall evaluation, decision-making process, review of diagnostic data, adjustment of management, discussion with other providers, nursing and ancillary staff involved in patient's care documentation, 57 Minutes Charges/Coding Visit Charges Inpatient E&M: 16590 Init Hosp L2 06/16/25 1804 <Electronically signed by Mary Wang MD> Cosigner Signature (if applicable): CC: Dr. Mary Wang MD; Dr. Isaias Bradley MD~ Signed [facility] Work Phone: [phone]) 913-410408-25-2025 Discharge summary Author Terrance Tavera [facility] Note Date/Time June 16, 2025 5: 57pm [facility] Medical Records Department [address] [place] [id number] Emergency Department Summary 06/16/25 MR#: [id number] Acct: [id number] Name: SONIA SZYMANSKI Rep #:[id number] : 1995 30 From: Terrance Platt PCP: Dr. Isaias Bradley MD Status:ADM I NO Location: [id number] [id number] HPI History of Present Illness Chief Complaint: Dizziness Informant: patient Onset/Context/Timing Onset: Yesterday Context: Gradual Onset Timing: Continuous Quality: Dizzy, spinning sensation Location: Generalized Worsened by: Nothing Relieved by: Nothing Narrative Narrative: Patient presents with dizziness and possible Slade's flare. Patient states she feels like everything is spinning. Patient states it is generalized. Patient admits to some nausea but denies any vomiting. Patient admits to some right upper quadrant abdominal pain which she states is typical of her Slade'sflareups. Patient states nothing makes it worse and nothing makes it better. Patient states it has been constant since yesterday evening. Patient states shehad difficulty walking and called EMS. [facility] Medical History (Updated 06/16/25 @ 17:[address] Terrance Tavera, DO) Depression Kidney stones GI bleed Irregular heart beat Migraines Addisonian crisis Addisons disease Gastroparesis Dysphagia Wears glasses History of steroid therapy Diabetes Low iron Easy bruising Restless legs Seizures Difficulty swallowing History of ulceration History of IBS History of diverticulitis Gastric reflux Former smoker Asthma Shortness of breath on exertion Cardiology follow-up encounter History of echocardiogram History of stress test Chest pain History of left heart catheterization Anxiety and depression Graves disease Abnormal uterine bleeding (AUB) Endometriosis determined by laparoscopy Adenomyosis Chronic female pelvic pain Migraine Mild intermittent asthma Home Medications ?Medication ?Instructions ?Recorded ?Last Taken ?Type albuterol sulfate 90 mcg/actuation 2 inh inhalation Q4 H PRN sob 08/09/22 Unknown History aerosol inhaler (Ventolin HFA) tizanidine 4 mg tablet 4 mg PO Q8H PRN Spasms 08/0906/15/25 History pantoprazole 40 mg tablet,delayed 40 mg PO DAILY see p cp 02/23/23 06/15/25 History release atorvastatin 10 mg tablet 10 mg PO DAILY hyperlipidemi a 07/24/23 06/15/25 History clomipramine 50 mg capsule 100 mg PO BID see pcp 07/2406/15/25 History levothyroxine 125 mcg tablet 125 mcg PO DAILY see pcp 07/24/23 06/15/25 History alprazolam 0.5 mg tablet 0.5 mg PO TID PRN PRN anxiet y 02/16/25 06/15/25 History empagliflozin 10 mg tablet 10 mg PO DAILY see pcp 01/2206/15/25 History (Jardiance) lamotrigine 100 mg tablet 100 mg PO DAILY see pcp 01/2206/15/25 History lurasidone 60 mg tablet 60 mg PO QPM see pcp 5 06/15/25 History topiramate 25 mg tablet 25 mg PO QHS migraine 06/15/25 History dexamethasone 0.75 mg tablet 1.5 mg PO Q24H 06/16/25 0 06/15/25 History Allergy/AdvReac Type Severity Reaction Status Date / Time acetaminophen (From Excedrin Allergy Anaphylaxis Verified 06/16/25 10:09 Migraine) aspirin (From Excedrin Allergy Anaphylaxis Verified 06/16/25 10:09 Migraine) azithromycin (From Zithromax Allergy Anaphylaxis Verified 06/16/25 10:09 Z-[place]) bacitracin (From Neosporin Allergy Swelling Verified 06/16/25 10:09 ([id number]-lceil)) bacitracin zinc (From Allergy Swelling Verified 06/16/25 10:09 Neosporin (diw-pee-knwoq)) caffeine (From Excedrin Allergy Anaphylaxis Verified 06/16/25 10:09 Migraine) latex Allergy Rash Verified 06/16/25 10:09 neomycin sulfate (From Allergy Swelling Verified 06/16/25 10:09 Neosporin (enc-rsn-prcyd)) polymyxin B (From Neosporin Allergy Swelling Verified 06/16/25 10:09 (ese-bci-bdfff)) Family History Uncle Diabetes Cancer lung Father Diabetes Grandfather CVA (cerebral vascular accident) Cancer lung, unsure additional type Uncle Cancer brain Grandmother Cancer lung and unsure additional type Surgical History (Updated 06/16/25 @ 17:11 by Dayami Steele) History of cholecystectomy History of appendectomy Hx laparoscopic cholecystectomy History of left salpingo-oophorectomy History of tubal ligation History of laparoscopic-assisted vaginal hysterectomy History of laparoscopy History of wisdom tooth extraction History of thyroidectomy History of section Social History (Updated 02/16/25 @ 16:54 by Vesta Lucero) household members: spouse housing: house Smoking Status: Former smoker EXAM Physical Exam Const Vital Signs: 06/16/25 10:07 06/16/25 10:59 06/16/25 11:07 Temperature 97.9 F Temperature Source Oral Pulse Rate 66 62 Pulse Rate [Lying] 64 Pulse Rate [Sitting (for 1 minute prior to obtaining)] 81 Pulse Rate [Standing (for 1 minute prior to obtaining)] 103 H Respiratory Rate 11 L Blood Pressure 102/68 101/72 Blood Pressure [Lying] 94/67 Blood Pressure [Sitting (for 1 minute prior to obtaining)] 106/79 Blood Pressure [Standing (for 1 minute prior to obtaining)] 98/82 H Blood Pressure Mean 79 81 Blood Pressure Mean [Lying] 76 Blood Pressure Mean [Sitting (for 1 minute prior to obtaining)] 88 Blood Pressure Mean [Standing (for 1 minute prior to obtaining)] 87 Pulse Ox 94 98 Oxygen Delivery Method Room Air 06/16/25 12:00 06/16/25 13:35 06/16/25 14:58 Temperature Temperature Source Pulse Rate 67 61 63 Pulse Rate [Lying] Pulse Rate [Sitting (for 1 minute prior to obtaining)] Pulse Rate [Standing (for 1 minute prior to obtaining)] Respiratory Rate 14 17 Blood Pressure 98/71 Blood Pressure [Lying] Blood Pressure [Sitting (for 1 minute prior to obtaining)] Blood Pressure [Standing (for 1 minute prior to obtaining)] Blood Pressure Mean 80 Blood Pressure Mean [Lying] Blood Pressure Mean [Sitting (for 1 minute prior to obtaining)] Blood Pressure Mean [Standing (for 1 minute prior to obtaining)] Pulse Ox 99 93 Oxygen Delivery Method 06/16/25 15:00 06/16/25 16:13 Temperature Temperature Source Pulse Rate 66 65 Pulse Rate [Lying] Pulse Rate [Sitting (for 1 minute prior to obtaining)] Pulse Rate [Standing (for 1 minute prior to obtaining)] Respiratory Rate 16 18 Blood Pressure Blood Pressure [Lying] Blood Pressure [Sitting (for 1 minute prior to obtaining)] Blood Pressure [Standing (for 1 minute prior to obtaining)] Blood Pressure Mean Blood Pressure Mean [Lying] Blood Pressure Mean [Sitting (for 1 minute prior to obtaining)] Blood Pressure Mean [Standing (for 1 minute prior to obtaining)] Pulse Ox 100 Oxygen Delivery Method Positive well nourished and well developed Constitutional Narrative: BMI is 33.0. General Appearance ED: well developed and NAD HEENT Reports moist mucous membranes Neck supple and no JVD Resp normal respiratory effort and clear to auscultation bilaterally Cardio regular rate and regular rhythm GI non-tender and non-distended Palpation: soft Extremity normal to inspection General Extremety ED: Negative for edema or tenderness General Extremity: Negative for edema Neuro oriented x3, CN's II-XII intact bilaterally and no sensory deficits noted Sensorium / Orientation: alert Motor Exam: strength 5/5 throughout Psych mental status grossly normal MDM MDM MDM Narrative Medical decision making narrative: Differential diagnosis includes Wabasso's crisis, gastroenteritis, gastritis, peptic ulcer disease, duodenal ulcer, pancreatitis, dehydration, diabetic ketoacidosis, sepsis, peripheral vertigo, and electrolyte abnormality. CBC willbe obtained to assess for leukocytosis and anemia. Basic metabolic profile willbe obtained to assess for electrolyte abnormality and renal function. Serum lactate will be obtained to assess for sepsis. PT with INR PTT will be obtainedto assess for coagulopathy. Serum cortisol level will be obtained to assess forAddison's crisis. Urinalysis will be obtained to assess for urinary tract infection or hematuria. COVID-19, influenza, and RSV PCR will be obtained to assess for viral illness. Serum ketones will be obtained to assess for diabeticketoacidosis. Orthostatic vital signs will be obtained to assess for hypovolemia. History & Record Review Additional record(s) reviewed:: Prior inpatient record, Prior ED visit and Priorlabs Lab Data Attestation: I reviewed the patient's lab results. Lab results narrative: CBC was reviewed and was essentially within normal limits. Basic metabolic profile was reviewed and was within normal limits. Serum lactate was reviewed and was 2.0. PT with INR and PTT were reviewed and were within normal limits. Urinalysis was reviewed. There is no evidence of urinary tract infection or hematuria. Serum cortisol level was reviewed and was low at 0.16. Beta hydroxybutyrate was obtained and was normal at 0.1. COVID-19 PCR was reviewed and was negative. Influenza PCR was reviewed and was negative for influenza A and influenza B. RSV PCR was reviewed and was negative. Labs: Laboratory Results - last 24 hr 06/16/25 06/16/25 06/16/25 11:11 11:35 11:53 WBC 9.4 RBC 5.19 Hgb 12.7 Hct 41.6 MCV 80.2 L MCH 24.5 L MCHC 30.5 L RDW Std Deviation 45.7 H RDW Coeff of Renetta 16.1 H Plt Count 280 MPV 9.6 Immature Gran % (Auto) 0.400 Neut % (Auto) 58.0 Lymph % (Auto) 32.6 [place] % (Auto) 8.6 Eos % (Auto) 0.0 Baso % (Auto) 0.4 Absolute Neuts (auto) 5.4 Absolute Lymphs (auto) 3.06 Nucleated RBC % 0 PT 13.1 INR 1.0 APTT 29.0 Sodium 140 Potassium 3.8 Chloride 103 Carbon Dioxide 21.3 Anion Gap 16 H BUN 9 Creatinine 0.92 Estim Creat Clear Calc 97.23 Est GFR (MDRD) Non-Af 85 BUN/Creatinine Ratio 10.1 Glucose 72 Lactic Acid 2.0 Calcium 9.1 b-Hydroxybutyric mmol/L 0.1 Cortisol AM Sample 0.16 L Urine Color Straw Urine Clarity Clear Urine pH 7.0 Ur Specific [place] 1.005 Urine Protein 15 H Urine Glucose (UA) 250 H Urine Ketones Negative Urine Occult Blood Negative Urine Nitrite Negative Urine Bilirubin Negative Urine Urobilinogen Normal Ur Leukocyte Esterase Negative Urine RBC 0 SEEN Urine WBC 0-5 SEEN Ur Squamous Epith Cells 0 SEEN Urine Bacteria RARE Urine Mucus 0 SEEN Treatment and Re-Evaluation :: Patient was given IV fluids. Patient was given a dose of Solu-Cortef. Patient is feeling better on reevaluation. However, she still felt dizzy. Patient was advised of her findings. Patient was given a repeat bolus of normal saline. Case was discussed with the hospitalist. She will admit the patient to her service. Patient understood and was agreeable with the plan. All questions were answered. Discharge Plan Dx/Rx/DC Orders Clinical Impression: Acute adrenal insufficiency, Vertigo, Type 2 diabetes mellitus Disposition Disposition: Acute Care Hospital [facility] Discharge Date/Time: 06/16/25 17:41 What to do if you have Problems For any increased pain, shortness of breath, bleeding, nausea or vomiting, chestpain, or any unexpected problems, contact your Primary Care Provider. Call [facility] ([phone]) or report to the closest Emergency Room. Call 911 if necessary. 06/16/25 723 <Electronically signed by Terrance Tavera DO> Cosigner Signature (if applicable): CC: Dr. Isaias Bradley MD ~ Signed [facility] Work Phone: 1(291) 800-864908-25-2025 Evaluation note* Diagnosis Onset Date Resolution Status Admit Date Acute adrenal insufficiency inactive June 16, 2025 5:13pm Acute adrenal insufficiency acute July 20, 2025 3:05pm Elevated liver enzymes acute Se ptember 2024 3:05pm Myalgia acute June 3:05pm Weakness acute June 3:05pm [facility] Work Phone: 1([phone] 140-971808-25-2025 History and physical note [facility] Medical Records Department [address] [place] [address] H&P Exam - Hospitalist 06/16/25 1713 MR#: [id number] Acct: [id number] Name: SONIA SZYMANSKI Rep #:[id number] : 1995 30 From: Mary Wang MD PCP: Dr. Isaias Bradley MD Status:ADM I NO Location: [facility] [id number] HPI - General General Date of Admission: 06/16/25 Date of Service: 06/16/25 Chief Complaint: light headed HPI Narrative SONIA SZYMANSKI, is a 30-year-old female history of Wabasso's disease, anxiety, migraines, GERD, hypothyroidism who presented to [facility] ED 06/16/2025 reporting lightheadedness and feeling like she was going into an adrenal crisis. In the ED patient afebrile, heart rate 66 with a blood [id number] and patient 94% on room air. Labs fairly unrevealing aside from a cortisol that was low at 0.16 despite patient reporting compliance with her medications for Wabasso's. She reports she recently saw her mold operator andthey were actually going to increase her medicine as they were concerned she washeaded towards adrenal crisis which she has yet to pick it up. Patient given a dose of IV hydrocortisone, IV fluids and hospitalist contacted for admission. Patient evaluated at bedside, she reports that she is lightheaded and feels foggy when she tries to sit up or stand up, also has a left sided headache whichshe reports is where she gets her migraines and thinks it is from all of the stress of this, has had some nausea and diarrhea over the past 2 days and reports that this feels just like previous adrenal crises, also some right upperquadrant pain, again consistent withthis. [facility] Medical History (Updated 06/16/25 @ 17:[address] Terrance Tavera DO) Abnormal uterine bleeding (AUB) Addisonian crisis Addisons disease Adenomyosis Anxiety and depression Asthma Cardiology follow-up encounter Chest pain Chronic female pelvic pain Depression Diabetes Difficulty swallowing Dysphagia Easy bruising Endometriosis determined by laparoscopy Former smoker Gastric reflux Gastroparesis GI bleed Graves disease History of diverticulitis History of echocardiogram History of IBS History of left heart catheterization History of steroid therapy History of stress test History of ulceration Irregular heart beat Kidney stones Low iron Migraine Migraines Mild intermittent asthma Restless legs Seizures Shortness of breath on exertion Wears glasses Home Medications ?Medication ?Instructions ?Recorded ?Last Taken ?Type albuterol sulfate 90 mcg/actuation 2 inh inhalation Q4 H PRN sob 08/09/22 Unknown History aerosol inhaler (Ventolin HFA) tizanidine 4 mg tablet 4 mg PO Q8H PRN Spasms 08/0906/15/25 History pantoprazole 40 mg tablet,delayed 40 mg PO DAILY see p cp 02/23/23 06/15/25 History release atorvastatin 10 mg tablet 10 mg PO DAILY hyperlipidemi a 07/24/23 06/15/25 History clomipramine 50 mg capsule 100 mg PO BID see pcp 07/2406/15/25 History levothyroxine 125 mcg tablet 125 mcg PO DAILY see pcp 07/24/23 06/15/25 History alprazolam 0.5 mg tablet 0.5 mg PO TID PRN PRN anxiet y 02/16/25 06/15/25 History empagliflozin 10 mg tablet 10 mg PO DAILY see pcp 01/2206/15/25 History (Jardiance) lamotrigine 100 mg tablet 100 mg PO DAILY see pcp 01/2206/15/25 History lurasidone 60 mg tablet 60 mg PO QPM see pcp 5 06/15/25 History topiramate 25 mg tablet 25 mg PO QHS migraine 06/15/25 History dexamethasone 0.75 mg tablet 1.5 mg PO Q24H 06/16/25 0 06/15/25 History Allergy/AdvReac Type Severity Reaction Status Date / Time acetaminophen (From Excedrin Allergy Anaphylaxis Verified 06/16/25 10:09 Migraine) aspirin (From Excedrin Allergy Anaphylaxis Verified 06/16/25 10:09 Migraine) azithromycin (From Zithromax Allergy Anaphylaxis Verified 06/16/25 10:09 Z-[place]) bacitracin (From Neosporin Allergy Swelling Verified 06/16/25 10:09 ([id number]-krk-[id number])) bacitracin zinc (From Allergy Swelling Verified 06/16/25 10:09 Neosporin (nyc-rin-ydssf)) caffeine (From Excedrin Allergy Anaphylaxis Verified 06/16/25 10:09 Migraine) latex Allergy Rash Verified 06/16/25 10:09 neomycin sulfate (From Allergy Swelling Verified 06/16/25 10:09 Neosporin ([id number]-bdw-[id number])) polymyxin B (From Neosporin Allergy Swelling Verified 06/16/25 10:09 ([id number])) Family History Uncle Diabetes Cancer lung Father Diabetes Grandfather CVA (cerebral vascular accident) Cancer lung, unsure additional type Uncle Cancer brain Grandmother Cancer lung and unsure additional type Surgical History (Updated 06/16/25 @ 17:11 by Dayami Steele) History of appendectomy History of section History of cholecystectomy History of laparoscopic-assisted vaginal hysterectomy History of laparoscopy History of left salpingo-oophorectomy History of thyroidectomy History of tubal ligation History of wisdom tooth extraction Hx laparoscopic cholecystectomy Social History (Updated 02/16/25 @ 16:54 by Vesta Lucero) household members: spouse housing: house Smoking Status: Former smoker ROS ROS Narrative General: Denies fever/chills HENT: Left-sided headache, denies stuffy nose, denies sore throat EYES: Denies changes in vision Resp: Denies cough, denies shortness of breath Cardiac: Denies chest pain GI: Some right upper quadrant pain, diarrhea, nausea : Denies changes in urination Extremity: Denies swelling MSK: Feels generally weak and fatigued Neuro: Denies any numbness/tingling Heme: Denies any bleeding or bruising Skin: Denies rashes Psychiatric: No complaints voiced Vital Signs Vital Signs Vital Signs: 06/16/25 10:07 06/16/25 10:59 06/16/25 11:07 Temperature 97.9 F Temperature Source Oral Pulse Rate 66 62 Pulse Rate [Lying] 64 Pulse Rate [Sitting (for 1 minute prior to obtaining)] 81 Pulse Rate [Standing (for 1 minute prior to obtaining)] 103 H Respiratory Rate 11 L Blood Pressure 102/68 101/72 Blood Pressure [Lying] 94/67 Blood Pressure [Sitting (for 1 minute prior to obtaining)] 106/79 Blood Pressure [Standing (for 1 minute prior to obtaining)] 98/82 H Blood Pressure Mean 79 81 Blood Pressure Mean [Lying] 76 Blood Pressure Mean [Sitting (for 1 minute prior to obtaining)] 88 Blood Pressure Mean [Standing (for 1 minute prior to obtaining)] 87 Pulse Ox 94 98 Oxygen Delivery Method Room Air 06/16/25 12:00 06/16/25 13:35 06/16/25 14:58 Temperature Temperature Source Pulse Rate 67 61 63 Pulse Rate [Lying] Pulse Rate [Sitting (for 1 minute prior to obtaining)] Pulse Rate [Standing (for 1 minute prior to obtaining)] Respiratory Rate 14 17 Blood Pressure 98/71 Blood Pressure [Lying] Blood Pressure [Sitting (for 1 minute prior to obtaining)] Blood Pressure [Standing (for 1 minute prior to obtaining)] Blood Pressure Mean 80 Blood Pressure Mean [Lying] Blood Pressure Mean [Sitting (for 1 minute prior to obtaining)] Blood Pressure Mean [Standing (for 1 minute prior to obtaining)] Pulse Ox 99 93 Oxygen Delivery Method 06/16/25 15:00 06/16/25 16:13 Temperature Temperature Source Pulse Rate 66 65 Pulse Rate [Lying] Pulse Rate [Sitting (for 1 minute prior to obtaining)] Pulse Rate [Standing (for 1 minute prior to obtaining)] Respiratory Rate 16 18 Blood Pressure Blood Pressure [Lying] Blood Pressure [Sitting (for 1 minute prior to obtaining)] Blood Pressure [Standing (for 1 minute prior to obtaining)] Blood Pressure Mean Blood Pressure Mean [Lying] Blood Pressure Mean [Sitting (for 1 minute prior to obtaining)] Blood Pressure Mean [Standing (for 1 minute prior to obtaining)] Pulse Ox 100 Oxygen Delivery Method Weight Weight: 89.9 kg Body Mass Index (BMI) 33.0 Physical Exam Narrative General: Alert, oriented, appears to feel unwell HEENT: Atraumatic, normocephalic Eyes: Anicteric, normal conjunctiva, extraocular movements grossly intact Neck: Supple Respiratory: Clear to auscultation bilaterally, normal respiratory effort Cardiovascular: Regular rate and rhythm GI: Soft, nondistended, some tenderness more on right side of abdomen without rebound, guarding, rigidity Extremities: No edema Musculoskeletal: Moving all extremities Neuro: No overt focal neurological deficits Skin: No rashes appreciated Psych: Cooperative Results Lab / Micro Data 06/16/25 11:35 06/16/25 11:35 Labs: Laboratory Results - last 24 hr 06/16/25 11:11: Urine Color Straw, Urine Clarity Clear, Urine pH 7.0, Ur Specific [place] 1.005, Urine Protein 15 H, Urine Glucose (UA) 250 H, Urine Ketones Negative, Urine Occult Blood Negative, Urine Nitrite Negative, Urine Bilirubin Negative, Urine Urobilinogen Normal, Ur Leukocyte Esterase Negative, Urine RBC 0 SEEN, Urine WBC 0-5 SEEN, Ur Squamous Epith Cells 0 SEEN, Urine Bacteria RARE, Urine Mucus 0 SEEN 06/16/25 11:35: WBC 9.4, RBC 5.19, Hgb 12.7, Hct 41.6, MCV 80.2 L, MCH 24.5 L, MCHC 30.5 L, RDW StdDeviation 45.7 H, RDW Coeff of Renetta 16.1 H, Plt Count 280, MPV 9.6, Immature Gran % (Auto) 0.400, Neut % (Auto) 58.0, Lymph % (Auto) 32.6, Freestone % (Auto) 8.6, Eos % (Auto) 0.0, Baso % (Auto) 0.4, Absolute Neuts (auto) 5.4, Absolute Lymphs (auto) 3.06, Nucleated RBC % 0, Sodium 140, Potassium 3.8, Chloride 103, Carbon Dioxide 21.3, Anion Gap 16 H, BUN 9, Creatinine 0.92, EstimCreat Clear Calc 97.23,Est GFR (MDRD) Non-Af 85, BUN/Creatinine Ratio 10.1, Glucose 72, Calcium 9.1, b-Hydroxybutyric mmol/L 0.1, Cortisol AM Sample 0.16 L 06/16/25 11:53: PT 13.1, INR 1.0, APTT 29.0, Lactic Acid 2.0 Micro: Microbiology 06/16/25 11:00 Mucosa - Nose SARS-CoV-2, Influenza & RSV (PCR) - Final Assessment & Plan Assessment/Plan (1) Acute adrenal insufficiency: PLAN: Plan # 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 insufficiency - Serum cortisol is low, patient reports all of her symptoms are consistent withprevious episodes of adrenal insufficiency, recently saw her outpatient mold operator who was concern for this as well and was going to adjust her medications but she has not picked them up yet - Continue stress dose steroids and IV fluids - Blood pressure already improving, patient seems to be improving overall, may not need prolonged stay # History of migraines - Continue Topamax #Depression/anxiety -Continue home medications #GERD -Continue PPI #Hypothyroidism -Continue Synthroid #DVT ppx: Hypothyroidism Mary Wang MD Time spent in the patient's overall evaluation, decision-making process, review of diagnostic data,adjustment of management, discussion with other providers, nursing and ancillary staff involved in patient's care documentation, 57 Minutes Charges/Coding Visit Charges Inpatient E&M: 97454 Init Hosp L2 06/16/25 1804 Cosigner Signature (if applicable): CC: Dr. Mary Wang MD; Dr. Isaias Bradley MD~ Signed [facility]08-25-2025 Discharge summary [facility] Medical Records Department [address] [place] [address] Emergency Department Summary 06/16/25 MR#: [id number] Acct: [id number] Name: SONIA SZYMANSKI Rep #:[id number] : 1995 30 From: Terrance Platt PCP: Dr. Isaias Bradley MD Status:ADM I NO Location: MS3 TL155-9 HPI History of Present Illness Chief Complaint: Dizziness Informant: patient Onset/Context/Timing Onset: Yesterday Context: Gradual Onset Timing: Continuous Quality: Dizzy, spinning sensation Location: Generalized Worsened by: Nothing Relieved by: Nothing Narrative Narrative: Patient presents with dizziness and possible [place]'s flare. Patient states she feels like everything is spinning. Patient states it is generalized. Patient admits to some nausea but denies any vomiting. Patient admits to some right upper quadrant abdominal pain which she states is typical of her A ddison'sflareups. Patient states nothing makes it worse and nothing makes it better. Patient statesit has been constant since yesterday evening. Patient states shehad difficulty walking and called EMS. [facility] Medical History (Updated 06/16/25 @ 17:[address] Terrance Tavera DO) Depression Kidney stones GI bleed Irregular heart beat Migraines Addisonian crisis Addisons disease Gastroparesis Dysphagia Wears glasses History of steroid therapy Diabetes Low iron Easy bruising Restless legs Seizures Difficulty swallowing History of ulceration History of IBS History of diverticulitis Gastric reflux Former smoker Asthma Shortness of breath on exertion Cardiology follow-up encounter History of echocardiogram History of stress test Chest pain History of left heart catheterization Anxiety and depression Graves disease Abnormal uterine bleeding (AUB) Endometriosis determined by laparoscopy Adenomyosis Chronic female pelvic pain Migraine Mild intermittent asthma Home Medications ?Medication ?Instructions ?Recorded ?Last Taken ?Type albuterol sulfate 90 mcg/actuation 2 inh inhalation Q4 H PRN sob 08/09/22 Unknown History aerosol inhaler (Ventolin HFA) tizanidine 4 mg tablet 4 mg PO Q8H PRN Spasms 08/0906/15/25 History pantoprazole 40 mg tablet,delayed 40 mg PO DAILY see p cp 02/23/23 06/15/25 History release atorvastatin 10 mg tablet 10 mg PO DAILY hyperlipidemi a 07/24/23 06/15/25 History clomipramine 50 mg capsule 100 mg PO BID see pcp 07/2406/15/25 History levothyroxine 125 mcg tablet 125 mcg PO DAILY see pcp 07/24/23 06/15/25 History alprazolam 0.5 mg tablet 0.5 mg PO TID PRN PRN anxiet y 02/16/25 06/15/25 History empagliflozin 10 mg tablet 10 mg PO DAILY see pcp 01/2206/15/25 History (Jardiance) lamotrigine 100 mg tablet 100 mg PO DAILY see pcp 01/2206/15/25 History lurasidone 60 mg tablet 60 mg PO QPM see pcp 5 06/15/25 History topiramate 25 mg tablet 25 mg PO QHS migraine 06/15/25 History dexamethasone 0.75 mg tablet 1.5 mg PO Q24H 06/16/25 0 06/15/25 History Allergy/AdvReac Type Severity Reaction Status Date / Time acetaminophen (From Excedrin Allergy Anaphylaxis Verified 06/16/25 10:09 Migraine) aspirin (From Excedrin Allergy Anaphylaxis Verified 06/16/25 10:09 Migraine) azithromycin (From Zithromax Allergy Anaphylaxis Verified 06/16/25 10:09 Z-Trinidad) bacitracin (From Neosporin Allergy Swelling Verified 06/16/25 10:09 ([id number])) bacitracin zinc (From Allergy Swelling Verified 06/16/25 10:09 Neosporin ([id number])) caffeine (From Excedrin Allergy Anaphylaxis Verified 06/16/25 10:09 Migraine) latex Allergy Rash Verified 06/16/25 10:09 neomycin sulfate (From Allergy Swelling Verified 06/16/25 10:09 Neosporin ([id number])) polymyxin B (From Neosporin Allergy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 clomipramine, Latuda, and lorazepam at current doses. Prazosin was recently discontinued due to a fall that was believed to be related to prazosin. Recommended that patient utilize second dose of Ativan before bed instead of during the day to helptarget anxiety before bed which has been leading to poor sleep. Recommend weekly trauma-based therapy. [facility] did not work out. Alternative resources provided. MEDICATION CHANGES: Current medication regimen unchanged. Risks [...] along with medications may alter their effectiveness. Patient denies any involuntary movement related side effects. Follow Up: 2 months I spent a total of 36 minutes on the date of the service which included preparing to see the patient, totr-vx-[id number] patient care, completing clinical documentation, and counseling and educating the patient/family/caregiver, ordering medications/labs. ADD ON PSYCHOTHERAPY CODE : No SIGNATURE: Kenisha Daily APRN.CNP PATIENT NAME: Sonia Szymanski DATE: May 22, 2024 TIME: 1:00 PM documented in this encounterS[facility]24 Hospital Discharge instructions Patient Education 05/16/2024 16:43:20 Gastritis, Adult, Bypi-xi-Hfve Gastritis, Adult Gastritis is swelling (inflammation) of the stomach. Gastritis can develop quickly (acute). It can also develop slowly over time (chronic). It is important to get help for this condition. If you do not get help, your stomach can bleed, and you can get sores (ulcers) in your stomach. What are the causes? This condition may be caused by: Germs that get to your stomach. Drinking too much alcohol. Medicines you are taking. Too much acid in the stomach. A disease of the intestines or stomach. Stress. An allergic reaction. Crohn's disease. Some cancer treatments (radiation). Sometimes the cause of this condition is not known. What are the signs or symptoms? Symptoms of this condition include: Pain in your stomach. A burning feeling in your stomach. Feeling sick to your stomach (nauseous). Throwing up (vomiting). Feeling too full after you eat. Weight loss. Bad breath. Throwing up blood. Blood in your poop (stool). How is this diagnosed? This condition may be diagnosed with: Your medical history and symptoms. A physical exam. Tests. These can include: ?Blood tests. ?Stool tests. ?A procedure to look inside your stomach (upper endoscopy). ?A test in which a sample of tissue is taken for testing (biopsy). How is this treated? Treatment for this condition depends on what caused it. You may be given: Antibiotic medicine, if your condition was caused by germs. H2 blockers and similar medicines, if your condition was caused by too much acid. Follow these instructions at home: Medicines Take gagt-gkw-gptwtrl and prescription medicines only as told by your doctor. If you were prescribed an antibiotic medicine, take it as told by your doctor. Do not stop taking it even if you start to feel better. Eating and drinking Eat small meals often, instead of large meals. Avoid foods and drinks that make your symptoms worse. Drink enough fluid to keep your pee (urine) pale yellow. Alcohol use Do not drink alcohol if: ?Your doctor tells you not to drink. ?You are , may be , or are planning to become . If you drink alcohol: ?Limit your use to: ?0 1 drink a day for women. ?0 2 drinks a day for men. ?Be aware of how much alcohol is in your drink. In the [place] one drink equals one 12 oz bottle of beer (355 mL), one 5 oz glass of wine (148 mL), or one 1 oz glass of hard liquor (44 mL). General instructions Talk with your doctor about ways to manage stress. You can exercise or do deep breathing, meditation, or yoga. Do not smoke or use products that have nicotine or tobacco. If you need help quitting, ask your doctor. Keep all follow-up visits as told by your doctor. This is important. Contact a doctor if: Your symptoms get worse. Your symptoms go away and then come back. Get help right away if: You throw up blood or something that looks like coffee grounds. You have black or dark red poop. You throw up any time you try to drink fluids. Your stomach pain gets worse. You have a fever. You do not feel better after one week. Summary Gastritis is swelling (inflammation) of the stomach. You must get help for this condition. If you do not get help, your stomach can bleed, and you can get sores (ulcers). This condition is diagnosed with medical history, physical exam, or tests. You can be treated with medicines for germs or medicines to block too much acid in your stomach. This information is not intended to replace advice given to you by your health care provider. Make sure you discuss any questions you have with your health care provider. Document Released: 03/27/2009 Document Revised: 02/26/2019 Document Reviewed: 02/26/2019 [employer] Patient Education 2020 [employer]. Follow Up Care 05/11/2024 13:45:06 With:[facility] Address:Unknown When:Within 1 Week(s) Comments:Please call the office to schedule a hospital follow-up appointment. With:ISAIAS BRADLEY MD Address: [facility] [address] [place] [address]- When:1-2 days Comments:Please call the office to schedule a hospital follow-up appointment. [facility] 07-25-2024 Note. MICRO - Microbiology PROCEDURE: Blood Culture (bacterial) [*1] SOURCE: Blood BODY SITE: COLLECTED DATE/TIME: 05/10/2024 23:01 EDT RECEIVED DATE/TIME: 05/11/2024 16:42 EDT START DATE/TIME: 05/11/2024 16:42 EDT FREE TEXT SOURCE: FINAL REPORTS Final Report [] Verified Date/Time/Personnel: 05/16/2024 16:59 EDT Blood Culture: No Growth at 5 days. PRELIMINARY REPORTS Preliminary Report [] Verified Date/Time/Personnel: 05/11/2024 17:59 EDT Culture has been received in lab and is no growth to date. Routine cultures are held for 5 days. Performing Locations *1: This test was performed at: [address], [address]- , [facility]05-16-2024 Note. MICRO - Microbiology PROCEDURE: Blood Culture (bacterial) [*1] SOURCE: Blood BODY SITE: COLLECTED DATE/TIME: 05/10/2024 21:00 EDT RECEIVED DATE/TIME: 05/11/2024 16:41 EDT START DATE/TIME: 05/11/2024 16:41 EDT FREE TEXT SOURCE: FINAL REPORTS Final Report [] Verified Date/Time/Personnel: 05/16/2024 16:59 EDT Blood Culture: No Growth at 5 days. PRELIMINARY REPORTS Preliminary Report [] Verified Date/Time/Personnel: 05/11/2024 17:59 EDT Culture has been received in lab and is no growth to date. Routine cultures are held for 5 days. Performing Locations *1: This test was performed at: [address], [address] [place], [place] [id number] Note Discharge Instructions Thank you for allowing [facility] to assist you with your healthcare needs. The following is importantdischarge information regarding your hospital visit. Your Care Team ISAIAS BRADLEY MD Your Diagnosis Abdominal pain What to do next Instructions From Your Doctor Thank you for choosing [facility] - it has been a pleasure taking part in your medical care. Please follow up with your Primary Care Physician (PCP) as soon as possible after your discharge andany specialists as noted within 1-2 weeks for further evaluation. If your symptoms should persist or worsen, please return immediately to the nearest Emergency Room for further care. If you have any questions about the care you received please call us anytime at [phone]. You were treated forflare up of nausea/vomiting, difficulty swallowing, gastritis found on endoscopy, and elevated liver enzymes. Please continue medications as instructed, do not restart simvastatin until labs completed and clearance to restart per primary care provider. Please continue diet as frequent small low residue meals. Please also follow up with your gastro[facility]ology team at [facility]. To Whom It May Concern, Please excuse Ms. Szymanski from work due to medical illness, hospitalized at [facility] 05/11-05/16/2024. Thank you. Sincerely, Dr. Boone Hospitalist Follow Up Appointments Follow Up with [facility]ology team at [facility] When:In 1 week Additional Information: Please call the office to schedule a hospital follow-up appointment. Follow Up with ISAIAS BRADLEY MD When:Within 1-2 days Where:[address] [place] [address]- Additional Information: Please call the office to schedule a hospital follow-up appointment. The Following Activity and Diet Have Been Ordered for You Discharge Activity - Ordered -- Activity As Tolerated, 05/16/24 14:42:00 EDT Discharge Diet - Ordered -- Type of Diet: Regular Diet, Please continue small frequent low residue meals., 05/16/24 14:42:00EDT The Following Equipment Has Been Ordered for You No qualifying data available. The Following Treatments Have Been Ordered for You Discharge Labs Discharge Outpatient Labwork - Ordered -- cbc, cmp, hypokalemia, elevated LFTs, Hospital follow up, follow-up within: 5-7 days, Results Notify to: ISAIAS BRADLEY MD, 05/16/24 14:42:00 EDT Discharge Radiology No qualifying data available. Other Therapies No qualifying data available. Post Acute Orders No qualifying data available. Someone Will Contact You Regarding These Home Health Referrals No home referrals have been ordered for you. No one will call you. Allergies Excedrin throat swelling Latex hives Neosporin hives Zithromax throat swelling Medications Please ask your primary doctor or pharmacist before taking any other medication not listed, including over the counter drugs, herbal medications, vitamins and or supplements as they may interact withyour home medications. What How Much When Why Instructions Last Dose New acetaminophen-hydrocodone ([place] 325- 5 mg oral tablet) 1 tab(s) by mouth Every 6 hours as needed for for pain Abdominal pain Duration: 3 Days Pickup at [facility] New sucralfate (sucralfate 1 g/ 10 mL oral suspension) 2 teaspoonful(s) by mouth Four (4) times daily-before meals and at bedtime Duration: 14 Days Printed Prescription Unchanged albuterol (Albuterol (Eqv-Ventolin HFA) 90 mcg/ inh inhalation aerosol) 1 puff(s) by inhalation Every 6 hours as needed for as needed for wheezing Unchanged clomiPRAMINE (clomiPRAMINE 50 mg oral capsule) 2 cap by mouth Two (2) times a day Unchanged dexAMETHasone (dexAMETHasone 0.5 mg oral tablet) 1 tab(s) by mouth Two (2) times a day Unchanged eletriptan (eletriptan 40 mg oral tablet) 1 tab(s) by mouth Every day as needed for Pain Unchanged empagliflozin (Jardiance 10 mg oral tablet) 1 tab(s) by mouth Once a day (in the morning) Unchanged erenumab (Aimovig SureClick Autoinjector 70 mg/ mL subcutaneous solution) 70 Milligram Subcutaneous Once a month Unchanged fludrocortisone (fludrocortisone 0.1 mg oral tablet) 1 tab(s) by mouth Once a day Unchanged levothyroxine (levothyroxine 125 mcg (0.125 mg) oral tablet) 1 tab(s) by mouth Once a day Unchanged LORazepam (LORazepam 1 mg oral tablet) 1 tab(s) by mouth Two (2) times a day as needed for as needed for anxiety Unchanged lurasidone (lurasidone 40 mg oral tablet) 1 tab(s) by mouth Once a day Unchanged metoclopramide (metoclopramide 5 mg oral tablet) 1 tab(s) by mouth Every 8 hours as needed for Control symptoms Unchanged pantoprazole (pantoprazole 40 mg oral enteric coated tablet) 1 tab(s) by mouth Once a day Unchanged prazosin (prazosin 2 mg oral capsule) 1 cap by mouth Daily at bedtime Unchanged promethazine (promethazine 25 mg oral tablet) 1 tab(s) by mouth Every 6 hours as needed for as needed for nausea/vomiting Unchanged topiramate (topiramate 25 mg oral tablet) 1 tab(s) by mouth Daily at bedtime Pharmacy Information [facility]: [address] [place], [place] [id number] [phone] What How Much When Comments Stop Taking atorvastatin (atorvastatin 10 mg oral tablet) 1 tab(s) by mouth Daily at bedtime Please take this list to your next doctor s visit. Bring all medications you take, including over the counter medications, herbals and other supplements with you to your doctor s visit. Patients and families are reminded to discard old lists and to update any records with all medication providers or retail pharmacies. Medication Leaflets sucralfate (oral) (domenica PERRY fate) Carafate What is the most important information I should know about sucralfate? The liquid form of sucralfate should never be injected through a needle into the body, or mayoccur. What is sucralfate? Sucralfate is used short-term (up to 8 weeks) to treat an active duodenal ulcer. Sucralfate works mainly in the lining of the stomach and is not highly absorbed into the body. Thismedicine adheres to ulcer sites and protects them from acids, enzymes, and bile salts. Sucralfate can heal an active ulcer, but it will not prevent future ulcers from occurring. Sucralfate may also be used for purposes not listed in this medication guide. What should I discuss with my healthcare provider before taking sucralfate? You should not use sucralfate if you are allergic to it. Tell your doctor if you have ever had: diabetes; kidney disease (or if you are on dialysis); or trouble swallowing tablets. Older adults may be more sensitive to the effects of this medicine. Tell your doctor if you are or . Do not give this medicine to a child without medical advice. How should I take sucralfate? Follow all directions on your prescription label and read all medication guides or instruction sheets. Use the medicine exactly as directed. Take sucralfate on an empty stomach. Shake the oral suspension (liquid) before you measure a dose. Use the dosing syringe provided, or use a medicine dose-measuring device (not a kitchen spoon). If you are diabetic, check your blood sugar regularly. Your doctor may adjust your dose based on your blood sugar levels. The liquid from of this medicine should never be injected through a needle into the body, or may occur. Sucralfate oral suspension is to be taken only by mouth. It may take 2 to 8 weeks before you receive the full benefit of taking sucralfate. Use this medicine for the full prescribed length of time, even if your symptoms quickly improve. Your doctor may want you to keep taking sucralfate at a lower dose once your active ulcer has healed. Follow your doctor's dosing instructions very carefully. Store at room temperature away from moisture and heat. Do not allow the liquid medicine to freeze. What happens if I miss a dose? Take the medicine as soon as you can, but skip the missed dose if it is almost time for your next dose. Do not take two doses at one time. What happens if I overdose? Seek emergency medical attention or call the Poison Help line at . What should I avoid while taking sucralfate? Avoid taking any other medications within 2 hours before or after you take sucralfate. Sucralfate can make it harder for your body to absorb other medications you take by mouth. Ask your doctor before using an antacid, and use only the type your doctor recommends. Some antacids can make it harder for sucralfate to work in your stomach. Avoid taking an antacid within 30 minutes before or after taking sucralfate. What are the possible side effects of sucralfate? Get emergency medical help if you have signs of an allergic reaction: hives; difficult breathing; swelling of your face, lips, tongue, or throat. Common side effects may include: constipation, diarrhea; nausea, vomiting, gas, indigestion; itching, rash; dizziness, drowsiness; sleep problems (insomnia); headache; or back pain. This is not a complete list of side effects and others may occur. Call your doctor for medical advice about side effects. You may report side effects to FDA at 5-584-VGP-0361. What other drugs will affect sucralfate? Other drugs may affect sucralfate, including prescription and ybzv-cid-kmrvabi medicines, vitamins,and herbal products. Tell your doctor about all your current medicines and any medicine you start or stop using. Where can I get more information? Your pharmacist can provide more information about sucralfate. Remember, keep this and all other medicines out of the reach of children, never share your medicines with others, and use this medication only for the indication prescribed. Every effort has been made to ensure that the information provided by [employer]. [employer]') is accurate, up-to-date, and complete, but no guarantee is made to that effect. Drug information contained herein may be time sensitive. [employer]) information has been compiled for use by healthcare practitioners and consumers in the [place] and therefore [employer] does not warrant that uses outside of the [place] are appropriate, unless specifically indicated otherwise. [employer] drug information does not endorse drugs, diagnose patients or recommend therapy. [employer] drug information isan informational resource designed to assist licensed healthcare practitioners in caring for their p atients and/or to serve consumers viewing this service as a supplement to, and not a substitute for, the expertise, skill, knowledge and judgment of healthcare practitioners. The absence of a warningfor a given drug or drug combination in no way should be construed to indicate that the drug or drug combination is safe, effective or appropriate for any given patient. [employer] does not assume any responsibility for any aspect of healthcare administered with the aid of information [employer] provides. The information contained herein is not intended to cover all possible uses, directions, precautions, warnings, drug interactions, allergic reactions, or adverse effects. If you have questions about the drugs you are taking, check with your doctor, nurse or pharmacist. Copyright 4224-5383 [employer]. Version: .. Revision Date: 12/24/2020. acetaminophen and hydrocodone (a SEET a MIN oh fen and zuly LEAL done) Verdrocet What is the most important information I should know about acetaminophen and hydrocodone? MISUSE OF OPIOID MEDICINE CAN CAUSE ADDICTION, OVERDOSE, OR . Keep the medication in a place where others cannot get to it. Taking opioid medicine during may cause life-threatening withdrawal symptoms in the . Fatal side effects can occur if you use opioid medicine with alcohol, or with other drugs that cause drowsiness or slow your breathing. Stop taking this medicine and call your doctor right away if you have skin redness or a rash that spreads and causes blistering and peeling. What is acetaminophen and hydrocodone? Acetaminophen and hydrocodone is a combination medicine used to relieve moderate to severe pain. Acetaminophen and hydrocodone contains an opioid medicine, and may be habit-forming. Acetaminophen and hydrocodone may also be used for purposes not listed in this medication guide. What should I discuss with my healthcare provider before taking acetaminophen and hydrocodone? You should not use this medicine if you are allergic to acetaminophen or hydrocodone, or if you have: severe asthma or breathing problems; or a blockage in your stomach or intestines. Tell your doctor if you have ever had: breathing problems, sleep apnea (breathing stops during sleep); liver disease; a drug or alcohol addiction; kidney disease; a head injury or seizures; urination problems; or problems with your thyroid, pancreas, or gallbladder. If you use opioid medicine while you are , your baby could become dependent on the drug. This can cause life-threatening withdrawal symptoms in the baby after it is born. Babies born dependent on opioids may need medical treatment for several weeks. Ask a doctor before using opioid medicine if you are . Tell your doctor if you notice severe drowsiness or slow breathing in the nursing baby. How should I take acetaminophen and hydrocodone? Follow all directions on your prescription label. Never take this medicine in larger amounts, or for longer than prescribed. An overdose can damage your liver or cause . Tell your doctor if you feel an increased urge to use more of this medicine. Never share this medicine with another person, especially someone with a history of drug abuse or addiction. MISUSE CAN CAUSE ADDICTION, OVERDOSE, OR . Keep the medicine in a place where others cannot get to it. Selling or giving away this medicine is against the law. Measure liquid medicine carefully. Use the dosing syringe provided, or use a medicine dose-measuring device (not a kitchen spoon). If you need surgery or medical tests, tell the doctor ahead of time that you are using this medicine. You should not stop using this medicine suddenly. Follow your doctor's instructions about tapering your dose. Store at room temperature away from moisture and heat. Keep track of your medicine. You should be aware if anyone is using it improperly or without a prescription. Do not keep leftover opioid medication. Just one dose can cause in someone using this medicine accidentally or improperly. Ask your pharmacist where to locate a drug take-back disposal program.If there is no take-back program, flush the unused medicine down the toilet. What happens if I miss a dose? Since this medicine is used for pain, you are not likely to miss a dose. Skip any missed dose if itis almost time for your next dose. Do not use two doses at one time. What happens if I overdose? Seek emergency medical attention or call the Poison Help line at . An overdose of this medicine can be fatal, especially in a child or other person using the medicine without a prescription. Overdose symptoms may include nausea, vomiting, sweating, severe drowsiness, pinpoint pupils, slow breathing, or no breathing. Your doctor may recommend you get naloxone (a medicine to reverse an opioid overdose) and keep it with you at all times. A person caring for you can give the naloxone if you stop breathing or don't wake up. Your caregiver must still get emergency medical help and may need to perform CPR (cardiopulmonary resuscitation) on you while waiting for help to arrive. Anyone can buy naloxone from a pharmacy or local health department. Make sure any person caring foryou knows where you keep naloxone and how to use it. What should I avoid while taking acetaminophen and hydrocodone? Avoid driving or operating machinery until you know how this medicine will affect you. Dizziness ordrowsiness can cause falls, accidents, or severe injuries. Do not drink alcohol. Dangerous side effects or could occur. Ask a doctor or pharmacist before using any other medicine that may contain acetaminophen (sometimes abbreviated as APAP). Taking certain medications together can lead to a fatal overdose. What are the possible side effects of acetaminophen and hydrocodone? Get emergency medical help if you have signs of an allergic reaction: hives; difficulty breathing; swelling of your face, lips, tongue, or throat. Opioid medicine can slow or stop your breathing, and may occur. A person caring for you should give naloxone and/or seek emergency medical attention if you have slow breathing with long pauses,blue colored lips, or if you are hard to wake up. In rare cases, acetaminophen may cause a severe skin reaction that can be fatal. This could occur even if you have taken acetaminophen in the past and had no reaction. Stop taking this medicine and call your doctor right away if you have skin redness or a rash that spreads and causes blistering andpeeling. Call your doctor at once if you have: noisy breathing, sighing, shallow breathing, breathing that stops; a light-headed feeling, like you might pass out; liver problems--nausea, upper stomach pain, tiredness, loss of appetite, dark urine, asa-colored stools, jaundice (yellowing of the skin or eyes); low cortisol levels-- nausea, vomiting, loss of appetite, dizziness, worsening tiredness or weakness; o high levels of serotonin in the body--agitation, hallucinations, fever, sweating, shivering, fast heart rate, muscle stiffness, twitching, loss of coordination, nausea, vomiting, diarrhea. Serious breathing problems may be more likely in older adults and in those who are debilitated or have wasting syndrome or chronic breathing disorders. Common side effects include: dizziness, drowsiness, feeling tired; nausea, vomiting, stomach pain; constipation; or headache. This is not a complete list of side effects and others may occur. Call your doctor for medical advice about side effects. You may report side effects to FDA at 9-522-KKS-5588. What other drugs will affect acetaminophen and hydrocodone? You may have breathing problems or withdrawal symptoms if you start or stop taking certain other medicines. Tell your doctor if you also use an antibiotic, antifungal medication, heart or blood pressure medication, seizure medication, or medicine to treat HIV or hepatitis C. Opioid medication can interact with many other drugs and cause dangerous side effects or . Be sure your doctor knows if you also use: cold or allergy medicines, bronchodilator asthma/COPD medication, or a diuretic ('water pill'); medicines for motion sickness, irritable bowel syndrome, or overactive bladder; other opioids--opioid pain medicine or prescription cough medicine; a sedative like Valium--diazepam, alprazolam, lorazepam, Xanax, Klonopin, Versed, and others; drugs that make you sleepy or slow your breathing--a sleeping pill, muscle relaxer, medicine to treat mood disorders or mental illness; drugs that affect serotonin levels in your body--a stimulant, or medicine for depression, Parkinson's disease, migraine headaches, serious infections, or nausea and vomiting. This list is not complete. Other drugs may affect acetaminophen and hydrocodone, including prescription and lpet-qdw-eqdnrwe medicines, vitamins, and herbal products. Not all possible interactions are listed here. Where can I get more information? Your doctor or pharmacist can provide more information about acetaminophen and hydrocodone. Remember, keep this and all other medicines out of the reach of children, never share your medicines with others, and use this medication only for the indication prescribed. Every effort has been made to ensure that the information provided by [employer] is accurate, up-to-date, and complete, but no guarantee is made to that effect. Drug information contained herein may be time sensitive. [employer] information has been compiled for use by healthcare practitioners and consumers in the [place] and therefore [employer] does not warrant that uses outside of the [place] are appropriate, unless specifically indicated otherwise. [employer] drug information does not endorse drugs, diagnose patients or recommend therapy. [employer] drug information isan informational resource designed to assist licensed healthcare practitioners in caring for their p atients and/or to serve consumers viewing this service as a supplement to, and not a substitute for, the expertise, skill, knowledge and judgment of healthcare practitioners. The absence of a warningfor a given drug or drug combination in no way should be construed to indicate that the drug or drug combination is safe, effective or appropriate for any given patient. [employer] does not assume any responsibility for any aspect of healthcare administered with the aid of information [employer] provides. The information contained herein is not intended to cover all possible uses, directions, precautions, warnings, drug interactions, allergic reactions, or adverse effects. If you have questions about the drugs you are taking, check with your doctor, nurse or pharmacist. Copyright 3247-4980 [employer]. Version: 19.02. Revision Date: 01/30/2024. Education Materials Gastritis, Adult Gastritis is swelling (inflammation) of the stomach. Gastritis can develop quickly (acute). It can also develop slowly over time (chronic). It is important to get help for this condition. If you do not get help, your stomach can bleed, and you can get sores (ulcers) in your stomach. What are the causes? This condition may be caused by: Germs that get to your stomach. Drinking too much alcohol. Medicines you are taking. Too much acid in the stomach. A disease of the intestines or stomach. Stress. An allergic reaction. Crohn's disease. Some cancer treatments (radiation). Sometimes the cause of this condition is not known. What are the signs or symptoms? Symptoms of this condition include: Pain in your stomach. A burning feeling in your stomach. Feeling sick to your stomach (nauseous). Throwing up (vomiting). Feeling too full after you eat. Weight loss. Bad breath. Throwing up blood. Blood in your poop (stool). How is this diagnosed? This condition may be diagnosed with: Your medical history and symptoms. A physical exam. Tests. These can include: ? Blood tests. ? Stool tests. ? A procedure to look inside your stomach (upper endoscopy). ? A test in which a sample of tissue is taken for testing (biopsy). How is this treated? Treatment for this condition depends on what caused it. You may be given: Antibiotic medicine, if your condition was caused by germs. H2 blockers and similar medicines, if your condition was caused by too much acid. Follow these instructions at home: Medicines Take tscb-ajl-huvzidl and prescription medicines only as told by your doctor. If you were prescribed an antibiotic medicine, take it as told by your doctor. Do not stop taking it even if you start to feel better. Eating and drinking Eat small meals often, instead of large meals. Avoid foods and drinks that make your symptoms worse. Drink enough fluid to keep your pee (urine) pale yellow. Alcohol use Do not drink alcohol if: ? Your doctor tells you not to drink. ? You are , may be , or are planning to become . If you drink alcohol: ? Limit your use to: ? 0 1 drink a day for women. ? 0 2 drinks a day for men. ? Be aware of how much alcohol is in your drink. In the [place] one drink equals one 12 oz bottle of beer (355 mL), one 5 oz glass of wine (148 mL), or one 1 oz glass of hard liquor (44 mL). General instructions Talk with your doctor about ways to manage stress. You can exercise or do deep breathing, meditation, or yoga. Do not smoke or use products that have nicotine or tobacco. If you need help quitting, ask your doctor. Keep all follow-up visits as told by your doctor. This is important. Contact a doctor if: Your symptoms get worse. Your symptoms go away and then come back. Get help right away if: You throw up blood or something that looks like coffee grounds. You have black or dark red poop. You throw up any time you try to drink fluids. Your stomach pain gets worse. You have a fever. You do not feel better after one week. Summary Gastritis is swelling (inflammation) of the stomach. You must get help for this condition. If you do not get help, your stomach can bleed, and you can get sores (ulcers). This condition is diagnosed with medical history, physical exam, or tests. You can be treated with medicines for germs or medicines to block too much acid in your stomach. This information is not intended to replace advice given to you by your health care provider. Make sure you discuss any questions you have with your health care provider. Document Released: 03/27/2009 Document Revised: 02/26/2019 Document Reviewed: 02/26/2019 [employer] Patient Education 2020 [employer]. Additional Information VACCINATE! IT SAVES LIVES! Members of the community who have not yet received the COVID-19 vaccine and would like to receive it can visit one of [facility] vaccine clinics. There are many vaccine clinic locations within the [facility]. For locations and available times, please visit https://[email or web address].[place].gov/. It is important to note that some COVID mobile vaccine clinics are held outdoors and may be canceled in rainy or stormy conditions. To learn more about pediatric vaccinations (ages 5-11), we invite you to visit the [facility] webpage. [email or web address] learn more about the COVID-19 vaccine, we invite you to visit the CDC website for a list of frequently asked questions.https://www.cdc.gov/coronavirus/2019-ncov/vaccines/faq.html [facility] Patient Portal Access Instructions: Stay connected with your healthcare team and access your personal medical information anytime with the [facility] Patient Portal. Please follow the directions below to create your [facility] account: 1.Access the email account you provided upon registration to the hospital/physician office.2.Look for an invitation email from [facility].3.Open the email and access the invitation link: AcceptInvitation to [facility].4.Fill in the required addison to create your account. To access your account, visit [email or web address]. Click the blue button labeled "Access Patient Portal" and then log in with the username and password that you created in the steps above. You will be able to view your test results, lab results, a summary of your visits, upcoming appointments and more. There is also a convenient messaging option where you can send secure messages to your p rovider. In addition, you will have the ability to download any documents or summaries to your computer and/or send the information securely to a physician. Remember that your healthcare information is confidential, so carefully consider who you will allowto register on the [facility] Patient Portal for access to your information. You can also access the [facility] on the [facility]. Simply click on "Patient Portal" and then log into your account. If you would like to receive a full copy of your medical records, please contact the [facility] Medical Records Department by calling [phone], Monday through Monday between 8 a.m. and 4:30 p.m. HOW TO SAFELY DISPOSE OF PRESCRIPTION MEDICATIONS Please use one of the following methods to safely dispose of your unused medications. 1.Use a drug disposal kit: the drug disposal pouch allows you to safely discard your old and unuseddrugs. Ask your nurse to give you one when you are discharged.2.Visit a local take-back location: Many local pharmacies and police departments have programs that collect old and unwanted prescriptiondrugs. Call your local pharmacy or go to http://InteliVideo.Codility/1X3Qo5e to find one close to you.3.Make use of household items: Use cat litter or old coffee grounds to dispose medications if other options arenot available. Mix your drugs with these household products, seal them in an airtight container andthrow it into the garbage. Call [facility]: [phone] to be sure your drugs can be disposed of in this way. Some medicines may require a different approach.4.Never flush your medications down the toilet. IF YOU HAVE BEEN PRESCRIBED AN OPIOID FOR PAIN If you have been prescribed an opioid (such as hydrocodone, oxycodone or morphine), it is critical to understand the possible side effects and risks of opioid pain medications. Even when taken as directed, opioids can have several side effects including: Tolerance, meaning you might need to take more of a medication for the same pain relief. Nausea, vomiting and/or constipation. Sleepiness, dizziness, dry mouth, confusion, depression or itching. Physical dependence, meaning you have withdrawal symptoms when a medication is stopped, can develop within a few days. KNOW YOUR RESPONSIBILITIES It is important to know exactly how much and how often to take the opioid pain medications you are prescribed. Never take opioids in higher amounts or more often than prescribed. Do not combine opioids with alcohol or other drugs that cause drowsiness, such as benzodiazepines, also known as benzos, including diazepam and alprazolam, muscle relaxants or sleep aids. Never sell or share prescription opioids. This is illegal. Store opioids in a secure place and out of reach of others (including children, family, friends and visitors). The last page of this document has been signed and retained as a CHART COPY. Signatures Patient Education Materials Gastritis, Adult, Efaz-ku-Ynwb Medication Leaflets sucralfate (oral), acetaminophen and hydrocodone My discharge plan and instructions have been reviewed and explained to me and I,SONIA SZYMANSKI understand my current condition and have read and understand these discharge instructions. I have received a written copy of the plan/instructions. If I have questions, I am aware that I should contact my doctor. 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: Date/Time: Relationship to Patient: Witness Name/Signature: [id number] Discharge summary Date of Service 05/16/2024 Discharge Diagnosis Acute gastritis without bleeding (K29.00 - ICD-10-CM) Primary adrenocortical insufficiency (E27.1 - ICD-10-CM) Syncope and collapse (R55 - ICD-10-CM) Thyrotoxicosis, unspecified without thyrotoxic crisis or storm (E05.90 - ICD-10-CM) Type 2 diabetes mellitus without complications (E11.9 - ICD-10-CM) Tachycardia, unspecified (R00.0 - ICD-10-CM) Right lower quadrant pain (R10.31 - ICD-10-CM) Nausea with vomiting, unspecified (R11.2 - ICD-10-CM) Gastroparesis (K31.84 - ICD-10-CM) Fatty (change of) liver, not elsewhere classified (K76.0 - ICD-10-CM) Hypothyroidism, unspecified (E03.9 - ICD-10-CM) Obesity, unspecified (E66.9 - ICD-10-CM) Body mass index [BMI] 34.0-34.9, adult (Z68.34 - ICD-10-CM) Nausea ([id number] - PNED) Vomiting ([id number] - PNED) Weakness ([id number] - PNED) Intractable nausea and vomiting, improved Right upper quadrant abdominal pain Concern for gastroparesis flare Hepatic steatosis Transaminitis - improving Adrenal insufficiency Dizziness and lightheadedness secondary to above Hypothyroid Hypokalemia History of migraine headaches Additional Orders: Other status: CBC,05/16/24 5:00:00 EDT, Next AM Draw (one day only), Blood, Once, Stop date 05/16/24 5:00:00 EDT(Complete) Other status: CMP,05/16/24 5:00:00 EDT, Next AM Draw (one day only), Blood, Once, Stop date 05/16/24 5:00:00 EDT(Complete) Ordered: Discharge,05/16/24 14:42:00 EDT, Discharged to: Home Ordered: Discharge Activity,Activity As Tolerated, 05/16/24 14:42:00 EDT Ordered: Discharge Diet,Type of Diet: Regular Diet, Please continue small frequent low residue meals., 05/16/24 14:42:00 EDT Ordered: Discharge Outpatient Labwork,cbc, cmp, hypokalemia, elevated LFTs, Hospital follow up, follow-up within: 5-7 days, Results Notify to: ISAIAS BRADLEY MD, 05/16/24 14:42:00 EDT Other status: Magnesium Level,05/16/24 5:01:00 EDT, Next AM Draw (one day only), Blood, Once, Stop date 05/16/24 5:01:00 EDT(Complete) Other status: Potassium Level,05/16/24 12:00:00 EDT, Timed Study (collect at specified time), Blood, Once, Stop date 05/16/24 12:00:00 EDT(Complete) Discontinued: atorvastatin 10 mg oral tablet,Dose : 10 mg = 1 tab(s), Oral, qHS, 0 Refill(s) Other status: magnesium sulfate for IV bolus,Start: 05/16/24 8:00:00 EDT, 1 gram(s), Dose = 100 mL,PMX bag, IV Piggyback, Once, Stop: 05/16/24 8:00:00 EDT, Rate: 100 mL/hr, Infuse over: 1 hour(s), 0, 05/16/24 7:48:00 EDT(Complete) Other status: potassium chloride,Start: 05/16/24 8:00:00 EDT, Dose = 40 mEq, = 2 tab(s), Oral, Once, Stop: 05/16/24 8:00:00 EDT, with food/meal, 05/16/24 7:48:00 EDT(Complete) Ordered: potassium chloride,Start: 05/16/24 14:30:00 EDT, Dose = 20 mEq, = 1 tab(s), Oral, Once, Stop: 05/16/24 14:30:00 EDT, with food/meal, 05/16/24 14:30:00 EDT Ordered: sucralfate 1 g/10 mL oral suspension,Dose : 1 gram(s) = 2 teaspoonful(s), Oral, achs, # 400 mL, 0 Refill(s) Hospital Course 29-year-old female PMH adrenal insufficiency on Florinef and dexamethasone, hypothyroidism, GERD, obesity. Patient presented 05/11 with intractable nausea and vomiting, lightheadedness, and diarrhea for 2 days. Patient with episode of coffee-ground emesis in ED. GI was consulted, abdominal ultrasound on 05/13/2024 notable for: Surgically absent gallbladder, diffuse hepatic steatosis but no evidence of intra or extrahepatic biliary dilation. EGD on 05/14/2024 notable for: Moderate to severe erosive gastritisbut no ulcers. Esophagus and duodenum appeared normal. Biopsies were obtained for evaluation of H. pylori.Appreciate GI input Carafate added 1 g nightly recommending a 14-day course at discharge, twice daily PPI while hospitalized and transition to once daily PPI dosing at discharge. Patient education at bedside to avoid NSAIDs. Concern for gastroparesis flare likely contributing to ongoing nausea and abdominal discomfort, however likely multifactorial in etiology. GI also recommending small frequent low residue meals secondary to the gastroparesis history. Diet advanced per GI, nausea/vomiting improved. Today, patient is doing about the same. Continues to struggle with persistent RUQ abdominal pain, nausea and vomiting. Her oral intake has been limited. Etiology of persistent pain likely multifactorial. Certainly may be functional component. Underlying gastritis could be contributing as well as possible flare of gastroparesis. She is passing flatus and had a loose stool yesterday. She is currently afebrile, hemodynamically stable and on room air. Reviewed EGD findings and a.m. lab and a.m. labresults with her. Hemoglobin remained stable at 11.5. LFTs have improved; T. bili 1.3, AST 47, ALT 94 and alk phos 102. Persistent elevated LFTs likely 2/2 hepatic steatosis as per GI team. There has been no evidence of overt GI bleeding. Patient required stress dose steroids due to acute severe illness/history of adrenal insufficiency,patient not able to tolerate oral intake at the time of admission, now back to home dose steroids. Patient seen/examined at bedside today. Chart reviewed. Discussed with medical staff. Denies chest pain, shortness of breath. Patient states that overall improvement in abdominal pain, no nausea/vomiting overnight, soft brown BM overnight. Patient tolerating oral intake and ambulating in the hospital room states overall feels much improved from the time of admission and ready to go home today. Discussed with patient regarding recommended follow-up with providers and medication list at discharge. Discussed warning signs that should prompt patient to return to the emergency department or seek immediate medical attention, including but not limited to worsening of symptoms. Patient states understanding and appreciation for care. I have reviewed the [place] Automated Rx Reporting System (OARRS) report for this patient for refill pattern and other prescriber involvement as part of the appropriate surveillance for the provision ofacute and chronic controlled medications. The report was requested and reviewed on the date of thisentry, and was considered in the prescribing process. Patient has been assessed using the Opioid Risk Tool in the setting of acute pain. The patient has been instructed to use non-opioid analgesic therapy first and if that is not effective for reducing pain, a temporary prescription for an opioid analgesic has been provided. Benefits and risks, such as dependency, adverse side effects, and overdose discussed. Allergies Excedrin throat swelling Latex hives Neosporin hives Zithromax throat swelling Procedures Procedure: Upper endoscopy Indication: Intractable nausea and vomiting Provider: Papa Ayala MD Patient profile: Patient presented to our hospital with intractable nausea vomiting. She currently reports improvement in her symptoms with the antacid therapy and antiemetics. She recalls undergoingendoscopy within the last couple of years and also being diagnosed with gastroparesis at [facility]. Medicines: Monitored anesthesia care Complications: No immediate complications. Procedure: Prior to the procedure, history and physical was performed and patient medications allergies and sensitivities were reviewed. The risks and benefits of the procedure and the sedation options and risks were discussed with the patient. All questions were answered and informed consent was obtained. Patient identification and proposed procedure were verified prior to the procedure by the physician and the nurse. After obtaining informed consent the endoscopy was passed under direct vision. Throughout the procedure the patient's blood pressure, pulse and oxygen saturations were monitored continuously. The procedure was accomplished without difficulty. The patient tolerated the procedure well. The endoscope was introduced through the mouth, and advanced to the second part of the duodenum. Upon discharge from the endoscopy area, the patient will be recovered per established procedures and protocols. Findings: Esophagus: Normal esophagus . No findings concerning for esophagitis. Stomach: Significant congestion and erythema, with some superficial erosions consistent with moderate to severe erosive gastritis. Biopsies were obtained for the evaluation of H. pylori. Duodenum: Within normal limits Impression: Moderate to severe gastritis-which could very well explain patient's current symptoms of nausea vomiting. S/p biopsies Recommendations: Discontinue NSAID use. Await pathology results. Full liquid diet and advance as tolerated. Continue current GI medications. Will add Carafate ACHS. She reports improvement in symptoms. Will continue to follow. Anticipate discharge in the next 24 to 48 hours. 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 Findings and recommendations were reviewed with patient's Triston at [phone] [1] Consults Consult to Physician - Ordered -- 05/12/24 12:19:00 EDT, NEYMAR AYALA MD, Routine, Patient with intractable nausea and vomiting, coffee-ground emesis Imaging Results and Diagnostics US Abdomen Limited Result Date: May 13, 2024 Verified By: WERNER LAMBERT DO CLINICAL STATEMENT: IMPRESSION: 1. Diffuse fatty infiltration of the liver.2. Tenderness on direct examination over thepancreas. XR Enteric Tube Placement Result Date: May 12, 2024 Verified By: JOSH PRO, FABRICE Cardenas CLINICAL STATEMENT: IMPRESSION: 1. Enteric tube terminates within the proximal stomach. 2. Hazy airspace opacities within the lungs bilaterally, greater on theright, may represent developing infiltrates versus superimposition of softtissue. A two view chest radiograph should be performed when the patient'scondition permits. CT Abdomen/Pelvis w/Contrast Result Date: May 11, 2024 Verified By: ROBY LANDAVERDE MD CLINICAL STATEMENT: IMPRESSION: No acute intra-abdominal abnormality identified. Infiltrative stranding of the right anterior abdominal subcutaneous tissueswith overlying skin thickening, probably injection site granuloma. Marked hepatic steatosis. I have personally reviewed the images of this examination and agree with theresident's findings and interpretation. Physical Exam Vitals and Measurements T: 36.4 C (Oral) TMIN: 36.3 C (Oral) TMAX: 36.8 C (Oral) HR: 70 RR: 18 BP: 111/67 SpO2: 91% Weight Dosing Weight: 93 kg (05/12/24) Dosing Weight: 93 kg (05/11/24) General: awake, alert, NAD HEENT: No Pallor, No Icterus Cardiac: S1, S2, regular Lungs: clear to auscultation Abdomen: Soft, improved RUQ tenderness, no guarding or rigidity, bowel sounds present Extremities: extremities warm/dry Neuro: AAOx4 Pending Labs and Studies Follow up lab work requested as outlined above (restart atorvastatin when LFTs normalized) H. pylori testing currently pending Code Status Code Status - Ordered -- 05/11/24 16:59:00 EDT, Full Code, Constant Order Admission Date 05/11/2024 Discharge Date 05/16/2024 Patient Instructions Thank you for choosing [facility] - it has been a pleasure taking part in your medical care. Please follow up with your Primary Care Physician (PCP) as soon as possible after your discharge andany specialists as noted within 1-2 weeks for further evaluation. If your symptoms should persist or worsen, please return immediately to the nearest Emergency Room for further care. If you have any questions about the care you received please call us anytime at [phone]. You were treated forflare up of nausea/vomiting, difficulty swallowing, gastritis found on endoscopy, and elevated liver enzymes. Please continue medications as instructed, do not restart simvastatin until labs completed and clearance to restart per primary care provider. Please continue diet as frequent small low residue meals. Please also follow up with your gastroenterology team at [facility]. To Whom It May Concern, Please excuse Ms. Szymanski from work due to medical illness, hospitalized at [facility] 05/11-05/16/2024. Thank you. Sincerely, Dr. Boone Hospitalist Medications New Prescription acetaminophen-hydrocodone ([place] 325- 5 mg oral tablet)1 tab(s) by mouth every 6 hours as needed for pain for 3 Days. Refills: 0. sucralfate (sucralfate 1 g/10 mL oral suspension)2 teaspoonful(s) by mouth four (4) times daily-before meals and at bedtime for 14 Days. Refills: 0. Unchanged albuterol (Albuterol (Eqv-Ventolin HFA) 90 mcg/inh inhalation aerosol)1 puff(s) by inhalation every6 hours as needed as needed for wheezing. clomiPRAMINE (clomiPRAMINE 50 mg oral capsule)2 cap by mouth two (2) times a day. dexAMETHasone (dexAMETHasone 0.5 mg oral tablet)1 tab(s) by mouth two (2) times a day. eletriptan (eletriptan 40 mg oral tablet)1 tab(s) by mouth every day as needed Pain. empagliflozin (Jardiance 10 mg oral tablet)1 tab(s) by mouth once a day (in the morning). erenumab (Aimovig SureClick Autoinjector 70 mg/mL subcutaneous solution)70 Milligram Subcutaneous once a month. fludrocortisone (fludrocortisone 0.1 mg oral tablet)1 tab(s) by mouth once a day. levothyroxine (levothyroxine 125 mcg (0.125 mg) oral tablet)1 tab(s) by mouth once a day. LORazepam (LORazepam 1 mg oral tablet)1 tab(s) by mouth two (2) times a day as needed as needed foranxiety. lurasidone (lurasidone 40 mg oral tablet)1 tab(s) by mouth once a day. metoclopramide (metoclopramide 5 mg oral tablet)1 tab(s) by mouth every 8 hours as needed Control symptoms. pantoprazole (pantoprazole 40 mg oral enteric coated tablet)1 tab(s) by mouth once a day. prazosin (prazosin 2 mg oral capsule)1 cap by mouth daily at bedtime. promethazine (promethazine 25 mg oral tablet)1 tab(s) by mouth every 6 hours as needed as needed for nausea/vomiting. topiramate (topiramate 25 mg oral tablet)1 tab(s) by mouth daily at bedtime. Discontinued atorvastatin (atorvastatin 10 mg oral tablet)1 tab(s) by mouth daily at bedtime. Follow Up Follow Up with Gastroenterology team at [facility] When:In 1 week Additional Information: Please call the office to schedule a hospital follow-up appointment. Follow Up with ISAIAS BRADLEY MD When:Within 1-2 days [facility] [address] [place] [address]- Additional Information: Please call the office to schedule a hospital follow-up appointment. Follow Up Appointments No qualifying data available. Follow Up Labs/Studies Discharge Labs Discharge Outpatient Labwork - Ordered -- cbc, cmp, hypokalemia, elevated LFTs, Hospital follow up, follow-up within: 5-7 days, Results Notify to: ISAIAS BRADLEY MD, 05/16/24 14:42:00 EDT Discharge Studies No Follow-up Studies Discharge Diet Discharge Diet - Ordered -- Type of Diet: Regular Diet, Please continue small frequent low residue meals., 05/16/24 14:42:00EDT Discharge Activity Discharge Activity - Ordered -- Activity As Tolerated, 05/16/24 14:42:00 EDT Condition on Discharge Fair, improved Discharge Disposition Home Information Provided To Patient and medical staff Time Spent 36 minutes [1] Procedure Note; NEYMAR AYALA MD 05/14/2024 11:27 EDT Digitally Signed by KASSANDRA BOONE MD on 05/16/2024 03:26 PM [id number] Note Date of Service 05/15/2024 Chief Complaint nausea/vomiting, RUQ pain, adrenal insufficiency Subjective Patient seen/examined at bedside today. Chart reviewed. Discussed with medical staff. Denies chest pain, shortness of breath. Endorses persistent RUQ abdominal pain, nausea/vomiting, some improvement with antiemetics. Objective Vitals and Measurements T: 36.4 C (Oral) TMIN: 36.2 C (Oral) TMAX: 36.7 C (Oral) HR: 79 (Monitored) RR: 18 BP: 107/73 SpO2:91% Intake and Output 7AM Yesterday to 7AM Today Intake and Output (Last 24 hours) Intake Oral Intake 160.00 Output Stool Count 1.00 Urine Count 6.00 Total Summary Total Intake 160.00 Total Output 0.00 Fluid Balance 160.00 Physical Exam General: awake, alert, sitting in bed HEENT: No Pallor, No Icterus Cardiac: S1, S2, regular Lungs: clear to auscultation Abdomen: Soft, tender RUQ, no guarding or rigidity, bowel sounds present Extremities: extremities warm/dry Neuro: AAOx4 Weight Dosing Weight: 93 kg (05/12/24) Dosing Weight: 93 kg (05/11/24) Medications Medications (20) Active Scheduled: (11) clomipramine 50 mg capsule 100 mg 2 cap(s), Oral, BID dexamethasone 0.5 mg tablet 0.5 mg 1 tab(s), Oral, BID fludrocortisone 0.1 mg Tablet 0.1 mg 1 tab(s), Oral, qDay insulin lispro 100 units/mL Soln (3 mL) Give 0-5 units/dose, Subcutaneous, TIDAC levothyroxine 125 mcg tablet 125 mcg 1 tab(s), Oral, qDay lurasidone 40 mg tablet 40 mg 1 tab(s), Oral, qDay metoclopramide 5 mg tablet 5 mg 1 tab(s), Oral, acSup pantoprazole 40 mg VIAL 40 mg, IV Push, BIDAC prazosin 2 mg capsule 2 mg 1 cap(s), Oral, qHS sucralfate 1 gm/10 mL Suspension 1 gram(s) 10 mL, Oral, achs topiramate 25 mg Tablet 25 mg 1 tab(s), Oral, qHS Continuous: (1) NS (0.9% nacl) 1,000 mL 1,000 mL, Intravenous, 100 mL/hr PRN: (8) acetaminophen 325 mg Tablet 650 mg 2 tab(s), Oral, q4h albuterol - ipratropium 2.5 mg-0.5 mg/3 mL Inhal [place] UD 3 mL, Inhalation, q4hRT albuterol 0.083% Soln UD (2.5mg/3 mL) 2.5 mg 3 mL, Inhalation, q6hRT dextrose 50% Solution Disp syringe 50 mL 12.5 gram(s) 25 mL, IV Push, AsDirected HYDROmorphone 0.5 mg/0.5 mL PF syringe 0.5 mg 0.5 mL, IV Push, q4h LORAZEPam 1 mg Tablet 1 mg 1 tab(s), Oral, BID melatonin 3 mg tablet 3 mg 1 tab(s), Oral, qHS ondansetron 2 mg/ 1 mL 2 mL INJ 4 mg 2 mL, IV Push, q6h Lab Results 05/15 05:55 WBC: 7.7 Hgb: 11.5 L Hct: 36.4 Platelet: 321 Neutrophil %: 50.5 Glucose Level: 75 Sodium Level: 142 Potassium Level: 3.2 L BUN: 5.0 L Creatinine Lvl (s): 0.81 Imaging Results and Diagnostics US Abdomen Limited Result Date: May 13, 2024 Verified By: WERNER LAMBERT DO CLINICAL STATEMENT: IMPRESSION: 1. Diffuse fatty infiltration of the liver.2. Tenderness on direct examination over thepancreas. XR Enteric Tube Placement Result Date: May 12, 2024 Verified By: JOSH PRO, FABRICE Cardenas CLINICAL STATEMENT: IMPRESSION: 1. Enteric tube terminates within the proximal stomach. 2. Hazy airspace opacities within the lungs bilaterally, greater on theright, may represent developing infiltrates versus superimposition of softtissue. A two view chest radiograph should be performed when the patient'scondition permits. CT Abdomen/Pelvis w/Contrast Result Date: May 11, 2024 Verified By: ROBY LANDAVERDE MD CLINICAL STATEMENT: IMPRESSION: No acute intra-abdominal abnormality identified. Infiltrative stranding of the right anterior abdominal subcutaneous tissueswith overlying skin thickening, probably injection site granuloma. Marked hepatic steatosis. I have personally reviewed the images of this examination and agree with theresident's findings and interpretation. EKG No qualifying data available. Assessment/Plan Intractable nausea and vomiting Right upper quadrant abdominal pain Concern for gastroparesis flare Hepatic steatosis Transaminitis Adrenal insufficiency Dizziness and lightheadedness secondary to above Hypothyroid History of migraine headaches PLAN: 29-year-old female PMH adrenal insufficiency on Florinef and dexamethasone, hypothyroidism, GERD, obesity. Patient presented 05/11 with intractable nausea and vomiting, lightheadedness, and diarrhea for 2 days. Patient with episode of coffee-ground emesis in ED. GI was consulted, EGD completed with mild/moderate gastritis, biopsies obtained H. pylori testing currently pending. Appreciate GI input Carafate added 1 g nightly recommending a 14-day course at discharge, twice daily PPI while hospitalized and transition to once daily PPI dosing at discharge. Extensive discussion with patient at bedside today regarding limiting narcotic use in the setting of gastroparesis history likely contributing to ongoing nausea and abdominal discomfort, however likely multifactorial in etiology. GI also recommending small frequent low residue meals secondary to the gastroparesis history. Diet advanced per GI, will monitor. Patient was started on stress dose steroids due to acute severe illness/history of adrenal insufficiency, patient not able to tolerate oral intake at the time of admission, now titrating back to homedose. AM labs DVT prophylaxis Code status: Full Code Prognosis guarded The above discussed with the patient at bedside who states understanding and agreement with plan. Discussed with medical staff. Questions sought and answered. Anticipated Date of Discharge 1-2 days pending clinical course Digitally Signed by KASSANDRA BOONE MD 05/15/2024 04:46 PM [id number] Progress note Date of Service 05/15/2024 Subjective Patient seen and examined sitting upright in bed. Patient reports persistent RUQ abdominal pain andnausea and vomiting. States that she is not tolerating much in the way of oral intake. She is passing gas and had a loose bowel movement yesterday. Denies evidence of overt GI bleeding, she has had no hematemesis, melena or bright red blood per rectum. Reviewed EGD findings with her. Objective Vitals and Measurements T: 36.2 C (Oral) TMIN: 36.2 C (Oral) TMAX: 36.7 C (Oral) HR: 75 (Monitored) RR: 18 BP: 123/75 SpO2:95% Intake and Output 7AM Yesterday to 7AM Today Intake and Output (Last 24 hours) Intake Oral Intake 160.00 Output Stool Count 1.00 Urine Count 6.00 Total Summary Total Intake 160.00 Total Output 0.00 Fluid Balance 160.00 Physical Exam General Appearance: Patient is alert, well-appearing, in no acute distress. Appropriate mood and affect. HEENT: Head is normocephalic and atraumatic. Conjunctivae are clear without exudates or hemorrhage sclera is nonicteric. Nasal mucosa is pink and moist. Oral mucosa is pink and moist. The pharynx isnormal in appearance. Neck supple. Trachea midline. Neck supple. Trachea midline Cardiac: Heart rate and rhythm are normal. S1 and S2 are heard and are of normal intensity. Lungs: No signs of respiratory distress. Lung sounds are clear in all lobes bilaterally without rales, rhonchi, or wheezes. Abdomen: Abdomen is soft, obese, symmetric and nontender without distention. Umbilicus is midline without herniation. Bowel sounds are present in all 4 quadrants. Extremities: No edema noted. Pulses palpable. Neurological: The patient is alert awake and oriented to person,place, and time with normal speech. Skin: Skin is warm and dry. Intact without lesions or rashes. Appropriate color for ethnicity. Weight Dosing Weight: 93 kg (05/12/24) Dosing Weight: 93 kg (05/11/24) Medications Medications (20) Active Scheduled: (11) clomipramine 50 mg capsule 100 mg 2 cap(s), Oral, BID dexamethasone 0.5 mg tablet 0.5 mg 1 tab(s), Oral, BID fludrocortisone 0.1 mg Tablet 0.1 mg 1 tab(s), Oral, qDay insulin lispro 100 units/mL Soln (3 mL) Give 0-5 units/dose, Subcutaneous, TIDAC levothyroxine 125 mcg tablet 125 mcg 1 tab(s), Oral, qDay lurasidone 40 mg tablet 40 mg 1 tab(s), Oral, qDay metoclopramide 5 mg tablet 5 mg 1 tab(s), Oral, acSup pantoprazole 40 mg VIAL 40 mg, IV Push, BIDAC prazosin 2 mg capsule 2 mg 1 cap(s), Oral, qHS sucralfate 1 gm/10 mL Suspension 1 gram(s) 10 mL, Oral, achs topiramate 25 mg Tablet 25 mg 1 tab(s), Oral, qHS Continuous: (1) NS (0.9% nacl) 1,000 mL 1,000 mL, Intravenous, 100 mL/hr PRN: (8) acetaminophen 325 mg Tablet 650 mg 2 tab(s), Oral, q4h albuterol - ipratropium 2.5 mg-0.5 mg/3 mL Inhal [place] UD 3 mL, Inhalation, q4hRT albuterol 0.083% Soln UD (2.5mg/3 mL) 2.5 mg 3 mL, Inhalation, q6hRT dextrose 50% Solution Disp syringe 50 mL 12.5 gram(s) 25 mL, IV Push, AsDirected HYDROmorphone 0.5 mg/0.5 mL PF syringe 0.5 mg 0.5 mL, IV Push, q4h LORAZEPam 1 mg Tablet 1 mg 1 tab(s), Oral, BID melatonin 3 mg tablet 3 mg 1 tab(s), Oral, qHS ondansetron 2 mg/ 1 mL 2 mL INJ 4 mg 2 mL, IV Push, q6h Lab Results 05/15 05:55 WBC: 7.7 Hgb: 11.5 L Hct: 36.4 Platelet: 321 Neutrophil %: 50.5 Glucose Level: 75 Sodium Level: 142 Potassium Level: 3.2 L BUN: 5.0 L Creatinine Lvl (s): 0.81 05/14 03:59 WBC: 8.4 Hgb: 11.0 L Hct: 34.0 Platelet: 321 Neutrophil %: 63.9 Glucose Level: 100 Sodium Level: 141 Potassium Level: 3.6 BUN: 6.0 L Creatinine Lvl (s): 0.71 Liver Function Test Total Protein: 6.7 G/dL (05/15/24 05:55:00) Albumin Level: 3.3 G/dL (05/15/24 05:55:00) Bili Total: 1 mg/dL (05/15/24 05:55:00) Alk Phos: 104 U/L (05/15/24 05:55:00) AST/SGOT: 45 U/L High (05/15/24 05:55:00) ALT/SGPT: 107 U/L High (05/15/24 05:55:00) EKG No qualifying data available. Assessment/Plan Orders: Diet as tolerated(Advance diet as tolerated), 05/15/24 14:29:00 EDT Problem list: 1. Acute on chronic nausea and vomiting accompanied by weakness, fatigue and acute diarrhea 2. RUQ abdominal pain 3. Probable history of gastroparesis. 4. Possible history of gastritis and esophageal ulcer 5. Dysphagia intermittent, nonprogressive to solids and pills 6. Chronic GERD 8. Microcytosis 9. Elevated LFTs improving 10. Additional comorbidities of: Slade's disease/adrenal insufficiency, hypothyroidism, T2DM, obesity and migraine headaches. We have been following the patient for acute on chronic RUQ abdominal pain, acute on chronic nauseaand vomiting as well as reports of nonprogressive solid food/pill dysphagia and elevated LFTs. For further evaluation patient underwent EGD and abdominal ultrasound. Abdominal ultrasound on 05/13/2024notable for: Surgically absent gallbladder, diffuse hepatic steatosis but no evidence of intra or extrahepatic biliary dilation. EGD on 05/14/2024 notable for: Moderate to severe erosive gastritis butno ulcers. Esophagus and duodenum appeared normal. Biopsies were obtained for evaluation of H. pylori. Today, patient is doing about the same. Continues to struggle with persistent RUQ abdominal pain, nausea and vomiting. Her oral intake has been limited. Etiology of persistent pain likely multifactorial. Certainly may be functional component. Underlying gastritis could be contributing as well as possible flare of gastroparesis. She is passing flatus and had a loose stool yesterday. She is currently afebrile, hemodynamically stable and on room air. Reviewed EGD findings and a.m. lab and a.m. labresults with her. Hemoglobin remained stable at 11.5. LFTs have improved. No significant findings on ultrasound as above, T. bili 1.0, AST 45, ALT 107 and alk phos 104. Persistent elevated LFTs likely 2/2 hepatic steatosis. There has been no evidence of overt GI bleeding. Plan: Okay to advance diet as tolerated from a GI standpoint. With history of probable gastroparesis recommend small frequent low residue meals. Continue with Carafate 1 g nightly, recommend complete 14-day course upon discharge. Continue with twice daily PPI therapy while hospitalized, recommend transition back to once daily dosing on discharge. Patient encouraged to limit narcotic use as much as able as this could further aggravate abdominal pain and cause constipation. Avoid NSAIDs. Will follow-up gastric biopsy results. If positive for H. pylori office will initiate treatment. Recommend patient follow-up with her established whipped topping finisher at [facility]. Agree with consult. Will sign off. Call with questions or concerns. Digitally Signed by LEATHA COBB on 05/15/2024 02:36 PM [facility] [id number] Anesthesiology Consult note Patient: SONIA SZYMANSKI Age: 29 years Sex: Female : 1995 Associated Diagnoses: None Author: JESENIA MCGARRY DO Postoperative Information Post Operative Info: Post op day: Post Anesthesia Care Unit. Patient location: PACU. Assessment Postanesthesia assessment Vitals. Mental status: at preoperative baseline. Respiratory function: respirations are non-labored. Respiratory support: oxygen room air. CV function: stable. Cardiovascular support: none. Pain: satisfactory. Nausea status: satisfactory. Postoperative hydration status: within normal limits. Notes: Patient sufficiently recovered from anesthesia to participate in the evaluation. No follow-up needed. No post-anesthesia complications.. Digitally Signed by JESENIA MCGARRY DO on 05/14/2024 01:38 PM [facility] [id number] Procedure note Procedure: Upper endoscopy Indication: Intractable nausea and vomiting Provider: Papa Ayala MD Patient profile: Patient presented to our hospital with intractable nausea vomiting. She currently reports improvement in her symptoms with the antacid therapy and antiemetics. She recalls undergoingendoscopy within the last couple of years and also being diagnosed with gastroparesis at [facility]. Medicines: Monitored anesthesia care Complications: No immediate complications. Procedure: Prior to the procedure, history and physical was performed and patient medications allergies and sensitivities were reviewed. The risks and benefits of the procedure and the sedation options and risks were discussed with the patient. All questions were answered and informed consent was obtained. Patient identification and proposed procedure were verified prior to the procedure by the physician and the nurse. After obtaining informed consent the endoscopy was passed under direct vision. Throughout the procedure the patient's blood pressure, pulse and oxygen saturations were monitored continuously. The procedure was accomplished without difficulty. The patient tolerated the procedure well. The endoscope was introduced through the mouth, and advanced to the second part of the duodenum. Upon discharge from the endoscopy area, the patient will be recovered per established procedures and protocols. Findings: Esophagus: Normal esophagus . No findings concerning for esophagitis. Stomach: Significant congestion and erythema, with some superficial erosions consistent with moderate to severe erosive gastritis. Biopsies were obtained for the evaluation of H. pylori. Duodenum: Within normal limits Impression: Moderate to severe gastritis-which could very well explain patient's current symptoms of nausea vomiting. S/p biopsies Recommendations: Discontinue NSAID use. Await pathology results. Full liquid diet and advance as tolerated. Continue current GI medications. Will add Carafate ACHS. She reports improvement in symptoms. Will continue to follow. Anticipate discharge in the next 24 to 48 hours. 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 Findings and recommendations were reviewed with patient's Triston at [phone] Digitally Signed by NEYMAR AYALA MD on 05/14/2024 11:32 AM [facility] [id number] Anesthesiology Consult note Patient: SONIA SZYMANSKI Age: 29 years Sex: Female : 1995 Associated Diagnoses: None Author: SABI ELIZONDO MD Preoperative Information NPO >8 hours Anesthesia history Patient's history: negative. History of Present Illness 29yoF with PMH [place]'s disease, diabetes, hypothyroidism, obesity, chronic GERD and history of possible gastroparesis on Reglan at home presenting for EGD. Denies CP, SOB, fever, recent cough, coldor congestion; >4 METS, no GERD sx, N or V today. Health Status Allergies: Allergic Reactions (Selected) Severity Not Documented Excedrin- Throat swelling. Latex- Hives. Neosporin- Hives. Zithromax- Throat swelling., Allergies (4) ActiveSeverityReaction Zithromaxthroat swelling Excedrinthroat swelling Neosporinhives Latexhives Current medications: (Selected) Inpatient Medications Ordered Dextrose 50% IV Push: 12.5 gram(s), 25 mL, IV Push, AsDirected, PRN: Hypoglycemia Dilaudid: 0.5 mg, 0.5 mL, IV Push, q4h, PRN: Pain, scale 4-10 DuoNeb: 3 mL, Inhalation, q4hRT, PRN: Shortness of breath or wheezing HumaLOG 100 units/mL subcutaneous solution: Give 0-5 units/dose, Subcutaneous, TIDAC LORazepam: 1 mg, 1 tab(s), Oral, BID, PRN: Anxiety NS 1,000 mL: 100 mL/hr, Intravenous Protonix IV Push: 40 mg, IV Push, BIDAC Reglan: 5 mg, 1 tab(s), Oral, acSup Tylenol: 650 mg, 2 tab(s), Oral, q4h, PRN: Pain, scale 1-3 Zofran: 4 mg, 2 mL, IV Push, q6h, PRN: Nausea albuterol: 2.5 mg, 3 mL, Inhalation, q6hRT, PRN: Wheezing clomiPRAMINE: 100 mg, 2 cap(s), Oral, BID dexAMETHasone: 0.5 mg, 1 tab(s), Oral, BID fludrocortisone: 0.1 mg, 1 tab(s), Oral, qDay levothyroxine: 125 mcg, 1 tab(s), Oral, qDay lurasidone: 40 mg, 1 tab(s), Oral, qDay melatonin: 3 mg, 1 tab(s), Oral, qHS, PRN: Sleep prazosin: 2 mg, 1 cap(s), Oral, qHS topiramate: 25 mg, 1 tab(s), Oral, qHS Suspended Jardiance: 10 mg, 1 tab(s), Oral, qAM Lovenox: 40 mg, 0.4 mL, Subcutaneous, q24h Documented Medications Documented Aimovig SureClick Autoinjector 70 mg/mL subcutaneous solution: 70 mg, Subcutaneous, qmonth, 0 Refill(s) Albuterol (Eqv-Ventolin HFA) 90 mcg/inh inhalation aerosol: 1 puff(s), Inhalation, q6hr, PRN: as needed for wheezing, 0 Refill(s) Jardiance 10 mg oral tablet: 10 mg, 1 tab(s), Oral, qAM, 0 Refill(s) LORazepam 1 mg oral tablet: 1 mg, 1 tab(s), Oral, BID, PRN: as needed for anxiety, 0 Refill(s) atorvastatin 10 mg oral tablet: 10 mg, 1 tab(s), Oral, qHS, 0 Refill(s) clomiPRAMINE 50 mg oral capsule: 100 mg, 2 cap(s), Oral, BID, 0 Refill(s) dexAMETHasone 0.5 mg oral tablet: 0.5 mg, 1 tab(s), Oral, BID, 0 Refill(s) eletriptan 40 mg oral tablet: 40 mg, 1 tab(s), Oral, Daily, PRN: Pain, 0 Refill(s) fludrocortisone 0.1 mg oral tablet: 0.1 mg, 1 tab(s), Oral, qDay, 0 Refill(s) levothyroxine 125 mcg (0.125 mg) oral tablet: 125 mcg, 1 tab(s), Oral, qDay, 0 Refill(s) lurasidone 40 mg oral tablet: 40 mg, 1 tab(s), Oral, qDay, 0 Refill(s) metoclopramide 5 mg oral tablet: 5 mg, 1 tab(s), Oral, q8h, PRN: Control symptoms, 0 Refill(s) pantoprazole 40 mg oral enteric coated tablet: 40 mg, 1 tab(s), Oral, qDay, 0 Refill(s) prazosin 2 mg oral capsule: 2 mg, 1 cap(s), Oral, qHS, 0 Refill(s) promethazine 25 mg oral tablet: 25 mg, 1 tab(s), Oral, q6hr, PRN: as needed for nausea/vomiting, 0 Refill(s) topiramate 25 mg oral tablet: 25 mg, 1 tab(s), Oral, qHS, 0 Refill(s), Medications (19) Active Scheduled: (10) clomipramine 50 mg capsule 100 mg 2 cap(s), Oral, BID dexamethasone 0.5 mg tablet 0.5 mg 1 tab(s), Oral, BID fludrocortisone 0.1 mg Tablet 0.1 mg 1 tab(s), Oral, qDay insulin lispro 100 units/mL Soln (3 mL) Give 0-5 units/dose, Subcutaneous, TIDAC levothyroxine 125 mcg tablet 125 mcg 1 tab(s), Oral, qDay lurasidone 40 mg tablet 40 mg 1 tab(s), Oral, qDay metoclopramide 5 mg tablet 5 mg 1 tab(s), Oral, acSup pantoprazole 40 mg VIAL 40 mg, IV Push, BIDAC prazosin 2 mg capsule 2 mg 1 cap(s), Oral, qHS topiramate 25 mg Tablet 25 mg 1 tab(s), Oral, qHS Continuous: (1) NS (0.9% nacl) 1,000 mL 1,000 mL, Intravenous, 100 mL/hr PRN: (8) acetaminophen 325 mg Tablet 650 mg 2 tab(s), Oral, q4h albuterol - ipratropium 2.5 mg-0.5 mg/3 mL Inhal [place] UD 3 mL, Inhalation, q4hRT albuterol 0.083% Soln UD (2.5mg/3 mL) 2.5 mg 3 mL, Inhalation, q6hRT dextrose 50% Solution Disp syringe 50 mL 12.5 gram(s) 25 mL, IV Push, AsDirected HYDROmorphone 0.5 mg/0.5 mL PF syringe 0.5 mg 0.5 mL, IV Push, q4h LORAZEPam 1 mg Tablet 1 mg 1 tab(s), Oral, BID melatonin 3 mg tablet 3 mg 1 tab(s), Oral, qHS ondansetron 2 mg/ 1 mL 2 mL INJ 4 mg 2 mL, IV Push, q6h Problem list: No qualifying data available Histories Past Medical History: No active or resolved past medical history items have been selected or recorded. Family History: No family history items have been selected or recorded. Procedure history: No active procedure history items have been selected or recorded. Social History: Social & Psychosocial Habits No Data Available Physical Examination Vital Signs (last 24 hrs) Last Charted Temp Oral36.3 DegC (MAY 14 10:29) Heart Rate MonitoredL 59 bpm (MAY 13 20:10) BGS047 mmHg (MAY 14 10:29) DBP81 mmHg (MAY 14 10:29) General: Alert and oriented, No acute distress. Airway: Normal mouth, Normal neck range of motion. Mallampati classification: II (soft palate, fauces, uvula visible). Dentition Evaluation: Missing teeth. Neck: Supple. Respiratory: Lungs are clear to auscultation, Respirations are non-labored. Cardiovascular: Normal rate, Regular rhythm. Heart Sounds: Normal. Neurologic: Alert, Oriented. Review / Management Results review: Labs (Last four charted values) WBC 8.4(MAY 14)8.5(MAY 13)7.8(MAY 12)8.4(MAY 11) Hgb L 11.0(MAY 14)L 10.5(MAY 13)L 11.5(MAY 12)L 11.6(MAY 12) Hct 34.0(MAY 14)L 32.6(MAY 13)36.4(MAY 12)38.3(MAY 11) Plt 321(MAY 14)283(MAY 13)314(MAY 12)335(MAY 11) Na 141(MAY 14)141(MAY 13)138(MAY 12)138(MAY 11) K 3.6(MAY 14)3.6(MAY 13)4.3(MAY 12)3.6(MAY 11) CO2 28(MAY 14)26(MAY 13)27(MAY 12)23(MAY 11) Cl 106(MAY 14)108(MAY 13)106(MAY 12)107(MAY 11) Cr 0.71(MAY 14)0.71(MAY 13)0.70(MAY 12)0.65(MAY 11) BUN L 6.0(MAY 14)8.0(MAY 13)L 7.0(MAY 12)L <5.0(MAY 11) Glucose 100(MAY 14)79(MAY 13)H 112(MAY 12)H 112(MAY 11) Mg 1.9(MAY 13)1.9(MAY 11) Ca L 8.4(MAY 14)L 8.6(MAY 13)L 8.5(MAY 12)8.8(MAY 11) . Documentation reviewed: Current records. Assessment and Plan [employer] Anesthesiologists (ASA) physical status classification: Class III. Anesthetic Preoperative Plan Premedication: intravenous. Anesthetic technique: MAC. Induction: intravenously. Maintenance airway: NC. Postoperative pain management: Per surgeon. Risks discussed: nausea, vomiting, headache, sore throat, dental injury, hypotension, allergic reaction, serious complications. Informed consent: signed by patient. Notes: discussed and consented pt for mac anesthesia however also discussed and consented for general anesthesia if necessary for conversion . Digitally Signed by SABI ELIZONDO MD on 05/14/2024 11:11 AM Digitally Signed by SABI ELIZONDO MD on 05/14/2024 11:19 AM [facility] [id number] Note Date of Service 05/14/2024 Chief Complaint nausea/vomiting, RUQ pain, adrenal insufficiency Subjective Patient seen/examined at bedside today. Chart reviewed. Discussed with medical staff. Denies chest pain, shortness of breath. Endorses persistent RUQ abdominal pain, nausea/vomiting improved with antiemetics. Objective Vitals and Measurements T: 35.7 C (Oral) TMIN: 35.7 C (Oral) TMAX: 36.7 C (Oral) HR: 53 RR: 18 BP: 126/80 SpO2: 97% Intake and Output 7AM Yesterday to 7AM Today Intake and Output (Last 24 hours) Intake Oral Intake 550.00 Administration Information 2400.00 Output Stool Count 0.00 Urine Count 9.00 Total Summary Total Intake 2950.00 Total Output 0.00 Fluid Balance 2950.00 Physical Exam General: awake, alert HEENT: No Pallor, No Icterus Cardiac: S1, S2, regular Lungs: clear to auscultation Abdomen: Soft, tender RUQ, no guarding or rigidity, bowel sounds present Extremities: 2+ distal pulses Neurological: AAOx4 Weight Dosing Weight: 93 kg (05/12/24) Dosing Weight: 93 kg (05/11/24) Medications Medications (20) Active Scheduled: (11) clomipramine 50 mg capsule 100 mg 2 cap(s), Oral, BID dexamethasone 0.5 mg tablet 0.5 mg 1 tab(s), Oral, BID fludrocortisone 0.1 mg Tablet 0.1 mg 1 tab(s), Oral, qDay hydrocortisone 100 mg VIAL 50 mg, IV Push, Once insulin lispro 100 units/mL Soln (3 mL) Give 0-5 units/dose, Subcutaneous, TIDAC levothyroxine 125 mcg tablet 125 mcg 1 tab(s), Oral, qDay lurasidone 40 mg tablet 40 mg 1 tab(s), Oral, qDay metoclopramide 5 mg tablet 5 mg 1 tab(s), Oral, acSup pantoprazole 40 mg VIAL 40 mg, IV Push, BIDAC prazosin 2 mg capsule 2 mg 1 cap(s), Oral, qHS topiramate 25 mg Tablet 25 mg 1 tab(s), Oral, qHS Continuous: (1) NS (0.9% nacl) 1,000 mL 1,000 mL, Intravenous, 100 mL/hr PRN: (8) acetaminophen 325 mg Tablet 650 mg 2 tab(s), Oral, q4h albuterol - ipratropium 2.5 mg-0.5 mg/3 mL Inhal [place] UD 3 mL, Inhalation, q4hRT albuterol 0.083% Soln UD (2.5mg/3 mL) 2.5 mg 3 mL, Inhalation, q6hRT dextrose 50% Solution Disp syringe 50 mL 12.5 gram(s) 25 mL, IV Push, AsDirected HYDROmorphone 0.5 mg/0.5 mL PF syringe 0.5 mg 0.5 mL, IV Push, q4h LORAZEPam 1 mg Tablet 1 mg 1 tab(s), Oral, BID melatonin 3 mg tablet 3 mg 1 tab(s), Oral, qHS ondansetron 2 mg/ 1 mL 2 mL INJ 4 mg 2 mL, IV Push, q6h Lab Results 05/14 03:59 WBC: 8.4 Hgb: 11.0 L Hct: 34.0 Platelet: 321 Neutrophil %: 63.9 Glucose Level: 100 Sodium Level: 141 Potassium Level: 3.6 BUN: 6.0 L Creatinine Lvl (s): 0.71 05/13 06:07 WBC: 8.5 Hgb: 10.5 L Hct: 32.6 L Platelet: 283 Neutrophil %: 55.9 Glucose Level: 79 Sodium Level: 141 Potassium Level: 3.6 BUN: 8.0 Creatinine Lvl (s): 0.71 Imaging Results and Diagnostics US Abdomen Limited Result Date: May 13, 2024 Verified By: WERNER LAMBERT DO CLINICAL STATEMENT: IMPRESSION: 1. Diffuse fatty infiltration of the liver.2. Tenderness on direct examination over thepancreas. XR Enteric Tube Placement Result Date: May 12, 2024 Verified By: FABRICE MORENO MD CLINICAL STATEMENT: IMPRESSION: 1. Enteric tube terminates within the proximal stomach. 2. Hazy airspace opacities within the lungs bilaterally, greater on theright, may represent developing infiltrates versus superimposition of softtissue. A two view chest radiograph should be performed when the patient'scondition permits. CT Abdomen/Pelvis w/Contrast Result Date: May 11, 2024 Verified By: ROBY LANDAVERDE MD CLINICAL STATEMENT: IMPRESSION: No acute intra-abdominal abnormality identified. Infiltrative stranding of the right anterior abdominal subcutaneous tissueswith overlying skin thickening, probably injection site granuloma. Marked hepatic steatosis. I have personally reviewed the images of this examination and agree with theresident's findings and interpretation. EKG No qualifying data available. Assessment/Plan Intractable nausea and vomiting Right upper quadrant abdominal pain Concern for gastroparesis flare Hepatic steatosis Transaminitis Adrenal insufficiency Dizziness and lightheadedness secondary to above Hypothyroid History of migraine headaches PLAN: 29-year-old female PMH adrenal insufficiency on Florinef and dexamethasone, hypothyroidism, GERD, obesity. Patient presented 05/11 with intractable nausea and vomiting , lightheadedness, and diarrheafor 2 days. Patient with episode of coffee-ground emesis in ED. GI was consulted, plan for EGD. Patient was started on stress dose steroids because of history of adrenal insufficiency, now titirating back to home dose. AM labs DVT prophylaxis Code status: Full Code Prognosis guarded The above discussed with the patient at bedside who states understanding and agreement with plan. Discussed with medical staff. Questions sought and answered. Anticipated Date of Discharge 1-2 days pending clinical course. Digitally Signed by KASSANDRA BOONE MD on 05/14/2024 02:37 PM [facility] [id number] Note Date of Service 05/13/2024 Chief Complaint Patient seen and examined today for intractable nausea and vomiting, episode of coffee-ground emesis, transaminitis Subjective Patient seen today, complains of nausea and right upper quadrant abdominal pain, denies any vomiting Patient summary: 29-year-old lady past medical history of adrenal insufficiency on Florinef and dexamethasone, hypothyroidism, GERD, obesity presented due to intractable nausea and vomiting , lightheadedness, and diarrhea for 2 days she had episode of coffee-ground emesis yesterday in ED. GI was consulted, plan for EGD tomorrow Patient was started on stress dose steroids because of history of adrenal insufficiency, continue home dose on 05/15/2024. Objective Vitals and Measurements T: 36.7 C (Oral) TMIN: 36.0 C (Oral) TMAX: 36.7 C (Oral) HR: 65 (Monitored) RR: 20 BP: 125/79 SpO2:95% HT: 165 cm WT: 93 kg BMI: 34.16 Intake and Output 7AM Yesterday to 7AM Today Intake and Output (Last 24 hours) Intake Oral Intake 470.00 Administration Information 800.00 Output Urine Voided 0.00 Stool Count 0.00 Urine Count 5.00 Total Summary Total Intake 1270.00 Total Output 0.00 Fluid Balance 1270.00 Physical Exam General Appearance: Patient appears healthy, well-developed, not in any acute distress. Cardiac: Normal rate and rhythm, S1-S2 heard, no murmurs heard. Lungs: Clear on auscultation bilaterally, no wheezes or rales. Abdomen: Nondistended, mild discomfort on palpation of right upper abdomen Extremities: No pedal edema. Neurological: Alert ,oriented, no focal deficits. Weight Dosing Weight: 93 kg (05/12/24) Dosing Weight: 93 kg (05/11/24) Medications Medications (21) Active Scheduled: (12) clomipramine 50 mg capsule 100 mg 2 cap(s), Oral, BID dexamethasone 0.5 mg tablet 0.5 mg 1 tab(s), Oral, BID fludrocortisone 0.1 mg Tablet 0.1 mg 1 tab(s), Oral, qDay hydrocortisone 100 mg VIAL 50 mg, IV Push, BID hydrocortisone 100 mg VIAL 50 mg, IV Push, Once insulin lispro 100 units/mL Soln (3 mL) Give 0-5 units/dose, Subcutaneous, TIDAC levothyroxine 125 mcg tablet 125 mcg 1 tab(s), Oral, qDay lurasidone 40 mg tablet 40 mg 1 tab(s), Oral, qDay metoclopramide 5 mg tablet 5 mg 1 tab(s), Oral, acSup pantoprazole 40 mg VIAL 40 mg, IV Push, BIDAC prazosin 2 mg capsule 2 mg 1 cap(s), Oral, qHS topiramate 25 mg Tablet 25 mg 1 tab(s), Oral, qHS Continuous: (1) NS (0.9% nacl) 1,000 mL 1,000 mL, Intravenous, 100 mL/hr PRN: (8) acetaminophen 325 mg Tablet 650 mg 2 tab(s), Oral, q4h albuterol - ipratropium 2.5 mg-0.5 mg/3 mL Inhal [place] UD 3 mL, Inhalation, q4hRT albuterol 0.083% Soln UD (2.5mg/3 mL) 2.5 mg 3 mL, Inhalation, q6hRT dextrose 50% Solution Disp syringe 50 mL 12.5 gram(s) 25 mL, IV Push, AsDirected HYDROmorphone 0.5 mg/0.5 mL PF syringe 0.5 mg 0.5 mL, IV Push, q4h LORAZEPam 1 mg Tablet 1 mg 1 tab(s), Oral, BID melatonin 3 mg tablet 3 mg 1 tab(s), Oral, qHS ondansetron 2 mg/ 1 mL 2 mL INJ 4 mg 2 mL, IV Push, q6h Lab Results 05/13 06:07 WBC: 8.5 Hgb: 10.5 L Hct: 32.6 L Platelet: 283 Neutrophil %: 55.9 Glucose Level: 79 Sodium Level: 141 Potassium Level: 3.6 BUN: 8.0 Creatinine Lvl (s): 0.71 05/12 12:58 Hgb: 11.5 L EKG No qualifying data available. Assessment/Plan Orders: dexAMETHasone, 0.5 mg= 1 tab(s), Oral, BID hydrocortisone, 50 mg, IV Push, BID hydrocortisone, 50 mg, IV Push, Once insulin lispro (HumaLOG)(HumaLOG 100 units/mL subcutaneous solution), Give 0-5 units/dose, Subcutaneous, TIDAC Admit to Inpatient, 05/13/24 13:44:00 EDT, Level of Care: Stepdown with monitor, Reason for Admission: See History & Physical, Expected Length of Stay: More Than Two Midnights, I certify that hospital inpatient services are reasonable and necessary, and appropriately pro... Basic Metabolic Panel(BMP), 05/14/24 5:00:00 EDT, Next AM Draw (one day only), Blood, Once, Stop date 05/14/24 5:00:00 EDT Blood Glucose Monitoring POC, 05/13/24 9:01:00 EDT, achs Complete Blood Count(CBC), 05/14/24 5:00:00 EDT, Next AM Draw (one day only), Blood, Once, Stop date 05/14/24 5:00:00 EDT Hepatic Function Panel, 05/14/24 5:00:00 EDT, Next AM Draw (one day only), Blood, Once, Stop date 05/14/24 5:00:00 EDT Time Spent 1. Intractable nausea and vomiting and right upper abdominal pain: Could be from gastroenteritis -CT abdomen showed hepatic steatosis and no acute finding -Ultrasound of abdomen also showed hepatic steatosis -Patient had diarrhea for 2 days, currently resolved --GI on board, planning for EGD tomorrow -Continue Zofran, Reglan, PPI -Patient had 1 episode of coffee-ground emesis yesterday in ED. -As per pharmacist, Reglan and lurasidone together can cause extrapyramidal side effects. -If plan is to continue scheduled Reglan for more days, lurasidone needs to be discontinued. 2. Transaminitis: Due to hepatic steatosis 3. Adrenal insufficiency: Continue fludrocortisone. Patient was on dexamethasone as outpatient , follows up with endocrinology as outpatient. Continue stress dose steroids till tomorrow and then start home dose on 05/15/2024 4. Lightheadedness and dizziness due to #1 and 3 -Patient denies any syncopal episodes Continue fluids- 4. Hypothyroidism on levothyroxine 5. History of migraine headaches, continue home medication DVT prophylaxis on subcu Lovenox Digitally Signed by CINTHIA KILGORE MD on 05/13/2024 08:00 PM Digitally Signed by CINTHIA KILGORE MD on 05/13/2024 08:51 PM [facility] [id number] Note ORIGINAL EXAMINATION: RIGHT UPPER QUADRANT ULTRASOUND 05/13/2024 2:38 pm COMPARISON: CT abdomen and pelvis 05/11/2024 HISTORY: ORDERING SYSTEM PROVIDED HISTORY: Reason for Exam: Elevated LFTs, RUQ abdominal pain FINDINGS: LIVER: The liver demonstrates diffuse increased echogenicity without evidence of intrahepatic biliary ductal dilatation. Masking of the portal triads is noted. BILIARY SYSTEM: Gallbladder surgically absent. Common bile duct is within normal limits measuring 5.8 mm. RIGHT KIDNEY: The right kidney is grossly unremarkable without evidence of hydronephrosis. Kidney shows normal cortical thickness and echotexture measuring 10.2 x 4.2 cm. PANCREAS: Pancreas is poorly visualized. There is tenderness encountered on direct examination over the pancreas. OTHER: No evidence of right upper quadrant ascites. IMPRESSION: 1. Diffuse fatty infiltration of the liver. 2. Tenderness on direct examination over the pancreas. Interpreted by: Werner Lambert DO Preliminary Report By: Werner Lambert DO Electronically signed By Werner Lambert DO Dictated Date: 05/13/2024 2:49:54 PM Prelim Date: 05/13/2024 2:52:24 PM Sign Date: 05/13/2024 2:52:24 PM Ordering Provider: [facility]07-22-2024 Gastroenterology Consult note Date of Service 05/13/2024 Reason for Consultation Acute on chronic nausea vomiting, RUQ abdominal pain, probable gastroparesis, GERD, dysphagia Referring Physician Dr. 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 Prior to that was seen and evaluated at [facility] and was recommended to seek furtherevaluation at [facility]. On arrival patient underwent further evaluation/workup including CT abdomen pelvis and laboratory studies. CT abdomen pelvis with contrast notable for: No acute intra-abdominal abnormalities. Nonacute findings and of of hepatic steatosis with no suspicious focal liver lesions or intra/extrahepatic biliarydilation, ascites or pathologically enlarged lymph nodes. Initial laboratory studies notable for: Normal CBC apart from microcytosis with MCV 76.9 but no leukocytosis, anemia or thrombocytopenia. CMP notable for elevated glucose at 128 and elevated LFTs with T. bili 1.4, AST 157, ALT 224 and alk phos 138. No labs available for baseline comparison. Lipase normal at 31. Troponin normal at < 3. Acute viral hepatitis panel negative. TSH normal at 0.776. Patient was admitted for further management of intractable nausea and vomiting, started on IV fluids and antiemetic therapy. We have been consulted to the patient from a GI standpoint. This morning patient was seen and examined resting in bed. Reports mild improvement in symptoms. She does have a complex medical history as above notable for multiple medical problems. Follows with whipped topping finisher Dr. Araon Grace at [facility] and she is somewhat of a poor historian on this but believes she underwent an EGD with possible dilation and colonoscopy several years ago. Reports she was told she had "inflammation in her stomach" and possible esophageal ulcer. Previously underwent EGD with dilation for symptoms of dysphagia with improvement in symptoms. Believes her colonoscopy was unremarkable. Also sounds like she underwent gastric emptying study and has a possible history of gastroparesis. She is on prokinetic therapy of Reglan which she takes on an as-needed basisfor chronic nausea and vomiting. Also has a history of multiple endocrine abnormalities and follows with mold operator Dr. Pride at [facility] as well. This morning patient was seen and examined resting in bed. As above has a history of chronic dizziness, nausea, vomiting, however, since Monday she has had increased in symptoms accompanied by poor appetite, RUQ abdominal pain and diarrhea. Patient cannot have any specific trigger for increase in symptoms. Denies recent travel, sick contacts, suspicious food/water intake, antibiotic use, herbal supplements or changes to medications. Reports that diarrhea stools were initially more dark brownin color and then transitioned to pasty. RUQ abdominal pain was aggravated by the intake of food and alleviated with rest, heat, warm showers and baths. Reports a history of chronic GERD, which is gen erally well-controlled with daily PPI therapy of pantoprazole. Reports occasional breakthrough symptoms occurring 1-2 times per month. Also reports intermittent, nonprogressive solid food and pill dysphagia, describes swallowing as "slow and tight". Denies symptoms with liquids. Denies hematemesis,melena or bright red blood per rectum. Believes her weight has remained stable. Reports increased stool frequency and diarrhea with nausea and vomiting. Describes stools as dark brown in color followed by pasty pale stools but denies melena, maroon stools or bright red blood per rectum. Prior to this reports regular, daily bowel movements without changes in bowel habits. Denies use of NSAIDs. Does not take anticoagulants or antiplatelets. Denies use of EtOH. She is a non- smoker. Reports occasional CBD gummy use for management of nausea and vomiting. Reports a family history of liver disease in her mother but is unsure of this etiology. Does have ahistory of multiple abdominal surgeries including appendectomy, hysterectomy and cholecystectomy. Review of Systems 10 system review of systems was completed all pertinent positives were described above and are otherwise negative. Physical Exam Vitals and Measurements T: 36.3 C (Oral) TMIN: 36.0 C (Oral) TMAX: 36.4 C (Oral) HR: 61 RR: 20 BP: 137/92 SpO2: 97% HT: 165cm WT: 93 kg BMI: 34.16 Weight Dosing Weight: 93 kg (05/12/24) Dosing Weight: 93 kg (05/11/24) General Appearance: Patient is alert, well-appearing, in no acute distress. Appropriate mood and affect. HEENT: Head is normocephalic and atraumatic. Conjunctivae are clear without exudates or hemorrhage sclera is nonicteric. Nasal mucosa is pink and moist. Oral mucosa is pink and moist. The pharynx is normal in appearance. Neck supple. Trachea midline. Neck supple. Trachea midline Cardiac: Heart rate and rhythm are normal. S1 and S2 are heard and are of normal intensity. Lungs: No signs of respiratory distress. Lung sounds are clear in all lobes bilaterally without rales, rhonchi, or wheezes. Abdomen: Abdomen is soft, symmetric and nontender without distention. Umbilicus is midline without herniation. Bowel sounds are present in all 4 quadrants. Extremities: No edema noted. Pulses palpable. Neurological: The patient is alert awake and oriented to person,place, and time with normal speech. Skin: Skin is warm and dry. Intact without lesions or rashes. Appropriate color for ethnicity. Lab Results 05/13 06:07 WBC: 8.5 Hgb: 10.5 L Hct: 32.6 L Platelet: 283 Neutrophil %: 55.9 Glucose Level: 79 Sodium Level: 141 Potassium Level: 3.6 BUN: 8.0 Creatinine Lvl (s): 0.71 05/12 12:58 Hgb: 11.5 L 05/12 05:20 WBC: 7.8 Hgb: 11.6 L Hct: 36.4 Platelet: 314 Neutrophil %: 78.3 H Glucose Level: 112 H Sodium Level: 138 Potassium Level: 4.3 BUN: 7.0 L Creatinine Lvl (s): 0.70 Liver Function Test Total Protein: 5.9 G/dL (05/13/24 06:07:00) Albumin Level: 2.9 G/dL Low (05/13/24 06:07:00) Bili Total: 0.7 mg/dL (05/13/24 06:07:00) Alk Phos: 96 U/L (05/13/24 06:07:00) AST/SGOT: 47 U/L High (05/13/24 06:07:00) ALT/SGPT: 115 U/L High (05/13/24 06:07:00) Imaging Results and Diagnostics XR Enteric Tube Placement Result Date: May 12, 2024 Verified By: JOSH PRO, FABRICE Cardenas CLINICAL STATEMENT: IMPRESSION: 1. Enteric tube terminates within the proximal stomach. 2. Hazy airspace opacities within the lungs bilaterally, greater on theright, may represent developing infiltrates versus superimposition of softtissue. A two view chest radiograph should be performed when the patient'scondition permits. CT Abdomen/Pelvis w/Contrast Result Date: May 11, 2024 Verified By: ROBY LANDAVERDE MD CLINICAL STATEMENT: IMPRESSION: No acute intra-abdominal abnormality identified. Infiltrative stranding of the right anterior abdominal subcutaneous tissueswith overlying skin thickening, probably injection site granuloma. Marked hepatic steatosis. I have personally reviewed the images of this examination and agree with theresident's findings and interpretation. Assessment/Plan Orders: metoclopramide(Reglan), 5 mg= 1 tab(s), Oral, acSupper ondansetron(Zofran), 4 mg= 2 mL, IV Push, q6h, PRN Esophagogastroduodenoscopy(EGD), 05/14/24 8:30:00 EDT, Once, NEYMAR AYALA MD, Intractable nausea and vomiting, RUQ abdominal pain,, Yes, No NPO after Midnight, 05/13/24 23:58:00 EDT, Constant Order US Abdomen Complete, 05/13/24 11:01:00 EDT, 05/13/24 11:01:00 EDT, Routine, Elevated LFTs, RUQ abdominal pain, Full Code, Portable: No, Bed Nurse and Monitor, Isolation: None, IV: No, Oxygen: No, Diabetes: Yes, Wt k, ME4E Problem list: 1. Acute on chronic nausea and vomiting accompanied by weakness, fatigue and acute diarrhea 2. RUQ abdominal pain 3. Probable history of gastroparesis. 4. Possible history of gastritis and esophageal ulcer 5. Dysphagia intermittent, nonprogressive to solids and pills 6. Chronic GERD 8. Microcytosis 9. Elevated LFTs improving 10. Additional comorbidities of: Slade's disease/adrenal insufficiency, hypothyroidism, T2DM, obesity and migraine headaches. We been consulted to see the patient for a number of issues including acute on chronic nausea, vomiting, RUQ abdominal pain, intermittent nonprogressive solid food/pill dysphagia and elevated LFTs. Exact etiology of patient's symptoms is unknown, the differential list is quite large but at this point suspect 2/2 flare of probable gastroparesis following infectious gastroenteritis with reports of acute on chronic nausea, vomiting and diarrhea. Right upper quadrant pain could also be from gastroparesis, although she may have a history of PUD as well as possible esophageal stricture, currently reports intermittent, nonprogressive solid food dysphagia. Lower suspicion for biliary pathologies at this point, although LFTs slightly elevated and have improved this morning with T. bili 0.7, AST 47, ALT 115 and alk phos 96. Etiology could be reactive due to acute infectious process and underlyinghepatic steatosis. She notes improvement in symptoms this morning. She has no evidence of overt GI bleeding, hemoglobin has trended downward but at this point suspect 2/2 hemodilution with fluid resus citation. She is currently afebrile hemodynamically stable and on room air. Plan: Okay for clear liquid diet. N.p.o. after midnight. If not already ordered will maximize patient's PPI therapy/increase frequency to twice daily dosing. Obtain abdominal ultrasound. Plan for EGD under MAC anesthesia tomorrow patient was educated on risk versus benefits of the procedure including bleeding, infection, perforation and complications of anesthesia. She verbalizes understanding and is agreeable to proceed. With suspected flare of gastroparesis will place patient on scheduled Reglan 5 mg oral solution 4 times daily. Depending on her response can increase to 10 mg 4 times daily. She can continue this fora month after discharge and then recommend limiting use, although she does use chronically due to the risk of extra pyramidal symptoms including irreversible tardive dyskinesia. Obtain records from [facility] [place]. Thank you for the consult. Will continue to follow with you. Please call us with questions or concerns. Refer to Dr. Ayala's addendum to my note. Procedure/Surgical History No qualifying data available. Medications Inpatient albuterol, 2.5 mg= 3 mL, Inhalation, q6hRT, PRN clomiPRAMINE, 100 mg= 2 cap(s), Oral, BID Dextrose 50% IV Push, 12.5 gram(s)= 25 mL, IV Push, AsDirected, PRN Dilaudid, 0.5 mg= 0.5 mL, IV Push, q4h, PRN DuoNeb, 3 mL, Inhalation, q4hRT, PRN fludrocortisone, 0.1 mg= 1 tab(s), Oral, qDay HumaLOG 100 units/mL subcutaneous solution, Give 0-5 units/dose, Subcutaneous, TIDAC hydrocortisone, 50 mg, IV Push, BID levothyroxine, 125 mcg= 1 tab(s), Oral, qDay LORazepam, 1 mg= 1 tab(s), Oral, BID, PRN lurasidone, 40 mg= 1 tab(s), Oral, qDay melatonin, 3 mg= 1 tab(s), Oral, qHS, PRN NS 1,000 mL, 1000 mL, Intravenous prazosin, 2 mg= 1 cap(s), Oral, qHS Protonix IV Push, 40 mg, IV Push, BIDAC Reglan, 5 mg= 1 tab(s), Oral, acSupper topiramate, 25 mg= 1 tab(s), Oral, qHS Tylenol, 650 mg= 2 tab(s), Oral, q4h, PRN Zofran, 4 mg= 2 mL, IV Push, q6h, PRN Home Aimovig SureClick Autoinjector 70 mg/mL subcutaneous solution, 70 mg, Subcutaneous, qmonth Albuterol (Eqv-Ventolin HFA) 90 mcg/inh inhalation aerosol, 1 puff(s), Inhalation, q6hr, PRN atorvastatin 10 mg oral tablet, 10 mg= 1 tab(s), Oral, qHS clomiPRAMINE 50 mg oral capsule, 100 mg= 2 cap(s), Oral, BID dexAMETHasone 0.5 mg oral tablet, 0.5 mg= 1 tab(s), Oral, BID eletriptan 40 mg oral tablet, 40 mg= 1 tab(s), Oral, Daily, PRN fludrocortisone 0.1 mg oral tablet, 0.1 mg= 1 tab(s), Oral, qDay Jardiance 10 mg oral tablet, 10 mg= 1 tab(s), Oral, qAM levothyroxine 125 mcg (0.125 mg) oral tablet, 125 mcg= 1 tab(s), Oral, qDay LORazepam 1 mg oral tablet, 1 mg= 1 tab(s), Oral, BID, PRN lurasidone 40 mg oral tablet, 40 mg= 1 tab(s), Oral, qDay metoclopramide 5 mg oral tablet, 5 mg= 1 tab(s), Oral, q8h, PRN pantoprazole 40 mg oral enteric coated tablet, 40 mg= 1 tab(s), Oral, qDay prazosin 2 mg oral capsule, 2 mg= 1 cap(s), Oral, qHS promethazine 25 mg oral tablet, 25 mg= 1 tab(s), Oral, q6hr, PRN topiramate 25 mg oral tablet, 25 mg= 1 tab(s), Oral, qHS Allergies Excedrin throat swelling Latex hives Neosporin hives Zithromax throat swelling Immunizations No qualifying data available. Digitally Signed by LEATHA COBB on 05/13/2024 02:18 PM [id number] Consult note Date of Service 05/13/2024 Reason for Consultation Acute on chronic nausea vomiting, RUQ abdominal pain, probable gastroparesis, GERD, dysphagia Referring Physician Dr. Kilgore History of Present Illness The patient is a 29-year-old female, who has a past medical history significant for: Adrenal insufficiency/Wabasso's disease (current treatment consist of fludrocortisone and dexamethasone), Graves' disease/hypothyroidism, T2DM, chronic GERD, obesity, and migraine headaches, who [facility] for further evaluation and treatment of: RUQ abdominal pain, weakness, nausea, vomiting, dizziness, lightheadedness and reported multiple syncopal episodes at home. Prior to that was seen and evaluated at [facility] and was recommended to seek furtherevaluation at [facility]. On arrival patient underwent further evaluation/workup including CT abdomen pelvis and laboratory studies. CT abdomen pelvis with contrast notable for: No acute intra-abdominal abnormalities. Nonacute findings and of of hepatic steatosis with no suspicious focal liver lesions or intra/extrahepatic biliarydilation, ascites or pathologically enlarged lymph nodes. Initial laboratory studies notable for: Normal CBC apart from microcytosis with MCV 76.9 but no leukocytosis, anemia or thrombocytopenia. CMP notable for elevated glucose at 128 and elevated LFTs with T. bili 1.4, AST 157, ALT 224 and alk phos 138. No labs available for baseline comparison. Lipase normal at 31. Troponin normal at < 3. Acute viral hepatitis panel negative. TSH normal at 0.776. Patient was admitted for further management of intractable nausea and vomiting, started on IV fluids and antiemetic therapy. We have been consulted to the patient from a GI standpoint. This morning patient was seen and examined resting in bed. Reports mild improvement in symptoms. She does have a complex medical history as above notable for multiple medical problems. Follows with whipped topping finisher Dr. Aaron Grace at [facility] and she is somewhat of a poor historian on this but believes she underwent an EGD with possible dilation and colonoscopy several years ago. Reports she was told she had "inflammation in her stomach" and possible esophageal ulcer. Previously underwent EGD with dilation for symptoms of dysphagia with improvement in symptoms. Believes her colonoscopy was unremarkable. Also sounds like she underwent gastric emptying study and has a possible history of gastroparesis. She is on prokinetic therapy of Reglan which she takes on an as-needed basisfor chronic nausea and vomiting. Also has a history of multiple endocrine abnormalities and follows with mold operator Dr. Pride at [facility] as well. This morning patient was seen and examined resting in bed. As above has a history of chronic dizziness, nausea, vomiting, however, since Monday she has had increased in symptoms accompanied by poor appetite, RUQ abdominal pain and diarrhea. Patient cannot have any specific trigger for increase in symptoms. Denies recent travel, sick contacts, suspicious food/water intake, antibiotic use, herbal supplements or changes to medications. Reports that diarrhea stools were initially more dark brownin color and then transitioned to pasty. RUQ abdominal pain was aggravated by the intake of food and alleviated with rest, heat, warm showers and baths. Reports a history of chronic GERD, which is gen erally well-controlled with daily PPI therapy of pantoprazole. Reports occasional breakthrough symptoms occurring 1-2 times per month. Also reports intermittent, nonprogressive solid food and pill dysphagia, describes swallowing as "slow and tight". Denies symptoms with liquids. Denies hematemesis,melena or bright red blood per rectum. Believes her weight has remained stable. Reports increased stool frequency and diarrhea with nausea and vomiting. Describes stools as dark brown in color followed by pasty pale stools but denies melena, maroon stools or bright red blood per rectum. Prior to this reports regular, daily bowel movements without changes in bowel habits. Denies use of NSAIDs. Does not take anticoagulants or antiplatelets. Denies use of EtOH. She is a non- smoker. Reports occasional CBD gummy use for management of nausea and vomiting. Reports a family history of liver disease in her mother but is unsure of this etiology. Does have ahistory of multiple abdominal surgeries including appendectomy, hysterectomy and cholecystectomy. Review of Systems 10 system review of systems was completed all pertinent positives were described above and are otherwise negative. Physical Exam Vitals and Measurements T: 36.3 C (Oral) TMIN: 36.0 C (Oral) TMAX: 36.4 C (Oral) HR: 61 RR: 20 BP: 137/92 SpO2: 97% HT: 165cm WT: 93 kg BMI: 34.16 Weight Dosing Weight: 93 kg (05/12/24) Dosing Weight: 93 kg (05/11/24) General Appearance: Patient is alert, well-appearing, in no acute distress. Appropriate mood and affect. HEENT: Head is normocephalic and atraumatic. Conjunctivae are clear without exudates or hemorrhage sclera is nonicteric. Nasal mucosa is pink and moist. Oral mucosa is pink and moist. The pharynx is normal in appearance. Neck supple. Trachea midline. Neck supple. Trachea midline Cardiac: Heart rate and rhythm are normal. S1 and S2 are heard and are of normal intensity. Lungs: No signs of respiratory distress. Lung sounds are clear in all lobes bilaterally without rales, rhonchi, or wheezes. Abdomen: Abdomen is soft, symmetric and nontender without distention. Umbilicus is midline without herniation. Bowel sounds are present in all 4 quadrants. Extremities: No edema noted. Pulses palpable. Neurological: The patient is alert awake and oriented to person,place, and time with normal speech. Skin: Skin is warm and dry. Intact without lesions or rashes. Appropriate color for ethnicity. Lab Results 05/13 06:07 WBC: 8.5 Hgb: 10.5 L Hct: 32.6 L Platelet: 283 Neutrophil %: 55.9 Glucose Level: 79 Sodium Level: 141 Potassium Level: 3.6 BUN: 8.0 Creatinine Lvl (s): 0.71 05/12 12:58 Hgb: 11.5 L 05/12 05:20 WBC: 7.8 Hgb: 11.6 L Hct: 36.4 Platelet: 314 Neutrophil %: 78.3 H Glucose Level: 112 H Sodium Level: 138 Potassium Level: 4.3 BUN: 7.0 L Creatinine Lvl (s): 0.70 Liver Function Test Total Protein: 5.9 G/dL (05/13/24 06:07:00) Albumin Level: 2.9 G/dL Low (05/13/24 06:07:00) Bili Total: 0.7 mg/dL (05/13/24 06:07:00) Alk Phos: 96 U/L (05/13/24 06:07:00) AST/SGOT: 47 U/L High (05/13/24 06:07:00) ALT/SGPT: 115 U/L High (05/13/24 06:07:00) Imaging Results and Diagnostics XR Enteric Tube Placement Result Date: May 12, 2024 Verified By: JOSH PRO, FABRICE Cardenas CLINICAL STATEMENT: IMPRESSION: 1. Enteric tube terminates within the proximal stomach. 2. Hazy airspace opacities within the lungs bilaterally, greater on theright, may represent developing infiltrates versus superimposition of softtissue. A two view chest radiograph should be performed when the patient'scondition permits. CT Abdomen/Pelvis w/Contrast Result Date: May 11, 2024 Verified By: ROBY ALNDAVERDE MD CLINICAL STATEMENT: IMPRESSION: No acute intra-abdominal abnormality identified. Infiltrative stranding of the right anterior abdominal subcutaneous tissueswith overlying skin thickening, probably injection site granuloma. Marked hepatic steatosis. I have personally reviewed the images of this examination and agree with theresident's findings and interpretation. Assessment/Plan Orders: metoclopramide(Reglan), 5 mg= 1 tab(s), Oral, acSupper ondansetron(Zofran), 4 mg= 2 mL, IV Push, q6h, PRN Esophagogastroduodenoscopy(EGD), 05/14/24 8:30:00 EDT, Once, NEYMAR AYALA MD, Intractable nausea and vomiting, RUQ abdominal pain,, Yes, No NPO after Midnight, 05/13/24 23:58:00 EDT, Constant Order US Abdomen Complete, 05/13/24 11:01:00 EDT, 05/13/24 11:01:00 EDT, Routine, Elevated LFTs, RUQ abdominal pain, Full Code, Portable: No, Bed Nurse and Monitor, Isolation: None, IV: No, Oxygen: No, Diabetes: Yes, Wt k, ME4E Problem list: 1. Acute on chronic nausea and vomiting accompanied by weakness, fatigue and acute diarrhea 2. RUQ abdominal pain 3. Probable history of gastroparesis. 4. Possible history of gastritis and esophageal ulcer 5. Dysphagia intermittent, nonprogressive to solids and pills 6. Chronic GERD 8. Microcytosis 9. Elevated LFTs improving 10. Additional comorbidities of: Wabasso's disease/adrenal insufficiency, hypothyroidism, T2DM, obesity and migraine headaches. We been consulted to see the patient for a number of issues including acute on chronic nausea, vomiting, RUQ abdominal pain, intermittent nonprogressive solid food/pill dysphagia and elevated LFTs. Exact etiology of patient's symptoms is unknown, the differential list is quite large but at this point suspect 2/2 flare of probable gastroparesis following infectious gastroenteritis with reports of acute on chronic nausea, vomiting and diarrhea. Right upper quadrant pain could also be from gastroparesis, although she may have a history of PUD as well as possible esophageal stricture, currently reports intermittent, nonprogressive solid food dysphagia. Lower suspicion for biliary pathologies at this point, although LFTs slightly elevated and have improved this morning with T. bili 0.7, AST 47, ALT 115 and alk phos 96. Etiology could be reactive due to acute infectious process and underlyinghepatic steatosis. She notes improvement in symptoms this morning. She has no evidence of overt GI bleeding, hemoglobin has trended downward but at this point suspect 2/2 hemodilution with fluid resus citation. She is currently afebrile hemodynamically stable and on room air. Plan: Okay for clear liquid diet. N.p.o. after midnight. If not already ordered will maximize patient's PPI therapy/increase frequency to twice daily dosing. Obtain abdominal ultrasound. Plan for EGD under MAC anesthesia tomorrow patient was educated on risk versus benefits of the procedure including bleeding, infection, perforation and complications of anesthesia. She verbalizes understanding and is agreeable to proceed. With suspected flare of gastroparesis will place patient on scheduled Reglan 5 mg oral solution 4 times daily. Depending on her response can increase to 10 mg 4 times daily. She can continue this fora month after discharge and then recommend limiting use, although she does use chronically due to the risk of extra pyramidal symptoms including irreversible tardive dyskinesia. Obtain records from [facility] Main campus. Thank you for the consult. Will continue to follow with you. Please call us with questions or concerns. Refer to Dr. Ayala's addendum to my note. Procedure/Surgical History No qualifying data available. Medications Inpatient albuterol, 2.5 mg= 3 mL, Inhalation, q6hRT, PRN clomiPRAMINE, 100 mg= 2 cap(s), Oral, BID Dextrose 50% IV Push, 12.5 gram(s)= 25 mL, IV Push, AsDirected, PRN Dilaudid, 0.5 mg= 0.5 mL, IV Push, q4h, PRN DuoNeb, 3 mL, Inhalation, q4hRT, PRN fludrocortisone, 0.1 mg= 1 tab(s), Oral, qDay HumaLOG 100 units/mL subcutaneous solution, Give 0-5 units/dose, Subcutaneous, TIDAC hydrocortisone, 50 mg, IV Push, BID levothyroxine, 125 mcg= 1 tab(s), Oral, qDay LORazepam, 1 mg= 1 tab(s), Oral, BID, PRN lurasidone, 40 mg= 1 tab(s), Oral, qDay melatonin, 3 mg= 1 tab(s), Oral, qHS, PRN NS 1,000 mL, 1000 mL, Intravenous prazosin, 2 mg= 1 cap(s), Oral, qHS Protonix IV Push, 40 mg, IV Push, BIDAC Reglan, 5 mg= 1 tab(s), Oral, acSupper topiramate, 25 mg= 1 tab(s), Oral, qHS Tylenol, 650 mg= 2 tab(s), Oral, q4h, PRN Zofran, 4 mg= 2 mL, IV Push, q6h, PRN Home Aimovig SureClick Autoinjector 70 mg/mL subcutaneous solution, 70 mg, Subcutaneous, qmonth Albuterol (Eqv-Ventolin HFA) 90 mcg/inh inhalation aerosol, 1 puff(s), Inhalation, q6hr, PRN atorvastatin 10 mg oral tablet, 10 mg= 1 tab(s), Oral, qHS clomiPRAMINE 50 mg oral capsule, 100 mg= 2 cap(s), Oral, BID dexAMETHasone 0.5 mg oral tablet, 0.5 mg= 1 tab(s), Oral, BID eletriptan 40 mg oral tablet, 40 mg= 1 tab(s), Oral, Daily, PRN fludrocortisone 0.1 mg oral tablet, 0.1 mg= 1 tab(s), Oral, qDay Jardiance 10 mg oral tablet, 10 mg= 1 tab(s), Oral, qAM levothyroxine 125 mcg (0.125 mg) oral tablet, 125 mcg= 1 tab(s), Oral, qDay LORazepam 1 mg oral tablet, 1 mg= 1 tab(s), Oral, BID, PRN lurasidone 40 mg oral tablet, 40 mg= 1 tab(s), Oral, qDay metoclopramide 5 mg oral tablet, 5 mg= 1 tab(s), Oral, q8h, PRN pantoprazole 40 mg oral enteric coated tablet, 40 mg= 1 tab(s), Oral, qDay prazosin 2 mg oral capsule, 2 mg= 1 cap(s), Oral, qHS promethazine 25 mg oral tablet, 25 mg= 1 tab(s), Oral, q6hr, PRN topiramate 25 mg oral tablet, 25 mg= 1 tab(s), Oral, qHS Allergies Excedrin throat swelling Latex hives Neosporin hives Zithromax throat swelling Immunizations No qualifying data available. Digitally Signed by LEATHA COBB on 05/13/2024 02:18 PM [id number] G[facility] Consult note Date of Service 05-13-2024 This is a 29-year-old female with past medical history significant for Slade's disease, diabetes,hypothyroidism, obesity, chronic GERD and history of possible gastroparesis on Reglan at home, she follows up with whipped topping finisher at [facility] because undergoing endoscopy and a colonoscopy in the last couple of years. She comes in with right upper quadrant abdominal pain, weakness associated with nausea vomiting andshe gives history of diarrhea lasting for couple of days last week. On presentation, she was noted to have mildly abnormal LFTs, CT scan was positive for hepatic steatosis. Hepatitis panel was negative. She recalls being diagnosed with gastroparesis and also recalls having an esophageal ulcer on her endoscopy and requiring dilation. Problem list: Intractable nausea vomiting Abdominal pain History of gastroparesis Suspect possible flare of gastroparesis. History of GERD Abnormal LFTs likely from GROSS. Hepatic steatosis. Patient denies drinking alcohol. Plan: Proceed with upper endoscopy tomorrow for further evaluation. PPI, antiemetic therapy. Suspect this is a postinfectious gastroparesis flare. RUQ US Patient understands what the procedure involves including the benefits and any risks. Patient understands alternatives to the proposed procedure. Risks including (but not limited to) bleeding, tearing of the lining (perforation), rupture of adjacent organs, problems with heart and lung function, infection, IV site reactions, medication reactions. A small percentage of polyps and other tumors may not be seen. A small percentage of complications may require surgery, hospitalization, repeat endoscopic procedure, and/or transfusion. Digitally Signed by NEYMAR AYALA MD on 05/13/2024 02:12 PM [facility] [id number] Note ORIGINAL EXAMINATION: ONE SUPINE XRAY VIEW(S) OF THE ABDOMEN 05/12/2024 3:42 am COMPARISON: CT abdomen and pelvis May 11, 2024 HISTORY: ORDERING SYSTEM PROVIDED HISTORY: Reason for Exam: NG TUBE PLACEMENT FINDINGS: There is an enteric tube with the tip and side port projecting in the region of the proximal stomach. Retained oral contrast is seen within the colon. No disproportionately dilated loops of bowel. Supine technique limits the evaluation of air-fluid levels and free air. No acute osseous abnormality. Hazy airspace opacity throughout the majority of the right lung and at the left mid to lower lung. IMPRESSION: 1. Enteric tube terminates within the proximal stomach. 2. Hazy airspace opacities within the lungs bilaterally, greater on the right, may represent developing infiltrates versus superimposition of soft tissue. A two view chest radiograph should be performed when the patient's condition permits. Interpreted by: Fabrice Moreno MD Preliminary Report By: Fabrice Moreno MD Electronically signed By Fabrice Moreno MD Dictated Date: 05/12/2024 8:16:03 AM Prelim Date: 05/12/2024 8:21:28 AM Sign Date: 05/12/2024 8:21:28 AM Ordering Provider: [facility], [place], operated by [facility]07-20-2024 Note ORIGINAL EXAMINATION: CT OF THE ABDOMEN AND PELVIS WITH CONTRAST05/11/2024 10:18 pm TECHNIQUE: CT of the abdomen and pelvis was performed with the administration of intravenous contrast. Multiplanar reformatted images are provided for review. Automated exposure control, iterative reconstruction, and/or weight based adjustment of the mA/kV was utilized to reduce the radiation dose to as low as reasonably achievable. COMPARISON: None HISTORY: ORDERING SYSTEM PROVIDED HISTORY: Reason for Exam: NAUSEA VOMITING WEAKNESS GENERAL ABD PAIN abdominal pain FINDINGS: Marked diffuse hypoattenuation of the liver, with some focal areas of hyperattenuation seen; these findings consistent with hepatic steatosis with fatty sparing. No suspicious hepatic lesions.There is no intra or extrahepatic biliary duct dilation.Surgically absent gallbladder. The pancreas, and bilateral adrenal glands are unremarkable. Calcified granulomas within the spleen. The kidneys enhance symmetrically.No hydronephrosis.No suspicious renal lesions. The urinary bladder is unremarkable within the confines of under distension. Surgically absent uterus. Left adnexal cyst up to 2.7 cm; no follow-up is required. No acute abnormality of the visualized GI tract.Nonvisualized appendix; no pericecal inflammation. No pathologically enlarged or aggressive appearing lymph nodes. Nonaneurysmal aortoiliac arteries. Circumaortic left renal vein. Small focus of infiltrative stranding of the anterior right abdominal wall subcutaneous adipose tissue. There is mild overlying skin thickening. Few foci of air are seen within. No drainable fluid collection. No acute osseous abnormality.No aggressive osseous lesions. No acute or suspicious abnormality within the partially visualized lower thorax.Bibasilar dependent atelectasis. Calcified granuloma at the left lung base. IMPRESSION: No acute intra-abdominal abnormality identified. Infiltrative stranding of the right anterior abdominal subcutaneous tissues with overlying skin thickening, probably injection site granuloma. Marked hepatic steatosis. I have personally reviewed the images of this examination and agree with the resident's findings and interpretation. Interpreted by: Roby Landaverde Preliminary Report By: Jono Perez Electronically signed By Roby Landaverde Dictated Date: 05/11/2024 10:21:18 PM Prelim Date: 05/11/2024 10:33:37 PM Sign Date: 05/11/2024 11:22:54 PM Ordering Provider: [facility], [place], operated by [facility]07-20-2024 History and physical note Chief Complaint Patient states that she has been feeling weak, nauseous, dizzy, and light headed. Patient denies all other symptoms. History of Present Illness 29-year-old lady past medical history of adrenal insufficiency on Florinef and dexamethasone, hypothyroidism, GERD, obesity presents due to intractable nausea and vomiting unable to keep any food down going on for last 4 days. She mention she gets nauseous and dizzy and she passed out. He also reports pain in the right upper quadrant region. She does not have a gallbladder anymore but did mentionthat when she has issues with her adrenals she ends up having abdominal pain. She was recently placed on dexamethasone about 3 months ago and mention she feels like after being changed from hydrocortisone to dexamethasone that is when she started feeling very nauseous. Blood pressure initially 130/95 dropped to 117/76. Lab work with LFTs bilirubin of 1.4, alk phos of 131, AST of 157, ALT of 224. Lipase of 31. White count 8400. She also mentioned that her LFTs always elevated when she has issueswith her adrenals. She mention when she gets the past she usually needs tube feeds given her diminished oral intake. Patient has been admitted for adrenal sufficiency intractable nausea and vomiting. Review of Systems 14 point review of system was discussed and reviewed as negative unless otherwise specified above Physical Exam Vitals and Measurements T: 35.8 C (Temporal Artery) HR: 70 RR: 18 BP: 117/76 SpO2: 94% HT: 165 cm WT: 93 kg Weight Dosing Weight: 93 kg (05/11/24) General- in no acute distress, alert Cardiac- Normal S1 S2, with no murmur rubs or gallops, no edema HEENT- PERRLA, eyes- sclera nonicteric, oral mucosa moist Lungs- Clear to auscultation bilaterally Abdomen-right upper quadrant tender to palpation, positive bowel sounds Neurology- No focal neuro deficit, follows command Skin- no rash Psychiatry- oriented x3 Assessment 1. Intractable nausea and vomiting 2. Adrenal insufficiency 3. Right upper quadrant abdominal pain 4. Elevated LFTs Plan 1. At this time we will go ahead and start on hydrocortisone IV. Given 100 mg hydrocortisone push x1. Start on 50 mg every 8 hours. Continue Florinef. NG tube ordered for tube feeds. CT abdomen pelvis. IV hydration. Antiemetics with Reglan. Pain control. Monitor LFTs. DVT prophylaxis. Cortisol andTSH level. This document was transcribed using a voice recognition software and may contain typographical errors. Lab Results 05/11 14:29 WBC: 8.4 Hgb: 12.3 Hct: 38.3 Platelet: 335 Neutrophil %: 75.5 H Glucose Level: 112 H Sodium Level: 138 Potassium Level: 3.6 BUN: <5.0 L Creatinine Lvl (s): 0.65 EKG EC05/11/24: SINUS RHYTHM LOW VOLTAGE, PRECORDIAL LEADS NONSPECIFIC T ABNORMALITIES, DIFFUSE LEADS This EKG was read and contributed directly to the care of the patient Electronic Signature: DEDE QUIROS MD 05/11/2024 15:50:23 Assessment/Plan Orders: acetaminophen(Tylenol), 650 mg= 2 tab(s), Oral, q4h, PRN albuterol-ipratropium(DuoNeb), 3 mL, Inhalation, q4hRT, PRN clomiPRAMINE, 100 mg= 2 cap(s), Oral, BID empagliflozin(Jardiance), 10 mg= 1 tab(s), Oral, qAM enoxaparin(Lovenox), 40 mg= 0.4 mL, Subcutaneous, qDay fludrocortisone, 0.1 mg= 1 tab(s), Oral, qDay glucose(Dextrose 50% IV Push), 12.5 gram(s)= 25 mL, IV Push, AsDirected, PRN hydrocortisone, 50 mg, IV Push, q8h hydrocortisone, 100 mg, IV Push, now HYDROmorphone(Dilaudid), 0.5 mg= 0.5 mL, IV Push, q4h, PRN levothyroxine, 125 mcg= 1 tab(s), Oral, qDay LORazepam, 1 mg= 1 tab(s), Oral, BID, PRN lurasidone, 40 mg= 1 tab(s), Oral, qDay melatonin, 3 mg= 1 tab(s), Oral, qHS, PRN metoclopramide(Reglan), 10 mg= 2 mL, IV Push, q6hr, PRN pantoprazole, 40 mg= 1 tab(s), Oral, qDay prazosin, 2 mg= 1 cap(s), Oral, qHS Sodium Chloride 0.9% intravenous solution 1,000 mL(NS 1,000 mL), 1000 mL, Intravenous topiramate, 25 mg= 1 tab(s), Oral, qHS Ambulate, 05/11/24 18:29:00 EDT, PRN Order Basic Metabolic Panel(BMP), 05/12/24 5:00:00 EDT, Next AM Draw (one day only), Blood, Once, Nurse Collect, Stop date 05/12/24 5:00:00 EDT Blood Glucose Call Parameter, 05/11/24 18:29:00 EDT, If patient is NPO for x-ray or surgery and hypoglycemic, call physician for further orders, 05/11/24 18:29:00 EDT Blood Glucose Call Parameter, 05/11/24 18:29:00 EDT, call provider if patient's blood glucose is <70mg/dL, 05/11/24 18:29:00 EDT Blood Glucose Monitoring Bedside PRN, 05/11/24 18:29:00 EDT, PRN Order, For signs/symptoms of hypoglycemia Communication Order (continuous), 05/11/24 18:29:00 EDT, Stat EKG will be obtained in the setting of new, ongoing or worsening chest discomfort/acute coronary syndrome symptoms in all nursing units and/or rhythm change in all monitored units., 05/11/24 18:29:00 EDT Complete Blood Count(CBC), 05/12/24 5:00:00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 Serologic workup with positive ASmMuA 1:80, immune to hep B. RUQ US normal. WBC low 2.00, Hgb 11.3 Liver enzymes returned to normal by 07/05/2022 Hx Cholycystectomy 2020 Hx EGD 11/2021 OSH with esophagitis Hx THC use Abdominal cramping 06/27/2017 1 Epiglottitis 07/03/2014 07/30/2014 Overview: She has a viral infections that is Last Assessment & Plan: She has been having sore throat since 4 days, Post nasal drainage, Threw up all day Monday, couldn't breathe, also had severe cough. Chest hurting. Went to er , was told she had viral pharyngitis and bronchitis. She cannot swallow at this point, And has trouble breathing. Her saliva is pooling. She also has asthma and doesn't not have a inhaler at this point. 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 Serologic workup with positive ASmMuA 1:80, immune to hep B. RUQ US normal. WBC low 2.00, Hgb 11.3 Liver enzymes returned to normal by 07/05/2022 Hx Cholycystectomy 2020 Hx EGD 11/2021 OSH with esophagitis Hx THC use Abdominal cramping 06/27/2017 1 Epiglottitis 07/03/2014 07/30/2014 Overview: She has a viral infections that is Last Assessment & Plan: She has been having sore throat since 4 days, Post nasal drainage, Threw up all day Monday, couldn't breathe, also had severe cough. Chest hurting. Went to er , was told she had viral pharyngitis and bronchitis. She cannot swallow at this point, And has trouble breathing. Her saliva is pooling. She also has asthma and doesn't not have a inhaler at this point. 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 Serologic workup with positive ASmMuA 1:80, immune to hep B. RUQ US normal. WBC low 2.00, Hgb 11.3 Liver enzymes returned to normal by 07/05/2022 Hx Cholycystectomy 2020 Hx EGD 11/2021 OSH with esophagitis Hx THC use Abdominal cramping 06/27/2017 Epiglottitis 07/03/2014 07/30/2014 Overview: She has a viral infections that is Last Assessment & Plan: She has been having sore throat since 4 days, Post nasal drainage, Threw up all day Monday, couldn't breathe, also had severe cough. Chest hurting. Went to er , was told she had viral pharyngitis and bronchitis. She cannot swallow at this point, And has trouble breathing. Her saliva is pooling. She also has asthma and doesn't not have a inhaler at this point. 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 Serologic workup with positive ASmMuA 1:80, immune to hep B. RUQ US normal. WBC low 2.00, Hgb 11.3 Liver enzymes returned to normal by 07/05/2022 Hx Cholycystectomy 2020 Hx EGD 11/2021 OSH with esophagitis Hx THC use Abdominal cramping 06/27/2017 Epiglottitis 07/03/2014 07/30/2014 Overview: She has a viral infections that is Last Assessment & Plan: She has been having sore throat since 4 days, Post nasal drainage, Threw up all day Monday, couldn't breathe, also had severe cough. Chest hurting. Went to er , was told she had viral pharyngitis and bronchitis. She cannot swallow at this point, And has trouble breathing. Her saliva is pooling. She also has asthma and doesn't not have a inhaler at this point. 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 Serologic workup with positive ASmMuA 1:80, immune to hep B. RUQ US normal. WBC low 2.00, Hgb 11.3 Liver enzymes returned to normal by 07/05/2022 Hx Cholycystectomy 2020 Hx EGD 11/2021 OSH with esophagitis Hx THC use Abdominal cramping 06/27/2017 1 Epiglottitis 07/03/2014 07/30/2014 Overview: She has a viral infections that is Last Assessment & Plan: She has been having sore throat since 4 days, Post nasal drainage, Threw up all day Monday, couldn't breathe, also had severe cough. Chest hurting. Went to er , was told she had viral pharyngitis and bronchitis. She cannot swallow at this point, And has trouble breathing. Her saliva is pooling. She also has asthma and doesn't not have a inhaler at this point. 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 Serologic workup with positive ASmMuA 1:80, immune to hep B. RUQ US normal. WBC low 2.00, Hgb 11.3 Liver enzymes returned to normal by 07/05/2022 Hx Cholycystectomy 2020 Hx EGD 11/2021 OSH with esophagitis Hx THC use Abdominal cramping 06/27/2017 1 Epiglottitis 07/03/2014 07/30/2014 Overview: She has a viral infections that is Last Assessment & Plan: She has been having sore throat since 4 days, Post nasal drainage, Threw up all day Monday, couldn't breathe, also had severe cough. Chest hurting. Went to er , was told she had viral pharyngitis and bronchitis. She cannot swallow at this point, And has trouble breathing. Her saliva is pooling. She also has asthma and doesn't not have a inhaler at this point. 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 Serologic workup with positive ASmMuA 1:80, immune to hep B. RUQ US normal. WBC low 2.00, Hgb 11.3 Liver enzymes returned to normal by 07/05/2022 Hx Cholycystectomy 2020 Hx EGD 11/2021 OSH with esophagitis Hx THC use Abdominal cramping 06/27/2017 Epiglottitis 07/03/2014 07/30/2014 Overview: She has a viral infections that is Last Assessment & Plan: She has been having sore throat since 4 days, Post nasal drainage, Threw up all day Monday, couldn't breathe, also had severe cough. Chest hurting. Went to er , was told she had viral pharyngitis and bronchitis. She cannot swallow at this point, And has trouble breathing. Her saliva is pooling. She also has asthma and doesn't not have a inhaler at this point. documented as of this encounter (statuses as of 01/12/2024) [facility] History of Past illness Narrative* Problem Noted Date Diagnosed Date Resolved Date Obesity, Class I, BMI 30-34.9 05/12/2023 12/06/2023 Seizure 09/13/2021 02/06/2023 Slaed's disease 09/07/2021 11/18/2022 Overview: Endo: Dr. 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 Serologic workup with positive ASmMuA 1:80, immune to hep B. RUQ US normal. WBC low 2.00, Hgb 11.3 Liver enzymes returned to normal by 07/05/2022 Hx Cholycystectomy 2020 Hx EGD 11/2021 OSH with esophagitis Hx THC use Abdominal cramping 06/27/2017 Epiglottitis 07/03/2014 07/30/2014 Overview: She has a viral infections that is Last Assessment & Plan: She has been having sore throat since 4 days, Post nasal drainage, Threw up all day Monday, couldn't breathe, also had severe cough. Chest hurting. Went to er , was told she had viral pharyngitis and bronchitis. She cannot swallow at this point, And has trouble breathing. Her saliva is pooling. She also has asthma and doesn't not have a inhaler at this point. documented as of this encounter (statuses as of 01/23/2024) [facility] NoteHNO ID: [id number] Author: Sachi Tena MD Service: Endocrinology Author Type: Physician Type: Progress Notes Filed: 05/12/2023 1:38 PM Note Text: Endocrinology Progress SERVICE DATE: 05/12/2023 SERVICE TIME: 08:01 CONSULTING SERVICE: Endocrinology REQUESTING PROVIDER: Consultation requested by Evelyn Padilla APRN.HEALTH CLUB MANAGER Chart reviewed-possible D/C today DIAGNOSIS: Wabasso's Disease, hypothyroidism Subjective CHIEF COMPLAINT: Weakness, fatigue, dizziness, abdominal pain HPI: Patient is a 28-year-old female who initially presented to the [facility] emergency department earlier this week for further evaluation of weakness, fatigue, dizziness, and abdominal pain. According to the patient following an unrevealing work-up she was discharged home and given a prescription for meclizine for what the emergency department provider thought was "vertigo". Patient says she took the meclizine as prescribed but did not achieve relief in her symptoms. Patient has known Wabasso's Disease and follows with endocrinology in the outpatient setting, had contacted Dr. Pride and was told to return to ER. Patient was found to have elevated liver enzymes, and transfer to [facility] was initiated. Given IV steroids last pm Outpatient regimen includes Florinef 0.1mg daily, dexamethasone 1mg daily Januvia 100mg daily, precose 25mg TID with meals, amaryl 1mg for BS >160 Also with history of total thyroidectomy for graves disease PAST MEDICAL HISTORY Diagnosis Date Anxiety Arthritis [...] Chavez THYROIDECTOMY TOTAL/COMPLETE 2015 graves disease / F VAGINAL HYSTERECTOMY FAMILY HISTORY Problem Relation Age [...] Social History Tobacco Use Smoking status: Former Packs/day: 0.50 Years: 8.00 Total pack years: 4.00 Types: Cigarettes Quit date: 10/17/2015 Years since quittin.5 Smokeless tobacco: Never Tobacco comments: quit on 10/17/15 Vaping Use Vaping Use: Never used Substance Use Topics Alcohol use: Not Currently Comment: socially Drug use: Not Currently Comment: CBD products Current Facility-Administered Medications Medication Dose Route Frequency Provider Last Rate Last Admin oxyCODONE IR 5-10 mg tab(s) (ROXICODONE) 5-10 mg ORAL q 4 H PRN Duarte Wall APRN.HEALTH CLUB MANAGER 10 mg at 05/12/23 0553 HYDROmorphone (PF) 0.5 mg injection (DILAUDID) 0.5 mg INTRAVENOUS q 6 H PRN Duarte Wall APRN.HEALTH CLUB MANAGER 0.5 mg at 05/12/23 0231 piperacillin-tazobactam iv piggyback 3.375 g in dextrose (iso-osmotic) 50 mL (ZOSYN) 3.375 g INTRAVENOUS q 6 H Sharon Grant FIELD RESEARCH ASSISTANT.HEALTH CLUB MANAGER Stopped at 05/12/23 0623 diphenhydrAMINE 12.5 mg injection (BENADRYL) 12.5 mg INTRAVENOUS q 6 H PRN Evelyn Padilla APRN.HEALTH CLUB MANAGER 12.5 mg at 05/10/23 1103 LORazepam 0.5 mg tab(s) (ATIVAN) 0.5 mg ORAL TID PRN Evelyn Padilla APRN.HEALTH CLUB MANAGER 0.5 mg at 05/11/23 2144 clomiPRAMINE 100 mg cap(s) (ANAFRANIL) 100 mg ORAL AT BEDTIME Evelyn Padilla APRN.HEALTH CLUB MANAGER 100 mg at 05/11/232014 dexAMETHasone 1 mg tab(s) (DECADRON) 1 mg ORAL DAILY WITH BREAKFAST Alicia Teresa MD 1 mg at 05/12/23 0758 fludrocortisone 0.1 mg tab(s) (FLORINEF) 0.1 mg ORAL DAILY Alicia Teresa MD 0.1 mg at 05/12/23 0758 ondansetron (PF) 4 mg injection (ZOFRAN) 4 mg INTRAVENOUS q 8 H PRN Jamil Johnson APRN.HEALTH CLUB MANAGER 4 mg at 05/09/23 204 NaCl 0.9% iv infusion 150 mL/hr INTRAVENOUS CONTINUOUS Evelyn Padilla APRN.HEALTH CLUB MANAGER 150 mL/hr at 05/11/23 2340 150 mL/hr at 05/11/23 2340 NaCl 0.9% iv flush bag 20 mL INTRAVENOUS PRN Jose Guadalupe Garcia DO heparin 5,000 Units injection 5,000 Units SUBCUTANEOUS q 12 H Jose Guadalupe Garcia, 5,000 Units at 05/12/23 0759 busPIRone (BUSPAR) tab(s) 15 mg 15 mg ORAL BID Jose Guadalupe Garcia DO 15 mg at 05/12/23 0758 sucralfate 1 g CUP (CARAFATE) 1 g ORAL BID Jose Guadalupe Garcia, DO 1 g at 05/12/23 0801 gabapentin 200 mg cap(s) (NEURONTIN) 200 mg (more content not included)...[facility]07-20-2023 NoteHNO ID: [id number] Author: Duarte Wall APRN.HEALTH CLUB MANAGER Service: Hospital Medicine Author Type: Nurse Practitioner Type: Progress Notes Filed: 05/11/2023 6:07 PM Note Text: DEPARTMENT OF HOSPITAL MEDICINE PROGRESS NOTE SERVICE DATE: 05/11/2023 SERVICE TIME: 12:45 PM Hospital Medicine/Primary Attending: Duarte Wall APRN.HEALTH CLUB MANAGER HPI: Chief complaint: Weakness, fatigue, dizziness, abdominal pain 28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 According to the patient her work-up was unrevealing and she was discharged home with a prescription for meclizine for vertigo. The patient contacted her mold operator that she had concerns of possible Wabasso's crisis and was encouraged to go back to the emergency department. Her work-up at the outside hospital revealed elevated liver enzymes ALT of 711 AST 466 and total bili was within normal limits the patient also reports that abdominal imaging was unrevealing she was admitted to [facility] for GI consult for her elevated liver enzymes. Subjective INTERVAL HPI: 05/10:Patient was seen and examined. Remains with right upper abdominal pain, requiring pain medication. LFTs are trending down. MRCP completed yesterday shows no acute finding, mild hepatic steatosis. No acute events overnight. 05/11: Patient seen and examined, she is still complaining of right upper abdominal pain requiring pain medication [id number]. Increased frequency of Percocet to q4 PRN 1-2 tabs and told patient that plan is to wean from dilaudid. MEDICATIONS: Reviewed Objective PHYSICAL EXAM: BP 104/70 Pulse 78 Temp (Src) 97.9 (Oral) Resp 16 Ht 5' 5" (1.65m) Wt 192 lb 10.9 oz (87.4kg) SpO2 98% LMP 11/27/2019 BMI 32.06 kg/(m2). O2 Therapy: Room Air Physical Exam Performed General - AANDOx3, NAD CV - HS I +II, regular, no murmurs RESP -clinically clear to auscultation ABD - soft, +BS, nontender, no palpable organs EXT -no bilateral leg edema NEURO - CN II-XII grossly intact, no focal deficits DATA: Diagnostic tests reviewed for today's visit: Most recent labs and imaging results. CBC, Coags, BMP, Mg, Phos Recent Labs 05/11/23 0511 05/10/23 0943 05/09/23 0902 WBC -- 8.74 11.92* HB -- 11.1* 11.7 HCT -- 34.7* 36.2 PLT -- 324 356 NA 141 141 -- K 4.0 3.3* -- CHLOR 104 105 -- CO2 27 28 -- BUN 9 8 -- CREAT 0.64 0.71 -- GLUC 87 102* -- CA 9.1 8.8 -- Liver Function, Amylase, AND Lipase Recent Labs 05/11/23 0511 05/10/23 0943 05/09/23 0517 TPROT 6.8 6.6 7.7 ALB 3.3 3.1* 3.5 ALT 324* 414* 638* AST 33 57* 101* ALKPHOS 107 114 133* TBILI 0.6 0.9 0.9 Cardiac Enzymes Assessment/Plan Principal Problem: #) Elevated liver enzymes (POA: Yes) Assessment AND Plan: - Uncertain etiology however differential diagnosis would include Slade's crisis, infectious course pathology - Continue IV fluids, pain and nausea medication - GI was consulted, MRCP shows no acute finding, mild hepatic steatosis. - Continue empiric abx with Zosyn 3.375 g Q6H - Trend LFTs now on the down trend ALT 324/414, AST 33, Alkaline phos 107 #) Nonepileptic seizure - Controlled by vimpat 100 mg p.o. twice daily #) Bipolar, depression, anxiety, PTSD, obsessive-compulsive disorder - Continue BuSpar 15 mg p.o. twice daily, Zoloft 50 mg p.o. daily, Anafranil 100 mg p.o. at bedtime #) Wabasso's disease - Patient with a history of Wabasso's disease, vitals remained stable electrolytes normal and likely that disease is impacting liver enzymes. GI is following and endocrine #) Hypothyroidism - Continue levothyroxine 125 mcg p.o. daily #) Diabetes Mellitus type 2 - Continue Accu-Cheks with meals and at bedtime and sliding scale insulin - Blood sugar 90 - 166 #) Upper extremity edema - Concerning for DVT, doppler US negative for DVT DVT prophylaxis with heparin subcu every 12 CODE STATUS: Full code Resolved Problems: * No resolved hospital problems. * Medication and Non-Pharmacologic VTE Prophylaxis/Anticoagulants Anticoagulant AND Antiplatelet Medications (From admission, onward) Start Dose Route Frequency Last Action Ordered Stop 05/03/23 0930 heparin 5,000 Units injection 5,000 Units SUBCUTANEOUS EVERY 12 HOURS Given, 05/11 0916 05/03/23 0913 -- 05/03/23 0700 vte current anticoag therapy (ma,oh) VTE Prophylaxis: VTE prophylaxis appropriate Disposition: home when LFTs are back to normal Plan of care discussed with: Provider, RN, Patient SIGNATURE: Duarte Wall APRN.CNP PATIENT NAME: Sonia Szymanski DATE: May 11, 2023 TIME: 12:45 PM PAGER/CONTACT #: [phone] Please Note: (more content not included)...[facility]07-20-2023 NoteHNO ID: [id number] Author: Sachi Tena MD Service: Endocrinology Author Type: Physician Type: Progress Notes Filed: 05/11/2023 12:51 PM Note Text: Endocrinology Progress SERVICE DATE: 05/11/2023 SERVICE TIME: 08:22 CONSULTING SERVICE: Endocrinology REQUESTING PROVIDER: Consultation requested by Evelyn Padilla APRN.HEALTH CLUB MANAGER Chart reviewed DIAGNOSIS: Slade's Disease, hypothyroidism Subjective CHIEF COMPLAINT: Weakness, fatigue, dizziness, abdominal pain HPI: Patient is a 28-year-old female who initially presented to the [facility] emergency department earlier this week for further evaluation of weakness, fatigue, dizziness, and abdominal pain. According to the patient following an unrevealing work-up she was discharged home and given a prescription for meclizine for what the emergency department provider thought was "vertigo". Patient says she took the meclizine as prescribed but did not achieve relief in her symptoms. Patient has known Wabasso's Disease and follows with endocrinology in the outpatient setting, had contacted Dr. Pride and was told to return to ER. Patient was found to have elevated liver enzymes, and transfer to [facility] was initiated. Given IV steroids last pm Outpatient regimen includes Florinef 0.1mg daily, dexamethasone 1mg daily Januvia 100mg daily, precose 25mg TID with meals, amaryl 1mg for BS >160 Also with history of total thyroidectomy for graves disease PAST MEDICAL HISTORY Diagnosis Date Anxiety Arthritis [...] Chavez THYROIDECTOMY TOTAL/COMPLETE 2015 graves disease / F VAGINAL HYSTERECTOMY FAMILY HISTORY Problem Relation Age [...] Social History Tobacco Use Smoking status: Former Packs/day: 0.50 Years: 8.00 Total pack years: 4.00 Types: Cigarettes Quit date: 10/17/2015 Years since quittin.5 Smokeless tobacco: Never Tobacco comments: quit on 10/17/15 Vaping Use Vaping Use: Never used Substance Use Topics Alcohol use: Not Currently Comment: socially Drug use: Not Currently Comment: CBD products Current Facility-Administered Medications Medication Dose Route Frequency Provider Last Rate Last Admin piperacillin-tazobactam iv piggyback 3.375 g in dextrose (iso-osmotic) 50 mL (ZOSYN) 3.375 g INTRAVENOUS q 6 H Sharon Grant APRN.HEALTH CLUB MANAGER Stopped at 05/11/23 0641 diphenhydrAMINE 12.5 mg injection (BENADRYL) 12.5 mg INTRAVENOUS q 6 H PRN Evelyn Padilla APRN.HEALTH CLUB MANAGER 12.5 mg at 05/10/23 1103 HYDROmorphone (PF) 0.5 mg injection (DILAUDID) 0.5 mg INTRAVENOUS q 3 H PRN Evelyn Padilla APRN.HEALTH CLUB MANAGER 0.5 mg at 05/11/23 06 LORazepam 0.5 mg tab(s) (ATIVAN) 0.5 mg ORAL TID PRN Evelyn Padilla APRN.HEALTH CLUB MANAGER 0.5 mg at 05/09/232047 clomiPRAMINE 100 mg cap(s) (ANAFRANIL) 100 mg ORAL AT BEDTIME Evelyn Padilla APRN.HEALTH CLUB MANAGER 100 mg at 05/10/232003 dexAMETHasone 1 mg tab(s) (DECADRON) 1 mg ORAL DAILY WITH BREAKFAST Alicia Teresa MD 1 mg at 05/10/23 07 fludrocortisone 0.1 mg tab(s) (FLORINEF) 0.1 mg ORAL DAILY Alicia Teresa MD 0.1 mg at 05/10/23 07 oxyCODONE IR 5 mg tab(s) (ROXICODONE) 5 mg ORAL q 6 H PRN Jamil Johnson APRN.HEALTH CLUB MANAGER 5 mg at 05/11/23 0411 ondansetron (PF) 4 mg injection (ZOFRAN) 4 mg INTRAVENOUS q 8 H PRN Jamil Johnson APRN.HEALTH CLUB MANAGER 4 mg at 05/09/23 204 NaCl 0.9% iv infusion 150 mL/hr INTRAVENOUS CONTINUOUS Evelyn Padilla APRN.HEALTH CLUB MANAGER 150 mL/hr at 05/10/23 1219 150 mL/hr at 05/10/23 1219 NaCl 0.9% iv flush bag 20 mL INTRAVENOUS PRN Jose Guadalupe Garcia DO heparin 5,000 Units injection 5,000 Units SUBCUTANEOUS q 12 H KanJose Guadalupe marcos, DO 5,000 Units at 05/10/232003 busPIRone (BUSPAR) tab(s) 15 mg 15 mg ORAL BID Jose Guadalupe Garcia, DO 15 mg at 05/10/232003 sucralfate 1 g CUP (CARAFATE) 1 g ORAL BID Mag Garcianathan, DO 1 g at 05/10/232003 gabapentin 200 mg cap(s) (NEURONTIN) 200 mg ORAL AT BEDTIME Alo Garcia (more content not included)...[facility]07-19-2023 NoteHNO ID: [id number] Author: Herman Maldonado MD Service: Gastroenterology Author Type: Physician Type: Progress Notes Filed: 05/10/2023 1:27 PM Note Text: GI CONSULT PROGRESS NOTE SERVICE DATE: 05/10/2023 SERVICE TIME: 1:25 PM CONSULTING SERVICE: Gastroenterology Subjective patient is sleeping INTERVAL HPI: No change clinically, liver numbers continue to trend down, all work-up has been negative, Current Facility-Administered Medications Medication Dose Route Frequency oxyCODONE IR 5 mg tab(s) (ROXICODONE) 5 mg ORAL q 6 H PRN ondansetron (PF) 4 mg injection (ZOFRAN) 4 mg INTRAVENOUS q 8 H PRN NaCl 0.9% iv infusion 150 mL/hr INTRAVENOUS CONTINUOUS NaCl 0.9% iv flush bag 20 mL INTRAVENOUS PRN heparin 5,000 Units injection 5,000 Units SUBCUTANEOUS q 12 H busPIRone (BUSPAR) tab(s) 15 mg 15 mg ORAL BID sucralfate 1 g CUP (CARAFATE) 1 g ORAL BID gabapentin 200 mg cap(s) (NEURONTIN) 200 mg ORAL AT BEDTIME lacosamide 100 mg tab(s) (VIMPAT) 100 mg ORAL BID scopolamine 1 mg over 3 days 1 Patch (TRANSDERM-SCOP) 1 Patch TRANSDERMAL q 72 HR hydrOXYchloroQUINE 200 mg tab(s) (PLAQUENIL) 200 mg ORAL BID albuterol 2.5 mg /3 mL (0.083 %) 2.5 mg (PROVENTIL) 2.5 mg INHALATION q [address] 40 mg tab(s) (PROTONIX) 40 mg ORAL DAILY (6 AM) sertraline 50 mg tab(s) (ZOLOFT) 50 mg ORAL DAILY levothyroxine 125 mcg tab(s) (SYNTHROID) 125 mcg ORAL DAILY dextrose 40 % 15 g 15 g ORAL PRN Or glucagon 1 mg injection 1 mg INTRAMUSCULAR PRN Or dextrose 10% iv bolus 12.5 g INTRAVENOUS PRN insulin lispro injection (rapid acting) (HumaLOG) SUBCUTANEOUS w MEALS scopolamine - REMOVE PATCH OTHER q 72 HR And scopolamine - VERIFY patch OTHER q 8 H dexAMETHasone 1 mg tab(s) (DECADRON) 1 mg ORAL DAILY WITH BREAKFAST fludrocortisone 0.1 mg tab(s) (FLORINEF) 0.1 mg ORAL DAILY LORazepam 0.5 mg tab(s) (ATIVAN) 0.5 mg ORAL TID PRN clomiPRAMINE 100 mg cap(s) (ANAFRANIL) 100 mg ORAL AT BEDTIME HYDROmorphone (PF) 0.5 mg injection (DILAUDID) 0.5 mg INTRAVENOUS q 3 H PRN diphenhydrAMINE 12.5 mg injection (BENADRYL) 12.5 mg INTRAVENOUS q 6 H PRN piperacillin-tazobactam iv piggyback 3.375 g in dextrose (iso-osmotic) 50 mL (ZOSYN) 3.375 g INTRAVENOUS q 6 H Objective PHYSICAL EXAM: Physical Exam Performed: Not examined BP 113/73 Pulse 73 Temp (Src) 98.2 (Oral) Resp 18 Ht 5' 5" (1.65m) Wt 192 lb 10.9 oz (87.4kg) SpO2 96% LMP 11/27/2019 BMI 32.06 kg/(m2). O2 Therapy: Room Air DATA: Diagnostic tests reviewed for today's visit: Most recent labs and imaging results. Impression/Recommendations Acute hepatitis resolving, with resolving transaminitis, I have no good explanation for this to have happened except possible episode of hypotension that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 [facility]ated[facility]-2023 NoteHNO ID: [id number] Author: Evelyn Padilla APRN.HUY Service: ? Author Type: Nurse Practitioner Type: Progress Notes Filed: 05/08/2023 5:25 PM Note Text: INPATIENT PROGRESS NOTE PRIMARY SERVICE: Hospitalist Subjective EMR notes reviewed patient seen and examined. Overall slight improvement today still with significant amount of right upper abdominal pain and overall just feels poorly with nausea and anxiety. INTERVAL HPI: CHIEF COMPLAINT: Weakness, fatigue, dizziness, abdominal pain 28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 According to the patient her work-up was unrevealing and she was discharged home with a prescription for meclizine for vertigo. The patient contacted her mold operator that she had concerns of possible Wabasso's crisis and was encouraged to go back to the emergency department. Her work-up at the outside hospital revealed elevated liver enzymes ALT of 711 AST 466 and total bili was within normal limits the patient also reports that abdominal imaging was unrevealing she was admitted to [facility] for GI consult for her elevated liver enzymes. - 05/05 appreciate GI consult and input, also seen by endocrinology was placed back on normal maintenance steroids - 05/06 liver enzymes increasing - 05/07 worsening liver enzymes increased abdominal pain, tenderness with nausea and vomiting-GI reconsulted stat - 05/08 liver enzymes slightly improved today plan on an MRI possible MRCP and liver biopsy per GI Objective PHYSICAL EXAM: BP 127/87 Pulse 86 Temp (Src) 97.7 (Oral) Resp 15 Ht 5' 5" (1.65m) Wt 192 lb 10.9 oz (87.4kg) SpO2 98% LMP 11/27/2019 BMI 32.06 kg/(m2). O2 Therapy: Room Air Physical Exam Performed Physical Exam Constitutional: Appearance: Normal appearance. She is ill-appearing. HENT: Head: Normocephalic and atraumatic. Nose: Nose normal. Mouth/Throat: Mouth: Mucous membranes are moist. Pharynx: Oropharynx is clear. Eyes: Extraocular Movements: Extraocular movements intact. Pupils: Pupils are equal, round, and reactive to light. Cardiovascular: Rate and Rhythm: Normal rate and regular rhythm. Pulses: Normal pulses. Pulmonary: Effort: Pulmonary effort is normal. Breath sounds: Normal breath sounds. Abdominal: General: Abdomen is flat. Bowel sounds are normal. Palpations: Abdomen is soft. Tenderness: There is abdominal tenderness. Comments: Abdominal pain and tenderness increased over the right upper quadrant with active nausea and vomiting Musculoskeletal: General: Normal range of motion. Skin: General: Skin is warm and dry. Coloration: Skin is jaundiced. Neurological: General: No focal deficit present. Mental Status: She is alert and oriented to person, place, and time. Psychiatric: Mood and Affect: Mood normal. Behavior: Behavior normal. Comments: Increased anxiety DATA: Intake/Output Summary (Last 24 hours) at 05/08/2023 1722 Last data filed at 05/08/2023 0554 Gross per 24 hour Intake 3729 ml Output -- Net 3729 ml Current Facility-Administered Medications Medication Dose Route Frequency Provider Last Rate Last Admin diphenhydrAMINE 12.5 mg injection (BENADRYL) 12.5 mg INTRAVENOUS q 6 H PRN Evelyn Padilla, FIELD RESEARCH ASSISTANT.HEALTH CLUB MANAGER 12.5 mg at 05/08/23 1216 HYDROmorphone (PF) 0.5 mg injection (DILAUDID) 0.5 mg INTRAVENOUS q 3 H PRN Evelyn Padilla FIELD RESEARCH ASSISTANT.HEALTH CLUB MANAGER 0.5 mg at 05/08/23 1419 LORazepam 0.5 mg tab(s) (ATIVAN) 0.5 mg ORAL TID PRN Evelyn Padilla, FIELD RESEARCH ASSISTANT.HEALTH CLUB MANAGER 0.5 mg at 05/07/23 1412 clomiPRAMINE 100 mg cap(s) (ANAFRANIL) 100 mg ORAL AT BEDTIME Evelyn Padilla, FIELD RESEARCH ASSISTANT.HEALTH CLUB MANAGER 100 mg at 05/07/232015 dexAMETHasone 1 mg tab(s) (DECADRON) 1 mg ORAL DAILY WITH BREAKFAST Alicia Teresa MD 1 mg at 05/08/23 0507 fludrocortisone 0.1 mg tab(s) (FLORINEF) 0.1 mg ORAL DAILY Alicia Teresa MD 0.1 mg at 05/08/23 0750 oxyCODONE IR 5 mg tab(s) (ROXICODONE) 5 mg ORAL q 6 H PRN Jamil Johnson APRN.HEALTH CLUB MANAGER 5 mg at 05/08/23 1622 ondansetron (PF) 4 mg injection (ZOFRAN) 4 mg INTRAVENOUS q 8 H PRN Jamil Johnson APRN.HEALTH CLUB MANAGER 4 mg at 05/07/23 1241 NaCl 0.9% iv infusion 150 mL/hr INTRAVENOUS CONTINUOUS Evelyn Padilla APRN.HEALTH CLUB MANAGER 150 mL/hr at 05/08/23 0757 150 mL/hr at 05/08/23 0757 NaCl 0.9% iv flush bag 20 mL INTRAVENOUS PRN Jose Guadalupe Garcia, heparin 5,000 Units injection 5,000 Units SUBCUTANEOUS q 12 H Jose Guadalupe Garcia, 5,000 Units at 05/08/23 0752 busPIRone (BUSPAR) tab(s) 15 mg 15 mg ORAL BID Jose Guadalupe Garcia, 15 mg at 05/08/23 0749 sucralfate 1 g CUP (CARAFATE) 1 g ORAL BID Jose Guadalupe Garcia, 1 g at 05/08/23 0750 gabapentin 200 mg cap(s) (NEURONTIN) 200 mg ORAL AT BEDTIME Edison Garcia (more content not included)...[facility]07-17-2023 NoteHNO ID: [id number] Author: Sachi Tena MD Service: Endocrinology Author Type: Physician Type: Progress Notes Filed: 05/08/2023 9:01 AM Note Text: Endocrinology Progress SERVICE DATE: 05/08/2023 SERVICE TIME: 0805 CONSULTING SERVICE: Endocrinology REQUESTING PROVIDER: Consultation requested by Evelyn Padilla APRN.CNP DIAGNOSIS: Wabasso's Disease, hypothyroidism Subjective CHIEF COMPLAINT: Weakness, fatigue, dizziness, abdominal pain HPI: Patient is a 28-year-old female who initially presented to the [facility] emergency department earlier this week for further evaluation of weakness, fatigue, dizziness, and abdominal pain. According to the patient following an unrevealing work-up she was discharged home and given a prescription for meclizine for what the emergency department provider thought was "vertigo". Patient says she took the meclizine as prescribed but did not achieve relief in her symptoms. Patient has known Wabasso's Disease and follows with endocrinology in the outpatient setting, had contacted Dr. Pride and was told to return to ER. Patient was found to have elevated liver enzymes, and transfer to [facility] was initiated. Given IV steroids last pm Outpatient regimen includes Florinef 0.1mg daily, dexamethasone 1mg daily Januvia 100mg daily, precose 25mg TID with meals, amaryl 1mg for BS >160 Also with history of total thyroidectomy for graves disease PAST MEDICAL HISTORY Diagnosis Date Anxiety Arthritis [...] Social History Tobacco Use Smoking status: Former Packs/day: 0.50 Years: 8.00 Total pack years: 4.00 Types: Cigarettes Quit date: 10/17/2015 Years since quittin.5 Smokeless tobacco: Never Tobacco comments: quit on 10/17/15 Vaping Use Vaping Use: Never used Substance Use Topics Alcohol use: Not Currently Comment: socially Drug use: Not Currently Comment: CBD products Current Facility-Administered Medications Medication Dose Route Frequency Provider Last Rate Last Admin HYDROmorphone (PF) 0.5 mg injection (DILAUDID) 0.5 mg INTRAVENOUS q 3 H PRN Randy, Evelyn, FIELD RESEARCH ASSISTANT.HEALTH CLUB MANAGER 0.5 mg at 05/08/23 0750 LORazepam 0.5 mg tab(s) (ATIVAN) 0.5 mg ORAL TID PRN Liguori, Evelyn, FIELD RESEARCH ASSISTANT.HEALTH CLUB MANAGER 0.5 mg at 05/07/23 1412 clomiPRAMINE 100 mg cap(s) (ANAFRANIL) 100 mg ORAL AT BEDTIME Evelyn Padilla APRN.HEALTH CLUB MANAGER 100 mg at 05/07/232015 dexAMETHasone 1 mg tab(s) (DECADRON) 1 mg ORAL DAILY WITH BREAKFAST Alicia Teresa MD 1 mg at 05/08/23 0507 fludrocortisone 0.1 mg tab(s) (FLORINEF) 0.1 mg ORAL DAILY Alicia Teresa MD 0.1 mg at 05/08/23 0750 oxyCODONE IR 5 mg tab(s) (ROXICODONE) 5 mg ORAL q 6 H PRN Jamil Johnson APRN.HEALTH CLUB MANAGER 5 mg at 05/08/23 0345 ondansetron (PF) 4 mg injection (ZOFRAN) 4 mg INTRAVENOUS q 8 H PRN Jamil Johnson APRN.HEALTH CLUB MANAGER 4 mg at 05/07/23 1241 NaCl 0.9% iv infusion 150 mL/hr INTRAVENOUS CONTINUOUS Evelyn Padilla APRN.HEALTH CLUB MANAGER 150 mL/hr at 05/08/23 0254 150 mL/hr at 05/08/23 0254 NaCl 0.9% iv flush bag 20 mL INTRAVENOUS PRN Jose Guadalupe Garcia DO heparin 5,000 Units injection 5,000 Units SUBCUTANEOUS q 12 H Jose Guadalupe Garcia DO 5,000 Units at 05/07/232017 busPIRone (BUSPAR) tab(s) 15 mg 15 mg ORAL BID Jose Guadalupe Garcia DO 15 mg at 05/08/23 0749 sucralfate 1 g CUP (CARAFATE) 1 g ORAL BID Jose Guadalupe Garcia DO 1 g at 05/08/23 0750 gabapentin 200 mg cap(s) (NEURONTIN) 200 mg ORAL AT BEDTIME Jose Guadalupe Garcia DO 200 mg at 05/07/232016 lacosamide 100 mg tab(s) (VIMPAT) 100 mg ORAL BID Jose Guadalupe Garcia DO 100 mg at 05/08/23 0749 scopolamine 1 mg over 3 days 1 Patch (TRANSDERM-SCOP) 1 Patch TRANSDERMAL q 72 HR Jose Guadalupe Garcia DO 1 Patch at 05/06/23 0834 hydrOXYchloroQUINE 200 mg tab(s) (PLAQUENIL) 200 mg (more content not included)...[facility]07-16-2023 NoteHNO ID: [id number] Author: Evelyn Padilla APRN.HUY Service: ? Author Type: Nurse Practitioner Type: Progress Notes Filed: 05/07/2023 12:46 PM Note Text: INPATIENT PROGRESS NOTE PRIMARY SERVICE: Hospitalist Subjective EMR notes reviewed patient seen and examined. Patient seen and examined feeling very poorly this morning, feels shaky dizzy significant increase in abdominal pain and tenderness. We discussed elevation in liver enzymes she became more anxious felt diaphoretic and sweaty then vomited x1 and had increased even further pain medicine with heaving and abdominal contractions. Her vital signs are stable her blood pressure slightly elevated at 140/90 her oxygen saturation is 100% on room air her pulse is 87 respirations 20. INTERVAL HPI: CHIEF COMPLAINT: Weakness, fatigue, dizziness, abdominal pain 28-year-old female with a history of Wabasso's disease, follows with endocrinology as well as Graves' disease SLE paroxysmal nonepileptic seizures bipolar disorder, depression, and anxiety, PTSD, OCD and obesity initially presented to outside hospital emergency department earlier this week for evaluation of weakness fatigue dizziness and abdominal pain. According to the patient her work-up was unrevealing and she was discharged home with a prescription for meclizine for vertigo. The patient contacted her mold operator that she had concerns of possible Wabasso's crisis and was encouraged to go back to the emergency department. Her work-up at the outside hospital revealed elevated liver enzymes ALT of 711 AST 466 and total bili was within normal limits the patient also reports that abdominal imaging was unrevealing she was admitted to [facility] for GI consult for her elevated liver enzymes. - 05/05 appreciate GI consult and input, also seen by endocrinology was placed back on normal maintenance steroids - 05/06 liver enzymes increasing - 05/07 worsening liver enzymes increased abdominal pain, tenderness with nausea and vomiting-GI reconsulted stat Objective PHYSICAL EXAM: BP 127/85 Pulse 87 Temp (Src) 98 (Oral) Resp 18 Ht 5' 5" (1.65m) Wt 192 lb 10.9 oz (87.4kg) SpO2 97% LMP 11/27/2019 BMI 32.06 kg/(m2). O2 Therapy: Room Air Physical Exam Performed Physical Exam Constitutional: Appearance: Normal appearance. She is ill-appearing. HENT: Head: Normocephalic and atraumatic. Nose: Nose normal. Mouth/Throat: Mouth: Mucous membranes are moist. Pharynx: Oropharynx is clear. Eyes: Extraocular Movements: Extraocular movements intact. Pupils: Pupils are equal, round, and reactive to light. Cardiovascular: Rate and Rhythm: Normal rate and regular rhythm. Pulses: Normal pulses. Pulmonary: Effort: Pulmonary effort is normal. Breath sounds: Normal breath sounds. Abdominal: General: Abdomen is flat. Bowel sounds are normal. Palpations: Abdomen is soft. Tenderness: There is abdominal tenderness. Comments: Abdominal pain and tenderness increased over the right upper quadrant with active nausea and vomiting Musculoskeletal: General: Normal range of motion. Skin: General: Skin is warm and dry. Coloration: Skin is jaundiced. Neurological: General: No focal deficit present. Mental Status: She is alert and oriented to person, place, and time. Psychiatric: Mood and Affect: Mood normal. Behavior: Behavior normal. Comments: Increased anxiety DATA: Intake/Output Summary (Last 24 hours) at 05/07/2023 1242 Last data filed at 05/07/2023 0500 Gross per 24 hour Intake 1250 ml Output -- Net 1250 ml Current Facility-Administered Medications Medication Dose Route Frequency Provider Last Rate Last Admin LORazepam 0.5 mg tab(s) (ATIVAN) 0.5 mg ORAL TID PRN Evelyn Padilla, FIELD RESEARCH ASSISTANT.HEALTH CLUB MANAGER 0.5 mg at 05/07/23 0808 clomiPRAMINE 100 mg cap(s) (ANAFRANIL) 100 mg ORAL AT BEDTIME Evelyn Padilla, FIELD RESEARCH ASSISTANT.HEALTH CLUB MANAGER 100 mg at 05/06/23 2129 dexAMETHasone 1 mg tab(s) (DECADRON) 1 mg ORAL DAILY WITH BREAKFAST Alicia Teresa MD 1 mg at 05/07/23 0503 fludrocortisone 0.1 mg tab(s) (FLORINEF) 0.1 mg ORAL DAILY Alicia Teresa MD 0.1 mg at 05/07/23 0808 oxyCODONE IR 5 mg tab(s) (ROXICODONE) 5 mg ORAL q 6 H PRN Jamil Johnson APRN.HEALTH CLUB MANAGER 5 mg at 05/07/23 1211 ondansetron (PF) 4 mg injection (ZOFRAN) 4 mg INTRAVENOUS q 8 H PRN Jamil Johnson APRN.HEALTH CLUB MANAGER 4 mg at 05/07/23 1241 NaCl 0.9% iv infusion 150 mL/hr INTRAVENOUS CONTINUOUS Evelyn Padilla APRN.HEALTH CLUB MANAGER 150 mL/hr at 05/07/23 1212 150 mL/hr at 05/07/23 1212 NaCl 0.9% iv flush bag 20 mL INTRAVENOUS PRN Jose Guadalupe Garcia DO HYDROmorphone (PF) 0.2 mg injection (DILAUDID) 0.2 mg INTRAVENOUS q 4 H PRN Jose Guadalupe Garcia DO 0.2 mg at 05/07/23 1241 heparin 5,000 Units injection 5,000 Units SUBCUTANEOUS q 12 H Jose Guadalupe Garcia DO 5,000 Units at 05/07/23 0809 busPIRone (BUSPAR) tab(s) 15 mg 15 mg ORAL BID Jose Guadalupe Garcia DO 15 mg at 05/07/23 0809 sucralfate 1 g CUP (CARAFATE) 1 g ORAL BID Jose Guadalupe Garcia D (more content not included)...[facility]07-15-2023 NoteHNO ID: [id number] Author: Evelyn Padilla APRN.HUY Service: ? Author Type: Nurse Practitioner Type: Progress Notes Filed: 05/07/2023 12:42 PM Note Text: INPATIENT PROGRESS NOTE PRIMARY SERVICE: Hospitalist Subjective EMR notes reviewed patient seen and examined. Pt is upset that her numbers are not improving. Remains with some abd tenderness and pain, no fevers chills, nausea or vomiting, taking PO. She is having increased anxiety INTERVAL HPI: CHIEF COMPLAINT: Weakness, fatigue, dizziness, abdominal pain 28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 According to the patient her work-up was unrevealing and she was discharged home with a prescription for meclizine for vertigo. The patient contacted her mold operator that she had concerns of possible Wabasso's crisis and was encouraged to go back to the emergency department. Her work-up at the outside hospital revealed elevated liver enzymes ALT of 711 AST 466 and total bili was within normal limits the patient also reports that abdominal imaging was unrevealing she was admitted to [facility] for GI consult for her elevated liver enzymes. - 05/05 appreciate GI consult and input, also seen by endocrinology was placed back on normal maintenance steroids - 05/06 liver enzymes increasing Objective PHYSICAL EXAM: BP 142/74 Pulse 60 Temp (Src) 97.9 (Temporal) Resp 16 Ht 5' 5" (1.65m) Wt 192 lb 10.9 oz (87.4kg) SpO2 96% LMP 11/27/2019 BMI 32.06 kg/(m2). O2 Therapy: Room Air Physical Exam Performed Physical Exam Constitutional: Appearance: Normal appearance. She is ill-appearing. HENT: Head: Normocephalic and atraumatic. Nose: Nose normal. Mouth/Throat: Mouth: Mucous membranes are moist. Pharynx: Oropharynx is clear. Eyes: Extraocular Movements: Extraocular movements intact. Pupils: Pupils are equal, round, and reactive to light. Cardiovascular: Rate and Rhythm: Normal rate and regular rhythm. Pulses: Normal pulses. Pulmonary: Effort: Pulmonary effort is normal. Breath sounds: Normal breath sounds. Abdominal: General: Abdomen is flat. Bowel sounds are normal. Palpations: Abdomen is soft. Tenderness: There is abdominal tenderness. Musculoskeletal: General: Normal range of motion. Skin: General: Skin is warm and dry. Neurological: General: No focal deficit present. Mental Status: She is alert and oriented to person, place, and time. Psychiatric: Mood and Affect: Mood normal. Behavior: Behavior normal. DATA: Intake/Output Summary (Last 24 hours) at 05/06/2023 0808 Last data filed at 05/06/2023 0258 Gross per 24 hour Intake 2250 ml Output -- Net 2250 ml Current Facility-Administered Medications Medication Dose Route Frequency Provider Last Rate Last Admin dexAMETHasone 1 mg tab(s) (DECADRON) 1 mg ORAL DAILY WITH BREAKFAST Alicia Teresa MD fludrocortisone 0.1 mg tab(s) (FLORINEF) 0.1 mg ORAL DAILY Alicia Teresa MD oxyCODONE IR 5 mg tab(s) (ROXICODONE) 5 mg ORAL q 6 H PRN Jamil Johnson, FIELD RESEARCH ASSISTANT.HEALTH CLUB MANAGER 5 mg at 05/06/23 013 ondansetron (PF) 4 mg injection (ZOFRAN) 4 mg INTRAVENOUS q 8 H PRN Jamil Johnson, FIELD RESEARCH ASSISTANT.HEALTH CLUB MANAGER NaCl 0.9% iv infusion 100 mL/hr INTRAVENOUS CONTINUOUS Jose Guadalupe Garcia DO 100 mL/hr at 05/06/23 0258 100 mL/hr at 05/06/23 025 NaCl 0.9% iv flush bag 20 mL INTRAVENOUS PRN Jose Guadalupe Garcia, DO HYDROmorphone (PF) 0.2 mg injection (DILAUDID) 0.2 mg INTRAVENOUS q 4 H PRN Jose Guadalupe Garcia, 0.2 mg at 05/06/23 0603 heparin 5,000 Units injection 5,000 Units SUBCUTANEOUS q 12 H Jose Guadalupe Garcia DO 5,000 Units at 05/05/232110 LORazepam 0.5 mg tab(s) (ATIVAN) 0.5 mg ORAL DAILY PRN Jose Guadalupe Garcia, DO 0.5 mg at 05/06/23130 busPIRone (BUSPAR) tab(s) 15 mg 15 mg ORAL BID Jose Guadalupe Garcia DO 15 mg at 05/05/232110 sucralfate 1 g CUP (CARAFATE) 1 g ORAL BID Jose Guadalupe Garcia, DO 1 g at 05/05/232204 gabapentin 200 mg cap(s) (NEURONTIN) 200 mg ORAL AT BEDTIME Jose Guadalupe Garcia, DO 200 mg at 05/05/232110 lacosamide 100 mg tab(s) (VIMPAT) 100 mg ORAL BID Jose Guadalupe Garcia, DO 100 mg at 05/05/232110 scopolamine 1 mg over 3 days 1 Patch (TRANSDERM-SCOP) 1 Patch TRANSDERMAL q 72 HR Jose Guadalupe Garcia DO 1 Patch at 05/03/23 0953 hydrOXYchloroQUINE 200 mg tab(s) (PLAQUENIL) 200 mg ORAL BID Jose Guadalupe Garcia, 200 mg at 05/05/232110 albuterol 2.5 mg /3 mL (0.083 %) 2.5 mg (PROVENTIL) 2.5 mg INHALATION q 4 H PRN Jose Guadalupe Garcia DO pantoprazole DR 40 mg tab(s) (PROTONIX) 40 mg ORAL DAILY (6 AM) Jose Guadalupe Garcia DO 40 mg at 05/06/23 0604 sertraline 50 mg tab(s) (ZOLOFT) 50 mg ORAL DAILY Jose Guadalupe Garcia DO 50 mg at 05/05/23 0819 levothyroxi (more content not included)...[facility]07-14-2023 NoteHNO ID: [id number] Author: Evelyn Padilla APRN.HEALTH CLUB MANAGER Service: ? Author Type: Nurse Practitioner Type: Progress Notes Filed: 05/05/2023 5:28 PM Note Text: INPATIENT PROGRESS NOTE PRIMARY SERVICE: Hospitalist Subjective EMR notes reviewed patient seen and examined still complaining of some right upper quadrant tenderness no chest pain fevers chills nausea vomiting or diarrhea. Egar to go home as small children in room visiting. Discussed that enzymes are climbing INTERVAL HPI: CHIEF COMPLAINT: Weakness, fatigue, dizziness, abdominal pain 28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 According to the patient her work-up was unrevealing and she was discharged home with a prescription for meclizine for vertigo. The patient contacted her mold operator that she had concerns of possible Wabasso's crisis and was encouraged to go back to the emergency department. Her work-up at the outside hospital revealed elevated liver enzymes ALT of 711 AST 466 and total bili was within normal limits the patient also reports that abdominal imaging was unrevealing she was admitted to [facility] for GI consult for her elevated liver enzymes. - 05/05 appreciate GI consult and input, also seen by endocrinology was placed back on normal maintenance steroids Objective PHYSICAL EXAM: BP 123/75 Pulse 65 Temp (Src) 98.1 (Oral) Resp 16 SpO2 97% LMP 11/27/2019 O2 Therapy: Room Air Physical Exam Performed Physical Exam Constitutional: Appearance: Normal appearance. She is ill-appearing. HENT: Head: Normocephalic and atraumatic. Nose: Nose normal. Mouth/Throat: Mouth: Mucous membranes are moist. Pharynx: Oropharynx is clear. Eyes: Extraocular Movements: Extraocular movements intact. Pupils: Pupils are equal, round, and reactive to light. Cardiovascular: Rate and Rhythm: Normal rate and regular rhythm. Pulses: Normal pulses. Pulmonary: Effort: Pulmonary effort is normal. Breath sounds: Normal breath sounds. Abdominal: General: Abdomen is flat. Bowel sounds are normal. Palpations: Abdomen is soft. Tenderness: There is abdominal tenderness. Musculoskeletal: General: Normal range of motion. Skin: General: Skin is warm and dry. Neurological: General: No focal deficit present. Mental Status: She is alert and oriented to person, place, and time. Psychiatric: Mood and Affect: Mood normal. Behavior: Behavior normal. DATA: Intake/Output Summary (Last 24 hours) at 05/05/2023 0837 Last data filed at 05/05/2023 0500 Gross per 24 hour Intake 450 ml Output -- Net 450 ml Current Facility-Administered Medications Medication Dose Route Frequency Provider Last Rate Last Admin oxyCODONE IR 5 mg tab(s) (ROXICODONE) 5 mg ORAL q 6 H PRN Jamil Johnson, CHRISTINE.HEALTH CLUB MANAGER 5 mg at 05/05/23 0550 ondansetron (PF) 4 mg injection (ZOFRAN) 4 mg INTRAVENOUS q 8 H PRN Jamil Johnson, FIELD RESEARCH ASSISTANT.HEALTH CLUB MANAGER NaCl 0.9% iv infusion 100 mL/hr INTRAVENOUS CONTINUOUS Jose Guadalupe Garcia DO 100 mL/hr at 05/04/23 0820 100 mL/hr at 05/04/23 0820 NaCl 0.9% iv flush bag 20 mL INTRAVENOUS PRN Jazmin Garciahan, DO hydrocortisone sodium succinate (PF) 50 mg injection (Solu-CORTEF) 50 mg INTRAVENOUS q 6 H Jose Guadalupe Garcia, DO 50 mg at 05/05/23 0550 HYDROmorphone (PF) 0.2 mg injection (DILAUDID) 0.2 mg INTRAVENOUS q 4 H PRN Jose Guadalupe Garcia, DO 0.2 mg at 05/05/23 0818 heparin 5,000 Units injection 5,000 Units SUBCUTANEOUS q 12 H KanJose Guadalupe marcos DO 5,000 Units at 05/05/23 0819 LORazepam 0.5 mg tab(s) (ATIVAN) 0.5 mg ORAL DAILY PRN Jose Guadalupe Garcia DO busPIRone (BUSPAR) tab(s) 15 mg 15 mg ORAL BID Jose Guadalupe Garcia DO 15 mg at 05/05/23 0818 sucralfate 1 g CUP (CARAFATE) 1 g ORAL BID Jose Guadalupe Garcia DO 1 g at 05/05/23 0818 gabapentin 200 mg cap(s) (NEURONTIN) 200 mg ORAL AT BEDTIME Jose Guadalupe Garcia DO 200 mg at 05/04/23 2104 lacosamide 100 mg tab(s) (VIMPAT) 100 mg ORAL BID Jose Guadalupe Garcia DO 100 mg at 05/05/23 08 scopolamine 1 mg over 3 days 1 Patch (TRANSDERM-SCOP) 1 Patch TRANSDERMAL q 72 HR Jose Guadalupe Garcia DO 1 Patch at 05/03/23 0953 hydrOXYchloroQUINE 200 mg tab(s) (PLAQUENIL) 200 mg ORAL BID Jose Guadalupe Garcia DO 200 mg at 05/05/23 0819 albuterol 2.5 mg /3 mL (0.083 %) 2.5 mg (PROVENTIL) 2.5 mg INHALATION q 4 H PRN Jose Guadalupe Garcia DO pantoprazole DR 40 mg tab(s) (PROTONIX) 40 mg ORAL DAILY (6 AM) Jose Guadalupe Garcia DO 40 mg at 05/05/23 0550 sertraline 50 mg tab(s) (ZOLOFT) 50 mg ORAL DAILY Jose Guadalupe Garcia DO 50 mg at 05/05/23 0819 tiZANidine 4 mg tab(s) (ZANAFLEX) 4 mg ORAL TID PRN Jose Guadalupe Garcia DO 4 mg at 05/05/23 0818 levothyroxine 125 mcg tab(s) (SYNTHROID) 125 mcg ORAL DAILY (more content not included)...[facility]07-13-2023 NoteHNO ID: [id number] Author: Evelyn Padilla APRN.HEALTH CLUB MANAGER Service: ? Author Type: Nurse Practitioner Type: Progress Notes Filed: 05/04/2023 6:47 PM Note Text: INPATIENT PROGRESS NOTE SERVICE DATE: 05/04/2023 SERVICE TIME: 10:19 AM PRIMARY SERVICE: Hospitalist Subjective EMR notes reviewed patient seen and examined still complaining of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 capsule by mouth daily at bedtime. cyclobenzaprine 10 mg tablet Commonly known as: FLEXERIL Take 1 tablet by mouth three times daily as needed for muscle spasm. eletriptan 40 mg tablet Commonly known as: RELPAX At migraine onset. may repeat in 2 hours if necessary estradiol 0.0375 mg/24 hr Commonly known as: CLIMARA Apply 1 Patch as directed one time a week. fludrocortisone 0.1 mg tablet Commonly known as: FLORINEF Take 1 tablet by mouth once daily. glimepiride 1 mg tablet Commonly known as: AmaryL Take 1 tablet by mouth as directed. take if BG >160 GVOKE HYPOPEN 2-PACK 1 mg/0.2 mL Autoinjector Generic drug: glucagon Inject 1 mg subcutaneously as needed. hydrOXYchloroQUINE 200 mg tablet Commonly known as: PLAQUENIL Take 1 tablet by mouth twice daily. Lancets lancets Use as instructed levothyroxine 125 mcg tablet Commonly known as: SYNTHROID Take 1 tablet by mouth once daily. LORazepam 0.5 mg Commonly known as: ATIVAN Take 1 tablet by mouth once daily as needed for up to 30 days. NUTRITIONAL DRINK Liqd Generic drug: Food Supplement, Lactose-Free Take 237 mL by mouth three times daily with meals. oxybutynin 5 mg tablet Commonly known as: DITROPAN Take 1 tablet by mouth three times daily as needed. pantoprazole DR 40 mg tablet Commonly known as: PROTONIX Take 1 tablet by mouth DAILY (6 AM). promethazine 25 mg tablet Commonly known as (more content not included)...[facility] 02-07-2023 NoteHNO ID: [id number] Author: Floridalma Valente [facility] Service: Pharmacy Author Type: Pharmacist Type: Plan of Care Filed: 02/07/2023 11:10 AM Note Text: PHARMACY MEDICATION REVIEW Patient Name: Sonia Szymanski : 1995 The following medications were updated within the TWIST PACKER medication list: Medications ADDED to TWIST PACKER medication list Carafate suspension Medications CHANGED on TWIST PACKER medication list Oxybutynin changed to as needed Medications REMOVED from TWIST PACKER medication list Golytely - course complete Solu-cortef duplicate Additional comments: The patient was very familiar with all of her medications. Her fill history is consistent. The below information represents the best possible medication history: Yes Medication history completed by: Pharmacist: Floridalma Valente [facility] Source of history: Patient: Reliability of source: Appears reliable, clearly identified: Medication name, Medication dose, Medication route, and Medication frequency, Pharmacy records: [facility], [facility] records, and [facility] Medication nonadherence identified: No barriers noted Reconciliation completed: Yes Completed by: DMTIRIY All TWIST PACKER medications addressed by DMITRIY and Discussed with LIP, plans to add Estradiol patch and sucralfate based on updated medication history Patient interested in Bedside Delivery Services or using OP Pharmacy at discharge? Yes. Discharge Pharmacy Updated Preferred outpatient pharmacy: e- [facility] [address] [place] [address] [address] [facility] [phone] e- [facility] [place], [place] [address] - [address] [phone] [facility] e- [facility] [address] [place] [address] - [address] [facility], [address] - [phone] [facility] Allergies: Prednisone Anaphylaxis Comment:Had at the same time as Z-trinidad - unsure which caused the anaphylaxis Nvr-Zgjblhqlpotqk-B* Anaphylaxis Excedrin [Acetamino* Swelling Comment:Mouth, can take tylenol Latex Rash, Hives Comment:at site Neosporin [Neomycin* Hives Voltaren [Diclofena* Other: See Comments Comment:Nausea Zithromax [Azithrom* Anaphylaxis Comment:Hospitalized on 07/03/14 for this Prior to Admission Medications Prescriptions Last Dose Informant Patient Reported? Taking? AJOVY AUTOINJECTOR 225 mg/1.5 mL auto-injector No No Sig: INJECT 1.5 ML SUBCUTANEOUSLY ONCE EVERY MONTH Patient not taking: Reported on 02/01/2023 Blood-Glucose Meter No Yes Sig: Use to check blood sugar 3-4 times daily. FLUoxetine (PROZAC) 20 mg capsule No No Sig: Take 1 capsule by mouth once daily. Food Supplement, Lactose-Free (NUTRITIONAL DRINK) liqd No Yes Sig: Take 237 mL by mouth three times daily with meals. LORazepam (ATIVAN) 0.5 mg No Yes Sig: Take 1 tablet by mouth once daily as needed for up to 30 days. Lancets lancets No Yes Sig: Use as instructed SITagliptin phosphate (JANUVIA) 100 mg tablet No Yes Sig: Take 1 tablet by mouth once daily. Syringe with Needle, Disp, (BD TUBERCULIN SYRINGE) 1 mL 27 x 1/2" No No Si Each three times daily. acarbose (PRECOSE) 25 mg tablet No Yes Sig: Take 1 tablet by mouth three times daily. acetaminophen (TYLENOL) 500 mg tablet No Yes Si tablets by ORAL/FEEDING TUBE route every 8 hours as needed for pain. albuterol (PROVENTIL) 2.5 mg /3 mL (0.083 %) nebulizer solution No Yes Sig: Use 3 mL via nebulizer every 4 hours as needed for wheezing/shortness of breath. Use over 5-15minutes. albuterol HFA (PROAIR HFA) 90 mcg/actuation inhaler No Yes Sig: Inhale 2 Puffs as instructed every 4 hours as needed. Patient taking differently: Inhale 2 Puffs as instructed every 4 hours as needed for wheezing/shortness of breath. alcohol swabs No Yes Six/d blood sugar diagnostic (BLOOD GLUCOSE TEST) test strip No Yes Sig: Use as instructed busPIRone (BUSPAR) 15 mg tablet No Yes Sig: Take 1 tablet by mouth twice daily. clomiPRAMINE (ANAFRANIL) 75 mg capsule No Yes Sig: Take 1 capsule by mouth daily at bedtime. cyclobenzaprine (FLEXERIL) 10 mg tablet No Yes Sig: Take 1 tablet by mouth three times daily as needed. Patient taking differently: Take 10 mg by mouth three times daily as needed for muscle spasm. divalproex DR (DEPAKOTE) 250 mg EC tablet No Yes Sig: Take 1 tablet by mouth every morning AND 2 tablets every evening. eletriptan (RELPAX) 40 mg tablet No Yes Sig: At migraine onset. may repeat in 2 hours if necessary estradiol (CLIMARA) 0.0375 mg/24 hr No Yes Sig: Apply 1 Patch as directed one time a week. fludrocortisone (FLORINEF) 0.1 mg tablet No Yes Sig: Take 1 tablet by mouth once daily. gabapentin (NEURONTIN) 100 mg capsule No Yes Sig: One po q hs for one week, and then increase to BID. Patient taking differently: Take 200 mg by mouth daily at bedtime. One po q hs for one week, and then increase to BID. glimepiride (AMARYL) 1 mg tablet No Yes Sig: Take 1 tablet by mouth on (more content not included)...[facility]04-17-2023 NoteHNO ID: [id number] Author: Yanna Garcia MD Service: Hospital Medicine Author Type: Physician Type: Progress Notes Filed: 02/06/2023 4:04 PM Note Text: DEPARTMENT OF HOSPITAL MEDICINE PROGRESS NOTE SERVICE DATE: 02/06/2023 SERVICE TIME: 3:59 PM Hospital Medicine/Primary Attending: Yanna Arevalo MD NIGHT AND WEEKEND COVERAGE: After 7pm please page [phone] SUBJECTIVE: complains of tenderness oin her neck and she feels it is swollen Normal exam Continues to have chronic right sided abdominal pain Denies CP/SOB. Denies nausea/vomiting/diarrhea. OBJECTIVE: PHYSICAL EXAM: BP 109/61 Pulse 99 Temp (Src) 97.7 (Oral) Resp 16 Ht 5' 5" (1.65m) Wt 189 lb 6 oz (85.9kg) SpO2 96% LMP 11/27/2019 BMI 31.51 kg/(m2). O2 Therapy: Room Air General: NAD, appears comfortable Resp: Clear to auscultation B/L, no wheeze/rhonchi, unlabored CV: RRR, Normal S1S2, No murmur/rub/gallop GI: soft, NT/ND, + BS Ext: no cyanosis/clubbing/edema Neuro: AANDO x 3, speech fluent MEDICATIONS: Current Facility-Administered Medications Medication Dose Route Frequency busPIRone 15 mg tab(s) (BUSPAR) 15 mg ORAL BID gabapentin 100 mg cap(s) (NEURONTIN) 100 mg ORAL q 12 H acarbose 25 mg tab(s) (PRECOSE) 25 mg ORAL TID SITagliptin phosphate 100 mg tab(s) (JANUVIA) 100 mg ORAL DAILY hydrOXYchloroQUINE 200 mg tab(s) (PLAQUENIL) 200 mg ORAL BID albuterol 2.5 mg /3 mL (0.083 %) 2.5 mg (PROVENTIL) 2.5 mg INHALATION q 4 H PRN fludrocortisone 0.1 mg tab(s) (FLORINEF) 0.1 mg ORAL DAILY pantoprazole DR 40 mg tab(s) (PROTONIX) 40 mg ORAL DAILY (6 AM) cyclobenzaprine 10 mg tab(s) (FLEXERIL) 10 mg ORAL TID PRN levothyroxine 125 mcg tab(s) (SYNTHROID) 125 mcg ORAL DAILY (6 AM) clomiPRAMINE 75 mg cap(s) (ANAFRANIL) 75 mg ORAL AT BEDTIME dextrose 15 gram/32 mL 15 g (TRUEPLUS) 15 g ORAL PRN Or glucagon 1 mg injection 1 mg INTRAMUSCULAR PRN Or dextrose 10% iv bolus 12.5 g INTRAVENOUS PRN insulin lispro injection (rapid acting) (ADMElog) SUBCUTANEOUS w MEALS ondansetron (PF) 4 mg injection (ZOFRAN) 4 mg INTRAVENOUS q 6 H PRN oxyCODONE IR 5 mg tab(s) (ROXICODONE) 5 mg ORAL q 6 H PRN hydrocortisone sodium succinate (PF) 15 mg injection (Solu-CORTEF) 15 mg INTRAVENOUS DAILY (8 AM) hydrocortisone sodium succinate (PF) 7.5 mg injection (Solu-CORTEF) 7.5 mg INTRAVENOUS DAILY (2 PM) hydrocortisone sodium succinate (PF) 5 mg injection (Solu-CORTEF) 5 mg INTRAVENOUS DAILY (7 PM) LORazepam 0.5 mg tab(s) (ATIVAN) 0.5 mg ORAL TID PRN morphine 1 mg injection 1 mg INTRAVENOUS q 4 H PRN lacosamide 50 mg tab(s) (VIMPAT) 50 mg ORAL BID [START ON 02/08/2023] lacosamide 100 mg tab(s) (VIMPAT) 100 mg ORAL BID divalproex DR 250 mg tab(s) (DEPAKOTE) 250 mg ORAL BID [START ON 02/08/2023] divalproex DR 250 mg tab(s) (DEPAKOTE) 250 mg ORAL AT BEDTIME docusate sodium 100 mg cap(s) (COLACE) 100 mg ORAL BID PRN enoxaparin 40 mg injection (LOVENOX) 40 mg SUBCUTANEOUS q 24 HR calcium carbonate 500 mg chewable tab(s) (TUMS) 500 mg ORAL TID PRN DATA: Diagnostic tests reviewed for today's visit: CBC, Coags, BMP, Mg, Phos Recent Labs 02/06/23 0351 02/05/23 1126 WBC 7.04 7.66 HB 10.7* 10.1* HCT 34.9* 32.7* PLT 322 287 NA 138 139 K 4.2 3.5* CHLOR 102 103 CO2 25 27 BUN 5* 5* CREAT 0.56* 0.57* GLUC 126* 82 CA 8.5 7.2* CSF AND Dilantin Liver Function, Amylase, AND Lipase Recent Labs 02/06/23 0351 LACT 2.8* Cardiac Enzymes ABGs Problem List DIOGO (generalized anxiety disorder) POA: Yes Mixed obsessional thoughts and acts POA: Yes Chronic post-traumatic stress disorder (PTSD) POA: Yes Major depressive disorder, recurrent episode, moderate (HCC) POA: Yes HOSPITAL COURSE: Sonia Szymanski is a 27 year old female with -Seizure on Depakote at home , Neurology consult EEG normal , Seizure precautions . Plan to wean patient off VPA , she was started on vimpat yesterday , neurology follows -Right upper quadrant pain No acute findings on CT abdomen RUQ US negative Pain control Patient reports chronic right sided abdominal pain , she was referred to pain management as outpatient and she has appointment in February. 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 -Hypothyroid Continue synthroid VTE Prophylaxis: as appropriate Disposition: Home Plan of care discussed with: Provider, RN, Patient SIGNATURE: Yanna Garcia MD PATIENT NAME: Sonia Szymanski DATE: February 06, 2023 TIME: 3:59 PM PAGER/CONTACT #: chey deng [facility] 02-06-2023 NoteHNO ID: [id number] Author: Mahogany Negron RN Service: Care Management Author Type: Registered Nurse Type: Care Mgt Initial Assessment Filed: 02/06/2023 12:08 PM Note Text: CARE MANAGEMENT: ASSESSMENT AND DISCHARGE PLAN SERVICE DATE: February 06, 2023 SERVICE TIME: 12:06 PM PCP: Isaias Bradley MD Primary Contact: Extended Emergency Contact Information Primary Emergency Contact: Rex Szymanski Address: [address] [place] [id number] [facility] Mobile Relation: Spouse Secondary Emergency Contact: Ingrid Alfonso Mobile Relation: Mother Admission Status: Inpatient Insurance Provider: [employer] MEDICAID Discharge Planning requested by: Per Department Practice Potential Transition Plans Home Advance Directives Current Advance Directive: Health Care Power of Machine Rebuilder In Chart: Yes Up To Date and Valid: Yes Current Living Arrangements and Support Lives with: Spouse/significant other Type of Residence: Private Residence (House) Support: Family members How do you manage to accomplish the following: Independent: Ambulation;Bathe/Shower;Dress;Meals/Meal Prep;Going to the bathroom;Medication Management;Transportation to appointments/community Current Services/Equipment Current Post-Acute Service(s): None Discharge Planning Patient Goal(s): General wellness [place] of Choice Explained: [place] of Choice Given: No Reason Not Given: No placements necessary Are you interested in bedside delivery of your medications? Yes Discharge Planning Participant(s): Patient Patient/Family Comments: Caregiver Assessment: Caregiver is ready, willing and able to meet the patient's needs as recommended by the inter-professional team: No Caregiver needed Transport at Discharge: Transportation Arrangements: Car Needs Prior to Discharge: Needs Prior to Discharge: None Post-Acute Discharge Plan: CM introduced self and role. Pt states she lives at home with her , [place]. Pt states she is independent at home. Pt states she has a cane and walker at home, though she does not regularly use either. Pt states she also has a shower chair. Pt denies the use of any home oxygen. No skilled needs are anticipated. Pt states either her , [place], or [id number] will transport her home at time of discharge. SIGNATURE: Mahogany Negron RN, BSN PATIENT NAME: Sonia Szymanski DATE: February 06, 2023 TIME: 12:06 PM [phone] NoteHNO ID: [id number] Author: Lori Yanez APRN.[facility] Service: Neurology General Author Type: Nurse Practitioner Type: Plan of Care Filed: 02/06/2023 11:45 AM Note Text: C/w up titration of vimpat and weaning of VPA. Will follow up 02/07 for assess tolerance. Please call with question. Lori Yanez APRN.[facility]04-16-[address] Anna [facility] February 05, 2023 1:10am Note Date/Time February 04, 2023 5:1 2pm [facility] Medical Records Department [address] [place] [address] Emergency Department Summary 02/04/23 MR#: [id number] Acct: [id number] Name: SONIA SZYMANSKI Rep #:[id number] : 1995 27 From: Elfego Platt PCP: Dr. Isaias Bradley MD Status:REG E R Location: ED HPI History of Present Illness Chief Complaint: Seizure Narrative Narrative: 27-year-old female here with concern for seizure, vomiting. History is providedby patient and EMS. Patient states she was lying in bed when she had aura of having a seizure. Denies any recent fever, abdominal pain. Notes after her seizure she had vomiting. Thinks her [place]'s is getting worse. States she does not think she is . Denies any medication noncompliance. Last doseof Depakote was yesterday. PFSH PFS Medical History Abnormal uterine bleeding (AUB) Addisonian crisis Addisons disease Adenomyosis Anxiety and depression Asthma Cardiology follow-up encounter Chest pain Chronic female pelvic pain Diabetes Difficulty swallowing Dysphagia Easy bruising Endometriosis determined by laparoscopy Former smoker Gastric reflux Gastroparesis Graves disease History of diverticulitis History of echocardiogram History of IBS History of left heart catheterization History of steroid therapy History of stress test History of ulceration Low iron Migraine Mild intermittent asthma Restless legs Seizures Shortness of breath on exertion Wears glasses Home Medications albuterol sulfate 90 mcg/actuation aerosol inhaler 1 - 2 puff inhalation Q4H PRNPRN Sob &/Or Wheezing 08/04/20 [History Last Taken Unknown] nitroglycerin 0.3 mg sublingual tablet 0.3 mg sublingual Q5M PRN cp 12/11/20 [History Last Taken Unknown] fremanezumab-vfrm 225 mg/1.5 mL subcutaneous auto-injector (Ajovy) 225 mg subcutQMONTH MIGRAINES 09/20/21 [History Last Taken 07/12/22] lorazepam 1 mg tablet (Ativan) 1 mg PO TID PRN anxiety #12 tabs 12/02/21 [Rx Last Taken 08/08/22] esomeprazole magnesium 40 mg capsule,delayed release (Nexium) 40 mg PO DAILY GERD 12/19/21 [History Last Taken 08/08/22] acarbose 25 mg tablet 25 mg PO TID sugar 08/09/22 [History Last Taken 08/08/22] albuterol sulfate 90 mcg/actuation aerosol inhaler (Ventolin HFA) 2 inh inhalation Q4H PRN sob 08/09/22 [History Last Taken Unknown] buspirone 5 mg tablet 5 mg PO TID ANXIETY 08/09/22 [History Last Taken 08/08/22] divalproex 250 mg tablet,delayed release 250 mg PO UD SEIZURE 08/09/22 [History Last Taken 08/08/22] eletriptan 40 mg tablet 40 mg PO DAILY migraines 08/09/22 [History Last Taken 2 Days Ago ~08/07/22] estradiol 0.0375 mg/24 hr weekly transdermal patch 0.0375 mg transdermal MO HORMONES 08/09/22 [History Last Taken 08/01/22] fludrocortisone 0.1 mg tablet 0.1 mg PO DAILY ADDISONS 08/09/22 [History Last Taken 08/08/22] fluoxetine 40 mg capsule 40 mg PO DAILY ANXIETY 08/09/22 [History Last Taken 08/08/22] glucagon 1 mg/0.2 mL subcutaneous auto-injector (Gvoke HypoPen 2-Pack) 1 mg subcut DAILY PRN PRN Hypoglycemia 08/09/22 [History Last Taken Unknown] hydrocortisone sod succinate 100 mg solution for injection (Solu-Cortef) 5 - 15 mg IM TID ADDISONS 08/09/22 [History Last Taken 08/09/22] hydroxychloroquine 200 mg tablet 200 mg PO BID ARTHRITIS 08/09/22 [History Last Taken 08/08/22] levothyroxine 137 mcg tablet 137 mcg PO DAILY thyroid 08/09/22 [History Last Taken 08/08/22] tizanidine 4 mg tablet 4 mg PO Q8H PRN Spasms 08/09/22 [History Last Taken 2 Days Ago ~08/07/22] metformin 500 mg tablet 500 mg PO DAILY 09/05/22 [History Last Taken Unknown] hydrocodone-acetaminophen 5-325mg 5mg-325mg 1 tab PO Q4H PRN PRN Pain 2 days #10TABLETS 11/03/22 [Rx Last Taken Unknown] ondansetron 4 mg disintegrating tablet 8 mg PO Q8H PRN PRN Nausea #20 tabs 11/03/22 [Rx Last Taken Unknown] Allergy/AdvReac Type Severity Reaction Status Date / Time acetaminophen Allergy Anaphylaxis Verified 02/04/23 17:05 [From Excedrin Migraine] aspirin Allergy Anaphylaxis Verified 02/04/23 17:05 [From Excedrin Migraine] azithromycin Allergy Anaphylaxis Verified 02/04/23 17:05 [From Zithromax Z-Trinidad] bacitracin Allergy Swelling Verified 02/04/23 17:05 [From Neosporin ([id number])] bacitracin zinc Allergy Swelling Verified 02/04/23 17:05 [From Neosporin ([id number])] caffeine Allergy Anaphylaxis Verified 02/04/23 17:05 [From Excedrin Migraine] latex Allergy Rash Verified 02/04/23 17:05 neomycin sulfate Allergy Swelling Verified 02/04/23 17:05 [From Neosporin ([id number])] polymyxin B Allergy Swelling Verified 02/04/23 17:05 [From Neosporin ([id number])] Family History Uncle Diabetes Cancer lung Father Diabetes Grandfather CVA (cerebral vascular accident) Cancer lung, unsure additional type Uncle Cancer brain Grandmother Cancer lung and unsure additional type Surgical History History of appendectomy History of section History of laparoscopic-assisted vaginal hysterectomy History of laparoscopy History of left salpingo-oophorectomy History of thyroidectomy History of tubal ligation History of wisdom tooth extraction Hx laparoscopic cholecystectomy Social History Smoking Status: Former smoker ROS ROS ED ROS Narrative Constitutional: Denies fever HEENT: Denies sore throat Neck: Denies neck pain Cardiovascular: Denies chest pain, syncope Respiratory: Denies shortness of breath GI: Endorses nausea, vomiting and abdominal pain : Denies changes in urinary habits Musculoskeletal: Denies muscle or joint pain Neurologic: Endorses seizures Skin denies rash EXAM Physical Exam Narrative Exam Narrative: Nursing triage notes reviewed, Vital signs reviewed Constitutional: please see mdm HENT: MMM Eyes: Pupils equal round and reactive to light, Extraocular muscles intact Neck: No stridor, no JVD, full neck ROM Lungs: Clear to auscultation, No wheezing or rales. No increased work of breathing, no conversational dyspnea, no accessory muscle use, no nasal flaring. No respiratory distress noted Heart: Regular rate and rhythm, No murmurs, No rubs and No gallops, 2+ distal pulses (radial, femoral, posterior tibial) in all extremities Abdomen: Soft, there is no tenderness, rigidity, rebound or guarding, no obviousperitoneal signs, no palpable pulsatile abdominal masses, no auscultated abdominal bruit : No CVAT Extremities: No edema Neuro: Alert and oriented x3, neuro exam at baseline, cranial nerves II through XII are intact. No pain with extraocular muscle movement. There is negative test of skew. Normal speech. 5 of 5 strength in upper and lower extremities inflexion extension. Intact sensation to light touch in upper and lower extremitydermatomes. No truncal or extremity ataxia. No dysdiadochokinesia. Normal gait. 2+ reflexes. No meningeal signs. Negative Babinski. NIH of 0 Skin: No rash or lesions noted Const Vital Signs: 02/04/23 16:48 02/04/23 19:01 02/04/23 22:35 Temperature 97.4 F L Temperature Source Temporal Pulse Rate 103 H 70 97 Respiratory Rate 16 15 Blood Pressure 105/75 111/79 Blood Pressure Mean 85 89 Pulse Ox 97 Oxygen Delivery Method Room Air Room Air MDM MDM MDM Narrative Medical decision making narrative: Chief Complaint: Seizure External records reviewed: Last CT scan of the head was in October 2022 showed no acute process I considered the following differential diagnosis: Hypoglycemia, hyponatremia, infection, eclampsia, syncope, myocardial ischemia, arrhythmia, anemia, electrolyte abnormality, dehydration, medication noncompliance. The patient had no focal neurologic deficits to suggest acute intracranial abnormality. There is no fever, meningeal signs to suggest meningitis or encephalitis. I obtained a broad lab work-up to further elucidate etiology of the patient's complaints. Labs without evidence of significant hyponatremia, hypoglycemia. Patient's valproic acid level is subtherapeutic suggestive of mednoncompliance which may have precipitated her seizure. Will dose valproic acid here. test negative making eclampsia less likely. Patient's lactate was persistently elevated despite IV fluids. I attributed this to likely recentseizure. I gave the patient fluids and repeated a lactate level. Lactate up trended for the second time. Given her abdominal pain I was concerned about intra-abdominal pathology or infection. CT scan was negative. No obvious source of infection could be ascertained on exam with labs. Delay in antibiotics secondary to concern for initial seizure. Third lactate continued to uptrend. At this point I was more concerned about sepsis which can also lower the patient's seizure threshold so I faiza blood cultures, give broad-spectrum antibiotics and continue to resuscitate the patient with fluids. At this point do not think the patient's port for home-going. This discussed with the patient she agreed. She should be admitted pending blood cultures, ongoing care and resuscitation. Factors affecting care: History of seizures on Depakote Social determinants of health: Former smoker History obtained from others: Shared decision making: I will have a discussion with the patient and or visitors regarding risk/benefits of further testing or admission. They will be made aware of of the risk/benefits inherent in this decision they will be given the opportunity to voice understanding. Consults: none Lab Data Attestation: I reviewed the patient's lab results. Lab results narrative: CBC without leukocytosis, mild anemia no thrombocytopenia. BMP without evidence of significant electrolyte abnormalities, no anion gap, no acute kidney injury. LFTs show no evidence of hepatobiliary pathology. TSH within normal limits Alcohol level negative Valproic acid subtherapeutic indicative of med noncompliance Lactic acid elevated indicative of poor endorgan perfusion makes seizure more likely test is negative UA without evidence of UTI Labs: Laboratory Results - last 24 hr 02/04/23 02/04/2323 17:33 17:33 17:33 WBC 7.8 RBC 4.51 Hgb 11.6 L Hct 37.5 MCV 83.1 MCH 25.7 L MCHC 30.9 L RDW Std Deviation 45.3 H RDW Coeff of Renetta 14.8 H Plt Count 368 MPV 9.7 Sodium 138 Potassium 3.7 Chloride 103 Carbon Dioxide 28.0 Anion Gap 7 BUN 9 Creatinine 0.86 Estim Creat Clear Calc 86.85 Est GFR (MDRD) Af Amer 99 Est GFR (MDRD) Non-Af 82 BUN/Creatinine Ratio 10.4 Glucose 121 H Lactic Acid Calcium 9.0 Total Bilirubin 0.30 AST 13 L ALT 22 Alkaline Phosphatase 62 Total Protein 7.6 Albumin 3.3 Globulin 4.3 H Albumin/Globulin Ratio 0.8 L Lipase 26 TSH 1.14 Urine Color Urine Clarity Urine pH Ur Specific [place] Urine Protein Urine Glucose (UA) Urine Ketones Urine Occult Blood Urine Nitrite Urine Bilirubin Urine Urobilinogen Ur Leukocyte Esterase Urine RBC Urine WBC Ur Squamous Epith Cells Urine Bacteria Urine Mucus Urine Test Urine Opiates Screen Urine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 glucagon 1 mg injection 1 mg INTRAMUSCULAR PRN Or dextrose 10% iv bolus 12.5 g INTRAVENOUS PRN insulin lispro injection (rapid acting) (ADMELOG) SUBCUTANEOUS w MEALS insulin lispro injection (rapid acting) (ADMELOG) SUBCUTANEOUS AT BEDTIME polyethylene glycol 3350 17 g packet (MIRALAX, GLYCOLAX) 17 g ORAL DAILY PRN benzocaine-menthol 1 Lozenge (CEPACOL) 1 Lozenge MUCOUS MEMBRANE (TOPICAL MOUTH AND THROAT) q 2 H PRN benzonatate 100 mg cap(s) (TESSALON PERLE) 100 mg ORAL TID PRN calcium carbonate 1,000 mg chewable tab(s) (TUMS) 1,000 mg ORAL TID PRN melatonin 3 mg tab(s) 3 mg ORAL AT BEDTIME PRN senna-docusate 8.6-50 mg 1 tablet (SENNA-S) 1 tablet ORAL BID PRN ondansetron (PF) 4 mg injection (ZOFRAN) 4 mg INTRAVENOUS q 6 H PRN prochlorperazine 10 mg injection (COMPAZINE) 10 mg INTRAVENOUS q 6 H PRN HYDROmorphone 0.5 mg injection (DILAUDID) 0.5 mg INTRAVENOUS q 3 H PRN ipratropium-albuterol 3 mL nebulizer solution (DUONEB) 3 mL INHALATION q [address] 40 mg tab(s) (PROTONIX) 40 mg ORAL BID AC (0600/1600) oxyCODONE IR 5 mg tab(s) (ROXICODONE) 5 mg ORAL q 4 H PRN busPIRone 5 mg tab(s) (BUSPAR) 5 mg ORAL TID divalproex DR 250 mg tab(s) (DEPAKOTE) 250 mg ORAL DAILY divalproex DR 500 mg tab(s) (DEPAKOTE) 500 mg ORAL AT BEDTIME fludrocortisone 0.1 mg tab(s) (FLORINEF) 0.1 mg ORAL DAILY FLUoxetine 40 mg cap(s) (PROzac) 40 mg ORAL DAILY hydrOXYchloroQUINE 200 mg tab(s) (PLAQUENIL) 200 mg ORAL BID levothyroxine 125 mcg tab(s) (SYNTHROID) 125 mcg ORAL DAILY (6 AM) hydrocortisone sodium succinate (PF) 15 mg injection (Solu-CORTEF) 15 mg OTHER DAILY hydrocortisone sodium succinate (PF) 7.5 mg injection (Solu-CORTEF) 7.5 mg INTRAVENOUS DAILY (2 PM) hydrocortisone sodium succinate (PF) 7.5 mg injection (Solu-CORTEF) 7.5 mg OTHER DAILY (7 PM) NaCl 0.9% iv flush bag 20 mL INTRAVENOUS PRN ferric gluconate 125 mg in NaCl 0.9% 100 mL (FERRLECIT) 125 mg INTRAVENOUS DAILY AT 6 PM sucralfate 1 g tab(s) (CARAFATE) 1 g ORAL BID AC NaCl 0.9% iv infusion 75 mL/hr INTRAVENOUS CONTINUOUS iv contrast (radiology procedure) INTRAVENOUS DIRECTED PRN SUMAtriptan 100 mg tab(s) (IMITREX) 100 mg ORAL DIRECTED PRN Objective PHYSICAL EXAM: BP 107/68 Pulse 93 Temp (Src) 97.7 (Oral) Resp 16 Ht 5' 5" (1.65m) Wt 168 lb 14 oz (76.6kg) SpO2 96% LMP 11/27/2019 BMI 28.10 kg/(m2). O2 Therapy: Room Air Physical Exam Performed GENERAL: Alert, no distress, cooperative SKIN: No rashes or lesions. HEAD/SINUSES: No significant findings. AT/NC EYES: EOMI OROPHARYNX: MMM LUNGS: Lungs clear to auscultation, good diaphragmatic excursion CARDIAC: Normal S1 and S2; no rubs, murmurs, or gallops ABDOMEN: Abdomen soft, BS present. + Generalized tenderness, worse RUQ and epigastric EXTREMITIES: Extremities normal, no deformities, edema, clubbing or skin discoloration. Lines, Drains, and Airways Line Duration Peripheral 11/18/222026 Right Antecubital 2 days Reviewed lines and needs to be continued: REASONS: Intravenous fluids DATA: Diagnostic tests reviewed for today's visit: Most recent labs Most recent imaging Recent Labs 11/21/22 0411 11/20/22 1010 11/20/22 0449 11/19/22 0402 11/18/22201111/18/222009 WBC 7.01 -- 6.29 7.48 -- 7.47 HB 9.9* -- 10.0* 9.3* -- 10.5* PLT 284 -- 293 280 -- 314 INR -- 1.0 -- -- -- -- NA 142 -- 140 140 -- 140 K 3.7 -- 3.7 4.1 -- 4.3 CO2 34* -- 29 26 -- 26 BUN 3* -- 3* 7 -- 9 CREAT 0.70 -- 0.63 0.51* -- 0.68 AST 319* -- 585* -- -- -- ALT 665* -- 734* -- -- 101* TBILI 0.4 -- 0.5 -- -- 0.3 ALKPHOS 131* -- 133* -- -- 80 LACT -- -- -- -- 2.0 -- Assessment/Plan HOSPITAL COURSE: Sonia Szymanski is a 27 year old female with a past medical history significant for migraines, Wabasso's, Grave's s/p surgery, seizure disorder, depression and DM2 who presents with persistent nausea, vomiting and progressive weakness for the past 2-3 weeks. Problem List: (more content not included)...[facility] [id number] NoteHNO ID: [id number] Author: Polly Zuluaga APRN.HEALTH CLUB MANAGER Service: Hospital Medicine Author Type: Nurse Practitioner Type: Progress Notes Filed: 11/20/2022 12:34 PM Note Text: DEPARTMENT OF HOSPITAL MEDICINE PROGRESS NOTE SERVICE DATE: 11/20/2022 SERVICE TIME: 12:24 PM Hospital Medicine/Primary Attending: Belkis Cassidy MD NIGHT AND WEEKEND COVERAGE: COVELO COVERAGE: Days: [phone], please page attending physician. Nights: [phone], please page [facility] Night coverage pager [phone]. Subjective CC: Abdominal pain, nausea, vomiting, generalized weakness INTERVAL HPI: - Still with intermittent nausea and generalized abdominal pain, worse RUQ - No vomiting - No BM since admission - No fever or chills - Significant uptrend in LFTs - RUQ US obtained showing mild intrahepatic bile duct dilation; CBD: 7.2 mm in diameter - Discussed with GI - MRCP ordered - Patient updated on plan Current Facility-Administered Medications Medication Dose Route Frequency dextrose 40 % 15 g 15 g ORAL PRN Or glucagon 1 mg injection 1 mg INTRAMUSCULAR PRN Or dextrose 10% iv bolus 12.5 g INTRAVENOUS PRN insulin lispro injection (rapid acting) (ADMELOG) SUBCUTANEOUS w MEALS insulin lispro injection (rapid acting) (ADMELOG) SUBCUTANEOUS AT BEDTIME polyethylene glycol 3350 17 g packet (MIRALAX, GLYCOLAX) 17 g ORAL DAILY PRN benzocaine-menthol 1 Lozenge (CEPACOL) 1 Lozenge MUCOUS MEMBRANE (TOPICAL MOUTH AND THROAT) q 2 H PRN benzonatate 100 mg cap(s) (TESSALON PERLE) 100 mg ORAL TID PRN calcium carbonate 1,000 mg chewable tab(s) (TUMS) 1,000 mg ORAL TID PRN melatonin 3 mg tab(s) 3 mg ORAL AT BEDTIME PRN senna-docusate 8.6-50 mg 1 tablet (SENNA-S) 1 tablet ORAL BID PRN ondansetron (PF) 4 mg injection (ZOFRAN) 4 mg INTRAVENOUS q 6 H PRN prochlorperazine 10 mg injection (COMPAZINE) 10 mg INTRAVENOUS q 6 H PRN HYDROmorphone 0.5 mg injection (DILAUDID) 0.5 mg INTRAVENOUS q 3 H PRN ipratropium-albuterol 3 mL nebulizer solution (DUONEB) 3 mL INHALATION q [address] 40 mg tab(s) (PROTONIX) 40 mg ORAL BID AC (0600/1600) oxyCODONE IR 5 mg tab(s) (ROXICODONE) 5 mg ORAL q 4 H PRN busPIRone 5 mg tab(s) (BUSPAR) 5 mg ORAL TID divalproex DR 250 mg tab(s) (DEPAKOTE) 250 mg ORAL DAILY divalproex DR 500 mg tab(s) (DEPAKOTE) 500 mg ORAL AT BEDTIME fludrocortisone 0.1 mg tab(s) (FLORINEF) 0.1 mg ORAL DAILY FLUoxetine 40 mg cap(s) (PROzac) 40 mg ORAL DAILY hydrOXYchloroQUINE 200 mg tab(s) (PLAQUENIL) 200 mg ORAL BID levothyroxine 125 mcg tab(s) (SYNTHROID) 125 mcg ORAL DAILY (6 AM) hydrocortisone sodium succinate (PF) 15 mg injection (Solu-CORTEF) 15 mg OTHER DAILY hydrocortisone sodium succinate (PF) 7.5 mg injection (Solu-CORTEF) 7.5 mg INTRAVENOUS DAILY (2 PM) hydrocortisone sodium succinate (PF) 7.5 mg injection (Solu-CORTEF) 7.5 mg OTHER DAILY (7 PM) NaCl 0.9% iv flush bag 20 mL INTRAVENOUS PRN ferric gluconate 125 mg in NaCl 0.9% 100 mL (FERRLECIT) 125 mg INTRAVENOUS DAILY AT 6 PM sucralfate 1 g tab(s) (CARAFATE) 1 g ORAL BID AC NaCl 0.9% iv infusion 75 mL/hr INTRAVENOUS CONTINUOUS iv contrast (radiology procedure) INTRAVENOUS DIRECTED PRN Objective PHYSICAL EXAM: BP 102/73 Pulse 80 Temp (Src) 97.9 (Oral) Resp 18 Ht 5' 5" (1.65m) Wt 169 lb 15.6 oz (77.1kg) SpO2 100% LMP 11/27/2019 BMI 28.29 kg/(m2). O2 Therapy: Room Air Physical Exam Performed GENERAL: Alert, no distress, cooperative SKIN: No rashes or lesions. HEAD/SINUSES: No significant findings. AT/NC EYES: EOMI OROPHARYNX: MMM LUNGS: Lungs clear to auscultation, good diaphragmatic excursion CARDIAC: Normal S1 and S2; no rubs, murmurs, or gallops ABDOMEN: Abdomen soft, BS present. + Generalized tenderness, worse RUQ and epigastric EXTREMITIES: Extremities normal, no deformities, edema, clubbing or skin discoloration. Lines, Drains, and Airways Line Duration Peripheral 11/18/222026 Right Antecubital 1 day Reviewed lines and needs to be continued: REASONS: Intravenous fluids DATA: Diagnostic tests reviewed for today's visit: Most recent labs Most recent imaging Recent Labs 11/20/22 1010 11/20/22 0449 11/19/22 0402 11/18/22201111/18/222009 WBC -- 6.29 7.48 -- 7.47 HB -- 10.0* 9.3* -- 10.5* PLT -- 293 280 -- 314 INR 1.0 -- -- -- -- NA -- 140 140 -- 140 K -- 3.7 4.1 -- 4.3 CO2 -- 29 26 -- 26 BUN -- 3* 7 -- 9 CREAT -- 0.63 0.51* -- 0.68 AST -- 585* -- -- -- ALT -- 734* -- -- 101* TBILI -- 0.5 -- -- 0.3 ALKPHOS -- 133* -- -- 80 LACT -- -- -- 2.0 -- Assessment/Plan HOSPITAL COURSE: Sonia Szymanski is a 27 year old female with a past medical history significant for migraines, [place]'s, Grave's s/p surgery, seizure disorder, depression and DM2 who presents with persistent nausea, vomiting and progressive weakness for the past 2-3 weeks. Problem List: Nausea and vomiting Abdominal pain Diarrhea - Has had extensive work up an (more content not included)...[facility] 11-19-2022 NoteHNO ID: [id number] Author: Polly Zuluaga APRN.CNP Service: Hospital Medicine Author Type: Nurse Practitioner Type: Progress Notes Filed: 11/19/2022 6:19 PM Note Text: DEPARTMENT OF HOSPITAL MEDICINE PROGRESS NOTE SERVICE DATE: 11/19/2022 SERVICE TIME: 12:37 PM Hospital Medicine/Primary Attending: Belkis Cassidy MD NIGHT AND WEEKEND COVERAGE: [employer] COVERAGE: Days: [phone], please page attending physician. Nights: [phone], please page [facility] Night coverage pager [phone]. Subjective CC: Abdominal pain, nausea, vomiting, generalized weakness INTERVAL HPI: - Still with intermittent nausea and abdominal pain - No BM since admission - No fever or chills - Reports weakness, has been ambulating with walker at home Current Facility-Administered Medications Medication Dose Route Frequency dextrose 40 % 15 g 15 g ORAL PRN Or glucagon 1 mg injection 1 mg INTRAMUSCULAR PRN Or dextrose 10% iv bolus 12.5 g INTRAVENOUS PRN insulin lispro injection (rapid acting) (ADMELOG) SUBCUTANEOUS w MEALS insulin lispro injection (rapid acting) (ADMELOG) SUBCUTANEOUS AT BEDTIME polyethylene glycol 3350 17 g packet (MIRALAX, GLYCOLAX) 17 g ORAL DAILY PRN benzocaine-menthol 1 Lozenge (CEPACOL) 1 Lozenge MUCOUS MEMBRANE (TOPICAL MOUTH AND THROAT) q 2 H PRN benzonatate 100 mg cap(s) (TESSALON PERLE) 100 mg ORAL TID PRN calcium carbonate 1,000 mg chewable tab(s) (TUMS) 1,000 mg ORAL TID PRN melatonin 3 mg tab(s) 3 mg ORAL AT BEDTIME PRN senna-docusate 8.6-50 mg 1 tablet (SENNA-S) 1 tablet ORAL BID PRN ondansetron (PF) 4 mg injection (ZOFRAN) 4 mg INTRAVENOUS q 6 H PRN prochlorperazine 10 mg injection (COMPAZINE) 10 mg INTRAVENOUS q 6 H PRN HYDROmorphone 0.5 mg injection (DILAUDID) 0.5 mg INTRAVENOUS q 3 H PRN ipratropium-albuterol 3 mL nebulizer solution (DUONEB) 3 mL INHALATION q [address] 40 mg tab(s) (PROTONIX) 40 mg ORAL BID AC (0600/1600) oxyCODONE IR 5 mg tab(s) (ROXICODONE) 5 mg ORAL q 4 H PRN busPIRone 5 mg tab(s) (BUSPAR) 5 mg ORAL TID divalproex DR 250 mg tab(s) (DEPAKOTE) 250 mg ORAL DAILY divalproex DR 500 mg tab(s) (DEPAKOTE) 500 mg ORAL AT BEDTIME fludrocortisone 0.1 mg tab(s) (FLORINEF) 0.1 mg ORAL DAILY FLUoxetine 40 mg cap(s) (PROzac) 40 mg ORAL DAILY hydrOXYchloroQUINE 200 mg tab(s) (PLAQUENIL) 200 mg ORAL BID levothyroxine 125 mcg tab(s) (SYNTHROID) 125 mcg ORAL DAILY (6 AM) hydrocortisone sodium succinate (PF) 15 mg injection (Solu-CORTEF) 15 mg OTHER DAILY hydrocortisone sodium succinate (PF) 7.5 mg injection (Solu-CORTEF) 7.5 mg INTRAVENOUS DAILY (2 PM) hydrocortisone sodium succinate (PF) 7.5 mg injection (Solu-CORTEF) 7.5 mg OTHER DAILY (7 PM) NaCl 0.9% iv flush bag 20 mL INTRAVENOUS PRN ferric gluconate 125 mg in NaCl 0.9% 100 mL (FERRLECIT) 125 mg INTRAVENOUS DAILY AT 6 PM sucralfate 1 g tab(s) (CARAFATE) 1 g ORAL BID AC Objective PHYSICAL EXAM: BP 109/72 Pulse 65 Temp (Src) 97.7 (Oral) Resp 18 Ht 5' 5" (1.65m) Wt 175 lb 14.8 oz (79.8kg) SpO2 97% LMP 11/27/2019 BMI 29.28 kg/(m2). O2 Therapy: Room Air Physical Exam Performed GENERAL: Alert, no distress, cooperative SKIN: Skin is pale. No rashes or lesions. HEAD/SINUSES: No significant findings. AT/NC EYES: Anicteric sclera, EOMI OROPHARYNX: MMM LUNGS: Lungs clear to auscultation, good diaphragmatic excursion CARDIAC: Normal S1 and S2; no rubs, murmurs, or gallops ABDOMEN: Abdomen soft, BS present. + Generalized tenderness EXTREMITIES: Extremities normal, no deformities, edema, clubbing or skin discoloration. Lines, Drains, and Airways Line Duration Peripheral 11/18/222026 Right Antecubital <1 day Reviewed lines and needs to be continued: REASONS: Intravenous fluids DATA: Diagnostic tests reviewed for today's visit: Most recent labs Most recent imaging Recent Labs 11/19/22 0402 11/18/22201111/18/222009 WBC 7.48 -- 7.47 HB 9.3* -- 10.5* PLT 280 -- 314 NA 140 -- 140 K 4.1 -- 4.3 CO2 26 -- 26 BUN 7 -- 9 CREAT 0.51* -- 0.68 ALT -- -- 101* TBILI -- -- 0.3 ALKPHOS -- -- 80 LACT -- 2.0 -- Assessment/Plan HOSPITAL COURSE: Sonia Szymanski is a 27 year old female with a past medical history significant for migraines, Slade's, Grave's s/p surgery, seizure disorder, depression and DM2 who presents with persistent nausea, vomiting and progressive weakness for the past 2-3 weeks. Problem List: Nausea and vomiting Abdominal pain Diarrhea - Has had extensive work up and multiple hospitalizations over the past few months without significant findings aside from moderate stool burden - Admits to THC use about 2 weeks ago with worsening symptoms so she stopped using it - Abdominal XR no acute process - GI following and recommends Protonix 40mg BID and adding Carafate - Checking stool studies - Anemia work up - Consider repeat EGD and colonoscopy - Consider gastric emptying study Generalized (more content not included)...[facility] [id number] NoteHNO ID: [id number] Author: Interface Note Service: ? Author Type: ? Type: Progress Notes Filed: 11/19/2022 4:18 AM Note Text: Epic Scheduled Downtime: 11/19/2022 1:00:00 AM to 11/19/2022 3:56:00 AMAdams County [id number] NoteCOVID 19 RESULT: SARS-CoV-2 (Agent of COVID-19) Not Detected by RT-PCR or equivalent method. This test has been authorized by FDA under an Emergency Use Authorization (EUA). INFLUENZA A PCR: Negative for Influenza A by RT-PCR INFLUENZA B PCR: Negative for Influenza B by RT-PCR RSV PCR: Negative for Respiratory Syncytial Virus (RSV) by PCRAdams County HospitalComment on above:Performed By: #### [id number] ####[facility] LABORATORYCLIA [id number] [place], [place] [id number] [place] [address] OF [id number] NoteHNO ID: [id number] Author: Amol Maya RPh Service: Pharmacy Author Type: Pharmacist Type: Plan of Care Filed: 11/18/2022 9:07 PM Note Text: PHARMACY MEDICATION REVIEW Patient Name: Sonia Szymanski : 1995 The following medications were updated within the TWIST PACKER medication list: Medications ADDED to TWIST PACKER medication list hydroxychloroquine Medications CHANGED on TWIST PACKER medication list none Medications REMOVED from TWIST PACKER medication list bactrim Additional comments: N/A The below information represents the best possible medication history: Yes Medication history completed by: ED Pharmacist Amol Maya [facility] Source of history: Patient: Reliability of source: Appears reliable, clearly identified: Medication name, Medication dose, Medication frequency, and Timing of last dose and Pharmacy records Medication nonadherence identified: No barriers noted Reconciliation completed: No, patient not yet admitted. Patient interested in Bedside Delivery Services or using OP Pharmacy at discharge? Unable to assess Preferred outpatient pharmacy: e- [facility] [address] [place] [address] - [address] [facility] [phone] e- [facility] [address] [place] [id number] [address] [facility] [phone] [facility] e- [id number] [place] [address] - [address] [facility], [address] - [phone] Allergies: Prednisone Anaphylaxis Comment:Had at the same time as Z-trinidad - unsure which caused the anaphylaxis Ipk-Sgjozglcyttps-L* Anaphylaxis Excedrin [Acetamino* Swelling Comment:Mouth, can take tylenol Latex Rash, Hives Comment:at site Neosporin [Neomycin* Hives Voltaren [Diclofena* Other: See Comments Comment:Nausea Zithromax [Azithrom* Anaphylaxis Comment:Hospitalized on 07/03/14 for this Prior to Admission Medications Prescriptions Last Dose Informant Patient Reported? Taking? AJOVY AUTOINJECTOR 225 mg/1.5 mL auto-injector No No Sig: INJECT 1.5 ML SUBCUTANEOUSLY ONCE EVERY MONTH Blood-Glucose Meter No No Sig: Use to check blood sugar 3-4 times daily. FLUoxetine (PROZAC) 40 mg capsule 11/18/2022 No Yes Sig: Take 1 capsule by mouth once daily. Food Supplement, Lactose-Free (NUTRITIONAL DRINK) liqd No No Sig: Take 237 mL by mouth three times daily with meals. Lancets lancets No No Sig: Use as instructed SOLU-CORTEF, PF, ACT-O-VIAL 100 mg/2 mL solr No No Sig: Inject 2 mL intramuscularly as needed. Syringe with Needle, Disp, (BD TUBERCULIN SYRINGE) 1 mL 27 x 1/2" No No Si Each three times daily. acarbose (PRECOSE) 25 mg tablet 11/18/2022 No Yes Sig: Take 1 tablet by mouth three times daily. acetaminophen (TYLENOL) 500 mg tablet No No Si tablets by ORAL/FEEDING TUBE route every 8 hours as needed for pain. albuterol (PROVENTIL) 2.5 mg /3 mL (0.083 %) nebulizer solution No No Sig: Use 3 mL via nebulizer every 4 hours as needed for wheezing/shortness of breath. Use over 5-15minutes. albuterol HFA (PROAIR HFA) 90 mcg/actuation inhaler No No Sig: Inhale 2 Puffs as instructed every 4 hours as needed. alcohol swabs No No Six/d blood sugar diagnostic (BLOOD GLUCOSE TEST) test strip No No Sig: Use as instructed busPIRone (BUSPAR) 5 mg tablet 11/18/2022 No Yes Sig: Take 1 tablet by mouth three times daily. cyclobenzaprine (FLEXERIL) 10 mg tablet No No Sig: Take 1 tablet by mouth three times daily as needed. divalproex DR (DEPAKOTE) 250 mg EC tablet 11/18/2022 No Yes Sig: Take 1 tablet by mouth every morning AND 2 tablets every evening. eletriptan (RELPAX) 40 mg tablet No No Sig: At migraine onset. may repeat in 2 hours if necessary esomeprazole (NEXIUM) 40 mg capsule 11/18/2022 No Yes Sig: Take 1 capsule by mouth once daily. estradiol (CLIMARA) 0.0375 mg/24 hr Past Week No Yes Sig: Apply 1 Patch as directed one time a week. fludrocortisone (FLORINEF) 0.1 mg tablet 11/18/2022 No Yes Sig: Take 1 tablet by mouth once daily. glimepiride (AMARYL) 1 mg tablet 11/18/2022 No Yes Sig: Take 1 tablet by mouth once daily. glucagon (GVOKE HYPOPEN 2-PACK) 1 mg/0.2 mL AutoInjector No No Sig: Inject 1 mg subcutaneously as needed. hydrOXYchloroQUINE (PLAQUENIL) 200 mg tablet 11/18/2022 Yes Yes Sig: Take 200 mg by mouth twice daily. hydrocortisone sodium succinate (SOLU-CORTEF) 100 mg injection 11/18/2022 No Yes Si mg q am 7.5 mg 2p 7.5 mg 7 pm levothyroxine (SYNTHROID) 125 mcg tablet 11/18/2022 No Yes Sig: Take 1 tablet by mouth once daily. metFORMIN ER (GLUCOPHAGE XR) 500 mg 24 hr tablet 11/18/2022 No Yes Sig: Take 1 tablet by mouth once daily. oxybutynin (DITROPAN) 5 mg tablet 11/18/2022 No Yes Sig: Take 1 tablet by mouth three times daily. peg 3350-Electrolytes (GOLYTELY) 236-22.74-6.74 -5.86 gram suspension No No Sig: Refer to printed patient instructions that will be mailed to you. promethazine (PHENERGAN) 25 mg tablet No No Sig: Take 1 tablet by mouth every 6 hours as needed. scopolamine (TR (more content not included)...[facility] [id number] History of Present illness Narrative* Isaias Bradley MD - 11/18/2022 4:03 PM EST Patient presents with: ER F/U HPI: Patient presents today for office visit for ER F/U. Complicated hx. Since last saw Mickey in September. Has lost 11 lbs in a month. Been to [facility] or [facility] 5 times in the last month. 7 ER visits between July and September for various complaints. Has not been back into see neurology or cardiology in some time. Has been following with endo. Was hospitalized at [facility] due to gi issues and Addisons in 08/13. Is scheduled for a colonoscopy next week. Has a very large complicated number of complaints. 1. Passed out in the last month. No warning. Has worsening palpitations. Reports that her heart rate is varying from 115-150. When syncopal fell down a flight of steps and was then seen at [facility] ER. . Had negative ct brain, cervical spine and multiple xrays, labs and ekg. She did not wait to be ambulated and wanted to leave. So was discharged from the ER at that time. 2. Has been very unsteady on her feet. Also fell recently and hit her right hip. Has a bruise on hit. Has severe generalized weakness to the point her is having to help her shower. She is getting to the pont that she is unable to care for self at home. Is barely ambulating with a walker. 3. States she has been unable to eat for over a week. Has had issues drinking. Reports she has onlybeen able to drink one ensure in the last day and cannot keep it down. Is still urinating but not nearly as much. 4. Has chronic diarrhea. Has had ct of abd done yesterday at [facility] that was unremarkable other than a large amount of stool. Has frequent vomiting as well. Has generalized abd pain. 5. She was concerned because her lactate was high in the er yesterday and they discussed admitting her but then discharged her. 6. She has severe headaches for six days. Has a hx of migraines. Was seeing neurology for migrainesand seizures vs PNES, however, it looks like she has not been back to them in some time. 7. She has followed her sugars which apparently have been stable. 8. No new cough, dysuria etc. Is concerned because she has had covid three times in the last year or so. MEDICATIONS: Current Outpatient Medications Medication Sig peg 3350-Electrolytes (GOLYTELY) 236-22.74-6.74 -5.86 gram suspension Refer to printed patient instructions that will be mailed to you. levothyroxine (SYNTHROID) 125 mcg tablet Take 1 tablet by mouth once daily. estradiol (CLIMARA) 0.0375 mg/24 hr Apply 1 Patch as directed one time a week. Food Supplement, Lactose-Free (NUTRITIONAL DRINK) liqd Take 237 mL by mouth three times daily with meals. cyclobenzaprine (FLEXERIL) 10 mg tablet Take 1 tablet by mouth three times daily as needed. fludrocortisone (FLORINEF) 0.1 mg tablet Take 1 tablet by mouth once daily. glimepiride (AMARYL) 1 mg tablet Take 1 tablet by mouth once daily. divalproex DR (DEPAKOTE) 250 mg EC tablet Take 1 tablet by mouth every morning AND 2 tablets every evening. sulfamethoxazole-trimethoprim (BACTRIM DS,SEPTRA DS) 800-160 mg per tablet Take 1 tablet by mouth twice daily. oxybutynin (DITROPAN) 5 mg tablet Take 1 tablet by mouth three times daily. Blood-Glucose Meter Use to check blood sugar 3-4 times daily. Lancets lancets Use as instructed blood sugar diagnostic (BLOOD GLUCOSE TEST) test strip Use as instructed metFORMIN ER (GLUCOPHAGE XR) 500 mg 24 hr tablet Take 1 tablet by mouth once daily. acetaminophen (TYLENOL) 500 mg tablet 2 tablets by ORAL/FEEDING TUBE route every 8 hours as needed for pain. hydrocortisone sodium succinate (SOLU-CORTEF) 100 mg injection 15 mg q am 7.5 mg 2p 7.5 mg 7 pm SOLU-CORTEF, PF, ACT-O-VIAL 100 mg/2 mL solr Inject 2 mL intramuscularly as needed. esomeprazole (NEXIUM) 40 mg capsule Take 1 capsule by mouth once daily. Syringe with Needle, Disp, (BD TUBERCULIN SYRINGE) 1 mL 27 x 1/2" 1 Each three times daily. alcohol swabs 3x/d busPIRone (BUSPAR) 5 mg tablet Take 1 tablet by mouth three times daily. scopolamine (TRANSDERM-SCOP) patch 1.5 mg/72 hr (delivers 1 mg over 3 days) Apply 1 Patch as directed every 72 hours. As needed promethazine (PHENERGAN) 25 mg tablet Take 1 tablet by mouth every 6 hours as needed. albuterol HFA (PROAIR HFA) 90 mcg/actuation inhaler Inhale 2 Puffs as instructed every 4 hours as needed. FLUoxetine (PROZAC) 40 mg capsule Take 1 capsule by mouth once daily. acarbose (PRECOSE) 25 mg tablet Take 1 tablet by mouth three times daily. glucagon (GVOKE HYPOPEN 2-PACK) 1 mg/0.2 mL AutoInjector Inject 1 mg subcutaneously as needed. AJOVY AUTOINJECTOR 225 mg/1.5 mL auto-injector INJECT 1.5 ML SUBCUTANEOUSLY ONCE EVERY MONTH eletriptan (RELPAX) 40 mg tablet At migraine onset. may repeat in 2 hours if necessary albuterol (PROVENTIL) 2.5 mg /3 mL (0.083 %) nebulizer solution Use 3 mL via nebulizer every 4 hours as needed for wheezing/shortness of breath. Use over 5-15minutes. No current facility-administered medications for this visit. ALLERGIES: ALLERGIES Allergen Reactions Prednisone Anaphylaxis Had at the same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 07/04/2022 8:00 PM EDT Problem: Patient Care Overview Goal: Discharge Needs Assessment Outcome: Ongoing Problem: Nutrition, Imbalanced: Inadequate Oral Intake (Adult) Goal: Improved Oral Intake Description: Patient will demonstrate the desired outcomes by discharge/transition of care. Outcome: Ongoing Problem: Nausea/Vomiting (Adult) Goal: Adequate Hydration Description: Patient will demonstrate the desired outcomes by discharge/transition of care. Outcome: Ongoing Problem: Fall/Trauma/Injury Risk (Adult) Goal: Knowledge of risk factors/behavior modification Description: Knowledge of risk factors/behavior modification for fall/injury prevention Outcome: Ongoing Problem: Nutrition, Enteral (Adult) Goal: Signs and Symptoms of Listed Potential Problems Will be Absent, Minimized or Managed (Nutrition, Enteral) Description: Signs and symptoms of listed potential problems will be absent, minimized or managed by discharge/transition of care (reference Nutrition, Enteral (Adult) CPG). Outcome: Ongoing * Nursing Notes - Porsha Moon RN - 07/04/2022 4:22 PM EDT Report called to SKIP Hahn * Nursing Notes - Jeanette Dial RN - 07/04/2022 4:21 PM EDT Anticipated Discharge Plan: Expected discharge date: 07/05/2022 Anticipated Discharge Disposition: Home (with outpatient PT/OT in her local area) Potential Barriers: Pain control, pending GI final recommendations Family expected to provide transportation. 07/01/22 1624 Patient Coping/Stress Concerns Patient/Family In Agreement With Plan yes Final Discharge Planning Discharge Disposition Home CM/SW AVS Portion Completed Yes Transport Request Mode of Transfer private vehicle Accompanied By family member Signed, Hayder Rivers, R.N. Clinical Chute Builder * Nursing Notes - Selma Cortés RN - 07/04/2022 3:15 PM EDT Second assessment complete. No changes from AM assessment. Pt denies any needs at this time. Pt is resting with call light in reach. Selma Cortés RN * Plan of Care - Selma Cortés RN - 07/04/2022 9:40 AM EDT Problem: Patient Care Overview Goal: Plan of Care Review Outcome: Ongoing Goal: Individualization & Mutuality Outcome: Ongoing Problem: Nutrition, Imbalanced: Inadequate Oral Intake (Adult) Goal: Identify Related Risk Factors and Signs and Symptoms Description: Related risk factors and signs and symptoms are identified upon initiation of Human Response Clinical Practice Guideline (CPG) Outcome: Ongoing Goal: Improved Oral Intake Description: Patient will demonstrate the desired outcomes by discharge/transition of care. Outcome: Ongoing * Nursing Notes - Liv Last RN - 07/04/2022 4:00 AM EDT Second assessment complete, no changes noted at this time in flowsheets. Pt resting in bed, call light within reach. RN will continue to monitor. * Plan of Care - Liv Last RN - 07/03/2022 8:00 PM EDT Problem: Patient Care Overview Goal: Plan of Care Review Outcome: Ongoing Problem: Nutrition, Imbalanced: Inadequate Oral Intake (Adult) Goal: Identify Related Risk Factors and Signs and Symptoms Description: Related risk factors and signs and symptoms are identified upon initiation of Human Response Clinical Practice Guideline (CPG) Outcome: Ongoing Problem: Nausea/Vomiting (Adult) Goal: Identify Related Risk Factors and Signs and Symptoms Description: Related risk factors and signs and symptoms are identified upon initiation of Human Response Clinical Practice Guideline (CPG) Outcome: Ongoing Problem: Fall/Trauma/Injury Risk (Adult) Goal: Fall/Trauma/Injury Risk: Absence of Trauma/Injury/Falls Description: Patient will demonstrate the desired outcomes. Outcome: Ongoing Problem: Nutrition, Enteral (Adult) Goal: Signs and Symptoms of Listed Potential Problems Will be Absent, Minimized or Managed (Nutrition, Enteral) Description: Signs and symptoms of listed potential problems will be absent, minimized or managed by discharge/transition of care (reference Nutrition, Enteral (Adult) CPG). Outcome: Ongoing * Nursing Notes - Lori Olmstead RN - 07/03/2022 4:50 PM EDT Second assessment complete, no changes noted. Patient resting in bed with call light in reach. Denies any unmet needs, will continue to monitor. * Nursing Notes - Lori Olmstead RN - 07/03/2022 3:[address] Begum, administered Hydromorphone to pt for what seemed to be breakthrough pain prior to 12 hour time frame administration. * Plan of Care - Lori Olmstead RN - 07/03/2022 9:00 AM EDT Problem: Nutrition, Imbalanced: Inadequate Oral Intake (Adult) Goal: Identify Related Risk Factors and Signs and Symptoms Description: Related risk factors and signs and symptoms are identified upon initiation of Human Response Clinical Practice Guideline (CPG) Outcome: Ongoing Goal: Improved Oral Intake Description: Patient will demonstrate the desired outcomes by discharge/transition of care. Outcome: Ongoing Goal: Prevent Further Weight Loss Description: Patient will demonstrate the desired outcomes by discharge/transition of care. Outcome: Ongoing * Nursing Notes - Charline Deleon RN - 07/03/2022 4:47 AM EDT Second assessment done. No changes noted from initial assessment unless noted in chart. Patient is resting, call light within reach. RN continue monitoring. * Plan of Care - Charline Deleon RN - 07/03/2022 2:10 AM EDT Problem: Patient Care Overview Goal: Plan of Care Review Outcome: Ongoing Goal: Individualization & Mutuality Outcome: Ongoing Goal: Discharge Needs Assessment Outcome: Ongoing Problem: Nutrition, Imbalanced: Inadequate Oral Intake (Adult) Goal: Identify Related Risk Factors and Signs and Symptoms Description: Related risk factors and signs and symptoms are identified upon initiation of Human Response Clinical Practice Guideline (CPG) Outcome: Ongoing Goal: Improved Oral Intake Description: Patient will demonstrate the desired outcomes by discharge/transition of care. Outcome: Ongoing * Nursing Notes - Lori Olmstead RN - 07/02/2022 4:13 PM EDT Second assessment complete, no changes noted. Patient resting in bed with call light in reach. Denies any unmet needs, will continue to monitor. * Plan of Care - Lori Olmstead RN - 07/02/2022 10:18 AM EDT Problem: Nutrition, Imbalanced: Inadequate Oral Intake (Adult) Goal: Identify Related Risk Factors and Signs and Symptoms Description: Related risk factors and signs and symptoms are identified upon initiation of Human Response Clinical Practice Guideline (CPG) Outcome: Ongoing Goal: Improved Oral Intake Description: Patient will demonstrate the desired outcomes by discharge/transition of care. Outcome: Ongoing Problem: Nausea/Vomiting (Adult) Goal: Symptom Relief Description: Patient will demonstrate the desired outcomes by discharge/transition of care. Outcome: Ongoing Goal: Adequate Hydration Description: Patient will demonstrate the desired outcomes by discharge/transition of care. Outcome: Ongoing * Nursing Notes - Charline Deleon RN - 07/02/2022 3:06 AM EDT Second assessment done. No changes noted from initial assessment unless noted in chart. Patient is resting, call light within reach. * Plan of Care - Charline Deleon RN - 07/02/2022 3:04 AM EDT Problem: Patient Care Overview Goal: Plan of Care Review Outcome: Ongoing Goal: Individualization & Mutuality Outcome: Ongoing Goal: Discharge Needs Assessment Outcome: Ongoing Problem: Nutrition, Imbalanced: Inadequate Oral Intake (Adult) Goal: Identify Related Risk Factors and Signs and Symptoms Description: Related risk factors and signs and symptoms are identified upon initiation of Human Response Clinical Practice Guideline (CPG) Outcome: Ongoing Goal: Improved Oral Intake Description: Patient will demonstrate the desired outcomes by discharge/transition of care. Outcome: Ongoing Problem: Nausea/Vomiting (Adult) Goal: Identify Related Risk Factors and Signs and Symptoms Description: Related risk factors and signs and symptoms are identified upon initiation of Human Response Clinical Practice Guideline (CPG) Outcome: Ongoing Goal: Symptom Relief Description: Patient will demonstrate the desired outcomes by discharge/transition of care. Outcome: Ongoing * Nursing Notes - Charline Deleon RN - 07/01/2022 10:00 PM EDT Patient complains of pain abdomen after dinner. Medication given see ACE. informed. Will give report to day shift nurse for further management. * Nursing Notes - Jeanette Dial RN - 07/01/2022 4:24 PM EDT Discharge plan is home (with outpatient PT/OT in her local area) when medically stable. Family expected to provide transportation. 07/01/22 1624 Patient Coping/Stress Concerns Patient/Family In Agreement With Plan yes Final Discharge Planning Discharge Disposition Home CM/SW AVS Portion Completed Yes Transport Request Mode of Transfer private vehicle Accompanied By family member Signed, Raj Rivers.SCarmel., R.N. Clinical [employer] * Plan of Care - Jewell Vazquez RD - 07/01/2022 4:15 PM EDT NUTRITION RECOMMENDATIONS AND PLAN OF CARE 1.Tolerate Regular diet w/50 - 75% intake of meals. Provide Ensure Plus high proteinTID (350 calories and 20 g protein). 2. Receiving TF Jevity 1.5 at 50 mL/hr. For nutrition support. This provides 1800 Kcals/d and 77 gms Pro/d w/912 ml water/d. Additional water indicated for hydration needs. -DC NG, trial PO diet (perM.D. today) 3. At refeeding risk, supplement thiamine 100 mg x 5-7 days. Monitor potassium, phosphorus, and magnesium 4 Monitor wt status. 5 Glycemic control. 6 Follow and monitor po intake, tube feeding, wt, labs, skin and bowel function. * Nursing Notes - Selma Cortés RN - 07/01/2022 4:00 PM EDT Second assessment complete. No changes from AM assessment, other than pt's NG tube was removed. Pt denies any needs at this time. Pt is resting with call light in reach. Selma Cortés RN * Plan of Care - Selma Cortés RN - 07/01/2022 11:59 AM EDT Problem: Patient Care Overview Goal: Plan of Care Review Outcome: Ongoing Goal: Individualization & Mutuality Outcome: Ongoing Problem: Nutrition, Imbalanced: Inadequate Oral Intake (Adult) Goal: Identify Related Risk Factors and Signs and Symptoms Description: Related risk factors and signs and symptoms are identified upon initiation of Human Response Clinical Practice Guideline (CPG) Outcome: Ongoing Goal: Improved Oral Intake Description: Patient will demonstrate the desired outcomes by discharge/transition of care. Outcome: Ongoing * Nursing Notes - Selma Cortés RN - 07/01/2022 11:17 AM EDT Assumed care of this patient. Assessment noted in flow sheet. * Plan of Care - Trung Perez RN - 07/01/2022 3:33 AM EDT Problem: Patient Care Overview Goal: Plan of Care Review Outcome: Ongoing Goal: Individualization & Mutuality Outcome: Ongoing Goal: Discharge Needs Assessment Outcome: Ongoing Problem: Nutrition, Imbalanced: Inadequate Oral Intake (Adult) Goal: Identify Related Risk Factors and Signs and Symptoms Description: Related risk factors and signs and symptoms are identified upon initiation of Human Response Clinical Practice Guideline (CPG) Outcome: Ongoing Goal: Improved Oral Intake Description: Patient will demonstrate the desired outcomes by discharge/transition of care. Outcome: Ongoing Goal: Prevent Further Weight Loss Description: Patient will demonstrate the desired outcomes by discharge/transition of care. Outcome: Ongoing Problem: Nausea/Vomiting (Adult) Goal: Identify Related Risk Factors and Signs and Symptoms Description: Related risk factors and signs and symptoms are identified upon initiation of Human Response Clinical Practice Guideline (CPG) Outcome: Ongoing Goal: Symptom Relief Description: Patient will demonstrate the desired outcomes by discharge/transition of care. Outcome: Ongoing Goal: Adequate Hydration Description: Patient will demonstrate the desired outcomes by discharge/transition of care. Outcome: Ongoing Problem: Fall/Trauma/Injury Risk (Adult) Goal: Fall/Trauma/Injury Risk: Absence of Trauma/Injury/Falls Description: Patient will demonstrate the desired outcomes. Outcome: Ongoing Goal: Knowledge of risk factors/behavior modification Description: Knowledge of risk factors/behavior modification for fall/injury prevention Outcome: Ongoing Admitted for n/v/abd pain, treated with placement of NG tube and tube feeds; patient has poor po intake, and reports severe pain when eating food. Tolerating tube feeds with occasional complaints of pain, nausea. Plan is to encourage PO intake with goal to withdraw NG tube, treat pain with PO pain medications (with IV on board for breakthrough pain -- RN tells patient she can have a dose only once a shift, a stipulation patient agrees to) and nausea with prn nausea meds. Anticiapte discharge tohome when clinically appropriate * Nursing Notes - Harpal Alexander RN - 06/30/2022 5:32 PM EDT Patient reassessed no new findings at this time, RN to continue to monitor. * Plan of Care - ARACELY Boston - 06/30/2022 1:13 PM EDT Problem: [employer]OR - Dysphagia Goal: PO Trial 2 Description: Patient will accept various trials of liquid and solid consistencies (10 trials of each consistency) with no signs/symptoms of laryngeal penetration/aspiration and no respiratory complications to determine the readiness for diet advancement vs an instrumental swallow assessment, over the course of 2 sessions. Outcome: Completed Note: Pt consumed 3 trials regular solid (hard cookie) w/functional mastication and complete oral clearance and x6 trial thin liquid via straw (chocolate milk) with no overt s/sx of penetration/aspiration. Pt endorsed discomfort with swallow, reporting she can feel the tube as she swallows, howeverthis does not appear to impact swallow function or safety. * Plan of Care - Harpal Alexander RN - 06/30/2022 12:11 PM EDT Problem: Nutrition, Imbalanced: Inadequate Oral Intake (Adult) Goal: Identify Related Risk Factors and Signs and Symptoms Description: Related risk factors and signs and symptoms are identified upon initiation of Human Response Clinical Practice Guideline (CPG) Outcome: Ongoing Goal: Improved Oral Intake Description: Patient will demonstrate the desired outcomes by discharge/transition of care. Outcome: Ongoing Goal: Prevent Further Weight Loss Description: Patient will demonstrate the desired outcomes by discharge/transition of care. Outcome: Ongoing Problem: Nausea/Vomiting (Adult) Goal: Identify Related Risk Factors and Signs and Symptoms Description: Related risk factors and signs and symptoms are identified upon initiation of Human Response Clinical Practice Guideline (CPG) Outcome: Ongoing Goal: Symptom Relief Description: Patient will demonstrate the desired outcomes by discharge/transition of care. Outcome: Ongoing Goal: Adequate Hydration Description: Patient will demonstrate the desired outcomes by discharge/transition of care. Outcome: Ongoing Problem: Fall/Trauma/Injury Risk (Adult) Goal: Fall/Trauma/Injury Risk: Absence of Trauma/Injury/Falls Description: Patient will demonstrate the desired outcomes. Outcome: Ongoing Goal: Knowledge of risk factors/behavior modification Description: Knowledge of risk factors/behavior modification for fall/injury prevention Outcome: Ongoing Problem: Patient Care Overview Goal: Interdisciplinary Rounds/Family Conf Outcome: Completed Flowsheets (Taken 06/30/2022 1210) Participants: patient physician nursing * Plan of Care - Trung Perez RN - 06/30/2022 6:10 AM EDT Problem: Patient Care Overview Goal: Plan of Care Review Outcome: Ongoing Goal: Individualization & Mutuality Outcome: Ongoing Goal: Discharge Needs Assessment Outcome: Ongoing Goal: Interdisciplinary Rounds/Family Conf Outcome: Ongoing Problem: [employer]OR - Dysphagia Goal: PO Trial 2 Description: Patient will accept various trials of liquid and solid consistencies (10 trials of each consistency) with no signs/symptoms of laryngeal penetration/aspiration and no respiratory complications to determine the readiness for diet advancement vs an instrumental swallow assessment, over the course of 2 sessions. Outcome: Ongoing Problem: Nutrition, Imbalanced: Inadequate Oral Intake (Adult) Goal: Identify Related Risk Factors and Signs and Symptoms Description: Related risk factors and signs and symptoms are identified upon initiation of Human Response Clinical Practice Guideline (CPG) Outcome: Ongoing Goal: Improved Oral Intake Description: Patient will demonstrate the desired outcomes by discharge/transition of care. Outcome: Ongoing Goal: Prevent Further Weight Loss Description: Patient will demonstrate the desired outcomes by discharge/transition of care. Outcome: Ongoing Problem: Nausea/Vomiting (Adult) Goal: Identify Related Risk Factors and Signs and Symptoms Description: Related risk factors and signs and symptoms are identified upon initiation of Human Response Clinical Practice Guideline (CPG) Outcome: Ongoing Goal: Symptom Relief Description: Patient will demonstrate the desired outcomes by discharge/transition of care. Outcome: Ongoing Goal: Adequate Hydration Description: Patient will demonstrate the desired outcomes by discharge/transition of care. Outcome: Ongoing Admitted for abdominal pain, nausea, vomiting. NG tube placed, tolerating tube feeds. Able to eat small amounts of food and drink (was able to take meds by mouth as well). Anticipate transitioning Prudence intake and discontinuation of NG tube, before eventual discharge to home * Nursing Notes - Zoie Mauro RN - 06/29/2022 3:12 PM EDT Patient reassessed no new findings at this time, RN to continue to monitor. * Plan of Care - Zoie Mauro RN - 06/29/2022 8:31 AM EDT Problem: Patient Care Overview Goal: Plan of Care Review Outcome: Ongoing Goal: Individualization & Mutuality Outcome: Ongoing Goal: Discharge Needs Assessment Outcome: Ongoing Goal: Interdisciplinary Rounds/Family Conf Outcome: Ongoing Problem: Nutrition, Imbalanced: Inadequate Oral Intake (Adult) Goal: Identify Related Risk Factors and Signs and Symptoms Description: Related risk factors and signs and symptoms are identified upon initiation of Human Response Clinical Practice Guideline (CPG) Outcome: Ongoing Goal: Improved Oral Intake Description: Patient will demonstrate the desired outcomes by discharge/transition of care. Outcome: Ongoing * Nursing Notes - Jeanette Dial RN - 06/28/2022 4:36 PM EDT Admission Screening for Discharge Planning Patient is here for nausea & vomiting. After review of chart and discussion with treatment team, Chute Builder has not identified needs at this time. Patient is expected to discharge home (able totolerate oral food and medication per Dr. Lua). Should discharge needs arise please place a consult order for case management. 06/28/22 0824 Patient Assessment Completed Patient Assessment Completed Screening Initial Discharge Planning Anticipated discharge disposition Home Transportation Available for Discharge Family or Friend Anticipated DME none Admission Assessment Reason for Admission nausea & vomiting Has the patient been admitted to any hospital in the last 30 days? No Outpatient Providers Does patient have a primary care physician? Yes Environment/Caregivers Is the patient from a facility or care home? No Services Does the patient use a home health or hospice agency? No Medication Management Does the patient have prescription insurance coverage? Yes Risk of Readmission: 4.4 Category Reference: High:16-100 Mod-High:10-16 Mod-Low: 5-10 Low: 0-5 Signed, Sunil RiversNKaye, R.N. Clinical [employer] * Nursing Notes - Zoie Mauro RN - 06/28/2022 3:34 PM EDT Patient reassessed no new findings at this time, RN to continue to monitor. * Plan of Care - Zoie Mauro RN - 06/28/2022 10:08 AM EDT Problem: Patient Care Overview Goal: Plan of Care Review Outcome: Ongoing Goal: Individualization & Mutuality Outcome: Ongoing Goal: Discharge Needs Assessment Outcome: Ongoing Goal: Interdisciplinary Rounds/Family Conf Outcome: Ongoing Problem: Nutrition, Imbalanced: Inadequate Oral Intake (Adult) Goal: Identify Related Risk Factors and Signs and Symptoms Description: Related risk factors and signs and symptoms are identified upon initiation of Human Response Clinical Practice Guideline (CPG) Outcome: Ongoing Goal: Improved Oral Intake Description: Patient will demonstrate the desired outcomes by discharge/transition of care. Outcome: Ongoing * Nursing Notes - Gill Recio RN - 06/28/2022 2:34 AM EDT Second assessment completed, unchanged from previous. Pt resting calmly with call light and belongings in reach. * Nursing Notes - Ree Alonzo RN - 06/27/2022 3:51 PM EDT Second assessment completed without changes from previous. Will continue to monitor. Ree Alonzo RN * Plan of Care - Ree Alonzo RN - 06/27/2022 10:36 AM EDT Problem: Patient Care Overview Goal: Plan of Care Review Outcome: Ongoing Problem: Nutrition, Imbalanced: Inadequate Oral Intake (Adult) Intervention: Promote/Optimize Nutrition Flowsheets (Taken 06/27/2022 1036) Oral Nutrition Promotion: rest periods promoted Problem: Nausea/Vomiting (Adult) Intervention: Minimize Nausea Triggers/Manage Symptoms Flowsheets (Taken 06/27/2022 1036) Nausea/Vomiting Interventions: antiemetic given * Nursing Notes - Charline Deleon RN - 06/27/2022 4:38 AM EDT Patient verbalized mild nausea and abdominal discomfort but not worst. MD notified suggested to increased by 10ml/hr. See MAR. * Nursing Notes - Charline Deleon RN - 06/27/2022 3:23 AM EDT Second assessment done. No changes noted from initial assessment unless noted in chart. Patient is resting, call light within reach. No complain verbalized by the patient at this time. RN continue monitoring. * Plan of Care - Charline Deleon RN - 06/27/2022 3:23 AM EDT Problem: Patient Care Overview Goal: Plan of Care Review Outcome: Ongoing Goal: Individualization & Mutuality Outcome: Ongoing Goal: Discharge Needs Assessment Outcome: Ongoing Problem: Nutrition, Imbalanced: Inadequate Oral Intake (Adult) Goal: Identify Related Risk Factors and Signs and Symptoms Description: Related risk factors and signs and symptoms are identified upon initiation of Human Response Clinical Practice Guideline (CPG) Outcome: Ongoing Goal: Improved Oral Intake Description: Patient will demonstrate the desired outcomes by discharge/transition of care. Outcome: Ongoing Goal: Prevent Further Weight Loss Description: Patient will demonstrate the desired outcomes by discharge/transition of care. Outcome: Ongoing Problem: Nausea/Vomiting (Adult) Goal: Identify Related Risk Factors and Signs and Symptoms Description: Related risk factors and signs and symptoms are identified upon initiation of Human Response Clinical Practice Guideline (CPG) Outcome: Ongoing Goal: Symptom Relief Description: Patient will demonstrate the desired outcomes by discharge/transition of care. Outcome: Ongoing * Nursing Notes - Charline Deleon RN - 06/27/2022 2:24 AM EDT Patient complains of nausea and mild abdominal discomfort. Inj Zofran administered. NG feeding running 30ml/hr. MD informed and suggested to monitor symptom for next 2 hour and will modified rate according to her symptoms. * Plan of Care - Dulce Wilson RN - 06/26/2022 4:00 PM EDT Problem: Patient Care Overview Goal: Plan of Care Review Outcome: Ongoing Problem: Nutrition, Imbalanced: Inadequate Oral Intake (Adult) Goal: Improved Oral Intake Description: Patient will demonstrate the desired outcomes by discharge/transition of care. Outcome: Ongoing Problem: Nausea/Vomiting (Adult) Goal: Symptom Relief Description: Patient will demonstrate the desired outcomes by discharge/transition of care. Outcome: Ongoing * Nursing Notes - Dulce Wilson RN - 06/26/2022 3:21 PM EDT Patient reassessed and still with complaints of continued nausea. Jevity 1.5 william running at 10 ml, and patient denying emesis since initiation. PRN pain medications administered as needed. Call lightwithin reach. Will continue to monitor. * Plan of Care - Martha Purcell RD - 06/26/2022 11:38 AM EDT Nutrition Recommendations and Plan of Care: 1.Diet progression as tolerated. Ensure Clear TID while on CLD (240 calories and 8 g protein) Ensure Plus TID (350 calories and 20 g protein) if on FLD/ Regular diet 2.Continued poor PO intakes. If TF becomes part of plan of care recommend Jevity 1.5 at 50 mL/hr. At refeeding risk, supplement thiamine 100 mg x 5-7 days. Monitor potassium, phosphorus, and magnesium 3.RD to follow * Nursing Notes - Charline Deleon RN - 06/26/2022 3:39 AM EDT Second assessment done. No changes noted from initial assessment unless noted in chart. Patient is resting, call light within reach. * Plan of Care - Charline Deleon RN - 06/26/2022 3:39 AM EDT Problem: Patient Care Overview Goal: Plan of Care Review Outcome: Ongoing Goal: Individualization & Mutuality Outcome: Ongoing Goal: Discharge Needs Assessment Outcome: Ongoing * Plan of Care - ARACELY Hernandez - 06/25/2022 3:13 PM EDT Problem: [employer]OR - Dysphagia Goal: PO Trial 2 Description: Patient will accept various trials of liquid and solid consistencies (10 trials of each consistency) with no signs/symptoms of laryngeal penetration/aspiration and no respiratory complications to determine the readiness for diet advancement vs an instrumental swallow assessment, over the course of 2 sessions. Outcome: Ongoing * Plan of Care - Trish Marshall RN - 06/25/2022 12:44 PM EDT Problem: Patient Care Overview Goal: Interdisciplinary Rounds/Family Conf Outcome: Met This Shift Problem: Patient Care Overview Goal: Plan of Care Review Outcome: Ongoing Goal: Individualization & Mutuality Outcome: Ongoing Goal: Discharge Needs Assessment Outcome: Ongoing * Nursing Notes - Aminah Wetzel RN - 06/25/2022 10:27 AM EDT PIV team consulted for lab collection. Labs obtained with ultrasound. SKIP Chambers notified * Plan of Care - Sai Joyce MD - 06/25/2022 10:16 AM EDT Medicine Follow Up Note: Patient seen this AM. Continues to complain of epigastric pain and poor po intake. Says unable to take po pills or food. Physical exam stable, labs other than elevated LFTs stable. Will follow endo and hepatology recs. Order additional labs and follow RUQ US. Possibly has component of esophagitis and drug-induced liver injury. * Certification - Ursula Dominguez MD, MPH - 06/25/2022 6:21 AM EDT I certify that this patient requires inpatient services at this time. I anticipate the expected length of stay will include at least two midnights. Inpatient services are due to the following medicalconcerns persistent nausea, vomiting and abd pain with concern for addisons crisis and transaminitis. Plans for post hospitalization care will be discharge to home. * Nursing Notes - Porsha Rehman RN - 06/25/2022 4:21 AM EDT On admission to [facility], from outside facility a dual RN initial assessment of skin condition was performed by Porsha Rehman RN and Gill Recio RN. Skin Assessment: Skin within defined limits:Yes Anil Score: 18 LDA Added:No Porsha Rehman RN * Plan of Care - Porsha Rehman RN - 06/25/2022 3:40 AM EDT Problem: Patient Care Overview Goal: Plan of Care Review Outcome: Ongoing Problem: Patient Care Overview Goal: Plan of Care Review Outcome: Ongoing * Nursing Notes - Porsha Rehman RN - 06/25/2022 3:40 AM EDT Patient Arrived to the unit Via stretcher. Admitting notified of patient arrival for assessments. Patient Alert and oriented X 3. Oriented to the room and the use of The call light to Call For assistance. Gait unsteady With ambulating Requires assistance while ambulating Due to tremors and Shaking.Educated On Fall precautions And Safety. No s/s of Distress noted. Warm pack given for pain Management For abdomen . No other Concerns noted at this time. Will continue to monitor [facility]* Nursing Notes - Selma Cortés RN - 07/05/2022 2:39 PM EDT Pt discharged home. Discharge paperwork discussed with patient and all questions were answered. IV removed per protocol with catheter intact. [facility] with all personal belongings. [facility]09-13-2022 Note* Plan of Care - Selma Cortés RN - 07/05/2022 1:24 PM EDT Problem: Patient Care Overview Goal: Plan of Care Review 07/05/2022 1324 by Selma Cortés RN Outcome: Adequate for Discharge 07/05/2022 0849 by Selma Cortés RN Outcome: Ongoing Goal: Individualization & Mutuality 07/05/2022 1324 by Selma Cortés RN Outcome: Adequate for Discharge 07/05/2022 0849 by Selma Cortés RN Outcome: Ongoing Goal: Discharge Needs Assessment Outcome: Adequate for Discharge Problem: Nutrition, Imbalanced: Inadequate Oral Intake (Adult) Goal: Identify Related Risk Factors and Signs and Symptoms Description: Related risk factors and signs and symptoms are identified upon initiation of Human Response Clinical Practice Guideline (CPG) 07/05/2022 1324 by Selma Cortés RN Outcome: Adequate for Discharge 07/05/2022 0849 by Selma Cortés RN Outcome: Ongoing Goal: Improved Oral Intake Description: Patient will demonstrate the desired outcomes by discharge/transition of care. 07/05/2022 1324 by Selma Cortés RN Outcome: Adequate for Discharge 07/05/2022 0849 by Selma Cortés RN Outcome: Ongoing Goal: Prevent Further Weight Loss Description: Patient will demonstrate the desired outcomes by discharge/transition of care. Outcome: Adequate for Discharge Problem: Nausea/Vomiting (Adult) Goal: Identify Related Risk Factors and Signs and Symptoms Description: Related risk factors and signs and symptoms are identified upon initiation of Human Response Clinical Practice Guideline (CPG) Outcome: Adequate for Discharge Goal: Symptom Relief Description: Patient will demonstrate the desired outcomes by discharge/transition of care. Outcome: Adequate for Discharge Goal: Adequate Hydration Description: Patient will demonstrate the desired outcomes by discharge/transition of care. Outcome: Adequate for Discharge Problem: Fall/Trauma/Injury Risk (Adult) Goal: Fall/Trauma/Injury Risk: Absence of Trauma/Injury/Falls Description: Patient will demonstrate the desired outcomes. Outcome: Adequate for Discharge Goal: Knowledge of risk factors/behavior modification Description: Knowledge of risk factors/behavior modification for fall/injury prevention Outcome: Adequate for Discharge Problem: Nutrition, Enteral (Adult) Goal: Signs and Symptoms of Listed Potential Problems Will be Absent, Minimized or Managed (Nutrition, Enteral) Description: Signs and symptoms of listed potential problems will be absent, minimized or managed by discharge/transition of care (reference Nutrition, Enteral (Adult) CPG). Outcome: Adequate for Discharge [facility]09-13-2022 Note* Plan of Care - Selma Cortés RN - 07/05/2022 8:50 AM EDT Problem: Patient Care Overview Goal: Plan of Care Review Outcome: Ongoing Goal: Individualization & Mutuality Outcome: Ongoing Problem: Nutrition, Imbalanced: Inadequate Oral Intake (Adult) Goal: Identify Related Risk Factors and Signs and Symptoms Description: Related risk factors and signs and symptoms are identified upon initiation of Human Response Clinical Practice Guideline (CPG) Outcome: Ongoing Goal: Improved Oral Intake Description: Patient will demonstrate the desired outcomes by discharge/transition of care. Outcome: Ongoing [facility]09-13-2022 Note* Nursing Notes - Liv Last RN - 07/05/2022 4:00 AM EDT Second assessment complete, no changes noted at this time in flowsheets. Pt resting in bed, call light within reach. RN will continue to monitor. [facility]09-12-2022 Note* Plan of Care - Vince Ingram DO - 07/04/2022 9:06 PM EDT Brief GI/Hepatology Update: EGD completed today: Impression: - Normal esophagus. - Z-line regular, 36 cm from the incisors. - Bilious gastric fluid. - Normal examined duodenum. - Biopsies were taken with a cold forceps for histology in the gastric body, at the incisura and in the gastric antrum. Recommendations: - Continue supportive care - Advance diet as tolerated - Trend LFTs Vince Ingram DO Division of Gastroenterology, Hepatology, and Nutrition Clinical Fellow PGY-6 Pager: [phone] [facility] Work Phone: [phone]) 164-830709-12-2022 Note* Plan of Care - Liv Last RN - 07/04/2022 8:00 PM EDT Problem: Patient Care Overview Goal: Discharge Needs Assessment Outcome: Ongoing Problem: Nutrition, Imbalanced: Inadequate Oral Intake (Adult) Goal: Improved Oral Intake Description: Patient will demonstrate the desired outcomes by discharge/transition of care. Outcome: Ongoing Problem: Nausea/Vomiting (Adult) Goal: Adequate Hydration Description: Patient will demonstrate the desired outcomes by discharge/transition of care. Outcome: Ongoing Problem: Fall/Trauma/Injury Risk (Adult) Goal: Knowledge of risk factors/behavior modification Description: Knowledge of risk factors/behavior modification for fall/injury prevention Outcome: Ongoing Problem: Nutrition, Enteral (Adult) Goal: Signs and Symptoms of Listed Potential Problems Will be Absent, Minimized or Managed (Nutrition, Enteral) Description: Signs and symptoms of listed potential problems will be absent, minimized or managed by discharge/transition of care (reference Nutrition, Enteral (Adult) CPG). Outcome: Ongoing [facility]09-12-2022 Note* Nursing Notes - Porsha Moon RN - 07/04/2022 4:22 PM EDT Report called to SKIP Hahn [facility]09-12-2022 Note* Nursing Notes - Jeanette Dial RN - 07/04/2022 4:21 PM EDT Anticipated Discharge Plan: Expected discharge date: 07/05/2022 Anticipated Discharge Disposition: Home (with outpatient PT/OT in her local area) Potential Barriers: Pain control, pending GI final recommendations Family expected to provide transportation. 07/01/22 1624 Patient Coping/Stress Concerns Patient/Family In Agreement With Plan yes Final Discharge Planning Discharge Disposition Home CM/SW AVS Portion Completed Yes Transport Request Mode of Transfer private vehicle Accompanied By family member Signed, Raj Rivers.S.N., R.N. Clinical [employer] [facility]09-12-2022 Note* Nursing Notes - Selma Cortés RN - 07/04/2022 3:15 PM EDT Second assessment complete. No changes from AM assessment. Pt denies any needs at this time. Pt is resting with call light in reach. Selma Cortés RN [facility]09-12-2022 History of Present illness Narrative* Kate Begum, DO - 07/04/2022 11:22 AM EDT [facility] Medicine Progress Note Patient: Sonia Szymanski, : 1995, Impression / Plan 27 y.o. 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 Inability to tolerate po due to abdominal discomfort, improving Concern for undernutrition, risk for malnutrition History of esophagitis, severe with schatzki's ring ddx includes cyclic vomiting (previous MJ use), esophagitis (most likely) - IV PPI BID - D5 1/2 NS at 50cc/h - pain control with PO oxycodone and IV dilaudid. - zofran and phenergan prn, scopolamine patch -pain has not resolved. NPO, GI to re-evaluate for potential EGD Transaminitis, hepatocellular -resolved. 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 disease with subsequent post surgical hypothyroidism History of hypoglycemia - endocrine followed - not consistent with adrenal crisis as abd pain didn't respond to hydrocortisone - taper hydrocortisone to home dose (will be on home dose starting 06/29) - continue levothyroxine 137.5mcg daily - continue acarbose Mixed anxiety/depression - buspar and fluoxetine Seizure disorder - replace depakote ER by depakene through NG, 250mg TID Possible SLE - plaquenil BMI: Obesity - Follow with PCP for dietary and lifestyle modifications DVT prophylaxis with lovenox Anticipated Disposition: to be determined DC barriers: unable to take PO Code status is Full Code Interval History / Subjective Persistent abdominal pain which not gotten any better throughout the week. Awaiting GI evaluation Objective Temp: [96 F (35.6 C)-97.6 F (36.4 C)] 97.6 F (36.4 C) Pulse (Heart Rate): [57-96] 57 Resp Rate: [14] 14 BP: (92-102)/(52-67) 102/67 O2 Sat (%): [95 %-98 %] 97 % Physical Exam Skin: Findings: Erythema: Gen: Chronically ill appearing Resp: CTA & P bilat, normal effort Cardio: RRR, normal S1, S2, trace HECTOR GI: NT/ND, not too tender on distracted exam, soft, tolerating TF without retching Psych: Ox3, appropriate affect and cognition Neuro: less shaky when moving around Data Review WBC/Hgb/Hct/Plts: 12.00/11.3/35.1/302 (07/04 426) Na/K+/Phos/Mg/Ca: 137/4.1/4.6/2.0/9.0 (07/04 426) Bun/Creat/Cl/CO2/Glucose: 8/0.62/103/28/77 (07/04 426) * Georgia Damon, PT - 07/04/2022 9:32 AM EDTSummary: Acute Physical Therapy Evaluation and Discharge Acute Physical Therapy Evaluation and Discharge Prior to Admission [facility] score(s): PRIOR LEVEL AM-PAC Mobility Raw Score: 24 Current AM-PAC score(s): CURRENT AM-PAC Mobility Raw Score: 24 Based on the above AM-PAC score(s) and PT clinical judgment, patient is a good candidate for discharge to Home with Outpatient Rehab Services Barriers to discharge home: Lack of appropriate DME Mobility equipment available at home: none used ADL equipment available at home: none Equipment needed for discharge: shower chair, 2 wheeled walker Current therapy frequency recommendation in acute: Therapy Frequency: no therapy warranted Precautions and Weightbearing Status: Existing Precautions/Restrictions: fall, NPO No critical lines at this time Patient Safety Communication Prior to Visit: Nursing RN mobility rec: up to room chair for meals; ok to ambulate in zafar with nursing supervision using FWW BRPs: yes with staff supervision Respiratory Status O2 Device: room air Subjective: Patient reports that she ambulated to the shower with nursing staff yesterday using the FWW and wasvery fatigued afterward. Patient agreeable to therapy session. Past Medical History: Diagnosis Date Adrenal insufficiency (Wabasso's disease) Migraine Postoperative hypothyroidism Past Surgical History: Procedure Laterality Date CHOLECYSTECTOMY LAPAROSCOPIC 06/09/2021 APPENDECTOMY 12/28/2020 HYSTERECTOMY 08/13/2020 THYROIDECTOMY 2016 Pain: General Pain Documentation (Adult, OB, Peds) Presence of Pain: complains of pain/discomfort Pain Location: abdomen DVPRS (Defense and Veterans Pain Rating Scale) DVPRS: Rest: 6- moderate pain DVPRS: Activity: 6- moderate pain Home Setting Residence: House Lives With: spouse, dependent child(zach) ( and 4y/o son) First floor setup: tub shower Second floor setup: bedroom Number of stairs to enter home: 3 Number of stairs in home: flight to second floor Stair Railings at Home: entry - no rail, interior - with rail Mobility Equipment Available: none used ADL Equipment Available: none Previous Level of Function Prior level ADL Overview: Independent with all ADLs Bed Mobility/Transfers: independent Ambulation Skills: independent Assistive Device: none used Level of Ambulation: community Objective/Observation: Vitals/Vitals Responses to Treatment: Vitals not taken. No adverse events noted with mobility. Cognition Overall Cognitive Status: Within Functional Limits Arousal/Alertness: Appropriate responses to stimuli Orientation Level: Oriented X4 Following Commands: Follows all commands and directions without difficulty Safety Judgment: Good awareness of safety precautions Awareness of Errors: Good awareness of errors made Deficits: Fully aware of deficits Attention Span: Appears intact Memory: Appears intact Problem Solving: Able to problem solve independently Cognition Comments: Pleasent and cooperative. Good safety awareness. Vision Screen Currently wearing corrective lenses: No Visual Impairments Observed?: No Speech Speech: no gross deficits noted Hearing Hearing: no gross deficits noted Extremity Assessments: RLE Assessment RLE Assessment: Within Functional Limits LLE Assessment LLE Assessment: Within Functional Limits Sensation Overall Sensation: Intact Sensation Comments: Reports intermittent n/t in legs based on positioning. Mobility Assessment: Supine to Sit Mobility [place] Level: Supine->Sit: modified independence Bed Features/Set-up: Supine->Sit: Head of bed elevated Sit to Supine Mobility [place] Level: Sit->Supine: modified independence Bed Features/Set-up: Sit->Supine: Head of bed elevated Balance: Sitting Balance Static Sitting-Level of Assistance: Independent Dynamic Sitting-Level of Assistance: Independent Standing Balance Static Standing-Level of Assistance: Independent Dynamic Standing-Level of Assistance: Supervision, Modified independent Transfer Assessment: Sit to Stand Transfer [place] Level: Sit->Stand: modified independence Skilled Intervention/Details: Sit->Stand: Utilizes bed rail or bathroom counter for UE support. Stand to Sit Transfer [place] Level: Stand->Sit: modified independence Gait/Functional Mobility: Gait Assessment [place] Level: Gait: modified independence Assistive Device: Gait: (IV pole) Gait Distance (feet): 10, 50 Gait Deviations Identified: decreased alex, decreased gait speed, decreased stride length, narrow base of support Gait Skilled Rationale: verbal Skilled Intervention/Details - Gait: Cues for self pacing activity and minitoring for an increase in symptoms. Patient displayed good ability to self pace activity. Stairs: Stairs Assessment [place] Level: Stair Negotiation: not tested Skilled Intervention/Details - Stairs: Able to demo modified independence and display adequate strength/endurance to complete a flight of stairs based on standing marching activity with unilateral UEsupport. Education provided on caregiver guarding/assist for safety in home environment. Outcome Score(s): CURRENT [facility] Basic Mobility Inpatient Short Form Turning over in bed: 4 - No Assistance Sitting/standing from chair: 4 - No Assistance Moving from lying on back to sittin - No Assistance Moving to and from bed to chair: 4 - No Assistance Walk in hospital room: 4 - No Assistance Climbing 3-5 steps with a railin - No Assistance CURRENT [facility] Mobility Raw Score: 24 CURRENT [facility] Mobility Functional Limitation/Modifier: 0.00% Currently Impaired in Basic Mobility - Interventions: Intervention 1 Intervention Name: Energy conservation, RPE scale, and activity modifcation Details: Education provided on use of RPE scale in determining proper effort with mobility with patient able to demo good understanding. Discussed home energy conservation techniques including strategic chair placement and need for seated rest breaks. Also discussed utilizing activity intervals with low effort in order to buidl functional endurance. Assessment & Plan: Patient was admitted for concern for addisons crisis and new transaminitis and seen for therapy evaluation related to decreased safe functional mobility as well as discharge planning and any appropriate education. The patient is independent at baseline with mobility but reports increased fatigue and generalized weakness over the last 2 weeks. She reports her works outside the home but canprovide PRN assist when home. Today the patient displayed good understanding of safety and was able to self determine a safe ambulation distance. Session focused on education regarding activity modification given increased fatigue with mobility. Recommending patient utilize FWW for energy efficiency with ambulation. Patient able to demo adequate functional mobility for safe home going with proper DME and voiced feeling comfortable with going home based on her current symptoms. Expect patient to return to functional baselinewith further medical management while hospitalized but recommending outpatient PT to address and lingering functional deficits. Will discharge from acute care PT at this time with patient to continueto mobilize with nursing staff. Current clinical presentation is Stable - unchanging or predictable (Low). Plan for next session: Discharge from skilled acute PT Goal: Patient will verbalize understanding of risks of bedrest and importance of increasing activity. MET Goal: Patient will demonstrate safe functional mobility with staff assistance in hospital environment. MET Goal: Patient will demonstrate adequate functional mobility to safely discharge to next level of care. MET PT treatment consisted of Gait/Stair Training and Home Management Retraining to work and progress towards above goal(s). Evaluating Therapist: Georgia Damon PT Additional Details: Co-evaluation/co-treatment performed?: No simultaneous skilled care performed I used facemask, protective eye shield, and gloves in today's patient interaction. Evaluation Complexity Components History: High (3 personal factors and/or comorbidities) Body Systems Review: Moderate (Addressing a total of 3 or more elements) Clinical Presentation: Stable - unchanging or predictable (Low) Clinical Decision Making: Low Time In: 0837 Time Out: 0857 Total Visit Time: 20 minutes Total Treatment Time (skilled, billable minutes): 20 minutes Patient location at end of session: bed with head of bed elevated Alarms on at end of session: none Needs in reach. Upon discontinuation of Acute Care Physical Therapy Services or patient discharge from the hospitalthis note represents the current Physical Therapy Discharge Summary. * Kate Begum DO - 07/03/2022 12:21 PM EDT [facility] Medicine Progress Note Patient: Sonia Szymanski, : 1995, Impression / Plan 27 y.o. 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 Inability to tolerate po due to abdominal discomfort, improving Concern for undernutrition, risk for malnutrition History of esophagitis, severe with schatzki's ring ddx includes cyclic vomiting (previous MJ use), esophagitis (most likely) - IV PPI BID - regular diet + Carafate - D5 1/2 NS at 50cc/h - pain control with PO oxycodone and IV dilaudid. - zofran and phenergan prn, scopolamine patch Transaminitis, hepatocellular -improving with symptomatic treatment of her nausea and emesis, seems like it might have been secondary. However, workup is ongoing. 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 disease with subsequent post surgical hypothyroidism History of hypoglycemia - endocrine consulted - not consistent with adrenal crisis as abd pain didn't respond to hydrocortisone - taper hydrocortisone to home dose (will be on home dose starting 06/29) - continue levothyroxine 137.5mcg daily - continue acarbose Mixed anxiety/depression - buspar and fluoxetine through NG Seizure disorder - replace depakote ER by depakene through NG, 250mg TID Possible SLE - plaquenil via NG tube # hypokalemia - Replete PRN and monitor BMI: Obesity - Follow with PCP for dietary and lifestyle modifications DVT prophylaxis with lovenox Anticipated Disposition: to be determined DC barriers: able to tolerate PO and po meds; when able to do that, likely can discharge home. She wants outpatient PT/OT. Code status is Full Code Interval History / Subjective Complaining of abdominal pain. No improvement Objective Temp: [97 F (36.1 C)-98.5 F (36.9 C)] 97 F (36.1 C) Pulse (Heart Rate): [70-77] 70 Resp Rate: [13-16] 14 BP: (85-107)/(51-65) 96/55 O2 Sat (%): [94 %-98 %] 97 % Physical Exam Skin: Findings: Erythema: Gen: Chronically ill appearing Resp: CTA & P bilat, normal effort Cardio: RRR, normal S1, S2, trace HECOTR GI: NT/ND, not too tender on distracted exam, soft, tolerating TF without retching Psych: Ox3, appropriate affect and cognition Neuro: less shaky when moving around Data Review Na/K+/Phos/Mg/Ca: 137/3.8/4.4/1.7/8.7 (07/03 300) Bun/Creat/Cl/CO2/Glucose: 9/0.63/102/27/98 (07/03 300) * Kate Begum DO - 07/02/2022 12:24 PM EDT Hospital Medicine Progress Note Patient: Sonia Szymanski, : 1995, Impression / Plan 27 y.o. 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 Inability to tolerate po due to abdominal discomfort, improving Concern for undernutrition, risk for malnutrition History of esophagitis, severe with schatzki's ring ddx includes cyclic vomiting (previous MJ use), esophagitis (most likely) - IV PPI BID - regular diet + Carafate - D5 1/2 NS at 50cc/h - pain control with PO oxycodone and IV dilaudid. - zofran and phenergan prn, scopolamine patch Transaminitis, hepatocellular -improving with symptomatic treatment of her nausea and emesis, seems like it might have been secondary. However, workup is ongoing. 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 disease with subsequent post surgical hypothyroidism History of hypoglycemia - endocrine consulted - not consistent with adrenal crisis as abd pain didn't respond to hydrocortisone - taper hydrocortisone to home dose (will be on home dose starting 06/29) - continue levothyroxine 137.5mcg daily - continue acarbose Mixed anxiety/depression - buspar and fluoxetine through NG Seizure disorder - replace depakote ER by depakene through NG, 250mg TID Possible SLE - plaquenil via NG tube # hypokalemia - Replete PRN and monitor BMI: Obesity - Follow with PCP for dietary and lifestyle modifications DVT prophylaxis with lovenox Anticipated Disposition: to be determined DC barriers: able to tolerate PO and po meds; when able to do that, likely can discharge home. She wants outpatient PT/OT. Code status is Full Code Interval History / Subjective Complaining of abdominal pain which has not improved Objective Temp: [98 F (36.7 C)-98.4 F (36.9 C)] 98 F (36.7 C) Pulse (Heart Rate): [68-73] 68 Resp Rate: [12-16] 13 BP: (104-107)/(56-65) 104/61 O2 Sat (%): [94 %-97 %] 97 % Physical Exam Skin: Findings: Erythema: Gen: Chronically ill appearing Resp: CTA & P bilat, normal effort Cardio: RRR, normal S1, S2, trace HECTOR GI: NT/ND, not too tender on distracted exam, soft, tolerating TF without retching Psych: Ox3, appropriate affect and cognition Neuro: less shaky when moving around Data Review WBC/Hgb/Hct/Plts: --/--/--/313 (07/02 529) Na/K+/Phos/Mg/Ca: 137/4.1/4.8/2.0/8.7 (07/02 529) Bun/Creat/Cl/CO2/Glucose: 8/0.71/102/26/86 (07/02 529) * Margaret Jorge MD - 07/01/2022 3:17 PM EDT GASTROENTEROLOGY Y CONSULT PROGRESS NOTE Subjective/Interval Events: Reports odynophagia improved since NGT removed. Denied odynophagia prior to NGT placement. Still having some abdominal pain with PO intake, although improved. LFTs have normalized. Objective: Vitals: 07/01/22 1429 BP: 106/56 Pulse: 73 Resp: 16 Temp: 98.1 F (36.7 C) O2 Device: room air (07/01/22 1429) HEENT: PER, MMM, OP clear. No scleral icterus. Neck: Neck supple without lymphandenopathy. Respiratory: CTA bilaterally, no wheezes/crackles Cardiovascular: RRR, no m/r/g Abdominal: Soft. + BS. ND. NT. No guarding or rebound. No ascites present Neurological: Alert and oriented to person, place, and time. No gross motor deficit. Extremities: WWP 2+ throughout, no edema Body mass index is 30.17 kg/m . Medications: acarbose 25 mg Per NG tube TID w/meals busPIRone 5 mg Per NG tube TID enoxaparin 40 mg Subcutaneous Daily FLUoxetine 40 mg Per NG tube Daily gabapentin 100 mg Per NG tube TID hydrocortisone 10 mg Oral 2 times per day And hydrocortisone 5 mg Oral QHS hydroxychloroquine 200 mg Per NG tube BID levothyroxine 137.5 mcg Per NG tube Before BKF pantoprazole 40 mg Intravenous BID scopolamine 1 patch Transdermal Q72H thiamine 100 mg Per NG tube Daily valproate 250 mg Per NG tube TID Labs: All relevant labs were reviewed. WBC/Hgb/Hct/Plts: 12.41/11.5/35.2/284 (07/01 521) Na/K+/Phos/Mg/Ca: 137/3.8/4.8/2.2/8.4 (07/01 521) Bun/Creat/Cl/CO2/Glucose: 8/0.64/102/28/118 (07/01 521) Lab Results Component Value Date ALT 44 07/01/2022 AST 12 07/01/2022 ALKPHOS 59 07/01/2022 BILITOTAL 0.6 07/01/2022 BILIDIRECT 0.1 07/01/2022 INR 1.2 (H) 06/26/2022 Imaging: All relevant imaging and procedures were reviewed. ASSESSMENT AND PLAN: Sonia Szymanski is a 27 y.o. 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 We are consulted for evaluation ofabdominal pain and transaminitis. LFTs have normalized, which correspond with the diagnosis of DILIfrom recent Abx use. Elevation of ASMA unlikely to be of clinical significance - autoimmune hepatitis should not improve this rapidly without intervention. IMPRESSION 1. Elevated LFTs 2. RUQ Abdominal Pain 3. 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 Grave's disease s/p total thyroidectomy w/ post-operative hypothyroidism 5. Seizure disorder on AED ASSESSMENT/RECOMMENDATIONS: - Recommend supportive care, PPI BID, and trial of GI cocktail/liquid carafate for abdominal pain - no indication for endoscopic evaluation at this time. If patient fails to be able to advance dietover weekend, please reach back out to our team to consider inpatient EGD to rule out PUD. This consult was discussed with Dr. Woods, the attending physician. If you have any questions or need any further information, please feel free to contact our consult team (N Consult team). Thank you for this interesting consult and allowing us to participate in the care of Sonia Szymanski GI will sign off. Please call back if any additional concerns; no need for new consult. Margaret Jorge MD Division of Gastroenterology, Hepatology, and Nutrition Clinical Fellow PGY-5 Pager: [phone] For urgent/stat calls 5pm to 7am or all day on the weekend, please page the on- call GI fellow (not the first call GI fellow) "[facility] Consult Serv Gastroenterology" on webexchange. Associated attestation - Thomas Woods MD - 07/01/2022 8:03 PM EDT Attending Note: I saw and personally examined the patient today, 09/09/22, with the resident/fellow. I discussed the findings and therapeutic plan with the resident/fellow. I agree with the history, physical examination, and medical decisions as outlined. I personally reviewed previous clinical lab testing, radiologic tests, diagnostic testing (including prior endoscopies and surgical procedures) listed in the resident/fellow's note or as described below. Sonia Szymanski is a 27 y.o. 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 LFts have normalized and would expect any liver inflammation/capsule swelling to be improved. Pt with removal of nasoenteric feeding tube which was irritating throat. Continue supportive care and encourage PO intake with antinausea medication use. No endoscopic evaluation necessary at this time. Thank you for your consultation. Please feel free to reach out to myself or any team members with questions regarding our recommendations. Thomas Woods MD Division of Gastroenterology, Hepatology, and Nutrition * Kate Begum, DO - 07/01/2022 2:25 PM EDT [facility] Medicine Progress Note Patient: Sonia Szymanski, : 1995, Impression / Plan 27 y.o. 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 Inability to tolerate po due to abdominal discomfort, improving Concern for undernutrition, risk for malnutrition History of esophagitis, severe with schatzki's ring ddx includes cyclic vomiting (previous MJ use), esophagitis (most likely) - IV PPI BID - regular diet - D5 1/2 NS at 50cc/h - CT AP read is available in care everywhere - pain control with PO oxycodone and IV dilaudid. Carefully monitor respiratory status, vitals, andsedation while receiving IV narcotics given high risk for respiratory depression. - daily BMP - zofran and phenergan prn, scopolamine patch -DC NG, trial PO diet Transaminitis, hepatocellular Unclear etiology, but as improving with symptomatic treatment of her nausea and emesis, seems like it might have been secondary. However, workup is ongoing. 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 disease with subsequent post surgical hypothyroidism History of hypoglycemia - endocrine consulted - not consistent with adrenal crisis as abd pain didn't respond to hydrocortisone - taper hydrocortisone to home dose (will be on home dose starting 06/29) - continue levothyroxine 137.5mcg daily - continue acarbose Mixed anxiety/depression - buspar and fluoxetine through NG Seizure disorder - replace depakote ER by depakene through NG, 250mg TID Possible SLE - plaquenil via NG tube # hypokalemia - Replete PRN and monitor BMI: Obesity - Follow with PCP for dietary and lifestyle modifications DVT prophylaxis with lovenox Anticipated Disposition: to be determined Dc barriers: able to tolerate PO and po meds; when able to do that, likely can discharge home. She wants outpatient PT/OT. Code status is Full Code Interval History / Subjective Would like to have NG removed and trial PO intake Objective Temp: [97.8 F (36.6 C)-98.1 F (36.7 C)] 98 F (36.7 C) Pulse (Heart Rate): [64-72] 64 Resp Rate: [14-16] 16 BP: (112-118)/(71-79) 112/79 O2 Sat (%): [95 %-97 %] 95 % Physical Exam Skin: Findings: Erythema: Gen: Chronically ill appearing Resp: CTA & P bilat, normal effort Cardio: RRR, normal S1, S2, trace HECTOR GI: NT/ND, not too tender on distracted exam, soft, tolerating TF without retching Psych: Ox3, appropriate affect and cognition Neuro: less shaky when moving around Data Review WBC/Hgb/Hct/Plts: 12.41/11.5/35.2/284 (07/01 0521) Na/K+/Phos/Mg/Ca: 137/3.8/4.8/2.2/8.4 (07/01 521) Bun/Creat/Cl/CO2/Glucose: 8/0.64/102/28/118 (07/01 521) * Jewell Vazquez RD - 07/01/2022 11:53 AM EDT NUTRITION FOLLOW-UP NUTRITION RECOMMENDATIONS AND PLAN OF CARE 1.Tolerate Regular diet w/50 - 75% intake of meals. Provide Ensure Plus high proteinTID (350 calories and 20 g protein). 2. Receiving TF Jevity 1.5 at 50 mL/hr. For nutrition support. This provides 1800 Kcals/d and 77 gms Pro/d w/912 ml water/d. Additional water indicated for hydration needs. -DC NG, trial PO diet (perM.D. today) 3. At refeeding risk, supplement thiamine 100 mg x 5-7 days. Monitor potassium, phosphorus, and magnesium 4 Monitor wt status. 5 Glycemic control. 6 Follow and monitor po intake, tube feeding, wt, labs, skin and bowel function. 27 y.o. 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, seizure disorder, graves disease s/p thyroidectomy and hypothyroidism who presented to [facility] ED with dizziness, n/v and abdominal pain transferred here for further management with concern for addisons crisis and new transaminitis Past History Past Medical History: Diagnosis Date Adrenal insufficiency (Wabasso's disease) Migraine Postoperative hypothyroidism Nutrition History Visited pt. Reports improved appetite/intake. Requesting tube feeding be removed for improved po diet intake. Is taking Regular diet and supplements. Receiving ensure plus high protein TID for additional Kcals and protein with intake. Also receiving Tube feeding - Jevity 1.5 at 50 ml/hr for nutrition support (NGT). Current Diet Orders Procedures DIET REGULAR Standing Status: Standing Number of Occurrences: 1 Height/Weight Evaluation Ht: 5'5" Wt: 181 lbs 4.8 oz IBW: 125 lbs +/-10% %IBW: 145 BMI: Body mass index is 30.17 kg/m . Weight History: Wt Readings from Last 10 Encounters: 06/25/22 82.2 kg (181 lb 4.8 oz) Scheduled Meds Include: acarbose 25 mg Per NG tube TID w/meals busPIRone 5 mg Per NG tube TID enoxaparin 40 mg Subcutaneous Daily FLUoxetine 40 mg Per NG tube Daily gabapentin 100 mg Per NG tube TID hydrocortisone 10 mg Oral 2 times per day And hydrocortisone 5 mg Oral QHS hydroxychloroquine 200 mg Per NG tube BID levothyroxine 137.5 mcg Per NG tube Before BKF pantoprazole 40 mg Intravenous BID scopolamine 1 patch Transdermal Q72H thiamine 100 mg Per NG tube Daily valproate 250 mg Per NG tube TID Continuous Infusions: dextrose 5% and sodium chloride 0.9% 50 mL/hr at 07/01/22 0319 Jevity 1.5 William/Fiber 50 mL/hr (07/01/22 1112) Labs reviewed: Lab Results Component Value Date WBC 12.41 (H) 07/01/2022 SODIUM 137 07/01/2022 POTASSIUM 3.8 07/01/2022 CHLORIDE 102 07/01/2022 CO2 28 07/01/2022 BUN 8 07/01/2022 CREATSERUM 0.64 07/01/2022 CALCIUM 8.4 (L) 07/01/2022 PHOSPHORUS 4.8 (H) 07/01/2022 MAGNESIUM 2.2 07/01/2022 GLUCOSE 118 (H) 07/01/2022 Lab Results Component Value Date ALT 44 07/01/2022 AST 12 07/01/2022 LDH 138 06/26/2022 ALKPHOS 59 07/01/2022 BILITOTAL 0.6 07/01/2022 BILIDIRECT 0.1 07/01/2022 Lab Results Component Value Date ALBUMIN 3.5 07/01/2022 Fluid Status Since Admission: +16,082.6, trace HECTOR P.O. Intake: 0% Tube feeding intake (Jevity 1.5) average intake of past 3 days is 1611 ml/d Goal rate is 1200 ml/d (134% goal rate) May be inaccurate recordings. No increased residuals note Tube feeding on hold to trial PO diet. Last emesis reported 06/26 GI: Last stool 06/29 NGT - discontinued per M.D. Imaging 06/25- Limited field of view radiograph of the upper abdomen was obtained to evaluate enterictube positioning. The NG tube is located with its tip and side-port in the gastric body. Bowel gas pattern is non-obstructive. No gross free air. Skin: Anil- 20 Estimated Nutrition Needs Wt used: 56.8 kg - IBW EEN (kcal/d): 0644-2966 (25-30 kcal/kg IBW) EPN (g pro/d): 68-85 (1.2-1.5 g/kg IBW Fluid needs per medical team Malnutrition Diagnosis: Unable to determine degree of malnutrition at this time due to unable to obtain diet/wt HX per pt. based on the AND/ASPEN Malnutrition Criteria 2012 Pt at risk of protein calorie malnutrition d/t acute and chronic conditions, tube feeding nutritionsupport and potential for nutritions status decline. Jewell Gamez pager [phone] * ARACELY Boston - 06/30/2022 1:16 PM EDT Acute Care Speech Language Pathology Swallow Treatment Diet Recommendations: Recommended Method of Nutrition: PO Recommended Diet Grade: regular Recommended Liquid Consistency: liquid- thin (IDDSI 0) Medications: (as tolerated) Swallow Strategies: Alternate solids/liquids Type of Cues/Supervision: none Assistance: independent Best mode of Communication: verba speech Communication Strategies: n/a Discharge Recommendations: Based on the below outcome measures/assessment score(s), FOIS = 7, and AIRCRAFT CLEANING SUPERVISOR clinical judgment, discharge destination recommendation is: Home, no AIRCRAFT CLEANING SUPERVISOR services warranted upon discharge. Acute AIRCRAFT CLEANING SUPERVISOR Outcomes Tracking Communicate basic wants and needs?: yes Demo insight/appreciation of deficits?: yes Complete basic problem solving?: yes Current therapy frequency recommendation in acute: Swallow Therapy Frequency: no therapy warranted Clinical Impression: Sonia Szymanski presents with presumed adequate oropharyngeal swallow function as pt demonstrated functional mastication of regular texture solids and complete oral clearance with no overt clinical signs/symptoms of penetration/aspiration across all consistencies. Pt noted to have discomfort w/feeding tube during swallow however this did not appear to impact swallow function. Recommend regular with thin liquids. AIRCRAFT CLEANING SUPERVISOR will sign off. Subjective: Pt awake and agreeable to PO intake. RN's reported pt wanted to try chocolate milk, this AIRCRAFT CLEANING SUPERVISOR found chocolate milk on another floor and brought to pt. Pt expressed eagerness to try, reported that it tastes different than chocolate milk as she remembers. Pain: General Pain Documentation (Adult, OB, Peds) Presence of Pain: complains of pain/discomfort Pain Location: throat (pt states she feels NG tube with swallow) Pain Location: throat (pt states she feels NG tube with swallow) Respiratory Status: O2 Sat (%): 96 % (06/30 801) O2 Device: room air (06/30 801) Acute AIRCRAFT CLEANING SUPERVISOR Goals Plan of Care by ARACELY Boston at 06/30/2022 1:13 PM Version 1 of 1 Problem: AIRCRAFT CLEANING SUPERVISOR - Dysphagia Goal: PO Trial 2 Description: Patient will accept various trials of liquid and solid consistencies (10 trials of each consistency) with no signs/symptoms of laryngeal penetration/aspiration and no respiratory complications to determine the readiness for diet advancement vs an instrumental swallow assessment, over the course of 2 sessions. Outcome: Completed Note: Pt consumed 3 trials regular solid (hard cookie) w/functional mastication and complete oral clearance and x6 trial thin liquid via straw (chocolate milk) with no overt s/sx of penetration/aspiration. Pt endorsed discomfort with swallow, reporting she can feel the tube as she swallows, howeverthis does not appear to impact swallow function or safety. Patient Instruction/Education this session: diet texture, AIRCRAFT CLEANING SUPERVISOR role, discharge plan Plan for next session: n/a AIRCRAFT CLEANING SUPERVISOR Outcomes: FOIS = 7 I was assisted by no other staff for today's session. and I used facemask, protective eye shield, and gloves in today's patient interaction. Speech Language Pathologist: ARACELY Boston Time In: 1200 Time Out: 1218 Total Visit Time: 18 minutes Total Treatment Time (skilled, billable minutes): 13 minutes Elisa Wright M.A., [facility]-AIRCRAFT CLEANING SUPERVISOR License#: [id number] Can be reached at Epic secure chat this day only Patient location at end of session: bed with head of bed elevated Alarms on at end of session: unchanged by AIRCRAFT CLEANING SUPERVISOR Needs in reach. yes Upon discontinuation of Acute Care Speech Therapy Services or patient discharge from the hospital this note represents the current Speech Therapy Discharge Summary * Kate Begum, DO - 06/30/2022 12:01 PM EDT [facility] Medicine Progress Note Patient: Sonia Szymanski, : 1995, Impression / Plan 27 y.o. 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 Inability to tolerate po due to abdominal discomfort, improving Concern for undernutrition, risk for malnutrition History of esophagitis, severe with schatzki's ring ddx includes cyclic vomiting (previous MJ use), esophagitis (most likely) - able to tolerate TF 06/27 at goal - IV PPI BID - trial GI cocktail - GI modified diet, advance as tolerated - D5 1/2 NS at 50cc/h while not taking in PO fluids - CT AP read is available in care everywhere - pain control with PO oxycodone and IV dilaudid. Carefully monitor respiratory status, vitals, andsedation while receiving IV narcotics given high risk for respiratory depression. - daily BMP - zofran and phenergan prn, scopolamine patch Transaminitis, hepatocellular Unclear etiology, but as improving with symptomatic treatment of her nausea and emesis, seems like it might have been secondary. However, workup is ongoing. 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 disease with subsequent post surgical hypothyroidism History of hypoglycemia - endocrine consulted - not consistent with adrenal crisis as abd pain didn't respond to hydrocortisone - taper hydrocortisone to home dose (will be on home dose starting 06/29) - continue levothyroxine 137.5mcg daily - continue acarbose - dextrose containing fluids as above Mixed anxiety/depression - buspar and fluoxetine through NG Seizure disorder - replace depakote ER by depakene through NG, 250mg TID Possible SLE - plaquenil via NG tube # Electrolyte Abnormalities - Replete electrolytes PRN and monitor BMI: Obesity - Follow with PCP for dietary and lifestyle modifications DVT prophylaxis with lovenox Anticipated Disposition: to be determined Dc barriers: able to tolerate PO and po meds; when able to do that, likely can discharge home. She wants outpatient PT/OT. Code status is Full Code Interval History / Subjective Minimal po intake but overall feels better then admission Objective Temp: [97.7 F (36.5 C)-98.2 F (36.8 C)] 97.9 F (36.6 C) Pulse (Heart Rate): [65-72] 72 Resp Rate: [14-18] 14 BP: (99-108)/(57-65) 108/65 O2 Sat (%): [95 %-97 %] 96 % Physical Exam Skin: Findings: Erythema: Gen: Chronically ill appearing Resp: CTA & P bilat, normal effort Cardio: RRR, normal S1, S2, trace HECTOR GI: NT/ND, not too tender on distracted exam, soft, tolerating TF without retching Psych: Ox3, appropriate affect and cognition Neuro: less shaky when moving around Data Review Na/K+/Phos/Mg/Ca: 141/3.8/4.1/2.2/8.5 (06/30 252) Bun/Creat/Cl/CO2/Glucose: 7/0.68/101/32/89 (06/30 252) * Jeanette Dial RN - 06/29/2022 4:12 PM EDT Anticipated Discharge Plan: Expected discharge date: 07/01/2022 or 07/02/2022 Anticipated Discharge Disposition: Home with outpatient PT/OT Potential Barriers: Pending ability to tolerate po diet and po meds Signed, Jeanette Lay B.S.N., R.N. Clinical Chute Builder * Patsy Lua MD - 06/29/2022 1:56 PM EDT [facility] Medicine Progress Note Patient: Sonia Szymanski, : 1995, Impression / Plan Sonia Szymanski is a 27 y.o. 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 My leading thought is that she might have had a flare of esophagitis that led to nausea/vomiting, which led to nonspecific transaminitis. Her ability to tolerate TF suggests that perhaps bypass the esophagus to allow healing might support that as the area of concern. She is able to tolerate small amounts as of 06/28 by mouth. Inability to tolerate po due to abdominal discomfort, improving Concern for undernutrition, risk for malnutrition History of esophagitis, severe with schatzki's ring ddx includes cyclic vomiting (previous MJ use), esophagitis (most likely) - able to tolerate TF 06/27 at goal - IV PPI BID - trial GI cocktail - GI modified diet, advance as tolerated - D5 1/2 NS at 50cc/h while not taking in PO fluids (avoid overloading her stomach with free water flushes with initiation of TF) - CT AP read is available in care everywhere - pain control with PO oxycodone and IV dilaudid. Carefully monitor respiratory status, vitals, andsedation while receiving IV narcotics given high risk for respiratory depression. - daily BMP - zofran and phenergan prn, scopolamine patch Transaminitis, hepatocellular Unclear etiology, but as improving with symptomatic treatment of her nausea and emesis, seems like it might have been secondary. However, workup is ongoing. 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 Graves disease with subsequent post surgical hypothyroidism History of hypoglycemia - endocrine consulted - not consistent with adrenal crisis as abd pain didn't respond to hydrocortisone - taper hydrocortisone to home dose (will be on home dose starting 06/29) - continue levothyroxine 137.5mcg daily - continue acarbose - dextrose containing fluids as above Mixed anxiety/depression - buspar and fluoxetine through NG Seizure disorder - replace depakote ER by depakene through NG, 250mg TID Possible SLE - plaquenil via NG tube # Electrolyte Abnormalities - Replete electrolytes PRN and monitor BMI: Obesity - Follow with PCP for dietary and lifestyle modifications DVT prophylaxis with lovenox Anticipated Disposition: home, possibly 07/01/2022 depending on progress Dc barriers: able to tolerate PO and po meds; when able to do that, likely can discharge home. She wants outpatient PT/OT. Code status is Full Code Interval History / Subjective Was able to drink some apple juice but it tasted like vinegar. However, she was able to tolerate itand also tolerate some ensure today. Feeling better, still some pain. Was able to walk to the bathroom yesterday with a walker, which was a significant improvement. Objective Temp: [97.9 F (36.6 C)-98.6 F (37 C)] 97.9 F (36.6 C) Pulse (Heart Rate): [60-70] 63 Resp Rate: [16] 16 BP: (98-110)/(51-72) 103/57 O2 Sat (%): [92 %-98 %] 96 % Physical Exam Gen: A, A, appears more well than day before but still fatigued, less distress ENT: Dry mucus membranes Resp: CTA & P bilat, normal effort Cardio: RRR, normal S1, S2, trace HECTOR GI: NT/ND, not too tender on distracted exam, soft, tolerating TF without retching Psych: Ox3, appropriate affect and cognition Neuro: less shaky when moving around Data Review WBC/Hgb/Hct/Plts: 10.88/10.5/33.1/235 (06/29 530) Na/K+/Phos/Mg/Ca: 138/3.7/3.2/1.9/7.9 (06/29 530) Bun/Creat/Cl/CO2/Glucose: 5/0.58/103/30/111 (06/29 05) * Patsy Lua MD - 06/28/2022 11:43 AM EDT [facility] Medicine Progress Note Patient: Sonia Szymanski, : 1995, Impression / Plan Sonia Szymanski is a 27 y.o. 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 My leading thought is that she might have had a flare of esophagitis that led to nausea/vomiting, which led to nonspecific transaminitis. Her ability to tolerate TF suggests that perhaps bypass the esophagus to allow healing might support that as the area of concern. Inability to tolerate po due to abdominal discomfort, improving Concern for undernutrition, risk for malnutrition History of esophagitis, severe with schatzki's ring ddx includes cyclic vomiting (previous MJ use), esophagitis (most likely) - able to tolerate TF /5 at goal - IV PPI BID - trial GI cocktail followed by clear liquid diet - D5 1/2 NS at 100cc/h while not taking in PO fluids (avoid overloading her stomach with free waterflushes with initiation of TF) - CT AP read is available in care everywhere - pain control with IV dilaudid. Carefully monitor respiratory status, vitals, and sedation while receiving IV narcotics given high risk for respiratory depression. - daily BMP - zofran and phenergan prn, scopolamine patch Transaminitis, hepatocellular Unclear etiology, but as improving with symptomatic treatment of her nausea and emesis, seems like it might have been secondary. However, workup is ongoing. 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 Graves disease with subsequent post surgical hypothyroidism History of hypoglycemia - endocrine consulted - not consistent with adrenal crisis as abd pain didn't respond to hydrocortisone - taper hydrocortisone to home dose (will be on home dose on 06/29) - continue levothyroxine 137.5mcg daily - continue acarbose - dextrose containing fluids as above Mixed anxiety/depression - buspar and fluoxetine through NG Seizure disorder - replace depakote ER by depakene through NG, 250mg TID Possible SLE - plaquenil via NG tube # Electrolyte Abnormalities - Replete electrolytes PRN and monitor BMI: Obesity - Follow with PCP for dietary and lifestyle modifications DVT prophylaxis with lovenox Anticipated Disposition: home Dc barriers: able to tolerate PO and po meds; when able to do that, likely can discharge home Code status is Full Code Interval History / Subjective Feeling a bit better today- stronger, still nauseus. RUQ pain is worse in AM but is stable today. She is agreeable to try to drink some liquids, trial GI cocktail PO before that to treat possible esophagitis. Objective Temp: [97.9 F (36.6 C)-99.5 F (37.5 C)] 97.9 F (36.6 C) Pulse (Heart Rate): [58-73] 62 Resp Rate: [16-18] 16 BP: (99-123)/(51-71) 99/57 O2 Sat (%): [93 %-98 %] 95 % Physical Exam Gen: A, A, appears more well than day before but still fatigued, less distress ENT: Dry mucus membranes Resp: CTA & P bilat, normal effort Cardio: RRR, normal S1, S2, trace HECTOR GI: NT/ND, not too tender on distracted exam, soft, tolerating TF without retching Psych: Ox3, appropriate affect and cognition Neuro: less shaky when moving around Data Review Na/K+/Phos/Mg/Ca: 139/3.4/3.1/1.8/8.1 (06/28 301) Bun/Creat/Cl/CO2/Glucose: 6/0.65/103/28/154 (06/28 301) * Elisa Wright, AIRCRAFT CLEANING SUPERVISOR - 06/27/2022 5:40 PM EDT Speech Language Pathology Attempt Note 06/27/2022 Attempted Reason: Patient declined session (Pt reports ongoing nausea. States: "I'm gagging right now because of the tube feed" ; declined any PO intake at this time.) AIRCRAFT CLEANING SUPERVISOR to re-attempt at later date/time as appropriate. ARACELY Boston M.A., [facility]-AIRCRAFT CLEANING SUPERVISOR License#: [id number] Can be reached at [employer] chat this day only Time In: 1506 Time Out: 1508 Total Visit Time: 2 minutes * Patsy Lua MD - 06/27/2022 11:55 AM EDT [facility] Medicine Progress Note Patient: Sonia Szymanski, : 1995, Impression / Plan Sonia Szymanski is a 27 y.o. 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 RUQ pain and inability to tolerate PO Concern for undernutrition, risk for malnutrition History of esophagitis, severe with schatzki's ring Abnormal LFTs ddx includes cyclic vomiting (previous MJ use), esophagitis. Unclear if related to LFT abnormalities. - RUQ ultrasound unrevealing, normal CBD diameter - follow up SPEP, AMA, BOBBY, ASMA, acute/chronic hepatitis panel, CK - PPI BID and trial of GI cocktail/liquid carafate given history of esophagitis - D5 1/2 NS at 100cc/h while not taking in PO fluids (avoid overloading her stomach with free waterflushes with initiation of TF) - NG tube placed on 06/25, started on TF - CT AP read is available in care everywhere - pain control with IV dilaudid. Carefully monitor respiratory status, vitals, and sedation while receiving IV narcotics given high risk for respiratory depression. - daily BMP - zofran and phenergan prn, scopolamine patch Addisons disease without clear crisis Graves disease with subsequent post surgical hypothyroidism History of hypoglycemia - endocrine consulted - not consistent with adrenal crisis as abd pain didn't respond to hydrocortisone - taper hydrocortisone to home dose (will be on home dose on 06/29) - continue levothyroxine 137.5mcg daily - continue acarbose - dextrose containing fluids as below Mixed anxiety/depression - buspar and fluoxetine through NG Seizure disorder - replace depakote ER by depakene through NG, 250mg TID Possible SLE - plaquenil via NG tube # Electrolyte Abnormalities - Replete electrolytes PRN and monitor BMI: Obesity - Follow with PCP for dietary and lifestyle modifications DVT prophylaxis with lovenox Anticipated Disposition: home Code status is Full Code Interval History / Subjective Still having abdominal pain, and "sick to my stomach" but has been able to tolerate TF up to 40cc/hthis morning. We talked about the behavioral response of conditioning as she feels very anxious to take food by mouth and thus hasn't tried recenlty. Hwoever, being able to tolerate TF suggests taht functionally, her GI tract is working appropriately. Her pain is not necessarily worse with the tubefeeds. Her LFTs are improving. Objective Temp: [98.3 F (36.8 C)-98.8 F (37.1 C)] 98.3 F (36.8 C) Pulse (Heart Rate): [59-64] 64 Resp Rate: [16] 16 BP: (111-122)/(58-75) 115/73 O2 Sat (%): [92 %-97 %] 96 % Physical Exam Gen: A, A, moderate-severe distress, fatigued ENT: Dry mucus membranes Resp: CTA & P bilat, normal effort Cardio: RRR, normal S1, S2, No HECTOR GI: NT/ND, not too tender on distracted exam, soft, tolerating TF without retching Psych: Ox3, appropriate affect and cognition Neuro: shaky when moving around Data Review WBC/Hgb/Hct/Plts: 12.61/11.9/36.0/286 (06/27 134) Na/K+/Phos/Mg/Ca: 138/3.1/3.1/1.8/8.2 (06/27 134) Bun/Creat/Cl/CO2/Glucose: 6/0.67/103/27/130 (06/27 134) * Patsy Lua MD - 06/26/2022 12:23 PM EDT [facility] Medicine Progress Note Patient: Sonia Szymanski, : 1995, Impression / Plan Sonia Szymanski is a 27 y.o. 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 RUQ pain and inability to tolerate PO Concern for undernutrition History of esophagitis, severe with schatzki's ring Abnormal LFTs ddx includes cyclic vomiting (previous MJ use), esophagitis. Unclear if related to LFT abnormalities. - RUQ ultrasound unrevealing, normal CBD diameter - follow up SPEP, AMA, BOBBY, ASMA, acute/chronic hepatitis panel, CK - PPI BID and trial of GI cocktail/liquid carafate given history of esophagitis - D5 1/2 NS at 100cc/h - NG tube placed on 06/25, will start TF on jevity 06/26 to see how she tolerates it - CT AP read is available in care everywhere - pain control with IV dilaudid. Carefully monitor respiratory status, vitals, and sedation while receiving IV narcotics given high risk for respiratory depression. Addisons disease without clear crisis Graves disease with subsequent post surgical hypothyroidism History of hypoglycemia - endocrine consulted - not consistent with adrenal crisis as abd pain didn't respond to hydrocortisone - taper hydrocortisone to home dose (will be on home dose on 06/29) - continue levothyroxine 137.5mcg daily - continue acarbose - dextrose containing fluids as below Mixed anxiety/depression - buspar and fluoxetine Seizure disorder - replace depakote ER by depakene through NG, 250mg TID Possible SLE - plaquenil via NG tube # Electrolyte Abnormalities - Replete electrolytes PRN and monitor BMI: Obesity - Follow with PCP for dietary and lifestyle modifications DVT prophylaxis with lovenox Anticipated Disposition: home Code status is Full Code Interval History / Subjective Still having abdominal pain. Never had this before, very severe in RUQ. Feels like something is pushing when laying on her left side. Objective Temp: [97.8 F (36.6 C)-98.6 F (37 C)] 98.3 F (36.8 C) Pulse (Heart Rate): [46-69] 69 Resp Rate: [10-18] 18 BP: (104-143)/(52-85) 121/73 O2 Sat (%): [90 %-94 %] 93 % Physical Exam Gen: A, A, moderate-severe distress ENT: Dry mucus membranes Resp: CTA & P bilat, normal effort Cardio: RRR, normal S1, S2, No HECTOR GI: NT/ND, diffusely tender, soft Psych: Ox3, appropriate affect and cognition Neuro: shaky when moving around Data Review WBC/Hgb/Hct/Plts: 9.39/11.8/36.0/292 (06/26 414) Na/K+/Phos/Mg/Ca: 138/3.4/--/--/8.3 (06/26 414) Bun/Creat/Cl/CO2/Glucose: 10/0.77/103/25/117 (06/26 414) Ptt/Pt/Inr: --/15.1/1.2 (06/26 414) * Martha Purcell, RD - 06/26/2022 11:11 AM EDT NUTRITION CONSULT Nutrition Recommendations and Plan of Care: 1.Diet progression as tolerated. Ensure Clear TID while on CLD (240 calories and 8 g protein) Ensure Plus TID (350 calories and 20 g protein) if on FLD/ Regular diet 2.Continued poor PO intakes. If TF becomes part of plan of care recommend Jevity 1.5 at 50 mL/hr. At refeeding risk, supplement thiamine 100 mg x 5-7 days. Monitor potassium, phosphorus, and magnesium 3.RD to follow Per HPI: Sonia Szymanski is a 27 y.o. 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, seizure disorder, graves disease s/p thyroidectomy and hypothyroidism who presented to [facility] ED with dizziness, n/v and abdominal pain transferred here for further management with concern for addisons crisis and new transaminitis Past History Past Medical History: Diagnosis Date Adrenal insufficiency ([place]'s disease) Migraine Postoperative hypothyroidism Past Surgical History: Procedure Laterality Date CHOLECYSTECTOMY LAPAROSCOPIC 06/09/2021 APPENDECTOMY 12/28/2020 HYSTERECTOMY 08/13/2020 [address] consulted to assess for malnutrition. Chart reviewed and consult done virtually. Patient currently has clear liquid diet. No height or weight listed. is allergic to azithromycin, latex, and neosporin [bacitracin-polymyxin b]. Current Diet Orders Procedures DIET CLEAR LIQUID Standing Status: Standing Number of Occurrences: 1 Height/Weight Evaluation Ht: 5' 5"/165.1cm Wt: 181#/82.2 kg IBW: 125#/56.8 kg BMI: 30.17 kg/(m^2) Weight History: Wt Readings from Last 10 Encounters: 06/25/22 82.2 kg (181 lb 4.8 oz) BP: 143/85 Pulse (Heart Rate): 59 Meds reviewed: [START ON 06/29/2022] hydrocortisone 10 mg Oral 2 times per day And [START ON 06/29/2022] hydrocortisone 5 mg Oral QHS hydrocortisone sodium succinate PF (SOLU-CORTEF) injection 50 mg Intravenous Q8H Followed by [START ON 06/27/2022] hydrocortisone sodium succinate PF (SOLU-CORTEF) injection 50 mg Intravenous Q12H Followed by [START ON 06/28/2022] hydrocortisone sodium succinate PF (SOLU-CORTEF) injection 25 mg Intravenous Q12H levothyroxine 137.5 mcg Per NG tube Before BKF pantoprazole 40 mg Intravenous BID Labs Reviewed: WBC/Hgb/Hct/Plts: 9.39/11.8/36.0/292 (06/26 414) Bun/Creat/Cl/CO2/Glucose: 10/0.77/103/25/117 (06/26 414) Na/K+/Phos/Mg/Ca: 138/3.4/--/--/8.3 (06/26 414) PE: GI: BM 06/22, N/V Skin: Anil Score: 19 Estimated Nutrition Needs Wt used: 56.8 kg - IBW EEN (kcal/d): 7316-0434 (25-30 kcal/kg IBW) EPN (g pro/d): 68-85 (1.2-1.5 g/kg IBW) Assessment Malnutrition Statement as evidenced by clinical characteristics: Indications of Malnutrition: Unable to assess due to no height/ weight history available based on the AND/ASPEN Malnutrition Criteria 2012 Pt is currently at nutrition risk due to prolonged poor PO intakes Martha Purcell RD, LD Pager [phone] * Trish Marshall RN - 06/25/2022 3:34 PM EDT Second assessment complete. Pt needing a NG tube placed. Pt unable to tolerate PO at this time. Bedlocked and in lowest position. Call light within reach. Will continue to monitor. Trish Marshall RN * ARACELY Hernandez - 06/25/2022 3:23 PM EDT Acute Care Speech-Language Pathology Clinical Swallow Evaluation Diet recommendation: Recommended Method of Nutrition: Combination of PO and NPO, Short-term alternate nutrition (NPO fornutrition and until true swallowing baseline determined) Recommended Diet Grade: full liquid (with NG tube supplement) Recommended Liquid Consistency: liquid- thin (IDDSI 0) Recommended Medication Administration (as appropriate per MD): Per patient preference Type of Cues/Supervision: intermittent supervision Assistance: speech, nurse/aide, family Other Recommendations: Referrals: GE, Dietitian/calorie counts, Speech Language Pathologist Discharge Recommendations: Based on the below outcome measures/assessment score(s) and AIRCRAFT CLEANING SUPERVISOR clinicaljudgment, discharge destination recommendation is: (TBD pending NG placement, additional PO trials- nutritional concerns) Barriers to discharge home: Pain management concerns Current therapy frequency recommendation in acute care: Swallow Therapy Frequency: 5 times a week Date of Admission: 06/25/2022 Date of Evaluation: 06/25/2022 Attending Physician: Sai Joyce MD General Patient Information Name: Sonia Szymanski Gender: adult Date of : 1995 Primary Diagnosis: No diagnosis found. Past Medical History: Diagnosis Date Adrenal insufficiency ([place]'s disease) Migraine Postoperative hypothyroidism Past Surgical History: Procedure Laterality Date CHOLECYSTECTOMY LAPAROSCOPIC 06/09/2021 APPENDECTOMY 12/28/2020 HYSTERECTOMY 08/13/2020 THYROIDECTOMY 2016 Pain: General Pain Documentation (Adult, OB, Peds) Presence of Pain: complains of pain/discomfort DVPRS (Defense and Veterans Pain Rating Scale) DVPRS: Rest: 5- moderate pain DVPRS: Activity: 5- moderate pain General Pain Descriptors Pain Frequency: constant Pain Quality: sharp, dull Factors That Aggravate Pain: activity Patient History Comments: Pt is a 27 y.o. 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 Prior AIRCRAFT CLEANING SUPERVISOR history: No known AIRCRAFT CLEANING SUPERVISOR notes at this facility. Current Method of Nutrition: Route of Nutrition: PO, NPO Diet Grade: Clear Liquids Respiratory Status: O2 Device: room air O2 Sat (%): 94 % Resp Rate: 18 Subjective: Pt pleasant, alert, and mostly cooperative but noted to be very anxious, distracted by pain/discomfort and refused PO trials beyond thin liquids due to extreme nausea and fear of vomiting, (pt observed to immediately dry heave upon thin liquid trials). When asked to trial any additionalsolids, pt observed to become very emotional and start crying. Pt's on-call nurse consulted immediately before dx session and nurse/MD consulted immediately after dx session today for nutritional/GI concerns. Pt's spouse and son present for entirety of dx session today and pt's spouse stated that pt has not been able to hold food down or consume much of any food in almost a week due to frequent vo miting and extreme pain/nausea and is "very open to placing a feeding tube at this point." When asked, pt stated hx of GERD/reflux and "takes Nexium every day" per pt report. Exam limited by cognition: No Objective Evaluation: Oral Motor: Cranial Nerve Exam CN V (Trigeminal) normal blink CN VII (Facial) strong bilateral movement of upper and lower face CN IX (Glossopharyngeal) gag reflex intact CN X (Vagus) gag reflex intact, uvula is midline CN XI (Accessory) strong and equal shoulder shrug, raises head off pillow without difficulty CN XII (Hypoglossal) clearly articulated speech Vocal Quality: mild, breathy GRBAS: A perceptual rating scale for voice parameters Rating scale of 0 to 3 0 = no impairment 1 = minimal to mild impairment 2 = moderate impairment 3 = severe impairment Positionin degrees (sitting at edge of bed) Anticipatory Phase: Functional Foods and Liquids Trialed: Modality: Amount: Thin AIRCRAFT CLEANING SUPERVISOR-fed, Consecutive Drinks, Straw, Cup Oral Phase Function Comments Oral Mucosa Intact Dentition Natural teeth: Missing some Labial Closure Functional Mastication Unable to assess Oral Stasis (unable to assess) Cough before the swallow Absent Oral Phase Summary: unable to fully assess as pt refused PO treatment beyond thin liquids at this time Pharyngeal Phase Function Comments Perceived Swallow Present Cough Response No Throat Clear Yes Subjective Complaint of Residue Present Pharyngeal Phase Summary: suspect impairment- unable to fully assess solids due to patient refusal/severe nausea Strategies Trialed: Strategy: Effectiveness: Voice and Swallow Outcomes: Functional Oral Intake Scale: Level 4 - Total oral intake of a single consistency Clinical Impression: Sonia Szymanski presents with No chief complaint on file. Upon administration of BSE, pt presents with presumed oropharyngeal dysphagia with moderate esophageal suspected due to pt's hx of GERD with esophagitis, abdominal pain, extreme nausea and frequent emesis of all given foods/liquids. As nutrition is a concern of both patient, family, and this AIRCRAFT CLEANING SUPERVISOR, pt's MD consulted on need for NG placement. Pt to continue to attempt PO trials of various textures as appropriate and pt is able to tolerate to determine true swallowing baseline and if instrumental swallow study is recommended. Acute AIRCRAFT CLEANING SUPERVISOR Goals Plan of Care by ARACELY Hernandez at 06/25/2022 3:13 PM Version 1 of 1 Problem: AIRCRAFT CLEANING SUPERVISOR - Dysphagia Goal: PO Trial 2 Description: Patient will accept various trials of liquid and solid consistencies (10 trials of each consistency) with no signs/symptoms of laryngeal penetration/aspiration and no respiratory complications to determine the readiness for diet advancement vs an instrumental swallow assessment, over the course of 2 sessions. Outcome: Ongoing Speech Language Pathologist: ARACELY Hernandez Time In: 1433 Time Out: 1500 Total Visit Time: 27 minutes Total Treatment Time (skilled, billable minutes): 24 minutes Dang Jones M.A., [facility]-AIRCRAFT CLEANING SUPERVISOR License #: [id number] Available by secure chat. I was assisted by nobody for today's session. and I used gloves and facemask in today's patient interaction. Patient location at end of session: edge of bed Alarms on at end of session: bed alarm Needs in reach. Upon discontinuation of Acute Care Speech Therapy Services or patient discharge from the hospital this note represents the current Speech Therapy Discharge Summary * Gill Sheets - 06/25/2022 3:19 PM EDT RUQ ultrasound completed. Report to follow. * FAHAD Andrea - 06/25/2022 6:22 AM EDT Only able to obtain some morning labs. PT is difficult stick. INCLUSION PARAEDUCATOR attempted 2x and RN attempted 2x.Tried to use vein finder but PT has no visible veins. FAHAD Andrea [facility]* Plan of Care - Selma Cortés RN - 07/04/2022 9:40 AM EDT Problem: Patient Care Overview Goal: Plan of Care Review Outcome: Ongoing Goal: Individualization & Mutuality Outcome: Ongoing Problem: Nutrition, Imbalanced: Inadequate Oral Intake (Adult) Goal: Identify Related Risk Factors and Signs and Symptoms Description: Related risk factors and signs and symptoms are identified upon initiation of Human Response Clinical Practice Guideline (CPG) Outcome: Ongoing Goal: Improved Oral Intake Description: Patient will demonstrate the desired outcomes by discharge/transition of care. Outcome: Ongoing [facility]-12-[facility]* Nursing Notes - Liv Last RN - 07/04/2022 4:00 AM EDT Second assessment complete, no changes noted at this time in flowsheets. Pt resting in bed, call light within reach. RN will continue to monitor. [facility]09-11-20[facility] Note* Plan of Care - Liv Last RN - 07/03/2022 8:00 PM EDT Problem: Patient Care Overview Goal: Plan of Care Review Outcome: Ongoing Problem: Nutrition, Imbalanced: Inadequate Oral Intake (Adult) Goal: Identify Related Risk Factors and Signs and Symptoms Description: Related risk factors and signs and symptoms are identified upon initiation of Human Response Clinical Practice Guideline (CPG) Outcome: Ongoing Problem: Nausea/Vomiting (Adult) Goal: Identify Related Risk Factors and Signs and Symptoms Description: Related risk factors and signs and symptoms are identified upon initiation of Human Response Clinical Practice Guideline (CPG) Outcome: Ongoing Problem: Fall/Trauma/Injury Risk (Adult) Goal: Fall/Trauma/Injury Risk: Absence of Trauma/Injury/Falls Description: Patient will demonstrate the desired outcomes. Outcome: Ongoing Problem: Nutrition, Enteral (Adult) Goal: Signs and Symptoms of Listed Potential Problems Will be Absent, Minimized or Managed (Nutrition, Enteral) Description: Signs and symptoms of listed potential problems will be absent, minimized or managed by discharge/transition of care (reference Nutrition, Enteral (Adult) CPG). Outcome: Ongoing [facility]* Nursing Notes - Lori Olmstead RN - 07/03/2022 4:50 PM EDT Second assessment complete, no changes noted. Patient resting in bed with call light in reach. Denies any unmet needs, will continue to monitor. [facility]* Nursing Notes - Lori Olmstead RN - 07/03/2022 3:[address] Begum, administered Hydromorphone to pt for what seemed to be breakthrough pain prior to 12 hour time frame administration. [facility]* Plan of Care - Lori Olmstead RN - 07/03/2022 9:00 AM EDT Problem: Nutrition, Imbalanced: Inadequate Oral Intake (Adult) Goal: Identify Related Risk Factors and Signs and Symptoms Description: Related risk factors and signs and symptoms are identified upon initiation of Human Response Clinical Practice Guideline (CPG) Outcome: Ongoing Goal: Improved Oral Intake Description: Patient will demonstrate the desired outcomes by discharge/transition of care. Outcome: Ongoing Goal: Prevent Further Weight Loss Description: Patient will demonstrate the desired outcomes by discharge/transition of care. Outcome: Ongoing [facility]* Nursing Notes - Charline Deleon RN - 07/03/2022 4:47 AM EDT Second assessment done. No changes noted from initial assessment unless noted in chart. Patient is resting, call light within reach. RN continue monitoring. [facility]* Plan of Care - Charline Deleon RN - 07/03/2022 2:10 AM EDT Problem: Patient Care Overview Goal: Plan of Care Review Outcome: Ongoing Goal: Individualization & Mutuality Outcome: Ongoing Goal: Discharge Needs Assessment Outcome: Ongoing Problem: Nutrition, Imbalanced: Inadequate Oral Intake (Adult) Goal: Identify Related Risk Factors and Signs and Symptoms Description: Related risk factors and signs and symptoms are identified upon initiation of Human Response Clinical Practice Guideline (CPG) Outcome: Ongoing Goal: Improved Oral Intake Description: Patient will demonstrate the desired outcomes by discharge/transition of care. Outcome: Ongoing [facility]* Nursing Notes - Lori Olmstead RN - 07/02/2022 4:13 PM EDT Second assessment complete, no changes noted. Patient resting in bed with call light in reach. Denies any unmet needs, will continue to monitor. [facility]* Plan of Care - Lori Olmstead RN - 07/02/2022 10:18 AM EDT Problem: Nutrition, Imbalanced: Inadequate Oral Intake (Adult) Goal: Identify Related Risk Factors and Signs and Symptoms Description: Related risk factors and signs and symptoms are identified upon initiation of Human Response Clinical Practice Guideline (CPG) Outcome: Ongoing Goal: Improved Oral Intake Description: Patient will demonstrate the desired outcomes by discharge/transition of care. Outcome: Ongoing Problem: Nausea/Vomiting (Adult) Goal: Symptom Relief Description: Patient will demonstrate the desired outcomes by discharge/transition of care. Outcome: Ongoing Goal: Adequate Hydration Description: Patient will demonstrate the desired outcomes by discharge/transition of care. Out[facility]* Nursing Notes - Charline Deleon RN - 07/02/2022 3:06 AM EDT Second assessment done. No changes noted from initial assessment unless noted in chart. Patient is resting, call light within reach. [facility]* Plan of Care - Charline Deleon RN - 07/02/2022 3:04 AM EDT Problem: Patient Care Overview Goal: Plan of Care Review Outcome: Ongoing Goal: Individualization & Mutuality Outcome: Ongoing Goal: Discharge Needs Assessment Outcome: Ongoing Problem: Nutrition, Imbalanced: Inadequate Oral Intake (Adult) Goal: Identify Related Risk Factors and Signs and Symptoms Description: Related risk factors and signs and symptoms are identified upon initiation of Human Response Clinical Practice Guideline (CPG) Outcome: Ongoing Goal: Improved Oral Intake Description: Patient will demonstrate the desired outcomes by discharge/transition of care. Outcome: Ongoing Problem: Nausea/Vomiting (Adult) Goal: Identify Related Risk Factors and Signs and Symptoms Description: Related risk factors and signs and symptoms are identified upon initiation of Human Response Clinical Practice Guideline (CPG) Outcome: Ongoing Goal: Symptom Relief Description: Patient will demonstrate the desired outcomes by discharge/transition of care. Outcome: Ongoing [facility]* Nursing Notes - Charline Deleon RN - 07/01/2022 10:00 PM EDT Patient complains of pain abdomen after dinner. Medication given see ACE. informed. Will give report to day shift nurse for further management. [facility]09-09-[facility] Note* Nursing Notes - Jeanette Dial RN - 07/01/2022 4:24 PM EDT Discharge plan is home (with outpatient PT/OT in her local area) when medically stable. Family expected to provide transportation. 07/01/22 1624 Patient Coping/Stress Concerns Patient/Family In Agreement With Plan yes Final Discharge Planning Discharge Disposition Home CM/SW AVS Portion Completed Yes Transport Request Mode of Transfer private vehicle Accompanied By family member Signed, Ralf Rivers., R.N. Clinical [employer] [facility]09-09-2022 Note* Plan of Care - Jewell Vazquez RD - 07/01/2022 4:15 PM EDT NUTRITION RECOMMENDATIONS AND PLAN OF CARE 1.Tolerate Regular diet w/50 - 75% intake of meals. Provide Ensure Plus high proteinTID (350 calories and 20 g protein). 2. Receiving TF Jevity 1.5 at 50 mL/hr. For nutrition support. This provides 1800 Kcals/d and 77 gms Pro/d w/912 ml water/d. Additional water indicated for hydration needs. -DC NG, trial PO diet (perM.D. today) 3. At refeeding risk, supplement thiamine 100 mg x 5-7 days. Monitor potassium, phosphorus, and magnesium 4 Monitor wt status. 5 Glycemic control. 6 Follow and monitor po intake, tube feeding, wt, labs, skin and bowel function. [facility]09-09-2022 Note* Nursing Notes - Selma Cortés RN - 07/01/2022 4:00 PM EDT Second assessment complete. No changes from AM assessment, other than pt's NG tube was removed. Pt denies any needs at this time. Pt is resting with call light in reach. Selma Cortés RN [facility]09-09-2022 Note* Plan of Care - Selma Cortés RN - 07/01/2022 11:59 AM EDT Problem: Patient Care Overview Goal: Plan of Care Review Outcome: Ongoing Goal: Individualization & Mutuality Outcome: Ongoing Problem: Nutrition, Imbalanced: Inadequate Oral Intake (Adult) Goal: Identify Related Risk Factors and Signs and Symptoms Description: Related risk factors and signs and symptoms are identified upon initiation of Human Response Clinical Practice Guideline (CPG) Outcome: Ongoing Goal: Improved Oral Intake Description: Patient will demonstrate the desired outcomes by discharge/transition of care. Outcome: Ongoing [facility]09-09-2022 Note* Nursing Notes - Selma Cortés RN - 07/01/2022 11:17 AM EDT Assumed care of this patient. Assessment noted in flow sheet. [facility]09-09-2022 Note* Plan of Care - Trung Perez RN - 07/01/2022 3:33 AM EDT Problem: Patient Care Overview Goal: Plan of Care Review Outcome: Ongoing Goal: Individualization & Mutuality Outcome: Ongoing Goal: Discharge Needs Assessment Outcome: Ongoing Problem: Nutrition, Imbalanced: Inadequate Oral Intake (Adult) Goal: Identify Related Risk Factors and Signs and Symptoms Description: Related risk factors and signs and symptoms are identified upon initiation of Human Response Clinical Practice Guideline (CPG) Outcome: Ongoing Goal: Improved Oral Intake Description: Patient will demonstrate the desired outcomes by discharge/transition of care. Outcome: Ongoing Goal: Prevent Further Weight Loss Description: Patient will demonstrate the desired outcomes by discharge/transition of care. Outcome: Ongoing Problem: Nausea/Vomiting (Adult) Goal: Identify Related Risk Factors and Signs and Symptoms Description: Related risk factors and signs and symptoms are identified upon initiation of Human Response Clinical Practice Guideline (CPG) Outcome: Ongoing Goal: Symptom Relief Description: Patient will demonstrate the desired outcomes by discharge/transition of care. Outcome: Ongoing Goal: Adequate Hydration Description: Patient will demonstrate the desired outcomes by discharge/transition of care. Outcome: Ongoing Problem: Fall/Trauma/Injury Risk (Adult) Goal: Fall/Trauma/Injury Risk: Absence of Trauma/Injury/Falls Description: Patient will demonstrate the desired outcomes. Outcome: Ongoing Goal: Knowledge of risk factors/behavior modification Description: Knowledge of risk factors/behavior modification for fall/injury prevention Outcome: Ongoing Admitted for n/v/abd pain, treated with placement of NG tube and tube feeds; patient has poor po intake, and reports severe pain when eating food. Tolerating tube feeds with occasional complaints of pain, nausea. Plan is to encourage PO intake with goal to withdraw NG tube, treat pain with PO pain medications (with IV on board for breakthrough pain -- RN tells patient she can have a dose only once a shift, a stipulation patient agrees to) and nausea with prn nausea meds. Anticiapte discharge tohome when clinically appropriate [facility]09-08-2022 Note* Nursing Notes - Harpal Alexander RN - 06/30/2022 5:32 PM EDT Patient reassessed no new findings at this time, RN to continue to monitor. [facility]09-08-2022 Note* Plan of Care - ARACELY Boston - 06/30/2022 1:13 PM EDT Problem: [employer]PER[employer]OR - Dysphagia Goal: PO Trial 2 Description: Patient will accept various trials of liquid and solid consistencies (10 trials of each consistency) with no signs/symptoms of laryngeal penetration/aspiration and no respiratory complications to determine the readiness for diet advancement vs an instrumental swallow assessment, over the course of 2 sessions. Outcome: Completed Note: Pt consumed 3 trials regular solid (hard cookie) w/functional mastication and complete oral clearance and x6 trial thin liquid via straw (chocolate milk) with no overt s/sx of penetration/aspiration. Pt endorsed discomfort with swallow, reporting she can feel the tube as she swallows, howeverthis does not appear to impact swallow function or safety. [facility]09-08-2022 Note* Plan of Care - Harpal Alexander RN - 06/30/2022 12:11 PM EDT Problem: Nutrition, Imbalanced: Inadequate Oral Intake (Adult) Goal: Identify Related Risk Factors and Signs and Symptoms Description: Related risk factors and signs and symptoms are identified upon initiation of Human Response Clinical Practice Guideline (CPG) Outcome: Ongoing Goal: Improved Oral Intake Description: Patient will demonstrate the desired outcomes by discharge/transition of care. Outcome: Ongoing Goal: Prevent Further Weight Loss Description: Patient will demonstrate the desired outcomes by discharge/transition of care. Outcome: Ongoing Problem: Nausea/Vomiting (Adult) Goal: Identify Related Risk Factors and Signs and Symptoms Description: Related risk factors and signs and symptoms are identified upon initiation of Human Response Clinical Practice Guideline (CPG) Outcome: Ongoing Goal: Symptom Relief Description: Patient will demonstrate the desired outcomes by discharge/transition of care. Outcome: Ongoing Goal: Adequate Hydration Description: Patient will demonstrate the desired outcomes by discharge/transition of care. Outcome: Ongoing Problem: Fall/Trauma/Injury Risk (Adult) Goal: Fall/Trauma/Injury Risk: Absence of Trauma/Injury/Falls Description: Patient will demonstrate the desired outcomes. Outcome: Ongoing Goal: Knowledge of risk factors/behavior modification Description: Knowledge of risk factors/behavior modification for fall/injury prevention Outcome: Ongoing Problem: Patient Care Overview Goal: Interdisciplinary Rounds/Family Conf Outcome: Completed Flowsheets (Taken 06/30/2022 1210) Participants: patient physician nursing [facility]09-08-2022 Miscellaneous Notes* Telephone Encounter - Ceci Hdez LPN - 06/30/2022 8:42 AM EDT Called patient. No answer- left message and informed sending myChart message. Patient has appointment tomorrow with Rigoberto Lopez PA-C. Appointment notes states reason for appointment is a ER follow up. Which ER was patient seen at and when? [facility]* Plan of Care - Trung Perez RN - 06/30/2022 6:10 AM EDT Problem: Patient Care Overview Goal: Plan of Care Review Outcome: Ongoing Goal: Individualization & Mutuality Outcome: Ongoing Goal: Discharge Needs Assessment Outcome: Ongoing Goal: Interdisciplinary Rounds/Family Conf Outcome: Ongoing Problem: [employer]PER[employer]OR - Dysphagia Goal: PO Trial 2 Description: Patient will accept various trials of liquid and solid consistencies (10 trials of each consistency) with no signs/symptoms of laryngeal penetration/aspiration and no respiratory complications to determine the readiness for diet advancement vs an instrumental swallow assessment, over the course of 2 sessions. Outcome: Ongoing Problem: Nutrition, Imbalanced: Inadequate Oral Intake (Adult) Goal: Identify Related Risk Factors and Signs and Symptoms Description: Related risk factors and signs and symptoms are identified upon initiation of Human Response Clinical Practice Guideline (CPG) Outcome: Ongoing Goal: Improved Oral Intake Description: Patient will demonstrate the desired outcomes by discharge/transition of care. Outcome: Ongoing Goal: Prevent Further Weight Loss Description: Patient will demonstrate the desired outcomes by discharge/transition of care. Outcome: Ongoing Problem: Nausea/Vomiting (Adult) Goal: Identify Related Risk Factors and Signs and Symptoms Description: Related risk factors and signs and symptoms are identified upon initiation of Human Response Clinical Practice Guideline (CPG) Outcome: Ongoing Goal: Symptom Relief Description: Patient will demonstrate the desired outcomes by discharge/transition of care. Outcome: Ongoing Goal: Adequate Hydration Description: Patient will demonstrate the desired outcomes by discharge/transition of care. Outcome: Ongoing Admitted for abdominal pain, nausea, vomiting. NG tube placed, tolerating tube feeds. Able to eat small amounts of food and drink (was able to take meds by mouth as well). Anticipate transitioning Prudence intake and discontinuation of NG tube, before eventual discharge to home [facility]09-07-2022 Note* Nursing Notes - Zoie Mauro RN - 06/29/2022 3:12 PM EDT Patient reassessed no new findings at this time, RN to continue to monitor. [facility]09-07-2022 Note* Plan of Care - Zoie Mauro RN - 06/29/2022 8:31 AM EDT Problem: Patient Care Overview Goal: Plan of Care Review Outcome: Ongoing Goal: Individualization & Mutuality Outcome: Ongoing Goal: Discharge Needs Assessment Outcome: Ongoing Goal: Interdisciplinary Rounds/Family Conf Outcome: Ongoing Problem: Nutrition, Imbalanced: Inadequate Oral Intake (Adult) Goal: Identify Related Risk Factors and Signs and Symptoms Description: Related risk factors and signs and symptoms are identified upon initiation of Human Response Clinical Practice Guideline (CPG) Outcome: Ongoing Goal: Improved Oral Intake Description: Patient will demonstrate the desired outcomes by discharge/transition of care. Outcome: Ongoing [facility]09-06-2022 Note* Nursing Notes - Jeanette Dial RN - 06/28/2022 4:36 PM EDT Admission Screening for Discharge Planning Patient is here for nausea & vomiting. After review of chart and discussion with treatment team, [employer] has not identified needs at this time. Patient is expected to discharge home (able totolerate oral food and medication per Dr. Lua). Should discharge needs arise please place a consult order for case management. 06/28/22 1634 Patient Assessment Completed Patient Assessment Completed Screening Initial Discharge Planning Anticipated discharge disposition Home Transportation Available for Discharge Family or Friend Anticipated DME none Admission Assessment Reason for Admission nausea & vomiting Has the patient been admitted to any hospital in the last 30 days? No Outpatient Providers Does patient have a primary care physician? Yes Environment/Caregivers Is the patient from a facility or care home? No Services Does the patient use a home health or hospice agency? No Medication Management Does the patient have prescription insurance coverage? Yes Risk of Readmission: 4.4 Category Reference: High:16-100 Mod-High:10-16 Mod-Low: 5-10 Low: 0-5 Filomena, Hayder Rivers, R.N. Clinical [employer] [facility]09-06-2022 Note* Nursing Notes - Zoie Mauro RN - 06/28/2022 3:34 PM EDT Patient reassessed no new findings at this time, RN to continue to monitor. [facility]09-06-2022 Note* Plan of Care - Zoie Mauro RN - 06/28/2022 10:08 AM EDT Problem: Patient Care Overview Goal: Plan of Care Review Outcome: Ongoing Goal: Individualization & Mutuality Outcome: Ongoing Goal: Discharge Needs Assessment Outcome: Ongoing Goal: Interdisciplinary Rounds/Family Conf Outcome: Ongoing Problem: Nutrition, Imbalanced: Inadequate Oral Intake (Adult) Goal: Identify Related Risk Factors and Signs and Symptoms Description: Related risk factors and signs and symptoms are identified upon initiation of Human Response Clinical Practice Guideline (CPG) Outcome: Ongoing Goal: Improved Oral Intake Description: Patient will demonstrate the desired outcomes by discharge/transition of care. Outcome: Ongoing [facility]09-06-2022 Hospital Discharge instructions* Discharge Instructions* Danyell Rivera RN - 06/28/2022 10:06 AM EDT Patient Experience Survey Reminder You may receive a survey in the mail within a few weeks regarding your hospitalization. This helps us to improve the care and services we provide at [facility]. We truly appreciate you taking the time to fill this out. We particularly welcome any specific comments you may have (good or bad!) regarding your experienceat [facility] so that we may use them to continue to strive towards excellence for our patients. [facility]* Nursing Notes - Gill Recio RN - 06/28/2022 2:34 AM EDT Second assessment completed, unchanged from previous. Pt resting calmly with call light and belongings in reach. [facility]09-05-2022 Note* Nursing Notes - Ree Alonzo RN - 06/27/2022 3:51 PM EDT Second assessment completed without changes from previous. Will continue to monitor. Ree Alonzo RN [facility]09-05-2022 Note* Plan of Care - Ree Alonzo RN - 06/27/2022 10:36 AM EDT Problem: Patient Care Overview Goal: Plan of Care Review Outcome: Ongoing Problem: Nutrition, Imbalanced: Inadequate Oral Intake (Adult) Intervention: Promote/Optimize Nutrition Flowsheets (Taken 06/27/2022 1036) Oral Nutrition Promotion: rest periods promoted Problem: Nausea/Vomiting (Adult) Intervention: Minimize Nausea Triggers/Manage Symptoms Flowsheets (Taken 06/27/2022 1036) Nausea/Vomiting Interventions: antiemetic given [facility]09-05-2022 Note* Nursing Notes - Charline Deleon RN - 06/27/2022 4:38 AM EDT Patient verbalized mild nausea and abdominal discomfort but not worst. MD notified suggested to increased by 10ml/hr. See MAR. [facility]09-05-2022 Note* Nursing Notes - Charline Deleon RN - 06/27/2022 3:23 AM EDT Second assessment done. No changes noted from initial assessment unless noted in chart. Patient is resting, call light within reach. No complain verbalized by the patient at this time. RN continue monitoring. [facility]09-05-2022 Note* Plan of Care - Charline Deleon RN - 06/27/2022 3:23 AM EDT Problem: Patient Care Overview Goal: Plan of Care Review Outcome: Ongoing Goal: Individualization & Mutuality Outcome: Ongoing Goal: Discharge Needs Assessment Outcome: Ongoing Problem: Nutrition, Imbalanced: Inadequate Oral Intake (Adult) Goal: Identify Related Risk Factors and Signs and Symptoms Description: Related risk factors and signs and symptoms are identified upon initiation of Human Response Clinical Practice Guideline (CPG) Outcome: Ongoing Goal: Improved Oral Intake Description: Patient will demonstrate the desired outcomes by discharge/transition of care. Outcome: Ongoing Goal: Prevent Further Weight Loss Description: Patient will demonstrate the desired outcomes by discharge/transition of care. Outcome: Ongoing Problem: Nausea/Vomiting (Adult) Goal: Identify Related Risk Factors and Signs and Symptoms Description: Related risk factors and signs and symptoms are identified upon initiation of Human Response Clinical Practice Guideline (CPG) Outcome: Ongoing Goal: Symptom Relief Description: Patient will demonstrate the desired outcomes by discharge/transition of care. Outcome: Ongoing [facility]09-05-2022 Note* Nursing Notes - Charline Deleon RN - 06/27/2022 2:24 AM EDT Patient complains of nausea and mild abdominal discomfort. Inj Zofran administered. NG feeding running 30ml/hr. informed and suggested to monitor symptom for next 2 hour and will modified rate according to her symptoms. [facility]09-04-2022 Note* Plan of Care - Dulce Wilson RN - 06/26/2022 4:00 PM EDT Problem: Patient Care Overview Goal: Plan of Care Review Outcome: Ongoing Problem: Nutrition, Imbalanced: Inadequate Oral Intake (Adult) Goal: Improved Oral Intake Description: Patient will demonstrate the desired outcomes by discharge/transition of care. Outcome: Ongoing Problem: Nausea/Vomiting (Adult) Goal: Symptom Relief Description: Patient will demonstrate the desired outcomes by discharge/transition of care. Outcome: Ongoing [facility]09-04-2022 Note* Nursing Notes - Dulce Wilson RN - 06/26/2022 3:21 PM EDT Patient reassessed and still with complaints of continued nausea. Jevity 1.5 william running at 10 ml, and patient denying emesis since initiation. PRN pain medications administered as needed. Call lightwithin reach. Will continue to monitor. [facility]09-04-2022 Note* Plan of Care - Martha Purcell RD - 06/26/2022 11:38 AM EDT Nutrition Recommendations and Plan of Care: 1.Diet progression as tolerated. Ensure Clear TID while on CLD (240 calories and 8 g protein) Ensure Plus TID (350 calories and 20 g protein) if on FLD/ Regular diet 2.Continued poor PO intakes. If TF becomes part of plan of care recommend Jevity 1.5 at 50 mL/hr. At refeeding risk, supplement thiamine 100 mg x 5-7 days. Monitor potassium, phosphorus, and magnesium 3.RD to follow [facility]09-04-2022 Note* Nursing Notes - Charline Deleon RN - 06/26/2022 3:39 AM EDT Second assessment done. No changes noted from initial assessment unless noted in chart. Patient is resting, call light within reach. 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 Outcome: Ongoing [facility]09-03-2022 Note* Plan of Care - Trish Marshall RN - 06/25/2022 12:44 PM EDT Problem: Patient Care Overview Goal: Interdisciplinary Rounds/Family Conf Outcome: Met This Shift Problem: Patient Care Overview Goal: Plan of Care Review Outcome: Ongoing Goal: Individualization & Mutuality Outcome: Ongoing Goal: Discharge Needs Assessment Outcome: Ongoing [facility]09-03-2022 Note* Nursing Notes - Aminah Wetzel RN - 06/25/2022 10:27 AM EDT PIV team consulted for lab collection. Labs obtained with ultrasound. SKIP Chambers notified [facility]09-03-2022 Note* Plan of Care - Sai Joyce MD - 06/25/2022 10:16 AM EDT Medicine Follow Up Note: Patient seen this AM. Continues to complain of epigastric pain and poor po intake. Says unable to take po pills or food. Physical exam stable, labs other than elevated LFTs stable. Will follow endo and hepatology recs. Order additional labs and follow RUQ US. Possibly has component of esophagitis and drug-induced liver injury. 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 If it was present then likely resolved on high dose HC. Rec taper down to usual dosing. Suggest HC: 100 q12h -> 50 q8h-> 50 q12->25 q12h then transition to usual oral at 10 mg qam + 10 mg q1pm + 5 mg qhs Hypothyroidism TSH on admission in range Free T4 ordered; result is normal at 1.32 No apparent indication for IV levothyroxine at this time Rec attempt daily oral levothyroxine at home dosing of 137 mcg Monitor free T4 q3days; please call us if it is below range. History of Present Illness: Date of admission: 06/25/2022 Admission diagnosis: SLADE'S CRISIS Sonia Szymanski is a 27 y.o. year old adult who is seen in consultation at the request of Sai Joyce MD for assistance with evaluation of adrenal insufficiency & hypothyroidism and to make treatment recommendations. Sonia Szymanski was interviewed at Sonia Szymanski's bedside in [place] [address]. She is followed at the [facility] for AI and post-surgical hypothyroidism. Sonia Szymanski presented to outside ED with complaint of abdominal pain. Labs on arrival to [facility] include normal sodium and normal potassium. If the abdominal pain had been due to AI then the first injection of the 100 mcg HC would have immediately resolved the pain. She denies missed doses prior to onset of the pain. Since start of pain she has not been able to tolerate her pills. She tells me she vomiting up pills. She tells me she only occ uses marijuana for pain and last used not long prior to onset of this episode of abdominal pain/nausea/vomiting.. No herbs/supplements/CAM. No biotin use. HC is taken as follows: 10 mg q7:30am then 10 mg q12:30-1pm and 5 mg at bedtime. Florinef was added in Aug 2021 due to thirst. levothyroxine is taken daily at 0700. Food is 30-45 min later. No soy products in diet. No hers/supplements and no biotin. She tells me she has not taken any levothyroxine (or food) for 8 days since the onset of the abdominal pain. Past Medical History: Diagnosis Date Adrenal insufficiency (Wabasso's disease) Migraine Postoperative hypothyroidism Past Surgical History: Procedure Laterality Date CHOLECYSTECTOMY LAPAROSCOPIC 06/09/2021 APPENDECTOMY 12/28/2020 HYSTERECTOMY 08/13/2020 THYROIDECTOMY 2016 Social History Tobacco Use Smoking status: Former Smoker Packs/day: 0.50 Types: Cigarettes Smokeless tobacco: Never Used Vaping Use Vaping Use: Never used No family history on file. HOSPITAL MEDS: hydrocortisone sodium succinate PF (SOLU-CORTEF) injection 100 mg Intravenous Q12H ALLERGIES: is allergic to azithromycin, latex, and neosporin [bacitracin- polymyxin b]. INFUSIONS: dextrose 5% and sodium chloride 0.9% 100 mL/hr at 06/25/22 0612 The past family, medical, and social history were otherwise reviewed and documented in the electronic record system. ROS: Pertinent items are noted in the HPI. Sonia Szymanski denies symptoms of hypoglycemia, fatigue, polyuria/polydipsia, blurry vision, chest pain or shortness of breath. Constitutional: Pt denies confusion, changes in mental status, or fatigue. moderate weight change (gain) Skin: Negative for lesions, rashes, sores, discoloration. HENT: Negative for sore throat, dysphagia, odynophagia, dry mouth. Eyes: Negative for double vision, blurring, tearing, loss of vision Cardiovascular: Negative for palpitations, chest pain, claudication. Respiratory: Negative for SOB, NOLAND Gastrointestinal: Negative for nausea, vomiting, diarrhea, constipation. Genitourinary: Negative for bladder incontinence, dysuria, hematuria. No nocturia Physical Exam General/Constitutional: adult, who looks Sonia Szyamnski's stated age of 27 y.o.. No acute distress. Vital Signs: BP 131/78 (BP Location: Left arm, BP Position: Lying) Pulse (!) 42 Comment: SKIP Chambers Notified Temp 97.7 F (36.5 C) (Oral) Resp 18 Wt 82.2 kg (181 lb 4.8 oz) SpO2 93% Smoking Status Former Smoker , Wt Readings from Last 3 Encounters: 06/25/22 82.2 kg (181 lb 4.8 oz) , There is no height or weight on file to calculate BMI. O2 Sat (%): [93 %-95 %] 93 % O2 Device: room air HEENT: Head: Normocephalic and atraumatic. Eyes: Sclerae and conjunctiva are clear. Airway is normal. No exophthalmos. Neck: Supple, non-tender, with no lymphadenopathy. No carotid bruits. Thyroid is not palpated. Cardiac: regular rhythm, normal rate. Pulmonary/Chest: Respirations even and unlabored with normal respiratory effort. Abdominal: Soft, non-tender, non-distended, normoactive bowel sounds. No organomegaly. No lipohypertrophy/lipodystrophy. Musculoskeletal: No bony deformities, normal muscle mass and tone Extremities: No cyanosis or clubbing. no peripheral edema. no tremor. Peripheral Vascular Exam: 2+ dorsalis pedis pulses. Neurological: Conscious, alert and interactive. Achilles tendon reflexes are symmetric. Skin: Skin is warm and dry. No ulcers or lesions on the feet and nails are intact. no nail pitting. Psychiatric: Appropriate mood and affect for Sonia Szymanski's clinical situation. Procedure / Imaging / Lab Data: Pertinent procedure/imaging/lab data was reviewed: Recent Labs 06/25/22 0358 06/25/22 0620 06/25/22 0621 WBC -- -- 11.06* HGB -- -- 12.1 HCT -- -- 37.5* PLATELET -- -- 208 SODIUM -- 136 -- POTASSIUM -- 3.9 -- CHLORIDE -- 100 -- CO2 -- 24 -- BUN -- 10 -- CREATSERUM -- 0.82 -- GLUCOSE 89 73 -- CALCIUM -- 9.0 -- MAGNESIUM -- 1.9 -- AST -- 69* -- ALT -- 365* -- BILIDIRECT -- 0.1 -- BILITOTAL -- 0.7 -- ALKPHOS -- 104 -- ALBUMIN -- 4.0 -- Lab Results Component Value Date TSH 3.994 06/25/2022 No results found for: HGBA1C No results found for: CHOLESTEROL, TRIG, HDL, LDLCALC, LDLDIRECT Lab Results Component Value Date SODIUM 136 06/25/2022 POTASSIUM 3.9 06/25/2022 CHLORIDE 100 06/25/2022 CO2 24 06/25/2022 BUN 10 06/25/2022 CREATSERUM 0.82 06/25/2022 GLUCOSE 73 06/25/2022 Lab Results Component Value Date ALT 365 (H) 06/25/2022 No results found for this or any previous visit. No results found for: [id number] [facility] Work Phone: [phone] 953-397209-03-2022 Consult note* Leatha Taylor MD, PhD - 06/25/2022 8:36 AM EDTAssociated Order(s): IP CONSULT TO ENDOCRINOLOGY - NON DIABETES [facility] Endocrinology Service Consult Assessment / Plan: Wabasso's Disease Current clinical presentation and labs do not suggest adrenal crisis at this time. If it was present then likely resolved on high dose HC. Rec taper down to usual dosing. Suggest HC: 100 q12h -> 50 q8h-> 50 q12->25 q12h then transition to usual oral at 10 mg qam + 10 mg q1pm + 5 mg qhs Hypothyroidism TSH on admission in range Free T4 ordered; result is normal at 1.32 No apparent indication for IV levothyroxine at this time Rec attempt daily oral levothyroxine at home dosing of 137 mcg Monitor free T4 q3days; please call us if it is below range. History of Present Illness: Date of admission: 06/25/2022 Admission diagnosis: SLADE'S CRISIS Sonia Szymanski is a 27 y.o. year old adult who is seen in consultation at the request of Sai Joyce MD for assistance with evaluation of adrenal insufficiency & hypothyroidism and to make treatment recommendations. Sonia Szymanski was interviewed at Sonia Szymanski's bedside in [place] [address]. She is followed at the [facility] for AI and post-surgical hypothyroidism. Sonia Szymanski presented to outside ED with complaint of abdominal pain. Labs on arrival to [facility] include normal sodium and normal potassium. If the abdominal pain had been due to AI then the first injection of the 100 mcg HC would have immediately resolved the pain. She denies missed doses prior to onset of the pain. Since start of pain she has not been able to tolerate her pills. She tells me she vomiting up pills. She tells me she only occ uses marijuana for pain and last used not long prior to onset of this episode of abdominal pain/nausea/vomiting.. No herbs/supplements/CAM. No biotin use. HC is taken as follows: 10 mg q7:30am then 10 mg q12:30-1pm and 5 mg at bedtime. Florinef was added in Aug 2021 due to thirst. levothyroxine is taken daily at 0700. Food is 30-45 min later. No soy products in diet. No hers/supplements and no biotin. She tells me she has not taken any levothyroxine (or food) for 8 days since the onset of the abdominal pain. Past Medical History: Diagnosis Date Adrenal insufficiency (Wabasso's disease) Migraine Postoperative hypothyroidism Past Surgical History: Procedure Laterality Date CHOLECYSTECTOMY LAPAROSCOPIC 06/09/2021 APPENDECTOMY 12/28/2020 HYSTERECTOMY 08/13/2020 THYROIDECTOMY 2016 Social History Tobacco Use Smoking status: Former Smoker Packs/day: 0.50 Types: Cigarettes Smokeless tobacco: Never Used Vaping Use Vaping Use: Never used No family history on file. HOSPITAL MEDS: hydrocortisone sodium succinate PF (SOLU-CORTEF) injection 100 mg Intravenous Q12H ALLERGIES: is allergic to azithromycin, latex, and neosporin [bacitracin- polymyxin b]. INFUSIONS: dextrose 5% and sodium chloride 0.9% 100 mL/hr at 06/25/22 0612 The past family, medical, and social history were otherwise reviewed and documented in the electronic record system. ROS: Pertinent items are noted in the HPI. Sonia Szymanski denies symptoms of hypoglycemia, fatigue, polyuria/polydipsia, blurry vision, chest pain or shortness of breath. Constitutional: Pt denies confusion, changes in mental status, or fatigue. moderate weight change (gain) Skin: Negative for lesions, rashes, sores, discoloration. HENT: Negative for sore throat, dysphagia, odynophagia, dry mouth. Eyes: Negative for double vision, blurring, tearing, loss of vision Cardiovascular: Negative for palpitations, chest pain, claudication. Respiratory: Negative for SOB, NOLAND Gastrointestinal: Negative for nausea, vomiting, diarrhea, constipation. Genitourinary: Negative for bladder incontinence, dysuria, hematuria. No nocturia Physical Exam General/Constitutional: adult, who looks Sonia Szymanski's stated age of 27 y.o.. No acute distress. Vital Signs: BP 131/78 (BP Location: Left arm, BP Position: Lying) Pulse (!) 42 Comment: RN Trish Notified Temp 97.7 F (36.5 C) (Oral) Resp 18 Wt 82.2 kg (181 lb 4.8 oz) SpO2 93% Smoking Status Former Smoker , Wt Readings from Last 3 Encounters: 06/25/22 82.2 kg (181 lb 4.8 oz) , There is no height or weight on file to calculate BMI. O2 Sat (%): [93 %-95 %] 93 % O2 Device: room air HEENT: Head: Normocephalic and atraumatic. Eyes: Sclerae and conjunctiva are clear. Airway is normal. No exophthalmos. Neck: Supple, non-tender, with no lymphadenopathy. No carotid bruits. Thyroid is not palpated. Cardiac: regular rhythm, normal rate. Pulmonary/Chest: Respirations even and unlabored with normal respiratory effort. Abdominal: Soft, non-tender, non-distended, normoactive bowel sounds. No organomegaly. No lipohypertrophy/lipodystrophy. Musculoskeletal: No bony deformities, normal muscle mass and tone Extremities: No cyanosis or clubbing. no peripheral edema. no tremor. Peripheral Vascular Exam: 2+ dorsalis pedis pulses. Neurological: Conscious, alert and interactive. Achilles tendon reflexes are symmetric. Skin: Skin is warm and dry. No ulcers or lesions on the feet and nails are intact. no nail pitting. Psychiatric: Appropriate mood and affect for Sonia Szymanski's clinical situation. Procedure / Imaging / Lab Data: Pertinent procedure/imaging/lab data was reviewed: Recent Labs 06/25/22 0358 06/25/22 0620 06/25/22 0621 WBC -- -- 11.06* HGB -- -- 12.1 HCT -- -- 37.5* PLATELET -- -- 208 SODIUM -- 136 -- POTASSIUM -- 3.9 -- CHLORIDE -- 100 -- CO2 -- 24 -- BUN -- 10 -- CREATSERUM -- 0.82 -- GLUCOSE 89 73 -- CALCIUM -- 9.0 -- MAGNESIUM -- 1.9 -- AST -- 69* -- ALT -- 365* -- BILIDIRECT -- 0.1 -- BILITOTAL -- 0.7 -- ALKPHOS -- 104 -- ALBUMIN -- 4.0 -- Lab Results Component Value Date TSH 3.994 06/25/2022 No results found for: HGBA1C No results found for: CHOLESTEROL, TRIG, HDL, LDLCALC, LDLDIRECT Lab Results Component Value Date SODIUM 136 06/25/2022 POTASSIUM 3.9 06/25/2022 CHLORIDE 100 06/25/2022 CO2 24 06/25/2022 BUN 10 06/25/2022 CREATSERUM 0.82 06/25/2022 GLUCOSE 73 06/25/2022 Lab Results Component Value Date ALT 365 (H) 06/25/2022 No results found for this or any previous visit. No results found for: [id number] * Kody Lua MD - 06/25/2022 7:18 AM EDTAssociated Order(s): IP CONSULT TO GASTROENTEROLOGY [facility] Consult WebExchange --> IM Consult Serv [facility] --> [facility] consult service Fellow GASTROENTEROLOGY INPATIENT CONSULT Referring Provider: Sai Joyce MD Admit Date: 06/25/2022 Reason for Consultation: transaminitis with epigastric pain of unclear etiology, recommendations onfurther workup HISTORY OF PRESENT ILLNESS: Sonia Szymanski is a 27 y.o. 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 We are consulted for evaluation ofabdominal pain and transaminitis. The patient reports a week and half ago she woke up from sleep with excruciating RUQ abdominal pain. She describes the pain as both sharp and dull, intermittent in nature, and worsened with PO intakeand movement. She states since then, the pain has not improved and she has had associated nausea/vomiting with inability to tolerate any PO intake, including medications. A few weeks prior to this, she was treated with multiple antibiotics (can only remember Bactrim as one of them) for a UTI. She has never had symptoms like these before. She also endorses associated dizziness/lightheadedness which she attributes to poor PO intake. She states her seizure disorder is relatively well controlled (last seizure was a few weeks ago). She denies any personal history of liver disease, but does state her mom has fatty liver. She denies any EtOH use or other recreational substances/OTC medications. Notably, the patient had admissions to OSH in November and December for evaluation of similar symptomsincluding acute onset epigastric abdominal pain associated with N/V. She underwent two separate EGDs for these symptoms which showed severe esophagitis, a hiatal hernia, and non-obstructing Schatzki's ring. The patient initially presented to [facility] ED on 06/21 for evaluation of these symptoms. Relevant lab work there notable for VPA level 25.5 (normal 50-100), ACTH <1. LFTs or INR unfortunately are not available for review. Since arrival to [facility], the patient has been afebrile and HDS. Initial lab work notable for WBC 11, Hgb 12, PLT 208, Na 136, AST/ALT 69/365, ALP 104, Tbili 0.7, total protein 7.8, sCr 0.82. PAST MEDICAL HISTORY: PAST MEDICAL HISTORY No past medical history on file. PAST SURGICAL HISTORY No past surgical history on file. CURRENT MEDICATIONS hydrocortisone sodium succinate PF (SOLU-CORTEF) injection 100 mg Intravenous Q12H ALLERGIES Allergies Allergen Reactions Azithromycin Anaphylaxis Latex Swelling Neosporin [Bacitracin-Polymyxin B] Hives SOCIAL HISTORY Sonia Szymanski reports that Sonia Szymanski has quit smoking. Sonia Szymanski's smoking use included cigarettes. Sonia Szymanski smoked 0.50 packs per day. Sonia Szymanski has never used smokeless tobacco. Nohistory on file for alcohol use and drug use. FAMILY HISTORY No family history on file. REVIEW OF SYSTEMS: Review of Systems Constitutional: Negative for chills and fever. Respiratory: Negative for chest tightness and shortness of breath. Cardiovascular: Negative for chest pain and palpitations. Gastrointestinal: Positive for abdominal pain. Negative for diarrhea, nausea and vomiting. Genitourinary: Negative for dysuria and urgency. Neurological: Negative for dizziness and light-headedness. Psychiatric/Behavioral: Negative for agitation and suicidal ideas. The patient is not nervous/anxious. PHYSICAL EXAM: Temp: [97.7 F (36.5 C)] 97.7 F (36.5 C) Pulse (Heart Rate): [47] 47 Resp Rate: [18] 18 BP: (118)/(78) 118/78 O2 Sat (%): [95 %] 95 % Weight: [82.2 kg (181 lb 4.8 oz)] 82.2 kg (181 lb 4.8 oz) Wt Readings from Last 3 Encounters: 06/25/22 82.2 kg (181 lb 4.8 oz) General: No acute distress. Comfortable. HEENT: PER, MMM, OP clear. No scleral icterus. Neck: Neck supple without lymphandenopathy. Respiratory: CTA bilaterally, no wheezes/crackles Cardiovascular: RRR, no m/r/g Abdominal: Soft. + BS. ND. NT. No guarding or rebound. No ascites present Neurological: Alert and oriented to person, place, and time. No gross motor deficit. Extremities: WWP 2+ throughout, no edema Skin: Does not appear jaundiced. No rash or lesion. LABS: CBC: Lab Results Component Value Date WBC 11.06 (H) 06/25/2022 HGB 12.1 06/25/2022 PLATELET 208 06/25/2022 MCV 81.0 06/25/2022 Chemistry: Lab Results Component Value Date SODIUM 136 06/25/2022 POTASSIUM 3.9 06/25/2022 CHLORIDE 100 06/25/2022 CO2 24 06/25/2022 BUN 10 06/25/2022 CREATSERUM 0.82 06/25/2022 GLUCOSE 73 06/25/2022 MAGNESIUM 1.9 06/25/2022 Liver Function Tests: Lab Results Component Value Date ALT 365 (H) 06/25/2022 AST 69 (H) 06/25/2022 ALKPHOS 104 06/25/2022 BILITOTAL 0.7 06/25/2022 BILIDIRECT 0.1 06/25/2022 IMAGING/STUDIES: All relevant imaging and procedures were reviewed. EGD 11/2021: Findings: Severe mucosal changes characterized by erythema and sloughing were found in the middle third of the esophagus and in the lower third of the esophagus. R/O EOE and esophagitis desicans superficialis Impression: - Erythematous mucosa in the esophagus. - No specimens collected. ASSESSMENT AND PLAN: Sonia Szymanski is a 27 y.o. 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 We are consulted for evaluation ofabdominal pain and transaminitis. Overall, the exact etiology of her elevated LFTs is not clear, but we suspect the most likely culprit is antibiotic-induced liver injury given the LFT pattern and timeline. Alternatively, given her history of autoimmune disease, AIH could be a possibility as well. Alternatively, given she has had arecent infection with no change in steroid dosing, it is possible this could be related to an adrenal crisis. In regards to her RUQ abdominal pain, it is unlikely to be related to her transaminitis and we suspect is related to the pain episodes she had back in December for which she already underwent endoscopicevaluation. She does not have a gallbladder, however, post-CCY syndrome could certainly be a possibility (though pain is not classic for bilary colic). IMPRESSION 1. Elevated LFTs 2. RUQ Abdominal Pain 3. 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 Grave's disease s/p total thyroidectomy w/ post-operative hypothyroidism 5. Seizure disorder on AED ASSESSMENT/RECOMMENDATIONS: - Please check SPEP, AMA, BOBBY, ASMA, acute/chronic hepatitis panel, LDH, and CK - Recommend supportive care, PPI BID, and trial of GI cocktail/liquid carafate given history of severe esophagitis - Ok to advance diet as tolerated - Management of AI work up and treatment per Endocrinology - Follow up SAUL US, please also obtain CTAP report - Continue to trend LFTs and INR - We will continue to follow This consult was discussed with Dr. Hopkins, the attending physician. If you have any questions or need any further information, please feel free to contact our consult team. Thank you for this interesting consult and allowing us to participate in the care of Sonia Szymanski Kody Lua MD Division of Gastroenterology, Hepatology, and Nutrition Clinical Fellow PGY-5 For urgent/stat calls 5pm to 7am or all day on the weekend, please page the on- call GI fellow on [employer]. IM Consult Serv [facility] --> [facility] Main STAT/NEW GI consults For follow up questions regarding this patient, contact the East consults fellow or AMBER on [employer]. IM Consult Serv [facility] --> [facility] consult service Fellow or AMBER Associated attestation - Pérez Cordero MD - 06/25/2022 10:33 AM EDT Attending Note: I saw and personally examined the patient on 06/25/[address] Lua. I discussed the findings and therapeutic plan with the fellow. I agree with the history, physical examination, and medical decisions as outlined. Ms Szymanski is here with RUQ abdominal pain and acute liver injury, hepatocellular in nature. Agree with Dr Lua, she had relatively recent CCY and still at risk of bileary stone, although pattern is not classic, we should start with biliary imaging: US vs MRCP (MRCP if ultrasound unable to visualizebile ducts). In addition, she is at risk of autoimmune liver disease from her prior autoimmune diseases, although total protein has been normal. Agree with recommendations to rule out AIH. She is also at risk of DILI from several recent antibiotics. There is a possibility that her numbers are actually trending down, that we do not know since we do not have access to prior labs. Finally, there is a possibility that her pain and her abnormal liver chemistries are unrelated. Particularly in the context of know severe esophagitis on repeated EGD. See Dr Lua's note for more recommendations. We need imaging, hepatitis panel including AIH panel,trend of LFTs/INR, continue therapy with PPI. Diet as tolerated. Pérez Hopkins MD associate professor of biblical studies, Gastroenterology, Hepatology and Nutrition. Pérez Hopkins MD associate professor of biblical studies, Gastroenterology, Hepatology and Nutrition. [facility] in [facility] Consult note* Kody Lua MD - 06/25/2022 7:18 AM EDTAssociated Order(s): IP CONSULT TO GASTROENTEROLOGY [facility] Consult WebExchange --> IM Consult Serv [facility] --> [facility] consult service Fellow GASTROENTEROLOGY INPATIENT CONSULT Referring Provider: Sai Joyce MD Admit Date: 06/25/2022 Reason for Consultation: transaminitis with epigastric pain of unclear etiology, recommendations onfurther workup HISTORY OF PRESENT ILLNESS: Sonia Szymanski is a 27 y.o. 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 We are consulted for evaluation ofabdominal pain and transaminitis. The patient reports a week and half ago she woke up from sleep with excruciating RUQ abdominal pain. She describes the pain as both sharp and dull, intermittent in nature, and worsened with PO intakeand movement. She states since then, the pain has not improved and she has had associated nausea/vomiting with inability to tolerate any PO intake, including medications. A few weeks prior to this, she was treated with multiple antibiotics (can only remember Bactrim as one of them) for a UTI. She has never had symptoms like these before. She also endorses associated dizziness/lightheadedness which she attributes to poor PO intake. She states her seizure disorder is relatively well controlled (last seizure was a few weeks ago). She denies any personal history of liver disease, but does state her mom has fatty liver. She denies any EtOH use or other recreational substances/OTC medications. Notably, the patient had admissions to [facility] in November and December for evaluation of similar symptomsincluding acute onset epigastric abdominal pain associated with N/V. She underwent two separate EGDs for these symptoms which showed severe esophagitis, a hiatal hernia, and non-obstructing Schatzki's ring. The patient initially presented [facility] for evaluation of these symptoms. Relevant lab work there notable for VPA level 25.5 (normal 50-100), ACTH <1. LFTs or INR unfortunately are not available for review. Since arrival to [facility], the patient has been afebrile and HDS. Initial lab work notable for WBC 11, Hgb 12, PLT 208, Na 136, AST/ALT 69/365, ALP 104, Tbili 0.7, total protein 7.8, sCr 0.82. PAST MEDICAL HISTORY: PAST MEDICAL HISTORY No past medical history on file. PAST SURGICAL HISTORY No past surgical history on file. CURRENT MEDICATIONS hydrocortisone sodium succinate PF (SOLU-CORTEF) injection 100 mg Intravenous Q12H ALLERGIES Allergies Allergen Reactions Azithromycin Anaphylaxis Latex Swelling Neosporin [Bacitracin-Polymyxin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 feeling well now that you're home. May I ask you a few questions related to your hospital stay and well-being? Yes Contact with patient post discharge, spoke to patient. Patient identified by name and . Do you feel your health is BETTER, WORSE, or the SAME since leaving the hospital? Same ACTION TAKEN: Patient indicated symptoms are better or same, no action required. Continue outreach. MEDICATIONS: Many patients have questions or concerns about their medications once they are home. Do you have any questions about taking your medications or which medication you should be on? No Do you need any medication refills at this time, including any of the medications you might take only when needed? No ACTION TAKEN: No action required For RNs or Pharmacy completing outreach ONLY, was a medication review completed? Yes SOCIAL: We would like to make sure you have what you need so that your basics needs are met - including your personal safety, food, housing and medications. Would you like to speak with a social work steamblaster to help give you support for any of these needs? No It can be normal to feel anxious or down during a time like this. Would you like to talk to a mental health professional about how you have been feeling? No ACTION TAKEN: No action taken DISCHARGE INTRUCTIONS: Your discharge instructions / After Visit Summary (AVS) are important in guiding you through the recovery process. Do you have any questions related to your discharge instructions? No Do you have all the necessary equipment and supplies at home? Yes ACTION TAKEN: No action required I would like to help you schedule a hospital follow-up virtual or telephone visit with your PCP. This is a great way for you to connect with your provider to ensure you have safely transitioned home.If you are agreeable, I will send your request to a employment services director who will contact and assist you with that appointment. This will give you an opportunity to ask any questions or address any concerns youmay have with your PCP. Inform the patient that if they have any questions or concerns prior to that appointment, to call their PCP's office right away. ACTION TAKEN: Patient desires an appointment - Routed to [facility] [[phone]] for schedulingtelehealth visit (telephonic, virtual visit, or Facetime) within 7 days of discharge with PCP care team. Indicate hospital follow-up appointment needed within 7 days in Provider/FYI box. End Outreach. Your doctor would like us to remind you of the recommendations regarding the coronavirus (Covid19) outbreak: Avoid public places as much as possible. Avoid close contact (within 6 feet) with others you don t live with, especially if they are sick. Stay home if you are sick. Wash your hands regularly for at least 20 seconds with soap and water. Wear a cloth mask in public places to help reduce community spread. Do not go to your Doctor s office unless instructed to do so. For any non- emergency symptoms, call your Doctor s office to get instructions on how to manage (we might recommend a telephone or virtualvisit). For emergency symptoms, proceed to Emergency Department as usual but inform them of cough and fever symptoms ILIA if present (or call on the way if possible). TCM Home Visit Referral Patient transitioned from acute facility: Source of Stratification: [facility] Readmission Risk Score: 13 ROSI Score: 2 Program referral criteria met: Does not meet referral criteria Patient does not qualify for High Risk TCM Home Visit program due to: Does not meet referral criteria Preferred contact number: NA Is patient staying somewhere other than the listed home address: No Hanh Barrera RNliner checker [facility] Miscellaneous Notes* Telephone Encounter - Quinten Blanchard MD - 12/28/2021 10:08 AM EST Looks like Dr Biswas is following her and would continue. No need for Th appt. * Telephone Encounter - Jeanette Warner RN - 12/27/2021 10:13 AM EST See telephone/mychart encounters 12/23/2021 and 12/21/2021 Would you still like pt to be added on? If so can add pt on for at 1 pm vv. * Telephone Encounter - Quinten Blanchard MD - 12/26/2021 6:11 PM EST Please inform upper gastrointestinal biopsies are all benign. 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 Please schedule virtual visit with me this week during fellows clinic so we can discuss further. 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 Serologic workup with positive ASmMuA 1:80, immune to hep B. RUQ US normal. WBC low 2.00, Hgb 11.3 Liver enzymes returned to normal by 07/05/2022 Hx Cholycystectomy 2020 Hx EGD 11/2021 OSH with esophagitis Hx THC use Abdominal cramping 06/27/2017 07/20/2021 Epiglottitis 07/03/2014 07/30/2014 Overview: She has a viral infections that is Last Assessment & Plan: She has been having sore throat since 4 days, Post nasal drainage, Threw up all day Monday, couldn't breathe, also had severe cough. Chest hurting. Went to er , was told she had viral pharyngitis and bronchitis. She cannot swallow at this point, And has trouble breathing. Her saliva is pooling. She also has asthma and doesn't not have a inhaler at this point. 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 Serologic workup with positive ASmMuA 1:80, immune to hep B. RUQ US normal. WBC low 2.00, Hgb 11.3 Liver enzymes returned to normal by 07/05/2022 Hx Cholycystectomy 2020 Hx EGD 11/2021 OSH with esophagitis Hx THC use Abdominal cramping 06/27/2017 07/20/2021 Epiglottitis 07/03/2014 07/30/2014 Overview: She has a viral infections that is Last Assessment & Plan: She has been having sore throat since 4 days, Post nasal drainage, Threw up all day Monday, couldn't breathe, also had severe cough. Chest hurting. Went to er , was told she had viral pharyngitis and bronchitis. She cannot swallow at this point, And has trouble breathing. Her saliva is pooling. She also has asthma and doesn't not have a inhaler at this point. 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 Serologic workup with positive ASmMuA 1:80, immune to hep B. RUQ US normal. WBC low 2.00, Hgb 11.3 Liver enzymes returned to normal by 07/05/2022 Hx Cholycystectomy 2020 Hx EGD 11/2021 OSH with esophagitis Hx THC use Abdominal cramping 06/27/2017 07/20/2021 Epiglottitis 07/03/2014 07/30/2014 Overview: She has a viral infections that is Last Assessment & Plan: She has been having sore throat since 4 days, Post nasal drainage, Threw up all day Monday, couldn't breathe, also had severe cough. Chest hurting. Went to er , was told she had viral pharyngitis and bronchitis. She cannot swallow at this point, And has trouble breathing. Her saliva is pooling. She also has asthma and doesn't not have a inhaler at this point. 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 Serologic workup with positive ASmMuA 1:80, immune to hep B. RUQ US normal. WBC low 2.00, Hgb 11.3 Liver enzymes returned to normal by 07/05/2022 Hx Cholycystectomy 2020 Hx EGD 11/2021 OSH with esophagitis Hx THC use Abdominal cramping 06/27/2017 07/20/2021 Epiglottitis 07/03/2014 07/30/2014 Overview: She has a viral infections that is Last Assessment & Plan: She has been having sore throat since 4 days, Post nasal drainage, Threw up all day Monday, couldn't breathe, also had severe cough. Chest hurting. Went to er , was told she had viral pharyngitis and bronchitis. She cannot swallow at this point, And has trouble breathing. Her saliva is pooling. She also has asthma and doesn't not have a inhaler at this point. 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 Serologic workup with positive ASmMuA 1:80, immune to hep B. RUQ US normal. WBC low 2.00, Hgb 11.3 Liver enzymes returned to normal by 07/05/2022 Hx Cholycystectomy 2020 Hx EGD 11/2021 OSH with esophagitis Hx THC use Abdominal cramping 06/27/2017 07/20/2021 Epiglottitis 07/03/2014 07/30/2014 Overview: She has a viral infections that is Last Assessment & Plan: She has been having sore throat since 4 days, Post nasal drainage, Threw up all day Monday, couldn't breathe, also had severe cough. Chest hurting. Went to er , was told she had viral pharyngitis and bronchitis. She cannot swallow at this point, And has trouble breathing. Her saliva is pooling. She also has asthma and doesn't not have a inhaler at this point. 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 Serologic workup with positive ASmMuA 1:80, immune to hep B. RUQ US normal. WBC low 2.00, Hgb 11.3 Liver enzymes returned to normal by 07/05/2022 Hx Cholycystectomy 2020 Hx EGD 11/2021 OSH with esophagitis Hx THC use Abdominal cramping 06/27/2017 07/20/2021 Epiglottitis 07/03/2014 07/30/2014 Overview: She has a viral infections that is Last Assessment & Plan: She has been having sore throat since 4 days, Post nasal drainage, Threw up all day Monday, couldn't breathe, also had severe cough. Chest hurting. Went to er , was told she had viral pharyngitis and bronchitis. She cannot swallow at this point, And has trouble breathing. Her saliva is pooling. She also has asthma and doesn't not have a inhaler at this point. 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 Serologic workup with positive ASmMuA 1:80, immune to hep B. RUQ US normal. WBC low 2.00, Hgb 11.3 Liver enzymes returned to normal by 07/05/2022 Hx Cholycystectomy 2020 Hx EGD 11/2021 OSH with esophagitis Hx THC use Abdominal cramping 06/27/2017 07/20/2021 Epiglottitis 07/03/2014 07/30/2014 Overview: She has a viral infections that is Last Assessment & Plan: She has been having sore throat since 4 days, Post nasal drainage, Threw up all day Monday, couldn't breathe, also had severe cough. Chest hurting. Went to er , was told she had viral pharyngitis and bronchitis. She cannot swallow at this point, And has trouble breathing. Her saliva is pooling. She also has asthma and doesn't not have a inhaler at this point. 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 Serologic workup with positive ASmMuA 1:80, immune to hep B. RUQ US normal. WBC low 2.00, Hgb 11.3 Liver enzymes returned to normal by 07/05/2022 Hx Cholycystectomy 2020 Hx EGD 11/2021 OSH with esophagitis Hx THC use Abdominal cramping 06/27/2017 07/20/2021 Epiglottitis 07/03/2014 07/30/2014 Overview: She has a viral infections that is Last Assessment & Plan: She has been having sore throat since 4 days, Post nasal drainage, Threw up all day Monday, couldn't breathe, also had severe cough. Chest hurting. Went to er , was told she had viral pharyngitis and bronchitis. She cannot swallow at this point, And has trouble breathing. Her saliva is pooling. She also has asthma and doesn't not have a inhaler at this point. 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 Serologic workup with positive ASmMuA 1:80, immune to hep B. RUQ US normal. WBC low 2.00, Hgb 11.3 Liver enzymes returned to normal by 07/05/2022 Hx Cholycystectomy 2020 Hx EGD 11/2021 OSH with esophagitis Hx THC use Abdominal cramping 06/27/2017 07/20/2021 Epiglottitis 07/03/2014 07/30/2014 Overview: She has a viral infections that is Last Assessment & Plan: She has been having sore throat since 4 days, Post nasal drainage, Threw up all day Monday, couldn't breathe, also had severe cough. Chest hurting. Went to er , was told she had viral pharyngitis and bronchitis. She cannot swallow at this point, And has trouble breathing. Her saliva is pooling. She also has asthma and doesn't not have a inhaler at this point. 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 Serologic workup with positive ASmMuA 1:80, immune to hep B. RUQ US normal. WBC low 2.00, Hgb 11.3 Liver enzymes returned to normal by 07/05/2022 Hx Cholycystectomy 2020 Hx EGD 11/2021 OSH with esophagitis Hx THC use Abdominal cramping 06/27/2017 07/20/2021 Epiglottitis 07/03/2014 07/30/2014 Overview: She has a viral infections that is Last Assessment & Plan: She has been having sore throat since 4 days, Post nasal drainage, Threw up all day Monday, couldn't breathe, also had severe cough. Chest hurting. Went to er , was told she had viral pharyngitis and bronchitis. She cannot swallow at this point, And has trouble breathing. Her saliva is pooling. She also has asthma and doesn't not have a inhaler at this point. 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 Serologic workup with positive ASmMuA 1:80, immune to hep B. RUQ US normal. WBC low 2.00, Hgb 11.3 Liver enzymes returned to normal by 07/05/2022 Hx Cholycystectomy 2020 Hx EGD 11/2021 OSH with esophagitis Hx THC use Abdominal cramping 06/27/2017 07/20/2021 Epiglottitis 07/03/2014 07/30/2014 Overview: She has a viral infections that is Last Assessment & Plan: She has been having sore throat since 4 days, Post nasal drainage, Threw up all day Monday, couldn't breathe, also had severe cough. Chest hurting. Went to er , was told she had viral pharyngitis and bronchitis. She cannot swallow at this point, And has trouble breathing. Her saliva is pooling. She also has asthma and doesn't not have a inhaler at this point. 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 Serologic workup with positive ASmMuA 1:80, immune to hep B. RUQ US normal. WBC low 2.00, Hgb 11.3 Liver enzymes returned to normal by 07/05/2022 Hx Cholycystectomy 2020 Hx EGD 11/2021 OSH with esophagitis Hx THC use Abdominal cramping 06/27/2017 07/20/2021 Epiglottitis 07/03/2014 07/30/2014 Overview: She has a viral infections that is Last Assessment & Plan: She has been having sore throat since 4 days, Post nasal drainage, Threw up all day Monday, couldn't breathe, also had severe cough. Chest hurting. Went to er , was told she had viral pharyngitis and bronchitis. She cannot swallow at this point, And has trouble breathing. Her saliva is pooling. She also has asthma and doesn't not have a inhaler at this point. 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 Serologic workup with positive ASmMuA 1:80, immune to hep B. RUQ US normal. WBC low 2.00, Hgb 11.3 Liver enzymes returned to normal by 07/05/2022 Hx Cholycystectomy 2020 Hx EGD 11/2021 OSH with esophagitis Hx THC use Abdominal cramping 06/27/2017 Epiglottitis 07/03/2014 07/30/2014 Overview: She has a viral infections that is Last Assessment & Plan: She has been having sore throat since 4 days, Post nasal drainage, Threw up all day Monday, couldn't breathe, also had severe cough. Chest hurting. Went to er , was told she had viral pharyngitis and bronchitis. She cannot swallow at this point, And has trouble breathing. Her saliva is pooling. She also has asthma and doesn't not have a inhaler at this point. 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 Serologic workup with positive ASmMuA 1:80, immune to hep B. RUQ US normal. WBC low 2.00, Hgb 11.3 Liver enzymes returned to normal by 07/05/2022 Hx Cholycystectomy 2020 Hx EGD 11/2021 OSH with esophagitis Hx THC use Abdominal cramping 06/27/2017 1 Epiglottitis 07/03/2014 07/30/2014 Overview: She has a viral infections that is Last Assessment & Plan: She has been having sore throat since 4 days, Post nasal drainage, Threw up all day Monday, couldn't breathe, also had severe cough. Chest hurting. Went to er , was told she had viral pharyngitis and bronchitis. She cannot swallow at this point, And has trouble breathing. Her saliva is pooling. She also has asthma and doesn't not have a inhaler at this point. 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 Serologic workup with positive ASmMuA 1:80, immune to hep B. RUQ US normal. WBC low 2.00, Hgb 11.3 Liver enzymes returned to normal by 07/05/2022 Hx Cholycystectomy 2020 Hx EGD 11/2021 OSH with esophagitis Hx THC use Abdominal cramping 06/27/2017 1 Epiglottitis 07/03/2014 07/30/2014 Overview: She has a viral infections that is Last Assessment & Plan: She has been having sore throat since 4 days, Post nasal drainage, Threw up all day Monday, couldn't breathe, also had severe cough. Chest hurting. Went to er , was told she had viral pharyngitis and bronchitis. She cannot swallow at this point, And has trouble breathing. Her saliva is pooling. She also has asthma and doesn't not have a inhaler at this point. 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 Pride 06/25/-07/05/2022 [facility] f/u for N/V, elevated liver enzymes, possible Slade's crisis: ALT 365, AST 69, tbili and ALP normal. Serologic workup with positive ASmMuA 1:80, immune to hep B. RUQ US normal. WBC low 2.00, Hgb 11.3 Liver enzymes returned to normal by 07/05/2022 Hx Cholycystectomy 2020 Hx EGD 11/2021 OSH with esophagitis Hx THC use Abdominal cramping 06/27/2017 Epiglottitis 07/03/2014 07/30/2014 Overview: She has a viral infections that is Last Assessment & Plan: She has been having sore throat since 4 days, Post nasal drainage, Threw up all day Monday, couldn't breathe, also had severe cough. Chest hurting. Went to er , was told she had viral pharyngitis and bronchitis. She cannot swallow at this point, And has trouble breathing. Her saliva is pooling. She also has asthma and doesn't not have a inhaler at this point. 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 Pride 06/25/-07/05/2022 [facility] f/u for N/V, elevated liver enzymes, possible Slade's crisis: ALT 365, AST 69, tbili and ALP normal. Serologic workup with positive ASmMuA 1:80, immune to hep B. RUQ US normal. WBC low 2.00, Hgb 11.3 Liver enzymes returned to normal by 07/05/2022 Hx Cholycystectomy 2020 Hx EGD 11/2021 OSH with esophagitis Hx THC use Abdominal cramping 06/27/2017 1 Epiglottitis 07/03/2014 07/30/2014 Overview: She has a viral infections that is Last Assessment & Plan: She has been having sore throat since 4 days, Post nasal drainage, Threw up all day Monday, couldn't breathe, also had severe cough. Chest hurting. Went to er , was told she had viral pharyngitis and bronchitis. She cannot swallow at this point, And has trouble breathing. Her saliva is pooling. She also has asthma and doesn't not have a inhaler at this point. 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 Serologic workup with positive ASmMuA 1:80, immune to hep B. RUQ US normal. WBC low 2.00, Hgb 11.3 Liver enzymes returned to normal by 07/05/2022 Hx Cholycystectomy 2020 Hx EGD 11/2021 OSH with esophagitis Hx THC use Abdominal cramping 06/27/2017 1 Epiglottitis 07/03/2014 07/30/2014 Overview: She has a viral infections that is Last Assessment & Plan: She has been having sore throat since 4 days, Post nasal drainage, Threw up all day Monday, couldn't breathe, also had severe cough. Chest hurting. Went to er , was told she had viral pharyngitis and bronchitis. She cannot swallow at this point, And has trouble breathing. Her saliva is pooling. She also has asthma and doesn't not have a inhaler at this point. 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 Serologic workup with positive ASmMuA 1:80, immune to hep B. RUQ US normal. WBC low 2.00, Hgb 11.3 Liver enzymes returned to normal by 07/05/2022 Hx Cholycystectomy 2020 Hx EGD 11/2021 OSH with esophagitis Hx THC use Abdominal cramping 06/27/2017 Epiglottitis 07/03/2014 07/30/2014 Overview: She has a viral infections that is Last Assessment & Plan: She has been having sore throat since 4 days, Post nasal drainage, Threw up all day Monday, couldn't breathe, also had severe cough. Chest hurting. Went to er , was told she had viral pharyngitis and bronchitis. She cannot swallow at this point, And has trouble breathing. Her saliva is pooling. She also has asthma and doesn't not have a inhaler at this point. 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 Serologic workup with positive ASmMuA 1:80, immune to hep B. RUQ US normal. WBC low 2.00, Hgb 11.3 Liver enzymes returned to normal by 07/05/2022 Hx Cholycystectomy 2020 Hx EGD 11/2021 OSH with esophagitis Hx THC use Abdominal cramping 06/27/2017 Epiglottitis 07/03/2014 07/30/2014 Overview: She has a viral infections that is Last Assessment & Plan: She has been having sore throat since 4 days, Post nasal drainage, Threw up all day Monday, couldn't breathe, also had severe cough. Chest hurting. Went to er , was told she had viral pharyngitis and bronchitis. She cannot swallow at this point, And has trouble breathing. Her saliva is pooling. She also has asthma and doesn't not have a inhaler at this point. 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 Serologic workup with positive ASmMuA 1:80, immune to hep B. RUQ US normal. WBC low 2.00, Hgb 11.3 Liver enzymes returned to normal by 07/05/2022 Hx Cholycystectomy 2020 Hx EGD 11/2021 OSH with esophagitis Hx THC use Abdominal cramping 06/27/2017 1 Epiglottitis 07/03/2014 07/30/2014 Overview: She has a viral infections that is Last Assessment & Plan: She has been having sore throat since 4 days, Post nasal drainage, Threw up all day Monday, couldn't breathe, also had severe cough. Chest hurting. Went to er , was told she had viral pharyngitis and bronchitis. She cannot swallow at this point, And has trouble breathing. Her saliva is pooling. She also has asthma and doesn't not have a inhaler at this point. 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 Serologic workup with positive ASmMuA 1:80, immune to hep B. RUQ US normal. WBC low 2.00, Hgb 11.3 Liver enzymes returned to normal by 07/05/2022 Hx Cholycystectomy 2020 Hx EGD 11/2021 OSH with esophagitis Hx THC use Abdominal cramping 06/27/2017 1 Epiglottitis 07/03/2014 07/30/2014 Overview: She has a viral infections that is Last Assessment & Plan: She has been having sore throat since 4 days, Post nasal drainage, Threw up all day Monday, couldn't breathe, also had severe cough. Chest hurting. Went to er , was told she had viral pharyngitis and bronchitis. She cannot swallow at this point, And has trouble breathing. Her saliva is pooling. She also has asthma and doesn't not have a inhaler at this point. 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 Serologic workup with positive ASmMuA 1:80, immune to hep B. RUQ US normal. WBC low 2.00, Hgb 11.3 Liver enzymes returned to normal by 07/05/2022 Hx Cholycystectomy 2020 Hx EGD 11/2021 OSH with esophagitis Hx THC use Abdominal cramping 06/27/2017 Epiglottitis 07/03/2014 07/30/2014 Overview: She has a viral infections that is Last Assessment & Plan: She has been having sore throat since 4 days, Post nasal drainage, Threw up all day Monday, couldn't breathe, also had severe cough. Chest hurting. Went to er , was told she had viral pharyngitis and bronchitis. She cannot swallow at this point, And has trouble breathing. Her saliva is pooling. She also has asthma and doesn't not have a inhaler at this point. 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 Serologic workup with positive ASmMuA 1:80, immune to hep B. RUQ US normal. WBC low 2.00, Hgb 11.3 Liver enzymes returned to normal by 07/05/2022 Hx Cholycystectomy 2020 Hx EGD 11/2021 OSH with esophagitis Hx THC use Abdominal cramping 06/27/2017 1 Epiglottitis 07/03/2014 07/30/2014 Overview: She has a viral infections that is Last Assessment & Plan: She has been having sore throat since 4 days, Post nasal drainage, Threw up all day Monday, couldn't breathe, also had severe cough. Chest hurting. Went to er , was told she had viral pharyngitis and bronchitis. She cannot swallow at this point, And has trouble breathing. Her saliva is pooling. She also has asthma and doesn't not have a inhaler at this point. 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 Serologic workup with positive ASmMuA 1:80, immune to hep B. RUQ US normal. WBC low 2.00, Hgb 11.3 Liver enzymes returned to normal by 07/05/2022 Hx Cholycystectomy 2020 Hx EGD 11/2021 OSH with esophagitis Hx THC use Abdominal cramping 06/27/2017 1 Epiglottitis 07/03/2014 07/30/2014 Overview: She has a viral infections that is Last Assessment & Plan: She has been having sore throat since 4 days, Post nasal drainage, Threw up all day Monday, couldn't breathe, also had severe cough. Chest hurting. Went to er , was told she had viral pharyngitis and bronchitis. She cannot swallow at this point, And has trouble breathing. Her saliva is pooling. She also has asthma and doesn't not have a inhaler at this point. 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 Serologic workup with positive ASmMuA 1:80, immune to hep B. RUQ US normal. WBC low 2.00, Hgb 11.3 Liver enzymes returned to normal by 07/05/2022 Hx Cholycystectomy 2020 Hx EGD 11/2021 OSH with esophagitis Hx THC use Abdominal cramping 06/27/2017 Epiglottitis 07/03/2014 07/30/2014 Overview: She has a viral infections that is Last Assessment & Plan: She has been having sore throat since 4 days, Post nasal drainage, Threw up all day Monday, couldn't breathe, also had severe cough. Chest hurting. Went to er , was told she had viral pharyngitis and bronchitis. She cannot swallow at this point, And has trouble breathing. Her saliva is pooling. She also has asthma and doesn't not have a inhaler at this point. 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 Serologic workup with positive ASmMuA 1:80, immune to hep B. RUQ US normal. WBC low 2.00, Hgb 11.3 Liver enzymes returned to normal by 07/05/2022 Hx Cholycystectomy 2020 Hx EGD 11/2021 OSH with esophagitis Hx THC use Abdominal cramping 06/27/2017 Epiglottitis 07/03/2014 07/30/2014 Overview: She has a viral infections that is Last Assessment & Plan: She has been having sore throat since 4 days, Post nasal drainage, Threw up all day Monday, couldn't breathe, also had severe cough. Chest hurting. Went to er , was told she had viral pharyngitis and bronchitis. She cannot swallow at this point, And has trouble breathing. Her saliva is pooling. She also has asthma and doesn't not have a inhaler at this point. 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 Serologic workup with positive ASmMuA 1:80, immune to hep B. RUQ US normal. WBC low 2.00, Hgb 11.3 Liver enzymes returned to normal by 07/05/2022 Hx Cholycystectomy 2020 Hx EGD 11/2021 OSH with esophagitis Hx THC use Abdominal cramping 06/27/2017 1 Epiglottitis 07/03/2014 07/30/2014 Overview: She has a viral infections that is Last Assessment & Plan: She has been having sore throat since 4 days, Post nasal drainage, Threw up all day Monday, couldn't breathe, also had severe cough. Chest hurting. Went to er , was told she had viral pharyngitis and bronchitis. She cannot swallow at this point, And has trouble breathing. Her saliva is pooling. She also has asthma and doesn't not have a inhaler at this point. 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 Serologic workup with positive ASmMuA 1:80, immune to hep B. RUQ US normal. WBC low 2.00, Hgb 11.3 Liver enzymes returned to normal by 07/05/2022 Hx Cholycystectomy 2020 Hx EGD 11/2021 OSH with esophagitis Hx THC use Abdominal cramping 06/27/2017 1 Epiglottitis 07/03/2014 07/30/2014 Overview: She has a viral infections that is Last Assessment & Plan: She has been having sore throat since 4 days, Post nasal drainage, Threw up all day Monday, couldn't breathe, also had severe cough. Chest hurting. Went to er , was told she had viral pharyngitis and bronchitis. She cannot swallow at this point, And has trouble breathing. Her saliva is pooling. She also has asthma and doesn't not have a inhaler at this point. 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 Serologic workup with positive ASmMuA 1:80, immune to hep B. RUQ US normal. WBC low 2.00, Hgb 11.3 Liver enzymes returned to normal by 07/05/2022 Hx Cholycystectomy 2020 Hx EGD 11/2021 OSH with esophagitis Hx THC use Abdominal cramping 06/27/2017 Epiglottitis 07/03/2014 07/30/2014 Overview: She has a viral infections that is Last Assessment & Plan: She has been having sore throat since 4 days, Post nasal drainage, Threw up all day Monday, couldn't breathe, also had severe cough. Chest hurting. Went to er , was told she had viral pharyngitis and bronchitis. She cannot swallow at this point, And has trouble breathing. Her saliva is pooling. She also has asthma and doesn't not have a inhaler at this point. 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 Serologic workup with positive ASmMuA 1:80, immune to hep B. RUQ US normal. WBC low 2.00, Hgb 11.3 Liver enzymes returned to normal by 07/05/2022 Hx Cholycystectomy 2020 Hx EGD 11/2021 OSH with esophagitis Hx THC use Abdominal cramping 06/27/2017 1 Epiglottitis 07/03/2014 07/30/2014 Overview: She has a viral infections that is Last Assessment & Plan: She has been having sore throat since 4 days, Post nasal drainage, Threw up all day Monday, couldn't breathe, also had severe cough. Chest hurting. Went to er , was told she had viral pharyngitis and bronchitis. She cannot swallow at this point, And has trouble breathing. Her saliva is pooling. She also has asthma and doesn't not have a inhaler at this point. 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 Serologic workup with positive ASmMuA 1:80, immune to hep B. RUQ US normal. WBC low 2.00, Hgb 11.3 Liver enzymes returned to normal by 07/05/2022 Hx Cholycystectomy 2020 Hx EGD 11/2021 OSH with esophagitis Hx THC use Abdominal cramping 06/27/2017 1 Epiglottitis 07/03/2014 07/30/2014 Overview: She has a viral infections that is Last Assessment & Plan: She has been having sore throat since 4 days, Post nasal drainage, Threw up all day Monday, couldn't breathe, also had severe cough. Chest hurting. Went to er , was told she had viral pharyngitis and bronchitis. She cannot swallow at this point, And has trouble breathing. Her saliva is pooling. She also has asthma and doesn't not have a inhaler at this point. 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 Serologic workup with positive ASmMuA 1:80, immune to hep B. RUQ US normal. WBC low 2.00, Hgb 11.3 Liver enzymes returned to normal by 07/05/2022 Hx Cholycystectomy 2020 Hx EGD 11/2021 OSH with esophagitis Hx THC use Abdominal cramping 06/27/2017 1 Epiglottitis 07/03/2014 07/30/2014 Overview: She has a viral infections that is Last Assessment & Plan: She has been having sore throat since 4 days, Post nasal drainage, Threw up all day Monday, couldn't breathe, also had severe cough. Chest hurting. Went to er , was told she had viral pharyngitis and bronchitis. She cannot swallow at this point, And has trouble breathing. Her saliva is pooling. She also has asthma and doesn't not have a inhaler at this point. 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 Serologic workup with positive ASmMuA 1:80, immune to hep B. RUQ US normal. WBC low 2.00, Hgb 11.3 Liver enzymes returned to normal by 07/05/2022 Hx Cholycystectomy 2020 Hx EGD 11/2021 OSH with esophagitis Hx THC use Abdominal cramping 06/27/2017 Epiglottitis 07/03/2014 07/30/2014 Overview: She has a viral infections that is Last Assessment & Plan: She has been having sore throat since 4 days, Post nasal drainage, Threw up all day Monday, couldn't breathe, also had severe cough. Chest hurting. Went to er , was told she had viral pharyngitis and bronchitis. She cannot swallow at this point, And has trouble breathing. Her saliva is pooling. She also has asthma and doesn't not have a inhaler at this point. 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 Serologic workup with positive ASmMuA 1:80, immune to hep B. RUQ US normal. WBC low 2.00, Hgb 11.3 Liver enzymes returned to normal by 07/05/2022 Hx Cholycystectomy 2020 Hx EGD 11/2021 OSH with esophagitis Hx THC use Abdominal cramping 06/27/2017 1 Epiglottitis 07/03/2014 07/30/2014 Overview: She has a viral infections that is Last Assessment & Plan: She has been having sore throat since 4 days, Post nasal drainage, Threw up all day Monday, couldn't breathe, also had severe cough. Chest hurting. Went to er , was told she had viral pharyngitis and bronchitis. She cannot swallow at this point, And has trouble breathing. Her saliva is pooling. She also has asthma and doesn't not have a inhaler at this point. 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 Serologic workup with positive ASmMuA 1:80, immune to hep B. RUQ US normal. WBC low 2.00, Hgb 11.3 Liver enzymes returned to normal by 07/05/2022 Hx Cholycystectomy 2020 Hx EGD 11/2021 OSH with esophagitis Hx THC use Abdominal cramping 06/27/2017 1 Epiglottitis 07/03/2014 07/30/2014 Overview: She has a viral infections that is Last Assessment & Plan: She has been having sore throat since 4 days, Post nasal drainage, Threw up all day Monday, couldn't breathe, also had severe cough. Chest hurting. Went to er , was told she had viral pharyngitis and bronchitis. She cannot swallow at this point, And has trouble breathing. Her saliva is pooling. She also has asthma and doesn't not have a inhaler at this point. 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 Serologic workup with positive ASmMuA 1:80, immune to hep B. RUQ US normal. WBC low 2.00, Hgb 11.3 Liver enzymes returned to normal by 07/05/2022 Hx Cholycystectomy 2020 Hx EGD 11/2021 OSH with esophagitis Hx THC use Abdominal cramping 06/27/2017 Epiglottitis 07/03/2014 07/30/2014 Overview: She has a viral infections that is Last Assessment & Plan: She has been having sore throat since 4 days, Post nasal drainage, Threw up all day Monday, couldn't breathe, also had severe cough. Chest hurting. Went to er , was told she had viral pharyngitis and bronchitis. She cannot swallow at this point, And has trouble breathing. Her saliva is pooling. She also has asthma and doesn't not have a inhaler at this point. 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 Serologic workup with positive ASmMuA 1:80, immune to hep B. RUQ US normal. WBC low 2.00, Hgb 11.3 Liver enzymes returned to normal by 07/05/2022 Hx Cholycystectomy 2020 Hx EGD 11/2021 OSH with esophagitis Hx THC use Abdominal cramping 06/27/2017 Epiglottitis 07/03/2014 07/30/2014 Overview: She has a viral infections that is Last Assessment & Plan: She has been having sore throat since 4 days, Post nasal drainage, Threw up all day Monday, couldn't breathe, also had severe cough. Chest hurting. Went to er , was told she had viral pharyngitis and bronchitis. She cannot swallow at this point, And has trouble breathing. Her saliva is pooling. She also has asthma and doesn't not have a inhaler at this point. 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 Serologic workup with positive ASmMuA 1:80, immune to hep B. RUQ US normal. WBC low 2.00, Hgb 11.3 Liver enzymes returned to normal by 07/05/2022 Hx Cholycystectomy 2020 Hx EGD 11/2021 OSH with esophagitis Hx THC use Abdominal cramping 06/27/2017 1 Epiglottitis 07/03/2014 07/30/2014 Overview: She has a viral infections that is Last Assessment & Plan: She has been having sore throat since 4 days, Post nasal drainage, Threw up all day Monday, couldn't breathe, also had severe cough. Chest hurting. Went to er , was told she had viral pharyngitis and bronchitis. She cannot swallow at this point, And has trouble breathing. Her saliva is pooling. She also has asthma and doesn't not have a inhaler at this point. 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 Serologic workup with positive ASmMuA 1:80, immune to hep B. RUQ US normal. WBC low 2.00, Hgb 11.3 Liver enzymes returned to normal by 07/05/2022 Hx Cholycystectomy 2020 Hx EGD 11/2021 OSH with esophagitis Hx THC use Abdominal cramping 06/27/2017 1 Epiglottitis 07/03/2014 07/30/2014 Overview: She has a viral infections that is Last Assessment & Plan: She has been having sore throat since 4 days, Post nasal drainage, Threw up all day Monday, couldn't breathe, also had severe cough. Chest hurting. Went to er , was told she had viral pharyngitis and bronchitis. She cannot swallow at this point, And has trouble breathing. Her saliva is pooling. She also has asthma and doesn't not have a inhaler at this point. 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 Serologic workup with positive ASmMuA 1:80, immune to hep B. RUQ US normal. WBC low 2.00, Hgb 11.3 Liver enzymes returned to normal by 07/05/2022 Hx Cholycystectomy 2020 Hx EGD 11/2021 OSH with esophagitis Hx THC use Abdominal cramping 06/27/2017 Epiglottitis 07/03/2014 07/30/2014 Overview: She has a viral infections that is Last Assessment & Plan: She has been having sore throat since 4 days, Post nasal drainage, Threw up all day Monday, couldn't breathe, also had severe cough. Chest hurting. Went to er , was told she had viral pharyngitis and bronchitis. She cannot swallow at this point, And has trouble breathing. Her saliva is pooling. She also has asthma and doesn't not have a inhaler at this point. 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 Serologic workup with positive ASmMuA 1:80, immune to hep B. RUQ US normal. WBC low 2.00, Hgb 11.3 Liver enzymes returned to normal by 07/05/2022 Hx Cholycystectomy 2020 Hx EGD 11/2021 OSH with esophagitis Hx THC use Abdominal cramping 06/27/2017 1 Epiglottitis 07/03/2014 07/30/2014 Overview: She has a viral infections that is Last Assessment & Plan: She has been having sore throat since 4 days, Post nasal drainage, Threw up all day Monday, couldn't breathe, also had severe cough. Chest hurting. Went to er , was told she had viral pharyngitis and bronchitis. She cannot swallow at this point, And has trouble breathing. Her saliva is pooling. She also has asthma and doesn't not have a inhaler at this point. 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 Serologic workup with positive ASmMuA 1:80, immune to hep B. RUQ US normal. WBC low 2.00, Hgb 11.3 Liver enzymes returned to normal by 07/05/2022 Hx Cholycystectomy 2020 Hx EGD 11/2021 OSH with esophagitis Hx THC use Abdominal cramping 06/27/2017 1 Epiglottitis 07/03/2014 07/30/2014 Overview: She has a viral infections that is Last Assessment & Plan: She has been having sore throat since 4 days, Post nasal drainage, Threw up all day Monday, couldn't breathe, also had severe cough. Chest hurting. Went to er , was told she had viral pharyngitis and bronchitis. She cannot swallow at this point, And has trouble breathing. Her saliva is pooling. She also has asthma and doesn't not have a inhaler at this point. 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 Serologic workup with positive ASmMuA 1:80, immune to hep B. RUQ US normal. WBC low 2.00, Hgb 11.3 Liver enzymes returned to normal by 07/05/2022 Hx Cholycystectomy 2020 Hx EGD 11/2021 OSH with esophagitis Hx THC use Abdominal cramping 06/27/2017 Epiglottitis 07/03/2014 07/30/2014 Overview: She has a viral infections that is Last Assessment & Plan: She has been having sore throat since 4 days, Post nasal drainage, Threw up all day Monday, couldn't breathe, also had severe cough. Chest hurting. Went to er , was told she had viral pharyngitis and bronchitis. She cannot swallow at this point, And has trouble breathing. Her saliva is pooling. She also has asthma and doesn't not have a inhaler at this point. 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 Serologic workup with positive ASmMuA 1:80, immune to hep B. RUQ US normal. WBC low 2.00, Hgb 11.3 Liver enzymes returned to normal by 07/05/2022 Hx Cholycystectomy 2020 Hx EGD 11/2021 OSH with esophagitis Hx THC use Abdominal cramping 06/27/2017 Epiglottitis 07/03/2014 07/30/2014 Overview: She has a viral infections that is Last Assessment & Plan: She has been having sore throat since 4 days, Post nasal drainage, Threw up all day Monday, couldn't breathe, also had severe cough. Chest hurting. Went to er , was told she had viral pharyngitis and bronchitis. She cannot swallow at this point, And has trouble breathing. Her saliva is pooling. She also has asthma and doesn't not have a inhaler at this point. 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 Serologic workup with positive ASmMuA 1:80, immune to hep B. RUQ US normal. WBC low 2.00, Hgb 11.3 Liver enzymes returned to normal by 07/05/2022 Hx Cholycystectomy 2021 Hx EGD 11/2021 OSH with esophagitis Hx THC use Abdominal cramping 06/27/2017 Epiglottitis 07/03/2014 07/30/2014 Overview: She has a viral infections that is Last Assessment & Plan: She has been having sore throat since 4 days, Post nasal drainage, Threw up all day Monday, couldn't breathe, also had severe cough. Chest hurting. Went to er , was told she had viral pharyngitis and bronchitis. She cannot swallow at this point, And has trouble breathing. Her saliva is pooling. She also has asthma and doesn't not have a inhaler at this point. 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 Serologic workup with positive ASmMuA 1:80, immune to hep B. RUQ US normal. WBC low 2.00, Hgb 11.3 Liver enzymes returned to normal by 07/05/2022 Hx Cholycystectomy 2020 Hx EGD 11/2021 OSH with esophagitis Hx THC use Abdominal cramping 06/27/2017 07/20/2021 Epiglottitis 07/03/2014 07/30/2014 Overview: She has a viral infections that is Last Assessment & Plan: She has been having sore throat since 4 days, Post nasal drainage, Threw up all day Monday, couldn't breathe, also had severe cough. Chest hurting. Went to er , was told she had viral pharyngitis and bronchitis. She cannot swallow at this point, And has trouble breathing. Her saliva is pooling. She also has asthma and doesn't not have a inhaler at this point. 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 Serologic workup with positive ASmMuA 1:80, immune to hep B. RUQ US normal. WBC low 2.00, Hgb 11.3 Liver enzymes returned to normal by 07/05/2022 Hx Cholycystectomy 2020 Hx EGD 11/2021 OSH with esophagitis Hx THC use Abdominal cramping 06/27/2017 07/20/2021 Epiglottitis 07/03/2014 07/30/2014 Overview: She has a viral infections that is Last Assessment & Plan: She has been having sore throat since 4 days, Post nasal drainage, Threw up all day Monday, couldn't breathe, also had severe cough. Chest hurting. Went to er , was told she had viral pharyngitis and bronchitis. She cannot swallow at this point, And has trouble breathing. Her saliva is pooling. She also has asthma and doesn't not have a inhaler at this point. 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 Serologic workup with positive ASmMuA 1:80, immune to hep B. RUQ US normal. WBC low 2.00, Hgb 11.3 Liver enzymes returned to normal by 07/05/2022 Hx Cholycystectomy 2020 Hx EGD 11/2021 OSH with esophagitis Hx THC use Abdominal cramping 06/27/2017 07/20/2021 Epiglottitis 07/03/2014 07/30/2014 Overview: She has a viral infections that is Last Assessment & Plan: She has been having sore throat since 4 days, Post nasal drainage, Threw up all day Monday, couldn't breathe, also had severe cough. Chest hurting. Went to er , was told she had viral pharyngitis and bronchitis. She cannot swallow at this point, And has trouble breathing. Her saliva is pooling. She also has asthma and doesn't not have a inhaler at this point. 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 Serologic workup with positive ASmMuA 1:80, immune to hep B. RUQ US normal. WBC low 2.00, Hgb 11.3 Liver enzymes returned to normal by 07/05/2022 Hx Cholycystectomy 2020 Hx EGD 11/2021 OSH with esophagitis Hx THC use Abdominal cramping 06/27/2017 07/20/2021 Epiglottitis 07/03/2014 07/30/2014 Overview: She has a viral infections that is Last Assessment & Plan: She has been having sore throat since 4 days, Post nasal drainage, Threw up all day Monday, couldn't breathe, also had severe cough. Chest hurting. Went to er , was told she had viral pharyngitis and bronchitis. She cannot swallow at this point, And has trouble breathing. Her saliva is pooling. She also has asthma and doesn't not have a inhaler at this point. 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 Serologic workup with positive ASmMuA 1:80, immune to hep B. RUQ US normal. WBC low 2.00, Hgb 11.3 Liver enzymes returned to normal by 07/05/2022 Hx Cholycystectomy 2020 Hx EGD 11/2021 OSH with esophagitis Hx THC use Abdominal cramping 06/27/2017 07/20/2021 Epiglottitis 07/03/2014 07/30/2014 Overview: She has a viral infections that is Last Assessment & Plan: She has been having sore throat since 4 days, Post nasal drainage, Threw up all day Monday, couldn't breathe, also had severe cough. Chest hurting. Went to er , was told she had viral pharyngitis and bronchitis. She cannot swallow at this point, And has trouble breathing. Her saliva is pooling. She also has asthma and doesn't not have a inhaler at this point. 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 Serologic workup with positive ASmMuA 1:80, immune to hep B. RUQ US normal. WBC low 2.00, Hgb 11.3 Liver enzymes returned to normal by 07/05/2022 Hx Cholycystectomy 2020 Hx EGD 11/2021 OSH with esophagitis Hx THC use Abdominal cramping 06/27/2017 07/20/2021 Epiglottitis 07/03/2014 07/30/2014 Overview: She has a viral infections that is Last Assessment & Plan: She has been having sore throat since 4 days, Post nasal drainage, Threw up all day Monday, couldn't breathe, also had severe cough. Chest hurting. Went to er , was told she had viral pharyngitis and bronchitis. She cannot swallow at this point, And has trouble breathing. Her saliva is pooling. She also has asthma and doesn't not have a inhaler at this point. 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 Serologic workup with positive ASmMuA 1:80, immune to hep B. RUQ US normal. WBC low 2.00, Hgb 11.3 Liver enzymes returned to normal by 07/05/2022 Hx Cholycystectomy 2020 Hx EGD 11/2021 OSH with esophagitis Hx THC use Abdominal cramping 06/27/2017 07/20/2021 Epiglottitis 07/03/2014 07/30/2014 Overview: She has a viral infections that is Last Assessment & Plan: She has been having sore throat since 4 days, Post nasal drainage, Threw up all day Monday, couldn't breathe, also had severe cough. Chest hurting. Went to er , was told she had viral pharyngitis and bronchitis. She cannot swallow at this point, And has trouble breathing. Her saliva is pooling. She also has asthma and doesn't not have a inhaler at this point. 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 Serologic workup with positive ASmMuA 1:80, immune to hep B. RUQ US normal. WBC low 2.00, Hgb 11.3 Liver enzymes returned to normal by 07/05/2022 Hx Cholycystectomy 2020 Hx EGD 11/2021 OSH with esophagitis Hx THC use Abdominal cramping 06/27/2017 07/20/2021 Epiglottitis 07/03/2014 07/30/2014 Overview: She has a viral infections that is Last Assessment & Plan: She has been having sore throat since 4 days, Post nasal drainage, Threw up all day Monday, couldn't breathe, also had severe cough. Chest hurting. Went to er , was told she had viral pharyngitis and bronchitis. She cannot swallow at this point, And has trouble breathing. Her saliva is pooling. She also has asthma and doesn't not have a inhaler at this point. 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 Serologic workup with positive ASmMuA 1:80, immune to hep B. RUQ US normal. WBC low 2.00, Hgb 11.3 Liver enzymes returned to normal by 07/05/2022 Hx Cholycystectomy 2020 Hx EGD 11/2021 OSH with esophagitis Hx THC use Abdominal cramping 06/27/2017 07/20/2021 Epiglottitis 07/03/2014 07/30/2014 Overview: She has a viral infections that is Last Assessment & Plan: She has been having sore throat since 4 days, Post nasal drainage, Threw up all day Monday, couldn't breathe, also had severe cough. Chest hurting. Went to er , was told she had viral pharyngitis and bronchitis. She cannot swallow at this point, And has trouble breathing. Her saliva is pooling. She also has asthma and doesn't not have a inhaler at this point. 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 Serologic workup with positive ASmMuA 1:80, immune to hep B. RUQ US normal. WBC low 2.00, Hgb 11.3 Liver enzymes returned to normal by 07/05/2022 Hx Cholycystectomy 2020 Hx EGD 11/2021 OSH with esophagitis Hx THC use Abdominal cramping 06/27/2017 07/20/2021 Epiglottitis 07/03/2014 07/30/2014 Overview: She has a viral infections that is Last Assessment & Plan: She has been having sore throat since 4 days, Post nasal drainage, Threw up all day Monday, couldn't breathe, also had severe cough. Chest hurting. Went to er , was told she had viral pharyngitis and bronchitis. She cannot swallow at this point, And has trouble breathing. Her saliva is pooling. She also has asthma and doesn't not have a inhaler at this point. 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 Serologic workup with positive ASmMuA 1:80, immune to hep B. RUQ US normal. WBC low 2.00, Hgb 11.3 Liver enzymes returned to normal by 07/05/2022 Hx Cholycystectomy 2020 Hx EGD 11/2021 OSH with esophagitis Hx THC use Abdominal cramping 06/27/2017 07/20/2021 Epiglottitis 07/03/2014 07/30/2014 Overview: She has a viral infections that is Last Assessment & Plan: She has been having sore throat since 4 days, Post nasal drainage, Threw up all day Monday, couldn't breathe, also had severe cough. Chest hurting. Went to er , was told she had viral pharyngitis and bronchitis. She cannot swallow at this point, And has trouble breathing. Her saliva is pooling. She also has asthma and doesn't not have a inhaler at this point. 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 Serologic workup with positive ASmMuA 1:80, immune to hep B. RUQ US normal. WBC low 2.00, Hgb 11.3 Liver enzymes returned to normal by 07/05/2022 Hx Cholycystectomy 2020 Hx EGD 11/2021 OSH with esophagitis Hx THC use Abdominal cramping 06/27/2017 07/20/2021 Epiglottitis 07/03/2014 07/30/2014 Overview: She has a viral infections that is Last Assessment & Plan: She has been having sore throat since 4 days, Post nasal drainage, Threw up all day Monday, couldn't breathe, also had severe cough. Chest hurting. Went to er , was told she had viral pharyngitis and bronchitis. She cannot swallow at this point, And has trouble breathing. Her saliva is pooling. She also has asthma and doesn't not have a inhaler at this point. 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 Serologic workup with positive ASmMuA 1:80, immune to hep B. RUQ US normal. WBC low 2.00, Hgb 11.3 Liver enzymes returned to normal by 07/05/2022 Hx Cholycystectomy 2020 Hx EGD 11/2021 OSH with esophagitis Hx THC use Abdominal cramping 06/27/2017 07/20/2021 Epiglottitis 07/03/2014 07/30/2014 Overview: She has a viral infections that is Last Assessment & Plan: She has been having sore throat since 4 days, Post nasal drainage, Threw up all day Monday, couldn't breathe, also had severe cough. Chest hurting. Went to er , was told she had viral pharyngitis and bronchitis. She cannot swallow at this point, And has trouble breathing. Her saliva is pooling. She also has asthma and doesn't not have a inhaler at this point. 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 Serologic workup with positive ASmMuA 1:80, immune to hep B. RUQ US normal. WBC low 2.00, Hgb 11.3 Liver enzymes returned to normal by 07/05/2022 Hx Cholycystectomy 2020 Hx EGD 11/2021 OSH with esophagitis Hx THC use Abdominal cramping 06/27/2017 07/20/2021 Epiglottitis 07/03/2014 07/30/2014 Overview: She has a viral infections that is Last Assessment & Plan: She has been having sore throat since 4 days, Post nasal drainage, Threw up all day Monday, couldn't breathe, also had severe cough. Chest hurting. Went to er , was told she had viral pharyngitis and bronchitis. She cannot swallow at this point, And has trouble breathing. Her saliva is pooling. She also has asthma and doesn't not have a inhaler at this point. 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 Serologic workup with positive ASmMuA 1:80, immune to hep B. RUQ US normal. WBC low 2.00, Hgb 11.3 Liver enzymes returned to normal by 07/05/2022 Hx Cholycystectomy 2020 Hx EGD 11/2021 OSH with esophagitis Hx THC use Abdominal cramping 06/27/2017 07/20/2021 Epiglottitis 07/03/2014 07/30/2014 Overview: She has a viral infections that is Last Assessment & Plan: She has been having sore throat since 4 days, Post nasal drainage, Threw up all day Monday, couldn't breathe, also had severe cough. Chest hurting. Went to er , was told she had viral pharyngitis and bronchitis. She cannot swallow at this point, And has trouble breathing. Her saliva is pooling. She also has asthma and doesn't not have a inhaler at this point. 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 Serologic workup with positive ASmMuA 1:80, immune to hep B. RUQ US normal. WBC low 2.00, Hgb 11.3 Liver enzymes returned to normal by 07/05/2022 Hx Cholycystectomy 2020 Hx EGD 11/2021 OSH with esophagitis Hx THC use Abdominal cramping 06/27/2017 07/20/2021 Epiglottitis 07/03/2014 07/30/2014 Overview: She has a viral infections that is Last Assessment & Plan: She has been having sore throat since 4 days, Post nasal drainage, Threw up all day Monday, couldn't breathe, also had severe cough. Chest hurting. Went to er , was told she had viral pharyngitis and bronchitis. She cannot swallow at this point, And has trouble breathing. Her saliva is pooling. She also has asthma and doesn't not have a inhaler at this point. 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 Serologic workup with positive ASmMuA 1:80, immune to hep B. RUQ US normal. WBC low 2.00, Hgb 11.3 Liver enzymes returned to normal by 07/05/2022 Hx Cholycystectomy 2020 Hx EGD 11/2021 OSH with esophagitis Hx THC use Abdominal cramping 06/27/2017 07/20/2021 Epiglottitis 07/03/2014 07/30/2014 Overview: She has a viral infections that is Last Assessment & Plan: She has been having sore throat since 4 days, Post nasal drainage, Threw up all day Monday, couldn't breathe, also had severe cough. Chest hurting. Went to er , was told she had viral pharyngitis and bronchitis. She cannot swallow at this point, And has trouble breathing. Her saliva is pooling. She also has asthma and doesn't not have a inhaler at this point. 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 Serologic workup with positive ASmMuA 1:80, immune to hep B. RUQ US normal. WBC low 2.00, Hgb 11.3 Liver enzymes returned to normal by 07/05/2022 Hx Cholycystectomy 2020 Hx EGD 11/2021 OSH with esophagitis Hx THC use Abdominal cramping 06/27/2017 07/20/2021 Epiglottitis 07/03/2014 07/30/2014 Overview: She has a viral infections that is Last Assessment & Plan: She has been having sore throat since 4 days, Post nasal drainage, Threw up all day Monday, couldn't breathe, also had severe cough. Chest hurting. Went to er , was told she had viral pharyngitis and bronchitis. She cannot swallow at this point, And has trouble breathing. Her saliva is pooling. She also has asthma and doesn't not have a inhaler at this point. 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 Serologic workup with positive ASmMuA 1:80, immune to hep B. RUQ US normal. WBC low 2.00, Hgb 11.3 Liver enzymes returned to normal by 07/05/2022 Hx Cholycystectomy 2020 Hx EGD 11/2021 OSH with esophagitis Hx THC use Abdominal cramping 06/27/2017 07/20/2021 Epiglottitis 07/03/2014 07/30/2014 Overview: She has a viral infections that is Last Assessment & Plan: She has been having sore throat since 4 days, Post nasal drainage, Threw up all day Monday, couldn't breathe, also had severe cough. Chest hurting. Went to er , was told she had viral pharyngitis and bronchitis. She cannot swallow at this point, And has trouble breathing. Her saliva is pooling. She also has asthma and doesn't not have a inhaler at this point. 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 Serologic workup with positive ASmMuA 1:80, immune to hep B. RUQ US normal. WBC low 2.00, Hgb 11.3 Liver enzymes returned to normal by 07/05/2022 Hx Cholycystectomy 2020 Hx EGD 11/2021 OSH with esophagitis Hx THC use Abdominal cramping 06/27/2017 07/20/2021 Epiglottitis 07/03/2014 07/30/2014 Overview: She has a viral infections that is Last Assessment & Plan: She has been having sore throat since 4 days, Post nasal drainage, Threw up all day Monday, couldn't breathe, also had severe cough. Chest hurting. Went to er , was told she had viral pharyngitis and bronchitis. She cannot swallow at this point, And has trouble breathing. Her saliva is pooling. She also has asthma and doesn't not have a inhaler at this point. 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 Serologic workup with positive ASmMuA 1:80, immune to hep B. RUQ US normal. WBC low 2.00, Hgb 11.3 Liver enzymes returned to normal by 07/05/2022 Hx Cholycystectomy 2020 Hx EGD 11/2021 OSH with esophagitis Hx THC use Abdominal cramping 06/27/2017 07/20/2021 Epiglottitis 07/03/2014 07/30/2014 Overview: She has a viral infections that is Last Assessment & Plan: She has been having sore throat since 4 days, Post nasal drainage, Threw up all day Monday, couldn't breathe, also had severe cough. Chest hurting. Went to er , was told she had viral pharyngitis and bronchitis. She cannot swallow at this point, And has trouble breathing. Her saliva is pooling. She also has asthma and doesn't not have a inhaler at this point. 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 Serologic workup with positive ASmMuA 1:80, immune to hep B. RUQ US normal. WBC low 2.00, Hgb 11.3 Liver enzymes returned to normal by 07/05/2022 Hx Cholycystectomy 2020 Hx EGD 11/2021 OSH with esophagitis Hx THC use Abdominal cramping 06/27/2017 07/20/2021 Epiglottitis 07/03/2014 07/30/2014 Overview: She has a viral infections that is Last Assessment & Plan: She has been having sore throat since 4 days, Post nasal drainage, Threw up all day Monday, couldn't breathe, also had severe cough. Chest hurting. Went to er , was told she had viral pharyngitis and bronchitis. She cannot swallow at this point, And has trouble breathing. Her saliva is pooling. She also has asthma and doesn't not have a inhaler at this point. 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 Serologic workup with positive ASmMuA 1:80, immune to hep B. RUQ US normal. WBC low 2.00, Hgb 11.3 Liver enzymes returned to normal by 07/05/2022 Hx Cholycystectomy 2020 Hx EGD 11/2021 OSH with esophagitis Hx THC use Abdominal cramping 06/27/2017 07/20/2021 Epiglottitis 07/03/2014 07/30/2014 Overview: She has a viral infections that is Last Assessment & Plan: She has been having sore throat since 4 days, Post nasal drainage, Threw up all day Monday, couldn't breathe, also had severe cough. Chest hurting. Went to er , was told she had viral pharyngitis and bronchitis. She cannot swallow at this point, And has trouble breathing. Her saliva is pooling. She also has asthma and doesn't not have a inhaler at this point. 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 Serologic workup with positive ASmMuA 1:80, immune to hep B. RUQ US normal. WBC low 2.00, Hgb 11.3 Liver enzymes returned to normal by 07/05/2022 Hx Cholycystectomy 2020 Hx EGD 11/2021 OSH with esophagitis Hx THC use Abdominal cramping 06/27/2017 07/20/2021 Epiglottitis 07/03/2014 07/30/2014 Overview: She has a viral infections that is Last Assessment & Plan: She has been having sore throat since 4 days, Post nasal drainage, Threw up all day Monday, couldn't breathe, also had severe cough. Chest hurting. Went to er , was told she had viral pharyngitis and bronchitis. She cannot swallow at this point, And has trouble breathing. Her saliva is pooling. She also has asthma and doesn't not have a inhaler at this point. 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 Serologic workup with positive ASmMuA 1:80, immune to hep B. RUQ US normal. WBC low 2.00, Hgb 11.3 Liver enzymes returned to normal by 07/05/2022 Hx Cholycystectomy 2020 Hx EGD 11/2021 OSH with esophagitis Hx THC use Abdominal cramping 06/27/2017 07/20/2021 Epiglottitis 07/03/2014 07/30/2014 Overview: She has a viral infections that is Last Assessment & Plan: She has been having sore throat since 4 days, Post nasal drainage, Threw up all day Monday, couldn't breathe, also had severe cough. Chest hurting. Went to er , was told she had viral pharyngitis and bronchitis. She cannot swallow at this point, And has trouble breathing. Her saliva is pooling. She also has asthma and doesn't not have a inhaler at this point. 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 Serologic workup with positive ASmMuA 1:80, immune to hep B. RUQ US normal. WBC low 2.00, Hgb 11.3 Liver enzymes returned to normal by 07/05/2022 Hx Cholycystectomy 2020 Hx EGD 11/2021 OSH with esophagitis Hx THC use Abdominal cramping 06/27/2017 07/20/2021 Epiglottitis 07/03/2014 07/30/2014 Overview: She has a viral infections that is Last Assessment & Plan: She has been having sore throat since 4 days, Post nasal drainage, Threw up all day Monday, couldn't breathe, also had severe cough. Chest hurting. Went to er , was told she had viral pharyngitis and bronchitis. She cannot swallow at this point, And has trouble breathing. Her saliva is pooling. She also has asthma and doesn't not have a inhaler at this point. 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 Serologic workup with positive ASmMuA 1:80, immune to hep B. RUQ US normal. WBC low 2.00, Hgb 11.3 Liver enzymes returned to normal by 07/05/2022 Hx Cholycystectomy 2020 Hx EGD 11/2021 OSH with esophagitis Hx THC use Abdominal cramping 06/27/2017 07/20/2021 Epiglottitis 07/03/2014 07/30/2014 Overview: She has a viral infections that is Last Assessment & Plan: She has been having sore throat since 4 days, Post nasal drainage, Threw up all day Monday, couldn't breathe, also had severe cough. Chest hurting. Went to er , was told she had viral pharyngitis and bronchitis. She cannot swallow at this point, And has trouble breathing. Her saliva is pooling. She also has asthma and doesn't not have a inhaler at this point. 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 Serologic workup with positive ASmMuA 1:80, immune to hep B. RUQ US normal. WBC low 2.00, Hgb 11.3 Liver enzymes returned to normal by 07/05/2022 Hx Cholycystectomy 2020 Hx EGD 11/2021 OSH with esophagitis Hx THC use Abdominal cramping 06/27/2017 07/20/2021 Epiglottitis 07/03/2014 07/30/2014 Overview: She has a viral infections that is Last Assessment & Plan: She has been having sore throat since 4 days, Post nasal drainage, Threw up all day Monday, couldn't breathe, also had severe cough. Chest hurting. Went to er , was told she had viral pharyngitis and bronchitis. She cannot swallow at this point, And has trouble breathing. Her saliva is pooling. She also has asthma and doesn't not have a inhaler at this point. 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 Serologic workup with positive ASmMuA 1:80, immune to hep B. RUQ US normal. WBC low 2.00, Hgb 11.3 Liver enzymes returned to normal by 07/05/2022 Hx Cholycystectomy 2020 Hx EGD 11/2021 OSH with esophagitis Hx THC use Abdominal cramping 06/27/2017 07/20/2021 Epiglottitis 07/03/2014 07/30/2014 Overview: She has a viral infections that is Last Assessment & Plan: She has been having sore throat since 4 days, Post nasal drainage, Threw up all day Monday, couldn't breathe, also had severe cough. Chest hurting. Went to er , was told she had viral pharyngitis and bronchitis. She cannot swallow at this point, And has trouble breathing. Her saliva is pooling. She also has asthma and doesn't not have a inhaler at this point. documented as of this encounter (statuses as of 02/02/2023) [facility]-05-2017 History of Past illness Narrative* Problem Noted Date Resolved Date Abdominal cramping 06/27/2017 07/20/2021 Epiglottitis 07/03/2014 07/30/2014 Overview: She has a viral infections that is Last Assessment & Plan: She has been having sore throat since 4 days, Post nasal drainage, Threw up all day Monday, couldn't breathe, also had severe cough. Chest hurting. Went to er , was told she had viral pharyngitis and bronchitis. She cannot swallow at this point, And has trouble breathing. Her saliva is pooling. She also has asthma and doesn't not have a inhaler at this point. documented as of this encounter (statuses as of 01/19/2022) [facility]-2017 History of Past illness Narrative* Problem Noted Date Resolved Date Abdominal cramping 06/27/2017 07/20/2021 Epiglottitis 07/03/2014 07/30/2014 Overview: She has a viral infections that is Last Assessment & Plan: She has been having sore throat since 4 days, Post nasal drainage, Threw up all day Monday, couldn't breathe, also had severe cough. Chest hurting. Went to er , was told she had viral pharyngitis and bronchitis. She cannot swallow at this point, And has trouble breathing. Her saliva is pooling. She also has asthma and doesn't not have a inhaler at this point. documented as of this encounter (statuses as of 01/26/2022) [facility]2017 History of Past illness Narrative* Problem Noted Date Resolved Date Abdominal cramping 06/27/2017 07/20/2021 Epiglottitis 07/03/2014 07/30/2014 Overview: She has a viral infections that is Last Assessment & Plan: She has been having sore throat since 4 days, Post nasal drainage, Threw up all day Monday, couldn't breathe, also had severe cough. Chest hurting. Went to er , was told she had viral pharyngitis and bronchitis. She cannot swallow at this point, And has trouble breathing. Her saliva is pooling. She also has asthma and doesn't not have a inhaler at this point. documented as of this encounter (statuses as of 01/27/2022) [facility]2017 History of Past illness Narrative* Problem Noted Date Resolved Date Abdominal cramping 06/27/2017 07/20/2021 Epiglottitis 07/03/2014 07/30/2014 Overview: She has a viral infections that is Last Assessment & Plan: She has been having sore throat since 4 days, Post nasal drainage, Threw up all day Monday, couldn't breathe, also had severe cough. Chest hurting. Went to er , was told she had viral pharyngitis and bronchitis. She cannot swallow at this point, And has trouble breathing. Her saliva is pooling. She also has asthma and doesn't not have a inhaler at this point. documented as of this encounter (statuses as of 02/02/2022) [facility]2017 History of Past illness Narrative* Problem Noted Date Resolved Date Abdominal cramping 06/27/2017 07/20/2021 Epiglottitis 07/03/2014 07/30/2014 Overview: She has a viral infections that is Last Assessment & Plan: She has been having sore throat since 4 days, Post nasal drainage, Threw up all day Monday, couldn't breathe, also had severe cough. Chest hurting. Went to er , was told she had viral pharyngitis and bronchitis. She cannot swallow at this point, And has trouble breathing. Her saliva is pooling. She also has asthma and doesn't not have a inhaler at this point. documented as of this encounter (statuses as of 02/04/2022) [facility]2017 History of Past illness Narrative* Problem Noted Date Resolved Date Abdominal cramping 06/27/2017 07/20/2021 Epiglottitis 07/03/2014 07/30/2014 Overview: She has a viral infections that is Last Assessment & Plan: She has been having sore throat since 4 days, Post nasal drainage, Threw up all day Monday, couldn't breathe, also had severe cough. Chest hurting. Went to er , was told she had viral pharyngitis and bronchitis. She cannot swallow at this point, And has trouble breathing. Her saliva is pooling. She also has asthma and doesn't not have a inhaler at this point. documented as of this encounter (statuses as of 02/09/2022) [facility]2017 History of Past illness Narrative* Problem Noted Date Resolved Date Abdominal cramping 06/27/2017 07/20/2021 Epiglottitis 07/03/2014 07/30/2014 Overview: She has a viral infections that is Last Assessment & Plan: She has been having sore throat since 4 days, Post nasal drainage, Threw up all day Monday, couldn't breathe, also had severe cough. Chest hurting. Went to er , was told she had viral pharyngitis and bronchitis. She cannot swallow at this point, And has trouble breathing. Her saliva is pooling. She also has asthma and doesn't not have a inhaler at this point. documented as of this encounter (statuses as of 03/15/2022) [facility]2017 History of Past illness Narrative* Problem Noted Date Resolved Date Abdominal cramping 06/27/2017 07/20/2021 Epiglottitis 07/03/2014 07/30/2014 Overview: She has a viral infections that is Last Assessment & Plan: She has been having sore throat since 4 days, Post nasal drainage, Threw up all day Monday, couldn't breathe, also had severe cough. Chest hurting. Went to er , was told she had viral pharyngitis and bronchitis. She cannot swallow at this point, And has trouble breathing. Her saliva is pooling. She also has asthma and doesn't not have a inhaler at this point. documented as of this encounter (statuses as of 04/01/2022) [facility]2017 History of Past illness Narrative* Problem Noted Date Resolved Date Abdominal cramping 06/27/2017 07/20/2021 Epiglottitis 07/03/2014 07/30/2014 Overview: She has a viral infections that is Last Assessment & Plan: She has been having sore throat since 4 days, Post nasal drainage, Threw up all day Monday, couldn't breathe, also had severe cough. Chest hurting. Went to er , was told she had viral pharyngitis and bronchitis. She cannot swallow at this point, And has trouble breathing. Her saliva is pooling. She also has asthma and doesn't not have a inhaler at this point. documented as of this encounter (statuses as of 04/15/2022) [facility]2017 History of Past illness Narrative* Problem Noted Date Resolved Date Abdominal cramping 06/27/2017 07/20/2021 Epiglottitis 07/03/2014 07/30/2014 Overview: She has a viral infections that is Last Assessment & Plan: She has been having sore throat since 4 days, Post nasal drainage, Threw up all day Monday, couldn't breathe, also had severe cough. Chest hurting. Went to er , was told she had viral pharyngitis and bronchitis. She cannot swallow at this point, And has trouble breathing. Her saliva is pooling. She also has asthma and doesn't not have a inhaler at this point. documented as of this encounter (statuses as of 04/19/2022) [facility]2017 History of Past illness Narrative* Problem Noted Date Resolved Date Abdominal cramping 06/27/2017 07/20/2021 Epiglottitis 07/03/2014 07/30/2014 Overview: She has a viral infections that is Last Assessment & Plan: She has been having sore throat since 4 days, Post nasal drainage, Threw up all day Monday, couldn't breathe, also had severe cough. Chest hurting. Went to er , was told she had viral pharyngitis and bronchitis. She cannot swallow at this point, And has trouble breathing. Her saliva is pooling. She also has asthma and doesn't not have a inhaler at this point. documented as of this encounter (statuses as of 05/30/2022) [facility]2017 History of Past illness Narrative* Problem Noted Date Resolved Date Abdominal cramping 06/27/2017 07/20/2021 Epiglottitis 07/03/2014 07/30/2014 Overview: She has a viral infections that is Last Assessment & Plan: She has been having sore throat since 4 days, Post nasal drainage, Threw up all day Monday, couldn't breathe, also had severe cough. Chest hurting. Went to er , was told she had viral pharyngitis and bronchitis. She cannot swallow at this point, And has trouble breathing. Her saliva is pooling. She also has asthma and doesn't not have a inhaler at this point. documented as of this encounter (statuses as of 06/20/2022) [facility]2017 History of Past illness Narrative* Problem Noted Date Resolved Date Abdominal cramping 06/27/2017 07/20/2021 Epiglottitis 07/03/2014 07/30/2014 Overview: She has a viral infections that is Last Assessment & Plan: She has been having sore throat since 4 days, Post nasal drainage, Threw up all day Monday, couldn't breathe, also had severe cough. Chest hurting. Went to er , was told she had viral pharyngitis and bronchitis. She cannot swallow at this point, And has trouble breathing. Her saliva is pooling. She also has asthma and doesn't not have a inhaler at this point. documented as of this encounter (statuses as of 06/30/2022) [facility]2017 History of Past illness Narrative* Problem Noted Date Resolved Date Abdominal cramping 06/27/2017 07/20/2021 Epiglottitis 07/03/2014 07/30/2014 Overview: She has a viral infections that is Last Assessment & Plan: She has been having sore throat since 4 days, Post nasal drainage, Threw up all day Monday, couldn't breathe, also had severe cough. Chest hurting. Went to er , was told she had viral pharyngitis and bronchitis. She cannot swallow at this point, And has trouble breathing. Her saliva is pooling. She also has asthma and doesn't not have a inhaler at this point. documented as of this encounter (statuses as of 06/30/2022) [facility]2017 History of Past illness Narrative* Problem Noted Date Resolved Date Abdominal cramping 06/27/2017 07/20/2021 Epiglottitis 07/03/2014 07/30/2014 Overview: She has a viral infections that is Last Assessment & Plan: She has been having sore throat since 4 days, Post nasal drainage, Threw up all day Monday, couldn't breathe, also had severe cough. Chest hurting. Went to er , was told she had viral pharyngitis and bronchitis. She cannot swallow at this point, And has trouble breathing. Her saliva is pooling. She also has asthma and doesn't not have a inhaler at this point. documented as of this encounter (statuses as of 07/14/2022) [facility]2017 History of Past illness Narrative* Problem Noted Date Resolved Date Abdominal cramping 06/27/2017 07/20/2021 Epiglottitis 07/03/2014 07/30/2014 Overview: She has a viral infections that is Last Assessment & Plan: She has been having sore throat since 4 days, Post nasal drainage, Threw up all day Monday, couldn't breathe, also had severe cough. Chest hurting. Went to er , was told she had viral pharyngitis and bronchitis. She cannot swallow at this point, And has trouble breathing. Her saliva is pooling. She also has asthma and doesn't not have a inhaler at this point. documented as of this encounter (statuses as of 07/16/2022) [facility]2017 History of Past illness Narrative* Problem Noted Date Resolved Date Abdominal cramping 06/27/2017 07/20/2021 Epiglottitis 07/03/2014 07/30/2014 Overview: She has a viral infections that is Last Assessment & Plan: She has been having sore throat since 4 days, Post nasal drainage, Threw up all day Monday, couldn't breathe, also had severe cough. Chest hurting. Went to er , was told she had viral pharyngitis and bronchitis. She cannot swallow at this point, And has trouble breathing. Her saliva is pooling. She also has asthma and doesn't not have a inhaler at this point. documented as of this encounter (statuses as of 07/20/2022) [facility]-05-2017 History of Past illness Narrative* Problem Noted Date Resolved Date Abdominal cramping 06/27/2017 07/20/2021 Epiglottitis 07/03/2014 07/30/2014 Overview: She has a viral infections that is Last Assessment & Plan: She has been having sore throat since 4 days, Post nasal drainage, Threw up all day Monday, couldn't breathe, also had severe cough. Chest hurting. Went to er , was told she had viral pharyngitis and bronchitis. She cannot swallow at this point, And has trouble breathing. Her saliva is pooling. She also has asthma and doesn't not have a inhaler at this point. documented as of this encounter (statuses as of 07/21/2022) [facility]-05-2017 History of Past illness Narrative* Problem Noted Date Resolved Date Abdominal cramping 06/27/2017 07/20/2021 Epiglottitis 07/03/2014 07/30/2014 Overview: She has a viral infections that is Last Assessment & Plan: She has been having sore throat since 4 days, Post nasal drainage, Threw up all day Monday, couldn't breathe, also had severe cough. Chest hurting. Went to er , was told she had viral pharyngitis and bronchitis. She cannot swallow at this point, And has trouble breathing. Her saliva is pooling. She also has asthma and doesn't not have a inhaler at this point. documented as of this encounter (statuses as of 07/26/2022) [facility]-2017 History of Past illness Narrative* Problem Noted Date Resolved Date Abdominal cramping 06/27/2017 07/20/2021 Epiglottitis 07/03/2014 07/30/2014 Overview: She has a viral infections that is Last Assessment & Plan: She has been having sore throat since 4 days, Post nasal drainage, Threw up all day Monday, couldn't breathe, also had severe cough. Chest hurting. Went to er , was told she had viral pharyngitis and bronchitis. She cannot swallow at this point, And has trouble breathing. Her saliva is pooling. She also has asthma and doesn't not have a inhaler at this point. documented as of this encounter (statuses as of 07/28/2022) [facility]2017 History of Past illness Narrative* Problem Noted Date Resolved Date Abdominal cramping 06/27/2017 07/20/2021 Epiglottitis 07/03/2014 07/30/2014 Overview: She has a viral infections that is Last Assessment & Plan: She has been having sore throat since 4 days, Post nasal drainage, Threw up all day Monday, couldn't breathe, also had severe cough. Chest hurting. Went to er , was told she had viral pharyngitis and bronchitis. She cannot swallow at this point, And has trouble breathing. Her saliva is pooling. She also has asthma and doesn't not have a inhaler at this point. documented as of this encounter (statuses as of 07/29/2022) [facility]2017 History of Past illness Narrative* Problem Noted Date Resolved Date Abdominal cramping 06/27/2017 07/20/2021 Epiglottitis 07/03/2014 07/30/2014 Overview: She has a viral infections that is Last Assessment & Plan: She has been having sore throat since 4 days, Post nasal drainage, Threw up all day Monday, couldn't breathe, also had severe cough. Chest hurting. Went to er , was told she had viral pharyngitis and bronchitis. She cannot swallow at this point, And has trouble breathing. Her saliva is pooling. She also has asthma and doesn't not have a inhaler at this point. documented as of this encounter (statuses as of 08/01/2022) [facility]2017 History of Past illness Narrative* Problem Noted Date Resolved Date Abdominal cramping 06/27/2017 07/20/2021 Epiglottitis 07/03/2014 07/30/2014 Overview: She has a viral infections that is Last Assessment & Plan: She has been having sore throat since 4 days, Post nasal drainage, Threw up all day Monday, couldn't breathe, also had severe cough. Chest hurting. Went to er , was told she had viral pharyngitis and bronchitis. She cannot swallow at this point, And has trouble breathing. Her saliva is pooling. She also has asthma and doesn't not have a inhaler at this point. documented as of this encounter (statuses as of 08/02/2022) [facility]2017 History of Past illness Narrative* Problem Noted Date Resolved Date Abdominal cramping 06/27/2017 07/20/2021 Epiglottitis 07/03/2014 07/30/2014 Overview: She has a viral infections that is Last Assessment & Plan: She has been having sore throat since 4 days, Post nasal drainage, Threw up all day Monday, couldn't breathe, also had severe cough. Chest hurting. Went to er , was told she had viral pharyngitis and bronchitis. She cannot swallow at this point, And has trouble breathing. Her saliva is pooling. She also has asthma and doesn't not have a inhaler at this point. documented as of this encounter (statuses as of 08/03/2022) [facility]2017 History of Past illness Narrative* Problem Noted Date Resolved Date Abdominal cramping 06/27/2017 07/20/2021 Epiglottitis 07/03/2014 07/30/2014 Overview: She has a viral infections that is Last Assessment & Plan: She has been having sore throat since 4 days, Post nasal drainage, Threw up all day Monday, couldn't breathe, also had severe cough. Chest hurting. Went to er , was told she had viral pharyngitis and bronchitis. She cannot swallow at this point, And has trouble breathing. Her saliva is pooling. She also has asthma and doesn't not have a inhaler at this point. documented as of this encounter (statuses as of 08/04/2022) [facility]2017 History of Past illness Narrative* Problem Noted Date Resolved Date Abdominal cramping 06/27/2017 07/20/2021 Epiglottitis 07/03/2014 07/30/2014 Overview: She has a viral infections that is Last Assessment & Plan: She has been having sore throat since 4 days, Post nasal drainage, Threw up all day Monday, couldn't breathe, also had severe cough. Chest hurting. Went to er , was told she had viral pharyngitis and bronchitis. She cannot swallow at this point, And has trouble breathing. Her saliva is pooling. She also has asthma and doesn't not have a inhaler at this point. documented as of this encounter (statuses as of 08/09/2022) [facility]2017 History of Past illness Narrative* Problem Noted Date Resolved Date Abdominal cramping 06/27/2017 07/20/2021 Epiglottitis 07/03/2014 07/30/2014 Overview: She has a viral infections that is Last Assessment & Plan: She has been having sore throat since 4 days, Post nasal drainage, Threw up all day Monday, couldn't breathe, also had severe cough. Chest hurting. Went to er , was told she had viral pharyngitis and bronchitis. She cannot swallow at this point, And has trouble breathing. Her saliva is pooling. She also has asthma and doesn't not have a inhaler at this point. documented as of this encounter (statuses as of 08/12/2022) [facility]2017 History of Past illness Narrative* Problem Noted Date Resolved Date Abdominal cramping 06/27/2017 07/20/2021 Epiglottitis 07/03/2014 07/30/2014 Overview: She has a viral infections that is Last Assessment & Plan: She has been having sore throat since 4 days, Post nasal drainage, Threw up all day Monday, couldn't breathe, also had severe cough. Chest hurting. Went to er , was told she had viral pharyngitis and bronchitis. She cannot swallow at this point, And has trouble breathing. Her saliva is pooling. She also has asthma and doesn't not have a inhaler at this point. documented as of this encounter (statuses as of 08/17/2022) [facility]2017 History of Past illness Narrative* Problem Noted Date Resolved Date Abdominal cramping 06/27/2017 07/20/2021 Epiglottitis 07/03/2014 07/30/2014 Overview: She has a viral infections that is Last Assessment & Plan: She has been having sore throat since 4 days, Post nasal drainage, Threw up all day Monday, couldn't breathe, also had severe cough. Chest hurting. Went to er , was told she had viral pharyngitis and bronchitis. She cannot swallow at this point, And has trouble breathing. Her saliva is pooling. She also has asthma and doesn't not have a inhaler at this point. documented as of this encounter (statuses as of 08/22/2022) [facility]2017 History of Past illness Narrative* Problem Noted Date Resolved Date Abdominal cramping 06/27/2017 07/20/2021 Epiglottitis 07/03/2014 07/30/2014 Overview: She has a viral infections that is Last Assessment & Plan: She has been having sore throat since 4 days, Post nasal drainage, Threw up all day Monday, couldn't breathe, also had severe cough. Chest hurting. Went to er , was told she had viral pharyngitis and bronchitis. She cannot swallow at this point, And has trouble breathing. Her saliva is pooling. She also has asthma and doesn't not have a inhaler at this point. documented as of this encounter (statuses as of 08/22/2022) [facility]2017 History of Past illness Narrative* Problem Noted Date Resolved Date Abdominal cramping 06/27/2017 07/20/2021 Epiglottitis 07/03/2014 07/30/2014 Overview: She has a viral infections that is Last Assessment & Plan: She has been having sore throat since 4 days, Post nasal drainage, Threw up all day Monday, couldn't breathe, also had severe cough. Chest hurting. Went to er , was told she had viral pharyngitis and bronchitis. She cannot swallow at this point, And has trouble breathing. Her saliva is pooling. She also has asthma and doesn't not have a inhaler at this point. documented as of this encounter (statuses as of 08/23/2022) [facility]2017 History of Past illness Narrative* Problem Noted Date Resolved Date Abdominal cramping 06/27/2017 07/20/2021 Epiglottitis 07/03/2014 07/30/2014 Overview: She has a viral infections that is Last Assessment & Plan: She has been having sore throat since 4 days, Post nasal drainage, Threw up all day Monday, couldn't breathe, also had severe cough. Chest hurting. Went to er , was told she had viral pharyngitis and bronchitis. She cannot swallow at this point, And has trouble breathing. Her saliva is pooling. She also has asthma and doesn't not have a inhaler at this point. documented as of this encounter (statuses as of 08/23/2022) [facility]2017 History of Past illness Narrative* Problem Noted Date Resolved Date Abdominal cramping 06/27/2017 07/20/2021 Epiglottitis 07/03/2014 07/30/2014 Overview: She has a viral infections that is Last Assessment & Plan: She has been having sore throat since 4 days, Post nasal drainage, Threw up all day Monday, couldn't breathe, also had severe cough. Chest hurting. Went to er , was told she had viral pharyngitis and bronchitis. She cannot swallow at this point, And has trouble breathing. Her saliva is pooling. She also has asthma and doesn't not have a inhaler at this point. documented as of this encounter (statuses as of 09/01/2022) [facility]2017 History of Past illness Narrative* Problem Noted Date Resolved Date Abdominal cramping 06/27/2017 07/20/2021 Epiglottitis 07/03/2014 07/30/2014 Overview: She has a viral infections that is Last Assessment & Plan: She has been having sore throat since 4 days, Post nasal drainage, Threw up all day Monday, couldn't breathe, also had severe cough. Chest hurting. Went to er , was told she had viral pharyngitis and bronchitis. She cannot swallow at this point, And has trouble breathing. Her saliva is pooling. She also has asthma and doesn't not have a inhaler at this point. documented as of this encounter (statuses as of 09/05/2022) [facility]2017 History of Past illness Narrative* Problem Noted Date Resolved Date Abdominal cramping 06/27/2017 07/20/2021 Epiglottitis 07/03/2014 07/30/2014 Overview: She has a viral infections that is Last Assessment & Plan: She has been having sore throat since 4 days, Post nasal drainage, Threw up all day Monday, couldn't breathe, also had severe cough. Chest hurting. Went to er , was told she had viral pharyngitis and bronchitis. She cannot swallow at this point, And has trouble breathing. Her saliva is pooling. She also has asthma and doesn't not have a inhaler at this point. documented as of this encounter (statuses as of 09/06/2022) [facility]2017 History of Past illness Narrative* Problem Noted Date Resolved Date Abdominal cramping 06/27/2017 07/20/2021 Epiglottitis 07/03/2014 07/30/2014 Overview: She has a viral infections that is Last Assessment & Plan: She has been having sore throat since 4 days, Post nasal drainage, Threw up all day Monday, couldn't breathe, also had severe cough. Chest hurting. Went to er , was told she had viral pharyngitis and bronchitis. She cannot swallow at this point, And has trouble breathing. Her saliva is pooling. She also has asthma and doesn't not have a inhaler at this point. documented as of this encounter (statuses as of 09/08/2022) [facility]2017 History of Past illness Narrative* Problem Noted Date Resolved Date Abdominal cramping 06/27/2017 07/20/2021 Epiglottitis 07/03/2014 07/30/2014 Overview: She has a viral infections that is Last Assessment & Plan: She has been having sore throat since 4 days, Post nasal drainage, Threw up all day Monday, couldn't breathe, also had severe cough. Chest hurting. Went to er , was told she had viral pharyngitis and bronchitis. She cannot swallow at this point, And has trouble breathing. Her saliva is pooling. She also has asthma and doesn't not have a inhaler at this point. documented as of this encounter (statuses as of 09/14/2022) [facility]2017 History of Past illness Narrative* Problem Noted Date Resolved Date Abdominal cramping 06/27/2017 07/20/2021 Epiglottitis 07/03/2014 07/30/2014 Overview: She has a viral infections that is Last Assessment & Plan: She has been having sore throat since 4 days, Post nasal drainage, Threw up all day Monday, couldn't breathe, also had severe cough. Chest hurting. Went to er , was told she had viral pharyngitis and bronchitis. She cannot swallow at this point, And has trouble breathing. Her saliva is pooling. She also has asthma and doesn't not have a inhaler at this point. documented as of this encounter (statuses as of 09/14/2022) [facility]2017 History of Past illness Narrative* Problem Noted Date Resolved Date Abdominal cramping 06/27/2017 07/20/2021 Epiglottitis 07/03/2014 07/30/2014 Overview: She has a viral infections that is Last Assessment & Plan: She has been having sore throat since 4 days, Post nasal drainage, Threw up all day Monday, couldn't breathe, also had severe cough. Chest hurting. Went to er , was told she had viral pharyngitis and bronchitis. She cannot swallow at this point, And has trouble breathing. Her saliva is pooling. She also has asthma and doesn't not have a inhaler at this point. documented as of this encounter (statuses as of 09/14/2022) [facility]2017 History of Past illness Narrative* Problem Noted Date Resolved Date Abdominal cramping 06/27/2017 07/20/2021 Epiglottitis 07/03/2014 07/30/2014 Overview: She has a viral infections that is Last Assessment & Plan: She has been having sore throat since 4 days, Post nasal drainage, Threw up all day Monday, couldn't breathe, also had severe cough. Chest hurting. Went to er , was told she had viral pharyngitis and bronchitis. She cannot swallow at this point, And has trouble breathing. Her saliva is pooling. She also has asthma and doesn't not have a inhaler at this point. documented as of this encounter (statuses as of 10/04/2022) [facility]2017 History of Past illness Narrative* Problem Noted Date Resolved Date Abdominal cramping 06/27/2017 07/20/2021 Epiglottitis 07/03/2014 07/30/2014 Overview: She has a viral infections that is Last Assessment & Plan: She has been having sore throat since 4 days, Post nasal drainage, Threw up all day Monday, couldn't breathe, also had severe cough. Chest hurting. Went to er , was told she had viral pharyngitis and bronchitis. She cannot swallow at this point, And has trouble breathing. Her saliva is pooling. She also has asthma and doesn't not have a inhaler at this point. documented as of this encounter (statuses as of 10/05/2022) [facility]2017 History of Past illness Narrative* Problem Noted Date Resolved Date Abdominal cramping 06/27/2017 07/20/2021 Epiglottitis 07/03/2014 07/30/2014 Overview: She has a viral infections that is Last Assessment & Plan: She has been having sore throat since 4 days, Post nasal drainage, Threw up all day Monday, couldn't breathe, also had severe cough. Chest hurting. Went to er , was told she had viral pharyngitis and bronchitis. She cannot swallow at this point, And has trouble breathing. Her saliva is pooling. She also has asthma and doesn't not have a inhaler at this point. documented as of this encounter (statuses as of 10/06/2022) [facility]2017 History of Past illness Narrative* Problem Noted Date Resolved Date Abdominal cramping 06/27/2017 07/20/2021 Epiglottitis 07/03/2014 07/30/2014 Overview: She has a viral infections that is Last Assessment & Plan: She has been having sore throat since 4 days, Post nasal drainage, Threw up all day Monday, couldn't breathe, also had severe cough. Chest hurting. Went to er , was told she had viral pharyngitis and bronchitis. She cannot swallow at this point, And has trouble breathing. Her saliva is pooling. She also has asthma and doesn't not have a inhaler at this point. documented as of this encounter (statuses as of 10/10/2022) [facility]2017 History of Past illness Narrative* Problem Noted Date Resolved Date Abdominal cramping 06/27/2017 07/20/2021 Epiglottitis 07/03/2014 07/30/2014 Overview: She has a viral infections that is Last Assessment & Plan: She has been having sore throat since 4 days, Post nasal drainage, Threw up all day Monday, couldn't breathe, also had severe cough. Chest hurting. Went to er , was told she had viral pharyngitis and bronchitis. She cannot swallow at this point, And has trouble breathing. Her saliva is pooling. She also has asthma and doesn't not have a inhaler at this point. documented as of this encounter (statuses as of 10/12/2022) [facility]2017 History of Past illness Narrative* Problem Noted Date Resolved Date Abdominal cramping 06/27/2017 07/20/2021 Epiglottitis 07/03/2014 07/30/2014 Overview: She has a viral infections that is Last Assessment & Plan: She has been having sore throat since 4 days, Post nasal drainage, Threw up all day Monday, couldn't breathe, also had severe cough. Chest hurting. Went to er , was told she had viral pharyngitis and bronchitis. She cannot swallow at this point, And has trouble breathing. Her saliva is pooling. She also has asthma and doesn't not have a inhaler at this point. documented as of this encounter (statuses as of 10/24/2022) [facility]2017 History of Past illness Narrative* Problem Noted Date Resolved Date Abdominal cramping 06/27/2017 07/20/2021 Epiglottitis 07/03/2014 07/30/2014 Overview: She has a viral infections that is Last Assessment & Plan: She has been having sore throat since 4 days, Post nasal drainage, Threw up all day Monday, couldn't breathe, also had severe cough. Chest hurting. Went to er , was told she had viral pharyngitis and bronchitis. She cannot swallow at this point, And has trouble breathing. Her saliva is pooling. She also has asthma and doesn't not have a inhaler at this point. documented as of this encounter (statuses as of 10/27/2022) [facility]2017 History of Past illness Narrative* Problem Noted Date Resolved Date Abdominal cramping 06/27/2017 07/20/2021 Epiglottitis 07/03/2014 07/30/2014 Overview: She has a viral infections that is Last Assessment & Plan: She has been having sore throat since 4 days, Post nasal drainage, Threw up all day Monday, couldn't breathe, also had severe cough. Chest hurting. Went to er , was told she had viral pharyngitis and bronchitis. She cannot swallow at this point, And has trouble breathing. Her saliva is pooling. She also has asthma and doesn't not have a inhaler at this point. documented as of this encounter (statuses as of 11/02/2022) [facility]2017 History of Past illness Narrative* Problem Noted Date Resolved Date Abdominal cramping 06/27/2017 07/20/2021 Epiglottitis 07/03/2014 07/30/2014 Overview: She has a viral infections that is Last Assessment & Plan: She has been having sore throat since 4 days, Post nasal drainage, Threw up all day Monday, couldn't breathe, also had severe cough. Chest hurting. Went to er , was told she had viral pharyngitis and bronchitis. She cannot swallow at this point, And has trouble breathing. Her saliva is pooling. She also has asthma and doesn't not have a inhaler at this point. documented as of this encounter (statuses as of 11/07/2022) [facility]2017 History of Past illness Narrative* Problem Noted Date Resolved Date Abdominal cramping 06/27/2017 07/20/2021 Epiglottitis 07/03/2014 07/30/2014 Overview: She has a viral infections that is Last Assessment & Plan: She has been having sore throat since 4 days, Post nasal drainage, Threw up all day Monday, couldn't breathe, also had severe cough. Chest hurting. Went to er , was told she had viral pharyngitis and bronchitis. She cannot swallow at this point, And has trouble breathing. Her saliva is pooling. She also has asthma and doesn't not have a inhaler at this point. documented as of this encounter (statuses as of 11/16/2022) [facility]2017 History of Past illness Narrative* Problem Noted Date Resolved Date Abdominal cramping 06/27/2017 07/20/2021 Epiglottitis 07/03/2014 07/30/2014 Overview: She has a viral infections that is Last Assessment & Plan: She has been having sore throat since 4 days, Post nasal drainage, Threw up all day Monday, couldn't breathe, also had severe cough. Chest hurting. Went to er , was told she had viral pharyngitis and bronchitis. She cannot swallow at this point, And has trouble breathing. Her saliva is pooling. She also has asthma and doesn't not have a inhaler at this point. documented as of this encounter (statuses as of 11/18/2022) [facility] Note Date/Time July 22, 2025 9:41am [facility] Medical Records Department [address] [place] [address] Counseling Note - Pharmacy 07/22/25 0940 MR#: [id number] Acct: [id number] Name: SONIA SZYMANSKI Rep #:[id number] : 1995 30 From: Tom Reed PCP: Dr. Isaias Bradley MD Status:ADM I N Y Location: [place] [id number] Counseling Pharmacy Service has performed discharge medication reconciliation and counseling for this patient. The patient's discharge medication list was reviewed for discrepancies and discrepancies were resolved. The patient was counseled on the following discharge medications and changes in medications for homegoing were reviewed. The Reason for Use, instructions for use, and potential side effects were reviewed for all new medications. The patient's questions regarding all of their medications were answered. 1. Dexamethasone taper 2. Oxycodone 5 mg PO Q8H PRN pain The patient was able to verbally demonstrate an understanding of their dischargemedications. Medications at Discharge Home Medications albuterol sulfate 90 mcg/actuation aerosol inhaler (Ventolin HFA) 2 inh inhalation Q4H PRN sob 08/09/22 pantoprazole 40 mg tablet,delayed release 40 mg PO DAILY see pcp 02/23/23 atorvastatin 10 mg tablet 10 mg PO DAILY hyperlipidemia 07/24/23 clomipramine 50 mg capsule 100 mg PO BID see pcp 07/24/23 levothyroxine 125 mcg tablet 125 mcg PO DAILY see pcp 07/24/23 alprazolam 0.5 mg tablet 0.5 mg PO Q8H PRN anxiety 02/16/25 empagliflozin 10 mg tablet (Jardiance) 10 mg PO DAILY see pcp 02/16/25 lamotrigine 100 mg tablet 100 mg PO DAILY see pcp 02/16/25 lurasidone 60 mg tablet 60 mg PO QPM see pcp 02/16/25 topiramate 25 mg tablet 25 mg PO QHS migraine 02/16/25 dexamethasone 0.75 mg tablet 0.75 mg PO Q24H 06/16/25 ondansetron 4 mg disintegrating tablet 4 mg PO TID PRN nausea/vomiting 07/20/25 potassium chloride 10 mEq tablet,extended release 10 meq PO BID 07/20/25 dexamethasone 1.5 mg tablet 1.5 mg PO DAILY #18 tabs 07/22/25 oxycodone 5 mg tablet 5 mg PO Q8H PRN pain 3 days #10 tabs 07/22/25 07/22/25 0941 <Electronically signed by Tom north> Date _ Tom Sanchez Signature (if applicable): Date CC: ~ Signed [facility] Work Phone: Discharlx summary Author Mode Christianson [facility] Note Date/Time July 22, 2025 8:41am [facility] Medical Records Department [address] [place] [address] Instructions for Home/Discharge Instructions 07/22/25 0835 MR#: [id number] Acct: [id number] Name: SONIA SZYMANSKI Rep #:[id number] : 1995 30 From: Mode briceño MD PCP: Dr. Isaias Bradley MD Status:ADM I N Discharge Instructions DC O2, CPAP, BIPAP needs Home O2 Discharge instructions: No Dressing / Incision Discharge Activity: Return to Normal Activity Dressing / Incision Call your doctor if you observe: Fever of 101 or Higher, Shortness of breath, Dizziness, Fainting spells, Swelling in the ankles, Chest pain and Increased palpitations (irregular heartbeat) Follow Up Care Test Results: Test results from this visit will be discussed in further detail at your follow- up appointment, if applicable. Discharge Plan Admission Admit Date/Time: 07/20/25 15:05 Attending Provider: Mode Christianson Primary Care Provider: Isaias Bradley Consulting Providers: Mary Wang Discharge Orders/Prescriptions Prescriptions: New dexamethasone 1.5 mg tablet 1.5 mg PO DAILY Qty: 18 0RF Rx Instructions: Take 3 tablets daily for 3 days then 2 tablets daily for 3 days then 1 tabletdaily for 3 days then resume your home dosing oxycodone 5 mg tablet 5 mg PO Q8H PRN (Reason: pain) 3 Days Qty: 10 0RF Continued albuterol sulfate [Ventolin HFA] 90 mcg/actuation HFA aerosol inhaler 2 inh INHALATION Q4H PRN (Reason: sob) Patient Comments: Inhale 2 Puffs as instructed every 4 hours as needed. pantoprazole 40 mg tablet,delayed release (DR/EC) 40 mg PO DAILY atorvastatin 10 mg tablet 10 mg PO DAILY Patient Comments: TAKE 1 TABLET BY MOUTH ONCE DAILY levothyroxine 125 mcg tablet 125 mcg PO DAILY Patient Comments: Take 1 tablet by mouth once daily. M=S AND 1.5 ON MONDAY clomipramine 50 mg capsule 100 mg PO BID alprazolam 0.5 mg tablet 0.5 mg PO Q8H PRN (Reason: anxiety) topiramate 25 mg tablet 25 mg PO QHS lurasidone 60 mg tablet 60 mg PO QPM lamotrigine 100 mg tablet 100 mg PO DAILY Jardiance 10 mg tablet 10 mg PO DAILY ondansetron 4 mg tablet,disintegrating 4 mg PO TID PRN (Reason: nausea/vomiting) potassium chloride 10 mEq tablet extended release 10 meq PO BID dexamethasone 0.75 mg tablet 0.75 mg PO Q24H Referrals / Follow Up: Isaias Bradley MD [Primary Care Provider, Medical] - Within 1 Week Disposition Disposition (needs filled in before D/C Order can be placed): Home, Self Care 07/22/25 0841<Electronically signed by Mode Christianson MD>Mode Christianson MD CC: Dr. Mary Wang MD; Dr. Isaias Bradley MD ~ Signed [facility] Work Phone: Discharge summary [facility] Note Date/Time July 22, 2025 10:02am [facility] Medical Records Department [address] [place] [id number] Discharge Summary 07/22/25 0953 MR#: [id number] Acct: [id number] Name: SONIA SZYMANSKI Rep #:[id number] : 1995 30 From: Mode briceño MD PCP: Dr. Isaias Bradley MD Status:ADM I N Location: [place] [address] Providers Date of Admission: 07/20/25 Primary Care Physician: Dr. Isaias Bradley MD Reason For Visit: ADRENAL CRISIS Diagnosis Discharge Diagnosis (1) Acute adrenal insufficiency: Status: Acute Code(s): E27.40 - Unspecified adrenocortical insufficiency (2) Elevated liver enzymes: Status: Acute Code(s): R74.8 - Abnormal levels of other serum enzymes Medications at Discharge Home Medications albuterol sulfate 90 mcg/actuation aerosol inhaler (Ventolin HFA) 2 inh inhalation Q4H PRN sob 08/09/22 pantoprazole 40 mg tablet,delayed release 40 mg PO DAILY see pcp 02/23/23 atorvastatin 10 mg tablet 10 mg PO DAILY hyperlipidemia 07/24/23 clomipramine 50 mg capsule 100 mg PO BID see pcp 07/24/23 levothyroxine 125 mcg tablet 125 mcg PO DAILY see pcp 07/24/23 alprazolam 0.5 mg tablet 0.5 mg PO Q8H PRN anxiety 02/16/25 empagliflozin 10 mg tablet (Jardiance) 10 mg PO DAILY see pcp 02/16/25 lamotrigine 100 mg tablet 100 mg PO DAILY see pcp 02/16/25 lurasidone 60 mg tablet 60 mg PO QPM see pcp 02/16/25 topiramate 25 mg tablet 25 mg PO QHS migraine 02/16/25 dexamethasone 0.75 mg tablet 0.75 mg PO Q24H 06/16/25 ondansetron 4 mg disintegrating tablet 4 mg PO TID PRN nausea/vomiting 07/20/25 potassium chloride 10 mEq tablet,extended release 10 meq PO BID 07/20/25 dexamethasone 1.5 mg tablet 1.5 mg PO DAILY #18 tabs 07/22/25 oxycodone 5 mg tablet 5 mg PO Q8H PRN pain 3 days #10 tabs 07/22/25 Hospital Course Operations None Procedures None Summary of Care Provided Minutes Spent on Discharge: 33 Hospital Course: Per HPI: SONIA SZYMANSKI, is a 30-year-old female history of Wabasso's disease, GERD, hypothyroidism, depression and anxiety who presented to [facility] ED 07/20/2025 with generalized weakness and myalgias and she was concerned she may be having an Wabasso's flare. Recently evaluated by her mold operator at [facility] and had low cortisol level so they increasedher Decadron to 0.75 mg daily, for the past week she started getting sick with cold-like symptoms and 3 days ago she started with vomiting and diarrhea. She was seen at [facility] yesterday and was given fluids as well as IV steroids and potassium but she is not feeling any better. Also complaining of some facial swelling which is typical for her Slade's flare. In the ED temp 98, heart rate 100 and blood pressure 138/85, respiratory rate 16 pulse ox 100% on room air. CBC with a white count of 14 and hemoglobin of 12, CMP with a BUN of 8 and creatinine 0.79, elevated liver function tests with AST of 288, ALT 502, alk phos 177, cortisol 0.12, serum negative, UA ordered but not yet obtained. Given patient's symptoms and low cortisol consistent with Slade's flare hospitalist contacted for admission. Patient evaluated at bedside, she reports 1 week ago she had URI-like symptoms with some cough, congestion, shortness of breath with some intermittent chest pain, nausea and congestion which has significantly improved however on Monday she felt herself started to have symptoms consistent with adrenal crisis. She was feeling weak, achy, tired and she started having significant nausea as well as diarrhea. She had a syncopal episode yesterday when she went from laying on the couch to sitting up that was brief and she went to [place] and was given fluids and potassium and discharged home however she reports she continues to feel worse soshe presented to [facility] ED. Reports her only URI symptom chela little bit congestion still however the rest of her symptoms have resolved, does have headache, diarrhea and nausea but is the same as previous flares, weakness, achiness, fatigue and right upper quadrant abdominal pain. Discussed her elevated liver enzymes and she reports that in the [id number] past she had a CT of her abdomen for this right upper quadrant pain and that was when shewas told she has GROSS and no other acute abnormalities were found. Her current pain is the same pain she gets every time she has a flare. Patient notes some increased urinary frequency without any burning on urination. No fevers, no changes in vision. No rashes, bleeding, bruising. Also notes some swelling in her face which she reports is also consistent with her symptoms when she has acute adrenal insufficiency. Hospital Course: 1. 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 Respiratory panels were negative though. LFTs were also elevated which is not inconsistent with her past though they were moreelevated than usual. They have significantly improved on the day of discharge and I do recommend that she follow-up with gastroenterology as an outpatient. In the meantime she was placed on stress dose steroids of hydrocortisone 50 mg IV 4 times daily. She is feeling a little bit better despite having her abdominal pain. She would like to go home today with the steroid taper and the oxycodone that she had been given the last time she was here in the hospital. She expressed understanding of the risk and benefits of going home and would like to go home today. 2. Hypothyroidism, anxiety, depression, GERD are all chronic medical conditionswhich complicate her care. Her home medications were continued where appropriate Physical Exam Narrative General: Alert, Oriented x3, Cooperative, No apparent distress HEENT: Atraumatic, PERRLA, EOMI, Normocephalic Oral: Moist Mucosa Neck: Supple, No JVD Lungs: Diminished, Normal air movement, No rhonchi, No wheeze, No rales Cardiovascular: Regular rate, Regular Rhythm, Normal S1, Normal S2, No murmurs Abdomen: Soft, TTP RUQ, Non-Distended, No Hepato-splenomegaly Extremities: No edema, Capillary Refill Less than 3 Seconds Skin: No rashes, No breakdown Musculoskeletal: No Tenderness to Palpation of Joints or Extremities Neurological: No focal neurological deficits, Motor Exam 5/5 strength throughout, Sensory exam intact to light touch and pain Psych/Mental Status: Normal Affect, Appropriate Weight / BMI Weight Weight: 194 lb 0.108 oz Body Mass Index (BMI) 32.3 ABG / Lab / Microbiology Data 07/22/25 05:06 07/22/25 05:06 Laboratory: Laboratory Results - last 24 hr 07/22/25 05:06: WBC 12.3 H, RBC 4.41, Hgb 10.7 L, Hct 35.4 L, MCV 80.3 L, MCH 24.3 L, MCHC 30.2 L, RDW Std Deviation 48.9 H, RDW Coeff of Renetta 17.0 H, Plt Count 452 H, MPV 9.5, Immature Gran % (Auto) 1.600 H, Neut % (Auto) 68.9, Lymph % (Auto) 21.8, [place] % (Auto) 7.5, Eos % (Auto) 0.0, Baso % (Auto) 0.2, Absolute Neuts (auto) 8.5 H, Absolute Lymphs (auto) 2.69, Nucleated RBC % 0, Sodium 140, Potassium 4.0, Chloride 103, Carbon Dioxide 23.1, Anion Gap 13, BUN 7, Creatinine 0.72, Estim Creat Clear Calc 122.90, Est GFR (MDRD) Non-Af 115, BUN/Creatinine Ratio 9.1 L, Glucose 109 H, Calcium 8.8, Total Bilirubin 0.21, AST81 H, ALT 346 H, Alkaline Phosphatase 148 H, Total Protein 6.4, Albumin 3.5, Globulin 3.0, Albumin/Globulin Ratio 1.2 Microbiology: Microbiology 07/20/25 16:31 Mucosa - Nasopharyngeal Respiratory Panel (PCR) - Final 07/20/25 14:30 Mucosa - Nose SARS-CoV-2, Influenza & RSV (PCR) - Final D/C Instructions Call your doctor if you observe: Fever of 101 or Higher, Shortness of breath, Dizziness, Fainting spells, Swelling in the ankles, Chest pain and Increased palpitations (irregular heartbeat) DC O2, CPAP, BIPAP Needs Home O2 Discharge instructions: No Meaningful Use Info Meaningful Use Meaningful Use Diagnoses (Choose all that apply): None applicable Discharge Plan Admission Admit Date/Time: 07/20/25 15:05 Attending Provider: Mode Christianson Primary Care Provider: Isaias Bradley Consulting Providers: Mary Wang Discharge Orders/Prescriptions Prescriptions: New dexamethasone 1.5 mg tablet 1.5 mg PO DAILY Qty: 18 0RF Rx Instructions: Take 3 tablets daily for 3 days then 2 tablets daily for 3 days then 1 tabletdaily for 3 days then resume your home dosing oxycodone 5 mg tablet 5 mg PO Q8H PRN (Reason: pain) 3 Days Qty: 10 0RF Continued albuterol sulfate [Ventolin HFA] 90 mcg/actuation HFA aerosol inhaler 2 inh INHALATION Q4H PRN (Reason: sob) Patient Comments: Inhale 2 Puffs as instructed every 4 hours as needed. pantoprazole 40 mg tablet,delayed release (DR/EC) 40 mg PO DAILY atorvastatin 10 mg tablet 10 mg PO DAILY Patient Comments: TAKE 1 TABLET BY MOUTH ONCE DAILY levothyroxine 125 mcg tablet 125 mcg PO DAILY Patient Comments: Take 1 tablet by mouth once daily. M=S AND 1.5 ON MONDAY clomipramine 50 mg capsule 100 mg PO BID alprazolam 0.5 mg tablet 0.5 mg PO Q8H PRN (Reason: anxiety) topiramate 25 mg tablet 25 mg PO QHS lurasidone 60 mg tablet 60 mg PO QPM lamotrigine 100 mg tablet 100 mg PO DAILY Jardiance 10 mg tablet 10 mg PO DAILY ondansetron 4 mg tablet,disintegrating 4 mg PO TID PRN (Reason: nausea/vomiting) potassium chloride 10 mEq tablet extended release 10 meq PO BID dexamethasone 0.75 mg tablet 0.75 mg PO Q24H Referrals / Follow Up: Isaias Bradley MD [Primary Care Provider, Medical] - Within 1 Week Disposition Disposition (needs filled in before D/C Order can be placed): Home, Self Care Charges/Coding Visit Charges Inpatient E&M: 09382 Disch Hosp >30min 07/22/25 1002 <Electronically signed by Mode Christianson MD> Cosigner Signature (if applicable): CC: Dr. Mode Christianson MD; Dr. Isaias Bradley MD~ Signed [facility] Work Phone: Evaluation note* Diagnosis Gross hematuria- Primary Urgency of urination Urge incontinence [facility] [place] [facility]* Diagnosis ACI (adrenal cortical insufficiency) (HCC) Glucocorticoid deficiency Hypoglycemia Hypoglycemia, unspecified [facility] [place] [facility]* Diagnosis Elevated antinuclear antibody (BOBBY) level- Primary Other and unspecified nonspecific immunological findings Malar rash Rash and other nonspecific skin eruption Polyarthralgia Pain in joint, multiple sites Dysphagia, unspecified type Recurrent oral ulcers Other and unspecified diseases of the oral soft tissues History of thyroid disease Personal history of other endocrine, metabolic, and immunity disorders History of Wabasso's disease Personal history of other endocrine, metabolic, and immunity disorders [facility] [place] [facility]* Diagnosis Sore throat- Primary Acute pharyngitis [facility] [place] [facility]* Diagnosis Acute midline low back pain without sciatica- Primary [facility] [place] [facility]* Diagnosis Surgical menopause- Primary Symptomatic states associated with artificial menopause Acute right-sided low back pain with right-sided sciatica [facility] [place] [facility]* Diagnosis Sore throat- Primary Acute pharyngitis [facility] [place] [facility]* Diagnosis Surgical menopause Symptomatic states associated with artificial menopause [facility] [place] [facility]* Diagnosis Nausea and vomiting, unspecified vomiting type- Primary Physical deconditioning Debility, unspecified Abdominal pain due to injury [facility] Work Phone: Evaluation note* Diagnosis Hyperemesis- Primary Persistent vomiting Wabasso's disease (HCC) Glucocorticoid deficiency Recurrent major depression in partial remission (HCC) Major depressive disorder, recurrent episode, in partial or unspecified remission Elevated liver enzymes Other nonspecific abnormal serum enzyme levels Malnutrition of mild degree (HCC) Malnutrition of mild degree documented in this encounter [facility] note* Diagnosis Acute midline low back pain without sciatica Reaction, adjustment, with anxious, depressed mood Adjustment disorder with mixed anxiety and depressed mood [facility] [place] [facility]* Diagnosis Slade's disease (HCC)- Primary Glucocorticoid deficiency documented in this encounter [facility] note* Diagnosis Diarrhea, unspecified type- Primary Abnormal LFTs Other abnormal blood chemistry [facility] [place] [facility]* Diagnosis NO SHOW- Primary documented in this encounter [facility] note* Diagnosis Onset Date Resolution Status Addisonian crisis acute [facility] Work Phone: Evaluation note* Diagnosis Onset Date Resolution Status Addisonian crisis acute Epigastric pain acute Lactic acidosis acute Nausea & vomiting acute [facility] Work Phone: Evaluation note* Diagnosis Addisonian crisis (HCC)- Primary Glucocorticoid deficiency [facility] [place] [facility]* Diagnosis Surgical menopause Symptomatic states associated with artificial menopause [facility] [place] [facility]* Diagnosis Onset Date Resolution Status Epigastric pain acute Nausea & vomiting acute Lactic acidosis resolved [facility] Work Phone: Evaluation note* Diagnosis Retention of urine- Primary Retention of urine, unspecified [facility] [place] [facility]* Diagnosis Retention of urine- Primary Retention of urine, unspecified [facility] [place] [facility]* Diagnosis Diarrhea, unspecified type- Primary documented in this encounter [facility] note* Diagnosis Flu-like symptoms- Primary Other general symptoms Sore throat Acute pharyngitis [facility] [place] [facility]* Diagnosis Reaction, adjustment, with anxious, depressed mood Adjustment disorder with mixed anxiety and depressed mood [facility] [place] [facility]* Diagnosis Slade's disease (HCC) Glucocorticoid deficiency [facility] [place] [facility]* Diagnosis Slade's disease (HCC)- Primary Glucocorticoid deficiency Acute bilateral low back pain with left-sided sciatica Malnutrition of mild degree (HCC) Malnutrition of mild degree Recurrent major depression in partial remission (HCC) Major depressive disorder, recurrent episode, in partial or unspecified remission Reaction, adjustment, with anxious, depressed mood Adjustment disorder with mixed anxiety and depressed mood Hyperemesis Persistent vomiting Urinary retention Retention of urine, unspecified [facility] [place] [facility]* Diagnosis 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) [E27.1 (ICD-10-CM)] Glucocorticoid deficiency [facility] [place] [facility]* Diagnosis Chronic gastritis without bleeding, unspecified gastritis type- Primary Hyperemesis Persistent vomiting [facility] [place] [facility]* Diagnosis Surgical menopause Symptomatic states associated with artificial menopause [facility] [place] [facility]* Diagnosis Dehydration- Primary Weight loss Loss of weight Vomiting without nausea, unspecified vomiting type Diarrhea, unspecified type Anorexia Tachycardia Tachycardia, unspecified Syncope, unspecified syncope type Lactate blood increase Acidosis Adrenal insufficiency (Slade's disease) (HCC) Glucocorticoid deficiency Weakness Other malaise and fatigue Prediabetes Other abnormal glucose Seizure-like activity (HCC) Other convulsions Unable to care for self [facility] [place] [facility]* Diagnosis Vomiting without nausea, unspecified vomiting type- Primary Seizure-like activity (HCC) Other convulsions Seizure (HCC) Other convulsions Migraine variant with headache Chronic gastritis without bleeding, unspecified gastritis type Syncope, unspecified syncope type 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 Weight loss Loss of weight Reaction, adjustment, with anxious, depressed mood Adjustment disorder with mixed anxiety and depressed mood Prediabetes Other abnormal glucose Elevated liver enzymes Other nonspecific abnormal serum enzyme levels Gastritis without bleeding, unspecified chronicity, unspecified gastritis type SLE (systemic lupus erythematosus related syndrome) (HCC) Systemic lupus erythematosus [facility] [place] [facility]* Diagnosis Hyperemesis Persistent vomiting [facility] [place] [facility]* Diagnosis Malnutrition of mild degree (HCC)- Primary Malnutrition of mild degree [facility] [place] [facility]* Diagnosis Elevated liver enzymes- Primary Other nonspecific abnormal serum enzyme levels [facility] [place] [facility]* Diagnosis Reaction, adjustment, with anxious, depressed mood Adjustment disorder with mixed anxiety and depressed mood [facility] [place] [facility]* Diagnosis ACI (adrenal cortical insufficiency) (HCC)- Primary 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 Controlled type 2 diabetes mellitus without complication, without long-term current use of insulin (HCC) documented [facility] [place] [facility]* Diagnosis Reaction, adjustment, with anxious, depressed mood Adjustment disorder with mixed anxiety and depressed mood [facility] [place] [facility]* Diagnosis Mixed obsessional thoughts and acts- Primary Panic disorder with agoraphobia Agoraphobia with panic disorder Chronic post-traumatic stress disorder (PTSD) Major depressive disorder, recurrent episode, moderate (HCC) Major depressive disorder, recurrent episode, moderate [facility] [place] [facility]* Diagnosis Chronic pain syndrome- Primary Seizure-like activity (HCC) Other convulsions Other migraine without status migrainosus, intractable Noninfectious gastroenteritis, unspecified type Adrenal insufficiency (Slade's disease) (HCC) Glucocorticoid deficiency SLE (systemic lupus erythematosus related syndrome) (HCC) Systemic lupus erythematosus Post-surgical hypothyroidism Postsurgical hypothyroidism Recurrent major depression in partial remission (HCC) Major depressive disorder, recurrent episode, in partial or unspecified remission documented in this encounter [facility] note* Diagnosis Viral syndrome- Primary Unspecified viral infection, in conditions classified elsewhere and of unspecified site Sore throat Acute pharyngitis [facility] [place] [facility]* Diagnosis Lumbar pain- Primary Lumbago [facility] [place] [facility]* Diagnosis Onset Date Resolution Status Epigastric pain acute Graves disease acute Nausea & vomiting acute Seizure disorder acute [facility] Work Phone: Evaluation note* Diagnosis Mixed obsessional thoughts and acts Panic disorder with agoraphobia Agoraphobia with panic disorder Chronic post-traumatic stress disorder (PTSD) Major depressive disorder, recurrent episode, moderate (HCC) Major depressive disorder, recurrent episode, moderate documented in this encounter [facility] note* Diagnosis Mixed obsessional thoughts and acts Panic disorder with agoraphobia Agoraphobia with panic disorder Chronic post-traumatic stress disorder (PTSD) Major depressive disorder, recurrent episode, moderate (HCC) Major depressive disorder, recurrent episode, moderate [facility] [place] [facility]* Diagnosis Slade's disease (HCC) Glucocorticoid deficiency [facility] [place] [facility]* Diagnosis Seizure (HCC) Other convulsions [facility] Diagnosis Urinary frequency- Primary [facility] [place] [facility]* Diagnosis Mixed obsessional thoughts and acts Panic disorder with agoraphobia Agoraphobia with panic disorder Chronic post-traumatic stress disorder (PTSD) Major depressive disorder, recurrent episode, moderate (HCC) Major depressive disorder, recurrent episode, moderate [facility] [place] [facility]* Diagnosis Anxiety with depression- Primary Seizure-like activity (HCC) Other convulsions Migraine variant with headache 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 [facility] [place] [facility]* Diagnosis Surgical menopause Symptomatic states associated with artificial menopause [facility] [place] [facility]* Diagnosis Hepatitis, acute- Primary Acute and subacute necrosis of liver 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 SLE (systemic lupus erythematosus related syndrome) (HCC) Systemic lupus erythematosus [facility] [place] [facility]* Diagnosis Hypokalemia- Primary Hypopotassemia [facility] [place] [facility]* Diagnosis Lumbar pain Lumbago [facility] Diagnosis Mixed obsessional thoughts and acts Panic disorder with agoraphobia Agoraphobia with panic disorder Chronic post-traumatic stress disorder (PTSD) Major depressive disorder, recurrent episode, moderate (HCC) Major depressive disorder, recurrent episode, moderate [facility] [place] [facility]* Diagnosis Right upper quadrant abdominal pain- Primary Abdominal pain, right upper quadrant Right lower quadrant abdominal pain Abdominal pain, right lower quadrant Nausea and vomiting, unspecified vomiting type 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 Chronic constipation Unspecified constipation [facility] Diagnosis Surgical menopause Symptomatic states associated with artificial menopause Lumbar pain Lumbago [facility] Diagnosis Mixed obsessional thoughts and acts Panic disorder with agoraphobia Agoraphobia with panic disorder Chronic post-traumatic stress disorder (PTSD) Major depressive disorder, recurrent episode, moderate (HCC) Major depressive disorder, recurrent episode, moderate [facility] [place] [facility]* Diagnosis Severe episode of recurrent major depressive disorder, with psychotic features (HCC)- Primary Mixed obsessional thoughts and acts Panic disorder with agoraphobia Agoraphobia with panic disorder Chronic post-traumatic stress disorder (PTSD) [facility] [place] [facility]* Diagnosis Major depressive disorder, recurrent episode, moderate (HCC)- Primary Major depressive disorder, recurrent episode, moderate Mixed obsessional thoughts and acts Panic disorder with agoraphobia Agoraphobia with panic disorder Chronic post-traumatic stress disorder (PTSD) [facility] [place] [facility]* Diagnosis Diarrhea, unspecified type [facility] [place] [facility]* Diagnosis Major depressive disorder, recurrent episode, moderate (HCC)- Primary Major depressive disorder, recurrent episode, moderate Mixed obsessional thoughts and acts Panic disorder with agoraphobia Agoraphobia with panic disorder Chronic post-traumatic stress disorder (PTSD) [facility] [place] [facility]* Diagnosis 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 note* Diagnosis Epigastric pain- Primary Abdominal pain, epigastric Diarrhea, unspecified type [facility] [place] [facility]* Diagnosis NO SHOW- Primary [facility] [place] [facility]* Diagnosis NO SHOW- Primary [facility] [place] [facility]* Diagnosis Surgical menopause Symptomatic states associated with artificial menopause [facility] [place] [facility]* Diagnosis Controlled type 2 diabetes mellitus without complication, without long-term current use of insulin (HCC)- Primary ACI (adrenal cortical insufficiency) (HCC) 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 [facility] [place] [facility]* Diagnosis Major depressive disorder, recurrent episode, moderate (HCC)- Primary Major depressive disorder, recurrent episode, moderate Mixed obsessional thoughts and acts Panic disorder with agoraphobia Agoraphobia with panic disorder Chronic post-traumatic stress disorder (PTSD) documented [facility] [place] [facility]* Diagnosis APPOINTMENT CANCELLED- [facility] Diagnosis Severe episode of recurrent major depressive disorder, without psychotic features (HCC)- Primary Mixed obsessional thoughts and acts Panic disorder with agoraphobia Agoraphobia with panic disorder Chronic post-traumatic stress disorder (PTSD) [facility]* Diagnosis Migraine variant with headache- Primary Class 2 obesity with body mass index (BMI) of 35.0 to 35.9 in adult, unspecified obesity type, unspecified whether serious comorbidity present [facility]* Diagnosis Major depressive disorder, recurrent episode, moderate (HCC)- Primary Major depressive disorder, recurrent episode, moderate Mixed obsessional thoughts and acts Panic disorder with agoraphobia Agoraphobia with panic disorder Chronic post-traumatic stress disorder (PTSD) [facility]* Diagnosis APPOINTMENT CANCELLED- Primary [facility] Diagnosis NO SHOW- Primary [facility]* Diagnosis Mixed obsessional thoughts and acts Panic disorder with agoraphobia Agoraphobia with panic disorder Chronic post-traumatic stress disorder (PTSD) [facility] [place] [facility]* Diagnosis NO SHOW- Primary [facility] [place] [facility]* Diagnosis Migraine with aura, not intractable, without status migrainosus [facility] [place] [facility]* Diagnosis Type 2 diabetes mellitus with hypoglycemia without coma, without long-term current use of insulin ([facility]) [E11.649]- Primary 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.40] Glucocorticoid deficiency Class 2 severe obesity due to excess calories with serious comorbidity and body mass index (BMI) of 37.0 to 37.9 in adult ([facility]) [E66.01, Z68.37] 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, E06.3] documented [facility] [place] [facility]* Diagnosis NO SHOW- Primary [facility]* Diagnosis Chronic pain syndrome- Primary Hypoglycemia Hypoglycemia, unspecified Elevated liver enzymes Other nonspecific abnormal serum enzyme levels Fatty liver Other chronic 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) ([facility]) Glucocorticoid deficiency [facility] [place] [facility]* Diagnosis Severe episode of recurrent major depressive disorder, without psychotic features (HCC)- Primary Chronic post-traumatic stress disorder (PTSD) Mixed obsessional thoughts and acts Panic disorder with agoraphobia Agoraphobia with panic disorder [facility] [place] [facility]* Diagnosis Drug side effects- Primary Unspecified adverse effect of unspecified drug, medicinal and biological substance Chronic post-traumatic stress disorder (PTSD) Mixed obsessional thoughts and acts [facility] [place] [facility]* Diagnosis Gastroesophageal reflux disease without esophagitis- Primary Esophageal reflux [facility] [place] [facility]* Diagnosis Mixed obsessional thoughts and acts- Primary Chronic post-traumatic stress disorder (PTSD) Panic disorder with agoraphobia Agoraphobia with panic disorder [facility] [place] [facility]* Diagnosis No-show for appointment- Primary [facility] [place] [facility]* Diagnosis Elevated antinuclear antibody (BOBBY) level Other and unspecified nonspecific immunological findings Dysphagia, unspecified type Malar rash Rash and other nonspecific skin eruption Polyarthralgia Pain in joint, multiple sites Recurrent oral ulcers Other and unspecified diseases of the oral soft tissues History of thyroid disease Personal history of other endocrine, metabolic, and immunity disorders History of Slade's disease Personal history of other endocrine, metabolic, and immunity disorders [facility] [place] [facility]* Diagnosis Pain in both lower extremities- Primary Acute bilateral low back pain with right-sided sciatica [facility]* Diagnosis Panic disorder with agoraphobia- Primary Agoraphobia with panic disorder Chronic post-traumatic stress disorder (PTSD) Encounter for long-term (current) use of medications Encounter for long-term (current) use of other medications Mixed obsessional thoughts and acts Major depressive disorder, recurrent episode, moderate (HCC) Major depressive disorder, recurrent episode, moderate [facility] [place] [facility]* Diagnosis Panic disorder with agoraphobia Agoraphobia with panic disorder Chronic post-traumatic stress disorder (PTSD) documented [facility] [place] [facility]* Diagnosis No-show for appointment- Primary [facility] [place] [facility]* Diagnosis Mixed obsessional thoughts and acts- Primary Panic disorder with agoraphobia Agoraphobia with panic disorder Chronic post-traumatic stress disorder (PTSD) Major depressive disorder, recurrent episode, moderate (HCC) Major depressive disorder, recurrent episode, moderate Encounter for long-term (current) use of medications Encounter for long-term (current) use of other medications [facility] Diagnosis Panic disorder with agoraphobia Agoraphobia with panic disorder Chronic post-traumatic stress disorder (PTSD) documented [facility] [place] [facility]* Diagnosis Major depressive disorder, recurrent episode, moderate (HCC)- Primary Major depressive disorder, recurrent episode, moderate Panic disorder with agoraphobia Agoraphobia with panic disorder Chronic post-traumatic stress disorder (PTSD) Mixed obsessional thoughts and acts Encounter for long-term (current) use of medications Encounter for long-term (current) use of other medications Psychosocial stressors Other psychological or physical stress, not elsewhere classified [facility]* Diagnosis Panic disorder with agoraphobia Agoraphobia with panic disorder Chronic post-traumatic stress disorder (PTSD) Mixed obsessional thoughts and acts [facility]* Diagnosis Acute otitis media, right- Primary Unspecified otitis media [facility] [place] [facility]* Diagnosis Panic disorder with agoraphobia- Primary Agoraphobia with panic disorder Chronic post-traumatic stress disorder (PTSD) Encounter for long-term (current) use of medications Encounter for long-term (current) use of other medications Mixed obsessional thoughts and acts Psychosocial stressors Other psychological or physical stress, not elsewhere classified Major depressive disorder, recurrent episode, moderate (HCC) Major depressive disorder, recurrent episode, moderate [facility] [place] [facility]* Diagnosis Panic disorder with agoraphobia Agoraphobia with panic disorder Chronic post-traumatic stress disorder (PTSD) documented [facility] [place] [facility]* Diagnosis Adrenal crisis (HCC)- Primary Glucocorticoid deficiency Upper respiratory tract infection, unspecified type Other migraine without status migrainosus, intractable Seizure-like activity ([facility]) Other convulsions Migraine variant with headache Mild intermittent asthma without complication ([facility]) Unspecified asthma Graves disease Toxic diffuse goiter without mention of thyrotoxic crisis or storm Weakness Other malaise and fatigue Prediabetes Other abnormal glucose Recurrent major depression in partial remission Major depressive disorder, recurrent episode, in partial or unspecified remission Mixed anxiety depressive disorder Dysthymic disorder DIOGO (generalized anxiety disorder) Generalized anxiety disorder Anemia, unspecified type 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 [facility] [place] [facility]* Diagnosis Migraine variant with headache Seizure-like activity (HCC) Other convulsions Class 2 severe obesity with serious comorbidity and body mass index (BMI) of 35.0 to 35.9 in adult, unspecified obesity type (HCC) [facility] [place] [facility]* Diagnosis Mixed obsessional thoughts and acts- Primary Panic disorder with agoraphobia Agoraphobia with panic disorder Chronic post-traumatic stress disorder (PTSD) Psychosocial stressors Other psychological or physical stress, not elsewhere classified Encounter for long-term (current) use of medications Encounter for long-term (current) use of other medications documented in this encounter [facility] note* Diagnosis Panic disorder with agoraphobia- Primary Agoraphobia with panic disorder Mixed obsessional thoughts and acts Chronic post-traumatic stress disorder (PTSD) Psychosocial stressors Other psychological or physical stress, not elsewhere classified Major depressive disorder, recurrent episode, moderate (HCC) Major depressive disorder, recurrent episode, moderate Encounter for long-term (current) use of medications Encounter for long-term (current) use of other medications documented in this encounter 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 Post-surgical hypothyroidism Postsurgical hypothyroidism Chronic post-traumatic stress disorder (PTSD) documented [facility] [place] [facility]* Diagnosis Contusion of multiple sites of left shoulder and upper arm, subsequent encounter Contusion of left hip, subsequent encounter [facility] [place] [facility]* Diagnosis 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 Isaias Bradley MD Status:ADM I N Location: [place] [address] HPI - General General Date of Admission: 07/20/25 Date of Service: 07/20/25 Chief Complaint: Weakness, fatigue, aches, nausea and diarrhea HPI Narrative SONIA SZYMANSKI, is a 30-year-old female history of Slade's disease, GERD, hypothyroidism, depression and anxiety who presented to [facility] ED 07/20/2025 with generalized weakness and myalgias and she was concerned she may be having an Wabasso's flare. Recently evaluated by her mold operator at [facility] and had low cortisol level so they increasedher Decadron to 0.75 mg daily, for the past week she started getting sick with cold-like symptoms and 3 days ago she started with vomiting and diarrhea. She was seen at [facility] yesterday and was given fluids as well as IV steroids and potassium but she is not feeling any better. Also complaining of some facial swelling which is typical for her Wabasso's flare. In the ED temp 98, heart rate 100 and blood pressure 138/85, respiratory rate 16 pulse ox 100% on room air. CBC with a white count of 14 and hemoglobin of 12, CMP with a BUN of 8 and creatinine 0.79, elevated liver function tests with AST of 288, ALT 502, alk phos 177, cortisol 0.12, serum negative, UA ordered but not yet obtained. Given patient's symptoms and low cortisol consistent with Wabasso's flare hospitalist contacted for admission. Patient evaluated at bedside, she reports 1 week ago she had URI-like symptoms with some cough, congestion, shortness of breath with some intermittent chest pain, nausea and congestion which has significantly improved however on Monday she felt herself started to have symptoms consistent with adrenal crisis. She was feeling weak, achy, tired and she started having significant nausea as well as diarrhea. She had a syncopal episode yesterday when she went from laying on the couch to sitting up that was brief and she went to [place] and was given fluids and potassium and discharged home however she reports she continues to feel worse selene presented to [facility] ED. Reports her only URI symptom chela little bit congestion still however the rest of her symptoms have resolved, does have headache, diarrhea and nausea but is the same as previous flares, weakness, achiness, fatigue and right upper quadrant abdominal pain. Discussed her elevated liver enzymes and she reports that in the [id number] past she had a CT of her abdomen for this right upper quadrant pain and that was when shewas told she has GROSS and no other acute abnormalities were found. Her current pain is the same pain she gets every time she has a flare. Patient notes some increased urinary frequency without any burning on urination. No fevers, no changes in vision. No rashes, bleeding, bruising. Also notes some swelling in her face which she reports is also consistent with her symptoms when she has acute adrenal insufficiency. [facility] Medical History (Updated 07/20/25 @ 14:[address] Herberth Spear, DO) Abnormal uterine bleeding (AUB) Acute adrenal insufficiency Addisonian crisis Addisons disease Adenomyosis Anxiety and depression Asthma Cardiology follow-up encounter Chest pain Chronic female pelvic pain Depression Diabetes Difficulty swallowing Dysphagia Easy bruising Endometriosis determined by laparoscopy Former smoker Gastric reflux Gastroparesis GI bleed Graves disease History of diverticulitis History of echocardiogram History of IBS History of left heart catheterization History of steroid therapy History of stress test History of ulceration Irregular heart beat Kidney stones Low iron Migraine Migraines Mild intermittent asthma Restless legs Seizures Shortness of breath on exertion Wears glasses Home Medications ?Medication ?Instructions ?Recorded ?Last Taken ?Type albuterol sulfate 90 mcg/actuation 2 inh inhalation Q4 H PRN sob 08/09/22 Unknown History aerosol inhaler (Ventolin HFA) pantoprazole 40 mg tablet,delayed 40 mg PO DAILY see p cp 02/23/23 07/20/25 History release atorvastatin 10 mg tablet 10 mg PO DAILY hyperlipidemi a 07/24/23 07/19/25 History clomipramine 50 mg capsule 100 mg PO BID see pcp 07/2407/19/25 History levothyroxine 125 mcg tablet 125 mcg PO DAILY see pcp 07/24/23 07/20/25 History alprazolam 0.5 mg tablet 0.5 mg PO Q8H PRN anxiety 07/19/25 History empagliflozin 10 mg tablet 10 mg PO DAILY see pcp 01/2207/19/25 History (Jardiance) lamotrigine 100 mg tablet 100 mg PO DAILY see pcp 01/2207/19/25 History lurasidone 60 mg tablet 60 mg PO QPM see pcp 5 07/19/25 History topiramate 25 mg tablet 25 mg PO QHS migraine 07/19/25 History dexamethasone 0.75 mg tablet 0.75 mg PO Q24H 06/16/25 07/20/25 History ondansetron 4 mg disintegrating 4 mg PO TID PRN nausea /vomiting 07/20/25 07/20/25 History tablet potassium chloride 10 mEq 10 meq PO BID 07/20/25 Unkno wn History tablet,extended release Allergy/AdvReac Type Severity Reaction Status Date / Time acetaminophen (From Excedrin Allergy Anaphylaxis Verified 07/20/25 13:07 Migraine) aspirin (From Excedrin Allergy Anaphylaxis Verified 07/20/25 13:07 Migraine) azithromycin (From Zithromax Allergy Anaphylaxis Verified 07/20/25 13:07 Z-[place]) bacitracin (From Neosporin Allergy Swelling Verified 07/20/25 13:07 ([id number])) bacitracin zinc (From Allergy Swelling Verified 07/20/25 13:07 Neosporin ([id number])) caffeine (From Excedrin Allergy Anaphylaxis Verified 07/20/25 13:07 Migraine) latex Allergy Rash Verified 07/20/25 13:07 neomycin sulfate (From Allergy Swelling Verified 07/20/25 13:07 Neosporin ([id number])) polymyxin B (From Neosporin Allergy Swelling Verified 07/20/25 13:07 ([id number])) Family History Uncle Diabetes Cancer lung Father Diabetes Grandfather CVA (cerebral vascular accident) Cancer lung, unsure additional type Uncle Cancer brain Grandmother Cancer lung and unsure additional type Surgical History History of appendectomy History of section History of cholecystectomy History of laparoscopic-assisted vaginal hysterectomy History of laparoscopy History of left salpingo-oophorectomy History of thyroidectomy History of tubal ligation History of wisdom tooth extraction Hx laparoscopic cholecystectomy Social History (Updated 02/16/25 @ 16:54 by Vesta Lucero) household members: spouse housing: house Smoking Status: Former smoker ROS ROS Narrative General: Denies fever/chills HENT: Some headache, still has some congestion, denies sore throat EYES: Denies changes in vision Resp: Denies cough, denies shortness of breath Cardiac: Denies chest pain GI: Right upper quadrant abdominal pain consistent with her previous pain, significant nausea with poor p.o., frequent diarrhea : Urinary frequency Extremity: Denies swelling in extremities, feels she has some swelling in her face similar to previous MSK: Denies weakness Neuro: Denies any numbness/tingling Heme: Denies any bleeding or bruising Skin: Denies rashes Psychiatric: Patient tearful, concerned she is going to lose her job Vital Signs Vital Signs Vital Signs: 07/20/25 13:06 07/20/25 13:25 Temperature 98.0 F Temperature Source Oral Pulse Rate 100 Respiratory Rate 16 Respiratory Pattern Normal Blood Pressure 138/85 H Blood Pressure Mean 102 Pulse Ox 100 Oxygen Delivery Method Room Air Weight Weight: 88.042 kg Body Mass Index (BMI) 32.3 Physical Exam Narrative General: Alert, oriented, patient tearful HEENT: Atraumatic, normocephalic Eyes: Anicteric, normal conjunctiva, extraocular movements grossly intact Neck: Supple Respiratory: Clear to auscultation bilaterally, normal respiratory effort Cardiovascular: Regular rate and rhythm GI: Tender to palpation right upper quadrant without rebound, guarding, rigidity Extremities: No significant pitting edema Musculoskeletal: Moving all extremities Neuro: No overt focal neurological deficits Skin: No rashes appreciated Psych: Cooperative but is tearful and anxious Results Lab / Micro Data 07/20/25 13:33 07/20/25 13:33 Labs: Laboratory Results - last 24 hr 07/20/25 13:33: WBC 14.7 H, RBC 4.89, Hgb 12.0, Hct 37.3, MCV 76.3 L, MCH 24.5 L, MCHC 32.2, RDW Std Deviation 45.6 H, RDW Coeff of Renetta 16.8 H, Plt Count 445, MPV 9.1, Immature Gran % (Auto) 2.000 H, Neut % (Auto) 67.9, Lymph % (Auto) 22.7, [place] % (Auto) 7.2, Eos % (Auto) 0.0, Baso % (Auto) 0.2, Absolute Neuts (auto) 10.0 H, Absolute Lymphs (auto) 3.34, Nucleated RBC % 0, Sodium 137, Potassium 3.5, Chloride 99, Carbon Dioxide 22.5, Anion Gap 16 H, BUN 8, Creatinine 0.79, Estim Creat Clear Calc 112.03, Est GFR (MDRD) Non-Af 102, BUN/Creatinine Ratio 10.0, Glucose 103 H, Calcium 9.5, Total Bilirubin 0.55, [id number] H, ALT 502 H, Alkaline Phosphatase 177 H, Total Protein 7.4, Albumin 4.1, Globulin 3.3, Albumin/Globulin Ratio 1.2, Serum , Qual NEGATIVE, Cortisol AM Sample 0.12 L 07/20/25 14:45: Urine Color Yellow, Urine Clarity Clear, Urine pH 7.0, Ur Specific [place] 1.010, Urine Protein Negative, Urine Glucose (UA) 1000 H, UrineKetones Negative, Urine Occult Blood 10 H, Urine Nitrite Negative, Urine Bilirubin Negative, Urine Urobilinogen Normal, Ur Leukocyte Esterase Negative Assessment & Plan Assessment/Plan (1) Acute adrenal insufficiency: (2) Elevated liver enzymes: PLAN: Plan # Adrenal insufficiency in the setting of known Slade's disease - Patient has symptoms consistent with all of her previous episodes of acute adrenal insufficiency -Will give hydrocortisone 50 every 6 for stress dose steroids -IV fluids - Seems this may have been precipitated by URI, awaiting COVID/flu/RSV which wasobtained in the ED, will add respiratory panel -Awaiting UA # Elevated liver function tests - AST 288, ALT 502, alk phos 177 -Does report right upper quadrant pain but notes it is the exact same pain she gets with every adrenal crisis with no differences -Reports a CT scan in the [id number] past though she is unsure when that was obtained due to the symptoms and she was told that she has GROSS -Avoid hepatotoxic agents -Repeat CMP in the a.m. -Given symptoms are consistent with all of her previous flares do not certainly think she needs acute reimaging however if pain changes or LFTs worsen will likely need further evaluation - Will hold statin # Nausea and diarrhea -IV fluids, antiemetics, supportive care -Diet as tolerated -Will obtain stool studies, suspect this is due to to #1 however cannot rule outother underlying etiology and feel it is reasonable to obtain the studies #Hypothyroidism -Continue Synthroid #Depression/anxiety -Continue home medications #GERD - Will give PPI IV due to patient's significant nausea and difficulty toleratingp.o. #DVT ppx: SCDs Mary Wang MD Charges/Coding Visit Charges Inpatient E&M: 49146 Init Hosp L2 07/20/25 1522 <Electronically signed by Mary Wang MD> Cosigner Signature (if applicable): CC: Dr. Mary Wang MD; Dr. Isaias Bradley MD~ Signed [facility] Work Phone: Hospital course Narrative No data available for this section [facility] Hospital Discharge instructions Additional Instructions [facility] Additional Instructions Continue the antibiotics and the Peterson will stay in until you see your urologist.[facility] Work Phone: Hospital Discharge instructions Additional Instructions Double your steroid injection dosing until your vomiting and diarrhea are better, then go back to your usual dosing.[facility] Work Phone: Hospital Discharge instructions Additional Instructions Please follow-up your PCP, get plenty of rest, drink plenty of fluids and return for any worsening of symptoms.[facility] Work Phone: Hospital Discharge instructions Additional Instructions Blood work slight elevated liver enzymes 190 ALT, 54 AST. Bilirubin is normal. Lipase is normal. Ultrasound notes fatty liver, common bile duct 7 mm normal. Pancreas with anechoic lesion of 11 mm is largest. Hepatitis panel sent and pending. Follow-up with your GI doctor. Use Levsin as needed Zofran at home as needed.[facility] Work Phone: Hospital Discharge instructions Additional Instructions Today your blood work overall looks unremarkable. Your liver enzymes are normal at 18, 30 (AST, ALT). I prescribed Zofran which is for nausea and vomiting and recommended rest and increase fluids. Follow-up with your primary care doctor.[facility] Work Phone: Patient's home Plan of care note* Visit Details Visit Type -SN SOC Discipline -Custodial Problems Problem Description Start Date Status Goals Interve ntions Medication Education Disciplines: Skilled Services 11/25/2022 Active 1 goal linked to scheduled/documente d intervention 1 goal intervention scheduled/documente d in this visit Mental Health Disciplines: Skilled Services 11/25/2022 Active 1 goal linked to scheduled/documente d intervention 1 goal intervention scheduled/documente d in this visit Sepsis Disciplines: Skilled Services 11/25/2022 Active 1 goal linked to scheduled/documente d intervention 1 goal intervention scheduled/documente d in this visit Physician Specific Parameters Disciplines: Skilled Services 11/25/2022 Active 1 goal linked to scheduled/documente d intervention 1 goal intervention scheduled/documente d in this visit Risk for Falls Disciplines: Skilled Services 11/25/2022 Active 1 goal linked to scheduled/documente d intervention 1 goal intervention scheduled/documente d in this visit Pain Disciplines: Skilled Services 11/25/2022 Active 1 goal linked to scheduled/documente d intervention 1 goal intervention scheduled/documente d in this visit High Risk Medications Disciplines: Skilled Services 11/25/2022 Active 1 goal linked to scheduled/documente d intervention 2 goal interventions scheduled/documente d in this visit Discharge Disciplines: Skilled Services 11/25/2022 Active 1 goal linked to scheduled/documente d intervention 1 goal intervention scheduled/documente d in this visit SN Learning Assessment Disciplines: SN 11/25/2022 Active 1 goal linked to scheduled/documente d intervention 1 goal intervention scheduled/documente d in this visit Goals Goal Associated Problem Outcome Goal Met? Visit Notes Patient/caregiver will demonstrate ability to obtain, store, identify and administer ordered medications, keep accurate medication list in home, and adhere to medication schedule Description: Patient/caregiver will demonstrate ability to obtain, store, identify and administer ordered medications, keep accurate medication list in home, and adhere to medication schedule by 12/07/22. Medication Education No Improved management of mental health condition(s) Description: Patient/caregiver will teach back mental health symptom identification and management techniques by 12/13/22. Mental Health No Patient/caregiver will be able to identify and report symptoms of sepsis Description: Patient/caregiver will be able to identify signs/symptoms of sepsis infection and will verbalize actions to take if suspected by 12/13/22. Sepsis No Patient to maintain parameters within physician-specified ranges throughout certification period Physician Specific Parameters No Manage Risk for falls Description: Patient/caregiver will verbalize knowledge of individualized fall prevention strategies by 12/13/22. Risk for Falls No Manage Pain Description: Patient/caregiver will verbalize knowledge and understanding of appropriate techniques to control pain, including pain medication and non-pharmacological techniques. Patient will verbalize or demonstrate an acceptable level of pain as evidenced by a pain score of 2/10 and improvement in ability to perform activities of daily living to be achieved by 12/13/22. Pain No Patient/caregiver will teach back high risk medication side effect and precaution education High Risk Medications No Manage discharge planning Description: Patient/caregiver will verbalize understanding of ongoing discharge plan provided related to disease management, arrangements for outpatient and/or community services, obtaining medications, supplies, and DME, as needed throughout certification period. Discharge No Demonstrate understanding of education Description: Patient and/or caregiver will verbalize understanding of educational instruction provided throughout certification period. SN Learning Assessment No Interventions Intervention Associated Problem/Goal Status Variance Visit Notes Medication Education Description: Evaluate/instruct patient/caregiver on obtaining, storing, identifying and administering ordered medications as well as keeping accurate medication list in the home and adhereing to medication schedule Problem:Medication Education Goal:Patient/caregive r will demonstrate ability to obtain, store, identify and administer ordered medications, keep accurate medication list in home, and adhere to medication schedule Completed Patient instructed on importance of keeping accurate medication list in home and adhering to medication schedule. Instruct on coping strategies Problem:Mental Health Goal:Improved management of mental health condition(s) Completed Risk of Sepsis Description: Patient is at risk for sepsis. Monitor closely for s/s of sepsis. Problem:Sepsis Goal:Patient/caregive r will be able to identify and report symptoms of sepsis Completed SPO2 Description: Notify Dr. Bradley if pulse ox is <92% at rest. Problem:Physician Specific Parameters Goal:Patient to maintain parameters within physician-specified ranges throughout certification period Completed Instruct on individual fall risk factors and strategies to prevent falls and injuries caused by falls. Problem:Risk for Falls Goal:Manage Risk for falls Completed SN: Patient instructed on Eliminating Environmental Hazards: Keep pathways clear, Keep rooms and walkways well lit and Keep frequently used items within reach Managing Impaired Functional Mobility: Use assistive device(s): rollator walker and Caregiver to provide assist with: Ambulation, Steps, Transfers and ADL/IADLs Managing Pain: Recommended pain medication schedule and management of side effects to minimize fall risk Reducing Medication Risks: Recommended medication schedule and instructed on management of side effects to minimize fall risk and injuries caused by falls Instruct on pain and instruct on strategies to control pain Problem:Pain Goal:Manage Pain Completed patient instructed on techniques to control pain including Pharmacological measures and Non-Pharmacological measures; rest, distraction and breathing/relaxation. Opioids- educated on high risk medication Problem:High Risk Medications Goal:Patient/caregive r will teach back high risk medication side effect and precaution education Completed patient educated on taking medication(s) as prescribed by provider. Do not stop medication or alter doses without speaking with your provider. Discuss medication effectiveness or side effect concerns with your provider and home care team. Only take opioids as prescribed, do not share your medications, and take proper precautions in storing and properly disposing of opioids once no longer needed. Possible side effects of opioid medication including sedation, decreased rate of breathing, and constipation. Report over sedation to prescribing provider and practice deep breathing techniques every hour while awake. Prevent constipation by increasing water and fiber intake, increasing activity as tolerated, and use stool softener(s) as prescribed. Hypoglycemic (including insulin)- educated on high risk medication Problem:High Risk Medications Goal:Patient/caregive r will teach back high risk medication side effect and precaution education Completed patient educated on taking medication(s) as prescribed by provider. Do not stop medication or skip/alter doses without speaking with your provider. Discuss medication effectiveness or side effect concerns with your provider and home care team. Check blood sugars and keep log as ordered by provider. Monitor for side effects of hypoglycemia such as increased weakness or shaking, moist skin, sweating, fast heartbeat, dizziness, sudden hunger, confusion, pale skin, numbness in mouth or tongue, irritability, nervousness, unsteadiness, nightmares, bad dreams, and restless sleep. Checking your blood sugar routinely and eating a consistent diabetic diet can help regulate blood sugars and reduce side effects. Instruct on ongoing discharge plan Problem:Discharge Goal:Manage discharge planning Completed Ongoing Discharge plan: Discharge plan discussed with patient including frequency and duration for home SN and plan for transition to: live independently at home without ongoing services. Instruct and educate on knowledge deficits Problem:SN Learning Assessment Goal:Demonstrate understanding of education Completed patient verbalize and/or demonstrate understanding of nursing education completed today. Education methods include: verbal cues. Further education required to improve knowledge and compliance with depression/anxiety care management, fall prevention/home safety strategies, medication management, nutrition and pain management. documented in this encounter [facility] home Plan of care note* Visit Details Visit Type -SN ROUTINE Discipline -Custodial Problems Problem Description Start Date Status Goals Interve ntions Medication Education Disciplines: Skilled Services 11/25/2022 Active 1 goal linked to scheduled/documen anjelica intervention 1 goal intervention scheduled/document ed in this visit Mental Health Disciplines: Skilled Services 11/25/2022 Active 1 goal linked to scheduled/documen anjelica intervention 1 goal intervention scheduled/document ed in this visit Sepsis Disciplines: Skilled Services 11/25/2022 Active 1 goal linked to scheduled/documen anjelica intervention 1 goal intervention scheduled/document ed in this visit Declined Referral Disciplines: Skilled Services 11/25/2022 Active 1 goal linked to scheduled/documen anjelica intervention OT Referral Disciplines: Skilled Services 11/25/2022 Active 1 goal linked to scheduled/documen anjelica intervention PT Referral Disciplines: Skilled Services 11/25/2022 Active 1 goal linked to scheduled/documen anjelica intervention Physician Specific Parameters Disciplines: Skilled Services 11/25/2022 Active 1 goal linked to scheduled/documen anjelica intervention 1 goal intervention scheduled/document ed in this visit Risk for Falls Disciplines: Skilled Services 11/25/2022 Active 1 goal linked to scheduled/documen anjelica intervention 1 goal intervention scheduled/document ed in this visit Pain Disciplines: Skilled Services 11/25/2022 Active 1 goal linked to scheduled/documen anjelica intervention 1 goal intervention scheduled/document ed in this visit Nutrition/Hydrati on Disciplines: Skilled Services 11/25/2022 Active 1 goal linked to scheduled/documen anjelica intervention 1 goal intervention scheduled/document ed in this visit High Risk Medications Disciplines: Skilled Services 11/25/2022 Active 1 goal linked to scheduled/documen anjelica intervention 2 goal interventions scheduled/document ed in this visit Discharge Disciplines: Skilled Services 11/25/2022 Active 1 goal linked to scheduled/documen anjelica intervention 1 goal intervention scheduled/document ed in this visit SN Other significant comorbidities/dis ease process Disciplines: SN 11/25/2022 Active 1 goal linked to scheduled/documen anjelica intervention 1 goal intervention scheduled/document ed in this visit SN Learning Assessment Disciplines: SN 11/25/2022 Active 1 goal linked to scheduled/documen anjelica intervention 1 goal intervention scheduled/document ed in this visit SN Labwork Disciplines: SN 11/25/2022 Resolved on 11/29/2022 1 goal linked to scheduled/documen anjelica intervention 1 goal intervention scheduled/document ed in this visit Goals Goal Associated Problem Outcome Goal Met? Visit Notes Patient/caregiver will demonstrate ability to obtain, store, identify and administer ordered medications, keep accurate medication list in home, and adhere to medication schedule Description: Patient/caregiver will demonstrate ability to obtain, store, identify and administer ordered medications, keep accurate medication list in home, and adhere to medication schedule by 12/07/22. Medication Education In Progress No Improved management of mental health condition(s) Description: Patient/caregiver will teach back mental health symptom identification and management techniques by 12/13/22. Mental Health In Progress No Patient/caregiver will be able to identify and report symptoms of sepsis Description: Patient/caregiver will be able to identify signs/symptoms of sepsis infection and will verbalize actions to take if suspected by 12/13/22. Sepsis In Progress No Patient has declined referred services Declined Referral Completed Yes Patient will be referred to additional discipline as needed OT Referral In Progress No Patient will be referred to additional discipline as needed PT Referral In Progress No Patient to maintain parameters within physician-specified ranges throughout certification period Physician Specific Parameters In Progress No Manage Risk for falls Description: Patient/caregiver will verbalize knowledge of individualized fall prevention strategies by 12/13/22. Risk for Falls In Progress No Manage Pain Description: Patient/caregiver will verbalize knowledge and understanding of appropriate techniques to control pain, including pain medication and non-pharmacological techniques. Patient will verbalize or demonstrate an acceptable level of pain as evidenced by a pain score of 2/10 and improvement in ability to perform activities of daily living to be achieved by 12/13/22. Pain In Progress No Manage Nutrition/Hydration Description: Patient/caregiver will verbalize/demonstrate knowledge of prescribed diet and/or healthy nutrition to be achieved by 12/07/22. Nutrition/Hydration In Progress No Patient/caregiver will teach back high risk medication side effect and precaution education High Risk Medications In Progress No Manage discharge planning Description: Patient/caregiver will verbalize understanding of ongoing discharge plan provided related to disease management, arrangements for outpatient and/or community services, obtaining medications, supplies, and DME, as needed throughout certification period. Discharge In Progress No Patient/Caregiver will verbalize and/or demonstrate understanding of additional comorbidity(s) or disease process affecting plan of care Description: Patient/Caregiver will verbalize and/or demonstrate understanding of comorbidities effect on health conditions by 12/13/22. SN Other significant comorbidities/disease process In Progress No Demonstrate understanding of education Description: Patient and/or caregiver will verbalize understanding of educational instruction provided throughout certification period. SN Learning Assessment In Progress No SN to obtain lab specimen without difficulty when ordered throughout certification period SN Labwork Completed Yes Interventions Intervention Associated Problem/Goal Status Variance Visit Notes Medication Education Description: Evaluate/instruct patient/caregiver on obtaining, storing, identifying and administering ordered medications as well as keeping accurate medication list in the home and adhereing to medication schedule Problem:Medication Education Goal:Patient/caregiv er will demonstrate ability to obtain, store, identify and administer ordered medications, keep accurate medication list in home, and adhere to medication schedule Completed Patient instructed on adhering to medication schedule. Instruct on coping strategies Problem:Mental Health Goal:Improved management of mental health condition(s) Completed SN instructed pt on family support and this appears to be in place. Risk of Sepsis Description: Patient is at risk for sepsis. Monitor closely for s/s of sepsis. Problem:Sepsis Goal:Patient/caregiv er will be able to identify and report symptoms of sepsis Completed SPO2 Description: Notify Dr. Bradley if pulse ox is <92% at rest. Problem:Physician Specific Parameters Goal:Patient to maintain parameters within physician-specified ranges throughout certification period Completed Instruct on individual fall risk factors and strategies to prevent falls and injuries caused by falls. Problem:Risk for Falls Goal:Manage Risk for falls Completed SN: Patient instructed on Eliminating Environmental Hazards: Keep pathways clear, Keep pets out of pathways, Keep rooms and walkways well lit and Wear supportive shoes or non-skid socks Managing Impaired Functional Mobility: Use assistive device(s): single point cane and Caregiver to provide assist with: Steps and ADL/IADLs Instruct on pain and instruct on strategies to control pain Problem:Pain Goal:Manage Pain Completed patient instructed on techniques to control pain including Non-Pharmacological measures; breathing/relaxation. Define patient s appetite/hydration status and implement strategies to improve compliance with prescribed diet and/or healthy nutrition. Problem:Nutrition/Hy dration Goal:Manage Nutrition/Hydration Completed instructed patient on implementing strategies to comply with prescribed diet, healthy nutrition and adequate hydration Opioids- educated on high risk medication Problem:High Risk Medications Goal:Patient/caregiv er will teach back high risk medication side effect and precaution education Completed patient educated on taking medication(s) as prescribed by provider. Do not stop medication or alter doses without speaking with your provider. Discuss medication effectiveness or side effect concerns with your provider and home care team. Only take opioids as prescribed, do not share your medications, and take proper precautions in storing and properly disposing of opioids once no longer needed. Possible side effects of opioid medication including sedation, decreased rate of breathing, and constipation. Report over sedation to prescribing provider and practice deep breathing techniques every hour while awake. Prevent constipation by increasing water and fiber intake, increasing activity as tolerated, and use stool softener(s) as prescribed. Hypoglycemic (including insulin)- educated on high risk medication Problem:High Risk Medications Goal:Patient/caregiv er will teach back high risk medication side effect and precaution education Completed patient educated on taking medication(s) as prescribed by provider. Do not stop medication or skip/alter doses without speaking with your provider. Discuss medication effectiveness or side effect concerns with your provider and home care team. Check blood sugars and keep log as ordered by provider. Monitor for side effects of hypoglycemia such as increased weakness or shaking, moist skin, sweating, fast heartbeat, dizziness, sudden hunger, confusion, pale skin, numbness in mouth or tongue, irritability, nervousness, unsteadiness, nightmares, bad dreams, and restless sleep. Checking your blood sugar routinely and eating a consistent diabetic diet can help regulate blood sugars and reduce side effects. Instruct on ongoing discharge plan Problem:Discharge Goal:Manage discharge planning Completed Ongoing Discharge plan: Discharge plan discussed with patient including frequency and duration for home SN and plan for transition to: live independently at home without ongoing services. Assess and instruct patient/caregiver on other significant comorbidity(s) or diseae process affecting plan of care Description: Significant comorbidity(s) or diseae process affecting plan of care: Graves disease Problem:SN Other significant comorbidities/diseas e process Goal:Patient/Caregiv er will verbalize and/or demonstrate understanding of additional comorbidity(s) or disease process affecting plan of care Completed patient instructed on s/s to report. Instruct and educate on knowledge deficits Problem:SN Learning Assessment Goal:Demonstrate understanding of education Completed patient verbalize and/or demonstrate understanding of nursing education completed today. Education methods include: verbal cues. Further education required to improve knowledge and compliance with fall prevention/home safety strategies, gastrointestinal care management, medication management, nutrition and pain management. SN to obtain blood specimen (1) Description: Draw blood via venipuncture for HFP with a frequency of once on Date: 11/29/22. Results to Dr. Isaias Bradley. . Dx code(s): R79.89. Problem:SN Labwork Goal:SN to obtain lab specimen without difficulty when ordered throughout certification period Completed documented in this encounter [facility] note Author Mode Christianson [facility] Note Date/Time July 21, 2025 9:10am [facility] Medical Records Department [address] [place] [address] Progress Note - Hospitalist 07/21/25906 MR#: [id number] Acct: [id number] Name: SONIA SZYMANSKI Rep #:[id number] : 1995 30 From: Mode briceño MD PCP: Dr. Isaias Bradley MD Status:ADM I N Location: [place] [address] Subjective Subjective Still does not feel back to her baseline and does not feel much improved from admission Objective Data Objective Data Vital Signs: Vital Signs Temp Pulse Resp BP Pulse Ox O2 Del Method 97.6 F L 68 16 113/66 95 Room Air 07/21/25 03:30 07/21/25 03:30 07/21/25 03:30 07/21/25 03:30 07/21/25 03:30 07/21/25 03:30 Oxygen Delivery Method Room Air Weight: 194 lb 0.108 oz Body Mass Index (BMI) 32.3 Intake & Output: Intake and Output for Last 24 Hours 07/20/25 07/21/25 07/22/25 03:59 03:59 03:59 Intake Total 2656.67 / 2656.67 60 / 60 Balance 2656.67 / 2656.67 60 / 60 Lab / Micro Data 07/21/25 05:10 07/21/25 05:10 Labs: Laboratory Results - last 24 hr 07/20/25 13:33: WBC 14.7 H, RBC 4.89, Hgb 12.0, Hct 37.3, MCV 76.3 L, MCH 24.5 L, MCHC 32.2, RDW Std Deviation 45.6 H, RDW Coeff of Renetta 16.8 H, Plt Count 445, MPV 9.1, Immature Gran % (Auto) 2.000 H, Neut % (Auto) 67.9, Lymph % (Auto) 22.7, Freestone % (Auto) 7.2, Eos % (Auto) 0.0, Baso % (Auto) 0.2, Absolute Neuts (auto) 10.0 H, Absolute Lymphs (auto) 3.34, Nucleated RBC % 0, Sodium 137, Potassium 3.5, Chloride 99, Carbon Dioxide 22.5, Anion Gap 16 H, BUN 8, Creatinine 0.79, Estim Creat Clear Calc 112.03, Est GFR (MDRD) Non-Af 102, BUN/Creatinine Ratio 10.0, Glucose 103 H, Calcium 9.5, Total Bilirubin 0.55, [id number] H, ALT 502 H, Alkaline Phosphatase 177 H, Total Protein 7.4, Albumin 4.1, Globulin 3.3, Albumin/Globulin Ratio 1.2, Serum , Qual NEGATIVE, Cortisol AM Sample 0.12 L 07/20/25 14:45: Urine Color Yellow, Urine Clarity Clear, Urine pH 7.0, Ur Specific [place] 1.010, Urine Protein Negative, Urine Glucose (UA) 1000 H, UrineKetones Negative, Urine Occult Blood 10 H, Urine Nitrite Negative, Urine Bilirubin Negative, Urine Urobilinogen Normal, Ur Leukocyte Esterase Negative, Urine RBC 0-5 SEEN, Urine WBC 0-5 SEEN, Ur Squamous Epith Cells 0-5 SEEN, Urine Bacteria 1+, Urine Mucus 0 SEEN 07/20/25 21:42: POC Glucose 147 H 07/21/25 05:10: WBC 12.9 H, RBC 4.48, Hgb 10.8 L, Hct 35.5 L, MCV 79.2 L, MCH 24.1 L, MCHC 30.4 L D, RDW Std Deviation 48.5 H, RDW Coeff of Renetta 17.0 H, Plt Count 465 H, MPV 9.3, Immature Gran % (Auto) 0.700, Neut % (Auto) 77.0 H, Lymph % (Auto) 15.5 L, Freestone % (Auto) 6.7, Eos % (Auto) 0.0, Baso % (Auto) 0.1, Absolute Neuts (auto) 9.9 H, Absolute Lymphs (auto) 1.99, Nucleated RBC % 0, Sodium 141, Potassium 3.9, Chloride 105, Carbon Dioxide 23.5, Anion Gap 12, BUN 7, Creatinine 0.59 L, Estim Creat Clear Calc 149.97, Est GFR (MDRD) Non-Af 123, BUN/Creatinine Ratio 11.4, Glucose 113 H, Calcium 8.6, Total Bilirubin 0.49, [id number] H, ALT 550 H, Alkaline Phosphatase 180 H, Total Protein 6.7, Albumin 3.7, Globulin 3.0, Albumin/Globulin Ratio 1.3 Micro: Microbiology 07/20/25 16:31 Mucosa - Nasopharyngeal Respiratory Panel (PCR) - Final 07/20/25 14:30 Mucosa - Nose SARS-CoV-2, Influenza & RSV (PCR) - Final Physical Exam Narrative General: Alert, Oriented x3, Cooperative, No apparent distress HEENT: Atraumatic, PERRLA, EOMI, Normocephalic Oral: Moist Mucosa Neck: Supple, No JVD Lungs: Diminished, Normal air movement, No rhonchi, No wheeze, No rales Cardiovascular: Regular rate, Regular Rhythm, Normal S1, Normal S2, No murmurs Abdomen: Soft, TTP RUQ, Non-Distended, No Hepato-splenomegaly Extremities: No edema, Capillary Refill Less than 3 Seconds Skin: No rashes, No breakdown Musculoskeletal: No Tenderness to Palpation of Joints or Extremities Neurological: No focal neurological deficits, Motor Exam 5/5 strength throughout, Sensory exam intact to light touch and pain Psych/Mental Status: Normal Affect, Appropriate Assessment & Plan Assessment/Plan (1) Acute adrenal insufficiency: (2) Elevated liver enzymes: PLAN: Plan 1. 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 Elevated LFTs higher than her normal to be expected in the setting of her Slade's and MASH ? Continue with stress dose steroids, if she does start to feel better can plan for discharge on her previous taper ? Continue with IV fluids ? I do recommend outpatient follow-up with gastroenterology for her elevated LFTs ? Respiratory panels are negative will continue supportive care for her nausea and diarrhea 2. Hypothyroidism ? Stable ? Continue with Synthroid 3. Anxiety/depression ? Stable ? Continue with her home medications 4. GERD ? Stable ? Continue with her home medications DVT: SCDs Charges/Coding Visit Charges Inpatient E&M: 70726 Subs Hosp L2 07/21/25 0910 <Electronically signed by Mode Christianson MD> Cosigner Signature (if applicable): CC: ~ Signed [facility] Work Phone: Reason for referral (narrative)* Diagnostic Procedure Only (Routine) - Pending Review Specialty Diagnoses / Procedures Referred By Kathryn damico Referred To Contact XR IMAGING Diagnoses Elevated antinuclear antibody (BOBBY) level Dysphagia, unspecified type Malar rash Polyarthralgia 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 Procedures XR ANKLE GENERAL 3V AP/LAT/OBL BILATERAL RADEX ANKLE COMPLETE MINIMUM 3 VIEWS Sangita Fragoso DO [address] [place] [address] Xr Imaging Referral ID Status Reason Start Date Expiration Date Visits Requested Visits Authorized [id number] Pending Review Auto-Generat ed Referral 02/04/2022 2023 1 1 * Diagnostic Procedure Only (Routine) - Pending Review Specialty Diagnoses / Procedures Referred By Kathryn damico Referred To Contact XR IMAGING Diagnoses Elevated antinuclear antibody (BOBBY) level Dysphagia, unspecified type Malar rash Polyarthralgia 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 Procedures XR FOOT GENERAL 3V AP/LAT/OBL BILATERAL RADEX FOOT COMPLETE MINIMUM 3 VIEWS Sangita Fragoso DO [address] [place], [place] [id number] Xr Imaging Referral ID Status Reason Start Date Expiration Date Visits Requested Visits Authorized [id number] Pending Review Auto-Generat ed Referral 02/04/2022 2023 1 1 * Diagnostic Procedure Only (Routine) - Pending Review Specialty Diagnoses / Procedures Referred By Contac t Referred To Contact XR IMAGING Diagnoses Elevated antinuclear antibody (BOBBY) level Dysphagia, unspecified type Malar rash Polyarthralgia 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 Procedures XR WRIST GENERAL 3V PA/LAT/OBL BILATERAL RADEX WRIST COMPLETE MINIMUM 3 VIEWS Sangita Fragoso DO [address] [place] [address] Xr Imaging Referral ID Status Reason Start Date Expiration Date Visits Requested Visits Authorized [id number] Pending Review Auto-Generat ed Referral 02/04/2022 2023 1 1 * Diagnostic Procedure Only (Routine) - Pending Review Specialty Diagnoses / Procedures Referred By Kathryn t Referred To Contact XR IMAGING Diagnoses Elevated antinuclear antibody (BOBBY) level Dysphagia, unspecified type Malar rash Polyarthralgia 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 Procedures XR HAND GENERAL 3V PA/LAT/OBL BILATERAL RADEX HAND MINIMUM 3 VIEWS Sangita Fragoso DO [address] [place] [address] Xr Imaging Referral ID Status Reason Start Date Expiration Date Visits Requested Visits Authorized [id number] Pending Review Auto-Generat ed Referral 02/04/2022 2023 1 1 [facility] for referral (narrative)* (Routine) Specialty Diagnoses / Procedures Referred By Lauryac t Referred To Contact [facility] [address] [address] Referral ID Status Reason Start Date Expiration Date Visits Re quested Visits Authorized * Adjunctive Therapy (Routine) - New Request Specialty Diagnoses / Procedures Referred By Kathryn t Referred To Contact Diagnoses Nausea and vomiting, unspecified vomiting type Physical deconditioning Patsy Lua MD [address] [place] [address] Referral ID Status Reason Start Date Expiration Date V isits Requested Visits Authorized [id number] New Request 06/29/2022 07/24/2023 1 1 * Adjunctive Therapy (Routine) - New Request Specialty Diagnoses / Procedures Referred By Contac t Referred To Contact Diagnoses Nausea and vomiting, unspecified vomiting type Physical deconditioning Patsy Lua MD [address] [place] [address] Referral ID Status Reason Start Date Expiration Date V isits Requested Visits Authorized [id number] New Request 06/29/2022 07/24/2023 1 1 * (Routine) Specialty Diagnoses / Procedures Referred By Contac t Referred To Contact Sai Joyce MD [address] [place] [address] Referral ID Status Reason Start Date Expiration Date Visits Re quested Visits Authorized * Radiology (Routine) - Pending Review Specialty Diagnoses / Procedures Referred By Contac t Referred To Contact Procedures ECG Sai Jyoce MD [address] [place] [address] Referral ID Status Reason Start Date Expiration Date V isits Requested Visits Authorized [id number] Pending Review 06/25/2022 07/20/2023 1 1 * (Routine) Specialty Diagnoses / Procedures Referred By Contac t Referred To Contact Sai Joyce MD [address] [place] [address] Referral ID Status Reason Start Date Expiration Date Visits Re quested Visits Authorized * (Routine) Specialty Diagnoses / Procedures Referred By Contac t Referred To Contact [facility] [address] [address] Referral ID Status Reason Start Date Expiration Date Visits Re quested Visits Authorized * Radiology (Routine) - Pending Review Specialty Diagnoses / Procedures Referred By Contac t Referred To Contact Procedures US ABDOMEN RUQ/LIVER/GB Ursula Dominguez MD, MPH [address] [place], [place] [id number] Referral ID Status Reason Start Date Expiration Date V isits Requested Visits Authorized [id number] Pending Review 06/25/2022 07/20/2023 1 1 * (Routine) - Pending Review Specialty Diagnoses / Procedures Referred By Contac t Referred To Contact Procedures NO MECHANICAL DVT PROPHYLAXIS Ursula Dominguez MD, MPH [address] [place] [address] Referral ID Status Reason Start Date Expiration Date V isits Requested Visits Authorized [id number] Pending Review 06/25/2022 07/20/2023 1 1 * (Routine) - Pending Review Specialty Diagnoses / Procedures Referred By Contac t Referred To Contact Procedures LOW RISK - NO PHARMACOLOGICAL DVT PROPHYLAXIS Ursula Dominguez MD, MPH [address] [place] [address] Referral ID Status Reason Start Date Expiration Date V isits Requested Visits Authorized [id number] Pending Review 06/25/2022 07/20/2023 1 1 * (Routine) - Pending Review Specialty Diagnoses / Procedures Referred By Contac t Referred To Contact Procedures DVT/VTE RISK ASSESSMENT Ursula Dominguez MD, MPH [facility] [place] [facility] [address] [place] [address] Referral ID Status Reason Start Date Expiration Date V isits Requested Visits Authorized [id number] Pending Review 06/25/2022 07/20/2023 1 1 [facility] for referral (narrative)* Outpatient Procedure (Routine) - Authorized Specialty Diagnoses / Procedures Referred By Contac t Referred To Contact [facility] Diagnoses Diarrhea, unspecified type Procedures COLONOSCOPY DIAGNOSTIC COLONOSCOPY FLX DX W/COLLJ SPEC WHEN Jigna Canada MD [address] [place] [address] [facility] [address] [place] [address] Referral ID Status Reason Start Date Expiration Date Visits Requested Visits Authorized [id number] Authorized Auto-Generat ed Referral 2 08/01/2023 1 1 [facility] for referral (narrative)* Outpatient Procedure (Routine) - Pending Review Specialty Diagnoses / Procedures Referred By Contac t Referred To Contact [facility] Diagnoses Diarrhea, unspecified type Procedures COLONOSCOPY DIAGNOSTIC COLONOSCOPY FLX DX W/COLLJ SPEC WHEN Jigna Canada MD [address] [place] [address] [facility] [address] [address] Referral ID Status Reason Start Date Expiration Date Visits Requested Visits Authorized [id number] Pending Review Auto-Generat ed Referral 2 09/14/2023 1 1 [facility] for referral (narrative)* Outpatient Procedure (Routine) - Closed Specialty Diagnoses / Procedures Referred By Contac t Referred To Contact [facility] [place] Diagnoses Diarrhea, unspecified type Procedures COLONOSCOPY DIAGNOSTIC COLONOSCOPY FLX DX W/COLLJ SPEC WHEN Jigna Canada MD [address] [place] [address] [facility] [address] [address] Referral ID Status Reason Start Date Expiration Date V isits Requested Visits Authorized [id number] Closed Auto-Generate d Referral 09/14/2022 09/14/2023 1 1 [facility] for referral (narrative)* Outpatient Procedure (Routine) - Closed Specialty Diagnoses / Procedures Referred By Contac t Referred To Contact [facility] Diagnoses Diarrhea, unspecified type Procedures COLONOSCOPY DIAGNOSTIC COLONOSCOPY FLX DX W/COLLJ SPEC WHEN Jigna Canada MD [address] [place] [address] [address] Referral ID Status Reason Start Date Expiration Date V isits Requested Visits Authorized [id number] Closed Auto-Generate d Referral 08/01/2022 08/01/2023 1 1 [facility] for referral (narrative)* Diagnostic Procedure Only (Routine) - Closed Specialty Diagnoses / Procedures Referred By Contac t Referred To Contact XR IMAGING Diagnoses Elevated antinuclear antibody (BOBBY) level Dysphagia, unspecified type Malar rash Polyarthralgia 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 Procedures XR ANKLE GENERAL 3V AP/LAT/OBL BILATERAL RADEX ANKLE COMPLETE MINIMUM 3 VIEWS Sangita Fragoso, DO [address] [place] [id number] Xr Imaging [place] [address] Referral ID Status Reason Start Date Expiration Date V isits Requested Visits Authorized [id number] Closed Auto-Generate d Referral 02/04/2022 2023 1 1 * Diagnostic Procedure Only (Routine) - Closed Specialty Diagnoses / Procedures Referred By Contac t Referred To Contact XR IMAGING Diagnoses Elevated antinuclear antibody (BOBBY) level Dysphagia, unspecified type Malar rash Polyarthralgia 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 Procedures XR FOOT GENERAL 3V AP/LAT/OBL BILATERAL RADEX FOOT COMPLETE MINIMUM 3 VIEWS SunilrosalioSangita lopez DO [address] [place] [address] [place] [address] Referral ID Status Reason Start Date Expiration Date V isits Requested Visits Authorized [id number] Closed Auto-Generate d Referral 02/04/2022 2023 1 1 * Diagnostic Procedure Only (Routine) - Closed Specialty Diagnoses / Procedures Referred By Contac t Referred To Contact XR IMAGING Diagnoses Elevated antinuclear antibody (BOBBY) level Dysphagia, unspecified type Malar rash Polyarthralgia 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 Procedures XR WRIST GENERAL 3V PA/LAT/OBL BILATERAL RADEX WRIST COMPLETE MINIMUM 3 VIEWS Sangita Fragoso DO [address] [place] [address] [place] [address] Referral ID Status Reason Start Date Expiration Date V isits Requested Visits Authorized [id number] Closed Auto-Generate d Referral 02/04/2022 2023 1 1 * Diagnostic Procedure Only (Routine) - Closed Specialty Diagnoses / Procedures Referred By Contac t Referred To Contact XR IMAGING Diagnoses Elevated antinuclear antibody (BOBBY) level Dysphagia, unspecified type Malar rash Polyarthralgia 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 Procedures XR HAND GENERAL 3V PA/LAT/OBL BILATERAL RADEX HAND MINIMUM 3 VIEWS Sangita Fragoso DO [address] [place] [address] [place] [id number] Referral ID Status Reason Start Date Expiration Date V isits Requested Visits Authorized [id number] Closed Auto-Generate d Referral 02/04/2022 2023 1 1 [facility] for referral (narrative)No reason for referral information availableWKettering Health [facility] Work Phone: [facility] Narrative* Auth/Cert Specialty Diagnoses / Procedures Referred By Kathryn damico Referred To Contact Diagnoses SLADE'S CRISIS Alayna Rasmussen MD [address] [place] [phone] [facility] [address] [place] [address] Referral ID Status Reason Start Date Expiration Date Visits Re quested Visits Authorized [id number] [facility] Outpatient Procedure (Routine) - Closed Specialty Diagnoses / Procedures Referred By Kathryn t Referred To Contact [facility] Diagnoses Diarrhea, unspecified type Procedures COLONOSCOPY DIAGNOSTIC COLONOSCOPY FLX DX W/COLLJ SPEC WHEN Jigna Canada MD [address] [place] [address] [facility] [address] [place] [address] Referral ID Status Reason Start Date Expiration Date V isits Requested Visits Authorized [id number] Closed Auto-Generate d Referral 09/14/2022 09/14/2023 1 1 [facility] for visit Narrative* Outpatient Procedure (Routine) - Closed Specialty Diagnoses / Procedures Referred By Kathryn damico Referred To Contact [facility] Diagnoses Diarrhea, unspecified type Procedures COLONOSCOPY DIAGNOSTIC COLONOSCOPY FLX DX W/COLLJ SPEC WHEN Jigna Canada MD [address] [place] [id number] [facility] [address] [place] [address] Referral ID Status Reason Start Date Expiration Date V isits Requested Visits Authorized [id number] Closed Auto-Generate d Referral 08/01/2022 08/01/2023 1 1 [facility] for visit Narrative* Diagnostic Procedure Only (Routine) - Closed Specialty Diagnoses / Procedures Referred By Contac t Referred To Contact XR IMAGING Diagnoses Elevated antinuclear antibody (BOBBY) level Dysphagia, unspecified type Malar rash Polyarthralgia 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 Procedures XR ANKLE GENERAL 3V AP/LAT/OBL BILATERAL RADEX ANKLE COMPLETE MINIMUM 3 VIEWS Sangita Fragoso DO [address] [place] [address] Xr Imaging [facility] Referral ID Status Reason Start Date Expiration Date V isits Requested Visits Authorized [id number] Closed Auto-Generate d Referral 02/04/2022 2023 1 1 [facility] for visit Narrative* Diagnostic Procedure Only (Routine) - Closed Specialty Diagnoses / Procedures Referred By Contac t Referred To Contact XR IMAGING Diagnoses Contusion of multiple sites of left shoulder and upper arm, subsequent encounter Contusion of left hip, subsequent encounter Procedures XR SHOULDER GENERAL 3V OR MORE AP/TRUE AP/OTHER LEFT RADEX SHOULDER COMPLETE MINIMUM 2 VIEWS Isaias Bradley MD [address] [place] [address] Phone: tel: fax: XR IMAGING [facility] Referral ID Status Reason Start Date Expiration Date V isits Requested Visits Authorized [id number] Closed Auto-Generate d Referral 06/09/2025 07/09/2026 1 1 [facility] Summary Purpose Family History No Family History Records Found Relationship Condition Age at Onset Recorded Date/T nayely uncle Diabetes mellitus Unknown Malignant neoplasm Unknown father Diabetes mellitus Unknown grandfather Cerebrovascular accident (CVA) Unknown uncle Malignant neoplasm Unknown grandmother Malignant neoplasm Unknown Advance Directives No Advanced Directives Records FoundDocuments on File Type Date Recorded Patient Bunghole Borer Expl anation Advance Directive(s) 08/31/2022 11:37 AM Date Activated Date Inactivated Comments 05/03/2023 6:48 AM 05/12/2023 4:59 PM Question Answer Comments Full Code Order Discussed With: Patient Date Activated Date Inactivated Comments 11/25/2022 2:50 PM 02/05/2023 8:18 AM Date Activated Date Inactivated Comments 11/18/2022 11:26 PM 11/22/2022 6:43 PM Question Answer Comments Full Code Order Discussed With: Patient Date Activated Date Inactivated Comments 08/14/2022 9:40 PM 08/19/2022 10:06 PM Question Answer Comments Full Code Order Discussed With: Patient Date Activated Date Inactivated Comments 01/14/2022 7:52 PM 01/18/2022 5:18 PM Question Answer Comments Full Code Order Discussed With: Patient Latest Code Status on File Code Status Date Activated Date Inactivated Comments Full Code 08/14/2022 9:40 PM 08/19/2022 10:06 PM Full Code Order Discussed With: Patient Full Code 01/14/2022 7:52 PM 01/18/2022 5:18 PM Documents on File Type Date Recorded Patient Bunghole Borer Expl anation Advance Directives and Livin g Will 09/14/2020 7:32 PM Latest Code Status on File Code Status Date Activated Date Inactivated Comments Full Code 09/14/2020 8:10 PM 09/15/2020 6:22 PM Documents on File Type Date Recorded Patient Bunghole Borer Expl anation Advance Directives and Living Will Power of Machine Rebuilder Documents on File Type Date Recorded Patient Bunghole Borer Expl anation Advance Directive(s) 01/16/2022 4:55 PM Advance Directive(s) 03/15/2019 10:21 AM Advance Directive(s) 03/11/2019 3:54 PM Advance Directive(s) 06/27/2017 2:37 PM Latest Code Status on File Code Status Date Activated Date Inactivated Comments Full Code 01/14/2022 7:52 PM 01/18/2022 5:18 PM Documents on File Type Date Recorded Patient Bunghole Borer Expl anation Advance Directive(s) 01/16/2022 4:55 PM Advance Directive(s) 03/15/2019 10:21 AM Advance Directive(s) 03/11/2019 3:54 PM Advance Directive(s) 06/27/2017 2:37 PM Latest Code Status on File Code Status Date Activated Date Inactivated Comments Full Code 01/14/2022 7:52 PM 01/18/2022 5:18 PM Latest Code Status on File Code Status Date Activated Date Inactivated Comments Full Code 06/25/2022 5:18 AM Advance Directive Response Recorded Date/ Time Advance Directives No March 02 0 2:50pm Living Will No July 11, 2022 12:48pm Power of Machine Rebuilder No June 12:48pm Advance Directive Response Recorded Date/ Time Advance Directives No March 02 0 2:50pm Living Will No August 09 9:28am Power of Machine Rebuilder No August 09, 2022 9:28am Advance Directive Response Recorded Date/ Time Advance Directives No March 02 0 2:50pm Living Will No August 09 6:57pm Power of Machine Rebuilder No August 09, 2022 6:57pm Latest Code Status on File Code Status Date Activated Date Inactivated Comments Full Code 08/14/2022 9:40 PM Advance Directive Response Recorded Date/ Time Advance Directives No March 02 0 1:50pm Living Will No September 05 022 2:43pm Power of Machine Rebuilder No September 05, 2022 2:43pm Advance Directive Response Recorded Date/ Time Advance Directives No March 02 0 1:50pm Living Will No September 06 022 9:53pm Power of Machine Rebuilder No September 06, 2022 9:53pm Advance Directive Response Recorded Date/ Time Advance Directives No March 02 0 1:50pm Living Will No September 08, 022 6:46pm Power of Machine Rebuilder No September 08, 2022 6:46pm Advance Directive Response Recorded Date/ Time Name of Medical Power of Machine Rebuilder September 10, 2022 8:43pm Advance Directives No March 02 0 1:50pm Living Will No September 10 022 8:43pm Power of Machine Rebuilder Yes September 10, 2022 8:43pm Advance Directive Response Recorded Date/ Time Name of Medical Power of Machine Rebuilder September 10, 2022 8:43pm Name of Medical Power of Machine Rebuilder REX SZYMANSKI- September 11, 2022 6:42pm Advance Directives No March 02 0 1:50pm Living Will No September 11 022 6:42pm Power of Machine Rebuilder Yes September 11, 2022 6:42pm Documents on File Type Date Recorded Patient Bunghole Borer Expl anation Advance Directive(s) 08/31/2022 11:37 AM Latest Code Status on File Code Status Date Activated Date Inactivated Comments Full Code 08/14/2022 9:40 PM 08/19/2022 10:06 PM Full Code 01/14/2022 7:52 PM 01/18/2022 5:18 PM Advance Directive Response Recorded Date/ Time Name of Medical Power of Machine Rebuilder September 10, 2022 8:43pm Name of Medical Power of Machine Rebuilder REX NESSA- September 11, 2022 6:42pm Name of Medical Power of Machine Rebuilder October 29, 2022 10:53am Advance Directives No March 02 1:50pm Living Will No October 31 7:32pm Power of Machine Rebuilder No October 31 023 7:32pm Advance Directive Response Recorded Date/ Time Name of Medical Power of Machine Rebuilder September 10, 2022 8:43pm Name of Medical Power of Machine Rebuilder REX NESSA- September 11, 2022 6:42pm Name of Medical Power of Machine Rebuilder October 29, 2022 10:53am Name of Medical Power of Machine Rebuilder Triston Galarzato November 03, 2022 7:27pm Advance Directives No March 02 1:50pm Living Will Yes November 03 7:27pm Power of Machine Rebuilder Yes November 03, 2022 7:27pm Latest Code Status on File Code Status Date Activated Date Inactivated Comments Full Code 11/18/2022 11:26 PM 11/22/2022 6:43 PM Full Code 08/14/2022 9:40 PM 08/19/2022 10:06 PM Latest Code Status on File Code Status Date Activated Date Inactivated Comments Full Code 11/18/2022 11:26 PM 11/22/2022 6:43 PM Full Code 08/14/2022 9:40 PM 08/19/2022 10:06 PM Latest Code Status on File Code Status Date Activated Date Inactivated Comments Full Code 11/25/2022 2:50 PM Full Code 11/18/2022 11:26 PM 11/22/2022 6:43 PM Latest Code Status on File Code Status Date Activated Date Inactivated Comments Full Code 11/25/2022 2:50 PM Full Code 11/18/2022 11:26 PM 11/22/2022 6:43 PM Advance Directive Response Recorded Date/ Time Name of Medical Power of Machine Rebuilder October 29, 2022 11:53am Name of Medical Power of Machine Rebuilder Triston Galarzato November 03, 2022 8:27pm Advance Directives No March 02 0 2:50pm Living Will No February 04, 2023 5:03pm Power of Machine Rebuilder No February 04 5:03pm Latest Code Status on File Code Status Date Activated Date Inactivated Comments Full Code 11/25/2022 2:50 PM 02/05/2023 8:18 AM Advance Directive Response Recorded Date/ Time Name of Medical Power of Machine Rebuilder October 29, 2022 11:53am Name of Medical Power of Machine Rebuilder Triston Galarzato November 03, 2022 8:27pm Advance Directives No March 02 2:50pm Living Will No February 12, 2023 10:32am Power of Machine Rebuilder No February 12 10:32am Advance Directive Response Recorded Date/ Time Name of Medical Power of Machine Rebuilder October 29, 2022 11:53am Name of Medical Power of Machine Rebuilder Triston Galarzato November 03, 2022 8:27pm Advance Directives No March 02 0 2:50pm Living Will No February 14, 2023 8:24pm Power of Machine Rebuilder No February 14 8:24pm Advance Directive Response Recorded Date/ Time Name of Medical Power of Machine Rebuilder October 29, 2022 11:53am Name of Medical Power of Machine Rebuilder Triston Galarzato November 03, 2022 8:27pm Advance Directives No March 02 0 2:50pm Living Will No February 23, 2023 3: 32pm Power of Machine Rebuilder No February 23, 2023 3:32pm Latest Code Status on File Code Status Date Activated Date Inactivated Comments Full Code 11/25/2022 2:50 PM 02/05/2023 8:18 AM Latest Code Status on File Code Status Date Activated Date Inactivated Comments Full Code 11/25/2022 2:50 PM 02/05/2023 8:18 AM Code Status History Code Status Date Activated Date Inactivated Comments Full Code 11/18/2022 11:26 PM 11/22/2022 6:43 PM Question Answer Comments Full Code Order Discussed With: Patient Full Code 08/14/2022 9:40 PM 08/19/2022 10:06 PM Question Answer Comments Full Code Order Discussed With: Patient Full Code 01/14/2022 7:52 PM 01/18/2022 5:18 PM Question Answer Comments Full Code Order Discussed With: Patient Latest Code Status on File Code Status Date Activated Date Inactivated Comments Full Code 05/03/2023 6:48 AM 05/12/2023 4:59 PM Question Answer Comments Full Code Order Discussed With: Patient Code Status History Code Status Date Activated Date Inactivated Comments Full Code 11/25/2022 2:50 PM 02/05/2023 8:18 AM Full Code 11/18/2022 11:26 PM 11/22/2022 6:43 PM Question Answer Comments Full Code Order Discussed With: Patient Full Code 08/14/2022 9:40 PM 08/19/2022 10:06 PM Question Answer Comments Full Code Order Discussed With: Patient Full Code 01/14/2022 7:52 PM 01/18/2022 5:18 PM Question Answer Comments Full Code Order Discussed With: Patient Latest Code Status on File Code Status Date Activated Date Inactivated Comments Full Code 05/03/2023 6:48 AM 05/12/2023 4:59 PM Question Answer Comments Full Code Order Discussed With: Patient Code Status History Code Status Date Activated Date Inactivated Comments Full Code 11/25/2022 2:50 PM 02/05/2023 8:18 AM Full Code 11/18/2022 11:26 PM 11/22/2022 6:43 PM Question Answer Comments Full Code Order Discussed With: Patient Full Code 08/14/2022 9:40 PM 08/19/2022 10:06 PM Question Answer Comments Full Code Order Discussed With: Patient Full Code 01/14/2022 7:52 PM 01/18/2022 5:18 PM Question Answer Comments Full Code Order Discussed With: Patient Latest Code Status on File Code Status Date Activated Date Inactivated Comments Full Code 05/03/2023 6:48 AM 05/12/2023 4:59 PM Question Answer Comments Full Code Order Discussed With: Patient Code Status History Code Status Date Activated Date Inactivated Comments Full Code 11/25/2022 2:50 PM 02/05/2023 8:18 AM Full Code 11/18/2022 11:26 PM 11/22/2022 6:43 PM Question Answer Comments Full Code Order Discussed With: Patient Full Code 08/14/2022 9:40 PM 08/19/2022 10:06 PM Question Answer Comments Full Code Order Discussed With: Patient Full Code 01/14/2022 7:52 PM 01/18/2022 5:18 PM Question Answer Comments Full Code Order Discussed With: Patient Advance Directive Response Recorded Date/ Time Advance Directives No March 02 0 2:50pm Living Will No June 09 3 1:45pm Power of Machine Rebuilder No June 09, 2 023 1:45pm Advance Directive Response Recorded Date/ Time Advance Directives No March 02 0 2:50pm Living Will No July 24 3 12:07pm Power of Machine Rebuilder No July 24, 2 023 12:07pm Latest Code Status on File Code Status Date Activated Date Inactivated Comments Full Code 05/03/2023 6:48 AM 05/12/2023 4:59 PM Question Answer Comments Full Code Order Discussed With: Patient Code Status History Code Status Date Activated Date Inactivated Comments Full Code 11/25/2022 2:50 PM 02/05/2023 8:18 AM Full Code 11/18/2022 11:26 PM 11/22/2022 6:43 PM Question Answer Comments Full Code Order Discussed With: Patient Full Code 08/14/2022 9:40 PM 08/19/2022 10:06 PM Question Answer Comments Full Code Order Discussed With: Patient Full Code 01/14/2022 7:52 PM 01/18/2022 5:18 PM Question Answer Comments Full Code Order Discussed With: Patient Date Activated Date Inactivated Comments 05/03/2023 6:48 AM 05/12/2023 4:59 PM Question Answer Comments Full Code Order Discussed With: Patient Date Activated Date Inactivated Comments 11/25/2022 2:50 PM 02/05/2023 8:18 AM Date Activated Date Inactivated Comments 11/18/2022 11:26 PM 11/22/2022 6:43 PM Question Answer Comments Full Code Order Discussed With: Patient Date Activated Date Inactivated Comments 08/14/2022 9:40 PM 08/19/2022 10:06 PM Question Answer Comments Full Code Order Discussed With: Patient Date Activated Date Inactivated Comments 01/14/2022 7:52 PM 01/18/2022 5:18 PM Question Answer Comments Full Code Order Discussed With: Patient Advance Directive Response Recorded Date/ Time Do you have a Healthcare Power of Machine Rebuilder? No February 16, 2025 4:53pm Living Will No December 10 025 3:20pm Do you have a Healthcare Power of Machine Rebuilder? No December 10, 2024 3:20pm Advance Directives No March 02 0 2:50pm Advance Directive Response Recorded Date/ Time Do you have a Healthcare Power of Machine Rebuilder? Yes February 16, 2025 7:45pm Do you have a Healthcare Power of Machine Rebuilder? No June 16, 2025 11:15am Advance Directives No March 02 0 2:50pm Advance Directive Response Recorded Date/ Time Do you have a Healthcare Power of Machine Rebuilder? Yes February 16, 2025 7:45pm Do you have a Healthcare Power of Machine Rebuilder? No June 16, 2025 5:56pm Advance Directives No March 02 0 2:50pm Advance Directive Response Recorded Date/ Time Do you have a Healthcare Power of Machine Rebuilder? No July 20, 2025 3:41pm Name of Medical Power of Machine Rebuilder rex szymanski July 20, 2025 1:25pm Do you have a Healthcare Power of Machine Rebuilder? No June 16, 2025 5:56pm Advance Directives No March 02 0 2:50pm Hospital Course * Lonny Valdes MD - 09/15/2020 2:23 PM EST DISCHARGE SUMMARY Patient: Sonia Szymanski Date of : 1995 Site: [facility] Family Provider: Isaias Bradley MD Admit Date: 09/14/2020 Discharge Date/Time: 09/15/20 Disposition: Home Clinical Summary Hospital Course: Sonia Szymanski is a 25 y.o. female patient of Isaias Bradley MD with a history of migraine and hypothyroidism who was admitted for stroke like symptoms and headache. [facility]. Her symptoms improved with improvement of her headache. Patient also complained of having intermittent tachycardia, her TSH was checked which was low. She is advised to decrease dose of her levothyroxine to 75 mg and follow up with her PCP. Patient was seen by Neurology while in hospital and is prescribed Topamax for her migraine prevention. She is stable and is being discharged home. Discharge Diagnoses: Hemiplegic Migraine Surgeries: None Consults: Procedures Inpatient consult to Neurology Allergies: Azithromycin; Prednisone; Excedrin extra strength [sdxuvsc-[id number]-[id number]]; Latex, natural rubber; and Neosporin (jgj-ywh-yrolk) [velqvaxz-jdqmuhblssd-jhbguzvao] Discharge Diet: Resume home diet Condition: Good Discharge Medications: Current Discharge Medication List START taking these medications Details !! topiramate (TOPAMAX) 25 MG tablet Take 1 (one) tablet (25 mg total) by mouth nightly . Qty: 30 tablet, Refills: 0 !! topiramate (TOPAMAX) 25 MG tablet Take 1 (one) tablet (25 mg total) by mouth 2 (two) times a dayStart: 09/22/20. Qty: 60 tablet, Refills: 0 !! - Potential duplicate medications found. Please discuss with provider. CONTINUE these medications which have CHANGED Details levothyroxine (SYNTHROID, LEVOTHROID) 75 MCG tablet Take 1 (one) tablet (75 mcg total) by mouth once daily . Qty: 30 tablet, Refills: 0 CONTINUE these medications which have NOT CHANGED Details gabapentin (NEURONTIN) 300 MG capsule Take 300 mg by mouth every night at bedtime . hydrOXYzine (ATARAX) 25 MG tablet Take 25 mg by mouth 3 (three) times a day as needed for anxiety . iron 18 mg Tab Take by mouth . rizatriptan (MAXALT) 10 MG tablet daily USE ONCE A DAY DIRECTED . sertraline (ZOLOFT) 25 MG tablet Take 25 mg by mouth daily . calcium carbonate-vitamin D2 500 mg(1,250mg) -200 unit tablet Take 1 tablet by mouth 2 (two) times a day. HYDROcodone-acetaminophen (NORCO) 5-325 mg per tablet Take 1 tablet by mouth every 6 (six) hours asneeded for pain. 21/IRON FU/FOLIC ACID ( COMPLETE ORAL) Take by mouth. STOP taking these medications metroNIDAZOLE (FLAGYL) 500 MG tablet Comments: Reason for Stopping: Physician(s) Family Provider: Isaias Bradley MD, Address: [address] [place] [address] / [place] [phone] Follow Up: No follow-up provider specified. Additional Information: Patient instructions, including activity, were given to the patient/family at discharge. Please seethe After Visit Summary in the electronic medical record for details. Time spent on discharge: > 30 minutes Completed by: Lonny Valdes MD on 09/15/20, 2:23 PM documented in this encounter Assessments Diagnosis Migraine variant with headache- Primary Diagnosis Laceration of nose, initial encounter- Primary Discharge Instructions * Instructions* Kenia Prescott MD - 07/21/2019 Sutures to be removed in 5 days * Attachments The following attachments cannot be sent through Care Everywhere. * Lacerations: Stitches (Burmese) documented in this encounter History of Present Illness * Dede Botello RN - 07/21/2019 11:21 AM EDT Laceration to nose cleansed with Hibiclens. Tolerated well. Bleeding controlled. documented in this encounter Health Concerns Infection Onset Date Last Indicated Resolved Time COVID-19 Rule-Out 01/14/2022 01/14/2022 01/15/2022 5:18 AM EDT Infection Onset Date Last Indicated Resolved Time COVID-19 Rule-Out 04/19/2022 04/19/2022 Infection Onset Date Last Indicated Resolved Time COVID-19 Rule-Out 08/14/2022 08/14/2022 08/15/2022 12:24 AM EDT Infection Onset Date Last Indicated Resolved Time COVID-19 Rule-Out 10/05/2022 10/05/2022 Infection Onset Date Last Indicated Resolved Time COVID-19 Rule-Out 10/05/2022 10/05/2022 10/06/2022 8:32 AM EST COVID-19 Confirmed 10/05/2022 10/05/2022 Infection Onset Date Last Indicated Resolved Time COVID-19 Confirmed 10/05/2022 10/05/2022 Medications Administered Section Inactive Administered Medications - up to 3 most recent administrations Medication Order MAR Action Action Date Dose Rate Site cephALEXin 500 mg cap(s) (KEFLEX) 500 mg, ORAL, ONCE, 1 dose, On Tiana 01/27/22 at 0900, Please document the antimicrobial indication: Empiric Given 01/27/2022 8:36 AM EDT 500 mg lidocaine 2 % (XYLOCAINE) URETHRAL, ONCE, 1 dose, On Mon01/27/22 at 0900, FOR EXTERNAL USE ONLY APPLY TO: 6 ml Given 01/27/2022 8:45 AM EDT 6 mL Inactive Administered Medications - up to 3 most recent administrations Medication Order MAR Action Action Date Dose Rate Site NaCl 0.9% iv infusion 30 mL/hr, INTRAVENOUS, CONTINUOUS, Starting on Mon08/09/23 at 0800, Until Mon08/10/23 at 0429, Preprocedure New Bag/Syringe/Bottle 08/09/2023 8:23 AM EDT 30 mL/hr 30 mL/hr Inactive Administered Medications - up to 3 most recent administrations Medication Order MAR Action Action Date Dose Rate Site diphenhydrAMINE 12.5-50 mg injection (BENADRYL) 12.5-50 mg, INTRAVENOUS, DIRECTED, Starting on Mon09/01/22 at 1030, Until Mon09/01/22 at 1429, DOSING DIRECTED BY PHYSICIAN FOR PROCEDURAL SEDATION ONLY, Intraprocedure Given 09/01/2022 10:02 AM EST 50 mg fentaNYL 50 mcg/mL 25-100 mcg injection (SUBLIMAZE) 25-100 mcg, INTRAVENOUS, DIRECTED, Starting on Mon09/01/22 at 1030, Until Tiana 09/01/22 at 1429, DOSING DIRECTED BY PHYSICIAN FOR PROCEDURAL SEDATION ONLY, Intraprocedure Given 09/01/2022 10:06 AM EST 50 mcg Given 09/01/2022 10:00 AM EST 50 mcg lactated ringers iv infusion 30 mL/hr, INTRAVENOUS, CONTINUOUS, Starting on Tiana 09/01/22 at 0930, Until Tiana 09/01/22 at 1038, Preprocedure New Bag/Syringe/Bottle 09/01/2022 9:15 AM EST 30 mL/hr 30 mL/hr midazolam (PF) 1-5 mg injection (VERSED) 1-5 mg, INTRAVENOUS, DIRECTED, Starting on Tiana 09/01/22 at 1030, Until Tiana 09/01/22 at 1429, DOSING DIRECTED BY PHYSICIAN FOR PROCEDURAL SEDATION ONLY, Intraprocedure Given 09/01/2022 10:06 AM EST 2 mg Given 09/01/2022 10:04 AM EST 2 mg Given 09/01/2022 10:00 AM EST 3 mg Reason for Referral Specialty Diagnoses / Procedures Referred By Contac t Referred To Contact Isaias Bradley MD [address] [place] [address] Referral ID Status Reason Start Date Expiration Date Visits Re quested Visits Authorized [id number] Closed 1 1 Specialty Diagnoses / Procedures Referred By Contac t Referred To Contact Jigna Jiang MD [address] [place] [address] Referral ID Status Reason Start Date Expiration Date Visits Re quested Visits Authorized [id number] Closed 1 1 Specialty Diagnoses / Procedures Referred By Contac t Referred To Contact Briseyda Pride MD [address] [place] [address] Referral ID Status Reason Start Date Expiration Date Visits Re quested Visits Authorized [id number] Closed 1 1 Specialty Diagnoses / Procedures Referred By Contac t Referred To Contact Rheumatology Diagnoses SLE (systemic lupus erythematosus related syndrome) (HCC) Procedures CONSULT TO RHEUM/IMMUN DISEASE OFFICE/OUTPATIENT [facility] 60-74 MINUTES Isaias Bradley MD [address] [place] [address] Referral ID Status Reason Start Date Expiration Date Visits Requested Visits Authorized [id number] Authorized PCP Requested Referral 11/24/2022 11/24/2023 1 1 Specialty Diagnoses / Procedures Referred By Contac t Referred To Contact Neurology Diagnoses Seizure-like activity (HCC) Seizure (HCC) Migraine variant with headache Syncope, unspecified syncope type Procedures CONSULT TO NEUROLOGY OFFICE/OUTPATIENT [facility] 60-74 MINUTES Isaias Bradley MD [address] [place] [address] Referral ID Status Reason Start Date Expiration Date Visits Requested Visits Authorized [id number] Authorized PCP Requested Referral 11/24/2022 11/24/2023 1 1 Specialty Diagnoses / Procedures Referred By Contac t Referred To Contact Cardiology Diagnoses Syncope, unspecified syncope type Procedures CONSULT TO CARDIOLOGY OFFICE/OUTPATIENT [facility] 60-74 MINUTES Isaias Bradley MD [address] [place], [place] [id number] Referral ID Status Reason Start Date Expiration Date Visits Requested Visits Authorized [id number] Authorized PCP Requested Referral 11/24/2022 11/24/2023 1 1 Specialty Diagnoses / Procedures Referred By Contac t Referred To Contact Gastroenterology Diagnoses Weight loss Elevated liver enzymes Gastritis without bleeding, unspecified chronicity, unspecified gastritis type Procedures CONSULT TO GASTROENTEROLOGY OFFICE/OUTPATIENT [facility] 60-74 MINUTES Isaias Bradley MD [address] [place], [place] [id number] Referral ID Status Reason Start Date Expiration Date Visits Requested Visits Authorized [id number] Authorized PCP Requested Referral 11/24/2022 11/24/2023 1 1 Specialty Diagnoses / Procedures Referred By Contac t Referred To Contact Endocrinology Diagnoses Adrenal insufficiency (Wabasso's disease) (HCC) Prediabetes Procedures CONSULT TO ENDOCRINOLOGY OFFICE/OUTPATIENT [facility] 60-74 MINUTES Isaias Bradley MD [address] [place] [address] Referral ID Status Reason Start Date Expiration Date Visits Requested Visits Authorized [id number] Authorized PCP Requested Referral 11/24/2022 11/24/2023 1 1 Referral ID Status Reason Start Date Expiration Date Visits Re quested Visits Authorized [id number] Closed 1 1 Specialty Diagnoses / Procedures Referred By Contac t Referred To Contact Pain Management Diagnoses Adrenal insufficiency (Slade's disease) (HCC) Chronic pain syndrome SLE (systemic lupus erythematosus related syndrome) (HCC) Procedures CONSULT TO PAIN MGT OFFICE/OUTPATIENT [facility] 60-[place] [address] [place] [address] Referral ID Status Reason Start Date Expiration Date Visits Requested Visits Authorized [id number] Authorized PCP Requested Referral 01/12/2023 01/12/2024 1 1 Specialty Diagnoses / Procedures Referred By Contac t Referred To Contact Diagnoses Seizure (HCC) Ronald Lovell PA-C [address] [place] [address] Referral ID Status Reason Start Date Expiration Date Visits Re quested Visits Authorized [id number] Closed 1 1 Specialty Diagnoses / Procedures Referred By Contac t Referred To Contact Diagnoses Hepatitis, acute Procedures CONSULT TO HEPATOLOGY OFFICE/OUTPATIENT [facility] 60-74 MINUTES Isaias Bradley MD [address] [place] [address] Referral ID Status Reason Start Date Expiration Date Visits Requested Visits Authorized [id number] Authorized PCP Requested Referral 05/18/2023 05/17/2024 1 1 Specialty Diagnoses / Procedures Referred By Contac t Referred To Contact Diagnoses Lumbar pain Isaias Bradley MD [address] [place] [address] Referral ID Status Reason Start Date Expiration Date Visits Re quested Visits Authorized [id number] Closed 1 1 Referral ID Status Reason Start Date Expiration Date V isits Requested Visits Authorized [id number] Pending Review 1 1 Specialty Diagnoses / Procedures Referred By Contac t Referred To Contact Pain Management Diagnoses Chronic pain syndrome Fatty liver Adrenal insufficiency (Wabasso's disease) (HCC) Procedures CONSULT TO PAIN MGT Isaias Bradley MD [address] [place] [address] Referral ID Status Reason Start Date Expiration Date Visits Requested Visits Authorized [id number] Ref Not Required PCP Requested Referral 04/06/2024 04/06/2025 1 1 Specialty Diagnoses / Procedures Referred By Contac t Referred To Contact [facility] Diagnoses Pain in both lower extremities Acute bilateral low back pain with right-sided sciatica Procedures CONSULT TO PHYSICAL THERAPY PHYSICAL THERAPY EVALUATION HIGH COMPLEX 45 MINS Isaias Bradley MD [address] [place] [address] [facility] [place] [address] [place] [address] Referral ID Status Reason Start Date Expiration Date Visits Requested Visits Authorized [id number] Pending Review Auto-Generat ed Referral 4 08/07/2025 1 1 Specialty Diagnoses / Procedures Referred By Contac t Referred To Contact XR IMAGING Diagnoses Acute bilateral low back pain with right-sided sciatica Procedures XR LUMBAR GENERAL 3V AP/LAT/L5-S1 RADEX SPINE LUMBOSACRAL 2/3 VIEWS Isaias Bradley MD [address] [place] [address] [place] [id number] Referral ID Status Reason Start Date Expiration Date Visits Requested Visits Authorized [id number] New Request Auto-Generat ed Referral 4 09/06/2025 1 1 Specialty Diagnoses / Procedures Referred By Contac t Referred To Contact Diagnoses Panic disorder with agoraphobia Chronic post-traumatic stress disorder (PTSD) Mixed obsessional thoughts and acts Kenisha Daily, FIELD RESEARCH ASSISTANT.HEALTH CLUB MANAGER [address] [place] [address] Referral ID Status Reason Start Date Expiration Date Visits Re quested Visits Authorized [id number] Closed 1 1 Referral ID Status Reason Start Date Expiration Date Visits Re quested Visits Authorized [id number] Closed 1 1 Chief Complaint and Reason for Visit Chief Complaint RUQ ABD PAIN Chief Complaint RUQ ABD PAIN ABDOMINAL PAIN, SLADE'S DISEASE ON HYDROCORIZONE Reason for Visit Addisonian crisis Chief Complaint RUQ ABD PAIN ABDOMINAL PAIN, ADDISONS DISEASE ON HYDROCORTISONE ABDOMINAL PAIN, SLADE'S DISEASE ON HYDROCORIZONE ABDOMINAL PAIN, ADDISONS DISEASE ON HYDROCORTISONE ABDOMINAL PAIN, ADDISONS DISEASE ON HYDROCORTISONE ABDOMINAL PAIN, ADDISONS DISEASE ON HYDROCORTISONE ABDOMINAL PAIN, ADDISONS DISEASE ON HYDROCORTISONE ABDOMINAL PAIN, ADDISONS DISEASE ON HYDROCORTISONE Reason for Visit Addisonian crisis Epigastric pain Lactic acidosis Nausea & vomiting Chief Complaint RUQ ABD PAIN ABDOMINAL PAIN, ADDISONS DISEASE ON HYDROCORTISONE ABDOMINAL PAIN, SLADE'S DISEASE ON HYDROCORIZONE ABDOMINAL PAIN, ADDISONS DISEASE ON HYDROCORTISONE ABDOMINAL PAIN, ADDISONS DISEASE ON HYDROCORTISONE ABDOMINAL PAIN, ADDISONS DISEASE ON HYDROCORTISONE ABDOMINAL PAIN, ADDISONS DISEASE ON HYDROCORTISONE ABDOMINAL PAIN, ADDISONS DISEASE ON HYDROCORTISONE ABDOMINAL PAIN, ADDISONS DISEASE ON HYDROCORTISONE back pain Reason for Visit Epigastric pain Nausea & vomiting Lactic acidosis Chief Complaint RUQ ABD PAIN ABDOMINAL PAIN, ADDISONS DISEASE ON HYDROCORTISONE ABDOMINAL PAIN, SLADE'S DISEASE ON HYDROCORIZONE ABDOMINAL PAIN, ADDISONS DISEASE ON HYDROCORTISONE ABDOMINAL PAIN, ADDISONS DISEASE ON HYDROCORTISONE ABDOMINAL PAIN, ADDISONS DISEASE ON HYDROCORTISONE ABDOMINAL PAIN, ADDISONS DISEASE ON HYDROCORTISONE ABDOMINAL PAIN, ADDISONS DISEASE ON HYDROCORTISONE ABDOMINAL PAIN, ADDISONS DISEASE ON HYDROCORTISONE back pain URINARY C/O, RIGHT FLANK PAIN, RLQ ABD PAIN Reason for Visit Epigastric pain Nausea & vomiting Lactic acidosis Chief Complaint RUQ ABD PAIN ABDOMINAL PAIN, ADDISONS DISEASE ON HYDROCORTISONE ABDOMINAL PAIN, SLADE'S DISEASE ON HYDROCORIZONE ABDOMINAL PAIN, ADDISONS DISEASE ON HYDROCORTISONE ABDOMINAL PAIN, ADDISONS DISEASE ON HYDROCORTISONE ABDOMINAL PAIN, ADDISONS DISEASE ON HYDROCORTISONE ABDOMINAL PAIN, ADDISONS DISEASE ON HYDROCORTISONE ABDOMINAL PAIN, ADDISONS DISEASE ON HYDROCORTISONE ABDOMINAL PAIN, ADDISONS DISEASE ON HYDROCORTISONE back pain URINARY C/O, RIGHT FLANK PAIN, RLQ ABD PAIN PETERSON Reason for Visit Epigastric pain Nausea & vomiting Lactic acidosis Chief Complaint RUQ ABD PAIN ABDOMINAL PAIN, ADDISONS DISEASE ON HYDROCORTISONE ABDOMINAL PAIN, SLADE'S DISEASE ON HYDROCORIZONE ABDOMINAL PAIN, ADDISONS DISEASE ON HYDROCORTISONE ABDOMINAL PAIN, ADDISONS DISEASE ON HYDROCORTISONE ABDOMINAL PAIN, ADDISONS DISEASE ON HYDROCORTISONE ABDOMINAL PAIN, ADDISONS DISEASE ON HYDROCORTISONE ABDOMINAL PAIN, ADDISONS DISEASE ON HYDROCORTISONE ABDOMINAL PAIN, ADDISONS DISEASE ON HYDROCORTISONE back pain URINARY C/O, RIGHT FLANK PAIN, RLQ ABD PAIN PETERSON Reason for Visit Epigastric pain Nausea & vomiting Lactic acidosis Chief Complaint RUQ ABD PAIN ABDOMINAL PAIN, ADDISONS DISEASE ON HYDROCORTISONE ABDOMINAL PAIN, SLADE'S DISEASE ON HYDROCORIZONE ABDOMINAL PAIN, ADDISONS DISEASE ON HYDROCORTISONE ABDOMINAL PAIN, ADDISONS DISEASE ON HYDROCORTISONE ABDOMINAL PAIN, ADDISONS DISEASE ON HYDROCORTISONE ABDOMINAL PAIN, ADDISONS DISEASE ON HYDROCORTISONE ABDOMINAL PAIN, ADDISONS DISEASE ON HYDROCORTISONE ABDOMINAL PAIN, ADDISONS DISEASE ON HYDROCORTISONE back pain URINARY C/O, RIGHT FLANK PAIN, RLQ ABD PAIN PETERSON UNABLE TO URINATE Reason for Visit Epigastric pain Nausea & vomiting Lactic acidosis Chief Complaint RUQ ABD PAIN ABDOMINAL PAIN, ADDISONS DISEASE ON HYDROCORTISONE ABDOMINAL PAIN, SLADE'S DISEASE ON HYDROCORIZONE ABDOMINAL PAIN, ADDISONS DISEASE ON HYDROCORTISONE ABDOMINAL PAIN, ADDISONS DISEASE ON HYDROCORTISONE ABDOMINAL PAIN, ADDISONS DISEASE ON HYDROCORTISONE ABDOMINAL PAIN, ADDISONS DISEASE ON HYDROCORTISONE ABDOMINAL PAIN, ADDISONS DISEASE ON HYDROCORTISONE ABDOMINAL PAIN, ADDISONS DISEASE ON HYDROCORTISONE back pain URINARY C/O, RIGHT FLANK PAIN, RLQ ABD PAIN PETERSON UNABLE TO URINATE DIZZINESS FALL Reason for Visit Epigastric pain Nausea & vomiting Lactic acidosis Chief Complaint RUQ ABD PAIN ABDOMINAL PAIN, ADDISONS DISEASE ON HYDROCORTISONE ABDOMINAL PAIN, SLADE'S DISEASE ON HYDROCORIZONE ABDOMINAL PAIN, ADDISONS DISEASE ON HYDROCORTISONE ABDOMINAL PAIN, ADDISONS DISEASE ON HYDROCORTISONE ABDOMINAL PAIN, ADDISONS DISEASE ON HYDROCORTISONE ABDOMINAL PAIN, ADDISONS DISEASE ON HYDROCORTISONE ABDOMINAL PAIN, ADDISONS DISEASE ON HYDROCORTISONE ABDOMINAL PAIN, ADDISONS DISEASE ON HYDROCORTISONE back pain URINARY C/O, RIGHT FLANK PAIN, RLQ ABD PAIN PETERSON UNABLE TO URINATE DIZZINESS FALL nausea, vomiting Reason for Visit Epigastric pain Nausea & vomiting Lactic acidosis Chief Complaint DIZZINESS FALL nausea, vomiting seizure Reason for Visit Epigastric pain Graves disease Nausea & vomiting Seizure disorder Chief Complaint DIZZINESS FALL nausea, vomiting seizure SEIZURE dizziness Reason for Visit Epigastric pain Graves disease Nausea & vomiting Seizure disorder Chief Complaint DIZZINESS FALL nausea, vomiting seizure SEIZURE dizziness SLADE FLARE UP Reason for Visit Epigastric pain Graves disease Nausea & vomiting Seizure disorder Chief Complaint DIZZINESS FALL nausea, vomiting seizure SEIZURE dizziness SLADE FLARE UP SEIZURE Reason for Visit Epigastric pain Graves disease Nausea & vomiting Seizure disorder Chief Complaint dizziness SLADE FLARE UP SEIZURE n/v/d, abd pain Chief Complaint n/v/d, abd pain NAUSEA Chief Complaint Admit Date GENERAL ILLNESS December 10, 2024 12:17pm DEHYDRATION, NAUSEA, VOMITING January 7:07pm Chief Complaint Admit Date DEHYDRATION, NAUSEA, VOMITING January 7:07pm Seizure February 16, 2025 10: 32pm DEHYDRATION, NAUSEA, VOMITING January 11:08am DEHYDRATION, NAUSEA, VOMITING January 10:38am DEHYDRATION, NAUSEA, VOMITING January 11:26am DEHYDRATION, NAUSEA, VOMITING February 20, 2 025 10:23am CONCERNS FOR ADRENAL CRISIS June 16, 2025 5:13pm Reason for Visit Admit Date Acute adrenal insufficiency February 16, 2025 7:07pm Epigastric pain February 16, 2025 7:0 7pm Nausea, vomiting and diarrhea January 7:07pm Orthostatic hypotension February 16, 2025 7:07pm Abdominal pain February 16, 2025 7:0 7pm Chief Complaint Admit Date DEHYDRATION, NAUSEA, VOMITING January 7:07pm DEHYDRATION, NAUSEA, VOMITING January 11:08am DEHYDRATION, NAUSEA, VOMITING January 10:38am DEHYDRATION, NAUSEA, VOMITING January 11:26am DEHYDRATION, NAUSEA, VOMITING February 20, 2 025 10:23am CONCERNS FOR ADRENAL CRISIS June 16, 2025 5:13pm Reason for Visit Admit Date Acute adrenal insufficiency February 16, 2025 7:07pm Epigastric pain February 16, 2025 7:0 7pm Nausea, vomiting and diarrhea January 7:07pm Orthostatic hypotension February 16, 2025 7:07pm Abdominal pain February 16, 2025 7:0 7pm Acute adrenal insufficiency June 16, 2025 5:13pm Chief Complaint Admit Date CONCERNS FOR ADRENAL CRISIS June 16, 2025 5:13pm CONCERNS FOR ADRENAL CRISIS June 17, 2025 3:49pm ADRENAL CRISIS July 20, 2025 3:05pm ADRENAL CRISIS July 21, 2025 9:07am ADRENAL CRISIS July 22, 2025 9:53am Reason for Visit Admit Date Acute adrenal insufficiency June 16, 2025 5:13pm Acute adrenal insufficiency July 202024 3:05pm Elevated liver enzymes July 20, 2 025 3:05pm Myalgia July 20, 2025 3:05pm Weakness Karen 28th, 2025 3:05pm Additional Source Comments INFORMATION SOURCE (unrecogn ized section and content) DATE CREATED AUTHOR 04/17/2018 [facility] ([place]) DATE CREATED AUTHOR AUTHOR'S ORGANIZ ATION 04/18/2018 [facility] DATE CREATED AUTHOR AUTHOR'S ORGANIZ ATION 04/18/2018 [facility] DATE CREATED AUTHOR AUTHOR'S ORGANIZ ATION 07/22/2019 [facility] DATE CREATED AUTHOR AUTHOR'S ORGANIZ ATION 09/16/2020 [facility] DATE CREATED AUTHOR AUTHOR'S ORGANIZ ATION 07/10/2021 [facility] DATE CREATED AUTHOR AUTHOR'S ORGANIZ ATION 08/01/2022 [facility] DATE CREATED AUTHOR AUTHOR'S ORGANIZ ATION 11/24/2022 [facility] DATE CREATED AUTHOR AUTHOR'S ORGANIZ ATION 04/01/2023 [facility] DATE CREATED AUTHOR AUTHOR'S ORGANIZ ATION 05/12/2023 [facility] DATE CREATED AUTHOR AUTHOR'S ORGANIZ ATION 07/28/2023 [facility] DATE CREATED AUTHOR AUTHOR'S ORGANIZ ATION 03/11/2024 [facility] DATE CREATED AUTHOR AUTHOR'S ORGANIZ ATION 05/23/2024 [facility] ([place]) DATE CREATED AUTHOR AUTHOR'S ORGANIZ ATION 05/13/2025 [facility] DATE CREATED AUTHOR AUTHOR'S ORGANIZ ATION 07/26/2025 [facility] DATE CREATED AUTHOR AUTHOR'S ORGANIZ ATION 08/29/2025 [facility] DATE CREATED AUTHOR AUTHOR'S ORGANIZ ATION 09/04/2025 [facility] Reason for Visit (unrecogniz ed section and content) Reason Comments Follow Up Specialty Diagnoses / Procedures Referred By Kathryn damico Referred To Contact Psychiatry / ADULT PSYCHIATRY Diagnoses follow up Procedures VIDEO PSYC/PSYL EST Self Kenisha Daily, FIELD RESEARCH ASSISTANT.HEALTH CLUB MANAGER [address] [facility] [address] Referral ID Status Reason Start Date Expiration Date V isits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 Outcome: Partially Met Goal: Knowledge of Enviroment Outcome: Partially Met Problem: Pain Goal: Manage acute pain Outcome: Partially Met Goal: Manage chronic pain Outcome: Partially Met Goal: Reduced pain sensation Outcome: Partially Met Goal: Achievement of comfort function goal Outcome: Partially Met documented in this encounter Source Comments (unrecognize d section and content) In the event this informatio n is protected by the Federal Confidentiality of Alcohol and Drug Abuse Patient Records regulations: The Federal rules restrict any use of the information to criminally investigate or prosecute any alcohol or drug abuse patient.[facility]In the event this information is protected by the Federal Confidentiality of Alcohol and Drug Abuse Patient Records regulations: The Federal rules restrict any use of the information to criminally investigate or prosecute any alcohol or drug abuse patient.[facility]imaIn the event this information is protected by the Federal Confidentiality of Alcohol and Drug Abuse Patient Records regulations: The Federal rules restrict any use of the information to criminally investigate or prosecute any alcohol or drug abuse patient.[facility]imaIn the event this information is protected by the Federal Confidentiality of Alcohol and Drug Abuse Patient Records regulations: The Federal rules restrict any use of the information to criminally investigate or prosecute any alcohol or drug abuse patient.[facility]imaIn the event this information is protected by the Federal Confidentiality of Alcohol and Drug Abuse Patient Records regulations: The Federal rules restrict any use of the information to criminally investigate or prosecute any alcohol or drug abuse patient.[facility]imaIn the event this information is protected by the Federal Confidentiality of Alcohol and Drug Abuse Patient Records regulations: The Federal rules restrict any use of the information to criminally investigate or prosecute any alcohol or drug abuse patient.[facility]imaIn the event this information is protected by the Federal Confidentiality of Alcohol and Drug Abuse Patient Records regulations: The Federal rules restrict any use of the information to criminally investigate or prosecute any alcohol or drug abuse patient.[facility]imaIn the event this information is protected by the Federal Confidentiality of Alcohol and Drug Abuse Patient Records regulations: The Federal rules restrict any use of the information to criminally investigate or prosecute any alcohol or drug abuse patient.[facility]imaIn the event this information is protected by the Federal Confidentiality of Alcohol and Drug Abuse Patient Records regulations: The Federal rules restrict any use of the information to criminally investigate or prosecute any alcohol or drug abuse patient.[facility]imaIn the event this information is protected by the Federal Confidentiality of Alcohol and Drug Abuse Patient Records regulations: The Federal rules restrict any use of the information to criminally investigate or prosecute any alcohol or drug abuse patient.[facility]imaIn the event this information is protected by the Federal Confidentiality of Alcohol and Drug Abuse Patient Records regulations: The Federal rules restrict any use of the information to criminally investigate or prosecute any alcohol or drug abuse patient.[facility]imaIn the event this information is protected by the Federal Confidentiality of Alcohol and Drug Abuse Patient Records regulations: The Federal rules restrict any use of the information to criminally investigate or prosecute any alcohol or drug abuse patient.[facility]imaIn the event this information is protected by the Federal Confidentiality of Alcohol and Drug Abuse Patient Records regulations: The Federal rules restrict any use of the information to criminally investigate or prosecute any alcohol or drug abuse patient.[facility]imaIn the event this information is protected by the Federal Confidentiality of Alcohol and Drug Abuse Patient Records regulations: The Federal rules restrict any use of the information to criminally investigate or prosecute any alcohol or drug abuse patient.[facility]imaIn the event this information is protected by the Federal Confidentiality of Alcohol and Drug Abuse Patient Records regulations: The Federal rules restrict any use of the information to criminally investigate or prosecute any alcohol or drug abuse patient.[facility]imaIn the event this information is protected by the Federal Confidentiality of Alcohol and Drug Abuse Patient Records regulations: The Federal rules restrict any use of the information to criminally investigate or prosecute any alcohol or drug abuse patient.[facility]imaIn the event this information is protected by the Federal Confidentiality of Alcohol and Drug Abuse Patient Records regulations: The Federal rules restrict any use of the information to criminally investigate or prosecute any alcohol or drug abuse patient.[facility]imaIn the event this information is protected by the Federal Confidentiality of Alcohol and Drug Abuse Patient Records regulations: The Federal rules restrict any use of the information to criminally investigate or prosecute any alcohol or drug abuse patient.[facility]imaIn the event this information is protected by the Federal Confidentiality of Alcohol and Drug Abuse Patient Records regulations: The Federal rules restrict any use of the information to criminally investigate or prosecute any alcohol or drug abuse patient.[facility]imaIn the event this information is protected by the Federal Confidentiality of Alcohol and Drug Abuse Patient Records regulations: The Federal rules restrict any use of the information to criminally investigate or prosecute any alcohol or drug abuse patient.[facility]imaIn the event this information is protected by the Federal Confidentiality of Alcohol and Drug Abuse Patient Records regulations: The Federal rules restrict any use of the information to criminally investigate or prosecute any alcohol or drug abuse patient.[facility]imaIn the event this information is protected by the Federal Confidentiality of Alcohol and Drug Abuse Patient Records regulations: The Federal rules restrict any use of the information to criminally investigate or prosecute any alcohol or drug abuse patient.[facility]imaIn the event this information is protected by the Federal Confidentiality of Alcohol and Drug Abuse Patient Records regulations: The Federal rules restrict any use of the information to criminally investigate or prosecute any alcohol or drug abuse patient.[facility]imaIn the event this information is protected by the Federal Confidentiality of Alcohol and Drug Abuse Patient Records regulations: The Federal rules restrict any use of the information to criminally investigate or prosecute any alcohol or drug abuse patient.[facility]imaIn the event this information is protected by the Federal Confidentiality of Alcohol and Drug Abuse Patient Records regulations: The Federal rules restrict any use of the information to criminally investigate or prosecute any alcohol or drug abuse patient.[facility]imaIn the event this information is protected by the Federal Confidentiality of Alcohol and Drug Abuse Patient Records regulations: The Federal rules restrict any use of the information to criminally investigate or prosecute any alcohol or drug abuse patient.[facility]imaIn the event this information is protected by the Federal Confidentiality of Alcohol and Drug Abuse Patient Records regulations: The Federal rules restrict any use of the information to criminally investigate or prosecute any alcohol or drug abuse patient.[facility]imaIn the event this information is protected by the Federal Confidentiality of Alcohol and Drug Abuse Patient Records regulations: The Federal rules restrict any use of the information to criminally investigate or prosecute any alcohol or drug abuse patient.[facility]imaIn the event this information is protected by the Federal Confidentiality of Alcohol and Drug Abuse Patient Records regulations: The Federal rules restrict any use of the information to criminally investigate or prosecute any alcohol or drug abuse patient.[facility]imaIn the event this information is protected by the Federal Confidentiality of Alcohol and Drug Abuse Patient Records regulations: The Federal rules restrict any use of the information to criminally investigate or prosecute any alcohol or drug abuse patient.[facility]imaIn the event this information is protected by the Federal Confidentiality of Alcohol and Drug Abuse Patient Records regulations: The Federal rules restrict any use of the information to criminally investigate or prosecute any alcohol or drug abuse patient.[facility]imaIn the event this information is protected by the Federal Confidentiality of Alcohol and Drug Abuse Patient Records regulations: The Federal rules restrict any use of the information to criminally investigate or prosecute any alcohol or drug abuse patient.[facility]imaIn the event this information is protected by the Federal Confidentiality of Alcohol and Drug Abuse Patient Records regulations: The Federal rules restrict any use of the information to criminally investigate or prosecute any alcohol or drug abuse patient.[facility]imaIn the event this information is protected by the Federal Confidentiality of Alcohol and Drug Abuse Patient Records regulations: The Federal rules restrict any use of the information to criminally investigate or prosecute any alcohol or drug abuse patient.[facility]imaIn the event this information is protected by the Federal Confidentiality of Alcohol and Drug Abuse Patient Records regulations: The Federal rules restrict any use of the information to criminally investigate or prosecute any alcohol or drug abuse patient.[facility]imaIn the event this information is protected by the Federal Confidentiality of Alcohol and Drug Abuse Patient Records regulations: The Federal rules restrict any use of the information to criminally investigate or prosecute any alcohol or drug abuse patient.[facility]imaIn the event this information is protected by the Federal Confidentiality of Alcohol and Drug Abuse Patient Records regulations: The Federal rules restrict any use of the information to criminally investigate or prosecute any alcohol or drug abuse patient.[facility]imaIn the event this information is protected by the Federal Confidentiality of Alcohol and Drug Abuse Patient Records regulations: The Federal rules restrict any use of the information to criminally investigate or prosecute any alcohol or drug abuse patient.[facility]imaIn the event this information is protected by the Federal Confidentiality of Alcohol and Drug Abuse Patient Records regulations: The Federal rules restrict any use of the information to criminally investigate or prosecute any alcohol or drug abuse patient.[facility]imaIn the event this information is protected by the Federal Confidentiality of Alcohol and Drug Abuse Patient Records regulations: The Federal rules restrict any use of the information to criminally investigate or prosecute any alcohol or drug abuse patient.[facility]imaIn the event this information is protected by the Federal Confidentiality of Alcohol and Drug Abuse Patient Records regulations: The Federal rules restrict any use of the information to criminally investigate or prosecute any alcohol or drug abuse patient.[facility]imaIn the event this information is protected by the Federal Confidentiality of Alcohol and Drug Abuse Patient Records regulations: The Federal rules restrict any use of the information to criminally investigate or prosecute any alcohol or drug abuse patient.[facility]imaIn the event this information is protected by the Federal Confidentiality of Alcohol and Drug Abuse Patient Records regulations: The Federal rules restrict any use of the information to criminally investigate or prosecute any alcohol or drug abuse patient.[facility]imaIn the event this information is protected by the Federal Confidentiality of Alcohol and Drug Abuse Patient Records regulations: The Federal rules restrict any use of the information to criminally investigate or prosecute any alcohol or drug abuse patient.[facility]imaIn the event this information is protected by the Federal Confidentiality of Alcohol and Drug Abuse Patient Records regulations: The Federal rules restrict any use of the information to criminally investigate or prosecute any alcohol or drug abuse patient.[facility]imaIn the event this information is protected by the Federal Confidentiality of Alcohol and Drug Abuse Patient Records regulations: The Federal rules restrict any use of the information to criminally investigate or prosecute any alcohol or drug abuse patient.[facility]imaIn the event this information is protected by the Federal Confidentiality of Alcohol and Drug Abuse Patient Records regulations: The Federal rules restrict any use of the information to criminally investigate or prosecute any alcohol or drug abuse patient.[facility]imaIn the event this information is protected by the Federal Confidentiality of Alcohol and Drug Abuse Patient Records regulations: The Federal rules restrict any use of the information to criminally investigate or prosecute any alcohol or drug abuse patient.[facility]imaIn the event this information is protected by the Federal Confidentiality of Alcohol and Drug Abuse Patient Records regulations: The Federal rules restrict any use of the information to criminally investigate or prosecute any alcohol or drug abuse patient.[facility]imaIn the event this information is protected by the Federal Confidentiality of Alcohol and Drug Abuse Patient Records regulations: The Federal rules restrict any use of the information to criminally investigate or prosecute any alcohol or drug abuse patient.[facility]In the event this information is protected by the Federal Confidentiality of Alcohol and Drug Abuse Patient Records regulations: The Federal rules restrict any use of the information to criminally investigate or prosecute any alcohol or drug abuse patient.[facility] [place]In the event this information is protected by the Federal Confidentiality of Alcohol and Drug Abuse Patient Records regulations: The Federal rules restrict any use of the information to criminally investigate or prosecute any alcohol or drug abuse patient.[facility] [place]In the event this information is protected by the Federal Confidentiality of Alcohol and Drug Abuse Patient Records regulations: The Federal rules restrict any use of the information to criminally investigate or prosecute any alcohol or drug abuse patient.[facility] [place]In the event this information is protected by the Federal Confidentiality of Alcohol and Drug Abuse Patient Records regulations: The Federal rules restrict any use of the information to criminally investigate or prosecute any alcohol or drug abuse patient.[facility]In the event this information is protected by the Federal Confidentiality of Alcohol and Drug Abuse Patient Records regulations: The Federal rules restrict any use of the information to criminally investigate or prosecute any alcohol or drug abuse patient.[facility] [place]In the event this information is protected by the Federal Confidentiality of Alcohol and Drug Abuse Patient Records regulations: The Federal rules restrict any use of the information to criminally investigate or prosecute any alcohol or drug abuse patient.[facility] [place]In the event this information is protected by the Federal Confidentiality of Alcohol and Drug Abuse Patient Records regulations: The Federal rules restrict any use of the information to criminally investigate or prosecute any alcohol or drug abuse patient.[facility] [place]In the event this information is protected by the Federal Confidentiality of Alcohol and Drug Abuse Patient Records regulations: The Federal rules restrict any use of the information to criminally investigate or prosecute any alcohol or drug abuse patient.[facility] [place]In the event this information is protected by the Federal Confidentiality of Alcohol and Drug Abuse Patient Records regulations: The Federal rules restrict any use of the information to criminally investigate or prosecute any alcohol or drug abuse patient.[facility] [place]In the event this information is protected by the Federal Confidentiality of Alcohol and Drug Abuse Patient Records regulations: The Federal rules restrict any use of the information to criminally investigate or prosecute any alcohol or drug abuse patient.[facility] [place]In the event this information is protected by the Federal Confidentiality of Alcohol and Drug Abuse Patient Records regulations: The Federal rules restrict any use of the information to criminally investigate or prosecute any alcohol or drug abuse patient.[facility] [place]In the event this information is protected by the Federal Confidentiality of Alcohol and Drug Abuse Patient Records regulations: The Federal rules restrict any use of the information to criminally investigate or prosecute any alcohol or drug abuse patient.[facility] [place]In the event this information is protected by the Federal Confidentiality of Alcohol and Drug Abuse Patient Records regulations: The Federal rules restrict any use of the information to criminally investigate or prosecute any alcohol or drug abuse patient.[facility] [place]In the event this information is protected by the Federal Confidentiality of Alcohol and Drug Abuse Patient Records regulations: The Federal rules restrict any use of the information to criminally investigate or prosecute any alcohol or drug abuse patient.[facility] [place]In the event this information is protected by the Federal Confidentiality of Alcohol and Drug Abuse Patient Records regulations: The Federal rules restrict any use of the information to criminally investigate or prosecute any alcohol or drug abuse patient.[facility]In the event this information is protected by the Federal Confidentiality of Alcohol and Drug Abuse Patient Records regulations: The Federal rules restrict any use of the information to criminally investigate or prosecute any alcohol or drug abuse patient.[facility] [place]In the event this information is protected by the Federal Confidentiality of Alcohol and Drug Abuse Patient Records regulations: The Federal rules restrict any use of the information to criminally investigate or prosecute any alcohol or drug abuse patient.[facility] [place]In the event this information is protected by the Federal Confidentiality of Alcohol and Drug Abuse Patient Records regulations: The Federal rules restrict any use of the information to criminally investigate or prosecute any alcohol or drug abuse patient.[facility] [place]In the event this information is protected by the Federal Confidentiality of Alcohol and Drug Abuse Patient Records regulations: The Federal rules restrict any use of the information to criminally investigate or prosecute any alcohol or drug abuse patient.[facility] [place]In the event this information is protected by the Federal Confidentiality of Alcohol and Drug Abuse Patient Records regulations: The Federal rules restrict any use of the information to criminally investigate or prosecute any alcohol or drug abuse patient.[facility] [place]In the event this information is protected by the Federal Confidentiality of Alcohol and Drug Abuse Patient Records regulations: The Federal rules restrict any use of the information to criminally investigate or prosecute any alcohol or drug abuse patient.[facility] [place]In the event this information is protected by the Federal Confidentiality of Alcohol and Drug Abuse Patient Records regulations: The Federal rules restrict any use of the information to criminally investigate or prosecute any alcohol or drug abuse patient.[facility] [place]In the event this information is protected by the Federal Confidentiality of Alcohol and Drug Abuse Patient Records regulations: The Federal rules restrict any use of the information to criminally investigate or prosecute any alcohol or drug abuse patient.[facility] [place]In the event this information is protected by the Federal Confidentiality of Alcohol and Drug Abuse Patient Records regulations: The Federal rules restrict any use of the information to criminally investigate or prosecute any alcohol or drug abuse patient.[facility] [place]In the event this information is protected by the Federal Confidentiality of Alcohol and Drug Abuse Patient Records regulations: The Federal rules restrict any use of the information to criminally investigate or prosecute any alcohol or drug abuse patient.[facility] [place]In the event this information is protected by the Federal Confidentiality of Alcohol and Drug Abuse Patient Records regulations: The Federal rules restrict any use of the information to criminally investigate or prosecute any alcohol or drug abuse patient.[facility] [place]imaIn the event this information is protected by the Federal Confidentiality of Alcohol and Drug Abuse Patient Records regulations: The Federal rules restrict any use of the information to criminally investigate or prosecute any alcohol or drug abuse patient.[facility] [place]In the event this information is protected by the Federal Confidentiality of Alcohol and Drug Abuse Patient Records regulations: The Federal rules restrict any use of the information to criminally investigate or prosecute any alcohol or drug abuse patient.[facility] [place]In the event this information is protected by the Federal Confidentiality of Alcohol and Drug Abuse Patient Records regulations: The Federal rules restrict any use of the information to criminally investigate or prosecute any alcohol or drug abuse patient.[facility] [place]In the event this information is protected by the Federal Confidentiality of Alcohol and Drug Abuse Patient Records regulations: The Federal rules restrict any use of the information to criminally investigate or prosecute any alcohol or drug abuse patient.[facility] [place]In the event this information is protected by the Federal Confidentiality of Alcohol and Drug Abuse Patient Records regulations: The Federal rules restrict any use of the information to criminally investigate or prosecute any alcohol or drug abuse patient.[facility] [place]In the event this information is protected by the Federal Confidentiality of Alcohol and Drug Abuse Patient Records regulations: The Federal rules restrict any use of the information to criminally investigate or prosecute any alcohol or drug abuse patient.[facility] [place]In the event this information is protected by the Federal Confidentiality of Alcohol and Drug Abuse Patient Records regulations: The Federal rules restrict any use of the information to criminally investigate or prosecute any alcohol or drug abuse patient.[facility] [place]In the event this information is protected by the Federal Confidentiality of Alcohol and Drug Abuse Patient Records regulations: The Federal rules restrict any use of the information to criminally investigate or prosecute any alcohol or drug abuse patient.[facility] [place]In the event this information is protected by the Federal Confidentiality of Alcohol and Drug Abuse Patient Records regulations: The Federal rules restrict any use of the information to criminally investigate or prosecute any alcohol or drug abuse patient.[facility] [place]In the event this information is protected by the Federal Confidentiality of Alcohol and Drug Abuse Patient Records regulations: The Federal rules restrict any use of the information to criminally investigate or prosecute any alcohol or drug abuse patient.[facility] [place]In the event this information is protected by the Federal Confidentiality of Alcohol and Drug Abuse Patient Records regulations: The Federal rules restrict any use of the information to criminally investigate or prosecute any alcohol or drug abuse patient.[facility] [place]In the event this information is protected by the Federal Confidentiality of Alcohol and Drug Abuse Patient Records regulations: The Federal rules restrict any use of the information to criminally investigate or prosecute any alcohol or drug abuse patient.[facility] [place]In the event this information is protected by the Federal Confidentiality of Alcohol and Drug Abuse Patient Records regulations: The Federal rules restrict any use of the information to criminally investigate or prosecute any alcohol or drug abuse patient.[facility] [place]In the event this information is protected by the Federal Confidentiality of Alcohol and Drug Abuse Patient Records regulations: The Federal rules restrict any use of the information to criminally investigate or prosecute any alcohol or drug abuse patient.[facility] [place]In the event this information is protected by the Federal Confidentiality of Alcohol and Drug Abuse Patient Records regulations: The Federal rules restrict any use of the information to criminally investigate or prosecute any alcohol or drug abuse patient.[facility] [place]In the event this information is protected by the Federal Confidentiality of Alcohol and Drug Abuse Patient Records regulations: The Federal rules restrict any use of the information to criminally investigate or prosecute any alcohol or drug abuse patient.[facility] [place]imaIn the event this information is protected by the Federal Confidentiality of Alcohol and Drug Abuse Patient Records regulations: The Federal rules restrict any use of the information to criminally investigate or prosecute any alcohol or drug abuse patient.[facility]imaIn the event this information is protected by the Federal Confidentiality of Alcohol and Drug Abuse Patient Records regulations: The Federal rules restrict any use of the information to criminally investigate or prosecute any alcohol or drug abuse patient.[facility] [place]imaIn the event this information is protected by the Federal Confidentiality of Alcohol and Drug Abuse Patient Records regulations: The Federal rules restrict any use of the information to criminally investigate or prosecute any alcohol or drug abuse patient.[facility] [place]In the event this information is protected by the Federal Confidentiality of Alcohol and Drug Abuse Patient Records regulations: The Federal rules restrict any use of the information to criminally investigate or prosecute any alcohol or drug abuse patient.[facility]In the event this information is protected by the Federal Confidentiality of Alcohol and Drug Abuse Patient Records regulations: The Federal rules restrict any use of the information to criminally investigate or prosecute any alcohol or drug abuse patient.[facility]In the event this information is protected by the Federal Confidentiality of Alcohol and Drug Abuse Patient Records regulations: The Federal rules restrict any use of the information to criminally investigate or prosecute any alcohol or drug abuse patient.[facility] [place]In the event this information is protected by the Federal Confidentiality of Alcohol and Drug Abuse Patient Records regulations: The Federal rules restrict any use of the information to criminally investigate or prosecute any alcohol or drug abuse patient.[facility] [place]imaIn the event this information is protected by the Federal Confidentiality of Alcohol and Drug Abuse Patient Records regulations: The Federal rules restrict any use of the information to criminally investigate or prosecute any alcohol or drug abuse patient.[facility] [place]In the event this information is protected by the Federal Confidentiality of Alcohol and Drug Abuse Patient Records regulations: The Federal rules restrict any use of the information to criminally investigate or prosecute any alcohol or drug abuse patient.[facility] [place]In the event this information is protected by the Federal Confidentiality of Alcohol and Drug Abuse Patient Records regulations: The Federal rules restrict any use of the information to criminally investigate or prosecute any alcohol or drug abuse patient.[facility] [place]In the event this information is protected by the Federal Confidentiality of Alcohol and Drug Abuse Patient Records regulations: The Federal rules restrict any use of the information to criminally investigate or prosecute any alcohol or drug abuse patient.[facility] [place]In the event this information is protected by the Federal Confidentiality of Alcohol and Drug Abuse Patient Records regulations: The Federal rules restrict any use of the information to criminally investigate or prosecute any alcohol or drug abuse patient.[facility] [place]In the event this information is protected by the Federal Confidentiality of Alcohol and Drug Abuse Patient Records regulations: The Federal rules restrict any use of the information to criminally investigate or prosecute any alcohol or drug abuse patient.[facility] [place]In the event this information is protected by the Federal Confidentiality of Alcohol and Drug Abuse Patient Records regulations: The Federal rules restrict any use of the information to criminally investigate or prosecute any alcohol or drug abuse patient.[facility] [place]In the event this information is protected by the Federal Confidentiality of Alcohol and Drug Abuse Patient Records regulations: The Federal rules restrict any use of the information to criminally investigate or prosecute any alcohol or drug abuse patient.[facility] [place]imaIn the event this information is protected by the Federal Confidentiality of Alcohol and Drug Abuse Patient Records regulations: The Federal rules restrict any use of the information to criminally investigate or prosecute any alcohol or drug abuse patient.[facility] [place]In the event this information is protected by the Federal Confidentiality of Alcohol and Drug Abuse Patient Records regulations: The Federal rules restrict any use of the information to criminally investigate or prosecute any alcohol or drug abuse patient.[facility] [place]imaIn the event this information is protected by the Federal Confidentiality of Alcohol and Drug Abuse Patient Records regulations: The Federal rules restrict any use of the information to criminally investigate or prosecute any alcohol or drug abuse patient.[facility] [place]imaIn the event this information is protected by the Federal Confidentiality of Alcohol and Drug Abuse Patient Records regulations: The Federal rules restrict any use of the information to criminally investigate or prosecute any alcohol or drug abuse patient.[facility] [place]imaIn the event this information is protected by the Federal Confidentiality of Alcohol and Drug Abuse Patient Records regulations: The Federal rules restrict any use of the information to criminally investigate or prosecute any alcohol or drug abuse patient.[facility]imaIn the event this information is protected by the Federal Confidentiality of Alcohol and Drug Abuse Patient Records regulations: The Federal rules restrict any use of the information to criminally investigate or prosecute any alcohol or drug abuse patient.[facility]In the event this information is protected by the Federal Confidentiality of Alcohol and Drug Abuse Patient Records regulations: The Federal rules restrict any use of the information to criminally investigate or prosecute any alcohol or drug abuse patient.[facility]In the event this information is protected by the Federal Confidentiality of Alcohol and Drug Abuse Patient Records regulations: The Federal rules restrict any use of the information to criminally investigate or prosecute any alcohol or drug abuse patient.[facility]In the event this information is protected by the Federal Confidentiality of Alcohol and Drug Abuse Patient Records regulations: The Federal rules restrict any use of the information to criminally investigate or prosecute any alcohol or drug abuse patient.[facility]In the event this information is protected by the Federal Confidentiality of Alcohol and Drug Abuse Patient Records regulations: The Federal rules restrict any use of the information to criminally investigate or prosecute any alcohol or drug abuse patient.[facility]In the event this information is protected by the Federal Confidentiality of Alcohol and Drug Abuse Patient Records regulations: The Federal rules restrict any use of the information to criminally investigate or prosecute any alcohol or drug abuse patient.[facility]imaIn the event this information is protected by the Federal Confidentiality of Alcohol and Drug Abuse Patient Records regulations: The Federal rules restrict any use of the information to criminally investigate or prosecute any alcohol or drug abuse patient.[facility]In the event this information is protected by the Federal Confidentiality of Alcohol and Drug Abuse Patient Records regulations: The Federal rules restrict any use of the information to criminally investigate or prosecute any alcohol or drug abuse patient.[facility]In the event this information is protected by the Federal Confidentiality of Alcohol and Drug Abuse Patient Records regulations: The Federal rules restrict any use of the information to criminally investigate or prosecute any alcohol or drug abuse patient.[facility] [place]In the event this information is protected by the Federal Confidentiality of Alcohol and Drug Abuse Patient Records regulations: The Federal rules restrict any use of the information to criminally investigate or prosecute any alcohol or drug abuse patient.[facility] [place]imaIn the event this information is protected by the Federal Confidentiality of Alcohol and Drug Abuse Patient Records regulations: The Federal rules restrict any use of the information to criminally investigate or prosecute any alcohol or drug abuse patient.[facility]imaIn the event this information is protected by the Federal Confidentiality of Alcohol and Drug Abuse Patient Records regulations: The Federal rules restrict any use of the information to criminally investigate or prosecute any alcohol or drug abuse patient.[facility]imaIn the event this information is protected by the Federal Confidentiality of Alcohol and Drug Abuse Patient Records regulations: The Federal rules restrict any use of the information to criminally investigate or prosecute any alcohol or drug abuse patient.[facility] [place]imaIn the event this information is protected by the Federal Confidentiality of Alcohol and Drug Abuse Patient Records regulations: The Federal rules restrict any use of the information to criminally investigate or prosecute any alcohol or drug abuse patient.[facility]imaIn the event this information is protected by the Federal Confidentiality of Alcohol and Drug Abuse Patient Records regulations: The Federal rules restrict any use of the information to criminally investigate or prosecute any alcohol or drug abuse patient.[facility]imaIn the event this information is protected by the Federal Confidentiality of Alcohol and Drug Abuse Patient Records regulations: The Federal rules restrict any use of the information to criminally investigate or prosecute any alcohol or drug abuse patient.[facility]imaIn the event this information is protected by the Federal Confidentiality of Alcohol and Drug Abuse Patient Records regulations: The Federal rules restrict any use of the information to criminally investigate or prosecute any alcohol or drug abuse patient.[facility]imaIn the event this information is protected by the Federal Confidentiality of Alcohol and Drug Abuse Patient Records regulations: The Federal rules restrict any use of the information to criminally investigate or prosecute any alcohol or drug abuse patient.[facility] [place]imaIn the event this information is protected by the Federal Confidentiality of Alcohol and Drug Abuse Patient Records regulations: The Federal rules restrict any use of the information to criminally investigate or prosecute any alcohol or drug abuse patient.[facility]imaIn the event this information is protected by the Federal Confidentiality of Alcohol and Drug Abuse Patient Records regulations: The Federal rules restrict any use of the information to criminally investigate or prosecute any alcohol or drug abuse patient.[facility]imaIn the event this information is protected by the Federal Confidentiality of Alcohol and Drug Abuse Patient Records regulations: The Federal rules restrict any use of the information to criminally investigate or prosecute any alcohol or drug abuse patient.[facility] [place]imaIn the event this information is protected by the Federal Confidentiality of Alcohol and Drug Abuse Patient Records regulations: The Federal rules restrict any use of the information to criminally investigate or prosecute any alcohol or drug abuse patient.[facility]imaIn the event this information is protected by the Federal Confidentiality of Alcohol and Drug Abuse Patient Records regulations: The Federal rules restrict any use of the information to criminally investigate or prosecute any alcohol or drug abuse patient.[facility]imaIn the event this information is protected by the Federal Confidentiality of Alcohol and Drug Abuse Patient Records regulations: The Federal rules restrict any use of the information to criminally investigate or prosecute any alcohol or drug abuse patient.[facility]imaIn the event this information is protected by the Federal Confidentiality of Alcohol and Drug Abuse Patient Records regulations: The Federal rules restrict any use of the information to criminally investigate or prosecute any alcohol or drug abuse patient.[facility]imaIn the event this information is protected by the Federal Confidentiality of Alcohol and Drug Abuse Patient Records regulations: The Federal rules restrict any use of the information to criminally investigate or prosecute any alcohol or drug abuse patient.[facility]imaIn the event this information is protected by the Federal Confidentiality of Alcohol and Drug Abuse Patient Records regulations: The Federal rules restrict any use of the information to criminally investigate or prosecute any alcohol or drug abuse patient.[facility]imaIn the event this information is protected by the Federal Confidentiality of Alcohol and Drug Abuse Patient Records regulations: The Federal rules restrict any use of the information to criminally investigate or prosecute any alcohol or drug abuse patient.[facility]imaIn the event this information is protected by the Federal Confidentiality of Alcohol and Drug Abuse Patient Records regulations: The Federal rules restrict any use of the information to criminally investigate or prosecute any alcohol or drug abuse patient.[facility]imaIn the event this information is protected by the Federal Confidentiality of Alcohol and Drug Abuse Patient Records regulations: The Federal rules restrict any use of the information to criminally investigate or prosecute any alcohol or drug abuse patient.[facility]imaIn the event this information is protected by the Federal Confidentiality of Alcohol and Drug Abuse Patient Records regulations: The Federal rules restrict any use of the information to criminally investigate or prosecute any alcohol or drug abuse patient.[facility]imaIn the event this information is protected by the Federal Confidentiality of Alcohol and Drug Abuse Patient Records regulations: The Federal rules restrict any use of the information to criminally investigate or prosecute any alcohol or drug abuse patient.[facility]imaIn the event this information is protected by the Federal Confidentiality of Alcohol and Drug Abuse Patient Records regulations: The Federal rules restrict any use of the information to criminally investigate or prosecute any alcohol or drug abuse patient.[facility]imaIn the event this information is protected by the Federal Confidentiality of Alcohol and Drug Abuse Patient Records regulations: The Federal rules restrict any use of the information to criminally investigate or prosecute any alcohol or drug abuse patient.[facility]imaIn the event this information is protected by the Federal Confidentiality of Alcohol and Drug Abuse Patient Records regulations: The Federal rules restrict any use of the information to criminally investigate or prosecute any alcohol or drug abuse patient.[facility]imaIn the event this information is protected by the Federal Confidentiality of Alcohol and Drug Abuse Patient Records regulations: The Federal rules restrict any use of the information to criminally investigate or prosecute any alcohol or drug abuse patient.[facility]imaIn the event this information is protected by the Federal Confidentiality of Alcohol and Drug Abuse Patient Records regulations: The Federal rules restrict any use of the information to criminally investigate or prosecute any alcohol or drug abuse patient.[facility]imaIn the event this information is protected by the Federal Confidentiality of Alcohol and Drug Abuse Patient Records regulations: The Federal rules restrict any use of the information to criminally investigate or prosecute any alcohol or drug abuse patient.[facility]imaIn the event this information is protected by the Federal Confidentiality of Alcohol and Drug Abuse Patient Records regulations: The Federal rules restrict any use of the information to criminally investigate or prosecute any alcohol or drug abuse patient.[facility]imaIn the event this information is protected by the Federal Confidentiality of Alcohol and Drug Abuse Patient Records regulations: The Federal rules restrict any use of the information to criminally investigate or prosecute any alcohol or drug abuse patient.[facility]imaIn the event this information is protected by the Federal Confidentiality of Alcohol and Drug Abuse Patient Records regulations: The Federal rules restrict any use of the information to criminally investigate or prosecute any alcohol or drug abuse patient.[facility]imaIn the event this information is protected by the Federal Confidentiality of Alcohol and Drug Abuse Patient Records regulations: The Federal rules restrict any use of the information to criminally investigate or prosecute any alcohol or drug abuse patient.[facility]imaIn the event this information is protected by the Federal Confidentiality of Alcohol and Drug Abuse Patient Records regulations: The Federal rules restrict any use of the information to criminally investigate or prosecute any alcohol or drug abuse patient.[facility]imaIn the event this information is protected by the Federal Confidentiality of Alcohol and Drug Abuse Patient Records regulations: The Federal rules restrict any use of the information to criminally investigate or prosecute any alcohol or drug abuse patient.[facility]imaIn the event this information is protected by the Federal Confidentiality of Alcohol and Drug Abuse Patient Records regulations: The Federal rules restrict any use of the information to criminally investigate or prosecute any alcohol or drug abuse patient.[facility]imaIn the event this information is protected by the Federal Confidentiality of Alcohol and Drug Abuse Patient Records regulations: The Federal rules restrict any use of the information to criminally investigate or prosecute any alcohol or drug abuse patient.[facility]imaIn the event this information is protected by the Federal Confidentiality of Alcohol and Drug Abuse Patient Records regulations: The Federal rules restrict any use of the information to criminally investigate or prosecute any alcohol or drug abuse patient.[facility]imaIn the event this information is protected by the Federal Confidentiality of Alcohol and Drug Abuse Patient Records regulations: The Federal rules restrict any use of the information to criminally investigate or prosecute any alcohol or drug abuse patient.[facility]imaIn the event this information is protected by the Federal Confidentiality of Alcohol and Drug Abuse Patient Records regulations: The Federal rules restrict any use of the information to criminally investigate or prosecute any alcohol or drug abuse patient.[facility]imaIn the event this information is protected by the Federal Confidentiality of Alcohol and Drug Abuse Patient Records regulations: The Federal rules restrict any use of the information to criminally investigate or prosecute any alcohol or drug abuse patient.[facility]imaIn the event this information is protected by the Federal Confidentiality of Alcohol and Drug Abuse Patient Records regulations: The Federal rules restrict any use of the information to criminally investigate or prosecute any alcohol or drug abuse patient.[facility]imaIn the event this information is protected by the Federal Confidentiality of Alcohol and Drug Abuse Patient Records regulations: The Federal rules restrict any use of the information to criminally investigate or prosecute any alcohol or drug abuse patient.[facility]imaIn the event this information is protected by the Federal Confidentiality of Alcohol and Drug Abuse Patient Records regulations: The Federal rules restrict any use of the information to criminally investigate or prosecute any alcohol or drug abuse patient.[facility]imaIn the event this information is protected by the Federal Confidentiality of Alcohol and Drug Abuse Patient Records regulations: The Federal rules restrict any use of the information to criminally investigate or prosecute any alcohol or drug abuse patient.[facility]imaIn the event this information is protected by the Federal Confidentiality of Alcohol and Drug Abuse Patient Records regulations: The Federal rules restrict any use of the information to criminally investigate or prosecute any alcohol or drug abuse patient.[facility]imaIn the event this information is protected by the Federal Confidentiality of Alcohol and Drug Abuse Patient Records regulations: The Federal rules restrict any use of the information to criminally investigate or prosecute any alcohol or drug abuse patient.[facility]imaIn the event this information is protected by the Federal Confidentiality of Alcohol and Drug Abuse Patient Records regulations: The Federal rules restrict any use of the information to criminally investigate or prosecute any alcohol or drug abuse patient.[facility]imaIn the event this information is protected by the Federal Confidentiality of Alcohol and Drug Abuse Patient Records regulations: The Federal rules restrict any use of the information to criminally investigate or prosecute any alcohol or drug abuse patient.[facility]imaIn the event this information is protected by the Federal Confidentiality of Alcohol and Drug Abuse Patient Records regulations: The Federal rules restrict any use of the information to criminally investigate or prosecute any alcohol or drug abuse patient.[facility]imaIn the event this information is protected by the Federal Confidentiality of Alcohol and Drug Abuse Patient Records regulations: The Federal rules restrict any use of the information to criminally investigate or prosecute any alcohol or drug abuse patient.[facility]imaIn the event this information is protected by the Federal Confidentiality of Alcohol and Drug Abuse Patient Records regulations: The Federal rules restrict any use of the information to criminally investigate or prosecute any alcohol or drug abuse patient.[facility]imaIn the event this information is protected by the Federal Confidentiality of Alcohol and Drug Abuse Patient Records regulations: The Federal rules restrict any use of the information to criminally investigate or prosecute any alcohol or drug abuse patient.[facility]imaIn the event this information is protected by the Federal Confidentiality of Alcohol and Drug Abuse Patient Records regulations: The Federal rules restrict any use of the information to criminally investigate or prosecute any alcohol or drug abuse patient.[facility]imaIn the event this information is protected by the Federal Confidentiality of Alcohol and Drug Abuse Patient Records regulations: The Federal rules restrict any use of the information to criminally investigate or prosecute any alcohol or drug abuse patient.[facility]imaIn the event this information is protected by the Federal Confidentiality of Alcohol and Drug Abuse Patient Records regulations: The Federal rules restrict any use of the information to criminally investigate or prosecute any alcohol or drug abuse patient.[facility]imaIn the event this information is protected by the Federal Confidentiality of Alcohol and Drug Abuse Patient Records regulations: The Federal rules restrict any use of the information to criminally investigate or prosecute any alcohol or drug abuse patient.[facility]imaIn the event this information is protected by the Federal Confidentiality of Alcohol and Drug Abuse Patient Records regulations: The Federal rules restrict any use of the information to criminally investigate or prosecute any alcohol or drug abuse patient.[facility]imaIn the event this information is protected by the Federal Confidentiality of Alcohol and Drug Abuse Patient Records regulations: The Federal rules restrict any use of the information to criminally investigate or prosecute any alcohol or drug abuse patient.[facility]imaIn the event this information is protected by the Federal Confidentiality of Alcohol and Drug Abuse Patient Records regulations: The Federal rules restrict any use of the information to criminally investigate or prosecute any alcohol or drug abuse patient.[facility]imaIn the event this information is protected by the Federal Confidentiality of Alcohol and Drug Abuse Patient Records regulations: The Federal rules restrict any use of the information to criminally investigate or prosecute any alcohol or drug abuse patient.[facility]imaIn the event this information is protected by the Federal Confidentiality of Alcohol and Drug Abuse Patient Records regulations: The Federal rules restrict any use of the information to criminally investigate or prosecute any alcohol or drug abuse patient.[facility]imaIn the event this information is protected by the Federal Confidentiality of Alcohol and Drug Abuse Patient Records regulations: The Federal rules restrict any use of the information to criminally investigate or prosecute any alcohol or drug abuse patient.[facility]imaIn the event this information is protected by the Federal Confidentiality of Alcohol and Drug Abuse Patient Records regulations: The Federal rules restrict any use of the information to criminally investigate or prosecute any alcohol or drug abuse patient.[facility]imaIn the event this information is protected by the Federal Confidentiality of Alcohol and Drug Abuse Patient Records regulations: The Federal rules restrict any use of the information to criminally investigate or prosecute any alcohol or drug abuse patient.[facility]imaIn the event this information is protected by the Federal Confidentiality of Alcohol and Drug Abuse Patient Records regulations: The Federal rules restrict any use of the information to criminally investigate or prosecute any alcohol or drug abuse patient.[facility]imaIn the event this information is protected by the Federal Confidentiality of Alcohol and Drug Abuse Patient Records regulations: The Federal rules restrict any use of the information to criminally investigate or prosecute any alcohol or drug abuse patient.[facility]imaIn the event this information is protected by the Federal Confidentiality of Alcohol and Drug Abuse Patient Records regulations: The Federal rules restrict any use of the information to criminally investigate or prosecute any alcohol or drug abuse patient.[facility]imaIn the event this information is protected by the Federal Confidentiality of Alcohol and Drug Abuse Patient Records regulations: The Federal rules restrict any use of the information to criminally investigate or prosecute any alcohol or drug abuse patient.[facility]imaIn the event this information is protected by the Federal Confidentiality of Alcohol and Drug Abuse Patient Records regulations: The Federal rules restrict any use of the information to criminally investigate or prosecute any alcohol or drug abuse patient.[facility]imaIn the event this information is protected by the Federal Confidentiality of Alcohol and Drug Abuse Patient Records regulations: The Federal rules restrict any use of the information to criminally investigate or prosecute any alcohol or drug abuse patient.[facility]imaIn the event this information is protected by the Federal Confidentiality of Alcohol and Drug Abuse Patient Records regulations: The Federal rules restrict any use of the information to criminally investigate or prosecute any alcohol or drug abuse patient.[facility]imaIn the event this information is protected by the Federal Confidentiality of Alcohol and Drug Abuse Patient Records regulations: The Federal rules restrict any use of the information to criminally investigate or prosecute any alcohol or drug abuse patient.[facility]imaIn the event this information is protected by the Federal Confidentiality of Alcohol and Drug Abuse Patient Records regulations: The Federal rules restrict any use of the information to criminally investigate or prosecute any alcohol or drug abuse patient.[facility]imaIn the event this information is protected by the Federal Confidentiality of Alcohol and Drug Abuse Patient Records regulations: The Federal rules restrict any use of the information to criminally investigate or prosecute any alcohol or drug abuse patient.[facility]imaIn the event this information is protected by the Federal Confidentiality of Alcohol and Drug Abuse Patient Records regulations: The Federal rules restrict any use of the information to criminally investigate or prosecute any alcohol or drug abuse patient.[facility] Care Teams (unrecognized sec tion and content) Tester Armature Or Fields Relationship Specialty Start Date End Date Isaias Bradley MD [address] [facility] [place] [address] PCP - General Family Practice 07/14/14 Tester Armature Or Fields Relationship Specialty Start Date End Date Isaias Bradley MD [address] [facility] [place] [address] PCP - General Family Practice 07/14/14 Tester Armature Or Fields Relationship Specialty Start Date End Date Isaias Bradley MD [address] [facility] [place] [address] PCP - General Family Practice 07/14/14 Tester Armature Or Fields Relationship Specialty Start Date End Date Isaias Bradley MD [address] [facility] [place] [address] PCP - General Family Practice 07/14/14 Tester Armature Or Fields Relationship Specialty Start Date End Date Isaias Bradley MD [address] [facility] [place] [address] PCP - General Family Practice 07/14/14 Tester Armature Or Fields Relationship Specialty Start Date End Date Isaias Bradley MD [address] [facility] [place] [address] PCP - General Family Practice 07/14/14 Tester Armature Or Fields Relationship Specialty Start Date End Date Isaias Bradley MD [address] [facility] [place] [address] PCP - General Family Practice 07/14/14 Tester Armature Or Fields Relationship Specialty Start Date End Date Isaias Bradley MD [address] [facility] [place] [address] PCP - General Family Practice 07/14/14 Tester Armature Or Fields Relationship Specialty Start Date End Date Isaias Bradley MD [address] [facility] [place] [address] PCP - General Family Practice 07/14/14 Tester Armature Or Fields Relationship Specialty Start Date End Date Isaias Bradley MD [address] [facility] [place] [address] PCP - General Family Practice 07/14/14 Tester Armature Or Fields Relationship Specialty Start Date End Date Isaias Bradley MD [address] [facility] [place] [address] PCP - General Family Practice 07/14/14 Tester Armature Or Fields Relationship Specialty Start Date End Date Isaias Bradley MD [address] [facility] [place] [address] PCP - General Family Practice 07/14/14 Tester Armature Or Fields Relationship Specialty Start Date End Date Isaias Bradley MD [address] [facility] [place] [address] PCP - General Family Medicine 07/14/14 Tester Armature Or Fields Relationship Specialty Start Date End Date Isaias Bradley MD [address] [facility] [place] [address] PCP - General Family Medicine 07/14/14 Tester Armature Or Fields Relationship Specialty Start Date End Date Isaias Bradley MD [address] [facility] [place] [address] PCP - General Family Medicine 07/14/14 Tester Armature Or Fields Relationship Specialty Start Date End Date Isaias Bradley MD [address] [facility] [place] [address] PCP - General Family Medicine 07/14/14 Tester Armature Or Fields Relationship Specialty Start Date End Date Isaias Bradley MD [address] [facility] [place] [address] PCP - General Family Medicine 07/14/14 Tester Armature Or Fields Relationship Specialty Start Date End Date Isaias Bradley MD [address] [facility] [place] [address] PCP - General Family Medicine 07/14/14 Tester Armature Or Fields Relationship Specialty Start Date End Date Isaias Bradley MD [address] [facility] [place] [address] PCP - General Family Medicine 07/14/14 Tester Armature Or Fields Relationship Specialty Start Date End Date Isaias Bradley MD [address] [facility] [place] [address] PCP - General Family Medicine 07/14/14 Tester Armature Or Fields Relationship Specialty Start Date End Date Isaias Bradley MD [address] [facility] [place] [address] PCP - General Family Medicine 07/14/14 Tester Armature Or Fields Relationship Specialty Start Date End Date Isaias Bradley MD [address] [facility] [place] [address] PCP - General Family Medicine 07/14/14 Tester Armature Or Fields Relationship Specialty Start Date End Date Isaias Bradley MD [address] [facility] [place] [address] PCP - General Family Medicine 07/14/14 Tester Armature Or Fields Relationship Specialty Start Date End Date Isaias Bradley MD [address] [facility] [place] [address] PCP - General Family Medicine 07/14/14 Tester Armature Or Fields Relationship Specialty Start Date End Date Isaias Bradley MD [address] [facility] [place] [address] PCP - General Family Medicine 07/14/14 Tester Armature Or Fields Relationship Specialty Start Date End Date Isaias Bradley MD [address] [facility] [place] [address] PCP - General Family Medicine 07/14/14 Tester Armature Or Fields Relationship Specialty Start Date End Date Isaias Bradley MD [address] [facility] [place] [address] PCP - General Family Medicine 07/14/14 Tester Armature Or Fields Relationship Specialty Start Date End Date Isaias Bradley MD [address] [facility] [place] [address] PCP - General Family Medicine 07/14/14 Tester Armature Or Fields Relationship Specialty Start Date End Date Isaias Bradley MD [address] [facility] [place] [address] PCP - General Family Medicine 07/14/14 Tester Armature Or Fields Relationship Specialty Start Date End Date Isaias Bradley MD [address] [facility] [place] [address] PCP - General Family Medicine 07/14/14 Tester Armature Or Fields Relationship Specialty Start Date End Date Isaias Bradley MD [address] [place] [address] PCP - General Family Medicine 07/14/14 Tester Armature Or Fields Relationship Specialty Start Date End Date Isaias Bradley MD [address] [place] [address] PCP - General Family Medicine 07/14/14 Tester Armature Or Fields Relationship Specialty Start Date End Date Isaias Bradley MD [address] [place] [address] PCP - General Family Medicine 07/14/14 Esa Cordero PA-C [address] [place] [address] Referring Internal Medicine 11/22/22 Tester Armature Or Fields Relationship Specialty Start Date End Date Isaias Bradley MD [address] [place] [address] PCP - General Family Medicine 07/14/14 Esa Cordero PA-C [address] [place] [address] Referring Internal Medicine 11/22/22 Isaias Bradley MD [address] [place] [address] Home Care Provider Internal Medicine 11/23/22 Stanton Serrano, [address] [place] [address] Poultice Machine Operator Post Acute Care 11/23/22 Tester Armature Or Fields Relationship Specialty Start Date End Date Isaias Bradley MD [address] [place] [address] PCP - General Family Medicine 07/14/14 Esa Cordero PA-C [address] [place] [address] Referring Internal Medicine 11/22/22 Isaias Bradley MD [address] [place] [address] Home Care Provider Internal Medicine 11/23/22 Stanton Serrano RN [address] [place] [address] Poultice Machine Operator Post Acute Care 11/23/22 Tester Armature Or Fields Relationship Specialty Start Date End Date Isaias Bradley MD [address] [place] [address] PCP - General Family Medicine 07/14/14 Esa Cordero PA-C [address] [place] [address] Referring Internal Medicine 11/22/22 Isaias Bradley MD [address] [place] [address] Home Care Provider Internal Medicine 11/23/22 Stanton Serrano RN [address] [place] [address] Poultice Machine Operator Post Acute Care 11/23/22 Tester Armature Or Fields Relationship Specialty Start Date End Date Isaias Bradley MD [address] [place] [address] PCP - General Family Medicine 07/14/14 Esa Cordero PA-C [address] [place] [address] Referring Internal Medicine 11/22/22 Isaias Bradley MD [address] [place] [address] Home Care Provider Internal Medicine 11/23/22 Stanton Serrano, RN [address] [place] [address] Poultice Machine Operator Post Acute Care 11/23/22 Tester Armature Or Fields Relationship Specialty Start Date End Date Isaias Bradley MD [address] [place] [address] PCP - General Family Medicine 07/14/14 Esa Cordero PA-C [address] [place] [address] Referring Internal Medicine 11/22/22 Isaias Bradley MD [address] [place] [address] Home Care Provider Internal Medicine 11/23/22 Stanton Serrnao, RN [address] [place] [address] Poultice Machine Operator Post Acute Care 11/23/22 Tester Armature Or [employer] Relationship Specialty Start Date End Date Isaias Bradley MD [address] [place] [address] PCP - General Family Medicine 07/14/14 Esa Cordero PA-C [address] [place] [address] Referring Internal Medicine 11/22/22 Isaias Bradley MD [address] [place] [address] Home Care Provider Internal Medicine 11/23/22 Stanton Serrano, RN [address] [place] [address] Poultice Machine Operator Post Acute Care 11/23/22 Tester Armature Or Fields Relationship Specialty Start Date End Date Isaias Bradley MD [address] [facility] [place] [address] PCP - General Family Medicine 07/14/14 Esa Cordero PA-C [address] [place] [address] Referring Internal Medicine 11/22/22 Isaias Bradley MD [address] [place] [address] Home Care Provider Internal Medicine 11/23/22 Stanton Serrano RN [address] [place] [address] Poultice Machine Operator Post Acute Care 11/23/22 Tester Armature Or [employer] Relationship Specialty Start Date End Date Isaias Bradley MD [address] [place] [address] PCP - General Family Medicine 07/14/14 Esa Cordero PA-C [address] [place] [address] Referring Internal Medicine 11/22/22 Isaias Bradley MD [address] [place] [address] Home Care Provider Internal Medicine 11/23/22 Stanton Serrano RN [address] [place] [address] Poultice Machine Operator Post Acute Care 11/23/22 Tester Armature [employer] Relationship Specialty Start Date End Date Isaias Bradley MD [address] [place] [address] PCP - General Family Medicine 07/14/14 Esa Cordero PA-C [address] [place] [address] Referring Internal Medicine 11/22/22 Isaias Bradley MD [address] [place] [address] Home Care Provider Internal Medicine 11/23/22 Stanton Serrano, SKIP [address] [place] [address] Poultice Machine Operator Post Acute Care 11/23/22 Tester Armature [employer] Relationship Specialty Start Date End Date Isaias Bradley MD [address] [place] [address] PCP - General Family Medicine 07/14/14 Esa Cordero PA-C [address] [place] [address] Referring Internal Medicine 11/22/22 Isaias Bradley MD [address] [place] [address] Home Care Provider Internal Medicine 11/23/22 Stanton Serrano RN [address] [place] [address] Poultice Machine Operator Post Acute Care 11/23/22 Tester [employer] Relationship Specialty Start Date End Date Isaias Bradley MD [address] [place] [address] PCP - General Family Medicine 07/14/14 Esa Cordero PA-C [address] [place] [address] Referring Internal Medicine 11/22/22 Isaias Bradley MD [address] [place] [address] Home Care Provider Internal Medicine 11/23/22 Stanton Serrano RN [address] [place] [address] Poultice Machine Operator Post Acute Care 11/23/22 Tester [employer] Relationship Specialty Start Date End Date Isaias Bradley MD [address] [place] [address] PCP - General Family Medicine 07/14/14 Esa Cordero PA-C [address] [place] [address] Referring Internal Medicine 11/22/22 Isaias Bradley MD [address] [place] [address] Home Care Provider Internal Medicine 11/23/22 Stanton Serrano, SKIP [address] [place] [address] Poultice Machine Operator Post Acute Care 11/23/22 Tester Armature [employer] Relationship Specialty Start Date End Date Isaias Bradley MD [address] [place] [address] PCP - General Family Medicine 07/14/14 Esa Cordero PA-C [address] [place] [address] Referring Internal Medicine 11/22/22 Isaias Bradley MD [address] [place] [address] Home Care Provider Internal Medicine 11/23/22 Stanton Serrano, SKIP [address] [place] [address] Poultice Machine Operator Post Acute Care 11/23/22 Tester Armature [employer] Relationship Specialty Start Date End Date Isaias Bradley MD [address] [place] [address] PCP - General Family Medicine 07/14/14 Esa Cordero PA-C [address] [place] [address] Referring Internal Medicine 11/22/22 Isaias Bradley MD [address] [place] [address] Home Care Provider Internal Medicine 11/23/22 Tester Armature [employer] Relationship Specialty Start Date End Date Isaias Bradley MD [address] [place] [address] PCP - General Family Medicine 07/14/14 Esa Cordero PA-C [address] [place] [address] Referring Internal Medicine 11/22/22 Isaias Bradley MD [address] [place] [address] Home Care Provider Internal Medicine 11/23/22 Tester Armature [employer] Relationship Specialty Start Date End Date Isaias Bradley MD [address] [place] [address] PCP - General Family Medicine 07/14/14 Esa Cordero PA-C [address] [place] [address] Referring Internal Medicine 11/22/22 Isaias Bradley MD [address] [place] [address] Home Care Provider Internal Medicine 11/23/22 Tester Armature Or Fields Relationship Specialty Start Date End Date Isaias Bradley MD [address] [place] [address] PCP - General Family Medicine 07/14/14 Esa Cordero PA-C [address] [place] [address] Referring Internal Medicine 11/22/22 Isaias Bradley MD [address] [place] [address] Home Care Provider Internal Medicine 11/23/22 Tester Armature [employer] Relationship Specialty Start Date End Date Isaias Bradley MD [address] [place] [address] PCP - General Family Medicine 07/14/14 Esa Cordero PA-C [address] [place] [address] Referring Internal Medicine 11/22/22 Isaias Bradley MD [address] [place] [address] Home Care Provider Internal Medicine 11/23/22 Tester [employer]ature [employer] Relationship Specialty Start Date End Date Isaias Bradley MD [address] [place] [address] PCP - General Family Medicine 07/14/14 Esa Cordero PA-C [address] [place] [address] Referring Internal Medicine 11/22/22 Isaias Bradley MD [address] [place] [address] Home Care Provider Internal Medicine 11/23/22 Tester [employer]ature [employer] Relationship Specialty Start Date End Date Isaias Bradley MD [address] [place] [address] PCP - General Family Medicine 07/14/14 Esa Cordero PA-C [address] [place] [address] Referring Internal Medicine 11/22/22 Isaias Bradley MD [address] [place] [address] Home Care Provider Internal Medicine 11/23/22 Tester Armature [employer] Relationship Specialty Start Date End Date Isaias Bradley MD [address] [place] [address] PCP - General Family Medicine 07/14/14 Esa Cordero PA-C [address] [place] [address] Referring Internal Medicine 11/22/22 Isaias Bradley MD [address] [place] [address] Home Care Provider Internal Medicine 11/23/22 Tester Armature Or Fields Relationship Specialty Start Date End Date Isaias Bradley MD [address] [place] [address] PCP - General Family Medicine 07/14/14 Esa Cordero PA-C [address] [place] [address] Referring Internal Medicine 11/22/22 Isaias Bradley MD [address] [place] [address] Home Care Provider Internal Medicine 11/23/22 Tester Armature Or [employer] Relationship Specialty Start Date End Date Isaias Bradley MD [address] [place] [address] PCP - General Family Medicine 07/14/14 Esa Cordero PA-C [address] [place] [address] Referring Internal Medicine 11/22/22 Isaias Bradley MD [address] [place] [address] Home Care Provider Internal Medicine 11/23/22 Team Status: Active Member Role Status Dates Dr. Isaias Bradley MD Family Provider Active Dr. Isaias Bradley MD Primary Care Provider Active Team Status: Inactive Member Role Status Dates Dr. Isaias Bradley MD Primary Care Provider Active Dr. Migel Osei MD Attending Provider, Emergency Pr ovider Active Team Status: Inactive Member Role Status Dates Dr. Isaias Bradley MD Primary Care Provider Active Dr. Manuel Corrales DO Attending Provider, Emergency Provide r Active Team Status: Inactive Member Role Status Dates Dr. Isaias Bradley MD Primary Care Provider Active Dr. Piotr Gaary MD Attending Provider, Emergency Provider Active Team Status: Inactive Member Role Status Dates Dr. Isaias Bradley MD Primary Care Provider Active Dr. Elfego Anna DO Emergency Provider Active T[employer] Relationship Specialty Start Date End Date Isaias Bradley MD [address] [place] [address] PCP - General Family Medicine 07/14/14 Esa Cordero PA-C [address] [place] [address] Referring Internal Medicine 11/22/22 Isaias Bradley MD [address] [place] [address] Home Care Provider Internal Medicine 11/23/22 Tester Armature [employer] Relationship Specialty Start Date End Date Isaias Bradley MD [address] [place] [address] PCP - General Family Medicine 07/14/14 Esa Cordero PA-C [address] [place] [address] Referring Internal Medicine 11/22/22 Isaias Bradley MD [address] [place] [address] Home Care Provider Internal Medicine 11/23/22 Amber Shen, SKIP [address] [place] [address] Primary Care Personal Carer Internal Medicine 02/08/23 03/10/23 Team Status: Active Member Role Status Dates Dr. Isaias Bradley MD Primary Care Provider Active Dr. Elfego Anna DO Emergency Provider Active Dr. Kev Caldwell MD Attending Provider Active Team Status: Inactive Member Role Status Dates Dr. Isaias Bradley MD Primary Care Provider Active Dr. Elfego Anna DO Attending Provider, Emergency Gema fiore Active Team Status: Inactive Member Role Status Dates Dr. Isaias Bradley MD Primary Care Provider Active Dr. Charleen Guaman MD Emergency Provider Active Team Status: Inactive Member Role Status Dates Dr. Isaias Bradley MD Primary Care Provider Active Dr. Manuel Corrales DO Emergency Provider Active T[employer] Relationship Specialty Start Date End Date Isaias Bradley MD [address] [place] [address] PCP - General Family Medicine 07/14/14 Esa Cordero PA-C [address] [place] [address] Referring Internal Medicine 11/22/22 Isaias Bradley MD [address] [place] [address] Home Care Provider Internal Medicine 11/23/22 Amber Shen RN [address] [place], [place] [id number] [phone] Primary Care Personal Carer Internal Medicine 02/08/23 03/10/23 Tester [employer] Relationship Specialty Start Date End Date Isaias Bradley MD [address] [place] [address] PCP - General Family Medicine 07/14/14 sEa Cordero PA-C [address] [place] [address] Referring Internal Medicine 11/22/22 Isaias Bradley MD [address] [place] [address] Home Care Provider Internal Medicine 11/23/22 Amber Shen RN [address] [place], [place] [id number] [phone] Primary Care Personal Carer Internal Medicine 02/08/23 03/10/23 Tester Armature [employer] Relationship Specialty Start Date End Date Isaias Bradley MD [address] [place], [place] 606141 PCP - General Family Medicine 07/14/14 Esa Cordero PA-C [address] [place] [address] Referring Internal Medicine 11/22/22 Isaias Bradley MD [address] [place], [place] 738271 Home Care Provider Internal Medicine 11/23/22 Amber Shen RN [address] [place] [address] Primary Care Personal Carer Internal Medicine 02/08/23 03/10/23 Team Status: Active Member Role Status Dates Dr. Isaias Bradley MD Primary Care Provider Active Dr. Elfego Anna DO Referring Provider, Emergency Gema fiore Active Dr. Kev Caldwell MD Attending Provider Active Team Status: Inactive Member Role Status Dates Dr. Isaias Bradley MD Primary Care Provider Active Dr. Charleen Guaman MD Attending Provider, Emergency Provider Active Team Status: Inactive Member Role Status Dates Dr. Isaias Bradley MD Primary Care Provider Active Dr. Herberth Spear DO Emergency Provider Active Tester [employer] Relationship Specialty Start Date End Date Isaias Bradley MD [address] [place], [place] [address]01 PCP - General Family Medicine 07/14/14 Esa Cordero PA-C [address] [place] [address] Referring Internal Medicine 11/22/22 Isaias Bradley MD [address] [place], [place] 3088[address] Home Care Provider Internal Medicine 11/23/22 Amber Shen RN [address] [place] [address] Primary Care Personal Carer Internal Medicine 02/08/23 03/10/23 Tester Armature [employer] Relationship Specialty Start Date End Date Isaias Bradley MD [address] [place] [address] PCP - General Family Medicine 07/14/14 Esa Cordero PA-C [address] [place] [address] Referring Internal Medicine 11/22/22 Isaias Bradley MD [address] [place] [address] Home Care Provider Internal Medicine 11/23/22 Amber Shen, SKIP [address] [place], [place] [phone] Primary Care Personal Carer Internal Medicine 02/08/23 03/10/23 Tester Armature Or Fields Relationship Specialty Start Date End Date Isaias Bradley MD [address] [place] [address] PCP - General Family Medicine 07/14/14 Esa Cordero PA-C [address] [place] [address] Referring Internal Medicine 11/22/22 Isaias Bradley MD [address] [place] [address] Home Care Provider Internal Medicine 11/23/22 Tester Armature Or [employer] Relationship Specialty Start Date End Date Isaias Bradley MD [address] [place] [address] PCP - General Family Medicine 07/14/14 Esa Cordero PA-C [address] [place] [address] Referring Internal Medicine 11/22/22 Isaias Bradley MD [address] [place] [address] Home Care Provider Internal Medicine 11/23/22 Tester Armature Or Fields Relationship Specialty Start Date End Date Isaias Bradley MD [address] [place] [address] PCP - General Family Medicine 07/14/14 Esa Cordero PA-C [address] [place] [address] Referring Internal Medicine 11/22/22 Isaias Bradley MD [address] [place] [address] Home Care Provider Internal Medicine 11/23/22 Tester Armature Or Fields Relationship Specialty Start Date End Date Isaias Bradley MD [address] [place] [address] PCP - General Family Medicine 07/14/14 Esa Cordero PA-C [address] [place] [address] Referring Internal Medicine 11/22/22 Isaias Bradley MD [address] [place] [address] Home Care Provider Internal Medicine 11/23/22 Tester Armature Or Fields Relationship Specialty Start Date End Date Isaias Bradley MD [address] [place] [address] PCP - General Family Medicine 07/14/14 Esa Cordero PA-C [address] [place] [address] Referring Internal Medicine 11/22/22 Isaias Bradley MD [address] [place] [address] Home Care Provider Internal Medicine 11/23/22 Tester Armature Or Fields Relationship Specialty Start Date End Date Isaias Bradley MD [address] [place], [place] 444691 PCP - General Family Medicine 07/14/14 Esa Cordero PA-C [address] [place] [address] Referring Internal Medicine 11/22/22 Isaias Bradley MD [address] [place] [address] Home Care Provider Internal Medicine 11/23/22 Mode Spence, director of radio services Personal Carer 05/13/23 06/12/23 Tester [employer] Relationship Specialty Start Date End Date Isaias Bradley MD [address] [place] [address] PCP - General Family Medicine 07/14/14 Esa Cordero PA-C [address] [place] [address] Referring Internal Medicine 11/22/22 Isaias Bradley MD [address] [place], [place] 592261 Home Care Provider Internal Medicine 11/23/22 Mode Spence, director of radio services Personal Carer 05/13/23 06/12/23 Tester Armature [employer] Fields Relationship Specialty Start Date End Date Isaias Bradley MD [address] [place], [place] 365421 PCP - General Family Medicine 07/14/14 Esa Cordero PA-C [address] [place] [address] Referring Internal Medicine 11/22/22 Isaias Bradley MD [address] [place], [place] 914161 Home Care Provider Internal Medicine 11/23/22 Mode Spence director of radio services Personal Carer 05/13/23 06/12/23 Tester Armature Or Fields Relationship Specialty Start Date End Date Isaias Bradley MD [address] [place], [place] 141821 PCP - General Family Medicine 07/14/14 Esa Cordero PA-C [address] [place] [address] Referring Internal Medicine 11/22/22 Isaias Bradley MD [address] [place] [address] Home Care Provider Internal Medicine 11/23/22 Mode Spence RN Primary Care Personal Carer 05/13/23 06/12/23 Tester Armature Or Fields Relationship Specialty Start Date End Date Isaias Bradley MD [address] [place], [place] 499821 PCP - General Family Medicine 07/14/14 Esa Cordero PA-C [address] [place] [address] Referring Internal Medicine 11/22/22 Isaias Bradley MD [address] [place], [place] 678451 Home Care Provider Internal Medicine 11/23/22 Mode Spence director of radio services Personal Carer 05/13/23 06/12/23 Team Status: Inactive Member Role Status Dates Dr. Isaias Bradley MD Primary Care Provider Active Dr. Herberth Spear DO Attending Provider, Emergency Pro vider Active Team Status: Inactive Member Role Status Dates Dr. Isaias Bradley MD Primary Care Provider Active Dr. Ryan Lopez MD Emergency Provider Active Tester [employer] Relationship Specialty Start Date End Date Isaias Bradley MD [address] [place] [address] PCP - General Family Medicine 07/14/14 Esa Cordero PA-C [address] [place] [address] Referring Internal Medicine 11/22/22 Isaias Bradley MD [address] [place] [address] Home Care Provider Internal Medicine 11/23/22 Tester Armature Or Fields Relationship Specialty Start Date End Date Isaias Bradley MD [address] [place] [address] PCP - General Family Medicine 07/14/14 Esa Cordero PA-C [address] [place] [address] Referring Internal Medicine 11/22/22 Isaias Bradley MD [address] [place] [address] Home Care Provider Internal Medicine 11/23/22 Tester Armature Or Fields Relationship Specialty Start Date End Date Isaias Bradley MD [address] [place] [address] PCP - General Family Medicine 07/14/14 Esa Cordero PA-C [address] [place] [address] Referring Internal Medicine 11/22/22 Isaias Bradley MD [address] [place], [place] 094181 Home Care Provider Internal Medicine 11/23/22 Tester Armature Or Fields Relationship Specialty Start Date End Date Isaias Bradley MD [address] [place], [place] 654231 PCP - General Family Medicine 07/14/14 Esa Cordero PA-C [address] [place], [place] 19349[address] Referring Internal Medicine 11/22/22 Isaias Bradley MD [address] [place] [address] Home Care Provider Internal Medicine 11/23/22 Tester Armature Or Fields Relationship Specialty Start Date End Date Isaias Bradley MD [address] [place], [place] 884401 PCP - General Family Medicine 07/14/14 Esa Cordero PA-C [address] [place] [address] Referring Internal Medicine 11/22/22 Isaias Bradley MD [address] [place], [place] 745731 Home Care Provider Internal Medicine 11/23/22 Tester Armature Or Fields Relationship Specialty Start Date End Date Isaias Bradley MD [address] [place], [place] 458121 PCP - General Family Medicine 07/14/14 Esa Cordero PA-C [address] [place] [address] Referring Internal Medicine 11/22/22 Isaias Bradley MD [address] [place] [address] Home Care Provider Internal Medicine 11/23/22 Tester Armature Or Fields Relationship Specialty Start Date End Date Isaias Bradley MD [address] [place], [place] 791231 PCP - General Family Medicine 07/14/14 Esa Cordero PA-C [address] [place], [place] [address]56 Referring Internal Medicine 11/22/22 Isaias Bradley MD [address] [place], [place] 442161 Home Care Provider Internal Medicine 11/23/22 Team Status: Inactive Member Role Status Dates Dr. Isaias Bradley MD Primary Care Provider Active Dr. Ryan Lopez MD Attending Provider, Emergency Pro vider Active Team Status: Inactive Member Role Status Dates Dr. Isaias Bradley MD Primary Care Provider Active Dr. Roby Crowley DO Emergency Provider Active Tester [employer] Relationship Specialty Start Date End Date Isaias Bradley MD [address] [place], [place] [address]22731 PCP - General Family Medicine 07/14/14 Esa Cordero PA-C [address] [place], [place] 301[address] Referring Internal Medicine 11/22/22 Isaias Bradley MD [address] [place], [place] 630361 Home Care Provider Internal Medicine 11/23/22 Tester Armature Or Fields Relationship Specialty Start Date End Date Isaias Bradley MD [address] [place] [address] PCP - General Family Medicine 07/14/14 Esa Cordero PA-C [address] [place] [address] Referring Internal Medicine 11/22/22 Isaisa Bradley MD [address] [place] [address] Home Care Provider Internal Medicine 11/23/22 Tester Armature Or Fields Relationship Specialty Start Date End Date Isaias Bradley MD [address] [place] [address] PCP - General Family Medicine 07/14/14 Esa Cordero PA-C [address] [place], [place] [id number] Referring Internal Medicine 11/22/22 Isaias Bradley MD [address] [place] [address] Home Care Provider Internal Medicine 11/23/22 Tester Armature Or Fields Relationship Specialty Start Date End Date Isaias Bradley MD [address] [place], [place] 027541 PCP - General Family Medicine 07/14/14 Esa Cordero PA-C [address] [place], [place] [address]66[address] Referring Internal Medicine 11/22/22 Isaias Bradley MD [address] [place] [address] Home Care Provider Internal Medicine 11/23/22 Tester Armature Or Fields Relationship Specialty Start Date End Date Isaias Bradley MD [address] [place] [address] PCP - General Family Medicine 07/14/14 Tester Armature Or Fields Relationship Specialty Start Date End Date Isaias Bradley MD [address] [place], [place] 412341 PCP - General Family Medicine 07/14/14 Esa Cordero PA-C [address] [place], [place] 29685256 Referring Internal Medicine 11/22/22 Isaias Bradley MD [address] [place] [address] Home Care Provider Internal Medicine 11/23/22 Tester Armature Or Fields Relationship Specialty Start Date End Date Isaias Bradley MD [address] [place] [address] PCP - General Family Medicine 07/14/14 Esa Cordero PA-C [address] [place] [address] Referring Internal Medicine 11/22/22 Isaias Bradley MD [address] [place] [address] Home Care Provider Internal Medicine 11/23/22 Tester Armature Or Fields Relationship Specialty Start Date End Date Isaias Bradley MD [address] [place] [address] PCP - General Family Medicine 07/14/14 Esa Cordero PA-C [address] [place] [address] Referring Internal Medicine 11/22/22 Isaias Bradley MD [address] [place] [address] Home Care Provider Internal Medicine 11/23/22 Tester Armature Or Fields Relationship Specialty Start Date End Date Isaias Bradley MD [address] [place] [address] PCP - General Family Medicine 07/14/14 Esa Cordero PA-C [address] [place] [address] Referring Internal Medicine 11/22/22 Isaias Bradley MD [address] [place], [place] 967401 Home Care Provider Internal Medicine 11/23/22 Tester Armature Or Fields Relationship Specialty Start Date End Date Isaias Bradley MD [address] [place] [address] PCP - General Family Medicine 07/14/14 Esa Cordero PA-C [address] [place], [place] [id number] Referring Internal Medicine 11/22/22 Isaias Bradley MD [address] [place] [address] Home Care Provider Internal Medicine 11/23/22 Tester Armature Or Fields Relationship Specialty Start Date End Date Isaias Bradley MD [address] [place] [address] PCP - General Family Medicine 07/14/14 Esa Cordero PA-C [address] [place] [address] Referring Internal Medicine 11/22/22 Isaias Bradley MD [address] [place] [address] Home Care Provider Internal Medicine 11/23/22 Tester Armature Or Fields Relationship Specialty Start Date End Date Isaias Bradley MD [address] [place] [address] PCP - General Family Medicine 07/14/14 Esa Cordero PA-C [address] [place] [address] Referring Internal Medicine 11/22/22 Isaias Bradley MD [address] [place] [address] Home Care Provider Internal Medicine 11/23/22 Tester Armature Or Fields Relationship Specialty Start Date End Date Isaias Bradley MD [address] [place] [address] PCP - General Family Medicine 07/14/14 Esa Cordero PA-C [address] [place] [address] Referring Internal Medicine 11/22/22 Iasias Bradley MD [address] [place], [place] 771151 Home Care Provider Internal Medicine 11/23/22 Tester Armature Or Fields Relationship Specialty Start Date End Date Isaais Bradley MD [address] [place] [address] PCP - General Family Medicine 07/14/14 Esa Cordero PA-C [address] [place] [address] Referring Internal Medicine 11/22/22 Isaias Bradley MD [address] [place] [address] Home Care Provider Internal Medicine 11/23/22 Tester Armature Or Fields Relationship Specialty Start Date End Date Isaias Bradley MD [address] [place] [address] PCP - General Family Medicine 07/14/14 Esa Cordero PA-C [address] [place], [place] [id number] Referring Internal Medicine 11/22/22 Isaias Bradley MD [address] [place] [address] Home Care Provider Internal Medicine 11/23/22 Tester Armature Or Fields Relationship Specialty Start Date End Date Isaias Bradley MD [address] [place], [place] 097671 PCP - General Family Medicine 07/14/14 Esa Cordero PA-C [address] [place], [place] [id number] Referring Internal Medicine 11/22/22 Isaias Bradley MD [address] [place] [address] Home Care Provider Internal Medicine 11/23/22 Tester Armature Or Fields Relationship Specialty Start Date End Date Isaias Bradley MD [address] [place] [address] PCP - General Family Medicine 07/14/14 Esa Cordero PA-C [address] [place], [place] [id number] Referring Internal Medicine 11/22/22 Isaias Bradley MD [address] [place] [address] Home Care Provider Internal Medicine 11/23/22 Tester Armature Or Fields Relationship Specialty Start Date End Date Isaias Bradley MD [address] [place] [address] PCP - General Family Medicine 07/14/14 Esa Cordero PA-C [address] [place] [address] Referring Internal Medicine 11/22/22 Isaias Bradley MD [address] [place] [address] Home Care Provider Internal Medicine 11/23/22 Tester Armature Or Fields Relationship Specialty Start Date End Date Isaias Bradley MD [address] [place] [address] PCP - General Family Medicine 07/14/14 Esa Cordero PA-C [address] [place] [address] Referring Internal Medicine 11/22/22 Isaias Bradley MD [address] [place], [place] 609761 Home Care Provider Internal Medicine 11/23/22 Tester Armature Or Fields Relationship Specialty Start Date End Date Isaias Bradley MD [address] [place], [place] 468361 PCP - General Family Medicine 07/14/14 Esa Cordero PA-C [address] [place], [place] [id number] Referring Internal Medicine 11/22/22 Isaias Bradley MD [address] [place] [address] Home Care Provider Internal Medicine 11/23/22 Tester Armature Or Fields Relationship Specialty Start Date End Date Isaias Bradley MD [address] [place], [place] [address]48171 PCP - General Family Medicine 07/14/14 Esa Cordero PA-C [address] [place] [address] Referring Internal Medicine 11/22/22 Isaias Bradley MD [address] [place], [place] 414581 Home Care Provider Internal Medicine 11/23/22 Tester Armature Or Fields Relationship Specialty Start Date End Date Isaias Bradley MD [address] [place], [place] [id number] PCP - General Family Medicine 07/14/14 Esa Cordero PA-C [address] [place] [address] Referring Internal Medicine 11/22/22 Isaias Bradley MD [address] [place] [address] Home Care Provider Internal Medicine 11/23/22 Tester Armature Or Fields Relationship Specialty Start Date End Date Isaias Bradley MD [address] [place] [address] PCP - General Family Medicine 07/14/14 Esa Cordero PA-C [address] [place] [address] Referring Internal Medicine 11/22/22 Isaias Bradley MD [address] [place] [address] Home Care Provider Internal Medicine 11/23/22 Tester Armature Or Fields Relationship Specialty Start Date End Date Isaias Bradley MD [address] [place] [address] PCP - General Family Medicine 07/14/14 Esa Cordero PA-C [address] [place] [address] Referring Internal Medicine 11/22/22 Isaias Bradley MD [address] [place] [address] Home Care Provider Internal Medicine 11/23/22 Tester Armature Or Fields Relationship Specialty Start Date End Date Isaias Bradley MD [address] [place], [place] 220151 PCP - General Family Medicine 07/14/14 Esa Cordero PA-C [address] [place] [address] Referring Internal Medicine 11/22/22 Isaias Bradley MD [address] [place] [address] Home Care Provider Internal Medicine 11/23/22 Tester Armature Or Fields Relationship Specialty Start Date End Date Isaias Bradley MD [address] [place], [place] 348261 PCP - General Family Medicine 07/14/14 Esa Cordero PA-C [address] [place] [address] Referring Internal Medicine 11/22/22 Isaias Bradley MD [address] [place], [place] 121051 Home Care Provider Internal Medicine 11/23/22 Tester Armature Or Fields Relationship Specialty Start Date End Date Isaias Bradley MD [address] [place] [address] PCP - General Family Medicine 07/14/14 Tester Armature Or Fields Relationship Specialty Start Date End Date Isaias Bradley MD [address] [place], [place] 862941 PCP - General Family Medicine 07/14/14 Esa Cordero PA-C [address] [place], [place] [id number] Referring Internal Medicine 11/22/22 Isaias Bradley MD [address] [place] [address] Home Care Provider Internal Medicine 11/23/22 Tester Armature Or Fields Relationship Specialty Start Date End Date Isaias Bradley MD [address] [place] [address] PCP - General Family Medicine 07/14/14 Esa Cordero PA-C [address] [place], [place] [id number] Referring Internal Medicine 11/22/22 Isaias Bradley MD [address] [place] [address] Home Care Provider Internal Medicine 11/23/22 Tester Armature Or Fields Relationship Specialty Start Date End Date Isaias Bradley MD [address] [place] [address] PCP - General Family Medicine 07/14/14 Esa Cordero PA-C [address] [place] [address] Referring Internal Medicine 11/22/22 Isaias Bradley MD [address] [place] [address] Home Care Provider Internal Medicine 11/23/22 Abby Langford APRN.HEALTH CLUB MANAGER [address] [place] [address] Deburring Technician Family Medicine 09/30/24 Vida Thornton APRN.HEALTH CLUB MANAGER [address] [place], [place] [id number] Deburring Technician Family [facility] 09/30/24 Tester Armature Or Fields Relationship Specialty Start Date End Date Isaias Bradley MD [address] [place] [address] PCP - General Family Medicine 07/14/14 Esa Cordero PA-C [address] [place], [place] [id number] Referring Internal Medicine 11/22/22 Isaias Bradley MD [address] [place] [address] Home Care Provider Internal Medicine 11/23/22 Abby Langford APRN.HEALTH CLUB MANAGER [address] [place] [address] Deburring Technician Family [facility] 09/30/24 Vida Thornton APRN.HEALTH CLUB MANAGER [address] [place] [address] Deburring Technician Family [facility] 09/30/24 Tester Armature Or Fields Relationship Specialty Start Date End Date Isaias Bradley MD [address] [place] [address] PCP - General Family Medicine 07/14/14 Esa Cordero PA-C [address] [place], [place] [id number] Referring Internal Medicine 11/22/22 Isaias Bradley MD [address] [place] [address] Home Care Provider Internal Medicine 11/23/22 Abby Langford APRN.HEALTH CLUB MANAGER [address] [place] [address] Deburring Technician Family [facility] 09/30/24 Vida Thornton APRN.HEALTH CLUB MANAGER [address] [place] [address] Deburring Technician Family Medicine 09/30/24 Tester Armature Or Fields Relationship Specialty Start Date End Date Isaias Bradley MD [address] [place] [address] PCP - General Family Medicine 07/14/14 Esa Cordero PA-C [address] [place], [place] [id number] Referring Internal Medicine 11/22/22 Isaias Bradley MD [address] [place] [address] Home Care Provider Internal Medicine 11/23/22 Abby Langford APRN.HEALTH CLUB MANAGER [address] [place] [address] Deburring Technician Family Medicine 09/30/24 Vida Thornton FIELD RESEARCH ASSISTANT.HEALTH CLUB MANAGER [address] [place] [address] Deburring Technician Family Medicine 09/30/24 Tester Armature Or Fields Relationship Specialty Start Date End Date Isaias Bradley MD [address] [place] [address] PCP - General Family Medicine 07/14/14 Esa Cordero PA-C [address] [place], [place] [id number] Referring Internal Medicine 11/22/22 Isaias Bradley MD [address] [place], [place] 007811 Home Care Provider Internal Medicine 11/23/22 Abby Langford, CHRISTINE.HEALTH CLUB MANAGER [address] [place] [address] Deburring Technician Family Medicine 09/30/24 Vida Thornton FIELD RESEARCH ASSISTANT.HEALTH CLUB MANAGER [address] [place] [address] Deburring Technician Family [facility] 09/30/24 Tester Armature Or Fields Relationship Specialty Start Date End Date Isaias Bradley MD [address] [place] [address] PCP - General Family Medicine 07/14/14 Esa Cordero PA-C [address] [place] [address] Referring Internal Medicine 11/22/22 Isaias Bradley MD [address] [place] [address] Home Care Provider Internal Medicine 11/23/22 Abby Langford, FIELD RESEARCH ASSISTANT.HEALTH CLUB MANAGER [address] [place] [address] Deburring Technician Family Medicine 09/30/24 Vida Thornton FIELD RESEARCH ASSISTANT.HEALTH CLUB MANAGER [address] [place] [address] Deburring Technician Family Medicine 09/30/24 Tester Armature Or Fields Relationship Specialty Start Date End Date Isaias Bradley MD [address] [place] [address] PCP - General Family Medicine 07/14/14 Esa Cordero PA-C [address] [place] [address] Referring Internal Medicine 11/22/22 Isaias Bradley MD [address] [place] [address] Home Care Provider Internal Medicine 11/23/22 Abby Langford APRN.HEALTH CLUB MANAGER [address] [place] [address] Deburring Technician Family Medicine 09/30/24 Vida Thornton APRN.HEALTH CLUB MANAGER [address] [place] [address] Deburring Technician Family Medicine 09/30/24 Tester Armature Or Fields Relationship Specialty Start Date End Date Isaias Bradley MD [address] [place] [address] PCP - General Family Medicine 07/14/14 Esa Cordero PA-C [address] [place] [address] Referring Internal Medicine 11/22/22 Isaias Bradley MD [address] [place], [place] 220051 Home Care Provider Internal Medicine 11/23/22 Abby Langford APRN.HEALTH CLUB MANAGER [address] [place] [address] [facility]ly [facility] 09/30/24 Vida Thornton APRN.HEALTH CLUB MANAGER [address] [place], [place] 374331 Formerly [facility] 09/30/24 01/10/25 Tester Armature Or Fields Relationship Specialty Start Date End Date Isaias Bradley MD [address] [place], [place] 898811 PCP - General Family Medicine 07/14/14 Esa Cordero PA-C [address] [place] [address] [id number] Referring Internal Medicine 11/22/22 Isaias Bradley MD [address] [place], [place] 745101 Home Care Provider Internal Medicine 11/23/22 Abby Langford APRN.HEALTH CLUB MANAGER [address] [place], [place] [address]6861 Formerly [facility] 09/30/24 Vida Thornton APRN.HEALTH CLUB MANAGER [address] [place], [place] 138861 Formerly [facility] 09/30/24 Team Status: Active Member Role Status Dates Dr. Isaias Bradley MD Primary Care Provider Active Team Status: Inactive Member Role Status Dates Dr. Isaias Bradley MD Primary Care Provider Active Start: December 10, 2024 End: December 10, 2024 Dr. Elfego Anna DO Attending Provider Active Start: December 10, 2024 End: December 10, 2024 Dr. Elfego Anna DO Emergency Provider Active Start: December 10, 2024 End: December 10, 2024 Team Status: Active Member Role Status Dates Dr. Isaias Bradley MD Primary Care Provider Active Start: February 16, 2025 Dr. Agustín Noriega MD Referring Provider Active Sta rt: February 16, 2025 Dr. Agustín Noriega MD Emergency Provider Active Sta rt: February 16, 2025 Dr. Mary Wang MD Admit Provider Active Star t: February 16, 2025 Dr. Mary Wang MD Attending Provider Active Start: February 16, 2025 Tester Armature Or Fields Relationship Specialty Start Date End Date Isaias Bradley MD [address] [place], [place] 847271 PCP - General Family Medicine 07/14/14 Esa Cordero PA-C [address] [place], [place] [id number] Referring Internal Medicine 11/22/22 Isaias Bradley MD [address] [place] [address] Home Care Provider Internal Medicine 11/23/22 Abby Langford, CHRISTINE.HEALTH CLUB MANAGER [address] [place] [address] Deburring Technician Family Medicine 09/30/24 Vida Thornton, FIELD RESEARCH ASSISTANT.HEALTH CLUB MANAGER [address] [place] [address] Deburring Technician Family Medicine 09/30/24 Tester Armature Or Fields Relationship Specialty Start Date End Date Isaias Bradley MD [address] [place], [place] 098301 PCP - General Family Medicine 07/14/14 Esa Cordero PA-C [address] [place], [place] [id number] Referring Internal Medicine 11/22/22 Isaias Bradley MD [address] [facility] [place] [address] Home Care Provider Internal Medicine 11/23/22 Abby Langford APRN.HEALTH CLUB MANAGER [address] [place] [address] Deburring Technician Family Medicine 09/30/24 Vida Thornton APRN.HEALTH CLUB MANAGER [address] [facility] [place] [address] Deburring Technician Family Medicine 09/30/24 Tester Armature Or Fields Relationship Specialty Start Date End Date Isaias Bradley MD [address] [facility] [place] [address] PCP - General Family Medicine 07/14/14 Esa Cordero PA-C [address] [place] [address] Referring Internal Medicine 11/22/22 Isaias Bradley MD [address] [place] [address] Home Care Provider Internal Medicine 11/23/22 Abby Langford APRN.HEALTH CLUB MANAGER [address] [place] [address] Deburring Technician Family Medicine 09/30/24 Vida Thornton APRN.HEALTH CLUB MANAGER [address] [facility] [place] [address] Deburring Technician Family Medicine 09/30/24 Tester Armature Or Fields Relationship Specialty Start Date End Date Isaias Bradley MD [address] [facility] [place] [address] PCP - General Family Medicine 07/14/14 Esa Cordero PA-C [address] [place], [place] [phone] Referring Internal Medicine 11/22/22 Isaias Bradley MD [address] [place], [place] 348661 Home Care Provider Internal Medicine 11/23/22 Abby Langford APRN.HEALTH CLUB MANAGER [address] [place] [address] Deburring Technician Family [facility] 09/30/24 Vida Thornton APRN.HEALTH CLUB MANAGER [address] [place] [address] Deburring Technician Family Medicine 09/30/24 Tester Armature Or Fields Relationship Specialty Start Date End Date Isaias Bradley MD [address] [place] [address] PCP - General Family Medicine 07/14/14 Esa Cordero PA-C [address] [place] [address] Referring Internal Medicine 11/22/22 Isaias Bradley MD [address] [place], [place] 031191 Home Care Provider Internal Medicine 11/23/22 Abby Langford APRN.HEALTH CLUB MANAGER [address] [place] [address] Deburring Technician Family Medicine 09/30/24 Vida Thornton APRN.HEALTH CLUB MANAGER [address] [place] [address] Deburring Technician Family Medicine 09/30/24 Tester Armature Or Fields Relationship Specialty Start Date End Date Isaias Bradley MD [address] [place] [address] PCP - General Family Medicine 07/14/14 Esa Cordero PA-C [address] [place], [place] [id number] Referring Internal Medicine 11/22/22 Isaias Bradley MD [address] [place] [address] Home Care Provider Internal Medicine 11/23/22 Abby Langford APRN.HEALTH CLUB MANAGER [address] [place] [address] Deburring Technician Family Medicine 09/30/24 Vida Thornton APRN.HEALTH CLUB MANAGER [address] [place] [address] Deburring Technician Family Medicine 09/30/24 Tester Armature Or Fields Relationship Specialty Start Date End Date Isaias Bradley MD [address] [place] [address] PCP - General Family Medicine 07/14/14 Esa Cordero PA-C [address] [place] [address] Referring Internal Medicine 11/22/22 Isaias Bradley MD [address] [place] [address] Home Care Provider Internal Medicine 11/23/22 Abby Langford APRN.HEALTH CLUB MANAGER [address] [place], [place] [address]251 Formerly [facility] 09/30/24 Vida Thornton APRN.HEALTH CLUB MANAGER [address] [place], [place] [address]31 Formerly [facility] 09/30/24 Team Status: Active Member Role/Relationship Status Dates Dr. Isaias Bradley MD Primary Care Provider Active Team Status: Inactive Member Role/Relationship Status Dates Dr. Isaias Bradley MD Primary Care Provider Active Start: February 16, 2025 End: February 20, 2025 Dr. Agustín Noriega MD Referring Provider Active Sta rt: February 16, 2025 End: February 20, 2025 Dr. Agustín Noriega MD Emergency Provider Active Sta rt: February 16, 2025 End: February 20, 2025 Dr. Mary Wang MD Admit Provider Active Star t: February 16, 2025 End: February 20, 2025 Dr. Mary Wang MD Other Provider Active Star t: February 16, 2025 End: February 20, 2025 Dr. Robbin Hanks DO Attending Provider Active Start: February 16, 2025 End: February 20, 2025 Team Status: Active Member Role/Relationship Status Dates Dr. Isaias Bradley MD Primary Care Provider Active Start: February 16, 2025 End: February 16, 2025 Dr. Aneudy Reese MD Attending Provider Active S tart: February 16, 2025 End: February 16, 2025 Dr. Oliver Tripp DO Referring Provider Active Start: February 16, 2025 End: February 16, 2025 Team Status: Active Member Role/Relationship Status Dates Dr. Isaias Bradley MD Primary Care Provider Active Start: February 17, 2025 Dr. Agustín Noriega MD Emergency Provider Active Sta rt: February 17, 2025 Dr. Mary Wang MD Admit Provider Active Star t: February 17, 2025 Dr. Mary Wang MD Other Provider Active Star t: February 17, 2025 Dr. Robbin Hanks DO Attending Provider Active Start: February 17, 2025 Dr. Robbin Hanks DO Other Provider Active Start: February 17, 2025 Team Status: Active Member Role/Relationship Status Dates Dr. Isaias Bradley MD Primary Care Provider Active Start: February 18, 2025 Dr. Agustín Noriega MD Emergency Provider Active Sta rt: February 18, 2025 Dr. Mary Wang MD Admit Provider Active Star t: February 18, 2025 Dr. Mary Wang MD Other Provider Active Star t: February 18, 2025 Dr. Robbin Hanks DO Attending Provider Active Start: February 18, 2025 Dr. Robbin Hanks DO Other Provider Active Start: February 18, 2025 Team Status: Active Member Role/Relationship Status Dates Dr. Isaias Bradley MD Primary Care Provider Active Start: February 19, 2025 Dr. Agustín Noriega MD Emergency Provider Active Sta rt: February 19, 2025 Dr. Mary Wang MD Admit Provider Active Star t: February 19, 2025 Dr. Mary Wang MD Other Provider Active Star t: February 19, 2025 Dr. Robbin Hanks DO Attending Provider Active Start: February 19, 2025 Dr. Robbin Hanks DO Other Provider Active Start: February 19, 2025 Team Status: Active Member Role/Relationship Status Dates Dr. Isaias Bradley MD Primary Care Provider Active Start: February 20, 2025 Dr. Agustín Noriega MD Emergency Provider Active Sta rt: February 20, 2025 Dr. Mary Wang MD Admit Provider Active Star t: February 20, 2025 Dr. Mary Wang MD Other Provider Active Star t: February 20, 2025 Dr. Robbin Hanks DO Attending Provider Active Start: February 20, 2025 Dr. Robbin Hanks DO Other Provider Active Start: February 20, 2025 Team Status: Active Member Role/Relationship Status Dates Dr. Isaias Bradley MD Primary Care Provider Active Start: June 16, 2025 Dr. Terrance Tavera DO Emergency Provider Active Start: June 16, 2025 Dr. Mary Wang MD Admit Provider Active Star t: June 16, 2025 Dr. Mary Wang MD Attending Provider Active Start: June 16, 2025 Team Status: Active Member Role/Relationship Status Dates Dr. Isaias Bradley MD Primary Care Provider Active Start: February 17, 2025 Dr. Agustín Noriega MD Emergency Provider Active Sta rt: February 17, 2025 Dr. Mary Wang MD Admit Provider Active Star t: February 17, 2025 Dr. Mayr Wang MD Other Provider Active Star t: February 17, 2025 Dr. Robbin Hanks DO Attending Provider Active Start: February 17, 2025 Dr. Robbin Hanks DO Other Provider Active Start: February 17, 2025 Team Status: Active Member Role/Relationship Status Dates Dr. Isaias Bradley MD Primary Care Provider Active Start: February 18, 2025 Dr. Agustín Noriega MD Emergency Provider Active Sta rt: February 18, 2025 Dr. Mary Wang MD Admit Provider Active Star t: February 18, 2025 Dr. Mary Wang MD Other Provider Active Star t: February 18, 2025 Dr. Robbin Hanks DO Attending Provider Active Start: February 18, 2025 Dr. Robbin Hanks DO Other Provider Active Start: February 18, 2025 Team Status: Active Member Role/Relationship Status Dates Dr. Isaias Bradley MD Primary Care Provider Active Start: February 19, 2025 Dr. Agustín Noriega MD Emergency Provider Active Sta rt: February 19, 2025 Dr. Mary Wang MD Admit Provider Active Star t: February 19, 2025 Dr. Mary Wang MD Other Provider Active Star t: February 19, 2025 Dr. Robbin Hanks DO Attending Provider Active Start: February 19, 2025 Dr. Robbin Hanks DO Other Provider Active Start: February 19, 2025 Team Status: Active Member Role/Relationship Status Dates Dr. Isaias Bradley MD Primary Care Provider Active Start: February 20, 2025 Dr. Agustín Noriega MD Emergency Provider Active Sta rt: February 20, 2025 Dr. Mary Wang MD Admit Provider Active Star t: February 20, 2025 Dr. Mary Wang MD Other Provider Active Star t: February 20, 2025 Dr. Robbin Hanks DO Attending Provider Active Start: February 20, 2025 Dr. Robbin Hanks DO Other Provider Active Start: February 20, 2025 Team Status: Inactive Member Role/Relationship Status Dates Dr. Isaias Bradley MD Primary Care Provider Active Start: June 16, 2025 End: June 17, 2025 Dr. Terrance Tavera , DO Emergency Provider Active Start: June 16, 2025 End: June 17, 2025 Dr. Mary Wang MD Admit Provider Active Star t: June 16, 2025 End: June 17, 2025 Dr. Mary Wang MD Other Provider Active Star t: June 16, 2025 End: June 17, 2025 Dr. Mode Christianson MD Attending Provider Active Start: June 16, 2025 End: June 17, 2025 Team Status: Active Member Role/Relationship Status Dates Dr. Isaias Bradley MD Primary care physician Active Team Status: Inactive Member Role/Relationship Status Dates Dr. Isaias Bradley MD Primary care physician Active Start: June 16, 2025 End: June 17, 2025 Dr. Terrance Tavera , Emergency Departm ent Physician Active Start: June 16, 2025 End: June 17, 2025 Dr. Mary Wang MD Admitting physician Active Start: June 16, 2025 End: June 17, 2025 Dr. Mary Wang MD Nurse Practitioner Active Start: June 16, 2025 End: June 17, 2025 Dr. Mode Christianson MD Attending physician Active Start: June 16, 2025 End: June 17, 2025 Team Status: Active Member Role/Relationship Status Dates Dr. Isaias Bradley MD Primary care physician Active Start: June 17, 2025 Dr. Terrance Tavera , DO Emergency Departm ent Physician Active Start: June 17, 2025 Dr. Mary Wang MD Admitting physician Active Start: June 17, 2025 Dr. Mary Wang MD Nurse Practitioner Active Start: June 17, 2025 Dr. Mode Christianson MD Attending physician Active Start: June 17, 2025 Dr. Mode Christianson MD Nurse Practitioner Active Start: June 17, 2025 Team Status: Inactive Member Role/Relationship Status Dates Dr. Isaias Bradley MD Primary care physician Active Start: July 20, 2025 End: July 22, 2025 Dr. Herberth Spear , DO Emergency Departmen t Physician Active Start: July 20, 2025 End: July 22, 2025 Dr. Mary Wang MD Admitting physician Active Start: July 20, 2025 End: July 22, 2025 Dr. Mary Wang MD Nurse Practitioner Active Start: July 20, 2025 End: July 22, 2025 Dr. Mode Christianson MD Attending physician Active Start: June End: July 22, 2025 Team Status: Active Member Role/Relationship Status Dates Dr. Isaias Bradley MD Primary care physician Active Start: July 21, 2025 Dr. Herberth Spear DO Emergency Departmen t Physician Active Start: July 21, 2025 Dr. Mary Wang MD Admitting physician Active Start: July 21, 2025 Dr. Mary Wang MD Nurse Practitioner Active Start: July 21, 2025 Dr. Mode Christianson MD Attending physician Active Start: June Dr. Mode Christianson MD Nurse Practitioner Active Start: June Team Status: Active Member Role/Relationship Status Dates Dr. Isaias Bradley MD Primary care physician Active Start: July 22, 2025 Dr. [facility] Spear [facility] Active Start: July 22, 2025 Dr. Mary Wang MD Admitting physician Active Start: July 22, 2025 Dr. Mary Wang MD Nurse Practitioner Active Start: July 22, 2025 Dr. Mode Christianson MD Attending physician Active Start: June Dr. Mode Christianson MD Nurse Practitioner Active Start: June Scheduled Active and Recently Administ ered Medications (unrecognized section and content) Medication Order 07/03/2022 07/04/2022 07/05/2022 acarbose (PRECOSE) tablet 25 mg 25 mg, Oral, 3 TIMES DAILY WITH MEALS, First dose (after last modification) on Mon07/01/22 at 1700, Until Discontinued, Must be taken with 1st bite of food. 0854 (Given - Provider: Lori Olmstead RN)1308 (Given - Provider: Lori Olmstead, SKIP)1712 (Not Given - Provider: Lori Olmstead RN - Reason: Order Parameters not met - Comment: Must be taken with food, pt is currently NPO.) 0900 (Not Given - Provider: Selma Cortés RN - Reason: NPO)1306 (Not Given - Provider: Selma Cortés RN - Reason: NPO)1724 (Given - Provider: Selma Cortés RN) 0810 (Given - Provider: Selma Cortés RN)1212 (Given - Provider: Selma Cortés RN) busPIRone (BUSPAR) tablet 5 mg 5 mg, Oral, 3 TIMES DAILY, First dose (after last modification) on Mon07/01/22 at 2100, Until Discontinued 0855 (Given - Provider: Lori Olmstead RN)1259 (Given - Provider: Lori Olmstead RN)2050 (Given - Provider: Liv Last RN) 0941 (Hold - Provider: Selma Cortés RN - Reason: NPO)1306 (Given - Provider: Selma Cortés RN)2008 (Given - Provider: Liv Last RN) 0808 (Given - Provider: Selma Cortés RN)1315 (Given - Provider: Selma Cortés RN) Enoxaparin Sodium (LOVENOX) injection 40 mg(Linked Group 1) 40 mg, Subcutaneous, DAILY, First dose on Mon06/27/22 at 0900, Until Discontinued, , Indications: DVT/PE prophylaxis 0935 (Not Given - Provider: Lori Olmstead RN - Reason: Patient/family refused) 0908 (Not Given - Provider: Selma Cortés RN - Reason: Patient/family refused) 0820 (Not Given - Provider: Selma Cortés RN - Reason: Patient/family refused) FLUoxetine (PROZAC) oral solution 40 mg 40 mg, Oral, DAILY, First dose (after last modification) on Mon07/02/22 at 0900, Until Discontinued 0856 (Given - Provider: Lori Olmstead RN) 0941 (Hold - Provider: Selma Cortés RN - Reason: NPO)1043 (Given - Provider: Selma Cortés RN - Comment: pt was NPO without meds) 0809 (Given - Provider: Selma Cortés RN) gabapentin (NEURONTIN) capsule 100 mg 100 mg, Oral, 3 TIMES DAILY, First dose (after last modification) on Mon07/01/22 at 2100, Until Discontinued 0855 (Given - Provider: Lori Olmstead RN)1259 (Given - Provider: Lori Olmstead RN)2051 (Given - Provider: Liv Last RN) 09 (Hold - Provider: Selma Cortés RN - Reason: NPO)1306 (Given - Provider: Selma Cortés RN)2008 (Given - Provider: Liv Last RN) 08 (Given - Provider: Selma Cortés RN)1315 (Given - Provider: Selma Cortés RN) hydrocortisone (CORTEF) tablet 10 mg(Linked Group 2) 10 mg, Oral, CUSTOM FREQUENCY (2 times per day), First dose (after last modification) on Mon06/29/22 at 0800, Until Discontinued 0855 (Given - Provider: Lori Olmstead RN)1305 (Given - Provider: Lori Olmstead RN) 0900 (Hold - Provider: Selma Cortés RN - Reason: NPO)1306 (Given - Provider: Selma Cortés RN) 08 (Given - Provider: Selma Cortés RN)121 (Given - Provider: Selma Cortés RN) hydrocortisone (CORTEF) tablet 5 mg(Linked Group 2) 5 mg, Oral, DAILY AT BEDTIME, First dose (after last modification) on Mon06/29/22 at 2100, Until Discontinued 2050 (Given - Provider: Liv Last RN) 2008 (Given - Provider: Liv Last RN) HYDROmorphone (DILAUDID) injection 0.5 mg (COMPLETED) 0.5 mg, Intravenous, ONCE, 1 dose, On Mon07/04/22 at 0015 2341 (Given - Provider: Liv Last RN) hydroxychloroquine (PLAQUENIL) suspension 200 mg 200 mg, Oral, 2 TIMES DAILY, First dose (after last modification) on Mon07/01/22 at 1700, Until Discontinued 0858 (Given - Provider: Lori Olmstead RN)172 (Given - Provider: Lori Olmstead RN) 09 (Hold - Provider: Selma Cortés RN - Reason: NPO)1724 (Given - Provider: Selma Cortés RN) 0809 (Given - Provider: Selma Cortés RN) levothyroxine (SYNTHROID) tablet 137.5 mcg 137.5 mcg (rounded from 137 mcg), Oral, DAILY BEFORE BREAKFAST, First dose (after last modification) on 07/02/22 at 0600, Until Discontinued 0552 (Given - Provider: Charline Deleon RN) 0900 (Hold - Provider: Selma Cortés RN - Reason: NPO) 0526 (Given - Provider: Liv Last RN) pantoprazole (PROTONIX) injection 40 mg 40 mg, Intravenous, 2 TIMES DAILY, First dose on 06/25/22 at 1030, Until Discontinued, Dilute each 40 mg vial with 10 mL of NS. All bolus doses, whether 40 mg or 80 mg, should be administered over at least two minutes., Indications: GERD 0855 (Given - Provider: Lori Olmstead RN)1721 (Given - Provider: Lori Olmstead RN) 0908 (Given - Provider: Selma Cortés RN)1724 (Given - Provider: Selma Cortés RN) 0808 (Given - Provider: Selma Cortés RN) scopolamine (TRANSDERM-SCOP) patch 1 patch 1 patch, Transdermal, EVERY 72 HOURS, First dose on 06/26/22 at 1600, Until Discontinued, Apply patch to site behind the ear. Rotate sites for each application. Do not cut or alter patch. Each patch delivers 1 mg over 72 hours. 1442 (Due: Patch Removed - Provider: System Discharge - Comment: Time automatically adjusted from order being discontinued)1600 (Canceled Entry - Provider: System Discharge - Comment: Automatically canceled at discontinue of medication order) sucralfate (CARAFATE) oral suspension 1,000 mg 1,000 mg (1 g), Oral, BEFORE MEALS & AT BEDTIME, First dose on 07/02/22 at 1100, Until Discontinued, Avoid administration of other oral medications within 2 hours of sucralfate. 0855 (Given - Provider: Lori Olmstead RN)1259 (Given - Provider: Lori Olmstead RN)1721 (Given - Provider: Lori Olmstead RN)2051 (Given - Provider: Liv Last RN) 0942 (Not Given - Provider: Selma Cortés RN - Reason: NPO)1043 (Given - Provider: Selma Cortés RN)1724 (Given - Provider: Selma Cortés RN)2008 (Given - Provider: Liv Last RN) 0808 (Given - Provider: Selma Cortés RN)1212 (Given - Provider: Selma Cortés RN)1600 (Canceled Entry - Provider: System Discharge - Comment: Automatically canceled at discontinue of medication order) thiamine tablet 100 mg 100 mg, Oral, DAILY, First dose (after last modification) on 07/02/22 at 0900, Until Discontinued 0855 (Given - Provider: Lori Olmstead RN) 0942 (Hold - Provider: Selma Cortés RN - Reason: NPO)1043 (Given - Provider: Selma Cortés RN - Comment: pt was NPO without meds) 0808 (Given - Provider: Selma Cortés RN) valproate (DEPAKENE) solution 250 mg 250 mg, Oral, 3 TIMES DAILY, First dose (after last modification) on Mon07/01/22 at 2100, Until Discontinued 0856 (Given - Provider: Lori Olmstead RN)1259 (Given - Provider: Lori Olmstead RN)205 (Given - Provider: Liv Last RN) 0942 (Hold - Provider: Selma Cortés RN - Reason: NPO)1306 (Given - Provider: Selma Cortés RN)2008 (Given - Provider: Liv Last RN) 0808 (Given - Provider: Selma Cortés RN)1315 (Given - Provider: Selma Cortés RN) Continuous Medication Order 07/03/2022 07/04/2022 07/05/2022 dextrose 5% and sodium chloride 0.9% IV solution Intravenous, at 50 mL/hr, CONTINUOUS, Starting on 06/25/22 at 0600, Until Tu07/05/22 at 1642 0627 (Rate/Dose Change - Provider: Lori Olmstead RN)0640 (Paused - Provider: Lori Olmstead RN)0640 (Rate/Dose Change - Provider: Lori Olmstead RN)0643 ($$New Bag$$ - Provider: Charline Deleon RN)0726 (Rate/Dose Verify - Provider: Lori Olmstead RN)0734 (Paused - Provider: Lori Olmstead RN)0746 (Restarted - Provider: Lori Olmstead RN)0859 (Paused - Provider: Lori Olmstead RN)0901 (Paused - Provider: Lori Olmstead RN)0907 (Restarted - Provider: Lori Olmstead RN)1100 (Paused - Provider: Lori Olmstead RN)1107 (Restarted - Provider: Lori Olmstead RN)1145 (Rate/Dose Verify - Provider: Lori Olmstead RN)1207 (Paused - Provider: Lori Olmstead RN)1254 (Restarted - Provider: Lori Olmstead RN)1300 (Paused - Provider: Lori Olmstead RN)1304 (Restarted - Provider: Lori Olmstead RN)1315 (Paused - Provider: Lori Olmstead RN)1317 (Restarted - Provider: Lori Olmstead RN)1317 (Paused - Provider: Lori Olmstead RN)1320 (Restarted - Provider: Lori Olmstead RN)1321 (Paused - Provider: Lori Olmstead RN)1324 (Restarted - Provider: Lori Olmstead RN)1325 (Paused - Provider: Lori Olmstead RN)1327 (Restarted - Provider: Lori Olmstead RN)1328 (Paused - Provider: Lori Olmstead RN)1329 (Paused - Provider: Lori Olmstead RN)1331 (Restarted - Provider: Lori Olmstead RN)1332 (Paused - Provider: Lori Olmstead RN)1336 (Restarted - Provider: Lori Olmstead RN)1337 (Paused - Provider: Lori Olmstead RN)1349 (Restarted - Provider: Lori Olmstead RN)1521 (Paused - Provider: Lori Olmstead RN)1523 (Restarted - Provider: Lori Olmstead RN)1527 (Paused - Provider: Lori Olmstead RN)1527 (Paused - Provider: Lori Olmstead RN)1535 (Restarted - Provider: Lori Olmstead RN)1723 (Paused - Provider: Lori Olmstead RN)1727 (Restarted - Provider: Lori Olmstead RN)1756 (Rate/Dose Verify - Provider: Lori Olmstead RN)2000 (Rate/Dose Verify - Provider: Liv Last RN) 0000 (Rate/Dose Verify - Provider: Liv Last RN)0400 (Rate/Dose Verify - Provider: Liv Last RN)0422 ($$New Bag$$ - Provider: Liv Last RN)1405 (Rate/Dose Verify - Provider: Selma Cortés RN)1822 (Rate/Dose Verify - Provider: Selma Cortés RN)2211 ($$New Bag$$ - Provider: Liv Last RN) 0000 (Rate/Dose Verify - Provider: Liv Last RN)0400 (Rate/Dose Verify - Provider: Liv Last RN)0946 (Rate/Dose Verify - Provider: Selma Cortés RN) PRN Medication Order 07/03/2022 07/04/2022 07/05/2022 acetaminophen (TYLENOL) tablet 650 mg 650 mg, Oral, EVERY 6 HOURS NEEDED, Starting on Mon06/25/22 at 0518, Until Mon07/05/22 at 1642, Mild Pain, Oral temp > 100.4 F, Maximum dose of acetaminophen is 4000 mg from all sources in 24 hours. 1715 (Given - Provider: Lori Olmstead RN) calcium carbonate antacid tablet 648 mg 648 mg (1 tablet), Oral, 4 TIMES DAILY NEEDED, Starting on Mon07/01/22 at 1557, Until Mon07/05/22 at 1642, Indigestion diphenhydrAMINE (BENADRYL) injection (COMPLETED) Intravenous, ONCE NEEDED, 1 dose, Starting on Mon07/04/22 at 1604, Until Mon07/04/22 at 1604 1604 (Given - Provider: Porsha Moon, SKIP) fentaNYL (SUBLIMAZE) injection (COMPLETED) Intravenous, Administer over 2 Minutes, ONCE NEEDED, 1 dose, Starting on Mon07/04/22 at 1600, Until Mon07/04/22 at 1600 1600 (Given - Provider: Porsha Moon, SKIP) fentaNYL (SUBLIMAZE) injection (COMPLETED) Intravenous, Administer over 2 Minutes, ONCE NEEDED, 1 dose, Starting on Mon07/04/22 at 1604, Until Mon07/04/22 at 1604 1604 (Given - Provider: Porsha Moon, SKIP) HYDROmorphone (DILAUDID) injection 0.5 mg (CANCELED) 0.5 mg, Intravenous, 2 TIMES DAILY NEEDED, Starting on Mon06/29/22 at 0713, Until Mon07/05/22 at 0942, Severe pain requiring analgesia < 60 minutes, if oxycodone ineffective 1102 (Given - Provider: Lori Olmstead RN)1528 (Given - Provider: Lori Olmstead RN) 0908 (Given - Provider: Selma Cortés, SKIP)2012 (Given - Provider: Liv Last, SKIP) 0923 (Given - Provider: Selma Cortés, SKIP) magic mouthwash (standard) Swish & Swallow, EVERY 6 HOURS NEEDED, Starting on Mon07/01/22 at 1604, Until Mon07/05/22 at 1642, Indigestion, Shake well. Expiration 7 days. melatonin tablet 6 mg 6 mg, Oral, DAILY AT BEDTIME NEEDED, Starting on Mon06/25/22 at 0518, Until Mon07/05/22 at 1642, Insomnia Midazolam HCl (PF) (VERSED) injection (COMPLETED) Intravenous, ONCE NEEDED, 1 dose, Starting on Mon07/04/22 at 1600, Until Mon07/04/22 at 1600 1600 (Given - Provider: Porsha Moon RN) Midazolam HCl (PF) (VERSED) injection (COMPLETED) Intravenous, ONCE NEEDED, 1 dose, Starting on Mon07/04/22 at 1604, Until Mon07/04/22 at 1604 1604 (Given - Provider: Porsha Moon, SKIP) Midazolam HCl (PF) (VERSED) injection (COMPLETED) Intravenous, ONCE NEEDED, 1 dose, Starting on 07/04/22 at 1608, Until Mon07/04/22 at 1608 1608 (Given - Provider: Porsha Moon, SKIP) ondansetron (ZOFRAN) tablet 4 mg(Linked Group 3) 4 mg, Oral, EVERY 6 HOURS NEEDED, Starting on 06/25/22 at 0518, Until Mon07/05/22 at 1642, Nausea / Vomiting, 1st line for Nausea/Vomiting 1529 (See Alternative - Provider: Lori Olmstead RN) 1043 (See Alternative - Provider: Selma Cortés, SKIP) ondansetron 4mg/2ml (ZOFRAN) injection 4 mg(Linked Group 3) 4 mg, Intravenous, EVERY 6 HOURS NEEDED, Starting on 06/25/22 at 0518, Until Mon07/05/22 at 1642, Nausea / Vomiting, 1st line for Nausea/Vomiting 1529 (Given - Provider: Lori Olmstead RN) 1043 (Given - Provider: Selma Cortés, SKIP) oxyCODONE (ROXICODONE) tablet 5 mg 5 mg, Oral, EVERY 4 HOURS NEEDED, Starting on Mon07/01/22 at 1557, Until Mon07/05/22 at 1642, Severe Pain 0049 (Given - Provider: Charline Deleon RN)0856 (Given - Provider: Lori Olmstead RN)1259 (Given - Provider: Lori Olmstead RN)1715 (Given - Provider: Lori Olmstead RN)2055 (Given - Provider: Liv Last RN) 1043 (Given - Provider: Selma Cortés, SKIP)2209 (Given - Provider: Liv Last, SKIP) 0808 (Given - Provider: Selma Cortés, SKIP)1212 (Given - Provider: Selma Cortés, SKIP) phenol (CHLORASEPTIC) 1.4 % oral spray 2 spray 2 spray, Mouth/Throat, NEEDED, Starting on Tiana 06/30/22 at 1658, Until Mon07/05/22 at 1642, Sore Throat, Patient may self-administer. promethazine (PHENERGAN) injection 6.25 mg 6.25 mg, Intravenous, EVERY 8 HOURS NEEDED, Starting on Mon06/25/22 at 1742, Until Mon07/05/22 at 1642, Refractory Nausea Vomiting, Extravasation Risk. If given via IV route: dilute dose with 10mL normal saline and inject through a running IV or line over 5 minutes OR if no active IV or line is saline-dwelled dilute dose with 20mL normal saline and administer over 5 minutes. AVOID Intra-arterial administration; necrosis & gangrene have resulted. Hand, wrist or foot veins SHOULD BE AVOIDED. sodium chloride 0.9% IV solution 250 mL Intravenous, at 20 mL/hr, NEEDED, Starting on Mon06/25/22 at 0518, Until Mon07/05/22 at 1642, Carrier Fluid - See Admin. Inst, 250mL 0.9NS to be used as carrier fluid for intermittent small volume or piggyback medication administration as needed. Infusion rate of the carrier fluid should be set at 20 mL/hr unless the rate as the intermittent medication is less than 20 mL/hr. For intermittent medications with a rate less than 20 mL/hr set the carrier fluid at that rate of the intermittent or piggy back medication. traZODone (DESYREL) tablet 100 mg 100 mg, Oral, DAILY AT BEDTIME NEEDED, Starting on Mon06/27/22 at 2106, Until Mon07/05/22 at 1642, Sleep 2051 (Given - Provider: Liv Last RN) 2008 (Given - Provider: Liv Last RN) No Frequency Medication Order 07/03/2022 07/04/2022 07/05/2022 sodium chloride 0.9% IV solution 1 dose, Starting on Mon07/04/22 at 1537, Until Mon07/05/22 at 1545, Created by cabinet override [id number] (Not Given - Provider: Gina Stack RN - Reason: Other) Linked Groups Order Group 1: Enoxaparin Sodium (LOVENOX) injection 40 mgJump to med 40 mg, Subcutaneous, DAILY, First dose on Mon06/27/22 at 0900, Until Discontinued

Indications: DVT/PE prophylaxis And PLATELET COUNT (CANCELED) Routine, EVERY 3 DAYS AM LAB, First occurrence on Mon06/29/22 at 0500, Until Specified, New collection Group 2: hydrocortisone (CORTEF) tablet 10 mgJump to med 10 mg, Oral, CUSTOM FREQUENCY (2 times per day), First dose (after last modification) on Mon06/29/22 at 0800, Until Discontinued And hydrocortisone (CORTEF) tablet 5 mgJump to med 5 mg, Oral, DAILY AT BEDTIME, First dose (after last modification) on Mon06/29/22 at 2100, Until Discontinued Group 3: ondansetron 4mg/2ml (ZOFRAN) injection 4 mgJump to med 4 mg, Intravenous, EVERY 6 HOURS NEEDED, Starting on Mon06/25/22 at 0518, Until Mon07/05/22 at 1642, Nausea / Vomiting, 1st line for Nausea/Vomiting Or ondansetron (ZOFRAN) tablet 4 mgJump to med 4 mg, Oral, EVERY 6 HOURS NEEDED, Starting on Mon06/25/22 at 0518, Until Mon07/05/22 at 1642, Nausea / Vomiting, 1st line for Nausea/Vomiting Goals (unrecognized section and content) Goals may be documented in a n alternate sectionGoals may be documented in an alternate sectionGoals may be documented in an alternate sectionGoals may be documented in an alternate sectionGoals may be documented in an alternate sectionGoals may be documented in an alternate sectionGoals may be documented in an alternate sectionGoals may be documented in an alternate section No data available for this sectionGoals may be documented in an alternate section FOR RECORDS PERTAINING TO PATIENTS WHO ARE OR HAVE BEEN ENROLLED IN A CHEMICAL DEPENDENCY/SUBSTANCEABUSE PROGRAM, SOME INFORMATION MAY BE OMITTED. This clinical summary was aggregated from multiple sources. Caution should be exercised in using it in the provision of clinical care. This summary normalizes information from multiple sources, and as a consequence, information in this document may materially change the coding, format and clinical context of patient data. In addition, data may be omitted in some cases. CLINICAL DECISIONS SHOULD BE BASED ON THE PRIMARY CLINICAL RECORDS. [facility]. provides no warranty or guarantee of the accuracy or completeness of information in this document.
[2025-09-16 19:44] LABS: AST(SGOT) 30 U/L (<=31); Alanine Aminotransfer ALT/SGPT 35 U/L (<=34); Albumin, Serum 4.3 g/dL (3.5-5.0); Alkaline Phosphatase 91 U/L (35-104); Anion Gap 19 (5-15); BUN 6 mg/dL (4-19); BUN/Creat Ratio 5.7 RATIO (10-20); Calcium,Total 9.4 mg/dL (7.6-11.0); Carbon Dioxide 21.8 mmol/L (21.0-32.0); Chloride 97 mmol/L (98-108); Estimated Creatinine Clearance 87.91 ml/min (50-250); Globulin 3.0 g/dL (2.2-4.2); Glucose 142 mg/dL (70-99); Lipase 18 U/L (13-75); Potassium 4.4 mmol/L (3.3-5.1)
[2025-09-16 19:52] LABS: CORTISOL PM 0.80 ug/dL (2.68-10.50)
[2025-09-16 20:25] LABS: Mucous, Urine 0 SEEN /hpf (<or=2+)
[2025-09-16 20:28] VITALS: BP 105/60; PULSE 109; RESP 18; O2SAT 98
[2025-09-16 20:33] LABS: Color, Urine Yellow (Yellow); Glucose, Dipstick 250 mg/dl (Normal); Ketone-Dipstick Negative (Negative); Leukocyte Esterase-Dipstick Negative /ul (Negative); Nitrite-Dipstick Negative (Negative); Occult Blood-Urine Negative /ul (Negative); Protein-Dipstick 15 mg/dl (Negative); Specific Gravity, Urine 1.015 (1.002-1.030); Urine Bilirubin Dipstick Negative (Negative)
[2025-09-16 20:40] VITALS: BP 105/60; BP 118/70; BP 87/74; PULSE 109; PULSE 122; PULSE 127
[2025-09-16 21:33] LABS: Red Blood Cells-Urine 0-5 SEEN /hpf (0-5); Squamous Epithelial Cells - UA 0-5 SEEN /hpf (5-10)
[2025-09-16 23:19] VITALS: BP 108/68; PULSE 100; RESP 18; TEMP 36.7; O2SAT 95
--- NOTE | 2025-09-17 00:43 | EX.ED.DYSGE1 ---
HPI History of Present Illness Chief Complaint: Nausea/Vomiting Narrative Narrative: Patient is a 30-year-old female presenting to the emergency department for multiple complaints including lightheadedness, facial flushing, reported facial swelling, myalgias, fatigue, nausea, nonbloody vomiting and right sided abdominal pain. Patient has a past medical history of Graves' disease, Kailua's disease, type 2 diabetes, depression anxiety, IBS, GROSS, GERD and gastroparesis. Past surgical history of hysterectomy and cholecystectomy. She is concerned that she is having a flare of her Davonte's disease. She states that she was discharged from the hospital few weeks ago after a flare and states that she has not really felt improved since being discharged. States that with her typical Kailua's flare she gets the symptoms stated above. She reports that she sees endocrinology at the [facility], Dr. Pride. She reports that when she is having a flare she was told to take double her dose of Decadron. She states she normally takes 0.75 mg daily and took 2 doses this morning. She denies chest pain, dysuria, hematuira, leg swelling. Denies anyone sick around her. Denies fever or chills. Prior similar symptoms: Yes PFSH [facility] Medical History Depression Kidney stones GI bleed Irregular heart beat Migraines Acute adrenal insufficiency Addisonian crisis Addisons disease Gastroparesis Dysphagia Wears glasses History of steroid therapy Diabetes Low iron Easy bruising Restless legs Seizures Difficulty swallowing History of ulceration History of IBS History of diverticulitis Gastric reflux Former smoker Asthma Shortness of breath on exertion Cardiology follow-up encounter History of echocardiogram History of stress test Chest pain History of left heart catheterization Anxiety and depression Graves disease Abnormal uterine bleeding (AUB) Endometriosis determined by laparoscopy Adenomyosis Chronic female pelvic pain Migraine Mild intermittent asthma Home Medications Medication Instructions Recorded Last Taken Type albuterol sulfate 90 mcg/actuation 2 inh inhalation Q4H PRN sob 08/09/22 Unknown History aerosol inhaler (Ventolin HFA) pantoprazole 40 mg tablet,delayed 40 mg PO DAILY GERD 02/23/23 07/20/25 History release atorvastatin 10 mg tablet 10 mg PO DAILY hyperlipidemia 07/24/23 08/25/25 History clomipramine 50 mg capsule 100 mg PO BID DEPRESSION 07/24/23 08/26/25 History levothyroxine 125 mcg tablet 125 mcg PO DAILY THYROID 07/24/23 08/25/25 History alprazolam 0.5 mg tablet 0.5 mg PO Q8H PRN anxiety 02/16/25 08/25/25 History empagliflozin 10 mg tablet 10 mg PO DAILY TYPE 2 DIABETES 02/16/25 08/26/25 History (Jardiance) lamotrigine 100 mg tablet 100 mg PO DAILY MOOD 02/16/25 08/25/25 History lurasidone 60 mg tablet 60 mg PO QPM MOOD 02/16/25 08/25/25 History topiramate 25 mg tablet 25 mg PO QHS migraine 02/16/25 08/25/25 History ondansetron 4 mg disintegrating 4 mg PO TID PRN nausea/vomiting 07/20/25 08/19/25 History tablet dexamethasone 1.5 mg tablet See Rx Instructions .Route 08/28/25 Unknown Rx .COMPLEX #18 tabs oxycodone 5 mg tablet 5 mg PO Q6H PRN Pain Score 4-10 3 08/28/25 Unknown Rx days #12 tabs Allergy/AdvReac Type Severity Reaction Status Date / Time acetaminophen (From Excedrin Allergy Anaphylaxis Verified 09/16/25 18:30 Migraine) aspirin (From Excedrin Allergy Anaphylaxis Verified 09/16/25 18:30 Migraine) azithromycin (From Zithromax Allergy Anaphylaxis Verified 09/16/25 18:29 Z-Ruiz) bacitracin (From Neosporin Allergy Swelling Verified 09/16/25 18:29 ([id number])) bacitracin zinc (From Allergy Swelling Verified 09/16/25 18:29 Neosporin ([id number])) caffeine (From Excedrin Allergy Anaphylaxis Verified 09/16/25 18:29 Migraine) latex Allergy Rash Verified 09/16/25 18:29 neomycin sulfate (From Allergy Swelling Verified 09/16/25 18:29 Neosporin ([id number])) polymyxin B (From Neosporin Allergy Swelling Verified 09/16/25 18:30 ([id number])) ketorolac (From Toradol) AdvReac "gets Verified 09/16/25 18:30 violent" Family History Uncle Diabetes Cancer lung Father Diabetes Grandfather CVA (cerebral vascular accident) Cancer lung, unsure additional type Uncle Cancer brain Grandmother Cancer lung and unsure additional type Surgical History History of cholecystectomy History of appendectomy Hx laparoscopic cholecystectomy History of left salpingo-oophorectomy History of tubal ligation History of laparoscopic-assisted vaginal hysterectomy History of laparoscopy History of wisdom tooth extraction History of thyroidectomy History of section Social History household members: spouse housing: house Smoking Status: Former smoker ROS ROS ED ROS Narrative see HPI EXAM Physical Exam Narrative Exam Narrative: Vital signs: Reviewed General: Alert and orientedx3. No acute distress HEENT: Head is normocephalic and atraumatic, sinuses nontender, pupils equal round and reactive. Nares are patent. Oropharynx and throat exams normal. Neck: Supple without lymphadenopathy nontender Cardiovascular: Regular rate and rhythm, no murmurs. No rubs or gallops. Normal S1 and S2 Respiratory: Clear to auscultation bilaterally. No wheezes, rales, rhonchi Abdominal: Soft and mildly tender to palpation in the RUQ. Normal bowel sounds. No guarding or rebound. Nonsurgical abdomen Extremities: No lower extremity edema. No tenderness. No bruising. Normal range of motion. Normal sensation. Skin: No rash or redness. Neurological: Cranial nerves II through XII are grossly intact. Normal strength and sensation. Normal cerebellar function The rest of the physical exam is unremarkable Const Vital Signs: 09/16/25 18:30 09/16/25 18:35 09/16/25 20:28 Temperature 96.5 F L Temperature Source Temporal Pulse Rate 127 H 84 109 H Pulse Rate [Lying] Pulse Rate [Sitting (for 1 minute prior to obtaining)] Pulse Rate [Standing (for 1 minute prior to obtaining)] Respiratory Rate 20 H 18 Blood Pressure 129/86 H 118/75 105/60 Blood Pressure [Lying] Blood Pressure [Sitting (for 1 minute prior to obtaining)] Blood Pressure [Standing (for 1 minute prior to obtaining)] Blood Pressure Mean 100 89 75 Blood Pressure Mean [Lying] Blood Pressure Mean [Sitting (for 1 minute prior to obtaining)] Blood Pressure Mean [Standing (for 1 minute prior to obtaining)] Pulse Ox 98 98 98 Oxygen Delivery Method Room Air Room Air Room Air 09/16/25 20:40 09/16/25 23:19 09/16/25 23:19 Temperature 98.0 F 98.0 F Temperature Source Oral Pulse Rate 100 100 Pulse Rate [Lying] 109 H Pulse Rate [Sitting (for 1 minute prior to obtaining)] 127 H Pulse Rate [Standing (for 1 minute prior to obtaining)] 122 H Respiratory Rate 18 18 Blood Pressure 108/68 108/68 Blood Pressure [Lying] 105/60 Blood Pressure [Sitting (for 1 minute prior to obtaining)] 118/70 Blood Pressure [Standing (for 1 minute prior to obtaining)] 87/74 L Blood Pressure Mean 81 81 Blood Pressure Mean [Lying] 75 Blood Pressure Mean [Sitting (for 1 minute prior to obtaining)] 86 Blood Pressure Mean [Standing (for 1 minute prior to obtaining)] 78 Pulse Ox 95 95 Oxygen Delivery Method Room Air MDM MDM MDM Narrative Medical decision making narrative: Patient is a 30-year-old female presenting to the emergency department for multiple complaints that can be seen in the HPI. Patient was seen and examined. Vitals are stable. She does arrive tachycardic at 127. Patient resting in bed comfortably in no acute distress. Differential includes but is not limited to: Adrenal crisis, pneumonia, gastroenteritis, dehydration, UTI, anemia, electrolyte imbalance, viral syndrome Orthostatics positive. Patient on fluid bolus at this time. Patient given morphine and Zofran for symptomatic control. EKG shows sinus tachycardia at a rate of [address] and T wave abnormalities. Nothing that is meeting STEMI criteria. No dysrhythmia. CBC with no leukocytosis and a normal hemoglobin. CMP with no significant abnormalities. Very mild anion gap of 19. Normal bicarb. Very mildly elevated glucose of 142. Normal liver enzymes. Lipase within normal limits. Low cortisol level of 0.80. Patient was given 100 mg of Solu-Cortef. Urinalysis no evidence of urinary tract infection. She has a history of prior hysterectomy, no need for urine . CT done pelvis shows no acute intra-abdominal pathology. Hepatic steatosis. Chest x-ray reviewed myself, no opacities, pneumothorax or wide mediastinum. Radiology read in agreement. Patient was reevaluated and updated on the lab and imaging findings. I offered further fluids given the patient's significant orthostatics and reevaluation to determine admission versus discharge. Patient states that she is still feeling ill. Did recommend staying for fluids. She states that she would like to go home and rest and reevaluate her symptoms. She states that she wants to be home for Thanksgiving. I did recommend fluids and further medications and reevaluation to at least have her feeling better. I also did page out to the patient's on-call pipeline construction inspector however they reported that they could not speak with me because they are not on-call for Matteo. I recommended that she call her pipeline construction inspector tomorrow morning for further recommendations. Recommended returning at any time if she decides to have continued treatment and fluids. Patient discharged from the Emergency Department. I do not feel that the patient's evaluation reveals any acute reason for admission at this time. I instructed them to either follow-up with their primary care physician or promptly return to the Emergency Department for reevaluation should symptoms worsen or new symptoms develop. I explained what symptoms would indicate the need to return to the emergency department. Shared decision making was used. The patient voiced understanding of the treatment plan and is agreeable with it. Clinical impression Orthostatic hypotension Abdominal pain Nausea and vomiting History & Record Review Discussion w/independent historian: Patient and Family Additional record(s) reviewed:: Prior ED visit and Prior labs Lab Data Attestation: I reviewed the patient's lab results. Labs: Laboratory Results - last 24 hr 09/16/25 09/16/25 18:44 20:11 WBC 8.6 RBC 4.91 Hgb 12.2 Hct 39.3 MCV 80.0 L MCH 24.8 L MCHC 31.0 L RDW Std Deviation 50.5 H RDW Coeff of Renetta 17.6 H Plt Count 446 MPV 9.5 Immature Gran % (Auto) 0.700 Neut % (Auto) 50.9 Lymph % (Auto) 38.8 [place] % (Auto) 7.7 Eos % (Auto) 1.5 Baso % (Auto) 0.4 Absolute Neuts (auto) 4.4 Absolute Lymphs (auto) 3.32 Nucleated RBC % 0 Sodium 137 Potassium 4.4 Chloride 97 L Carbon Dioxide 21.8 Anion Gap 19 H BUN 6 Creatinine 1.05 Estim Creat Clear Calc 87.91 Est GFR (MDRD) Non-Af 72 BUN/Creatinine Ratio 5.7 L Glucose 142 H Calcium 9.4 Total Bilirubin 0.89 AST 30 ALT 35 Alkaline Phosphatase 91 Total Protein 7.3 Albumin 4.3 Globulin 3.0 Albumin/Globulin Ratio 1.4 Lipase 18 Cortisol PM Sample 0.80 L Urine Color Yellow Urine Clarity Clear Urine pH 6.0 Ur Specific Edison 1.015 Urine Protein 15 H Urine Glucose (UA) 250 H Urine Ketones Negative Urine Occult Blood Negative Urine Nitrite Negative Urine Bilirubin Negative Urine Urobilinogen Normal Ur Leukocyte Esterase Negative Urine RBC 0-5 SEEN Urine WBC 0-5 SEEN Ur Squamous Epith Cells 0-5 SEEN Urine Bacteria 0 SEEN Urine Mucus 0 SEEN Radiography Chest X-Ray - ED: 2 View, Read by ED Physician, Normal, No Acute Disease and No Infiltrates Diagnostic Testing: Clinical Impression(s) from Imaging Studies Abdomen/Pelvis CT 09/16/25 19:05 IMPRESSION: No acute intra-abdominal pathology. Hepatic steatosis. Reading Location: [facility] Chest X-Ray 09/16/25 19:05 IMPRESSION: NO ACUTE FINDINGS. Reading Location: [facility] Discharge Plan Triage Chief Complaint: Nausea/Vomiting ED Provider: Raquel Santiago Dx/Rx/DC Orders Clinical Impression: Orthostatic hypotension, Abdominal pain, Nausea & vomiting Instructions: Abdominal Pain, ED Hypotension, Orthostatic, ED Vomiting (Adult) Prescriptions: No Action albuterol sulfate [Ventolin HFA] 90 mcg/actuation HFA aerosol inhaler 2 inh INHALATION Q4H PRN (Reason: sob) Patient Comments: Inhale 2 Puffs as instructed every 4 hours as needed. pantoprazole 40 mg tablet,delayed release (DR/EC) 40 mg PO DAILY atorvastatin 10 mg tablet 10 mg PO DAILY Patient Comments: TAKE 1 TABLET BY MOUTH ONCE DAILY levothyroxine 125 mcg tablet 125 mcg PO DAILY clomipramine 50 mg capsule 100 mg PO BID alprazolam 0.5 mg tablet 0.5 mg PO Q8H PRN (Reason: anxiety) topiramate 25 mg tablet 25 mg PO QHS lurasidone 60 mg tablet 60 mg PO QPM lamotrigine 100 mg tablet 100 mg PO DAILY Jardiance 10 mg tablet 10 mg PO DAILY ondansetron 4 mg tablet,disintegrating 4 mg PO TID PRN (Reason: nausea/vomiting) oxycodone 5 mg Tablet 5 mg PO Q6H PRN (Reason: Pain Score 4-10) 3 Days Qty: 12 0RF dexamethasone 1.5 mg tablet See Rx Instructions .ROUTE .COMPLEX Qty: 18 0RF Rx Instructions: Take 3 tablets daily for 3 days then 2 tablets daily for 3 days then 1 tablet daily for 3 days then resume your home dosing Primary Care Provider: Kevin Stauffer Referrals: [facility] [employer] [Other] - As soon as possible Kevin Stauffer MD [Primary Care Provider, Medical] - As soon as possible Activity Restrictions/Additional Instructions: Call your pipeline construction inspector tomorrow morning for follow-up. Drink lots of fluids at home. Your evaluation in the Emergency Department did not reveal any acute reason for admission. However, I want to emphasize that you may be early in the course of a disease process or illness even if it is not present. For this reason you should follow-up within 24 hours for reevaluation with either your primary care physician or if necessary back here in the Emergency Department. You should return to the Emergency Department immediately if your symptoms worsen or new symptoms develop. Print Language: Surinamese Disposition Disposition: Home, Self Care Discharge Date/Time: 09/16/25 23:30
== END 2025-09-16 23:30 | disposition home or self-care (01) ==
PROVIDERS: Emergency Provider Student in an Organized Health Care Education/Training Program; PCP Family Medicine; Visit Provider Student in an Organized Health Care Education/Training Program
DX: I95.1 Orthostatic hypotension (principal); E27.1 Primary adrenocortical insufficiency; E11.43 Type 2 diabetes mellitus with diabetic autonomic (poly)neuropathy; R11.2 Nausea with vomiting, unspecified; Z87.891 Personal history of nicotine dependence; R10.9 Unspecified abdominal pain; K21.9 Gastro-esophageal reflux disease without esophagitis; K31.84 Gastroparesis; Z90.49 Acquired absence of other specified parts of digestive tract; J45.909 Unspecified asthma, uncomplicated; Z79.890 Hormone replacement therapy; Z79.899 Other long term (current) drug therapy
CPT/HCPCS: 71046; 74177; 80053; 81001; 82533; 83690; 85025; 87631; 93005; 96361; 96374; 96375; 99284; Q9967; J2405

== ENCOUNTER 2025-10-20 09:00 | Emergency (ER) | payer OTHER, SELFPAY ==
[2025-10-20 09:01] VITALS: BP 158/99; PULSE 163; RESP 24; TEMP 36.6; O2SAT 100
[2025-10-20 09:03] VITALS: BMI 34.7
--- NOTE | 2025-10-20 09:21 | EKG12_ITS ---
Test Reason : INCREASED HR Blood Pressure : */* mmHG Vent. Rate : 138 BPM Atrial Rate : 138 BPM P-R Int : 104 ms QRS Dur : 90 ms QT Int : 370 ms P-R-T Axes : * 15 61 degrees QTcB Int : 560 ms Critical Test Result: Long QTc Sinus tachycardia with short KS Nonspecific ST and T wave abnormality Abnormal ECG Confirmed by Carlos Villa ([id number]), video editor SOILA SORIANO ([id number]) on 10/24/2025 6:33:14 AM Referred By: BB/AC Confirmed By: Carlos Villa
--- NOTE | 2025-10-20 09:24 | ED.VIS.CHEST ---
HPI History of Present Illness Chief Complaint: Palpitations Informant: patient Narrative Narrative: Patient is a 30-year-old female with a history of Davonte's disease and hypothyroidism presenting with sudden-onset rapid palpitations, dizziness, and chest pain. - Reports onset of palpitations around 0730 this morning (1-2 hrs ago), accompanied by dizziness and tachycardia, with HR reaching 160 bpm on home monitor. - Attempted to alleviate symptoms by lying down and elevating feet, but tachycardia persisted. - Associated symptoms include chest pain during episodes of intense palpitations and xerostomia. - Denies syncope. - Reports left-sided abdominal pain since yesterday, with associated nausea but no emesis. - Denies changes in urination or bowel movements. Denies cough; no known fevers, but reports feeling flushed and overheated. - Recent stress and recent adjustment in steroid dosage from 0.75 mg Decadron BID to 0.75 mg daily, changed two weeks ago by her employment educational coord due to excessive water weight gain. - Has not taken today's dose yet. - History of hyperthyroidism requiring thyroidectomy, currently on thyroid replacement therapy. [facility] Medical History (Updated 10/20/25 @ 12:[address] Piotr Garay MD) Depression Kidney stones GI bleed Irregular heart beat Migraines Acute adrenal insufficiency Addisonian crisis Addisons disease Gastroparesis Dysphagia Wears glasses History of steroid therapy Diabetes Low iron Easy bruising Restless legs Seizures Difficulty swallowing History of ulceration History of IBS History of diverticulitis Gastric reflux Former smoker Asthma Shortness of breath on exertion Cardiology follow-up encounter History of echocardiogram History of stress test Chest pain History of left heart catheterization Anxiety and depression Graves disease Abnormal uterine bleeding (AUB) Endometriosis determined by laparoscopy Adenomyosis Chronic female pelvic pain Migraine Mild intermittent asthma Home Medications Medication Instructions Recorded Last Taken Type albuterol sulfate 90 mcg/actuation 2 inh inhalation Q4H PRN sob 08/09/22 Unknown History aerosol inhaler (Ventolin HFA) pantoprazole 40 mg tablet,delayed 40 mg PO DAILY GERD 02/23/23 07/20/25 History release atorvastatin 10 mg tablet 10 mg PO DAILY hyperlipidemia 07/24/23 08/25/25 History clomipramine 50 mg capsule 100 mg PO BID DEPRESSION 07/24/23 08/26/25 History levothyroxine 125 mcg tablet 125 mcg PO DAILY THYROID 07/24/23 08/25/25 History alprazolam 0.5 mg tablet 0.5 mg PO Q8H PRN anxiety 02/16/25 08/25/25 History empagliflozin 10 mg tablet 10 mg PO DAILY TYPE 2 DIABETES 02/16/25 08/26/25 History (Jardiance) lamotrigine 100 mg tablet 100 mg PO DAILY MOOD 02/16/25 08/25/25 History lurasidone 60 mg tablet 60 mg PO QPM MOOD 02/16/25 08/25/25 History topiramate 25 mg tablet 25 mg PO QHS migraine 02/16/25 08/25/25 History ondansetron 4 mg disintegrating 4 mg PO TID PRN nausea/vomiting 07/20/25 08/19/25 History tablet dexamethasone 1.5 mg tablet See Rx Instructions .Route 08/28/25 Unknown Rx .COMPLEX #18 tabs oxycodone 5 mg tablet 5 mg PO Q6H PRN Pain Score 4-10 3 08/28/25 Unknown Rx days #12 tabs Allergy/AdvReac Type Severity Reaction Status Date / Time acetaminophen (From Excedrin Allergy Anaphylaxis Verified 10/20/25 09:04 Migraine) aspirin (From Excedrin Allergy Anaphylaxis Verified 10/20/25 09:04 Migraine) azithromycin (From Zithromax Allergy Anaphylaxis Verified 10/20/25 09:04 Z-Ruiz) bacitracin (From Neosporin Allergy Swelling Verified 10/20/25 09:04 ([id number])) bacitracin zinc (From Allergy Swelling Verified 10/20/25 09:04 Neosporin ([id number])) caffeine (From Excedrin Allergy Anaphylaxis Verified 10/20/25 09:04 Migraine) latex Allergy Rash Verified 10/20/25 09:04 neomycin sulfate (From Allergy Swelling Verified 10/20/25 09:04 Neosporin ([id number])) polymyxin B (From Neosporin Allergy Swelling Verified 10/20/25 09:04 ([id number])) ketorolac (From Toradol) AdvReac "gets Verified 10/20/25 09:04 violent" Family History Uncle Diabetes Cancer lung Father Diabetes Grandfather CVA (cerebral vascular accident) Cancer lung, unsure additional type Uncle Cancer brain Grandmother Cancer lung and unsure additional type Surgical History (Updated 10/20/25 @ 09:35 by Dayami Steele) H/O right heart catheterization History of cholecystectomy History of appendectomy Hx laparoscopic cholecystectomy History of left salpingo-oophorectomy History of tubal ligation History of laparoscopic-assisted vaginal hysterectomy History of laparoscopy History of wisdom tooth extraction History of thyroidectomy History of section Social History household members: spouse housing: house Smoking Status: Former smoker ROS ROS ED Constitutional Constitutional ED: Denies chills or fever(s) Eyes Eyes: Denies change in vision or diplopia ENT ENT ED: Denies rhinorrhea or sore throat Cardiovascular Cardiovascular: Reports chest pain, lightheadedness, palpitations and racing heartbeat; Denies leg edema, radiating jaw, neck or arm pain or syncope Respiratory/Chest Respiratory/Chest: Denies cough or dyspnea Gastrointestinal Gastrointestinal: Reports abdominal pain and nausea; Denies diarrhea or vomiting Genitourinary Genitourinary ED: Denies dysuria or hematuria Musculoskeletal Musculoskeletal: Denies back pain or neck pain Integumentary Denies abscess or rash Neurologic Neurologic: Denies headache(s), paresthesias or weakness Psychiatric Psychiatric: Denies suicidal thoughts EXAM Physical Exam Const Vital Signs: 10/20/25 09:01 10/20/25 10:01 10/20/25 10:03 Temperature 97.9 F Temperature Source Oral Pulse Rate 163 H 97 Respiratory Rate 24 H 18 Blood Pressure 158/99 H 128/87 H Blood Pressure Mean 118 100 Pulse Ox 100 100 Oxygen Delivery Method Room Air Nasal Cannula Nasal Cannula Oxygen Flow Rate (L/min) 2 2 Fraction of Inspired Oxygen (FIO2) 100 10/20/25 11:00 10/20/25 12:00 Temperature Temperature Source Pulse Rate 93 86 Respiratory Rate 14 16 Blood Pressure 116/84 H 116/83 H Blood Pressure Mean 94 94 Pulse Ox 100 100 Oxygen Delivery Method Room Air Room Air Oxygen Flow Rate (L/min) Fraction of Inspired Oxygen (FIO2) Positive well nourished, well developed and obese General Appearance ED: well developed and NAD Nutritional Appearance: obese HEENT Reports moist mucous membranes normocephalic and atraumatic Eyes PERRL and EOMs intact bilaterally Neck full ROM and supple Resp normal respiratory effort and clear to auscultation bilaterally Cardio regular rate, regular rhythm and no murmurs Rate: tachycardic GI non-distended GI Narrative: Mild left lower quadrant tenderness no guarding or rebound Auscultation: normoactive bowel sounds Palpation: soft Back/Spine no CVA tenderness General Back: other FROM Extremity normal to inspection General Extremety ED: Negative for edema, pulses abnormal or tenderness General Extremity: Negative for edema or pulses abnormal Neuro oriented x3, CN's II-XII intact bilaterally and no sensory deficits noted Sensorium / Orientation: awake and alert Motor Exam: strength 5/5 throughout Psych Mood & Affect: anxious Skin no rashes or lesions noted and no wounds MDM MDM MDM Narrative Medical decision making narrative: Assessment: The patient is a 30-year-old female with PMH of Troy's disease and post-thyroidectomy hypothyroidism presenting for rapid palpitations since this morning accompanied by left-sided abdominal pain. Initial heart rate was up to 160 bpm, sinus tachycardia on EKG. Adenosine 6 mg IV transiently slowed but did not convert, arguing against AVNRT or other re-entrant tachydysrhythmia. Negative D-dimer, normal chest X-ray, and two negative troponins effectively rule out pulmonary embolism and acute coronary syndrome. CT abdomen/pelvis shows no acute pathology, and urinalysis is unremarkable, making renal or intra-abdominal causes unlikely. Differential includes transient tachydysrhythmia, anxiety, and pain-induced sinus tachycardia; adrenal crisis is considered unlikely. With symptom resolution and normal vitals, discharge is appropriate. Plan: - Adenosine 6 mg IV push administered for diagnostic/therapeutic trial - IV crystalloid bolus given - Dicyclomine administered for abdominal pain with partial relief - Rest in ED until heart rate normalized to 80s - Discharged home with instructions to resume scheduled Decadron, monitor for recurrent palpitations or chest pain, and obtain close outpatient follow-up Diagnostics: - EKG: narrow-complex sinus tachycardia ~140 bpm, no ST-T abnormalities. Independently interpreted by Piotr sheets - Chest X-ray ([facility]): no acute cardiopulmonary process - Labs: D-dimer within normal limits; initial troponin normal; repeat troponin delta 0; CBC and BMP unremarkable - Urinalysis: negative for infection - CT abdomen/pelvis with IV contrast: no acute abnormality Reevaluations: - Heart rate decreased to 120s [id number]-[id number], then to 80s after fluids and rest; patient reports residual mild chest tightness without palpitations, vitals stable, ready for discharge Portions of this note were generated using voice recognition software (TrackTik Dictation). I have reviewed the contents and every effort has been made to ensure accuracy; however, inadvertent errors in grammar, spelling, punctuation, or word choice may occur, that were not noted before signing the document and should not alter the intended clinical meaning. Lab Data Attestation: I reviewed the patient's lab results. Labs: Laboratory Results - last 24 hr 10/20/25 10/20/25 10/20/25 09:30 11:15 11:45 WBC 7.6 RBC 4.80 Hgb 11.9 L Hct 38.2 MCV 79.6 L MCH 24.8 L MCHC 31.2 L RDW Std Deviation 47.5 H RDW Coeff of Renetta 16.7 H Plt Count 366 MPV 9.1 Immature Gran % (Auto) 0.500 Neut % (Auto) 54.8 Lymph % (Auto) 36.8 Rhea % (Auto) 7.5 Eos % (Auto) 0.0 Baso % (Auto) 0.4 Absolute Neuts (auto) 4.2 Absolute Lymphs (auto) 2.79 Nucleated RBC % 0 D-Dimer Quant (PE/DVT) 0.27 Sodium 137 Potassium 4.6 Chloride 101 Carbon Dioxide 21.4 Anion Gap 15 BUN 6 Creatinine 0.86 Estim Creat Clear Calc 106.86 Est GFR (MDRD) Non-Af 92 BUN/Creatinine Ratio 7.3 L Glucose 131 H Calcium 9.2 Troponin T High Sens < 6 Troponin T Hi Sens 2 Hr < 6 Urine Color Yellow Urine Clarity Clear Urine pH 6.0 Ur Specific Rusk 1.010 Urine Protein Negative Urine Glucose (UA) Normal Urine Ketones Negative Urine Occult Blood 10 H Urine Nitrite Negative Urine Bilirubin Negative Urine Urobilinogen Normal Ur Leukocyte Esterase Negative Urine RBC 0-5 SEEN Urine WBC 0 SEEN Ur Squamous Epith Cells 0-5 SEEN Urine Bacteria 0 SEEN Urine Mucus 0 SEEN Radiography Diagnostic Testing: Clinical Impression(s) from Imaging Studies Chest X-Ray 10/20/25 10:10 IMPRESSION: No Acute Findings. Reading Location: [facility] Abdomen/Pelvis CT 10/20/25 10:17 IMPRESSION: No acute abdominopelvic abnormalities. Reading Location: [facility] Rhythm Strip Rhythm Strip: Sinus Tach Rate: 120 Ectopy: None EKG Initial EKG: Attestation: I personally reviewed and interpreted this EKG as follows: Interpretation: No Acute Injury Pattern and Sinus Tachycardia (Vs AVNRT/SVT) Discharge Plan Triage Chief Complaint: Palpitations ED Provider: Piotr Garay Dx/Rx/DC Orders Clinical Impression: Rapid palpitations, Left sided abdominal pain, Davonte disease, Chest tightness Instructions: ED Heart Palpitations Prescriptions: No Action albuterol sulfate [Ventolin HFA] 90 mcg/actuation HFA aerosol inhaler 2 inh INHALATION Q4H PRN (Reason: sob) Patient Comments: Inhale 2 Puffs as instructed every 4 hours as needed. pantoprazole 40 mg tablet,delayed release (DR/EC) 40 mg PO DAILY atorvastatin 10 mg tablet 10 mg PO DAILY Patient Comments: TAKE 1 TABLET BY MOUTH ONCE DAILY levothyroxine 125 mcg tablet 125 mcg PO DAILY clomipramine 50 mg capsule 100 mg PO BID alprazolam 0.5 mg tablet 0.5 mg PO Q8H PRN (Reason: anxiety) topiramate 25 mg tablet 25 mg PO QHS lurasidone 60 mg tablet 60 mg PO QPM lamotrigine 100 mg tablet 100 mg PO DAILY Jardiance 10 mg tablet 10 mg PO DAILY ondansetron 4 mg tablet,disintegrating 4 mg PO TID PRN (Reason: nausea/vomiting) oxycodone 5 mg Tablet 5 mg PO Q6H PRN (Reason: Pain Score 4-10) 3 Days Qty: 12 0RF dexamethasone 1.5 mg tablet See Rx Instructions .ROUTE .COMPLEX Qty: 18 0RF Rx Instructions: Take 3 tablets daily for 3 days then 2 tablets daily for 3 days then 1 tablet daily for 3 days then resume your home dosing Primary Care Provider: Kevin Stauffer Referrals: Kevin Stauffer MD [Primary Care Provider, Medical] - As soon as possible Activity Restrictions/Additional Instructions: - Continue Decadron 0.75 mg once daily in the morning as prescribed by your employment educational coord. Make sure you take your morning dose today when you get home if you have not already had it. - Seek medical care right away or return to the emergency department if you develop new or worsening rapid heartbeats, chest tightness, dizziness, or abdominal pain. Print Language: Palauan Disposition Disposition: Home, Self Care
[2025-10-20 09:38] LABS: Hematocrit 38.2 % (37-47); Hemoglobin 11.9 g/dL (12.0-15.0); Immature Granulocytes Count 0.040 X10^3/uL (0.0-0.0); Mean Corp Hgb Conc 31.2 g/dL (32-36); Mean Corpuscular Volume 79.6 fL (81-99); Mean Platelet Vol. 9.1 fl (6.2-12.0); NRBC Flagged by Analyzer 0 % (0-5); Platelet Count 366 K/mm3 (150-450); RBC Distribution Width CV 16.7 % (11.6-14.6); RBC Distribution Width SD 47.5 fl (35.1-43.9); Red Blood Count 4.80 M/mm3 (4.2-5.4); White Blood Count 7.6 K/mm3 (4.4-11.0)
[2025-10-20] MEDS: 0.9% Normal Saline (500mL Bag) 500 ML 999 ML IV (09:43)
[2025-10-20 09:55] LABS: D-Dimer Quantitative (DVT/PE) 0.27 FEU/ug/m (0.27-0.49)
[2025-10-20 10:01] VITALS: BP 128/87; PULSE 97; RESP 18; O2SAT 100
[2025-10-20 10:02] LABS: Anion Gap 15 (7-18); BUN 6 mg/dL (4-19); BUN/Creat Ratio 7.3 RATIO (10-20); Calcium,Total 9.2 mg/dL (7.6-11.0); Carbon Dioxide 21.4 mmol/L (20.0-29.0); Chloride 101 mmol/L (96-106); Estimated Creatinine Clearance 106.86 ml/min (50-250); Glucose 131 mg/dL (70-99); Potassium 4.6 mmol/L (3.5-5.1); Troponin T High Sensitivity < 6 ng/L (<=14)
[2025-10-20] MEDS: Adenosine 6 MG/2 ML Syringe IV (10:02)
--- NOTE | 2025-10-20 10:10 | RAD_ITS ---
PROCEDURE: CHEST 1 VIEW (PORTABLE) 10/20/2025 REASON FOR EXAM: Tachycardia and weakness this morning, now pain. TECHNIQUE: Frontal view of the chest. COMPARISON: 09/16/2025 FINDINGS: LUNGS AND PLEURA: The lungs are clear. No pleural effusion or pneumothorax. HEART AND MEDIASTINUM: The heart size and mediastinal contours are normal. BONES: No acute osseous abnormality. RAD/Chest 1 View (Portable) IMPRESSION: No Acute Findings. Reading Location: [id number]
--- NOTE | 2025-10-20 10:17 | CT_ITS ---
PROCEDURE: ABDOMEN/PELVIS W IV CONT ONLY 10/20/2025 REASON FOR EXAM: LEFT SIDED ABD PAIN, NAUSEA TECHNIQUE: Procedure Code: [id number] Modality: CT Procedure: ABDOMEN/PELVIS W IV CONT ONLY Coronal and Sagittal reconstruction series were provided. CONTRAST: Isovue 370 VOLUME: 75 mL One or more dose reduction techniques were used (e.g., Automated exposure control, adjustment of the mA and/or kV according to patient size, use of iterative reconstruction technique. RADIATION DOSE SUMMARY: CTDlvol: 29.94 mGy DLP: 1192.9 mGycm COMPARISON: CT abdomen and pelvis September 16, 2025. FINDINGS: Lung bases: Clear. Liver: Liver steatosis. Hepatomegaly with the liver measures 20 cm in length. Gallbladder: Status post cholecystectomy. No biliary dilation. Spleen: Unremarkable. Pancreas: Unremarkable. Adrenals: Unremarkable. Kidneys: No hydronephrosis or nephrolithiasis. Bladder: Unremarkable. Reproductive Organs: Unremarkable. Bowel: No bowel wall thickening. No bowel obstruction. Appendix: Normal. Lymph nodes: No lymphadenopathy. Vasculature: No aneurysm. Peritoneum / Retroperitoneum: No free air or free fluid. Bones: No acute bony abnormalities. CT/Abdomen/Pelvis W IV Cont ONLY IMPRESSION: No acute abdominopelvic abnormalities. Reading Location: [facility]
[2025-10-20 11:00] VITALS: BP 116/84; PULSE 93; RESP 14; O2SAT 100
[2025-10-20 11:24] LABS: Mucous, Urine 0 SEEN /hpf (<or=2+)
[2025-10-20 11:32] LABS: Color, Urine Yellow (Yellow); Glucose, Dipstick Normal (Normal); Ketone-Dipstick Negative (Negative); Leukocyte Esterase-Dipstick Negative /ul (Negative); Nitrite-Dipstick Negative (Negative); Occult Blood-Urine 10 /ul (Negative); Protein-Dipstick Negative (Negative); Specific Gravity, Urine 1.010 (1.002-1.030); Urine Bilirubin Dipstick Negative (Negative)
[2025-10-20 11:50] LABS: Red Blood Cells-Urine 0-5 SEEN /hpf (0-5); Squamous Epithelial Cells - UA 0-5 SEEN /hpf (5-10)
[2025-10-20 12:00] VITALS: BP 116/83; PULSE 86; RESP 16; O2SAT 100
[2025-10-20 12:22] LABS: Troponin T High Sens 2 HR < 6 ng/L (<=14)
[2025-10-20 12:38] VITALS: BP 112/78; PULSE 70; RESP 12; TEMP 36.6; O2SAT 100
== END 2025-10-20 12:48 | disposition home or self-care (01) ==
PROVIDERS: Emergency Provider Emergency Medicine; PCP Family Medicine; Visit Provider Emergency Medicine
DX: R00.0 Tachycardia, unspecified (principal); E27.1 Primary adrenocortical insufficiency; R42 Dizziness and giddiness; R10.9 Unspecified abdominal pain; R07.89 Other chest pain; R00.2 Palpitations; Z87.891 Personal history of nicotine dependence
CPT/HCPCS: 71045; 74177; 80048; 81001; 84484; 85025; 85379; 93005; 96361; 96374; 96375; 99284; Q9967; A4216; J0153; J2405